=== PATIENT | female | born 1940 | race Caucasian/White ===

== ENCOUNTER 2017-08-24 16:30 | Emergency (ER) | payer MEDICARE, SELFPAY ==
[2017-08-24 16:30] VITALS: BP 102/46; PULSE 96; RESP 26; TEMP 36.9; O2SAT 99; BMI 34.9
--- NOTE | 2017-08-24 17:08 | RAD_ITS ---
XR Chest 2 Views INDICATION: pt stated short of breath cough and fever COMPARISON: None TECHNIQUE: 2 views of the chest FINDINGS: The heart size is mildly enlarged. Pulmonary vascularity is within normal limits. Lungs are clear without evidence of airspace consolidation or pleural effusion. Osseous structures are grossly unremarkable. RAD/Chest PA and Lateral IMPRESSION: Cardiomegaly. Lungs appear clear. at 1849 Reported and signed by: Stacy Tapia MD Electronically Signed: Stacy Tapia MD at 17:47 EST Tel , Service support ,
--- NOTE | 2017-08-24 17:08 | EKG12_ITS ---
Test Reason : SOB Blood Pressure : / mmHG Vent. Rate : 093 BPM Atrial Rate : 093 BPM P-R Int : 178 ms QRS Dur : 084 ms QT Int : 374 ms P-R-T Axes : 020 -21 047 degrees QTc Int : 465 ms Normal sinus rhythm Normal ECG Confirmed by SOLEDAD STREETER, RENY ([id number]), video tape editor ADALID CARTER ([id number]) on 08/27/2017 10:37:34 AM Referred By: EITAN Confirmed By:RENY ROWE MD
--- NOTE | 2017-08-24 17:11 | ED.DCSUM_ITS ---
- ER Visit Summary Date of Service: 08/24/17 Chief Complaint: [] Runny nose harsh cough for almost 2 months History of Present Illness: The patient is a 77 F [] began early June she was thoroughly evaluated as an outpatient by her physicians she believes she was tested for the flu she has been on multiple antibiotics, she has persistence of a harsh dry cough, she was recently referred to Dr. Mullen of ENT who examined her told her she had upper respiratory infection, she is on antibiotic and a nasal spray, she also has a nebulizer machine she can use at home. She has no history of [place] PE or DVT she does have history of prior stroke and a heart murmur. She is able lie flat she is able to walk no orthopnea. She simply states she has a persistence of this harsh cough she feels that has triggered her anxiety, she is taking all of her anxiety medications Physical Examination: [] Vital signs are within normal range she speaking full sentences she is in no distress her pulse ox is 98% on room air she does have a harsh dry cough here her nose is congested the throat is clear the lungs are clear the heart tones really unremarkable the abdomen soft obese but nontender upper lower extreme is unremarkable sinus clubbing or edema neurologically she is awake alert moving all 4 clinically she looks well Test Results: [] Emergency Department Course and Treatment: [] Patient bluntly told me that she feels the symptoms related to her anxiety she wants her anxiety medications adjusted I explained her we will do a screening examination to look for medical condition causing the coughing any adjustments to her anxiety medications need to be obtained by her primary care doctors EKG labs chest x-ray are all unremarkable see those reports, the patient's resting comfortably in the department, she is in absolutely no distress smiling and talking normally I explained her she likely has a URI that is causing the persistent coughing she has been on antibiotics she is currently on antibiotics she is on a nasal inhaler she has a nebulizer machine at home with the meds I have asked her to use that she insists that there is an issue with her anxiety and that net meds need to be adjusted and have asked her to discuss that with her primary care doctors and return for change in symptoms Treatment Plan: [] Disposition: [] Stable Impression: [] URI with harsh cough, history of anxiety, patient concerned her anxiety regimen should be altered This note was generated with [employer] software. It may contain incorrect words, spelling, and punctuation that were not noted in review of the chart prior to signing ED Disposition - Plan for ED Patient: Chief Complaint: Shortness of Breath Referrals: Doris Navarro DO [Primary Care Provider] -
[2017-08-24 17:20] VITALS: PULSE 99; RESP 24
[2017-08-24] MEDS: Ipratropium/Albuterol Sulfate 3 ML AMPUL.NEB INHALATION (17:20)
[2017-08-24] MEDS: MethylPREDNISolone 125 MG/2 ML Vial IV (17:31)
[2017-08-24] MEDS: 0.9% Normal Saline 1,000 ML 150 ML IV (17:42)
[2017-08-24 17:53] LABS: Absolute Lymphocyte Count 1.65 X10^3/ul (0.83-4.51); Absolute Neutrophil Count 1.9 X10^3/uL (2.0-7.7); Basophil# 0.01 X10^3/uL; Basophil% 0.2 % (0-1); Eosinophil# 0.04 X10^3/uL; Hemoglobin 13.6 g/dl (12.0-15.0); Lymphocyte # 1.65 X10^3/ul (4.0); Lymphocyte % 40.1 % (19-41); Mean Corp Hgb Conc 32.4 g/gl (32-36); Mean Corpuscular Hgb 28.5 pg (27.0-32.0); Mean Corpuscular Volume 87.9 fL (81-99); Mean Platelet Vol. 9.9 fl (6.2-12.0); Monocyte# 0.47 X10^3/uL; Monocyte% 11.4 % (0-10); Neutrophil # 1.93 X10^3/uL (2.7-7.7); Neutrophil % 47.1 % (47-70); Platelet Count 215 K/mm3 (150-450); RBC Distribution Width SD 48.5 fl (35.1-43.9); Red Blood Count 4.78 M/mm3 (4.2-5.4); White Blood Count 4.1 K/mm3 (4.4-11.0)
[2017-08-24 17:56] LABS: POSITIVE COUNT NO; POSITIVE DIFFERENTIAL NO; POSITIVE MORPHOLOGY NO
[2017-08-24 18:11] LABS: Anion Gap 11 (5-15); BUN 30 mg/dL (7-18); Calcium,Total 9.3 mg/dL (8.5-10.1); Chloride 105 mmol/L (98-107); Creatinine, Serum 1.76 mg/dL (0.55-1.02); EST Glomerular Filtration Rate 30 mL/min (>60); Est Glom Filt Rate - Afr Amer 36 mL/min (>60); Estimated Creatinine Clearance 24.47 ml/min; Glucose 178 mg/dL (70-110); Potassium 3.5 mmol/L (3.5-5.1); Sodium Level 140 mmol/L (136-145)
[2017-08-24 18:17] VITALS: BP 175/98; PULSE 95; RESP 24; O2SAT 100
--- NOTE | 2017-08-24 18:20 | ED.DEP ---
ED Disposition - Plan for ED Patient: Chief Complaint: Shortness of Breath Instructions: ED Reactive Airway Disease, ED Bronchitis Asthmatic, ED Upper Resp Infec No Abx Tx Referrals: Doris Navarro DO [Primary Care Provider] -
[2017-08-24 18:51] LABS: BNP,B-Type NATRIURETIC PEPTIDE 13.3 pg/mL (0-100)
[2017-08-24 19:51] VITALS: BP 173/86; PULSE 91; RESP 26; O2SAT 99
== END 2017-08-24 19:52 | disposition home or self-care (01) ==
PROVIDERS: Emergency Provider Emergency Medicine; Family Provider Internal Medicine; PCP Internal Medicine
DX: J06.9 Acute upper respiratory infection, unspecified (principal); F41.9 Anxiety disorder, unspecified; R05 Cough; R06.02 Shortness of breath; R01.1 Cardiac murmur, unspecified; Z86.73 Personal history of transient ischemic attack (TIA), and cerebral infarction without residual deficits; Z79.899 Other long term (current) drug therapy
CPT/HCPCS: 71046; 80048; 83880; 84484; 85025; 93005; 94640; 96361; 96374; 99284; J7030; A4216

== ENCOUNTER → 2017-10-29 11:22 | Outpatient (CLI) | payer MEDICARE, SELFPAY ==
--- NOTE | 2017-10-29 11:23 | RAD_ITS ---
STUDY: X-RAY - PELVIS AND LEFT HIP REASON FOR EXAM: Female, 77 years old. Left hip pain for 2 weeks. No history of trauma. TECHNIQUE: Radiological exam, hip, unilateral, with pelvis when performed; 2 or 3 views. COMPARISON: None. FINDINGS: There is a non-specific bowel gas pattern. Normal visualized soft tissue structures. Normal bilateral iliac wings, sacroiliac joints and visualized sacrum. Normal bilateral superior and inferior pubic rami. Normal pubic symphysis. Normal bilateral ischial tuberosities. Right hip is grossly normal. Normal visualized left femoral head. Normal acetabulum. Normal hip joint. Disc space narrowing in the lower lumbar spine. Phleboliths left hemipelvis. RAD/Hip 2-3 Views with Pelvis IMPRESSION: Normal x-ray examination of the pelvis and hip. Degenerative changes of the lower lumbar spine. Electronically Signed: Benji Finch MD at 0:01 EDT , Service support ,
== END ==
PROVIDERS: Family Provider Internal Medicine; PCP Internal Medicine; Visit Provider Nurse Practitioner Gerontology
DX: M25.551 Pain in right hip (principal); M51.36 Other intervertebral disc degeneration, lumbar region
CPT/HCPCS: 73502

== ENCOUNTER 2017-11-12 10:30 | Outpatient (RCR) | payer MEDICARE, SELFPAY ==
--- NOTE | 2018-05-08 08:52 | HP.PT.NRP ---
HP - Discharge Summary (1) - Patient Information NITZA CRUZ was seen in my office for initial evaluation on 11/05/17. The following Plan of Care was established for this patient: Initial Frequency: 2x /Week Initial Duration: 4 Weeks - Anticipated Interventions Patient/Client Instruction: Educate patient on: Condition, Plan of Care, Risk Factors, Benefits of Fitness Program For the Purpose of:: To improve health and function, To foster healthy habits, To improve decision making, To facilitate caregiver knowledge, To improve self management, To prevent re-injury, To improve ability to perform tasks related to life management, To improve tolerance to ADL's Therapeutic Exercise to Include: Strength training, Power training, Endurance training, Postural training, Flexibilty training, Gait and locomotor training, Passive ROM, Active ROM, Dynamic Lumbar Stabilization For the Purpose of:: To decrease pain, To increase ROM, To improve nutrient delivery to tissue, To increase oxygenation perfusion, To improve muscle performance and motor function, To improve ability to perform ADL's, To improve health of tissue, To decrease soft tissue restriction, To increase flexibility/ROM Manual Therapy Techniques to Include: Mobilization, Passive ROM, Functional dry needling For the Purpose of:: To decrease pain, To increase ROM, To improve nutrient delivery to tissue, To increase oxygenation perfusion, To improve muscle performance and motor function IF ES: Yes Cryotherapy (ice pack, ice massage): Yes Thermo therapy (hot pack): Yes Ultrasound (thermal/non thermal): Yes For the Purpose of:: To decrease pain, To increase ROM This patient was last seen in our office 11/05/17. Pertinent comments regarding their Physical therapy will appear below: Pt. was seen for her L hip pain. At our last visit, pt. reports no longer having pain. She was to complete exercises on her own and follow up with PT if needed. Pt. has not sid seen in several months and will be DC from PT at this point in time. At this point I will be discontinuing this patient from physical therapy. I would be happy to see this patient again in the future if found appropriate by the physician. Thank you! Eugenio Correa
== END 2017-11-12 19:00 | disposition home or self-care (01) ==
LOC: PT 10:30
PROVIDERS: Family Provider Internal Medicine; PCP Internal Medicine; Visit Provider Internal Medicine
DX: M25.552 Pain in left hip (principal)
CPT/HCPCS: 97110; 97162

== ENCOUNTER → 2017-11-25 10:33 | Outpatient (CLI) | payer MEDICARE, SELFPAY ==
--- NOTE | 2017-11-25 10:35 | US_ITS ---
STUDY: ABDOMINAL ULTRASOUND - RIGHT UPPER QUADRANT REASON FOR VISIT: Female, 77 years old. Elevated LFTs TECHNIQUE: Ultrasound evaluation of the right upper quadrant was performed with real-time and static anderson-scale imaging. TECHNICAL QUALITY: Adequate. COMPARISON: Previous CTs FINDINGS: Liver: The liver measures 18.1 cm. There is increased echogenicity consistent with fatty infiltration. The bile ducts are within normal limits. There is hepatic color flow. The direction of portal flow is hepatopetal. There is no demonstrated mass lesion. Gallbladder: The patient is status post cholecystectomy. Common Bile Duct (C.B.D.): The common bile duct measures 6 mm. Pancreas: Normal size of the head, body and tail of the pancreas. There is increased echogenicity of the pancreas. There is no demonstrated pancreatic mass or cyst. Right Kidney: Normal size of the right kidney. The right kidney measures 10.3 x 6.1 x 5.7 cm. Normal renal cortex. The right cortex measures 0.9 cm. There are multiple simple renal cysts measuring between 1.3 and 4.0 cm There is no right hydronephrosis. US/Liver IMPRESSION: Fatty infiltration of liver, no discrete lesion Previous cholecystectomy Nonspecific echogenic pancreas Simple right renal cysts Electronically Signed: Leopoldo Hand MD at 12:34 EDT , Service support ,
== END ==
PROVIDERS: Family Provider Internal Medicine; PCP Internal Medicine; Visit Provider Internal Medicine
DX: K76.0 Fatty (change of) liver, not elsewhere classified (principal); Z90.49 Acquired absence of other specified parts of digestive tract; N28.1 Cyst of kidney, acquired; R74.8 Abnormal levels of other serum enzymes
CPT/HCPCS: 76705

== ENCOUNTER 2018-02-06 17:28 | Observation (INO) | payer MEDICARE, SELFPAY ==
[2018-02-06] VITALS (10 sets, daily range): BP systolic 139–163; BP diastolic 59–113; PULSE 57–71; RESP 15–21; TEMP 36.4–36.9; O2SAT 95–98; BMI 36.5
--- NOTE | 2018-02-06 17:55 | EKG12_ITS ---
Test Reason : HEADACHE Blood Pressure : / mmHG Vent. Rate : 064 BPM Atrial Rate : 064 BPM P-R Int : 204 ms QRS Dur : 088 ms QT Int : 410 ms P-R-T Axes : 040 -23 071 degrees QTc Int : 422 ms Normal sinus rhythm Normal ECG Confirmed by KYRA STREETER, FERN ([id number]), medical transcription editor ADALID CARTER ([id number]) on 02/11/2018 2:12:44 PM Referred By: RON Confirmed By:FERN RAE MD
--- NOTE | 2018-02-06 17:55 | CT_ITS ---
STUDY: CT BRAIN WITHOUT CONTRAST REASON FOR EXAM: Female, 77 years old. Blurred vision and headache. Prior history of stroke. RADIATION DOSAGE (If Supplied By Facility): CTDIvol = ( 44.99 ) mGy, DLP = ( 779.24 ) mGycm TECHNIQUE: Transaxial CT imaging of the brain was performed without administration of intravenous contrast material. Individualized dose optimization techniques were used for this CT. COMPARISON: Prior CT exam of March 03, 2017 FINDINGS: Normal soft tissue structures. Normal calvarium. There is mild cerebral atrophy with widening of the extra-axial spaces and ventricular dilatation. There are areas of decreased attenuation within the white matter tracts of the supratentorial brain, consistent with microvascular disease changes. More advanced focal ischemic changes in the deep white matter of the left hemisphere, periventricular which may be the sequelae of an old infarct. The finding is stable from the prior examination. Old lacunar infarct of the mid karlene. There is mild cerebellar atrophy. There is no intracranial hemorrhage. There are no findings of an acute ischemic infarction. Mild mucosal thickening and a small retention cyst at the base of the left maxillary sinus. CT/Brain/Head without Contrast IMPRESSION: No acute intracranial findings or changes. Negative for hemorrhage, hematoma or mass density. Negative for definitive demarcation of the new nonhemorrhagic infarct zone. Stable involutional changes. Asymmetric small vessel ischemic changes versus old white matter infarct left hemisphere. Old lacunar infarct of the mid karlene. Incidental sinus findings as above. Electronically Signed: Renata Lee MD at 19:29 EDT , Service support ,
[2018-02-06 18:21] LABS: Bedside Glucose 152 mg/dL (70-110)
[2018-02-06 18:22] LABS: Absolute Lymphocyte Count 1.73 X10^3/ul (0.83-4.51); Absolute Neutrophil Count 6.7 X10^3/uL (2.0-7.7); Basophil# 0.04 X10^3/uL; Basophil% 0.4 % (0-1); Eosinophil# 0.38 X10^3/uL; Hematocrit 38.9 % (37-47); Hemoglobin 12.7 g/dl (12.0-15.0); Lymphocyte # 1.73 X10^3/ul (4.0); Lymphocyte % 18.3 % (19-41); Mean Corp Hgb Conc 32.6 g/gl (32-36); Mean Corpuscular Hgb 29.1 pg (27.0-32.0); Mean Corpuscular Volume 89.2 fL (81-99); Mean Platelet Vol. 10.5 fl (6.2-12.0); Monocyte# 0.59 X10^3/uL; Monocyte% 6.2 % (0-10); Neutrophil % 70.8 % (47-70); Platelet Count 248 K/mm3 (150-450); RBC Distribution Width CV 14.1 % (11.6-14.6); Red Blood Count 4.36 M/mm3 (4.2-5.4); White Blood Count 9.5 K/mm3 (4.4-11.0)
[2018-02-06 18:33] LABS: Anion Gap 8 (5-15); BUN 24 mg/dL (7-18); BUN/Creat Ratio 16.9 RATIO (10-20); Calcium,Total 9.5 mg/dL (8.5-10.1); Chloride 103 mmol/L (98-107); Creatinine, Serum 1.42 mg/dL (0.55-1.02); EST Glomerular Filtration Rate 38 mL/min (>60); Est Glom Filt Rate - Afr Amer 46 mL/min (>60); Estimated Creatinine Clearance 44.65 ml/min; Glucose 160 mg/dL (74-106); Potassium 4.2 mmol/L (3.5-5.1); Sodium Level 139 mmol/L (136-145)
--- NOTE | 2018-02-06 18:35 | RAD_ITS ---
STUDY: X-RAY CHEST REASON FOR EXAM: Female, 77 years old. Headache and blurred vision. TECHNIQUE: 1 view COMPARISON: Prior chest radiograph of August 24, 2017 FINDINGS: Lung medeiros remain expanded without new consolidation or focal atelectasis. Mild chronic change at the right lung base above an elevated diaphragm. Normal size heart. Fatty mediastinum. Normal visualized pulmonary arteries. There is atherosclerotic calcification of the aortic arch with tortuosity. Mild scoliosis. Multiple prior healed right rib fractures. There is no demonstrated abnormality of the visualized soft tissue structures of the upper abdomen. RAD/Chest 1 View IMPRESSION: No acute cardiopulmonary findings or changes. Negative for new consolidation, focal atelectasis or a substantial pleural effusion. Mild chronic changes in the right lung base above a mildly elevated diaphragm. Multiple prior healed right rib fractures. Electronically Signed: Renata Lee MD at 18:58 EDT , Service support ,
[2018-02-06 18:38] LABS: International Normalized Ratio 0.9; Prothrombin Time (Protime)PT. 12.5 SECONDS (11.7-14.9)
[2018-02-06 19:01] LABS: POSITIVE COUNT NO; POSITIVE DIFFERENTIAL NO; POSITIVE MORPHOLOGY NO
[2018-02-06] MEDS: Ondansetron 4 MG/2 ML Vial IV (19:30)
--- NOTE | 2018-02-06 20:24 | ED.DCSUM_ITS ---
- ER Visit Summary Date of Service: 02/06/18 Chief Complaint: Double vision History of Present Illness: The patient is a 77 F presenting for evaluation secondary to diplopia. Patient states that yesterday she started to notice that she was having some double vision. She reports that this came and went. Patient reports that today she was noticing that she was having some blurry vision, and then when she was in the car she had a sudden onset of worsening double vision. She reports that things that are far away especially appear to be side by side. This is improved by closing one eye. Patient denies that she has any sort of numbness weakness or speech difficulty associated with this. Patient had a history of a stroke in the distant past. She denies any head injuries. She does endorse mild headache associated with it. No infectious signs or symptoms. Review of systems otherwise negative. Physical Examination: Vital signs are within normal limits, patient is afebrile. General: Patient is well-nourished well-developed and in no acute distress. Head: Normocephalic, atraumatic Eyes: Pupils equal round and reactive bilaterally, extra occular motion intact bialterally, no evidence of disconjugate gaze or nystagmus ENT: Moist mucous membranes Neck: Supple, no lymphadenopathy, no JVD, no meningismus CVS: Heart regular rate and rhythm, no murmurs, rubs or gallops, radial pulses 2 + bilaterally Resp: Respirations nondistressed, lung sounds clear bilaterally Abdomen: Soft, nontender, nondistended, no palpable masses, normal bowel sounds Back: Nontender Extremities: Nontender, atraumatic, active full range of motion, no peripheral edema Skin: warm, no rashes, no petechia Neuro: Alert and oriented x 4, CN 2-12 intact, no lateralizing neurological defecits, NIH stroke scale is 0, normal cerebellar testing Psyc: Normal affect Test Results: CT brain shows chronic changes. EKG demonstrates sinus rate [address] segments normal T waves no changes from prior. CBC chemistry and troponin are unremarkable. Emergency Department Course and Treatment: Patient presents for evaluation secondary to diplopia. A stroke workup was obtained and was found to be unremarkable. Patient's last stroke workup was 6 years ago. I believe she requires admission. I discussed this with the hospitalist. Disposition: Admission Impression: 1. Diplopia This note was generated with [employer] dictation software. It may contain incorrect words, spelling, and punctuation that were not noted in review of the chart prior to signing ED Disposition - Plan for ED Patient: Chief Complaint: Headache Referrals: Doris Navarro DO [Primary Care Provider] -
--- NOTE | 2018-02-06 20:51 | PCM.HP.STD ---
Problem List (1) CKD (chronic kidney disease) stage 3, GFR 30-59 ml/min Status: Chronic (2) Esophageal reflux Status: Chronic (3) Type 2 diabetes mellitus Status: Chronic (4) Obesity Status: Chronic (5) Hypothyroidism Status: Chronic (6) CVA (cerebral vascular accident) Status: Chronic (7) Hypertension Status: Chronic History of Present Illness Date of Admission: 02/06/18 Chief Complaint: Diplopia, blurry vision. The patient is a 77 year old F with past medical history as mentioned above presented to the emergency room because of diplopia and blurry vision. Her symptoms started yesterday evening with seeing things double, intermittent, comes and goes, associated with blurry vision, improved by closing one eye and it happens on both eyes and taking care of glasses off does not make any difference. Her mentioned that she complained of headache 2 days ago and usually never complains of headache. She denied slurred speech, facial numbness and tingling. She denied numbness or tingling of both upper or lower extremities. She had history of stroke with very minimal weakness on the right side of her body. She denied head injury or mechanical fall. She denied ear symptoms or pain. She denies fever or chills. She denied chest pain or shortness of breath. In the emergency department, her vital signs were stable. Her routine blood work was remarkable for creatinine 1.42, otherwise normal. EKG revealed normal sinus rhythm without evidence of cardiac arrhythmias or acute ischemic changes. Troponin is negative. CT scan brain showed no acute infarction or hemorrhage. Chest x-ray showed no acute findings. She is being admitted for diplopia/blurred vision, possible TIA for evaluation. Past Medical History Past Medical History (Chronic Problems): Chronic Problems CKD (chronic kidney disease) stage 3, GFR 30-59 ml/min (Chronic) Esophageal reflux (Chronic) History of pancreatitis (Chronic) History of abdominal pain (Chronic) Type 2 diabetes mellitus (Chronic) Obesity (Chronic) Hypothyroidism (Chronic) CVA (cerebral vascular accident) (Chronic) Hypertension (Chronic) Allergies naproxen [From Naprosyn] Allergy (Verified 02/06/18 17:38) Hives Penicillins [PCN] Allergy (Verified 02/06/18 17:38) Hives guaifenesin [From Mucinex] Adverse Reaction (Verified 02/06/18 17:38) Unknown ketoprofen Adverse Reaction (Verified 02/06/18 17:38) Unknown loracarbef [From Lorabid] Adverse Reaction (Verified 02/06/18 17:38) Unknown bee sting Adverse Reaction (Uncoded 02/06/18 17:38) Unknown Home Medications: Ambulatory Orders Medication Instructions Recorded Alprazolam 0.05 mg PO BID PRN 08/09/13 Amlodipine Besylate 5 mg PO DAILY 08/09/13 Celecoxib [Celebrex] 100 mg PO DAILY 08/09/13 Citalopram Hydrobromide 40 mg PO DAILY 08/09/13 [Citalopram HBr] Clopidogrel Bisulfate [Clopidogrel] 75 mg PO DAILY 08/09/13 Hydrochlorothiazide 25 mg PO DAILY 08/09/13 Metformin HCl [Metformin HCl ER] 500 mg PO BREAKFAST 08/09/13 Metoprolol Tartrate [Lopressor 100 mg PO DAILY 08/09/13 (beta mert)] Omeprazole 20 mg PO DAILY 08/09/13 Rosuvastatin Calcium [Crestor] 5 mg PO DAILY 09/19/15 Losartan Potassium [Cozaar] 50 mg PO BID 10/22/16 Levothyroxine [Synthroid] 200 mcg PO DAILY 02/06/18 Surgical History: appendectomy, cholecystectomy Psychiatric History: No pertinent psych hx [employer] History: No pertinent [employer]ER history Lives: Spouse/ Significant Other Smoking Status: Never smoker Alcohol: None Drugs: None - *Family History Maternal History Items: No pertinent history Paternal History Items: No pertinent history Review of Systems Constitutional: Denies: Anorexia, Chills, Fever, Weakness Eyes: Reports: Blurred vision, Double vision. Denies: Drainage, Redness, Vision Change HEENT: Denies: Difficulty Hearing, Ear Pain, Eye Pain, Nasal Congestion, Sore Throat Cardiovascular: Denies: Chest Pain, Chest Pressure, Chest Tightness, Heaviness, Light Headedness, Palpitations, Syncope Respiratory: Denies: Cough, Pleuritic Pain, Shortness of Breath, Sputum production, Wheezing Gastrointestinal: Denies: Abdominal Pain, Constipation, Diarrhea, Nausea, Vomiting Genitourinary: Denies: Dysuria, Frequency, Hematuria Musculoskeletal: Denies: Arm Pain, Back Pain, Foot Pain Skin: Denies: Dryness, Rash Neurological: Reports: Blurred vision, Double vision, Headaches. Denies: Balance problems, Change in Speech, Slurred speech, Confusion, Focal weakness, Numbness, Tingling Psychiatric: Denies: Anxiety, Depression Endocrine: Denies: Change in Body Habitus, Polydipsia VTE Information - Inpt Only VTE Present on Admission: No VTE Mechan Device Prophylaxis: None VTE Pharm Prophylaxis ordered?: Yes - Physical Exam General: Alert, Oriented x3, Cooperative, No apparent distress HEENT: Atraumatic, PERRLA, EOMI Oral: Moist Mucosa, No Gingival or Mucosal Lesions/ Ulcerations Neck: Supple, No JVD, Negative Carotid Bruits, Trachea Midline, Thyroid Normal Size and Texture Lungs: Clear to auscultation, No rhonchi, No wheeze, No rales, Diminished Cardiovascular: Regular rate, Regular Rhythm, Normal S1, Normal S2, PMI Normal Abdomen: Bowel Sounds Present, Soft, Non Tender, Non-Distended, No Hepato-splenomegaly, Obese Extremities: No clubbing, No cyanosis, No edema Skin: No rashes, No breakdown Musculoskeletal: No Tenderness to Palpation of Joints or Extremities Lymphatic: No Cervical, Supraclavicular, or Inguinal Adenopathy Neurological: Cranial nerves II-XII grossly intact, Motor Exam 5/5 strength throughout Psych/Mental Status: Normal Affect, Appropriate, Alert and oriented to time, place, person, mood and affect Vital Signs Temp Pulse Resp BP Pulse Ox 97.6 F L 63 17 150/68 H 98 02/06/18 17:29 02/06/18 20:19 02/06/18 20:19 02/06/18 20:19 02/06/18 20:19 Oxygen Delivery Method Room Air Weight: 185 lb Body Mass Index (BMI) 0.2 Finger Stick Blood Glucose 152 Laboratory Tests Past 24 Hrs 02/06/18 02/06/18 02/06/18 17:45 17:45 17:45 WBC 9.5 RBC 4.36 Hgb 12.7 Hct 38.9 MCV 89.2 MCH 29.1 MCHC 32.6 RDW 14.1 RDW Differential 45.0 H Plt Count 248 MPV 10.5 Immature Gran % (Auto) 0.300 Neut % (Auto) 70.8 H Lymph % (Auto) 18.3 L [place] % (Auto) 6.2 Eos % (Auto) 4.0 Baso % (Auto) 0.4 Absolute Neuts (auto) 6.7 Absolute Lymphs (auto) 1.73 Total Counted Not Reportable PT 12.5 INR 0.9 APTT 33.0 Sodium 139 Potassium 4.2 Chloride 103 Carbon Dioxide 28.0 Anion Gap 8 BUN 24 H Creatinine 1.42 H Estim Creat Clear Calc 44.65 Est GFR (MDRD) Af Amer 46 L Est GFR (MDRD) Non-Af 38 L BUN/Creatinine Ratio 16.9 Glucose 160 H Calcium 9.5 Troponin I < 0.015 POC Glucose 02/06/18 18:16 POC Glucose 152 H Clinical Impression(s) from Imaging Studies Brain CT 02/06/18 17:55 IMPRESSION: No acute intracranial findings or changes. Negative for hemorrhage, hematoma or mass density. Negative for definitive demarcation of the new nonhemorrhagic infarct zone. Stable involutional changes. Asymmetric small vessel ischemic changes versus old white matter infarct left hemisphere. Old lacunar infarct of the mid karlene. Incidental sinus findings as above. Electronically Signed: Renata Lee MD at 19:29 EDT , Service support , Chest X-Ray 02/06/18 18:35 IMPRESSION: No acute cardiopulmonary findings or changes. Negative for new consolidation, focal atelectasis or a substantial pleural effusion. Mild chronic changes in the right lung base above a mildly elevated diaphragm. Multiple prior healed right rib fractures. Electronically Signed: Renata Lee MD at 18:58 EDT , Service support , Assessment/Plan This is a 77 years old female patient presented to the emergency room because of blurred vision/diplopia and she is being admitted for evaluation for probable TIA. #1 diplopia/blurred vision/questionable TIA versus acute stroke: Initial CT scan brain without acute findings. No focal deficit on physical exam. Vital signs are stable. EKG revealed normal sinus rhythm, no acute ischemic changes. Routine blood work reviewed. She did have history of stroke around 8 years ago with minimal residual right-sided body weakness. Plan: Admit to PCU, cardiac monitoring, NIH stroke scale, MRI brain, 2D echocardiogram, bilateral carotid Doppler, neurology consult, continue Plavix and Crestor, PT OT evaluation and treatment. #2 hypertension: Blood pressure stable, continue Norvasc, HCTZ and losartan as well as metoprolol. #3 type 2 diabetes mellitus: ADA diet, Accu-Cheks, insulin sliding scale, hold metformin. #4 hypothyroidism: Continue levothyroxine. #5 history of stroke: With no obvious significant residual deficit of the patient complained of right-sided weakness but her power is 5.5 on all limbs. Plan as above, continue Plavix and statins. #6 hyperlipidemia: Continue statins. #7 stage III chronic kidney disease: Baseline creatinine is around 1.3-1.7 mg/dL. Admission creatinine is 1.42, stable. #8 DVT prophylaxis: Subcu heparin. This note was generated with [employer] dictation software. It may contain incorrect words, spelling, and punctuation that were not noted in checking the note before signing. Code Visit OBSV E&M: 52540 Initial observation care L3
--- NOTE | 2018-02-06 21:01 | HP.PCM_ITS ---
Problem List (1) CKD (chronic kidney disease) stage 3, GFR 30-59 ml/min Status: Chronic (2) Esophageal reflux Status: Chronic (3) Type 2 diabetes mellitus Status: Chronic (4) Obesity Status: Chronic (5) Hypothyroidism Status: Chronic (6) CVA (cerebral vascular accident) Status: Chronic (7) Hypertension Status: Chronic History of Present Illness Date of Admission: 02/06/18 Chief Complaint: Diplopia, blurry vision. The patient is a 77 year old F with past medical history as mentioned above presented to the emergency room because of diplopia and blurry vision. Her symptoms started yesterday evening with seeing things double, intermittent, comes and goes, associated with blurry vision, improved by closing one eye and it happens on both eyes and taking care of glasses off does not make any difference. Her mentioned that she complained of headache 2 days ago and usually never complains of headache. She denied slurred speech, facial numbness and tingling. She denied numbness or tingling of both upper or lower extremities. She had history of stroke with very minimal weakness on the right side of her body. She denied head injury or mechanical fall. She denied ear symptoms or pain. She denies fever or chills. She denied chest pain or shortness of breath. In the emergency department, her vital signs were stable. Her routine blood work was remarkable for creatinine 1.42, otherwise normal. EKG revealed normal sinus rhythm without evidence of cardiac arrhythmias or acute ischemic changes. Troponin is negative. CT scan brain showed no acute infarction or hemorrhage. Chest x-ray showed no acute findings. She is being admitted for diplopia/blurred vision, possible TIA for evaluation. Past Medical History Past Medical History (Chronic Problems): Chronic Problems CKD (chronic kidney disease) stage 3, GFR 30-59 ml/min (Chronic) Esophageal reflux (Chronic) History of pancreatitis (Chronic) History of abdominal pain (Chronic) Type 2 diabetes mellitus (Chronic) Obesity (Chronic) Hypothyroidism (Chronic) CVA (cerebral vascular accident) (Chronic) Hypertension (Chronic) Allergies naproxen [From Naprosyn] Allergy (Verified 02/06/18 17:38) Hives Penicillins [PCN] Allergy (Verified 02/06/18 17:38) Hives guaifenesin [From Mucinex] Adverse Reaction (Verified 02/06/18 17:38) Unknown ketoprofen Adverse Reaction (Verified 02/06/18 17:38) Unknown loracarbef [From Lorabid] Adverse Reaction (Verified 02/06/18 17:38) Unknown bee sting Adverse Reaction (Uncoded 02/06/18 17:38) Unknown Home Medications: Ambulatory Orders Medication Instructions Recorded Alprazolam 0.05 mg PO BID PRN 08/09/13 Amlodipine Besylate 5 mg PO DAILY 08/09/13 Celecoxib [Celebrex] 100 mg PO DAILY 08/09/13 Citalopram Hydrobromide 40 mg PO DAILY 08/09/13 [Citalopram HBr] Clopidogrel Bisulfate [Clopidogrel] 75 mg PO DAILY 08/09/13 Hydrochlorothiazide 25 mg PO DAILY 08/09/13 Metformin HCl [Metformin HCl ER] 500 mg PO BREAKFAST 08/09/13 Metoprolol Tartrate [Lopressor 100 mg PO DAILY 08/09/13 (beta mert)] Omeprazole 20 mg PO DAILY 08/09/13 Rosuvastatin Calcium [Crestor] 5 mg PO DAILY 09/19/15 Losartan Potassium [Cozaar] 50 mg PO BID 10/22/16 Levothyroxine [Synthroid] 200 mcg PO DAILY 02/06/18 Surgical History: appendectomy, cholecystectomy Psychiatric History: No pertinent psych hx 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 Denies: Drainage, Redness, Vision Change HEENT: Denies: Difficulty Hearing, Ear Pain, Eye Pain, Nasal Congestion, Sore Throat Cardiovascular: Denies: Chest Pain, Chest Pressure, Chest Tightness, Heaviness, Light Headedness, Palpitations, Syncope Respiratory: Denies: Cough, Pleuritic Pain, Shortness of Breath, Sputum production, Wheezing Gastrointestinal: Denies: Abdominal Pain, Constipation, Diarrhea, Nausea, Vomiting Genitourinary: Denies: Dysuria, Frequency, Hematuria Musculoskeletal: Denies: Arm Pain, Back Pain, Foot Pain Skin: Denies: Dryness, Rash Neurological: Reports: Blurred vision, Double vision, Headaches. Denies: Balance problems, Change in Speech, Slurred speech, Confusion, Focal weakness, Numbness, Tingling Psychiatric: Denies: Anxiety, Depression Endocrine: Denies: Change in Body Habitus, Polydipsia VTE Information - Inpt Only VTE Present on Admission: No VTE Mechan Device Prophylaxis: None VTE Pharm Prophylaxis ordered?: Yes - Physical Exam General: Alert, Oriented x3, Cooperative, No apparent distress HEENT: Atraumatic, PERRLA, EOMI Oral: Moist Mucosa, No Gingival or Mucosal Lesions/ Ulcerations Neck: Supple, No JVD, Negative Carotid Bruits, Trachea Midline, Thyroid Normal Size and Texture Lungs: Clear to auscultation, No rhonchi, No wheeze, No rales, Diminished Cardiovascular: Regular rate, Regular Rhythm, Normal S1, Normal S2, PMI Normal Abdomen: Bowel Sounds Present, Soft, Non Tender, Non-Distended, No Hepato- splenomegaly, Obese Extremities: No clubbing, No cyanosis, No edema Skin: No rashes, No breakdown Musculoskeletal: No Tenderness to Palpation of Joints or Extremities Lymphatic: No Cervical, Supraclavicular, or Inguinal Adenopathy Neurological: Cranial nerves II-XII grossly intact, Motor Exam 5/5 strength throughout Psych/Mental Status: Normal Affect, Appropriate, Alert and oriented to time, place, person, mood and affect Vital Signs Temp Pulse Resp BP Pulse Ox 97.6 F L 63 17 150/68 H 98 02/06/18 17:29 02/06/18 20:19 02/06/18 20:19 02/06/18 20:19 02/06/18 20:19 Oxygen Delivery Method Room Air Weight: 185 lb Body Mass Index (BMI) 0.2 Finger Stick Blood Glucose 152 Laboratory Tests Past 24 Hrs 02/06/18 02/06/18 02/06/18 17:45 17:45 17:45 WBC 9.5 RBC 4.36 Hgb 12.7 Hct 38.9 MCV 89.2 MCH 29.1 MCHC 32.6 RDW 14.1 RDW Differential 45.0 H Plt Count 248 MPV 10.5 Immature Gran % (Auto) 0.300 Neut % (Auto) 70.8 H Lymph % (Auto) 18.3 L [place] % (Auto) 6.2 Eos % (Auto) 4.0 Baso % (Auto) 0.4 Absolute Neuts (auto) 6.7 Absolute Lymphs (auto) 1.73 Total Counted Not Reportable PT 12.5 INR 0.9 APTT 33.0 Sodium 139 Potassium 4.2 Chloride 103 Carbon Dioxide 28.0 Anion Gap 8 BUN 24 H Creatinine 1.42 H Estim Creat Clear Calc 44.65 Est GFR (MDRD) Af Amer 46 L Est GFR (MDRD) Non-Af 38 L BUN/Creatinine Ratio 16.9 Glucose 160 H Calcium 9.5 Troponin I < 0.015 POC Glucose 02/06/18 18:16 POC Glucose 152 H Clinical Impression(s) from Imaging Studies Brain CT 02/06/18 17:55 IMPRESSION: No acute intracranial findings or changes. Negative for hemorrhage, hematoma or mass density. Negative for definitive demarcation of the new nonhemorrhagic infarct zone. Stable involutional changes. Asymmetric small vessel ischemic changes versus old white matter infarct left hemisphere. Old lacunar infarct of the mid karlene. Incidental sinus findings as above. Electronically Signed: Renata Lee MD at 19:29 EDT , Service support , Chest X-Ray 02/06/18 18:35 IMPRESSION: No acute cardiopulmonary findings or changes. Negative for new consolidation, focal atelectasis or a substantial pleural effusion. Mild chronic changes in the right lung base above a mildly elevated diaphragm. Multiple prior healed right rib fractures. Electronically Signed: Renata Lee MD at 18:58 EDT , Service support , Assessment/Plan This is a 77 years old female patient presented to the emergency room because of blurred vision/diplopia and she is being admitted for evaluation for probable TIA. #1 diplopia/blurred vision/questionable TIA versus acute stroke: Initial CT scan brain without acute findings. No focal deficit on physical exam. Vital signs are stable. EKG revealed normal sinus rhythm, no acute ischemic changes. Routine blood work reviewed. She did have history of stroke around 8 years ago with minimal residual right-sided body weakness. Plan: Admit to PCU, cardiac monitoring, NIH stroke scale, MRI brain, 2D echocardiogram, bilateral carotid Doppler, neurology consult, continue Plavix and Crestor, PT OT evaluation and treatment. #2 hypertension: Blood pressure stable, continue Norvasc, HCTZ and losartan as well as metoprolol. #3 type 2 diabetes mellitus: ADA diet, Accu-Cheks, insulin sliding scale, hold metformin. #4 hypothyroidism: Continue levothyroxine. #5 history of stroke: With no obvious significant residual deficit of the patient complained of right-sided weakness but her power is 5.5 on all limbs. Plan as above, continue Plavix and statins. #6 hyperlipidemia: Continue statins. #7 stage III chronic kidney disease: Baseline creatinine is around 1.3-1.7 mg/ dL. Admission creatinine is 1.42, stable. #8 DVT prophylaxis: Subcu heparin. This note was generated with [employer] dictation software. It may contain incorrect words, spelling, and punctuation that were not noted in checking the note before signing. Code Visit OBSV E&M: 30845 Initial observation care L3
--- NOTE | 2018-02-06 21:53 | CDU_ITS ---
Reason For Study: TIA Rt. Velocities/BP Lt. Velocities/BP Prox CCA 89.1/16.4 cm/sec. Prox CCA 95.0/16.4 cm/sec. Mid CCA 78.0/16.4 cm/sec. Mid CCA 86.2/17.6 cm/sec. Dist CCA 75.0/16.4 cm/sec. Dist CCA 66.3/15.2 cm/sec. Prox ICA 46.9/8.3 cm/sec. Prox ICA 66.8/18.2 cm/sec. Mid ICA 80.1/21.6 cm/sec. Mid ICA 95.4/24.1 cm/sec. Dist ICA 69.3/12.5 cm/sec. Dist ICA 99.6/24.4 cm/sec. Rt. ICA/CCA = 1.0. Lt. ICA/CCA = 1.2. Prox ECA 76.2/9.4 cm/sec. Prox ECA 87.9/7.0 cm/sec. Rt. Vert. 52.8/11.7 cm/sec. Lt. Vert. 65.2/11.8 cm/sec. Right Extracranial There is intimal thickening but no significant atherosclerotic plaque noted in the right common carotid artery. There is heterogeneous, irregular atherosclerotic plaque noted in the right internal carotid artery. The right internal carotid artery is very tortuous. There is intimal thickening but no significant atherosclerotic plaque noted in the right external carotid artery. Antegrade flow is noted in the right vertebral artery. Left Extracranial There is intimal thickening but no significant atherosclerotic plaque noted in the left common carotid artery. There is no significant atherosclerotic plaque noted in the left internal carotid artery. The left internal carotid artery is very tortuous. There is intimal thickening but no significant atherosclerotic plaque noted in the left external carotid artery. Antegrade flow is noted in the left vertebral artery. Procedure Carotid Duplex 54114. Exam performed portable in patient room. Interpretation Summary Mild (<50%) stenosis right extracranial internal carotid. No significant atherosclerotic plaque or stenosis noted in the left internal carotid artery. Flow within the vertebral arteries is antegrade bilaterally. Ordering Physician: María Barnes Referring Physician: Doris Navarro M.D. Performed By: Nancy Stevens RVT
--- NOTE | 2018-02-06 21:53 | ECHOD_ITS ---
Reason For Study: TIA/CVA Procedure This was a 2D Doppler, Color Flow transthoracic echocardiogram. The study was technically difficult. PT had difficulty lying still for exam. Exam performed portable in patient room. Left Ventricle Normal LV size. Left ventricular systolic function is normal. The estimated ejection fraction is 55 %. Transmitral diastolic flow velocities suggest mild (stage 1) diastolic dysfunction (reversed pattern). No regional wall motion abnormalities noted. Right Ventricle Normal RV size. Normal systolic function. Atria Normal left atrium. Normal right atrium. Mitral Valve Mitral valve not well visualized. Tricuspid Valve The tricuspid valve is not well visualized. Aortic Valve The aortic valve is not well visualized. Great Vessels Normal aortic root. The pulmonary artery is normal size. Normal inferior vena cava. Pericardium/Pleural No pericardial effusion. Medication Performed a rapid injection of agitated mix of 9 cc saline and 1cc air to assess for atrial septal defect x 2. MMode/2D Measurements & Calculations LVIDd: 4.9 cm IVSd: 1.1 cm LVOT diam: 2.0 cm LVIDs: 3.5 cm LVPWd: 1.3 cm LVOT area: 3.1 cm2 FS: 27.6 % Ao root diam: 3.4 cm LAV(MOD-bp): 44.7 ml LA A4 area: 17.2 cm2 LA dimension: 4.2 cm LAV(MOD-bp) Indexed: 23.4 ml/m2 LAV(MOD-sp2): 44.5 ml LAV(MOD-sp4): 40.3 ml RA A4 area: 14.0 cm2 Doppler Measurements & Calculations MV E max vamsi: 67.8 cm/sec Lat Peak E' Vamsi: 6.3 cm/sec Med Peak E' Vamsi: 5.6 cm/sec MV A max vamsi: 106.9 cm/sec E/E' lat: 10.7 E/E' med: 12.1 MV E/A: 0.63 Ao V2 max: 235.3 cm/sec LV V1 max: 124.6 cm/sec SV(LVOT): 79.3 ml Ao max P.2 mmHg LV V1 max P.2 mmHg Ao V2 mean: 148.4 cm/sec LV V1 mean P.0 mmHg Ao mean P.2 mmHg LV V1 mean: 81.0 cm/sec Ao V2 VTI: 43.7 cm LV V1 VTI: 25.3 cm OCTAVIO(I,D): 1.8 cm2 OCTAVIO(V,D): 1.7 cm2 PA V2 max: 109.6 cm/sec TR max vamsi: 229.8 cm/sec TR max P.2 mmHg Interpretation Summary Normal LV size. Left ventricular systolic function is normal. The estimated ejection fraction is 55 %. Transmitral diastolic flow velocities suggest mild (stage 1) diastolic dysfunction (reversed pattern). The study was technically difficult. Limited views were obtained. Ordering Physician: María Barnes Referring Physician: Doris Navarro Performed By: Sierra Martinez RDCS, RVT
[2018-02-06] MEDS: 0.9% NaCl Peripheral Flush Adult/Peds IV (23:14)
[2018-02-06] MEDS: 0.9% Normal Saline 1,000 ML 75 ML IV (23:14)
[2018-02-06] MEDS: Heparin Injection (Vial) 5,000 UNIT/ML VIAL 5000 UNIT SC (23:14)
[2018-02-06] MEDS: Losartan Potassium 50 MG Tablet PO (23:14)
[2018-02-06 23:20] LABS: Bedside Glucose 145 mg/dL (70-110)
[2018-02-07] VITALS (10 sets, daily range): BP systolic 129–155; BP diastolic 54–72; PULSE 60–75; RESP 12–18; TEMP 36.7–37.2; O2SAT 95–97
[2018-02-07] MEDS: ALPRAZolam 0.5 MG Tablet PO ×2 (01:26→08:23)
[2018-02-07] MEDS: Levothyroxine 100 MCG Tablet 200 MCG PO (05:23)
[2018-02-07] MEDS: Heparin Injection (Vial) 5,000 UNIT/ML VIAL 5000 UNIT SC (05:24)
[2018-02-07 06:17] LABS: Cholesterol 152 mg/dL (200); High Density Lipoprotein 44 mg/dL; Triglycerides 233 mg/dL; Very Low Density Lipoprotein 47 mg/dL (5-40)
[2018-02-07 06:51] LABS: Bedside Glucose 161 mg/dL (70-110)
[2018-02-07] MEDS: Insulin Lispro 100 UNIT/ML INSULN.PEN SC ×2 (08:23→11:46)
[2018-02-07] MEDS: amLODIPine 5 MG Tablet PO (08:23)
[2018-02-07] MEDS: Losartan Potassium 50 MG Tablet PO (08:23)
[2018-02-07] MEDS: Clopidogrel Bisulfate 75 MG Tablet PO (08:23)
[2018-02-07] MEDS: hydroCHLOROthiazide 25 MG Tablet PO (08:23)
[2018-02-07] MEDS: Citalopram 40 MG TABLET PO (08:23)
[2018-02-07] MEDS: Metoprolol(XL)Succ 100 MG Tablet PO (08:24)
[2018-02-07] MEDS: Pantoprazole Sodium 20 MG Tablet PO (08:24)
--- NOTE | 2018-02-07 10:45 | CASEMGMT ---
Per Speech therapy, pt should be scheduled for outpt barium swallow d/t hx old CVA. Order faxed to [facility] at this time and original to pt at this time with instruction, voices understanding. Pt states 'I don't know if I will do it but at least I have it if I want to. Advised pt that [facility] will call her, voices understanding. Mike ALBARRAN CM
[2018-02-07 13:51] LABS: Bedside Glucose 224 mg/dL (70-110)
[2018-02-07 16:17] LABS: Bedside Glucose 165 mg/dL (70-110)
--- NOTE | 2018-02-07 16:42 | DCINST_ITS ---
You will use the following diet at home:: No restrictions Your food should be the consistency of: Regular Your liquids should be the consistency of: Regular/Thin Discharge Activity: Return to Normal Activity Weight Bearing Status: Full weight bearing Allergies/Adverse Reactions: Allergies naproxen [From Naprosyn] Allergy (Verified 02/06/18 17:38) Hives Penicillins [PCN] Allergy (Verified 02/06/18 17:38) Hives guaifenesin [From Mucinex] Adverse Reaction (Verified 02/06/18 17:38) Unknown ketoprofen Adverse Reaction (Verified 02/06/18 17:38) Unknown loracarbef [From Lorabid] Adverse Reaction (Verified 02/06/18 17:38) Unknown bee sting Adverse Reaction (Uncoded 02/06/18 17:38) Unknown Medications to take at Discharge Alprazolam 0.05 mg PO BID PRN 08/09/13 Amlodipine Besylate 5 mg PO DAILY 08/09/13 Celecoxib [Celebrex] 100 mg PO DAILY 08/09/13 Citalopram Hydrobromide [Citalopram HBr] 40 mg PO DAILY 08/09/13 Clopidogrel Bisulfate [Clopidogrel] 75 mg PO DAILY 08/09/13 Hydrochlorothiazide 25 mg PO DAILY 08/09/13 Metformin HCl [Metformin HCl ER] 500 mg PO BREAKFAST 08/09/13 Metoprolol Tartrate [Lopressor (beta mert)] 100 mg PO DAILY 08/09/13 Omeprazole 20 mg PO DAILY 08/09/13 Rosuvastatin Calcium [Crestor] 5 mg PO DAILY 09/19/15 Losartan Potassium [Cozaar] 50 mg PO BID 10/22/16 Levothyroxine [Synthroid] 200 mcg PO DAILY 02/06/18 Primary Care Physician: Doris Navarro DO [Primary Care Provider] - Please follow up with your Primary Care Physician in: in 1-2 weeks Test Results: Test results from this visit will be discussed in further detail at your follow- up appointment, if applicable. Please Follow Up With: Rod Melendrez MD When: in 2-3 weeks [phone]
--- NOTE | 2018-02-07 17:10 | PCM.DC.SUM ---
Discharge Date and Diagnosis Date of Admission: 02/06/18 Date of Discharge: 02/07/18 - Primary Discharge Diagnosis #1 double vision-etiology unknown #2 cerebrovascular disease #3 hyperlipidemia #4 chronic kidney disease stage III secondary to type 2 diabetes #5 type 2 diabetes #6 hypertension - Secondary Discharge Diagnosis Chronic Problems CKD (chronic kidney disease) stage 3, GFR 30-59 ml/min (Chronic) Esophageal reflux (Chronic) History of pancreatitis (Chronic) History of abdominal pain (Chronic) Type 2 diabetes mellitus (Chronic) Obesity (Chronic) Hypothyroidism (Chronic) CVA (cerebral vascular accident) (Chronic) Hypertension (Chronic) Hospital Course and Treatment Imaging Results: 02/07/18 21:53 Brain without Contrast [MRI] Urgent Operations: None Procedures: 2-D Echocardiogram Summary of Care Provided: The patient is a 77 year old F who was seen in the emergency room at [facility] with chief complaint of double vision. She stated that the symptoms were intermittent. Patient has a past history of stroke. Workup in the emergency room included a CT of the brain which showed chronic changes, CBC chemistry and troponin are unremarkable. Patient was placed in observation status on PCU, echocardiogram was obtained which was unremarkable, MRI of the brain was obtained which showed no acute process only an old pontine stroke and a small old lacunar infarction. Patient was seen by neurology who ordered additional lab tests to rule out myasthenia gravis. On 02/07/18, patient was seen and examined felt to be in stable condition for discharge home. Patient's carotid duplex scan was pending at the time of this dictation Discharge Activity: Return to Normal Activity Weight Bearing Status: Full weight bearing Home Medications: Medications to take at Discharge Alprazolam 0.05 mg PO BID PRN 08/09/13 Amlodipine Besylate 5 mg PO DAILY 08/09/13 Celecoxib [Celebrex] 100 mg PO DAILY 08/09/13 Citalopram Hydrobromide [Citalopram HBr] 40 mg PO DAILY 08/09/13 Clopidogrel Bisulfate [Clopidogrel] 75 mg PO DAILY 08/09/13 Hydrochlorothiazide 25 mg PO DAILY 08/09/13 Metformin HCl [Metformin HCl ER] 500 mg PO BREAKFAST 08/09/13 Metoprolol Tartrate [Lopressor (beta mert)] 100 mg PO DAILY 08/09/13 Omeprazole 20 mg PO DAILY 01/12/14 Rosuvastatin Calcium [Crestor] 5 mg PO DAILY 09/19/15 Losartan Potassium [Cozaar] 50 mg PO BID 10/22/16 Levothyroxine [Synthroid] 200 mcg PO DAILY 02/06/18 Primary Care Physician: Doris Navarro DO [Primary Care Provider] - Please follow up with your Primary Care Physician in: in 1-2 weeks Please Follow Up With: Rod Melendrez MD When: in 2-3 weeks [phone] Disposition: Home Minutes spent on discharge:: 25 Patient Condition:: Stable Medical Necessity - Tobacco Use Smoking Status: Never smoker Meaningful Use Info Meaningful Use Diagnoses (Choose all that apply): None applicable Code Visit OBSV E&M: 09562 Observation care discharge
--- NOTE | 2018-02-07 17:15 | DS.PCM_ITS ---
Discharge Date and Diagnosis Date of Admission: 02/06/18 Date of Discharge: 02/07/18 - Primary Discharge Diagnosis #1 double vision-etiology unknown #2 cerebrovascular disease #3 hyperlipidemia #4 chronic kidney disease stage III secondary to type 2 diabetes #5 type 2 diabetes #6 hypertension - Secondary Discharge Diagnosis Chronic Problems CKD (chronic kidney disease) stage 3, GFR 30-59 ml/min (Chronic) Esophageal reflux (Chronic) History of pancreatitis (Chronic) History of abdominal pain (Chronic) Type 2 diabetes mellitus (Chronic) Obesity (Chronic) Hypothyroidism (Chronic) CVA (cerebral vascular accident) (Chronic) Hypertension (Chronic) Hospital Course and Treatment Imaging Results: 02/07/18 21:53 Brain without Contrast [MRI] Urgent Operations: None Procedures: 2-D Echocardiogram Summary of Care Provided: The patient is a 77 year old F who was seen in the emergency room at [facility] with chief complaint of double vision. She stated that the symptoms were intermittent. Patient has a past history of stroke. Workup in the emergency room included a CT of the brain which showed chronic changes, CBC chemistry and troponin are unremarkable. Patient was placed in observation status on PCU, echocardiogram was obtained which was unremarkable, MRI of the brain was obtained which showed no acute process only an old pontine stroke and a small old lacunar infarction. Patient was seen by neurology who ordered additional lab tests to rule out myasthenia gravis. On 02/07/18, patient was seen and examined felt to be in stable condition for discharge home. Patient's carotid duplex scan was pending at the time of this dictation Discharge Activity: Return to Normal Activity Weight Bearing Status: Full weight bearing Home Medications: Medications to take at Discharge Alprazolam 0.05 mg PO BID PRN 08/09/13 Amlodipine Besylate 5 mg PO DAILY 08/09/13 Celecoxib [Celebrex] 100 mg PO DAILY 08/09/13 Citalopram Hydrobromide [Citalopram HBr] 40 mg PO DAILY 08/09/13 Clopidogrel Bisulfate [Clopidogrel] 75 mg PO DAILY 08/09/13 Hydrochlorothiazide 25 mg PO DAILY 08/09/13 Metformin HCl [Metformin HCl ER] 500 mg PO BREAKFAST 08/09/13 Metoprolol Tartrate [Lopressor (beta mert)] 100 mg PO DAILY 08/09/13 Omeprazole 20 mg PO DAILY 01/12/14 Rosuvastatin Calcium [Crestor] 5 mg PO DAILY 09/19/15 Losartan Potassium [Cozaar] 50 mg PO BID 10/22/16 Levothyroxine [Synthroid] 200 mcg PO DAILY 02/06/18 Primary Care Physician: Doris Navarro DO [Primary Care Provider] - Please follow up with your Primary Care Physician in: in 1-2 weeks Please Follow Up With: Rod Melendrez MD When: in 2-3 weeks [phone] Disposition: Home Minutes spent on discharge:: 25 Patient Condition:: Stable Medical Necessity - Tobacco Use Smoking Status: Never smoker Meaningful Use Info Meaningful Use Diagnoses (Choose all that apply): None applicable Code Visit OBSV E&M: 75204 Observation care discharge
--- NOTE | 2018-02-07 21:53 | MRI_ITS ---
STUDY: MRI BRAIN WITHOUT CONTRAST REASON FOR EXAM: Female, 77 years old. CVA, blurry vision, DIPLOPIA. TECHNIQUE: Standardized multiplanar fat and water weighted pulse sequences were obtained. COMPARISON: May 22, 2012 FINDINGS: There is mild cerebral atrophy with widening of the extra-axial spaces and ventricular dilatation. There are multiple white matter hyperintensities, distributed throughout the deep white matter tracts of the cerebral hemispheres, consistent with moderate chronic white matter ischemic changes. Chronic left freed radiata lacunar infarct is noted. Normal bilateral basal ganglia. Normal thalami. There is no extra-axial fluid accumulation. Normal flow voids within the major intracranial circulation suggesting patency by spin echo criteria. Normal sella turcica, pituitary gland, infundibular stalk, optic chiasm and hypothalamus. Normal tectal plate and pineal gland. Chronic right pontine infarct is noted. Normal cerebellum. Normal basal cisterns. Normal bilateral temporal bones. Normal bilateral internal auditory canals. MRI/Brain without Contrast IMPRESSION: No acute intracranial abnormality. Chronic lacunar infarcts. Moderate chronic microvascular ischemic changes. Electronically Signed: Darby Franco MD at 10:40 EDT Tel , Service support ,
[2018-02-18 15:55] LABS: ACHR AB Modulating <12 % (0-20); ACHR Recep AB, Blocking 11 % (0-25)
== END 2018-02-07 16:41 | disposition home or self-care (01) ==
LOC: ED 18:43 → PCU 21:22
PROVIDERS: Psychiatry & Neurology Neurology; Admitting Provider Hospitalist; Emergency Provider Emergency Medicine; Family Provider Internal Medicine; PCP Internal Medicine; Visit Provider Internal Medicine
DX: H53.2 Diplopia (principal); E11.22 Type 2 diabetes mellitus with diabetic chronic kidney disease; I12.9 Hypertensive chronic kidney disease with stage 1 through stage 4 chronic kidney disease, or unspecified chronic kidney disease; N18.3 Chronic kidney disease, stage 3 (moderate); E78.5 Hyperlipidemia, unspecified; E66.9 Obesity, unspecified; Z68.36 Body mass index [BMI] 36.0-36.9, adult; Z71.3 Dietary counseling and surveillance; E03.9 Hypothyroidism, unspecified; Z79.899 Other long term (current) drug therapy; Z79.84 Long term (current) use of oral hypoglycemic drugs; Z79.02 Long term (current) use of antithrombotics/antiplatelets; K21.9 Gastro-esophageal reflux disease without esophagitis; H53.8 Other visual disturbances
CPT/HCPCS: 36415; 70450; 70551; 71045; 80048; 80061; 82962; 83519; 84484; 85025; 85610; 85730; 93005; 93306; 93880; 96361; 96372; 96374; 97802; 99218; 99283; J7030; A4216; G0378; J2405

== ENCOUNTER → 2018-02-10 08:34 | Outpatient (CLI) | payer MEDICARE, SELFPAY ==
[2018-02-10 10:12] LABS: AST(SGOT) 43 U/L (15-37); Alanine Aminotransfer ALT/SGPT 48 U/L (13-56); Albumin, Serum 3.7 g/dL (3.2-5.0); Alkaline Phosphatase 93 U/L (45-117); Bilirubin, Direct 0.17 mg/dL (0.00-0.30); Ferritin 236 ng/mL (8-252); Free T3 1.6 pg/mL (2.18-3.98); GGTP 64 U/L (5-55); Globulin 3.5 g/dL (2.2-4.2); Protein, Total 7.2 g/dL (6.4-8.2); T4 Free Direct 1.06 ng/dL (0.76-1.46)
[2018-02-11 22:08] LABS: HEPATITIS B SURFACE AG Negative (Negative); Hepatitis A IgM Antibody Negative (Negative); Hepatitis B Core AB IgM Negative (Negative)
[2018-02-12 11:13] LABS: ANTINUCLEAR ANTIBODIES DIRECT Negative (Negative); Anti-Mitochondrial AB <20.0 Units (0.0-20.0); Anti-Smooth Muscle ABS 2 Units (0-19); CMV Acute Antibody IgM < 30.0 AU/mL (0.0-29.9); Hep C Antibodies <0.1 s/co ratio (0.0-0.9); Transferrin 250 mg/dL (200-370)
== END ==
PROVIDERS: Family Provider Internal Medicine; PCP Internal Medicine; Visit Provider Internal Medicine
DX: R74.8 Abnormal levels of other serum enzymes (principal); R94.6 Abnormal results of thyroid function studies; R53.83 Other fatigue
CPT/HCPCS: 36415; 80074; 80076; 82390; 82728; 82977; 83516; 84439; 84443; 84466; 84481; 86038; 86645

== ENCOUNTER 2018-05-14 08:42 | Emergency (ER) | payer MEDICARE, SELFPAY ==
[2018-05-14 08:42] VITALS: BP 177/79; PULSE 74; RESP 16; TEMP 36.9; O2SAT 96; BMI 35.4
--- NOTE | 2018-05-14 08:57 | RAD_ITS ---
STUDY: X-RAY - LEFT SHOULDER REASON FOR EXAM: Female, 78 years old. Pain following a fall. TECHNIQUE: 5 view(s) of the shoulder. COMPARISON: None. FINDINGS: There is mild degenerative arthrosis of the glenohumeral articulation. There is degenerative arthrosis of the acromioclavicular joint without inferior osseous spur formation. Normal acromion. Normal humeral head and visualized proximal humerus. The soft tissue structures are unremarkable. Nondisplaced left rib fracture along the anterolateral aspect. RAD/Shoulder min 2 Views IMPRESSION: Degenerative changes. Nondisplaced fracture of the left fifth rib anterolaterally. Electronically Signed: Teo Garrido MD at 11:02 EDT Tel [phone], Service support ,
--- NOTE | 2018-05-14 08:57 | RAD_ITS ---
STUDY: X-RAY - LEFT ELBOW REASON FOR EXAM: Female, 78 years old. Pain following a fall. TECHNIQUE: 3 view(s) of the elbow. COMPARISON: None. FINDINGS: Normal visualized humerus, radius and ulna. Normal radiocapitellar and ulnotrochlear articulations. The soft tissue structures are unremarkable. RAD/Elbow min 3 Views IMPRESSION: Normal x-ray examination of the elbow. Electronically Signed: Teo Garrido MD at 10:12 EDT Tel [phone], Service support ,
--- NOTE | 2018-05-14 09:09 | ED.DCSUM_ITS ---
- ER Visit Summary Date of Service: 05/14/18 Chief Complaint: [] Tripped at home fell left shoulder left upper chest pain History of Present Illness: The patient is a 78 F [] history of hypertension diabetes stable she ended up tripping 3 AM on an object she injured her left shoulder and left upper chest she had no headache or head trauma no neck pain no other chest pain no paresthesias she came in because of persistent pain she has no other complaints and her general health condition has been very stable Physical Examination: [] She indicates her chief complaint is left shoulder pain she is holding the shoulder close to her body her vital signs are within normal range she is in no distress HEENT exam is unremarkable the neck is nontender the lungs are clear the heart tones are normal abdomen soft nontender upper lower extremities unremarkable except the left shoulder. She has a pain to the left shoulder that cause her decreased range of motion is noticeably deformity her arm elbow wrist hand unremarkable left hand function normal the C-spine T- spine lumbar spine are not tender she has a vague pain to the region of her left breast the breast itself is not tender seems to be bony pain around the left breast area but there is no crepitance or subcu air neurologically she is awake alert moving all 4 no cranial nerve motor or sensory abnormalities her NIH is 0 she assures me she just fell on her left shoulder Test Results: [] Emergency Department Course and Treatment: [] X-ray morphine for pain, chest x- ray left shoulder left elbow x-rays are obtained, these x-rays 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, no fractures in the extremities, there is notation on chest x-ray of nothing acute, however a left shoulder x-ray there is a mention of a nondisplaced left anterior lateral rib fracture, she also had healed fracture rib fracture on the right, discussed all this about to the patient discussed the concept of the occult injury rotator cuff except for the rib fracture, she is comfortable discharge home on a sling, she will follow with her family doctors she is referred to [facility] for the shoulder injury and she will return for change in symptoms and she is comfortable with this plan Treatment Plan: [] Disposition: [] Stable home Impression: [] Fall left rib fracture, left shoulder injury This note was generated with [employer] software. It may contain incorrect words, spelling, and punctuation that were not noted in review of the chart prior to signing ED Disposition - Plan for ED Patient: Chief Complaint: Fall Referrals: Doris Navarro DO [Primary Care Provider] -
[2018-05-14] MEDS: morphine 10 MG/ML Syringe 4 MG SC (09:12)
[2018-05-14] MEDS: Ondansetron 8 MG Tablet PO (09:12)
--- NOTE | 2018-05-14 09:40 | RAD_ITS ---
STUDY: X-RAY CHEST REASON FOR EXAM: Female, 78 years old. Left-sided rib pain following a fall. TECHNIQUE: PA and lateral views of the chest. COMPARISON: Comparison is made with prior study dated February 06, 2018. FINDINGS: Stable elevation of the right hemidiaphragm. The lungs are clear and expanded. There is no demonstrated pleural abnormality. There is mild cardiac enlargement. Normal mediastinum and pete. Normal visualized pulmonary arteries. There is atherosclerotic calcification of the aortic arch with tortuosity. There is demineralization of the osseous structures. Levoscoliosis. Healed right rib fractures. There is no demonstrated abnormality of the visualized soft tissue structures of the upper abdomen. RAD/Chest PA and Lateral IMPRESSION: Healed right rib fractures. No acute abnormality is seen. Electronically Signed: Teo Garrido MD at 10:11 EDT Tel [phone], Service support ,
--- NOTE | 2018-05-14 11:33 | ED.DEP ---
ED Disposition - Plan for ED Patient: Chief Complaint: Fall Instructions: ED Mechanical Fall, ED Fx Rib, ED Sprain Shoulder, ED Sling Prescriptions: Hydrocodone Bitart/Apap 5-325 [[place] 5MG-325MG] 1 tab PO Q6H PRN PRN 3 Days #10 tab PRN Reason: Pain Referrals: Doris Navarro DO [Primary Care Provider] -
[2018-05-14 12:08] VITALS: BP 149/70; PULSE 84; RESP 18; O2SAT 99
== END 2018-05-14 12:11 | disposition home or self-care (01) ==
LOC: ED 09:34
PROVIDERS: Emergency Provider Emergency Medicine; Family Provider Internal Medicine; PCP Internal Medicine
DX: S22.32XA Fracture of one rib, left side, initial encounter for closed fracture (principal); S49.92XA Unspecified injury of left shoulder and upper arm, initial encounter; W18.09XA Striking against other object with subsequent fall, initial encounter; Y93.9 Activity, unspecified; Y92.009 Unspecified place in unspecified non-institutional (private) residence as the place of occurrence of the external cause; I10 Essential (primary) hypertension; E11.9 Type 2 diabetes mellitus without complications; Z79.84 Long term (current) use of oral hypoglycemic drugs; Z79.899 Other long term (current) drug therapy
CPT/HCPCS: 71046; 73030; 73080; 96372; 99283

== ENCOUNTER → 2018-06-24 14:06 | Outpatient (CLI) | payer MEDICARE, SELFPAY ==
--- NOTE | 2018-06-24 14:13 | RAD_ITS ---
STUDY: X-RAY - LUMBAR SPINE REASON FOR EXAM: Female, 78 years old. Back pain. TECHNIQUE: 5 view(s) of the lumbar spine were obtained. COMPARISON: 5 views of the lumbar spine February 08, 2015. FINDINGS: Normal lumbar lordosis. There is a 10 degree dextroscoliosis of the lumbar spine centered at L3-4. There is a normal alignment of the vertebrae. There is stable mild multilevel endplate spondylosis of the lumbar vertebrae. Stable moderately severe intervertebral disc height narrowing at L4-5. Mild to moderate narrowing at L3-4 and slight narrowing at L2-3 are mildly worsened from prior study. There is no demonstrated fracture. There is stable degenerative arthropathies of the lower lumbar facet joints. The soft tissue structures are unremarkable. RAD/L/S Spine Min 4 Views IMPRESSION: Degenerative changes of the spine, as detailed above, with slight increased disc height narrowing at L2-3 and L3-4 as well as mild increased dextroscoliosis since 2014. Electronically Signed: Leopoldo Soni MD at 14:13 EST , Service support ,
--- OUTSIDE RECORDS SUMMARY | 2018-08-20 03:56 | XMS RPT_ITS | Continuity of Care Document ---
:1940 Author Organization [facility] Address [address] [place] [address] Phone Care Team Providers Name Role Phone Doris Navarro DO Unavailable Camacho Serrano Unavailable Flakito Morales Unavailable [facility], [facility] Unavailable Marcello Stein Unavailable Sal Urrutia Unavailable Maggie Tracey DO Unavailable Liza Duron Unavailable CARYN Khan Unavailable Unavailable Thelma Sofia Unavailable Unavailable Long Patsy RUBIN Unavailable Unavailable Marcia Britton Unavailable Unavailable GAURAV Hinojosa Unavailable Unavailable Unavailable Unavailable Problems Name Dates Details Abnormal lung sounds (R09.89, 786.7) Status: Active Abnormal lung sounds (R09.89, 786.7) Comments: improved compared to yesterday Status: Active Abnormal TSH (R79.89, 790.6) Status: Active Acquired hypothyroidism (E03.9, 244.9) Status: Active Actinic keratosis (Renamed from Actinic keratoses) (L57.0, 702.0) Status: Active Anemia due to vitamin B12 deficiency, unspecified B12 deficiency type (D51.9, 281.1) Status: Active Anemia, unspecified (D64.9, 285.9) Status: Active Annual Medicare Phyiscal WITHOUT abnormal findings (Renamed from Encounter for general adult medical examination without abnormal findings) (Z00.00, V70.9) Status: Active Aortic stenosis, mild (I35.0, 424.1) Comments: last echo 12/2015 Status: Active Arthritis (M19.90, 716.90) Status: Active Arthritis (M19.90, 716.90) Status: Active Benign essential hypertension (Renamed from Benign essential HTN) (I10, 401.1) Status: Active Bilateral carotid artery stenosis (I65.23, 433.10) Comments: goes to the medical center yearly to follow Status: Active BMI 34.0-34.9,adult (Z68.34, V85.34) Status: Active BMI 36.0-36.9,adult (Z68.36, V85.36) Status: Active BMI 36.0-36.9,adult (Z68.36, V85.36) Status: Active Body mass index 36.0-36.9, adult (Z68.36, V85.36) Status: Active Bronchitis (J40, 490) Status: Active Bronchitis (J40, 490) Status: Active Bronchitis (J40, 490) Status: Active Carpal tunnel syndrome, unspecified laterality (G56.00, 354.0) Comments: watch salt cock up splint Status: Active Cerebral infarction, unspecified (I63.9, 434.91) Status: Active Chronic cough (R05, 786.2) -Mar-2010 Comments: believe she gets this every time go off prednisone- has tried inhalers in past and she unable to use properly- do think she has component of asthma/copd Status: Active Chronic fatigue (R53.82, 780.79) Comments: multifactorial -- uncontrolled sugars, low sugar spells from not eating ands fatigue is at same time qd with fasting- pain-, also pending dx with marlyn cárdenas in urine found in rev of chart--- pt not depressed Status: Active Chronic fatigue (R53.82, 780.79) Status: Active Condition of brain (G93.9, 348.9) Status: Active Conjunctivitis, left eye (H10.9, 372.30) Status: Active Cough (R05, 786.2) Status: Active Deliveries (Parity) Comments: 2 Status: Active Dementia (F03.90, 294.20) Status: Active Depressed mood (F32.9, 311) Comments: pt declined referral to counselor Status: Active Depression, unspecified depression type (F32.9, 311) Comments: pt refused psych consult for oopinion on medication bc alread y on max dose celexa and buspar -- she want to do dietay chg and exercise first to see if helps Status: Active Diabetes mellitus type 2, controlled (E11.9, 250.00) Status: Active Double vision (H53.2, 368.2) Status: Active Edema (Renamed from Accumulation of fluid in tissues) (R60.9, 782.3) Comments: wear support stockings , drink more water, wt lossall over and having cold symtoms and sob and concerned with lungs and heart and has h/o cva and chronic cough Status: Active Elevated liver enzymes (R74.8, 790.5) Comments: prob related to fatty liver -- did nutrition mortgage loan counselor and wt loss / metformin and eliminate sugar Status: Active Encounter for annual general medical examination with abnormal findings in adult (Z00.01, V70.0) Status: Active Encounter for screening for malignant neoplasm of colon (Renamed from Special screening for malignant neoplasms, colon) (Z12.11, V76.51) Comments: she did cologard 2016-negartive Status: Active Encounter for screening mammogram for breast cancer (Renamed from Encounter for screening mammogram for malignant neoplasm of breast) (Z12.31, V76.12) Status: Active Encounter for screening mammogram for breast cancer (Renamed from Encounter for screening mammogram for malignant neoplasm of breast) (Z12.31, V76.12) Comments: pt refuses to do Status: Active Exhaustion (R53.83, 780.79) Comments: lab orders are in chart-- eleanor? pt states doesnt snore-- depression ? anx and sstress? ekg in jul in ER ok no cp /for other w/u in cv [facility], meds rev and on toprol but has been on it forever so i dont think its the primary culprit Status: Active Fatty liver (K76.0, 571.8) Status: Active Gastric reflux (K21.9, 530.81) Comments: chronic stable-continue present regimen Status: Active GENERAL SYMPTOMS; UNSPECIFIED SLEEP DISTURBANCE (780.50) Status: Active HEART DISEASE, NOS (429.9) Status: Active Heart murmur (Renamed from Cardiac murmur) (R01.1, 785.2) Status: Active History of poliomyelitis (Renamed from H/O acute poliomyelitis) (Z86.12, V12.02) Comments: ? 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, is lipitor contributory as recently increased so will cut in half and monitor Status: Active Hyperglycemia (R73.9, 790.29) Status: Active HYPERTENSION, NOS (401.9) Status: Active Impaired gait and mobility (R26.89, 781.2) Comments: Painful gait-left leg Status: Active Impingement syndrome of shoulder region, unspecified laterality (M75.40, 726.2) Status: Active Insomnia, controlled (G47.00, 780.52) Comments: wean off benzo 1/2 tab qhs for one week then 1/4 tab qhs for 2wwrk Status: Active Iron (Fe) deficiency anemia (D50.9, 280.9) Status: Active Low back pain potentially associated with radiculopathy (M54.5, 724.2) Status: Active Medication side effect (T88.7XXA, 995.20) Status: Active 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, 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) Status: Active Mixed hyperlipidemia (E78.2, 272.2) Status: Active Nausea (R11.0, 787.02) Status: Active Need for prophylactic vaccination and inoculation against influenza (Z23, V04.81) Status: Active Neoplasm of uncertain behavior of skin (D48.5, 238.2) Status: Active Nonsmoker (Z78.9, V49.89) Status: Active Nutritional counseling (Z71.3, V65.3) Status: Active Nutritional counseling (Z71.3, V65.3) Status: Active Osteoarthritis (M19.90, 715.90) Status: Active Osteopenia (M85.80, 733.90) Status: Active Other and unspecified hyperlipidemia (E78.5, 272.4) Status: Active Other anxiety states (F41.1, 300.09) Status: Active 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 has multiple complaints similar to Post polio syndrome neuromuscular complaints, fatigue pain Status: Active Pregnancies () Comments: 2 Status: Active Screening for malignant neoplasm of cervix (Z12.4, V76.2) Status: Active Sinusitis, bacterial (J32.9, 473.9) Status: Active Sore throat (J02.9, 462) Status: Active Stress incontinence, female (N39.3, 625.6) Status: Active Therapeutic drug monitoring (Z51.81, V58.83) Status: Active Thyromegaly (E04.9, 240.9) Status: Active Trauma of soft tissue of neck, initial encounter (S19.80XA, 874.8) Status: Active Uncontrolled type II diabetes mellitus (E11.65, 250.02) Status: Active Urinary frequency (R35.0, 788.41) Status: Active UTI (urinary tract infection) (N39.0, 599.0) Status: Active Vitamin B 12 deficiency (E53.8, 266.2) Status: Active Vitamin D deficiency, unspecified (E55.9, 268.9) Status: Active Medications Name Dates Details AmLODIPine Besylate 5 MG Oral Tablet 1 (one) Tablet daily for 30 days Quantity: 30 {Tablet} Refills: 3 Ordered:12-May-2018 Arnold Navarro DO, DO, KathleenFearon DO, Kathleen Start : 12-May-2018 Active BusPIRone HCl 10 MG Oral Tablet 1 (one) Tablet bid for 30 days Quantity: 60 {Tablet} Refills: 3 Ordered:13-May-2018 Arnold Navarro DO, DO, KathleenFearon DO, Kathleen Start : 13-May-2018 Active Comments:myalgia Citalopram Hydrobromide 40 MG Oral Tablet 1 Tablet qd for 30 days Quantity: 30 {Tablet} Refills: 3 Ordered:12-May-2018 Arnold Navarro DO, DO, KathleenFearon DO, Kathleen Start : 12-May-2018 Active Crestor 5 MG Oral Tablet 1 (one) Tablet qd for 0 days Quantity: 30 {Tablet} Refills: 3 Ordered:29-May-2018 Arnold Navarro DO, DO, KathleenFearon DO, Kathleen Start : 29-May-2018 Active Cytomel 5 MCG Oral Tablet 1/2 Tablet daily for 30 days Quantity: 15 {Tablet} Refills: 3 Ordered:07-Apr-2018 Patsy Leslie LPN Start : 07-Apr-2018 Active Doxycycline Hyclate 100 MG Oral Capsule 1 (one) Capsule bid for 0 days Quantity: 20 {Capsule} Refills: 0 Ordered:14-Apr-2018 Thelma Sofia Start : 14-Apr-2018 Active HydroCHLOROthiazide 25 MG Oral Tablet 1 (one) Tablet qd for 0 days Quantity: 30 {Tablet} Refills: 3 Ordered:12-May-2018 Arnold Navarro DO, DO, Doris Barrett DO Start : 12-May-2018 Active Losartan Potassium 50 MG Oral Tablet 2 (two) Tablet qd for 0 days Quantity: 60 {Tablet} Refills: 3 Ordered:14-Apr-2018 Arnold Navarro DO, DO, KathleenFearon DO, Kathleen Start : 14-Apr-2018 Active MetFORMIN HCl ER 500 MG Oral Tablet Extended Release 24 Hour 2 (two) Tablet ER 24HR bid for 30 days Quantity: 120 {Tablet} Refills: 3 Ordered:12-Dec-2017 Arnold Navarro DO, DO, KathleenFearon DO, Kathleen Start : 12-Dec-2017 Active Omeprazole 20 MG Oral Capsule Delayed Release 1 (one) Capsule DR daily for 30 days Quantity: 30 {Capsule} Refills: 3 Ordered:12-May-2018 Arnold Navarro DO, DO, KathleenFearon DO, Kathleen Start : 12-May-2018 Active Plavix 75 MG Oral Tablet 1 (one) Tablet daily for 0 days Quantity: 30 {Tablet} Refills: 3 Ordered:24-Jun-2018 Arnold Navarro DO, DO, KathleenFearon DO, Kathleen Start : 24-Jun-2018 Active PredniSONE 10 MG Oral Tablet 1 Tablet TAD for 0 days Quantity: 18 {Tablet} Refills: 0 Ordered:14-Apr-2018 BismarkThelma Start : 14-Apr-2018 Active Comments:3 pills for 3 days 2 pills for 3 days 1 pill for 3 days Take with food in AM ProAir HFA 108 (90 Base) MCG/ACT Inhalation Aerosol Solution 2 (two) Puff Puff tid for 0 days Quantity: 1 {Inhaler} Refills: 0 Ordered:20-Jul-2016 Arnold Navarro DO, DO, KathleenFearon DO, Kathleen Start : 20-Jul-2016 Active Synthroid 200 MCG Oral Tablet 1 (one) Tablet daily 6 days a week for 30 days Quantity: 30 {Tablet} Refills: 3 Ordered:07-Apr-2018 Patsy Leslie LPN Start : 07-Apr-2018 Active Comments:MAY [employer] GENERIC-- Toprol XL 100 MG Oral Tablet Extended Release 24 Hour 1 Tablet ER 24HR QD for 0 days Quantity: 30 {Tablet} Refills: 3 Ordered:16-Apr-2018 Arnold Navarro DO, DO, KathleenFearon DO, Kathleen Start : 16-Apr-2018 Active TraZODone HCl 100 MG Oral Tablet 1-1/2 Tablet qhs for 0 days Quantity: 80 {Tablet} Refills: 3 Ordered:12-Dec-2017 Arnold Navarro DO, DO, KathleenFearon DO, Kathleen Start : 12-Dec-2017 Active Albuterol Sulfate (2.5 MG/3ML) 0.083% Inhalation Nebulization Solution 1 (one) Nebulized Soln Nebulized Soln q 6hrs, prn for 30 days Quantity: 120 {Nebule} Refills: 3 Ordered:08-Aug-2017 GAURAV Hinojosa Start : 20-Jul-2016 End : 08-Aug-2017 Inactive ALPRAZolam 0.5 MG Oral Tablet 1/2 to 1 Tablet qd, prn for 60 days Quantity: 30 {Tablet} Refills: 0 Ordered:17-Feb-2018 Arnold Navarro DO, DO, KathleenFearon DO, Kathleen Start : 17-Feb-2018 End : 18-Apr-2018 Inactive Comments:oarrs revieweddx ASMANEX 120 METERED DOSES, 220MCG/INH (Inhalation Aerosol Powder Breath Activated) 2 (two) Aero Pow Br Act qd for 0 days Refills: 0 Ordered:09-Sep-2009 Raiza Ortiz Start : 27-Dec-2008 Inactive Comments:rinse mouth after use ASPIRIN CHILDRENS, 81MG (Oral Tablet Chewable) 1 (one) Tablet Chewable qd for 0 days Refills: 0 Ordered:22-Aug-2012 Lashonda Lee LPN Start : 14-Jun-2009 End : 22-Aug-2012 Inactive Bactrim DS 800-160 MG Oral Tablet 1 (one) Tablet Tablet bid for 0 days Quantity: 20 {Tablet} Refills: 0 Ordered:09-Apr-2016 Arnold Navarro DO, DO, KathleenFearon DO, Kathleen Start : 09-Mar-2016 End : 09-Apr-2016 Inactive BENICAR, 40MG (Oral Tablet) 1 (one) Tablet qd for 0 days Quantity: 30 {Tablet} Refills: 3 Ordered:19-Apr-2010 Raiza Ortiz Start : 12-Apr-2010 Inactive Biaxin 500 MG Oral Tablet 1 Tablet Twice daily for 0 days Quantity: 20 {Tablet} Refills: 0 Ordered:20-Sep-2016 Thelma Khan LPN Start : 16-Aug-2016 End : 20-Sep-2016 Inactive BIAXIN XL PAC, 500MG (Oral Tablet Extended Release 24 Hour) 2 (two) Tablet ER 24HR daily for 10 days Quantity: 20 {Tablet_ER_24HR} Refills: 0 Ordered:08-Nov-2009 Evert LOVE Briana Start : 19-Oct-2009 End : 29-Oct-2009 Inactive Budesonide 0.25 MG/2ML Inhalation Suspension 1 (one) Suspension Suspension bid for 0 days Quantity: 60 {Vial} Refills: 3 Ordered:01-Aug-2017 Thelma Khan LPN Start : 09-Sep-2015 End : 01-Aug-2017 Inactive BUPROPION HCL ER (XL), 150MG (Oral Tablet Extended Release 24 Hour) 1 Tablet ER 24HR q am for 0 days Quantity: 30 {Tablet_ER_24HR} Refills: 4 Ordered:22-Aug-2012 Lashonda Lee LPN Start : 30-Jul-2012 End : 22-Aug-2012 Inactive CELEBREX, 100MG (Oral Capsule) 1 cap Capsule qd for 0 days Quantity: 30 {Capsule} Refills: 3 Ordered:22-Aug-2012 Lashonda Lee LPN Start : 25-Mar-2012 End : 22-Aug-2012 Inactive Comments:with food CELEBREX, 200MG (Oral Capsule) 1 Capsule bid for 0 days Refills: 0 Ordered:19-Apr-2008 Thelma Khan LPN Start : 09-Dec-2007 End : 19-Apr-2008 Inactive Ciprofloxacin HCl 0.3 % Ophthalmic Solution 2 (two) drops drops uad for 0 days Quantity: 1 {Bottle} Refills: 0 Ordered:28-Oct-2017 Thelma Sofia Start : 02-Aug-2017 End : 28-Oct-2017 Inactive Comments:2 drops left eye q 1 while awake x 24 hrs then 2 drops q2hrs x 24 hrs2 drops q 4hrs x 3 days CLARINEX, 5MG (Oral Tablet) 1 (one) Tablet Daily for 5 days Refills: 0 Ordered:12-Apr-2010 Maggie Tracey DO Start : 12-Apr-2010 End : 17-Apr-2010 Inactive DETROL LA, 2MG (Oral Capsule Extended Release 24 Hour) 1 (one) Capsule ER 24HR Daily for 0 days Refills: 0 Ordered:17-Mar-2008 Thelma Khan LPN Start : 17-Mar-2008 End : 20-Oct-2008 Inactive Diprolene AF 0.05 % External Cream apply to affected area Cream bid - use sparingly for 0 days Quantity: 15 {Gram} Refills: 0 Ordered:09-Apr-2016 Arnold Navarro DO, DO, KathleenFearon DO, Kathleen Start : 22-Mar-2016 End : 09-Apr-2016 Inactive Etodolac ER 400 MG Oral Tablet Extended Release 24 Hour 2 (two) Tablet ER 24HR qd for 0 days Quantity: 60 {Tablet} Refills: 0 Ordered:26-Sep-2016 Thelma Khan LPN Start : 24-Sep-2016 End : 26-Sep-2016 Inactive FISH OIL CONCENTRATE, 1000MG (Oral Capsule) 1 caps qd (1000 MG) Inactive HYCODAN, 5-1.5MG/5ML (Oral Syrup) 1-2 Syrup QHS / HS for 0 days Quantity: 60 {Syrup} Refills: 0 Ordered:02-Sep-2008 Thelma Khan LPN Start : 02-Sep-2008 End : 20-Oct-2008 Inactive LEVAQUIN, 500MG (Oral Tablet) 1 Tablet qd for 0 days Quantity: 10 {Tablet} Refills: 0 Ordered:10-Mar-2009 GAURAV Hinojosa Start : 10-Mar-2009 End : 28-Jun-2009 Inactive LEXAPRO, 10MG (Oral Tablet) 1 QD for 0 days Refills: 0 Ordered:30-Jul-2007 Thelma Khan LPN End : 30-Jul-2007 Inactive LIPITOR, 10MG (Oral Tablet) 1 (one) Tablet Daily for 0 days Quantity: 90 {Tablet} Refills: 3 Ordered:16-Dec-2007 Thelma Khan LPN Start : 16-Dec-2007 End : 20-Oct-2008 Inactive Lisinopril 5 MG Oral Tablet 1 (one) Tablet daily for 30 days Quantity: 30 {Tablet} Refills: 3 Ordered:28-Mar-2016 Lydia Pascual Start : 23-Feb-2016 End : 28-Mar-2016 Inactive L-Methylfolate 15 MG Oral Tablet 1 (one) Tablet daily for 30 days Quantity: 30 {Tablet} Refills: 3 Ordered:01-Aug-2017 Thelma Khan LPN Start : 10-Aug-2014 End : 01-Aug-2017 Inactive LORATADINE, 10MG (Oral Tablet) 1 (one) Tablet Daily for 0 days Refills: 0 Ordered:20-Nov-2007 Thelma Khan LPN Start : 20-Nov-2007 End : 20-Oct-2008 Inactive LOVAZA, 1GM (Oral Capsule) 4 Capsule Daily for 0 days Quantity: 360 {Capsule} Refills: 3 Ordered:17-Mar-2008 Thelma Khan LPN Start : 08-Sep-2007 End : 17-Mar-2008 Inactive Macrobid 100 MG Oral Capsule 1 (one) Capsule bid for 3 days Quantity: 6 {Capsule} Refills: 0 Ordered:21-Oct-2017 Kimberley Loyd CNP Start : 21-Oct-2017 End : 24-Oct-2017 Inactive Naproxen 500 MG Oral Tablet 1 (one) Tablet Tablet bid for 0 days Quantity: 60 {Tablet} Refills: 1 Ordered:12-Dec-2017 GAURAV Hinojosa Start : 26-Sep-2016 End : 12-Dec-2017 Inactive [place] 5-325 MG Oral Tablet 1 q 4hrs prn (5-325 MG) Inactive OMNARIS, 50MCG/ACT (Nasal Suspension) 1-2 Suspension Daily for 0 days Quantity: 1 {Suspension} Refills: 0 Ordered:20-Oct-2008 Raiza Ortiz Start : 20-Oct-2008 End : 08-Nov-2008 Inactive PredniSONE 20 MG Oral Tablet 1 (one) Tablet Tablet bid for 2days then qd for 4days for 0 days Quantity: 8 {Tablet} Refills: 0 Ordered:20-Sep-2016 Thelma Khan LPN Start : 20-Jul-2016 End : 20-Sep-2016 Inactive PREVACID, 30MG (Oral Capsule Delayed Release) 1 (one) Capsule DR Daily for 0 days Refills: 0 Ordered:17-Mar-2008 Raiza Ortiz Start : 17-Mar-2008 End : 08-Nov-2008 Inactive PRILOSEC OTC, 20MG (Oral Tablet Delayed Release) [address] QD for 0 days Quantity: 30 {Tablet_DR} Refills: 3 Ordered:09-Dec-2007 Thelma Khan LPN Start : 09-Dec-2007 End : 17-Mar-2008 Inactive PROMETHAZINE HCL, 25MG (Oral Tablet) 1 (one) Tablet q4-6 hrs prn nausea for 0 days Quantity: 30 {Tablet} Refills: 0 Ordered:12-Apr-2010 Apoorva Calle Start : 18-Jan-2010 Inactive PROVENTIL HFA, 108 (90 Base)MCG/ACT (Inhalation Aerosol Solution) 2 (two) Aerosol Soln TID for 0 days Quantity: 1 {Aerosol_Soln} Refills: 0 Ordered:02-Sep-2008 Thelma Khan LPN Start : 02-Sep-2008 End : 20-Oct-2008 Inactive RANITIDINE HCL, 150MG (Oral Tablet) 1 tab Tablet bid for 0 days Refills: 0 Ordered:09-Sep-2009 Mellissa Ortizctive SIMVASTATIN, 10MG (Oral Tablet) one qd for 0 days Refills: 0 Ordered:08-Nov-2008 Raiza Ortiz End : 08-Nov-2008 Inactive SKELAXIN, 800MG (Oral Tablet) 1 (one) Tablet TID for 0 days Refills: 0 Ordered:11-Mar-2007 Thelma Khan LPN Start : 11-Mar-2007 End : 30-Jul-2007 Inactive TESSALON, 200MG (Oral Capsule) 1 (one) Capsule TID for 0 days Quantity: 30 {Capsule} Refills: 0 Ordered:02-Sep-2008 Thelma Khan LPN Start : 02-Sep-2008 End : 20-Oct-2008 Inactive TOPICORT, 0.25% (External Cream) 1 Cream bid for 0 days Quantity: 1 {Cream} Refills: 0 Ordered:23-Jun-2007 Thelma Khan LPN Start : 23-Jun-2007 End : 30-Jul-2007 Inactive ULTRAVATE, 0.05% (External Ointment) 1 (one) Ointment q am for 0 days Quantity: 30 {Ointment} Refills: 0 Ordered:09-Sep-2009 Raiza Ortiz Start : 29-Mar-2009 Inactive Comments:sparingly VITAMIN D3, 5000UNIT (Oral Capsule) 1 cap daily (5000 UNIT) Inactive Wellbutrin XL 300 MG Oral Tablet Extended Release 24 Hour 1 (one) Tablet qd for 0 days Quantity: 30 {Tablet} Refills: 4 Ordered:21-Nov-2017 Arnold Navarro DO, DO, KathleenFearon DO, Kathleen Start : 21-Nov-2017 End : 21-Nov-2017 Inactive Zithromax Z-Jeff 250 MG Oral Tablet 2 (two) Tablet day 1 then 2 qd for 4 days for 0 days Quantity: 1 {Pouch} Refills: 0 Ordered:07-Aug-2017 Thelma Khan LPN Start : 02-Aug-2017 End : 07-Aug-2017 Inactive Zofran 4 MG Oral Tablet 1 (one) Tablet q 8hrs prn for 0 days Quantity: 20 {Tablet} Refills: 0 Ordered:20-Sep-2016 Thelma Khan LPN Start : 24-Aug-2016 End : 20-Sep-2016 Inactive Albuterol Sulfate (2.5 MG/3ML) 0.083% Inhalation Nebulization Solution 1 (one) Milliliter Milliliter x1 for 0 days Quantity: 1 {Nebule} Refills: 0 Ordered:12-Dec-2017 Marcia Britton Start : 01-Aug-2017 End : 12-Dec-2017 Discontinued Comments:in office ATIVAN, 0.5MG (Oral Tablet) 1 (one) Tablet qd for 0 days Quantity: 20 {Tablet} Refills: 0 Ordered:19-Aug-2015 Raiza Ortiz Start : 03-Sep-2012 End : 19-Aug-2015 Discontinued Comments:TWENTY JOYCE, 5-40MG (Oral Tablet) 1 Tablet qd for 0 days Quantity: 120 {Tablet} Refills: 0 Ordered:11-Sep-2012 Fast Maggie Armstrong Start : 11-Sep-2012 End : 11-Sep-2012 Discontinued Benzonatate 200 MG Oral Capsule 1 (one) Capsule Capsule tid prn cough for 0 days Quantity: 30 {Capsule} Refills: 0 Ordered:28-Oct-2017 Marcia Britton Start : 07-Aug-2017 End : 28-Oct-2017 Discontinued CeleBREX 100 MG Oral Capsule 1 (one) Capsule qd for 30 days Quantity: 30 {Capsule} Refills: 4 Ordered:13-Feb-2018 Arnold Navarro DO, DO, Doris Barrett DO Start : 13-Feb-2018 End : 13-Feb-2018 Discontinued Comments:no c hronic nsaid use and now on plavix for cva prevention too CRESTOR, 20MG (Oral Tablet) 1/2 Tablet daily for 30 days Quantity: 30 {Tablet} Refills: 3 Ordered:19-May-2015 Lashonda Lee LPN Start : 10-Aug-2014 End : 19-May-2015 Discontinued CYANOCOBALAMIN, 1000MCG/ML (Injection Solution) 1 (one) Solution Solution monthly for 0 days Quantity: 1 {Each} Refills: 0 Ordered:19-Aug-2015 Raiza Ortiz Start : 20-May-2015 End : 19-Aug-2015 Discontinued Comments:in office injections DELSYM, 30MG/5ML (Oral Liquid Extended Release) 1 Liquid ER bid for 0 days Quantity: 6 {Liquid_ER} Refills: 0 Ordered:13-Sep-2014 Raiza Ortiz Start : 07-Sep-2014 End : 13-Sep-2014 Discontinued ERGOCALCIFEROL, 94402SYWH (Oral Capsule) 1 (one) Capsule q week for 0 days Quantity: 12 {Capsule} Refills: 3 Ordered:19-Aug-2015 Alexy KEBEDECameliaa A Start : 19-Aug-2015 End : 19-Aug-2015 Discontinued FLONASE, 50MCG/ACT (Nasal Suspension) 2 (two) Suspension qd, prn for 0 days Quantity: 1 {Suspension} Refills: 2 Ordered:15-Feb-2015 Raiza Ortiz Start : 02-Nov-2014 End : 19-Aug-2015 Discontinued Comments:This order discontinued per [facility]. FREESTYLE LANCETS (Miscellaneous) 1 Misc bid for 0 days Quantity: 100 {Misc} Refills: 3 Ordered:19-Aug-2015 Raiza Ortiz Start : 13-Jul-2013 End : 19-Aug-2015 Discontinued FREESTYLE LITE (Device) 1 Device uad for 0 days Quantity: 1 {Device} Refills: 0 Ordered:19-Aug-2015 Raiza Ortiz Start : 13-Jul-2013 End : 19-Aug-2015 Discontinued FREESTYLE LITE TEST (In Vitro Strip) 1 Strip bid for 0 days Quantity: 100 {Strip} Refills: 3 Ordered:19-Aug-2015 Raiza Ortiz Start : 13-Jul-2013 End : 19-Aug-2015 Discontinued GLUCOPHAGE, 500MG (Oral Tablet) 2 (two) Tablet bid for 0 days Quantity: 120 {Tablet} Refills: 3 Ordered:05-Mar-2011 Alexy KEBEDEMaggie A Start : 05-Mar-2011 End : 05-Mar-2011 Discontinued LASIX, 20MG (Oral Tablet) 1 Tablet qd for 0 days Quantity: 3 {Tablet} Refills: 0 Ordered:19-Aug-2015 Raiza Ortiz Start : 23-Jun-2012 End : 19-Aug-2015 Discontinued Levaquin 500 MG Oral Tablet 1 (one) Tablet qd for 0 days Quantity: 7 {Tablet} Refills: 0 Ordered:28-Oct-2017 Marcia Britton Start : 07-Aug-2017 End : 28-Oct-2017 Discontinued LEVAQUIN, 500MG (Oral Tablet) 1 Tablet daily for 0 days Quantity: 10 {Tablet} Refills: 0 Ordered:05-Jan-2013 Alexy KEBEDEMaggie A Start : 05-Jan-2013 End : 05-Jan-2013 Discontinued LIPITOR, 40MG (Oral Tablet) 1 (one) Tablet q 3 days q hs for 90 days Quantity: 90 {Tablet} Refills: 3 Ordered:29-Sep-2012 Maggie Tracey DO Start : 29-Sep-2012 End : 29-Sep-2012 Discontinued LIPITOR, 40MG (Oral Tablet) 1 Tablet QD for 0 days Refills: 0 Ordered:10-Jul-2007 Mai Montero Start : 10-Jul-2007 End : 10-Jul-2007 Discontinued L-METHYLFOLATE CALCIUM, 15MG (Oral Tablet) 1 (one) Tablet qd for 30 days Quantity: 30 {Tablet} Refills: 3 Ordered:19-Aug-2015 Raiza Ortiz Start : 06-Jan-2014 End : 19-Aug-2015 Discontinued MELOXICAM, 7.5MG (Oral Tablet) 1 (one) Tablet daily for 30 days Quantity: 30 {Tablet} Refills: 3 Ordered:09-Sep-2009 Maggie Tracey DO Start : 09-Sep-2009 End : 09-Sep-2009 Discontinued NASONEX, 50MCG/ACT (Nasal Suspension) 2 (two) Suspension Daily for 0 days Refills: 0 Ordered:19-Aug-2015 Raiza Ortiz Start : 02-Nov-2014 End : 19-Aug-2015 Discontinued PHENERGAN, 25MG (Oral Tablet) 1 (one) Tablet Q 8 HR PRN for 0 days Quantity: 10 {Tablet} Refills: 0 Ordered:18-Oct-2006 Lashonda Lee LPN Start : 18-Oct-2006 End : 11-Mar-2007 Discontinued PRAVASTATIN SODIUM, 20MG (Oral Tablet) 1 (one) Tablet qd for 0 days Quantity: 30 {Tablet} Refills: 3 Ordered:19-Aug-2015 Maggie Tracey DO Start : 19-Aug-2015 End : 19-Aug-2015 Discontinued PREDNISONE, 10MG (Oral Tablet) 1 Tablet 3 pills for 3 days 2 pills for 3 days 1 pill for 3 days with food for 0 days Quantity: 18 {Tablet} Refills: 0 Ordered:19-Aug-2015 Raiza Ortiz Start : 13-Sep-2014 End : 19-Aug-2015 Discontinued Comments:take with food in am PREDNISONE, 20MG (Oral Tablet) 1 (one) Tablet Tablet daily for 7 days for 0 days Quantity: 7 {Tablet} Refills: 0 Ordered:19-Aug-2015 Raiza Ortiz Start : 02-Nov-2014 End : 19-Aug-2015 Discontinued PULMICORT, 0.5MG/2ML (Inhalation Suspension) 1 (one) Suspension Suspension once daily for 30 days Quantity: 30 {Nebule} Refills: 3 Ordered:19-Aug-2015 Raiza Ortiz Start : 14-Sep-2014 End : 19-Aug-2015 Discontinued QNASL, 80MCG/ACT (Nasal Aerosol Solution) 2 (two) Aerosol Soln puffs q am for 0 days Quantity: 1 {Aerosol_Soln} Refills: 0 Ordered:19-Aug-2015 Raiza Ortiz Start : 24-Nov-2012 End : 19-Aug-2015 Discontinued SIMVASTATIN, 20MG (Oral Tablet) 1 (one) Tablet daily for 0 days Quantity: 30 {Tablet} Refills: 0 Ordered:23-Jun-2012 Maggie Tracey DO Start : 23-Jun-2012 End : 23-Jun-2012 Discontinued VITAMIN D (ERGOCALCIFEROL), 69242SDCT (Oral Capsule) 1 Capsule q week for 0 days Quantity: 12 {Capsule} Refills: 2 Ordered:19-Aug-2015 Raiza Ortiz Start : 07-Apr-2013 End : 19-Aug-2015 Discontinued VITAMIN D, 12595PLSX (Oral Capsule) 1 (one) Capsule q week for 0 days Quantity: 12 {Capsule} Refills: 0 Ordered:03-Jan-2010 Apoorva Calle Start : 03-Jan-2010 End : 12-Apr-2010 Discontinued Comments:This order discontinued per [facility]. VITAMIN D3, 2000UNIT (Oral Capsule) 1 cap Capsule bid for 0 days Quantity: 60 {Capsule} Refills: 0 Ordered:03-Oct-2011 Raiza Ortiz Start : 03-Oct-2011 End : 03-Oct-2011 Discontinued ZYRTEC ALLERGY, 10MG (Oral Tablet) 1 Tablet qhs for 0 days Quantity: 30 {Tablet} Refills: 0 Ordered:19-Aug-2015 Raiza Ortiz Start : 06-Jun-2015 End : 19-Aug-2015 Discontinued Allergies and Adverse Reactions Name Dates Details bee stings (Allergy) Status: Active LORABID, 100MG/5ML (Oral Suspension Reconstituted) Status: Active (Allergy) MUCINEX, 600MG (PO Tab CR) (Allergy) Status: Active Naproxen *ANALGESICS - ANTI-INFLAMMATORY* (Allergy) Status: Active Comments: cause hives Oruval (Allergy) Status: Active Penicillins (Allergy) Status: Active Past Medical History Name Dates Details Abdominal pain, acute, right upper quadrant (R10.11, 789.01) Status: Resolved as of 11-Mar-2007 Abnormal blood chemistry (R79.9, 790.6) Status: Resolved as of 12-Dec-2017 Abnormal EKG (R94.31, 794.31) Status: Inactive as of 07-Aug-2017 Abnormal glucose tolerance test (R73.02, 790.22) Status: Inactive as of 05-Mar-2011 Abnormal lung sounds (R09.89, 786.7) Status: Resolved as of 24-Aug-2016 Abnormal mammogram (Renamed from Abnormal finding on mammography) (R92.8, 793.80) Status: Inactive as of 07-Aug-2017 Abnormal TSH (R79.89, 790.6) Status: Inactive as of 06-Jun-2009 Abnormal TSH (R79.89, 790.6) Status: Resolved as of 12-Dec-2017 Abnormal urine (R82.90, 791.9) Status: Resolved as of 05-Jan-2013 Acute bronchitis (J20.9, 466.0) Status: Resolved as of 05-Dec-2015 Acute sinusitis, unspecified (J01.90, 461.9) 08-Aug-2011 Status: Resolved as of 05-Dec-2015 Allergic reaction to chemical substance (T65.91XA, 989.9) Status: Inactive as of 07-Aug-2017 Allergic rhinitis (J30.9, 477.9) Status: Inactive as of 07-Aug-2017 Allergic urticaria (L50.0, 708.0) Comments: reveiwed with patient hospital reports pt will use prednisone. told not to take any nsaids now except tylenol. if returns consider changing ACEI. also sending to Dr. turner. Status: Inactive as of 07-Aug-2017 Altered mental status (Renamed from Abnormal mental state) (R41.82, 780.97) Status: Inactive as of 07-Aug-2017 BMI 35.0-35.9,adult (Z68.35, V85.35) Status: Inactive as of 07-Aug-2017 BMI 36.0-36.9,adult (Z68.36, V85.36) Status: Inactive as of 07-Aug-2017 BMI 37.0-37.9, adult (Z68.37, V85.37) Status: Inactive as of 07-Aug-2017 Body mass index 38.0-38.9, adult (Z68.38, V85.38) Status: Resolved as of 12-Dec-2017 Bronchitis (J40, 490) Status: Inactive as of 07-Aug-2017 Bronchitis (J40, 490) Status: Inactive as of 20-Sep-2016 cardiomegaly Comments: get sleep study Status: Inactive as of 28-Jun-2009 CERTAIN ADVERSE EFFECTS NOT ELSEWHERE CLASSIFIED; ALLERGY, UNSPECIFIED (995.3) Status: Resolved as of 12-Dec-2017 Chest discomfort (R07.89, 786.59) Comments: symptoms better she feels anxiety related - but get echo - stress test cxr ok Status: Inactive as of 08-May-2016 Closed fracture of distal end of left ulna with routine healing, unspecified fracture morphology, subsequent encounter (S52.602D, V54.12) Status: Inactive as of 07-Aug-2017 Closed fracture of multiple ribs with routine healing, unspecified laterality, subsequent encounter (S22.49XD, V54.19) Status: Inactive as of 07-Aug-2017 Cough (R05, 786.2) Status: Resolved as of 24-Aug-2016 Cough (R05, 786.2) Status: Inactive as of 07-Aug-2017 Cough (R05, 786.2) Status: Resolved as of 09-Nov-2014 dcreening Status: Inactive as of 05-Dec-2015 Dehydration (E86.0, 276.51) 10-Jan-2010 Status: Resolved as of 17-Feb-2010 Dehydration (E86.0, 276.51) Comments: positive orthostatics Status: Inactive as of 07-Aug-2017 Dermatitis (L30.9, 692.9) Status: Inactive as of 28-Jun-2009 Diarrhea (Renamed from D (diarrhea)) (R19.7, 787.91) Status: Resolved as of 05-Apr-2010 Eczema herpeticum (B00.0, 054.0) Status: Resolved as of 05-Apr-2010 Encounter for Medicare annual wellness exam (Z00.00, V70.0) Status: Inactive as of 05-Dec-2015 Encounter for Medicare annual wellness exam (Z00.00, V70.0) Status: Inactive as of 05-Dec-2015 Epigastric pain (Renamed from Abdominal pain, epigastric) (R10.13, 789.06) Status: Resolved as of 05-Apr-2010 Fall down steps, initial encounter (W10.8XXA, E880.9) Status: Inactive as of 25-Apr-2017 Finger (883.0) Comments: finger tip eczema improving Needs ongoing lubrication with vaseline and gloves, avoid irritation of wet to dry and avoid rubbing it discussed with pt. Status: Inactive as of 28-Jun-2009 Flu-like symptoms (R68.89, 780.99) Status: Resolved as of 20-Aug-2016 Gastroenteritis (K52.9, 558.9) Comments: resolved Status: Resolved as of 11-Mar-2007 GERD (gastroesophageal reflux disease) (K21.9, 530.81) Comments: chronic stable- continue present regimen Status: Inactive as of 08-Feb-2012 Glucose intolerance (no malabsorption) (E74.39, 271.3) Status: Inactive as of 03-Jan-2010 Hypertensive urgency (I16.0, 401.9) Status: Inactive as of 25-Apr-2017 Infection of skin of finger (L08.9, 686.9) Status: Resolved as of 22-Mar-2016 Inflamed skin tag (L91.8, 701.9) Status: Inactive as of 08-Feb-2012 Influenza vaccination declined (Renamed from Refused influenza vaccine) (Z28.21, V64.06) Status: Inactive as of 07-Aug-2017 Knee pain (Renamed from Arthralgia of knee) (M25.569, 719.46) Status: Inactive as of 07-Aug-2017 Limb pain (M79.609, 729.5) 24-Jan-2011 Status: Inactive as of 07-Aug-2017 Medication side effect (T50.905A, 995.20) Status: Inactive as of 07-Aug-2017 Multiple Sites (879.8) Status: Resolved as of 27-Dec-2008 Muscle stiffness (M62.89, 728.9) Comments: fibro?--- ended up being from buspar Status: Resolved as of 21-Nov-2017 Nausea and vomiting (Renamed from N&V (nausea and vomiting)) (R11.2, 787.01) 17-Feb-2010 Status: Resolved as of 05-Apr-2010 Need for prophylactic vaccination and inoculation against influenza (Z23, V04.81) Status: Inactive as of 05-Dec-2015 Need for prophylactic vaccination and inoculation against influenza (Renamed from Need for immunization against influenza) (Z23, V04.81) Status: Inactive as of 05-Dec-2015 Need for vaccination against Streptococcus pneumoniae (Z23, V03.82) Status: Inactive as of 05-Dec-2015 Other chest pain (R07.89, 786.59) Comments: stress test normal Status: Inactive as of 28-Jun-2009 Other malaise and fatigue (R53.81, 780.79) Comments: B12 deficiency - B12 shots havent helped- i think and she admits to more depression cause of no motivation no zip to do anything - sleeps alotrefuses to do sleep study Status: Inactive as of 07-Aug-2017 Other vitamin B12 deficiency anemia (D51.8, 281.1) Status: Resolved as of 03-Aug-2016 Pain in unspecified hip (M25.559, 719.45) Status: Inactive as of 07-Aug-2017 Pain in unspecified joint (M25.50, 719.40) Status: Inactive as of 07-Aug-2017 Pain of hand, unspecified laterality (M79.643, 729.5) Status: Resolved as of 06-Jun-2009 Pancreatitis, acute (K85.9, 577.0) Comments: recent hospitalziation- sx resolved no obvious cause Status: Inactive as of 08-Feb-2012 PARONYCHIA (681.9) Status: Resolved as of 06-Jun-2009 Right hip pain (M25.551, 719.45) Status: Resolved as of 14-Nov-2017 Sciatica (Renamed from Neuralgia neuritis, sciatic nerve) (M54.30, 724.3) Status: Inactive as of 07-Aug-2017 screening Status: Inactive as of 05-Dec-2015 screening Status: Inactive as of 24-Oct-2010 screening Status: Inactive as of 28-Jun-2009 screening Status: Inactive as of 05-Dec-2015 Shortness of breath at rest (R06.02, 786.05) Status: Resolved as of 24-Aug-2016 Sinus congestion (R09.81, 478.19) Status: Inactive as of 27-Dec-2008 Skin lesion (L98.9, 709.9) Status: Inactive as of 07-Aug-2017 Skin lesion (L98.9, 709.9) Status: Resolved as of 05-Apr-2010 SOB (shortness of breath) on exertion (R06.02, 786.05) Status: Resolved as of 09-Nov-2014 Sore throat (J02.9, 462) Status: Resolved as of 05-Dec-2015 Stress reaction (F43.0, 308.9) Status: Resolved as of 05-Jan-2013 Tachycardia (R00.0, 785.0) Status: Inactive as of 20-Sep-2016 Trigger index finger of right hand (M65.321, 727.03) Status: Inactive as of 07-Aug-2017 Unspecified Diagnosis Status: Inactive as of 05-Dec-2015 Unspecified Diagnosis Status: Inactive as of 05-Dec-2015 Upper Respiratory Infection (J06.9, 465.9) Status: Resolved as of 05-Dec-2015 Upper respiratory infection (Renamed from Infection of the upper respiratory tract) (J06.9, 465.9) Comments: improving Status: Resolved as of 05-Dec-2015 Viral infection (B34.9, 079.99) Comments: with swolen sinus then will give prednisone. steriod nasal spray Status: Resolved as of 05-Dec-2015 Wheezing (Renamed from Asthmatic breathing) (R06.2, 786.07) Status: Resolved as of 09-Nov-2014 Procedures Procedure Dates Details Cataract, Removal, Insert Lens Prosthetic Completed Comments: both eyes 2009 Cholecystectomy (Gall Bladder Removal) Completed Comments: 2009 Date Value Details 14-May-2018 Emergency Department Summary Result: Comments: See Note; NOTES: [facility] Medical Records Department [address] [place] [address] Emergency Department Summary 05/14/18 0908 MR#: [id number] Acct: [id number] Name: MARICRUZ GRIGSBY Rep #: [id number] : 1940 78 From: Zee Denise MD PCP: Doris Navarro DO Status: DEP ER - ER Visit Summary Date of Service: 05/14/18 Chief Complaint: [] Trippe d at home fell left shoulder left upper chest pain History of Present Illness: The patient is a 78 F [] history of hypertension diabetes stable she ended up tripping 3 AM on an object she injured her l eft shoulder and left upper chest she had no headache or head trauma no neck pain no other chest pain no paresthesias she came in because of persistent pain she has no other complaints and her general h ealth condition has been very stable Physical Examination: [] She indicates her chief complaint is left shoulder pain she is holding the shoulder close to her body her vital signs are within normal ran ge she is in no distress HEENT exam is unremarkable the neck is nontender the lungs are clear the heart tones are normal abdomen soft nontender upper lower extremities unremarkable except the left shoul meggan. She has a pain to the left shoulder that cause her decreased range of motion is noticeably deformity her arm elbow wrist hand unremarkable left hand function normal the C-spine T-spine lumbar spine are not tender she has a vague pain to the region of her left breast the breast itself is not tender seems to be bony pain around the left breast area but there is no crepitance or subcu air neurologic ally she is awake alert moving all 4 no cranial nerve motor or sensory abnormalities her NIH is 0 she assures me she just fell on her left shoulder Test Results: [] Emergency Department Course and Otto atment: [] X-ray morphine for pain, chest x-ray left shoulder left elbow x-rays are obtained, these x-rays 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, no fractures in the extremities, there is notation on chest x-ray of nothing acute, however a left shoulder x-ray there is a mention of a nondisplaced left anterior lateral rib fracture, she also had healed fracture rib fracture on the right, discussed all this about to the patient discussed the concept of the occult injury rotator cuff except for the rib fracture, she is comfortable discharge home on a sling, she will follow with her family doctors she is re ferred to [facility] for the shoulder injury and she will return for change in symptoms and she is comfortable with this plan Treatment Plan: [] Disposition: [] Stable home Impression: [] Fall left rib fracture, left shoulder injury This note was generated with [employer] software. It may contain incorrect words, spelling, and punctuation that were not noted in review of the shelby rt prior to signing ED Disposition - Plan for ED Patient: Chief Complaint: Fall Referrals: Doris Navarro DO [Primary Care Provider] - What to do if you have Problems For any increased pain, sh ortness of breath, bleeding, nausea or vomiting, chest pain, or any unexpected problems, contact your Primary Care Provider. Call [facility] ([phone]) or report to the closest Emergency Room. Call 911 if necessary. 05/14/18 1530 <Electronically signed by Zee Denise MD> Date Zee Denise MD Cosigner Signatur e (If Indicated): Date CC: Dorsi Navarro DO 14-May-2018 Discharge Instruction Result: Comments: See Note; NOTES: [facility] Medical Records Department [address] [place] [id number] Discharge Instruction 05/14/18 1133 MR#: [id number] Acct: [id number] Name: CLIFFORD HOBBSMARICRUZ THORNE Rep #: [id number] : 1940 78 From: Zee Denise MD PCP: Doris Navarro DO Status: REG ER ED Disposition - Plan for ED Patient: Chief Complaint: Fall Instructions: ED M echanical Fall, ED Fx Rib, ED Sprain Shoulder, ED Sling Prescriptions: Hydrocodone Bitart/Apap 5-325 [[place] 5MG-325MG] 1 tab PO Q6H PRN PRN 3 Days #10 tab PRN Reason: Pain Referrals: Doris Navarro DO [Primary Care Provider] - What to do if you have Problems For any increased pain, shortness of breath, bleeding, nausea or vomiting, chest pain, or any unexpected problems, contact your Primary Car e Provider. Call [facility] ([phone]) or report to the closest Emergency Room. Call 911 if necessary. 05/14/18 1134 <Electronically signed by Zee Denise MD> Date ___ Zee Denise MD Cosigner Signature (If Indicated): Date CC: Doris Navarro DO 14-May-2018 Chest PA and Lateral Result: Comments: See Note; NOTES: [facility] Imaging Services [address] [place] [id number] Chest PA and Lateral MR#: [id number] Acct: [id number] Name: MARICRUZ GRIGSBY Rep #: [id number] : 1940 F 78 From: Teo Wayne MD PCP: Doris Navarro DO Status: REG ER Study: Chest PA and Lateral Date of Exam: 05/14/18 Exam# [id number] Ordering Dr: Zee Denise MD STUDY: X-RAY CHEST REASON FOR EXAM: Female, 78 years old. Left-sided rib pain following a fall. TECHNIQUE: PA and lateral views of the chest. COMPARISON: Comparison is made with prior study dated J 2017. FINDINGS: Stable elevation of the right hemidiaphragm. The lungs are clear and expanded. There is no demonstrated pleural abnormality. There is mild cardiac enlargement. Normal mediastinum and pete. Normal visualized pulmonary arteries. There is atherosclerotic calcification of the aortic arch with tortuosity. There is demineralization of the osseo us structures. Levoscoliosis. Healed right rib fractures. There is no demonstrated abnormality of the visualized soft tissue structures of the upper abdomen. RAD/Chest PA and Lateral IMPRESSION: Healed right rib fractures. No acute abnormality is seen. 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 Study: Elbow min 3 Views Date of Exam: 05/14/18 Exam# [id number] Ordering Dr: Zee Denise MD STUD Y: X-RAY - LEFT ELBOW REASON FOR EXAM: Female, 78 years old. Pain following a fall. TECHNIQUE: 3 view(s) of the elbow. COMPARISON: None. FINDINGS: Normal visualiz ed humerus, radius and ulna. Normal radiocapitellar and ulnotrochlear articulations. The soft tissue structures are unremarkable. RAD/Elbow min 3 Views IMPRESSION: Normal x-ray examination of the elbow. Electronically Signed: Teo Wayne MD at 10:12 EDT Tel [phone], Service support , CC: MD Sonam Denise; Doris Navarro DO Fourth Grade Teacher: Signed 14-May-2018 Shoulder min 2 Views Result: Comments: See Note; NOTES: [facility] Imaging Services [address] [place] [address] Shoulder min 2 Views MR#: [id number] Acct: [id number] Name: MARICRUZ GRIGSBY Rep #: [id number] : 1940 F 78 From: Teo Wayne MD PCP: Doris Navarro DO Status: REG ER Study: Shoulder min 2 Views Date of Exam: 05/14/18 Exam# [id number] Ordering Dr: Zee Denise MD STUDY: X-RAY - LEFT SHOULDER REASON FOR EXAM: Female, 78 years old. Pain following a fall. TECHNIQUE: 5 view(s) of the shoulder. COMPARISON: None. FINDINGS: The re is mild degenerative arthrosis of the glenohumeral articulation. There is degenerative arthrosis of the acromioclavicular joint without inferior osseous spur formation. Normal acromion. Normal humer al head and visualized proximal humerus. The soft tissue structures are unremarkable. Nondisplaced left rib fracture along the anterolateral aspect. -0025 RAD/Shoulder min 2 Views IMPRESSION: Degenerative changes. Nondisplaced fracture of the left fifth rib anterolaterally. Electronically Signed: Teo Wayne MD at 11:02 EDT Tel [phone], Service support , CC: MD Sonam Denise; Doris Navarro DO Fourth Grade Teacher: Signed 06-Feb-2018 History and Physical Exam Result: Comments: See Note; NOTES: [facility] Medical Records Department [address] [place] [address] History and Physical 02/06/182050 MR#: [id number] Acct: [id number] Name: MARICRUZ GRIGSBY Rep #: [id number] : 1940 77 From: María Barnes MD PCP: Doris Navarro DO Status: REG ER Y Location: ED Problem List (1) CKD (chronic kidney disease) stage 3, GFR 30-59 m l/min Status: Chronic (2) Esophageal reflux Status: Chronic (3) Type 2 diabetes mellitus Status: Chronic (4) Obesity Status: Chronic (5) Hypothyroidism Status: Chronic (6) CVA (cerebral vascular ac cident) Status: Chronic (7) Hypertension Status: Chronic History of Present Illness Date of Admission: 02/06/18 Chief Complaint: Diplopia, blurry vision. The patient is a 77 year old F with past medi priscilla history as mentioned above presented to the emergency room because of diplopia and blurry vision. Her symptoms started yesterday evening with seeing things double, intermittent, comes and goes, asso ciated with blurry vision, improved by closing one eye and it happens on both eyes and taking care of glasses off does not make any difference. Her mentioned that she complained of headache 2 da ys ago and usually never complains of headache. She denied slurred speech, facial numbness and tingling. She denied numbness or tingling of both upper or lower extremities. She had history of stroke wit h very minimal weakness on the right side of her body. She denied head injury or mechanical fall. She denied ear symptoms or pain. She denies fever or chills. She denied chest pain or shortness of breat h. In the emergency department, her vital signs were stable. Her routine blood work was remarkable for creatinine 1.42, otherwise normal. EKG revealed normal sinus rhythm without evidence of cardiac arr hythmias or acute ischemic changes. Troponin is negative. CT scan brain showed no acute infarction or hemorrhage. Chest x-ray showed no acute findings. She is being admitted for diplopia/blurred vision, possible TIA for evaluation. Past Medical History Past Medical History (Chronic Problems): Chronic Problems CKD (chronic kidney disease) stage 3, GFR 30-59 ml/min (Chronic) Esophageal reflux (Chroni c) History of pancreatitis (Chronic) History of abdominal pain (Chronic) Type 2 diabetes mellitus (Chronic) Obesity (Chronic) Hypothyroidism (Chronic) CVA (cerebral vascular accident) (Chronic) Hyperten blas (Chronic) Allergies naproxen [From Naprosyn] Allergy (Verified 02/06/18 17:38) Hives Penicillins [PCN] Allergy (Verified 02/06/18 17:38) Hives guaifenesin [From Mucinex] Adverse Reaction (Verifi ed 02/06/18 17:38) Unknown ketoprofen Adverse Reaction (Verified 02/06/18 17:38) Unknown loracarbef [From Lorabid] Adverse Reaction (Verified 02/06/18 17:38) Unknown bee sting Adverse Reaction (Uncoded 02/06/18 17:38) Unknown Home Medications: Ambulatory Orders Medication Instructions Recorded Alprazolam 0.05 mg PO BID PRN 08/09/13 Amlodipine Besylate 5 mg PO DAILY 08/09/13 Surgical History: appe ndectomy, cholecystectomy Psychiatric History: No pertinent psych hx 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 Denies: Drainage, Redness, Vision Change HEENT: Denies: Difficulty Hearing, Ear Pain, Eye Pain, Nasal Congestion, Sore Throat Cardiovascular: Denies: Chest Pain, Chest Pres sure, Chest Tightness, Heaviness, Light Headedness, Palpitations, Syncope Respiratory: Denies: Cough, Pleuritic Pain, Shortness of Breath, Sputum production, Wheezing Gastrointestinal: Denies: Abdominal Pain, Constipation, Diarrhea, Nausea, Vomiting Genitourinary: Denies: Dysuria, Frequency, Hematuria Musculoskeletal: Denies: Arm Pain, Back Pain, Foot Pain Skin: Denies: Dryness, Rash Neurological: Rep orts: Blurred vision, Double vision, Headaches. Denies: Balance problems, Change in Speech, Slurred speech, Confusion, Focal weakness, Numbness, Tingling Psychiatric: Denies: Anxiety, Depression Endocri ne: Denies: Change in Body Habitus, Polydipsia VTE Information - Inpt Only VTE Present on Admission: No VTE Mechan Device Prophylaxis: None VTE Pharm Prophylaxis ordered?: Yes - Physical Exam General: Alert, Oriented x3, Cooperative, No apparent distress HEENT: Atraumatic, PERRLA, EOMI Oral: Moist Mucosa, No Gingival or Mucosal Lesions/ Ulcerations Neck: Supple, No JVD, Negative Carotid Bruits, Trac hea Midline, Thyroid Normal Size and Texture Lungs: Clear to auscultation, No rhonchi, No wheeze, No rales, Diminished Cardiovascular: Regular rate, Regular Rhythm, Normal S1, Normal S2, PMI Normal Abdo men: Bowel Sounds Present, Soft, Non Tender, Non-Distended, No Hepato-splenomegaly, Obese Extremities: No clubbing, No cyanosis, No edema Skin: No rashes, No breakdown Musculoskeletal: No Tenderness to Palpation of Joints or Extremities Lymphatic: No Cervical, Supraclavicular, or Inguinal Adenopathy Neurological: Cranial nerves II-XII grossly intact, Motor Exam 5/5 strength throughout Psych/Mental Sta tus: Normal Affect, Appropriate, Alert and oriented to time, place, person, mood and affect Vital Signs Temp Pulse Resp BP Pulse Ox 97.6 F L 63 17 150/68 H 98 02/06/18 17:29 02/06/18 20:19 02/06/18 20: 19 02/06/18 20:19 02/06/18 20:19 Oxygen Delivery Method Room Air Weight: 185 lb Body Mass Index (BMI) 0.2 Finger Stick Blood Glucose 152 Laboratory Tests Past 24 Hrs POC Glucose POC Glucose 152 H Clinical Impression(s) from Imaging Studies Brain CT 02/06/18 17:55 IMPRESSION: No acute intracranial findings or changes. Negative for hemorrhage, hematoma or mass density. Negative for definitive d emarcation of the new nonhemorrhagic infarct zone. Stable involutional changes. Asymmetric small vessel ischemic changes versus old white matter infarct left hemisphere. Old lacunar infarct of the mid karlene. Incidental sinus findings as above. Electronically Signed: Renata Lee MD at 19:29 EDT , Service support , Chest X-Ray 8 18:35 IMPRESSION: No acute cardiopulmonary findings or changes. Negative for new consolidation, focal atelectasis or a substantial pleural effusion. Mild chronic changes in the right lung base above a mildly elevated diaphragm. Multiple prior healed right rib fractures. Electronically Signed: Renata Lee MD at 18:58 EDT , Service support , Fax Assessment/Plan This is a 77 years old female patient presented to the emergency room because of blurred vision/diplopia and she is being admitted for evaluation for probable TIA. #1 diplo brit/blurred vision/questionable TIA versus acute stroke: Initial CT scan brain without acute findings. No focal deficit on physical exam. Vital signs are stable. EKG revealed normal sinus rhythm, no acu te ischemic changes. Routine blood work reviewed. She did have history of stroke around 8 years ago with minimal residual right-sided body weakness. Plan: Admit to PCU, cardiac monitoring, NIH stroke sc santos, MRI brain, 2D echocardiogram, bilateral carotid Doppler, neurology consult, continue Plavix and Crestor, PT OT evaluation and treatment. #2 hypertension: Blood pressure stable, continue Norvasc, H CTZ and losartan as well as metoprolol. #3 type 2 diabetes mellitus: ADA diet, Accu-Cheks, insulin sliding scale, hold metformin. #4 hypothyroidism: Continue levothyroxine. #5 history of stroke: With no obvious significant residual deficit of the patient complained of right-sided weakness but her power is 5.5 on all limbs. Plan as above, continue Plavix and statins. #6 hyperlipidemia: Continue sta tins. #7 stage III chronic kidney disease: Baseline creatinine is around 1.3- 1.7 mg/dL. Admission creatinine is 1.42, stable. #8 DVT prophylaxis: Subcu heparin. This note was generated with [employer] software. It may contain incorrect words, spelling, and punctuation that were not noted in checking the note before signing. Code Visit OBSV E AND M: 95089 Initial observation care L3 07/12/08 05 2108 <Electronically signed by María Barnes MD> Date María Barnes MD Cosigner Signature: Date (if applicable) CC: María Barnes; Doris Navarro DO Signed 06-Feb-2018 Brain/Head without Contrast Result: Comments: See Note; NOTES: [facility] Imaging Services [address] [place] [address] Brain/Head without Contrast MR#: [id number] Acct: [id number] Name: MARICRUZ GRIGSBY Rep #: [id number] : 1940 F 77 From: Renata Lee MD PCP: Doris Navarro DO Status: REG Study: Brain/Head without Contrast Date of Exam: 02/06/18 Exam# [id number] Ordering Dr: Cameron Marte MD STUDY: CT BRAIN WITHOUT CONTRAST REASON FOR EXAM: Female, 77 years old. Blurred vision and headache. Prior history of stroke. RADIATION DOSAGE (If Supplied By Facility): CTDIvol = ( 44.99 ) m Gy, DLP = ( 779.24 ) mGycm TECHNIQUE: Transaxial CT imaging of the brain was performed without administration of intravenous contrast material. Individualized dose optimization techniques were used fo r this CT. COMPARISON: Prior CT exam of March 03, 2017 FINDINGS: Normal soft tissue structures. Normal calvarium. There is mild cerebral atrophy with widening of t he extra-axial spaces and ventricular dilatation. There are areas of decreased attenuation within the white matter tracts of the supratentorial brain, consistent with microvascular disease changes. More advanced focal ischemic changes in the deep white matter of the left hemisphere, periventricular which may be the sequelae of an old infarct. The finding is stable from the prior examination. Old lacun ar infarct of the mid karlene. There is mild cerebellar atrophy. There is no intracranial hemorrhage. There are no findings of an acute ischemic infarction. Mild mucosal thickening and a small retention cyst at the base of the left maxillary sinus. CT/Brain/Head without Contrast IMPRESSION: No acute intracranial findings or changes. Negative for hemorrhage, hematoma or mass density. Negative for definitive demarcation of the new nonhemorrhagic infarct zone. Stable involutional changes. Asymmetric small vessel ischemic changes versus old white matter infarct left hemisphere. Old lacunar infarct of the mid karlene. Incidental sinus findings as above. Electronically Signed: Renata Lee MD at 19:29 EDT , Service support , CC: Doris Navarro DO; Jered Marte Fourth Grade Teacher: Signed 06-Feb-2018 Chest 1 View Result: Comments: See Note; NOTES: [facility] Imaging Services [address] [place] [address] Chest 1 View MR#: [id number] Acct: [id number] Name: MARICRUZ GRIGSBY Rep #: [id number] : 1940 F 77 From: Renata Lee MD PCP: Doris Navarro DO Status: [facility] ER Study: Chest 1 View Date of Exam: 02/06/18 Exam# [id number] Ordering Dr: Jered Marte MD STUDY: X-RAY CHEST R JAMAAL FOR EXAM: Female, 77 years old. Headache and blurred vision. TECHNIQUE: 1 view COMPARISON: Prior chest radiograph of August 24, 2017 FINDINGS: Lung medeiros remain expanded without new consolidation or focal atelectasis. Mild chronic change at the right lung base above an elevated diaphragm. Normal size heart. Fatty mediastinum. Normal visualized pulmonary arteries. There is atherosclerotic calcification of the aortic arch with tortuosity. Mild scoliosis. Multiple prior healed right rib fractures. There is no demonstrated abnormality of the visualized soft tissue structures of the upper abdomen. RAD/Chest 1 View IMPRESSION: No acute cardiopulmonary findings or changes. Negative for new consolid ation, focal atelectasis or a substantial pleural effusion. Mild chronic changes in the right lung base above a mildly elevated diaphragm. Multiple prior healed right rib fractures. Electronically Sig radha: Renata Lee MD at 18:58 EDT , Service support , CC: Doris Navarro DO; Jered Marte Fourth Grade Teacher: Signed 25-Nov-2017 Liver Result: Comments: See Note; NOTES: [facility] Imaging Services [address] [place] [address] Liver MR#: [id number] Acct: [id number] Name: MARICRUZ GRIGSBY Stuart Rep #: [id number] : 1940 F 77 From: Mack Hand MD PCP: Doris Navarro DO Status: REG CLI Study: Liver Date of Exam: 11/25/17 Exam# [id number] Ordering Dr: Doris Naavrro DO STUDY: ABDOMINAL ULTRASOUND - RIGHT UPPER QUADRANT REASON FOR VISIT: Female, 77 years old. Elevated LFTs TECHNIQUE: Ultrasound evaluation of the right upper quadrant was performed with real-time and static anderson-scale imaging. TECHNICAL QUALITY: Adequate. COMPARISON: Previous CTs FINDINGS: Liver: The liver measures 18.1 cm. There is increased echogenicity consistent with fatty infiltration. The b ile ducts are within normal limits. There is hepatic color flow. The direction of portal flow is hepatopetal. There is no demonstrated mass lesion. Gallbladder: The patient is status post cholecystecto my. Common Bile Duct (C.B.D.): The common bile duct measures 6 mm. Pancreas: Normal size of the head, body and tail of the pancreas. There is increased echogenicity of the pancreas. There is no demons trated pancreatic mass or cyst. Right Kidney: Normal size of the right kidney. The right kidney measures 10.3 x 6.1 x 5.7 cm. Normal renal cortex. The right cortex measures 0.9 cm. There are multiple s imple renal cysts measuring between 1.3 and 4.0 cm There is no right hydronephrosis. US/Liver IMPRESSION: Fatty infiltration of liver, no discret e lesion Previous cholecystectomy Nonspecific echogenic pancreas Simple right renal cysts Electronically Signed: Leopoldo Hand MD at 12:34 EDT , Service support [phone], CC: Doris Navarro DO Fourth Grade Teacher: Signed 29-Oct-2017 Hip 2-3 Views with Pelvis Result: Comments: See Note; NOTES: [facility] Imaging Services [address] [place] [address] Hip 2-3 Views with Pelvis MR#: [id number] Acct: [id number] Name: MARICRUZ GRIGSBY #: [id number] : 1940 F 77 From: Benji Finch PCP: Doris Navarro DO Status: REG CLI Study: Hip 2-3 Views with Pelvis Date of Exam: 10/29/17 Exam# [id number] Ordering Dr: Thelma Sofia CUT OFF MACHINE OPERATOR- C STUDY: X-RAY - PELVIS AND LEFT HIP REASON FOR EXAM: Female, 77 years old. Left hip pain for 2 weeks. No history of trauma. TECHNIQUE: Radiological exam, hip, unilateral, with pelvis when performed ; 2 or 3 views. COMPARISON: None. FINDINGS: There is a non-specific bowel gas pattern. Normal visualized soft tissue structures. Normal bilateral iliac wings, sacr oiliac joints and visualized sacrum. Normal bilateral superior and inferior pubic rami. Normal pubic symphysis. Normal bilateral ischial tuberosities. Right hip is grossly normal. Normal visualized le ft femoral head. Normal acetabulum. Normal hip joint. Disc space narrowing in the lower lumbar spine. Phleboliths left hemipelvis. RAD/Hip 2-3 V iews with Pelvis IMPRESSION: Normal x-ray examination of the pelvis and hip. Degenerative changes of the lower lumbar spine. Electronically Signed: Benji Finch MD at 0:01 EDT Tel , Service support , CC: QUINN Sofia; Doris Navarro DO Fourth Grade Teacher: Signed 27-Aug-2017 12 Lead Electrocardiogram Result: Comments: See Note; NOTES: [facility] Cardiovascular Services [address] [place] [address] 12 Lead EKG 08/24/17 1719 MR#: [id number] Acct: [id number] Name: PORTIA GRIGSBY Rep #: [id number] : 1940 77 From: Maurilio Meraz MD Attending Dr: Status: DEP ER Ordering Dr: Zee Denise MD Date: 08/24/17 Location: ED Sex: F C Admitted: Test Reason : SOB Bloo d Pressure : / mmHG Vent. Rate : 093 BPM Atrial Rate : 093 BPM P-R Int : 178 ms QRS Dur : 084 ms QT Int : 374 ms P-R-T Axes : 020 -21 047 degrees QTc Int : 465 ms Normal sinus rhythm Normal ECG C onfirmed by SOLEDAD STREETER, MAURILIO ([id number]), restaurant expeditor STACY CARTER ([id number]) on 08/27/2017 10:37:34 AM Referred By: EITAN Confirmed By:MAURILIO MERAZ MD 08/27/17 1037 Date Maurilio Meraz MD CC: Doris Melanie KEBEDE Signed 25-Aug-2017 Emergency Department Summary Result: Comments: See Note; NOTES: [facility] Medical Records Department [address] [place] [address] Emergency Department Summary 08/24/17 1709 MR#: [id number] Acct: [id number] Name: MARICRUZ GRIGSBY Rep #: [id number] : 1940 77 From: Zee Denise MD PCP: Doris Navarro DO Status: DEP ER - ER Visit Summary Date of Service: 08/24/17 Chief Complaint: [] Runny nose harsh cough for almost 2 months History of Present Illness: The patient is a 77 F [] began early June she was thoroughly evaluated as an outpatient by her physicians she believes she was teste d for the flu she has been on multiple antibiotics, she has persistence of a harsh dry cough, she was recently referred to Dr. Mullen of ENT who examined her told her she had upper respiratory infection , she is on antibiotic and a nasal spray, she also has a nebulizer machine she can use at home. She has no history of [place] PE or DVT she does have history of prior stroke and a heart murmur. She is able l ie flat she is able to walk no orthopnea. She simply states she has a persistence of this harsh cough she feels that has triggered her anxiety, she is taking all of her anxiety medications Physical Exa mination: [] Vital signs are within normal range she speaking full sentences she is in no distress her pulse ox is 98% on room air she does have a harsh dry cough here her nose is congested the throat i s clear the lungs are clear the heart tones really unremarkable the abdomen soft obese but nontender upper lower extreme is unremarkable sinus clubbing or edema neurologically she is awake alert moving all 4 clinically she looks well Test Results: [] Emergency Department Course and Treatment: [] Patient bluntly told me that she feels the symptoms related to her anxiety she wants her anxiety medicati ons adjusted I explained her we will do a screening examination to look for medical condition causing the coughing any adjustments to her anxiety medications need to be obtained by her primary care doct ors EKG labs chest x-ray are all unremarkable see those reports, the patient's resting comfortably in the department, she is in absolutely no distress smiling and talking normally I explained her she likely has a URI that is causing the persistent coughing she has been on antibiotics she is currently on antibiotics she is on a nasal inhaler she has a nebulizer machine at home with the meds I have as ked her to use that she insists that there is an issue with her anxiety and that net meds need to be adjusted and have asked her to discuss that with her primary care doctors and return for change in sy mptoms Treatment Plan: [] Disposition: [] Stable Impression: [] URI with harsh cough, history of anxiety, patient concerned her anxiety regimen should be altered This note was generated with [employer] dictation software. It may contain incorrect words, spelling, and punctuation that were not noted in review of the chart prior to signing ED Disposition - Plan for ED Patient: Chief Complaint: Shor tness of Breath Referrals: Doris Navarro, [Primary Care Provider] - What to do if you have Problems For any increased pain, shortness of breath, bleeding, nausea or vomiting, chest pain, or any unexpected problems, contact your Primary Care Provider. Call [facility] ([phone]) or report to the closest Emergency Room. Call 911 if necessary. 08/25/17 0001 <Electronically sig radha by Zee Denise MD> Date Zee Denise MD Cosigner Signature (If Indicated): Date CC: Doris Navarro DO 24-Aug-2017 Discharge Instruction Result: Comments: See Note; NOTES: [facility] Medical Records Department [address] [place] [address] Discharge Instruction 08/24/17 1820 MR#: [id number] Acct: [id number] Name: MARICRUZ GRIGSBY Rep #: [id number] : 1940 77 From: Zee Denise MD PCP: Doris Navarro DO Status: REG ER ED Disposition - Plan for ED Patient: Chief Complaint: Shortness of Breath Ins tructions: ED Reactive Airway Disease, ED Bronchitis Asthmatic, ED Upper Resp Infec No Abx Tx Referrals: Doris Navarro DO [Primary Care Provider] - What to do if you have Problems For any increas ed pain, shortness of breath, bleeding, nausea or vomiting, chest pain, or any unexpected problems, contact your Primary Care Provider. Call [facility] ([phone]) or report to the closest [facility] Room. Call 911 if necessary. 08/24/17 1821 <Electronically signed by Zee Denise MD> Date Zee Denise MD Cosign er Signature (If Indicated): Date CC: Doris Navarro DO 24-Aug-2017 Chest PA and Lateral Result: Comments: See Note; NOTES: [facility] Imaging Services [address] [place] [address] Chest PA and Lateral MR#: [id number] Acct: [id number] Name: MARICRUZ GRIGSBY Stuart Rep #: [id number] : 1940 F 77 From: Stacy Tapia MD PCP: Doris Navarro DO Status: REG ER Study: Chest PA and Lateral Date of Exam: 08/24/17 Exam# [id number] Ordering Dr: Zee Denise MD XR Chest 2 Views INDICATION: pt stated short of breath cough and fever COMPARISON: None TECHNIQUE: 2 views of the chest FINDINGS: The heart size is mildly enlarged. Pulmonary vascularity is wi thin normal limits. Lungs are clear without evidence of airspace consolidation or pleural effusion. Osseous structures are grossly unremarkable. RAD/Chest PA and Lateral IMPRESSION: Cardiomegaly. Lungs appear clear. at 1849 Reported and signed by: Stacy Zamorano MD Electronically Signed: Stacy Tapia MD at 17:47 EST Tel , Service support , CC: MD Sonam Denise; Doris Navarro DO Fourth Grade Teacher: Signed 07-Aug-2017 Chest PA and Lateral Result: Comments: See Note; NOTES: [facility] Imaging Services [address] [place] [address] Chest PA and Lateral MR#: [id number] Acct: [id number] Name: CLIFFORD MARICRUZ CRUZ Rep #: [id number] : 1940 F 77 From: Teo Wayne MD PCP: Doris Navarro DO Status: REG CLI Study: Chest PA and Lateral Date of Exam: 08/07/17 Exam# [id number] Ordering Dr: Doris Navarro DO STUDY: X-RAY CHEST REASON FOR EXAM: Female, 77 years old. Abnormal lung sounds. TECHNIQUE: PA and lateral views of the chest. COMPARISON: Comparison is made with prior study dated July 20, 2016. FINDINGS: Stable elevation of the right hemidiaphragm. Scattered bilateral calcified granulomas. No acute infiltration is seen. There is no demonstrated pleural ab normality. There is mild cardiac enlargement. Normal mediastinum and pete. Normal visualized pulmonary arteries. There is atherosclerotic calcification of the aortic arch with tortuosity. There are di ffuse degenerative changes of the visualized thoracic spine. Mild levoscoliosis. Multiple healed right rib fractures. There is no demonstrated abnormality of the visualized soft tissue structures of th e upper abdomen. RAD/Chest PA and Lateral IMPRESSION: No acute abnormality is seen. Stable examination. Electronically Signed: Teo Logan i, MD at 13:49 EST Tel [phone], Service support , CC: Doris Navarro DO Fourth Grade Teacher: Signed 20-Nov-2016 Operative Report Result: Comments: See Note; NOTES: [facility] Medical Records Department [address] [place] [address] Operative Report 11/14/16 0736 MR#: [id number] Acct: [id number] Name: MARICRUZ BREAUX Rep #: [id number] : 1940 76 From: Liza Duron DO PCP: Doris Navarro DO Status: [facility] Location: [facility] Report of Operation Date of Procedure: 11/14/16 Pre-Operative Diagnosi s: Right third and fourth trigger fingers Post-Operative Diagnosis: Name Surgery/Procedure Performed:: Right hand third and fourth A1 shannan release Type of Anesthesia:: Block,Guerrero Anesthesiologist: Fox Michaels Estimated Blood Loss (mL): none Fluids Replaced: 500cc lR Description of Procedure: preOperative note Patient is a 76-year-old female well-known to me in clinic. Patient is triggering of her third and fourth fingers of the worsening patient failed conservative treatment. Patient elected to proceed with right third and fourth trigger A1 shannan release. Wrist benefits alternatives surgery discussed with patient. Risks including but not limited to blood loss, blood clot, infection, neurovascular injury, failure procedure, loss of life and loss of limb. Patient is aware would like proceed with right third and fourth trigger finger A1 shannan release. operative note Patient seen and examined preoperative holding area. History and physical and consent reviewed. Right hand was marked. Pat ient is brought to the operating room placed supine on the operating table. Sign, anesthesia, antibiotics were administered. The right arm was prepped and draped after Guerrero block was initiated. We marke d out her incisions for our third and fourth A1 shannan releases. We palpated the A1 shannan. We performed a timeout. We then used about a centimeter half incision over the A1 shannan over the fourth finge r we dissected down with tenotomies to the level of the A1 shannan which was released. We then pulled the tendons out of the incision and were able to flex and extend the fourth shannan without any catchi ng or locking. We then irrigated the fourth finger with copious amounts of sterile saline. We then did our third finger trigger release. We marked out our incision the use a 15 blade cut through skin en zymes dissected down to level A1 shannan. We then used tenotomies to cut the A1 shannan. We then pulled the tendons out of the incision and flexed and extended the finger and had no triggering or locking. We then irrigated both incisions with copious amounts of sterile saline the incisions were closed with interrupted 4-0 nylon stitches. Sterile dressings were applied the tourniquet was deflated for tot al working time of 10 minutes. Patient tolerated procedure well there were no complications. Postoperative note Maintain dressing Prescriptions at Hospital pharmacy next Call with increased pain, nu mbness, tingling further issues arise Follow-up in 2 weeks in office Dragon disclaimer Dragon disclaimer This note was generated with [employer] dictation software. It may contain incorrect words, spellin g, and punctuation that were not noted in checking the note before signing. 11/20/16 1231 <Electronically signed by Liza Duron DO> Date Liza Duron DO CC: Liza Duron DO; Doris Navarro DO Signed 16-Nov-2016 Oncology Progress Note Result: Comments: See Note; NOTES: [facility] Medical Records Department [address] [facility] [place] [address] Oncology Progress Note MR#: [id number] Acct: [id number] Name: PORTIA GRIGSBY Rep #: [id number] : 1940 76 From: Sal Urrutia MD PCP: Doris Navarro DO Status: REG RCR DATE OF SERVICE: 11/07/2016 PROBLEM: Anemia. CHIEF COMPLAINT: Follow up for anemia workup. 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 She was seen in the clinic on October 10, 2016. SPEP still showed M-spike of 0.3, kappa lambda ratio was 0.98. Ferritin was 45. Iron level was 49. IgG was 783 in November 2015. She had guaiac positive stools, so the patient was referred for GI evaluation. She had colonoscopy, which reportedly showed polyps and she is in the clinic today for follow up. REVIEW OF SYSTEMS: She feels well. No weight loss, fever, night sweats. All other systems are reviewed and negative. OBJECTIVE: VITAL SIGNS: Blood pressure 180/83, pulse is 69 per minute, temperature 97.9, respirations 16 per minute. GENERAL: Elderly woman in no acute distress. ASSESSMENT: Anemia secondary to chronic gastrointestinal bleed with iron deficiency, MGUS. The patient is clinically stable. She had polyps. PLAN: Is to continue iron pills, return to the clinic in 6 months with CBC, CMP, iron pr ofile, vitamin B12, folate, SPEP and IgG level. Sal Urrutia MD T: NTS JOB: [id number] 11/16/16 0850 <Electronically signed by Sal Urrutia MD> Date Sal Urrutia MD Cosigner Signature (If Indicated): Date CC: Date Dictated: 11/08/16 1305 Date Transcribed: 11/08/16 1305 Fourth Grade Teacher: Signed 14-Nov-2016 Discharge Instruction Result: Comments: See Note; NOTES: [facility] Medical Records Department [address] [place] [address] Instructions for Home/Discharge Instructions 11/14/16 0735 MR#: [id number] Acct: [id number] Name: MARICRUZ GRIGSBY Rep #: [id number] : 1940 76 From: Liza Duron DO PCP: Doris Navarro DO Status: REG SDC Discharge Diet: No Restrictions - keep dressing clean and d ry, follow up in 2 weeks Discharge Activity: May Not Drive May shower in (days): 1 Ice area for (Minutes): 20 - Every hour while awake. Weight Bearing Status: Weight bearing as nayeli Keep extremity elevat ed above heart level: Operative Extremity Call your doctor if your incision/area has: Continuous Slow Oozing, Sudden Increased Bleeding, Increased Pain/ Swelling, Increased Redness, Foul Smelling Discha rge Call your doctor if you observe: Fever of 101 or Higher, Coldness, Increased Pain, Numbness or Tingling, Change in Color, Calf discomfort Allergies/Adverse Reactions: Allergies naproxen [From Napro syn] Allergy (Verified 11/13/16 11:38) Hives Penicillins [PCN] Allergy (Verified 11/09/16 08:57) Hives guaifenesin [From Mucinex] Adverse Reaction (Verified 11/09/16 08:57) Unknown ketoprofen Adverse Re action (Verified 11/09/16 08:57) Unknown loracarbef [From Lorabid] Adverse Reaction (Verified 11/09/16 08:57) Unknown bee sting Adverse Reaction (Uncoded 11/09/16 08:57) Unknown Medications to take at Discharge Alprazolam 0.05 mg PO BID PRN 08/09/13 Amlodipine Besylate 5 mg PO DAILY 08/09/13 Celecoxib [Celebrex] 100 mg PO DAILY 08/09/13 Citalopram Hydrobromide [Citalopram HBr] 40 mg PO DAILY Clopidogrel Bisulfate [Clopidogrel] 75 mg PO DAILY 08/09/13 Hydrochlorothiazide 25 mg PO DAILY 08/09/13 Lisinopril 5 mg PO DAILY 08/09/13 Metformin HCl [Metformin HCl ER] 1,000 mg PO BREAKFAST Metoprolol Tartrate [Lopressor (beta mert)] 100 mg PO DAILY 08/09/13 Omeprazole 20 mg PO DAILY 08/09/13 Trazodone HCl [Desyrel] 1 - 2 tab PO QHS 08/09/13 Levomefolate Calcium [l-Methylfolate] 15 m g PO DAILY 09/19/15 Rosuvastatin Calcium [Crestor] 5 mg PO DAILY 09/19/15 Cholecalciferol (Vitamin D3) [Vitamin D3] 5,000 unit PO DAILY 12/06/15 Levothyroxine [Synthroid] 175 mcg PO DAILY #30 tablet 05/13 Atorvastatin Calcium [Lipitor] 40 mg PO QHS 10/22/16 Buspirone HCl 10 mg PO DAILY 10/22/16 Lorazepam [Ativan] 0.5 mg PO DAILY 10/22/16 Losartan Potassium [Cozaar] 100 mg PO BID 10/22/16 Ferrous Yee lfate [Iron] 65 mg PO DAILY 11/09/16 Hydrocodone Bitart/Apap 5-325 [[place] 5MG- 325MG] 1 - 2 tablet PO Q6H PRN PRN #20 tablet 11/14/16 The following prescriptions were given: Hydrocodone Bitart/Apap 5- 325 [[place] 5MG-325MG] 1 - 2 tablet PO Q6H PRN PRN #20 tablet PRN Reason: Pain Primary Care Physician: Doris Navarro DO [Primary Care Provider] - Please Follow Up With: Liza Duron [phone] 11/14/16 0736 <Electronically signed by Liza Duron DO> Date Liza Duron DO CC: Doris Navarro DO 20-Jul-2016 Chest PA and Lateral Result: Comments: See Note; NOTES: [facility] Imaging Services [address] [place] [address] Verdana 4d Chest PA and Lateral MR#: [id number] Acct: [id number] Name: JAQUAN GRIGSBY Rep #: [id number] : 1940 F 76 From: Mack Hand MD PCP: Doris Navarro DO Status: REG CLI Study: Chest PA and Lateral Date of Exam: 07/20/16 Exam# [id number] Ordering Dr: Doris Navarro DO STUDY: X-RAY CHEST REASON FOR EXAM: Female, 76 years old. Shortness of breath at rest TECHNIQUE: PA and lateral views of the chest. COMPARISON: 12/05/2015 FIND INGS: There are interstitial fibrotic changes of the lungs. There is no demonstrated pleural abnormality. Stable cardiomegaly. Normal mediastinum and pete. Normal visualized pulmonary arteries. Normal visualized aortic arch and descending thoracic aorta. There are diffuse degenerative changes of the visualized thoracic spine. Old healed right rib fractures There is no demonstrated abnormality of t he visualized soft tissue structures of the upper abdomen. RAD/Chest PA and Lateral IMPRESSION: Chronic interstitial changes, no superimposed acu te pulmonary process. 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 Exam performed in department. Left Ventricle Normal size and thickness. The e stimated ejection fraction is 65 %. Stage 1 diastolic dysfunction. No regional wall motion abnormalities noted. Right Ventricle Normal size and thickness. Normal systolic function. Atria Normal left atrium. Normal right atrium. Normal atrial septum. Mitral Valve The mitral valve is structurally normal. No prolapse or stenosis seen. Tricuspid Valve Normal tricuspid valve. Unable to estima te RV systolic pressure. Aortic Valve Trisinus/trileaflet aortic valve. Mild diffuse aortic valve thickening. Mild aortic stenosis. Peak aortic valve gradient 16 mmHg. Mean aortic valve gradient 8 mmHg. Trivial aortic valve insufficiency. Pulmonic Valve Normal pulmonic valve. Great Vessels Normal aortic root. Normal arch. Normal inferior vena cava. Inferior vena cava collapse with sniff. Pericardium/Pleural No pericardial effusion. MMode/2D Measurements AND Calculations LVIDd: 4.3 cm IVSd: 1.2 cm LVOT diam: 2.0 cm LVIDs: 2.6 cm LVPWd: 1.0 cm LVOT area: 3.2 cm2 RVDd: 2.8 cm FS: 38 .3 % Ao root diam: 2.8 cm LAV(MOD-bp): 40.0 ml RA A4 area: 8.3 cm2 LA dimension: 4.0 cm LAV(MOD-bp) Indexed: 19.8 ml /m2 LAV(MOD-sp2): 37.6 ml LAV(MOD-sp4): 39.5 ml Doppler Measurements AND Calculations MV E max karina: 68.0 cm/sec Lat Peak E' Karina: 5.6 cm/sec Med Peak E' Karina: 4.2 cm/sec MV A max karina: 107.7 cm/sec E/E' lat: 12.1 E/E' med: 16.1 MV E/A: 0.63 Ao V2 max: 197.0 cm/sec LV V1 max: 120.8 cm/sec SV(LVOT): 71.7 ml Ao ma x P.5 mmHg LV V1 max P.8 mmHg Ao V2 mean: 136.0 cm/sec LV V1 mean P.8 mmHg Ao mean P.2 mmHg LV V1 mean: 78.2 cm/sec Ao V2 VTI: 36.2 cm LV V1 VTI: 22.6 cm OCTAVIO(I,D): 2.0 cm2 OCTAVIO(V,D) : 1.9 cm2 PA V2 max: 124.1 cm/sec Interpretation Summary The estimated ejection fraction is 65 %. Stage 1 diastol ic dysfunction. Unable to estimate RV systolic pressure. Mild aortic stenosis. There is no comparison study available. Ordering Physician: Maggie Tracey Performed By: Sharyn Bear [facility] 01/26/161611 Date ___ Mack Dickerson MD CC: Maggie Tracey DO Date Dictated: 01/26/16 1008 Date Transcribed: 01/26/161611 Fourth Grade Teacher: Signed 05-Dec-2015 Chest 1 View (Portable) Result: Comments: See Note; NOTES: [facility] Imaging Services [address] [place] [address] Verdana 4d Chest 1 View (Portable) MR#: [id number] Acct: [id number] Name: MARICRUZ PEÑALOZA Rep #: [id number] : 1940 F 75 From: Yari Garcia MD PCP: Maggie Tracey DO Status: PRE ER Study: Chest 1 View (Portable) Date of Exam: 12/05/15 Exam# [id number] Ordering Dr: Johnnie Baez MD STUDY: X-RAY CHEST REASON FOR EXAM: Female, 75 years old. Chest pain tightness TECHNIQUE: Single AP portable view of the chest. COMPARISON: September 07, 2015 chest x-ray __ FINDINGS: The lungs are underexpanded. The lung markings appear relatively stable. There is no demonstrated pleural abnormality. There is mild cardiac enlargemen t. Normal mediastinum and pete. Normal visualized pulmonary arteries. Normal visualized aortic arch and descending thoracic aorta. Normal visualized thoracic spine. Normal visualized ribs, clavicles , and shoulders. There is no demonstrated abnormality of the visualized soft tissue structures of the upper abdomen. IMPRESSION: Underexpansion of the lungs. Mild to moderate cardiomegaly. Electronically Signed: Yari Garcia MD at 16:44 EDT Tel , Service support [phone], RAD/Chest 1 V iew (Portable) IMPRESSION: Underexpansion of the lungs. Mild to moderate cardiomegaly. Electronically Signed: Yari Garcia MD at 16:44 EDT Tel , Service support , CC: Maggie Tracey DO; Johnnie Baez MD Fourth Grade Teacher: Signed 05-Dec-2015 Spirometry (92205) Comments: good effort and curvenormal Result: 05-Dec-2015 EKG (05808) Comments: ekg showed normal sinus rhythym, normal axis, no acute st/t wave changes Result: [MEASUREMENTS ANALYSIS] Date of Test: 12/05/2015 14:27:41; Heart Rate: 93; TX Interval: 202; QRS: 96; QT Interval: 352; Corrected QT Interval (QTc): 409; P Wave [place]: 48; QRS Wave [place]: -26; T Wave [place] : 55; Blood Pressure: 134/64 [ECG DIAGNOSTIC STATEMENTS] Date of Test: 12/05/2015 14:27:41; Summary: Sinus Rhythm WITHIN NORMAL LIMITS 21-Sep-2015 12 Lead Electrocardiogram Result: Comments: See Note; NOTES: [facility] Cardiovascular Services [address] [place] [address] 12 Lead EKG 09/19/15 0908 MR#: [id number] Acct: [id number] Name: MARICRUZ VIGIL Rep #: [id number] : 1940 75 From: Maurilio Meraz MD Attending Dr: Status: DEP ER Ordering Dr: Johnnie Baez MD Date: 09/19/15 Location: ED Sex: F C Admitted: Test Reason : Blood Pressure : / mmHG Vent. Rate : 112 BPM Atrial Rate : 112 BPM P-R Int : 190 ms QRS Dur : 086 ms QT Int : 324 ms P-R-T Axes : 052 -27 052 degrees QTc Int : 442 ms Sinus tac hycardia Leftward axis Poor R wave progression Confirmed by SOLEDAD STREETER, MAURILIO ([id number]), restaurant expeditor STACY CARTER ([id number]) on 09/21/2015 11:27:40 AM Referred By: JE Confirmed By:MAURILIO MERAZ MD 1127 Date Maurilio Meraz MD CC: Maggie Tracey DO Date Dictated: 09/19/15907 Date Transcribed: 09/19/15907 Fourth Grade Teacher: Signed 19-Sep-2015 Discharge Instruction Result: Comments: See Note; NOTES: [facility] Medical Records Department [address] [place] [address] Discharge Instruction 09/19/15 1020 MR#: [id number] Acct: [id number] Name: MARICRUZ GRIGSBY Rep #: [id number] : 1940 75 From: Johnnie Baez MD PCP: Maggie Tracey DO Status: DEP ER ED Disposition - Plan for ED Patient: Disposition: Home or Assiste d Living Chief Complaint: Nausea/Vomiting/Diarrhea Instructions: ED VIRAL GASTROENT (6 yr - Adult) Prescriptions: Ondansetron [Zofran Odt] 4 mg PO Q8H PRN PRN #7 tablet PRN Reason: Nausea Referral s: Maggie Tracey DO [Primary Care Provider] - 1-2 Days if not improving Additional Instructions: PLENTY OF FLUIDS AND REST FOLLOW UP WITH YOUR DR IF NOT GETTING BETTER BLAND DIET AND INCREASE TO LERATED ZOFRAN NEEDED FOR NAUSEA What to do if you have Problems For any increased pain, shortness of breath, bleeding, nausea or vomiting, chest pain, or any unexpected problems, contact [facility] doctor. Call [facility] ([phone]) or report to the closest Emergency Room. Call 911 if necessary. 09/19/15 1755 <Electronically signed by Johnnie Baez MD> Date __ Johnnie Baez MD Cosigner Signature (If Indicated): Date CC: Maggie Tracey DO 19-Sep-2015 Emergency Department Summary Result: Comments: See Note; NOTES: [facility] Medical Records Department [address] [facility] [place] [address] Emergency Department Summary MR#: [id number] Acct: [id number] Name: MARICRUZ GRIGSBY Rep #: [id number] : 1940 75 From: Johnnie Baez MD PCP: Maggie Tracey DO Status: DEP ER DATE OF SERVICE: 09/19/2015 CHIEF COMPLAINT: Nausea, vomiting, diarrhea. HISTORY OF PRESENT ILLNESS: A 75-year-old female, 1-day history of nausea, vomiting, diarrhea that started yesterday. No fever. She says she feels dry. She denies any melena. Of note, she is diabetic . PHYSICAL EXAMINATION: GENERAL: A 75-year-old female. VITAL SIGNS: Stable, afebrile. She is tachycardic at 125. HEENT: Unremarkable other than dry mucous membranes. NECK: Nontender. LUNGS: Clear . HEART: Regular rhythm. Rate about 110-115. No murmur. Chest wall nontender. ABDOMEN: Soft. Normal bowel sounds. Nondistended. No peritoneal signs. Nontender. Both the right upper and right lower qu adrants are unremarkable. EXTREMITIES: Moves all 4. Calves nontender. No edema. No cords. NEUROLOGICAL: She is awake, alert. She is answering questions. She is actively vomiting into an emesis bag. EMERGENCY DEPARTMENT COURSE: Elderly female, suspect viral gastroenteritis, probably dehydrated. TEST RESULTS: EKG is sinus tachycardia at 112. No acute signs of KS or ischemia. White count 11.4, H and H of 12 and 40, no bands. Electrolytes unremarkable. BUN of 22, creatinine 1.18. Normal gap, glucose of 225. She is diabetic. Repeat exam, the patient is doing much better. She has received a li ter of normal saline, Zofran. She has been able to hold down water and she will be reassessed. Currently, she is doing well at 10:16. She wants to try eat some applesauce. If she is able to hold down water comfortable with her being discharged to home. IMPRESSION: 1. Nausea, vomiting, diarrhea secondary to viral gastroenteritis. 2. Dehydration. PLAN: Discharge to home. Follow up with Dr. Rose hinojosa. The patient will be discharged with prescription for Zofran. MD Marcelle Cardona C: Maggie Tracey DO T: CHERI JOB: [id number] 09/19/15 4967 <Electronically signed by Johnnie Baez MD& amp;#62; Date Johnnie Baez MD Cosigner Signature (If Indicated): Date CC: Maggie Tracey DO Date Dictated: 09/19/15 1019 Date Transcribed: 09/19/151018 Fourth Grade Teacher: Signed 07-Sep-2015 Chest PA and Lateral Result: Comments: See Note; NOTES: [facility] Imaging Services [address] [place] [address] Verdana 4d Chest PA and Lateral MR#: [id number] Acct: [id number] Name: MARICRUZ HADLEY Rep #: [id number] : 1940 F 75 From: Kali Raymundo MD PCP: Maggie Tracey DO Status: REG CLI Study: Chest PA and Lateral Date of Exam: 09/07/15 Exam# [id number] Ordering Dr: Maggie Irwin DO STUDY: X-RAY CHEST REASON FOR EXAM: Female, 75 years old. Wheezing. History of asthma TECHNIQUE: PA and lateral views of the chest. COMPARISON: Prior chest x-rays from 09-13-14. FINDINGS: There are interstitial changes in both lungs, prominent on the right There is no demonstrated pleural abnormality. There is moderate cardiac enlargem ent. Normal mediastinum and pete. Normal visualized pulmonary arteries. Normal visualized aortic arch and descending thoracic aorta. There is thoracic levoscoliosis. There are old right rib fracture s. There is no demonstrated abnormality of the visualized soft tissue structures of the upper abdomen. IMPRESSION: No significant changes. Stable moderate card iomegaly. Bilateral interstitial changes more prominent on the right. Electronically Signed: Kali Raymundo MD, FACR at 11:41 EST , Service support [phone], RAD/Chest PA and Lateral IMPRESSION: No significant changes. Stable moderate cardiomegaly. Bilateral interstitial changes more prominent on the right. Wanda velazquez Signed: Kali Raymundo MD, FACR at 11:41 EST , Service support [phone], CC: Maggie Tracey DO Fourth Grade Teacher: Signed 07-Sep-2015 Spirometry (87198) Comments: good effort and curve normal Result: 24-Mar-2015 PT Discharge Summary Result: Comments: See Note; NOTES: [facility] Physical Therapy [facility] [address] [place] [address] Fax REHABILITATION SERVICES DISCHARGE SUMMARY MR#: [id number] Acct: [id number] Name: MARICRUZ GRIGSBY Rep #: [id number] : 1940 75 From: Yuni Clark Referring Dr.: Maggie Tracey DO Status: DIS RCR Eval Date: Discharge Date: 03/18/15 DATE OF SERVICE: This patient was referred to physical therapy by Dr. Tracey with a diagnosis of low back pain with radiculopathy. She has been seen in our clinic times a total of 10 visits. Her physical therapy has mainly consisted of ultrasound, manual therapy, moist heat and very gentle exercise. She refused most exercise due to fear of increasing the pain. Upon p resentation to physical therapy today, she reports 99% improvement. She states her legs do get tired, but she does not have pain. She denies back and leg pain. Upon assessment, she ambulates independe ntly into physical therapy at a brisk pace with good balance and mobility. She is able to demonstrate good posture control without complaint of pain. Lumbar movement loss is as follows: Flexion -- min imal, extension -- moderate, bilateral side gliding minimal to moderate. She denies pain with lumbar range of motion testing in all planes. Bilateral lower extremity strength is 5/5 with manual muscle testing. She is no longer tender with palpation in the lumbar or sacral regions. Oswestry equals 0%, G8979 CJ, G8980 CH. I am discharging her at this time and she is agreeable to discharge. Yuni Clark, PT T: NTS JOB: [id number] <Electronically signed by Yuni Clark > 03/24/15 1227 CC: Maggie Tracey DO Signed 17-Feb-2015 Inital Evaluation - PT Result: Comments: See Note; NOTES: [facility] Physical [facility] [address] [place] [address] Fax REHABILITATION SERVICES INITIAL EVALUATION MR#: [id number] Acct: [id number] Name: MARICRUZ GRIGSBY Rep #: [id number] : 1940 75 From: Yuni Clark Referring Dr.: Maggie Tracey DO Status: REG RCR Insurance : MEDICARE PART A B Eval Date: [facility] DATE OF SERVICE: 02/16/2015 SUBJECTIVE: This patient was referred to physical therapy by Dr. Maggie Tracey with chief complaint of back and bilatera l lower extremity symptoms severely limiting her standing and walking function. She reports that it hurts in the back of her legs to walk. She reports that it is better, but not gone since stopping Cr estor. She reports that she has to bend over to walk and she does not want to do that. She reports that Dr. Tracey had her do x-rays of her back and they revealed a lot of arthritis. She has increased p ain with standing and walking and decreased pain in sitting. The pain goes away in sitting, but gets up to a 9/10 at its worst. PAST MEDICAL HISTORY: Significant for CVA 4 years ago, polio as a chi ld, depression, GERD, arthritis, type 2 diabetes, hypothyroidism, hyperlipidemia, vitamin B12 and D deficiencies and low back pain with radiculopathy. OBJECTIVE: This patient ambulates independentl y into physical therapy with a slow antalgic gait pattern and increased trunk flexion. Her pain alleviates almost immediately upon sitting. Bilateral lower extremity light touch sensation appears to be intact and symmetrical. Bilateral lower extremity reflexes are 2/2. Bilateral lower extremity strength is 5/5 with manual muscle testing. She has bilateral foot edema, which she reports she gets of f and on and it is a new. Her sitting posture is poor. Active correction of her sitting posture increases her pain. She has poor core strength. She has increased muscle tone with palpation of bilater al lumbar paraspinals and mild tenderness. She is only able to single leg stance times approximately 3 seconds on each leg and she states it hurts. She has tight bilateral hamstring and gastroc soleus complexes. Lumbar movement loss: Flexion -- moderate, extension -- major, bilateral side gliding -- moderate. She has poor standing tolerance. I did reinforce to her the benefits of sitting with lumbar support and she reports that she does try to do this. ASSESSMENT: This patient is a 75-year-old female with complaint of intermittent low back and bilateral lower extremity christy n limiting her standing and walking function. GOALS: 1. Decrease complaint of low back pain. 2. Decrease complaint of bilateral lower extremity pain. 3. Improve standing and walking function. 4. I nstruct in prophylaxis. PLAN: We plan to see this patient 3 times a week x10 visits for lumbar modalities as needed starting with soft tissue mobilization and ultrasound as indicated, lumbar and neeta ateral lower extremity range of motion, stretching and strengthening with dynamic lumbar stabilization exercise instruction as tolerated to help meet the above goals. She was agreeable with this plan of care. Yuni Clark, PT T: NTS JOB: [id number] <Electronically signed by Yuni Clark > 02/17/15 1011 CC: Signed For Medicare only, by seng yao this I certify the plan of care. Physicians Signature Date 08-Feb-2015 L/S Spine Min 4 Views Result: Comments: See Note; NOTES: [facility] Imaging Services [address] [place] [address] Radiology Report MR#: [id number] Acct: [id number] Name: CLIFFORD HOBBSMARICRUZ THORNE Rep #: [id number] : 1940 F 74 From: Teo Wayne MD PCP: Maggie Tracey DO Status: REG CLI Study: L/S Spine Min 4 Views Date of Exam: 02/08/15 Exam# [id number] Ordering Dr: Maggie Tracey DO STUDY: X-RAY - LUMBAR SPINE REASON FOR EXAM: Female, 74 years old. Bilateral leg pain. TECHNIQUE: 5 view(s) of the lumbar spine were obtained including oblique views. COMPARISON: None FINDINGS: Normal lumbar lordosis. There is no substantial scoliosis. There is a normal alignment of the vertebrae. Mild degree of anterior spondylosis. Marked degree of disc space narrowing at the L4-L5 level. Mild degree of disc space narrowing at the L2-L3 and L5-S1 levels. Facet joint osteoarthritis. There is atherosclerotic calcification of the abdominal aorta without a demonstrated aneurysm. IMPRESSION: Degenerative changes of the spine, as detailed above. Electronically Signed: Teo Wayne MD a t 12:30 EDT Tel [phone], Service support [phone], RAD/L/S Spine Min 4 Views IMPRESSION: Degenerative changes of the spine, as detailed above. Electro nically Signed: Teo Wayne MD at 12:30 EDT Tel [phone], Service support [phone], CC: Maggie Tracey DO Fourth Grade Teacher: Signed 15-Nov-2014 Thyroid Result: Comments: See Note; NOTES: [facility] Imaging Services [address] [place] [address] Ultrasound Report MR#: [id number] Acct: [id number] Name: MARICRUZ GRIGSBY Rep #: [id number] : 1940 F 74 From: Julián Trivedi DO PCP: Maggie Tracey DO Status: REG CLI Study: Thyroid Date of Exam: 11/15/14 Exam# [id number] Ordering Dr: Maggie Tracey DO STUDY: THYROID ULTRA SOUND REASON FOR EXAM: Female, 74 years old. Thyromegaly. TECHNIQUE: Ultrasound evaluation of the thyroid was performed with real-time and static anderson-scale imaging. COMPARISON: None. FINDINGS: RIGHT LOBE: The right lobe of the thyroid gland measures 2.4 x 0.9 x 0.8 cm. There is a heterogeneous echotexture. There are no demonstrated solid, cystic or co mplex lesions. There is normal vascularity on color Doppler imaging. LEFT LOBE: The left lobe of the thyroid gland measures 2.4 x 0.9 x 0.6 cm. There is a heterogeneous echotexture. There are no dem onstrated solid, cystic or complex lesions. There is normal vascularity on color Doppler imaging. ISTHMUS: The isthmus measures 0.2 cm. The regional lymph nodes are normal. IMPRESSION: Small thyroid without evidence of nodules. Electronically Signed: Julián Trivedi DO at 16:51 EDT Tel [phone], Service support [phone], Fax CC: Maggie Tracey DO Fourth Grade Teacher: Signed 13-Sep-2014 Chest PA and Lateral Result: Comments: See Note; NOTES: [facility] Imaging Services [address] [place] [address] Radiology Report MR#: [id number] Acct: [id number] Name: MARICRUZ GRIGSBY Rep #: [id number] : 1940 F 74 From: Donato Abdi MD PCP: Maggie Tracey DO Status: REG CLI Study: Chest PA and Lateral Date of Exam: 09/13/14 Exam# [id number] Ordering Dr: Maggie Tracey DO STUDY: X -RAY CHEST REASON FOR EXAM: Female, 74 years old. Cough TECHNIQUE: Frontal and lateral views of the chest. COMPARISON: July 15, 2014 FINDINGS: The lung s are clear and expanded. There is no demonstrated pleural abnormality. Normal size heart. Normal mediastinum and pete. Normal visualized pulmonary arteries. Normal visualized aortic arch and descen ding thoracic aorta. There is a levoscoliosis of the thoracic spine. Healed fractures are noted in the right sixth and seventh ribs. There is no demonstrated abnormality of the visualized soft tis reggie structures of the upper abdomen. IMPRESSION: There is no evidence of acute chest disease. Electronically Signed: Thierry Abdi MD at 12:01 EST Tel , Service support [phone], CC: Maggie Tracey DO Fourth Grade Teacher: Signed 15-Jul-2014 Chest PA and Lateral Result: Comments: See Note; NOTES: [facility] Imaging Services [address] [place] [address] Radiology Report MR#: [id number] Acct: [id number] Name: CLIFFORD CRUZJAQUANMARICRUZ Rep #: [id number] : 1940 F 74 From: Teo Wayne MD PCP: Maggie Tracey DO Status: REG CLI Study: Chest PA and Lateral Date of Exam: 07/15/14 Exam# [id number] Ordering Dr: Maggie Tracey DO SANDI DY: X-RAY CHEST REASON FOR EXAM: Female, 74 years old. Wheezing. TECHNIQUE: PA and lateral views of the chest. COMPARISON: Comparison is made with prior study dated December 01, 2012. FINDINGS: There is elevation of the right hemidiaphragm. There is evidence of increased interstitial markings in the perihilar regions bilaterally suggestive of bronchitis. No f ocal consolidation is seen. There is no demonstrated pleural abnormality. Normal size heart. Normal mediastinum and pete. Normal visualized pulmonary arteries. There is atherosclerotic tortuosity of the aortic arch and descending thoracic aorta. There are diffuse degenerative changes of the visualized thoracic spine. Levoscoliosis. There is healed right rib fractures. There is no demonstrate d abnormality of the visualized soft tissue structures of the upper abdomen. IMPRESSION: Elevation of the right hemidiaphragm. Findings in keeping with the para hilar bronchitis. Electronically Signed: Teo Wayne MD at 9:42 EST Tel [phone], Service support [phone], CC: Maggie Tracey DO Fourth Grade Teacher: Signed 10-May-2014 Bilat Scrn Digital & CAD Result: Comments: See Note; NOTES: [facility] Imaging Services [address] [place] [address] Breast Imaging Report MR#: [id number] Acct: [id number] Name: JOSE AMARICRUZ GIANG ep #: [id number] : 1940 F 74 From: Gene Phillips PCP: Maggie Tracey DO Status: REG CLI Exam# [id number] Ordering Dr: Maggie Tracey DO MAMMOGRAPHY - BILATERAL SCREENING REASON FOR EXAM: Female , 74 years old. Routine annual screening examination. PERTINENT HISTORY: Non- contributory. TECHNIQUE: Digital examination. Mediolateral oblique (MLO) and craniocaudad (CC) views of both breasts we re obtained. CAD: CAD was performed on this study. COMPARISON: 11/18/2012 FINDINGS: Breast Composition: There are scattered areas of fibroglandular density. B ilaterally benign calcifications and multiple stable axillary/axillary tail lymph nodes are seen. There is stable glandular asymmetry of the breast. There are no dominant masses or suspicious calcif ications. No other significant abnormalities are identified. There has been no significant change since the prior study. IMPRESSION: Stable bilateral screening mammogram. Yearly follow-up recommended. (A) ASSESSMENT CATEGORY: BIRADS Category 2: Benign finding(s). A letter regarding these results will be sent to the [facility] ient by the facility within 30 days. Approximately 10% of breast cancers are not detected by mammography. A normal mammogram should not delay biopsy of a clinically suspicious abnormality. 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 Osteopenia. TECHNIQUE: Bone Mineral Density (BMD) measurements of lumbar spine and bilateral hips were o btained. COMPARISON: Comparison is made with prior study dated September 18, 2011. FINDINGS: Lumbar Spine (L1-L4): g/cm2 (1.119) / T-score (-0.4) / Z-score (1.3 ) Findings are suggestive of normal bone density with a low fracture risk. Left Femur Total: g/cm2 (1.108) / T-score (0.8) / Z-score (2.4) Left Femoral Neck: g/cm2 (0.949) / T-score (-0.6) / Z-score (1.2) Right Femur Total: g/cm2 (0.970) / T-score (-0.3) / Z-score (1.3) Right Femoral Neck: g/cm2 (0.821) / T-score (-1.6) / Z-score (0.2) The T-Scores on the most recent prior examination were: Lumbar Spine (L1-L4): There has been improvement of bone density since the previous examination. Left Femur Total: which represents an improvement of 1.2%. Right Femur Total: which represents an imp rovement of 0.9%. IMPRESSION: The patient is considered osteopenic at the level of the right proximal femur as outlined below according to World [employer] on (WHO) criteria with a low fracture risk. There has been improvement of bone density since the previous examination. Reference Information: The T-score is th e number of standard deviations above or below the standard which is normal for young adults at their peak bone mineral density. The World Health Organization (WHO) interprets the T-scores as follows : Above -1 Normal bone density Between -1 and -2.5 Osteopenia Equal to / or below -2.5 Osteoporosis As a practical clinical guideline, osteopenia may be graded as follows: Mild -1 through -1.5 M oderate -1.6 through -2.0 Severe -2.1 through -2.4 The Z-score is the number of standard deviations above or below age-matched controls. A Z-score of less than -1.5 would be considered abnormal. R eferences: 1. NIH Osteoporosis and Related Bone Diseases http://www.osteo.org 2. International Society for Clinical Densitometry http://www.iscd.org 3. National Osteoporosis Foundation http://www.nof .org Electronically Signed: Teo Wayne M.D. at 11:04 EST , Service support [phone], CC: Maggie Tracey DO Fourth Grade Teacher: Signed Immunization Name Dates Details Influenza (3 years and up) on: 04-Jun-2007 Comments: Lot #: [id number] date: 01/03Amount given: 0.5 MLRoute: IMSite given: Left deltoidGiven by: Nathaniel Beal LPN Influenza (3 years and up) on: 12-May-2009 Comments: Lot #[id number] deltoidgiven by:CDH Family History Unknown Family Member Name Dates Details Cancer Status: Active Diabetes Mellitus Status: Active Father Comments: [place], hypercholesterolemia Status: Active First Degree Relatives Comments: Aunt - cancer Status: Active Heart Disease Status: Active Hypercholesterolemia Status: Active Hypertension Status: Active Mother Comments: HTN, DM, CAD Status: Active Sister 1 Comments: DM Status: Active Social History Name Dates Details Current Work/Study Status Comments: Retired Status: Active Living Situation Comments: Status: Active No Drug Use Status: Active Non Drinker/No Alcohol Use Status: Active Non Smoker/No Tobacco Use Status: Active Tobacco use: Never smoker. Status: Active Tobacco use: Never smoker. Status: Active Smoking Status Name Dates Details Never smoker Vital Signs Date Test Result Details :46 Temperature 97.8 f Comments: Method: Temporal Pulse 72 /min Comments: Pattern: Regular Respiration Rate 16 /min Comments: Pattern: Unlabored O2 SAT 97 % Comments: Room air BP Systolic 120 mm[Hg] Comments: Patient Position: Sitting; Cuff Location: Left Arm; Cuff Size: Standard BP Diastolic 66 mm[Hg] Comments: Patient Position: Sitting; Cuff Location: Left Arm; Cuff Size: Standard Weight 207 lb Height 65 in Body Mass Index Calculated 34.45 kg/m2 Body Surface Area Calculated 2.01 m2 :03 Temperature 98.5 f Comments: Method: Temporal Pulse 84 /min Comments: Pattern: Regular Respiration Rate 16 /min Comments: Pattern: Unlabored O2 SAT 98 % Comments: Room air BP Systolic 134 mm[Hg] Comments: Patient Position: Sitting; Cuff Location: Left Arm; Cuff Size: Standard BP Diastolic 80 mm[Hg] Comments: Patient Position: Sitting; Cuff Location: Left Arm; Cuff Size: Standard Weight 207 lb Height 65 in Body Mass Index Calculated 34.45 kg/m2 Body Surface Area Calculated 2.01 m2 :05 Pulse 74 /min Comments: Pattern: Regular Respiration Rate 18 /min Comments: Pattern: Unlabored O2 SAT 97 % Comments: Room air BP Systolic 120 mm[Hg] Comments: Patient Position: Sitting; Cuff Location: Left Arm; Cuff Size: Large BP Diastolic 62 mm[Hg] Comments: Patient Position: Sitting; Cuff Location: Left Arm; Cuff Size: Large Weight 207 lb Height 65 in Body Mass Index Calculated 34.45 kg/m2 Body Surface Area Calculated 2.01 m2 :19 Temperature 97.3 f Comments: Method: Temporal Pulse 78 /min Comments: Pattern: Regular Respiration Rate 20 /min Comments: Pattern: Unlabored O2 SAT 95 % Comments: Room air BP Systolic 124 mm[Hg] Comments: Patient Position: Sitting; Cuff Location: Left Arm; Cuff Size: Large BP Diastolic 80 mm[Hg] Comments: Patient Position: Sitting; Cuff Location: Left Arm; Cuff Size: Large Weight 220 lb Height 65 in Body Mass Index Calculated 36.61 kg/m2 Body Surface Area Calculated 2.06 m2 :57 Pulse 78 /min Comments: Pattern: Regular Respiration Rate 18 /min Comments: Pattern: Unlabored O2 SAT 98 % Comments: Room air BP Systolic 136 mm[Hg] Comments: Patient Position: Sitting; Cuff Location: Left Arm; Cuff Size: Large BP Diastolic 70 mm[Hg] Comments: Patient Position: Sitting; Cuff Location: Left Arm; Cuff Size: Large Weight 220 lb Height 65 in Body Mass Index Calculated 36.61 kg/m2 Body Surface Area Calculated 2.06 m2 :39 Pulse 80 /min Comments: Pattern: Regular Respiration Rate 18 /min Comments: Pattern: Unlabored O2 SAT 97 % Comments: Room air BP Systolic 134 mm[Hg] Comments: Patient Position: Sitting; Cuff Location: Left Arm; Cuff Size: Large BP Diastolic 66 mm[Hg] Comments: Patient Position: Sitting; Cuff Location: Left Arm; Cuff Size: Large Weight 220 lb Height 65 in Body Mass Index Calculated 36.61 kg/m2 Body Surface Area Calculated 2.06 m2 :12 Temperature 97.5 f Pulse 70 /min Comments: Pattern: Regular Respiration Rate 17 /min Comments: Pattern: Unlabored O2 SAT 97 % Comments: Room air BP Systolic 138 mm[Hg] Comments: Patient Position: Sitting; Cuff Location: Left Arm; Cuff Size: Standard BP Diastolic 68 mm[Hg] Comments: Patient Position: Sitting; Cuff Location: Left Arm; Cuff Size: Standard Weight 220 lb Height 65 in Body Mass Index Calculated 36.61 kg/m2 Body Surface Area Calculated 2.06 m2 [id number] Pulse 81 /min Comments: Pattern: Regular Respiration Rate 18 /min Comments: Pattern: Unlabored O2 SAT 97 % Comments: Room air BP Systolic 142 mm[Hg] Comments: Patient Position: Sitting; Cuff Location: Left Arm; Cuff Size: Large BP Diastolic 68 mm[Hg] Comments: Patient Position: Sitting; Cuff Location: Left Arm; Cuff Size: Large Weight 220 lb Height 65 in Body Mass Index Calculated 36.61 kg/m2 Body Surface Area Calculated 2.06 m2 [id number] Temperature 97.6 f Comments: Method: Temporal Pulse 94 /min Comments: Pattern: Regular Respiration Rate 20 /min Comments: Pattern: Unlabored O2 SAT 97 % Comments: Room air BP Systolic 124 mm[Hg] Comments: Patient Position: Sitting; Cuff Location: Left Arm; Cuff Size: Large BP Diastolic 78 mm[Hg] Comments: Patient Position: Sitting; Cuff Location: Left Arm; Cuff Size: Large Weight 220 lb Height 65 in Body Mass Index Calculated 36.61 kg/m2 Body Surface Area Calculated 2.06 m2 :13 Temperature 98.2 f Comments: Method: Temporal Pulse 72 /min Comments: Pattern: Regular Respiration Rate 18 /min Comments: Pattern: Unlabored O2 SAT 96 % Comments: Room air BP Systolic 138 mm[Hg] Comments: Patient Position: Sitting; Cuff Location: Left Arm; Cuff Size: Large BP Diastolic 80 mm[Hg] Comments: Patient Position: Sitting; Cuff Location: Left Arm; Cuff Size: Large Weight 220 lb Height 65 in Body Mass Index Calculated 36.61 kg/m2 Body Surface Area Calculated 2.06 m2 :54 Pulse 76 /min Comments: Pattern: Regular Respiration Rate 18 /min Comments: Pattern: Unlabored O2 SAT 95 % Comments: Room air BP Systolic 148 mm[Hg] Comments: Patient Position: Sitting; Cuff Location: Left Arm; Cuff Size: Large BP Diastolic 80 mm[Hg] Comments: Patient Position: Sitting; Cuff Location: Left Arm; Cuff Size: Large Weight 220 lb Height 65 in Body Mass Index Calculated 36.61 kg/m2 Body Surface Area Calculated 2.06 m2 [id number] Comments: orthostatic bp assessment: 12:10pmlying- 170/90 76hrsitting- 143/79 80hrstanding- 145/85 82hr Temperature 98.9 f Comments: Method: Temporal Pulse 78 /min Comments: Pattern: Regular Respiration Rate 18 /min Comments: Pattern: Unlabored O2 SAT 94 % Comments: Room air BP Systolic 148 mm[Hg] Comments: Patient Position: Sitting; Cuff Location: Left Arm; Cuff Size: Large BP Diastolic 82 mm[Hg] Comments: Patient Position: Sitting; Cuff Location: Left Arm; Cuff Size: Large Weight 220 lb Height 65 in Body Mass Index Calculated 36.61 kg/m2 Body Surface Area Calculated 2.06 m2 :29 Comments: Dr. Reyes and had a glauocma test donehearing wnl Pulse 68 /min Comments: Pattern: Regular Respiration Rate 18 /min Comments: Pattern: Unlabored O2 SAT 95 % Comments: Room air BP Systolic 130 mm[Hg] Comments: Patient Position: Sitting; Cuff Location: Left Arm; Cuff Size: Large BP Diastolic 62 mm[Hg] Comments: Patient Position: Sitting; Cuff Location: Left Arm; Cuff Size: Large Weight 217 lb Height 65 in Body Mass Index Calculated 36.11 kg/m2 Body Surface Area Calculated 2.05 m2 :37 Pulse 74 /min Comments: Pattern: Regular Respiration Rate 18 /min Comments: Pattern: Unlabored O2 SAT 98 % Comments: Room air BP Systolic 128 mm[Hg] Comments: Patient Position: Sitting; Cuff Location: Left Arm; Cuff Size: Large BP Diastolic 78 mm[Hg] Comments: Patient Position: Sitting; Cuff Location: Left Arm; Cuff Size: Large Weight 213 lb Height 65 in Body Mass Index Calculated 35.44 kg/m2 Body Surface Area Calculated 2.03 m2 :12 Weight 213 lb Height 65 in Body Mass Index Calculated 35.44 kg/m2 Body Surface Area Calculated 2.03 m2 :51 Comments: re check 142/80 Pulse 71 /min Comments: Pattern: Regular Respiration Rate 18 /min Comments: Pattern: Unlabored O2 SAT 96 % Comments: Room air BP Systolic 148 mm[Hg] Comments: Patient Position: Sitting; Cuff Location: Left Arm; Cuff Size: Standard BP Diastolic 70 mm[Hg] Comments: Patient Position: Sitting; Cuff Location: Left Arm; Cuff Size: Standard Weight 213 lb Height 65 in Body Mass Index Calculated 35.44 kg/m2 Body Surface Area Calculated 2.03 m2 :32 Pulse 79 /min Comments: Pattern: Regular O2 SAT 94 % Comments: Room air BP Systolic 162 mm[Hg] Comments: Patient Position: Sitting; Cuff Location: Left Arm; Cuff Size: Large BP Diastolic 82 mm[Hg] Comments: Patient Position: Sitting; Cuff Location: Left Arm; Cuff Size: Large Weight 213 lb Height 65 in Body Mass Index Calculated 35.44 kg/m2 Body Surface Area Calculated 2.03 m2 :01 Pulse 81 /min Comments: Pattern: Regular Respiration Rate 18 /min Comments: Pattern: Unlabored O2 SAT 96 % Comments: Room air BP Systolic 142 mm[Hg] Comments: Patient Position: Sitting; Cuff Location: Left Arm BP Diastolic 70 mm[Hg] Comments: Patient Position: Sitting; Cuff Location: Left Arm Weight 208.0625 lb Height 65 in Body Mass Index Calculated 34.62 kg/m2 Body Surface Area Calculated 2.01 m2 :36 Pulse 80 /min Comments: Pattern: Regular Respiration Rate 18 /min Comments: Pattern: Unlabored O2 SAT 97 % Comments: Room air BP Systolic 138 mm[Hg] Comments: Patient Position: Sitting; Cuff Location: Left Arm; Cuff Size: Large BP Diastolic 64 mm[Hg] Comments: Patient Position: Sitting; Cuff Location: Left Arm; Cuff Size: Large Weight 208.0625 lb Height 65 in Body Mass Index Calculated 34.62 kg/m2 Body Surface Area Calculated 2.01 m2 :47 Pulse 79 /min Comments: Pattern: Regular Respiration Rate 18 /min Comments: Pattern: Unlabored O2 SAT 95 % Comments: Room air BP Systolic 124 mm[Hg] Comments: Patient Position: Sitting; Cuff Location: Left Arm; Cuff Size: Large BP Diastolic 82 mm[Hg] Comments: Patient Position: Sitting; Cuff Location: Left Arm; Cuff Size: Large Weight 208.0625 lb Height 65 in Body Mass Index Calculated 34.62 kg/m2 Body Surface Area Calculated 2.01 m2 :19 Pulse 78 /min Comments: Pattern: Regular Respiration Rate 18 /min Comments: Pattern: Unlabored O2 SAT 97 % Comments: Room air BP Systolic 132 mm[Hg] Comments: Patient Position: Sitting; Cuff Location: Left Arm; Cuff Size: Large BP Diastolic 62 mm[Hg] Comments: Patient Position: Sitting; Cuff Location: Left Arm; Cuff Size: Large Weight 208.0625 lb Height 65 in Body Mass Index Calculated 34.62 kg/m2 Body Surface Area Calculated 2.01 m2 :06 Temperature 97.2 f Comments: Method: Temporal Pulse 74 /min Comments: Pattern: Regular Respiration Rate 16 /min Comments: Pattern: Unlabored O2 SAT 98 % Comments: Room air BP Systolic 138 mm[Hg] Comments: Patient Position: Sitting; Cuff Location: Left Arm; Cuff Size: Standard BP Diastolic 78 mm[Hg] Comments: Patient Position: Sitting; Cuff Location: Left Arm; Cuff Size: Standard Weight 215 lb Height 65 in Body Mass Index Calculated 35.78 kg/m2 Body Surface Area Calculated 2.04 m2 :27 Pulse 83 /min Comments: Pattern: Regular Respiration Rate 18 /min O2 SAT 94 % Comments: Room air BP Systolic 128 mm[Hg] Comments: Patient Position: Sitting; Cuff Location: Left Arm; Cuff Size: Standard BP Diastolic 80 mm[Hg] Comments: Patient Position: Sitting; Cuff Location: Left Arm; Cuff Size: Standard Weight 215 lb Height 65 in Body Mass Index Calculated 35.78 kg/m2 Body Surface Area Calculated 2.04 m2 :04 Pulse 68 /min Comments: Pattern: Regular Respiration Rate 18 /min Comments: Pattern: Unlabored O2 SAT 98 % Comments: Room air BP Systolic 128 mm[Hg] Comments: Patient Position: Sitting; Cuff Location: Left Arm; Cuff Size: Standard BP Diastolic 82 mm[Hg] Comments: Patient Position: Sitting; Cuff Location: Left Arm; Cuff Size: Standard Weight 217 lb Height 65 in Body Mass Index Calculated 36.11 kg/m2 Body Surface Area Calculated 2.05 m2 :53 Weight 218 lb :27 Pulse 70 /min Comments: Pattern: Regular Respiration Rate 18 /min Comments: Pattern: Unlabored O2 SAT 95 % Comments: Room air BP Systolic 122 mm[Hg] Comments: Patient Position: Sitting; Cuff Location: Left Arm; Cuff Size: Large BP Diastolic 62 mm[Hg] Comments: Patient Position: Sitting; Cuff Location: Left Arm; Cuff Size: Large Weight 226.25 lb Height 64 in Body Mass Index Calculated 38.84 kg/m2 Body Surface Area Calculated 2.06 m2 :38 Comments: hearing wnlDr. Amy and herrera da glaucoma test done Pulse 75 /min Comments: Pattern: Regular Respiration Rate 18 /min Comments: Pattern: Unlabored O2 SAT 95 % Comments: Room air BP Systolic 120 mm[Hg] Comments: Patient Position: Sitting; Cuff Location: Left Arm; Cuff Size: Large BP Diastolic 62 mm[Hg] Comments: Patient Position: Sitting; Cuff Location: Left Arm; Cuff Size: Large Weight 226.25 lb Height 64 in Body Mass Index Calculated 38.84 kg/m2 Body Surface Area Calculated 2.06 m2 :40 Pulse 72 /min Comments: Pattern: Regular Respiration Rate 18 /min Comments: Pattern: Unlabored O2 SAT 96 % Comments: Room air BP Systolic 122 mm[Hg] Comments: Patient Position: Sitting; Cuff Location: Left Arm; Cuff Size: Large BP Diastolic 78 mm[Hg] Comments: Patient Position: Sitting; Cuff Location: Left Arm; Cuff Size: Large Weight 223.375 lb Height 64 in Body Mass Index Calculated 38.34 kg/m2 Body Surface Area Calculated 2.05 m2 :11 Pulse 70 /min Comments: Pattern: Regular Respiration Rate 18 /min Comments: Pattern: Unlabored O2 SAT 97 % Comments: Room air BP Systolic 116 mm[Hg] Comments: Patient Position: Sitting; Cuff Location: Left Arm; Cuff Size: Large BP Diastolic 62 mm[Hg] Comments: Patient Position: Sitting; Cuff Location: Left Arm; Cuff Size: Large Weight 223.375 lb Height 64 in Body Mass Index Calculated 38.34 kg/m2 Body Surface Area Calculated 2.05 m2 :02 Pulse 83 /min Comments: Pattern: Regular Respiration Rate 18 /min Comments: Pattern: Unlabored O2 SAT 98 % Comments: Room air BP Systolic 122 mm[Hg] Comments: Patient Position: Sitting; Cuff Location: Left Arm; Cuff Size: Large BP Diastolic 78 mm[Hg] Comments: Patient Position: Sitting; Cuff Location: Left Arm; Cuff Size: Large Weight 223.375 lb Height 64 in Body Mass Index Calculated 38.34 kg/m2 Body Surface Area Calculated 2.05 m2 :04 Temperature 97.6 f Comments: Method: Temporal Pulse 78 /min Comments: Pattern: Regular Respiration Rate 16 /min Comments: Pattern: Unlabored O2 SAT 98 % Comments: Room air BP Systolic 122 mm[Hg] Comments: Patient Position: Sitting; Cuff Location: Left Arm; Cuff Size: Large BP Diastolic 70 mm[Hg] Comments: Patient Position: Sitting; Cuff Location: Left Arm; Cuff Size: Large Height 64 in :56 Comments: bp recheck- administered 81mg asa orally at this time also-[facility] BP Systolic 156 mm[Hg] Comments: Patient Position: Sitting; Cuff Location: Left Arm; Cuff Size: Large BP Diastolic 74 mm[Hg] Comments: Patient Position: Sitting; Cuff Location: Left Arm; Cuff Size: Large :51 Temperature 99.2 f Comments: Method: Temporal Pulse 96 /min Comments: Pattern: Regular Respiration Rate 17 /min Comments: Pattern: Unlabored O2 SAT 97 % Comments: Room air BP Systolic 134 mm[Hg] Comments: Patient Position: Sitting; Cuff Location: Left Arm; Cuff Size: Standard BP Diastolic 64 mm[Hg] Comments: Patient Position: Sitting; Cuff Location: Left Arm; Cuff Size: Standard Weight 202 lb Height 64 in Body Mass Index Calculated 34.67 kg/m2 Body Surface Area Calculated 1.96 m2 :59 Temperature 97.8 f Comments: Method: Temporal Pulse 78 /min Comments: Pattern: Regular Respiration Rate 18 /min Comments: Pattern: Unlabored O2 SAT 97 % Comments: Room air BP Systolic 138 mm[Hg] Comments: Patient Position: Sitting; Cuff Location: Left Arm; Cuff Size: Large BP Diastolic 78 mm[Hg] Comments: Patient Position: Sitting; Cuff Location: Left Arm; Cuff Size: Large Weight 215 lb Height 64 in Body Mass Index Calculated 36.9 kg/m2 Body Surface Area Calculated 2.02 m2 :08 Temperature 98.5 f Comments: Method: Temporal Pulse 76 /min Comments: Pattern: Regular Respiration Rate 16 /min Comments: Pattern: Unlabored O2 SAT 96 % Comments: Room air BP Systolic 120 mm[Hg] Comments: Patient Position: Sitting; Cuff Location: Left Arm; Cuff Size: Large BP Diastolic 70 mm[Hg] Comments: Patient Position: Sitting; Cuff Location: Left Arm; Cuff Size: Large Weight 215 lb Height 64 in Body Mass Index Calculated 36.9 kg/m2 Body Surface Area Calculated 2.02 m2 :21 Temperature 96.9 f Comments: Method: Tympanic Pulse 70 /min Comments: Pattern: Regular Respiration Rate 18 /min Comments: Pattern: Unlabored O2 SAT 98 % Comments: Room air BP Systolic 122 mm[Hg] Comments: Patient Position: Sitting; Cuff Location: Left Arm; Cuff Size: Standard BP Diastolic 78 mm[Hg] Comments: Patient Position: Sitting; Cuff Location: Left Arm; Cuff Size: Standard Weight 205 lb Height 64 in Body Mass Index Calculated 35.19 kg/m2 Body Surface Area Calculated 1.98 m2 :02 Temperature 97.9 f Comments: Method: Temporal Pulse 72 /min Comments: Pattern: Regular Respiration Rate 18 /min Comments: Pattern: Unlabored BP Systolic 120 mm[Hg] Comments: Patient Position: Sitting; Cuff Location: Left Arm; Cuff Size: Large BP Diastolic 62 mm[Hg] Comments: Patient Position: Sitting; Cuff Location: Left Arm; Cuff Size: Large Weight 199 lb Height 64 in Body Mass Index Calculated 34.16 kg/m2 Body Surface Area Calculated 1.95 m2 :39 Temperature 98.8 f Comments: Method: Tympanic Pulse 87 /min Comments: Pattern: Regular Respiration Rate 18 /min Comments: Pattern: Unlabored O2 SAT 98 % Comments: Room air BP Systolic 116 mm[Hg] Comments: Patient Position: Sitting; Cuff Location: Left Arm; Cuff Size: Standard BP Diastolic 64 mm[Hg] Comments: Patient Position: Sitting; Cuff Location: Left Arm; Cuff Size: Standard Weight 199 lb Height 64 in Body Mass Index Calculated 34.16 kg/m2 Body Surface Area Calculated 1.95 m2 :56 Temperature 98.5 f Comments: Method: Temporal Pulse 70 /min Comments: Pattern: Regular Respiration Rate 16 /min Comments: Pattern: Unlabored O2 SAT 95 % Comments: Room air BP Systolic 120 mm[Hg] Comments: Patient Position: Sitting; Cuff Location: Left Arm; Cuff Size: Large BP Diastolic 76 mm[Hg] Comments: Patient Position: Sitting; Cuff Location: Left Arm; Cuff Size: Large Weight 199 lb Height 64 in Body Mass Index Calculated 34.16 kg/m2 Body Surface Area Calculated 1.95 m2 :55 Temperature 97.8 f Comments: Method: Temporal Pulse 70 /min Comments: Pattern: Regular Respiration Rate 16 /min Comments: Pattern: Unlabored BP Systolic 140 mm[Hg] Comments: Patient Position: Sitting; Cuff Location: Left Arm; Cuff Size: Large BP Diastolic 74 mm[Hg] Comments: Patient Position: Sitting; Cuff Location: Left Arm; Cuff Size: Large Weight 197 lb Height 64 in Body Mass Index Calculated 33.81 kg/m2 Body Surface Area Calculated 1.94 m2 :17 Temperature 97.5 f Comments: Method: Oral Pulse 64 /min Comments: Pattern: Regular Respiration Rate 17 /min Comments: Pattern: Unlabored BP Systolic 128 mm[Hg] Comments: Patient Position: Sitting; Cuff Location: Left Arm; Cuff Size: Large BP Diastolic 66 mm[Hg] Comments: Patient Position: Sitting; Cuff Location: Left Arm; Cuff Size: Large Weight 197 lb Height 64 in Body Mass Index Calculated 33.81 kg/m2 Body Surface Area Calculated 1.94 m2 :43 Temperature 98.2 f Pulse 76 /min Comments: Pattern: Regular Respiration Rate 18 /min Comments: Pattern: Unlabored BP Systolic 138 mm[Hg] Comments: Patient Position: Sitting; Cuff Location: Left Arm; Cuff Size: Standard BP Diastolic 76 mm[Hg] Comments: Patient Position: Sitting; Cuff Location: Left Arm; Cuff Size: Standard Weight 197 lb Height 64 in Body Mass Index Calculated 33.81 kg/m2 Body Surface Area Calculated 1.94 m2 :57 Temperature 98.2 f Comments: Method: Temporal Pulse 74 /min Comments: Pattern: Regular Respiration Rate 16 /min Comments: Pattern: Unlabored O2 SAT 98 % Comments: Room air BP Systolic 124 mm[Hg] Comments: Patient Position: Sitting; Cuff Location: Left Arm; Cuff Size: Standard BP Diastolic 74 mm[Hg] Comments: Patient Position: Sitting; Cuff Location: Left Arm; Cuff Size: Standard Weight 198 lb Height 64 in Body Mass Index Calculated 33.99 kg/m2 Body Surface Area Calculated 1.95 m2 :52 Temperature 98.9 f Pulse 70 /min Comments: Pattern: Regular Respiration Rate 18 /min Comments: Pattern: Unlabored O2 SAT 97 % Comments: Room air BP Systolic 122 mm[Hg] Comments: Patient Position: Sitting; Cuff Location: Left Arm; Cuff Size: Large BP Diastolic 80 mm[Hg] Comments: Patient Position: Sitting; Cuff Location: Left Arm; Cuff Size: Large :26 Temperature 98.4 f Comments: Method: Oral Pulse 74 /min Comments: Pattern: Regular Respiration Rate 18 /min O2 SAT 98 % Comments: Room air BP Systolic 118 mm[Hg] Comments: Patient Position: Sitting; Cuff Location: Left Arm; Cuff Size: Standard BP Diastolic 70 mm[Hg] Comments: Patient Position: Sitting; Cuff Location: Left Arm; Cuff Size: Standard Weight 195 lb Height 64 in Body Mass Index Calculated 33.47 kg/m2 Body Surface Area Calculated 1.94 m2 :13 Temperature 97.7 f Pulse 62 /min Comments: Pattern: Regular Respiration Rate 18 /min Comments: Pattern: Unlabored O2 SAT 95 % Comments: Room air BP Systolic 104 mm[Hg] Comments: Patient Position: Sitting; Cuff Location: Left Arm; Cuff Size: Large BP Diastolic 68 mm[Hg] Comments: Patient Position: Sitting; Cuff Location: Left Arm; Cuff Size: Large Weight 195 lb Height 64 in Body Mass Index Calculated 33.47 kg/m2 Body Surface Area Calculated 1.94 m2 :32 Temperature 97.8 f Pulse 76 /min Comments: Pattern: Regular Respiration Rate 16 /min Comments: Pattern: Unlabored BP Systolic 142 mm[Hg] Comments: Patient Position: Sitting; Cuff Location: Left Arm; Cuff Size: Standard BP Diastolic 68 mm[Hg] Comments: Patient Position: Sitting; Cuff Location: Left Arm; Cuff Size: Standard Weight 192 lb Height 64 in Body Mass Index Calculated 32.96 kg/m2 Body Surface Area Calculated 1.92 m2 :56 Comments: 191 at home Temperature 98.3 f Comments: Method: Temporal Pulse 62 /min Comments: Pattern: Regular Respiration Rate 16 /min Comments: Pattern: Unlabored O2 SAT 97 % Comments: Room air BP Systolic 130 mm[Hg] Comments: Patient Position: Sitting; Cuff Location: Left Arm; Cuff Size: Standard BP Diastolic 70 mm[Hg] Comments: Patient Position: Sitting; Cuff Location: Left Arm; Cuff Size: Standard Weight 193 lb Height 64 in Body Mass Index Calculated 33.13 kg/m2 Body Surface Area Calculated 1.93 m2 :10 Temperature 97.1 f Pulse 64 /min Comments: Pattern: Regular Respiration Rate 16 /min Comments: Pattern: Unlabored BP Systolic 102 mm[Hg] Comments: Patient Position: Sitting; Cuff Location: Left Arm; Cuff Size: Large BP Diastolic 64 mm[Hg] Comments: Patient Position: Sitting; Cuff Location: Left Arm; Cuff Size: Large Weight 189 lb Height 64 in Body Mass Index Calculated 32.44 kg/m2 Body Surface Area Calculated 1.91 m2 :44 Temperature 96.9 f Comments: Method: Oral Pulse 58 /min Comments: Pattern: Regular Respiration Rate 18 /min Comments: Pattern: Unlabored O2 SAT 96 % Comments: Room air BP Systolic 124 mm[Hg] Comments: Patient Position: Sitting; Cuff Location: Left Arm; Cuff Size: Standard BP Diastolic 62 mm[Hg] Comments: Patient Position: Sitting; Cuff Location: Left Arm; Cuff Size: Standard Weight 187 lb Height 64 in Body Mass Index Calculated 32.1 kg/m2 Body Surface Area Calculated 1.9 m2 :05 Temperature 98.2 f Pulse 66 /min Comments: Pattern: Regular Respiration Rate 18 /min Comments: Pattern: Unlabored BP Systolic 122 mm[Hg] Comments: Patient Position: Sitting; Cuff Location: Left Arm; Cuff Size: Large BP Diastolic 68 mm[Hg] Comments: Patient Position: Sitting; Cuff Location: Left Arm; Cuff Size: Large Weight 190 lb Height 64 in Body Mass Index Calculated 32.61 kg/m2 Body Surface Area Calculated 1.91 m2 :57 Weight 200.125 lb Height 64 in Body Mass Index Calculated 34.35 kg/m2 Body Surface Area Calculated 1.96 m2 :50 Comments: per phone conversation Weight 208 lb Height 64 in Body Mass Index Calculated 35.7 kg/m2 Body Surface Area Calculated 1.99 m2 :46 Temperature 98.6 f Comments: Method: Oral Pulse 81 /min Comments: Pattern: Regular Respiration Rate 16 /min Comments: Pattern: Unlabored O2 SAT 98 % Comments: Room air BP Systolic 126 mm[Hg] Comments: Patient Position: Sitting; Cuff Location: Left Arm; Cuff Size: Standard BP Diastolic 78 mm[Hg] Comments: Patient Position: Sitting; Cuff Location: Left Arm; Cuff Size: Standard Weight 222 lb Height 64 in Body Mass Index Calculated 38.11 kg/m2 Body Surface Area Calculated 2.04 m2 :37 Temperature 96.5 f Pulse 68 /min Comments: Pattern: Regular Respiration Rate 18 /min Comments: Pattern: Unlabored BP Systolic 148 mm[Hg] Comments: Patient Position: Sitting; Cuff Location: Left Arm; Cuff Size: Large BP Diastolic 76 mm[Hg] Comments: Patient Position: Sitting; Cuff Location: Left Arm; Cuff Size: Large Weight 223 lb Height 64 in Body Mass Index Calculated 38.28 kg/m2 Body Surface Area Calculated 2.05 m2 :33 Temperature 99.1 f Pulse 78 /min Comments: Pattern: Regular Respiration Rate 18 /min Comments: Pattern: Unlabored BP Systolic 110 mm[Hg] Comments: Patient Position: Sitting; Cuff Location: Left Arm; Cuff Size: Large BP Diastolic 70 mm[Hg] Comments: Patient Position: Sitting; Cuff Location: Left Arm; Cuff Size: Large Weight 216 lb Height 64 in Body Mass Index Calculated 37.08 kg/m2 Body Surface Area Calculated 2.02 m2 :32 Temperature 98.1 f Pulse 76 /min Comments: Pattern: Regular Respiration Rate 18 /min Comments: Pattern: Unlabored BP Systolic 130 mm[Hg] Comments: Patient Position: Sitting; Cuff Location: Left Arm; Cuff Size: Large BP Diastolic 74 mm[Hg] Comments: Patient Position: Sitting; Cuff Location: Left Arm; Cuff Size: Large Weight 219 lb Height 64 in Body Mass Index Calculated 37.59 kg/m2 Body Surface Area Calculated 2.03 m2 :26 Temperature 97.6 f Pulse 88 /min Comments: Pattern: Regular Respiration Rate 20 /min Comments: Pattern: Unlabored O2 SAT 98 % Comments: Room air BP Systolic 136 mm[Hg] Comments: Patient Position: Sitting; Cuff Location: Left Arm; Cuff Size: Large BP Diastolic 70 mm[Hg] Comments: Patient Position: Sitting; Cuff Location: Left Arm; Cuff Size: Large Weight 212 lb Height 64 in Body Mass Index Calculated 36.39 kg/m2 Body Surface Area Calculated 2.01 m2 :01 Temperature 99.1 f Comments: Method: Oral Pulse 88 /min Comments: Pattern: Regular Respiration Rate 20 /min Comments: Pattern: Unlabored BP Systolic 128 mm[Hg] Comments: Patient Position: Sitting; Cuff Location: Left Arm; Cuff Size: Large BP Diastolic 82 mm[Hg] Comments: Patient Position: Sitting; Cuff Location: Left Arm; Cuff Size: Large Weight 212 lb Height 64 in Body Mass Index Calculated 36.39 kg/m2 Body Surface Area Calculated 2.01 m2 :07 Temperature 99.1 f Pulse 92 /min Comments: Pattern: Regular Respiration Rate 18 /min Comments: Pattern: Unlabored BP Systolic 132 mm[Hg] Comments: Patient Position: Sitting; Cuff Location: Left Arm; Cuff Size: Large BP Diastolic 70 mm[Hg] Comments: Patient Position: Sitting; Cuff Location: Left Arm; Cuff Size: Large Weight 217 lb Height 64 in Body Mass Index Calculated 37.25 kg/m2 Body Surface Area Calculated 2.03 m2 :38 Temperature 99.2 f Pulse 80 /min Comments: Pattern: Regular Respiration Rate 18 /min Comments: Pattern: Unlabored BP Systolic 142 mm[Hg] Comments: Patient Position: Sitting; Cuff Location: Left Arm; Cuff Size: Standard BP Diastolic 76 mm[Hg] Comments: Patient Position: Sitting; Cuff Location: Left Arm; Cuff Size: Standard Weight 210 lb Height 64 in Body Mass Index Calculated 36.05 kg/m2 Body Surface Area Calculated 2 m2 :13 Temperature 97.7 f Pulse 72 /min Comments: Pattern: Regular Respiration Rate 18 /min Comments: Pattern: Unlabored BP Systolic 148 mm[Hg] Comments: Patient Position: Sitting; Cuff Location: Left Arm; Cuff Size: Large BP Diastolic 72 mm[Hg] Comments: Patient Position: Sitting; Cuff Location: Left Arm; Cuff Size: Large Weight 205 lb Height 64 in Body Mass Index Calculated 35.19 kg/m2 Body Surface Area Calculated 1.98 m2 :14 Temperature 96.9 f Pulse 70 /min Comments: Pattern: Regular Respiration Rate 18 /min Comments: Pattern: Unlabored BP Systolic 166 mm[Hg] Comments: Patient Position: Sitting; Cuff Location: Left Arm; Cuff Size: Large BP Diastolic 84 mm[Hg] Comments: Patient Position: Sitting; Cuff Location: Left Arm; Cuff Size: Large Height 64 in :23 Temperature 98.6 f Comments: Method: Oral Pulse 68 /min Comments: Pattern: Regular Respiration Rate 17 /min O2 SAT 98 % Comments: Room air BP Systolic 126 mm[Hg] Comments: Patient Position: Sitting; Cuff Location: Left Arm; Cuff Size: Standard BP Diastolic 78 mm[Hg] Comments: Patient Position: Sitting; Cuff Location: Left Arm; Cuff Size: Standard Weight 196.3125 lb Height 64 in Body Mass Index Calculated 33.7 kg/m2 Body Surface Area Calculated 1.94 m2 :55 Temperature 98.4 f Comments: Method: Oral Pulse 76 /min Comments: Pattern: Regular Respiration Rate 18 /min BP Systolic 140 mm[Hg] Comments: Patient Position: Sitting; Cuff Location: Left Arm; Cuff Size: Standard BP Diastolic 78 mm[Hg] Comments: Patient Position: Sitting; Cuff Location: Left Arm; Cuff Size: Standard Weight 196.3125 lb Height 64 in Body Mass Index Calculated 33.7 kg/m2 Body Surface Area Calculated 1.94 m2 :19 Temperature 97.1 f Comments: Method: Oral Pulse 71 /min Comments: Pattern: Regular Respiration Rate 16 /min Comments: Pattern: Unlabored O2 SAT 99 % Comments: Room air BP Systolic 126 mm[Hg] Comments: Patient Position: Sitting; Cuff Location: Left Arm; Cuff Size: Standard BP Diastolic 68 mm[Hg] Comments: Patient Position: Sitting; Cuff Location: Left Arm; Cuff Size: Standard Weight 201 lb Height 64 in Body Mass Index Calculated 34.5 kg/m2 Body Surface Area Calculated 1.96 m2 :26 Weight 201 lb Height 64 in Body Mass Index Calculated 34.5 kg/m2 Body Surface Area Calculated 1.96 m2 :28 Temperature 97.6 f Pulse 72 /min Comments: Pattern: Regular Respiration Rate 18 /min Comments: Pattern: Unlabored BP Systolic 124 mm[Hg] Comments: Patient Position: Sitting; Cuff Location: Left Arm; Cuff Size: Large BP Diastolic 68 mm[Hg] Comments: Patient Position: Sitting; Cuff Location: Left Arm; Cuff Size: Large Weight 201 lb Height 64 in Body Mass Index Calculated 34.5 kg/m2 Body Surface Area Calculated 1.96 m2 :13 Temperature 98.4 f Comments: Method: Oral Pulse 64 /min Comments: Pattern: Regular Respiration Rate 20 /min Comments: Pattern: Unlabored BP Systolic 124 mm[Hg] Comments: Patient Position: Sitting; Cuff Location: Left Arm; Cuff Size: Large BP Diastolic 62 mm[Hg] Comments: Patient Position: Sitting; Cuff Location: Left Arm; Cuff Size: Large Weight 191.375 lb Height 64 in Body Mass Index Calculated 32.85 kg/m2 Body Surface Area Calculated 1.92 m2 :42 Temperature 97.2 f Comments: Method: Oral Pulse 76 /min Comments: Pattern: Regular Respiration Rate 16 /min Comments: Pattern: Unlabored BP Systolic 124 mm[Hg] Comments: Patient Position: Sitting; Cuff Location: Left Arm; Cuff Size: Standard BP Diastolic 76 mm[Hg] Comments: Patient Position: Sitting; Cuff Location: Left Arm; Cuff Size: Standard Weight 204 lb Height 64 in Body Mass Index Calculated 35.02 kg/m2 Body Surface Area Calculated 1.97 m2 :59 Temperature 98.1 f Pulse 84 /min Comments: Pattern: Regular Respiration Rate 18 /min Comments: Pattern: Unlabored BP Systolic 138 mm[Hg] Comments: Patient Position: Sitting; Cuff Location: Left Arm; Cuff Size: Large BP Diastolic 60 mm[Hg] Comments: Patient Position: Sitting; Cuff Location: Left Arm; Cuff Size: Large Weight 204 lb Height 64 in Body Mass Index Calculated 35.02 kg/m2 Body Surface Area Calculated 1.97 m2 :22 Temperature 97.9 f Pulse 96 /min Comments: Pattern: Regular Respiration Rate 16 /min Comments: Pattern: Unlabored BP Systolic 120 mm[Hg] Comments: Patient Position: Sitting; Cuff Location: Left Arm; Cuff Size: Standard BP Diastolic 68 mm[Hg] Comments: Patient Position: Sitting; Cuff Location: Left Arm; Cuff Size: Standard Weight 204 lb Height 64 in Body Mass Index Calculated 35.02 kg/m2 Body Surface Area Calculated 1.97 m2 :03 Temperature 97.3 f Comments: Method: Oral Pulse 74 /min Comments: Pattern: Regular Respiration Rate 19 /min Comments: Pattern: Unlabored BP Systolic 140 mm[Hg] Comments: Patient Position: Sitting; Cuff Location: Left Arm; Cuff Size: Standard BP Diastolic 76 mm[Hg] Comments: Patient Position: Sitting; Cuff Location: Left Arm; Cuff Size: Standard Weight 219.5 lb Height 64 in Body Mass Index Calculated 37.68 kg/m2 Body Surface Area Calculated 2.04 m2 :02 Temperature 98 f Comments: Method: Oral Pulse 80 /min Comments: Pattern: Regular Respiration Rate 20 /min Comments: Pattern: Unlabored BP Systolic 126 mm[Hg] Comments: Patient Position: Sitting; Cuff Location: Left Arm; Cuff Size: Standard BP Diastolic 74 mm[Hg] Comments: Patient Position: Sitting; Cuff Location: Left Arm; Cuff Size: Standard Weight 205 lb Height 64 in Body Mass Index Calculated 35.19 kg/m2 Body Surface Area Calculated 1.98 m2 :12 Temperature 97.4 f Comments: Method: Oral Pulse 72 /min Comments: Pattern: Regular Respiration Rate 16 /min Comments: Pattern: Unlabored BP Systolic 136 mm[Hg] Comments: Patient Position: Sitting; Cuff Location: Left Arm; Cuff Size: Standard BP Diastolic 72 mm[Hg] Comments: Patient Position: Sitting; Cuff Location: Left Arm; Cuff Size: Standard Weight 205.3 lb Height 64 in Body Mass Index Calculated 35.24 kg/m2 Body Surface Area Calculated 1.98 m2 :25 Temperature 98.6 f Pulse 72 /min Comments: Pattern: Regular Respiration Rate 18 /min Comments: Pattern: Unlabored BP Systolic 104 mm[Hg] Comments: Patient Position: Sitting; Cuff Location: Left Arm; Cuff Size: Large BP Diastolic 70 mm[Hg] Comments: Patient Position: Sitting; Cuff Location: Left Arm; Cuff Size: Large Weight 190 lb Height 64 in Body Mass Index Calculated 32.61 kg/m2 Body Surface Area Calculated 1.91 m2 :45 Temperature 97.7 f Comments: Method: Oral Pulse 64 /min Comments: Pattern: Regular Respiration Rate 18 /min Comments: Pattern: Unlabored BP Systolic 142 mm[Hg] Comments: Patient Position: Sitting; Cuff Location: Left Arm; Cuff Size: Large BP Diastolic 68 mm[Hg] Comments: Patient Position: Sitting; Cuff Location: Left Arm; Cuff Size: Large Weight 190 lb Height 64 in Body Mass Index Calculated 32.61 kg/m2 Body Surface Area Calculated 1.91 m2 :22 Temperature 99.7 f Pulse 68 /min Comments: Pattern: Regular Respiration Rate 18 /min Comments: Pattern: Unlabored BP Systolic 118 mm[Hg] Comments: Patient Position: Sitting; Cuff Location: Left Arm; Cuff Size: Large BP Diastolic 70 mm[Hg] Comments: Patient Position: Sitting; Cuff Location: Left Arm; Cuff Size: Large Weight 190 lb Height 64 in Body Mass Index Calculated 32.61 kg/m2 Body Surface Area Calculated 1.91 m2 :06 Temperature 97 f Comments: Method: Oral Pulse 60 /min Comments: Pattern: Regular Respiration Rate 18 /min O2 SAT 99 % Comments: Room air BP Systolic 124 mm[Hg] Comments: Patient Position: Sitting; Cuff Location: Left Arm; Cuff Size: Standard BP Diastolic 78 mm[Hg] Comments: Patient Position: Sitting; Cuff Location: Left Arm; Cuff Size: Standard Weight 190 lb Height 64 in Body Mass Index Calculated 32.61 kg/m2 Body Surface Area Calculated 1.91 m2 :38 Temperature 96 f Pulse 56 /min Comments: Pattern: Regular Respiration Rate 18 /min Comments: Pattern: Unlabored BP Systolic 128 mm[Hg] Comments: Patient Position: Sitting; Cuff Location: Left Arm; Cuff Size: Large BP Diastolic 70 mm[Hg] Comments: Patient Position: Sitting; Cuff Location: Left Arm; Cuff Size: Large Weight 190 lb Height 64 in Body Mass Index Calculated 32.61 kg/m2 Body Surface Area Calculated 1.91 m2 :00 Pulse 68 /min Comments: Pattern: Regular Respiration Rate 16 /min Comments: Pattern: Unlabored BP Systolic 120 mm[Hg] Comments: Patient Position: Sitting; Cuff Location: Left Arm; Cuff Size: Standard BP Diastolic 70 mm[Hg] Comments: Patient Position: Sitting; Cuff Location: Left Arm; Cuff Size: Standard Weight 195.375 lb Height 64 in Body Mass Index Calculated 33.54 kg/m2 Body Surface Area Calculated 1.94 m2 :05 Temperature 97.8 f Pulse 76 /min Comments: Pattern: Regular Respiration Rate 18 /min Comments: Pattern: Unlabored BP Systolic 138 mm[Hg] Comments: Patient Position: Sitting; Cuff Location: Left Arm; Cuff Size: Large BP Diastolic 78 mm[Hg] Comments: Patient Position: Sitting; Cuff Location: Left Arm; Cuff Size: Large Weight 218 lb Height 64 in Body Mass Index Calculated 37.42 kg/m2 Body Surface Area Calculated 2.03 m2 :58 Temperature 97.9 f Pulse 84 /min Comments: Pattern: Regular Respiration Rate 16 /min Comments: Pattern: Unlabored BP Systolic 144 mm[Hg] Comments: Patient Position: Sitting; Cuff Location: Left Arm; Cuff Size: Large BP Diastolic 70 mm[Hg] Comments: Patient Position: Sitting; Cuff Location: Left Arm; Cuff Size: Large :52 Temperature 97.3 f Pulse 60 /min Comments: Pattern: Regular Respiration Rate 16 /min Comments: Pattern: Unlabored BP Systolic 152 mm[Hg] Comments: Patient Position: Sitting; Cuff Location: Left Arm; Cuff Size: Standard BP Diastolic 80 mm[Hg] Comments: Patient Position: Sitting; Cuff Location: Left Arm; Cuff Size: Standard Weight 213 lb Height 64 in Body Mass Index Calculated 36.56 kg/m2 Body Surface Area Calculated 2.01 m2 :57 Temperature 96.8 f Pulse 76 /min Comments: Pattern: Regular Respiration Rate 18 /min Comments: Pattern: Unlabored BP Systolic 138 mm[Hg] Comments: Patient Position: Sitting; Cuff Location: Left Arm; Cuff Size: Large BP Diastolic 72 mm[Hg] Comments: Patient Position: Sitting; Cuff Location: Left Arm; Cuff Size: Large Weight 231 lb :32 Temperature 98.4 f Pulse 72 /min Comments: Pattern: Regular Respiration Rate 18 /min Comments: Pattern: Unlabored BP Systolic 130 mm[Hg] Comments: Patient Position: Sitting; Cuff Location: Left Arm; Cuff Size: Large BP Diastolic 70 mm[Hg] Comments: Patient Position: Sitting; Cuff Location: Left Arm; Cuff Size: Large Weight 210 lb :58 Temperature 96.8 f Pulse 68 /min Comments: Pattern: Regular Respiration Rate 18 /min Comments: Pattern: Unlabored BP Systolic 148 mm[Hg] Comments: Patient Position: Sitting; Cuff Location: Left Arm; Cuff Size: Large BP Diastolic 70 mm[Hg] Comments: Patient Position: Sitting; Cuff Location: Left Arm; Cuff Size: Large Weight 212 lb :07 BP Systolic 162 mm[Hg] Comments: Patient Position: Sitting; Cuff Location: Left Arm; Cuff Size: Standard BP Diastolic 88 mm[Hg] Comments: Patient Position: Sitting; Cuff Location: Left Arm; Cuff Size: Standard :21 Temperature 96.5 f Comments: Method: Oral Pulse 68 /min Comments: Pattern: Regular Respiration Rate 20 /min Comments: Pattern: Unlabored O2 SAT 98 % Comments: Room air BP Systolic 142 mm[Hg] Comments: Patient Position: Sitting; Cuff Location: Left Arm; Cuff Size: Standard BP Diastolic 68 mm[Hg] Comments: Patient Position: Sitting; Cuff Location: Left Arm; Cuff Size: Standard Weight 209 lb :40 Temperature 97.6 f Comments: Method: Oral Pulse 64 /min Comments: Pattern: Regular Respiration Rate 18 /min Comments: Pattern: Unlabored BP Systolic 112 mm[Hg] Comments: Patient Position: Sitting; Cuff Location: Left Arm; Cuff Size: Standard BP Diastolic 62 mm[Hg] Comments: Patient Position: Sitting; Cuff Location: Left Arm; Cuff Size: Standard Weight 204 lb :21 Temperature 98.2 f Pulse 68 /min Comments: Pattern: Regular Respiration Rate 18 /min Comments: Pattern: Unlabored BP Systolic 124 mm[Hg] Comments: Patient Position: Sitting; Cuff Location: Left Arm; Cuff Size: Standard BP Diastolic 52 mm[Hg] Comments: Patient Position: Sitting; Cuff Location: Left Arm; Cuff Size: Standard Weight 205 lb :25 Temperature 98.5 f Pulse 68 /min Comments: Pattern: Regular Respiration Rate 18 /min Comments: Pattern: Unlabored BP Systolic 138 mm[Hg] Comments: Patient Position: Sitting; Cuff Location: Left Arm; Cuff Size: Standard BP Diastolic 68 mm[Hg] Comments: Patient Position: Sitting; Cuff Location: Left Arm; Cuff Size: Standard :31 BP Systolic 90 mm[Hg] Comments: Patient Position: Standing; Cuff Location: Right Arm; Cuff Size: Standard BP Diastolic 60 mm[Hg] Comments: Patient Position: Standing; Cuff Location: Right Arm; Cuff Size: Standard :58 Temperature 98.3 f Comments: Method: Oral Pulse 74 /min Comments: Pattern: Regular Respiration Rate 19 /min Comments: Pattern: Unlabored BP Systolic 138 mm[Hg] Comments: Patient Position: Sitting; Cuff Location: Left Arm; Cuff Size: Standard BP Diastolic 76 mm[Hg] Comments: Patient Position: Sitting; Cuff Location: Left Arm; Cuff Size: Standard Weight 204.375 lb :02 Temperature 97.7 f Pulse 68 /min Comments: Pattern: Regular Respiration Rate 18 /min Comments: Pattern: Unlabored BP Systolic 140 mm[Hg] Comments: Patient Position: Sitting; Cuff Location: Left Arm; Cuff Size: Standard BP Diastolic 70 mm[Hg] Comments: Patient Position: Sitting; Cuff Location: Left Arm; Cuff Size: Standard Weight 207 lb :20 Temperature 97.7 f Pulse 68 /min Comments: Pattern: Regular Respiration Rate 18 /min Comments: Pattern: Unlabored BP Systolic 120 mm[Hg] Comments: Patient Position: Sitting; Cuff Location: Left Arm; Cuff Size: Standard BP Diastolic 74 mm[Hg] Comments: Patient Position: Sitting; Cuff Location: Left Arm; Cuff Size: Standard :16 Temperature 98.1 f Comments: Method: Oral Pulse 72 /min Comments: Pattern: Regular Respiration Rate 18 /min Comments: Pattern: Unlabored BP Systolic 124 mm[Hg] Comments: Patient Position: Sitting; Cuff Location: Left Arm; Cuff Size: Standard BP Diastolic 70 mm[Hg] Comments: Patient Position: Sitting; Cuff Location: Left Arm; Cuff Size: Standard Weight 206 lb :08 Temperature 98.5 f Pulse 68 /min Comments: Pattern: Regular Respiration Rate 18 /min Comments: Pattern: Unlabored BP Systolic 114 mm[Hg] Comments: Patient Position: Sitting; Cuff Location: Left Arm; Cuff Size: Large BP Diastolic 64 mm[Hg] Comments: Patient Position: Sitting; Cuff Location: Left Arm; Cuff Size: Large Weight 206 lb :14 BP Systolic 178 mm[Hg] Comments: Patient Position: Sitting BP Diastolic 98 mm[Hg] Comments: Patient Position: Sitting :01 Temperature 98.2 f Pulse 70 /min Comments: Pattern: Regular Respiration Rate 18 /min Comments: Pattern: Unlabored BP Systolic 190 mm[Hg] Comments: Patient Position: Sitting; Cuff Location: Left Arm; Cuff Size: Large BP Diastolic 84 mm[Hg] Comments: Patient Position: Sitting; Cuff Location: Left Arm; Cuff Size: Large Weight 215 lb :33 Temperature 98.6 f Comments: Method: Undefined Pulse 72 /min Comments: Pattern: Regular Respiration Rate 18 /min Comments: Pattern: Undefined BP Systolic 140 mm[Hg] Comments: Patient Position: Sitting; Cuff Location: Right Arm; Cuff Size: Standard BP Diastolic 80 mm[Hg] Comments: Patient Position: Sitting; Cuff Location: Right Arm; Cuff Size: Standard Weight 0 lb Height 0 in Head Circumference 0.00 cm :00 Pulse 78 /min Comments: Pattern: Regular Respiration Rate 18 /min Comments: Pattern: Unlabored BP Systolic 132 mm[Hg] Comments: Patient Position: Sitting; Cuff Location: Left Arm; Cuff Size: Large BP Diastolic 88 mm[Hg] Comments: Patient Position: Sitting; Cuff Location: Left Arm; Cuff Size: Large Weight 0 lb Height 0 in Head Circumference 0.00 cm :06 Temperature 98.4 f Comments: Method: Undefined Pulse 76 /min Comments: Pattern: Regular Respiration Rate 18 /min Comments: Pattern: Undefined BP Systolic 158 mm[Hg] Comments: Patient Position: Sitting; Cuff Location: Left Arm; Cuff Size: Large BP Diastolic 66 mm[Hg] Comments: Patient Position: Sitting; Cuff Location: Left Arm; Cuff Size: Large Weight 0 lb Height 0 in Head Circumference 0.00 cm :28 Temperature 98.2 f Comments: Method: Undefined Pulse 80 /min Comments: Pattern: Regular Respiration Rate 18 /min Comments: Pattern: Undefined BP Systolic 136 mm[Hg] Comments: Patient Position: Sitting; Cuff Location: Left Arm; Cuff Size: Standard BP Diastolic 84 mm[Hg] Comments: Patient Position: Sitting; Cuff Location: Left Arm; Cuff Size: Standard Weight 219 lb Height 0 in Head Circumference 0.00 cm :42 Temperature 98.8 f Comments: Method: Undefined Pulse 64 /min Comments: Pattern: Regular Respiration Rate 18 /min Comments: Pattern: Undefined BP Systolic 150 mm[Hg] Comments: Patient Position: Sitting; Cuff Location: Left Arm; Cuff Size: Standard BP Diastolic 74 mm[Hg] Comments: Patient Position: Sitting; Cuff Location: Left Arm; Cuff Size: Standard Weight 0 lb Height 0 in Head Circumference 0.00 cm :01 Pulse 80 /min Comments: Pattern: Regular Respiration Rate 20 /min Comments: Pattern: Unlabored BP Systolic 148 mm[Hg] Comments: Patient Position: Standing; Cuff Location: Left Arm; Cuff Size: Large BP Diastolic 78 mm[Hg] Comments: Patient Position: Standing; Cuff Location: Left Arm; Cuff Size: Large Weight 215 lb Height 65 in Body Mass Index Calculated 35.78 kg/m2 Body Surface Area Calculated 2.04 m2 Head Circumference 0.00 cm :46 Temperature 97.3 f Comments: Method: Oral Pulse 76 /min Comments: Pattern: Regular Respiration Rate 18 /min Comments: Pattern: Unlabored BP Systolic 134 mm[Hg] Comments: Patient Position: Sitting; Cuff Location: Left Arm; Cuff Size: Standard BP Diastolic 72 mm[Hg] Comments: Patient Position: Sitting; Cuff Location: Left Arm; Cuff Size: Standard Weight 215 lb Height 0 in Head Circumference 0.00 cm :09 Temperature 98.9 f Comments: Method: Undefined Pulse 72 /min Comments: Pattern: Regular Respiration Rate 18 /min Comments: Pattern: Undefined BP Systolic 164 mm[Hg] Comments: Patient Position: Sitting; Cuff Location: Left Arm; Cuff Size: Large BP Diastolic 82 mm[Hg] Comments: Patient Position: Sitting; Cuff Location: Left Arm; Cuff Size: Large Weight 0 lb Height 0 in Head Circumference 0.00 cm :02 Comments: refused weight Pulse 66 /min Comments: Pattern: Regular Respiration Rate 16 /min Comments: Pattern: Unlabored BP Systolic 138 mm[Hg] Comments: Patient Position: Supine; Cuff Location: Left Arm; Cuff Size: Standard BP Diastolic 78 mm[Hg] Comments: Patient Position: Supine; Cuff Location: Left Arm; Cuff Size: Standard Weight 0 lb Height 65 in Head Circumference 0.00 cm :09 Temperature 98.8 f Comments: Method: Undefined Pulse 70 /min Comments: Pattern: Regular Respiration Rate 18 /min Comments: Pattern: Undefined BP Systolic 118 mm[Hg] Comments: Patient Position: Sitting; Cuff Location: Left Arm; Cuff Size: Large BP Diastolic 74 mm[Hg] Comments: Patient Position: Sitting; Cuff Location: Left Arm; Cuff Size: Large Weight 215 lb Height 0 in Head Circumference 0.00 cm :13 Temperature 98.3 f Comments: Method: Oral Pulse 80 /min Comments: Pattern: Regular Respiration Rate 20 /min Comments: Pattern: Unlabored BP Systolic 142 mm[Hg] Comments: Patient Position: Sitting; Cuff Location: Left Arm; Cuff Size: Large BP Diastolic 80 mm[Hg] Comments: Patient Position: Sitting; Cuff Location: Left Arm; Cuff Size: Large Weight 207.0625 lb Height 65 in Body Mass Index Calculated 34.46 kg/m2 Body Surface Area Calculated 2.01 m2 Head Circumference 0.00 cm : Temperature 97.8 f Comments: Method: Oral Pulse 80 /min Comments: Pattern: Regular Respiration Rate 20 /min Comments: Pattern: Unlabored BP Systolic 142 mm[Hg] Comments: Patient Position: Sitting; Cuff Location: Left Arm; Cuff Size: Large BP Diastolic 82 mm[Hg] Comments: Patient Position: Sitting; Cuff Location: Left Arm; Cuff Size: Large Weight 207.0625 lb Height 65 in Body Mass Index Calculated 34.46 kg/m2 Body Surface Area Calculated 2.01 m2 Head Circumference 0.00 cm :39 Temperature 96.9 f Comments: Method: Oral Pulse 60 /min Comments: Pattern: Regular Respiration Rate 20 /min Comments: Pattern: Unlabored BP Systolic 128 mm[Hg] Comments: Patient Position: Sitting; Cuff Location: Left Arm; Cuff Size: Large BP Diastolic 70 mm[Hg] Comments: Patient Position: Sitting; Cuff Location: Left Arm; Cuff Size: Large Weight 207.0625 lb Height 65 in Body Mass Index Calculated 34.46 kg/m2 Body Surface Area Calculated 2.01 m2 Head Circumference 0.00 cm :28 Pulse 62 /min Comments: Pattern: Regular Respiration Rate 18 /min Comments: Pattern: Unlabored BP Systolic 122 mm[Hg] Comments: Patient Position: Sitting; Cuff Location: Left Arm; Cuff Size: Large BP Diastolic 72 mm[Hg] Comments: Patient Position: Sitting; Cuff Location: Left Arm; Cuff Size: Large Weight 207.0625 lb Height 0 in Head Circumference 0.00 cm :19 Temperature 97.4 f Comments: Method: Oral Pulse 76 /min Comments: Pattern: Regular Respiration Rate 18 /min Comments: Pattern: Unlabored BP Systolic 120 mm[Hg] Comments: Patient Position: Sitting; Cuff Location: Left Arm; Cuff Size: Standard BP Diastolic 80 mm[Hg] Comments: Patient Position: Sitting; Cuff Location: Left Arm; Cuff Size: Standard Weight 206.1875 lb Height 0 in Head Circumference 0.00 cm :47 Pulse 80 /min Comments: Pattern: Regular Respiration Rate 20 /min Comments: Pattern: Unlabored BP Systolic 138 mm[Hg] Comments: Patient Position: Sitting; Cuff Location: Left Arm; Cuff Size: Large BP Diastolic 82 mm[Hg] Comments: Patient Position: Sitting; Cuff Location: Left Arm; Cuff Size: Large Weight 206.1875 lb Height 65 in Body Mass Index Calculated 34.31 kg/m2 Body Surface Area Calculated 2 m2 Head Circumference 0.00 cm :20 Pulse 68 /min Comments: Pattern: Regular Respiration Rate 20 /min Comments: Pattern: Unlabored BP Systolic 136 mm[Hg] Comments: Patient Position: Sitting; Cuff Location: Right Arm; Cuff Size: Large BP Diastolic 82 mm[Hg] Comments: Patient Position: Sitting; Cuff Location: Right Arm; Cuff Size: Large Weight 214.5 lb Height 0 in Head Circumference 0.00 cm :01 Pulse 78 /min Comments: Pattern: Regular Respiration Rate 18 /min Comments: Pattern: Unlabored BP Systolic 168 mm[Hg] Comments: Patient Position: Sitting; Cuff Location: Right Arm; Cuff Size: Standard BP Diastolic 74 mm[Hg] Comments: Patient Position: Sitting; Cuff Location: Right Arm; Cuff Size: Standard Weight 215.375 lb Height 0 in Head Circumference 0.00 cm :21 Pulse 62 /min Comments: Pattern: Regular Respiration Rate 16 /min Comments: Pattern: Unlabored BP Systolic 136 mm[Hg] Comments: Patient Position: Sitting; Cuff Location: Left Arm; Cuff Size: Large BP Diastolic 82 mm[Hg] Comments: Patient Position: Sitting; Cuff Location: Left Arm; Cuff Size: Large Weight 215.375 lb Height 0 in Head Circumference 0.00 cm :58 Pulse 64 /min Comments: Pattern: Regular Respiration Rate 20 /min Comments: Pattern: Unlabored BP Systolic 124 mm[Hg] Comments: Patient Position: Sitting; Cuff Location: Left Arm; Cuff Size: Large BP Diastolic 70 mm[Hg] Comments: Patient Position: Sitting; Cuff Location: Left Arm; Cuff Size: Large Weight 215.0625 lb Height 65 in Body Mass Index Calculated 35.79 kg/m2 Body Surface Area Calculated 2.04 m2 Head Circumference 0.00 cm :07 Pulse 64 /min Comments: Pattern: Regular Respiration Rate 20 /min Comments: Pattern: Unlabored BP Systolic 128 mm[Hg] Comments: Patient Position: Sitting; Cuff Location: Left Arm; Cuff Size: Large BP Diastolic 70 mm[Hg] Comments: Patient Position: Sitting; Cuff Location: Left Arm; Cuff Size: Large Weight 215.0625 lb Height 65 in Body Mass Index Calculated 35.79 kg/m2 Body Surface Area Calculated 2.04 m2 Head Circumference 0.00 cm :14 Pulse 80 /min Comments: Pattern: Regular Respiration Rate 20 /min Comments: Pattern: Unlabored BP Systolic 138 mm[Hg] Comments: Patient Position: Sitting; Cuff Location: Left Arm; Cuff Size: Large BP Diastolic 78 mm[Hg] Comments: Patient Position: Sitting; Cuff Location: Left Arm; Cuff Size: Large Weight 211.25 lb Height 65 in Body Mass Index Calculated 35.15 kg/m2 Body Surface Area Calculated 2.02 m2 Head Circumference 0.00 cm :14 Temperature 98.1 f Comments: Method: Oral Pulse 74 /min Comments: Pattern: Regular Respiration Rate 17 /min Comments: Pattern: Unlabored BP Systolic 128 mm[Hg] Comments: Patient Position: Sitting; Cuff Location: Left Arm; Cuff Size: Standard BP Diastolic 74 mm[Hg] Comments: Patient Position: Sitting; Cuff Location: Left Arm; Cuff Size: Standard Weight 199.0625 lb Height 65 in Body Mass Index Calculated 33.13 kg/m2 Body Surface Area Calculated 1.97 m2 Head Circumference 0.00 cm :48 Temperature 98.2 f Comments: Method: Oral Pulse 72 /min Comments: Pattern: Regular Respiration Rate 17 /min Comments: Pattern: Unlabored BP Systolic 122 mm[Hg] Comments: Patient Position: Sitting; Cuff Location: Left Arm; Cuff Size: Standard BP Diastolic 76 mm[Hg] Comments: Patient Position: Sitting; Cuff Location: Left Arm; Cuff Size: Standard Weight 199.0625 lb Height 65 in Body Mass Index Calculated 33.13 kg/m2 Body Surface Area Calculated 1.97 m2 Head Circumference 0.00 cm :43 Temperature 98.4 f Comments: Method: Oral Pulse 68 /min Comments: Pattern: Regular Respiration Rate 17 /min Comments: Pattern: Unlabored BP Systolic 120 mm[Hg] Comments: Patient Position: Sitting; Cuff Location: Left Arm; Cuff Size: Standard BP Diastolic 74 mm[Hg] Comments: Patient Position: Sitting; Cuff Location: Left Arm; Cuff Size: Standard Weight 199.0625 lb Height 65 in Body Mass Index Calculated 33.13 kg/m2 Body Surface Area Calculated 1.97 m2 Head Circumference 0.00 cm :39 Temperature 97.4 f Comments: Method: Oral Pulse 64 /min Comments: Pattern: Regular Respiration Rate 16 /min Comments: Pattern: Unlabored Weight 0 lb Height 0 in Head Circumference 0.00 cm :37 Temperature 97.4 f Comments: Method: Oral Pulse 72 /min Comments: Pattern: Regular Respiration Rate 18 /min Comments: Pattern: Unlabored BP Systolic 126 mm[Hg] Comments: Patient Position: Sitting; Cuff Location: Left Arm; Cuff Size: Standard BP Diastolic 72 mm[Hg] Comments: Patient Position: Sitting; Cuff Location: Left Arm; Cuff Size: Standard Weight 0 lb Height 0 in Head Circumference 0.00 cm :13 Temperature 97.7 f Comments: Method: Oral Pulse 68 /min Comments: Pattern: Regular Respiration Rate 18 /min Comments: Pattern: Unlabored BP Systolic 138 mm[Hg] Comments: Patient Position: Sitting; Cuff Location: Left Arm; Cuff Size: Standard BP Diastolic 70 mm[Hg] Comments: Patient Position: Sitting; Cuff Location: Left Arm; Cuff Size: Standard Weight 0 lb Height 65 in Head Circumference 0.00 cm :34 Temperature 98 f Comments: Method: Oral Pulse 60 /min Comments: Pattern: Regular Respiration Rate 20 /min Comments: Pattern: Unlabored BP Systolic 124 mm[Hg] Comments: Patient Position: Sitting; Cuff Location: Left Arm; Cuff Size: Large BP Diastolic 72 mm[Hg] Comments: Patient Position: Sitting; Cuff Location: Left Arm; Cuff Size: Large Weight 0 lb Height 65 in Head Circumference 0.00 cm :21 Temperature 97.9 f Comments: Method: Oral Pulse 60 /min Comments: Pattern: Regular Respiration Rate 16 /min Comments: Pattern: Unlabored BP Systolic 118 mm[Hg] Comments: Patient Position: Sitting; Cuff Location: Left Arm; Cuff Size: Standard BP Diastolic 72 mm[Hg] Comments: Patient Position: Sitting; Cuff Location: Left Arm; Cuff Size: Standard Weight 204 lb Height 0 in Head Circumference 0.00 cm :55 Temperature 98.3 f Comments: Method: Oral Pulse 64 /min Comments: Pattern: Regular Respiration Rate 20 /min Comments: Pattern: Unlabored BP Systolic 144 mm[Hg] Comments: Patient Position: Sitting; Cuff Location: Left Arm; Cuff Size: Standard BP Diastolic 80 mm[Hg] Comments: Patient Position: Sitting; Cuff Location: Left Arm; Cuff Size: Standard Weight 204 lb Height 65 in Body Mass Index Calculated 33.95 kg/m2 Body Surface Area Calculated 1.99 m2 Head Circumference 0.00 cm :14 Temperature 98.6 f Comments: Method: Undefined Pulse 88 /min Comments: Pattern: Regular Respiration Rate 16 /min Comments: Pattern: Unlabored BP Systolic 122 mm[Hg] Comments: Patient Position: Sitting; Cuff Location: Left Arm; Cuff Size: Standard BP Diastolic 72 mm[Hg] Comments: Patient Position: Sitting; Cuff Location: Left Arm; Cuff Size: Standard Weight 0 lb Height 0 in Head Circumference 0.00 cm :08 Pulse 70 /min Comments: Pattern: Regular Respiration Rate 16 /min Comments: Pattern: Unlabored BP Systolic 120 mm[Hg] Comments: Patient Position: Sitting; Cuff Location: Left Arm; Cuff Size: Standard BP Diastolic 72 mm[Hg] Comments: Patient Position: Sitting; Cuff Location: Left Arm; Cuff Size: Standard Weight 201 lb Height 0 in Head Circumference 0.00 cm :35 Pulse 72 /min Comments: Pattern: Regular Respiration Rate 16 /min Comments: Pattern: Unlabored BP Systolic 118 mm[Hg] Comments: Patient Position: Sitting; Cuff Location: Left Arm; Cuff Size: Standard BP Diastolic 70 mm[Hg] Comments: Patient Position: Sitting; Cuff Location: Left Arm; Cuff Size: Standard Weight 201 lb Height 0 in Head Circumference 0.00 cm :54 Temperature 97.5 f Comments: Method: Oral Pulse 60 /min Comments: Pattern: Regular Respiration Rate 16 /min Comments: Pattern: Unlabored BP Systolic 120 mm[Hg] Comments: Patient Position: Sitting; Cuff Location: Left Arm; Cuff Size: Standard BP Diastolic 68 mm[Hg] Comments: Patient Position: Sitting; Cuff Location: Left Arm; Cuff Size: Standard Weight 201 lb Height 0 in Head Circumference 0.00 cm :15 Temperature 97.8 f Comments: Method: Oral Pulse 76 /min Comments: Pattern: Regular Respiration Rate 16 /min Comments: Pattern: Unlabored BP Systolic 120 mm[Hg] Comments: Patient Position: Sitting; Cuff Location: Left Arm; Cuff Size: Standard BP Diastolic 72 mm[Hg] Comments: Patient Position: Sitting; Cuff Location: Left Arm; Cuff Size: Standard Weight 0 lb Height 0 in Head Circumference 0.00 cm :02 Temperature 98.6 f Comments: Method: Undefined Pulse 76 /min Comments: Pattern: Regular Respiration Rate 16 /min Comments: Pattern: Undefined BP Systolic 142 mm[Hg] Comments: Patient Position: Undefined; Cuff Location: Undefined; Cuff Size: Undefined BP Diastolic 70 mm[Hg] Comments: Patient Position: Undefined; Cuff Location: Undefined; Cuff Size: Undefined Weight 0 lb Height 0 in Head Circumference 0.00 cm :35 Temperature 99.1 f Comments: Method: Undefined Pulse 78 /min Comments: Pattern: Regular Respiration Rate 16 /min Comments: Pattern: Undefined BP Systolic 152 mm[Hg] Comments: Patient Position: Undefined; Cuff Location: Undefined; Cuff Size: Undefined BP Diastolic 80 mm[Hg] Comments: Patient Position: Undefined; Cuff Location: Undefined; Cuff Size: Undefined Weight 214 lb Height 65 in Body Mass Index Calculated 35.61 kg/m2 Body Surface Area Calculated 2.04 m2 Head Circumference 0.00 cm Results Date Description Value Details :50 Rapid Strep Test, Office (55187) Rapid Strep Test, Office Negative (Normal) :58 TSH (21172) Comments: PATIENT NOT FASTINGPERFORMED BY: [facility] [id number] TSH 5.590 {uIU/mL} (Abnormal) Range: 0.450-4.500 :58 T4, FREE (THYROXINE) (86443) Comments: PATIENT NOT FASTINGPERFORMED BY: [facility] CountyChbtca[facility] [id number] T4,Free(Direct) 1.81 ng/dL (Abnormal) Range: 0.82-1.77 :58 T3, FREE (TRIDOTHYRONINE) (96728) Comments: PATIENT NOT FASTINGPERFORMED BY: [facility] [facility] [id number] Triiodothyronine (T3), Free 2.1 pg/mL (Normal) Range: 2.0-4.4 :44 Anti-Mitochondrial AB Comments: [facility] (refer to report for specific site)refer to report for address and phone number MITOCHN AB <20.0 {Units} (Normal) Range: 0.0-20.0 Comments: Negative 0.0 - 20.0 Equivocal 20.1 - 24.9 Positive >24.9Mitochondrial (M2) Antibodies are found in 90-96% ofpatients with primary biliary cirrhosis. :44 Anti-Smooth Muscle ABS Comments: Comments: ANTI-LIVER/KIDNEY MICRO AB [id number] [facility] (refer to report for specific site)refer to report for address and phone number ANTISMOOTH 6643 2 {Units} (Normal) Range: 0-19 Comments: Negative 0 - 19 Weak positive 20 - 30 Moderate to strong positive >30 Actin Antibodies are found in 52-85% of patients with autoi mmune hepatitis or chronic active hepatitis and in 22% of patients with primary biliary cirrhosis. :44 ANTINUCLEAR ANTIBODIES DIRECT Comments: [facility] (refer to report for specific site)refer to report for address and phone number MELI-DIRECT Negative (Normal) Comments: Performed at: - [facility] [id number] Director: Constantine Christianson PhD, Phone: [phone] :[phone] Ceruloplasmin Comments: Comments: ANTI-LIVER/KIDNEY MICRO AB [id number] [facility] (refer to report for specific site)refer to report for address and phone number CERULOPLAS 1560 22.0 mg/dL (Normal) Range: 19.0-39.0 :44 CMV Acute Antibody IgM Comments: Comments: ANTI-LIVER/KIDNEY MICRO AB [id number] [facility] (refer to report for specific site)refer to report for address and phone number CMVIgM AB < 30.0 AU/mL (Normal) Range: 0.0-29.9 Comments: Negative <30.0 Equivocal 30.0 - 34.9 Positive >34.9A positive result is generally indicative of acuteinfection, reactivation or persistent IgM production. :44 Ferritin Comments: Comments: ANTI-LIVER/KIDNEY MICRO AB [id number] [facility] [address] [place], [address] FERRITIN 236 ng/mL (Normal) Range: 8-252 :44 Free T3 Comments: Comments: ANTI-LIVER/KIDNEY MICRO AB [id number] [facility] [address] [place], [address] FREE T3 1.6 pg/mL (Abnormal) Range: 2.18-3.98 :44 GGTP 64 U/L (Abnormal) Comments: Comments: ANTI-LIVER/KIDNEY MICRO AB [id number] [facility] [id number] [place], [address] Range: 5-55 :44 Hepatitis Panel Acute Comments: Comments: ANTI-LIVER/KIDNEY MICRO AB [id number] [facility] (refer to report for specific site)refer to report for address and phone number HEP C AB <0.1 {s/co_ratio} (Normal) Range: 0.0-0.9 Comments: Negative: < 0.8 Indeterminate: 0.8 - 0.9 Positive: > 0.9 The CDC recommends that a positive HCV antibody result be followed up with a HCV Nucleic Acid Amplification test (549712). HB CORE [id number] Negative (Normal) HB SURF AG Negative (Normal) HEP A IgM 6734 Negative (Normal) :44 Liver Profile Comments: Comments: ANTI-LIVER/KIDNEY MICRO AB [id number] [facility] [id number] [place], [address] D BILI 0.17 mg/dL (Normal) Range: 0.00-0.30 T BILI 0.60 mg/dL (Normal) Range: 0.20-1.00 ALT 48 U/L (Normal) Range: 13-56 ALK P 93 U/L (Normal) Range: 45-117 AST 43 U/L (Abnormal) Range: 15-37 GLOB 3.5 g/dL (Normal) Range: 2.2-4.2 ALB 3.7 g/dL (Normal) Range: 3.2-5.0 T PROT 7.2 g/dL (Normal) Range: 6.4-8.2 :44 Miscellaneous Lab Procedure Comments: Comments: ANTI-LIVER/KIDNEY MICRO AB [id number] SER/RFTest(s) Ordered: ANTI-LIVER/KIDNEY MICROS AB [id number] [facility] [id number] [place], [address] MISC Comments: TEST RESULT UNITS REF INTERVALLiver- Kidney Microsomal Ab <1.0 Units 0.0 - 20.0 Negative 0.0 - 20.0 LAB (Normal) Equivocal 20.1 - 24.9 Positive >24.9LKM type 1 antibodies are detected in patients withautoimmune hepatitis type 2 and in up to 8% ofpatients wi TEST th chronic HCV infection. [facility] ORIGINAL REPORT ON FILE IN LAB CONTAINS ADDITIONAL TEST SITE INFORMATION. :44 T4 Free Direct Comments: Comments: ANTI-LIVER/KIDNEY MICRO AB [id number] [facility] [address] [place] [address], [id number] T4 FREE DIRECT 1.06 ng/dL (Normal) Range: 0.76-1.46 :44 Thyroid Stim Hormone (TSH) Comments: Comments: ANTI-LIVER/KIDNEY MICRO AB [id number] [facility] [address] [facility] [place], [address] TSH 16.40 {uIU/mL} (Abnormal) Range: 0.358-3.74 :44 Transferrin Comments: Comments: ANTI-LIVER/KIDNEY MICRO AB [id number] [facility] (refer to report for specific site)refer to report for address and phone number TRANSFERRN 9147 250 mg/dL (Normal) Range: 200-370 Comments: Performed at: [address] [id number] Director: Constantine Christianson PhD, Phone: [phone] [phone] Bedside Glucose Comments: [facility] [address] [address] BEDSIDE GLU 152 mg/dL (Abnormal) Range: 70-110 Comments: MANAGEMENT OF PATIENT CARE PER NURSING PROTOCOL 28-Xml-121349:45 Basic Metabolic Profile (BMP) Comments: [facility] [address] [place], [place], [id number] GAP 8 (Normal) Range: 5-15 CO2 28.0 mmol/L (Normal) Range: 21.0-32.0 CL 103 mmol/L (Normal) Range: 98-107 K 4.2 mmol/L (Normal) Range: 3.5-5.1 NA 139 mmol/L (Normal) Range: 136-145 CA 9.5 mg/dL (Normal) Range: 8.5-10.1 BUN/CRE 16.9 {RATIO} (Normal) Range: 10-20 Estimated CRCL 44.65 ml/min (Normal) EST GFR - AA 46 mL/min (Abnormal) Comments: GFR Calc EST GFR 38 mL/min (Abnormal) Comments: Non- GFR Calc CREAT,SERUM 1.42 mg/dL (Abnormal) Range: 0.55-1.02 Comments: The validity of the calculated GFR AND GFRAA in patients over70 years has not been determined. Clinical correlation isessential. BUN 24 mg/dL (Abnormal) Range: 7-18 GLU 160 mg/dL (Abnormal) Range: 74-106 Comments: Fasting Glucose result greater than or equal to 126 mg/dLsuggests DIABETES MELLITUS per A.D.A. criteria.Please note revised GLUCOSE reference range dokgfbabw44/02/2018. [id number]-Vyl-[id number]:45 CBC W/Diff, Automated Comments: [facility] [address] [place], [place], [id number] Absolute Lymph 1.73 {X10_3/ul} (Normal) Range: 0.83-4.51 Absolute Neut 6.7 {X10_3/uL} (Normal) Range: 2.0-7.7 IM GRAN % 0.300 % (Normal) Range: 0.0-0.9 Comments: IG% - Immature Granulocytes (promyelocytes, myelocytes andmetamyelocytes) > 1% indicates that a LEFT SHIFT is Present. BASO% 0.4 % (Normal) Range: 0-1 EO% 4.0 % (Normal) Range: 0-5 MONO% 6.2 % (Normal) Range: 0-10 LY% 18.3 % (Abnormal) Range: 19-41 NEUT% 70.8 % (Abnormal) Range: 47-70 MPV 10.5 fL (Normal) Range: 6.2-12.0 PLT 248 K/mm3 (Normal) Range: 150-450 RDW SD 45.0 fL (Abnormal) Range: 35.1-43.9 RDW CV 14.1 % (Normal) Range: 11.6-14.6 MCHC 32.6 {g/gl} (Normal) Range: 32-36 MCH 29.1 pg (Normal) Range: 27.0-32.0 MCV 89.2 fL (Normal) Range: 81-99 HCT 38.9 % (Normal) Range: 37-47 HGB 12.7 g/dL (Normal) Range: 12.0-15.0 RBC 4.36 {M/mm3} (Normal) Range: 4.2-5.4 WBC 9.5 K/mm3 (Normal) Range: 4.4-11.0 [id number]-Ltd-[id number]:45 Partial Thromboplast Time Comments: [facility] [address] [facility] [place], [address] PTT 33.0 s (Normal) Range: 24.1-36.2 [id number]-Qxm-[id number]:45 Prothrombin Time w/INR Comments: [facility] [address] [facility], [address] INR 0.9 (Normal) PROTIME 12.5 s (Normal) Range: 11.7-14.9 29-Dxz-[id number]:45 Troponin-I Comments: [facility] [address] [place], [address] TROPONIN-I < 0.015 ng/mL Comments: TROPONIN-I EXPECTED VALUES <0.045 Negative 0.045 - 0.590 Consistent with Cardiac Damage > OR = 0.600 Critical Value Not every elevated troponin is indicative of KS. T (Normal) hesevalues should be used with clinical judgement in examiningthe patient's clinical picture for diagnosis. To establisha diagnosis of KS versus myocardial injury, there must be ademonstrated rise and/ or fall in the troponin values, inaddition to ischemic symptoms, EKG changes, new regionalwall motion abnormality, and/or angiographical evidence. PLEASE NOTE: REFERENCE RANGES EDITED 17 Liver-Kidney <1.0 {Units} Comments: PATIENT NOT FASTINGPERFORMED BY: Alexandre de [place] Pidjgi6649 [facility] [id number] 2:14 Microsomal Ab (Normal) Range: 0.0-20.0 Comments: Negative 0.0 - 20.0 Equivocal 20.1 - 24.9 Positive >24.9 . LKM type 1 antibodies are detected in patients with autoimmune hepatitis type 2 and in up to 8% of patients with chronic HCV infection. [id number]:14 HEPATIC FUNCTION PANEL Comments: PATIENT NOT FASTINGPERFORMED BY: [employer] [facility] [id number] ([id number]) ALT (SGPT) 49 [iU]/L (Abnormal) Range: 0-32 AST (SGOT) 57 [iU]/L (Abnormal) Range: 0-40 Alkaline Phosphatase 100 [iU]/L (Normal) Range: 39-117 Bilirubin, Direct 0.14 mg/dL (Normal) Range: 0.00-0.40 Bilirubin, Total 0.4 mg/dL (Normal) Range: 0.0-1.2 Albumin 4.1 g/dL (Normal) Range: 3.5-4.8 Protein, Total 6.8 g/dL (Normal) Range: 6.0-8.5 41-Urn-[id number]:14 HEPATITIS PANEL (43397) Comments: PATIENT NOT FASTINGPERFORMED BY: [facility] Qrkcxy6045 [facility] [id number] Hep C Virus Ab <0.1 {s/co_ratio} (Normal) Range: 0.0-0.9 Comments: Negative: < 0.8 Indeterminate: 0.8 - 0.9 Positive: > 0.9 . The CDC recommends that a positive HCV antibody result be followed up with a HCV Nucleic Acid Amplification test (696796). Hep B Core Ab, IgM Negative (Normal) HBsAg Screen Negative (Normal) Hep A Ab, IgM Negative (Normal) 41-Eoz-982441:14 ANTIMITOCHONDRIAL ANTIBODY Comments: PATIENT NOT FASTINGPERFORMED BY: Cinemad.tvMad[facility] Center Nshuar7014 [facility] [id number] (47271) Mitochondrial (M2) Antibody <20.0 {Units} (Normal) Range: 0.0-20.0 Comments: Negative 0.0 - 20.0 Equivocal 20.1 - 24.9 Positive >24.9 . Mitochondrial (M2) Antibodies are found in 90-96% of patients with primary biliary cirrhosis. 52-Dwl-686615:14 TRANSFERRIN (64144) Comments: PATIENT NOT FASTINGPERFORMED BY: [facility]6370 [facility] [id number] Transferrin 226 mg/dL (Normal) Range: 200-370 90-Ntn-917528:14 GGT (GAMMA GLUTAMYLTRANSFERASE) Comments: PATIENT NOT FASTINGPERFORMED BY: [facility]6370 [facility] [id number] (37663) GGT 59 [iU]/L (Normal) Range: 0-60 23-Vfi-987483:14 FERRITIN (76128) Comments: PATIENT NOT FASTINGPERFORMED BY: [facility] Jcudjw6750 [facility] [id number] Ferritin, Serum 545 ng/mL (Abnormal) Range: 15-150 08-Flp-980284:14 CMV IGM ANTBDY (78827) Comments: PATIENT NOT FASTINGPERFORMED BY: [facility] Uicopx2031 [facility] [id number] Cytomegalovirus (CMV) Ab, IgM <30.0 AU/mL (Normal) Range: 0.0-29.9 Comments: Negative <30.0 Equivocal 30.0 - 34.9 Positive >34.9 A positive result is generally indicative of acute infection, reactivation or persistent IgM production. 37-Yol-607319:14 CERULOPLASMIN (12969) Comments: PATIENT NOT FASTINGPERFORMED BY: [facility] Gxvmqs9744 [facility] [id number] Ceruloplasmin 26.3 mg/dL (Normal) Range: 19.0-39.0 04-Ntq-192965:14 ASM (ANTI SMOOTH MUSCLE Comments: PATIENT NOT FASTINGPERFORMED BY: CORTEZ Griffin Zvfeyn9299 [address] [facility] [place] [id number] ANTIBODY) (43399) Actin (Smooth Muscle) Antibody 5 {Units} (Normal) Range: 0-19 Comments: Negative 0 - 19 Weak positive 20 - 30 Moderate to strong positive >30 . Actin Antibodies are found in 52-85% of patients with autoimmune hepatitis or chronic active hepatitis and in 22% of patients with primary biliary cirrhosis. 56-Qsd-628009:14 MELI (ANTINUCLEAR ANTIBODY) Comments: PATIENT NOT FASTINGPERFORMED BY: CORTEZ Cinemad.tvMad[facility] Center Wetdav4882 [address] [facility] [id number] (95745) MELI Direct Negative (Normal) 27-Lkw-865887:33 HgA1C , Office (58578) HgA1C , Office 7.2 % (Abnormal) Range: 4.6 - 7.1 24-Qlk-349192:38 MELI (ANTINUCLEAR ANTIBODY) Comments: PATIENT NOT FASTINGPERFORMED BY: LabMad[facility] Hfsrqx1948 [address] [facility] [id number] (91172) MELI Direct Negative (Normal) 33-Xbr-365590:38 VITAMIN B-12 (CYANOCOBALAMIN) Comments: PATIENT NOT FASTINGPERFORMED BY: [facility].tv[facility] Izohex6088 [facility] [id number] (54553) Vitamin B12 463 pg/mL (Normal) Range: 232-1245 07-Bsv-032347:38 TSH (32252) Comments: PATIENT NOT FASTINGPERFORMED BY: LabMad[facility] Pctzey7576 [address] [facility] [id number] TSH 0.062 {uIU/mL} (Abnormal) Range: 0.450-4.500 14-Sam-303007:38 SED RATE ERYTHROCYTE (20142) Comments: PATIENT NOT FASTINGPERFORMED BY: CORTEZ [facility] Pzhgzk0718 [address] [facility] [id number] Sedimentation Rate-Westergren 7 mm/h (Normal) Range: 0-40 13-Apo-863991:38 METABOLIC PANEL, COMPREHENSIVE Comments: PATIENT NOT FASTINGPERFORMED BY: [facility] Ngbynp8843 [facility] [id number] (52397) ALT (SGPT) 52 [iU]/L (Abnormal) Range: 0-32 AST (SGOT) 52 [iU]/L (Abnormal) Range: 0-40 Alkaline Phosphatase 97 [iU]/L (Normal) Range: 39-117 Bilirubin, Total 0.3 mg/dL (Normal) Range: 0.0-1.2 A/G Ratio 1.4 (Normal) Range: 1.2-2.2 Globulin, Total 2.8 g/dL (Normal) Range: 1.5-4.5 Albumin 4.0 g/dL (Normal) Range: 3.5-4.8 Protein, Total 6.8 g/dL (Normal) Range: 6.0-8.5 Calcium 9.7 mg/dL (Normal) Range: 8.7-10.3 Carbon Dioxide, Total 24 mmol/L (Normal) Range: 18-29 Chloride 100 mmol/L (Normal) Range: 96-106 Potassium 5.0 mmol/L (Normal) Range: 3.5-5.2 Sodium 142 mmol/L (Normal) Range: 134-144 BUN/Creatinine Ratio 18 (Normal) Range: 12-28 eGFR If Africn Am 57 mL/min/1.73 (Abnormal) eGFR If NonAfricn Am 49 mL/min/1.73 (Abnormal) Creatinine 1.09 mg/dL (Abnormal) Range: 0.57-1.00 BUN 20 mg/dL (Normal) Range: 8-27 Glucose 134 mg/dL (Abnormal) Range: 65-99 02-Udl-464431:38 C-REACTIVE PROTEIN (47533) Comments: PATIENT NOT FASTINGPERFORMED BY: LabCoLourdes Medical Center of Burlington CountyUgqnfv8988 [facility] [id number] C-Reactive Protein, Quant 4.8 mg/L (Normal) Range: 0.0-4.9 07-Ncf-516973:38 CBC (AUTO) (23282) Comments: PATIENT NOT FASTINGPERFORMED BY: LabCoLourdes Medical Center of Burlington CountyAenegn0265 [facility] [id number] Platelets 248 {x10E3/uL} Range: 150-379 (Normal) RDW 13.9 % (Normal) Range: 12.3-15.4 MCHC 33.1 g/dL (Normal) Range: 31.5-35.7 MCH 29.4 pg (Normal) Range: 26.6-33.0 MCV 89 fL (Normal) Range: 79-97 Hematocrit 36.3 % (Normal) Range: 34.0-46.6 Hemoglobin 12.0 g/dL (Normal) Range: 11.1-15.9 RBC 4.08 {x10E6/uL} Range: 3.77-5.28 (Normal) WBC 7.0 {x10E3/uL} Range: 3.4-10.8 (Normal) Beta-2 Microglobulin, 2.6 mg/L (Abnormal) Comments: PATIENT NOT FASTINGPERFORMED BY: [employer] [facility] [id number] BY: [address] [id number] 2:25 Serum Range: 0.6-2.4 Comments: Siemens Mysafeplaceulite 2000 Immunochemiluminometric assay (ICMA) 8-Afh-663571:25 Immunoglobulins Comments: PATIENT NOT FASTINGPERFORMED BY: Intrexon Corporationlin6370 [facility] [id number] BY: Shake[address] [id number] Iga/Ige/Igg/Igm (GAME) (72793) Immunoglobulin E, Total 259 {IU/mL} (Abnormal) Range: 0-100 Immunoglobulin M, Qn, Serum 113 mg/dL (Normal) Range: 26-217 Immunoglobulin A, Qn, Serum 130 mg/dL (Normal) Range: 64-422 Immunoglobulin G, Qn, Serum 837 mg/dL (Normal) Range: 700-1600 3-Byb-920644:25 LDH (LD) (LACTATE Comments: PATIENT NOT FASTINGPERFORMED BY: Alexandre de Paris[address] [id number] BY: [address] [id number] DEHYDROGENASE) (55081) LDH 195 [iU]/L (Normal) Range: 119-226 3-Ytg-864982:25 METABOLIC PANEL, Comments: PATIENT NOT FASTINGPERFORMED BY: ShakeTimothy Ville 0074670 [facility] [id number] BY: Cinemad.tv[address] [id number] COMPREHENSIVE (23889) ALT (SGPT) 47 [iU]/L (Abnormal) Range: 0-32 AST (SGOT) 58 [iU]/L (Abnormal) Range: 0-40 Alkaline Phosphatase 96 [iU]/L (Normal) Range: 39-117 Bilirubin, Total 0.5 mg/dL (Normal) Range: 0.0-1.2 A/G Ratio 1.8 (Normal) Range: 1.2-2.2 Globulin, Total 2.4 g/dL (Normal) Range: 1.5-4.5 Albumin 4.4 g/dL (Normal) Range: 3.5-4.8 Protein, Total 6.8 g/dL (Normal) Range: 6.0-8.5 Calcium 9.8 mg/dL (Normal) Range: 8.7-10.3 Carbon Dioxide, Total 25 mmol/L (Normal) Range: 18-29 Chloride 100 mmol/L (Normal) Range: 96-106 Potassium 4.9 mmol/L (Normal) Range: 3.5-5.2 Sodium 141 mmol/L (Normal) Range: 134-144 BUN/Creatinine Ratio 19 (Normal) Range: 12-28 eGFR If Africn Am 45 mL/min/1.73 (Abnormal) eGFR If NonAfricn Am 39 mL/min/1.73 (Abnormal) Creatinine 1.33 mg/dL (Abnormal) Range: 0.57-1.00 BUN 25 mg/dL (Normal) Range: 8-27 Glucose 139 mg/dL (Abnormal) Range: 65-99 5-Ige-516069:25 CBC, PLATELETS & AUT DIFF Comments: PATIENT NOT FASTINGPERFORMED BY: [place]akeTim[place] 0074670 [facility] [id number] BY: Cinemad.tv[address] [id number] (98427) Immature Grans (Abs) 0.0 {x10E3/uL} (Normal) Range: 0.0-0.1 Immature Granulocytes 0 % (Normal) Baso (Absolute) 0.0 {x10E3/uL} (Normal) Range: 0.0-0.2 Eos (Absolute) 0.3 {x10E3/uL} (Normal) Range: 0.0-0.4 Monocytes(Absolute) 0.5 {x10E3/uL} (Normal) Range: 0.1-0.9 Lymphs (Absolute) 1.4 {x10E3/uL} (Normal) Range: 0.7-3.1 Neutrophils (Absolute) 5.0 {x10E3/uL} (Normal) Range: 1.4-7.0 Basos 1 % (Normal) Eos 4 % (Normal) Monocytes 7 % (Normal) Lymphs 19 % (Normal) Neutrophils 69 % (Normal) Platelets 283 {x10E3/uL} (Normal) Range: 150-379 RDW 14.6 % (Normal) Range: 12.3-15.4 MCHC 33.1 g/dL (Normal) Range: 31.5-35.7 MCH 29.2 pg (Normal) Range: 26.6-33.0 MCV 88 fL (Normal) Range: 79-97 Hematocrit 37.2 % (Normal) Range: 34.0-46.6 Hemoglobin 12.3 g/dL (Normal) Range: 11.1-15.9 RBC 4.21 {x10E6/uL} (Normal) Range: 3.77-5.28 WBC 7.2 {x10E3/uL} (Normal) Range: 3.4-10.8 21-Svq-691071:28 Microscopic Examination Comments: PATIENT NOT FASTINGPERFORMED BY: LISNRSelect Specialty Hospital [facility] [id number] Bacteria None seen (Normal) Mucus Threads Present (Normal) Cast Type Hyaline casts (Normal) Casts Present {/lpf} (Abnormal) Epithelial Cells (non renal) 0-10 {/hpf} (Normal) Range: 0 - 10 RBC 0-2 {/hpf} (Normal) Range: 0 - 2 WBC >30 {/hpf} (Abnormal) Range: 0 - 5 54-Ddt-758738:24 URINE RANI CULTURE-RADHA COL Comments: PATIENT NOT FASTINGPERFORMED BY: Alexandre de [place] LimitedSelect Specialty Hospital [facility] [id number] Information: SRC:UC COUNT (34830) Antimicrobial MIHEAD (Normal) Comments: S = Susceptible; I = Intermediate; R = Resistant P = Positive; N = Negative MICS are expressed in micrograms per mL Antibiotic RSLT#1 RSLT#2 RS Susceptibility LT#3 RSLT#4Amoxicillin/Clavulanic Acid SAmpicillin RCefepime SCeftriaxone SCefuroxime SCephalothin SCiprofloxacin SGentamicin SImipenem SNitrofurantoin SPiperacillin RTetracycline STobram ycin STrimethoprim/Sulfa S Result 1 Raoultella Comments: 5,000 Colonies/mL planticola (Abnormal) Urine Final report Culture,Comprehensive (Abnormal) 58-Zvb-571609:28 MICROALBUMIN: CREATININE RATIO Comments: PATIENT NOT FASTINGPERFORMED BY: ShakeLourdes Medical Center of Burlington CountyPbvglf7097 [facility] [id number] (66741) AND (79615) Alb/Creat Ratio 215.8 {mg/g_creat} (Abnormal) Range: 0.0-30.0 Albumin, Urine 245.4 ug/mL (Normal) Creatinine, Urine 113.7 mg/dL (Normal) 45-Fhb-420684:28 URINALYSIS, W/ MICRO (26046) Comments: PATIENT NOT FASTINGPERFORMED BY: Cinemad.tvWalter P. Reuther Psychiatric Hospital6370 [facility] [id number] Microscopic Examination See below: (Normal) Comments: Microscopic was indicated and was performed. Nitrite, Urine Negative (Normal) Urobilinogen,Semi-Qn 0.2 mg/dL (Normal) Range: 0.2-1.0 Bilirubin Negative (Normal) Occult Blood Negative (Normal) Ketones Negative (Normal) Glucose Trace (Abnormal) Protein 1+ (Abnormal) WBC Esterase 1+ (Abnormal) Appearance Clear (Normal) Urine-Color Yellow (Normal) pH 5.5 (Normal) Range: 5.0-7.5 Specific [place] 1.025 (Normal) Range: 1.005-1.030 97-Dwx-153202:28 METABOLIC PANEL, COMPREHENSIVE Comments: PATIENT NOT FASTINGPERFORMED BY: [place] 1480670 [facility] [id number] (69701) ALT (SGPT) 37 [iU]/L (Abnormal) Range: 0-32 AST (SGOT) 44 [iU]/L (Abnormal) Range: 0-40 Alkaline Phosphatase, S 96 [iU]/L (Normal) Range: 39-117 Bilirubin, Total 0.5 mg/dL (Normal) Range: 0.0-1.2 A/G Ratio 1.6 (Normal) Range: 1.2-2.2 Globulin, Total 2.7 g/dL (Normal) Range: 1.5-4.5 Albumin, Serum 4.2 g/dL (Normal) Range: 3.5-4.8 Protein, Total, Serum 6.9 g/dL (Normal) Range: 6.0-8.5 Calcium, Serum 9.9 mg/dL (Normal) Range: 8.7-10.3 Carbon Dioxide, Total 23 mmol/L (Normal) Range: 18-29 Chloride, Serum 97 mmol/L (Normal) Range: 96-106 Potassium, Serum 4.5 mmol/L (Normal) Range: 3.5-5.2 Sodium, Serum 140 mmol/L (Normal) Range: 134-144 BUN/Creatinine Ratio 20 (Normal) Range: 12-28 eGFR If Africn Am 58 mL/min/1.73 (Abnormal) eGFR If NonAfricn Am 50 mL/min/1.73 (Abnormal) Creatinine, Serum 1.08 mg/dL (Abnormal) Range: 0.57-1.00 BUN 22 mg/dL (Normal) Range: 8-27 Glucose, Serum 179 mg/dL (Abnormal) Range: 65-99 97-Zbc-443613:28 CBC, PLATELETS & AUT DIFF Comments: PATIENT NOT FASTINGPERFORMED BY: [facility] Nfprcv9797 [facility] [id number] (20668) Immature Grans (Abs) 0.0 {x10E3/uL} (Normal) Range: 0.0-0.1 Immature Granulocytes 0 % (Normal) Baso (Absolute) 0.1 {x10E3/uL} (Normal) Range: 0.0-0.2 Eos (Absolute) 0.5 {x10E3/uL} (Abnormal) Range: 0.0-0.4 Monocytes(Absolute) 0.6 {x10E3/uL} (Normal) Range: 0.1-0.9 Lymphs (Absolute) 1.9 {x10E3/uL} (Normal) Range: 0.7-3.1 Neutrophils (Absolute) 6.3 {x10E3/uL} (Normal) Range: 1.4-7.0 Basos 1 % (Normal) Eos 6 % (Normal) Monocytes 6 % (Normal) Lymphs 20 % (Normal) Neutrophils 67 % (Normal) Platelets 258 {x10E3/uL} (Normal) Range: 150-379 RDW 14.8 % (Normal) Range: 12.3-15.4 MCHC 32.4 g/dL (Normal) Range: 31.5-35.7 MCH 28.8 pg (Normal) Range: 26.6-33.0 MCV 89 fL (Normal) Range: 79-97 Hematocrit 37.6 % (Normal) Range: 34.0-46.6 Hemoglobin 12.2 g/dL (Normal) Range: 11.1-15.9 RBC 4.24 {x10E6/uL} (Normal) Range: 3.77-5.28 WBC 9.3 {x10E3/uL} (Normal) Range: 3.4-10.8 81-Gcg-634151:28 TSH (THYROID STIMULATING Comments: PATIENT NOT FASTINGPERFORMED BY: ShakeLourdes Medical Center of Burlington CountyRzfmez9569 [facility] [id number] HORMONE) (80558) TSH 23.220 {uIU/mL} (Abnormal) Range: 0.450-4.500 68-Yzm-737430:28 LIPID PANEL (81313) Comments: PATIENT NOT FASTINGPERFORMED BY: ShakeLourdes Medical Center of Burlington CountyDkuhsq7607 [facility] [id number] LDL/HDL Ratio 1.7 {ratio_units} (Normal) Range: 0.0-3.2 Comments: LDL/HDL Ratio Men Women 1/2 Avg.Risk 1.0 1.5 Av g.Risk 3.6 3.2 2X Avg.Risk 6.2 5.0 3X Avg.Risk 8.0 6.1 LDL Cholesterol Calc 83 mg/dL (Normal) Range: 0-99 VLDL Cholesterol Priscilla 42 mg/dL (Abnormal) Range: 5-40 HDL Cholesterol 48 mg/dL (Normal) Triglycerides 208 mg/dL (Abnormal) Range: 0-149 Cholesterol, Total 173 mg/dL (Normal) Range: 100-199 80-Oho-164430:28 CALCIFEDIOL (91504) Comments: PATIENT NOT FASTINGPERFORMED BY: [facility] Oowmuz0383 [address] [place] [id number] Vitamin D, 25-Hydroxy 25.4 ng/mL (Abnormal) Range: 30.0-100.0 Comments: Vitamin D deficiency has been defined by the [place] ofMedicine and an Endocrine Society practice guideline as alevel of serum 25-OH vitamin D less than 20 ng/mL (1,2).The Endocrine Society went on to further define vitamin Dinsufficiency as a level between 21 and 29 ng/mL (2).1. IOM ([place] of Medicine). 2010. Dietary reference intakes for calcium and D. [place]: The National Academies Press.2. Rachel MF, Yael MARLEY, Dunia HERRERA, et al. Evaluation, treatment, and prevention of vitamin D deficiency: an Endocrine Society clinical practice guideline. JCEM. 2010; 96(7):1911-30. 41-Itv-143133:40 Basic Metabolic Profile (BMP) Comments: 'TROP' Serial specimen #1, #2, #3, or #4: [address] [place] [address] [id number] [place], [address] GAP 11 (Normal) Range: 5-15 CO2 24.0 mmol/L (Normal) Range: 21.0-32.0 CL 105 mmol/L (Normal) Range: 98-107 K 3.5 mmol/L (Normal) Range: 3.5-5.1 NA 140 mmol/L (Normal) Range: 136-145 CA 9.3 mg/dL (Normal) Range: 8.5-10.1 BUN/CRE 17.0 {RATIO} (Normal) Range: 10-20 Estimated CRCL 24.47 ml/min (Normal) EST GFR - AA 36 mL/min (Abnormal) Comments: GFR Calc EST GFR 30 mL/min (Abnormal) Comments: Non- GFR Calc CREAT,SERUM 1.76 mg/dL (Abnormal) Range: 0.55-1.02 Comments: The validity of the calculated GFR AND GFRAA in patients over70 years has not been determined. Clinical correlation isessential. BUN 30 mg/dL (Abnormal) Range: 7-18 GLU 178 mg/dL (Abnormal) Range: 70-110 Comments: Fasting Glucose result greater than or equal to 126 mg/dLsuggests DIABETES MELLITUS per A.D.A. criteria. 92-Uig-011149:40 BNP,B-Type NATRIURETIC PEPTIDE Comments: [facility] Uewsgzjjqm12[address] [place], [place], [address] B-TYPE SANJU PEP 13.3 pg/mL (Normal) Range: 0-100 58-Jba-078938:40 CBC W/Diff, Automated Comments: [facility] Dxvowosucv3546 [address] [place], [place], [id number] Absolute Lymph 1.65 {X10_3/ul} (Normal) Range: 0.83-4.51 Absolute Neut 1.9 {X10_3/uL} (Abnormal) Range: 2.0-7.7 IM GRAN % 0.200 % (Normal) Range: 0.0-0.9 Comments: IG% - Immature Granulocytes (promyelocytes, myelocytes andmetamyelocytes) > 1% indicates that a LEFT SHIFT is Present. BASO% 0.2 % (Normal) Range: 0-1 EO% 1.0 % (Normal) Range: 0-5 MONO% 11.4 % (Abnormal) Range: 0-10 LY% 40.1 % (Normal) Range: 19-41 NEUT% 47.1 % (Normal) Range: 47-70 MPV 9.9 fL (Normal) Range: 6.2-12.0 PLT 215 K/mm3 (Normal) Range: 150-450 RDW SD 48.5 fL (Abnormal) Range: 35.1-43.9 RDW CV 15.0 % (Abnormal) Range: 11.6-14.6 MCHC 32.4 {g/gl} (Normal) Range: 32-36 MCH 28.5 pg (Normal) Range: 27.0-32.0 MCV 87.9 fL (Normal) Range: 81-99 HCT 42.0 % (Normal) Range: 37-47 HGB 13.6 g/dL (Normal) Range: 12.0-15.0 RBC 4.78 {M/mm3} (Normal) Range: 4.2-5.4 WBC 4.1 K/mm3 (Abnormal) Range: 4.4-11.0 05-Mlj-496211:40 Troponin-I Comments: 'TROP' Serial specimen #1, #2, #3, or #4: [address] [place] [address] [id number] [place], [address] TROPONIN-I < 0.02 ng/mL (Normal) Comments: TROPONIN-I EXPECTED VALUES <0.05 NEGATIVE 0.06 - 0.59 AT RISK OF [place] > OR = 0.60 SUGGEST [place] 83-Ggo-843755:08 Microscopic Examination Comments: PATIENT WAS FASTINGPERFORMED BY: [employer]6370 [facility] [id number] Bacteria Few (Normal) Mucus Threads Present (Normal) Cast Type Hyaline casts (Normal) Casts Present {/lpf} (Abnormal) Epithelial Cells (non renal) 0-10 {/hpf} (Normal) Range: 0 - 10 RBC 0-2 {/hpf} (Normal) Range: 0 - 2 WBC 11-30 {/hpf} (Abnormal) Range: 0 - 5 46-Stn-293990:08 CALCIFIDIOL (61955) VIT D 25 Comments: PATIENT WAS FASTINGPERFORMED BY: LabIrvine Sensors Corporationrp Qehlny7156 [facility] [id number] Vitamin D, 25-Hydroxy 33.5 ng/mL (Normal) Range: 30.0-100.0 Comments: Vitamin D deficiency has been defined by the [place] of[place]icine and an Endocrine Society practice guideline as alevel of serum 25-OH vitamin D less than 20 ng/mL (1,2).The Endocrine Society went on to further define vitamin Dinsufficiency as a level between 21 and 29 ng/mL (2).1. IOM ([place] of Medicine). 2010. Dietary reference intakes for calcium and D. [place]: The National Academies Press.2. Rachel MF, Yael MARLEY, Dunia HERRERA, et al. Evaluation, treatment, and prevention of vitamin D deficiency: an Endocrine Society clinical practice guideline. JCEM. 2010; 96(7):1911-30. 17-Bhk-091356:08 TSH (06941) Comments: PATIENT WAS FASTINGPERFORMED BY: [facility]6370 [facility] [id number] TSH 3.700 {uIU/mL} (Normal) Range: 0.450-4.500 45-Nir-704071:08 LIPID PANEL (82038) Comments: PATIENT WAS FASTINGPERFORMED BY: [facility]6370 [facility] [id number] LDL/HDL Ratio 1.8 {ratio_units} (Normal) Range: 0.0-3.2 Comments: LDL/HDL Ratio Men Women 1/2 Avg.Risk 1.0 1.5 Av g.Risk 3.6 3.2 2X Avg.Risk 6.2 5.0 3X Avg.Risk 8.0 6.1 LDL Cholesterol Calc 84 mg/dL (Normal) Range: 0-99 VLDL Cholesterol Priscilla 49 mg/dL (Abnormal) Range: 5-40 HDL Cholesterol 46 mg/dL (Normal) Triglycerides 243 mg/dL (Abnormal) Range: 0-149 Cholesterol, Total 179 mg/dL (Normal) Range: 100-199 44-Who-457805:08 URINALYSIS, W/ MICRO (54715) Comments: PATIENT WAS FASTINGPERFORMED BY: [facility]6370 [facility] [id number] Microscopic Examination See below: (Normal) Comments: Microscopic was indicated and was performed. Nitrite, Urine Negative (Normal) Urobilinogen,Semi-Qn 0.2 mg/dL (Normal) Range: 0.2-1.0 Bilirubin Negative (Normal) Occult Blood Negative (Normal) Ketones Negative (Normal) Glucose Negative (Normal) Protein 2+ (Abnormal) WBC Esterase 1+ (Abnormal) Appearance Clear (Normal) Urine-Color Yellow (Normal) pH 5.5 (Normal) Range: 5.0-7.5 Specific [place] >=1.030 (Abnormal) Range: 1.005-1.030 84-Fej-273150:08 MICROALBUMIN: CREATININE RATIO Comments: PATIENT WAS FASTINGPERFORMED BY: [facility]6370 [facility] [id number] (96960) AND (48224) Microalb/Creat Ratio 246.3 {mg/g_creat} (Abnormal) Range: 0.0-30.0 Microalbumin, Urine 433.7 ug/mL (Normal) Comments: Results confirmed ondilution. Creatinine, Urine 176.1 mg/dL (Normal) 00-Tyl-676733:08 METABOLIC PANEL, COMPREHENSIVE Comments: PATIENT WAS FASTINGPERFORMED BY: [employer]70 Beyond VerbalSelect [facility]ty Hospital [facility] [id number] (70230) ALT (SGPT) 26 [iU]/L (Normal) Range: 0-32 AST (SGOT) 21 [iU]/L (Normal) Range: 0-40 Alkaline Phosphatase, S 96 [iU]/L (Normal) Range: 39-117 Bilirubin, Total 0.4 mg/dL (Normal) Range: 0.0-1.2 A/G Ratio 1.9 (Normal) Range: 1.2-2.2 Globulin, Total 2.2 g/dL (Normal) Range: 1.5-4.5 Albumin, Serum 4.2 g/dL (Normal) Range: 3.5-4.8 Protein, Total, Serum 6.4 g/dL (Normal) Range: 6.0-8.5 Calcium, Serum 9.5 mg/dL (Normal) Range: 8.7-10.3 Carbon Dioxide, Total 25 mmol/L (Normal) Range: 18-29 Chloride, Serum 98 mmol/L (Normal) Range: 96-106 Potassium, Serum 4.4 mmol/L (Normal) Range: 3.5-5.2 Sodium, Serum 143 mmol/L (Normal) Range: 134-144 BUN/Creatinine Ratio 17 (Normal) Range: 12-28 eGFR If Africn Am 60 mL/min/1.73 (Normal) eGFR If NonAfricn Am 52 mL/min/1.73 (Abnormal) Creatinine, Serum 1.05 mg/dL (Abnormal) Range: 0.57-1.00 BUN 18 mg/dL (Normal) Range: 8-27 Glucose, Serum 158 mg/dL (Abnormal) Range: 65-99 38-Uva-159284:08 CBC W/AUTO DIFF WBC (77275) Comments: PATIENT WAS FASTINGPERFORMED BY: [employer] LabQuant[employer]ical70 Beyond VerbalSelect Specialty Hospital [facility] [id number] Immature Grans (Abs) 0.0 {x10E3/uL} (Normal) Range: 0.0-0.1 Immature Granulocytes 0 % (Normal) Baso (Absolute) 0.0 {x10E3/uL} (Normal) Range: 0.0-0.2 Eos (Absolute) 0.2 {x10E3/uL} (Normal) Range: 0.0-0.4 Monocytes(Absolute) 0.4 {x10E3/uL} (Normal) Range: 0.1-0.9 Lymphs (Absolute) 1.3 {x10E3/uL} (Normal) Range: 0.7-3.1 Neutrophils (Absolute) 5.2 {x10E3/uL} (Normal) Range: 1.4-7.0 Basos 0 % (Normal) Eos 3 % (Normal) Monocytes 6 % (Normal) Lymphs 18 % (Normal) Neutrophils 73 % (Normal) Platelets 231 {x10E3/uL} (Normal) Range: 150-379 RDW 14.6 % (Normal) Range: 12.3-15.4 MCHC 31.7 g/dL (Normal) Range: 31.5-35.7 MCH 27.7 pg (Normal) Range: 26.6-33.0 MCV 87 fL (Normal) Range: 79-97 Hematocrit 37.5 % (Normal) Range: 34.0-46.6 Hemoglobin 11.9 g/dL (Normal) Range: 11.1-15.9 RBC 4.29 {x10E6/uL} (Normal) Range: 3.77-5.28 WBC 7.2 {x10E3/uL} (Normal) Range: 3.4-10.8 :31 HgA1C , Office (92730) HgA1C , Office 6.6 % (Normal) Range: 4.6 - 7.1 :31 Blood Glucose , Office (10710) Blood Glucose , Office 143 (Normal) :45 CBC W/Diff, Automated Comments: [facility] [id number] [place], [place], [id number] Absolute Lymph 1.46 {X10_3/ul} (Normal) Range: 0.83-4.51 Absolute Neut 10.4 {X10_3/uL} (Abnormal) Range: 2.0-7.7 IM GRAN % 0.300 % (Normal) Range: 0.0-0.9 Comments: IG% - Immature Granulocytes (promyelocytes, myelocytes andmetamyelocytes) > 1% indicates that a LEFT SHIFT is Present. BASO% 0.3 % (Normal) Range: 0-1 EO% 1.9 % (Normal) Range: 0-5 MONO% 6.0 % (Normal) Range: 0-10 LY% 11.3 % (Abnormal) Range: 19-41 NEUT% 80.2 % (Abnormal) Range: 47-70 MPV 9.7 fL (Normal) Range: 6.2-12.0 PLT 219 K/mm3 (Normal) Range: 150-450 RDW SD 45.9 fL (Abnormal) Range: 35.1-43.9 RDW CV 14.3 % (Normal) Range: 11.6-14.6 MCHC 32.1 {g/gl} (Normal) Range: 32-36 MCH 28.1 pg (Normal) Range: 27.0-32.0 MCV 87.7 fL (Normal) Range: 81-99 HCT 36.5 % (Abnormal) Range: 37-47 HGB 11.7 g/dL (Abnormal) Range: 12.0-15.0 RBC 4.16 {M/mm3} (Abnormal) Range: 4.2-5.4 WBC 12.9 K/mm3 (Abnormal) Range: 4.4-11.0 [id number] Comprehensive Metabolic Profil Comments: [facility] [id number] [place], [place], [id number] GAP 8 (Normal) Range: 5-15 CO2 27.0 mmol/L (Normal) Range: 21.0-32.0 CL 104 mmol/L (Normal) Range: 98-107 K 4.0 mmol/L (Normal) Range: 3.5-5.1 NA 139 mmol/L (Normal) Range: 136-145 T BILI 0.50 mg/dL (Normal) Range: 0.20-1.00 ALT 38 U/L (Normal) Range: 12-78 ALK P 95 U/L (Normal) Range: 45-117 AST 35 U/L (Normal) Range: 15-37 CA 9.0 mg/dL (Normal) Range: 8.5-10.1 A/G 1.1 {RATIO} (Normal) Range: 0.9-2.4 GLOB 3.4 g/dL (Normal) Range: 2.3-3.5 ALB 3.6 g/dL (Normal) Range: 3.4-5.0 T PROT 7.0 g/dL (Normal) Range: 6.4-8.2 BUN/CRE 16.7 {RATIO} (Normal) Range: 10-20 Estimated CRCL 34.18 ml/min (Normal) EST GFR - AA 53 mL/min (Abnormal) Comments: GFR Calc EST GFR 44 mL/min (Abnormal) Comments: Non- GFR Calc CREAT,SERUM 1.26 mg/dL (Abnormal) Range: 0.55-1.02 Comments: The validity of the calculated GFR AND GFRAA in patients over70 years has not been determined. Clinical correlation isessential. BUN 21 mg/dL (Abnormal) Range: 7-18 GLU 165 mg/dL (Abnormal) Range: 70-110 Comments: Fasting Glucose result greater than or equal to 126 mg/dLsuggests DIABETES MELLITUS per A.D.A. criteria. 1-Skg-338146:45 Prothrombin Time w/INR Comments: [facility] [address] [place], [place], [id number] INR 0.9 (Normal) PROTIME 11.6 s (Abnormal) Range: 11.7-14.9 1-Opq-803779:12 HgA1C , Office (29339) HgA1C , Office 6.5 % (Normal) Range: 4.6 - 7.1 9-Dlv-946365:12 Blood Glucose , Office (08739) Blood Glucose , Office 122 (Normal) 78-Mgh-66288:39 Lipid Profile Comments: [facility] [address] [place], [place], [id number] VLDL 39 mg/dL (Normal) Range: 5-40 LDL 83 mg/dL (Normal) Range: 0-130 HDL 49 mg/dL (Normal) Comments: The drugs N-Acetylcysteine and Metamizole may falsely deressthis assay. Reference Range HDL <40 mg/dL Low HDL Cholesterol HDL >or= 60 mg/dL High HDL Cholesterol TRIG 193 mg/dL (Normal) Comments: The drugs N-Acetylcysteine and Metamizole may falsely deressthis assay.Serum Triglycerides Reference Interval Normal <150 mg/dL Borderline high 150 - 199 mg/dL High 200 - 499 mg/dL Very High > or = 500 mg/dL CHOL 171 mg/dL (Normal) Comments: <200 mg/dL Desirable 200-240 mg/dL Borderline >240 mg/dL High Risk :39 Methylmalonic Acid Bld Comments: [facility] (refer to report for specific site)refer to report for address and phone number METHYLM [phone] nmol/L (Normal) Range: 0-378 Comments: Performed at: [address] [id number] Director: Frantz Josue MD, Phone: [phone] :[phone] Vitamin B12 531 pg/mL (Normal) Comments: [facility] [address], [address] Range: 211-911 :39 Vitamin D,25 Hydroxy Comments: [facility] [address] [place], [address] Vitamin D 25-OH 44.7 ng/mL (Normal) Comments: Vitamin D 25(OH) Status Range Deficiency <20 ng/mL (50nmol/L) Insuffciency 20 - 30 ng/mL (50 - 75 nmol/L) Sufficiency 30 - 100 ng/mL (75 - 250 nmol/L) Toxicity >100 ng/mL (>250 nmol/L) :29 Bedside Glucose Comments: [facility] LaboratoryPoint of [address] [place] [address] BEDSIDE GLU 139 mg/dL (Abnormal) Range: 70-110 Comments: No Action RequiredMANAGEMENT OF PATIENT CARE PER NURSING PROTOCOL COLON BIOPSY (CHOOSE See Note (Normal) Comments: [facility] [address], [address] :54 SITE) Comments: Patient: MARICRUZ GRIGSBY : 1940 (76/F) Acct Num: [id number] Phys: Constantine Saunders Unit Num: [id number] Loc: LABSPEC Specimen: [id number] Received: 11/05/16 - 163 Spe c Type: COLON BX TISSUES TISSUES: GROSS DESCRIPTION A - Received is one container labeled with the patient's name and designated transverse colon polyp. The specimen consists of th ree irregular fragments oflight bowman soft tissue that in aggregate measure 0.5 x 0.3 x 0.3 cm. The specimenis totally submitted in one cassette. B - Received is one container labeled with the patient's name and designated right colon polyp. The specimen consists of multiple irregular fragments of light bowman soft tissue that in aggregate measure 1.5 x 0.5 x 0.2 cm. The specimen is totally submitted in one cassette. / RY:edita 11/06/16 TC:1 CPT: 70506 x2 HEADER OPERATION: Colonoscopy with polypectomy PRE-OP DIAGNOSIS: Heme-positive stool / anemia TISSUE SUBMITTED: A - Transverse col on polyp, rule out adenoma, B - Right colon polyp biopsies, rule out adenoma MICROSCOPIC DESCRIPTION Slides are reviewed. MICROSCOPIC DIAGNOSIS A. Transverse colon polyp, polypectomy: Fragments of hyperplastic polyp. B. Right colon polyp, polypectomy: Fragments of tubular adenoma. SJ:edita 11/07/16 Signed Zane Elliott 11/07/16 <signature on file> 70-Tbf-886585:47 CBC W/Diff, Automated Comments: [facility] [address] [place], [place], [address] Absolute Lymph 1.88 {X10_3/ul} (Normal) Range: 0.83-4.51 Absolute Neut 5.8 {X10_3/uL} (Normal) Range: 2.0-7.7 IM GRAN % 0.100 % (Normal) Range: 0.0-0.9 Comments: IG% - Immature Granulocytes (promyelocytes, myelocytes andmetamyelocytes) > 1% indicates that a LEFT SHIFT is Present. BASO% 0.5 % (Normal) Range: 0-1 EO% 6.6 % (Abnormal) Range: 0-5 MONO% 6.1 % (Normal) Range: 0-10 LY% 21.3 % (Normal) Range: 19-41 NEUT% 65.4 % (Normal) Range: 47-70 MPV 9.8 fL (Normal) Range: 6.2-12.0 PLT 240 K/mm3 (Normal) Range: 150-450 RDW SD 45.3 fL (Abnormal) Range: 35.1-43.9 RDW CV 14.4 % (Normal) Range: 11.6-14.6 MCHC 31.3 {g/gl} (Abnormal) Range: 32-36 MCH 27.1 pg (Normal) Range: 27.0-32.0 MCV 86.6 fL (Normal) Range: 81-99 HCT 36.7 % (Abnormal) Range: 37-47 HGB 11.5 g/dL (Abnormal) Range: 12.0-15.0 RBC 4.24 {M/mm3} (Normal) Range: 4.2-5.4 WBC 8.8 K/mm3 (Normal) Range: 4.4-11.0 78-Zhf-857260:42 Comprehensive Metabolic Profil Comments: Order Date: 10/10/16Order Info: [id number] - *CMP Complete Metabolic PanelOrder Info: [id number] - *IBC Iron \E AND E\ Total Iron Binding CapacityOrder Info: [id number] - *FerritinComments: Reason:Order Date: 10/10/16Order Info: [id number] - *[place]DA - [place] Lamda Light ChainsComments: Reason:[facility] [address] [facility] [place], [place], [address] GAP 9 (Normal) Range: 5-15 CO2 28.0 mmol/L (Normal) Range: 21.0-32.0 CL 102 mmol/L (Normal) Range: 98-107 K 4.1 mmol/L (Normal) Range: 3.5-5.1 NA 139 mmol/L (Normal) Range: 136-145 T BILI 0.30 mg/dL (Normal) Range: 0.20-1.00 ALT 20 U/L (Normal) Range: 12-78 ALK P 96 U/L (Normal) Range: 45-117 AST 11 U/L (Abnormal) Range: 15-37 CA 8.7 mg/dL (Normal) Range: 8.5-10.1 A/G 1.1 {RATIO} (Normal) Range: 0.9-2.4 GLOB 3.4 g/dL (Normal) Range: 2.3-3.5 ALB 3.6 g/dL (Normal) Range: 3.4-5.0 T PROT 7.0 g/dL (Normal) Range: 6.4-8.2 BUN/CRE 17.6 {RATIO} (Normal) Range: 10-20 EST GFR - AA 68 mL/min (Normal) Comments: GFR Calc EST GFR 56 mL/min (Abnormal) Comments: Non- GFR Calc CREAT,SERUM 1.02 mg/dL (Normal) Range: 0.55-1.02 Comments: The validity of the calculated GFR AND GFRAA in patients over70 years has not been determined. Clinical correlation isessential. BUN 18 mg/dL (Normal) Range: 7-18 GLU 123 mg/dL (Abnormal) Range: 70-110 Comments: Fasting Glucose result from 110 to <126 mg/dLsuggests IMPAIRED HOMEOSTASIS per A.D.A. criteria. 62-Jvq-489941:42 Ferritin Comments: Order Date: 10/10/16Order Info: [id number] - *CMP Complete Metabolic PanelOrder Info: [id number] - *IBC Iron \E AND E\ Total Iron Binding CapacityOrder Info: [id number] - *FerritinComments: Reason:Order Date: 10/10/16Order Info: [id number] - *[place]DA - [place] Lamda Light ChainsComments: Reason:[facility] [address] [place], [place], [id number] FERRITIN 45 ng/mL (Normal) Range: 8-252 14-Xcz-989475:42 DEEPALI + Protein Elect, Serum Comments: Order Date: 10/10/16Order Info: [id number] - *IMEL DEEPALI + Prot Elec, Serum 1495Order Info: [id number] - *[place] - [place] Lamda Light ChainsOrder Date: 10/10/16Order Info: [id number] - *IMEL DEEPALI + Prot Elec, Serum 1495Order Info: [id number] - *[place] - [place] Lamda Light ChainsOrder Date: 10/10/16Order Info: [id number] - *[place] - [place] Lamda Light ChainsIs Patient Fasting? NComments: Reason:[facility] (refer to report for specific site)refer to report for address and phone number NOTE: Comment (Normal) Comments: Protein electrophoresis scan will follow via computer,mail, or data programmer delivery. DEEPALI RESULT,S Comment (Normal) Comments: Immunofixation shows IgG monoclonal protein with lambdalight chain specificity. A/G RATIO 1.4 (Normal) Range: 0.7-1.7 GLOBULIN, TOTAL 2.8 g/dL (Normal) Range: 2.2-3.9 M-SPIKE 0.3 g/dL (Abnormal) GAMMA GLOBULIN 0.8 g/dL (Normal) Range: 0.4-1.8 BETA GLOBULIN 0.9 g/dL (Normal) Range: 0.7-1.3 NMGKV-3-MWJI 0.9 g/dL (Normal) Range: 0.4-1.0 MGNID-4-PGOU 0.2 g/dL (Normal) Range: 0.0-0.4 ALBUMIN 3.7 g/dL (Normal) Range: 2.9-4.4 IMMUNOGL M 100 mg/dL (Normal) Range: 26-217 IMMUNO A 106 mg/dL (Normal) Range: 64-422 IMMUNO G 693 mg/dL (Abnormal) Range: 700-1600 PROTEIN,TOTAL 6.5 g/dL (Normal) Range: 6.0-8.5 30-Bhr-530263:42 Iron+Iron Binding Capacity Comments: Order Date: 10/10/16Order Info: [id number] - *CMP Complete Metabolic PanelOrder Info: [id number] - *IBC Iron \E AND E\ Total Iron Binding CapacityOrder Info: [id number] - *FerritinComments: Reason:Order Date: 10/10/16Order Info: [id number] - *[place] - [place] Lamda Light ChainsComments: Reason:[facility] [address] [place], [place], [address] IRON SATURATION 15.9 % (Normal) Range: 15.0-55.0 IRON 49 ug/dL (Abnormal) Range: 50-170 TIBC 309 ug/dL (Normal) Range: 250-450 88-Llf-892775:42 [place] Lambda Light Chains Comments: Order Date: 10/10/16Order Info: [id number] - *IMEL DEEPALI + Prot Elec, Serum 1495Order Info: [id number] - *[place] - [place] Lamda Light ChainsOrder Date: 10/10/16Order Info: [id number] - *IMEL DEEPALI + Prot Elec, Serum 1495Order Info: [id number] - *[place] - [place] Lamda Light ChainsOrder Date: 10/10/16Order Info: [id number] - *[place] - [place] Lamda Light ChainsIs Patient Fasting? NComments: Reason:[facility] (refer to report for specific site)refer to report for address and phone number KAPPA/LAMBDA % 0.98 (Normal) Range: 0.26-1.65 Comments: Performed at: - [facility] [address] [id number] Director: Constantine Christianson PhD, Phone: [phone] FR LAMBDA LT CH 19.06 mg/L (Normal) Range: 5.71-26.30 FR KAPPA LT CHN 18.62 mg/L (Normal) Range: 3.30-19.40 62-Elb-274657:06 VITAMIN B-12 (CYANOCOBALAMIN) Comments: PATIENT NOT FASTINGPERFORMED BY: [facility] [address] [facility] [id number] ([id number]) Vitamin B12 709 pg/mL (Normal) Range: 211-946 69-Lcl-491912:45 Blood Glucose , Office (53187) Blood Glucose , Office 104 (Normal) 11-Iyh-334885:45 HgA1C , Office (98103) HgA1C , Office 6.7 % (Normal) Range: 4.6 - 7.1 :54 CBC W/Diff, Automated Comments: [facility] [address] [place], [place], [id number] Absolute Lymph 1.51 {X10_3/ul} (Normal) Range: 0.83-4.51 Absolute Neut 4.6 {X10_3/uL} (Normal) Range: 2.0-7.7 IM GRAN % 0.300 % (Normal) Range: 0.0-0.9 Comments: IG% - Immature Granulocytes (promyelocytes, myelocytes andmetamyelocytes) > 1% indicates that a LEFT SHIFT is Present. BASO% 0.4 % (Normal) Range: 0-1 EO% 6.2 % (Abnormal) Range: 0-5 MONO% 5.5 % (Normal) Range: 0-10 LY% 21.7 % (Normal) Range: 19-41 NEUT% 65.9 % (Normal) Range: 47-70 MPV 9.8 fL (Normal) Range: 6.2-12.0 PLT 251 K/mm3 (Normal) Range: 150-450 RDW SD 44.9 fL (Abnormal) Range: 35.1-43.9 RDW CV 14.3 % (Normal) Range: 11.6-14.6 MCHC 30.9 {g/gl} (Abnormal) Range: 32-36 MCH 26.9 pg (Abnormal) Range: 27.0-32.0 MCV 86.9 fL (Normal) Range: 81-99 HCT 37.2 % (Normal) Range: 37-47 HGB 11.5 g/dL (Abnormal) Range: 12.0-15.0 RBC 4.28 {M/mm3} (Normal) Range: 4.2-5.4 WBC 7.0 K/mm3 (Normal) Range: 4.4-11.0 09-Eoz-07051:54 Comprehensive Metabolic Profil Comments: [facility] [address] [place], [place], [address] GAP 8 (Normal) Range: 5-15 CO2 28.0 mmol/L (Normal) Range: 21.0-32.0 CL 105 mmol/L (Normal) Range: 98-107 K 4.0 mmol/L (Normal) Range: 3.5-5.1 NA 141 mmol/L (Normal) Range: 136-145 T BILI 0.30 mg/dL (Normal) Range: 0.20-1.00 ALT 21 U/L (Normal) Range: 12-78 ALK P 93 U/L (Normal) Range: 45-117 AST 10 U/L (Abnormal) Range: 15-37 CA 8.8 mg/dL (Normal) Range: 8.5-10.1 A/G 1.1 {RATIO} (Normal) Range: 0.9-2.4 GLOB 3.3 g/dL (Normal) Range: 2.3-3.5 ALB 3.5 g/dL (Normal) Range: 3.4-5.0 T PROT 6.8 g/dL (Normal) Range: 6.4-8.2 BUN/CRE 15.4 {RATIO} (Normal) Range: 10-20 EST GFR - AA 72 mL/min (Normal) Comments: GFR Calc EST GFR 59 mL/min (Abnormal) Comments: Non- GFR Calc CREAT,SERUM 0.97 mg/dL (Normal) Range: 0.55-1.02 Comments: The validity of the calculated GFR AND GFRAA in patients over70 years has not been determined. Clinical correlation isessential. BUN 15 mg/dL (Normal) Range: 7-18 GLU 141 mg/dL (Abnormal) Range: 70-110 Comments: Fasting Glucose result greater than or equal to 126 mg/dLsuggests DIABETES MELLITUS per A.D.A. criteria. :54 Lipid Profile Comments: [facility] [address] [place], [address] VLDL 38 mg/dL (Normal) Range: 5-40 LDL 86 mg/dL (Normal) Range: 0-130 HDL 52 mg/dL (Normal) Comments: The drugs N-Acetylcysteine and Metamizole may falsely deressthis assay. Reference Range HDL <40 mg/dL Low HDL Cholesterol HDL >or= 60 mg/dL High HDL Cholesterol TRIG 192 mg/dL (Normal) Comments: The drugs N-Acetylcysteine and Metamizole may falsely deressthis assay.Serum Triglycerides Reference Interval Normal <150 mg/dL Borderline high 150 - 199 mg/dL High 200 - 499 mg/dL Very High > or = 500 mg/dL CHOL 176 mg/dL (Normal) Comments: <200 mg/dL Desirable 200-240 mg/dL Borderline >240 mg/dL High Risk :54 Microalb:Creat Ratio,Random UR Comments: [facility] [address] [place], [address] MALB:CREAT 223.2 {mg/g_CRE} (Abnormal) MICROALBUMIN,UR 250.0 mg/L (Normal) UR CREAT 112.00 mg/dL (Normal) :54 Thyroid Stim Hormone (TSH) Comments: [facility] [address] [place], [address] TSH 1.13 {uIU/mL} (Normal) Range: 0.358-3.74 :54 Urinalysis, Complete Comments: How was Urine Obtained? CLEAN [facility] [address] [place], [address] MUCUS, URINE 0 SEEN {/hpf} (Normal) BACTERIA RARE {/hpf} (Normal) SQUAM EPI 0-5 SEEN {/hpf} (Normal) Range: 5-10 RBC-UA 0 SEEN {/hpf} (Normal) Range: 0-5 WBC 10-25 SEEN {/hpf} (Normal) Range: 0-5 LEUK ESTERASE 500 /ul (Abnormal) OCCULT BLOOD-UR Negative /ul (Normal) NITRITE UR Negative (Normal) UROBILI Normal mg/dL (Normal) PROT DIPSTX 30 mg/dL (Abnormal) pH UR 5.0 (Normal) Range: 5.0 - 8.0 SP.GR. DIPSTX 1.020 (Normal) Range: 1.002-1.030 KETONE UR Negative mg/dL (Normal) BILIRUBIN URINE Negative mg/dL (Normal) GLUCOSE, UR Normal mg/dL (Normal) CLARITY Clear (Normal) COLOR Yellow (Normal) :54 Vitamin D,25 Hydroxy Comments: [facility] [address] [place], [address] Vitamin D 25-OH 31.6 ng/mL (Normal) Comments: Vitamin D 25(OH) Status Range Deficiency <20 ng/mL (50nmol/L) Insuffciency 20 - 30 ng/mL (50 - 75 nmol/L) Sufficiency 30 - 100 ng/mL (75 - 250 nmol/L) Toxicity >100 ng/mL (>250 nmol/L) 33-Kjr-204901:07 VITAMIN B-12 (CYANOCOBALAMIN) Comments: PATIENT NOT FASTINGPERFORMED BY: [facility] [facility] [id number] ([id number]) Vitamin B12 1119 pg/mL (Abnormal) Range: 211-946 80-Zqd-181679:23 Microscopic Examination Comments: PATIENT WAS FASTINGPERFORMED BY: [place] [address]70 [facility] [id number] Bacteria Few (Normal) Mucus Threads Present (Normal) Epithelial Cells (non renal) 0-10 {/hpf} (Normal) Range: 0 - 10 RBC 0-2 {/hpf} (Normal) Range: 0 - 2 WBC >30 {/hpf} (Abnormal) Range: 0 - 5 82-Ghy-592033:23 VITAMIN B-12 (CYANOCOBALAMIN) Comments: PATIENT WAS FASTINGPERFORMED BY: [facility]6[address] [facility] [id number] (97996) Vitamin B12 >2000 pg/mL (Abnormal) Range: 211-946 07-Ogb-631974:23 TSH (53029) Comments: PATIENT WAS FASTINGPERFORMED BY: [facility]6[address] [facility] [id number] TSH 5.380 {uIU/mL} (Abnormal) Range: 0.450-4.500 62-Nmi-388060:23 URINALYSIS, W/ MICRO (17949) Comments: PATIENT WAS FASTINGPERFORMED BY: [facility] [id number] Microscopic Examination See below: (Normal) Comments: Microscopic was indicated and was performed. Nitrite, Urine Negative (Normal) Urobilinogen,Semi-Qn 0.2 mg/dL (Normal) Range: 0.2-1.0 Bilirubin Negative (Normal) Occult Blood Negative (Normal) Ketones Negative (Normal) Glucose Negative (Normal) Protein Trace (Normal) WBC Esterase 2+ (Abnormal) Appearance Clear (Normal) Urine-Color Yellow (Normal) pH 6.0 (Normal) Range: 5.0-7.5 Specific [place] 1.022 (Normal) Range: 1.005-1.030 25-Qpv-609201:23 MICROALBUMIN: CREATININE RATIO Comments: PATIENT WAS FASTINGPERFORMED BY: [facility] [id number] ([id number]) AND (94353) Microalb/Creat Ratio 24.2 {mg/g_creat} (Normal) Range: 0.0-30.0 Microalbumin, Urine 35.4 ug/mL (Normal) Creatinine, Urine 146.0 mg/dL (Normal) 53-Zmh-993183:23 METABOLIC PANEL, COMPREHENSIVE Comments: PATIENT WAS FASTINGPERFORMED BY: [facility] CountyUdcnyl8474 [facility] [id number] ([id number]) ALT (SGPT) 25 [iU]/L (Normal) Range: 0-32 AST (SGOT) 24 [iU]/L (Normal) Range: 0-40 Alkaline Phosphatase, S 90 [iU]/L (Normal) Range: 39-117 Bilirubin, Total 0.4 mg/dL (Normal) Range: 0.0-1.2 A/G Ratio 1.8 (Normal) Range: 1.1-2.5 Globulin, Total 2.4 g/dL (Normal) Range: 1.5-4.5 Albumin, Serum 4.3 g/dL (Normal) Range: 3.5-4.8 Protein, Total, Serum 6.7 g/dL (Normal) Range: 6.0-8.5 Calcium, Serum 9.4 mg/dL (Normal) Range: 8.7-10.3 Carbon Dioxide, Total 24 mmol/L (Normal) Range: 18-29 Chloride, Serum 104 mmol/L (Normal) Range: 97-108 Comments: Effective May 14, 2016 the reference interval for Chloride, Serum will be changing to: 97 - 106 Potassium, Serum 4.6 mmol/L (Normal) Range: 3.5-5.2 Comments: Effective May 14, 2016 the reference interval for Potassium, Serum will be changing to: 0 - 7 days 3.7 - 5.2 8 - 30 days 3.7 - 6.4 1 - 6 months 3.8 - 6.0 7 months - 1 year 3.8 - 5.3 >1 year 3.5 - 5.2 Sodium, Serum 136 mmol/L (Normal) Range: 134-144 Comments: Effective May 14, 2016 the reference interval for Sodium, Serum will be changing to: 136 - 144 BUN/Creatinine Ratio 18 (Normal) Range: 11-26 eGFR If Africn Am 59 mL/min/1.73 (Abnormal) eGFR If NonAfricn Am 51 mL/min/1.73 (Abnormal) Creatinine, Serum 1.07 mg/dL (Abnormal) Range: 0.57-1.00 BUN 19 mg/dL (Normal) Range: 8-27 Glucose, Serum 143 mg/dL (Abnormal) Range: 65-99 56-Wnx-830374:23 CBC W/AUTO DIFF WBC (13076) Comments: PATIENT WAS FASTINGPERFORMED BY: [facility]CoL[facility] CountyJkhomq1724 [facility] [id number] Immature Grans (Abs) 0.0 {x10E3/uL} (Normal) Range: 0.0-0.1 Immature Granulocytes 0 % (Normal) Baso (Absolute) 0.0 {x10E3/uL} (Normal) Range: 0.0-0.2 Eos (Absolute) 0.4 {x10E3/uL} (Normal) Range: 0.0-0.4 Monocytes(Absolute) 0.5 {x10E3/uL} (Normal) Range: 0.1-0.9 Lymphs (Absolute) 1.4 {x10E3/uL} (Normal) Range: 0.7-3.1 Neutrophils (Absolute) 5.1 {x10E3/uL} (Normal) Range: 1.4-7.0 Basos 0 % (Normal) Eos 5 % (Normal) Monocytes 7 % (Normal) Lymphs 18 % (Normal) Neutrophils 70 % (Normal) Platelets 231 {x10E3/uL} (Normal) Range: 150-379 RDW 15.2 % (Normal) Range: 12.3-15.4 MCHC 31.3 g/dL (Abnormal) Range: 31.5-35.7 MCH 27.8 pg (Normal) Range: 26.6-33.0 MCV 89 fL (Normal) Range: 79-97 Hematocrit 35.5 % (Normal) Range: 34.0-46.6 Hemoglobin 11.1 g/dL (Normal) Range: 11.1-15.9 RBC 3.99 {x10E6/uL} (Normal) Range: 3.77-5.28 WBC 7.4 {x10E3/uL} (Normal) Range: 3.4-10.8 23-Anj-058129:23 CALCIFIDIOL (60647) VIT D 25 Comments: PATIENT WAS FASTINGPERFORMED BY: [facility]CoL[facility] Bur[facility] CountyMmtjmk8091 [facility] [id number] Vitamin D, 25-Hydroxy 28.9 ng/mL (Abnormal) Range: 30.0-100.0 Comments: Vitamin D deficiency has been defined by the [place] of[facility] Hospitalcine and an Endocrine Society practice guideline as alevel of serum 25-OH vitamin D less than 20 ng/mL (1,2).The Endocrine Society went on to further define vitamin Dinsufficiency as a level between 21 and 29 ng/mL (2).1. IOM ([place] of Medicine). 2010. Dietary reference intakes for calcium and D. [place]: The National Academies Press.2. Rachel MF, Yael NC, Dunia HERRERA, et al. Evaluation, treatment, and prevention of vitamin D deficiency: an Endocrine Society clinical practice guideline. JCEM. 2010; 96(7):1911-30. :22 HgA1C , Office (91576) HgA1C , Office 7.1 % (Normal) Range: 4.6 - 7.1 :22 Blood Glucose , Office (47621) Blood Glucose , Office 171 (Normal) 5-Ktr-654862:10 Basic Metabolic Profile (BMP) Comments: Serial Specimen #1, #2 or #3? 1'TROP' Serial specimen #1, #2, #3, or #4: 1[facility] [address] [place], [address] GAP 8 (Normal) Range: 5-15 CO2 28.0 mmol/L (Normal) Range: 21.0-32.0 CL 106 mmol/L (Normal) Range: 98-107 K 3.5 mmol/L (Normal) Range: 3.5-5.1 NA 142 mmol/L (Normal) Range: 136-145 CA 9.4 mg/dL (Normal) Range: 8.5-10.1 BUN/CRE 17.6 {RATIO} (Normal) Range: 10-20 Estimated CRCL 35.53 ml/min (Normal) EST GFR - AA 54 mL/min (Abnormal) Comments: GFR Calc EST GFR 44 mL/min (Abnormal) Comments: Non- GFR Calc CREAT,SERUM 1.25 mg/dL (Abnormal) Range: 0.55-1.20 Comments: The validity of the calculated GFR AND GFRAA in patients over70 years has not been determined. Clinical correlation isessential. BUN 22 mg/dL (Abnormal) Range: 7-18 GLU 138 mg/dL (Abnormal) Range: 70-110 Comments: Fasting Glucose result greater than or equal to 126 mg/dLsuggests DIABETES MELLITUS per A.D.A. criteria. 7-Svk-793103:10 CBC W/Diff, Automated Comments: [facility] [address] [place], [place], [address] Absolute Lymph 1.32 {X10_3/ul} (Normal) Range: 0.83-4.51 Absolute Neut 6.2 {X10_3/uL} (Normal) Range: 2.0-7.7 IM GRAN % 0.200 % (Normal) Range: 0.0-0.9 Comments: IG% - Immature Granulocytes (promyelocytes, myelocytes andmetamyelocytes) > 1% indicates that a LEFT SHIFT is Present. BASO% 0.2 % (Normal) Range: 0-1 EO% 5.0 % (Normal) Range: 0-5 MONO% 5.9 % (Normal) Range: 0-10 LY% 15.6 % (Abnormal) Range: 19-41 NEUT% 73.1 % (Abnormal) Range: 47-70 MPV 9.8 fL (Normal) Range: 6.2-12.0 PLT 249 K/mm3 (Normal) Range: 150-450 RDW SD 45.8 fL (Abnormal) Range: 35.1-43.9 RDW CV 14.6 % (Normal) Range: 11.6-14.6 MCHC 32.1 {g/gl} (Normal) Range: 32-36 MCH 27.9 pg (Normal) Range: 27.0-32.0 MCV 87.1 fL (Normal) Range: 81-99 HCT 37.1 % (Normal) Range: 37-47 HGB 11.9 g/dL (Abnormal) Range: 12.0-15.0 RBC 4.26 {M/mm3} (Normal) Range: 4.2-5.4 WBC 8.5 K/mm3 (Normal) Range: 4.4-11.0 :10 CK-MB Quantitative and Index Comments: Serial Specimen #1, #2 or #3? 1'TROP' Serial specimen #1, #2, #3, or #4: [address] [place] [address] [address] [place], [address] CKRI 1.3 % (Normal) Range: 0.0-1.4 Comments: RELATIVE INDEX >1.5% IS PRESUMPTIVELY POSITIVE CPKMB 4.3 ng/mL (Normal) Range: 0.0-5.0 Comments: CK-MB and RI Interpretation MB Relative Index Non-AMI <or= 5 NA Indeterminate > 5 <or= 4 AMI > 5 > 4 CPK TOTAL 333 U/L (Abnormal) Range: 26-192 :10 Troponin-I Comments: Serial Specimen #1, #2 or #3? 1'TROP' Serial specimen #1, #2, #3, or #4: [address] [place] [address] [id number] [place], [address] TROPONIN-I < 0.02 ng/mL (Normal) Comments: TROPONIN-I EXPECTED VALUES <0.05 NEGATIVE 0.06 - 0.59 AT RISK OF KS > OR = 0.60 SUGGEST KS :55 Blood Glucose , Office (71253) Blood Glucose , Office 117 (Normal) :36 HgA1C , Office (42094) HgA1C , Office 7.1 % (Normal) Range: 4.6 - 7.1 :52 CBC W/Diff, Automated Comments: [facility] [id number] [place], [address] Absolute Lymph 1.67 {X10_3/ul} (Normal) Range: 0.83-4.51 Absolute Neut 5.1 {X10_3/uL} (Normal) Range: 2.0-7.7 IM GRAN % 0.100 % (Normal) Range: 0.0-0.9 Comments: IG% - Immature Granulocytes (promyelocytes, myelocytes andmetamyelocytes) > 1% indicates that a LEFT SHIFT is Present. BASO% 0.4 % (Normal) Range: 0-1 EO% 6.1 % (Abnormal) Range: 0-5 MONO% 6.3 % (Normal) Range: 0-10 LY% 21.6 % (Normal) Range: 19-41 NEUT% 65.5 % (Normal) Range: 47-70 MPV 9.7 fL (Normal) Range: 6.2-12.0 PLT 227 K/mm3 (Normal) Range: 150-450 RDW SD 46.7 fL (Abnormal) Range: 35.1-43.9 RDW CV 14.5 % (Normal) Range: 11.6-14.6 MCHC 31.7 {g/gl} (Abnormal) Range: 32-36 MCH 27.8 pg (Normal) Range: 27.0-32.0 MCV 87.7 fL (Normal) Range: 81-99 HCT 35.0 % (Abnormal) Range: 37-47 HGB 11.1 g/dL (Abnormal) Range: 12.0-15.0 RBC 3.99 {M/mm3} (Abnormal) Range: 4.2-5.4 WBC 7.7 K/mm3 (Normal) Range: 4.4-11.0 30-Nov-20156:52 Comprehensive Metabolic Profil Comments: [facility] [id number] [place], [place], [id number] GAP 10 (Normal) Range: 5-15 CO2 26.0 mmol/L (Normal) Range: 21.0-32.0 CL 106 mmol/L (Normal) Range: 98-107 K 4.0 mmol/L (Normal) Range: 3.5-5.1 NA 142 mmol/L (Normal) Range: 136-145 T BILI 0.30 mg/dL (Normal) Range: 0.20-1.00 ALT 30 U/L (Normal) Range: 12-78 ALK P 96 U/L (Normal) Range: 50-136 AST 17 U/L (Normal) Range: 15-37 CA 8.8 mg/dL (Normal) Range: 8.5-10.1 A/G 1.1 {RATIO} (Normal) Range: 0.9-2.4 GLOB 3.4 g/dL (Normal) Range: 2.3-3.5 ALB 3.6 g/dL (Normal) Range: 3.4-5.0 T PROT 7.0 g/dL (Normal) Range: 6.4-8.2 BUN/CRE 16.2 {RATIO} (Normal) Range: 10-20 EST GFR - AA 58 mL/min (Abnormal) Comments: GFR Calc EST GFR 48 mL/min (Abnormal) Comments: Non- GFR Calc CREAT,SERUM 1.17 mg/dL (Normal) Range: 0.55-1.20 Comments: The validity of the calculated GFR AND GFRAA in patients over70 years has not been determined. Clinical correlation isessential. BUN 19 mg/dL (Abnormal) Range: 7-18 GLU 151 mg/dL (Abnormal) Range: 70-110 Comments: Fasting Glucose result greater than or equal to 126 mg/dLsuggests DIABETES MELLITUS per A.D.A. criteria. :52 Immunofixation Urine [facility]er [facility] for specific [facility])refer to report for address and phone number DEEPALI Urine Comment (Normal) Comments: Immunofixation shows IgG monoclonal protein with lambdalight chain specificity.Bence Jorge Protein positive; lambda type.Performed at: [place] [address] Dire ctor: Constantine Christianson PhD, Phone: [phone] :[phone] Immunofixation, Serum Comments: [facility] (refer to report for specific site)refer to report for address and phone number DEEPALI RESULT,S Comment (Normal) Comments: Immunofixation shows IgG monoclonal protein with lambdalight chain specificity. IMMUNOGL M 112 mg/dL (Normal) Range: 26-217 IMMUNO A 110 mg/dL (Normal) Range: 64-422 IMMUNO G 783 mg/dL (Normal) Range: 700-1600 :52 [place] Lambda Light Chains Comments: [facility] (refer to report for specific site)refer to report for address and phone number KAPPA/LAMBDA % 1.03 (Normal) Range: 0.26-1.65 FR LAMBDA LT CH 21.11 mg/L (Normal) Range: 5.71-26.30 FR KAPPA LT CHN 21.66 mg/L (Abnormal) Range: 3.30-19.40 :52 Lipid Profile Comments: [facility] [address] [place], [id number] ; review OV 12/02/15 VLDL 35 mg/dL (Normal) Range: 5-40 LDL 85 mg/dL (Normal) Range: 0-130 HDL 46 mg/dL (Normal) Comments: Reference Range HDL <40 mg/dL Low HDL Cholesterol HDL >or= 60 mg/dL High HDL Cholesterol TRIG 177 mg/dL (Normal) Comments: Serum Triglycerides Reference Interval Normal <150 mg/dL Borderline high 150 - 199 mg/dL High 200 - 499 mg/dL Very High > or = 500 mg/dL CHOL 166 mg/dL (Normal) Comments: <200 mg/dL Desirable 200-240 mg/dL Borderline >240 mg/dL High Risk :52 Microalb:Creat Ratio,Random UR Comments: [facility] [address] [place], [address] MALB:CREAT 44.5 {mg/g_CRE} (Abnormal) MICROALBUMIN,UR 68.1 mg/L (Normal) UR CREAT 153.00 mg/dL (Normal) :52 Vitamin B12 268 pg/mL (Normal) Comments: [facility] [address] [place], [address] Range: 211-911 Comments: ADDENDA: normal and has f/u this saturday:52 Vitamin D,25 Hydroxy Comments: [facility] [address] [place], [address] Vitamin D 25-OH 48.8 ng/mL (Normal) Comments: Vitamin D 25(OH) Status Range Deficiency <20 ng/mL (50nmol/L) Insuffciency 20 - 30 ng/mL (50 - 75 nmol/L) Sufficiency 30 - 100 ng/mL (75 - 250 nmol/L) Toxicity >100 ng/mL (>250 nmol/L) :15 Basic Metabolic Profile (BMP) Comments: [facility] [address] [place], [address] GAP 10 (Normal) Range: 5-15 CO2 25.0 mmol/L (Normal) Range: 21.0-32.0 CL 106 mmol/L (Normal) Range: 98-107 K 4.1 mmol/L (Normal) Range: 3.5-5.1 NA 141 mmol/L (Normal) Range: 136-145 CA 8.4 mg/dL (Abnormal) Range: 8.5-10.1 BUN/CRE 18.6 {RATIO} (Normal) Range: 10-20 Estimated CRCL 37.64 ml/min (Normal) EST GFR - AA 58 mL/min (Abnormal) Comments: GFR Calc EST GFR 48 mL/min (Abnormal) Comments: Non- GFR Calc CREAT,SERUM 1.18 mg/dL (Normal) Range: 0.55-1.20 Comments: The validity of the calculated GFR AND GFRAA in patients over70 years has not been determined. Clinical correlation isessential. BUN 22 mg/dL (Abnormal) Range: 7-18 GLU 225 mg/dL (Abnormal) Range: 70-110 Comments: Glucose result greater than or equal to 200 mg/dLsuggests DIABETES MELLITUS per A.D.A. criteria. :15 CBC W/Diff, Automated Comments: [facility] [address] [place], [address] RED CELL MORPH NORM C+C {NORMAL} (Normal) PLT EST ADEQUATE (Normal) SMEAR COMMENT SCANNED (Normal) Comments: LYMPHOPENIA NOTED Absolute Lymph 0.27 {X10_3/ul} (Abnormal) Range: 0.83-4.51 Absolute Neut 10.6 {X10_3/uL} (Abnormal) Range: 2.0-7.7 IM GRAN % 0.300 % (Normal) Range: 0.0-0.9 Comments: IG% - Immature Granulocytes (promyelocytes, myelocytes andmetamyelocytes) > 1% indicates that a LEFT SHIFT is Present. BASO% 0.1 % (Normal) Range: 0-1 EO% 1.4 % (Normal) Range: 0-5 MONO% 3.2 % (Normal) Range: 0-10 LY% 2.4 % (Abnormal) Range: 19-41 NEUT% 92.6 % (Abnormal) Range: 47-70 MPV 9.9 fL (Normal) Range: 6.2-12.0 PLT 204 K/mm3 (Normal) Range: 150-450 RDW SD 46.5 fL (Abnormal) Range: 35.1-43.9 RDW CV 14.4 % (Normal) Range: 11.6-14.6 MCHC 31.6 {g/gl} (Abnormal) Range: 32-36 MCH 28.0 pg (Normal) Range: 27.0-32.0 MCV 88.5 fL (Normal) Range: 81-99 HCT 40.2 % (Normal) Range: 37-47 HGB 12.7 g/dL (Normal) Range: 12.0-15.0 RBC 4.54 {M/mm3} (Normal) Range: 4.2-5.4 WBC 11.4 K/mm3 (Abnormal) Range: 4.4-11.0 66-Psr-465127:08 HgA1C , Office (62620) HgA1C , Office 6.8 % (Normal) Range: 4.6 - 7.1 9-Vea-535096:30 FERRITIN (29408) Comments: PATIENT WAS FASTINGPERFORMED BY: [employer]red70 [facility] [id number] Ferritin, Serum 121 ng/mL (Normal) Range: 15-150 4-Uog-776444:30 IRON (69663) Comments: PATIENT WAS FASTINGPERFORMED BY: [employer]70 [facility] [id number] Iron, Serum 56 ug/dL (Normal) Range: 35-155 Comments: Effective August 15, 2015 the reference interval for Iron, Serum will be changing to: Male 0 - 30 days 35 - 160 1 month - 1 year 18 - 126 2 - 12 years 28 - 147 13 - 17 yea rs 26 - 169 >17 years 38 - 169 Female 0 - 30 days 27 - 133 1 month - 1 year 18 - 126 2 - 12 years 28 - 147 13 - 17 years 26 - 169 18 - 60 years 27 - 159 >60 years 27 - 139 5-Lfo-962495:30 TSH (63653) Comments: PATIENT WAS FASTINGPERFORMED BY: [facility] CountyHqskap5418 [facility] [id number] TSH 1.660 {uIU/mL} (Normal) Range: 0.450-4.500 6-Qpu-178576:30 LIPID PANEL (61081) Comments: PATIENT WAS FASTINGPERFORMED BY: [facility] CountyJpwjno2756 [facility] [id number] LDL/HDL Ratio 2.1 {ratio_units} (Normal) Range: 0.0-3.2 Comments: LDL/HDL Ratio Men Women 1/2 Avg.Risk 1.0 1.5 Av g.Risk 3.6 3.2 2X Avg.Risk 6.2 5.0 3X Avg.Risk 8.0 6.1 LDL Cholesterol Calc 99 mg/dL (Normal) Range: 0-99 VLDL Cholesterol Priscilla 43 mg/dL (Abnormal) Range: 5-40 HDL Cholesterol 48 mg/dL (Normal) Comments: According to ATP-III Guidelines, HDL-C >59 mg/dL is considered anegative risk factor for CHD. Triglycerides 217 mg/dL (Abnormal) Range: 0-149 Cholesterol, Total 190 mg/dL (Normal) Range: 100-199 2-Nui-695918:30 METABOLIC PANEL, COMPREHENSIVE Comments: PATIENT WAS FASTINGPERFORMED BY: [facility]Co Zaeznu2949 [facility] [id number] ([id number]) ALT (SGPT) 24 [iU]/L (Normal) Range: 0-32 AST (SGOT) 20 [iU]/L (Normal) Range: 0-40 Alkaline Phosphatase, S 86 [iU]/L (Normal) Range: 39-117 Bilirubin, Total 0.4 mg/dL (Normal) Range: 0.0-1.2 A/G Ratio 2.0 (Normal) Range: 1.1-2.5 Globulin, Total 2.2 g/dL (Normal) Range: 1.5-4.5 Albumin, Serum 4.5 g/dL (Normal) Range: 3.5-4.8 Protein, Total, Serum 6.7 g/dL (Normal) Range: 6.0-8.5 Calcium, Serum 9.6 mg/dL (Normal) Range: 8.7-10.3 Carbon Dioxide, Total 26 mmol/L (Normal) Range: 18-29 Chloride, Serum 101 mmol/L (Normal) Range: 97-108 Potassium, Serum 4.7 mmol/L (Normal) Range: 3.5-5.2 Sodium, Serum 142 mmol/L (Normal) Range: 134-144 BUN/Creatinine Ratio 18 (Normal) Range: 11-26 eGFR If Africn Am 57 mL/min/1.73 (Abnormal) eGFR If NonAfricn Am 50 mL/min/1.73 (Abnormal) Creatinine, Serum 1.10 mg/dL (Abnormal) Range: 0.57-1.00 BUN 20 mg/dL (Normal) Range: 8-27 Glucose, Serum 122 mg/dL (Abnormal) Range: 65-99 4-Jiq-310911:30 Vitamin D Hydroxy (31205) Comments: PATIENT WAS FASTINGPERFORMED BY: [employer] [place] [id number] Vitamin D, 25-Hydroxy 25.3 ng/mL (Abnormal) Range: 30.0-100.0 Comments: Vitamin D deficiency has been defined by the [place] of[employer]icine and an Endocrine Society practice guideline as alevel of serum 25-OH vitamin D less than 20 ng/mL (1,2).The Endocrine Society went on to further define vitamin Dinsufficiency as a level between 21 and 29 ng/mL (2).1. IOM ([place] of [employer]). 2010. Dietary reference intakes for calcium and D. [place]: The National Academies Press.2. Rachel MF, Yael NC, Dunia HERRERA, et al. Evaluation, treatment, and prevention of vitamin D deficiency: an Endocrine Society clinical practice guideline. JCEM. 2010; 96(7):1911-30. 7-Ryk-597465:30 CBC W/AUTO DIFF WBC Comments: PATIENT WAS FASTINGPERFORMED BY: [facility] [id number] Information: [id number] (96200) Immature Grans (Abs) 0.0 {x10E3/uL} (Normal) Range: 0.0-0.1 Immature Granulocytes 0 % (Normal) Baso (Absolute) 0.1 {x10E3/uL} (Normal) Range: 0.0-0.2 Eos (Absolute) 0.6 {x10E3/uL} (Abnormal) Range: 0.0-0.4 Monocytes(Absolute) 0.5 {x10E3/uL} (Normal) Range: 0.1-0.9 Lymphs (Absolute) 1.7 {x10E3/uL} (Normal) Range: 0.7-3.1 Neutrophils (Absolute) 5.4 {x10E3/uL} (Normal) Range: 1.4-7.0 Basos 1 % (Normal) Eos 7 % (Normal) Monocytes 6 % (Normal) Lymphs 21 % (Normal) Neutrophils 65 % (Normal) Platelets 255 {x10E3/uL} (Normal) Range: 150-379 RDW 14.6 % (Normal) Range: 12.3-15.4 MCHC 33.3 g/dL (Normal) Range: 31.5-35.7 MCH 28.9 pg (Normal) Range: 26.6-33.0 MCV 87 fL (Normal) Range: 79-97 Hematocrit 35.7 % (Normal) Range: 34.0-46.6 Hemoglobin 11.9 g/dL (Normal) Range: 11.1-15.9 RBC 4.12 {x10E6/uL} (Normal) Range: 3.77-5.28 WBC 8.2 {x10E3/uL} (Normal) Range: 3.4-10.8 4-Xzt-863862:30 serum free light chains Comments: PATIENT WAS FASTINGPERFORMED BY: [facility]Co[facility] CountyDjsswc9599 [facility] [id number] (16828) [place]/Lambda Ratio,S 0.81 (Normal) Range: 0.26-1.65 Free Lambda Lt Chains,S 17.93 mg/L (Normal) Range: 5.71-26.30 Free [place] Lt Chains,S 14.55 mg/L (Normal) Range: 3.30-19.40 7-Jbi-554325:08 urine immunofixation (70407) Comments: PATIENT NOT FASTINGPERFORMED BY: [facility]Co[facility] CountyMpubcw8565 [facility] [id number] Information: SRC:UR [id number] DEEPALI Interpretation:U IFEGL (Normal) Comments: 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 5-Eju-160093:30 serum immunofixation (16358) Comments: PATIENT WAS FASTINGPERFORMED BY: [facility]Co[facility] CountyChonix2714 [facility] [id number] Immunoglobulin M, Qn, Serum 99 mg/dL (Normal) Range: 40-230 Immunoglobulin A, Qn, Serum 107 mg/dL (Normal) Range: 91-414 Immunoglobulin G, Qn, Serum 814 mg/dL (Normal) Range: 700-1600 Immunofixation Result, Serum IFEGL (Normal) Comments: Immunofixation shows IgG monoclonal protein with lambda light chainspecificity. :49 CBC W/Diff, Automated Comments: [facility] [address] [place], [place], [id number] Absolute Lymph 0.99 {X10_3/ul} (Normal) Range: 0.83-4.51 Absolute Neut 5.2 {X10_3/uL} (Normal) Range: 2.0-7.7 IM GRAN % 0.300 % (Normal) Range: 0.0-0.9 Comments: IG% - Immature Granulocytes (promyelocytes, myelocytes andmetamyelocytes) > 1% indicates that a LEFT SHIFT is Present. BASO% 0.5 % (Normal) Range: 0-1 EO% 8.0 % (Abnormal) Range: 0-5 MONO% 6.9 % (Normal) Range: 0-10 LY% 13.4 % (Abnormal) Range: 19-41 NEUT% 70.9 % (Abnormal) Range: 47-70 MPV 9.9 fL (Normal) Range: 6.2-12.0 PLT 221 K/mm3 (Normal) Range: 150-450 RDW SD 50.0 fL (Abnormal) Range: 35.1-43.9 RDW CV 14.8 % (Abnormal) Range: 11.6-14.6 MCHC 30.9 {g/gl} (Abnormal) Range: 32-36 MCH 28.6 pg (Normal) Range: 27.0-32.0 MCV 92.7 fL (Normal) Range: 81-99 HCT 35.6 % (Abnormal) Range: 37-47 HGB 11.0 g/dL (Abnormal) Range: 12.0-15.0 RBC 3.84 {M/mm3} (Abnormal) Range: 4.2-5.4 WBC 7.4 K/mm3 (Normal) Range: 4.4-11.0 :49 Ferritin Comments: [facility] [address] [place], [address] FERRITIN 80 ng/mL (Normal) Range: 8-252 :49 Hemoglobin A1c Comments: [facility] [address] [place], [address] HGB A1C 6.4 % (Abnormal) Range: 4.2-6.3 :49 Iron Comments: [facility] [address] [place], [address] IRON 43 ug/dL (Abnormal) Range: 50-170 :49 Iron Binding Capacity,Total Comments: [facility] [address] [place], [address] TIBC 336 ug/dL (Normal) Range: 250-450 :49 Protein Electro.Ur-Random Comments: [facility] (refer to report for specific site)refer to report for address and phone number M-SPIKE,U Test not performed (Normal) GAMMA GLOB,U Test not performed (Normal) Comments: Test not performed BETA GLOB,U Test not performed (Normal) Comments: Test not performed VBIHU-1-CSCB,U Test not performed (Normal) Comments: Test not performed XHQPN-3-WBOS,U Test not performed (Normal) Comments: Test not performed ALBUMIN,UR Test not performed (Normal) Comments: Test not performed PROTEIN,UR Test not performed mg/dL (Normal) Comments: Quantity was not sufficient for analysis.CONTACTED [facility] AT YOUR FACILITY 06-07-15:49 Protein Electroph, S Comments: [facility] (refer to report for specific site)refer to report for address and phone number NOTE Comment (Normal) Comments: Protein electrophoresis scan will follow via computer,mail, or data programmer delivery. NOTE: Comment (Normal) Comments: The SPE pattern demonstrates a single peak (M-spike) in thegamma region which may represent monoclonal protein. Thispeak may also be caused by circulating immune complexes,cryoglobulins, C-reactive prot ein, fibrinogen or hemolysis. If clinically indicated, the presence of a monoclonalgammopathy may be confirmed by immuno-fixation, as well asan evaluation of the urine for the presence of Bence-Jonesprotein. INTERPRETATION Comment (Normal) Comments: Protein electrophoresis scan will follow via computer,mail, or data programmer delivery. A/G RATIO 1.5 (Normal) Range: 0.7-2.0 GLOBULIN, TOTAL 2.8 g/dL (Normal) Range: 2.0-4.5 M-SPIKE 0.2 g/dL (Abnormal) GAMMA GLOBULIN 0.9 g/dL (Normal) Range: 0.5-1.6 BETA GLOBULIN 1.0 g/dL (Normal) Range: 0.6-1.3 ALPHA-2 GLOBUL 0.8 g/dL (Normal) Range: 0.4-1.2 ALPHA-1 GLOBUL 0.2 g/dL (Normal) Range: 0.1-0.4 ALBUMIN 4.1 g/dL (Normal) Range: 3.2-5.6 PROTEIN,TOTAL 6.9 g/dL (Normal) Range: 6.0-8.5 :49 Thyroid Stim Hormone (TSH) Comments: [facility] [address] [place], [place], [id number] TSH 4.43 {uIU/mL} (Abnormal) Range: 0.358-3.74 :49 Vitamin B12 431 pg/mL (Normal) Comments: [facility] [address] [place], [place], [id number] Range: 211-911 Comments: ADDENDA: has apt today :58 AFP, Tumor Marker Comments: Is [facility] ? [facility]er to [facility] for specific site)refer to report for address and phone number AFP TUMOR 2253 4.9 ng/mL (Normal) Range: 0.0-8.3 Comments: Patricia ECLIA methodologyPerformed at: - [facility] [address] [id number] Director: Constantine Christianson PhD, Phone: [phone] :[phone] CBC W/Diff, Automated Comments: [facility] [address] [place], [place], [id number] Absolute Lymph 1.46 {X10_3/ul} (Normal) Range: 0.83-4.51 Absolute Neut 4.9 {X10_3/uL} (Normal) Range: 2.0-7.7 IM GRAN % 0.400 % (Normal) Range: 0.0-0.9 Comments: IG% - Immature Granulocytes (promyelocytes, myelocytes andmetamyelocytes) > 1% indicates that a LEFT SHIFT is Present. BASO% 0.4 % (Normal) Range: 0-1 EO% 4.7 % (Normal) Range: 0-5 MONO% 6.6 % (Normal) Range: 0-10 LY% 20.1 % (Normal) Range: 19-41 NEUT% 67.8 % (Normal) Range: 47-70 MPV 9.9 fL (Normal) Range: 6.2-12.0 PLT 238 K/mm3 (Normal) Range: 150-450 RDW SD 48.2 fL (Abnormal) Range: 35.1-43.9 RDW CV 14.8 % (Abnormal) Range: 11.6-14.6 MCHC 31.4 {g/gl} (Abnormal) Range: 32-36 MCH 29.0 pg (Normal) Range: 27.0-32.0 MCV 92.5 fL (Normal) Range: 81-99 HCT 34.4 % (Abnormal) Range: 37-47 HGB 10.8 g/dL (Abnormal) Range: 12.0-15.0 RBC 3.72 {M/mm3} (Abnormal) Range: 4.2-5.4 WBC 7.3 K/mm3 (Normal) Range: 4.4-11.0 39-Ysc-92157:58 Comprehensive Metabolic Profil Comments: [facility] [address] [place], [address] GAP 7 (Normal) Range: 5-15 CO2 28.0 mmol/L (Normal) Range: 21.0-32.0 CL 106 mmol/L (Normal) Range: 98-107 K 4.6 mmol/L (Normal) Range: 3.5-5.1 NA 141 mmol/L (Normal) Range: 136-145 T BILI 0.30 mg/dL (Normal) Range: 0.20-1.00 ALT 35 U/L (Normal) Range: 12-78 ALK P 89 U/L (Normal) Range: 50-136 AST 25 U/L (Normal) Range: 15-37 CA 8.9 mg/dL (Normal) Range: 8.5-10.1 A/G 1.1 {RATIO} (Normal) Range: 0.9-2.4 GLOB 3.3 g/dL (Normal) Range: 2.3-3.5 ALB 3.7 g/dL (Normal) Range: 3.4-5.0 T PROT 7.0 g/dL (Normal) Range: 6.4-8.2 BUN/CRE 20.2 {RATIO} (Abnormal) Range: 10-20 EST GFR - AA 57 mL/min (Abnormal) EST GFR 47 mL/min (Abnormal) CREAT,SERUM 1.19 mg/dL (Normal) Range: 0.55-1.20 Comments: The validity of the calculated GFR AND GFRAA in patients over70 years has not been determined. Clinical correlation isessential. BUN 24 mg/dL (Abnormal) Range: 7-18 GLU 130 mg/dL (Abnormal) Range: 70-110 Comments: Fasting Glucose result greater than or equal to 126 mg/dLsuggests DIABETES MELLITUS per A.D.A. criteria. :58 Lipid Profile Comments: [facility] [address] [place], [place], [id number] ; non-emergent and has apth this week VLDL 59 mg/dL (Abnormal) Range: 5-40 LDL 141 mg/dL (Abnormal) Range: 0-130 HDL 46 mg/dL (Normal) Comments: Reference Range HDL <40 mg/dL Low HDL Cholesterol HDL >or= 60 mg/dL High HDL Cholesterol TRIG 297 mg/dL (Abnormal) Comments: Serum Triglycerides Reference Interval Normal <150 mg/dL Borderline high 150 - 199 mg/dL High 200 - 499 mg/dL Very High > or = 500 mg/dL CHOL 246 mg/dL (Abnormal) Comments: <200 mg/dL Desirable 200-240 mg/dL Borderline >240 mg/dL High Risk :58 Vitamin B12 278 pg/mL (Normal) Comments: [facility] [address] [facility] [place], [address] Range: 211-911 :58 Vitamin D,25 Hydroxy Comments: [facility] [address] [place], [address] Vitamin D 25-OH 38.4 ng/mL (Normal) Comments: Vitamin D 25(OH) Status Range Deficiency <20 ng/mL (50nmol/L) Insuffciency 20 - 30 ng/mL (50 - 75 nmol/L) Sufficiency 30 - 100 ng/mL (75 - 250 nmol/L) Toxicity >100 ng/mL (>250 nmol/L) 58-Sbf-843025:07 HgA1C , Office (32480) HgA1C , Office 6.5 % (Normal) Range: 4.6 - 7.1 :43 AFP, Tumor Marker Comments: Is Patient ? NTest performed at:[facility] [address] [facility] [place] [address] AFP TUMOR 2253 4.8 ng/mL (Normal) Range: 0.0-8.3 Comments: [employer]og[employer] ECLIA methodologyPerformed at: [facility] - [facility] [address] [id number] Director: Arnold Jefferson PhD, Phone: [phone] :[phone] CBC W/Diff, Automated Comments: Test performed at:[facility] [address] [facility] [place] [address] Absolute Lymph 1.16 {X10_3/ul} (Normal) Range: 0.83-4.51 Absolute Neut 3.7 {X10_3/uL} (Normal) Range: 2.0-7.7 IM GRAN % 0.200 % (Normal) Range: 0.0-0.9 Comments: IG% - Immature Granulocytes (promyelocytes, myelocytes andmetamyelocytes) > 1% indicates that a LEFT SHIFT is Present. BASO% 0.7 % (Normal) Range: 0-1 EO% 6.3 % (Abnormal) Range: 0-5 MONO% 6.6 % (Normal) Range: 0-10 LY% 20.8 % (Normal) Range: 19-41 NEUT% 65.4 % (Normal) Range: 47-70 MPV 10.0 fL (Normal) Range: 6.2-12.0 PLT 249 K/mm3 (Normal) Range: 150-450 RDW SD 46.0 fL (Abnormal) Range: 35.1-43.9 RDW CV 14.3 % (Normal) Range: 11.6-14.6 MCHC 32.0 {g/gl} (Normal) Range: 32-36 MCH 29.0 pg (Normal) Range: 27.0-32.0 MCV 90.7 fL (Normal) Range: 81-99 HCT 33.1 % (Abnormal) Range: 37-47 HGB 10.6 g/dL (Abnormal) Range: 12.0-15.0 RBC 3.65 {M/mm3} (Abnormal) Range: 4.2-5.4 WBC 5.6 K/mm3 (Normal) Range: 4.4-11.0 70-Wga-56169:43 Comprehensive Metabolic Profil Comments: Test performed at:[facility] [address] [place] [address] GAP 11 (Normal) Range: 5-15 CO2 24.0 mmol/L (Normal) Range: 21.0-32.0 CL 103 mmol/L (Normal) Range: 98-107 K 4.4 mmol/L (Normal) Range: 3.5-5.1 NA 138 mmol/L (Normal) Range: 136-145 T BILI 0.30 mg/dL (Normal) Range: 0.20-1.00 ALT 27 U/L (Normal) Range: 12-78 ALK P 84 U/L (Normal) Range: 50-136 AST 18 U/L (Normal) Range: 15-37 CA 9.0 mg/dL (Normal) Range: 8.5-10.1 A/G 1.2 {RATIO} (Normal) Range: 0.9-2.4 GLOB 3.3 g/dL (Normal) Range: 2.7-4.2 ALB 3.8 g/dL (Normal) Range: 3.4-5.0 T PROT 7.1 g/dL (Normal) Range: 6.4-8.2 BUN/CRE 17.7 {RATIO} (Normal) Range: 10-20 CREAT,SERUM 1.3 mg/dL (Abnormal) Range: 0.6-1.0 BUN 23 mg/dL (Abnormal) Range: 7-18 GLU 140 mg/dL (Abnormal) Range: 70-110 Comments: Fasting Glucose result greater than or equal to 126 mg/dLsuggests DIABETES MELLITUS per A.D.A. criteria. :43 Lipid Profile Comments: Test performed at:[facility] [address] [place] [address] VLDL 61 mg/dL (Abnormal) Range: 5-40 LDL 143 mg/dL (Abnormal) Range: 0-130 HDL 38 mg/dL (Abnormal) Comments: Reference Range HDL <40 mg/dL Low HDL Cholesterol HDL >or= 60 mg/dL High HDL Cholesterol TRIG 306 mg/dL (Abnormal) Range: 0-199 Comments: Serum Triglycerides Reference Interval Normal <150 mg/dL Borderline high 150 - 199 mg/dL High 200 - 499 mg/dL Very High > or = 500 mg/dL CHOL 242 mg/dL (Abnormal) Comments: <200 mg/dL Desirable 200-240 mg/dL Borderline >240 mg/dL High Risk :43 Microalb:Creat Ratio,Random UR Comments: Test performed at:[facility] [address] [place] [address] MALB:CREAT 15.9 {mg/g_CRE} (Normal) MICROALBUMIN,UR 19.2 mg/L (Normal) UR CREAT 120.3 mg/dL (Normal) :43 Thyroid Stim Hormone (TSH) Comments: Test performed at:[facility] [address] [place] [address] TSH 2.19 {uIU/mL} (Normal) Range: 0.358-3.74 :43 Vitamin B12 261 pg/mL (Normal) Comments: Test performed at:[facility] [address] [place] [address] Range: 211-911 Comments: ADDENDA: nl and pt has apt tomorrow :43 Vitamin D,25 Hydroxy Comments: Test performed at:[facility] [address] [place] [address] Vitamin D 25-OH 30.9 ng/mL (Normal) Comments: Vitamin D 25(OH) Status Range Deficiency <20 ng/mL (50nmol/L) Insuffciency 20 - 30 ng/mL (50 - 75 nmol/L) Sufficiency 30 - 100 ng/mL (75 - 250 nmol/L) Toxicity >100 ng/mL (>250 nmol/L) :38 HgA1C , Office (02204) HgA1C , Office 6.7 % (Normal) Range: 4.6 - 7.1 :56 AFP, Tumor Marker Comments: Is Patient ? NTest performed at:[facility] [address] [place] [address] ; appt 02/15 AFP TUMOR 2253 4.8 ng/mL (Normal) Range: 0.0-8.3 Comments: [employer] ECLIA methodologyPerformed at: [facility] - [facility] [address] [id number] Director: Arnold Jefferson PhD, Phone: [phone] CBC W/Diff, Automated Comments: Test performed at:[facility] [address] [place] [address] Absolute Lymph 2.37 {X10_3/ul} (Normal) Range: 0.83-4.51 Absolute Neut 4.7 {X10_3/uL} (Normal) Range: 2.0-7.7 IM GRAN % 0.500 % (Normal) Range: 0.0-0.9 Comments: IG% - Immature Granulocytes (promyelocytes, myelocytes andmetamyelocytes) > 1% indicates that a LEFT SHIFT is Present. BASO% 0.5 % (Normal) Range: 0-1 EO% 2.2 % (Normal) Range: 0-5 MONO% 9.3 % (Normal) Range: 0-10 LY% 29.4 % (Normal) Range: 19-41 NEUT% 58.1 % (Normal) Range: 47-70 MPV 9.9 fL (Normal) Range: 6.2-12.0 PLT 225 K/mm3 (Normal) Range: 150-450 RDW SD 46.8 fL (Abnormal) Range: 35.1-43.9 RDW CV 14.6 % (Normal) Range: 11.6-14.6 MCHC 31.5 {g/gl} (Abnormal) Range: 32-36 MCH 28.6 pg (Normal) Range: 27.0-32.0 MCV 90.8 fL (Normal) Range: 81-99 HCT 34.6 % (Abnormal) Range: 37-47 HGB 10.9 g/dL (Abnormal) Range: 12.0-15.0 RBC 3.81 {M/mm3} (Abnormal) Range: 4.2-5.4 WBC 8.1 K/mm3 (Normal) Range: 4.4-11.0 :56 Lipid Profile Comments: Test performed at:[facility] [address] [place], [place] [id number] VLDL 26 mg/dL (Normal) Range: 5-40 LDL 74 mg/dL (Normal) Range: 0-130 HDL 62 mg/dL (Normal) Comments: Reference Range HDL <40 mg/dL Low HDL Cholesterol HDL >or= 60 mg/dL High HDL Cholesterol TRIG 128 mg/dL (Normal) Range: 0-199 Comments: Serum Triglycerides Reference Interval Normal <150 mg/dL Borderline high 150 - 199 mg/dL High 200 - 499 mg/dL Very High > or = 500 mg/dL CHOL 162 mg/dL (Normal) Comments: <200 mg/dL Desirable 200-240 mg/dL Borderline >240 mg/dL High Risk :56 Partial Thromboplast Time Comments: Test performed at:[facility] [address] [place] [address] PTT 30.1 s (Normal) Range: 24.1-36.2 :56 Prothrombin Time w/INR Comments: Test performed at:[facility] [address] [place] [address] INR 1.0 (Normal) PROTIME 12.8 s (Normal) Range: 11.7-14.9 :56 Thyroid Stim Hormone (TSH) Comments: Test performed at:[facility] [address] [place] [address] TSH 5.17 {uIU/mL} (Abnormal) Range: 0.358-3.74 :56 Vitamin B12 293 pg/mL (Normal) Comments: Test performed at:[facility] [address] [place] [address] Range: 211-911 :56 Vitamin D,25 Hydroxy Comments: Test performed at:[facility] [address] [place] [address] Vitamin D 25-OH 32.0 ng/mL (Normal) Comments: Vitamin D 25(OH) Status Range Deficiency <20 ng/mL (50nmol/L) Insuffciency 20 - 30 ng/mL (50 - 75 nmol/L) Sufficiency 30 - 100 ng/mL (75 - 250 nmol/L) Toxicity >100 ng/mL (>250 nmol/L) :07 HgA1C , Office (90331) HgA1C , Office 6.3 % (Normal) Range: 4.6 - 7.1 :33 CBC W/Diff, Automated Comments: Test performed at:[facility] [address] [place] [address] ; non- emergent till apt Absolute Lymph 1.51 {X10_3/ul} (Normal) Range: 0.83-4.51 Absolute Neut 4.7 {X10_3/uL} (Normal) Range: 2.0-7.7 IM GRAN % 0.100 % (Normal) Range: 0.0-0.9 Comments: IG% - Immature Granulocytes (promyelocytes, myelocytes andmetamyelocytes) > 1% indicates that a LEFT SHIFT is Present. BASO% 0.7 % (Normal) Range: 0-1 EO% 6.5 % (Abnormal) Range: 0-5 MONO% 6.9 % (Normal) Range: 0-10 LY% 20.8 % (Normal) Range: 19-41 NEUT% 65.0 % (Normal) Range: 47-70 MPV 9.9 fL (Normal) Range: 6.2-12.0 PLT 215 K/mm3 (Normal) Range: 150-450 RDW SD 43.1 fL (Normal) Range: 35.1-43.9 RDW CV 13.7 % (Normal) Range: 11.6-14.6 MCHC 32.3 {g/gl} (Normal) Range: 32-36 MCH 28.6 pg (Normal) Range: 27.0-32.0 MCV 88.6 fL (Normal) Range: 81-99 HCT 34.1 % (Abnormal) Range: 37-47 HGB 11.0 g/dL (Abnormal) Range: 12.0-15.0 RBC 3.85 {M/mm3} (Abnormal) Range: 4.2-5.4 WBC 7.3 K/mm3 (Normal) Range: 4.4-11.0 84-Dbx-71263:33 Comprehensive Metabolic Profil Comments: Test performed at:[facility] [address] [place], [place] [id number] GAP 4 (Abnormal) Range: 5-15 CO2 28.0 mmol/L (Normal) Range: 21.0-32.0 CL 107 mmol/L (Normal) Range: 98-107 K 4.0 mmol/L (Normal) Range: 3.5-5.1 NA 139 mmol/L (Normal) Range: 136-145 T BILI 0.30 mg/dL (Normal) Range: 0.00-4.00 ALT 22 U/L (Normal) Range: 12-78 ALK P 94 U/L (Normal) Range: 50-136 AST 12 U/L (Abnormal) Range: 15-37 CA 9.4 mg/dL (Normal) Range: 8.5-10.1 A/G 1.1 {RATIO} (Normal) Range: 0.9-2.4 GLOB 3.5 g/dL (Normal) Range: 2.7-4.2 ALB 3.8 g/dL (Normal) Range: 3.4-5.0 T PROT 7.3 g/dL (Normal) Range: 6.4-8.2 BUN/CRE 19.2 {RATIO} (Normal) Range: 10-20 CREAT,SERUM 1.2 mg/dL (Abnormal) Range: 0.6-1.0 BUN 23 mg/dL (Abnormal) Range: 7-18 GLU 124 mg/dL (Abnormal) Range: 70-110 Comments: Fasting Glucose result from 110 to <126 mg/dLsuggests IMPAIRED HOMEOSTASIS per A.D.A. criteria. :33 Lipid Profile Comments: Test performed at:[facility] [address] [place] [address] VLDL 29 mg/dL (Normal) Range: 5-40 LDL 97 mg/dL (Normal) Range: 0-130 HDL 53 mg/dL (Normal) Comments: Reference Range HDL <40 mg/dL Low HDL Cholesterol HDL >or= 60 mg/dL High HDL Cholesterol TRIG 144 mg/dL (Normal) Range: 0-199 Comments: Serum Triglycerides Reference Interval Normal <150 mg/dL Borderline high 150 - 199 mg/dL High 200 - 499 mg/dL Very High > or = 500 mg/dL CHOL 179 mg/dL (Normal) Comments: <200 mg/dL Desirable 200-240 mg/dL Borderline >240 mg/dL High Risk :33 Vitamin B12 394 pg/mL (Normal) Comments: Test performed at:[facility] [address] [facility] [place] [address] Range: 211-911 :33 Vitamin D,25 Hydroxy Comments: Test performed at:[facility] [address] [facility]. [place], [place] [id number] Vitamin D 25-OH 39.6 ng/mL (Normal) Comments: Vitamin D 25(OH) Status Range Deficiency <20 ng/mL (50nmol/L) Insuffciency 20 - 30 ng/mL (50 - 75 nmol/L) Sufficiency 30 - 100 ng/mL (75 - 250 nmol/L) Toxicity >100 ng/mL (>250 nmol/L) :10 HgA1C , Office (77735) HgA1C , Office 6.4 % (Normal) Range: 4.6 - 7.1 :42 B12 328 pg/mL (Normal) Range: 211-911 :42 CBCD Comments: Non-emergent till apt wed. ALC 1.38 {X10_3/ul} (Normal) Range: 0.83-4.51 ANC 3.8 {X10_3/uL} (Normal) Range: 2.0-7.7 IG% 0.200 % (Normal) Range: 0.0-0.9 Comments: IG% - Immature Granulocytes (promyelocytes, myelocytes andmetamyelocytes) > 1% indicates that a LEFT SHIFT is Present. B% 0.5 % (Normal) Range: 0-1 E% 5.6 % (Abnormal) Range: 0-5 M% 7.8 % (Normal) Range: 0-10 L% 22.9 % (Normal) Range: 19-41 N% 63.0 % (Normal) Range: 47-70 MPV 10.1 fL (Normal) Range: 6.2-12.0 PLT 191 K/mm3 (Normal) Range: 150-450 RDWSD 45.3 fL (Abnormal) Range: 35.1-43.9 RDWCV 13.9 % (Normal) Range: 11.6-14.6 MCHC 31.6 {g/gl} (Abnormal) Range: 32-36 MCH 28.1 pg (Normal) Range: 27.0-32.0 MCV 88.8 fL (Normal) Range: 81-99 HCT 34.2 % (Abnormal) Range: 37-47 HGB 10.8 g/dL (Abnormal) Range: 12.0-15.0 RBC 3.85 {M/mm3} (Abnormal) Range: 4.2-5.4 WBC 6.0 K/mm3 (Normal) Range: 4.4-11.0 39-Zvk-52947:42 CMP GAP 5 (Normal) Range: 5-15 CO2 28.0 mmol/L (Normal) Range: 21.0-32.0 CL 107 mmol/L (Normal) Range: 98-107 K 4.2 mmol/L (Normal) Range: 3.5-5.1 NA 140 mmol/L (Normal) Range: 136-145 BIT 0.50 mg/dL (Normal) Range: 0.00-1.00 ALT 21 U/L (Normal) Range: 12-78 ALK 83 U/L (Normal) Range: 45-117 AST 10 U/L (Abnormal) Range: 15-37 CA 9.0 mg/dL (Normal) Range: 8.5-10.1 AG 1.2 {RATIO} (Normal) Range: 0.9-2.4 GLOB 3.1 g/dL (Normal) Range: 2.7-4.2 ALB 3.8 g/dL (Normal) Range: 3.4-5.0 TPROT 6.9 g/dL (Normal) Range: 6.4-8.2 BC 24.2 {RATIO} (Abnormal) Range: 10-20 ECRCL 36.06 ml/min (Normal) CREAT 1.2 mg/dL (Abnormal) Range: 0.6-1.0 BUN 29 mg/dL (Abnormal) Range: 7-18 GLU 139 mg/dL (Abnormal) Range: 70-110 Comments: Fasting Glucose result greater than or equal to 126 mg/dLsuggests DIABETES MELLITUS per A.D.A. criteria. :42 FE 60 ug/dL (Normal) Range: 50-170 :42 CRISTOBAL 95 ng/mL (Normal) Range: 8-252 :42 LIPID LDL 85 mg/dL (Normal) Range: 0-130 VLDL 40 mg/dL (Normal) Range: 5-40 HDL 42 mg/dL (Normal) Comments: Reference RangeHDL <40 mg/dL Low HDL CholesterolHDL >or= 60 mg/dL High HDL Cholesterol CHOL 167 mg/dL (Normal) Comments: <200 mg/dL Sdetrdmga655-161 mg/dL Borderline>240 mg/dL High Risk TRIG 200 mg/dL (Abnormal) Range: 0-199 Comments: Serum Triglycerides Reference IntervalNormal <150 mg/dLBorderline high 150 - 199 mg/dLHigh 200 - 499 mg/ dLVery High > or = 500 mg/dL :42 TIBC 275 ug/dL (Normal) Range: 250-450 :42 TSH 2.12 {uIU/mL} (Normal) Range: 0.358-3.74 26-Cix-280135:10 FERRITIN (99327) Comments: PATIENT NOT FASTINGPERFORMED BY: [facility] Sjjszq0101 [facility] [id number] Ferritin, Serum 133 ng/mL (Normal) Range: 15-150 75-Uwf-824824:10 IRON BINDING CAPACITY Comments: PATIENT NOT FASTINGPERFORMED BY: [facility] Kqagmw8294 [facility] [id number] Information: [id number] (TIBC) (40287) Iron Saturation 20 % (Normal) Range: 15-55 Iron, Serum 62 ug/dL (Normal) Range: 35-155 UIBC 241 ug/dL (Normal) Range: 150-375 Iron Bind.Cap.(TIBC) 303 ug/dL (Normal) Range: 250-450 32-Vsp-877197:10 VITAMIN B-12 (CYANOCOBALAMIN) Comments: PATIENT NOT FASTINGPERFORMED BY: [facility] CountyTdjhhx0108 [facility] [id number] (05277) Vitamin B12 421 pg/mL (Normal) Range: 211-946 :10 TSH (12566) Comments: PATIENT NOT FASTINGPERFORMED BY: [facility] Kgqutg6228 [facility] [id number] TSH 1.150 {uIU/mL} (Normal) Range: 0.450-4.500 31-Ndj-962636:37 HgA1C , Office (54167) HgA1C , Office 6.1 % (Normal) Range: 4.6 - 7.1 7-Ejy-543514:10 CBC with manual diff Comments: PATIENT WAS FASTINGPERFORMED BY: [facility] Vndxxs6851 [facility] [id number] Information: [id number] (52143) Immature Grans (Abs) 0.0 {x10E3/uL} (Normal) Range: 0.0-0.1 Immature Granulocytes 0 % (Normal) Range: 0-2 Baso (Absolute) 0.0 {x10E3/uL} (Normal) Range: 0.0-0.2 Eos (Absolute) 0.3 {x10E3/uL} (Normal) Range: 0.0-0.4 Monocytes(Absolute) 0.4 {x10E3/uL} (Normal) Range: 0.1-0.9 Lymphs (Absolute) 1.6 {x10E3/uL} (Normal) Range: 0.7-3.1 Neutrophils (Absolute) 5.8 {x10E3/uL} (Normal) Range: 1.4-7.0 Basos 1 % (Normal) Range: 0-3 Eos 3 % (Normal) Range: 0-5 Monocytes 5 % (Normal) Range: 4-12 Lymphs 20 % (Normal) Range: 14-46 Neutrophils 71 % (Normal) Range: 40-74 Platelets 223 {x10E3/uL} (Normal) Range: 155-379 Comments: Effective January 11, 2014, the reference interval for Platelets will be changing for 13 years and older to: 150 - 379 RDW 14.3 % (Normal) Range: 12.3-15.4 MCHC 31.9 g/dL (Normal) Range: 31.5-35.7 MCH 27.9 pg (Normal) Range: 26.6-33.0 MCV 88 fL (Normal) Range: 79-97 Hematocrit 34.2 % (Normal) Range: 34.0-46.6 Hemoglobin 10.9 g/dL (Abnormal) Range: 11.1-15.9 RBC 3.90 {x10E6/uL} (Normal) Range: 3.77-5.28 WBC 8.2 {x10E3/uL} (Normal) Range: 3.4-10.8 8-Mrs-746425:10 Metabolic Panel, Comprehensive Comments: PATIENT WAS FASTINGPERFORMED BY: [facility] CountyDdwlnc1795 [facility] [id number] ([id number]) ALT (SGPT) 11 [iU]/L (Normal) Range: 0-32 AST (SGOT) 11 [iU]/L (Normal) Range: 0-40 Alkaline Phosphatase, S 92 [iU]/L (Normal) Range: 39-117 Bilirubin, Total 0.3 mg/dL (Normal) Range: 0.0-1.2 A/G Ratio 2.1 (Normal) Range: 1.1-2.5 Globulin, Total 2.0 g/dL (Normal) Range: 1.5-4.5 Albumin, Serum 4.2 g/dL (Normal) Range: 3.5-4.8 Protein, Total, Serum 6.2 g/dL (Normal) Range: 6.0-8.5 Calcium, Serum 9.4 mg/dL (Normal) Range: 8.6-10.2 Carbon Dioxide, Total 24 mmol/L (Normal) Range: 19-28 Comments: Effective January 11, 2014, the reference interval for Carbon Dioxide, Total will be changing to: 0 - 30 days 15 - 27 31 d - 5 months 15 - 26 6 m - 11 months 15 - 25 1 - 12 years 17 - 27 > 12 years 18 - 29 Chloride, Serum 102 mmol/L (Normal) Range: 97-108 Potassium, Serum 4.3 mmol/L (Normal) Range: 3.5-5.2 Sodium, Serum 141 mmol/L (Normal) Range: 134-144 BUN/Creatinine Ratio 23 (Normal) Range: 11-26 eGFR If Africn Am 53 mL/min/1.73 (Abnormal) eGFR If NonAfricn Am 46 mL/min/1.73 (Abnormal) Creatinine, Serum 1.18 mg/dL (Abnormal) Range: 0.57-1.00 BUN 27 mg/dL (Normal) Range: 8-27 Glucose, Serum 129 mg/dL (Abnormal) Range: 65-99 4-Sup-177245:10 Lipid Panel (10694) Comments: PATIENT WAS FASTINGPERFORMED BY: [facility]Co[facility] CountyCudrqf1291 [facility] [id number] LDL/HDL Ratio 1.4 {ratio_units} (Normal) Range: 0.0-3.2 LDL Cholesterol Calc 71 mg/dL (Normal) Range: 0-99 VLDL Cholesterol Priscilla 30 mg/dL (Normal) Range: 5-40 HDL Cholesterol 50 mg/dL (Normal) Comments: According to ATP-III Guidelines, HDL-C >59 mg/dL is considered anegative risk factor for CHD. Triglycerides 150 mg/dL (Abnormal) Range: 0-149 Cholesterol, Total 151 mg/dL (Normal) Range: 100-199 :14 METABOLIC PANEL, Comments: PATIENT NOT FASTINGPERFORMED BY: [facility] Fkueai9326 [facility] [id number] Information: [id number] COMPREHENSIVE (55353) ALT (SGPT) 15 [iU]/L (Normal) Range: 0-32 Alkaline Phosphatase, S 83 [iU]/L (Normal) Range: 39-117 AST (SGOT) 13 [iU]/L (Normal) Range: 0-40 Bilirubin, Total 0.4 mg/dL (Normal) Range: 0.0-1.2 A/G Ratio 2.0 (Normal) Range: 1.1-2.5 Globulin, Total 2.2 g/dL (Normal) Range: 1.5-4.5 Albumin, Serum 4.4 g/dL (Normal) Range: 3.5-4.8 Protein, Total, Serum 6.6 g/dL (Normal) Range: 6.0-8.5 Calcium, Serum 9.9 mg/dL (Normal) Range: 8.6-10.2 Carbon Dioxide, Total 22 mmol/L (Normal) Range: 19-28 Chloride, Serum 103 mmol/L (Normal) Range: 97-108 Potassium, Serum 3.7 mmol/L (Normal) Range: 3.5-5.2 Sodium, Serum 141 mmol/L (Normal) Range: 134-144 BUN/Creatinine Ratio 18 (Normal) Range: 11-26 eGFR If Africn Am 52 mL/min/1.73 (Abnormal) eGFR If NonAfricn Am 45 mL/min/1.73 (Abnormal) Creatinine, Serum 1.20 mg/dL (Abnormal) Range: 0.57-1.00 BUN 22 mg/dL (Normal) Range: 8-27 Glucose, Serum 133 mg/dL (Abnormal) Range: 65-99 :14 TSH (55416) Comments: PATIENT NOT FASTINGPERFORMED BY: [facility]Co[facility] CountyMwzgvm7478 [facility] [id number] TSH 0.182 {uIU/mL} (Abnormal) Range: 0.450-4.500 :40 B12 606 pg/mL (Normal) Range: 211-911 :40 CBCD ANC 2.9 {X10_3/uL} (Normal) Range: 2.0-7.7 IG% 0.200 % (Normal) Range: 0.0-0.9 Comments: IG% - Immature Granulocytes (promyelocytes, myelocytes andmetamyelocytes) > 1% indicates that a LEFT SHIFT is Present. B% 0.6 % (Normal) Range: 0-1 E% 16.1 % (Abnormal) Range: 0-5 M% 7.6 % (Normal) Range: 0-10 L% 22.4 % (Normal) Range: 19-41 N% 53.1 % (Normal) Range: 47-70 MPV 10.6 fL (Normal) Range: 6.2-12.0 PLT 201 K/mm3 (Normal) Range: 150-450 RDWSD 43.8 fL (Normal) Range: 35.1-43.9 RDWCV 14.3 % (Normal) Range: 11.6-14.6 MCHC 31.9 {g/gl} (Abnormal) Range: 32-36 MCH 27.4 pg (Normal) Range: 27.0-32.0 MCV 85.9 fL (Normal) Range: 81-99 HCT 33.5 % (Abnormal) Range: 37-47 HGB 10.7 g/dL (Abnormal) Range: 12.0-15.0 RBC 3.90 {M/mm3} (Abnormal) Range: 4.2-5.4 WBC 5.4 K/mm3 (Normal) Range: 4.4-11.0 :40 CMP GAP 10 (Normal) Range: 5-15 CO2 26.0 mmol/L (Normal) Range: 21.0-32.0 CL 102 mmol/L (Normal) Range: 98-107 K 4.1 mmol/L (Normal) Range: 3.5-5.1 NA 138 mmol/L (Normal) Range: 136-145 BIT 0.60 mg/dL (Normal) Range: 0.00-1.00 ALT 30 U/L (Normal) Range: 12-78 ALK 89 U/L (Normal) Range: 50-136 AST 20 U/L (Normal) Range: 15-37 CA 9.6 mg/dL (Normal) Range: 8.5-10.1 AG 1.2 {RATIO} (Normal) Range: 0.9-2.4 GLOB 3.2 g/dL (Normal) Range: 2.7-4.2 ALB 3.8 g/dL (Normal) Range: 3.4-5.0 BC 18.5 {RATIO} (Normal) Range: 10-20 TPROT 7.0 g/dL (Normal) Range: 6.4-8.2 CREAT 1.3 mg/dL (Abnormal) Range: 0.6-1.0 BUN 24 mg/dL (Abnormal) Range: 7-18 GLU 114 mg/dL (Abnormal) Range: 70-110 Comments: Fasting Glucose result from 110 to <126 mg/dLsuggests IMPAIRED HOMEOSTASIS per A.D.A. criteria. :40 LIPID VLDL 21 mg/dL (Normal) Range: 5-40 HDL 39 mg/dL (Abnormal) Comments: Reference RangeHDL <40 mg/dL Low HDL CholesterolHDL >or= 60 mg/dL High HDL Cholesterol LDL 39 mg/dL (Normal) Range: 0-130 TRIG 107 mg/dL (Normal) Range: 0-199 Comments: Serum Triglycerides Reference IntervalNormal <150 mg/dLBorderline high 150 - 199 mg/dLHigh 200 - 499 mg/ dLVery High > or = 500 mg/dL CHOL 99 mg/dL (Normal) Comments: <200 mg/dL Lrjdlrrrw676-025 mg/dL Borderline>240 mg/dL High Risk :40 MIACRE tMICROCREAT 9.1 {mg/g_CRE} (Normal) MIALB 13.6 mg/L (Normal) CREU 148.3 mg/dL (Normal) :36 B12 385 pg/mL (Normal) Range: 211-911 :36 CBCD ANC 5.8 {X10_3/uL} (Normal) Range: 2.0-7.7 B% 0.3 % (Normal) Range: 0-1 IG% 0.300 % (Normal) Range: 0.0-0.9 Comments: IG% - Immature Granulocytes (promyelocytes, myelocytes andmetamyelocytes) > 1% indicates that a LEFT SHIFT is Present. E% 2.4 % (Normal) Range: 0-5 M% 5.1 % (Normal) Range: 0-10 L% 18.4 % (Abnormal) Range: 19-41 MPV 9.7 fL (Normal) Range: 6.2-12.0 N% 73.5 % (Abnormal) Range: 47-70 PLT 232 K/mm3 (Normal) Range: 150-450 RDWSD 46.9 fL (Abnormal) Range: 35.1-43.9 RDWCV 14.3 % (Normal) Range: 11.6-14.6 MCHC 32.1 {g/gl} (Normal) Range: 32-36 MCH 28.5 pg (Normal) Range: 27.0-32.0 MCV 88.8 fL (Normal) Range: 81-99 HCT 34.9 % (Abnormal) Range: 37-47 HGB 11.2 g/dL (Abnormal) Range: 12.0-15.0 RBC 3.93 {M/mm3} (Abnormal) Range: 4.2-5.4 WBC 7.8 K/mm3 (Normal) Range: 4.4-11.0 :36 CMP GAP 9 (Normal) Range: 5-15 CO2 29.0 mmol/L (Normal) Range: 21.0-32.0 CL 104 mmol/L (Normal) Range: 98-107 K 4.0 mmol/L (Normal) Range: 3.5-5.1 NA 142 mmol/L (Normal) Range: 136-145 BIT 0.30 mg/dL (Normal) Range: 0.00-1.00 ALT 29 U/L (Normal) Range: 12-78 ALK 103 U/L (Normal) Range: 50-136 AST 24 U/L (Normal) Range: 15-37 CA 8.6 mg/dL (Normal) Range: 8.5-10.1 AG 1.1 {RATIO} (Normal) Range: 0.9-2.4 GLOB 3.3 g/dL (Normal) Range: 2.7-4.2 ALB 3.7 g/dL (Normal) Range: 3.4-5.0 TPROT 7.0 g/dL (Normal) Range: 6.4-8.2 BC 20.0 {RATIO} (Normal) Range: 10-20 CREAT 0.9 mg/dL (Normal) Range: 0.6-1.0 BUN 18 mg/dL (Normal) Range: 7-18 GLU 168 mg/dL (Abnormal) Range: 70-110 Comments: Fasting Glucose result greater than or equal to 126 mg/dLsuggests DIABETES MELLITUS per A.D.A. criteria. :36 LIPID LDL 61 mg/dL (Normal) Range: 0-130 VLDL 41 mg/dL (Abnormal) Range: 5-40 CHOL 148 mg/dL (Normal) Comments: <200 mg/dL Jvvhnxmiy444-779 mg/dL Borderline>240 mg/dL High Risk HDL 46 mg/dL (Normal) Comments: Reference RangeHDL <40 mg/dL Low HDL CholesterolHDL >or= 60 mg/dL High HDL Cholesterol TRIG 206 mg/dL (Abnormal) Range: 0-199 Comments: Serum Triglycerides Reference IntervalNormal <150 mg/dLBorderline high 150 - 199 mg/dLHigh 200 - 499 mg/ dLVery High > or = 500 mg/dL :36 MIACRE tMICROCREAT 51.8 {mg/g_CRE} (Abnormal) MIALB 125.0 mg/L (Normal) CREU 241.1 mg/dL (Normal) :36 VITD 46.9 mg/mL (Normal) Comments: Vitamin D 25(OH) Status RangeDeficiency <20 ng/mL (50nmol/L)Insuffciency 20 - 30 ng/mL (50 - 75 nmol/L)Sufficiency 30 - 100 ng/mL (75 - 250 nmol/L)Toxicity >100 ng/mL (>250 nmol/L) 40-Eol-295295:27 HgA1C , Office (34654) HgA1C , Office 6.7 % (Normal) Range: 4.6 - 7.1 :17 METABOLIC PANEL, COMPREHENSIVE Comments: PATIENT WAS FASTINGPERFORMED BY: [facility] [id number] [facility] [id number] ([id number]) ALT (SGPT) 16 [iU]/L (Normal) Range: 0-32 AST (SGOT) 13 [iU]/L (Normal) Range: 0-40 Alkaline Phosphatase, S 86 [iU]/L (Normal) Range: 45-108 Bilirubin, Total 0.4 mg/dL (Normal) Range: 0.0-1.2 A/G Ratio 2.0 (Normal) Range: 1.1-2.5 Globulin, Total 2.3 g/dL (Normal) Range: 1.5-4.5 Albumin, Serum 4.5 g/dL (Normal) Range: 3.5-4.8 Protein, Total, Serum 6.8 g/dL (Normal) Range: 6.0-8.5 Calcium, Serum 9.6 mg/dL (Normal) Range: 8.6-10.2 Carbon Dioxide, Total 24 mmol/L (Normal) Range: 19-28 Chloride, Serum 101 mmol/L (Normal) Range: 97-108 Potassium, Serum 4.0 mmol/L (Normal) Range: 3.5-5.2 Sodium, Serum 141 mmol/L (Normal) Range: 134-144 BUN/Creatinine Ratio 23 (Normal) Range: 11-26 eGFR If Africn Am 70 mL/min/1.73 (Normal) eGFR If NonAfricn Am 61 mL/min/1.73 (Normal) Creatinine, Serum 0.94 mg/dL (Normal) Range: 0.57-1.00 BUN 22 mg/dL (Normal) Range: 8-27 Glucose, Serum 150 mg/dL (Abnormal) Range: 65-99 :17 LIPID PANEL (50788) Comments: PATIENT WAS FASTINGPERFORMED BY: [facility] Lojiug4557 [facility] [id number] LDL/HDL Ratio 2.0 {ratio_units} (Normal) Range: 0.0-3.2 LDL Cholesterol Calc 103 mg/dL (Abnormal) Range: 0-99 HDL Cholesterol 52 mg/dL (Normal) Comments: According to ATP-III Guidelines, HDL-C >59 mg/dL is considered anegative risk factor for CHD. VLDL Cholesterol Priscilla 56 mg/dL (Abnormal) Range: 5-40 Triglycerides 278 mg/dL (Abnormal) Range: 0-149 Cholesterol, Total 211 mg/dL (Abnormal) Range: 100-199 :17 CBC WITH MANUAL DIFF Comments: PATIENT WAS FASTINGPERFORMED BY: [facility]6370 [facility] [id number] Information: [id number] (80068) Immature Grans (Abs) 0.0 {x10E3/uL} (Normal) Range: 0.0-0.1 Immature Granulocytes 0 % (Normal) Range: 0-2 Baso (Absolute) 0.0 {x10E3/uL} (Normal) Range: 0.0-0.2 Eos (Absolute) 0.2 {x10E3/uL} (Normal) Range: 0.0-0.4 Monocytes(Absolute) 0.5 {x10E3/uL} (Normal) Range: 0.1-1.0 Lymphs (Absolute) 1.4 {x10E3/uL} (Normal) Range: 0.7-4.5 Neutrophils (Absolute) 5.1 {x10E3/uL} (Normal) Range: 1.8-7.8 Basos 0 % (Normal) Range: 0-3 Eos 3 % (Normal) Range: 0-7 Monocytes 7 % (Normal) Range: 4-13 Lymphs 19 % (Normal) Range: 14-46 Neutrophils 71 % (Normal) Range: 40-74 Platelets 242 {x10E3/uL} (Normal) Range: 140-415 Comments: Effective April 06, 2013, the reference intervals for CBC:WBC, Differential Parameters (Neutrophil %, Neutrophil Absolute, Lymphocyte %, Lymphocyte Absolute, Monocyte %, Monocyte Absolute, Eos inophil %, Eosinophil Absolute), and Platelet Counts will be adjusted to maintain consistency with the distribution of these values in the reference population. RDW 15.0 % (Normal) Range: 12.3-15.4 MCHC 33.0 g/dL (Normal) Range: 31.5-35.7 MCH 29.1 pg (Normal) Range: 26.6-33.0 MCV 88 fL (Normal) Range: 79-97 Hematocrit 34.5 % (Normal) Range: 34.0-46.6 Hemoglobin 11.4 g/dL (Normal) Range: 11.1-15.9 RBC 3.92 {x10E6/uL} (Normal) Range: 3.77-5.28 WBC 7.3 {x10E3/uL} (Normal) Range: 4.0-10.5 Comments: Effective April 06, 2013, the reference intervals for CBC:WBC, Differential Parameters (Neutrophil %, Neutrophil Absolute, Lymphocyte %, Lymphocyte Absolute, Monocyte %, Monocyte Absolute, Eos inophil %, Eosinophil Absolute), and Platelet Counts will be adjusted to maintain consistency with the distribution of these values in the reference population. :17 VITAMIN B-12 (CYANOCOBALAMIN) Comments: PATIENT WAS FASTINGPERFORMED BY: [facility] [id number] [facility] [place] [id number] ([id number]) Vitamin B12 696 pg/mL (Normal) Range: 211-946 :17 Vitamin D Hydroxy (28397) Comments: PATIENT WAS FASTINGPERFORMED BY: [facility] [id number] [address] RoadDublin [place] [id number] Vitamin D, 25-Hydroxy 29.3 ng/mL (Abnormal) Range: 30.0-100.0 Comments: Vitamin D deficiency has been defined by the [place] [facility] and an Endocrine Society practice guideline as alevel of serum 25-OH vitamin D less than 20 ng/mL (1,2).The Endocrine Society went on to further define vitamin Dinsufficiency as a level between 21 and 29 ng/mL (2).1. IOM ([place] of [employer]). 2010. Dietary reference intakes for calcium and D. [place]: The National Academies Press.2. Rachel MF, Yael NC, Dunia HERRERA, et al. Evaluation, treatment, and prevention of vitamin D deficiency: an Endocrine Society clinical practice guideline. JCEM. 2010; 96(7):1911-30. :29 HgA1C , Office (57501) HgA1C , Office 7.0 % (Normal) Range: 4.6 - 7.1 :14 B12 794 pg/mL (Normal) Range: 211-911 Comments: Effective 2012:14 VITD 37.5 ng/mL (Normal) Comments: Vitamin D 25(OH) Status RangeDeficiency <20 ng/mL (50nmol/L)Insufficiency 20 - 30 ng/mL (50 - 75 nmol/L)Sufficiency 30 - 100 ng/mL (75 - 250 nm ol/L)Toxicity >100 ng/mL (250 nmol/L)Effective 201201-Dec-20129-Odr-539081:13 CHEST PA AND LATERAL Radiology Report See Note (Normal) Comments: PROCEDURE: X-RAY CHEST REASON FOR EXAM: Female, 72 years old. Persistent cough. TECHNIQUE: PA and lateral views of the chest. COMPARISON: May 22, 2012 FINDINGS: The lungs are hyper expanded , with flattening of the hemidiaphragms.Thereis no demonstrated parenchymal abnormality. Opacity in the left lungbaseis most consistent with rim calcification. There is mild cardiac enlargement. Normal mediastinum and pete. Normal visualized pulmonary arteries.Normalvisualized aortic arch and descending thoracic aorta. There is a levoscoliosis of the lower thoracic spine. Healed ribfractureson the right are demonstrated. There is no demonstrated abnormality of the visualized soft tissuestructures of the upper abdomen. IMPRESSION:No acute airspace opacities are demonstrated. Mild cardiomegaly. Sco liosis. Signed:Eulalio Tate D.O.December 01, 2012 at 12:40:54 PM [id number] Signed DS/DS If you are the referring physician and would like to consult with theradiologist who provided this i nterpretation, please contact Eulalio Tate D.O. at [phone]. If this radiologist is unavailable, you will bedirected to another radiologist to assist. If you are a patient with a question regarding t his report, pleasecontactyour referring physician directly. Professional Interpretation Provided By: [employer], Phone , These documents contain legally protected and conf idential healthinformation intended only for the use of the individual or entity namedabove. If you are not the intended recipient, you are hereby notifiedthatany disclosure, copying, distribution, or o ther use of these documents isstrictly prohibited. If you have received this information in error,pleasenotify the sender immediately and arrange for the return or destructionofthese documents. Dicta gómez on 12/01/12 1040 by Carlos Alberto Peterson DOribed on 12/01/12 1243 by ITS IMPORTSign by Mack Peterson DO on 12/01/12 1244 Sign by: Mack Peterson DO 95-Nox-872740:20 Upper Respiratory Culture Comments: PATIENT NOT FASTINGPERFORMED BY: [facility] CountyZskewj7008 [place] [id number] Information: SRC: THROAT Result 1 RRF (Normal) Comments: Routine respiratory alton Upper Respiratory Culture Final report (Normal) 09-Wys-387111:06 Rapid Strep Test, Office (74845) Rapid Strep Test, Office Negative (Normal) 73-Dtu-382494:32 BILAT SCRN DIGITAL & CAD Radiology Report See Note (Normal) Comments: MAMMOGRAPHY - BILATERAL SCREENING REASON FOR EXAM: Female, 72 years old. Routine annual screeningexamination. PERTINENT HISTORY: Non-contributory. TECHNIQUE: Digital examination. Med iolateral ob lique (MLO) andcraniocaudad (CC) views of both breasts were obtained. CAD: CAD wasperformed on this study. COMPARISON: Comparison is made with prior study dated September 18nd February 22, 2011. FIND INGS:The breast composition is heterogeneously dense. There are no dominant masses or suspicious calcifications. No other significant abnormalities are identified. There has been nosignificant change s jeaneth the prior study. IMPRESSION:Stable bilateral screening mammogram. Yearly follow-up recommended. (A) ASSESSMENT CATEGORY:BIRADS Category 2: Benign finding(s). A letter regarding these resultswi ll be sent to the patient by the facility within 30 days. Approximately 10% of breast cancers are not detected by mammography. Anormal mammogram should not delay biopsy of a clinically suspiciousabnorm ality. Signed:Teo Wayne M.D.November 18, 2012 at 12:51:57 PM [id number] Signed GP/GP If you are the referring physician and would like to consult with theradiologist who provid ed this interpretation, please contact Lee Claudio at [phone]. If this radiologist is unavailable, youwill be directed to another radiologist to assist. If you are a patient with a ques tion regarding this report, pleasecontactyour referring physician directly. Professional Interpretation Provided By: [employer], Phone , These documents contain legally pr otected and confidential healthinformation intended only for the use of the individual or entity namedabove. If you are not the intended recipient, you are hereby notifiedthatany disclosure, copying, di stribution, or other use of these documents isstrictly prohibited. If you have received this information in error,pleasenotify the sender immediately and arrange for the return or destructionofthese doc uments. Dictated on 11/18/12 [address],Davidranscribed on 11/18/12 1253 by ITS IMPORTSign by Hema STREETER,Teo on 11/18/12 1254 Sign by: Teo Wayne MD 6-Tak-077347:24 URINE RANI CULTURE-IDENTIFICATN Comments: PATIENT NOT FASTINGPERFORMED BY: Alexandre de ParisClovis Baptist HospitalEsegpl3776 [facility] [id number] Information: [id number] (34303) Result 1 MUG (Normal) Comments: Mixed urogenital flora10,000-25,000 colony forming units per mL Urine Final report (Normal) Culture,Comprehensive 10-Guv-772052:50 METABOLIC PANEL, Comments: PATIENT NOT FASTINGPERFORMED BY: Shake Swyqev8764 [facility] [id number] Information: ADD [id number] AND DRAW FEE 99 [id number] COMPREHENSIVE (86984) ALT (SGPT) 14 [iU]/L (Normal) Range: 0-32 AST (SGOT) 14 [iU]/L (Normal) Range: 0-40 Alkaline Phosphatase, S 90 [iU]/L (Normal) Range: 25-165 Bilirubin, Total 0.3 mg/dL (Normal) Range: 0.0-1.2 A/G Ratio 2.0 (Normal) Range: 1.1-2.5 Globulin, Total 2.2 g/dL (Normal) Range: 1.5-4.5 Albumin, Serum 4.5 g/dL (Normal) Range: 3.5-4.8 Protein, Total, Serum 6.7 g/dL (Normal) Range: 6.0-8.5 Calcium, Serum 9.2 mg/dL (Normal) Range: 8.6-10.2 Carbon Dioxide, Total 25 mmol/L (Normal) Range: 20-32 Chloride, Serum 102 mmol/L (Normal) Range: 97-108 Potassium, Serum 4.0 mmol/L (Normal) Range: 3.5-5.2 Sodium, Serum 143 mmol/L (Normal) Range: 134-144 BUN/Creatinine Ratio 24 (Normal) Range: 11-26 eGFR If Africn Am 99 mL/min/1.73 (Normal) eGFR If NonAfricn Am 86 mL/min/1.73 (Normal) Creatinine, Serum 0.71 mg/dL (Normal) Range: 0.57-1.00 BUN 17 mg/dL (Normal) Range: 8-27 Glucose, Serum 109 mg/dL (Abnormal) Range: 65-99 7-Dvv-774709:42 HgA1C , Office (25065) HgA1C , Office 6.3 % (Normal) Range: 4.6 - 7.1 :04 Microscopic Examination Comments: PATIENT NOT FASTINGPERFORMED BY: Fluid Stone [place] [id number] Bacteria Few (Normal) Mucus Threads Present (Normal) Cast Type Hyaline casts (Normal) Casts Present {/lpf} (Abnormal) Epithelial Cells (non renal) 0-10 {/hpf} (Normal) Range: 0 - 10 RBC 0-3 {/hpf} (Normal) Range: 0 - 3 WBC 6-10 {/hpf} (Abnormal) Range: 0 - 5 :04 VITAMIN B-12 (CYANOCOBALAMIN) Comments: PATIENT NOT FASTINGPERFORMED BY: [employer]70 [employer] [place] [id number] (51483) Vitamin B12 1228 pg/mL (Abnormal) Range: 211-946 :04 Vitamin D Hydroxy (00081) Comments: PATIENT NOT FASTINGPERFORMED BY: Fl[place] [id number] Vitamin D, 25-Hydroxy 21.9 ng/mL (Abnormal) Range: 30.0-100.0 Comments: Vitamin D deficiency has been defined by the [place] ofMedicine and an Endocrine Society practice guideline as alevel of serum 25-OH vitamin D less than 20 ng/mL (1,2).The Endocrine Society went on to further define vitamin Dinsufficiency as a level between 21 and 29 ng/mL (2).1. IOM ([place] of Medicine). 2010. Dietary reference intakes for calcium and D. [place]: The National Academies Press.2. Rachel MF, Yael MARLEY, Dunia HERRERA, et al. Evaluation, treatment, and prevention of vitamin D deficiency: an Endocrine Society clinical practice guideline. JCEM. 2010; 96(7):1911-30. :04 URINALYSIS, W/ MICRO (16754) Comments: PATIENT NOT FASTINGPERFORMED BY: [employer]70 [facility] [id number] Microscopic Examination See below: (Normal) Nitrite, Urine Negative (Normal) Bilirubin Negative (Normal) Urobilinogen,Semi-Qn 0.2 mg/dL (Normal) Range: 0.0-1.9 Occult Blood Negative (Normal) Ketones Negative (Normal) Glucose Negative (Normal) Protein Negative (Normal) WBC Esterase 1+ (Abnormal) Appearance Clear (Normal) Urine-Color Yellow (Normal) pH 5.5 (Normal) Range: 5.0-7.5 Specific [place] 1.024 (Normal) Range: 1.005-1.030 :04 CBC WITH MANUAL DIFF Comments: PATIENT NOT FASTINGPERFORMED BY: [employer] [facility] [employer] Tqthhr6916 [facility] [id number] Information: [id number] (27187) Immature Grans (Abs) 0.0 {x10E3/uL} (Normal) Range: 0.0-0.1 Immature Granulocytes 0 % (Normal) Range: 0-2 Baso (Absolute) 0.0 {x10E3/uL} (Normal) Range: 0.0-0.2 Eos (Absolute) 0.2 {x10E3/uL} (Normal) Range: 0.0-0.4 Monocytes(Absolute) 0.5 {x10E3/uL} (Normal) Range: 0.1-1.0 Lymphs (Absolute) 1.4 {x10E3/uL} (Normal) Range: 0.7-4.5 Neutrophils (Absolute) 5.1 {x10E3/uL} (Normal) Range: 1.8-7.8 Basos 0 % (Normal) Range: 0-3 Eos 3 % (Normal) Range: 0-7 Monocytes 7 % (Normal) Range: 4-13 Lymphs 19 % (Normal) Range: 14-46 Neutrophils 71 % (Normal) Range: 40-74 Platelets 222 {x10E3/uL} (Normal) Range: 140-415 RDW 15.7 % (Abnormal) Range: 12.3-15.4 MCHC 32.2 g/dL (Normal) Range: 31.5-35.7 MCH 27.2 pg (Normal) Range: 26.6-33.0 MCV 84 fL (Normal) Range: 79-97 Hematocrit 36.3 % (Normal) Range: 34.0-46.6 Hemoglobin 11.7 g/dL (Normal) Range: 11.1-15.9 RBC 4.30 {x10E6/uL} (Normal) Range: 3.77-5.28 WBC 7.2 {x10E3/uL} (Normal) Range: 4.0-10.5 28-Rks-66591:04 METABOLIC PANEL, COMPREHENSIVE Comments: PATIENT NOT FASTINGPERFORMED BY: LabCoL[facility] of Burlington CountySkdwgq6280 [facility] [id number] (91935) ALT (SGPT) 13 [iU]/L (Normal) Range: 0-32 AST (SGOT) 10 [iU]/L (Normal) Range: 0-40 Alkaline Phosphatase, S 93 [iU]/L (Normal) Range: 25-165 Bilirubin, Total 0.3 mg/dL (Normal) Range: 0.0-1.2 A/G Ratio 1.8 (Normal) Range: 1.1-2.5 Globulin, Total 2.4 g/dL (Normal) Range: 1.5-4.5 Albumin, Serum 4.4 g/dL (Normal) Range: 3.5-4.8 Protein, Total, Serum 6.8 g/dL (Normal) Range: 6.0-8.5 Calcium, Serum 9.4 mg/dL (Normal) Range: 8.6-10.2 Carbon Dioxide, Total 22 mmol/L (Normal) Range: 20-32 Chloride, Serum 101 mmol/L (Normal) Range: 97-108 Potassium, Serum 4.0 mmol/L (Normal) Range: 3.5-5.2 Sodium, Serum 141 mmol/L (Normal) Range: 134-144 BUN/Creatinine Ratio 23 (Normal) Range: 11-26 eGFR If Africn Am 93 mL/min/1.73 (Normal) eGFR If NonAfricn Am 80 mL/min/1.73 (Normal) Creatinine, Serum 0.75 mg/dL (Normal) Range: 0.57-1.00 BUN 17 mg/dL (Normal) Range: 8-27 Glucose, Serum 125 mg/dL (Abnormal) Range: 65-99 :04 LIPID PANEL (28716) Comments: PATIENT NOT FASTINGPERFORMED BY: [employer] [address] [id number] LDL Cholesterol Calc 103 mg/dL (Abnormal) Range: 0-99 LDL/HDL Ratio 2.0 {ratio_units} Range: 0.0-3.2 (Normal) VLDL Cholesterol Priscilla 55 mg/dL (Abnormal) Range: 5-40 HDL Cholesterol 51 mg/dL (Normal) Comments: According to ATP-III Guidelines, HDL-C >59 mg/dL is considered anegative risk factor for CHD. Triglycerides 275 mg/dL (Abnormal) Range: 0-149 Cholesterol, Total 209 mg/dL (Abnormal) Range: 100-199 :35 B12 334 pg/mL (Normal) Range: 211-946 Comments: Performed at: [employer] [facility] [employer] [facility] [address] [id number] Director: Arnold Jefferson PhD, Phone: [phone] :[phone] CMP GAP 9 (Normal) Range: 5-15 CO2 28.0 mmol/L (Normal) Range: 21.0-32.0 CL 105 mmol/L (Normal) Range: 98-107 K 4.1 mmol/L (Normal) Range: 3.5-5.1 NA 142 mmol/L (Normal) Range: 136-145 BIT 0.30 mg/dL (Normal) Range: 0.00-1.00 ALT 21 U/L (Normal) Range: 12-78 ALK 90 U/L (Normal) Range: 50-136 AST 10 U/L (Abnormal) Range: 15-37 CA 9.1 mg/dL (Normal) Range: 8.5-10.1 AG 1.1 {RATIO} (Normal) Range: 0.9-2.4 GLOB 3.4 g/dL (Normal) Range: 2.7-4.2 ALB 3.8 g/dL (Normal) Range: 3.4-5.0 TPROT 7.2 g/dL (Normal) Range: 6.4-8.2 BC 22.2 {RATIO} (Abnormal) Range: 10-20 CREAT 0.9 mg/dL (Normal) Range: 0.6-1.0 BUN 20 mg/dL (Abnormal) Range: 7-18 GLU 126 mg/dL (Abnormal) Range: 70-110 Comments: Fasting Glucose result greater than or equal to 126 mg/dL suggests DIABETES MELLITUS per A.D.A. criteria. :35 LIPID VLDL 44 mg/dL (Abnormal) Range: 5-40 LDL 96 mg/dL (Normal) Range: 0-130 HDL 55 mg/dL (Normal) Comments: Reference Range HDL <40 mg/dL Low HDL Cholesterol HDL >or= 60 mg/dL High HDL Cholesterol TRIG 220 mg/dL (Abnormal) Comments: Serum Triglycerides Reference Interval Normal <150 mg/dL Borderline high 150 - 199 mg/dL High 200 - 499 mg/dL Very High > or = 500 mg/dL CHOL 195 mg/dL (Normal) Comments: <200 mg/dL Desirable 200-240 mg/dL Borderline >240 mg/dL High Risk :35 TSH 3.38 {uIU/mL} (Normal) Range: 0.358-3.74 :35 VITD 29.4 ng/mL (Normal) Comments: Vitamin D 25(OH) Status Range Deficiency <20 ng/mL (50nmol/L) Insufficiency 20 - 30 ng/mL (50 - 75 nmol/L) Sufficiency 30 - 100 ng/mL (7 5 - 250 nmol/L) Toxicity >100 ng/mL (250 nmol/L)Effective 201215-Aug-201235-Zrh-343792:20 Metabolic Panel, Basic Comments: PATIENT NOT FASTINGPERFORMED BY: [facility].tvWalter P. [facility] Hospital6370 [facility] [id number] Information: [id number] ([id number]) Calcium, Serum 10.2 mg/dL (Normal) Range: 8.6-10.2 Carbon Dioxide, Total 24 mmol/L (Normal) Range: 20-32 Chloride, Serum 101 mmol/L (Normal) Range: 97-108 Potassium, Serum 4.9 mmol/L (Normal) Range: 3.5-5.2 Sodium, Serum 140 mmol/L (Normal) Range: 134-144 BUN/Creatinine Ratio 24 (Normal) Range: 11-26 eGFR If Africn Am 73 mL/min/1.73 (Normal) eGFR If NonAfricn Am 64 mL/min/1.73 (Normal) Creatinine, Serum 0.91 mg/dL (Normal) Range: 0.57-1.00 BUN 22 mg/dL (Normal) Range: 8-27 Glucose, Serum 99 mg/dL (Normal) Range: 65-99 0-Ljw-188033:24 Microscopic Examination Comments: PATIENT NOT FASTINGPERFORMED BY: [facility].tvWalter P. [facility] Hospital6370 [facility] [id number] Bacteria Few (Normal) Mucus Threads Present (Normal) Epithelial Cells (non renal) 0-10 {/hpf} (Normal) Range: 0 - 10 RBC 0-3 {/hpf} (Normal) Range: 0 - 3 WBC 6-10 {/hpf} (Abnormal) Range: 0 - 5 5-Alz-497205:24 Vitamin D Hydroxy (37326) Comments: PATIENT NOT FASTINGPERFORMED BY: [facility]ad.tvWalter P. [facility]uther [facility] Hospital6370 [facility] [id number] Vitamin D, 25-Hydroxy 21.7 ng/mL (Abnormal) Range: 30.0-100.0 Comments: Vitamin D deficiency has been defined by the [place] of[place]icine and an Endocrine Society practice guideline as alevel of serum 25-OH vitamin D less than 20 ng/mL (1,2).The Endocrine Society went on to further define vitamin Dinsufficiency as a level between 21 and 29 ng/mL (2).1. IOM ([place] of Medicine). 2010. Dietary reference intakes for calcium and D. [place]: The National Academies Press.2. Rachel MF, Yael MARLEY, Dunia HERRERA, et al. Evaluation, treatment, and prevention of vitamin D deficiency: an Endocrine Society clinical practice guideline. JCEM. 2010; 96(7):1911-30. 4-Hmy-029031:24 VITAMIN B-12 (CYANOCOBALAMIN) Comments: PATIENT NOT FASTINGPERFORMED BY: [employer]70 [facility] [id number] (07305) Vitamin B12 431 pg/mL (Normal) Range: 211-946 :24 URINALYSIS, W/ MICRO (92879) Comments: PATIENT NOT FASTINGPERFORMED BY: Data[employer]70 [facility] [id number] Microscopic Examination See below: (Normal) Microscopic Examination MICRON (Normal) Comments: Microscopic follows if indicated. Nitrite, Urine Negative (Normal) Urobilinogen,Semi-Qn 0.2 mg/dL (Normal) Range: 0.0-1.9 Bilirubin Negative (Normal) Ketones Negative (Normal) Occult Blood Negative (Normal) Glucose Negative (Normal) Protein Negative (Normal) WBC Esterase Negative (Normal) Appearance Clear (Normal) pH 6.5 (Normal) Range: 5.0-7.5 Urine-Color Yellow (Normal) Specific [place] 1.022 (Normal) Range: 1.005-1.030 :24 CBC WITH MANUAL DIFF Comments: PATIENT NOT FASTINGPERFORMED BY: [employer]6370 [facility]Select [facility] [id number] Information: [id number] (67341) Immature Grans (Abs) 0.0 {x10E3/uL} (Normal) Range: 0.0-0.1 Immature Granulocytes 0 % (Normal) Range: 0-2 Baso (Absolute) 0.1 {x10E3/uL} (Normal) Range: 0.0-0.2 Eos (Absolute) 0.4 {x10E3/uL} (Normal) Range: 0.0-0.4 Monocytes(Absolute) 0.5 {x10E3/uL} (Normal) Range: 0.1-1.0 Lymphs (Absolute) 1.6 {x10E3/uL} (Normal) Range: 0.7-4.5 Neutrophils (Absolute) 5.3 {x10E3/uL} (Normal) Range: 1.8-7.8 Basos 1 % (Normal) Range: 0-3 Eos 5 % (Normal) Range: 0-7 Monocytes 6 % (Normal) Range: 4-13 Lymphs 21 % (Normal) Range: 14-46 Neutrophils 67 % (Normal) Range: 40-74 Platelets 249 {x10E3/uL} (Normal) Range: 140-415 RDW 14.8 % (Normal) Range: 12.3-15.4 MCHC 32.5 g/dL (Normal) Range: 31.5-35.7 MCH 27.4 pg (Normal) Range: 26.6-33.0 MCV 84 fL (Normal) Range: 79-97 Hematocrit 35.7 % (Normal) Range: 34.0-46.6 Hemoglobin 11.6 g/dL (Normal) Range: 11.1-15.9 RBC 4.24 {x10E6/uL} (Normal) Range: 3.77-5.28 WBC 7.9 {x10E3/uL} (Normal) Range: 4.0-10.5 0-Ote-951920:24 METABOLIC PANEL, COMPREHENSIVE Comments: PATIENT NOT FASTINGPERFORMED BY: LabCoLour[facility] of Burlington CountyFwizso0332 [facility] [id number] (14329) ALT (SGPT) 16 [iU]/L (Normal) Range: 0-32 AST (SGOT) 14 [iU]/L (Normal) Range: 0-40 Alkaline Phosphatase, S 97 [iU]/L (Normal) Range: 25-165 Bilirubin, Total 0.4 mg/dL (Normal) Range: 0.0-1.2 A/G Ratio 1.9 (Normal) Range: 1.1-2.5 Globulin, Total 2.3 g/dL (Normal) Range: 1.5-4.5 Albumin, Serum 4.4 g/dL (Normal) Range: 3.5-4.8 Protein, Total, Serum 6.7 g/dL (Normal) Range: 6.0-8.5 Calcium, Serum 9.5 mg/dL (Normal) Range: 8.6-10.2 Carbon Dioxide, Total 23 mmol/L (Normal) Range: 20-32 Chloride, Serum 103 mmol/L (Normal) Range: 97-108 Potassium, Serum 4.6 mmol/L (Normal) Range: 3.5-5.2 Sodium, Serum 140 mmol/L (Normal) Range: 134-144 BUN/Creatinine Ratio 21 (Normal) Range: 11-26 eGFR If Africn Am 88 mL/min/1.73 (Normal) eGFR If NonAfricn Am 77 mL/min/1.73 (Normal) Creatinine, Serum 0.78 mg/dL (Normal) Range: 0.57-1.00 BUN 16 mg/dL (Normal) Range: 8-27 Glucose, Serum 107 mg/dL (Abnormal) Range: 65-99 1-Oer-616723:24 TSH (95496) Comments: PATIENT NOT FASTINGPERFORMED BY: Alexandre de ParisClovis Baptist HospitalBcarnf6210 [facility] [id number] TSH 2.000 {uIU/mL} Range: 0.450-4.500 (Normal) CCP Antibodies IgG/IgA 1 {units} (Normal) Comments: PATIENT NOT FASTINGPERFORMED BY: Alexandre de ParisTimothy [place] 0074670 [facility] [id number] BY: Shake[address] [id number] :39 Range: 0-19 Comments: Negative <20 Weak positive 20 - 39 Moderate positive 40 - 59 Strong positive >59 6-Xdc-930894:39 Systemic Lupus Profile Comments: PATIENT NOT FASTINGPERFORMED BY: Alexandre de ParisTim[place] 0074670 [facility] [id number] BY: Shake[address] [id number] Information: [id number] (97819) Anti-DNA (DS) Ab Qn <1 {IU/mL} (Normal) Range: 0-9 Comments: Negative <5 Equivocal 5 - 9 Positive >9 Sjogren's Anti-SS-B 0.5 {AI} (Normal) Range: 0.0-0.9 Sjogren's Anti-SS-A 0.3 {AI} (Normal) Range: 0.0-0.9 Antichromatin Antibodies <0.2 {AI} (Normal) Range: 0.0-0.9 RA Latex Turbid. 8.5 {IU/mL} (Normal) Range: 0.0-13.9 [place] Antibodies <0.2 {AI} (Normal) Range: 0.0-0.9 HULLER OPERATOR Antibodies <0.2 {AI} (Normal) Range: 0.0-0.9 :27 HgA1C , Office (17834) HgA1C , Office 6.2 % (Normal) Range: 4.6 - 7.1 :27 Blood Glucose , Office (06919) Blood Glucose , Office 108 (Normal) :45 CMP GAP 11 (Normal) Range: 5-15 CO2 26.0 mmol/L (Normal) Range: 21.0-32.0 CL 103 mmol/L (Normal) Range: 98-107 K 4.1 mmol/L (Normal) Range: 3.5-5.1 NA 140 mmol/L (Normal) Range: 136-145 BIT 0.40 mg/dL (Normal) Range: 0.00-1.00 ALT 22 U/L (Normal) Range: 12-78 ALK 96 U/L (Normal) Range: 50-136 AST 9 U/L (Abnormal) Range: 15-37 CA 8.9 mg/dL (Normal) Range: 8.5-10.1 AG 1.0 {RATIO} (Normal) Range: 0.9-2.4 GLOB 3.5 g/dL (Normal) Range: 2.7-4.2 ALB 3.5 g/dL (Normal) Range: 3.4-5.0 TPROT 7.0 g/dL (Normal) Range: 6.4-8.2 BC 22.2 {RATIO} (Abnormal) Range: 10-20 CREAT 0.9 mg/dL (Normal) Range: 0.6-1.0 BUN 20 mg/dL (Abnormal) Range: 7-18 GLU 131 mg/dL (Abnormal) Range: 70-110 Comments: Fasting Glucose result greater than or equal to 126 mg/dL suggests DIABETES MELLITUS per A.D.A. criteria. :45 LIPID VLDL 35 mg/dL (Normal) Range: 5-40 LDL 90 mg/dL (Normal) Range: 0-130 HDL 47 mg/dL (Normal) Comments: Reference Range HDL <40 mg/dL Low HDL Cholesterol HDL >or= 60 mg/dL High HDL Cholesterol TRIG 174 mg/dL (Normal) Comments: Serum Triglycerides Reference Interval Normal <150 mg/dL Borderline high 150 - 199 mg/dL High 200 - 499 mg/dL Very High > or = 500 mg/dL CHOL 172 mg/dL (Normal) Comments: <200 mg/dL Desirable 200-240 mg/dL Borderline >240 mg/dL High Risk :45 MIACRE tMICROCREAT 20.6 {mg/g_CRE} (Normal) MIALB 36.9 mg/L (Normal) CREU 178.4 mg/dL (Normal) :45 TSH 1.99 {uIU/mL} (Normal) Range: 0.358-3.74 :45 VITD 29.4 ng/mL (Abnormal) Range: 30.0-100.0 Comments: Vitamin D deficiency has been defined by the [place] of[place]icine and an Endocrine Society practice guideline as alevel of serum 25-OH vitamin D less than 20 ng/mL (1,2).The Endocrine Society went on to further define vitamin Dinsufficiency as a level between 21 and 29 ng/mL (2).1. IOM ([place] of Medicine). 2010. Dietary reference intakes for calcium and D. [place]: The National Academies Press.2. Rachel MF, Yael NC, Dunia HERRERA, et al. Evaluation, treatment, and prevention of vitamin D deficiency: an Endocrine Society clinical practice guideline. JCEM. 2010; 96(7): 1911-30.Performed at: [address] [id number] Director: Arnold Jefferson PhD, Phone: [phone] 80-Htv-776157:59 Blood Glucose , Office (04286) Blood Glucose , Office 131 (Normal) :58 HgA1C , Office (94672) HgA1C , Office 6.8 % (Normal) Range: 4.6 - 7.1 :12 CBCMD RBCM NORM C+C {NORMAL} (Normal) PE ADEQUATE (Normal) EOS 3 % (Normal) Range: 0-5 MON 2 % (Normal) Range: 0-10 LYMPH 20 % (Normal) Range: 19-41 BAND 2 % (Normal) Range: 0-5 PMN 73 % (Abnormal) Range: 47-70 ANTONIO 100 (Normal) ANC 4.6 3/uL (Normal) Range: 2.0-7.7 PLT 224 K/mm3 (Normal) Range: 150-450 RDW 15.8 % (Abnormal) Range: 11.6-14.6 MCHC 33.2 g/dL (Normal) Range: 32-36 MCH 28.8 pg (Normal) Range: 27.0-32.0 MCV 86.7 fL (Normal) Range: 81-99 HCT 34.4 % (Abnormal) Range: 37-47 HGB 11.4 g.dL (Abnormal) Range: 12.0-15.0 Comments: Please note: Revised HEMOGLOBIN REFERENCE RANGES Reference Range effective 12. RBC 3.97 {M/mm3} (Abnormal) Range: 4.2-5.4 WBC 7.0 K/mm3 (Normal) Range: 4.4-11.0 :12 CMP GAP 10 (Normal) Range: 5-15 CO2 27.0 mmol/L (Normal) Range: 21.0-32.0 CL 102 mmol/L (Normal) Range: 98-107 K 4.4 mmol/L (Normal) Range: 3.5-5.1 NA 139 mmol/L (Normal) Range: 136-145 BIT 0.40 mg/dL (Normal) Range: 0.00-1.00 ALT 28 U/L (Normal) Range: 12-78 ALK 92 U/L (Normal) Range: 50-136 AST 13 U/L (Abnormal) Range: 15-37 CA 9.2 mg/dL (Normal) Range: 8.5-10.1 AG 1.1 {RATIO} (Normal) Range: 0.9-2.4 GLOB 3.3 g/dL (Normal) Range: 2.7-4.2 ALB 3.7 g/dL (Normal) Range: 3.4-5.0 TPROT 7.0 g/dL (Normal) Range: 6.4-8.2 BC 15.0 {RATIO} (Normal) Range: 10-20 CREAT 1.0 mg/dL (Normal) Range: 0.6-1.0 BUN 15 mg/dL (Normal) Range: 7-18 GLU 141 mg/dL (Abnormal) Range: 70-110 Comments: Fasting Glucose result greater than or equal to 126 mg/dL suggests DIABETES MELLITUS per A.D.A. criteria. 35-Yfg-007326:12 LIPID LDL 104 mg/dL (Normal) Range: 0-130 VLDL 43 mg/dL (Abnormal) Range: 5-40 HDL 51 mg/dL (Normal) Comments: Reference Range HDL <40 mg/dL Low HDL Cholesterol HDL >or= 60 mg/dL High HDL Cholesterol TRIG 214 mg/dL (Abnormal) Comments: Serum Triglycerides Reference Interval Normal <150 mg/dL Borderline high 150 - 199 mg/dL High 200 - 499 mg/dL Very High > or = 500 mg/dL CHOL 198 mg/dL (Normal) Comments: <200 mg/dL Desirable 200-240 mg/dL Borderline >240 mg/dL High Risk :12 TSH 2.08 {uIU/mL} (Normal) Range: 0.358-3.74 :12 VITD 34.7 ng/mL (Normal) Range: 30.0-100.0 Comments: Vitamin D deficiency has been defined by the [place] of[place]icine and an Endocrine Society practice guideline as alevel of serum 25-OH vitamin D less than 20 ng/mL (1,2).The Endocrine Society went on to further define vitamin Dinsufficiency as a level between 21 and 29 ng/mL (2).1. IOM ([place] of [employer]). 2010. Dietary reference intakes for calcium and D. [place]: The National Academies Press.2. Rachel MF, Yael MARLEY, Dunia HERRERA, et al. Evaluation, treatment, and prevention of vitamin D deficiency: an Endocrine Society clinical practice guideline. JCEM. 2010; 96(7): 1911-30.Performed at: [address] [id number] Director: Tona Emmanuel MD, Phone: [phone] 62-Htw-797216:15 HgA1C , Office (94746) HgA1C , Office 5.8 % (Normal) Range: 4.6 - 7.1 [id number] Blood Glucose , Office (88602) Blood Glucose , Office 113 (Normal) :30 B12 640 pg/mL (Normal) Range: 254-1320 Comments: There is a low frequency possibility that high titers ofintrinsic blocking antibodies may not be completely inactivated during the reaction pretreatment stepof this testing method. If test results are i n conflictwith the clinical diagnosis, patient should be testedfor the presence of intrinsic factor blocking antibodies. :30 CBCMD HYPO 1+ (Normal) RBCM N CYTIC {NORMAL} (Normal) PE ADEQUATE (Normal) EOS 4 % (Normal) Range: 0-5 MON 8 % (Normal) Range: 0-10 LYMPH 27 % (Normal) Range: 19-41 PMN 61 % (Normal) Range: 47-70 ANTONIO 100 (Normal) ANC 4.8 3/uL (Normal) Range: 2.0-7.7 PLT 209 K/mm3 (Normal) Range: 150-450 RDW 15.0 % (Abnormal) Range: 11.6-14.6 MCHC 34.0 g/dL (Normal) Range: 32-36 MCH 29.6 pg (Normal) Range: 27.0-32.0 MCV 87.2 fL (Normal) Range: 81-99 HCT 33.8 % (Abnormal) Range: 37-47 HGB 11.5 g/dL (Abnormal) Range: 12.0-16.0 RBC 3.87 {M/mm3} (Abnormal) Range: 4.2-5.4 WBC 7.1 K/mm3 (Normal) Range: 4.4-11.0 :30 CMP GAP 10 (Normal) Range: 5-15 CO2 28.0 mmol/L (Normal) Range: 21.0-32.0 CL 106 mmol/L (Normal) Range: 98-107 K 4.3 mmol/L (Normal) Range: 3.5-5.1 NA 144 mmol/L (Normal) Range: 136-145 BIT 0.50 mg/dL (Normal) Range: 0.00-1.00 ALT 24 U/L (Normal) Range: 12-78 ALK 94 U/L (Normal) Range: 50-136 AST 12 U/L (Abnormal) Range: 15-37 CA 8.7 mg/dL (Normal) Range: 8.5-10.1 AG 1.1 {RATIO} (Normal) Range: 0.9-2.4 GLOB 3.4 g/dL (Normal) Range: 2.7-4.2 ALB 3.6 g/dL (Normal) Range: 3.4-5.0 TPROT 7.0 g/dL (Normal) Range: 6.4-8.2 BC 15.0 {RATIO} (Normal) Range: 10-20 GFRAA 91 mL/min (Normal) GFR 75 mL/min (Normal) CREAT 0.8 mg/dL (Normal) Range: 0.6-1.0 BUN 12 mg/dL (Normal) Range: 7-18 GLU 138 mg/dL (Abnormal) Range: 70-110 Comments: Fasting Glucose result greater than or equal to 126 mg/dL suggests DIABETES MELLITUS per A.D.A. criteria. :30 LIPID VLDL 24 mg/dL (Normal) Range: 5-40 LDL 96 mg/dL (Normal) Range: 0-130 HDL 56 mg/dL (Normal) Comments: Reference Range HDL <40 mg/dL Low HDL Cholesterol HDL >or= 60 mg/dL High HDL Cholesterol CHOL 176 mg/dL (Normal) Comments: <200 mg/dL Desirable 200-240 mg/dL Borderline >240 mg/dL High Risk TRIG 120 mg/dL (Normal) Comments: Serum Triglycerides Reference Interval Normal <150 mg/dL Borderline high 150 - 199 mg/dL High 200 - 499 mg/dL Very High > or = 500 mg/dL :30 MIACRE Comments: appt 12/07/11 tMICROCREAT 39.1 {mg/g_CRE} (Abnormal) MIALB 70.7 mg/L (Normal) CREU 180.8 mg/dL (Normal) :30 TSH 1.08 {uIU/mL} (Normal) Range: 0.358-3.74 :30 VITD 35.3 ng/mL (Normal) Range: 30.0-100.0 Comments: Vitamin D deficiency has been defined by the [place] of[place] and an Endocrine Society practice guideline as alevel of serum 25-OH vitamin D less than 20 ng/mL (1,2).The Endocrine Society went on to further define vitamin Dinsufficiency as a level between 21 and 29 ng/mL (2).1. IOM ([place] of [employer]). 2010. Dietary reference intakes for calcium and D. [place]: The National Academies Press.2. Rachel MF, Yael NC, Dunia HERRERA, et al. Evaluation, treatment, and prevention of vitamin D deficiency: an Endocrine Society clinical practice guideline. JCEM. 2010; 96(7): 1911-30.Performed at: [address] [id number] Director: Tona Emmanuel MD, Phone: [phone] [id number] CTA NECK W/WO CONTRAST Radiology Report See Note (Normal) Comments: PROCEDURES: CTA NECK WITH CONTRAST REASON FOR EXAM: Female, 71 years old. Carotid stenosis seen onDopplerexamination. TECHNIQUE: CT angiography with multi-detector data acquisition wasperformed f rom the aortic arch to the skull base following intravenousadministration of 100 ml of Isovue 370 contrast. MIP images werereconstructed from the axial data set. Post-processing of theangiographicimag es was performed, with multiplanar reformation and 3D reconstruction. COMPARISON: None. FINDINGS: AORTIC ARCH:There is atherosclerotic calcific plaque formation of the aortic arch andgreat vessels elias sing from the aortic arch, without a hemodynamicallysignificant stenosis. There is a normal origin of the brachiocephalic,leftcommon carotid, and left subclavian arteries. Normal brachiocephalicartery. Normal origin of the right common carotid artery. Normal leftsubclavian artery, without a hemodynamically significant stenosis. RIGHT CAROTID ARTERIES:Normal right common carotid artery (CCA). Rafaela l right common carotidbulb. Normal origin of the right internal carotid (ICA) artery without ahemodynamically significant stenosis. Normal visualized cervical portionof the right internal carotid arter y. Normal origin of the right external carotid artery (ECA). LEFT CAROTID ARTERIES:Normal left common carotid artery (CCA). Normal left common carotidbulb. Normal origin of the left internal carotid (I CA) artery without ahemodynamically significant stenosis. Normal visualized cervical portionof the left internal carotid artery. Normal origin of the left external carotid artery (ECA). VERTEBRAL ARTER IES:Normal antegrade flow within the bilateral vertebral artery without ahemodynamically significant stenosis. IMPRESSION:Normal bilateral cervical carotid and vertebral arteries. To consult with a radi ologist regarding this report, please call our [id number] line @ Dictated on 10/08/11 [address]ER,Loraribed on 10/09/11 0856 by ITS IMPORTSign by Juana Wayne MD on 10/09/11 0857 Sign by: Teo Wayne MD [id number]:00 BILAT SCRN DIGITAL & CAD Radiology Report See Note (Normal) Comments: MAMMOGRAPHY - BILATERAL SCREENING REASON FOR EXAM: Female, 71 years old. Routine annual screeningexamination. PERTINENT HISTORY: Non-contributory. TECHNIQUE: Digital examination. Med iolateral ob lique (MLO) andcraniocaudad (CC) views of both breasts were obtained. CAD: CAD wasperformed on this study. COMPARISON: Comparison is made with prior study dated August 17, 2010. FINDINGS:The breast c omposition is heterogeneously dense. There are no dominant masses or suspicious calcifications. No other significant abnormalities are identified. There has been nosignificant change since the prior . IMPRESSION:Stable bilateral screening mammogram. Yearly follow-up recommended. (A) ASSESSMENT CATEGORY: Approximately 10% of breast cancers are not detected by mammography. Anormal mammogram sh ould not delay biopsy of a clinically suspiciousabnormality. To consult with a radiologist regarding this report, please call our [id number] line @ Dictated on 09/18/11 1040 by Ori clifton MD,Deweybed on 09/20/11 0901 by ITS IMPORTSign by Teo Wayne MD on 09/20/11 0902 Sign by: Hema STREETER,Teo [id number] DEXA BONE DENSITY STUDY (HP) Radiology Report See Note (Normal) Comments: PROCEDURE: DUAL ENERGY X-RAY ABSORPTIOMETRY / DEXA. REASON FOR EXAM: Female, 71 years old. Osteopenia. TECHNIQUE: Bone Mineral Density (BMD) measurements of lumbar spine andbilateral hips were obt ained. COMPARISON: Comparison is made with prior study dated May. FINDINGS: Lumbar Spine (L1-L4): g/cm2 (1.080) / T-score (-0.7) / Z-score (0.9)Left Femur Total: g/cm2 (0.924) / T -score (-0.8) / Z-score (0.9)Right Femur Total: g/cm2 (0.814) / T-score (-1.6) / Z-score (0.1) Since prior study, there has been a bone loss of 5.2% in the right femur. IMPRESSION:The patient is considered osteopenic, as outlined above, according toWorldHealth Organization (WHO) criteria. Fracture risk is moderate. Reference Information:The T-score is the number of standard deviations above or below thestandard which is normal for young adults at their peak bone mineraldensity. The World Health Organization (WHO) interprets the T-scores asfollows: Above - 1 Normal bone densityBetwee n -1 and -2.5 OsteopeniaEqual to / or below -2.5 Osteoporosis As a practical clinical guideline, osteopenia may be graded as follows:Mild -1 through - 1.5Moderate -1.6 through -2.0Severe -2.1 thro ugh -2.4 The Z-score is the number of standard deviations above or below age- matchedcontrols. A Z-score of less than -1.5 would be considered abnormal. References:1. NIH Osteoporosis and Related Bone D iseases http://www.osteo.org2. International Society for Clinical Densitometry http://www.iscd.org3. National Osteoporosis Foundation http://www.nof.org To consult with a radiologist regarding this re port, please call our [id number] line @ Dictated on 09/18/11 [address]ER,Davidranscribed on 09/19/11 1416 by ITS IMPORTSign by Teo Wayne MD on 09/19/11 141 Sign by: Teo Wayne MD [id number] HgA1C , Office (09646) HgA1C , Office 5.9 % (Normal) Range: 4.6 - 7.1 [id number]:17 Blood Glucose , Office (54474) Blood Glucose , Office 77 (Normal) :44 CBCD,SMEAR DIFF RED CELL MORPH SeeNote {NORMAL} (Normal) Comments: Result: NORM C+C PLT EST SeeNote (Normal) Comments: Result: ADEQUATE BASOPHIL 2 % (Abnormal) Range: 0-1 MONOCYTE 1 % (Normal) Range: 0-10 LYMPH 21 % (Normal) Range: 19-41 BAND 3 % (Normal) Range: 0-5 SEGS 73 % (Abnormal) Range: 47-70 CELLS COUNTED 100 (Normal) ABSOLUTE NEUT 5.6 3/uL (Normal) Range: 2.0-7.7 PLT 230 K/mm3 (Normal) Range: 150-450 RDW 15.7 % (Abnormal) Range: 11.6-14.6 MCHC 34.1 g/dL (Normal) Range: 32-36 MCH 29.6 pg (Normal) Range: 27.0-32.0 MCV 86.8 fL (Normal) Range: 81-99 HCT 34.4 % (Abnormal) Range: 37-47 HGB 11.7 g/dL (Abnormal) Range: 12.0-16.0 RBC 3.97 {M/mm3} (Abnormal) Range: 4.2-5.4 WBC 7.7 K/mm3 (Normal) Range: 4.4-11.0 :44 COMP METABOLIC GAP 7 (Normal) Range: 5-15 CO2 29.0 mmol/L (Normal) Range: 21.0-32.0 CL 106 mmol/L (Normal) Range: 98-107 K 4.2 mmol/L (Normal) Range: 3.5-5.1 NA 142 mmol/L (Normal) Range: 136-145 T BILI 0.50 mg/dL (Normal) Range: 0.00-1.00 ALT 39 U/L (Normal) Range: 12-78 ALK P 86 U/L (Normal) Range: 50-136 AST 17 U/L (Normal) Range: 15-37 CA 8.7 mg/dL (Normal) Range: 8.5-10.1 A/G 1.1 {RATIO} (Normal) Range: 0.9-2.4 GLOB 3.4 g/dL (Normal) Range: 2.7-4.2 ALB 3.6 g/dL (Normal) Range: 3.4-5.0 T PROT 7.0 g/dL (Normal) Range: 6.4-8.2 BUN/CRE 21.3 {RATIO} (Abnormal) Range: 10-20 EST GFR - AA 91 mL/min (Normal) EST GFR 75 mL/min (Normal) CREAT,SERUM 0.8 mg/dL (Normal) Range: 0.6-1.0 BUN 17 mg/dL (Normal) Range: 7-18 GLU 112 mg/dL (Abnormal) Range: 70-110 Comments: Fasting Glucose result from 110 to <126 mg/dL suggests IMPAIRED HOMEOSTASIS per A.D.A. criteria. :44 LIPID VLDL 16 mg/dL (Normal) Range: 5-40 LDL 96 mg/dL (Normal) Range: 0-130 HDL 73 mg/dL (Normal) Comments: Reference Range HDL <40 mg/dL Low HDL Cholesterol HDL >or= 60 mg/dL High HDL Cholesterol TRIG 82 mg/dL (Normal) Comments: Serum Triglycerides Reference Interval Normal <150 mg/dL Borderline high 150 - 199 mg/dL High 200 - 499 mg/dL Very High > or = 500 mg/dL CHOL 185 mg/dL (Normal) Comments: <200 mg/dL Desirable 200-240 mg/dL Borderline >240 mg/dL High Risk :44 VIT D,25 58743 22.3 ng/mL (Abnormal) Range: 30.0-100.0 Comments: Vitamin D deficiency has been defined by the [place] [employer] and an Endocrine Society practice guideline as alevel of serum 25-OH vitamin D less than 20 ng/mL (1,2).The Endocrine Society went on to further define vitamin Dinsufficiency as a level between 21 and 29 ng/mL (2).1. IOM ([place]). 2011. Dietary reference intakes for calcium and D. [place]: The National Academies Press.2. Rachel MF, Yael MARLEY, Dunia HERRERA, et al. Evaluation, treatment, and prevention of vitamin D deficiency: an Endocrine Society clinical practice guideline. JCEM. 2010; 96(7): 1911-30.Performed at: - [facility] [address] [id number] Director: Tona Emmanuel MD, Phone: [phone] HgA1C , Office (21991) HgA1C , Office 6.6 % (Normal) Range: 4.6 - 7.1 :34 Blood Glucose , Office (74243) Blood Glucose , Office 116 (Normal) :50 CBCD,SMEAR DIFF RED CELL MORPH SeeNote {NORMAL} (Normal) Comments: Result: NORM C+C PLT EST SeeNote (Normal) Comments: Result: ADEQUATE EOS 1 % (Normal) Range: 0-5 MONOCYTE 8 % (Normal) Range: 0-10 LYMPH 14 % (Abnormal) Range: 19-41 BAND 3 % (Normal) Range: 0-5 SEGS 74 % (Abnormal) Range: 47-70 CELLS COUNTED 100 (Normal) ABSOLUTE NEUT 6.9 3/uL (Normal) Range: 2.0-7.7 PLT 293 K/mm3 (Normal) Range: 150-450 RDW 14.6 % (Normal) Range: 11.6-14.6 MCHC 33.8 g/dL (Normal) Range: 32-36 MCH 28.7 pg (Normal) Range: 27.0-32.0 MCV 85.1 fL (Normal) Range: 81-99 HCT 37.4 % (Normal) Range: 37-47 HGB 12.6 g/dL (Normal) Range: 12.0-16.0 RBC 4.39 {M/mm3} (Normal) Range: 4.2-5.4 WBC 9.3 K/mm3 (Normal) Range: 4.4-11.0 :50 COMP METABOLIC Comments: appt [id number] GAP 10 (Normal) Range: 5-15 CO2 26.0 mmol/L (Normal) Range: 21.0-32.0 CL 103 mmol/L (Normal) Range: 98-107 K 4.8 mmol/L (Normal) Range: 3.5-5.1 NA 139 mmol/L (Normal) Range: 136-145 T BILI 0.40 mg/dL (Normal) Range: 0.00-1.00 ALT 34 U/L (Normal) Range: 12-78 ALK P 102 U/L (Normal) Range: 50-136 AST 15 U/L (Normal) Range: 15-37 CA 9.7 mg/dL (Normal) Range: 8.5-10.1 A/G 1.0 {RATIO} (Normal) Range: 0.9-2.4 GLOB 4.1 g/dL (Normal) Range: 2.7-4.2 ALB 3.9 g/dL (Normal) Range: 3.4-5.0 T PROT 8.0 g/dL (Normal) Range: 6.4-8.2 BUN/CRE 28.0 {RATIO} (Abnormal) Range: 10-20 EST GFR - AA 70 mL/min (Normal) EST GFR 58 mL/min (Abnormal) CREAT,SERUM 1.0 mg/dL (Normal) Range: 0.6-1.0 BUN 28 mg/dL (Abnormal) Range: 7-18 GLU 131 mg/dL (Abnormal) Range: 70-110 Comments: Fasting Glucose result greater than or equal to 126 mg/dL suggests DIABETES MELLITUS per A.D.A. criteria. :50 LIPID VLDL 31 mg/dL (Normal) Range: 5-40 LDL 160 mg/dL (Abnormal) Range: 0-130 HDL 43 mg/dL (Normal) Comments: Reference Range HDL <40 mg/dL Low HDL Cholesterol HDL >or= 60 mg/dL High HDL Cholesterol TRIG 156 mg/dL (Normal) Comments: Serum Triglycerides Reference Interval Normal <150 mg/dL Borderline high 150 - 199 mg/dL High 200 - 499 mg/dL Very High > or = 500 mg/dL CHOL 234 mg/dL (Abnormal) Comments: <200 mg/dL Desirable 200-240 mg/dL Borderline >240 mg/dL High Risk :50 TSH 1.56 {uIU/mL} (Normal) Range: 0.358-3.74 :50 VIT D,25 45907 41.3 ng/mL (Normal) Range: 32.0-100.0 Comments: Effective June 18, 2011 Vitamin D, 25-Hydroxy reference intervals will be changing to 30-100. .Recent studies consider the lower li lalo of 32.0 ng/mL to be athreshold for optimal health.Pepito ANNE. J Nutr. 2004;135(2):317-22.Performed at: [facility] [address] [id number] Director: Tona Emmanuel MD, Phone: [phone] VITAMIN B12 806 pg/mL (Normal) Range: 254-1320 Comments: There is a low frequency possibility that high titers ofintrinsic blocking antibodies may not be completely inactivated during the reaction pretreatment stepof this testing method. If test results are i n conflictwith the clinical diagnosis, patient should be testedfor the presence of intrinsic factor blocking antibodies. [id number] Comp. Metabolic Panel (14) Comments: PATIENT WAS FASTINGPERFORMED BY: [email or web address] [id number] ALT (SGPT) 40 [iU]/L (Normal) Range: 0-40 AST (SGOT) 31 [iU]/L (Normal) Range: 0-40 Alkaline Phosphatase, S 104 [iU]/L (Normal) Range: 25-165 Bilirubin, Total 0.4 mg/dL (Normal) Range: 0.0-1.2 A/G Ratio 1.8 (Normal) Range: 1.1-2.5 Globulin, Total 2.4 g/dL (Normal) Range: 1.5-4.5 Albumin, Serum 4.2 g/dL (Normal) Range: 3.5-4.8 Protein, Total, Serum 6.6 g/dL (Normal) Range: 6.0-8.5 Calcium, Serum 9.0 mg/dL (Normal) Range: 8.6-10.2 Carbon Dioxide, Total 24 mmol/L (Normal) Range: 20-32 Chloride, Serum 104 mmol/L (Normal) Range: 97-108 Potassium, Serum 4.3 mmol/L (Normal) Range: 3.5-5.2 Sodium, Serum 141 mmol/L (Normal) Range: 135-145 BUN/Creatinine Ratio 15 (Normal) Range: 11-26 eGFR If Africn Am 96 mL/min/1.73 (Normal) Comments: Note: A persistent eGFR <60 mL/min/1.73 m2 (3 months or more) mayindicate chronic kidney disease. An eGFR >59 mL/min/1.73 m2 with anelevated urine protein also may indicate chronic kidney disease.Calculated using CKD-EPI formula. eGFR If NonAfricn Am 84 mL/min/1.73 (Normal) Creatinine, Serum 0.73 mg/dL (Normal) Range: 0.57-1.00 BUN 11 mg/dL (Normal) Range: 8-27 Glucose, Serum 136 mg/dL (Abnormal) Range: 65-99 :09 Lipid Panel With LDL/HDL Comments: PATIENT WAS FASTINGPERFORMED BY: [facility] [id number] Ratio LDL Cholesterol Calc 74 mg/dL (Normal) Range: 0-99 LDL/HDL Ratio 1.5 {ratio_units} Range: 0.0-3.2 (Normal) VLDL Cholesterol Priscilla 25 mg/dL (Normal) Range: 5-40 HDL Cholesterol 49 mg/dL (Normal) Comments: According to ATP-III Guidelines, HDL-C >59 mg/dL is considered anegative risk factor for CHD. Triglycerides 125 mg/dL (Normal) Range: 0-149 Cholesterol, Total 148 mg/dL (Normal) Range: 100-199 : TSH 0.192 {uIU/mL} Comments: PATIENT WAS FASTINGPERFORMED BY: [facility] [id number] 09 (Abnormal) Range: 0.450-4.500 : Vitamin B12 417 pg/mL (Normal) Comments: PATIENT WAS FASTINGPERFORMED BY: [facility] [id number] 09 Range: 211-946 [id number] UNILAT LT DIAG DIGITAL & CAD Radiology Report See Note (Normal) Comments: MAMMOGRAPHY - UNILATERAL DIAGNOSTIC: LEFT BREAST REASON FOR EXAM: Female, 71 years old. This is a 6 month follow-upexamination. PERTINENT HISTORY: Non-contributory. TECHNIQUE: Digita l examinatio n. Mediolateral oblique (MLO) andcraniocaudad (CC) views of the breast were obtained. CAD: CAD wasperformedon this study. COMPARISON: Comparison is made with prior examination dated July. FINDINGS:The breast composition is heterogeneously dense. There are no masses or suspicious microcalcifications. No other significant abnormalities are identified. There has been nosignificant change s jeaneth the prior study. IMPRESSION:Normal unilateral diagnostic mammogram. One year follow-up recommended.(A) ASSESSMENT CATEGORY:BIRADS Category 2: Benign finding(s). A letter regarding these resultsw ill be sent to the patient by the facility within 30 days. Approximately 10% of breast cancers are not detected by mammography. Anormal mammogram should not delay biopsy of a clinically suspiciousabnor mality. Dictated on 02/22/11 0945 by David Wayne MDranscribed on 02/23/11 1510 by ITS IMPORTSign by Teo Wayne MD on 02/23/11 151 Sign by: Teo Wayne MD [id number] CBCD,SMEAR DIFF Comments: appt 10/24/10 RED CELL MORPH SeeNote {NORMAL} (Normal) Comments: Result: NORM C+C PLT EST SeeNote (Normal) Comments: Result: ADEQUATE EOS 2 % (Normal) Range: 0-5 LYMPH 40 % (Normal) Range: 19-41 CELLS COUNTED 100 (Normal) SEGS 58 % (Normal) Range: 47-70 ABSOLUTE NEUT 4.5 3/uL (Normal) Range: 2.0-7.7 PLT 246 K/mm3 (Normal) Range: 150-450 MCHC 34.4 g/dL (Normal) Range: 32-36 RDW 15.3 % (Abnormal) Range: 11.6-14.6 MCH 29.4 pg (Normal) Range: 27.0-32.0 MCV 85.4 fL (Normal) Range: 81-99 HCT 36.3 % (Abnormal) Range: 37-47 HGB 12.5 g/dL (Normal) Range: 12.0-16.0 RBC 4.26 {M/mm3} (Normal) Range: 4.2-5.4 WBC 7.2 K/mm3 (Normal) Range: 4.4-11.0 :58 COMP METABOLIC Comments: appt 10/24/10 GAP 12 (Normal) Range: 5-15 CL 104 mmol/L (Normal) Range: 98-107 CO2 25.0 mmol/L (Normal) Range: 21.0-32.0 K 4.4 mmol/L (Normal) Range: 3.5-5.1 NA 141 mmol/L (Normal) Range: 136-145 ALT 85 U/L (Abnormal) Range: 12-78 T BILI 0.50 mg/dL (Normal) Range: 0.00-1.00 ALK P 101 U/L (Normal) Range: 50-136 AST 17 U/L (Normal) Range: 15-37 CA 9.2 mg/dL (Normal) Range: 8.5-10.1 A/G 1.1 {RATIO} (Normal) Range: 0.9-2.4 GLOB 3.3 g/dL (Normal) Range: 2.7-4.2 ALB 3.7 g/dL (Normal) Range: 3.4-5.0 BUN/CRE 18.8 {RATIO} (Normal) Range: 10-20 T PROT 7.0 g/dL (Normal) Range: 6.4-8.2 BUN 15 mg/dL (Normal) Range: 7-18 CREAT,SERUM 0.8 mg/dL (Normal) Range: 0.6-1.0 EST GFR 76 mL/min (Normal) EST GFR - AA 92 mL/min (Normal) GLU 132 mg/dL (Abnormal) Range: 70-110 Comments: Fasting Glucose result greater than or equal to 126 mg/dL suggests DIABETES MELLITUS per A.D.A. criteria. :58 LIPID HDL 61 mg/dL (Normal) Comments: Reference Range HDL <40 mg/dL Low HDL Cholesterol HDL >or= 60 mg/dL High HDL Cholesterol LDL 99 mg/dL (Normal) Range: 0-130 VLDL 31 mg/dL (Normal) Range: 5-40 CHOL 191 mg/dL (Normal) Comments: <200 mg/dL Desirable 200-240 mg/dL Borderline >240 mg/dL High Risk TRIG 156 mg/dL (Normal) Comments: Serum Triglycerides Reference Interval Normal <150 mg/dL Borderline high 150 - 199 mg/dL High 200 - 499 mg/dL Very High > or = 500 mg/dL :58 TSH 4.83 {uIU/mL} (Abnormal) Range: 0.358-3.74 :58 VIT D,25 97846 22.0 ng/mL (Abnormal) Comments: appt 10/24/10 Range: 32.0-100.0 Comments: Recent studies consider the lower limit of 32.0 ng/mL to tammy threshold for optimal health.Pepito ANNE. J Nutr. 2004;135(2):317-22.Performed at: [facility] [place] [id number] Director: Tona Emmanuel MD, Phone: [phone] VITAMIN B12 285 pg/mL (Normal) Range: 254-1320 Comments: There is a low frequency possibility that high titers ofintrinsic blocking antibodies may not be completely inactivated during the reaction pretreatment stepof this testing method. If test results are i n conflictwith the clinical diagnosis, patient should be testedfor the presence of intrinsic factor blocking antibodies. :42 Thin prep Pap Comments: Source.............Cervical;EndocervicalNo. of containers..01 CYTYC Thin Prep VialPATIENT NOT FASTINGPERFORMED BY: [facility] [address] [id number] Information: [id number] ([id number]) Note: PAPSMR (Normal) Comments: The Pap smear is a screening test designed to aid in the detection ofpremalignant and malignant conditions of the uterine cervix. It is not adiagnostic procedure and should not be used as the sole mean s of detectingcervical cancer. Both false-positive and false-negative reports do occur. .The HPV DNA reflex criteria were not met with this specimen resulttherefore, no HPV testing was performed. . See Note . (Normal) DIAGNOSIS: SPRCS (Normal) Comments: NEGATIVE FOR INTRAEPITHELIAL LESION AND MALIGNANCY.CELLULAR CHANGES ASSOCIATED WITH ATROPHY ARE PRESENT.Satisfactory for evaluation. Endocervical component may not bedistinguished in cases of atrophy.V 76.2 ; Screening for malignant neoplasm of the cervixConner Montes, Hospital Administrator (ASCP) [id number]:26 BREAST UNILATERAL Radiology Report See Note (Normal) Comments: CLINICAL:Female, 70 years old. Densities on mammogram EXAMINATION:Targeted left breast ultrasound TECHNIQUE:High-resolution linear images of the upper two thirds of the left breastwere obtained. COMPARI SON:None. FINDINGS:No solid or cystic mass is identified. IMPRESSION:No ultrasound abnormalities identified. Dictated on 08/24/10 1125 by ANTHONY PALOMARESTranscribed on 08/28/10 1452 by ITS IMPORTSign by ANTHONY PALOMARES on 08/28/10 1453 Sign by: ANTHONY PALOMARES [id number]:58 UNILAT LT DIAG DIGITAL & CAD Radiology Report See Note (Normal) Comments: MAMMOGRAPHY - UNILATERAL DIAGNOSTIC: LEFT BREAST INDICATION:Female, 70 years old. Abnormal screening study. PERTINENT HISTORY:Non-contributory TECHNIQUE:Digital examination.True lateral and mediola teral oblique spot views ofthe breast were obtained. CAD was performed on this study. COMPARISON:June 18, 2009, June 28, 2009, August 17, 2010. FINDINGS:The breast composition is heterogeneousl y dense.There are scattered asymmetric densities throughout the breast. Therearetwo apparent focal densities in the upper half of the left breast. Thechange in appearance on the additional views. The y are questionably seenon the spot films of June 28, 2009. There is no ultrasoundabnormalityidentified in the upper two thirds of the breast. These densitiestherefore most likely represent superimp osition of normal parenchyma.There are no suspicious microcalcifications.No other significant abnormalities are identified. IMPRESSION: There are two densities noted in the upper half of the leftbreast. These densities most likely represent superimposition of normalparenchymal structures. If there is no suspicious palpable abnormality,follow-up left mammogram in 6 months is recommended. ASSESSMENT C ATEGORY:BIRADS Category 3: Probably Benign Finding - Initial Qrsyf-[id number]-mm Suggested. A letter regarding these results will be sent tothepatient by the facility within 30 days. Approximately 10% of breast cancers are not detected by mammography. Anormal mammogram should not delay biopsy of a clinically suspiciousabnormality. Dictated on 08/24/10 1206 by ANTHONY PALOMARESTranscribed on 08/24/10 135 by ITS IMPORTSign by ANTHONY PALOMARES on 08/24/10 135 Sign by: ANTHONY PALOMARES [id number]:43 BILAT SCRN DIGITAL & CAD Radiology Report See Note (Normal) Comments: MAMMOGRAPHY - BILATERAL SCREENING INDICATION:Female, 70 years old. Routine annual screening examination. PERTINENT HISTORY:Non-contributory. TECHNIQUE:Digital examination. Mediolateral oblique (MLO) a nd craniocaudad (CC)views of both breasts were obtained. CAD was performed on this study. COMPARISON:March 12 2006, June 21 2009, June 28, 2009. FINDINGS:The breast composition is heterogeneous ly dense.There is an asymmetric density in the upper left breast not seen onprevious examinations. For further evaluation, left true lateral andleftmediolateral oblique spot compression views are recom mended. No othernewdensities are seen.There are no suspicious microcalcifications.No other significant abnormalities are identified. IMPRESSION:Apparent new density upper left. Additional views are re commended. ASSESSMENT CATEGORY:BI-RADS Category 0: Need Additional Imaging Evaluation. A letterregarding these results will be sent to the patient by the facility. Approximately 10% of breast cancers are not detected by mammography. Anormal mammogram should not delay biopsy of a clinically suspiciousabnormality. Dictated on 08/17/10 0950 by ANTHONY PALOMARES MDTranscribed on 08/18/10 145 by [facility] IM PORTSign by ANTHONY PALOMARES MD on 08/18/101451 Sign by: ANTHONY PALOMARES MD 2-Jlt-176625:14 HgA1C , Office (69718) HgA1C , Office 6.5 % (Normal) Range: 4.6 - 7.1 2-Djj-812350:14 Blood Glucose , Office (69708) Blood Glucose , Office 176 (Normal) :30 CBCD,SMEAR DIFF PLT EST SeeNote (Normal) Comments: Result: ADEQUATE RED CELL MORPH SeeNote {NORMAL} (Normal) Comments: Result: NORM C+C EOS 3 % (Normal) Range: 0-5 MONOCYTE 6 % (Normal) Range: 0-10 LYMPH 25 % (Normal) Range: 19-41 BAND 1 % (Normal) Range: 0-5 CELLS COUNTED 100 (Normal) SEGS 65 % (Normal) Range: 47-70 ABSOLUTE NEUT 5.8 3/uL (Normal) Range: 2.0-7.7 PLT 248 K/mm3 (Normal) Range: 150-450 RDW 15.0 % (Abnormal) Range: 11.6-14.6 MCH 29.4 pg (Normal) Range: 27.0-32.0 MCHC 34.3 g/dL (Normal) Range: 32-36 MCV 85.9 fL (Normal) Range: 81-99 HCT 34.7 % (Abnormal) Range: 37-47 HGB 11.9 g/dL (Abnormal) Range: 12.0-16.0 RBC 4.03 {M/mm3} (Abnormal) Range: 4.2-5.4 WBC 9.1 K/mm3 (Normal) Range: 4.4-11.0 :30 COMP METABOLIC GAP 12 (Normal) Range: 5-15 CL 105 mmol/L (Normal) Range: 98-107 CO2 26.0 mmol/L (Normal) Range: 21.0-32.0 K 4.3 mmol/L (Normal) Range: 3.5-5.1 NA 143 mmol/L (Normal) Range: 136-145 T BILI 0.30 mg/dL (Normal) Range: 0.00-1.00 ALT 34 U/L (Normal) Range: 12-78 ALK P 89 U/L (Normal) Range: 50-136 AST 11 U/L (Abnormal) Range: 15-37 CA 9.0 mg/dL (Normal) Range: 8.5-10.1 A/G 1.1 {RATIO} (Normal) Range: 0.9-2.4 GLOB 3.1 g/dL (Normal) Range: 2.7-4.2 ALB 3.5 g/dL (Normal) Range: 3.4-5.0 BUN/CRE 24.3 {RATIO} (Abnormal) Range: 10-20 T PROT 6.6 g/dL (Normal) Range: 6.4-8.2 CREAT,SERUM 0.7 mg/dL (Normal) Range: 0.6-1.0 EST GFR 88 mL/min (Normal) EST GFR - AA 107 mL/min (Normal) BUN 17 mg/dL (Normal) Range: 7-18 GLU 127 mg/dL (Abnormal) Range: 70-110 Comments: Fasting Glucose result greater than or equal to 126 mg/dL suggests DIABETES MELLITUS per A.D.A. criteria. :30 LIPID HDL 48 mg/dL (Normal) Comments: Reference Range HDL <40 mg/dL Low HDL Cholesterol HDL >or= 60 mg/dL High HDL Cholesterol LDL 70 mg/dL (Normal) Range: 0-130 TRIG 214 mg/dL (Abnormal) Comments: Serum Triglycerides Reference Interval Normal <150 mg/dL Borderline high 150 - 199 mg/dL High 200 - 499 mg/dL Very High > or = 500 mg/dL VLDL 43 mg/dL (Abnormal) Range: 5-40 CHOL 161 mg/dL (Normal) Comments: <200 mg/dL Desirable 200-240 mg/dL Borderline >240 mg/dL High Risk :30 MICROALB:CRE UR MALB:CREAT 39.0 {mg/g_CRE} (Abnormal) MICROALBUMIN,UR 63.0 mg/L (Normal) UR CREAT 161.2 mg/dL (Normal) : VIT D,25 84840 27.7 ng/mL Range: 32.0-100.0 30 (Abnormal) Comments: Recent studies consider the lower limit of 32.0 ng/mL to tammy threshold for optimal health.Pepito ANNE. J Nutr. 2004;135(2):317- 22.Performed at: - [facility] [address]Lab Director: Tona Emmanuel MD, Phone: [phone] : VITAMIN B12 449 pg/mL (Normal) Range: 254-1320 30 Comments: There is a low frequency possibility that high titers ofintrinsic blocking antibodies may not be completely inactivated during the reaction pretreatment stepof this testing method. If test results are i n conflictwith the clinical diagnosis, patient should be testedfor the presence of intrinsic factor blocking antibodies. CCP Antibodies IgG/IgA 1 {units} (Normal) Comments: PATIENT NOT FASTINGPERFORMED BY: [facility] [id number] BY: [address] [id number] 0:44 Range: 0-19 Comments: Negative <20 Weak positive 20 - 39 Moderate positive 40 - 59 Strong positive >59 Comment: SPRCS (Normal) Comments: PATIENT NOT FASTINGPERFORMED BY: [facility] [id number] BY: [address] [id number] 0:44 Comments: Effective April 25, 2009 order code 401370 CCP IgGAntibodies has been replaced due to an updated reagentversion 3.1. For this reason [facility] has provided youwith a new order code [id number] CCP Antibodies IgG/IgA. 74-Jqc-272548:44 Vitamin D Hydroxy Comments: PATIENT NOT FASTINGPERFORMED BY: [facility] Yobajh1467 [facility] [id number] BY: [address] [id number] ([id number]) Vitamin D, 25-Hydroxy 30.9 ng/mL (Abnormal) Range: 32.0-100.0 Comments: Recent studies consider the lower limit of 32.0 ng/mL to be athreshold for optimal health.Pepito ANNE. J Nutr. 2004;135(2):317-22. 18-Pii-811496:44 SED RATE ERYTHROCYTE Comments: PATIENT NOT FASTINGPERFORMED BY: [facility]tv[place] [id number] [facility] [id number] BY: [address] [id number] (12579) Sedimentation Rate-Westergren 4 mm/h (Normal) Range: 0-30 61-Ksg-041939:44 C-REACTIVE PROTEIN Comments: PATIENT NOT FASTINGPERFORMED BY: [place] [id number] [facility] [id number] BY: [address] [id number] (50042) C-Reactive Protein, Quant 2.5 mg/L (Normal) Range: 0.0-4.9 19-Svj-124191:44 TSH (41188) Comments: PATIENT NOT FASTINGPERFORMED BY: [address] [id number] BY: [address] [id number] TSH 2.050 {uIU/mL} (Normal) Range: 0.450-4.500 41-Vlf-900850:44 RHEUMATOID FACTOR-QUANT Comments: PATIENT NOT FASTINGPERFORMED BY: [place] 1480670 [facility] [id number] BY: [address] [id number] (81622) RA Latex Turbid. 8.4 {IU/mL} (Normal) Range: 0.0-13.9 09-Cgs-082213:44 MELI (ANTINUCLEAR ANTIBODY) Comments: PATIENT NOT FASTINGPERFORMED BY: [facility]6370 [facility] [id number] BY: [address] [id number] ([id number]) MELI Direct Negative (Normal) 96-Quk-608895:44 CBC WITH MANUAL DIFF Comments: PATIENT NOT FASTINGPERFORMED BY: [place] [id number] [facility] [id number] BY: [address] [id number] Inf ormation: ADD [id number] AND DRAW FEE 99 1538 (76667) Immature Grans (Abs) 0.0 {x10E3/uL} (Normal) Range: 0.0-0.1 Baso (Absolute) 0.0 {x10E3/uL} (Normal) Range: 0.0-0.2 Eos (Absolute) 0.4 {x10E3/uL} (Normal) Range: 0.0-0.4 Immature Granulocytes 0 % (Normal) Range: 0-1 Lymphs (Absolute) 1.7 {x10E3/uL} (Normal) Range: 0.7-4.5 Monocytes(Absolute) 0.5 {x10E3/uL} (Normal) Range: 0.1-1.0 Neutrophils (Absolute) 4.1 {x10E3/uL} (Normal) Range: 1.8-7.8 Basos 1 % (Normal) Range: 0-3 Eos 6 % (Normal) Range: 0-7 Lymphs 26 % (Normal) Range: 14-46 Monocytes 7 % (Normal) Range: 4-13 Neutrophils 60 % (Normal) Range: 40-74 MCHC 32.3 g/dL (Normal) Range: 32.0-36.0 Platelets 234 {x10E3/uL} (Normal) Range: 140-415 RDW 14.9 % (Normal) Range: 11.7-15.0 MCH 27.6 pg (Normal) Range: 27.0-34.0 Hematocrit 35.3 % (Normal) Range: 34.0-44.0 Hemoglobin 11.4 g/dL (Abnormal) Range: 11.5-15.0 MCV 86 fL (Normal) Range: 80-98 RBC 4.13 {x10E6/uL} (Normal) Range: 3.80-5.10 WBC 6.8 {x10E3/uL} (Normal) Range: 4.0-10.5 89-Zcz-719539:44 METABOLIC PANEL, Comments: PATIENT NOT FASTINGPERFORMED BY: CB [facility] Zcxoqa7464 [facility] [id number] BY: BN [facility] [address] [id number] [facility] (15315) ALT (SGPT) 21 [iU]/L (Normal) Range: 0-40 A/G Ratio 1.8 (Normal) Range: 1.1-2.5 Alkaline Phosphatase, S 100 [iU]/L (Normal) Range: 25-165 AST (SGOT) 15 [iU]/L (Normal) Range: 0-40 Bilirubin, Total 0.5 mg/dL (Normal) Range: 0.0-1.2 Globulin, Total 2.4 g/dL (Normal) Range: 1.5-4.5 Albumin, Serum 4.3 g/dL (Normal) Range: 3.6-4.8 Protein, Total, Serum 6.7 g/dL (Normal) Range: 6.0-8.5 Calcium, Serum 9.3 mg/dL (Normal) Range: 8.6-10.2 Carbon Dioxide, Total 24 mmol/L (Normal) Range: 20-32 Chloride, Serum 104 mmol/L (Normal) Range: 97-108 Potassium, Serum 4.5 mmol/L (Normal) Range: 3.5-5.2 BUN/Creatinine Ratio 20 (Normal) Range: 8-27 eGFR AfricanAmerican >59 mL/min/1.73 Comments: Note: Persistent reduction for 3 months or more in an eGFR<60 mL/min/1.73 m2 defines CKD. Patients with eGFR values>/=60 mL/min/1.73 m2 may also have CKD if evidence of persistentproteinuria is (Normal) present. Additional information may be found [email or web address]. Sodium, Serum 140 mmol/L (Normal) Range: 135-145 BUN 17 mg/dL (Normal) Range: 5-26 Creatinine, Serum 0.85 mg/dL (Normal) Range: 0.57-1.00 eGFR >59 mL/min/1.73 (Normal) Glucose, Serum 105 mg/dL (Abnormal) Range: 65-99 :33 HgA1C , Office (63868) HgA1C , Office 6.8 % (Normal) Range: 4.6 - 7.1 :33 Blood Glucose , Office (23483) Blood Glucose , Office 135 (Normal) :22 LIPID HDL 48 mg/dL (Normal) Comments: Reference RangeHDL <40 mg/dL Low HDL CholesterolHDL >or= 60 mg/dL High HDL Cholesterol LDL 80 mg/dL (Normal) Range: 0-130 TRIG 143 mg/dL (Normal) Comments: Serum Triglycerides Reference IntervalNormal <150 mg/dLBorderline high 150 - 199 mg/dLHigh 200 - 499 mg/ dLVery High > or = 500 mg/dL VLDL 29 mg/dL (Normal) Range: 5-40 CHOL 157 mg/dL (Normal) Comments: <200 mg/dL Xqczvavoe947-925 mg/dL Borderline>240 mg/dL High Risk :22 LIVER ALB 3.5 g/dL (Normal) Range: 3.4-5.0 ALK P 97 U/L (Normal) Range: 50-136 ALT 21 U/L (Normal) Range: 12-78 AST 16 U/L (Normal) Range: 15-37 D BILI 0.12 mg/dL (Normal) Range: 0.00-0.30 T BILI 0.40 mg/dL (Normal) Range: 0.00-1.00 T PROT 6.5 g/dL (Normal) Range: 6.4-8.2 :22 TSH 1.54 {uIU/mL} Range: 0.358-3.74 (Normal) :22 VIT D,25 83240 36.8 ng/mL (Normal) Range: 32.0-100.0 Comments: Recent studies consider the lower limit of 32.0 ng/mL to tammy threshold for optimal health.Pepito ANNE. J Nutr. 2004;135(2):317-22.Performed at: [facility] 9[address] 296Lab Director: Tona Emmanuel MD, Phone: [phone] :22 VITAMIN B12 264 pg/mL (Normal) Range: 254-1320 Comments: There is a low frequency possibility that high titers ofintrinsic blocking antibodies may not be completelyinactivated during the reaction pretreatment stepof this testing method. If test results are in conflictwith the clinical diagnosis, patient should be testedfor the presence of intrinsic factor blocking antibodies. : Amylase, Serum 92 U/L (Normal) Comments: PERFORMED BY: [facility] [id number] Range: 31-124 32-Eqq-296994:34 CBC With Differential/Platelet Comments: PERFORMED BY: [facility] CountyAmyukz6354 [facility] [id number] Baso (Absolute) 0.0 {x10E3/uL} (Normal) Range: 0.0-0.2 Immature Grans (Abs) 0.0 {x10E3/uL} (Normal) Range: 0.0-0.1 Immature Granulocytes 0 % (Normal) Range: 0-1 Eos (Absolute) 0.5 {x10E3/uL} (Abnormal) Range: 0.0-0.4 Lymphs (Absolute) 1.9 {x10E3/uL} (Normal) Range: 0.7-4.5 Monocytes(Absolute) 0.5 {x10E3/uL} (Normal) Range: 0.1-1.0 Neutrophils (Absolute) 4.6 {x10E3/uL} (Normal) Range: 1.8-7.8 Basos 1 % (Normal) Range: 0-3 Eos 6 % (Normal) Range: 0-7 Lymphs 25 % (Normal) Range: 14-46 Monocytes 7 % (Normal) Range: 4-13 Neutrophils 61 % (Normal) Range: 40-74 MCHC 33.2 g/dL (Normal) Range: 32.0-36.0 Platelets 272 {x10E3/uL} (Normal) Range: 140-415 RDW 14.0 % (Normal) Range: 11.7-15.0 Hematocrit 34.3 % (Normal) Range: 34.0-44.0 MCH 27.3 pg (Normal) Range: 27.0-34.0 MCV 82 fL (Normal) Range: 80-98 Hemoglobin 11.4 g/dL (Abnormal) Range: 11.5-15.0 RBC 4.18 {x10E6/uL} (Normal) Range: 3.80-5.10 WBC 7.5 {x10E3/uL} (Normal) Range: 4.0-10.5 52-Scq-365851:34 Comp. Metabolic Panel (14) Comments: PERFORMED BY: [facility] CountyPakwhs7328 [facility] [id number] ALT (SGPT) 18 [iU]/L (Normal) Range: 0-40 Alkaline Phosphatase, S 95 [iU]/L (Normal) Range: 25-165 AST (SGOT) 14 [iU]/L (Normal) Range: 0-40 A/G Ratio 1.9 (Normal) Range: 1.1-2.5 Bilirubin, Total 0.6 mg/dL (Normal) Range: 0.0-1.2 Albumin, Serum 4.1 g/dL (Normal) Range: 3.6-4.8 Calcium, Serum 8.8 mg/dL (Normal) Range: 8.6-10.2 Globulin, Total 2.2 g/dL (Normal) Range: 1.5-4.5 Protein, Total, Serum 6.3 g/dL (Normal) Range: 6.0-8.5 Carbon Dioxide, Total 25 mmol/L (Normal) Range: 20-32 Chloride, Serum 106 mmol/L Range: 97-108 (Normal) Potassium, Serum 4.0 mmol/L Range: 3.5-5.2 (Normal) BUN/Creatinine Ratio 13 (Normal) Range: 8-27 eGFR AfricanAmerican >59 mL/min/1.73 Comments: Note: Persistent reduction for 3 months or more in an eGFR<60 mL/min/1.73 m2 defines CKD. Patients with eGFR values>/=60 mL/min/1.73 m2 may also have CKD if evidence of persistentproteinuria is (Normal) present. Additional information may be found [email or web address]. Sodium, Serum 142 mmol/L Range: 135-145 (Normal) eGFR >59 mL/min/1.73 (Normal) BUN 10 mg/dL (Normal) Range: 5-26 Creatinine, Serum 0.77 mg/dL Range: 0.57-1.00 (Normal) Glucose, Serum 125 mg/dL Range: 65-99 (Abnormal) 14-Feb-2010 Lipase, Serum 57 U/L (Normal) Comments: PERFORMED BY: [facility] Uudnyz7118 [facility] [id number] 13:34 Range: 0-59 03-Feb-20109:00 GALLBL[employer]DER Radiology Report See Note (Normal) Comments: Exam Number: [id number] CLINICAL:Epigastric pain and bloating. ABDOMINAL ULTRASOUND TECHNIQUE:Transabdominal COMPARISON:10/18/06 FINDINGS:Borderline hepatomegaly with fatty metamorphosis. There is no dila tation of the intrahepatic or extrahepatic bileducts. The common bile duct measures 3.3 mm. Normal gallbladder. Normal visualized head, body and tail of the pancreas. The spleen was not imaged. Rafaela l right kidney. The right kidney measures 11.4 x 7.5 x 5.7there are two cysts in the right kidney measuring 4.0 x 3.3 x 3.9and 2.9 x 1.9 x 2.9 cm. Mild hydronephrosis, etiology uncertain. The left kid angeliac was not imaged. Normal visualized abdominal aorta. Normal visualized inferior venacava. There is no ascites. IMPRESSION:Borderline hepatomegaly with fatty metamorphosis.Renal cysts as described abo ve along with mild hydronephrosis,etiology indeterminate. Reported By: KATHRYN MUNOZ M.D. 6-Bog-427577:19 CBC WITH MANUAL DIFF Comments: PATIENT NOT FASTINGPERFORMED BY: CORTEZ [facility] Igbeph4191 [facility] [id number] Information: [id number] (97124) Baso (Absolute) 0.1 {x10E3/uL} (Normal) Range: 0.0-0.2 Eos (Absolute) 1.6 {x10E3/uL} (Abnormal) Range: 0.0-0.4 Immature Grans (Abs) 0.0 {x10E3/uL} (Normal) Range: 0.0-0.1 Immature Granulocytes 0 % (Normal) Range: 0-1 Lymphs (Absolute) 2.5 {x10E3/uL} (Normal) Range: 0.7-4.5 Monocytes(Absolute) 0.6 {x10E3/uL} (Normal) Range: 0.1-1.0 Neutrophils (Absolute) 5.2 {x10E3/uL} (Normal) Range: 1.8-7.8 Basos 1 % (Normal) Range: 0-3 Eos 16 % (Abnormal) Range: 0-7 Lymphs 25 % (Normal) Range: 14-46 Monocytes 6 % (Normal) Range: 4-13 Neutrophils 52 % (Normal) Range: 40-74 Platelets 282 {x10E3/uL} (Normal) Range: 140-415 MCH 28.1 pg (Normal) Range: 27.0-34.0 MCHC 34.2 g/dL (Normal) Range: 32.0-36.0 RDW 14.1 % (Normal) Range: 11.7-15.0 Hematocrit 34.5 % (Normal) Range: 34.0-44.0 MCV 82 fL (Normal) Range: 80-98 Hemoglobin 11.8 g/dL (Normal) Range: 11.5-15.0 RBC 4.20 {x10E6/uL} (Normal) Range: 3.80-5.10 WBC 9.9 {x10E3/uL} (Normal) Range: 4.0-10.5 8-Rhm-437560:19 METABOLIC PANEL, COMPREHENSIVE Comments: PATIENT NOT FASTINGPERFORMED BY: [facility] CountyJbyhdv0124 [facility] [id number] ([id number]) ALT (SGPT) 19 [iU]/L (Normal) Range: 0-40 A/G Ratio 1.8 (Normal) Range: 1.1-2.5 Alkaline Phosphatase, S 95 [iU]/L (Normal) Range: 25-165 AST (SGOT) 19 [iU]/L (Normal) Range: 0-40 Bilirubin, Total 0.5 mg/dL (Normal) Range: 0.0-1.2 Albumin, Serum 4.3 g/dL (Normal) Range: 3.6-4.8 Globulin, Total 2.4 g/dL (Normal) Range: 1.5-4.5 Protein, Total, Serum 6.7 g/dL (Normal) Range: 6.0-8.5 Calcium, Serum 9.8 mg/dL (Normal) Range: 8.6-10.2 Carbon Dioxide, Total 23 mmol/L (Normal) Range: 20-32 Chloride, Serum 105 mmol/L (Normal) Range: 97-108 BUN/Creatinine Ratio 18 (Normal) Range: 8-27 eGFR AfricanAmerican >59 mL/min/1.73 Comments: Note: Persistent reduction for 3 months or more in an eGFR<60 mL/min/1.73 m2 defines CKD. Patients with eGFR values>/=60 mL/min/1.73 m2 may also have CKD if evidence of persistentproteinuria is (Normal) present. Additional information may be found [email or web address]. Potassium, Serum 4.4 mmol/L (Normal) Range: 3.5-5.2 Sodium, Serum 142 mmol/L (Normal) Range: 135-145 Creatinine, Serum 0.77 mg/dL (Normal) Range: 0.57-1.00 eGFR >59 mL/min/1.73 (Normal) BUN 14 mg/dL (Normal) Range: 5-26 Glucose, Serum 83 mg/dL (Normal) Range: 65-99 :20 KNEE,4 OR MORE VIEWS (MT) Radiology Report See Note (Normal) Comments: Exam Number: [id number] CLINICAL:This is a 69-year-old female patient with medial knee pain. X-RAY EXAMINATION RIGHT KNEE TECHNIQUE:Four views of the knee. The AP and lateral views were obta inedweight b earing. COMPARISON:None. FINDINGS:Normal visualized distal femur. Normal visualized proximal tibia. Normal visualized proximal fibula. There is mild degenerative arthrosis of the medial femorotibialcomp artment. Normal lateral femorotibial compartment. Normal patellofemoral articulation. There is no demonstrated soft tissue swelling. IMPRESSION:Chronic degenerative changes, as discussed above. Reported By: TEO WAYNE 2-Bob-379736:12 HgA1C , Office (25008) HgA1C , Office 7.1 % (Normal) Range: 4.6 - 7.1 1-Yzw-558172:12 Blood Glucose , Office (53963) Blood Glucose , Office 129 (Normal) 29-Dec-20099:45 COMP METABOLIC A/G 1.2 {RATIO} (Normal) Range: 0.9-2.4 ALB 3.8 g/dL (Normal) Range: 3.4-5.0 ALK P 98 U/L (Normal) Range: 50-136 ALT 22 U/L (Normal) Range: 12-78 AST 9 U/L (Abnormal) Range: 15-37 CA 8.8 mg/dL (Normal) Range: 8.5-10.1 CL 103 mmol/L (Normal) Range: 98-107 CO2 27.0 mmol/L (Normal) Range: 21.0-32.0 GAP 8 (Normal) Range: 5-15 GLOB 3.2 g/dL (Normal) Range: 2.7-4.2 K 4.4 mmol/L (Normal) Range: 3.5-5.1 NA 138 mmol/L (Normal) Range: 136-145 T BILI 0.70 mg/dL (Normal) Range: 0.00-1.00 BUN 19 mg/dL (Abnormal) Range: 7-18 BUN/CRE 31.7 {RATIO} (Abnormal) Range: 10-20 CREAT,SERUM 0.6 mg/dL (Normal) Range: 0.6-1.0 EST GFR 106 mL/min (Normal) EST GFR - AA 128 mL/min (Normal) GLU 124 mg/dL (Abnormal) Range: 70-110 Comments: Fasting Glucose result from 110 to <126 mg/dLsuggests IMPAIRED HOMEOSTASIS per A.D.A. criteria. T PROT 7.0 g/dL (Normal) Range: 6.4-8.2 :45 LIPID LDL 86 mg/dL (Normal) Range: 0-130 VLDL 28 mg/dL (Normal) Range: 5-40 HDL 41 mg/dL (Normal) Comments: Reference RangeHDL <40 mg/dL Low HDL CholesterolHDL >or= 60 mg/dL High HDL Cholesterol TRIG 140 mg/dL (Normal) Comments: Serum Triglycerides Reference IntervalNormal <150 mg/dLBorderline high 150 - 199 mg/dLHigh 200 - 499 mg/ dLVery High > or = 500 mg/dL CHOL 155 mg/dL (Normal) Comments: <200 mg/dL Sopubitup866-613 mg/dL Borderline>240 mg/dL High Risk :45 VIT D,25 33573 42.5 ng/mL (Normal) Range: 32.0-100.0 Comments: Recent studies consider the lower limit of 32.0 ng/mL to tammy threshold for optimal health.Pepito ANNE. J Nutr. 2004;135(2):317-22.Performed at: - [facility] [id number] Director: Tona Emmanuel MD :53 LIPID HDL 34 mg/dL (Abnormal) Comments: Reference RangeHDL <40 mg/dL Low HDL CholesterolHDL >or= 60 mg/dL High HDL Cholesterol LDL 65 mg/dL (Normal) Range: 0-130 TRIG 143 mg/dL (Normal) Comments: Serum Triglycerides Reference IntervalNormal <150 mg/dLBorderline high 150 - 199 mg/dLHigh 200 - 499 mg/ dLVery High > or = 500 mg/dL VLDL 29 mg/dL (Normal) Range: 5-40 CHOL 128 mg/dL (Normal) Comments: <200 mg/dL Sotaxrisc160-717 mg/dL Borderline>240 mg/dL High Risk :53 MICROALB:CRE UR MALB:CREAT 19.1 {mg/g_CRE} (Normal) MICROALBUMIN,UR 29.1 mg/L (Normal) UR CREAT 152.0 mg/dL (Normal) :53 TSH 0.93 {uIU/mL} (Normal) Range: 0.358-3.74 :53 VIT D,25 98165 22.7 ng/mL (Abnormal) Range: 32.0-100.0 Comments: Recent studies consider the lower limit of 32.0 ng/mL to tammy threshold for optimal health.Pepito ANNE. J Nutr. 2004;135(2):317-22.Performed At: [facility] [place], [place] [id number] :53 VITAMIN B12 337 pg/mL (Normal) Range: 254-1320 :09 HgA1C , Office (72164) HgA1C , Office 7.1 % (Normal) Range: 4.6 - 7.1 :09 Blood Glucose , Office (84240) Blood Glucose , Office 108 (Normal) 0-Hrd-021189:33 KNEE,4 OR MORE VIEWS (MT) Radiology Report See Note (Normal) Comments: Exam Number: [id number] CLINICAL:Pain X-RAY EXAMINATION RIGHT KNEE TECHNIQUE:Three view(s) of the knee were obtained. COMPARISON:None. FINDINGS:Normal visualized distal femur, proximal tibia and proximal fibula without a demonstrated fracture or osseous abnormality. Normal medial and lateral femorotibial compartments of the knee without articular joint space narrowing or osseous abnormality. Normal pro ximal tibiofibular articulation. Normal patellofemoral articulation. There are no plain film findings to suggest a joint effusion of the knee. There are no definitive plain film findings of demineraliza tion of the knee. IMPRESSION:Normal x-ray examination of the knee. Reported By: RAYMOND ARRIAGA M.D. :33 TIBIA AND FIBULA,2 VIEWS (MT) Radiology Report See Note (Normal) Comments: Exam Number: [id number] CLINICAL:Pain X-RAY EXAMINATION: RIGHT TIBIA AND FIBULA TECHNIQUE:Two views of the tibia and fibula were obtained. COMPARISON:None. FINDINGS:Normal visualized tibia and fibula,. There is no demonstrated fracture or osseous abnormality. There is no demonstrated articular abnormality. There are no definitive plain film findings of demineralization. Normal visualized soft tissue s tructures. IMPRESSION:Normal plain film x-ray examination of the tibia and fibula. Reported By: RAYMOND ARRIAGA M.D. :31 FEMUR,2 VIEWS (MT) Radiology See Note Comments: Exam Number: [id number] CLINICAL:Pain X-RAY EXAMINATION: RIGHT FEMUR TECHNIQUE:Two views of the lower extremity were obtained. COMPARISON:None. FINDINGS:Normal visualized femur, which includes the There Report (Normal) is no demonstrated fracture or osseous abnormality. There is no demonstrated articular abnormality. There are no definitive plain film findings of demineralization. Normal visualized soft tissue structu res. IMPRESSION:No significant bony abnormality. ADDENDUM Findings should read: Normal Visualized femur. Reported By: RAYMOND ARRIAGA M.D. 4-Mfb-808942:43 UNILAT LT DIAG DIGITAL & CAD Radiology Report See Note (Normal) Comments: Exam Number: [id number] MAMMOGRAM, UNILATERAL LEFT DIAGNOSTIC DIGITAL AND CAD HISTORYAbnormal mammogram, left breast. TECHNIQUEFull field digital images were obtained in left true lateral, rolledcranio caudal, and spot mediolateral oblique and craniocaudalprojections. CAD images were reviewed. The current study is compared to the examinations of March 12, 2006,and June 21, 2009. FINDINGSThere is a jbismahg-ip-wukgew extent of fibroglandular parenchymapresent. There is no skin thickening or retraction, architecturaldistortion, or cluster of suspicious microcalcifications. Theapparent focal density seen in the upper outer left breast on theexamination of June 21, 2009, is not identified. This musthave represented superimposition of normal parenchymal structures. Ifthere is no suspici ous palpable abnormality, followup mammogram in 1year is recommended. IMPRESSIONThere is no radiographic evidence of malignancy identified. FINAL ASSESSMENTBenign findings. BIRADS Category 2. A l yoli regarding these results has been sent to the patient. This interpretation was rendered by a radiologist certified under theMammography Quality Standards Act of 1992 (MQSA). The mammograms wereal so examined with computer-aided detection software ([employer], [employer] Reported By: ANTHONY PALOMARES M.D. [id number] BILAT SCRN DIGITAL & CAD Radiology Report See Note (Normal) Comments: Exam Number: [id number] MAMMOGRAM, BILATERAL SCREENING DIGITAL AND CAD HISTORYRoutine screening. Full field digital images were obtained in mediolateral oblique andcraniocaudal projections. CAD images w ere reviewed. The current study is compared to the examination of March 13, 2006. There is a moderate to severe extent of fibroglandular parenchymapresent. The breast parenchyma is diffusely heteroge neous. There isno skin thickening or retraction, architectural distortion, or clusterof suspicious microcalcifications. There are scattered calcificationspresent. There are multiple small metal marker s placed on moles onboth sides. On the right, there is an area of asymmetric parenchymaldensity in the upper outer quadrant of the left breast. This was notseen previously. For further evaluation, r oll craniocaudal and spotmediolateral oblique, and craniocaudal views are recommended. IMPRESSIONPossible new density on the left. Additional views are recommended. FINAL ASSESSMENTBIRADS Category 0 - I ncomplete; need additional imaging evaluation. A letter regarding these results has been sent to the patient. This interpretation was rendered by a radiologist certified under theMammography Quality St andards Act of 1991 (MQSA). The mammograms werealso examined with computer- aided detection software ([facility] Reported By: ANTHONY PALOMARES M.D. 73-Dnr-181511:03 DEXA BONE DENSITY STUDY () Radiology Report See Note (Normal) Comments: Exam Number: [id number] BONE DENSITOMETRY HISTORYOsteopenia. TECHNIQUE Bone densitometry of the lumbar spine and both hips is now beingperformed. The best criteria for evaluation of osteoporosis is theT-value, which represents the comparison of the patient's bone mass flako expected peak bone mass. For most patients, the mean T-value of S2eoyshlz L4 is used to evaluate the lumbar spine. To evalua te the hip,the lower T-value of the femoral neck or total hip is used. FINDINGSIn this patient, the mean T-value of L1 through L4 is 0.3 which isnormal. Bone mineral density is measured at 18.3% greate r than [id number].Digital lateral view for evaluation of vertebral deformity only demonstrates no obvious compression fracture.The T-value of the left femoral neck is -0.7 which is normal. The T-value of th e total left hip is 0.2 which is normal. Bonemineral density is measured at 6.5% greater than in 2007.The T-value of the right femoral neck is -0.5 which is normal.The T-value of the total right hip is 0 which is normal. IMPRESSIONBone densitometry of the lumbar spine and both hips is within normallimits. Reported By: ANTHONY PALOMARES M.D. 62-Pap-[id number]:09 BRAIN/HEAD W/WO CONTRAST Radiology Report See Note (Normal) Comments: Exam Number: [id number] CLINICAL:69 year old female with altered mental status and forgetfulness. CT BRAIN WITH AND WITHOUT CONTRAST COMPARISON:None. TECHNIQUE:Transaxial imaging was performed pre-and po st contrast administration. The examination was performed with intravenous administration of 100 ml of Isovue-300 contrast material. FINDINGS:Volume loss is present, with mild widening of the cortical s ulci and fissures. The ventricles also show mild widening. There is no definite acute infarction. Patchy hypodensities are present in the bilateral periventricular white matter, greater on the left, sug gesting moderate chronic small vessel ischemic disease. 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 There is no intra-axial or extra-axial hemorrhage or demonstrated mass lesion. No abno rmal enhancement is seen. No acute process in the posterior fossa. Cerebellar atrophic changes are noted. Atherosclerotic calcifications are present and the internal carotid and vertebral arteries. Norm al osseous calvarium, visualized facial bones, central skull base, and temporal bones without a demonstrated fracture or destructive process. Normal soft tissue structures of the calvarium. Normal visua lized paranasal sinuses without mucosal thickening or air-fluid levels. IMPRESSION:No acute or evolving intracranial process. Moderate chronic small vessel ischemic disease and volume loss are present. Reported By: ANTHONY GRIER M.D. :02 CBCD,SMEAR DIFF CELLS COUNTED 100 (Normal) LYMPH 20 % (Normal) Range: 19-41 MCH 28.7 pg (Normal) Range: 27.0-32.0 MCHC 34.1 g/dL (Normal) Range: 32-36 MCV 84.1 fL (Normal) Range: 81-99 MONOCYTE 4 % (Normal) Range: 0-10 PLT 239 K/mm3 (Normal) Range: 150-450 PLT EST SeeNote (Normal) Comments: Result: ADEQUATE RDW 14.6 % (Normal) Range: 11.6-14.6 RED CELL MORPH SeeNote {NORMAL} (Normal) Comments: Result: NORM C+C SEGS 76 % (Abnormal) Range: 47-70 HCT 33.3 % (Abnormal) Range: 37-47 HGB 11.4 g/dL (Abnormal) Range: 12.0-16.0 RBC 3.96 {M/mm3} (Abnormal) Range: 4.2-5.4 WBC 6.7 K/mm3 (Normal) Range: 4.4-11.0 :02 COMP METABOLIC A/G 1.1 {RATIO} (Normal) Range: 0.9-2.4 ALB 3.5 g/dL (Normal) Range: 3.4-5.0 ALK P 79 U/L (Normal) Range: 50-136 ALT 30 U/L (Normal) Range: 30-65 AST 15 U/L (Normal) Range: 15-37 BUN 13 mg/dL (Normal) Range: 7-18 BUN/CRE 14.4 {RATIO} (Normal) Range: 10-20 CA 8.7 mg/dL (Normal) Range: 8.5-10.1 CL 107 mmol/L (Normal) Range: 98-107 CO2 27.0 mmol/L (Normal) Range: 21.0-32.0 CREAT,SERUM 0.9 mg/dL (Normal) Range: 0.6-1.0 EST GFR 66 mL/min (Normal) EST GFR - AA 80 mL/min (Normal) GAP 8 (Normal) Range: 5-15 GLOB 3.1 g/dL (Normal) Range: 2.7-4.2 GLU 136 mg/dL (Abnormal) Range: 70-110 Comments: Fasting Glucose result greater than or equal to 126 mg/dL suggests DIABETES MELLITUS per A.D.A. criteria. K 3.8 mmol/L (Normal) Range: 3.5-5.1 NA 142 mmol/L (Normal) Range: 136-145 T BILI 0.50 mg/dL (Normal) Range: 0.00-1.00 T PROT 6.6 g/dL (Normal) Range: 6.4-8.2 :02 IRON 59 ug/dL (Normal) Range: 50-170 :02 LIPID CHOL 170 mg/dL (Normal) Comments: <200 mg/dL Desirable 200-240 mg/dL Borderline >240 mg/dL High Risk HDL 39 mg/dL (Normal) Comments: Reference Range HDL <40 mg/dL Low HDL Cholesterol HDL >or= 60 mg/dL High HDL Cholesterol LDL 99 mg/dL (Normal) Range: 0-130 TRIG 161 mg/dL (Normal) Comments: Serum Triglycerides Reference Interval Normal <150 mg/dL Borderline high 150 - 199 mg/dL High 200 - 499 mg/dL Very High > or = 500 mg/dL VLDL 32 mg/dL (Normal) Range: 5-40 :02 MICROALB:CRE UR MALB:CREAT 38.4 {mg/g_CRE} (Abnormal) MICROALBUMIN,UR 47.5 mg/L (Normal) UR CREAT 123.4 mg/dL (Normal) 07-Jun-2009 VIT D,25 81184 19.7 ng/mL Range: 32.0-100.0 9:02 (Abnormal) Comments: Recent studies consider the lower limit of 32.0 ng/mL to tammy threshold for optimal health.Pepito ANNE. J Nutr. 2004;135(2):317- 22.Performed At: [facility] [place], [place] [id number] 07-Jun-2009 VITAMIN B12 328 pg/mL (Normal) Range: 254-1320 9:02 11-Feb-2009 Homocyst(e)ine, Plasma 9.8 umol/L (Normal) Comments: PERFORMED BY: [employer] [id number] 14:28 Range: 0.0-15.0 11-Feb-2009 Methylmalonic Acid, 336 nmol/L (Normal) Comments: PERFORMED BY: [employer] [id number] 14:28 Serum Range: 73-376 Comments: The reference range for methylmalonic acid has been set at +3sd abovethe mean for healthy blood bank donors. In the clinical assessment ofpatients with megaloblastic anemias a cutoff of +3sd provides gr eaterspecificity in the diagnosis of the vitamin deficiency states,despite the sacrifice of some sensitivity. 11-Feb-2009 TSH 2.700 {uIU/mL} Comments: PERFORMED BY: [employer] [facility] [address] [id number] 14:28 (Normal) Range: 0.450-4.500 11-Feb-2009 Vitamin B12 231 pg/mL (Normal) Comments: PERFORMED BY: [employer] [address] [id number] 14:28 Range: 211-911 1-Tio-921747:09 HAND,MIN 3 VIEWS (MT) Radiology Report See Note (Normal) Comments: Exam Number: [id number] RIGHT WRIST CLINICAL DATAFell and injured the right hand and wrist. Pain in the second throughfifth metacarpal area with swelling. 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 There is some soft tissue prominence over the dorsal aspect of the carpal bones. IMPRESSIONNo evidence of fracture or dislocation of the right wrist. RIGHT HAND Three views of the right hand show obvious fracture or dislocation.There is a mild t o moderate degenerative osteoarthritis of the firstmetacarpal/carpal joint. There is mild to moderate degenerativeosteoarthritis of multiple distal interphalangeal joints. There is degenerative osteo arthritis at the 4th and the 5th proximalinterphalangeal joints. There is some diffuse soft tissue prominenceof the dorsal aspect of the metacarpals and carpal bones. IMPRESSIONNo evidence of fract ure or dislocation of the right hand. Mild tomoderate degenerative osteoarthritis right hand. Reported By: FERNANDO TUCKER 2-Hun-356953:09 WRIST,MIN 3 VIEWS (MT) Radiology Report See Note (Normal) Comments: Exam Number: [id number] RIGHT WRIST CLINICAL DATAFell and injured the right hand and wrist. Pain in the second throughfifth metacarpal area with swelling. 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 There is some soft tissue prominence over the dorsal aspect of the carpal bones. IMPRESSIONNo evidence of fracture or dislocation of the right wrist. RIGHT HAND Three views of the right hand show obvious fracture or dislocation.There is a mild t o moderate degenerative osteoarthritis of the firstmetacarpal/carpal joint. There is mild to moderate degenerativeosteoarthritis of multiple distal interphalangeal joints. There is degenerative osteo arthritis at the 4th and the 5th proximalinterphalangeal joints. There is some diffuse soft tissue prominenceof the dorsal aspect of the metacarpals and carpal bones. IMPRESSIONNo evidence of fract ure or dislocation of the right hand. Mild tomoderate degenerative osteoarthritis right hand. Reported By: FERNANDO TUCKER 03-Feb-20098:42 METABOLIC PANEL, COMPREHENSIVE Comments: PATIENT WAS FASTINGPERFORMED BY: [facility] CountyHfclji2742 [facility] [id number] [id number]) A/G Ratio 1.9 (Normal) Range: 1.1-2.5 Albumin, Serum 4.4 g/dL (Normal) Range: 3.6-4.8 Alkaline Phosphatase, S 92 [iU]/L (Normal) Range: 25-165 ALT (SGPT) 26 [iU]/L (Normal) Range: 0-40 AST (SGOT) 24 [iU]/L (Normal) Range: 0-40 Bilirubin, Total 0.4 mg/dL (Normal) Range: 0.1-1.2 BUN 13 mg/dL (Normal) Range: 5-26 BUN/Creatinine Ratio 16 (Normal) Range: 8-27 Calcium, Serum 9.3 mg/dL (Normal) Range: 8.5-10.6 Carbon Dioxide, Total 26 mmol/L (Normal) Range: 20-32 Chloride, Serum 102 mmol/L (Normal) Range: 97-108 Creatinine, Serum 0.82 mg/dL (Normal) Range: 0.57-1.00 eGFR >59 mL/min/1.73 (Normal) eGFR AfricanAmerican >59 mL/min/1.73 Comments: Note: Persistent reduction for 3 months or more in an eGFR<60 mL/min/1.73 m2 defines CKD. Patients with eGFR values>/=60 mL/min/1.73 m2 may also have CKD if evidence of persistentproteinuria is (Normal) present. Additional information may be found [email or web address]. Globulin, Total 2.3 g/dL (Normal) Range: 1.5-4.5 Glucose, Serum 149 mg/dL (Abnormal) Range: 65-99 Potassium, Serum 4.5 mmol/L (Normal) Range: 3.5-5.2 Protein, Total, Serum 6.7 g/dL (Normal) Range: 6.0-8.5 Sodium, Serum 141 mmol/L (Normal) Range: 135-145 :42 TSH ([id number]) Comments: PATIENT WAS FASTINGPERFORMED BY: [facility] Didany4639 [facility] [id number] TSH 4.980 {uIU/mL} (Abnormal) Range: 0.450-4.500 :42 MICROALBUMIN: CREATININE RATIO Comments: PATIENT WAS FASTINGPERFORMED BY: Alexandre de ParisLourdes [facility] Center of Burlington CountyLgonsn1697 [facility] [id number] ([id number]) AND (11256) Creatinine, Urine 130.9 mg/dL (Normal) Range: 15.0-278.0 Microalb/Creat Ratio 66.4 {ug/mg_creat} (Abnormal) Range: 0.0-30.0 Microalbumin, Urine 86.9 ug/mL (Abnormal) Range: 0.0-17.0 :42 LIPID PANEL ([id number]) Comments: PATIENT WAS FASTINGPERFORMED BY: [employer] Hjclcx3575 [facility] [id number] Cholesterol, Total 148 mg/dL (Normal) Range: 100-199 HDL Cholesterol 42 mg/dL (Normal) Comments: According to ATP-III Guidelines, HDL-C >59 mg/dL is considered anegative risk factor for CHD. LDL Cholesterol Calc 78 mg/dL (Normal) Range: 0-99 LDL/HDL Ratio 1.9 {ratio_units} (Normal) Range: 0.0-3.2 Triglycerides 141 mg/dL (Normal) Range: 0-149 VLDL Cholesterol Priscilla 28 mg/dL (Normal) Range: 5-40 :42 CBC WITH MANUAL DIFF ([id number]) Comments: PATIENT WAS FASTINGClinical Information: ADD DRAW FEE [id number] ADD J [id number] PERFORMED BY: [facility] Onvudh1115 [facility] [id number] Baso (Absolute) 0.1 {x10E3/uL} (Normal) Range: 0.0-0.2 Basos 1 % (Normal) Range: 0-3 Eos 3 % (Normal) Range: 0-7 Eos (Absolute) 0.2 {x10E3/uL} (Normal) Range: 0.0-0.4 Hematocrit 36.4 % (Normal) Range: 34.0-44.0 Hemoglobin 12.5 g/dL (Normal) Range: 11.5-15.0 Lymphs 25 % (Normal) Range: 14-46 Lymphs (Absolute) 2.0 {x10E3/uL} (Normal) Range: 0.7-4.5 MCH 29.9 pg (Normal) Range: 27.0-34.0 MCHC 34.3 g/dL (Normal) Range: 32.0-36.0 MCV 87 fL (Normal) Range: 80-98 Monocytes 5 % (Normal) Range: 4-13 Monocytes(Absolute) 0.4 {x10E3/uL} (Normal) Range: 0.1-1.0 Neutrophils 66 % (Normal) Range: 40-74 Neutrophils (Absolute) 5.1 {x10E3/uL} (Normal) Range: 1.8-7.8 Platelets 263 {x10E3/uL} (Normal) Range: 140-415 Comments: Please note reference interval change RBC 4.18 {x10E6/uL} (Normal) Range: 3.80-5.10 RDW 15.2 % (Abnormal) Range: 11.7-15.0 WBC 7.8 {x10E3/uL} (Normal) Range: 4.0-10.5 :42 VITAMIN B-12 (CYANOCOBALAMIN) Comments: PATIENT WAS FASTINGPERFORMED BY: [facility]CoL[facility] CountyXecmye9043 [facility] [id number] ([id number]) Vitamin B12 232 pg/mL (Normal) Range: 211-911 2-Lcg-929913:06 Blood Glucose , Office (10454) Blood Glucose , Office 155 (Normal) :27 CBCD,SMEAR DIFF BAND 1 % (Normal) Range: 0-5 CELLS COUNTED 100 (Normal) EOS 1 % (Normal) Range: 0-5 HCT 36.5 % (Abnormal) Range: 37-47 HGB 12.5 g/dL (Normal) Range: 12.0-16.0 LYMPH 14 % (Abnormal) Range: 19-41 MCH 28.8 pg (Normal) Range: 27.0-32.0 MCHC 34.2 g/dL (Normal) Range: 32-36 MCV 84.1 fL (Normal) Range: 81-99 MONOCYTE 4 % (Normal) Range: 0-10 PLT 269 K/mm3 (Normal) Range: 150-450 PLT EST SeeNote (Normal) Comments: Result: ADEQUATE PLT MORPH GIANT (Normal) RBC 4.33 {M/mm3} (Normal) Range: 4.2-5.4 RDW 14.4 % (Normal) Range: 11.6-14.6 RED CELL MORPH SeeNote {NORMAL} (Normal) Comments: Result: NORM C+C SEGS 80 % (Abnormal) Range: 47-70 WBC 8.7 K/mm3 (Normal) Range: 4.4-11.0 :27 COMP METABOLIC A/G 1.1 {RATIO} (Normal) Range: 0.9-2.4 ALB 3.9 g/dL (Normal) Range: 3.4-5.0 ALK P 103 U/L (Normal) Range: 50-136 ALT 38 U/L (Normal) Range: 30-65 AST 16 U/L (Normal) Range: 15-37 BUN 14 mg/dL (Normal) Range: 7-18 BUN/CRE 15.6 {RATIO} (Normal) Range: 10-20 CA 9.5 mg/dL (Normal) Range: 8.5-10.1 CL 102 mmol/L (Normal) Range: 98-107 CO2 30.8 mmol/L (Normal) Range: 21.0-32.0 CREAT,SERUM 0.9 mg/dL (Normal) Range: 0.6-1.0 EST GFR 66 mL/min (Normal) EST GFR - AA 80 mL/min (Normal) GAP 6 (Normal) Range: 5-15 GLOB 3.5 g/dL (Normal) Range: 2.7-4.2 GLU 136 mg/dL (Abnormal) Range: 70-110 Comments: Fasting Glucose result greater than or equal to 126 mg/dL suggests DIABETES MELLITUS per A.D.A. criteria. K 4.1 mmol/L (Normal) Range: 3.5-5.1 NA 139 mmol/L (Normal) Range: 136-145 T BILI 0.55 mg/dL (Normal) Range: 0.00-1.00 T PROT 7.4 g/dL (Normal) Range: 6.4-8.2 :27 LIPID LDL 104 mg/dL (Normal) Range: 0-130 VLDL 34 mg/dL (Normal) Range: 5-40 CHOL 186 mg/dL (Normal) Comments: <200 mg/dL Desirable 200-240 mg/dL Borderline >240 mg/dL High Risk HDL 48 mg/dL (Normal) Comments: Reference Range HDL <40 mg/dL Low HDL Cholesterol HDL >or= 60 mg/dL High HDL Cholesterol TRIG 168 mg/dL (Normal) Comments: Serum Triglycerides Reference Interval Normal <150 mg/dL Borderline high 150 - 199 mg/dL High 200 - 499 mg/dL Very High > or = 500 mg/dL :27 TSH 5.10 {uIU/mL} (Abnormal) Range: 0.34-4.82 :06 TSH 2.34 {uIU/mL} (Normal) Range: 0.34-4.82 :27 HgA1C , Office (75712) Comments: done>Wf. HgA1C , Office 6.2 % (Normal) Range: 4.6 - 7.1 :27 Blood Glucose , Office (20487) Comments: done>Wf. Blood Glucose , Office 152 (Normal) :55 CBCD BASO% 0.9 % (Normal) Range: 0-1 EO% 4.9 % (Normal) Range: 0-5 LY% 25.2 % (Normal) Range: 19-41 MONO% 5.0 % (Normal) Range: 0-10 HCT 39.2 % (Normal) Range: 37-47 HGB 13.3 g/dL (Normal) Range: 12.0-16.0 MCH 28.1 pg (Normal) Range: 27.0-32.0 MCHC 34.0 g/dL (Normal) Range: 32-36 MCV 82.9 fL (Normal) Range: 81-99 MPV 8.3 fL (Normal) Range: 6.5-12.0 NEUT% 64.0 % (Normal) Range: 47-70 PLT 334 K/mm3 (Normal) Range: 150-450 RBC 4.74 {M/mm3} (Normal) Range: 4.2-5.4 RDW 14.2 % (Normal) Range: 11.6-14.6 WBC 7.5 K/mm3 (Normal) Range: 4.4-11.0 :55 COMP METABOLIC A/G 1.2 {RATIO} (Normal) Range: 0.9-2.4 ALB 4.0 g/dL (Normal) Range: 3.4-5.0 ALK P 87 U/L (Normal) Range: 50-136 ALT 41 U/L (Normal) Range: 30-65 AST 21 U/L (Normal) Range: 15-37 BUN 17 mg/dL (Normal) Range: 7-18 BUN/CRE 17.0 {RATIO} (Normal) Range: 10-20 CA 9.6 mg/dL (Normal) Range: 8.5-10.1 CL 103 mmol/L (Normal) Range: 98-107 CO2 29.4 mmol/L (Normal) Range: 21.0-32.0 CREAT,SERUM 1.0 mg/dL (Normal) Range: 0.6-1.0 EST GFR 59 mL/min (Abnormal) EST GFR - AA 72 mL/min (Normal) Comments: ESTIMATED GLOMERULAR FILTRATION RAGE The National Kidney Foundation (NKF) guidelines forChronic kidney disease (CKD) recommends all laboratoriesestimate the level of glomerular filtration rate (GFR)in p atients from age 18 - 70 years of age.The eGFR for patient's is the eGFRmultiplied by 1.212. [facility] Laboratory uses the abbreviated Modification of Diet inRenal Disease (MDRD) study equati on to calculate the eGFR.The Estimated GFR equation is not applicable for patients<18 years of age or patients >70 years of age.The following conditions may alter the eGFR calculationresult: extre mes in body size, severe malnutrition orobesity, skeletal muscle disease, paraplegia or quadripleia,vegetarian diet, , certain drug therapy and rapidlychanging kidney function. Association of GFR and Staging of Kidney Disease*GFR (mL/min) With Kidney Disease W/O Kidney Disease>/= 90 Stage One Hkieyw71 - 89 Stage Two Suspect Decrease d GFR30 - 59 Stage Three Stage Three15 - 29 Stage Four Stage Four< 15 or Dialysis Stage Five Stage Five *Each stage assumes the assoc iated GFR level has been ieffect for at least three months.Additional studies & clinical assessments are indicated toconclude diagnosis of Chronic Kidney Disease (CKD). GAP 7 (Normal) Range: 5-15 GLOB 3.3 g/dL (Normal) Range: 2.7-4.2 GLU 112 mg/dL (Abnormal) Range: 70-110 Comments: Fasting Glucose result from 110 to <126 mg/dL suggests IMPAIRED HOMEOSTASIS per A.D.A. criteria. K 4.4 mmol/L (Normal) Range: 3.5-5.1 NA 139 mmol/L (Normal) Range: 136-145 T BILI 0.47 mg/dL (Normal) Range: 0.00-1.00 T PROT 7.3 g/dL (Normal) Range: 6.4-8.2 5-Epr-633055:55 LIPID CHOL 287 mg/dL (Abnormal) Comments: <200 mg/dL Desirable 200-240 mg/dL Borderline >240 mg/dL High Risk HDL 43 mg/dL (Normal) Comments: Reference Range HDL <40 mg/dL Low HDL Cholesterol HDL >or= 60 mg/dL High HDL Cholesterol LDL 194 mg/dL (Abnormal) Range: 0-130 TRIG 252 mg/dL (Abnormal) Comments: Serum Triglycerides Reference Interval Normal <150 mg/dL Borderline high 150 - 199 mg/dL High 200 - 499 mg/dL Very High > or = 500 mg/dL VLDL 50 mg/dL (Abnormal) Range: 40 [id number]-Zgr-[id number]:55 MICROALB:CRE UR MALB:CREAT 28.3 {mg/g_CRE} (Normal) MICROALBUMIN,UR 41.7 mg/L (Normal) UR CREAT 147.6 mg/dL (Normal) :55 TSH 5.53 {uIU/mL} (Abnormal) Range: 0.34-4.82 :25 TSH 0.16 {uIU/mL} (Abnormal) Range: 0.34-4.82 :31 HgA1C , Office (79132) Comments: done HgA1C , Office 6.5 % (Normal) Range: 4.6 - 7.1 :31 Blood Glucose , Office (01413) Comments: done Blood Glucose , Office 128 (Normal) :01 TSH 5.15 {uIU/mL} (Abnormal) Range: 0.34-4.82 :12 HgA1C , Office (28236) Comments: done HgA1C , Office 6.2 % (Normal) Range: 4.6 - 7.1 :12 Blood Glucose , Office (43007) Comments: done Blood Glucose , Office 187 (Normal) :20 FERRITIN 151 ng/mL (Normal) Range: 8-252 :20 IRON, SERUM 73 ug/dL (Normal) Range: 35-150 :20 LIPID CHOL 156 mg/dL (Normal) Comments: <200 mg/dL Desirable 200-240 mg/dL Borderline >240 mg/dL High Risk HDL 38 mg/dL (Normal) Comments: Reference Range HDL <40 mg/dL Low HDL Cholesterol HDL >or= 60 mg/dL High HDL Cholesterol LDL 90 mg/dL (Normal) Range: 0-130 TRIG 139 mg/dL (Normal) Comments: Serum Triglycerides Reference Interval Normal <150 mg/dL Borderline high 150 - 199 mg/dL High 200 - 499 mg/dL Very High > or = 500 mg/dL VLDL 28 mg/dL (Normal) Range: 5-40 :20 LIVER ALB 3.6 g/dL (Normal) Range: 3.4-5.0 ALK P 101 U/L (Normal) Range: 50-136 ALT 60 [iU]/L (Normal) Range: 30-65 AST 26 U/L (Normal) Range: 15-37 D BILI 0.12 mg/dL (Normal) Range: 0.00-0.30 T BILI 0.83 mg/dL (Normal) Range: 0.00-1.00 T PROT 6.4 g/dL (Normal) Range: 6.4-8.2 :20 TIBC 304 ug/dL (Normal) Range: 250-450 :33 Ferritin, Serum 117 ng/mL (Normal) Comments: [facility]FORMED BY: [facility] [id number] Range: 10-291 :33 Iron and TIBC Comments: PERFORMED BY: [facility] [id number] Iron Bind.Cap.(TIBC) 304 ug/dL (Normal) Range: 250-450 Iron Saturation 26 % (Normal) Range: 15-55 Iron, Serum 78 ug/dL (Normal) Range: 35-155 UIBC 226 ug/dL (Normal) Range: 150-375 : Vitamin B12 412 pg/mL (Normal) Comments: PERFORMED BY: [facility] [id number] Range: 211-911 :56 LIPID CHOL 222 mg/dL (Abnormal) Comments: <200 mg/dL Desirable 200-240 mg/dL Borderline >240 mg/dL High Risk HDL 44 mg/dL (Normal) Comments: Reference Range HDL <40 mg/dL Low HDL Cholesterol HDL >or= 60 mg/dL High HDL Cholesterol LDL 144 mg/dL (Abnormal) Range: 0-130 TRIG 170 mg/dL (Normal) Comments: Serum Triglycerides Reference Interval Normal <150 mg/dL Borderline high 150 - 199 mg/dL High 200 - 499 mg/dL Very High > or = 500 mg/dL VLDL 34 mg/dL (Normal) Range: 5-40 :56 LIVER ALB 3.8 g/dL (Normal) Range: 3.4-5.0 ALK P 87 U/L (Normal) Range: 50-136 ALT 40 [iU]/L (Normal) Range: 30-65 AST 16 U/L (Normal) Range: 15-37 D BILI 0.05 mg/dL (Normal) Range: 0.00-0.30 T BILI 0.39 mg/dL (Normal) Range: 0.00-1.00 T PROT 6.9 g/dL (Normal) Range: 6.4-8.2 :07 HgA1C , Office (55346) Comments: done HgA1C , Office 5.9 % (Normal) Range: 4.6 - 7.1 :07 Blood Glucose , Office (81896) Comments: done Blood Glucose , Office 132 (Normal) :08 B12/FOLATES FOLATES,SERUM > 24.00 ng/mL (Normal) VITAMIN B12 479 pg/mL (Normal) Range: 211-911 :08 CBCD BASO% 0.5 % (Normal) Range: 0-1 EO% 3.9 % (Normal) Range: 0-5 HCT 33.7 % (Abnormal) Range: 37-47 HGB 11.9 g/dL (Abnormal) Range: 12.0-16.0 LY% 24.7 % (Normal) Range: 19-41 MCH 29.5 pg (Normal) Range: 27.0-32.0 MCHC 35.3 g/dL (Normal) Range: 32-36 MCV 83.5 fL (Normal) Range: 81-99 MONO% 5.0 % (Normal) Range: 0-10 MPV 8.4 fL (Normal) Range: 6.5-12.0 NEUT% 65.9 % (Normal) Range: 47-70 PLT 270 K/mm3 (Normal) Range: 150-450 RBC 4.04 {M/mm3} (Abnormal) Range: 4.2-5.4 RDW 15.0 % (Abnormal) Range: 11.6-14.6 WBC 6.9 K/mm3 (Normal) Range: 4.4-11.0 :08 FERRITIN 71 ng/mL (Normal) Range: 3-244 :08 HAPTOGLOB 1628 217 mg/dL (Abnormal) Range: 34-200 Comments: Performed At: [address] [id number] :[id number] IRON+TIBC IRON SATURATION 17.9 % (Normal) Range: 15.0-55.0 IRON, SERUM 52 ug/dL (Normal) Range: 35-150 TIBC 290 ug/dL (Normal) Range: 250-450 :08 LDH 151 U/L (Normal) Range: 100-190 :08 RETIC 1.77 % (Abnormal) Range: 0.5-1.5 :08 TSH 0.87 {uIU/mL} (Normal) Range: 0.34-4.82 :33 VITAMIN B12 422 pg/mL (Normal) Range: 211-911 :56 B12/FOLATES 810 FOLATES,S 2013 21.2 ng/mL (Normal) Comments: Indeterminate: 3.4 - 5.4 Deficient: <3.4 VIT B12 1503 216 pg/mL (Normal) Range: 211-911 :56 CBCD BASO% 0.4 % (Normal) Range: 0-1 EO% 3.4 % (Normal) Range: 0-5 HCT 35.8 % (Abnormal) Range: 37-47 HGB 12.2 g/dL (Normal) Range: 12.0-16.0 LY% 21.3 % (Normal) Range: 19-41 MCH 28.1 pg (Normal) Range: 27.0-32.0 MCHC 33.9 g/dL (Normal) Range: 32-36 MCV 82.8 fL (Normal) Range: 81-99 MONO% 5.7 % (Normal) Range: 0-10 MPV 8.2 fL (Normal) Range: 6.5-12.0 NEUT% 69.2 % (Normal) Range: 47-70 PLT 263 K/mm3 (Normal) Range: 150-450 RBC 4.33 {M/mm3} (Normal) Range: 4.2-5.4 RDW 14.7 % (Abnormal) Range: 11.6-14.6 WBC 6.6 K/mm3 (Normal) Range: 4.4-11.0 :56 FERRITIN 75 ng/mL (Normal) Range: 3-244 :56 HAPTOGLOB 1628 200 mg/dL (Normal) Range: 34-200 Comments: Performed At: [address] [id number] IRON+TIBC IRON SATURATION 17.1 % (Normal) Range: 15.0-55.0 IRON, SERUM 51 ug/dL (Normal) Range: 35-150 TIBC 299 ug/dL (Normal) Range: 250-450 :56 LDH 155 U/L (Normal) Range: 100-190 :56 RETIC 1.56 % (Abnormal) Range: 0.5-1.5 :56 TSH 1.25 {uIU/mL} (Normal) Range: 0.34-4.82 :26 CBCD,SMEAR DIFF BASOPHIL 2 % (Abnormal) Range: 0-1 CELLS COUNTED 100 (Normal) HCT 33.8 % (Abnormal) Range: 37-47 HGB 11.4 g/dL (Abnormal) Range: 12.0-16.0 LYMPH 30 % (Normal) Range: 19-41 MCH 27.9 pg (Normal) Range: 27.0-32.0 MCHC 33.9 g/dL (Normal) Range: 32-36 MCV 82.4 fL (Normal) Range: 81-99 MONOCYTE 1 % (Normal) Range: 0-10 PLT 233 K/mm3 (Normal) Range: 150-450 PLT EST SeeNote (Normal) Comments: Result: ADEQUATE RBC 4.09 {M/mm3} (Abnormal) Range: 4.2-5.4 RDW 14.7 % (Abnormal) Range: 11.6-14.6 RED CELL MORPH SeeNote {NORMAL} (Normal) Comments: Result: NORM C&C SEGS 67 % (Normal) Range: 47-70 WBC 6.4 K/mm3 (Normal) Range: 4.4-11.0 :26 COMP METABOLIC A/G 1.3 {RATIO} (Normal) Range: 0.9-2.4 ALB 3.6 g/dL (Normal) Range: 3.4-5.0 ALK P 90 U/L (Normal) Range: 50-136 ALT 34 [iU]/L (Normal) Range: 30-65 AST 14 U/L (Abnormal) Range: 15-37 BUN 13 mg/dL (Normal) Range: 7-18 BUN/CRE 16.3 {RATIO} (Normal) Range: 10-20 CA 8.6 mg/dL (Normal) Range: 8.5-10.1 CL 106 mmol/L (Normal) Range: 98-107 CO2 27.9 mmol/L (Normal) Range: 22.0-29.0 CREAT,SERUM 0.8 mg/dL (Normal) Range: 0.6-1.0 GAP 6 (Normal) Range: 5-15 GLOB 2.8 g/dL (Normal) Range: 2.3-3.5 GLU 117 mg/dL (Abnormal) Range: 70-110 Comments: Fasting Glucose result from 110 to <126 mg/dL suggests IMPAIRED HOMEOSTASIS per A.D.A. criteria. K 3.9 mmol/L (Normal) Range: 3.5-5.1 NA 140 mmol/L (Normal) Range: 136-145 T BILI 0.49 mg/dL (Normal) Range: 0.00-1.00 T PROT 6.4 g/dL (Normal) Range: 6.4-8.2 :26 LIPID CHOL 144 mg/dL (Normal) Comments: <200 mg/dL Desirable 200-240 mg/dL Borderline >240 mg/dL High Risk HDL 37 mg/dL (Normal) Comments: Reference Range HDL <40 mg/dL Low HDL Cholesterol HDL >or= 60 mg/dL High HDL Cholesterol LDL 76 mg/dL (Normal) Range: 0-130 TRIG 155 mg/dL (Normal) Comments: Serum Triglycerides Reference Interval Normal <150 mg/dL Borderline high 150 - 199 mg/dL High 200 - 499 mg/dL Very High > or = 500 mg/dL VLDL 31 mg/dL (Normal) Range: 5-40 :26 ROUTINE UA BILIRUBIN URINE SeeNote (Normal) Comments: Result: NEGATIVE CLARITY CLEAR (Normal) COLOR YELLOW (Normal) GLUCOSE, UR SeeNote (Normal) Comments: Result: NEGATIVE KETONE UR SeeNote mg/dL (Normal) Comments: Result: NEGATIVE LEUK ESTERASE 2+ (Abnormal) NITRITE UR SeeNote (Normal) Comments: Result: NEGATIVE OCCULT BLOOD-UR SeeNote (Normal) Comments: Result: NEGATIVE pH UR 6.0 (Normal) Range: 5.0-8.0 PROT DIPSTX SeeNote (Normal) Comments: Result: NEGATIVE SP.GR. DIPSTX 1.025 (Normal) Range: 1.002-1.030 UROBILI 0.2 EU/dl (Normal) Range: 0.2 - 1.0 :05 BMP Comments: Precautions*: NOT APPLICABLE BUN 9 mg/dL (Normal) Range: 7-18 BUN/CRE 11.3 {RATIO} (Normal) Range: 10-20 CA 8.1 mg/dL (Abnormal) Range: 8.5-10.1 CL 110 mmol/L (Abnormal) Range: 98-107 CO2 25.3 mmol/L (Normal) Range: 22.0-29.0 CREAT,SERUM 0.8 mg/dL (Normal) Range: 0.6-1.0 GAP 9 (Normal) Range: 5-15 GLU 83 mg/dL (Normal) Range: 70-110 K 3.5 mmol/L (Normal) Range: 3.5-5.1 NA 144 mmol/L (Normal) Range: 136-145 :05 CBC Comments: Precautions*: NOT APPLICABLE HCT 31.1 % (Abnormal) Range: 37-47 HGB 10.5 g/dL (Abnormal) Range: 12.0-16.0 MCH 28.3 pg (Normal) Range: 27.0-32.0 MCHC 33.8 g/dL (Normal) Range: 32-36 MCV 83.8 fL (Normal) Range: 81-99 PLT 262 K/mm3 (Normal) Range: 150-450 RBC 3.71 {M/mm3} (Abnormal) Range: 4.2-5.4 RDW 15.4 % (Abnormal) Range: 11.6-14.6 WBC 7.2 K/mm3 (Normal) Range: 4.4-11.0 : MG 1.8 mg/dL (Normal) Comments: Precautions*: NOT APPLICABLE Range: 1.5-2.2 : PHOS 3.0 mg/dL (Normal) Comments: Precautions*: NOT APPLICABLE Range: 2.5-4.9 :05 PRO TIME Comments: Precautions*: NOT APPLICABLE INR 1.0 (Normal) PROTIME 13.0 s (Normal) Range: 11.7-13.3 : PTT 34.2 s (Normal) Comments: Precautions*: NOT APPLICABLE Range: 24.6-36.6 :15 CPK TOTAL 71 U/L (Normal) Comments: Precautions*: NOT APPLICABLEINDICATE CK '1', '2', '3', OR 'R' FOR RANDOM: 3 Range: 21-:15 CPKMB 0.5 ng/mL (Normal) Comments: Precautions*: NOT APPLICABLEINDICATE CK '1', '2', '3', OR 'R' FOR RANDOM: 3 Range: 0.0-5.0 Comments: CK-MB and RI Interpretation MB Relative Index Non-AMI <or= 5 NA Indeterminate > 5 <or= 4 AMI > 5 > 4 :15 TROPONIN-I < 0.04 ng/mL (Normal) Comments: Precautions*: NOT APPLICABLEINDICATE CK '1', '2', '3', OR 'R' FOR RANDOM: 3 Comments: TROPONIN-I EXPECTED VALUES < 0.50 NEGATIVE 0.50 - 1.49 INDETERMINANT > OR = 1.50 SUGGEST [place] :05 CPK TOTAL 149 U/L (Normal) Comments: Precautions*: NOT APPLICABLEINDICATE CK '1', '2', '3', OR 'R' FOR RANDOM: 2 Range: 215 :05 CPKMB 1.1 ng/mL (Normal) Comments: Precautions*: NOT APPLICABLEINDICATE CK '1', '2', '3', OR 'R' FOR RANDOM: 2 Range: 0.0-5.0 Comments: CK-MB and RI Interpretation MB Relative Index Non-AMI <or= 5 NA Indeterminate > 5 <or= 4 AMI > 5 > 4 [id number] TROPONIN-I < 0.04 ng/mL (Normal) Comments: Precautions*: NOT APPLICABLEINDICATE CK '1', '2', '3', OR 'R' FOR RANDOM: 2 Comments: TROPONIN-I EXPECTED VALUES < 0.50 NEGATIVE 0.50 - 1.49 INDETERMINANT > OR = 1.50 SUGGEST [place] :15 PRO TIME Comments: Precautions*: NOT APPLICABLE INR 1.0 (Normal) PROTIME 12.6 s (Normal) Range: 11.7-13.3 :15 TROPONIN-I < 0.04 ng/mL (Normal) Comments: Precautions*: NOT APPLICABLE Comments: TROPONIN-I EXPECTED VALUES < 0.50 NEGATIVE 0.50 - 1.49 INDETERMINANT > OR = 1.50 SUGGEST [place] :00 BMP Comments: COMMENTS: FEARONPrecautions*: NOT APPLICABLEINDICATE CK '1', '2', '3', OR 'R' FOR RANDOM: 1 CL 106 mmol/L (Normal) Range: 98-107 CO2 21.4 mmol/L (Abnormal) Range: 22.0-29.0 GAP 12 (Normal) Range: 5-15 K 3.9 mmol/L (Normal) Range: 3.5-5.1 BUN 12 mg/dL (Normal) Range: 7-18 BUN/CRE 15.0 {RATIO} (Normal) Range: 10-20 CA 8.8 mg/dL (Normal) Range: 8.5-10.1 CREAT,SERUM 0.8 mg/dL (Normal) Range: 0.6-1.0 GLU 117 mg/dL (Abnormal) Range: 70-110 Comments: Fasting Glucose result from 110 to <126 mg/dL suggests IMPAIRED HOMEOSTASIS per A.D.A. criteria. NA 139 mmol/L (Normal) Range: 136-145 :00 CBCD Comments: COMMENTS: FEARONPrecautions*: NOT APPLICABLE BASO% 0.5 % (Normal) Range: 0-1 EO% 3.7 % (Normal) Range: 0-5 HCT 35.0 % (Abnormal) Range: 37-47 HGB 11.9 g/dL (Abnormal) Range: 12.0-16.0 LY% 15.6 % (Abnormal) Range: 19-41 MCH 28.5 pg (Normal) Range: 27.0-32.0 MCHC 34.0 g/dL (Normal) Range: 32-36 MCV 83.7 fL (Normal) Range: 81-99 MONO% 6.2 % (Normal) Range: 0-10 MPV 8.2 fL (Normal) Range: 6.5-12.0 NEUT% 74.0 % (Abnormal) Range: 47-70 PLT 290 K/mm3 (Normal) Range: 150-450 RBC 4.18 {M/mm3} (Abnormal) Range: 4.2-5.4 RDW 15.2 % (Abnormal) Range: 11.6-14.6 WBC 8.1 K/mm3 (Normal) Range: 4.4-11.0 :00 CPK TOTAL 88 U/L (Normal) Comments: COMMENTS: FEARONPrecautions*: NOT APPLICABLEINDICATE CK '1', '2', '3', OR 'R' FOR RANDOM: 1 Range: 21-215 :00 CPKMB 1.0 ng/mL (Normal) Comments: COMMENTS: FEARONPrecautions*: NOT APPLICABLEINDICATE CK '1', '2', '3', OR 'R' FOR RANDOM: 1 Range: 0.0-5.0 Comments: CK-MB and RI Interpretation MB Relative Index Non-AMI <or= 5 NA Indeterminate > 5 <or= 4 AMI > 5 > 4 :00 PTT 31.2 s (Normal) Comments: COMMENTS: FEARONPrecautions*: NOT APPLICABLE Range: 24.6-36.6 :00 TROPONIN-I < 0.04 ng/mL (Normal) Comments: COMMENTS: FEARONPrecautions*: NOT APPLICABLEINDICATE CK '1', '2', '3', OR 'R' FOR RANDOM: 1 Comments: TROPONIN-I EXPECTED VALUES < 0.50 NEGATIVE 0.50 - 1.49 INDETERMINANT > OR = 1.50 SUGGEST [place] :48 HgA1C , Office ([id number]) HgA1C , Office 6.4 % (Normal) Range: 4.6 - 7.1 :48 Blood Glucose , Office ([id number]) Blood Glucose , Office 113 (Normal) Plan of Care Name Dates Details Instructions Bronchitis : Acute Bronchitis: Brief Version *: bronchitis Indication: Bronchitis Cough : Follow up if no improvement or if symptoms worsen Indication: Cough BMI 36.0-36.9,adult : Eprescribed prescriptions (G8553) Indication: BMI 36.0-36.9,adult Nonsmoker : Follow up in 1-2 week Indication: Nonsmoker Fatty liver : Continue Current Prescription(s) Indication: Fatty liver Fatty liver : Diet, Exercise, and Wt loss Indication: Fatty liver Elevated liver enzymes : Reviewed Lab Indication: Elevated liver enzymes Nonsmoker : Eprescribed prescriptions (G8553) Indication: Nonsmoker Elevated liver enzymes : Reviewed Lab Indication: Elevated liver enzymes Double vision : Reviewed Lab Indication: Double vision Double vision : Reviewed Diagnostic Tests Indication: Double vision Double vision : Reviewed Veneer [employer] Operator Letter Indication: Double vision Fatty liver : Diet, Exercise, and Wt loss Indication: Fatty liver Elevated liver enzymes : Reviewed Diagnostic Tests Indication: Elevated liver enzymes Elevated liver enzymes : Reviewed Lab Indication: Elevated liver enzymes BMI 36.0-36.9,adult : Follow up in 3 week- to rev liver us and lab Indication: BMI 36.0-36.9,adult BMI 36.0-36.9,adult : Eprescribed prescriptions (G8553) Indication: BMI 36.0-36.9,adult Right hip pain : Reviewed V[employer] Operator Letter Indication: Right hip pain Right hip pain : Follow up if no improvement or if symptoms worsen Indication: Right hip pain BMI 36.0-36.9,adult : Eprescribed prescriptions (G8553) Indication: BMI 36.0-36.9,adult Exhaustion : Follow up in 2-3 weeks Indication: Exhaustion Depressed mood : Continue Current Prescription(s) Indication: Depressed mood Abnormal lung sounds : Continue Current Prescription(s) Indication: Abnormal lung sounds Abnormal lung sounds : Reviewed Diagnostic Tests Indication: Abnormal lung sounds Bronchitis : Continue Current Prescription(s) Indication: Bronchitis Depressed mood : Continue Current Prescription(s) Indication: Depressed mood Cough : Continue Current Prescription(s) Indication: Cough Uncontrolled type II diabetes mellitus : Follow up in 3 months Indication: Uncontrolled type II diabetes mellitus Encounter for annual general medical examination with abnormal findings in adult : fall reduction handout Indication: Encounter for annual general medical examination with abnormal findings in adult Encounter for annual general medical examination with abnormal findings in adult : elderly packet given Indication: Encounter for annual general medical examination with abnormal findings in adult Encounter for annual general medical examination with abnormal findings in adult : advance planning information Indication: Encounter for annual general medical examination with abnormal findings in adult Encounter for annual general medical examination with abnormal findings in adult : *Weight Loss Discussion Indication: Encounter for annual general medical examination with abnormal findings in adult Encounter for screening for malignant neoplasm of colon (Renamed from Special screening for malignant neoplasms, colon) : *Colon Cancer Screening Indication: Encounter for screening for malignant neoplasm of colon (Renamed from Special screening for malignant neoplasms, colon) MGUS (monoclonal gammopathy of unknown significance) : Reviewed V[employer] Operator Letter- stable and discharged from onc Indication: MGUS (monoclonal gammopathy of unknown significance) Acquired hypothyroidism : Continue Current Prescription(s) Indication: Acquired hypothyroidism Benign essential hypertension (Renamed from Benign essential HTN) : HTN/CAD Red Flags Indication: Benign essential hypertension (Renamed from Benign essential HTN) Mixed hyperlipidemia : Cholesterol mgmt Indication: Mixed hyperlipidemia Hypertensive urgency : Continue Current Prescription(s) Indication: Hypertensive urgency Fall down steps, initial encounter : Reviewed V[employer] Operator Letter Indication: Fall down steps, initial encounter Fall down steps, initial encounter : Reviewed Diagnostic Tests Indication: Fall down steps, initial encounter Benign essential hypertension (Renamed from Benign essential HTN) : Continue Current Prescription(s) Indication: Benign essential hypertension (Renamed from Benign essential HTN) Other and unspecified hyperlipidemia : Cholesterol mgmt Indication: Other and unspecified hyperlipidemia Acquired hypothyroidism : Continue Current Prescription(s) Indication: Acquired hypothyroidism Benign essential hypertension (Renamed from Benign essential HTN) : Diet, Exercise, and Wt loss Indication: Benign essential hypertension (Renamed from Benign essential HTN) Benign essential hypertension (Renamed from Benign essential HTN) : HTN/CAD Red Flags Indication: Benign essential hypertension (Renamed from Benign essential HTN) Diabetes mellitus type 2, controlled : Follow up in 3 months Indication: Diabetes mellitus type 2, controlled Diabetes mellitus type 2, controlled : *Diabetes Education Indication: Diabetes mellitus type 2, controlled Vitamin B 12 deficiency : Eprescribed prescriptions (G8553) Indication: Vitamin B 12 deficiency Benign essential hypertension (Renamed from Benign essential HTN) : Continue Current Prescription(s) Indication: Benign essential hypertension (Renamed from Benign essential HTN) Benign essential hypertension (Renamed from Benign essential HTN) : Follow up in 2 weeks Indication: Benign essential hypertension (Renamed from Benign essential HTN) Benign essential hypertension (Renamed from Benign essential HTN) : BP MONITORING - SELF Indication: Benign essential hypertension (Renamed from Benign essential HTN) Aortic stenosis, mild : Reviewed Diagnostic Tests Indication: Aortic stenosis, mild Uncontrolled type II diabetes mellitus : Follow up in 3 months Indication: Uncontrolled type II diabetes mellitus Benign essential hypertension (Renamed from Benign essential HTN) : Diet, Exercise, and Wt loss Indication: Benign essential hypertension (Renamed from Benign essential HTN) Benign essential hypertension (Renamed from Benign essential HTN) : HTN/CAD Red Flags Indication: Benign essential hypertension (Renamed from Benign essential HTN) Acquired hypothyroidism : Continue Current Prescription(s) Indication: Acquired hypothyroidism Acquired hypothyroidism : Reviewed Lab Indication: Acquired hypothyroidism Fatty liver : Diet, Exercise, and Wt loss Indication: Fatty liver Other and unspecified hyperlipidemia : Cholesterol mgmt Indication: Other and unspecified hyperlipidemia Uncontrolled type II diabetes mellitus : *Diabetes Education Indication: Uncontrolled type II diabetes mellitus Nonsmoker : Eprescribed prescriptions (G8553) Indication: Nonsmoker Bronchitis : Continue Current Prescription(s) Indication: Bronchitis Abnormal lung sounds : *Antibiotic Usage Education - Female Indication: Abnormal lung sounds Abnormal lung sounds : Solu Medrol Injection/ Education Indication: Abnormal lung sounds Cough : Follow up in 2 days Indication: Cough Abnormal lung sounds : *Antibiotic Usage Education - Female Indication: Abnormal lung sounds Abnormal lung sounds : Solu Medrol Injection/ Education Indication: Abnormal lung sounds Nonsmoker : Eprescribed prescriptions (G8553) Indication: Nonsmoker Uncontrolled type II diabetes mellitus : Follow up in 6 weeks Indication: Uncontrolled type II diabetes mellitus Abnormal lung sounds : Eprescribed prescriptions (G8553) Indication: Abnormal lung sounds Abnormal lung sounds : Solu Medrol Injection/ Education Indication: Abnormal lung sounds Skin lesion : Skin Infection - Signs and Symptoms Indication: Skin lesion Skin lesion : Shave Biopsy without Epi Indication: Skin lesion Benign essential hypertension (Renamed from Benign essential HTN) : Continue Current Prescription(s) Indication: Benign essential hypertension (Renamed from Benign essential HTN) Uncontrolled type II diabetes mellitus : Continue Current Prescription(s) Indication: Uncontrolled type II diabetes mellitus Uncontrolled type II diabetes mellitus : Follow up in 2 weeks- ck on wt loss plan and lifestyle chg and mood and lab result Indication: Uncontrolled type II diabetes mellitus Depression, unspecified depression type : Continue Current Prescription(s) Indication: Depression, unspecified depression type Aortic stenosis, mild : Reviewed Diagnostic Tests Indication: Aortic stenosis, mild Uncontrolled type II diabetes mellitus : Follow up in 3 months Indication: Uncontrolled type II diabetes mellitus Benign essential hypertension (Renamed from Benign essential HTN) : Diet, Exercise, and Wt loss Indication: Benign essential hypertension (Renamed from Benign essential HTN) Benign essential hypertension (Renamed from Benign essential HTN) : HTN/CAD Red Flags Indication: Benign essential hypertension (Renamed from Benign essential HTN) Other malaise and fatigue : Reviewed Lab Indication: Other malaise and fatigue Uncontrolled type II diabetes mellitus : Eprescribed prescriptions (G8553) Indication: Uncontrolled type II diabetes mellitus Uncontrolled type II diabetes mellitus : Diabetes and Exercise: Preventing Low Blood Sugar: blood sugar Indication: Uncontrolled type II diabetes mellitus Annual Medicare Phyiscal WITHOUT abnormal findings (Renamed from Encounter for general adult medical examination without abnormal findings) : fall reduction handout Indication: Annual Medicare Phyiscal WITHOUT abnormal findings (Renamed from Encounter for general adult medical examination without abnormal findings) Annual Medicare Phyiscal WITHOUT abnormal findings (Renamed from Encounter for general adult medical examination without abnormal findings) : elderly packet given Indication: Annual Medicare Phyiscal WITHOUT abnormal findings (Renamed from Encounter for general adult medical examination without abnormal findings) Annual Medicare Phyiscal WITHOUT abnormal findings (Renamed from Encounter for general adult medical examination without abnormal findings) : advance planning information Indication: Annual Medicare Phyiscal WITHOUT abnormal findings (Renamed from Encounter for general adult medical examination without abnormal findings) Annual Medicare Phyiscal WITHOUT abnormal findings (Renamed from Encounter for general adult medical examination without abnormal findings) : Self breast exam Indication: Annual Medicare Phyiscal WITHOUT abnormal findings (Renamed from Encounter for general adult medical examination without abnormal findings) Encounter for screening for malignant neoplasm of colon (Renamed from Special screening for malignant neoplasms, colon) : *Colon Cancer Screening Indication: Encounter for screening for malignant neoplasm of colon (Renamed from Special screening for malignant neoplasms, colon) Other anxiety states : Follow up in 1 month Indication: Other anxiety states Other anxiety states : Follow up in 1 month Indication: Other anxiety states Other anxiety states : Continue Current Prescription(s) Indication: Other anxiety states Chronic fatigue : Reviewed Lab Indication: Chronic fatigue Other anxiety states : Eprescribed prescriptions (G8553) Indication: Other anxiety states Uncontrolled type II diabetes mellitus : Diet, Exercise, and Wt loss Indication: Uncontrolled type II diabetes mellitus Uncontrolled type II diabetes mellitus : Eprescribed prescriptions (G8553) Indication: Uncontrolled type II diabetes mellitus Chronic cough : Eprescribed prescriptions (G8553) Indication: Chronic cough Diabetes mellitus type 2, controlled : Eprescribed prescriptions (G8553) Indication: Diabetes mellitus type 2, controlled Upper Respiratory Infection : Eprescribed prescriptions (G8553) Indication: Upper Respiratory Infection Bronchitis : Eprescribed prescriptions (G8553) Indication: Bronchitis Bronchitis : *URI Treatment Indication: Bronchitis Bronchitis : *Antibiotic Usage Education - Female Indication: Bronchitis Bronchitis : Acute Bronchitis: Brief Version *: acute bronchitis Indication: Bronchitis Acute bronchitis : Eprescribed prescriptions (G8553) Indication: Acute bronchitis Mixed hyperlipidemia : Eprescribed prescriptions (G8553) Indication: Mixed hyperlipidemia Other and unspecified hyperlipidemia : *Cholesterol - Medication Side Effects Indication: Other and unspecified hyperlipidemia Diabetes mellitus type 2, controlled : Eprescribed prescriptions (G8553) Indication: Diabetes mellitus type 2, controlled Diabetes mellitus type 2, controlled : Diet, Exercise, and Wt loss Indication: Diabetes mellitus type 2, controlled Diabetes mellitus type 2, controlled : Eprescribed prescriptions (G8553) Indication: Diabetes mellitus type 2, controlled Viral infection : *URI Treatment Indication: Viral infection Viral infection : *URI Symptoms Indication: Viral infection Viral infection : Eprescribed prescriptions (G8553) Indication: Viral infection Wheezing (Renamed from Asthmatic breathing) : Eprescribed prescriptions (G8553) Indication: Wheezing (Renamed from Asthmatic breathing) Chronic cough : Follow up if no improvement or if symptoms worsen Indication: Chronic cough Mixed hyperlipidemia : Diet, Exercise, and Wt loss Indication: Mixed hyperlipidemia Encounter for Medicare annual wellness exam : Eprescribed prescriptions (G8553) Indication: Encounter for Medicare annual wellness exam Neoplasm of uncertain behavior of skin : Shave Biopsy with Epi Indication: Neoplasm of uncertain behavior of skin Neoplasm of uncertain behavior of skin : Eprescribed prescriptions (G8553) Indication: Neoplasm of uncertain behavior of skin Diabetes mellitus type 2, controlled : Diabetes and Exercise: Preventing Low Blood Sugar: blood sugar Indication: Diabetes mellitus type 2, controlled Diabetes mellitus type 2, controlled : Eprescribed prescriptions (G8553) Indication: Diabetes mellitus type 2, controlled Encounter for Medicare annual wellness exam : fall reduction handout Indication: Encounter for Medicare annual wellness exam Encounter for Medicare annual wellness exam : elderly packet given Indication: Encounter for Medicare annual wellness exam Encounter for Medicare annual wellness exam : Diabetes and Exercise: Preventing Low Blood Sugar: blood sugar Indication: Encounter for Medicare annual wellness exam Diabetes mellitus type 2, controlled : Diet, Exercise, and Wt loss Indication: Diabetes mellitus type 2, controlled HYPERTENSION, NOS : Diet, Exercise, and Wt loss Indication: HYPERTENSION, NOS Need for prophylactic vaccination and inoculation against influenza : Flu (Influenza) *: flu Indication: Need for prophylactic vaccination and inoculation against influenza Need for prophylactic vaccination and inoculation against influenza : Flu (Influenza) *: flu shot Indication: Need for prophylactic vaccination and inoculation against influenza Diabetes mellitus type 2, controlled : Diet, Exercise, and Wt loss Indication: Diabetes mellitus type 2, controlled Diabetes mellitus type 2, controlled : Diet, Exercise, and Wt loss Indication: Diabetes mellitus type 2, controlled Bronchitis : *Antibiotic Usage Education - Female Indication: Bronchitis Bronchitis : *URI Symptoms Indication: Bronchitis Sore throat : Sore Throat *: acute pharyngitis Indication: Sore throat Benign essential hypertension (Renamed from Benign essential HTN) : High Blood Pressure (Essential Hypertension) *: blood pressure problems Indication: Benign essential hypertension (Renamed from Benign essential HTN) Other malaise and fatigue : Fatigue: fatigue Indication: Other malaise and fatigue Limb pain : Reviewed Lab Indication: Limb pain Limb pain : Follow up in 1 week Indication: Limb pain Limb pain : Reviewed Lab Indication: Limb pain History of poliomyelitis (Renamed from H/O acute poliomyelitis) : Reviewed Lab Indication: History of poliomyelitis (Renamed from H/O acute poliomyelitis) Benign essential hypertension (Renamed from Benign essential HTN) : Continue Current Prescription(s) Indication: Benign essential hypertension (Renamed from Benign essential HTN) Diabetes mellitus type 2, controlled : Diabetes and Illness: diabetes and illness Indication: Diabetes mellitus type 2, controlled Acquired hypothyroidism : Continue Current Prescription(s) Indication: Acquired hypothyroidism Diabetes mellitus type 2, controlled : Continue Current Prescription(s) Indication: Diabetes mellitus type 2, controlled Benign essential hypertension (Renamed from Benign essential HTN) : Continue Current Prescription(s) Indication: Benign essential hypertension (Renamed from Benign essential HTN) Cerebral infarction, unspecified : Continue Current Prescription(s) Indication: Cerebral infarction, unspecified Cerebral infarction, unspecified : Reviewed V[employer] Operator Letter Indication: Cerebral infarction, unspecified Upper respiratory infection (Renamed from Infection of the upper respiratory tract) : *Antibiotic Usage Education - Female Indication: Upper respiratory infection (Renamed from Infection of the upper respiratory tract) Upper respiratory infection (Renamed from Infection of the upper respiratory tract) : Cough: cold Indication: Upper respiratory infection (Renamed from Infection of the upper respiratory tract) Uncontrolled type II diabetes mellitus : Follow up in 3 months Indication: Uncontrolled type II diabetes mellitus Uncontrolled type II diabetes mellitus : Blood Glucose Test: diabetes Indication: Uncontrolled type II diabetes mellitus Need for prophylactic vaccination and inoculation against influenza : Flu (Influenza) *: flu shot Indication: Need for prophylactic vaccination and inoculation against influenza Diabetes mellitus type 2, controlled : Diabetes and Illness: blood sugar Indication: Diabetes mellitus type 2, controlled Inflamed skin tag : Skin Infection - Signs and Symptoms Indication: Inflamed skin tag Inflamed skin tag : Skin Tags Indication: Inflamed skin tag Uncontrolled type II diabetes mellitus : Diet, Exercise, and Wt loss Indication: Uncontrolled type II diabetes mellitus Other and unspecified hyperlipidemia : Diet, Exercise, and Wt loss Indication: Other and unspecified hyperlipidemia Screening for malignant neoplasm of cervix : SELF BREAST EXAM Indication: Screening for malignant neoplasm of cervix Screening for malignant neoplasm of cervix : *Well Female Maintenance (KF) Indication: Screening for malignant neoplasm of cervix Diarrhea (Renamed from D (diarrhea)) : *Abd Pain Red Flags Indication: Diarrhea (Renamed from D (diarrhea)) Diarrhea (Renamed from D (diarrhea)) : Diarrhea Education Indication: Diarrhea (Renamed from D (diarrhea)) Other and unspecified hyperlipidemia : Diet, Exercise, and Wt loss Indication: Other and unspecified hyperlipidemia Other and unspecified hyperlipidemia : Diet and Exercise Indication: Other and unspecified hyperlipidemia PARONYCHIA : Antibiotic Usage Education - Female Indication: PARONYCHIA Benign essential hypertension (Renamed from Benign essential HTN) : HTN and Decongestants Indication: Benign essential hypertension (Renamed from Benign essential HTN) Acute sinusitis, unspecified : *URI Treatment Indication: Acute sinusitis, unspecified Acute sinusitis, unspecified : URI Symptoms Indication: Acute sinusitis, unspecified Acute sinusitis, unspecified : Antibiotic Usage Education - Female Indication: Acute sinusitis, unspecified Abnormal lung sounds : MDI Education Indication: Abnormal lung sounds Bronchitis : *URI Treatment Indication: Bronchitis Bronchitis : Antibiotic Usage Education - Female Indication: Bronchitis Bronchitis : URI Symptoms Indication: Bronchitis GERD (gastroesophageal reflux disease) : GERD Education Indication: GERD (gastroesophageal reflux disease) Mixed hyperlipidemia : CHOLESTEROL MGMT. Indication: Mixed hyperlipidemia Mixed hyperlipidemia : Cholesterol - Nonprescription Treatment Indication: Mixed hyperlipidemia Mixed hyperlipidemia : Cholesterol - Medication Side Effects Indication: Mixed hyperlipidemia HYPERTENSION, NOS : Diet, Exercise, and Wt loss Indication: HYPERTENSION, NOS HYPERTENSION, NOS : HTN/CAD Red Flags Indication: HYPERTENSION, NOS Abnormal glucose tolerance test : Diet, Exercise, and Wt loss Indication: Abnormal glucose tolerance test Abnormal glucose tolerance test : *Diabetes Education Indication: Abnormal glucose tolerance test Benign essential hypertension (Renamed from Benign essential HTN) : FOLLOW UP IN 4 MONTHS Indication: Benign essential hypertension (Renamed from Benign essential HTN) Benign essential hypertension (Renamed from Benign essential HTN) : Diet, Exercise, and Wt loss Indication: Benign essential hypertension (Renamed from Benign essential HTN) Benign essential hypertension (Renamed from Benign essential HTN) : HTN/CAD Red Flags Indication: Benign essential hypertension (Renamed from Benign essential HTN) Benign essential hypertension (Renamed from Benign essential HTN) : FOLLOW UP IN 1 MONTH AND CHECK WT Indication: Benign essential hypertension (Renamed from Benign essential HTN) Benign essential hypertension (Renamed from Benign essential HTN) : Diet, Exercise, and Wt loss Indication: Benign essential hypertension (Renamed from Benign essential HTN) Depressed mood : Continue Current Prescription(s) Indication: Depressed mood Abnormal glucose tolerance test : *Diabetes Education Indication: Abnormal glucose tolerance test Benign essential hypertension (Renamed from Benign essential HTN) : HTN/CAD Red Flags Indication: Benign essential hypertension (Renamed from Benign essential HTN) Mixed hyperlipidemia : CHOLESTEROL MGMT. Indication: Mixed hyperlipidemia Mixed hyperlipidemia : Cholesterol - Medication Side Effects Indication: Mixed hyperlipidemia Mixed hyperlipidemia : Cholesterol - Nonprescription Treatment Indication: Mixed hyperlipidemia Actinic keratosis (Renamed from Actinic keratoses) : Skin Biopsy Home Instructions Indication: Actinic keratosis (Renamed from Actinic keratoses) Actinic keratosis (Renamed from Actinic keratoses) : Skin Infection - Signs and Symptoms Indication: Actinic keratosis (Renamed from Actinic keratoses) Actinic keratosis (Renamed from Actinic keratoses) : Shave Biopsy with Epi-- tolerated well -- 4mm in size Indication: Actinic keratosis (Renamed from Actinic keratoses) Actinic keratosis (Renamed from Actinic keratoses) : Cryotherapy Indication: Actinic keratosis (Renamed from Actinic keratoses) Benign essential hypertension (Renamed from Benign essential HTN) : Diet, Exercise, and Wt loss Indication: Benign essential hypertension (Renamed from Benign essential HTN) Benign essential hypertension (Renamed from Benign essential HTN) : HTN/CAD Red Flags Indication: Benign essential hypertension (Renamed from Benign essential HTN) Other malaise and fatigue : Reviewed Lab Indication: Other malaise and fatigue Acquired hypothyroidism : Continue Current Prescription(s) Indication: Acquired hypothyroidism GERD (gastroesophageal reflux disease) : GERD Education Indication: GERD (gastroesophageal reflux disease) Abnormal glucose tolerance test : Diet, Exercise, and Wt loss Indication: Abnormal glucose tolerance test Abnormal glucose tolerance test : *Diabetes Education Indication: Abnormal glucose tolerance test Mixed hyperlipidemia : Cholesterol - Nonprescription Treatment Indication: Mixed hyperlipidemia Mixed hyperlipidemia : CHOLESTEROL MGMT. Indication: Mixed hyperlipidemia Mixed hyperlipidemia : Cholesterol - Medication Side Effects Indication: Mixed hyperlipidemia Other vitamin B12 deficiency anemia : Reviewed Lab Indication: Other vitamin B12 deficiency anemia Acute sinusitis, unspecified : *URI Treatment Indication: Acute sinusitis, unspecified Acute sinusitis, unspecified : URI Symptoms Indication: Acute sinusitis, unspecified Acute sinusitis, unspecified : Antibiotic Usage Education - Female Indication: Acute sinusitis, unspecified Mixed hyperlipidemia : CHOLESTEROL MGMT. Indication: Mixed hyperlipidemia Mixed hyperlipidemia : Cholesterol - Medication Side Effects Indication: Mixed hyperlipidemia Mixed hyperlipidemia : Cholesterol - Nonprescription Treatment Indication: Mixed hyperlipidemia HYPERTENSION, NOS : Diet, Exercise, and Wt loss Indication: HYPERTENSION, NOS HYPERTENSION, NOS : HTN/CAD Red Flags Indication: HYPERTENSION, NOS Mixed hyperlipidemia : Cholesterol - Nonprescription Treatment Indication: Mixed hyperlipidemia Mixed hyperlipidemia : CHOLESTEROL MGMT. Indication: Mixed hyperlipidemia Mixed hyperlipidemia : Cholesterol - Medication Side Effects Indication: Mixed hyperlipidemia HYPERTENSION, NOS : Reviewed Lab Indication: HYPERTENSION, NOS Other vitamin B12 deficiency anemia : Reviewed Lab Indication: Other vitamin B12 deficiency anemia Gastric reflux : GERD Education Indication: Gastric reflux Acquired hypothyroidism : Continue Current Prescription(s) Indication: Acquired hypothyroidism Finger : FOLLOW UP NEEDED Indication: Finger Skin lesion : FOLLOW UP NEEDED Indication: Skin lesion Skin lesion : SILVER NITRATE Indication: Skin lesion Multiple Sites : FOLLOW UP NEEDED Indication: Multiple Sites Other vitamin B12 deficiency anemia : Reviewed Lab Indication: Other vitamin B12 deficiency anemia HYPERTENSION, NOS : HTN/CAD Red Flags Indication: HYPERTENSION, NOS Planned Observations CBC, PLATELETS & AUT DIFF ([id number])Indication: Other vitamin B12 deficiency anemia On: :17 Request TSH ([id number])Indication: Abnormal TSH On: :38 Request T4, FREE (THYROXINE) ([id number])Indication: Abnormal TSH On: :38 Request T3, FREE (TRIDOTHYRONINE) ([id number])Indication: Abnormal TSH On: :38 Request ANTI-LIVER/KIDNEY MICROSOMAL ANTIBODY ([id number])Indication: Elevated liver enzymes On: 12-Gzg-622931:34 Request TSH ([id number])Indication: Abnormal TSH On: :31 Request T4, FREE (THYROXINE) ([id number])Indication: Abnormal TSH On: :31 Request T3, FREE (TRIDOTHYRONINE) ([id number])Indication: Abnormal TSH On: 59-Rst-040256:31 Request BETA-2 MICROGLOBULIN ([id number])Indication: Abnormal blood chemistry On: 49-Eas-577191:08 Request Urinalysis, Office ([id number])Indication: Urinary frequency On: 76-Zxn-474229:38 Request CBC WITH MANUAL DIFF ([id number])Indication: Therapeutic drug monitoring On: :57 Request Metabolic Panel, Basic (32534)Indication: Therapeutic drug monitoring On: :57 Request Methymalonic Acid, Serum (02504)Indication: Vitamin B 12 deficiency On: 24-Avl-205692:51 Request CALCIFIDIOL (16478) VIT D 25Indication: Vitamin D deficiency, unspecified On: 41-Kfq-651014:45 Request LIPID PANEL (22198)Indication: Other and unspecified hyperlipidemia On: 55-Rfu-222719:45 Request CALCIFIDIOL (12148) VIT D 25Indication: Uncontrolled type II diabetes mellitus On: :46 Request TSH ([id number])Indication: Uncontrolled type II diabetes mellitus On: :46 Request URINALYSIS, W/ MICRO ([id number])Indication: Uncontrolled type II diabetes mellitus On: :46 Request MICROALBUMIN: CREATININE RATIO ([id number]) AND (16752)Indication: Uncontrolled type II diabetes mellitus On: :46 Request METABOLIC PANEL, COMPREHENSIVE (82649)Indication: Uncontrolled type II diabetes mellitus On: :46 Request LIPID PANEL (06699)Indication: Uncontrolled type II diabetes mellitus On: :45 Request CBC W/AUTO DIFF WBC ([id number])Indication: Uncontrolled type II diabetes mellitus On: :45 Request Rapid Flu (53848 x 2)Indication: Flu-like symptoms On: 86-Mbm-208944:12 Request VITAMIN B-12 (CYANOCOBALAMIN) (85049)Indication: Vitamin B 12 deficiency On: 56-Jjx-460295:45 Request FECAL OCCULT- Tubes sent home ([id number])Indication: Encounter for screening for malignant neoplasm of colon (Renamed from Special screening for malignant neoplasms, colon) On: 73-Wdw-384354:35 Request THYROXINE FREE ([id number])Indication: Tachycardia On: 7-Kyx-467572:04 Request FREE TRIDOTHYRONINE (T3) ([id number])Indication: Tachycardia On: 3-Qou-123295:04 Request TSH (THYROID STIMULATING HORMONE) ([id number])Indication: Tachycardia On: 1-Zpv-476950:04 Request serum immunofixation (57271)Indication: MGUS (monoclonal gammopathy of unknown significance) On: 40-Pto-449612:14 Request urine immunofixation ([id number])Indication: MGUS (monoclonal gammopathy of unknown significance) On: 61-Oxf-979147:14 Request serum free light chains (34739)Indication: MGUS (monoclonal gammopathy of unknown significance) On: 16-Rzf-411608:14 Request CBC W/AUTO DIFF WBC ([id number])Indication: Diabetes mellitus type 2, controlled On: 32-Xyb-831870:13 Request MICROALBUMIN: CREATININE RATIO (94430) AND ([id number])Indication: Diabetes mellitus type 2, controlled On: 05-Vln-515340:13 Request METABOLIC PANEL, COMPREHENSIVE ([id number])Indication: Diabetes mellitus type 2, controlled On: 89-Ozn-103236:13 Request LIPID PANEL (28088)Indication: Mixed hyperlipidemia On: 07-Ecf-864448:13 Request VITAMIN B-12 (CYANOCOBALAMIN) ([id number])Indication: Other vitamin B12 deficiency anemia On: :12 Request CBC (AUTO) (40562)Indication: Other vitamin B12 deficiency anemia On: 13-Tuq-381376:12 Request Vitamin D Hydroxy ([id number])Indication: Vitamin D deficiency, unspecified On: 85-Uru-640744:12 Request LIPID PANEL (06692)Indication: Mixed hyperlipidemia On: 5-Ojt-512468:42 Request METABOLIC PANEL, COMPREHENSIVE ([id number])Indication: Benign essential hypertension (Renamed from Benign essential HTN) On: 2-Gya-002592:41 Request MICROALBUMIN: CREATININE RATIO ([id number]) AND (32143)Indication: Benign essential hypertension (Renamed from Benign essential HTN) On: :41 Request SPEP ([id number])Indication: Anemia, unspecified On: 30-Coz-608089:17 Request UPEP ([id number])Indication: Anemia, unspecified On: 03-Fnn-615841:17 Request CBC W/AUTO DIFF WBC ([id number])Indication: Iron (Fe) deficiency anemia On: 3-Wov-638291:38 Request TSH ([id number])Indication: Acquired hypothyroidism On: 0-Pgw-077828:38 Request TSH ([id number])Indication: Acquired hypothyroidism On: 43-Jzs-054876:34 Request SPEP ([id number])Indication: Iron (Fe) deficiency anemia On: 23-Pgh-878620:34 Request UPEP ([id number])Indication: Iron (Fe) deficiency anemia On: 29-Amq-378970:34 Request IRON BINDING CAPACITY (TIBC) ([id number])Indication: Iron (Fe) deficiency anemia On: 06-Zwl-911581:34 Request FERRITIN ([id number])Indication: Iron (Fe) deficiency anemia On: 33-Ukx-912454:34 Request IRON ([id number])Indication: Iron (Fe) deficiency anemia On: 78-Zau-116477:34 Request CBC, PLATELETS & AUT DIFF ([id number])Indication: Other vitamin B12 deficiency anemia On: :34 Request VITAMIN B-12 (CYANOCOBALAMIN) ([id number])Indication: Other vitamin B12 deficiency anemia On: 65-Zve-886915:33 Request Hemoglobin Glyclated (HGB A1C) (89940)Indication: Diabetes mellitus type 2, controlled On: 37-Myd-932505:33 Request CBC, PLATELETS & AUT DIFF ([id number])Indication: Other vitamin B12 deficiency anemia On: :31 Request VITAMIN B-12 (CYANOCOBALAMIN) (65947)Indication: Other vitamin B12 deficiency anemia On: :30 Request METABOLIC PANEL, COMPREHENSIVE (72796)Indication: Benign essential hypertension (Renamed from Benign essential HTN) On: :30 Request LIPID PANEL ([id number])Indication: Other and unspecified hyperlipidemia On: :30 Request Vitamin D Hydroxy ([id number])Indication: Vitamin D deficiency, unspecified On: : Request MRKQD-CNRTSHRQMUO-VKYJY ([id number])Indication: Fatty liver On: : Request ZMTIJ-ULXOUOPXXDE-WKRTH ([id number])Indication: Fatty liver On: 73-Uns-366054:24 Request LIPID PANEL (07535)Indication: Mixed hyperlipidemia On: :23 Request TSH ([id number])Indication: Acquired hypothyroidism On: 44-Kje-822217:23 Request MICROALBUMIN: CREATININE RATIO ([id number]) AND ([id number])Indication: Diabetes mellitus type 2, controlled On: 41-Vzn-670413:23 Request METABOLIC PANEL, COMPREHENSIVE (72927)Indication: Diabetes mellitus type 2, controlled On: 13-Kfp-420116:23 Request Vitamin D Hydroxy (50482)Indication: Vitamin D deficiency, unspecified On: 42-Con-907792:23 Request CBC, PLATELETS & AUT DIFF ([id number])Indication: Other vitamin B12 deficiency anemia On: 29-Dms-686358:20 Request VITAMIN B-12 (CYANOCOBALAMIN) ([id number])Indication: Other vitamin B12 deficiency anemia On: 85-Pzd-596077:20 Request Vitamin D Hydroxy (37666)Indication: Vitamin D deficiency, unspecified On: 19-Pds-220025:38 Request VITAMIN B-12 (CYANOCOBALAMIN) ([id number])Indication: Other vitamin B12 deficiency anemia On: :38 Request CBC W/AUTO DIFF WBC ([id number])Indication: Other vitamin B12 deficiency anemia On: 12-Jhp-357469:37 Request TSH (40386)Indication: Acquired hypothyroidism On: 30-Lyf-387616:37 Request LIPID PANEL ([id number])Indication: Mixed hyperlipidemia On: :37 Request YTPLD-EXTVPPOLUCI-GKZNB ([id number])Indication: Fatty liver On: :08 Request PTT (Activated Partial Thromboplastin Time) (50397)Indication: Fatty liver On: : Request PT (Prothrobim Time) ([id number])Indication: Fatty liver On: :08 Request Vitamin D Hydroxy (90597)Indication: Vitamin D deficiency, unspecified On: 08-Yqq-409932: Request VITAMIN B-12 (CYANOCOBALAMIN) (06731)Indication: Other vitamin B12 deficiency anemia On: : Request CBC W/AUTO DIFF WBC (22209)Indication: Diabetes mellitus type 2, controlled On: : Request METABOLIC PANEL, COMPREHENSIVE (74009)Indication: Diabetes mellitus type 2, controlled On: 92-Agp-951361: Request LIPID PANEL (88796)Indication: Mixed hyperlipidemia On: : Request LIPID PANEL (75804)Indication: HYPERTENSION, NOS On: 8-Sfs-265143:40 Request CBC WITH MANUAL DIFF ([id number])Indication: HYPERTENSION, NOS On: 4-Lsh-836338:40 Request METABOLIC PANEL, COMPREHENSIVE ([id number])Indication: HYPERTENSION, NOS On: :40 Request FECAL OCCULT- Tubes sent home (50455)Indication: Anemia, unspecified On: 71-Dkt-133557:38 Request IRON ([id number])Indication: Anemia, unspecified On: :38 Request CBC WITH MANUAL DIFF ([id number])Indication: HYPERTENSION, NOS On: 8-Yqu-304166:29 Request METABOLIC PANEL, COMPREHENSIVE (07762)Indication: Uncontrolled type II diabetes mellitus On: 5-Kiy-127977:28 Request TSH (THYROID STIMULATING HORMONE) ([id number])Indication: Acquired hypothyroidism On: 99-Unm-363698:08 Request HgA1C , Office (42213)Indication: Diabetes mellitus type 2, controlled On: 55-Hfe-448544:55 Request VITAMIN B-12 (CYANOCOBALAMIN) (04253)Indication: Other vitamin B12 deficiency anemia On: 0-Gij-851486:17 Request LIPID PANEL (90377)Indication: Other and unspecified hyperlipidemia On: :17 Request MICROALBUMIN: CREATININE RATIO (76383) AND (07394)Indication: Uncontrolled type II diabetes mellitus On: : Request METABOLIC PANEL, COMPREHENSIVE (45905)Indication: Uncontrolled type II diabetes mellitus On: : Request HgA1C , Office (73659)Indication: Diabetes mellitus type 2, controlled On: :25 Request LIPID PANEL ([id number])Indication: Other and unspecified hyperlipidemia On: : Request METABOLIC PANEL, COMPREHENSIVE (40671)Indication: Diabetes mellitus type 2, controlled On: : Request MICROALBUMIN: CREATININE RATIO ([id number]) AND ([id number])Indication: Diabetes mellitus type 2, controlled On: : Request VITAMIN B-12 (CYANOCOBALAMIN) (34202)Indication: Other vitamin B12 deficiency anemia On: : Request CBC, PLATELETS & AUT DIFF ([id number])Indication: Other vitamin B12 deficiency anemia On: :11 Request Vitamin D Hydroxy (28059)Indication: Vitamin D deficiency, unspecified On: 57-Awj-253596:10 Request Blood Glucose , Office (83272)Indication: Diabetes mellitus type 2, controlled On: :29 Request LIPID PANEL (26788)Indication: Other and unspecified hyperlipidemia On: :26 Request Vitamin D Hydroxy (97982)Indication: Vitamin D deficiency, unspecified On: : Request VITAMIN B-12 (CYANOCOBALAMIN) (09483)Indication: Other vitamin B12 deficiency anemia On: : Request METABOLIC PANEL, COMPREHENSIVE (97341)Indication: Benign essential hypertension (Renamed from Benign essential HTN) On: : Request MICROALBUMIN: CREATININE RATIO ([id number]) AND ([id number])Indication: Uncontrolled type II diabetes mellitus On: : Request Sputum Culture (70365)Indication: Chronic cough On: 7-Vvu-025763:58 Request RANI CULTURE-OTHER (75207)Indication: Sore throat On: 51-Tys-979015:06 Request Urinalysis, Office (92782)Indication: Abnormal urine On: :14 Request RANI CULTURE-OTHER ([id number])Indication: Abnormal urine On: :14 Request CCP ANTIBODY ([id number])Indication: History of poliomyelitis (Renamed from H/O acute poliomyelitis) On: : Request ANTI-Sm (ANTI [place] ANTIBODY) (37210) test code [id number]: History of poliomyelitis (Renamed from H/O acute poliomyelitis) On: : Request RHEUMATOID FACTOR-QUANT ([id number]) test code [id number]: History of poliomyelitis (Renamed from H/O acute poliomyelitis) On: : Request Vitamin D Hydroxy (68841)Indication: Vitamin D deficiency, unspecified On: 27-Vqk-467425:15 Request LIPID PANEL (61916)Indication: Other and unspecified hyperlipidemia On: :15 Request TSH ([id number])Indication: Acquired hypothyroidism On: 29-Jfd-792020:15 Request METABOLIC PANEL, COMPREHENSIVE (25926)Indication: Diabetes mellitus type 2, controlled On: 07-Udd-551587:14 Request VITAMIN B-12 (CYANOCOBALAMIN) (00984)Indication: Other vitamin B12 deficiency anemia On: 62-Oxm-754323:08 Request MICROALBUMIN: CREATININE RATIO (26850) AND (29398)Indication: Uncontrolled type II diabetes mellitus On: 41-Gbn-450667:30 Request METABOLIC PANEL, COMPREHENSIVE (56127)Indication: Uncontrolled type II diabetes mellitus On: 02-Rqb-764240:30 Request TSH ([id number])Indication: Acquired hypothyroidism On: 49-Jnp-437417:30 Request Vitamin D Hydroxy (08792)Indication: Vitamin D deficiency, unspecified On: 76-Hhf-451504:30 Request LIPID PANEL (36209)Indication: Other and unspecified hyperlipidemia On: 83-Zhp-100250:29 Request LIPID PANEL (55266)Indication: Other and unspecified hyperlipidemia On: 86-Xbm-000657:51 Request TSH ([id number])Indication: Acquired hypothyroidism On: 72-Tex-809679:50 Request Vitamin D Hydroxy (58356)Indication: Vitamin D deficiency, unspecified On: 75-Mxu-674182:50 Request CBC WITH MANUAL DIFF ([id number])Indication: Diabetes mellitus type 2, controlled On: 26-Mjy-306337:50 Request METABOLIC PANEL, COMPREHENSIVE ([id number])Indication: Diabetes mellitus type 2, controlled On: 99-Usa-628573:50 Request Vitamin D Hydroxy (11644)Indication: Vitamin D deficiency, unspecified On: :44 Request VITAMIN B-12 (CYANOCOBALAMIN) (58606)Indication: Other vitamin B12 deficiency anemia On: :44 Request CBC WITH MANUAL DIFF ([id number])Indication: Anemia, unspecified On: :43 Request METABOLIC PANEL, COMPREHENSIVE (42985)Indication: Diabetes mellitus type 2, controlled On: :43 Request MICROALBUMIN: CREATININE RATIO (42157) AND (26632)Indication: Diabetes mellitus type 2, controlled On: :43 Request LIPID PANEL (14053)Indication: Other and unspecified hyperlipidemia On: :43 Request TSH (09392)Indication: Acquired hypothyroidism On: :43 Request Vitamin D Hydroxy (82370)Indication: Vitamin D deficiency, unspecified On: :03 Request LIPID PANEL (37613)Indication: Other and unspecified hyperlipidemia On: :03 Request CBC WITH MANUAL DIFF ([id number])Indication: Diabetes mellitus type 2, controlled On: :02 Request METABOLIC PANEL, COMPREHENSIVE (01536)Indication: Diabetes mellitus type 2, controlled On: 4-Ope-126089:02 Request VITAMIN B-12 (CYANOCOBALAMIN) ([id number])Indication: Other vitamin B12 deficiency anemia On: 1-Pjo-665960:36 Request Comments: Lot #[id number]-left deltoidDose-1 mlgiven by: Dani Rivera LPN LIPID PANEL (06556)Indication: Other and unspecified hyperlipidemia On: :28 Request METABOLIC PANEL, COMPREHENSIVE (76681)Indication: Uncontrolled type II diabetes mellitus On: :28 Request TSH ([id number])Indication: Acquired hypothyroidism On: :28 Request Vitamin D Hydroxy (94020)Indication: Vitamin D deficiency, unspecified On: :22 Request CBC WITH MANUAL DIFF ([id number])Indication: Anemia, unspecified On: :22 Request CBC WITH MANUAL DIFF ([id number])Indication: Other vitamin B12 deficiency anemia On: 1-Wfg-100661:20 Request Blood Glucose , Office (63350)Indication: Uncontrolled type II diabetes mellitus On: :15 Request Comments: 149 HgA1C , Office ([id number])Indication: Uncontrolled type II diabetes mellitus On: :15 Request METABOLIC PANEL, COMPREHENSIVE ([id number])Indication: Other and unspecified hyperlipidemia On: :22 Request LIPID PANEL (87498)Indication: Other and unspecified hyperlipidemia On: :22 Request TSH ([id number])Indication: Acquired hypothyroidism On: :22 Request HEMOGLOBIN GLYCLATED (HGB A1C) (06333)Indication: Abnormal glucose tolerance test On: 99-Dmq-038729:20 Request VITAMIN B-12 (CYANOCOBALAMIN) (99322)Indication: Other vitamin B12 deficiency anemia On: 05-Lzw-318965:17 Request Vitamin D Hydroxy ([id number])Indication: Vitamin D deficiency, unspecified On: :21 Request VITAMIN B-12 (CYANOCOBALAMIN) (38722)Indication: Other vitamin B12 deficiency anemia On: 2-Juk-323007:20 Request LIPID PANEL ([id number])Indication: Abnormal glucose tolerance test On: :20 Request CBC WITH MANUAL DIFF ([id number])Indication: Abnormal glucose tolerance test On: 1-Ozz-907460:20 Request METABOLIC PANEL, COMPREHENSIVE (67726)Indication: Abnormal glucose tolerance test On: :20 Request METABOLIC PANEL, COMPREHENSIVE (55660)Indication: Abnormal glucose tolerance test On: :59 Request CBC WITH MANUAL DIFF (34790)Indication: Abnormal glucose tolerance test On: 5-Unc-393705:59 Request Vitamin D Hydroxy (10639)Indication: Vitamin D deficiency, unspecified On: 8-Hmn-673177:59 Request VITAMIN B-12 (CYANOCOBALAMIN) (78063)Indication: Other vitamin B12 deficiency anemia On: 1-Nru-431598:59 Request TSH ([id number])Indication: Acquired hypothyroidism On: 3-Lvl-692849:58 Request LIPID PANEL (00175)Indication: Other and unspecified hyperlipidemia On: 8-Sar-200096:58 Request CCP ANTIBODY ([id number])Indication: Pain in unspecified joint On: 91-Hwj-003198:22 Request VITAMIN B-12 (CYANOCOBALAMIN) (46330)Indication: Other vitamin B12 deficiency anemia On: 1-Qlb-094306:10 Request Vitamin D Hydroxy (83159)Indication: Vitamin D deficiency, unspecified On: 9-Fca-548606:10 Request MICROALBUMIN: CREATININE RATIO (02771) AND (16493)Indication: Uncontrolled type II diabetes mellitus On: :10 Request CBC WITH MANUAL DIFF (22645)Indication: Uncontrolled type II diabetes mellitus On: 3-Vub-686563:10 Request METABOLIC PANEL, COMPREHENSIVE (64816)Indication: Benign essential hypertension (Renamed from Benign essential HTN) On: 6-Alr-927525:09 Request LIPID PANEL (67324)Indication: Other and unspecified hyperlipidemia On: 4-Rdd-190473:09 Request TSH (38847)Indication: Acquired hypothyroidism On: 4-Bmq-537976:39 Request VITAMIN B-12 (CYANOCOBALAMIN) (36034)Indication: Other vitamin B12 deficiency anemia On: 9-Okh-399222:37 Request HEPATIC FUNCTION PANEL (62164)Indication: Other and unspecified hyperlipidemia On: 3-Hyl-226700:36 Request LIPID PANEL (70642)Indication: Other and unspecified hyperlipidemia On: 4-Sgp-140662:36 Request Vitamin D Hydroxy (23083)Indication: Vitamin D deficiency, unspecified On: 0-Vlr-106091:36 Request METABOLIC PANEL, COMPREHENSIVE (12039)Indication: Benign essential hypertension (Renamed from Benign essential HTN) On: 3-Ymr-564623:35 Request LIPID PANEL (60386)Indication: Other and unspecified hyperlipidemia On: 1-Kto-760139:35 Request Vitamin D Hydroxy (86493)Indication: Vitamin D deficiency, unspecified On: 1-Bqv-296557:30 Request Vitamin D Hydroxy (69623)Indication: Vitamin D deficiency, unspecified On: 17-Ekd-363085:10 Request MICROALBUMIN: CREATININE RATIO (96400) AND (08360)Indication: Uncontrolled type II diabetes mellitus On: 14-Pdy-386925:07 Request LIPID PANEL (40523)Indication: Other and unspecified hyperlipidemia On: :07 Request TSH (98041)Indication: Acquired hypothyroidism On: :07 Request VITAMIN B-12 (CYANOCOBALAMIN) (38931)Indication: Other vitamin B12 deficiency anemia On: 53-Opt-787522:42 Request Vitamin D Hydroxy (60932)Indication: Vitamin D deficiency, unspecified On: :50 Request IRON BINDING CAPACITY (TIBC) (07436)Indication: Iron (Fe) deficiency anemia On: :50 Request LDH (LD) (LACTATE DEHYDROGENASE) (26222)Indication: Iron (Fe) deficiency anemia On: :50 Request FERRITIN (22969)Indication: Iron (Fe) deficiency anemia On: :50 Request IRON ([id number])Indication: Iron (Fe) deficiency anemia On: :50 Request CBC WITH MANUAL DIFF (34935)Indication: Iron (Fe) deficiency anemia On: :50 Request HEPATIC FUNCTION PANEL (78390)Indication: Other and unspecified hyperlipidemia On: :44 Request LIPID PANEL (18301)Indication: Other and unspecified hyperlipidemia On: :44 Request CBC WITH MANUAL DIFF (12981)Indication: Other vitamin B12 deficiency anemia On: 1-Bjr-738703:54 Request MICROALBUMIN: CREATININE RATIO (00840) AND (45293)Indication: Glucose intolerance (no malabsorption) On: 1-Vhe-024737:54 Request METABOLIC PANEL, COMPREHENSIVE (75160)Indication: HYPERTENSION, NOS On: :54 Request LIPID PANEL (75358)Indication: Other and unspecified hyperlipidemia On: :53 Request VITAMIN B-12 (CYANOCOBALAMIN) (80178)Indication: Other vitamin B12 deficiency anemia On: :53 Request IRON ([id number])Indication: Iron (Fe) deficiency anemia On: :53 Request Vitamin D Hydroxy (25962)Indication: Osteopenia On: 1-Qsr-514395:49 Request Methylmalonic acid, serum 57792Tupdlzpvcz: Other vitamin B12 deficiency anemia On: :03 Request VITAMIN B-12 (CYANOCOBALAMIN) (94431)Indication: Other vitamin B12 deficiency anemia On: 22-Vim-084211:03 Request TSH (31672)Indication: Acquired hypothyroidism On: :03 Request HgA1C , Office (74009)Indication: Abnormal glucose tolerance test On: 1-Gmb-391538:06 Request TSH (52074)Indication: Acquired hypothyroidism On: :35 Request LIPID PANEL (35397)Indication: Other and unspecified hyperlipidemia On: :35 Request METABOLIC PANEL, COMPREHENSIVE (33375)Indication: SOB (shortness of breath) on exertion On: :34 Request CBC WITH MANUAL DIFF ([id number])Indication: SOB (shortness of breath) on exertion On: :34 Request TSH ([id number])Indication: Acquired hypothyroidism On: 9-Gbl-494949:46 Request Comments: do in 6 weeks TSH (36441)Indication: Acquired hypothyroidism On: 71-Qzu-898955:15 Request Comments: DO IN 6 WEEKS WITH MEDICATION CHANGE TSH (56381)Indication: Other malaise and fatigue On: 20-Mqz-53552:49 Request Iron Binding Capacity (TIBC) (46878)Indication: Iron (Fe) deficiency anemia On: 77-Ncd-695315:43 Request Ferritin (21924)Indication: Iron (Fe) deficiency anemia On: 55-Amm-087527:43 Request Iron (28014)Indication: Iron (Fe) deficiency anemia On: 01-Hez-469049:43 Request HEPATIC FUNCTION PANEL (68158)Indication: Mixed hyperlipidemia On: 68-Hyr-352486:42 Request LIPID PANEL (04668)Indication: Mixed hyperlipidemia On: 40-Ryr-840651:42 Request Comments: do in 3 months HEPATIC FUNCTION PANEL (76804)Indication: Mixed hyperlipidemia On: 7-Jil-909032:11 Request LIPID PANEL (81982)Indication: Mixed hyperlipidemia On: 3-Zdg-657745:11 Request Comments: do in 3 mo TSH (64191)Indication: Acquired hypothyroidism On: Request VITAMIN B-12 (CYANOCOBALAMIN) (97297)Indication: Anemia, unspecified On: Request LDH (LD) (LACTATE DEHYDROGENASE) (79667)Indication: Anemia, unspecified On: Request RETICULOCYTE COUNT MANUL (69463)Indication: Anemia, unspecified On: Request IRON BINDING CAPACITY (TIBC) (27479)Indication: Anemia, unspecified On: Request IRON ([id number])Indication: Anemia, unspecified On: Request FOLIC ACID SERUM (63044)Indication: Anemia, unspecified On: Request HAPTOGLOBIN (79539)Indication: Anemia, unspecified On: Request FERRITIN (39658)Indication: Anemia, unspecified On: Request CBC, PLATELETS & AUT DIFF (59923)Indication: Anemia, unspecified On: Request HgA1C , Office (68949)Indication: Abnormal glucose tolerance test On: : Request CBC with manual diff ([id number])Indication: Anemia, unspecified On: :49 Request HgA1C , Office (77524)Indication: Abnormal glucose tolerance test On: 52-Pcm-373865:30 Request Comments: controlled URINALYSIS W/O MICRO (94621)Indication: HYPERTENSION, NOS On: :03 Request TSH ([id number])Indication: Acquired hypothyroidism On: :03 Request MICROALBUMIN URINE QUANT ([id number])Indication: HYPERTENSION, NOS On: 96-Rdr-487111:03 Request METABOLIC PANEL, COMPREHENSIVE (12193)Indication: HYPERTENSION, NOS On: :03 Request LIPID PANEL (04562)Indication: HYPERTENSION, NOS On: 49-Lty-175011:03 Request CBC WITH MANUAL DIFF ([id number])Indication: HYPERTENSION, NOS On: 39-Cff-636552:03 Request Planned Encounters Medical; Other symptoms - anxiety On: 24-Jun-2018 13:00 [facility] Melanie DO, Doris Melanie DO, Doris Melanie DO, Doris Planned Procedures Aerosol Treatment (41252)By: On: 14-Apr-2018 Intent Thelma Sofia Comments: Lungs clear after albuterol aerosol treatment Ultrasound - LiverBy: Melanie KEBEDE, On: 21-Nov-2017 Intent Doris Melanie DO, Doris Melanie DO, Doris B 12 Injection, 1000 mcg (J3420)By: On: 21-Nov-2017 Intent Melanie DO, Doris Melanie DO, Comments: Vitamin b12 1000mcg injection lot:[id number]:04/2019L DELT IMpt tolerated well CARYN DUMONT Doris Melanie DO, Drois PHYSICAL THERAPY (75746)By: [place] On: 28-Oct-2017 Intent Thelma Radiology - Hip - LeftBy: [place], On: 28-Oct-2017 Intent Thelma Aerosol Treatment (71649)By: Melanie On: 07-Aug-2017 Intent DO, Doris Melanie DO, Doris Comments: more a/e less nois e Melanie DO, Doris Spirometry (55714)By: Melanie KEBEDE, On: 07-Aug-2017 Intent Doris Melanie DO, Doris Melanie Comments: really poor techniq DO, Doris Radiology - Chest- PA and LatBy: On: 07-Aug-2017 Intent Melanie DO, Doris Melanie DO, Doris Melanie DO, Doris IV Needle placement (08897)By: On: 02-Aug-2017 Intent Melanie DO, Doris Melanie DO, Doris Melanie DO, Doris INFUSION, NORMAL SALINE SOLUTION , On: 02-Aug-2017 Intent 1000 CC (Special Coverage Comments: lot:[id number]:02-26-2019rte:right anticubdose:1000ml given by:david Snow LPN Instructions Apply. See MCM: 2049) (J7030)By: Melanie , Doris Melanie DO, Doris Melanie DO, Doris INFUSION, NORMAL SALINE SOLUTION , On: 01-Aug-2017 Intent 1000 CC (Special Coverage Comments: lot:[id number]:02-26-2019rte:IV left anticubdose:1000ml NS given by:david Snow LPN Instructions Apply. See MCM: 204) (J7030)By: Marcia Britton Aerosol Treatment (05747)By: Melanie On: 01-Aug-2017 Intent Jd KEBEDEeen Melanie DOTaliDoris Comments: more a/e less junky sounding Melanie DO, Doris PNEUM VAC ADLT/IMUMNOSPR, SBC/INTRM On: 25-Apr-2017 Intent ([id number])By: Doris Navarro DO Comments: 0.5cc given sq [place] arm lot [id number] exp 09/05/18 Melanie DO, Doris Melanie DOTaliDoris INTENSIVE BEHAVIORAL THERAPY TO On: 25-Apr-2017 Intent REDUCE CARDIOVASCULAR DISEASE RISK, INDIVIDUAL, [id number]-LE-KKFO, ANNUAL, 15 MINUTES (G0446)By: Doris Navarro DO Melanie DO, Doris Melanie DO, Doris [id number] BEHAVIORAL COUNSELING On: 25-Apr-2017 Intent FOR OBESITY, 15 MINUTES (G0447)By: Doris Navarro DO Melanie DO, Doris Melanie DO, Doris B 12 Injection, 1000 mcg (J3420)By: On: 25-Apr-2017 Intent Melanie DOTaliDoris Melanie DO, Comments: 1 ml given lt arm lot [id number] exp 03/15 Doris Jay DO ELECTROCARDIOGRAM, COMPLETE (ECG) On: 25-Apr-2017 Intent ([id number])By: Doris Navarro DO Comments: nsr no acute chg Melanie DO, Doris Melanie DO, Doris B 12 Injection, 1000 mcg (J3420)By: On: 14-Mar-2017 Intent Melanie DO, Doris Melanie DO, Comments: lot [id number] 09/16left [id number] mcgas, EQUAL OPPORTUNITY REPRESENTATIVE Doris Melanie DO, Doris B 12 Injection, 1000 mcg (J3420)By: On: 31-Dec-2016 Intent Melanie DO, Doris Melanie DO, Comments: [id number], EQUAL OPPORTUNITY REPRESENTATIVE Doris Melanie DO, Doris B 12 Injection, 1000 mcg (J3420)By: On: 20-Sep-2016 Intent Melanie DO, Doris Melanie DO, Comments: lot:[id number]: 11/13Dose: 1,000 mcgSite: R dltdLocation; IMby:, EQUAL OPPORTUNITY REPRESENTATIVE Doris Melanie DO, Doris Solu- Medrol Injection, 125mg On: 20-Aug-2016 Intent (J2930)By: Melanie DO Doris Comments: lot: [id number]: 01/14site/route: LGM/IMamt:2mLVIS signed when applicableChelsea, BAG FILLER Melanie DO, Doris Melanie DO, Doris Aerosol Treatment (07329)By: Melanie On: 20-Aug-2016 Intent DO, Doris Melanie DO, Doris Comments: albulterol 0.83%relistedned nad more a/e less noise Melanie DO, Doris B 12 Injection, 1000 mcg (J3420)By: On: 20-Aug-2016 Intent Melanie DO, Doris Melanie DO, Comments: lot: [id number]: ite/route: L del/IMamt: 1mLVIS signed when applicableChelsea, BAG FILLER Doris Melanie DO, Doris Spirometry (63791)By: Melanie DO, On: 16-Aug-2016 Intent Doris Melanie DO, Doris Melanie Comments: ok stable - DO, Doris Aerosol Treatment (70095)By: Melanie On: 16-Aug-2016 Intent DO, Doris Melanie DO, Doris Comments: albulterol 0.83%more a.e stil some niose in RUL -- junky and easy to cough Melanie DO, Doris Solu- Medrol Injection, 125mg On: 16-Aug-2016 Intent (J2930)By: Melanie DO Doris Comments: lot [id number] mgright gm, IMas EQUAL OPPORTUNITY REPRESENTATIVE Melanie DO, Doris Melanie DO, Doris B 12 Injection, 1000 mcg (J3420)By: On: 20-Jul-2016 Intent Melanie DO, Doris Melanie DO, Comments: B12lot:6202exp:ite:rt deltroute:IMdose:1mlD.HAY Valentin Melanie DO, Doris Solu- Medrol Injection, 125mg On: 20-Jul-2016 Intent (J2930)By: Doris Navarro DO Comments: lot: [id number]: 01/14site/route: RGM/IMamt: 2mLVIS signed when applicableChelsea, BAG FILLER Melanie DO, Doris Melanie DO, Dorsi Aerosol Treatment (30143)By: Melanie On: 20-Jul-2016 Intent DO, Doris Melanie DO, Doris Comments: less wheeze good a/e- less irritability with breathing Doris Navarro DO Radiology - Chest- PA and LatBy: On: 20-Jul-2016 Intent Melanie DO, Doris Melanie DO, Doris Melanie DO, Doris Spirometry (52528)By: Melanie KEBEDE, On: 20-Jul-2016 Intent Doris Melanie Doris KEBEDE Comments: mild restriction =- poor curve and technique DO, Doris ELECTROCARDIOGRAM, COMPLETE (ECG) On: 20-Jul-2016 Intent ([id number])By: Doris Navarro DO Comments: sinus braden no acute chg Melanie DO, Doris Melanie DO, Doris B 12 Injection, 1000 mcg (J3420)By: On: 29-May-2016 Intent Melanie DO, Doris Melanie DO, Comments: Lot:[id number]:11/13Dose:1mlRoute:IMSite:r armGiven By:SAADIA signed Doris Melanie DOJdDoris Flu Vaccine (Quadrivalent) 10399Wc: On: 29-May-2016 Intent Melanie DO, Doris Melanie DO, Comments: Lot:[id number]:01/25/17Dose:0.5mLRoute:IMSite:L DltdGiven By:SAADIA signed Doris Melanie DO, Doris B 12 Injection, 1000 mcg (J3420)By: On: 21-May-2016 Intent Melanie DO, Doris Melanie DO, Doris Melanie DO, Doris B 12 Injection, 1000 mcg (J3420)By: On: 18-May-2016 Intent Melanie DO, Doris Melanie DO, Comments: B12lot:6185exp:ite:rt deltroute:IMdose:1mlD.HAY Valentin Doris Melanie DO, Doris B 12 Injection, 1000 mcg (J3420)By: On: 11-May-2016 Intent Melanie DO, Doris Melanie DO, Comments: lot [id number] [facility] dltdas, EQUAL OPPORTUNITY REPRESENTATIVE Doris Melanie DO, Doris B 12 Injection, 1000 mcg (J3420)By: On: 08-May-2016 Intent Melanie DO, Doris Melanie DO, Comments: B12lot:6185exp:ite:rt deltroute:IMdose:1mlD.HAY Valentin Doris Melanie DO, Doris B 12 Injection, 1000 mcg (J3420)By: On: 04-May-2016 Intent Visit, Nurse Comments: given - see flowsheet B 12 Injection, 1000 mcg (J3420)By: On: 27-Apr-2016 Intent Melanie DO, Doris Melanie DO, Comments: Lot:[id number]:11/13Dose:1mlRoute:IMSite:l Anupven By:SAADIA signed Doris Melanie DO, Doris B 12 Injection, 1000 mcg (J3420)By: On: 20-Apr-2016 Intent Melanie DO, Doris Melanie DO, Comments: lot: [id number]: ite/route: R del/IMamt: 1mLVIS signed when applicableSIMI Salas Doris Melanie DO, Doris B 12 Injection, 1000 mcg (J3420)By: On: 13-Apr-2016 Intent Mckinley Valentin Comments: B12lot:6185exp:ite:lt deltroute:IMdose:1mlDHAY Garcia INTENSIVE BEHAVIORAL THERAPY TO On: 09-Apr-2016 Intent REDUCE CARDIOVASCULAR DISEASE RISK, INDIVIDUAL, [id number], ANNUAL, 15 MINUTES (G0446)By: Melanie DO, Doris Melanie DO, Doris Melanie DO, Doris [id number] BEHAVIORAL COUNSELING On: 09-Apr-2016 Intent FOR OBESITY, 15 MINUTES (G0447)By: Melanie DO, Doris Melanie DO, Doris Melanie DO, Doris MAMMOGRAM, SCREENING, BOTH BREAST On: 09-Apr-2016 Intent (40780)By: Melanie DO, Doris Melanie DO, Doris Melanie DO, Doris DEXA SCAN AXIAL SKELETON (52823)By: On: 09-Apr-2016 Intent Melanie DO, Doris Melanie DO, Doris Melanie DO, Doris B 12 Injection, 1000 mcg (J3420)By: On: 06-Apr-2016 Intent Melanie DO, Doris Melanie DO, Comments: Lot:[id number]:11/13Dose:1mlRoute:IMSite:l armGiven By:SAADIA signed Doris Melanie DO, Doris B 12 Injection, 1000 mcg (J3420)By: On: 30-Mar-2016 Intent Melanie DO, Doris Melanie DO, Comments: Lot:[id number]:11/13Dose:1mlRoute:IMSite:l armGiven By:SAADIA signed Doris Melanie DO, Doris B 12 Injection, 1000 mcg (J3420)By: On: 22-Mar-2016 Intent Melanie DO, Doris Melanie DO, Comments: 1 ml rt arm lot [id number] exp 11/13 Doris Melanie DO, Doris B 12 Injection, 1000 mcg (J3420)By: On: 16-Mar-2016 Intent Melanie DO, Doris Melanie DO, Comments: Lot:[id number]:11/13Dose:1mlRoute:IMSite:l arm Given By:SAADIA signed Doris Melanie DO, Doris B 12 Injection, 1000 mcg (J3420)By: On: 09-Mar-2016 Intent Melanie DO, Doris Melanie DO, Comments: 0.5 cc given im lt arm lot [id number] exp 11/13 Doris Melanie DO, Doris B 12 Injection, 1000 mcg (J3420)By: On: 24-Feb-2016 Intent Melanie DO, Doris Melanie DO, Comments: Lot:[id number]:12/13Dose:1mlRoute:IMSite:l armGiven By:SAADIA signed Doris Melanie DO, Doris B 12 Injection, 1000 mcg (J3420)By: On: 17-Feb-2016 Intent Melanie DO, Doris Melanie DO, Comments: Lot:[id number]:12/13Dose:1mlRoute:IMSite:r armGiven By:SAADIA signed Doris Melanie DO, Doris B 12 Injection, 1000 mcg (J3420)By: On: 07-Feb-2016 Intent Melanie DO, Doris Melanie DO, Comments: Lot:[id number]:10/2017Dose:1mlRoute:IMSite:l armGiven By:SAADIA signed Doris Melanie DO, Doris B 12 Injection, 1000 mcg (J3420)By: On: 26-Jan-2016 Intent Melanie DO, Doris Melanie DO, Comments: B12lot:5200exp:05/14site:lt deltroute:IMdose:1mlD.HAY Valentin Doris Melanie DO, Doris Echo CompleteBy: Fast DO, Maggie A On: 28-Dec-2015 Intent B 12 Injection, 1000 mcg (J3420)By: On: 05-Dec-2015 Intent Fast DO, Maggie A Comments: Lot:[id number]:12/13Dose:1mlRoute:IMSite:r arm Given By:SAADIA signed Echo CompleteBy: Fast DO, Maggie A On: 05-Dec-2015 Intent Radiology - Chest- PA and LatBy: On: 07-Sep-2015 Intent Fast DO, Maggie A B 12 Injection, 1000 mcg (J3420)By: On: 19-Aug-2015 Intent Fast DO, Maggie A Comments: Lot:[id number]:04/14Dose:1mlRoute:IMSite:l armGiven By:SAADIA signed Aerosol Treatment (99956)By: Fast On: 03-Aug-2015 Intent DO, Maggie A B 12 Injection, 1000 mcg (J3420)By: On: 17-May-2015 Intent Fast DO, Maggie A Comments: Lot:[id number]:11/12Dose:1mlRoute:IMSite:l armGiven By:JKMVIS signed Flu Vaccine (Quadrivalent) [id number]: On: 17-May-2015 Intent Maggie Tracey DO Comments: lot [id number]: 01/26/2016site/route L sol, IMamt 0.5mlVIS and ABN signed when applicableChelsea, CMAFM4 ADMINISTRATION OF INFLUENZA VIRUS On: 17-May-2015 Intent VACCINE (G0008)By: Maggie Tracey DO B 12 Injection, 1000 mcg (J3420)By: On: 15-Feb-2015 Intent Kanika Georges Comments: Lot:[id number]:11.16Route:IMSite:R deltoidDose: 1 mLgiven by: Kanika Georges CMA DANIEL (Ankle Brachial Index) On: 08-Feb-2015 Intent (35801)By: Maggie Tracey DO Radiology - Lumbar SpineBy: Alexy KEBEDE, On: 08-Feb-2015 Intent Maggie Armstrong Ultrasound - ThyroidBy: Alexy KEBEDE, On: 09-Nov-2014 Intent Maggie Armstrong B 12 Injection, 1000 mcg (J3420)By: On: 09-Nov-2014 Intent Maggie Tracey DO Comments: lot [id number] mcgleft dltdIMas, EQUAL OPPORTUNITY REPRESENTATIVE Radiology - Chest- PA and LatBy: On: 13-Sep-2014 Intent Maggie Tracey DO Comments: call stat Pulse Oximetry (05192)By: Alexy KEBEDE, On: 13-Sep-2014 Intent Maggie Armstrong Comments: 97% Inhaler Demonstration (25446)By: On: 07-Sep-2014 Intent Kimberley Loyd CNP Radiology - Chest- PA and LatBy: On: 14-Jul-2014 Intent Maggie Tracey DO Comments: call rsults Spirometry (53489)By: Alexy KEBEDE, On: 14-Jul-2014 Intent Maggie Armstrong Comments: good effort and curve mild rest /obst Prevnar 13 (18135)By: Alexy KEEBDE, On: 30-Jun-2014 Intent Maggie Armstrong Comments: lot [id number] 09/2015location L armroute imgiven by - msmithVIS and/or ABN signed MAMMOGRAM, SCREENING, BOTH BREAST On: 14-Apr-2014 Intent (15199)By: Fast DO, Maggie A B 12 Injection, 1000 mcg (J3420)By: On: 14-Apr-2014 Intent Fast DO Maggie A Comments: Lot #:[id number] date:mount given:1mlRoute: IMSite given: left deltoidGiven by: HAY Zavala Cartoid DopplerBy: Alexy DO Maggie A On: 14-Apr-2014 Intent Eprescribed prescriptions (G8553)By: On: 07-Oct-2013 Intent Alexy DO Maggie A DXA, BONE DENSITY, AXIAL SKELETON On: 20-Jul-2013 Intent (82329)By: Alexy DO Maggie A Comments: aug Pelvic and Breast, Medicare On: 20-Jul-2013 Intent (G0101)By: Alexy DOCameliaa A Cartoid DopplerBy: Fast DO, Maggie A On: 07-Jul-2013 Intent Eprescribed prescriptions (G8553)By: On: 07-Jul-2013 Intent Raiza Ortiz FLU VAC, SPLIT, >3 YEARS, INTRAMUSC On: 04-May-2013 Intent (63643)By: Mraitza Cantor Comments: lot [id number] 2014site/route L sol, IMamt 0.5mlVIS and ABN signed when applicableChelsea, [facility] INFLUENZA VIR[facility] On: 04-May-2013 Intent VACCINE (G0008)By: Maritza Cantor Radiology - Hip - LeftBy: Alexy KEBEDE, On: 07-Apr-2013 Intent Maggie A Eprescribed prescriptions (G8553)By: On: 07-Apr-2013 Intent Raiza Ortiz Eprescribed prescriptions (G8553)By: On: 05-Jan-2013 Intent Raiza rOtiz Spirometry (58755)By: Alexy KEBEDE, On: 01-Dec-2012 Intent Maggie A Comments: good effort and curve normal Radiology - Chest- PA and LatBy: On: 01-Dec-2012 Intent Alexy KEBEDE Maggie A Comments: stat call wet read Eprescribed prescriptions (G8553)By: On: 01-Dec-2012 Intent Raiza Ortiz Pulse Oximetry (70622)By: Angel, On: 01-Dec-2012 Intent Raiza Comments: 98% Eprescribed prescriptions (G8553)By: On: 27-Nov-2012 Intent Melanie DO, Doris Melanie DO, Doris Melanie DO, Doris MAMMOGRAM, SCREENING, BOTH BREASTS On: 29-Sep-2012 Intent (92652)By: Alexy KEBEDE Maggie A EKG (97356)By: Raiza Ortiz On: 29-Sep-2012 Intent Comments: ekg- 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 axis and no acute st t wave changes Eprescribed prescriptions (G8553)By: On: 29-Sep-2012 Intent Raiza Ortiz Eprescribed prescriptions (G8553)By: On: 03-Sep-2012 Intent Raiza Ortiz Eprescribed prescriptions (G8553)By: On: 30-Jul-2012 Intent Raiza Ortiz B 12 Injection, 1000 mcg (J3420)By: On: 23-Jun-2012 Intent Maggie Tracey DO A Comments: Lot:[id number]:Dose:1mlRoute:IMSite:L armGiven By:SAADIA signed Eprescribed prescriptions (G8553)By: On: 23-Jun-2012 Intent Raiza Ortiz B 12 Injection, 1000 mcg (J3420)By: On: 25-Mar-2012 Intent Maricruz Rivera LPN Comments: Lot #[id number]-06/10Site-right deltoidDose-1 mlgiven by: Dani Rivera LPN Eprescribed prescriptions (G8553)By: On: 25-Mar-2012 Intent Maggie Tracey DO A FLU VAC, SPLIT, >3 YEARS, INTRAMUSC On: 25-Mar-2012 Intent (59226)By: Patsy Leslie LPN Comments: Lot/Exp: [id number], 12/2011Given in L Dltd, IMPrefilled SyringeBy CARYN Garner ADMINISTRATION OF INFLUENZA VIRUS On: 25-Mar-2012 Intent VACCINE (G0008)By: Patsy Leslie LPN Echo CompleteBy: Alexy KEBEDE Maggie A On: 07-Dec-2011 Intent B 12 Injection, 1000 mcg (J3420)By: On: 07-Dec-2011 Intent [address]atsy [address] LPN CT - OtherBy: Maggie Tracey DO On: 03-Oct-2011 Intent Comments: get cta of carotid arteries TDAP VACCINE >7 IM (59476)By: On: 03-Oct-2011 Intent Raiza Ortiz B 12 Injection, 1000 mcg (J3420)By: On: 07-Sep-2011 Intent Raiza Ortiz Comments: Lot #[id number]-12/12Site-left deltoidDose-1 mlgiven by: Dani Rivera LPN Cartoid DopplerBy: Maggie Tracey DO On: 07-Sep-2011 Intent Comments: in september DXA, BONE DENSITY, AXIAL SKELETON On: 07-Sep-2011 Intent ([id number])By: Maggie Tracey DO MAMMOGRAM, SCREENING, BOTH BREASTS On: 07-Sep-2011 Intent (62005)By: Maggie Tracey DO Aerosol Treatment (14930)By: Ciesa On: 08-Aug-2011 Intent CASINO GAMING INSPECTOR, Briana EKG (23571)By: Raiza Ortiz On: 06-Jun-2011 Intent Comments: ekg showed normal sinus rhythym, left axis, no acute st/t wave changes DXA, BONE DENSITY, AXIAL SKELETON On: 06-Jun-2011 Intent (61147)By: Maggie Tracey DO FLU VAC, SPLIT, >3 YEARS, INTRAMUSC On: 11-May-2011 Intent (56037)By: Maricruz Rivera LPN Comments: Lot #[id number]-62/20/Site-left deltoidgiven by: Dani Rivera LPN B 12 Injection, 1000 mcg (J3420)By: On: 11-May-2011 Intent Maricruz Rivera LPN Comments: Lot #[id number]-3/13Site-right deltoidDose-1 mlgiven by: Dani Rivera LPN ADMINISTRATION OF INFLUENZA VIRUS On: 11-May-2011 Intent VACCINE (G0008)By: Maricruz Rivera LPN B 12 Injection, 1000 mcg (J3420)By: On: 05-Mar-2011 Intent Maggie Tracey DO Comments: Lot #1234Exp-3/13Site-left deltoidDose-1 mlgiven by: Dani Rivera LPN Eprescribed prescriptions (G8553)By: On: 05-Mar-2011 Intent Maggie Tracey DO B 12 Injection, 1000 mcg (J3420)By: On: 07-Feb-2011 Intent Thelma Khan LPN Comments: 1ml given im lt dltd lot [id number] exp 10-08 Doppler Ultrasound OtherBy: Alexy KEBEDE, On: 24-Jan-2011 Intent Maggie A Comments: stat right leg- call wet read B 12 Injection, 1000 mcg (J3420)By: On: 24-Oct-2010 Intent Maggie Tracey DO Comments: Lot #:[id number] date:mount given:1mlRoute: IMSite given:left deltoidGiven by: HAY Zavala Cartoid DopplerBy: Maggie Tracey DO On: 24-Oct-2010 Intent Pap Smear, Medicare ([id number])By: On: 05-Sep-2010 Intent Raiza Ortiz Pelvic and Breast, Medicare On: 05-Sep-2010 Intent ([id number])By: Raiza Ortiz PNEUM VAC ADLT/IMUMNOSPR, SBC/INTRM On: 03-Jul-2010 Intent ([id number])By: Maggie Tracey DO Comments: Lot #[id number]/3/12Site-left deltoidDose- 0.5mlgiven by:[facility]MINISTRATION OF PNEUMOCOCCAL On: 03-Jul-2010 Intent VACCINE ([id number])By: Maggie Tracey DO MAMMOGRAM, SCREENING, BOTH BREASTS On: 03-Jul-2010 Intent ([id number])By: Maggie Tracey DO B 12 Injection, 1000 mcg ([id number])By: On: 20-Jun-2010 Intent Maggie Tracey DO Comments: Lot #[id number]-left deltoidDose-1 mlgiven by:[facility] [facility] B 12 Injection, 1000 mcg (J3420)By: On: 10-May-2010 Intent Apoorva Calle Comments: Lot:[id number]:12Dose:1000mcg/1mlRoute:IMSite:right deltoid Given by: HAY Birch FLU VAC, SPLIT, >3 YEARS, INTRAMUSC On: 10-May-2010 Intent ([id number])By: Apoorva Calle Comments: Lot:[id number] 4PExp:10/2010Dose:0.5mlRoute:IMSite:Left Deltoid Given by: HAY Birch ADMINISTRATION OF INFLUENZA VIRUS On: 10-May-2010 Intent VACCINE ([id number])By: Apoorva Calle Doppler Ultrasound OtherBy: Alexy KEBEDE, On: 12-Apr-2010 Intent Maggie A Comments: both legs stat- left leg swelling- call wet read Spirometry ([id number])By: Alexy KEBEDE, On: 12-Apr-2010 Intent Maggie A Comments: good effort and curve normal B 12 Injection, 1000 mcg ([id number])By: On: 05-Apr-2010 Intent Maggie Tracey DO Ultrasound - GallbladderBy: Alexy KEBEDE, On: 01-Feb-2010 Intent Maggie A IV Needle placement ([id number])By: On: 10-Jan-2010 Intent Ana Guzman Comments: IV 22 gauge inserted in right antecubital on first attempt and 0.9 NSS running without difficulty-AW INFUSION, NORMAL SALINE SOLUTION , On: 10-Jan-2010 Intent 1000 CC (Special Coverage Instructions Apply. See MCM: 2049) ([id number])By: Kimberley Loyd CNP THER/PROPH/DIAG INJ, SC/IM On: 10-Jan-2010 Intent ([id number])By: Kimberley Loyd CNP Radiology - Knee - Right - Weight On: 03-Jan-2010 Intent BearingBy: Maggie Tracey DO EKG ([id number])By: Raiza Ortiz On: 03-Jan-2010 Intent Comments: ekg showed normal sinus rhythym, left axis, no acute st/t wave changes Aerosol Treatment ([id number])By: Evert On: 19-Oct-2009 Intent Kimberley LOVE Cartoid DopplerBy: Maggie Tracey DO On: 14-Jun-[address] - Brain/HeadBy: Maggie Tracey DO On: 06-Jun-2009 Intent MAMMOGRAM, SCREENING, BOTH BREASTS On: 06-Jun-2009 Intent ([id number])By: Maggie Tracey DO DXA, BONE DENSITY, AXIAL SKELETON On: 06-Jun-2009 Intent ([id number])By: Fast DO, Maggie A FLU VAC, SPLIT, >3 YEARS, INTRAMUSC On: 12-May-2009 Intent ([id number])By: Maricruz Rivera LPN Comments: Lot #[id number]-[id number] deltoidgiven by:[facility] ADMINISTRATION OF INFLUENZA VIRUS On: 12-May-2009 Intent VACCINE ([id number])By: Maricruz Rivera LPN Radiology - Hand - RightBy: Alexy DO, On: 26-Jan-2009 Intent Maggie A Radiology - Wrist - RightBy: Fast On: 26-Jan-2009 Intent DO, Maggie A Comments: call wet read Pulse Oximetry ([id number])By: Alexy DO, On: 27-Dec-2008 Intent Maggie A Comments: 98 Inhaler Demo ([id number])By: Alexy KEBEDE, On: 27-Dec-2008 Intent Maggie A Spirometry ([id number])By: Alexy KEBEDE, On: 27-Dec-2008 Intent Maggie A Comments: good effort and curve has small airways diminished Radiology - Chest- PA and LatBy: On: 27-Dec-2008 Intent Fast DO, Maggie A Echo CompleteBy: Fast DO, Maggie A On: 08-Nov-2008 Intent Comments: elevated bp - increase patricia EKG ([id number])By: Fast DO Mgagie A On: 08-Nov-2008 Intent Comments: ekg showed normal sinus rhythym, leftl axis, no acute st/t wave changes rsr unchanged Bio Z ([id number])By: Fast DO Maggie A On: 08-Nov-2008 Intent Inhaler Demo ([id number])By: Melanie KEBEDE, On: 02-Sep-2008 Intent Doris Jay DO, DO, Kathleen Aerosol Treatment ([id number])By: Melanie On: 02-Sep-2008 Intent Doris KEBEDE DO, Kathleen Comments: less echoey -- better less cough Doris Navarro DO EKG ([id number])By: Doris Navarro DO On: 16-Dec-2007 Intent Doris Navarro DO, DO, Comments: NSR NO ACUTE CHANGES Doris Son 12 Injection, 1000 mcg ([id number])By: On: 13-Nov-2007 Intent Thelma Khan LPN Comments: 1000mcg/ml 1 ml given im lt dltd lot [id number] exp 07-06. Pt tolerated well. B 12 Injection, 1000 mcg (J3420)By: On: 30-Jul-2007 Intent Melanie DO, Doris Melanie DO, Doris Melanie DO, Doris EXCISION BGN LSN TRNK/ARM/LEG On: 09-Jul-2007 Intent 0.6-1.0 CM ([id number])By: Kimberley Loyd CNP BIOPSY OF SKIN LESION, SINGLE On: 09-Jul-2007 Intent ([id number])By: Kimberley Loyd CNP SHAVE SKIN LESION, TRUNK/ARM/LEG On: 02-Jul-2007 Intent ([id number])By: Kimberley Loyd CNP BIOPSY OF SKIN LESION, SINGLE On: 02-Jul-2007 Intent ([id number])By: Kimberley Loyd CNP B 12 Injection, 1000 mcg (J3420)By: On: 02-Jul-2007 Intent Lashonda Lee LPN FLU VAC, SPLIT, >3 YEARS, INTRAMUSC On: 04-Jun-2007 Intent ([id number])By: Jing Cabello RN Comments: Lot #: [id number] date: 01/03Amount given: 0.5 MLRoute: IMSite given: Left deltoidGiven by: Nathaniel Beal LPN IMMUNIZ ADMNIN, 1 VAC, SNGL/COMBO On: 04-Jun-2007 Intent ([id number])By: Jing Cabello RN B 12 Injection, 1000 mcg (J3420)By: On: 04-Jun-2007 Intent Jing Cabello RN B 12 Injection, 1000 mcg (J3420)By: On: 01-May-2007 Intent Shara Castro Comments: given in ldt, 1cc, lot# [id number], exp.12.04 B 12 Injection, 1000 mcg (J3420)By: On: 11-Apr-2007 Intent Ana Guzman Comments: B12 injection given 1cc im in left deltoid lot # [id number]. B 12 Injection, 1000 mcg (J3420)By: On: 17-Mar-2007 Intent Ana Guzman Comments: given in left deltoid 1cc lot#[id number] exp. B 12 Injection, 1000 mcg (J3420)By: On: 11-Mar-2007 Intent Melanie DO, Doris Melanie DO, Comments: CHANGE TO MONTHLY NOWOUT OF B12 PT COMING IN TOMORROW Doris Jay DO B 12 Injection, 1000 mcg (J3420)By: On: 25-Feb-2007 Intent Thelma Khan Comments: doneinj 1000mcg/ml 1 ml given im lt deltoid lot [id number] exp 10-04. B 12 Injection, 1000 mcg (J3420)By: On: 11-Feb-2007 Intent Raiza Ortiz Comments: Lot #:[id number] date:11/04Amount given:1mlRoute: IMSite given:leftGiven by: HAY Zavala B 12 Injection, 1000 mcg (J3420)By: On: 04-Feb-2007 Intent Lashonda Lee LPN B 12 Injection, 1000 mcg (J3420)By: On: 28-Jan-2007 Intent Melanie DO, Doris Melanie DO, Doris Melanie DO, Doris Ultrasound - GallbladderBy: Melanie On: 18-Oct-2006 Intent DO, Doris Melanie DO, Doris Melanie DO, Doris INFUSION, NORMAL SALINE SOLUTION , On: 18-Oct-2006 Intent 250 CC (Special Coverage Comments: GAVE 1 LITER Instructions Apply. See MCM: 2049) ([id number])By: Melanie DO, Doris Melanie DO, Doris Melanie DO, Doris IV Infusion ([id number])By: Melanie DO, On: 18-Oct-2006 Intent Doris Melanie DO, Doris Melanie DO, Doris EKG ([id number])By: Tali Navarro DOhleen On: 10-Oct-2006 Intent Melanie DO, Doris Melanie DO, Comments: NSR T WAVE INVERSIONS V1-V3 Doris Planned Medications INFUSION, NORMAL SALINE SOLUTION , 1000 CC Ordered: 02-Aug-2017 Pending Melanie DO, Doris Melanie DO, Doris Melanie DO, Doris INFUSION, NORMAL SALINE SOLUTION , 1000 CC Ordered: 01-Aug-2017 Pending Marcia Britton INJECTION, METHYLPREDNISOLONE SODIUM SUCCINATE, UP TO 125 MG Ordered: 20-Aug-2016 Pending Melanie DO, Doris Melanie DO, Doris Melanie DO, Doris INJECTION, METHYLPREDNISOLONE SODIUM SUCCINATE, UP TO 125 MG Ordered: 16-Aug-2016 Pending Melanie DO, Doris Melanie DO, Doris Melanie DO, Doris INJECTION, METHYLPREDNISOLONE SODIUM SUCCINATE, UP TO 125 MG Ordered: 20-Jul-2016 Pending Melanie DO, Doris Melanie DO, Doris Melanie DO, Doris Vitamin B-12 1000 MCG/ML Injection Solution Ordered: 06-Apr-2016 Pending Melanie DO, Doris Melanie DO, Doris Melanie DO, Doris Vitamin B-12 1000 MCG/ML Injection Solution Ordered: 13-Apr-2016 Pending Homero Mckinley Vitamin B-12 1000 MCG/ML Injection Solution Ordered: 20-Apr-2016 Pending Melanie DO, Doris Melanie DO, Doris Melanie DO, Doris Vitamin B-12 1000 MCG/ML Injection Solution Ordered: 27-Apr-2016 Pending Melanie DO, Doris Melanie DO, Doris Melanie DO, Doris Vitamin B-12 1000 MCG/ML Injection Solution Ordered: 04-May-2016 Pending Visit, Nurse Vitamin B-12 1000 MCG/ML Injection Solution Ordered: 08-May-2016 Pending Melanie DO, Doris Melanie DO, Doris Melanie DO, Doris Vitamin B-12 1000 MCG/ML Injection Solution Ordered: 11-May-2016 Pending Melanie DO, Doris Melanie DO, Doris Melanie DO, Doris Vitamin B-12 1000 MCG/ML Injection Solution Ordered: 18-May-2016 Pending Melanie DO, Doris Melanie DO, Doris Melanie DO, Doris Vitamin B-12 1000 MCG/ML Injection Solution Ordered: 29-May-2016 Pending Melanie DO, Doris Melanie DO, Doris Melanie DO, Doris Vitamin B-12 1000 MCG/ML Injection Solution Ordered: 30-Mar-2016 Pending Melanie DO, Doris Melanie DO, Doris Melanie DO, Doris Vitamin B-12 1000 MCG/ML Injection Solution Ordered: 20-Jul-2016 Pending Melanie DO, Doris Melanie DO, Doris Melanie DO, Doris Vitamin B-12 1000 MCG/ML Injection Solution Ordered: 20-Aug-2016 Pending Melanie DO, Doris Melanie DO, Doris Melanie DO, Doris Vitamin B-12 1000 MCG/ML Injection Solution Ordered: 20-Sep-2016 Pending Melanie DO, Doris Melanie DO, Doris Melanie DO, Doris Vitamin B-12 1000 MCG/ML Injection Solution Ordered: 31-Dec-2016 Pending Melanie DO, Doris Melanie DO, Doris Melanie DO, Doris Vitamin B-12 1000 MCG/ML Injection Solution Ordered: 14-Mar-2017 Pending Melanie DO, Doris Melanie DO, Doris Melanie DO, Doris Vitamin B-12 1000 MCG/ML Injection Solution Ordered: 25-Apr-2017 Pending Melanie DO, Doris Melanie DO, Doris Melanie DO, Doris Vitamin B-12 1000 MCG/ML Injection Solution Ordered: 21-May-2016 Pending Melanie DO, Doris Melanie DO, Doris Melanie DO, Doris Vitamin B-12 1000 MCG/ML Injection Solution Ordered: 10-May-2010 Pending Apoorva Calle Vitamin B-12 1000 MCG/ML Injection Solution Ordered: 22-Mar-2016 Pending Melanie DO, Doris Melanie DO, Doris Melanie DO, Doris Vitamin B-12 1000 MCG/ML Injection Solution Ordered: 09-Mar-2016 Pending Melanie DO, Doris Melanie DO, Doris Melanie DO, Doris Vitamin B-12 1000 MCG/ML Injection Solution Ordered: 20-Jun-2010 Pending Fast DO, Maggie A Vitamin B-12 1000 MCG/ML Injection Solution Ordered: 24-Oct-2010 Pending Fast DO, Maggie A Vitamin B-12 1000 MCG/ML Injection Solution Ordered: 07-Feb-2011 Pending Thelma Khan LPN Vitamin B-12 1000 MCG/ML Injection Solution Ordered: 05-Mar-2011 Pending Fast DO, Maggie A Vitamin B-12 1000 MCG/ML Injection Solution Ordered: 11-May-2011 Pending Maricruz Rivera LPN Vitamin B-12 1000 MCG/ML Injection Solution Ordered: 07-Sep-2011 Pending Raiza Ortiz Vitamin B-12 1000 MCG/ML Injection Solution Ordered: 07-Dec-2011 Pending Anuj EQUAL OPPORTUNITY REPRESENTATIVEPatsy Vitamin B-12 1000 MCG/ML Injection Solution Ordered: 25-Mar-2012 Pending Miguel EQUAL OPPORTUNITY REPRESENTATIVEMaricruz Vitamin B-12 1000 MCG/ML Injection Solution Ordered: 23-Jun-2012 Pending Fast DO, Maggie A Vitamin B-12 1000 MCG/ML Injection Solution Ordered: 14-Apr-2014 Pending Fast DO, Maggie A Vitamin B-12 1000 MCG/ML Injection Solution Ordered: 09-Nov-2014 Pending Fast DO, Maggie A Vitamin B-12 1000 MCG/ML Injection Solution Ordered: 15-Feb-2015 Pending Destini Kanika Vitamin B-12 1000 MCG/ML Injection Solution Ordered: 17-May-2015 Pending Fast DO, Maggie A Vitamin B-12 1000 MCG/ML Injection Solution Ordered: 19-Aug-2015 Pending Fast DO, Maggie A Vitamin B-12 1000 MCG/ML Injection Solution Ordered: 05-Dec-2015 Pending Fast DO, Maggie A Vitamin B-12 1000 MCG/ML Injection Solution Ordered: 26-Jan-2016 Pending Melanie DO, Doris Melanie DO, Doris Melanie DO, Doris Vitamin B-12 1000 MCG/ML Injection Solution Ordered: 07-Feb-2016 Pending Melanie DO, Doris Melanie DO, Doris Melanie DO, Doris Vitamin B-12 1000 MCG/ML Injection Solution Ordered: 17-Feb-2016 Pending Melanie DO, Doris Melanie DO, Doris Melanie DO, Doris Vitamin B-12 1000 MCG/ML Injection Solution Ordered: 24-Feb-2016 Pending Melanie DO, Doris Melanie DO, Doris Melanie DO, Doris Vitamin B-12 1000 MCG/ML Injection Solution Ordered: 16-Mar-2016 Pending Melanie DO, Doris Melanie DO, Doris Melanie DO, Doris Vitamin B-12 1000 MCG/ML Injection Solution Ordered: 21-Nov-2017 Pending Melanei DO, Doris Melanie DO, Doris Melanie DO, Doris Instructions Name Dates Details BMI 36.0-36.9,adult : How to access health information online Indication: BMI 36.0-36.9,adult BMI 36.0-36.9,adult : How to access health information online - Detail Indication: BMI 36.0-36.9,adult Sore throat : Patient Instructions Indication: Sore throat Nonsmoker : How to access health information online Indication: Nonsmoker Nonsmoker : How to access health information online - Detail Indication: Nonsmoker Nonsmoker : Patient Instructions Indication: Nonsmoker BMI 34.0-34.9,adult : How to access health information online Indication: BMI 34.0-34.9,adult BMI 34.0-34.9,adult : How to access health information online - Detail Indication: BMI 34.0-34.9,adult BMI 34.0-34.9,adult : Patient Instructions Indication: BMI 34.0-34.9,adult Fatty liver : How to access health information online Indication: Fatty liver Fatty liver : How to access health information online - Detail Indication: Fatty liver Fatty liver : Patient Instructions Indication: Fatty liver BMI 36.0-36.9,adult : How to access health information online Indication: BMI 36.0-36.9,adult BMI 36.0-36.9,adult : How to access health information online - Detail Indication: BMI 36.0-36.9,adult BMI 36.0-36.9,adult : Patient Instructions Indication: BMI 36.0-36.9,adult Nonsmoker : How to access health information online Indication: Nonsmoker Nonsmoker : How to access health information online - Detail Indication: Nonsmoker Nonsmoker : Patient Instructions Indication: Nonsmoker BMI 36.0-36.9,adult : How to access health information online - Detail Indication: BMI 36.0-36.9,adult BMI 36.0-36.9,adult : How to access health information online Indication: BMI 36.0-36.9,adult Right hip pain : Patient Instructions Indication: Right hip pain Nonsmoker : How to access health information online Indication: Nonsmoker Nonsmoker : How to access health information online - Detail Indication: Nonsmoker Nonsmoker : Patient Instructions Indication: Nonsmoker Body mass index 36.0-36.9, adult : How to access health information online Indication: Body mass index 36.0-36.9, adult Body mass index 36.0-36.9, adult : How to access health information online - Detail Indication: Body mass index 36.0-36.9, adult Body mass index 36.0-36.9, adult : Patient Instructions Indication: Body mass index 36.0-36.9, adult Nonsmoker : How to access health information online Indication: Nonsmoker Nonsmoker : How to access health information online - Detail Indication: Nonsmoker Nonsmoker : Patient Instructions Indication: Nonsmoker Nonsmoker : How to access health information online Indication: Nonsmoker Nonsmoker : How to access health information online - Detail Indication: Nonsmoker Nonsmoker : Patient Instructions Indication: Nonsmoker Nonsmoker : How to access health information online Indication: Nonsmoker Nonsmoker : How to access health information online - Detail Indication: Nonsmoker Nonsmoker : Patient Instructions Indication: Nonsmoker HEART DISEASE, NOS : cardiovascular counseling Indication: HEART DISEASE, NOS Uncontrolled type II diabetes mellitus : obesity counseling Indication: Uncontrolled type II diabetes mellitus Uncontrolled type II diabetes mellitus : How to access health information online Indication: Uncontrolled type II diabetes mellitus Uncontrolled type II diabetes mellitus : How to access health information online - Detail Indication: Uncontrolled type II diabetes mellitus Uncontrolled type II diabetes mellitus : Patient Instructions Indication: Uncontrolled type II diabetes mellitus Nonsmoker : How to access health information online Indication: Nonsmoker Nonsmoker : How to access health information online - Detail Indication: Nonsmoker Nonsmoker : Patient Instructions Indication: Nonsmoker Vitamin B 12 deficiency : How to access health information online Indication: Vitamin B 12 deficiency Vitamin B 12 deficiency : How to access health information online - Detail Indication: Vitamin B 12 deficiency Vitamin B 12 deficiency : Patient Instructions Indication: Vitamin B 12 deficiency Nonsmoker : How to access health information online Indication: Nonsmoker Nonsmoker : How to access health information online - Detail Indication: Nonsmoker Nonsmoker : Patient Instructions Indication: Nonsmoker Nonsmoker : How to access health information online Indication: Nonsmoker Nonsmoker : How to access health information online - Detail Indication: Nonsmoker Nonsmoker : Patient Instructions Indication: Nonsmoker Nonsmoker : How to access health information online Indication: Nonsmoker Nonsmoker : How to access health information online - Detail Indication: Nonsmoker Nonsmoker : Patient Instructions Indication: Nonsmoker Nonsmoker : How to access health information online Indication: Nonsmoker Nonsmoker : How to access health information online - Detail Indication: Nonsmoker Nonsmoker : Patient Instructions Indication: Nonsmoker Nonsmoker : How to access health information online Indication: Nonsmoker Nonsmoker : How to access health information online - Detail Indication: Nonsmoker Nonsmoker : Patient Instructions Indication: Nonsmoker BMI 34.0-34.9,adult : How to access health information online Indication: BMI 34.0-34.9,adult BMI 34.0-34.9,adult : How to access health information online - Detail Indication: BMI 34.0-34.9,adult BMI 34.0-34.9,adult : Patient Instructions Indication: BMI 34.0-34.9,adult Abnormal lung sounds : How to access health information online - Detail Indication: Abnormal lung sounds Abnormal lung sounds : How to access health information online Indication: Abnormal lung sounds Abnormal lung sounds : Patient Instructions Indication: Abnormal lung sounds Benign essential hypertension (Renamed from Benign essential HTN) : How to access health information online Indication: Benign essential hypertension (Renamed from Benign essential HTN) Benign essential hypertension (Renamed from Benign essential HTN) : How to access health information online - Detail Indication: Benign essential hypertension (Renamed from Benign essential HTN) Benign essential hypertension (Renamed from Benign essential HTN) : Patient Instructions Indication: Benign essential hypertension (Renamed from Benign essential HTN) Uncontrolled type II diabetes mellitus : How to access health information online Indication: Uncontrolled type II diabetes mellitus Uncontrolled type II diabetes mellitus : How to access health information online - Detail Indication: Uncontrolled type II diabetes mellitus Uncontrolled type II diabetes mellitus : Patient Instructions Indication: Uncontrolled type II diabetes mellitus Benign essential hypertension (Renamed from Benign essential HTN) : cardiovascular counseling Indication: Benign essential hypertension (Renamed from Benign essential HTN) Uncontrolled type II diabetes mellitus : obesity counseling Indication: Uncontrolled type II diabetes mellitus Other anxiety states : Patient Instructions Indication: Other anxiety states Chronic fatigue : Patient Instructions Indication: Chronic fatigue Other anxiety states : How to access health information online Indication: Other anxiety states Other anxiety states : How to access health information online - Detail Indication: Other anxiety states Other anxiety states : Patient Instructions Indication: Other anxiety states Uncontrolled type II diabetes mellitus : How to access health information online Indication: Uncontrolled type II diabetes mellitus Uncontrolled type II diabetes mellitus : How to access health information online - Detail Indication: Uncontrolled type II diabetes mellitus Uncontrolled type II diabetes mellitus : Patient Instructions Indication: Uncontrolled type II diabetes mellitus Chronic cough : How to access health information online Indication: Chronic cough Chronic cough : How to access health information online - Detail Indication: Chronic cough Chronic cough : Patient Instructions Indication: Chronic cough Diabetes mellitus type 2, controlled : How to access health information online Indication: Diabetes mellitus type 2, controlled Diabetes mellitus type 2, controlled : How to access health information online - Detail Indication: Diabetes mellitus type 2, controlled Diabetes mellitus type 2, controlled : Patient Instructions Indication: Diabetes mellitus type 2, controlled Upper Respiratory Infection : How to access health information online Indication: Upper Respiratory Infection Upper Respiratory Infection : How to access health information online - Detail Indication: Upper Respiratory Infection Upper Respiratory Infection : Patient Instructions Indication: Upper Respiratory Infection Bronchitis : How to access health information online Indication: Bronchitis Bronchitis : How to access health information online - Detail Indication: Bronchitis Bronchitis : Patient Instructions Indication: Bronchitis Acute bronchitis : Patient Instructions Indication: Acute bronchitis Mixed hyperlipidemia : Patient Instructions Indication: Mixed hyperlipidemia Diabetes mellitus type 2, controlled : Patient Instructions Indication: Diabetes mellitus type 2, controlled Limb pain : Patient Instructions Indication: Limb pain Diabetes mellitus type 2, controlled : Patient Instructions Indication: Diabetes mellitus type 2, controlled Viral infection : How to access health information online Indication: Viral infection Viral infection : How to access health information online - Detail Indication: Viral infection Viral infection : Patient Instructions Indication: Viral infection Wheezing (Renamed from Asthmatic breathing) : Patient Instructions Indication: Wheezing (Renamed from Asthmatic breathing) Chronic cough : Patient Instructions Indication: Chronic cough Encounter for Medicare annual wellness exam : Patient Instructions Indication: Encounter for Medicare annual wellness exam Neoplasm of uncertain behavior of skin : How to access health information online Indication: Neoplasm of uncertain behavior of skin Neoplasm of uncertain behavior of skin : How to access health information online - Detail Indication: Neoplasm of uncertain behavior of skin Neoplasm of uncertain behavior of skin : Patient Instructions Indication: Neoplasm of uncertain behavior of skin Mixed hyperlipidemia : How to access health information online Indication: Mixed hyperlipidemia Mixed hyperlipidemia : How to access health information online - Detail Indication: Mixed hyperlipidemia Diabetes mellitus type 2, controlled : Patient Instructions Indication: Diabetes mellitus type 2, controlled Diabetes mellitus type 2, controlled : Patient Instructions Indication: Diabetes mellitus type 2, controlled Diabetes mellitus type 2, controlled : Patient Instructions Indication: Diabetes mellitus type 2, controlled Encounter for Medicare annual wellness exam : Patient Instructions Indication: Encounter for Medicare annual wellness exam Diabetes mellitus type 2, controlled : Patient Instructions Indication: Diabetes mellitus type 2, controlled Diabetes mellitus type 2, controlled : Patient Instructions Indication: Diabetes mellitus type 2, controlled BMI 37.0-37.9, adult : obesity counseling Indication: BMI 37.0-37.9, adult Diabetes mellitus type 2, controlled : Patient Instructions Indication: Diabetes mellitus type 2, controlled SOB (shortness of breath) on exertion : Patient Instructions Indication: SOB (shortness of breath) on exertion Bronchitis : Patient Instructions Indication: Bronchitis Allergic rhinitis : Patient Instructions Indication: Allergic rhinitis BMI 36.0-36.9,adult : obesity counseling Indication: BMI 36.0-36.9,adult Diabetes mellitus type 2, controlled : Patient Instructions Indication: Diabetes mellitus type 2, controlled Other malaise and fatigue : Patient Instructions Indication: Other malaise and fatigue Other malaise and fatigue : Patient Instructions Indication: Other malaise and fatigue Limb pain : Patient Instructions Indication: Limb pain Edema (Renamed from Accumulation of fluid in tissues) : Patient Instructions Indication: Edema (Renamed from Accumulation of fluid in tissues) Diabetes mellitus type 2, controlled : Patient Instructions Indication: Diabetes mellitus type 2, controlled Cerebral infarction, unspecified : Patient Instructions Indication: Cerebral infarction, unspecified Cerebral infarction, unspecified : Patient Instructions Indication: Cerebral infarction, unspecified Upper respiratory infection (Renamed from Infection of the upper respiratory tract) : Patient Instructions Indication: Upper respiratory infection (Renamed from Infection of the upper respiratory tract) Uncontrolled type II diabetes mellitus : Patient Instructions Indication: Uncontrolled type II diabetes mellitus Encounters Office Visit On: 14-Apr-2018 14:46 Encounter Reason: Cough - Cough onset was 4 day(s) ago. Note for Cough: Symptoms started 5 days ago with cough-green, stuffy nose, sore throat. ??No fever or chills, headache, ear pain or pressure, ??SOB, wheezing, CP. End: 14-Apr-2018 15:26 Tried Mucinex and that didn't help. History of asthmaEncounter Diagnosis: Nonsmoker, BMI 36.0-36.9,adult, Sore throat, Abnormal lung sounds, Cough, Bronchitis [facility] Phone Encounter On: 10-Apr-2018 9:37 Encounter Diagnosis: Arthritis End: 10-Apr-2018 9:45 [facility] Phone Encounter On: 07-Apr-2018 17:33 Encounter Diagnosis: Abnormal TSH End: 07-Apr-2018 17:41 [facility] Office Visit On: 20-Feb-2018 12:57 Encounter Reason: Follow up tests - Date: (02.10.18).Encounter Diagnosis: Nonsmoker, Nutritional counseling, Elevated liver enzymes, Abnormal TSH, Fatty liver, Insomnia, controlled End: 20-Feb-2018 13:37 [facility] Visit On: 13-Feb-2018 11:00 Encounter Reason: Follow up tests - Date: (02/10/18 labs)., [ADDITIONAL REASON] Follow up hospital - Reason for ER visit: note: (went in last for double vi End: 13-Feb-2018 11:46 blas). The patient feels well with minor complaints and has decreased energy level. Patient has been compliant with instructions. Current medication use: no side effects and compliant with dosing regimen. Nutrition: balanced diet. Encounter Diagnosis: BMI 34.0-34.9,adult, Nonsmoker, Cerebral infarction, unspecified, Double vision, Uncontrolled type II diabetes mellitus, Abnormal TSH, Elevated liver enzymes, Nutritional counseling [facility] Visit On: 12-Dec-2017 12:18 Encounter Reason: Follow up, Diagnostic Procedure Results - Diagnostic tests include ultrasound (11-25-17) and other (lab 11-21-17). Date: (as written).Encounter Diagnosis: BMI 36.0-36.9,adult, Elevated liver enzymes, Fatty liver, Nonsmoker, End: 12-Dec-2017 12:51 Nutritional counseling [facility] Office Visit On: 21-Nov-2017 10:56 Encounter Reason: Follow up tests - Date: (11/14/17 labs).Encounter Diagnosis: Nonsmoker, BMI 36.0-36.9,adult, Muscle stiffness, Medication side effect, Abnormal TSH, Hyperglycemia, Vitamin B 12 deficiency, Elevated liver enzymes End: 21-Nov-2017 12:05 [facility] Visit On: 14-Nov-2017 10:30 Encounter Reason: Joint PainEncounter Diagnosis: BMI 36.0-36.9,adult, Nonsmoker, Right hip pain, Depressed mood, Muscle stiffness End: 14-Nov-2017 11:08 [facility] Visit On: 28-Oct-2017 11:07 Encounter Reason: Hip Problem - This condition occurred without any known injury. Symptoms include hip problem. The symptoms are located in the right anterior hip. The patient describes the hip problem as hip pain, hip s End: 28-Oct-2017 14:46 tiffness, decreased range of motion, difficulty bearing weight and difficulty ambulating. Onset was sudden 1 week(s) ago. Symptoms are relieved by rest (not painful while sitting). Associated symptoms i nclude numbness in the leg (sometimes, after standing or walking for long periods of time.). Note for Hip problem: Symptoms started over a week ago with left hip pain when walking. Pain is described a s sharp and achy. No pain with sitting, or going from sitting to standing position. Some numbness in left thigh but does not stay very long. Pain is only when applying pressure to leg. Takes celebrex on a daily basis, arthritis OTC, tylenol medications-no relief. No ice or heat therapy. No injury, no bruising, swelling, reddness or warmth. States she was moving furniture last week-pushing it with her leg.Encounter Diagnosis: BMI 36.0-36.9,adult, Right hip pain, Nonsmoker, Impaired gait and mobility [facility] Annotation/Addendum On: 24-Oct-2017 15:02 Encounter Diagnosis: Benign essential hypertension (Renamed from Benign essential HTN), Abnormal blood chemistry End: 24-Oct-2017 15:13 [facility] Annotation/Addendum On: 21-Oct-2017 8:30 Encounter Diagnosis: UTI (urinary tract infection) End: 21-Oct-2017 10:48 [facility] Office Visit On: 15-Oct-2017 12:11 Encounter Reason: Fatigue - No changes in management were made at the last visit. Symptoms include fatigue and depressed mood. Onset was sudden., [ADDITIONAL REASON] Depression - Onset was gradual. There is no known event that preceded symptom on End: 15-Oct-2017 14:41 set. The patient is not currently being treated for this problem. Encounter Diagnosis: Body mass index 36.0-36.9, adult, Nonsmoker, Exhaustion, Depressed mood, Insomnia, controlled, Urinary frequency [facility] Annotation/Addendum On: 07-Oct-2017 13:00 Encounter Diagnosis: Vitamin D deficiency, unspecified, Other and unspecified hyperlipidemia, Other anxiety states, Benign essential hypertension (Renamed from Benign essential HTN) End: 07-Oct-2017 13:10 [facility] Visit On: 08-Aug-2017 14:32 Encounter Reason: Follow up acute care visit - The patient feeling better since last seen and improving. Patient has been compliant with instructions. Current medication use: compliant with dosing regimen. Patient sleeps End: 08-Aug-2017 15:19 7 hours per night. Impact of disease: emotional impact-moderate. Nutrition: balanced diet and supplemental vitamins. The medical issues the patient is following up for include URI.Encounter Diagnosis: Bronchitis, Body mass index 36.0-36.9, adult, Abnormal lung sounds, Sinusitis, bacterial [facility] Office Visit On: 07-Aug-2017 11:05 Encounter Reason: Follow up acute care visit - The patient does not feel well. Patient has been compliant with instructions. Current medication use: no side effects and compliant with dosing regimen.Encounter Diagnosis: End: 07-Aug-2017 17:10 Body mass index 36.0-36.9, adult, Nonsmoker, Cough, Sinusitis, bacterial, Abnormal lung sounds, Bronchitis [facility] Visit On: 02-Aug-2017 8:49 Encounter Reason: Follow up acute care visit - The patient does not feel well and feels the same. Patient has been compliant with instructions. Current medication use: no side effects and compliant with dosing regimen.Encounter Diagnosis: End: 02-Aug-2017 12:52 BMI 36.0-36.9,adult, Nonsmoker, Dehydration, Conjunctivitis, left eye, Bronchitis [facility] Office Visit On: 01-Aug-2017 11:19 Encounter Reason: Upper Respiratory Infection (URI) - No changes in management were made at the last visit. Symptoms include nasal congestion, runny nose, scratchy throat and dry cough. Onset was sudden 1 week(s) ago.Encounter Diagnosis: End: 01-Aug-2017 15:05 BMI 36.0-36.9,adult, Nonsmoker, Cough, Bronchitis, Depressed mood, Dehydration [facility] Office Visit On: 25-Apr-2017 11:29 Encounter Reason: Annual Medicare Exam - The patient had reviewed and updated the family history, medication/s, past medical history and social history. Yes the patient did have a mini mental status exam done today. The End: 25-Apr-2017 15:11 activities of daily living the patient needs help with are none. The patient has driven in past 6 months, fallen in the past 6 months and put area rugs through house, but the patient has not had fecal i ncontinence, had urinary incontinence, missed or ran out of medications to soon, gotten lost, has a medalert necklace or bracelet or put handrails in bathroom. The patient has completed the following pr eventative measures: PAP smear, mammography and colonoscopy. 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 Other providers contributing to the patient's care are other:., [ADDITIONAL REASON] Follow up for chronic medical issues - The patient feels well with minor complaints, has decreased energy level and is sleeping well. Current medication use: no side effects. Chemo hinojosa sleeps 7 hours per night. Nutrition: balanced diet and supplemental vitamins. The medical issues the patient is following up for include All identified problems below, blood sugar issues, depression, high blood pressure, high cholesterol and other. Encounter Diagnosis: Uncontrolled type II diabetes mellitus, Mixed hyperlipidemia, Vitamin B 12 deficiency, Aortic stenosis, mild, Benign essential hypertension (Renamed from Benign essential HTN), Acquired hypothyroidism, Vitamin D deficiency, unspecified, MGUS (monoclonal gammopathy of unknown significance), Bilateral carotid artery stenosis, HEART DISEASE, NOS (429.9), Encounter for annual general medical examination with abnormal findings in adult, Encounter for screening mammogram for breast cancer (Renamed from Encounter for screening mammogram for malignant neoplasm of breast), Encounter for screening for malignant neoplasm of colon (Renamed from Special screening for malignant neoplasms, colon), Postmenopausal (Renamed from Postmenopausal status), Influenza vaccination declined (Renamed from Refused influenza vaccine) [facility] Office Visit On: 14-Mar-2017 11:34 Encounter Reason: Transition into care - The patient is transitioning into care from a hospital (A week ago sun I fell down 13 steps at home. I was at [facility] for 3 days in ICU I broke 2 ribs and fx small bone in lt wris End: 14-Mar-2017 13:49 t and smoe chips in the lt wrist) and a summary of care was reviewed.Encounter Diagnosis: BMI 35.0-35.9,adult, Nonsmoker, Fall down steps, initial encounter, Hypertensive urgency, Closed fracture of multiple ribs with routine healing, unspecified laterality, subsequent encounter, Closed fracture of distal end of left ulna with routine healing, unspecified fracture morphology, subsequent encounter, Trauma of soft tissue of neck, initial encounter, Vitamin B 12 deficiency [facility] Phone Encounter On: 11-Feb-2017 9:56 Encounter Diagnosis: Therapeutic drug monitoring End: 11-Feb-2017 10:23 [facility] Office Visit On: 31-Dec-2016 10:08 Encounter Reason: Follow up tests - Date: (12/18/16)., [ADDITIONAL REASON] Follow up for chronic medical issues - The patient does not feel well, has decre End: 31-Dec-2016 11:03 ased energy level and is sleeping well. Patient has been compliant with instructions. Current medication use: no side effects and compliant with dosing regimen. Patient sleeps 9 hours per night. Nutriti on: balanced diet and supplemental vitamins. The medical issues the patient is following up for include All identified problems below, high blood pressure and high cholesterol. Encounter Diagnosis: BMI 35.0-35.9,adult, Nonsmoker, Vitamin B 12 deficiency, Diabetes mellitus type 2, controlled, Insomnia, controlled, Benign essential hypertension (Renamed from Benign essential HTN), Acquired hypothyroidism, Aortic stenosis, mild, Vitamin D deficiency, unspecified, Other and unspecified hyperlipidemia, Other anxiety states [facility] Office Visit On: 04-Oct-2016 10:50 Encounter Reason: Follow up HypertensionEncounter Diagnosis: BMI 35.0-35.9,adult, Nonsmoker, Benign essential hypertension (Renamed from Benign essential HTN), Insomnia, controlled End: 04-Oct-2016 14:50 [facility] Phone Encounter On: 26-Sep-2016 12:43 Encounter Diagnosis: Arthritis End: 26-Sep-2016 12:45 [facility] Phone Encounter On: 24-Sep-2016 16:32 Encounter Diagnosis: Benign essential hypertension (Renamed from Benign essential HTN) End: 24-Sep-2016 16:40 [facility] Office Visit On: 20-Sep-2016 11:27 Encounter Reason: Follow up tests - Date: (09/17/16 labs)., [ADDITIONAL REASON] Follow up for chronic medical issues - The patient does not feel well, has decre End: 20-Sep-2016 14:53 ased energy level and is sleeping well. Patient has been compliant with instructions. Current medication use: no side effects and compliant with dosing regimen. Patient sleeps 9 hours per night. Nutriti on: balanced diet and supplemental vitamins. The medical issues the patient is following up for include All identified problems below, high blood pressure and high cholesterol. Encounter Diagnosis: BMI 35.0-35.9,adult, Nonsmoker, Other and unspecified hyperlipidemia, Uncontrolled type II diabetes mellitus, Anemia due to vitamin B12 deficiency, unspecified B12 deficiency type, Nutritional counseling, Vitamin B 12 deficiency, Vitamin D deficiency, unspecified, Aortic stenosis, mild, Fatty liver, Acquired hypothyroidism, Benign essential hypertension (Renamed from Benign essential HTN), Chronic fatigue, MGUS (monoclonal gammopathy of unknown significance) [facility] Visit On: 24-Aug-2016 10:00 Encounter Reason: Follow up acute care visit - The patient feeling better since last seen. Patient has been compliant with instructions. Current medication use: no side effects and compliant with dosing regimen.Encounter Diagnosis: End: 24-Aug-2016 12:21 BMI 34.0-34.9,adult, Nonsmoker, Nausea, Bronchitis, Abnormal lung sounds, Cough, Shortness of breath at rest, Medication side effect [facility] Visit On: 20-Aug-2016 10:34 Encounter Reason: Follow up acute care visit - The patient feeling better since last seen. Patient has been compliant with instructions. Current medication use: no side effects and compliant with dosing regimen. Nutrition: balanced diet. End: 20-Aug-2016 11:24 Encounter Diagnosis: BMI 34.0-34.9,adult, Nonsmoker, Abnormal lung sounds, Bronchitis, Flu-like symptoms, Anemia due to vitamin B12 deficiency, unspecified B12 deficiency type [facility] Visit On: 16-Aug-2016 9:34 Encounter Reason: Cough - No changes in management were made at the last visit. Symptoms include cough and runny nose. The cough is described as hacking. Cough onset was sudden. There is no known event that preceded symp End: 16-Aug-2016 12:00 marleny onset. The cough occurs constantly. Symptoms are described as moderate in severity and worsening. The patient is not currently being treated for this problem.Encounter Diagnosis: BMI 34.0-34.9,adult, Nonsmoker, Cough, Abnormal lung sounds, Bronchitis, Shortness of breath at rest [facility] Visit On: 03-Aug-2016 9:12 Encounter Diagnosis: Nonsmoker, BMI 34.0-34.9,adult, Bronchitis, Other vitamin B12 deficiency anemia, Cough, Shortness of breath at rest, Uncontrolled type II diabetes mellitus End: 03-Aug-2016 9:48 [facility] Visit On: 20-Jul-2016 10:06 Encounter Reason: Edema, [ADDITIONAL REASON] Cold Symptoms - Onset was 4 day(s) ago. Encounter Diagnosis: BMI 35.0-35.9,adult, Nonsmoker, Flu-like symptoms, Shortness of breath at rest, Edema (Renamed from Accumulation of fluid in tissues), Cough, End: 20-Jul-2016 12:49 Abnormal lung sounds, Bronchitis, Other vitamin B12 deficiency anemia [facility] Visit On: 29-May-2016 10:26 Encounter Reason: Skin Lesions - Onset was sudden.Encounter Diagnosis: Arthritis, Need for prophylactic vaccination and inoculation against influenza, Other vitamin B12 deficiency anemia, Skin lesion End: 30-May-2016 14:37 [facility] Visit On: 21-May-2016 12:04 Encounter Reason: Skin Lesions - Onset was sudden.Encounter Diagnosis: Uncontrolled type II diabetes mellitus, Nonsmoker, Benign essential hypertension (Renamed from Benign essential HTN), Nutritional counseling, Body mass index 36.0-36.9, adult, End: 21-May-2016 13:00 Insomnia, controlled, Vitamin B 12 deficiency [facility] Visit On: 18-May-2016 11:52 Encounter Reason: Nurse procedure visit - The symptoms have been associated with other (B12).Encounter Diagnosis: Vitamin B 12 deficiency End: 21-May-2016 9:35 [facility] Visit On: 11-May-2016 10:22 Encounter Reason: Injections - The medication the patient is here to receive is vitamin B12 IM.Encounter Diagnosis: Vitamin B 12 deficiency End: 11-May-2016 11:00 [facility] Visit On: 08-May-2016 9:16 Encounter Reason: Follow up for chronic medical issues - The patient feels well with minor complaints, has good energy level and is sleeping well. Patient has been compliant with instructions. Current medication use: no End: 08-May-2016 13:51 side effects and compliant with dosing regimen. Patient sleeps 7 hours per night. Nutrition: balanced diet and no supplemental vitamins & iron. The medical issues the patient is following up for inc lude All identified problems below, blood sugar issues, high blood pressure and high cholesterol.Encounter Diagnosis: Vitamin B 12 deficiency, Benign essential hypertension (Renamed from Benign essential HTN), Nonsmoker, Uncontrolled type II diabetes mellitus, Vitamin D deficiency, unspecified, Other malaise and fatigue, Skin lesion, Aortic stenosis, mild, Depression, unspecified depression type [facility] Visit On: 04-May-2016 13:17 Encounter Reason: Injections - The medication the patient is here to receive is vitamin B12 IM.Encounter Diagnosis: Vitamin B 12 deficiency End: 04-May-2016 16:35 [facility] Visit On: 27-Apr-2016 13:14 Encounter Reason: Injections - The medication the patient is here to receive is vitamin B12 IM.Encounter Diagnosis: Vitamin B 12 deficiency End: 27-Apr-2016 14:26 [facility] Visit On: 20-Apr-2016 11:01 Encounter Reason: Injections - The medication the patient is here to receive is vitamin B12 IM.Encounter Diagnosis: Vitamin B 12 deficiency End: 20-Apr-2016 14:48 [facility] Visit On: 13-Apr-2016 13:59 Encounter Reason: Nurse procedure visit - The symptoms have been associated with other (B12).Encounter Diagnosis: Vitamin B 12 deficiency End: 13-Apr-2016 14:52 [facility] Visit On: 09-Apr-2016 11:32 Encounter Reason: Annual Medicare Exam - The patient had reviewed and updated the family history, medication/s, past medical history and social history. Yes the patient did have a mini mental status exam done today. The End: 09-Apr-2016 12:41 activities of daily living the patient needs help with are none. The patient has driven in past 6 months, but the patient has not had fecal incontinence, had urinary incontinence, missed or ran out of m edications to soon, fallen in the past 6 months, gotten lost, has a medalert necklace or bracelet, put area rugs through house or put handrails in bathroom. The patient has completed the following preve ntative measures: PAP smear (?), mammography (not anymore) and colonoscopy (no). 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 The patient has noticed nothing from the geriatic depres blas scale. Other providers contributing to the patient's care are other:.Encounter Diagnosis: Annual Medicare Phyiscal WITHOUT abnormal findings (Renamed from Encounter for general adult medical examination without abnormal findings), Postmenopausal (Renamed from Postmenopausal status), Encounter for screening mammogram for breast cancer (Renamed from Encounter for screening mammogram for malignant neoplasm of breast), Encounter for screening for malignant neoplasm of colon (Renamed from Special screening for malignant neoplasms, colon), Uncontrolled type II diabetes mellitus, Benign essential hypertension (Renamed from Benign essential HTN), Body mass index 38.0-38.9, adult, Nonsmoker [facility] Visit On: 06-Apr-2016 10:56 Encounter Reason: Injections - The medication the patient is here to receive is vitamin B12 IM.Encounter Diagnosis: Vitamin B 12 deficiency End: 06-Apr-2016 12:40 [facility] Visit On: 30-Mar-2016 11:38 Encounter Reason: Injections - The medication the patient is here to receive is vitamin B12 IM.Encounter Diagnosis: Vitamin B 12 deficiency End: 30-Mar-2016 16:50 [facility] Visit On: 22-Mar-2016 12:15 Encounter Reason: Skin Lesions - Onset was sudden.Encounter Diagnosis: Vitamin B 12 deficiency, Allergic reaction to chemical substance, Infection of skin of finger End: 22-Mar-2016 13:14 [facility] Visit On: 16-Mar-2016 10:07 Encounter Reason: Injections - The medication the patient is here to receive is vitamin B12 IM.Encounter Diagnosis: Vitamin B 12 deficiency End: 18-Mar-2016 12:34 [facility] Visit On: 09-Mar-2016 10:58 Encounter Reason: Anxiety, [ADDITIONAL REASON] Skin Lesions - Onset was sudden. Encounter Diagnosis: Anemia due to vitamin B12 deficiency, unspecified B12 deficiency type, Other anxiety states, Infection of skin of finger, End: 09-Mar-2016 11:29 Allergic reaction to chemical substance [facility] Visit On: 24-Feb-2016 11:51 Encounter Reason: Injections - The medication the patient is here to receive is vitamin B12 IM.Encounter Diagnosis: Other vitamin B12 deficiency anemia End: 26-Feb-2016 20:43 [facility] Visit On: 17-Feb-2016 9:50 Encounter Reason: Injections - The medication the patient is here to receive is vitamin B12 IM.Encounter Diagnosis: Other vitamin B12 deficiency anemia End: 17-Feb-2016 10:36 [facility] Visit On: 07-Feb-2016 10:16 Encounter Reason: Injections - The medication the patient is here to receive is vitamin B12 IM.Encounter Diagnosis: Other vitamin B12 deficiency anemia End: 08-Feb-2016 9:06 [facility] Visit On: 26-Jan-2016 11:57 Encounter Reason: AnxietyEncounter Diagnosis: Other anxiety states, Vitamin D deficiency, unspecified, Anemia due to vitamin B12 deficiency, unspecified B12 deficiency type, Chronic fatigue End: 26-Jan-2016 13:35 [facility] Visit On: 28-Dec-2015 10:00 Encounter Reason: Follow up hospital - Reason for ER visit: note: (chest pain and extreme fatigue). The patient feels well with minor complaints (pt feels better, some fatigue yet. Feels anxious.), has decreased energy l End: 28-Dec-2015 10:34 evel and is sleeping well. Patient has been compliant with instructions. Current medication use: no side effects and compliant with dosing regimen. Patient sleeps 7 hours per night. Note for Follow up hospital: bp is good and not having any more chest tightness she feels alot of anxiety they are doing a lot of work at homeEncounter Diagnosis: Other anxiety states, Chest discomfort, Benign essential hypertension (Renamed from Benign essential HTN) , Aortic stenosis, mild [facility] Visit On: 05-Dec-2015 13:34 Encounter Reason: Follow up for chronic medical issues - The patient does not feel well (feels alot of fatigue no enrgy has to sit down frequenlty and having chest tightness- hard to breath), has decreased energy level a End: 05-Dec-2015 22:16 nd is sleeping well. Patient has been compliant with instructions. Current medication use: no side effects, compliant with dosing regimen and considered effective by patient. Patient sleeps 12 hours per night. Nutrition: inappropriate diet and no supplemental vitamins & iron. The medical issues the patient is following up for include All identified problems below, blood sugar issues, cardiac issue s, depression, gastric reflux, high blood pressure and high cholesterol. Note for Follow up for chronic medical issues: feels poorly= no energy - when exerts get sob and this has gotten worse - has no ticed over last few months- and getting chest heavy- she saw vacular in jun and had artery check sugar up a bit and not getting her b12 done- no gerd, [ADDITIONAL REASON] Follow up, Laboratory Test Results - Date: (11/30/15). Encounter Diagnosis: Tachycardia, Other vitamin B12 deficiency anemia, Benign essential hypertension (Renamed from Benign essential HTN), Vitamin D deficiency, unspecified, Mixed hyperlipidemia, Gastric reflux, Fatty liver, Acquired hypothyroidism, Bilateral carotid artery stenosis, Polyclonal gammopathy, Chest discomfort, Uncontrolled type II diabetes mellitus [facility] Office Visit On: 07-Sep-2015 11:55 Encounter Reason: Cold Symptoms - Symptoms include hoarseness and dry cough, while symptoms do not include nasal congestion, runny nose, sore throat, productive cough, facial pressure, facial pain or headache. Onset was End: 08-Sep-2015 13:29 gradual 3 week(s) ago. The symptoms occur constantly. The patient describes this as unchanged. Associated symptoms include wheezing, shortness of breath and fatigue, while associated symptoms do not inc lude ear pain, nausea, vomiting, diarrhea or fever. The patient is not currently being treated for this problem. Note for Cold symptoms: she doesnt feels sick just when gets off prednsione she starts dry coughing and wheezing- has trouble with the inhalrs but has aersol machine at home that she feels is effective for herEncounter Diagnosis: Chronic cough [facility] Office Visit On: 19-Aug-2015 11:58 Encounter Reason: Follow up for chronic medical issues - The patient feels well with no complaints, has good energy level and is sleeping well. Patient has been compliant with instructions. Current medication use: no tim End: 21-Aug-2015 19:58 e effects, compliant with dosing regimen and considered effective by patient. Patient sleeps 8 (with benedryl and trazadone) hours per night. Nutrition: balanced diet (eating high protein diet) and no s upplemental vitamins & iron. The medical issues the patient is following up for include All identified problems below, blood sugar issues, cardiac issues, depression, gastric reflux, high blood pres sure and high cholesterol. Note for Follow up for chronic medical issues: she not watching diet and she off pravastatin and went to [place] and now on 5 mg of crestor- and tolerated she got leg pain and weakness on pravachol- - she got good [facility] [place]- --bp is good and cough gone and no gerd , [ADDITIONAL REASON] Follow up, Laboratory Test Results - Date: (08/03/15). Encounter Diagnosis: Diabetes mellitus type 2, controlled, Mixed hyperlipidemia, Other vitamin B12 deficiency anemia, Vitamin D deficiency, unspecified, Acquired hypothyroidism, Fatty liver, Gastric reflux, Carotid stenosis, MGUS (monoclonal gammopathy of unknown significance) [facility] Office Visit On: 03-Aug-2015 10:09 Encounter Reason: Cold Symptoms - Symptoms include nasal congestion, scratchy throat and facial pressure. Onset was 2 week(s) ago. Note for Cold symptoms: got better from last now getting again- alot of cough wheeze no fever- Encounter Diagnosis: End: 04-Aug-2015 22:00 Anemia, unspecified, Vitamin D deficiency, unspecified, Benign essential hypertension (Renamed from Benign essential HTN), Acquired hypothyroidism, Mixed hyperlipidemia, Diabetes mellitus type 2, controlled, Upper Respiratory Infection [facility] Phone Encounter On: 10-Jun-2015 16:12 Encounter Diagnosis: Anemia(285.9) End: 10-Jun-2015 16:17 [facility] Office Visit On: 08-Jun-2015 11:02 Encounter Reason: Follow up acute care visit - The patient worsening. Patient has been compliant with instructions. Current medication use: no side effects and compliant with dosing regimen.Encounter Diagnosis: Bronchitis End: 08-Jun-2015 17:14 [facility] Office Visit On: 06-Jun-2015 15:36 Encounter Reason: Cough - Symptoms include cough, chills, fever, runny nose, stuffy nose and sore throat. The cough is described as barky, brassy and non- productive. Cough onset was gradual. Symptoms are relieved by coug End: 06-Jun-2015 22:22 h medicine. Note for Cough: itchy watery eyes and not taking otc , [ADDITIONAL REASON] Follow up tests - Date: (just got in today). Encounter Diagnosis: Acute bronchitis, Allergic rhinitis, Other vitamin B12 deficiency anemia, Iron (Fe) deficiency anemia, Anxiety state, unspecified (300.00), Hypothyroidism [facility] Phone Encounter On: 20-May-2015 8:37 Encounter Diagnosis: Other vitamin B12 deficiency anemia End: 20-May-2015 8:44 [facility] Office Visit On: 17-May-2015 11:54 Encounter Reason: Follow up for chronic medical issues - The patient feels well with minor complaints (legs continue to ache- celebrex doesnt help anymore), has good energy level and is sleeping well. Patient has been co End: 17-May-2015 22:36 mpliant with instructions. Current medication use: no side effects, compliant with dosing regimen and considered effective by patient. Patient sleeps 8 (with benedryl and trazadone) hours per night. Nut rition: balanced diet (eating high protein diet) and no supplemental vitamins & iron. The medical issues the patient is following up for include All identified problems below, blood sugar issues, ca rdiac issues, depression, gastric reflux, high blood pressure and high cholesterol. Note for Follow up for chronic medical issues: says feels like cant get legs to relax- wonder if pravastatin- and ac hey at night and in day- and bp good and she need to watch chol way better as bad control no stroke sx no gerd and mood is good, [ADDITIONAL REASON] Follow up, Laboratory Test Results - Date: (04/2015). Encounter Diagnosis: Hyperlipidemia, Need for prophylactic vaccination and inoculation against influenza (Renamed from Need for immunization against influenza), Benign essential hypertension (Renamed from Benign essential HTN), Depressed mood, Gastric reflux, Diabetes mellitus type 2, controlled, Carotid stenosis, Vitamin B12 deficiency anemia (281.1), Hypothyroidism, Iron (Fe) deficiency anemia, CVA (434.91) [facility] Office Visit On: 15-Feb-2015 14:41 Encounter Reason: Follow up for chronic medical issues - The patient feels well with minor complaints (legs continue to bother her but has improved since off the crestor but cant afford the leg test that was ordered.), h End: 15-Feb-2015 22:11 as good energy level and is sleeping well. Patient has been compliant with instructions. Current medication use: no side effects, compliant with dosing regimen and considered effective by patient. Alexx dunn sleeps 8 (with benedryl and trazadone) hours per night. Nutrition: balanced diet (eating high protein diet) and no supplemental vitamins & iron. The medical issues the patient is following up for include All identified problems below, blood sugar issues, cardiac issues, depression, gastric reflux, high blood pressure and high cholesterol. Note for Follow up for chronic medical issues: she has improved leg pain but not gone has arhtritis didnt get daniel they wouldnt pay so not doing since better- she feels going off crestor helped, [ADDITIONAL REASON] Follow up, Laboratory Test Results - Date: (02/14/15). Encounter Diagnosis: DEPRESSIVE DISORDER, NOT ELSEWHERE CLASSIFIED (311.), Gerd (530.81), Benign essential hypertension (Renamed from Benign essential HTN), arthritis,unspecified (716.90), Diabetes type II,controlled no comp (250.00), Hypothyroidism (244.9), Other and unspecified hyperlipidemia, Vitamin B12 deficiency anemia (281.1), Fatty Liver (571.8), VITAMIN D DEFICIENCY, NOS (268.9), LOW BACK PAIN WITH RADICULOPATHY (724.4) [facility] Office Visit On: 08-Feb-2015 10:13 Encounter Reason: Leg pain - The leg pain began gradually over time and has been occurring for 4 weeks. The symptoms have been occurring in an increasing pattern. The symptoms are described as a dull ache and sharp, stab End: 08-Feb-2015 21:11 kunal pain and are mild to moderate in severity. The symptoms occur during the day. There is involvement of the lower extremities (both). There has been no associated chest pain, dyspnea or numbness and tingling in toes. Note for Leg pain: Pt is wondering if its not from the crestor?-- - not back pain but hurts to walk not to sit - left leg will occasionally go numb short time not weak no change in bowel or bladder celebrex some help Encounter Diagnosis: Limb pain (729.5) [facility] Office Visit On: 09-Nov-2014 9:36 Encounter Reason: Follow up for chronic medical issues - The patient feels well with no complaints, has good energy level and is sleeping well. Patient has been compliant with instructions. Current medication use: no tim End: 09-Nov-2014 13:25 e effects, compliant with dosing regimen and considered effective by patient. Patient sleeps 8 (with benedryl and trazadone) hours per night. Nutrition: balanced diet (eating high protein diet) and no s upplemental vitamins & iron. The medical issues the patient is following up for include All identified problems below, blood sugar issues, cardiac issues, depression, gastric reflux, high blood pres sure and high cholesterol. Note for Follow up for chronic medical issues: she started plexus a week ago and helping her energy already=- bpis good- not skipping thyroid but not taking 2 on saturday and not taking b12 and her mood is good an dno gerd and discussed diet and ex- no stroke sx, [ADDITIONAL REASON] Follow up, Laboratory Test Results - Date: (11/08/14). Encounter Diagnosis: Diabetes type II,controlled no comp (250.00), VITAMIN D DEFICIENCY, NOS (268.9), Vitamin B12 deficiency anemia (281.1), SOB (786.05), Wheezing (Renamed from Asthmatic breathing), Cough, Hypothyroidism (244.9), Hyperlipidemia (272.4), Gerd (530.81), Fatty Liver (571.8), DEPRESSIVE DISORDER, NOT ELSEWHERE CLASSIFIED (311.), THYROMEGALY (240.9) [facility] Office Visit On: 02-Nov-2014 11:53 Encounter Reason: Cold Symptoms - Onset was 1 week(s) ago.Encounter Diagnosis: Viral infection End: 02-Nov-2014 12:37 [facility] Phone Encounter On: 14-Sep-2014 15:16 Encounter Diagnosis: SOB (786.05) End: 14-Sep-2014 15:21 [facility] Office Visit On: 13-Sep-2014 9:48 Encounter Reason: Cough - Symptoms include cough, wheezing and runny nose, while symptoms do not include dyspnea, chills, fever, stuffy nose, sore throat or chest pain. The cough is described as wheezy and dry. Cough ons End: 13-Sep-2014 20:02 et was sudden 3 week(s) ago. The cough occurs constantly. Symptoms are described as moderate in severity. Note for Cough: has pneumonia- no fever no productive ??cough- just alot of draiange- says cant use proair due to drainage has nebulizer- - she doesnt think infection- Encounter Diagnosis: Wheezing (Renamed from Asthmatic breathing), Cough [facility] Office Visit On: 07-Sep-2014 10:18 Encounter Reason: Cough - The onset of the cough has been sudden. The cough is characterized as dry. The cough occurs all the time. The symptoms have been associated with runny nose, while the symptoms have not been ass End: 07-Sep-2014 11:19 ociated with fever, headache or wheezing.Encounter Diagnosis: Chronic cough, Post- nasal drainage [facility] Office Visit On: 14-Jul-2014 16:06 Encounter Reason: Follow up for chronic medical issues - The patient feels well with minor complaints (cough continues), has good energy level and is sleeping well. Patient has been compliant with instructions. Current m End: 15-Jul-2014 23:54 edication use: no side effects, compliant with dosing regimen and considered effective by patient. Patient sleeps 8 (with benedryl and trazadone) hours per night. Nutrition: balanced diet (eating high p rotein diet) and no supplemental vitamins & iron. The medical issues the patient is following up for include All identified problems below, blood sugar issues, cardiac issues, depression, gastric re flux, high blood pressure and high cholesterol. Note for Follow up for chronic medical issues: coughing no fever but little sob- no gerd weight up little so is sugar discussed this no gerd-mood good bp good , [ADDITIONAL REASON] Annual Medicare Exam - The patient had reviewed and updated the family history, medication/s, past medical history and social history. Yes the patient did have ( Alert) a mini mental status exam done today. The activities of daily living the patient needs help with are none. The patient has driven in past 6 months and put area rugs through house, but the patient has not had f ecal incontinence, had urinary incontinence, missed or ran out of medications to soon, fallen in the past 6 months, gotten lost, has a medalert necklace or bracelet or put handrails in bathroom. The pat levi has completed the following preventative measures: PAP smear (2011), mammography (2013) and colonoscopy (unsure of timing). 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 The damián ent has noticed nothing from the geriatic depression scale. Other providers contributing to the patient's care are other: (Opthmologist yearly). , [ADDITIONAL REASON] Follow up, Laboratory Test Results - Date: (07/13/14). , [ADDITIONAL REASON] Cough - The onset of the cough has been 3 weeks ago. The cough is characterized as dry. The amount of sputum produced is scanty. The cough occurs all the time. The symptoms are agg ravated by supine posture. The symptoms have been associated with headache, hoarseness and runny nose (yellow), while the symptoms have not been associated with fever, sore throat or wheezing. Encounter Diagnosis: Annual Medicare Physical (V70.0), Vitamin B12 deficiency anemia (281.1), DEPRESSIVE DISORDER, NOT ELSEWHERE CLASSIFIED (311.), Hypothyroidism (244.9), Diabetes type II,controlled no comp (250.00), Gerd (530.81), VITAMIN D DEFICIENCY, NOS (268.9), Hyperlipidemia (272.4), Fatty Liver (571.8), Wheezing (Renamed from Asthmatic breathing) [facility] Office Visit On: 30-Jun-2014 12:24 Encounter Reason: Follow up ER - Patient has been compliant with instructions. Current medication use: no side effects and compliant with dosing regimen. The patient feels well with minor complaints (pt is feeling better End: 01-Jul-2014 12:43 since going to the urgent care [facility]- on atb yet but will finish it tomorrow), has decreased energy level and is sleeping well. Patient sleeps 6 hours per night. Note for Follow up ER: feeling alot better has 2 days of antiobitics had uri and on zzpack- she also needs some med refills and to see whether alternative to celebrex for herEncounter Diagnosis: Osteoarthritis (715.96), HYPERTENSION, NOS (401.9), CVA (434.91), Upper respiratory infection (Renamed from Infection of the upper respiratory tract), Need for vaccination against Streptococcus pneumoniae [facility] Office Visit On: 07-May-2014 8:53 Encounter Reason: Skin LesionsEncounter Diagnosis: Lesion-Unknown behavior (238.2) End: 07-May-2014 13:15 [facility] Office Visit On: 14-Apr-2014 10:02 Encounter Reason: Follow up for chronic medical issues - The patient feels well with no complaints, has good energy level and is sleeping well. Patient has been compliant with instructions. Current medication use: no tim End: 19-Apr-2014 14:42 e effects, compliant with dosing regimen and considered effective by patient. Patient sleeps 8 (with benedryl and trazadone) hours per night. Nutrition: balanced diet (eating high protein diet) and no s upplemental vitamins & iron. The medical issues the patient is following up for include All identified problems below, blood sugar issues, cardiac issues, depression, gastric reflux, high blood pres sure and high cholesterol. Note for Follow up for chronic medical issues: keeping weight down pretty good and still feels good- bp is great- went to [facility] for vascular check and said ok- no progr ession of basilar artery stenosis and back one year - mood good and no gerd- had eye exam this year and good, [ADDITIONAL REASON] Follow up, Laboratory Test Results - Date: (04/05/14). Encounter Diagnosis: Diabetes type II,controlled no comp (250.00) , DEPRESSIVE DISORDER, NOT ELSEWHERE CLASSIFIED (311.), Hyperlipidemia (272.4), Gerd (530.81), Vitamin B12 deficiency anemia (281.1), Hypothyroidism (244.9), Carotid stenosis (433.10), VITAMIN D DEFICIENCY, NOS (268.9), screening [facility] Office Visit On: 06-Jan-2014 10:35 Encounter Reason: Follow up for chronic medical issues - The patient feels well with no complaints, has good energy level and is sleeping well. Patient has been compliant with instructions. Current medication use: no tim End: 06-Jan-2014 22:42 e effects, compliant with dosing regimen and considered effective by patient. Patient sleeps 8 (with benedryl and trazadone) hours per night. Nutrition: balanced diet (eating high protein diet) and no s upplemental vitamins & iron. The medical issues the patient is following up for include All identified problems below, blood sugar issues, cardiac issues, depression, gastric reflux, high blood pres sure and high cholesterol. Note for Follow up for chronic medical issues: she is losing weight still really eating well- bp is good she feels well- no stroke sx mood controlled has followup in [facility] issues soon- no chest pain and no gerd - no blood in stool or dark tarry stool, [ADDITIONAL REASON] Follow up tests - Date: (01/04/14 blood work). Encounter Diagnosis: HYPERTENSION, NOS (401.9), Hypothyroidism (244.9), Diabetes type II,controlled no comp (250.00), Vitamin B12 deficiency anemia (281.1), Gerd (530.81), Anemia(285.9), Hyperlipidemia (272.4), DEPRESSIVE DISORDER, NOT ELSEWHERE CLASSIFIED (311.), arthritis,unspecified (716.90), CVA (434.91) [facility] Phone Encounter On: 01-Jan-2014 13:14 Encounter Diagnosis: Other and unspecified hyperlipidemia, HYPERTENSION, NOS (401.9) End: 01-Jan-2014 14:05 [facility] Phone Encounter On: 19-Oct-2013 18:08 Encounter Diagnosis: Hypothyroidism (244.9) End: 19-Oct-2013 18:10 [facility] Office Visit On: 07-Oct-2013 10:54 Encounter Reason: Follow up for chronic medical issues - The patient feels well with no complaints, has good energy level and is sleeping well. Patient has been compliant with instructions. Current medication use: no tim End: 08-Oct-2013 22:19 e effects, compliant with dosing regimen and considered effective by patient. Patient sleeps 8 (with benedryl and trazadone) hours per night. Nutrition: balanced diet (eating high protein diet) and no s upplemental vitamins & iron. The medical issues the patient is following up for include All identified problems below, blood sugar issues, cardiac issues, depression, gastric reflux, high blood pres sure and high cholesterol. Note for Follow up for chronic medical issues: she is doing new program for weight loss- she lost 30pounds in 3months- and bp isgreat and she feels great and sugar better- really avoiding starch- and nothing hurts, [ADDITIONAL REASON] Follow up, Laboratory Test Results - Date: (10/01/13). Encounter Diagnosis: Diabetes type II,controlled no comp (250.00), HYPERTENSION, NOS (401.9), Other and unspecified hyperlipidemia, DEPRESSIVE DISORDER, NOT ELSEWHERE CLASSIFIED (311.), arthritis,unspecified (716.90), CVA (434.91), Hypothyroidism (244.9), VITAMIN D DEFICIENCY, NOS (268.9), Vitamin B12 deficiency anemia (281.1) [facility] Office Visit On: 18-Sep-2013 10:54 Encounter Reason: Nurse procedure visit - Reason for visit: other (weight check).[facility] End: 18-Sep-2013 11:13 Phone Encounter On: 04-Sep-2013 7:49 [facility] End: 04-Sep-2013 7:52 Office Visit On: 20-Jul-2013 8:37 Encounter Reason: Annual Medicare Exam - The patient had reviewed and updated the family history, medication/s, past medical history and social history. Yes the patient did have ( Alert) a mini mental status exam do End: 20-Jul-2013 22:23 ne today. The patient has not has a medalert necklace or bracelet. The patient has completed the following preventative measures: PAP smear (2011), mammography (2011) and colonoscopy (unsure of timing). 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 The patient has noticed lack of energy. Note for Annual Medicare Exam: colonsocopy 2006- no polyps- and doesnt want shingles vaccineEncounter Diagnosis: Annual Medicare Physical (V70.0), Well Woman Exam , Medicare (V76.2), Osteopenia [facility] Phone Encounter On: 13-Jul-2013 13:41 Encounter Diagnosis: Diabetes type II,controlled no comp (250.00) End: 13-Jul-2013 17:58 [facility] Office Visit On: 07-Jul-2013 11:21 Encounter Reason: Follow up for chronic medical issues - The patient feels well with minor complaints (feels draggy but thats from stroke and gaining weight), has decreased energy level and is sleeping well. Patient herrera End: 07-Jul-2013 12:20 s been compliant with instructions. Current medication use: no side effects, compliant with dosing regimen and considered effective by patient. Patient sleeps 8 (with benedryl and trazadone) hours per n ight. Nutrition: balanced diet (eating high protein diet) and no supplemental vitamins & iron. The medical issues the patient is following up for include All identified problems below, blood sugar i ssues, cardiac issues, depression, gastric reflux, high blood pressure and high cholesterol. Note for Follow up for chronic medical issues: weight up 7 pounds - eating bread and then going to bed-not taking bp at home-she isfeeling well - -the mood ok - she sometimes gets nervous and lonely when hubby travels but otherwsie ok- no stroke sx- no gerd , [ADDITIONAL REASON] Follow up, Laboratory Test Results - Date: (07/02/13). Encounter Diagnosis: Diabetes type II,controlled no comp (250.00), HYPERTENSION, NOS (401.9), Other and unspecified hyperlipidemia (272.4), Carotid stenosis (433.10), Vitamin B12 deficiency anemia (281.1), VITAMIN D DEFICIENCY, NOS (268.9) [facility] Phone Encounter On: 05-Jun-2013 15:03 Encounter Diagnosis: Unspecified Diagnosis End: 05-Jun-2013 15:04 [facility] Office Visit On: 04-May-2013 13:16 Encounter Reason: Injections - The medication the patient is here to receive is other (flu vaccine).Encounter Diagnosis: NEED FOR PROPHYLACTIC VACCINATION AND INOCULATION AGAINST INFLUENZA (V04.81) End: 04-May-2013 15:56 [facility] Office Visit On: 07-Apr-2013 11:17 Encounter Reason: Follow up for chronic medical issues - The patient feels well with minor complaints, has decreased energy level and is sleeping well. Patient has been compliant with instructions. Current medication use End: 07-Apr-2013 21:27 : no side effects, compliant with dosing regimen and considered effective by patient. Patient sleeps 8 (with benedryl and trazadone) hours per night. Nutrition: balanced diet (eating high protein diet) and no supplemental vitamins & iron. The medical issues the patient is following up for include All identified problems below, blood sugar issues, cardiac issues, depression, gastric reflux, high bl ood pressure and high cholesterol. Note for Follow up for chronic medical issues: weight down 3 pounds and bp is good and sugar is good- mood good and sleeping goood- little anxiety in afternoon if he r not home- no gerd - went to [place] for artery checks and doing ok there- ran out of vit d - hasnt been exercising becuase left hip hurts- hurts to walk, [ADDITIONAL REASON] Follow up, Laboratory Test Results - Date: (04/03/13). Encounter Diagnosis: Diabetes type II,controlled no comp (250.00), Pelvis/Thigh/Hip Pain (719.45), Carotid stenosis (433.10), VITAMIN D DEFICIENCY, NOS (268.9), Vitamin B12 deficiency anemia (281.1), Other and unspecified hyperlipidemia (272.4) [facility] Office Visit On: 05-Jan-2013 11:27 Encounter Reason: Follow up for chronic medical issues - The patient feels well with minor complaints ( OA flare in finger joints ??of both hands), has decreased energy level and is sleeping well. Patient has been compli End: 05-Jan-2013 12:12 ant with instructions. Current medication use: no side effects, compliant with dosing regimen and considered effective by patient. Patient sleeps 8 (with benedryl and trazadone) hours per night. Nutriti on: balanced diet (eating high protein diet) and no supplemental vitamins & iron. The medical issues the patient is following up for include All identified problems below, blood sugar issues, cardia c issues, depression, gastric reflux, high blood pressure and high cholesterol. Note for Follow up for chronic medical issues: she admits to not eating right and eating too much ice crreme and cookies her bp is good- she is doing sugary [employer] every moring and we discussed how that starts off her sugar cycle every day - is riding bike once in awhile- doesnt want to change mood meds- and b12 and v it d ok - dicussed sugar and chol - her right 2nd finger hard to bendEncounter Diagnosis: Diabetes type II,controlled no comp (250.00), DEPRESSIVE DISORDER, NOT ELSEWHERE CLASSIFIED (311.), ARTHRALGIAS 719.40, HYPERTENSION, NOS (401.9), Other and unspecified hyperlipidemia (272.4), Vitamin B12 deficiency anemia (281.1), Carotid stenosis (433.10), VITAMIN D DEFICIENCY, NOS (268.9), BMI 37.0-37.9, ADULT (V85.37), BRONCHITIS, NOT SPECIFIED ACUTE OR CHRONIC (490.), Urine, Abnormal (791.9), Anemia(285.9), Stress Reaction (308.4), Trigger index finger of right hand (727.03) [facility] Office Visit On: 01-Dec-2012 10:21 Encounter Reason: Follow up acute care visit - The patient does not feel well, has decreased energy level and worsening. Patient has been compliant with instructions. Current medication use: no side effects and compliant End: 01-Dec-2012 23:05 with dosing regimen. Patient sleeps 3 hours per night. The medical issues the patient is following up for include All identified problems below and URI. Note for Follow up acute care visit: Pt is cur rently on the [facility] from seeing Dr. Navarro last .-she is still coughing up green and sob and wheeze-not getting better- she isnt still taking zyrtec so needs to- but using nasal spray-not sure she has temp-Encounter Diagnosis: SOB (786.05), Chronic cough (786.2) [facility] Office Visit On: 27-Nov-2012 9:54 Encounter Reason: Sore Throat - Symptoms include sore throat, nasal congestion and swollen glands, while symptoms do not include postnasal drainage, fever or chills. The symptoms are symmetrical. There is no radiation. T End: 27-Nov-2012 10:27 he patient describes the pain as burning. Onset was sudden 1 day(s) ago. The symptoms occur constantly. The patient describes this as worsening. Associated symptoms include cough, while associated sympt oms do not include headache, ear pain, facial pain, nausea, vomiting or rash. The patient is not currently being treated for this problem. Note for Sore throat: no fever clear drainage sore throat is really feels like hard to swallow and quit allergy shots a year ago because they hurt her armEncounter Diagnosis: BRONCHITIS, NOT SPECIFIED ACUTE OR CHRONIC (490.) [facility] Office Visit On: 24-Nov-2012 10:02 Encounter Reason: Sore Throat - Symptoms include sore throat, nasal congestion and swollen glands, while symptoms do not include postnasal drainage, fever or chills. The symptoms are symmetrical. There is no radiation. T End: 24-Nov-2012 10:37 he patient describes the pain as burning. Onset was sudden 1 day(s) ago. The symptoms occur constantly. The patient describes this as worsening. Associated symptoms include cough, while associated sympt oms do not include headache, ear pain, facial pain, nausea, vomiting or rash. The patient is not currently being treated for this problem. Note for Sore throat: no fever clear drainage sore throat is really feels like hard to swallow and quit allergy shots a year ago because they hurt her armEncounter Diagnosis: DEPRESSIVE DISORDER, NOT ELSEWHERE CLASSIFIED (311.), Sore throat (462), Allergic rhinitis (477.9) [facility] Phone Encounter On: 01-Oct-2012 15:26 Encounter Diagnosis: Urine, Abnormal (791.9) End: 01-Oct-2012 15:27 [facility] Office Visit On: 29-Sep-2012 10:28 Encounter Reason: Follow up for chronic medical issues - The patient feels well with minor complaints (still lack of energy from cva but has greatly improved since april), has decreased energy level (but is improving) End: 29-Sep-2012 22:55 and is sleeping well. Patient has been compliant with instructions. Current medication use: no side effects, compliant with dosing regimen and considered effective by patient. Patient sleeps 8 (with sid edryl and trazadone) hours per night. Nutrition: balanced diet (eating high protein diet) and no supplemental vitamins & iron. The medical issues the patient is following up for include All identifi ed problems below, blood sugar issues, cardiac issues, depression, gastric reflux, high blood pressure and high cholesterol. Note for Follow up for chronic medical issues: Pt didnt bring her meds nor a list to go over them--bps at home running 140/70-80- she is feeling better in general- little fatigue at night- no swelling if takes lipitor q 3 days, [ADDITIONAL REASON] Follow up, Laboratory Test Results - Date: (09/22/12). Encounter Diagnosis: Benign essential hypertension (401.1), Vitamin B12 deficiency anemia (281.1), VITAMIN D DEFICIENCY, NOS (268.9), DEPRESSIVE DISORDER, NOT ELSEWHERE CLASSIFIED (311.), Carotid stenosis (433.10), Other and unspecified hyperlipidemia (272.4), Diabetes type II,controlled no comp (250.00), Urine, Abnormal (791.9), screening, BMI 36.0-36.9, ADULT (V85.36) [facility] Phone Encounter On: 11-Sep-2012 12:38 Encounter Diagnosis: Benign essential hypertension (401.1) End: 11-Sep-2012 12:41 [facility] Office Visit On: 03-Sep-2012 9:59 Encounter Reason: Follow up, Laboratory Test Results - Date: (08/30/12). Current symptoms/reason for visit include/s Symptoms include other (feeling good but has had some elevated bp's lately. [facility] increased her losartan End: 04-Sep-2012 23:07 to 100mg qd. Pt states anxiety seems to be better with adding wellbutrin.). Note for Follow up to discuss laboratory test results: she went back to [facility] Saw Dr Shruthi Quinones- ??head of stroke- diviison- had ct of arteries - having more energy and mood better but stillissues with bp cant get systolic under 130- 3 weeks ago increased losarten to 100Encounter Diagnosis: GENERAL SYMPTOMS; OTHER MALAISE AND FATIGUE (780.79), DEPRESSIVE DISORDER, NOT ELSEWHERE CLASSIFIED (311.), Benign essential hypertension (401.1), Chronic cough (786.2), VITAMIN D DEFICIENCY, NOS (268.9), Vitamin B12 deficiency anemia (281.1), Other and unspecified hyperlipidemia (272.4) [facility] Phone Encounter On: 01-Aug-2012 15:47 Encounter Diagnosis: Benign essential hypertension (401.1) End: 01-Aug-2012 15:53 [facility] Office Visit On: 30-Jul-2012 10:05 Encounter Reason: Fatigue - The onset of the fatigue has been sudden and has been occurring in a persistent pattern for 3 weeks. The course has been constant. The fatigue occurs all the time. The symptoms have been assoc End: 30-Jul-2012 10:34 iated with depression, while the symptoms have not been associated with chest pain, chills, insomnia or sleep disturbance. Note for Fatigue: she is tired all the time- is sleeping 8 hours- but wakes u p tired and worse thru day- not taking alprazalam in am- she thinks could be mood- she had to get rid of her two dogs couldnt take care of them- she is taking all her meds - swelling in arms and legs be tter- and she has been eating out alot think that is why bp up Encounter Diagnosis: GENERAL SYMPTOMS; OTHER MALAISE AND FATIGUE (780.79), Benign essential hypertension (401.1), Vitamin B12 deficiency anemia (281.1), Hypothyroidism (244.9), DEPRESSIVE DISORDER, NOT ELSEWHERE CLASSIFIED (311.) [facility] Office Visit On: 11-Jul-2012 12:10 Encounter Reason: Follow up tests - Diagnostic tests include other (labs). Date: (07/04/12). Follow up visit with no current symptoms. There is no family history of breast cancer, cardiovascular disease, cystic fibrosis, End: 11-Jul-2012 13:53 Down's syndrome, mental retardation or myocardial infarction before age 55. 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 The course has been constant. There has been no associated chest pain, dyspnea, fatigue, fever End: 04-Jul-2012 11:34 , hypertension or itching. Note for Edema: bilatteral hands and wrists, [ADDITIONAL REASON] Arthralgias - The last clinic visit was week(s) ago (several weeks of pain in toy ints, hip back shoulders wrists bilateraly Wake up every am with pain , push out of bed is painful). Note for Arthralgias: On celebrex but is not helpful Encounter Diagnosis: Limb pain (729.5), History of poliomyelitis (V12.02) [facility] Office Visit On: 02-Jul-2012 14:15 Encounter Reason: EdemaEncounter Diagnosis: Benign essential hypertension (401.1), CVA (434.91), Edema (782.3) End: 02-Jul-2012 15:14 [facility] Office Visit On: 30-Jun-2012 11:17 Encounter Reason: review medications - [facility] End: 30-Jun-2012 11:30 Office Visit On: 23-Jun-2012 11:21 Encounter Reason: Follow up for chronic medical issues - The patient feels well with minor complaints (- tingling in her left hand- since swelling this am and woke her up), has decreased energy level (but is improving) a End: 23-Jun-2012 22:46 nd is sleeping well. Patient has been compliant with instructions. Current medication use: no side effects, compliant with dosing regimen and considered effective by patient. Patient sleeps 8 (with bene dryl and trazadone) hours per night. Nutrition: balanced diet (eating high protein diet) and no supplemental vitamins & iron. The medical issues the patient is following up for include All identifie d problems below, blood sugar issues, cardiac issues, depression, gastric reflux, high blood pressure and high cholesterol. Note for Follow up for chronic medical issues: she thinks itching is nerves but doing better mood harper but still worrying- sleeping ok- and taking half a lipitor- and bp is good- stroke good done with therapy- ankles and hands swollen- ate corned beef on sat- avoid with salt- l ittle carpal tunnel hx and her hand hurt and was tingling and changes when changes position -not weak, [ADDITIONAL REASON] Follow up, Laboratory Test Results - Date: (06/09). Encounter Diagnosis: Diabetes type II,controlled no comp (250.00), Carotid stenosis (433.10), Hypothyroidism (244.9), Vitamin B12 deficiency anemia (281.1), Other and unspecified hyperlipidemia (272.4), VITAMIN D DEFICIENCY, NOS (268.9), Edema (782.3), Carpal Tunnel Syndrome(354.0) [facility] Office Visit On: 29-May-2012 12:12 Encounter Reason: Follow up hospital - Reason for ER visit: note: (stroke she was at [facility] x 5days released on saturday05/22/12 to 05/27/12). The patient feels well with minor complaints, has decreased energy End: 29-May-2012 14:12 level and is sleeping well. Patient has been compliant with instructions. Current medication use: compliant with dosing regimen. Patient sleeps 7 hours per night. Nutrition: balanced diet and supplement al vitamins. Note for Follow up hospital: [facility] Diagnosis: CVA (434.91), Benign essential hypertension (401.1), Diabetes type II,controlled no comp (250.00), Hypothyroidism (244.9), Carotid stenosis (433.10) [facility] Office Visit On: 22-May-2012 10:33 Encounter Reason: Follow up hospital - Reason for ER visit: note: (TIA. ??Patient was seen by [facility] ER x 3 times last week and then sent to [facility] for psych eval.). The patient does not feel well.Encounter Diagnosis: CVA (434.91) End: 26-May-2012 9:17 [facility] Office Visit On: 20-May-2012 8:52 Encounter Reason: Follow up ER - Reason for hospitalization note: (lightheadedness and weakness on left side). Patient has been compliant with instructions. Current medication use: no side effects and compliant with dosi End: 27-May-2012 22:24 ng regimen. The patient does not feel well, has decreased energy level and is sleeping well (after relaxes). 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 Onset was sudden 1 day End: 16-Apr-2012 10:44 (s) ago. Associated symptoms include wheezing, while associated symptoms do not include ear pain, shortness of breath, nausea, vomiting, diarrhea or fever. The patient is not currently being treated for this problem.Encounter Diagnosis: Upper respiratory infection (465.9), Allergic rhinitis (477.9) [facility] Office Visit On: 25-Mar-2012 10:48 Encounter Reason: Follow up tests - Date: (February 2012)., [ADDITIONAL REASON] Follow up for chronic medical issues - The patient feels well with minor complai End: 25-Mar-2012 22:00 nts, has decreased energy level (Just real sluggish) and is sleeping well. Patient has been compliant with instructions. Current medication use: no side effects, compliant with dosing regimen and consid ered effective by patient. Patient sleeps 8 (with benedryl and trazadone) hours per night. Nutrition: balanced diet (eating high protein diet) and no supplemental vitamins & iron. The medical issues the patient is following up for include All identified problems below, blood sugar issues, cardiac issues, depression, gastric reflux, high blood pressure and high cholesterol. Note for Follow up for chronic medical issues: gone off protein and up 30 pounds and doesnt feel well- getting more pain in knees and leg swelling with weight and bp and sugar are up and lacking energy becuase is eating out alot and alot of junk food- her mood would be better if she felt better Encounter Diagnosis: Type II Diabetes,uncontrolled (250.02), Need for prophylactic vaccination and inoculation against influenza (V04.81), VITAMIN D DEFICIENCY, NOS (268.9), Hypothyroidism (244.9), Benign essential hypertension (401.1), Limb pain (729.5), Other and unspecified hyperlipidemia (272.4), GENERAL SYMPTOMS; OTHER MALAISE AND FATIGUE (780.79), DEPRESSIVE DISORDER, NOT ELSEWHERE CLASSIFIED (311.), Fatty Liver (571.8), Vitamin B12 deficiency anemia (281.1) [facility] Office Visit On: 08-Feb-2012 10:01 Encounter Reason: Follow up ER - Reason for hospitalization note: (depression, anxiety ). Patient has been compliant with instructions. Current medication use: no side effects and compliant with dosing regimen. The patie End: 08-Feb-2012 10:41 nt does not feel well and has decreased energy level. Patient sleeps 8 hours per night. Impact of disease: emotional impact-moderate. Nutrition: balanced diet and supplemental vitamins.Encounter Diagnosis: Urticaria, allergic (708.0), Anxiety state, unspecified (300.00) [facility] Office Visit On: 07-Dec-2011 10:12 Encounter Reason: Follow up tests - Date: (November 2011)., [ADDITIONAL REASON] Follow up for chronic medical issues - The patient feels well with no complaints End: 07-Dec-2011 10:53 , has decreased energy level (I get tired after a day's work) and is sleeping well (with my medicines). Patient has been compliant with instructions. Current medication use: no side effects, compliant w ith dosing regimen and considered effective by patient. Patient sleeps 8 (with benedryl and trazadone) hours per night. Nutrition: balanced diet (eating high protein diet) and no supplemental vitamins & amp; iron. The medical issues the patient is following up for include All identified problems below, blood sugar issues, cardiac issues, depression, gastric reflux, high blood pressure and high choleste rol. Note for Follow up for chronic medical issues: went off the protein diet and gained 15 pounds back and feels depressed because she gained weight back but cant afford the diet so we talked about o ther options- she doesnt want more meds for mood- its more situational becuase she misses her - her ldl still too high she will work on cutting back ice cream and cookies- as needs ldl lower -not having the pancreatitis sx Encounter Diagnosis: Diabetes type II,controlled no comp (250.00), Vitamin B12 deficiency anemia (281.1), Heart murmur (785.2), VITAMIN D DEFICIENCY, NOS (268.9), Anxiety state, unspecified (300.00), Hypothyroidism (244.9), GERD (530.81), Other and unspecified hyperlipidemia (272.4), Benign essential hypertension (401.1) [facility] Office Visit On: 03-Oct-2011 12:52 Encounter Reason: Follow up tests - Diagnostic tests include other (carotid doppler- in scanned documents). Date: (10/01/11). Follow up visit with no current symptoms. Note for Follow up tests: sheisnt taking calcium and End: 03-Oct-2011 13:59 is not compliant with her vit d so encourage cmpliance as bones thinning and encoruage compliance with walking- she was admitteed to hospital 2 weeks ago with mild pancreasitis vs gastroenteritis - she has no sx now- has no etoh and no gb and trigs ok an no susupicious meds- also reviewed bone density and mammoEncounter Diagnosis: Carotid stenosis (433.10), Osteopenia (733.90), Pancreatitis, acute (577.0) [facility] Office Visit On: 18-Sep-2011 11:45 Encounter Reason: Skin Lesions - The last clinic visit was month(s) ago. No changes in management were made at the last visit. Symptoms include multiple skin lesions. The patient describes the lesion(s) as painless (unle End: 18-Sep-2011 12:15 ss get irritated bc get caught on necklace).Encounter Diagnosis: Skin Tag, Irritated (701.9) [facility] Office Visit On: 07-Sep-2011 11:13 Encounter Reason: Follow up for chronic medical issues - The patient feels well with no complaints, has good energy level and is sleeping well (takes her a while to fall asleep). Patient has been compliant with instructi End: 09-Sep-2011 9:10 ons. Current medication use: no side effects, compliant with dosing regimen and considered effective by patient. Patient sleeps 8 (with benedryl and trazadone) hours per night. Nutrition: balanced diet (eating high protein diet) and no supplemental vitamins & iron. The medical issues the patient is following up for include All identified problems below, blood sugar issues, cardiac issues, depressi on, gastric reflux, high blood pressure and high cholesterol. Note for Follow up for chronic medical issues: overall feeling good still working on diet and weight loss- shoulder better with an injecti on and sleeping ok but hard to fall asleep sometime so told to try trazadone earlier in the night - no gerd- mood ok , [ADDITIONAL REASON] Follow up, Laboratory Test Results - Date: (09/04/11). 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 The cough is characterized as dry. The cough occurs all the time. The symptoms are aggravated by supine posture. The symptoms have been associated with h End: 08-Aug-2011 10:20 eadache, hoarseness and runny nose (yellow), while the symptoms have not been associated with fever, sore throat or wheezing.Encounter Diagnosis: Acute sinusitis, unspecified (461.9), Chronic cough (786.2) [facility] Office Visit On: 06-Jun-2011 10:25 Encounter Reason: Follow up for chronic medical issues - The patient feels well with no complaints, has good energy level and is sleeping well (takes her a while to fall asleep). Patient has been compliant with instructi End: 06-Jun-2011 11:23 ons. Current medication use: no side effects, compliant with dosing regimen and considered effective by patient. Patient sleeps 8 (with benedryl and trazadone) hours per night. Nutrition: balanced diet (eating high protein diet) and no supplemental vitamins & iron. The medical issues the patient is following up for include All identified problems below, blood sugar issues, cardiac issues, depressi on, gastric reflux, high blood pressure and high cholesterol. Note for Follow up for chronic medical issues: she is down 41 pounds on higher protein diet andf she feels alot better- and bp is good and sugar is better- except her arthritis in knees hurts- celebrex helps- she went off lipitor and wanted to see how fish oil works and it didnt, [ADDITIONAL REASON] Follow up, Laboratory Test Results - Date: (05/29/11). Encounter Diagnosis: HYPERTENSION, NOS (401.9), Hypothyroidism (244.9), GERD (530.81), Anxiety state, unspecified (300.00), Vitamin B12 deficiency anemia (281.1), Other and unspecified hyperlipidemia (272.4), VITAMIN D DEFICIENCY, NOS (268.9), Diabetes type II,controlled no comp (250.00), Osteopenia (733.90) [facility] Office Visit On: 11-May-2011 9:59 Encounter Reason: Injections - The medication the patient is here to receive is vitamin B12 IM and other (Flu).Encounter Diagnosis: Need for prophylactic vaccination and inoculation against influenza (V04.81), Vitamin B12 deficiency anemia (281.1) End: 11-May-2011 10:07 [facility] Office Visit On: 05-Mar-2011 10:47 Encounter Reason: Follow up for chronic medical issues - The patient feels well with minor complaints (ongoing fatigue), has decreased energy level and is sleeping well (takes her a while to fall asleep). Patient has bee End: 05-Mar-2011 11:46 n compliant with instructions. Current medication use: no side effects, compliant with dosing regimen and considered effective by patient. Patient sleeps 8 (with benedryl and trazadone) hours per night. Nutrition: inappropriate diet and no supplemental vitamins & iron. The medical issues the patient is following up for include All identified problems below, blood sugar issues, cardiac issues, depr ession, gastric reflux, high blood pressure and high cholesterol. Note for Follow up for chronic medical issues: she is feeling well but admits to not watching her her diet and carbs- bp is better- fe eling well other than arthritis- -doest want more blood sugar meds- she will try harder= not really doing routine exrcise- she has membership to [employer]- ecnourage- no gerd- mood pretty good, [ADDITIONAL REASON] Follow up, Laboratory Test Results - Date: (02/27/11). Encounter Diagnosis: Other and unspecified hyperlipidemia (272.4), Vitamin B12 deficiency anemia (281.1), Abnormal Glucose Tolerance Test (790.22), VITAMIN D DEFICIENCY, NOS (268.9), Anemia(285.9), GERD (530.81), HYPERTENSION, NOS (401.9), Type II Diabetes,uncontrolled (250.02), Abnormal mammogram (793.80), Hypothyroidism (244.9) [facility] Office Visit On: 07-Feb-2011 9:46 Encounter Reason: Injections - The medication the patient is here to receive is vitamin B12 IM.Encounter Diagnosis: Anemia(285.9) End: 07-Feb-2011 10:09 [facility] Office Visit On: 24-Jan-2011 13:51 Encounter Reason: Leg pain - The leg pain began suddenly and has been occurring for 5 days. The symptoms have been occurring in a persistent pattern. The symptoms are described as a tightness (and sore to touch) and are End: 24-Jan-2011 14:22 moderate in severity. There is involvement of the right calf (and below it). There are no precipitating factors. Aggravating factors include exertion. There are no relieving factors. There has been no associated chest pain, dizziness, dyspnea, numbness and tingling in toes or calf swelling. Note for Leg pain: also wants to increase trazadone not getting to sleep easy- was walking into a stadium and all of a sudden she couldnt walk-because tight and painful- has gotten better- but not gone- no trauma- little swellingEncounter Diagnosis: GENERAL SYMPTOMS; UNSPECIFIED SLEEP DISTURBANCE (780.50), Limb pain (729.5) [facility] Historical Summary On: 29-Dec-2010 9:44 Encounter Diagnosis: Unspecified Diagnosis End: 29-Dec-2010 9:47 [facility] Office Visit On: 24-Oct-2010 10:44 Encounter Reason: Follow up for chronic medical issues - The patient feels well with minor complaints (fatigue worsening, no ambition or energy- Depression worsening???), has decreased energy level and is sleeping well ( End: 24-Oct-2010 12:28 takes her a while to fall asleep). Patient has been compliant with instructions. Current medication use: no side effects, compliant with dosing regimen and considered effective by patient. Patient sleep s 8 hours per night. Nutrition: inappropriate diet and no supplemental vitamins & iron. The medical issues the patient is following up for include All identified problems below, blood sugar issues, cardiac issues, depression, gastric reflux, high blood pressure and high cholesterol. Note for Follow up for chronic medical issues: weight down but cutting back - didnt take bp pills yet today- but s till down despite the weather- forgot to keep getting b12 - is taking two tabs sythroid on sun- only taking vit d once a day- increase to bid, [ADDITIONAL REASON] Follow up, Laboratory Test Results - Date: (10/18/10). Encounter Diagnosis: Anxiety state, unspecified (300.00), DEPRESSIVE DISORDER, NOT ELSEWHERE CLASSIFIED (311.), Abnormal Glucose Tolerance Test (790.22), Vitamin B12 deficiency anemia (281.1), HYPERTENSION, NOS (401.9), Hypothyroidism (244.9), Other and unspecified hyperlipidemia (272.4), GERD (530.81), Carotid stenosis (433.10) [facility] Office Visit On: 05-Sep-2010 11:49 Encounter Reason: Well Women Exam - The patient feels well with no complaints, has good energy level and is sleeping well. Pap smear: date of last pap: (years ago). Contraceptive history: The patient is not using any met End: 05-Sep-2010 12:29 hod of contraception at this time. Patient does not exercise. The patient's libido is absent. The patient reports that she performs monthly self breast exam. The patient denies the use of oral contracep tives or hormone replacement therapy. Menstruation: Last menstrual period date: (post-menopausal)., [ADDITIONAL REASON] Follow up, Diagnostic Procedure Results - Diagnostic tests include ultrasound (breast). Date: (08/24/10). Encounter Diagnosis: Well Woman Exam , Medicare (V76.2), Abnormal mammogram (793.80), VITAMIN D DEFICIENCY, NOS (268.9), Vitamin B12 deficiency anemia (281.1), Abnormal Glucose Tolerance Test (790.22) [facility] Office Visit On: 03-Jul-2010 10:06 Encounter Reason: Follow up for chronic medical issues - The patient feels well with minor complaints (ongoing knee pain- currently in therapy and seeing tejas), has good energy level and is sleeping well. Patient has End: 03-Jul-2010 11:22 been compliant with instructions. Current medication use: no side effects, compliant with dosing regimen and considered effective by patient. Patient sleeps 8 hours per night. Nutrition: inappropriate d iet and no supplemental vitamins & iron. The medical issues the patient is following up for include All identified problems below, blood sugar issues, cardiac issues, depression, gastric reflux, hig h blood pressure and high cholesterol. Note for Follow up for chronic medical issues: the knees are feeling better just stiff- just taking one celebrex a day- the patinet went to er because of the christy n and matthew ended up seeing her and draining off fluid- and now doing therapy- weight down 2 pounds - no gi upset or swelling and bp is fine- she just started bid on vit d - needs to do routinely as no t up yet- mood is good and sleeping good actually feeling good, [ADDITIONAL REASON] Follow up, Laboratory Test Results - Date: (06/30/10). Encounter Diagnosis: Abnormal Glucose Tolerance Test (790.22), Vitamin B12 deficiency anemia (281.1), Anxiety state, unspecified (300.00), VITAMIN D DEFICIENCY, NOS (268.9), GERD (530.81), Hypothyroidism (244.9), Other and unspecified hyperlipidemia (272.4), HYPERTENSION, NOS (401.9), screening [facility] Office Visit On: 20-Jun-2010 9:51 Encounter Reason: Joint pain - The onset of the pain has been gradual and has been occurring in a persistent pattern for 2 months. The course has been increasing. The pain is described as severe. Note for Joint pain: h End: 20-Jun-2010 10:51 x of arthritis- affecting her hips, knees and legs. Also in hands but not as severe. Affecting her range of motion, walking especially. Pt wants to be on celebrex.- has been on before and made her feel so much better but discussed side effects of stomach issue- high bp kidney issue and swelling- she tolerated before- she is stiff ankur mbut doesnt take long to get goingEncounter Diagnosis: Anxiety state, unspecified (300.00), ARTHRALGIAS 719.40, VITAMIN D DEFICIENCY, NOS (268.9), Vitamin B12 deficiency anemia (281.1) [facility] Office Visit On: 10-May-2010 14:02 Encounter Reason: Injections - The medication the patient is here to receive is vitamin B12 IM and other (influezna ).Encounter Diagnosis: Need for prophylactic vaccination and inoculation against influenza (V04.81), End: 10-May-2010 14:15 Vitamin B12 deficiency anemia (281.1) [facility] Historical Summary On: 19-Apr-2010 8:40 [facility] End: 19-Apr-2010 8:41 Office Visit On: 18-Apr-2010 12:05 [facility] End: 18-Apr-2010 21:50 Office Visit On: 12-Apr-2010 11:15 Encounter Reason: Edema - The onset of the edema has been acute and has been occurring in a persistent pattern for 1 days. The course has been constant. The edema is described as being located in the left lower extremity End: 12-Apr-2010 12:34 . Note for Edema: just noticed last night while at [employer]- no trauma or pain - no chest pain or sob, [ADDITIONAL REASON] Cough - The last clinic visit was 2 week(s) ago. Symptoms include cough. The cou gh is described as dry. Cough onset was gradual 1 week(s) ago. There is no known event that preceded symptom onset. Symptoms are described as moderate in severity. Note for Cough: no fever or sob - so me wheeze- doesnt feel sick just cough wonders if from medicine- no gerd or draiange- Encounter Diagnosis: Chronic cough (786.2), Edema (782.3) [facility] Office Visit On: 05-Apr-2010 11:26 Encounter Diagnosis: Vitamin B12 deficiency anemia (281.1) End: 05-Apr-2010 11:39 [facility] Office Visit On: 05-Apr-2010 10:32 Encounter Reason: Follow up for chronic medical issues - The patient feels well with no complaints ,has good energy level and is sleeping well. Patient has been compliant with instructions. Current medication use: no tim End: 05-Apr-2010 11:22 e effects ,compliant with dosing regimen and considered effective by patient. Patient sleeps 8 hours per night. Impact of disease: emotional impact-moderate. Nutrition: inappropriate diet and no supplem ental vitamins & iron. The medical issues the patient is following up for include All identified problems below ,blood sugar issues ,cardiac issues ,depression ,gastric reflux ,high blood pressure a nd high cholesterol. Note for Follow up for chronic medical issues: she s feeling better- nausea vomiting and abd pain- gone-she got gallbladder out- got cataract out in right eye and is going to do left tueEncounter Diagnosis: Type II Diabetes,uncontrolled (250.02), Hypothyroidism (244.9), DEPRESSIVE DISORDER, NOT ELSEWHERE CLASSIFIED (311.), Other and unspecified hyperlipidemia (272.4), Benign essential hypertension (401.1), GERD (530.81), Knee pain (719.46), VITAMIN D DEFICIENCY, NOS (268.9), Vitamin B12 deficiency anemia (281.1), Epigastric pain (Renamed from Abdominal pain, epigastric), SYMPTOM, NAUSEA ALONE (787.02), Diarrhea (Renamed from D (diarrhea)), Osteopenia (733.90), Nausea and vomiting (Renamed from N&V (nausea and vomiting)), Eczema herpeticum, Skin lesion [facility] Office Visit On: 17-Feb-2010 11:16 Encounter Reason: Follow up hospital - Reason for ER visit: abdominal pain (vomiting). The patient feels well with minor complaints (still nausea, pain is gone. No vomiting.) ,has decreased energy level and is sleeping w End: 20-Feb-2010 8:54 ell. Patient has been compliant with instructions. Current medication use: no side effects and compliant with dosing regimen. Patient sleeps 7 hours per night. Hospital procedures performed were other (us, ct, labs). Encounter Diagnosis: Nausea and vomiting (787.01), Fatty Liver (571.8), Type II Diabetes,uncontrolled (250.02) [facility] Office Visit On: 01-Feb-2010 12:25 Encounter Reason: Nausea - The onset of the nausea has been sudden and has been occurring in an intermittent pattern for 3 weeks. The course has been recurrent. The nausea occurs approximately 2-4 hours after meals (and End: 02-Feb-2010 23:04 sometimes has no relationships to meals- Sometimes wakes up with it.). The symptoms are aggravated by eating. The symptoms have no relieving factors. The symptoms have been associated with abdominal dis tention ,abdominal pain and use of medications, while the symptoms have not been associated with chest pain ,dysphagia ,fever ,upper respiratory infection symptoms or vomiting. Note for Nausea: no ashley rrhea- but has epigastric pain and bloating- bowels normal no blood- alot of nausea- appetetie not great- thouht maybe was bioslim- but quit and still persistedEncounter Diagnosis: Epigastric pain (789.06) [facility] Annotation/Addendum On: 18-Jan-2010 11:15 Encounter Diagnosis: SYMPTOM, NAUSEA ALONE (787.02) End: 18-Jan-2010 11:18 [facility] Office Visit On: 10-Jan-2010 11:52 Encounter Reason: Nausea - The onset of the nausea has been sudden and has been occurring in a persistent pattern for hours. The course has been increasing. The nausea has no relationship to meals. The symptoms have no a End: 10-Jan-2010 13:42 ggravating factors. The symptoms have no relieving factors. The symptoms have been associated with diarrhea (yesterday), while the symptoms have not been associated with abdominal distention ,abdominal pain ,chest pain ,dark urine ,fever ,headache ,myalgia ,neck stiffness ,tinnitus ,vertigo or vomiting. Encounter Diagnosis: Dehydration(276.51), Diarrhea (787.91), SYMPTOM, NAUSEA ALONE (787.02) [facility] Annotation/Addendum On: 03-Jan-2010 13:22 [facility] End: 03-Jan-2010 13:35 Office Visit On: 03-Jan-2010 10:58 Encounter Reason: Follow up for chronic medical issues - The patient feels well with minor complaints (some depression and anxiety- increasing and cant remember if she's taking the celexa or not, but takes ativan prn Als End: 03-Jan-2010 12:02 o having some joint/arthritis pain lately, has hx of arthritis and would like a referral to ortho-) ,has good energy level and is sleeping well. Patient has been compliant with instructions. Current med ication use: no side effects and compliant with dosing regimen. Patient sleeps 8 hours per night. Nutrition: inadequate caloric intake ,no supplemental vitamins & iron and low salt diet. The medical issues the patient is following up for include All identified problems below ,blood sugar issues ,cardiac issues ,depression ,gastric reflux ,high blood pressure and high cholesterol. 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 Note for Follow up, Laboratory Test Results: she went to er yesterday- with vomit and diarrhea- they told her virus and gave h er fluids- and she has had no mor vomit or diarrhea- no fever - she feels better- she started at [facility] and weight down 9 pounds alreadyand bp alot better Encounter Diagnosis: HYPERTENSION, NOS (401.9), Type II Diabetes,uncontrolled (250.02), DEPRESSIVE DISORDER, NOT ELSEWHERE CLASSIFIED (311.), Other and unspecified hyperlipidemia (272.4), Vitamin B12 deficiency anemia (281.1), VITAMIN D DEFICIENCY, NOS (268.9), Hypothyroidism (244.9), Wheezing (Renamed from Asthmatic breathing), Chronic cough (786.2), Knee pain (719.46) [facility] Office Visit On: 08-Nov-2009 10:20 Encounter Reason: Cold Symptoms - Symptoms include sneezing ,nasal congestion ,runny nose ,dry cough ,facial pressure and facial pain, while symptoms do not include scratchy throat ,sore throat ,hoarseness ,productive co End: 08-Nov-2009 10:52 ugh or headache. Onset was gradual 2 month(s) ago. There is no known event that preceded symptom onset. The symptoms occur constantly. The patient describes this as moderate in severity and worsening. S ymptoms are not relieved by non-prescription cold medications (generic otc- cant remember name- didnt help). Associated symptoms include fatigue and weakness, while associated symptoms do not include pl ugged ear(s) ,ear pain ,swollen lymph nodes ,wheezing ,shortness of breath ,nausea ,vomiting ,diarrhea ,fever or chills. The patient is not currently being treated for this problem. Note for Cold Sympt oms: - no colored draiange just plugged solid- getting allergy shots- no fever- just alot of pressure- not wheezing now-mowed yesterday made worseEncounter Diagnosis: Allergic rhinitis (477.9) [facility] Office Visit On: 19-Oct-2009 15:10 Encounter Reason: Sinusitis/ - The duration of the symptoms are 2 weeks The course has been worsening. The sinusitis/ has no relieving factors. Associated features include The symptoms have been associated with cough (pr End: 19-Oct-2009 15:30 oductive) ,nasal discharge/stuffy nose (clear) and sinus pain, while the symptoms have not been associated with ear pain ,purulent discharge from ear ,purulent nasal discharge ,red eyes ,sore throat ,sw ollen lymph glands or teeth pain. No previous evaluations were reported. diabetes. Encounter Diagnosis: Acute sinusitis, unspecified (461.9), Chronic cough (786.2), Wheezing (786.07) [facility] Office Visit On: 27-Sep-2009 12:08 Encounter Reason: Follow up, Laboratory Test Results - Date: (09/22/09). Note for Follow up, Laboratory Test Results: she went to er yesterday- with vomit and diarrhea- they told her virus and gave her fluids- and she h End: 27-Sep-2009 22:32 as had no mor vomit or diarrhea- no fever - she feels better- she started at [employer] and weight down 9 pounds alreadyand bp alot betterEncounter Diagnosis: VITAMIN D DEFICIENCY, NOS (268.9), Hypothyroidism (244.9), Other and unspecified hyperlipidemia (272.4), Benign essential hypertension (401.1), Vitamin B12 deficiency anemia (281.1), DEMENTIA, NOS (294.8) [facility] Office Visit On: 09-Sep-2009 12:01 Encounter Reason: Follow up for chronic medical issues - The patient feels well with no complaints ,has good energy level and is sleeping well. Patient has been compliant with instructions. Current medication use: experi End: 12-Sep-2009 7:20 encing side effects (quit LIpitor). Patient sleeps 8 hours per night. Impact of disease: emotional impact-mild. Nutrition: inadequate caloric intake ,no supplemental vitamins & iron and low salt t. The medical issues the patient is following up for include All identified problems below ,blood sugar issues ,cardiac issues ,depression ,gastric reflux ,high blood pressure and high cholesterol. 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 The course has been increasing. The pain is described as severe. The pain is described a End: 05-Jul-2009 17:42 s being located in the left shoulder. The pain is aggravated by reaching (backwards) and lifting. The pain is relieved by rest (modification of activity). 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 Note for Follow up, Laboratory Test Results: patient experiencing issues significant with memory loss -not taking an aspirin a day- no chest pain End: 16-Jun-2009 7:22 sob- herrera -edema dizziness- discussed use of caffeine and avoiding decongestants with her bp- she is als overweight and not exercising so discussed need to work on these things with her dm chol -- htn, [ADDITIONAL REASON] Follow up, Diagnostic Procedure Results - Diagnostic tests include CT scan (brain). Date: (06/07/09). Encounter Diagnosis: Carotid stenosis (433.10), CHRONIC SMALL ARTERY ISCHEMIA OF BRAIN (348.9), CVA (434.91), DEMENTIA, NOS (294.8), HYPERTENSION, NOS (401.9), VITAMIN D DEFICIENCY, NOS (268.9), Vitamin B12 deficiency anemia (281.1), Iron Deficiency Anemia,Unspecified (280.9), Hypothyroidism (244.9), Other and unspecified hyperlipidemia (272.4), DEPRESSIVE DISORDER, NOT ELSEWHERE CLASSIFIED (311.) [facility] Office Visit On: 06-Jun-2009 11:27 Encounter Reason: Follow up, Laboratory Test Results - Date: (02/11/09). Note for Follow up, Laboratory Test Results: This is also a 6 week f/u on Parenchyma of her finger tips. Pt hasn't been using the bagbalm with leydi End: 06-Jun-2009 22:39 an wrap lately, but in the beginning she was and her fingers are healed up now. - hands are finally healed and noinfection or crackingEncounter Diagnosis: Osteopenia (733.90), Altered mental status (780.97), Anxiety state, unspecified (300.00), HYPERTENSION, NOS (401.9), Other and unspecified hyperlipidemia (272.4), Glucose Intolerant (271.3), Vitamin B12 deficiency anemia (281.1), screening, Iron Deficiency Anemia,Unspecified (280.9), Abnormal TSH (794.5), PARONYCHIA (681.9), Hand Pain (719.44) [facility] Office Visit On: 12-May-2009 12:04 Encounter Diagnosis: Need for prophylactic vaccination and inoculation against influenza (V04.81) End: 12-May-2009 17:52 [facility] Office Visit On: 29-Mar-2009 14:42 Encounter Reason: Skin problems - The onset of the skin problem has been gradual and has been occurring in a persistent pattern for 3 months. The course has been recurrent. The skin problem is described as moderate. Note End: 29-Mar-2009 23:15 for Skin problems: finger tips of both hands recurrently split open and then bleed. Pt puts bag balm on them at hs and is helping but not gone and she is frustated-- using neosporin on fingers-- saw jacqui- 6 mos ago= Skin is very dry looking-- no drainage or feverEncounter Diagnosis: Dermatitis (692.9) [facility] Office Visit On: 10-Mar-2009 11:01 Encounter Reason: Finger problems - The onset of the finger problems has been sudden and they have been occurring in an intermittent pattern for 1 months. The course has been constant. The finger problems are described a End: 10-Mar-2009 11:29 s severe. Note for Finger problems: still having issues with right pointer finger-- she saw Jacqui- has had all kinds of cremes last cloderm- - just keeps cracking now swollen and sore- now has a paronychiaEncounter Diagnosis: PARONYCHIA (681.9), Anxiety state, unspecified (300.00), Stress Reaction (308.4) [facility] Office Visit On: 11-Feb-2009 13:45 Encounter Reason: Follow up Hypertension - The patient has experienced follow up hypertension for 3 years. The symptoms have been associated with family history of hypertension. Encounter Diagnosis: PARONYCHIA (681.9), End: 14-Feb-2009 9:06 Benign essential hypertension (401.1), Hand Pain (719.44), Hypothyroidism (244.9), Vitamin B12 deficiency anemia (281.1) [facility] Office Visit On: 26-Jan-2009 11:09 Encounter Reason: Wrist Pain - The onset of the wrist pain has been sudden following an incident not at work (fell yesterday over lawnmower) and has been occurring in a persistent pattern for 1 days. The course has been End: 30-Jan-2009 22:06 without change. The wrist pain is mild. The wrist pain is characterized as a dull aching. The wrist pain is described as being located in the entire wrist. There are no aggravating factors. Relieving fa ctors include ice. Associated features include: muscle swelling ,joint swelling ,painful ROM ,decreased ROM ,difficulty opening doors ,difficulty turning keys in the ignition and difficulty with shaking hands, but not warmth ,burning sensation ,fever ,chills or difficulty with fine motor skills. Note for Wrist Pain: mechanical-- no pain just swelling right wrist- no elbow pain- no oohter pain- Encounter Diagnosis: PARONYCHIA (681.9), HYPERTENSION, NOS (401.9), Hand Pain (719.44) [facility] Office Visit On: 27-Dec-2008 9:55 Encounter Reason: Follow up, Diagnostic Procedure Results - Diagnostic tests include ECHO (11/04). Date: (11/04). Follow up visit with no current symptoms. Note for Follow up, Diagnostic Procedure Results: Pt was to have End: 27-Dec-2008 10:58 a sleep study done, but knew that she couldnt handle the machine on her face. Pt also had lab work done. Lipid, TSH, CMP, CBC. , [ADDITIONAL REASON] Follow up for chronic medical issues - The patient feels well with no complaints ,has good energy level and is sleeping well. Patient has been compliant with instructions. Current medication use: experiencing side effects (quit LIpitor). Patient sleeps 8 hours per night. Impact of disease: emotional impact-mild. Nutrition: inadequate caloric intake. The medical issues the patient is following up for include All identified problems below ,blood sugar issues ,cardiac issues ,depres blas ,gastric reflux ,high blood pressure and high cholesterol. 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- ie heart failure- her breathing is better - she isnt having gerd with the meds Encounter Diagnosis: HYPERTENSION, NOS (401.9), DEPRESSIVE DISORDER, NOT ELSEWHERE CLASSIFIED (311.), Hypothyroidism (244.9), Osteopenia (733.90), GERD (530.81), Abnormal Glucose Tolerance Test (790.22), Vitamin B12 deficiency anemia (281.1), Other and unspecified hyperlipidemia (272.4), Chronic cough (786.2), Acute sinusitis, unspecified (461.9), BRONCHITIS, NOT SPECIFIED ACUTE OR CHRONIC (490.), Sinus congestion (478.19), Multiple Sites (879.8) [facility] Office Visit On: 08-Nov-2008 8:52 Encounter Diagnosis: cardiomegaly, SOB (786.05), Hypothyroidism (244.9), GERD (530.81), Other and unspecified hyperlipidemia (272.4) End: 08-Nov-2008 10:00 [facility] Historical Summary On: 25-Oct-2008 17:50 [facility] End: 25-Oct-2008 17:51 Office Visit On: 20-Oct-2008 14:11 Encounter Reason: Nasal congestion - The onset of the nasal congestion has been sudden and has been occurring in a persistent pattern for 2 weeks. The nasal congestion is described as moderate. Encounter Diagnosis: Sinus congestion (478.19) End: 20-Oct-2008 14:27 [facility] Office Visit On: 13-Sep-2008 11:03 Encounter Reason: Sinusitis/ - The duration of the symptoms are 3 days The course has been worsening. The sinusitis/ has no relieving factors. Associated features include The symptoms have been associated with nasal disc End: 13-Sep-2008 11:20 harge/stuffy nose ,sinus pain and teeth pain, while the symptoms have not been associated with cough or ear pain. No previous evaluations were reported. Encounter Diagnosis: Acute sinusitis, unspecified (461.9), Benign essential hypertension (401.1) [facility] Office Visit On: 02-Sep-2008 15:37 Encounter Reason: Cough - The onset of the cough has been sudden and 3 days ago. The cough is characterized as dry. The amount of sputum produced is scanty. The cough occurs all the time. The symptoms are aggravated by s End: 02-Sep-2008 16:06 upine posture and particular position, but not by meals. The symptoms have been associated with hoarseness and wheezing, while the symptoms have not been associated with fever. Encounter Diagnosis: BRONCHITIS, NOT SPECIFIED ACUTE OR CHRONIC (490.) , Abnormal Lung Sounds/Rales (786.7) [facility] Office Visit On: 06-Aug-2008 11:22 Encounter Reason: Follow up, Laboratory Test Results - Date: (bloodwork 08.02.08 on face sheet.). , [ADDITIONAL REASON] Follow up for chronic medical issues - The patient feels well with no complaints End: 06-Aug-2008 11:51 ,has decreased energy level and is sleeping poorly. Patient has been compliant with instructions. Current medication use: no side effects. Patient sleeps 7 hours per night. Nutrition: inappropriate diet. Encounter Diagnosis: Abnormal Glucose Tolerance Test (790.22), HYPERTENSION, NOS (401.9), Hyperlipidemia (272.4), Hypothyroidism (244.9), Abnormal TSH (794.5), GERD (530.81), DEPRESSIVE DISORDER, NOT ELSEWHERE CLASSIFIED (311.) [facility] Office Visit On: 31-May-2008 10:15 Encounter Reason: Follow up Hypertension - There has been no associated anxiety ,excessive caffeine intake ,family history of hypertension ,kidney disease ,obesity ,sleep apnea symptoms ,use of nasal decongestants ,use o End: 31-May-2008 10:41 f oral contraceptives or use of steroids. Encounter Diagnosis: Benign essential hypertension (401.1) [facility] Office Visit On: 19-Apr-2008 9:47 Encounter Diagnosis: Benign essential hypertension (401.1) End: 19-Apr-2008 10:15 [facility] Office Visit On: 17-Mar-2008 10:31 Encounter Reason: Follow up for chronic medical issues - The patient feels well with minor complaints ,has decreased energy level (after 3) and is sleeping well. Patient has been compliant with instructions. Current [facility] End: 17-Mar-2008 17:32 cation use: no side effects and compliant with dosing regimen. Patient sleeps 7 hours per night. Nutrition: inappropriate diet and no supplemental vitamins & iron. The medical issues the patient is following up for include All identified problems below ,blood sugar issues ,gastric reflux ,high blood pressure and high cholesterol. Encounter Diagnosis: Abnormal Glucose Tolerance Test (790.22), Benign essential hypertension (401.1), Hypothyroidism (244.9), Hyperlipidemia (272.4), Osteoarthritis (715.96), DEPRESSIVE DISORDER, NOT ELSEWHERE CLASSIFIED (311.), Chronic cough (786.2), Stress incontinence, female (625.6), Vitamin B12 deficiency anemia (281.1) [facility] Office Visit On: 23-Dec-2007 11:01 Encounter Reason: Skin lesion - The skin lesion appeared gradually and has been occurring for years. It has been unchanging in size. The skin lesion is characterized as brown and raised above the skin. The skin lesion is End: 23-Dec-2007 11:21 located on the abdomen (under breast) and the face. There has been no associated itching. Encounter Diagnosis: Actinic keratosis (702.0) [facility] Office Visit On: 16-Dec-2007 9:11 Encounter Reason: Follow up for chronic medical issues - The patient feels well with minor complaints (a little tired.) ,has decreased energy level and is sleeping poorly. Patient has been compliant with instructions. Cu End: 16-Dec-2007 10:34 rrent medication use: no side effects. Patient sleeps 6 hours per night. Nutrition: balanced diet and no supplemental vitamins & iron. , [ADDITIONAL REASON] Follow up, Laboratory Test Results - Date: (12.09.07 on face sheet. ). Encounter Diagnosis: Abnormal Glucose Tolerance Test (790.22), Benign essential hypertension (401.1), Hyperlipidemia (272.4), Vitamin B12 deficiency anemia (281.1), Iron Deficiency Anemia,Unspecified (280.9), Hypothyroidism (244.9), GERD (530.81), GENERAL SYMPTOMS; UNSPECIFIED SLEEP DISTURBANCE (780.50), GENERAL SYMPTOMS; OTHER MALAISE AND FATIGUE (780.79), Osteoarthritis (715.96) [facility] Office Visit On: 20-Nov-2007 13:57 Encounter Reason: Sinusitis/ - The duration of the symptoms are 1 week The course has been worsening. The sinusitis/ has no relieving factors. Associated features include The symptoms have been associated with cough ,angelica End: 20-Nov-2007 14:39 al discharge/stuffy nose and sinus pain, while the symptoms have not been associated with sore throat. No previous evaluations were reported. allergies. Encounter Diagnosis: Acute sinusitis, unspecified (461.9), Allergic rhinitis (477.9), Vitamin B12 deficiency anemia (281.1) [facility] Nurse Visit On: 13-Nov-2007 9:20 Encounter Diagnosis: Iron Deficiency Anemia,Unspecified (280.9) End: 13-Nov-2007 9:38 [facility] Office Visit On: 08-Sep-2007 13:06 Encounter Reason: Fatigue - The onset of the fatigue has been sudden and has been occurring in a persistent pattern for 2 months. The course has been constant. The fatigue occurs all the time. There has been no associated sleep disturbance. , End: 08-Sep-2007 13:50 [ADDITIONAL REASON] Follow up, Laboratory Test Results - Date: (09-02-07 on face sheet). Encounter Diagnosis: Hyperlipidemia (272.4), Iron Deficiency Anemia,Unspecified (280.9) [facility] Historical Summary On: 04-Sep-2007 9:28 [facility] End: 04-Sep-2007 9:37 Office Visit On: 30-Jul-2007 14:00 Encounter Reason: Follow up for chronic medical issues - The patient feels well with minor complaints ,has decreased energy level and is sleeping poorly. Patient has been compliant with instructions. Current medication u End: 30-Jul-2007 17:32 se: no side effects and compliant with dosing regimen. Patient sleeps 6 hours per night. Nutrition: balanced diet and no supplemental vitamins & iron. The medical issues the patient is following up for include All identified problems below ,blood sugar issues ,depression ,gastric reflux ,high blood pressure and high cholesterol. , [ADDITIONAL REASON] Follow up, Laboratory Test Results - Date: (07-09-07). Encounter Diagnosis: Abnormal Glucose Tolerance Test (790.22), HYPERTENSION, NOS (401.9), Hypothyroidism (244.9), Vitamin B12 deficiency anemia (281.1), Gerd (530.81), Osteoarthritis (715.96), Hyperlipidemia (272.4) [facility] Historical Summary On: 10-Jul-2007 13:06 [facility] End: 10-Jul-2007 13:09 Office Visit On: 09-Jul-2007 10:03 Encounter Reason: Skin lesion - The skin lesion appeared rapidly and has been occurring for 3 days. It has been unchanging in size. The skin lesion is characterized as red ,pustular and raised above the skin. The skin le End: 09-Jul-2007 11:07 blas is located on the trunk. There has been associated itching and pain, while there has been no alopecia ,anorexia ,chills ,fatigue ,fever ,kidney disease ,liver disease ,loss of sensation ,lymphadeno alexandre ,malaise ,mucous membrane lesions ,nail changes or weight loss. Encounter Diagnosis: Skin lesion (709.9), Finger (883.0) [facility] Office Visit On: 02-Jul-2007 9:42 Encounter Diagnosis: Eczema herpeticum (054.0), Skin lesion (709.9), Vitamin B12 deficiency anemia (281.1) End: 02-Jul-2007 10:30 [facility] Office Visit On: 23-Jun-2007 11:36 Encounter Reason: Skin changes - The onset of the skin changes has been sudden and they have been occurring in a persistent pattern for 1 weeks. The course has been constant. The skin changes are described as moderate. N End: 23-Jun-2007 12:26 ote for Skin changes: patient was working with bleach in the water and now has cracks around pointer phlange of R hand, and L hand has 3rd digit and was bleeding. Pt used creams without reliefEncounter Diagnosis: Multiple Sites (879.8), Finger (883.0) [facility] Office Visit On: 04-Jun-2007 11:39 Encounter Diagnosis: Vitamin B12 deficiency anemia (281.1), Need for prophylactic vaccination and inoculation against influenza (V04.81) End: 04-Jun-2007 11:55 [facility] Office Visit On: 01-May-2007 10:32 Encounter Diagnosis: Vitamin B12 deficiency anemia (281.1) End: 01-May-2007 11:12 [facility] Nurse Visit On: 11-Apr-2007 9:11 Encounter Diagnosis: Vitamin B12 deficiency anemia (281.1) End: 11-Apr-2007 9:54 [facility] Nurse Visit On: 17-Mar-2007 12:31 Encounter Diagnosis: Vitamin B12 deficiency anemia (281.1) End: 17-Mar-2007 22:18 [facility] Office Visit On: 11-Mar-2007 10:21 Encounter Reason: Follow up, Laboratory Test Results - Lab results: other (review all results). Date: (01/20/07). Current symptoms/reason for visit include/s Symptoms include other (sciatic pain). , End: 11-Mar-2007 11:34 [ADDITIONAL REASON] sciatica - The leg pain began suddenly and has been occurring for 1 years (OFF AND ON -- REFLARED 1 WEEK AGO). The symptoms have been occurring in a recurrent pattern. The symptoms are described as a dull ache and shooting pain (DOWN LEG) and are mild to moderate in severity. The symptoms occur during the day. There is involvement of the right lower extremity ,buttocks and right thigh. Relief is provided by rest and Motrin. Encounter Diagnosis: Vitamin B12 deficiency anemia (281.1), Sciatica (724.3) [facility] Nurse Visit On: 25-Feb-2007 10:39 Encounter Diagnosis: Vitamin B12 deficiency anemia (281.1) End: 25-Feb-2007 13:20 [facility] Office Visit On: 11-Feb-2007 12:07 Encounter Diagnosis: Vitamin B12 deficiency anemia (281.1) End: 11-Feb-2007 12:45 [facility] Nurse Visit On: 04-Feb-2007 11:07 Encounter Reason: Injections - The medication the patient is here to receive is vitamin B12 IM. history: Patient is not currently . Encounter Diagnosis: Vitamin B12 deficiency anemia (281.1) End: 04-Feb-2007 11:19 [facility] Office Visit On: 28-Jan-2007 10:17 Encounter Reason: Follow up, Laboratory Test Results - Date: (01-20-07). Current symptoms/reason for visit include/s Follow up visit with no current symptoms. There is no family history of breast cancer ,cardiovascular di End: 28-Jan-2007 12:07 sease ,cystic fibrosis ,Down's syndrome ,mental retardation or myocardial infarction before age 55. Past medical history includes anemia ,hypothyroidism and other (arthritis, Abn GTT). Encounter Diagnosis: Vitamin B12 deficiency anemia (281.1) [facility] Office Visit On: 16-Jan-2007 10:54 Encounter Reason: Follow up for chronic medical issues - The patient feels well with no complaints. Patient has been compliant with instructions. Current medication use: no side effects. Patient sleeps 9 hours per night. End: 16-Jan-2007 11:30 Nutrition: balanced diet. The medical issues the patient is following up for include All identified problems below ,blood sugar issues ,high blood pressure and hypothyroid. Encounter Diagnosis: Abnormal Glucose Tolerance Test (790.22), HYPERTENSION, NOS (401.9), Hypothyroidism (244.9), Anemia(285.9) [facility] Office Visit On: 14-Nov-2006 11:15 Encounter Reason: Follow up hospital - Reason for ER visit: note: (influenza). The patient feels well with no complaints ,has decreased energy level and is sleeping well. Patient has been compliant with instructions. Cur End: 14-Nov-2006 11:51 rent medication use: no side effects ,compliant with dosing regimen and considered effective by patient. Patient sleeps 8 hours per night. Impact of disease: no overall impact. Nutrition: balanced diet. The hospital results of the stress test (11-11-06) were Encounter Diagnosis: Chest pain (786.59), Anemia(285.9), Nausea and vomiting (787.01), Gastroenteritis (009.0), Dehydration(276.51) [facility] Office Visit On: 18-Oct-2006 8:58 Encounter Reason: Nausea - The onset of the nausea has been acute (started nausea and vomiting on saturday diarrhea still continues the only thing she can keep down is sprite and she has very black diarrhea right after dr End: 18-Oct-2006 14:24 inking that has not taken meds because she cannot keep them down either). Encounter Diagnosis: Nausea and vomiting (787.01), Abdominal Pain,RUQ(789.01), Dehydration(276.51), Gastroenteritis (009.0) [facility] Office Visit On: 14-Oct-2006 15:29 Encounter Diagnosis: Abnormal Glucose Tolerance Test (790.22) End: 14-Oct-2006 18:08 [facility] Office Visit On: 10-Oct-2006 15:29 Encounter Reason: new patient female physical - Last seen less than 1 month ago. General health: feels well with no complaints and has decreased energy level (building a home and going through a lot of stressors). The pa End: 10-Oct-2006 17:02 tient's appetite is normal. Nutrition: normal/adequate. Normal bowel and bladder habits. Current emotional problems include depression. Encounter Diagnosis: Abnormal Glucose Tolerance Test (790.22), Hypothyroidism (244.9), HYPERTENSION, NOS (401.9) , Heart murmur (785.2), Abnormal EKG(794.31) [facility] Payers MedicareConnie Laidley-Curren; a guarantor
--- OUTSIDE RECORDS SUMMARY | 2018-08-20 04:01 | XMS RPT_ITS | Continuity of Care Document ---
:1940 Author Organization [facility] Address [address] [place] [address] Phone Care Team Providers Name Role Phone Doris Navarro DO Unavailable Camacho Serrano Unavailable Flakito Morales Unavailable [facility], [facility] Unavailable Marcello Stein Unavailable Sal Urrutia Unavailable [...] artery stenosis (I65.23, 433.10) Comments: goes to [facility] yearly to follow Status: Active BMI 34.0-34.9,adult [...] related to fatty liver -- did nutrition membership counselor and wt loss / metformin and [...] 0 days Quantity: 30 {Tablet} Refills: 3 Ordered:13-Feb-2018 Arnold Navarro DO, DO, KathleenFearon DO, Kathleen Start : 13-Feb-2018 Active PredniSONE 10 MG Oral Tablet 1 [...] Start : 26-Sep-2016 End : 12-Dec-2017 Inactive Royal 5-325 MG Oral Tablet 1 q 4hrs [...] : 07-Sep-2014 End : 13-Sep-2014 Discontinued ERGOCALCIFEROL, 23366ZCWR (Oral Capsule) 1 (one) Capsule q week [...] End : 23-Jun-2012 Discontinued VITAMIN D (ERGOCALCIFEROL), 12946DOOL (Oral Capsule) 1 Capsule q week for 0 days Quantity: 12 {Capsule} Refills: 2 Ordered:19-Aug-2015 Raiza Ortiz Start : 07-Apr-2013 End : 19-Aug-2015 Discontinued VITAMIN D, 83692UMPK (Oral Capsule) 1 (one) Capsule q week [...] Department Summary Result: Comments: See Note; NOTES: [facility] Medical Records Department [address] [place] [address] Emergency Department Summary 05/14/18 0908 MR#: [id number] Acct: [id number] Name: MARICRUZ GRIGSBY Rep #: [id number] : 1940 78 From: Zee Denise MD [...] family doctors she is re ferred to [facility] for the shoulder injury and she will return for change in symptoms and she is comfortable with this plan Treatment Plan: [] Disposition: [] Stable home Impression: [] Fall left rib fracture, left shoulder injury This note was generated with Everfiation software. It may contain incorrect words, spelling, [...] your Primary Care Provider. Call [facility] ([phone]) or report to the closest Emergency Room. Call 911 if necessary. 05/14/18 1530 <Electronically signed by Zee Denise MD> Date Zee Denise MD Cosigner Signatur e (If Indicated): Date CC: Doris Navarro DO 14-May-2018 Discharge Instruction Result: Comments: See Note; NOTES: [facility] Medical Records Department [address] [place] [address] Discharge Instruction 05/14/18 1133 MR#: [id number] Acct: [id number] Name: CLIFFORD HOBBSMARICRUZ THORNE Rep #: [id number] : 1940 78 From: Zee Denise MD PCP: Doris Navarro DO Status: REG ER ED Disposition - Plan for ED Patient: Chief Complaint: Fall Instructions: ED M echanical Fall, ED Fx Rib, ED Sprain Shoulder, ED Sling Prescriptions: Hydrocodone Bitart/Apap 5-325 [Royal 5MG-325MG] 1 tab PO Q6H PRN PRN 3 Days #10 tab PRN Reason: Pain Referrals: Doris Navarro DO [Primary Care Provider] - What to do if you have Problems For any increased pain, shortness of breath, bleeding, nausea or vomiting, chest pain, or any unexpected problems, contact your Primary Car e Provider. Call [facility] ([phone]) or report to the closest Emergency Room. Call 911 if necessary. 05/14/18 1134 <Electronically signed by Zee Denise MD> Date ___ Zee Denise MD Cosigner Signature (If Indicated): Date CC: Doris Navarro DO 14-May-2018 Chest PA and Lateral Result: Comments: See Note; NOTES: [facility] Imaging Services [address] [place] [address] Chest PA and Lateral MR#: [id number] Acct: [id number] Name: MARICRUZ GRIGSBY Rep #: [id number] : 1940 F 78 From: Teo Wayne MD PCP: Doris Navarro DO Status: REG ER Study: Chest PA and Lateral Date of Exam: 05/14/18 Exam# [id number] Ordering Dr: Zee Denise MD STUDY: X-RAY [...] Teo Wayne MD at 10:11 EDT Tel [phone], [employer] support , CC: MD Sonam Denise; Doris Navarro DO Rehabilitation Inspector: Signed 14-May-2018 Elbow min 3 Views Result: Comments: See Note; NOTES: [facility] Imaging Services [address] [place] [address] Elbow min 3 Views MR#: [id number] Acct: [id number] Name: MARICRUZ GRIGSBY Rep #: [id number] : 1940 F 78 From: Teo Wayne MD PCP: Doris Navarro DO Status: [facility] Study: Elbow min 3 Views Date of Exam: 05/14/18 Exam# [id number] Ordering Dr: Zee eDnise MD STUD Y: X-RAY - LEFT ELBOW [...] Teo Wayne MD at 10:12 EDT Tel [phone], Service support , CC: MD Sonam Denise; Doris Navarro DO Rehabilitation Inspector: Signed 14-May-2018 Shoulder min 2 Views Result: Comments: See Note; NOTES: [facility] Imaging Services [address] [place] [address] Shoulder min 2 Views MR#: [id number] Acct: [id number] Name: MARICRUZ GRIGSBY Rep #: [id number] : 1940 F 78 From: Teo Wayne MD PCP: Doris Navarro DO Status: REG ER Study: Shoulder min 2 Views Date of Exam: 05/14/18 Exam# [id number] Ordering Dr: Zee Denise MD STUDY: X-RAY [...] Wayne MD at 11:02 EDT Tel [phone], Service support , CC: MD Sonam Denise; Doris Navarro DO Rehabilitation Inspector: Signed 06-Feb-2018 History and Physical Exam Result: Comments: See Note; NOTES: [facility] Medical Records Department [address] [place] [address] History and Physical 02/06/182050 MR#: [id number] Acct: [id number] Name: MARICRUZ GRIGSBY Rep #: [id number] : 1940 77 From: María Barnes MD [...] cholecystectomy Psychiatric History: No pertinent psych hx 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 This note was generated with CombiMatrix software. It may contain incorrect words, spelling, and punctuation that were not noted in checking the note before signing. Code Visit OBSV E AND M: 81765 Initial observation care L3 07/12/08 05 2108 <Electronically signed by María Barnes MD> Date María Barnes MD Cosigner Signature: Date (if applicable) CC: María Barnes; Doris Navarro DO Signed 06-Feb-2018 Brain/Head without Contrast Result: Comments: See Note; NOTES: [facility] Imaging Services [address] [facility] [place] [address] Brain/Head without Contrast MR#: [id number] Acct: [id number] Name: MARICRUZ GRIGSBY Rep #: [id number] : 1940 F 77 From: Renata Lee MD PCP: Doris Navarro DO Status: REG Study: Brain/Head without Contrast Date of Exam: 02/06/18 Exam# [id number] Ordering Dr: Cameron Marte MD STUDY: CT [...] , CC: Doris Navarro DO; Jered Marte Rehabilitation Inspector: Signed 06-Feb-2018 Chest 1 View Result: Comments: See Note; NOTES: [facility] Imaging Services [address] [place] [address] Chest 1 View MR#: [id number] Acct: [id number] Name: MARICRUZ GRIGSBY Rep #: [id number] : 1940 F 77 From: Renata Lee MD PCP: Doris Navarro DO Status: [facility] ER Study: Chest 1 View Date of Exam: 02/06/18 Exam# [id number] Ordering Dr: Jered Marte MD STUDY: X-RAY [...] , CC: Doris Navarro DO; Jered Marte Rehabilitation Inspector: Signed 25-Nov-2017 Liver Result: Comments: See Note; NOTES: [facility] Imaging Services [address] [place] [address] Liver MR#: [id number] Acct: [id number] Name: MARICRUZ GRIGSBY Stuart Rep #: [id number] : 1940 F 77 From: Mack Hand MD PCP: Doris Navarro DO Status: REG CLI Study: Liver Date of Exam: 11/25/17 Exam# [id number] Ordering Dr: Doris Navarro DO STUDY: ABDOMINAL ULTRASOUND - RIGHT UPPER [...] MD at 12:34 EDT , Service support [phone], CC: Doris Navarro DO Rehabilitation Inspector: Signed 29-Oct-2017 Hip 2-3 Views with Pelvis Result: Comments: See Note; NOTES: [facility] Imaging Services [address] [place] [address] Hip 2-3 Views with Pelvis MR#: [id number] Acct: [id number] Name: MARICRUZ GRIGSBY #: [id number] : 1940 F 77 From: Benji Finch PCP: Doris Navarro DO Status: REG CLI Study: Hip 2-3 Views with Pelvis Date of Exam: 10/29/17 Exam# [id number] Ordering Dr: Thelma Sofia MANAGER OUTPATIENT- C STUDY: X-RAY - PELVIS AND LEFT [...] , CC: QUINN Sofia; Doris Navarro DO Rehabilitation Inspector: Signed 27-Aug-2017 12 Lead Electrocardiogram Result: Comments: See Note; NOTES: [facility] Cardiovascular Services [address] [place] [address] 12 Lead EKG 08/24/17 1719 MR#: [id number] Acct: [id number] Name: PORTIA GRIGSBY Rep #: [id number] : 1940 77 From: Maurilio Meraz MD [...] C onfirmed by SOLEDAD STREETER, MAURILIO ([id number]), international editorial producer STACY CARTER ([id number]) on 08/27/2017 10:37:34 AM Referred By: EITAN Confirmed By:MAURILIO MERAZ MD 08/27/17 1037 Date Maurilio Meraz MD CC: Doris Melanie KBEEDE Signed 25-Aug-2017 Emergency Department Summary Result: Comments: See Note; NOTES: [facility] Medical Records Department [address] [place] [address] Emergency Department Summary 08/24/17 1709 MR#: [id number] Acct: [id number] Name: MARICRUZ GRIGSBY Rep #: [id number] : 1940 77 From: Zee Denise MD [...] at home. She has no history of CO PE or DVT she does have history [...] be altered This note was generated with [employer] dictation software. It may contain incorrect words, [...] your Primary Care Provider. Call [facility] ([phone]) or report to the closest Emergency Room. Call 911 if necessary. 08/25/17 0001 <Electronically sig radha by Zee Denise MD> Date Zee Denise MD Cosigner Signature (If Indicated): Date CC: Doris Navarro DO 24-Aug-2017 Discharge Instruction Result: Comments: See Note; NOTES: [facility] Medical Records Department [address] [place] [address] Discharge Instruction 08/24/17 1820 MR#: [id number] Acct: [id number] Name: MARICRUZ GRIGSBY Rep #: [id number] : 1940 77 From: Zee Denise MD [...] problems, contact your Primary Care Provider. Call [facility] ([phone]) or report to the closest [facility] Room. Call 911 if necessary. 08/24/17 1821 <Electronically signed by Zee Denise MD> Date Zee Denise MD Cosign er Signature (If Indicated): Date CC: Doris Navarro DO 24-Aug-2017 Chest PA and Lateral Result: Comments: See Note; NOTES: [facility] Imaging Services [address] [place] [address] Chest PA and Lateral MR#: [id number] Acct: [id number] Name: MARICRUZ GRIGSBY Stuart Rep #: [id number] : 1940 F 77 From: Stacy Tapia MD PCP: Doris Navarro DO Status: REG ER Study: Chest PA and Lateral Date of Exam: 08/24/17 Exam# [id number] Ordering Dr: Zee Denise MD XR Chest [...] support , CC: MD Sonam Denise; Doris Navaror DO Rehabilitation Inspector: Signed 07-Aug-2017 Chest PA and Lateral Result: Comments: See Note; NOTES: [facility] Imaging Services [address] [place] [address] Chest PA and Lateral MR#: [id number] Acct: [id number] Name: CLIFFORD MARICRUZ CURZ Rep #: [id number] : 1940 F 77 From: Teo Wayne MD PCP: Doris Navarro DO Status: REG CLI Study: Chest PA and Lateral Date of Exam: 08/07/17 Exam# [id number] Ordering Dr: Doris Navarro DO STUDY: X-RAY [...] Logan i, MD at 13:49 EST Tel [phone], Service support , CC: Doris Navarro DO Rehabilitation Inspector: Signed 20-Nov-2016 Operative Report Result: Comments: See Note; NOTES: [facility] Medical Records Department [address] [place] [address] Operative Report 11/14/16 0736 MR#: [id number] Acct: [id number] Name: MARICRUZ BREAUX Rep #: [id number] : 1940 76 From: Liza Duron DO PCP: Doris Navarro DO Status: [facility] Y Location: [facility] Report of Operation Date of Procedure: 11/14/16 Pre-Operative Diagnosi s: Right third and fourth trigger fingers Post-Operative Diagnosis: Name Surgery/Procedure Performed:: Right hand third and fourth A1 shannan release Type of Anesthesia:: Block,Sawgrass Anesthesiologist: Fox Michaels Estimated Blood Loss (mL): [...] Dragon disclaimer This note was generated with Quand[employer] dictation software. It may contain incorrect words, spellin g, and punctuation that were not noted in checking the note before signing. 11/20/16 1231 <Electronically signed by Liza Duron DO> Date Liza Duron DO CC: Liza Duron DO; Doris Navarro DO Signed 16-Nov-2016 Oncology Progress Note Result: Comments: See Note; NOTES: [facility] Medical Records Department [address] [facility] [place] [address] Oncology Progress Note MR#: [id number] Acct: [id number] Name: PORTIA GRIGSBY Rep #: [id number] : 1940 76 From: Sal Urrutia MD [...] level. Sal Urrutia MD T: NTS JOB: [id number] 11/16/16 0850 <Electronically signed by Sal Urrutia MD> Date Sal Urrutia MD Cosigner Signature (If Indicated): Date CC: Date Dictated: 11/08/16 1305 Date Transcribed: 11/08/16 1305 Rehabilitation Inspector: Signed 14-Nov-2016 Discharge Instruction Result: Comments: See Note; NOTES: [facility] Medical Records Department [address] [place] [address] Instructions for Home/Discharge Instructions 11/14/16 0735 MR#: [id number] Acct: [id number] Name: MARICRUZ GRIGSBY Rep #: [id number] : 1940 76 From: Liza Duron DO [...] mg PO DAILY 11/09/16 Hydrocodone Bitart/Apap 5-325 [Royal 5MG- 325MG] 1 - 2 tablet PO Q6H PRN PRN #20 tablet 11/14/16 The following prescriptions were given: Hydrocodone Bitart/Apap 5- 325 [Royal 5MG-325MG] 1 - 2 tablet PO Q6H PRN PRN #20 tablet PRN Reason: Pain Primary Care Physician: Doris Navarro DO [Primary Care Provider] - Please Follow Up With: Liza Duron [phone] 11/14/16 0736 <Electronically signed by Liza Duron DO> Date Liza Duron DO CC: Doris Navarro DO 20-Jul-2016 Chest PA and Lateral Result: Comments: See Note; NOTES: [facility] Imaging Services [address] [place] [address] Verdana 4d Chest PA and Lateral MR#: [id number] Acct: [id number] Name: JAQUAN GRIGSBY Rep #: [id number] : 1940 F 76 From: Mack Hand MD PCP: Doris Navarro DO Status: REG CLI Study: Chest PA and Lateral Date of Exam: 07/20/16 Exam# [id number] Ordering Dr: Doris Navarro DO STUDY: X-RAY [...] at 12:24 EST Tel , Service support [phone], CC: Doris Navarro DO Rehabilitation Inspector: Signed 26-Jan-2016 Echocardiogram Complete Result: Comments: See Note; NOTES: [facility] Cardiovascular Services [address] [place] [address] Echo Complete 01/26/16 1008 MR#: [id number] Acct: [id number] Name: MARICRUZ PARMAR Rep #: [id number] : 1940 75 From: Mack Dickerson MD Attending Dr: Maggie Tracey DO Status: REG CLI Ordering Dr: Maggie Tracey DO Date: 01/26/16 Location: [facility] Sex: F C Admitt ed: Reason For [...] Physician: Maggie Tracey Performed By: Sharyn Bear [facility] 01/26/161611 Date ___ Mack Dickerson MD CC: Maggie Tracey DO Date Dictated: 01/26/16 1008 Date Transcribed: 01/26/161611 Rehabilitation Inspector: Signed 05-Dec-2015 Chest 1 View (Portable) Result: Comments: See Note; NOTES: [facility] Imaging Services [address] [place] [address] Verdana 4d Chest 1 View (Portable) MR#: [id number] Acct: [id number] Name: MARICRUZ PEÑALOZA Rep #: [id number] : 1940 F 75 From: Yari Garcia MD PCP: Maggie Tracey DO Status: PRE ER Study: Chest 1 View (Portable) Date of Exam: 12/05/15 Exam# [id number] Ordering Dr: Johnnie Baez MD STUDY: X-RAY [...] at 16:44 EDT Tel , Service support [phone], RAD/Chest 1 V iew (Portable) IMPRESSION: Underexpansion of the lungs. Mild to moderate cardiomegaly. Electronically Signed: Yari Garcia MD at 16:44 EDT Tel , Service support [phone], CC: Maggie Tracey DO; Johnnie Baez MD Rehabilitation Inspector: Signed 05-Dec-2015 Spirometry (63349) Comments: good effort and curvenormal Result: 05-Dec-2015 EKG (35347) Comments: ekg showed normal sinus rhythym, normal axis, no acute st/t wave changes Result: [MEASUREMENTS ANALYSIS] Date of Test: 12/05/2015 14:27:41; Heart Rate: 93; FL Interval: 202; QRS: 96; QT Interval: 352; Corrected QT Interval (QTc): 409; P Wave Blackburn: 48; QRS Wave Blackburn: -26; T Wave Blackburn : 55; Blood Pressure: 134/64 [ECG DIAGNOSTIC STATEMENTS] Date of Test: 12/05/2015 14:27:41; Summary: Sinus Rhythm WITHIN NORMAL LIMITS 21-Sep-2015 12 Lead Electrocardiogram Result: Comments: See Note; NOTES: [facility] Cardiovascular Services [address] [place] [address] 12 Lead EKG 09/19/15 0908 MR#: [id number] Acct: [id number] Name: MARICRUZ VIGIL Rep #: [id number] : 1940 75 From: Maurilio Meraz MD [...] wave progression Confirmed by SOLEDAD STREETER, MAURILIO ([id number]), international editorial producer STACY CARTER ([id number]) on 09/21/2015 11:27:40 AM Referred By: JE Confirmed By:MAURILIO MERAZ MD 1127 Date Maurilio Meraz MD CC: Maggie Tracey DO Date Dictated: 09/19/15907 Date Transcribed: 09/19/15907 Rehabilitation Inspector: Signed 19-Sep-2015 Discharge Instruction Result: Comments: See Note; NOTES: [facility] Medical Records Department [address] [place] [address] Discharge Instruction 09/19/15 1020 MR#: [id number] Acct: [id number] Name: MARICRUZ GRIGSBY Rep #: [id number] : 1940 75 From: Johnnie Baez MD [...] chest pain, or any unexpected problems, contact [facility] doctor. Call [facility] ([phone]) or report to the closest Emergency Room. Call 911 if necessary. 09/19/15 1755 <Electronically signed by Johnnie Baez MD> Date __ Johnnie Baez MD Cosigner Signature (If Indicated): Date CC: Maggie Tracey DO 19-Sep-2015 Emergency Department Summary Result: Comments: See Note; NOTES: [facility] Medical Records Department [address] [facility] [place] [address] Emergency Department Summary MR#: [id number] Acct: [id number] Name: MARICRUZ GRIGSBY Rep #: [id number] : 1940 75 From: Johnnie Baez MD [...] tachycardia at 112. No acute signs of CO or ischemia. White count 11.4, H and [...] C: Maggie Tracey DO T: CHERI JOB: [id number] 09/19/15 0743 <Electronically signed by Johnnie Baez MD& amp;#62; Date Johnnie Baez MD Cosigner Signature (If Indicated): Date CC: Maggie Tracey DO Date Dictated: 09/19/15 1019 Date Transcribed: 09/19/151018 Rehabilitation Inspector: Signed 07-Sep-2015 Chest PA and Lateral Result: Comments: See Note; NOTES: [facility] Imaging Services [address] [place] [address] Verdana 4d Chest PA and Lateral MR#: [id number] Acct: [id number] Name: MARICRUZ HADLEY Rep #: [id number] : 1940 F 75 From: Kali Raymundo MD PCP: Maggie Tracey DO Status: REG CLI Study: Chest PA and Lateral Date of Exam: 09/07/15 Exam# [id number] Ordering Dr: Maggie Irwin DO STUDY: X-RAY [...] FACR at 11:41 EST , Service support [phone], RAD/Chest PA and Lateral IMPRESSION: No significant changes. Stable moderate cardiomegaly. Bilateral interstitial changes more prominent on the right. Wanda velazquez Signed: Kali Raymundo MD, FACR at 11:41 EST , Service support [phone], CC: Maggie Tracey DO Rehabilitation Inspector: Signed 07-Sep-2015 Spirometry (79457) Comments: good effort and curve normal Result: 24-Mar-2015 PT Discharge Summary Result: Comments: See Note; NOTES: [facility] [address] [place] [address] Fax REHABILITATION SERVICES DISCHARGE SUMMARY MR#: [id number] Acct: [id number] Name: MARICRUZ GRIGSBY Rep #: [id number] : 1940 75 From: Yuni Clark Referring [...] discharge. Yuni Clark, PT T: NTS JOB: [id number] <Electronically signed by Yuni Clark > 03/24/15 1227 CC: Maggie Tracey DO Signed 17-Feb-2015 Inital Evaluation - PT Result: Comments: See Note; NOTES: [facility] [address] [place] [address] Fax REHABILITATION SERVICES INITIAL EVALUATION MR#: [id number] Acct: [id number] Name: MARICRUZ GRIGSBY Rep #: [id number] : 1940 75 From: Yuni Clark Referring Dr.: Maggie Tracey DO Status: REG RCR Insurance : MEDICARE PART A B Eval Date: [facility] DATE OF SERVICE: 02/16/2015 SUBJECTIVE: This patient [...] care. Yuni Clark, PT T: NTS JOB: [id number] <Electronically signed by Yuni Clark > 02/17/15 1011 CC: Signed For Medicare only, by seng yao this I certify the plan of care. Physicians Signature Date 08-Feb-2015 L/S Spine Min 4 Views Result: Comments: See Note; NOTES: [facility] Imaging Services [address] [place] [address] Radiology Report MR#: [id number] Acct: [id number] Name: CLIFFORD HOBBSMARICRUZ THORNE Rep #: [id number] : 1940 F 74 From: Teo Wayne MD PCP: Maggie Tracey DO Status: REG CLI Study: L/S Spine Min 4 Views Date of Exam: 02/08/15 Exam# [id number] Ordering Dr: Maggie Tracey DO STUDY: X-RAY [...] Wayne MD a t 12:30 EDT Tel [phone], Service support [phone], RAD/L/S Spine Min 4 Views IMPRESSION: Degenerative changes of the spine, as detailed above. Electro nically Signed: Teo Wayne MD at 12:30 EDT Tel [phone], Service support [phone], CC: Maggie Tracey DO Rehabilitation Inspector: Signed 15-Nov-2014 Thyroid Result: Comments: See Note; NOTES: [facility] Imaging Services [address] [place] [address] Ultrasound Report MR#: [id number] Acct: [id number] Name: MARICRUZ GRIGSBY Rep #: [id number] : 1940 F 74 From: Julián Trivedi DO PCP: Maggie Tracey DO Status: REG CLI Study: Thyroid Date of Exam: 11/15/14 Exam# [id number] Ordering Dr: Maggie Tracey DO STUDY: THYROID [...] Julián Trivedi DO at 16:51 EDT Tel [phone], Service support [phone], Fax CC: Maggie Tracey DO Rehabilitation Inspector: Signed 13-Sep-2014 Chest PA and Lateral Result: Comments: See Note; NOTES: [facility] Imaging Services [address] [place] [address] Radiology Report MR#: [id number] Acct: [id number] Name: MARICRUZ GRIGSBY Rep #: [id number] : 1940 F 74 From: Donato Abdi MD PCP: Maggie Traecy DO Status: REG CLI Study: Chest PA and Lateral Date of Exam: 09/13/14 Exam# [id number] Ordering Dr: Maggie Tracey DO STUDY: X [...] at 12:01 EST Tel , Service support [phone], CC: Maggie Tracey DO Rehabilitation Inspector: Signed 15-Jul-2014 Chest PA and Lateral Result: Comments: See Note; NOTES: [facility] Imaging Services [address] [place] [address] Radiology Report MR#: [id number] Acct: [id number] Name: CLIFFORD CRUZJAQUANMARICRUZ Rep #: [id number] : 1940 F 74 From: Teo Wayne MD PCP: Maggie Tracey DO Status: REG CLI Study: Chest PA and Lateral Date of Exam: 07/15/14 Exam# [id number] Ordering Dr: Maggie Tracey DO SANDI DY: [...] Teo Wayne MD at 9:42 EST Tel [phone], Service support [phone], CC: Maggie Tracey DO Rehabilitation Inspector: Signed 10-May-2014 Bilat Scrn Digital & CAD Result: Comments: See Note; NOTES: [facility] Imaging Services [address] [place] [address] Breast Imaging Report MR#: [id number] Acct: [id number] Name: JOSE AMARICRUZ GIANG ep #: [id number] : 1940 F 74 From: Gene Phillips PCP: Maggie Tracey DO Status: REG CLI Exam# [id number] Ordering Dr: Maggie Tracey DO MAMMOGRAPHY - [...] these results will be sent to the [facility] ient by the facility within 30 days. Approximately 10% of breast cancers are not detected by mammography. A normal mammogram should not delay biopsy of a clinically suspicious abnormality. Electro nically Signed: Jessenia Phillips MD at 19:48 EDT Tel , Service support [phone], CC: Maggie Tracey DO Rehabilitation Inspector: Signed 10-Sep-2013 Dexa Bone Density Study (HP) Result: Comments: See Note; NOTES: [facility] Imaging Services [address] [place] [address] Bone Density Report MR#: [id number] Acct: [id number] Name: MARICRUZ GRIGSBY Rep #: [id number] : 1940 F 73 From: Teo Wayne MD PCP: Maggie Tracey DO Status: REG CLI Study: Dexa Bone Density Study (HP) Date of Exam: 09/10/13 Exam# [id number] Ordering Dr: Maggie Tracey DO STUDY: DUAL [...] M.D. at 11:04 EST , Service support [phone], CC: Maggie Tracey DO Rehabilitation Inspector: Signed Immunization Name Dates Details Influenza (3 years and up) on: 04-Jun-2007 Comments: Lot #: [id number] date: 01/03Amount given: 0.5 MLRoute: IMSite given: Left deltoidGiven by: Nathaniel Beal LPN Influenza (3 years and up) on: 12-May-2009 Comments: Lot #[id number]-left deltoidgiven by:CDH Family History Unknown Family Member Name Dates Details Cancer Status: Active Diabetes Mellitus Status: Active Father Comments: CO, hypercholesterolemia Status: Active First Degree Relatives Comments: [...] kg/m2 Body Surface Area Calculated 2.06 m2 72-Eny-028304:15 Pulse 81 /min Comments: Pattern: Regular Respiration [...] kg/m2 Body Surface Area Calculated 2.06 m2 32-Vrr-090717:32 Temperature 97.6 f Comments: Method: Temporal Pulse [...] kg/m2 Body Surface Area Calculated 2.06 m2 6-Uya-959415:26 Comments: orthostatic bp assessment: 12:10pmlying- 170/90 76hrsitting- [...] administered 81mg asa orally at this time also-[facility] BP Systolic 156 mm[Hg] Comments: Patient Position: [...] Value Details :50 Rapid Strep Test, Office (22548) Rapid Strep Test, Office Negative (Normal) :58 TSH (80516) Comments: PATIENT NOT FASTINGPERFORMED BY: [facility]Tr[facility]6370 [facility] [id number] TSH 5.590 {uIU/mL} (Abnormal) Range: 0.450-4.500 :58 T4, FREE (THYROXINE) (38313) Comments: PATIENT NOT FASTINGPERFORMED BY: IoT TechnologiesMeadowlands Hospital Medical CenterPqisyt1153 [facility] [id number] T4,Free(Direct) 1.81 ng/dL (Abnormal) Range: 0.82-1.77 :58 T3, FREE (TRIDOTHYRONINE) (77989) Comments: PATIENT NOT FASTINGPERFORMED BY: [facility]Tr[facility]6370 [facility] [id number] Triiodothyronine (T3), Free 2.1 pg/mL (Normal) Range: [...] Muscle ABS Comments: Comments: ANTI-LIVER/KIDNEY MICRO AB [id number] [facility] (refer to report for specific site)refer [...] MELI-DIRECT Negative (Normal) Comments: Performed at: - [facility] [id number] Director: Constantine Christianson PhD, Phone: [phone] :[phone] Ceruloplasmin Comments: Comments: ANTI-LIVER/KIDNEY MICRO AB [id number] [facility] (refer to report for specific site)refer to report for address and phone number CERULOPLAS 1560 22.0 mg/dL (Normal) Range: 19.0-39.0 :44 CMV Acute Antibody IgM Comments: Comments: ANTI-LIVER/KIDNEY MICRO AB [id number] [facility] (refer to report for specific site)refer to report for address and phone number CMVIgM AB < 30.0 AU/mL (Normal) Range: 0.0-29.9 Comments: Negative <30.0 Equivocal 30.0 - 34.9 Positive >34.9A positive result is generally indicative of acuteinfection, reactivation or persistent IgM production. :44 Ferritin Comments: Comments: ANTI-LIVER/KIDNEY MICRO AB [id number] SER/[facility] [address]ub40[address] [place], [address] FERRITIN 236 ng/mL (Normal) Range: 8-252 :44 Free T3 Comments: Comments: ANTI-LIVER/KIDNEY MICRO AB [id number] SER/[facility] Jcpigbmuxe7527 [place], [address] FREE T3 1.6 pg/mL (Abnormal) Range: 2.18-3.98 :44 GGTP 64 U/L (Abnormal) Comments: Comments: ANTI-LIVER/KIDNEY MICRO AB [id number] SER/[facility] [address] [place], [address] Range: 5-55 :44 Hepatitis Panel Acute Comments: Comments: ANTI-LIVER/KIDNEY MICRO AB [id number] [facility] (refer to report for specific site)refer to report for address and phone number HEP C AB <0.1 {s/co_ratio} (Normal) Range: 0.0-0.9 Comments: Negative: < 0.8 Indeterminate: 0.8 - 0.9 Positive: > 0.9 The CDC recommends that a positive HCV antibody result be followed up with a HCV Nucleic Acid Amplification test (963340). HB CORE [id number] Negative (Normal) HB SURF AG Negative (Normal) HEP A IgM 6734 Negative (Normal) :44 Liver Profile Comments: Comments: ANTI-LIVER/KIDNEY MICRO AB [id number] SER/[facility] [address] [place], [address] D BILI 0.17 mg/dL (Normal) Range: 0.00-0.30 T BILI 0.60 mg/dL (Normal) Range: 0.20-1.00 ALT 48 U/L (Normal) Range: 13-56 ALK P 93 U/L (Normal) Range: 45-117 AST 43 U/L (Abnormal) Range: 15-37 GLOB 3.5 g/dL (Normal) Range: 2.2-4.2 ALB 3.7 g/dL (Normal) Range: 3.2-5.0 T PROT 7.2 g/dL (Normal) Range: 6.4-8.2 :44 Miscellaneous Lab Procedure Comments: Comments: ANTI-LIVER/KIDNEY MICRO AB [id number] SER/RFTest(s) Ordered: ANTI-LIVER/KIDNEY MICROS AB [id number] SER/[facility] [address]qzargpbz87[address] [place], [address] MISC Comments: TEST RESULT UNITS REF INTERVALLiver- Kidney Microsomal Ab <1.0 Units 0.0 - 20.0 Negative 0.0 - 20.0 LAB (Normal) Equivocal 20.1 - 24.9 Positive >24.9LKM type 1 antibodies are detected in patients withautoimmune hepatitis type 2 and in up to 8% ofpatients wi TEST th chronic HCV infection. [facility]. ORIGINAL REPORT ON FILE IN LAB CONTAINS ADDITIONAL TEST SITE INFORMATION. :44 T4 Free Direct Comments: Comments: ANTI-LIVER/KIDNEY MICRO AB [id number] SER/[facility] Ypt[address] [place] [address], [id number] T4 FREE DIRECT 1.06 ng/dL (Normal) Range: 0.76-1.46 :44 Thyroid Stim Hormone (TSH) Comments: Comments: ANTI-LIVER/KIDNEY MICRO AB [id number] [facility] Fgznhrjusu3758 [facility] [place], [address] TSH 16.40 {uIU/mL} (Abnormal) Range: 0.358-3.74 :44 Transferrin Comments: Comments: ANTI-LIVER/KIDNEY MICRO AB [id number] [facility] (refer to report for specific site)refer to report for address and phone number TRANSFERRN 5228 250 mg/dL (Normal) Range: 200-370 Comments: Performed at: [address] [id number] Director: Constantine Christianson PhD, Phone: [phone] 20-Igv-726897:16 Bedside Glucose Comments: [facility] [address] [address] BEDSIDE GLU 152 mg/dL (Abnormal) Range: 70-110 Comments: MANAGEMENT OF PATIENT CARE PER NURSING PROTOCOL 02-Ewe-554121:45 Basic Metabolic Profile (BMP) Comments: [facility] [address]rtf[address] [place], [place], [id number] GAP 8 (Normal) Range: 5-15 CO2 28.0 [...] A.D.A. criteria.Please note revised GLUCOSE reference range cbyvhmymt36/02/2018. 96-Rld-349285:45 CBC W/Diff, Automated Comments: [facility] [address]yosl[address] [place], [place], [address] Absolute Lymph 1.73 {X10_3/ul} (Normal) Range: 0.83-4.51 [...] 4.2-5.4 WBC 9.5 K/mm3 (Normal) Range: 4.4-11.0 16-Dmt-905364:45 Partial Thromboplast Time Comments: [facility] Zdoxwbjtvl3987 [facility] [place], [address] PTT 33.0 s (Normal) Range: 24.1-36.2 02-Rjr-986292:45 Prothrombin Time w/INR Comments: [facility] Shoszdmpue9288 [facility] [place], [address] INR 0.9 (Normal) PROTIME 12.5 s (Normal) Range: 11.7-14.9 09-Rtz-014267:45 Troponin-I Comments: [facility] Dxordizqhj0257 [facility] [place], [address] TROPONIN-I < 0.015 ng/mL Comments: TROPONIN-I EXPECTED VALUES <0.045 Negative 0.045 - 0.590 Consistent with Cardiac Damage > OR = 0.600 Critical Value Not every elevated troponin is indicative of CO. T (Normal) hesevalues should be used with clinical judgement in examiningthe patient's clinical picture for diagnosis. To establisha diagnosis of CO versus myocardial injury, there must be ademonstrated rise and/ or fall in the troponin values, inaddition to ischemic symptoms, EKG changes, new regionalwall motion abnormality, and/or angiographical evidence. PLEASE NOTE: REFERENCE RANGES EDITED 17 Liver-Kidney <1.0 {Units} Comments: PATIENT NOT FASTINGPERFORMED BY: [facility] Mpjjuj9687 [facility] [id number] 2:14 Microsomal Ab (Normal) Range: 0.0-20.0 Comments: Negative 0.0 - 20.0 Equivocal 20.1 - 24.9 Positive >24.9 . LKM type 1 antibodies are detected in patients with autoimmune hepatitis type 2 and in up to 8% of patients with chronic HCV infection. 09-Xxq-495016:14 HEPATIC FUNCTION PANEL Comments: PATIENT NOT FASTINGPERFORMED BY: [employer]6370 [facility] [id number] (31828) ALT (SGPT) 49 [iU]/L (Abnormal) Range: 0-32 AST (SGOT) 57 [iU]/L (Abnormal) Range: 0-40 Alkaline Phosphatase 100 [iU]/L (Normal) Range: 39-117 Bilirubin, Direct 0.14 mg/dL (Normal) Range: 0.00-0.40 Bilirubin, Total 0.4 mg/dL (Normal) Range: 0.0-1.2 Albumin 4.1 g/dL (Normal) Range: 3.5-4.8 Protein, Total 6.8 g/dL (Normal) Range: 6.0-8.5 89-Jjm-153823:14 HEPATITIS PANEL (37745) Comments: PATIENT NOT FASTINGPERFORMED BY: [employer] Mlzjfj8519 [facility] [id number] Hep C Virus Ab <0.1 {s/co_ratio} (Normal) Range: 0.0-0.9 Comments: Negative: < 0.8 Indeterminate: 0.8 - 0.9 Positive: > 0.9 . The CDC recommends that a positive HCV antibody result be followed up with a HCV Nucleic Acid Amplification test (396039). Hep B Core Ab, IgM Negative (Normal) HBsAg Screen Negative (Normal) Hep A Ab, IgM Negative (Normal) 72-Qxx-391353:14 ANTIMITOCHONDRIAL ANTIBODY Comments: PATIENT NOT FASTINGPERFORMED BY: [facility] EnterprisesS[facility] Cxrmig5263 [facility] [id number] (86336) Mitochondrial (M2) Antibody <20.0 {Units} (Normal) Range: 0.0-20.0 Comments: Negative 0.0 - 20.0 Equivocal 20.1 - 24.9 Positive >24.9 . Mitochondrial (M2) Antibodies are found in 90-96% of patients with primary biliary cirrhosis. 36-Niv-445049:14 TRANSFERRIN (69194) Comments: PATIENT NOT FASTINGPERFORMED BY: [facility]6370 [facility] [id number] Transferrin 226 mg/dL (Normal) Range: 200-370 03-Cjf-230109:14 GGT (GAMMA GLUTAMYLTRANSFERASE) Comments: PATIENT NOT FASTINGPERFORMED BY: [facility]6370 [facility] [id number] (39810) GGT 59 [iU]/L (Normal) Range: 0-60 37-Sfw-819779:14 FERRITIN (16533) Comments: PATIENT NOT FASTINGPERFORMED BY: [facility] Rpwkff7511 [facility] [id number] Ferritin, Serum 545 ng/mL (Abnormal) Range: 15-150 78-Quu-786085:14 CMV IGM ANTBDY (27841) Comments: PATIENT NOT FASTINGPERFORMED BY: [facility] Kephyw5322 [facility] [id number] Cytomegalovirus (CMV) Ab, IgM <30.0 AU/mL (Normal) Range: 0.0-29.9 Comments: Negative <30.0 Equivocal 30.0 - 34.9 Positive >34.9 A positive result is generally indicative of acute infection, reactivation or persistent IgM production. 73-Ipy-671208:14 CERULOPLASMIN (68265) Comments: PATIENT NOT FASTINGPERFORMED BY: [facility] Qyfycb6636 [facility] [id number] Ceruloplasmin 26.3 mg/dL (Normal) Range: 19.0-39.0 44-Tye-969456:14 ASM (ANTI SMOOTH MUSCLE Comments: PATIENT NOT FASTINGPERFORMED BY: CORTEZ Griffin Ekvwqz2594 [facility] [place] [id number] ANTIBODY) (46677) Actin (Smooth Muscle) Antibody 5 {Units} (Normal) Range: 0-19 Comments: Negative 0 - 19 Weak positive 20 - 30 Moderate to strong positive >30 . Actin Antibodies are found in 52-85% of patients with autoimmune hepatitis or chronic active hepatitis and in 22% of patients with primary biliary cirrhosis. 04-Bbw-407800:14 MELI (ANTINUCLEAR ANTIBODY) Comments: PATIENT NOT FASTINGPERFORMED BY: CORTEZ [facility] EnterprisesS[facility] Idlkhh8177 [facility] [id number] (11580) MELI Direct Negative (Normal) 97-Jpi-964637:33 HgA1C , Office (45398) HgA1C , Office 7.2 % (Abnormal) Range: 4.6 - 7.1 50-Kzg-296543:38 MELI (ANTINUCLEAR ANTIBODY) Comments: PATIENT NOT FASTINGPERFORMED BY: [facility] Fxhbcy3806 [facility] [id number] (40354) MELI Direct Negative (Normal) 08-Vgl-012876:38 VITAMIN B-12 (CYANOCOBALAMIN) Comments: PATIENT NOT FASTINGPERFORMED BY: [facility] EnterprisesS[facility] Erhjes9002 [facility] [id number] (13378) Vitamin B12 463 pg/mL (Normal) Range: 232-1245 11-Hep-654155:38 TSH (13428) Comments: PATIENT NOT FASTINGPERFORMED BY: [facility] Ctsquk1629 [facility] [id number] TSH 0.062 {uIU/mL} (Abnormal) Range: 0.450-4.500 57-Wrj-554436:38 SED RATE ERYTHROCYTE (22767) Comments: PATIENT NOT FASTINGPERFORMED BY: CORTEZ [facility] Uttvhd9272 [facility] [id number] Sedimentation Rate-Westergren 7 mm/h (Normal) Range: 0-40 92-Dxp-787757:38 METABOLIC PANEL, COMPREHENSIVE Comments: PATIENT NOT FASTINGPERFORMED BY: [facility] Osmlec3171 [facility] [id number] (42866) ALT (SGPT) 52 [iU]/L (Abnormal) Range: 0-32 [...] 8-27 Glucose 134 mg/dL (Abnormal) Range: 65-99 10-Fgg-089034:38 C-REACTIVE PROTEIN (75012) Comments: PATIENT NOT FASTINGPERFORMED BY: [facility]CoMeadowlands Hospital Medical CenterVlsycu2840 [facility] [id number] C-Reactive Protein, Quant 4.8 mg/L (Normal) Range: 0.0-4.9 45-Llr-712702:38 CBC (AUTO) (19859) Comments: PATIENT NOT FASTINGPERFORMED BY: [facility]CoMeadowlands Hospital Medical CenterEcwwww0402 [facility] [id number] Platelets 248 {x10E3/uL} Range: 150-379 (Normal) RDW [...] mg/L (Abnormal) Comments: PATIENT NOT FASTINGPERFORMED BY: [employer] [facility] [id number] BY: [address] [id number] 2:25 Serum Range: 0.6-2.4 Comments: Siemens StudyTubeulite 2000 Immunochemiluminometric assay (ICMA) 1-Pep-655168:25 Immunoglobulins Comments: PATIENT NOT FASTINGPERFORMED BY: [employer]6370 [facility] [id number] BY: [employer] [id number] Iga/Ige/Igg/Igm (GAME) (65041) Immunoglobulin E, Total 259 {IU/mL} (Abnormal) Range: 0-100 Immunoglobulin M, Qn, Serum 113 mg/dL (Normal) Range: 26-217 Immunoglobulin A, Qn, Serum 130 mg/dL (Normal) Range: 64-422 Immunoglobulin G, Qn, Serum 837 mg/dL (Normal) Range: 700-1600 1-Kbl-388410:25 LDH (LD) (LACTATE Comments: PATIENT NOT FASTINGPERFORMED BY: [employer] [id number] BY: [address] [id number] DEHYDROGENASE) (20880) LDH 195 [iU]/L (Normal) Range: 119-226 5-Oji-425699:25 METABOLIC PANEL, Comments: PATIENT NOT FASTINGPERFORMED BY: IoT TechnologiesJacqueline [place] 4591170 [facility] [id number] BY: [employer] [id number] COMPREHENSIVE (97422) ALT (SGPT) 47 [iU]/L (Abnormal) Range: 0-32 [...] 8-27 Glucose 139 mg/dL (Abnormal) Range: 65-99 3-Lfi-410864:25 CBC, PLATELETS & AUT DIFF Comments: PATIENT NOT FASTINGPERFORMED BY: IoT TechnologiesJacqueline [place] 4591170 [facility] [id number] BY: [employer] [id number] (70706) Immature Grans (Abs) 0.0 {x10E3/uL} (Normal) Range: [...] 3.77-5.28 WBC 7.2 {x10E3/uL} (Normal) Range: 3.4-10.8 45-Abj-785857:28 Microscopic Examination Comments: PATIENT NOT FASTINGPERFORMED BY: [facility] [id number] Bacteria None seen (Normal) Mucus Threads Present (Normal) Cast Type Hyaline casts (Normal) Casts Present {/lpf} (Abnormal) Epithelial Cells (non renal) 0-10 {/hpf} (Normal) Range: 0 - 10 RBC 0-2 {/hpf} (Normal) Range: 0 - 2 WBC >30 {/hpf} (Abnormal) Range: 0 - 5 87-Cwu-343514:24 URINE RANI CULTURE-RADHA COL Comments: PATIENT NOT FASTINGPERFORMED BY: [facility] BankofpokerFrye [facility] [id number] Information: SRC:UC COUNT (89848) Antimicrobial MIHEAD (Normal) Comments: S = Susceptible; I = Intermediate; R = Resistant P = Positive; N = Negative MICS are expressed in micrograms per mL Antibiotic RSLT#1 RSLT#2 RS Susceptibility LT#3 RSLT#4Amoxicillin/Clavulanic Acid SAmpicillin RCefepime SCeftriaxone SCefuroxime SCephalothin SCiprofloxacin SGentamicin SImipenem SNitrofurantoin SPiperacillin RTetracycline STobram ycin STrimethoprim/Sulfa S Result 1 Raoultella Comments: 5,000 Colonies/mL planticola (Abnormal) Urine Final report Culture,Comprehensive (Abnormal) 01-Tvp-924578:28 MICROALBUMIN: CREATININE RATIO Comments: PATIENT NOT FASTINGPERFORMED BY: IoT TechnologiesMeadowlands Hospital Medical CenterMzdpab1011 [facility] [id number] (66581) AND (84951) Alb/Creat Ratio 215.8 {mg/g_creat} (Abnormal) Range: 0.0-30.0 Albumin, Urine 245.4 ug/mL (Normal) Creatinine, Urine 113.7 mg/dL (Normal) 41-Bes-345916:28 URINALYSIS, W/ MICRO (27067) Comments: PATIENT NOT FASTINGPERFORMED BY: [facility] EnterprisesTr[facility]6370 [facility] [id number] Microscopic Examination See below: (Normal) Comments: Microscopic was indicated and was performed. Nitrite, Urine Negative (Normal) Urobilinogen,Semi-Qn 0.2 mg/dL (Normal) Range: 0.2-1.0 Bilirubin Negative (Normal) Occult Blood Negative (Normal) Ketones Negative (Normal) Glucose Trace (Abnormal) Protein 1+ (Abnormal) WBC Esterase 1+ (Abnormal) Appearance Clear (Normal) Urine-Color Yellow (Normal) pH 5.5 (Normal) Range: 5.0-7.5 Specific [place] 1.025 (Normal) Range: 1.005-1.030 88-Pqx-575944:28 METABOLIC PANEL, COMPREHENSIVE Comments: PATIENT NOT FASTINGPERFORMED BY: [place] 2612670 [facility] [id number] (93553) ALT (SGPT) 37 [iU]/L (Abnormal) Range: 0-32 [...] Glucose, Serum 179 mg/dL (Abnormal) Range: 65-99 27-Zvg-703996:28 CBC, PLATELETS & AUT DIFF Comments: PATIENT NOT FASTINGPERFORMED BY: [facility] Bxkied4581 [facility] [id number] (62949) Immature Grans (Abs) 0.0 {x10E3/uL} (Normal) Range: [...] 3.77-5.28 WBC 9.3 {x10E3/uL} (Normal) Range: 3.4-10.8 18-Ffs-441133:28 TSH (THYROID STIMULATING Comments: PATIENT NOT FASTINGPERFORMED BY: IoT TechnologiesMeadowlands Hospital Medical CenterVofnox4216 [facility] [id number] HORMONE) (28401) TSH 23.220 {uIU/mL} (Abnormal) Range: 0.450-4.500 05-Ixi-297198:28 LIPID PANEL (54884) Comments: PATIENT NOT FASTINGPERFORMED BY: IoT TechnologiesMeadowlands Hospital Medical CenterDwhmkz0746 [facility] [id number] LDL/HDL Ratio 1.7 {ratio_units} (Normal) Range: 0.0-3.2 Comments: LDL/HDL Ratio Men Women 1/2 Avg.Risk 1.0 1.5 Av g.Risk 3.6 3.2 2X Avg.Risk 6.2 5.0 3X Avg.Risk 8.0 6.1 LDL Cholesterol Calc 83 mg/dL (Normal) Range: 0-99 VLDL Cholesterol Priscilla 42 mg/dL (Abnormal) Range: 5-40 HDL Cholesterol 48 mg/dL (Normal) Triglycerides 208 mg/dL (Abnormal) Range: 0-149 Cholesterol, Total 173 mg/dL (Normal) Range: 100-199 45-Xwc-115044:28 CALCIFEDIOL (00242) Comments: PATIENT NOT FASTINGPERFORMED BY: [facility] Jarddh2875 [address] [place] [id number] Vitamin D, 25-Hydroxy 25.4 ng/mL (Abnormal) Range: 30.0-100.0 Comments: Vitamin D deficiency has been defined by the [place]ermit ofMedicine and an Endocrine Society practice guideline as alevel of serum 25-OH vitamin D less than 20 ng/mL (1,2).The Endocrine Society went on to further define vitamin Dinsufficiency as a level between 21 and 29 ng/mL (2).1. IOM ([place]ermit of Medicine). 2010. Dietary reference intakes for calcium and D. [place]: The National Academies Press.2. Rachel MF, Yael MARLEY, Dunia HERRERA, et al. Evaluation, treatment, and prevention of vitamin D deficiency: an Endocrine Society clinical practice guideline. JCEM. 2010; 96(7):1911-30. 43-Fyj-102739:40 Basic Metabolic Profile (BMP) Comments: 'TROP' Serial specimen #1, #2, #3, or #4: [address] [place] [address] [address]if[address] [place], [address] GAP 11 (Normal) Range: 5-15 CO2 24.0 [...] 126 mg/dLsuggests DIABETES MELLITUS per A.D.A. criteria. 37-Aum-339862:40 BNP,B-Type NATRIURETIC PEPTIDE Comments: [facility] Ntcpiqztaj4[address] [place], [place], [address] B-TYPE SANJU PEP 13.3 pg/mL (Normal) Range: 0-100 14-Jjc-451243:40 CBC W/Diff, Automated Comments: [facility] Cwjvnsvlew27[address] [place], [place], [address] Absolute Lymph 1.65 {X10_3/ul} (Normal) Range: 0.83-4.51 [...] 4.2-5.4 WBC 4.1 K/mm3 (Abnormal) Range: 4.4-11.0 02-Fxc-973311:40 Troponin-I Comments: 'TROP' Serial specimen #1, #2, #3, or #4: [address] [place] [address] [address]zr[address] [place], [address] TROPONIN-I < 0.02 ng/mL (Normal) Comments: TROPONIN-I EXPECTED VALUES <0.05 NEGATIVE 0.06 - 0.59 AT RISK OF CO > OR = 0.60 SUGGEST CO 65-Pwd-240722:08 Microscopic Examination Comments: PATIENT WAS FASTINGPERFORMED BY: [employer]6370 [facility] [id number] Bacteria Few (Normal) Mucus Threads Present (Normal) Cast Type Hyaline casts (Normal) Casts Present {/lpf} (Abnormal) Epithelial Cells (non renal) 0-10 {/hpf} (Normal) Range: 0 - 10 RBC 0-2 {/hpf} (Normal) Range: 0 - 2 WBC 11-30 {/hpf} (Abnormal) Range: 0 - 5 02-Pcj-274613:08 CALCIFIDIOL (24373) VIT D 25 Comments: PATIENT WAS FASTINGPERFORMED BY: LabPostmasterrp Iemynt8271 [facility] [id number] Vitamin D, 25-Hydroxy 33.5 ng/mL (Normal) Range: 30.0-100.0 Comments: Vitamin D deficiency has been defined by the Kermit ofMedicine and an Endocrine Society practice guideline as alevel of serum 25-OH vitamin D less than 20 ng/mL (1,2).The Endocrine Society went on to further define vitamin Dinsufficiency as a level between 21 and 29 ng/mL (2).1. IOM (Kermit of Medicine). 2010. Dietary reference intakes for calcium and D. [place]: The National Academies Press.2. Rachel MF, Yael MARLEY, Dunia HERRERA, et al. Evaluation, treatment, and prevention of vitamin D deficiency: an Endocrine Society clinical practice guideline. JCEM. 2010; 96(7):1911-30. 84-Irp-389218:08 TSH (61208) Comments: PATIENT WAS FASTINGPERFORMED BY: [facility]6370 [facility] [id number] TSH 3.700 {uIU/mL} (Normal) Range: 0.450-4.500 77-Sat-514824:08 LIPID PANEL (26106) Comments: PATIENT WAS FASTINGPERFORMED BY: [facility]6370 [facility] [id number] LDL/HDL Ratio 1.8 {ratio_units} (Normal) Range: 0.0-3.2 Comments: LDL/HDL Ratio Men Women 1/2 Avg.Risk 1.0 1.5 Av g.Risk 3.6 3.2 2X Avg.Risk 6.2 5.0 3X Avg.Risk 8.0 6.1 LDL Cholesterol Calc 84 mg/dL (Normal) Range: 0-99 VLDL Cholesterol Priscilla 49 mg/dL (Abnormal) Range: 5-40 HDL Cholesterol 46 mg/dL (Normal) Triglycerides 243 mg/dL (Abnormal) Range: 0-149 Cholesterol, Total 179 mg/dL (Normal) Range: 100-199 44-Cdp-523651:08 URINALYSIS, W/ MICRO (21076) Comments: PATIENT WAS FASTINGPERFORMED BY: [facility]6370 [facility] [id number] Microscopic Examination See below: (Normal) Comments: Microscopic was indicated and was performed. Nitrite, Urine Negative (Normal) Urobilinogen,Semi-Qn 0.2 mg/dL (Normal) Range: 0.2-1.0 Bilirubin Negative (Normal) Occult Blood Negative (Normal) Ketones Negative (Normal) Glucose Negative (Normal) Protein 2+ (Abnormal) WBC Esterase 1+ (Abnormal) Appearance Clear (Normal) Urine-Color Yellow (Normal) pH 5.5 (Normal) Range: 5.0-7.5 Specific [place] >=1.030 (Abnormal) Range: 1.005-1.030 79-Nyi-399668:08 MICROALBUMIN: CREATININE RATIO Comments: PATIENT WAS FASTINGPERFORMED BY: [facility]6370 [facility] [id number] (35066) AND (69785) Microalb/Creat Ratio 246.3 {mg/g_creat} (Abnormal) Range: 0.0-30.0 Microalbumin, Urine 433.7 ug/mL (Normal) Comments: Results confirmed ondilution. Creatinine, Urine 176.1 mg/dL (Normal) 72-Mje-319056:08 METABOLIC PANEL, COMPREHENSIVE Comments: PATIENT WAS FASTINGPERFORMED BY: [employer]70 [facility] [id number] (02953) ALT (SGPT) 26 [iU]/L (Normal) Range: 0-32 [...] Glucose, Serum 158 mg/dL (Abnormal) Range: 65-99 07-Krh-049465:08 CBC W/AUTO DIFF WBC (22291) Comments: PATIENT WAS FASTINGPERFORMED BY: [employer] Lab[employer]70 [facility] [id number] Immature Grans (Abs) 0.0 {x10E3/uL} (Normal) Range: [...] (Normal) Range: 3.4-10.8 :31 HgA1C , Office (07144) HgA1C , Office 6.6 % (Normal) Range: 4.6 - 7.1 :31 Blood Glucose , Office (93880) Blood Glucose , Office 143 (Normal) :45 CBC W/Diff, Automated Comments: [facility] [address]epxkltvh[address] [place], [place], [address] Absolute Lymph 1.46 {X10_3/ul} (Normal) Range: 0.83-4.51 [...] 4.2-5.4 WBC 12.9 K/mm3 (Abnormal) Range: 4.4-11.0 4-Pfr-618783:45 Comprehensive Metabolic Profil Comments: [facility] [address] [place], [place], [address] GAP 8 (Normal) Range: 5-15 CO2 27.0 [...] 126 mg/dLsuggests DIABETES MELLITUS per A.D.A. criteria. 7-Xqt-067623:45 Prothrombin Time w/INR Comments: [facility] [address] [place], [place], [address] INR 0.9 (Normal) PROTIME 11.6 s (Abnormal) Range: 11.7-14.9 2-Vxe-463509:12 HgA1C , Office (86631) HgA1C , Office 6.5 % (Normal) Range: 4.6 - 7.1 3-Eia-059182:12 Blood Glucose , Office (25146) Blood Glucose , Office 122 (Normal) 53-Koj-90918:39 Lipid Profile Comments: [facility] [address] [place], [place], [address] VLDL 39 mg/dL (Normal) Range: 5-40 LDL [...] report for address and phone number METHYLM [id number] 215 nmol/L (Normal) Range: 0-378 Comments: Performed at: [address] [id number] Director: Frantz Josue MD, Phone: [phone] :[phone] Vitamin B12 531 pg/mL (Normal) Comments: [facility] [address], [address] Range: 211-911 :39 Vitamin D,25 Hydroxy Comments: [facility] [address] [place], [address] Vitamin D 25-OH 44.7 ng/mL (Normal) Comments: Vitamin D 25(OH) Status Range Deficiency <20 ng/mL (50nmol/L) Insuffciency 20 - 30 ng/mL (50 - 75 nmol/L) Sufficiency 30 - 100 ng/mL (75 - 250 nmol/L) Toxicity >100 ng/mL (>250 nmol/L) :29 Bedside Glucose Comments: [facility] LaboratoryPoint of [address] [place] [address] BEDSIDE GLU 139 mg/dL (Abnormal) Range: 70-110 Comments: No Action RequiredMANAGEMENT OF PATIENT CARE PER NURSING PROTOCOL COLON BIOPSY (CHOOSE See Note (Normal) Comments: [facility] [address], [address] :54 SITE) Comments: Patient: MARICRUZ GRIGSBY : 1940 (76/F) Acct Num: [id number] Phys: Constantine Saunders Unit Num: [id number] Loc: LABSPEC Specimen: [id number] Received: 11/05/16 - 163 Spe c Type: [...] one cassette. / RY:edita 11/06/16 TC:1 CPT: 73710 x2 HEADER OPERATION: Colonoscopy with polypectomy PRE-OP [...] Signed Zane Elliott 11/07/16 <signature on file> 90-Bxt-522536:47 CBC W/Diff, Automated Comments: [facility] [address] [place], [place], [address] Absolute Lymph 1.88 {X10_3/ul} (Normal) Range: 0.83-4.51 [...] 4.2-5.4 WBC 8.8 K/mm3 (Normal) Range: 4.4-11.0 82-Xlp-709108:42 Comprehensive Metabolic Profil Comments: Order Date: 10/10/16Order Info: 0786-1 - *CMP Complete Metabolic PanelOrder Info: [id number] - *IBC Iron \E AND E\ Total Iron Binding CapacityOrder Info: 2276-4 - *FerritinComments: Reason:Order Date: 10/10/16Order Info: 88143-2 - *KAPLAMBDA - [place] Lamda Light ChainsComments: Reason:[facility] Kjpraxnxxn4448 [facility]. [place], [place], [address] GAP 9 (Normal) Range: 5-15 CO2 28.0 [...] <126 mg/dLsuggests IMPAIRED HOMEOSTASIS per A.D.A. criteria. 08-Jld-056428:42 Ferritin Comments: Order Date: 10/10/16Order Info: 0786-1 - *CMP Complete Metabolic PanelOrder Info: [id number] - *IBC Iron \E AND E\ Total Iron Binding CapacityOrder Info: 2276-4 - *FerritinComments: Reason:Order Date: 10/10/16Order Info: 60833-1 - *KAPLAMBDA - [place] Lamda Light ChainsComments: Reason:[facility] [address] [place], [place], [address] FERRITIN 45 ng/mL (Normal) Range: 8-252 07-Msn-479503:42 DEEPALI + Protein Elect, Serum Comments: Order Date: 10/10/16Order Info: [id number] - *IMEL DEEPALI + Prot Elec, Serum 1495Order Info: [id number] - *[place]DA - [place] Lamda Light ChainsOrder Date: 10/10/16Order Info: 0282-1 - *IMEL DEEPALI + Prot Elec, Serum 1495Order Info: [id number] - *[place]DA - [place] Lamda Light ChainsOrder Date: 10/10/16Order Info: [id number] - *[place] - [place] Lamda Light ChainsIs Patient Fasting? NComments: Reason:[facility] (refer to report for specific site)refer to report for address and phone number NOTE: Comment (Normal) Comments: Protein electrophoresis scan will follow via computer,mail, or produce inspector delivery. DEEPALI RESULT,S Comment (Normal) Comments: Immunofixation shows IgG monoclonal protein with lambdalight chain specificity. A/G RATIO 1.4 (Normal) Range: 0.7-1.7 GLOBULIN, TOTAL 2.8 g/dL (Normal) Range: 2.2-3.9 M-SPIKE 0.3 g/dL (Abnormal) GAMMA GLOBULIN 0.8 g/dL (Normal) Range: 0.4-1.8 BETA GLOBULIN 0.9 g/dL (Normal) Range: 0.7-1.3 FGTMB-0-AUCB 0.9 g/dL (Normal) Range: 0.4-1.0 HPBBP-4-DRIU 0.2 g/dL (Normal) Range: 0.0-0.4 ALBUMIN 3.7 g/dL (Normal) Range: 2.9-4.4 IMMUNOGL M 100 mg/dL (Normal) Range: 26-217 IMMUNO A 106 mg/dL (Normal) Range: 64-422 IMMUNO G 693 mg/dL (Abnormal) Range: 700-1600 PROTEIN,TOTAL 6.5 g/dL (Normal) Range: 6.0-8.5 58-Oht-904830:42 Iron+Iron Binding Capacity Comments: Order Date: 10/10/16Order Info: 0786-1 - *CMP Complete Metabolic PanelOrder Info: [id number] - *IBC Iron \E AND E\ Total Iron Binding CapacityOrder Info: 2276-4 - *FerritinComments: Reason:Order Date: 10/10/16Order Info: 21601-6 - *[place]DA - [place] Lamda Light ChainsComments: Reason:[facility] [address] [place], [place], [address] IRON SATURATION 15.9 % (Normal) Range: 15.0-55.0 IRON 49 ug/dL (Abnormal) Range: 50-170 TIBC 309 ug/dL (Normal) Range: 250-450 13-Oqq-656127:42 [place] Lambda Light Chains Comments: Order Date: 10/10/16Order Info: 0282-1 - *IMEL DEEPALI + Prot Elec, Serum 1495Order Info: 90703-7 - *[place] - [place] Lamda Light ChainsOrder Date: 10/10/16Order Info: 0282-1 - *IMEL DEEPALI + Prot Elec, Serum 1495Order Info: 50591-1 - *[place] - [place] Lamda Light ChainsOrder Date: 10/10/16Order Info: [id number] - *[place] - [place] Lamda Light ChainsIs Patient Fasting? NComments: Reason:[facility] (refer to report for specific site)refer to report for address and phone number KAPPA/LAMBDA % 0.98 (Normal) Range: 0.26-1.65 Comments: Performed at: - [facility] [address] [id number] Director: Constantine Christianson PhD, Phone: [phone] FR LAMBDA LT CH 19.06 mg/L (Normal) Range: 5.71-26.30 FR KAPPA LT CHN 18.62 mg/L (Normal) Range: 3.30-19.40 90-Euy-668528:06 VITAMIN B-12 (CYANOCOBALAMIN) Comments: PATIENT NOT FASTINGPERFORMED BY: [facility] Klzjst7350 [facility] [id number] ([id number]) Vitamin B12 709 pg/mL (Normal) Range: 211-946 63-Txl-690639:45 Blood Glucose , Office (60329) Blood Glucose , Office 104 (Normal) 18-Lgf-898578:45 HgA1C , Office (44887) HgA1C , Office 6.7 % (Normal) Range: 4.6 - 7.1 :54 CBC W/Diff, Automated Comments: [facility] [address] [place], [place], [address] Absolute Lymph 1.51 {X10_3/ul} (Normal) Range: 0.83-4.51 [...] 4.2-5.4 WBC 7.0 K/mm3 (Normal) Range: 4.4-11.0 51-Lnr-98199:54 Comprehensive Metabolic Profil Comments: [facility] [address] [place], [place], [address] GAP 8 (Normal) Range: 5-15 CO2 28.0 [...] per A.D.A. criteria. :54 Lipid Profile Comments: [facility] [address] [place], [address] VLDL 38 mg/dL (Normal) Range: 5-40 LDL [...] High Risk :54 Microalb:Creat Ratio,Random UR Comments: [facility] [address] [place], [address] MALB:CREAT 223.2 {mg/g_CRE} (Abnormal) MICROALBUMIN,UR 250.0 mg/L (Normal) UR CREAT 112.00 mg/dL (Normal) :54 Thyroid Stim Hormone (TSH) Comments: [facility] [address] [place], [address] TSH 1.13 {uIU/mL} (Normal) Range: 0.358-3.74 :54 Urinalysis, Complete Comments: How was Urine Obtained? CLEAN [facility] [address] [place], [address] MUCUS, URINE 0 SEEN {/hpf} (Normal) [...] Yellow (Normal) :54 Vitamin D,25 Hydroxy Comments: [facility] [address] [place], [address] Vitamin D 25-OH 31.6 ng/mL (Normal) Comments: Vitamin D 25(OH) Status Range Deficiency <20 ng/mL (50nmol/L) Insuffciency 20 - 30 ng/mL (50 - 75 nmol/L) Sufficiency 30 - 100 ng/mL (75 - 250 nmol/L) Toxicity >100 ng/mL (>250 nmol/L) 89-Ato-084893:07 VITAMIN B-12 (CYANOCOBALAMIN) Comments: PATIENT NOT FASTINGPERFORMED BY: [facility]6370 [facility] [id number] ([id number]) Vitamin B12 1119 pg/mL (Abnormal) Range: 211-946 76-Xoh-944472:23 Microscopic Examination Comments: PATIENT WAS FASTINGPERFORMED BY: [place] [address] [facility] [id number] Bacteria Few (Normal) Mucus Threads Present (Normal) Epithelial Cells (non renal) 0-10 {/hpf} (Normal) Range: 0 - 10 RBC 0-2 {/hpf} (Normal) Range: 0 - 2 WBC >30 {/hpf} (Abnormal) Range: 0 - 5 95-Czv-770713:23 VITAMIN B-12 (CYANOCOBALAMIN) Comments: PATIENT WAS FASTINGPERFORMED BY: [facility]6370 [facility] [id number] (62318) Vitamin B12 >2000 pg/mL (Abnormal) Range: 211-946 92-Llp-562107:23 TSH (39259) Comments: PATIENT WAS FASTINGPERFORMED BY: [facility]6370 [facility] [id number] TSH 5.380 {uIU/mL} (Abnormal) Range: 0.450-4.500 77-Isq-652205:23 URINALYSIS, W/ MICRO (58829) Comments: PATIENT WAS FASTINGPERFORMED BY: [facility]6370 [facility] [id number] Microscopic Examination See below: (Normal) Comments: Microscopic was indicated and was performed. Nitrite, Urine Negative (Normal) Urobilinogen,Semi-Qn 0.2 mg/dL (Normal) Range: 0.2-1.0 Bilirubin Negative (Normal) Occult Blood Negative (Normal) Ketones Negative (Normal) Glucose Negative (Normal) Protein Trace (Normal) WBC Esterase 2+ (Abnormal) Appearance Clear (Normal) Urine-Color Yellow (Normal) pH 6.0 (Normal) Range: 5.0-7.5 Specific [place] 1.022 (Normal) Range: 1.005-1.030 60-Lhc-560829:23 MICROALBUMIN: CREATININE RATIO Comments: PATIENT WAS FASTINGPERFORMED BY: [facility]6370 [facility] [id number] (40403) AND (32460) Microalb/Creat Ratio 24.2 {mg/g_creat} (Normal) Range: 0.0-30.0 Microalbumin, Urine 35.4 ug/mL (Normal) Creatinine, Urine 146.0 mg/dL (Normal) 16-Gde-251617:23 METABOLIC PANEL, COMPREHENSIVE Comments: PATIENT WAS FASTINGPERFORMED BY: IoT TechnologiesMeadowlands Hospital Medical CenterSyzqqm3738 [facility] [id number] (03994) ALT (SGPT) 25 [iU]/L (Normal) Range: 0-32 [...] Glucose, Serum 143 mg/dL (Abnormal) Range: 65-99 12-Xds-998651:23 CBC W/AUTO DIFF WBC (55037) Comments: PATIENT WAS FASTINGPERFORMED BY: LabCoMeadowlands Hospital Medical CenterPqaxxx4548 [facility] [id number] Immature Grans (Abs) 0.0 {x10E3/uL} (Normal) Range: [...] 3.77-5.28 WBC 7.4 {x10E3/uL} (Normal) Range: 3.4-10.8 20-Dak-612696:23 CALCIFIDIOL (77376) VIT D 25 Comments: PATIENT WAS FASTINGPERFORMED BY: LabCoMeadowlands Hospital Medical CenterBzahkx6112 [facility] [id number] Vitamin D, 25-Hydroxy 28.9 ng/mL (Abnormal) Range: 30.0-100.0 Comments: Vitamin D deficiency has been defined by the Kermit ofMer[facility] Hospitalcine and an Endocrine Society practice guideline as alevel of serum 25-OH vitamin D less than 20 ng/mL (1,2).The Endocrine Society went on to further define vitamin Dinsufficiency as a level between 21 and 29 ng/mL (2).1. IOM (Kermit of Medicine). 2010. Dietary reference intakes for calcium and D. [place]: The National Academies Press.2. Rachel MF, Yael NC, Dunia HERRERA, et al. Evaluation, treatment, and prevention of vitamin D deficiency: an Endocrine Society clinical practice guideline. JCEM. 2010; 96(7):1911-30. :22 HgA1C , Office (66474) HgA1C , Office 7.1 % (Normal) Range: 4.6 - 7.1 :22 Blood Glucose , Office (44961) Blood Glucose , Office 171 (Normal) 3-Aon-631925:10 Basic Metabolic Profile (BMP) Comments: Serial Specimen #1, #2 or #3? 1'TROP' Serial specimen #1, #2, #3, or #4: 1[facility] [address] [place], [address] GAP 8 (Normal) Range: 5-15 CO2 28.0 [...] 126 mg/dLsuggests DIABETES MELLITUS per A.D.A. criteria. 8-Saf-307225:10 CBC W/Diff, Automated Comments: [facility] [address] [place], [place], [address] Absolute Lymph 1.32 {X10_3/ul} (Normal) Range: 0.83-4.51 [...] Serial specimen #1, #2, #3, or #4: [address] [place] [address] [address] [place], [address] CKRI 1.3 % (Normal) Range: [...] Serial specimen #1, #2, #3, or #4: [address] [place] [address] [address] [place], [address] TROPONIN-I < 0.02 ng/mL (Normal) Comments: TROPONIN-I EXPECTED VALUES <0.05 NEGATIVE 0.06 - 0.59 AT RISK OF CO > OR = 0.60 SUGGEST CO :55 Blood Glucose , Office (02829) Blood Glucose , Office 117 (Normal) :36 HgA1C , Office (35361) HgA1C , Office 7.1 % (Normal) Range: 4.6 - 7.1 :52 CBC W/Diff, Automated Comments: CBCD WITH WBC PER ORDERPark[facility] Health [address]wdlagcxq[address] [place], [address] Absolute Lymph 1.67 {X10_3/ul} (Normal) [...] Range: 4.4-11.0 30-Nov-20156:52 Comprehensive Metabolic Profil Comments: [facility] [address] [place], [place], [address] GAP 10 (Normal) Range: 5-15 CO2 26.0 [...] per A.D.A. criteria. :52 Immunofixation Urine Comments: [facility] (refer to report for specific site)refer to report for address and phone number DEEPALI Urine Comment (Normal) Comments: Immunofixation shows IgG monoclonal protein with lambdalight chain specificity.Bence Jorge Protein positive; lambda type.Performed at: [place] [address] Dire ctor: Constantine Christianson PhD, Phone: [phone] :52 Immunofixation, Serum Comments: [facility] (refer to report for specific site)refer to report for address and phone number DEEPALI RESULT,S Comment (Normal) Comments: Immunofixation shows IgG monoclonal protein with lambdalight chain specificity. IMMUNOGL M 112 mg/dL (Normal) Range: 26-217 IMMUNO A 110 mg/dL (Normal) Range: 64-422 IMMUNO G 783 mg/dL (Normal) Range: 700-1600 :52 [place] Lambda Light Chains Comments: [facility] (refer to report for specific site)refer to report for address and phone number KAPPA/LAMBDA % 1.03 (Normal) Range: 0.26-1.65 FR LAMBDA LT CH 21.11 mg/L (Normal) Range: 5.71-26.30 FR KAPPA LT CHN 21.66 mg/L (Abnormal) Range: 3.30-19.40 :52 Lipid Profile Comments: [facility] [address] [place], [address] ; review OV 12/02/15 VLDL 35 mg/dL [...] High Risk :52 Microalb:Creat Ratio,Random UR Comments: [facility] [address] [place], [address] MALB:CREAT 44.5 {mg/g_CRE} (Abnormal) MICROALBUMIN,UR 68.1 mg/L (Normal) UR CREAT 153.00 mg/dL (Normal) :52 Vitamin B12 268 pg/mL (Normal) Comments: [facility] [address] [place], [address] Range: 211-911 Comments: ADDENDA: normal and has f/u this saturday:52 Vitamin D,25 Hydroxy Comments: [facility] [address] [place], [address] Vitamin D 25-OH 48.8 ng/mL (Normal) Comments: Vitamin D 25(OH) Status Range Deficiency <20 ng/mL (50nmol/L) Insuffciency 20 - 30 ng/mL (50 - 75 nmol/L) Sufficiency 30 - 100 ng/mL (75 - 250 nmol/L) Toxicity >100 ng/mL (>250 nmol/L) :15 Basic Metabolic Profile (BMP) Comments: [facility] [address] [place], [address] GAP 10 (Normal) Range: 5-15 [...] A.D.A. criteria. :15 CBC W/Diff, Automated Comments: [facility] [address] [place], [address] RED CELL MORPH NORM C+C [...] 4.2-5.4 WBC 11.4 K/mm3 (Abnormal) Range: 4.4-11.0 01-Bjf-698548:08 HgA1C , Office (32064) HgA1C , Office 6.8 % (Normal) Range: 4.6 - 7.1 6-Ess-043307:30 FERRITIN (71927) Comments: PATIENT WAS FASTINGPERFORMED BY: [employer]70 [facility] [id number] Ferritin, Serum 121 ng/mL (Normal) Range: 15-150 2-Rag-827448:30 IRON (50968) Comments: PATIENT WAS FASTINGPERFORMED BY: [employer] [id number] Iron, Serum 56 ug/dL (Normal) Range: 35-155 [...] - 159 >60 years 27 - 139 0-Trt-853411:30 TSH (47897) Comments: PATIENT WAS FASTINGPERFORMED BY: LabCoMeadowlands Hospital Medical CenterKztpgu0851 [facility] [id number] TSH 1.660 {uIU/mL} (Normal) Range: 0.450-4.500 0-Szh-843257:30 LIPID PANEL (42188) Comments: PATIENT WAS FASTINGPERFORMED BY: [facility]CoMeadowlands Hospital Medical CenterKdjjgq8616 [facility] [id number] LDL/HDL Ratio 2.1 {ratio_units} (Normal) Range: 0.0-3.2 [...] Cholesterol, Total 190 mg/dL (Normal) Range: 100-199 3-Fwv-906669:30 METABOLIC PANEL, COMPREHENSIVE Comments: PATIENT WAS FASTINGPERFORMED BY: [facility] Kgiwoy9678 [facility] [id number] (86701) ALT (SGPT) 24 [iU]/L (Normal) Range: 0-32 [...] Glucose, Serum 122 mg/dL (Abnormal) Range: 65-99 9-Xjp-101762:30 Vitamin D Hydroxy (82509) Comments: PATIENT WAS FASTINGPERFORMED BY: [place] [id number] Vitamin D, 25-Hydroxy 25.3 ng/mL (Abnormal) Range: 30.0-100.0 Comments: Vitamin D deficiency has been defined by the Kermit ofMedicine and an Endocrine Society practice guideline as alevel of serum 25-OH vitamin D less than 20 ng/mL (1,2).The Endocrine Society went on to further define vitamin Dinsufficiency as a level between 21 and 29 ng/mL (2).1. IOM (Kermit of Medicine). 2010. Dietary reference intakes for calcium and D. [place]: The National Academies Press.2. Rachel MF, Yael NC, Dunia HERRERA, et al. Evaluation, treatment, and prevention of vitamin D deficiency: an Endocrine Society clinical practice guideline. JCEM. 2010; 96(7):1911-30. 8-Cqi-847221:30 CBC W/AUTO DIFF WBC Comments: PATIENT WAS FASTINGPERFORMED BY: [facility] [id number] Information: [id number] (79223) Immature Grans (Abs) 0.0 {x10E3/uL} (Normal) Range: [...] 3.77-5.28 WBC 8.2 {x10E3/uL} (Normal) Range: 3.4-10.8 1-Xnk-155568:30 serum free light chains Comments: PATIENT WAS FASTINGPERFORMED BY: [facility]CoMeadowlands Hospital Medical CenterQfpmtr1305 [facility] [id number] (20620) [place]/Lambda Ratio,S 0.81 (Normal) Range: 0.26-1.65 Free Lambda Lt Chains,S 17.93 mg/L (Normal) Range: 5.71-26.30 Free [place] Lt Chains,S 14.55 mg/L (Normal) Range: 3.30-19.40 6-Quq-737932:08 urine immunofixation (84666) Comments: PATIENT NOT FASTINGPERFORMED BY: LabCoMeadowlands Hospital Medical CenterQmunhr8451 [facility] [id number] Information: SRC:UR [id number] DEEPALI Interpretation:U IFEGL (Normal) Comments: 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 7-Zsl-567258:30 serum immunofixation (79582) Comments: PATIENT WAS FASTINGPERFORMED BY: [facility]CoM[facility] Hospital Medical CenterCnbaga2660 [facility] [id number] Immunoglobulin M, Qn, Serum 99 mg/dL (Normal) Range: 40-230 Immunoglobulin A, Qn, Serum 107 mg/dL (Normal) Range: 91-414 Immunoglobulin G, Qn, Serum 814 mg/dL (Normal) Range: 700-1600 Immunofixation Result, Serum IFEGL (Normal) Comments: Immunofixation shows IgG monoclonal protein with lambda light chainspecificity. :49 CBC W/Diff, Automated Comments: [facility] [address] [place], [place], [address] Absolute Lymph 0.99 {X10_3/ul} (Normal) Range: 0.83-4.51 [...] K/mm3 (Normal) Range: 4.4-11.0 :49 Ferritin Comments: [facility] [address] [place], [address] FERRITIN 80 ng/mL (Normal) Range: 8-252 :49 Hemoglobin A1c Comments: [facility] [address] [place], [address] HGB A1C 6.4 % (Abnormal) Range: 4.2-6.3 :49 Iron Comments: [facility] [address] [place], [address] IRON 43 ug/dL (Abnormal) Range: 50-170 :49 Iron Binding Capacity,Total Comments: [facility] [address] [place], [address] TIBC 336 ug/dL (Normal) Range: 250-450 :49 Protein Electro.Ur-Random Comments: [facility] (refer to report for specific site)refer to report for address and phone number M-SPIKE,U Test not performed (Normal) GAMMA GLOB,U Test not performed (Normal) Comments: Test not performed BETA GLOB,U Test not performed (Normal) Comments: Test not performed BZUZI-3-BAXX,U Test not performed (Normal) Comments: Test not performed FIPYH-1-RHPS,U Test not performed (Normal) Comments: Test not [...] electrophoresis scan will follow via computer,mail, or produce inspector delivery. NOTE: Comment (Normal) Comments: The SPE [...] electrophoresis scan will follow via computer,mail, or produce inspector delivery. A/G RATIO 1.5 (Normal) Range: 0.7-2.0 [...] 6.0-8.5 :49 Thyroid Stim Hormone (TSH) Comments: [facility] [address] [place], [place], [address] TSH 4.43 {uIU/mL} (Abnormal) Range: 0.358-3.74 :49 Vitamin B12 431 pg/mL (Normal) Comments: [facility] [address] [place], [place], [address] Range: 211-911 Comments: ADDENDA: has apt today :58 AFP, Tumor Marker Comments: Is [facility] ? [facility] (refer to report for specific site)refer to report for address and phone number AFP TUMOR 2253 4.9 ng/mL (Normal) Range: 0.0-8.3 Comments: Patricia ECLIA methodologyPerformed at: - [facility] [address] [id number] Director: Constantine Christianson PhD, Phone: [phone] :[phone] CBC W/Diff, Automated Comments: [facility] [address] [place], [place], [address] Absolute Lymph 1.46 {X10_3/ul} (Normal) Range: 0.83-4.51 [...] 4.2-5.4 WBC 7.3 K/mm3 (Normal) Range: 4.4-11.0 26-Aqu-23825:58 Comprehensive Metabolic Profil Comments: [facility] [address] [place], [address] GAP 7 (Normal) Range: 5-15 [...] per A.D.A. criteria. :58 Lipid Profile Comments: [facility] [address] [place], [place], [address] ; non-emergent and has apth this week [...] :58 Vitamin B12 278 pg/mL (Normal) Comments: [facility] Qfdfjjijyi4681 [facility] [place], [address] Range: 211-911 :58 Vitamin D,25 Hydroxy Comments: [facility] [address] [place], [address] Vitamin D 25-OH 38.4 ng/mL (Normal) Comments: Vitamin D 25(OH) Status Range Deficiency <20 ng/mL (50nmol/L) Insuffciency 20 - 30 ng/mL (50 - 75 nmol/L) Sufficiency 30 - 100 ng/mL (75 - 250 nmol/L) Toxicity >100 ng/mL (>250 nmol/L) 77-Trm-386448:07 HgA1C , Office (45747) HgA1C , Office 6.5 % (Normal) Range: 4.6 - 7.1 :43 AFP, Tumor Marker Comments: Is Patient ? NTest performed at:[facility] Qoeuvskeyl1176 [facility] [place] [address] AFP TUMOR 2253 4.8 ng/mL (Normal) Range: 0.0-8.3 Comments: [employer] ECLIA methodologyPerformed at: [employer] - [facility] [address] [id number] Director: Arnold Jefferson PhD, Phone: [phone] :43 CBC W/Diff, Automated Comments: Test performed at:[facility] Scxzmmetzw1200 [facility] [place] [address] Absolute Lymph 1.16 {X10_3/ul} (Normal) [...] 4.2-5.4 WBC 5.6 K/mm3 (Normal) Range: 4.4-11.0 32-Yrd-20858:43 Comprehensive Metabolic Profil Comments: Test performed at:[facility] [address] [place] [address] GAP 11 (Normal) Range: 5-15 CO2 24.0 [...] criteria. :43 Lipid Profile Comments: Test performed at:[facility] [address] [place] [address] VLDL 61 mg/dL (Abnormal) Range: 5-40 [...] :43 Microalb:Creat Ratio,Random UR Comments: Test performed at:[facility] [address] [place] [address] MALB:CREAT 15.9 {mg/g_CRE} (Normal) MICROALBUMIN,UR 19.2 mg/L (Normal) UR CREAT 120.3 mg/dL (Normal) :43 Thyroid Stim Hormone (TSH) Comments: Test performed at:[facility] [address] [place] [address] TSH 2.19 {uIU/mL} (Normal) Range: 0.358-3.74 :43 Vitamin B12 261 pg/mL (Normal) Comments: Test performed at:[facility] [address] [place] [address] Range: 211-911 Comments: ADDENDA: nl and pt has apt tomorrow :43 Vitamin D,25 Hydroxy Comments: Test performed at:[facility] [address] [place] [address] Vitamin D 25-OH 30.9 ng/mL (Normal) Comments: Vitamin D 25(OH) Status Range Deficiency <20 ng/mL (50nmol/L) Insuffciency 20 - 30 ng/mL (50 - 75 nmol/L) Sufficiency 30 - 100 ng/mL (75 - 250 nmol/L) Toxicity >100 ng/mL (>250 nmol/L) :38 HgA1C , Office (34802) HgA1C , Office 6.7 % (Normal) Range: 4.6 - 7.1 :56 AFP, Tumor Marker Comments: Is Patient ? NTest performed at:[facility] [address] [place] [address] ; appt 02/15 AFP TUMOR 2253 4.8 ng/mL (Normal) Range: 0.0-8.3 Comments: [employer] ECLIA methodologyPerformed at: [facility] [address] [id number] Director: Arnold Jefferson PhD, Phone: [phone] CBC W/Diff, Automated Comments: Test performed at:[facility] [address] [place] [address] Absolute Lymph 2.37 {X10_3/ul} (Normal) Range: [...] 4.4-11.0 :56 Lipid Profile Comments: Test performed at:[facility] [address] [place], [place] [id number] VLDL 26 mg/dL (Normal) Range: 5-40 LDL [...] :56 Partial Thromboplast Time Comments: Test performed at:[facility] [address] [place] [address] PTT 30.1 s (Normal) Range: 24.1-36.2 :56 Prothrombin Time w/INR Comments: Test performed at:[facility] [address] [place] [address] INR 1.0 (Normal) PROTIME 12.8 s (Normal) Range: 11.7-14.9 :56 Thyroid Stim Hormone (TSH) Comments: Test performed at:[facility] [address] [place] [address] TSH 5.17 {uIU/mL} (Abnormal) Range: 0.358-3.74 :56 Vitamin B12 293 pg/mL (Normal) Comments: Test performed at:[facility] [address] [place] [address] Range: 211-911 :56 Vitamin D,25 Hydroxy Comments: Test performed at:[facility] [address] [place] [address] Vitamin D 25-OH 32.0 ng/mL (Normal) Comments: Vitamin D 25(OH) Status Range Deficiency <20 ng/mL (50nmol/L) Insuffciency 20 - 30 ng/mL (50 - 75 nmol/L) Sufficiency 30 - 100 ng/mL (75 - 250 nmol/L) Toxicity >100 ng/mL (>250 nmol/L) :07 HgA1C , Office (44306) HgA1C , Office 6.3 % (Normal) Range: 4.6 - 7.1 :33 CBC W/Diff, Automated Comments: Test performed at:[facility] [address] [place] [address] ; non- emergent till apt Absolute [...] 4.2-5.4 WBC 7.3 K/mm3 (Normal) Range: 4.4-11.0 22-Kjg-34142:33 Comprehensive Metabolic Profil Comments: Test performed at:[facility] [address] [place], [place] [id number] GAP 4 (Abnormal) Range: 5-15 CO2 28.0 [...] criteria. :33 Lipid Profile Comments: Test performed at:[facility] [address] [place] [address] VLDL 29 mg/dL (Normal) Range: [...] B12 394 pg/mL (Normal) Comments: Test performed at:[facility] Xvzcwhgoia5054 [facility] [place] [address] Range: 211-911 :33 Vitamin D,25 Hydroxy Comments: Test performed at:[facility] Sxoknfsbpk2708 [facility]. [place], [place] [address] Vitamin D 25-OH 39.6 ng/mL (Normal) Comments: Vitamin D 25(OH) Status Range Deficiency <20 ng/mL (50nmol/L) Insuffciency 20 - 30 ng/mL (50 - 75 nmol/L) Sufficiency 30 - 100 ng/mL (75 - 250 nmol/L) Toxicity >100 ng/mL (>250 nmol/L) :10 HgA1C , Office (01068) HgA1C , Office 6.4 % (Normal) Range: [...] 4.2-5.4 WBC 6.0 K/mm3 (Normal) Range: 4.4-11.0 18-Dkp-56295:42 CMP GAP 5 (Normal) Range: 5-15 CO2 [...] CHOL 167 mg/dL (Normal) Comments: <200 mg/dL Cxiplmxtx766-021 mg/dL Borderline>240 mg/dL High Risk TRIG 200 mg/dL (Abnormal) Range: 0-199 Comments: Serum Triglycerides Reference IntervalNormal <150 mg/dLBorderline high 150 - 199 mg/dLHigh 200 - 499 mg/ dLVery High > or = 500 mg/dL :42 TIBC 275 ug/dL (Normal) Range: 250-450 :42 TSH 2.12 {uIU/mL} (Normal) Range: 0.358-3.74 90-Ewq-739080:10 FERRITIN (61466) Comments: PATIENT NOT FASTINGPERFORMED BY: [facility] Rbwrbs7459 [facility] [id number] Ferritin, Serum 133 ng/mL (Normal) Range: 15-150 02-Jgv-467096:10 IRON BINDING CAPACITY Comments: PATIENT NOT FASTINGPERFORMED BY: [facility] Ixcbdn7803 [facility] [id number] Information: [id number] (TIBC) (49612) Iron Saturation 20 % (Normal) Range: 15-55 Iron, Serum 62 ug/dL (Normal) Range: 35-155 UIBC 241 ug/dL (Normal) Range: 150-375 Iron Bind.Cap.(TIBC) 303 ug/dL (Normal) Range: 250-450 18-Jrp-044076:10 VITAMIN B-12 (CYANOCOBALAMIN) Comments: PATIENT NOT FASTINGPERFORMED BY: [facility]Co[facility] Medical CenterEitigv8558 [facility] [id number] (06070) Vitamin B12 421 pg/mL (Normal) Range: 211-946 :10 TSH (34657) Comments: PATIENT NOT FASTINGPERFORMED BY: [facility] Nxgiwh4200 [facility] [id number] TSH 1.150 {uIU/mL} (Normal) Range: 0.450-4.500 23-Svg-824290:37 HgA1C , Office (78712) HgA1C , Office 6.1 % (Normal) Range: 4.6 - 7.1 3-Xwb-498771:10 CBC with manual diff Comments: PATIENT WAS FASTINGPERFORMED BY: [facility] Crhinc7008 [facility] [id number] Information: [id number] (89794) Immature Grans (Abs) 0.0 {x10E3/uL} (Normal) Range: [...] 3.77-5.28 WBC 8.2 {x10E3/uL} (Normal) Range: 3.4-10.8 9-Goy-016602:10 Metabolic Panel, Comprehensive Comments: PATIENT WAS FASTINGPERFORMED BY: [facility]Co[facility] Medical CenterSxlomk1598 [facility] [id number] (52554) ALT (SGPT) 11 [iU]/L (Normal) Range: 0-32 [...] Glucose, Serum 129 mg/dL (Abnormal) Range: 65-99 0-Sfr-652700:10 Lipid Panel (73349) Comments: PATIENT WAS FASTINGPERFORMED BY: [facility]CoM[facility] Medical CenterNkksne7616 [facility] [id number] LDL/HDL Ratio 1.4 {ratio_units} (Normal) Range: 0.0-3.2 [...] METABOLIC PANEL, Comments: PATIENT NOT FASTINGPERFORMED BY: [employer] Agcyfl6287 [facility] [id number] Information: [id number] COMPREHENSIVE (66387) ALT (SGPT) 15 [iU]/L (Normal) Range: 0-32 [...] 133 mg/dL (Abnormal) Range: 65-99 :14 TSH (71152) Comments: PATIENT NOT FASTINGPERFORMED BY: [facility]CoM[facility] Medical CenterAcpxzu3115 [facility] [id number] TSH 0.182 {uIU/mL} (Abnormal) Range: 0.450-4.500 :40 [...] CHOL 99 mg/dL (Normal) Comments: <200 mg/dL Ksyjfugqs800-675 mg/dL Borderline>240 mg/dL High Risk :40 MIACRE [...] CHOL 148 mg/dL (Normal) Comments: <200 mg/dL Cnsfggmnj568-378 mg/dL Borderline>240 mg/dL High Risk HDL 46 [...] - 250 nmol/L)Toxicity >100 ng/mL (>250 nmol/L) 14-Awv-281983:27 HgA1C , Office (81646) HgA1C , Office 6.7 % (Normal) Range: 4.6 - 7.1 :17 METABOLIC PANEL, COMPREHENSIVE Comments: PATIENT WAS FASTINGPERFORMED BY: [facility] Pumrpt4839 [facility] [id number] (67380) ALT (SGPT) 16 [iU]/L (Normal) Range: 0-32 [...] mg/dL (Abnormal) Range: 65-99 :17 LIPID PANEL (05347) Comments: PATIENT WAS FASTINGPERFORMED BY: [employer] Cadhiu1802 [facility] [id number] LDL/HDL Ratio 2.0 {ratio_units} (Normal) Range: 0.0-3.2 [...] MANUAL DIFF Comments: PATIENT WAS FASTINGPERFORMED BY: [facility]6370 [facility] [id number] Information: [id number] (91758) Immature Grans (Abs) 0.0 {x10E3/uL} (Normal) Range: [...] B-12 (CYANOCOBALAMIN) Comments: PATIENT WAS FASTINGPERFORMED BY: [employer] Phygmx0223 [facility] [place] [id number] (65807) Vitamin B12 696 pg/mL (Normal) Range: 211-946 :17 Vitamin D Hydroxy (06856) Comments: PATIENT WAS FASTINGPERFORMED BY: [facility] Sxmieg2718 [address] RoadDublin [place] [id number] Vitamin D, 25-Hydroxy 29.3 ng/mL (Abnormal) Range: 30.0-100.0 Comments: Vitamin D deficiency has been defined by the Kermit ofMer[facility] Hospitalcine and an Endocrine Society practice guideline as alevel of serum 25-OH vitamin D less than 20 ng/mL (1,2).The Endocrine Society went on to further define vitamin Dinsufficiency as a level between 21 and 29 ng/mL (2).1. IOM (Kermit of Medicine). 2010. Dietary reference intakes for calcium and D. [place]: The National Academies Press.2. Rachel MF, Yael NC, Dunia HERRERA, et al. Evaluation, treatment, and prevention of vitamin D deficiency: an Endocrine Society clinical practice guideline. JCEM. 2010; 96(7):1911-30. :29 HgA1C , Office (27228) HgA1C , Office 7.0 % (Normal) Range: 4.6 - 7.1 :14 B12 794 pg/mL (Normal) Range: 211-911 Comments: Effective 2012:14 VITD 37.5 ng/mL (Normal) Comments: Vitamin D 25(OH) Status RangeDeficiency <20 ng/mL (50nmol/L)Insufficiency 20 - 30 ng/mL (50 - 75 nmol/L)Sufficiency 30 - 100 ng/mL (75 - 250 nm ol/L)Toxicity >100 ng/mL (250 nmol/L)Effective 201201-Dec-20125-Yhj-813979:13 CHEST PA AND LATERAL Radiology Report See [...] Tate D.O.December 01, 2012 at 12:40:54 PM [id number] Signed DS/DS If you are the referring physician and would like to consult with theradiologist who provided this i nterpretation, please contact Eulalio Tate D.O. at [phone]. If this radiologist is unavailable, you will bedirected to another radiologist to assist. If you are a patient with a question regarding t his report, pleasecontactyour referring physician directly. Professional Interpretation Provided By: [employer], Phone , These documents contain legally protected [...] for the return or destructionofthese documents. Dicta góemz on 12/01/12 1040 by Carlos Alberto Peterson DOribed on 12/01/12 1243 by ITS IMPORTSign by Mack Peterson DO on 12/01/12 1244 Sign by: Mack Peterson DO 24-Eya-082262:20 Upper Respiratory Culture Comments: PATIENT NOT FASTINGPERFORMED BY: LabCoMeadowlands Hospital Medical CenterVuznfq1064 [place] [id number] Information: SRC: THROAT Result 1 RRF (Normal) Comments: Routine respiratory alton Upper Respiratory Culture Final report (Normal) 16-Esn-173950:06 Rapid Strep Test, Office (50979) Rapid Strep Test, Office Negative (Normal) 51-Eqf-796953:32 BILAT SCRN DIGITAL & CAD Radiology Report [...] Wayne M.D.November 18, 2012 at 12:51:57 PM [id number] Signed GP/GP If you are the referring physician and would like to consult with theradiologist who provid ed this interpretation, please contact Lee Cluadio at [phone]. If this radiologist is unavailable, youwill be directed to another radiologist to assist. If you are a patient with a ques tion regarding this report, pleasecontactyour referring physician directly. Professional Interpretation Provided By: [employer], Phone , These documents contain legally pr [...] 11/18/12 1254 Sign by: Teo Wayne MD 0-Vkz-591868:24 URINE RANI CULTURE-IDENTIFICATN Comments: PATIENT NOT FASTINGPERFORMED BY: OcapiUNM Children's Psychiatric CenterRjxsmm9088 [facility] [id number] Information: [id number] (69143) Result 1 MUG (Normal) Comments: Mixed urogenital flora10,000-25,000 colony forming units per mL Urine Final report (Normal) Culture,Comprehensive 92-Trj-967000:50 METABOLIC PANEL, Comments: PATIENT NOT FASTINGPERFORMED BY: [employer] Vwcukc7846 [facility] [id number] Information: ADD [id number] AND DRAW FEE 99 6219 COMPREHENSIVE (48995) ALT (SGPT) 14 [iU]/L (Normal) Range: 0-32 [...] Glucose, Serum 109 mg/dL (Abnormal) Range: 65-99 6-Fsa-087295:42 HgA1C , Office (77310) HgA1C , Office 6.3 % (Normal) Range: 4.6 - 7.1 :04 Microscopic Examination Comments: PATIENT NOT FASTINGPERFORMED BY: [employer] [id number] Bacteria Few (Normal) Mucus Threads Present (Normal) Cast Type Hyaline casts (Normal) Casts Present {/lpf} (Abnormal) Epithelial Cells (non renal) 0-10 {/hpf} (Normal) Range: 0 - 10 RBC 0-3 {/hpf} (Normal) Range: 0 - 3 WBC 6-10 {/hpf} (Abnormal) Range: 0 - 5 :04 VITAMIN B-12 (CYANOCOBALAMIN) Comments: PATIENT NOT FASTINGPERFORMED BY: [employer] [place] [id number] (36109) Vitamin B12 1228 pg/mL (Abnormal) Range: 211-946 :04 Vitamin D Hydroxy (55405) Comments: PATIENT NOT FASTINGPERFORMED BY: [place] [id number] Vitamin D, 25-Hydroxy 21.9 ng/mL (Abnormal) Range: 30.0-100.0 Comments: Vitamin D deficiency has been defined by the Kermit ofMedicine and an Endocrine Society practice guideline as alevel of serum 25-OH vitamin D less than 20 ng/mL (1,2).The Endocrine Society went on to further define vitamin Dinsufficiency as a level between 21 and 29 ng/mL (2).1. IOM (Kermit of Medicine). 2010. Dietary reference intakes for calcium and D. [place]: The National Academies Press.2. Rachel MF, Yael MARLEY, Dunia HERRERA, et al. Evaluation, treatment, and prevention of vitamin D deficiency: an Endocrine Society clinical practice guideline. JCEM. 2010; 96(7):1911-30. :04 URINALYSIS, W/ MICRO (39639) Comments: PATIENT NOT FASTINGPERFORMED BY: [employer]70 [facility] [id number] Microscopic Examination See below: (Normal) Nitrite, Urine Negative (Normal) Bilirubin Negative (Normal) Urobilinogen,Semi-Qn 0.2 mg/dL (Normal) Range: 0.0-1.9 Occult Blood Negative (Normal) Ketones Negative (Normal) Glucose Negative (Normal) Protein Negative (Normal) WBC Esterase 1+ (Abnormal) Appearance Clear (Normal) Urine-Color Yellow (Normal) pH 5.5 (Normal) Range: 5.0-7.5 Specific [place] 1.024 (Normal) Range: 1.005-1.030 :04 CBC WITH MANUAL DIFF Comments: PATIENT NOT FASTINGPERFORMED BY: [employer] Kpfpyp4266 [facility] [id number] Information: [id number] (11597) Immature Grans (Abs) 0.0 {x10E3/uL} (Normal) Range: [...] 3.77-5.28 WBC 7.2 {x10E3/uL} (Normal) Range: 4.0-10.5 90-Gsu-85303:04 METABOLIC PANEL, COMPREHENSIVE Comments: PATIENT NOT FASTINGPERFORMED BY: LabCoMeadowlands Hospital Medical CenterSdwfwh6886 [facility] [id number] (07572) ALT (SGPT) 13 [iU]/L (Normal) Range: 0-32 [...] mg/dL (Abnormal) Range: 65-99 :04 LIPID PANEL (54381) Comments: PATIENT NOT FASTINGPERFORMED BY: [employer] [address] [id number] LDL Cholesterol Calc 103 mg/dL (Abnormal) Range: [...] pg/mL (Normal) Range: 211-946 Comments: Performed at: [employer] [facility] [employer] [address] [id number] Director: Arnold Jefferson PhD, Phone: [phone] :[phone] CMP GAP 9 (Normal) Range: 5-15 [...] 250 nmol/L) Toxicity >100 ng/mL (250 nmol/L)Effective 201215-Aug-201279-Otw-549905:20 Metabolic Panel, Basic Comments: PATIENT NOT FASTINGPERFORMED BY: In[facility] EnterprisesTr[facility] Health [facility] Hospital6370 [facility] [id number] Information: [id number] (17301) Calcium, Serum 10.2 mg/dL (Normal) Range: 8.6-10.2 [...] Glucose, Serum 99 mg/dL (Normal) Range: 65-99 3-Foq-874499:24 Microscopic Examination Comments: PATIENT NOT FASTINGPERFORMED BY: [facility] EnterprisesTr[facility]6370 [facility] [id number] Bacteria Few (Normal) Mucus Threads Present (Normal) Epithelial Cells (non renal) 0-10 {/hpf} (Normal) Range: 0 - 10 RBC 0-3 {/hpf} (Normal) Range: 0 - 3 WBC 6-10 {/hpf} (Abnormal) Range: 0 - 5 1-Vfu-983992:24 Vitamin D Hydroxy (15212) Comments: PATIENT NOT FASTINGPERFORMED BY: [facility] EnterprisesTr[facility]6370 [facility] [id number] Vitamin D, 25-Hydroxy 21.7 ng/mL (Abnormal) Range: 30.0-100.0 Comments: Vitamin D deficiency has been defined by the Kermit ofMedicine and an Endocrine Society practice guideline as alevel of serum 25-OH vitamin D less than 20 ng/mL (1,2).The Endocrine Society went on to further define vitamin Dinsufficiency as a level between 21 and 29 ng/mL (2).1. IOM (Kermit of Medicine). 2010. Dietary reference intakes for calcium and D. [place]: The National Academies Press.2. Rachel MF, Yael MARLEY, Dunia HERRERA, et al. Evaluation, treatment, and prevention of vitamin D deficiency: an Endocrine Society clinical practice guideline. JCEM. 2010; 96(7):1911-30. 5-Axa-575979:24 VITAMIN B-12 (CYANOCOBALAMIN) Comments: PATIENT NOT FASTINGPERFORMED BY: [employer]70 [facility] [id number] (30933) Vitamin B12 431 pg/mL (Normal) Range: 211-946 :24 URINALYSIS, W/ MICRO (59260) Comments: PATIENT NOT FASTINGPERFORMED BY: [employer]70 [facility] [id number] Microscopic Examination MICRON (Normal) Comments: Microscopic follows if indicated. Microscopic Examination See below: (Normal) Nitrite, Urine Negative (Normal) Urobilinogen,Semi-Qn 0.2 mg/dL (Normal) Range: 0.0-1.9 Bilirubin Negative (Normal) Ketones Negative (Normal) Occult Blood Negative (Normal) Glucose Negative (Normal) Protein Negative (Normal) WBC Esterase Negative (Normal) Appearance Clear (Normal) pH 6.5 (Normal) Range: 5.0-7.5 Urine-Color Yellow (Normal) Specific [place] 1.022 (Normal) Range: 1.005-1.030 :24 CBC WITH MANUAL DIFF Comments: PATIENT NOT FASTINGPERFORMED BY: [employer]6370 [facility] [id number] Information: [id number] (16564) Immature Grans (Abs) 0.0 {x10E3/uL} (Normal) Range: [...] 3.77-5.28 WBC 7.9 {x10E3/uL} (Normal) Range: 4.0-10.5 8-Cfo-048800:24 METABOLIC PANEL, COMPREHENSIVE Comments: PATIENT NOT FASTINGPERFORMED BY: LabCoMeadowlands Hospital Medical CenterUrxzda3478 [facility] [id number] (59216) ALT (SGPT) 16 [iU]/L (Normal) Range: 0-32 [...] Glucose, Serum 107 mg/dL (Abnormal) Range: 65-99 3-Gvh-753476:24 TSH (76028) Comments: PATIENT NOT FASTINGPERFORMED BY: OcapiUNM Children's Psychiatric CenterSsbzgw8576 [facility] [id number] TSH 2.000 {uIU/mL} Range: 0.450-4.500 (Normal) CCP Antibodies IgG/IgA 1 {units} (Normal) Comments: PATIENT NOT FASTINGPERFORMED BY: [place] 4591170 [facility] [id number] BY: [employer] [id number] :39 Range: 0-19 Comments: Negative <20 Weak positive 20 - 39 Moderate positive 40 - 59 Strong positive >59 8-Mnd-400908:39 Systemic Lupus Profile Comments: PATIENT NOT FASTINGPERFORMED BY: [place] 4591170 [facility] [id number] BY: [employer] [id number] Information: [id number] (86679) Anti-DNA (DS) Ab Qn <1 {IU/mL} (Normal) Range: 0-9 Comments: Negative <5 Equivocal 5 - 9 Positive >9 Sjogren's Anti-SS-B 0.5 {AI} (Normal) Range: 0.0-0.9 Sjogren's Anti-SS-A 0.3 {AI} (Normal) Range: 0.0-0.9 Antichromatin Antibodies <0.2 {AI} (Normal) Range: 0.0-0.9 RA Latex Turbid. 8.5 {IU/mL} (Normal) Range: 0.0-13.9 [place] Antibodies <0.2 {AI} (Normal) Range: 0.0-0.9 MATERIALS SPECIALIST Antibodies <0.2 {AI} (Normal) Range: 0.0-0.9 :27 HgA1C , Office (94569) HgA1C , Office 6.2 % (Normal) Range: 4.6 - 7.1 :27 Blood Glucose , Office (33943) Blood Glucose , Office 108 (Normal) :45 [...] D deficiency has been defined by the Kermit ofMedicine and an Endocrine Society practice guideline as alevel of serum 25-OH vitamin D less than 20 ng/mL (1,2).The Endocrine Society went on to further define vitamin Dinsufficiency as a level between 21 and 29 ng/mL (2).1. IOM (Kermit of Medicine). 2010. Dietary reference intakes for calcium and D. [place]: The National Academies Press.2. Rachel MF, Yael NC, Dunia HERRERA, et al. Evaluation, treatment, and prevention of vitamin D deficiency: an Endocrine Society clinical practice guideline. JCEM. 2010; 96(7): 1911-30.Performed at: [address] [id number] Director: Arnold Jefferson PhD, Phone: [phone] 64-Kqr-407737:59 Blood Glucose , Office (17963) Blood Glucose , Office 131 (Normal) :58 HgA1C , Office (47566) HgA1C , Office 6.8 % (Normal) Range: [...] mg/dL suggests DIABETES MELLITUS per A.D.A. criteria. 21-Sza-625098:12 LIPID LDL 104 mg/dL (Normal) Range: 0-130 [...] D deficiency has been defined by the Kermit ofMedicine and an Endocrine Society practice guideline as alevel of serum 25-OH vitamin D less than 20 ng/mL (1,2).The Endocrine Society went on to further define vitamin Dinsufficiency as a level between 21 and 29 ng/mL (2).1. IOM (Kermit of Medicine). 2010. Dietary reference intakes for calcium and D. [place]: The National Academies Press.2. Rachel MF, Yael MARLEY, Dunia HERRERA, et al. Evaluation, treatment, and prevention of vitamin D deficiency: an Endocrine Society clinical practice guideline. JCEM. 2010; 96(7): 1911-30.Performed at: [address] [id number] Director: Tona Emmanuel MD, Phone: [phone] 76-Emb-325126:15 HgA1C , Office (81381) HgA1C , Office 5.8 % (Normal) Range: 4.6 - 7.1 55-Kpe-978871:15 Blood Glucose , Office (98479) Blood Glucose , Office 113 (Normal) :30 [...] D deficiency has been defined by the Kermit ofMedicine and an Endocrine Society practice guideline as alevel of serum 25-OH vitamin D less than 20 ng/mL (1,2).The Endocrine Society went on to further define vitamin Dinsufficiency as a level between 21 and 29 ng/mL (2).1. IOM (Kermit of Medicine). 2010. Dietary reference intakes for calcium and D. [place]: The National Academies Press.2. Rachel MF, Yael NC, Dunia HERRERA, et al. Evaluation, treatment, and prevention of vitamin D deficiency: an Endocrine Society clinical practice guideline. JCEM. 2010; 96(7): 1911-30.Performed at: [address] [id number] Director: Tona Emmanuel MD, Phone: [phone] 41-Bzs-758021:02 CTA NECK W/WO CONTRAST Radiology Report See [...] ologist regarding this report, please call our 88H0avvtugy line @ Dictated on 10/08/11 1409 by Hema STREEETR,Loraribed on 10/09/11 0856 by ITS IMPORTSign by Juana Wayne MD on 10/09/11 0857 Sign by: Teo Wayne MD 36-Zdc-153629:00 BILAT SCRN DIGITAL & CAD Radiology Report [...] radiologist regarding this report, please call our 35L5pbygaqf line @ Dictated on 09/18/11 1040 by Ori clifton MD,Deweybed on 09/20/11 0901 by ITS IMPORTSign by Teo Wayne MD on 09/20/11 0902 Sign by: Hema STREETER,Teo 48-Ava-61879:59 DEXA BONE DENSITY STUDY (HP) Radiology Report [...] regarding this re port, please call our 65H9jlabywc line @ Dictated on 09/18/11 [address]ER,Davidranscribed on 09/19/11 1416 by ITS IMPORTSign by Teo Wayne MD on 09/19/11 141 Sign by: Teo Wayne MD 13-Jgp-433304:17 HgA1C , Office (99051) HgA1C , Office 5.9 % (Normal) Range: 4.6 - 7.1 58-Ptw-903019:17 Blood Glucose , Office (40929) Blood Glucose , Office 77 (Normal) :44 [...] >240 mg/dL High Risk :44 VIT D,25 72044 22.3 ng/mL (Abnormal) Range: 30.0-100.0 Comments: Vitamin D deficiency has been defined by the Kermit ofMedicine and an Endocrine Society practice guideline as alevel of serum 25-OH vitamin D less than 20 ng/mL (1,2).The Endocrine Society went on to further define vitamin Dinsufficiency as a level between 21 and 29 ng/mL (2).1. IOM (Kermit of Medicine). 2011. Dietary reference intakes for calcium and D. [place]: The National Academies Press.2. Rachel MF, Yael MARLEY, Dunia HERRERA, et al. Evaluation, treatment, and prevention of vitamin D deficiency: an Endocrine Society clinical practice guideline. JCEM. 2010; 96(7): 1911-30.Performed at: - [facility] [address] [id number] Director: Tona Emmanuel MD, Phone: [phone] :[phone] HgA1C , Office (19789) HgA1C , Office 6.6 % (Normal) Range: 4.6 - 7.1 :34 Blood Glucose , Office (37475) Blood Glucose , Office 116 (Normal) :50 [...] Range: 4.4-11.0 :50 COMP METABOLIC Comments: appt 60706 GAP 10 (Normal) Range: 5-15 CO2 26.0 [...] {uIU/mL} (Normal) Range: 0.358-3.74 :50 VIT D,25 16140 41.3 ng/mL (Normal) Range: 32.0-100.0 Comments: Effective June 18, 2011 Vitamin D, 25-Hydroxy reference intervals will be changing to 30-100. .Recent studies consider the lower li lalo of 32.0 ng/mL to be athreshold for optimal health.Pepito ANNE. J Nutr. 2004;135(2):317-22.Performed at: [facility] [employer] [id number] Director: Tona Emmanuel MD, Phone: [phone] :[phone] VITAMIN B12 806 pg/mL (Normal) Range: 254-1320 Comments: There is a low frequency possibility that high titers ofintrinsic blocking antibodies may not be completely inactivated during the reaction pretreatment stepof this testing method. If test results are i n conflictwith the clinical diagnosis, patient should be testedfor the presence of intrinsic factor blocking antibodies. 6-Tng-225904:09 Comp. Metabolic Panel (14) Comments: PATIENT WAS FASTINGPERFORMED BY: Inventure EnterprisesCo[address] [id number] ALT (SGPT) 40 [iU]/L (Normal) Range: 0-40 [...] With LDL/HDL Comments: PATIENT WAS FASTINGPERFORMED BY: [facility] [id number] Ratio LDL Cholesterol Calc 74 mg/dL (Normal) [...] 0.192 {uIU/mL} Comments: PATIENT WAS FASTINGPERFORMED BY: [facility] [id number] (Abnormal) Range: 0.450-4.500 : Vitamin B12 417 pg/mL (Normal) Comments: PATIENT WAS FASTINGPERFORMED BY: [facility] [id number] Range: 211-946 58-Hcs-746920:22 UNILAT LT DIAG DIGITAL & CAD Radiology [...] 02/23/11 151 Sign by: Teo Wayne MD 35-Wlg-10614:58 CBCD,SMEAR DIFF Comments: appt 10/24/10 RED CELL [...] {uIU/mL} (Abnormal) Range: 0.358-3.74 :58 VIT D,25 94415 22.0 ng/mL (Abnormal) Comments: appt 10/24/10 Range: 32.0-100.0 Comments: Recent studies consider the lower limit of 32.0 ng/mL to tammy threshold for optimal health.Pepito ANNE. J Nutr. 2004;135(2):317-22.Performed at: [facility] [place] [address]Lab Director: Tona Emmanuel MD, Phone: [phone] :[phone] VITAMIN B12 285 pg/mL (Normal) Range: [...] Thin Prep VialPATIENT NOT FASTINGPERFORMED BY: [facility] [address] [id number] Information: [id number] ([id number]) Note: PAPSMR (Normal) Comments: The Pap smear [...] for malignant neoplasm of the cervixConner Montes, Medical Record Assistant (ASCP) 59-Gdg-465199:26 BREAST UNILATERAL Radiology Report See Note (Normal) [...] on 08/28/10 1453 Sign by: ANTHONY PALOMARES 90-Buc-936777:58 UNILAT LT DIAG DIGITAL & CAD Radiology [...] Category 3: Probably Benign Finding - Initial Mvmvs-ZxeaopxiPkojes-tz Suggested. A letter regarding these results will be sent tothepatient by the facility within 30 days. Approximately 10% of breast cancers are not detected by mammography. Anormal mammogram should not delay biopsy of a clinically suspiciousabnormality. Dictated on 08/24/10 1206 by ANTHONY PALOMARESTranscribed on 08/24/10 135 by ITS IMPORTSign by ANTHONY PALOMARES on 08/24/10 135 Sign by: ANTHONY PALOMARES 54-Ffo-21067:43 BILAT SCRN DIGITAL & CAD Radiology Report [...] on 08/18/101451 Sign by: ANTHONY PALOMARES MD 1-Usy-478012:14 HgA1C , Office (04249) HgA1C , Office 6.5 % (Normal) Range: 4.6 - 7.1 2-Yss-764174:14 Blood Glucose , Office (96455) Blood Glucose , Office 176 (Normal) :30 [...] CREAT 161.2 mg/dL (Normal) : VIT D,25 85647 27.7 ng/mL Range: 32.0-100.0 30 (Abnormal) Comments: Recent studies consider the lower limit of 32.0 ng/mL to tammy threshold for optimal health.Pepito ANNE. J Nutr. 2004;135(2):317- 22.Performed at: - [facility] 8[address]Lab Director: Tona Emmanuel MD, Phone: [phone] : VITAMIN B12 449 pg/mL (Normal) Range: [...] {units} (Normal) Comments: PATIENT NOT FASTINGPERFORMED BY: [employer] Wvtwkr4787 [facility] [id number] BY: [address] [id number] 0:44 Range: 0-19 Comments: Negative <20 Weak positive 20 - 39 Moderate positive 40 - 59 Strong positive >59 Comment: SPRCS (Normal) Comments: PATIENT NOT FASTINGPERFORMED BY: [employer] [facility] [id number] BY: [address] [id number] 0:44 Comments: Effective April 25, 2009 order code 480536 CCP IgGAntibodies has been replaced due to an updated reagentversion 3.1. For this reason [facility] has provided youwith a new order code 181347 CCP Antibodies IgG/IgA. 19-Mny-981997:44 Vitamin D Hydroxy Comments: PATIENT NOT FASTINGPERFORMED BY: [employer] Eyihcr1080 [facility] [id number] BY: [address] [id number] (22733) Vitamin D, 25-Hydroxy 30.9 ng/mL (Abnormal) Range: 32.0-100.0 Comments: Recent studies consider the lower limit of 32.0 ng/mL to be athreshold for optimal health.Pepito ANNE. J Nutr. 2004;135(2):317-22. 07-Mqm-046141:44 SED RATE ERYTHROCYTE Comments: PATIENT NOT FASTINGPERFORMED BY: [facility] EnterprisesCheryl [place] 5493370 [facility] [id number] BY: [address] [id number] ([id number]) Sedimentation Rate-Westergren 4 mm/h (Normal) Range: 0-30 81-Wlg-210387:44 C-REACTIVE PROTEIN Comments: PATIENT NOT FASTINGPERFORMED BY: [place] 2612670 [facility] [id number] BY: [address] [id number] (09077) C-Reactive Protein, Quant 2.5 mg/L (Normal) Range: 0.0-4.9 54-Wlc-590874:44 TSH (75485) Comments: PATIENT NOT FASTINGPERFORMED BY: [address] [id number] BY: [address] [id number] TSH 2.050 {uIU/mL} (Normal) Range: 0.450-4.500 34-Ntq-223133:44 RHEUMATOID FACTOR-QUANT Comments: PATIENT NOT FASTINGPERFORMED BY: [place] 2612670 [facility] [id number] BY: [address] [id number] (74002) RA Latex Turbid. 8.4 {IU/mL} (Normal) Range: 0.0-13.9 13-Jwk-075880:44 MELI (ANTINUCLEAR ANTIBODY) Comments: PATIENT NOT FASTINGPERFORMED BY: [facility]6370 [facility] [id number] BY: [address] [id number] (69091) MELI Direct Negative (Normal) 00-Rux-106808:44 CBC WITH MANUAL DIFF Comments: PATIENT NOT FASTINGPERFORMED BY: [place] [id number] [facility] [id number] BY: [address] [id number] Inf ormation: ADD [id number] AND DRAW FEE [id number] 1656 (79157) Immature Grans (Abs) 0.0 {x10E3/uL} (Normal) Range: [...] 3.80-5.10 WBC 6.8 {x10E3/uL} (Normal) Range: 4.0-10.5 38-Jah-376182:44 METABOLIC PANEL, Comments: PATIENT NOT FASTINGPERFORMED BY: CB [facility] Okrazt7107 [facility] [id number] BY: BN [facility] [address] [id number] [facility] (72439) ALT (SGPT) 21 [iU]/L (Normal) Range: 0-40 [...] (Abnormal) Range: 65-99 :33 HgA1C , Office (79085) HgA1C , Office 6.8 % (Normal) Range: 4.6 - 7.1 :33 Blood Glucose , Office (85880) Blood Glucose , Office 135 (Normal) :22 [...] CHOL 157 mg/dL (Normal) Comments: <200 mg/dL Cihqbxszh502-513 mg/dL Borderline>240 mg/dL High Risk :22 LIVER ALB 3.5 g/dL (Normal) Range: 3.4-5.0 ALK P 97 U/L (Normal) Range: 50-136 ALT 21 U/L (Normal) Range: 12-78 AST 16 U/L (Normal) Range: 15-37 D BILI 0.12 mg/dL (Normal) Range: 0.00-0.30 T BILI 0.40 mg/dL (Normal) Range: 0.00-1.00 T PROT 6.5 g/dL (Normal) Range: 6.4-8.2 :22 TSH 1.54 {uIU/mL} Range: 0.358-3.74 (Normal) :22 VIT D,25 28809 36.8 ng/mL (Normal) Range: 32.0-100.0 Comments: Recent studies consider the lower limit of 32.0 ng/mL to tammy threshold for optimal health.Pepito ANNE. J Nutr. 2004;135(2):317-22.Performed at: [facility] [employer] 9[address] 296Lab Director: Tona Emmanuel MD, Phone: [phone] :[phone] VITAMIN B12 264 pg/mL (Normal) Range: 254-1320 Comments: There is a low frequency possibility that high titers ofintrinsic blocking antibodies may not be completelyinactivated during the reaction pretreatment stepof this testing method. If test results are in conflictwith the clinical diagnosis, patient should be testedfor the presence of intrinsic factor blocking antibodies. : Amylase, Serum 92 U/L (Normal) Comments: PERFORMED BY: [employer] [id number] Range: 31-124 47-Hmg-205327:34 CBC With Differential/Platelet Comments: PERFORMED BY: [facility] CenterWvvcab9432 [facility] [id number] Baso (Absolute) 0.0 {x10E3/uL} (Normal) Range: 0.0-0.2 [...] 3.80-5.10 WBC 7.5 {x10E3/uL} (Normal) Range: 4.0-10.5 31-Svi-079483:34 Comp. Metabolic Panel (14) Comments: PERFORMED BY: [facility] CenterBmgvln9411 [facility] [id number] ALT (SGPT) 18 [iU]/L (Normal) Range: 0-40 [...] Serum 57 U/L (Normal) Comments: PERFORMED BY: [facility] Nhoikm2942 [facility] [id number] 13:34 Range: 0-59 03-Feb-20109:00 GALLBLADDER Radiology Report See Note (Normal) Comments: Exam Number: [id number] CLINICAL:Epigastric pain and bloating. ABDOMINAL ULTRASOUND TECHNIQUE:Transabdominal [...] Mild hydronephrosis, etiology uncertain. The left kid angelica was not imaged. Normal visualized abdominal aorta. Normal visualized inferior venacava. There is no ascites. IMPRESSION:Borderline hepatomegaly with fatty metamorphosis.Renal cysts as described abo ve along with mild hydronephrosis,etiology indeterminate. Reported By: KATHRYN MUNOZ M.D. 1-Rfv-582795:19 CBC WITH MANUAL DIFF Comments: PATIENT NOT FASTINGPERFORMED BY: COR[facility] Veaoxr3081 [facility] [id number] Information: [id number] (14123) Baso (Absolute) 0.1 {x10E3/uL} (Normal) Range: 0.0-0.2 [...] 3.80-5.10 WBC 9.9 {x10E3/uL} (Normal) Range: 4.0-10.5 7-Iuu-491413:19 METABOLIC PANEL, COMPREHENSIVE Comments: PATIENT NOT FASTINGPERFORMED BY: [facility] CenterCxredy4817 [facility] [id number] (22050) ALT (SGPT) 19 [iU]/L (Normal) Range: 0-40 [...] Report See Note (Normal) Comments: Exam Number: [id number] CLINICAL:This is a 69-year-old female patient with [...] as discussed above. Reported By: TEO WAYNE 7-Hoe-203609:12 HgA1C , Office (55799) HgA1C , Office 7.1 % (Normal) Range: 4.6 - 7.1 6-Tlt-914594:12 Blood Glucose , Office (30351) Blood Glucose , Office 129 (Normal) 29-Dec-20099:45 [...] CHOL 155 mg/dL (Normal) Comments: <200 mg/dL Cegqtqqxy567-031 mg/dL Borderline>240 mg/dL High Risk :45 VIT D,25 11979 42.5 ng/mL (Normal) Range: 32.0-100.0 Comments: Recent studies consider the lower limit of 32.0 ng/mL to tammy threshold for optimal health.Pepito ANNE. J Nutr. 2004;135(2):317-22.Performed at: - [facility] [id number] Director: Tona Emmanuel MD :53 LIPID HDL [...] CHOL 128 mg/dL (Normal) Comments: <200 mg/dL Bxarxeghw016-893 mg/dL Borderline>240 mg/dL High Risk :53 MICROALB:CRE UR MALB:CREAT 19.1 {mg/g_CRE} (Normal) MICROALBUMIN,UR 29.1 mg/L (Normal) UR CREAT 152.0 mg/dL (Normal) :53 TSH 0.93 {uIU/mL} (Normal) Range: 0.358-3.74 :53 VIT D,25 72607 22.7 ng/mL (Abnormal) Range: 32.0-100.0 Comments: Recent studies consider the lower limit of 32.0 ng/mL to tammy threshold for optimal health.Pepito ANNE. J Nutr. 2004;135(2):317-22.Performed At: [facility] [place], [place] [id number] :53 VITAMIN B12 337 pg/mL (Normal) Range: 254-1320 :09 HgA1C , Office (13957) HgA1C , Office 7.1 % (Normal) Range: 4.6 - 7.1 :09 Blood Glucose , Office (92241) Blood Glucose , Office 108 (Normal) 7-Ttj-578391:33 KNEE,4 OR MORE VIEWS (MT) Radiology Report See Note (Normal) Comments: Exam Number: [id number] CLINICAL:Pain X-RAY EXAMINATION RIGHT KNEE TECHNIQUE:Three view(s) [...] Report See Note (Normal) Comments: Exam Number: [id number] CLINICAL:Pain X-RAY EXAMINATION: RIGHT TIBIA AND FIBULA [...] (MT) Radiology See Note Comments: Exam Number: [id number] CLINICAL:Pain X-RAY EXAMINATION: RIGHT FEMUR TECHNIQUE:Two views [...] Visualized femur. Reported By: RAYMOND ARRIAGA M.D. 8-Tvv-589971:43 UNILAT LT DIAG DIGITAL & CAD Radiology Report See Note (Normal) Comments: Exam Number: [id number] MAMMOGRAM, UNILATERAL LEFT DIAGNOSTIC DIGITAL AND CAD HISTORYAbnormal mammogram, left breast. TECHNIQUEFull field digital images were obtained in left true lateral, rolledcranio caudal, and spot mediolateral oblique and craniocaudalprojections. CAD images were reviewed. The current study is compared to the examinations of March 12, 2006,and June 21, 2009. FINDINGSThere is a xggedtik-qa-zmpclq extent of fibroglandular parenchymapresent. There is no [...] wereal so examined with computer-aided detection software (Sevenpop, VisualShare.). Reported By: ANTHONY PALOMARES M.D. 20-Rgn-141961:04 BILAT SCRN DIGITAL & CAD Radiology Report See Note (Normal) Comments: Exam Number: [id number] MAMMOGRAM, BILATERAL SCREENING DIGITAL AND CAD HISTORYRoutine [...] werealso examined with computer- aided detection software (miradio.fm [facility].). Reported By: ANTHONY PALOMARES M.D. 81-Ttc-403471:03 DEXA BONE DENSITY STUDY () Radiology Report See Note (Normal) Comments: Exam Number: [id number] BONE DENSITOMETRY HISTORYOsteopenia. TECHNIQUE Bone densitometry of the lumbar spine and both hips is now beingperformed. The best criteria for evaluation of osteoporosis is theT-value, which represents the comparison of the patient's bone mass flako expected peak bone mass. For most patients, the mean T-value of U4ijgznbm L4 is used to evaluate the lumbar spine. To evalua te the hip,the lower T-value of the femoral neck or total hip is used. FINDINGSIn this patient, the mean T-value of L1 through L4 is 0.3 which isnormal. Bone mineral density is measured at 18.3% greate r than ja1344.Digital lateral view for evaluation of vertebral deformity [...] within normallimits. Reported By: ANTHONY PALOMARES M.D. 21-Qim-805518:09 BRAIN/HEAD W/WO CONTRAST Radiology Report See Note (Normal) Comments: Exam Number: [id number] CLINICAL:69 year old female with altered mental [...] CREAT 123.4 mg/dL (Normal) 07-Jun-2009 VIT D,25 73445 19.7 ng/mL Range: 32.0-100.0 9:02 (Abnormal) Comments: Recent studies consider the lower limit of 32.0 ng/mL to tammy threshold for optimal health.Pepito ANNE. J Nutr. 2004;135(2):317- 22.Performed At: [facility] [place], [place] [id number] 07-Jun-2009 VITAMIN B12 328 pg/mL (Normal) Range: 254-1320 9:02 11-Feb-2009 Homocyst(e)ine, Plasma 9.8 umol/L (Normal) Comments: PERFORMED BY: [employer] [id number] 14:28 Range: 0.0-15.0 11-Feb-2009 Methylmalonic Acid, 336 nmol/L (Normal) Comments: PERFORMED BY: [employer] [id number] 14:28 Serum Range: 73-376 Comments: The reference range for methylmalonic acid has been set at +3sd abovethe mean for healthy blood bank donors. In the clinical assessment ofpatients with megaloblastic anemias a cutoff of +3sd provides gr eaterspecificity in the diagnosis of the vitamin deficiency states,despite the sacrifice of some sensitivity. 11-Feb-2009 TSH 2.700 {uIU/mL} Comments: PERFORMED BY: [employer] [address] [id number] 14:28 (Normal) Range: 0.450-4.500 11-Feb-2009 Vitamin B12 231 pg/mL (Normal) Comments: PERFORMED BY: [facility] [address] [id number] 14:28 Range: 211-911 5-Xbt-518855:09 HAND,MIN 3 VIEWS (MT) Radiology Report See Note (Normal) Comments: Exam Number: [id number] RIGHT WRIST CLINICAL DATAFell and injured the [...] osteoarthritis right hand. Reported By: FERNANDO TUCKER 0-Iqk-233888:09 WRIST,MIN 3 VIEWS (MT) Radiology Report See Note (Normal) Comments: Exam Number: [id number] RIGHT WRIST CLINICAL DATAFell and injured the [...] PANEL, COMPREHENSIVE Comments: PATIENT WAS FASTINGPERFORMED BY: [facility] CenterSffbtc6627 [facility] [id number] 76414) A/G Ratio 1.9 (Normal) Range: 1.1-2.5 Albumin, [...] 141 mmol/L (Normal) Range: 135-145 :42 TSH (67615) Comments: PATIENT WAS FASTINGPERFORMED BY: [employer] Ldsfed6222 [facility] [id number] TSH 4.980 {uIU/mL} (Abnormal) Range: 0.450-4.500 :42 MICROALBUMIN: CREATININE RATIO Comments: PATIENT WAS FASTINGPERFORMED BY: [facility]iM[facility] Medical CenterTmrajm4334 [facility] [id number] (78116) AND (88668) Creatinine, Urine 130.9 mg/dL (Normal) Range: 15.0-278.0 Microalb/Creat Ratio 66.4 {ug/mg_creat} (Abnormal) Range: 0.0-30.0 Microalbumin, Urine 86.9 ug/mL (Abnormal) Range: 0.0-17.0 :42 LIPID PANEL (63748) Comments: PATIENT WAS FASTINGPERFORMED BY: [employer] Ocuhvt9390 [facility] [id number] Cholesterol, Total 148 mg/dL (Normal) Range: 100-199 HDL Cholesterol 42 mg/dL (Normal) Comments: According to ATP-III Guidelines, HDL-C >59 mg/dL is considered anegative risk factor for CHD. LDL Cholesterol Calc 78 mg/dL (Normal) Range: 0-99 LDL/HDL Ratio 1.9 {ratio_units} (Normal) Range: 0.0-3.2 Triglycerides 141 mg/dL (Normal) Range: 0-149 VLDL Cholesterol Priscilla 28 mg/dL (Normal) Range: 5-40 :42 CBC WITH MANUAL DIFF (66270) Comments: PATIENT WAS FASTINGClinical Information: ADD DRAW FEE [id number] ADD J 19702 PERFORMED BY: [employer] Hahmnh9478 [facility] [id number] Baso (Absolute) 0.1 {x10E3/uL} (Normal) Range: 0.0-0.2 [...] B-12 (CYANOCOBALAMIN) Comments: PATIENT WAS FASTINGPERFORMED BY: [facility]Co[facility] CenterSbvvru9663 [facility] [id number] (79168) Vitamin B12 232 pg/mL (Normal) Range: 211-911 8-Wix-714819:06 Blood Glucose , Office (37258) Blood Glucose , Office 155 (Normal) :27 [...] (Normal) Range: 0.34-4.82 :27 HgA1C , Office (22636) Comments: done>Wf. HgA1C , Office 6.2 % (Normal) Range: 4.6 - 7.1 :27 Blood Glucose , Office (72907) Comments: done>Wf. Blood Glucose , Office 152 [...] for patient's is the eGFRmultiplied by 1.212. [facility] Laboratory uses the abbreviated Modification of Diet [...] Disease W/O Kidney Disease>/= 90 Stage One Ywdoox90 - 89 Stage Two Suspect Decrease d [...] T PROT 7.3 g/dL (Normal) Range: 6.4-8.2 0-Nut-475295:55 LIPID CHOL 287 mg/dL (Abnormal) Comments: <200 [...] mg/dL VLDL 50 mg/dL (Abnormal) Range: 40 7-Awf-362206:55 MICROALB:CRE UR MALB:CREAT 28.3 {mg/g_CRE} (Normal) MICROALBUMIN,UR 41.7 mg/L (Normal) UR CREAT 147.6 mg/dL (Normal) :55 TSH 5.53 {uIU/mL} (Abnormal) Range: 0.34-4.82 :25 TSH 0.16 {uIU/mL} (Abnormal) Range: 0.34-4.82 :31 HgA1C , Office (40943) Comments: done HgA1C , Office 6.5 % (Normal) Range: 4.6 - 7.1 :31 Blood Glucose , Office (00082) Comments: done Blood Glucose , Office 128 (Normal) :01 TSH 5.15 {uIU/mL} (Abnormal) Range: 0.34-4.82 :12 HgA1C , Office (76124) Comments: done HgA1C , Office 6.2 % (Normal) Range: 4.6 - 7.1 :12 Blood Glucose , Office (41681) Comments: done Blood Glucose , Office 187 [...] Serum 117 ng/mL (Normal) Comments: PERFORMED BY: [facility] [id number] Range: 10-291 :33 Iron and TIBC Comments: PERFORMED BY: [facility] [id number] Iron Bind.Cap.(TIBC) 304 ug/dL (Normal) Range: 250-450 Iron Saturation 26 % (Normal) Range: 15-55 Iron, Serum 78 ug/dL (Normal) Range: 35-155 UIBC 226 ug/dL (Normal) Range: 150-375 : Vitamin B12 412 pg/mL (Normal) Comments: PERFORMED BY: [facility] [id number] 33 Range: 211-911 :56 LIPID CHOL 222 [...] (Normal) Range: 6.4-8.2 :07 HgA1C , Office (85900) Comments: done HgA1C , Office 5.9 % (Normal) Range: 4.6 - 7.1 :07 Blood Glucose , Office (89716) Comments: done Blood Glucose , Office 132 [...] mg/dL (Abnormal) Range: 34-200 Comments: Performed At: [address] [id number] :08 IRON+TIBC IRON SATURATION 17.9 % (Normal) [...] mg/dL (Normal) Range: 34-200 Comments: Performed At: [address] [id number] :56 IRON+TIBC IRON SATURATION 17.1 % (Normal) [...] 1.49 INDETERMINANT > OR = 1.50 SUGGEST CO :05 CPK TOTAL 149 U/L (Normal) Comments: Precautions*: NOT APPLICABLEINDICATE CK '1', '2', '3', OR 'R' FOR RANDOM: 2 Range: 215 :05 CPKMB 1.1 ng/mL (Normal) Comments: Precautions*: NOT APPLICABLEINDICATE CK '1', '2', '3', OR 'R' FOR RANDOM: 2 Range: 0.0-5.0 Comments: CK-MB and RI Interpretation MB Relative Index Non-AMI <or= 5 NA Indeterminate > 5 <or= 4 AMI > 5 > 4 1-Hid-914432:05 TROPONIN-I < 0.04 ng/mL (Normal) Comments: Precautions*: NOT APPLICABLEINDICATE CK '1', '2', '3', OR 'R' FOR RANDOM: 2 Comments: TROPONIN-I EXPECTED VALUES < 0.50 NEGATIVE 0.50 - 1.49 INDETERMINANT > OR = 1.50 SUGGEST CO :15 PRO TIME Comments: Precautions*: NOT APPLICABLE INR 1.0 (Normal) PROTIME 12.6 s (Normal) Range: 11.7-13.3 :15 TROPONIN-I < 0.04 ng/mL (Normal) Comments: Precautions*: NOT APPLICABLE Comments: TROPONIN-I EXPECTED VALUES < 0.50 NEGATIVE 0.50 - 1.49 INDETERMINANT > OR = 1.50 SUGGEST CO :00 BMP Comments: COMMENTS: FEARONPrecautions*: NOT APPLICABLEINDICATE [...] 1.49 INDETERMINANT > OR = 1.50 SUGGEST CO :48 HgA1C , Office (47464) HgA1C , Office 6.4 % (Normal) Range: 4.6 - 7.1 :48 Blood Glucose , Office (68348) Blood Glucose , Office 113 (Normal) Plan [...] Indication: Double vision Double vision : Reviewed [employer] Letter Indication: Double vision Fatty liver : [...] BMI 36.0-36.9,adult Right hip pain : Reviewed [employer] Letter Indication: Right hip pain Right hip [...] (monoclonal gammopathy of unknown significance) : Reviewed [employer] Letter- stable and discharged from onc Indication: [...] Fall down steps, initial encounter : Reviewed [employer] Letter Indication: Fall down steps, initial encounter [...] infarction, unspecified Cerebral infarction, unspecified : Reviewed [employer] Letter Indication: Cerebral infarction, unspecified Upper respiratory [...] Planned Observations CBC, PLATELETS & AUT DIFF (50932)Indication: Other vitamin B12 deficiency anemia On: :17 Request TSH (29862)Indication: Abnormal TSH On: :38 Request T4, FREE (THYROXINE) (98965)Indication: Abnormal TSH On: :38 Request T3, FREE (TRIDOTHYRONINE) (15015)Indication: Abnormal TSH On: :38 Request ANTI-LIVER/KIDNEY MICROSOMAL ANTIBODY (52841)Indication: Elevated liver enzymes On: 42-Qiq-692301:34 Request TSH (11735)Indication: Abnormal TSH On: :31 Request T4, FREE (THYROXINE) (14780)Indication: Abnormal TSH On: :31 Request T3, FREE (TRIDOTHYRONINE) (76526)Indication: Abnormal TSH On: 17-Gwm-812169:31 Request BETA-2 MICROGLOBULIN (72319)Indication: Abnormal blood chemistry On: 99-Wyn-911467:08 Request Urinalysis, Office (54358)Indication: Urinary frequency On: 21-Yqx-972451:38 Request CBC WITH MANUAL DIFF (42057)Indication: Therapeutic drug monitoring On: :57 Request Metabolic Panel, Basic (72812)Indication: Therapeutic drug monitoring On: :57 Request Methymalonic Acid, Serum (23390)Indication: Vitamin B 12 deficiency On: 59-Nia-302925:51 Request CALCIFIDIOL (49428) VIT D 25Indication: Vitamin D deficiency, unspecified On: 98-Shy-138232:45 Request LIPID PANEL (53435)Indication: Other and unspecified hyperlipidemia On: 36-Wlx-668827:45 Request CALCIFIDIOL (09210) VIT D 25Indication: Uncontrolled type II diabetes mellitus On: :46 Request TSH (73167)Indication: Uncontrolled type II diabetes mellitus On: :46 Request URINALYSIS, W/ MICRO (89492)Indication: Uncontrolled type II diabetes mellitus On: :46 Request MICROALBUMIN: CREATININE RATIO (33693) AND (24680)Indication: Uncontrolled type II diabetes mellitus On: :46 Request METABOLIC PANEL, COMPREHENSIVE (81225)Indication: Uncontrolled type II diabetes mellitus On: :46 Request LIPID PANEL (49326)Indication: Uncontrolled type II diabetes mellitus On: :45 Request CBC W/AUTO DIFF WBC (41859)Indication: Uncontrolled type II diabetes mellitus On: :45 Request Rapid Flu (52226 x 2)Indication: Flu-like symptoms On: 72-Gud-203522:12 Request VITAMIN B-12 (CYANOCOBALAMIN) (00284)Indication: Vitamin B 12 deficiency On: 82-Hpo-191817:45 Request FECAL OCCULT- Tubes sent home (08889)Indication: Encounter for screening for malignant neoplasm of colon (Renamed from Special screening for malignant neoplasms, colon) On: 71-Dxy-184975:35 Request THYROXINE FREE (76059)Indication: Tachycardia On: 3-Dyc-857065:04 Request FREE TRIDOTHYRONINE (T3) (28752)Indication: Tachycardia On: 1-Mny-229659:04 Request TSH (THYROID STIMULATING HORMONE) (56525)Indication: Tachycardia On: 2-Txd-178057:04 Request serum immunofixation (46694)Indication: MGUS (monoclonal gammopathy of unknown significance) On: 67-Ofy-366793:14 Request urine immunofixation (27149)Indication: MGUS (monoclonal gammopathy of unknown significance) On: 12-Cdx-096704:14 Request serum free light chains (70960)Indication: MGUS (monoclonal gammopathy of unknown significance) On: 61-Xuu-903815:14 Request CBC W/AUTO DIFF WBC (81179)Indication: Diabetes mellitus type 2, controlled On: 79-Lsq-047086:13 Request MICROALBUMIN: CREATININE RATIO (29142) AND (02711)Indication: Diabetes mellitus type 2, controlled On: 20-Fkn-602224:13 Request METABOLIC PANEL, COMPREHENSIVE (99158)Indication: Diabetes mellitus type 2, controlled On: 99-Uaz-036649:13 Request LIPID PANEL (03695)Indication: Mixed hyperlipidemia On: 12-Hrq-899189:13 Request VITAMIN B-12 (CYANOCOBALAMIN) (56587)Indication: Other vitamin B12 deficiency anemia On: :12 Request CBC (AUTO) (07395)Indication: Other vitamin B12 deficiency anemia On: 05-Hfd-579381:12 Request Vitamin D Hydroxy (54076)Indication: Vitamin D deficiency, unspecified On: 27-Ebm-922967:12 Request LIPID PANEL (78722)Indication: Mixed hyperlipidemia On: 9-Czv-881814:42 Request METABOLIC PANEL, COMPREHENSIVE (67991)Indication: Benign essential hypertension (Renamed from Benign essential HTN) On: 9-Qwz-580221:41 Request MICROALBUMIN: CREATININE RATIO (45737) AND (52466)Indication: Benign essential hypertension (Renamed from Benign essential HTN) On: :41 Request SPEP (10497)Indication: Anemia, unspecified On: 94-Ycq-928871:17 Request UPEP ([id number])Indication: Anemia, unspecified On: 24-Mqo-225806:17 Request CBC W/AUTO DIFF WBC (75892)Indication: Iron (Fe) deficiency anemia On: 8-Nyj-131519:38 Request TSH (12301)Indication: Acquired hypothyroidism On: 3-Xwm-980794:38 Request TSH ([id number])Indication: Acquired hypothyroidism On: 20-Pfl-937211:34 Request SPEP ([id number])Indication: Iron (Fe) deficiency anemia On: 88-Zif-424234:34 Request UPEP (70205)Indication: Iron (Fe) deficiency anemia On: 74-Pwz-678210:34 Request IRON BINDING CAPACITY (TIBC) (13507)Indication: Iron (Fe) deficiency anemia On: 08-Pnh-893628:34 Request FERRITIN ([id number])Indication: Iron (Fe) deficiency anemia On: 46-Pqn-195426:34 Request IRON ([id number])Indication: Iron (Fe) deficiency anemia On: 33-Whn-020750:34 Request CBC, PLATELETS & AUT DIFF (71208)Indication: Other vitamin B12 deficiency anemia On: :34 Request VITAMIN B-12 (CYANOCOBALAMIN) (75219)Indication: Other vitamin B12 deficiency anemia On: 65-Xjj-248299:33 Request Hemoglobin Glyclated (HGB A1C) (93814)Indication: Diabetes mellitus type 2, controlled On: 03-Zmb-547888:33 Request CBC, PLATELETS & AUT DIFF ([id number])Indication: Other vitamin B12 deficiency anemia On: :31 Request VITAMIN B-12 (CYANOCOBALAMIN) (01327)Indication: Other vitamin B12 deficiency anemia On: :30 Request METABOLIC PANEL, COMPREHENSIVE (11309)Indication: Benign essential hypertension (Renamed from Benign essential HTN) On: :30 Request LIPID PANEL (79606)Indication: Other and unspecified hyperlipidemia On: :30 Request Vitamin D Hydroxy (83566)Indication: Vitamin D deficiency, unspecified On: : Request NQMDT-OWMRRMJNMQL-QZZQG ([id number])Indication: Fatty liver On: : Request KSTEX-CTTTJRXPPCL-DYUVG ([id number])Indication: Fatty liver On: 76-Hxp-884238:24 Request LIPID PANEL (45209)Indication: Mixed hyperlipidemia On: :23 Request TSH (70783)Indication: Acquired hypothyroidism On: 82-Ego-390399:23 Request MICROALBUMIN: CREATININE RATIO (32233) AND (32414)Indication: Diabetes mellitus type 2, controlled On: 76-Fat-183933:23 Request METABOLIC PANEL, COMPREHENSIVE (24305)Indication: Diabetes mellitus type 2, controlled On: 71-Mkt-102695:23 Request Vitamin D Hydroxy (46307)Indication: Vitamin D deficiency, unspecified On: 49-Zlb-484498:23 Request CBC, PLATELETS & AUT DIFF (47986)Indication: Other vitamin B12 deficiency anemia On: 80-Tjs-497749:20 Request VITAMIN B-12 (CYANOCOBALAMIN) (11722)Indication: Other vitamin B12 deficiency anemia On: 66-Ygj-956753:20 Request Vitamin D Hydroxy (21741)Indication: Vitamin D deficiency, unspecified On: 28-Zvj-586302:38 Request VITAMIN B-12 (CYANOCOBALAMIN) (51933)Indication: Other vitamin B12 deficiency anemia On: :38 Request CBC W/AUTO DIFF WBC (28109)Indication: Other vitamin B12 deficiency anemia On: 54-Khl-351943:37 Request TSH (77145)Indication: Acquired hypothyroidism On: 05-Zoq-866082:37 Request LIPID PANEL (65984)Indication: Mixed hyperlipidemia On: :37 Request NHEND-KGQKXUQOZXS-YPMWV (79762)Indication: Fatty liver On: :08 Request PTT (Activated Partial Thromboplastin Time) (07743)Indication: Fatty liver On: : Request PT (Prothrobim Time) (79803)Indication: Fatty liver On: :08 Request Vitamin D Hydroxy (27071)Indication: Vitamin D deficiency, unspecified On: 58-Aow-443108: Request VITAMIN B-12 (CYANOCOBALAMIN) (12212)Indication: Other vitamin B12 deficiency anemia On: : Request CBC W/AUTO DIFF WBC (34978)Indication: Diabetes mellitus type 2, controlled On: : Request METABOLIC PANEL, COMPREHENSIVE (60284)Indication: Diabetes mellitus type 2, controlled On: 39-Zwe-749868: Request LIPID PANEL (85132)Indication: Mixed hyperlipidemia On: : Request LIPID PANEL (88546)Indication: HYPERTENSION, NOS On: 5-Vhl-162051:40 Request CBC WITH MANUAL DIFF ([id number])Indication: HYPERTENSION, NOS On: 1-Wot-785761:40 Request METABOLIC PANEL, COMPREHENSIVE (16434)Indication: HYPERTENSION, NOS On: :40 Request FECAL OCCULT- Tubes sent home (73465)Indication: Anemia, unspecified On: 26-Hxa-731130:38 Request IRON (84362)Indication: Anemia, unspecified On: :38 Request CBC WITH MANUAL DIFF ([id number])Indication: HYPERTENSION, NOS On: 3-Sme-794113:29 Request METABOLIC PANEL, COMPREHENSIVE (12303)Indication: Uncontrolled type II diabetes mellitus On: 0-Vxi-822511:28 Request TSH (THYROID STIMULATING HORMONE) (75899)Indication: Acquired hypothyroidism On: 87-Wyd-972770:08 Request HgA1C , Office (77958)Indication: Diabetes mellitus type 2, controlled On: 60-Feh-449891:55 Request VITAMIN B-12 (CYANOCOBALAMIN) (03142)Indication: Other vitamin B12 deficiency anemia On: 3-Wpn-080447:17 Request LIPID PANEL (42059)Indication: Other and unspecified hyperlipidemia On: :17 Request MICROALBUMIN: CREATININE RATIO (58704) AND ([id number])Indication: Uncontrolled type II diabetes mellitus On: : Request METABOLIC PANEL, COMPREHENSIVE (38474)Indication: Uncontrolled type II diabetes mellitus On: : Request HgA1C , Office (94434)Indication: Diabetes mellitus type 2, controlled On: :25 Request LIPID PANEL (75371)Indication: Other and unspecified hyperlipidemia On: : Request METABOLIC PANEL, COMPREHENSIVE (71790)Indication: Diabetes mellitus type 2, controlled On: : Request MICROALBUMIN: CREATININE RATIO (80934) AND (61533)Indication: Diabetes mellitus type 2, controlled On: : Request VITAMIN B-12 (CYANOCOBALAMIN) (56058)Indication: Other vitamin B12 deficiency anemia On: : Request CBC, PLATELETS & AUT DIFF (54558)Indication: Other vitamin B12 deficiency anemia On: :11 Request Vitamin D Hydroxy (14535)Indication: Vitamin D deficiency, unspecified On: 26-Fms-884121:10 Request Blood Glucose , Office (09181)Indication: Diabetes mellitus type 2, controlled On: :29 Request LIPID PANEL (27095)Indication: Other and unspecified hyperlipidemia On: :26 Request Vitamin D Hydroxy (82994)Indication: Vitamin D deficiency, unspecified On: : Request VITAMIN B-12 (CYANOCOBALAMIN) (25820)Indication: Other vitamin B12 deficiency anemia On: : Request METABOLIC PANEL, COMPREHENSIVE (87032)Indication: Benign essential hypertension (Renamed from Benign essential HTN) On: : Request MICROALBUMIN: CREATININE RATIO (29990) AND (72408)Indication: Uncontrolled type II diabetes mellitus On: : Request Sputum Culture (57360)Indication: Chronic cough On: 5-Jww-229857:58 Request RANI CULTURE-OTHER (82658)Indication: Sore throat On: 09-Yab-030705:06 Request Urinalysis, Office (00707)Indication: Abnormal urine On: :14 Request RANI CULTURE-OTHER (68721)Indication: Abnormal urine On: :14 Request CCP ANTIBODY (49288)Indication: History of poliomyelitis (Renamed from H/O acute poliomyelitis) On: : Request ANTI-Sm (ANTI [place] ANTIBODY) (56458) test code 710695Yjoeggidda: History of poliomyelitis (Renamed from H/O acute poliomyelitis) On: : Request RHEUMATOID FACTOR-QUANT (66766) test code 339208Syedniogfq: History of poliomyelitis (Renamed from H/O acute poliomyelitis) On: : Request Vitamin D Hydroxy (03101)Indication: Vitamin D deficiency, unspecified On: 99-Pks-965271:15 Request LIPID PANEL (18773)Indication: Other and unspecified hyperlipidemia On: :15 Request TSH (32807)Indication: Acquired hypothyroidism On: 11-Itd-181220:15 Request METABOLIC PANEL, COMPREHENSIVE (30968)Indication: Diabetes mellitus type 2, controlled On: 73-Apk-945200:14 Request VITAMIN B-12 (CYANOCOBALAMIN) (84411)Indication: Other vitamin B12 deficiency anemia On: 98-Bkt-977523:08 Request MICROALBUMIN: CREATININE RATIO (31948) AND (10644)Indication: Uncontrolled type II diabetes mellitus On: 68-Def-273450:30 Request METABOLIC PANEL, COMPREHENSIVE (55459)Indication: Uncontrolled type II diabetes mellitus On: 56-Qaw-070211:30 Request TSH (34202)Indication: Acquired hypothyroidism On: 62-Bfn-832187:30 Request Vitamin D Hydroxy (04018)Indication: Vitamin D deficiency, unspecified On: 94-Rnw-430074:30 Request LIPID PANEL (46983)Indication: Other and unspecified hyperlipidemia On: 93-Lkh-729566:29 Request LIPID PANEL (66165)Indication: Other and unspecified hyperlipidemia On: 30-Dwf-686237:51 Request TSH ([id number])Indication: Acquired hypothyroidism On: 24-Zhr-876567:50 Request Vitamin D Hydroxy (46094)Indication: Vitamin D deficiency, unspecified On: 15-Edk-517477:50 Request CBC WITH MANUAL DIFF (03613)Indication: Diabetes mellitus type 2, controlled On: 43-Lcg-907347:50 Request METABOLIC PANEL, COMPREHENSIVE (43016)Indication: Diabetes mellitus type 2, controlled On: 06-Jde-072359:50 Request Vitamin D Hydroxy (52301)Indication: Vitamin D deficiency, unspecified On: :44 Request VITAMIN B-12 (CYANOCOBALAMIN) (85176)Indication: Other vitamin B12 deficiency anemia On: :44 Request CBC WITH MANUAL DIFF ([id number])Indication: Anemia, unspecified On: :43 Request METABOLIC PANEL, COMPREHENSIVE (19250)Indication: Diabetes mellitus type 2, controlled On: :43 Request MICROALBUMIN: CREATININE RATIO (93987) AND (84469)Indication: Diabetes mellitus type 2, controlled On: :43 Request LIPID PANEL (58027)Indication: Other and unspecified hyperlipidemia On: :43 Request TSH (92900)Indication: Acquired hypothyroidism On: :43 Request Vitamin D Hydroxy (45385)Indication: Vitamin D deficiency, unspecified On: :03 Request LIPID PANEL (82765)Indication: Other and unspecified hyperlipidemia On: :03 Request CBC WITH MANUAL DIFF (01090)Indication: Diabetes mellitus type 2, controlled On: :02 Request METABOLIC PANEL, COMPREHENSIVE (73560)Indication: Diabetes mellitus type 2, controlled On: 5-Hzx-163939:02 Request VITAMIN B-12 (CYANOCOBALAMIN) (06389)Indication: Other vitamin B12 deficiency anemia On: 3-Wfy-565779:36 Request Comments: Lot #[id number]-left deltoidDose-1 mlgiven by: Dani Rivera LPN LIPID PANEL (55561)Indication: Other and unspecified hyperlipidemia On: :28 Request METABOLIC PANEL, COMPREHENSIVE (81831)Indication: Uncontrolled type II diabetes mellitus On: :28 Request TSH ([id number])Indication: Acquired hypothyroidism On: :28 Request Vitamin D Hydroxy (64710)Indication: Vitamin D deficiency, unspecified On: :22 Request CBC WITH MANUAL DIFF (47610)Indication: Anemia, unspecified On: :22 Request CBC WITH MANUAL DIFF (78804)Indication: Other vitamin B12 deficiency anemia On: 0-Ttu-022448:20 Request Blood Glucose , Office (89306)Indication: Uncontrolled type II diabetes mellitus On: :15 Request Comments: 149 HgA1C , Office (44111)Indication: Uncontrolled type II diabetes mellitus On: :15 Request METABOLIC PANEL, COMPREHENSIVE (32936)Indication: Other and unspecified hyperlipidemia On: :22 Request LIPID PANEL (36911)Indication: Other and unspecified hyperlipidemia On: :22 Request TSH ([id number])Indication: Acquired hypothyroidism On: :22 Request HEMOGLOBIN GLYCLATED (HGB A1C) (41678)Indication: Abnormal glucose tolerance test On: 42-Oxa-459272:20 Request VITAMIN B-12 (CYANOCOBALAMIN) (65420)Indication: Other vitamin B12 deficiency anemia On: 35-Jlq-447897:17 Request Vitamin D Hydroxy (94564)Indication: Vitamin D deficiency, unspecified On: :21 Request VITAMIN B-12 (CYANOCOBALAMIN) (98220)Indication: Other vitamin B12 deficiency anemia On: 8-Jrh-645196:20 Request LIPID PANEL (12453)Indication: Abnormal glucose tolerance test On: :20 Request CBC WITH MANUAL DIFF (91553)Indication: Abnormal glucose tolerance test On: 4-Fty-096425:20 Request METABOLIC PANEL, COMPREHENSIVE (85402)Indication: Abnormal glucose tolerance test On: :20 Request METABOLIC PANEL, COMPREHENSIVE (71062)Indication: Abnormal glucose tolerance test On: :59 Request CBC WITH MANUAL DIFF (69493)Indication: Abnormal glucose tolerance test On: 2-Civ-953692:59 Request Vitamin D Hydroxy (31428)Indication: Vitamin D deficiency, unspecified On: 6-Dpg-053624:59 Request VITAMIN B-12 (CYANOCOBALAMIN) (70468)Indication: Other vitamin B12 deficiency anemia On: 7-Tun-186469:59 Request TSH ([id number])Indication: Acquired hypothyroidism On: 0-Qar-702961:58 Request LIPID PANEL (32482)Indication: Other and unspecified hyperlipidemia On: 1-Zos-604396:58 Request CCP ANTIBODY ([id number])Indication: Pain in unspecified joint On: 01-Ptp-357709:22 Request VITAMIN B-12 (CYANOCOBALAMIN) (36582)Indication: Other vitamin B12 deficiency anemia On: 1-Kmq-437382:10 Request Vitamin D Hydroxy (49729)Indication: Vitamin D deficiency, unspecified On: 2-Hiv-489895:10 Request MICROALBUMIN: CREATININE RATIO (55026) AND (51064)Indication: Uncontrolled type II diabetes mellitus On: :10 Request CBC WITH MANUAL DIFF (08464)Indication: Uncontrolled type II diabetes mellitus On: 1-Cla-764235:10 Request METABOLIC PANEL, COMPREHENSIVE (88091)Indication: Benign essential hypertension (Renamed from Benign essential HTN) On: 8-Lmd-715219:09 Request LIPID PANEL (26302)Indication: Other and unspecified hyperlipidemia On: 4-Ewk-175368:09 Request TSH (10721)Indication: Acquired hypothyroidism On: 8-Mhu-360755:39 Request VITAMIN B-12 (CYANOCOBALAMIN) (15625)Indication: Other vitamin B12 deficiency anemia On: 5-Eae-831103:37 Request HEPATIC FUNCTION PANEL (05246)Indication: Other and unspecified hyperlipidemia On: 4-Lsn-529278:36 Request LIPID PANEL (30912)Indication: Other and unspecified hyperlipidemia On: 2-Bqd-027579:36 Request Vitamin D Hydroxy (23375)Indication: Vitamin D deficiency, unspecified On: 6-Bij-118773:36 Request METABOLIC PANEL, COMPREHENSIVE (21519)Indication: Benign essential hypertension (Renamed from Benign essential HTN) On: 6-Wcu-694199:35 Request LIPID PANEL (86270)Indication: Other and unspecified hyperlipidemia On: 6-Xta-478871:35 Request Vitamin D Hydroxy (65889)Indication: Vitamin D deficiency, unspecified On: 8-Uhl-976837:30 Request Vitamin D Hydroxy (84128)Indication: Vitamin D deficiency, unspecified On: 99-Lrj-479481:10 Request MICROALBUMIN: CREATININE RATIO (38141) AND (53806)Indication: Uncontrolled type II diabetes mellitus On: 15-Lbz-440732:07 Request LIPID PANEL (92342)Indication: Other and unspecified hyperlipidemia On: :07 Request TSH (58726)Indication: Acquired hypothyroidism On: :07 Request VITAMIN B-12 (CYANOCOBALAMIN) (43183)Indication: Other vitamin B12 deficiency anemia On: 05-Qob-438070:42 Request Vitamin D Hydroxy (32319)Indication: Vitamin D deficiency, unspecified On: :50 Request IRON BINDING CAPACITY (TIBC) (43010)Indication: Iron (Fe) deficiency anemia On: :50 Request LDH (LD) (LACTATE DEHYDROGENASE) (42086)Indication: Iron (Fe) deficiency anemia On: :50 Request FERRITIN (82225)Indication: Iron (Fe) deficiency anemia On: :50 Request IRON (09808)Indication: Iron (Fe) deficiency anemia On: :50 Request CBC WITH MANUAL DIFF ([id number])Indication: Iron (Fe) deficiency anemia On: :50 Request HEPATIC FUNCTION PANEL (70235)Indication: Other and unspecified hyperlipidemia On: :44 Request LIPID PANEL (89892)Indication: Other and unspecified hyperlipidemia On: :44 Request CBC WITH MANUAL DIFF ([id number])Indication: Other vitamin B12 deficiency anemia On: 9-Iui-042500:54 Request MICROALBUMIN: CREATININE RATIO (22453) AND (64985)Indication: Glucose intolerance (no malabsorption) On: 9-Jke-531199:54 Request METABOLIC PANEL, COMPREHENSIVE (42005)Indication: HYPERTENSION, NOS On: :54 Request LIPID PANEL (43921)Indication: Other and unspecified hyperlipidemia On: :53 Request VITAMIN B-12 (CYANOCOBALAMIN) (19954)Indication: Other vitamin B12 deficiency anemia On: :53 Request IRON ([id number])Indication: Iron (Fe) deficiency anemia On: :53 Request Vitamin D Hydroxy (15992)Indication: Osteopenia On: 0-Vhn-772928:49 Request Methylmalonic acid, serum 16908Burvprofgy: Other vitamin B12 deficiency anemia On: :03 Request VITAMIN B-12 (CYANOCOBALAMIN) (49015)Indication: Other vitamin B12 deficiency anemia On: 88-Zzb-309176:03 Request TSH (05328)Indication: Acquired hypothyroidism On: :03 Request HgA1C , Office (37278)Indication: Abnormal glucose tolerance test On: 3-Jds-592397:06 Request TSH (71694)Indication: Acquired hypothyroidism On: :35 Request LIPID PANEL (18540)Indication: Other and unspecified hyperlipidemia On: :35 Request METABOLIC PANEL, COMPREHENSIVE (35502)Indication: SOB (shortness of breath) on exertion On: :34 Request CBC WITH MANUAL DIFF ([id number])Indication: SOB (shortness of breath) on exertion On: :34 Request TSH (98869)Indication: Acquired hypothyroidism On: 8-Ubu-299338:46 Request Comments: do in 6 weeks TSH (11857)Indication: Acquired hypothyroidism On: 39-Qwl-164401:15 Request Comments: DO IN 6 WEEKS WITH MEDICATION CHANGE TSH (54943)Indication: Other malaise and fatigue On: 92-Gkd-72650:49 Request Iron Binding Capacity (TIBC) (00135)Indication: Iron (Fe) deficiency anemia On: 65-Iop-559062:43 Request Ferritin (03284)Indication: Iron (Fe) deficiency anemia On: 55-Bwa-994881:43 Request Iron (47384)Indication: Iron (Fe) deficiency anemia On: 39-Hkv-015172:43 Request HEPATIC FUNCTION PANEL (08210)Indication: Mixed hyperlipidemia On: 00-Evf-120071:42 Request LIPID PANEL (86414)Indication: Mixed hyperlipidemia On: 93-Lta-016061:42 Request Comments: do in 3 months HEPATIC FUNCTION PANEL (07483)Indication: Mixed hyperlipidemia On: 1-Hxx-161627:11 Request LIPID PANEL (01461)Indication: Mixed hyperlipidemia On: 3-Mhp-966109:11 Request Comments: do in 3 mo TSH (76589)Indication: Acquired hypothyroidism On: Request VITAMIN B-12 (CYANOCOBALAMIN) (83646)Indication: Anemia, unspecified On: Request LDH (LD) (LACTATE DEHYDROGENASE) (03886)Indication: Anemia, unspecified On: Request RETICULOCYTE COUNT MANUL (29690)Indication: Anemia, unspecified On: Request IRON BINDING CAPACITY (TIBC) (82277)Indication: Anemia, unspecified On: Request IRON (43995)Indication: Anemia, unspecified On: Request FOLIC ACID SERUM (50968)Indication: Anemia, unspecified On: Request HAPTOGLOBIN (40256)Indication: Anemia, unspecified On: Request FERRITIN (79593)Indication: Anemia, unspecified On: Request CBC, PLATELETS & AUT DIFF (21940)Indication: Anemia, unspecified On: Request HgA1C , Office (49816)Indication: Abnormal glucose tolerance test On: : Request CBC with manual diff (20590)Indication: Anemia, unspecified On: :49 Request HgA1C , Office (69654)Indication: Abnormal glucose tolerance test On: 89-Gkx-352413:30 Request Comments: controlled URINALYSIS W/O MICRO (08546)Indication: HYPERTENSION, NOS On: :03 Request TSH ([id number])Indication: Acquired hypothyroidism On: :03 Request MICROALBUMIN URINE QUANT (53092)Indication: HYPERTENSION, NOS On: 47-Dpy-175119:03 Request METABOLIC PANEL, COMPREHENSIVE (15964)Indication: HYPERTENSION, NOS On: :03 Request LIPID PANEL (79995)Indication: HYPERTENSION, NOS On: 11-Zoa-230921:03 Request CBC WITH MANUAL DIFF ([id number])Indication: HYPERTENSION, NOS On: 19-Ivn-244179:03 Request Planned Procedures Aerosol Treatment (77779)By: On: 14-Apr-2018 Intent Thelma Sofia Comments: Lungs clear after albuterol aerosol treatment Ultrasound - LiverBy: Melanie DO, On: 21-Nov-2017 Intent Doris Melanie DO, Doris Melanie DO, Doris B 12 Injection, 1000 mcg ([id number])By: On: 21-Nov-2017 Intent Melanie DO, Doris Melanie DO, Comments: Vitamin b12 1000mcg injection lot:[id number]:04/2019L DELT IMpt tolerated well CARYN DUMONT Doris Melanie DO, Doris PHYSICAL THERAPY (18553)By: [place], On: 28-Oct-2017 Intent Thelma Radiology - Hip - LeftBy: [place], On: 28-Oct-2017 Intent Thelma Aerosol Treatment (85054)By: Melanie On: 07-Aug-2017 Intent DO, Doris Melanie DO, Doris Comments: more a/e less nois e Melanie DO, Doris Spirometry (59809)By: Melanie KEBEDE, On: 07-Aug-2017 Intent Doris Melanie DO, Doris Melanie Comments: really poor techniq DO, Doris Radiology - Chest- PA and LatBy: On: 07-Aug-2017 Intent Melanie DO, Doris Melanie DO, Doris Melanie DO, Doris IV Needle placement (64308)By: On: 02-Aug-2017 Intent Melanie DO, Doris Melanie DO, Doris Melanie DO, Doris INFUSION, NORMAL SALINE SOLUTION , On: 02-Aug-2017 Intent 1000 CC (Special Coverage Comments: lot:[id number]:02-26-2019rte:right anticubdose:1000ml given by:david Snow LPN Instructions Apply. See MCM: 2048) ([id number])By: Melanie DO, Dorsi Melanie DO, Doris Melanie DO, Doris INFUSION, NORMAL SALINE SOLUTION , On: 01-Aug-2017 Intent 1000 CC (Special Coverage Comments: lot:[id number]:02-26-2019rte:IV left anticubdose:1000ml NS given by:david Snow LPN Instructions Apply. See MCM: 2048) (J7030)By: Tobi, Marcia Aerosol Treatment (86032)By: Melanie On: 01-Aug-2017 Intent Doris KEBEDE MelanieDoris driscoll DO Comments: more a/e less junky sounding Melanie DODoris PNEUM VAC ADLT/IMUMNOSPR, SBC/INTRM On: 25-Apr-2017 Intent (91487)By: Doris Navarro DO Comments: 0.5cc given sq lt arm lot [id number] exp 09/05/18 Melanie DO, Doris Melanie DODoris INTENSIVE BEHAVIORAL THERAPY TO On: 25-Apr-2017 Intent REDUCE CARDIOVASCULAR DISEASE RISK, INDIVIDUAL, BUIP-OD-HFYN, ANNUAL, 15 MINUTES (G0446)By: Doris Navarro DO Melanie DO, Doris Melanie DODoris BOTF-MY-EWOA BEHAVIORAL COUNSELING On: 25-Apr-2017 Intent FOR OBESITY, 15 MINUTES (G0447)By: Doris Navarro DO Melanie DO, Doris Melanie DO, Doris B 12 Injection, 1000 mcg (J3420)By: On: 25-Apr-2017 Intent Melanie DO, Doris Melanie DO, Comments: 1 ml given lt arm lot [id number] exp 03/15 Doris Jay DO ELECTROCARDIOGRAM, COMPLETE (ECG) On: 25-Apr-2017 Intent (41982)By: Doris Navarro DO Comments: nsr no acute chg Melanie DO, Doris Melanie DO, Doris B 12 Injection, 1000 mcg (J3420)By: On: 14-Mar-2017 Intent Melanie DO, Doris Melanie DO, Comments: lot [id number] 09/16left [id number] mcgas, ELECTRO MECHANICAL TECHNOLOGIST Doris Melanie DO, Doris B 12 Injection, 1000 mcg (J3420)By: On: 31-Dec-2016 Intent Melanie DO Doris Melanie DO, Comments: [id number], ELECTRO MECHANICAL TECHNOLOGIST Doris Melanie DO, Doris B 12 Injection, 1000 mcg (J3420)By: On: 20-Sep-2016 Intent Melanie DO, Doris Melanie DO, Comments: lot:[id number]: 4/18Dose: 1,000 mcgSite: R dltdLocation; IMby:, ELECTRO MECHANICAL TECHNOLOGIST Doris Melanie DO, Doris Solu- Medrol Injection, 125mg On: 20-Aug-2016 Intent (J2930)By: MelanieJd driscoll DOeen Comments: lot: [id number]: 01/14site/route: LGM/IMamt:2mLVIS signed when applicableChelsea, FRAME TRIMMER Melanie DO, Doris Melanie DO, Doris Aerosol Treatment (04447)By: Melanie On: 20-Aug-2016 Intent DO, Doris Melanie DO, Doris Comments: albulterol 0.83%relistedned nad more a/e less noise Melanie DO, Doris B 12 Injection, 1000 mcg ([id number])By: On: 20-Aug-2016 Intent Melanie DO, Doris Melanie DO, Comments: lot: [id number]: ite/route: L del/IMamt: 1mLVIS signed when applicableChelsea, FRAME TRIMMER Doris Melanie DO, Doris Spirometry (45307)By: Melanie DO, On: 16-Aug-2016 Intent Doris Melanie DO, Doris Melanie Comments: ok stable - DO, Doris Aerosol Treatment (71734)By: Melanie On: 16-Aug-2016 Intent DO, Doris Melanie DO, Doris Comments: albulterol 0.83%more a.e stil some niose in RUL -- junky and easy to cough Melanie DO, Doris Solu- Medrol Injection, 125mg On: 16-Aug-2016 Intent ([id number])By: MelanieJd driscoll DOeen Comments: lot [id number] mgright gm, IMas ELECTRO MECHANICAL TECHNOLOGIST Melanie DO, Doris Melanie DO, Doris B 12 Injection, 1000 mcg (J3420)By: On: 20-Jul-2016 Intent Melanie DO, Doris Melanie DO, Comments: B12lot:[id number]:ite:rt deltroute:IMdose:1mlD.HAY Valentin Doris Melanie DO, Doris Solu- Medrol Injection, 125mg On: 20-Jul-2016 Intent (J2930)By: Doris Navarro DO Comments: lot: [id number]: 01/14site/route: RGM/IMamt: 2mLVIS signed when applicableChelsea, FRAME TRIMMER Melanie DO, Doris Melanie DO, Doris Aerosol Treatment (73695)By: Melanie On: 20-Jul-2016 Intent DO, Doris Melanie DO, Doris Comments: less wheeze good a/e- less irritability with breathing Doris Navarro DO Radiology - Chest- PA and LatBy: On: 20-Jul-2016 Intent Melanie DO, Doris Melanie DO, Doris Melanie DO, Doris Spirometry ([id number])By: Melanie KEBEDE, On: 20-Jul-2016 Intent Doris Melanie DO, Doris Melanie Comments: mild restriction =- poor curve and technique DO, Doris ELECTROCARDIOGRAM, COMPLETE (ECG) On: 20-Jul-2016 Intent ([id number])By: Doris Navarro DO Comments: sinus braden no acute chg Melanie DO, Doirs Melanie DO, Doris B 12 Injection, 1000 mcg (J3420)By: On: 29-May-2016 Intent Melanie DO, Doris Melanie DO, Comments: Lot:[id number]:11/13Dose:1mlRoute:IMSite:r armGiven By:SAADIA signed Doris Melanie DO, Doris Flu Vaccine (Quadrivalent) [id number]: On: 29-May-2016 Intent Melanie DO, Doris Melanie DO, Comments: Lot:[id number]:01/25/17Dose:0.5mLRoute:IMSite:L DltdGiven By:SAADIA signed Doris Melanie DO, Doris B 12 Injection, 1000 mcg (J3420)By: On: 21-May-2016 Intent Melanie DO, Doris Melanie DO, Doris Melanie DO, Doris B 12 Injection, 1000 mcg (J3420)By: On: 18-May-2016 Intent Melanie DO, Doris Melanie DO, Comments: B12lot:[id number]:ite:rt deltroute:IMdose:1mlD.HAY Valentin Doris Melanie DO, Doris B 12 Injection, 1000 mcg (J3420)By: On: 11-May-2016 Intent Melanie DO, Doris Melanie DO, Comments: lot [id number] [facility] [place] dltdas, ELECTRO MECHANICAL TECHNOLOGIST Doris Melanie DO, Doris B 12 Injection, 1000 mcg (J3420)By: On: 08-May-2016 Intent Melanie DO, Doris Melanie DO, Comments: B12lot:[id number]:ite:rt deltroute:IMdose:1mlD.Homero HAY Doris Melanie DO, Doris B 12 Injection, 1000 mcg (J3420)By: On: 04-May-2016 Intent Visit, Nurse Comments: given - see flowsheet B 12 Injection, 1000 mcg (J3420)By: On: 27-Apr-2016 Intent Melanie DO, Doris Melanie DO, Comments: Lot:[id number]:11/13Dose:1mlRoute:IMSite:l armGiven By:JHOSSEIN signed Doris Melanie DO, Doris B 12 Injection, 1000 mcg (J3420)By: On: 20-Apr-2016 Intent Melanie DO, Doris Melanie DO, Comments: lot: [id number]: ite/route: R del/IMamt: 1mLVIS signed when applicableChelsea, FRAME TRIMMER Doris Melanie DO, Doris B 12 Injection, 1000 mcg (J3420)By: On: 13-Apr-2016 Intent Mckinley Valentin Comments: B12lot:[id number]:ite:lt deltroute:IMdose:1mlD.HAY Valentin INTENSIVE BEHAVIORAL THERAPY TO On: 09-Apr-2016 Intent REDUCE CARDIOVASCULAR DISEASE RISK, INDIVIDUAL, ZGZX-IS-GVOY, ANNUAL, 15 MINUTES (G0446)By: Melanie DO, Doris Melanie DO, Doris Melanie DO, Doris RIMA-GU-RURT BEHAVIORAL COUNSELING On: 09-Apr-2016 Intent FOR OBESITY, 15 MINUTES (G0447)By: Melanie DO, Doris Melanie DO, Doris Melanie DO, Doris MAMMOGRAM, SCREENING, BOTH BREAST On: 09-Apr-2016 Intent ([id number])By: Melanie DO, Doris Melanie DO, Doris Melanie DO, Doris DEXA SCAN AXIAL SKELETON ([id number])By: On: 09-Apr-2016 Intent Melanie DO, Doris Melanie DO, Doris Melanie DO, Doris B 12 Injection, 1000 mcg (J3420)By: On: 06-Apr-2016 Intent Melanie DO, Doris Melanie DO, Comments: Lot:[id number]:11/13Dose:1mlRoute:IMSite:l armGiven By:ELENAVIS signed Doris Melanie DO, Doris B 12 [...] 1000 mcg (J3420)By: On: 05-Dec-2015 Intent Fast DO Maggie A Comments: Lot:[id number]:12/13Dose:1mlRoute:IMSite:r arm Given By:SAADIA signed Echo CompleteBy: Fast DO, Maggie A On: 05-Dec-2015 Intent Radiology - Chest- PA and LatBy: On: 07-Sep-2015 Intent Fast DO, Maggie A B 12 Injection, 1000 mcg (J3420)By: On: 19-Aug-2015 Intent Fast DO Maggie A Comments: Lot:[id number]:04/14Dose:1mlRoute:IMSite:l armGiven By:SAADIA signed Aerosol Treatment ([id number])By: Fast On: 03-Aug-2015 Intent DO, Maggie A B 12 Injection, 1000 mcg (J3420)By: On: 17-May-2015 Intent Fast DO Maggie A Comments: Lot:[id number]:11/12Dose:1mlRoute:IMSite:l armGiven By:SAADIA signed Flu Vaccine (Quadrivalent) [id number]: On: 17-May-2015 Intent Fast DO Maggie A Comments: lot [id number]: 01/26/2016site/route L sol, IMamt 0.5mlVIS and ABN signed when applicableChelsea, CMAFM4 ADMINISTRATION OF INFLUENZA VIRUS On: 17-May-2015 Intent VACCINE (G0008)By: Maggie Tracey DO A B 12 Injection, 1000 mcg (J3420)By: On: 15-Feb-2015 Intent Kanika Georges Comments: Lot:[id number]:11.16Route:IMSite:R deltoidDose: 1 mLgiven by: Kanika Georges CMA DANIEL (Ankle Brachial Index) On: 08-Feb-2015 Intent ([id number])By: Maggie Tracey DO Radiology - Lumbar SpineBy: Alexy KEBEDE, On: 08-Feb-2015 Intent Maggie Armstrong Ultrasound - ThyroidBy: Alexy KEBEDE, On: 09-Nov-2014 Intent Maggie A B 12 Injection, 1000 mcg (J3420)By: On: 09-Nov-2014 Intent Camelia Tracey DOa A Comments: lot [id number] mcgleft dltdIMas, ELECTRO MECHANICAL TECHNOLOGIST Radiology - Chest- PA and LatBy: On: 13-Sep-2014 Intent Alexy KEBEDE Maggie A Comments: call stat Pulse Oximetry ([id number])By: Alexy KEBEDE, On: 13-Sep-2014 Intent Maggie A Comments: 97% Inhaler Demonstration ([id number])By: On: 07-Sep-2014 Intent Kimberley Loyd CNP Radiology - Chest- PA and LatBy: On: 14-Jul-2014 Intent Alexy KEBEDE Maggie A Comments: call rsults Spirometry ([id number])By: Alexy KEBEDE, On: 14-Jul-2014 Intent Maggie A Comments: good effort and curve mild rest /obst Prevnar 13 ([id number])By: Alexy KEBEDE, On: 30-Jun-2014 Intent Maggie A Comments: lot [id number] 09/2015location L armroute imgiven by - msmithVIS and/or ABN signed MAMMOGRAM, SCREENING, BOTH BREAST On: 14-Apr-2014 Intent ([id number])By: Maggie Tracey DO A B 12 Injection, 1000 mcg (J3420)By: On: 14-Apr-2014 Intent Camelia Tracey DOa A Comments: Lot #:[id number] date:mount given:1mlRoute: IMSite given: left deltoidGiven by: HAY Zavala Cartoid DopplerBy: Alexy DO Maggie A On: 14-Apr-2014 Intent Eprescribed prescriptions (G8553)By: On: 07-Oct-2013 Intent Fast DO, Maggie A DXA, BONE DENSITY, AXIAL SKELETON On: 20-Jul-2013 Intent ([id number])By: Alexy KEBEDE Maggie A Comments: aug Pelvic and Breast, Medicare On: 20-Jul-2013 Intent (G0101)By: Alexy DOCameliaa A Cartoid DopplerBy: Fast DO, Maggie A On: 07-Jul-2013 Intent Eprescribed prescriptions (G8553)By: On: 07-Jul-2013 Intent Raiza Ortiz FLU VAC, SPLIT, >3 YEARS, INTRAMUSC On: 04-May-2013 Intent ([id number])By: Maritza Cantor Comments: lot [id number] 2014site/route L sol, IMamt 0.5mlVIS and ABN signed when applicableChelsea, [facility] ADMINISTRATION OF INFLUENZA VIRUS On: 04-May-2013 Intent VACCINE (G0008)By: Maritza Cantor Radiology - Hip - LeftBy: Alexy KEBEDE, On: 07-Apr-2013 Intent Maggie Armstrong Eprescribed prescriptions (G8553)By: On: 07-Apr-2013 Intent Raiza Ortiz Eprescribed prescriptions (G8553)By: On: 05-Jan-2013 Intent Raiza Ortiz Spirometry ([id number])By: Alexy KEBEDE, On: 01-Dec-2012 Intent Maggie A Comments: good effort and curve normal Radiology - Chest- PA and LatBy: On: 01-Dec-2012 Intent Alexy KEBEDE Maggie A Comments: stat call wet read Eprescribed prescriptions (G8553)By: On: 01-Dec-2012 Intent Raiza Ortiz Pulse Oximetry ([id number])By: Angel, On: 01-Dec-2012 Intent Raiza Comments: 98% Eprescribed prescriptions (G8553)By: On: 27-Nov-2012 Intent Melanie DO, Doris Melanie DO, Doris Melanie DO, Doris MAMMOGRAM, SCREENING, BOTH BREASTS On: 29-Sep-2012 Intent ([id number])By: Camelia Tracey DOa A EKG (29906)By: Raiza Ortiz On: 29-Sep-2012 Intent Comments: ekg- 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 axis and no acute st t wave changes Eprescribed prescriptions (G8553)By: On: 29-Sep-2012 Intent Raiza Ortiz Eprescribed prescriptions (G8553)By: On: 03-Sep-2012 Intent Raiza Ortiz Eprescribed prescriptions (G8553)By: On: 30-Jul-2012 Intent Raiza Ortiz B 12 Injection, 1000 mcg (J3420)By: On: 23-Jun-2012 Intent Maggie Tracey DO A Comments: Lot:[id number]:Dose:1mlRoute:IMSite:L armGiven By:SAADIA signed Eprescribed prescriptions (G8553)By: On: 23-Jun-2012 Intent Raiza Ortiz B 12 Injection, 1000 mcg (J3420)By: On: 25-Mar-2012 Intent Maricruz Rivera LPN Comments: Lot #[id number]-06/10Site-right deltoidDose-1 mlgiven by: Dani Rivera LPN Eprescribed prescriptions (G8553)By: On: 25-Mar-2012 Intent Maggie Tracey DO FLU VAC, SPLIT, >3 YEARS, INTRAMUSC On: 25-Mar-2012 Intent (53269)By: Patsy Leslie LPN Comments: Lot/Exp: [id number], 12/2011Given in L Dltd, IMPrefilled SyringeBy CARYN Garner ADMINISTRATION OF INFLUENZA VIRUS On: 25-Mar-2012 Intent VACCINE (G0008)By: Patsy Leslie LPN Echo CompleteBy: Alexy KEBEDE Maggie A On: 07-Dec-2011 Intent B 12 Injection, 1000 mcg (J3420)By: On: 07-Dec-2011 [address] - OtherBy: Alexy DO Maggie A On: 03-Oct-2011 Intent Comments: get cta of carotid arteries TDAP VACCINE >7 IM ([id number])By: On: 03-Oct-2011 Intent Raiza Ortiz B 12 Injection, 1000 mcg (J3420)By: On: 07-Sep-2011 Intent Raiza Ortiz Comments: Lot #[id number]-/Site-left deltoidDose-1 mlgiven by: Dani Rivera LPN Cartoid DopplerBy: Maggie Tracey DO On: 07-Sep-2011 Intent Comments: in september DXA, BONE DENSITY, AXIAL SKELETON On: 07-Sep-2011 Intent ([id number])By: Maggie Tracey DO MAMMOGRAM, SCREENING, BOTH BREASTS On: 07-Sep-2011 Intent ([id number])By: Maggie Tracey DO Aerosol Treatment (57203)By: Ciesa On: 08-Aug-2011 Intent COMMERCIAL SINGER, Kimberley Poe EKG (97236)By: Raiza Ortiz On: 06-Jun-2011 Intent Comments: ekg showed normal sinus rhythym, left axis, no acute st/t wave changes DXA, BONE DENSITY, AXIAL SKELETON On: 06-Jun-2011 Intent ([id number])By: Maggie Tracey DO FLU VAC, SPLIT, >3 YEARS, INTRAMUSC On: 11-May-2011 Intent ([id number])By: Maricruz Rivera LPN Comments: Lot #[id number]-02/20/Site-left deltoidgiven by: Dani Rivera LPN B 12 [...] OtherBy: Alexy KEBEDE, On: 24-Jan-2011 Intent Maggie Armsrtong Comments: stat right leg- call wet read [...] PNEUM VAC ADLT/IMUMNOSPR, SBC/INTRM On: 03-Jul-2010 Intent (38734)By: Maggie Tracey DO Comments: Lot #[id number]-/10/07Site-left deltoidDose- 0.5mlgiven by:[facility] ADMINISTRATION OF PNEUMOCOCCAL On: 03-Jul-2010 Intent VACCINE (G0009)By: Maggie Tracey DO MAMMOGRAM, SCREENING, BOTH BREASTS On: 03-Jul-2010 Intent ([id number])By: Maggie Tracey DO B 12 Injection, 1000 mcg (J3420)By: On: 20-Jun-2010 Intent Maggie Tracey DO Comments: Lot #[id number]-12/07Site-left deltoidDose-1 mlgiven by:[facility] B 12 Injection, 1000 mcg (J3420)By: On: 10-May-2010 Intent Apoorva Calle Comments: Lot:[id number]:12/07Dose:1000mcg/1mlRoute:IMSite:right deltoid Given by: HAY Birch FLU VAC, SPLIT, >3 YEARS, INTRAMUSC On: 10-May-2010 Intent (58049)By: Apoorva Calle Comments: Lot:[id number] 4PExp:4/2011Dose:0.5mlRoute:IMSite:Left Deltoid Given by: HAY Birch ADMINISTRATION OF INFLUENZA VIRUS On: 10-May-2010 Intent VACCINE (G0008)By: Apoorva Calle Doppler Ultrasound OtherBy: Alexy KEBEDE, On: 12-Apr-2010 Intent Maggie Armstrong Comments: both legs stat- left leg swelling- call wet read Spirometry ([id number])By: Alexy KEBEDE, On: 12-Apr-2010 Intent Maggie A Comments: good effort and curve normal B 12 Injection, 1000 mcg (J3420)By: On: 05-Apr-2010 Intent Maggie Tracey DO Ultrasound - GallbladderBy: Alexy KEBEDE, On: 01-Feb-2010 Intent Maggie A IV Needle placement (46821)By: On: 10-Jan-2010 Intent Ana Guzman Comments: IV 22 gauge inserted in right antecubital on first attempt and 0.9 NSS running without difficulty-AW INFUSION, NORMAL SALINE SOLUTION , On: 10-Jan-2010 Intent 1000 CC (Special Coverage Instructions Apply. See MCM: 2049) (J7030)By: Kimberley Loyd CNP THER/PROPH/DIAG INJ, SC/IM On: 10-Jan-2010 Intent ([id number])By: Kimberley Loyd CNP Radiology - Knee - Right - Weight On: 03-Jan-2010 Intent BearingBy: Maggie Tracey DO EKG (31143)By: Raiza Ortiz On: 03-Jan-2010 Intent Comments: ekg showed normal sinus rhythym, left axis, no acute st/t wave changes Aerosol Treatment ([id number])By: Evert On: 19-Oct-2009 Intent Kimberley LOVE Cartoid DopplerBy: Maggie Tracey DO On: 14-Jun-[address] - Brain/HeadBy: Maggie Tracey DO On: 06-Jun-2009 Intent MAMMOGRAM, SCREENING, BOTH BREASTS On: 06-Jun-2009 Intent ([id number])By: Maggie Tracey DO DXA, BONE DENSITY, AXIAL SKELETON On: 06-Jun-2009 Intent ([id number])By: Maggie Tracey DO FLU VAC, SPLIT, >3 YEARS, INTRAMUSC On: 12-May-2009 Intent ([id number])By: Maricruz Rivera LPN Comments: Lot #[id number]-left deltoidgiven by:[facility] ADMINISTRATION OF INFLUENZA VIRUS On: 12-May-2009 Intent VACCINE (G0008)By: Maricruz Rivera LPN Radiology - Hand - RightBy: Alexy KEBEDE, On: 26-Jan-2009 Intent Maggie Armstrong Radiology - Wrist - RightBy: Fast On: 26-Jan-2009 Intent DO Maggie A Comments: call wet read Pulse Oximetry (12995)By: Alexy KEBEDE, On: 27-Dec-2008 Intent Maggie A Comments: 98 Inhaler Demo (10302)By: Alexy KEBEDE, On: 27-Dec-2008 Intent Maggie A Spirometry ([id number])By: Alexy KEBEDE, On: 27-Dec-2008 Intent Maggie A Comments: good effort and curve has small airways diminished Radiology - Chest- PA and LatBy: On: 27-Dec-2008 Intent Alexy KEBEDE Maggie A Echo CompleteBy: Alexy KEBEDE Maggie A On: 08-Nov-2008 Intent Comments: elevated bp - increase patricia EKG (53125)By: Camelia Tracey DOa A On: 08-Nov-2008 Intent Comments: ekg showed normal sinus rhythym, leftl axis, no acute st/t wave changes rsr unchanged Bio Z ([id number])By: Maggie Tracey DO A On: 08-Nov-2008 Intent Inhaler Demo (16486)By: Melanie KEBEDE, On: 02-Sep-2008 Intent Doris Jay DO, DO, Kathleen Aerosol Treatment (44076)By: Melanie On: 02-Sep-2008 Intent Doris KEBEDE DO, Kathleen Comments: less echoey -- better less cough Doris Navarro DO EKG ([id number])By: Doris Navarro DO On: 16-Dec-2007 Intent Doris Navarro DO, DO, Comments: NSR NO ACUTE CHANGES Doris B 12 Injection, 1000 mcg (J3420)By: On: 13-Nov-2007 Intent Thelma Khan LPN Comments: 1000mcg/ml 1 ml given im lt dltd lot [id number] exp 07-06. Pt tolerated well. B 12 Injection, 1000 mcg (J3420)By: On: 30-Jul-2007 Intent Melanie DO, Doris Melanie DO, Doris Melanie DO, Doris EXCISION BGN LSN TRNK/ARM/LEG On: 09-Jul-2007 Intent 0.6-1.0 CM (70294)By: Kimberley Loyd CNP BIOPSY OF SKIN LESION, SINGLE On: 09-Jul-2007 Intent (73028)By: Kimberley Loyd CNP SHAVE SKIN LESION, TRUNK/ARM/LEG On: 02-Jul-2007 Intent (41340)By: Kimberley Loyd CNP BIOPSY OF SKIN LESION, SINGLE On: 02-Jul-2007 Intent ([id number])By: Kimberley Loyd CNP B 12 Injection, 1000 mcg (J3420)By: On: 02-Jul-2007 Intent Jesus RUBIN, Lashonda FLU VAC, SPLIT, >3 YEARS, INTRAMUSC On: 04-Jun-2007 Intent (44023)By: Jing Cabello RN Comments: Lot #: [id number] date: 01/03Amount given: 0.5 MLRoute: IMSite given: Left deltoidGiven by: Nathaniel Beal LPN IMMUNIZ ADMNIN, 1 VAC, SNGL/COMBO On: 04-Jun-2007 Intent ([id number])By: Jing Cabello RN B 12 Injection, 1000 mcg (J3420)By: On: 04-Jun-2007 Intent Jing Cabello RN 12 Injection, 1000 mcg (J3420)By: On: 01-May-2007 [...] OF B12 PT COMING IN TOMORROW Doris Navarro DO, Doris B 12 Injection, 1000 mcg [...] DO, Doris Melanie DO, Doris IV Infusion ([id number])By: Melanie KEBEDE, On: 18-Oct-2006 Intent Doris Melanie DO, Doris Melanie DO, Doris EKG (08749)By: Doris Navarro DO On: 10-Oct-2006 Intent Melanie DO, Doris Melanie [...] 1000 MCG/ML Injection Solution Ordered: 13-Apr-2016 Pending HomeroTalatha Vitamin B-12 1000 MCG/ML Injection Solution Ordered: [...] 1000 MCG/ML Injection Solution Ordered: 07-Dec-2011 Pending Patsy Leslie LPN Vitamin B-12 1000 MCG/ML Injection Solution Ordered: 25-Mar-2012 Pending Blanquitachan ELECTRO MECHANICAL TECHNOLOGISTMaricruz Armijo Vitamin B-12 1000 MCG/ML Injection Solution Ordered: 23-Jun-2012 Pending Fast DO, Maggie A Vitamin B-12 1000 MCG/ML Injection Solution Ordered: 14-Apr-2014 Pending Fast DO, Maggie A Vitamin B-12 1000 MCG/ML Injection Solution Ordered: 09-Nov-2014 Pending Fast DO, Maggie A Vitamin B-12 1000 MCG/ML Injection Solution Ordered: 15-Feb-2015 Pending Destini, Kanika Vitamin B-12 1000 MCG/ML Injection Solution [...] 1000 MCG/ML Injection Solution Ordered: 21-Nov-2017 Pending Melanie DO, Doris Melanie DO, Doris [...] The patient does have durable power of family law attorney and living will. Other providers contributing to the patient's care are other:., [ADDITIONAL REASON] Follow up for chronic medical issues - The patient feels well with minor complaints, has decreased energy level and is sleeping well. Current medication use: no side effects. Patien t sleeps 7 hours per night. Nutrition: balanced [...] 13 steps at home. I was at [facility] for 3 days in ICU I broke [...] the patient is following up for inc jamilahe All identified problems below, blood sugar issues, [...] The patient does have durable power of family law attorney and living will. The patient has noticed [...] and she off pravastatin and went to [place] and now on 5 mg of crestor- and tolerated she got leg pain and weakness on pravachol- - she got good [facility] on stroke and vascular in [place]- --bp is good and cough gone and [...] ache and sharp, stab End: 08-Feb-2015 21:11 kuanl pain and are mild to moderate in [...] fever no productive ??cough- just alot of mireya- says cant use proair due to drainage [...] bracelet or put handrails in bathroom. The susan sims has completed the following preventative measures: PAP smear (2011), mammography (2013) and colonoscopy (unsure of timing). The patient does have durable power of family law attorney and living will. The damián ent has [...] since going to the urgent care at [facility]- on atb yet but will finish it [...] feels good- bp is great- went to [facility] for vascular check and said ok- no [...] stroke sx mood controlled has followup in [facility] for vascular issues soon- no chest [...] The patient does have durable power of family law attorney and living will. The patient has noticed [...] not home- no gerd - went to [place] for artery checks and doing ok there- [...] care visit: [facility] .-she is [...] laboratory test results: she went back to [facility] Saw Dr Shruthi Quinones- ??head of stroke- [...] ER visit: note: (stroke she was at [facility] x 5days released on saturday05/22/12 to 05/27/12). The patient feels well with minor complaints, has decreased energy End: 29-May-2012 14:12 level and is sleeping well. Patient has been compliant with instructions. Current medication use: compliant with dosing regimen. Patient sleeps 7 hours per night. Nutrition: balanced diet and supplement al vitamins. Note for Follow up hospital: [facility] Diagnosis: CVA (434.91), Benign essential hypertension (401.1), Diabetes type II,controlled no comp (250.00), Hypothyroidism (244.9), Carotid stenosis (433.10) [facility] Office Visit On: 22-May-2012 10:33 Encounter Reason: Follow up hospital - Reason for ER visit: note: (TIA. ??Patient was seen by [facility] ER x 3 times last week and then sent to [facility] for psych eval.). 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 Current medi End: 17-Mar-2008 17:32 cation use: no side [...]
--- OUTSIDE RECORDS SUMMARY | 2018-08-20 04:06 | XMS RPT_ITS | Continuity of Care Document ---
:1940 Author Organization [facility] Address [address] [place] [address] Phone Care Team Providers Name Role Phone Doris Navarro DO Unavailable Camacho Serrano Unavailable Flakito Morales Unavailable [facility], [facility] Unavailable Marcello Stein Unavailable Sal [...] artery stenosis (I65.23, 433.10) Comments: goes to [facility] yearly to follow Status: Active BMI [...] related to fatty liver -- did nutrition personnel counselor and wt loss / metformin and [...] Start : 26-Sep-2016 End : 12-Dec-2017 Inactive [place] 5-325 MG Oral Tablet 1 q 4hrs [...] Refills: 4 Ordered:13-Feb-2018 Arnold Navarro DO, DO, oDris Barrett DO Start : 13-Feb-2018 End : [...] : 07-Sep-2014 End : 13-Sep-2014 Discontinued ERGOCALCIFEROL, 25567TXXG (Oral Capsule) 1 (one) Capsule q week [...] End : 23-Jun-2012 Discontinued VITAMIN D (ERGOCALCIFEROL), 62641LYZG (Oral Capsule) 1 Capsule q week for 0 days Quantity: 12 {Capsule} Refills: 2 Ordered:19-Aug-2015 Raiza Ortiz Start : 07-Apr-2013 End : 19-Aug-2015 Discontinued VITAMIN D, 45832XBIC (Oral Capsule) 1 (one) Capsule q week [...] Department Summary Result: Comments: See Note; NOTES: [facility] Medical Records Department [address] [place] [address] Emergency Department Summary 05/14/18 0908 MR#: [id number] Acct: [id number] Name: MARICRUZ GRIGSBY Rep #: [id number] : 1940 78 From: Zee Denise MD [...] family doctors she is re ferred to [facility] for the shoulder injury and she will return for change in symptoms and she is comfortable with this plan Treatment Plan: [] Disposition: [] Stable home Impression: [] Fall left rib fracture, left shoulder injury This note was generated with Quixhopation software. It may contain incorrect words, spelling, [...] your Primary Care Provider. Call [facility] ([phone]) or report to the closest Emergency Room. Call 911 if necessary. 05/14/18 1530 <Electronically signed by Zee Denise MD> Date Zee Denise MD Cosigner Signatur e (If Indicated): Date CC: Doris Navarro DO 14-May-2018 Discharge Instruction Result: Comments: See Note; NOTES: [facility] Medical Records Department [address] [place] [address] Discharge Instruction 05/14/18 1133 MR#: [id number] Acct: [id number] Name: CLIFFORD HOBBSMARICRUZ THORNE Rep #: [id number] : 1940 78 From: Zee Denise MD PCP: Doris Navarro DO Status: REG ER ED Disposition - Plan for ED Patient: Chief Complaint: Fall Instructions: ED M echanical Fall, ED Fx Rib, ED Sprain Shoulder, ED Sling Prescriptions: Hydrocodone Bitart/Apap 5-325 [[place] 5MG-325MG] 1 tab PO Q6H PRN PRN 3 Days #10 tab PRN Reason: Pain Referrals: Doris Navarro DO [Primary Care Provider] - What to do if you have Problems For any increased pain, shortness of breath, bleeding, nausea or vomiting, chest pain, or any unexpected problems, contact your Primary Car e Provider. Call [facility] ([phone]) or report to the closest Emergency Room. Call 911 if necessary. 05/14/18 1134 <Electronically signed by Zee Denise MD> Date ___ Zee Denise MD Cosigner Signature (If Indicated): Date CC: Doris Navarro DO 14-May-2018 Chest PA and Lateral Result: Comments: See Note; NOTES: [facility] Imaging Services [address] [place] [address] Chest PA and Lateral MR#: [id number] Acct: [id number] Name: MARICRUZ GRIGSBY Rep #: [id number] : 1940 F 78 From: Teo Wayne MD PCP: Doris Navarro DO Status: REG ER Study: Chest PA and Lateral Date of Exam: 05/14/18 Exam# [id number] Ordering Dr: Zee Denise MD STUDY: X-RAY [...] Teo Wayne MD at 10:11 EDT Tel [phone], 1Ring support , CC: MD Sonam Denise; Doris Navarro DO Used Car Sales Manager: Signed 14-May-2018 Elbow min 3 Views Result: Comments: See Note; NOTES: [facility] Imaging Services [address] [place] [address] Elbow min 3 Views MR#: [id number] Acct: [id number] Name: MARICRUZ GRIGSBY Rep #: [id number] : 1940 F 78 From: Teo Wayne MD PCP: Doris Navarro DO Status: [facility] Study: Elbow min 3 Views Date of Exam: 05/14/18 Exam# [id number] Ordering Dr: Zee Denise MD STUD Y: [...] Teo Wayne MD at 10:12 EDT Tel [phone], Service support , CC: MD Sonam Denise; Doris Navarro DO Used Car Sales Manager: Signed 14-May-2018 Shoulder min 2 Views Result: Comments: See Note; NOTES: [facility] Imaging Services [address] [place] [address] Shoulder min 2 Views MR#: [id number] Acct: [id number] Name: MARICRUZ GRIGSBY Rep #: [id number] : 1940 F 78 From: Teo Wayne MD PCP: Doris Navarro DO Status: REG ER Study: Shoulder min 2 Views Date of Exam: 05/14/18 Exam# [id number] Ordering Dr: Zee Denise MD STUDY: X-RAY [...] Wayne MD at 11:02 EDT Tel [phone], Service support , CC: MD Sonam Denise; Doris Navarro DO Used Car Sales Manager: Signed 06-Feb-2018 History and Physical Exam Result: Comments: See Note; NOTES: [facility] Medical Records Department [address] [place] [address] History and Physical 02/06/182050 MR#: [id number] Acct: [id number] Name: MARICRUZ GRIGSBY Rep #: [id number] : 1940 77 From: María Barnes MD [...] cholecystectomy Psychiatric History: No pertinent psych hx PATTERN RULER History: No pertinent PATTERN RULER history Lives: Spouse/ Significant Other Smoking Status: [...] sinus findings as above. Electronically Signed: Renata eLe MD at 19:29 EDT , Service support [...] Subcu heparin. This note was generated with Renovar software. It may contain incorrect words, spelling, and punctuation that were not noted in checking the note before signing. Code Visit OBSV E AND M: 16157 Initial observation care L3 07/12/08 05 2108 <Electronically signed by María Barnes MD> Date María Barnes MD Cosigner Signature: Date (if applicable) CC: María Barnes; Doris Navarro DO Signed 06-Feb-2018 Brain/Head without Contrast Result: Comments: See Note; NOTES: [facility] Imaging Services [address] [place] [address] Brain/Head without Contrast MR#: [id number] Acct: [id number] Name: MARICRUZ GRIGSBY Rep #: [id number] : 1940 F 77 From: Renata Lee MD PCP: Doris Navarro DO Status: REG Study: Brain/Head without Contrast Date of Exam: 02/06/18 Exam# [id number] Ordering Dr: Cameron Marte MD STUDY: CT [...] , CC: Doris Navarro DO; Jered Marte Used Car Sales Manager: Signed 06-Feb-2018 Chest 1 View Result: Comments: See Note; NOTES: [facility] Imaging Services [address] [place] [address] Chest 1 View MR#: [id number] Acct: [id number] Name: MARICRUZ GRIGSBY Rep #: [id number] : 1940 F 77 From: Renata Lee MD PCP: Doris Navarro DO Status: [facility] ER Study: Chest 1 View Date of Exam: 02/06/18 Exam# [id number] Ordering Dr: Jered Marte MD STUDY: X-RAY [...] , CC: Doris Navarro DO; Jered Marte Used Car Sales Manager: Signed 25-Nov-2017 Liver Result: Comments: See Note; NOTES: [facility] Imaging Services [address] [place] [address] Liver MR#: [id number] Acct: [id number] Name: MARICRUZ GRIGSBY Stuart Rep #: [id number] : 1940 F 77 From: Mack Hand MD PCP: Doris Navarro DO Status: REG CLI Study: Liver Date of Exam: 11/25/17 Exam# [id number] Ordering Dr: Doris Navarro DO STUDY: ABDOMINAL [...] MD at 12:34 EDT , Service support [phone], CC: Doris Navarro DO Used Car Sales Manager: Signed 29-Oct-2017 Hip 2-3 Views with Pelvis Result: Comments: See Note; NOTES: [facility] Imaging Services [address] [place] [address] Hip 2-3 Views with Pelvis MR#: [id number] Acct: [id number] Name: MARICRUZ GRIGSBY #: [id number] : 1940 F 77 From: Benji Finch PCP: Doris Navarro DO Status: REG CLI Study: Hip 2-3 Views with Pelvis Date of Exam: 10/29/17 Exam# [id number] Ordering Dr: Thelma Sofia [employer]- C STUDY: X-RAY - PELVIS AND LEFT [...] , CC: QUINN Sofia; Doris Navarro DO Used Car Sales Manager: Signed 27-Aug-2017 12 Lead Electrocardiogram Result: Comments: See Note; NOTES: [facility] Cardiovascular Services [address] [place] [address] 12 Lead EKG 08/24/17 1719 MR#: [id number] Acct: [id number] Name: PORTIA GRIGSBY Rep #: [id number] : 1940 77 From: Maurilio Meraz MD [...] C onfirmed by SOLEDAD STREETER, MAURILIO ([id number]), content editor STACY CARTER ([id number]) on 08/27/2017 10:37:34 AM Referred By: EITAN Confirmed By:MAURILIO MERAZ MD 08/27/17 1037 Date Maurilio Meraz MD CC: Doris Melanie KEBEDE Signed 25-Aug-2017 Emergency Department Summary Result: Comments: See Note; NOTES: [facility] Medical Records Department [address] [place] [address] Emergency Department Summary 08/24/17 1709 MR#: [id number] Acct: [id number] Name: MARICRUZ GRIGSBY Rep #: [id number] : 1940 77 From: Zee Denise MD [...] at home. She has no history of MA PE or DVT she does have history [...] be altered This note was generated with WorldRemit dictation software. It may contain incorrect words, [...] your Primary Care Provider. Call [facility] ([phone]) or report to the closest Emergency Room. Call 911 if necessary. 08/25/17 0001 <Electronically sig radha by Zee Denise MD> Date Zee Denise MD Cosigner Signature (If Indicated): Date CC: Doris Navarro DO 24-Aug-2017 Discharge Instruction Result: Comments: See Note; NOTES: [facility] Medical Records Department [address] [place] [address] Discharge Instruction 08/24/17 1820 MR#: [id number] Acct: [id number] Name: MARICRUZ GRIGSBY Rep #: [id number] : 1940 77 From: Zee Denise MD [...] problems, contact your Primary Care Provider. Call [facility] ([phone]) or report to the closest [facility] Room. Call 911 if necessary. 08/24/17 1821 <Electronically signed by Zee Denise MD> Date Zee Denise MD Cosign er Signature (If Indicated): Date CC: Doris Navarro DO 24-Aug-2017 Chest PA and Lateral Result: Comments: See Note; NOTES: [facility] Imaging Services [address] [place] [address] Chest PA and Lateral MR#: [id number] Acct: [id number] Name: MARICRUZ GRIGSBY Staurt Rep #: [id number] : 1940 F 77 From: Stacy Tapia MD PCP: Doris Navarro DO Status: REG ER Study: Chest PA and Lateral Date of Exam: 08/24/17 Exam# [id number] Ordering Dr: Zee Denise MD XR Chest [...] CC: MD Sonam Denise; Doris Navarro DO Used Car Sales Manager: Signed 07-Aug-2017 Chest PA and Lateral Result: Comments: See Note; NOTES: [facility] Imaging Services [address] [place] [address] Chest PA and Lateral MR#: [id number] Acct: [id number] Name: CLIFFORD MARICRUZ CRUZ Rep #: [id number] : 1940 F 77 From: Teo Wayne MD PCP: Doris Navarro DO Status: REG CLI Study: Chest PA and Lateral Date of Exam: 08/07/17 Exam# [id number] Ordering Dr: Doris Navarro DO STUDY: X-RAY [...] Logan i, MD at 13:49 EST Tel [phone], Service support , CC: Doris Navarro DO Used Car Sales Manager: Signed 20-Nov-2016 Operative Report Result: Comments: See Note; NOTES: [facility] Medical Records Department [address] [place] [address] Operative Report 11/14/16 0736 MR#: [id number] Acct: [id number] Name: MARICRUZ BREAUX Rep #: [id number] : 1940 76 From: Liza Duron DO PCP: Doris Navarro DO Status: [facility] Y [place] [facility] [place] Report of Operation Date of Procedure: 11/14/16 Pre-Operative Diagnosi s: Right third and fourth trigger fingers Post-Operative Diagnosis: Name Surgery/Procedure Performed:: Right hand third and fourth A1 shannan release Type of Anesthesia:: Block,[place] Anesthesiologist: Fox Michaels Estimated Blood Loss (mL): [...] Dragon disclaimer This note was generated with [employer] dictation software. It may contain incorrect words, spellin g, and punctuation that were not noted in checking the note before signing. 11/20/16 1231 <Electronically signed by Liza Duron DO> Date Liza Duron DO CC: Liza Duron DO; Doris Navarro DO Signed 16-Nov-2016 Oncology Progress Note Result: Comments: See Note; NOTES: [facility] Medical Records Department [address] [address] Oncology Progress Note MR#: [id number] Acct: [id number] Name: PORTIA GRIGSBY Rep #: [id number] : 1940 76 From: Sal Urrutia MD [...] level. Sal Urrutia MD T: NTS JOB: [id number] 11/16/16 0850 <Electronically signed by Sal Urrutia MD> Date Sal Urrutia MD Cosigner Signature (If Indicated): Date CC: Date Dictated: 11/08/16 1305 Date Transcribed: 11/08/16 1305 Used Car Sales Manager: Signed 14-Nov-2016 Discharge Instruction Result: Comments: See Note; NOTES: [facility] Medical Records Department [address] [place] [address] Instructions for Home/Discharge Instructions 11/14/16 0735 MR#: [id number] Acct: [id number] Name: MARICRUZ GRIGSBY Rep #: [id number] : 1940 76 From: Liza Duron DO [...] mg PO DAILY 11/09/16 Hydrocodone Bitart/Apap 5-325 [[place] 5MG- 325MG] 1 - 2 tablet PO Q6H PRN PRN #20 tablet 11/14/16 The following prescriptions were given: Hydrocodone Bitart/Apap 5- 325 [[place] 5MG-325MG] 1 - 2 tablet PO Q6H PRN PRN #20 tablet PRN Reason: Pain Primary Care Physician: Doris Navarro DO [Primary Care Provider] - Please Follow Up With: Liza Duron [phone] 11/14/16 0736 <Electronically signed by Liza Duron DO> Date Liza Duron DO CC: Doris Navarro DO 20-Jul-2016 Chest PA and Lateral Result: Comments: See Note; NOTES: [facility] Imaging Services [address] [place] [address] Verdana 4d Chest PA and Lateral MR#: [id number] Acct: [id number] Name: JAQUAN GRIGSBY Rep #: [id number] : 1940 F 76 From: Mack Hand MD PCP: Doris Navarro DO Status: REG CLI Study: Chest PA and Lateral Date of Exam: 07/20/16 Exam# [id number] Ordering Dr: Doris Navarro DO STUDY: X-RAY [...] at 12:24 EST Tel , Service support [phone], CC: Doris Navarro DO Used Car Sales Manager: Signed 26-Jan-2016 Echocardiogram Complete Result: Comments: See Note; NOTES: [facility] Cardiovascular Services [address] [place] [address] Echo Complete 01/26/16 1008 MR#: [id number] Acct: [id number] Name: MARICRUZ PARMAR Rep #: [id number] : 1940 75 From: Mack Dickerson MD Attending Dr: Maggie Tracey DO Status: REG CLI Ordering Dr: Maggie Tracey DO Date: 01/26/16 Location: [facility] Sex: F C Admitt ed: Reason [...] Physician: Maggie Tracey Performed By: Sharyn Bear [facility] 01/26/161611 Date ___ Mack Dickerson MD CC: Maggie Tracey DO Date Dictated: 01/26/16 1008 Date Transcribed: 01/26/161611 Used Car Sales Manager: Signed 05-Dec-2015 Chest 1 View (Portable) Result: Comments: See Note; NOTES: [facility] Imaging Services [address] [place] [address] Verdana 4d Chest 1 View (Portable) MR#: [id number] Acct: [id number] Name: MARICRUZ PEÑALOZA Rep #: [id number] : 1940 F 75 From: Yari Garcia MD PCP: Maggie Tracey DO Status: PRE ER Study: Chest 1 View (Portable) Date of Exam: 12/05/15 Exam# [id number] Ordering Dr: Johnnie Baez MD STUDY: X-RAY [...] lungs. Mild to moderate cardiomegaly. Electronically Signed: Yrai Garcia MD at 16:44 EDT Tel , Service support [phone], RAD/Chest 1 V iew (Portable) IMPRESSION: Underexpansion of the lungs. Mild to moderate cardiomegaly. Electronically Signed: Yari Garcia MD at 16:44 EDT Tel , Service support , CC: Maggie Tracey DO; Johnnie Baez MD Used Car Sales Manager: Signed 05-Dec-2015 Spirometry (93439) Comments: good effort and curvenormal Result: 05-Dec-2015 EKG (14526) Comments: ekg showed normal sinus rhythym, normal axis, no acute st/t wave changes Result: [MEASUREMENTS ANALYSIS] Date of Test: 12/05/2015 14:27:41; Heart Rate: 93; IL Interval: 202; QRS: 96; QT Interval: 352; Corrected QT Interval (QTc): 409; P Wave [place]: 48; QRS Wave [place]: -26; T Wave [place] : 55; Blood Pressure: 134/64 [ECG DIAGNOSTIC STATEMENTS] Date of Test: 12/05/2015 14:27:41; Summary: Sinus Rhythm WITHIN NORMAL LIMITS 21-Sep-2015 12 Lead Electrocardiogram Result: Comments: See Note; NOTES: [facility] Cardiovascular Services [address] [place] [address] 12 Lead EKG 09/19/15 0908 MR#: [id number] Acct: [id number] Name: MARICRUZ VIGIL Rep #: [id number] : 1940 75 From: Maurilio Meraz MD [...] wave progression Confirmed by SOLEDAD STREETER, MAURILIO ([id number]), content editor STACY CARTER (56) on 09/21/2015 11:27:40 AM Referred By: JE Confirmed By:MAURILIO MERAZ MD [id number] Date Maurilio Meraz MD CC: Maggie Tracey DO Date Dictated: 09/19/15907 Date Transcribed: 09/19/15907 Used Car Sales Manager: Signed 19-Sep-2015 Discharge Instruction Result: Comments: See Note; NOTES: [facility] Medical Records Department [address] [place] [address] Discharge Instruction 09/19/15 1020 MR#: [id number] Acct: [id number] Name: MARICRUZ GRIGSBY Rep #: [id number] : 1940 75 From: Johnnie Baez MD [...] chest pain, or any unexpected problems, contact [facility] doctor. Call [facility] ([phone]) or report to the closest Emergency Room. Call 911 if necessary. 09/19/15 1755 <Electronically signed by Johnnie Baez MD> Date __ Johnnie Baez MD Cosigner Signature (If Indicated): Date CC: Maggie Tracey DO 19-Sep-2015 Emergency Department Summary Result: Comments: See Note; NOTES: [facility] Medical Records Department [address] [place] [address] Emergency Department Summary MR#: [id number] Acct: [id number] Name: MARICRUZ GRIGSBY Rep #: [id number] : 1940 75 From: Johnnie Baez MD [...] tachycardia at 112. No acute signs of MA or ischemia. White count 11.4, H and [...] C: Maggie Tracey DO T: CHERI JOB: [id number] 09/19/15 9293 <Electronically signed by Johnnie Baez MD& amp;#62; Date Johnnie Baez MD Cosigner Signature (If Indicated): Date CC: Maggie Tracey DO Date Dictated: 09/19/15 1019 Date Transcribed: 09/19/151018 Used Car Sales Manager: Signed 07-Sep-2015 Chest PA and Lateral Result: Comments: See Note; NOTES: [facility] Imaging Services [address] [place] [address] Verdana 4d Chest PA and Lateral MR#: [id number] Acct: [id number] Name: MARICRUZ HADLEY Rep #: [id number] : 1940 F 75 From: Kali Raymundo MD PCP: Maggie Tracey DO Status: REG CLI Study: Chest PA and Lateral Date of Exam: 09/07/15 Exam# [id number] Ordering Dr: Maggie Irwin DO STUDY: X-RAY [...] FACR at 11:41 EST , Service support [phone], RAD/Chest PA and Lateral IMPRESSION: No significant changes. Stable moderate cardiomegaly. Bilateral interstitial changes more prominent on the right. Wanda velazquez Signed: Kali Raymundo MD, FACR at 11:41 EST , Service support [phone], CC: Maggie Tracey DO Used Car Sales Manager: Signed 07-Sep-2015 Spirometry (22340) Comments: good effort and curve normal Result: 24-Mar-2015 PT Discharge Summary Result: Comments: See Note; NOTES: [facility] [address] [place] [address] Fax REHABILITATION SERVICES DISCHARGE SUMMARY MR#: [id number] Acct: [id number] Name: MARICRUZ GRIGSBY Rep #: [id number] : 1940 75 From: Yuni Clark Referring [...] discharge. Yuni Clark, PT T: NTS JOB: [id number] <Electronically signed by Yuni Clark > 03/24/15 1227 CC: Maggie Tracey DO Signed 17-Feb-2015 Inital Evaluation - PT Result: Comments: See Note; NOTES: [facility] [address] [place] [address] Fax REHABILITATION SERVICES INITIAL EVALUATION MR#: [id number] Acct: [id number] Name: MARICRUZ GRIGSBY Rep #: [id number] : 1940 75 From: Yuni Clark Referring Dr.: Maggie Tracey DO Status: REG RCR Insurance : MEDICARE PART A B Eval Date: [facility] DATE OF SERVICE: 02/16/2015 SUBJECTIVE: This patient [...] care. Yuni Clark, PT T: NTS JOB: [id number] <Electronically signed by Yuni Clark > 02/17/15 1011 CC: Signed For Medicare only, by seng yao this I certify the plan of care. Physicians Signature Date 08-Feb-2015 L/S Spine Min 4 Views Result: Comments: See Note; NOTES: [facility] Imaging Services [address] [place] [address] Radiology Report MR#: [id number] Acct: [id number] Name: CLIFFORD HOBBSMARICRUZ THORNE Rep #: [id number] : 1940 F 74 From: Teo Wayne MD PCP: Maggie Tracey DO Status: REG CLI Study: L/S Spine Min 4 Views Date of Exam: 02/08/15 Exam# [id number] Ordering Dr: Maggie Tracey DO STUDY: X-RAY [...] Wayne MD a t 12:30 EDT Tel [phone], Service support [phone], RAD/L/S Spine Min 4 Views IMPRESSION: Degenerative changes of the spine, as detailed above. Electro nically Signed: Teo Wayne MD at 12:30 EDT Tel [phone], Service support [phone], CC: Maggie Tracey DO Used Car Sales Manager: Signed 15-Nov-2014 Thyroid Result: Comments: See Note; NOTES: [facility] Imaging Services [address] [place] [address] Ultrasound Report MR#: [id number] Acct: [id number] Name: MARICRUZ GRIGSBY Rep #: [id number] : 1940 F 74 From: Julián Trivedi DO PCP: Maggie Tracey DO Status: REG CLI Study: Thyroid Date of Exam: 11/15/14 Exam# [id number] Ordering Dr: Maggie Tracey DO STUDY: THYROID [...] Julián Trivedi DO at 16:51 EDT Tel [phone], Service support [phone], Fax CC: Maggie Tracey DO Used Car Sales Manager: Signed 13-Sep-2014 Chest PA and Lateral Result: Comments: See Note; NOTES: [facility] Imaging Services [address] [place] [address] Radiology Report MR#: [id number] Acct: [id number] Name: MARICRUZ GRIGSBY Rep #: [id number] : 1940 F 74 From: Donato Abdi MD PCP: Maggie Tracey DO Status: REG CLI Study: Chest PA and Lateral Date of Exam: 09/13/14 Exam# [id number] Ordering Dr: Maggie Tracey DO STUDY: X [...] at 12:01 EST Tel , Service support [phone], CC: Maggie Tracey DO Used Car Sales Manager: Signed 15-Jul-2014 Chest PA and Lateral Result: Comments: See Note; NOTES: [facility] Imaging Services [address] [place] [address] Radiology Report MR#: [id number] Acct: [id number] Name: CLIFFORD CRUZJAQUANMARICRUZ Rep #: [id number] : 1940 F 74 From: Teo Wayne MD PCP: Maggie Tracey DO Status: REG CLI Study: Chest PA and Lateral Date of Exam: 07/15/14 Exam# [id number] Ordering Dr: Maggie Tracey DO SANDI DY: [...] Teo Wayne MD at 9:42 EST Tel [phone], Service support [phone], CC: Maggie Tracey DO Used Car Sales Manager: Signed 10-May-2014 Bilat Scrn Digital & CAD Result: Comments: See Note; NOTES: [facility] Imaging Services [address] [place] [address] Breast Imaging Report MR#: [id number] Acct: [id number] Name: JOSE AMARICRUZ GIANG ep #: [id number] : 1940 F 74 From: Gene Phillips PCP: Maggie Tracey DO Status: REG CLI Exam# [id number] Ordering Dr: Maggie Tracey DO MAMMOGRAPHY - [...] these results will be sent to [facility] ient by the facility within 30 days. Approximately 10% of breast cancers are not detected by mammography. A normal mammogram should not delay biopsy of a clinically suspicious abnormality. Electro nically Signed: Jsesenia Phillips MD at 19:48 EDT Tel , Service support [phone], CC: Maggie Tracey DO Used Car Sales Manager: Signed 10-Sep-2013 Dexa Bone Density Study (HP) Result: Comments: See Note; NOTES: [facility] Imaging Services [address] [place] [address] Bone Density Report MR#: [id number] Acct: [id number] Name: MARICRUZ GRIGSBY Rep #: [id number] : 1940 F 73 From: Teo Wayne MD PCP: Maggie Tracey DO Status: REG CLI Study: Dexa Bone Density Study (HP) Date of Exam: 09/10/13 Exam# [id number] Ordering Dr: Maggie Tracey DO STUDY: DUAL [...] M.D. at 11:04 EST , Service support [phone], CC: Maggie Tracey DO Used Car Sales Manager: Signed Immunization Name Dates Details Influenza (3 years and up) on: 04-Jun-2007 Comments: Lot #: [id number] date: 01/03Amount given: 0.5 MLRoute: IMSite given: Left deltoidGiven by: Nathaniel Beal LPN Influenza (3 years and up) on: 12-May-2009 Comments: Lot #[id number]-left deltoidgiven by:CDH Family History Unknown Family Member Name Dates Details Cancer Status: Active Diabetes Mellitus Status: Active Father Comments: MA, hypercholesterolemia Status: Active First Degree Relatives Comments: [...] kg/m2 Body Surface Area Calculated 2.06 m2 34-Ldu-287948:15 Pulse 81 /min Comments: Pattern: Regular Respiration [...] kg/m2 Body Surface Area Calculated 2.06 m2 20-Hzf-237087:32 Temperature 97.6 f Comments: Method: Temporal Pulse [...] kg/m2 Body Surface Area Calculated 2.06 m2 3-Otx-361671:26 Comments: orthostatic bp assessment: 12:10pmlying- 170/90 76hrsitting- [...] administered 81mg asa orally at this time also-[facility] BP Systolic 156 mm[Hg] Comments: Patient [...] Value Details :50 Rapid Strep Test, Office (08160) Rapid Strep Test, Office Negative (Normal) :58 TSH (89490) Comments: PATIENT NOT FASTINGPERFORMED BY: BVfon TelecommunicationHelen [facility]berry [facility] Hospital6370 [facility] [id number] TSH 5.590 {uIU/mL} (Abnormal) Range: 0.450-4.500 :58 T4, FREE (THYROXINE) (95901) Comments: PATIENT NOT FASTINGPERFORMED BY: Stealth TherapeuticsEast Orange VA Medical CenterWbwcjg3803 [facility] [id number] T4,Free(Direct) 1.81 ng/dL (Abnormal) Range: 0.82-1.77 :58 T3, FREE (TRIDOTHYRONINE) (15439) Comments: PATIENT NOT FASTINGPERFORMED BY: BVfon TelecommunicationHelen [facility]berry [facility] Hospital6370 [facility] [id number] Triiodothyronine (T3), Free 2.1 pg/mL (Normal) Range: [...] Muscle ABS Comments: Comments: ANTI-LIVER/KIDNEY MICRO AB [id number] SER/[facility] (refer to report for specific site)refer [...] MELI-DIRECT Negative (Normal) Comments: Performed at: - [facility] [id number] Director: Constantine Christianson PhD, Phone: [phone] Ceruloplasmin Comments: Comments: ANTI-LIVER/KIDNEY MICRO AB [id number] [facility] (refer to report for specific site)refer to report for address and phone number CERULOPLAS 1560 22.0 mg/dL (Normal) Range: 19.0-39.0 :44 CMV Acute Antibody IgM Comments: Comments: ANTI-LIVER/KIDNEY MICRO AB [id number] [facility] (refer to report for specific site)refer to report for address and phone number CMVIgM AB < 30.0 AU/mL (Normal) Range: 0.0-29.9 Comments: Negative <30.0 Equivocal 30.0 - 34.9 Positive >34.9A positive result is generally indicative of acuteinfection, reactivation or persistent IgM production. :44 Ferritin Comments: Comments: ANTI-LIVER/KIDNEY MICRO AB [id number] SER/[facility] [address]xvv7055 [place], [address] FERRITIN 236 ng/mL (Normal) Range: 8-252 :44 Free T3 Comments: Comments: ANTI-LIVER/KIDNEY MICRO AB [id number] SER/[facility] Kdfvnggfcz0588 [place], [address] FREE T3 1.6 pg/mL (Abnormal) Range: 2.18-3.98 :44 GGTP 64 U/L (Abnormal) Comments: Comments: ANTI-LIVER/KIDNEY MICRO AB [id number] SER/[facility] [address]fpgmjdj[address] [place], [address] Range: 5-55 :44 Hepatitis Panel Acute Comments: Comments: ANTI-LIVER/KIDNEY MICRO AB [id number] [facility] (refer to report for specific site)refer to report for address and phone number HEP C AB <0.1 {s/co_ratio} (Normal) Range: 0.0-0.9 Comments: Negative: < 0.8 Indeterminate: 0.8 - 0.9 Positive: > 0.9 The CDC recommends that a positive HCV antibody result be followed up with a HCV Nucleic Acid Amplification test (590757). HB CORE [id number] Negative (Normal) HB SURF AG Negative (Normal) HEP A IgM 6734 Negative (Normal) :44 Liver Profile Comments: Comments: ANTI-LIVER/KIDNEY MICRO AB [id number] SER/[facility] Azrrpqeuac[address] [place], [address] D BILI 0.17 mg/dL (Normal) Range: 0.00-0.30 T BILI 0.60 mg/dL (Normal) Range: 0.20-1.00 ALT 48 U/L (Normal) Range: 13-56 ALK P 93 U/L (Normal) Range: 45-117 AST 43 U/L (Abnormal) Range: 15-37 GLOB 3.5 g/dL (Normal) Range: 2.2-4.2 ALB 3.7 g/dL (Normal) Range: 3.2-5.0 T PROT 7.2 g/dL (Normal) Range: 6.4-8.2 :44 Miscellaneous Lab Procedure Comments: Comments: ANTI-LIVER/KIDNEY MICRO AB [id number] SER/RFTest(s) Ordered: ANTI-LIVER/KIDNEY MICROS AB [id number] SER/[facility] [address]vhjippptw80[address] [place], [address] MISC Comments: TEST RESULT UNITS REF INTERVALLiver- Kidney Microsomal Ab <1.0 Units 0.0 - 20.0 Negative 0.0 - 20.0 LAB (Normal) Equivocal 20.1 - 24.9 Positive >24.9LKM type 1 antibodies are detected in patients withautoimmune hepatitis type 2 and in up to 8% ofpatients wi TEST th chronic HCV infection. TEST[facility]FOR[facility] AT [facility]. ORIGINAL REPORT ON FILE IN LAB CONTAINS ADDITIONAL TEST SITE INFORMATION. :44 T4 Free Direct Comments: Comments: ANTI-LIVER/KIDNEY MICRO AB [id number] SER/[facility] C[address] [place] [address], [id number] T4 FREE DIRECT 1.06 ng/dL (Normal) Range: 0.76-1.46 :44 Thyroid Stim Hormone (TSH) Comments: Comments: ANTI-LIVER/KIDNEY MICRO AB [id number] [facility] Luluqbyksl8043 [facility] [place], [address] TSH 16.40 {uIU/mL} (Abnormal) Range: 0.358-3.74 :44 Transferrin Comments: Comments: ANTI-LIVER/KIDNEY MICRO AB [id number] [facility] (refer to report for specific site)refer to report for address and phone number TRANSFERRN 4558 250 mg/dL (Normal) Range: 200-370 Comments: Performed at: [address] [id number] Director: Constantine Christianson PhD, Phone: [phone] 06-Ynd-490921:16 Bedside Glucose Comments: [facility] LaboratoryPoint of [address] 6[address] BEDSIDE GLU 152 mg/dL (Abnormal) Range: 70-110 Comments: MANAGEMENT OF PATIENT CARE PER NURSING PROTOCOL 56-Bzk-100927:45 Basic Metabolic Profile (BMP) Comments: [facility] [address] [place], [place], [id number] GAP 8 (Normal) Range: 5-15 CO2 28.0 [...] A.D.A. criteria.Please note revised GLUCOSE reference range fwvtegbex26/02/2018. 31-Url-231351:45 CBC W/Diff, Automated Comments: [facility] Lntahoeopq[address] [place], [place], [address] Absolute Lymph 1.73 {X10_3/ul} (Normal) Range: 0.83-4.51 [...] 4.2-5.4 WBC 9.5 K/mm3 (Normal) Range: 4.4-11.0 31-Cgb-851261:45 Partial Thromboplast Time Comments: [facility] Yibdfsvhku5446 [facility] [place], [address] PTT 33.0 s (Normal) Range: 24.1-36.2 67-Wuy-326708:45 Prothrombin Time w/INR Comments: [facility] Dwodqqtpny[address] [facility] [place], [address] INR 0.9 (Normal) PROTIME 12.5 s (Normal) Range: 11.7-14.9 74-Hzx-439366:45 Troponin-I Comments: [facility] Z[address]ckrpyv[address] [facility] [place], [address] TROPONIN-I < 0.015 ng/mL Comments: TROPONIN-I EXPECTED VALUES <0.045 Negative 0.045 - 0.590 Consistent with Cardiac Damage > OR = 0.600 Critical Value Not every elevated troponin is indicative of MA. T (Normal) hesevalues should be used with clinical judgement in examiningthe patient's clinical picture for diagnosis. To establisha diagnosis of MA versus myocardial injury, there must be ademonstrated rise and/ or fall in the troponin values, inaddition to ischemic symptoms, EKG changes, new regionalwall motion abnormality, and/or angiographical evidence. PLEASE NOTE: REFERENCE RANGES EDITED 17 Liver-Kidney <1.0 {Units} Comments: PATIENT NOT FASTINGPERFORMED BY: [employer] Gmdray6022 [facility] [id number] 2:14 Microsomal Ab (Normal) Range: 0.0-20.0 Comments: Negative 0.0 - 20.0 Equivocal 20.1 - 24.9 Positive >24.9 . LKM type 1 antibodies are detected in patients with autoimmune hepatitis type 2 and in up to 8% of patients with chronic HCV infection. 86-Aki-157305:14 HEPATIC FUNCTION PANEL Comments: PATIENT NOT FASTINGPERFORMED BY: [employer]6370 [facility] [id number] (27260) ALT (SGPT) 49 [iU]/L (Abnormal) Range: 0-32 AST (SGOT) 57 [iU]/L (Abnormal) Range: 0-40 Alkaline Phosphatase 100 [iU]/L (Normal) Range: 39-117 Bilirubin, Direct 0.14 mg/dL (Normal) Range: 0.00-0.40 Bilirubin, Total 0.4 mg/dL (Normal) Range: 0.0-1.2 Albumin 4.1 g/dL (Normal) Range: 3.5-4.8 Protein, Total 6.8 g/dL (Normal) Range: 6.0-8.5 41-Vkn-071400:14 HEPATITIS PANEL (01508) Comments: PATIENT NOT FASTINGPERFORMED BY: [employer] Pwcagw9474 [facility] [id number] Hep C Virus Ab <0.1 {s/co_ratio} (Normal) Range: 0.0-0.9 Comments: Negative: < 0.8 Indeterminate: 0.8 - 0.9 Positive: > 0.9 . The CDC recommends that a positive HCV antibody result be followed up with a HCV Nucleic Acid Amplification test (796781). Hep B Core Ab, IgM Negative (Normal) HBsAg Screen Negative (Normal) Hep A Ab, IgM Negative (Normal) 70-Ekm-481422:14 ANTIMITOCHONDRIAL ANTIBODY Comments: PATIENT NOT FASTINGPERFORMED BY: BVfon TelecommunicationNortheast Regional Medical Center Pxjzrq6288 [facility] [id number] (10128) Mitochondrial (M2) Antibody <20.0 {Units} (Normal) Range: 0.0-20.0 Comments: Negative 0.0 - 20.0 Equivocal 20.1 - 24.9 Positive >24.9 . Mitochondrial (M2) Antibodies are found in 90-96% of patients with primary biliary cirrhosis. 44-Jzr-573227:14 TRANSFERRIN (95331) Comments: PATIENT NOT FASTINGPERFORMED BY: [facility]6370 [facility] [id number] Transferrin 226 mg/dL (Normal) Range: 200-370 14-Ahg-578937:14 GGT (GAMMA GLUTAMYLTRANSFERASE) Comments: PATIENT NOT FASTINGPERFORMED BY: [facility]6370 [facility] [id number] (65775) GGT 59 [iU]/L (Normal) Range: 0-60 31-Qet-661691:14 FERRITIN (92402) Comments: PATIENT NOT FASTINGPERFORMED BY: [facility] Crkajg0956 [facility] [id number] Ferritin, Serum 545 ng/mL (Abnormal) Range: 15-150 32-Eck-990939:14 CMV IGM ANTBDY (24328) Comments: PATIENT NOT FASTINGPERFORMED BY: [facility] Wipnqf1772 [facility] [id number] Cytomegalovirus (CMV) Ab, IgM <30.0 AU/mL (Normal) Range: 0.0-29.9 Comments: Negative <30.0 Equivocal 30.0 - 34.9 Positive >34.9 A positive result is generally indicative of acute infection, reactivation or persistent IgM production. 61-Tjs-325463:14 CERULOPLASMIN (66860) Comments: PATIENT NOT FASTINGPERFORMED BY: [facility] Joqnyz6556 [facility] [id number] Ceruloplasmin 26.3 mg/dL (Normal) Range: 19.0-39.0 24-Cnj-396709:14 ASM (ANTI SMOOTH MUSCLE Comments: PATIENT NOT FASTINGPERFORMED BY: CORTEZ Griffin Fyttjl7029 [facility] [facility] [id number] ANTIBODY) (16776) Actin (Smooth Muscle) Antibody 5 {Units} (Normal) Range: 0-19 Comments: Negative 0 - 19 Weak positive 20 - 30 Moderate to strong positive >30 . Actin Antibodies are found in 52-85% of patients with autoimmune hepatitis or chronic active hepatitis and in 22% of patients with primary biliary cirrhosis. 84-Wtv-805751:14 MELI (ANTINUCLEAR ANTIBODY) Comments: PATIENT NOT FASTINGPERFORMED BY: CORTEZ BVfon TelecommunicationNortheast Regional Medical Center Rjuige8948 [facility] [facility] [id number] (53960) EMLI Direct Negative (Normal) 31-Fmr-707788:33 HgA1C , Office (19902) HgA1C , Office 7.2 % (Abnormal) Range: 4.6 - 7.1 09-Ggg-505683:38 MELI (ANTINUCLEAR ANTIBODY) Comments: PATIENT NOT FASTINGPERFORMED BY: [facility] Pmsyqg0839 [facility] [id number] (76529) MELI Direct Negative (Normal) 10-Adb-430146:38 VITAMIN B-12 (CYANOCOBALAMIN) Comments: PATIENT NOT FASTINGPERFORMED BY: BVfon TelecommunicationNortheast Regional Medical Center Cuobyu2316 [facility] [id number] (23466) Vitamin B12 463 pg/mL (Normal) Range: 232-1245 20-Mdi-014783:38 TSH (29238) Comments: PATIENT NOT FASTINGPERFORMED BY: [facility] Tximyf3777 [facility] [id number] TSH 0.062 {uIU/mL} (Abnormal) Range: 0.450-4.500 17-Zdv-897240:38 SED RATE ERYTHROCYTE (40721) Comments: PATIENT NOT FASTINGPERFORMED BY: CORTEZ [facility] Kkzcdb4502 [facility] [facility] [id number] Sedimentation Rate-Westergren 7 mm/h (Normal) Range: 0-40 61-Ajs-163323:38 METABOLIC PANEL, COMPREHENSIVE Comments: PATIENT NOT FASTINGPERFORMED BY: [facility] Vyrlzx9777 [facility] [id number] (57759) ALT (SGPT) 52 [iU]/L (Abnormal) Range: 0-32 [...] 8-27 Glucose 134 mg/dL (Abnormal) Range: 65-99 16-Qui-674068:38 C-REACTIVE PROTEIN (05927) Comments: PATIENT NOT FASTINGPERFORMED BY: LabCoEast Orange VA Medical CenterUmgkjs4263 [facility] [id number] C-Reactive Protein, Quant 4.8 mg/L (Normal) Range: 0.0-4.9 91-Lly-006907:38 CBC (AUTO) (72685) Comments: PATIENT NOT FASTINGPERFORMED BY: LabCoEast Orange VA Medical CenterRmgazm1626 [facility] [id number] Platelets 248 {x10E3/uL} Range: 150-379 (Normal) RDW [...] mg/L (Abnormal) Comments: PATIENT NOT FASTINGPERFORMED BY: [employer] [facility] [id number] BY: [address] [id number] 2:25 Serum Range: 0.6-2.4 Comments: Siemens Stealth Therapeuticsulite 2000 Immunochemiluminometric assay (ICMA) 2-Joy-966859:25 Immunoglobulins Comments: PATIENT NOT FASTINGPERFORMED BY: [employer]6370 [facility] [id number] BY: [employer] [id number] Iga/Ige/Igg/Igm (GAME) (94322) Immunoglobulin E, Total 259 {IU/mL} (Abnormal) Range: 0-100 Immunoglobulin M, Qn, Serum 113 mg/dL (Normal) Range: 26-217 Immunoglobulin A, Qn, Serum 130 mg/dL (Normal) Range: 64-422 Immunoglobulin G, Qn, Serum 837 mg/dL (Normal) Range: 700-1600 8-Sdt-113243:25 LDH (LD) (LACTATE Comments: PATIENT NOT FASTINGPERFORMED BY: [employer] [id number] BY: [address] [id number] DEHYDROGENASE) (31020) LDH 195 [iU]/L (Normal) Range: 119-226 8-Jvb-725085:25 METABOLIC PANEL, Comments: PATIENT NOT FASTINGPERFORMED BY: Stealth TherapeuticsCorey [place] 0068570 [facility] [id number] BY: BVfon Telecommunication[address] [id number] COMPREHENSIVE (57622) ALT (SGPT) 47 [iU]/L (Abnormal) Range: 0-32 [...] 8-27 Glucose 139 mg/dL (Abnormal) Range: 65-99 8-Ygg-880256:25 CBC, PLATELETS & AUT DIFF Comments: PATIENT NOT FASTINGPERFORMED BY: Stealth TherapeuticsCorey [place] 0068570 [facility] [id number] BY: BV[employer] Telecommunication[address] [id number] (67576) Immature Grans (Abs) 0.0 {x10E3/uL} (Normal) Range: [...] 3.77-5.28 WBC 7.2 {x10E3/uL} (Normal) Range: 3.4-10.8 41-Gqq-763497:28 Microscopic Examination Comments: PATIENT NOT FASTINGPERFORMED BY: Covalys BiosciencesFormerly [facility] [id number] Bacteria None seen (Normal) Mucus Threads Present (Normal) Cast Type Hyaline casts (Normal) Casts Present {/lpf} (Abnormal) Epithelial Cells (non renal) 0-10 {/hpf} (Normal) Range: 0 - 10 RBC 0-2 {/hpf} (Normal) Range: 0 - 2 WBC >30 {/hpf} (Abnormal) Range: 0 - 5 79-Bpu-564886:24 URINE RANI CULTURE-RADHA COL Comments: PATIENT NOT FASTINGPERFORMED BY: [employer] Games & EntertainmentFormerly [facility], [facility] [id number] Information: SRC:UC COUNT (46101) Antimicrobial MIHEAD (Normal) Comments: S = Susceptible; I = Intermediate; R = Resistant P = Positive; N = Negative MICS are expressed in micrograms per mL Antibiotic RSLT#1 RSLT#2 RS Susceptibility LT#3 RSLT#4Amoxicillin/Clavulanic Acid SAmpicillin RCefepime SCeftriaxone SCefuroxime SCephalothin SCiprofloxacin SGentamicin SImipenem SNitrofurantoin SPiperacillin RTetracycline STobram ycin STrimethoprim/Sulfa S Result 1 Raoultella Comments: 5,000 Colonies/mL planticola (Abnormal) Urine Final report Culture,Comprehensive (Abnormal) 11-Brq-480301:28 MICROALBUMIN: CREATININE RATIO Comments: PATIENT NOT FASTINGPERFORMED BY: Stealth TherapeuticsEast Orange VA Medical CenterYucmcg2284 [facility] [id number] (19862) AND (40239) Alb/Creat Ratio 215.8 {mg/g_creat} (Abnormal) Range: 0.0-30.0 Albumin, Urine 245.4 ug/mL (Normal) Creatinine, Urine 113.7 mg/dL (Normal) 66-Pbo-864408:28 URINALYSIS, W/ MICRO (23535) Comments: PATIENT NOT FASTINGPERFORMED BY: BVfon TelecommunicationHelen [facility]6370 [facility] [id number] Microscopic Examination See below: (Normal) Comments: Microscopic was indicated and was performed. Nitrite, Urine Negative (Normal) Urobilinogen,Semi-Qn 0.2 mg/dL (Normal) Range: 0.2-1.0 Bilirubin Negative (Normal) Occult Blood Negative (Normal) Ketones Negative (Normal) Glucose Trace (Abnormal) Protein 1+ (Abnormal) WBC Esterase 1+ (Abnormal) Appearance Clear (Normal) Urine-Color Yellow (Normal) pH 5.5 (Normal) Range: 5.0-7.5 Specific Sherwood 1.025 (Normal) Range: 1.005-1.030 09-Oax-607453:28 METABOLIC PANEL, COMPREHENSIVE Comments: PATIENT NOT FASTINGPERFORMED BY: [place] 8738870 [facility] [id number] (85790) ALT (SGPT) 37 [iU]/L (Abnormal) Range: 0-32 [...] Glucose, Serum 179 mg/dL (Abnormal) Range: 65-99 15-Wug-795429:28 CBC, PLATELETS & AUT DIFF Comments: PATIENT NOT FASTINGPERFORMED BY: [facility] Luzfyn9517 [facility] [id number] (35700) Immature Grans (Abs) 0.0 {x10E3/uL} (Normal) Range: [...] 3.77-5.28 WBC 9.3 {x10E3/uL} (Normal) Range: 3.4-10.8 54-Qii-781367:28 TSH (THYROID STIMULATING Comments: PATIENT NOT FASTINGPERFORMED BY: Stealth TherapeuticsEast Orange VA Medical CenterPylmse4237 [facility] [id number] HORMONE) (68336) TSH 23.220 {uIU/mL} (Abnormal) Range: 0.450-4.500 16-Fms-067291:28 LIPID PANEL (22112) Comments: PATIENT NOT FASTINGPERFORMED BY: Stealth TherapeuticsEast Orange VA Medical CenterBsyhsc7721 [facility] [id number] LDL/HDL Ratio 1.7 {ratio_units} (Normal) Range: 0.0-3.2 Comments: LDL/HDL Ratio Men Women 1/2 Avg.Risk 1.0 1.5 Av g.Risk 3.6 3.2 2X Avg.Risk 6.2 5.0 3X Avg.Risk 8.0 6.1 LDL Cholesterol Calc 83 mg/dL (Normal) Range: 0-99 VLDL Cholesterol Priscilla 42 mg/dL (Abnormal) Range: 5-40 HDL Cholesterol 48 mg/dL (Normal) Triglycerides 208 mg/dL (Abnormal) Range: 0-149 Cholesterol, Total 173 mg/dL (Normal) Range: 100-199 25-Nne-588393:28 CALCIFEDIOL (08408) Comments: PATIENT NOT FASTINGPERFORMED BY: [facility] Cocjdo9905 [place] [id number] Vitamin D, 25-Hydroxy 25.4 ng/mL (Abnormal) Range: 30.0-100.0 Comments: Vitamin D deficiency has been defined by the Kiester ofMedicine and an Endocrine Society practice guideline as alevel of serum 25-OH vitamin D less than 20 ng/mL (1,2).The Endocrine Society went on to further define vitamin Dinsufficiency as a level between 21 and 29 ng/mL (2).1. IOM (Kiester of Medicine). 2010. Dietary reference intakes for calcium and D. [place]: The National Academies Press.2. Rachel MF, Yael MARLEY, Dunia HERRERA, et al. Evaluation, treatment, and prevention of vitamin D deficiency: an Endocrine Society clinical practice guideline. JCEM. 2010; 96(7):1911-30. 03-Ddj-489387:40 Basic Metabolic Profile (BMP) Comments: 'TROP' Serial specimen #1, #2, #3, or #4: [address] [place] [address] In[address]ubc[address] [place], [address] GAP 11 (Normal) Range: 5-15 CO2 24.0 [...] 126 mg/dLsuggests DIABETES MELLITUS per A.D.A. criteria. 93-Vip-659465:40 BNP,B-Type NATRIURETIC PEPTIDE Comments: [facility] Kbaizhubqv[address] [place], [place], [address] B-TYPE SANJU PEP 13.3 pg/mL (Normal) Range: 0-100 37-Gxn-119431:40 CBC W/Diff, Automated Comments: [facility] Gvxxwoxgqr4875 [address] [place], [place], [address] Absolute Lymph 1.65 {X10_3/ul} (Normal) Range: 0.83-4.51 [...] 4.2-5.4 WBC 4.1 K/mm3 (Abnormal) Range: 4.4-11.0 43-Xyc-394324:40 Troponin-I Comments: 'TROP' Serial specimen #1, #2, #3, or #4: [address] [place] [address] Ziwp[address] [place], [address] TROPONIN-I < 0.02 ng/mL (Normal) Comments: TROPONIN-I EXPECTED VALUES <0.05 NEGATIVE 0.06 - 0.59 AT RISK OF MA > OR = 0.60 SUGGEST MA 56-Pmd-965255:08 Microscopic Examination Comments: PATIENT WAS FASTINGPERFORMED BY: [employer]6370 [facility] [id number] Bacteria Few (Normal) Mucus Threads Present (Normal) Cast Type Hyaline casts (Normal) Casts Present {/lpf} (Abnormal) Epithelial Cells (non renal) 0-10 {/hpf} (Normal) Range: 0 - 10 RBC 0-2 {/hpf} (Normal) Range: 0 - 2 WBC 11-30 {/hpf} (Abnormal) Range: 0 - 5 39-Qem-095850:08 CALCIFIDIOL (84008) VIT D 25 Comments: PATIENT WAS FASTINGPERFORMED BY: LabKnewbi.comrp Zduogm0923 [facility] [id number] Vitamin D, 25-Hydroxy 33.5 ng/mL (Normal) Range: 30.0-100.0 Comments: Vitamin D deficiency has been defined by the Kiester ofMedicine and an Endocrine Society practice guideline as alevel of serum 25-OH vitamin D less than 20 ng/mL (1,2).The Endocrine Society went on to further define vitamin Dinsufficiency as a level between 21 and 29 ng/mL (2).1. IOM (Kiester of Medicine). 2010. Dietary reference intakes for calcium and D. [place]: The National Academies Press.2. Rachel MF, Yael MARLEY, Dunia HERRERA, et al. Evaluation, treatment, and prevention of vitamin D deficiency: an Endocrine Society clinical practice guideline. JCEM. 2010; 96(7):1911-30. 52-Fmb-449990:08 TSH (99455) Comments: PATIENT WAS FASTINGPERFORMED BY: [facility]6370 [facility] [id number] TSH 3.700 {uIU/mL} (Normal) Range: 0.450-4.500 27-Llx-266888:08 LIPID PANEL (26629) Comments: PATIENT WAS FASTINGPERFORMED BY: [facility]6370 [facility] [id number] LDL/HDL Ratio 1.8 {ratio_units} (Normal) Range: 0.0-3.2 Comments: LDL/HDL Ratio Men Women 1/2 Avg.Risk 1.0 1.5 Av g.Risk 3.6 3.2 2X Avg.Risk 6.2 5.0 3X Avg.Risk 8.0 6.1 LDL Cholesterol Calc 84 mg/dL (Normal) Range: 0-99 VLDL Cholesterol Priscilla 49 mg/dL (Abnormal) Range: 5-40 HDL Cholesterol 46 mg/dL (Normal) Triglycerides 243 mg/dL (Abnormal) Range: 0-149 Cholesterol, Total 179 mg/dL (Normal) Range: 100-199 63-Zgk-474241:08 URINALYSIS, W/ MICRO (25081) Comments: PATIENT WAS FASTINGPERFORMED BY: [facility]6370 [facility] [id number] Microscopic Examination See below: (Normal) Comments: Microscopic was indicated and was performed. Nitrite, Urine Negative (Normal) Urobilinogen,Semi-Qn 0.2 mg/dL (Normal) Range: 0.2-1.0 Bilirubin Negative (Normal) Occult Blood Negative (Normal) Ketones Negative (Normal) Glucose Negative (Normal) Protein 2+ (Abnormal) WBC Esterase 1+ (Abnormal) Appearance Clear (Normal) Urine-Color Yellow (Normal) pH 5.5 (Normal) Range: 5.0-7.5 Specific Sherwood >=1.030 (Abnormal) Range: 1.005-1.030 30-Irg-737442:08 MICROALBUMIN: CREATININE RATIO Comments: PATIENT WAS FASTINGPERFORMED BY: [facility]6370 [facility] [id number] (82976) AND (78691) Microalb/Creat Ratio 246.3 {mg/g_creat} (Abnormal) Range: 0.0-30.0 Microalbumin, Urine 433.7 ug/mL (Normal) Comments: Results confirmed ondilution. Creatinine, Urine 176.1 mg/dL (Normal) 47-Sxq-870868:08 METABOLIC PANEL, COMPREHENSIVE Comments: PATIENT WAS FASTINGPERFORMED BY: [employer]70 iZettleFormerly [facility] [id number] (19880) ALT (SGPT) 26 [iU]/L (Normal) Range: 0-32 [...] Glucose, Serum 158 mg/dL (Abnormal) Range: 65-99 03-Cwy-205296:08 CBC W/AUTO DIFF WBC (68085) Comments: PATIENT WAS FASTINGPERFORMED BY: [employer] LabPoderopedia70 iZettleFormerly [facility] [id number] Immature Grans (Abs) 0.0 {x10E3/uL} (Normal) Range: [...] (Normal) Range: 3.4-10.8 :31 HgA1C , Office (12518) HgA1C , Office 6.6 % (Normal) Range: 4.6 - 7.1 :31 Blood Glucose , Office (18228) Blood Glucose , Office 143 (Normal) :45 CBC W/Diff, Automated Comments: [facility] [address] [place], [place], [address] Absolute Lymph 1.46 {X10_3/ul} (Normal) Range: 0.83-4.51 [...] 4.2-5.4 WBC 12.9 K/mm3 (Abnormal) Range: 4.4-11.0 7-Iia-858991:45 Comprehensive Metabolic Profil Comments: [facility] [address] [place], [place], [address] GAP 8 (Normal) Range: 5-15 CO2 27.0 [...] 126 mg/dLsuggests DIABETES MELLITUS per A.D.A. criteria. 7-Sjk-056728:45 Prothrombin Time w/INR Comments: [facility] [address] [place], [place], [address] INR 0.9 (Normal) PROTIME 11.6 s (Abnormal) Range: 11.7-14.9 3-Nex-349105:12 HgA1C , Office (02337) HgA1C , Office 6.5 % (Normal) Range: 4.6 - 7.1 3-Myw-573084:12 Blood Glucose , Office (35112) Blood Glucose , Office 122 (Normal) 41-Skh-76339:39 Lipid Profile Comments: [facility] [address] [place], [place], [address] VLDL 39 mg/dL (Normal) Range: 5-40 LDL [...] report for address and phone number METHYLM [id number] 215 nmol/L (Normal) Range: 0-378 Comments: Performed at: [address] [id number] Director: Frantz Josue MD, Phone: [phone] :39 Vitamin B12 531 pg/mL (Normal) Comments: [facility] [address]iq[address] [place], [address] Range: 211-911 :39 Vitamin D,25 Hydroxy Comments: [facility] [address] [place], [address] Vitamin D 25-OH 44.7 ng/mL (Normal) Comments: Vitamin D 25(OH) Status Range Deficiency <20 ng/mL (50nmol/L) Insuffciency 20 - 30 ng/mL (50 - 75 nmol/L) Sufficiency 30 - 100 ng/mL (75 - 250 nmol/L) Toxicity >100 ng/mL (>250 nmol/L) :29 Bedside Glucose Comments: [facility] LaboratoryPoint of [address] [place] [address] BEDSIDE GLU 139 mg/dL (Abnormal) Range: 70-110 Comments: No Action RequiredMANAGEMENT OF PATIENT CARE PER NURSING PROTOCOL COLON BIOPSY (CHOOSE See Note (Normal) Comments: [facility] [address]krenpb[address] [place], [address] :54 SITE) Comments: Patient: MARICRUZ GRIGSBY : 1940 (76/F) Acct Num: [id number] Phys: Constantine Saunders Unit Num: [id number] Loc: LABSPEC Specimen: [id number] Received: 11/05/16 - 163 Spe c Type: [...] one cassette. / RY:edita 11/06/16 TC:1 CPT: 73115 x2 HEADER OPERATION: Colonoscopy with polypectomy PRE-OP [...] Signed Zane Elliott 11/07/16 <signature on file> 64-Xaa-390480:47 CBC W/Diff, Automated Comments: [facility] [address] [place], [place], [address] Absolute Lymph 1.88 {X10_3/ul} (Normal) Range: 0.83-4.51 [...] 4.2-5.4 WBC 8.8 K/mm3 (Normal) Range: 4.4-11.0 02-Uoj-756831:42 Comprehensive Metabolic Profil Comments: Order Date: 10/10/16Order Info: 0786-1 - *CMP Complete Metabolic PanelOrder Info: 57014-0 - *IBC Iron \E AND E\ Total Iron Binding CapacityOrder Info: 2276-4 - *FerritinComments: Reason:Order Date: 10/10/16Order Info: 06012-2 - *KAPLAMBDA - [place] Lamda Light ChainsComments: Reason:[facility] Mydntlhumn7524 [facility]. [place], [place], [address] GAP 9 (Normal) Range: 5-15 CO2 28.0 [...] <126 mg/dLsuggests IMPAIRED HOMEOSTASIS per A.D.A. criteria. 21-Xis-877845:42 Ferritin Comments: Order Date: 10/10/16Order Info: 0786-1 - *CMP Complete Metabolic PanelOrder Info: 27271-7 - *IBC Iron \E AND E\ Total Iron Binding CapacityOrder Info: 2276-4 - *FerritinComments: Reason:Order Date: 10/10/16Order Info: 62876-3 - *KAPLAMBDA - [place] Lamda Light ChainsComments: Reason:[facility] [address] [place], [place], [address] FERRITIN 45 ng/mL (Normal) Range: 8-252 50-Xrb-384540:42 DEEPALI + Protein Elect, Serum Comments: Order Date: 10/10/16Order Info: 0282-1 - *IMEL DEEPALI + Prot Elec, Serum 1495Order Info: 53220-8 - *[place]BDA - [place] Lamda Light ChainsOrder Date: 10/10/16Order Info: 0282-1 - *IMEL DEEPALI + Prot Elec, Serum 1495Order Info: 45813-9 - *[place]DA - [place] Lamda Light ChainsOrder Date: 10/10/16Order Info: 11259-7 - *[place]DA - [place] Lamda Light ChainsIs Patient Fasting? NComments: Reason:[facility] (refer to report for specific site)refer to report for address and phone number NOTE: Comment (Normal) Comments: Protein electrophoresis scan will follow via computer,mail, or rn discharge delivery. DEEPALI RESULT,S Comment (Normal) Comments: Immunofixation shows IgG monoclonal protein with lambdalight chain specificity. A/G RATIO 1.4 (Normal) Range: 0.7-1.7 GLOBULIN, TOTAL 2.8 g/dL (Normal) Range: 2.2-3.9 M-SPIKE 0.3 g/dL (Abnormal) GAMMA GLOBULIN 0.8 g/dL (Normal) Range: 0.4-1.8 BETA GLOBULIN 0.9 g/dL (Normal) Range: 0.7-1.3 KMUZO-3-MMCE 0.9 g/dL (Normal) Range: 0.4-1.0 HOMPT-5-UCEE 0.2 g/dL (Normal) Range: 0.0-0.4 ALBUMIN 3.7 g/dL (Normal) Range: 2.9-4.4 IMMUNOGL M 100 mg/dL (Normal) Range: 26-217 IMMUNO A 106 mg/dL (Normal) Range: 64-422 IMMUNO G 693 mg/dL (Abnormal) Range: 700-1600 PROTEIN,TOTAL 6.5 g/dL (Normal) Range: 6.0-8.5 11-Hdr-628891:42 Iron+Iron Binding Capacity Comments: Order Date: 10/10/16Order Info: 0786-1 - *CMP Complete Metabolic PanelOrder Info: 60053-0 - *IBC Iron \E AND E\ Total Iron Binding CapacityOrder Info: 2276-4 - *FerritinComments: Reason:Order Date: 10/10/16Order Info: 58101-6 - *K[place]AMBDA - [place] Lamda Light ChainsComments: Reason:[facility] [address] [place], [place], [address] IRON SATURATION 15.9 % (Normal) Range: 15.0-55.0 IRON 49 ug/dL (Abnormal) Range: 50-170 TIBC 309 ug/dL (Normal) Range: 250-450 75-Hid-105846:42 [place] Lambda Light Chains Comments: Order Date: 10/10/16Order Info: 0282-1 - *IMEL DEEPALI + Prot Elec, Serum 1495Order Info: 29681-3 - *[place]DA - [place] Lamda Light ChainsOrder Date: 10/10/16Order Info: 0282-1 - *IMEL DEEPALI + Prot Elec, Serum 1495Order Info: 91200-9 - *[place]DA - [place] Lamda Light ChainsOrder Date: 10/10/16Order Info: [id number] - *[place]DA - [place] Lamda Light ChainsIs Patient Fasting? NComments: Reason:[facility] (refer to report for specific site)refer to report for address and phone number KAPPA/LAMBDA % 0.98 (Normal) Range: 0.26-1.65 Comments: Performed at: - [facility] [address] [id number] Director: Constantine Christianson PhD, Phone: [phone] FR LAMBDA LT CH 19.06 mg/L (Normal) Range: 5.71-26.30 FR KAPPA LT CHN 18.62 mg/L (Normal) Range: 3.30-19.40 04-Fjj-022412:06 VITAMIN B-12 (CYANOCOBALAMIN) Comments: PATIENT NOT FASTINGPERFORMED BY: [facility] Qlfofi1381 [facility] [id number] (14000) Vitamin B12 709 pg/mL (Normal) Range: 211-946 32-Rcv-331473:45 Blood Glucose , Office (45234) Blood Glucose , Office 104 (Normal) 01-Coh-373866:45 HgA1C , Office (95690) HgA1C , Office 6.7 % (Normal) Range: 4.6 - 7.1 :54 CBC W/Diff, Automated Comments: [facility] [address] [place], [place], [address] Absolute Lymph 1.51 {X10_3/ul} (Normal) Range: 0.83-4.51 [...] 4.2-5.4 WBC 7.0 K/mm3 (Normal) Range: 4.4-11.0 27-Gxu-88854:54 Comprehensive Metabolic Profil Comments: [facility] [address] [place], [place], [address] GAP 8 (Normal) Range: 5-15 CO2 28.0 [...] per A.D.A. criteria. :54 Lipid Profile Comments: [facility] [address] [place], [address] VLDL 38 mg/dL (Normal) Range: 5-40 LDL [...] High Risk :54 Microalb:Creat Ratio,Random UR Comments: [facility] [address]vlgc[address] [place], [address] MALB:CREAT 223.2 {mg/g_CRE} (Abnormal) MICROALBUMIN,UR 250.0 mg/L (Normal) UR CREAT 112.00 mg/dL (Normal) :54 Thyroid Stim Hormone (TSH) Comments: [facility] [address]odw[address] [place], [address] TSH 1.13 {uIU/mL} (Normal) Range: 0.358-3.74 :54 Urinalysis, Complete Comments: How was Urine Obtained? CLEAN [facility] [address] [place], [address] MUCUS, URINE 0 SEEN {/hpf} (Normal) [...] Yellow (Normal) :54 Vitamin D,25 Hydroxy Comments: [facility] [address] [place], [address] Vitamin D 25-OH 31.6 ng/mL (Normal) Comments: Vitamin D 25(OH) Status Range Deficiency <20 ng/mL (50nmol/L) Insuffciency 20 - 30 ng/mL (50 - 75 nmol/L) Sufficiency 30 - 100 ng/mL (75 - 250 nmol/L) Toxicity >100 ng/mL (>250 nmol/L) 55-Fcz-140083:07 VITAMIN B-12 (CYANOCOBALAMIN) Comments: PATIENT NOT FASTINGPERFORMED BY: [facility]6370 [facility] [id number] (57243) Vitamin B12 1119 pg/mL (Abnormal) Range: 211-946 28-Zxc-396756:23 Microscopic Examination Comments: PATIENT WAS FASTINGPERFORMED BY: [place] 8738870 [facility] [id number] Bacteria Few (Normal) Mucus Threads Present (Normal) Epithelial Cells (non renal) 0-10 {/hpf} (Normal) Range: 0 - 10 RBC 0-2 {/hpf} (Normal) Range: 0 - 2 WBC >30 {/hpf} (Abnormal) Range: 0 - 5 89-Ana-485277:23 VITAMIN B-12 (CYANOCOBALAMIN) Comments: PATIENT WAS FASTINGPERFORMED BY: [facility]6370 [facility] [id number] (41721) Vitamin B12 >2000 pg/mL (Abnormal) Range: 211-946 23-Fpf-098187:23 TSH (90228) Comments: PATIENT WAS FASTINGPERFORMED BY: [facility]6370 [facility] [id number] TSH 5.380 {uIU/mL} (Abnormal) Range: 0.450-4.500 72-Dsp-829783:23 URINALYSIS, W/ MICRO (76913) Comments: PATIENT WAS FASTINGPERFORMED BY: [facility]6370 [facility] [id number] Microscopic Examination See below: (Normal) Comments: Microscopic was indicated and was performed. Nitrite, Urine Negative (Normal) Urobilinogen,Semi-Qn 0.2 mg/dL (Normal) Range: 0.2-1.0 Bilirubin Negative (Normal) Occult Blood Negative (Normal) Ketones Negative (Normal) Glucose Negative (Normal) Protein Trace (Normal) WBC Esterase 2+ (Abnormal) Appearance Clear (Normal) Urine-Color Yellow (Normal) pH 6.0 (Normal) Range: 5.0-7.5 Specific Sherwood 1.022 (Normal) Range: 1.005-1.030 35-Ohf-012792:23 MICROALBUMIN: CREATININE RATIO Comments: PATIENT WAS FASTINGPERFORMED BY: BV[facility] TelecommunicationHelen [facility]6370 [facility] [id number] (59171) AND (69104) Microalb/Creat Ratio 24.2 {mg/g_creat} (Normal) Range: 0.0-30.0 Microalbumin, Urine 35.4 ug/mL (Normal) Creatinine, Urine 146.0 mg/dL (Normal) 09-Wjt-297256:23 METABOLIC PANEL, COMPREHENSIVE Comments: PATIENT WAS FASTINGPERFORMED BY: Stealth TherapeuticsEast Orange VA Medical CenterSxwyki4710 [facility] [id number] (67394) ALT (SGPT) 25 [iU]/L (Normal) Range: 0-32 [...] Glucose, Serum 143 mg/dL (Abnormal) Range: 65-99 57-Qzw-963308:23 CBC W/AUTO DIFF WBC (55432) Comments: PATIENT WAS FASTINGPERFORMED BY: LabCoEast Orange [facility] Medical CenterGbhern8376 [facility] [id number] Immature Grans (Abs) 0.0 {x10E3/uL} (Normal) Range: [...] 3.77-5.28 WBC 7.4 {x10E3/uL} (Normal) Range: 3.4-10.8 47-Nph-540211:23 CALCIFIDIOL (01174) VIT D 25 Comments: PATIENT WAS FASTINGPERFORMED BY: LabCoEast Orange [facility] Medical CenterWgnwcd5574 [facility] [id number] Vitamin D, 25-Hydroxy 28.9 ng/mL (Abnormal) Range: 30.0-100.0 Comments: Vitamin D deficiency has been defined by the Kiester ofLancaster Municipal Hospitalcine and an Endocrine Society practice guideline as alevel of serum 25-OH vitamin D less than 20 ng/mL (1,2).The Endocrine Society went on to further define vitamin Dinsufficiency as a level between 21 and 29 ng/mL (2).1. IOM (Kiester of Medicine). 2010. Dietary reference intakes for calcium and D. [place]: The National Academies Press.2. Rachel MF, Yael NC, Dunia HERRERA, et al. Evaluation, treatment, and prevention of vitamin D deficiency: an Endocrine Society clinical practice guideline. JCEM. 2010; 96(7):1911-30. :22 HgA1C , Office (70707) HgA1C , Office 7.1 % (Normal) Range: 4.6 - 7.1 :22 Blood Glucose , Office (65970) Blood Glucose , Office 171 (Normal) 8-Jqc-710382:10 Basic Metabolic Profile (BMP) Comments: Serial Specimen #1, #2 or #3? 1'TROP' Serial specimen #1, #2, #3, or #4: 1[facility] [address] [place], [address] GAP 8 (Normal) Range: 5-15 CO2 28.0 [...] 126 mg/dLsuggests DIABETES MELLITUS per A.D.A. criteria. 0-Fid-895351:10 CBC W/Diff, Automated Comments: [facility] [address] [place], [place], [address] Absolute Lymph 1.32 {X10_3/ul} (Normal) Range: 0.83-4.51 [...] Serial specimen #1, #2, #3, or #4: [address] [place] [address] [address] [place], [address] CKRI 1.3 % (Normal) Range: [...] Serial specimen #1, #2, #3, or #4: [address] [place] [address] Dsehcfkndu[address]01 [place], [address] TROPONIN-I < 0.02 ng/mL (Normal) Comments: TROPONIN-I EXPECTED VALUES <0.05 NEGATIVE 0.06 - 0.59 AT RISK OF MA > OR = 0.60 SUGGEST MA :55 Blood Glucose , Office (34067) Blood Glucose , Office 117 (Normal) :36 HgA1C , Office (44468) HgA1C , Office 7.1 % (Normal) Range: 4.6 - 7.1 :52 CBC W/Diff, Automated Comments: CBCD WITH WBC PER [facility] [address]kghafxt[address] [place], [address] Absolute Lymph 1.67 {X10_3/ul} (Normal) [...] Range: 4.4-11.0 30-Nov-20156:52 Comprehensive Metabolic Profil Comments: [facility] [address] [place], [place], [address] GAP 10 (Normal) Range: 5-15 CO2 26.0 [...] per A.D.A. criteria. :52 Immunofixation Urine Comments: [facility] (refer to report for specific site)refer to report for address and phone number DEEPALI Urine Comment (Normal) Comments: Immunofixation shows IgG monoclonal protein with lambdalight chain specificity.Bence Jorge Protein positive; lambda type.Performed at: [place] [address] 1269[facility] Dire ctor: Constantine Christianson PhD, Phone: [phone] :52 Immunofixation, Serum Comments: [facility] (refer to report for specific site)refer to report for address and phone number DEEPALI RESULT,S Comment (Normal) Comments: Immunofixation shows IgG monoclonal protein with lambdalight chain specificity. IMMUNOGL M 112 mg/dL (Normal) Range: 26-217 IMMUNO A 110 mg/dL (Normal) Range: 64-422 IMMUNO G 783 mg/dL (Normal) Range: 700-1600 :52 [place] Lambda Light Chains Comments: [facility] (refer to report for specific site)refer to report for address and phone number KAPPA/LAMBDA % 1.03 (Normal) Range: 0.26-1.65 FR LAMBDA LT CH 21.11 mg/L (Normal) Range: 5.71-26.30 FR KAPPA LT CHN 21.66 mg/L (Abnormal) Range: 3.30-19.40 :52 Lipid Profile Comments: [facility] [address]qs[address] [place], [address] ; review OV 12/02/15 VLDL 35 mg/dL [...] High Risk :52 Microalb:Creat Ratio,Random UR Comments: [facility] [address] [place], [address] MALB:CREAT 44.5 {mg/g_CRE} (Abnormal) MICROALBUMIN,UR 68.1 mg/L (Normal) UR CREAT 153.00 mg/dL (Normal) :52 Vitamin B12 268 pg/mL (Normal) Comments: [facility] [address] [place], [address] Range: 211-911 Comments: ADDENDA: normal and has f/u this saturday:52 Vitamin D,25 Hydroxy Comments: [facility] [address] [place], [address] Vitamin D 25-OH 48.8 ng/mL (Normal) Comments: Vitamin D 25(OH) Status Range Deficiency <20 ng/mL (50nmol/L) Insuffciency 20 - 30 ng/mL (50 - 75 nmol/L) Sufficiency 30 - 100 ng/mL (75 - 250 nmol/L) Toxicity >100 ng/mL (>250 nmol/L) :15 Basic Metabolic Profile (BMP) Comments: [facility] [address] [place], [address] GAP 10 (Normal) Range: 5-15 [...] A.D.A. criteria. :15 CBC W/Diff, Automated Comments: [facility] [address] [place], [address] RED CELL MORPH NORM C+C [...] 4.2-5.4 WBC 11.4 K/mm3 (Abnormal) Range: 4.4-11.0 84-Sbf-364109:08 HgA1C , Office (44556) HgA1C , Office 6.8 % (Normal) Range: 4.6 - 7.1 9-Vnb-866188:30 FERRITIN (76903) Comments: PATIENT WAS FASTINGPERFORMED BY: [employer]70 [facility] [id number] Ferritin, Serum 121 ng/mL (Normal) Range: 15-150 4-Xuz-468874:30 IRON (59383) Comments: PATIENT WAS FASTINGPERFORMED BY: Deep [employer]70 [employer] [facility] [id number] Iron, Serum 56 ug/dL (Normal) Range: 35-155 [...] - 159 >60 years 27 - 139 7-Ibp-906782:30 TSH (89055) Comments: PATIENT WAS FASTINGPERFORMED BY: [facility]CoEast [facility] Medical CenterUljomp4393 [facility] [id number] TSH 1.660 {uIU/mL} (Normal) Range: 0.450-4.500 0-Dtp-888891:30 LIPID PANEL (28335) Comments: PATIENT WAS FASTINGPERFORMED BY: [facility]CoEast [facility] Medical CenterLuxwlw3305 [facility] [id number] LDL/HDL Ratio 2.1 {ratio_units} (Normal) Range: 0.0-3.2 [...] Cholesterol, Total 190 mg/dL (Normal) Range: 100-199 6-Jpj-911400:30 METABOLIC PANEL, COMPREHENSIVE Comments: PATIENT WAS FASTINGPERFORMED BY: [facility] Ojhdsr9868 [facility] [id number] (38774) ALT (SGPT) 24 [iU]/L (Normal) Range: 0-32 [...] Glucose, Serum 122 mg/dL (Abnormal) Range: 65-99 0-Lbk-204802:30 Vitamin D Hydroxy (32826) Comments: PATIENT WAS FASTINGPERFORMED BY: [employer] [place] [id number] Vitamin D, 25-Hydroxy 25.3 ng/mL (Abnormal) Range: 30.0-100.0 Comments: Vitamin D deficiency has been defined by the Kiester ofMedicine and an Endocrine Society practice guideline as alevel of serum 25-OH vitamin D less than 20 ng/mL (1,2).The Endocrine Society went on to further define vitamin Dinsufficiency as a level between 21 and 29 ng/mL (2).1. IOM (Kiester of Medicine). 2010. Dietary reference intakes for calcium and D. [place]: The National Academies Press.2. Rachel MF, Yael NC, Dunia HERRERA, et al. Evaluation, treatment, and prevention of vitamin D deficiency: an Endocrine Society clinical practice guideline. JCEM. 2010; 96(7):1911-30. 7-Qgk-463368:30 CBC W/AUTO DIFF WBC Comments: PATIENT WAS FASTINGPERFORMED BY: [facility] BiosciencesThe Medical Center [id number] Information: [id number] (31060) Immature Grans (Abs) 0.0 {x10E3/uL} (Normal) Range: [...] 3.77-5.28 WBC 8.2 {x10E3/uL} (Normal) Range: 3.4-10.8 5-Tmh-251524:30 serum free light chains Comments: PATIENT WAS FASTINGPERFORMED BY: LabCoEast [facility] Medical CenterVsynck5861 [facility] [id number] (51479) [place]/Lambda Ratio,S 0.81 (Normal) Range: 0.26-1.65 Free Lambda Lt Chains,S 17.93 mg/L (Normal) Range: 5.71-26.30 Free [place] Lt Chains,S 14.55 mg/L (Normal) Range: 3.30-19.40 9-Api-440757:08 urine immunofixation (90211) Comments: PATIENT NOT FASTINGPERFORMED BY: [facility]CoEast [facility] Medical CenterKipgjt6752 [facility] [id number] Information: SRC:UR [id number] DEEPALI Interpretation:U IFEGL (Normal) Comments: 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 5-Sdl-740924:30 serum immunofixation (87241) Comments: PATIENT WAS FASTINGPERFORMED BY: [facility]Co[facility] CenterXmfcef3769 [facility] [id number] Immunoglobulin M, Qn, Serum 99 mg/dL (Normal) Range: 40-230 Immunoglobulin A, Qn, Serum 107 mg/dL (Normal) Range: 91-414 Immunoglobulin G, Qn, Serum 814 mg/dL (Normal) Range: 700-1600 Immunofixation Result, Serum IFEGL (Normal) Comments: Immunofixation shows IgG monoclonal protein with lambda light chainspecificity. :49 CBC W/Diff, Automated Comments: [facility] [address] [place], [place], [address] Absolute Lymph 0.99 {X10_3/ul} (Normal) Range: 0.83-4.51 [...] K/mm3 (Normal) Range: 4.4-11.0 :49 Ferritin Comments: [facility] [address] [place], [address] FERRITIN 80 ng/mL (Normal) Range: 8-252 :49 Hemoglobin A1c Comments: [facility] [address] [place], [address] HGB A1C 6.4 % (Abnormal) Range: 4.2-6.3 :49 Iron Comments: [facility] [address] [place], [address] IRON 43 ug/dL (Abnormal) Range: 50-170 :49 Iron Binding Capacity,Total Comments: [facility] [address] [place], [address] TIBC 336 ug/dL (Normal) Range: 250-450 :49 Protein Electro.Ur-Random Comments: [facility] (refer to report for specific site)refer to report for address and phone number M-SPIKE,U Test not performed (Normal) GAMMA GLOB,U Test not performed (Normal) Comments: Test not performed BETA GLOB,U Test not performed (Normal) Comments: Test not performed PYJUB-1-PTHM,U Test not performed (Normal) Comments: Test not performed HFCOL-7-APUB,U Test not performed (Normal) Comments: Test not [...] electrophoresis scan will follow via computer,mail, or rn discharge delivery. NOTE: Comment (Normal) Comments: The SPE [...] electrophoresis scan will follow via computer,mail, or rn discharge delivery. A/G RATIO 1.5 (Normal) Range: 0.7-2.0 [...] 6.0-8.5 :49 Thyroid Stim Hormone (TSH) Comments: [facility] [address] [place], [place], [address] TSH 4.43 {uIU/mL} (Abnormal) Range: 0.358-3.74 :49 Vitamin B12 431 pg/mL (Normal) Comments: [facility] [address] [place], [place], [address] Range: 211-911 Comments: ADDENDA: has apt today :58 AFP, Tumor Marker Comments: Is [facility] ? [facility] (refer to report for specific site)refer to report for address and phone number AFP TUMOR 2253 4.9 ng/mL (Normal) Range: 0.0-8.3 Comments: Patricia ECLIA methodologyPerformed at: - [facility] [address] [id number] Director: Constantine Christianson PhD, Phone: [phone] :[phone] CBC W/Diff, Automated Comments: [facility] [address]xf[address]bp[address] [place], [place], [address] Absolute Lymph 1.46 {X10_3/ul} (Normal) Range: 0.83-4.51 [...] 4.2-5.4 WBC 7.3 K/mm3 (Normal) Range: 4.4-11.0 59-Lhq-90481:58 Comprehensive Metabolic Profil Comments: [facility] [address] [place], [address] GAP 7 (Normal) Range: 5-15 [...] per A.D.A. criteria. :58 Lipid Profile Comments: [facility] [address]fehai[address] [place], [place], [address] ; non-emergent and has apth this week [...] :58 Vitamin B12 278 pg/mL (Normal) Comments: [facility] Zbefimfjek0732 [facility] [place], [address] Range: 211-911 :58 Vitamin D,25 Hydroxy Comments: [facility] [address] [place], [address] Vitamin D 25-OH 38.4 ng/mL (Normal) Comments: Vitamin D 25(OH) Status Range Deficiency <20 ng/mL (50nmol/L) Insuffciency 20 - 30 ng/mL (50 - 75 nmol/L) Sufficiency 30 - 100 ng/mL (75 - 250 nmol/L) Toxicity >100 ng/mL (>250 nmol/L) 05-Yiu-489878:07 HgA1C , Office (54343) HgA1C , Office 6.5 % (Normal) Range: 4.6 - 7.1 :43 AFP, Tumor Marker Comments: Is Patient ? NTest performed at:[facility] Ubsqhbafud8948 [facility] [place] [address] AFP TUMOR 2253 4.8 ng/mL (Normal) Range: 0.0-8.3 Comments: [employer] ECLIA methodologyPerformed at: [facility] [employer] [address] [id number] Director: Arnold Jefferson PhD, Phone: [phone] :[phone] CBC W/Diff, Automated Comments: Test performed at:[facility] Mruefscvwf6765 [facility] [place] [address] Absolute Lymph 1.16 {X10_3/ul} (Normal) [...] 4.2-5.4 WBC 5.6 K/mm3 (Normal) Range: 4.4-11.0 95-Ldh-67785:43 Comprehensive Metabolic Profil Comments: Test performed at:[facility] [address] [place] [address] GAP 11 (Normal) Range: 5-15 CO2 24.0 [...] criteria. :43 Lipid Profile Comments: Test performed at:[facility] [address] [place] [address] VLDL 61 mg/dL (Abnormal) Range: 5-40 [...] :43 Microalb:Creat Ratio,Random UR Comments: Test performed at:[facility] [address] [place] [address] MALB:CREAT 15.9 {mg/g_CRE} (Normal) MICROALBUMIN,UR 19.2 mg/L (Normal) UR CREAT 120.3 mg/dL (Normal) :43 Thyroid Stim Hormone (TSH) Comments: Test performed at:[facility] [address] [place] [address] TSH 2.19 {uIU/mL} (Normal) Range: 0.358-3.74 :43 Vitamin B12 261 pg/mL (Normal) Comments: Test performed at:[facility] [address] [place] [address] Range: 211-911 Comments: ADDENDA: nl and pt has apt tomorrow :43 Vitamin D,25 Hydroxy Comments: Test performed at:[facility] [address] [place] [address] Vitamin D 25-OH 30.9 ng/mL (Normal) Comments: Vitamin D 25(OH) Status Range Deficiency <20 ng/mL (50nmol/L) Insuffciency 20 - 30 ng/mL (50 - 75 nmol/L) Sufficiency 30 - 100 ng/mL (75 - 250 nmol/L) Toxicity >100 ng/mL (>250 nmol/L) :38 HgA1C , Office (00597) HgA1C , Office 6.7 % (Normal) Range: 4.6 - 7.1 :56 AFP, Tumor Marker Comments: Is Patient ? NTest performed at:[facility] [address] [place] [address] ; appt 02/15 AFP TUMOR 2253 4.8 ng/mL (Normal) Range: 0.0-8.3 Comments: [employer] ECLIA methodologyPerformed at: [facility] [address] [id number] Director: Arnold Jefferson PhD, Phone: [phone] :[phone] CBC W/Diff, Automated Comments: Test performed at:[facility] [address] [place] [address] Absolute Lymph 2.37 {X10_3/ul} (Normal) Range: [...] 4.4-11.0 :56 Lipid Profile Comments: Test performed at:[facility] [address] [place], [place] [id number] VLDL 26 mg/dL (Normal) Range: 5-40 LDL [...] :56 Partial Thromboplast Time Comments: Test performed at:[facility] [address] [place] [address] PTT 30.1 s (Normal) Range: 24.1-36.2 :56 Prothrombin Time w/INR Comments: Test performed at:[facility] [address] [place] [address] INR 1.0 (Normal) PROTIME 12.8 s (Normal) Range: 11.7-14.9 :56 Thyroid Stim Hormone (TSH) Comments: Test performed at:[facility] [address] [place] [address] TSH 5.17 {uIU/mL} (Abnormal) Range: 0.358-3.74 :56 Vitamin B12 293 pg/mL (Normal) Comments: Test performed at:[facility] [address] [place] [address] Range: 211-911 :56 Vitamin D,25 Hydroxy Comments: Test performed at:[facility] [address] [place] [address] Vitamin D 25-OH 32.0 ng/mL (Normal) Comments: Vitamin D 25(OH) Status Range Deficiency <20 ng/mL (50nmol/L) Insuffciency 20 - 30 ng/mL (50 - 75 nmol/L) Sufficiency 30 - 100 ng/mL (75 - 250 nmol/L) Toxicity >100 ng/mL (>250 nmol/L) :07 HgA1C , Office (79796) HgA1C , Office 6.3 % (Normal) Range: 4.6 - 7.1 :33 CBC W/Diff, Automated Comments: Test performed at:[facility] [address] [place] [address] ; non- emergent till apt Absolute [...] 4.2-5.4 WBC 7.3 K/mm3 (Normal) Range: 4.4-11.0 81-Pvq-72799:33 Comprehensive Metabolic Profil Comments: Test performed at:[facility] [address] [place], [place] [id number] GAP 4 (Abnormal) Range: 5-15 CO2 28.0 [...] criteria. :33 Lipid Profile Comments: Test performed at:[facility] [address] [place] [address] VLDL 29 mg/dL (Normal) Range: [...] B12 394 pg/mL (Normal) Comments: Test performed at:[facility] [address] [facility] [place] [address] Range: 211-911 :33 Vitamin D,25 Hydroxy Comments: Test performed at:[facility] [address] [facility]. [place], [place] [id number] Vitamin D 25-OH 39.6 ng/mL (Normal) Comments: Vitamin D 25(OH) Status Range Deficiency <20 ng/mL (50nmol/L) Insuffciency 20 - 30 ng/mL (50 - 75 nmol/L) Sufficiency 30 - 100 ng/mL (75 - 250 nmol/L) Toxicity >100 ng/mL (>250 nmol/L) :10 HgA1C , Office (72830) HgA1C , Office 6.4 % (Normal) Range: [...] 4.2-5.4 WBC 6.0 K/mm3 (Normal) Range: 4.4-11.0 81-Zzz-19812:42 CMP GAP 5 (Normal) Range: 5-15 CO2 [...] CHOL 167 mg/dL (Normal) Comments: <200 mg/dL Wwhgurssp880-759 mg/dL Borderline>240 mg/dL High Risk TRIG 200 mg/dL (Abnormal) Range: 0-199 Comments: Serum Triglycerides Reference IntervalNormal <150 mg/dLBorderline high 150 - 199 mg/dLHigh 200 - 499 mg/ dLVery High > or = 500 mg/dL :42 TIBC 275 ug/dL (Normal) Range: 250-450 :42 TSH 2.12 {uIU/mL} (Normal) Range: 0.358-3.74 14-Uku-526183:10 FERRITIN (85654) Comments: PATIENT NOT FASTINGPERFORMED BY: [facility] Pbtwwu1508 [address] [facility] [id number] Ferritin, Serum 133 ng/mL (Normal) Range: 15-150 07-Lgn-020985:10 IRON BINDING CAPACITY Comments: PATIENT NOT FASTINGPERFORMED BY: [facility] Nkqnjn1193 [facility] [id number] Information: [id number] (TIBC) (66249) Iron Saturation 20 % (Normal) Range: 15-55 Iron, Serum 62 ug/dL (Normal) Range: 35-155 UIBC 241 ug/dL (Normal) Range: 150-375 Iron Bind.Cap.(TIBC) 303 ug/dL (Normal) Range: 250-450 53-Waf-473212:10 VITAMIN B-12 (CYANOCOBALAMIN) Comments: PATIENT NOT FASTINGPERFORMED BY: [facility]Co[facility] CenterApmkim3090 [facility] [id number] (34402) Vitamin B12 421 pg/mL (Normal) Range: 211-946 :10 TSH (91415) Comments: PATIENT NOT FASTINGPERFORMED BY: [facility] Icaulq9972 [facility] [id number] TSH 1.150 {uIU/mL} (Normal) Range: 0.450-4.500 96-Bol-079143:37 HgA1C , Office (63111) HgA1C , Office 6.1 % (Normal) Range: 4.6 - 7.1 7-Psw-115681:10 CBC with manual diff Comments: PATIENT WAS FASTINGPERFORMED BY: [facility] Xsotrb7563 [facility] [id number] Information: [id number] (15505) Immature Grans (Abs) 0.0 {x10E3/uL} (Normal) Range: [...] 3.77-5.28 WBC 8.2 {x10E3/uL} (Normal) Range: 3.4-10.8 3-Qez-421202:10 Metabolic Panel, Comprehensive Comments: PATIENT WAS FASTINGPERFORMED BY: [facility]Co[facility] CenterBctbph6703 [facility] [id number] (88250) ALT (SGPT) 11 [iU]/L (Normal) Range: 0-32 [...] Glucose, Serum 129 mg/dL (Abnormal) Range: 65-99 9-Qib-949636:10 Lipid Panel (72695) Comments: PATIENT WAS FASTINGPERFORMED BY: [facility]Co[facility] CenterLawoae5932 [facility] [id number] LDL/HDL Ratio 1.4 {ratio_units} (Normal) Range: 0.0-3.2 [...] METABOLIC PANEL, Comments: PATIENT NOT FASTINGPERFORMED BY: [employer] Vegqyu8461 [facility] [id number] Information: [id number] COMPREHENSIVE (58319) ALT (SGPT) 15 [iU]/L (Normal) Range: 0-32 [...] 133 mg/dL (Abnormal) Range: 65-99 :14 TSH (92356) Comments: PATIENT NOT FASTINGPERFORMED BY: [facility]Co[facility] CenterUpuooy1278 [facility] [id number] TSH 0.182 {uIU/mL} (Abnormal) Range: 0.450-4.500 :40 [...] CHOL 99 mg/dL (Normal) Comments: <200 mg/dL Hzhayoxlc187-538 mg/dL Borderline>240 mg/dL High Risk :40 MIACRE [...] CHOL 148 mg/dL (Normal) Comments: <200 mg/dL Bulvqxifk044-740 mg/dL Borderline>240 mg/dL High Risk HDL 46 [...] - 250 nmol/L)Toxicity >100 ng/mL (>250 nmol/L) 92-Dem-209304:27 HgA1C , Office (90499) HgA1C , Office 6.7 % (Normal) Range: 4.6 - 7.1 :17 METABOLIC PANEL, COMPREHENSIVE Comments: PATIENT WAS FASTINGPERFORMED BY: [facility] Vyylzg3003 [facility] [id number] (89866) ALT (SGPT) 16 [iU]/L (Normal) Range: 0-32 [...] mg/dL (Abnormal) Range: 65-99 :17 LIPID PANEL (56974) Comments: PATIENT WAS FASTINGPERFORMED BY: [employer] Tptqcb5138 [facility] [id number] LDL/HDL Ratio 2.0 {ratio_units} (Normal) Range: 0.0-3.2 [...] Comments: PATIENT WAS FASTINGPERFORMED BY: [facility]6370 [facility] [id number] Information: [id number] (27549) Immature Grans (Abs) 0.0 {x10E3/uL} (Normal) Range: [...] B-12 (CYANOCOBALAMIN) Comments: PATIENT WAS FASTINGPERFORMED BY: [employer] Shuprg3118 [address] [facility] [place] [id number] (32262) Vitamin B12 696 pg/mL (Normal) Range: 211-946 :17 Vitamin D Hydroxy (40194) Comments: PATIENT WAS FASTINGPERFORMED BY: [facility] Aqfhve1839 [address] RoadDublin [place] [id number] Vitamin D, 25-Hydroxy 29.3 ng/mL (Abnormal) Range: 30.0-100.0 Comments: Vitamin D deficiency has been defined by the Kiester ofLancaster Municipal Hospitalcine and an Endocrine Society practice guideline as alevel of serum 25-OH vitamin D less than 20 ng/mL (1,2).The Endocrine Society went on to further define vitamin Dinsufficiency as a level between 21 and 29 ng/mL (2).1. IOM (Kiester of Medicine). 2010. Dietary reference intakes for calcium and D. [place]: The National Academies Press.2. Rachel MF, Yael NC, Dunia HERRERA, et al. Evaluation, treatment, and prevention of vitamin D deficiency: an Endocrine Society clinical practice guideline. JCEM. 2010; 96(7):1911-30. :29 HgA1C , Office (47142) HgA1C , Office 7.0 % (Normal) Range: 4.6 - 7.1 :14 B12 794 pg/mL (Normal) Range: 211-911 Comments: Effective 2012:14 VITD 37.5 ng/mL (Normal) Comments: Vitamin D 25(OH) Status RangeDeficiency <20 ng/mL (50nmol/L)Insufficiency 20 - 30 ng/mL (50 - 75 nmol/L)Sufficiency 30 - 100 ng/mL (75 - 250 nm ol/L)Toxicity >100 ng/mL (250 nmol/L)Effective 201201-Dec-20128-Mgj-007721:13 CHEST PA AND LATERAL Radiology Report See [...] Tate D.O.December 01, 2012 at 12:40:54 PM [id number] Signed DS/DS If you are the referring physician and would like to consult with theradiologist who provided this i nterpretation, please contact Eulalio Tate D.O. at [phone]. If this radiologist is unavailable, you will bedirected to another radiologist to assist. If you are a patient with a question regarding t his report, pleasecontactyour referring physician directly. Professional Interpretation Provided By: [employer], Phone , These documents contain legally protected [...] 12/01/12 1244 Sign by: Mack Peterson DO 81-Fdd-380256:20 Upper Respiratory Culture Comments: PATIENT NOT FASTINGPERFORMED BY: [facility]CoEast [facility] CenterGfzvcw1548 [address] [place] [id number] Information: SRC: THROAT Result 1 RRF (Normal) Comments: Routine respiratory alton Upper Respiratory Culture Final report (Normal) 74-Onx-319676:06 Rapid Strep Test, Office (25052) Rapid Strep Test, Office Negative (Normal) 81-Ljn-822049:32 BILAT SCRN DIGITAL & CAD Radiology Report [...] Wayne M.D.November 18, 2012 at 12:51:57 PM [id number] Signed GP/GP If you are the referring physician and would like to consult with theradiologist who provid ed this interpretation, please contact Lee Claudio at [phone]. If this radiologist is unavailable, youwill be directed to another radiologist to assist. If you are a patient with a ques tion regarding this report, pleasecontactyour referring physician directly. Professional Interpretation Provided By: [employer], Phone , These documents contain legally pr [...] 11/18/12 1254 Sign by: Teo Wayne MD 6-Oqb-534289:24 URINE RANI CULTURE-IDENTIFICATN Comments: PATIENT NOT FASTINGPERFORMED BY: [facility] MinderPlains Regional Medical CenterTycxta6441 [facility] [id number] Information: [id number] (83920) Result 1 MUG (Normal) Comments: Mixed urogenital flora10,000-25,000 colony forming units per mL Urine Final report (Normal) Culture,Comprehensive 64-Vti-676136:50 METABOLIC PANEL, Comments: PATIENT NOT FASTINGPERFORMED BY: [employer] Cjvqok0746 [facility] [id number] Information: ADD [id number] AND DRAW FEE 99 1984 COMPREHENSIVE (90614) ALT (SGPT) 14 [iU]/L (Normal) Range: 0-32 [...] Glucose, Serum 109 mg/dL (Abnormal) Range: 65-99 0-Psf-393922:42 HgA1C , Office (53548) HgA1C , Office 6.3 % (Normal) Range: 4.6 - 7.1 :04 Microscopic Examination Comments: PATIENT NOT FASTINGPERFORMED BY: [employer] [place] [id number] Bacteria Few (Normal) Mucus Threads Present (Normal) Cast Type Hyaline casts (Normal) Casts Present {/lpf} (Abnormal) Epithelial Cells (non renal) 0-10 {/hpf} (Normal) Range: 0 - 10 RBC 0-3 {/hpf} (Normal) Range: 0 - 3 WBC 6-10 {/hpf} (Abnormal) Range: 0 - 5 :04 VITAMIN B-12 (CYANOCOBALAMIN) Comments: PATIENT NOT FASTINGPERFORMED BY: [employer] [place] [id number] (78798) Vitamin B12 1228 pg/mL (Abnormal) Range: 211-946 :04 Vitamin D Hydroxy (54066) Comments: PATIENT NOT FASTINGPERFORMED BY: [employer] [place] [id number] Vitamin D, 25-Hydroxy 21.9 ng/mL (Abnormal) Range: 30.0-100.0 Comments: Vitamin D deficiency has been defined by the Kiester ofMedicine and an Endocrine Society practice guideline as alevel of serum 25-OH vitamin D less than 20 ng/mL (1,2).The Endocrine Society went on to further define vitamin Dinsufficiency as a level between 21 and 29 ng/mL (2).1. IOM (Kiester of Medicine). 2010. Dietary reference intakes for calcium and D. [place]: The National Academies Press.2. Rachel MF, Yael MARLEY, Dunia HERRERA, et al. Evaluation, treatment, and prevention of vitamin D deficiency: an Endocrine Society clinical practice guideline. JCEM. 2010; 96(7):1911-30. :04 URINALYSIS, W/ MICRO (57947) Comments: PATIENT NOT FASTINGPERFORMED BY: [employer]70 [facility] [id number] Microscopic Examination See below: (Normal) Nitrite, Urine Negative (Normal) Bilirubin Negative (Normal) Urobilinogen,Semi-Qn 0.2 mg/dL (Normal) Range: 0.0-1.9 Occult Blood Negative (Normal) Ketones Negative (Normal) Glucose Negative (Normal) Protein Negative (Normal) WBC Esterase 1+ (Abnormal) Appearance Clear (Normal) Urine-Color Yellow (Normal) pH 5.5 (Normal) Range: 5.0-7.5 Specific Sherwood 1.024 (Normal) Range: 1.005-1.030 :04 CBC WITH MANUAL DIFF Comments: PATIENT NOT FASTINGPERFORMED BY: [facility] LabKnewbi[facility] Mwmqcv7210 [facility] [id number] Information: [id number] (96808) Immature Grans (Abs) 0.0 {x10E3/uL} (Normal) Range: [...] 3.77-5.28 WBC 7.2 {x10E3/uL} (Normal) Range: 4.0-10.5 59-Njj-03731:04 METABOLIC PANEL, COMPREHENSIVE Comments: PATIENT NOT FASTINGPERFORMED BY: [facility]CoEast [facility] CenterVkzzuh5458 [facility] [id number] (36388) ALT (SGPT) 13 [iU]/L (Normal) Range: 0-32 [...] mg/dL (Abnormal) Range: 65-99 :04 LIPID PANEL (68341) Comments: PATIENT NOT FASTINGPERFORMED BY: [employer] [address] [id number] LDL Cholesterol Calc 103 mg/dL (Abnormal) Range: [...] pg/mL (Normal) Range: 211-946 Comments: Performed at: [facility] [address] [id number] Director: Arnold Jefferson PhD, Phone: [phone] :[phone] CMP GAP 9 (Normal) Range: 5-15 [...] 250 nmol/L) Toxicity >100 ng/mL (250 nmol/L)Effective 201215-Aug-201201-Qig-985628:20 Metabolic Panel, Basic Comments: PATIENT NOT FASTINGPERFORMED BY: BV[facility] TelecommunicationHelen [facility]berry [facility]6370 [facility] [id number] Information: [id number] (57323) Calcium, Serum 10.2 mg/dL (Normal) Range: 8.6-10.2 [...] Glucose, Serum 99 mg/dL (Normal) Range: 65-99 8-Giz-805902:24 Microscopic Examination Comments: PATIENT NOT FASTINGPERFORMED BY: BV[facility] TelecommunicationHelen [facility]berry [facility]6370 [facility] [id number] Bacteria Few (Normal) Mucus Threads Present (Normal) Epithelial Cells (non renal) 0-10 {/hpf} (Normal) Range: 0 - 10 RBC 0-3 {/hpf} (Normal) Range: 0 - 3 WBC 6-10 {/hpf} (Abnormal) Range: 0 - 5 0-Fal-033193:24 Vitamin D Hydroxy (38801) Comments: PATIENT NOT FASTINGPERFORMED BY: BV[facility] TelecommunicationHelen [facility]6370 [facility] [id number] Vitamin D, 25-Hydroxy 21.7 ng/mL (Abnormal) Range: 30.0-100.0 Comments: Vitamin D deficiency has been defined by the Kiester ofMedicine and an Endocrine Society practice guideline as alevel of serum 25-OH vitamin D less than 20 ng/mL (1,2).The Endocrine Society went on to further define vitamin Dinsufficiency as a level between 21 and 29 ng/mL (2).1. IOM (Kiester of Medicine). 2010. Dietary reference intakes for calcium and D. [place]: The National Academies Press.2. Rachel MF, Yael MARLEY, Dunia HERRERA, et al. Evaluation, treatment, and prevention of vitamin D deficiency: an Endocrine Society clinical practice guideline. JCEM. 2010; 96(7):1911-30. 0-Efi-115888:24 VITAMIN B-12 (CYANOCOBALAMIN) Comments: PATIENT NOT FASTINGPERFORMED BY: [employer]70 iZettleFormerly [facility] [id number] (31263) Vitamin B12 431 pg/mL (Normal) Range: 211-946 :24 URINALYSIS, W/ MICRO (70910) Comments: PATIENT NOT FASTINGPERFORMED BY: [employer]70 iZettleFormerly [facility] [id number] Microscopic Examination MICRON (Normal) Comments: Microscopic follows if indicated. Microscopic Examination See below: (Normal) Nitrite, Urine Negative (Normal) Urobilinogen,Semi-Qn 0.2 mg/dL (Normal) Range: 0.0-1.9 Bilirubin Negative (Normal) Ketones Negative (Normal) Occult Blood Negative (Normal) Glucose Negative (Normal) Protein Negative (Normal) WBC Esterase Negative (Normal) Appearance Clear (Normal) pH 6.5 (Normal) Range: 5.0-7.5 Urine-Color Yellow (Normal) Specific Sherwood 1.022 (Normal) Range: 1.005-1.030 :24 CBC WITH MANUAL DIFF Comments: PATIENT NOT FASTINGPERFORMED BY: [employer]6370 iZettleFormerly [facility] [id number] Information: [id number] (43759) Immature Grans (Abs) 0.0 {x10E3/uL} (Normal) Range: [...] 3.77-5.28 WBC 7.9 {x10E3/uL} (Normal) Range: 4.0-10.5 3-Akw-317031:24 METABOLIC PANEL, COMPREHENSIVE Comments: PATIENT NOT FASTINGPERFORMED BY: [facility]CoEast [facility] CenterRnrbje4068 [facility] [id number] (96221) ALT (SGPT) 16 [iU]/L (Normal) Range: 0-32 [...] Glucose, Serum 107 mg/dL (Abnormal) Range: 65-99 7-Tzu-420394:24 TSH (75440) Comments: PATIENT NOT FASTINGPERFORMED BY: [facility] Data MinderPlains Regional Medical CenterDncxai6837 [facility] [id number] TSH 2.000 {uIU/mL} Range: 0.450-4.500 (Normal) CCP Antibodies IgG/IgA 1 {units} (Normal) Comments: PATIENT NOT FASTINGPERFORMED BY: [employer] MinderCorey Ville 0068570 [facility] [id number] BY: [employer] [id number] :39 Range: 0-19 Comments: Negative <20 Weak positive 20 - 39 Moderate positive 40 - 59 Strong positive >59 5-Ohq-425108:39 Systemic Lupus Profile Comments: PATIENT NOT FASTINGPERFORMED BY: [employer] MinderCorey [place] 0068570 [facility] [id number] BY: [employer] [id number] Information: [id number] (18928) Anti-DNA (DS) Ab Qn <1 {IU/mL} (Normal) Range: 0-9 Comments: Negative <5 Equivocal 5 - 9 Positive >9 Sjogren's Anti-SS-B 0.5 {AI} (Normal) Range: 0.0-0.9 Sjogren's Anti-SS-A 0.3 {AI} (Normal) Range: 0.0-0.9 Antichromatin Antibodies <0.2 {AI} (Normal) Range: 0.0-0.9 RA Latex Turbid. 8.5 {IU/mL} (Normal) Range: 0.0-13.9 [place] Antibodies <0.2 {AI} (Normal) Range: 0.0-0.9 SHIFT COORDINATOR Antibodies <0.2 {AI} (Normal) Range: 0.0-0.9 :27 HgA1C , Office (56524) HgA1C , Office 6.2 % (Normal) Range: 4.6 - 7.1 :27 Blood Glucose , Office (52432) Blood Glucose , Office 108 (Normal) :45 [...] D deficiency has been defined by the Kiester ofMedicine and an Endocrine Society practice guideline as alevel of serum 25-OH vitamin D less than 20 ng/mL (1,2).The Endocrine Society went on to further define vitamin Dinsufficiency as a level between 21 and 29 ng/mL (2).1. IOM (Kiester of Medicine). 2010. Dietary reference intakes for calcium and D. [place]: The National Academies Press.2. Rachel MF, Yael NC, Dunia HERRERA, et al. Evaluation, treatment, and prevention of vitamin D deficiency: an Endocrine Society clinical practice guideline. JCEM. 2010; 96(7): 1911-30.Performed at: [address] [id number] Director: Arnold Jefferson PhD, Phone: [phone] 45-Aud-741466:59 Blood Glucose , Office (16149) Blood Glucose , Office 131 (Normal) :58 HgA1C , Office (35627) HgA1C , Office 6.8 % (Normal) Range: [...] mg/dL suggests DIABETES MELLITUS per A.D.A. criteria. 80-Gct-417934:12 LIPID LDL 104 mg/dL (Normal) Range: 0-130 [...] D deficiency has been defined by the Kiester ofMedicine and an Endocrine Society practice guideline as alevel of serum 25-OH vitamin D less than 20 ng/mL (1,2).The Endocrine Society went on to further define vitamin Dinsufficiency as a level between 21 and 29 ng/mL (2).1. IOM (Kiester of Medicine). 2010. Dietary reference intakes for calcium and D. [place]: The National Academies Press.2. Rachel MF, Yael MARLEY, Dunia HERRERA, et al. Evaluation, treatment, and prevention of vitamin D deficiency: an Endocrine Society clinical practice guideline. JCEM. 2010; 96(7): 1911-30.Performed at: [address] [id number] Director: Tona Emmanuel MD, Phone: [phone] 11-Gei-160901:15 HgA1C , Office (07044) HgA1C , Office 5.8 % (Normal) Range: 4.6 - 7.1 91-Xuu-631588:15 Blood Glucose , Office (67683) Blood Glucose , Office 113 (Normal) :30 [...] D deficiency has been defined by the Kiester ofMedicine and an Endocrine Society practice guideline as alevel of serum 25-OH vitamin D less than 20 ng/mL (1,2).The Endocrine Society went on to further define vitamin Dinsufficiency as a level between 21 and 29 ng/mL (2).1. IOM (Kiester of Medicine). 2010. Dietary reference intakes for calcium and D. [place]: The National Academies Press.2. Rachel MF, Yael NC, Dunia HERRERA, et al. Evaluation, treatment, and prevention of vitamin D deficiency: an Endocrine Society clinical practice guideline. JCEM. 2010; 96(7): 1911-30.Performed at: [address] [id number] Director: Tona Emmanuel MD, Phone: [phone] 75-Lsi-812998:02 CTA NECK W/WO CONTRAST Radiology Report See [...] ologist regarding this report, please call our 67B3ohisihx line @ Dictated on 10/08/11 [address]ER,Loraribed on 10/09/11 0856 by ITS IMPORTSign by Juana Wayne MD on 10/09/11 0857 Sign by: Teo Wayne MD 51-Mks-231222:00 BILAT SCRN DIGITAL & CAD Radiology Report [...] radiologist regarding this report, please call our 73X5orhmnkt line @ Dictated on 09/18/11 1040 by Ori clifton MD,Deweybed on 09/20/11 0901 by ITS IMPORTSign by Toe Wayne MD on 09/20/11 0902 Sign by: Hema STREETER,Teo 19-Sau-68818:59 DEXA BONE DENSITY STUDY (HP) Radiology Report [...] regarding this re port, please call our 30R1pjxwqjo line @ Dictated on 09/18/11 [address]ER,Davidranscribed on 09/19/11 1416 by ITS IMPORTSign by Teo Wayne MD on 09/19/11 141 Sign by: Teo Wayne MD 03-Nqf-063799:17 HgA1C , Office (40306) HgA1C , Office 5.9 % (Normal) Range: 4.6 - 7.1 53-Twq-645823:17 Blood Glucose , Office (44554) Blood Glucose , Office 77 (Normal) :44 [...] >240 mg/dL High Risk :44 VIT D,25 48951 22.3 ng/mL (Abnormal) Range: 30.0-100.0 Comments: Vitamin D deficiency has been defined by the Kiester ofMedicine and an Endocrine Society practice guideline as alevel of serum 25-OH vitamin D less than 20 ng/mL (1,2).The Endocrine Society went on to further define vitamin Dinsufficiency as a level between 21 and 29 ng/mL (2).1. IOM (Kiester of Medicine). 2011. Dietary reference intakes for calcium and D. [place]: The National Academies Press.2. Rachel MF, Yael MARLEY, Dunia HERRERA, et al. Evaluation, treatment, and prevention of vitamin D deficiency: an Endocrine Society clinical practice guideline. JCEM. 2010; 96(7): 1911-30.Performed at: - [facility] [address] [id number] Director: Tona Emmanuel MD, Phone: [phone] :[phone] HgA1C , Office (12081) HgA1C , Office 6.6 % (Normal) Range: 4.6 - 7.1 :34 Blood Glucose , Office (10798) Blood Glucose , Office 116 (Normal) :50 [...] Range: 4.4-11.0 :50 COMP METABOLIC Comments: appt 21251 GAP 10 (Normal) Range: 5-15 CO2 26.0 [...] {uIU/mL} (Normal) Range: 0.358-3.74 :50 VIT D,25 38931 41.3 ng/mL (Normal) Range: 32.0-100.0 Comments: Effective June 18, 2011 Vitamin D, 25-Hydroxy reference intervals will be changing to 30-100. .Recent studies consider the lower li lalo of 32.0 ng/mL to be athreshold for optimal health.Pepito ANNE. J Nutr. 2004;135(2):317-22.Performed at: [facility] [employer] [id number] Director: Tona Emmanuel MD, Phone: [phone] :[phone] VITAMIN B12 806 pg/mL (Normal) Range: 254-1320 Comments: There is a low frequency possibility that high titers ofintrinsic blocking antibodies may not be completely inactivated during the reaction pretreatment stepof this testing method. If test results are i n conflictwith the clinical diagnosis, patient should be testedfor the presence of intrinsic factor blocking antibodies. 3-Iwt-636836:09 Comp. Metabolic Panel (14) Comments: PATIENT WAS FASTINGPERFORMED BY: BVfon [address] [id number] ALT (SGPT) 40 [iU]/L (Normal) Range: 0-40 [...] With LDL/HDL Comments: PATIENT WAS FASTINGPERFORMED BY: [facility] BiosciencesFormerly [facility] [id number] Ratio LDL Cholesterol Calc 74 mg/dL (Normal) [...] 0.192 {uIU/mL} Comments: PATIENT WAS FASTINGPERFORMED BY: [facility] BiosciencesFormer[facility] [id number] 09 (Abnormal) Range: 0.450-4.500 : Vitamin B12 417 pg/mL (Normal) Comments: PATIENT WAS FASTINGPERFORMED BY: [facility] BiosciencesFormer[facility] [id number] Range: 211-946 72-Ayv-434036:22 UNILAT LT DIAG DIGITAL & CAD Radiology [...] 02/23/11 151 Sign by: Teo Wayne MD 91-Owo-12523:58 CBCD,SMEAR DIFF Comments: appt 10/24/10 RED CELL [...] {uIU/mL} (Abnormal) Range: 0.358-3.74 :58 VIT D,25 11354 22.0 ng/mL (Abnormal) Comments: appt 10/24/10 Range: 32.0-100.0 Comments: Recent studies consider the lower limit of 32.0 ng/mL to tammy threshold for optimal health.Pepito ANNE. J Nutr. 2004;135(2):317-22.Performed at: [facility] [place] [address]Lab Director: Tona Emmanuel MD, Phone: [phone] :58 VITAMIN B12 285 pg/mL (Normal) Range: [...] Thin Prep VialPATIENT NOT FASTINGPERFORMED BY: [facility] [address] [id number] Information: [id number] ([id number]) Note: PAPSMR (Normal) Comments: The Pap smear [...] for malignant neoplasm of the cervixConner Montes, Boning Room Worker (ASCP) 65-Hnx-833310:26 BREAST UNILATERAL Radiology Report See Note (Normal) [...] on 08/28/10 1453 Sign by: ANTHONY PALOMARES 56-Ird-139096:58 UNILAT LT DIAG DIGITAL & CAD Radiology [...] Category 3: Probably Benign Finding - Initial Glpui-VeimbchkLwblkk-kn Suggested. A letter regarding these results will be sent tothepatient by the facility within 30 days. Approximately 10% of breast cancers are not detected by mammography. Anormal mammogram should not delay biopsy of a clinically suspiciousabnormality. Dictated on 08/24/10 1206 by ANTHONY PALOMARESTranscribed on 08/24/10 135 by ITS IMPORTSign by ANTHONY PALOMARES on 08/24/10 135 Sign by: ANTHONY PALOMARES 23-Qjj-32299:43 BILAT SCRN DIGITAL & CAD Radiology Report [...] on 08/18/101451 Sign by: ANTHONY PALOMARES MD 4-Kgk-606157:14 HgA1C , Office (26955) HgA1C , Office 6.5 % (Normal) Range: 4.6 - 7.1 0-Ner-771324:14 Blood Glucose , Office (99132) Blood Glucose , Office 176 (Normal) :30 [...] CREAT 161.2 mg/dL (Normal) : VIT D,25 02869 27.7 ng/mL Range: 32.0-100.0 30 (Abnormal) Comments: Recent studies consider the lower limit of 32.0 ng/mL to tammy threshold for optimal health.Pepito ANNE. J Nutr. 2004;135(2):317- 22.Performed at: - [facility] [address]Lab Director: Tona Emmanuel MD, Phone: [phone] : VITAMIN B12 449 pg/mL (Normal) Range: [...] {units} (Normal) Comments: PATIENT NOT FASTINGPERFORMED BY: [employer] Ohpwzi9670 [facility] [id number] BY: [address] [id number] 0:44 Range: 0-19 Comments: Negative <20 Weak positive 20 - 39 Moderate positive 40 - 59 Strong positive >59 Comment: SPRCS (Normal) Comments: PATIENT NOT FASTINGPERFORMED BY: [employer] GoVoluntr [facility] [id number] BY: [address] [id number] 0:44 Comments: Effective April 25, 2009 order code 382843 CCP IgGAntibodies has been replaced due to an updated reagentversion 3.1. For this reason [facility] has provided youwith a new order code 790827 CCP Antibodies IgG/IgA. 32-Wha-748666:44 Vitamin D Hydroxy Comments: PATIENT NOT FASTINGPERFORMED BY: [employer] Yqkkdf8438 [facility] [id number] BY: [address] [id number] ([id number]) Vitamin D, 25-Hydroxy 30.9 ng/mL (Abnormal) Range: 32.0-100.0 Comments: Recent studies consider the lower limit of 32.0 ng/mL to be athreshold for optimal health.Pepito ANNE. J Nutr. 2004;135(2):317-22. 04-Uia-908510:44 SED RATE ERYTHROCYTE Comments: PATIENT NOT FASTINGPERFORMED BY: BVfon TelecommunicationGeorge Ville 7578970 [facility] [id number] BY: [address] [id number] ([id number]) Sedimentation Rate-Westergren 4 mm/h (Normal) Range: 0-30 73-Wkt-041474:44 C-REACTIVE PROTEIN Comments: PATIENT NOT FASTINGPERFORMED BY: [place] [id number] [facility] [id number] BY: [address] [id number] (38348) C-Reactive Protein, Quant 2.5 mg/L (Normal) Range: 0.0-4.9 96-Lnj-117627:44 TSH (32860) Comments: PATIENT NOT FASTINGPERFORMED BY: [address] [id number] BY: [address] [id number] TSH 2.050 {uIU/mL} (Normal) Range: 0.450-4.500 86-Pmz-041969:44 RHEUMATOID FACTOR-QUANT Comments: PATIENT NOT FASTINGPERFORMED BY: [place] [id number] [facility] [id number] BY: [address] [id number] (49711) RA Latex Turbid. 8.4 {IU/mL} (Normal) Range: 0.0-13.9 93-Buv-830564:44 MELI (ANTINUCLEAR ANTIBODY) Comments: PATIENT NOT FASTINGPERFORMED BY: [facility]6370 [facility] [id number] BY: [address] [id number] (06684) MELI Direct Negative (Normal) 36-Smp-345539:44 CBC WITH MANUAL DIFF Comments: PATIENT NOT FASTINGPERFORMED BY: [place] [address]38870 [facility] [id number] BY: [address] [id number] Inf ormation: ADD [id number] AND DRAW FEE 99 2675 (24688) Immature Grans (Abs) 0.0 {x10E3/uL} (Normal) Range: [...] 3.80-5.10 WBC 6.8 {x10E3/uL} (Normal) Range: 4.0-10.5 70-Nyd-972580:44 METABOLIC PANEL, Comments: PATIENT NOT FASTINGPERFORMED BY: CB [facility] Ezrgla9250 [facility] [id number] BY: BN [facility] [address] [id number] [facility] (46264) ALT (SGPT) 21 [iU]/L (Normal) Range: 0-40 [...] (Abnormal) Range: 65-99 :33 HgA1C , Office (05497) HgA1C , Office 6.8 % (Normal) Range: 4.6 - 7.1 :33 Blood Glucose , Office (82725) Blood Glucose , Office 135 (Normal) :22 [...] CHOL 157 mg/dL (Normal) Comments: <200 mg/dL Koqbzpyqo306-861 mg/dL Borderline>240 mg/dL High Risk :22 LIVER ALB 3.5 g/dL (Normal) Range: 3.4-5.0 ALK P 97 U/L (Normal) Range: 50-136 ALT 21 U/L (Normal) Range: 12-78 AST 16 U/L (Normal) Range: 15-37 D BILI 0.12 mg/dL (Normal) Range: 0.00-0.30 T BILI 0.40 mg/dL (Normal) Range: 0.00-1.00 T PROT 6.5 g/dL (Normal) Range: 6.4-8.2 :22 TSH 1.54 {uIU/mL} Range: 0.358-3.74 (Normal) :22 VIT D,25 63444 36.8 ng/mL (Normal) Range: 32.0-100.0 Comments: Recent studies consider the lower limit of 32.0 ng/mL to tammy threshold for optimal health.Pepito ANNE. J Nutr. 2004;135(2):317-22.Performed at: [facility] [employer] [id number] 296Lab Director: Tona Emmanuel MD, Phone: [phone] :[phone] VITAMIN B12 264 pg/mL (Normal) Range: 254-1320 Comments: There is a low frequency possibility that high titers ofintrinsic blocking antibodies may not be completelyinactivated during the reaction pretreatment stepof this testing method. If test results are in conflictwith the clinical diagnosis, patient should be testedfor the presence of intrinsic factor blocking antibodies. : Amylase, Serum 92 U/L (Normal) Comments: PERFORMED BY: [employer] [id number] Range: 31-124 58-Xyz-734031:34 CBC With Differential/Platelet Comments: PERFORMED BY: [facility]CoEast [facility] CenterYdhneu1734 [facility] [id number] Baso (Absolute) 0.0 {x10E3/uL} (Normal) Range: 0.0-0.2 [...] 3.80-5.10 WBC 7.5 {x10E3/uL} (Normal) Range: 4.0-10.5 44-Blp-692757:34 Comp. Metabolic Panel (14) Comments: PERFORMED BY: [facility]CoEast [facility] CenterPpsuab8759 [facility] [id number] ALT (SGPT) 18 [iU]/L (Normal) Range: 0-40 [...] Serum 57 U/L (Normal) Comments: PERFORMED BY: [facility] Irscyv3571 [facility] [id number] 13:34 Range: 0-59 03-Feb-20109:00 GALLBLADDER Radiology Report See Note (Normal) Comments: Exam Number: [id number] CLINICAL:Epigastric pain and bloating. ABDOMINAL ULTRASOUND TECHNIQUE:Transabdominal [...] hydronephrosis,etiology indeterminate. Reported By: KATHRYN MUNOZ M.D. 9-Cws-101888:19 CBC WITH MANUAL DIFF Comments: PATIENT NOT FASTINGPERFORMED BY: COR[facility] Umuird8205 [facility] [id number] Information: [id number] (32963) Baso (Absolute) 0.1 {x10E3/uL} (Normal) Range: 0.0-0.2 [...] 3.80-5.10 WBC 9.9 {x10E3/uL} (Normal) Range: 4.0-10.5 3-Twm-842565:19 METABOLIC PANEL, COMPREHENSIVE Comments: PATIENT NOT FASTINGPERFORMED BY: [facility]CoEast [facility] CenterDetyui7159 [facility] [id number] (34411) ALT (SGPT) 19 [iU]/L (Normal) Range: 0-40 [...] Report See Note (Normal) Comments: Exam Number: [id number] CLINICAL:This is a 69-year-old female patient with [...] as discussed above. Reported By: TEO WAYNE 0-Zna-793470:12 HgA1C , Office (77929) HgA1C , Office 7.1 % (Normal) Range: 4.6 - 7.1 7-Zid-597864:12 Blood Glucose , Office (35827) Blood Glucose , Office 129 (Normal) 29-Dec-20099:45 [...] CHOL 155 mg/dL (Normal) Comments: <200 mg/dL Byjwjmxjz111-637 mg/dL Borderline>240 mg/dL High Risk :45 VIT D,25 32752 42.5 ng/mL (Normal) Range: 32.0-100.0 Comments: Recent studies consider the lower limit of 32.0 ng/mL to tammy threshold for optimal health.Pepito ANNE. J Nutr. 2004;135(2):317-22.Performed at: - [facility] [id number] Director: Tona Emmanuel MD :53 LIPID HDL [...] CHOL 128 mg/dL (Normal) Comments: <200 mg/dL Jrkgapuiw489-879 mg/dL Borderline>240 mg/dL High Risk :53 MICROALB:CRE UR MALB:CREAT 19.1 {mg/g_CRE} (Normal) MICROALBUMIN,UR 29.1 mg/L (Normal) UR CREAT 152.0 mg/dL (Normal) :53 TSH 0.93 {uIU/mL} (Normal) Range: 0.358-3.74 :53 VIT D,25 05715 22.7 ng/mL (Abnormal) Range: 32.0-100.0 Comments: Recent studies consider the lower limit of 32.0 ng/mL to tammy threshold for optimal health.Pepito ANNE. J Nutr. 2004;135(2):317-22.Performed At: [facility] [place], [place] [id number] :53 VITAMIN B12 337 pg/mL (Normal) Range: 254-1320 :09 HgA1C , Office (07349) HgA1C , Office 7.1 % (Normal) Range: 4.6 - 7.1 :09 Blood Glucose , Office (41194) Blood Glucose , Office 108 (Normal) 5-Xii-053190:33 KNEE,4 OR MORE VIEWS (MT) Radiology Report See Note (Normal) Comments: Exam Number: [id number] CLINICAL:Pain X-RAY EXAMINATION RIGHT KNEE TECHNIQUE:Three view(s) [...] Report See Note (Normal) Comments: Exam Number: [id number] CLINICAL:Pain X-RAY EXAMINATION: RIGHT TIBIA AND FIBULA [...] (MT) Radiology See Note Comments: Exam Number: [id number] CLINICAL:Pain X-RAY EXAMINATION: RIGHT FEMUR TECHNIQUE:Two views [...] Visualized femur. Reported By: RAYMOND ARRIAGA M.D. 1-Slb-404256:43 UNILAT LT DIAG DIGITAL & CAD Radiology Report See Note (Normal) Comments: Exam Number: [id number] MAMMOGRAM, UNILATERAL LEFT DIAGNOSTIC DIGITAL AND CAD HISTORYAbnormal mammogram, left breast. TECHNIQUEFull field digital images were obtained in left true lateral, rolledcranio caudal, and spot mediolateral oblique and craniocaudalprojections. CAD images were reviewed. The current study is compared to the examinations of March 12, 2006,and June 21, 2009. FINDINGSThere is a mtjugste-wl-mnqkvi extent of fibroglandular parenchymapresent. There is no [...] wereal so examined with computer-aided detection software ([employer]aro, [employer].). Reported By: ANTHONY PALOMARES M.D. 72-Ury-827564:04 BILAT SCRN DIGITAL & CAD Radiology Report See Note (Normal) Comments: Exam Number: [id number] MAMMOGRAM, BILATERAL SCREENING DIGITAL AND CAD HISTORYRoutine [...] werealso examined with computer- aided detection software ([facility] Reported By: ANTHONY PALOMARES M.D. 03-Rqn-283839:03 DEXA BONE DENSITY STUDY () Radiology Report See Note (Normal) Comments: Exam Number: [id number] BONE DENSITOMETRY HISTORYOsteopenia. TECHNIQUE Bone densitometry of the lumbar spine and both hips is now beingperformed. The best criteria for evaluation of osteoporosis is theT-value, which represents the comparison of the patient's bone mass flako expected peak bone mass. For most patients, the mean T-value of G4ykxbeyu L4 is used to evaluate the lumbar spine. To evalua te the hip,the lower T-value of the femoral neck or total hip is used. FINDINGSIn this patient, the mean T-value of L1 through L4 is 0.3 which isnormal. Bone mineral density is measured at 18.3% greate r than cv1044.Digital lateral view for evaluation of vertebral deformity [...] within normallimits. Reported By: ANTHONY PALOMARES M.D. 42-Bov-025070:09 BRAIN/HEAD W/WO CONTRAST Radiology Report See Note (Normal) Comments: Exam Number: [id number] CLINICAL:69 year old female with altered mental [...] CREAT 123.4 mg/dL (Normal) 07-Jun-2009 VIT D,25 37152 19.7 ng/mL Range: 32.0-100.0 9:02 (Abnormal) Comments: Recent studies consider the lower limit of 32.0 ng/mL to tammy threshold for optimal health.Pepito ANNE. J Nutr. 2004;135(2):317- 22.Performed At: [facility] [place], [place] [id number] 07-Jun-2009 VITAMIN B12 328 pg/mL (Normal) Range: 254-1320 9:02 11-Feb-2009 Homocyst(e)ine, Plasma 9.8 umol/L (Normal) Comments: PERFORMED BY: [employer] [id number] 14:28 Range: 0.0-15.0 11-Feb-2009 Methylmalonic Acid, 336 nmol/L (Normal) Comments: PERFORMED BY: [employer] [id number] 14:28 Serum Range: 73-376 Comments: The reference range for methylmalonic acid has been set at +3sd abovethe mean for healthy blood bank donors. In the clinical assessment ofpatients with megaloblastic anemias a cutoff of +3sd provides gr eaterspecificity in the diagnosis of the vitamin deficiency states,despite the sacrifice of some sensitivity. 11-Feb-2009 TSH 2.700 {uIU/mL} Comments: PERFORMED BY: [facility] [address] [id number] 14:28 (Normal) Range: 0.450-4.500 11-Feb-2009 Vitamin B12 231 pg/mL (Normal) Comments: PERFORMED BY: [employer] [address] [id number] 14:28 Range: 211-911 3-Ooi-718601:09 HAND,MIN 3 VIEWS (MT) Radiology Report See Note (Normal) Comments: Exam Number: [id number] RIGHT WRIST CLINICAL DATAFell and injured the [...] osteoarthritis right hand. Reported By: FERNANDO TUCKER 8-Blf-378044:09 WRIST,MIN 3 VIEWS (MT) Radiology Report See Note (Normal) Comments: Exam Number: [id number] RIGHT WRIST CLINICAL DATAFell and injured the [...] degenerative osteoarthritis right hand. Reported By: FERNANDO TUCKRE 03-Feb-20098:42 METABOLIC PANEL, COMPREHENSIVE Comments: PATIENT WAS FASTINGPERFORMED BY: [facility]CoEast [facility] CenterZegksd7611 [facility] [id number] 96301) A/G Ratio 1.9 (Normal) Range: 1.1-2.5 Albumin, [...] 141 mmol/L (Normal) Range: 135-145 :42 TSH (17538) Comments: PATIENT WAS FASTINGPERFORMED BY: [employer] Fwqain1967 [facility] [id number] TSH 4.980 {uIU/mL} (Abnormal) Range: 0.450-4.500 :42 MICROALBUMIN: CREATININE RATIO Comments: PATIENT WAS FASTINGPERFORMED BY: [employer] [facility] MinderEast Orange VA Medical CenterRtehsv0620 [facility] [id number] (01322) AND (98664) Creatinine, Urine 130.9 mg/dL (Normal) Range: 15.0-278.0 Microalb/Creat Ratio 66.4 {ug/mg_creat} (Abnormal) Range: 0.0-30.0 Microalbumin, Urine 86.9 ug/mL (Abnormal) Range: 0.0-17.0 :42 LIPID PANEL (63126) Comments: PATIENT WAS FASTINGPERFORMED BY: [employer] Pmqirw7621 [facility] [id number] Cholesterol, Total 148 mg/dL (Normal) Range: 100-199 HDL Cholesterol 42 mg/dL (Normal) Comments: According to ATP-III Guidelines, HDL-C >59 mg/dL is considered anegative risk factor for CHD. LDL Cholesterol Calc 78 mg/dL (Normal) Range: 0-99 LDL/HDL Ratio 1.9 {ratio_units} (Normal) Range: 0.0-3.2 Triglycerides 141 mg/dL (Normal) Range: 0-149 VLDL Cholesterol Priscilla 28 mg/dL (Normal) Range: 5-40 :42 CBC WITH MANUAL DIFF (42286) Comments: PATIENT WAS FASTINGClinical Information: ADD DRAW FEE 757670 ADD J 21566 PERFORMED BY: [facility]CoBi[facility] Inptsp5120 [facility] [id number] Baso (Absolute) 0.1 {x10E3/uL} (Normal) Range: 0.0-0.2 [...] B-12 (CYANOCOBALAMIN) Comments: PATIENT WAS FASTINGPERFORMED BY: [facility]CoEast Orange [facility] Medical CenterOkimyl9112 [facility] [id number] (16732) Vitamin B12 232 pg/mL (Normal) Range: 211-911 3-Qee-005324:06 Blood Glucose , Office (83934) Blood Glucose , Office 155 (Normal) :27 [...] (Normal) Range: 0.34-4.82 :27 HgA1C , Office (12810) Comments: done>Wf. HgA1C , Office 6.2 % (Normal) Range: 4.6 - 7.1 :27 Blood Glucose , Office (68645) Comments: done>Wf. Blood Glucose , Office 152 [...] for patient's is the eGFRmultiplied by 1.212. [facility] Laboratory uses the abbreviated Modification of Diet [...] Disease W/O Kidney Disease>/= 90 Stage One Jnuxoz27 - 89 Stage Two Suspect Decrease d [...] T PROT 7.3 g/dL (Normal) Range: 6.4-8.2 1-Hls-316514:55 LIPID CHOL 287 mg/dL (Abnormal) Comments: <200 [...] mg/dL VLDL 50 mg/dL (Abnormal) Range: 40 9-Kap-365614:55 MICROALB:CRE UR MALB:CREAT 28.3 {mg/g_CRE} (Normal) MICROALBUMIN,UR 41.7 mg/L (Normal) UR CREAT 147.6 mg/dL (Normal) :55 TSH 5.53 {uIU/mL} (Abnormal) Range: 0.34-4.82 :25 TSH 0.16 {uIU/mL} (Abnormal) Range: 0.34-4.82 :31 HgA1C , Office (50727) Comments: done HgA1C , Office 6.5 % (Normal) Range: 4.6 - 7.1 :31 Blood Glucose , Office (79811) Comments: done Blood Glucose , Office 128 (Normal) :01 TSH 5.15 {uIU/mL} (Abnormal) Range: 0.34-4.82 :12 HgA1C , Office (97127) Comments: done HgA1C , Office 6.2 % (Normal) Range: 4.6 - 7.1 :12 Blood Glucose , Office (03610) Comments: done Blood Glucose , Office 187 [...] Serum 117 ng/mL (Normal) Comments: PERFORMED BY: [employer] BiosciencesFormer[facility] [id number] Range: 10-291 :33 Iron and TIBC Comments: PERFORMED BY: [employer] BiosciencesFormer[facility] [id number] Iron Bind.Cap.(TIBC) 304 ug/dL (Normal) Range: 250-450 Iron Saturation 26 % (Normal) Range: 15-55 Iron, Serum 78 ug/dL (Normal) Range: 35-155 UIBC 226 ug/dL (Normal) Range: 150-375 : Vitamin B12 412 pg/mL (Normal) Comments: PERFORMED BY: [employer] BiosciencesFormer[facility] [id number] 33 Range: 211-911 :56 LIPID CHOL 222 [...] (Normal) Range: 6.4-8.2 :07 HgA1C , Office (89827) Comments: done HgA1C , Office 5.9 % (Normal) Range: 4.6 - 7.1 :07 Blood Glucose , Office (39433) Comments: done Blood Glucose , Office 132 [...] mg/dL (Abnormal) Range: 34-200 Comments: Performed At: [address] [id number] :08 IRON+TIBC IRON SATURATION 17.9 % (Normal) [...] mg/dL (Normal) Range: 34-200 Comments: Performed At: [address] [id number] :56 IRON+TIBC IRON SATURATION 17.1 % (Normal) [...] 1.49 INDETERMINANT > OR = 1.50 SUGGEST MA :05 CPK TOTAL 149 U/L (Normal) Comments: Precautions*: NOT APPLICABLEINDICATE CK '1', '2', '3', OR 'R' FOR RANDOM: 2 Range: 215 :05 CPKMB 1.1 ng/mL (Normal) Comments: Precautions*: NOT APPLICABLEINDICATE CK '1', '2', '3', OR 'R' FOR RANDOM: 2 Range: 0.0-5.0 Comments: CK-MB and RI Interpretation MB Relative Index Non-AMI <or= 5 NA Indeterminate > 5 <or= 4 AMI > 5 > 4 5-Wpo-543391:05 TROPONIN-I < 0.04 ng/mL (Normal) Comments: Precautions*: NOT APPLICABLEINDICATE CK '1', '2', '3', OR 'R' FOR RANDOM: 2 Comments: TROPONIN-I EXPECTED VALUES < 0.50 NEGATIVE 0.50 - 1.49 INDETERMINANT > OR = 1.50 SUGGEST MA :15 PRO TIME Comments: Precautions*: NOT APPLICABLE INR 1.0 (Normal) PROTIME 12.6 s (Normal) Range: 11.7-13.3 :15 TROPONIN-I < 0.04 ng/mL (Normal) Comments: Precautions*: NOT APPLICABLE Comments: TROPONIN-I EXPECTED VALUES < 0.50 NEGATIVE 0.50 - 1.49 INDETERMINANT > OR = 1.50 SUGGEST MA :00 BMP Comments: COMMENTS: FEARONPrecautions*: NOT APPLICABLEINDICATE [...] 1.49 INDETERMINANT > OR = 1.50 SUGGEST MA :48 HgA1C , Office (51510) HgA1C , Office 6.4 % (Normal) Range: 4.6 - 7.1 :48 Blood Glucose , Office (63008) Blood Glucose , Office 113 (Normal) Plan [...] Indication: Double vision Double vision : Reviewed Flow Coordinator Letter Indication: Double vision Fatty liver : [...] BMI 36.0-36.9,adult Right hip pain : Reviewed Flow Coordinator Letter Indication: Right hip pain Right hip [...] (monoclonal gammopathy of unknown significance) : Reviewed Flow Coordinator Letter- stable and discharged from onc Indication: [...] Fall down steps, initial encounter : Reviewed Flow Coordinator Letter Indication: Fall down steps, initial encounter [...] infarction, unspecified Cerebral infarction, unspecified : Reviewed Flow Coordinator Letter Indication: Cerebral infarction, unspecified Upper respiratory [...] Planned Observations CBC, PLATELETS & AUT DIFF (96784)Indication: Other vitamin B12 deficiency anemia On: :17 Request TSH (93614)Indication: Abnormal TSH On: :38 Request T4, FREE (THYROXINE) (70405)Indication: Abnormal TSH On: :38 Request T3, FREE (TRIDOTHYRONINE) (97683)Indication: Abnormal TSH On: :38 Request ANTI-LIVER/KIDNEY MICROSOMAL ANTIBODY (36514)Indication: Elevated liver enzymes On: 56-Cby-234645:34 Request TSH (72654)Indication: Abnormal TSH On: :31 Request T4, FREE (THYROXINE) (64973)Indication: Abnormal TSH On: :31 Request T3, FREE (TRIDOTHYRONINE) (15635)Indication: Abnormal TSH On: 67-Ixi-370109:31 Request BETA-2 MICROGLOBULIN (80190)Indication: Abnormal blood chemistry On: 69-Wuj-510810:08 Request Urinalysis, Office (56706)Indication: Urinary frequency On: 24-Gny-843577:38 Request CBC WITH MANUAL DIFF (05185)Indication: Therapeutic drug monitoring On: :57 Request Metabolic Panel, Basic (05035)Indication: Therapeutic drug monitoring On: :57 Request Methymalonic Acid, Serum (04760)Indication: Vitamin B 12 deficiency On: 48-Hel-830281:51 Request CALCIFIDIOL (99347) VIT D 25Indication: Vitamin D deficiency, unspecified On: 49-Shv-914461:45 Request LIPID PANEL (45780)Indication: Other and unspecified hyperlipidemia On: 39-Zhq-327499:45 Request CALCIFIDIOL (65090) VIT D 25Indication: Uncontrolled type II diabetes mellitus On: :46 Request TSH (49815)Indication: Uncontrolled type II diabetes mellitus On: :46 Request URINALYSIS, W/ MICRO (19704)Indication: Uncontrolled type II diabetes mellitus On: :46 Request MICROALBUMIN: CREATININE RATIO (09798) AND (90002)Indication: Uncontrolled type II diabetes mellitus On: :46 Request METABOLIC PANEL, COMPREHENSIVE (39499)Indication: Uncontrolled type II diabetes mellitus On: :46 Request LIPID PANEL (81713)Indication: Uncontrolled type II diabetes mellitus On: :45 Request CBC W/AUTO DIFF WBC (29388)Indication: Uncontrolled type II diabetes mellitus On: :45 Request Rapid Flu (06585 x 2)Indication: Flu-like symptoms On: 68-Amg-538043:12 Request VITAMIN B-12 (CYANOCOBALAMIN) (60383)Indication: Vitamin B 12 deficiency On: 72-Vfm-804397:45 Request FECAL OCCULT- Tubes sent home (85796)Indication: Encounter for screening for malignant neoplasm of colon (Renamed from Special screening for malignant neoplasms, colon) On: 38-Cse-840368:35 Request THYROXINE FREE (76376)Indication: Tachycardia On: 2-Qos-618502:04 Request FREE TRIDOTHYRONINE (T3) (40303)Indication: Tachycardia On: 5-Cpa-486149:04 Request TSH (THYROID STIMULATING HORMONE) (99773)Indication: Tachycardia On: 9-Zup-310434:04 Request serum immunofixation (21044)Indication: MGUS (monoclonal gammopathy of unknown significance) On: 53-Zav-940835:14 Request urine immunofixation (76116)Indication: MGUS (monoclonal gammopathy of unknown significance) On: 47-Nwq-959768:14 Request serum free light chains (48584)Indication: MGUS (monoclonal gammopathy of unknown significance) On: 41-Gcb-432035:14 Request CBC W/AUTO DIFF WBC (03371)Indication: Diabetes mellitus type 2, controlled On: 57-Hgc-637075:13 Request MICROALBUMIN: CREATININE RATIO (98469) AND ([id number])Indication: Diabetes mellitus type 2, controlled On: 45-Hom-639080:13 Request METABOLIC PANEL, COMPREHENSIVE (62230)Indication: Diabetes mellitus type 2, controlled On: 70-Roi-447574:13 Request LIPID PANEL (08362)Indication: Mixed hyperlipidemia On: 35-Lau-722619:13 Request VITAMIN B-12 (CYANOCOBALAMIN) (60276)Indication: Other vitamin B12 deficiency anemia On: :12 Request CBC (AUTO) ([id number])Indication: Other vitamin B12 deficiency anemia On: 84-Dsz-057997:12 Request Vitamin D Hydroxy (27982)Indication: Vitamin D deficiency, unspecified On: 75-Wvh-351292:12 Request LIPID PANEL (44198)Indication: Mixed hyperlipidemia On: 9-Mhd-184781:42 Request METABOLIC PANEL, COMPREHENSIVE (82262)Indication: Benign essential hypertension (Renamed from Benign essential HTN) On: 8-Xwk-618797:41 Request MICROALBUMIN: CREATININE RATIO ([id number]) AND (07462)Indication: Benign essential hypertension (Renamed from Benign essential HTN) On: :41 Request SPEP (52811)Indication: Anemia, unspecified On: 96-Sfd-591293:17 Request UPEP (77963)Indication: Anemia, unspecified On: 47-Epk-451005:17 Request CBC W/AUTO DIFF WBC ([id number])Indication: Iron (Fe) deficiency anemia On: 7-Hhh-253346:38 Request TSH ([id number])Indication: Acquired hypothyroidism On: 7-Cpa-164154:38 Request TSH ([id number])Indication: Acquired hypothyroidism On: 58-Ruq-973399:34 Request SPEP (46025)Indication: Iron (Fe) deficiency anemia On: 49-Zcu-821423:34 Request UPEP (98659)Indication: Iron (Fe) deficiency anemia On: 60-Lft-621938:34 Request IRON BINDING CAPACITY (TIBC) ([id number])Indication: Iron (Fe) deficiency anemia On: 35-Kom-508318:34 Request FERRITIN (04377)Indication: Iron (Fe) deficiency anemia On: 67-Ljo-616982:34 Request IRON ([id number])Indication: Iron (Fe) deficiency anemia On: 69-Bqx-326637:34 Request CBC, PLATELETS & AUT DIFF ([id number])Indication: Other vitamin B12 deficiency anemia On: :34 Request VITAMIN B-12 (CYANOCOBALAMIN) (94058)Indication: Other vitamin B12 deficiency anemia On: 26-Ukg-578388:33 Request Hemoglobin Glyclated (HGB A1C) (29202)Indication: Diabetes mellitus type 2, controlled On: 36-Hwg-028014:33 Request CBC, PLATELETS & AUT DIFF (07152)Indication: Other vitamin B12 deficiency anemia On: :31 Request VITAMIN B-12 (CYANOCOBALAMIN) ([id number])Indication: Other vitamin B12 deficiency anemia On: :30 Request METABOLIC PANEL, COMPREHENSIVE (21178)Indication: Benign essential hypertension (Renamed from Benign essential HTN) On: :30 Request LIPID PANEL (22803)Indication: Other and unspecified hyperlipidemia On: :30 Request Vitamin D Hydroxy (59591)Indication: Vitamin D deficiency, unspecified On: : Request EZMTV-IYHJXQZDQNN-AYSLX ([id number])Indication: Fatty liver On: : Request EHTWL-XEVOYMJAXUM-ZKLPW ([id number])Indication: Fatty liver On: 56-Koo-827809:24 Request LIPID PANEL (25820)Indication: Mixed hyperlipidemia On: :23 Request TSH ([id number])Indication: Acquired hypothyroidism On: 82-Yfg-108439:23 Request MICROALBUMIN: CREATININE RATIO (78255) AND (44776)Indication: Diabetes mellitus type 2, controlled On: 41-Pqq-603730:23 Request METABOLIC PANEL, COMPREHENSIVE (42472)Indication: Diabetes mellitus type 2, controlled On: 28-Hex-597369:23 Request Vitamin D Hydroxy (09747)Indication: Vitamin D deficiency, unspecified On: 76-Vun-391744:23 Request CBC, PLATELETS & AUT DIFF ([id number])Indication: Other vitamin B12 deficiency anemia On: 66-Epq-965465:20 Request VITAMIN B-12 (CYANOCOBALAMIN) (68956)Indication: Other vitamin B12 deficiency anemia On: 26-Oum-192244:20 Request Vitamin D Hydroxy (57881)Indication: Vitamin D deficiency, unspecified On: 46-Uvq-059645:38 Request VITAMIN B-12 (CYANOCOBALAMIN) (02470)Indication: Other vitamin B12 deficiency anemia On: :38 Request CBC W/AUTO DIFF WBC (38313)Indication: Other vitamin B12 deficiency anemia On: 44-Yrj-060973:37 Request TSH (59673)Indication: Acquired hypothyroidism On: 21-Yau-208272:37 Request LIPID PANEL (11097)Indication: Mixed hyperlipidemia On: :37 Request ZZJVB-YDDQDWNHKHE-EXRLI ([id number])Indication: Fatty liver On: :08 Request PTT (Activated Partial Thromboplastin Time) (37198)Indication: Fatty liver On: : Request PT (Prothrobim Time) (50022)Indication: Fatty liver On: :08 Request Vitamin D Hydroxy (67035)Indication: Vitamin D deficiency, unspecified On: 52-Jkl-641871: Request VITAMIN B-12 (CYANOCOBALAMIN) (80026)Indication: Other vitamin B12 deficiency anemia On: : Request CBC W/AUTO DIFF WBC (57120)Indication: Diabetes mellitus type 2, controlled On: : Request METABOLIC PANEL, COMPREHENSIVE (51649)Indication: Diabetes mellitus type 2, controlled On: 70-Ixa-463187: Request LIPID PANEL (22093)Indication: Mixed hyperlipidemia On: : Request LIPID PANEL (24520)Indication: HYPERTENSION, NOS On: 0-Djn-647427:40 Request CBC WITH MANUAL DIFF ([id number])Indication: HYPERTENSION, NOS On: 0-Xkp-437483:40 Request METABOLIC PANEL, COMPREHENSIVE (38529)Indication: HYPERTENSION, NOS On: :40 Request FECAL OCCULT- Tubes sent home (04543)Indication: Anemia, unspecified On: 79-Wup-223800:38 Request IRON ([id number])Indication: Anemia, unspecified On: :38 Request CBC WITH MANUAL DIFF ([id number])Indication: HYPERTENSION, NOS On: 7-Haa-528997:29 Request METABOLIC PANEL, COMPREHENSIVE (07752)Indication: Uncontrolled type II diabetes mellitus On: 5-Ozf-389531:28 Request TSH (THYROID STIMULATING HORMONE) (93634)Indication: Acquired hypothyroidism On: 33-Orl-779395:08 Request HgA1C , Office (83398)Indication: Diabetes mellitus type 2, controlled On: 68-Qnc-685586:55 Request VITAMIN B-12 (CYANOCOBALAMIN) (43726)Indication: Other vitamin B12 deficiency anemia On: 3-Wah-213422:17 Request LIPID PANEL (75701)Indication: Other and unspecified hyperlipidemia On: :17 Request MICROALBUMIN: CREATININE RATIO (09784) AND (04538)Indication: Uncontrolled type II diabetes mellitus On: : Request METABOLIC PANEL, COMPREHENSIVE (97487)Indication: Uncontrolled type II diabetes mellitus On: : Request HgA1C , Office (92184)Indication: Diabetes mellitus type 2, controlled On: :25 Request LIPID PANEL (62380)Indication: Other and unspecified hyperlipidemia On: : Request METABOLIC PANEL, COMPREHENSIVE (76512)Indication: Diabetes mellitus type 2, controlled On: : Request MICROALBUMIN: CREATININE RATIO (60112) AND (39794)Indication: Diabetes mellitus type 2, controlled On: : Request VITAMIN B-12 (CYANOCOBALAMIN) (03026)Indication: Other vitamin B12 deficiency anemia On: : Request CBC, PLATELETS & AUT DIFF (70311)Indication: Other vitamin B12 deficiency anemia On: :11 Request Vitamin D Hydroxy (71701)Indication: Vitamin D deficiency, unspecified On: 91-Aob-945823:10 Request Blood Glucose , Office (72780)Indication: Diabetes mellitus type 2, controlled On: :29 Request LIPID PANEL (57208)Indication: Other and unspecified hyperlipidemia On: :26 Request Vitamin D Hydroxy (81467)Indication: Vitamin D deficiency, unspecified On: : Request VITAMIN B-12 (CYANOCOBALAMIN) (69785)Indication: Other vitamin B12 deficiency anemia On: : Request METABOLIC PANEL, COMPREHENSIVE (01432)Indication: Benign essential hypertension (Renamed from Benign essential HTN) On: : Request MICROALBUMIN: CREATININE RATIO (83858) AND (76869)Indication: Uncontrolled type II diabetes mellitus On: : Request Sputum Culture (40740)Indication: Chronic cough On: 4-Bhv-956465:58 Request RANI CULTURE-OTHER (63058)Indication: Sore throat On: 57-Ckv-928882:06 Request Urinalysis, Office (65626)Indication: Abnormal urine On: :14 Request RANI CULTURE-OTHER (46568)Indication: Abnormal urine On: :14 Request CCP ANTIBODY (50080)Indication: History of poliomyelitis (Renamed from H/O acute poliomyelitis) On: : Request ANTI-Sm (ANTI [place] ANTIBODY) (62736) test code [id number]: History of poliomyelitis (Renamed from H/O acute poliomyelitis) On: : Request RHEUMATOID FACTOR-QUANT (96721) test code [id number]: History of poliomyelitis (Renamed from H/O acute poliomyelitis) On: : Request Vitamin D Hydroxy (82601)Indication: Vitamin D deficiency, unspecified On: 53-Qwt-210285:15 Request LIPID PANEL (82286)Indication: Other and unspecified hyperlipidemia On: :15 Request TSH (69371)Indication: Acquired hypothyroidism On: 31-Hbt-044211:15 Request METABOLIC PANEL, COMPREHENSIVE (80039)Indication: Diabetes mellitus type 2, controlled On: 69-Svx-306669:14 Request VITAMIN B-12 (CYANOCOBALAMIN) (57691)Indication: Other vitamin B12 deficiency anemia On: 69-Mbp-311529:08 Request MICROALBUMIN: CREATININE RATIO (84368) AND (70641)Indication: Uncontrolled type II diabetes mellitus On: 79-Vwa-038755:30 Request METABOLIC PANEL, COMPREHENSIVE (00847)Indication: Uncontrolled type II diabetes mellitus On: 08-Tym-811170:30 Request TSH (55021)Indication: Acquired hypothyroidism On: 13-Zgx-482797:30 Request Vitamin D Hydroxy (45175)Indication: Vitamin D deficiency, unspecified On: 12-Ynp-911384:30 Request LIPID PANEL (71638)Indication: Other and unspecified hyperlipidemia On: 50-Ihq-520335:29 Request LIPID PANEL (35734)Indication: Other and unspecified hyperlipidemia On: 51-Eev-153224:51 Request TSH (52274)Indication: Acquired hypothyroidism On: 62-Whg-723892:50 Request Vitamin D Hydroxy (01749)Indication: Vitamin D deficiency, unspecified On: 02-Kkt-024736:50 Request CBC WITH MANUAL DIFF ([id number])Indication: Diabetes mellitus type 2, controlled On: 62-Uah-749042:50 Request METABOLIC PANEL, COMPREHENSIVE (83845)Indication: Diabetes mellitus type 2, controlled On: 97-Dki-214600:50 Request Vitamin D Hydroxy (03430)Indication: Vitamin D deficiency, unspecified On: :44 Request VITAMIN B-12 (CYANOCOBALAMIN) (04340)Indication: Other vitamin B12 deficiency anemia On: :44 Request CBC WITH MANUAL DIFF ([id number])Indication: Anemia, unspecified On: :43 Request METABOLIC PANEL, COMPREHENSIVE (40236)Indication: Diabetes mellitus type 2, controlled On: :43 Request MICROALBUMIN: CREATININE RATIO (23519) AND (69375)Indication: Diabetes mellitus type 2, controlled On: :43 Request LIPID PANEL (16075)Indication: Other and unspecified hyperlipidemia On: :43 Request TSH (12635)Indication: Acquired hypothyroidism On: :43 Request Vitamin D Hydroxy (24875)Indication: Vitamin D deficiency, unspecified On: :03 Request LIPID PANEL (80837)Indication: Other and unspecified hyperlipidemia On: :03 Request CBC WITH MANUAL DIFF (17421)Indication: Diabetes mellitus type 2, controlled On: :02 Request METABOLIC PANEL, COMPREHENSIVE (84577)Indication: Diabetes mellitus type 2, controlled On: 9-Rgh-089343:02 Request VITAMIN B-12 (CYANOCOBALAMIN) (79752)Indication: Other vitamin B12 deficiency anemia On: 5-Prz-811651:36 Request Comments: Lot #[id number]-left deltoidDose-1 mlgiven by: Dani Rivera LPN LIPID PANEL (96963)Indication: Other and unspecified hyperlipidemia On: :28 Request METABOLIC PANEL, COMPREHENSIVE (38311)Indication: Uncontrolled type II diabetes mellitus On: :28 Request TSH (07674)Indication: Acquired hypothyroidism On: :28 Request Vitamin D Hydroxy (67603)Indication: Vitamin D deficiency, unspecified On: :22 Request CBC WITH MANUAL DIFF (59052)Indication: Anemia, unspecified On: :22 Request CBC WITH MANUAL DIFF (37885)Indication: Other vitamin B12 deficiency anemia On: 5-Azv-003460:20 Request Blood Glucose , Office (25410)Indication: Uncontrolled type II diabetes mellitus On: :15 Request Comments: 149 HgA1C , Office (43209)Indication: Uncontrolled type II diabetes mellitus On: :15 Request METABOLIC PANEL, COMPREHENSIVE (86752)Indication: Other and unspecified hyperlipidemia On: :22 Request LIPID PANEL (59902)Indication: Other and unspecified hyperlipidemia On: :22 Request TSH ([id number])Indication: Acquired hypothyroidism On: :22 Request HEMOGLOBIN GLYCLATED (HGB A1C) (24049)Indication: Abnormal glucose tolerance test On: 96-Mao-914670:20 Request VITAMIN B-12 (CYANOCOBALAMIN) (26728)Indication: Other vitamin B12 deficiency anemia On: 57-Onf-342343:17 Request Vitamin D Hydroxy (83379)Indication: Vitamin D deficiency, unspecified On: :21 Request VITAMIN B-12 (CYANOCOBALAMIN) (27400)Indication: Other vitamin B12 deficiency anemia On: 6-Xxe-995625:20 Request LIPID PANEL (24509)Indication: Abnormal glucose tolerance test On: :20 Request CBC WITH MANUAL DIFF ([id number])Indication: Abnormal glucose tolerance test On: 3-Xke-056705:20 Request METABOLIC PANEL, COMPREHENSIVE (77206)Indication: Abnormal glucose tolerance test On: :20 Request METABOLIC PANEL, COMPREHENSIVE (29347)Indication: Abnormal glucose tolerance test On: :59 Request CBC WITH MANUAL DIFF ([id number])Indication: Abnormal glucose tolerance test On: 5-Lxx-378593:59 Request Vitamin D Hydroxy (37085)Indication: Vitamin D deficiency, unspecified On: 8-Nhu-065948:59 Request VITAMIN B-12 (CYANOCOBALAMIN) (17685)Indication: Other vitamin B12 deficiency anemia On: 0-Tpa-265674:59 Request TSH ([id number])Indication: Acquired hypothyroidism On: 1-Aqg-175370:58 Request LIPID PANEL (19728)Indication: Other and unspecified hyperlipidemia On: 8-Are-765105:58 Request CCP ANTIBODY (59089)Indication: Pain in unspecified joint On: 05-Uxp-832793:22 Request VITAMIN B-12 (CYANOCOBALAMIN) (10522)Indication: Other vitamin B12 deficiency anemia On: 6-Ksg-174074:10 Request Vitamin D Hydroxy (94374)Indication: Vitamin D deficiency, unspecified On: 8-Nki-260634:10 Request MICROALBUMIN: CREATININE RATIO (06681) AND (82832)Indication: Uncontrolled type II diabetes mellitus On: :10 Request CBC WITH MANUAL DIFF (92645)Indication: Uncontrolled type II diabetes mellitus On: 5-Xoh-399833:10 Request METABOLIC PANEL, COMPREHENSIVE (78180)Indication: Benign essential hypertension (Renamed from Benign essential HTN) On: 3-Rzd-592402:09 Request LIPID PANEL (99165)Indication: Other and unspecified hyperlipidemia On: 0-Twp-586421:09 Request TSH (74088)Indication: Acquired hypothyroidism On: 9-Ymo-288296:39 Request VITAMIN B-12 (CYANOCOBALAMIN) (68865)Indication: Other vitamin B12 deficiency anemia On: 7-Knw-760366:37 Request HEPATIC FUNCTION PANEL (82408)Indication: Other and unspecified hyperlipidemia On: 8-Jtb-630514:36 Request LIPID PANEL (86445)Indication: Other and unspecified hyperlipidemia On: 9-Cbz-232650:36 Request Vitamin D Hydroxy (26286)Indication: Vitamin D deficiency, unspecified On: 0-Ygk-791083:36 Request METABOLIC PANEL, COMPREHENSIVE (87522)Indication: Benign essential hypertension (Renamed from Benign essential HTN) On: 5-Jcm-988643:35 Request LIPID PANEL (30554)Indication: Other and unspecified hyperlipidemia On: 7-Cjb-527857:35 Request Vitamin D Hydroxy (21337)Indication: Vitamin D deficiency, unspecified On: 2-Cwt-921239:30 Request Vitamin D Hydroxy (05325)Indication: Vitamin D deficiency, unspecified On: 38-Svb-239872:10 Request MICROALBUMIN: CREATININE RATIO (96698) AND (79860)Indication: Uncontrolled type II diabetes mellitus On: 52-Nzg-674318:07 Request LIPID PANEL (91328)Indication: Other and unspecified hyperlipidemia On: :07 Request TSH (24813)Indication: Acquired hypothyroidism On: :07 Request VITAMIN B-12 (CYANOCOBALAMIN) (56659)Indication: Other vitamin B12 deficiency anemia On: 20-Kjw-154847:42 Request Vitamin D Hydroxy (74682)Indication: Vitamin D deficiency, unspecified On: :50 Request IRON BINDING CAPACITY (TIBC) (48533)Indication: Iron (Fe) deficiency anemia On: :50 Request LDH (LD) (LACTATE DEHYDROGENASE) (25065)Indication: Iron (Fe) deficiency anemia On: :50 Request FERRITIN (98117)Indication: Iron (Fe) deficiency anemia On: :50 Request IRON (43649)Indication: Iron (Fe) deficiency anemia On: :50 Request CBC WITH MANUAL DIFF (65028)Indication: Iron (Fe) deficiency anemia On: :50 Request HEPATIC FUNCTION PANEL (11893)Indication: Other and unspecified hyperlipidemia On: :44 Request LIPID PANEL (65209)Indication: Other and unspecified hyperlipidemia On: :44 Request CBC WITH MANUAL DIFF (60866)Indication: Other vitamin B12 deficiency anemia On: 3-Moy-531539:54 Request MICROALBUMIN: CREATININE RATIO (19196) AND (50952)Indication: Glucose intolerance (no malabsorption) On: 7-Nhj-396476:54 Request METABOLIC PANEL, COMPREHENSIVE (25950)Indication: HYPERTENSION, NOS On: :54 Request LIPID PANEL (40809)Indication: Other and unspecified hyperlipidemia On: :53 Request VITAMIN B-12 (CYANOCOBALAMIN) (42122)Indication: Other vitamin B12 deficiency anemia On: :53 Request IRON (81417)Indication: Iron (Fe) deficiency anemia On: :53 Request Vitamin D Hydroxy (17509)Indication: Osteopenia On: 6-Oqr-361310:49 Request Methylmalonic acid, serum 52860Kusbmboato: Other vitamin B12 deficiency anemia On: :03 Request VITAMIN B-12 (CYANOCOBALAMIN) (43335)Indication: Other vitamin B12 deficiency anemia On: 39-Icv-803172:03 Request TSH (59257)Indication: Acquired hypothyroidism On: :03 Request HgA1C , Office (22515)Indication: Abnormal glucose tolerance test On: 6-Ehl-673447:06 Request TSH (73269)Indication: Acquired hypothyroidism On: :35 Request LIPID PANEL (41684)Indication: Other and unspecified hyperlipidemia On: :35 Request METABOLIC PANEL, COMPREHENSIVE (54421)Indication: SOB (shortness of breath) on exertion On: :34 Request CBC WITH MANUAL DIFF (55149)Indication: SOB (shortness of breath) on exertion On: :34 Request TSH ([id number])Indication: Acquired hypothyroidism On: 8-Bfb-150024:46 Request Comments: do in 6 weeks TSH (48492)Indication: Acquired hypothyroidism On: 67-Hur-154861:15 Request Comments: DO IN 6 WEEKS WITH MEDICATION CHANGE TSH (09169)Indication: Other malaise and fatigue On: 47-Bzu-35954:49 Request Iron Binding Capacity (TIBC) (41642)Indication: Iron (Fe) deficiency anemia On: 07-Gco-293268:43 Request Ferritin (42010)Indication: Iron (Fe) deficiency anemia On: 80-Taj-581587:43 Request Iron (72101)Indication: Iron (Fe) deficiency anemia On: 23-Tdy-664085:43 Request HEPATIC FUNCTION PANEL (71365)Indication: Mixed hyperlipidemia On: 79-Nuh-125226:42 Request LIPID PANEL (01839)Indication: Mixed hyperlipidemia On: 05-Vko-221287:42 Request Comments: do in 3 months HEPATIC FUNCTION PANEL (55277)Indication: Mixed hyperlipidemia On: 1-Nnf-853720:11 Request LIPID PANEL (71353)Indication: Mixed hyperlipidemia On: 9-Pjj-180995:11 Request Comments: do in 3 mo TSH (04686)Indication: Acquired hypothyroidism On: Request VITAMIN B-12 (CYANOCOBALAMIN) (87398)Indication: Anemia, unspecified On: Request LDH (LD) (LACTATE DEHYDROGENASE) (04699)Indication: Anemia, unspecified On: Request RETICULOCYTE COUNT MANUL (75111)Indication: Anemia, unspecified On: Request IRON BINDING CAPACITY (TIBC) (42466)Indication: Anemia, unspecified On: Request IRON (61947)Indication: Anemia, unspecified On: Request FOLIC ACID SERUM (71254)Indication: Anemia, unspecified On: Request HAPTOGLOBIN (05819)Indication: Anemia, unspecified On: Request FERRITIN (98533)Indication: Anemia, unspecified On: Request CBC, PLATELETS & AUT DIFF (56198)Indication: Anemia, unspecified On: Request HgA1C , Office (36692)Indication: Abnormal glucose tolerance test On: : Request CBC with manual diff (42872)Indication: Anemia, unspecified On: :49 Request HgA1C , Office (98233)Indication: Abnormal glucose tolerance test On: 51-Act-708872:30 Request Comments: controlled URINALYSIS W/O MICRO ([id number])Indication: HYPERTENSION, NOS On: :03 Request TSH (73063)Indication: Acquired hypothyroidism On: :03 Request MICROALBUMIN URINE QUANT (77115)Indication: HYPERTENSION, NOS On: 15-Vod-547897:03 Request METABOLIC PANEL, COMPREHENSIVE (81089)Indication: HYPERTENSION, NOS On: :03 Request LIPID PANEL (37118)Indication: HYPERTENSION, NOS On: 69-Onf-384673:03 Request CBC WITH MANUAL DIFF ([id number])Indication: HYPERTENSION, NOS On: 57-Jhy-408223:03 Request Planned Procedures Aerosol Treatment ([id number])By: On: 14-Apr-2018 Intent Thelma Sofia Comments: Lungs clear after albuterol aerosol treatment Ultrasound - LiverBy: Melanie DO, On: 21-Nov-2017 Intent Doris Melanie DO, Doris Melanie DO, Doris B 12 Injection, 1000 mcg ([id number])By: On: 21-Nov-2017 Intent Melanie DO, Doris Melanie DO, Comments: Vitamin b12 1000mcg injection lot:[id number]:04/2019L DELT IMpt tolerated well CARYN DUMONT Doris Melanie DO, Doris PHYSICAL THERAPY (15730)By: [place], On: 28-Oct-2017 Intent Thelma Radiology - Hip - LeftBy: [place], On: 28-Oct-2017 Intent Thelma Aerosol Treatment (26960)By: Melanie On: 07-Aug-2017 Intent DO, Doris Melanie DO, Doris Comments: more a/e less nois e Melanie DO, Doris Spirometry (08091)By: Melanie KEBEDE, On: 07-Aug-2017 Intent Doris Melanie DO, Doris Melanie Comments: really poor techniq DO, Doris Radiology - Chest- PA and LatBy: On: 07-Aug-2017 Intent Melanie DO, Doris Melanie DO, Doris Melanie DO, Doris IV Needle placement (76196)By: On: 02-Aug-2017 Intent Melanie DO, Doris Melanie DO, Doris Melanie DO, Doris INFUSION, NORMAL SALINE SOLUTION , On: 02-Aug-2017 Intent 1000 CC (Special Coverage Comments: lot:[id number]:02-26-2019rte:right anticubdose:1000ml given by:david Snow LPN Instructions Apply. See MCM: 2048) ([id number])By: Melanie DO, Doris Melanie DO, Doris Melanie DO, Doris INFUSION, NORMAL SALINE SOLUTION , On: 01-Aug-2017 Intent 1000 CC (Special Coverage Comments: lot:[id number]:02-26-2019rte:IV left anticubdose:1000ml NS given by:david Snow LPN Instructions Apply. See MCM: 2048) (J7030)By: Tobi, Marcia Aerosol Treatment (88357)By: Melanie On: 01-Aug-2017 Intent Doris KEBEDE MelanieDoris driscoll DO Comments: more a/e less junky sounding Melanie DODoris PNEUM VAC ADLT/IMUMNOSPR, SBC/INTRM On: 25-Apr-2017 Intent (10829)By: Doris Navarro DO Comments: 0.5cc given sq lt arm lot [id number] exp 09/05/18 Melanie DO, Doris Melanie DODoris INTENSIVE BEHAVIORAL THERAPY TO On: 25-Apr-2017 Intent REDUCE CARDIOVASCULAR DISEASE RISK, INDIVIDUAL, [id number], ANNUAL, 15 MINUTES (G0446)By: Doris Navarro DO Melanie DO, Doris Melanie DODoris [id number]-[id number] BEHAVIORAL COUNSELING On: 25-Apr-2017 Intent FOR OBESITY, 15 MINUTES (G0447)By: Doris Navarro DO Melanie DO, Doris Melanie DO, Doris B 12 Injection, 1000 mcg ([id number])By: On: 25-Apr-2017 Intent Melanie DO, Doris Melanie DO, Comments: 1 ml given lt arm lot [id number] exp 03/15 Dorsi Jay DO ELECTROCARDIOGRAM, COMPLETE (ECG) On: 25-Apr-2017 Intent (04381)By: Doris Navarro DO Comments: nsr no acute chg Melanie DO, Doris Melanie DO, Doris B 12 Injection, 1000 mcg (J3420)By: On: 14-Mar-2017 Intent Melanie DO, Doris Melanie DO, Comments: lot [id number] 09/16left [id number] mcgas, PATROL MOTHER Doris Melanie DO, Doris B 12 Injection, 1000 mcg ([id number])By: On: 31-Dec-2016 Intent Melanie DO Doris Melanie DO, Comments: [id number], PATROL MOTHER Doris Melanie DO, Doris B 12 Injection, 1000 mcg (J3420)By: On: 20-Sep-2016 Intent Melanie DO, Doris Melanie DO, Comments: lot:[id number]: 4/18Dose: 1,000 mcgSite: R dltdLocation; IMby:, PATROL MOTHER Doris Melanie DO, Doris Solu- Medrol Injection, 125mg On: 20-Aug-2016 Intent ([id number])By: MelanieJd driscoll DOeen Comments: lot: [id number]: 01/14site/route: LGM/IMamt:2mLVIS signed when applicableChelsea, FARM OPERATIONS TECHNICAL DIRECTOR Melanie DO, Doris Melanie DO, Doris Aerosol Treatment (04759)By: Melanie On: 20-Aug-2016 Intent DO, Doris Melanie DO, Doris Comments: albulterol 0.83%relistedned nad more a/e less noise Melanie DO, Doris B 12 Injection, 1000 mcg (J3420)By: On: 20-Aug-2016 Intent Melanie DO, Doris Melanie DO, Comments: lot: [id number]: ite/route: L del/IMamt: 1mLVIS signed when applicableChelsea, FARM OPERATIONS TECHNICAL DIRECTOR Doris Melanie DO, Doris Spirometry (32004)By: Melanie DO, On: 16-Aug-2016 Intent Doris Melanie DO, Doris Melanie Comments: ok stable - DO, Doris Aerosol Treatment (66272)By: Melanie On: 16-Aug-2016 Intent DO, Doris Melanie DO, Doris Comments: albulterol 0.83%more a.e stil some niose in RUL -- junky and easy to cough Melanie DO, Doris Solu- Medrol Injection, 125mg On: 16-Aug-2016 Intent (J2930)By: MelanieJd driscoll DOeen Comments: lot [id number] mgright gm, IMas PATROL MOTHER Melanie DO, Doris Melanie DO, Doris B 12 Injection, 1000 mcg (J3420)By: On: 20-Jul-2016 Intent Melanie DO, Doris Melanie DO, Comments: B12lot:6202exp:ite:rt deltroute:IMdose:1mlD.HAY Valentin Doris Melanie DO, Doris Solu- Medrol Injection, 125mg On: 20-Jul-2016 Intent (J2930)By: Doris Navarro DO Comments: lot: [id number]: 01/14site/route: RGM/IMamt: 2mLVIS signed when applicableChelsea, FARM OPERATIONS TECHNICAL DIRECTOR Melanie DO, Odris Melanie DO, Doris Aerosol Treatment (63199)By: Melanie On: 20-Jul-2016 Intent DO, Doris Melanie DO, Doris Comments: less wheeze good a/e- less irritability with breathing Doris Navarro DO Radiology - Chest- PA and LatBy: On: 20-Jul-2016 Intent Melanie DO, Doris Melanie DO, Doris Melanie DO, Doris Spirometry ([id number])By: Melanie KEBEDE, On: 20-Jul-2016 Intent Doris Melanie DO, Doris Melanie Comments: mild restriction =- poor curve and technique DO, Doris ELECTROCARDIOGRAM, COMPLETE (ECG) On: 20-Jul-2016 Intent ([id number])By: Doris Navarro DO Comments: sinus braden no acute chg Melanie DO, Doris Melanie DO, Doris B 12 Injection, 1000 mcg ([id number])By: On: 29-May-2016 Intent Melanie DO, Doris Melanie DO, Comments: Lot:[id number]:11/13Dose:1mlRoute:IMSite:r armGiven By:SAADIA signed Doris Melanie DO, Doris Flu Vaccine (Quadrivalent) [id number]: On: 29-May-2016 Intent Melanie DO, Doris Melanie DO, Comments: Lot:[id number]:01/25/17Dose:0.5mLRoute:IMSite:L DltdGiven By:SAADIA signed Doris Melanie DO, Doris B 12 Injection, 1000 mcg (J3420)By: On: 21-May-2016 Intent Melanie DO, Doris Melanie DO, Doris Melanie DO, Doris B 12 Injection, 1000 mcg ([id number])By: On: 18-May-2016 Intent Melanie DO, Doris Melanie DO, Comments: B12lot:[id number]:ite:rt deltroute:IMdose:1mlD.HAY Valentin Doris Melanie DO, Doris B 12 Injection, 1000 mcg (J3420)By: On: 11-May-2016 Intent Melanie DO, Doris Melanie DO, Comments: lot [id number] [facility] dltdas, PATROL MOTHER Doris Melanie DO, Doris B 12 Injection, [...] ite/route: R del/IMamt: 1mLVIS signed when applicableChelsea, FARM OPERATIONS TECHNICAL DIRECTOR Doris Melanie DO, Doris B 12 Injection, 1000 mcg (J3420)By: On: 13-Apr-2016 Intent Mckinley Valentin Comments: B12lot:[id number]:ite:lt deltroute:IMdose:1mlD.HAY Valentin INTENSIVE BEHAVIORAL THERAPY TO On: 09-Apr-2016 Intent REDUCE CARDIOVASCULAR DISEASE RISK, INDIVIDUAL, SRDB-FB-XBRS, ANNUAL, 15 MINUTES ([id number])By: Melanie DO, Doris Melanie DO, Doris Melanie DO, Doris MUTM-GA-UDQW BEHAVIORAL COUNSELING On: 09-Apr-2016 Intent FOR OBESITY, 15 MINUTES (G0447)By: Melanie DO, Doris Melanie DO, Doris Melanie DO, Doris MAMMOGRAM, SCREENING, BOTH BREAST On: 09-Apr-2016 Intent ([id number])By: Melanie DO, Doris Melanie DO, Doris Melanie DO, Doris DEXA SCAN AXIAL SKELETON ([id number])By: On: 09-Apr-2016 Intent Melanie DO, Doris Melanie [...] Comments: Lot:[id number]:04/14Dose:1mlRoute:IMSite:l armGiven By:SAADIA signed Aerosol Treatment ([id number])By: Fast On: 03-Aug-2015 Intent DO, Maggie A B 12 Injection, 1000 mcg (J3420)By: On: 17-May-2015 Intent Fast DO Maggie A Comments: Lot:[id number]:11/12Dose:1mlRoute:IMSite:l armGiven By:SAADIA signed Flu Vaccine (Quadrivalent) [id number]: On: 17-May-2015 Intent Fast DO Maggie A Comments: lot [id number]: 01/26/2016site/route L sol, IMamt 0.5mlVIS and ABN signed when applicableChelsea, CMAFM4 ADMINISTRATION OF INFLUENZA VIRUS On: 17-May-2015 Intent VACCINE (G0008)By: Maggie Tracey DO A B 12 Injection, 1000 mcg (J3420)By: On: 15-Feb-2015 Intent Kanika Georges Comments: Lot:[id number]:11.16Route:IMSite:R deltoidDose: 1 mLgiven by: Kanika Georges CMA DANIEL (Ankle Brachial Index) On: 08-Feb-2015 Intent ([id number])By: Maggie Tracey DO Radiology - Lumbar SpineBy: Alexy KEBEDE, On: 08-Feb-2015 Intent Maggie Armstrong Ultrasound - ThyroidBy: Alexy KEBEDE, On: 09-Nov-2014 Intent Maggie A B 12 Injection, 1000 mcg (J3420)By: On: 09-Nov-2014 Intent Camelia Tracey DOa A Comments: lot [id number] mcgleft dltdIMas, PATROL MOTHER Radiology - Chest- PA and LatBy: On: 13-Sep-2014 Intent Alexy KEBEDE Maggie A Comments: call stat Pulse Oximetry ([id number])By: Alexy KEBEDE, On: 13-Sep-2014 Intent Maggie A Comments: 97% Inhaler Demonstration ([id number])By: On: 07-Sep-2014 Intent Kimberley Loyd CNP Radiology - Chest- PA and LatBy: On: 14-Jul-2014 Intent Alexy KEBEDE Maggie A Comments: call rsults Spirometry ([id number])By: Alexy KEBEDE, On: 14-Jul-2014 Intent Maggie A Comments: good effort and curve mild rest /obst Prevnar 13 ([id number])By: Alexy KEBEDE, On: 30-Jun-2014 Intent Maggie A Comments: lot [id number] 09/2015location L armroute imgiven by - msmithVIS and/or ABN signed MAMMOGRAM, SCREENING, BOTH BREAST On: 14-Apr-2014 Intent ([id number])By: Maggie Tracey DO A B 12 Injection, 1000 mcg (J3420)By: On: 14-Apr-2014 Intent Camelia Tracey DOa A Comments: Lot #[id number] date:mount given:1mlRoute: IMSite given: left deltoidGiven by: HAY Zavala Cartoid DopplerBy: Alexy DO Maggie A On: 14-Apr-2014 Intent Eprescribed prescriptions (G8553)By: On: 07-Oct-2013 Intent Fast DO, Maggie A DXA, BONE DENSITY, AXIAL SKELETON On: 20-Jul-2013 Intent ([id number])By: Alexy KEBEDE Maggie A Comments: aug Pelvic and Breast, Medicare On: 20-Jul-2013 Intent (G0101)By: Alexy DOCameliaa A Cartoid DopplerBy: Fast DO, Maggie A On: 07-Jul-2013 Intent Eprescribed prescriptions (G8553)By: On: 07-Jul-2013 Intent Raiza Ortiz FLU VAC, SPLIT, >3 YEARS, INTRAMUSC On: 04-May-2013 Intent ([id number])By: Maritza Cantor Comments: lot [id number] 2014site/route L sol, IMamt 0.5mlVIS and ABN signed when applicableChelsea, [facility] ADMINISTRATION OF INFLUENZA VIRUS On: 04-May-2013 Intent VACCINE (G0008)By: Maritza Cantor Radiology - Hip - LeftBy: Alexy KEBEDE, On: 07-Apr-2013 Intent Maggie Armstrong Eprescribed prescriptions (G8553)By: On: 07-Apr-2013 Intent Raiza Ortiz Eprescribed prescriptions (G8553)By: On: 05-Jan-2013 Intent Raiza Ortiz Spirometry ([id number])By: Alexy KEBEDE, On: 01-Dec-2012 Intent Maggie A Comments: good effort and curve normal Radiology - Chest- PA and LatBy: On: 01-Dec-2012 Intent Alexy KEBEDE Maggie A Comments: stat call wet read Eprescribed prescriptions (G8553)By: On: 01-Dec-2012 Intent Raiza Ortiz Pulse Oximetry ([id number])By: Angel, On: 01-Dec-2012 Intent Raiza Comments: 98% Eprescribed prescriptions (G8553)By: On: 27-Nov-2012 Intent Melanie DO, Doris Melanie DO, Doris Melanie DO, Doris MAMMOGRAM, SCREENING, BOTH BREASTS On: 29-Sep-2012 Intent ([id number])By: Camelia Tracey DOa A EKG ([id number])By: Raiza Ortiz On: 29-Sep-2012 Intent Comments: ekg- 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 axis and no acute st t wave changes Eprescribed prescriptions (G8553)By: On: 29-Sep-2012 Intent Raiza Ortiz Eprescribed prescriptions (G8553)By: On: 03-Sep-2012 Intent Raiza Ortiz Eprescribed prescriptions (G8553)By: On: 30-Jul-2012 Intent Raiza Ortiz B 12 Injection, 1000 mcg (J3420)By: On: 23-Jun-2012 Intent Maggie Tracey DO A Comments: Lot:[id number]:Dose:1mlRoute:IMSite:L armGiven By:SAADIA signed Eprescribed prescriptions (G8553)By: On: 23-Jun-2012 Intent Raiza Ortiz B 12 Injection, 1000 mcg (J3420)By: On: 25-Mar-2012 Intent Maricruz Rivera LPN Comments: Lot #[id number]-06/10Site-right deltoidDose-1 mlgiven by: Dani Rivera LPN Eprescribed prescriptions (G8553)By: On: 25-Mar-2012 Intent Maggie Tracey DO FLU VAC, SPLIT, >3 YEARS, INTRAMUSC On: 25-Mar-2012 Intent ([id number])By: Patsy Leslie LPN Comments: Lot/Exp: [id number], 12/2011Given in L Dltd, IMPrefilled SyringeBy CARYN Garner ADMINISTRATION OF INFLUENZA VIRUS On: 25-Mar-2012 Intent VACCINE (G0008)By: Patsy Leslie LPN Echo CompleteBy: Alexy KEBEDE Maggie A On: 07-Dec-2011 Intent B 12 Injection, 1000 mcg (J3420)By: On: 07-Dec-2011 Intent [address] LPN CT - OtherBy: Alexy DO Maggie A On: 03-Oct-2011 Intent Comments: get cta of carotid arteries TDAP VACCINE >7 IM ([id number])By: On: 03-Oct-2011 Intent Raiza Ortiz B 12 Injection, 1000 mcg (J3420)By: On: 07-Sep-2011 Intent Raiza Ortiz Comments: Lot #[id number]-/Site-left deltoidDose-1 mlgiven by: Dani Rivera LPN Cartoid DopplerBy: Maggie Tracey DO On: 07-Sep-2011 Intent Comments: in september DXA, BONE DENSITY, AXIAL SKELETON On: 07-Sep-2011 Intent ([id number])By: Maggie Tracey DO MAMMOGRAM, SCREENING, BOTH BREASTS On: 07-Sep-2011 Intent ([id number])By: Maggie Tracey DO Aerosol Treatment ([id number])By: Ciesa On: 08-Aug-2011 Intent 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, Kimberley Poe EKG ([id number])By: Raiza Ortiz On: 06-Jun-2011 Intent Comments: ekg showed normal sinus rhythym, left axis, no acute st/t wave changes DXA, BONE DENSITY, AXIAL SKELETON On: 06-Jun-2011 Intent ([id number])By: Maggie Tracey DO FLU VAC, SPLIT, >3 YEARS, INTRAMUSC On: 11-May-2011 Intent ([id number])By: Maricruz Rivera LPN Comments: Lot #[id number]-68/20/Site-left deltoidgiven by: Dani Rivera LPN B 12 [...] OtherBy: Alexy KEBEDE, On: 24-Jan-2011 Intent Maggie Armstrong Comments: stat right leg- call wet read [...] PNEUM VAC ADLT/IMUMNOSPR, SBC/INTRM On: 03-Jul-2010 Intent ([id number])By: Magige Tracey DO Comments: Lot #[id number]-/10/07Site-left deltoidDose- 0.5mlgiven by:[facility] ADMINISTRATION OF PNEUMOCOCCAL On: 03-Jul-2010 Intent VACCINE (G0009)By: Maggie Tracey DO MAMMOGRAM, SCREENING, BOTH BREASTS On: 03-Jul-2010 Intent ([id number])By: Maggie Tracey DO B 12 Injection, 1000 mcg (J3420)By: On: 20-Jun-2010 Intent Maggie Tracey DO Comments: Lot #[id number]-12/07Site-left deltoidDose-1 mlgiven by:[facility] B 12 Injection, 1000 mcg (J3420)By: On: 10-May-2010 Intent Apoorva Calle Comments: Lot:[id number]:12/07Dose:1000mcg/1mlRoute:IMSite:right deltoid Given by: HAY Birch FLU VAC, SPLIT, >3 YEARS, INTRAMUSC On: 10-May-2010 Intent ([id number])By: Apoorva Calle Comments: Lot:[id number] 4PExp:4/2011Dose:0.5mlRoute:IMSite:Left Deltoid Given by: HAY Birch ADMINISTRATION OF INFLUENZA VIRUS On: 10-May-2010 Intent VACCINE (G0008)By: Apoorva Calle Doppler Ultrasound OtherBy: Alexy KEBEDE, On: 12-Apr-2010 Intent Maggie Armstrong Comments: both legs stat- left leg swelling- call wet read Spirometry ([id number])By: Alexy KEBEDE, On: 12-Apr-2010 Intent Maggie A Comments: good effort and curve normal B 12 Injection, 1000 mcg (J3420)By: On: 05-Apr-2010 Intent Maggie Tracey DO Ultrasound - GallbladderBy: Alexy KEBEDE, On: 01-Feb-2010 Intent Maggie A IV Needle placement (90806)By: On: 10-Jan-2010 Intent Ana Guzman Comments: IV 22 gauge inserted in right antecubital on first attempt and 0.9 NSS running without difficulty-AW INFUSION, NORMAL SALINE SOLUTION , On: 10-Jan-2010 Intent 1000 CC (Special Coverage Instructions Apply. See MCM: 2049) ([id number])By: Kimberley Loyd CNP THER/PROPH/DIAG INJ, SC/IM On: 10-Jan-2010 Intent ([id number])By: Kimberley Loyd CNP Radiology - Knee - Right - Weight On: 03-Jan-2010 Intent BearingBy: Maggie Tracey DO EKG ([id number])By: Raiza Ortiz On: 03-Jan-2010 Intent Comments: ekg showed normal sinus rhythym, left axis, no acute st/t wave changes Aerosol Treatment ([id number])By: Evert On: 19-Oct-2009 Intent Kimberley LOVE Cartoid DopplerBy: Maggie Tracey DO On: 14-Jun-[address] - Brain/HeadBy: Maggie Tracey DO On: 06-Jun-2009 Intent MAMMOGRAM, SCREENING, BOTH BREASTS On: 06-Jun-2009 Intent ([id number])By: Maggie Tracey DO DXA, BONE DENSITY, AXIAL SKELETON On: 06-Jun-2009 Intent ([id number])By: Maggie Tracey DO FLU VAC, SPLIT, >3 YEARS, INTRAMUSC On: 12-May-2009 Intent ([id number])By: Maricruz Rivera LPN Comments: Lot #[id number]-left deltoidgiven by:[facility] ADMINISTRATION OF INFLUENZA VIRUS On: 12-May-2009 Intent VACCINE (G0008)By: Maricruz Rivera LPN Radiology - Hand - RightBy: Alexy KEBEDE, On: 26-Jan-2009 Intent Maggie Armstrong Radiology - Wrist - RightBy: Fast On: 26-Jan-2009 Intent DO Maggie A Comments: call wet read Pulse Oximetry (75283)By: Alexy KEBEDE, On: 27-Dec-2008 Intent Maggie A Comments: 98 Inhaler Demo ([id number])By: Alexy KEBEDE, On: 27-Dec-2008 Intent Maggie A Spirometry (90250)By: Alexy KEBEDE, On: 27-Dec-2008 Intent Maggie A Comments: good effort and curve has small airways diminished Radiology - Chest- PA and LatBy: On: 27-Dec-2008 Intent Alexy KEBEDE Maggie A Echo CompleteBy: Alexy KEBEDE Maggie A On: 08-Nov-2008 Intent Comments: elevated bp - increase patricia EKG (86107)By: Camelia Tracey DOa A On: 08-Nov-2008 Intent Comments: ekg showed normal sinus rhythym, leftl axis, no acute st/t wave changes rsr unchanged Bio Z ([id number])By: Maggie Tracey DO A On: 08-Nov-2008 Intent Inhaler Demo (89160)By: Melanie KEBEDE, On: 02-Sep-2008 Intent Doris Jay DO, DO, Kathleen Aerosol Treatment ([id number])By: Melanie On: 02-Sep-2008 Intent Doris KEBEDE DO, Kathleen Comments: less echoey -- better less cough Doris Navarro DO EKG (04598)By: Doris Navarro DO On: 16-Dec-2007 Intent Doris [...] LSN TRNK/ARM/LEG On: 09-Jul-2007 Intent 0.6-1.0 CM (88834)By: Kimberley Loyd CNP BIOPSY OF SKIN LESION, SINGLE On: 09-Jul-2007 Intent ([id number])By: Kimberley Loyd CNP SHAVE SKIN LESION, TRUNK/ARM/LEG On: 02-Jul-2007 Intent ([id number])By: Kimberley Loyd CNP BIOPSY OF SKIN LESION, SINGLE On: 02-Jul-2007 Intent ([id number])By: Kimberley Loyd CNP B 12 Injection, 1000 mcg (J3420)By: On: 02-Jul-2007 Intent Jesus RUBIN, Lashonda FLU VAC, SPLIT, >3 YEARS, INTRAMUSC On: 04-Jun-2007 Intent (57315)By: Jing Cabello RN Comments: Lot #: [id number] date: 01/03Amount given: 0.5 MLRoute: IMSite given: Left deltoidGiven by: Nathaniel Beal LPN IMMUNIZ ADMNIN, 1 VAC, SNGL/COMBO On: 04-Jun-2007 Intent (72909)By: Jing Cabello RN B 12 Injection, 1000 [...] DO, Doris Melanie DO, Doris IV Infusion (95578)By: Melanie KEBEDE, On: 18-Oct-2006 Intent Doris Melanie DO, Doris Melanie DO, Doris EKG (34578)By: Doris Navarro DO On: 10-Oct-2006 Intent Melanie [...] MCG/ML Injection Solution Ordered: 25-Mar-2012 Pending [place] PATROL MOTHERMaricruz Armijo Vitamin B-12 1000 MCG/ML Injection Solution [...] The patient does have durable power of deputy attorney general and living will. Other providers contributing to [...] 13 steps at home. I was at [place] for 3 days in ICU I broke [...] The patient does have durable power of deputy attorney general and living will. The patient has noticed [...] and she off pravastatin and went to [place] and now on 5 mg of crestor- and tolerated she got leg pain and weakness on pravachol- - she got good [facility] on stroke and vascular in [place]- --bp is good and cough gone and [...] The patient does have durable power of deputy attorney general and living will. The damián ent has [...] since going to the urgent care at [facility]- on atb yet but will finish [...] feels good- bp is great- went to [facility] for vascular check and said ok- no [...] stroke sx mood controlled has followup in [facility] for vascular issues soon- no chest pain [...] The patient does have durable power of deputy attorney general and living will. The patient has noticed [...] not home- no gerd - went to [place] for artery checks and doing ok there- [...] care visit: Pt is cur rently on [facility] [place] from seeing Dr. Navarro last .-she is [...] laboratory test results: she went back to [place] Saw Dr Shruthi Quinones- ??head of stroke- [...] ER visit: note: (stroke she was at [facility] x 5days released on saturday05/22/12 to 05/27/12). The patient feels well with minor complaints, has decreased energy End: 29-May-2012 14:12 level and is sleeping well. Patient has been compliant with instructions. Current medication use: compliant with dosing regimen. Patient sleeps 7 hours per night. Nutrition: balanced diet and supplement al vitamins. Note for Follow up hospital: [facility] Diagnosis: CVA (434.91), Benign essential hypertension (401.1), Diabetes type II,controlled no comp (250.00), Hypothyroidism (244.9), Carotid stenosis (433.10) [facility] Office Visit On: 22-May-2012 10:33 Encounter Reason: Follow up hospital - Reason for ER visit: note: (TIA. ??Patient was seen by [facility] ER x 3 times last week and then sent to [facility] for psych eval.). 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
--- OUTSIDE RECORDS SUMMARY | 2018-08-20 04:12 | XMS RPT_ITS | Continuity of Care Document ---
:1940 Author Organization [facility] Address [address] [facility] [address] [place] [address] Phone Care Team Providers Name Role Phone Doris Navarro DO Unavailable Camacho Serrano Unavailable Flakito Morales Unavailable [facility], [facility] Unavailable Marcello Stein Unavailable Sal Urrutia Unavailable Maggie Tracey DO Unavailable Liza Durno Unavailable CARYN Khan Unavailable Unavailable Thelma Sofia [...] artery stenosis (I65.23, 433.10) Comments: goes to [facility] yearly to follow Status: Active BMI [...] related to fatty liver -- did nutrition teacher counselor and wt loss / metformin and [...] Start : 26-Sep-2016 End : 12-Dec-2017 Inactive Florence 5-325 MG Oral Tablet 1 q 4hrs [...] : 07-Sep-2014 End : 13-Sep-2014 Discontinued ERGOCALCIFEROL, 28997KWMR (Oral Capsule) 1 (one) Capsule q week [...] End : 23-Jun-2012 Discontinued VITAMIN D (ERGOCALCIFEROL), 28783ICZT (Oral Capsule) 1 Capsule q week for 0 days Quantity: 12 {Capsule} Refills: 2 Ordered:19-Aug-2015 Raiza Ortiz Start : 07-Apr-2013 End : 19-Aug-2015 Discontinued VITAMIN D, 31040VVNP (Oral Capsule) 1 (one) Capsule q week [...] Department Summary Result: Comments: See Note; NOTES: [facility] Medical Records Department [address] [place] [address] Emergency Department Summary 05/14/18 0908 MR#: [id number] Acct: [id number] Name: MARICRUZ GRIGSBY Rep #: [id number] : 1940 78 From: Zee Denise MD [...] family doctors she is re ferred to [place] [facility] for the shoulder injury and she will return for change in symptoms and she is comfortable with this plan Treatment Plan: [] Disposition: [] Stable home Impression: [] Fall left rib fracture, left shoulder injury This note was generated with Iora Healthation software. It may contain incorrect words, spelling, [...] your Primary Care Provider. Call [facility] Registry ([phone]) or report to the closest Emergency Room. Call 911 if necessary. 05/14/18 1530 <Electronically signed by Zee Denise MD> Date Zee Denise MD Cosigner Signatur e (If Indicated): Date CC: Doris Navarro DO 14-May-2018 Discharge Instruction Result: Comments: See Note; NOTES: [facility] Medical Records Department [address] [place] [address] Discharge Instruction 05/14/18 1133 MR#: [id number] Acct: [id number] Name: CLIFFORD HOBBSMARICRUZ THORNE Rep #: [id number] : 1940 78 From: Zee Denise MD PCP: Doris Navarro DO Status: REG ER ED Disposition - Plan for ED Patient: Chief Complaint: Fall Instructions: ED M echanical Fall, ED Fx Rib, ED Sprain Shoulder, ED Sling Prescriptions: Hydrocodone Bitart/Apap 5-325 [[place]orence 5MG-325MG] 1 tab PO Q6H PRN PRN 3 Days #10 tab PRN Reason: Pain Referrals: Doris Navarro DO [Primary Care Provider] - What to do if you have Problems For any increased pain, shortness of breath, bleeding, nausea or vomiting, chest pain, or any unexpected problems, contact your Primary Car e Provider. Call Doctors Registry ([phone]) or report to the closest Emergency Room. Call 911 if necessary. 05/14/18 1134 <Electronically signed by Zee Denise MD> Date ___ Zee Denise MD Cosigner Signature (If Indicated): Date CC: Doris Navarro DO 14-May-2018 Chest PA and Lateral Result: Comments: See Note; NOTES: [facility] Imaging Services [address] [place] [address] Chest PA and Lateral MR#: [id number] Acct: [id number] Name: MARICRUZ GRIGSBY Rep #: [id number] : 1940 F 78 From: Teo Wayne MD PCP: Doris Navarro DO Status: REG ER Study: Chest PA and Lateral Date of Exam: 05/14/18 Exam# [id number] Ordering Dr: Zee Denise MD STUDY: X-RAY [...] Teo Wayne MD at 10:11 EDT Tel [phone], Webcrunch support , CC: MD Sonam Denise; Doris Navarro DO Silviculture Teacher: Signed 14-May-2018 Elbow min 3 Views Result: Comments: See Note; NOTES: [facility] Imaging Services [address] [place] [address] Elbow min 3 Views MR#: [id number] Acct: [id number] Name: MARICRUZ GRIGSBY Rep #: [id number] : 1940 F 78 From: Teo Wayne MD PCP: Doris Navarro DO Status: [facility] Study: Elbow min 3 Views Date of Exam: 05/14/18 Exam# [id number] Ordering Dr: Zee Denise MD STUD Y: [...] Teo Wayne MD at 10:12 EDT Tel [phone], Service support , CC: MD Sonam Denise; Doris Navarro DO Silviculture Teacher: Signed 14-May-2018 Shoulder min 2 Views Result: Comments: See Note; NOTES: [facility] Imaging Services [address] [place] [address] Shoulder min 2 Views MR#: [id number] Acct: [id number] Name: MARICRUZ GRIGSBY Rep #: [id number] : 1940 F 78 From: Teo Wayne MD PCP: Doris Navarro DO Status: REG ER Study: Shoulder min 2 Views Date of Exam: 05/14/18 Exam# [id number] Ordering Dr: Zee Denise MD STUDY: X-RAY [...] Wayne MD at 11:02 EDT Tel [phone], Service support , CC: MD Sonam Denise; Doris Navarro DO Silviculture Teacher: Signed 06-Feb-2018 History and Physical Exam Result: Comments: See Note; NOTES: [facility] Medical Records Department [address] [place] [address] History and Physical 02/06/182050 MR#: [id number] Acct: [id number] Name: MARICRUZ GRIGSBY Rep #: [id number] : 1940 77 From: María Barnes MD [...] cholecystectomy Psychiatric History: No pertinent psych hx DIRECTOR VISUAL History: No pertinent DIRECTOR VISUAL history Lives: Spouse/ Significant Other Smoking Status: [...] Subcu heparin. This note was generated with Unpakt software. It may contain incorrect words, spelling, and punctuation that were not noted in checking the note before signing. Code Visit OBSV E AND M: 03079 Initial observation care L3 07/12/08 05 2108 <Electronically signed by María Barnes MD> Date María Barnes MD Cosigner Signature: Date (if applicable) CC: María Barnes; Doris Navarro DO Signed 06-Feb-2018 Brain/Head without Contrast Result: Comments: See Note; NOTES: [facility] Imaging Services [address] [facility] [place] [address] Brain/Head without Contrast MR#: [id number] Acct: [id number] Name: MARICRUZ GRIGSBY Rep #: [id number] : 1940 F 77 From: Renata Lee MD PCP: Doris Navarro DO Status: REG Study: Brain/Head without Contrast Date of Exam: 02/06/18 Exam# [id number] Ordering Dr: Cameron Marte MD STUDY: CT [...] , CC: Doris Navarro DO; Jered Marte Silviculture Teacher: Signed 06-Feb-2018 Chest 1 View Result: Comments: See Note; NOTES: [facility] Imaging Services [address] [place] [address] Chest 1 View MR#: [id number] Acct: [id number] Name: MARICRUZ GRIGSBY Rep #: [id number] : 1940 F 77 From: Renata Lee MD PCP: Doris Navarro DO Status: [facility] ER Study: Chest 1 View Date of Exam: 02/06/18 Exam# [id number] Ordering Dr: Jered Marte MD STUDY: X-RAY [...] , CC: Doris Navarro DO; Jered Marte Silviculture Teacher: Signed 25-Nov-2017 Liver Result: Comments: See Note; NOTES: [facility] Imaging Services [address] [place] [address] Liver MR#: [id number] Acct: [id number] Name: MARICRUZ GRIGSBY Stuart Rep #: [id number] : 1940 F 77 From: Mack Hand MD PCP: Doris Navarro DO Status: REG CLI Study: Liver Date of Exam: 11/25/17 Exam# [id number] Ordering Dr: Doris Navarro DO STUDY: ABDOMINAL [...] MD at 12:34 EDT , Service support [phone], CC: Doris Navarro DO Silviculture Teacher: Signed 29-Oct-2017 Hip 2-3 Views with Pelvis Result: Comments: See Note; NOTES: [facility] Imaging Services [address] [place] [address] Hip 2-3 Views with Pelvis MR#: [id number] Acct: [id number] Name: MARICRUZ GRIGSBY #: [id number] : 1940 F 77 From: Benji Finch PCP: Doris Navarro DO Status: REG CLI Study: Hip 2-3 Views with Pelvis Date of Exam: 10/29/17 Exam# [id number] Ordering Dr: Thelma Sofia ELECTORATE OFFICER- C STUDY: X-RAY - PELVIS AND LEFT [...] , CC: QUINN Sofia; Doris Navarro DO Silviculture Teacher: Signed 27-Aug-2017 12 Lead Electrocardiogram Result: Comments: See Note; NOTES: [facility] Cardiovascular Services [address] [place] [address] 12 Lead EKG 08/24/17 1719 MR#: [id number] Acct: [id number] Name: PORTIA GRIGSBY Rep #: [id number] : 1940 77 From: Maurilio Meraz MD [...] C onfirmed by SOLEDAD STREETER, MAURILIO ([id number]), editorial manager STACY CARTER (56) on 08/27/2017 10:37:34 AM Referred By: EITAN Confirmed By:MAURILIO MERAZ MD 08/27/17 1037 Date Maurilio Meraz MD CC: Doris Melanie KEBEDE Signed 25-Aug-2017 Emergency Department Summary Result: Comments: See Note; NOTES: [facility] Medical Records Department [address] [place] [address] Emergency Department Summary 08/24/17 1709 MR#: [id number] Acct: [id number] Name: MARICRUZ GRIGSBY Rep #: [id number] : 1940 77 From: Zee Denise MD [...] at home. She has no history of [place] PE or DVT she does have history [...] be altered This note was generated with Leversense dictation software. It may contain incorrect words, [...] your Primary Care Provider. Call [facility] ([phone]) or report to the closest Emergency Room. Call 911 if necessary. 08/25/17 0001 <Electronically sig radha by Zee Denise MD> Date Zee Denise MD Cosigner Signature (If Indicated): Date CC: Doris Navarro DO 24-Aug-2017 Discharge Instruction Result: Comments: See Note; NOTES: [facility] Medical Records Department [address] [place] [address] Discharge Instruction 08/24/17 1820 MR#: [id number] Acct: [id number] Name: MARICRUZ GRIGSBY Rep #: [id number] : 1940 77 From: Zee Denise MD [...] problems, contact your Primary Care Provider. Call [facility] ([phone]) or report to the closest [facility] Room. Call 911 if necessary. 08/24/17 1821 <Electronically signed by Zee Denise MD> Date Zee Denise MD Cosign er Signature (If Indicated): Date CC: Doris Navarro DO 24-Aug-2017 Chest PA and Lateral Result: Comments: See Note; NOTES: [facility] Imaging Services [address] [place] [address] Chest PA and Lateral MR#: [id number] Acct: [id number] Name: MARICRUZ GRIGSBY Stuart Rep #: [id number] : 1940 F 77 From: Stacy Tapia MD PCP: Doris Navarro DO Status: REG ER Study: Chest PA and Lateral Date of Exam: 08/24/17 Exam# [id number] Ordering Dr: Zee Denise MD XR Chest [...] CC: MD Sonam Denise; Doris Navarro DO Silviculture Teacher: Signed 07-Aug-2017 Chest PA and Lateral Result: Comments: See Note; NOTES: [facility] Imaging Services [address] [place] [address] Chest PA and Lateral MR#: [id number] Acct: [id number] Name: CLIFFORD MARICRUZ CRUZ Rep #: [id number] : 1940 F 77 From: Teo Wayne MD PCP: Doris Navarro DO Status: REG CLI Study: Chest PA and Lateral Date of Exam: 08/07/17 Exam# [id number] Ordering Dr: Doris Navarro DO STUDY: X-RAY [...] Logan i, MD at 13:49 EST Tel [phone], Service support , CC: Doris Navarro DO Silviculture Teacher: Signed 20-Nov-2016 Operative Report Result: Comments: See Note; NOTES: [facility] Medical Records Department [address] [place] [address] Operative Report 11/14/16 0736 MR#: [id number] Acct: [id number] Name: MARICRUZ BREAUX Rep #: [id number] : 1940 76 From: Liza Duron DO PCP: Doris Navarro DO Status: [facility] Location: [facility] Report of Operation Date of Procedure: 11/14/16 Pre-Operative Diagnosi s: Right third and fourth trigger fingers Post-Operative Diagnosis: Name Surgery/Procedure Performed:: Right hand third and fourth A1 shannan release Type of Anesthesia:: Block,[place] Anesthesiologist: Fox Michaels Estimated Blood Loss (mL): none Fluids Replaced: 500cc lR Description of Procedure: preOperative note Patient is a 76-year-old female well-known to me in clinic. Patient is triggering of her third and fourth fingers of the worsening patient failed conservative treatment. Patient elected to proceed with right third and fourth trigger A1 shannna release. Wrist benefits alternatives surgery discussed with [...] Dragon disclaimer This note was generated with Ovo Cosmico dictation software. It may contain incorrect words, spellin g, and punctuation that were not noted in checking the note before signing. 11/20/16 1231 <Electronically signed by Liza Duron DO> Date Liza Duron DO CC: Liza Duron DO; Doris Navarro DO Signed 16-Nov-2016 Oncology Progress Note Result: Comments: See Note; NOTES: [facility] Medical Records Department [address] [facility] [place] [address] Oncology Progress Note MR#: [id number] Acct: [id number] Name: PORTIA GRIGSBY Rep #: [id number] : 1940 76 From: Sal Urrutia MD [...] level. Sal Urrutia MD T: NTS JOB: [id number] 11/16/16 0850 <Electronically signed by Sal Urrutia MD> Date Sal Urrutia MD Cosigner Signature (If Indicated): Date CC: Date Dictated: 11/08/16 1305 Date Transcribed: 11/08/16 1305 Silviculture Teacher: Signed 14-Nov-2016 Discharge Instruction Result: Comments: See Note; NOTES: [facility] Medical Records Department [address] [place] [address] Instructions for Home/Discharge Instructions 11/14/16 0735 MR#: [id number] Acct: [id number] Name: MARICRUZ GRIGSBY Rep #: [id number] : 1940 76 From: Liza Duron DO [...] mg PO DAILY 11/09/16 Hydrocodone Bitart/Apap 5-325 [Florence 5MG- 325MG] 1 - 2 tablet PO Q6H PRN PRN #20 tablet 11/14/16 The following prescriptions were given: Hydrocodone Bitart/Apap 5- 325 [[place]orence 5MG-325MG] 1 - 2 tablet PO Q6H PRN PRN #20 tablet PRN Reason: Pain Primary Care Physician: Doris Navarro DO [Primary Care Provider] - Please Follow Up With: Liza Duron [phone] 11/14/16 0736 <Electronically signed by Liza Duron DO> Date Liza Duron DO CC: Doris Navarro DO 20-Jul-2016 Chest PA and Lateral Result: Comments: See Note; NOTES: [facility] Imaging Services [address] [place] [address] Verdana 4d Chest PA and Lateral MR#: [id number] Acct: [id number] Name: JAQUAN GRIGSBY Rep #: [id number] : 1940 F 76 From: Mack Hand MD PCP: Doris Navarro DO Status: REG CLI Study: Chest PA and Lateral Date of Exam: 07/20/16 Exam# [id number] Ordering Dr: Doris Navarro DO STUDY: X-RAY [...] at 12:24 EST Tel , Service support [phone], CC: Doris Navarro DO Silviculture Teacher: Signed 26-Jan-2016 Echocardiogram Complete Result: Comments: See Note; NOTES: [facility] Cardiovascular Services [address] [place] [address] Echo Complete 01/26/16 1008 MR#: [id number] Acct: [id number] Name: MARICRUZ PARMAR Rep #: [id number] : 1940 75 From: Mack Dickerson MD Attending Dr: Maggie Tracey DO Status: REG CLI Ordering Dr: Maggie Tracey DO Date: 01/26/16 Location: [facility] Sex: F C Admitt ed: Reason [...] Physician: Maggie Tracey Performed By: Sharyn Bear [facility] 01/26/161611 Date ___ Mack Dickerson MD CC: Maggie Tracey DO Date Dictated: 01/26/16 1008 Date Transcribed: 01/26/161611 Silviculture Teacher: Signed 05-Dec-2015 Chest 1 View (Portable) Result: Comments: See Note; NOTES: [facility] Imaging Services [address] [place] [address] Verdana 4d Chest 1 View (Portable) MR#: [id number] Acct: [id number] Name: MARICRUZ PEÑALOZA Rep #: [id number] : 1940 F 75 From: Yari Garcia MD PCP: Maggie Tracey DO Status: PRE ER Study: Chest 1 View (Portable) Date of Exam: 12/05/15 Exam# [id number] Ordering Dr: Johnnie Baez MD STUDY: X-RAY [...] at 16:44 EDT Tel , Service support [phone], RAD/Chest 1 V iew (Portable) IMPRESSION: Underexpansion of the lungs. Mild to moderate cardiomegaly. Electronically Signed: Yari Garcia MD at 16:44 EDT Tel , Service support , CC: Maggie Tracey DO; Johnnie Baez MD Silviculture Teacher: Signed 05-Dec-2015 Spirometry (46883) Comments: good effort and curvenormal Result: 05-Dec-2015 EKG (14398) Comments: ekg showed normal sinus rhythym, normal axis, no acute st/t wave changes Result: [MEASUREMENTS ANALYSIS] Date of Test: 12/05/2015 14:27:41; Heart Rate: 93; CA Interval: 202; QRS: 96; QT Interval: 352; Corrected QT Interval (QTc): 409; P Wave [place]: 48; QRS Wave [place]: -26; T Wave [place] : 55; Blood Pressure: 134/64 [ECG DIAGNOSTIC STATEMENTS] Date of Test: 12/05/2015 14:27:41; Summary: Sinus Rhythm WITHIN NORMAL LIMITS 21-Sep-2015 12 Lead Electrocardiogram Result: Comments: See Note; NOTES: [facility] Cardiovascular Services [address] [place] [address] 12 Lead EKG 09/19/15 0908 MR#: [id number] Acct: [id number] Name: MARICRUZ VIGIL Rep #: [id number] : 1940 75 From: Maurilio Meraz MD [...] wave progression Confirmed by SOLEDAD STREETER, MAURILIO ([id number]), editorial manager STACY CARTER (56) on 09/21/2015 11:27:40 AM Referred By: JE Confirmed By:MAURILIO MERAZ MD 1127 Date Maurilio Meraz MD CC: Maggie Tracey DO Date Dictated: 09/19/15907 Date Transcribed: 09/19/15907 Silviculture Teacher: Signed 19-Sep-2015 Discharge Instruction Result: Comments: See Note; NOTES: [facility] Medical Records Department [address] [place] [address] Discharge Instruction 09/19/15 1020 MR#: [id number] Acct: [id number] Name: MARICRUZ GRIGSBY Rep #: [id number] : 1940 75 From: Johnnie Baez MD [...] mental health center doctor. Call Doctors [facility] ([phone]) or report to the closest Emergency Room. Call 911 if necessary. 09/19/15 1755 <Electronically signed by Johnnie Baez MD> Date __ Johnnie Baez MD Cosigner Signature (If Indicated): Date CC: Maggie Tracey DO 19-Sep-2015 Emergency Department Summary Result: Comments: See Note; NOTES: [facility] Medical Records Department [address] [facility] [place] [address] Emergency Department Summary MR#: [id number] Acct: [id number] Name: MARICRUZ GRIGSBY Rep #: [id number] : 1940 75 From: Johnnie Baze MD PCP: Maggie Tracey DO Status: DEP [...] tachycardia at 112. No acute signs of [place] or ischemia. White count 11.4, H and [...] C: Maggie Tracey DO T: CHERI JOB: [id number] 09/19/15 1398 <Electronically signed by Johnnie Baez MD& amp;#62; Date Johnnie Baez MD Cosigner Signature (If Indicated): Date CC: Maggie Tracey DO Date Dictated: 09/19/15 1019 Date Transcribed: 09/19/151018 Silviculture Teacher: Signed 07-Sep-2015 Chest PA and Lateral Result: Comments: See Note; NOTES: [facility] Imaging Services [address] [place] [address] Verdana 4d Chest PA and Lateral MR#: [id number] Acct: [id number] Name: MARICRUZ HADLEY Rep #: [id number] : 1940 F 75 From: Kali Raymundo MD PCP: Maggie Tracey DO Status: REG CLI Study: Chest PA and Lateral Date of Exam: 09/07/15 Exam# [id number] Ordering Dr: Maggie Irwin DO STUDY: X-RAY [...] FACR at 11:41 EST , Service support [phone], RAD/Chest PA and Lateral IMPRESSION: No significant changes. Stable moderate cardiomegaly. Bilateral interstitial changes more prominent on the right. Wanda velazquez Signed: Kali Raymundo MD, FACR at 11:41 EST , Service support [phone], CC: Maggie Tracey DO Silviculture Teacher: Signed 07-Sep-2015 Spirometry (31465) Comments: good effort and curve normal Result: 24-Mar-2015 PT Discharge Summary Result: Comments: See Note; NOTES: [facility] Physical [facility] [address] [place] [address] Fax REHABILITATION SERVICES DISCHARGE SUMMARY MR#: [id number] Acct: [id number] Name: MARICRUZ GRIGSBY Rep #: [id number] : 1940 75 From: Yuni Clark Referring [...] discharge. Yuni Clark, PT T: NTS JOB: [id number] <Electronically signed by Yuni Clark > 03/24/15 1227 CC: Maggie Tracey DO Signed 17-Feb-2015 Inital Evaluation - PT Result: Comments: See Note; NOTES: [facility] Physical [facility] [address] [place] [address] Fax REHABILITATION SERVICES INITIAL EVALUATION MR#: [id number] Acct: [id number] Name: MARICRUZ GRIGSBY Rep #: [id number] : 1940 75 From: Yuni Clark Referring Dr.: Maggie Tracey DO Status: REG RCR Insurance : MEDICARE PART A B Eval Date: [facility] DATE OF SERVICE: 02/16/2015 SUBJECTIVE: This patient [...] care. Yuni Clark, PT T: NTS JOB: [id number] <Electronically signed by Yuni Clark > 02/17/15 1011 CC: Signed For Medicare only, by seng yao this I certify the plan of care. Physicians Signature Date 08-Feb-2015 L/S Spine Min 4 Views Result: Comments: See Note; NOTES: [facility] Imaging Services [address] [place] [address] Radiology Report MR#: [id number] Acct: [id number] Name: CLIFFORD HOBBSMARICRUZ THORNE Rep #: [id number] : 1940 F 74 From: Teo Wayne MD PCP: Maggie Tracey DO Status: REG CLI Study: L/S Spine Min 4 Views Date of Exam: 02/08/15 Exam# [id number] Ordering Dr: Maggie Tracey DO STUDY: X-RAY [...] Wayne MD a t 12:30 EDT Tel [phone], Service support [phone], RAD/L/S Spine Min 4 Views IMPRESSION: Degenerative changes of the spine, as detailed above. Electro nically Signed: Teo Wayne MD at 12:30 EDT Tel [phone], Service support [phone], CC: Maggie Tracey DO Silviculture Teacher: Signed 15-Nov-2014 Thyroid Result: Comments: See Note; NOTES: [facility] Imaging Services [address] [place] [address] Ultrasound Report MR#: [id number] Acct: [id number] Name: MARICRUZ GRIGSBY Rep #: [id number] : 1940 F 74 From: Julián Trivedi DO PCP: Maggie Tracey DO Status: REG CLI Study: Thyroid Date of Exam: 11/15/14 Exam# [id number] Ordering Dr: Maggie Tracey DO STUDY: THYROID [...] Julián Trivedi DO at 16:51 EDT Tel [phone], Service support [phone], Fax CC: Maggie Tracey DO Silviculture Teacher: Signed 13-Sep-2014 Chest PA and Lateral Result: Comments: See Note; NOTES: [facility] Imaging Services [address] [place] [address] Radiology Report MR#: [id number] Acct: [id number] Name: MARICRUZ GRIGSBY Rep #: [id number] : 1940 F 74 From: Donato Abdi MD PCP: Maggie Tracey DO Status: REG CLI Study: Chest PA and Lateral Date of Exam: 09/13/14 Exam# [id number] Ordering Dr: Maggie Tracey DO STUDY: X [...] at 12:01 EST Tel , Service support [phone], CC: Maggie Tracey DO Silviculture Teacher: Signed 15-Jul-2014 Chest PA and Lateral Result: Comments: See Note; NOTES: [facility] Imaging Services [address] [place] [address] Radiology Report MR#: [id number] Acct: [id number] Name: CLIFFORD CRUZJAQUANMARICRUZ Rep #: [id number] : 1940 F 74 From: Teo Wayne MD PCP: Maggie Tracey DO Status: REG CLI Study: Chest PA and Lateral Date of Exam: 07/15/14 Exam# [id number] Ordering Dr: Maggie Tracey DO SANDI DY: [...] Teo Wayne MD at 9:42 EST Tel [phone], Service support [phone], CC: Maggie Tracey DO Silviculture Teacher: Signed 10-May-2014 Bilat Scrn Digital & CAD Result: Comments: See Note; NOTES: [facility] Imaging Services [address] [place] [address] Breast Imaging Report MR#: [id number] Acct: [id number] Name: JOSE AMARICRUZ GIANG ep #: [id number] : 1940 F 74 From: Gene Phillips PCP: Maggie Tracey DO Status: REG CLI Exam# [id number] Ordering Dr: Maggie Tracey DO MAMMOGRAPHY - [...] these results will be sent to the [facility] ient by the facility within 30 days. Approximately 10% of breast cancers are not detected by mammography. A normal mammogram should not delay biopsy of a clinically suspicious abnormality. Electro nically Signed: Jessenia Phillips MD at 19:48 EDT Tel , Service support [phone], CC: Maggie Tracey DO Silviculture Teacher: Signed 10-Sep-2013 Dexa Bone Density Study (HP) Result: Comments: See Note; NOTES: [facility] Imaging Services [address] [place] [address] Bone Density Report MR#: [id number] Acct: [id number] Name: MARICRUZ GRIGSBY Rep #: [id number] : 1940 F 73 From: Teo Wayne MD PCP: Maggie Tracey DO Status: REG CLI Study: Dexa Bone Density Study (HP) Date of Exam: 09/10/13 Exam# [id number] Ordering Dr: Maggie Tracey DO STUDY: DUAL [...] M.D. at 11:04 EST , Service support [phone], CC: Maggie Tracey DO Silviculture Teacher: Signed Immunization Name Dates Details Influenza (3 years and up) on: 04-Jun-2007 Comments: Lot #: [id number] date: 01/03Amount given: 0.5 MLRoute: IMSite given: Left deltoidGiven by: Nathaniel Beal LPN Influenza (3 years and up) on: 12-May-2009 Comments: Lot #[id number] deltoidgiven by:CDH Family History Unknown Family Member Name Dates Details Cancer Status: Active Diabetes Mellitus Status: Active Father Comments: [place], hypercholesterolemia Status: Active First Degree Relatives Comments: [...] kg/m2 Body Surface Area Calculated 2.06 m2 45-Uam-682003:15 Pulse 81 /min Comments: Pattern: Regular Respiration [...] kg/m2 Body Surface Area Calculated 2.06 m2 28-Mkp-725185:32 Temperature 97.6 f Comments: Method: Temporal Pulse [...] kg/m2 Body Surface Area Calculated 2.06 m2 0-Hqq-169051:26 Comments: orthostatic bp assessment: 12:10pmlying- 170/90 76hrsitting- [...] administered 81mg asa orally at this time also-[facility] BP Systolic 156 mm[Hg] Comments: Patient Position: [...] Value Details :50 Rapid Strep Test, Office (06120) Rapid Strep Test, Office Negative (Normal) :58 TSH (33946) Comments: PATIENT NOT FASTINGPERFORMED BY: [facility]6370 [facility] [id number] TSH 5.590 {uIU/mL} (Abnormal) Range: 0.450-4.500 :58 T4, FREE (THYROXINE) (23168) Comments: PATIENT NOT FASTINGPERFORMED BY: [facility] BiotransSaint Clare's Hospital at SussexVvlzyx2402 [facility] [id number] T4,Free(Direct) 1.81 ng/dL (Abnormal) Range: 0.82-1.77 :58 T3, FREE (TRIDOTHYRONINE) (34423) Comments: PATIENT NOT FASTINGPERFORMED BY: [facility]6370 [facility] [id number] Triiodothyronine (T3), Free 2.1 pg/mL (Normal) Range: [...] Muscle ABS Comments: Comments: ANTI-LIVER/KIDNEY MICRO AB [id number] SER/[facility] (refer to report for specific site)refer [...] MELI-DIRECT Negative (Normal) Comments: Performed at: - [facility] [id number] Director: Constantine Christianson PhD, Phone: [phone] :44 Ceruloplasmin Comments: Comments: ANTI-LIVER/KIDNEY MICRO AB [id number] [facility] (refer to report for specific site)refer to report for address and phone number CERULOPLAS 1560 22.0 mg/dL (Normal) Range: 19.0-39.0 :44 CMV Acute Antibody IgM Comments: Comments: ANTI-LIVER/KIDNEY MICRO AB [id number] [facility] (refer to report for specific site)refer to report for address and phone number CMVIgM AB < 30.0 AU/mL (Normal) Range: 0.0-29.9 Comments: Negative <30.0 Equivocal 30.0 - 34.9 Positive >34.9A positive result is generally indicative of acuteinfection, reactivation or persistent IgM production. :44 Ferritin Comments: Comments: ANTI-LIVER/KIDNEY MICRO AB [id number] SER/[facility] Betwntoxcf7504 [place], [address] FERRITIN 236 ng/mL (Normal) Range: 8-252 :44 Free T3 Comments: Comments: ANTI-LIVER/KIDNEY MICRO AB [id number] SER/[facility] Pwftfjmokt3868 [place], [address] FREE T3 1.6 pg/mL (Abnormal) Range: 2.18-3.98 :44 GGTP 64 U/L (Abnormal) Comments: Comments: ANTI-LIVER/KIDNEY MICRO AB [id number] SER/[facility] [address] [place], [address] Range: 5-55 :44 Hepatitis Panel Acute Comments: Comments: ANTI-LIVER/KIDNEY MICRO AB [id number] [facility] (refer to report for specific site)refer to report for address and phone number HEP C AB <0.1 {s/co_ratio} (Normal) Range: 0.0-0.9 Comments: Negative: < 0.8 Indeterminate: 0.8 - 0.9 Positive: > 0.9 The CDC recommends that a positive HCV antibody result be followed up with a HCV Nucleic Acid Amplification test (077806). HB CORE [id number] Negative (Normal) HB SURF AG Negative (Normal) HEP A IgM 6734 Negative (Normal) :44 Liver Profile Comments: Comments: ANTI-LIVER/KIDNEY MICRO AB [id number] SER/[facility] [address] [place], [address] D BILI 0.17 mg/dL (Normal) Range: 0.00-0.30 T BILI 0.60 mg/dL (Normal) Range: 0.20-1.00 ALT 48 U/L (Normal) Range: 13-56 ALK P 93 U/L (Normal) Range: 45-117 AST 43 U/L (Abnormal) Range: 15-37 GLOB 3.5 g/dL (Normal) Range: 2.2-4.2 ALB 3.7 g/dL (Normal) Range: 3.2-5.0 T PROT 7.2 g/dL (Normal) Range: 6.4-8.2 :44 Miscellaneous Lab Procedure Comments: Comments: ANTI-LIVER/KIDNEY MICRO AB [id number] SER/RFTest(s) Ordered: ANTI-LIVER/KIDNEY MICROS AB [id number] SER/[facility] [address] [place], [address] MISC Comments: TEST RESULT UNITS REF INTERVALLiver- Kidney Microsomal Ab <1.0 Units 0.0 - 20.0 Negative 0.0 - 20.0 LAB (Normal) Equivocal 20.1 - 24.9 Positive >24.9LKM type 1 antibodies are detected in patients withautoimmune hepatitis type 2 and in up to 8% ofpatients wi TEST th chronic HCV infection. [facility]. ORIGINAL REPORT ON FILE IN LAB CONTAINS ADDITIONAL TEST SITE INFORMATION. :44 T4 Free Direct Comments: Comments: ANTI-LIVER/KIDNEY MICRO AB [id number] SER/[facility] F[address]me[address] [place] [address], [id number] T4 FREE DIRECT 1.06 ng/dL (Normal) Range: 0.76-1.46 :44 Thyroid Stim Hormone (TSH) Comments: Comments: ANTI-LIVER/KIDNEY MICRO AB [id number] [facility] Xkqbdwdbif7403 [facility] [place], [address] TSH 16.40 {uIU/mL} (Abnormal) Range: 0.358-3.74 :44 Transferrin Comments: Comments: ANTI-LIVER/KIDNEY MICRO AB [id number] [facility] (refer to report for specific site)refer to report for address and phone number TRANSFERRN 2921 250 mg/dL (Normal) Range: 200-370 Comments: Performed at: [address] [id number] Director: Constantine Christianson PhD, Phone: [phone] 61-Nwp-000543:16 Bedside Glucose Comments: [facility] LaboratoryPoint of [address] [address] BEDSIDE GLU 152 mg/dL (Abnormal) Range: 70-110 Comments: MANAGEMENT OF PATIENT CARE PER NURSING PROTOCOL 99-Opb-068146:45 Basic Metabolic Profile (BMP) Comments: [facility] Ngk[address]ysq[address] [place], [place], [address] GAP 8 (Normal) Range: 5-15 CO2 28.0 [...] A.D.A. criteria.Please note revised GLUCOSE reference range blyvcrrmm52/02/2018. 18-Sbm-368138:45 CBC W/Diff, Automated Comments: [facility] Tutegxqcqz[address] [place], [place], [address] Absolute Lymph 1.73 {X10_3/ul} (Normal) Range: 0.83-4.51 [...] 4.2-5.4 WBC 9.5 K/mm3 (Normal) Range: 4.4-11.0 95-Ryi-080720:45 Partial Thromboplast Time Comments: [facility] Ziuhdounjl1629 [facility] [place], [address] PTT 33.0 s (Normal) Range: 24.1-36.2 66-Vui-445729:45 Prothrombin Time w/INR Comments: [facility] Gwazevmqfd0380 [facility] [place], [address] INR 0.9 (Normal) PROTIME 12.5 s (Normal) Range: 11.7-14.9 66-Tad-064942:45 Troponin-I Comments: [facility] Xmjvghvbih9227 [facility] [place], [address] TROPONIN-I < 0.015 ng/mL Comments: TROPONIN-I EXPECTED VALUES <0.045 Negative 0.045 - 0.590 Consistent with Cardiac Damage > OR = 0.600 Critical Value Not every elevated troponin is indicative of [place]. T (Normal) hesevalues should be used with clinical judgement in examiningthe patient's clinical picture for diagnosis. To establisha diagnosis of [place] versus myocardial injury, there must be ademonstrated rise and/ or fall in the troponin values, inaddition to ischemic symptoms, EKG changes, new regionalwall motion abnormality, and/or angiographical evidence. PLEASE NOTE: REFERENCE RANGES EDITED 17 Liver-Kidney <1.0 {Units} Comments: PATIENT NOT FASTINGPERFORMED BY: [employer] Lygbsz9223 [facility] [id number] 2:14 Microsomal Ab (Normal) Range: 0.0-20.0 Comments: Negative 0.0 - 20.0 Equivocal 20.1 - 24.9 Positive >24.9 . LKM type 1 antibodies are detected in patients with autoimmune hepatitis type 2 and in up to 8% of patients with chronic HCV infection. 45-Aqb-966347:14 HEPATIC FUNCTION PANEL Comments: PATIENT NOT FASTINGPERFORMED BY: [employer]6370 [facility] [id number] (07724) ALT (SGPT) 49 [iU]/L (Abnormal) Range: 0-32 AST (SGOT) 57 [iU]/L (Abnormal) Range: 0-40 Alkaline Phosphatase 100 [iU]/L (Normal) Range: 39-117 Bilirubin, Direct 0.14 mg/dL (Normal) Range: 0.00-0.40 Bilirubin, Total 0.4 mg/dL (Normal) Range: 0.0-1.2 Albumin 4.1 g/dL (Normal) Range: 3.5-4.8 Protein, Total 6.8 g/dL (Normal) Range: 6.0-8.5 64-Vbr-962180:14 HEPATITIS PANEL (77798) Comments: PATIENT NOT FASTINGPERFORMED BY: [employer] Sazsxb7399 [facility] [id number] Hep C Virus Ab <0.1 {s/co_ratio} (Normal) Range: 0.0-0.9 Comments: Negative: < 0.8 Indeterminate: 0.8 - 0.9 Positive: > 0.9 . The CDC recommends that a positive HCV antibody result be followed up with a HCV Nucleic Acid Amplification test (807626). Hep B Core Ab, IgM Negative (Normal) HBsAg Screen Negative (Normal) Hep A Ab, IgM Negative (Normal) 29-Iol-532142:14 ANTIMITOCHONDRIAL ANTIBODY Comments: PATIENT NOT FASTINGPERFORMED BY: [facility] Gibaod7027 [facility] [id number] (48857) Mitochondrial (M2) Antibody <20.0 {Units} (Normal) Range: 0.0-20.0 Comments: Negative 0.0 - 20.0 Equivocal 20.1 - 24.9 Positive >24.9 . Mitochondrial (M2) Antibodies are found in 90-96% of patients with primary biliary cirrhosis. 65-Izs-504761:14 TRANSFERRIN (14840) Comments: PATIENT NOT FASTINGPERFORMED BY: [facility]6370 [facility] [id number] Transferrin 226 mg/dL (Normal) Range: 200-370 63-Ses-514558:14 GGT (GAMMA GLUTAMYLTRANSFERASE) Comments: PATIENT NOT FASTINGPERFORMED BY: [facility]6370 [facility] [id number] (81046) GGT 59 [iU]/L (Normal) Range: 0-60 12-Ebf-890981:14 FERRITIN (92905) Comments: PATIENT NOT FASTINGPERFORMED BY: [facility] Losriz2341 [facility] [id number] Ferritin, Serum 545 ng/mL (Abnormal) Range: 15-150 57-Cuj-460297:14 CMV IGM ANTBDY (76352) Comments: PATIENT NOT FASTINGPERFORMED BY: [facility] Xawbev7336 [facility] [id number] Cytomegalovirus (CMV) Ab, IgM <30.0 AU/mL (Normal) Range: 0.0-29.9 Comments: Negative <30.0 Equivocal 30.0 - 34.9 Positive >34.9 A positive result is generally indicative of acute infection, reactivation or persistent IgM production. 71-Cgp-561055:14 CERULOPLASMIN (58114) Comments: PATIENT NOT FASTINGPERFORMED BY: [facility] Jmwcdp3247 [facility] [id number] Ceruloplasmin 26.3 mg/dL (Normal) Range: 19.0-39.0 43-Aer-215554:14 ASM (ANTI SMOOTH MUSCLE Comments: PATIENT NOT FASTINGPERFORMED BY: CORTEZ Griffin Xfphyk5367 [address] [facility]in [place] [id number] ANTIBODY) (32012) Actin (Smooth Muscle) Antibody 5 {Units} (Normal) Range: 0-19 Comments: Negative 0 - 19 Weak positive 20 - 30 Moderate to strong positive >30 . Actin Antibodies are found in 52-85% of patients with autoimmune hepatitis or chronic active hepatitis and in 22% of patients with primary biliary cirrhosis. 21-Hmi-953678:14 MELI (ANTINUCLEAR ANTIBODY) Comments: PATIENT NOT FASTINGPERFORMED BY: CORTEZ [facility] Ohlqxn1277 [address] [facility] [id number] (51352) MELI Direct Negative (Normal) 85-Pps-872460:33 HgA1C , Office (50000) HgA1C , Office 7.2 % (Abnormal) Range: 4.6 - 7.1 34-Gsf-024263:38 MELI (ANTINUCLEAR ANTIBODY) Comments: PATIENT NOT FASTINGPERFORMED BY: [facility] Adyfvo8825 [address] [facility] [id number] (75347) MELI Direct Negative (Normal) 81-Cok-081159:38 VITAMIN B-12 (CYANOCOBALAMIN) Comments: PATIENT NOT FASTINGPERFORMED BY: [facility] Rytijp7600 [facility] [id number] (36381) Vitamin B12 463 pg/mL (Normal) Range: 232-1245 83-Ixh-604074:38 TSH (32763) Comments: PATIENT NOT FASTINGPERFORMED BY: [facility] Bsieln3253 [address] [facility] [id number] TSH 0.062 {uIU/mL} (Abnormal) Range: 0.450-4.500 98-Szt-118477:38 SED RATE ERYTHROCYTE (01378) Comments: PATIENT NOT FASTINGPERFORMED BY: CORTEZ [facility] Twqakf3594 [address] [facility] [id number] Sedimentation Rate-Westergren 7 mm/h (Normal) Range: 0-40 32-Anb-021102:38 METABOLIC PANEL, COMPREHENSIVE Comments: PATIENT NOT FASTINGPERFORMED BY: [facility] Guredu8311 [facility] [id number] (58796) ALT (SGPT) 52 [iU]/L (Abnormal) Range: 0-32 [...] 8-27 Glucose 134 mg/dL (Abnormal) Range: 65-99 01-Ovb-714053:38 C-REACTIVE PROTEIN (97840) Comments: PATIENT NOT FASTINGPERFORMED BY: LabCoSaint Clare's Hospital at SussexTpogcl8935 [facility] [id number] C-Reactive Protein, Quant 4.8 mg/L (Normal) Range: 0.0-4.9 63-Xxc-185708:38 CBC (AUTO) (02169) Comments: PATIENT NOT FASTINGPERFORMED BY: LabCoSaint Clare's Hospital at SussexRxqagx2949 [facility] [id number] Platelets 248 {x10E3/uL} Range: 150-379 (Normal) RDW [...] mg/L (Abnormal) Comments: PATIENT NOT FASTINGPERFORMED BY: [employer] [facility] [id number] BY: [address] [id number] 2:25 Serum Range: 0.6-2.4 Comments: Siemens EUCODIS Bioscienceulite 2000 Immunochemiluminometric assay (ICMA) 3-Zpu-559297:25 Immunoglobulins Comments: PATIENT NOT FASTINGPERFORMED BY: [employer]6370 [facility] [id number] BY: [employer] [id number] Iga/Ige/Igg/Igm (GAME) (29051) Immunoglobulin E, Total 259 {IU/mL} (Abnormal) Range: 0-100 Immunoglobulin M, Qn, Serum 113 mg/dL (Normal) Range: 26-217 Immunoglobulin A, Qn, Serum 130 mg/dL (Normal) Range: 64-422 Immunoglobulin G, Qn, Serum 837 mg/dL (Normal) Range: 700-1600 8-Kfd-870202:25 LDH (LD) (LACTATE Comments: PATIENT NOT FASTINGPERFORMED BY: [employer] [id number] BY: [address] [id number] DEHYDROGENASE) (94391) LDH 195 [iU]/L (Normal) Range: 119-226 8-Juf-743798:25 METABOLIC PANEL, Comments: PATIENT NOT FASTINGPERFORMED BY: [facility] BiotransAngela [place] 1860170 [facility] [id number] BY: Relatient[address] [id number] COMPREHENSIVE (87000) ALT (SGPT) 47 [iU]/L (Abnormal) Range: 0-32 [...] 8-27 Glucose 139 mg/dL (Abnormal) Range: 65-99 1-Mtg-234219:25 CBC, PLATELETS & AUT DIFF Comments: PATIENT NOT FASTINGPERFORMED BY: [employer] BiotransAng[place] 1860170 [facility] [id number] BY: Rel[address]ient[address] [id number] (32826) Immature Grans (Abs) 0.0 {x10E3/uL} (Normal) Range: [...] 3.77-5.28 WBC 7.2 {x10E3/uL} (Normal) Range: 3.4-10.8 54-Zsw-335267:28 Microscopic Examination Comments: PATIENT NOT FASTINGPERFORMED BY: PROVECTUS PHARMACEUTICALSNov[facility] [id number] Bacteria None seen (Normal) Mucus Threads Present (Normal) Cast Type Hyaline casts (Normal) Casts Present {/lpf} (Abnormal) Epithelial Cells (non renal) 0-10 {/hpf} (Normal) Range: 0 - 10 RBC 0-2 {/hpf} (Normal) Range: 0 - 2 WBC >30 {/hpf} (Abnormal) Range: 0 - 5 26-Acz-356086:24 URINE RANI CULTURE-RADHA COL Comments: PATIENT NOT FASTINGPERFORMED BY: [employer] SoundFitNovant Health Thomas[facility] Center [id number] Information: SRC:UC COUNT (82004) Antimicrobial MIHEAD (Normal) Comments: S = Susceptible; I = Intermediate; R = Resistant P = Positive; N = Negative MICS are expressed in micrograms per mL Antibiotic RSLT#1 RSLT#2 RS Susceptibility LT#3 RSLT#4Amoxicillin/Clavulanic Acid SAmpicillin RCefepime SCeftriaxone SCefuroxime SCephalothin SCiprofloxacin SGentamicin SImipenem SNitrofurantoin SPiperacillin RTetracycline STobram ycin STrimethoprim/Sulfa S Result 1 Raoultella Comments: 5,000 Colonies/mL planticola (Abnormal) Urine Final report Culture,Comprehensive (Abnormal) 63-Bsu-198141:28 MICROALBUMIN: CREATININE RATIO Comments: PATIENT NOT FASTINGPERFORMED BY: [facility] BiotransSaint Clare's Hospital at SussexIzlmua8306 [facility] [id number] (00600) AND (00252) Alb/Creat Ratio 215.8 {mg/g_creat} (Abnormal) Range: 0.0-30.0 Albumin, Urine 245.4 ug/mL (Normal) Creatinine, Urine 113.7 mg/dL (Normal) 71-Uis-717813:28 URINALYSIS, W/ MICRO (96913) Comments: PATIENT NOT FASTINGPERFORMED BY: [facility] Center6370 [facility] [id number] Microscopic Examination See below: (Normal) Comments: Microscopic was indicated and was performed. Nitrite, Urine Negative (Normal) Urobilinogen,Semi-Qn 0.2 mg/dL (Normal) Range: 0.2-1.0 Bilirubin Negative (Normal) Occult Blood Negative (Normal) Ketones Negative (Normal) Glucose Trace (Abnormal) Protein 1+ (Abnormal) WBC Esterase 1+ (Abnormal) Appearance Clear (Normal) Urine-Color Yellow (Normal) pH 5.5 (Normal) Range: 5.0-7.5 Specific Jackson 1.025 (Normal) Range: 1.005-1.030 83-Wac-436789:28 METABOLIC PANEL, COMPREHENSIVE Comments: PATIENT NOT FASTINGPERFORMED BY: [place] 0521070 [facility] [id number] (63968) ALT (SGPT) 37 [iU]/L (Abnormal) Range: 0-32 [...] Glucose, Serum 179 mg/dL (Abnormal) Range: 65-99 23-Fjl-958553:28 CBC, PLATELETS & AUT DIFF Comments: PATIENT NOT FASTINGPERFORMED BY: [facility] Rwtoga7110 [facility] [id number] (02710) Immature Grans (Abs) 0.0 {x10E3/uL} (Normal) Range: [...] 3.77-5.28 WBC 9.3 {x10E3/uL} (Normal) Range: 3.4-10.8 88-Hgb-552668:28 TSH (THYROID STIMULATING Comments: PATIENT NOT FASTINGPERFORMED BY: [facility] BiotransSaint Clare's Hospital at SussexEvdfmr9352 [facility] [id number] HORMONE) (12212) TSH 23.220 {uIU/mL} (Abnormal) Range: 0.450-4.500 21-Cub-452020:28 LIPID PANEL (06034) Comments: PATIENT NOT FASTINGPERFORMED BY: [facility] BiotransSaint Clare's Hospital at SussexJwjbco5938 [facility] [id number] LDL/HDL Ratio 1.7 {ratio_units} (Normal) Range: 0.0-3.2 Comments: LDL/HDL Ratio Men Women 1/2 Avg.Risk 1.0 1.5 Av g.Risk 3.6 3.2 2X Avg.Risk 6.2 5.0 3X Avg.Risk 8.0 6.1 LDL Cholesterol Calc 83 mg/dL (Normal) Range: 0-99 VLDL Cholesterol Priscilla 42 mg/dL (Abnormal) Range: 5-40 HDL Cholesterol 48 mg/dL (Normal) Triglycerides 208 mg/dL (Abnormal) Range: 0-149 Cholesterol, Total 173 mg/dL (Normal) Range: 100-199 48-Dai-725386:28 CALCIFEDIOL (71331) Comments: PATIENT NOT FASTINGPERFORMED BY: [facility] Uoiaos[address] [place] [id number] Vitamin D, 25-Hydroxy 25.4 ng/mL (Abnormal) Range: 30.0-100.0 Comments: Vitamin D deficiency has been defined by the [place] ofMedicine and an Endocrine Society practice guideline as alevel of serum 25-OH vitamin D less than 20 ng/mL (1,2).The Endocrine Society went on to further define vitamin Dinsufficiency as a level between 21 and 29 ng/mL (2).1. IOM ([place] of Medicine). 2010. Dietary reference intakes for calcium and D. [place]: The National Academies Press.2. Rachel MF, Yael MARLEY, Dunia HERRERA, et al. Evaluation, treatment, and prevention of vitamin D deficiency: an Endocrine Society clinical practice guideline. JCEM. 2010; 96(7):1911-30. 95-Ylh-140528:40 Basic Metabolic Profile (BMP) Comments: 'TROP' Serial specimen #1, #2, #3, or #4: [address] [place] [address] [address] [place], [address] GAP 11 (Normal) Range: 5-15 CO2 24.0 [...] 126 mg/dLsuggests DIABETES MELLITUS per A.D.A. criteria. 60-Bze-181706:40 BNP,B-Type NATRIURETIC PEPTIDE Comments: [facility] Tbkeqyjtmb[address] [place], [place], [address] B-TYPE SANJU PEP 13.3 pg/mL (Normal) Range: 0-100 28-Eto-030851:40 CBC W/Diff, Automated Comments: [facility] Sxbvxzziel79[address] [place], [place], [address] Absolute Lymph 1.65 {X10_3/ul} (Normal) Range: 0.83-4.51 [...] 4.2-5.4 WBC 4.1 K/mm3 (Abnormal) Range: 4.4-11.0 31-Ipg-984809:40 Troponin-I Comments: 'TROP' Serial specimen #1, #2, #3, or #4: [address] [place] [address] [address] [place], [address] TROPONIN-I < 0.02 ng/mL (Normal) Comments: TROPONIN-I EXPECTED VALUES <0.05 NEGATIVE 0.06 - 0.59 AT RISK OF [place] > OR = 0.60 SUGGEST [place] 71-Htb-094335:08 Microscopic Examination Comments: PATIENT WAS FASTINGPERFORMED BY: [employer]6370 [facility] [id number] Bacteria Few (Normal) Mucus Threads Present (Normal) Cast Type Hyaline casts (Normal) Casts Present {/lpf} (Abnormal) Epithelial Cells (non renal) 0-10 {/hpf} (Normal) Range: 0 - 10 RBC 0-2 {/hpf} (Normal) Range: 0 - 2 WBC 11-30 {/hpf} (Abnormal) Range: 0 - 5 95-Qii-965097:08 CALCIFIDIOL (94670) VIT D 25 Comments: PATIENT WAS FASTINGPERFORMED BY: LabEmbrace Pet Insurancerp Snjgfj4187 [facility] [id number] Vitamin D, 25-Hydroxy 33.5 ng/mL (Normal) Range: 30.0-100.0 Comments: Vitamin D deficiency has been defined by the [place] ofMedicine and an Endocrine Society practice guideline as alevel of serum 25-OH vitamin D less than 20 ng/mL (1,2).The Endocrine Society went on to further define vitamin Dinsufficiency as a level between 21 and 29 ng/mL (2).1. IOM ([place] of Medicine). 2010. Dietary reference intakes for calcium and D. [place]: The National Academies Press.2. Rachel MF, Yael MARLEY, Dunia HERRERA, et al. Evaluation, treatment, and prevention of vitamin D deficiency: an Endocrine Society clinical practice guideline. JCEM. 2010; 96(7):1911-30. 23-Zmu-858499:08 TSH (27338) Comments: PATIENT WAS FASTINGPERFORMED BY: [facility]6370 [facility] [id number] TSH 3.700 {uIU/mL} (Normal) Range: 0.450-4.500 92-Fhi-660999:08 LIPID PANEL (15820) Comments: PATIENT WAS FASTINGPERFORMED BY: [facility]6370 [facility] [id number] LDL/HDL Ratio 1.8 {ratio_units} (Normal) Range: 0.0-3.2 Comments: LDL/HDL Ratio Men Women 1/2 Avg.Risk 1.0 1.5 Av g.Risk 3.6 3.2 2X Avg.Risk 6.2 5.0 3X Avg.Risk 8.0 6.1 LDL Cholesterol Calc 84 mg/dL (Normal) Range: 0-99 VLDL Cholesterol Priscilla 49 mg/dL (Abnormal) Range: 5-40 HDL Cholesterol 46 mg/dL (Normal) Triglycerides 243 mg/dL (Abnormal) Range: 0-149 Cholesterol, Total 179 mg/dL (Normal) Range: 100-199 14-Lwx-532822:08 URINALYSIS, W/ MICRO (61130) Comments: PATIENT WAS FASTINGPERFORMED BY: [facility]6370 [facility] [id number] Microscopic Examination See below: (Normal) Comments: Microscopic was indicated and was performed. Nitrite, Urine Negative (Normal) Urobilinogen,Semi-Qn 0.2 mg/dL (Normal) Range: 0.2-1.0 Bilirubin Negative (Normal) Occult Blood Negative (Normal) Ketones Negative (Normal) Glucose Negative (Normal) Protein 2+ (Abnormal) WBC Esterase 1+ (Abnormal) Appearance Clear (Normal) Urine-Color Yellow (Normal) pH 5.5 (Normal) Range: 5.0-7.5 Specific Jackson >=1.030 (Abnormal) Range: 1.005-1.030 68-Sgk-855418:08 MICROALBUMIN: CREATININE RATIO Comments: PATIENT WAS FASTINGPERFORMED BY: [facility]6370 [facility] [id number] (17666) AND (02952) Microalb/Creat Ratio 246.3 {mg/g_creat} (Abnormal) Range: 0.0-30.0 Microalbumin, Urine 433.7 ug/mL (Normal) Comments: Results confirmed ondilution. Creatinine, Urine 176.1 mg/dL (Normal) 59-Fwo-328011:08 METABOLIC PANEL, COMPREHENSIVE Comments: PATIENT WAS FASTINGPERFORMED BY: [employer]70 [facility] JockNov[facility] [id number] (29885) ALT (SGPT) 26 [iU]/L (Normal) Range: 0-32 [...] Glucose, Serum 158 mg/dL (Abnormal) Range: 65-99 08-Eme-571638:08 CBC W/AUTO DIFF WBC (94762) Comments: PATIENT WAS FASTINGPERFORMED BY: [employer] LabCleverbug70 Let's JockNovant Health [facility] [id number] Immature Grans (Abs) 0.0 {x10E3/uL} (Normal) Range: [...] (Normal) Range: 3.4-10.8 :31 HgA1C , Office (51245) HgA1C , Office 6.6 % (Normal) Range: 4.6 - 7.1 :31 Blood Glucose , Office (99470) Blood Glucose , Office 143 (Normal) :45 CBC W/Diff, Automated Comments: [facility] [address]xfw[address] [place], [place], [address] Absolute Lymph 1.46 {X10_3/ul} (Normal) Range: 0.83-4.51 [...] 4.2-5.4 WBC 12.9 K/mm3 (Abnormal) Range: 4.4-11.0 5-Ahw-127225:45 Comprehensive Metabolic Profil Comments: [facility] [address] [place], [place], [address] GAP 8 (Normal) Range: 5-15 CO2 27.0 [...] 126 mg/dLsuggests DIABETES MELLITUS per A.D.A. criteria. 9-Cje-635851:45 Prothrombin Time w/INR Comments: [facility] [address] [place], [place], [address] INR 0.9 (Normal) PROTIME 11.6 s (Abnormal) Range: 11.7-14.9 9-Hjc-728144:12 HgA1C , Office (93760) HgA1C , Office 6.5 % (Normal) Range: 4.6 - 7.1 2-Ebf-426303:12 Blood Glucose , Office (46925) Blood Glucose , Office 122 (Normal) 49-Ebj-97325:39 Lipid Profile Comments: [facility] [address] [place], [place], [address] VLDL 39 mg/dL (Normal) Range: 5-40 LDL [...] report for address and phone number METHYLM 087144 215 nmol/L (Normal) Range: 0-378 Comments: Performed at: [address] [id number] Director: Frantz Josue MD, Phone: [phone] :39 Vitamin B12 531 pg/mL (Normal) Comments: [facility] [address] [place], [address] Range: 211-911 :39 Vitamin D,25 Hydroxy Comments: [facility] [address] [place], [address] Vitamin D 25-OH 44.7 ng/mL (Normal) Comments: Vitamin D 25(OH) Status Range Deficiency <20 ng/mL (50nmol/L) Insuffciency 20 - 30 ng/mL (50 - 75 nmol/L) Sufficiency 30 - 100 ng/mL (75 - 250 nmol/L) Toxicity >100 ng/mL (>250 nmol/L) :29 Bedside Glucose Comments: [facility] LaboratoryPoint of [address]yl[address] [place] [address] BEDSIDE GLU 139 mg/dL (Abnormal) Range: 70-110 Comments: No Action RequiredMANAGEMENT OF PATIENT CARE PER NURSING PROTOCOL COLON BIOPSY (CHOOSE See Note (Normal) Comments: [facility] [address] [place], [address] :54 SITE) Comments: Patient: MARICRUZ GRIGSBY : 1940 (76/F) Acct Num: [id number] Phys: Constantine Saunders Unit Num: [id number] Loc: LABSPEC Specimen: [id number] Received: 11/05/16 - 163 Spe c Type: [...] one cassette. / RY:edita 11/06/16 TC:1 CPT: 42850 x2 HEADER OPERATION: Colonoscopy with polypectomy PRE-OP [...] Signed Zane Elliott 11/07/16 <signature on file> 44-Mlg-155671:47 CBC W/Diff, Automated Comments: [facility] [address] [place], [place], [address] Absolute Lymph 1.88 {X10_3/ul} (Normal) Range: 0.83-4.51 [...] 4.2-5.4 WBC 8.8 K/mm3 (Normal) Range: 4.4-11.0 89-Rjy-247496:42 Comprehensive Metabolic Profil Comments: Order Date: 10/10/16Order Info: 0786-1 - *CMP Complete Metabolic PanelOrder Info: [id number] - *IBC Iron \E AND E\ Total Iron Binding CapacityOrder Info: 2276-4 - *FerritinComments: Reason:Order Date: 10/10/16Order Info: 61438-6 - *KAPLAMBDA - [place] Lamda Light ChainsComments: Reason:[facility] [address] [facility] [place], [place], [address] GAP 9 (Normal) Range: 5-15 CO2 28.0 [...] <126 mg/dLsuggests IMPAIRED HOMEOSTASIS per A.D.A. criteria. 56-Zhp-843232:42 Ferritin Comments: Order Date: 10/10/16Order Info: 0786-1 - *CMP Complete Metabolic PanelOrder Info: 26158-0 - *IBC Iron \E AND E\ Total Iron Binding CapacityOrder Info: 2276-4 - *FerritinComments: Reason:Order Date: 10/10/16Order Info: 64146-9 - *KAPLAMBDA - [place] Lamda Light ChainsComments: Reason:[facility] [address] [place], [place], [address] FERRITIN 45 ng/mL (Normal) Range: 8-252 36-Jlf-860808:42 DEEPALI + Protein Elect, Serum Comments: Order Date: 10/10/16Order Info: [id number] - *IMEL DEEPALI + Prot Elec, Serum 1495Order Info: 00634-8 - *KAPLAMBDA - [place] Lamda Light ChainsOrder Date: 10/10/16Order Info: [id number] - *IMEL DEEPALI + Prot Elec, Serum 1495Order Info: [id number] - *KAPLAMBDA - [place] Lamda Light ChainsOrder Date: 10/10/16Order Info: [id number] - *KAPLAMBDA - [place] Lamda Light ChainsIs Patient Fasting? NComments: Reason:[facility] (refer to report for specific site)refer to report for address and phone number NOTE: Comment (Normal) Comments: Protein electrophoresis scan will follow via computer,mail, or hand twister delivery. DEEPALI RESULT,S Comment (Normal) Comments: Immunofixation shows IgG monoclonal protein with lambdalight chain specificity. A/G RATIO 1.4 (Normal) Range: 0.7-1.7 GLOBULIN, TOTAL 2.8 g/dL (Normal) Range: 2.2-3.9 M-SPIKE 0.3 g/dL (Abnormal) GAMMA GLOBULIN 0.8 g/dL (Normal) Range: 0.4-1.8 BETA GLOBULIN 0.9 g/dL (Normal) Range: 0.7-1.3 BYMCB-7-[facility] 0.9 g/dL (Normal) Range: 0.4-1.0 QFPVE-0-XDCO 0.2 g/dL (Normal) Range: 0.0-0.4 ALBUMIN 3.7 g/dL (Normal) Range: 2.9-4.4 IMMUNOGL M 100 mg/dL (Normal) Range: 26-217 IMMUNO A 106 mg/dL (Normal) Range: 64-422 IMMUNO G 693 mg/dL (Abnormal) Range: 700-1600 PROTEIN,TOTAL 6.5 g/dL (Normal) Range: 6.0-8.5 02-Xor-151883:42 Iron+Iron Binding Capacity Comments: Order Date: 10/10/16Order Info: 0786-1 - *CMP Complete Metabolic PanelOrder Info: 05188-2 - *IBC Iron \E AND E\ Total Iron Binding CapacityOrder Info: 2276-4 - *FerritinComments: Reason:Order Date: 10/10/16Order Info: 53081-3 - *KAPLAMBDA - [place] Lamda Light ChainsComments: Reason:[facility] [address] [place], [place], [address] IRON SATURATION 15.9 % (Normal) Range: 15.0-55.0 IRON 49 ug/dL (Abnormal) Range: 50-170 TIBC 309 ug/dL (Normal) Range: 250-450 01-Rzv-038148:42 [place] Lambda Light Chains Comments: Order Date: 10/10/16Order Info: 0282-1 - *IMEL DEEPALI + Prot Elec, Serum 1495Order Info: 28778-5 - *[place]DA - [place] Lamda Light ChainsOrder Date: 10/10/16Order Info: 0282-1 - *IMEL DEEPALI + Prot Elec, Serum 1495Order Info: [id number] - *[place]DA - [place] Lamda Light ChainsOrder Date: 10/10/16Order Info: 13488-0 - *[place]DA - [place] Lamda Light ChainsIs Patient Fasting? NComments: Reason:[facility] (refer to report for specific site)refer to report for address and phone number KAPPA/LAMBDA % 0.98 (Normal) Range: 0.26-1.65 Comments: Performed at: - [facility] [address] [id number] Director: Constantine Christianson PhD, Phone: [phone] FR LAMBDA LT CH 19.06 mg/L (Normal) Range: 5.71-26.30 FR KAPPA LT CHN 18.62 mg/L (Normal) Range: 3.30-19.40 16-Psd-284824:06 VITAMIN B-12 (CYANOCOBALAMIN) Comments: PATIENT NOT FASTINGPERFORMED BY: [facility] Hgfvoc2222 [facility] [id number] (21881) Vitamin B12 709 pg/mL (Normal) Range: 211-946 76-Wnf-030174:45 Blood Glucose , Office (22049) Blood Glucose , Office 104 (Normal) 62-Txy-800476:45 HgA1C , Office (22105) HgA1C , Office 6.7 % (Normal) Range: 4.6 - 7.1 :54 CBC W/Diff, Automated Comments: [facility] [address] [place], [place], [address] Absolute Lymph 1.51 {X10_3/ul} (Normal) Range: 0.83-4.51 [...] 4.2-5.4 WBC 7.0 K/mm3 (Normal) Range: 4.4-11.0 12-Eze-30608:54 Comprehensive Metabolic Profil Comments: [facility] [address] [place], [place], [address] GAP 8 (Normal) Range: 5-15 CO2 28.0 [...] per A.D.A. criteria. :54 Lipid Profile Comments: [facility] [address] [place], [address] VLDL 38 mg/dL (Normal) Range: 5-40 LDL [...] High Risk :54 Microalb:Creat Ratio,Random UR Comments: [facility] [address] [place], [address] MALB:CREAT 223.2 {mg/g_CRE} (Abnormal) MICROALBUMIN,UR 250.0 mg/L (Normal) UR CREAT 112.00 mg/dL (Normal) :54 Thyroid Stim Hormone (TSH) Comments: [facility] [address] [place], [address] TSH 1.13 {uIU/mL} (Normal) Range: 0.358-3.74 :54 Urinalysis, Complete Comments: How was Urine Obtained? CLEAN [facility] [address] [place], [address] MUCUS, URINE 0 SEEN {/hpf} (Normal) [...] Yellow (Normal) :54 Vitamin D,25 Hydroxy Comments: [facility] [address] [place], [address] Vitamin D 25-OH 31.6 ng/mL (Normal) Comments: Vitamin D 25(OH) Status Range Deficiency <20 ng/mL (50nmol/L) Insuffciency 20 - 30 ng/mL (50 - 75 nmol/L) Sufficiency 30 - 100 ng/mL (75 - 250 nmol/L) Toxicity >100 ng/mL (>250 nmol/L) 79-Xyl-903728:07 VITAMIN B-12 (CYANOCOBALAMIN) Comments: PATIENT NOT FASTINGPERFORMED BY: [facility]6370 [facility] [id number] (77044) Vitamin B12 1119 pg/mL (Abnormal) Range: 211-946 27-Gsw-584118:23 Microscopic Examination Comments: PATIENT WAS FASTINGPERFORMED BY: [place] 0[address]1070 [facility] [id number] Bacteria Few (Normal) Mucus Threads Present (Normal) Epithelial Cells (non renal) 0-10 {/hpf} (Normal) Range: 0 - 10 RBC 0-2 {/hpf} (Normal) Range: 0 - 2 WBC >30 {/hpf} (Abnormal) Range: 0 - 5 28-Xxs-002311:23 VITAMIN B-12 (CYANOCOBALAMIN) Comments: PATIENT WAS FASTINGPERFORMED BY: [facility]6370 [facility] [id number] (38187) Vitamin B12 >2000 pg/mL (Abnormal) Range: 211-946 50-Gja-196079:23 TSH (34605) Comments: PATIENT WAS FASTINGPERFORMED BY: [facility]6370 [facility] [id number] TSH 5.380 {uIU/mL} (Abnormal) Range: 0.450-4.500 83-Gbw-388220:23 URINALYSIS, W/ MICRO (00400) Comments: PATIENT WAS FASTINGPERFORMED BY: [facility]6370 [facility] [id number] Microscopic Examination See below: (Normal) Comments: Microscopic was indicated and was performed. Nitrite, Urine Negative (Normal) Urobilinogen,Semi-Qn 0.2 mg/dL (Normal) Range: 0.2-1.0 Bilirubin Negative (Normal) Occult Blood Negative (Normal) Ketones Negative (Normal) Glucose Negative (Normal) Protein Trace (Normal) WBC Esterase 2+ (Abnormal) Appearance Clear (Normal) Urine-Color Yellow (Normal) pH 6.0 (Normal) Range: 5.0-7.5 Specific Jackson 1.022 (Normal) Range: 1.005-1.030 15-Vvg-823745:23 MICROALBUMIN: CREATININE RATIO Comments: PATIENT WAS FASTINGPERFORMED BY: [facility]6370 [facility] [id number] (00465) AND (98806) Microalb/Creat Ratio 24.2 {mg/g_creat} (Normal) Range: 0.0-30.0 Microalbumin, Urine 35.4 ug/mL (Normal) Creatinine, Urine 146.0 mg/dL (Normal) 05-Ogj-364753:23 METABOLIC PANEL, COMPREHENSIVE Comments: PATIENT WAS FASTINGPERFORMED BY: [facility]otransSaint [facility] SussexNrcqcp0281 [facility] [id number] (44250) ALT (SGPT) 25 [iU]/L (Normal) Range: 0-32 [...] Glucose, Serum 143 mg/dL (Abnormal) Range: 65-99 68-Wki-725647:23 CBC W/AUTO DIFF WBC (42960) Comments: PATIENT WAS FASTINGPERFORMED BY: [facility]CoSaint [facility] at SussexXwbgbe4755 [facility] [id number] Immature Grans (Abs) 0.0 {x10E3/uL} (Normal) Range: [...] 3.77-5.28 WBC 7.4 {x10E3/uL} (Normal) Range: 3.4-10.8 76-Tgv-645004:23 CALCIFIDIOL (31931) VIT D 25 Comments: PATIENT WAS FASTINGPERFORMED BY: [facility]CoSaint [facility] Hospital at SussexIaoeuv2443 [facility] [id number] Vitamin D, 25-Hydroxy 28.9 ng/mL (Abnormal) Range: 30.0-100.0 Comments: Vitamin D deficiency has been defined by the [place] of[facility] and an Endocrine Society practice guideline as alevel of serum 25-OH vitamin D less than 20 ng/mL (1,2).The Endocrine Society went on to further define vitamin Dinsufficiency as a level between 21 and 29 ng/mL (2).1. IOM ([place] of Medicine). 2010. Dietary reference intakes for calcium and D. [place]: The National Academies Press.2. Rachel MF, Yael NC, Dunia HERRERA, et al. Evaluation, treatment, and prevention of vitamin D deficiency: an Endocrine Society clinical practice guideline. JCEM. 2010; 96(7):1911-30. :22 HgA1C , Office (93715) HgA1C , Office 7.1 % (Normal) Range: 4.6 - 7.1 :22 Blood Glucose , Office (67489) Blood Glucose , Office 171 (Normal) 1-Nyw-089289:10 Basic Metabolic Profile (BMP) Comments: Serial Specimen #1, #2 or #3? 1'TROP' Serial specimen #1, #2, #3, or #4: 1[facility] [address] [place], [address] GAP 8 (Normal) Range: 5-15 CO2 28.0 [...] 126 mg/dLsuggests DIABETES MELLITUS per A.D.A. criteria. 3-Zvz-218342:10 CBC W/Diff, Automated Comments: [facility] [address] [place], [place], [address] Absolute Lymph 1.32 {X10_3/ul} (Normal) Range: 0.83-4.51 [...] Serial specimen #1, #2, #3, or #4: [address] [place] [address] [address] [place], [address] CKRI 1.3 % (Normal) Range: [...] Serial specimen #1, #2, #3, or #4: [address] [place] [address] [address] [place], [address] TROPONIN-I < 0.02 ng/mL (Normal) Comments: TROPONIN-I EXPECTED VALUES <0.05 NEGATIVE 0.06 - 0.59 AT RISK OF [place] > OR = 0.60 SUGGEST [place] :55 Blood Glucose , Office (61469) Blood Glucose , Office 117 (Normal) :36 HgA1C , Office (95683) HgA1C , Office 7.1 % (Normal) Range: 4.6 - 7.1 :52 CBC W/Diff, Automated Comments: CBCD WITH WBC PER ORDERJ.W. [facility] Hospital [address] [place], [address] Absolute Lymph 1.67 {X10_3/ul} (Normal) [...] Range: 4.4-11.0 30-Nov-20156:52 Comprehensive Metabolic Profil Comments: [facility] [address] [place], [place], [address] GAP 10 (Normal) Range: 5-15 CO2 26.0 [...] per A.D.A. criteria. :52 Immunofixation Urine Comments: [facility] (refer to report for specific site)refer to report for address and phone number DEEPALI Urine Comment (Normal) Comments: Immunofixation shows IgG monoclonal protein with lambdalight chain specificity.Bence Jorge Protein positive; lambda type.Performed at: [place] [address] 1269[facility] Dire ctor: Constantine Christianson PhD, Phone: [phone] :[phone] Immunofixation, Serum Comments: [facility] (refer to report for specific site)refer to report for address and phone number DEEPALI RESULT,S Comment (Normal) Comments: Immunofixation shows IgG monoclonal protein with lambdalight chain specificity. IMMUNOGL M 112 mg/dL (Normal) Range: 26-217 IMMUNO A 110 mg/dL (Normal) Range: 64-422 IMMUNO G 783 mg/dL (Normal) Range: 700-1600 :52 [place] Lambda Light Chains Comments: [facility] (refer to report for specific site)refer to report for address and phone number KAPPA/LAMBDA % 1.03 (Normal) Range: 0.26-1.65 FR LAMBDA LT CH 21.11 mg/L (Normal) Range: 5.71-26.30 FR KAPPA LT CHN 21.66 mg/L (Abnormal) Range: 3.30-19.40 :52 Lipid Profile Comments: [facility] [address] [place], [address] ; review OV 12/02/15 VLDL 35 mg/dL [...] High Risk :52 Microalb:Creat Ratio,Random UR Comments: [facility] [address] [place], [address] MALB:CREAT 44.5 {mg/g_CRE} (Abnormal) MICROALBUMIN,UR 68.1 mg/L (Normal) UR CREAT 153.00 mg/dL (Normal) :52 Vitamin B12 268 pg/mL (Normal) Comments: [facility] [address] [place], [address] Range: 211-911 Comments: ADDENDA: normal and has f/u this saturday:52 Vitamin D,25 Hydroxy Comments: [facility] [address] [place], [address] Vitamin D 25-OH 48.8 ng/mL (Normal) Comments: Vitamin D 25(OH) Status Range Deficiency <20 ng/mL (50nmol/L) Insuffciency 20 - 30 ng/mL (50 - 75 nmol/L) Sufficiency 30 - 100 ng/mL (75 - 250 nmol/L) Toxicity >100 ng/mL (>250 nmol/L) :15 Basic Metabolic Profile (BMP) Comments: [facility] [address] [place], [address] GAP 10 (Normal) Range: 5-15 [...] A.D.A. criteria. :15 CBC W/Diff, Automated Comments: [facility] [address] [place], [address] RED CELL MORPH NORM C+C [...] 4.2-5.4 WBC 11.4 K/mm3 (Abnormal) Range: 4.4-11.0 17-Gme-872053:08 HgA1C , Office (55758) HgA1C , Office 6.8 % (Normal) Range: 4.6 - 7.1 5-Ops-741914:30 FERRITIN (49765) Comments: PATIENT WAS FASTINGPERFORMED BY: [employer]70 [facility] [id number] Ferritin, Serum 121 ng/mL (Normal) Range: 15-150 9-Ycm-068392:30 IRON (21039) Comments: PATIENT WAS FASTINGPERFORMED BY: [employer]70 [facility] [id number] Iron, Serum 56 ug/dL (Normal) Range: 35-155 [...] - 159 >60 years 27 - 139 1-Uxd-599203:30 TSH (65227) Comments: PATIENT WAS FASTINGPERFORMED BY: LabCoSaint [facility] Hospital at SussexKxupnw3145 [facility] [id number] TSH 1.660 {uIU/mL} (Normal) Range: 0.450-4.500 4-Svk-218189:30 LIPID PANEL (61194) Comments: PATIENT WAS FASTINGPERFORMED BY: LabCoSaint [facility] Hospital at SussexPlcdsu3752 [facility] [id number] LDL/HDL Ratio 2.1 {ratio_units} (Normal) Range: 0.0-3.2 [...] Cholesterol, Total 190 mg/dL (Normal) Range: 100-199 2-Djv-004164:30 METABOLIC PANEL, COMPREHENSIVE Comments: PATIENT WAS FASTINGPERFORMED BY: [facility] Hghurm2018 [facility] [id number] (04624) ALT (SGPT) 24 [iU]/L (Normal) Range: 0-32 [...] Glucose, Serum 122 mg/dL (Abnormal) Range: 65-99 5-Xis-126046:30 Vitamin D Hydroxy (57898) Comments: PATIENT WAS FASTINGPERFORMED BY: [address] [place] [id number] Vitamin D, 25-Hydroxy 25.3 ng/mL (Abnormal) Range: 30.0-100.0 Comments: Vitamin D deficiency has been defined by the [place] of[place]icine and an Endocrine Society practice guideline as alevel of serum 25-OH vitamin D less than 20 ng/mL (1,2).The Endocrine Society went on to further define vitamin Dinsufficiency as a level between 21 and 29 ng/mL (2).1. IOM ([place] of Medicine). 2010. Dietary reference intakes for calcium and D. [place]: The National Academies Press.2. Rachel MF, Yael NC, Dunia HERRERA, et al. Evaluation, treatment, and prevention of vitamin D deficiency: an Endocrine Society clinical practice guideline. JCEM. 2010; 96(7):1911-30. 3-Ore-500945:30 CBC W/AUTO DIFF WBC Comments: PATIENT WAS FASTINGPERFORMED BY: [facility]ACEUTICALSM[facility] [id number] Information: [id number] (85655) Immature Grans (Abs) 0.0 {x10E3/uL} (Normal) Range: [...] 3.77-5.28 WBC 8.2 {x10E3/uL} (Normal) Range: 3.4-10.8 9-Dty-823449:30 serum free light chains Comments: PATIENT WAS FASTINGPERFORMED BY: [facility]CoSaint [facility] at SussexPzlpkr1121 [facility] [id number] (02243) [place]/Lambda Ratio,S 0.81 (Normal) Range: 0.26-1.65 Free Lambda Lt Chains,S 17.93 mg/L (Normal) Range: 5.71-26.30 Free [place] Lt Chains,S 14.55 mg/L (Normal) Range: 3.30-19.40 5-Slw-831063:08 urine immunofixation (01833) Comments: PATIENT NOT FASTINGPERFORMED BY: LabCoSaint [facility] Hospital at SussexMwalyg5859 [facility] [id number] Information: SRC:UR [id number] DEEPALI Interpretation:U IFEGL (Normal) Comments: 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 4-Jrk-657051:30 serum immunofixation (46003) Comments: PATIENT WAS FASTINGPERFORMED BY: LabCoSaint [facility] Hospital at SussexEpaipj3930 [facility] [id number] Immunoglobulin M, Qn, Serum 99 mg/dL (Normal) Range: 40-230 Immunoglobulin A, Qn, Serum 107 mg/dL (Normal) Range: 91-414 Immunoglobulin G, Qn, Serum 814 mg/dL (Normal) Range: 700-1600 Immunofixation Result, Serum IFEGL (Normal) Comments: Immunofixation shows IgG monoclonal protein with lambda light chainspecificity. :49 CBC W/Diff, Automated Comments: [facility] [address] [place], [place], [address] Absolute Lymph 0.99 {X10_3/ul} (Normal) Range: 0.83-4.51 [...] K/mm3 (Normal) Range: 4.4-11.0 :49 Ferritin Comments: [facility] [address] [place], [address] FERRITIN 80 ng/mL (Normal) Range: 8-252 :49 Hemoglobin A1c Comments: [facility] [address] [place], [address] HGB A1C 6.4 % (Abnormal) Range: 4.2-6.3 :49 Iron Comments: [facility] [address] [place], [address] IRON 43 ug/dL (Abnormal) Range: 50-170 :49 Iron Binding Capacity,Total Comments: [facility] [address] [place], [address] TIBC 336 ug/dL (Normal) Range: 250-450 :49 Protein Electro.Ur-Random Comments: [facility] (refer to report for specific site)refer to report for address and phone number M-SPIKE,U Test not performed (Normal) GAMMA GLOB,U Test not performed (Normal) Comments: Test not performed BETA GLOB,U Test not performed (Normal) Comments: Test not performed SSIHU-3-XCCS,U Test not performed (Normal) Comments: Test not performed ESHBS-0-OGTJ,U Test not performed (Normal) Comments: Test not [...] electrophoresis scan will follow via computer,mail, or hand twister delivery. NOTE: Comment (Normal) Comments: The SPE [...] electrophoresis scan will follow via computer,mail, or hand twister delivery. A/G RATIO 1.5 (Normal) Range: 0.7-2.0 [...] 6.0-8.5 :49 Thyroid Stim Hormone (TSH) Comments: [facility] [address] [place], [place], [address] TSH 4.43 {uIU/mL} (Abnormal) Range: 0.358-3.74 :49 Vitamin B12 431 pg/mL (Normal) Comments: [facility] [address] [place], [place], [address] Range: 211-911 Comments: ADDENDA: has apt today :58 AFP, Tumor Marker Comments: Is [facility] ? [facility] (refer to report for specific site)refer to report for address and phone number AFP TUMOR 2253 4.9 ng/mL (Normal) Range: 0.0-8.3 Comments: Patricia ECLIA methodologyPerformed at: - [facility] [address] [id number] Director: Constantine Christianson PhD, Phone: [phone] :[phone] CBC W/Diff, Automated Comments: [facility] [address] [place], [place], [address] Absolute Lymph 1.46 {X10_3/ul} (Normal) Range: 0.83-4.51 [...] 4.2-5.4 WBC 7.3 K/mm3 (Normal) Range: 4.4-11.0 86-Lni-25420:58 Comprehensive Metabolic Profil Comments: [facility] [address] [place], [address] GAP 7 (Normal) Range: 5-15 [...] per A.D.A. criteria. :58 Lipid Profile Comments: [facility] [address] [place], [place], [address] ; non-emergent and has apth this week [...] :58 Vitamin B12 278 pg/mL (Normal) Comments: [facility] Wmnflikqfy1947 [facility] [place], [address] Range: 211-911 :58 Vitamin D,25 Hydroxy Comments: [facility] [address] [place], [address] Vitamin D 25-OH 38.4 ng/mL (Normal) Comments: Vitamin D 25(OH) Status Range Deficiency <20 ng/mL (50nmol/L) Insuffciency 20 - 30 ng/mL (50 - 75 nmol/L) Sufficiency 30 - 100 ng/mL (75 - 250 nmol/L) Toxicity >100 ng/mL (>250 nmol/L) 78-Bwl-250285:07 HgA1C , Office (50872) HgA1C , Office 6.5 % (Normal) Range: 4.6 - 7.1 :43 AFP, Tumor Marker Comments: Is Patient ? NTest performed at:[facility] Eejqtjiars8176 [facility] [place] [address] AFP TUMOR 2253 4.8 ng/mL (Normal) Range: 0.0-8.3 Comments: [employer] Remember ECLIA methodologyPerformed at: [employer] - [facility] [address] [id number] Director: Arnold Jefferson PhD, Phone: [phone] :43 CBC W/Diff, Automated Comments: Test performed at:[facility] O[address]zkgrbbdq4178 [facility] [place] [address] Absolute Lymph 1.16 {X10_3/ul} (Normal) [...] 4.2-5.4 WBC 5.6 K/mm3 (Normal) Range: 4.4-11.0 24-Tef-77118:43 Comprehensive Metabolic Profil Comments: Test performed at:[facility] [address] [place] [address] GAP 11 (Normal) Range: 5-15 CO2 24.0 [...] criteria. :43 Lipid Profile Comments: Test performed at:[facility] [address] [place] [address] VLDL 61 mg/dL (Abnormal) Range: 5-40 [...] :43 Microalb:Creat Ratio,Random UR Comments: Test performed at:[facility] [address] [place] [address] MALB:CREAT 15.9 {mg/g_CRE} (Normal) MICROALBUMIN,UR 19.2 mg/L (Normal) UR CREAT 120.3 mg/dL (Normal) :43 Thyroid Stim Hormone (TSH) Comments: Test performed at:[facility] [address] [place] [address] TSH 2.19 {uIU/mL} (Normal) Range: 0.358-3.74 :43 Vitamin B12 261 pg/mL (Normal) Comments: Test performed at:[facility] [address] [place] [address] Range: 211-911 Comments: ADDENDA: nl and pt has apt tomorrow :43 Vitamin D,25 Hydroxy Comments: Test performed at:[facility] [address] [place] [address] Vitamin D 25-OH 30.9 ng/mL (Normal) Comments: Vitamin D 25(OH) Status Range Deficiency <20 ng/mL (50nmol/L) Insuffciency 20 - 30 ng/mL (50 - 75 nmol/L) Sufficiency 30 - 100 ng/mL (75 - 250 nmol/L) Toxicity >100 ng/mL (>250 nmol/L) :38 HgA1C , Office (37473) HgA1C , Office 6.7 % (Normal) Range: 4.6 - 7.1 :56 AFP, Tumor Marker Comments: Is Patient ? NTest performed at:[facility] [address] [place] [address] ; appt 02/15 AFP TUMOR 2253 4.8 ng/mL (Normal) Range: 0.0-8.3 Comments: People to Remember ECLIA methodologyPerformed at: [facility] [address] [id number] Director: Arnold Jefferson PhD, Phone: [phone] :[phone] CBC W/Diff, Automated Comments: Test performed at:[facility] [address] [place] [address] Absolute Lymph 2.37 {X10_3/ul} (Normal) Range: [...] 4.4-11.0 :56 Lipid Profile Comments: Test performed at:[facility] [address] [place], [place] [id number] VLDL 26 mg/dL (Normal) Range: 5-40 LDL [...] :56 Partial Thromboplast Time Comments: Test performed at:[facility] [address] [place] [address] PTT 30.1 s (Normal) Range: 24.1-36.2 :56 Prothrombin Time w/INR Comments: Test performed at:[facility] [address] [place] [address] INR 1.0 (Normal) PROTIME 12.8 s (Normal) Range: 11.7-14.9 :56 Thyroid Stim Hormone (TSH) Comments: Test performed at:[facility] [address] [place] [address] TSH 5.17 {uIU/mL} (Abnormal) Range: 0.358-3.74 :56 Vitamin B12 293 pg/mL (Normal) Comments: Test performed at:[facility] [address] [place] [address] Range: 211-911 :56 Vitamin D,25 Hydroxy Comments: Test performed at:[facility] [address] [place] [address] Vitamin D 25-OH 32.0 ng/mL (Normal) Comments: Vitamin D 25(OH) Status Range Deficiency <20 ng/mL (50nmol/L) Insuffciency 20 - 30 ng/mL (50 - 75 nmol/L) Sufficiency 30 - 100 ng/mL (75 - 250 nmol/L) Toxicity >100 ng/mL (>250 nmol/L) :07 HgA1C , Office (47639) HgA1C , Office 6.3 % (Normal) Range: 4.6 - 7.1 :33 CBC W/Diff, Automated Comments: Test performed at:[facility] [address] [place] [address] ; non- emergent till apt Absolute [...] 4.2-5.4 WBC 7.3 K/mm3 (Normal) Range: 4.4-11.0 35-Phg-50044:33 Comprehensive Metabolic Profil Comments: Test performed at:[facility] [address] [place], [place] [id number] GAP 4 (Abnormal) Range: 5-15 CO2 28.0 [...] criteria. :33 Lipid Profile Comments: Test performed at:[facility] [address] [place] [address] VLDL 29 mg/dL (Normal) Range: [...] B12 394 pg/mL (Normal) Comments: Test performed at:[facility] [address] [facility] [place] [address] Range: 211-911 :33 Vitamin D,25 Hydroxy Comments: Test performed at:[facility] [address] [facility]. [place], [place] [id number] Vitamin D 25-OH 39.6 ng/mL (Normal) Comments: Vitamin D 25(OH) Status Range Deficiency <20 ng/mL (50nmol/L) Insuffciency 20 - 30 ng/mL (50 - 75 nmol/L) Sufficiency 30 - 100 ng/mL (75 - 250 nmol/L) Toxicity >100 ng/mL (>250 nmol/L) :10 HgA1C , Office (73389) HgA1C , Office 6.4 % (Normal) Range: [...] 4.2-5.4 WBC 6.0 K/mm3 (Normal) Range: 4.4-11.0 97-Zyl-33119:42 CMP GAP 5 (Normal) Range: 5-15 CO2 [...] CHOL 167 mg/dL (Normal) Comments: <200 mg/dL Hdfvycrka729-396 mg/dL Borderline>240 mg/dL High Risk TRIG 200 mg/dL (Abnormal) Range: 0-199 Comments: Serum Triglycerides Reference IntervalNormal <150 mg/dLBorderline high 150 - 199 mg/dLHigh 200 - 499 mg/ dLVery High > or = 500 mg/dL :42 TIBC 275 ug/dL (Normal) Range: 250-450 :42 TSH 2.12 {uIU/mL} (Normal) Range: 0.358-3.74 59-Iiq-144007:10 FERRITIN (17092) Comments: PATIENT NOT FASTINGPERFORMED BY: [facility] Rjdydr4513 [facility] [id number] Ferritin, Serum 133 ng/mL (Normal) Range: 15-150 71-Kfh-833378:10 IRON BINDING CAPACITY Comments: PATIENT NOT FASTINGPERFORMED BY: [facility] Xqxmhj1540 [facility] [id number] Information: [id number] (TIBC) (95180) Iron Saturation 20 % (Normal) Range: 15-55 Iron, Serum 62 ug/dL (Normal) Range: 35-155 UIBC 241 ug/dL (Normal) Range: 150-375 Iron Bind.Cap.(TIBC) 303 ug/dL (Normal) Range: 250-450 01-May-763034:10 VITAMIN B-12 (CYANOCOBALAMIN) Comments: PATIENT NOT FASTINGPERFORMED BY: [facility]CoSaint [facility] at SussexSohvby6632 [facility] [id number] (48550) Vitamin B12 421 pg/mL (Normal) Range: 211-946 :10 TSH (90594) Comments: PATIENT NOT FASTINGPERFORMED BY: [facility] Zgmbes8865 [facility] [id number] TSH 1.150 {uIU/mL} (Normal) Range: 0.450-4.500 97-Arn-361246:37 HgA1C , Office (97186) HgA1C , Office 6.1 % (Normal) Range: 4.6 - 7.1 7-Dwd-206828:10 CBC with manual diff Comments: PATIENT WAS FASTINGPERFORMED BY: [facility] Dosbxl6778 [facility] [id number] Information: [id number] ([address]) Immature Grans (Abs) 0.0 {x10E3/uL} (Normal) Range: [...] 3.77-5.28 WBC 8.2 {x10E3/uL} (Normal) Range: 3.4-10.8 3-Yic-783661:10 Metabolic Panel, Comprehensive Comments: PATIENT WAS FASTINGPERFORMED BY: [facility]CoSaint [facility] SussexBjadfs9580 [facility] [id number] (27606) ALT (SGPT) 11 [iU]/L (Normal) Range: 0-32 [...] Glucose, Serum 129 mg/dL (Abnormal) Range: 65-99 8-Jas-255689:10 Lipid Panel (57506) Comments: PATIENT WAS FASTINGPERFORMED BY: [facility]CoSaint [facility] at SussexDfozfh0584 [facility] [id number] LDL/HDL Ratio 1.4 {ratio_units} (Normal) Range: 0.0-3.2 [...] METABOLIC PANEL, Comments: PATIENT NOT FASTINGPERFORMED BY: [employer] Kpcjab9359 [facility] [id number] Information: [id number] COMPREHENSIVE (10814) ALT (SGPT) 15 [iU]/L (Normal) Range: 0-32 [...] 133 mg/dL (Abnormal) Range: 65-99 :14 TSH (78484) Comments: PATIENT NOT FASTINGPERFORMED BY: [facility]CoSaint [facility] SussexVddxyp8993 [facility] [id number] TSH 0.182 {uIU/mL} (Abnormal) Range: 0.450-4.500 :40 [...] CHOL 99 mg/dL (Normal) Comments: <200 mg/dL Afhqwujpu478-863 mg/dL Borderline>240 mg/dL High Risk :40 MIACRE [...] CHOL 148 mg/dL (Normal) Comments: <200 mg/dL Usmjdurxu421-990 mg/dL Borderline>240 mg/dL High Risk HDL 46 [...] - 250 nmol/L)Toxicity >100 ng/mL (>250 nmol/L) 11-Cxn-486835:27 HgA1C , Office (70233) HgA1C , Office 6.7 % (Normal) Range: 4.6 - 7.1 :17 METABOLIC PANEL, COMPREHENSIVE Comments: PATIENT WAS FASTINGPERFORMED BY: [facility] Hnhjeh8596 [facility] [id number] (35461) ALT (SGPT) 16 [iU]/L (Normal) Range: 0-32 [...] mg/dL (Abnormal) Range: 65-99 :17 LIPID PANEL (52263) Comments: PATIENT WAS FASTINGPERFORMED BY: [employer] Izwrof3948 [facility] [id number] LDL/HDL Ratio 2.0 {ratio_units} (Normal) Range: 0.0-3.2 [...] MANUAL DIFF Comments: PATIENT WAS FASTINGPERFORMED BY: [facility]6370 [facility] [id number] Information: [id number] (41342) Immature Grans (Abs) 0.0 {x10E3/uL} (Normal) Range: [...] B-12 (CYANOCOBALAMIN) Comments: PATIENT WAS FASTINGPERFORMED BY: [employer] Nmghtk0849 [address] [place] [place] [id number] ([address]) Vitamin B12 696 pg/mL (Normal) Range: 211-946 :17 Vitamin D Hydroxy (13164) Comments: PATIENT WAS FASTINGPERFORMED BY: [facility] Zhtphd3193 [address]er RoadDublin [place] [id number] Vitamin D, 25-Hydroxy 29.3 ng/mL (Abnormal) Range: 30.0-100.0 Comments: Vitamin D deficiency has been defined by the [place] [facility] and an Endocrine Society practice guideline as alevel of serum 25-OH vitamin D less than 20 ng/mL (1,2).The Endocrine Society went on to further define vitamin Dinsufficiency as a level between 21 and 29 ng/mL (2).1. IOM ([place] of Medicine). 2010. Dietary reference intakes for calcium and D. [place]: The National Academies Press.2. Rachel MF, Yael NC, Dunia HERRERA, et al. Evaluation, treatment, and prevention of vitamin D deficiency: an Endocrine Society clinical practice guideline. JCEM. 2010; 96(7):1911-30. :29 HgA1C , Office (98475) HgA1C , Office 7.0 % (Normal) Range: 4.6 - 7.1 :14 B12 794 pg/mL (Normal) Range: 211-911 Comments: Effective 2012:14 VITD 37.5 ng/mL (Normal) Comments: Vitamin D 25(OH) Status RangeDeficiency <20 ng/mL (50nmol/L)Insufficiency 20 - 30 ng/mL (50 - 75 nmol/L)Sufficiency 30 - 100 ng/mL (75 - 250 nm ol/L)Toxicity >100 ng/mL (250 nmol/L)Effective 201201-Dec-20121-Buf-285118:13 CHEST PA AND LATERAL Radiology Report See [...] Tate D.O.December 01, 2012 at 12:40:54 PM [phone] Signed DS/DS If you are the referring physician and would like to consult with theradiologist who provided this i nterpretation, please contact Eulalio Tate D.O. at [phone]. If this radiologist is unavailable, you will bedirected to another radiologist to assist. If you are a patient with a question regarding t his report, pleasecontactyour referring physician directly. Professional Interpretation Provided By: [employer], Phone , These documents contain legally protected [...] 12/01/12 1244 Sign by: Mack Peterson DO 04-Fdx-345339:20 Upper Respiratory Culture Comments: PATIENT NOT FASTINGPERFORMED BY: [facility]CoSaint [facility] at SussexLgfxcq1450 [address] [place] [id number] Information: SRC: THROAT Result 1 RRF (Normal) Comments: Routine respiratory alton Upper Respiratory Culture Final report (Normal) 29-Ycs-829429:06 Rapid Strep Test, Office (94993) Rapid Strep Test, Office Negative (Normal) 85-Lul-870004:32 BILAT SCRN DIGITAL & CAD Radiology Report [...] Wayne M.D.November 18, 2012 at 12:51:57 PM [phone] Signed GP/GP If you are the referring physician and would like to consult with theradiologist who provid ed this interpretation, please contact Lee Claudio at [phone]. If this radiologist is unavailable, youwill be directed to another radiologist to assist. If you are a patient with a ques tion regarding this report, pleasecontactyour referring physician directly. Professional Interpretation Provided By: [employer], Phone , These documents contain legally pr [...] 11/18/12 1254 Sign by: Teo Wayne MD 5-Bju-244205:24 URINE RANI CULTURE-IDENTIFICATN Comments: PATIENT NOT FASTINGPERFORMED BY: [facility] StoresCarlsbad Medical CenterFhnjgy6841 [facility] [id number] Information: [id number] (33258) Result 1 MUG (Normal) Comments: Mixed urogenital flora10,000-25,000 colony forming units per mL Urine Final report (Normal) Culture,Comprehensive 66-Wjn-194435:50 METABOLIC PANEL, Comments: PATIENT NOT FASTINGPERFORMED BY: [employer] Inmrci0833 [facility] [id number] Information: ADD [id number] AND DRAW FEE 99 9888 COMPREHENSIVE (00959) ALT (SGPT) 14 [iU]/L (Normal) Range: 0-32 [...] Glucose, Serum 109 mg/dL (Abnormal) Range: 65-99 0-Qlb-492666:42 HgA1C , Office (07779) HgA1C , Office 6.3 % (Normal) Range: 4.6 - 7.1 :04 Microscopic Examination Comments: PATIENT NOT FASTINGPERFORMED BY: [address] [place] [id number] Bacteria Few (Normal) Mucus Threads Present (Normal) Cast Type Hyaline casts (Normal) Casts Present {/lpf} (Abnormal) Epithelial Cells (non renal) 0-10 {/hpf} (Normal) Range: 0 - 10 RBC 0-3 {/hpf} (Normal) Range: 0 - 3 WBC 6-10 {/hpf} (Abnormal) Range: 0 - 5 :04 VITAMIN B-12 (CYANOCOBALAMIN) Comments: PATIENT NOT FASTINGPERFORMED BY: [employer] [employer] [place] [id number] (04802) Vitamin B12 1228 pg/mL (Abnormal) Range: 211-946 :04 Vitamin D Hydroxy (74427) Comments: PATIENT NOT FASTINGPERFORMED BY: [address] [place] [id number] Vitamin D, 25-Hydroxy 21.9 ng/mL (Abnormal) Range: 30.0-100.0 Comments: Vitamin D deficiency has been defined by the [place] of[place]icine and an Endocrine Society practice guideline as alevel of serum 25-OH vitamin D less than 20 ng/mL (1,2).The Endocrine Society went on to further define vitamin Dinsufficiency as a level between 21 and 29 ng/mL (2).1. IOM ([place] of Medicine). 2010. Dietary reference intakes for calcium and D. [place]: The National Academies Press.2. Rachel MF, Yael MARLEY, Dunia HERRERA, et al. Evaluation, treatment, and prevention of vitamin D deficiency: an Endocrine Society clinical practice guideline. JCEM. 2010; 96(7):1911-30. :04 URINALYSIS, W/ MICRO (56180) Comments: PATIENT NOT FASTINGPERFORMED BY: [employer]70 [facility] [id number] Microscopic Examination See below: (Normal) Nitrite, Urine Negative (Normal) Bilirubin Negative (Normal) Urobilinogen,Semi-Qn 0.2 mg/dL (Normal) Range: 0.0-1.9 Occult Blood Negative (Normal) Ketones Negative (Normal) Glucose Negative (Normal) Protein Negative (Normal) WBC Esterase 1+ (Abnormal) Appearance Clear (Normal) Urine-Color Yellow (Normal) pH 5.5 (Normal) Range: 5.0-7.5 Specific Jackson 1.024 (Normal) Range: 1.005-1.030 :04 CBC WITH MANUAL DIFF Comments: PATIENT NOT FASTINGPERFORMED BY: [employer] [facility] [employer] Ajguhr1226 [facility] [id number] Information: [id number] (45518) Immature Grans (Abs) 0.0 {x10E3/uL} (Normal) Range: [...] 3.77-5.28 WBC 7.2 {x10E3/uL} (Normal) Range: 4.0-10.5 58-Oif-23495:04 METABOLIC PANEL, COMPREHENSIVE Comments: PATIENT NOT FASTINGPERFORMED BY: [facility]CoSaint [facility] Hospital at SussexCofweb5605 [facility] [id number] (05314) ALT (SGPT) 13 [iU]/L (Normal) Range: 0-32 [...] mg/dL (Abnormal) Range: 65-99 :04 LIPID PANEL (58172) Comments: PATIENT NOT FASTINGPERFORMED BY: [employer] [address] [id number] LDL Cholesterol Calc 103 mg/dL (Abnormal) Range: [...] pg/mL (Normal) Range: 211-946 Comments: Performed at: [facility] [address] [id number] Director: Arnold Jefferson PhD, Phone: [phone] :[phone] CMP GAP 9 (Normal) Range: 5-15 [...] 250 nmol/L) Toxicity >100 ng/mL (250 nmol/L)Effective 201215-Aug-201208-Jrz-709493:20 Metabolic Panel, Basic Comments: PATIENT NOT FASTINGPERFORMED BY: [facility] Center6370 [facility] [id number] Information: [id number] (93664) Calcium, Serum 10.2 mg/dL (Normal) Range: 8.6-10.2 [...] Glucose, Serum 99 mg/dL (Normal) Range: 65-99 9-Nbs-420392:24 Microscopic Examination Comments: PATIENT NOT FASTINGPERFORMED BY: [facility] Center6370 [facility] [id number] Bacteria Few (Normal) Mucus Threads Present (Normal) Epithelial Cells (non renal) 0-10 {/hpf} (Normal) Range: 0 - 10 RBC 0-3 {/hpf} (Normal) Range: 0 - 3 WBC 6-10 {/hpf} (Abnormal) Range: 0 - 5 4-Pry-551826:24 Vitamin D Hydroxy (02416) Comments: PATIENT NOT FASTINGPERFORMED BY: [facility] Center6370 [facility] [id number] Vitamin D, 25-Hydroxy 21.7 ng/mL (Abnormal) Range: 30.0-100.0 Comments: Vitamin D deficiency has been defined by the [place] of[place]icine and an Endocrine Society practice guideline as alevel of serum 25-OH vitamin D less than 20 ng/mL (1,2).The Endocrine Society went on to further define vitamin Dinsufficiency as a level between 21 and 29 ng/mL (2).1. IOM ([place] of Medicine). 2010. Dietary reference intakes for calcium and D. [place]: The National Academies Press.2. Rachel MF, Yael MARLEY, Dunia HERRERA, et al. Evaluation, treatment, and prevention of vitamin D deficiency: an Endocrine Society clinical practice guideline. JCEM. 2010; 96(7):1911-30. 9-Zot-489147:24 VITAMIN B-12 (CYANOCOBALAMIN) Comments: PATIENT NOT FASTINGPERFORMED BY: [employer]70 [facility]Nov[facility] [id number] (64619) Vitamin B12 431 pg/mL (Normal) Range: 211-946 :24 URINALYSIS, W/ MICRO (49437) Comments: PATIENT NOT FASTINGPERFORMED BY: [employer]70 [facility]Nov[facility] [id number] Microscopic Examination MICRON (Normal) Comments: Microscopic follows if indicated. Microscopic Examination See below: (Normal) Nitrite, Urine Negative (Normal) Urobilinogen,Semi-Qn 0.2 mg/dL (Normal) Range: 0.0-1.9 Bilirubin Negative (Normal) Ketones Negative (Normal) Occult Blood Negative (Normal) Glucose Negative (Normal) Protein Negative (Normal) WBC Esterase Negative (Normal) Appearance Clear (Normal) pH 6.5 (Normal) Range: 5.0-7.5 Urine-Color Yellow (Normal) Specific Jackson 1.022 (Normal) Range: 1.005-1.030 :24 CBC WITH MANUAL DIFF Comments: PATIENT NOT FASTINGPERFORMED BY: [employer]6370 [facility] JockNov[facility] [id number] Information: [id number] (35302) Immature Grans (Abs) 0.0 {x10E3/uL} (Normal) Range: [...] 3.77-5.28 WBC 7.9 {x10E3/uL} (Normal) Range: 4.0-10.5 3-Hxh-790303:24 METABOLIC PANEL, COMPREHENSIVE Comments: PATIENT NOT FASTINGPERFORMED BY: LabCoSaint [facility] Hospital at SussexMejiqy2792 [facility] [id number] (49822) ALT (SGPT) 16 [iU]/L (Normal) Range: 0-32 [...] Glucose, Serum 107 mg/dL (Abnormal) Range: 65-99 5-Nlm-620732:24 TSH (81728) Comments: PATIENT NOT FASTINGPERFORMED BY: Micha[facility] StoresCarlsbad Medical CenterVxctcx0955 [facility] [id number] TSH 2.000 {uIU/mL} Range: 0.450-4.500 (Normal) CCP Antibodies IgG/IgA 1 {units} (Normal) Comments: PATIENT NOT FASTINGPERFORMED BY: Mich[facility] StoresAngela [place] 1860170 [facility] [id number] BY: [employer] [id number] :39 Range: 0-19 Comments: Negative <20 Weak positive 20 - 39 Moderate positive 40 - 59 Strong positive >59 1-Fwf-088069:39 Systemic Lupus Profile Comments: PATIENT NOT FASTINGPERFORMED BY: [facility] StoresAng[place] 1860170 [facility] [id number] BY: [employer] [id number] Information: [id number] (04975) Anti-DNA (DS) Ab Qn <1 {IU/mL} (Normal) Range: 0-9 Comments: Negative <5 Equivocal 5 - 9 Positive >9 Sjogren's Anti-SS-B 0.5 {AI} (Normal) Range: 0.0-0.9 Sjogren's Anti-SS-A 0.3 {AI} (Normal) Range: 0.0-0.9 Antichromatin Antibodies <0.2 {AI} (Normal) Range: 0.0-0.9 RA Latex Turbid. 8.5 {IU/mL} (Normal) Range: 0.0-13.9 [place] Antibodies <0.2 {AI} (Normal) Range: 0.0-0.9 NETWORK SECURITY ENGINEER Antibodies <0.2 {AI} (Normal) Range: 0.0-0.9 :27 HgA1C , Office (87406) HgA1C , Office 6.2 % (Normal) Range: 4.6 - 7.1 :27 Blood Glucose , Office (07808) Blood Glucose , Office 108 (Normal) :45 [...] D deficiency has been defined by the [place] ofMedicine and an Endocrine Society practice guideline as alevel of serum 25-OH vitamin D less than 20 ng/mL (1,2).The Endocrine Society went on to further define vitamin Dinsufficiency as a level between 21 and 29 ng/mL (2).1. IOM ([place] of Medicine). 2010. Dietary reference intakes for calcium and D. [place]: The National Academies Press.2. Rachel MF, Yael NC, Dunia HERRERA, et al. Evaluation, treatment, and prevention of vitamin D deficiency: an Endocrine Society clinical practice guideline. JCEM. 2010; 96(7): 1911-30.Performed at: [address] [id number] Director: Arnold Jefferson PhD, Phone: [phone] 59-Tmv-109413:59 Blood Glucose , Office (38419) Blood Glucose , Office 131 (Normal) :58 HgA1C , Office (69768) HgA1C , Office 6.8 % (Normal) Range: [...] mg/dL suggests DIABETES MELLITUS per A.D.A. criteria. 00-Bbk-786263:12 LIPID LDL 104 mg/dL (Normal) Range: 0-130 [...] D deficiency has been defined by the [place] ofMedicine and an Endocrine Society practice guideline as alevel of serum 25-OH vitamin D less than 20 ng/mL (1,2).The Endocrine Society went on to further define vitamin Dinsufficiency as a level between 21 and 29 ng/mL (2).1. IOM ([place] of Medicine). 2010. Dietary reference intakes for calcium and D. [place]: The National Academies Press.2. Rachel MF, Yael MARLEY, Dunia HERRERA, et al. Evaluation, treatment, and prevention of vitamin D deficiency: an Endocrine Society clinical practice guideline. JCEM. 2010; 96(7): 1911-30.Performed at: [address] [id number] Director: Tona Emmanuel MD, Phone: [phone] 85-Ejw-640978:15 HgA1C , Office (61112) HgA1C , Office 5.8 % (Normal) Range: 4.6 - 7.1 86-Hhv-806529:15 Blood Glucose , Office (83772) Blood Glucose , Office 113 (Normal) :30 [...] D deficiency has been defined by the [place] ofMedicine and an Endocrine Society practice guideline as alevel of serum 25-OH vitamin D less than 20 ng/mL (1,2).The Endocrine Society went on to further define vitamin Dinsufficiency as a level between 21 and 29 ng/mL (2).1. IOM ([place] of Medicine). 2010. Dietary reference intakes for calcium and D. [place]: The National Academies Press.2. Rachel MF, Yael NC, Dunia HERRERA, et al. Evaluation, treatment, and prevention of vitamin D deficiency: an Endocrine Society clinical practice guideline. JCEM. 2010; 96(7): 1911-30.Performed at: [address] [id number] Director: Tona Emmanuel MD, Phone: [phone] 04-Foy-432745:02 CTA NECK W/WO CONTRAST Radiology Report See [...] ologist regarding this report, please call our 50B6pslgmae line @ Dictated on 10/08/11 [address]ER,Loraribed on 10/09/11 0856 by ITS IMPORTSign by Juana Wayne MD on 10/09/11 0857 Sign by: Teo Wayne MD 40-Vpx-107919:00 BILAT SCRN DIGITAL & CAD Radiology Report [...] radiologist regarding this report, please call our 31K2hwzclcm line @ Dictated on 09/18/11 1040 by Ori clifton MD,Deweybed on 09/20/11 0901 by ITS IMPORTSign by Teo Wayne MD on 09/20/11 0902 Sign by: Hema STREETER,Teo 42-Dkw-74637:59 DEXA BONE DENSITY STUDY (HP) Radiology Report [...] regarding this re port, please call our 29M7kpfffjj line @ Dictated on 09/18/11 [address]ER,Davidranscribed on 09/19/11 1416 by ITS IMPORTSign by Teo Wayne MD on 09/19/11 141 Sign by: Teo Wayne MD 56-Dpx-147509:17 HgA1C , Office (23193) HgA1C , Office 5.9 % (Normal) Range: 4.6 - 7.1 83-Ref-290111:17 Blood Glucose , Office (68269) Blood Glucose , Office 77 (Normal) :44 [...] >240 mg/dL High Risk :44 VIT D,25 84893 22.3 ng/mL (Abnormal) Range: 30.0-100.0 Comments: Vitamin D deficiency has been defined by the [place] of[place]icine and an Endocrine Society practice guideline as alevel of serum 25-OH vitamin D less than 20 ng/mL (1,2).The Endocrine Society went on to further define vitamin Dinsufficiency as a level between 21 and 29 ng/mL (2).1. IOM ([place] of Medicine). 2011. Dietary reference intakes for calcium and D. [place]: The National Academies Press.2. Rachel MF, Yael MARLEY, Dunia HERRERA, et al. Evaluation, treatment, and prevention of vitamin D deficiency: an Endocrine Society clinical practice guideline. JCEM. 2010; 96(7): 1911-30.Performed at: - [facility] [address] [id number] Director: Tona Emmanuel MD, Phone: [phone] :[phone] HgA1C , Office (94065) HgA1C , Office 6.6 % (Normal) Range: 4.6 - 7.1 :34 Blood Glucose , Office (33420) Blood Glucose , Office 116 (Normal) :50 [...] Range: 4.4-11.0 :50 COMP METABOLIC Comments: appt 03404 GAP 10 (Normal) Range: 5-15 CO2 26.0 [...] {uIU/mL} (Normal) Range: 0.358-3.74 :50 VIT D,25 97779 41.3 ng/mL (Normal) Range: 32.0-100.0 Comments: Effective June 18, 2011 Vitamin D, 25-Hydroxy reference intervals will be changing to 30-100. .Recent studies consider the lower li lalo of 32.0 ng/mL to be athreshold for optimal health.Pepito ANNE. J Nutr. 2004;135(2):317-22.Performed at: [facility] [employer] [id number] Director: Tona Emmanuel MD, Phone: [phone] :[phone] VITAMIN B12 806 pg/mL (Normal) Range: 254-1320 Comments: There is a low frequency possibility that high titers ofintrinsic blocking antibodies may not be completely inactivated during the reaction pretreatment stepof this testing method. If test results are i n conflictwith the clinical diagnosis, patient should be testedfor the presence of intrinsic factor blocking antibodies. 2-Oqi-051649:09 Comp. Metabolic Panel (14) Comments: PATIENT WAS FASTINGPERFORMED BY: [facility] [id number] ALT (SGPT) 40 [iU]/L (Normal) Range: 0-40 [...] With LDL/HDL Comments: PATIENT WAS FASTINGPERFORMED BY: [facility] [id number] Ratio LDL Cholesterol Calc 74 mg/dL (Normal) [...] 0.192 {uIU/mL} Comments: PATIENT WAS FASTINGPERFORMED BY: [facility] [id number] 09 (Abnormal) Range: 0.450-4.500 : Vitamin B12 417 pg/mL (Normal) Comments: PATIENT WAS FASTINGPERFORMED BY: [facility] [id number] 09 Range: 211-946 70-Qey-963426:22 UNILAT LT DIAG DIGITAL & CAD Radiology [...] 02/23/11 151 Sign by: Teo Wayne MD 40-Vnc-16216:58 CBCD,SMEAR DIFF Comments: appt 10/24/10 RED CELL [...] {uIU/mL} (Abnormal) Range: 0.358-3.74 :58 VIT D,25 66469 22.0 ng/mL (Abnormal) Comments: appt 10/24/10 Range: 32.0-100.0 Comments: Recent studies consider the lower limit of 32.0 ng/mL to tammy threshold for optimal health.Pepito ANNE. J Nutr. 2004;135(2):317-22.Performed at: [facility] [place] [address]Lab Director: Tona Emmanuel MD, Phone: [phone] :58 VITAMIN B12 285 pg/mL (Normal) Range: [...] Thin Prep VialPATIENT NOT FASTINGPERFORMED BY: [facility] [address] [id number] Information: [id number] ([id number]) Note: PAPSMR (Normal) Comments: The Pap smear [...] for malignant neoplasm of the cervixConner Montes, Gem Setter (ASCP) 48-Bqt-052121:26 BREAST UNILATERAL Radiology Report See Note (Normal) [...] on 08/28/10 1453 Sign by: ANTHONY PALOMARES 57-Xrr-050509:58 UNILAT LT DIAG DIGITAL & CAD Radiology [...] Category 3: Probably Benign Finding - Initial Ddoyy-YusfximcRwazwk-ej Suggested. A letter regarding these results will be sent tothepatient by the facility within 30 days. Approximately 10% of breast cancers are not detected by mammography. Anormal mammogram should not delay biopsy of a clinically suspiciousabnormality. Dictated on 08/24/10 1206 by ANTHONY PALOMARESTranscribed on 08/24/10 135 by ITS IMPORTSign by ANTHONY PALOMARES on 08/24/10 135 Sign by: ANTHONY PALOMARES 14-Uhd-50079:43 BILAT SCRN DIGITAL & CAD Radiology Report [...] on 08/18/101451 Sign by: ANTHONY PALOMARES MD 5-Hug-916496:14 HgA1C , Office (41492) HgA1C , Office 6.5 % (Normal) Range: 4.6 - 7.1 2-Zye-404380:14 Blood Glucose , Office (59566) Blood Glucose , Office 176 (Normal) :30 [...] CREAT 161.2 mg/dL (Normal) : VIT D,25 69573 27.7 ng/mL Range: 32.0-100.0 30 (Abnormal) Comments: Recent studies consider the lower limit of 32.0 ng/mL to tammy threshold for optimal health.Pepito ANNE. J Nutr. 2004;135(2):317- 22.Performed at: - [facility] 2[address]Lab Director: Tona Emmanuel MD, Phone: [phone] : VITAMIN B12 449 pg/mL (Normal) Range: [...] {units} (Normal) Comments: PATIENT NOT FASTINGPERFORMED BY: [facility] Lgemmc5565 [facility] [id number] BY: [address] [id number] 0:44 Range: 0-19 Comments: Negative <20 Weak positive 20 - 39 Moderate positive 40 - 59 Strong positive >59 Comment: SPRCS (Normal) Comments: PATIENT NOT FASTINGPERFORMED BY: [facility] [employer] [facility] [id number] BY: [address] [id number] 0:44 Comments: Effective April 25, 2009 order code 450890 CCP IgGAntibodies has been replaced due to an updated reagentversion 3.1. For this reason [facility] has provided youwith a new order code 925583 CCP Antibodies IgG/IgA. 46-Bpb-724978:44 Vitamin D Hydroxy Comments: PATIENT NOT FASTINGPERFORMED BY: [facility] Mevgxz3326 [facility] [id number] BY: [address] [id number] (68314) Vitamin D, 25-Hydroxy 30.9 ng/mL (Abnormal) Range: 32.0-100.0 Comments: Recent studies consider the lower limit of 32.0 ng/mL to be athreshold for optimal health.Pepito ANNE. J Nutr. 2004;135(2):317-22. 83-Tov-333535:44 SED RATE ERYTHROCYTE Comments: PATIENT NOT FASTINGPERFORMED BY: RelatientRobert [place] 0768670 [facility] [id number] BY: [address] [id number] (02425) Sedimentation Rate-Westergren 4 mm/h (Normal) Range: 0-30 55-Yiv-718806:44 C-REACTIVE PROTEIN Comments: PATIENT NOT FASTINGPERFORMED BY: [place] [address]1070 [facility] [id number] BY: [address] [id number] (34306) C-Reactive Protein, Quant 2.5 mg/L (Normal) Range: 0.0-4.9 97-Onf-323454:44 TSH (66938) Comments: PATIENT NOT FASTINGPERFORMED BY: [address] [id number] BY: [address] [id number] TSH 2.050 {uIU/mL} (Normal) Range: 0.450-4.500 75-Zgy-431264:44 RHEUMATOID FACTOR-QUANT Comments: PATIENT NOT FASTINGPERFORMED BY: [place] [address]1070 [facility] [id number] BY: [address] [id number] (70589) RA Latex Turbid. 8.4 {IU/mL} (Normal) Range: 0.0-13.9 94-Tok-996170:44 MELI (ANTINUCLEAR ANTIBODY) Comments: PATIENT NOT FASTINGPERFORMED BY: [facility]6370 [facility] [id number] BY: [address] [id number] (51259) MELI Direct Negative (Normal) 88-Nlz-925044:44 CBC WITH MANUAL DIFF Comments: PATIENT NOT FASTINGPERFORMED BY: [place] [address]1070 [facility] [id number] BY: [address] [id number] Inf ormation: ADD [id number] AND DRAW FEE [id number] (45913) Immature Grans (Abs) 0.0 {x10E3/uL} (Normal) Range: [...] 3.80-5.10 WBC 6.8 {x10E3/uL} (Normal) Range: 4.0-10.5 49-Rbg-466144:44 METABOLIC PANEL, Comments: PATIENT NOT FASTINGPERFORMED BY: CB [facility] Aoeqgg8124 [facility] [id number] BY: BN [facility] [address] [id number] [facility] (49766) ALT (SGPT) 21 [iU]/L (Normal) Range: 0-40 [...] (Abnormal) Range: 65-99 :33 HgA1C , Office (48328) HgA1C , Office 6.8 % (Normal) Range: 4.6 - 7.1 :33 Blood Glucose , Office (59825) Blood Glucose , Office 135 (Normal) :22 [...] CHOL 157 mg/dL (Normal) Comments: <200 mg/dL Whzhzjiqt480-110 mg/dL Borderline>240 mg/dL High Risk :22 LIVER ALB 3.5 g/dL (Normal) Range: 3.4-5.0 ALK P 97 U/L (Normal) Range: 50-136 ALT 21 U/L (Normal) Range: 12-78 AST 16 U/L (Normal) Range: 15-37 D BILI 0.12 mg/dL (Normal) Range: 0.00-0.30 T BILI 0.40 mg/dL (Normal) Range: 0.00-1.00 T PROT 6.5 g/dL (Normal) Range: 6.4-8.2 :22 TSH 1.54 {uIU/mL} Range: 0.358-3.74 (Normal) :22 VIT D,25 49040 36.8 ng/mL (Normal) Range: 32.0-100.0 Comments: Recent studies consider the lower limit of 32.0 ng/mL to tammy threshold for optimal health.Pepito ANNE. J Nutr. 2004;135(2):317-22.Performed at: [facility] [address] 296Lab Director: Tona Emmanuel MD, Phone: [phone] :[phone] VITAMIN B12 264 pg/mL (Normal) Range: 254-1320 Comments: There is a low frequency possibility that high titers ofintrinsic blocking antibodies may not be completelyinactivated during the reaction pretreatment stepof this testing method. If test results are in conflictwith the clinical diagnosis, patient should be testedfor the presence of intrinsic factor blocking antibodies. : Amylase, Serum 92 U/L (Normal) Comments: PERFORMED BY: [facility] [id number] Range: 31-124 27-Dms-570837:34 CBC With Differential/Platelet Comments: PERFORMED BY: [facility]CoSaint [facility] SussexTkcrus8814 [facility] [id number] Baso (Absolute) 0.0 {x10E3/uL} (Normal) Range: 0.0-0.2 [...] 3.80-5.10 WBC 7.5 {x10E3/uL} (Normal) Range: 4.0-10.5 78-Nnl-335371:34 Comp. Metabolic Panel (14) Comments: PERFORMED BY: [facility]CoSaint [facility] SussexVmajdw6263 [facility] [id number] ALT (SGPT) 18 [iU]/L (Normal) Range: 0-40 [...] Serum 57 U/L (Normal) Comments: PERFORMED BY: [facility] Vddrys7540 [facility] [id number] 13:34 Range: 0-59 03-Feb-20109:00 GALLBLADDER Radiology Report See Note (Normal) Comments: Exam Number: [id number] CLINICAL:Epigastric pain and bloating. ABDOMINAL ULTRASOUND TECHNIQUE:Transabdominal [...] hydronephrosis,etiology indeterminate. Reported By: KATHRYN MUNOZ M.D. 4-Zhg-042266:19 CBC WITH MANUAL DIFF Comments: PATIENT NOT FASTINGPERFORMED BY: COR[facility] Sboqwe3232 [facility] [id number] Information: [id number] (40602) Baso (Absolute) 0.1 {x10E3/uL} (Normal) Range: 0.0-0.2 [...] 3.80-5.10 WBC 9.9 {x10E3/uL} (Normal) Range: 4.0-10.5 6-Nsm-164802:19 METABOLIC PANEL, COMPREHENSIVE Comments: PATIENT NOT FASTINGPERFORMED BY: [facility]CoSaint [facility] SussexGpziaf5204 [facility] [id number] (51675) ALT (SGPT) 19 [iU]/L (Normal) Range: 0-40 [...] Report See Note (Normal) Comments: Exam Number: [id number] CLINICAL:This is a 69-year-old female patient with [...] as discussed above. Reported By: TEO WAYNE 5-Ois-307900:12 HgA1C , Office (33485) HgA1C , Office 7.1 % (Normal) Range: 4.6 - 7.1 4-Dfw-500047:12 Blood Glucose , Office (96829) Blood Glucose , Office 129 (Normal) 29-Dec-20099:45 [...] CHOL 155 mg/dL (Normal) Comments: <200 mg/dL Jnqoomptk694-896 mg/dL Borderline>240 mg/dL High Risk :45 VIT D,25 48627 42.5 ng/mL (Normal) Range: 32.0-100.0 Comments: Recent studies consider the lower limit of 32.0 ng/mL to tammy threshold for optimal health.Pepito ANNE. J Nutr. 2004;135(2):317-22.Performed at: - [facility] [id number] Director: Tona Emmanuel MD :53 LIPID HDL [...] CHOL 128 mg/dL (Normal) Comments: <200 mg/dL Tbscdtncw844-387 mg/dL Borderline>240 mg/dL High Risk :53 MICROALB:CRE UR MALB:CREAT 19.1 {mg/g_CRE} (Normal) MICROALBUMIN,UR 29.1 mg/L (Normal) UR CREAT 152.0 mg/dL (Normal) :53 TSH 0.93 {uIU/mL} (Normal) Range: 0.358-3.74 :53 VIT D,25 72670 22.7 ng/mL (Abnormal) Range: 32.0-100.0 Comments: Recent studies consider the lower limit of 32.0 ng/mL to tammy threshold for optimal health.Pepito ANNE. J Nutr. 2004;135(2):317-22.Performed At: [facility] [place], [place] [id number] :53 VITAMIN B12 337 pg/mL (Normal) Range: 254-1320 :09 HgA1C , Office (05623) HgA1C , Office 7.1 % (Normal) Range: 4.6 - 7.1 :09 Blood Glucose , Office (31959) Blood Glucose , Office 108 (Normal) 7-Bka-182354:33 KNEE,4 OR MORE VIEWS (MT) Radiology Report See Note (Normal) Comments: Exam Number: [id number] CLINICAL:Pain X-RAY EXAMINATION RIGHT KNEE TECHNIQUE:Three view(s) [...] Report See Note (Normal) Comments: Exam Number: [id number] CLINICAL:Pain X-RAY EXAMINATION: RIGHT TIBIA AND FIBULA [...] (MT) Radiology See Note Comments: Exam Number: [id number] CLINICAL:Pain X-RAY EXAMINATION: RIGHT FEMUR TECHNIQUE:Two views [...] Visualized femur. Reported By: RAYMOND ARRIAGA M.D. 2-Lep-692054:43 UNILAT LT DIAG DIGITAL & CAD Radiology Report See Note (Normal) Comments: Exam Number: [id number] MAMMOGRAM, UNILATERAL LEFT DIAGNOSTIC DIGITAL AND CAD HISTORYAbnormal mammogram, left breast. TECHNIQUEFull field digital images were obtained in left true lateral, rolledcranio caudal, and spot mediolateral oblique and craniocaudalprojections. CAD images were reviewed. The current study is compared to the examinations of March 12, 2006,and June 21, 2009. FINDINGSThere is a kvbqlzrh-kk-gjmhme extent of fibroglandular parenchymapresent. There is no [...] wereal so examined with computer-aided detection software ([employer], [employer].). Reported By: ANTHONY PALOMARES M.D. 10-Lop-020370:04 BILAT SCRN DIGITAL & CAD Radiology Report See Note (Normal) Comments: Exam Number: [id number] MAMMOGRAM, BILATERAL SCREENING DIGITAL AND CAD HISTORYRoutine [...] werealso examined with computer- aided detection software ([employer] [facility].). Reported By: ANTHONY PALOMARES M.D. 02-Sds-240880:03 DEXA BONE DENSITY STUDY () Radiology Report See Note (Normal) Comments: Exam Number: [id number] BONE DENSITOMETRY HISTORYOsteopenia. TECHNIQUE Bone densitometry of the lumbar spine and both hips is now beingperformed. The best criteria for evaluation of osteoporosis is theT-value, which represents the comparison of the patient's bone mass flako expected peak bone mass. For most patients, the mean T-value of S8bmcoidf L4 is used to evaluate the lumbar spine. To evalua te the hip,the lower T-value of the femoral neck or total hip is used. FINDINGSIn this patient, the mean T-value of L1 through L4 is 0.3 which isnormal. Bone mineral density is measured at 18.3% greate r than df7535.Digital lateral view for evaluation of vertebral deformity [...] within normallimits. Reported By: ANTHONY PALOMARES M.D. 48-Pcy-554857:09 BRAIN/HEAD W/WO CONTRAST Radiology Report See Note (Normal) Comments: Exam Number: [id number] CLINICAL:69 year old female with altered mental [...] CREAT 123.4 mg/dL (Normal) 07-Jun-2009 VIT D,25 14214 19.7 ng/mL Range: 32.0-100.0 9:02 (Abnormal) Comments: Recent studies consider the lower limit of 32.0 ng/mL to tammy threshold for optimal health.Pepito ANNE. J Nutr. 2004;135(2):317- 22.Performed At: [facility] [place], [place] [id number] 07-Jun-2009 VITAMIN B12 328 pg/mL (Normal) Range: 254-1320 9:02 11-Feb-2009 Homocyst(e)ine, Plasma 9.8 umol/L (Normal) Comments: PERFORMED BY: [facility] [id number] 14:28 Range: 0.0-15.0 11-Feb-2009 Methylmalonic Acid, 336 nmol/L (Normal) Comments: PERFORMED BY: [facility] [id number] 14:28 Serum Range: 73-376 Comments: The reference range for methylmalonic acid has been set at +3sd abovethe mean for healthy blood bank donors. In the clinical assessment ofpatients with megaloblastic anemias a cutoff of +3sd provides gr eaterspecificity in the diagnosis of the vitamin deficiency states,despite the sacrifice of some sensitivity. 11-Feb-2009 TSH 2.700 {uIU/mL} Comments: PERFORMED BY: [facility] [address] [id number] 14:28 (Normal) Range: 0.450-4.500 11-Feb-2009 Vitamin B12 231 pg/mL (Normal) Comments: PERFORMED BY: [facility] [address] [id number] 14:28 Range: 211-911 7-Zni-508638:09 HAND,MIN 3 VIEWS (MT) Radiology Report See Note (Normal) Comments: Exam Number: [id number] RIGHT WRIST CLINICAL DATAFell and injured the [...] osteoarthritis right hand. Reported By: FERNANDO TUCKER 1-Fpx-431246:09 WRIST,MIN 3 VIEWS (MT) Radiology Report See Note (Normal) Comments: Exam Number: [id number] RIGHT WRIST CLINICAL DATAFell and injured the [...] PANEL, COMPREHENSIVE Comments: PATIENT WAS FASTINGPERFORMED BY: [facility]CoSaint [facility] at SussexLfuomw0437 [facility] [id number] 65079) A/G Ratio 1.9 (Normal) Range: 1.1-2.5 Albumin, [...] 141 mmol/L (Normal) Range: 135-145 :42 TSH (89617) Comments: PATIENT WAS FASTINGPERFORMED BY: [employer] Jilkxd2616 [facility] [id number] TSH 4.980 {uIU/mL} (Abnormal) Range: 0.450-4.500 :42 MICROALBUMIN: CREATININE RATIO Comments: PATIENT WAS FASTINGPERFORMED BY: [facility] StoresSaint [facility] Hospital at SussexInykja3136 [facility] [id number] (38917) AND (66938) Creatinine, Urine 130.9 mg/dL (Normal) Range: 15.0-278.0 Microalb/Creat Ratio 66.4 {ug/mg_creat} (Abnormal) Range: 0.0-30.0 Microalbumin, Urine 86.9 ug/mL (Abnormal) Range: 0.0-17.0 :42 LIPID PANEL (28335) Comments: PATIENT WAS FASTINGPERFORMED BY: [employer] Sjwhgt0086 [facility] [id number] Cholesterol, Total 148 mg/dL (Normal) Range: 100-199 HDL Cholesterol 42 mg/dL (Normal) Comments: According to ATP-III Guidelines, HDL-C >59 mg/dL is considered anegative risk factor for CHD. LDL Cholesterol Calc 78 mg/dL (Normal) Range: 0-99 LDL/HDL Ratio 1.9 {ratio_units} (Normal) Range: 0.0-3.2 Triglycerides 141 mg/dL (Normal) Range: 0-149 VLDL Cholesterol Priscilla 28 mg/dL (Normal) Range: 5-40 :42 CBC WITH MANUAL DIFF (82491) Comments: PATIENT WAS FASTINGClinical Information: ADD DRAW FEE [id number] ADD J 84545 PERFORMED BY: [facility] Rchukp2366 [facility] [id number] Baso (Absolute) 0.1 {x10E3/uL} (Normal) Range: 0.0-0.2 [...] B-12 (CYANOCOBALAMIN) Comments: PATIENT WAS FASTINGPERFORMED BY: [facility]CoSaint [facility] at SussexArgzub6734 [facility] [id number] (22277) Vitamin B12 232 pg/mL (Normal) Range: 211-911 3-Eyl-069409:06 Blood Glucose , Office (91449) Blood Glucose , Office 155 (Normal) :27 [...] (Normal) Range: 0.34-4.82 :27 HgA1C , Office (53878) Comments: done>Wf. HgA1C , Office 6.2 % (Normal) Range: 4.6 - 7.1 :27 Blood Glucose , Office (47004) Comments: done>Wf. Blood Glucose , Office 152 [...] for patient's is the eGFRmultiplied by 1.212. [facility] Laboratory uses the abbreviated Modification of [...] Disease W/O Kidney Disease>/= 90 Stage One Iiixkr51 - 89 Stage Two Suspect Decrease d [...] T PROT 7.3 g/dL (Normal) Range: 6.4-8.2 8-Utt-777690:55 LIPID CHOL 287 mg/dL (Abnormal) Comments: <200 [...] mg/dL VLDL 50 mg/dL (Abnormal) Range: 40 2-Cza-453352:55 MICROALB:CRE UR MALB:CREAT 28.3 {mg/g_CRE} (Normal) MICROALBUMIN,UR 41.7 mg/L (Normal) UR CREAT 147.6 mg/dL (Normal) :55 TSH 5.53 {uIU/mL} (Abnormal) Range: 0.34-4.82 :25 TSH 0.16 {uIU/mL} (Abnormal) Range: 0.34-4.82 :31 HgA1C , Office (54490) Comments: done HgA1C , Office 6.5 % (Normal) Range: 4.6 - 7.1 :31 Blood Glucose , Office (07994) Comments: done Blood Glucose , Office 128 (Normal) :01 TSH 5.15 {uIU/mL} (Abnormal) Range: 0.34-4.82 :12 HgA1C , Office (19357) Comments: done HgA1C , Office 6.2 % (Normal) Range: 4.6 - 7.1 :12 Blood Glucose , Office (78472) Comments: done Blood Glucose , Office 187 [...] Serum 117 ng/mL (Normal) Comments: PERFORMED BY: [facility]ALS[facility] [id number] Range: 10-291 :33 Iron and TIBC Comments: PERFORMED BY: [facility]ALSNov[facility] [id number] Iron Bind.Cap.(TIBC) 304 ug/dL (Normal) Range: 250-450 Iron Saturation 26 % (Normal) Range: 15-55 Iron, Serum 78 ug/dL (Normal) Range: 35-155 UIBC 226 ug/dL (Normal) Range: 150-375 : Vitamin B12 412 pg/mL (Normal) Comments: PERFORMED BY: [facility]ALSNov[facility] [id number] 33 Range: 211-911 :56 LIPID CHOL 222 [...] (Normal) Range: 6.4-8.2 :07 HgA1C , Office (60152) Comments: done HgA1C , Office 5.9 % (Normal) Range: 4.6 - 7.1 :07 Blood Glucose , Office (95104) Comments: done Blood Glucose , Office 132 [...] mg/dL (Abnormal) Range: 34-200 Comments: Performed At: [address] [id number] :08 IRON+TIBC IRON SATURATION 17.9 % (Normal) [...] mg/dL (Normal) Range: 34-200 Comments: Performed At: [address] [id number] :56 IRON+TIBC IRON SATURATION 17.1 % (Normal) [...] 1.49 INDETERMINANT > OR = 1.50 SUGGEST [place] :05 CPK TOTAL 149 U/L (Normal) Comments: Precautions*: NOT APPLICABLEINDICATE CK '1', '2', '3', OR 'R' FOR RANDOM: 2 Range: 215 :05 CPKMB 1.1 ng/mL (Normal) Comments: Precautions*: NOT APPLICABLEINDICATE CK '1', '2', '3', OR 'R' FOR RANDOM: 2 Range: 0.0-5.0 Comments: CK-MB and RI Interpretation MB Relative Index Non-AMI <or= 5 NA Indeterminate > 5 <or= 4 AMI > 5 > 4 7-Yxr-401863:05 TROPONIN-I < 0.04 ng/mL (Normal) Comments: Precautions*: NOT APPLICABLEINDICATE CK '1', '2', '3', OR 'R' FOR RANDOM: 2 Comments: TROPONIN-I EXPECTED VALUES < 0.50 NEGATIVE 0.50 - 1.49 INDETERMINANT > OR = 1.50 SUGGEST [place] :15 PRO TIME Comments: Precautions*: NOT APPLICABLE INR 1.0 (Normal) PROTIME 12.6 s (Normal) Range: 11.7-13.3 :15 TROPONIN-I < 0.04 ng/mL (Normal) Comments: Precautions*: NOT APPLICABLE Comments: TROPONIN-I EXPECTED VALUES < 0.50 NEGATIVE 0.50 - 1.49 INDETERMINANT > OR = 1.50 SUGGEST [place] :00 BMP Comments: COMMENTS: FEARONPrecautions*: NOT APPLICABLEINDICATE [...] 1.49 INDETERMINANT > OR = 1.50 SUGGEST [place] :48 HgA1C , Office (25605) HgA1C , Office 6.4 % (Normal) Range: 4.6 - 7.1 :48 Blood Glucose , Office (73164) Blood Glucose , Office 113 (Normal) Plan [...] Indication: Double vision Double vision : Reviewed Transactional Attorney Letter Indication: Double vision Fatty liver : [...] BMI 36.0-36.9,adult Right hip pain : Reviewed Transactional Attorney Letter Indication: Right hip pain Right hip [...] (monoclonal gammopathy of unknown significance) : Reviewed Transactional Attorney Letter- stable and discharged from onc Indication: [...] Fall down steps, initial encounter : Reviewed Transactional Attorney Letter Indication: Fall down steps, initial encounter [...] infarction, unspecified Cerebral infarction, unspecified : Reviewed Transactional Attorney Letter Indication: Cerebral infarction, unspecified Upper respiratory [...] Planned Observations CBC, PLATELETS & AUT DIFF (07054)Indication: Other vitamin B12 deficiency anemia On: :17 Request TSH (80725)Indication: Abnormal TSH On: :38 Request T4, FREE (THYROXINE) (40190)Indication: Abnormal TSH On: :38 Request T3, FREE (TRIDOTHYRONINE) (43786)Indication: Abnormal TSH On: :38 Request ANTI-LIVER/KIDNEY MICROSOMAL ANTIBODY (46009)Indication: Elevated liver enzymes On: 68-Ovv-467170:34 Request TSH (65837)Indication: Abnormal TSH On: :31 Request T4, FREE (THYROXINE) (73780)Indication: Abnormal TSH On: :31 Request T3, FREE (TRIDOTHYRONINE) (58880)Indication: Abnormal TSH On: 45-Inj-067979:31 Request BETA-2 MICROGLOBULIN (49781)Indication: Abnormal blood chemistry On: 54-Tuj-252163:08 Request Urinalysis, Office (35173)Indication: Urinary frequency On: 07-Icf-999727:38 Request CBC WITH MANUAL DIFF (99616)Indication: Therapeutic drug monitoring On: :57 Request Metabolic Panel, Basic (74408)Indication: Therapeutic drug monitoring On: :57 Request Methymalonic Acid, Serum (27468)Indication: Vitamin B 12 deficiency On: 21-Gwe-745348:51 Request CALCIFIDIOL (95863) VIT D 25Indication: Vitamin D deficiency, unspecified On: 31-Efg-792548:45 Request LIPID PANEL (40161)Indication: Other and unspecified hyperlipidemia On: 92-Vfa-053515:45 Request CALCIFIDIOL (34026) VIT D 25Indication: Uncontrolled type II diabetes mellitus On: :46 Request TSH (90426)Indication: Uncontrolled type II diabetes mellitus On: :46 Request URINALYSIS, W/ MICRO (23114)Indication: Uncontrolled type II diabetes mellitus On: :46 Request MICROALBUMIN: CREATININE RATIO (20802) AND (82751)Indication: Uncontrolled type II diabetes mellitus On: :46 Request METABOLIC PANEL, COMPREHENSIVE (38360)Indication: Uncontrolled type II diabetes mellitus On: :46 Request LIPID PANEL (94710)Indication: Uncontrolled type II diabetes mellitus On: :45 Request CBC W/AUTO DIFF WBC (72877)Indication: Uncontrolled type II diabetes mellitus On: :45 Request Rapid Flu (14517 x 2)Indication: Flu-like symptoms On: 84-Fqv-093691:12 Request VITAMIN B-12 (CYANOCOBALAMIN) (70764)Indication: Vitamin B 12 deficiency On: 18-Ryr-995749:45 Request FECAL OCCULT- Tubes sent home (86738)Indication: Encounter for screening for malignant neoplasm of colon (Renamed from Special screening for malignant neoplasms, colon) On: 28-Rlz-704742:35 Request THYROXINE FREE (36766)Indication: Tachycardia On: 2-Bdl-738046:04 Request FREE TRIDOTHYRONINE (T3) (23809)Indication: Tachycardia On: 1-Nim-198128:04 Request TSH (THYROID STIMULATING HORMONE) (15878)Indication: Tachycardia On: 9-Ngb-676130:04 Request serum immunofixation (72358)Indication: MGUS (monoclonal gammopathy of unknown significance) On: 20-Jfi-764136:14 Request urine immunofixation (91765)Indication: MGUS (monoclonal gammopathy of unknown significance) On: 98-Uaq-082412:14 Request serum free light chains (87466)Indication: MGUS (monoclonal gammopathy of unknown significance) On: 72-Iwr-063235:14 Request CBC W/AUTO DIFF WBC ([id number])Indication: Diabetes mellitus type 2, controlled On: 95-Sed-524521:13 Request MICROALBUMIN: CREATININE RATIO ([id number]) AND ([id number])Indication: Diabetes mellitus type 2, controlled On: 14-Rvz-175608:13 Request METABOLIC PANEL, COMPREHENSIVE (38207)Indication: Diabetes mellitus type 2, controlled On: 02-Let-557776:13 Request LIPID PANEL (09884)Indication: Mixed hyperlipidemia On: 90-Vre-730416:13 Request VITAMIN B-12 (CYANOCOBALAMIN) ([id number])Indication: Other vitamin B12 deficiency anemia On: :12 Request CBC (AUTO) ([id number])Indication: Other vitamin B12 deficiency anemia On: 74-Nhh-632733:12 Request Vitamin D Hydroxy (33885)Indication: Vitamin D deficiency, unspecified On: 26-Uzq-001256:12 Request LIPID PANEL (66611)Indication: Mixed hyperlipidemia On: 8-Lpy-483977:42 Request METABOLIC PANEL, COMPREHENSIVE (62475)Indication: Benign essential hypertension (Renamed from Benign essential HTN) On: 0-Hgv-117115:41 Request MICROALBUMIN: CREATININE RATIO ([id number]) AND ([id number])Indication: Benign essential hypertension (Renamed from Benign essential HTN) On: :41 Request SPEP ([id number])Indication: Anemia, unspecified On: 34-Vvo-762848:17 Request UPEP (48061)Indication: Anemia, unspecified On: 89-Jta-442637:17 Request CBC W/AUTO DIFF WBC ([id number])Indication: Iron (Fe) deficiency anemia On: 1-Uwk-941985:38 Request TSH (03132)Indication: Acquired hypothyroidism On: 7-Qne-629482:38 Request TSH ([id number])Indication: Acquired hypothyroidism On: 37-Lhc-519201:34 Request SPEP ([id number])Indication: Iron (Fe) deficiency anemia On: 45-Mke-209355:34 Request UPEP (72087)Indication: Iron (Fe) deficiency anemia On: 06-Pcb-198165:34 Request IRON BINDING CAPACITY (TIBC) ([id number])Indication: Iron (Fe) deficiency anemia On: 23-Vtp-891419:34 Request FERRITIN ([id number])Indication: Iron (Fe) deficiency anemia On: 41-Ylq-606761:34 Request IRON (00203)Indication: Iron (Fe) deficiency anemia On: 15-Cbl-347088:34 Request CBC, PLATELETS & AUT DIFF (33772)Indication: Other vitamin B12 deficiency anemia On: :34 Request VITAMIN B-12 (CYANOCOBALAMIN) (72987)Indication: Other vitamin B12 deficiency anemia On: 96-Qub-265301:33 Request Hemoglobin Glyclated (HGB A1C) (93914)Indication: Diabetes mellitus type 2, controlled On: 76-Jwp-027503:33 Request CBC, PLATELETS & AUT DIFF (10087)Indication: Other vitamin B12 deficiency anemia On: :31 Request VITAMIN B-12 (CYANOCOBALAMIN) (63987)Indication: Other vitamin B12 deficiency anemia On: :30 Request METABOLIC PANEL, COMPREHENSIVE (76651)Indication: Benign essential hypertension (Renamed from Benign essential HTN) On: :30 Request LIPID PANEL (30141)Indication: Other and unspecified hyperlipidemia On: :30 Request Vitamin D Hydroxy (85975)Indication: Vitamin D deficiency, unspecified On: : Request RPBBN-RYNFRWORBUB-SBNSH ([id number])Indication: Fatty liver On: : Request CWZQI-UOBNIGCKIAT-STQOT ([id number])Indication: Fatty liver On: 19-Vlo-573253:24 Request LIPID PANEL (98183)Indication: Mixed hyperlipidemia On: :23 Request TSH ([id number])Indication: Acquired hypothyroidism On: 40-Les-132148:23 Request MICROALBUMIN: CREATININE RATIO (43624) AND ([id number])Indication: Diabetes mellitus type 2, controlled On: 18-Exg-619664:23 Request METABOLIC PANEL, COMPREHENSIVE (21502)Indication: Diabetes mellitus type 2, controlled On: 10-Bba-038658:23 Request Vitamin D Hydroxy (95773)Indication: Vitamin D deficiency, unspecified On: 49-Nkp-163022:23 Request CBC, PLATELETS & AUT DIFF (61852)Indication: Other vitamin B12 deficiency anemia On: 91-Dfh-324214:20 Request VITAMIN B-12 (CYANOCOBALAMIN) (37365)Indication: Other vitamin B12 deficiency anemia On: 65-Mub-977590:20 Request Vitamin D Hydroxy (29007)Indication: Vitamin D deficiency, unspecified On: 68-Twn-743184:38 Request VITAMIN B-12 (CYANOCOBALAMIN) ([id number])Indication: Other vitamin B12 deficiency anemia On: :38 Request CBC W/AUTO DIFF WBC ([id number])Indication: Other vitamin B12 deficiency anemia On: 28-Gcd-991171:37 Request TSH (89342)Indication: Acquired hypothyroidism On: 79-Rpw-413166:37 Request LIPID PANEL (93365)Indication: Mixed hyperlipidemia On: :37 Request YQUVX-LTLOZKEGYGI-OUGDW (11074)Indication: Fatty liver On: :08 Request PTT (Activated Partial Thromboplastin Time) (41904)Indication: Fatty liver On: : Request PT (Prothrobim Time) (83092)Indication: Fatty liver On: :08 Request Vitamin D Hydroxy (42237)Indication: Vitamin D deficiency, unspecified On: 82-Hqu-075716: Request VITAMIN B-12 (CYANOCOBALAMIN) (50375)Indication: Other vitamin B12 deficiency anemia On: : Request CBC W/AUTO DIFF WBC ([id number])Indication: Diabetes mellitus type 2, controlled On: : Request METABOLIC PANEL, COMPREHENSIVE (04155)Indication: Diabetes mellitus type 2, controlled On: 79-Age-298246: Request LIPID PANEL (04716)Indication: Mixed hyperlipidemia On: : Request LIPID PANEL (93491)Indication: HYPERTENSION, NOS On: 0-Zca-149227:40 Request CBC WITH MANUAL DIFF ([id number])Indication: HYPERTENSION, NOS On: 3-Gpf-095946:40 Request METABOLIC PANEL, COMPREHENSIVE (31140)Indication: HYPERTENSION, NOS On: :40 Request FECAL OCCULT- Tubes sent home (63723)Indication: Anemia, unspecified On: 08-Uzj-306897:38 Request IRON (33629)Indication: Anemia, unspecified On: :38 Request CBC WITH MANUAL DIFF ([id number])Indication: HYPERTENSION, NOS On: 1-Bzk-234142:29 Request METABOLIC PANEL, COMPREHENSIVE (31991)Indication: Uncontrolled type II diabetes mellitus On: 4-Vyl-040379:28 Request TSH (THYROID STIMULATING HORMONE) (29180)Indication: Acquired hypothyroidism On: 38-Vqh-723185:08 Request HgA1C , Office (82234)Indication: Diabetes mellitus type 2, controlled On: 70-Zen-258090:55 Request VITAMIN B-12 (CYANOCOBALAMIN) (69631)Indication: Other vitamin B12 deficiency anemia On: 0-Sqx-861127:17 Request LIPID PANEL (34572)Indication: Other and unspecified hyperlipidemia On: :17 Request MICROALBUMIN: CREATININE RATIO (11082) AND (48321)Indication: Uncontrolled type II diabetes mellitus On: : Request METABOLIC PANEL, COMPREHENSIVE (64673)Indication: Uncontrolled type II diabetes mellitus On: : Request HgA1C , Office (78590)Indication: Diabetes mellitus type 2, controlled On: :25 Request LIPID PANEL (83848)Indication: Other and unspecified hyperlipidemia On: : Request METABOLIC PANEL, COMPREHENSIVE (29825)Indication: Diabetes mellitus type 2, controlled On: : Request MICROALBUMIN: CREATININE RATIO (88597) AND (58439)Indication: Diabetes mellitus type 2, controlled On: : Request VITAMIN B-12 (CYANOCOBALAMIN) (24460)Indication: Other vitamin B12 deficiency anemia On: : Request CBC, PLATELETS & AUT DIFF (64096)Indication: Other vitamin B12 deficiency anemia On: :11 Request Vitamin D Hydroxy (12541)Indication: Vitamin D deficiency, unspecified On: 97-Tms-655902:10 Request Blood Glucose , Office (70164)Indication: Diabetes mellitus type 2, controlled On: :29 Request LIPID PANEL (00066)Indication: Other and unspecified hyperlipidemia On: :26 Request Vitamin D Hydroxy (05053)Indication: Vitamin D deficiency, unspecified On: : Request VITAMIN B-12 (CYANOCOBALAMIN) (84378)Indication: Other vitamin B12 deficiency anemia On: : Request METABOLIC PANEL, COMPREHENSIVE (82255)Indication: Benign essential hypertension (Renamed from Benign essential HTN) On: : Request MICROALBUMIN: CREATININE RATIO (77696) AND (66014)Indication: Uncontrolled type II diabetes mellitus On: : Request Sputum Culture (19293)Indication: Chronic cough On: 2-Zqw-599046:58 Request RANI CULTURE-OTHER (05892)Indication: Sore throat On: 05-Fui-990497:06 Request Urinalysis, Office (76574)Indication: Abnormal urine On: :14 Request RANI CULTURE-OTHER (10144)Indication: Abnormal urine On: :14 Request CCP ANTIBODY (50490)Indication: History of poliomyelitis (Renamed from H/O acute poliomyelitis) On: : Request ANTI-Sm (ANTI [place] ANTIBODY) (73541) test code 952144Ingaffncjs: History of poliomyelitis (Renamed from H/O acute poliomyelitis) On: : Request RHEUMATOID FACTOR-QUANT (22302) test code 269750Izmewbtgcd: History of poliomyelitis (Renamed from H/O acute poliomyelitis) On: : Request Vitamin D Hydroxy (93866)Indication: Vitamin D deficiency, unspecified On: 61-Eom-874847:15 Request LIPID PANEL (52928)Indication: Other and unspecified hyperlipidemia On: :15 Request TSH (05512)Indication: Acquired hypothyroidism On: 18-Idi-841999:15 Request METABOLIC PANEL, COMPREHENSIVE (82319)Indication: Diabetes mellitus type 2, controlled On: 28-Isc-811538:14 Request VITAMIN B-12 (CYANOCOBALAMIN) (66492)Indication: Other vitamin B12 deficiency anemia On: 23-Ffn-521938:08 Request MICROALBUMIN: CREATININE RATIO (48827) AND (68490)Indication: Uncontrolled type II diabetes mellitus On: 96-Voi-101030:30 Request METABOLIC PANEL, COMPREHENSIVE (48035)Indication: Uncontrolled type II diabetes mellitus On: 67-Ytr-247344:30 Request TSH ([id number])Indication: Acquired hypothyroidism On: 62-Qpi-568991:30 Request Vitamin D Hydroxy (11775)Indication: Vitamin D deficiency, unspecified On: 61-Kuo-494464:30 Request LIPID PANEL (71818)Indication: Other and unspecified hyperlipidemia On: 50-Eog-069493:29 Request LIPID PANEL (81764)Indication: Other and unspecified hyperlipidemia On: 39-Txo-777997:51 Request TSH (68812)Indication: Acquired hypothyroidism On: 12-Pas-498226:50 Request Vitamin D Hydroxy (15699)Indication: Vitamin D deficiency, unspecified On: 34-Jal-102544:50 Request CBC WITH MANUAL DIFF (10974)Indication: Diabetes mellitus type 2, controlled On: 06-Xce-627204:50 Request METABOLIC PANEL, COMPREHENSIVE (15794)Indication: Diabetes mellitus type 2, controlled On: 65-Zls-324237:50 Request Vitamin D Hydroxy (17229)Indication: Vitamin D deficiency, unspecified On: :44 Request VITAMIN B-12 (CYANOCOBALAMIN) (93424)Indication: Other vitamin B12 deficiency anemia On: :44 Request CBC WITH MANUAL DIFF ([id number])Indication: Anemia, unspecified On: :43 Request METABOLIC PANEL, COMPREHENSIVE (56177)Indication: Diabetes mellitus type 2, controlled On: :43 Request MICROALBUMIN: CREATININE RATIO (88576) AND (70362)Indication: Diabetes mellitus type 2, controlled On: :43 Request LIPID PANEL (04885)Indication: Other and unspecified hyperlipidemia On: :43 Request TSH (92036)Indication: Acquired hypothyroidism On: :43 Request Vitamin D Hydroxy (52423)Indication: Vitamin D deficiency, unspecified On: :03 Request LIPID PANEL (46330)Indication: Other and unspecified hyperlipidemia On: :03 Request CBC WITH MANUAL DIFF (72877)Indication: Diabetes mellitus type 2, controlled On: :02 Request METABOLIC PANEL, COMPREHENSIVE (99152)Indication: Diabetes mellitus type 2, controlled On: 0-Mhi-792146:02 Request VITAMIN B-12 (CYANOCOBALAMIN) (02330)Indication: Other vitamin B12 deficiency anemia On: 4-Faa-976786:36 Request Comments: Lot #[id number]/13Site-left deltoidDose-1 mlgiven by: Dani Rivera LPN LIPID PANEL (56528)Indication: Other and unspecified hyperlipidemia On: :28 Request METABOLIC PANEL, COMPREHENSIVE (40378)Indication: Uncontrolled type II diabetes mellitus On: :28 Request TSH (41311)Indication: Acquired hypothyroidism On: :28 Request Vitamin D Hydroxy (62171)Indication: Vitamin D deficiency, unspecified On: :22 Request CBC WITH MANUAL DIFF (46597)Indication: Anemia, unspecified On: :22 Request CBC WITH MANUAL DIFF (48556)Indication: Other vitamin B12 deficiency anemia On: 1-Utt-308815:20 Request Blood Glucose , Office (37904)Indication: Uncontrolled type II diabetes mellitus On: :15 Request Comments: 149 HgA1C , Office (91761)Indication: Uncontrolled type II diabetes mellitus On: :15 Request METABOLIC PANEL, COMPREHENSIVE (58549)Indication: Other and unspecified hyperlipidemia On: :22 Request LIPID PANEL (26098)Indication: Other and unspecified hyperlipidemia On: :22 Request TSH (04283)Indication: Acquired hypothyroidism On: :22 Request HEMOGLOBIN GLYCLATED (HGB A1C) (85868)Indication: Abnormal glucose tolerance test On: 27-Vod-515765:20 Request VITAMIN B-12 (CYANOCOBALAMIN) (35901)Indication: Other vitamin B12 deficiency anemia On: 24-Cnv-535357:17 Request Vitamin D Hydroxy (24846)Indication: Vitamin D deficiency, unspecified On: :21 Request VITAMIN B-12 (CYANOCOBALAMIN) (38941)Indication: Other vitamin B12 deficiency anemia On: 1-Sgq-208268:20 Request LIPID PANEL (86959)Indication: Abnormal glucose tolerance test On: :20 Request CBC WITH MANUAL DIFF (45098)Indication: Abnormal glucose tolerance test On: 2-Roo-773530:20 Request METABOLIC PANEL, COMPREHENSIVE (14168)Indication: Abnormal glucose tolerance test On: :20 Request METABOLIC PANEL, COMPREHENSIVE (01887)Indication: Abnormal glucose tolerance test On: :59 Request CBC WITH MANUAL DIFF (99895)Indication: Abnormal glucose tolerance test On: 6-Vps-901013:59 Request Vitamin D Hydroxy (82822)Indication: Vitamin D deficiency, unspecified On: 1-Zas-359318:59 Request VITAMIN B-12 (CYANOCOBALAMIN) (53931)Indication: Other vitamin B12 deficiency anemia On: 6-Abg-199479:59 Request TSH (21646)Indication: Acquired hypothyroidism On: 9-Hep-069806:58 Request LIPID PANEL (21476)Indication: Other and unspecified hyperlipidemia On: 6-Ese-525407:58 Request CCP ANTIBODY (91385)Indication: Pain in unspecified joint On: 02-Sla-523956:22 Request VITAMIN B-12 (CYANOCOBALAMIN) (31138)Indication: Other vitamin B12 deficiency anemia On: 9-Iza-645288:10 Request Vitamin D Hydroxy (25887)Indication: Vitamin D deficiency, unspecified On: 1-Qkv-860632:10 Request MICROALBUMIN: CREATININE RATIO (09951) AND (15962)Indication: Uncontrolled type II diabetes mellitus On: :10 Request CBC WITH MANUAL DIFF (43735)Indication: Uncontrolled type II diabetes mellitus On: 4-Tid-290604:10 Request METABOLIC PANEL, COMPREHENSIVE (70835)Indication: Benign essential hypertension (Renamed from Benign essential HTN) On: 7-Wes-712140:09 Request LIPID PANEL (61263)Indication: Other and unspecified hyperlipidemia On: 4-Dfc-419269:09 Request TSH (07125)Indication: Acquired hypothyroidism On: 1-Sqe-251450:39 Request VITAMIN B-12 (CYANOCOBALAMIN) (09311)Indication: Other vitamin B12 deficiency anemia On: 3-Ptl-798121:37 Request HEPATIC FUNCTION PANEL (61007)Indication: Other and unspecified hyperlipidemia On: 5-Cbt-740900:36 Request LIPID PANEL (66500)Indication: Other and unspecified hyperlipidemia On: 8-Nge-722901:36 Request Vitamin D Hydroxy (10088)Indication: Vitamin D deficiency, unspecified On: 3-Izd-565173:36 Request METABOLIC PANEL, COMPREHENSIVE (71283)Indication: Benign essential hypertension (Renamed from Benign essential HTN) On: 7-Oxm-284708:35 Request LIPID PANEL (55482)Indication: Other and unspecified hyperlipidemia On: 8-Fmw-862739:35 Request Vitamin D Hydroxy (30340)Indication: Vitamin D deficiency, unspecified On: 2-Bah-256846:30 Request Vitamin D Hydroxy (77032)Indication: Vitamin D deficiency, unspecified On: 18-Mes-558787:10 Request MICROALBUMIN: CREATININE RATIO (09326) AND (32946)Indication: Uncontrolled type II diabetes mellitus On: 14-Vur-832347:07 Request LIPID PANEL (53762)Indication: Other and unspecified hyperlipidemia On: :07 Request TSH (06093)Indication: Acquired hypothyroidism On: :07 Request VITAMIN B-12 (CYANOCOBALAMIN) (24622)Indication: Other vitamin B12 deficiency anemia On: 46-Ycf-818066:42 Request Vitamin D Hydroxy (82216)Indication: Vitamin D deficiency, unspecified On: :50 Request IRON BINDING CAPACITY (TIBC) (52127)Indication: Iron (Fe) deficiency anemia On: :50 Request LDH (LD) (LACTATE DEHYDROGENASE) (10893)Indication: Iron (Fe) deficiency anemia On: :50 Request FERRITIN (52764)Indication: Iron (Fe) deficiency anemia On: :50 Request IRON (18813)Indication: Iron (Fe) deficiency anemia On: :50 Request CBC WITH MANUAL DIFF ([id number])Indication: Iron (Fe) deficiency anemia On: :50 Request HEPATIC FUNCTION PANEL (65767)Indication: Other and unspecified hyperlipidemia On: :44 Request LIPID PANEL (34577)Indication: Other and unspecified hyperlipidemia On: :44 Request CBC WITH MANUAL DIFF (40631)Indication: Other vitamin B12 deficiency anemia On: 1-Mad-185668:54 Request MICROALBUMIN: CREATININE RATIO (71840) AND (41949)Indication: Glucose intolerance (no malabsorption) On: 2-Rek-400148:54 Request METABOLIC PANEL, COMPREHENSIVE (60329)Indication: HYPERTENSION, NOS On: :54 Request LIPID PANEL (66187)Indication: Other and unspecified hyperlipidemia On: :53 Request VITAMIN B-12 (CYANOCOBALAMIN) (42822)Indication: Other vitamin B12 deficiency anemia On: :53 Request IRON (67118)Indication: Iron (Fe) deficiency anemia On: :53 Request Vitamin D Hydroxy (80663)Indication: Osteopenia On: 4-Qjk-531415:49 Request Methylmalonic acid, serum 12497Hbfxkwscqo: Other vitamin B12 deficiency anemia On: :03 Request VITAMIN B-12 (CYANOCOBALAMIN) (61806)Indication: Other vitamin B12 deficiency anemia On: 26-Bne-829245:03 Request TSH (49238)Indication: Acquired hypothyroidism On: :03 Request HgA1C , Office (09678)Indication: Abnormal glucose tolerance test On: 1-Vti-918891:06 Request TSH (16528)Indication: Acquired hypothyroidism On: :35 Request LIPID PANEL (63817)Indication: Other and unspecified hyperlipidemia On: :35 Request METABOLIC PANEL, COMPREHENSIVE (41158)Indication: SOB (shortness of breath) on exertion On: :34 Request CBC WITH MANUAL DIFF (20110)Indication: SOB (shortness of breath) on exertion On: :34 Request TSH (82975)Indication: Acquired hypothyroidism On: 6-Tii-639516:46 Request Comments: do in 6 weeks TSH (18907)Indication: Acquired hypothyroidism On: 83-Hyh-074869:15 Request Comments: DO IN 6 WEEKS WITH MEDICATION CHANGE TSH (97139)Indication: Other malaise and fatigue On: 20-Gtz-79213:49 Request Iron Binding Capacity (TIBC) (73680)Indication: Iron (Fe) deficiency anemia On: 26-Okv-619554:43 Request Ferritin (89383)Indication: Iron (Fe) deficiency anemia On: 01-Veb-337334:43 Request Iron (38559)Indication: Iron (Fe) deficiency anemia On: 40-Ghb-423410:43 Request HEPATIC FUNCTION PANEL (88189)Indication: Mixed hyperlipidemia On: 97-Pdc-574592:42 Request LIPID PANEL (18189)Indication: Mixed hyperlipidemia On: 60-Yfz-353009:42 Request Comments: do in 3 months HEPATIC FUNCTION PANEL (03747)Indication: Mixed hyperlipidemia On: 5-Luc-023855:11 Request LIPID PANEL (80778)Indication: Mixed hyperlipidemia On: 0-Xhu-930807:11 Request Comments: do in 3 mo TSH (29672)Indication: Acquired hypothyroidism On: Request VITAMIN B-12 (CYANOCOBALAMIN) (12079)Indication: Anemia, unspecified On: Request LDH (LD) (LACTATE DEHYDROGENASE) (85960)Indication: Anemia, unspecified On: Request RETICULOCYTE COUNT MANUL (63198)Indication: Anemia, unspecified On: Request IRON BINDING CAPACITY (TIBC) (80638)Indication: Anemia, unspecified On: Request IRON (78660)Indication: Anemia, unspecified On: Request FOLIC ACID SERUM (88507)Indication: Anemia, unspecified On: Request HAPTOGLOBIN (05457)Indication: Anemia, unspecified On: Request FERRITIN (14405)Indication: Anemia, unspecified On: Request CBC, PLATELETS & AUT DIFF (27593)Indication: Anemia, unspecified On: Request HgA1C , Office (33004)Indication: Abnormal glucose tolerance test On: : Request CBC with manual diff (40218)Indication: Anemia, unspecified On: :49 Request HgA1C , Office (41100)Indication: Abnormal glucose tolerance test On: 77-Ism-803834:30 Request Comments: controlled URINALYSIS W/O MICRO (93377)Indication: HYPERTENSION, NOS On: :03 Request TSH (11417)Indication: Acquired hypothyroidism On: :03 Request MICROALBUMIN URINE QUANT (64007)Indication: HYPERTENSION, NOS On: 53-Dnp-525820:03 Request METABOLIC PANEL, COMPREHENSIVE (56687)Indication: HYPERTENSION, NOS On: :03 Request LIPID PANEL (37044)Indication: HYPERTENSION, NOS On: 29-Rfx-204170:03 Request CBC WITH MANUAL DIFF (44012)Indication: HYPERTENSION, NOS On: 44-Zvn-095663:03 Request Planned Procedures Aerosol Treatment (07232)By: On: 14-Apr-2018 Intent Thelma Sofia Comments: Lungs clear after albuterol aerosol treatment Ultrasound - LiverBy: Melanie DO, On: 21-Nov-2017 Intent Doris Melanie DO, Doris Melanie DO, Doris B 12 Injection, 1000 mcg ([id number])By: On: 21-Nov-2017 Intent Melanie DO, Doris Melanie DO, Comments: Vitamin b12 1000mcg injection lot:[id number]:04/2019L DELT IMpt tolerated well CARYN DUMONT Doris Melanie DO, Doris PHYSICAL THERAPY (61250)By: [place], On: 28-Oct-2017 Intent Thelma Radiology - Hip - LeftBy: [place], On: 28-Oct-2017 Intent Thelma Aerosol Treatment (49412)By: Melanie On: 07-Aug-2017 Intent DO, Doris Melanie DO, Doris Comments: more a/e less nois e Melanie DO, Doris Spirometry (30374)By: Melanie KEBEDE, On: 07-Aug-2017 Intent Doris Melanie DO, Doris Melanie Comments: really poor techniq DO, Doris Radiology - Chest- PA and LatBy: On: 07-Aug-2017 Intent Melanie DO, Doris Melanie DO, Doris Melanie DO, Doris IV Needle placement (91324)By: On: 02-Aug-2017 Intent Melanie DO, Doris Melanie DO, Doris Melanie DO, Doris INFUSION, NORMAL SALINE SOLUTION , On: 02-Aug-2017 Intent 1000 CC (Special Coverage Comments: lot:[id number]:02-26-2019rte:right anticubdose:1000ml given by:david Snow LPN Instructions Apply. See MCM: 2048) ([id number])By: Melanie DO, Doris Melanie DO, Doris Melanie DO, Doris INFUSION, NORMAL SALINE SOLUTION , On: 01-Aug-2017 Intent 1000 CC (Special Coverage Comments: lot:[id number]:02-26-2019rte:IV left anticubdose:1000ml NS given by:david Snow LPN Instructions Apply. See MCM: 2048) ([id number])By: Tobi, Marcia Aerosol Treatment (87795)By: Melanie On: 01-Aug-2017 Intent Doris KEBEDE MelanieDoris driscoll DO Comments: more a/e less junky sounding Melanie DODoris PNEUM VAC ADLT/IMUMNOSPR, SBC/INTRM On: 25-Apr-2017 Intent (51204)By: Doris Navarro DO Comments: 0.5cc given sq lt arm lot [id number] exp 09/05/18 Melanie DO, Doris Melnaie DODoris INTENSIVE BEHAVIORAL THERAPY TO On: 25-Apr-2017 Intent REDUCE CARDIOVASCULAR DISEASE RISK, INDIVIDUAL, ETII-DI-HJST, ANNUAL, 15 MINUTES (G0446)By: Doris Navarro DO Melanie DO, Doris Melanie DODoris PMXS-KE-ZXMT BEHAVIORAL COUNSELING On: 25-Apr-2017 Intent FOR OBESITY, 15 MINUTES (G0447)By: Doris Navarro DO Melanie DO, Doris Melanie DO, Doris B 12 Injection, 1000 mcg ([id number])By: On: 25-Apr-2017 Intent Melanie DO, Doris Melanie DO, Comments: 1 ml given lt arm lot [id number] exp 03/15 Doris Jay DO ELECTROCARDIOGRAM, COMPLETE (ECG) On: 25-Apr-2017 Intent (12121)By: Doris Navarro DO Comments: nsr no acute chg Melanie DO, Doris Melanie DO, Doris B 12 Injection, 1000 mcg (J3420)By: On: 14-Mar-2017 Intent Melanie DO, Doris Melanie DO, Comments: lot [id number] 09/16left [id number] mcgas, SENIOR SAS PROGRAMMER Doris Melanie DO, Doris B 12 Injection, 1000 mcg ([id number])By: On: 31-Dec-2016 Intent Melanie DO Doris Melanie DO, Comments: [id number], SENIOR SAS PROGRAMMER Doris Melanie DO, Doris B 12 Injection, 1000 mcg ([id number])By: On: 20-Sep-2016 Intent Melanie DO, Doris Melanie DO, Comments: lot:[id number]: 4/18Dose: 1,000 mcgSite: R dltdLocation; IMby:, SENIOR SAS PROGRAMMER Doris Melanie DO, Doris Solu- Medrol Injection, 125mg On: 20-Aug-2016 Intent ([id number])By: MelanieJd driscoll DOeen Comments: lot: [id number]: 01/14site/route: LGM/IMamt:2mLVIS signed when applicableChelsea, CRITICAL CARE RN Melanie DO, Doris Melanie DO, Doris Aerosol Treatment (79386)By: Melanie On: 20-Aug-2016 Intent DO, Doris Melanie DO, Doris Comments: albulterol 0.83%relistedned nad more a/e less noise Melanie DO, Doris B 12 Injection, 1000 mcg (J3420)By: On: 20-Aug-2016 Intent Melanie DO, Doris Melanie DO, Comments: lot: [id number]: ite/route: L del/IMamt: 1mLVIS signed when applicableChelsea, CRITICAL CARE RN Doris Melanie DO, Doris Spirometry (03957)By: Melanie DO, On: 16-Aug-2016 Intent Doris Melanie DO, Doris Melanie Comments: ok stable - DO, Doris Aerosol Treatment (71005)By: Melanie On: 16-Aug-2016 Intent DO, Doris Melanie DO, Doris Comments: albulterol 0.83%more a.e stil some niose in RUL -- junky and easy to cough Melanie DO, Doris Solu- Medrol Injection, 125mg On: 16-Aug-2016 Intent ([id number])By: MelanieJd driscoll DOeen Comments: lot [id number] mgright gm, IMas SENIOR SAS PROGRAMMER Melanie DO, Doris Melanie DO, Doris B 12 Injection, 1000 mcg (J3420)By: On: 20-Jul-2016 Intent Melanie DO, Doris Melanie DO, Comments: B12lot:[id number]:ite:rt deltroute:IMdose:1mlD.HAY Valentin Doris Melanie DO, Doris Solu- Medrol Injection, 125mg On: 20-Jul-2016 Intent (J2930)By: Doris Navarro DO Comments: lot: [id number]: 01/14site/route: RGM/IMamt: 2mLVIS signed when applicableChelsea, CRITICAL CARE RN Melanie DO, Doris Melanie DO, Doris Aerosol Treatment ([id number])By: Melanie On: 20-Jul-2016 Intent DO, Doris Melanie DO, Doris Comments: less wheeze good a/e- less irritability with breathing Doris Navarro DO Radiology - Chest- PA and LatBy: On: 20-Jul-2016 Intent Melanie DO, Doris Melanie DO, Doris Melanie DO, Doris Spirometry ([id number])By: Melanie KEBEDE, On: 20-Jul-2016 Intent Doris Melanie DO, Doris Melanie Comments: mild restriction =- poor curve and technique DO, Doris ELECTROCARDIOGRAM, COMPLETE (ECG) On: 20-Jul-2016 Intent ([id number])By: Doris Navarro DO Comments: sinus braden no acute chg Melanie DO, Doris Melanie DO, Doris B 12 Injection, 1000 mcg (J3420)By: On: 29-May-2016 Intent Melanie DO, Doris Melanie DO, Comments: Lot:[id number]:11/13Dose:1mlRoute:IMSite:r armGiven By:SAADIA signed Doris Melanie DO, Doris Flu Vaccine (Quadrivalent) [id number]: On: 29-May-2016 Intent Melanie DO, Doris Melanie DO, Comments: Lot:[id number]:01/25/17Dose:0.5mLRoute:IMSite:L DltdGiven By:SAADIA signed Doris Melanie DO, Doris B 12 Injection, 1000 mcg (J3420)By: On: 21-May-2016 Intent Melanie DO, Doris Melanie DO, Doris Melanie DO, Doris B 12 Injection, 1000 mcg (J3420)By: On: 18-May-2016 Intent Melanie DO, Doris Melanie DO, Comments: B12lot:[id number]:ite:rt deltroute:IMdose:1mlD.HAY Valentin Doris Melanie DO, Doris B 12 Injection, 1000 mcg (J3420)By: On: 11-May-2016 Intent Melanie DO, Doris Melanie DO, Comments: lot [id number] [facility] [place] dl[place], SENIOR SAS PROGRAMMER Doris Melanie DO, Doris B 12 Injection, [...] ite/route: R del/IMamt: 1mLVIS signed when applicableChelsea, CRITICAL CARE RN Doris Melanie DO, Doris B 12 Injection, 1000 mcg (J3420)By: On: 13-Apr-2016 Intent Mckinley Valentin Comments: B12lot:[id number]:ite:lt deltroute:IMdose:1mlD.HAY Valentin INTENSIVE BEHAVIORAL THERAPY TO On: 09-Apr-2016 Intent REDUCE CARDIOVASCULAR DISEASE RISK, INDIVIDUAL, [id number], ANNUAL, 15 MINUTES (G0446)By: Melanie DO, Doris Melanie DO, Doris Melanie DO, Doris BMTU-VE-OKKL BEHAVIORAL COUNSELING On: 09-Apr-2016 Intent FOR OBESITY, 15 MINUTES (G0447)By: Melanie DO, Doris Melanie DO, Doris Melanie DO, Doris MAMMOGRAM, SCREENING, BOTH BREAST On: 09-Apr-2016 Intent ([id number])By: Melanie DO, Doris Melanie DO, Doris Melanie DO, Doris DEXA SCAN AXIAL SKELETON ([id number])By: On: 09-Apr-2016 Intent Melanie DO, Doris Melanie [...] Comments: Lot:[id number]:04/14Dose:1mlRoute:IMSite:l armGiven By:SAADIA signed Aerosol Treatment ([id number])By: Fast On: 03-Aug-2015 Intent DO, Maggie A B 12 Injection, 1000 mcg (J3420)By: On: 17-May-2015 Intent Fast DO Maggie A Comments: Lot:[id number]:11/12Dose:1mlRoute:IMSite:l armGiven By:SAADIA signed Flu Vaccine (Quadrivalent) 13754Xp: On: 17-May-2015 Intent Fast DO Maggie A Comments: lot [id number]: 01/26/2016site/route L sol, IMamt 0.5mlVIS and ABN signed when applicableChelsea, CMAFM4 ADMINISTRATION OF INFLUENZA VIRUS On: 17-May-2015 Intent VACCINE (G0008)By: Maggie Tracey DO A B 12 Injection, 1000 mcg (J3420)By: On: 15-Feb-2015 Intent Kanika Georges Comments: Lot:[id number]:11.16Route:IMSite:R deltoidDose: 1 mLgiven by: Kanika Georges CMA DANIEL (Ankle Brachial Index) On: 08-Feb-2015 Intent ([id number])By: Maggie Tracey DO Radiology - Lumbar SpineBy: Alexy KEBEDE, On: 08-Feb-2015 Intent Maggie Armstrong Ultrasound - ThyroidBy: Alexy KEBEDE, On: 09-Nov-2014 Intent Maggie A B 12 Injection, 1000 mcg (J3420)By: On: 09-Nov-2014 Intent Camelia Tracey DOa A Comments: lot [id number] mcgleft dltdIMas, SENIOR SAS PROGRAMMER Radiology - Chest- PA and LatBy: On: 13-Sep-2014 Intent Alexy KEBEDE Maggie A Comments: call stat Pulse Oximetry ([id number])By: Alexy KEBEDE, On: 13-Sep-2014 Intent Maggie A Comments: 97% Inhaler Demonstration ([id number])By: On: 07-Sep-2014 Intent Kimberley Loyd CNP Radiology - Chest- PA and LatBy: On: 14-Jul-2014 Intent Alexy KEBEDE Maggie A Comments: call rsults Spirometry ([id number])By: Alexy KEBEDE, On: 14-Jul-2014 Intent Maggie A Comments: good effort and curve mild rest /obst Prevnar 13 (36960)By: Alexy KEBEDE, On: 30-Jun-2014 Intent Maggie A Comments: lot [id number] 09/2015location L armroute imgiven by - msmithVIS and/or ABN signed MAMMOGRAM, SCREENING, BOTH BREAST On: 14-Apr-2014 Intent ([id number])By: Maggie Tracey DO A B 12 Injection, 1000 mcg (J3420)By: On: 14-Apr-2014 Intent Camelia Tracey DOa A Comments: Lot #:[id number] date:mount given:1mlRoute: IMSite given: left deltoidGiven by: HAY Zavala Cartoid DopplerBy: Alexy DO Maggie A On: 14-Apr-2014 Intent Eprescribed prescriptions (G8553)By: On: 07-Oct-2013 Intent Fast DO, Maggie A DXA, BONE DENSITY, AXIAL SKELETON On: 20-Jul-2013 Intent ([id number])By: Alexy KEBEDE Maggie A Comments: aug Pelvic and Breast, Medicare On: 20-Jul-2013 Intent (G0101)By: Alexy DOCameliaa A Cartoid DopplerBy: Fast DO, Maggie A On: 07-Jul-2013 Intent Eprescribed prescriptions (G8553)By: On: 07-Jul-2013 Intent Raiaz Ortiz FLU VAC, SPLIT, >3 YEARS, INTRAMUSC On: 04-May-2013 Intent ([id number])By: Maritza Cantor Comments: lot [id number] 2014site/route L sol, IMamt 0.5mlVIS and ABN signed when applicableChelsea, [facility] ADMINISTRATION OF INFLUENZA VIRUS On: 04-May-2013 Intent VACCINE (G0008)By: Maritza Cantor Radiology - Hip - LeftBy: Alexy KEBEDE, On: 07-Apr-2013 Intent Maggie Armstrong Eprescribed prescriptions (G8553)By: On: 07-Apr-2013 Intent Raiza Ortiz Eprescribed prescriptions (G8553)By: On: 05-Jan-2013 Intent Raiza Ortiz Spirometry ([id number])By: Alexy KEBEDE, On: 01-Dec-2012 Intent Maggie A Comments: good effort and curve normal Radiology - Chest- PA and LatBy: On: 01-Dec-2012 Intent Alexy KEBEDE Maggie A Comments: stat call wet read Eprescribed prescriptions (G8553)By: On: 01-Dec-2012 Intent Raiza Ortiz Pulse Oximetry ([id number])By: Angel, On: 01-Dec-2012 Intent Raiza Comments: 98% Eprescribed prescriptions (G8553)By: On: 27-Nov-2012 Intent Melanie DO, Doris Melanie DO, Doris Melanie DO, Doris MAMMOGRAM, SCREENING, BOTH BREASTS On: 29-Sep-2012 Intent ([id number])By: Camelia Tracey DOa A EKG (88864)By: Raiza Ortiz On: 29-Sep-2012 Intent Comments: ekg- 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 axis and no acute st t wave changes Eprescribed prescriptions (G8553)By: On: 29-Sep-2012 Intent Raiza Ortiz Eprescribed prescriptions (G8553)By: On: 03-Sep-2012 Intent Raiza Ortiz Eprescribed prescriptions (G8553)By: On: 30-Jul-2012 Intent Raiza Ortiz B 12 Injection, 1000 mcg (J3420)By: On: 23-Jun-2012 Intent Maggie Tracey DO A Comments: Lot:[id number]:Dose:1mlRoute:IMSite:L armGiven By:SAADIA signed Eprescribed prescriptions (G8553)By: On: 23-Jun-2012 Intent Raiza Ortiz B 12 Injection, 1000 mcg (J3420)By: On: 25-Mar-2012 Intent Maricruz Rivera LPN Comments: Lot #[id number]-06/10Site-right deltoidDose-1 mlgiven by: Dani Rivera LPN Eprescribed prescriptions (G8553)By: On: 25-Mar-2012 Intent Maggie Tracey DO FLU VAC, SPLIT, >3 YEARS, INTRAMUSC On: 25-Mar-2012 Intent (43405)By: Patsy Leslie LPN Comments: Lot/Exp: [id number], 12/2011Given in L Dltd, IMPrefilled SyringeBy CARYN Garner ADMINISTRATION OF INFLUENZA VIRUS On: 25-Mar-2012 Intent VACCINE (G0008)By: Patsy Leslie LPN Echo CompleteBy: Alexy KEBEDE Maggie A On: 07-Dec-2011 Intent B 12 Injection, 1000 mcg (J3420)By: On: 07-Dec-2011 [address] - OtherBy: Alexy DO Maggie A On: 03-Oct-2011 Intent Comments: get cta of carotid arteries TDAP VACCINE >7 IM ([id number])By: On: 03-Oct-2011 Intent Raiza Ortiz B 12 Injection, 1000 mcg (J3420)By: On: 07-Sep-2011 Intent Raiza Ortiz Comments: Lot #[id number]-/Site-left deltoidDose-1 mlgiven by: Dani Rivera LPN Cartoid DopplerBy: Maggie Tracey DO On: 07-Sep-2011 Intent Comments: in september DXA, BONE DENSITY, AXIAL SKELETON On: 07-Sep-2011 Intent ([id number])By: Maggie Tracey DO MAMMOGRAM, SCREENING, BOTH BREASTS On: 07-Sep-2011 Intent (22702)By: Maggie Tracey DO Aerosol Treatment ([id number])By: Ciesa On: 08-Aug-2011 Intent 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, Kimberley Poe EKG (44723)By: Raiza Ortiz On: 06-Jun-2011 Intent Comments: ekg showed normal sinus rhythym, left axis, no acute st/t wave changes DXA, BONE DENSITY, AXIAL SKELETON On: 06-Jun-2011 Intent ([id number])By: Maggie Tracey DO FLU VAC, SPLIT, >3 YEARS, INTRAMUSC On: 11-May-2011 Intent (39806)By: Maricruz Rivera LPN Comments: Lot #[id number]-24/20/Site-left deltoidgiven by: Dani Rivera LPN B 12 [...] PNEUM VAC ADLT/IMUMNOSPR, SBC/INTRM On: 03-Jul-2010 Intent ([id number])By: Maggie Tracey DO Comments: Lot #[id number]-/10/07Site-left deltoidDose- 0.5mlgiven by:[facility] ADMINISTRATION OF PNEUMOCOCCAL On: 03-Jul-2010 Intent VACCINE (G0009)By: Maggie Tracey DO MAMMOGRAM, SCREENING, BOTH BREASTS On: 03-Jul-2010 Intent ([id number])By: Maggie Tracey DO B 12 Injection, 1000 mcg (J3420)By: On: 20-Jun-2010 Intent Maggie Tracey DO Comments: Lot #[id number]-12/07Site-left deltoidDose-1 mlgiven by:[facility] B 12 Injection, 1000 mcg (J3420)By: On: 10-May-2010 Intent Apoorva Calle Comments: Lot:[id number]:12/07Dose:1000mcg/1mlRoute:IMSite:right deltoid Given by: HAY Birch FLU VAC, SPLIT, >3 YEARS, INTRAMUSC On: 10-May-2010 Intent ([id number])By: Apoorva Calle Comments: Lot:[id number] 4PExp:4/2011Dose:0.5mlRoute:IMSite:Left Deltoid Given by: HAY Birch ADMINISTRATION OF INFLUENZA VIRUS On: 10-May-2010 Intent VACCINE (G0008)By: Apoorva Calle Doppler Ultrasound OtherBy: Alexy KEBEDE, On: 12-Apr-2010 Intent Maggie Armstrong Comments: both legs stat- left leg swelling- call wet read Spirometry ([id number])By: Alexy KEBEDE, On: 12-Apr-2010 Intent Maggie A Comments: good effort and curve normal B 12 Injection, 1000 mcg (J3420)By: On: 05-Apr-2010 Intent Maggie Tracey DO Ultrasound - GallbladderBy: Alexy KEBEDE, On: 01-Feb-2010 Intent Maggie A IV Needle placement (16863)By: On: 10-Jan-2010 Intent Ana Guzman Comments: IV 22 gauge inserted in right antecubital on first attempt and 0.9 NSS running without difficulty-AW INFUSION, NORMAL SALINE SOLUTION , On: 10-Jan-2010 Intent 1000 CC (Special Coverage Instructions Apply. See MCM: 2049) (J7030)By: Kimberley Loyd CNP THER/PROPH/DIAG INJ, SC/IM On: 10-Jan-2010 Intent (35900)By: Kimberley Loyd CNP Radiology - Knee - Right - Weight On: 03-Jan-2010 Intent BearingBy: Maggie Tracey DO EKG (33621)By: Raiza Ortiz On: 03-Jan-2010 Intent Comments: ekg showed normal sinus rhythym, left axis, no acute st/t wave changes Aerosol Treatment (02079)By: Evert On: 19-Oct-2009 Intent Kimberley LOVE Cartoid DopplerBy: Maggie Tracey DO On: 14-Jun-[address] - Brain/HeadBy: Maggie Tracey DO On: 06-Jun-2009 Intent MAMMOGRAM, SCREENING, BOTH BREASTS On: 06-Jun-2009 Intent ([id number])By: Maggie Tracey DO DXA, BONE DENSITY, AXIAL SKELETON On: 06-Jun-2009 Intent ([id number])By: Maggie Tracey DO FLU VAC, SPLIT, >3 YEARS, INTRAMUSC On: 12-May-2009 Intent (40879)By: Maricruz Rivera LPN Comments: Lot #[id number]-left deltoidgiven by:[facility] ADMINISTRATION OF INFLUENZA VIRUS On: 12-May-2009 Intent VACCINE (G0008)By: Maricruz Rivera LPN Radiology - Hand - RightBy: Alexy KEBEDE, On: 26-Jan-2009 Intent Maggie Armstrong Radiology - Wrist - RightBy: Fast On: 26-Jan-2009 Intent DO Maggie A Comments: call wet read Pulse Oximetry (02176)By: Aelxy KEBEDE, On: 27-Dec-2008 Intent Maggie A Comments: 98 Inhaler Demo (36722)By: Alexy KEBEDE, On: 27-Dec-2008 Intent Maggie A Spirometry (94378)By: Alexy KEBEDE, On: 27-Dec-2008 Intent Maggie A Comments: good effort and curve has small airways diminished Radiology - Chest- PA and LatBy: On: 27-Dec-2008 Intent Alexy KEBEDE Maggie A Echo CompleteBy: Alexy KEBEDE Maggie A On: 08-Nov-2008 Intent Comments: elevated bp - increase patricia EKG (80200)By: Camelia Tracey DOa A On: 08-Nov-2008 Intent Comments: ekg showed normal sinus rhythym, leftl axis, no acute st/t wave changes rsr unchanged Bio Z (35318)By: Maggie Tracey DO A On: 08-Nov-2008 Intent Inhaler Demo (98355)By: Melanie KEBEDE, On: 02-Sep-2008 Intent Doris Jay DO, DO, Kathleen Aerosol Treatment (74172)By: Melanie On: 02-Sep-2008 Intent Doris KEBEDE DO, Kathleen Comments: less echoey -- better less cough Doris Navarro DO EKG (04998)By: Doris Navarro DO On: 16-Dec-2007 Intent Doris [...] LSN TRNK/ARM/LEG On: 09-Jul-2007 Intent 0.6-1.0 CM (05824)By: Kimberley Loyd CNP BIOPSY OF SKIN LESION, SINGLE On: 09-Jul-2007 Intent (00861)By: Kimberley Loyd CNP SHAVE SKIN LESION, TRUNK/ARM/LEG On: 02-Jul-2007 Intent (22176)By: Kimberley Loyd CNP BIOPSY OF SKIN LESION, SINGLE On: 02-Jul-2007 Intent (47718)By: Kimberley Loyd CNP B 12 Injection, 1000 mcg (J3420)By: On: 02-Jul-2007 Intent Jesus RUBIN, Lashonda FLU VAC, SPLIT, >3 YEARS, INTRAMUSC On: 04-Jun-2007 Intent (41420)By: Jing Cabello RN Comments: Lot #: [id number] date: 01/03Amount given: 0.5 MLRoute: IMSite given: Left deltoidGiven by: Nathaniel Beal LPN IMMUNIZ ADMNIN, 1 VAC, SNGL/COMBO On: 04-Jun-2007 Intent (17710)By: Jing Cabello RN B 12 Injection, 1000 [...] DO, Doris Melanie DO, Doris IV Infusion (80156)By: Melanie KEBEDE, On: 18-Oct-2006 Intent Doris Melanie DO, Doris Melanie DO, Doris EKG (21009)By: Doris Navarro DO On: 10-Oct-2006 Intent Melanie [...] MCG/ML Injection Solution Ordered: 25-Mar-2012 Pending [place] SENIOR SAS PROGRAMMERMaricruz Armijo Vitamin B-12 1000 MCG/ML Injection Solution [...] The patient does have durable power of transactional attorney and living will. Other providers contributing [...] 13 steps at home. I was at [facility] for 3 days in ICU I broke [...] The patient does have durable power of transactional attorney and living will. The patient has [...] and she off pravastatin and went to [place] and now on 5 mg of crestor- and tolerated she got leg pain and weakness on pravachol- - she got good [facility] [employer] on stroke and vascular in [place]- --bp is good and cough gone and [...] The patient does have durable power of transactional attorney and living will. The damián ent [...] since going to the urgent care at [facility]- on atb yet but will finish [...] feels good- bp is great- went to [facility] for vascular check and said ok- no [...] stroke sx mood controlled has followup in [facility] for vascular issues soon- no chest pain [...] The patient does have durable power of transactional attorney and living will. The patient has [...] not home- no gerd - went to [place] for artery checks and doing ok there- [...] care [facility]: [facility] .-she is [...] laboratory test results: she went back [facility] Saw Dr Shruthi Quinones- ??head of stroke- [...] ER visit: note: (stroke she was at [facility] x 5days released on saturday05/22/12 to 05/27/12). The patient feels well with minor complaints, has decreased energy End: 29-May-2012 14:12 level and is sleeping well. Patient has been compliant with instructions. Current medication use: compliant with dosing regimen. Patient sleeps 7 hours per night. Nutrition: balanced diet and supplement al vitamins. Note for Follow up hospital: [facility] Diagnosis: CVA (434.91), Benign essential hypertension (401.1), Diabetes type II,controlled no comp (250.00), Hypothyroidism (244.9), Carotid stenosis (433.10) [facility] Office Visit On: 22-May-2012 10:33 Encounter Reason: Follow up hospital - Reason for ER visit: note: (TIA. ??Patient was seen by [facility] ER x 3 times last week and then sent to [facility] for psych eval.). 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
--- OUTSIDE RECORDS SUMMARY | 2018-08-20 04:35 | XMS RPT_ITS | Continuity of Care Document ---
:1940 Author Organization [facility] Address [address] [facility] [address] [place] [address] Phone Care Team Providers Name Role Phone Doris Navarro DO Unavailable Camacho Serrano Unavailable Flakito Morales Unavailable [facility] Unavailable Marcello Stein Unavailable Sal Urrutia Unavailable Maggie Tracey DO Unavailable Liza Duron Unavailable CARYN Khan Unavailable Unavailable Patsy Leslie LPN Unavailable Unavailable Marcia Britton Unavailable Unavailable Thelma Sofia Unavailable Unavailable GAURAV Hinojosa Unavailable Unavailable Unavailable [...] artery stenosis (I65.23, 433.10) Comments: goes to [facility] yearly to follow Status: Active Bilateral sciatica (M54.31, 724.3) Status: Active BMI 34.0-34.9,adult (Z68.34, V85.34) Status: [...] related to fatty liver -- did nutrition children's counselor and wt loss / metformin and [...] Status: Active Other anxiety states (F41.1, 300.09) Comments: tryihng to deal with not using benzo -- got off of it fine so she thinks its the pain causing more anx and irritability now Status: Active 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, 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) Status: [...] Active BusPIRone HCl 10 MG Oral Tablet 2 (two) Tablet bid for 30 days Quantity: 60 {Tablet} Refills: 3 Ordered:24-Jun-2018 Arnold Navarro DO, DO, Doris Barrett DO Start : 24-Jun-2018 Active Citalopram Hydrobromide 40 MG Oral Tablet 1 Tablet qd for 30 days Quantity: 30 {Tablet} Refills: 3 Ordered:24-Jun-2018 Arnold Navarro DO, DO, Doris Barrett DO Start : 24-Jun-2018 Active Crestor 5 MG Oral Tablet 1 (one) Tablet qd for 0 days Quantity: 30 {Tablet} Refills: 3 Ordered:29-May-2018 Arnold Navarro DO, DO, Doris Barrett DO Start : 29-May-2018 Active Cytomel 5 MCG Oral Tablet 1/2 Tablet Tablet daily for 30 days Quantity: 15 {Tablet} Refills: 3 Ordered:07-Apr-2018 Thelma hKan LPN Start : 07-Apr-2018 Active HydroCHLOROthiazide 25 MG Oral Tablet 1 (one) Tablet qd for 0 days Quantity: 30 {Tablet} Refills: 3 Ordered:12-May-2018 Arnold Navarro DO, DO, Doris Barrett DO Start : 12-May-2018 Active Losartan Potassium 50 MG Oral Tablet 2 (two) Tablet qd for 0 days Quantity: 60 {Tablet} Refills: 3 Ordered:14-Apr-2018 Arnold Navarro DO, DO, Doris Barrett DO Start : 14-Apr-2018 Active MetFORMIN HCl ER [...] Doris Barrett DO Start : 12-May-2018 Active Plavix 75 MG Oral Tablet 1 (one) Tablet daily for 0 days Quantity: 30 {Tablet} Refills: 3 Ordered:24-Jun-2018 Arnold Navarro DO, DO, KathleenFearon DO, Kathleen Start : 24-Jun-2018 Active PredniSONE 20 MG Oral Tablet 1 (one) Tablet bid for 2days then qd for 4days for 0 days Quantity: 8 {Tablet} Refills: 0 Ordered:24-Jun-2018 Arnold Navarro DO, DO, KathleenFearon DO, Kathleen Start : 24-Jun-2018 Active ProAir HFA 108 (90 Base) MCG/ACT Inhalation [...] KathleenFearon DO, Kathleen Start : 16-Apr-2018 Active TraMADol HCl 50 MG Oral Tablet 1 (one) Tablet bid prn pain for 0 days Quantity: 60 {Tablet} Refills: 0 Ordered:24-Jun-2018 Arnold Navarro DO, DO, KathleenFearon DO, Kathleen Start : 24-Jun-2018 Active Comments:dqnukQ07.90 TraZODone HCl 100 MG Oral Tablet 1-1/2 Tablet qhs for 0 days Quantity: 80 {Tablet} Refills: 3 Ordered:12-Dec-2017 Arnold Navarro DO, DO, KathleenFearon DO, Kathleen Start : 12-Dec-2017 Active Albuterol Sulfate (2.5 MG/3ML) 0.083% Inhalation Nebulization Solution 1 (one) Nebulized Soln Nebulized Soln q 6hrs, prn for 30 days Quantity: 120 {Nebule} Refills: 3 Ordered:08-Aug-2017 ANJANA HinojosaAINE Start : 20-Jul-2016 End : 08-Aug-2017 Inactive [...] days Quantity: 20 {Tablet_ER_24HR} Refills: 0 Ordered:08-Nov-2009 Kimberley Loyd CNP Start : 19-Oct-2009 End : 29-Oct-2009 Inactive [...] Start : 22-Mar-2016 End : 09-Apr-2016 Inactive Doxycycline Hyclate 100 MG Oral Capsule 1 (one) Capsule bid for 0 days Quantity: 20 {Capsule} Refills: 0 Ordered:24-Jun-2018 Thelma Khan LPN Start : 14-Apr-2018 End : 24-Jun-2018 Inactive Etodolac ER 400 MG Oral Tablet [...] Start : 26-Sep-2016 End : 12-Dec-2017 Inactive Eufaula 5-325 MG Oral Tablet 1 q 4hrs prn (5-325 MG) Inactive OMNARIS, 50MCG/ACT (Nasal Suspension) 1-2 Suspension Daily for 0 days Quantity: 1 {Suspension} Refills: 0 Ordered:20-Oct-2008 Raiza Ortiz Start : 20-Oct-2008 End : 08-Nov-2008 Inactive PredniSONE 10 MG Oral Tablet 1 Tablet TAD for 0 days Quantity: 18 {Tablet} Refills: 0 Ordered:24-Jun-2018 Thelma Khan LPN Start : 14-Apr-2018 End : 24-Jun-2018 Inactive Comments:3 pills for 3 days 2 pills for 3 days 1 pill for 3 days Take with food in AM PREVACID, 30MG (Oral Capsule Delayed Release) 1 [...] days Quantity: 120 {Tablet} Refills: 0 Ordered:11-Sep-2012 Maggie Tracey DO Start : 11-Sep-2012 End : 11-Sep-2012 Discontinued Benzonatate 200 MG Oral Capsule 1 (one) Capsule Capsule tid prn cough for 0 days Quantity: 30 {Capsule} Refills: 0 Ordered:28-Oct-2017 Marcia Britton Start : 07-Aug-2017 End : 28-Oct-2017 Discontinued CeleBREX 100 MG Oral Capsule 1 (one) Capsule qd for 30 days Quantity: 30 {Capsule} Refills: 4 Ordered:24-Jun-2018 Arnold Navarro DO, DO, KathleenFearon DO, Kathleen Start : 24-Jun-2018 End : 24-Jun-2018 Discontinued Comments:no chronic nsaid use and now on plavix for [...] : 07-Sep-2014 End : 13-Sep-2014 Discontinued ERGOCALCIFEROL, 11448WSDR (Oral Capsule) 1 (one) Capsule q week for 0 days Quantity: 12 {Capsule} Refills: 3 Ordered:19-Aug-2015 Fast DO, Maggie A Start : 19-Aug-2015 End : 19-Aug-2015 [...] days Quantity: 120 {Tablet} Refills: 3 Ordered:05-Mar-2011 Fast DO, Maggie A Start : 05-Mar-2011 End : 05-Mar-2011 [...] 10 {Tablet} Refills: 0 Ordered:05-Jan-2013 Alexy KEBEDEMaggie Start : 05-Jan-2013 End : 05-Jan-2013 Discontinued LIPITOR, 40MG (Oral Tablet) 1 Tablet QD for 0 days Refills: 0 Ordered:10-Jul-2007 Mai Montero Start : 10-Jul-2007 End : 10-Jul-2007 Discontinued LIPITOR, 40MG (Oral Tablet) 1 (one) Tablet q 3 days q hs for 90 days Quantity: 90 {Tablet} Refills: 3 Ordered:29-Sep-2012 Alexy KEBEDEMaggie Start : 29-Sep-2012 End : 29-Sep-2012 Discontinued L-METHYLFOLATE CALCIUM, 15MG (Oral Tablet) 1 (one) Tablet qd for 30 days Quantity: 30 {Tablet} Refills: 3 Ordered:19-Aug-2015 Raiza Ortiz Start : 06-Jan-2014 End : 19-Aug-2015 Discontinued MELOXICAM, 7.5MG (Oral Tablet) 1 (one) Tablet daily for 30 days Quantity: 30 {Tablet} Refills: 3 Ordered:09-Sep-2009 Alexy Maggie Start : 09-Sep-2009 End : 09-Sep-2009 Discontinued [...] days Quantity: 30 {Tablet} Refills: 0 Ordered:23-Jun-2012 Alexy KEBEDE Maggie Armstrong Start : 23-Jun-2012 End : 23-Jun-2012 Discontinued VITAMIN D (ERGOCALCIFEROL), 20358JNJI (Oral Capsule) 1 Capsule q week for 0 days Quantity: 12 {Capsule} Refills: 2 Ordered:19-Aug-2015 Raiza Ortiz Start : 07-Apr-2013 End : 19-Aug-2015 Discontinued VITAMIN D, 18318YQZD (Oral Capsule) 1 (one) Capsule q week [...] Removal) Completed Comments: 2009 Date Value Details 24-Jun-2018 L/S Spine Min 4 Views Result: Comments: See Note; NOTES: [facility] Imaging Services [address] [place] [address] L/S Spine Min 4 Views MR#: [id number] Acct: [id number] Name: MARICRUZ GRIGSBY Stuart Rep # : [id number] : 1940 F 78 From: Mack Soni MD PCP: Doris Navarro DO Status: REG CLI Study: L/S Spine Min 4 Views Date of Exam: 06/24/18 Exam# [id number] Ordering Dr: Doris Navarro DO [facility] DY: X-RAY - LUMBAR SPINE REASON FOR EXAM: Female, 78 years old. Back pain. TECHNIQUE: 5 view(s) of the lumbar spine were obtained. COMPARISON: 5 views of the lumbar spine February 08, 2015. FINDINGS: Normal lumbar lordosis. There is a 10 degree dextroscoliosis of the lumbar spine centered at L3-4. There is a normal alignment of the vertebrae. There is stable mild m ultilevel endplate spondylosis of the lumbar vertebrae. Stable moderately severe intervertebral disc height narrowing at L4-5. Mild to moderate narrowing at L3- 4 and slight narrowing at L2-3 are mildly worsened from prior study. There is no demonstrated fracture. There is stable degenerative arthropathies of the lower lumbar facet joints. The soft tissue structures are unremarkable. RAD/L/S Spine Min 4 Views IMPRESSION: Degenerative changes of the spine, as detailed above, with slight increased disc height narrowing at L2-3 and L3-4 as well a s mild increased dextroscoliosis since 2014. Electronically Signed: Leopoldo Soni MD at 14:13 EST , Service support , CC: Doris Navarro DO [employer] Salesperson: Signed 14-May-2018 Emergency Department Summary Result: Comments: See Note; NOTES: [facility] Medical Records Department [address] [place] [address] Emergency Department Summary 05/14/18 0908 MR#: [id number] Acct: [id number] Name: MARICRUZ GRIGSBY Rep #: [id number] : 1940 78 From: Zee Denise MD [...] family doctors she is re ferred to [facility] for the shoulder injury and she will return for change in symptoms and she is comfortable with this plan Treatment Plan: [] Disposition: [] Stable home Impression: [] Fall left rib fracture, left shoulder injury This note was generated with Bridgation software. It may contain incorrect words, spelling, and punctuation that were not noted in review of the shelby rt prior to signing ED Disposition - Plan for ED Patient: Chief Complaint: Fall Referrals: Doris Navarro, DO [Primary Care Provider] - What to do if you have Problems For any increased pain, sh ortness of breath, bleeding, nausea or vomiting, chest pain, or any unexpected problems, contact your Primary Care Provider. Call Doctors Registry ([phone]) or report to the closest Emergency Room. Call 911 if necessary. 05/14/18 1530 <Electronically signed by Zee Denise MD> Date Zee Cagle (If Indicated): Date CC: Doris Navarro DO 14-May-2018 Discharge Instruction Result: Comments: See Note; NOTES: [facility] Medical Records Department [address] [place] [address] Discharge Instruction 05/14/18 1133 MR#: [id number] Acct: [id number] Name: MARICRUZ GRIGSBY Stuart Rep #: [id number] : 1940 78 From: Zee Denise MD PCP: Doris Navarro DO Status: REG ER ED Disposition - Plan for ED Patient: Chief Complaint: Fall Instructions: ED M echanical Fall, ED Fx Rib, ED Sprain Shoulder, ED Sling Prescriptions: Hydrocodone Bitart/Apap 5-325 [[place] 5MG-325MG] 1 tab PO Q6H PRN PRN 3 Days #10 tab PRN Reason: Pain Referrals: Doris Navarro DO [Primary Care Provider] - What to do if you have Problems For any increased pain, shortness of breath, bleeding, nausea or vomiting, chest pain, or any unexpected problems, contact your Primary Car e Provider. Call Doctors Registry ([phone]) or report to the closest Emergency Room. Call 911 if necessary. 05/14/18 1134 <Electronically signed by Zee Denise MD> Date ___ Zee Denise MD Cosigner Signature (If Indicated): Date CC: Doris Navarro DO 14-May-2018 Chest PA and Lateral Result: Comments: See Note; NOTES: [facility] Imaging Services [address] [place] [address] Chest PA and Lateral MR#: [id number] Acct: [id number] Name: CLIFFORD HOBBSMARICRUZ THORNE Rep #: [id number] : 1940 F 78 From: Teo Wayne MD PCP: Doris Navarro DO Status: REG ER Study: Chest PA and Lateral Date of Exam: 05/14/18 Exam# [id number] Ordering Dr: Zee Denise MD STUDY: X-RAY CHEST REASON FOR EXAM: Female, 78 years old. Left-sided rib pain following a fall. TECHNIQUE: PA and lateral views of the chest. COMPARISON: Comparison is made with prior study dated 2017. FINDINGS: Stable elevation of the right [...] Teo Wayne MD at 10:11 EDT Tel [phone], Swing by Swing support , CC: MD Sonam Denise; Doris Navarro DO [employer] Salesperson: Signed 14-May-2018 Elbow min 3 Views Result: Comments: See Note; NOTES: [facility] Imaging Services [address] [place] [address] Elbow min 3 Views MR#: [id number] Acct: [id number] Name: CLIFFORD CRUZMARICRUZ Stuart Rep #: : 1940 F 78 From: Teo Wayne MD PCP: Doris Navarro DO Status: [facility] ER Study: Elbow min 3 Views Date of Exam: 05/14/18 Exam# [id number] Ordering Dr: Zee Denise MD STUD Y: [...] Teo Wayne MD at 10:12 EDT Tel [phone], Service support , CC: MD Sonam Denise; Doris Navarro DO [employer] Salesperson: Signed 14-May-2018 Shoulder min 2 Views Result: Comments: See Note; NOTES: [facility] Imaging Services [address] [place] [address] Shoulder min 2 Views MR#: [id number] Acct: [id number] Name: MARICRUZ GRIGSBY Rep #: [id number] : 1940 F 78 From: Teo Wayne MD PCP: Doris Navarro DO Status: [facility] Study: Shoulder min 2 Views Date of Exam: 05/14/18 Exam# [id number] Ordering Dr: Zee Denise MD STUDY: X-RAY [...] Wayne MD at 11:02 EDT Tel [phone], Service support , CC: MD Sonam Denise; Doris Navarro DO [employer] Salesperson: Signed 06-Feb-2018 History and Physical Exam Result: Comments: See Note; NOTES: [facility] Medical Records Department [address] [place] [address] History and Physical 02/06/182050 MR#: [id number] Acct: [id number] Name: MARICRUZ GRIGSBY Stuart Rep #: [id number] : 1940 77 From: María Barnes MD [...] cholecystectomy Psychiatric History: No pertinent psych hx 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 This note was generated with Zyrra software. It may contain incorrect words, spelling, and punctuation that were not noted in checking the note before signing. Code Visit OBSV E AND M: 32167 Initial observation care L3 2108 <Electronically signed by María Barnes MD> Date María Barnes MD Cosigner Signature: Date (if applicable) CC: María Barnes; Doris Navarro DO Signed 06-Feb-2018 Brain/Head without Contrast Result: Comments: See Note; NOTES: [facility] Imaging Services [address] [place] [address] Brain/Head without Contrast MR#: [id number] Acct: [id number] Name: MARICRUZ GRIGSBY Rep #: [id number] : 1940 F 77 From: Renata Lee MD PCP: Doris Navarro DO Status: [facility] Study: Brain/Head without Contrast Date of Exam: 02/06/18 Exam# [id number] Ordering Dr: Cameron Marte MD STUDY: CT [...] , CC: Doris Navarro DO; Jered Marte [employer] Salesperson: Signed 06-Feb-2018 Chest 1 View Result: Comments: See Note; NOTES: [facility] Imaging Services [address] [place] [address] Chest 1 View MR#: [id number] Acct: [id number] Name: MARICRUZ GRIGSBY Rep #: [id number] : 1940 F 77 From: Renata Lee MD PCP: Doris Navarro DO Status: [facility] ER Study: Chest 1 View Date of Exam: 02/06/18 Exam# [id number] Ordering Dr: Jered Marte MD STUDY: X-RAY [...] , CC: Doris Navarro DO; Jered Marte [employer] Salesperson: Signed 25-Nov-2017 Liver Result: Comments: See Note; NOTES: [facility] Imaging Services [address] [place] [address] Liver MR#: [id number] Acct: [id number] Name: MARICRUZ GRIGSBY Rep #: [id number] : 1940 F 77 From: Mack Hand MD PCP: Doris Navarro DO Status: REG CLI Study: Liver Date of Exam: 11/25/17 Exam# [id number] Ordering Dr: Doris Navarro DO STUDY: ABDOMINAL [...] MD at 12:34 EDT , Service support [phone], CC: Doris Navarro DO [employer] Salesperson: Signed 29-Oct-2017 Hip 2-3 Views with Pelvis Result: Comments: See Note; NOTES: [facility] Imaging Services [address] [place] [address] Hip 2-3 Views with Pelvis MR#: [id number] Acct: [id number] Name: MARICRUZ GRIGSBY ep #: [id number] : 1940 F 77 From: Benji Finch PCP: Doris Navarro DO Status: REG CLI Study: Hip 2-3 Views with Pelvis Date of Exam: 10/29/17 Exam# [id number] Ordering Dr: Thelma Sofia STUDY: X-RAY - PELVIS AND LEFT HIP [...] , CC: QUINN Sofia; Doris Navarro DO [employer] Salesperson: Signed 27-Aug-2017 12 Lead Electrocardiogram Result: Comments: See Note; NOTES: [facility] Cardiovascular Services [address] [place] [address] 12 Lead EKG 08/24/17 1719 MR#: [id number] Acct: [id number] Name: JOSE AHOMERO FABYPORTIA THORNE MISHA Stuart Rep #: [id number] : 1940 77 From: Maurilio Meraz MD [...] C onfirmed by SOLEDAD STREETER, MAURILIO ([id number]), videotape editor STACY CARTER ([id number]) on 08/27/2017 10:37:34 AM Referred By: EITAN Confirmed By:MAURILIO MERAZ MD 08/27/17 1037 Date Maurilio Meraz MD CC: Doris Navarro DO Signed 25-Aug-2017 Emergency Department Summary Result: Comments: See Note; NOTES: [facility] Medical Records Department [address] [place] [address] Emergency Department Summary 08/24/17 1709 MR#: [id number] Acct: [id number] Name: CLIFFORD CRUZMARICRUZ L Rep #: [id number] : 1940 77 From: Zee Denise MD [...] at home. She has no history of NV PE or DVT she does have history [...] be altered This note was generated with W[employer] dictation software. It may contain incorrect words, spelling, and punctuation that were not noted in review of the chart prior to signing ED Disposition - Plan for ED Patient: Chief Complaint: Shor tness of Breath Referrals: Doris Navarro, DO [Primary Care Provider] - What to do if you have Problems For any increased pain, shortness of breath, bleeding, nausea or vomiting, chest pain, or any unexpected problems, contact your Primary Care Provider. Call Doctors Registry ([phone]) or report to the closest Emergency Room. Call 911 if necessary. 08/25/17 0001 <Electronically sig radha by Zee Denise MD> Date Zee Denise MD Cosigner Signature (If Indicated): Date CC: Doris Navarro DO 24-Aug-2017 Discharge Instruction Result: Comments: See Note; NOTES: [facility] Medical Records Department [address] [place] [address] Discharge Instruction 08/24/171819 MR#: [id number] Acct: [id number] Name: MARICRUZ GRIGSBY Rep #: [id number] : 1940 77 From: Zee Denise MD [...] your Primary Care Provider. Call Doctors Registry ([phone]) or report to the closest [facility] Room. Call 911 if necessary. 08/24/171820 <Electronically signed by Zee Denise MD> Date Zee Denise MD Cosign er Signature (If Indicated): Date CC: Doris Navarro DO 24-Aug-2017 Chest PA and Lateral Result: Comments: See Note; NOTES: [facility] Imaging Services [address] [place] [address] Chest PA and Lateral MR#: [id number] Acct: [id number] Name: MARICRUZ GRIGSBY Rep #: [id number] : 1940 F 77 From: Stacy Tapia MD PCP: Doris Navarro DO Status: REG ER Study: Chest PA and Lateral Date of Exam: 08/24/17 Exam# [id number] Ordering Dr: Zee Denise MD XR Chest [...] CC: MD Sonam Denise; Doris Navarro DO [employer] Salesperson: Signed 07-Aug-2017 Chest PA and Lateral Result: Comments: See Note; NOTES: [facility] Imaging Services [address] [place] [address] Chest PA and Lateral MR#: [id number] Acct: [id number] Name: MARICRUZ GRIGSBY Rep #: [id number] : 1940 F 77 From: Teo Wayne MD PCP: Doris Navarro DO Status: REG CLI Study: Chest PA and Lateral Date of Exam: 08/07/17 Exam# [id number] Ordering Dr: Doris Navarro DO STUDY: X-RAY [...] Logan i, MD at 13:49 EST Tel [phone], Service support , CC: Doris Navarro DO [employer] Salesperson: Signed 20-Nov-2016 Operative Report Result: Comments: See Note; NOTES: [facility] Medical Records Department [address] [place] [address] Operative Report 11/14/16 0736 MR#: [id number] Acct: [id number] Name: MARICRUZ BREAUX Rep #: [id number] : 1940 76 From: Liza Duron DO PCP: Doris Navarro DO Status: [facility] [place] [facility] [place] Operation Date of Procedure: 11/14/16 Pre-Operative Diagnosi s: Right third and fourth trigger fingers Post-Operative Diagnosis: Name Surgery/Procedure Performed:: Right hand third and fourth A1 shannan release Type of Anesthesia:: Trace,[place] Anesthesiologist: Fox Michaels Estimated Blood Loss (mL): [...] and consent reviewed. Right hand was marked. Radha sims is brought to the operating room placed supine on the operating table. Sign, anesthesia, antibiotics were administered. The right arm was prepped and draped after [place] block was initiated. We markdedra posey out her incisions for our third and [...] Dragon disclaimer This note was generated with [employer] dictation software. It may contain incorrect words, spellin g, and punctuation that were not noted in checking the note before signing. 11/20/16 1231 <Electronically signed by Liza Duron DO> Date Lizadedra Powersluis e KEBEDE CC: Liza Duron DO; Doris Navarro DO Signed 16-Nov-2016 Oncology Progress Note Result: Comments: See Note; NOTES: [facility] Medical Records Department [address] [place] [address] Oncology Progress Note MR#: [id number] Acct: [id number] Name: PORTIA GRIGSBY Rep #: [id number] : 1940 76 From: Sal Urrutia MD [...] level. Sal Urrutia MD T: NTS JOB: [id number] 11/16/16 0850 <Electronically signed by Sal Urrutia MD> Date Sal Urrutia MD Cosigner Signature (If Indicated): Date CC: Date Dictated: 11/08/161304 Date Transcribed: 11/08/161304 [employer] Salesperson: Signed 14-Nov-2016 Discharge Instruction Result: Comments: See Note; NOTES: [facility] Medical Records Department [address] [place] [address] Instructions for Home/Discharge Instructions 11/14/16 0735 MR#: [id number] Acct: [id number] Name: MARICRUZ GRIGSBY Rep #: [id number] : 1940 76 From: Liza Duron DO [...] mg PO DAILY 11/09/16 Hydrocodone Bitart/Apap 5-325 [[place] 5MG- 325MG] 1 - 2 tablet PO Q6H PRN PRN #20 tablet 11/14/16 The following prescriptions were given: Hydrocodone Bitart/Apap 5- 325 [[place] 5MG-325MG] 1 - 2 tablet PO Q6H PRN PRN #20 tablet PRN Reason: Pain Primary Care Physician: Doris Navarro DO [Primary Care Provider] - Please Follow Up With: Liza Duron - [phone] 11/14/16 5236 <Electronically signed by Liza Duron DO> Date Liza Duron DO CC: Doris Navarro DO 20-Jul-2016 Chest PA and Lateral Result: Comments: See Note; NOTES: [facility] Imaging Services [address] [place] [address] Verdana 4d Chest PA and Lateral MR#: [id number] Acct: [id number] Name: JOSE AHOMERO JAQUAN CRUZ Rep #: [id number] : 1940 F 76 From: Mack Hand MD PCP: Doris Navarro DO Status: REG CLI Study: Chest PA and Lateral Date of Exam: 07/20/16 Exam# [id number] Ordering Dr: Doris Navarro DO STUDY: X-RAY [...] at 12:24 EST Tel , Service support [phone], CC: Doris Navarro DO [employer] Salesperson: Signed 26-Jan-2016 Echocardiogram Complete Result: Comments: See Note; NOTES: [facility] Cardiovascular Services [address] [place] [address] Echo Complete 01/26/16 1008 MR#: [id number] Acct: [id number] Name: MARICRUZ PARMAR Rep #: [id number] : 1940 75 From: Mack Dickerson MD Attending Dr: Maggie Tracey DO Status: REG CLI Ordering Dr: Maggie Tracey DO Date: 01/26/16 Location: [facility] Sex: F C Admsouleymane ed: Reason For Study: Aortic stenosis Procedure [...] Physician: Maggie Tracey Performed By: Sharyn Bear RDCS 01/26/16 1612 Date ___ Mack Dickerson MD CC: Maggie Tracey DO Date Dictated: 01/26/16 1008 Date Transcribed: 01/26/161611 [employer] Salesperson: Signed 05-Dec-2015 Chest 1 View (Portable) Result: Comments: See Note; NOTES: [facility] Imaging Services [address] [place] [address] Verdana 4d Chest 1 View (Portable) MR#: [id number] Acct: [id number] Name: MARICRUZ PEÑALOZA Rep #: [id number] : 1940 F 75 From: Yari Garcia MD PCP: Maggie Tracey DO Status: PRE ER Study: Chest 1 View (Portable) Date of Exam: 12/05/15 Exam# [id number] Ordering Dr: Johnnie Baez MD STUDY: X-RAY [...] at 16:44 EDT Tel , Service support [phone], RAD/Chest 1 V iew (Portable) IMPRESSION: Underexpansion of the lungs. Mild to moderate cardiomegaly. Electronically Signed: Yari Garcia MD at 16:44 EDT Tel , Service support , CC: Maggie Tracey DO; Johnnie Baez MD [employer] Salesperson: Signed 05-Dec-2015 Spirometry (38302) Comments: good effort and curvenormal Result: 05-Dec-2015 EKG (42784) Comments: ekg showed normal sinus rhythym, normal axis, no acute st/t wave changes Result: [MEASUREMENTS ANALYSIS] Date of Test: 12/05/2015 14:27:41; Heart Rate: 93; AR Interval: 202; QRS: 96; QT Interval: 352; Corrected QT Interval (QTc): 409; P Wave [place]: 48; QRS Wave [place]: -26; T Wave [place] : 55; Blood Pressure: 134/64 [ECG DIAGNOSTIC STATEMENTS] Date of Test: 12/05/2015 14:27:41; Summary: Sinus Rhythm WITHIN NORMAL LIMITS 21-Sep-2015 12 Lead Electrocardiogram Result: Comments: See Note; NOTES: [facility] Cardiovascular Services [address] [place] [address] 12 Lead EKG 09/19/15 0908 MR#: [id number] Acct: [id number] Name: MARICRUZ VIGIL Rep #: [id number] : 1940 75 From: Maurilio Meraz MD [...] wave progression Confirmed by SOLEDAD STREETER, MAURILIO ([id number]), videotape editor STACY CARTER ([id number]) on 09/21/2015 11:27:40 AM Referred By: JE Confirmed By:MAURILIO MERAZ MD 1127 Date Maurilio Meraz MD CC: Maggie Tracey DO Date Dictated: 09/19/15907 Date Transcribed: 09/19/15907 [employer] Salesperson: Signed 19-Sep-2015 Discharge Instruction Result: Comments: See Note; NOTES: [facility] Medical Records Department [address] [place] [address] Discharge Instruction 09/19/15 1020 MR#: [id number] Acct: [id number] Name: CLIFFORD CRUZMARICRUZ Stuart Rep #: [id number] : 1940 75 From: Johnnie Beaz MD PCP: Maggie Tracey DO Status: DEP [...] chest pain, or any unexpected problems, contact [facility] doctor. Call [facility] ([phone]) or report to the closest Emergency Room. Call 911 if necessary. 09/19/15 1756 <Electronically signed by Johnnie Baez MD> Date __ Johnnie Baez MD Cosigner Signature (If Indicated): Date CC: Maggie Tracey 19-Sep-2015 Emergency Department Summary Result: Comments: See Note; NOTES: [facility] Medical Records Department [address] [place] [address] Emergency Department Summary MR#: [id number] Acct: [id number] Name: MARICRUZ GRIGSBY Rep #: [id number] : 1940 75 From: Johnnie Baez MD [...] tachycardia at 112. No acute signs of NV or ischemia. White count 11.4, H and [...] will be discharged with prescription for Zofran. Johnnie Baez MD C C: Maggie Tracey DO T: [facility] JOB: [id number] 09/19/15 1755 <Electronically signed by Johnnie Baez MD& amp;#62; Date Johnnie Baez MD Cosigner Signature (If Indicated): Date CC: Maggie Tracey DO Date Dictated: 09/19/15 1019 Date Transcribed: 09/19/15 1019 [employer] Salesperson: Signed 07-Sep-2015 Chest PA and Lateral Result: Comments: See Note; NOTES: [facility] Imaging Services [address] [place] [address] Verna 4d Chest PA and Lateral MR#: [id number] Acct: [id number] Name: EAN CRUZMARICRUZ Stuart Rep #: [id number] : 1940 F 75 From: Kali Raymundo MD PCP: Maggie Tracey DO Status: REG CLI Study: Chest PA and Lateral Date of Exam: 09/07/15 Exam# [id number] Ordering Dr: Maggie Irwin DO STUDY: X-RAY [...] FACR at 11:41 EST , Service support [phone], RAD/Chest PA and Lateral IMPRESSION: No significant changes. Stable moderate cardiomegaly. Bilateral interstitial changes more prominent on the right. Savannahi marcus Signed: Kali Raymundo MD, FACR at 11:41 EST , Service support [phone], CC: Maggie Tracey DO [employer] Salesperson: Signed 07-Sep-2015 Spirometry (08564) Comments: good effort and curve normal Result: 24-Mar-2015 PT Discharge Summary Result: Comments: See Note; NOTES: [facility] Physical Therapy [facility]. [address] [place] [address] Fax REHABILITATION SERVICES DISCHARGE SUMMARY MR#: [id number] Acct: [id number] Name: MARICRUZ GRIGSBY Rep #: [id number] : 1940 75 From: Yuni Clark Referring DrDonnie: Maggie Tracey DO Status: DIS RCR Eval [...] or sacral regions. Oswestry equals 0%, G8979 , G8980 . I am discharging her at this time and she is agreeable to discharge. Yuni Clark, PT T: NTS JOB: [id number] <Electronically signed by Yuni Clark > 03/24/15 1227 CC: Maggie Tracey DO Signed 17-Feb-2015 Inital Evaluation - PT Result: Comments: See Note; NOTES: [facility] Physical Therapy [facility] [address] [facility]. [address] [place] [address] Fax REHABILITATION SERVICES INITIAL EVALUATION MR#: [id number] Acct: [id number] Name: MARICRUZ GRIGSBY Rep #: [id number] : 1940 75 From: Yuni Clark Referring DrDonnie: Maggie Tracey DO Status: REG RCR Insurance : MEDICARE PART A B Eval Date: [facility] DATE OF SERVICE: 02/16/2015 SUBJECTIVE: This [...] care. Yuni Clark, PT T: NTS JOB: [id number] <Electronically signed by Yuni Clark > 02/17/15 1011 CC: Signed For Medicare only, by seng yao this I certify the plan of care. Physicians Signature Date 08-Feb-2015 L/S Spine Min 4 Views Result: Comments: See Note; NOTES: [facility] Imaging Services [address] [place] [address] Radiology Report MR#: [id number] Acct: [id number] Name: MARICRUZ GRIGSBY Rep #: [id number] : 1940 F 74 From: Teo Wayne MD PCP: Maggie Tracey DO Status: REG CLI Study: L/S Spine Min 4 Views Date of Exam: 02/08/15 Exam# [id number] Ordering Dr: Maggie Tracey DO STUDY: X-RAY [...] Wayne MD a t 12:30 EDT Tel [phone], Service support [phone], RAD/L/S Spine Min 4 Views IMPRESSION: Degenerative changes of the spine, as detailed above. Electro nically Signed: Teo Wayne MD at 12:30 EDT Tel [phone], Service support [phone], CC: Maggie Tracey DO [employer] Salesperson: Signed 15-Nov-2014 Thyroid Result: Comments: See Note; NOTES: [facility] Imaging Services [address] [place] [address] Ultrasound Report MR#: [id number] Acct: [id number] Name: MARICRUZ GRIGSBY Stuart Rep #: [id number] : 1940 F 74 From: Julián Trivedi DO PCP: Maggie Tracey DO Status: REG CLI Study: Thyroid Date of Exam: 11/15/14 Exam# [id number] Ordering Dr: Maggie Tracey DO STUDY: THYROID [...] Julián Trivedi DO at 16:51 EDT Tel [phone], Service support [phone], Fax CC: Maggie Tracey DO [employer] Salesperson: Signed 13-Sep-2014 Chest PA and Lateral Result: Comments: See Note; NOTES: [facility] Imaging Services [address] [place] [address] Radiology Report MR#: [id number] Acct: [id number] Name: MARICRUZ GRIGSBY Rep #: [id number] : 1940 F 74 From: Donato Abdi MD PCP: Maggie Tracey DO Status: REG CLI Study: Chest PA and Lateral Date of Exam: 09/13/14 Exam# [id number] Ordering Dr: Maggie Tracey DO STUDY: X [...] at 12:01 EST Tel , Service support [phone], CC: Maggie Tracey DO [employer] Salesperson: Signed 15-Jul-2014 Chest PA and Lateral Result: Comments: See Note; NOTES: [facility] Imaging Services [address] [place] [address] Radiology Report MR#: [id number] Acct: [id number] Name: MARICRUZ GRIGSBY Rep #: [id number] : 1940 F 74 From: Teo Wayne MD PCP: Maggie Tracey DO Status: REG CLI Study: Chest PA and Lateral Date of Exam: 07/15/14 Exam# [id number] Ordering Dr: Maggie Tracey DO SANDI DY: [...] Teo Wayne MD at 9:42 EST Tel [phone], Service support [phone], CC: Maggie Tracey DO [employer] Salesperson: Signed 10-May-2014 Bilat Scrn Digital & CAD Result: Comments: See Note; NOTES: [facility] Imaging Services [address] [place] [address] Breast Imaging Report MR#: [id number] Acct: [id number] Name: MARICRUZ GRIGSBY ep #: [id number] : 1940 F 74 From: Gene Phillips PCP: Maggie Tracey DO Status: REG CLI Exam# [id number] Ordering Dr: Maggie Tracey DO MAMMOGRAPHY - [...] these results will be sent to the city emergency hospital ient by the facility within 30 days. Approximately 10% of breast cancers are not detected by mammography. A normal mammogram should not delay biopsy of a clinically suspicious abnormality. Electro nically Signed: Jessenia Phillips MD at 19:48 EDT Tel , Service support [phone], CC: Maggie Tracey DO [employer] Salesperson: Signed 10-Sep-2013 Dexa Bone Density Study (HP) Result: Comments: See Note; NOTES: [facility] Imaging Services [address] [place] [address] Bone Density Report MR#: [id number] Acct: [id number] Name: MARICRUZ GRIGSBY Rep #: [id number] : 1940 F 73 From: Teo Wayne MD PCP: Maggie Tracey DO Status: REG CLI Study: Dexa Bone Density Study (HP) Date of Exam: 09/10/13 Exam# [id number] Ordering Dr: Maggie Tracey DO STUDY: DUAL [...] M.D. at 11:04 EST , Service support [phone], CC: Maggie Tracey DO [employer] Salesperson: Signed Immunization Name Dates Details Influenza (3 years and up) on: 04-Jun-2007 Comments: Lot #: [id number] date: 01/03Amount given: 0.5 MLRoute: IMSite given: Left deltoidGiven by: Nathaniel Beal LPN Influenza (3 years and up) on: 12-May-2009 Comments: Lot #[id number]-left deltoidgiven by:CDH Family History Unknown Family Member Name Dates Details Cancer Status: Active Diabetes Mellitus Status: Active Father Comments: NV, hypercholesterolemia Status: Active First Degree Relatives Comments: [...] smoker Vital Signs Date Test Result Details 03-Rxt-624235:08 Pulse 76 /min Comments: Pattern: Regular Respiration Rate 18 /min Comments: Pattern: Unlabored O2 SAT 97 % Comments: Room air BP Systolic 132 mm[Hg] Comments: Patient Position: Sitting; Cuff Location: Left Arm; Cuff Size: Large BP Diastolic 78 mm[Hg] Comments: Patient Position: Sitting; Cuff Location: Left Arm; Cuff Size: Large Weight 208.5 lb Height 65 in Body Mass Index Calculated 34.7 kg/m2 Body Surface Area Calculated 2.01 m2 32-Zad-139929:46 Temperature 97.8 f Comments: Method: Temporal Pulse [...] kg/m2 Body Surface Area Calculated 2.01 m2 54-Ftd-728342:03 Temperature 98.5 f Comments: Method: Temporal Pulse [...] kg/m2 Body Surface Area Calculated 2.01 m2 55-Puh-365440:05 Pulse 74 /min Comments: Pattern: Regular Respiration [...] kg/m2 Body Surface Area Calculated 2.01 m2 49-Nqx-892405:19 Temperature 97.3 f Comments: Method: Temporal Pulse [...] kg/m2 Body Surface Area Calculated 2.06 m2 :15 Pulse 81 /min Comments: Pattern: Regular Respiration [...] kg/m2 Body Surface Area Calculated 2.06 m2 :32 Temperature 97.6 f Comments: Method: Temporal Pulse [...] kg/m2 Body Surface Area Calculated 2.06 m2 02-Aug-20178:54 Pulse 76 /min Comments: Pattern: Regular Respiration [...] kg/m2 Body Surface Area Calculated 2.06 m2 6-Dds-578534:26 Comments: orthostatic bp assessment: 12:10pmlying- 170/90 76hrsitting- [...] kg/m2 Body Surface Area Calculated 2.06 m2 19-Ztx-645553:29 Comments: Dr. Reyes and had a glauocma [...] administered 81mg asa orally at this time also-[facility] BP Systolic 156 mm[Hg] Comments: Patient Position: [...] Calculated 2.01 m2 Head Circumference 0.00 cm :03 Temperature 97.8 f Comments: Method: Oral Pulse [...] Value Details :50 Rapid Strep Test, Office (61752) Rapid Strep Test, Office Negative (Normal) :58 TSH (10021) Comments: PATIENT NOT FASTINGPERFORMED BY: [facility] Sxoiuq0684 [facility] [id number] TSH 5.590 {uIU/mL} (Abnormal) Range: 0.450-4.500 :58 T4, FREE (THYROXINE) (52123) Comments: PATIENT NOT FASTINGPERFORMED BY: [facility] HealthCareTbvgxc5045 [facility] [id number] T4,Free(Direct) 1.81 ng/dL (Abnormal) Range: 0.82-1.77 3-Ngq-983918:58 T3, FREE (TRIDOTHYRONINE) (83072) Comments: PATIENT NOT FASTINGPERFORMED BY: [facility] HealthCareZtuskb[address] [place] [address] [id number] Triiodothyronine (T3), Free 2.1 pg/mL (Normal) Range: [...] Muscle ABS Comments: Comments: ANTI-LIVER/KIDNEY MICRO AB [id number] [facility] (refer to report for specific site)refer [...] number MELI-DIRECT Negative (Normal) Comments: Performed at: [facility] LabCo[address] [id number] Director: Constantine Christianson PhD, Phone: [phone] :44 Ceruloplasmin Comments: Comments: ANTI-LIVER/KIDNEY MICRO AB [id number] [facility] (refer to report for specific site)refer to report for address and phone number CERULOPLAS 1560 22.0 mg/dL (Normal) Range: 19.0-39.0 :44 CMV Acute Antibody IgM Comments: Comments: ANTI-LIVER/KIDNEY MICRO AB [id number] [facility] (refer to report for specific site)refer to report for address and phone number CMVIgM AB < 30.0 AU/mL (Normal) Range: 0.0-29.9 Comments: Negative <30.0 Equivocal 30.0 - 34.9 Positive >34.9A positive result is generally indicative of acuteinfection, reactivation or persistent IgM production. :44 Ferritin Comments: Comments: ANTI-LIVER/KIDNEY MICRO AB [id number] SER/[facility] [address] [place], [place], [id number] FERRITIN 236 ng/mL (Normal) Range: 8-252 :44 Free T3 Comments: Comments: ANTI-LIVER/KIDNEY MICRO AB [id number] [facility] [address] [place], [place], [address] FREE T3 1.6 pg/mL (Abnormal) Range: 2.18-3.98 :44 GGTP 64 U/L (Abnormal) Comments: Comments: ANTI-LIVER/KIDNEY MICRO AB [id number] [facility] [address] [place], [place], [address] Range: 5-55 :44 Hepatitis Panel Acute Comments: Comments: ANTI-LIVER/KIDNEY MICRO AB [id number] [facility] (refer to report for specific site)refer to report for address and phone number HEP C AB <0.1 {s/co_ratio} (Normal) Range: 0.0-0.9 Comments: Negative: < 0.8 Indeterminate: 0.8 - 0.9 Positive: > 0.9 The CDC recommends that a positive HCV antibody result be followed up with a HCV Nucleic Acid Amplification test (779274). HB CORE [id number] Negative (Normal) HB SURF AG Negative (Normal) HEP A IgM 6734 Negative (Normal) :44 Liver Profile Comments: Comments: ANTI-LIVER/KIDNEY MICRO AB [id number] SER/[facility] [address] [place], [place], [id number] D BILI 0.17 mg/dL (Normal) Range: 0.00-0.30 T BILI 0.60 mg/dL (Normal) Range: 0.20-1.00 ALT 48 U/L (Normal) Range: 13-56 ALK P 93 U/L (Normal) Range: 45-117 AST 43 U/L (Abnormal) Range: 15-37 GLOB 3.5 g/dL (Normal) Range: 2.2-4.2 ALB 3.7 g/dL (Normal) Range: 3.2-5.0 T PROT 7.2 g/dL (Normal) Range: 6.4-8.2 :44 Miscellaneous Lab Procedure Comments: Comments: ANTI-LIVER/KIDNEY MICRO AB [id number] SER/RFTest(s) Ordered: ANTI-LIVER/KIDNEY MICROS AB [id number] SER/[facility] [address] [place], [place], [id number] [facility] Comments: TEST RESULT UNITS REF INTERVALLiver- Kidney Microsomal Ab <1.0 Units 0.0 - 20.0 Negative 0.0 - 20.0 LAB (Normal) Equivocal 20.1 - 24.9 Positive >24.9LKM type 1 antibodies are detected in patients withautoimmune hepatitis type 2 and in up to 8% ofpatients wi TEST th chronic HCV infection. TESTING PERFORMED AT [facility]. ORIGINAL REPORT ON FILE IN LAB CONTAINS ADDITIONAL TEST SITE INFORMATION. :44 T4 Free Direct Comments: Comments: ANTI-LIVER/KIDNEY MICRO AB [id number] SER/[facility] [address], [place], [address] T4 FREE DIRECT 1.06 ng/dL (Normal) Range: 0.76-1.46 83-Ybk-30621:44 Thyroid Stim Hormone (TSH) Comments: Comments: ANTI-LIVER/KIDNEY MICRO AB [id number] [facility] [address] [place], [address] TSH 16.40 {uIU/mL} (Abnormal) Range: 0.358-3.74 43-Tns-45755:44 Transferrin Comments: Comments: ANTI-LIVER/KIDNEY MICRO AB [id number] [facility] (refer to report for specific site)refer to report for address and phone number TRANSFERRN 5344 250 mg/dL (Normal) Range: 200-370 Comments: Performed at: [facility] [address] [id number] Director: Constantine Christianson PhD, Phone: [phone] 00-Akq-033143:16 Bedside Glucose Comments: [facility] [address] [place] [address] BEDSIDE GLU 152 mg/dL (Abnormal) Range: 70-110 Comments: MANAGEMENT OF PATIENT CARE PER NURSING PROTOCOL 94-Rqu-794836:45 Basic Metabolic Profile (BMP) Comments: [facility] Wz[address]wwd0937 [facility] [place], [address] GAP 8 (Normal) Range: 5-15 CO2 28.0 [...] A.D.A. criteria.Please note revised GLUCOSE reference range uxuoqgnjh22/02/2018. 22-Xlt-834196:45 CBC W/Diff, Automated Comments: [facility] [address] [place], [address] Absolute Lymph 1.73 {X10_3/ul} (Normal) Range: 0.83-4.51 [...] 4.2-5.4 WBC 9.5 K/mm3 (Normal) Range: 4.4-11.0 :45 Partial Thromboplast Time Comments: [facility] [address] [place], [address] PTT 33.0 s (Normal) Range: 24.1-36.2 :45 Prothrombin Time w/INR Comments: [facility] [address] [place], [id number] INR 0.9 (Normal) PROTIME 12.5 s (Normal) Range: 11.7-14.9 :45 Troponin-I Comments: [facility] [address] [place], [address] TROPONIN-I < 0.015 ng/mL Comments: TROPONIN-I EXPECTED VALUES <0.045 Negative 0.045 - 0.590 Consistent with Cardiac Damage > OR = 0.600 Critical Value Not every elevated troponin is indicative of NV. T (Normal) hesevalues should be used with clinical judgement in examiningthe patient's clinical picture for diagnosis. To establisha diagnosis of NV versus myocardial injury, there must be ademonstrated rise and/ or fall in the troponin values, inaddition to ischemic symptoms, EKG changes, new regionalwall motion abnormality, and/or angiographical evidence. PLEASE NOTE: REFERENCE RANGES EDITED 17 Liver-Kidney <1.0 {Units} Comments: PATIENT NOT FASTINGPERFORMED BY: [employer]70 [facility] [id number] 2:14 Microsomal Ab (Normal) Range: 0.0-20.0 Comments: Negative 0.0 - 20.0 Equivocal 20.1 - 24.9 Positive >24.9 . LKM type 1 antibodies are detected in patients with autoimmune hepatitis type 2 and in up to 8% of patients with chronic HCV infection. 84-Vkg-653762:14 HEPATIC FUNCTION PANEL Comments: PATIENT NOT FASTINGPERFORMED BY: [facility] [id number] (95688) ALT (SGPT) 49 [iU]/L (Abnormal) Range: 0-32 AST (SGOT) 57 [iU]/L (Abnormal) Range: 0-40 Alkaline Phosphatase 100 [iU]/L (Normal) Range: 39-117 Bilirubin, Direct 0.14 mg/dL (Normal) Range: 0.00-0.40 Bilirubin, Total 0.4 mg/dL (Normal) Range: 0.0-1.2 Albumin 4.1 g/dL (Normal) Range: 3.5-4.8 Protein, Total 6.8 g/dL (Normal) Range: 6.0-8.5 38-Coz-041783:14 HEPATITIS PANEL (38184) Comments: PATIENT NOT FASTINGPERFORMED BY: [facility]CycleR[facility] Behavior[facility] HealthCareKjpapj4703 [facility] [id number] Hep C Virus Ab <0.1 {s/co_ratio} (Normal) Range: 0.0-0.9 Comments: Negative: < 0.8 Indeterminate: 0.8 - 0.9 Positive: > 0.9 . The CDC recommends that a positive HCV antibody result be followed up with a HCV Nucleic Acid Amplification test (614678). Hep B Core Ab, IgM Negative (Normal) HBsAg Screen Negative (Normal) Hep A Ab, IgM Negative (Normal) 25-Kcb-346771:14 ANTIMITOCHONDRIAL ANTIBODY Comments: PATIENT NOT FASTINGPERFORMED BY: [facility]CycleR[facility] Behavior[facility] HealthCareNqndwr6012 [facility] [id number] (54132) Mitochondrial (M2) Antibody <20.0 {Units} (Normal) Range: 0.0-20.0 Comments: Negative 0.0 - 20.0 Equivocal 20.1 - 24.9 Positive >24.9 . Mitochondrial (M2) Antibodies are found in 90-96% of patients with primary biliary cirrhosis. 05-Tes-092731:14 TRANSFERRIN (59150) Comments: PATIENT NOT FASTINGPERFORMED BY: [facility]6370 [facility] [id number] Transferrin 226 mg/dL (Normal) Range: 200-370 06-Lng-642138:14 GGT (GAMMA GLUTAMYLTRANSFERASE) Comments: PATIENT NOT FASTINGPERFORMED BY: [facility]6370 [facility] [id number] (01619) GGT 59 [iU]/L (Normal) Range: 0-60 60-Hpo-733770:14 FERRITIN (19424) Comments: PATIENT NOT FASTINGPERFORMED BY: [facility] CommunicationsMer[facility] St[facility] Ksyjah6819 [facility] [id number] Ferritin, Serum 545 ng/mL (Abnormal) Range: 15-150 47-Rnz-997295:14 CMV IGM ANTBDY (45114) Comments: PATIENT NOT FASTINGPERFORMED BY: [facility]6370 [facility] [id number] Cytomegalovirus (CMV) Ab, IgM <30.0 AU/mL (Normal) Range: 0.0-29.9 Comments: Negative <30.0 Equivocal 30.0 - 34.9 Positive >34.9 A positive result is generally indicative of acute infection, reactivation or persistent IgM production. 37-Ugu-658498:14 CERULOPLASMIN (80222) Comments: PATIENT NOT FASTINGPERFORMED BY: [facility]6370 [facility] [id number] Ceruloplasmin 26.3 mg/dL (Normal) Range: 19.0-39.0 54-Eay-723463:14 ASM (ANTI SMOOTH MUSCLE Comments: PATIENT NOT FASTINGPERFORMED BY: [facility]6370 [facility] [id number] ANTIBODY) (69616) Actin (Smooth Muscle) Antibody 5 {Units} (Normal) Range: 0-19 Comments: Negative 0 - 19 Weak positive 20 - 30 Moderate to strong positive >30 . Actin Antibodies are found in 52-85% of patients with autoimmune hepatitis or chronic active hepatitis and in 22% of patients with primary biliary cirrhosis. 16-Nlw-484422:14 MELI (ANTINUCLEAR ANTIBODY) Comments: PATIENT NOT FASTINGPERFORMED BY: [facility] Opawcv5376 [facility] [id number] (38993) MELI Direct Negative (Normal) 37-Bkt-954263:33 HgA1C , Office (78770) HgA1C , Office 7.2 % (Abnormal) Range: 4.6 - 7.1 38-Fvt-989938:38 MELI (ANTINUCLEAR ANTIBODY) Comments: PATIENT NOT FASTINGPERFORMED BY: [facility] Ygxnyp8073 [facility] [id number] (04325) MELI Direct Negative (Normal) 72-Gtj-953148:38 VITAMIN B-12 (CYANOCOBALAMIN) Comments: PATIENT NOT FASTINGPERFORMED BY: CORTEZ Griffin Tegkba0244 [facility] [id number] (65063) Vitamin B12 463 pg/mL (Normal) Range: 232-1245 26-Rio-403178:38 TSH (77584) Comments: PATIENT NOT FASTINGPERFORMED BY: [facility] Avxbxr7123 [facility] [id number] TSH 0.062 {uIU/mL} (Abnormal) Range: 0.450-4.500 10-Rth-234780:38 SED RATE ERYTHROCYTE (12666) Comments: PATIENT NOT FASTINGPERFORMED BY: CORTEZ GalindoMer[facility] Hospital St[facility] Lolibu0460 [facility] [id number] Sedimentation Rate-Westergren 7 mm/h (Normal) Range: 0-40 77-Fcj-613702:38 METABOLIC PANEL, COMPREHENSIVE Comments: PATIENT NOT FASTINGPERFORMED BY: CORTEZ [facility] CommunicationsMer[facility] St[facility] Jaesgc8304 [facility] [id number] (55748) ALT (SGPT) 52 [iU]/L (Abnormal) Range: 0-32 [...] 8-27 Glucose 134 mg/dL (Abnormal) Range: 65-99 38-Abx-592865:38 C-REACTIVE PROTEIN (34064) Comments: PATIENT NOT FASTINGPERFORMED BY: [facility] [id number] C-Reactive Protein, Quant 4.8 mg/L (Normal) Range: 0.0-4.9 55-Qih-141492:38 CBC (AUTO) (51461) Comments: PATIENT NOT FASTINGPERFORMED BY: [place]CycleKathryn [place] 7991270 [facility] [id number] Platelets 248 {x10E3/uL} Range: 150-379 (Normal) RDW [...] mg/L (Abnormal) Comments: PATIENT NOT FASTINGPERFORMED BY: Diamond CommunicationsJohn [place] 9785570 [facility] [id number] BY: [address] [id number] 2:25 Serum Range: 0.6-2.4 Comments: Siemens Immulite 2000 Immunochemiluminometric assay (ICMA) 8-Pmb-137001:25 Immunoglobulins Comments: PATIENT NOT FASTINGPERFORMED BY: [place]ycleK[place] 7991270 [facility] [id number] BY: [address] [id number] Iga/Ige/Igg/Igm (GAME) (36750) Immunoglobulin E, Total 259 {IU/mL} (Abnormal) Range: 0-100 Immunoglobulin M, Qn, Serum 113 mg/dL (Normal) Range: 26-217 Immunoglobulin A, Qn, Serum 130 mg/dL (Normal) Range: 64-422 Immunoglobulin G, Qn, Serum 837 mg/dL (Normal) Range: 700-1600 4-Rzq-239515:25 LDH (LD) (LACTATE Comments: PATIENT NOT FASTINGPERFORMED BY: [facility] HospitalVerivo Software[address] [id number] BY: [address] [id number] DEHYDROGENASE) (17121) LDH 195 [iU]/L (Normal) Range: 119-226 9-Cfk-765917:25 METABOLIC PANEL, Comments: PATIENT NOT FASTINGPERFORMED BY: [facility] [facility] HospitalVerivo Software[address] [id number] BY: [address] [id number] COMPREHENSIVE (13368) ALT (SGPT) 47 [iU]/L (Abnormal) Range: 0-32 [...] 8-27 Glucose 139 mg/dL (Abnormal) Range: 65-99 2-Xvd-811500:25 CBC, PLATELETS & AUT DIFF Comments: PATIENT NOT FASTINGPERFORMED BY: CB [facility] Trvjdm5498 [facility] [id number] BY: BN [facility] Attefyzunw8356 [facility] [id number] (81616) Immature Grans (Abs) 0.0 {x10E3/uL} (Normal) Range: [...] 3.77-5.28 WBC 7.2 {x10E3/uL} (Normal) Range: 3.4-10.8 69-Plp-737910:28 Microscopic Examination Comments: PATIENT NOT FASTINGPERFORMED BY: [employer] Numerous [facility] [id number] Bacteria None seen (Normal) Mucus Threads Present (Normal) Cast Type Hyaline casts (Normal) Casts Present {/lpf} (Abnormal) Epithelial Cells (non renal) 0-10 {/hpf} (Normal) Range: 0 - 10 RBC 0-2 {/hpf} (Normal) Range: 0 - 2 WBC >30 {/hpf} (Abnormal) Range: 0 - 5 57-Ugj-984504:24 URINE RANI CULTURE-RADHA COL Comments: PATIENT NOT FASTINGPERFORMED BY: [employer] Zfwhpt8709 [facility] [id number] Information: SRC:UC COUNT (52023) Antimicrobial MIHEAD (Normal) Comments: S = Susceptible; I = Intermediate; R = Resistant P = Positive; N = Negative MICS are expressed in micrograms per mL Antibiotic RSLT#1 RSLT#2 RS Susceptibility LT#3 RSLT#4Amoxicillin/Clavulanic Acid SAmpicillin RCefepime SCeftriaxone SCefuroxime SCephalothin SCiprofloxacin SGentamicin SImipenem SNitrofurantoin SPiperacillin RTetracycline STobram ycin STrimethoprim/Sulfa S Result 1 Raoultella Comments: 5,000 Colonies/mL planticola (Abnormal) Urine Final report Culture,Comprehensive (Abnormal) 17-Vjl-174307:28 MICROALBUMIN: CREATININE RATIO Comments: PATIENT NOT FASTINGPERFORMED BY: ClearCycleRutgers - University Behavioral HealthCareZrlija7902 [facility] [id number] (55129) AND (68323) Alb/Creat Ratio 215.8 {mg/g_creat} (Abnormal) Range: 0.0-30.0 Albumin, Urine 245.4 ug/mL (Normal) Creatinine, Urine 113.7 mg/dL (Normal) 04-Tid-021631:28 URINALYSIS, W/ MICRO (06999) Comments: PATIENT NOT FASTINGPERFORMED BY: Diamond CommunicationsPromedica [facility]6370 [facility] [id number] Microscopic Examination See below: (Normal) Comments: Microscopic was indicated and was performed. Nitrite, Urine Negative (Normal) Urobilinogen,Semi-Qn 0.2 mg/dL (Normal) Range: 0.2-1.0 Bilirubin Negative (Normal) Occult Blood Negative (Normal) Ketones Negative (Normal) Glucose Trace (Abnormal) Protein 1+ (Abnormal) WBC Esterase 1+ (Abnormal) Appearance Clear (Normal) Urine-Color Yellow (Normal) pH 5.5 (Normal) Range: 5.0-7.5 Specific [place] 1.025 (Normal) Range: 1.005-1.030 08-Usq-971137:28 METABOLIC PANEL, COMPREHENSIVE Comments: PATIENT NOT FASTINGPERFORMED BY: Diamond CommunicationsPromed[facility]6370 [facility] [id number] (34682) ALT (SGPT) 37 [iU]/L (Abnormal) Range: 0-32 [...] Glucose, Serum 179 mg/dL (Abnormal) Range: 65-99 18-Dox-194976:28 CBC, PLATELETS & AUT DIFF Comments: PATIENT NOT FASTINGPERFORMED BY: [facility] Hfuylv3422 [facility] [id number] (06914) Immature Grans (Abs) 0.0 {x10E3/uL} (Normal) Range: [...] 3.77-5.28 WBC 9.3 {x10E3/uL} (Normal) Range: 3.4-10.8 52-Qqf-618838:28 TSH (THYROID STIMULATING Comments: PATIENT NOT FASTINGPERFORMED BY: [facility]6370 [facility] [id number] HORMONE) (82293) TSH 23.220 {uIU/mL} (Abnormal) Range: 0.450-4.500 49-Pdj-543905:28 LIPID PANEL (37363) Comments: PATIENT NOT FASTINGPERFORMED BY: [facility]6370 [facility] [id number] LDL/HDL Ratio 1.7 {ratio_units} (Normal) Range: 0.0-3.2 Comments: LDL/HDL Ratio Men Women 1/2 Avg.Risk 1.0 1.5 Av g.Risk 3.6 3.2 2X Avg.Risk 6.2 5.0 3X Avg.Risk 8.0 6.1 LDL Cholesterol Calc 83 mg/dL (Normal) Range: 0-99 VLDL Cholesterol Priscilla 42 mg/dL (Abnormal) Range: 5-40 HDL Cholesterol 48 mg/dL (Normal) Triglycerides 208 mg/dL (Abnormal) Range: 0-149 Cholesterol, Total 173 mg/dL (Normal) Range: 100-199 22-Mnj-532770:28 CALCIFEDIOL (75169) Comments: PATIENT NOT FASTINGPERFORMED BY: [facility]6370 [facility] [id number] Vitamin D, 25-Hydroxy 25.4 ng/mL (Abnormal) Range: 30.0-100.0 Comments: Vitamin D deficiency has been defined by the [place] ofMedicine and an Endocrine Society practice guideline as alevel of serum 25-OH vitamin D less than 20 ng/mL (1,2).The Endocrine Society went on to further define vitamin Dinsufficiency as a level between 21 and 29 ng/mL (2).1. IOM ([place] of Medicine). 2010. Dietary reference intakes for calcium and D. [place]: The National Academies Press.2. Rachel CAMACHO, Yael MARLEY, Dunia HERRERA, et al. Evaluation, treatment, and prevention of vitamin D deficiency: an Endocrine Society clinical practice guideline. JCEM. 2010; 96(7):1911-30. 01-Xyb-623744:40 Basic Metabolic Profile (BMP) Comments: 'TROP' Serial specimen #1, #2, #3, or #4: [facility] Avbwazbrms[address] [place] [place], [address] GAP 11 (Normal) Range: 5-15 CO2 24.0 [...] 126 mg/dLsuggests DIABETES MELLITUS per A.D.A. criteria. 67-Qeu-909538:40 BNP,B-Type NATRIURETIC PEPTIDE Comments: [facility] [address] [place], [place], [address] B-TYPE SANJU PEP 13.3 pg/mL (Normal) Range: 0-100 30-Zzy-863310:40 CBC W/Diff, Automated Comments: [facility] [address]utdtg[address] [place], [address] Absolute Lymph 1.65 {X10_3/ul} (Normal) Range: 0.83-4.51 [...] 4.2-5.4 WBC 4.1 K/mm3 (Abnormal) Range: 4.4-11.0 70-Wut-356956:40 Troponin-I Comments: 'TROP' Serial specimen #1, #2, #3, or #4: [address] [place] [address] Qhdcdmidyb8406 [place], [address] TROPONIN-I < 0.02 ng/mL (Normal) Comments: TROPONIN-I EXPECTED VALUES <0.05 NEGATIVE 0.06 - 0.59 AT RISK OF NV > OR = 0.60 SUGGEST NV 30-Mbr-986961:08 Microscopic Examination Comments: PATIENT WAS FASTINGPERFORMED BY: [facility] Kzkrpt7278 [facility] [id number] Bacteria Few (Normal) Mucus Threads Present (Normal) Cast Type Hyaline casts (Normal) Casts Present {/lpf} (Abnormal) Epithelial Cells (non renal) 0-10 {/hpf} (Normal) Range: 0 - 10 RBC 0-2 {/hpf} (Normal) Range: 0 - 2 WBC 11-30 {/hpf} (Abnormal) Range: 0 - 5 29-Xnn-030205:08 CALCIFIDIOL (74463) VIT D 25 Comments: PATIENT WAS FASTINGPERFORMED BY: Diamond CommunicationsProm[facility]6370 [facility] [id number] Vitamin D, 25-Hydroxy 33.5 ng/mL (Normal) Range: 30.0-100.0 Comments: Vitamin D deficiency has been defined by the [place] ofPrem[facility]cine and an Endocrine Society practice guideline as alevel of serum 25-OH vitamin D less than 20 ng/mL (1,2).The Endocrine Society went on to further define vitamin Dinsufficiency as a level between 21 and 29 ng/mL (2).1. IOM ([place] of Medicine). 2010. Dietary reference intakes for calcium and D. [place]: The National AcademPro V[employer]V Press.2. Rachel MF, Yael MARLEY, Dunia HERRERA, et al. Evaluation, treatment, and prevention of vitamin D deficiency: an Endocrine Society clinical practice guideline. JCEM. 2010; 96(7):1911-30. 41-Shf-330599:08 TSH (22713) Comments: PATIENT WAS FASTINGPERFORMED BY: ClearCycleRutgers - University Behavioral HealthCareYtcrec4518 [facility] [id number] TSH 3.700 {uIU/mL} (Normal) Range: 0.450-4.500 84-Hgx-313690:08 LIPID PANEL (79358) Comments: PATIENT WAS FASTINGPERFORMED BY: LabPromedica [facility]6370 [facility] [id number] LDL/HDL Ratio 1.8 {ratio_units} (Normal) Range: 0.0-3.2 Comments: LDL/HDL Ratio Men Women 1/2 Avg.Risk 1.0 1.5 Av g.Risk 3.6 3.2 2X Avg.Risk 6.2 5.0 3X Avg.Risk 8.0 6.1 LDL Cholesterol Calc 84 mg/dL (Normal) Range: 0-99 VLDL Cholesterol Priscilla 49 mg/dL (Abnormal) Range: 5-40 HDL Cholesterol 46 mg/dL (Normal) Triglycerides 243 mg/dL (Abnormal) Range: 0-149 Cholesterol, Total 179 mg/dL (Normal) Range: 100-199 15-Rub-041279:08 URINALYSIS, W/ MICRO (23848) Comments: PATIENT WAS FASTINGPERFORMED BY: [employer] Numerous [facility] [id number] Microscopic Examination See below: (Normal) Comments: Microscopic was indicated and was performed. Nitrite, Urine Negative (Normal) Urobilinogen,Semi-Qn 0.2 mg/dL (Normal) Range: 0.2-1.0 Bilirubin Negative (Normal) Occult Blood Negative (Normal) Ketones Negative (Normal) Glucose Negative (Normal) Protein 2+ (Abnormal) WBC Esterase 1+ (Abnormal) Appearance Clear (Normal) Urine-Color Yellow (Normal) pH 5.5 (Normal) Range: 5.0-7.5 Specific [place] >=1.030 (Abnormal) Range: 1.005-1.030 35-Whf-150626:08 MICROALBUMIN: CREATININE RATIO Comments: PATIENT WAS FASTINGPERFORMED BY: [employer] Ccxnrh9103 [facility] [id number] (10441) AND (74726) Microalb/Creat Ratio 246.3 {mg/g_creat} (Abnormal) Range: 0.0-30.0 Microalbumin, Urine 433.7 ug/mL (Normal) Comments: Results confirmed ondilution. Creatinine, Urine 176.1 mg/dL (Normal) 66-Tbh-039547:08 METABOLIC PANEL, COMPREHENSIVE Comments: PATIENT WAS FASTINGPERFORMED BY: ClearCycleRutgers - University Behavioral HealthCareEcltvb1370 [facility] [id number] (11741) ALT (SGPT) 26 [iU]/L (Normal) Range: 0-32 [...] Glucose, Serum 158 mg/dL (Abnormal) Range: 65-99 13-Ptw-370492:08 CBC W/AUTO DIFF WBC (36703) Comments: PATIENT WAS FASTINGPERFORMED BY: LabCoRutgers - University Behavioral HealthCareDqucke4980 [facility] [id number] Immature Grans (Abs) 0.0 {x10E3/uL} (Normal) Range: [...] (Normal) Range: 3.4-10.8 :31 HgA1C , Office (40340) HgA1C , Office 6.6 % (Normal) Range: 4.6 - 7.1 :31 Blood Glucose , Office (09890) Blood Glucose , Office 143 (Normal) :45 CBC W/Diff, Automated Comments: [facility] [address] [place], [place], [address] Absolute Lymph 1.46 {X10_3/ul} (Normal) Range: 0.83-4.51 [...] 4.2-5.4 WBC 12.9 K/mm3 (Abnormal) Range: 4.4-11.0 0-Jju-167028:45 Comprehensive Metabolic Profil Comments: [facility] [address]irp[address] [place], [place], [address] GAP 8 (Normal) Range: 5-15 CO2 27.0 [...] 126 mg/dLsuggests DIABETES MELLITUS per A.D.A. criteria. 7-Dci-689774:45 Prothrombin Time w/INR Comments: [facility] [address]upa[address] [place], [place], [address] INR 0.9 (Normal) PROTIME 11.6 s (Abnormal) Range: 11.7-14.9 7-Azs-548164:12 HgA1C , Office (55840) HgA1C , Office 6.5 % (Normal) Range: 4.6 - 7.1 3-Zez-819408:12 Blood Glucose , Office (50589) Blood Glucose , Office 122 (Normal) :39 Lipid Profile Comments: [facility] [address]chr[address] [place], [place], [address] VLDL 39 mg/dL (Normal) Range: 5-40 LDL [...] report for address and phone number METHYLM [phone] nmol/L (Normal) Range: 0-378 Comments: Performed at: [address] [id number] Director: Frantz Josue MD, Phone: [phone] 27-Fnc-80630:39 Vitamin B12 531 pg/mL (Normal) Comments: [facility] [address] [place], [address] Range: 211-911 49-Nqg-29042:39 Vitamin D,25 Hydroxy Comments: [facility] Ownyncmibi9[address] [place], [address] Vitamin D 25-OH 44.7 ng/mL (Normal) Comments: Vitamin D 25(OH) Status Range Deficiency <20 ng/mL (50nmol/L) Insuffciency 20 - 30 ng/mL (50 - 75 nmol/L) Sufficiency 30 - 100 ng/mL (75 - 250 nmol/L) Toxicity >100 ng/mL (>250 nmol/L) 17-Hbd-42365:29 Bedside Glucose Comments: [facility] LaboratoryPoint of Uohc[address] [place] [address] BEDSIDE GLU 139 mg/dL (Abnormal) Range: 70-110 Comments: No Action RequiredMANAGEMENT OF PATIENT CARE PER NURSING PROTOCOL COLON BIOPSY (CHOOSE See Note (Normal) Comments: [facility] Hvbbopkxlc27[address] [place], [id number] :54 SITE) Comments: Patient: MARICRUZ GRIGSBY : 1940 (76/F) Acct Num: [id number] Phys: Constantine Saunders Unit Num: [id number] Loc: [facility] Specimen: [id number] Received: 11/05/16 - 1631 Spe c Type: COLON BX TISSUES TISSUES: [...] is totally submitted in one cassette. / RY:rg 11/06/16 TC:1 CPT: 88433 x2 HEADER OPERATION: Colonoscopy with polypectomy PRE-OP [...] Signed Zane Elliott 11/07/16 <signature on file> 43-Pba-622304:47 CBC W/Diff, Automated Comments: [facility] [address] [place], [address] Absolute Lymph 1.88 {X10_3/ul} (Normal) Range: 0.83-4.51 [...] 4.2-5.4 WBC 8.8 K/mm3 (Normal) Range: 4.4-11.0 63-Qaa-496875:42 Comprehensive Metabolic Profil Comments: Order Date: 10/10/16Order Info: 0786-1 - *CMP Complete Metabolic PanelOrder Info: 37033-6 - *IBC Iron \E AND E\ Total Iron Binding CapacityOrder Info: 2276-4 - *FerritinComments: Reason:Order Date: 10/10/16Order Info: 58640-3 - *KAPLAMBDA - [place] Lamda Light ChainsComments: Reason:[facility] [address] [place], [address] GAP 9 (Normal) Range: 5-15 CO2 28.0 [...] <126 mg/dLsuggests IMPAIRED HOMEOSTASIS per A.D.A. criteria. 32-Yte-706888:42 Ferritin Comments: Order Date: 10/10/16Order Info: 0786-1 - *CMP Complete Metabolic PanelOrder Info: 39500-0 - *IBC Iron \E AND E\ Total Iron Binding CapacityOrder Info: 2276-4 - *FerritinComments: Reason:Order Date: 10/10/16Order Info: 89194-3 - *K[place]AMBDA - [place] Lamda Light ChainsComments: Reason:[facility] [address] [place], [place], [address] FERRITIN 45 ng/mL (Normal) Range: 8-252 39-Lyg-300687:42 DEEPALI + Protein Elect, Serum Comments: Order Date: 10/10/16Order Info: 0282-1 - *IMEL DEEPALI + Prot Elec, Serum 1495Order Info: 25485-1 - *[place]DA - [place] Lamda Light ChainsOrder Date: 10/10/16Order Info: 0282-1 - *IMEL DEEPALI + Prot Elec, Serum 1495Order Info: 44965-7 - *[place]DA - [place] Lamda Light ChainsOrder Date: 10/10/16Order Info: 38898-3 - *[place]DA - [place] Lamda Light ChainsIs Patient Fasting? NComments: Reason:[facility] (refer to report for specific site)refer to report for address and phone number NOTE: Comment (Normal) Comments: Protein electrophoresis scan will follow via computer,mail, or vp research delivery. DEEPALI RESULT,S Comment (Normal) Comments: Immunofixation shows IgG monoclonal protein with lambdalight chain specificity. A/G RATIO 1.4 (Normal) Range: 0.7-1.7 GLOBULIN, TOTAL 2.8 g/dL (Normal) Range: 2.2-3.9 M-SPIKE 0.3 g/dL (Abnormal) GAMMA GLOBULIN 0.8 g/dL (Normal) Range: 0.4-1.8 BETA GLOBULIN 0.9 g/dL (Normal) Range: 0.7-1.3 RATGH-9-ZUQT 0.9 g/dL (Normal) Range: 0.4-1.0 IQMWD-5-ZGSR 0.2 g/dL (Normal) Range: 0.0-0.4 ALBUMIN 3.7 g/dL (Normal) Range: 2.9-4.4 IMMUNOGL M 100 mg/dL (Normal) Range: 26-217 IMMUNO A 106 mg/dL (Normal) Range: 64-422 IMMUNO G 693 mg/dL (Abnormal) Range: 700-1600 PROTEIN,TOTAL 6.5 g/dL (Normal) Range: 6.0-8.5 13-Bev-572222:42 Iron+Iron Binding Capacity Comments: Order Date: 10/10/16Order Info: 0786-1 - *CMP Complete Metabolic PanelOrder Info: 75764-0 - *IBC Iron \E AND E\ Total Iron Binding CapacityOrder Info: 2276-4 - *FerritinComments: Reason:Order Date: 10/10/16Order Info: 43175-0 - *K[place]LAMBDA - [place] Lamda Light ChainsComments: Reason:[facility] [address]sv[address] [place], [place], [address] IRON SATURATION 15.9 % (Normal) Range: 15.0-55.0 IRON 49 ug/dL (Abnormal) Range: 50-170 TIBC 309 ug/dL (Normal) Range: 250-450 59-Wkf-138471:42 [place] Lambda Light Chains Comments: Order Date: 10/10/16Order Info: 0282-1 - *IMEL DEEPALI + Prot Elec, Serum 1495Order Info: 35730-3 - *[place]DA - [place] Lamda Light ChainsOrder Date: 10/10/16Order Info: 0282-1 - *IMEL DEEPALI + Prot Elec, Serum 1495Order Info: 06632-0 - *[place]DA - [place] Lamda Light ChainsOrder Date: 10/10/16Order Info: 71003-7 - *[place] - [place] Lamda Light ChainsIs Patient Fasting? NComments: Reason:[facility] (refer to report for specific site)refer to report for address and phone number KAPPA/LAMBDA % 0.98 (Normal) Range: 0.26-1.65 Comments: Performed at: - [facility] [id number] Director: Constantine Christianson PhD, Phone: [phone] FR LAMBDA LT CH 19.06 mg/L (Normal) Range: 5.71-26.30 FR KAPPA LT CHN 18.62 mg/L (Normal) Range: 3.30-19.40 29-Xgj-268822:06 VITAMIN B-12 (CYANOCOBALAMIN) Comments: PATIENT NOT FASTINGPERFORMED BY: [facility] Pdkgvx5765 [facility] [id number] (88836) Vitamin B12 709 pg/mL (Normal) Range: 211-946 :45 Blood Glucose , Office (51701) Blood Glucose , Office 104 (Normal) :45 HgA1C , Office (86862) HgA1C , Office 6.7 % (Normal) Range: 4.6 - 7.1 :54 CBC W/Diff, Automated Comments: [facility] [address] [place], [place], [address] Absolute Lymph 1.51 {X10_3/ul} (Normal) Range: 0.83-4.51 [...] 4.2-5.4 WBC 7.0 K/mm3 (Normal) Range: 4.4-11.0 45-Red-25526:54 Comprehensive Metabolic Profil Comments: [facility] [address] [place], [address] GAP 8 (Normal) Range: 5-15 CO2 28.0 [...] per A.D.A. criteria. :54 Lipid Profile Comments: [facility] [address] [place], [address] VLDL 38 mg/dL (Normal) Range: 5-40 LDL [...] High Risk :54 Microalb:Creat Ratio,Random UR Comments: [facility] [address] [place], [address] MALB:CREAT 223.2 {mg/g_CRE} (Abnormal) MICROALBUMIN,UR 250.0 mg/L (Normal) UR CREAT 112.00 mg/dL (Normal) :54 Thyroid Stim Hormone (TSH) Comments: [facility] [address] [place], [address] TSH 1.13 {uIU/mL} (Normal) Range: 0.358-3.74 :54 Urinalysis, Complete Comments: How was Urine Obtained? CLEAN [facility] [address]taj[address] [place], [address] MUCUS, URINE 0 SEEN {/hpf} (Normal) [...] (Normal) CLARITY Clear (Normal) COLOR Yellow (Normal) 13-Wcc-93339:54 Vitamin D,25 Hydroxy Comments: [facility] [address]potonospp[address] [place], [place], [address] Vitamin D 25-OH 31.6 ng/mL (Normal) Comments: Vitamin D 25(OH) Status Range Deficiency <20 ng/mL (50nmol/L) Insuffciency 20 - 30 ng/mL (50 - 75 nmol/L) Sufficiency 30 - 100 ng/mL (75 - 250 nmol/L) Toxicity >100 ng/mL (>250 nmol/L) 03-Sui-372097:07 VITAMIN B-12 (CYANOCOBALAMIN) Comments: PATIENT NOT FASTINGPERFORMED BY: Servo SoftwareBreckinridge Memorial Hospital [id number] (82328) Vitamin B12 1119 pg/mL (Abnormal) Range: 211-946 50-Bqb-357492:23 Microscopic Examination Comments: PATIENT WAS FASTINGPERFORMED BY: [employer] WallerCivoAtrium Health Huntersville [id number] Bacteria Few (Normal) Mucus Threads Present (Normal) Epithelial Cells (non renal) 0-10 {/hpf} (Normal) Range: 0 - 10 RBC 0-2 {/hpf} (Normal) Range: 0 - 2 WBC >30 {/hpf} (Abnormal) Range: 0 - 5 96-Lhm-932695:23 VITAMIN B-12 (CYANOCOBALAMIN) Comments: PATIENT WAS FASTINGPERFORMED BY: EncrypTixAtrium Health Huntersville [id number] (73533) Vitamin B12 >2000 pg/mL (Abnormal) Range: 211-946 :23 TSH (12151) Comments: PATIENT WAS FASTINGPERFORMED BY: [facility]6370 [facility] [id number] TSH 5.380 {uIU/mL} (Abnormal) Range: 0.450-4.500 :23 URINALYSIS, W/ MICRO (92851) Comments: PATIENT WAS FASTINGPERFORMED BY: [facility]6370 [facility] [id number] Microscopic Examination See below: (Normal) Comments: Microscopic was indicated and was performed. Nitrite, Urine Negative (Normal) Urobilinogen,Semi-Qn 0.2 mg/dL (Normal) Range: 0.2-1.0 Bilirubin Negative (Normal) Occult Blood Negative (Normal) Ketones Negative (Normal) Glucose Negative (Normal) Protein Trace (Normal) WBC Esterase 2+ (Abnormal) Appearance Clear (Normal) Urine-Color Yellow (Normal) pH 6.0 (Normal) Range: 5.0-7.5 Specific [place] 1.022 (Normal) Range: 1.005-1.030 :23 MICROALBUMIN: CREATININE RATIO Comments: PATIENT WAS FASTINGPERFORMED BY: [facility]6370 [facility] [id number] (25482) AND (77901) Microalb/Creat Ratio 24.2 {mg/g_creat} (Normal) Range: 0.0-30.0 Microalbumin, Urine 35.4 ug/mL (Normal) Creatinine, Urine 146.0 mg/dL (Normal) :23 METABOLIC PANEL, COMPREHENSIVE Comments: PATIENT WAS FASTINGPERFORMED BY: [facility]6370 [facility] [id number] (94970) ALT (SGPT) 25 [iU]/L (Normal) Range: 0-32 [...] Glucose, Serum 143 mg/dL (Abnormal) Range: 65-99 78-Vwh-374858:23 CBC W/AUTO DIFF WBC (66531) Comments: PATIENT WAS FASTINGPERFORMED BY: LabCoRutgers - University Behavioral HealthCareKpqyqi4326 [facility] [id number] Immature Grans (Abs) 0.0 {x10E3/uL} (Normal) Range: [...] 3.77-5.28 WBC 7.4 {x10E3/uL} (Normal) Range: 3.4-10.8 92-Ycy-557976:23 CALCIFIDIOL (37279) VIT D 25 Comments: PATIENT WAS FASTINGPERFORMED BY: [facility]6370 [facility] [id number] Vitamin D, 25-Hydroxy 28.9 ng/mL (Abnormal) Range: 30.0-100.0 Comments: Vitamin D deficiency has been defined by the [place] of[place]icine and an Endocrine Society practice guideline as alevel of serum 25-OH vitamin D less than 20 ng/mL (1,2).The Endocrine Society went on to further define vitamin Dinsufficiency as a level between 21 and 29 ng/mL (2).1. IOM ([place] of Medicine). 2010. Dietary reference intakes for calcium and D. [place]: The National Academies Press.2. Rachel MF, Yael MARLEY, Dunia HERRERA, et al. Evaluation, treatment, and prevention of vitamin D deficiency: an Endocrine Society clinical practice guideline. JCEM. 2010; 96(1):1911-30. :22 HgA1C , Office (49305) HgA1C , Office 7.1 % (Normal) Range: 4.6 - 7.1 :22 Blood Glucose , Office (41373) Blood Glucose , Office 171 (Normal) :10 Basic Metabolic Profile (BMP) Comments: Serial Specimen #1, #2 or #3? 1'TROP' Serial specimen #1, #2, #3, or #4: [facility] [address] [place], [place], [address] GAP 8 (Normal) Range: 5-15 CO2 28.0 [...] 126 mg/dLsuggests DIABETES MELLITUS per A.D.A. criteria. :10 CBC W/Diff, Automated Comments: [facility] [address] [place], [address] Absolute Lymph 1.32 {X10_3/ul} (Normal) Range: 0.83-4.51 [...] 4.2-5.4 WBC 8.5 K/mm3 (Normal) Range: 4.4-11.0 4-Gjw-615458:10 CK-MB Quantitative and Index Comments: Serial Specimen #1, #2 or #3? 1'TROP' Serial specimen #1, #2, #3, or #4: 1[facility] [address] [place], [place], [id number] CKRI 1.3 % (Normal) Range: 0.0-1.4 Comments: RELATIVE INDEX >1.5% IS PRESUMPTIVELY POSITIVE CPKMB 4.3 ng/mL (Normal) Range: 0.0-5.0 Comments: CK-MB and RI Interpretation MB Relative Index Non-AMI <or= 5 NA Indeterminate > 5 <or= 4 AMI > 5 > 4 CPK TOTAL 333 U/L (Abnormal) Range: 26-192 6-Etc-985602:10 Troponin-I Comments: Serial Specimen #1, #2 or #3? 1'TROP' Serial specimen #1, #2, #3, or #4: 1[facility] [address] [place], [place], [address] TROPONIN-I < 0.02 ng/mL (Normal) Comments: TROPONIN-I EXPECTED VALUES <0.05 NEGATIVE 0.06 - 0.59 AT RISK OF NV > OR = 0.60 SUGGEST NV 7-Hny-649119:55 Blood Glucose , Office (08067) Blood Glucose , Office 117 (Normal) :36 HgA1C , Office (01518) HgA1C , Office 7.1 % (Normal) Range: 4.6 - 7.1 :52 CBC W/Diff, Automated Comments: CBCD WITH WBC PER [facility] [id number] [place], [place], [id number] Absolute Lymph 1.67 {X10_3/ul} (Normal) Range: 0.83-4.51 [...] Range: 4.4-11.0 30-Nov-20156:52 Comprehensive Metabolic Profil Comments: [facility] [id number] [place], [address] GAP 10 (Normal) Range: 5-15 CO2 26.0 [...] per A.D.A. criteria. :52 Immunofixation Urine Comments: [facility] (refer to report for specific site)refer to report for address and phone number DEEPALI Urine Comment (Normal) Comments: Immunofixation shows IgG monoclonal protein with lambdalight chain specificity.Bence Jorge Protein positive; lambda type.Performed at: [facility] [facility] [place] [address] 1269Lab Dire ctor: Constantine Christianson PhD, Phone: [phone] :[phone] Immunofixation, Serum Comments: [facility] (refer to report for specific site)refer to report for address and phone number DEEPALI RESULT,S Comment (Normal) Comments: Immunofixation shows IgG monoclonal protein with lambdalight chain specificity. IMMUNOGL M 112 mg/dL (Normal) Range: 26-217 IMMUNO A 110 mg/dL (Normal) Range: 64-422 IMMUNO G 783 mg/dL (Normal) Range: 700-1600 :52 [place] Lambda Light Chains Comments: [facility] (refer to report for specific site)refer to report for address and phone number KAPPA/LAMBDA % 1.03 (Normal) Range: 0.26-1.65 FR LAMBDA LT CH 21.11 mg/L (Normal) Range: 5.71-26.30 FR KAPPA LT CHN 21.66 mg/L (Abnormal) Range: 3.30-19.40 :52 Lipid Profile Comments: [facility] [address] [place], [address] ; review OV 12/02/15 VLDL 35 mg/dL [...] High Risk :52 Microalb:Creat Ratio,Random UR Comments: [facility] Bvjyftcrua6430 MICHELLE Hewitt, [id number] MALB:CREAT 44.5 {mg/g_CRE} (Abnormal) MICROALBUMIN,UR 68.1 mg/L (Normal) UR CREAT 153.00 mg/dL (Normal) :52 Vitamin B12 268 pg/mL (Normal) Comments: [facility] [address] [place], [address] Range: 211-911 Comments: ADDENDA: normal and has f/u this saturday:52 Vitamin D,25 Hydroxy Comments: [facility] [address] [place], [address] Vitamin D 25-OH 48.8 ng/mL (Normal) Comments: Vitamin D 25(OH) Status Range Deficiency <20 ng/mL (50nmol/L) Insuffciency 20 - 30 ng/mL (50 - 75 nmol/L) Sufficiency 30 - 100 ng/mL (75 - 250 nmol/L) Toxicity >100 ng/mL (>250 nmol/L) :15 Basic Metabolic Profile (BMP) Comments: [facility] [address]uv[address] [place], [address] GAP 10 (Normal) Range: 5-15 [...] 200 mg/dLsuggests DIABETES MELLITUS per A.D.A. criteria. 48-Tmg-39612:15 CBC W/Diff, Automated Comments: [facility] Ex[address] [place], [address] RED CELL MORPH NORM C+C {NORMAL} (Normal) [...] 4.2-5.4 WBC 11.4 K/mm3 (Abnormal) Range: 4.4-11.0 29-Wio-768061:08 HgA1C , Office (26590) HgA1C , Office 6.8 % (Normal) Range: 4.6 - 7.1 9-Osf-985423:30 FERRITIN (08138) Comments: PATIENT WAS FASTINGPERFORMED BY: [employer] Kvwglf8001 [facility] [id number] Ferritin, Serum 121 ng/mL (Normal) Range: 15-150 0-Jfu-064038:30 IRON (17561) Comments: PATIENT WAS FASTINGPERFORMED BY: [employer] Rjzfef6011 [facility] [id number] Iron, Serum 56 ug/dL (Normal) Range: 35-155 [...] - 159 >60 years 27 - 139 2-Wci-396502:30 TSH (15647) Comments: PATIENT WAS FASTINGPERFORMED BY: LabVerivo SoftwareRutgers - University Behavioral HealthCareIzlnup8511 [facility] [id number] TSH 1.660 {uIU/mL} (Normal) Range: 0.450-4.500 8-Mud-914506:30 LIPID PANEL (68285) Comments: PATIENT WAS FASTINGPERFORMED BY: [employer] Brjcwb5774 [facility] [id number] LDL/HDL Ratio 2.1 {ratio_units} (Normal) Range: 0.0-3.2 [...] Cholesterol, Total 190 mg/dL (Normal) Range: 100-199 0-Nxf-188246:30 METABOLIC PANEL, COMPREHENSIVE Comments: PATIENT WAS FASTINGPERFORMED BY: LabCoRutgers - University Behavioral HealthCareUhbzyk3720 [facility] [id number] (72742) ALT (SGPT) 24 [iU]/L (Normal) Range: 0-32 [...] Glucose, Serum 122 mg/dL (Abnormal) Range: 65-99 9-Ulz-398427:30 Vitamin D Hydroxy (44007) Comments: PATIENT WAS FASTINGPERFORMED BY: [facility] CommunicationsMer[facility] St[facility] Oibcib5634 [facility] [id number] Vitamin D, 25-Hydroxy 25.3 ng/mL (Abnormal) Range: 30.0-100.0 Comments: Vitamin D deficiency has been defined by the [place] ofMedicine and an Endocrine Society practice guideline as alevel of serum 25-OH vitamin D less than 20 ng/mL (1,2).The Endocrine Society went on to further define vitamin Dinsufficiency as a level between 21 and 29 ng/mL (2).1. IOM ([place] of Medicine). 2010. Dietary reference intakes for calcium and D. [place]: The National Academies Press.2. Rachel MF, Yael MARLEY, Dunia HERRERA, et al. Evaluation, treatment, and prevention of vitamin D deficiency: an Endocrine Society clinical practice guideline. JCEM. 2010; 96(7):1911-30. 2-Inu-691149:30 CBC W/AUTO DIFF WBC Comments: PATIENT WAS FASTINGPERFORMED BY: [employer] Xnuznk8599 [facility] [id number] Information: [id number] (54966) Immature Grans (Abs) 0.0 {x10E3/uL} (Normal) Range: [...] 3.77-5.28 WBC 8.2 {x10E3/uL} (Normal) Range: 3.4-10.8 8-Aju-291796:30 serum free light chains Comments: PATIENT WAS FASTINGPERFORMED BY: [employer] [facility] [id number] (86576) [place]/Lambda Ratio,S 0.81 (Normal) Range: 0.26-1.65 Free Lambda Lt Chains,S 17.93 mg/L (Normal) Range: 5.71-26.30 Free [place] Lt Chains,S 14.55 mg/L (Normal) Range: 3.30-19.40 3-Ics-305400:08 urine immunofixation (95088) Comments: PATIENT NOT FASTINGPERFORMED BY: [employer] [facility] [id number] Information: SRC:UR [id number] DEEPALI Interpretation:U IFEGL (Normal) Comments: 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 7-Pvy-355287:30 serum immunofixation (27417) Comments: PATIENT WAS FASTINGPERFORMED BY: CrowdPC70 [facility] [id number] Immunoglobulin M, Qn, Serum 99 mg/dL (Normal) Range: 40-230 Immunoglobulin A, Qn, Serum 107 mg/dL (Normal) Range: 91-414 Immunoglobulin G, Qn, Serum 814 mg/dL (Normal) Range: 700-1600 Immunofixation Result, Serum IFEGL (Normal) Comments: Immunofixation shows IgG monoclonal protein with lambda light chainspecificity. :49 CBC W/Diff, Automated Comments: [facility] [address] [place], [address] Absolute Lymph 0.99 {X10_3/ul} (Normal) Range: 0.83-4.51 [...] K/mm3 (Normal) Range: 4.4-11.0 :49 Ferritin Comments: [facility] [address] [place], [address] FERRITIN 80 ng/mL (Normal) Range: 8-252 :49 Hemoglobin A1c Comments: [facility] Gl[address]jwjegf4[address] [place], [address] HGB A1C 6.4 % (Abnormal) Range: 4.2-6.3 :49 Iron Comments: [facility] [address] [place], [address] IRON 43 ug/dL (Abnormal) Range: 50-170 :49 Iron Binding Capacity,Total Comments: [facility] [address] [place], [address] TIBC 336 ug/dL (Normal) Range: 250-450 :49 Protein Electro.Ur-Random Comments: [facility] (refer to report for specific site)refer to report for address and phone number M-SPIKE,U Test not performed (Normal) GAMMA GLOB,U Test not performed (Normal) Comments: Test not performed BETA GLOB,U Test not performed (Normal) Comments: Test not performed BHHJC-6-SMMS,U Test not performed (Normal) Comments: Test not performed KGURF-9-XITU,U Test not performed (Normal) Comments: Test not [...] electrophoresis scan will follow via computer,mail, or vp research delivery. NOTE: Comment (Normal) Comments: The SPE [...] electrophoresis scan will follow via computer,mail, or vp research delivery. A/G RATIO 1.5 (Normal) Range: 0.7-2.0 [...] 6.0-8.5 :49 Thyroid Stim Hormone (TSH) Comments: [facility] [address] [place], [address] TSH 4.43 {uIU/mL} (Abnormal) Range: 0.358-3.74 :49 Vitamin B12 431 pg/mL (Normal) Comments: [facility] [address] [place], [address] Range: 211-911 Comments: ADDENDA: has apt today :58 AFP, Tumor Marker Comments: Is [facility] ? [facility]refer to report for specific site)refer to report for address and phone number AFP TUMOR 2253 4.9 ng/mL (Normal) Range: 0.0-8.3 Comments: Patricia ECLIA methodologyPerformed at: [facility] [address] [id number] Director: Constantine Christianson PhD, Phone: [phone] :[phone] CBC W/Diff, Automated Comments: [facility] [address] [place], [address] Absolute Lymph 1.46 {X10_3/ul} (Normal) Range: 0.83-4.51 [...] 4.2-5.4 WBC 7.3 K/mm3 (Normal) Range: 4.4-11.0 31-Pkw-50263:58 Comprehensive Metabolic Profil Comments: [facility] [address] [place], [address] GAP 7 (Normal) Range: 5-15 CO2 28.0 [...] per A.D.A. criteria. :58 Lipid Profile Comments: [facility] [address] [place], [place], [id number] ; non-emergent and has apth this week [...] :58 Vitamin B12 278 pg/mL (Normal) Comments: [facility] [address]zptxtts[address] [place], [place], [address] Range: 211-911 :58 Vitamin D,25 Hydroxy Comments: [facility] Yckjwcadql[address] [place], [address] Vitamin D 25-OH 38.4 ng/mL (Normal) Comments: Vitamin D 25(OH) Status Range Deficiency <20 ng/mL (50nmol/L) Insuffciency 20 - 30 ng/mL (50 - 75 nmol/L) Sufficiency 30 - 100 ng/mL (75 - 250 nmol/L) Toxicity >100 ng/mL (>250 nmol/L) 05-Htf-098973:07 HgA1C , Office (44943) HgA1C , Office 6.5 % (Normal) Range: 4.6 - 7.1 :43 AFP, Tumor Marker Comments: Is Patient ? NTest performed at:[facility] Wkioxepfru2370 [place] [address] AFP TUMOR 2253 4.8 ng/mL (Normal) Range: 0.0-8.3 Comments: [employer] ECLIA methodologyPerformed at: [facility] [address] [id number] Director: Arnold Jefferson PhD, Phone: [phone] :[phone] CBC W/Diff, Automated Comments: Test performed at:[facility] Smxxrhooar8241 [place] [address] Absolute Lymph 1.16 {X10_3/ul} (Normal) [...] 4.2-5.4 WBC 5.6 K/mm3 (Normal) Range: 4.4-11.0 :43 Comprehensive Metabolic Profil Comments: Test performed at:[facility] Jlfpfmlwuj4037 [facility] [place] [address] GAP 11 (Normal) Range: 5-15 CO2 24.0 [...] criteria. :43 Lipid Profile Comments: Test performed at:[facility] Qdqtbvnyms6569 [facility] [address]. [place], [place] [address] VLDL 61 mg/dL (Abnormal) Range: 5-40 LDL [...] :43 Microalb:Creat Ratio,Random UR Comments: Test performed at:[facility] Fkb[address]qcjcqr[address] [place] [address] MALB:CREAT 15.9 {mg/g_CRE} (Normal) MICROALBUMIN,UR 19.2 mg/L (Normal) UR CREAT 120.3 mg/dL (Normal) :43 Thyroid Stim Hormone (TSH) Comments: Test performed at:[facility] R[address]rm[address]zngb80[address] [place] [address] TSH 2.19 {uIU/mL} (Normal) Range: 0.358-3.74 :43 Vitamin B12 261 pg/mL (Normal) Comments: Test performed at:[facility] [address]tyqck[address] [place] [address] Range: 211-911 Comments: ADDENDA: nl and pt has apt tomorrow :43 Vitamin D,25 Hydroxy Comments: Test performed at:[facility] Vzwseapwbm[address] [place] [address] Vitamin D 25-OH 30.9 ng/mL (Normal) Comments: Vitamin D 25(OH) Status Range Deficiency <20 ng/mL (50nmol/L) Insuffciency 20 - 30 ng/mL (50 - 75 nmol/L) Sufficiency 30 - 100 ng/mL (75 - 250 nmol/L) Toxicity >100 ng/mL (>250 nmol/L) :38 HgA1C , Office (56085) HgA1C , Office 6.7 % (Normal) Range: 4.6 - 7.1 :56 AFP, Tumor Marker Comments: Is Patient ? NTest performed at:[facility] Oeolwzbowb6889 [facility] [place], [place] [address] ; appt 02/15 AFP TUMOR 2253 4.8 ng/mL (Normal) Range: 0.0-8.3 Comments: [employer] ECLIA methodologyPerformed at: [facility] [address] [id number] Director: Arnold Jefferson PhD, Phone: [phone] :[phone] CBC W/Diff, Automated Comments: Test performed at:[facility] Xfozjgliri9817 [place] [address] Absolute Lymph 2.37 {X10_3/ul} (Normal) Range: [...] 4.4-11.0 :56 Lipid Profile Comments: Test performed at:[facility] [address] [place] [address] VLDL 26 mg/dL (Normal) Range: 5-40 LDL [...] :56 Partial Thromboplast Time Comments: Test performed at:[facility] [address] [place] [address] PTT 30.1 s (Normal) Range: 24.1-36.2 :56 Prothrombin Time w/INR Comments: Test performed at:[facility] [address] [place] [address] INR 1.0 (Normal) PROTIME 12.8 s (Normal) Range: 11.7-14.9 :56 Thyroid Stim Hormone (TSH) Comments: Test performed at:[facility] [address] [place] [address] TSH 5.17 {uIU/mL} (Abnormal) Range: 0.358-3.74 :56 Vitamin B12 293 pg/mL (Normal) Comments: Test performed at:[facility] [address] [place] [address] Range: 211-911 :56 Vitamin D,25 Hydroxy Comments: Test performed at:[facility] [address]qs[address] [place] [address] Vitamin D 25-OH 32.0 ng/mL (Normal) Comments: Vitamin D 25(OH) Status Range Deficiency <20 ng/mL (50nmol/L) Insuffciency 20 - 30 ng/mL (50 - 75 nmol/L) Sufficiency 30 - 100 ng/mL (75 - 250 nmol/L) Toxicity >100 ng/mL (>250 nmol/L) 75-Nak-016437:07 HgA1C , Office (12599) HgA1C , Office 6.3 % (Normal) Range: 4.6 - 7.1 :33 CBC W/Diff, Automated Comments: Test performed at:[facility] [address] [place] [id number] ; non- emergent till apt Absolute Lymph [...] 4.2-5.4 WBC 7.3 K/mm3 (Normal) Range: 4.4-11.0 :33 Comprehensive Metabolic Profil Comments: Test performed at:[facility] Rtmvhgodhk3090 [facility]. [place], [place] [address] GAP 4 (Abnormal) Range: 5-15 CO2 28.0 [...] criteria. :33 Lipid Profile Comments: Test performed at:[facility] Dxijuuulif7219 [facility]. [place], [place] [address] VLDL 29 mg/dL (Normal) Range: 5-40 LDL [...] B12 394 pg/mL (Normal) Comments: Test performed at:[facility] Mbznpwivdv1796 [place] [address] Range: 211-911 :33 Vitamin D,25 Hydroxy Comments: Test performed at:[facility] Fuwgvgevkz0920 [place] [address] Vitamin D 25-OH 39.6 ng/mL (Normal) Comments: Vitamin D 25(OH) Status Range Deficiency <20 ng/mL (50nmol/L) Insuffciency 20 - 30 ng/mL (50 - 75 nmol/L) Sufficiency 30 - 100 ng/mL (75 - 250 nmol/L) Toxicity >100 ng/mL (>250 nmol/L) 14-Uev-695020:10 HgA1C , Office (07960) HgA1C , Office 6.4 % (Normal) Range: [...] 4.2-5.4 WBC 6.0 K/mm3 (Normal) Range: 4.4-11.0 :42 CMP GAP 5 (Normal) Range: 5-15 CO2 [...] CHOL 167 mg/dL (Normal) Comments: <200 mg/dL Hzbrmgdxa514-582 mg/dL Borderline>240 mg/dL High Risk TRIG 200 mg/dL (Abnormal) Range: 0-199 Comments: Serum Triglycerides Reference IntervalNormal <150 mg/dLBorderline high 150 - 199 mg/dLHigh 200 - 499 mg/ dLVery High > or = 500 mg/dL :42 TIBC 275 ug/dL (Normal) Range: 250-450 :42 TSH 2.12 {uIU/mL} (Normal) Range: 0.358-3.74 58-Mtt-302669:10 FERRITIN (95775) Comments: PATIENT NOT FASTINGPERFORMED BY: InvenSense6370 [facility] [id number] Ferritin, Serum 133 ng/mL (Normal) Range: 15-150 :10 IRON BINDING CAPACITY Comments: PATIENT NOT FASTINGPERFORMED BY: [employer] Amekau8859 [facility] [id number] Information: [id number] (TIBC) (96904) Iron Saturation 20 % (Normal) Range: 15-55 Iron, Serum 62 ug/dL (Normal) Range: 35-155 UIBC 241 ug/dL (Normal) Range: 150-375 Iron Bind.Cap.(TIBC) 303 ug/dL (Normal) Range: 250-450 25-Rww-743085:10 VITAMIN B-12 (CYANOCOBALAMIN) Comments: PATIENT NOT FASTINGPERFORMED BY: [employer] Qryopl6867 [facility] [id number] (30865) Vitamin B12 421 pg/mL (Normal) Range: 211-946 10-Xnh-758966:10 TSH (90075) Comments: PATIENT NOT FASTINGPERFORMED BY: LabCoRutgers - University Behavioral HealthCareIugnub8839 [facility] [id number] TSH 1.150 {uIU/mL} (Normal) Range: 0.450-4.500 96-Rfa-046179:37 HgA1C , Office (89839) HgA1C , Office 6.1 % (Normal) Range: 4.6 - 7.1 2-Szd-944768:10 CBC with manual diff Comments: PATIENT WAS FASTINGPERFORMED BY: [employer] Xqkjso3884 [facility] [id number] Information: [id number] (19620) Immature Grans (Abs) 0.0 {x10E3/uL} (Normal) Range: [...] 3.77-5.28 WBC 8.2 {x10E3/uL} (Normal) Range: 3.4-10.8 3-Lfh-644363:10 Metabolic Panel, Comprehensive Comments: PATIENT WAS FASTINGPERFORMED BY: LabCoRut[facility] - University Behavioral HealthCareQmtizg9910 [facility] [id number] (06952) ALT (SGPT) 11 [iU]/L (Normal) Range: 0-32 [...] Glucose, Serum 129 mg/dL (Abnormal) Range: 65-99 7-Qho-039849:10 Lipid Panel (29757) Comments: PATIENT WAS FASTINGPERFORMED BY: CorporateWorldRutgers - University Behavioral HealthCareEbzlwy5051 [facility] [id number] LDL/HDL Ratio 1.4 {ratio_units} (Normal) Range: 0.0-3.2 [...] METABOLIC PANEL, Comments: PATIENT NOT FASTINGPERFORMED BY: CorporateWorldRutgers - University Behavioral HealthCareDuihmn0962 [facility] [id number] Information: [id number] COMPREHENSIVE (94171) ALT (SGPT) 15 [iU]/L (Normal) Range: 0-32 [...] 133 mg/dL (Abnormal) Range: 65-99 :14 TSH (01773) Comments: PATIENT NOT FASTINGPERFORMED BY: LabCoRutgers - University Behavioral HealthCareEfnebp1547 [facility] [id number] TSH 0.182 {uIU/mL} (Abnormal) Range: 0.450-4.500 :40 [...] CHOL 99 mg/dL (Normal) Comments: <200 mg/dL Abokuxaxd511-477 mg/dL Borderline>240 mg/dL High Risk :40 MIACRE [...] CHOL 148 mg/dL (Normal) Comments: <200 mg/dL Jtwsucrgz293-159 mg/dL Borderline>240 mg/dL High Risk HDL 46 [...] - 250 nmol/L)Toxicity >100 ng/mL (>250 nmol/L) 75-Dii-450525:27 HgA1C , Office (20677) HgA1C , Office 6.7 % (Normal) Range: 4.6 - 7.1 :17 METABOLIC PANEL, COMPREHENSIVE Comments: PATIENT WAS FASTINGPERFORMED BY: [facility] Zpuhka5287 [facility] [id number] (14790) ALT (SGPT) 16 [iU]/L (Normal) Range: 0-32 [...] mg/dL (Abnormal) Range: 65-99 :17 LIPID PANEL (83438) Comments: PATIENT WAS FASTINGPERFORMED BY: InvenSense6370 [facility] [id number] LDL/HDL Ratio 2.0 {ratio_units} (Normal) Range: 0.0-3.2 [...] MANUAL DIFF Comments: PATIENT WAS FASTINGPERFORMED BY: Searchmetrics6370 [facility] [id number] Information: [id number] (41052) Immature Grans (Abs) 0.0 {x10E3/uL} (Normal) Range: [...] B-12 (CYANOCOBALAMIN) Comments: PATIENT WAS FASTINGPERFORMED BY: [employer]70 [facility] [id number] (00022) Vitamin B12 696 pg/mL (Normal) Range: 211-946 :17 Vitamin D Hydroxy (02463) Comments: PATIENT WAS FASTINGPERFORMED BY: [employer]70 [facility] [id number] Vitamin D, 25-Hydroxy 29.3 ng/mL (Abnormal) Range: 30.0-100.0 Comments: Vitamin D deficiency has been defined by the [place] ofMedicine and an Endocrine Society practice guideline as alevel of serum 25-OH vitamin D less than 20 ng/mL (1,2).The Endocrine Society went on to further define vitamin Dinsufficiency as a level between 21 and 29 ng/mL (2).1. IOM ([place] of Medicine). 2010. Dietary reference intakes for calcium and D. [place]: The National Academies Press.2. Rachel MF, Yael MARLEY, Dunia HERRERA, et al. Evaluation, treatment, and prevention of vitamin D deficiency: an Endocrine Society clinical practice guideline. JCEM. 2010; 96(7):1911-30. 70-Mne-046432:29 HgA1C , Office (04859) HgA1C , Office 7.0 % (Normal) Range: 4.6 - 7.1 2-Phb-316888:14 B12 794 pg/mL (Normal) Range: 211-911 Comments: Effective 201227-Dec-20124-Rev-009624:14 VITD 37.5 ng/mL (Normal) Comments: Vitamin D 25(OH) Status RangeDeficiency <20 ng/mL (50nmol/L)Insufficiency 20 - 30 ng/mL (50 - 75 nmol/L)Sufficiency 30 - 100 ng/mL (75 - 250 nm ol/L)Toxicity >100 ng/mL (250 nmol/L)Effective 201201-Dec-20129-Auu-624224:13 CHEST PA AND LATERAL Radiology Report See [...] Tate D.O.December 01, 2012 at 12:40:54 PM [id number] Signed DS/DS If you are the referring physician and would like to consult with theradiologist who provided this i nterpretation, please contact Eulalio Tate D.O. at [phone]. If this radiologist is unavailable, you will bedirected to another radiologist to assist. If you are a patient with a question regarding t his report, pleasecontactyour referring physician directly. Professional Interpretation Provided By: [employer], Phone , These documents contain legally protected [...] documents. Dicta gómez on 12/01/12 1040 by Daryn Peterson DOscribed on 12/01/12 1243 by ITS IMPORTSign by Mack Peterson DO on 12/01/12 1244 Sign by: Mack Peterson DO 36-Rcr-709737:20 Upper Respiratory Culture Comments: PATIENT NOT FASTINGPERFORMED BY: [facility] Hwyetu5625 [facility] [id number] Information: SRC: THROAT Result 1 RRF (Normal) Comments: Routine respiratory alton Upper Respiratory Culture Final report (Normal) 41-Cld-681137:06 Rapid Strep Test, Office (51840) Rapid Strep Test, Office Negative (Normal) 66-Gke-442007:32 BILAT SCRN DIGITAL & CAD Radiology Report See Note (Normal) Comments: MAMMOGRAPHY - BILATERAL SCREENING REASON FOR EXAM: Female, 72 years old. Routine annual screeningexamination. PERTINENT HISTORY: Non-contributory. TECHNIQUE: Digital examination. Med iolateral ob lique (MLO) andcraniocaudad (CC) views of both breasts were obtained. CAD: CAD wasperformed on this study. COMPARISON: Comparison is made with prior study dated September 18February 22, 2011. FIND INGS:The breast composition is [...] Wayne M.D.November 18, 2012 at 12:51:57 PM [id number] Signed GP/GP If you are the referring physician and would like to consult with theradiologist who provid ed this interpretation, please contact Lee Claudio at [phone]. If this radiologist is unavailable, youwill be directed to another radiologist to assist. If you are a patient with a ques tion regarding this report, pleasecontactyour referring physician directly. Professional Interpretation Provided By: [employer], Phone , These documents contain legally pr [...] doc uments. Dictated on 11/18/12 1232 by David Wayne MDranscribed on 11/18/12 1253 by ITS IMPORTSign by Teo Wayne MD on 11/18/12 1254 Sign by: Teo Wayne MD 3-Xjp-578584:24 URINE RANI CULTURE-IDENTIFICATN Comments: PATIENT NOT FASTINGPERFORMED BY: LabCoRut[facility] - University Behavioral HealthCareVimqpr1693 [facility] [id number] Information: [id number] (94146) Result 1 MUG (Normal) Comments: Mixed urogenital flora10,000-25,000 colony forming units per mL Urine Final report (Normal) Culture,Comprehensive 01-Zsj-570230:50 METABOLIC PANEL, Comments: PATIENT NOT FASTINGPERFORMED BY: [facility] Ubpfjb1548 [facility] [id number] Information: ADD [id number] AND DRAW FEE 99 6660 COMPREHENSIVE (72398) ALT (SGPT) 14 [iU]/L (Normal) Range: 0-32 [...] Glucose, Serum 109 mg/dL (Abnormal) Range: 65-99 6-Dow-126442:42 HgA1C , Office (46024) HgA1C , Office 6.3 % (Normal) Range: 4.6 - 7.1 :04 Microscopic Examination Comments: PATIENT NOT FASTINGPERFORMED BY: [facility] Snmzws6344 [address] Road[place]ublin [place] [id number] Bacteria Few (Normal) Mucus Threads Present (Normal) Cast Type Hyaline casts (Normal) Casts Present {/lpf} (Abnormal) Epithelial Cells (non renal) 0-10 {/hpf} (Normal) Range: 0 - 10 RBC 0-3 {/hpf} (Normal) Range: 0 - 3 WBC 6-10 {/hpf} (Abnormal) Range: 0 - 5 :04 VITAMIN B-12 (CYANOCOBALAMIN) Comments: PATIENT NOT FASTINGPERFORMED BY: CB [facility] Bhmfvo7[address] [facility] [place] [id number] (20796) Vitamin B12 1228 pg/mL (Abnormal) Range: 211-946 :04 Vitamin D Hydroxy (05396) Comments: PATIENT NOT FASTINGPERFORMED BY: CB [facility] Bsjhcx9207 [address] Road[address]ublin [place] [id number] Vitamin D, 25-Hydroxy 21.9 ng/mL (Abnormal) Range: 30.0-100.0 Comments: Vitamin D deficiency has been defined by the [place] of[place]icine and an Endocrine Society practice guideline as alevel of serum 25-OH vitamin D less than 20 ng/mL (1,2).The Endocrine Society went on to further define vitamin Dinsufficiency as a level between 21 and 29 ng/mL (2).1. IOM ([place] of [place]). 2010. Dietary reference intakes for calcium and D. [place]: The National Academies Press.2. Rachel MF, Yael NC, Dunia HERRERA, et al. Evaluation, treatment, and prevention of vitamin D deficiency: an Endocrine Society clinical practice guideline. JCEM. 2010; 96(7):1911-30. :04 URINALYSIS, W/ MICRO (58028) Comments: PATIENT NOT FASTINGPERFORMED BY: CB [facility] Zltnyj5470 [address] [facility] HospitalDublin [place] [id number] Microscopic Examination See below: (Normal) Nitrite, Urine Negative (Normal) Bilirubin Negative (Normal) Urobilinogen,Semi-Qn 0.2 mg/dL (Normal) Range: 0.0-1.9 Occult Blood Negative (Normal) Ketones Negative (Normal) Glucose Negative (Normal) Protein Negative (Normal) WBC Esterase 1+ (Abnormal) Appearance Clear (Normal) Urine-Color Yellow (Normal) pH 5.5 (Normal) Range: 5.0-7.5 Specific [place] 1.024 (Normal) Range: 1.005-1.030 60-Kok-54537:04 CBC WITH MANUAL DIFF Comments: PATIENT NOT FASTINGPERFORMED BY: LabCoRutgers - [facility] Behavioral HealthCareTtqtxv0094 [facility] [id number] Information: [id number] ([id number]) Immature Grans (Abs) 0.0 {x10E3/uL} (Normal) Range: [...] 3.77-5.28 WBC 7.2 {x10E3/uL} (Normal) Range: 4.0-10.5 :04 METABOLIC PANEL, COMPREHENSIVE Comments: PATIENT NOT FASTINGPERFORMED BY: [facility] Wqyzwo7828 [address] [facility] HospitalMiTúAt[facility] Health [facility] [id number] (03691) ALT (SGPT) 13 [iU]/L (Normal) Range: 0-32 [...] mg/dL (Abnormal) Range: 65-99 :04 LIPID PANEL (43491) Comments: PATIENT NOT FASTINGPERFORMED BY: CrowdPC70 [address] [facility] [id number] LDL Cholesterol Calc 103 mg/dL (Abnormal) Range: [...] pg/mL (Normal) Range: 211-946 Comments: Performed at: [facility] Lab[address] [id number] Director: Arnold Jefferson PhD, Phone: [phone] :[phone] CMP GAP 9 (Normal) Range: 5-15 [...] 250 nmol/L) Toxicity >100 ng/mL (250 nmol/L)Effective 201215-Aug-201221-Blo-388529:20 Metabolic Panel, Basic Comments: PATIENT NOT FASTINGPERFORMED BY: [facility] Gdqpsl2294 [facility] [id number] Information: [id number] (43536) Calcium, Serum 10.2 mg/dL (Normal) Range: 8.6-10.2 [...] Glucose, Serum 99 mg/dL (Normal) Range: 65-99 5-Zzf-271973:24 Microscopic Examination Comments: PATIENT NOT FASTINGPERFORMED BY: [facility] Smnrjs3995 Waller RoadDublin [place] [id number] Bacteria Few (Normal) Mucus Threads Present (Normal) Epithelial Cells (non renal) 0-10 {/hpf} (Normal) Range: 0 - 10 RBC 0-3 {/hpf} (Normal) Range: 0 - 3 WBC 6-10 {/hpf} (Abnormal) Range: 0 - 5 :24 Vitamin D Hydroxy (46529) Comments: PATIENT NOT FASTINGPERFORMED BY: CB [facility] Dmayll6823 Waller RoadDublin [place] [id number] Vitamin D, 25-Hydroxy 21.7 ng/mL (Abnormal) Range: 30.0-100.0 Comments: Vitamin D deficiency has been defined by the [place] of[facility] and an Endocrine Society practice guideline as alevel of serum 25-OH vitamin D less than 20 ng/mL (1,2).The Endocrine Society went on to further define vitamin Dinsufficiency as a level between 21 and 29 ng/mL (2).1. IOM ([place] of [place]). 2010. Dietary reference intakes for calcium and D. [place]: The National Academies Press.2. Rachel MF, Yael NC, Dunia HERRERA, et al. Evaluation, treatment, and prevention of vitamin D deficiency: an Endocrine Society clinical practice guideline. JCEM. 2010; 96(7):1911-30. 4-Yoj-343596:24 VITAMIN B-12 (CYANOCOBALAMIN) Comments: PATIENT NOT FASTINGPERFORMED BY: CB [facility] Xnvzhv7465 Waller RoadDublin [place] [id number] (17783) Vitamin B12 431 pg/mL (Normal) Range: 211-946 9-Phj-920577:24 URINALYSIS, W/ MICRO (56588) Comments: PATIENT NOT FASTINGPERFORMED BY: CB [facility] Cfhuir7169 Waller RoadDublin [place] [id number] Microscopic Examination MICRON (Normal) Comments: Microscopic follows if indicated. Microscopic Examination See below: (Normal) Nitrite, Urine Negative (Normal) Urobilinogen,Semi-Qn 0.2 mg/dL (Normal) Range: 0.0-1.9 Bilirubin Negative (Normal) Ketones Negative (Normal) Occult Blood Negative (Normal) Glucose Negative (Normal) Protein Negative (Normal) WBC Esterase Negative (Normal) Appearance Clear (Normal) pH 6.5 (Normal) Range: 5.0-7.5 Urine-Color Yellow (Normal) Specific [place] 1.022 (Normal) Range: 1.005-1.030 9-Zgb-752565:24 CBC WITH MANUAL DIFF Comments: PATIENT NOT FASTINGPERFORMED BY: LabCoRutgers - [facility] Behavioral HealthCarePulddk8198 [facility] [id number] Information: [id number] (33250) Immature Grans (Abs) 0.0 {x10E3/uL} (Normal) Range: [...] 3.77-5.28 WBC 7.9 {x10E3/uL} (Normal) Range: 4.0-10.5 0-Swe-089360:24 METABOLIC PANEL, COMPREHENSIVE Comments: PATIENT NOT FASTINGPERFORMED BY: [employer] Qkvuha3775 [facility] [id number] (17471) ALT (SGPT) 16 [iU]/L (Normal) Range: 0-32 [...] Glucose, Serum 107 mg/dL (Abnormal) Range: 65-99 0-Wpu-989321:24 TSH (88878) Comments: PATIENT NOT FASTINGPERFORMED BY: [employer] Nduthc7715 [facility] [id number] TSH 2.000 {uIU/mL} Range: 0.450-4.500 (Normal) CCP Antibodies IgG/IgA 1 {units} (Normal) Comments: PATIENT NOT FASTINGPERFORMED BY: LabCoKathryn [place] 7991270 [facility] [id number] BY: Lab[address] [id number] :39 Range: 0-19 Comments: Negative <20 Weak positive 20 - 39 Moderate positive 40 - 59 Strong positive >59 :39 Systemic Lupus Profile Comments: PATIENT NOT FASTINGPERFORMED BY: LabCoKathryn [place] 7991270 [facility] [id number] BY: Lab[address] [id number] Information: [id number] (80506) Anti-DNA (DS) Ab Qn <1 {IU/mL} (Normal) Range: 0-9 Comments: Negative <5 Equivocal 5 - 9 Positive >9 Sjogren's Anti-SS-B 0.5 {AI} (Normal) Range: 0.0-0.9 Sjogren's Anti-SS-A 0.3 {AI} (Normal) Range: 0.0-0.9 Antichromatin Antibodies <0.2 {AI} (Normal) Range: 0.0-0.9 RA Latex Turbid. 8.5 {IU/mL} (Normal) Range: 0.0-13.9 [place] Antibodies <0.2 {AI} (Normal) Range: 0.0-0.9 CONDENSER TESTER Antibodies <0.2 {AI} (Normal) Range: 0.0-0.9 :27 HgA1C , Office (32835) HgA1C , Office 6.2 % (Normal) Range: 4.6 - 7.1 :27 Blood Glucose , Office (05801) Blood Glucose , Office 108 (Normal) :45 [...] D deficiency has been defined by the [place] of[place]icine and an Endocrine Society practice guideline as alevel of serum 25-OH vitamin D less than 20 ng/mL (1,2).The Endocrine Society went on to further define vitamin Dinsufficiency as a level between 21 and 29 ng/mL (2).1. IOM ([place] of [place]). 2010. Dietary reference intakes for calcium and D. [place]: The National Academies Press.2. Rachel MF, Yael MARLEY, Dunia HERRERA, et al. Evaluation, treatment, and prevention of vitamin D deficiency: an Endocrine Society clinical practice guideline. JCEM. 2010; 96(7): 1911-30.Performed at: [facility] [address] [id number] Director: Arnold Jefferson PhD, Phone: [phone] 90-Clr-748586:59 Blood Glucose , Office (04052) Blood Glucose , Office 131 (Normal) 63-Ccv-934377:58 HgA1C , Office (74394) HgA1C , Office 6.8 % (Normal) Range: 4.6 - 7.1 03-Zha-160685:12 CBCMD RBCM NORM C+C {NORMAL} (Normal) PE [...] 4.2-5.4 WBC 7.0 K/mm3 (Normal) Range: 4.4-11.0 27-Atq-695154:12 CMP GAP 10 (Normal) Range: 5-15 CO2 [...] mg/dL suggests DIABETES MELLITUS per A.D.A. criteria. 62-Tvu-097242:12 LIPID LDL 104 mg/dL (Normal) Range: 0-130 [...] 200-240 mg/dL Borderline >240 mg/dL High Risk 76-Wih-306063:12 TSH 2.08 {uIU/mL} (Normal) Range: 0.358-3.74 78-Tqh-749983:12 VITD 34.7 ng/mL (Normal) Range: 30.0-100.0 Comments: Vitamin D deficiency has been defined by the [place] of[facility] and an Endocrine Society practice guideline as alevel of serum 25-OH vitamin D less than 20 ng/mL (1,2).The Endocrine Society went on to further define vitamin Dinsufficiency as a level between 21 and 29 ng/mL (2).1. IOM ([place] of [place]). 2010. Dietary reference intakes for calcium and D. [place]: The National Academies Press.2. Rachel MF, Yael MARLEY, Dunia HERRERA, et al. Evaluation, treatment, and prevention of vitamin D deficiency: an Endocrine Society clinical practice guideline. JCEM. 2010; 96(7): 1911-30.Performed at: - Lab[address] [id number] Director: Tona Emmanuel MD, Phone: [phone] 06-Pem-776695:15 HgA1C , Office (38854) HgA1C , Office 5.8 % (Normal) Range: 4.6 - 7.1 19-Qaf-213182:15 Blood Glucose , Office (49763) Blood Glucose , Office 113 (Normal) :30 [...] D deficiency has been defined by the [place] of[place]icine and an Endocrine Society practice guideline as alevel of serum 25-OH vitamin D less than 20 ng/mL (1,2).The Endocrine Society went on to further define vitamin Dinsufficiency as a level between 21 and 29 ng/mL (2).1. IOM ([place] of [place]). 2010. Dietary reference intakes for calcium and D. [place]: The National Academies Press.2. Rachel MF, Yael NC, Dunia HERRERA, et al. Evaluation, treatment, and prevention of vitamin D deficiency: an Endocrine Society clinical practice guideline. JCEM. 2010; 96(7): 1911-30.Performed at: [address] [id number] Director: Tona Emmanuel MD, Phone: [phone] 38-Rog-921444:02 CTA NECK W/WO CONTRAST Radiology Report See [...] ologist regarding this report, please call our 93O6ywdtrir line @ Dictated on 10/08/11 [address],Davidranscribed on 10/09/11 0856 by ITS IMPORTSign by Hema STREETER,Juana hairston on 10/09/11 0857 Sign by: Teo Wayne MD 37-Fuu-889652:00 BILAT SCRN DIGITAL & CAD Radiology Report [...] has been nosignificant change since the prior st udy. IMPRESSION:Stable bilateral screening mammogram. Yearly follow-up recommended. (A) ASSESSMENT CATEGORY: Approximately 10% of breast cancers are not detected by mammography. Anormal mammogram sh ould not delay biopsy of a clinically suspiciousabnormality. To consult with a radiologist regarding this report, please call our 05C2fsjmftx line @ Dictated on 09/18/11 1040 by Ori clifton MD,Davidranscribed on 09/20/11 0901 by ITS IMPORTSign by Teo Wayne MD on 09/20/11 0902 Sign by: Teo Wayne MD 50-Grw-11194:59 DEXA BONE DENSITY STUDY (HP) Radiology Report [...] regarding this re port, please call our 45I1ixniyrt line @ Dictated on 09/18/11 1002 by David Wayne MDranscribed on 09/19/11 1416 by ITS IMPORTSign by Teo Wayne MD on 09/19/11 1417 Sign by: Teo Wayne MD 46-Dix-360621:17 HgA1C , Office (51340) HgA1C , Office 5.9 % (Normal) Range: 4.6 - 7.1 14-Qdq-216131:17 Blood Glucose , Office (35593) Blood Glucose , Office 77 (Normal) 04-Sep-20119:44 CBCD,SMEAR DIFF RED CELL MORPH SeeNote {NORMAL} [...] >240 mg/dL High Risk :44 VIT D,25 80863 22.3 ng/mL (Abnormal) Range: 30.0-100.0 Comments: Vitamin D deficiency has been defined by the [place] of[place]icine and an Endocrine Society practice guideline as alevel of serum 25-OH vitamin D less than 20 ng/mL (1,2).The Endocrine Society went on to further define vitamin Dinsufficiency as a level between 21 and 29 ng/mL (2).1. IOM ([place] of [place]). 2011. Dietary reference intakes for calcium and D. [place]: The National Academies Press.2. Rachel MF, Yael NC, Dunia HERRERA, et al. Evaluation, treatment, and prevention of vitamin D deficiency: an Endocrine Society clinical practice guideline. JCEM. 2010; 96(7): 1911-30.Performed at: - LabCo[address] [id number] Director: Tona Emmanuel MD, Phone: [phone] :34 HgA1C , Office (89992) HgA1C , Office 6.6 % (Normal) Range: 4.6 - 7.1 :34 Blood Glucose , Office (88338) Blood Glucose , Office 116 (Normal) :50 [...] Range: 4.4-11.0 :50 COMP METABOLIC Comments: appt 68522 GAP 10 (Normal) Range: 5-15 CO2 26.0 [...] {uIU/mL} (Normal) Range: 0.358-3.74 :50 VIT D,25 30310 41.3 ng/mL (Normal) Range: 32.0-100.0 Comments: Effective June 18, 2011 Vitamin D, 25-Hydroxy reference intervals will be changing to 30-100. .Recent studies consider the lower li lalo of 32.0 ng/mL to be athreshold for optimal health.Pepito ANNE. J Nutr. 2004;135(2):317-22.Performed at: - LabCo[address] [id number] Director: Tona Emmanuel MD, Phone: [phone] :50 VITAMIN B12 806 pg/mL (Normal) Range: 254-1320 Comments: There is a low frequency possibility that high titers ofintrinsic blocking antibodies may not be completely inactivated during the reaction pretreatment stepof this testing method. If test results are i n conflictwith the clinical diagnosis, patient should be testedfor the presence of intrinsic factor blocking antibodies. :09 Comp. Metabolic Panel (14) Comments: PATIENT WAS FASTINGPERFORMED BY: [employer]6370 [facility] [id number] ALT (SGPT) 40 [iU]/L (Normal) Range: 0-40 [...] With LDL/HDL Comments: PATIENT WAS FASTINGPERFORMED BY: [employer]6370 [facility] [id number] Ratio LDL Cholesterol Calc 74 mg/dL (Normal) [...] 0.192 {uIU/mL} Comments: PATIENT WAS FASTINGPERFORMED BY: [employer]6370 [facility] [id number] 09 (Abnormal) Range: 0.450-4.500 : Vitamin B12 417 pg/mL (Normal) Comments: PATIENT WAS FASTINGPERFORMED BY: [employer]6370 [facility] [id number] 09 Range: 211-946 62-Crz-899067:22 UNILAT LT DIAG DIGITAL & CAD Radiology [...] 02/22/11 0945 by David Wayne MDranscribed on 02/23/111509 by ITS IMPORTSign by Teo Wayne MD on 02/23/11 1511 Sign by: Teo Wayne MD :58 CBCD,SMEAR DIFF Comments: appt 10/24/10 RED CELL [...] {uIU/mL} (Abnormal) Range: 0.358-3.74 :58 VIT D,25 83454 22.0 ng/mL (Abnormal) Comments: appt 10/24/10 Range: 32.0-100.0 Comments: Recent studies consider the lower limit of 32.0 ng/mL to tammy threshold for optimal health.Pepito ANNE. J Nutr. 2004;135(2):317-22.Performed at: - LabCoDavid [place] [id number] Director: Tona Emmanuel MD, Phone: [phone] :58 VITAMIN B12 285 pg/mL (Normal) Range: 254-1320 Comments: There is a low frequency possibility that high titers ofintrinsic blocking antibodies may not be completely inactivated during the reaction pretreatment stepof this testing method. If test results are i n conflictwith the clinical diagnosis, patient should be testedfor the presence of intrinsic factor blocking antibodies. 7-Gup-992368:42 Thin prep Pap Comments: Source.............Cervical;EndocervicalNo. of containers..01 CYTYC Thin Prep VialPATIENT NOT FASTINGPERFORMED BY: [facility] [address] [id number] Information: [id number] (09309) Note: PAPSMR (Normal) Comments: The Pap smear [...] ; Screening for malignant neoplasm of the cervixMattsteve Montes Barkeeper (ASCP) 39-Cxw-792472:26 BREAST UNILATERAL Radiology Report See Note (Normal) [...] on 08/28/10 1453 Sign by: ANTHONY PALOMARES 87-Noj-640782:58 UNILAT LT DIAG DIGITAL & CAD Radiology [...] Category 3: Probably Benign Finding - Initial Tplws-HnsyvitsPpeqtk-wk Suggested. A letter regarding these results will be sent tothepatient by the facility within 30 days. Approximately 10% of breast cancers are not detected by mammography. Anormal mammogram should not delay biopsy of a clinically suspiciousabnormality. Dictated on 08/24/10 1206 by ATNHONY PALOMARESTranscribed on 0 08/24/10 1351 by ITS IMPORTSign by ANTHONY PALOMARES on 08/24/10 1352 Sign by: ANTHONY PALOMARES 65-Edw-74842:43 BILAT SCRN DIGITAL & CAD Radiology Report [...] 0950 by ANTHONY PALOMARES MDTranscribed on 08/18/10 1451 by ITS IM PORTSign by ANTHONY PALOMARES MD on 08/18/10 1452 Sign by: ANTHONY PALOMARES MD 9-Fms-462395:14 HgA1C , Office (54113) HgA1C , Office 6.5 % (Normal) Range: 4.6 - 7.1 7-Uvk-025837:14 Blood Glucose , Office (34287) Blood Glucose , Office 176 (Normal) 30-Jun-20107:30 CBCD,SMEAR DIFF PLT EST SeeNote (Normal) Comments: [...] CREAT 161.2 mg/dL (Normal) : VIT D,25 59493 27.7 ng/mL Range: 32.0-100.0 30 (Abnormal) Comments: Recent studies consider the lower limit of 32.0 ng/mL to tammy threshold for optimal health.Pepito ANNE. J Nutr. 2004;135(2):317- 22.Performed at: [address] [id number] Director: Tona Emmanuel MD, Phone: [phone] : VITAMIN B12 449 pg/mL (Normal) Range: [...] {units} (Normal) Comments: PATIENT NOT FASTINGPERFORMED BY: [address] [id number] BY: [address] [id number] 0:44 Range: 0-19 Comments: Negative <20 Weak positive 20 - 39 Moderate positive 40 - 59 Strong positive >59 Comment: SPRCS (Normal) Comments: PATIENT NOT FASTINGPERFORMED BY: [address] [id number] BY: [address] [id number] 0:44 Comments: Effective April 25, 2009 order code 438590 CCP IgGAntibodies has been replaced due to an updated reagentversion 3.1. For this reason [facility] has provided youwith a new order code 018052 CCP Antibodies IgG/IgA. 84-Fvb-262419:44 Vitamin D Hydroxy Comments: PATIENT NOT FASTINGPERFORMED BY: [address] [id number] BY: [address] [id number] (08384) Vitamin D, 25-Hydroxy 30.9 ng/mL (Abnormal) Range: 32.0-100.0 Comments: Recent studies consider the lower limit of 32.0 ng/mL to be athreshold for optimal health.Pepito ANNE. J Nutr. 2004;135(2):317-22. 94-Yqk-471998:44 SED RATE ERYTHROCYTE Comments: PATIENT NOT FASTINGPERFORMED BY: [address] [id number] BY: [address] [id number] (56735) Sedimentation Rate-Westergren 4 mm/h (Normal) Range: 0-30 48-Qob-422927:44 C-REACTIVE PROTEIN Comments: PATIENT NOT FASTINGPERFORMED BY: [place] 9866670 [facility] [id number] BY: [address] [id number] (59058) C-Reactive Protein, Quant 2.5 mg/L (Normal) Range: 0.0-4.9 77-Cwd-723001:44 TSH (54570) Comments: PATIENT NOT FASTINGPERFORMED BY: [address] [id number] BY: [address] [id number] TSH 2.050 {uIU/mL} (Normal) Range: 0.450-4.500 59-Mxs-124330:44 RHEUMATOID FACTOR-QUANT Comments: PATIENT NOT FASTINGPERFORMED BY: [address] RoadDublin [place] [id number] BY: [address] [id number] (77533) RA Latex Turbid. 8.4 {IU/mL} (Normal) Range: 0.0-13.9 22-Lqj-276697:44 MELI (ANTINUCLEAR ANTIBODY) Comments: PATIENT NOT FASTINGPERFORMED BY: LabJohn [place] 9785570 [facility] [id number] BY: [address] [id number] (77588) MELI Direct Negative (Normal) 53-Uch-603863:44 CBC WITH MANUAL DIFF Comments: PATIENT NOT FASTINGPERFORMED BY: LabJohn [place] 9785570 [facility] [id number] BY: [address] [id number] Inf ormation: ADD [id number] AND DRAW FEE 99 0823 (98148) Immature Grans (Abs) 0.0 {x10E3/uL} (Normal) Range: [...] 3.80-5.10 WBC 6.8 {x10E3/uL} (Normal) Range: 4.0-10.5 31-Hwt-837305:44 METABOLIC PANEL, Comments: PATIENT NOT FASTINGPERFORMED BY: CB [facility] Shkzsu6540 [facility] [id number] BY: BN [facility] Lzisxbkvtg7297 [facility] [id number] COMPREHENSIVE (97180) ALT (SGPT) 21 [iU]/L (Normal) Range: 0-40 [...] (Abnormal) Range: 65-99 :33 HgA1C , Office (02681) HgA1C , Office 6.8 % (Normal) Range: 4.6 - 7.1 :33 Blood Glucose , Office (32278) Blood Glucose , Office 135 (Normal) :22 [...] CHOL 157 mg/dL (Normal) Comments: <200 mg/dL Rpgiktqfd694-256 mg/dL Borderline>240 mg/dL High Risk :22 LIVER ALB 3.5 g/dL (Normal) Range: 3.4-5.0 ALK P 97 U/L (Normal) Range: 50-136 ALT 21 U/L (Normal) Range: 12-78 AST 16 U/L (Normal) Range: 15-37 D BILI 0.12 mg/dL (Normal) Range: 0.00-0.30 T BILI 0.40 mg/dL (Normal) Range: 0.00-1.00 T PROT 6.5 g/dL (Normal) Range: 6.4-8.2 :22 TSH 1.54 {uIU/mL} Range: 0.358-3.74 (Normal) :22 VIT D,25 03156 36.8 ng/mL (Normal) Range: 32.0-100.0 Comments: Recent studies consider the lower limit of 32.0 ng/mL to tammy threshold for optimal health.Pepito ANNE. J Nutr. 2004;135(2):317-22.Performed at: [address] [id number] Director: Tona Emmanuel MD, Phone: [phone] :[phone] VITAMIN B12 264 pg/mL (Normal) Range: 254-1320 Comments: There is a low frequency possibility that high titers ofintrinsic blocking antibodies may not be completelyinactivated during the reaction pretreatment stepof this testing method. If test results are in conflictwith the clinical diagnosis, patient should be testedfor the presence of intrinsic factor blocking antibodies. : Amylase, Serum 92 U/L (Normal) Comments: PERFORMED BY: [address] [id number] Range: 31-124 :34 CBC With Differential/Platelet Comments: PERFORMED BY: [address] [id number] Baso (Absolute) 0.0 {x10E3/uL} (Normal) Range: 0.0-0.2 [...] 3.80-5.10 WBC 7.5 {x10E3/uL} (Normal) Range: 4.0-10.5 06-Znh-224062:34 Comp. Metabolic Panel (14) Comments: PERFORMED BY: [facility]6370 [facility] [id number] ALT (SGPT) 18 [iU]/L (Normal) Range: 0-40 [...] Serum 57 U/L (Normal) Comments: PERFORMED BY: [facility] [id number] 13:34 Range: 0-59 03-Feb-20109:00 GALLBLADDER Radiology Report See Note (Normal) Comments: Exam Number: [id number] CLINICAL:Epigastric pain and bloating. ABDOMINAL ULTRASOUND TECHNIQUE:Transabdominal [...] hydronephrosis,etiology indeterminate. Reported By: KATHRYN MUNOZ M.D. 7-Mlp-092807:19 CBC WITH MANUAL DIFF Comments: PATIENT NOT FASTINGPERFORMED BY: In[facility]6[address] [facility] HospitalMiTúAt[facility] Health [facility] [id number] Information: [id number] (89389) Baso (Absolute) 0.1 {x10E3/uL} (Normal) Range: 0.0-0.2 [...] 3.80-5.10 WBC 9.9 {x10E3/uL} (Normal) Range: 4.0-10.5 1-Cas-180757:19 METABOLIC PANEL, COMPREHENSIVE Comments: PATIENT NOT FASTINGPERFORMED BY: LabCoRutgers - [facility] Behavioral HealthCarePblcvi8954 [facility] [id number] (00354) ALT (SGPT) 19 [iU]/L (Normal) Range: 0-40 [...] Glucose, Serum 83 mg/dL (Normal) Range: 65-99 7-Ssp-295004:20 KNEE,4 OR MORE VIEWS (MT) Radiology Report See Note (Normal) Comments: Exam Number: [id number] CLINICAL:This is a 69-year-old female patient with [...] as discussed above. Reported By: TEO WAYNE :12 HgA1C , Office (21087) HgA1C , Office 7.1 % (Normal) Range: 4.6 - 7.1 :12 Blood Glucose , Office (83252) Blood Glucose , Office 129 (Normal) :45 COMP METABOLIC A/G 1.2 {RATIO} (Normal) Range: [...] CHOL 155 mg/dL (Normal) Comments: <200 mg/dL Cmrooejrw295-205 mg/dL Borderline>240 mg/dL High Risk :45 VIT D, 64499 42.5 ng/mL (Normal) Range: 32.0-100.0 Comments: Recent studies consider the lower limit of 32.0 ng/mL to tammy threshold for optimal health.Beyer . J Nutr. 2004;135(2):317-22.Performed at: [facility] - LabCo[address] [id number] Director: Tona Emmanuel MD :53 LIPID HDL [...] CHOL 128 mg/dL (Normal) Comments: <200 mg/dL Qpaqiigwd434-852 mg/dL Borderline>240 mg/dL High Risk :53 MICROALB:CRE UR MALB:CREAT 19.1 {mg/g_CRE} (Normal) MICROALBUMIN,UR 29.1 mg/L (Normal) UR CREAT 152.0 mg/dL (Normal) :53 TSH 0.93 {uIU/mL} (Normal) Range: 0.358-3.74 :53 VIT D, 17637 22.7 ng/mL (Abnormal) Range: 32.0-100.0 Comments: Recent studies consider the lower limit of 32.0 ng/mL to tammy threshold for optimal health.Beyer . J Nutr. 2004;135(2):317-22.Performed At: [facility] [address], [place] [id number] :53 VITAMIN B12 337 pg/mL (Normal) Range: 254-1320 :09 HgA1C , Office (84510) HgA1C , Office 7.1 % (Normal) Range: 4.6 - 7.1 :09 Blood Glucose , Office (88646) Blood Glucose , Office 108 (Normal) :33 KNEE,4 OR MORE VIEWS (MT) Radiology Report See Note (Normal) Comments: Exam Number: [id number] CLINICAL:Pain X-RAY EXAMINATION RIGHT KNEE TECHNIQUE:Three view(s) [...] Report See Note (Normal) Comments: Exam Number: [id number] CLINICAL:Pain X-RAY EXAMINATION: RIGHT TIBIA AND FIBULA [...] (MT) Radiology See Note Comments: Exam Number: [id number] CLINICAL:Pain X-RAY EXAMINATION: RIGHT FEMUR TECHNIQUE:Two views [...] Visualized femur. Reported By: RAYMOND ARRIAGA M.D. 7-Afw-953568:43 UNILAT DIA DIGITAL & CAD Radiology Report See Note (Normal) Comments: Exam Number: [id number] MAMMOGRAM, UNILATERAL LEFT DIAGNOSTIC DIGITAL AND CAD HISTORYAbnormal mammogram, left breast. TECHNIQUEFull field digital images were obtained in left true lateral, rolledcranio caudal, and spot mediolateral oblique and craniocaudalprojections. CAD images were reviewed. The current study is compared to the examinations of March 12, 2006,and June 21, 2009. FINDINGSThere is a xfsqjvio-oz-wcrnzj extent of fibroglandular parenchymapresent. There is no [...] wereal so examined with computer-aided detection software ([employer], [employer] Reported By: ANTHONY PALOMARES M.D. 83-Khb-129053:04 [facility] DIGITAL & CAD Radiology Report See Note (Normal) Comments: Exam Number: [id number] MAMMOGRAM, BILATERAL SCREENING DIGITAL AND CAD HISTORYRoutine [...] under theMammography Quality St andards Act of 1992 (MQSA). The mammograms werealso examined with computer- aided detection software ([employer], [address] Reported By: ANTHONY PALOMARES M.D. 96-Zlr-865565:03 DEXA BONE DENSITY STUDY () Radiology Report See Note (Normal) Comments: Exam Number: [id number] BONE DENSITOMETRY HISTORYOsteopenia. TECHNIQUE Bone densitometry of the lumbar spine and both hips is now beingperformed. The best criteria for evaluation of osteoporosis is theT-value, which represents the comparison of the patient's bone mass flako expected peak bone mass. For most patients, the mean T-value of R2usvhiam L4 is used to evaluate the lumbar spine. To evalua te the hip,the lower T-value of the femoral neck or total hip is used. FINDINGSIn this patient, the mean T-value of L1 through L4 is 0.3 which isnormal. Bone mineral density is measured at 18.3% greate r than [id number].Digital lateral view for evaluation of vertebral deformity [...] within normallimits. Reported By: ANTHONY PALOMARES M.D. 15-Zvm-916494:09 BRAIN/HEAD W/WO CONTRAST Radiology Report See Note (Normal) Comments: Exam Number: [id number] CLINICAL:69 year old female with altered mental [...] are present. Reported By: ANTHONY GRIER M.D. 77-Kwd-97566:02 CBCD,SMEAR DIFF CELLS COUNTED 100 (Normal) LYMPH [...] T PROT 6.6 g/dL (Normal) Range: 6.4-8.2 : IRON 59 ug/dL (Normal) Range: 50-170 :02 [...] mg/dL VLDL 32 mg/dL (Normal) Range: 5-40 92-Vwl-50320:02 MICROALB:CRE UR MALB:CREAT 38.4 {mg/g_CRE} (Abnormal) MICROALBUMIN,UR 47.5 mg/L (Normal) UR CREAT 123.4 mg/dL (Normal) 07-Jun-2009 VIT D,25 61109 19.7 ng/mL Range: 32.0-100.0 9:02 (Abnormal) Comments: Recent studies consider the lower limit of 32.0 ng/mL to tammy threshold for optimal health.Pepito ANNE. J Nutr. 2004;135(2):317- 22.Performed At: [address] [id number] 07-Jun-2009 VITAMIN B12 328 pg/mL (Normal) Range: 254-1320 9:02 11-Feb-2009 Homocyst(e)ine, Plasma 9.8 umol/L (Normal) Comments: PERFORMED BY: [employer] [id number] 14:28 Range: 0.0-15.0 11-Feb-2009 Methylmalonic Acid, 336 nmol/L (Normal) Comments: PERFORMED BY: [facility] [place] [address] [id number] 14:28 Serum Range: 73-376 Comments: The reference range for methylmalonic acid has been set at +3sd abovethe mean for healthy blood bank donors. In the clinical assessment ofpatients with megaloblastic anemias a cutoff of +3sd provides gr eaterspecificity in the diagnosis of the vitamin deficiency states,despite the sacrifice of some sensitivity. 11-Feb-2009 TSH 2.700 {uIU/mL} Comments: PERFORMED BY: [facility]81 [facility] [id number] 14:28 (Normal) Range: 0.450-4.500 11-Feb-2009 Vitamin B12 231 pg/mL (Normal) Comments: PERFORMED BY: [facility] Wqoimcyuui4[address] [facility] [id number] 14:28 Range: 211-911 0-Aqd-779644:09 HAND,MIN 3 VIEWS (MT) Radiology Report See Note (Normal) Comments: Exam Number: [id number] RIGHT WRIST CLINICAL DATAFell and injured the [...] osteoarthritis right hand. Reported By: FERNANDO TUCKER 4-Ctm-288330:09 WRIST,MIN 3 VIEWS ([place]) Radiology Report See Note (Normal) Comments: Exam Number: [id number] RIGHT WRIST CLINICAL DATAFell and injured the [...] PANEL, COMPREHENSIVE Comments: PATIENT WAS FASTINGPERFORMED BY: [facility]6370 [facility] [id number] ([id number]) A/G Ratio 1.9 (Normal) Range: 1.1-2.5 Albumin, [...] 141 mmol/L (Normal) Range: 135-145 :42 TSH (80248) Comments: PATIENT WAS FASTINGPERFORMED BY: [employer] [facility] [id number] TSH 4.980 {uIU/mL} (Abnormal) Range: 0.450-4.500 :42 MICROALBUMIN: CREATININE RATIO Comments: PATIENT WAS FASTINGPERFORMED BY: [employer] [facility] [id number] ([id number]) AND ([id number]) Creatinine, Urine 130.9 mg/dL (Normal) Range: 15.0-278.0 Microalb/Creat Ratio 66.4 {ug/mg_creat} (Abnormal) Range: 0.0-30.0 Microalbumin, Urine 86.9 ug/mL (Abnormal) Range: 0.0-17.0 :42 LIPID PANEL (30469) Comments: PATIENT WAS FASTINGPERFORMED BY: [facility]CareRhaais0800 [facility] [id number] Cholesterol, Total 148 mg/dL (Normal) Range: 100-199 HDL Cholesterol 42 mg/dL (Normal) Comments: According to ATP-III Guidelines, HDL-C >59 mg/dL is considered anegative risk factor for CHD. LDL Cholesterol Calc 78 mg/dL (Normal) Range: 0-99 LDL/HDL Ratio 1.9 {ratio_units} (Normal) Range: 0.0-3.2 Triglycerides 141 mg/dL (Normal) Range: 0-149 VLDL Cholesterol Priscilla 28 mg/dL (Normal) Range: 5-40 :42 CBC WITH MANUAL DIFF (44314) Comments: PATIENT WAS FASTINGClinical Information: ADD DRAW FEE [id number] ADD J 47359 PERFORMED BY: [employer] [address] [place] [address] [id number] Baso (Absolute) 0.1 {x10E3/uL} (Normal) Range: 0.0-0.2 [...] B-12 (CYANOCOBALAMIN) Comments: PATIENT WAS FASTINGPERFORMED BY: [facility] 7991270 [facility] [id number] ([id number]) Vitamin B12 232 pg/mL (Normal) Range: 211-911 4-Rhq-316831:06 Blood Glucose , Office (07192) Blood Glucose , Office 155 (Normal) :27 [...] 47-70 WBC 8.7 K/mm3 (Normal) Range: 4.4-11.0 33-Kdc-84147:27 COMP METABOLIC A/G 1.1 {RATIO} (Normal) Range: [...] :27 TSH 5.10 {uIU/mL} (Abnormal) Range: 0.34-4.82 09-Fsf-226193:06 TSH 2.34 {uIU/mL} (Normal) Range: 0.34-4.82 9-Djl-549723:27 HgA1C , Office (21045) Comments: done>Wf. HgA1C , Office 6.2 % (Normal) Range: 4.6 - 7.1 :27 Blood Glucose , Office (67587) Comments: done>Wf. Blood Glucose , Office 152 (Normal) 0-Ota-726061:55 CBCD BASO% 0.9 % (Normal) Range: 0-1 [...] 11.6-14.6 WBC 7.5 K/mm3 (Normal) Range: 4.4-11.0 8-Bkk-269064:55 COMP METABOLIC A/G 1.2 {RATIO} (Normal) Range: [...] for patient's is the eGFRmultiplied by 1.212. [facility] Laboratory uses the abbreviated Modification of Diet [...] Disease W/O Kidney Disease>/= 90 Stage One Usjzxn88 - 89 Stage Two Suspect Decrease d [...] T PROT 7.3 g/dL (Normal) Range: 6.4-8.2 :55 LIPID CHOL 287 mg/dL (Abnormal) Comments: <200 [...] 500 mg/dL VLDL 50 mg/dL (Abnormal) Range: -40 6-Sma-027366:55 MICROALB:CRE UR MALB:CREAT 28.3 {mg/g_CRE} (Normal) MICROALBUMIN,UR 41.7 mg/L (Normal) UR CREAT 147.6 mg/dL (Normal) 8-Ivf-331309:55 TSH 5.53 {uIU/mL} (Abnormal) Range: 0.34-4.82 24-Gyt-978572:25 TSH 0.16 {uIU/mL} (Abnormal) Range: 0.34-4.82 16-Wqw-979056:31 HgA1C , Office (03782) Comments: done km HgA1C , Office 6.5 % (Normal) Range: 4.6 - 7.1 :31 Blood Glucose , Office (75238) Comments: done Blood Glucose , Office 128 (Normal) :01 TSH 5.15 {uIU/mL} (Abnormal) Range: 0.34-4.82 :12 HgA1C , Office (82787) Comments: done HgA1C , Office 6.2 % (Normal) Range: 4.6 - 7.1 :12 Blood Glucose , Office (88306) Comments: done Blood Glucose , Office 187 [...] Serum 117 ng/mL (Normal) Comments: PERFORMED BY: [facility]CareMaxvvz0358 [facility] [id number] Range: 10-291 :33 Iron and TIBC Comments: PERFORMED BY: [facility]6370 [facility] [id number] Iron Bind.Cap.(TIBC) 304 ug/dL (Normal) Range: 250-450 Iron Saturation 26 % (Normal) Range: 15-55 Iron, Serum 78 ug/dL (Normal) Range: 35-155 UIBC 226 ug/dL (Normal) Range: 150-375 : Vitamin B12 412 pg/mL (Normal) Comments: PERFORMED BY: [employer] Yzvskb5376 [facility] [id number] Range: 211-911 :56 LIPID CHOL 222 [...] (Normal) Range: 6.4-8.2 :07 HgA1C , Office (92076) Comments: done km HgA1C , Office 5.9 % (Normal) Range: 4.6 - 7.1 3-Kug-814085:07 Blood Glucose , Office (93433) Comments: done km Blood Glucose , Office 132 (Normal) :08 [...] mg/dL (Abnormal) Range: 34-200 Comments: Performed At: [address] [id number] 42-Qtd-645010:08 IRON+TIBC IRON SATURATION 17.9 % (Normal) Range: 15.0-55.0 IRON, SERUM 52 ug/dL (Normal) Range: 35-150 TIBC 290 ug/dL (Normal) Range: 250-450 96-Xkv-753240:08 LDH 151 U/L (Normal) Range: 100-190 28-Vwu-728223:08 RETIC 1.77 % (Abnormal) Range: 0.5-1.5 :08 [...] mg/dL (Normal) Range: 34-200 Comments: Performed At: [address] [id number] :56 IRON+TIBC IRON SATURATION 17.1 % (Normal) [...] (Normal) Comments: Precautions*: NOT APPLICABLE Range: 1.5-2.2 PHOS 3.0 mg/dL (Normal) Comments: Precautions*: NOT APPLICABLE Range: 2.5-4.9 :05 PRO TIME Comments: Precautions*: NOT APPLICABLE INR 1.0 (Normal) PROTIME 13.0 s (Normal) Range: 11.7-13.3 : PTT 34.2 s (Normal) Comments: Precautions*: NOT APPLICABLE Range: 24.6-36.6 :15 CPK TOTAL 71 U/L (Normal) Comments: Precautions*: NOT APPLICABLEINDICATE CK '1', '2', '3', OR 'R' FOR RANDOM: 3 Range: 21-215 9-Wiz-808776:15 CPKMB 0.5 ng/mL (Normal) Comments: Precautions*: NOT [...] 1.49 INDETERMINANT > OR = 1.50 SUGGEST NV :05 CPK TOTAL 149 U/L (Normal) Comments: Precautions*: NOT APPLICABLEINDICATE CK '1', '2', '3', OR 'R' FOR RANDOM: 2 Range: :05 CPKMB 1.1 ng/mL (Normal) Comments: Precautions*: NOT APPLICABLEINDICATE CK '1', '2', '3', OR 'R' FOR RANDOM: 2 Range: 0.0-5.0 Comments: CK-MB and RI Interpretation MB Relative Index Non-AMI <or= 5 NA Indeterminate > 5 <or= 4 AMI > 5 > 4 :05 TROPONIN-I < 0.04 ng/mL (Normal) Comments: Precautions*: NOT APPLICABLEINDICATE CK '1', '2', '3', OR 'R' FOR RANDOM: 2 Comments: TROPONIN-I EXPECTED VALUES < 0.50 NEGATIVE 0.50 - 1.49 INDETERMINANT > OR = 1.50 SUGGEST NV :15 PRO TIME Comments: Precautions*: NOT APPLICABLE INR 1.0 (Normal) PROTIME 12.6 s (Normal) Range: 11.7-13.3 :15 TROPONIN-I < 0.04 ng/mL (Normal) Comments: Precautions*: NOT APPLICABLE Comments: TROPONIN-I EXPECTED VALUES < 0.50 NEGATIVE 0.50 - 1.49 INDETERMINANT > OR = 1.50 SUGGEST NV :00 BMP Comments: COMMENTS: FEARONPrecautions*: NOT APPLICABLEINDICATE [...] 1.49 INDETERMINANT > OR = 1.50 SUGGEST NV :48 HgA1C , Office (08864) HgA1C , Office 6.4 % (Normal) Range: 4.6 - 7.1 :48 Blood Glucose , Office (44008) Blood Glucose , Office 113 (Normal) Plan of Care Name Dates Details Instructions Other anxiety states : Follow up in 2 weeks Indication: Other anxiety states Bronchitis : Acute Bronchitis: Brief Version *: [...] Indication: Double vision Double vision : Reviewed Underwear Welter Letter Indication: Double vision Fatty liver : [...] BMI 36.0-36.9,adult Right hip pain : Reviewed Underwear Welter Letter Indication: Right hip pain Right hip [...] (monoclonal gammopathy of unknown significance) : Reviewed Underwear Welter Letter- stable and discharged from onc Indication: [...] Fall down steps, initial encounter : Reviewed Underwear Welter Letter Indication: Fall down steps, initial encounter [...] infarction, unspecified Cerebral infarction, unspecified : Reviewed Underwear Welter Letter Indication: Cerebral infarction, unspecified Upper respiratory [...] Planned Observations CBC, PLATELETS & AUT DIFF (42270)Indication: Other vitamin B12 deficiency anemia On: :17 Request TSH (15685)Indication: Abnormal TSH On: :38 Request T4, FREE (THYROXINE) (82824)Indication: Abnormal TSH On: :38 Request T3, FREE (TRIDOTHYRONINE) (99977)Indication: Abnormal TSH On: :38 Request ANTI-LIVER/KIDNEY MICROSOMAL ANTIBODY (73706)Indication: Elevated liver enzymes On: 74-Ynp-188107:34 Request TSH (38496)Indication: Abnormal TSH On: 99-Gtv-977816:31 Request T4, FREE (THYROXINE) (52889)Indication: Abnormal TSH On: 85-Nfk-385555:31 Request T3, FREE (TRIDOTHYRONINE) (01871)Indication: Abnormal TSH On: 70-Tkl-568861:31 Request BETA-2 MICROGLOBULIN (40612)Indication: Abnormal blood chemistry On: 06-Vpe-196631:08 Request Urinalysis, Office (33557)Indication: Urinary frequency On: 74-Zfm-501780:38 Request CBC WITH MANUAL DIFF (43065)Indication: Therapeutic drug monitoring On: :57 Request Metabolic Panel, Basic (17162)Indication: Therapeutic drug monitoring On: :57 Request Methymalonic Acid, Serum (31997)Indication: Vitamin B 12 deficiency On: 62-Njt-840534:51 Request CALCIFIDIOL (53323) VIT D 25Indication: Vitamin D deficiency, unspecified On: 65-Evo-407262:45 Request LIPID PANEL (41141)Indication: Other and unspecified hyperlipidemia On: 18-Gds-671718:45 Request CALCIFIDIOL (32896) VIT D 25Indication: Uncontrolled type II diabetes mellitus On: :46 Request TSH (28768)Indication: Uncontrolled type II diabetes mellitus On: :46 Request URINALYSIS, W/ MICRO (00336)Indication: Uncontrolled type II diabetes mellitus On: :46 Request MICROALBUMIN: CREATININE RATIO (07258) AND (72871)Indication: Uncontrolled type II diabetes mellitus On: :46 Request METABOLIC PANEL, COMPREHENSIVE (81318)Indication: Uncontrolled type II diabetes mellitus On: :46 Request LIPID PANEL (98954)Indication: Uncontrolled type II diabetes mellitus On: :45 Request CBC W/AUTO DIFF WBC (50533)Indication: Uncontrolled type II diabetes mellitus On: :45 Request Rapid Flu (37902 x 2)Indication: Flu-like symptoms On: 89-Uia-194776:12 Request VITAMIN B-12 (CYANOCOBALAMIN) (61362)Indication: Vitamin B 12 deficiency On: 46-Oin-501527:45 Request FECAL OCCULT- Tubes sent home (99062)Indication: Encounter for screening for malignant neoplasm of colon (Renamed from Special screening for malignant neoplasms, colon) On: 32-Zcq-224821:35 Request THYROXINE FREE (71989)Indication: Tachycardia On: 8-Nip-012352:04 Request FREE TRIDOTHYRONINE (T3) (20755)Indication: Tachycardia On: 5-Ohs-689891:04 Request TSH (THYROID STIMULATING HORMONE) (19242)Indication: Tachycardia On: 6-Zhu-224264:04 Request serum immunofixation (10610)Indication: MGUS (monoclonal gammopathy of unknown significance) On: 96-Fns-971379:14 Request urine immunofixation (27492)Indication: MGUS (monoclonal gammopathy of unknown significance) On: 97-Zzr-296401:14 Request serum free light chains (18992)Indication: MGUS (monoclonal gammopathy of unknown significance) On: 56-Wkl-235351:14 Request CBC W/AUTO DIFF WBC (65552)Indication: Diabetes mellitus type 2, controlled On: :13 Request MICROALBUMIN: CREATININE RATIO (10659) AND (58949)Indication: Diabetes mellitus type 2, controlled On: 32-Dqu-009493:13 Request METABOLIC PANEL, COMPREHENSIVE (21882)Indication: Diabetes mellitus type 2, controlled On: :13 Request LIPID PANEL (08807)Indication: Mixed hyperlipidemia On: 29-Tjb-002162:13 Request VITAMIN B-12 (CYANOCOBALAMIN) (67130)Indication: Other vitamin B12 deficiency anemia On: 26-Zdm-121034:12 Request CBC (AUTO) (29914)Indication: Other vitamin B12 deficiency anemia On: 75-Tcm-377327:12 Request Vitamin D Hydroxy (07153)Indication: Vitamin D deficiency, unspecified On: 60-Nde-476485:12 Request LIPID PANEL (14800)Indication: Mixed hyperlipidemia On: :42 Request METABOLIC PANEL, COMPREHENSIVE (22722)Indication: Benign essential hypertension (Renamed from Benign essential HTN) On: 6-Uaa-265887:41 Request MICROALBUMIN: CREATININE RATIO (97722) AND (68479)Indication: Benign essential hypertension (Renamed from Benign essential HTN) On: :41 Request SPEP (40100)Indication: Anemia, unspecified On: 25-Aib-807897:17 Request UPEP (36664)Indication: Anemia, unspecified On: 68-Ksm-141088:17 Request CBC W/AUTO DIFF WBC (44913)Indication: Iron (Fe) deficiency anemia On: 0-Iiz-299377:38 Request TSH (71977)Indication: Acquired hypothyroidism On: 3-Zxj-406248:38 Request TSH (66584)Indication: Acquired hypothyroidism On: :34 Request SPEP (50103)Indication: Iron (Fe) deficiency anemia On: :34 Request UPEP (04219)Indication: Iron (Fe) deficiency anemia On: :34 Request IRON BINDING CAPACITY (TIBC) (83817)Indication: Iron (Fe) deficiency anemia On: :34 Request FERRITIN (69256)Indication: Iron (Fe) deficiency anemia On: :34 Request IRON (95468)Indication: Iron (Fe) deficiency anemia On: :34 Request CBC, PLATELETS & AUT DIFF (85726)Indication: Other vitamin B12 deficiency anemia On: :34 Request VITAMIN B-12 (CYANOCOBALAMIN) (54946)Indication: Other vitamin B12 deficiency anemia On: :33 Request Hemoglobin Glyclated (HGB A1C) (03155)Indication: Diabetes mellitus type 2, controlled On: :33 Request CBC, PLATELETS & AUT DIFF (17114)Indication: Other vitamin B12 deficiency anemia On: :31 Request VITAMIN B-12 (CYANOCOBALAMIN) (89002)Indication: Other vitamin B12 deficiency anemia On: :30 Request METABOLIC PANEL, COMPREHENSIVE (50424)Indication: Benign essential hypertension (Renamed from Benign essential HTN) On: : Request LIPID PANEL (75918)Indication: Other and unspecified hyperlipidemia On: :30 Request Vitamin D Hydroxy (81815)Indication: Vitamin D deficiency, unspecified On: :30 Request POIAW-XKFLTUKLZOW-FJNNO (10689)Indication: Fatty liver On: :30 Request BYLQQ-HJXRPMVQKIT-BIIVR (22875)Indication: Fatty liver On: :24 Request LIPID PANEL (34115)Indication: Mixed hyperlipidemia On: :23 Request TSH (40857)Indication: Acquired hypothyroidism On: :23 Request MICROALBUMIN: CREATININE RATIO (26171) AND (30171)Indication: Diabetes mellitus type 2, controlled On: : Request METABOLIC PANEL, COMPREHENSIVE (09538)Indication: Diabetes mellitus type 2, controlled On: : Request Vitamin D Hydroxy (07920)Indication: Vitamin D deficiency, unspecified On: : Request CBC, PLATELETS & AUT DIFF (64466)Indication: Other vitamin B12 deficiency anemia On: :20 Request VITAMIN B-12 (CYANOCOBALAMIN) (82536)Indication: Other vitamin B12 deficiency anemia On: : Request Vitamin D Hydroxy (85878)Indication: Vitamin D deficiency, unspecified On: Request VITAMIN B-12 (CYANOCOBALAMIN) (74000)Indication: Other vitamin B12 deficiency anemia On: Request CBC W/AUTO DIFF WBC (88882)Indication: Other vitamin B12 deficiency anemia On: 37 Request TSH (41521)Indication: Acquired hypothyroidism On: :37 Request LIPID PANEL (11112)Indication: Mixed hyperlipidemia On: :37 Request CXITB-SOFPFETBHVF-UGNHS (51543)Indication: Fatty liver On: :08 Request PTT (Activated Partial Thromboplastin Time) (02997)Indication: Fatty liver On: : Request PT (Prothrobim Time) (94476)Indication: Fatty liver On: : Request Vitamin D Hydroxy (56926)Indication: Vitamin D deficiency, unspecified On: : Request VITAMIN B-12 (CYANOCOBALAMIN) (33677)Indication: Other vitamin B12 deficiency anemia On: : Request CBC W/AUTO DIFF WBC (17071)Indication: Diabetes mellitus type 2, controlled On: : Request METABOLIC PANEL, COMPREHENSIVE (72049)Indication: Diabetes mellitus type 2, controlled On: : Request LIPID PANEL (60127)Indication: Mixed hyperlipidemia On: : Request LIPID PANEL (80667)Indication: HYPERTENSION, NOS On: 3-Kaz-438451:40 Request CBC WITH MANUAL DIFF (55656)Indication: HYPERTENSION, NOS On: 3-Cez-830331:40 Request METABOLIC PANEL, COMPREHENSIVE (12809)Indication: HYPERTENSION, NOS On: 6-Vcv-658671:40 Request FECAL OCCULT- Tubes sent home (07868)Indication: Anemia, unspecified On: 13-Psh-260335:38 Request IRON (37977)Indication: Anemia, unspecified On: 46-Doi-605990:38 Request CBC WITH MANUAL DIFF (88052)Indication: HYPERTENSION, NOS On: 4-Iqm-299593:29 Request METABOLIC PANEL, COMPREHENSIVE (50262)Indication: Uncontrolled type II diabetes mellitus On: 3-Cig-029368:28 Request TSH (THYROID STIMULATING HORMONE) (71618)Indication: Acquired hypothyroidism On: 76-Nkp-181942:08 Request HgA1C , Office (50365)Indication: Diabetes mellitus type 2, controlled On: 74-Pxc-780556:55 Request VITAMIN B-12 (CYANOCOBALAMIN) (84331)Indication: Other vitamin B12 deficiency anemia On: 8-Eym-846216:17 Request LIPID PANEL (41187)Indication: Other and unspecified hyperlipidemia On: 9-Hht-383615:17 Request MICROALBUMIN: CREATININE RATIO (05142) AND (62960)Indication: Uncontrolled type II diabetes mellitus On: 7-Zub-010147:17 Request METABOLIC PANEL, COMPREHENSIVE (08552)Indication: Uncontrolled type II diabetes mellitus On: 9-Bdk-169446:17 Request HgA1C , Office (65923)Indication: Diabetes mellitus type 2, controlled On: 52-Ryc-202663:25 Request LIPID PANEL (18945)Indication: Other and unspecified hyperlipidemia On: 12-Xlc-125271:11 Request METABOLIC PANEL, COMPREHENSIVE (59155)Indication: Diabetes mellitus type 2, controlled On: 27-Eys-305929:11 Request MICROALBUMIN: CREATININE RATIO (29569) AND (60896)Indication: Diabetes mellitus type 2, controlled On: 30-Gyo-212748:11 Request VITAMIN B-12 (CYANOCOBALAMIN) (04483)Indication: Other vitamin B12 deficiency anemia On: 31-Sng-655398:11 Request CBC, PLATELETS & AUT DIFF (11730)Indication: Other vitamin B12 deficiency anemia On: 82-Ies-548531:11 Request Vitamin D Hydroxy (10763)Indication: Vitamin D deficiency, unspecified On: 97-Iql-247798:10 Request Blood Glucose , Office (85582)Indication: Diabetes mellitus type 2, controlled On: :29 Request LIPID PANEL (80793)Indication: Other and unspecified hyperlipidemia On: : Request Vitamin D Hydroxy (84479)Indication: Vitamin D deficiency, unspecified On: : Request VITAMIN B-12 (CYANOCOBALAMIN) (46713)Indication: Other vitamin B12 deficiency anemia On: : Request METABOLIC PANEL, COMPREHENSIVE (34578)Indication: Benign essential hypertension (Renamed from Benign essential HTN) On: : Request MICROALBUMIN: CREATININE RATIO (03765) AND (63609)Indication: Uncontrolled type II diabetes mellitus On: : Request Sputum Culture (62004)Indication: Chronic cough On: 6-Fyb-747549:58 Request RANI CULTURE-OTHER (44442)Indication: Sore throat On: 32-Ufs-553948:06 Request Urinalysis, Office (68903)Indication: Abnormal urine On: 9-Hss-192444:14 Request RANI CULTURE-OTHER (14056)Indication: Abnormal urine On: 6-Paz-329069:14 Request CCP ANTIBODY (14065)Indication: History of poliomyelitis (Renamed from H/O acute poliomyelitis) On: 3-Abq-875564:22 Request ANTI-Sm (ANTI [place] ANTIBODY) (15125) test code [id number]: History of poliomyelitis (Renamed from H/O acute poliomyelitis) On: 5-Rac-980489:22 Request RHEUMATOID FACTOR-QUANT (19766) test code 030450Xslqectapo: History of poliomyelitis (Renamed from H/O acute poliomyelitis) On: 6-Cdf-250983:22 Request Vitamin D Hydroxy (14236)Indication: Vitamin D deficiency, unspecified On: 65-Acn-098150:15 Request LIPID PANEL (79863)Indication: Other and unspecified hyperlipidemia On: 61-Rqq-480492:15 Request TSH (50908)Indication: Acquired hypothyroidism On: 30-Vav-290312:15 Request METABOLIC PANEL, COMPREHENSIVE (68710)Indication: Diabetes mellitus type 2, controlled On: 93-Dxz-692214:14 Request VITAMIN B-12 (CYANOCOBALAMIN) (53264)Indication: Other vitamin B12 deficiency anemia On: 70-Pyw-820979:08 Request MICROALBUMIN: CREATININE RATIO (41769) AND (42242)Indication: Uncontrolled type II diabetes mellitus On: 42-Zit-338904:30 Request METABOLIC PANEL, COMPREHENSIVE (18637)Indication: Uncontrolled type II diabetes mellitus On: 12-Qrs-257826:30 Request TSH (47573)Indication: Acquired hypothyroidism On: 34-Jgc-889264:30 Request Vitamin D Hydroxy (65831)Indication: Vitamin D deficiency, unspecified On: :30 Request LIPID PANEL (64826)Indication: Other and unspecified hyperlipidemia On: 95-Iju-958239:29 Request LIPID PANEL (80884)Indication: Other and unspecified hyperlipidemia On: 04-Njc-443239:51 Request TSH (69034)Indication: Acquired hypothyroidism On: 49-Lao-769330:50 Request Vitamin D Hydroxy (11672)Indication: Vitamin D deficiency, unspecified On: 81-Szf-498253:50 Request CBC WITH MANUAL DIFF (96903)Indication: Diabetes mellitus type 2, controlled On: 94-Uup-206431:50 Request METABOLIC PANEL, COMPREHENSIVE (84720)Indication: Diabetes mellitus type 2, controlled On: 70-Vpv-579820:50 Request Vitamin D Hydroxy (26425)Indication: Vitamin D deficiency, unspecified On: 38-Vwv-722835:44 Request VITAMIN B-12 (CYANOCOBALAMIN) (41150)Indication: Other vitamin B12 deficiency anemia On: 57-Vxg-922672:44 Request CBC WITH MANUAL DIFF ([id number])Indication: Anemia, unspecified On: 08-Fse-726192:43 Request METABOLIC PANEL, COMPREHENSIVE (30602)Indication: Diabetes mellitus type 2, controlled On: 55-Iuz-342454:43 Request MICROALBUMIN: CREATININE RATIO (46758) AND (26452)Indication: Diabetes mellitus type 2, controlled On: 62-Bxh-744621:43 Request LIPID PANEL (21700)Indication: Other and unspecified hyperlipidemia On: 94-Lbt-452892:43 Request TSH (28017)Indication: Acquired hypothyroidism On: 34-Xqx-313159:43 Request Vitamin D Hydroxy (68096)Indication: Vitamin D deficiency, unspecified On: 5-Bzs-041054: Request LIPID PANEL (53131)Indication: Other and unspecified hyperlipidemia On: : Request CBC WITH MANUAL DIFF ([id number])Indication: Diabetes mellitus type 2, controlled On: : Request METABOLIC PANEL, COMPREHENSIVE (33697)Indication: Diabetes mellitus type 2, controlled On: 2-Bzp-463300: Request VITAMIN B-12 (CYANOCOBALAMIN) (95895)Indication: Other vitamin B12 deficiency anemia On: 5-Oov-733534:36 Request Comments: Lot #[id number]-left deltoidDose-1 mlgiven by: Dani Rivera LPN LIPID PANEL (01048)Indication: Other and unspecified hyperlipidemia On: :28 Request METABOLIC PANEL, COMPREHENSIVE (77764)Indication: Uncontrolled type II diabetes mellitus On: :28 Request TSH (53317)Indication: Acquired hypothyroidism On: :28 Request Vitamin D Hydroxy (04263)Indication: Vitamin D deficiency, unspecified On: : Request CBC WITH MANUAL DIFF (17986)Indication: Anemia, unspecified On: : Request CBC WITH MANUAL DIFF (90188)Indication: Other vitamin B12 deficiency anemia On: :20 Request Blood Glucose , Office (98551)Indication: Uncontrolled type II diabetes mellitus On: :15 Request Comments: 149 HgA1C , Office (94829)Indication: Uncontrolled type II diabetes mellitus On: :15 Request METABOLIC PANEL, COMPREHENSIVE (48023)Indication: Other and unspecified hyperlipidemia On: :22 Request LIPID PANEL (13050)Indication: Other and unspecified hyperlipidemia On: :22 Request TSH (46530)Indication: Acquired hypothyroidism On: :22 Request HEMOGLOBIN GLYCLATED (HGB A1C) (18639)Indication: Abnormal glucose tolerance test On: 05-Yqm-938391:20 Request VITAMIN B-12 (CYANOCOBALAMIN) (78715)Indication: Other vitamin B12 deficiency anemia On: 59-Soe-563980:17 Request Vitamin D Hydroxy (69126)Indication: Vitamin D deficiency, unspecified On: 2-Cpa-574326:21 Request VITAMIN B-12 (CYANOCOBALAMIN) (46889)Indication: Other vitamin B12 deficiency anemia On: :20 Request LIPID PANEL (19528)Indication: Abnormal glucose tolerance test On: :20 Request CBC WITH MANUAL DIFF (31578)Indication: Abnormal glucose tolerance test On: :20 Request METABOLIC PANEL, COMPREHENSIVE (80517)Indication: Abnormal glucose tolerance test On: :20 Request METABOLIC PANEL, COMPREHENSIVE (19465)Indication: Abnormal glucose tolerance test On: 0-Vae-944175:59 Request CBC WITH MANUAL DIFF (28816)Indication: Abnormal glucose tolerance test On: 7-Xaj-681738:59 Request Vitamin D Hydroxy (73749)Indication: Vitamin D deficiency, unspecified On: 5-Xwu-153315:59 Request VITAMIN B-12 (CYANOCOBALAMIN) (71853)Indication: Other vitamin B12 deficiency anemia On: 7-Lqx-744759:59 Request TSH (45914)Indication: Acquired hypothyroidism On: 9-Nsr-902341:58 Request LIPID PANEL (72725)Indication: Other and unspecified hyperlipidemia On: 3-Zkc-244744:58 Request CCP ANTIBODY (67255)Indication: Pain in unspecified joint On: 30-Iwu-769270:22 Request VITAMIN B-12 (CYANOCOBALAMIN) (26807)Indication: Other vitamin B12 deficiency anemia On: 1-Yiw-489941:10 Request Vitamin D Hydroxy (94196)Indication: Vitamin D deficiency, unspecified On: 5-Zgt-357501:10 Request MICROALBUMIN: CREATININE RATIO (77694) AND (75743)Indication: Uncontrolled type II diabetes mellitus On: 7-Nts-984067:10 Request CBC WITH MANUAL DIFF (98925)Indication: Uncontrolled type II diabetes mellitus On: 4-Och-982796:10 Request METABOLIC PANEL, COMPREHENSIVE (57402)Indication: Benign essential hypertension (Renamed from Benign essential HTN) On: 7-Iun-235679:09 Request LIPID PANEL (59538)Indication: Other and unspecified hyperlipidemia On: 8-Auj-939933:09 Request TSH ([id number])Indication: Acquired hypothyroidism On: 2-Vau-108162:39 Request VITAMIN B-12 (CYANOCOBALAMIN) (88256)Indication: Other vitamin B12 deficiency anemia On: 7-Lgm-606639:37 Request HEPATIC FUNCTION PANEL (44001)Indication: Other and unspecified hyperlipidemia On: :36 Request LIPID PANEL (88875)Indication: Other and unspecified hyperlipidemia On: :36 Request Vitamin D Hydroxy (83264)Indication: Vitamin D deficiency, unspecified On: :36 Request METABOLIC PANEL, COMPREHENSIVE (65741)Indication: Benign essential hypertension (Renamed from Benign essential HTN) On: 5-Lvk-547129:35 Request LIPID PANEL (20674)Indication: Other and unspecified hyperlipidemia On: 1-Ntz-885130:35 Request Vitamin D Hydroxy (61306)Indication: Vitamin D deficiency, unspecified On: 0-Wfr-150969:30 Request Vitamin D Hydroxy (04119)Indication: Vitamin D deficiency, unspecified On: 28-Bpl-174761:10 Request MICROALBUMIN: CREATININE RATIO (11575) AND (60517)Indication: Uncontrolled type II diabetes mellitus On: 72-Eoj-865427:07 Request LIPID PANEL (68563)Indication: Other and unspecified hyperlipidemia On: 06-Wuw-584260:07 Request TSH (69138)Indication: Acquired hypothyroidism On: 76-Msx-483186:07 Request VITAMIN B-12 (CYANOCOBALAMIN) (40451)Indication: Other vitamin B12 deficiency anemia On: 07-Pyj-722013:42 Request Vitamin D Hydroxy (85890)Indication: Vitamin D deficiency, unspecified On: 92-Ftq-540836:50 Request IRON BINDING CAPACITY (TIBC) (68394)Indication: Iron (Fe) deficiency anemia On: 95-Pem-889801:50 Request LDH (LD) (LACTATE DEHYDROGENASE) (06654)Indication: Iron (Fe) deficiency anemia On: 28-Kbn-185757:50 Request FERRITIN (82199)Indication: Iron (Fe) deficiency anemia On: 23-Ygt-596036:50 Request IRON ([id number])Indication: Iron (Fe) deficiency anemia On: :50 Request CBC WITH MANUAL DIFF (04292)Indication: Iron (Fe) deficiency anemia On: 79-Lif-828849:50 Request HEPATIC FUNCTION PANEL (04764)Indication: Other and unspecified hyperlipidemia On: :44 Request LIPID PANEL (37306)Indication: Other and unspecified hyperlipidemia On: :44 Request CBC WITH MANUAL DIFF (08248)Indication: Other vitamin B12 deficiency anemia On: :54 Request MICROALBUMIN: CREATININE RATIO (15571) AND (81853)Indication: Glucose intolerance (no malabsorption) On: :54 Request METABOLIC PANEL, COMPREHENSIVE (99118)Indication: HYPERTENSION, NOS On: :54 Request LIPID PANEL (79356)Indication: Other and unspecified hyperlipidemia On: :53 Request VITAMIN B-12 (CYANOCOBALAMIN) (04420)Indication: Other vitamin B12 deficiency anemia On: :53 Request IRON (59694)Indication: Iron (Fe) deficiency anemia On: :53 Request Vitamin D Hydroxy (12341)Indication: Osteopenia On: :49 Request Methylmalonic acid, serum 94619Jqrtdvtivu: Other vitamin B12 deficiency anemia On: :03 Request VITAMIN B-12 (CYANOCOBALAMIN) (59974)Indication: Other vitamin B12 deficiency anemia On: :03 Request TSH (28130)Indication: Acquired hypothyroidism On: :03 Request HgA1C , Office (25568)Indication: Abnormal glucose tolerance test On: 3-Faj-916067:06 Request TSH (90052)Indication: Acquired hypothyroidism On: :35 Request LIPID PANEL ([id number])Indication: Other and unspecified hyperlipidemia On: :35 Request METABOLIC PANEL, COMPREHENSIVE (06984)Indication: SOB (shortness of breath) on exertion On: :34 Request CBC WITH MANUAL DIFF ([id number])Indication: SOB (shortness of breath) on exertion On: :34 Request TSH (79306)Indication: Acquired hypothyroidism On: 4-Ztp-206446:46 Request Comments: do in 6 weeks TSH (83124)Indication: Acquired hypothyroidism On: 78-Eam-150299:15 Request Comments: DO IN 6 WEEKS WITH MEDICATION CHANGE TSH (22935)Indication: Other malaise and fatigue On: 38-Ahm-31875:49 Request Iron Binding Capacity (TIBC) (02619)Indication: Iron (Fe) deficiency anemia On: :43 Request Ferritin (25611)Indication: Iron (Fe) deficiency anemia On: :43 Request Iron (13928)Indication: Iron (Fe) deficiency anemia On: :43 Request HEPATIC FUNCTION PANEL (20212)Indication: Mixed hyperlipidemia On: :42 Request LIPID PANEL (07600)Indication: Mixed hyperlipidemia On: :42 Request Comments: do in 3 months HEPATIC FUNCTION PANEL (19839)Indication: Mixed hyperlipidemia On: 7-Jop-015193:11 Request LIPID PANEL (05258)Indication: Mixed hyperlipidemia On: 1-Hhg-834358:11 Request Comments: do in 3 mo TSH (97726)Indication: Acquired hypothyroidism On: :23 Request VITAMIN B-12 (CYANOCOBALAMIN) (94299)Indication: Anemia, unspecified On: :23 Request LDH (LD) (LACTATE DEHYDROGENASE) (88742)Indication: Anemia, unspecified On: :23 Request RETICULOCYTE COUNT MANUL ([id number])Indication: Anemia, unspecified On: :23 Request IRON BINDING CAPACITY (TIBC) (82509)Indication: Anemia, unspecified On: :23 Request IRON ([id number])Indication: Anemia, unspecified On: :23 Request FOLIC ACID SERUM (81343)Indication: Anemia, unspecified On: :23 Request HAPTOGLOBIN (27202)Indication: Anemia, unspecified On: :23 Request FERRITIN (50618)Indication: Anemia, unspecified On: :23 Request CBC, PLATELETS & AUT DIFF (25572)Indication: Anemia, unspecified On: 20-Owf-169871:23 Request HgA1C , Office (23197)Indication: Abnormal glucose tolerance test On: 56-Xqa-250422:03 Request CBC with manual diff ([id number])Indication: Anemia, unspecified On: 32-Jgg-771345:49 Request HgA1C , Office (25234)Indication: Abnormal glucose tolerance test On: 10-Ykl-353003:30 Request Comments: controlled URINALYSIS W/O MICRO (33840)Indication: HYPERTENSION, NOS On: 88-Vfz-826915:03 Request TSH (66801)Indication: Acquired hypothyroidism On: 94-Cec-659126:03 Request MICROALBUMIN URINE QUANT (63817)Indication: HYPERTENSION, NOS On: :03 Request METABOLIC PANEL, COMPREHENSIVE (09513)Indication: HYPERTENSION, NOS On: :03 Request LIPID PANEL (40344)Indication: HYPERTENSION, NOS On: :03 Request CBC WITH MANUAL DIFF ([id number])Indication: HYPERTENSION, NOS On: 96-Hli-505847:03 Request Planned Encounters Medical; 2 Week FU - On: 31-Jul-2018 12:00 [facility] Melanie KEBEDE, Doris Navarro DO, Doris Jay DO Planned Procedures Radiology - Lumbar SpineBy: Melanie On: 24-Jun-2018 Intent Doris KEBEDE DO, Doris Jay DO Aerosol Treatment ([id number])By: On: 14-Apr-2018 Intent Thelma Sofia Comments: Lungs clear after albuterol aerosol treatment Ultrasound - LiverBy: Melanie KEBEDE, On: 21-Nov-2017 Intent Doris Jay DO, DO, Kathleen B 12 Injection, 1000 mcg (J3420)By: On: 21-Nov-2017 Intent Doris Navarro DO, DO, Comments: Vitamin b12 1000mcg injection lot:[id number]:04/2019L DELT IMpt tolerated well CARYN DUMONT DO, Kathleen PHYSICAL THERAPY (72840)By: [place] On: 28-Oct-2017 Intent Thelma Radiology - Hip - LeftBy: [place], On: 28-Oct-2017 Intent Thelma Aerosol Treatment (06688)By: Melanie On: 07-Aug-2017 Intent DO, Doris Melanie DO, Doris Comments: more a/e less nois e Melanie DO Doris Spirometry (64185)By: Melanie KEBEDE, On: 07-Aug-2017 Intent Doris Melanie DO, Doris Melanie Comments: really poor techniq DO, Doris Radiology - Chest- PA and LatBy: On: 07-Aug-2017 Intent Melanie DO, Doris Melanie DO, Doris Melanie DO, Doris IV Needle placement (20623)By: On: 02-Aug-2017 Intent Melanie DO, Doris Melanie DO, Doris Melanie DO, Doris INFUSION, NORMAL SALINE SOLUTION , On: 02-Aug-2017 Intent 1000 CC (Special Coverage Comments: lot:[id number]:02-26-2019rte:right anticubdose:1000ml given by:david Snow, TRACTOR TRAILER DRIVER Instructions Apply. See MCM: 2048) (J7030)By: Melanie KEBEDE, Doris Melanie DO, Doris Melanie DO, Doris INFUSION, NORMAL SALINE SOLUTION , On: 01-Aug-2017 Intent 1000 CC (Special Coverage Comments: lot:[id number]:02-26-2019rte:IV left anticubdose:1000ml NS given by:david matthewsER, TRACTOR TRAILER DRIVER Instructions Apply. See MCM: 204) (J7030)By: Marcia Britton Aerosol Treatment (10865)By: Melanie On: 01-Aug-2017 Intent DO, Doris Melanie DO, Doris Comments: more a/e less junky sounding Melanie DO Doris PNEUM VAC ADLT/IMUMNOSPR, SBC/INTRM On: 25-Apr-2017 Intent (04606)By: Doris Navarro DO Comments: 0.5cc given sq lt arm lot [id number] exp 09/05/18 Melanie DO, Doris Melanie DO, Doris INTENSIVE BEHAVIORAL THERAPY TO On: 25-Apr-2017 Intent REDUCE CARDIOVASCULAR DISEASE RISK, INDIVIDUAL, QQMW-OC-AEEZ, ANNUAL, 15 MINUTES (G0446)By: Melanie DO, Doris Melanie DO, Doris Melanie DO, Doris NSLE-BO-NKJC BEHAVIORAL COUNSELING On: 25-Apr-2017 Intent FOR OBESITY, 15 MINUTES (G0447)By: Melanie , Doris Melanie DO, Doris Melanie DO, Doris B 12 Injection, 1000 mcg (J3420)By: On: 25-Apr-2017 Intent Melanie DO, Doris Melanie DO, Comments: 1 ml given lt arm lot [id number] exp 03/15 Doris Melanie DO, Doris ELECTROCARDIOGRAM, COMPLETE (ECG) On: 25-Apr-2017 Intent (63423)By: Doris Navarro DO Comments: nsr no acute chg Melanie DO, Doris Melanie DO, Doris B 12 Injection, 1000 mcg (J3420)By: On: 14-Mar-2017 Intent Melanie DO, Doris Melanie DO, Comments: lot [id number] 09/16left [id number] mcgas, TRACTOR TRAILER DRIVER Doris Melanie DO, Doris B 12 Injection, 1000 mcg (J3420)By: On: 31-Dec-2016 Intent Melanie DO, Doris Melanie DO, Comments: [id number], TRACTOR TRAILER DRIVER Doris Melanie DO, Doris B 12 Injection, 1000 mcg (J3420)By: On: 20-Sep-2016 Intent Melanie DO, Doris Melanie DO, Comments: lot:[id number]: 11/13Dose: 1,000 mcgSite: R dltdLocation; IMby:, TRACTOR TRAILER DRIVER Doris Melanie DO, Doris Solu- Medrol Injection, 125mg On: 20-Aug-2016 Intent (J2930)By: Doris Navarro DO Comments: lot: [id number]: 01/14site/route: LGM/IMamt:2mLVIS signed when applicableChelsea, OCCUPATIONAL PHYSICIAN Melanie DO, Doris Melanie DO, Doris Aerosol Treatment (77516)By: Melanie On: 20-Aug-2016 Intent DO, Doris Melanie DO, Doris Comments: albulterol 0.83%relistedned nad more a/e less noise Melanie DO, Doris B 12 Injection, 1000 mcg (J3420)By: On: 20-Aug-2016 Intent Melanie DO, Doris Melanie DO, Comments: lot: [id number]: ite/route: L del/IMamt: 1mLVIS signed when applicableChelsea, [facility] Doris Melanie DO, Doris Spirometry (28452)By: Melanie DO, On: 16-Aug-2016 Intent Doris Melanie DO, Doris Melanie Comments: ok stable - DO, Doris Aerosol Treatment (00482)By: Melanie On: 16-Aug-2016 Intent DO, Doris Melanie DO, Doris Comments: albulterol 0.83%more a.e stil some niose in RUL -- junky and easy to cough Melanie DO, Doris Solu- Medrol Injection, 125mg On: 16-Aug-2016 Intent (J2930)By: Melanie DO Doris Comments: lot [id number] mgright gm, IMas TRACTOR TRAILER DRIVER Melanie DO, Doris Melanie DO, Doris B 12 Injection, 1000 mcg (J3420)By: On: 20-Jul-2016 Intent Melanie DO, Doris Melanie DO, Comments: B12lot:6202exp:ite:rt deltroute:IMdose:1mlD.HAY Valentin Doris Melanie DO, Doris Solu- Medrol Injection, 125mg On: 20-Jul-2016 Intent (J2930)By: Melanie DOTaliDoris Comments: lot: [id number]: 01/14site/route: RGM/IMamt: 2mLVIS signed when applicableChels, [facility] Melanie DO, Doris Melanie DO, Doris Aerosol Treatment (73648)By: Melanie On: 20-Jul-2016 Intent DO, Doris Melanie DO, Doris Comments: less wheeze good a/e- less irritability with breathing Melanie DO Doris Radiology - Chest- PA and LatBy: On: 20-Jul-2016 Intent Melanie DO, Dorsi Melanie DO, Doris Melanie DO, Doris Spirometry (31383)By: Melanie KEBEDE, On: 20-Jul-2016 Intent Doris Melanie DO, Doris Melanie Comments: mild restriction =- poor curve and technique DO, Doris ELECTROCARDIOGRAM, COMPLETE (ECG) On: 20-Jul-2016 Intent (29579)By: Melanie DOJdDoris Comments: sinus braden no acute chg Melanie DO, Doris Melanie DO, Doris B 12 Injection, 1000 mcg (J3420)By: On: 29-May-2016 Intent Melanie DO, Doris Melanie DO, Comments: Lot:[id number]:11/13Dose:1mlRoute:IMSite:r armGiven By:SAADIA signed Doris Melanie DO, Doris Flu Vaccine (Quadrivalent) 29174Zp: On: 29-May-2016 Intent Melanie DO, Doris Melanie DO, Comments: Lot:[id number]:01/25/17Dose:0.5mLRoute:IMSite:L DltdGiven By:SAADIA signed Doris Melanie DO, Doris B 12 Injection, 1000 mcg (J3420)By: On: 21-May-2016 Intent Melanie DO, Doris Melanie DO, Doris Melanie DO, Doris B 12 Injection, 1000 mcg (J3420)By: On: 18-May-2016 Intent Melanie DO, Doris Melanie DO, Comments: B12lot:6185exp:ite:rt deltroute:IMdose:1mlD.HAY Valentin Doris Melanie DO, Doris B 12 Injection, 1000 mcg (J3420)By: On: 11-May-2016 Intent Melanie DO, Doris Melanie DO, Comments: lot [id number] mcgleft dltdaCARYN milligan Doris Melanie DO, Doris B 12 Injection, 1000 mcg (J3420)By: On: 08-May-2016 Intent Melanie DO, Doris Melanie DO, Comments: B12lot:6185exp:ite:rt deltroute:IMdose:1mlD.HAY Valentin Doris Melanie DO, Doris B 12 Injection, 1000 mcg (J3420)By: On: 04-May-2016 Intent Visit, Nurse Comments: given - see flowsheet B 12 Injection, 1000 mcg (J3420)By: On: 27-Apr-2016 Intent Melanie DO, Doris Melanie DO, Comments: Lot:[id number]:11/13Dose:1mlRoute:IMSite:l armGiven By:SAADIA signed Doris Melanie DO, Doris B 12 Injection, 1000 mcg (J3420)By: On: 20-Apr-2016 Intent Melanie DO, Doris Melanie DO, Comments: lot: [id number]: ite/route: R del/IMamt: 1mLVIS signed when applicableChelsyaquelin, OCCUPATIONAL PHYSICIAN Doris Melanie DO, Doris B 12 Injection, 1000 mcg (J3420)By: On: 13-Apr-2016 Intent Mckinley Valentin Comments: B12lot:6185exp:ite:lt deltroute:IMdose:1mlD.HAY Valentin INTENSIVE BEHAVIORAL THERAPY TO On: 09-Apr-2016 Intent REDUCE CARDIOVASCULAR DISEASE RISK, INDIVIDUAL, QOJQ-TW-GPZQ, ANNUAL, 15 MINUTES (G0446)By: Melanie DO, Doris Melanie DO, Doris Melanie DO, Doris JEQA-VB-XOOC BEHAVIORAL COUNSELING On: 09-Apr-2016 Intent FOR OBESITY, 15 MINUTES (G0447)By: Melanie DO, Doris Melanie DO, Doris Melanie DO, Doris MAMMOGRAM, SCREENING, BOTH BREAST On: 09-Apr-2016 Intent (15553)By: Melanie DO, Doris Melanie DO, Doris Melanie DO, Doris DEXA SCAN AXIAL SKELETON (01619)By: On: 09-Apr-2016 Intent Melanie DO, Doris Melanie [...] DO, Doris Melanie DO, Comments: Lot:[id number]:12/13Dose:1mlRoute:IMSite:r armGiven By:MarisolKMVIS signed Doris Melanie DO, Doris B 12 Injection, 1000 mcg (J3420)By: On: 07-Feb-2016 Intent Melanie DO, Doris Melanie DO, Comments: Lot:[id number]:10/2017Dose:1mlRoute:IMSite:l armGiven By:ELENAVIS signed Doris Melanie DO, Doris B 12 Injection, 1000 mcg (J3420)By: On: 26-Jan-2016 Intent Melanie DO, Doris Melanie DO, Comments: B12lot:5200exp:05/14site:lt deltroute:IMdose:1mlD.HAY Valentin Doris Navarro DO, Doris Echo CompleteBy: Fast DO, Maggie [...] Comments: Lot:[id number]:04/14Dose:1mlRoute:IMSite:l armGiven By:SAADIA signed Aerosol Treatment (33367)By: Alexy On: 03-Aug-2015 Intent DO, Maggie A B 12 Injection, 1000 mcg (J3420)By: On: 17-May-2015 Intent Fast DO Maggie A Comments: Lot:[id number]:11/12Dose:1mlRoute:IMSite:l armGiven By:SAADIA signed Flu Vaccine (Quadrivalent) 35861Bj: On: 17-May-2015 Intent Fast DO, Maggie A Comments: lot [id number]: 01/26/2016site/route L sol, IMamt 0.5mlVIS and ABN signed when applicableChelsea, CMAFM4 ADMINISTRATION OF INFLUENZA VIRUS On: 17-May-2015 Intent VACCINE (G0008)By: Alexy KEBEDE, Maggie A B 12 Injection, 1000 mcg (J3420)By: On: 15-Feb-2015 Intent Kanika Georges Comments: Lot:[id number]:11.16Route:IMSite:R deltoidDose: 1 mLgiven by: Kanika Georges CMA DANIEL (Ankle Brachial Index) On: 08-Feb-2015 Intent (53651)By: Alexy DO Maggie A Radiology - Lumbar SpineBy: Alexy KEBEDE, On: 08-Feb-2015 Intent Maggie A Ultrasound - ThyroidBy: Alexy KEBEDE, On: 09-Nov-2014 Intent Maggie A B 12 Injection, 1000 mcg (J3420)By: On: 09-Nov-2014 Intent Alexy DO Maggie A Comments: lot [id number] mcgleft dltdIMasrini, CARYN Radiology - Chest- PA and LatBy: On: 13-Sep-2014 Intent Alexy DOCameliaa A Comments: call stat Pulse Oximetry (31159)By: Alexy KEBEDE, On: 13-Sep-2014 Intent Maggie A Comments: 97% Inhaler Demonstration (12632)By: On: 07-Sep-2014 Intent Kimberley Loyd CNP Radiology - Chest- PA and LatBy: On: 14-Jul-2014 Intent Maggie Tracey DO A Comments: call rsults Spirometry (17098)By: Alexy KEBEDE, On: 14-Jul-2014 Intent Maggie A Comments: good effort and curve mild rest /obst Prevnar 13 (64818)By: Alexy KEBEDE, On: 30-Jun-2014 Intent Maggie A Comments: lot [id number] 09/2015location L armroute imgiven by - msmithVIS and/or ABN signed MAMMOGRAM, SCREENING, BOTH BREAST On: 14-Apr-2014 Intent (21398)By: Maggie Tracey DO B 12 Injection, 1000 mcg (J3420)By: On: 14-Apr-2014 Intent Alexy KEBEDE Maggie A Comments: Lot #:[id number] date:mount given:1mlRoute: IMSite given: left deltoidGiven by: HAY Zavala Cartoid DopplerBy: Alexy KEBEDE Maggie A On: 14-Apr-2014 Intent Eprescribed prescriptions (G8553)By: On: 07-Oct-2013 Intent Maggie Tracey DO A DXA, BONE DENSITY, AXIAL SKELETON On: 20-Jul-2013 Intent (22826)By: Maggie Tracey DO Comments: aug Pelvic and Breast, Medicare On: 20-Jul-2013 Intent (G0101)By: Maggie Tracye DO Cartoid DopplerBy: Maggie Tracey DO A On: 07-Jul-2013 Intent Eprescribed prescriptions (G8553)By: On: 07-Jul-2013 Intent Raiza Ortiz FLU VAC, SPLIT, >3 YEARS, INTRAMUSC On: 04-May-2013 Intent (75028)By: Maritza Cantor Comments: lot [id number] 2014site/route L sol, IMamt 0.5mlVIS and ABN signed when applicableChelsea, OCCUPATIONAL PHYSICIAN ADMINISTRATION OF INFLUENZA VIRUS On: 04-May-2013 Intent VACCINE (G0008)By: Maritza Cantor Radiology - Hip - LeftBy: Alexy KEBEDE, On: 07-Apr-2013 Intent Maggie A Eprescribed prescriptions (G8553)By: On: 07-Apr-2013 Intent Raiza Ortiz Eprescribed prescriptions (G8553)By: On: 05-Jan-2013 Intent Raiza Ortiz Spirometry (31663)By: Alexy KEBEDE, On: 01-Dec-2012 Intent Maggie A Comments: good effort and curve normal Radiology - Chest- PA and LatBy: On: 01-Dec-2012 Intent Maggie Tracey DO Comments: stat call wet read Eprescribed prescriptions (G8553)By: On: 01-Dec-2012 Intent Raiza Ortiz Pulse Oximetry (43849)By: Angel, On: 01-Dec-2012 Intent Raiza Comments: 98% Eprescribed prescriptions (G8553)By: On: 27-Nov-2012 Intent Melanie DO, Doris Melanie DO, Doris Melanie DO, Doris MAMMOGRAM, SCREENING, BOTH BREASTS On: 29-Sep-2012 Intent (90031)By: Maggie Tracey DO EKG (16991)By: Raiza Ortiz On: 29-Sep-2012 Intent Comments: ekg- 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 axis and no acute st t wave changes Eprescribed prescriptions (G8553)By: On: 29-Sep-2012 Intent Raiza Ortiz Eprescribed prescriptions (G8553)By: On: 03-Sep-2012 Intent Raiza Ortiz Eprescribed prescriptions (G8553)By: On: 30-Jul-2012 Intent Raiza Ortiz B 12 Injection, 1000 mcg (J3420)By: On: 23-Jun-2012 Intent Alexy KEBEDE Maggie A Comments: Lot:[id number]:Dose:1mlRoute:IMSite:L armGiven By:SAADIA signed Eprescribed prescriptions (G8553)By: On: 23-Jun-2012 Intent Raiza Ortiz 12 Injection, 1000 mcg (J3420)By: On: 25-Mar-2012 Intent Maricruz Rivera LPN Comments: Lot #[id number]-06/10Site-right deltoidDose-1 mlgiven by: Dani Rivera LPN Eprescribed prescriptions (G8553)By: On: 25-Mar-2012 Intent Maggie Tracey DO A FLU VAC, SPLIT, >3 YEARS, INTRAMUSC On: 25-Mar-2012 Intent (80058)By: Patsy Leslie LPN Comments: Lot/Exp: [id number], 12/2011Given in L Dltd, IMPrefilled SyringeBy CARYN Garner ADMINISTRATION OF INFLUENZA VIRUS On: 25-Mar-2012 Intent VACCINE (G0008)By: Patsy Leslie LPN Echo CompleteBy: Maggie Tracey DO A On: 07-Dec-2011 Intent B 12 Injection, 1000 mcg (J3420)By: On: 07-Dec-[address] - OtherBy: Camelia Tracey DOa A On: 03-Oct-2011 Intent Comments: get cta of carotid arteries TDAP VACCINE >7 IM ([id number])By: On: 03-Oct-2011 Intent Raiza Ortiz B 12 Injection, 1000 mcg (J3420)By: On: 07-Sep-2011 Intent Raiza Ortiz Comments: Lot #[id number]-07/09Site-left deltoidDose-1 mlgiven by: Dani Rivera LPN Cartoid DopplerBy: Camelia Tracey DOa A On: 07-Sep-2011 Intent Comments: in september DXA, BONE DENSITY, AXIAL SKELETON On: 07-Sep-2011 Intent (96762)By: Maggie Tracey DO MAMMOGRAM, SCREENING, BOTH BREASTS On: 07-Sep-2011 Intent (20129)By: Maggie Tracey DO A Aerosol Treatment (79111)By: Evert On: 08-Aug-2011 Intent Kimberley LOVE EKG (80627)By: Raiza Ortiz On: 06-Jun-2011 Intent Comments: ekg showed normal sinus rhythym, left axis, no acute st/t wave changes DXA, BONE DENSITY, AXIAL SKELETON On: 06-Jun-2011 Intent ([id number])By: Maggie Tracey DO FLU VAC, SPLIT, >3 YEARS, INTRAMUSC On: 11-May-2011 Intent ([id number])By: Maricruz Rivera LPN Comments: Lot #[id number]//Site-left deltoidgiven by: Dani Rivera LPN B 12 Injection, 1000 mcg (J3420)By: On: 11-May-2011 Intent Maricruz Rivera LPN Comments: Lot #[id number]-/Site-right deltoidDose-1 mlgiven by: Dani Rivera LPN ADMINISTRATION OF INFLUENZA VIRUS On: 11-May-2011 Intent VACCINE ([id number])By: Maricruz Rivera LPN B 12 Injection, 1000 mcg (J3420)By: On: 05-Mar-2011 Intent Maggie Tracey DO Comments: Lot #[id number]/08Site-left deltoidDose-1 mlgiven by: Dani Rivera LPN Eprescribed prescriptions ([id number])By: On: 05-Mar-2011 Intent Maggie Tracey DO B 12 Injection, 1000 mcg (J3420)By: On: 07-Feb-2011 Intent Thelma Khan LPN Comments: 1ml given im lt dltd lot [id number] exp 3-13 Doppler Ultrasound OtherBy: Alexy KEBEDE, On: 24-Jan-2011 Intent Maggie A Comments: stat right leg- call wet read B 12 Injection, 1000 mcg (J3420)By: On: 24-Oct-2010 Intent Maggie Tracey DO A Comments: Lot #[id number] date:mount given:1mlRoute: IMSite given:left deltoidGiven by: HAY Zavala Cartoid DopplerBy: Maggie Tracey DO On: 24-Oct-2010 Intent Pap Smear, Medicare ([id number])By: On: 05-Sep-2010 Intent Raiza Ortiz Pelvic and Breast, Medicare On: 05-Sep-2010 Intent (G0101)By: Raiza Ortiz PNEUM VAC ADLT/IMUMNOSPR, SBC/INTRM On: 03-Jul-2010 Intent ([id number])By: Maggie Tracey DO Comments: Lot #[id number]-3/10/07Site-left deltoidDose- 0.5mlgiven by:GAL ADMINISTRATION OF PNEUMOCOCCAL On: 03-Jul-2010 Intent VACCINE (G0009)By: Maggie Tracey DO MAMMOGRAM, SCREENING, BOTH BREASTS On: 03-Jul-2010 Intent ([id number])By: Maggie Tracey DO B 12 Injection, 1000 mcg (J3420)By: On: 20-Jun-2010 Intent Maggie Tracey DO Comments: Lot #[id number]-left deltoidDose-1 mlgiven by:[facility] B 12 Injection, 1000 mcg (J3420)By: On: 10-May-2010 Intent Apoorva Calle Comments: Lot:[id number]:12/07Dose:1000mcg/1mlRoute:IMSite:right deltoid Given by: HAY Birch FLU VAC, SPLIT, >3 YEARS, INTRAMUSC On: 10-May-2010 Intent ([id number])By: Apoorva Calle Comments: Lot:[id number]:10/2010Dose:0.5mlRoute:IMSite:Left Deltoid Given by: HAY Birch ADMINISTRATION OF INFLUENZA VIRUS On: 10-May-2010 Intent VACCINE (G0008)By: Apoorva Calle Doppler Ultrasound OtherBy: Alexy KEBEDE, On: 12-Apr-2010 Intent Maggie Nathaniel Comments: both legs stat- left leg swelling- call wet read Spirometry ([id number])By: Alexy KEBEDE, On: 12-Apr-2010 Intent Maggie A Comments: good effort and curve normal B 12 Injection, 1000 mcg (J3420)By: On: 05-Apr-2010 Intent Maggie Tracey DO Ultrasound - GallbladderBy: Alexy KEBEDE, On: 01-Feb-2010 Intent Maggie A IV Needle placement ([id number])By: On: 10-Jan-2010 Intent Ana Guzman Comments: IV 22 gauge inserted in right antecubital on first attempt and 0.9 NSS running without difficulty-AW INFUSION, NORMAL SALINE SOLUTION , On: 10-Jan-2010 Intent 1000 CC (Special Coverage Instructions Apply. See MCM: 2049) ([id number])By: Kimberley Loyd CNP THER/PROPH/DIAG INJ, SC/IM On: 10-Jan-2010 Intent ([id number])By: Kimberley Loyd CNP Radiology - Knee - Right - Weight On: 03-Jan-2010 Intent BearingBy: Maggie Tracey DO EKG ([id number])By: Raiza Ortiz On: 03-Jan-2010 Intent Comments: ekg showed normal sinus rhythym, left axis, no acute st/t wave changes Aerosol Treatment ([id number])By: Evert On: 19-Oct-2009 Intent Kimberley LOVE Cartoid DopplerBy: Maggie Tracey DO On: 14-Jun-[address] - Brain/HeadBy: Maggie Tracey DO On: 06-Jun-2009 Intent MAMMOGRAM, SCREENING, BOTH BREASTS On: 06-Jun-2009 Intent ([id number])By: Maggie Tracey DO DXA, BONE DENSITY, AXIAL SKELETON On: 06-Jun-2009 Intent ([id number])By: Maggie Tracey DO FLU VAC, SPLIT, >3 YEARS, INTRAMUSC On: 12-May-2009 Intent ([id number])By: Maricruz Rivera LPN Comments: Lot #[id number]-left deltoidgiven by:[facility] ADMINISTRATION OF INFLUENZA VIRUS On: 12-May-2009 Intent VACCINE (G0008)By: Maricruz Rivera LPN Radiology - Hand - RightBy: Alexy KEBEDE, On: 26-Jan-2009 Intent Maggie A Radiology - Wrist - RightBy: Alexy On: 26-Jan-2009 Intent Maggie KEBEDE Comments: call wet read Pulse Oximetry ([id number])By: Alexy KEBEDE, On: 27-Dec-2008 Intent Maggie A Comments: 98 Inhaler Demo ([id number])By: Alexy KEBEDE, On: 27-Dec-2008 Intent Maggie A Spirometry ([id number])By: Alexy KEBEDE, On: 27-Dec-2008 Intent Maggie Armstrong Comments: good effort and curve has small airways diminished Radiology - Chest- PA and LatBy: On: 27-Dec-2008 Intent Maggie Tracey DO Echo CompleteBy: Alexy Maggie KEBEDE A On: 08-Nov-2008 Intent Comments: elevated bp - increase patricia EKG ([id number])By: Maggie Tracey DO On: 08-Nov-2008 Intent Comments: ekg showed normal sinus rhythym, leftl axis, no acute st/t wave changes rsr unchanged Bio Z ([id number])By: Maggie Tracey DO On: 08-Nov-2008 Intent Inhaler Demo ([id number])By: Melanie KEBEDE, On: 02-Sep-2008 Intent Doris Jay DO, DO, Kathleen Aerosol Treatment ([id number])By: Melanie On: 02-Sep-2008 Intent Doris KEBEDE DO, Kathleen Comments: less echoey -- better less cough Doris Navarro DO EKG ([id number])By: Doris Navarro DO On: 16-Dec-2007 Intent Doris Navarro DO, DO, Comments: NSR NO ACUTE CHANGES Doris B 12 Injection, 1000 mcg (J3420)By: On: 13-Nov-2007 Intent Thelma Khan LPN Comments: 1000mcg/ml 1 ml given im lt dltd lot [id number] exp 07-06. Pt tolerated well. B 12 Injection, 1000 mcg (J3420)By: On: 30-Jul-2007 Intent Doris Navarro DO Melanie DODoris DO, Kathleen EXCISION BGN LSN TRNK/ARM/LEG On: 09-Jul-2007 Intent 0.6-1.0 CM ([id number])By: Kimberley Loyd CNP BIOPSY OF SKIN LESION, SINGLE On: 09-Jul-2007 Intent ([id number])By: Kimberley Loyd CNP SHAVE SKIN LESION, TRUNK/ARM/LEG On: 02-Jul-2007 Intent ([id number])By: Kimberley Loyd CNP BIOPSY OF SKIN LESION, SINGLE On: 02-Jul-2007 Intent ([id number])By: Kimberley Loyd CNP B 12 Injection, 1000 mcg (J3420)By: On: 02-Jul-2007 Intent Lashonda Lee LPN FLU VAC, SPLIT, >3 YEARS, INTRAMUSC On: 04-Jun-2007 Intent ([id number])By: Jing Cabello RN Comments: Lot #: [id number] date: 01/03Amount given: 0.5 MLRoute: IMSite given: Left deltoidGiven by: Nathaniel Beal LPN IMMUNIZ ADMNIN, 1 VAC, SNGL/COMBO On: 04-Jun-2007 Intent ([id number])By: Jing Cabello RN B 12 Injection, 1000 [...] Injection, 1000 mcg (J3420)By: On: 11-Mar-2007 Intent Doris Navarro DO, DO, Comments: CHANGE TO MONTHLY NOWOUT OF [...] DO, Doris Melanie DO, Doris IV Infusion ([id number])By: Melanie DO, On: 18-Oct-2006 Intent Doris Melanie DO, Doris Melanie DO, Doris EKG ([id number])By: Melanie DO, Doris On: 10-Oct-2006 Intent Melanie DO, Doris Melanie [...] 1000 MCG/ML Injection Solution Ordered: 13-Apr-2016 Pending Mckinley Valentin Vitamin B-12 1000 MCG/ML Injection Solution Ordered: [...] 25-Apr-2017 Pending Melanie DO, Doris Melanie DO, Drois Melanie DO, Doris Vitamin B-12 1000 MCG/ML [...] 1000 MCG/ML Injection Solution Ordered: 11-May-2011 Pending Miguel RUBIN, Maricruz Vitamin B-12 1000 MCG/ML Injection Solution Ordered: 07-Sep-2011 Pending Raiza Ortiz Vitamin B-12 1000 MCG/ML Injection Solution Ordered: 07-Dec-2011 Pending Patsy Leslie LPN Vitamin B-12 1000 MCG/ML Injection Solution Ordered: 25-Mar-2012 Pending Miguel GILBERTN, Maricruz Vitamin B-12 1000 MCG/ML Injection Solution Ordered: 23-Jun-2012 Pending Fast DO, Maggie A Vitamin B-12 1000 MCG/ML Injection Solution Ordered: 14-Apr-2014 Pending Fast DO, Maggie A Vitamin B-12 1000 MCG/ML Injection Solution Ordered: 09-Nov-2014 Pending Fast DO, Maggie A Vitamin B-12 1000 MCG/ML Injection Solution Ordered: 15-Feb-2015 Pending Kanika Georges Vitamin B-12 1000 MCG/ML Injection Solution Ordered: [...] Melanie DO, Doris Instructions Name Dates Details Nonsmoker : How to access health information online Indication: Nonsmoker Nonsmoker : Patient Instructions Indication: [...] II diabetes mellitus Encounters Office Visit On: 24-Jun-2018 13:04 Encounter Reason: Anxiety - No changes in management were made at the last visit. Symptoms include anxiety and nervousness. Onset was gradual 4 month(s) ago. There is no known event that preceded symptom onset. The patie End: 24-Jun-2018 20:12 nt describes this as moderate in severity., [ADDITIONAL REASON] Joint Pain - Symptoms include joint pain. There is no known event that preceded symptom onset. The symptoms occur constantly. The patient describes this as severe. Encounter Diagnosis: BMI 34.0-34.9,adult, Nonsmoker, Arthritis, Other anxiety states, Bilateral sciatica [facility] Office Visit On: 14-Apr-2018 14:46 Encounter Reason: [...] for ER visit: note: (went in last thur for double vi End: 13-Feb-2018 11:46 blas). [...] patient does have durable power of deputy county attorney and living will. Other providers contributing [...] 13 steps at home. I was at [facility] for 3 days in ICU I broke [...] patient does have durable power of deputy county attorney and living will. The patient has [...] and she off pravastatin and went to [facility] and now on 5 mg of crestor- and tolerated she got leg pain and weakness on pravachol- - she got good [facility] [place] on stroke and vascular in [place]- --bp is good and cough gone and [...] patient does have durable power of deputy county attorney and living will. The damián ent [...] since going to the urgent care at [facility]- on atb yet but will finish [...] feels good- bp is great- went to [facility] for vascular check and said ok- [...] mood controlled has followup in [facility] for vascular issues soon- no chest [...] patient does have durable power of deputy county attorney and living will. The patient has [...] not home- no gerd - went to [facility] for artery checks and doing ok there- [...] care visit: Pt is cur rently on levaquin from seeing Dr. Navarro last .-she is [...] laboratory test results: she went back to [facility] Saw Dr Shruthi Quinones- ??head of [...] ER visit: note: (stroke she was at [facility] x 5days released on saturday05/22/12 to 05/27/12). The patient feels well with minor complaints, has decreased energy End: 29-May-2012 14:12 level and is sleeping well. Patient has been compliant with instructions. Current medication use: compliant with dosing regimen. Patient sleeps 7 hours per night. Nutrition: balanced diet and supplement al vitamins. Note for Follow up hospital: [facility] (formerly [facility]) Diagnosis: CVA (434.91), Benign essential hypertension (401.1), Diabetes type II,controlled no comp (250.00), Hypothyroidism (244.9), Carotid stenosis (433.10) [facility] Office Visit On: 22-May-2012 10:33 Encounter Reason: Follow up hospital - Reason for ER visit: note: (TIA. ??Patient was seen by [facility] ER x 3 times last week and then sent to [facility] for psych eval.). 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
--- OUTSIDE RECORDS SUMMARY | 2018-08-20 04:40 | XMS RPT_ITS | Continuity of Care Document ---
:1940 Author Organization [facility] Address [address] [facility] [address] [place] [address] Phone Care Team Providers Name Role Phone Doris Navarro DO Unavailable Camacho Serrano Unavailable Flakito Morales Unavailable [facility], [facility] Unavailable Marcello Stein Unavailable Sal Urrutia [...] artery stenosis (I65.23, 433.10) Comments: goes to [facility] yearly to follow Status: Active Bilateral [...] related to fatty liver -- did nutrition psychosocial rehabilitation counselor and wt loss / metformin and [...] Quantity: 15 {Tablet} Refills: 3 Ordered:07-Apr-2018 Thelma Khan LPN Start : 07-Apr-2018 Active HydroCHLOROthiazide 25 [...] KathleenFearon DO, Kathleen Start : 24-Jun-2018 Active Comments:cebhrP37.90 TraZODone HCl 100 MG Oral Tablet 1-1/2 [...] Start : 26-Sep-2016 End : 12-Dec-2017 Inactive Rosedale 5-325 MG Oral Tablet 1 q 4hrs [...] : 07-Sep-2014 End : 13-Sep-2014 Discontinued ERGOCALCIFEROL, 88974NFSX (Oral Capsule) 1 (one) Capsule q week [...] End : 23-Jun-2012 Discontinued VITAMIN D (ERGOCALCIFEROL), 34579ZWMN (Oral Capsule) 1 Capsule q week for 0 days Quantity: 12 {Capsule} Refills: 2 Ordered:19-Aug-2015 Raiza Ortiz Start : 07-Apr-2013 End : 19-Aug-2015 Discontinued VITAMIN D, 77644CRNE (Oral Capsule) 1 (one) Capsule q week [...] Department Summary Result: Comments: See Note; NOTES: [facility] Medical Records Department [address] [place] [address] Emergency Department Summary 05/14/18 0908 MR#: [id number] Acct: [id number] Name: MARICRUZ GRIGSBY Rep #: [id number] : 1940 78 From: Zee Denise MD [...] family doctors she is re ferred to [facility] for the shoulder injury and she will return for change in symptoms and she is comfortable with this plan Treatment Plan: [] Disposition: [] Stable home Impression: [] Fall left rib fracture, left shoulder injury This note was generated with BriefMe dictation software. It may contain incorrect words, spelling, and punctuation that were not noted in review of the [facility] rt prior to signing ED Disposition - Plan for ED Patient: Chief Complaint: Fall Referrals: Doris Navarro, [Primary Care Provider] - What to do if you have Problems For any increased pain, sh ortness of breath, bleeding, nausea or vomiting, chest pain, or any unexpected problems, contact your Primary Care Provider. Call Doctors Registry ([phone]) or report to the closest Emergency Room. Call 911 if necessary. 05/14/18 1530 <Electronically signed by Zee Denise MD> Date Zee Cagle (If Indicated): Date CC: Doris Navarro DO 14-May-2018 Discharge Instruction Result: Comments: See Note; NOTES: [facility] Medical Records Department [address] [place] [address] Discharge Instruction 05/14/18 1133 MR#: [id number] Acct: [id number] Name: MARICRUZ GRIGSBY Stuart Rep #: [id number] : 1940 78 From: Zee Denise MD PCP: Doris Navarro DO Status: REG ER ED Disposition - Plan for ED Patient: Chief Complaint: Fall Instructions: ED M echanical Fall, ED Fx Rib, ED Sprain Shoulder, ED Sling Prescriptions: Hydrocodone Bitart/Apap 5-325 [[place] 5MG-325MG] 1 tab PO Q6H PRN PRN 3 Days #10 tab PRN Reason: Pain Referrals: Doris Navarro DO [Primary Care Provider] - What to do if you have Problems For any increased pain, shortness of breath, bleeding, nausea or vomiting, chest pain, or any unexpected problems, contact your Primary Car e Provider. Call Doctors Registry ([phone]) or report to the closest Emergency Room. Call 911 if necessary. 05/14/18 1134 <Electronically signed by Zee Denise MD> Date ___ Zee Denise MD Cosigner Signature (If Indicated): Date CC: Doris Navarro DO 14-May-2018 Chest PA and Lateral Result: Comments: See Note; NOTES: [facility] Imaging Services [address] [place] [address] Chest PA and Lateral MR#: [id number] Acct: [id number] Name: CLIFFORD FABYMARICRUZ THORNE Rep #: [id number] : 1940 F 78 From: Teo Wayne MD PCP: Doris Navarro DO Status: REG ER Study: Chest PA and Lateral Date of Exam: 05/14/18 Exam# [id number] Ordering Dr: Zee Denise MD STUDY: X-RAY [...] Teo Wayne MD at 10:11 EDT Tel [phone], Parkya support , CC: MD Sonam Denise; Doris Navarro DO Hiv/Aids Care Nurse: Signed 14-May-2018 Elbow min 3 Views Result: Comments: See Note; NOTES: [facility] Imaging Services [address] [place] [address] Elbow min 3 Views MR#: [id number] Acct: [id number] Name: CLIFFORD CRUZMARICRUZ Stuart Rep #: : 1940 F 78 From: Teo Wayne MD PCP: Doris Navarro DO Status: [facility] ER Study: Elbow min 3 Views Date of Exam: 05/14/18 Exam# [id number] Ordering Dr: Zee Denise MD STUD Y: [...] Teo Wayne MD at 10:12 EDT Tel [phone], Service support , CC: MD Sonam Denise; Doris Navarro DO Hiv/Aids Care Nurse: Signed 14-May-2018 Shoulder min 2 Views Result: Comments: See Note; NOTES: [facility] Imaging Services [address] [place] [address] Shoulder min 2 Views MR#: [id number] Acct: [id number] Name: MARICRUZ GRIGSBY Rep #: [id number] : 1940 F 78 From: Teo Wayne MD PCP: Doris Navarro DO Status: [facility] Study: Shoulder min 2 Views Date of Exam: 05/14/18 Exam# [id number] Ordering Dr: Zee Denise MD STUDY: X-RAY [...] Wayne MD at 11:02 EDT Tel [phone], Service support , CC: MD Sonam Denise; Doris Navarro DO Hiv/Aids Care Nurse: Signed 06-Feb-2018 History and Physical Exam Result: Comments: See Note; NOTES: [facility] Medical Records Department [address] [place] [address] History and Physical 02/06/182050 MR#: [id number] Acct: [id number] Name: MARICRUZ GRIGSBY Rep #: [id number] : 1940 77 From: María Barnes MD [...] cholecystectomy Psychiatric History: No pertinent psych hx 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 This note was generated with [employer] software. It may contain incorrect words, spelling, and punctuation that were not noted in checking the note before signing. Code Visit OBSV E AND M: 03630 Initial observation care L3 2108 <Electronically signed by María Barnes MD> Date María Barnes MD Cosigner Signature: Date (if applicable) CC: María Barnes; Doris Navarro DO Signed 06-Feb-2018 Brain/Head without Contrast Result: Comments: See Note; NOTES: [facility] Imaging Services [address] [place] [address] Brain/Head without Contrast MR#: [id number] Acct: [id number] Name: MARICRUZ GRIGSBY Rep #: [id number] : 1940 F 77 From: Renata Lee MD PCP: Doris Navarro DO Status: [facility] Study: Brain/Head without Contrast Date of Exam: 02/06/18 Exam# [id number] Ordering Dr: Cameron Marte MD STUDY: CT [...] , CC: Doris Navarro DO; Jered Marte Hiv/Aids Care Nurse: Signed 06-Feb-2018 Chest 1 View Result: Comments: See Note; NOTES: [facility] Imaging Services [address] [place] [address] Chest 1 View MR#: [id number] Acct: [id number] Name: MARICRUZ GRIGSBY Rep #: [id number] : 1940 F 77 From: Renata Lee MD PCP: Doris Navarro DO Status: [facility] ER Study: Chest 1 View Date of Exam: 02/06/18 Exam# [id number] Ordering Dr: Jered Marte MD STUDY: X-RAY [...] , CC: Doris Navarro DO; Jered Marte Hiv/Aids Care Nurse: Signed 25-Nov-2017 Liver Result: Comments: See Note; NOTES: [facility] Imaging Services [address] [place] [address] Liver MR#: [id number] Acct: [id number] Name: MARICRUZ GRIGSBY Rep #: [id number] : 1940 F 77 From: Mack Hand MD PCP: Doris Navarro DO Status: REG CLI Study: Liver Date of Exam: 11/25/17 Exam# [id number] Ordering Dr: Doris Navarro DO STUDY: ABDOMINAL [...] MD at 12:34 EDT , Service support [phone], CC: Doris Navarro DO Hiv/Aids Care Nurse: Signed 29-Oct-2017 Hip 2-3 Views with Pelvis Result: Comments: See Note; NOTES: [facility] Imaging Services [address] [place] [address] Hip 2-3 Views with Pelvis MR#: [id number] Acct: [id number] Name: MARICRUZ GRIGSBY ep #: [id number] : 1940 F 77 From: Benji Finch PCP: Doris Navarro DO Status: REG CLI Study: Hip 2-3 Views with Pelvis Date of Exam: 10/29/17 Exam# [id number] Ordering Dr: Thelma Sofia STUDY: X-RAY - [...] , CC: QUINN Sofia; Doris Navarro DO Hiv/Aids Care Nurse: Signed 27-Aug-2017 12 Lead Electrocardiogram Result: Comments: See Note; NOTES: [facility] Cardiovascular Services [address] [place] [address] 12 Lead EKG 08/24/17 1719 MR#: [id number] Acct: [id number] Name: CLIFFORD CRUZPORTIA CABRAL Stuart Rep #: [id number] : 1940 77 From: Maurilio Meraz MD [...] C onfirmed by SOLEDAD STREETER, MAURILIO ([id number]), supervising editor trailer STACY CARTER (56) on 08/27/2017 10:37:34 AM Referred By: EITAN Confirmed By:MAURILIO MERAZ MD 08/27/17 1037 Date Maurilio Meraz MD CC: Doris Navarro DO Signed 25-Aug-2017 Emergency Department Summary Result: Comments: See Note; NOTES: [facility] Medical Records Department [address] [place] [address] Emergency Department Summary 08/24/17 1709 MR#: [id number] Acct: [id number] Name: CLIFFORD CRUZMARICRUZ Stuart Rep #: [id number] : 1940 77 From: Zee Denise MD [...] at home. She has no history of [place] PE or DVT she does have history [...] be altered This note was generated with Advanced Liquid Logic dictation software. It may contain incorrect words, [...] your Primary Care Provider. Call Doctors Registry ([phone]) or report to the closest Emergency Room. Call 911 if necessary. 08/25/17 0001 <Electronically sig radha by Zee Denise MD> Date Zee Denise MD Cosigner Signature (If Indicated): Date CC: Doris Navarro DO 24-Aug-2017 Discharge Instruction Result: Comments: See Note; NOTES: [facility] Medical Records Department [address] [place] [address] Discharge Instruction 08/24/171819 MR#: [id number] Acct: [id number] Name: MARICRUZ GRIGSBY Rep #: [id number] : 1940 77 From: Zee Denise MD [...] your Primary Care Provider. Call Doctors [facility] ([phone]) or report to the closest [facility] Room. Call 911 if necessary. 08/24/171820 <Electronically signed by Zee Denise MD> Date Zee Denise MD Cosign er Signature (If Indicated): Date CC: Doris Navarro DO 24-Aug-2017 Chest PA and Lateral Result: Comments: See Note; NOTES: [facility] Imaging Services [address] [place] [address] Chest PA and Lateral MR#: [id number] Acct: [id number] Name: MARICRUZ GRIGSBY Rep #: [id number] : 1940 F 77 From: Stacy Tapia MD PCP: Doris Navarro DO Status: REG ER Study: Chest PA and Lateral Date of Exam: 08/24/17 Exam# [id number] Ordering Dr: Zee Denise MD XR Chest [...] CC: MD Sonam Denise; Doris Navarro DO Hiv/Aids Care Nurse: Signed 07-Aug-2017 Chest PA and Lateral Result: Comments: See Note; NOTES: [facility] Imaging Services [address] [place] [address] Chest PA and Lateral MR#: [id number] Acct: [id number] Name: MARICRUZ GRIGSBY Rep #: [id number] : 1940 F 77 From: Teo Wayne MD PCP: Doris Navarro DO Status: REG CLI Study: Chest PA and Lateral Date of Exam: 08/07/17 Exam# [id number] Ordering Dr: Doris Navarro DO STUDY: X-RAY [...] Logan i, MD at 13:49 EST Tel [phone], Service support , CC: Doris Navarro DO Hiv/Aids Care Nurse: Signed 20-Nov-2016 Operative Report Result: Comments: See Note; NOTES: [facility] Medical Records Department [address] [place] [address] Operative Report 11/14/16 0736 MR#: [id number] Acct: [id number] Name: MARICRUZ BREAUX Rep #: [id number] : 1940 76 From: Liza Duron DO PCP: Doris Navarro DO Status: [facility] Y Location: [facility] Report of Operation Date of Procedure: 11/14/16 Pre-Operative Diagnosi s: Right third and fourth trigger fingers Post-Operative Diagnosis: Name Surgery/Procedure Performed:: Right hand third and fourth A1 shannan release Type of Anesthesia:: Trace,Guerrero Anesthesiologist: Fox Michaels Estimated Blood Loss (mL): [...] draped after Guerrero block was initiated. We markdedra posey out [...] Dragon disclaimer This note was generated with BriefMe dictation software. It may contain incorrect words, spellin g, and punctuation that were not noted in checking the note before signing. 11/20/16 1231 <Electronically signed by Liza Duron DO> Date Liza Oliverio KEBEDE CC: Liza Duron DO; Doris Navarro Signed 16-Nov-2016 Oncology Progress Note Result: Comments: See Note; NOTES: [facility] Medical Records Department [address] [place] [address] Oncology Progress Note MR#: [id number] Acct: [id number] Name: PORTIA GRIGSBY Rep #: [id number] : 1940 76 From: Sal Urrutia MD [...] level. Sal Urrutia MD T: NTS JOB: [id number] 11/16/16 0850 <Electronically signed by Sal Urrutia MD> Date Sal Urrutia MD Cosigner Signature (If Indicated): Date CC: Date Dictated: 11/08/161304 Date Transcribed: 11/08/161304 Hiv/Aids Care Nurse: Signed 14-Nov-2016 Discharge Instruction Result: Comments: See Note; NOTES: [facility] Medical Records Department [address] [place] [address] Instructions for Home/Discharge Instructions 11/14/16 0735 MR#: [id number] Acct: [id number] Name: MARICRUZ GRIGSBY Rep #: [id number] : 1940 76 From: Liza Duron DO [...] mg PO DAILY 11/09/16 Hydrocodone Bitart/Apap 5-325 [Rosedale 5MG- 325MG] 1 - 2 tablet PO Q6H PRN PRN #20 tablet 11/14/16 The following prescriptions were given: Hydrocodone Bitart/Apap 5- 325 [Rosedale 5MG-325MG] 1 - 2 tablet PO Q6H PRN PRN #20 tablet PRN Reason: Pain Primary Care Physician: Doris Navarro DO [Primary Care Provider] - Please Follow Up With: Liza Duron - [phone] 11/14/16 0836 <Electronically signed by Liza Duron DO> Date Liza Duron DO CC: Doris Navarro DO 20-Jul-2016 Chest PA and Lateral Result: Comments: See Note; NOTES: [facility] Imaging Services [address] [place] [address] Verdana 4d Chest PA and Lateral MR#: [id number] Acct: [id number] Name: JOSE AHOMERO JAQUAN CRUZ Rep #: [id number] : 1940 F 76 From: Mack Hand MD PCP: Doris Navarro DO Status: REG CLI Study: Chest PA and Lateral Date of Exam: 07/20/16 Exam# [id number] Ordering Dr: Doris Navarro DO STUDY: X-RAY [...] at 12:24 EST Tel , Service support [phone], CC: Doris Navarro DO Hiv/Aids Care Nurse: Signed 26-Jan-2016 Echocardiogram Complete Result: Comments: See Note; NOTES: [facility] Cardiovascular Services [address] [place] [address] Echo Complete 01/26/16 1008 MR#: [id number] Acct: [id number] Name: MARICRUZ PARMAR Rep #: [id number] : 1940 75 From: Mack Dickerson MD Attending Dr: Maggie Tracey DO Status: REG CLI Ordering Dr: Maggie Tracey DO Date: 01/26/16 Location[facility] Sex: F C Admsouleymane ed: Reason [...] Tracey Performed By: Sharyn Bear RDCS 01/26/16 161 Date ___ Mack Dickerson MD CC: Maggie Tracey DO Date Dictated: 01/26/16 1008 Date Transcribed: 01/26/161611 Hiv/Aids Care Nurse: Signed 05-Dec-2015 Chest 1 View (Portable) Result: Comments: See Note; NOTES: [facility] Imaging Services [address] [place] [address] Verdana 4d Chest 1 View (Portable) MR#: [id number] Acct: [id number] Name: MARICRUZ PEÑALOZA Rep #: [id number] : 1940 F 75 From: Yari Garcia MD PCP: Maggie Tracey DO Status: PRE ER Study: Chest 1 View (Portable) Date of Exam: 12/05/15 Exam# [id number] Ordering Dr: Johnnie Baez MD STUDY: X-RAY [...] at 16:44 EDT Tel , Service support [phone], RAD/Chest 1 V iew (Portable) IMPRESSION: Underexpansion of the lungs. Mild to moderate cardiomegaly. Electronically Signed: Yari Garcia MD at 16:44 EDT Tel , Service support , CC: Maggie Tracey DO; Johnnie Baez MD Hiv/Aids Care Nurse: Signed 05-Dec-2015 Spirometry (34387) Comments: good effort and curvenormal Result: 05-Dec-2015 EKG (23029) Comments: ekg showed normal sinus rhythym, normal axis, no acute st/t wave changes Result: [MEASUREMENTS ANALYSIS] Date of Test: 12/05/2015 14:27:41; Heart Rate: 93; MA Interval: 202; QRS: 96; QT Interval: 352; Corrected QT Interval (QTc): 409; P Wave [place]: 48; QRS Wave [place]: -26; T Wave [place] : 55; Blood Pressure: 134/64 [ECG DIAGNOSTIC STATEMENTS] Date of Test: 12/05/2015 14:27:41; Summary: Sinus Rhythm WITHIN NORMAL LIMITS 21-Sep-2015 12 Lead Electrocardiogram Result: Comments: See Note; NOTES: [facility] Cardiovascular Services [address] [place] [address] 12 Lead EKG 09/19/15 0908 MR#: [id number] Acct: [id number] Name: MARICRUZ VIGIL Rep #: [id number] : 1940 75 From: Maurilio Meraz MD [...] wave progression Confirmed by SOLEDAD STREETER, MAURILIO ([id number]), supervising editor trailer STACY CARTER ([id number]) on 09/21/2015 11:27:40 AM Referred By: JE Confirmed By:MAURILIO MERAZ MD 1127 Date Maurilio Meraz MD CC: Maggie Tracey DO Date Dictated: 09/19/15907 Date Transcribed: 09/19/15907 Hiv/Aids Care Nurse: Signed 19-Sep-2015 Discharge Instruction Result: Comments: See Note; NOTES: [facility] Medical Records Department [address] [place] [address] Discharge Instruction 09/19/15 1020 MR#: [id number] Acct: [id number] Name: CLIFFORD CRUZMARICRUZ tSuart Rep #: [id number] : 1940 75 From: Johnnie Baez MD [...] chest pain, or any unexpected problems, contact [facility] doctor. Call Doctors Registry ([phone]) or report to the closest Emergency Room. Call 911 if necessary. 09/19/15 1759 <Electronically signed by Johnnie Baez MD> Date __ Johnnie Baez MD Cosigner Signature (If Indicated): Date CC: Maggie Tracey 19-Sep-2015 Emergency Department Summary Result: Comments: See Note; NOTES: [facility] Medical Records Department [address] [place] [address] Emergency Department Summary MR#: [id number] Acct: [id number] Name: MARICRUZ GRIGSBY Rep #: [id number] : 1940 75 From: Johnnie Baez MD [...] tachycardia at 112. No acute signs of [place] or ischemia. White count 11.4, H and [...] MD C C: Maggie Tracey DO T: [facility] JOB: [id number] 09/19/15 1755 <Electronically signed by Johnnie Baez MD& amp;#62; Date Johnnie Baez MD Cosigner Signature (If Indicated): Date CC: Maggie Tracey DO Date Dictated: 09/19/15 1019 Date Transcribed: 09/19/15 1019 Hiv/Aids Care Nurse: Signed 07-Sep-2015 Chest PA and Lateral Result: Comments: See Note; NOTES: [facility] Imaging Services [address] [place] [address] Verdana 4d Chest PA and Lateral MR#: [id number] Acct: [id number] Name: EAN CRUZMARICRUZ Stuart Rep #: [id number] : 1940 F 75 From: Kali Raymundo MD PCP: Maggie Tracey DO Status: REG CLI Study: Chest PA and Lateral Date of Exam: 09/07/15 Exam# [id number] Ordering Dr: Maggie Irwin DO STUDY: X-RAY [...] FACR at 11:41 EST , Service support [phone], RAD/Chest PA and Lateral IMPRESSION: No significant changes. Stable moderate cardiomegaly. Bilateral interstitial changes more prominent on the right. Savannahi marcus Signed: Kali Raymundo MD, FACR at 11:41 EST , Service support [phone], CC: Maggie Tracey DO Hiv/Aids Care Nurse: Signed 07-Sep-2015 Spirometry (82704) Comments: good effort and curve normal Result: 24-Mar-2015 PT Discharge Summary Result: Comments: See Note; NOTES: [facility] Physical Therapy [facility] [facility] [place] [address] Fax REHABILITATION SERVICES DISCHARGE SUMMARY MR#: [id number] Acct: [id number] Name: MARICRUZ GRIGSBY Rep #: [id number] : 1940 75 From: Yuni Clark Referring : Maggie Tracey DO Status: DIS RCR Eval [...] discharge. Yuni Clark, PT T: NTS JOB: [id number] <Electronically signed by Yuni Clark > 03/24/15 1227 CC: Maggie Tracey DO Signed 17-Feb-2015 Inital Evaluation - PT Result: Comments: See Note; NOTES: [facility] Physical Therapy [facility] [facility] [place] [address] Fax REHABILITATION SERVICES INITIAL EVALUATION MR#: [id number] Acct: [id number] Name: MARICRUZ GRIGSBY Rep #: [id number] : 1940 75 From: Yuni Clark Referring DrDonnie: Maggie Tracey DO Status: REG RCR Insurance : MEDICARE PART A B Eval Date: [facility] DATE OF SERVICE: 02/16/2015 SUBJECTIVE: [...] plan of care. Yuni Clark, PT T: CHERI JOB: [id number] <Electronically signed by Yuni Clark > 02/17/15 1011 CC: Signed For Medicare only, by seng yao this I certify the plan of care. Physicians Signature Date 08-Feb-2015 L/S Spine Min 4 Views Result: Comments: See Note; NOTES: [facility] Imaging Services [address] [place] [address] Radiology Report MR#: [id number] Acct: [id number] Name: MARICRUZ GRIGSBY Rep #: [id number] : 1940 F 74 From: Teo Wayne MD PCP: Maggie Tracey DO Status: REG CLI Study: L/S Spine Min 4 Views Date of Exam: 02/08/15 Exam# [id number] Ordering Dr: Maggie Tracey DO STUDY: X-RAY [...] Wayne MD a t 12:30 EDT Tel [phone], Service support [phone], RAD/L/S Spine Min 4 Views IMPRESSION: Degenerative changes of the spine, as detailed above. Electro nically Signed: Teo Wayne MD at 12:30 EDT Tel [phone], Service support [phone], CC: Maggie Tracey DO Hiv/Aids Care Nurse: Signed 15-Nov-2014 Thyroid Result: Comments: See Note; NOTES: [facility] Imaging Services [address] [place] [address] Ultrasound Report MR#: [id number] Acct: [id number] Name: MARICRUZ GRIGSBY Rep #: [id number] : 1940 F 74 From: Julián Trivedi DO PCP: Maggie Tracey DO Status: REG CLI Study: Thyroid Date of Exam: 11/15/14 Exam# [id number] Ordering Dr: Maggie Tracey DO STUDY: THYROID [...] Julián Trivedi DO at 16:51 EDT Tel [phone], Service support [phone], Fax CC: Maggie Tracey DO Hiv/Aids Care Nurse: Signed 13-Sep-2014 Chest PA and Lateral Result: Comments: See Note; NOTES: [facility] Imaging Services [address] [place] [address] Radiology Report MR#: [id number] Acct: [id number] Name: MARICRUZ GRIGSBY Rep #: [id number] : 1940 F 74 From: Donato Abdi MD PCP: Maggie Tracey DO Status: REG CLI Study: Chest PA and Lateral Date of Exam: 09/13/14 Exam# [id number] Ordering Dr: Maggie Tracey DO STUDY: X [...] at 12:01 EST Tel , Service support [phone], CC: Maggie Tracey DO Hiv/Aids Care Nurse: Signed 15-Jul-2014 Chest PA and Lateral Result: Comments: See Note; NOTES: [facility] Imaging Services [address] [place] [address] Radiology Report MR#: [id number] Acct: [id number] Name: MARICRUZ GRIGSBY Rep #: [id number] : 1940 F 74 From: Teo Wayne MD PCP: Maggie Tracey DO Status: REG CLI Study: Chest PA and Lateral Date of Exam: 07/15/14 Exam# [id number] Ordering Dr: Maggie Tracey DO SANDI DY: [...] Teo Wayne MD at 9:42 EST Tel [phone], Service support [phone], CC: Maggie Tracey DO Hiv/Aids Care Nurse: Signed 10-May-2014 Bilat Scrn Digital & CAD Result: Comments: See Note; NOTES: [facility] Imaging Services [address] [place] [address] Breast Imaging Report MR#: [id number] Acct: [id number] Name: MARICRUZ GRIGSBY ep #: [id number] : 1940 F 74 From: Gene Phillips PCP: Maggie Tracey DO Status: REG CLI Exam# [id number] Ordering Dr: Maggie Tracey DO MAMMOGRAPHY - [...] these results will be sent to the [facility] ient by the facility within 30 days. Approximately 10% of breast cancers are not detected by mammography. A normal mammogram should not delay biopsy of a clinically suspicious abnormality. Electro nically Signed: Jessenia Phillips MD at 19:48 EDT Tel , Service support [phone], CC: Maggie Tracey DO Hiv/Aids Care Nurse: Signed 10-Sep-2013 Dexa Bone Density Study (HP) Result: Comments: See Note; NOTES: [facility] Imaging Services [address] [place] [address] Bone Density Report MR#: [id number] Acct: [id number] Name: MARICRUZ GRIGSBY Rep #: [id number] : 1940 F 73 From: Teo Wayne MD PCP: Maggie Tracey DO Status: REG CLI Study: Dexa Bone Density Study (HP) Date of Exam: 09/10/13 Exam# [id number] Ordering Dr: Maggie Tracey DO STUDY: DUAL [...] M.D. at 11:04 EST , Service support [phone], CC: Maggie Tracey DO Hiv/Aids Care Nurse: Signed Immunization Name Dates Details Influenza (3 years and up) on: 04-Jun-2007 Comments: Lot #: [id number] date: 01/03Amount given: 0.5 MLRoute: IMSite given: Left deltoidGiven by: Nathaniel Beal LPN Influenza (3 years and up) on: 12-May-2009 Comments: Lot #[id number]-left deltoidgiven by:CDH Family History Unknown Family Member Name Dates Details Cancer Status: Active Diabetes Mellitus Status: Active Father Comments: [place], hypercholesterolemia Status: Active First Degree Relatives Comments: [...] smoker Vital Signs Date Test Result Details 89-Nyi-598438:08 Pulse 76 /min Comments: Pattern: Regular Respiration [...] kg/m2 Body Surface Area Calculated 2.01 m2 92-Tkg-481141:46 Temperature 97.8 f Comments: Method: Temporal Pulse [...] kg/m2 Body Surface Area Calculated 2.01 m2 04-Skw-030638:03 Temperature 98.5 f Comments: Method: Temporal Pulse [...] kg/m2 Body Surface Area Calculated 2.01 m2 73-Pue-138562:05 Pulse 74 /min Comments: Pattern: Regular Respiration [...] kg/m2 Body Surface Area Calculated 2.06 m2 79-Usa-538115:57 Pulse 78 /min Comments: Pattern: Regular Respiration [...] kg/m2 Body Surface Area Calculated 2.06 m2 2-Hfr-789369:26 Comments: orthostatic bp assessment: 12:10pmlying- 170/90 76hrsitting- [...] kg/m2 Body Surface Area Calculated 2.06 m2 29-Kzh-496072:29 Comments: Dr. Reyes and had a glauocma [...] administered 81mg asa orally at this time also-[facility] BP Systolic 156 mm[Hg] Comments: Patient [...] Height 65 in Head Circumference 0.00 cm 97-Wvi-511576:21 Temperature 97.9 f Comments: Method: Oral Pulse [...] Value Details :50 Rapid Strep Test, Office (57513) Rapid Strep Test, Office Negative (Normal) 0-Hjs-670952:58 TSH (84540) Comments: PATIENT NOT FASTINGPERFORMED BY: [facility] Yfovia4869 [facility] [id number] TSH 5.590 {uIU/mL} (Abnormal) Range: 0.450-4.500 3-Uri-385347:58 T4, FREE (THYROXINE) (20663) Comments: PATIENT NOT FASTINGPERFORMED BY: [facility]CoEast [facility] HospitalUmzcxk6301 [facility] [id number] T4,Free(Direct) 1.81 ng/dL (Abnormal) Range: 0.82-1.77 4-Pnk-135749:58 T3, FREE (TRIDOTHYRONINE) (10851) Comments: PATIENT NOT FASTINGPERFORMED BY: [facility] [id number] Triiodothyronine (T3), Free 2.1 pg/mL (Normal) Range: [...] Muscle ABS Comments: Comments: ANTI-LIVER/KIDNEY MICRO AB [id number] SER/[facility] (refer to report for specific site)refer [...] number MELI-DIRECT Negative (Normal) Comments: Performed at: [facility] [id number] Director: Constantine Christianson PhD, Phone: [phone] Ceruloplasmin Comments: Comments: ANTI-LIVER/KIDNEY MICRO AB [id number] [facility] (refer to report for specific site)refer to report for address and phone number CERULOPLAS 1560 22.0 mg/dL (Normal) Range: 19.0-39.0 :44 CMV Acute Antibody IgM Comments: Comments: ANTI-LIVER/KIDNEY MICRO AB [id number] SER/[facility] (refer to report for specific site)refer to report for address and phone number CMVIgM AB < 30.0 AU/mL (Normal) Range: 0.0-29.9 Comments: Negative <30.0 Equivocal 30.0 - 34.9 Positive >34.9A positive result is generally indicative of acuteinfection, reactivation or persistent IgM production. :44 Ferritin Comments: Comments: ANTI-LIVER/KIDNEY MICRO AB [id number] SER/[facility] [address] [place], [place], [id number] FERRITIN 236 ng/mL (Normal) Range: 8-252 :44 Free T3 Comments: Comments: ANTI-LIVER/KIDNEY MICRO AB [id number] [facility] Huiumlpoev[address] [place], [place], [address] FREE T3 1.6 pg/mL (Abnormal) Range: 2.18-3.98 :44 GGTP 64 U/L (Abnormal) Comments: Comments: ANTI-LIVER/KIDNEY MICRO AB [id number] [facility] Jrxhrrsonn[address] [place], [place], [address] Range: 5-55 :44 Hepatitis Panel Acute Comments: Comments: ANTI-LIVER/KIDNEY MICRO AB [id number] [facility] (refer to report for specific site)refer to report for address and phone number HEP C AB <0.1 {s/co_ratio} (Normal) Range: 0.0-0.9 Comments: Negative: < 0.8 Indeterminate: 0.8 - 0.9 Positive: > 0.9 The CDC recommends that a positive HCV antibody result be followed up with a HCV Nucleic Acid Amplification test (912604). HB CORE [id number] Negative (Normal) HB SURF AG Negative (Normal) HEP A IgM 6734 Negative (Normal) :44 Liver Profile Comments: Comments: ANTI-LIVER/KIDNEY MICRO AB [id number] SER/[facility] Bs[address]usesz[address] [place], [place], [address] D BILI 0.17 mg/dL (Normal) Range: 0.00-0.30 T BILI 0.60 mg/dL (Normal) Range: 0.20-1.00 ALT 48 U/L (Normal) Range: 13-56 ALK P 93 U/L (Normal) Range: 45-117 AST 43 U/L (Abnormal) Range: 15-37 GLOB 3.5 g/dL (Normal) Range: 2.2-4.2 ALB 3.7 g/dL (Normal) Range: 3.2-5.0 T PROT 7.2 g/dL (Normal) Range: 6.4-8.2 :44 Miscellaneous Lab Procedure Comments: Comments: ANTI-LIVER/KIDNEY MICRO AB [id number] SER/RFTest(s) Ordered: ANTI-LIVER/KIDNEY MICROS AB [id number] SER/[facility] Rrkjblcawq7324 [facility] CenterdedraMendocino, [place], [address] [facility] Comments: TEST RESULT UNITS REF INTERVALLiver- Kidney Microsomal Ab <1.0 Units 0.0 - 20.0 Negative 0.0 - 20.0 LAB (Normal) Equivocal 20.1 - 24.9 Positive >24.9LKM type 1 antibodies are detected in patients withautoimmune hepatitis type 2 and in up to 8% ofpatients wi TEST th chronic HCV infection. TESTING PERFORMED AT [facility]. ORIGINAL REPORT ON FILE IN LAB CONTAINS ADDITIONAL TEST SITE INFORMATION. :44 T4 Free Direct Comments: Comments: ANTI-LIVER/KIDNEY MICRO AB [id number] SER/[facility] [address]dexbw[address] [place], [place], [address] T4 FREE DIRECT 1.06 ng/dL (Normal) Range: 0.76-1.46 43-Ovh-24465:44 Thyroid Stim Hormone (TSH) Comments: Comments: ANTI-LIVER/KIDNEY MICRO AB [id number] [facility] Klfbjrdibg5[address] [place], [address] TSH 16.40 {uIU/mL} (Abnormal) Range: 0.358-3.74 61-Ggz-50325:44 Transferrin Comments: Comments: ANTI-LIVER/KIDNEY MICRO AB [id number] SER/[facility] (refer to report for specific site)refer to report for address and phone number TRANSFERRN 2084 250 mg/dL (Normal) Range: 200-370 Comments: Performed at: [address] [id number] Director: Constantine Christianson PhD, Phone: [phone] 94-Wsw-185636:16 Bedside Glucose Comments: [facility] LaboratoryPoint of Ntpi[address] [place] [address] BEDSIDE GLU 152 mg/dL (Abnormal) Range: 70-110 Comments: MANAGEMENT OF PATIENT CARE PER NURSING PROTOCOL 88-Fbp-122642:45 Basic Metabolic Profile (BMP) Comments: [facility] Dqhpgggifi6906 [facility] [place], [address] GAP 8 (Normal) Range: 5-15 [...] A.D.A. criteria.Please note revised GLUCOSE reference range dnxghbrbu15/02/2018. 34-Qwo-780354:45 CBC W/Diff, Automated Comments: [facility] [address] [place], [address] Absolute Lymph 1.73 {X10_3/ul} (Normal) Range: 0.83-4.51 [...] Range: 4.4-11.0 :45 Partial Thromboplast Time Comments: [facility] [address] [place], [address] PTT 33.0 s (Normal) Range: 24.1-36.2 88-Yos-368439:45 Prothrombin Time w/INR Comments: [facility] [address] [place], [address] INR 0.9 (Normal) PROTIME 12.5 s (Normal) Range: 11.7-14.9 :45 Troponin-I Comments: [facility] D[address] [place], [address] TROPONIN-I < 0.015 ng/mL Comments: TROPONIN-I EXPECTED VALUES <0.045 Negative 0.045 - 0.590 Consistent with Cardiac Damage > OR = 0.600 Critical Value Not every elevated troponin is indicative of [place]. T (Normal) hesevalues should be used with clinical judgement in examiningthe patient's clinical picture for diagnosis. To establisha diagnosis of [place] versus myocardial injury, there must be ademonstrated rise and/ or fall in the troponin values, inaddition to ischemic symptoms, EKG changes, new regionalwall motion abnormality, and/or angiographical evidence. PLEASE NOTE: REFERENCE RANGES EDITED 17 Liver-Kidney <1.0 {Units} Comments: PATIENT NOT FASTINGPERFORMED BY: [facility] [id number] 2:14 Microsomal Ab (Normal) Range: 0.0-20.0 Comments: Negative 0.0 - 20.0 Equivocal 20.1 - 24.9 Positive >24.9 . LKM type 1 antibodies are detected in patients with autoimmune hepatitis type 2 and in up to 8% of patients with chronic HCV infection. 19-Knt-638489:14 HEPATIC FUNCTION PANEL Comments: PATIENT NOT FASTINGPERFORMED BY: [facility] [id number] (21006) ALT (SGPT) 49 [iU]/L (Abnormal) Range: 0-32 AST (SGOT) 57 [iU]/L (Abnormal) Range: 0-40 Alkaline Phosphatase 100 [iU]/L (Normal) Range: 39-117 Bilirubin, Direct 0.14 mg/dL (Normal) Range: 0.00-0.40 Bilirubin, Total 0.4 mg/dL (Normal) Range: 0.0-1.2 Albumin 4.1 g/dL (Normal) Range: 3.5-4.8 Protein, Total 6.8 g/dL (Normal) Range: 6.0-8.5 15-Zis-015492:14 HEPATITIS PANEL (57517) Comments: PATIENT NOT FASTINGPERFORMED BY: [facility]omaticsEast Mountain HospitalWdkqzk1681 [facility] [id number] Hep C Virus Ab <0.1 {s/co_ratio} (Normal) Range: 0.0-0.9 Comments: Negative: < 0.8 Indeterminate: 0.8 - 0.9 Positive: > 0.9 . The CDC recommends that a positive HCV antibody result be followed up with a HCV Nucleic Acid Amplification test (837875). Hep B Core Ab, IgM Negative (Normal) HBsAg Screen Negative (Normal) Hep A Ab, IgM Negative (Normal) 45-Omx-336524:14 ANTIMITOCHONDRIAL ANTIBODY Comments: PATIENT NOT FASTINGPERFORMED BY: Austhink SoftwareMary [facility] Hospital6370 [facility] [id number] (17645) Mitochondrial (M2) Antibody <20.0 {Units} (Normal) Range: 0.0-20.0 Comments: Negative 0.0 - 20.0 Equivocal 20.1 - 24.9 Positive >24.9 . Mitochondrial (M2) Antibodies are found in 90-96% of patients with primary biliary cirrhosis. 61-Hqi-516115:14 TRANSFERRIN (29575) Comments: PATIENT NOT FASTINGPERFORMED BY: [facility] SoftwareMary [facility] Hospital6370 [facility] [id number] Transferrin 226 mg/dL (Normal) Range: 200-370 81-Msy-698909:14 GGT (GAMMA GLUTAMYLTRANSFERASE) Comments: PATIENT NOT FASTINGPERFORMED BY: [facility]xiomaticsEast Mountain HospitalXzdpca4844 [facility] [id number] (69449) GGT 59 [iU]/L (Normal) Range: 0-60 66-Hvs-813820:14 FERRITIN (61295) Comments: PATIENT NOT FASTINGPERFORMED BY: CORTEZ Austhink SoftwareCox Walnut Lawn Wckgjn9644 [facility] [id number] Ferritin, Serum 545 ng/mL (Abnormal) Range: 15-150 49-Qzq-325513:14 CMV IGM ANTBDY (93493) Comments: PATIENT NOT FASTINGPERFORMED BY: [facility]6370 [facility] [id number] Cytomegalovirus (CMV) Ab, IgM <30.0 AU/mL (Normal) Range: 0.0-29.9 Comments: Negative <30.0 Equivocal 30.0 - 34.9 Positive >34.9 A positive result is generally indicative of acute infection, reactivation or persistent IgM production. 70-Cwt-293626:14 CERULOPLASMIN (68465) Comments: PATIENT NOT FASTINGPERFORMED BY: [facility]6370 [facility] [id number] Ceruloplasmin 26.3 mg/dL (Normal) Range: 19.0-39.0 28-Uru-578231:14 ASM (ANTI SMOOTH MUSCLE Comments: PATIENT NOT FASTINGPERFORMED BY: [facility] SoftwareMary [facility]6370 [facility] [id number] ANTIBODY) (85044) Actin (Smooth Muscle) Antibody 5 {Units} (Normal) Range: 0-19 Comments: Negative 0 - 19 Weak positive 20 - 30 Moderate to strong positive >30 . Actin Antibodies are found in 52-85% of patients with autoimmune hepatitis or chronic active hepatitis and in 22% of patients with primary biliary cirrhosis. 68-Lbi-839702:14 MELI (ANTINUCLEAR ANTIBODY) Comments: PATIENT NOT FASTINGPERFORMED BY: [facility] SoftwareC[facility] Lawn Yrpttl3310 [facility] [id number] (04203) MELI Direct Negative (Normal) 10-Qjv-433335:33 HgA1C , Office (93348) HgA1C , Office 7.2 % (Abnormal) Range: 4.6 - 7.1 17-Rsu-864063:38 MELI (ANTINUCLEAR ANTIBODY) Comments: PATIENT NOT FASTINGPERFORMED BY: [facility] Igtjeo2432 [facility] [id number] (09978) MELI Direct Negative (Normal) 56-Qwp-623294:38 VITAMIN B-12 (CYANOCOBALAMIN) Comments: PATIENT NOT FASTINGPERFORMED BY: CORTEZ [employer]indo[employer] Juan MartinezGeneral [facility] [id number] (74932) Vitamin B12 463 pg/mL (Normal) Range: 232-1245 78-Qel-301672:38 TSH (31281) Comments: PATIENT NOT FASTINGPERFORMED BY: CORTEZ [facility] Irwcre6308 [facility] [id number] TSH 0.062 {uIU/mL} (Abnormal) Range: 0.450-4.500 60-Ynm-957415:38 SED RATE ERYTHROCYTE (56569) Comments: PATIENT NOT FASTINGPERFORMED BY: CORTEZ [employer] Rftwch6195 [facility] [id number] Sedimentation Rate-Westergren 7 mm/h (Normal) Range: 0-40 09-Mlj-506439:38 METABOLIC PANEL, COMPREHENSIVE Comments: PATIENT NOT FASTINGPERFORMED BY: CORTEZ [employer] Xhffkd4437 [facility] [id number] (12437) ALT (SGPT) 52 [iU]/L (Abnormal) Range: 0-32 [...] 8-27 Glucose 134 mg/dL (Abnormal) Range: 65-99 36-Joi-210038:38 C-REACTIVE PROTEIN (82967) Comments: PATIENT NOT FASTINGPERFORMED BY: AxiomaticsTraci [place] 4281570 [facility] [id number] C-Reactive Protein, Quant 4.8 mg/L (Normal) Range: 0.0-4.9 15-Zqy-398873:38 CBC (AUTO) (55215) Comments: PATIENT NOT FASTINGPERFORMED BY: AxiomaticsTraci [place] 4281570 [facility] [id number] Platelets 248 {x10E3/uL} Range: 150-379 (Normal) RDW [...] mg/L (Abnormal) Comments: PATIENT NOT FASTINGPERFORMED BY: [employer] SoftwareDonna V[place] 7027070 [facility] [id number] BY: [address] [id number] 2:25 Serum Range: 0.6-2.4 Comments: Siemens Immulite 2000 Immunochemiluminometric assay (ICMA) 5-Gip-568846:25 Immunoglobulins Comments: PATIENT NOT FASTINGPERFORMED BY: [place]omaticsTraci [place] 4281570 [facility] [id number] BY: [address] [id number] Iga/Ige/Igg/Igm (GAME) (08060) Immunoglobulin E, Total 259 {IU/mL} (Abnormal) Range: 0-100 Immunoglobulin M, Qn, Serum 113 mg/dL (Normal) Range: 26-217 Immunoglobulin A, Qn, Serum 130 mg/dL (Normal) Range: 64-422 Immunoglobulin G, Qn, Serum 837 mg/dL (Normal) Range: 700-1600 7-Pqj-674825:25 LDH (LD) (LACTATE Comments: PATIENT NOT FASTINGPERFORMED BY: [facility] [id number] BY: [address] [id number] DEHYDROGENASE) (16117) LDH 195 [iU]/L (Normal) Range: 119-226 4-Aab-640675:25 METABOLIC PANEL, Comments: PATIENT NOT FASTINGPERFORMED BY: [facility] [id number] BY: [address] [id number] COMPREHENSIVE (08190) ALT (SGPT) 47 [iU]/L (Abnormal) Range: 0-32 [...] 8-27 Glucose 139 mg/dL (Abnormal) Range: 65-99 5-Pyc-752773:25 CBC, PLATELETS & AUT DIFF Comments: PATIENT NOT FASTINGPERFORMED BY: CB [facility] Stxxcn0115 [facility] [id number] BY: BN [facility] Cahlgeulud7606 [facility] [id number] (76516) Immature Grans (Abs) 0.0 {x10E3/uL} (Normal) Range: [...] 3.77-5.28 WBC 7.2 {x10E3/uL} (Normal) Range: 3.4-10.8 80-Ulk-747102:28 Microscopic Examination Comments: PATIENT NOT FASTINGPERFORMED BY: [employer] ClickingHouse [facility] [id number] Bacteria None seen (Normal) Mucus Threads Present (Normal) Cast Type Hyaline casts (Normal) Casts Present {/lpf} (Abnormal) Epithelial Cells (non renal) 0-10 {/hpf} (Normal) Range: 0 - 10 RBC 0-2 {/hpf} (Normal) Range: 0 - 2 WBC >30 {/hpf} (Abnormal) Range: 0 - 5 34-Xym-638291:24 URINE RANI CULTURE-RADHA COL Comments: PATIENT NOT FASTINGPERFORMED BY: [employer] Tcphjr1006 [facility] [id number] Information: SRC:UC COUNT (11932) Antimicrobial MIHEAD (Normal) Comments: S = Susceptible; I = Intermediate; R = Resistant P = Positive; N = Negative MICS are expressed in micrograms per mL Antibiotic RSLT#1 RSLT#2 RS Susceptibility LT#3 RSLT#4Amoxicillin/Clavulanic Acid SAmpicillin RCefepime SCeftriaxone SCefuroxime SCephalothin SCiprofloxacin SGentamicin SImipenem SNitrofurantoin SPiperacillin RTetracycline STobram ycin STrimethoprim/Sulfa S Result 1 Raoultella Comments: 5,000 Colonies/mL planticola (Abnormal) Urine Final report Culture,Comprehensive (Abnormal) 75-Xfs-193899:28 MICROALBUMIN: CREATININE RATIO Comments: PATIENT NOT FASTINGPERFORMED BY: [employer] Fhuhjq7785 [facility] [id number] (40025) AND (67736) Alb/Creat Ratio 215.8 {mg/g_creat} (Abnormal) Range: 0.0-30.0 Albumin, Urine 245.4 ug/mL (Normal) Creatinine, Urine 113.7 mg/dL (Normal) 56-Fwd-453503:28 URINALYSIS, W/ MICRO (49498) Comments: PATIENT NOT FASTINGPERFORMED BY: [facility]hink SoftwareMary [facility] Hospital6370 [facility] [id number] Microscopic Examination See below: (Normal) Comments: Microscopic was indicated and was performed. Nitrite, Urine Negative (Normal) Urobilinogen,Semi-Qn 0.2 mg/dL (Normal) Range: 0.2-1.0 Bilirubin Negative (Normal) Occult Blood Negative (Normal) Ketones Negative (Normal) Glucose Trace (Abnormal) Protein 1+ (Abnormal) WBC Esterase 1+ (Abnormal) Appearance Clear (Normal) Urine-Color Yellow (Normal) pH 5.5 (Normal) Range: 5.0-7.5 Specific [place] 1.025 (Normal) Range: 1.005-1.030 44-Lmm-322278:28 METABOLIC PANEL, COMPREHENSIVE Comments: PATIENT NOT FASTINGPERFORMED BY: [facility] SoftwareMary [facility]6370 [facility] [id number] (32613) ALT (SGPT) 37 [iU]/L (Abnormal) Range: 0-32 [...] Glucose, Serum 179 mg/dL (Abnormal) Range: 65-99 33-Tsv-290608:28 CBC, PLATELETS & AUT DIFF Comments: PATIENT NOT FASTINGPERFORMED BY: [facility] Vzmbje6652 [facility] [id number] (55247) Immature Grans (Abs) 0.0 {x10E3/uL} (Normal) Range: [...] 3.77-5.28 WBC 9.3 {x10E3/uL} (Normal) Range: 3.4-10.8 20-Gqh-429767:28 TSH (THYROID STIMULATING Comments: PATIENT NOT FASTINGPERFORMED BY: [facility]6370 [facility] [id number] HORMONE) (76315) TSH 23.220 {uIU/mL} (Abnormal) Range: 0.450-4.500 44-Mhv-724755:28 LIPID PANEL (66286) Comments: PATIENT NOT FASTINGPERFORMED BY: [facility]6370 [facility] [id number] LDL/HDL Ratio 1.7 {ratio_units} (Normal) Range: 0.0-3.2 Comments: LDL/HDL Ratio Men Women 1/2 Avg.Risk 1.0 1.5 Av g.Risk 3.6 3.2 2X Avg.Risk 6.2 5.0 3X Avg.Risk 8.0 6.1 LDL Cholesterol Calc 83 mg/dL (Normal) Range: 0-99 VLDL Cholesterol Priscilla 42 mg/dL (Abnormal) Range: 5-40 HDL Cholesterol 48 mg/dL (Normal) Triglycerides 208 mg/dL (Abnormal) Range: 0-149 Cholesterol, Total 173 mg/dL (Normal) Range: 100-199 69-Lym-195209:28 CALCIFEDIOL (59277) Comments: PATIENT NOT FASTINGPERFORMED BY: [facility]6370 [facility] [id number] Vitamin D, 25-Hydroxy 25.4 ng/mL (Abnormal) Range: 30.0-100.0 Comments: Vitamin D deficiency has been defined by the [place] ofMedicine and an Endocrine Society practice guideline as alevel of serum 25-OH vitamin D less than 20 ng/mL (1,2).The Endocrine Society went on to further define vitamin Dinsufficiency as a level between 21 and 29 ng/mL (2).1. IOM ([place] of Medicine). 2010. Dietary reference intakes for calcium and D. [place]: The National Academies Press.2. Rachel CAMACHO, Yael MARLEY, Dunia HERRERA, et al. Evaluation, treatment, and prevention of vitamin D deficiency: an Endocrine Society clinical practice guideline. JCEM. 2010; 96(7):1911-30. 90-Ydg-846874:40 Basic Metabolic Profile (BMP) Comments: 'TROP' Serial specimen #1, #2, #3, or #4: 1WKettering Health Dayton Zmlyxpuitv[address] [place], [place], [address] GAP 11 (Normal) Range: 5-15 CO2 24.0 [...] 126 mg/dLsuggests DIABETES MELLITUS per A.D.A. criteria. 81-Qcz-660715:40 BNP,B-Type NATRIURETIC PEPTIDE Comments: [facility] Zibjgswnxp[address] [place], [place], [address] B-TYPE SANJU PEP 13.3 pg/mL (Normal) Range: 0-100 96-Mhg-429421:40 CBC W/Diff, Automated Comments: [facility] [address] [place], [address] Absolute Lymph 1.65 {X10_3/ul} (Normal) Range: [...] 4.2-5.4 WBC 4.1 K/mm3 (Abnormal) Range: 4.4-11.0 16-Kdy-620318:40 Troponin-I Comments: 'TROP' Serial specimen #1, #2, #3, or #4: [address] [place] [address] Ijovaqwocj2138 [place], [address] TROPONIN-I < 0.02 ng/mL (Normal) Comments: TROPONIN-I EXPECTED VALUES <0.05 NEGATIVE 0.06 - 0.59 AT RISK OF [place] > OR = 0.60 SUGGEST [place] 23-Ddk-848111:08 Microscopic Examination Comments: PATIENT WAS FASTINGPERFORMED BY: [facility] Qixpid7133 [facility] [id number] Bacteria Few (Normal) Mucus Threads Present (Normal) Cast Type Hyaline casts (Normal) Casts Present {/lpf} (Abnormal) Epithelial Cells (non renal) 0-10 {/hpf} (Normal) Range: 0 - 10 RBC 0-2 {/hpf} (Normal) Range: 0 - 2 WBC 11-30 {/hpf} (Abnormal) Range: 0 - 5 73-Dxg-818347:08 CALCIFIDIOL (76587) VIT D 25 Comments: PATIENT WAS FASTINGPERFORMED BY: Austhink SoftwareMary [facility] Hospital6370 [facility] [id number] Vitamin D, 25-Hydroxy 33.5 ng/mL (Normal) Range: 30.0-100.0 Comments: Vitamin D deficiency has been defined by the [place] of[facility] and an Endocrine Society practice guideline as alevel of serum 25-OH vitamin D less than 20 ng/mL (1,2).The Endocrine Society went on to further define vitamin Dinsufficiency as a level between 21 and 29 ng/mL (2).1. IOM ([place] of Medicine). 2010. Dietary reference intakes for calcium and D. [place]: The National AcademAl[employer] Press.2. Rachel MF, Yael MARLEY, Dunia HERRERA, et al. Evaluation, treatment, and prevention of vitamin D deficiency: an Endocrine Society clinical practice guideline. JCEM. 2010; 96(7):1911-30. 51-Gcq-269864:08 TSH (38661) Comments: PATIENT WAS FASTINGPERFORMED BY: [facility]CoEast Mountain HospitalKzoyvv0564 [facility] [id number] TSH 3.700 {uIU/mL} (Normal) Range: 0.450-4.500 38-Ptj-031712:08 LIPID PANEL (58747) Comments: PATIENT WAS FASTINGPERFORMED BY: LabCoEast Mountain HospitalDctjzk8558 [facility] [id number] LDL/HDL Ratio 1.8 {ratio_units} (Normal) Range: 0.0-3.2 Comments: LDL/HDL Ratio Men Women 1/2 Avg.Risk 1.0 1.5 Av g.Risk 3.6 3.2 2X Avg.Risk 6.2 5.0 3X Avg.Risk 8.0 6.1 LDL Cholesterol Calc 84 mg/dL (Normal) Range: 0-99 VLDL Cholesterol Priscilla 49 mg/dL (Abnormal) Range: 5-40 HDL Cholesterol 46 mg/dL (Normal) Triglycerides 243 mg/dL (Abnormal) Range: 0-149 Cholesterol, Total 179 mg/dL (Normal) Range: 100-199 88-Hmx-849616:08 URINALYSIS, W/ MICRO (06423) Comments: PATIENT WAS FASTINGPERFORMED BY: [employer] [facility]lic[facility]House [facility] [id number] Microscopic Examination See below: (Normal) Comments: Microscopic was indicated and was performed. Nitrite, Urine Negative (Normal) Urobilinogen,Semi-Qn 0.2 mg/dL (Normal) Range: 0.2-1.0 Bilirubin Negative (Normal) Occult Blood Negative (Normal) Ketones Negative (Normal) Glucose Negative (Normal) Protein 2+ (Abnormal) WBC Esterase 1+ (Abnormal) Appearance Clear (Normal) Urine-Color Yellow (Normal) pH 5.5 (Normal) Range: 5.0-7.5 Specific [place] >=1.030 (Abnormal) Range: 1.005-1.030 16-Rer-850605:08 MICROALBUMIN: CREATININE RATIO Comments: PATIENT WAS FASTINGPERFORMED BY: [id number] [id number] ([id number]) AND ([id number]) Microalb/Creat Ratio 246.3 {mg/g_creat} (Abnormal) Range: 0.0-30.0 Microalbumin, Urine 433.7 ug/mL (Normal) Comments: Results confirmed ondilution. Creatinine, Urine 176.1 mg/dL (Normal) [id number] METABOLIC PANEL, COMPREHENSIVE Comments: PATIENT WAS FASTINGPERFORMED BY: AxiomaticsGerald Champion Regional Medical CenterAzkvvf5723 [facility] [id number] (45123) ALT (SGPT) 26 [iU]/L (Normal) Range: 0-32 [...] Glucose, Serum 158 mg/dL (Abnormal) Range: 65-99 16-Ndh-989191:08 CBC W/AUTO DIFF WBC (92812) Comments: PATIENT WAS FASTINGPERFORMED BY: LabCoEast Mountain HospitalYdwbwf1430 [facility] [id number] Immature Grans (Abs) 0.0 {x10E3/uL} (Normal) Range: [...] (Normal) Range: 3.4-10.8 :31 HgA1C , Office (13007) HgA1C , Office 6.6 % (Normal) Range: 4.6 - 7.1 :31 Blood Glucose , Office (64504) Blood Glucose , Office 143 (Normal) :45 CBC W/Diff, Automated Comments: [facility] [address] [place], [place], [id number] Absolute Lymph 1.46 {X10_3/ul} (Normal) Range: 0.83-4.51 [...] 4.2-5.4 WBC 12.9 K/mm3 (Abnormal) Range: 4.4-11.0 7-Ccc-906792:45 Comprehensive Metabolic Profil Comments: [facility] [address] [place], [place], [address] GAP 8 (Normal) Range: 5-15 CO2 27.0 [...] 126 mg/dLsuggests DIABETES MELLITUS per A.D.A. criteria. 8-Lsj-971497:45 Prothrombin Time w/INR Comments: [facility] [address] [place], [place], [address] INR 0.9 (Normal) PROTIME 11.6 s (Abnormal) Range: 11.7-14.9 8-Hby-928022:12 HgA1C , Office (97013) HgA1C , Office 6.5 % (Normal) Range: 4.6 - 7.1 1-Hkn-798076:12 Blood Glucose , Office (81397) Blood Glucose , Office 122 (Normal) :39 Lipid Profile Comments: [facility] Ko[address]fu[address] [place], [place], [address] VLDL 39 mg/dL (Normal) Range: 5-40 LDL [...] report for address and phone number METHYLM 010116 215 nmol/L (Normal) Range: 0-378 Comments: Performed at: [address] [id number] Director: Frantz Josue MD, Phone: [phone] 84-Vmz-08559:39 Vitamin B12 531 pg/mL (Normal) Comments: [facility] [address] [place], [place], [address] Range: 211-911 06-Znd-76997:39 Vitamin D,25 Hydroxy Comments: [facility] [address]xunfsmqky[address] [place], [address] Vitamin D 25-OH 44.7 ng/mL (Normal) Comments: Vitamin D 25(OH) Status Range Deficiency <20 ng/mL (50nmol/L) Insuffciency 20 - 30 ng/mL (50 - 75 nmol/L) Sufficiency 30 - 100 ng/mL (75 - 250 nmol/L) Toxicity >100 ng/mL (>250 nmol/L) 51-Wsp-76366:29 Bedside Glucose Comments: [facility] LaboratoryPoint of Awtp[address] [place] [address] BEDSIDE GLU 139 mg/dL (Abnormal) Range: 70-110 Comments: No Action RequiredMANAGEMENT OF PATIENT CARE PER NURSING PROTOCOL COLON BIOPSY (CHOOSE See Note (Normal) Comments: [facility] Yrydt[address]phun[address] [place], [phone] :54 SITE) Comments: Patient: MARICRUZ GRIGSBY : 1940 (76/F) Acct Num: [id number] Phys: Constantine Saunders Unit Num: [id number] Loc: LABSPEC Specimen: [id number] Received: 11/05/16 - 1631 Spe c Type: [...] one cassette. / RY:rg 11/06/16 TC:1 CPT: 02603 x2 HEADER OPERATION: Colonoscopy with polypectomy PRE-OP DIAGNOSIS: Heme-positive stool / anemia TISSUE SUBMITTED: A - Transverse col on polyp, rule out adenoma, B - Right colon polyp biopsies, rule out adenoma MICROSCOPIC DESCRIPTION Slides are reviewed. MICROSCOPIC DIAGNOSIS A. Transverse colon polyp, polypectomy: Fragments of hyperplastic polyp. B. Right colon polyp, polypectomy: Fragments of tubular adenoma. SJ:edita 11/07/16 Signed Zane Newtonin 11/07/16 <signature on file> 84-Wsv-979309:47 CBC W/Diff, Automated Comments: [facility] [address] [place], [address] Absolute Lymph 1.88 {X10_3/ul} (Normal) Range: 0.83-4.51 [...] 4.2-5.4 WBC 8.8 K/mm3 (Normal) Range: 4.4-11.0 78-Xxi-253111:42 Comprehensive Metabolic Profil Comments: Order Date: 10/10/16Order Info: 0786-1 - *CMP Complete Metabolic PanelOrder Info: 86906-7 - *IBC Iron \E AND E\ Total Iron Binding CapacityOrder Info: 2276-4 - *FerritinComments: Reason:Order Date: 10/10/16Order Info: 90271-2 - *KAPLAMBDA - [place] Lamda Light ChainsComments: Reason:[facility] Ps[address]ikuagn[address] [place], [address] GAP 9 (Normal) Range: 5-15 CO2 28.0 [...] <126 mg/dLsuggests IMPAIRED HOMEOSTASIS per A.D.A. criteria. 22-Rjy-877010:42 Ferritin Comments: Order Date: 10/10/16Order Info: 0786-1 - *CMP Complete Metabolic PanelOrder Info: 44967-6 - *IBC Iron \E AND E\ Total Iron Binding CapacityOrder Info: 2276-4 - *FerritinComments: Reason:Order Date: 10/10/16Order Info: 62441-3 - *[place]DA - [place] Lamda Light ChainsComments: Reason:[facility] [address] [place], [place], [address] FERRITIN 45 ng/mL (Normal) Range: 8-252 24-Ftj-209475:42 DEEPALI + Protein Elect, Serum Comments: Order Date: 10/10/16Order Info: 0282-1 - *IMEL DEEPALI + Prot Elec, Serum 1495Order Info: 22643-4 - *[place] - [place] Lamda Light ChainsOrder Date: 10/10/16Order Info: 0282-1 - *IMEL DEEPALI + Prot Elec, Serum 1495Order Info: 57981-7 - *[place]DA - [place] Lamda Light ChainsOrder Date: 10/10/16Order Info: 80914-1 - *[place] - [place] Lamda Light ChainsIs Patient Fasting? NComments: Reason:[facility] (refer to report for specific site)refer to report for address and phone number NOTE: Comment (Normal) Comments: Protein electrophoresis scan will follow via computer,mail, or asset management lead delivery. DEEPALI RESULT,S Comment (Normal) Comments: Immunofixation shows IgG monoclonal protein with lambdalight chain specificity. A/G RATIO 1.4 (Normal) Range: 0.7-1.7 GLOBULIN, TOTAL 2.8 g/dL (Normal) Range: 2.2-3.9 M-SPIKE 0.3 g/dL (Abnormal) GAMMA GLOBULIN 0.8 g/dL (Normal) Range: 0.4-1.8 BETA GLOBULIN 0.9 g/dL (Normal) Range: 0.7-1.3 QJSMD-9-POWQ 0.9 g/dL (Normal) Range: 0.4-1.0 JVMJH-0-MLGY 0.2 g/dL (Normal) Range: 0.0-0.4 ALBUMIN 3.7 g/dL (Normal) Range: 2.9-4.4 IMMUNOGL M 100 mg/dL (Normal) Range: 26-217 IMMUNO A 106 mg/dL (Normal) Range: 64-422 IMMUNO G 693 mg/dL (Abnormal) Range: 700-1600 PROTEIN,TOTAL 6.5 g/dL (Normal) Range: 6.0-8.5 50-Moo-591470:42 Iron+Iron Binding Capacity Comments: Order Date: 10/10/16Order Info: 0786-1 - *CMP Complete Metabolic PanelOrder Info: 18717-1 - *IBC Iron \E AND E\ Total Iron Binding CapacityOrder Info: 2276-4 - *FerritinComments: Reason:Order Date: 10/10/16Order Info: 04001-8 - *[place]DA - [place] Lamda Light ChainsComments: Reason:[facility] Aj[address]siwh[address]8 [place], [place], [address] IRON SATURATION 15.9 % (Normal) Range: 15.0-55.0 IRON 49 ug/dL (Abnormal) Range: 50-170 TIBC 309 ug/dL (Normal) Range: 250-450 94-Xsw-387501:42 [place] Lambda Light Chains Comments: Order Date: 10/10/16Order Info: 0282-1 - *IMEL DEEPALI + Prot Elec, Serum 1495Order Info: 57262-8 - *[place] - [place] Lamda Light ChainsOrder Date: 10/10/16Order Info: 0282-1 - *IMEL DEEPALI + Prot Elec, Serum 1495Order Info: 17473-8 - *[place] - [place] Lamda Light ChainsOrder Date: 10/10/16Order Info: 16211-3 - *[place] - [place] Lamda Light ChainsIs Patient Fasting? NComments: Reason:[facility] (refer to report for specific site)refer to report for address and phone number KAPPA/LAMBDA % 0.98 (Normal) Range: 0.26-1.65 Comments: Performed at: - [facility]Co[address] [id number] Director: Constantine Christianson PhD, Phone: [phone] FR LAMBDA LT CH 19.06 mg/L (Normal) Range: 5.71-26.30 FR KAPPA LT CHN 18.62 mg/L (Normal) Range: 3.30-19.40 43-Kpp-549826:06 VITAMIN B-12 (CYANOCOBALAMIN) Comments: PATIENT NOT FASTINGPERFORMED BY: [facility] Enivhg2014 [facility] [id number] (32602) Vitamin B12 709 pg/mL (Normal) Range: 211-946 :45 Blood Glucose , Office (93133) Blood Glucose , Office 104 (Normal) :45 HgA1C , Office (05824) HgA1C , Office 6.7 % (Normal) Range: 4.6 - 7.1 :54 CBC W/Diff, Automated Comments: [facility] [address] [place], [place], [address] Absolute Lymph 1.51 {X10_3/ul} (Normal) Range: 0.83-4.51 [...] 4.2-5.4 WBC 7.0 K/mm3 (Normal) Range: 4.4-11.0 00-Zvb-03764:54 Comprehensive Metabolic Profil Comments: [facility] [address] [place], [place], [address] GAP 8 (Normal) Range: 5-15 CO2 28.0 [...] per A.D.A. criteria. :54 Lipid Profile Comments: [facility] Kw[address] [place], [address] VLDL 38 mg/dL (Normal) Range: [...] High Risk :54 Microalb:Creat Ratio,Random UR Comments: [facility] [address] [place], [address] MALB:CREAT 223.2 {mg/g_CRE} (Abnormal) MICROALBUMIN,UR 250.0 mg/L (Normal) UR CREAT 112.00 mg/dL (Normal) :54 Thyroid Stim Hormone (TSH) Comments: [facility] [address] [place], [address] TSH 1.13 {uIU/mL} (Normal) Range: 0.358-3.74 :54 Urinalysis, Complete Comments: How was Urine Obtained? CLEAN [facility] [address]ly[address] [place], [address] MUCUS, URINE 0 SEEN {/hpf} [...] (Normal) CLARITY Clear (Normal) COLOR Yellow (Normal) 57-Eao-59283:54 Vitamin D,25 Hydroxy Comments: [facility] [address]elf[address] [place], [place], [address] Vitamin D 25-OH 31.6 ng/mL (Normal) Comments: Vitamin D 25(OH) Status Range Deficiency <20 ng/mL (50nmol/L) Insuffciency 20 - 30 ng/mL (50 - 75 nmol/L) Sufficiency 30 - 100 ng/mL (75 - 250 nmol/L) Toxicity >100 ng/mL (>250 nmol/L) 66-Pdr-290818:07 VITAMIN B-12 (CYANOCOBALAMIN) Comments: PATIENT NOT FASTINGPERFORMED BY: [facility] [id number] (55445) Vitamin B12 1119 pg/mL (Abnormal) Range: 211-946 47-Rzz-898046:23 Microscopic Examination Comments: PATIENT WAS FASTINGPERFORMED BY: Clickatell Waller FFWDLifeCare [facility] [id number] Bacteria Few (Normal) Mucus Threads Present (Normal) Epithelial Cells (non renal) 0-10 {/hpf} (Normal) Range: 0 - 10 RBC 0-2 {/hpf} (Normal) Range: 0 - 2 WBC >30 {/hpf} (Abnormal) Range: 0 - 5 17-Sld-053528:23 VITAMIN B-12 (CYANOCOBALAMIN) Comments: PATIENT WAS FASTINGPERFORMED BY: [facility] [id number] (87415) Vitamin B12 >2000 pg/mL (Abnormal) Range: 211-946 25-Onl-563157:23 TSH (99320) Comments: PATIENT WAS FASTINGPERFORMED BY: [facility]6370 [facility] [id number] TSH 5.380 {uIU/mL} (Abnormal) Range: 0.450-4.500 90-Glk-810583:23 URINALYSIS, W/ MICRO (78422) Comments: PATIENT WAS FASTINGPERFORMED BY: [facility]6370 [facility] [id number] Microscopic Examination See below: (Normal) Comments: Microscopic was indicated and was performed. Nitrite, Urine Negative (Normal) Urobilinogen,Semi-Qn 0.2 mg/dL (Normal) Range: 0.2-1.0 Bilirubin Negative (Normal) Occult Blood Negative (Normal) Ketones Negative (Normal) Glucose Negative (Normal) Protein Trace (Normal) WBC Esterase 2+ (Abnormal) Appearance Clear (Normal) Urine-Color Yellow (Normal) pH 6.0 (Normal) Range: 5.0-7.5 Specific [place] 1.022 (Normal) Range: 1.005-1.030 :23 MICROALBUMIN: CREATININE RATIO Comments: PATIENT WAS FASTINGPERFORMED BY: [facility]6370 [facility] [id number] (90372) AND (72143) Microalb/Creat Ratio 24.2 {mg/g_creat} (Normal) Range: 0.0-30.0 Microalbumin, Urine 35.4 ug/mL (Normal) Creatinine, Urine 146.0 mg/dL (Normal) 98-Dgp-166586:23 METABOLIC PANEL, COMPREHENSIVE Comments: PATIENT WAS FASTINGPERFORMED BY: [facility]6370 [facility] [id number] (48835) ALT (SGPT) 25 [iU]/L (Normal) Range: 0-32 [...] Glucose, Serum 143 mg/dL (Abnormal) Range: 65-99 41-Cut-453125:23 CBC W/AUTO DIFF WBC (51618) Comments: PATIENT WAS FASTINGPERFORMED BY: LabCoEast Mountain HospitalWxqyuj1838 [facility] [id number] Immature Grans (Abs) 0.0 {x10E3/uL} (Normal) Range: [...] 3.77-5.28 WBC 7.4 {x10E3/uL} (Normal) Range: 3.4-10.8 92-Vku-082628:23 CALCIFIDIOL (24290) VIT D 25 Comments: PATIENT WAS FASTINGPERFORMED BY: [facility]6370 [facility] [id number] Vitamin D, 25-Hydroxy 28.9 ng/mL (Abnormal) Range: 30.0-100.0 Comments: Vitamin D deficiency has been defined by the [place] of[place]icine and an Endocrine Society practice guideline as alevel of serum 25-OH vitamin D less than 20 ng/mL (1,2).The Endocrine Society went on to further define vitamin Dinsufficiency as a level between 21 and 29 ng/mL (2).1. IOM ([place] of Medicine). 2010. Dietary reference intakes for calcium and D. [place]: The National Academies Press.2. Rachel CAMACHO, Yael MARLEY, Dunia HERRERA, et al. Evaluation, treatment, and prevention of vitamin D deficiency: an Endocrine Society clinical practice guideline. JCEM. 2010; 96(7):1911-30. :22 HgA1C , Office (19237) HgA1C , Office 7.1 % (Normal) Range: 4.6 - 7.1 :22 Blood Glucose , Office (57633) Blood Glucose , Office 171 (Normal) :10 Basic Metabolic Profile (BMP) Comments: Serial Specimen #1, #2 or #3? 1'TROP' Serial specimen #1, #2, #3, or #4: 1WK[facility] [address]wapmg[address] [place], [place], [address] GAP 8 (Normal) Range: 5-15 CO2 28.0 [...] A.D.A. criteria. :10 CBC W/Diff, Automated Comments: [facility] [address] [place], [address] Absolute Lymph 1.32 {X10_3/ul} (Normal) [...] 4.2-5.4 WBC 8.5 K/mm3 (Normal) Range: 4.4-11.0 5-Boq-908138:10 CK-MB Quantitative and Index Comments: Serial Specimen #1, #2 or #3? 1'TROP' Serial specimen #1, #2, #3, or #4: 1[facility] [address]sfhwu[address] [place], [address] CKRI 1.3 % (Normal) Range: 0.0-1.4 Comments: RELATIVE INDEX >1.5% IS PRESUMPTIVELY POSITIVE CPKMB 4.3 ng/mL (Normal) Range: 0.0-5.0 Comments: CK-MB and RI Interpretation MB Relative Index Non-AMI <or= 5 NA Indeterminate > 5 <or= 4 AMI > 5 > 4 CPK TOTAL 333 U/L (Abnormal) Range: 26-192 9-Hjh-733423:10 Troponin-I Comments: Serial Specimen #1, #2 or #3? 1'TROP' Serial specimen #1, #2, #3, or #4: 1[facility] [address] [place], [place], [address] TROPONIN-I < 0.02 ng/mL (Normal) Comments: TROPONIN-I EXPECTED VALUES <0.05 NEGATIVE 0.06 - 0.59 AT RISK OF [place] > OR = 0.60 SUGGEST [place] :55 Blood Glucose , Office (70424) Blood Glucose , Office 117 (Normal) :36 HgA1C , Office (79883) HgA1C , Office 7.1 % (Normal) Range: 4.6 - 7.1 :52 CBC W/Diff, Automated Comments: CBCD WITH WBC PER ORDERWKettering Health Dayton [address]rojixmhs[address] [place], [place], [address] Absolute Lymph 1.67 {X10_3/ul} (Normal) Range: 0.83-4.51 [...] Range: 4.4-11.0 30-Nov-20156:52 Comprehensive Metabolic Profil Comments: [facility] [address] [place], [address] GAP 10 (Normal) Range: 5-15 CO2 26.0 [...] specificity.Bence Jorge Protein positive; lambda type.Performed at: [facility] [place] [address] 1269Lab Dire ctor: Constantine Christianson PhD, Phone: [phone] :[phone] Immunofixation, Serum Comments: [facility] (refer to report for specific site)refer to report for address and phone number DEEPALI RESULT,S Comment (Normal) Comments: Immunofixation shows IgG monoclonal protein with lambdalight chain specificity. IMMUNOGL M 112 mg/dL (Normal) Range: 26-217 IMMUNO A 110 mg/dL (Normal) Range: 64-422 IMMUNO G 783 mg/dL (Normal) Range: 700-1600 :52 [place] Lambda Light Chains Comments: [facility] (refer to report for specific site)refer to report for address and phone number KAPPA/LAMBDA % 1.03 (Normal) Range: 0.26-1.65 FR LAMBDA LT CH 21.11 mg/L (Normal) Range: 5.71-26.30 FR KAPPA LT CHN 21.66 mg/L (Abnormal) Range: 3.30-19.40 :52 Lipid Profile Comments: [facility] [address] [place], [address] ; review OV 12/02/15 VLDL 35 mg/dL [...] High Risk :52 Microalb:Creat Ratio,Random UR Comments: [facility] [address] [place], [address] MALB:CREAT 44.5 {mg/g_CRE} (Abnormal) MICROALBUMIN,UR 68.1 mg/L (Normal) UR CREAT 153.00 mg/dL (Normal) :52 Vitamin B12 268 pg/mL (Normal) Comments: [facility] [address]jlvt[address] [place], [address] Range: 211-911 Comments: ADDENDA: normal and has f/u this saturday:52 Vitamin D,25 Hydroxy Comments: [facility] [address] [place], [address] Vitamin D 25-OH 48.8 ng/mL (Normal) Comments: Vitamin D 25(OH) Status Range Deficiency <20 ng/mL (50nmol/L) Insuffciency 20 - 30 ng/mL (50 - 75 nmol/L) Sufficiency 30 - 100 ng/mL (75 - 250 nmol/L) Toxicity >100 ng/mL (>250 nmol/L) :15 Basic Metabolic Profile (BMP) Comments: [facility] [address] [place], [address] GAP 10 [...] 200 mg/dLsuggests DIABETES MELLITUS per A.D.A. criteria. 83-Iir-07282:15 CBC W/Diff, Automated Comments: [facility] [address] [place], [address] RED CELL MORPH NORM C+C {NORMAL} (Normal) [...] 4.2-5.4 WBC 11.4 K/mm3 (Abnormal) Range: 4.4-11.0 27-Xgn-114803:08 HgA1C , Office (81136) HgA1C , Office 6.8 % (Normal) Range: 4.6 - 7.1 6-Hnl-293436:30 FERRITIN (79452) Comments: PATIENT WAS FASTINGPERFORMED BY: [employer] Pfmloo5737 [facility] [id number] Ferritin, Serum 121 ng/mL (Normal) Range: 15-150 5-Lco-354977:30 IRON (09592) Comments: PATIENT WAS FASTINGPERFORMED BY: [employer] Yhmojd4112 [facility] [id number] Iron, Serum 56 ug/dL (Normal) Range: 35-155 [...] - 159 >60 years 27 - 139 6-Kin-662930:30 TSH (51169) Comments: PATIENT WAS FASTINGPERFORMED BY: [employer] Ygxygo6778 [facility] [id number] TSH 1.660 {uIU/mL} (Normal) Range: 0.450-4.500 8-Szo-125482:30 LIPID PANEL (22221) Comments: PATIENT WAS FASTINGPERFORMED BY: [employer] Sfbtfi2691 [facility] [id number] LDL/HDL Ratio 2.1 {ratio_units} (Normal) Range: 0.0-3.2 [...] Cholesterol, Total 190 mg/dL (Normal) Range: 100-199 4-Jqn-274242:30 METABOLIC PANEL, COMPREHENSIVE Comments: PATIENT WAS FASTINGPERFORMED BY: [facility] Yhtftk1259 [facility] [id number] (61642) ALT (SGPT) 24 [iU]/L (Normal) Range: 0-32 [...] Glucose, Serum 122 mg/dL (Abnormal) Range: 65-99 7-Gqk-575218:30 Vitamin D Hydroxy (07828) Comments: PATIENT WAS FASTINGPERFORMED BY: Austh[employer] SoftwareHawthorn Children'S Psychiatric HospitalUovkmp4494 [facility] [id number] Vitamin D, 25-Hydroxy 25.3 ng/mL (Abnormal) Range: 30.0-100.0 Comments: Vitamin D deficiency has been defined by the [place] of[place]icine and an Endocrine Society practice guideline as alevel of serum 25-OH vitamin D less than 20 ng/mL (1,2).The Endocrine Society went on to further define vitamin Dinsufficiency as a level between 21 and 29 ng/mL (2).1. IOM ([place] of Medicine). 2010. Dietary reference intakes for calcium and D. [place]: The National Academies Press.2. Rachel MF, Yael NC, Dunia HERRERA, et al. Evaluation, treatment, and prevention of vitamin D deficiency: an Endocrine Society clinical practice guideline. JCEM. 2010; 96(7):1911-30. 5-Mmw-110811:30 CBC W/AUTO DIFF WBC Comments: PATIENT WAS FASTINGPERFORMED BY: AxiomaticsGerald Champion Regional Medical CenterIsrypk9440 [facility] [id number] Information: [id number] (07303) Immature Grans (Abs) 0.0 {x10E3/uL} (Normal) Range: [...] 3.77-5.28 WBC 8.2 {x10E3/uL} (Normal) Range: 3.4-10.8 9-Jva-693947:30 serum free light chains Comments: PATIENT WAS FASTINGPERFORMED BY: GreenCloudGeneral [facility] [id number] (86651) [place]/Lambda Ratio,S 0.81 (Normal) Range: 0.26-1.65 Free Lambda Lt Chains,S 17.93 mg/L (Normal) Range: 5.71-26.30 Free [place] Lt Chains,S 14.55 mg/L (Normal) Range: 3.30-19.40 2-Jlg-366239:08 urine immunofixation (53988) Comments: PATIENT NOT FASTINGPERFORMED BY: [employer] [facility] [id number] Information: SRC:UR [id number] DEEPALI Interpretation:U IFEGL (Normal) Comments: 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 4-Mpc-317425:30 serum immunofixation (67914) Comments: PATIENT WAS FASTINGPERFORMED BY: [employer]70 [facility] [id number] Immunoglobulin M, Qn, Serum 99 mg/dL (Normal) Range: 40-230 Immunoglobulin A, Qn, Serum 107 mg/dL (Normal) Range: 91-414 Immunoglobulin G, Qn, Serum 814 mg/dL (Normal) Range: 700-1600 Immunofixation Result, Serum IFEGL (Normal) Comments: Immunofixation shows IgG monoclonal protein with lambda light chainspecificity. 9-Nov-98535:49 CBC W/Diff, Automated Comments: [facility] [address] [place], [address] Absolute Lymph 0.99 {X10_3/ul} (Normal) [...] K/mm3 (Normal) Range: 4.4-11.0 :49 Ferritin Comments: [facility] [address] [place], [address] FERRITIN 80 ng/mL (Normal) Range: 8-252 :49 Hemoglobin A1c Comments: [facility] [address] [place], [address] HGB A1C 6.4 % (Abnormal) Range: 4.2-6.3 :49 Iron Comments: [facility] [address] [place], [address] IRON 43 ug/dL (Abnormal) Range: 50-170 :49 Iron Binding Capacity,Total Comments: [facility] [address] [place], [address] TIBC 336 ug/dL (Normal) Range: 250-450 :49 Protein Electro.Ur-Random Comments: [facility] (refer to report for specific site)refer to report for address and phone number M-SPIKE,U Test not performed (Normal) GAMMA GLOB,U Test not performed (Normal) Comments: Test not performed BETA GLOB,U Test not performed (Normal) Comments: Test not performed PBZME-4-XDHB,U Test not performed (Normal) Comments: Test not performed SQXEW-8-BZKJ,U Test not performed (Normal) Comments: Test not [...] electrophoresis scan will follow via computer,mail, or asset management lead delivery. NOTE: Comment (Normal) Comments: The SPE [...] electrophoresis scan will follow via computer,mail, or asset management lead delivery. A/G RATIO 1.5 (Normal) Range: 0.7-2.0 [...] 6.0-8.5 :49 Thyroid Stim Hormone (TSH) Comments: [facility] [address] [place], [address] TSH 4.43 {uIU/mL} (Abnormal) Range: 0.358-3.74 :49 Vitamin B12 431 pg/mL (Normal) Comments: [facility] [address] [place], [address] Range: 211-911 Comments: ADDENDA: has apt today :58 AFP, Tumor Marker Comments: Is Patient ? [facility] (refer to report for specific site)refer to report for address and phone number AFP TUMOR 2253 4.9 ng/mL (Normal) Range: 0.0-8.3 Comments: Patricia ECLIA methodologyPerformed at: - [facility] [id number] Director: Constantine Christianson PhD, Phone: [phone] :[phone] CBC W/Diff, Automated Comments: [facility] [address] [place], [address] Absolute Lymph 1.46 {X10_3/ul} (Normal) [...] 4.2-5.4 WBC 7.3 K/mm3 (Normal) Range: 4.4-11.0 13-Swa-33394:58 Comprehensive Metabolic Profil Comments: [facility] [address] [place], [place], [address] GAP 7 (Normal) Range: 5-15 CO2 28.0 [...] per A.D.A. criteria. :58 Lipid Profile Comments: [facility] [address] [place], [place], [address] ; non-emergent and has apth this week [...] :58 Vitamin B12 278 pg/mL (Normal) Comments: [facility] [address]tpaavqopq[address] [place], [place], [address] Range: 211-911 :58 Vitamin D,25 Hydroxy Comments: [facility] Hexynogtnj[address] [place], [place], [address] Vitamin D 25-OH 38.4 ng/mL (Normal) Comments: Vitamin D 25(OH) Status Range Deficiency <20 ng/mL (50nmol/L) Insuffciency 20 - 30 ng/mL (50 - 75 nmol/L) Sufficiency 30 - 100 ng/mL (75 - 250 nmol/L) Toxicity >100 ng/mL (>250 nmol/L) [id number] HgA1C , Office (35399) HgA1C , Office 6.5 % (Normal) Range: 4.6 - 7.1 :43 AFP, Tumor Marker Comments: Is Patient ? NTest performed at:[facility] [id number] [facility] [place] [address] AFP TUMOR 2253 4.8 ng/mL (Normal) Range: 0.0-8.3 Comments: [employer] ECLIA methodologyPerformed at: [employer] [facility] [address] [id number] Director: Arnold Jefferson PhD, Phone: [phone] :[phone] CBC W/Diff, Automated Comments: Test performed at:[facility] [id number] [place] [address] Absolute Lymph 1.16 {X10_3/ul} (Normal) [...] :43 Comprehensive Metabolic Profil Comments: Test performed at:[facility] Center Fcexriaung4130 [facility] [place] [address] GAP 11 (Normal) Range: 5-15 [...] criteria. :43 Lipid Profile Comments: Test performed at:[facility] Vfpipoewfc6914 [facility] HilaryDonnie [place], [place] [id number] VLDL 61 mg/dL (Abnormal) Range: 5-40 LDL [...] :43 Microalb:Creat Ratio,Random UR Comments: Test performed at:[facility] [address] [place] [address] MALB:CREAT 15.9 {mg/g_CRE} (Normal) MICROALBUMIN,UR 19.2 mg/L (Normal) UR CREAT 120.3 mg/dL (Normal) :43 Thyroid Stim Hormone (TSH) Comments: Test performed at:[facility] Kw[address] [place] [address] TSH 2.19 {uIU/mL} (Normal) Range: 0.358-3.74 :43 Vitamin B12 261 pg/mL (Normal) Comments: Test performed at:[facility] Ocxoxkzdms[address] [place] [address] Range: 211-911 Comments: ADDENDA: nl and pt has apt tomorrow :43 Vitamin D,25 Hydroxy Comments: Test performed at:[facility] Mq[address] [place] [address] Vitamin D 25-OH 30.9 ng/mL (Normal) Comments: Vitamin D 25(OH) Status Range Deficiency <20 ng/mL (50nmol/L) Insuffciency 20 - 30 ng/mL (50 - 75 nmol/L) Sufficiency 30 - 100 ng/mL (75 - 250 nmol/L) Toxicity >100 ng/mL (>250 nmol/L) :38 HgA1C , Office (92496) HgA1C , Office 6.7 % (Normal) Range: 4.6 - 7.1 :56 AFP, Tumor Marker Comments: Is Patient ? NTest performed at:[facility] Rpsxgbuhxf9330 [facility] [place], [place] [id number] ; appt 02/15 AFP TUMOR 2253 4.8 ng/mL (Normal) Range: 0.0-8.3 Comments: [employer] ECLIA methodologyPerformed at: [employer] [facility] [address] [id number] Director: Arnold Jefferson PhD, Phone: [phone] :[phone] CBC W/Diff, Automated Comments: Test performed at:[facility] Mytmkqarib3462 [facility] [place] [address] Absolute Lymph 2.37 {X10_3/ul} (Normal) [...] 4.4-11.0 :56 Lipid Profile Comments: Test performed at:[facility] [address] [place] [address] VLDL 26 mg/dL (Normal) Range: [...] :56 Partial Thromboplast Time Comments: Test performed at:[facility] Zhukqmerpr6800 [facility] [place] [address] PTT 30.1 s (Normal) Range: 24.1-36.2 :56 Prothrombin Time w/INR Comments: Test performed at:[facility] [address] [place] [address] INR 1.0 (Normal) PROTIME 12.8 s (Normal) Range: 11.7-14.9 :56 Thyroid Stim Hormone (TSH) Comments: Test performed at:[facility] [address] [place] [address] TSH 5.17 {uIU/mL} (Abnormal) Range: 0.358-3.74 :56 Vitamin B12 293 pg/mL (Normal) Comments: Test performed at:[facility] [address] [place] [address] Range: 211-911 :56 Vitamin D,25 Hydroxy Comments: Test performed at:[facility] Xwmnweswcy2493 [facility] [place]. [place] [address] Vitamin D 25-OH 32.0 ng/mL (Normal) Comments: Vitamin D 25(OH) Status Range Deficiency <20 ng/mL (50nmol/L) Insuffciency 20 - 30 ng/mL (50 - 75 nmol/L) Sufficiency 30 - 100 ng/mL (75 - 250 nmol/L) Toxicity >100 ng/mL (>250 nmol/L) :07 HgA1C , Office (38062) HgA1C , Office 6.3 % (Normal) Range: 4.6 - 7.1 :33 CBC W/Diff, Automated Comments: Test performed at:[facility] [address] [place] [id number] ; non- emergent till apt Absolute Lymph [...] :33 Comprehensive Metabolic Profil Comments: Test performed at:[facility] Vhpcnqzsxz5254 [facility]. [place], [place] [id number] GAP 4 (Abnormal) Range: 5-15 CO2 28.0 [...] criteria. :33 Lipid Profile Comments: Test performed at:[facility] Dkroxtiwgj0740 [facility] Nick. [place], [place] [id number] VLDL 29 mg/dL (Normal) Range: 5-40 LDL [...] B12 394 pg/mL (Normal) Comments: Test performed at:[facility] Ofxykgdsmx8082 [facility] [place] [address] Range: 211-911 :33 Vitamin D,25 Hydroxy Comments: Test performed at:[facility] Bwjxhyhoud5631 [facility] [place] [address] Vitamin D 25-OH 39.6 ng/mL (Normal) Comments: Vitamin D 25(OH) Status Range Deficiency <20 ng/mL (50nmol/L) Insuffciency 20 - 30 ng/mL (50 - 75 nmol/L) Sufficiency 30 - 100 ng/mL (75 - 250 nmol/L) Toxicity >100 ng/mL (>250 nmol/L) 16-Jha-134514:10 HgA1C , Office (92350) HgA1C , Office 6.4 % (Normal) Range: [...] CHOL 167 mg/dL (Normal) Comments: <200 mg/dL Hqnszknhb369-672 mg/dL Borderline>240 mg/dL High Risk TRIG 200 mg/dL (Abnormal) Range: 0-199 Comments: Serum Triglycerides Reference IntervalNormal <150 mg/dLBorderline high 150 - 199 mg/dLHigh 200 - 499 mg/ dLVery High > or = 500 mg/dL :42 TIBC 275 ug/dL (Normal) Range: 250-450 :42 TSH 2.12 {uIU/mL} (Normal) Range: 0.358-3.74 42-Szs-546938:10 FERRITIN (57681) Comments: PATIENT NOT FASTINGPERFORMED BY: [employer] [facility] [id number] Ferritin, Serum 133 ng/mL (Normal) Range: 15-150 66-Uto-114179:10 IRON BINDING CAPACITY Comments: PATIENT NOT FASTINGPERFORMED BY: [facility]ix[facility] HospitalWfnvzy1012 [facility] [id number] Information: [id number] (TIBC) (92792) Iron Saturation 20 % (Normal) Range: 15-55 Iron, Serum 62 ug/dL (Normal) Range: 35-155 UIBC 241 ug/dL (Normal) Range: 150-375 Iron Bind.Cap.(TIBC) 303 ug/dL (Normal) Range: 250-450 30-Aoo-615582:10 VITAMIN B-12 (CYANOCOBALAMIN) Comments: PATIENT NOT FASTINGPERFORMED BY: [employer] Zndrag6102 [facility] [id number] (30261) Vitamin B12 421 pg/mL (Normal) Range: 211-946 40-Tuj-479672:10 TSH (39465) Comments: PATIENT NOT FASTINGPERFORMED BY: [facility]Co[facility] Mountain HospitalDrlwnb9931 [facility] [id number] TSH 1.150 {uIU/mL} (Normal) Range: 0.450-4.500 91-Rbk-584244:37 HgA1C , Office (19737) HgA1C , Office 6.1 % (Normal) Range: 4.6 - 7.1 3-Yjc-769220:10 CBC with manual diff Comments: PATIENT WAS FASTINGPERFORMED BY: [employer] Qgogmu7057 [facility] [id number] Information: [id number] (80325) Immature Grans (Abs) 0.0 {x10E3/uL} (Normal) Range: [...] 3.77-5.28 WBC 8.2 {x10E3/uL} (Normal) Range: 3.4-10.8 6-Orw-689371:10 Metabolic Panel, Comprehensive Comments: PATIENT WAS FASTINGPERFORMED BY: [facility]Co[facility] HospitalXyltxf5349 [facility] [id number] (91979) ALT (SGPT) 11 [iU]/L (Normal) Range: 0-32 [...] Glucose, Serum 129 mg/dL (Abnormal) Range: 65-99 0-Nhc-962261:10 Lipid Panel (92568) Comments: PATIENT WAS FASTINGPERFORMED BY: [facility]etixEast [facility] HospitalAwephp1021 [facility] [id number] LDL/HDL Ratio 1.4 {ratio_units} (Normal) Range: 0.0-3.2 [...] METABOLIC PANEL, Comments: PATIENT NOT FASTINGPERFORMED BY: [facility]ix[facility] HospitalAynwrc0636 [facility] [id number] Information: [id number] COMPREHENSIVE (78469) ALT (SGPT) 15 [iU]/L (Normal) Range: 0-32 [...] 133 mg/dL (Abnormal) Range: 65-99 :14 TSH (48059) Comments: PATIENT NOT FASTINGPERFORMED BY: [facility]Co[facility] HospitalGfxzco5476 [facility] [id number] TSH 0.182 {uIU/mL} (Abnormal) Range: 0.450-4.500 :40 [...] CHOL 99 mg/dL (Normal) Comments: <200 mg/dL Kjruvdvlg028-552 mg/dL Borderline>240 mg/dL High Risk :40 MIACRE [...] CHOL 148 mg/dL (Normal) Comments: <200 mg/dL Ioaehzyxc331-106 mg/dL Borderline>240 mg/dL High Risk HDL 46 [...] - 250 nmol/L)Toxicity >100 ng/mL (>250 nmol/L) :27 HgA1C , Office (91430) HgA1C , Office 6.7 % (Normal) Range: 4.6 - 7.1 :17 METABOLIC PANEL, COMPREHENSIVE Comments: PATIENT WAS FASTINGPERFORMED BY: [facility] Obcvnz8697 [facility] [id number] (91081) ALT (SGPT) 16 [iU]/L (Normal) Range: 0-32 [...] mg/dL (Abnormal) Range: 65-99 :17 LIPID PANEL (92145) Comments: PATIENT WAS FASTINGPERFORMED BY: [employer]6370 [facility] [id number] LDL/HDL Ratio 2.0 {ratio_units} (Normal) Range: 0.0-3.2 [...] MANUAL DIFF Comments: PATIENT WAS FASTINGPERFORMED BY: [employer]6370 [facility] [id number] Information: [id number] (21805) Immature Grans (Abs) 0.0 {x10E3/uL} (Normal) Range: [...] B-12 (CYANOCOBALAMIN) Comments: PATIENT WAS FASTINGPERFORMED BY: [employer] [facility] [id number] (75007) Vitamin B12 696 pg/mL (Normal) Range: 211-946 :17 Vitamin D Hydroxy (28160) Comments: PATIENT WAS FASTINGPERFORMED BY: [facility] [id number] Vitamin D, 25-Hydroxy 29.3 ng/mL (Abnormal) Range: 30.0-100.0 Comments: Vitamin D deficiency has been defined by the [place] of[place]icine and an Endocrine Society practice guideline as alevel of serum 25-OH vitamin D less than 20 ng/mL (1,2).The Endocrine Society went on to further define vitamin Dinsufficiency as a level between 21 and 29 ng/mL (2).1. IOM ([place] of Medicine). 2010. Dietary reference intakes for calcium and D. [place]: The National Academies Press.2. Rachel MF, Yael MARLEY, Dunai HERRERA, et al. Evaluation, treatment, and prevention of vitamin D deficiency: an Endocrine Society clinical practice guideline. JCEM. 2010; 96(7):1911-30. 00-Bmq-000852:29 HgA1C , Office (49380) HgA1C , Office 7.0 % (Normal) Range: 4.6 - 7.1 0-Thh-240999:14 B12 794 pg/mL (Normal) Range: 211-911 Comments: Effective 201227-Dec-20126-Rbg-403564:14 VITD 37.5 ng/mL (Normal) Comments: Vitamin D 25(OH) Status RangeDeficiency <20 ng/mL (50nmol/L)Insufficiency 20 - 30 ng/mL (50 - 75 nmol/L)Sufficiency 30 - 100 ng/mL (75 - 250 nm ol/L)Toxicity >100 ng/mL (250 nmol/L)Effective 201201-Dec-20127-Nfw-746550:13 CHEST PA AND LATERAL Radiology Report See [...] Tate D.O.December 01, 2012 at 12:40:54 PM [id number] Signed DS/DS If you are the referring physician and would like to consult with theradiologist who provided this i nterpretation, please contact Eulalio Tate D.O. at [phone]. If this radiologist is unavailable, you will bedirected to another radiologist to assist. If you are a patient with a question regarding t his report, pleasecontactyour referring physician directly. Professional Interpretation Provided By: [employer], Phone , These documents contain legally protected [...] 12/01/12 1244 Sign by: Mack Peterson DO 46-Tuh-498358:20 Upper Respiratory Culture Comments: PATIENT NOT FASTINGPERFORMED BY: [facility] Tofmqd2952 [facility] [id number] Information: SRC: THROAT Result 1 RRF (Normal) Comments: Routine respiratory alton Upper Respiratory Culture Final report (Normal) 67-Hev-434892:06 Rapid Strep Test, Office (07363) Rapid Strep Test, Office Negative (Normal) 41-Gql-441170:32 BILAT SCRN DIGITAL & CAD Radiology Report [...] Wayne M.D.November 18, 2012 at 12:51:57 PM [id number] Signed GP/GP If you are the referring physician and would like to consult with theradiologist who provid ed this interpretation, please contact Lee Claudio at [phone]. If this radiologist is unavailable, youwill be directed to another radiologist to assist. If you are a patient with a ques tion regarding this report, pleasecontactyour referring physician directly. Professional Interpretation Provided By: [employer], Phone , These documents contain legally pr [...] 11/18/12 1254 Sign by: Teo Wayne MD 5-Scm-903158:24 URINE RANI CULTURE-IDENTIFICATN Comments: PATIENT NOT FASTINGPERFORMED BY: [facility]CoEast Mountain HospitalHgmbvy6537 [facility] [id number] Information: [id number] (77690) Result 1 MUG (Normal) Comments: Mixed urogenital flora10,000-25,000 colony forming units per mL Urine Final report (Normal) Culture,Comprehensive 72-Wrp-452400:50 METABOLIC PANEL, Comments: PATIENT NOT FASTINGPERFORMED BY: CB [facility] Xcsdij2975 [facility] [id number] Information: ADD [id number] AND DRAW FEE 99 6660 COMPREHENSIVE (89138) ALT (SGPT) 14 [iU]/L (Normal) Range: 0-32 [...] Glucose, Serum 109 mg/dL (Abnormal) Range: 65-99 2-Lay-587608:42 HgA1C , Office (29906) HgA1C , Office 6.3 % (Normal) Range: 4.6 - 7.1 :04 Microscopic Examination Comments: PATIENT NOT FASTINGPERFORMED BY: [facility] Pfxzlh1317 [address] RoadDublin [place] [id number] Bacteria Few (Normal) Mucus Threads Present (Normal) Cast Type Hyaline casts (Normal) Casts Present {/lpf} (Abnormal) Epithelial Cells (non renal) 0-10 {/hpf} (Normal) Range: 0 - 10 RBC 0-3 {/hpf} (Normal) Range: 0 - 3 WBC 6-10 {/hpf} (Abnormal) Range: 0 - 5 :04 VITAMIN B-12 (CYANOCOBALAMIN) Comments: PATIENT NOT FASTINGPERFORMED BY: CB [facility] Hmtjpr8909 [address] [facility] [place] [id number] (95284) Vitamin B12 1228 pg/mL (Abnormal) Range: 211-946 :04 Vitamin D Hydroxy (81900) Comments: PATIENT NOT FASTINGPERFORMED BY: CB [facility] Sqcwpq4665 [address] [facility] [place] [id number] Vitamin D, 25-Hydroxy 21.9 ng/mL (Abnormal) Range: 30.0-100.0 Comments: Vitamin D deficiency has been defined by the [place] of[facility] and an Endocrine Society practice guideline as alevel of serum 25-OH vitamin D less than 20 ng/mL (1,2).The Endocrine Society went on to further define vitamin Dinsufficiency as a level between 21 and 29 ng/mL (2).1. IOM ([place] of Medicine). 2010. Dietary reference intakes for calcium and D. [place]: The National Academies Press.2. Rachel MF, Yael NC, Dunia HERRERA, et al. Evaluation, treatment, and prevention of vitamin D deficiency: an Endocrine Society clinical practice guideline. JCEM. 2010; 96(7):1911-30. :04 URINALYSIS, W/ MICRO (30354) Comments: PATIENT NOT FASTINGPERFORMED BY: CB [facility] Tpajro[address] [facility] [place] [id number] Microscopic Examination See below: (Normal) Nitrite, Urine Negative (Normal) Bilirubin Negative (Normal) Urobilinogen,Semi-Qn 0.2 mg/dL (Normal) Range: 0.0-1.9 Occult Blood Negative (Normal) Ketones Negative (Normal) Glucose Negative (Normal) Protein Negative (Normal) WBC Esterase 1+ (Abnormal) Appearance Clear (Normal) Urine-Color Yellow (Normal) pH 5.5 (Normal) Range: 5.0-7.5 Specific [place] 1.024 (Normal) Range: 1.005-1.030 72-Jsy-08020:04 CBC WITH MANUAL DIFF Comments: PATIENT NOT FASTINGPERFORMED BY: [facility]Co[facility] HospitalKfqchz1522 [facility] [id number] Information: [id number] (54973) Immature Grans (Abs) 0.0 {x10E3/uL} (Normal) Range: [...] PANEL, COMPREHENSIVE Comments: PATIENT NOT FASTINGPERFORMED BY: [email or web address] [address] [facility] [id number] (36652) ALT (SGPT) 13 [iU]/L (Normal) Range: 0-32 [...] mg/dL (Abnormal) Range: 65-99 :04 LIPID PANEL (99786) Comments: PATIENT NOT FASTINGPERFORMED BY: [employer]6[address] 14[facility] [id number] LDL Cholesterol Calc 103 mg/dL (Abnormal) Range: [...] pg/mL (Normal) Range: 211-946 Comments: Performed at: [address] Director: Arnold Jefferson PhD, Phone: [phone] CMP GAP 9 (Normal) Range: 5-15 [...] 250 nmol/L) Toxicity >100 ng/mL (250 nmol/L)Effective 201215-Aug-201281-Qmc-348190:20 Metabolic Panel, Basic Comments: PATIENT NOT FASTINGPERFORMED BY: [facility] Zlnsvu0564 [facility] [id number] Information: [id number] (66713) Calcium, Serum 10.2 mg/dL (Normal) Range: 8.6-10.2 [...] Glucose, Serum 99 mg/dL (Normal) Range: 65-99 1-Uor-214695:24 Microscopic Examination Comments: PATIENT NOT FASTINGPERFORMED BY: [facility] Cszebe3811 [address] Road[address] [place] [id number] Bacteria Few (Normal) Mucus Threads Present (Normal) Epithelial Cells (non renal) 0-10 {/hpf} (Normal) Range: 0 - 10 RBC 0-3 {/hpf} (Normal) Range: 0 - 3 WBC 6-10 {/hpf} (Abnormal) Range: 0 - 5 :24 Vitamin D Hydroxy (75393) Comments: PATIENT NOT FASTINGPERFORMED BY: [facility] Anqixd0752 [address]er RoadDublin [place] [id number] Vitamin D, 25-Hydroxy 21.7 ng/mL (Abnormal) Range: 30.0-100.0 Comments: Vitamin D deficiency has been defined by the [place] of[facility]cine and an Endocrine Society practice guideline as alevel of serum 25-OH vitamin D less than 20 ng/mL (1,2).The Endocrine Society went on to further define vitamin Dinsufficiency as a level between 21 and 29 ng/mL (2).1. IOM ([place] of Medicine). 2010. Dietary reference intakes for calcium and D. [place]: The National Academies Press.2. Rachel MF, Yael NC, Dunia HERRERA, et al. Evaluation, treatment, and prevention of vitamin D deficiency: an Endocrine Society clinical practice guideline. JCEM. 2010; 96(7):1911-30. 7-Lec-333608:24 VITAMIN B-12 (CYANOCOBALAMIN) Comments: PATIENT NOT FASTINGPERFORMED BY: [facility] Pqlahf9133 [address]er RoadDublin [place] [id number] (20371) Vitamin B12 431 pg/mL (Normal) Range: 211-946 :24 URINALYSIS, W/ MICRO (80017) Comments: PATIENT NOT FASTINGPERFORMED BY: CB [facility] Edsztb6365 [address] RoadDublin [place] [id number] Microscopic Examination MICRON (Normal) Comments: Microscopic follows if indicated. Microscopic Examination See below: (Normal) Nitrite, Urine Negative (Normal) Urobilinogen,Semi-Qn 0.2 mg/dL (Normal) Range: 0.0-1.9 Bilirubin Negative (Normal) Ketones Negative (Normal) Occult Blood Negative (Normal) Glucose Negative (Normal) Protein Negative (Normal) WBC Esterase Negative (Normal) Appearance Clear (Normal) pH 6.5 (Normal) Range: 5.0-7.5 Urine-Color Yellow (Normal) Specific [place] 1.022 (Normal) Range: 1.005-1.030 2-Uec-901485:24 CBC WITH MANUAL DIFF Comments: PATIENT NOT FASTINGPERFORMED BY: [facility]Co[facility] HospitalYxpgyn0356 [facility] [id number] Information: [id number] (94722) Immature Grans (Abs) 0.0 {x10E3/uL} (Normal) Range: [...] 3.77-5.28 WBC 7.9 {x10E3/uL} (Normal) Range: 4.0-10.5 7-Ckh-579082:24 METABOLIC PANEL, COMPREHENSIVE Comments: PATIENT NOT FASTINGPERFORMED BY: [employer] Nnaycu6872 [facility] [id number] (83205) ALT (SGPT) 16 [iU]/L (Normal) Range: 0-32 [...] Glucose, Serum 107 mg/dL (Abnormal) Range: 65-99 6-Zzl-525748:24 TSH (46577) Comments: PATIENT NOT FASTINGPERFORMED BY: [employer] Rizljb9240 [facility] [id number] TSH 2.000 {uIU/mL} Range: 0.450-4.500 (Normal) CCP Antibodies IgG/IgA 1 {units} (Normal) Comments: PATIENT NOT FASTINGPERFORMED BY: [place] [id number] [facility] [id number] BY: [address] [id number] Range: 0-19 Comments: Negative <20 Weak positive 20 - 39 Moderate positive 40 - 59 Strong positive >59 :39 Systemic Lupus Profile Comments: PATIENT NOT FASTINGPERFORMED BY: LabDonna [place] 7027070 [facility] [id number] BY: Lab[address] [id number] Information: [id number] (59911) Anti-DNA (DS) Ab Qn <1 {IU/mL} (Normal) Range: 0-9 Comments: Negative <5 Equivocal 5 - 9 Positive >9 Sjogren's Anti-SS-B 0.5 {AI} (Normal) Range: 0.0-0.9 Sjogren's Anti-SS-A 0.3 {AI} (Normal) Range: 0.0-0.9 Antichromatin Antibodies <0.2 {AI} (Normal) Range: 0.0-0.9 RA Latex Turbid. 8.5 {IU/mL} (Normal) Range: 0.0-13.9 [place] Antibodies <0.2 {AI} (Normal) Range: 0.0-0.9 BLOCK PRESS OPERATOR Antibodies <0.2 {AI} (Normal) Range: 0.0-0.9 :27 HgA1C , Office (56854) HgA1C , Office 6.2 % (Normal) Range: 4.6 - 7.1 :27 Blood Glucose , Office (79223) Blood Glucose , Office 108 (Normal) :45 [...] D deficiency has been defined by the [place] ofMedicine and an Endocrine Society practice guideline as alevel of serum 25-OH vitamin D less than 20 ng/mL (1,2).The Endocrine Society went on to further define vitamin Dinsufficiency as a level between 21 and 29 ng/mL (2).1. IOM ([place] of Medicine). 2010. Dietary reference intakes for calcium and D. [place]: The National Academies Press.2. Rachel MF, Yael MARLEY, Dunia HERRERA, et al. Evaluation, treatment, and prevention of vitamin D deficiency: an Endocrine Society clinical practice guideline. JCEM. 2010; 96(7): 1911-30.Performed at: [facility] [address] [id number] Director: Arnold Jefferson PhD, Phone: [phone] 26-Bqw-884758:59 Blood Glucose , Office (25957) Blood Glucose , Office 131 (Normal) 50-Tio-489801:58 HgA1C , Office (75359) HgA1C , Office 6.8 % (Normal) Range: 4.6 - 7.1 24-Qre-457621:12 CBCMD RBCM NORM C+C {NORMAL} (Normal) PE [...] 4.2-5.4 WBC 7.0 K/mm3 (Normal) Range: 4.4-11.0 92-Tfw-065486:12 CMP GAP 10 (Normal) Range: 5-15 CO2 [...] mg/dL suggests DIABETES MELLITUS per A.D.A. criteria. 75-Aqx-027453:12 LIPID LDL 104 mg/dL (Normal) Range: 0-130 [...] 200-240 mg/dL Borderline >240 mg/dL High Risk 93-Yar-011490:12 TSH 2.08 {uIU/mL} (Normal) Range: 0.358-3.74 89-Uac-987770:12 VITD 34.7 ng/mL (Normal) Range: 30.0-100.0 Comments: Vitamin D deficiency has been defined by the [place] of[facility] and an Endocrine Society practice guideline as alevel of serum 25-OH vitamin D less than 20 ng/mL (1,2).The Endocrine Society went on to further define vitamin Dinsufficiency as a level between 21 and 29 ng/mL (2).1. IOM ([place] of Medicine). 2010. Dietary reference intakes for calcium and D. [place]: The National Academies Press.2. Rachel MF, Yael MARLEY, Dunia HERRERA, et al. Evaluation, treatment, and prevention of vitamin D deficiency: an Endocrine Society clinical practice guideline. JCEM. 2010; 96(7): 1911-30.Performed at: - Lab[address] [id number] Director: Tona Emmanuel MD, Phone: [phone] 15-Xmc-301622:15 HgA1C , Office (71788) HgA1C , Office 5.8 % (Normal) Range: 4.6 - 7.1 85-Wjj-347281:15 Blood Glucose , Office (92305) Blood Glucose , Office 113 (Normal) :30 [...] D deficiency has been defined by the [place] ofMedicine and an Endocrine Society practice guideline as alevel of serum 25-OH vitamin D less than 20 ng/mL (1,2).The Endocrine Society went on to further define vitamin Dinsufficiency as a level between 21 and 29 ng/mL (2).1. IOM ([place]). 2010. Dietary reference intakes for calcium and D. [place]: The National Academies Press.2. Rachel MF, Yael NC, Dunia HERRERA, et al. Evaluation, treatment, and prevention of vitamin D deficiency: an Endocrine Society clinical practice guideline. JCEM. 2010; 96(7): 1911-30.Performed at: [address] [id number] Director: Tona Emmanuel MD, Phone: [phone] 70-Ewf-568431:02 CTA NECK W/WO CONTRAST Radiology Report See [...] ologist regarding this report, please call our [id number] line @ Dictated on 10/08/[address],Davidranscribed on 10/09/11 0856 by ITS IMPORTSign by Juana Wayne MD on 10/09/11 0857 Sign by: Teo Wayne MD 82-Nzm-499568:00 BILAT SCRN DIGITAL & CAD Radiology Report [...] radiologist regarding this report, please call our 64E8pkvyywq line @ Dictated on 09/18/11 1040 by Ori clifton MD,Davidranscribed on 09/20/11 0901 by ITS IMPORTSign by Teo Wayne MD on 09/20/11 0902 Sign by: Teo Wayne MD 75-Cqc-81275:59 DEXA BONE DENSITY STUDY (HP) Radiology Report [...] regarding this re port, please call our 53W1dtkkheo line @ Dictated on 09/18/11 1002 by David Wayne MDranscribed on 09/19/11 1416 by ITS IMPORTSign by Teo Wayne MD on 09/19/11 1417 Sign by: Teo Wayne MD 88-Rwd-728085:17 HgA1C , Office (19924) HgA1C , Office 5.9 % (Normal) Range: 4.6 - 7.1 80-Sji-290616:17 Blood Glucose , Office (68551) Blood Glucose , Office 77 (Normal) :44 [...] >240 mg/dL High Risk :44 VIT D,25 71510 22.3 ng/mL (Abnormal) Range: 30.0-100.0 Comments: Vitamin D deficiency has been defined by the [place] ofMedicine and an Endocrine Society practice guideline as alevel of serum 25-OH vitamin D less than 20 ng/mL (1,2).The Endocrine Society went on to further define vitamin Dinsufficiency as a level between 21 and 29 ng/mL (2).1. IOM ([place]). 2011. Dietary reference intakes for calcium and D. [place]: The National Academies Press.2. Rachel MF, Yael NC, Dunia HERRERA, et al. Evaluation, treatment, and prevention of vitamin D deficiency: an Endocrine Society clinical practice guideline. JCEM. 2010; 96(7): 1911-30.Performed at: - [facility] [id number] Director: Tona Emmanuel MD, Phone: [phone] :[phone] HgA1C , Office (86048) HgA1C , Office 6.6 % (Normal) Range: 4.6 - 7.1 :34 Blood Glucose , Office (52832) Blood Glucose , Office 116 (Normal) :50 [...] 4.2-5.4 WBC 9.3 K/mm3 (Normal) Range: 4.4-11.0 30-May-20118:50 COMP METABOLIC Comments: appt 69433 GAP 10 (Normal) Range: 5-15 CO2 26.0 [...] {uIU/mL} (Normal) Range: 0.358-3.74 :50 VIT D,25 93304 41.3 ng/mL (Normal) Range: 32.0-100.0 Comments: Effective June 18, 2011 Vitamin D, 25-Hydroxy reference intervals will be changing to 30-100. .Recent studies consider the lower li lalo of 32.0 ng/mL to be athreshold for optimal health.Pepito ANNE. J Nutr. 2004;135(2):317-22.Performed at: - [facility] [id number] Director: Tona Emmanuel MD, Phone: [phone] :50 VITAMIN B12 806 pg/mL (Normal) Range: [...] Panel (14) Comments: PATIENT WAS FASTINGPERFORMED BY: [employer]6[facility] [id number] ALT (SGPT) 40 [iU]/L (Normal) Range: 0-40 [...] With LDL/HDL Comments: PATIENT WAS FASTINGPERFORMED BY: [employer]70 [facility] [id number] Ratio LDL Cholesterol Calc 74 mg/dL (Normal) [...] 0.192 {uIU/mL} Comments: PATIENT WAS FASTINGPERFORMED BY: [facility]6370 [facility] [id number] 09 (Abnormal) Range: 0.450-4.500 : Vitamin B12 417 pg/mL (Normal) Comments: PATIENT WAS FASTINGPERFORMED BY: [facility] [id number] Range: 211-946 19-Fci-545665:22 UNILAT LT DIAG DIGITAL & CAD Radiology [...] 02/22/11 0945 by David Wayne MDranscribed on 02/23/110 by ITS IMPORTSign by Teo Wayne MD on 02/23/11 151 Sign by: Teo Wayne MD :58 CBCD,SMEAR [...] {uIU/mL} (Abnormal) Range: 0.358-3.74 :58 VIT D,25 66401 22.0 ng/mL (Abnormal) Comments: appt 10/24/10 Range: 32.0-100.0 Comments: Recent studies consider the lower limit of 32.0 ng/mL to tammy threshold for optimal health.Pepito ANNE. J Nutr. 2004;135(2):317-22.Performed at: - LabCoAmber [place] [id number]Lab Director: Tona Emmanuel MD, Phone: [phone] :58 VITAMIN B12 285 pg/mL (Normal) Range: 254-1320 Comments: There is a low frequency possibility that high titers ofintrinsic blocking antibodies may not be completely inactivated during the reaction pretreatment stepof this testing method. If test results are i n conflictwith the clinical diagnosis, patient should be testedfor the presence of intrinsic factor blocking antibodies. 7-Ftf-034909:42 Thin prep Pap Comments: Source.............Cervical;EndocervicalNo. of containers..01 CYTYC Thin Prep VialPATIENT NOT FASTINGPERFORMED BY: [facility] [address] [id number] Information: [id number] ([id number]) Note: PAPSMR (Normal) Comments: The Pap smear [...] ; Screening for malignant neoplasm of the cervixManikki Montes Panel Instrument Repairer (ASCP) 65-Yfr-443685:26 BREAST UNILATERAL Radiology Report See Note (Normal) Comments: CLINICAL:Female, 70 years old. Densities on mammogram EXAMINATION:Targeted left breast ultrasound TECHNIQUE:High-resolution linear images of the upper two thirds of the left breastwere obtained. COMPARI SON:None. FINDINGS:No solid or cystic mass is identified. IMPRESSION:No ultrasound abnormalities identified. Dictated on 08/24/10 1125 by ANTHONY PALOMARESTranscribed on 08/28/10 1452 by ITS IMPORTSign by ANTHONY PALOMARES on 08/28/10 145 Sign by: ANTHONY PALOMARES :58 UNILAT LT DIAG DIGITAL & CAD Radiology [...] Category 3: Probably Benign Finding - Initial Awqhn-FopwezikWmmihd-lb Suggested. A letter regarding these results will be sent tothepatient by the facility within 30 days. Approximately 10% of breast cancers are not detected by mammography. Anormal mammogram should not delay biopsy of a clinically suspiciousabnormality. Dictated on 08/24/10 1206 by ANTHONY PALOMARESTranscribed on 0 08/24/10 1351 by ITS IMPORTSign by ANTHONY PALOMARES on 08/24/10 1352 Sign by: ANTHONY PALOMARES 07-Iew-76082:43 BILAT SCRN DIGITAL & CAD Radiology Report [...] 08/18/10 1452 Sign by: ANTHONY PALOMARES MD 5-Dro-144422:14 HgA1C , Office (55907) HgA1C , Office 6.5 % (Normal) Range: 4.6 - 7.1 6-Qmu-749649:14 Blood Glucose , Office (94938) Blood Glucose , Office 176 (Normal) 30-Jun-20107:30 [...] CREAT 161.2 mg/dL (Normal) : VIT D,25 88255 27.7 ng/mL Range: 32.0-100.0 30 (Abnormal) Comments: Recent studies consider the lower limit of 32.0 ng/mL to tammy threshold for optimal health.Pepito ANNE. J Nutr. 2004;135(2):317- 22.Performed at: [place] [id number] 296[facility] Director: Tona Emmanuel MD, Phone: [phone] : VITAMIN B12 449 pg/mL (Normal) Range: [...] {units} (Normal) Comments: PATIENT NOT FASTINGPERFORMED BY: [address] [id number] BY: [address] [id number] 0:44 Range: 0-19 Comments: Negative <20 Weak positive 20 - 39 Moderate positive 40 - 59 Strong positive >59 Comment: SPRCS (Normal) Comments: PATIENT NOT FASTINGPERFORMED BY: [address] [id number] BY: [address] [id number] 0:44 Comments: Effective April 25, 2009 order code 779378 CCP IgGAntibodies has been replaced due to an updated reagentversion 3.1. For this reason [facility] has provided youwith a new order code 969878 CCP Antibodies IgG/IgA. 74-Cyq-123925:44 Vitamin D Hydroxy Comments: PATIENT NOT FASTINGPERFORMED BY: [address] [id number] BY: [address] [id number] (19745) Vitamin D, 25-Hydroxy 30.9 ng/mL (Abnormal) Range: 32.0-100.0 Comments: Recent studies consider the lower limit of 32.0 ng/mL to be athreshold for optimal health.Pepito ANNE. J Nutr. 2004;135(2):317-22. 77-Rdz-652153:44 SED RATE ERYTHROCYTE Comments: PATIENT NOT FASTINGPERFORMED BY: [address] [id number] BY: [address] [id number] (01122) Sedimentation Rate-Westergren 4 mm/h (Normal) Range: 0-30 16-Gti-719748:44 C-REACTIVE PROTEIN Comments: PATIENT NOT FASTINGPERFORMED BY: [address] [id number] BY: [address] [id number] (69648) C-Reactive Protein, Quant 2.5 mg/L (Normal) Range: 0.0-4.9 86-Cqo-209985:44 TSH (17454) Comments: PATIENT NOT FASTINGPERFORMED BY: [address] [id number] BY: [address] [id number] TSH 2.050 {uIU/mL} (Normal) Range: 0.450-4.500 67-Her-505172:44 RHEUMATOID FACTOR-QUANT Comments: PATIENT NOT FASTINGPERFORMED BY: [address] RoadDublin [place] [id number] BY: [address] [id number] (44980) RA Latex Turbid. 8.4 {IU/mL} (Normal) Range: 0.0-13.9 48-Xcd-008116:44 MELI (ANTINUCLEAR ANTIBODY) Comments: PATIENT NOT FASTINGPERFORMED BY: LabDon[place] [id number] [facility] [id number] BY: [address] [id number] (93209) MELI Direct Negative (Normal) 55-Slr-799240:44 CBC WITH MANUAL DIFF Comments: PATIENT NOT FASTINGPERFORMED BY: LabDon[place] [address]27070 [facility] [id number] BY: [address] [id number] Inf ormation: ADD [id number] AND DRAW FEE 99 [id number] (92587) Immature Grans (Abs) 0.0 {x10E3/uL} (Normal) Range: [...] 3.80-5.10 WBC 6.8 {x10E3/uL} (Normal) Range: 4.0-10.5 31-Efx-222839:44 METABOLIC PANEL, Comments: PATIENT NOT FASTINGPERFORMED BY: CB [facility] Fzilxk2888 [facility] [id number] BY: BN [facility] [address] [id number] COMPREHENSIVE (26295) ALT (SGPT) 21 [iU]/L (Normal) Range: 0-40 [...] (Abnormal) Range: 65-99 :33 HgA1C , Office (32448) HgA1C , Office 6.8 % (Normal) Range: 4.6 - 7.1 :33 Blood Glucose , Office (13569) Blood Glucose , Office 135 (Normal) :22 [...] CHOL 157 mg/dL (Normal) Comments: <200 mg/dL Zxkoslvhu661-200 mg/dL Borderline>240 mg/dL High Risk :22 LIVER ALB 3.5 g/dL (Normal) Range: 3.4-5.0 ALK P 97 U/L (Normal) Range: 50-136 ALT 21 U/L (Normal) Range: 12-78 AST 16 U/L (Normal) Range: 15-37 D BILI 0.12 mg/dL (Normal) Range: 0.00-0.30 T BILI 0.40 mg/dL (Normal) Range: 0.00-1.00 T PROT 6.5 g/dL (Normal) Range: 6.4-8.2 :22 TSH 1.54 {uIU/mL} Range: 0.358-3.74 (Normal) :22 VIT D,25 20804 36.8 ng/mL (Normal) Range: 32.0-100.0 Comments: Recent studies consider the lower limit of 32.0 ng/mL to tammy threshold for optimal health.Pepito ANNE. J Nutr. 2004;135(2):317-22.Performed at: [address] [id number] 296Lab Director: Tona Emmanuel MD, Phone: [phone] :22 VITAMIN B12 264 pg/mL (Normal) Range: 254-1320 Comments: There is a low frequency possibility that high titers ofintrinsic blocking antibodies may not be completelyinactivated during the reaction pretreatment stepof this testing method. If test results are in conflictwith the clinical diagnosis, patient should be testedfor the presence of intrinsic factor blocking antibodies. : Amylase, Serum 92 U/L (Normal) Comments: PERFORMED BY: [address] [id number] Range: 31-124 :34 CBC With Differential/Platelet Comments: PERFORMED BY: [address] [id number] Baso (Absolute) 0.0 {x10E3/uL} (Normal) Range: 0.0-0.2 [...] 3.80-5.10 WBC 7.5 {x10E3/uL} (Normal) Range: 4.0-10.5 39-Xim-725919:34 Comp. Metabolic Panel (14) Comments: PERFORMED BY: [facility]6370 [facility] [id number] ALT (SGPT) 18 [iU]/L (Normal) Range: 0-40 [...] Serum 57 U/L (Normal) Comments: PERFORMED BY: [facility] [id number] 13:34 Range: 0-59 03-Feb-20109:00 GALLBLADDER Radiology Report See Note (Normal) Comments: Exam Number: [id number] CLINICAL:Epigastric pain and bloating. ABDOMINAL ULTRASOUND TECHNIQUE:Transabdominal [...] hydronephrosis,etiology indeterminate. Reported By: KATHRYN MUNOZ M.D. 3-Dgx-446747:19 CBC WITH MANUAL DIFF Comments: PATIENT NOT FASTINGPERFORMED BY: [employer] Dtajnm3151 [facility] HospitalBreakout CommerceMission Hospital [id number] Information: [id number] (38180) Baso (Absolute) 0.1 {x10E3/uL} (Normal) Range: 0.0-0.2 [...] 3.80-5.10 WBC 9.9 {x10E3/uL} (Normal) Range: 4.0-10.5 5-Vgr-527867:19 METABOLIC PANEL, COMPREHENSIVE Comments: PATIENT NOT FASTINGPERFORMED BY: [facility]CoEast [facility] HospitalXpomgk2648 [facility] [id number] (77694) ALT (SGPT) 19 [iU]/L (Normal) Range: 0-40 [...] Glucose, Serum 83 mg/dL (Normal) Range: 65-99 3-Cbk-866382:20 KNEE,4 OR MORE VIEWS (MT) Radiology Report See Note (Normal) Comments: Exam Number: [id number] CLINICAL:This is a 69-year-old female patient with [...] By: TEO WAYNE :12 HgA1C , Office (99456) HgA1C , Office 7.1 % (Normal) Range: 4.6 - 7.1 :12 Blood Glucose , Office (85397) Blood Glucose , Office 129 (Normal) :45 [...] CHOL 155 mg/dL (Normal) Comments: <200 mg/dL Ktkvrzkvj248-751 mg/dL Borderline>240 mg/dL High Risk :45 VIT D,25 67077 42.5 ng/mL (Normal) Range: 32.0-100.0 Comments: Recent studies consider the lower limit of 32.0 ng/mL to tammy threshold for optimal health.Beyer . J Nutr. 2004;135(2):317-22.Performed at: [employer] [facility] [address] [id number] Director: Tona Emmanuel MD :53 LIPID HDL [...] CHOL 128 mg/dL (Normal) Comments: <200 mg/dL Clynqsytd468-023 mg/dL Borderline>240 mg/dL High Risk :53 MICROALB:CRE UR MALB:CREAT 19.1 {mg/g_CRE} (Normal) MICROALBUMIN,UR 29.1 mg/L (Normal) UR CREAT 152.0 mg/dL (Normal) :53 TSH 0.93 {uIU/mL} (Normal) Range: 0.358-3.74 :53 VIT D, 34482 22.7 ng/mL (Abnormal) Range: 32.0-100.0 Comments: Recent studies consider the lower limit of 32.0 ng/mL to tammy threshold for optimal health.Beyer . J Nutr. 2004;135(2):317-22.Performed At: [facility]BLab[facility] [address] [place] [id number] :53 VITAMIN B12 337 pg/mL (Normal) Range: 254-1320 :09 HgA1C , Office (01444) HgA1C , Office 7.1 % (Normal) Range: 4.6 - 7.1 :09 Blood Glucose , Office (47107) Blood Glucose , Office 108 (Normal) :33 KNEE,4 OR MORE VIEWS (MT) Radiology Report See Note (Normal) Comments: Exam Number: [id number] CLINICAL:Pain X-RAY EXAMINATION RIGHT KNEE TECHNIQUE:Three view(s) [...] Report See Note (Normal) Comments: Exam Number: [id number] CLINICAL:Pain X-RAY EXAMINATION: RIGHT TIBIA AND FIBULA [...] (MT) Radiology See Note Comments: Exam Number: [id number] CLINICAL:Pain X-RAY EXAMINATION: RIGHT FEMUR TECHNIQUE:Two views [...] Visualized femur. Reported By: RAYMOND ARRIAGA M.D. 0-Tqg-078913:43 UNILAT DIA DIGITAL & CAD Radiology Report See Note (Normal) Comments: Exam Number: [id number] MAMMOGRAM, UNILATERAL LEFT DIAGNOSTIC DIGITAL AND CAD HISTORYAbnormal mammogram, left breast. TECHNIQUEFull field digital images were obtained in left true lateral, rolledcranio caudal, and spot mediolateral oblique and craniocaudalprojections. CAD images were reviewed. The current study is compared to the examinations of March 12, 2006,and June 21, 2009. FINDINGSThere is a mewztmku-jl-ypgflv extent of fibroglandular parenchymapresent. There is no [...] wereal so examined with computer-aided detection software ([employer], [employer] Reported By: ANTHONY PALOMARES M.D. 54-Vjl-087569:04 [facility]AT [facility] DIGITAL & CAD Radiology Report See Note (Normal) Comments: Exam Number: [id number] MAMMOGRAM, BILATERAL SCREENING DIGITAL AND CAD HISTORYRoutine [...] werealso examined with computer- aided detection software (Image[employer]iplex, [facility] Reported By: ANTHONY PALOMARES M.D. 48-Epv-366799:03 DEXA BONE DENSITY STUDY () Radiology Report See Note (Normal) Comments: Exam Number: [id number] BONE DENSITOMETRY HISTORYOsteopenia. TECHNIQUE Bone densitometry of the lumbar spine and both hips is now beingperformed. The best criteria for evaluation of osteoporosis is theT-value, which represents the comparison of the patient's bone mass flako expected peak bone mass. For most patients, the mean T-value of P6huaoigt L4 is used to evaluate the lumbar spine. To evalua te the hip,the lower T-value of the femoral neck or total hip is used. FINDINGSIn this patient, the mean T-value of L1 through L4 is 0.3 which isnormal. Bone mineral density is measured at 18.3% greate r than hc4292.Digital lateral view for evaluation of vertebral deformity [...] within normallimits. Reported By: ANTHONY PALOMARES M.D. 85-Ccj-325646:09 BRAIN/HEAD W/WO CONTRAST Radiology Report See Note (Normal) Comments: Exam Number: [id number] CLINICAL:69 year old female with altered mental [...] are present. Reported By: ANTHONY GRIER M.D. 41-Drm-36872:02 CBCD,SMEAR DIFF CELLS COUNTED 100 (Normal) LYMPH [...] mg/dL VLDL 32 mg/dL (Normal) Range: 5-40 37-Fen-81706:02 MICROALB:CRE UR MALB:CREAT 38.4 {mg/g_CRE} (Abnormal) MICROALBUMIN,UR 47.5 mg/L (Normal) UR CREAT 123.4 mg/dL (Normal) 07-Jun-2009 VIT D,25 73982 19.7 ng/mL Range: 32.0-100.0 9:02 (Abnormal) Comments: Recent studies consider the lower limit of 32.0 ng/mL to tammy threshold for optimal health.Pepito ANNE. J Nutr. 2004;135(2):317- 22.Performed At: [facility] [place], [place] [id number] 07-Jun-2009 VITAMIN B12 328 pg/mL (Normal) Range: 254-1320 9:02 11-Feb-2009 Homocyst(e)ine, Plasma 9.8 umol/L (Normal) Comments: PERFORMED BY: [employer] [address] [id number] 14:28 Range: 0.0-15.0 11-Feb-2009 Methylmalonic Acid, 336 nmol/L (Normal) Comments: PERFORMED BY: [employer] [id number] 14:28 Serum Range: 73-376 Comments: The reference range for methylmalonic acid has been set at +3sd abovethe mean for healthy blood bank donors. In the clinical assessment ofpatients with megaloblastic anemias a cutoff of +3sd provides gr eaterspecificity in the diagnosis of the vitamin deficiency states,despite the sacrifice of some sensitivity. 11-Feb-2009 TSH 2.700 {uIU/mL} Comments: PERFORMED BY: LabCoSaint Barnabas Medical CenterAlihakjmtf3718 [facility] [id number] 14:28 (Normal) Range: 0.450-4.500 11-Feb-2009 Vitamin B12 231 pg/mL (Normal) Comments: PERFORMED BY: [facility] Ssshwlmyol8533 [facility] [id number] 14:28 Range: 211-911 3-Gvz-201340:09 HAND,MIN 3 VIEWS (MT) Radiology Report See Note (Normal) Comments: Exam Number: [id number] RIGHT WRIST CLINICAL DATAFell and injured the [...] osteoarthritis right hand. Reported By: FERNANDO TUCKER 7-Rcr-306598:09 WRIST,MIN 3 VIEWS (MT) Radiology Report See Note (Normal) Comments: Exam Number: [id number] RIGHT WRIST CLINICAL DATAFell and injured the [...] PANEL, COMPREHENSIVE Comments: PATIENT WAS FASTINGPERFORMED BY: [facility]6370 [facility] [id number] (51998) A/G Ratio 1.9 (Normal) Range: 1.1-2.5 Albumin, [...] 141 mmol/L (Normal) Range: 135-145 :42 TSH (54935) Comments: PATIENT WAS FASTINGPERFORMED BY: [employer] [facility] [id number] TSH 4.980 {uIU/mL} (Abnormal) Range: 0.450-4.500 :42 MICROALBUMIN: CREATININE RATIO Comments: PATIENT WAS FASTINGPERFORMED BY: [employer] [facility] [id number] (41459) AND (86565) Creatinine, Urine 130.9 mg/dL (Normal) Range: 15.0-278.0 Microalb/Creat Ratio 66.4 {ug/mg_creat} (Abnormal) Range: 0.0-30.0 Microalbumin, Urine 86.9 ug/mL (Abnormal) Range: 0.0-17.0 :42 LIPID PANEL (37043) Comments: PATIENT WAS FASTINGPERFORMED BY: [facility]6370 [facility] [id number] Cholesterol, Total 148 mg/dL (Normal) Range: 100-199 HDL Cholesterol 42 mg/dL (Normal) Comments: According to ATP-III Guidelines, HDL-C >59 mg/dL is considered anegative risk factor for CHD. LDL Cholesterol Calc 78 mg/dL (Normal) Range: 0-99 LDL/HDL Ratio 1.9 {ratio_units} (Normal) Range: 0.0-3.2 Triglycerides 141 mg/dL (Normal) Range: 0-149 VLDL Cholesterol Priscilla 28 mg/dL (Normal) Range: 5-40 :42 CBC WITH MANUAL DIFF (24586) Comments: PATIENT WAS FASTINGClinical Information: ADD DRAW FEE 222374 ADD J 88450 PERFORMED BY: [employer] Rrpjvb3012 [facility] [id number] Baso (Absolute) 0.1 {x10E3/uL} (Normal) Range: 0.0-0.2 [...] B-12 (CYANOCOBALAMIN) Comments: PATIENT WAS FASTINGPERFORMED BY: LabCoTraci [place]ille 4281570 [facility] [id number] (21682) Vitamin B12 232 pg/mL (Normal) Range: 211-911 9-Qjl-227160:06 Blood Glucose , Office (61171) Blood Glucose , Office 155 (Normal) :27 [...] 47-70 WBC 8.7 K/mm3 (Normal) Range: 4.4-11.0 30-Kow-88046:27 COMP METABOLIC A/G 1.1 {RATIO} (Normal) Range: [...] :06 TSH 2.34 {uIU/mL} (Normal) Range: 0.34-4.82 3-Hie-693700:27 HgA1C , Office (38286) Comments: done>Wf. HgA1C , Office 6.2 % (Normal) Range: 4.6 - 7.1 :27 Blood Glucose , Office (12959) Comments: done>Wf. Blood Glucose , Office 152 (Normal) 9-Yti-757192:55 CBCD BASO% 0.9 % (Normal) Range: 0-1 [...] 11.6-14.6 WBC 7.5 K/mm3 (Normal) Range: 4.4-11.0 0-Pas-749353:55 COMP METABOLIC A/G 1.2 {RATIO} (Normal) Range: [...] for patient's is the eGFRmultiplied by 1.212. [facility] Laboratory uses the abbreviated Modification of [...] Disease W/O Kidney Disease>/= 90 Stage One Dawyub55 - 89 Stage Two Suspect Decrease d [...] T PROT 7.3 g/dL (Normal) Range: 6.4-8.2 5-Lfl-128487:55 LIPID CHOL 287 mg/dL (Abnormal) Comments: <200 [...] mg/dL VLDL 50 mg/dL (Abnormal) Range: -40 9-Ula-963631:55 MICROALB:CRE UR MALB:CREAT 28.3 {mg/g_CRE} (Normal) MICROALBUMIN,UR 41.7 mg/L (Normal) UR CREAT 147.6 mg/dL (Normal) 1-Dst-024091:55 TSH 5.53 {uIU/mL} (Abnormal) Range: 0.34-4.82 74-Jqo-810422:25 TSH 0.16 {uIU/mL} (Abnormal) Range: 0.34-4.82 04-Vvu-225466:31 HgA1C , Office (43349) Comments: done km HgA1C , Office 6.5 % (Normal) Range: 4.6 - 7.1 :31 Blood Glucose , Office (19124) Comments: done Blood Glucose , Office 128 (Normal) 24-Pvm-472908:01 TSH 5.15 {uIU/mL} (Abnormal) Range: 0.34-4.82 :12 HgA1C , Office (15898) Comments: done HgA1C , Office 6.2 % (Normal) Range: 4.6 - 7.1 :12 Blood Glucose , Office (70369) Comments: done Blood Glucose , Office 187 [...] Serum 117 ng/mL (Normal) Comments: PERFORMED BY: AxiomaticsEast Mountain HospitalListpv7305 [facility] [id number] Range: 10-291 :33 Iron and TIBC Comments: PERFORMED BY: [facility] SoftwareMary [facility] Bed Rehabilitation Hospital6370 [facility] [id number] Iron Bind.Cap.(TIBC) 304 ug/dL (Normal) Range: 250-450 Iron Saturation 26 % (Normal) Range: 15-55 Iron, Serum 78 ug/dL (Normal) Range: 35-155 UIBC 226 ug/dL (Normal) Range: 150-375 : Vitamin B12 412 pg/mL (Normal) Comments: PERFORMED BY: AxiomaticsGerald Champion Regional Medical CenterQybasi1866 [facility] [id number] 33 Range: 211-911 :56 LIPID CHOL 222 [...] (Normal) Range: 6.4-8.2 :07 HgA1C , Office (12821) Comments: done km HgA1C , Office 5.9 % (Normal) Range: 4.6 - 7.1 2-Fcw-225339:07 Blood Glucose , Office (91330) Comments: done km Blood Glucose , Office [...] mg/dL (Abnormal) Range: 34-200 Comments: Performed At: [facility] [place], [place] [id number] 98-Pzd-039345:08 IRON+TIBC IRON SATURATION 17.9 % (Normal) Range: 15.0-55.0 IRON, SERUM 52 ug/dL (Normal) Range: 35-150 TIBC 290 ug/dL (Normal) Range: 250-450 54-Egf-158026:08 LDH 151 U/L (Normal) Range: 100-190 21-Jbm-041487:08 RETIC 1.77 % (Abnormal) Range: 0.5-1.5 :08 [...] mg/dL (Normal) Range: 34-200 Comments: Performed At: [address] [id number] :56 IRON+TIBC IRON SATURATION 17.1 % (Normal) [...] OR 'R' FOR RANDOM: 3 Range: 21-215 3-Swf-492137:15 CPKMB 0.5 ng/mL (Normal) Comments: Precautions*: NOT [...] 1.49 INDETERMINANT > OR = 1.50 SUGGEST W[place] :05 CPK TOTAL 149 U/L (Normal) Comments: [...] 1.49 INDETERMINANT > OR = 1.50 SUGGEST WY :15 PRO TIME Comments: Precautions*: NOT APPLICABLE INR 1.0 (Normal) PROTIME 12.6 s (Normal) Range: 11.7-13.3 :15 TROPONIN-I < 0.04 ng/mL (Normal) Comments: Precautions*: NOT APPLICABLE Comments: TROPONIN-I EXPECTED VALUES < 0.50 NEGATIVE 0.50 - 1.49 INDETERMINANT > OR = 1.50 SUGGEST WY :00 BMP Comments: COMMENTS: FEARONPrecautions*: NOT APPLICABLEINDICATE [...] 1.49 INDETERMINANT > OR = 1.50 SUGGEST WY :48 HgA1C , Office (58930) HgA1C , Office 6.4 % (Normal) Range: 4.6 - 7.1 :48 Blood Glucose , Office (57880) Blood Glucose , Office 113 (Normal) Plan [...] Indication: Double vision Double vision : Reviewed Feeder/Folder Letter Indication: Double vision Fatty liver : [...] BMI 36.0-36.9,adult Right hip pain : Reviewed Feeder/Folder Letter Indication: Right hip pain Right hip [...] (monoclonal gammopathy of unknown significance) : Reviewed Feeder/Folder Letter- stable and discharged from onc Indication: [...] Fall down steps, initial encounter : Reviewed Feeder/Folder Letter Indication: Fall down steps, initial encounter [...] infarction, unspecified Cerebral infarction, unspecified : Reviewed Feeder/Folder Letter Indication: Cerebral infarction, unspecified Upper respiratory [...] Planned Observations CBC, PLATELETS & AUT DIFF (42788)Indication: Other vitamin B12 deficiency anemia On: :17 Request TSH (33373)Indication: Abnormal TSH On: :38 Request T4, FREE (THYROXINE) (65299)Indication: Abnormal TSH On: :38 Request T3, FREE (TRIDOTHYRONINE) (31520)Indication: Abnormal TSH On: :38 Request ANTI-LIVER/KIDNEY MICROSOMAL ANTIBODY (54546)Indication: Elevated liver enzymes On: 04-Vbv-859746:34 Request TSH (46727)Indication: Abnormal TSH On: :31 Request T4, FREE (THYROXINE) (30028)Indication: Abnormal TSH On: 24-Fiq-625447:31 Request T3, FREE (TRIDOTHYRONINE) (01781)Indication: Abnormal TSH On: 34-Mkg-546903:31 Request BETA-2 MICROGLOBULIN (64428)Indication: Abnormal blood chemistry On: 52-Nai-263564:08 Request Urinalysis, Office (00939)Indication: Urinary frequency On: 93-Mkq-989699:38 Request CBC WITH MANUAL DIFF (25740)Indication: Therapeutic drug monitoring On: :57 Request Metabolic Panel, Basic (74436)Indication: Therapeutic drug monitoring On: :57 Request Methymalonic Acid, Serum (80526)Indication: Vitamin B 12 deficiency On: 26-Ipq-238481:51 Request CALCIFIDIOL ([id number]) VIT D 25Indication: Vitamin D deficiency, unspecified On: 53-Awh-251389:45 Request LIPID PANEL ([id number])Indication: Other and unspecified hyperlipidemia On: 83-Zdv-788894:45 Request CALCIFIDIOL ([id number]) VIT D 25Indication: Uncontrolled type II diabetes mellitus On: :46 Request TSH ([id number])Indication: Uncontrolled type II diabetes mellitus On: :46 Request URINALYSIS, W/ MICRO ([id number])Indication: Uncontrolled type II diabetes mellitus On: :46 Request MICROALBUMIN: CREATININE RATIO ([id number]) AND (98152)Indication: Uncontrolled type II diabetes mellitus On: :46 Request METABOLIC PANEL, COMPREHENSIVE (44455)Indication: Uncontrolled type II diabetes mellitus On: :46 Request LIPID PANEL (39237)Indication: Uncontrolled type II diabetes mellitus On: :45 Request CBC W/AUTO DIFF WBC (65471)Indication: Uncontrolled type II diabetes mellitus On: :45 Request Rapid Flu (36906 x 2)Indication: Flu-like symptoms On: 46-Khi-083648:12 Request VITAMIN B-12 (CYANOCOBALAMIN) (95796)Indication: Vitamin B 12 deficiency On: 28-Xfa-651425:45 Request FECAL OCCULT- Tubes sent home (04427)Indication: Encounter for screening for malignant neoplasm of colon (Renamed from Special screening for malignant neoplasms, colon) On: 67-Tzr-098528:35 Request THYROXINE FREE (80666)Indication: Tachycardia On: 1-Iiq-053193:04 Request FREE TRIDOTHYRONINE (T3) (55811)Indication: Tachycardia On: 3-Xpr-070122:04 Request TSH (THYROID STIMULATING HORMONE) (51972)Indication: Tachycardia On: 4-Dun-723465:04 Request serum immunofixation (47674)Indication: MGUS (monoclonal gammopathy of unknown significance) On: 91-Dcj-356693:14 Request urine immunofixation (74986)Indication: MGUS (monoclonal gammopathy of unknown significance) On: 33-Gyv-170547:14 Request serum free light chains (97867)Indication: MGUS (monoclonal gammopathy of unknown significance) On: 78-Pzg-681970:14 Request CBC W/AUTO DIFF WBC (17443)Indication: Diabetes mellitus type 2, controlled On: :13 Request MICROALBUMIN: CREATININE RATIO (23547) AND (33640)Indication: Diabetes mellitus type 2, controlled On: :13 Request METABOLIC PANEL, COMPREHENSIVE (31768)Indication: Diabetes mellitus type 2, controlled On: :13 Request LIPID PANEL (29705)Indication: Mixed hyperlipidemia On: 58-Xvz-977681:13 Request VITAMIN B-12 (CYANOCOBALAMIN) (50311)Indication: Other vitamin B12 deficiency anemia On: 36-Ihn-121043:12 Request CBC (AUTO) ([id number])Indication: Other vitamin B12 deficiency anemia On: 44-Pvm-057531:12 Request Vitamin D Hydroxy (91382)Indication: Vitamin D deficiency, unspecified On: 68-Pbn-333971:12 Request LIPID PANEL (62938)Indication: Mixed hyperlipidemia On: :42 Request METABOLIC PANEL, COMPREHENSIVE (95708)Indication: Benign essential hypertension (Renamed from Benign essential HTN) On: :41 Request MICROALBUMIN: CREATININE RATIO (87970) AND (75186)Indication: Benign essential hypertension (Renamed from Benign essential HTN) On: :41 Request SPEP ([id number])Indication: Anemia, unspecified On: 11-Bsz-403759:17 Request UPEP (22989)Indication: Anemia, unspecified On: 02-Qqq-846324:17 Request CBC W/AUTO DIFF WBC (93235)Indication: Iron (Fe) deficiency anemia On: 5-Uuk-633108:38 Request TSH (94057)Indication: Acquired hypothyroidism On: 9-Fgs-384427:38 Request TSH (39156)Indication: Acquired hypothyroidism On: :34 Request SPEP (00090)Indication: Iron (Fe) deficiency anemia On: :34 Request UPEP (79784)Indication: Iron (Fe) deficiency anemia On: :34 Request IRON BINDING CAPACITY (TIBC) (42161)Indication: Iron (Fe) deficiency anemia On: :34 Request FERRITIN (97888)Indication: Iron (Fe) deficiency anemia On: :34 Request IRON (02839)Indication: Iron (Fe) deficiency anemia On: :34 Request CBC, PLATELETS & AUT DIFF ([id number])Indication: Other vitamin B12 deficiency anemia On: :34 Request VITAMIN B-12 (CYANOCOBALAMIN) (87622)Indication: Other vitamin B12 deficiency anemia On: :33 Request Hemoglobin Glyclated (HGB A1C) (88747)Indication: Diabetes mellitus type 2, controlled On: :33 Request CBC, PLATELETS & AUT DIFF (33089)Indication: Other vitamin B12 deficiency anemia On: 14-Pkb-298513:31 Request VITAMIN B-12 (CYANOCOBALAMIN) (25478)Indication: Other vitamin B12 deficiency anemia On: :30 Request METABOLIC PANEL, COMPREHENSIVE (42275)Indication: Benign essential hypertension (Renamed from Benign essential HTN) On: :30 Request LIPID PANEL (21568)Indication: Other and unspecified hyperlipidemia On: :30 Request Vitamin D Hydroxy (88735)Indication: Vitamin D deficiency, unspecified On: :30 Request ACBYC-SBALFHIJYJI-BQBOA ([id number])Indication: Fatty liver On: :30 Request XIBCL-UUPOQHGFTHK-CVBFT ([id number])Indication: Fatty liver On: 21-Vim-517113:24 Request LIPID PANEL (54325)Indication: Mixed hyperlipidemia On: :23 Request TSH (62279)Indication: Acquired hypothyroidism On: :23 Request MICROALBUMIN: CREATININE RATIO (48404) AND (68192)Indication: Diabetes mellitus type 2, controlled On: : Request METABOLIC PANEL, COMPREHENSIVE (81570)Indication: Diabetes mellitus type 2, controlled On: : Request Vitamin D Hydroxy (35703)Indication: Vitamin D deficiency, unspecified On: : Request CBC, PLATELETS & AUT DIFF (35091)Indication: Other vitamin B12 deficiency anemia On: Request VITAMIN B-12 (CYANOCOBALAMIN) (39863)Indication: Other vitamin B12 deficiency anemia On: : Request Vitamin D Hydroxy (16082)Indication: Vitamin D deficiency, unspecified On: Request VITAMIN B-12 (CYANOCOBALAMIN) (94755)Indication: Other vitamin B12 deficiency anemia On: Request CBC W/AUTO DIFF WBC (01675)Indication: Other vitamin B12 deficiency anemia On: Request TSH (22836)Indication: Acquired hypothyroidism On: 37 Request LIPID PANEL (29628)Indication: Mixed hyperlipidemia On: Request FGHKM-YFBAWMZDRXJ-YFNJV (91542)Indication: Fatty liver On: :08 Request PTT (Activated Partial Thromboplastin Time) (75845)Indication: Fatty liver On: : Request PT (Prothrobim Time) (04791)Indication: Fatty liver On: : Request Vitamin D Hydroxy (56080)Indication: Vitamin D deficiency, unspecified On: : Request VITAMIN B-12 (CYANOCOBALAMIN) (80152)Indication: Other vitamin B12 deficiency anemia On: : Request CBC W/AUTO DIFF WBC (54023)Indication: Diabetes mellitus type 2, controlled On: : Request METABOLIC PANEL, COMPREHENSIVE (78039)Indication: Diabetes mellitus type 2, controlled On: : Request LIPID PANEL (52034)Indication: Mixed hyperlipidemia On: : Request LIPID PANEL (10820)Indication: HYPERTENSION, NOS On: 8-Lfg-044102:40 Request CBC WITH MANUAL DIFF (03050)Indication: HYPERTENSION, NOS On: 9-Atr-480587:40 Request METABOLIC PANEL, COMPREHENSIVE (50238)Indication: HYPERTENSION, NOS On: 6-Yur-451507:40 Request FECAL OCCULT- Tubes sent home (80367)Indication: Anemia, unspecified On: 08-Rdy-545910:38 Request IRON (80951)Indication: Anemia, unspecified On: 00-Uui-239751:38 Request CBC WITH MANUAL DIFF (25011)Indication: HYPERTENSION, NOS On: 3-Yhl-295239:29 Request METABOLIC PANEL, COMPREHENSIVE (90442)Indication: Uncontrolled type II diabetes mellitus On: 8-Fga-066837:28 Request TSH (THYROID STIMULATING HORMONE) (73056)Indication: Acquired hypothyroidism On: 63-Htz-152642:08 Request HgA1C , Office (75494)Indication: Diabetes mellitus type 2, controlled On: 09-Uxo-412053:55 Request VITAMIN B-12 (CYANOCOBALAMIN) (02315)Indication: Other vitamin B12 deficiency anemia On: 0-Bvx-146624:17 Request LIPID PANEL (28031)Indication: Other and unspecified hyperlipidemia On: 7-Lus-281664:17 Request MICROALBUMIN: CREATININE RATIO (95516) AND (75594)Indication: Uncontrolled type II diabetes mellitus On: 2-Btb-218028:17 Request METABOLIC PANEL, COMPREHENSIVE (49177)Indication: Uncontrolled type II diabetes mellitus On: 2-Czo-486788:17 Request HgA1C , Office (00181)Indication: Diabetes mellitus type 2, controlled On: 04-Vpd-966449:25 Request LIPID PANEL (14739)Indication: Other and unspecified hyperlipidemia On: 29-Zne-405450:11 Request METABOLIC PANEL, COMPREHENSIVE (43048)Indication: Diabetes mellitus type 2, controlled On: 88-Nbb-433410:11 Request MICROALBUMIN: CREATININE RATIO (63188) AND (87003)Indication: Diabetes mellitus type 2, controlled On: 24-Euu-065367:11 Request VITAMIN B-12 (CYANOCOBALAMIN) (87621)Indication: Other vitamin B12 deficiency anemia On: 35-Esi-011225:11 Request CBC, PLATELETS & AUT DIFF ([id number])Indication: Other vitamin B12 deficiency anemia On: 37-Wms-212843:11 Request Vitamin D Hydroxy (99118)Indication: Vitamin D deficiency, unspecified On: 59-Cgb-831913:10 Request Blood Glucose , Office (95505)Indication: Diabetes mellitus type 2, controlled On: :29 Request LIPID PANEL (73711)Indication: Other and unspecified hyperlipidemia On: : Request Vitamin D Hydroxy (10454)Indication: Vitamin D deficiency, unspecified On: : Request VITAMIN B-12 (CYANOCOBALAMIN) (99116)Indication: Other vitamin B12 deficiency anemia On: : Request METABOLIC PANEL, COMPREHENSIVE (45258)Indication: Benign essential hypertension (Renamed from Benign essential HTN) On: : Request MICROALBUMIN: CREATININE RATIO (41585) AND (22774)Indication: Uncontrolled type II diabetes mellitus On: : Request Sputum Culture (57635)Indication: Chronic cough On: 1-Fur-298995:58 Request RANI CULTURE-OTHER (00943)Indication: Sore throat On: 58-Bxd-321200:06 Request Urinalysis, Office (29525)Indication: Abnormal urine On: 3-Yze-684793:14 Request RANI CULTURE-OTHER (07963)Indication: Abnormal urine On: 1-Yib-540935:14 Request CCP ANTIBODY (76403)Indication: History of poliomyelitis (Renamed from H/O acute poliomyelitis) On: 9-Mxe-352837:22 Request ANTI-Sm (ANTI [place] ANTIBODY) (20970) test code 007044Aggjpqgdyx: History of poliomyelitis (Renamed from H/O acute poliomyelitis) On: 0-Dek-425956:22 Request RHEUMATOID FACTOR-QUANT (73918) test code 496328Pwfdfixxub: History of poliomyelitis (Renamed from H/O acute poliomyelitis) On: 5-Okb-622880:22 Request Vitamin D Hydroxy (09924)Indication: Vitamin D deficiency, unspecified On: 65-Ojp-186057:15 Request LIPID PANEL (56960)Indication: Other and unspecified hyperlipidemia On: 35-Kko-397632:15 Request TSH (01251)Indication: Acquired hypothyroidism On: 26-Rfa-277125:15 Request METABOLIC PANEL, COMPREHENSIVE (47636)Indication: Diabetes mellitus type 2, controlled On: 75-Pvf-894013:14 Request VITAMIN B-12 (CYANOCOBALAMIN) (19813)Indication: Other vitamin B12 deficiency anemia On: 70-Nhj-920357:08 Request MICROALBUMIN: CREATININE RATIO (91027) AND (34639)Indication: Uncontrolled type II diabetes mellitus On: 95-Mjq-932660:30 Request METABOLIC PANEL, COMPREHENSIVE (65720)Indication: Uncontrolled type II diabetes mellitus On: 31-Klk-820736:30 Request TSH (54885)Indication: Acquired hypothyroidism On: 55-Wqv-873883:30 Request Vitamin D Hydroxy (56829)Indication: Vitamin D deficiency, unspecified On: :30 Request LIPID PANEL (17243)Indication: Other and unspecified hyperlipidemia On: 85-Cao-028890:29 Request LIPID PANEL (65764)Indication: Other and unspecified hyperlipidemia On: 16-Oet-897769:51 Request TSH (32028)Indication: Acquired hypothyroidism On: 89-Afb-272668:50 Request Vitamin D Hydroxy (65767)Indication: Vitamin D deficiency, unspecified On: 91-Uyy-810251:50 Request CBC WITH MANUAL DIFF (40618)Indication: Diabetes mellitus type 2, controlled On: 09-Kqn-159076:50 Request METABOLIC PANEL, COMPREHENSIVE (90647)Indication: Diabetes mellitus type 2, controlled On: 15-Muw-737189:50 Request Vitamin D Hydroxy (86137)Indication: Vitamin D deficiency, unspecified On: 81-Prh-279920:44 Request VITAMIN B-12 (CYANOCOBALAMIN) (29446)Indication: Other vitamin B12 deficiency anemia On: 30-Tvh-169329:44 Request CBC WITH MANUAL DIFF ([id number])Indication: Anemia, unspecified On: 50-Vsg-452010:43 Request METABOLIC PANEL, COMPREHENSIVE (18532)Indication: Diabetes mellitus type 2, controlled On: 80-Yjk-124588:43 Request MICROALBUMIN: CREATININE RATIO (56930) AND (29119)Indication: Diabetes mellitus type 2, controlled On: 33-Hgt-090640:43 Request LIPID PANEL (90362)Indication: Other and unspecified hyperlipidemia On: 35-Hpj-128723:43 Request TSH (52729)Indication: Acquired hypothyroidism On: 08-Mlg-061445:43 Request Vitamin D Hydroxy (65592)Indication: Vitamin D deficiency, unspecified On: : Request LIPID PANEL (21720)Indication: Other and unspecified hyperlipidemia On: : Request CBC WITH MANUAL DIFF (65648)Indication: Diabetes mellitus type 2, controlled On: : Request METABOLIC PANEL, COMPREHENSIVE (97403)Indication: Diabetes mellitus type 2, controlled On: : Request VITAMIN B-12 (CYANOCOBALAMIN) (62393)Indication: Other vitamin B12 deficiency anemia On: 8-Lqt-469759:36 Request Comments: Lot #[id number]-left deltoidDose-1 mlgiven by: Dani Rivera LPN LIPID PANEL (76151)Indication: Other and unspecified hyperlipidemia On: : Request METABOLIC PANEL, COMPREHENSIVE (40325)Indication: Uncontrolled type II diabetes mellitus On: :28 Request TSH (65557)Indication: Acquired hypothyroidism On: :28 Request Vitamin D Hydroxy (04704)Indication: Vitamin D deficiency, unspecified On: : Request CBC WITH MANUAL DIFF ([id number])Indication: Anemia, unspecified On: : Request CBC WITH MANUAL DIFF (93075)Indication: Other vitamin B12 deficiency anemia On: :20 Request Blood Glucose , Office (67764)Indication: Uncontrolled type II diabetes mellitus On: :15 Request Comments: 149 HgA1C , Office (11880)Indication: Uncontrolled type II diabetes mellitus On: :15 Request METABOLIC PANEL, COMPREHENSIVE (96739)Indication: Other and unspecified hyperlipidemia On: : Request LIPID PANEL (21831)Indication: Other and unspecified hyperlipidemia On: : Request TSH (17581)Indication: Acquired hypothyroidism On: : Request HEMOGLOBIN GLYCLATED (HGB A1C) (24539)Indication: Abnormal glucose tolerance test On: 87-Huk-591072:20 Request VITAMIN B-12 (CYANOCOBALAMIN) (03872)Indication: Other vitamin B12 deficiency anemia On: 15-Toh-958677:17 Request Vitamin D Hydroxy (73724)Indication: Vitamin D deficiency, unspecified On: 6-Dud-763763:21 Request VITAMIN B-12 (CYANOCOBALAMIN) (01919)Indication: Other vitamin B12 deficiency anemia On: :20 Request LIPID PANEL (10265)Indication: Abnormal glucose tolerance test On: :20 Request CBC WITH MANUAL DIFF (24655)Indication: Abnormal glucose tolerance test On: :20 Request METABOLIC PANEL, COMPREHENSIVE (87598)Indication: Abnormal glucose tolerance test On: :20 Request METABOLIC PANEL, COMPREHENSIVE (25057)Indication: Abnormal glucose tolerance test On: 9-Szn-349130:59 Request CBC WITH MANUAL DIFF (32428)Indication: Abnormal glucose tolerance test On: 3-Ced-342959:59 Request Vitamin D Hydroxy (16552)Indication: Vitamin D deficiency, unspecified On: 4-Kbn-752647:59 Request VITAMIN B-12 (CYANOCOBALAMIN) (82255)Indication: Other vitamin B12 deficiency anemia On: 2-Znq-281335:59 Request TSH (11598)Indication: Acquired hypothyroidism On: 9-Flg-626393:58 Request LIPID PANEL (98649)Indication: Other and unspecified hyperlipidemia On: 2-Tlb-428705:58 Request CCP ANTIBODY (72692)Indication: Pain in unspecified joint On: 05-Sic-609770:22 Request VITAMIN B-12 (CYANOCOBALAMIN) (49008)Indication: Other vitamin B12 deficiency anemia On: 9-Ehy-101583:10 Request Vitamin D Hydroxy (21245)Indication: Vitamin D deficiency, unspecified On: 7-Fvn-139486:10 Request MICROALBUMIN: CREATININE RATIO (72339) AND (92216)Indication: Uncontrolled type II diabetes mellitus On: 7-Rgi-729983:10 Request CBC WITH MANUAL DIFF (12737)Indication: Uncontrolled type II diabetes mellitus On: 9-Tsg-608640:10 Request METABOLIC PANEL, COMPREHENSIVE (95045)Indication: Benign essential hypertension (Renamed from Benign essential HTN) On: 5-Urc-118793:09 Request LIPID PANEL (14643)Indication: Other and unspecified hyperlipidemia On: 0-Efy-859344:09 Request TSH (92442)Indication: Acquired hypothyroidism On: 4-Rts-306221:39 Request VITAMIN B-12 (CYANOCOBALAMIN) (99774)Indication: Other vitamin B12 deficiency anemia On: 0-Llr-706487:37 Request HEPATIC FUNCTION PANEL (61463)Indication: Other and unspecified hyperlipidemia On: 1-Wyw-192609:36 Request LIPID PANEL (01822)Indication: Other and unspecified hyperlipidemia On: 6-Vqz-053327:36 Request Vitamin D Hydroxy (12480)Indication: Vitamin D deficiency, unspecified On: 6-Cdq-544411:36 Request METABOLIC PANEL, COMPREHENSIVE (53588)Indication: Benign essential hypertension (Renamed from Benign essential HTN) On: 3-Rwa-261970:35 Request LIPID PANEL (92375)Indication: Other and unspecified hyperlipidemia On: 4-Jvt-441512:35 Request Vitamin D Hydroxy (56877)Indication: Vitamin D deficiency, unspecified On: 9-Txc-762045:30 Request Vitamin D Hydroxy (23816)Indication: Vitamin D deficiency, unspecified On: 42-Bji-837010:10 Request MICROALBUMIN: CREATININE RATIO (51786) AND (39379)Indication: Uncontrolled type II diabetes mellitus On: 56-Skx-988173:07 Request LIPID PANEL (05287)Indication: Other and unspecified hyperlipidemia On: 54-Klb-337521:07 Request TSH (60951)Indication: Acquired hypothyroidism On: 38-Xwm-243007:07 Request VITAMIN B-12 (CYANOCOBALAMIN) (89868)Indication: Other vitamin B12 deficiency anemia On: 73-Jgd-321770:42 Request Vitamin D Hydroxy (82112)Indication: Vitamin D deficiency, unspecified On: 51-Vkq-493710:50 Request IRON BINDING CAPACITY (TIBC) (14297)Indication: Iron (Fe) deficiency anemia On: 78-Fyu-507940:50 Request LDH (LD) (LACTATE DEHYDROGENASE) (88278)Indication: Iron (Fe) deficiency anemia On: 43-Qyv-049834:50 Request FERRITIN (00004)Indication: Iron (Fe) deficiency anemia On: 51-Ayc-761615:50 Request IRON (10231)Indication: Iron (Fe) deficiency anemia On: :50 Request CBC WITH MANUAL DIFF (72992)Indication: Iron (Fe) deficiency anemia On: 77-Byu-389674:50 Request HEPATIC FUNCTION PANEL (65950)Indication: Other and unspecified hyperlipidemia On: :44 Request LIPID PANEL (90977)Indication: Other and unspecified hyperlipidemia On: :44 Request CBC WITH MANUAL DIFF (98051)Indication: Other vitamin B12 deficiency anemia On: :54 Request MICROALBUMIN: CREATININE RATIO (07220) AND (43189)Indication: Glucose intolerance (no malabsorption) On: :54 Request METABOLIC PANEL, COMPREHENSIVE (94643)Indication: HYPERTENSION, NOS On: :54 Request LIPID PANEL (60807)Indication: Other and unspecified hyperlipidemia On: :53 Request VITAMIN B-12 (CYANOCOBALAMIN) (68001)Indication: Other vitamin B12 deficiency anemia On: :53 Request IRON (79339)Indication: Iron (Fe) deficiency anemia On: :53 Request Vitamin D Hydroxy (43926)Indication: Osteopenia On: :49 Request Methylmalonic acid, serum 26788Uxponkavom: Other vitamin B12 deficiency anemia On: :03 Request VITAMIN B-12 (CYANOCOBALAMIN) (36218)Indication: Other vitamin B12 deficiency anemia On: :03 Request TSH (88205)Indication: Acquired hypothyroidism On: :03 Request HgA1C , Office (57939)Indication: Abnormal glucose tolerance test On: :06 Request TSH (28759)Indication: Acquired hypothyroidism On: :35 Request LIPID PANEL (23746)Indication: Other and unspecified hyperlipidemia On: :35 Request METABOLIC PANEL, COMPREHENSIVE (79439)Indication: SOB (shortness of breath) on exertion On: :34 Request CBC WITH MANUAL DIFF (33467)Indication: SOB (shortness of breath) on exertion On: :34 Request TSH (05649)Indication: Acquired hypothyroidism On: 0-Kou-465809:46 Request Comments: do in 6 weeks TSH (37685)Indication: Acquired hypothyroidism On: 83-Dml-532325:15 Request Comments: DO IN 6 WEEKS WITH MEDICATION CHANGE TSH (01608)Indication: Other malaise and fatigue On: 51-Ihj-30405:49 Request Iron Binding Capacity (TIBC) (14077)Indication: Iron (Fe) deficiency anemia On: :43 Request Ferritin (67534)Indication: Iron (Fe) deficiency anemia On: :43 Request Iron (68536)Indication: Iron (Fe) deficiency anemia On: :43 Request HEPATIC FUNCTION PANEL (52858)Indication: Mixed hyperlipidemia On: :42 Request LIPID PANEL (95852)Indication: Mixed hyperlipidemia On: :42 Request Comments: do in 3 months HEPATIC FUNCTION PANEL (51758)Indication: Mixed hyperlipidemia On: 6-Hgg-059700:11 Request LIPID PANEL (80688)Indication: Mixed hyperlipidemia On: 5-Tbc-530893:11 Request Comments: do in 3 mo TSH (92613)Indication: Acquired hypothyroidism On: :23 Request VITAMIN B-12 (CYANOCOBALAMIN) (66036)Indication: Anemia, unspecified On: :23 Request LDH (LD) (LACTATE DEHYDROGENASE) (21815)Indication: Anemia, unspecified On: :23 Request RETICULOCYTE COUNT MANUL (19832)Indication: Anemia, unspecified On: :23 Request IRON BINDING CAPACITY (TIBC) (54724)Indication: Anemia, unspecified On: :23 Request IRON ([id number])Indication: Anemia, unspecified On: :23 Request FOLIC ACID SERUM (72496)Indication: Anemia, unspecified On: :23 Request HAPTOGLOBIN (35219)Indication: Anemia, unspecified On: :23 Request FERRITIN (95618)Indication: Anemia, unspecified On: :23 Request CBC, PLATELETS & AUT DIFF ([id number])Indication: Anemia, unspecified On: 13-Aca-209597:23 Request HgA1C , Office (41642)Indication: Abnormal glucose tolerance test On: 78-Svl-460800:03 Request CBC with manual diff (76075)Indication: Anemia, unspecified On: 55-Gsd-604522:49 Request HgA1C , Office (56589)Indication: Abnormal glucose tolerance test On: 64-Owu-506120:30 Request Comments: controlled URINALYSIS W/O MICRO (33331)Indication: HYPERTENSION, NOS On: 17-Bau-642311:03 Request TSH ([id number])Indication: Acquired hypothyroidism On: 23-Mvk-372085:03 Request MICROALBUMIN URINE QUANT (20924)Indication: HYPERTENSION, NOS On: :03 Request METABOLIC PANEL, COMPREHENSIVE (93638)Indication: HYPERTENSION, NOS On: :03 Request LIPID PANEL (69097)Indication: HYPERTENSION, NOS On: :03 Request CBC WITH MANUAL DIFF ([id number])Indication: HYPERTENSION, NOS On: 89-Ejc-101230:03 Request Planned Encounters Medical; 2 Week FU - On: 10-Jul-2018 13:00 [facility] Melanie EKBEDE, Doris Navarro DO, Doris Jay DO Planned Procedures Radiology - Lumbar SpineBy: Melanie On: 24-Jun-2018 Intent Doris KEBEDE DO, Doris Jay DO Aerosol Treatment (90632)By: On: 14-Apr-2018 Intent Thelma Sofia Comments: Lungs clear after albuterol aerosol treatment Ultrasound - LiverBy: Melanie KEBEDE, On: 21-Nov-2017 Intent Doris Jay DO, DO, Kathleen B 12 Injection, 1000 mcg ([id number])By: On: 21-Nov-2017 Intent Doris Navarro DO, DO, Comments: Vitamin b12 1000mcg injection lot:[id number]:04/2019L DELT IMpt tolerated well CARYN DUMONT DO, Kathleen PHYSICAL THERAPY (29456)By: [place] On: 28-Oct-2017 Intent Thelma Radiology - Hip - LeftBy: [place], On: 28-Oct-2017 Intent Thelma Aerosol Treatment (52402)By: Melanie On: 07-Aug-2017 Intent DO, Doris Melanie DO, Doris Comments: more a/e less nois e Melanie DOTaliDoris Spirometry (98611)By: Melanie KEBEDE, On: 07-Aug-2017 Intent Doris Melanie DO, Doris Melanie Comments: really poor techniq DO, Doris Radiology - Chest- PA and LatBy: On: 07-Aug-2017 Intent Melanie DO, Doris Melanie DO, Doris Melanie DO, Doris IV Needle placement (13879)By: On: 02-Aug-2017 Intent Melanie DO, Doris Melanie DO, Doris Melanie DO, Doris INFUSION, NORMAL SALINE SOLUTION , On: 02-Aug-2017 Intent 1000 CC (Special Coverage Comments: lot:[id number]:02-26-2019rte:right anticubdose:1000ml given by:david Snow, MANAGER CIVIL Instructions Apply. See [facility]: 2048) ([id number])By: Melanie KEBEDE, Doris Melanie DO, Doris Melanie DO, Doris INFUSION, NORMAL SALINE SOLUTION , On: 01-Aug-2017 Intent 1000 CC (Special Coverage Comments: lot:[id number]:02-26-2019rte:IV left anticubdose:1000ml NS given by:david matthewsER, MANAGER CIVIL Instructions Apply. See MCM: 204) ([id number])By: Marcia Britton Aerosol Treatment (40176)By: Melanie On: 01-Aug-2017 Intent DO, Doris Melanie DO, Doris Comments: more a/e less junky sounding Melanie DOTaliDoris PNEUM VAC ADLT/IMUMNOSPR, SBC/INTRM On: 25-Apr-2017 Intent (61055)By: Doris Navarro DO Comments: 0.5cc given sq lt arm lot [id number] exp 09/05/18 Melanie DOTaliDoris Melanie DO Doris INTENSIVE BEHAVIORAL THERAPY TO On: 25-Apr-2017 Intent REDUCE CARDIOVASCULAR DISEASE RISK, INDIVIDUAL, UIXH-XU-OVDM, ANNUAL, 15 MINUTES (G0446)By: Emlanie DO, Doris Melanie DO, Doris Melanie DO, Doris OVKS-SD-WRAV BEHAVIORAL COUNSELING On: 25-Apr-2017 Intent FOR OBESITY, 15 MINUTES (G0447)By: Tali Navarro DOhleen Melanie DO, Doris Melanie DO, Doris B 12 Injection, 1000 mcg ([id number])By: On: 25-Apr-2017 Intent Melanie DO, Doris Melanie DO, Comments: 1 ml given lt arm lot [id number] exp 03/15 Doris Melanie DO, Doris ELECTROCARDIOGRAM, COMPLETE (ECG) On: 25-Apr-2017 Intent (69209)By: Doris Navarro DO Comments: nsr no acute chg Melanie DO, Doris Melanie DO, Doris B 12 Injection, 1000 mcg ([id number])By: On: 14-Mar-2017 Intent Melanie DO, Doris Melanie DO, Comments: lot [id number] 09/16left [id number] mcgas, MANAGER CIVIL Doris Melanie DO, Doris B 12 Injection, 1000 mcg ([id number])By: On: 31-Dec-2016 Intent Melanie DO, Doris Melanie DO, Comments: [id number], MANAGER CIVIL Doris Melanie DO, Doris B 12 Injection, 1000 mcg (J3420)By: On: 20-Sep-2016 Intent Melanie DO, Doris Melanie DO, Comments: lot:[id number]: 11/13Dose: 1,000 mcgSite: R dltdLocation; IMby:, MANAGER CIVIL Doris Melanie DO, Doris Solu- Medrol Injection, 125mg On: 20-Aug-2016 Intent ([id number])By: Doris Navarro DO Comments: lot: [id number]: 01/14site/route: LGM/IMamt:2mLVIS signed when applicableChelsea, RAT POISONER Melanie DO, Doris Melanie DO, Doris Aerosol Treatment ([id number])By: Melanie On: 20-Aug-2016 Intent DO, Doris Melanie DO, Doris Comments: albulterol 0.83%relistedned nad more a/e less noise Melanie DO, Doris B 12 Injection, 1000 mcg (J3420)By: On: 20-Aug-2016 Intent Melanie DO, Doris Melanie DO, Comments: lot: [id number]: ite/route: L del/IMamt: 1mLVIS signed when applicableChelsea, [facility] Doris Melanie DO, Doris Spirometry ([id number])By: Melanie DO, On: 16-Aug-2016 Intent Doris Melanie DO, Doris Melanie Comments: ok stable - DO, Doris Aerosol Treatment ([id number])By: Melanie On: 16-Aug-2016 Intent DO, Doris Melanie DO, Doris Comments: albulterol 0.83%more a.e stil some niose in RUL -- junky and easy to cough Melanie DO, Doris Solu- Medrol Injection, 125mg On: 16-Aug-2016 Intent ([id number])By: Melanie DO Doris Comments: lot [id number] mgright gm, IMas MANAGER CIVIL Melanie DO, Doris Melanie DO, Doris B 12 Injection, 1000 mcg (J3420)By: On: 20-Jul-2016 Intent Melanie DO, Doris Melanie DO, Comments: B12lot:[id number]:ite:rt deltroute:IMdose:1mlD.HAY Valentin Doris Melanie DO, Doris Solu- Medrol Injection, 125mg On: 20-Jul-2016 Intent ([id number])By: Melanie DOTaliDoris Comments: lot: [id number]: 01/14site/route: RGM/IMamt: 2mLVIS signed when applicableChelsea, [facility] Melanie DO, Doris Melanie DO, Doris Aerosol Treatment ([id number])By: Melanie On: 20-Jul-2016 Intent DO, Doris Melanie DO, Doris Comments: less wheeze good a/e- less irritability with breathing Melanie DO Doris Radiology - Chest- PA and LatBy: On: 20-Jul-2016 Intent Melanie DO, Doris Melanie DO, Doris Melanie DO, Doris Spirometry ([id number])By: Melanie DO, On: 20-Jul-2016 Intent Doris Melanie DO, Doris Melanie Comments: mild restriction =- poor curve and technique DO, Doris ELECTROCARDIOGRAM, COMPLETE (ECG) On: 20-Jul-2016 Intent ([id number])By: Melanie DOJdDoris Comments: sinus braden no acute chg Melanie DO, Doris Melanie DO, Doris B 12 Injection, 1000 mcg (J3420)By: On: 29-May-2016 Intent Melanie DO, Doris Melanie DO, Comments: Lot:[id number]:11/13Dose:1mlRoute:IMSite:r armGiven By:SAADIA signed Doris Melanie DO, Doris Flu Vaccine (Quadrivalent) [id number]: On: 29-May-2016 Intent Melanie DO, Doris Melanie DO, Comments: Lot:[id number]:01/25/17Dose:0.5mLRoute:IMSite:L DltdGiven By:SAADIA signed Doris Melanie DO, Doris B 12 Injection, 1000 mcg (J3420)By: On: 21-May-2016 Intent Melanie DO, Doris Melanie DO, Doris Melanie DO, Doris B 12 Injection, 1000 mcg (J3420)By: On: 18-May-2016 Intent Melanie DO, Doris Melanie DO, Comments: B12lot:[id number]:ite:rt deltroute:IMdose:1mlD.HAY Valentin Doris Melanie DO, Doris B 12 Injection, 1000 mcg (J3420)By: On: 11-May-2016 Intent Melanie DO, Doris Melanie DO, Comments: lot [id number] mcgleft dltdas, MANAGER CIVIL Doris Melanie DO, Doris B 12 Injection, [...] 09-Apr-2016 Intent REDUCE CARDIOVASCULAR DISEASE RISK, INDIVIDUAL, [id number]-ZH-YXYA, ANNUAL, 15 MINUTES (G0446)By: Melanie DO, Doris Melanie DO, Doris Melanie DO, Drois [id number]-XZ-[id number] BEHAVIORAL COUNSELING On: 09-Apr-2016 Intent FOR OBESITY, 15 MINUTES (G0447)By: Melanie DO, Doris Melanie DO, Doris Melanie DO, Doris MAMMOGRAM, SCREENING, BOTH BREAST On: 09-Apr-2016 Intent ([id number])By: Melanie DO, Doris Melanie DO, Doris Melanie DO, Doris DEXA SCAN AXIAL SKELETON ([id number])By: On: 09-Apr-2016 Intent Melanie DO, Doris Melanie [...] Comments: Lot:[id number]:04/14Dose:1mlRoute:IMSite:l armGiven By:SAADIA signed Aerosol Treatment ([id number])By: Alexy On: 03-Aug-2015 Intent DO, Maggie A B 12 Injection, 1000 mcg (J3420)By: On: 17-May-2015 Intent Fast DO, Maggie A Comments: Lot:[id number]:11/12Dose:1mlRoute:IMSite:l armGiven By:SAADIA signed Flu Vaccine (Quadrivalent) [id number]: On: 17-May-2015 Intent Fast DO, Maggie A Comments: lot [id number]: 01/26/2016site/route L sol, IMamt 0.5mlVIS and ABN signed when applicableChelsea, CMAFM4 ADMINISTRATION OF INFLUENZA VIRUS On: 17-May-2015 Intent VACCINE (G0008)By: Alexy KEBEDE, Maggie A B 12 Injection, 1000 mcg (J3420)By: On: 15-Feb-2015 Intent Kanika Georges Comments: Lot:[id number]:11.16Route:IMSite:R deltoidDose: 1 mLgiven by: Kanika Georges CMA DANIEL (Ankle Brachial Index) On: 08-Feb-2015 Intent ([id number])By: Alexy DO Maggie A Radiology - Lumbar SpineBy: Alexy DO, On: 08-Feb-2015 Intent Maggie A Ultrasound - ThyroidBy: Alexy KEBEDE, On: 09-Nov-2014 Intent Maggie A B 12 Injection, 1000 mcg (J3420)By: On: 09-Nov-2014 Intent Alexy DO Maggie A Comments: lot [id number] mcgleft dltdIMaCARYN milligan Radiology - Chest- PA and LatBy: On: 13-Sep-2014 Intent Alexy DO Maggie A Comments: call stat Pulse Oximetry ([id number])By: Alexy KEBEDE, On: 13-Sep-2014 Intent Maggie A Comments: 97% Inhaler Demonstration (05589)By: On: 07-Sep-2014 Intent Kimberley Loyd CNP Radiology - Chest- PA and LatBy: On: 14-Jul-2014 Intent Alexy DOMaggie A Comments: call rsults Spirometry ([id number])By: Alexy KEBEDE, On: 14-Jul-2014 Intent Maggie A Comments: good effort and curve mild rest /obst Prevnar 13 (86695)By: Alexy KEBEDE, On: 30-Jun-2014 Intent Maggie A Comments: lot [id number] 09/2015location L armroute imgiven by - msmithVIS and/or ABN signed MAMMOGRAM, SCREENING, BOTH BREAST On: 14-Apr-2014 Intent ([id number])By: Maggie Tracey DO A B 12 Injection, 1000 mcg (J3420)By: On: 14-Apr-2014 Intent Alexy DO Maggie A Comments: Lot #[id number] date:mount given:1mlRoute: IMSite given: left deltoidGiven by: HAY Zavala Cartoid DopplerBy: Alexy KEBEDE Maggie A On: 14-Apr-2014 Intent Eprescribed prescriptions (G8553)By: On: 07-Oct-2013 Intent Maggie Tracey DO A DXA, BONE DENSITY, AXIAL SKELETON On: 20-Jul-2013 Intent ([id number])By: Maggie Tracey DO Comments: aug Pelvic and Breast, Medicare On: 20-Jul-2013 Intent (G0101)By: Maggie Tracey DO Cartoid DopplerBy: Camelia Tracey DOa A On: 07-Jul-2013 Intent Eprescribed prescriptions (G8553)By: On: 07-Jul-2013 Intent Raiza Ortiz FLU VAC, SPLIT, >3 YEARS, INTRAMUSC On: 04-May-2013 Intent ([id number])By: Maritza Cantor Comments: lot [id number] 2014site/route L sol, IMamt 0.5mlVIS and ABN signed when applicableChelsea, RAT POISONER ADMINISTRATION OF INFLUENZA VIRUS On: 04-May-2013 Intent VACCINE (G0008)By: Maritza Cantor Radiology - Hip - LeftBy: Alexy KEBEDE, On: 07-Apr-2013 Intent Maggie Armstrong Eprescribed prescriptions (G8553)By: On: 07-Apr-2013 Intent Raiza Ortiz Eprescribed prescriptions (G8553)By: On: 05-Jan-2013 Intent Raiza Ortiz Spirometry (17834)By: Alexy KEBEDE, On: 01-Dec-2012 Intent Maggie Armstrong Comments: good effort and curve normal Radiology - Chest- PA and LatBy: On: 01-Dec-2012 Intent Maggie Tracey DO Comments: stat call wet read Eprescribed prescriptions (G8553)By: On: 01-Dec-2012 Intent Raiza Ortiz Pulse Oximetry ([id number])By: Angel, On: 01-Dec-2012 Intent Raiza Comments: 98% Eprescribed prescriptions (G8553)By: On: 27-Nov-2012 Intent Melanie DO, Doris Melanie DO, Doris Melanie DO, Doris MAMMOGRAM, SCREENING, BOTH BREASTS On: 29-Sep-2012 Intent ([id number])By: Maggie Tracey DO EKG ([id number])By: Raiza Ortiz On: 29-Sep-2012 Intent Comments: ekg- 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 axis and no acute st t wave changes Eprescribed prescriptions (G8553)By: On: 29-Sep-2012 Intent aRiza Ortiz Eprescribed prescriptions (G8553)By: On: 03-Sep-2012 Intent Raiza Ortiz Eprescribed prescriptions (G8553)By: On: 30-Jul-2012 Intent Raiza Ortiz B 12 Injection, 1000 mcg (J3420)By: On: 23-Jun-2012 Intent Alexy DO Maggie A Comments: Lot:[id number]:Dose:1mlRoute:IMSite:L armGiven By:SAADIA signed Eprescribed prescriptions (G8553)By: On: 23-Jun-2012 Intent Raiza Ortiz B 12 Injection, 1000 mcg (J3420)By: On: 25-Mar-2012 Intent Maricruz Rivera LPN Comments: Lot #[id number]-06/10Site-right deltoidDose-1 mlgiven by: Dani Rivera LPN Eprescribed prescriptions (G8553)By: On: 25-Mar-2012 Intent Maggie Tracey DO A FLU VAC, SPLIT, >3 YEARS, INTRAMUSC On: 25-Mar-2012 Intent ([id number])By: Patsy Leslie LPN Comments: Lot/Exp: [id number], 12/2011Given in L Dltd, IMPrefilled SyringeBy CARYN Garner ADMINISTRATION OF INFLUENZA VIRUS On: 25-Mar-2012 Intent VACCINE (G0008)By: Patsy Leslie LPN Echo CompleteBy: Alexy KEBEDE Maggie A On: 07-Dec-2011 Intent B 12 Injection, 1000 mcg (J3420)By: On: 07-Dec-2011 [address] - OtherBy: Alexy DO Maggie A On: 03-Oct-2011 Intent Comments: get cta of carotid arteries TDAP VACCINE >7 IM ([id number])By: On: 03-Oct-2011 Intent Raiza Ortiz B 12 Injection, 1000 mcg (J3420)By: On: 07-Sep-2011 Intent Raiza Ortiz Comments: Lot #[id number]-07/09Site-left deltoidDose-1 mlgiven by: Dani Rivera LPN Cartoid DopplerBy: Alexy DO Maggie A On: 07-Sep-2011 Intent Comments: in september DXA, BONE DENSITY, AXIAL SKELETON On: 07-Sep-2011 Intent ([id number])By: Alexy KEBEDE Maggie A MAMMOGRAM, SCREENING, BOTH BREASTS On: 07-Sep-2011 Intent ([id number])By: Alexy KEBEDE Maggie A Aerosol Treatment ([id number])By: Evert On: 08-Aug-2011 Intent Kimberley LOVE EKG (06861)By: Raiza Ortiz On: 06-Jun-2011 Intent Comments: ekg showed normal sinus rhythym, left axis, no acute st/t wave changes DXA, BONE DENSITY, AXIAL SKELETON On: 06-Jun-2011 Intent ([id number])By: Maggie Tracey DO FLU VAC, SPLIT, >3 YEARS, INTRAMUSC On: 11-May-2011 Intent (31295)By: Maricruz Rivera LPN Comments: Lot #[id number]//Site-left deltoidgiven by: Dani Rivera LPN B 12 [...] 1234 exp 3-13 Doppler Ultrasound OtherBy: Alexy KEEBDE, On: 24-Jan-2011 Intent Maggie A Comments: stat [...] PNEUM VAC ADLT/IMUMNOSPR, SBC/INTRM On: 03-Jul-2010 Intent ([id number])By: Maggie Tracey DO Comments: Lot #[id number]-3/10/07Site-left deltoidDose- 0.5mlgiven by:GAL ADMINISTRATION OF PNEUMOCOCCAL On: 03-Jul-2010 Intent VACCINE (G0009)By: Maggie Tracey DO MAMMOGRAM, SCREENING, BOTH BREASTS On: 03-Jul-2010 Intent ([id number])By: Maggie Tracey DO B 12 Injection, 1000 mcg (J3420)By: On: 20-Jun-2010 Intent Maggie Tracey DO Comments: Lot #[id number]-12/07Site-left deltoidDose-1 mlgiven by:CDH B 12 Injection, 1000 mcg (J3420)By: On: 10-May-2010 Intent Apoorva Calle Comments: Lot:[id number]:12/07Dose:1000mcg/1mlRoute:IMSite:right deltoid Given by: HAY Birch FLU VAC, SPLIT, >3 YEARS, INTRAMUSC On: 10-May-2010 Intent ([id number])By: Apoorva Calle Comments: Lot:[id number]:10/2010Dose:0.5mlRoute:IMSite:Left Deltoid Given by: HAY Birch ADMINISTRATION OF INFLUENZA VIRUS On: 10-May-2010 Intent VACCINE (G0008)By: Apoorva Calle Doppler Ultrasound OtherBy: Alexy KEBEDE, On: 12-Apr-2010 Intent Maggie A Comments: both legs stat- left leg swelling- call wet read Spirometry (30660)By: Alexy KEBEDE, On: 12-Apr-2010 Intent Maggie A Comments: good effort and curve normal B 12 Injection, 1000 mcg (J3420)By: On: 05-Apr-2010 Intent Maggie Tracey DO Ultrasound - GallbladderBy: Alexy KEBEDE, On: 01-Feb-2010 Intent Maggie A IV Needle placement (22287)By: On: 10-Jan-2010 Intent Ana Guzman Comments: IV 22 gauge inserted in right antecubital on first attempt and 0.9 NSS running without difficulty-AW INFUSION, NORMAL SALINE SOLUTION , On: 10-Jan-2010 Intent 1000 CC (Special Coverage Instructions Apply. See MCM: 9) (J7030)By: Kimberley Loyd CNP THER/PROPH/DIAG INJ, SC/IM On: 10-Jan-2010 Intent ([id number])By: Kimberley Loyd CNP Radiology - Knee - Right - Weight On: 03-Jan-2010 Intent BearingBy: Maggie Tracey DO EKG (35482)By: Raiza Ortiz On: 03-Jan-2010 Intent Comments: ekg showed normal sinus rhythym, left axis, no acute st/t wave changes Aerosol Treatment ([id number])By: Evert On: 19-Oct-2009 Intent Kimberley LOVE Cartoid DopplerBy: Maggie Tracey DO On: 14-Jun-[address] - Brain/HeadBy: Maggie Tracey DO On: 06-Jun-2009 Intent MAMMOGRAM, SCREENING, BOTH BREASTS On: 06-Jun-2009 Intent ([id number])By: Maggie Tracey DO DXA, BONE DENSITY, AXIAL SKELETON On: 06-Jun-2009 Intent ([id number])By: Maggie Tracey DO FLU VAC, SPLIT, >3 YEARS, INTRAMUSC On: 12-May-2009 Intent (88824)By: Maricruz Rivera LPN Comments: Lot #[id number]-left deltoidgiven by:CDH ADMINISTRATION OF INFLUENZA VIRUS On: 12-May-2009 Intent VACCINE (G0008)By: Maricruz Rivera LPN Radiology - Hand - RightBy: Alexy KEBEDE, On: 26-Jan-2009 Intent Maggie A Radiology - Wrist - RightBy: Alexy On: 26-Jan-2009 Intent Maggie KEBEDE Comments: call wet read Pulse Oximetry ([id number])By: Alexy KEBEDE, On: 27-Dec-2008 Intent Maggie A Comments: 98 Inhaler Demo (57752)By: Alexy KEBEDE, On: 27-Dec-2008 Intent Maggie A Spirometry (09120)By: Alexy KEBEDE, On: 27-Dec-2008 Intent Maggie Nathaniel Comments: good effort and curve has small airways diminished Radiology - Chest- PA and LatBy: On: 27-Dec-2008 Intent Maggie Tracey DO Echo CompleteBy: Maggie Tracey DO A On: 08-Nov-2008 Intent Comments: elevated bp - increase patricia EKG (57523)By: Maggie Tracey DO A On: 08-Nov-2008 Intent Comments: ekg showed normal sinus rhythym, leftl axis, no acute st/t wave changes rsr unchanged Bio Z (88526)By: Maggie Tracey DO On: 08-Nov-2008 Intent Inhaler Demo (65656)By: Melanie KEBEDE, On: 02-Sep-2008 Intent Doris Jay DO Melanie DO, Doris Aerosol Treatment (11725)By: Melanie On: 02-Sep-2008 Intent Doris KEBEDE MelanieDoris driscoll DO Comments: less echoey -- better less cough Doris Navarro DO EKG (08722)By: Doris Navarro DO On: 16-Dec-2007 Intent Doris Navarro DO Melanie DO, Comments: NSR NO ACUTE CHANGES Doris B 12 Injection, 1000 mcg (J3420)By: On: 13-Nov-2007 Intent Thelma Khan LPN Comments: 1000mcg/ml 1 ml given im lt dltd lot [id number] exp 07-06. Pt tolerated well. B 12 Injection, 1000 mcg (J3420)By: On: 30-Jul-2007 Intent Doris Navarro DO Melanie DO, Doris Jay DO EXCISION BGN LSN TRNK/ARM/LEG On: 09-Jul-2007 Intent 0.6-1.0 CM (35567)By: Kimberley Loyd CNP BIOPSY OF SKIN LESION, SINGLE On: 09-Jul-2007 Intent (03522)By: Kimberley Loyd CNP SHAVE SKIN LESION, TRUNK/ARM/LEG On: 02-Jul-2007 Intent (15014)By: Kimberley Loyd CNP BIOPSY OF SKIN LESION, SINGLE On: 02-Jul-2007 Intent ([id number])By: Kimberley Loyd CNP B 12 Injection, 1000 mcg (J3420)By: On: 02-Jul-2007 Intent Lashonda Lee LPN FLU VAC, SPLIT, >3 YEARS, INTRAMUSC On: 04-Jun-2007 Intent (23419)By: Jing Cabello RN Comments: Lot #: [id number] date: 01/03Amount given: 0.5 MLRoute: IMSite given: Left deltoidGiven by: Nathaniel Beal LPN IMMUNIZ ADMNIN, 1 VAC, SNGL/COMBO On: 04-Jun-2007 Intent (54230)By: Jing Cabello RN B 12 Injection, 1000 [...] Injection, 1000 mcg (J3420)By: On: 17-Mar-2007 Intent nAa Guzman Comments: given in left deltoid 1cc [...] DO, Doris Melanie DO, Doris IV Infusion ([id number])By: Melanie DO, On: 18-Oct-2006 Intent Doris Melanie DO, Doris Melanie DO, Doris EKG (84649)By: Melanie DO, Doris On: 10-Oct-2006 Intent Melanie DO, Doris Melanie DO, Comments: NSR T WAVE INVERSIONS V1-V3 Doris Planned Medications INFUSION, NORMAL SALINE SOLUTION , 1000 CC Ordered: 02-Aug-2017 Pending Melanie DO, Doris Melanie DO, Doris Melanie DO, Doris INFUSION, NORMAL SALINE SOLUTION , 1000 CC Ordered: 01-Aug-2017 Pending Marcia Britton INJECTION, METHYLPREDNISOLONE SODIUM SUCCINATE, UP TO 125 MG Ordered: 20-Aug-2016 Pending Mleanie DO, Doris Melanie DO, Doris Melanie DO, [...] The patient does have durable power of state's attorney and living will. Other providers contributing [...] 13 steps at home. I was at [facility] for 3 days in ICU I broke [...] The patient does have durable power of state's attorney and living will. The patient has [...] and she off pravastatin and went to [place] and now on 5 mg of crestor- and tolerated she got leg pain and weakness on pravachol- - she got good [facility] [employer] on stroke and vascular in [place]- --bp is good and cough gone and [...] The patient does have durable power of state's attorney and living will. The damián ent [...] since going to the urgent care at [facility]- on atb yet but will finish [...] bp is great- went to [facility] for vascular check and said ok- [...] stroke sx mood controlled has followup in [facility] for vascular issues soon- no chest pain [...] The patient does have durable power of state's attorney and living will. The patient has [...] not home- no gerd - went to [place] for artery checks and doing ok there- [...] laboratory test results: she went back to [facility] Saw Dr Shruthi Quinones- ??head of [...] ER visit: note: (stroke she was at [facility] x 5days released on saturday05/22/12 to 05/27/12). The patient feels well with minor complaints, has decreased energy End: 29-May-2012 14:12 level and is sleeping well. Patient has been compliant with instructions. Current medication use: compliant with dosing regimen. Patient sleeps 7 hours per night. Nutrition: balanced diet and supplement al vitamins. Note for Follow up hospital: [facility] Diagnosis: CVA (434.91), Benign essential hypertension (401.1), Diabetes type II,controlled no comp (250.00), Hypothyroidism (244.9), Carotid stenosis (433.10) [facility] Office Visit On: 22-May-2012 10:33 Encounter Reason: Follow up hospital - Reason for ER visit: note: (TIA. ??Patient was seen by [facility] ER x 3 times last week and then sent to [facility] for psych eval.). 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 The pa End: 15-Mar-2007 17:02 tient's appetite is normal. Nutrition: normal/adequate. Normal bowel and bladder habits. Current emotional problems include depression. Encounter Diagnosis: Abnormal Glucose Tolerance Test (790.22), Hypothyroidism (244.9), HYPERTENSION, NOS (401.9) , Heart murmur (785.2), Abnormal EKG(794.31) [facility] Payers MedicareConnie Laidley-Curren; a guarantor
--- OUTSIDE RECORDS SUMMARY | 2018-08-20 04:45 | XMS RPT_ITS | Continuity of Care Document ---
:1940 Author Organization [facility] Address [address] [place] [address] Phone Care Team Providers Name Role Phone Doris Navarro DO Unavailable Camacho Serrano Unavailable Flakito Morales Unavailable [facility], 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 and wt loss / metformin and [...] KathleenFearon DO, Kathleen Start : 24-Jun-2018 Active Comments:nudbxV27.90 TraZODone HCl 100 MG Oral Tablet 1-1/2 [...] days Quantity: 360 {Capsule} Refills: 3 Ordered:17-Mar-2008 hTelma Khan LPN Start : 08-Sep-2007 End : [...] Start : 26-Sep-2016 End : 12-Dec-2017 Inactive [place]ou 5-325 MG Oral Tablet 1 q 4hrs [...] Quantity: 30 {Capsule} Refills: 4 Ordered:24-Jun-2018 Arnold Navaror DO, DO, KathleenFearon DO, Kathleen Start : [...] : 07-Sep-2014 End : 13-Sep-2014 Discontinued ERGOCALCIFEROL, 85198MZZJ (Oral Capsule) 1 (one) Capsule q week [...] End : 23-Jun-2012 Discontinued VITAMIN D (ERGOCALCIFEROL), 38291XHBD (Oral Capsule) 1 Capsule q week for 0 days Quantity: 12 {Capsule} Refills: 2 Ordered:19-Aug-2015 Raiza Ortiz Start : 07-Apr-2013 End : 19-Aug-2015 Discontinued VITAMIN D, 98941KPLI (Oral Capsule) 1 (one) Capsule q week [...] Department Summary Result: Comments: See Note; NOTES: [facility] Medical Records Department [address] [place] [address] Emergency Department Summary 05/14/18 0908 MR#: [id number] Acct: [id number] Name: MARICRUZ GRIGSBY Rep #: [id number] : 1940 78 From: Zee Denise MD [...] family doctors she is re ferred to [facility] for the shoulder injury and she will return for change in symptoms and she is comfortable with this plan Treatment Plan: [] Disposition: [] Stable home Impression: [] Fall left rib fracture, left shoulder injury This note was generated with Lottay dictation software. It may contain incorrect words, spelling, and punctuation that were not noted in review of the [facility] rt prior to signing ED Disposition - Plan for ED Patient: Chief Complaint: Fall Referrals: Doris Navarro, [Primary Care Provider] - What to do if you have Problems For any increased pain, sh ortness of breath, bleeding, nausea or vomiting, chest pain, or any unexpected problems, contact your Primary Care Provider. Call [facility] ([phone]) or report to the closest Emergency Room. Call 911 if necessary. 05/14/18 1530 <Electronically signed by Zee Denise MD> Date Zee Cagle (If Indicated): Date CC: Doris Navarro DO 14-May-2018 Discharge Instruction Result: Comments: See Note; NOTES: [facility] Medical Records Department [address] [place] [address] Discharge Instruction 05/14/18 1133 MR#: [id number] Acct: [id number] Name: MARICRUZ GRIGSBY Stuart Rep #: [id number] : 1940 78 From: Zee Denise MD PCP: Doris Navarro DO Status: REG ER ED Disposition - Plan for ED Patient: Chief Complaint: Fall Instructions: ED M echanical Fall, ED Fx Rib, ED Sprain Shoulder, ED Sling Prescriptions: Hydrocodone Bitart/Apap 5-325 [Manitou 5MG-325MG] 1 tab PO Q6H PRN PRN 3 Days #10 tab PRN Reason: Pain Referrals: Doris Navarro DO [Primary Care Provider] - What to do if you have Problems For any increased pain, shortness of breath, bleeding, nausea or vomiting, chest pain, or any unexpected problems, contact your Primary Car e Provider. Call [facility] ([phone]) or report to the closest Emergency Room. Call 911 if necessary. 05/14/18 1134 <Electronically signed by Zee Denise MD> Date ___ Zee Denise MD Cosigner Signature (If Indicated): Date CC: Doris Navarro DO 14-May-2018 Chest PA and Lateral Result: Comments: See Note; NOTES: [facility] Imaging Services [address] [place] [address] Chest PA and Lateral MR#: [id number] Acct: [id number] Name: CLIFFORD FABYMARICRUZ THORNE Rep #: [id number] : 1940 F 78 From: Teo Wayne MD PCP: Doris Navarro DO Status: REG ER Study: Chest PA and Lateral Date of Exam: 05/14/18 Exam# [id number] Ordering Dr: Zee Denise MD STUDY: X-RAY [...] Teo Wayne MD at 10:11 EDT Tel [phone], [facility] support , CC: MD Sonam Denise; Doris Navarro DO Director Of People: Signed 14-May-2018 Elbow min 3 Views Result: Comments: See Note; NOTES: [facility] Imaging Services [address] [place] [address] Elbow min 3 Views MR#: [id number] Acct: [id number] Name: CLIFFORD CRUZMARICRUZ Stuart Rep #: : 1940 F 78 From: Teo Wayne MD PCP: Doris Navarro DO Status: [facility] ER Study: Elbow min 3 Views Date of Exam: 05/14/18 Exam# [id number] Ordering Dr: Zee Denise MD STUD Y: [...] Teo Wayne MD at 10:12 EDT Tel [phone], Service support , CC: MD Sonam Denise; Doris Navarro DO Director Of People: Signed 14-May-2018 Shoulder min 2 Views Result: Comments: See Note; NOTES: [facility] Imaging Services [address] [place] [address] Shoulder min 2 Views MR#: [id number] Acct: [id number] Name: MARICRUZ GRIGSBY Rep #: [id number] : 1940 F 78 From: Teo Wayne MD PCP: Doris Navarro DO Status: [facility] Study: Shoulder min 2 Views Date of Exam: 05/14/18 Exam# [id number] Ordering Dr: Zee Denise MD STUDY: X-RAY [...] Wayne MD at 11:02 EDT Tel [phone], Service support , CC: MD Sonam Denise; Doris Navarro DO Director Of People: Signed 06-Feb-2018 History and Physical Exam Result: Comments: See Note; NOTES: [facility] Medical Records Department [address] [place] [address] History and Physical 02/06/182050 MR#: [id number] Acct: [id number] Name: MARICRUZ GRIGSBY Rep #: [id number] : 1940 77 From: María Barnes MD [...] cholecystectomy Psychiatric History: No pertinent psych hx FRAUD MANAGER History: No pertinent FRAUD MANAGER history Lives: Spouse/ Significant Other Smoking [...] Subcu heparin. This note was generated with Good People software. It may contain incorrect words, spelling, and punctuation that were not noted in checking the note before signing. Code Visit OBSV E AND M: 80396 Initial observation care L3 2108 <Electronically signed by María Barnes MD> Date María Barnes MD Cosigner Signature: Date (if applicable) CC: María Barnes; Doris Navarro DO Signed 06-Feb-2018 Brain/Head without Contrast Result: Comments: See Note; NOTES: [facility] Imaging Services [address] [place] [address] Brain/Head without Contrast MR#: [id number] Acct: [id number] Name: MARICRUZ GRIGSBY Rep #: [id number] : 1940 F 77 From: Renata Lee MD PCP: Doris Navarro DO Status: [facility] Study: Brain/Head without Contrast Date of Exam: 02/06/18 Exam# [id number] Ordering Dr: Cameron Marte MD STUDY: CT [...] , CC: Doris Navarro DO; Jered Marte Director Of People: Signed 06-Feb-2018 Chest 1 View Result: Comments: See Note; NOTES: [facility] Imaging Services [address] [place] [address] Chest 1 View MR#: [id number] Acct: [id number] Name: MARICRUZ GRIGSBY Rep #: [id number] : 1940 F 77 From: Renata Lee MD PCP: Doris Navarro DO Status: [facility] ER Study: Chest 1 View Date of Exam: 02/06/18 Exam# [id number] Ordering Dr: Jered Marte MD STUDY: X-RAY [...] , CC: Doris Navarro DO; Jered Marte Director Of People: Signed 25-Nov-2017 Liver Result: Comments: See Note; NOTES: [facility] Imaging Services [address] [place] [address] Liver MR#: [id number] Acct: [id number] Name: MARICRUZ GRIGSBY Rep #: [id number] : 1940 F 77 From: Mack Hand MD PCP: Doris Navarro DO Status: REG CLI Study: Liver Date of Exam: 11/25/17 Exam# [id number] Ordering Dr: Doris Navarro DO STUDY: ABDOMINAL [...] MD at 12:34 EDT , Service support , CC: Doris Navarro DO Director Of People: Signed 29-Oct-2017 Hip 2-3 Views with Pelvis Result: Comments: See Note; NOTES: [facility] Imaging Services [address] [place] [address] Hip 2-3 Views with Pelvis MR#: [id number] Acct: [id number] Name: MARICRUZ GRIGSBY ep #: [id number] : 1940 F 77 From: Benji Finch PCP: Doris Navarro DO Status: REG CLI Study: Hip 2-3 Views with Pelvis Date of Exam: 10/29/17 Exam# [id number] Ordering Dr: Thelma Sofia STUDY: X-RAY - [...] , CC: QUINN Sofia; Doris Navarro DO Director Of People: Signed 27-Aug-2017 12 Lead Electrocardiogram Result: Comments: See Note; NOTES: [facility] Cardiovascular Services [address] [place] [address] 12 Lead EKG 08/24/17 1719 MR#: [id number] Acct: [id number] Name: CLIFFORD CRUZPORTIA CABRAL Stuart Rep #: [id number] : 1940 77 From: Maurilio Meraz MD [...] C onfirmed by SOLEDAD STREETER, MAURILIO ([id number]), medical transcription editor STACY CARTER (56) on 08/27/2017 10:37:34 AM Referred By: EITAN Confirmed By:MAURILIO MERAZ MD 08/27/17 1037 Date Maurilio Meraz MD CC: Doris Navarro DO Signed 25-Aug-2017 Emergency Department Summary Result: Comments: See Note; NOTES: [facility] Medical Records Department [address] [place] [address] Emergency Department Summary 08/24/17 1709 MR#: [id number] Acct: [id number] Name: CLIFFORD CRUZMARICRUZ Stuart Rep #: [id number] : 1940 77 From: Zee Denise MD [...] at home. She has no history of [place] PE or DVT she does have history [...] be altered This note was generated with Igea dictation software. It may contain incorrect words, [...] your Primary Care Provider. Call [facility] ([phone]) or report to the closest Emergency Room. Call 911 if necessary. 08/25/17 0001 <Electronically sig radha by Zee Denise MD> Date Zee Denise MD Cosigner Signature (If Indicated): Date CC: Doris Navarro DO 24-Aug-2017 Discharge Instruction Result: Comments: See Note; NOTES: [facility] Medical Records Department [address] [place] [address] Discharge Instruction 08/24/171819 MR#: [id number] Acct: [id number] Name: MARICRUZ GRIGSBY Rep #: [id number] : 1940 77 From: Zee Denise MD [...] your Primary Care Provider. Call [facility] ([phone]) or report to the closest [facility] Room. Call 911 if necessary. 08/24/171820 <Electronically signed by Zee Denise MD> Date Zee Denise MD Cosign er Signature (If Indicated): Date CC: Doris Navarro DO 24-Aug-2017 Chest PA and Lateral Result: Comments: See Note; NOTES: [facility] Imaging Services [address] [place] [address] Chest PA and Lateral MR#: [id number] Acct: [id number] Name: MARICRUZ GRIGSBY Rep #: [id number] : 1940 F 77 From: Stacy Tapia MD PCP: Doris Navarro DO Status: REG ER Study: Chest PA and Lateral Date of Exam: 08/24/17 Exam# [id number] Ordering Dr: Zee Denise MD XR Chest [...] CC: MD Sonam Denise; Doris Navarro DO Director Of People: Signed 07-Aug-2017 Chest PA and Lateral Result: Comments: See Note; NOTES: [facility] Imaging Services [address] [place] [address] Chest PA and Lateral MR#: [id number] Acct: [id number] Name: MARICRUZ GRIGSBY Rep #: [id number] : 1940 F 77 From: Teo Wayne MD PCP: Doris Navarro DO Status: REG CLI Study: Chest PA and Lateral Date of Exam: 08/07/17 Exam# [id number] Ordering Dr: Doris Navarro DO STUDY: X-RAY [...] Logan i, MD at 13:49 EST Tel [phone], Service support , CC: Doris Navarro DO Director Of People: Signed 20-Nov-2016 Operative Report Result: Comments: See Note; NOTES: [facility] Medical Records Department [address] [place] [address] Operative Report 11/14/16 0736 MR#: [id number] Acct: [id number] Name: MARICRUZ BREAUX Rep #: [id number] : 1940 76 From: Liza Duron DO PCP: Doris Navarro DO Status: [facility] Y Location: [facility] Report of Operation Date of Procedure: 11/14/16 [...] Dragon disclaimer This note was generated with Lottay dictation software. It may contain incorrect words, spellin g, and punctuation that were not noted in checking the note before signing. 11/20/16 1231 <Electronically signed by Liza Duron DO> Date Liza Oliverio KEBEDE CC: Liza Duron DO; Doris Navarro Signed 16-Nov-2016 Oncology Progress Note Result: Comments: See Note; NOTES: [facility] Medical Records Department [address] [place] [address] Oncology Progress Note MR#: [id number] Acct: [id number] Name: PORTIA GRIGSBY Rep #: [id number] : 1940 76 From: Sal Urrutia MD [...] level. Sal Urrutia MD T: NTS JOB: [id number] 11/16/16 0850 <Electronically signed by Sal Urrutia MD> Date Sal Urrutia MD Cosigner Signature (If Indicated): Date CC: Date Dictated: 11/08/161304 Date Transcribed: 11/08/161304 Director Of People: Signed 14-Nov-2016 Discharge Instruction Result: Comments: See Note; NOTES: [facility] Medical Records Department [address] [place] [address] Instructions for Home/Discharge Instructions 11/14/16 0735 MR#: [id number] Acct: [id number] Name: MARICRUZ GRIGSBY Rep #: [id number] : 1940 76 From: Liza Duron DO [...] mg PO DAILY 11/09/16 Hydrocodone Bitart/Apap 5-325 [Manitou 5MG- 325MG] 1 - 2 tablet PO Q6H PRN PRN #20 tablet 11/14/16 The following prescriptions were given: Hydrocodone Bitart/Apap 5- 325 [Manitou 5MG-325MG] 1 - 2 tablet PO Q6H PRN PRN #20 tablet PRN Reason: Pain Primary Care Physician: Doris Navarro DO [Primary Care Provider] - Please Follow Up With: Liza Duron - [phone] 11/14/16 5336 <Electronically signed by Liza Duron DO> Date Liza Duron DO CC: Doris Navarro DO 20-Jul-2016 Chest PA and Lateral Result: Comments: See Note; NOTES: [facility] Imaging Services [address] [place] [address] Verdana 4d Chest PA and Lateral MR#: [id number] Acct: [id number] Name: JOSE AHOMERO JAQUAN CRUZ Rep #: [id number] : 1940 F 76 From: Mack Hand MD PCP: Doris Navarro DO Status: REG CLI Study: Chest PA and Lateral Date of Exam: 07/20/16 Exam# [id number] Ordering Dr: Doris Navarro DO STUDY: X-RAY [...] at 12:24 EST Tel , Service support [phone], CC: Doris Navarro DO Director Of People: Signed 26-Jan-2016 Echocardiogram Complete Result: Comments: See Note; NOTES: [facility] Cardiovascular Services [address] [place] [address] Echo Complete 01/26/16 1008 MR#: [id number] Acct: [id number] Name: MARICRUZ PARMAR Rep #: [id number] : 1940 75 From: Mack Dickerson MD Attending Dr: Maggie Tracey DO Status: REG CLI Ordering Dr: Maggie Tracey DO Date: 01/26/16 Location: [facility] Sex: F C Admsouleymane ed: Reason For [...] Date Dictated: 01/26/16 1008 Date Transcribed: 01/26/161611 Director Of People: Signed 05-Dec-2015 Chest 1 View (Portable) Result: Comments: See Note; NOTES: [facility] Imaging Services [address] [place] [address] Verdana 4d Chest 1 View (Portable) MR#: [id number] Acct: [id number] Name: MARICRUZ PEÑALOZA Rep #: [id number] : 1940 F 75 From: Yari Garcia MD PCP: Magige Tracey DO Status: PRE ER Study: Chest 1 View (Portable) Date of Exam: 12/05/15 Exam# [id number] Ordering Dr: Johnnie Baez MD STUDY: X-RAY [...] at 16:44 EDT Tel , Service support [phone], RAD/Chest 1 V iew (Portable) IMPRESSION: Underexpansion of the lungs. Mild to moderate cardiomegaly. Electronically Signed: Yari Garcia MD at 16:44 EDT Tel , Service support , CC: Maggie Tracey DO; Johnnie Baez MD Director Of People: Signed 05-Dec-2015 Spirometry (60451) Comments: good effort and curvenormal Result: 05-Dec-2015 EKG (99115) Comments: ekg showed normal sinus rhythym, normal axis, no acute st/t wave changes Result: [MEASUREMENTS ANALYSIS] Date of Test: 12/05/2015 14:27:41; Heart Rate: 93; OR Interval: 202; QRS: 96; QT Interval: 352; Corrected QT Interval (QTc): 409; P Wave [place]: 48; QRS Wave [place]: -26; T Wave [place] : 55; Blood Pressure: 134/64 [ECG DIAGNOSTIC STATEMENTS] Date of Test: 12/05/2015 14:27:41; Summary: Sinus Rhythm WITHIN NORMAL LIMITS 21-Sep-2015 12 Lead Electrocardiogram Result: Comments: See Note; NOTES: [facility] Cardiovascular Services [address] [place] [address] 12 Lead EKG 09/19/15 0908 MR#: [id number] Acct: [id number] Name: MARICRUZ VIGIL Rep #: [id number] : 1940 75 From: Maurilio Meraz MD [...] wave progression Confirmed by SOLEDAD STREETER, MAURILIO ([id number]), medical transcription editor STACY CARTER (56) on 09/21/2015 11:27:40 AM Referred By: JE Confirmed By:MAURILIO EMRAZ MD 1127 Date Maurilio Meraz MD CC: Maggie Tracey DO Date Dictated: 09/19/15907 Date Transcribed: 09/19/15907 Director Of People: Signed 19-Sep-2015 Discharge Instruction Result: Comments: See Note; NOTES: [facility] Medical Records Department [address] [place] [address] Discharge Instruction 09/19/15 1020 MR#: [id number] Acct: [id number] Name: CLIFFORD CRUZMARICRUZ Stuart Rep #: [id number] : 1940 75 From: Johnnie Baez MD [...] chest pain, or any unexpected problems, contact [facility] doctor. Call [facility] ([phone]) or report to the closest Emergency Room. Call 911 if necessary. 09/19/15 1757 <Electronically signed by Johnnie Baez MD> Date __ Johnnie Baez MD Cosigner Signature (If Indicated): Date CC: Maggie Tracey 19-Sep-2015 Emergency Department Summary Result: Comments: See Note; NOTES: [facility] Medical Records Department [address] [place] [address] Emergency Department Summary MR#: [id number] Acct: [id number] Name: MARICRUZ GRIGSBY Rep #: [id number] : 1940 75 From: Johnnie Baez MD [...] tachycardia at 112. No acute signs of [place] or ischemia. White count 11.4, H and [...] MD C C: Maggie Tracey DO T: [facility] JOB: [id number] 09/19/15 1755 <Electronically signed by Johnnie Baez MD& amp;#62; Date Johnnie Baez MD Cosigner Signature (If Indicated): Date CC: Maggie Tracey DO Date Dictated: 09/19/15 1019 Date Transcribed: 09/19/15 1019 Director Of People: Signed 07-Sep-2015 Chest PA and Lateral Result: Comments: See Note; NOTES: [facility] Imaging Services [address] [place] [address] Verdana 4d Chest PA and Lateral MR#: [id number] Acct: [id number] Name: EAN CRUZMARICRUZ Stuart Rep #: [id number] : 1940 F 75 From: Kali Raymundo MD PCP: Maggie Tracey DO Status: REG CLI Study: Chest PA and Lateral Date of Exam: 09/07/15 Exam# [id number] Ordering Dr: Maggie Irwin DO STUDY: X-RAY [...] FACR at 11:41 EST , Service support [phone], RAD/Chest PA and Lateral IMPRESSION: No significant changes. Stable moderate cardiomegaly. Bilateral interstitial changes more prominent on the right. Savannahi marcus Signed: Kali Raymundo MD, FACR at 11:41 EST , Service support [phone], CC: Maggie Tracey DO Director Of People: Signed 07-Sep-2015 Spirometry (00895) Comments: good effort and curve normal Result: 24-Mar-2015 PT Discharge Summary Result: Comments: See Note; NOTES: [facility] Physical Therapy [facility] [place] [address] Fax REHABILITATION SERVICES DISCHARGE SUMMARY MR#: [id number] Acct: [id number] Name: MARICRUZ GRIGSBY Rep #: [id number] : 1940 75 From: Yuni Clark Referring [...] discharge. Yuni Clark, PT T: NTS JOB: [id number] <Electronically signed by Yuni Clark > 03/24/15 1227 CC: Maggie Tracey DO Signed 17-Feb-2015 Inital Evaluation - PT Result: Comments: See Note; NOTES: [facility] Physical Therapy [facility]. [address] [place] [address] Fax REHABILITATION SERVICES INITIAL EVALUATION MR#: [id number] Acct: [id number] Name: MARICRUZ GRIGSBY Rep #: [id number] : 1940 75 From: Yuni Clark Referring DrDonnie: Maggie Tracey DO Status: REG RCR Insurance : MEDICARE PART A B Eval Date: [facility] DATE OF SERVICE: 02/16/2015 SUBJECTIVE: This [...] care. Yuni Clark, PT T: CHERI JOB: [id number] <Electronically signed by uYni Clark > 02/17/15 1011 CC: Signed For Medicare only, by seng yao this I certify the plan of care. Physicians Signature Date 08-Feb-2015 L/S Spine Min 4 Views Result: Comments: See Note; NOTES: [facility] Imaging Services [address] [place] [address] Radiology Report MR#: [id number] Acct: [id number] Name: MARICRUZ GRIGSBY Rep #: [id number] : 1940 F 74 From: Teo Wayne MD PCP: Maggie Tracey DO Status: REG CLI Study: L/S Spine Min 4 Views Date of Exam: 02/08/15 Exam# [id number] Ordering Dr: Maggie Tracey DO STUDY: X-RAY [...] Wayne MD a t 12:30 EDT Tel [phone], Service support [phone], RAD/L/S Spine Min 4 Views IMPRESSION: Degenerative changes of the spine, as detailed above. Electro nically Signed: Teo Wayne MD at 12:30 EDT Tel [phone], Service support [phone], CC: Maggie Tracey DO Director Of People: Signed 15-Nov-2014 Thyroid Result: Comments: See Note; NOTES: [facility] Imaging Services [address] [place] [address] Ultrasound Report MR#: [id number] Acct: [id number] Name: MARICRUZ GRIGSBY Rep #: [id number] : 1940 F 74 From: Julián Trivedi DO PCP: Maggie Tracey DO Status: REG CLI Study: Thyroid Date of Exam: 11/15/14 Exam# [id number] Ordering Dr: Maggie Tracey DO STUDY: THYROID [...] Julián Trivedi DO at 16:51 EDT Tel [phone], Service support [phone], Fax CC: Maggie Tracey DO Director Of People: Signed 13-Sep-2014 Chest PA and Lateral Result: Comments: See Note; NOTES: [facility] Imaging Services [address] [place] [address] Radiology Report MR#: [id number] Acct: [id number] Name: MARICRUZ GRIGSBY Rep #: [id number] : 1940 F 74 From: Donato Abdi MD PCP: Maggie Tracey DO Status: REG CLI Study: Chest PA and Lateral Date of Exam: 09/13/14 Exam# [id number] Ordering Dr: Maggie Tracey DO STUDY: X [...] at 12:01 EST Tel , Service support [phone], CC: Maggie Tracey DO Director Of People: Signed 15-Jul-2014 Chest PA and Lateral Result: Comments: See Note; NOTES: [facility] Imaging Services [address] [place] [address] Radiology Report MR#: [id number] Acct: [id number] Name: MARICRUZ GRIGSBY Rep #: [id number] : 1940 F 74 From: Teo Wayne MD PCP: Maggie Tracey DO Status: REG CLI Study: Chest PA and Lateral Date of Exam: 07/15/14 Exam# [id number] Ordering Dr: Maggie Tracey DO SANDI DY: [...] Teo Wayne MD at 9:42 EST Tel [phone], Service support [phone], CC: Maggie Tracey DO Director Of People: Signed 10-May-2014 Bilat Scrn Digital & CAD Result: Comments: See Note; NOTES: [facility] Imaging Services [address] [place] [address] Breast Imaging Report MR#: [id number] Acct: [id number] Name: MARICRUZ GRIGSBY ep #: [id number] : 1940 F 74 From: Gene Phillips PCP: Maggie Tracey DO Status: REG CLI Exam# [id number] Ordering Dr: Maggie Tracey DO MAMMOGRAPHY - [...] these results will be sent to the [facility] ient by the facility within 30 days. Approximately 10% of breast cancers are not detected by mammography. A normal mammogram should not delay biopsy of a clinically suspicious abnormality. Electro nically Signed: Jessenia Phillips MD at 19:48 EDT Tel , Service support [phone], CC: Maggie Tracey DO Director Of People: Signed 10-Sep-2013 Dexa Bone Density Study (HP) Result: Comments: See Note; NOTES: [facility] Imaging Services [address] [place] [address] Bone Density Report MR#: [id number] Acct: [id number] Name: MARICRUZ GRIGSBY Rep #: [id number] : 1940 F 73 From: Teo Wayne MD PCP: Maggie Tracey DO Status: REG CLI Study: Dexa Bone Density Study (HP) Date of Exam: 09/10/13 Exam# [id number] Ordering Dr: Maggie Tracey DO STUDY: DUAL [...] M.D. at 11:04 EST , Service support [phone], CC: Maggie Tracey DO Director Of People: Signed Immunization Name Dates Details Influenza (3 years and up) on: 04-Jun-2007 Comments: Lot #: [id number] date: 01/03Amount given: 0.5 MLRoute: IMSite given: Left deltoidGiven by: Nathaniel Beal LPN Influenza (3 years and up) on: 12-May-2009 Comments: Lot #[id number] deltoidgiven by:CDH Family History Unknown Family Member Name Dates Details Cancer Status: Active Diabetes Mellitus Status: Active Father Comments: [place], hypercholesterolemia Status: Active First Degree Relatives Comments: [...] smoker Vital Signs Date Test Result Details 59-Pvm-997662:08 Pulse 76 /min Comments: Pattern: Regular Respiration [...] kg/m2 Body Surface Area Calculated 2.01 m2 34-Ztt-337849:46 Temperature 97.8 f Comments: Method: Temporal Pulse [...] kg/m2 Body Surface Area Calculated 2.01 m2 61-Dji-547884:03 Temperature 98.5 f Comments: Method: Temporal Pulse [...] kg/m2 Body Surface Area Calculated 2.01 m2 60-Hra-050312:05 Pulse 74 /min Comments: Pattern: Regular Respiration [...] kg/m2 Body Surface Area Calculated 2.06 m2 19-Bki-660510:57 Pulse 78 /min Comments: Pattern: Regular Respiration [...] kg/m2 Body Surface Area Calculated 2.06 m2 5-Jse-463440:26 Comments: orthostatic bp assessment: 12:10pmlying- 170/90 76hrsitting- [...] kg/m2 Body Surface Area Calculated 2.06 m2 51-Vqo-399741:29 Comments: Dr. Reyes and had a glauocma [...] administered 81mg asa orally at this time also-[facility] BP Systolic 156 mm[Hg] Comments: Patient Position: [...] Height 65 in Head Circumference 0.00 cm 94-Kej-704856:21 Temperature 97.9 f Comments: Method: Oral Pulse [...] Value Details :50 Rapid Strep Test, Office (93915) Rapid Strep Test, Office Negative (Normal) 9-Qys-436787:58 TSH (54563) Comments: PATIENT NOT FASTINGPERFORMED BY: [facility] Tkhyzy9412 [facility] [id number] TSH 5.590 {uIU/mL} (Abnormal) Range: 0.450-4.500 1-Nsx-316180:58 T4, FREE (THYROXINE) (16758) Comments: PATIENT NOT FASTINGPERFORMED BY: [facility]CoSaint [facility] CenterQkxnhk1329 [facility] [id number] T4,Free(Direct) 1.81 ng/dL (Abnormal) Range: 0.82-1.77 7-Bvb-854604:58 T3, FREE (TRIDOTHYRONINE) (88132) Comments: PATIENT NOT FASTINGPERFORMED BY: [facility] [id number] Triiodothyronine (T3), Free 2.1 pg/mL (Normal) Range: [...] Muscle ABS Comments: Comments: ANTI-LIVER/KIDNEY MICRO AB [id number] [facility] (refer to report for specific site)refer [...] number MELI-DIRECT Negative (Normal) Comments: Performed at: [facility]Co[address] [id number] Director: Constantine Christianson PhD, Phone: [phone] Ceruloplasmin Comments: Comments: ANTI-LIVER/KIDNEY MICRO AB [id number] [facility] (refer to report for specific site)refer to report for address and phone number CERULOPLAS 1560 22.0 mg/dL (Normal) Range: 19.0-39.0 :44 CMV Acute Antibody IgM Comments: Comments: ANTI-LIVER/KIDNEY MICRO AB [id number] [facility] (refer to report for specific site)refer to report for address and phone number CMVIgM AB < 30.0 AU/mL (Normal) Range: 0.0-29.9 Comments: Negative <30.0 Equivocal 30.0 - 34.9 Positive >34.9A positive result is generally indicative of acuteinfection, reactivation or persistent IgM production. :44 Ferritin Comments: Comments: ANTI-LIVER/KIDNEY MICRO AB [id number] SER/[facility] [address] [place], [place], [id number] FERRITIN 236 ng/mL (Normal) Range: 8-252 :44 Free T3 Comments: Comments: ANTI-LIVER/KIDNEY MICRO AB [id number] [facility] Y[address] [place], [place], [id number] FREE T3 1.6 pg/mL (Abnormal) Range: 2.18-3.98 :44 GGTP 64 U/L (Abnormal) Comments: Comments: ANTI-LIVER/KIDNEY MICRO AB [id number] [facility] Sce[address]wwyo[address] [place], [place], [address] Range: 5-55 :44 Hepatitis Panel Acute Comments: Comments: ANTI-LIVER/KIDNEY MICRO AB [id number] [facility] (refer to report for specific site)refer to report for address and phone number HEP C AB <0.1 {s/co_ratio} (Normal) Range: 0.0-0.9 Comments: Negative: < 0.8 Indeterminate: 0.8 - 0.9 Positive: > 0.9 The CDC recommends that a positive HCV antibody result be followed up with a HCV Nucleic Acid Amplification test (343118). HB CORE [id number] Negative (Normal) HB SURF AG Negative (Normal) HEP A IgM 6734 Negative (Normal) :44 Liver Profile Comments: Comments: ANTI-LIVER/KIDNEY MICRO AB [id number] SER/[facility] Yicneqvcya[address] [place], [place], [address] D BILI 0.17 mg/dL (Normal) Range: 0.00-0.30 T BILI 0.60 mg/dL (Normal) Range: 0.20-1.00 ALT 48 U/L (Normal) Range: 13-56 ALK P 93 U/L (Normal) Range: 45-117 AST 43 U/L (Abnormal) Range: 15-37 GLOB 3.5 g/dL (Normal) Range: 2.2-4.2 ALB 3.7 g/dL (Normal) Range: 3.2-5.0 T PROT 7.2 g/dL (Normal) Range: 6.4-8.2 :44 Miscellaneous Lab Procedure Comments: Comments: ANTI-LIVER/KIDNEY MICRO AB [id number] SER/RFTest(s) Ordered: ANTI-LIVER/KIDNEY MICROS AB [id number] SER/[facility] Gwvtekfypb1365 [facility] HospitaldedraCarsonville, [place], [address] [facility] Comments: TEST RESULT UNITS REF INTERVALLiver- Kidney Microsomal Ab <1.0 Units 0.0 - 20.0 Negative 0.0 - 20.0 LAB (Normal) Equivocal 20.1 - 24.9 Positive >24.9LKM type 1 antibodies are detected in patients withautoimmune hepatitis type 2 and in up to 8% ofpatients wi TEST th chronic HCV infection. TESTING PERFORMED AT [facility]. ORIGINAL REPORT ON FILE IN LAB CONTAINS ADDITIONAL TEST SITE INFORMATION. :44 T4 Free Direct Comments: Comments: ANTI-LIVER/KIDNEY MICRO AB [id number] SER/[facility] [address]ooditgn[address] [place], [place], [address] T4 FREE DIRECT 1.06 ng/dL (Normal) Range: 0.76-1.46 10-Aar-17666:44 Thyroid Stim Hormone (TSH) Comments: Comments: ANTI-LIVER/KIDNEY MICRO AB [id number] [facility] M[address]ocvaedh[address] [place], [address] TSH 16.40 {uIU/mL} (Abnormal) Range: 0.358-3.74 83-Wis-06971:44 Transferrin Comments: Comments: ANTI-LIVER/KIDNEY MICRO AB [id number] [facility] (refer to report for specific site)refer to report for address and phone number TRANSFERRN 7319 250 mg/dL (Normal) Range: 200-370 Comments: Performed at: [address] [id number] Director: Constantine Christianson PhD, Phone: [phone] 40-Rqh-559645:16 Bedside Glucose Comments: [facility] LaboratoryPoint of Utup[address] [place] [address] BEDSIDE GLU 152 mg/dL (Abnormal) Range: 70-110 Comments: MANAGEMENT OF PATIENT CARE PER NURSING PROTOCOL 47-Ncj-764326:45 Basic Metabolic Profile (BMP) Comments: [facility] Xivuqisext2126 [facility] [place], [address] GAP 8 (Normal) Range: 5-15 [...] A.D.A. criteria.Please note revised GLUCOSE reference range /02/2018. 83-Pey-931090:45 CBC W/Diff, Automated Comments: [facility] [address] [place], [address] Absolute Lymph 1.73 {X10_3/ul} (Normal) Range: 0.83-4.51 [...] Range: 4.4-11.0 :45 Partial Thromboplast Time Comments: [facility] [address] [place], [address] PTT 33.0 s (Normal) Range: 24.1-36.2 00-Lgv-211406:45 Prothrombin Time w/INR Comments: [facility] [address] [place], [address] INR 0.9 (Normal) PROTIME 12.5 s (Normal) Range: 11.7-14.9 :45 Troponin-I Comments: [facility] [address] [place], [address] TROPONIN-I < 0.015 ng/mL Comments: TROPONIN-I EXPECTED VALUES <0.045 Negative 0.045 - 0.590 Consistent with Cardiac Damage > OR = 0.600 Critical Value Not every elevated troponin is indicative of MN. T (Normal) hesevalues should be used with clinical judgement in examiningthe patient's clinical picture for diagnosis. To establisha diagnosis of MN versus myocardial injury, there must be ademonstrated rise and/ or fall in the troponin values, inaddition to ischemic symptoms, EKG changes, new regionalwall motion abnormality, and/or angiographical evidence. PLEASE NOTE: REFERENCE RANGES EDITED 17 Liver-Kidney <1.0 {Units} Comments: PATIENT NOT FASTINGPERFORMED BY: Chance (app) [facility] [id number] 2:14 Microsomal Ab (Normal) Range: 0.0-20.0 Comments: Negative 0.0 - 20.0 Equivocal 20.1 - 24.9 Positive >24.9 . LKM type 1 antibodies are detected in patients with autoimmune hepatitis type 2 and in up to 8% of patients with chronic HCV infection. 28-Tly-326930:14 HEPATIC FUNCTION PANEL Comments: PATIENT NOT FASTINGPERFORMED BY: [employer] [facility] [id number] (36294) ALT (SGPT) 49 [iU]/L (Abnormal) Range: 0-32 AST (SGOT) 57 [iU]/L (Abnormal) Range: 0-40 Alkaline Phosphatase 100 [iU]/L (Normal) Range: 39-117 Bilirubin, Direct 0.14 mg/dL (Normal) Range: 0.00-0.40 Bilirubin, Total 0.4 mg/dL (Normal) Range: 0.0-1.2 Albumin 4.1 g/dL (Normal) Range: 3.5-4.8 Protein, Total 6.8 g/dL (Normal) Range: 6.0-8.5 04-Fyy-336978:14 HEPATITIS PANEL (76034) Comments: PATIENT NOT FASTINGPERFORMED BY: RevolvSaint Barnabas Behavioral Health CenterTiyuom2977 [facility] [id number] Hep C Virus Ab <0.1 {s/co_ratio} (Normal) Range: 0.0-0.9 Comments: Negative: < 0.8 Indeterminate: 0.8 - 0.9 Positive: > 0.9 . The CDC recommends that a positive HCV antibody result be followed up with a HCV Nucleic Acid Amplification test (442622). Hep B Core Ab, IgM Negative (Normal) HBsAg Screen Negative (Normal) Hep A Ab, IgM Negative (Normal) 50-Nqg-942241:14 ANTIMITOCHONDRIAL ANTIBODY Comments: PATIENT NOT FASTINGPERFORMED BY: [facility]6370 [facility] [id number] (46644) Mitochondrial (M2) Antibody <20.0 {Units} (Normal) Range: 0.0-20.0 Comments: Negative 0.0 - 20.0 Equivocal 20.1 - 24.9 Positive >24.9 . Mitochondrial (M2) Antibodies are found in 90-96% of patients with primary biliary cirrhosis. 50-Nza-780884:14 TRANSFERRIN (80523) Comments: PATIENT NOT FASTINGPERFORMED BY: [facility]6370 [facility] [id number] Transferrin 226 mg/dL (Normal) Range: 200-370 76-Hmw-263291:14 GGT (GAMMA GLUTAMYLTRANSFERASE) Comments: PATIENT NOT FASTINGPERFORMED BY: RevolvSaint Barnabas Behavioral Health CenterJsrcih6601 [facility] [id number] (46485) GGT 59 [iU]/L (Normal) Range: 0-60 05-Pkb-855330:14 FERRITIN (15764) Comments: PATIENT NOT FASTINGPERFORMED BY: CORTEZ [facility]Barn[facility] Hhbueh6887 [facility] [id number] Ferritin, Serum 545 ng/mL (Abnormal) Range: 15-150 50-Jih-114561:14 CMV IGM ANTBDY (55174) Comments: PATIENT NOT FASTINGPERFORMED BY: [facility]6370 [facility] [id number] Cytomegalovirus (CMV) Ab, IgM <30.0 AU/mL (Normal) Range: 0.0-29.9 Comments: Negative <30.0 Equivocal 30.0 - 34.9 Positive >34.9 A positive result is generally indicative of acute infection, reactivation or persistent IgM production. 95-Vsw-871794:14 CERULOPLASMIN (04225) Comments: PATIENT NOT FASTINGPERFORMED BY: [facility]6370 [facility] [id number] Ceruloplasmin 26.3 mg/dL (Normal) Range: 19.0-39.0 31-Jny-293568:14 ASM (ANTI SMOOTH MUSCLE Comments: PATIENT NOT FASTINGPERFORMED BY: [facility]6370 [facility] [id number] ANTIBODY) (51396) Actin (Smooth Muscle) Antibody 5 {Units} (Normal) Range: 0-19 Comments: Negative 0 - 19 Weak positive 20 - 30 Moderate to strong positive >30 . Actin Antibodies are found in 52-85% of patients with autoimmune hepatitis or chronic active hepatitis and in 22% of patients with primary biliary cirrhosis. 98-Awc-131635:14 MELI (ANTINUCLEAR ANTIBODY) Comments: PATIENT NOT FASTINGPERFORMED BY: [facility] Gtepvl4940 [facility] [id number] (50975) MELI Direct Negative (Normal) 45-Ajv-028435:33 HgA1C , Office (50030) HgA1C , Office 7.2 % (Abnormal) Range: 4.6 - 7.1 75-Nvp-624873:38 MELI (ANTINUCLEAR ANTIBODY) Comments: PATIENT NOT FASTINGPERFORMED BY: [facility] Cwsahf5458 [facility] [id number] (42900) MELI Direct Negative (Normal) 64-Dtb-855015:38 VITAMIN B-12 (CYANOCOBALAMIN) Comments: PATIENT NOT FASTINGPERFORMED BY: CORTEZ GalindoBlinpick [facility] [id number] (36590) Vitamin B12 463 pg/mL (Normal) Range: 232-1245 78-Swa-578653:38 TSH (59812) Comments: PATIENT NOT FASTINGPERFORMED BY: CORTEZ [facility] Hotlpr8635 [facility] [id number] TSH 0.062 {uIU/mL} (Abnormal) Range: 0.450-4.500 68-Avw-552835:38 SED RATE ERYTHROCYTE (26943) Comments: PATIENT NOT FASTINGPERFORMED BY: CORTEZ [employer] Lopyze0931 [facility] [id number] Sedimentation Rate-Westergren 7 mm/h (Normal) Range: 0-40 66-Izm-631169:38 METABOLIC PANEL, COMPREHENSIVE Comments: PATIENT NOT FASTINGPERFORMED BY: CORTEZ [employer] Lrppua5364 [facility] [id number] (35727) ALT (SGPT) 52 [iU]/L (Abnormal) Range: 0-32 [...] 8-27 Glucose 134 mg/dL (Abnormal) Range: 65-99 58-Dgr-055410:38 C-REACTIVE PROTEIN (45653) Comments: PATIENT NOT FASTINGPERFORMED BY: RevolvTravis [place] 9577670 [facility] [id number] C-Reactive Protein, Quant 4.8 mg/L (Normal) Range: 0.0-4.9 93-Ncu-772670:38 CBC (AUTO) (67666) Comments: PATIENT NOT FASTINGPERFORMED BY: RevolvTravis [place] 9577670 [facility] [id number] Platelets 248 {x10E3/uL} Range: 150-379 (Normal) RDW [...] mg/L (Abnormal) Comments: PATIENT NOT FASTINGPERFORMED BY: WellkeeperBrenda [place] 9745870 [facility] [id number] BY: [address] [id number] 2:25 Serum Range: 0.6-2.4 Comments: Siemens Immulite 2000 Immunochemiluminometric assay (ICMA) 0-Awv-143239:25 Immunoglobulins Comments: PATIENT NOT FASTINGPERFORMED BY: [place]olvT[place] 9577670 [facility] [id number] BY: [address] [id number] Iga/Ige/Igg/Igm (GAME) (06540) Immunoglobulin E, Total 259 {IU/mL} (Abnormal) Range: 0-100 Immunoglobulin M, Qn, Serum 113 mg/dL (Normal) Range: 26-217 Immunoglobulin A, Qn, Serum 130 mg/dL (Normal) Range: 64-422 Immunoglobulin G, Qn, Serum 837 mg/dL (Normal) Range: 700-1600 1-Fak-481418:25 LDH (LD) (LACTATE Comments: PATIENT NOT FASTINGPERFORMED BY: Revolv[address] [id number] BY: [address] [id number] DEHYDROGENASE) (37124) LDH 195 [iU]/L (Normal) Range: 119-226 1-Qwk-319245:25 METABOLIC PANEL, Comments: PATIENT NOT FASTINGPERFORMED BY: Revolv[address] [id number] BY: [address] [id number] COMPREHENSIVE (51283) ALT (SGPT) 47 [iU]/L (Abnormal) Range: 0-32 [...] 8-27 Glucose 139 mg/dL (Abnormal) Range: 65-99 0-Lrp-830034:25 CBC, PLATELETS & AUT DIFF Comments: PATIENT NOT FASTINGPERFORMED BY: CB [facility] Sxipba9939 [facility] [id number] BY: BN [facility] Mtgmdpsgrh2255 [facility] [id number] (12170) Immature Grans (Abs) 0.0 {x10E3/uL} (Normal) Range: [...] 3.77-5.28 WBC 7.2 {x10E3/uL} (Normal) Range: 3.4-10.8 13-Mem-494829:28 Microscopic Examination Comments: PATIENT NOT FASTINGPERFORMED BY: Revolv Shidonni [facility] [id number] Bacteria None seen (Normal) Mucus Threads Present (Normal) Cast Type Hyaline casts (Normal) Casts Present {/lpf} (Abnormal) Epithelial Cells (non renal) 0-10 {/hpf} (Normal) Range: 0 - 10 RBC 0-2 {/hpf} (Normal) Range: 0 - 2 WBC >30 {/hpf} (Abnormal) Range: 0 - 5 99-Lfu-055582:24 URINE RANI CULTURE-RADHA COL Comments: PATIENT NOT FASTINGPERFORMED BY: Rev[facility] Pbpjud4830 [facility] [id number] Information: SRC:UC COUNT (34339) Antimicrobial MIHEAD (Normal) Comments: S = Susceptible; I = Intermediate; R = Resistant P = Positive; N = Negative MICS are expressed in micrograms per mL Antibiotic RSLT#1 RSLT#2 RS Susceptibility LT#3 RSLT#4Amoxicillin/Clavulanic Acid SAmpicillin RCefepime SCeftriaxone SCefuroxime SCephalothin SCiprofloxacin SGentamicin SImipenem SNitrofurantoin SPiperacillin RTetracycline STobram ycin STrimethoprim/Sulfa S Result 1 Raoultella Comments: 5,000 Colonies/mL planticola (Abnormal) Urine Final report Culture,Comprehensive (Abnormal) 33-Ztz-482582:28 MICROALBUMIN: CREATININE RATIO Comments: PATIENT NOT FASTINGPERFORMED BY: [employer] Yuikjy2334 [facility] [id number] (85345) AND (48539) Alb/Creat Ratio 215.8 {mg/g_creat} (Abnormal) Range: 0.0-30.0 Albumin, Urine 245.4 ug/mL (Normal) Creatinine, Urine 113.7 mg/dL (Normal) 46-Ccc-382628:28 URINALYSIS, W/ MICRO (86091) Comments: PATIENT NOT FASTINGPERFORMED BY: [facility]6370 [facility] [id number] Microscopic Examination See below: (Normal) Comments: Microscopic was indicated and was performed. Nitrite, Urine Negative (Normal) Urobilinogen,Semi-Qn 0.2 mg/dL (Normal) Range: 0.2-1.0 Bilirubin Negative (Normal) Occult Blood Negative (Normal) Ketones Negative (Normal) Glucose Trace (Abnormal) Protein 1+ (Abnormal) WBC Esterase 1+ (Abnormal) Appearance Clear (Normal) Urine-Color Yellow (Normal) pH 5.5 (Normal) Range: 5.0-7.5 Specific Horatio 1.025 (Normal) Range: 1.005-1.030 80-Lcj-222257:28 METABOLIC PANEL, COMPREHENSIVE Comments: PATIENT NOT FASTINGPERFORMED BY: [facility]6370 [facility] [id number] (80998) ALT (SGPT) 37 [iU]/L (Abnormal) Range: 0-32 [...] Glucose, Serum 179 mg/dL (Abnormal) Range: 65-99 19-Kll-335915:28 CBC, PLATELETS & AUT DIFF Comments: PATIENT NOT FASTINGPERFORMED BY: [facility] Nibyul9870 [facility] [id number] (35741) Immature Grans (Abs) 0.0 {x10E3/uL} (Normal) Range: [...] 3.77-5.28 WBC 9.3 {x10E3/uL} (Normal) Range: 3.4-10.8 39-Syz-055684:28 TSH (THYROID STIMULATING Comments: PATIENT NOT FASTINGPERFORMED BY: [facility]6370 [facility] [id number] HORMONE) (22885) TSH 23.220 {uIU/mL} (Abnormal) Range: 0.450-4.500 58-Lpw-321809:28 LIPID PANEL (95343) Comments: PATIENT NOT FASTINGPERFORMED BY: [facility]6370 [facility] [id number] LDL/HDL Ratio 1.7 {ratio_units} (Normal) Range: 0.0-3.2 Comments: LDL/HDL Ratio Men Women 1/2 Avg.Risk 1.0 1.5 Av g.Risk 3.6 3.2 2X Avg.Risk 6.2 5.0 3X Avg.Risk 8.0 6.1 LDL Cholesterol Calc 83 mg/dL (Normal) Range: 0-99 VLDL Cholesterol Priscilla 42 mg/dL (Abnormal) Range: 5-40 HDL Cholesterol 48 mg/dL (Normal) Triglycerides 208 mg/dL (Abnormal) Range: 0-149 Cholesterol, Total 173 mg/dL (Normal) Range: 100-199 13-Irl-926283:28 CALCIFEDIOL (79013) Comments: PATIENT NOT FASTINGPERFORMED BY: [facility]6370 [facility] [id number] Vitamin D, 25-Hydroxy 25.4 ng/mL (Abnormal) Range: 30.0-100.0 Comments: Vitamin D deficiency has been defined by the [place] and an Endocrine Society practice guideline as alevel of serum 25-OH vitamin D less than 20 ng/mL (1,2).The Endocrine Society went on to further define vitamin Dinsufficiency as a level between 21 and 29 ng/mL (2).1. IOM ([place] [employer]). 2010. Dietary reference intakes for calcium and D. [place]: The National Academies Press.2. Rachel CAMACHO, Yael MARLEY, Dunia HERRERA, et al. Evaluation, treatment, and prevention of vitamin D deficiency: an Endocrine Society clinical practice guideline. JCEM. 2010; 96(7):1911-30. 86-Nvy-618012:40 Basic Metabolic Profile (BMP) Comments: 'TROP' Serial specimen #1, #2, #3, or #4: [facility] Rtmvovfdtw[address] [place], [place], [address] GAP 11 (Normal) Range: 5-15 CO2 24.0 [...] 126 mg/dLsuggests DIABETES MELLITUS per A.D.A. criteria. 40-Yux-378426:40 BNP,B-Type NATRIURETIC PEPTIDE Comments: [facility] [address]wvijo[address] [place], [place], [address] B-TYPE SANJU PEP 13.3 pg/mL (Normal) Range: 0-100 12-Rbx-865895:40 CBC W/Diff, Automated Comments: [facility] [address]fglg[address] [place], [address] Absolute Lymph 1.65 {X10_3/ul} (Normal) [...] 4.2-5.4 WBC 4.1 K/mm3 (Abnormal) Range: 4.4-11.0 12-Omk-278188:40 Troponin-I Comments: 'TROP' Serial specimen #1, #2, #3, or #4: [address] [place] [address] [address]74 [place], [address] TROPONIN-I < 0.02 ng/mL (Normal) Comments: TROPONIN-I EXPECTED VALUES <0.05 NEGATIVE 0.06 - 0.59 AT RISK OF MN > OR = 0.60 SUGGEST MN 38-Ave-216785:08 Microscopic Examination Comments: PATIENT WAS FASTINGPERFORMED BY: [facility] Fxotgi0354 [facility] [id number] Bacteria Few (Normal) Mucus Threads Present (Normal) Cast Type Hyaline casts (Normal) Casts Present {/lpf} (Abnormal) Epithelial Cells (non renal) 0-10 {/hpf} (Normal) Range: 0 - 10 RBC 0-2 {/hpf} (Normal) Range: 0 - 2 WBC 11-30 {/hpf} (Abnormal) Range: 0 - 5 06-Dxe-143225:08 CALCIFIDIOL (53354) VIT D 25 Comments: PATIENT WAS FASTINGPERFORMED BY: [facility]6370 [facility] [id number] Vitamin D, 25-Hydroxy 33.5 ng/mL (Normal) Range: 30.0-100.0 Comments: Vitamin D deficiency has been defined by the [place] of[facility] and an Endocrine Society practice guideline as alevel of serum 25-OH vitamin D less than 20 ng/mL (1,2).The Endocrine Society went on to further define vitamin Dinsufficiency as a level between 21 and 29 ng/mL (2).1. IOM ([place]). 2010. Dietary reference intakes for calcium and D. [place]: The National AcademFosubo Press.2. Rachel MF, Yael MARLEY, Dunia HERRERA, et al. Evaluation, treatment, and prevention of vitamin D deficiency: an Endocrine Society clinical practice guideline. JCEM. 2010; 96(7):1911-30. 67-Ekx-493870:08 TSH (61084) Comments: PATIENT WAS FASTINGPERFORMED BY: LabCoSaint [facility]abas Behavioral Health CenterZlsvfl1334 [facility] [id number] TSH 3.700 {uIU/mL} (Normal) Range: 0.450-4.500 72-Byq-501327:08 LIPID PANEL (09785) Comments: PATIENT WAS FASTINGPERFORMED BY: LabCoSaint Barnabas Behavioral Health CenterBvagja7381 [facility] [id number] LDL/HDL Ratio 1.8 {ratio_units} (Normal) Range: 0.0-3.2 Comments: LDL/HDL Ratio Men Women 1/2 Avg.Risk 1.0 1.5 Av g.Risk 3.6 3.2 2X Avg.Risk 6.2 5.0 3X Avg.Risk 8.0 6.1 LDL Cholesterol Calc 84 mg/dL (Normal) Range: 0-99 VLDL Cholesterol Priscilla 49 mg/dL (Abnormal) Range: 5-40 HDL Cholesterol 46 mg/dL (Normal) Triglycerides 243 mg/dL (Abnormal) Range: 0-149 Cholesterol, Total 179 mg/dL (Normal) Range: 100-199 07-Mle-382724:08 URINALYSIS, W/ MICRO (36470) Comments: PATIENT WAS FASTINGPERFORMED BY: Huan Xiong Shidonni [facility] [id number] Microscopic Examination See below: (Normal) Comments: Microscopic was indicated and was performed. Nitrite, Urine Negative (Normal) Urobilinogen,Semi-Qn 0.2 mg/dL (Normal) Range: 0.2-1.0 Bilirubin Negative (Normal) Occult Blood Negative (Normal) Ketones Negative (Normal) Glucose Negative (Normal) Protein 2+ (Abnormal) WBC Esterase 1+ (Abnormal) Appearance Clear (Normal) Urine-Color Yellow (Normal) pH 5.5 (Normal) Range: 5.0-7.5 Specific Horatio >=1.030 (Abnormal) Range: 1.005-1.030 94-Tbm-743320:08 MICROALBUMIN: CREATININE RATIO Comments: PATIENT WAS FASTINGPERFORMED BY: Huan Xiong Mkkpae5380 [facility] [id number] (00558) AND (21832) Microalb/Creat Ratio 246.3 {mg/g_creat} (Abnormal) Range: 0.0-30.0 Microalbumin, Urine 433.7 ug/mL (Normal) Comments: Results confirmed ondilution. Creatinine, Urine 176.1 mg/dL (Normal) 27-Vqa-294177:08 METABOLIC PANEL, COMPREHENSIVE Comments: PATIENT WAS FASTINGPERFORMED BY: [facility]vMemorial Medical CenterXzvaxf3561 [facility] [id number] (82900) ALT (SGPT) 26 [iU]/L (Normal) Range: 0-32 [...] Glucose, Serum 158 mg/dL (Abnormal) Range: 65-99 54-Pqt-072597:08 CBC W/AUTO DIFF WBC (74915) Comments: PATIENT WAS FASTINGPERFORMED BY: LabCoSaint Barnabas Behavior[facility] Health CenterTjvjhh3162 [facility] [id number] Immature Grans (Abs) 0.0 {x10E3/uL} (Normal) Range: [...] (Normal) Range: 3.4-10.8 :31 HgA1C , Office (79200) HgA1C , Office 6.6 % (Normal) Range: 4.6 - 7.1 :31 Blood Glucose , Office (37243) Blood Glucose , Office 143 (Normal) :45 CBC W/Diff, Automated Comments: [facility] [address] [place], [place], [id number] Absolute Lymph 1.46 {X10_3/ul} (Normal) Range: 0.83-4.51 [...] 4.2-5.4 WBC 12.9 K/mm3 (Abnormal) Range: 4.4-11.0 3-Pav-196690:45 Comprehensive Metabolic Profil Comments: [facility] [address] [place], [place], [address] GAP 8 (Normal) Range: 5-15 CO2 27.0 [...] 126 mg/dLsuggests DIABETES MELLITUS per A.D.A. criteria. 4-Mzc-004624:45 Prothrombin Time w/INR Comments: [facility] [address] [place], [place], [address] INR 0.9 (Normal) PROTIME 11.6 s (Abnormal) Range: 11.7-14.9 5-Jhw-258818:12 HgA1C , Office (07155) HgA1C , Office 6.5 % (Normal) Range: 4.6 - 7.1 7-Aau-409424:12 Blood Glucose , Office (88658) Blood Glucose , Office 122 (Normal) :39 Lipid Profile Comments: [facility] [address] [place], [place], [id number] VLDL 39 mg/dL (Normal) Range: 5-40 LDL [...] report for address and phone number METHYLM [phone] nmol/L (Normal) Range: 0-378 Comments: Performed at: [address] [id number] Director: Frantz Josue MD, Phone: [phone] 64-Zvg-41477:39 Vitamin B12 531 pg/mL (Normal) Comments: [facility] [address] [place], [place], [address] Range: 211-911 86-Hke-98188:39 Vitamin D,25 Hydroxy Comments: [facility] [address]hr[address], [address] Vitamin D 25-OH 44.7 ng/mL (Normal) Comments: Vitamin D 25(OH) Status Range Deficiency <20 ng/mL (50nmol/L) Insuffciency 20 - 30 ng/mL (50 - 75 nmol/L) Sufficiency 30 - 100 ng/mL (75 - 250 nmol/L) Toxicity >100 ng/mL (>250 nmol/L) 38-Dsb-42062:29 Bedside Glucose Comments: [facility] LaboratoryPoint of Zohk[address] [place] [address] BEDSIDE GLU 139 mg/dL (Abnormal) Range: 70-110 Comments: No Action RequiredMANAGEMENT OF PATIENT CARE PER NURSING PROTOCOL COLON BIOPSY (CHOOSE See Note (Normal) Comments: [facility] [address] [place], [phone] :54 SITE) Comments: Patient: MARICRUZ GRIGSBY : 1940 (76/F) Acct Num: [id number] Phys: Constantine Saunders Unit Num: [id number] Loc: LABSPEC Specimen: [id number] Received: 11/05/16 - 1631 Spe c Type: [...] one cassette. / RY:rg 11/06/16 TC:1 CPT: 72199 x2 HEADER OPERATION: Colonoscopy with polypectomy PRE-OP [...] Signed Zane Newtonin 11/07/16 <signature on file> 38-Gtf-658091:47 CBC W/Diff, Automated Comments: [facility] [address] [place], [address] Absolute Lymph 1.88 {X10_3/ul} (Normal) Range: 0.83-4.51 [...] 4.2-5.4 WBC 8.8 K/mm3 (Normal) Range: 4.4-11.0 12-Aoc-313595:42 Comprehensive Metabolic Profil Comments: Order Date: 10/10/16Order Info: [id number] - *CMP Complete Metabolic PanelOrder Info: [id number] - *IBC Iron \E AND E\ Total Iron Binding CapacityOrder Info: 2276-4 - *FerritinComments: Reason:Order Date: 10/10/16Order Info: [id number] - *KAPLAMBDA - [place] Lamda Light ChainsComments: Reason:[facility] [address] [place], [address] GAP 9 (Normal) Range: 5-15 CO2 28.0 [...] <126 mg/dLsuggests IMPAIRED HOMEOSTASIS per A.D.A. criteria. 98-Pqq-908370:42 Ferritin Comments: Order Date: 10/10/16Order Info: [id number] - *CMP Complete Metabolic PanelOrder Info: [id number] - *IBC Iron \E AND E\ Total Iron Binding CapacityOrder Info: 2276-4 - *FerritinComments: Reason:Order Date: 10/10/16Order Info: [id number] - *KAPLAMBDA - [place] Lamda Light ChainsComments: Reason:[facility] [address] [place], [place], [address] FERRITIN 45 ng/mL (Normal) Range: 8-252 59-Rul-206924:42 DEEPALI + Protein Elect, Serum Comments: Order Date: 10/10/16Order Info: [id number] - *IMEL DEEPALI + Prot Elec, Serum 1495Order Info: [id number] - *[place]DA - [place] Lamda Light ChainsOrder Date: 10/10/16Order Info: [id number] - *IMEL DEEPALI + Prot Elec, Serum 1495Order Info: [id number] - *K[place]AM[place]DA - [place] Lamda Light ChainsOrder Date: 10/10/16Order Info: [id number] - *[place]DA - [place] Lamda Light ChainsIs Patient Fasting? NComments: Reason:[facility] (refer to report for specific site)refer to report for address and phone number NOTE: Comment (Normal) Comments: Protein electrophoresis scan will follow via computer,mail, or cryptozoologist delivery. DEEPALI RESULT,S Comment (Normal) Comments: Immunofixation shows IgG monoclonal protein with lambdalight chain specificity. A/G RATIO 1.4 (Normal) Range: 0.7-1.7 GLOBULIN, TOTAL 2.8 g/dL (Normal) Range: 2.2-3.9 M-SPIKE 0.3 g/dL (Abnormal) GAMMA GLOBULIN 0.8 g/dL (Normal) Range: 0.4-1.8 BETA GLOBULIN 0.9 g/dL (Normal) Range: 0.7-1.3 IPLFM-2-FDMS 0.9 g/dL (Normal) Range: 0.4-1.0 NMEAG-7-VCDX 0.2 g/dL (Normal) Range: 0.0-0.4 ALBUMIN 3.7 g/dL (Normal) Range: 2.9-4.4 IMMUNOGL M 100 mg/dL (Normal) Range: 26-217 IMMUNO A 106 mg/dL (Normal) Range: 64-422 IMMUNO G 693 mg/dL (Abnormal) Range: 700-1600 PROTEIN,TOTAL 6.5 g/dL (Normal) Range: 6.0-8.5 79-Bse-797796:42 Iron+Iron Binding Capacity Comments: Order Date: 10/10/16Order Info: 0786-1 - *CMP Complete Metabolic PanelOrder Info: 19465-1 - *IBC Iron \E AND E\ Total Iron Binding CapacityOrder Info: 2276-4 - *FerritinComments: Reason:Order Date: 10/10/16Order Info: 17715-7 - *K[place]AMBDA - [place] Lamda Light ChainsComments: Reason:[facility] [address] [place], [place], [address] IRON SATURATION 15.9 % (Normal) Range: 15.0-55.0 IRON 49 ug/dL (Abnormal) Range: 50-170 TIBC 309 ug/dL (Normal) Range: 250-450 08-Xuu-117004:42 [place] Lambda Light Chains Comments: Order Date: 10/10/16Order Info: 0282-1 - *IMEL DEEPALI + Prot Elec, Serum 1495Order Info: [id number] - *[place] - [place] Lamda Light ChainsOrder Date: 10/10/16Order Info: 0282-1 - *IMEL DEEPALI + Prot Elec, Serum 1495Order Info: [id number] - *[place] - [place] Lamda Light ChainsOrder Date: 10/10/16Order Info: [id number] - *[place] - [place] Lamda Light ChainsIs Patient Fasting? NComments: Reason:[facility] (refer to report for specific site)refer to report for address and phone number KAPPA/LAMBDA % 0.98 (Normal) Range: 0.26-1.65 Comments: Performed at: - [facility] [id number] Director: Constantine Christianson PhD, Phone: [phone] FR LAMBDA LT CH 19.06 mg/L (Normal) Range: 5.71-26.30 FR KAPPA LT CHN 18.62 mg/L (Normal) Range: 3.30-19.40 15-Uro-235609:06 VITAMIN B-12 (CYANOCOBALAMIN) Comments: PATIENT NOT FASTINGPERFORMED BY: [facility] Ptrfhp3373 [facility] [id number] (22784) Vitamin B12 709 pg/mL (Normal) Range: 211-946 :45 Blood Glucose , Office (61443) Blood Glucose , Office 104 (Normal) :45 HgA1C , Office (32440) HgA1C , Office 6.7 % (Normal) Range: 4.6 - 7.1 :54 CBC W/Diff, Automated Comments: [facility] [address] [place], [place], [address] Absolute Lymph 1.51 {X10_3/ul} (Normal) Range: 0.83-4.51 [...] 4.2-5.4 WBC 7.0 K/mm3 (Normal) Range: 4.4-11.0 09-Fyj-78988:54 Comprehensive Metabolic Profil Comments: [facility] [address] [place], [place], [address] GAP 8 (Normal) Range: 5-15 CO2 28.0 [...] per A.D.A. criteria. :54 Lipid Profile Comments: [facility] [address] [place], [address] VLDL 38 mg/dL (Normal) Range: [...] High Risk :54 Microalb:Creat Ratio,Random UR Comments: [facility] [address] [place], [address] MALB:CREAT 223.2 {mg/g_CRE} (Abnormal) MICROALBUMIN,UR 250.0 mg/L (Normal) UR CREAT 112.00 mg/dL (Normal) :54 Thyroid Stim Hormone (TSH) Comments: [facility] [address] [place], [address] TSH 1.13 {uIU/mL} (Normal) Range: 0.358-3.74 :54 Urinalysis, Complete Comments: How was Urine Obtained? CLEAN [facility] [address] [place], [address] MUCUS, URINE 0 SEEN {/hpf} [...] (Normal) CLARITY Clear (Normal) COLOR Yellow (Normal) 30-Jrh-86739:54 Vitamin D,25 Hydroxy Comments: [facility] [address] [place], [place], [address] Vitamin D 25-OH 31.6 ng/mL (Normal) Comments: Vitamin D 25(OH) Status Range Deficiency <20 ng/mL (50nmol/L) Insuffciency 20 - 30 ng/mL (50 - 75 nmol/L) Sufficiency 30 - 100 ng/mL (75 - 250 nmol/L) Toxicity >100 ng/mL (>250 nmol/L) 83-Riv-810762:07 VITAMIN B-12 (CYANOCOBALAMIN) Comments: PATIENT NOT FASTINGPERFORMED BY: [facility] [id number] (29156) Vitamin B12 1119 pg/mL (Abnormal) Range: 211-946 95-Iah-807869:23 Microscopic Examination Comments: PATIENT WAS FASTINGPERFORMED BY: Chance (app) [facility] [id number] Bacteria Few (Normal) Mucus Threads Present (Normal) Epithelial Cells (non renal) 0-10 {/hpf} (Normal) Range: 0 - 10 RBC 0-2 {/hpf} (Normal) Range: 0 - 2 WBC >30 {/hpf} (Abnormal) Range: 0 - 5 98-Rrd-037465:23 VITAMIN B-12 (CYANOCOBALAMIN) Comments: PATIENT WAS FASTINGPERFORMED BY: [facility] [id number] (37317) Vitamin B12 >2000 pg/mL (Abnormal) Range: 211-946 31-Nru-315070:23 TSH (69683) Comments: PATIENT WAS FASTINGPERFORMED BY: [facility]6370 [facility] [id number] TSH 5.380 {uIU/mL} (Abnormal) Range: 0.450-4.500 08-Lwz-288531:23 URINALYSIS, W/ MICRO (69524) Comments: PATIENT WAS FASTINGPERFORMED BY: [facility]6370 [facility] [id number] Microscopic Examination See below: (Normal) Comments: Microscopic was indicated and was performed. Nitrite, Urine Negative (Normal) Urobilinogen,Semi-Qn 0.2 mg/dL (Normal) Range: 0.2-1.0 Bilirubin Negative (Normal) Occult Blood Negative (Normal) Ketones Negative (Normal) Glucose Negative (Normal) Protein Trace (Normal) WBC Esterase 2+ (Abnormal) Appearance Clear (Normal) Urine-Color Yellow (Normal) pH 6.0 (Normal) Range: 5.0-7.5 Specific Horatio 1.022 (Normal) Range: 1.005-1.030 :23 MICROALBUMIN: CREATININE RATIO Comments: PATIENT WAS FASTINGPERFORMED BY: [facility]6370 [facility] [id number] (11052) AND (90219) Microalb/Creat Ratio 24.2 {mg/g_creat} (Normal) Range: 0.0-30.0 Microalbumin, Urine 35.4 ug/mL (Normal) Creatinine, Urine 146.0 mg/dL (Normal) 88-Dag-959884:23 METABOLIC PANEL, COMPREHENSIVE Comments: PATIENT WAS FASTINGPERFORMED BY: [facility]6370 [facility] [id number] (39324) ALT (SGPT) 25 [iU]/L (Normal) Range: 0-32 [...] Glucose, Serum 143 mg/dL (Abnormal) Range: 65-99 44-Rdu-866360:23 CBC W/AUTO DIFF WBC (97583) Comments: PATIENT WAS FASTINGPERFORMED BY: [facility]CoSaint [facility] CenterYwdfab9766 [facility] [id number] Immature Grans (Abs) 0.0 {x10E3/uL} (Normal) Range: [...] 3.77-5.28 WBC 7.4 {x10E3/uL} (Normal) Range: 3.4-10.8 80-Voe-764907:23 CALCIFIDIOL (10404) VIT D 25 Comments: PATIENT WAS FASTINGPERFORMED BY: [facility]6370 [facility] [id number] Vitamin D, 25-Hydroxy 28.9 ng/mL (Abnormal) Range: 30.0-100.0 Comments: Vitamin D deficiency has been defined by the [place] and an Endocrine Society practice guideline as alevel of serum 25-OH vitamin D less than 20 ng/mL (1,2).The Endocrine Society went on to further define vitamin Dinsufficiency as a level between 21 and 29 ng/mL (2).1. IOM ([place]). 2010. Dietary reference intakes for calcium and D. [place]: The National Academies Press.2. Rachel CAMACHO, Yael MARLEY, Dunia HERRERA, et al. Evaluation, treatment, and prevention of vitamin D deficiency: an Endocrine Society clinical practice guideline. JCEM. 2010; 96(7):1911-30. :22 HgA1C , Office (68874) HgA1C , Office 7.1 % (Normal) Range: 4.6 - 7.1 :22 Blood Glucose , Office (40552) Blood Glucose , Office 171 (Normal) :10 Basic Metabolic Profile (BMP) Comments: Serial Specimen #1, #2 or #3? 1'TROP' Serial specimen #1, #2, #3, or #4: [facility] [address] [place], [place], [address] GAP 8 (Normal) Range: 5-15 CO2 28.0 [...] A.D.A. criteria. :10 CBC W/Diff, Automated Comments: [facility] [address] [place], [address] Absolute Lymph 1.32 {X10_3/ul} (Normal) [...] 4.2-5.4 WBC 8.5 K/mm3 (Normal) Range: 4.4-11.0 8-Gyw-170701:10 CK-MB Quantitative and Index Comments: Serial Specimen #1, #2 or #3? 1'TROP' Serial specimen #1, #2, #3, or #4: 1[facility] [address]sp[address] [place], [address] CKRI 1.3 % (Normal) Range: 0.0-1.4 Comments: RELATIVE INDEX >1.5% IS PRESUMPTIVELY POSITIVE CPKMB 4.3 ng/mL (Normal) Range: 0.0-5.0 Comments: CK-MB and RI Interpretation MB Relative Index Non-AMI <or= 5 NA Indeterminate > 5 <or= 4 AMI > 5 > 4 CPK TOTAL 333 U/L (Abnormal) Range: 26-192 9-Byb-409767:10 Troponin-I Comments: Serial Specimen #1, #2 or #3? 1'TROP' Serial specimen #1, #2, #3, or #4: 1[facility] [address] [place], [place], [address] TROPONIN-I < 0.02 ng/mL (Normal) Comments: TROPONIN-I EXPECTED VALUES <0.05 NEGATIVE 0.06 - 0.59 AT RISK OF MN > OR = 0.60 SUGGEST MN :55 Blood Glucose , Office (05526) Blood Glucose , Office 117 (Normal) :36 HgA1C , Office (38525) HgA1C , Office 7.1 % (Normal) Range: 4.6 - 7.1 :52 CBC W/Diff, Automated Comments: CBCD WITH WBC PER [facility]WTr[facility] [address]amplwc[address] [place], [place], [address] Absolute Lymph 1.67 {X10_3/ul} (Normal) Range: 0.83-4.51 [...] Range: 4.4-11.0 30-Nov-20156:52 Comprehensive Metabolic Profil Comments: [facility] [address] [place], [address] GAP 10 (Normal) Range: 5-15 CO2 26.0 [...] specificity.Bence Jorge Protein positive; lambda type.Performed at: [facility] [place] [address]Lab Dire ctor: Constantine Christianson PhD, Phone: [phone] :[phone] Immunofixation, Serum Comments: [facility] (refer to report for specific site)refer to report for address and phone number DEEPALI RESULT,S Comment (Normal) Comments: Immunofixation shows IgG monoclonal protein with lambdalight chain specificity. IMMUNOGL M 112 mg/dL (Normal) Range: 26-217 IMMUNO A 110 mg/dL (Normal) Range: 64-422 IMMUNO G 783 mg/dL (Normal) Range: 700-1600 :52 [place] Lambda Light Chains Comments: [facility] (refer to report for specific site)refer to report for address and phone number KAPPA/LAMBDA % 1.03 (Normal) Range: 0.26-1.65 FR LAMBDA LT CH 21.11 mg/L (Normal) Range: 5.71-26.30 FR KAPPA LT CHN 21.66 mg/L (Abnormal) Range: 3.30-19.40 :52 Lipid Profile Comments: [facility] [address] [place], [address] ; review OV 12/02/15 VLDL 35 mg/dL [...] High Risk :52 Microalb:Creat Ratio,Random UR Comments: [facility] [address] [place], [id number] MALB:CREAT 44.5 {mg/g_CRE} (Abnormal) MICROALBUMIN,UR 68.1 mg/L (Normal) UR CREAT 153.00 mg/dL (Normal) :52 Vitamin B12 268 pg/mL (Normal) Comments: [facility] [address] [place], [address] Range: 211-911 Comments: ADDENDA: normal and has f/u this saturday:52 Vitamin D,25 Hydroxy Comments: [facility] [address] [place], [address] Vitamin D 25-OH 48.8 ng/mL (Normal) Comments: Vitamin D 25(OH) Status Range Deficiency <20 ng/mL (50nmol/L) Insuffciency 20 - 30 ng/mL (50 - 75 nmol/L) Sufficiency 30 - 100 ng/mL (75 - 250 nmol/L) Toxicity >100 ng/mL (>250 nmol/L) :15 Basic Metabolic Profile (BMP) Comments: [facility] [address] [place], [address] GAP 10 [...] 200 mg/dLsuggests DIABETES MELLITUS per A.D.A. criteria. 63-Rhi-20283:15 CBC W/Diff, Automated Comments: [facility] [address] [place], [address] RED CELL MORPH NORM C+C {NORMAL} (Normal) [...] 4.2-5.4 WBC 11.4 K/mm3 (Abnormal) Range: 4.4-11.0 06-Isq-470862:08 HgA1C , Office (94862) HgA1C , Office 6.8 % (Normal) Range: 4.6 - 7.1 5-Cpb-552135:30 FERRITIN (37387) Comments: PATIENT WAS FASTINGPERFORMED BY: [facility] Rcxdyw8806 [facility] [id number] Ferritin, Serum 121 ng/mL (Normal) Range: 15-150 7-Ruz-782292:30 IRON (45164) Comments: PATIENT WAS FASTINGPERFORMED BY: [facility] Zkihor4955 [facility] [id number] Iron, Serum 56 ug/dL (Normal) Range: 35-155 [...] - 159 >60 years 27 - 139 4-Zke-655718:30 TSH (26129) Comments: PATIENT WAS FASTINGPERFORMED BY: [facility] Kbtrum1177 [facility] [id number] TSH 1.660 {uIU/mL} (Normal) Range: 0.450-4.500 2-Itm-058394:30 LIPID PANEL (64670) Comments: PATIENT WAS FASTINGPERFORMED BY: [facility] Raehgf2382 [facility] [id number] LDL/HDL Ratio 2.1 {ratio_units} (Normal) Range: 0.0-3.2 [...] Cholesterol, Total 190 mg/dL (Normal) Range: 100-199 4-Fnc-130345:30 METABOLIC PANEL, COMPREHENSIVE Comments: PATIENT WAS FASTINGPERFORMED BY: [facility] Zfmkiy8970 [facility] [id number] (65199) ALT (SGPT) 24 [iU]/L (Normal) Range: 0-32 [...] Glucose, Serum 122 mg/dL (Abnormal) Range: 65-99 7-Oyq-010067:30 Vitamin D Hydroxy (38060) Comments: PATIENT WAS FASTINGPERFORMED BY: [facility]keeperThe Rehabilitation InstituteDtbicg5007 [facility] [id number] Vitamin D, 25-Hydroxy 25.3 ng/mL (Abnormal) Range: 30.0-100.0 Comments: Vitamin D deficiency has been defined by the [place] and an Endocrine Society practice guideline as alevel of serum 25-OH vitamin D less than 20 ng/mL (1,2).The Endocrine Society went on to further define vitamin Dinsufficiency as a level between 21 and 29 ng/mL (2).1. IOM ([place]). 2010. Dietary reference intakes for calcium and D. [place]: The National Academies Press.2. Rachel MF, Yael NC, Dunia HERRERA, et al. Evaluation, treatment, and prevention of vitamin D deficiency: an Endocrine Society clinical practice guideline. JCEM. 2010; 96(7):1911-30. 8-Nvo-860352:30 CBC W/AUTO DIFF WBC Comments: PATIENT WAS FASTINGPERFORMED BY: [facility]vMemorial Medical CenterFzkelx7797 [facility] [id number] Information: [id number] (80146) Immature Grans (Abs) 0.0 {x10E3/uL} (Normal) Range: [...] 3.77-5.28 WBC 8.2 {x10E3/uL} (Normal) Range: 3.4-10.8 9-Hyz-116159:30 serum free light chains Comments: PATIENT WAS FASTINGPERFORMED BY: [facility] [id number] (96249) [place]/Lambda Ratio,S 0.81 (Normal) Range: 0.26-1.65 Free Lambda Lt Chains,S 17.93 mg/L (Normal) Range: 5.71-26.30 Free [place] Lt Chains,S 14.55 mg/L (Normal) Range: 3.30-19.40 0-Nhp-198330:08 urine immunofixation (95964) Comments: PATIENT NOT FASTINGPERFORMED BY: Chance (app) [facility] [id number] Information: SRC:UR [id number] DEEPALI Interpretation:U IFEGL (Normal) Comments: 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 3-Kku-059576:30 serum immunofixation (19663) Comments: PATIENT WAS FASTINGPERFORMED BY: [employer]70 [facility] [id number] Immunoglobulin M, Qn, Serum 99 mg/dL (Normal) Range: 40-230 Immunoglobulin A, Qn, Serum 107 mg/dL (Normal) Range: 91-414 Immunoglobulin G, Qn, Serum 814 mg/dL (Normal) Range: 700-1600 Immunofixation Result, Serum IFEGL (Normal) Comments: Immunofixation shows IgG monoclonal protein with lambda light chainspecificity. 9-Nov-38723:49 CBC W/Diff, Automated Comments: [facility] [address] [place], [address] Absolute Lymph 0.99 {X10_3/ul} (Normal) [...] K/mm3 (Normal) Range: 4.4-11.0 :49 Ferritin Comments: [facility] [address] [place], [address] FERRITIN 80 ng/mL (Normal) Range: 8-252 :49 Hemoglobin A1c Comments: [facility] [address] [place] [place], [address] HGB A1C 6.4 % (Abnormal) Range: 4.2-6.3 :49 Iron Comments: [facility] [address] [place], [address] IRON 43 ug/dL (Abnormal) Range: 50-170 :49 Iron Binding Capacity,Total Comments: [facility] [address] [place], [address] TIBC 336 ug/dL (Normal) Range: 250-450 :49 Protein Electro.Ur-Random Comments: [facility] (refer to report for specific site)refer to report for address and phone number M-SPIKE,U Test not performed (Normal) GAMMA GLOB,U Test not performed (Normal) Comments: Test not performed BETA GLOB,U Test not performed (Normal) Comments: Test not performed LARBD-2-MICW,U Test not performed (Normal) Comments: Test not performed HRDLL-8-XLRK,U Test not performed (Normal) Comments: Test not [...] electrophoresis scan will follow via computer,mail, or cryptozoologist delivery. NOTE: Comment (Normal) Comments: The SPE [...] electrophoresis scan will follow via computer,mail, or cryptozoologist delivery. A/G RATIO 1.5 (Normal) Range: 0.7-2.0 [...] 6.0-8.5 :49 Thyroid Stim Hormone (TSH) Comments: [facility] [address] [place], [address] TSH 4.43 {uIU/mL} (Abnormal) Range: 0.358-3.74 :49 Vitamin B12 431 pg/mL (Normal) Comments: [facility] [address] [place], [address] Range: 211-911 Comments: ADDENDA: has apt today :58 AFP, Tumor Marker Comments: Is Patient ? [facility] (refer to report for specific site)refer to report for address and phone number AFP TUMOR 2253 4.9 ng/mL (Normal) Range: 0.0-8.3 Comments: Patricia ECLIA methodologyPerformed at: - [facility] [id number] Director: Constanitne Christianson PhD, Phone: [phone] :[phone] CBC W/Diff, Automated Comments: [facility] [address] [place], [address] Absolute Lymph 1.46 {X10_3/ul} (Normal) [...] 4.2-5.4 WBC 7.3 K/mm3 (Normal) Range: 4.4-11.0 38-Tqr-83405:58 Comprehensive Metabolic Profil Comments: [facility] [address] [place], [place], [address] GAP 7 (Normal) Range: 5-15 CO2 28.0 [...] per A.D.A. criteria. :58 Lipid Profile Comments: [facility] [address] [place], [place], [id number] ; non-emergent and has apth this week [...] :58 Vitamin B12 278 pg/mL (Normal) Comments: [facility] [address]rlxgm[address] [place], [place], [address] Range: 211-911 :58 Vitamin D,25 Hydroxy Comments: [facility] [address]xi[address] [place], [place], [address] Vitamin D 25-OH 38.4 ng/mL (Normal) Comments: Vitamin D 25(OH) Status Range Deficiency <20 ng/mL (50nmol/L) Insuffciency 20 - 30 ng/mL (50 - 75 nmol/L) Sufficiency 30 - 100 ng/mL (75 - 250 nmol/L) Toxicity >100 ng/mL (>250 nmol/L) 03-Qha-093805:07 HgA1C , Office (35542) HgA1C , Office 6.5 % (Normal) Range: 4.6 - 7.1 :43 AFP, Tumor Marker Comments: Is Patient ? NTest performed at:[facility] [address]ushktuzs1253 [facility] [place] [address] AFP TUMOR 2253 4.8 ng/mL (Normal) Range: 0.0-8.3 Comments: Glimpse ECLIA methodologyPerformed at: [facility] [address] [id number] Director: Arnold Jefferson PhD, Phone: [phone] :[phone] CBC W/Diff, Automated Comments: Test performed at:[facility] [address] [place] [address] Absolute Lymph 1.16 {X10_3/ul} (Normal) [...] :43 Comprehensive Metabolic Profil Comments: Test performed at:[facility] Lcaxhwrmkw4864 [facility] [place] [address] GAP 11 (Normal) Range: 5-15 [...] criteria. :43 Lipid Profile Comments: Test performed at:[facility] Kwttfaqrpq5828 [facility] [address]ary[address]nie [place], [place] [address] VLDL 61 mg/dL (Abnormal) Range: 5-40 LDL [...] :43 Microalb:Creat Ratio,Random UR Comments: Test performed at:[facility] [address] [place] [address] MALB:CREAT 15.9 {mg/g_CRE} (Normal) MICROALBUMIN,UR 19.2 mg/L (Normal) UR CREAT 120.3 mg/dL (Normal) :43 Thyroid Stim Hormone (TSH) Comments: Test performed at:[facility] [address] [place] [address] TSH 2.19 {uIU/mL} (Normal) Range: 0.358-3.74 :43 Vitamin B12 261 pg/mL (Normal) Comments: Test performed at:[facility] [address] [place] [address] Range: 211-911 Comments: ADDENDA: nl and pt has apt tomorrow :43 Vitamin D,25 Hydroxy Comments: Test performed at:[facility] [address] [place] [address] Vitamin D 25-OH 30.9 ng/mL (Normal) Comments: Vitamin D 25(OH) Status Range Deficiency <20 ng/mL (50nmol/L) Insuffciency 20 - 30 ng/mL (50 - 75 nmol/L) Sufficiency 30 - 100 ng/mL (75 - 250 nmol/L) Toxicity >100 ng/mL (>250 nmol/L) :38 HgA1C , Office (31043) HgA1C , Office 6.7 % (Normal) Range: 4.6 - 7.1 :56 AFP, Tumor Marker Comments: Is Patient ? NTest performed at:[facility] Yqkebyuyyb9304 [facility]. [place], [place] [id number] ; appt 02/15 AFP TUMOR 2253 4.8 ng/mL (Normal) Range: 0.0-8.3 Comments: Glimpse ECLIA methodologyPerformed at: [facility] [address] [id number] Director: Arnold Jefferson PhD, Phone: [phone] CBC W/Diff, Automated Comments: Test performed at:[facility] Tnppxyzzoq6952 [facility] [place] [address] Absolute Lymph 2.37 {X10_3/ul} (Normal) [...] 4.4-11.0 :56 Lipid Profile Comments: Test performed at:[facility] [address] [place] [address] VLDL 26 mg/dL (Normal) Range: [...] :56 Partial Thromboplast Time Comments: Test performed at:[facility] Ajldjgersi0252 [facility] [place] [address] PTT 30.1 s (Normal) Range: 24.1-36.2 :56 Prothrombin Time w/INR Comments: Test performed at:[facility] [address] [place] [address] INR 1.0 (Normal) PROTIME 12.8 s (Normal) Range: 11.7-14.9 :56 Thyroid Stim Hormone (TSH) Comments: Test performed at:[facility] [address] [place] [address] TSH 5.17 {uIU/mL} (Abnormal) Range: 0.358-3.74 :56 Vitamin B12 293 pg/mL (Normal) Comments: Test performed at:[facility] [address] [place] [address] Range: 211-911 :56 Vitamin D,25 Hydroxy Comments: Test performed at:[facility] Ilcygetbam[address]95 [facility] [address] [place] [address] Vitamin D 25-OH 32.0 ng/mL (Normal) Comments: Vitamin D 25(OH) Status Range Deficiency <20 ng/mL (50nmol/L) Insuffciency 20 - 30 ng/mL (50 - 75 nmol/L) Sufficiency 30 - 100 ng/mL (75 - 250 nmol/L) Toxicity >100 ng/mL (>250 nmol/L) :07 HgA1C , Office (06045) HgA1C , Office 6.3 % (Normal) Range: 4.6 - 7.1 :33 CBC W/Diff, Automated Comments: Test performed at:[facility] [address] [place] [id number] ; non- emergent till apt Absolute Lymph [...] :33 Comprehensive Metabolic Profil Comments: Test performed at:[facility] Qkozqbveug0518 [facility]. [place], [place] [id number] GAP 4 (Abnormal) Range: 5-15 CO2 28.0 [...] criteria. :33 Lipid Profile Comments: Test performed at:[facility] Xiqiavsydu5964 [facility] [address]. [place], [place] [id number] VLDL 29 mg/dL (Normal) Range: 5-40 LDL [...] B12 394 pg/mL (Normal) Comments: Test performed at:[facility] Pgpgzdyakj6281 [facility] [place] [address] Range: 211-911 :33 Vitamin D,25 Hydroxy Comments: Test performed at:[facility] Rapxumebmy4920 [facility] [place] [address] Vitamin D 25-OH 39.6 ng/mL (Normal) Comments: Vitamin D 25(OH) Status Range Deficiency <20 ng/mL (50nmol/L) Insuffciency 20 - 30 ng/mL (50 - 75 nmol/L) Sufficiency 30 - 100 ng/mL (75 - 250 nmol/L) Toxicity >100 ng/mL (>250 nmol/L) 68-Qbr-671686:10 HgA1C , Office (11921) HgA1C , Office 6.4 % (Normal) Range: [...] CHOL 167 mg/dL (Normal) Comments: <200 mg/dL Fdfvzxrow927-303 mg/dL Borderline>240 mg/dL High Risk TRIG 200 mg/dL (Abnormal) Range: 0-199 Comments: Serum Triglycerides Reference IntervalNormal <150 mg/dLBorderline high 150 - 199 mg/dLHigh 200 - 499 mg/ dLVery High > or = 500 mg/dL :42 TIBC 275 ug/dL (Normal) Range: 250-450 :42 TSH 2.12 {uIU/mL} (Normal) Range: 0.358-3.74 58-Uhr-385754:10 FERRITIN (65943) Comments: PATIENT NOT FASTINGPERFORMED BY: Wisecam[address] [facility] [id number] Ferritin, Serum 133 ng/mL (Normal) Range: 15-150 49-Tqp-744259:10 IRON BINDING CAPACITY Comments: PATIENT NOT FASTINGPERFORMED BY: Huan XiongSaint Barnabas Behavioral Health CenterFzfnff5096 [facility] [id number] Information: [id number] (TIBC) (18030) Iron Saturation 20 % (Normal) Range: 15-55 Iron, Serum 62 ug/dL (Normal) Range: 35-155 UIBC 241 ug/dL (Normal) Range: 150-375 Iron Bind.Cap.(TIBC) 303 ug/dL (Normal) Range: 250-450 31-Nga-441440:10 VITAMIN B-12 (CYANOCOBALAMIN) Comments: PATIENT NOT FASTINGPERFORMED BY: [employer] Yvygnu8260 [facility] [id number] (69077) Vitamin B12 421 pg/mL (Normal) Range: 211-946 58-Ckb-578441:10 TSH (83172) Comments: PATIENT NOT FASTINGPERFORMED BY: LabCoSaint Barnabas Behavioral Health CenterQkezsg8003 [facility] [id number] TSH 1.150 {uIU/mL} (Normal) Range: 0.450-4.500 30-Lxb-354692:37 HgA1C , Office (70578) HgA1C , Office 6.1 % (Normal) Range: 4.6 - 7.1 1-Hga-949901:10 CBC with manual diff Comments: PATIENT WAS FASTINGPERFORMED BY: Rev[employer] Padbin5739 [facility] [id number] Information: [id number] (36025) Immature Grans (Abs) 0.0 {x10E3/uL} (Normal) Range: [...] 3.77-5.28 WBC 8.2 {x10E3/uL} (Normal) Range: 3.4-10.8 1-Hbj-763531:10 Metabolic Panel, Comprehensive Comments: PATIENT WAS FASTINGPERFORMED BY: LabCoSaint Barnabas Behavioral Health CenterKlxdso7648 [facility] [id number] (11106) ALT (SGPT) 11 [iU]/L (Normal) Range: 0-32 [...] Glucose, Serum 129 mg/dL (Abnormal) Range: 65-99 5-Gwq-385320:10 Lipid Panel (96157) Comments: PATIENT WAS FASTINGPERFORMED BY: Huan XiongSaint Barnabas Behavioral Health CenterWefuta9942 [facility] [id number] LDL/HDL Ratio 1.4 {ratio_units} (Normal) Range: 0.0-3.2 [...] METABOLIC PANEL, Comments: PATIENT NOT FASTINGPERFORMED BY: Huan XiongSaint Barnabas Behavioral Health CenterRdlwvb3959 [facility] [id number] Information: [id number] COMPREHENSIVE (90312) ALT (SGPT) 15 [iU]/L (Normal) Range: 0-32 [...] 133 mg/dL (Abnormal) Range: 65-99 :14 TSH (59821) Comments: PATIENT NOT FASTINGPERFORMED BY: LabCoSaint Barnabas Behavioral Health CenterImivrl2541 [facility] [id number] TSH 0.182 {uIU/mL} (Abnormal) Range: 0.450-4.500 :40 [...] CHOL 99 mg/dL (Normal) Comments: <200 mg/dL Bquuwxyzj034-279 mg/dL Borderline>240 mg/dL High Risk :40 MIACRE [...] CHOL 148 mg/dL (Normal) Comments: <200 mg/dL Kwxbethyp720-115 mg/dL Borderline>240 mg/dL High Risk HDL 46 [...] ng/mL (>250 nmol/L) :27 HgA1C , Office (85196) HgA1C , Office 6.7 % (Normal) Range: 4.6 - 7.1 :17 METABOLIC PANEL, COMPREHENSIVE Comments: PATIENT WAS FASTINGPERFORMED BY: [facility] Qrrlhb0992 [facility] [id number] (54980) ALT (SGPT) 16 [iU]/L (Normal) Range: 0-32 [...] mg/dL (Abnormal) Range: 65-99 :17 LIPID PANEL (99132) Comments: PATIENT WAS FASTINGPERFORMED BY: Wisecam6370 [facility] [id number] LDL/HDL Ratio 2.0 {ratio_units} (Normal) Range: 0.0-3.2 [...] MANUAL DIFF Comments: PATIENT WAS FASTINGPERFORMED BY: Wordy6370 [facility] [id number] Information: [id number] (78204) Immature Grans (Abs) 0.0 {x10E3/uL} (Normal) Range: [...] B-12 (CYANOCOBALAMIN) Comments: PATIENT WAS FASTINGPERFORMED BY: [employer] [facility] [id number] (88282) Vitamin B12 696 pg/mL (Normal) Range: 211-946 :17 Vitamin D Hydroxy (12626) Comments: PATIENT WAS FASTINGPERFORMED BY: [employer] [facility] [id number] Vitamin D, 25-Hydroxy 29.3 ng/mL (Abnormal) Range: 30.0-100.0 Comments: Vitamin D deficiency has been defined by the [place] and an Endocrine Society practice guideline as alevel of serum 25-OH vitamin D less than 20 ng/mL (1,2).The Endocrine Society went on to further define vitamin Dinsufficiency as a level between 21 and 29 ng/mL (2).1. IOM ([place]). 2010. Dietary reference intakes for calcium and D. [place]: The National Academies Press.2. Rachel MF, Yael MARLEY, Dunia HERRERA, et al. Evaluation, treatment, and prevention of vitamin D deficiency: an Endocrine Society clinical practice guideline. JCEM. 2010; 96(7):1911-30. 26-Zby-175182:29 HgA1C , Office (07570) HgA1C , Office 7.0 % (Normal) Range: 4.6 - 7.1 3-Usm-991927:14 B12 794 pg/mL (Normal) Range: 211-911 Comments: Effective 201227-Dec-20124-Skt-824136:14 VITD 37.5 ng/mL (Normal) Comments: Vitamin D 25(OH) Status RangeDeficiency <20 ng/mL (50nmol/L)Insufficiency 20 - 30 ng/mL (50 - 75 nmol/L)Sufficiency 30 - 100 ng/mL (75 - 250 nm ol/L)Toxicity >100 ng/mL (250 nmol/L)Effective 201201-Dec-20121-Zlz-644601:13 CHEST PA AND LATERAL Radiology Report See [...] Tate D.O.December 01, 2012 at 12:40:54 PM [id number] Signed DS/DS If you are the referring physician and would like to consult with theradiologist who provided this i nterpretation, please contact Eulalio Tate D.O. at [phone]. If this radiologist is unavailable, you will bedirected to another radiologist to assist. If you are a patient with a question regarding t his report, pleasecontactyour referring physician directly. Professional Interpretation Provided By: [employer] Phone , These documents contain legally protected [...] 12/01/12 1244 Sign by: Mack Peterson DO 10-Vrs-575887:20 Upper Respiratory Culture Comments: PATIENT NOT FASTINGPERFORMED BY: [facility] Jrxvhq7238 [facility] [id number] Information: SRC: THROAT Result 1 RRF (Normal) Comments: Routine respiratory alton Upper Respiratory Culture Final report (Normal) 28-Crq-787759:06 Rapid Strep Test, Office (96058) Rapid Strep Test, Office Negative (Normal) 07-Iuu-535759:32 BILAT SCRN DIGITAL & CAD Radiology Report [...] Wayne M.D.November 18, 2012 at 12:51:57 PM [id number] Signed GP/GP If you are the referring physician and would like to consult with theradiologist who provid ed this interpretation, please contact Lee Claudio at [phone]. If this radiologist is unavailable, youwill be directed to another radiologist to assist. If you are a patient with a ques tion regarding this report, pleasecontactyour referring physician directly. Professional Interpretation Provided By: [employer] Phone , These documents contain legally pr [...] 11/18/12 1254 Sign by: Teo Wayne MD 4-Duu-341636:24 URINE RANI CULTURE-IDENTIFICATN Comments: PATIENT NOT FASTINGPERFORMED BY: LabCoSaint Barnabas Behavioral Health CenterHwzxbk2949 [facility] [id number] Information: [id number] (82280) Result 1 MUG (Normal) Comments: Mixed urogenital flora10,000-25,000 colony forming units per mL Urine Final report (Normal) Culture,Comprehensive 09-Uqt-029820:50 METABOLIC PANEL, Comments: PATIENT NOT FASTINGPERFORMED BY: CB [facility] Tlpwsb7465 [facility] [id number] Information: ADD [id number] AND DRAW FEE 99 6660 COMPREHENSIVE (44412) ALT (SGPT) 14 [iU]/L (Normal) Range: 0-32 [...] Glucose, Serum 109 mg/dL (Abnormal) Range: 65-99 8-Bcq-711597:42 HgA1C , Office (85986) HgA1C , Office 6.3 % (Normal) Range: 4.6 - 7.1 :04 Microscopic Examination Comments: PATIENT NOT FASTINGPERFORMED BY: [facility] Xzxxtd1051 [address] RoadDublin [place] [id number] Bacteria Few (Normal) Mucus Threads Present (Normal) Cast Type Hyaline casts (Normal) Casts Present {/lpf} (Abnormal) Epithelial Cells (non renal) 0-10 {/hpf} (Normal) Range: 0 - 10 RBC 0-3 {/hpf} (Normal) Range: 0 - 3 WBC 6-10 {/hpf} (Abnormal) Range: 0 - 5 :04 VITAMIN B-12 (CYANOCOBALAMIN) Comments: PATIENT NOT FASTINGPERFORMED BY: CB [facility] Xghiqa[address] [facility] [place] [id number] (29357) Vitamin B12 1228 pg/mL (Abnormal) Range: 211-946 :04 Vitamin D Hydroxy (67726) Comments: PATIENT NOT FASTINGPERFORMED BY: CB [facility] Itavew[address] [facility] [id number] Vitamin D, 25-Hydroxy 21.9 ng/mL (Abnormal) Range: 30.0-100.0 Comments: Vitamin D deficiency has been defined by the [place] [place] [place] and an Endocrine Society practice guideline as alevel of serum 25-OH vitamin D less than 20 ng/mL (1,2).The Endocrine Society went on to further define vitamin Dinsufficiency as a level between 21 and 29 ng/mL (2).1. IOM ([place]). 2010. Dietary reference intakes for calcium and D. [place]: The National Academies Press.2. Rachel MF, Yael NC, Dunia HERRERA, et al. Evaluation, treatment, and prevention of vitamin D deficiency: an Endocrine Society clinical practice guideline. JCEM. 2010; 96(7):1911-30. :04 URINALYSIS, W/ MICRO (02413) Comments: PATIENT NOT FASTINGPERFORMED BY: CB [facility] Exylsi[address] [facility] [place] [id number] Microscopic Examination See below: (Normal) Nitrite, Urine Negative (Normal) Bilirubin Negative (Normal) Urobilinogen,Semi-Qn 0.2 mg/dL (Normal) Range: 0.0-1.9 Occult Blood Negative (Normal) Ketones Negative (Normal) Glucose Negative (Normal) Protein Negative (Normal) WBC Esterase 1+ (Abnormal) Appearance Clear (Normal) Urine-Color Yellow (Normal) pH 5.5 (Normal) Range: 5.0-7.5 Specific Horatio 1.024 (Normal) Range: 1.005-1.030 42-Cmu-37161:04 CBC WITH MANUAL DIFF Comments: PATIENT NOT FASTINGPERFORMED BY: LabCoSaint Barnabas Behavioral Health CenterGeszxq6567 [facility] [id number] Information: [id number] (10241) Immature Grans (Abs) 0.0 {x10E3/uL} (Normal) Range: [...] PANEL, COMPREHENSIVE Comments: PATIENT NOT FASTINGPERFORMED BY: [employer] [facility] [id number] (28082) ALT (SGPT) 13 [iU]/L (Normal) Range: 0-32 [...] mg/dL (Abnormal) Range: 65-99 :04 LIPID PANEL (60094) Comments: PATIENT NOT FASTINGPERFORMED BY: Wisecam6370 [facility] [id number] LDL Cholesterol Calc 103 mg/dL (Abnormal) Range: [...] pg/mL (Normal) Range: 211-946 Comments: Performed at: [address] Director: Arnold Jefferson PhD, Phone: [phone] :[phone] CMP GAP 9 (Normal) Range: 5-15 [...] 250 nmol/L) Toxicity >100 ng/mL (250 nmol/L)Effective 201215-Aug-201215-Qbg-056710:20 Metabolic Panel, Basic Comments: PATIENT NOT FASTINGPERFORMED BY: [facility] Qmlkli4126 [facility] [id number] Information: [id number] (26132) Calcium, Serum 10.2 mg/dL (Normal) Range: 8.6-10.2 [...] Glucose, Serum 99 mg/dL (Normal) Range: 65-99 9-Epl-327622:24 Microscopic Examination Comments: PATIENT NOT FASTINGPERFORMED BY: [facility] Hthqjk3589 [address] Road[address] [place] [id number] Bacteria Few (Normal) Mucus Threads Present (Normal) Epithelial Cells (non renal) 0-10 {/hpf} (Normal) Range: 0 - 10 RBC 0-3 {/hpf} (Normal) Range: 0 - 3 WBC 6-10 {/hpf} (Abnormal) Range: 0 - 5 :24 Vitamin D Hydroxy (83880) Comments: PATIENT NOT FASTINGPERFORMED BY: [facility] Vupujn5945 [address] RoadDublin [place] [id number] Vitamin D, 25-Hydroxy 21.7 ng/mL (Abnormal) Range: 30.0-100.0 Comments: Vitamin D deficiency has been defined by the [place] [place] and an Endocrine Society practice guideline as alevel of serum 25-OH vitamin D less than 20 ng/mL (1,2).The Endocrine Society went on to further define vitamin Dinsufficiency as a level between 21 and 29 ng/mL (2).1. IOM ([place]). 2010. Dietary reference intakes for calcium and D. [place]: The National Academies Press.2. Rachel MF, Yael NC, Dunia HERRERA, et al. Evaluation, treatment, and prevention of vitamin D deficiency: an Endocrine Society clinical practice guideline. JCEM. 2010; 96(7):1911-30. 3-Eis-647700:24 VITAMIN B-12 (CYANOCOBALAMIN) Comments: PATIENT NOT FASTINGPERFORMED BY: [facility] Fvnoho9149 [address] RoadDublin [place] [id number] (85043) Vitamin B12 431 pg/mL (Normal) Range: 211-946 :24 URINALYSIS, W/ MICRO (36034) Comments: PATIENT NOT FASTINGPERFORMED BY: CB [facility] Ltupfh0340 [address]er RoadDublin [place] [id number] Microscopic Examination MICRON (Normal) Comments: Microscopic follows if indicated. Microscopic Examination See below: (Normal) Nitrite, Urine Negative (Normal) Urobilinogen,Semi-Qn 0.2 mg/dL (Normal) Range: 0.0-1.9 Bilirubin Negative (Normal) Ketones Negative (Normal) Occult Blood Negative (Normal) Glucose Negative (Normal) Protein Negative (Normal) WBC Esterase Negative (Normal) Appearance Clear (Normal) pH 6.5 (Normal) Range: 5.0-7.5 Urine-Color Yellow (Normal) Specific Horatio 1.022 (Normal) Range: 1.005-1.030 1-Dja-070281:24 CBC WITH MANUAL DIFF Comments: PATIENT NOT FASTINGPERFORMED BY: LabCoSaint Barnabas [facility] Health CenterSayrsf6972 [facility] [id number] Information: [id number] (26555) Immature Grans (Abs) 0.0 {x10E3/uL} (Normal) Range: [...] 3.77-5.28 WBC 7.9 {x10E3/uL} (Normal) Range: 4.0-10.5 9-Stw-967007:24 METABOLIC PANEL, COMPREHENSIVE Comments: PATIENT NOT FASTINGPERFORMED BY: [employer] Axniet8739 [facility] [id number] (82024) ALT (SGPT) 16 [iU]/L (Normal) Range: 0-32 [...] Glucose, Serum 107 mg/dL (Abnormal) Range: 65-99 8-Bnj-864941:24 TSH (97572) Comments: PATIENT NOT FASTINGPERFORMED BY: [employer] Vxvjur2646 [facility] [id number] TSH 2.000 {uIU/mL} Range: 0.450-4.500 (Normal) CCP Antibodies IgG/IgA 1 {units} (Normal) Comments: PATIENT NOT FASTINGPERFORMED BY: [place] 6985870 [facility] [id number] BY: [address] [id number] :39 Range: 0-19 Comments: Negative <20 Weak positive 20 - 39 Moderate positive 40 - 59 Strong positive >59 :39 Systemic Lupus Profile Comments: PATIENT NOT FASTINGPERFORMED BY: LabBrenda [place]ille 9745870 [facility] [id number] BY: [address] [id number] Information: [id number] (41264) Anti-DNA (DS) Ab Qn <1 {IU/mL} (Normal) Range: 0-9 Comments: Negative <5 Equivocal 5 - 9 Positive >9 Sjogren's Anti-SS-B 0.5 {AI} (Normal) Range: 0.0-0.9 Sjogren's Anti-SS-A 0.3 {AI} (Normal) Range: 0.0-0.9 Antichromatin Antibodies <0.2 {AI} (Normal) Range: 0.0-0.9 RA Latex Turbid. 8.5 {IU/mL} (Normal) Range: 0.0-13.9 [place] Antibodies <0.2 {AI} (Normal) Range: 0.0-0.9 [place] Antibodies <0.2 {AI} (Normal) Range: 0.0-0.9 :27 HgA1C , Office (02456) HgA1C , Office 6.2 % (Normal) Range: 4.6 - 7.1 :27 Blood Glucose , Office (07255) Blood Glucose , Office 108 (Normal) :45 [...] D deficiency has been defined by the [place] and an Endocrine Society practice guideline as alevel of serum 25-OH vitamin D less than 20 ng/mL (1,2).The Endocrine Society went on to further define vitamin Dinsufficiency as a level between 21 and 29 ng/mL (2).1. IOM ([place]). 2010. Dietary reference intakes for calcium and D. [place]: The National Academies Press.2. Rachel MF, Yael MARLEY, Dunia HERRERA, et al. Evaluation, treatment, and prevention of vitamin D deficiency: an Endocrine Society clinical practice guideline. JCEM. 2010; 96(7): 1911-30.Performed at: [facility] [address] [id number] Director: Arnold Jefferson PhD, Phone: [phone] 04-Fui-034045:59 Blood Glucose , Office (72064) Blood Glucose , Office 131 (Normal) 98-Mmu-983944:58 HgA1C , Office (03043) HgA1C , Office 6.8 % (Normal) Range: 4.6 - 7.1 33-Mop-064398:12 CBCMD RBCM NORM C+C {NORMAL} (Normal) PE [...] 4.2-5.4 WBC 7.0 K/mm3 (Normal) Range: 4.4-11.0 01-Itn-050247:12 CMP GAP 10 (Normal) Range: 5-15 CO2 [...] mg/dL suggests DIABETES MELLITUS per A.D.A. criteria. 15-Kyg-371822:12 LIPID LDL 104 mg/dL (Normal) Range: 0-130 [...] 200-240 mg/dL Borderline >240 mg/dL High Risk 72-Qwc-236666:12 TSH 2.08 {uIU/mL} (Normal) Range: 0.358-3.74 77-Nic-584810:12 VITD 34.7 ng/mL (Normal) Range: 30.0-100.0 Comments: Vitamin D deficiency has been defined by the [place] of[facility] and an Endocrine Society practice guideline as alevel of serum 25-OH vitamin D less than 20 ng/mL (1,2).The Endocrine Society went on to further define vitamin Dinsufficiency as a level between 21 and 29 ng/mL (2).1. IOM ([place]). 2010. Dietary reference intakes for calcium and D. [place]: The National Academies Press.2. Rachel MF, Yael MARLEY, Dunia HERRERA, et al. Evaluation, treatment, and prevention of vitamin D deficiency: an Endocrine Society clinical practice guideline. JCEM. 2010; 96(7): 1911-30.Performed at: - [address] [id number] Director: Tona Emmanuel MD, Phone: [phone] 69-Dzg-479505:15 HgA1C , Office (94828) HgA1C , Office 5.8 % (Normal) Range: 4.6 - 7.1 24-Lmx-993397:15 Blood Glucose , Office (71713) Blood Glucose , Office 113 (Normal) :30 [...] D deficiency has been defined by the [place] of[place] and an Endocrine Society practice guideline as alevel of serum 25-OH vitamin D less than 20 ng/mL (1,2).The Endocrine Society went on to further define vitamin Dinsufficiency as a level between 21 and 29 ng/mL (2).1. IOM ([place]). 2010. Dietary reference intakes for calcium and D. [place]: The National Academies Press.2. Rachel MF, Yael NC, Dunia HERRERA, et al. Evaluation, treatment, and prevention of vitamin D deficiency: an Endocrine Society clinical practice guideline. JCEM. 2010; 96(7): 1911-30.Performed at: [address] [id number] Director: Tona Emmanuel MD, Phone: [phone] 00-Skd-471744:02 CTA NECK W/WO CONTRAST Radiology Report See [...] ologist regarding this report, please call our [id number] line @ Dictated on 10/08/[address],Davidranscribed on 10/09/11 0856 by ITS IMPORTSign by Juana Wayne MD on 10/09/11 0857 Sign by: Teo Wayne MD 65-Avh-520105:00 BILAT SCRN DIGITAL & CAD Radiology Report [...] radiologist regarding this report, please call our 86P2njnxrbo line @ Dictated on 09/18/11 1040 by Ori clifton MD,Davidranscribed on 09/20/11 0901 by ITS IMPORTSign by Teo Wayne MD on 09/20/11 0902 Sign by: Teo Wayne MD 08-Fxw-43269:59 DEXA BONE DENSITY STUDY (HP) Radiology Report [...] regarding this re port, please call our 21G1pomulek line @ Dictated on 09/18/11 1002 by David Wayne MDranscribed on 09/19/11 1416 by ITS IMPORTSign by Teo Wayne MD on 09/19/11 1417 Sign by: Teo Wayne MD 60-Ijq-779346:17 HgA1C , Office (21841) HgA1C , Office 5.9 % (Normal) Range: 4.6 - 7.1 33-Lvy-801805:17 Blood Glucose , Office (89257) Blood Glucose , Office 77 (Normal) :44 [...] >240 mg/dL High Risk :44 VIT D,25 31261 22.3 ng/mL (Abnormal) Range: 30.0-100.0 Comments: Vitamin D deficiency has been defined by the [place] of[place]icine and an Endocrine Society practice guideline as alevel of serum 25-OH vitamin D less than 20 ng/mL (1,2).The Endocrine Society went on to further define vitamin Dinsufficiency as a level between 21 and 29 ng/mL (2).1. IOM ([place]). 2011. Dietary reference intakes for calcium and D. [place]: The National Academies Press.2. Rachel MF, Yael NC, Dunia HERRERA, et al. Evaluation, treatment, and prevention of vitamin D deficiency: an Endocrine Society clinical practice guideline. JCEM. 2010; 96(7): 1911-30.Performed at: - LabCo[address] [id number] Director: Tona Emmanuel MD, Phone: [phone] HgA1C , Office (89801) HgA1C , Office 6.6 % (Normal) Range: 4.6 - 7.1 :34 Blood Glucose , Office (72042) Blood Glucose , Office 116 (Normal) :50 [...] Range: 4.4-11.0 30-May-20118:50 COMP METABOLIC Comments: appt 05742 GAP 10 (Normal) Range: 5-15 CO2 26.0 [...] {uIU/mL} (Normal) Range: 0.358-3.74 :50 VIT D,25 68932 41.3 ng/mL (Normal) Range: 32.0-100.0 Comments: Effective June 18, 2011 Vitamin D, 25-Hydroxy reference intervals will be changing to 30-100. .Recent studies consider the lower li lalo of 32.0 ng/mL to be athreshold for optimal health.Pepito ANNE. J Nutr. 2004;135(2):317-22.Performed at: - [facility] [id number] Director: Tona Emmanuel MD, Phone: [phone] :50 VITAMIN B12 806 pg/mL (Normal) Range: [...] Panel (14) Comments: PATIENT WAS FASTINGPERFORMED BY: [employer]6370 [facility] [id number] ALT (SGPT) 40 [iU]/L (Normal) Range: 0-40 [...] With LDL/HDL Comments: PATIENT WAS FASTINGPERFORMED BY: [employer]70 [facility] [id number] Ratio LDL Cholesterol Calc 74 mg/dL (Normal) [...] 0.192 {uIU/mL} Comments: PATIENT WAS FASTINGPERFORMED BY: zervedlin6370 [facility] [id number] 09 (Abnormal) Range: 0.450-4.500 : Vitamin B12 417 pg/mL (Normal) Comments: PATIENT WAS FASTINGPERFORMED BY: zervedlin6370 [facility] [id number] 09 Range: 211-946 79-Jqz-905269:22 UNILAT LT DIAG DIGITAL & CAD Radiology [...] {uIU/mL} (Abnormal) Range: 0.358-3.74 :58 VIT D,25 12578 22.0 ng/mL (Abnormal) Comments: appt 10/24/10 Range: 32.0-100.0 Comments: Recent studies consider the lower limit of 32.0 ng/mL to tammy threshold for optimal health.Pepito ANNE. J Nutr. 2004;135(2):317-22.Performed at: - [place] [address]Lab Director: Tona Emmanuel MD, Phone: [phone] :58 VITAMIN B12 285 pg/mL (Normal) Range: 254-1320 Comments: There is a low frequency possibility that high titers ofintrinsic blocking antibodies may not be completely inactivated during the reaction pretreatment stepof this testing method. If test results are i n conflictwith the clinical diagnosis, patient should be testedfor the presence of intrinsic factor blocking antibodies. 4-Lhq-900347:42 Thin prep Pap Comments: Source.............Cervical;EndocervicalNo. of containers..01 CYTYC Thin Prep VialPATIENT NOT FASTINGPERFORMED BY: [facility] [address] [id number] Information: [id number] ([id number]) Note: PAPSMR (Normal) Comments: The Pap smear [...] for malignant neoplasm of the cervixManikki Montes Assortment Planner (ASCP) 30-Lui-657355:26 BREAST UNILATERAL Radiology Report See Note (Normal) [...] Category 3: Probably Benign Finding - Initial Oqegg-LixymuoyIhzgxx-de Suggested. A letter regarding these results will be sent tothepatient by the facility within 30 days. Approximately 10% of breast cancers are not detected by mammography. Anormal mammogram should not delay biopsy of a clinically suspiciousabnormality. Dictated on 08/24/10 1206 by ANTHONY PALOMARESTranscribed on 0 08/24/10 1351 by ITS IMPORTSign by ANTHONY PALOMARES on 08/24/10 1352 Sign by: ANTHONY PALOMARES 75-Hth-43405:43 BILAT SCRN DIGITAL & CAD Radiology Report [...] 08/18/10 1452 Sign by: ANTHONY PALOMARES MD 6-Nkk-330608:14 HgA1C , Office (35419) HgA1C , Office 6.5 % (Normal) Range: 4.6 - 7.1 7-Rnc-865830:14 Blood Glucose , Office (10026) Blood Glucose , Office 176 (Normal) 30-Jun-20107:30 [...] CREAT 161.2 mg/dL (Normal) : VIT D,25 36565 27.7 ng/mL Range: 32.0-100.0 30 (Abnormal) Comments: Recent studies consider the lower limit of 32.0 ng/mL to tammy threshold for optimal health.Pepito ANNE. J Nutr. 2004;135(2):317- 22.Performed at: [place] [id number] 296[facility] Director: Tona Emmanuel MD, Phone: [phone] : VITAMIN B12 449 pg/mL (Normal) Range: [...] {units} (Normal) Comments: PATIENT NOT FASTINGPERFORMED BY: [address] [id number] BY: [address] [id number] 0:44 Range: 0-19 Comments: Negative <20 Weak positive 20 - 39 Moderate positive 40 - 59 Strong positive >59 Comment: SPRCS (Normal) Comments: PATIENT NOT FASTINGPERFORMED BY: [address] [id number] BY: [address] [id number] 0:44 Comments: Effective April 25, 2009 order code 510521 CCP IgGAntibodies has been replaced due to an updated reagentversion 3.1. For this reason [facility] has provided youwith a new order code 302922 CCP Antibodies IgG/IgA. 11-Has-945240:44 Vitamin D Hydroxy Comments: PATIENT NOT FASTINGPERFORMED BY: [address] [id number] BY: [address] [id number] (60140) Vitamin D, 25-Hydroxy 30.9 ng/mL (Abnormal) Range: 32.0-100.0 Comments: Recent studies consider the lower limit of 32.0 ng/mL to be athreshold for optimal health.Pepito ANNE. J Nutr. 2004;135(2):317-22. 27-Yud-291145:44 SED RATE ERYTHROCYTE Comments: PATIENT NOT FASTINGPERFORMED BY: [address] [id number] BY: [address] [id number] (67925) Sedimentation Rate-Westergren 4 mm/h (Normal) Range: 0-30 16-Kgu-210244:44 C-REACTIVE PROTEIN Comments: PATIENT NOT FASTINGPERFORMED BY: [address] [id number] BY: [address] [id number] (77303) C-Reactive Protein, Quant 2.5 mg/L (Normal) Range: 0.0-4.9 64-Utp-062628:44 TSH (46365) Comments: PATIENT NOT FASTINGPERFORMED BY: [address] [id number] BY: [address] [id number] TSH 2.050 {uIU/mL} (Normal) Range: 0.450-4.500 87-Fks-478317:44 RHEUMATOID FACTOR-QUANT Comments: PATIENT NOT FASTINGPERFORMED BY: [address] RoadDublin [place] [id number] BY: [address] [id number] (35394) RA Latex Turbid. 8.4 {IU/mL} (Normal) Range: 0.0-13.9 60-Pbm-193287:44 MELI (ANTINUCLEAR ANTIBODY) Comments: PATIENT NOT FASTINGPERFORMED BY: LabB[place] [id number] [facility] [id number] BY: [address] [id number] (42763) MELI Direct Negative (Normal) 21-Zuv-474349:44 CBC WITH MANUAL DIFF Comments: PATIENT NOT FASTINGPERFORMED BY: LabBrenda [place] [id number] [facility] [id number] BY: [address] [id number] Inf ormation: ADD [id number] AND DRAW FEE [id number] (77722) Immature Grans (Abs) 0.0 {x10E3/uL} (Normal) Range: [...] 3.80-5.10 WBC 6.8 {x10E3/uL} (Normal) Range: 4.0-10.5 25-Rzd-732006:44 METABOLIC PANEL, Comments: PATIENT NOT FASTINGPERFORMED BY: CB [facility] Ftshtd6994 [facility] [id number] BY: BN [facility] [address] [id number] COMPREHENSIVE (01463) ALT (SGPT) 21 [iU]/L (Normal) Range: 0-40 [...] (Abnormal) Range: 65-99 :33 HgA1C , Office (50927) HgA1C , Office 6.8 % (Normal) Range: 4.6 - 7.1 :33 Blood Glucose , Office (94946) Blood Glucose , Office 135 (Normal) :22 [...] CHOL 157 mg/dL (Normal) Comments: <200 mg/dL Bhsowzpkw269-497 mg/dL Borderline>240 mg/dL High Risk :22 LIVER ALB 3.5 g/dL (Normal) Range: 3.4-5.0 ALK P 97 U/L (Normal) Range: 50-136 ALT 21 U/L (Normal) Range: 12-78 AST 16 U/L (Normal) Range: 15-37 D BILI 0.12 mg/dL (Normal) Range: 0.00-0.30 T BILI 0.40 mg/dL (Normal) Range: 0.00-1.00 T PROT 6.5 g/dL (Normal) Range: 6.4-8.2 :22 TSH 1.54 {uIU/mL} Range: 0.358-3.74 (Normal) :22 VIT D,25 38444 36.8 ng/mL (Normal) Range: 32.0-100.0 Comments: Recent studies consider the lower limit of 32.0 ng/mL to tammy threshold for optimal health.Pepito ANNE. J Nutr. 2004;135(2):317-22.Performed at: [address] [address]Lab Director: Tona Emmanuel MD, Phone: [phone] :[phone] VITAMIN B12 264 pg/mL (Normal) Range: 254-1320 Comments: There is a low frequency possibility that high titers ofintrinsic blocking antibodies may not be completelyinactivated during the reaction pretreatment stepof this testing method. If test results are in conflictwith the clinical diagnosis, patient should be testedfor the presence of intrinsic factor blocking antibodies. : Amylase, Serum 92 U/L (Normal) Comments: PERFORMED BY: [address] [id number] 34 Range: 31-124 :34 CBC With Differential/Platelet Comments: PERFORMED BY: [address] [id number] Baso (Absolute) 0.0 {x10E3/uL} (Normal) Range: 0.0-0.2 [...] 3.80-5.10 WBC 7.5 {x10E3/uL} (Normal) Range: 4.0-10.5 95-Xvd-385339:34 Comp. Metabolic Panel (14) Comments: PERFORMED BY: [facility]6370 [facility] [id number] ALT (SGPT) 18 [iU]/L (Normal) Range: 0-40 [...] Serum 57 U/L (Normal) Comments: PERFORMED BY: [facility] [id number] 13:34 Range: 0-59 03-Feb-20109:00 GALLBLADDER Radiology Report See Note (Normal) Comments: Exam Number: [id number] CLINICAL:Epigastric pain and bloating. ABDOMINAL ULTRASOUND TECHNIQUE:Transabdominal [...] hydronephrosis,etiology indeterminate. Reported By: KATHRYN MUNOZ M.D. 2-Uoh-273775:19 CBC WITH MANUAL DIFF Comments: PATIENT NOT FASTINGPERFORMED BY: Huan Xiong Hveilc[address] [facility] MichiganTapMyBackFirstHealth [id number] Information: [id number] (70991) Baso (Absolute) 0.1 {x10E3/uL} (Normal) Range: 0.0-0.2 [...] 3.80-5.10 WBC 9.9 {x10E3/uL} (Normal) Range: 4.0-10.5 0-Amq-081836:19 METABOLIC PANEL, COMPREHENSIVE Comments: PATIENT NOT FASTINGPERFORMED BY: [facility]CoSaint [facility]abas Behavior[facility] Health CenterUsmkzh1975 [facility] [id number] (62364) ALT (SGPT) 19 [iU]/L (Normal) Range: 0-40 [...] Glucose, Serum 83 mg/dL (Normal) Range: 65-99 8-Ugf-456534:20 KNEE,4 OR MORE VIEWS (MT) Radiology Report See Note (Normal) Comments: Exam Number: [id number] CLINICAL:This is a 69-year-old female patient with [...] By: TEO WAYNE :12 HgA1C , Office (11895) HgA1C , Office 7.1 % (Normal) Range: 4.6 - 7.1 :12 Blood Glucose , Office (67609) Blood Glucose , Office 129 (Normal) :45 [...] CHOL 155 mg/dL (Normal) Comments: <200 mg/dL Acsdtkanl362-013 mg/dL Borderline>240 mg/dL High Risk :45 VIT D,25 03631 42.5 ng/mL (Normal) Range: 32.0-100.0 Comments: Recent studies consider the lower limit of 32.0 ng/mL to tammy threshold for optimal health.Beyer . J Nutr. 2004;135(2):317-22.Performed at: [facility] [address] [id number] Director: Tona Emmanuel MD :53 LIPID HDL [...] CHOL 128 mg/dL (Normal) Comments: <200 mg/dL Mtlmspwof218-393 mg/dL Borderline>240 mg/dL High Risk :53 MICROALB:CRE UR MALB:CREAT 19.1 {mg/g_CRE} (Normal) MICROALBUMIN,UR 29.1 mg/L (Normal) UR CREAT 152.0 mg/dL (Normal) :53 TSH 0.93 {uIU/mL} (Normal) Range: 0.358-3.74 :53 VIT D, 36759 22.7 ng/mL (Abnormal) Range: 32.0-100.0 Comments: Recent studies consider the lower limit of 32.0 ng/mL to tammy threshold for optimal health.Beyer . J Nutr. 2004;135(2):317-22.Performed At: [facility] [address] [place] [id number] :53 VITAMIN B12 337 pg/mL (Normal) Range: 254-1320 :09 HgA1C , Office (20027) HgA1C , Office 7.1 % (Normal) Range: 4.6 - 7.1 :09 Blood Glucose , Office (29542) Blood Glucose , Office 108 (Normal) :33 KNEE,4 OR MORE VIEWS (MT) Radiology Report See Note (Normal) Comments: Exam Number: [id number] CLINICAL:Pain X-RAY EXAMINATION RIGHT KNEE TECHNIQUE:Three view(s) [...] Report See Note (Normal) Comments: Exam Number: [id number] CLINICAL:Pain X-RAY EXAMINATION: RIGHT TIBIA AND FIBULA [...] (MT) Radiology See Note Comments: Exam Number: [id number] CLINICAL:Pain X-RAY EXAMINATION: RIGHT FEMUR TECHNIQUE:Two views [...] Visualized femur. Reported By: RAYMOND ARRIAGA M.D. 9-Axi-668705:43 UNILAT DIA DIGITAL & CAD Radiology Report See Note (Normal) Comments: Exam Number: [id number] MAMMOGRAM, UNILATERAL LEFT DIAGNOSTIC DIGITAL AND CAD HISTORYAbnormal mammogram, left breast. TECHNIQUEFull field digital images were obtained in left true lateral, rolledcranio caudal, and spot mediolateral oblique and craniocaudalprojections. CAD images were reviewed. The current study is compared to the examinations of March 12, 2006,and June 21, 2009. FINDINGSThere is a yzlckagn-im-fwistw extent of fibroglandular parenchymapresent. There is no [...] wereal so examined with computer-aided detection software ([employer] Reported By: ANTHONY PALOMARES M.D. 12-Gnr-173373:04 [facility]AT [facility] DIGITAL [facility] CAD Radiology Report See Note (Normal) Comments: Exam Number: [id number] MAMMOGRAM, BILATERAL SCREENING DIGITAL AND CAD HISTORYRoutine [...] werealso examined with computer- aided detection software ([employer] Reported By: ANTHONY PALOMARES M.D. 20-Ogb-832921:03 DEXA BONE DENSITY STUDY () Radiology Report See Note (Normal) Comments: Exam Number: [id number] BONE DENSITOMETRY HISTORYOsteopenia. TECHNIQUE Bone densitometry of the lumbar spine and both hips is now beingperformed. The best criteria for evaluation of osteoporosis is theT-value, which represents the comparison of the patient's bone mass flako expected peak bone mass. For most patients, the mean T-value of X6hdnthmf L4 is used to evaluate the lumbar spine. To evalua te the hip,the lower T-value of the femoral neck or total hip is used. FINDINGSIn this patient, the mean T-value of L1 through L4 is 0.3 which isnormal. Bone mineral density is measured at 18.3% greate r than ot9449.Digital lateral view for evaluation of vertebral deformity [...] within normallimits. Reported By: ANTHONY PALOMARES M.D. 10-Qwf-848036:09 BRAIN/HEAD W/WO CONTRAST Radiology Report See Note (Normal) Comments: Exam Number: [id number] CLINICAL:69 year old female with altered mental [...] are present. Reported By: ANTHONY GRIER M.D. 41-Zie-01701:02 CBCD,SMEAR DIFF CELLS COUNTED 100 (Normal) LYMPH [...] mg/dL VLDL 32 mg/dL (Normal) Range: 5-40 10-Vku-05473:02 MICROALB:CRE UR MALB:CREAT 38.4 {mg/g_CRE} (Abnormal) MICROALBUMIN,UR 47.5 mg/L (Normal) UR CREAT 123.4 mg/dL (Normal) 07-Jun-2009 VIT D,25 88212 19.7 ng/mL Range: 32.0-100.0 9:02 (Abnormal) Comments: Recent studies consider the lower limit of 32.0 ng/mL to tammy threshold for optimal health.Pepito ANNE. J Nutr. 2004;135(2):317- 22.Performed At: [facility] [place] [id number] 07-Jun-2009 VITAMIN B12 328 pg/mL (Normal) Range: 254-1320 9:02 11-Feb-2009 Homocyst(e)ine, Plasma 9.8 umol/L (Normal) Comments: PERFORMED BY: [employer] [address] [id number] 14:28 Range: 0.0-15.0 11-Feb-2009 Methylmalonic Acid, 336 nmol/L (Normal) Comments: PERFORMED BY: [facility] [id number] 14:28 Serum Range: 73-376 Comments: The reference range for methylmalonic acid has been set at +3sd abovethe mean for healthy blood bank donors. In the clinical assessment ofpatients with megaloblastic anemias a cutoff of +3sd provides gr eaterspecificity in the diagnosis of the vitamin deficiency states,despite the sacrifice of some sensitivity. 11-Feb-2009 TSH 2.700 {uIU/mL} Comments: PERFORMED BY: [facility]CoM[facility] HospitalJmaodpqxck0883 [facility] [id number] 14:28 (Normal) Range: 0.450-4.500 11-Feb-2009 Vitamin B12 231 pg/mL (Normal) Comments: PERFORMED BY: [facility] Lmpwwppywa6883 [facility] [id number] 14:28 Range: 211-911 7-Mvs-572887:09 HAND,MIN 3 VIEWS (MT) Radiology Report See Note (Normal) Comments: Exam Number: [id number] RIGHT WRIST CLINICAL DATAFell and injured the [...] osteoarthritis right hand. Reported By: FERNANDO TUCKER 7-Jkq-312184:09 WRIST,MIN 3 VIEWS (MT) Radiology Report See Note (Normal) Comments: Exam Number: [id number] RIGHT WRIST CLINICAL DATAFell and injured the [...] PANEL, COMPREHENSIVE Comments: PATIENT WAS FASTINGPERFORMED BY: [facility]6370 [facility] [id number] (88667) A/G Ratio 1.9 (Normal) Range: 1.1-2.5 Albumin, [...] 141 mmol/L (Normal) Range: 135-145 :42 TSH (78849) Comments: PATIENT WAS FASTINGPERFORMED BY: [employer] [facility] [id number] TSH 4.980 {uIU/mL} (Abnormal) Range: 0.450-4.500 :42 MICROALBUMIN: CREATININE RATIO Comments: PATIENT WAS FASTINGPERFORMED BY: Chance (app) [facility] [id number] (06042) AND (02505) Creatinine, Urine 130.9 mg/dL (Normal) Range: 15.0-278.0 Microalb/Creat Ratio 66.4 {ug/mg_creat} (Abnormal) Range: 0.0-30.0 Microalbumin, Urine 86.9 ug/mL (Abnormal) Range: 0.0-17.0 :42 LIPID PANEL (82031) Comments: PATIENT WAS FASTINGPERFORMED BY: zervedlin6370 [facility] [id number] Cholesterol, Total 148 mg/dL (Normal) Range: 100-199 HDL Cholesterol 42 mg/dL (Normal) Comments: According to ATP-III Guidelines, HDL-C >59 mg/dL is considered anegative risk factor for CHD. LDL Cholesterol Calc 78 mg/dL (Normal) Range: 0-99 LDL/HDL Ratio 1.9 {ratio_units} (Normal) Range: 0.0-3.2 Triglycerides 141 mg/dL (Normal) Range: 0-149 VLDL Cholesterol Priscilla 28 mg/dL (Normal) Range: 5-40 :42 CBC WITH MANUAL DIFF (87827) Comments: PATIENT WAS FASTINGClinical Information: ADD DRAW FEE 021021 ADD J 65511 PERFORMED BY: Huan Xiong Zapfwz9150 [facility] [id number] Baso (Absolute) 0.1 {x10E3/uL} (Normal) Range: 0.0-0.2 [...] B-12 (CYANOCOBALAMIN) Comments: PATIENT WAS FASTINGPERFORMED BY: LabCoTravis [place] 9577670 [facility] [id number] (25459) Vitamin B12 232 pg/mL (Normal) Range: 211-911 8-Ftl-129303:06 Blood Glucose , Office (42284) Blood Glucose , Office 155 (Normal) :27 [...] 47-70 WBC 8.7 K/mm3 (Normal) Range: 4.4-11.0 67-Ctb-78562:27 COMP METABOLIC A/G 1.1 {RATIO} (Normal) Range: [...] :06 TSH 2.34 {uIU/mL} (Normal) Range: 0.34-4.82 5-Uox-284563:27 HgA1C , Office (32445) Comments: done>Wf. HgA1C , Office 6.2 % (Normal) Range: 4.6 - 7.1 :27 Blood Glucose , Office (17219) Comments: done>Wf. Blood Glucose , Office 152 (Normal) 7-Gxl-664122:55 CBCD BASO% 0.9 % (Normal) Range: 0-1 [...] 11.6-14.6 WBC 7.5 K/mm3 (Normal) Range: 4.4-11.0 8-Uar-635147:55 COMP METABOLIC A/G 1.2 {RATIO} (Normal) Range: [...] for patient's is the eGFRmultiplied by 1.212. [facility] Laboratory uses the abbreviated Modification [...] Disease W/O Kidney Disease>/= 90 Stage One Itwdnf65 - 89 Stage Two Suspect Decrease d [...] T PROT 7.3 g/dL (Normal) Range: 6.4-8.2 9-Vkg-991707:55 LIPID CHOL 287 mg/dL (Abnormal) Comments: <200 [...] mg/dL VLDL 50 mg/dL (Abnormal) Range: -40 4-Jno-776020:55 MICROALB:CRE UR MALB:CREAT 28.3 {mg/g_CRE} (Normal) MICROALBUMIN,UR 41.7 mg/L (Normal) UR CREAT 147.6 mg/dL (Normal) 5-Bbe-093514:55 TSH 5.53 {uIU/mL} (Abnormal) Range: 0.34-4.82 86-Epi-596667:25 TSH 0.16 {uIU/mL} (Abnormal) Range: 0.34-4.82 20-Bhc-631316:31 HgA1C , Office (41063) Comments: done km HgA1C , Office 6.5 % (Normal) Range: 4.6 - 7.1 :31 Blood Glucose , Office (90937) Comments: done Blood Glucose , Office 128 (Normal) 23-Uga-135089:01 TSH 5.15 {uIU/mL} (Abnormal) Range: 0.34-4.82 :12 HgA1C , Office (86837) Comments: done HgA1C , Office 6.2 % (Normal) Range: 4.6 - 7.1 :12 Blood Glucose , Office (52254) Comments: done Blood Glucose , Office 187 [...] Serum 117 ng/mL (Normal) Comments: PERFORMED BY: [facility]olvSaint [facility] Health CenterCsdjrk5633 [facility] [id number] Range: 10-291 :33 Iron and TIBC Comments: PERFORMED BY: [facility]6370 [facility] [id number] Iron Bind.Cap.(TIBC) 304 ug/dL (Normal) Range: 250-450 Iron Saturation 26 % (Normal) Range: 15-55 Iron, Serum 78 ug/dL (Normal) Range: 35-155 UIBC 226 ug/dL (Normal) Range: 150-375 : Vitamin B12 412 pg/mL (Normal) Comments: PERFORMED BY: [facility]vMemorial Medical CenterVtwfsd9617 [facility] [id number] 33 Range: 211-911 :56 LIPID CHOL 222 [...] (Normal) Range: 6.4-8.2 :07 HgA1C , Office (79982) Comments: done km HgA1C , Office 5.9 % (Normal) Range: 4.6 - 7.1 3-Dug-189754:07 Blood Glucose , Office (28097) Comments: done km Blood Glucose , Office [...] mg/dL (Abnormal) Range: 34-200 Comments: Performed At: [facility] [place], [place] [id number] 94-Orp-935983:08 IRON+TIBC IRON SATURATION 17.9 % (Normal) Range: 15.0-55.0 IRON, SERUM 52 ug/dL (Normal) Range: 35-150 TIBC 290 ug/dL (Normal) Range: 250-450 44-Yao-063656:08 LDH 151 U/L (Normal) Range: 100-190 67-Nwd-011696:08 RETIC 1.77 % (Abnormal) Range: 0.5-1.5 :08 [...] mg/dL (Normal) Range: 34-200 Comments: Performed At: [address] [id number] :56 IRON+TIBC IRON SATURATION 17.1 % (Normal) [...] OR 'R' FOR RANDOM: 3 Range: 21-215 3-Hqa-767941:15 CPKMB 0.5 ng/mL (Normal) Comments: Precautions*: NOT [...] 1.49 INDETERMINANT > OR = 1.50 SUGGEST MN :05 CPK TOTAL 149 U/L (Normal) Comments: [...] 1.49 INDETERMINANT > OR = 1.50 SUGGEST MN :15 PRO TIME Comments: Precautions*: NOT APPLICABLE INR 1.0 (Normal) PROTIME 12.6 s (Normal) Range: 11.7-13.3 :15 TROPONIN-I < 0.04 ng/mL (Normal) Comments: Precautions*: NOT APPLICABLE Comments: TROPONIN-I EXPECTED VALUES < 0.50 NEGATIVE 0.50 - 1.49 INDETERMINANT > OR = 1.50 SUGGEST MN :00 BMP Comments: COMMENTS: FEARONPrecautions*: NOT APPLICABLEINDICATE [...] 1.49 INDETERMINANT > OR = 1.50 SUGGEST MN :48 HgA1C , Office (98200) HgA1C , Office 6.4 % (Normal) Range: 4.6 - 7.1 :48 Blood Glucose , Office (01220) Blood Glucose , Office 113 (Normal) Plan [...] Indication: Double vision Double vision : Reviewed Felt Puller Letter Indication: Double vision Fatty liver : [...] BMI 36.0-36.9,adult Right hip pain : Reviewed Felt Puller Letter Indication: Right hip pain Right hip [...] (monoclonal gammopathy of unknown significance) : Reviewed Felt Puller Letter- stable and discharged from onc Indication: [...] Fall down steps, initial encounter : Reviewed Felt Puller Letter Indication: Fall down steps, initial encounter [...] infarction, unspecified Cerebral infarction, unspecified : Reviewed Felt Puller Letter Indication: Cerebral infarction, unspecified Upper respiratory [...] Planned Observations CBC, PLATELETS & AUT DIFF (71584)Indication: Other vitamin B12 deficiency anemia On: :17 Request TSH (51096)Indication: Abnormal TSH On: :38 Request T4, FREE (THYROXINE) (48784)Indication: Abnormal TSH On: :38 Request T3, FREE (TRIDOTHYRONINE) (84725)Indication: Abnormal TSH On: :38 Request ANTI-LIVER/KIDNEY MICROSOMAL ANTIBODY (39380)Indication: Elevated liver enzymes On: 62-Icy-963615:34 Request TSH (62206)Indication: Abnormal TSH On: :31 Request T4, FREE (THYROXINE) (55053)Indication: Abnormal TSH On: 04-Dtg-767150:31 Request T3, FREE (TRIDOTHYRONINE) (68694)Indication: Abnormal TSH On: 92-Hse-698244:31 Request BETA-2 MICROGLOBULIN (62831)Indication: Abnormal blood chemistry On: 18-Hyd-684087:08 Request Urinalysis, Office (07224)Indication: Urinary frequency On: 51-Ovs-413823:38 Request CBC WITH MANUAL DIFF (81748)Indication: Therapeutic drug monitoring On: :57 Request Metabolic Panel, Basic (11239)Indication: Therapeutic drug monitoring On: :57 Request Methymalonic Acid, Serum (16810)Indication: Vitamin B 12 deficiency On: 26-Diz-067847:51 Request CALCIFIDIOL (32070) VIT D 25Indication: Vitamin D deficiency, unspecified On: 56-Ege-559501:45 Request LIPID PANEL (64411)Indication: Other and unspecified hyperlipidemia On: 28-Oea-046313:45 Request CALCIFIDIOL (86078) VIT D 25Indication: Uncontrolled type II diabetes mellitus On: :46 Request TSH (09278)Indication: Uncontrolled type II diabetes mellitus On: :46 Request URINALYSIS, W/ MICRO (40690)Indication: Uncontrolled type II diabetes mellitus On: :46 Request MICROALBUMIN: CREATININE RATIO (41422) AND (45771)Indication: Uncontrolled type II diabetes mellitus On: :46 Request METABOLIC PANEL, COMPREHENSIVE (89484)Indication: Uncontrolled type II diabetes mellitus On: :46 Request LIPID PANEL (92983)Indication: Uncontrolled type II diabetes mellitus On: :45 Request CBC W/AUTO DIFF WBC (28650)Indication: Uncontrolled type II diabetes mellitus On: :45 Request Rapid Flu (26595 x 2)Indication: Flu-like symptoms On: 58-Lsl-107495:12 Request VITAMIN B-12 (CYANOCOBALAMIN) (37647)Indication: Vitamin B 12 deficiency On: 78-Dxh-730428:45 Request FECAL OCCULT- Tubes sent home (13832)Indication: Encounter for screening for malignant neoplasm of colon (Renamed from Special screening for malignant neoplasms, colon) On: 13-Wjc-862245:35 Request THYROXINE FREE (50781)Indication: Tachycardia On: 2-Hyg-904522:04 Request FREE TRIDOTHYRONINE (T3) ([id number])Indication: Tachycardia On: 6-Myf-921150:04 Request TSH (THYROID STIMULATING HORMONE) (49832)Indication: Tachycardia On: 5-Fuv-151515:04 Request serum immunofixation (89280)Indication: MGUS (monoclonal gammopathy of unknown significance) On: 03-Bli-339738:14 Request urine immunofixation (18353)Indication: MGUS (monoclonal gammopathy of unknown significance) On: 78-Tpn-447040:14 Request serum free light chains (77089)Indication: MGUS (monoclonal gammopathy of unknown significance) On: 93-Rsq-417950:14 Request CBC W/AUTO DIFF WBC (71318)Indication: Diabetes mellitus type 2, controlled On: :13 Request MICROALBUMIN: CREATININE RATIO (05578) AND (30322)Indication: Diabetes mellitus type 2, controlled On: :13 Request METABOLIC PANEL, COMPREHENSIVE (50169)Indication: Diabetes mellitus type 2, controlled On: :13 Request LIPID PANEL (28983)Indication: Mixed hyperlipidemia On: 75-Dmi-324866:13 Request VITAMIN B-12 (CYANOCOBALAMIN) (39413)Indication: Other vitamin B12 deficiency anemia On: 40-Ome-470423:12 Request CBC (AUTO) ([id number])Indication: Other vitamin B12 deficiency anemia On: 64-Kma-909280:12 Request Vitamin D Hydroxy (62260)Indication: Vitamin D deficiency, unspecified On: 07-Cpk-177796:12 Request LIPID PANEL (71813)Indication: Mixed hyperlipidemia On: :42 Request METABOLIC PANEL, COMPREHENSIVE (19550)Indication: Benign essential hypertension (Renamed from Benign essential HTN) On: :41 Request MICROALBUMIN: CREATININE RATIO (33147) AND (17831)Indication: Benign essential hypertension (Renamed from Benign essential HTN) On: :41 Request SPEP (08468)Indication: Anemia, unspecified On: 69-Fzc-831652:17 Request UPEP ([id number])Indication: Anemia, unspecified On: 90-Dhi-336698:17 Request CBC W/AUTO DIFF WBC (90597)Indication: Iron (Fe) deficiency anemia On: 9-Soj-431616:38 Request TSH (03406)Indication: Acquired hypothyroidism On: 2-Efw-695319:38 Request TSH ([id number])Indication: Acquired hypothyroidism On: :34 Request SPEP (75731)Indication: Iron (Fe) deficiency anemia On: :34 Request UPEP (16271)Indication: Iron (Fe) deficiency anemia On: :34 Request IRON BINDING CAPACITY (TIBC) (67958)Indication: Iron (Fe) deficiency anemia On: :34 Request FERRITIN (39967)Indication: Iron (Fe) deficiency anemia On: :34 Request IRON ([id number])Indication: Iron (Fe) deficiency anemia On: :34 Request CBC, PLATELETS & AUT DIFF (17406)Indication: Other vitamin B12 deficiency anemia On: :34 Request VITAMIN B-12 (CYANOCOBALAMIN) (09068)Indication: Other vitamin B12 deficiency anemia On: :33 Request Hemoglobin Glyclated (HGB A1C) (20335)Indication: Diabetes mellitus type 2, controlled On: :33 Request CBC, PLATELETS & AUT DIFF (05571)Indication: Other vitamin B12 deficiency anemia On: 76-Uuh-335562:31 Request VITAMIN B-12 (CYANOCOBALAMIN) (80428)Indication: Other vitamin B12 deficiency anemia On: :30 Request METABOLIC PANEL, COMPREHENSIVE (96596)Indication: Benign essential hypertension (Renamed from Benign essential HTN) On: :30 Request LIPID PANEL (41821)Indication: Other and unspecified hyperlipidemia On: :30 Request Vitamin D Hydroxy (69194)Indication: Vitamin D deficiency, unspecified On: :30 Request SJNWR-SGIPRWPREGF-UIGAP (50814)Indication: Fatty liver On: :30 Request BNRLT-BKLRVXVBAWV-LQZTK (32099)Indication: Fatty liver On: 81-Onq-700722:24 Request LIPID PANEL (22269)Indication: Mixed hyperlipidemia On: :23 Request TSH ([id number])Indication: Acquired hypothyroidism On: :23 Request MICROALBUMIN: CREATININE RATIO (17895) AND (12874)Indication: Diabetes mellitus type 2, controlled On: : Request METABOLIC PANEL, COMPREHENSIVE (74569)Indication: Diabetes mellitus type 2, controlled On: : Request Vitamin D Hydroxy (19718)Indication: Vitamin D deficiency, unspecified On: : Request CBC, PLATELETS & AUT DIFF (52491)Indication: Other vitamin B12 deficiency anemia On: Request VITAMIN B-12 (CYANOCOBALAMIN) (10460)Indication: Other vitamin B12 deficiency anemia On: : Request Vitamin D Hydroxy (84432)Indication: Vitamin D deficiency, unspecified On: Request VITAMIN B-12 (CYANOCOBALAMIN) (71459)Indication: Other vitamin B12 deficiency anemia On: Request CBC W/AUTO DIFF WBC (22039)Indication: Other vitamin B12 deficiency anemia On: Request TSH (94630)Indication: Acquired hypothyroidism On: 37 Request LIPID PANEL (84436)Indication: Mixed hyperlipidemia On: Request UQCFP-VLXHVWZOPIM-VKQEH (71610)Indication: Fatty liver On: :08 Request PTT (Activated Partial Thromboplastin Time) (51160)Indication: Fatty liver On: : Request PT (Prothrobim Time) (20878)Indication: Fatty liver On: : Request Vitamin D Hydroxy (06829)Indication: Vitamin D deficiency, unspecified On: : Request VITAMIN B-12 (CYANOCOBALAMIN) (25550)Indication: Other vitamin B12 deficiency anemia On: : Request CBC W/AUTO DIFF WBC (91698)Indication: Diabetes mellitus type 2, controlled On: : Request METABOLIC PANEL, COMPREHENSIVE (51806)Indication: Diabetes mellitus type 2, controlled On: : Request LIPID PANEL (47050)Indication: Mixed hyperlipidemia On: : Request LIPID PANEL (79105)Indication: HYPERTENSION, NOS On: 9-Pyx-602553:40 Request CBC WITH MANUAL DIFF (98101)Indication: HYPERTENSION, NOS On: 3-Pjd-248397:40 Request METABOLIC PANEL, COMPREHENSIVE (63322)Indication: HYPERTENSION, NOS On: 4-Fww-547145:40 Request FECAL OCCULT- Tubes sent home (70424)Indication: Anemia, unspecified On: 45-Jyx-216476:38 Request IRON (50882)Indication: Anemia, unspecified On: 14-Ytd-523259:38 Request CBC WITH MANUAL DIFF (60562)Indication: HYPERTENSION, NOS On: 6-Rdz-362674:29 Request METABOLIC PANEL, COMPREHENSIVE (09833)Indication: Uncontrolled type II diabetes mellitus On: 4-Nsg-730657:28 Request TSH (THYROID STIMULATING HORMONE) (49103)Indication: Acquired hypothyroidism On: 40-Ovk-731128:08 Request HgA1C , Office (85663)Indication: Diabetes mellitus type 2, controlled On: 22-Wwb-155957:55 Request VITAMIN B-12 (CYANOCOBALAMIN) (17675)Indication: Other vitamin B12 deficiency anemia On: 6-Zdk-504683:17 Request LIPID PANEL (62932)Indication: Other and unspecified hyperlipidemia On: 4-Pxm-885720:17 Request MICROALBUMIN: CREATININE RATIO (21465) AND ([id number])Indication: Uncontrolled type II diabetes mellitus On: 5-Vrp-773569:17 Request METABOLIC PANEL, COMPREHENSIVE (44766)Indication: Uncontrolled type II diabetes mellitus On: 0-Kwc-093680:17 Request HgA1C , Office (78964)Indication: Diabetes mellitus type 2, controlled On: 37-Sxf-824097:25 Request LIPID PANEL (60111)Indication: Other and unspecified hyperlipidemia On: 71-Vpu-743185:11 Request METABOLIC PANEL, COMPREHENSIVE (36914)Indication: Diabetes mellitus type 2, controlled On: 70-Lvt-719073:11 Request MICROALBUMIN: CREATININE RATIO (86353) AND (82395)Indication: Diabetes mellitus type 2, controlled On: 66-Stp-484656:11 Request VITAMIN B-12 (CYANOCOBALAMIN) (19112)Indication: Other vitamin B12 deficiency anemia On: 88-Gwt-445854:11 Request CBC, PLATELETS & AUT DIFF ([id number])Indication: Other vitamin B12 deficiency anemia On: 10-Xgw-834824:11 Request Vitamin D Hydroxy (81068)Indication: Vitamin D deficiency, unspecified On: 64-Xov-772078:10 Request Blood Glucose , Office (49460)Indication: Diabetes mellitus type 2, controlled On: :29 Request LIPID PANEL (27382)Indication: Other and unspecified hyperlipidemia On: : Request Vitamin D Hydroxy (71617)Indication: Vitamin D deficiency, unspecified On: : Request VITAMIN B-12 (CYANOCOBALAMIN) (45650)Indication: Other vitamin B12 deficiency anemia On: : Request METABOLIC PANEL, COMPREHENSIVE (19881)Indication: Benign essential hypertension (Renamed from Benign essential HTN) On: : Request MICROALBUMIN: CREATININE RATIO (18590) AND (15638)Indication: Uncontrolled type II diabetes mellitus On: : Request Sputum Culture (91438)Indication: Chronic cough On: 9-Kla-053608:58 Request RANI CULTURE-OTHER (96442)Indication: Sore throat On: 33-Xfe-730919:06 Request Urinalysis, Office (61087)Indication: Abnormal urine On: 7-Loh-674161:14 Request RANI CULTURE-OTHER (21232)Indication: Abnormal urine On: 9-Kyd-016236:14 Request CCP ANTIBODY (13681)Indication: History of poliomyelitis (Renamed from H/O acute poliomyelitis) On: 6-Bfq-864132:22 Request ANTI-Sm (ANTI [place] ANTIBODY) (52035) test code 290428Bleuexvqrm: History of poliomyelitis (Renamed from H/O acute poliomyelitis) On: 7-Hbc-132460:22 Request RHEUMATOID FACTOR-QUANT (74735) test code 353140Usqtxrmvxi: History of poliomyelitis (Renamed from H/O acute poliomyelitis) On: 8-Ftk-722330:22 Request Vitamin D Hydroxy (73903)Indication: Vitamin D deficiency, unspecified On: 35-Lgf-957995:15 Request LIPID PANEL (28067)Indication: Other and unspecified hyperlipidemia On: 16-Awa-776641:15 Request TSH (50974)Indication: Acquired hypothyroidism On: 61-Xme-374300:15 Request METABOLIC PANEL, COMPREHENSIVE (00993)Indication: Diabetes mellitus type 2, controlled On: 65-And-389246:14 Request VITAMIN B-12 (CYANOCOBALAMIN) (54463)Indication: Other vitamin B12 deficiency anemia On: 57-Ydp-527674:08 Request MICROALBUMIN: CREATININE RATIO (21057) AND (56366)Indication: Uncontrolled type II diabetes mellitus On: 07-Jsw-988962:30 Request METABOLIC PANEL, COMPREHENSIVE (64497)Indication: Uncontrolled type II diabetes mellitus On: 58-Zmg-549464:30 Request TSH (14675)Indication: Acquired hypothyroidism On: 04-Kxc-630679:30 Request Vitamin D Hydroxy (53883)Indication: Vitamin D deficiency, unspecified On: :30 Request LIPID PANEL (69295)Indication: Other and unspecified hyperlipidemia On: 20-Pbp-727012:29 Request LIPID PANEL (20172)Indication: Other and unspecified hyperlipidemia On: 98-Eyr-019265:51 Request TSH (05212)Indication: Acquired hypothyroidism On: 06-Yva-855835:50 Request Vitamin D Hydroxy (87298)Indication: Vitamin D deficiency, unspecified On: 47-Vwj-688553:50 Request CBC WITH MANUAL DIFF (85096)Indication: Diabetes mellitus type 2, controlled On: 80-Ylp-218438:50 Request METABOLIC PANEL, COMPREHENSIVE (81116)Indication: Diabetes mellitus type 2, controlled On: 57-Jmb-528198:50 Request Vitamin D Hydroxy (23665)Indication: Vitamin D deficiency, unspecified On: 35-Bhi-737230:44 Request VITAMIN B-12 (CYANOCOBALAMIN) (19305)Indication: Other vitamin B12 deficiency anemia On: 34-Mxb-170347:44 Request CBC WITH MANUAL DIFF (60720)Indication: Anemia, unspecified On: 18-Maa-253169:43 Request METABOLIC PANEL, COMPREHENSIVE (24178)Indication: Diabetes mellitus type 2, controlled On: 73-Kgg-626744:43 Request MICROALBUMIN: CREATININE RATIO (40300) AND (72838)Indication: Diabetes mellitus type 2, controlled On: 68-Tjn-035634:43 Request LIPID PANEL (49639)Indication: Other and unspecified hyperlipidemia On: 65-Akf-420383:43 Request TSH (98975)Indication: Acquired hypothyroidism On: 39-Dbt-628526:43 Request Vitamin D Hydroxy (51795)Indication: Vitamin D deficiency, unspecified On: : Request LIPID PANEL (76028)Indication: Other and unspecified hyperlipidemia On: : Request CBC WITH MANUAL DIFF (89576)Indication: Diabetes mellitus type 2, controlled On: : Request METABOLIC PANEL, COMPREHENSIVE (96732)Indication: Diabetes mellitus type 2, controlled On: : Request VITAMIN B-12 (CYANOCOBALAMIN) (25989)Indication: Other vitamin B12 deficiency anemia On: 8-Fdt-969897:36 Request Comments: Lot #[id number]-left deltoidDose-1 mlgiven by: Dani Rivera LPN LIPID PANEL (62998)Indication: Other and unspecified hyperlipidemia On: : Request METABOLIC PANEL, COMPREHENSIVE (35295)Indication: Uncontrolled type II diabetes mellitus On: :28 Request TSH (85457)Indication: Acquired hypothyroidism On: :28 Request Vitamin D Hydroxy (12060)Indication: Vitamin D deficiency, unspecified On: : Request CBC WITH MANUAL DIFF (30855)Indication: Anemia, unspecified On: : Request CBC WITH MANUAL DIFF (51303)Indication: Other vitamin B12 deficiency anemia On: :20 Request Blood Glucose , Office (70234)Indication: Uncontrolled type II diabetes mellitus On: :15 Request Comments: 149 HgA1C , Office (01540)Indication: Uncontrolled type II diabetes mellitus On: :15 Request METABOLIC PANEL, COMPREHENSIVE (15653)Indication: Other and unspecified hyperlipidemia On: : Request LIPID PANEL (25432)Indication: Other and unspecified hyperlipidemia On: : Request TSH (64382)Indication: Acquired hypothyroidism On: : Request HEMOGLOBIN GLYCLATED (HGB A1C) (02891)Indication: Abnormal glucose tolerance test On: 11-Hsm-518375:20 Request VITAMIN B-12 (CYANOCOBALAMIN) (92848)Indication: Other vitamin B12 deficiency anemia On: 05-Sxp-114913:17 Request Vitamin D Hydroxy (05883)Indication: Vitamin D deficiency, unspecified On: 8-Ofr-902412:21 Request VITAMIN B-12 (CYANOCOBALAMIN) (62674)Indication: Other vitamin B12 deficiency anemia On: :20 Request LIPID PANEL (16913)Indication: Abnormal glucose tolerance test On: :20 Request CBC WITH MANUAL DIFF (84029)Indication: Abnormal glucose tolerance test On: :20 Request METABOLIC PANEL, COMPREHENSIVE (23093)Indication: Abnormal glucose tolerance test On: :20 Request METABOLIC PANEL, COMPREHENSIVE (01696)Indication: Abnormal glucose tolerance test On: 9-Ywv-773356:59 Request CBC WITH MANUAL DIFF (60918)Indication: Abnormal glucose tolerance test On: 8-Gbt-856158:59 Request Vitamin D Hydroxy (13471)Indication: Vitamin D deficiency, unspecified On: 3-Kgh-165851:59 Request VITAMIN B-12 (CYANOCOBALAMIN) (27731)Indication: Other vitamin B12 deficiency anemia On: 8-Hfw-155955:59 Request TSH (06339)Indication: Acquired hypothyroidism On: 9-Rat-989050:58 Request LIPID PANEL (86644)Indication: Other and unspecified hyperlipidemia On: 3-Qtv-353635:58 Request CCP ANTIBODY (41334)Indication: Pain in unspecified joint On: 90-Aaw-463433:22 Request VITAMIN B-12 (CYANOCOBALAMIN) (57873)Indication: Other vitamin B12 deficiency anemia On: 9-Rzj-391227:10 Request Vitamin D Hydroxy (86440)Indication: Vitamin D deficiency, unspecified On: 1-Mqe-861127:10 Request MICROALBUMIN: CREATININE RATIO (10492) AND (55167)Indication: Uncontrolled type II diabetes mellitus On: 2-Ocd-331444:10 Request CBC WITH MANUAL DIFF (08621)Indication: Uncontrolled type II diabetes mellitus On: 1-Nou-721778:10 Request METABOLIC PANEL, COMPREHENSIVE (62003)Indication: Benign essential hypertension (Renamed from Benign essential HTN) On: 0-Ngn-769638:09 Request LIPID PANEL (71426)Indication: Other and unspecified hyperlipidemia On: 3-Fky-889919:09 Request TSH (47373)Indication: Acquired hypothyroidism On: 5-Yrm-244766:39 Request VITAMIN B-12 (CYANOCOBALAMIN) (82956)Indication: Other vitamin B12 deficiency anemia On: 9-Wua-639726:37 Request HEPATIC FUNCTION PANEL (61240)Indication: Other and unspecified hyperlipidemia On: 6-Caq-147502:36 Request LIPID PANEL (86314)Indication: Other and unspecified hyperlipidemia On: 4-Mlm-252324:36 Request Vitamin D Hydroxy (70386)Indication: Vitamin D deficiency, unspecified On: 7-Bmh-685135:36 Request METABOLIC PANEL, COMPREHENSIVE (63733)Indication: Benign essential hypertension (Renamed from Benign essential HTN) On: 3-Cfp-743848:35 Request LIPID PANEL (81051)Indication: Other and unspecified hyperlipidemia On: 5-Xpq-679037:35 Request Vitamin D Hydroxy (83271)Indication: Vitamin D deficiency, unspecified On: 2-Mas-734809:30 Request Vitamin D Hydroxy (83100)Indication: Vitamin D deficiency, unspecified On: 14-Nux-219193:10 Request MICROALBUMIN: CREATININE RATIO (68958) AND (68651)Indication: Uncontrolled type II diabetes mellitus On: 38-Zye-834140:07 Request LIPID PANEL (78288)Indication: Other and unspecified hyperlipidemia On: 57-Yrk-449978:07 Request TSH (74128)Indication: Acquired hypothyroidism On: 96-Qdk-900708:07 Request VITAMIN B-12 (CYANOCOBALAMIN) (19327)Indication: Other vitamin B12 deficiency anemia On: 41-Abg-169267:42 Request Vitamin D Hydroxy (92515)Indication: Vitamin D deficiency, unspecified On: 70-Inm-505554:50 Request IRON BINDING CAPACITY (TIBC) (00398)Indication: Iron (Fe) deficiency anemia On: 41-Kgo-859890:50 Request LDH (LD) (LACTATE DEHYDROGENASE) (39424)Indication: Iron (Fe) deficiency anemia On: 79-Fzm-660844:50 Request FERRITIN (50558)Indication: Iron (Fe) deficiency anemia On: 06-Ifm-343125:50 Request IRON (34200)Indication: Iron (Fe) deficiency anemia On: :50 Request CBC WITH MANUAL DIFF (77950)Indication: Iron (Fe) deficiency anemia On: 64-Xlb-752228:50 Request HEPATIC FUNCTION PANEL (21438)Indication: Other and unspecified hyperlipidemia On: :44 Request LIPID PANEL (20664)Indication: Other and unspecified hyperlipidemia On: :44 Request CBC WITH MANUAL DIFF (72022)Indication: Other vitamin B12 deficiency anemia On: :54 Request MICROALBUMIN: CREATININE RATIO (64394) AND (18593)Indication: Glucose intolerance (no malabsorption) On: :54 Request METABOLIC PANEL, COMPREHENSIVE (10155)Indication: HYPERTENSION, NOS On: :54 Request LIPID PANEL (74978)Indication: Other and unspecified hyperlipidemia On: :53 Request VITAMIN B-12 (CYANOCOBALAMIN) (23924)Indication: Other vitamin B12 deficiency anemia On: :53 Request IRON (44491)Indication: Iron (Fe) deficiency anemia On: :53 Request Vitamin D Hydroxy (68310)Indication: Osteopenia On: :49 Request Methylmalonic acid, serum 20003Vkycemygvq: Other vitamin B12 deficiency anemia On: :03 Request VITAMIN B-12 (CYANOCOBALAMIN) (04724)Indication: Other vitamin B12 deficiency anemia On: :03 Request TSH (02423)Indication: Acquired hypothyroidism On: :03 Request HgA1C , Office (35322)Indication: Abnormal glucose tolerance test On: :06 Request TSH (14246)Indication: Acquired hypothyroidism On: :35 Request LIPID PANEL (20317)Indication: Other and unspecified hyperlipidemia On: :35 Request METABOLIC PANEL, COMPREHENSIVE (24577)Indication: SOB (shortness of breath) on exertion On: :34 Request CBC WITH MANUAL DIFF (56839)Indication: SOB (shortness of breath) on exertion On: :34 Request TSH (60847)Indication: Acquired hypothyroidism On: 5-Mxw-334415:46 Request Comments: do in 6 weeks TSH (62924)Indication: Acquired hypothyroidism On: 20-Bqd-869754:15 Request Comments: DO IN 6 WEEKS WITH MEDICATION CHANGE TSH (18873)Indication: Other malaise and fatigue On: 93-Qhl-50491:49 Request Iron Binding Capacity (TIBC) (93692)Indication: Iron (Fe) deficiency anemia On: :43 Request Ferritin (98476)Indication: Iron (Fe) deficiency anemia On: :43 Request Iron (02390)Indication: Iron (Fe) deficiency anemia On: :43 Request HEPATIC FUNCTION PANEL (73396)Indication: Mixed hyperlipidemia On: :42 Request LIPID PANEL (48417)Indication: Mixed hyperlipidemia On: :42 Request Comments: do in 3 months HEPATIC FUNCTION PANEL (67017)Indication: Mixed hyperlipidemia On: 9-Jsx-767161:11 Request LIPID PANEL (48984)Indication: Mixed hyperlipidemia On: 7-Rlz-943324:11 Request Comments: do in 3 mo TSH (37071)Indication: Acquired hypothyroidism On: :23 Request VITAMIN B-12 (CYANOCOBALAMIN) (93656)Indication: Anemia, unspecified On: :23 Request LDH (LD) (LACTATE DEHYDROGENASE) (74678)Indication: Anemia, unspecified On: :23 Request RETICULOCYTE COUNT MANUL (09345)Indication: Anemia, unspecified On: :23 Request IRON BINDING CAPACITY (TIBC) (65173)Indication: Anemia, unspecified On: :23 Request IRON (34634)Indication: Anemia, unspecified On: :23 Request FOLIC ACID SERUM (05293)Indication: Anemia, unspecified On: :23 Request HAPTOGLOBIN (17016)Indication: Anemia, unspecified On: :23 Request FERRITIN (33213)Indication: Anemia, unspecified On: :23 Request CBC, PLATELETS & AUT DIFF (42137)Indication: Anemia, unspecified On: 57-Uzt-781811:23 Request HgA1C , Office (56183)Indication: Abnormal glucose tolerance test On: 14-Dsw-802712:03 Request CBC with manual diff (37830)Indication: Anemia, unspecified On: 35-Wrq-566601:49 Request HgA1C , Office (73290)Indication: Abnormal glucose tolerance test On: 97-Xzg-776940:30 Request Comments: controlled URINALYSIS W/O MICRO (19844)Indication: HYPERTENSION, NOS On: 18-Djx-402539:03 Request TSH (61421)Indication: Acquired hypothyroidism On: 57-Nlm-109517:03 Request MICROALBUMIN URINE QUANT (57770)Indication: HYPERTENSION, NOS On: :03 Request METABOLIC PANEL, COMPREHENSIVE (22887)Indication: HYPERTENSION, NOS On: :03 Request LIPID PANEL (74536)Indication: HYPERTENSION, NOS On: :03 Request CBC WITH MANUAL DIFF ([id number])Indication: HYPERTENSION, NOS On: 38-Ndp-169172:03 Request Planned Encounters Medical; 2 Week FU - On: 10-Jul-2018 13:00 [facility] Melanie KEBEDE, Doris Navarro DO, Doris Jay DO Planned Procedures Radiology - Lumbar SpineBy: Melanie On: 24-Jun-2018 Intent Doris KEBEDE DO, Doris Jay DO Aerosol Treatment (57869)By: On: 14-Apr-2018 Intent Thelma Sofia Comments: Lungs clear after albuterol aerosol treatment Ultrasound - LiverBy: Melanie KEBEDE, On: 21-Nov-2017 Intent Doris Jay DO, DO, Kathleen B 12 Injection, 1000 mcg ([id number])By: On: 21-Nov-2017 Intent Doris Navarro DO, DO, Comments: Vitamin b12 1000mcg injection lot:[id number]:04/2019L DELT IMpt tolerated well CARYN DUMONT DO, Kathleen PHYSICAL THERAPY (11287)By: [place] On: 28-Oct-2017 Intent Thelma Radiology - Hip - LeftBy: [place], On: 28-Oct-2017 Intent Thelma Aerosol Treatment (08106)By: Melanie On: 07-Aug-2017 Intent DO, Doris Melanie DO, Doris Comments: more a/e less nois e Melanie DOTlaiDoris Spirometry (84178)By: Melanie KEBEDE, On: 07-Aug-2017 Intent Doris Melanie DO, Doris Melanie Comments: really poor techniq DO, Doris Radiology - Chest- PA and LatBy: On: 07-Aug-2017 Intent Melanie DO, Doris Melanie DO, Doris Melanie DO, Doris IV Needle placement (62810)By: On: 02-Aug-2017 Intent Melanie DO, Doris Melanie DO, Dorsi Melanie DO, Doris INFUSION, NORMAL SALINE SOLUTION , On: 02-Aug-2017 Intent 1000 CC (Special Coverage Comments: lot:[id number]:02-26-2019rte:right anticubdose:1000ml given by:david Snow, COMMISSIONING SPECIALIST Instructions Apply. See [facility]: 2048) ([id number])By: Melanie KEBEDE, Doris Melanie DO, Doris Melanie DO, Doris INFUSION, NORMAL SALINE SOLUTION , On: 01-Aug-2017 Intent 1000 CC (Special Coverage Comments: lot:[id number]:02-26-2019rte:IV left anticubdose:1000ml NS given by:david matthewsER, COMMISSIONING SPECIALIST Instructions Apply. See MCM: 204) ([id number])By: Marcia Britton Aerosol Treatment (95506)By: Melanie On: 01-Aug-2017 Intent DO, Doris Melanie DO, Doris Comments: more a/e less junky sounding Melanie DOTaliDoris PNEUM VAC ADLT/IMUMNOSPR, SBC/INTRM On: 25-Apr-2017 Intent (38085)By: Doris Navarro DO Comments: 0.5cc given sq lt arm lot [id number] exp 09/05/18 Melanie DOTaliDoris Melanie DO Doris INTENSIVE BEHAVIORAL THERAPY TO On: 25-Apr-2017 Intent REDUCE CARDIOVASCULAR DISEASE RISK, INDIVIDUAL, CZPZ-YA-QRXY, ANNUAL, 15 MINUTES (G0446)By: Melanie DO, Doris Melanie DO, Doris Melanie DO, Doris VOAC-XW-QMON BEHAVIORAL COUNSELING On: 25-Apr-2017 Intent FOR OBESITY, 15 MINUTES (G0447)By: Tali Navarro DOhleen Melanie DO, Doris Melanie DO, Doris B 12 Injection, 1000 mcg (J3420)By: On: 25-Apr-2017 Intent Melanie DO, Doris Melanie DO, Comments: 1 ml given lt arm lot [id number] exp 03/15 Doris Melanie DO, Doris ELECTROCARDIOGRAM, COMPLETE (ECG) On: 25-Apr-2017 Intent (52744)By: Doris Navarro DO Comments: nsr no acute chg Melanie DO, Doris Melanie DO, Doris B 12 Injection, 1000 mcg (J3420)By: On: 14-Mar-2017 Intent Melanie DO, Doris Melanie DO, Comments: lot [id number] 09/16left [id number] mcgas, COMMISSIONING SPECIALIST Doris Melanie DO, Doris B 12 Injection, 1000 mcg ([id number])By: On: 31-Dec-2016 Intent Melanie DO, Doris Melanie DO, Comments: [id number], COMMISSIONING SPECIALIST Doris Melanie DO, Doris B 12 Injection, 1000 mcg ([id number])By: On: 20-Sep-2016 Intent Melanie DO, Doris Melanie DO, Comments: lot:[id number]: 11/13Dose: 1,000 mcgSite: R dltdLocation; IMby:, COMMISSIONING SPECIALIST Doris Melanie DO, Doris Solu- Medrol Injection, 125mg On: 20-Aug-2016 Intent (J2930)By: Doris Navarro DO Comments: lot: [id number]: 01/14site/route: LGM/IMamt:2mLVIS signed when applicableChelsea, DENTAL HYGIENE ADMINISTRATIVE ASSISTANT Melanie DO, Doris Melanie DO, Doris Aerosol Treatment (84126)By: Melanie On: 20-Aug-2016 Intent DO, Doris Melanie DO, Doris Comments: albulterol 0.83%relistedned nad more a/e less noise Melanie DO, Doris B 12 Injection, 1000 mcg (J3420)By: On: 20-Aug-2016 Intent Melanie DO, Doris Melanie DO, Comments: lot: [id number]: ite/route: L del/IMamt: 1mLVIS signed when applicableChelsea, [facility] Doris Melanie DO, Doris Spirometry ([id number])By: Melanie DO, On: 16-Aug-2016 Intent Doris Melanie DO, Doris Melanie Comments: ok stable - DO, Doris Aerosol Treatment ([id number])By: Melanie On: 16-Aug-2016 Intent DO, Doris Melanie DO, Doris Comments: albulterol 0.83%more a.e stil some niose in RUL -- junky and easy to cough Melanie DO, Doris Solu- Medrol Injection, 125mg On: 16-Aug-2016 Intent ([id number])By: Melanie DO Doris Comments: lot [id number] mgright gm, IMas COMMISSIONING SPECIALIST Melanie DO, Doris Melanie DO, Doris B 12 Injection, 1000 mcg (J3420)By: On: 20-Jul-2016 Intent Melanie DO, Doris Melanie DO, Comments: B12lot:[id number]:ite:rt deltroute:IMdose:1mlD.HAY Valentin Doris Melanie DO, Doris Solu- Medrol Injection, 125mg On: 20-Jul-2016 Intent ([id number])By: Melanie DOTaliDoris Comments: lot: [id number]: 01/14site/route: RGM/IMamt: 2mLVIS signed when applicableChelsea, [facility] Melanie DO, Doris Melanie DO, Doris Aerosol Treatment ([id number])By: Melanie On: 20-Jul-2016 Intent DO, Doris Melanie DO, Doris Comments: less wheeze good a/e- less irritability with breathing Melanie DO Doris Radiology - Chest- PA and LatBy: On: 20-Jul-2016 Intent Melanie DO, Doris Melanie DO, Doris Melanie DO, Doris Spirometry ([id number])By: Melanie DO, On: 20-Jul-2016 Intent Doris Melanie DO, Doris Melanie Comments: mild restriction =- poor curve and technique DO, Doris ELECTROCARDIOGRAM, COMPLETE (ECG) On: 20-Jul-2016 Intent ([id number])By: Melanie DOJdDoris Comments: sinus braden no acute chg Melanie DO, Doris Melanie DO, Doris B 12 Injection, 1000 mcg (J3420)By: On: 29-May-2016 Intent Melanie DO, Doris Melanie DO, Comments: Lot:[id number]:11/13Dose:1mlRoute:IMSite:r armGiven By:SAADIA signed Doris Melanie DO, Doris Flu Vaccine (Quadrivalent) 04189Ce: On: 29-May-2016 Intent Melanie DO, Doris Melanie DO, Comments: Lot:[id number]:01/25/17Dose:0.5mLRoute:IMSite:L DltdGiven By:SAADIA signed Doris Melanie DO, Doris B 12 Injection, 1000 mcg (J3420)By: On: 21-May-2016 Intent Melanie DO, Doris Melanie DO, Doris Melanie DO, Doris B 12 Injection, 1000 mcg (J3420)By: On: 18-May-2016 Intent Melanie DO, Doris Melanie DO, Comments: B12lot:[id number]:ite:rt deltroute:IMdose:1mlD.HAY Valentin Doris Melanie DO, Doris B 12 Injection, 1000 mcg (J3420)By: On: 11-May-2016 Intent Melanie DO, Doris Melanie DO, Comments: lot [id number] mcgleft dltdas, COMMISSIONING SPECIALIST Doris Melanie DO, Doris B 12 Injection, [...] 09-Apr-2016 Intent REDUCE CARDIOVASCULAR DISEASE RISK, INDIVIDUAL, SDEE-KE-QPBW, ANNUAL, 15 MINUTES (G0446)By: Melanie DO, Doris Melanie DO, Doris Melanie DO, Doris QNNQ-YM-[id number] BEHAVIORAL COUNSELING On: 09-Apr-2016 Intent FOR OBESITY, 15 MINUTES (G0447)By: Melanie DO, Doris Melanie DO, Doris Melanie DO, Doris MAMMOGRAM, SCREENING, BOTH BREAST On: 09-Apr-2016 Intent ([id number])By: Melanie DO, Doris Melanie DO, Doris Melanie DO, Doris DEXA SCAN AXIAL SKELETON ([id number])By: On: 09-Apr-2016 Intent Melanie DO, Doris Melanie [...] Comments: Lot:[id number]:04/14Dose:1mlRoute:IMSite:l armGiven By:SAADIA signed Aerosol Treatment ([id number])By: Alexy On: 03-Aug-2015 Intent DO, Maggie A B 12 Injection, 1000 mcg (J3420)By: On: 17-May-2015 Intent Fast DO, Maggie A Comments: Lot:[id number]:11/12Dose:1mlRoute:IMSite:l armGiven By:SAADIA signed Flu Vaccine (Quadrivalent) [id number]: On: 17-May-2015 Intent Fast DO, Maggie A Comments: lot [id number]: 01/26/2016site/route L sol, IMamt 0.5mlVIS and ABN signed when applicableChelsea, CMAFM4 ADMINISTRATION OF INFLUENZA VIRUS On: 17-May-2015 Intent VACCINE (G0008)By: Alexy KEBEDE, Maggie A B 12 Injection, 1000 mcg (J3420)By: On: 15-Feb-2015 Intent Kanika Georges Comments: Lot:[id number]:11.16Route:IMSite:R deltoidDose: 1 mLgiven by: Kanika Georges CMA DANIEL (Ankle Brachial Index) On: 08-Feb-2015 Intent ([id number])By: Alexy DO Maggie A Radiology - Lumbar SpineBy: Alexy DO, On: 08-Feb-2015 Intent Maggie A Ultrasound - ThyroidBy: Alexy KEBEDE, On: 09-Nov-2014 Intent Maggie A B 12 Injection, 1000 mcg (J3420)By: On: 09-Nov-2014 Intent Alexy DO Maggie A Comments: lot [id number] mcgleft dltdIMaCARYN milligan Radiology - Chest- PA and LatBy: On: 13-Sep-2014 Intent Alexy DO Maggie A Comments: call stat Pulse Oximetry ([id number])By: Alexy KEBEDE, On: 13-Sep-2014 Intent Maggie A Comments: 97% Inhaler Demonstration ([id number])By: On: 07-Sep-2014 Intent Kimberley Loyd CNP Radiology - Chest- PA and LatBy: On: 14-Jul-2014 Intent Alexy DOMaggie A Comments: call rsults Spirometry ([id number])By: Alexy KEBEDE, On: 14-Jul-2014 Intent Maggie A Comments: good effort and curve mild rest /obst Prevnar 13 ([id number])By: Alexy KEBEDE, On: 30-Jun-2014 Intent Maggie A Comments: lot [id number] 09/2015location L armroute imgiven by - msmithVIS and/or ABN signed MAMMOGRAM, SCREENING, BOTH BREAST On: 14-Apr-2014 Intent ([id number])By: Maggie Tracey DO A B 12 Injection, 1000 mcg (J3420)By: On: 14-Apr-2014 Intent Alexy DO Maggie A Comments: Lot #[id number] date:mount given:1mlRoute: IMSite given: left deltoidGiven by: HAY Zavala Cartoid DopplerBy: Alexy KEBEDE Maggie A On: 14-Apr-2014 Intent Eprescribed prescriptions (G8553)By: On: 07-Oct-2013 Intent Maggie Tracey DO A DXA, BONE DENSITY, AXIAL SKELETON On: 20-Jul-2013 Intent ([id number])By: Maggie Tracey DO Comments: aug Pelvic and Breast, Medicare On: 20-Jul-2013 Intent (G0101)By: Maggie Tracey DO Cartoid DopplerBy: Camelia Tracey DOa A On: 07-Jul-2013 Intent Eprescribed prescriptions (G8553)By: On: 07-Jul-2013 Intent Raiza Ortiz FLU VAC, SPLIT, >3 YEARS, INTRAMUSC On: 04-May-2013 Intent ([id number])By: Maritza Cantor Comments: lot [id number] 2014site/route L sol, IMamt 0.5mlVIS and ABN signed when applicableChelsea, DENTAL HYGIENE ADMINISTRATIVE ASSISTANT ADMINISTRATION OF INFLUENZA VIRUS On: 04-May-2013 Intent VACCINE (G0008)By: Maritza Cantor Radiology - Hip - LeftBy: Alexy KEBEDE, On: 07-Apr-2013 Intent Maggie Armstrong Eprescribed prescriptions (G8553)By: On: 07-Apr-2013 Intent Raiza Ortiz Eprescribed prescriptions (G8553)By: On: 05-Jan-2013 Intent Raiza Ortiz Spirometry (20807)By: Alexy KEBEDE, On: 01-Dec-2012 Intent Maggie Armstrong Comments: good effort and curve normal Radiology - Chest- PA and LatBy: On: 01-Dec-2012 Intent Maggie Tracey DO Comments: stat call wet read Eprescribed prescriptions (G8553)By: On: 01-Dec-2012 Intent Raiza Ortiz Pulse Oximetry ([id number])By: Angel, On: 01-Dec-2012 Intent Raiza Comments: 98% Eprescribed prescriptions (G8553)By: On: 27-Nov-2012 Intent Melanie DO, Doris Melanie DO, Doris Melanie DO, Doris MAMMOGRAM, SCREENING, BOTH BREASTS On: 29-Sep-2012 Intent ([id number])By: Maggie Tracey DO EKG ([id number])By: Raiza Ortiz On: 29-Sep-2012 Intent Comments: ekg- 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 axis and no acute st t wave changes Eprescribed prescriptions (G8553)By: On: 29-Sep-2012 Intent Raiza Ortiz Eprescribed prescriptions (G8553)By: On: 03-Sep-2012 Intent Raiza Ortiz Eprescribed prescriptions (G8553)By: On: 30-Jul-2012 Intent Raiza Ortiz B 12 Injection, 1000 mcg (J3420)By: On: 23-Jun-2012 Intent Alexy DO Maggie A Comments: Lot:[id number]:Dose:1mlRoute:IMSite:L armGiven By:SAADIA signed Eprescribed prescriptions (G8553)By: On: 23-Jun-2012 Intent Raiza Ortiz B 12 Injection, 1000 mcg (J3420)By: On: 25-Mar-2012 Intent Maricruz Rivera LPN Comments: Lot #[id number]-06/10Site-right deltoidDose-1 mlgiven by: Dani Rivera LPN Eprescribed prescriptions (G8553)By: On: 25-Mar-2012 Intent Maggie Tracey DO A FLU VAC, SPLIT, >3 YEARS, INTRAMUSC On: 25-Mar-2012 Intent ([id number])By: Patsy Leslie LPN Comments: Lot/Exp: [id number], 12/2011Given in L Dltd, IMPrefilled SyringeBy CARYN Garner ADMINISTRATION OF INFLUENZA VIRUS On: 25-Mar-2012 Intent VACCINE (G0008)By: Patsy Leslie LPN Echo CompleteBy: Alexy KEBEDE Maggie A On: 07-Dec-2011 Intent B 12 Injection, 1000 mcg (J3420)By: On: 07-Dec-2011 [address] - OtherBy: Alexy DO Maggie A On: 03-Oct-2011 Intent Comments: get cta of carotid arteries TDAP VACCINE >7 IM ([id number])By: On: 03-Oct-2011 Intent Raiza Ortiz B 12 Injection, 1000 mcg (J3420)By: On: 07-Sep-2011 Intent Raiza Ortiz Comments: Lot #[id number]-07/09Site-left deltoidDose-1 mlgiven by: Dani Rivera LPN Cartoid DopplerBy: Alexy DO Maggie A On: 07-Sep-2011 Intent Comments: in september DXA, BONE DENSITY, AXIAL SKELETON On: 07-Sep-2011 Intent ([id number])By: Alexy KEBEDE Maggie A MAMMOGRAM, SCREENING, BOTH BREASTS On: 07-Sep-2011 Intent ([id number])By: Alexy KEBEDE Maggie A Aerosol Treatment ([id number])By: Evert On: 08-Aug-2011 Intent Kimberley LOVE EKG (00736)By: Raiza Ortiz On: 06-Jun-2011 Intent Comments: ekg showed normal sinus rhythym, left axis, no acute st/t wave changes DXA, BONE DENSITY, AXIAL SKELETON On: 06-Jun-2011 Intent (21005)By: Maggie Tracey DO FLU VAC, SPLIT, >3 YEARS, INTRAMUSC On: 11-May-2011 Intent ([id number])By: Maricruz Rivera LPN Comments: Lot #[id number]//Site-left deltoidgiven by: Dani Rivera LPN B 12 [...] PNEUM VAC ADLT/IMUMNOSPR, SBC/INTRM On: 03-Jul-2010 Intent ([id number])By: Maggie Tracey DO Comments: Lot #[id number]-3/10/07Site-left deltoidDose- 0.5mlgiven by:GAL ADMINISTRATION OF PNEUMOCOCCAL On: 03-Jul-2010 Intent VACCINE (G0009)By: Magige Tracey DO MAMMOGRAM, SCREENING, BOTH BREASTS On: 03-Jul-2010 Intent ([id number])By: Maggie Tracey DO B 12 Injection, 1000 mcg (J3420)By: On: 20-Jun-2010 Intent Maggie Tracey DO Comments: Lot #[id number]-12/07Site-left deltoidDose-1 mlgiven by:CDH B 12 Injection, 1000 mcg (J3420)By: On: 10-May-2010 Intent Apoorva Calle Comments: Lot:[id number]:12/07Dose:1000mcg/1mlRoute:IMSite:right deltoid Given by: HAY Birch FLU VAC, SPLIT, >3 YEARS, INTRAMUSC On: 10-May-2010 Intent ([id number])By: Apoorva Calle Comments: Lot:[id number]:10/2010Dose:0.5mlRoute:IMSite:Left Deltoid Given by: HAY Birch ADMINISTRATION OF INFLUENZA VIRUS On: 10-May-2010 Intent VACCINE (G0008)By: Apoorva Calle Doppler Ultrasound OtherBy: Alexy KEBEDE, On: 12-Apr-2010 Intent Maggie A Comments: both legs stat- left leg swelling- call wet read Spirometry ([id number])By: Alexy KEBEDE, On: 12-Apr-2010 Intent Maggie A Comments: good effort and curve normal B 12 Injection, 1000 mcg (J3420)By: On: 05-Apr-2010 Intent Maggie Tracey DO Ultrasound - GallbladderBy: Alexy KEBEDE, On: 01-Feb-2010 Intent Maggie A IV Needle placement (35715)By: On: 10-Jan-2010 Intent Ana Guzman Comments: IV 22 gauge inserted in right antecubital on first attempt and 0.9 NSS running without difficulty-AW INFUSION, NORMAL SALINE SOLUTION , On: 10-Jan-2010 Intent 1000 CC (Special Coverage Instructions Apply. See MCM: 9) (J7030)By: Kimberley Loyd CNP THER/PROPH/DIAG INJ, SC/IM On: 10-Jan-2010 Intent ([id number])By: Kimberley Loyd CNP Radiology - Knee - Right - Weight On: 03-Jan-2010 Intent BearingBy: Maggie Tracey DO EKG (75126)By: Raiza Ortiz On: 03-Jan-2010 Intent Comments: ekg showed normal sinus rhythym, left axis, no acute st/t wave changes Aerosol Treatment ([id number])By: Evert On: 19-Oct-2009 Intent Kimberley LOVE Cartoid DopplerBy: Maggie Tracey DO On: 14-Jun-[address] - Brain/HeadBy: Maggie Tracey DO On: 06-Jun-2009 Intent MAMMOGRAM, SCREENING, BOTH BREASTS On: 06-Jun-2009 Intent ([id number])By: Maggie Tracey DO DXA, BONE DENSITY, AXIAL SKELETON On: 06-Jun-2009 Intent ([id number])By: Maggie Tracey DO FLU VAC, SPLIT, >3 YEARS, INTRAMUSC On: 12-May-2009 Intent (77260)By: Maricruz Rivera LPN Comments: Lot #[id number]-left deltoidgiven by:CDH ADMINISTRATION OF INFLUENZA VIRUS On: 12-May-2009 Intent VACCINE (G0008)By: Maricruz Rivera LPN Radiology - Hand - RightBy: Alexy KEBEDE, On: 26-Jan-2009 Intent Maggie A Radiology - Wrist - RightBy: Alexy On: 26-Jan-2009 Intent Maggie KEBEDE Comments: call wet read Pulse Oximetry (86703)By: Alexy KEBEDE, On: 27-Dec-2008 Intent Maggie A Comments: 98 Inhaler Demo (03020)By: Alexy KEBEDE, On: 27-Dec-2008 Intent Maggie A Spirometry ([id number])By: Alexy KEBEDE, On: 27-Dec-2008 Intent Maggie Nathaniel Comments: good effort and curve has small airways diminished Radiology - Chest- PA and LatBy: On: 27-Dec-2008 Intent Maggie Tracey DO Echo CompleteBy: Maggie Tracey DO A On: 08-Nov-2008 Intent Comments: elevated bp - increase patricia EKG (30380)By: Maggie Tracey DO A On: 08-Nov-2008 Intent Comments: ekg showed normal sinus rhythym, leftl axis, no acute st/t wave changes rsr unchanged Bio Z (71150)By: Maggie Traecy DO On: 08-Nov-2008 Intent Inhaler Demo (20847)By: Melanie KEBEDE, On: 02-Sep-2008 Intent Doris Jay DO Melanie DO, Doris Aerosol Treatment (05124)By: Melanie On: 02-Sep-2008 Intent Doris KEBEDE MelanieoDris driscoll DO Comments: less echoey -- better less cough Doris Navarro DO EKG (64364)By: Doris Navarro DO On: 16-Dec-2007 Intent Doris [...] LSN TRNK/ARM/LEG On: 09-Jul-2007 Intent 0.6-1.0 CM (83603)By: Kimberley Loyd CNP BIOPSY OF SKIN LESION, SINGLE On: 09-Jul-2007 Intent (21403)By: Kimberley Loyd CNP SHAVE SKIN LESION, TRUNK/ARM/LEG On: 02-Jul-2007 Intent (76331)By: Kimberley Loyd CNP BIOPSY OF SKIN LESION, SINGLE On: 02-Jul-2007 Intent (57306)By: Kimberley Loyd CNP B 12 Injection, 1000 mcg (J3420)By: On: 02-Jul-2007 Intent Lashonda Lee LPN FLU VAC, SPLIT, >3 YEARS, INTRAMUSC On: 04-Jun-2007 Intent ([id number])By: Jign Cabello RN Comments: Lot #: [id number] date: 01/03Amount given: 0.5 MLRoute: IMSite given: Left deltoidGiven by: Nathaniel Beal LPN IMMUNIZ ADMNIN, 1 VAC, SNGL/COMBO On: 04-Jun-2007 Intent (22026)By: Jing Cabello RN B 12 Injection, 1000 [...] DO, Doris Melanie DO, Doris IV Infusion (59698)By: Melanie DO, On: 18-Oct-2006 Intent Doris Melanie DO, Doris Melanie DO, Doris EKG (26473)By: Melanie DO, Doris On: 10-Oct-2006 Intent Melanie [...] Pending Melanie DO, Doris Melanie DO, Doris Mealnie DO, Doris Vitamin B-12 1000 MCG/ML Injection [...] 17-Feb-2016 Pending Melanie DO, Doris Melanie DO, Drois Mleanie DO, Doris Vitamin B-12 1000 MCG/ML Injection [...] The patient does have 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 Other providers contributing to [...] 13 steps at home. I was at [place] for 3 days in ICU I broke [...] The patient does have 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 The patient has noticed [...] and she off pravastatin and went to [place] and now on 5 mg of crestor- and tolerated she got leg pain and weakness on pravachol- - she got good [facility] on stroke and vascular in [place]- --bp is good and cough gone and [...] The patient does have 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 The damián ent has [...] since going to the urgent care at [facility]- on atb yet but will finish [...] feels good- bp is great- went to [facility] for vascular check and said ok- [...] stroke sx mood controlled has followup in [facility] for vascular issues soon- no chest pain [...] The patient does have 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 The patient has noticed [...] not home- no gerd - went to [place] for artery checks and doing ok there- [...] laboratory test results: she went back to [facility] Saw Dr Shruthi Quinones- ??head of stroke- [...] ER visit: note: (stroke she was at [facility] x 5days released on saturday05/22/12 to 05/27/12). The patient feels well with minor complaints, has decreased energy End: 29-May-2012 14:12 level and is sleeping well. Patient has been compliant with instructions. Current medication use: compliant with dosing regimen. Patient sleeps 7 hours per night. Nutrition: balanced diet and supplement al vitamins. Note for Follow up hospital: [facility] Diagnosis: CVA (434.91), Benign essential hypertension (401.1), Diabetes type II,controlled no comp (250.00), Hypothyroidism (244.9), Carotid stenosis (433.10) [facility] Office Visit On: 22-May-2012 10:33 Encounter Reason: Follow up hospital - Reason for ER visit: note: (TIA. ??Patient was seen by [facility] ER x 3 times last week and then sent to [facility] for psych eval.). 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
--- OUTSIDE RECORDS SUMMARY | 2018-08-20 04:49 | XMS RPT_ITS | Continuity of Care Document ---
:1940 Author Organization [facility] Address [address] [place] [address] Phone Care Team Providers Name Role Phone Doris Navarro DO Unavailable Camacho Serrano Unavailable Flakito Morales Unavailable [facility], [facility] Unavailable Marcello Stein Unavailable Sal Urrutia [...] artery stenosis (I65.23, 433.10) Comments: goes to [facility] yearly to follow Status: Active BMI [...] related to fatty liver -- did nutrition milieu counselor and wt loss / metformin and [...] Start : 26-Sep-2016 End : 12-Dec-2017 Inactive Orange 5-325 MG Oral Tablet 1 q 4hrs [...] : 07-Sep-2014 End : 13-Sep-2014 Discontinued ERGOCALCIFEROL, 40008BVUN (Oral Capsule) 1 (one) Capsule q week [...] End : 23-Jun-2012 Discontinued VITAMIN D (ERGOCALCIFEROL), 78798LUHJ (Oral Capsule) 1 Capsule q week for 0 days Quantity: 12 {Capsule} Refills: 2 Ordered:19-Aug-2015 Raiza Ortiz Start : 07-Apr-2013 End : 19-Aug-2015 Discontinued VITAMIN D, 17855YDSI (Oral Capsule) 1 (one) Capsule q week [...] Department Summary Result: Comments: See Note; NOTES: [facility] Medical Records Department [address] [place] [address] Emergency Department Summary 05/14/18 0908 MR#: [id number] Acct: [id number] Name: MARICRUZ GRIGSBY Rep #: [id number] : 1940 78 From: Zee Denise MD [...] family doctors she is re ferred to [facility] for the shoulder injury and she will return for change in symptoms and she is comfortable with this plan Treatment Plan: [] Disposition: [] Stable home Impression: [] Fall left rib fracture, left shoulder injury This note was generated with Volveation software. It may contain incorrect words, spelling, [...] your Primary Care Provider. Call [facility] ([phone]) or report to the closest Emergency Room. Call 911 if necessary. 05/14/18 1530 <Electronically signed by Zee Denise MD> Date Zee Denise MD Cosigner Signatur e (If Indicated): Date CC: Doris Navarro DO 14-May-2018 Discharge Instruction Result: Comments: See Note; NOTES: [facility] Medical Records Department [address] [place] [address] Discharge Instruction 05/14/18 1133 MR#: [id number] Acct: [id number] Name: CLIFFORD HOBBSMARICRUZ THORNE Rep #: [id number] : 1940 78 From: Zee Denise MD PCP: Doris Navarro DO Status: REG ER ED Disposition - Plan for ED Patient: Chief Complaint: Fall Instructions: ED M echanical Fall, ED Fx Rib, ED Sprain Shoulder, ED Sling Prescriptions: Hydrocodone Bitart/Apap 5-325 [Orange 5MG-325MG] 1 tab PO Q6H PRN PRN 3 Days #10 tab PRN Reason: Pain Referrals: Doris Navarro DO [Primary Care Provider] - What to do if you have Problems For any increased pain, shortness of breath, bleeding, nausea or vomiting, chest pain, or any unexpected problems, contact your Primary Car e Provider. Call [facility] ([phone]) or report to the closest Emergency Room. Call 911 if necessary. 05/14/18 1134 <Electronically signed by Zee Denise MD> Date ___ Zee Denise MD Cosigner Signature (If Indicated): Date CC: Doris Navarro DO 14-May-2018 Chest PA and Lateral Result: Comments: See Note; NOTES: [facility] Imaging Services [address] [place] [address] Chest PA and Lateral MR#: [id number] Acct: [id number] Name: MARICRUZ GRIGSBY Rep #: [id number] : 1940 F 78 From: Teo Wayne MD PCP: Doris Navarro DO Status: REG ER Study: Chest PA and Lateral Date of Exam: 05/14/18 Exam# [id number] Ordering Dr: Zee Denise MD STUDY: X-RAY [...] No acute abnormality is seen. Electronically Signed: eTo Wayne MD at 10:11 EDT Tel [phone], Arden Reed support , CC: MD Sonam Denise; Doris Navarro DO Computed Tomography Scanner Operator: Signed 14-May-2018 Elbow min 3 Views Result: Comments: See Note; NOTES: [facility] Imaging Services [address] [place] [address] Elbow min 3 Views MR#: [id number] Acct: [id number] Name: MARICRUZ GRIGSBY Rep #: [id number] : 1940 F 78 From: Teo Wayne MD PCP: Doris Navarro DO Status: [facility] Study: Elbow min 3 Views Date of Exam: 05/14/18 Exam# [id number] Ordering Dr: Zee Denise MD STUD Y: [...] Teo Wayne MD at 10:12 EDT Tel [phone], Service support , CC: MD Sonam Denise; Doris Navarro DO Computed Tomography Scanner Operator: Signed 14-May-2018 Shoulder min 2 Views Result: Comments: See Note; NOTES: [facility] Imaging Services [address] [place] [address] Shoulder min 2 Views MR#: [id number] Acct: [id number] Name: MARICRUZ GRIGSBY Rep #: [id number] : 1940 F 78 From: Teo Wayne MD PCP: Doris Navarro DO Status: REG ER Study: Shoulder min 2 Views Date of Exam: 05/14/18 Exam# [id number] Ordering Dr: Zee Denise MD STUDY: X-RAY [...] Wayne MD at 11:02 EDT Tel [phone], Service support , CC: MD Sonam Denise; Doris Navarro DO Computed Tomography Scanner Operator: Signed 06-Feb-2018 History and Physical Exam Result: Comments: See Note; NOTES: [facility] Medical Records Department [address] [place] [address] History and Physical 02/06/182050 MR#: [id number] Acct: [id number] Name: MARICRUZ GRIGSBY Rep #: [id number] : 1940 77 From: María Barnes MD [...] cholecystectomy Psychiatric History: No pertinent psych hx ORAL SURGERY PHYSICIAN History: No pertinent ORAL SURGERY PHYSICIAN history Lives: Spouse/ Significant Other Smoking Status: [...] Subcu heparin. This note was generated with Pristones software. It may contain incorrect words, spelling, and punctuation that were not noted in checking the note before signing. Code Visit OBSV E AND M: 68593 Initial observation care L3 07/12/08 05 2108 <Electronically signed by María Barnes MD> Date María Barnes MD Cosigner Signature: Date (if applicable) CC: María Barnes; Doris Navarro DO Signed 06-Feb-2018 Brain/Head without Contrast Result: Comments: See Note; NOTES: [facility] Imaging Services [address] [place] [address] Brain/Head without Contrast MR#: [id number] Acct: [id number] Name: MARICRUZ GRIGSBY Rep #: [id number] : 1940 F 77 From: Renata Lee MD PCP: Doris Navarro DO Status: REG Study: Brain/Head without Contrast Date of Exam: 02/06/18 Exam# [id number] Ordering Dr: Cameron Marte MD STUDY: CT [...] , CC: Doris Navarro DO; Jered Marte Computed Tomography Scanner Operator: Signed 06-Feb-2018 Chest 1 View Result: Comments: See Note; NOTES: [facility] Imaging Services [address] [place] [address] Chest 1 View MR#: [id number] Acct: [id number] Name: MARICRUZ GRIGSBY Rep #: [id number] : 1940 F 77 From: Renata Lee MD PCP: Doris Navarro DO Status: [facility] ER Study: Chest 1 View Date of Exam: 02/06/18 Exam# [id number] Ordering Dr: Jered Marte MD STUDY: X-RAY [...] , CC: Doris Navarro DO; Jered Marte Computed Tomography Scanner Operator: Signed 25-Nov-2017 Liver Result: Comments: See Note; NOTES: [facility] Imaging Services [address] [place] [address] Liver MR#: [id number] Acct: [id number] Name: MARICRUZ GRIGSBY Stuart Rep #: [id number] : 1940 F 77 From: Mack Hand MD PCP: Doris Navarro DO Status: REG CLI Study: Liver Date of Exam: 11/25/17 Exam# [id number] Ordering Dr: Doris Navarro DO STUDY: ABDOMINAL [...] MD at 12:34 EDT , Service support [phone], CC: Doris Navarro DO Computed Tomography Scanner Operator: Signed 29-Oct-2017 Hip 2-3 Views with Pelvis Result: Comments: See Note; NOTES: [facility] Imaging Services [address] [place] [address] Hip 2-3 Views with Pelvis MR#: [id number] Acct: [id number] Name: MARICRUZ GRIGSBY #: [id number] : 1940 F 77 From: Benji Finch PCP: Doris Navarro DO Status: REG CLI Study: Hip 2-3 Views with Pelvis Date of Exam: 10/29/17 Exam# [id number] Ordering Dr: Thelma Sofia VESSEL TRAFFIC OFFICER- C STUDY: X-RAY - PELVIS AND [...] , CC: QUINN Sofia; Doris Navarro DO Computed Tomography Scanner Operator: Signed 27-Aug-2017 12 Lead Electrocardiogram Result: Comments: See Note; NOTES: [facility] Cardiovascular Services [address] [place] [address] 12 Lead EKG 08/24/17 1719 MR#: [id number] Acct: [id number] Name: PORTIA GRIGSBY Rep #: [id number] : 1940 77 From: Maurilio Meraz MD [...] C onfirmed by SOLEDAD STREETER, MAURILIO ([id number]), associate entertainment editor STACY CARTER ([id number]) on 08/27/2017 10:37:34 AM Referred By: EITAN Confirmed By:MAURILIO MERAZ MD 08/27/17 1037 Date Maurilio Meraz MD CC: Doris Melanie KEBEDE Signed 25-Aug-2017 Emergency Department Summary Result: Comments: See Note; NOTES: [facility] Medical Records Department [address] [place] [address] Emergency Department Summary 08/24/17 1709 MR#: [id number] Acct: [id number] Name: MARICRUZ GRIGSBY Rep #: [id number] : 1940 77 From: Zee Denise MD [...] at home. She has no history of MT PE or DVT she does have history [...] be altered This note was generated with Miappi dictation software. It may contain incorrect words, [...] your Primary Care Provider. Call [facility] ([phone]) or report to the closest Emergency Room. Call 911 if necessary. 08/25/17 0001 <Electronically sig radha by Zee Denise MD> Date Zee Denise MD Cosigner Signature (If Indicated): Date CC: Doris Navarro DO 24-Aug-2017 Discharge Instruction Result: Comments: See Note; NOTES: [facility] Medical Records Department [address] [place] [address] Discharge Instruction 08/24/17 1820 MR#: [id number] Acct: [id number] Name: MARICRUZ GRIGSBY Rep #: [id number] : 1940 77 From: Zee Denise MD [...] problems, contact your Primary Care Provider. Call [facility] Registry ([phone]) or report to the closest [facility] Room. Call 911 if necessary. 08/24/17 1821 <Electronically signed by Zee Denise MD> Date Zee Denise MD Cosign er Signature (If Indicated): Date CC: Doris Navarro DO 24-Aug-2017 Chest PA and Lateral Result: Comments: See Note; NOTES: [facility] Imaging Services [address] [place] [address] Chest PA and Lateral MR#: [id number] Acct: [id number] Name: MARICRUZ GRIGSBY Stuart Rep #: [id number] : 1940 F 77 From: Stacy Tapia MD PCP: Doris Navarro DO Status: REG ER Study: Chest PA and Lateral Date of Exam: 08/24/17 Exam# [id number] Ordering Dr: Zee Denise MD XR Chest [...] CC: MD Sonam Denise; Doris Navarro DO Computed Tomography Scanner Operator: Signed 07-Aug-2017 Chest PA and Lateral Result: Comments: See Note; NOTES: [facility] Imaging Services [address] [place] [address] Chest PA and Lateral MR#: [id number] Acct: [id number] Name: CLIFFORD MARICRUZ CRUZ Rep #: [id number] : 1940 F 77 From: Teo Wayne MD PCP: Doris Navarro DO Status: REG CLI Study: Chest PA and Lateral Date of Exam: 08/07/17 Exam# [id number] Ordering Dr: Dorsi Navarro DO STUDY: X-RAY CHEST REASON FOR [...] Logan i, MD at 13:49 EST Tel [phone], Service support , CC: Doris Navarro DO Computed Tomography Scanner Operator: Signed 20-Nov-2016 Operative Report Result: Comments: See Note; NOTES: [facility] Medical Records Department [address] [place] [address] Operative Report 11/14/16 0736 MR#: [id number] Acct: [id number] Name: MARICRUZ BREAUX Rep #: [id number] : 1940 76 From: Liza Duron DO PCP: Doris Navarro DO Status: [facility] Y Location: [facility] Report of Operation Date of Procedure: 11/14/16 Pre-Operative Diagnosi s: Right third and fourth trigger fingers Post-Operative Diagnosis: Name Surgery/Procedure Performed:: Right hand third and fourth A1 shannan release Type of Anesthesia:: Block,[place] Anesthesiologist: Fox Michaels Estimated Blood Loss (mL): [...] Dragon disclaimer This note was generated with [employer] dictation software. It may contain incorrect words, spellin g, and punctuation that were not noted in checking the note before signing. 11/20/16 1231 <Electronically signed by Liza Duron DO> Date Liza Duron DO CC: Liza Duron DO; Doris Navarro DO Signed 16-Nov-2016 Oncology Progress Note Result: Comments: See Note; NOTES: [facility] Medical Records Department [address] [facility] [place] [place] [address] Oncology Progress Note MR#: [id number] Acct: [id number] Name: PORTIA GRIGSBY Rep #: [id number] : 1940 76 From: Sal Urrutia MD [...] level. Sal Urrutia MD T: NTS JOB: [id number] 11/16/16 0850 <Electronically signed by Sal Urrutia MD> Date Sal Urrutia MD Cosigner Signature (If Indicated): Date CC: Date Dictated: 11/08/16 1305 Date Transcribed: 11/08/16 1305 Computed Tomography Scanner Operator: Signed 14-Nov-2016 Discharge Instruction Result: Comments: See Note; NOTES: [facility] Medical Records Department [address] [place] [address] Instructions for Home/Discharge Instructions 11/14/16 0735 MR#: [id number] Acct: [id number] Name: MARICRUZ GRIGSBY Rep #: [id number] : 1940 76 From: iLza Duron DO PCP: Doris Navarro DO Status: [...] mg PO DAILY 11/09/16 Hydrocodone Bitart/Apap 5-325 [Orange 5MG- 325MG] 1 - 2 tablet PO Q6H PRN PRN #20 tablet 11/14/16 The following prescriptions were given: Hydrocodone Bitart/Apap 5- 325 [Orange 5MG-325MG] 1 - 2 tablet PO Q6H PRN PRN #20 tablet PRN Reason: Pain Primary Care Physician: Doris Navarro DO [Primary Care Provider] - Please Follow Up With: Liza Duron [phone] 11/14/16 0736 <Electronically signed by Liza Duron DO> Date Liza Duron DO CC: Doris Navarro DO 20-Jul-2016 Chest PA and Lateral Result: Comments: See Note; NOTES: [facility] Imaging Services [address] [place] [address] Verdana 4d Chest PA and Lateral MR#: [id number] Acct: [id number] Name: JAQUAN GRIGSBY Rep #: [id number] : 1940 F 76 From: Mack Hand MD PCP: Doris Navarro DO Status: REG CLI Study: Chest PA and Lateral Date of Exam: 07/20/16 Exam# [id number] Ordering Dr: Doris Navarro DO STUDY: X-RAY [...] at 12:24 EST Tel , Service support [phone], CC: Doris Navarro DO Computed Tomography Scanner Operator: Signed 26-Jan-2016 Echocardiogram Complete Result: Comments: See Note; NOTES: [facility] Cardiovascular Services [address] [place] [address] Echo Complete 01/26/16 1008 MR#: [id number] Acct: [id number] Name: MARICRUZ PARMAR Rep #: [id number] : 1940 75 From: Mack Dickerson MD Attending Dr: Maggie Tracey DO Status: REG CLI Ordering Dr: Maggie Tracey DO Date: 01/26/16 Location: [facility] Sex: F C Admitt ed: Reason For [...] Physician: Maggie Tracey Performed By: Sharyn Bear [facility] 01/26/161611 Date ___ Mack Dickerson MD CC: Maggie Tracey DO Date Dictated: 01/26/16 1008 Date Transcribed: 01/26/161611 Computed Tomography Scanner Operator: Signed 05-Dec-2015 Chest 1 View (Portable) Result: Comments: See Note; NOTES: [facility] Imaging Services [address] [place] [address] Verdana 4d Chest 1 View (Portable) MR#: [id number] Acct: [id number] Name: MARICRUZ PEÑALOZA Rep #: [id number] : 1940 F 75 From: Yari Garcia MD PCP: Maggie Tracey DO Status: PRE ER Study: Chest 1 View (Portable) Date of Exam: 12/05/15 Exam# [id number] Ordering Dr: Johnnie Baez MD STUDY: X-RAY [...] at 16:44 EDT Tel , Service support [phone], RAD/Chest 1 V iew (Portable) IMPRESSION: Underexpansion of the lungs. Mild to moderate cardiomegaly. Electronically Signed: Yari aGrcia MD at 16:44 EDT Tel , Service support , CC: Maggie Tracey DO; Johnnie Baez MD Computed Tomography Scanner Operator: Signed 05-Dec-2015 Spirometry (68769) Comments: good effort and curvenormal Result: 05-Dec-2015 EKG (11124) Comments: ekg showed normal sinus rhythym, normal axis, no acute st/t wave changes Result: [MEASUREMENTS ANALYSIS] Date of Test: 12/05/2015 14:27:41; Heart Rate: 93; WV Interval: 202; QRS: 96; QT Interval: 352; Corrected QT Interval (QTc): 409; P Wave Barlow: 48; QRS Wave Barlow: -26; T Wave Barlow : 55; Blood Pressure: 134/64 [ECG DIAGNOSTIC STATEMENTS] Date of Test: 12/05/2015 14:27:41; Summary: Sinus Rhythm WITHIN NORMAL LIMITS 21-Sep-2015 12 Lead Electrocardiogram Result: Comments: See Note; NOTES: [facility] Cardiovascular Services [address] [place] [address] 12 Lead EKG 09/19/15 0908 MR#: [id number] Acct: [id number] Name: MARICRUZ VIGIL Rep #: [id number] : 1940 75 From: Maurilio Meraz MD [...] wave progression Confirmed by SOLEDAD STREETER, MAURILIO ([id number]), associate entertainment editor STACY CARTER ([id number]) on 09/21/2015 11:27:40 AM Referred By: JE Confirmed By:MAURILIO MERAZ MD 1127 Date Maurilio Meraz MD CC: Maggie Tracey DO Date Dictated: 09/19/15907 Date Transcribed: 09/19/15907 Computed Tomography Scanner Operator: Signed 19-Sep-2015 Discharge Instruction Result: Comments: See Note; NOTES: [facility] Medical Records Department [address] [place] [address] Discharge Instruction 09/19/15 1020 MR#: [id number] Acct: [id number] Name: MARICRUZ GRIGSBY Rep #: [id number] : 1940 75 From: Johnnie Baez MD PCP: Maggie Tarcey DO Status: DEP ER ED Disposition - [...] chest pain, or any unexpected problems, contact [facility] doctor. Call [facility] ([phone]) or report to the closest Emergency Room. Call 911 if necessary. 09/19/15 1755 <Electronically signed by Johnnie Baez MD> Date __ Johnnie Baez MD Cosigner Signature (If Indicated): Date CC: Maggie Tracey DO 19-Sep-2015 Emergency Department Summary Result: Comments: See Note; NOTES: [facility] Medical Records Department [address] [facility] [place] [address] Emergency Department Summary MR#: [id number] Acct: [id number] Name: MARICRUZ GRIGSBY Rep #: [id number] : 1940 75 From: Johnnie Baez MD [...] tachycardia at 112. No acute signs of MT or ischemia. White count 11.4, H and [...] C: Maggie Tracey DO T: CHERI JOB: [id number] 09/19/15 3703 <Electronically signed by Johnnie Baez MD& amp;#62; Date Johnnie Baez MD Cosigner Signature (If Indicated): Date CC: Maggie Tracey DO Date Dictated: 09/19/15 1019 Date Transcribed: 09/19/151018 Computed Tomography Scanner Operator: Signed 07-Sep-2015 Chest PA and Lateral Result: Comments: See Note; NOTES: [facility] Imaging Services [address] [place] [address] Verdana 4d Chest PA and Lateral MR#: [id number] Acct: [id number] Name: MARICRUZ HADLEY Rep #: [id number] : 1940 F 75 From: Kali Raymundo MD PCP: Maggie Tracey DO Status: REG CLI Study: Chest PA and Lateral Date of Exam: 09/07/15 Exam# [id number] Ordering Dr: Maggie Irwin DO STUDY: X-RAY [...] FACR at 11:41 EST , Service support [phone], RAD/Chest PA and Lateral IMPRESSION: No significant changes. Stable moderate cardiomegaly. Bilateral interstitial changes more prominent on the right. Wanda velazquez Signed: Kali Raymundo MD, FACR at 11:41 EST , Service support [phone], CC: Maggie Tracey DO Computed Tomography Scanner Operator: Signed 07-Sep-2015 Spirometry (15825) Comments: good effort and curve normal Result: 24-Mar-2015 PT Discharge Summary Result: Comments: See Note; NOTES: [facility] [address] [place] [address] Fax REHABILITATION SERVICES DISCHARGE SUMMARY MR#: [id number] Acct: [id number] Name: MARICRUZ GRIGSBY Rep #: [id number] : 1940 75 From: Yuni Clark Referring [...] discharge. Yuni Clark, PT T: NTS JOB: [id number] <Electronically signed by Yuni Clark > 03/24/15 1227 CC: Maggie Tracey DO Signed 17-Feb-2015 Inital Evaluation - PT Result: Comments: See Note; NOTES: [facility] [address] [place] [address] Fax REHABILITATION SERVICES INITIAL EVALUATION MR#: [id number] Acct: [id number] Name: MARICRUZ GRIGSBY Rep #: [id number] : 1940 75 From: Yuni Clark Referring Dr.: Maggie Tracey DO Status: REG RCR Insurance : MEDICARE PART A B Eval Date: [facility] DATE OF SERVICE: 02/16/2015 SUBJECTIVE: This patient [...] care. Yuni Clark, PT T: NTS JOB: [id number] <Electronically signed by Yuni Clark > 02/17/15 1011 CC: Signed For Medicare only, by seng yao this I certify the plan of care. Physicians Signature Date 08-Feb-2015 L/S Spine Min 4 Views Result: Comments: See Note; NOTES: [facility] Imaging Services [address] [place] [address] Radiology Report MR#: [id number] Acct: [id number] Name: CLIFFORD HOBBSMARICRUZ THORNE Rep #: [id number] : 1940 F 74 From: Teo Wayne MD PCP: Maggie Tracey DO Status: REG CLI Study: L/S Spine Min 4 Views Date of Exam: 02/08/15 Exam# [id number] Ordering Dr: Maggie Tracey DO STUDY: X-RAY [...] Wayne MD a t 12:30 EDT Tel [phone], Service support [phone], RAD/L/S Spine Min 4 Views IMPRESSION: Degenerative changes of the spine, as detailed above. Electro nically Signed: Teo Wayne MD at 12:30 EDT Tel [phone], Service support [phone], CC: Maggie Tracey DO Computed Tomography Scanner Operator: Signed 15-Nov-2014 Thyroid Result: Comments: See Note; NOTES: [facility] Imaging Services [address] [place] [address] Ultrasound Report MR#: [id number] Acct: [id number] Name: MARICRUZ GRIGSBY Rep #: [id number] : 1940 F 74 From: Julián Trivedi DO PCP: Maggie Tracey DO Status: REG CLI Study: Thyroid Date of Exam: 11/15/14 Exam# [id number] Ordering Dr: Maggie Tracey DO STUDY: THYROID [...] Julián Trivedi DO at 16:51 EDT Tel [phone], Service support [phone], Fax CC: Maggie Tracey DO Computed Tomography Scanner Operator: Signed 13-Sep-2014 Chest PA and Lateral Result: Comments: See Note; NOTES: [facility] Imaging Services [address] [place] [address] Radiology Report MR#: [id number] Acct: [id number] Name: MARICRUZ GRIGSBY Rep #: [id number] : 1940 F 74 From: Donato Abdi MD PCP: Maggie Tracey DO Status: REG CLI Study: Chest PA and Lateral Date of Exam: 09/13/14 Exam# [id number] Ordering Dr: Maggie Tracey DO STUDY: X [...] at 12:01 EST Tel , Service support [phone], CC: Maggie Tracey DO Computed Tomography Scanner Operator: Signed 15-Jul-2014 Chest PA and Lateral Result: Comments: See Note; NOTES: [facility] Imaging Services [address] [place] [address] Radiology Report MR#: [id number] Acct: [id number] Name: CLIFFORD CRUZJAQUANMARICRUZ Rep #: [id number] : 1940 F 74 From: Teo Wayne MD PCP: Maggie Tracey DO Status: REG CLI Study: Chest PA and Lateral Date of Exam: 07/15/14 Exam# [id number] Ordering Dr: Maggie Tracey DO SANDI DY: [...] Teo Wayne MD at 9:42 EST Tel [phone], Service support [phone], CC: Maggie Tracey DO Computed Tomography Scanner Operator: Signed 10-May-2014 Bilat Scrn Digital & CAD Result: Comments: See Note; NOTES: [facility] Imaging Services [address] [place] [address] Breast Imaging Report MR#: [id number] Acct: [id number] Name: JOSE AMARICRUZ GIANG ep #: [id number] : 1940 F 74 From: Gene Phillips PCP: Maggie Tracey DO Status: REG CLI Exam# [id number] Ordering Dr: Maggie Tracey DO MAMMOGRAPHY - [...] these results will be sent to the [facility] ient by the facility within 30 days. Approximately 10% of breast cancers are not detected by mammography. A normal mammogram should not delay biopsy of a clinically suspicious abnormality. Electro nically Signed: Jessenia Phillips MD at 19:48 EDT Tel , Service support [phone], CC: Maggie Tracey DO Computed Tomography Scanner Operator: Signed 10-Sep-2013 Dexa Bone Density Study (HP) Result: Comments: See Note; NOTES: [facility] Imaging Services [address] [place] [address] Bone Density Report MR#: [id number] Acct: [id number] Name: MARICRUZ GRIGSBY Rep #: [id number] : 1940 F 73 From: Teo Wayne MD PCP: Maggie Tracey DO Status: REG CLI Study: Dexa Bone Density Study (HP) Date of Exam: 09/10/13 Exam# [id number] Ordering Dr: Maggie Tracey DO STUDY: DUAL [...] M.D. at 11:04 EST , Service support [phone], CC: Maggie Tracey DO Computed Tomography Scanner Operator: Signed Immunization Name Dates Details Influenza (3 years and up) on: 04-Jun-2007 Comments: Lot #: [id number] date: 01/03Amount given: 0.5 MLRoute: IMSite given: Left deltoidGiven by: Nathaniel Beal LPN Influenza (3 years and up) on: 12-May-2009 Comments: Lot #[id number]-left deltoidgiven by:CDH Family History Unknown Family Member Name Dates Details Cancer Status: Active Diabetes Mellitus Status: Active Father Comments: MT, hypercholesterolemia Status: Active First Degree Relatives Comments: [...] kg/m2 Body Surface Area Calculated 2.06 m2 89-Wxk-859300:15 Pulse 81 /min Comments: Pattern: Regular Respiration [...] kg/m2 Body Surface Area Calculated 2.06 m2 32-Dsq-480339:32 Temperature 97.6 f Comments: Method: Temporal Pulse [...] kg/m2 Body Surface Area Calculated 2.06 m2 5-Hwv-600649:26 Comments: orthostatic bp assessment: 12:10pmlying- 170/90 76hrsitting- [...] administered 81mg asa orally at this time also-[facility] BP Systolic 156 mm[Hg] Comments: Patient Position: [...] Value Details :50 Rapid Strep Test, Office (08612) Rapid Strep Test, Office Negative (Normal) :58 TSH (96364) Comments: PATIENT NOT FASTINGPERFORMED BY: [facility]6370 [facility] [id number] TSH 5.590 {uIU/mL} (Abnormal) Range: 0.450-4.500 :58 T4, FREE (THYROXINE) (79246) Comments: PATIENT NOT FASTINGPERFORMED BY: Cardeas PharmaSaint Francis Medical CenterWfuuph5316 [facility] [id number] T4,Free(Direct) 1.81 ng/dL (Abnormal) Range: 0.82-1.77 :58 T3, FREE (TRIDOTHYRONINE) (50552) Comments: PATIENT NOT FASTINGPERFORMED BY: [facility]6370 [facility] [id number] Triiodothyronine (T3), Free 2.1 pg/mL (Normal) Range: [...] Muscle ABS Comments: Comments: ANTI-LIVER/KIDNEY MICRO AB [id number] SER/[facility] (refer to report for specific site)refer [...] MELI-DIRECT Negative (Normal) Comments: Performed at: - [facility] [id number] Director: Constantine Christianson PhD, Phone: [phone] :[phone] Ceruloplasmin Comments: Comments: ANTI-LIVER/KIDNEY MICRO AB [id number] SER/[facility] (refer to report for specific site)refer to report for address and phone number CERULOPLAS 1560 22.0 mg/dL (Normal) Range: 19.0-39.0 :44 CMV Acute Antibody IgM Comments: Comments: ANTI-LIVER/KIDNEY MICRO AB [id number] SER/[facility] (refer to report for specific site)refer to report for address and phone number CMVIgM AB < 30.0 AU/mL (Normal) Range: 0.0-29.9 Comments: Negative <30.0 Equivocal 30.0 - 34.9 Positive >34.9A positive result is generally indicative of acuteinfection, reactivation or persistent IgM production. :44 Ferritin Comments: Comments: ANTI-LIVER/KIDNEY MICRO AB [id number] SER/[facility] Uuxaepqvkg4854 [place], [address] FERRITIN 236 ng/mL (Normal) Range: 8-252 :44 Free T3 Comments: Comments: ANTI-LIVER/KIDNEY MICRO AB [id number] SER/[facility] Cjzivppfif0086 [place], [address] FREE T3 1.6 pg/mL (Abnormal) Range: 2.18-3.98 :44 GGTP 64 U/L (Abnormal) Comments: Comments: ANTI-LIVER/KIDNEY MICRO AB [id number] SER/[facility] Omclfuhmwd[address] [place], [address] Range: 5-55 :44 Hepatitis Panel Acute Comments: Comments: ANTI-LIVER/KIDNEY MICRO AB [id number] [facility] (refer to report for specific site)refer to report for address and phone number HEP C AB <0.1 {s/co_ratio} (Normal) Range: 0.0-0.9 Comments: Negative: < 0.8 Indeterminate: 0.8 - 0.9 Positive: > 0.9 The CDC recommends that a positive HCV antibody result be followed up with a HCV Nucleic Acid Amplification test (055528). HB CORE [id number] Negative (Normal) HB SURF AG Negative (Normal) HEP A IgM 6734 Negative (Normal) :44 Liver Profile Comments: Comments: ANTI-LIVER/KIDNEY MICRO AB [id number] SER/[facility] Rcezioizap[address] [place], [address] D BILI 0.17 mg/dL (Normal) Range: 0.00-0.30 T BILI 0.60 mg/dL (Normal) Range: 0.20-1.00 ALT 48 U/L (Normal) Range: 13-56 ALK P 93 U/L (Normal) Range: 45-117 AST 43 U/L (Abnormal) Range: 15-37 GLOB 3.5 g/dL (Normal) Range: 2.2-4.2 ALB 3.7 g/dL (Normal) Range: 3.2-5.0 T PROT 7.2 g/dL (Normal) Range: 6.4-8.2 :44 Miscellaneous Lab Procedure Comments: Comments: ANTI-LIVER/KIDNEY MICRO AB [id number] SER/RFTest(s) Ordered: ANTI-LIVER/KIDNEY MICROS AB [id number] SER/[facility] Admelervlc1182 [place], [address] MISC Comments: TEST RESULT UNITS REF INTERVALLiver- Kidney Microsomal Ab <1.0 Units 0.0 - 20.0 Negative 0.0 - 20.0 LAB (Normal) Equivocal 20.1 - 24.9 Positive >24.9LKM type 1 antibodies are detected in patients withautoimmune hepatitis type 2 and in up to 8% ofpatients wi TEST th chronic HCV infection. [facility]. ORIGINAL REPORT ON FILE IN LAB CONTAINS ADDITIONAL TEST SITE INFORMATION. :44 T4 Free Direct Comments: Comments: ANTI-LIVER/KIDNEY MICRO AB [id number] SER/[facility] [address] [place] [address], [id number] T4 FREE DIRECT 1.06 ng/dL (Normal) Range: 0.76-1.46 :44 Thyroid Stim Hormone (TSH) Comments: Comments: ANTI-LIVER/KIDNEY MICRO AB [id number] [facility] Ppoummuhok2514 [facility] [place], [address] TSH 16.40 {uIU/mL} (Abnormal) Range: 0.358-3.74 :44 Transferrin Comments: Comments: ANTI-LIVER/KIDNEY MICRO AB [id number] SER/[facility] (refer to report for specific site)refer to report for address and phone number TRANSFERRN 9791 250 mg/dL (Normal) Range: 200-370 Comments: Performed at: [address] [id number] Director: Constantine Christianson PhD, Phone: [phone] 18-Noa-485424:16 Bedside Glucose Comments: [facility]Point of [address] [address] BEDSIDE GLU 152 mg/dL (Abnormal) Range: 70-110 Comments: MANAGEMENT OF PATIENT CARE PER NURSING PROTOCOL 02-Trp-840775:45 Basic Metabolic Profile (BMP) Comments: [facility] G[address]ngilw[address] [place], [place], [address] GAP 8 (Normal) Range: 5-15 CO2 28.0 [...] A.D.A. criteria.Please note revised GLUCOSE reference range xmxzvbwya67/02/2018. 03-Tlh-249613:45 CBC W/Diff, Automated Comments: [facility] K[address]ajshbmf[address] [place], [place], [address] Absolute Lymph 1.73 {X10_3/ul} (Normal) Range: 0.83-4.51 [...] 4.2-5.4 WBC 9.5 K/mm3 (Normal) Range: 4.4-11.0 95-Lwq-626285:45 Partial Thromboplast Time Comments: [facility] Ppflkcmcja7801 [facility] [place], [address] PTT 33.0 s (Normal) Range: 24.1-36.2 88-Zib-942879:45 Prothrombin Time w/INR Comments: [facility] Zngmrarlul5991 [facility] [place], [address] INR 0.9 (Normal) PROTIME 12.5 s (Normal) Range: 11.7-14.9 56-Qus-072799:45 Troponin-I Comments: [facility] Zgylxeqbke0608 [facility] [place], [address] TROPONIN-I < 0.015 ng/mL Comments: TROPONIN-I EXPECTED VALUES <0.045 Negative 0.045 - 0.590 Consistent with Cardiac Damage > OR = 0.600 Critical Value Not every elevated troponin is indicative of MT. T (Normal) hesevalues should be used with clinical judgement in examiningthe patient's clinical picture for diagnosis. To establisha diagnosis of MT versus myocardial injury, there must be ademonstrated rise and/ or fall in the troponin values, inaddition to ischemic symptoms, EKG changes, new regionalwall motion abnormality, and/or angiographical evidence. PLEASE NOTE: REFERENCE RANGES EDITED 17 Liver-Kidney <1.0 {Units} Comments: PATIENT NOT FASTINGPERFORMED BY: [employer] Pysorw1587 [facility] [id number] 2:14 Microsomal Ab (Normal) Range: 0.0-20.0 Comments: Negative 0.0 - 20.0 Equivocal 20.1 - 24.9 Positive >24.9 . LKM type 1 antibodies are detected in patients with autoimmune hepatitis type 2 and in up to 8% of patients with chronic HCV infection. 05-Xjt-609203:14 HEPATIC FUNCTION PANEL Comments: PATIENT NOT FASTINGPERFORMED BY: [employer]6370 [facility] [id number] (41360) ALT (SGPT) 49 [iU]/L (Abnormal) Range: 0-32 AST (SGOT) 57 [iU]/L (Abnormal) Range: 0-40 Alkaline Phosphatase 100 [iU]/L (Normal) Range: 39-117 Bilirubin, Direct 0.14 mg/dL (Normal) Range: 0.00-0.40 Bilirubin, Total 0.4 mg/dL (Normal) Range: 0.0-1.2 Albumin 4.1 g/dL (Normal) Range: 3.5-4.8 Protein, Total 6.8 g/dL (Normal) Range: 6.0-8.5 29-Caj-532527:14 HEPATITIS PANEL (88722) Comments: PATIENT NOT FASTINGPERFORMED BY: [employer] Fqnyoy7289 [facility] [id number] Hep C Virus Ab <0.1 {s/co_ratio} (Normal) Range: 0.0-0.9 Comments: Negative: < 0.8 Indeterminate: 0.8 - 0.9 Positive: > 0.9 . The CDC recommends that a positive HCV antibody result be followed up with a HCV Nucleic Acid Amplification test (157000). Hep B Core Ab, IgM Negative (Normal) HBsAg Screen Negative (Normal) Hep A Ab, IgM Negative (Normal) 35-Wmj-043050:14 ANTIMITOCHONDRIAL ANTIBODY Comments: PATIENT NOT FASTINGPERFORMED BY: [facility] Cvlztz7199 [facility] [id number] (98332) Mitochondrial (M2) Antibody <20.0 {Units} (Normal) Range: 0.0-20.0 Comments: Negative 0.0 - 20.0 Equivocal 20.1 - 24.9 Positive >24.9 . Mitochondrial (M2) Antibodies are found in 90-96% of patients with primary biliary cirrhosis. 50-Tso-678852:14 TRANSFERRIN (09667) Comments: PATIENT NOT FASTINGPERFORMED BY: [facility]6370 [facility] [id number] Transferrin 226 mg/dL (Normal) Range: 200-370 76-Eft-536702:14 GGT (GAMMA GLUTAMYLTRANSFERASE) Comments: PATIENT NOT FASTINGPERFORMED BY: [facility]6370 [facility] [id number] (01003) GGT 59 [iU]/L (Normal) Range: 0-60 46-Sqx-764384:14 FERRITIN (75258) Comments: PATIENT NOT FASTINGPERFORMED BY: [facility] Csuodq9012 [facility] [id number] Ferritin, Serum 545 ng/mL (Abnormal) Range: 15-150 01-Qjx-915712:14 CMV IGM ANTBDY (74173) Comments: PATIENT NOT FASTINGPERFORMED BY: [facility] Qmjnbx4308 [facility] [id number] Cytomegalovirus (CMV) Ab, IgM <30.0 AU/mL (Normal) Range: 0.0-29.9 Comments: Negative <30.0 Equivocal 30.0 - 34.9 Positive >34.9 A positive result is generally indicative of acute infection, reactivation or persistent IgM production. 38-Gfa-588936:14 CERULOPLASMIN (67040) Comments: PATIENT NOT FASTINGPERFORMED BY: [facility] Pyazeo7803 [facility] [id number] Ceruloplasmin 26.3 mg/dL (Normal) Range: 19.0-39.0 96-Qal-896001:14 ASM (ANTI SMOOTH MUSCLE Comments: PATIENT NOT FASTINGPERFORMED BY: CORTEZ Griffin Bpcput9494 [facility] [facility]in [place] [id number] ANTIBODY) (13421) Actin (Smooth Muscle) Antibody 5 {Units} (Normal) Range: 0-19 Comments: Negative 0 - 19 Weak positive 20 - 30 Moderate to strong positive >30 . Actin Antibodies are found in 52-85% of patients with autoimmune hepatitis or chronic active hepatitis and in 22% of patients with primary biliary cirrhosis. 37-Uuk-790171:14 MELI (ANTINUCLEAR ANTIBODY) Comments: PATIENT NOT FASTINGPERFORMED BY: CORTEZ [facility] Owkqxh7084 [address] [facility] [id number] (07929) MELI Direct Negative (Normal) 67-Vzl-537774:33 HgA1C , Office (97707) HgA1C , Office 7.2 % (Abnormal) Range: 4.6 - 7.1 83-Kgw-069050:38 MELI (ANTINUCLEAR ANTIBODY) Comments: PATIENT NOT FASTINGPERFORMED BY: [facility] Hhebqm2067 [address] [facility] [id number] (52823) MELI Direct Negative (Normal) 79-Tzx-856464:38 VITAMIN B-12 (CYANOCOBALAMIN) Comments: PATIENT NOT FASTINGPERFORMED BY: [facility] Unzsdz2028 [facility] [id number] (24695) Vitamin B12 463 pg/mL (Normal) Range: 232-1245 81-Hps-189211:38 TSH (45019) Comments: PATIENT NOT FASTINGPERFORMED BY: [facility] Zkdonm0816 [address] [facility] [id number] TSH 0.062 {uIU/mL} (Abnormal) Range: 0.450-4.500 67-Bhc-493315:38 SED RATE ERYTHROCYTE (71747) Comments: PATIENT NOT FASTINGPERFORMED BY: CORTEZ [facility] Ddsocw7399 [address] [facility] [id number] Sedimentation Rate-Westergren 7 mm/h (Normal) Range: 0-40 10-Kmt-116798:38 METABOLIC PANEL, COMPREHENSIVE Comments: PATIENT NOT FASTINGPERFORMED BY: [facility] Glzqad3804 [facility] [id number] (82946) ALT (SGPT) 52 [iU]/L (Abnormal) Range: 0-32 [...] 8-27 Glucose 134 mg/dL (Abnormal) Range: 65-99 25-Mqj-877014:38 C-REACTIVE PROTEIN (60062) Comments: PATIENT NOT FASTINGPERFORMED BY: LabCoSaint Francis Medical CenterPnsdig2188 [facility] [id number] C-Reactive Protein, Quant 4.8 mg/L (Normal) Range: 0.0-4.9 67-Bjc-767585:38 CBC (AUTO) (40240) Comments: PATIENT NOT FASTINGPERFORMED BY: LabCoSaint Francis Medical CenterKixykm8876 [facility] [id number] Platelets 248 {x10E3/uL} Range: 150-379 (Normal) RDW [...] mg/L (Abnormal) Comments: PATIENT NOT FASTINGPERFORMED BY: [employer] [facility] [id number] BY: [address] [id number] 2:25 Serum Range: 0.6-2.4 Comments: Siemens Double Doodsulite 2000 Immunochemiluminometric assay (ICMA) 8-Mag-413536:25 Immunoglobulins Comments: PATIENT NOT FASTINGPERFORMED BY: EXO5lin6370 [facility] [id number] BY: [employer] [id number] Iga/Ige/Igg/Igm (GAME) (41613) Immunoglobulin E, Total 259 {IU/mL} (Abnormal) Range: 0-100 Immunoglobulin M, Qn, Serum 113 mg/dL (Normal) Range: 26-217 Immunoglobulin A, Qn, Serum 130 mg/dL (Normal) Range: 64-422 Immunoglobulin G, Qn, Serum 837 mg/dL (Normal) Range: 700-1600 6-Tvt-897162:25 LDH (LD) (LACTATE Comments: PATIENT NOT FASTINGPERFORMED BY: [employer] [id number] BY: [address] [id number] DEHYDROGENASE) (66635) LDH 195 [iU]/L (Normal) Range: 119-226 4-Mjp-682248:25 METABOLIC PANEL, Comments: PATIENT NOT FASTINGPERFORMED BY: Cardeas PharmaRachel Ville 7465670 [facility] [id number] BY: [employer] [id number] COMPREHENSIVE (26529) ALT (SGPT) 47 [iU]/L (Abnormal) Range: 0-32 [...] 8-27 Glucose 139 mg/dL (Abnormal) Range: 65-99 4-Mkh-257858:25 CBC, PLATELETS & AUT DIFF Comments: PATIENT NOT FASTINGPERFORMED BY: Cardeas PharmaRachel Ville 7465670 [facility] [id number] BY: [employer] [id number] (43169) Immature Grans (Abs) 0.0 {x10E3/uL} (Normal) Range: [...] 3.77-5.28 WBC 7.2 {x10E3/uL} (Normal) Range: 3.4-10.8 37-Mcp-293303:28 Microscopic Examination Comments: PATIENT NOT FASTINGPERFORMED BY: TotalTakeoutGr[facility]ville [facility] Center [id number] Bacteria None seen (Normal) Mucus Threads Present (Normal) Cast Type Hyaline casts (Normal) Casts Present {/lpf} (Abnormal) Epithelial Cells (non renal) 0-10 {/hpf} (Normal) Range: 0 - 10 RBC 0-2 {/hpf} (Normal) Range: 0 - 2 WBC >30 {/hpf} (Abnormal) Range: 0 - 5 15-Zmf-237734:24 URINE RANI CULTURE-RADHA COL Comments: PATIENT NOT FASTINGPERFORMED BY: [employer] Political MatchmakersGranville Medical Center [id number] Information: SRC:UC COUNT (71314) Antimicrobial MIHEAD (Normal) Comments: S = Susceptible; I = Intermediate; R = Resistant P = Positive; N = Negative MICS are expressed in micrograms per mL Antibiotic RSLT#1 RSLT#2 RS Susceptibility LT#3 RSLT#4Amoxicillin/Clavulanic Acid SAmpicillin RCefepime SCeftriaxone SCefuroxime SCephalothin SCiprofloxacin SGentamicin SImipenem SNitrofurantoin SPiperacillin RTetracycline STobram ycin STrimethoprim/Sulfa S Result 1 Raoultella Comments: 5,000 Colonies/mL planticola (Abnormal) Urine Final report Culture,Comprehensive (Abnormal) 02-Dif-196312:28 MICROALBUMIN: CREATININE RATIO Comments: PATIENT NOT FASTINGPERFORMED BY: Cardeas PharmaSaint Francis Medical CenterQrdoax6266 [facility] [id number] (36057) AND (47877) Alb/Creat Ratio 215.8 {mg/g_creat} (Abnormal) Range: 0.0-30.0 Albumin, Urine 245.4 ug/mL (Normal) Creatinine, Urine 113.7 mg/dL (Normal) 08-Agc-487089:28 URINALYSIS, W/ MICRO (29378) Comments: PATIENT NOT FASTINGPERFORMED BY: [facility]StackProm[facility] Hospital6370 [facility] [id number] Microscopic Examination See below: (Normal) Comments: Microscopic was indicated and was performed. Nitrite, Urine Negative (Normal) Urobilinogen,Semi-Qn 0.2 mg/dL (Normal) Range: 0.2-1.0 Bilirubin Negative (Normal) Occult Blood Negative (Normal) Ketones Negative (Normal) Glucose Trace (Abnormal) Protein 1+ (Abnormal) WBC Esterase 1+ (Abnormal) Appearance Clear (Normal) Urine-Color Yellow (Normal) pH 5.5 (Normal) Range: 5.0-7.5 Specific [place] 1.025 (Normal) Range: 1.005-1.030 79-Sci-019268:28 METABOLIC PANEL, COMPREHENSIVE Comments: PATIENT NOT FASTINGPERFORMED BY: [place] [id number] [facility] [id number] (15396) ALT (SGPT) 37 [iU]/L (Abnormal) Range: 0-32 [...] Glucose, Serum 179 mg/dL (Abnormal) Range: 65-99 17-Udx-317313:28 CBC, PLATELETS & AUT DIFF Comments: PATIENT NOT FASTINGPERFORMED BY: [facility] Yuwlxx4240 [facility] [id number] (04170) Immature Grans (Abs) 0.0 {x10E3/uL} (Normal) Range: [...] 3.77-5.28 WBC 9.3 {x10E3/uL} (Normal) Range: 3.4-10.8 93-Xrv-508474:28 TSH (THYROID STIMULATING Comments: PATIENT NOT FASTINGPERFORMED BY: Cardeas PharmaSaint Francis Medical CenterNdzbrc5353 [facility] [id number] HORMONE) (35480) TSH 23.220 {uIU/mL} (Abnormal) Range: 0.450-4.500 87-Lcd-116619:28 LIPID PANEL (55454) Comments: PATIENT NOT FASTINGPERFORMED BY: Cardeas PharmaSaint Francis Medical CenterPvcmdk1287 [facility] [id number] LDL/HDL Ratio 1.7 {ratio_units} (Normal) Range: 0.0-3.2 Comments: LDL/HDL Ratio Men Women 1/2 Avg.Risk 1.0 1.5 Av g.Risk 3.6 3.2 2X Avg.Risk 6.2 5.0 3X Avg.Risk 8.0 6.1 LDL Cholesterol Calc 83 mg/dL (Normal) Range: 0-99 VLDL Cholesterol Priscilla 42 mg/dL (Abnormal) Range: 5-40 HDL Cholesterol 48 mg/dL (Normal) Triglycerides 208 mg/dL (Abnormal) Range: 0-149 Cholesterol, Total 173 mg/dL (Normal) Range: 100-199 34-Qch-701994:28 CALCIFEDIOL (38062) Comments: PATIENT NOT FASTINGPERFORMED BY: [facility] Crunti1853 Sridhar Benson [place] [id number] Vitamin D, 25-Hydroxy 25.4 ng/mL (Abnormal) Range: 30.0-100.0 Comments: Vitamin D deficiency has been defined by the [place] ofMedicine and an Endocrine Society practice guideline as alevel of serum 25-OH vitamin D less than 20 ng/mL (1,2).The Endocrine Society went on to further define vitamin Dinsufficiency as a level between 21 and 29 ng/mL (2).1. IOM ([place] of Medicine). 2010. Dietary reference intakes for calcium and D. [place]: The National Academies Press.2. Rachel MF, Yael MARLEY, Dunia HERRERA, et al. Evaluation, treatment, and prevention of vitamin D deficiency: an Endocrine Society clinical practice guideline. JCEM. 2010; 96(7):1911-30. 20-Pcb-708870:40 Basic Metabolic Profile (BMP) Comments: 'TROP' Serial specimen #1, #2, #3, or #4: [address] [place] [address] Deympeavco[address] [place], [address] GAP 11 (Normal) Range: 5-15 CO2 24.0 [...] 126 mg/dLsuggests DIABETES MELLITUS per A.D.A. criteria. 16-Vur-299833:40 BNP,B-Type NATRIURETIC PEPTIDE Comments: [facility] Emipwdambr[address] [place], [place], [address] B-TYPE SANJU PEP 13.3 pg/mL (Normal) Range: 0-100 44-Rxg-431142:40 CBC W/Diff, Automated Comments: [facility] Ssaraujajg29[address] [place], [place], [address] Absolute Lymph 1.65 {X10_3/ul} (Normal) Range: 0.83-4.51 [...] 4.2-5.4 WBC 4.1 K/mm3 (Abnormal) Range: 4.4-11.0 44-Xpr-343082:40 Troponin-I Comments: 'TROP' Serial specimen #1, #2, #3, or #4: [address] [place] [address] Hbzvxnzyua[address] [place], [address] TROPONIN-I < 0.02 ng/mL (Normal) Comments: TROPONIN-I EXPECTED VALUES <0.05 NEGATIVE 0.06 - 0.59 AT RISK OF MT > OR = 0.60 SUGGEST MT 13-Rbj-141716:08 Microscopic Examination Comments: PATIENT WAS FASTINGPERFORMED BY: [employer]6370 [facility] [id number] Bacteria Few (Normal) Mucus Threads Present (Normal) Cast Type Hyaline casts (Normal) Casts Present {/lpf} (Abnormal) Epithelial Cells (non renal) 0-10 {/hpf} (Normal) Range: 0 - 10 RBC 0-2 {/hpf} (Normal) Range: 0 - 2 WBC 11-30 {/hpf} (Abnormal) Range: 0 - 5 77-Kal-982041:08 CALCIFIDIOL (80013) VIT D 25 Comments: PATIENT WAS FASTINGPERFORMED BY: LabMedSynergiesrp Vqyncr5559 [facility] [id number] Vitamin D, 25-Hydroxy 33.5 ng/mL (Normal) Range: 30.0-100.0 Comments: Vitamin D deficiency has been defined by the [place] ofMedicine and an Endocrine Society practice guideline as alevel of serum 25-OH vitamin D less than 20 ng/mL (1,2).The Endocrine Society went on to further define vitamin Dinsufficiency as a level between 21 and 29 ng/mL (2).1. IOM ([place] of Medicine). 2010. Dietary reference intakes for calcium and D. [place]: The National Academies Press.2. Rachel MF, Yael MARLEY, Dunia HERRERA, et al. Evaluation, treatment, and prevention of vitamin D deficiency: an Endocrine Society clinical practice guideline. JCEM. 2010; 96(7):1911-30. 85-Won-277217:08 TSH (10313) Comments: PATIENT WAS FASTINGPERFORMED BY: [facility]6370 [facility] [id number] TSH 3.700 {uIU/mL} (Normal) Range: 0.450-4.500 05-Smx-068935:08 LIPID PANEL (19660) Comments: PATIENT WAS FASTINGPERFORMED BY: [facility]6370 [facility] [id number] LDL/HDL Ratio 1.8 {ratio_units} (Normal) Range: 0.0-3.2 Comments: LDL/HDL Ratio Men Women 1/2 Avg.Risk 1.0 1.5 Av g.Risk 3.6 3.2 2X Avg.Risk 6.2 5.0 3X Avg.Risk 8.0 6.1 LDL Cholesterol Calc 84 mg/dL (Normal) Range: 0-99 VLDL Cholesterol Priscilla 49 mg/dL (Abnormal) Range: 5-40 HDL Cholesterol 46 mg/dL (Normal) Triglycerides 243 mg/dL (Abnormal) Range: 0-149 Cholesterol, Total 179 mg/dL (Normal) Range: 100-199 39-Wmp-155317:08 URINALYSIS, W/ MICRO (37996) Comments: PATIENT WAS FASTINGPERFORMED BY: [facility]6370 [facility] [id number] Microscopic Examination See below: (Normal) Comments: Microscopic was indicated and was performed. Nitrite, Urine Negative (Normal) Urobilinogen,Semi-Qn 0.2 mg/dL (Normal) Range: 0.2-1.0 Bilirubin Negative (Normal) Occult Blood Negative (Normal) Ketones Negative (Normal) Glucose Negative (Normal) Protein 2+ (Abnormal) WBC Esterase 1+ (Abnormal) Appearance Clear (Normal) Urine-Color Yellow (Normal) pH 5.5 (Normal) Range: 5.0-7.5 Specific [place] >=1.030 (Abnormal) Range: 1.005-1.030 70-Jip-442546:08 MICROALBUMIN: CREATININE RATIO Comments: PATIENT WAS FASTINGPERFORMED BY: [facility]6370 [facility] [id number] (00530) AND (07895) Microalb/Creat Ratio 246.3 {mg/g_creat} (Abnormal) Range: 0.0-30.0 Microalbumin, Urine 433.7 ug/mL (Normal) Comments: Results confirmed ondilution. Creatinine, Urine 176.1 mg/dL (Normal) 66-Pts-647298:08 METABOLIC PANEL, COMPREHENSIVE Comments: PATIENT WAS FASTINGPERFORMED BY: [employer]70 xLander.ruGranville Medical Center [id number] (49689) ALT (SGPT) 26 [iU]/L (Normal) Range: 0-32 [...] Glucose, Serum 158 mg/dL (Abnormal) Range: 65-99 23-Rhh-919362:08 CBC W/AUTO DIFF WBC (83768) Comments: PATIENT WAS FASTINGPERFORMED BY: [employer] [email or web address] [id number] Immature Grans (Abs) 0.0 {x10E3/uL} (Normal) Range: [...] (Normal) Range: 3.4-10.8 :31 HgA1C , Office (26354) HgA1C , Office 6.6 % (Normal) Range: 4.6 - 7.1 :31 Blood Glucose , Office (69678) Blood Glucose , Office 143 (Normal) :45 CBC W/Diff, Automated Comments: [facility] [address] [place], [place], [id number] Absolute Lymph 1.46 {X10_3/ul} (Normal) Range: 0.83-4.51 [...] 4.2-5.4 WBC 12.9 K/mm3 (Abnormal) Range: 4.4-11.0 8-Ffb-269813:45 Comprehensive Metabolic Profil Comments: [facility] [address] [place], [place], [address] GAP 8 (Normal) Range: 5-15 CO2 27.0 [...] 126 mg/dLsuggests DIABETES MELLITUS per A.D.A. criteria. 4-Qyo-248444:45 Prothrombin Time w/INR Comments: [facility] [address] [place], [place], [address] INR 0.9 (Normal) PROTIME 11.6 s (Abnormal) Range: 11.7-14.9 1-Wqf-378958:12 HgA1C , Office (55226) HgA1C , Office 6.5 % (Normal) Range: 4.6 - 7.1 8-Iyq-721960:12 Blood Glucose , Office (27953) Blood Glucose , Office 122 (Normal) 80-Ekr-63727:39 Lipid Profile Comments: [facility] [address] [place], [place], [address] VLDL 39 mg/dL (Normal) Range: 5-40 LDL [...] report for address and phone number METHYLM [id number] 215 nmol/L (Normal) Range: 0-378 Comments: Performed at: [address] [id number] Director: Frantz Josue MD, Phone: [phone] :[phone] Vitamin B12 531 pg/mL (Normal) Comments: [facility] [address]pfwc[address] [place], [address] Range: 211-911 :39 Vitamin D,25 Hydroxy Comments: [facility] [address] [place], [address] Vitamin D 25-OH 44.7 ng/mL (Normal) Comments: Vitamin D 25(OH) Status Range Deficiency <20 ng/mL (50nmol/L) Insuffciency 20 - 30 ng/mL (50 - 75 nmol/L) Sufficiency 30 - 100 ng/mL (75 - 250 nmol/L) Toxicity >100 ng/mL (>250 nmol/L) :29 Bedside Glucose Comments: [facility] LaboratoryPoint of Vrpw[address] [place] [address] BEDSIDE GLU 139 mg/dL (Abnormal) Range: 70-110 Comments: No Action RequiredMANAGEMENT OF PATIENT CARE PER NURSING PROTOCOL COLON BIOPSY (CHOOSE See Note (Normal) Comments: [facility] [address] [place], [address] :54 SITE) Comments: Patient: MARICRUZ GRIGSBY : 1940 (76/F) Acct Num: [id number] Phys: Constantine Saunders Unit Num: [id number] Loc: LABSPEC Specimen: [id number] Received: 11/05/16 - 163 Spe c Type: [...] one cassette. / RY:edita 11/06/16 TC:1 CPT: 09736 x2 HEADER OPERATION: Colonoscopy with polypectomy PRE-OP [...] Signed Zane Elliott 11/07/16 <signature on file> 23-Vph-199306:47 CBC W/Diff, Automated Comments: [facility] [address] [place], [place], [address] Absolute Lymph 1.88 {X10_3/ul} (Normal) Range: 0.83-4.51 [...] 4.2-5.4 WBC 8.8 K/mm3 (Normal) Range: 4.4-11.0 39-Blb-754434:42 Comprehensive Metabolic Profil Comments: Order Date: 10/10/16Order Info: 0786-1 - *CMP Complete Metabolic PanelOrder Info: [id number] - *IBC Iron \E AND E\ Total Iron Binding CapacityOrder Info: 2276-4 - *FerritinComments: Reason:Order Date: 10/10/16Order Info: [id number] - *KAPLAMBDA - Oil Trough Lamda Light ChainsComments: Reason:[facility] Agfsjhdmln4398 [facility]. [place], [place], [address] GAP 9 (Normal) Range: 5-15 CO2 28.0 [...] <126 mg/dLsuggests IMPAIRED HOMEOSTASIS per A.D.A. criteria. 89-Brf-409411:42 Ferritin Comments: Order Date: 10/10/16Order Info: 0786-1 - *CMP Complete Metabolic PanelOrder Info: 11131-3 - *IBC Iron \E AND E\ Total Iron Binding CapacityOrder Info: 2276-4 - *FerritinComments: Reason:Order Date: 10/10/16Order Info: 68872-8 - *KAPLAMBDA - Oil Trough Lamda Light ChainsComments: Reason:[facility] [address] [place], [place], [address] FERRITIN 45 ng/mL (Normal) Range: 8-252 99-Yjh-014251:42 DEEPALI + Protein Elect, Serum Comments: Order Date: 10/10/16Order Info: 0282-1 - *IMEL DEEPALI + Prot Elec, Serum 1495Order Info: 34784-9 - *KAPLAMBDA - Oil Trough Lamda Light ChainsOrder Date: 10/10/16Order Info: 0282-1 - *IMEL DEEPALI + Prot Elec, Serum 1495Order Info: [id number] - *KAPLAMBDA - Oil Trough Lamda Light ChainsOrder Date: 10/10/16Order Info: [id number] - *KAPLAMBDA - Oil Trough Lamda Light ChainsIs Patient Fasting? NComments: Reason:[facility] (refer to report for specific site)refer to report for address and phone number NOTE: Comment (Normal) Comments: Protein electrophoresis scan will follow via computer,mail, or assistant restaurant general manager delivery. DEEPALI RESULT,S Comment (Normal) Comments: Immunofixation shows IgG monoclonal protein with lambdalight chain specificity. A/G RATIO 1.4 (Normal) Range: 0.7-1.7 GLOBULIN, TOTAL 2.8 g/dL (Normal) Range: 2.2-3.9 M-SPIKE 0.3 g/dL (Abnormal) GAMMA GLOBULIN 0.8 g/dL (Normal) Range: 0.4-1.8 BETA GLOBULIN 0.9 g/dL (Normal) Range: 0.7-1.3 LTZSX-8-TSRB 0.9 g/dL (Normal) Range: 0.4-1.0 SZIBM-1-QNYL 0.2 g/dL (Normal) Range: 0.0-0.4 ALBUMIN 3.7 g/dL (Normal) Range: 2.9-4.4 IMMUNOGL M 100 mg/dL (Normal) Range: 26-217 IMMUNO A 106 mg/dL (Normal) Range: 64-422 IMMUNO G 693 mg/dL (Abnormal) Range: 700-1600 PROTEIN,TOTAL 6.5 g/dL (Normal) Range: 6.0-8.5 23-Fmq-849060:42 Iron+Iron Binding Capacity Comments: Order Date: 10/10/16Order Info: 0786-1 - *CMP Complete Metabolic PanelOrder Info: 78099-4 - *IBC Iron \E AND E\ Total Iron Binding CapacityOrder Info: 2276-4 - *FerritinComments: Reason:Order Date: 10/10/16Order Info: 34959-5 - *KAPLAMBDA - Oil Trough Lamda Light ChainsComments: Reason:[facility] [address] [place], [place], [address] IRON SATURATION 15.9 % (Normal) Range: 15.0-55.0 IRON 49 ug/dL (Abnormal) Range: 50-170 TIBC 309 ug/dL (Normal) Range: 250-450 40-Hox-159175:42 Oil Trough Lambda Light Chains Comments: Order Date: 10/10/16Order Info: 0282-1 - *IMEL DEEPALI + Prot Elec, Serum 1495Order Info: 62641-0 - *KAPLAMBDA - Oil Trough Lamda Light ChainsOrder Date: 10/10/16Order Info: 0282-1 - *IMEL DEEPALI + Prot Elec, Serum 1495Order Info: 89439-9 - *KAPLAMBDA - Oil Trough Lamda Light ChainsOrder Date: 10/10/16Order Info: [id number] - *KAPLAMBDA - Oil Trough Lamda Light ChainsIs Patient Fasting? NComments: Reason:[facility] (refer to report for specific site)refer to report for address and phone number KAPPA/LAMBDA % 0.98 (Normal) Range: 0.26-1.65 Comments: Performed at: - [facility] [address] [id number] Director: Constantine Christianson PhD, Phone: [phone] FR LAMBDA LT CH 19.06 mg/L (Normal) Range: 5.71-26.30 FR KAPPA LT CHN 18.62 mg/L (Normal) Range: 3.30-19.40 93-Pet-149327:06 VITAMIN B-12 (CYANOCOBALAMIN) Comments: PATIENT NOT FASTINGPERFORMED BY: [facility] Ukpdtr1922 [facility] [id number] (28742) Vitamin B12 709 pg/mL (Normal) Range: 211-946 24-Rat-361378:45 Blood Glucose , Office (28456) Blood Glucose , Office 104 (Normal) 48-Izo-742219:45 HgA1C , Office (91025) HgA1C , Office 6.7 % (Normal) Range: 4.6 - 7.1 :54 CBC W/Diff, Automated Comments: [facility] [address] [place], [place], [address] Absolute Lymph 1.51 {X10_3/ul} (Normal) Range: 0.83-4.51 [...] 4.2-5.4 WBC 7.0 K/mm3 (Normal) Range: 4.4-11.0 67-Wtv-03237:54 Comprehensive Metabolic Profil Comments: [facility] [address] [place], [place], [address] GAP 8 (Normal) Range: 5-15 CO2 28.0 [...] per A.D.A. criteria. :54 Lipid Profile Comments: [facility] [address] [place], [address] VLDL 38 mg/dL (Normal) Range: 5-40 LDL [...] High Risk :54 Microalb:Creat Ratio,Random UR Comments: [facility] [address]rtjonchr[address] [place], [address] MALB:CREAT 223.2 {mg/g_CRE} (Abnormal) MICROALBUMIN,UR 250.0 mg/L (Normal) UR CREAT 112.00 mg/dL (Normal) :54 Thyroid Stim Hormone (TSH) Comments: [facility] Xxbzcnwqgu32[address] [place], [address] TSH 1.13 {uIU/mL} (Normal) Range: 0.358-3.74 :54 Urinalysis, Complete Comments: How was Urine Obtained? CLEAN [facility] [address] [place], [address] MUCUS, URINE 0 SEEN {/hpf} (Normal) [...] Yellow (Normal) :54 Vitamin D,25 Hydroxy Comments: [facility] [address]rs[address] [place], [address] Vitamin D 25-OH 31.6 ng/mL (Normal) Comments: Vitamin D 25(OH) Status Range Deficiency <20 ng/mL (50nmol/L) Insuffciency 20 - 30 ng/mL (50 - 75 nmol/L) Sufficiency 30 - 100 ng/mL (75 - 250 nmol/L) Toxicity >100 ng/mL (>250 nmol/L) 93-Csz-810390:07 VITAMIN B-12 (CYANOCOBALAMIN) Comments: PATIENT NOT FASTINGPERFORMED BY: [facility]6370 [facility] [id number] (30554) Vitamin B12 1119 pg/mL (Abnormal) Range: 211-946 41-Fcc-934872:23 Microscopic Examination Comments: PATIENT WAS FASTINGPERFORMED BY: [place] [id number] [facility] [id number] Bacteria Few (Normal) Mucus Threads Present (Normal) Epithelial Cells (non renal) 0-10 {/hpf} (Normal) Range: 0 - 10 RBC 0-2 {/hpf} (Normal) Range: 0 - 2 WBC >30 {/hpf} (Abnormal) Range: 0 - 5 77-Tat-688052:23 VITAMIN B-12 (CYANOCOBALAMIN) Comments: PATIENT WAS FASTINGPERFORMED BY: [facility]6370 [facility] [id number] (82595) Vitamin B12 >2000 pg/mL (Abnormal) Range: 211-946 37-Mvn-289845:23 TSH (29046) Comments: PATIENT WAS FASTINGPERFORMED BY: [facility]6370 [facility] [id number] TSH 5.380 {uIU/mL} (Abnormal) Range: 0.450-4.500 29-Nyf-478461:23 URINALYSIS, W/ MICRO (67970) Comments: PATIENT WAS FASTINGPERFORMED BY: [facility]6370 [facility] [id number] Microscopic Examination See below: (Normal) Comments: Microscopic was indicated and was performed. Nitrite, Urine Negative (Normal) Urobilinogen,Semi-Qn 0.2 mg/dL (Normal) Range: 0.2-1.0 Bilirubin Negative (Normal) Occult Blood Negative (Normal) Ketones Negative (Normal) Glucose Negative (Normal) Protein Trace (Normal) WBC Esterase 2+ (Abnormal) Appearance Clear (Normal) Urine-Color Yellow (Normal) pH 6.0 (Normal) Range: 5.0-7.5 Specific [place] 1.022 (Normal) Range: 1.005-1.030 11-Wry-093434:23 MICROALBUMIN: CREATININE RATIO Comments: PATIENT WAS FASTINGPERFORMED BY: [facility]6370 [facility] [id number] (47016) AND (51739) Microalb/Creat Ratio 24.2 {mg/g_creat} (Normal) Range: 0.0-30.0 Microalbumin, Urine 35.4 ug/mL (Normal) Creatinine, Urine 146.0 mg/dL (Normal) 26-Ewp-858717:23 METABOLIC PANEL, COMPREHENSIVE Comments: PATIENT WAS FASTINGPERFORMED BY: Card[facility] PharmaSaint Francis Medical CenterSjbivr7184 [facility] [id number] (28056) ALT (SGPT) 25 [iU]/L (Normal) Range: 0-32 [...] Glucose, Serum 143 mg/dL (Abnormal) Range: 65-99 61-Ifa-168547:23 CBC W/AUTO DIFF WBC (69310) Comments: PATIENT WAS FASTINGPERFORMED BY: [facility]CoSaint Francis Medical CenterMpyyjn1945 [facility] [id number] Immature Grans (Abs) 0.0 {x10E3/uL} (Normal) Range: [...] 3.77-5.28 WBC 7.4 {x10E3/uL} (Normal) Range: 3.4-10.8 38-Gqc-175305:23 CALCIFIDIOL (88757) VIT D 25 Comments: PATIENT WAS FASTINGPERFORMED BY: [facility]CoSaint Francis Medical CenterHvcbra3513 [facility] [id number] Vitamin D, 25-Hydroxy 28.9 ng/mL (Abnormal) Range: 30.0-100.0 Comments: Vitamin D deficiency has been defined by the Sachse ofTuscarawas Hospitalcine and an Endocrine Society practice guideline as alevel of serum 25-OH vitamin D less than 20 ng/mL (1,2).The Endocrine Society went on to further define vitamin Dinsufficiency as a level between 21 and 29 ng/mL (2).1. IOM (Sachse of Medicine). 2010. Dietary reference intakes for calcium and D. [place]: The National Academies Press.2. Rachel MF, Yael NC, Dunia HERRERA, et al. Evaluation, treatment, and prevention of vitamin D deficiency: an Endocrine Society clinical practice guideline. JCEM. 2010; 96(7):1911-30. :22 HgA1C , Office (48815) HgA1C , Office 7.1 % (Normal) Range: 4.6 - 7.1 :22 Blood Glucose , Office (33197) Blood Glucose , Office 171 (Normal) 8-Clw-194837:10 Basic Metabolic Profile (BMP) Comments: Serial Specimen #1, #2 or #3? 1'TROP' Serial specimen #1, #2, #3, or #4: 1[facility] [address] [place], [address] GAP 8 (Normal) Range: 5-15 CO2 28.0 [...] 126 mg/dLsuggests DIABETES MELLITUS per A.D.A. criteria. 2-Wdh-440055:10 CBC W/Diff, Automated Comments: [facility] [address] [place], [place], [address] Absolute Lymph 1.32 {X10_3/ul} (Normal) Range: 0.83-4.51 [...] Serial specimen #1, #2, #3, or #4: [address] [place] [address] [address] [place], [address] CKRI 1.3 % (Normal) Range: [...] Serial specimen #1, #2, #3, or #4: [address] [place] [address] Rjivdvhipe[address] [place], [address] TROPONIN-I < 0.02 ng/mL (Normal) Comments: TROPONIN-I EXPECTED VALUES <0.05 NEGATIVE 0.06 - 0.59 AT RISK OF MT > OR = 0.60 SUGGEST MT :55 Blood Glucose , Office (75698) Blood Glucose , Office 117 (Normal) :36 HgA1C , Office (28135) HgA1C , Office 7.1 % (Normal) Range: 4.6 - 7.1 :52 CBC W/Diff, Automated Comments: CBCD WITH WBC PER [facility] [address]utkbevikd[address] [place], [address] Absolute Lymph 1.67 {X10_3/ul} (Normal) [...] Range: 4.4-11.0 30-Nov-20156:52 Comprehensive Metabolic Profil Comments: [facility] [address] [place], [place], [address] GAP 10 (Normal) Range: 5-15 CO2 26.0 [...] per A.D.A. criteria. :52 Immunofixation Urine Comments: [facility] (refer to report for specific site)refer to report for address and phone number DEEPALI Urine Comment (Normal) Comments: Immunofixation shows IgG monoclonal protein with lambdalight chain specificity.Bence Jorge Protein positive; lambda type.Performed at: [place] [address] 1269[facility] Dire ctor: Constantine Christianson PhD, Phone: [phone] :[phone] Immunofixation, Serum Comments: [facility] (refer to report for specific site)refer to report for address and phone number DEEPALI RESULT,S Comment (Normal) Comments: Immunofixation shows IgG monoclonal protein with lambdalight chain specificity. IMMUNOGL M 112 mg/dL (Normal) Range: 26-217 IMMUNO A 110 mg/dL (Normal) Range: 64-422 IMMUNO G 783 mg/dL (Normal) Range: 700-1600 :52 Oil Trough Lambda Light Chains Comments: [facility] (refer to report for specific site)refer to report for address and phone number KAPPA/LAMBDA % 1.03 (Normal) Range: 0.26-1.65 FR LAMBDA LT CH 21.11 mg/L (Normal) Range: 5.71-26.30 FR KAPPA LT CHN 21.66 mg/L (Abnormal) Range: 3.30-19.40 :52 Lipid Profile Comments: [facility] [address]pl[address] [place], [id number] ; review OV 12/02/15 VLDL 35 mg/dL [...] High Risk :52 Microalb:Creat Ratio,Random UR Comments: [facility] [address] [place], [address] MALB:CREAT 44.5 {mg/g_CRE} (Abnormal) MICROALBUMIN,UR 68.1 mg/L (Normal) UR CREAT 153.00 mg/dL (Normal) :52 Vitamin B12 268 pg/mL (Normal) Comments: [facility] [address] [place], [address] Range: 211-911 Comments: ADDENDA: normal and has f/u this saturday:52 Vitamin D,25 Hydroxy Comments: [facility] [address] [place], [address] Vitamin D 25-OH 48.8 ng/mL (Normal) Comments: Vitamin D 25(OH) Status Range Deficiency <20 ng/mL (50nmol/L) Insuffciency 20 - 30 ng/mL (50 - 75 nmol/L) Sufficiency 30 - 100 ng/mL (75 - 250 nmol/L) Toxicity >100 ng/mL (>250 nmol/L) :15 Basic Metabolic Profile (BMP) Comments: [facility] [address]th[address] [place], [address] GAP 10 (Normal) Range: 5-15 [...] A.D.A. criteria. :15 CBC W/Diff, Automated Comments: [facility] [address] [place], [address] RED CELL MORPH NORM C+C [...] 4.2-5.4 WBC 11.4 K/mm3 (Abnormal) Range: 4.4-11.0 85-Izw-858476:08 HgA1C , Office (49685) HgA1C , Office 6.8 % (Normal) Range: 4.6 - 7.1 3-Yxa-025983:30 FERRITIN (17111) Comments: PATIENT WAS FASTINGPERFORMED BY: [employer]70 [address] [facility] [id number] Ferritin, Serum 121 ng/mL (Normal) Range: 15-150 8-Zss-264175:30 IRON (32123) Comments: PATIENT WAS FASTINGPERFORMED BY: [employer]70 [employer] [facility] [id number] Iron, Serum 56 ug/dL (Normal) Range: 35-155 [...] - 159 >60 years 27 - 139 5-Dmo-008263:30 TSH (37243) Comments: PATIENT WAS FASTINGPERFORMED BY: [facility]CoSaint [facility] CenterUdzdwq9831 [facility] [id number] TSH 1.660 {uIU/mL} (Normal) Range: 0.450-4.500 0-Fyx-558287:30 LIPID PANEL (35479) Comments: PATIENT WAS FASTINGPERFORMED BY: [facility]CoSaint Francis Medical CenterDvwgsu4940 [facility] [id number] LDL/HDL Ratio 2.1 {ratio_units} (Normal) Range: 0.0-3.2 [...] Cholesterol, Total 190 mg/dL (Normal) Range: 100-199 9-Jfr-896113:30 METABOLIC PANEL, COMPREHENSIVE Comments: PATIENT WAS FASTINGPERFORMED BY: [facility] Yrkqri6723 [facility] [id number] (20799) ALT (SGPT) 24 [iU]/L (Normal) Range: 0-32 [...] Glucose, Serum 122 mg/dL (Abnormal) Range: 65-99 3-Qvq-697474:30 Vitamin D Hydroxy (45388) Comments: PATIENT WAS FASTINGPERFORMED BY: Markafoni MD [id number] Vitamin D, 25-Hydroxy 25.3 ng/mL (Abnormal) Range: 30.0-100.0 Comments: Vitamin D deficiency has been defined by the Sachse ofMedicine and an Endocrine Society practice guideline as alevel of serum 25-OH vitamin D less than 20 ng/mL (1,2).The Endocrine Society went on to further define vitamin Dinsufficiency as a level between 21 and 29 ng/mL (2).1. IOM (Sachse of Medicine). 2010. Dietary reference intakes for calcium and D. [place]: The National Academies Press.2. Rachel MF, Yael NC, Dunia HERRERA, et al. Evaluation, treatment, and prevention of vitamin D deficiency: an Endocrine Society clinical practice guideline. JCEM. 2010; 96(7):1911-30. 4-Kch-138679:30 CBC W/AUTO DIFF WBC Comments: PATIENT WAS FASTINGPERFORMED BY: [facility] [id number] Information: [id number] (50699) Immature Grans (Abs) 0.0 {x10E3/uL} (Normal) Range: [...] 3.77-5.28 WBC 8.2 {x10E3/uL} (Normal) Range: 3.4-10.8 9-Tqy-943266:30 serum free light chains Comments: PATIENT WAS FASTINGPERFORMED BY: [facility]CoSaint Francis Medical CenterMwozds2801 [facility] [id number] (86279) Oil Trough/Lambda Ratio,S 0.81 (Normal) Range: 0.26-1.65 Free Lambda Lt Chains,S 17.93 mg/L (Normal) Range: 5.71-26.30 Free Oil Trough Lt Chains,S 14.55 mg/L (Normal) Range: 3.30-19.40 8-Tag-291461:08 urine immunofixation (39426) Comments: PATIENT NOT FASTINGPERFORMED BY: [facility]CoSaint [facility] CenterQsemnc4312 [facility] [id number] Information: SRC:UR [id number] DEEPALI Interpretation:U IFEGL (Normal) Comments: 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 6-Ckk-789198:30 serum immunofixation (60356) Comments: PATIENT WAS FASTINGPERFORMED BY: [facility]CoSaint [facility] CenterMbodtl6367 [facility] [id number] Immunoglobulin M, Qn, Serum 99 mg/dL (Normal) Range: 40-230 Immunoglobulin A, Qn, Serum 107 mg/dL (Normal) Range: 91-414 Immunoglobulin G, Qn, Serum 814 mg/dL (Normal) Range: 700-1600 Immunofixation Result, Serum IFEGL (Normal) Comments: Immunofixation shows IgG monoclonal protein with lambda light chainspecificity. :49 CBC W/Diff, Automated Comments: [facility] [address] [place], [place], [address] Absolute Lymph 0.99 {X10_3/ul} (Normal) Range: 0.83-4.51 [...] K/mm3 (Normal) Range: 4.4-11.0 :49 Ferritin Comments: [facility] [address] [place], [address] FERRITIN 80 ng/mL (Normal) Range: 8-252 :49 Hemoglobin A1c Comments: [facility] [address] [place], [address] HGB A1C 6.4 % (Abnormal) Range: 4.2-6.3 :49 Iron Comments: [facility] [address] [place], [address] IRON 43 ug/dL (Abnormal) Range: 50-170 :49 Iron Binding Capacity,Total Comments: [facility] [address] [place], [address] TIBC 336 ug/dL (Normal) Range: 250-450 :49 Protein Electro.Ur-Random Comments: [facility] (refer to report for specific site)refer to report for address and phone number M-SPIKE,U Test not performed (Normal) GAMMA GLOB,U Test not performed (Normal) Comments: Test not performed BETA GLOB,U Test not performed (Normal) Comments: Test not performed PRZHO-9-DUHI,U Test not performed (Normal) Comments: Test not performed PTDPV-6-WLLE,U Test not performed (Normal) Comments: Test not [...] electrophoresis scan will follow via computer,mail, or assistant restaurant general manager delivery. NOTE: Comment (Normal) Comments: The SPE [...] electrophoresis scan will follow via computer,mail, or assistant restaurant general manager delivery. A/G RATIO 1.5 (Normal) Range: 0.7-2.0 [...] 6.0-8.5 :49 Thyroid Stim Hormone (TSH) Comments: [facility] [address] [place], [place], [address] TSH 4.43 {uIU/mL} (Abnormal) Range: 0.358-3.74 :49 Vitamin B12 431 pg/mL (Normal) Comments: [facility] [address] [place], [place], [address] Range: 211-911 Comments: ADDENDA: has apt today :58 AFP, Tumor Marker Comments: Is [facility] ? [facility] (refer to report for specific site)refer to report for address and phone number AFP TUMOR 2253 4.9 ng/mL (Normal) Range: 0.0-8.3 Comments: Patricia ECLIA methodologyPerformed at: - [facility] [address] [id number] Director: Constantine Christianson PhD, Phone: [phone] :[phone] CBC W/Diff, Automated Comments: [facility] [address] [place], [place], [address] Absolute Lymph 1.46 {X10_3/ul} (Normal) Range: 0.83-4.51 [...] 4.2-5.4 WBC 7.3 K/mm3 (Normal) Range: 4.4-11.0 29-Niw-01781:58 Comprehensive Metabolic Profil Comments: [facility] [address] [place], [address] GAP 7 (Normal) Range: 5-15 [...] per A.D.A. criteria. :58 Lipid Profile Comments: [facility] [address] [place], [place], [address] ; non-emergent and has apth this week [...] :58 Vitamin B12 278 pg/mL (Normal) Comments: [facility] Ixjlofqiuk7068 [facility] [place], [address] Range: 211-911 :58 Vitamin D,25 Hydroxy Comments: [facility] [address] [place], [address] Vitamin D 25-OH 38.4 ng/mL (Normal) Comments: Vitamin D 25(OH) Status Range Deficiency <20 ng/mL (50nmol/L) Insuffciency 20 - 30 ng/mL (50 - 75 nmol/L) Sufficiency 30 - 100 ng/mL (75 - 250 nmol/L) Toxicity >100 ng/mL (>250 nmol/L) 57-Tqw-706970:07 HgA1C , Office (68472) HgA1C , Office 6.5 % (Normal) Range: 4.6 - 7.1 :43 AFP, Tumor Marker Comments: Is Patient ? NTest performed at:[facility] Jgnlcfjxwq3806 [facility] [place] [address] AFP TUMOR 2253 4.8 ng/mL (Normal) Range: 0.0-8.3 Comments: SI-BONE ECLIA methodologyPerformed at: [facility] - [facility] [address] [id number] Director: Arnold Jefferson PhD, Phone: [phone] :43 CBC W/Diff, Automated Comments: Test performed at:[facility] Wyqaavnuqh1093 [facility] [place] [address] Absolute Lymph 1.16 {X10_3/ul} (Normal) [...] 4.2-5.4 WBC 5.6 K/mm3 (Normal) Range: 4.4-11.0 09-Kjd-48672:43 Comprehensive Metabolic Profil Comments: Test performed at:[facility] [address] [place] [address] GAP 11 (Normal) Range: 5-15 CO2 24.0 [...] criteria. :43 Lipid Profile Comments: Test performed at:[facility] [address] [place] [address] VLDL 61 mg/dL (Abnormal) Range: 5-40 [...] :43 Microalb:Creat Ratio,Random UR Comments: Test performed at:[facility] [address] [place] [address] MALB:CREAT 15.9 {mg/g_CRE} (Normal) MICROALBUMIN,UR 19.2 mg/L (Normal) UR CREAT 120.3 mg/dL (Normal) :43 Thyroid Stim Hormone (TSH) Comments: Test performed at:[facility] [address] [place] [address] TSH 2.19 {uIU/mL} (Normal) Range: 0.358-3.74 :43 Vitamin B12 261 pg/mL (Normal) Comments: Test performed at:[facility] [address] [place] [address] Range: 211-911 Comments: ADDENDA: nl and pt has apt tomorrow :43 Vitamin D,25 Hydroxy Comments: Test performed at:[facility] [address]ldtlu[address] [place] [address] Vitamin D 25-OH 30.9 ng/mL (Normal) Comments: Vitamin D 25(OH) Status Range Deficiency <20 ng/mL (50nmol/L) Insuffciency 20 - 30 ng/mL (50 - 75 nmol/L) Sufficiency 30 - 100 ng/mL (75 - 250 nmol/L) Toxicity >100 ng/mL (>250 nmol/L) :38 HgA1C , Office (10874) HgA1C , Office 6.7 % (Normal) Range: 4.6 - 7.1 :56 AFP, Tumor Marker Comments: Is Patient ? NTest performed at:[facility] [address] [place] [address] ; appt 02/15 AFP TUMOR 2253 4.8 ng/mL (Normal) Range: 0.0-8.3 Comments: SI-BONE ECLIA methodologyPerformed at: [facility] [address] [id number] Director: Arnold Jefferson PhD, Phone: [phone] :[phone] CBC W/Diff, Automated Comments: Test performed at:[facility] [address] [place] [address] Absolute Lymph 2.37 {X10_3/ul} (Normal) Range: [...] 4.4-11.0 :56 Lipid Profile Comments: Test performed at:[facility] [address] [place], [place] [id number] VLDL 26 mg/dL (Normal) Range: 5-40 LDL [...] :56 Partial Thromboplast Time Comments: Test performed at:[facility] [address] [place] [address] PTT 30.1 s (Normal) Range: 24.1-36.2 :56 Prothrombin Time w/INR Comments: Test performed at:[facility] [address] [place] [address] INR 1.0 (Normal) PROTIME 12.8 s (Normal) Range: 11.7-14.9 :56 Thyroid Stim Hormone (TSH) Comments: Test performed at:[facility] [address] [place] [address] TSH 5.17 {uIU/mL} (Abnormal) Range: 0.358-3.74 :56 Vitamin B12 293 pg/mL (Normal) Comments: Test performed at:[facility] [address] [place] [address] Range: 211-911 :56 Vitamin D,25 Hydroxy Comments: Test performed at:[facility] [address] [place] [address] Vitamin D 25-OH 32.0 ng/mL (Normal) Comments: Vitamin D 25(OH) Status Range Deficiency <20 ng/mL (50nmol/L) Insuffciency 20 - 30 ng/mL (50 - 75 nmol/L) Sufficiency 30 - 100 ng/mL (75 - 250 nmol/L) Toxicity >100 ng/mL (>250 nmol/L) :07 HgA1C , Office (93869) HgA1C , Office 6.3 % (Normal) Range: 4.6 - 7.1 :33 CBC W/Diff, Automated Comments: Test performed at:[facility] [address] [place] [address] ; non- emergent till apt Absolute [...] 4.2-5.4 WBC 7.3 K/mm3 (Normal) Range: 4.4-11.0 57-Lzj-60482:33 Comprehensive Metabolic Profil Comments: Test performed at:[facility] [address] [place], [place] [id number] GAP 4 (Abnormal) Range: 5-15 CO2 28.0 [...] criteria. :33 Lipid Profile Comments: Test performed at:[facility] [address] [place] [address] VLDL 29 mg/dL (Normal) Range: [...] B12 394 pg/mL (Normal) Comments: Test performed at:[facility] Dpjteqtnrr8407 [facility] [place] [address] Range: 211-911 :33 Vitamin D,25 Hydroxy Comments: Test performed at:[facility] Mhkbgrpmxl8771 [facility]. [place], [place] [id number] Vitamin D 25-OH 39.6 ng/mL (Normal) Comments: Vitamin D 25(OH) Status Range Deficiency <20 ng/mL (50nmol/L) Insuffciency 20 - 30 ng/mL (50 - 75 nmol/L) Sufficiency 30 - 100 ng/mL (75 - 250 nmol/L) Toxicity >100 ng/mL (>250 nmol/L) :10 HgA1C , Office (52968) HgA1C , Office 6.4 % (Normal) Range: [...] 4.2-5.4 WBC 6.0 K/mm3 (Normal) Range: 4.4-11.0 22-Otj-38252:42 CMP GAP 5 (Normal) Range: 5-15 CO2 [...] CHOL 167 mg/dL (Normal) Comments: <200 mg/dL Gsphwnapd019-739 mg/dL Borderline>240 mg/dL High Risk TRIG 200 mg/dL (Abnormal) Range: 0-199 Comments: Serum Triglycerides Reference IntervalNormal <150 mg/dLBorderline high 150 - 199 mg/dLHigh 200 - 499 mg/ dLVery High > or = 500 mg/dL :42 TIBC 275 ug/dL (Normal) Range: 250-450 :42 TSH 2.12 {uIU/mL} (Normal) Range: 0.358-3.74 66-Fkd-009811:10 FERRITIN (86124) Comments: PATIENT NOT FASTINGPERFORMED BY: [facility] Lnxqga1073 [facility] [id number] Ferritin, Serum 133 ng/mL (Normal) Range: 15-150 82-Wcr-365640:10 IRON BINDING CAPACITY Comments: PATIENT NOT FASTINGPERFORMED BY: [facility] Etkatc1954 [facility] [id number] Information: [id number] (TIBC) (95805) Iron Saturation 20 % (Normal) Range: 15-55 Iron, Serum 62 ug/dL (Normal) Range: 35-155 UIBC 241 ug/dL (Normal) Range: 150-375 Iron Bind.Cap.(TIBC) 303 ug/dL (Normal) Range: 250-450 62-Fqn-389305:10 VITAMIN B-12 (CYANOCOBALAMIN) Comments: PATIENT NOT FASTINGPERFORMED BY: [facility]Co[facility] CenterUlaggz3252 [facility] [id number] (73214) Vitamin B12 421 pg/mL (Normal) Range: 211-946 :10 TSH (07652) Comments: PATIENT NOT FASTINGPERFORMED BY: [facility] Uuvwcu9615 [facility] [id number] TSH 1.150 {uIU/mL} (Normal) Range: 0.450-4.500 99-Rmr-146227:37 HgA1C , Office (72868) HgA1C , Office 6.1 % (Normal) Range: 4.6 - 7.1 7-Nkp-427295:10 CBC with manual diff Comments: PATIENT WAS FASTINGPERFORMED BY: [facility] Xowqmd7204 [facility] [id number] Information: [id number] (59384) Immature Grans (Abs) 0.0 {x10E3/uL} (Normal) Range: [...] 3.77-5.28 WBC 8.2 {x10E3/uL} (Normal) Range: 3.4-10.8 0-Ord-130818:10 Metabolic Panel, Comprehensive Comments: PATIENT WAS FASTINGPERFORMED BY: [facility]CoSaint [facility] CenterTrbfbj7634 [facility] [id number] (79026) ALT (SGPT) 11 [iU]/L (Normal) Range: 0-32 [...] Glucose, Serum 129 mg/dL (Abnormal) Range: 65-99 6-Sxx-972398:10 Lipid Panel (08818) Comments: PATIENT WAS FASTINGPERFORMED BY: [facility]CoSaint [facility] CenterSosghi6410 [facility] [id number] LDL/HDL Ratio 1.4 {ratio_units} (Normal) Range: 0.0-3.2 [...] METABOLIC PANEL, Comments: PATIENT NOT FASTINGPERFORMED BY: [employer] Rgpdvr4595 [facility] [id number] Information: [id number] COMPREHENSIVE (76704) ALT (SGPT) 15 [iU]/L (Normal) Range: 0-32 [...] 133 mg/dL (Abnormal) Range: 65-99 :14 TSH (23562) Comments: PATIENT NOT FASTINGPERFORMED BY: [facility]CoSaint [facility] CenterOpxjtd2592 [facility] [id number] TSH 0.182 {uIU/mL} (Abnormal) Range: 0.450-4.500 :40 [...] CHOL 99 mg/dL (Normal) Comments: <200 mg/dL Ltgnansvz867-803 mg/dL Borderline>240 mg/dL High Risk :40 MIACRE [...] CHOL 148 mg/dL (Normal) Comments: <200 mg/dL Kgnvdromb963-050 mg/dL Borderline>240 mg/dL High Risk HDL 46 [...] - 250 nmol/L)Toxicity >100 ng/mL (>250 nmol/L) 68-Rwb-977036:27 HgA1C , Office (69389) HgA1C , Office 6.7 % (Normal) Range: 4.6 - 7.1 :17 METABOLIC PANEL, COMPREHENSIVE Comments: PATIENT WAS FASTINGPERFORMED BY: [facility] Aitkuz3796 [facility] [id number] (65469) ALT (SGPT) 16 [iU]/L (Normal) Range: 0-32 [...] mg/dL (Abnormal) Range: 65-99 :17 LIPID PANEL (40340) Comments: PATIENT WAS FASTINGPERFORMED BY: [employer] Chwidq0939 [facility] [id number] LDL/HDL Ratio 2.0 {ratio_units} (Normal) Range: 0.0-3.2 [...] MANUAL DIFF Comments: PATIENT WAS FASTINGPERFORMED BY: [facility]6370 [facility] [id number] Information: [id number] (06383) Immature Grans (Abs) 0.0 {x10E3/uL} (Normal) Range: [...] B-12 (CYANOCOBALAMIN) Comments: PATIENT WAS FASTINGPERFORMED BY: [employer] Crxemq8031 [facility] [place] [id number] (39580) Vitamin B12 696 pg/mL (Normal) Range: 211-946 :17 Vitamin D Hydroxy (16797) Comments: PATIENT WAS FASTINGPERFORMED BY: [facility] Sfpluq5418 Awller RoadDublin [place] [id number] Vitamin D, 25-Hydroxy 29.3 ng/mL (Abnormal) Range: 30.0-100.0 Comments: Vitamin D deficiency has been defined by the Sachse ofTuscarawas Hospitalcine and an Endocrine Society practice guideline as alevel of serum 25-OH vitamin D less than 20 ng/mL (1,2).The Endocrine Society went on to further define vitamin Dinsufficiency as a level between 21 and 29 ng/mL (2).1. IOM (Sachse of Medicine). 2010. Dietary reference intakes for calcium and D. [place]: The National Academies Press.2. Rachel MF, Yael NC, Dunia HERRERA, et al. Evaluation, treatment, and prevention of vitamin D deficiency: an Endocrine Society clinical practice guideline. JCEM. 2010; 96(7):1911-30. :29 HgA1C , Office (89425) HgA1C , Office 7.0 % (Normal) Range: 4.6 - 7.1 :14 B12 794 pg/mL (Normal) Range: 211-911 Comments: Effective 2012:14 VITD 37.5 ng/mL (Normal) Comments: Vitamin D 25(OH) Status RangeDeficiency <20 ng/mL (50nmol/L)Insufficiency 20 - 30 ng/mL (50 - 75 nmol/L)Sufficiency 30 - 100 ng/mL (75 - 250 nm ol/L)Toxicity >100 ng/mL (250 nmol/L)Effective 201201-Dec-20123-Act-972151:13 CHEST PA AND LATERAL Radiology Report See [...] Tate D.O.December 01, 2012 at 12:40:54 PM [id number] Signed DS/DS If you are the referring physician and would like to consult with theradiologist who provided this i nterpretation, please contact Eulalio Tate D.O. at [phone]. If this radiologist is unavailable, you will bedirected to another radiologist to assist. If you are a patient with a question regarding t his report, pleasecontactyour referring physician directly. Professional Interpretation Provided By: [employer], Phone , These documents contain legally protected [...] 12/01/12 1244 Sign by: Mack Peterson DO 42-Cqw-301698:20 Upper Respiratory Culture Comments: PATIENT NOT FASTINGPERFORMED BY: [facility]CoSaint [facility] CenterYjblzt9510 Sridhar Dosscrystal [place] [id number] Information: SRC: THROAT Result 1 RRF (Normal) Comments: Routine respiratory alton Upper Respiratory Culture Final report (Normal) 88-Htk-230682:06 Rapid Strep Test, Office (25022) Rapid Strep Test, Office Negative (Normal) 22-Dkg-301802:32 BILAT SCRN DIGITAL & CAD Radiology Report [...] Wayne M.D.November 18, 2012 at 12:51:57 PM [id number] Signed GP/GP If you are the referring physician and would like to consult with theradiologist who provid ed this interpretation, please contact Lee Claudio at [phone]. If this radiologist is unavailable, youwill be directed to another radiologist to assist. If you are a patient with a ques tion regarding this report, pleasecontactyour referring physician directly. Professional Interpretation Provided By: [employer], Phone , These documents contain legally pr [...] 11/18/12 1254 Sign by: Teo Wayne MD 7-Tee-364738:24 URINE RANI CULTURE-IDENTIFICATN Comments: PATIENT NOT FASTINGPERFORMED BY: [facility] NetworkUNM Cancer CenterLuopiq6137 [facility] [id number] Information: [id number] (80303) Result 1 MUG (Normal) Comments: Mixed urogenital flora10,000-25,000 colony forming units per mL Urine Final report (Normal) Culture,Comprehensive 70-Ohk-047611:50 METABOLIC PANEL, Comments: PATIENT NOT FASTINGPERFORMED BY: [employer] Txzbqi1570 [facility] [id number] Information: ADD [id number] AND DRAW FEE 99 4594 COMPREHENSIVE (73015) ALT (SGPT) 14 [iU]/L (Normal) Range: 0-32 [...] Glucose, Serum 109 mg/dL (Abnormal) Range: 65-99 0-Zhu-349403:42 HgA1C , Office (78380) HgA1C , Office 6.3 % (Normal) Range: 4.6 - 7.1 :04 Microscopic Examination Comments: PATIENT NOT FASTINGPERFORMED BY: Markafoni MD [id number] Bacteria Few (Normal) Mucus Threads Present (Normal) Cast Type Hyaline casts (Normal) Casts Present {/lpf} (Abnormal) Epithelial Cells (non renal) 0-10 {/hpf} (Normal) Range: 0 - 10 RBC 0-3 {/hpf} (Normal) Range: 0 - 3 WBC 6-10 {/hpf} (Abnormal) Range: 0 - 5 :04 VITAMIN B-12 (CYANOCOBALAMIN) Comments: PATIENT NOT FASTINGPERFORMED BY: [employer]70 [employer] [place] [id number] (49575) Vitamin B12 1228 pg/mL (Abnormal) Range: 211-946 :04 Vitamin D Hydroxy (75676) Comments: PATIENT NOT FASTINGPERFORMED BY: Markafoni MD [id number] Vitamin D, 25-Hydroxy 21.9 ng/mL (Abnormal) Range: 30.0-100.0 Comments: Vitamin D deficiency has been defined by the Sachse ofMedicine and an Endocrine Society practice guideline as alevel of serum 25-OH vitamin D less than 20 ng/mL (1,2).The Endocrine Society went on to further define vitamin Dinsufficiency as a level between 21 and 29 ng/mL (2).1. IOM (Sachse of Medicine). 2010. Dietary reference intakes for calcium and D. [place]: The National Academies Press.2. Rachel MF, Yael MARLEY, Dunia HERRERA, et al. Evaluation, treatment, and prevention of vitamin D deficiency: an Endocrine Society clinical practice guideline. JCEM. 2010; 96(7):1911-30. :04 URINALYSIS, W/ MICRO (75304) Comments: PATIENT NOT FASTINGPERFORMED BY: [employer]70 [facility] [id number] Microscopic Examination See below: (Normal) Nitrite, Urine Negative (Normal) Bilirubin Negative (Normal) Urobilinogen,Semi-Qn 0.2 mg/dL (Normal) Range: 0.0-1.9 Occult Blood Negative (Normal) Ketones Negative (Normal) Glucose Negative (Normal) Protein Negative (Normal) WBC Esterase 1+ (Abnormal) Appearance Clear (Normal) Urine-Color Yellow (Normal) pH 5.5 (Normal) Range: 5.0-7.5 Specific [place] 1.024 (Normal) Range: 1.005-1.030 :04 CBC WITH MANUAL DIFF Comments: PATIENT NOT FASTINGPERFORMED BY: [facility] Stavzz1282 [facility] [id number] Information: [id number] (75583) Immature Grans (Abs) 0.0 {x10E3/uL} (Normal) Range: [...] 3.77-5.28 WBC 7.2 {x10E3/uL} (Normal) Range: 4.0-10.5 39-Zwk-95643:04 METABOLIC PANEL, COMPREHENSIVE Comments: PATIENT NOT FASTINGPERFORMED BY: [facility]CoSaint [facility] CenterVfpwbs9194 [facility] [id number] (56997) ALT (SGPT) 13 [iU]/L (Normal) Range: 0-32 [...] mg/dL (Abnormal) Range: 65-99 :04 LIPID PANEL (47174) Comments: PATIENT NOT FASTINGPERFORMED BY: [employer] [address] [id number] LDL Cholesterol Calc 103 mg/dL (Abnormal) Range: [...] pg/mL (Normal) Range: 211-946 Comments: Performed at: [facility] [address] [id number] Director: Arnold Jefferson PhD, Phone: [phone] :[phone] CMP GAP 9 (Normal) Range: 5-15 [...] 250 nmol/L) Toxicity >100 ng/mL (250 nmol/L)Effective 201215-Aug-201211-Avp-265705:20 Metabolic Panel, Basic Comments: PATIENT NOT FASTINGPERFORMED BY: [facility]6370 [facility] [id number] Information: [id number] (67543) Calcium, Serum 10.2 mg/dL (Normal) Range: 8.6-10.2 [...] Glucose, Serum 99 mg/dL (Normal) Range: 65-99 0-Fir-660130:24 Microscopic Examination Comments: PATIENT NOT FASTINGPERFORMED BY: [facility]6370 [facility] [id number] Bacteria Few (Normal) Mucus Threads Present (Normal) Epithelial Cells (non renal) 0-10 {/hpf} (Normal) Range: 0 - 10 RBC 0-3 {/hpf} (Normal) Range: 0 - 3 WBC 6-10 {/hpf} (Abnormal) Range: 0 - 5 8-Ecg-797530:24 Vitamin D Hydroxy (75414) Comments: PATIENT NOT FASTINGPERFORMED BY: [facility]6370 [facility] [id number] Vitamin D, 25-Hydroxy 21.7 ng/mL (Abnormal) Range: 30.0-100.0 Comments: Vitamin D deficiency has been defined by the Sachse ofMedicine and an Endocrine Society practice guideline as alevel of serum 25-OH vitamin D less than 20 ng/mL (1,2).The Endocrine Society went on to further define vitamin Dinsufficiency as a level between 21 and 29 ng/mL (2).1. IOM (Sachse of Medicine). 2010. Dietary reference intakes for calcium and D. [place]: The National Academies Press.2. Rachel MF, Yael MARLEY, Dunia HERRERA, et al. Evaluation, treatment, and prevention of vitamin D deficiency: an Endocrine Society clinical practice guideline. JCEM. 2010; 96(7):1911-30. 6-Pax-554287:24 VITAMIN B-12 (CYANOCOBALAMIN) Comments: PATIENT NOT FASTINGPERFORMED BY: [employer]70 [facility]Lander.ruGranville Medical Center [id number] (99150) Vitamin B12 431 pg/mL (Normal) Range: 211-946 :24 URINALYSIS, W/ MICRO (55175) Comments: PATIENT NOT FASTINGPERFORMED BY: [employer]70 xLander.ruGranville Medical Center [id number] Microscopic Examination MICRON (Normal) Comments: Microscopic follows if indicated. Microscopic Examination See below: (Normal) Nitrite, Urine Negative (Normal) Urobilinogen,Semi-Qn 0.2 mg/dL (Normal) Range: 0.0-1.9 Bilirubin Negative (Normal) Ketones Negative (Normal) Occult Blood Negative (Normal) Glucose Negative (Normal) Protein Negative (Normal) WBC Esterase Negative (Normal) Appearance Clear (Normal) pH 6.5 (Normal) Range: 5.0-7.5 Urine-Color Yellow (Normal) Specific [place] 1.022 (Normal) Range: 1.005-1.030 :24 CBC WITH MANUAL DIFF Comments: PATIENT NOT FASTINGPERFORMED BY: [employer]6370 xLander.ruGranville Medical Center [id number] Information: [id number] (23177) Immature Grans (Abs) 0.0 {x10E3/uL} (Normal) Range: [...] 3.77-5.28 WBC 7.9 {x10E3/uL} (Normal) Range: 4.0-10.5 3-Enb-508867:24 METABOLIC PANEL, COMPREHENSIVE Comments: PATIENT NOT FASTINGPERFORMED BY: [facility]CoSaint [facility] CenterTrncad6548 [facility] [id number] (29741) ALT (SGPT) 16 [iU]/L (Normal) Range: 0-32 [...] Glucose, Serum 107 mg/dL (Abnormal) Range: 65-99 9-Xyl-094726:24 TSH (10573) Comments: PATIENT NOT FASTINGPERFORMED BY: [facility] NetworkUNM Cancer CenterZlgseo4616 [facility] [id number] TSH 2.000 {uIU/mL} Range: 0.450-4.500 (Normal) CCP Antibodies IgG/IgA 1 {units} (Normal) Comments: PATIENT NOT FASTINGPERFORMED BY: [employer] NetworkRachel [place] 7465670 [facility] [id number] BY: [employer] [id number] :39 Range: 0-19 Comments: Negative <20 Weak positive 20 - 39 Moderate positive 40 - 59 Strong positive >59 9-Ffo-939200:39 Systemic Lupus Profile Comments: PATIENT NOT FASTINGPERFORMED BY: [employer] NetworkRachel [place] 7465670 [facility] [id number] BY: [employer] [id number] Information: [id number] (20623) Anti-DNA (DS) Ab Qn <1 {IU/mL} (Normal) Range: 0-9 Comments: Negative <5 Equivocal 5 - 9 Positive >9 Sjogren's Anti-SS-B 0.5 {AI} (Normal) Range: 0.0-0.9 Sjogren's Anti-SS-A 0.3 {AI} (Normal) Range: 0.0-0.9 Antichromatin Antibodies <0.2 {AI} (Normal) Range: 0.0-0.9 RA Latex Turbid. 8.5 {IU/mL} (Normal) Range: 0.0-13.9 [place] Antibodies <0.2 {AI} (Normal) Range: 0.0-0.9 BENCH MOL[employer] APPRENTICE Antibodies <0.2 {AI} (Normal) Range: 0.0-0.9 :27 HgA1C , Office (57495) HgA1C , Office 6.2 % (Normal) Range: 4.6 - 7.1 :27 Blood Glucose , Office (07822) Blood Glucose , Office 108 (Normal) :45 [...] D deficiency has been defined by the Sachse ofMedicine and an Endocrine Society practice guideline as alevel of serum 25-OH vitamin D less than 20 ng/mL (1,2).The Endocrine Society went on to further define vitamin Dinsufficiency as a level between 21 and 29 ng/mL (2).1. IOM (Sachse of Medicine). 2010. Dietary reference intakes for calcium and D. [place]: The National Academies Press.2. Rachel MF, Yael NC, Dunia HERRERA, et al. Evaluation, treatment, and prevention of vitamin D deficiency: an Endocrine Society clinical practice guideline. JCEM. 2010; 96(7): 1911-30.Performed at: [address] [id number] Director: Arnold Jefferson PhD, Phone: [phone] 74-Soy-924175:59 Blood Glucose , Office (93166) Blood Glucose , Office 131 (Normal) :58 HgA1C , Office (80764) HgA1C , Office 6.8 % (Normal) Range: [...] mg/dL suggests DIABETES MELLITUS per A.D.A. criteria. 31-Afw-540182:12 LIPID LDL 104 mg/dL (Normal) Range: 0-130 [...] D deficiency has been defined by the Sachse ofMedicine and an Endocrine Society practice guideline as alevel of serum 25-OH vitamin D less than 20 ng/mL (1,2).The Endocrine Society went on to further define vitamin Dinsufficiency as a level between 21 and 29 ng/mL (2).1. IOM (Sachse of Medicine). 2010. Dietary reference intakes for calcium and D. [place]: The National Academies Press.2. Rachel MF, Yael MARLEY, Dunia HERRERA, et al. Evaluation, treatment, and prevention of vitamin D deficiency: an Endocrine Society clinical practice guideline. JCEM. 2010; 96(7): 1911-30.Performed at: [address] [id number] Director: Tona Emmanuel MD, Phone: [phone] 45-Lxf-156610:15 HgA1C , Office (45016) HgA1C , Office 5.8 % (Normal) Range: 4.6 - 7.1 44-Cyv-889702:15 Blood Glucose , Office (39733) Blood Glucose , Office 113 (Normal) :30 [...] D deficiency has been defined by the Sachse ofMedicine and an Endocrine Society practice guideline as alevel of serum 25-OH vitamin D less than 20 ng/mL (1,2).The Endocrine Society went on to further define vitamin Dinsufficiency as a level between 21 and 29 ng/mL (2).1. IOM (Sachse of Medicine). 2010. Dietary reference intakes for calcium and D. [place]: The National Academies Press.2. Rachel MF, Yael NC, Dunia HERRERA, et al. Evaluation, treatment, and prevention of vitamin D deficiency: an Endocrine Society clinical practice guideline. JCEM. 2010; 96(7): 1911-30.Performed at: [address] [id number] Director: Tona Emmanuel MD, Phone: [phone] 27-Xrf-145581:02 CTA NECK W/WO CONTRAST Radiology Report See [...] ologist regarding this report, please call our 71M4llhrphv line @ Dictated on 10/08/11 [address],Loraribed on 10/09/11 0856 by ITS IMPORTSign by Juana Wayne MD on 10/09/11 0857 Sign by: Teo Wayne MD 00-Bjd-284820:00 BILAT SCRN DIGITAL & CAD Radiology Report [...] radiologist regarding this report, please call our 37V5qzddxst line @ Dictated on 09/18/11 1040 by Ori clifton MD,Deweybed on 09/20/11 0901 by ITS IMPORTSign by Teo Wayne MD on 09/20/11 0902 Sign by: Hema STREETER,Teo 99-Nhd-19958:59 DEXA BONE DENSITY STUDY (HP) Radiology Report [...] regarding this re port, please call our 63V8agxeotz line @ Dictated on 09/18/11 [address]ER,Davidranscribed on 09/19/11 1416 by ITS IMPORTSign by Teo Wayne MD on 09/19/11 141 Sign by: Teo Wayne MD 77-Svv-680382:17 HgA1C , Office (41010) HgA1C , Office 5.9 % (Normal) Range: 4.6 - 7.1 51-Nrg-540668:17 Blood Glucose , Office (27729) Blood Glucose , Office 77 (Normal) :44 [...] >240 mg/dL High Risk :44 VIT D,25 04103 22.3 ng/mL (Abnormal) Range: 30.0-100.0 Comments: Vitamin D deficiency has been defined by the Sachse ofMedicine and an Endocrine Society practice guideline as alevel of serum 25-OH vitamin D less than 20 ng/mL (1,2).The Endocrine Society went on to further define vitamin Dinsufficiency as a level between 21 and 29 ng/mL (2).1. IOM (Sachse of Medicine). 2011. Dietary reference intakes for calcium and D. [place]: The National Academies Press.2. Rachel MF, Yael MARLEY, Dunia HERRERA, et al. Evaluation, treatment, and prevention of vitamin D deficiency: an Endocrine Society clinical practice guideline. JCEM. 2010; 96(7): 1911-30.Performed at: - [facility] [address] [id number] Director: Tona Emmanuel MD, Phone: [phone] :[phone] HgA1C , Office (98049) HgA1C , Office 6.6 % (Normal) Range: 4.6 - 7.1 :34 Blood Glucose , Office (37543) Blood Glucose , Office 116 (Normal) :50 [...] Range: 4.4-11.0 :50 COMP METABOLIC Comments: appt 34255 GAP 10 (Normal) Range: 5-15 CO2 26.0 [...] {uIU/mL} (Normal) Range: 0.358-3.74 :50 VIT D,25 68856 41.3 ng/mL (Normal) Range: 32.0-100.0 Comments: Effective June 18, 2011 Vitamin D, 25-Hydroxy reference intervals will be changing to 30-100. .Recent studies consider the lower li lalo of 32.0 ng/mL to be athreshold for optimal health.Pepito ANNE. J Nutr. 2004;135(2):317-22.Performed at: [facility] [employer] [id number] Director: Tona Emmanuel MD, Phone: [phone] :[phone] VITAMIN B12 806 pg/mL (Normal) Range: 254-1320 Comments: There is a low frequency possibility that high titers ofintrinsic blocking antibodies may not be completely inactivated during the reaction pretreatment stepof this testing method. If test results are i n conflictwith the clinical diagnosis, patient should be testedfor the presence of intrinsic factor blocking antibodies. 6-Tyd-246375:09 Comp. Metabolic Panel (14) Comments: PATIENT WAS FASTINGPERFORMED BY: [facility] [id number] ALT (SGPT) 40 [iU]/L (Normal) Range: 0-40 [...] With LDL/HDL Comments: PATIENT WAS FASTINGPERFORMED BY: [facility] [id number] Ratio LDL Cholesterol Calc 74 mg/dL (Normal) [...] 0.192 {uIU/mL} Comments: PATIENT WAS FASTINGPERFORMED BY: [facility] [id number] 09 (Abnormal) Range: 0.450-4.500 : Vitamin B12 417 pg/mL (Normal) Comments: PATIENT WAS FASTINGPERFORMED BY: [facility] [id number] 09 Range: 211-946 05-Yrs-570553:22 UNILAT LT DIAG DIGITAL & CAD Radiology [...] 02/23/11 151 Sign by: Teo Wayne MD 07-Fsc-32376:58 CBCD,SMEAR DIFF Comments: appt 10/24/10 RED CELL [...] {uIU/mL} (Abnormal) Range: 0.358-3.74 :58 VIT D,25 00053 22.0 ng/mL (Abnormal) Comments: appt 10/24/10 Range: 32.0-100.0 Comments: Recent studies consider the lower limit of 32.0 ng/mL to tammy threshold for optimal health.Pepito ANNE. J Nutr. 2004;135(2):317-22.Performed at: [facility] [place] [address]Lab Director: Tona Emmanuel MD, Phone: [phone] :58 VITAMIN B12 285 pg/mL (Normal) Range: [...] Thin Prep VialPATIENT NOT FASTINGPERFORMED BY: [facility] [address] [id number] Information: [id number] ([id number]) Note: PAPSMR (Normal) Comments: The Pap smear [...] Screening for malignant neoplasm of the cervixConner Montse, Elementary Reading Specialist (ASCP) 99-Vjf-436104:26 BREAST UNILATERAL Radiology Report See Note (Normal) [...] on 08/28/10 1453 Sign by: ANTHONY PALOMARES 05-Rdw-653613:58 UNILAT LT DIAG DIGITAL & CAD Radiology [...] Category 3: Probably Benign Finding - Initial Rgooy-YujzuljmFackro-cx Suggested. A letter regarding these results will be sent tothepatient by the facility within 30 days. Approximately 10% of breast cancers are not detected by mammography. Anormal mammogram should not delay biopsy of a clinically suspiciousabnormality. Dictated on 08/24/10 1206 by ANTHONY PALOMARESTranscribed on 08/24/10 135 by ITS IMPORTSign by ANTHONY PALOMARES on 08/24/10 135 Sign by: ANTHONY PALOMARES 57-Eyu-73508:43 BILAT SCRN DIGITAL & CAD Radiology Report [...] on 08/18/101451 Sign by: ANTHONY PALOMARES MD 5-Ixb-222990:14 HgA1C , Office (78976) HgA1C , Office 6.5 % (Normal) Range: 4.6 - 7.1 0-Ctw-089936:14 Blood Glucose , Office (01136) Blood Glucose , Office 176 (Normal) :30 [...] CREAT 161.2 mg/dL (Normal) : VIT D,25 25833 27.7 ng/mL Range: 32.0-100.0 30 (Abnormal) Comments: Recent studies consider the lower limit of 32.0 ng/mL to tammy threshold for optimal health.Pepito ANNE. J Nutr. 2004;135(2):317- 22.Performed at: - [facility] [id number]Lab Director: Tona Emmanuel MD, Phone: [phone] : VITAMIN B12 449 pg/mL (Normal) Range: [...] {units} (Normal) Comments: PATIENT NOT FASTINGPERFORMED BY: [employer] Cnfogw1524 [facility] [id number] BY: [address] [id number] 0:44 Range: 0-19 Comments: Negative <20 Weak positive 20 - 39 Moderate positive 40 - 59 Strong positive >59 Comment: SPRCS (Normal) Comments: PATIENT NOT FASTINGPERFORMED BY: [employer] Patient Home Monitoring [facility] [id number] BY: [address] [id number] 0:44 Comments: Effective April 25, 2009 order code 819540 CCP IgGAntibodies has been replaced due to an updated reagentversion 3.1. For this reason [facility] has provided youwith a new order code 690764 CCP Antibodies IgG/IgA. 52-Xzo-437769:44 Vitamin D Hydroxy Comments: PATIENT NOT FASTINGPERFORMED BY: [employer] Jdsull9909 [facility] [id number] BY: [address] [id number] (39948) Vitamin D, 25-Hydroxy 30.9 ng/mL (Abnormal) Range: 32.0-100.0 Comments: Recent studies consider the lower limit of 32.0 ng/mL to be athreshold for optimal health.Pepito ANNE. J Nutr. 2004;135(2):317-22. 31-Opm-407401:44 SED RATE ERYTHROCYTE Comments: PATIENT NOT FASTINGPERFORMED BY: [place]Stack[place] [id number] [facility] [id number] BY: [address] [id number] (89220) Sedimentation Rate-Westergren 4 mm/h (Normal) Range: 0-30 46-Ewa-286176:44 C-REACTIVE PROTEIN Comments: PATIENT NOT FASTINGPERFORMED BY: [place] [id number] [facility] [id number] BY: [address] [id number] (79756) C-Reactive Protein, Quant 2.5 mg/L (Normal) Range: 0.0-4.9 79-Aym-236648:44 TSH (02601) Comments: PATIENT NOT FASTINGPERFORMED BY: [address] [id number] BY: [address] [id number] TSH 2.050 {uIU/mL} (Normal) Range: 0.450-4.500 69-Zat-431742:44 RHEUMATOID FACTOR-QUANT Comments: PATIENT NOT FASTINGPERFORMED BY: [place] [id number] [facility] [id number] BY: [address] [id number] (15584) RA Latex Turbid. 8.4 {IU/mL} (Normal) Range: 0.0-13.9 73-Ojc-237962:44 MELI (ANTINUCLEAR ANTIBODY) Comments: PATIENT NOT FASTINGPERFORMED BY: [facility]6370 [facility] [id number] BY: [address] [id number] (78204) MELI Direct Negative (Normal) 30-Ntm-966735:44 CBC WITH MANUAL DIFF Comments: PATIENT NOT FASTINGPERFORMED BY: [place] [id number] [facility] [id number] BY: [address] [id number] Inf ormation: ADD [id number] AND DRAW FEE 99 3628 (88758) Immature Grans (Abs) 0.0 {x10E3/uL} (Normal) Range: [...] 3.80-5.10 WBC 6.8 {x10E3/uL} (Normal) Range: 4.0-10.5 35-Ily-351211:44 METABOLIC PANEL, Comments: PATIENT NOT FASTINGPERFORMED BY: CB [facility] Zlrgvv6814 [facility] [id number] BY: BN [facility] [address] [id number] [facility] (69429) ALT (SGPT) 21 [iU]/L (Normal) Range: 0-40 [...] (Abnormal) Range: 65-99 :33 HgA1C , Office (80532) HgA1C , Office 6.8 % (Normal) Range: 4.6 - 7.1 :33 Blood Glucose , Office (95385) Blood Glucose , Office 135 (Normal) :22 [...] CHOL 157 mg/dL (Normal) Comments: <200 mg/dL Mynwcfmdr371-126 mg/dL Borderline>240 mg/dL High Risk :22 LIVER ALB 3.5 g/dL (Normal) Range: 3.4-5.0 ALK P 97 U/L (Normal) Range: 50-136 ALT 21 U/L (Normal) Range: 12-78 AST 16 U/L (Normal) Range: 15-37 D BILI 0.12 mg/dL (Normal) Range: 0.00-0.30 T BILI 0.40 mg/dL (Normal) Range: 0.00-1.00 T PROT 6.5 g/dL (Normal) Range: 6.4-8.2 :22 TSH 1.54 {uIU/mL} Range: 0.358-3.74 (Normal) :22 VIT D,25 86787 36.8 ng/mL (Normal) Range: 32.0-100.0 Comments: Recent studies consider the lower limit of 32.0 ng/mL to tammy threshold for optimal health.Pepito ANNE. J Nutr. 2004;135(2):317-22.Performed at: [facility] [employer] [address] 296Lab Director: Tona Emmanuel MD, Phone: [phone] :[phone] VITAMIN B12 264 pg/mL (Normal) Range: 254-1320 Comments: There is a low frequency possibility that high titers ofintrinsic blocking antibodies may not be completelyinactivated during the reaction pretreatment stepof this testing method. If test results are in conflictwith the clinical diagnosis, patient should be testedfor the presence of intrinsic factor blocking antibodies. : Amylase, Serum 92 U/L (Normal) Comments: PERFORMED BY: [employer] [id number] Range: 31-124 15-Qvx-912985:34 CBC With Differential/Platelet Comments: PERFORMED BY: [facility] CenterMsjbtt6315 [facility] [id number] Baso (Absolute) 0.0 {x10E3/uL} (Normal) Range: 0.0-0.2 [...] 3.80-5.10 WBC 7.5 {x10E3/uL} (Normal) Range: 4.0-10.5 63-Wag-012914:34 Comp. Metabolic Panel (14) Comments: PERFORMED BY: [facility] CenterNkfbhe8552 [facility] [id number] ALT (SGPT) 18 [iU]/L (Normal) Range: 0-40 [...] Serum 57 U/L (Normal) Comments: PERFORMED BY: [facility] Nylmwr3885 [facility] [id number] 13:34 Range: 0-59 03-Feb-20109:00 GALLBLADDER Radiology Report See Note (Normal) Comments: Exam Number: [id number] CLINICAL:Epigastric pain and bloating. ABDOMINAL ULTRASOUND TECHNIQUE:Transabdominal [...] hydronephrosis,etiology indeterminate. Reported By: KATHRYN MUNOZ M.D. 1-Zco-209076:19 CBC WITH MANUAL DIFF Comments: PATIENT NOT FASTINGPERFORMED BY: [facility] Vjwmrr2461 [facility] [id number] Information: [id number] (87691) Baso (Absolute) 0.1 {x10E3/uL} (Normal) Range: 0.0-0.2 [...] 3.80-5.10 WBC 9.9 {x10E3/uL} (Normal) Range: 4.0-10.5 6-Zxe-973216:19 METABOLIC PANEL, COMPREHENSIVE Comments: PATIENT NOT FASTINGPERFORMED BY: [facility] CenterYblrds0510 [facility] [id number] (60532) ALT (SGPT) 19 [iU]/L (Normal) Range: 0-40 [...] Report See Note (Normal) Comments: Exam Number: [id number] CLINICAL:This is a 69-year-old female patient with [...] as discussed above. Reported By: TEO WAYNE 5-Ijp-247592:12 HgA1C , Office (06026) HgA1C , Office 7.1 % (Normal) Range: 4.6 - 7.1 6-Pyb-880943:12 Blood Glucose , Office (21140) Blood Glucose , Office 129 (Normal) 29-Dec-20099:45 [...] CHOL 155 mg/dL (Normal) Comments: <200 mg/dL Gubxnvpsm775-767 mg/dL Borderline>240 mg/dL High Risk :45 VIT D,25 52120 42.5 ng/mL (Normal) Range: 32.0-100.0 Comments: Recent studies consider the lower limit of 32.0 ng/mL to tammy threshold for optimal health.Pepito ANNE. J Nutr. 2004;135(2):317-22.Performed at: - [facility] [id number] Director: Tona Emmanuel MD :53 LIPID HDL [...] CHOL 128 mg/dL (Normal) Comments: <200 mg/dL Fegdrkmra368-826 mg/dL Borderline>240 mg/dL High Risk :53 MICROALB:CRE UR MALB:CREAT 19.1 {mg/g_CRE} (Normal) MICROALBUMIN,UR 29.1 mg/L (Normal) UR CREAT 152.0 mg/dL (Normal) :53 TSH 0.93 {uIU/mL} (Normal) Range: 0.358-3.74 :53 VIT D,25 77117 22.7 ng/mL (Abnormal) Range: 32.0-100.0 Comments: Recent studies consider the lower limit of 32.0 ng/mL to tammy threshold for optimal health.Pepito ANNE. J Nutr. 2004;135(2):317-22.Performed At: [facility] [place], [place] [phone] :53 VITAMIN B12 337 pg/mL (Normal) Range: 254-1320 :09 HgA1C , Office (68681) HgA1C , Office 7.1 % (Normal) Range: 4.6 - 7.1 :09 Blood Glucose , Office (63093) Blood Glucose , Office 108 (Normal) 2-Hfm-005818:33 KNEE,4 OR MORE VIEWS (MT) Radiology Report See Note (Normal) Comments: Exam Number: [id number] CLINICAL:Pain X-RAY EXAMINATION RIGHT KNEE TECHNIQUE:Three view(s) [...] Report See Note (Normal) Comments: Exam Number: [id number] CLINICAL:Pain X-RAY EXAMINATION: RIGHT TIBIA AND FIBULA [...] (MT) Radiology See Note Comments: Exam Number: [id number] CLINICAL:Pain X-RAY EXAMINATION: RIGHT FEMUR TECHNIQUE:Two views [...] Visualized femur. Reported By: RAYMOND ARRIAGA M.D. 7-Bch-670096:43 UNILAT LT DIAG DIGITAL & CAD Radiology Report See Note (Normal) Comments: Exam Number: [id number] MAMMOGRAM, UNILATERAL LEFT DIAGNOSTIC DIGITAL AND CAD HISTORYAbnormal mammogram, left breast. TECHNIQUEFull field digital images were obtained in left true lateral, rolledcranio caudal, and spot mediolateral oblique and craniocaudalprojections. CAD images were reviewed. The current study is compared to the examinations of March 12, 2006,and June 21, 2009. FINDINGSThere is a hcoxhtoq-br-wveolt extent of fibroglandular parenchymapresent. There is no [...] wereal so examined with computer-aided detection software ([employer], [employer].). Reported By: ANTHONY PALOMARES M.D. 42-Ngc-699702:04 BILAT SCRN DIGITAL & CAD Radiology Report See Note (Normal) Comments: Exam Number: [id number] MAMMOGRAM, BILATERAL SCREENING DIGITAL AND CAD HISTORYRoutine [...] werealso examined with computer- aided detection software ([employer] [facility] Reported By: ANTHONY PALOMARES M.D. 86-Vgv-435616:03 DEXA BONE DENSITY STUDY () Radiology Report See Note (Normal) Comments: Exam Number: [id number] BONE DENSITOMETRY HISTORYOsteopenia. TECHNIQUE Bone densitometry of the lumbar spine and both hips is now beingperformed. The best criteria for evaluation of osteoporosis is theT-value, which represents the comparison of the patient's bone mass flako expected peak bone mass. For most patients, the mean T-value of V6wbfbsia L4 is used to evaluate the lumbar spine. To evalua te the hip,the lower T-value of the femoral neck or total hip is used. FINDINGSIn this patient, the mean T-value of L1 through L4 is 0.3 which isnormal. Bone mineral density is measured at 18.3% greate r than mu7042.Digital lateral view for evaluation of vertebral deformity [...] within normallimits. Reported By: ANTHONY PALOMARES M.D. 82-Gwn-848625:09 BRAIN/HEAD W/WO CONTRAST Radiology Report See Note (Normal) Comments: Exam Number: [id number] CLINICAL:69 year old female with altered mental [...] CREAT 123.4 mg/dL (Normal) 07-Jun-2009 VIT D,25 55734 19.7 ng/mL Range: 32.0-100.0 9:02 (Abnormal) Comments: Recent studies consider the lower limit of 32.0 ng/mL to tammy threshold for optimal health.Pepito ANNE. J Nutr. 2004;135(2):317- 22.Performed At: [facility] [place], [place] [id number] 07-Jun-2009 VITAMIN B12 328 pg/mL (Normal) Range: 254-1320 9:02 11-Feb-2009 Homocyst(e)ine, Plasma 9.8 umol/L (Normal) Comments: PERFORMED BY: [employer] [id number] 14:28 Range: 0.0-15.0 11-Feb-2009 Methylmalonic Acid, 336 nmol/L (Normal) Comments: PERFORMED BY: [employer] [id number] 14:28 Serum Range: 73-376 Comments: The reference range for methylmalonic acid has been set at +3sd abovethe mean for healthy blood bank donors. In the clinical assessment ofpatients with megaloblastic anemias a cutoff of +3sd provides gr eaterspecificity in the diagnosis of the vitamin deficiency states,despite the sacrifice of some sensitivity. 11-Feb-2009 TSH 2.700 {uIU/mL} Comments: PERFORMED BY: [employer] [address] [id number] 14:28 (Normal) Range: 0.450-4.500 11-Feb-2009 Vitamin B12 231 pg/mL (Normal) Comments: PERFORMED BY: [employer] [address] [id number] 14:28 Range: 211-911 5-Jjg-393014:09 HAND,MIN 3 VIEWS (MT) Radiology Report See Note (Normal) Comments: Exam Number: [id number] RIGHT WRIST CLINICAL DATAFell and injured the [...] osteoarthritis right hand. Reported By: FERNANDO TUCKER 3-Scg-826655:09 WRIST,MIN 3 VIEWS (MT) Radiology Report See Note (Normal) Comments: Exam Number: [id number] RIGHT WRIST CLINICAL DATAFell and injured the [...] COMPREHENSIVE Comments: PATIENT WAS FASTINGPERFORMED BY: [facility] CenterOsbtiy7924 [facility] [id number] 68914) A/G Ratio 1.9 (Normal) Range: 1.1-2.5 Albumin, [...] 141 mmol/L (Normal) Range: 135-145 :42 TSH (10357) Comments: PATIENT WAS FASTINGPERFORMED BY: [employer] Ctnsud2802 [facility] [id number] TSH 4.980 {uIU/mL} (Abnormal) Range: 0.450-4.500 :42 MICROALBUMIN: CREATININE RATIO Comments: PATIENT WAS FASTINGPERFORMED BY: [facility] NetworkSaint [facility] Medical CenterSstbfv3986 [facility] [id number] (31357) AND (98316) Creatinine, Urine 130.9 mg/dL (Normal) Range: 15.0-278.0 Microalb/Creat Ratio 66.4 {ug/mg_creat} (Abnormal) Range: 0.0-30.0 Microalbumin, Urine 86.9 ug/mL (Abnormal) Range: 0.0-17.0 :42 LIPID PANEL (17985) Comments: PATIENT WAS FASTINGPERFORMED BY: [employer] Nnuxpu2161 [facility] [id number] Cholesterol, Total 148 mg/dL (Normal) Range: 100-199 HDL Cholesterol 42 mg/dL (Normal) Comments: According to ATP-III Guidelines, HDL-C >59 mg/dL is considered anegative risk factor for CHD. LDL Cholesterol Calc 78 mg/dL (Normal) Range: 0-99 LDL/HDL Ratio 1.9 {ratio_units} (Normal) Range: 0.0-3.2 Triglycerides 141 mg/dL (Normal) Range: 0-149 VLDL Cholesterol Priscilla 28 mg/dL (Normal) Range: 5-40 :42 CBC WITH MANUAL DIFF (68944) Comments: PATIENT WAS FASTINGClinical Information: ADD DRAW FEE 314389 ADD J 19515 PERFORMED BY: [facility] Pdpzau6351 [facility] [id number] Baso (Absolute) 0.1 {x10E3/uL} (Normal) Range: 0.0-0.2 [...] (CYANOCOBALAMIN) Comments: PATIENT WAS FASTINGPERFORMED BY: [facility]Co[facility] CenterDlztmm2699 [facility] [id number] (85149) Vitamin B12 232 pg/mL (Normal) Range: 211-911 3-Oof-602741:06 Blood Glucose , Office (61348) Blood Glucose , Office 155 (Normal) :27 [...] (Normal) Range: 0.34-4.82 :27 HgA1C , Office (60559) Comments: done>Wf. HgA1C , Office 6.2 % (Normal) Range: 4.6 - 7.1 :27 Blood Glucose , Office (79407) Comments: done>Wf. Blood Glucose , Office 152 [...] for patient's is the eGFRmultiplied by 1.212. [facility] Laboratory uses the abbreviated Modification [...] Disease W/O Kidney Disease>/= 90 Stage One Dtyanc36 - 89 Stage Two Suspect Decrease d [...] T PROT 7.3 g/dL (Normal) Range: 6.4-8.2 1-Ywk-583793:55 LIPID CHOL 287 mg/dL (Abnormal) Comments: <200 [...] mg/dL VLDL 50 mg/dL (Abnormal) Range: 40 3-Fas-305511:55 MICROALB:CRE UR MALB:CREAT 28.3 {mg/g_CRE} (Normal) MICROALBUMIN,UR 41.7 mg/L (Normal) UR CREAT 147.6 mg/dL (Normal) :55 TSH 5.53 {uIU/mL} (Abnormal) Range: 0.34-4.82 :25 TSH 0.16 {uIU/mL} (Abnormal) Range: 0.34-4.82 :31 HgA1C , Office (12945) Comments: done HgA1C , Office 6.5 % (Normal) Range: 4.6 - 7.1 :31 Blood Glucose , Office (88038) Comments: done Blood Glucose , Office 128 (Normal) :01 TSH 5.15 {uIU/mL} (Abnormal) Range: 0.34-4.82 :12 HgA1C , Office (02320) Comments: done HgA1C , Office 6.2 % (Normal) Range: 4.6 - 7.1 :12 Blood Glucose , Office (42367) Comments: done Blood Glucose , Office 187 [...] Serum 117 ng/mL (Normal) Comments: PERFORMED BY: [facility] [id number] Range: 10-291 :33 Iron and TIBC Comments: PERFORMED BY: [facility] [id number] Iron Bind.Cap.(TIBC) 304 ug/dL (Normal) Range: 250-450 Iron Saturation 26 % (Normal) Range: 15-55 Iron, Serum 78 ug/dL (Normal) Range: 35-155 UIBC 226 ug/dL (Normal) Range: 150-375 : Vitamin B12 412 pg/mL (Normal) Comments: PERFORMED BY: [facility] [id number] Range: 211-911 :56 LIPID CHOL 222 [...] (Normal) Range: 6.4-8.2 :07 HgA1C , Office (36836) Comments: done HgA1C , Office 5.9 % (Normal) Range: 4.6 - 7.1 :07 Blood Glucose , Office (38115) Comments: done Blood Glucose , Office 132 [...] mg/dL (Abnormal) Range: 34-200 Comments: Performed At: [address] [id number] :08 IRON+TIBC IRON SATURATION 17.9 % (Normal) [...] mg/dL (Normal) Range: 34-200 Comments: Performed At: [address] [id number] :56 IRON+TIBC IRON SATURATION 17.1 % (Normal) [...] 1.49 INDETERMINANT > OR = 1.50 SUGGEST MT :05 CPK TOTAL 149 U/L (Normal) Comments: Precautions*: NOT APPLICABLEINDICATE CK '1', '2', '3', OR 'R' FOR RANDOM: 2 Range: 215 :05 CPKMB 1.1 ng/mL (Normal) Comments: Precautions*: NOT APPLICABLEINDICATE CK '1', '2', '3', OR 'R' FOR RANDOM: 2 Range: 0.0-5.0 Comments: CK-MB and RI Interpretation MB Relative Index Non-AMI <or= 5 NA Indeterminate > 5 <or= 4 AMI > 5 > 4 9-Yqs-098342:05 TROPONIN-I < 0.04 ng/mL (Normal) Comments: Precautions*: NOT APPLICABLEINDICATE CK '1', '2', '3', OR 'R' FOR RANDOM: 2 Comments: TROPONIN-I EXPECTED VALUES < 0.50 NEGATIVE 0.50 - 1.49 INDETERMINANT > OR = 1.50 SUGGEST MT :15 PRO TIME Comments: Precautions*: NOT APPLICABLE INR 1.0 (Normal) PROTIME 12.6 s (Normal) Range: 11.7-13.3 :15 TROPONIN-I < 0.04 ng/mL (Normal) Comments: Precautions*: NOT APPLICABLE Comments: TROPONIN-I EXPECTED VALUES < 0.50 NEGATIVE 0.50 - 1.49 INDETERMINANT > OR = 1.50 SUGGEST MT :00 BMP Comments: COMMENTS: FEARONPrecautions*: NOT APPLICABLEINDICATE [...] 1.49 INDETERMINANT > OR = 1.50 SUGGEST MT :48 HgA1C , Office (72946) HgA1C , Office 6.4 % (Normal) Range: 4.6 - 7.1 :48 Blood Glucose , Office (85353) Blood Glucose , Office 113 (Normal) Plan [...] Indication: Double vision Double vision : Reviewed Tank Calibrator Letter Indication: Double vision Fatty liver : [...] BMI 36.0-36.9,adult Right hip pain : Reviewed Tank Calibrator Letter Indication: Right hip pain Right hip [...] (monoclonal gammopathy of unknown significance) : Reviewed Tank Calibrator Letter- stable and discharged from onc Indication: [...] Fall down steps, initial encounter : Reviewed Tank Calibrator Letter Indication: Fall down steps, initial encounter [...] infarction, unspecified Cerebral infarction, unspecified : Reviewed Tank Calibrator Letter Indication: Cerebral infarction, unspecified Upper respiratory [...] Planned Observations CBC, PLATELETS & AUT DIFF (01956)Indication: Other vitamin B12 deficiency anemia On: :17 Request TSH (42089)Indication: Abnormal TSH On: :38 Request T4, FREE (THYROXINE) (45438)Indication: Abnormal TSH On: :38 Request T3, FREE (TRIDOTHYRONINE) (07557)Indication: Abnormal TSH On: :38 Request ANTI-LIVER/KIDNEY MICROSOMAL ANTIBODY (46421)Indication: Elevated liver enzymes On: 68-Kap-962193:34 Request TSH (43566)Indication: Abnormal TSH On: :31 Request T4, FREE (THYROXINE) (79833)Indication: Abnormal TSH On: :31 Request T3, FREE (TRIDOTHYRONINE) (65279)Indication: Abnormal TSH On: 72-Zfc-386497:31 Request BETA-2 MICROGLOBULIN (97519)Indication: Abnormal blood chemistry On: 14-Req-220552:08 Request Urinalysis, Office (91605)Indication: Urinary frequency On: 35-Qca-798082:38 Request CBC WITH MANUAL DIFF (77345)Indication: Therapeutic drug monitoring On: :57 Request Metabolic Panel, Basic (11905)Indication: Therapeutic drug monitoring On: :57 Request Methymalonic Acid, Serum (90891)Indication: Vitamin B 12 deficiency On: 24-Zbp-173148:51 Request CALCIFIDIOL (46815) VIT D 25Indication: Vitamin D deficiency, unspecified On: 65-Izy-733825:45 Request LIPID PANEL (06944)Indication: Other and unspecified hyperlipidemia On: 20-Vvz-970029:45 Request CALCIFIDIOL (07706) VIT D 25Indication: Uncontrolled type II diabetes mellitus On: :46 Request TSH (87933)Indication: Uncontrolled type II diabetes mellitus On: :46 Request URINALYSIS, W/ MICRO (92247)Indication: Uncontrolled type II diabetes mellitus On: :46 Request MICROALBUMIN: CREATININE RATIO (20345) AND (18106)Indication: Uncontrolled type II diabetes mellitus On: :46 Request METABOLIC PANEL, COMPREHENSIVE (23443)Indication: Uncontrolled type II diabetes mellitus On: :46 Request LIPID PANEL (72979)Indication: Uncontrolled type II diabetes mellitus On: :45 Request CBC W/AUTO DIFF WBC (05437)Indication: Uncontrolled type II diabetes mellitus On: :45 Request Rapid Flu (20280 x 2)Indication: Flu-like symptoms On: 20-Arx-153135:12 Request VITAMIN B-12 (CYANOCOBALAMIN) (81246)Indication: Vitamin B 12 deficiency On: 41-Aez-406397:45 Request FECAL OCCULT- Tubes sent home (39618)Indication: Encounter for screening for malignant neoplasm of colon (Renamed from Special screening for malignant neoplasms, colon) On: 23-Fax-087620:35 Request THYROXINE FREE (14444)Indication: Tachycardia On: 2-Rai-997612:04 Request FREE TRIDOTHYRONINE (T3) (57656)Indication: Tachycardia On: 3-Biq-821052:04 Request TSH (THYROID STIMULATING HORMONE) (25031)Indication: Tachycardia On: 3-Uji-665851:04 Request serum immunofixation (21026)Indication: MGUS (monoclonal gammopathy of unknown significance) On: 41-Wbk-748574:14 Request urine immunofixation (98203)Indication: MGUS (monoclonal gammopathy of unknown significance) On: 63-Nns-846948:14 Request serum free light chains (71299)Indication: MGUS (monoclonal gammopathy of unknown significance) On: 64-Qda-344748:14 Request CBC W/AUTO DIFF WBC (43542)Indication: Diabetes mellitus type 2, controlled On: 20-Ana-086660:13 Request MICROALBUMIN: CREATININE RATIO (68712) AND (79485)Indication: Diabetes mellitus type 2, controlled On: 17-Lxu-156580:13 Request METABOLIC PANEL, COMPREHENSIVE (90843)Indication: Diabetes mellitus type 2, controlled On: 31-Pne-580863:13 Request LIPID PANEL (65890)Indication: Mixed hyperlipidemia On: 00-Qvw-709144:13 Request VITAMIN B-12 (CYANOCOBALAMIN) (98489)Indication: Other vitamin B12 deficiency anemia On: :12 Request CBC (AUTO) (56495)Indication: Other vitamin B12 deficiency anemia On: 73-Ixv-482654:12 Request Vitamin D Hydroxy ([id number])Indication: Vitamin D deficiency, unspecified On: 91-Woa-916512:12 Request LIPID PANEL (77338)Indication: Mixed hyperlipidemia On: 2-Cnh-953282:42 Request METABOLIC PANEL, COMPREHENSIVE (13378)Indication: Benign essential hypertension (Renamed from Benign essential HTN) On: 9-Ifu-713932:41 Request MICROALBUMIN: CREATININE RATIO (96893) AND (49438)Indication: Benign essential hypertension (Renamed from Benign essential HTN) On: :41 Request SPEP ([id number])Indication: Anemia, unspecified On: 87-Ycu-660199:17 Request UPEP (60327)Indication: Anemia, unspecified On: 73-Zkk-998880:17 Request CBC W/AUTO DIFF WBC ([id number])Indication: Iron (Fe) deficiency anemia On: 7-Cax-432280:38 Request TSH ([id number])Indication: Acquired hypothyroidism On: 5-Dta-331536:38 Request TSH (05690)Indication: Acquired hypothyroidism On: 85-Vxu-352037:34 Request SPEP ([id number])Indication: Iron (Fe) deficiency anemia On: 00-Txm-867458:34 Request UPEP ([id number])Indication: Iron (Fe) deficiency anemia On: 13-Wou-880021:34 Request IRON BINDING CAPACITY (TIBC) (58353)Indication: Iron (Fe) deficiency anemia On: 73-Gge-136519:34 Request FERRITIN ([id number])Indication: Iron (Fe) deficiency anemia On: 40-Ckz-466088:34 Request IRON ([id number])Indication: Iron (Fe) deficiency anemia On: 60-Rfe-939155:34 Request CBC, PLATELETS & AUT DIFF (03143)Indication: Other vitamin B12 deficiency anemia On: :34 Request VITAMIN B-12 (CYANOCOBALAMIN) (50774)Indication: Other vitamin B12 deficiency anemia On: 73-Nig-051639:33 Request Hemoglobin Glyclated (HGB A1C) (76347)Indication: Diabetes mellitus type 2, controlled On: 14-Tko-508324:33 Request CBC, PLATELETS & AUT DIFF (26061)Indication: Other vitamin B12 deficiency anemia On: :31 Request VITAMIN B-12 (CYANOCOBALAMIN) (63190)Indication: Other vitamin B12 deficiency anemia On: :30 Request METABOLIC PANEL, COMPREHENSIVE (51274)Indication: Benign essential hypertension (Renamed from Benign essential HTN) On: :30 Request LIPID PANEL (19084)Indication: Other and unspecified hyperlipidemia On: :30 Request Vitamin D Hydroxy (74815)Indication: Vitamin D deficiency, unspecified On: : Request SQAGE-WJFWLDEPVXV-HCIDB ([id number])Indication: Fatty liver On: : Request FWOWG-TQIBXTQZYPP-OVZSF ([id number])Indication: Fatty liver On: 15-Jqw-520690:24 Request LIPID PANEL (30123)Indication: Mixed hyperlipidemia On: :23 Request TSH ([id number])Indication: Acquired hypothyroidism On: 31-Twb-119924:23 Request MICROALBUMIN: CREATININE RATIO (62518) AND ([id number])Indication: Diabetes mellitus type 2, controlled On: 91-Ufn-251933:23 Request METABOLIC PANEL, COMPREHENSIVE (76585)Indication: Diabetes mellitus type 2, controlled On: 16-Vao-465623:23 Request Vitamin D Hydroxy (91426)Indication: Vitamin D deficiency, unspecified On: 51-Sdq-176195:23 Request CBC, PLATELETS & AUT DIFF ([id number])Indication: Other vitamin B12 deficiency anemia On: 37-Lst-095902:20 Request VITAMIN B-12 (CYANOCOBALAMIN) (26710)Indication: Other vitamin B12 deficiency anemia On: 12-Quy-681673:20 Request Vitamin D Hydroxy (47881)Indication: Vitamin D deficiency, unspecified On: 38-Kwk-244488:38 Request VITAMIN B-12 (CYANOCOBALAMIN) (88790)Indication: Other vitamin B12 deficiency anemia On: :38 Request CBC W/AUTO DIFF WBC ([id number])Indication: Other vitamin B12 deficiency anemia On: 59-Kgh-902596:37 Request TSH (36512)Indication: Acquired hypothyroidism On: 55-Kyi-893027:37 Request LIPID PANEL (36425)Indication: Mixed hyperlipidemia On: :37 Request AJXNM-JHUPRWUWKBI-SZYOP ([id number])Indication: Fatty liver On: :08 Request PTT (Activated Partial Thromboplastin Time) ([id number])Indication: Fatty liver On: : Request PT (Prothrobim Time) (01428)Indication: Fatty liver On: :08 Request Vitamin D Hydroxy (91644)Indication: Vitamin D deficiency, unspecified On: 16-Ctm-217729: Request VITAMIN B-12 (CYANOCOBALAMIN) (16782)Indication: Other vitamin B12 deficiency anemia On: : Request CBC W/AUTO DIFF WBC (40484)Indication: Diabetes mellitus type 2, controlled On: : Request METABOLIC PANEL, COMPREHENSIVE (84343)Indication: Diabetes mellitus type 2, controlled On: 75-Zct-343882: Request LIPID PANEL (96850)Indication: Mixed hyperlipidemia On: : Request LIPID PANEL (42561)Indication: HYPERTENSION, NOS On: 6-Vbj-625028:40 Request CBC WITH MANUAL DIFF ([id number])Indication: HYPERTENSION, NOS On: 9-Jbo-725774:40 Request METABOLIC PANEL, COMPREHENSIVE (69713)Indication: HYPERTENSION, NOS On: :40 Request FECAL OCCULT- Tubes sent home ([id number])Indication: Anemia, unspecified On: 54-Hop-225896:38 Request IRON (39287)Indication: Anemia, unspecified On: :38 Request CBC WITH MANUAL DIFF ([id number])Indication: HYPERTENSION, NOS On: 1-Grp-213250:29 Request METABOLIC PANEL, COMPREHENSIVE ([id number])Indication: Uncontrolled type II diabetes mellitus On: 6-Hyj-620863:28 Request TSH (THYROID STIMULATING HORMONE) ([id number])Indication: Acquired hypothyroidism On: 84-Sgj-356027:08 Request HgA1C , Office (86226)Indication: Diabetes mellitus type 2, controlled On: 05-Lyu-405661:55 Request VITAMIN B-12 (CYANOCOBALAMIN) (89481)Indication: Other vitamin B12 deficiency anemia On: 7-Kjp-370419:17 Request LIPID PANEL (13703)Indication: Other and unspecified hyperlipidemia On: :17 Request MICROALBUMIN: CREATININE RATIO (71969) AND (57786)Indication: Uncontrolled type II diabetes mellitus On: : Request METABOLIC PANEL, COMPREHENSIVE (05397)Indication: Uncontrolled type II diabetes mellitus On: : Request HgA1C , Office (11132)Indication: Diabetes mellitus type 2, controlled On: :25 Request LIPID PANEL (86211)Indication: Other and unspecified hyperlipidemia On: : Request METABOLIC PANEL, COMPREHENSIVE (64060)Indication: Diabetes mellitus type 2, controlled On: : Request MICROALBUMIN: CREATININE RATIO (23690) AND (18908)Indication: Diabetes mellitus type 2, controlled On: : Request VITAMIN B-12 (CYANOCOBALAMIN) (78867)Indication: Other vitamin B12 deficiency anemia On: : Request CBC, PLATELETS & AUT DIFF (42005)Indication: Other vitamin B12 deficiency anemia On: :11 Request Vitamin D Hydroxy (19739)Indication: Vitamin D deficiency, unspecified On: 32-Jki-886293:10 Request Blood Glucose , Office (91421)Indication: Diabetes mellitus type 2, controlled On: :29 Request LIPID PANEL (46409)Indication: Other and unspecified hyperlipidemia On: :26 Request Vitamin D Hydroxy (66487)Indication: Vitamin D deficiency, unspecified On: : Request VITAMIN B-12 (CYANOCOBALAMIN) (79022)Indication: Other vitamin B12 deficiency anemia On: : Request METABOLIC PANEL, COMPREHENSIVE (16187)Indication: Benign essential hypertension (Renamed from Benign essential HTN) On: : Request MICROALBUMIN: CREATININE RATIO (25729) AND ([id number])Indication: Uncontrolled type II diabetes mellitus On: : Request Sputum Culture (35263)Indication: Chronic cough On: 5-Xlb-937358:58 Request RANI CULTURE-OTHER (47160)Indication: Sore throat On: 76-Qqu-954287:06 Request Urinalysis, Office (70355)Indication: Abnormal urine On: :14 Request RANI CULTURE-OTHER (05463)Indication: Abnormal urine On: :14 Request CCP ANTIBODY (28033)Indication: History of poliomyelitis (Renamed from H/O acute poliomyelitis) On: : Request ANTI-Sm (ANTI [place] ANTIBODY) (32927) test code [id number]: History of poliomyelitis (Renamed from H/O acute poliomyelitis) On: : Request RHEUMATOID FACTOR-QUANT (05912) test code [id number]: History of poliomyelitis (Renamed from H/O acute poliomyelitis) On: : Request Vitamin D Hydroxy (69048)Indication: Vitamin D deficiency, unspecified On: 47-Zpd-660121:15 Request LIPID PANEL (37541)Indication: Other and unspecified hyperlipidemia On: :15 Request TSH (59887)Indication: Acquired hypothyroidism On: 82-Qgv-128196:15 Request METABOLIC PANEL, COMPREHENSIVE (01480)Indication: Diabetes mellitus type 2, controlled On: 25-Vrk-496542:14 Request VITAMIN B-12 (CYANOCOBALAMIN) (81217)Indication: Other vitamin B12 deficiency anemia On: 84-Yni-547163:08 Request MICROALBUMIN: CREATININE RATIO (83017) AND (34672)Indication: Uncontrolled type II diabetes mellitus On: 71-Bcm-119576:30 Request METABOLIC PANEL, COMPREHENSIVE (04257)Indication: Uncontrolled type II diabetes mellitus On: 14-Bmr-893894:30 Request TSH ([id number])Indication: Acquired hypothyroidism On: 09-Ouw-532464:30 Request Vitamin D Hydroxy (36399)Indication: Vitamin D deficiency, unspecified On: 14-Xhx-993906:30 Request LIPID PANEL (05324)Indication: Other and unspecified hyperlipidemia On: 58-Klk-603753:29 Request LIPID PANEL (11818)Indication: Other and unspecified hyperlipidemia On: 96-Wdl-834731:51 Request TSH (68936)Indication: Acquired hypothyroidism On: 17-Klr-814250:50 Request Vitamin D Hydroxy (05419)Indication: Vitamin D deficiency, unspecified On: 83-Qiw-520540:50 Request CBC WITH MANUAL DIFF (94037)Indication: Diabetes mellitus type 2, controlled On: 96-Ixg-409275:50 Request METABOLIC PANEL, COMPREHENSIVE (00941)Indication: Diabetes mellitus type 2, controlled On: 47-Vdn-070905:50 Request Vitamin D Hydroxy (48856)Indication: Vitamin D deficiency, unspecified On: :44 Request VITAMIN B-12 (CYANOCOBALAMIN) (09285)Indication: Other vitamin B12 deficiency anemia On: :44 Request CBC WITH MANUAL DIFF (50061)Indication: Anemia, unspecified On: :43 Request METABOLIC PANEL, COMPREHENSIVE (97381)Indication: Diabetes mellitus type 2, controlled On: :43 Request MICROALBUMIN: CREATININE RATIO (07446) AND (61503)Indication: Diabetes mellitus type 2, controlled On: :43 Request LIPID PANEL (24782)Indication: Other and unspecified hyperlipidemia On: :43 Request TSH (04854)Indication: Acquired hypothyroidism On: :43 Request Vitamin D Hydroxy (47197)Indication: Vitamin D deficiency, unspecified On: :03 Request LIPID PANEL (88987)Indication: Other and unspecified hyperlipidemia On: :03 Request CBC WITH MANUAL DIFF (92323)Indication: Diabetes mellitus type 2, controlled On: :02 Request METABOLIC PANEL, COMPREHENSIVE (34738)Indication: Diabetes mellitus type 2, controlled On: 8-Tpg-579165:02 Request VITAMIN B-12 (CYANOCOBALAMIN) (39506)Indication: Other vitamin B12 deficiency anemia On: 8-Jxh-944225:36 Request Comments: Lot #[id number]-left deltoidDose-1 mlgiven by: Dani Rivera LPN LIPID PANEL (73862)Indication: Other and unspecified hyperlipidemia On: :28 Request METABOLIC PANEL, COMPREHENSIVE (86183)Indication: Uncontrolled type II diabetes mellitus On: :28 Request TSH (75657)Indication: Acquired hypothyroidism On: :28 Request Vitamin D Hydroxy (22739)Indication: Vitamin D deficiency, unspecified On: :22 Request CBC WITH MANUAL DIFF ([id number])Indication: Anemia, unspecified On: :22 Request CBC WITH MANUAL DIFF (79134)Indication: Other vitamin B12 deficiency anemia On: 8-Ibs-927918:20 Request Blood Glucose , Office (09205)Indication: Uncontrolled type II diabetes mellitus On: :15 Request Comments: 149 HgA1C , Office (96042)Indication: Uncontrolled type II diabetes mellitus On: :15 Request METABOLIC PANEL, COMPREHENSIVE (61332)Indication: Other and unspecified hyperlipidemia On: :22 Request LIPID PANEL (23683)Indication: Other and unspecified hyperlipidemia On: :22 Request TSH (30760)Indication: Acquired hypothyroidism On: :22 Request HEMOGLOBIN GLYCLATED (HGB A1C) (32563)Indication: Abnormal glucose tolerance test On: 86-Mrq-440316:20 Request VITAMIN B-12 (CYANOCOBALAMIN) (47763)Indication: Other vitamin B12 deficiency anemia On: 69-Bca-169060:17 Request Vitamin D Hydroxy (85502)Indication: Vitamin D deficiency, unspecified On: :21 Request VITAMIN B-12 (CYANOCOBALAMIN) (13833)Indication: Other vitamin B12 deficiency anemia On: 6-Kwg-190072:20 Request LIPID PANEL (30895)Indication: Abnormal glucose tolerance test On: :20 Request CBC WITH MANUAL DIFF (50839)Indication: Abnormal glucose tolerance test On: 6-Dwp-839316:20 Request METABOLIC PANEL, COMPREHENSIVE (14663)Indication: Abnormal glucose tolerance test On: :20 Request METABOLIC PANEL, COMPREHENSIVE (18475)Indication: Abnormal glucose tolerance test On: :59 Request CBC WITH MANUAL DIFF (30044)Indication: Abnormal glucose tolerance test On: 3-Spg-045513:59 Request Vitamin D Hydroxy (31641)Indication: Vitamin D deficiency, unspecified On: 7-Xfh-193778:59 Request VITAMIN B-12 (CYANOCOBALAMIN) (61636)Indication: Other vitamin B12 deficiency anemia On: 2-Wkc-342737:59 Request TSH (38943)Indication: Acquired hypothyroidism On: 5-Oui-632462:58 Request LIPID PANEL (19666)Indication: Other and unspecified hyperlipidemia On: 8-Gml-089153:58 Request CCP ANTIBODY (11662)Indication: Pain in unspecified joint On: 41-Yzl-256988:22 Request VITAMIN B-12 (CYANOCOBALAMIN) (20886)Indication: Other vitamin B12 deficiency anemia On: 0-Xbf-151771:10 Request Vitamin D Hydroxy (19060)Indication: Vitamin D deficiency, unspecified On: 7-Nxm-118111:10 Request MICROALBUMIN: CREATININE RATIO (26682) AND (36181)Indication: Uncontrolled type II diabetes mellitus On: :10 Request CBC WITH MANUAL DIFF (08433)Indication: Uncontrolled type II diabetes mellitus On: 0-Hxd-556017:10 Request METABOLIC PANEL, COMPREHENSIVE (78139)Indication: Benign essential hypertension (Renamed from Benign essential HTN) On: 0-Rxo-000543:09 Request LIPID PANEL (36374)Indication: Other and unspecified hyperlipidemia On: 8-Okx-557251:09 Request TSH (64024)Indication: Acquired hypothyroidism On: 8-Hge-721434:39 Request VITAMIN B-12 (CYANOCOBALAMIN) (81013)Indication: Other vitamin B12 deficiency anemia On: 1-Szs-980456:37 Request HEPATIC FUNCTION PANEL (91512)Indication: Other and unspecified hyperlipidemia On: 6-Ztt-824433:36 Request LIPID PANEL (05289)Indication: Other and unspecified hyperlipidemia On: 3-Ynk-536001:36 Request Vitamin D Hydroxy (54615)Indication: Vitamin D deficiency, unspecified On: 9-Ezd-472432:36 Request METABOLIC PANEL, COMPREHENSIVE (55661)Indication: Benign essential hypertension (Renamed from Benign essential HTN) On: 3-Rid-596753:35 Request LIPID PANEL (56559)Indication: Other and unspecified hyperlipidemia On: 8-Tbs-080313:35 Request Vitamin D Hydroxy (90641)Indication: Vitamin D deficiency, unspecified On: 6-Tkv-405048:30 Request Vitamin D Hydroxy (48044)Indication: Vitamin D deficiency, unspecified On: 59-Hpa-384239:10 Request MICROALBUMIN: CREATININE RATIO (05221) AND (99887)Indication: Uncontrolled type II diabetes mellitus On: 65-Jfg-680890:07 Request LIPID PANEL (83662)Indication: Other and unspecified hyperlipidemia On: :07 Request TSH (61700)Indication: Acquired hypothyroidism On: :07 Request VITAMIN B-12 (CYANOCOBALAMIN) (01063)Indication: Other vitamin B12 deficiency anemia On: 72-Qtt-647255:42 Request Vitamin D Hydroxy (79836)Indication: Vitamin D deficiency, unspecified On: :50 Request IRON BINDING CAPACITY (TIBC) (52382)Indication: Iron (Fe) deficiency anemia On: :50 Request LDH (LD) (LACTATE DEHYDROGENASE) (75240)Indication: Iron (Fe) deficiency anemia On: :50 Request FERRITIN (22043)Indication: Iron (Fe) deficiency anemia On: :50 Request IRON (75080)Indication: Iron (Fe) deficiency anemia On: :50 Request CBC WITH MANUAL DIFF (33954)Indication: Iron (Fe) deficiency anemia On: :50 Request HEPATIC FUNCTION PANEL (82540)Indication: Other and unspecified hyperlipidemia On: :44 Request LIPID PANEL (41394)Indication: Other and unspecified hyperlipidemia On: :44 Request CBC WITH MANUAL DIFF (75227)Indication: Other vitamin B12 deficiency anemia On: 2-Yru-524237:54 Request MICROALBUMIN: CREATININE RATIO (47492) AND (46941)Indication: Glucose intolerance (no malabsorption) On: 0-Ekn-504159:54 Request METABOLIC PANEL, COMPREHENSIVE (16539)Indication: HYPERTENSION, NOS On: :54 Request LIPID PANEL (19072)Indication: Other and unspecified hyperlipidemia On: :53 Request VITAMIN B-12 (CYANOCOBALAMIN) (99897)Indication: Other vitamin B12 deficiency anemia On: :53 Request IRON (45113)Indication: Iron (Fe) deficiency anemia On: :53 Request Vitamin D Hydroxy (98836)Indication: Osteopenia On: 7-Wsy-816862:49 Request Methylmalonic acid, serum 54460Grnopprctv: Other vitamin B12 deficiency anemia On: :03 Request VITAMIN B-12 (CYANOCOBALAMIN) (95477)Indication: Other vitamin B12 deficiency anemia On: 12-Arc-442675:03 Request TSH (47765)Indication: Acquired hypothyroidism On: :03 Request HgA1C , Office (98469)Indication: Abnormal glucose tolerance test On: 0-Emy-419919:06 Request TSH (62286)Indication: Acquired hypothyroidism On: :35 Request LIPID PANEL (11489)Indication: Other and unspecified hyperlipidemia On: :35 Request METABOLIC PANEL, COMPREHENSIVE (42101)Indication: SOB (shortness of breath) on exertion On: :34 Request CBC WITH MANUAL DIFF (81797)Indication: SOB (shortness of breath) on exertion On: :34 Request TSH ([id number])Indication: Acquired hypothyroidism On: 0-Kuy-665653:46 Request Comments: do in 6 weeks TSH (71184)Indication: Acquired hypothyroidism On: 20-Mtu-045040:15 Request Comments: DO IN 6 WEEKS WITH MEDICATION CHANGE TSH (52689)Indication: Other malaise and fatigue On: 51-Ols-28287:49 Request Iron Binding Capacity (TIBC) (85392)Indication: Iron (Fe) deficiency anemia On: 02-Mnf-433353:43 Request Ferritin (47029)Indication: Iron (Fe) deficiency anemia On: 12-Xhe-730020:43 Request Iron (06857)Indication: Iron (Fe) deficiency anemia On: 35-Gvq-802451:43 Request HEPATIC FUNCTION PANEL (07251)Indication: Mixed hyperlipidemia On: 08-Uyp-894947:42 Request LIPID PANEL (22179)Indication: Mixed hyperlipidemia On: 67-Tvr-553217:42 Request Comments: do in 3 months HEPATIC FUNCTION PANEL (53781)Indication: Mixed hyperlipidemia On: 7-Sep-284696:11 Request LIPID PANEL (27522)Indication: Mixed hyperlipidemia On: 5-Ekf-368163:11 Request Comments: do in 3 mo TSH (87188)Indication: Acquired hypothyroidism On: Request VITAMIN B-12 (CYANOCOBALAMIN) (38208)Indication: Anemia, unspecified On: Request LDH (LD) (LACTATE DEHYDROGENASE) (56812)Indication: Anemia, unspecified On: Request RETICULOCYTE COUNT MANUL (28579)Indication: Anemia, unspecified On: Request IRON BINDING CAPACITY (TIBC) (86631)Indication: Anemia, unspecified On: Request IRON (34295)Indication: Anemia, unspecified On: Request FOLIC ACID SERUM (89594)Indication: Anemia, unspecified On: Request HAPTOGLOBIN (11593)Indication: Anemia, unspecified On: Request FERRITIN (75305)Indication: Anemia, unspecified On: Request CBC, PLATELETS & AUT DIFF (15273)Indication: Anemia, unspecified On: Request HgA1C , Office (43606)Indication: Abnormal glucose tolerance test On: : Request CBC with manual diff (07744)Indication: Anemia, unspecified On: :49 Request HgA1C , Office (92441)Indication: Abnormal glucose tolerance test On: 79-Vsw-228983:30 Request Comments: controlled URINALYSIS W/O MICRO (90072)Indication: HYPERTENSION, NOS On: :03 Request TSH (59382)Indication: Acquired hypothyroidism On: :03 Request MICROALBUMIN URINE QUANT (35638)Indication: HYPERTENSION, NOS On: 23-Hvr-467856:03 Request METABOLIC PANEL, COMPREHENSIVE (52118)Indication: HYPERTENSION, NOS On: :03 Request LIPID PANEL (84736)Indication: HYPERTENSION, NOS On: 60-Mtp-546996:03 Request CBC WITH MANUAL DIFF (96603)Indication: HYPERTENSION, NOS On: 64-Fso-579958:03 Request Planned Procedures Aerosol Treatment ([id number])By: On: 14-Apr-2018 Intent Thelma Sofia Comments: Lungs clear after albuterol aerosol treatment Ultrasound - LiverBy: Melanie DO, On: 21-Nov-2017 Intent Doris Melanie DO, Doris Melanie DO, Doris B 12 Injection, 1000 mcg ([id number])By: On: 21-Nov-2017 Intent Melanie DO, Doris Melanie DO, Comments: Vitamin b12 1000mcg injection lot:[id number]:04/2019L DELT IMpt tolerated well CARYN DUMONT Doris Melanie DO, Doris PHYSICAL THERAPY (90885)By: [place], On: 28-Oct-2017 Intent Thelma Radiology - Hip - LeftBy: [place], On: 28-Oct-2017 Intent Thelma Aerosol Treatment (68704)By: Melanie On: 07-Aug-2017 Intent DO, Doris Melanie DO, Doris Comments: more a/e less nois e Melanie DO, Doris Spirometry (53308)By: Melanie KEBEDE, On: 07-Aug-2017 Intent Doris Melanie DO, Doris Melanie Comments: really poor techniq DO, Doris Radiology - Chest- PA and LatBy: On: 07-Aug-2017 Intent Melanie DO, Doris Melanie DO, Doris Melanie DO, Doris IV Needle placement (86395)By: On: 02-Aug-2017 Intent Melanie DO, Doris Melanie DO, Doris Melanie DO, Doris INFUSION, NORMAL SALINE SOLUTION , On: 02-Aug-2017 Intent 1000 CC (Special Coverage Comments: lot:[id number]:02-26-2019rte:right anticubdose:1000ml given by:david Snow LPN Instructions Apply. See MCM: 2048) ([id number])By: Melanie DO, Doris Melanie DO, Doris Melanie DO, Doris INFUSION, NORMAL SALINE SOLUTION , On: 01-Aug-2017 Intent 1000 CC (Special Coverage Comments: lot:[id number]:02-26-2019rte:IV left anticubdose:1000ml NS given by:david Snow LPN Instructions Apply. See MCM: 2048) (J7030)By: Tobi, Marcia Aerosol Treatment (35288)By: Melanie On: 01-Aug-2017 Intent Doris KEBEDE MelanieDoris driscoll DO Comments: more a/e less junky sounding Melanie DODoris PNEUM VAC ADLT/IMUMNOSPR, SBC/INTRM On: 25-Apr-2017 Intent (29403)By: Doris Navarro DO Comments: 0.5cc given sq lt arm lot [id number] exp 09/05/18 Melaine DO, Doris Melanie DODoris INTENSIVE BEHAVIORAL THERAPY TO On: 25-Apr-2017 Intent REDUCE CARDIOVASCULAR DISEASE RISK, INDIVIDUAL, [id number], ANNUAL, 15 MINUTES (G0446)By: Doris Navarro DO Melanie DO, Doris Melanie DODoris [facility] BEHAVIORAL COUNSELING On: 25-Apr-2017 Intent FOR OBESITY, 15 MINUTES (G0447)By: Doris Navarro DO Melanie DO, Doris Melanie DO, Doris B 12 Injection, 1000 mcg (J3420)By: On: 25-Apr-2017 Intent Melanie DO, Doris Melanie DO, Comments: 1 ml given lt arm lot [id number] exp 03/15 Doris Jay DO ELECTROCARDIOGRAM, COMPLETE (ECG) On: 25-Apr-2017 Intent (30191)By: Doris Navarro DO Comments: nsr no acute chg Melanie DO, Doris Melanie DO, Doris B 12 Injection, 1000 mcg (J3420)By: On: 14-Mar-2017 Intent Melanie DO, Doris Melanie DO, Comments: lot [id number] 09/16left [id number] mcgas, [employer] LIFT NAILER Doris Melanie DO, Doris B 12 Injection, 1000 mcg ([id number])By: On: 31-Dec-2016 Intent Melanie DO Doris Melanie DO, Comments: [id number], [employer] LIFT NAILER Doris Melanie DO, Doris B 12 Injection, 1000 mcg ([id number])By: On: 20-Sep-2016 Intent Melanie DO, Doris Melanie DO, Comments: lot:[id number]: 4/18Dose: 1,000 mcgSite: R dltdLocation; IMby:, [employer]ILER Doris Melanie DO, Doris Solu- Medrol Injection, 125mg On: 20-Aug-2016 Intent (J2930)By: MelanieJd driscoll DOeen Comments: lot: [id number]: 01/14site/route: LGM/IMamt:2mLVIS signed when applicableChelsea, MENTAL HEALTH PROGRAM MANAGER Melanie DO, Doris Melanie DO, Doris Aerosol Treatment ([id number])By: Melanie On: 20-Aug-2016 Intent DO, Doris Melanie DO, Doris Comments: albulterol 0.83%relistedned nad more a/e less noise Melanie DO, Doris B 12 Injection, 1000 mcg ([id number])By: On: 20-Aug-2016 Intent Melanie DO, Doris Melanie DO, Comments: lot: [id number]: ite/route: L del/IMamt: 1mLVIS signed when applicableChelsea, MENTAL HEALTH PROGRAM MANAGER Doris Melanie DO, Doris Spirometry (81354)By: Melanie DO, On: 16-Aug-2016 Intent Doris Melanie DO, Doris Melanie Comments: ok stable - DO, Doris Aerosol Treatment (27929)By: Melanie On: 16-Aug-2016 Intent DO, Doris Melanie DO, Doris Comments: albulterol 0.83%more a.e stil some niose in RUL -- junky and easy to cough Melanie DO, Doris Solu- Medrol Injection, 125mg On: 16-Aug-2016 Intent (J2930)By: MelanieJd driscoll DOeen Comments: lot [id number] mgright gm, IMas TOP LIFT NAILER Melanie DO, Doris Melanie DO, Doris B 12 Injection, 1000 mcg (J3420)By: On: 20-Jul-2016 Intent Melanie DO, Doris Melanie DO, Comments: B12lot:[id number]:ite:rt deltroute:IMdose:1mlD.HAY Valentin Doris Melanie DO, Doris Solu- Medrol Injection, 125mg On: 20-Jul-2016 Intent (J2930)By: Doris Navarro DO Comments: lot: [id number]: 01/14site/route: RGM/IMamt: 2mLVIS signed when applicableChelsea, MENTAL HEALTH PROGRAM MANAGER Melanie DO, Doris Melanie DO, Doris Aerosol Treatment ([id number])By: Melanie On: 20-Jul-2016 Intent DO, Doris Melanie DO, Doris Comments: less wheeze good a/e- less irritability with breathing Doris Navarro DO Radiology - Chest- PA and LatBy: On: 20-Jul-2016 Intent Melanie DO, Doris Melanie DO, Doris Melanie DO, Doris Spirometry (32203)By: Melanie KEBEDE, On: 20-Jul-2016 Intent Doris Melanie DO, Doris Melanie Comments: mild restriction =- poor curve and technique DO, Doris ELECTROCARDIOGRAM, COMPLETE (ECG) On: 20-Jul-2016 Intent ([id number])By: Doris Navarro DO Comments: sinus braden no acute chg Melanie DO, Doris Melanie DO, Doris B 12 Injection, 1000 mcg (J3420)By: On: 29-May-2016 Intent Melanie DO, Doris Melanie DO, Comments: Lot:[id number]:11/13Dose:1mlRoute:IMSite:r armGiven By:SAADIA signed Doris Melanie DO, Doris Flu Vaccine (Quadrivalent) [id number]: On: 29-May-2016 Intent Melanie DO, Doris Melanie DO, Comments: Lot:[id number]:01/25/17Dose:0.5mLRoute:IMSite:L DltdGiven By:SAADIA signed Doris Melanie DO, Doris B 12 Injection, 1000 mcg (J3420)By: On: 21-May-2016 Intent Melanie DO, Doris Melanie DO, Doris Melanie DO, Doris B 12 Injection, 1000 mcg (J3420)By: On: 18-May-2016 Intent Melanie DO, Doris Melanie DO, Comments: B12lot:[id number]:ite:rt deltroute:IMdose:1mlD.HAY Vaelntin Doris Melanie DO, Doris B 12 Injection, 1000 mcg (J3420)By: On: 11-May-2016 Intent Melanie DO, Doris Melanie DO, Comments: lot [id number] [facility] dltdas, TOP LIFT NAILER Doris Melanie DO, Doris B 12 Injection, [...] ite/route: R del/IMamt: 1mLVIS signed when applicableChelsea, MENTAL HEALTH PROGRAM MANAGER Odris Melanie DO, Doris B 12 Injection, 1000 mcg (J3420)By: On: 13-Apr-2016 Intent Mckinley Valentin Comments: B12lot:[id number]:ite:lt deltroute:IMdose:1mlD.HAY Valentin INTENSIVE BEHAVIORAL THERAPY TO On: 09-Apr-2016 Intent REDUCE CARDIOVASCULAR DISEASE RISK, INDIVIDUAL, IQYB-AI-NJMG, ANNUAL, 15 MINUTES (G0446)By: Melanie DO, Doris Melanie DO, Doris Melanie DO, Doris LLIJ-VT-SIZI BEHAVIORAL COUNSELING On: 09-Apr-2016 Intent FOR OBESITY, 15 MINUTES (G0447)By: Melanie DO, Doris Melanie DO, Doris Melanie DO, Doris MAMMOGRAM, SCREENING, BOTH BREAST On: 09-Apr-2016 Intent ([id number])By: Melanie DO, Doris Melanie DO, Doris Melanie DO, Doris DEXA SCAN AXIAL SKELETON ([id number])By: On: 09-Apr-2016 Intent Melanie DO, Doris Melanie [...] Comments: Lot:[id number]:04/14Dose:1mlRoute:IMSite:l armGiven By:SAADIA signed Aerosol Treatment (02290)By: Fast On: 03-Aug-2015 Intent DO, Maggie A B 12 Injection, 1000 mcg (J3420)By: On: 17-May-2015 Intent Fast DO Maggie A Comments: Lot:[id number]:11/12Dose:1mlRoute:IMSite:l armGiven By:SAADIA signed Flu Vaccine (Quadrivalent) [id number]: On: 17-May-2015 Intent Fast DO Maggie A Comments: lot [id number]: 01/26/2016site/route L sol, IMamt 0.5mlVIS and ABN signed when applicableChelsea, CMAFM4 ADMINISTRATION OF INFLUENZA VIRUS On: 17-May-2015 Intent VACCINE (G0008)By: Maggie Tracey DO A B 12 Injection, 1000 mcg (J3420)By: On: 15-Feb-2015 Intent Kanika Georges Comments: Lot:[id number]:11.16Route:IMSite:R deltoidDose: 1 mLgiven by: Kanika Georges CMA DANIEL (Ankle Brachial Index) On: 08-Feb-2015 Intent ([id number])By: Maggie Tracey DO Radiology - Lumbar SpineBy: Alexy KEBEDE, On: 08-Feb-2015 Intent Maggie Armstrong Ultrasound - ThyroidBy: Alexy KEBEDE, On: 09-Nov-2014 Intent Maggie A B 12 Injection, 1000 mcg (J3420)By: On: 09-Nov-2014 Intent Camelia Tracey DOa A Comments: lot [id number] mcgleft dltdIMas, TOP LIFT NAILER Radiology - Chest- PA and LatBy: On: 13-Sep-2014 Intent Alexy KEBEDE Maggie A Comments: call stat Pulse Oximetry ([id number])By: Alexy KEBEDE, On: 13-Sep-2014 Intent Maggie A Comments: 97% Inhaler Demonstration ([id number])By: On: 07-Sep-2014 Intent Kimberley Loyd CNP Radiology - Chest- PA and LatBy: On: 14-Jul-2014 Intent Alexy KEBEDE Maggie A Comments: call rsults Spirometry ([id number])By: Alexy KEBEDE, On: 14-Jul-2014 Intent Maggie A Comments: good effort and curve mild rest /obst Prevnar 13 ([id number])By: Alexy KEBEDE, On: 30-Jun-2014 Intent Maggie A Comments: lot [id number] 09/2015location L armroute imgiven by - msmithVIS and/or ABN signed MAMMOGRAM, SCREENING, BOTH BREAST On: 14-Apr-2014 Intent ([id number])By: Maggie Tracey DO A B 12 Injection, 1000 mcg (J3420)By: On: 14-Apr-2014 Intent Camelia Tracey DOa A Comments: Lot #:[id number] date:mount given:1mlRoute: IMSite given: left deltoidGiven by: HAY Zavala Cartoid DopplerBy: Alexy DO Maggie A On: 14-Apr-2014 Intent Eprescribed prescriptions (G8553)By: On: 07-Oct-2013 Intent Fast DO, Maggie A DXA, BONE DENSITY, AXIAL SKELETON On: 20-Jul-2013 Intent ([id number])By: Alexy KEBEDE Maggie A Comments: aug Pelvic and Breast, Medicare On: 20-Jul-2013 Intent (G0101)By: Alexy DOCameliaa A Cartoid DopplerBy: Fast DO, Maggie A On: 07-Jul-2013 Intent Eprescribed prescriptions (G8553)By: On: 07-Jul-2013 Intent Raiza Ortiz FLU VAC, SPLIT, >3 YEARS, INTRAMUSC On: 04-May-2013 Intent ([id number])By: Maritza Cantor Comments: lot [id number] 2014site/route L sol, IMamt 0.5mlVIS and ABN signed when applicableChelsea, [facility] ADMINISTRATION OF INFLUENZA VIRUS On: 04-May-2013 Intent VACCINE (G0008)By: Maritza Cantor Radiology - Hip - LeftBy: Alexy KEBEDE, On: 07-Apr-2013 Intent Maggie Armstrong Eprescribed prescriptions (G8553)By: On: 07-Apr-2013 Intent Raiza Ortiz Eprescribed prescriptions (G8553)By: On: 05-Jan-2013 Intent Raiza Ortiz Spirometry (58571)By: Alexy KEBEDE, On: 01-Dec-2012 Intent Maggie A Comments: good effort and curve normal Radiology - Chest- PA and LatBy: On: 01-Dec-2012 Intent Alexy KEBEDE Maggie A Comments: stat call wet read Eprescribed prescriptions (G8553)By: On: 01-Dec-2012 Intent Raiza Ortiz Pulse Oximetry ([id number])By: Angel, On: 01-Dec-2012 Intent Raiza Comments: 98% Eprescribed prescriptions (G8553)By: On: 27-Nov-2012 Intent Melanie DO, Doris Melanie DO, Doris Melanie DO, Doris MAMMOGRAM, SCREENING, BOTH BREASTS On: 29-Sep-2012 Intent (10082)By: Camelia Tracey DOa A EKG (61085)By: Raiza Ortiz On: 29-Sep-2012 Intent Comments: ekg- 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 axis and no acute st t wave changes Eprescribed prescriptions (G8553)By: On: 29-Sep-2012 Intent Raiza Ortiz Eprescribed prescriptions (G8553)By: On: 03-Sep-2012 Intent Raiza Ortiz Eprescribed prescriptions (G8553)By: On: 30-Jul-2012 Intent Raiza Ortiz B 12 Injection, 1000 mcg (J3420)By: On: 23-Jun-2012 Intent Maggie Tracey DO A Comments: Lot:[id number]:Dose:1mlRoute:IMSite:L armGiven By:SAADIA signed Eprescribed prescriptions (G8553)By: On: 23-Jun-2012 Intent Raiza Ortiz B 12 Injection, 1000 mcg (J3420)By: On: 25-Mar-2012 Intent Maricruz Rivera LPN Comments: Lot #[id number]-06/10Site-right deltoidDose-1 mlgiven by: Dani Rivera LPN Eprescribed prescriptions (G8553)By: On: 25-Mar-2012 Intent Maggie Tracey DO FLU VAC, SPLIT, >3 YEARS, INTRAMUSC On: 25-Mar-2012 Intent (83244)By: Patsy Leslie LPN Comments: Lot/Exp: [id number], 12/2011Given in L Dltd, IMPrefilled SyringeBy CARYN Garner ADMINISTRATION OF INFLUENZA VIRUS On: 25-Mar-2012 Intent VACCINE (G0008)By: Patsy Lesile LPN Echo CompleteBy: Alexy KEBEDE Maggie A On: 07-Dec-2011 Intent B 12 Injection, 1000 mcg (J3420)By: On: 07-Dec-2011 [address] - OtherBy: Alexy DO Maggie A On: 03-Oct-2011 Intent Comments: get cta of carotid arteries TDAP VACCINE >7 IM ([id number])By: On: 03-Oct-2011 Intent Raiza Ortiz B 12 Injection, 1000 mcg (J3420)By: On: 07-Sep-2011 Intent Raiza Ortiz Comments: Lot #[id number]-/Site-left deltoidDose-1 mlgiven by: Dani Rivera LPN Cartoid DopplerBy: Maggie Tracey DO On: 07-Sep-2011 Intent Comments: in september DXA, BONE DENSITY, AXIAL SKELETON On: 07-Sep-2011 Intent ([id number])By: Maggie Tracey DO MAMMOGRAM, SCREENING, BOTH BREASTS On: 07-Sep-2011 Intent ([id number])By: Maggie Tracey DO Aerosol Treatment (28665)By: Ciesa On: 08-Aug-2011 Intent STAINED GLASS PAINTER, Kimberley Poe EKG (70267)By: Raiza Ortiz On: 06-Jun-2011 Intent Comments: ekg showed normal sinus rhythym, left axis, no acute st/t wave changes DXA, BONE DENSITY, AXIAL SKELETON On: 06-Jun-2011 Intent ([id number])By: Maggie Tracey DO FLU VAC, SPLIT, >3 YEARS, INTRAMUSC On: 11-May-2011 Intent (95155)By: Maricruz Rivera LPN Comments: Lot #[id number]-85/20/Site-left deltoidgiven by: Dani Rivera LPN B 12 [...] Ultrasound OtherBy: Alexy KEBEDE, On: 24-Jan-2011 Intent Maggei Armstrong Comments: stat right leg- call wet [...] PNEUM VAC ADLT/IMUMNOSPR, SBC/INTRM On: 03-Jul-2010 Intent ([id number])By: Maggie Tracey DO Comments: Lot #[id number]-/10/07Site-left deltoidDose- 0.5mlgiven by:[facility] ADMINISTRATION OF PNEUMOCOCCAL On: 03-Jul-2010 Intent VACCINE (G0009)By: Maggie Tracey DO MAMMOGRAM, SCREENING, BOTH BREASTS On: 03-Jul-2010 Intent ([id number])By: Maggie Tracey DO B 12 Injection, 1000 mcg (J3420)By: On: 20-Jun-2010 Intent Maggie Tracey DO Comments: Lot #[id number]-12/07Site-left deltoidDose-1 mlgiven by:[facility] B 12 Injection, 1000 mcg (J3420)By: On: 10-May-2010 Intent Apoorva Calle Comments: Lot:[id number]:12/07Dose:1000mcg/1mlRoute:IMSite:right deltoid Given by: HAY Birch FLU VAC, SPLIT, >3 YEARS, INTRAMUSC On: 10-May-2010 Intent (10698)By: Apoorva Calle Comments: Lot:[id number] 4PExp:4/2011Dose:0.5mlRoute:IMSite:Left Deltoid Given by: HAY Birch ADMINISTRATION OF INFLUENZA VIRUS On: 10-May-2010 Intent VACCINE (G0008)By: Apoorva Calle Doppler Ultrasound OtherBy: Alexy KEBEDE, On: 12-Apr-2010 Intent Maggie Armstrong Comments: both legs stat- left leg swelling- call wet read Spirometry (00498)By: Alexy KEBEDE, On: 12-Apr-2010 Intent Maggie A Comments: good effort and curve normal B 12 Injection, 1000 mcg (J3420)By: On: 05-Apr-2010 Intent Maggie Tracey DO Ultrasound - GallbladderBy: Alexy KEBEDE, On: 01-Feb-2010 Intent Maggie A IV Needle placement (87614)By: On: 10-Jan-2010 Intent Ana Guzman Comments: IV 22 gauge inserted in right antecubital on first attempt and 0.9 NSS running without difficulty-AW INFUSION, NORMAL SALINE SOLUTION , On: 10-Jan-2010 Intent 1000 CC (Special Coverage Instructions Apply. See MCM: 2049) (J7030)By: Kimberley Loyd CNP THER/PROPH/DIAG INJ, SC/IM On: 10-Jan-2010 Intent ([id number])By: Kimberley Loyd CNP Radiology - Knee - Right - Weight On: 03-Jan-2010 Intent BearingBy: Maggie Tracey DO EKG (87651)By: Raiza Ortiz On: 03-Jan-2010 Intent Comments: ekg showed normal sinus rhythym, left axis, no acute st/t wave changes Aerosol Treatment (10534)By: Evert On: 19-Oct-2009 Intent Kimberley LOVE Cartoid DopplerBy: Maggie Tracey DO On: 14-Jun-[address] - Brain/HeadBy: Maggie Tracey DO On: 06-Jun-2009 Intent MAMMOGRAM, SCREENING, BOTH BREASTS On: 06-Jun-2009 Intent (09075)By: Maggie Tracey DO DXA, BONE DENSITY, AXIAL SKELETON On: 06-Jun-2009 Intent (65830)By: Maggie Tracey DO FLU VAC, SPLIT, >3 YEARS, INTRAMUSC On: 12-May-2009 Intent (64050)By: Maricruz Rivera LPN Comments: Lot #[id number]-left deltoidgiven by:[facility] ADMINISTRATION OF INFLUENZA VIRUS On: 12-May-2009 Intent VACCINE (G0008)By: Maricruz Rivera LPN Radiology - Hand - RightBy: Alexy KEBEDE, On: 26-Jan-2009 Intent Maggie Armstrong Radiology - Wrist - RightBy: Fast On: 26-Jan-2009 Intent DO Maggie A Comments: call wet read Pulse Oximetry (95605)By: Alexy KEBEDE, On: 27-Dec-2008 Intent Maggie A Comments: 98 Inhaler Demo (40675)By: Alexy KEBEDE, On: 27-Dec-2008 Intent Maggie A Spirometry (62614)By: Alexy KEBEDE, On: 27-Dec-2008 Intent Maggie A Comments: good effort and curve has small airways diminished Radiology - Chest- PA and LatBy: On: 27-Dec-2008 Intent Alexy KEBEDE Maggie A Echo CompleteBy: Alexy KEBEDE Maggie A On: 08-Nov-2008 Intent Comments: elevated bp - increase patricia EKG (21743)By: Camelia Tracey DOa A On: 08-Nov-2008 Intent Comments: ekg showed normal sinus rhythym, leftl axis, no acute st/t wave changes rsr unchanged Bio Z ([id number])By: Maggie Tracey DO A On: 08-Nov-2008 Intent Inhaler Demo (84166)By: Melanie KEBEDE, On: 02-Sep-2008 Intent Doris Jay DO, DO, Kathleen Aerosol Treatment (72795)By: Melanie On: 02-Sep-2008 Intent Doris KEBEDE DO, Kathleen Comments: less echoey -- better less cough Doris Navarro DO EKG (25534)By: Doris Navarro DO On: 16-Dec-2007 Intent Doris [...] LSN TRNK/ARM/LEG On: 09-Jul-2007 Intent 0.6-1.0 CM (54120)By: Kimberley Loyd CNP BIOPSY OF SKIN LESION, SINGLE On: 09-Jul-2007 Intent (13219)By: Kimberley Loyd CNP SHAVE SKIN LESION, TRUNK/ARM/LEG On: 02-Jul-2007 Intent (20200)By: Kimberley Loyd CNP BIOPSY OF SKIN LESION, SINGLE On: 02-Jul-2007 Intent ([id number])By: Kimberley Loyd CNP B 12 Injection, 1000 mcg (J3420)By: On: 02-Jul-2007 Intent Jesus RUBIN, Lashonda FLU VAC, SPLIT, >3 YEARS, INTRAMUSC On: 04-Jun-2007 Intent (06703)By: Jing Cabello RN Comments: Lot #: [id number] date: 01/03Amount given: 0.5 MLRoute: IMSite given: Left deltoidGiven by: Nathaniel Beal LPN IMMUNIZ ADMNIN, 1 VAC, SNGL/COMBO On: 04-Jun-2007 Intent (11003)By: Jing Cabello RN B 12 Injection, 1000 [...] DO, Doris Melanie DO, Doris IV Infusion (32143)By: Melanie KEBEDE, On: 18-Oct-2006 Intent Doris Melanie DO, Doris Melanie DO, Doris EKG ([id number])By: Doris Navarro DO On: 10-Oct-2006 Intent Melanie [...] Injection Solution Ordered: 06-Apr-2016 Pending Melanie DO, Doirs Melanie DO, Doris Melanie DO, Doris Vitamin [...] MCG/ML Injection Solution Ordered: 25-Mar-2012 Pending [place] TOP LIFT NAILERMaricruz Armijo Vitamin B-12 1000 MCG/ML Injection Solution [...] 13 steps at home. I was at [place] for 3 days in ICU I broke [...] and she off pravastatin and went to [place] and now on 5 mg of crestor- and tolerated she got leg pain and weakness on pravachol- - she got good [facility] on stroke and vascular in [place]- --bp is good and cough gone and [...] since going [facility]- on atb yet but will finish [...] feels good- bp is great- went to [facility] for vascular check and said [...] stroke sx mood controlled has followup in [facility] for vascular issues soon- no chest [...] not home- no gerd - went to [place] for artery checks and doing ok there- [...] care visit: [facility] .-she [...] laboratory test results: she went back to [facility] Saw Dr Shruthi Quinones- ??head [...] note: (stroke she was at [facility] x 5days released on saturday05/22/12 to 05/27/12). The patient feels well with minor complaints, has decreased energy End: 29-May-2012 14:12 level and is sleeping well. Patient has been compliant with instructions. Current medication use: compliant with dosing regimen. Patient sleeps 7 hours per night. Nutrition: balanced diet and supplement al vitamins. Note for Follow up hospital: [facility] Diagnosis: CVA (434.91), Benign essential hypertension (401.1), Diabetes type II,controlled no comp (250.00), Hypothyroidism (244.9), Carotid stenosis (433.10) Comprehensive Internal Medicine Office Visit On: 22-May-2012 10:33 Encounter Reason: Follow up hospital - Reason for ER visit: note: (TIA. ??Patient was seen by [facility] ER x 3 times last week and then sent to [facility] for psych eval.). 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
--- OUTSIDE RECORDS SUMMARY | 2018-08-20 04:54 | XMS RPT_ITS | Continuity of Care Document ---
:1940 Author Organization [facility] Address [address] [facility] [address] [place] [address] Phone Care Team Providers Name Role Phone Doris Navarro DO Unavailable Camacho Serrano Unavailable Flakito Morales Unavailable [facility], [facility] Unavailable Marcello Stein Unavailable Sal [...] artery stenosis (I65.23, 433.10) Comments: goes to [facility] yearly to follow Status: Active [...] related to fatty liver -- did nutrition spiritual counselor and wt loss / metformin and [...] Start : 26-Sep-2016 End : 12-Dec-2017 Inactive Muscotah 5-325 MG Oral Tablet 1 q 4hrs prn (5-325 MG) Inactive OMNARIS, 50MCG/ACT (Nasal Suspension) 1-2 Suspension Daily for 0 days Quantity: 1 {Suspension} Refills: 0 Ordered:20-Oct-2008 Raiza rOtiz Start : 20-Oct-2008 End : 08-Nov-2008 Inactive [...] : 07-Sep-2014 End : 13-Sep-2014 Discontinued ERGOCALCIFEROL, 86167CEMX (Oral Capsule) 1 (one) Capsule q week [...] End : 23-Jun-2012 Discontinued VITAMIN D (ERGOCALCIFEROL), 20996QEPU (Oral Capsule) 1 Capsule q week for 0 days Quantity: 12 {Capsule} Refills: 2 Ordered:19-Aug-2015 Raiza Ortiz Start : 07-Apr-2013 End : 19-Aug-2015 Discontinued VITAMIN D, 92340FQRS (Oral Capsule) 1 (one) Capsule q week [...] Department Summary Result: Comments: See Note; NOTES: [facility] Medical Records Department [address] [place] [address] Emergency Department Summary 05/14/18 0908 MR#: [id number] Acct: [id number] Name: MARICRUZ GRIGSBY Rep #: [id number] : 1940 78 From: Zee Denise MD PCP: Doris Nvaarro DO Status: DEP ER - ER Visit [...] family doctors she is re ferred to [facility] for the shoulder injury and she will return for change in symptoms and she is comfortable with this plan Treatment Plan: [] Disposition: [] Stable home Impression: [] Fall left rib fracture, left shoulder injury This note was generated with Reduxioation software. It may contain incorrect words, spelling, [...] your Primary Care Provider. Call [facility] ([phone]) or report to the closest Emergency Room. Call 911 if necessary. 05/14/18 1530 <Electronically signed by Zee Denise MD> Date Zee Denise MD Cosigner Signatur e (If Indicated): Date CC: Doris Navarro DO 14-May-2018 Discharge Instruction Result: Comments: See Note; NOTES: [facility] Medical Records Department [address] [place] [address] Discharge Instruction 05/14/18 1133 MR#: [id number] Acct: [id number] Name: CLIFFORD HOBBSMARICRUZ THORNE Rep #: [id number] : 1940 78 From: Zee Denise MD PCP: Doris Navarro DO Status: REG ER ED Disposition - Plan for ED Patient: Chief Complaint: Fall Instructions: ED M echanical Fall, ED Fx Rib, ED Sprain Shoulder, ED Sling Prescriptions: Hydrocodone Bitart/Apap 5-325 [[place]cot[place] 5MG-325MG] 1 tab PO Q6H PRN PRN 3 Days #10 tab PRN Reason: Pain Referrals: Doris Navarro DO [Primary Care Provider] - What to do if you have Problems For any increased pain, shortness of breath, bleeding, nausea or vomiting, chest pain, or any unexpected problems, contact your Primary Car e Provider. Call [facility] ([phone]) or report to the closest Emergency Room. Call 911 if necessary. 05/14/18 1134 <Electronically signed by Zee Denise MD> Date ___ Zee Denise MD Cosigner Signature (If Indicated): Date CC: Doris Navarro DO 14-May-2018 Chest PA and Lateral Result: Comments: See Note; NOTES: [facility] Imaging Services [address] [place] [address] Chest PA and Lateral MR#: [id number] Acct: [id number] Name: MARICRUZ GRIGSBY Rep #: [id number] : 1940 F 78 From: Teo Wayne MD PCP: Doris Navarro DO Status: REG ER Study: Chest PA and Lateral Date of Exam: 05/14/18 Exam# [id number] Ordering Dr: Zee Denise MD STUDY: X-RAY [...] acute abnormality is seen. Electronically Signed: Teo Wyane MD at 10:11 EDT Tel [phone], Luxera support , CC: MD Sonam Denise; Doris Navarro DO Dairy Lab Technician: Signed 14-May-2018 Elbow min 3 Views Result: Comments: See Note; NOTES: [facility] Imaging Services [address] [place] [address] Elbow min 3 Views MR#: [id number] Acct: [id number] Name: MARICRUZ GRIGSBY Rep #: [id number] : 1940 F 78 From: Teo Wayne MD PCP: Doris Navarro DO Status: [facility] Study: Elbow min 3 Views Date of Exam: 05/14/18 Exam# [id number] Ordering Dr: Zee Denise MD STUD Y: [...] Teo Wayne MD at 10:12 EDT Tel [phone], Service support , CC: MD Sonam Denise; Doris Navarro DO Dairy Lab Technician: Signed 14-May-2018 Shoulder min 2 Views Result: Comments: See Note; NOTES: [facility] Imaging Services [address] [place] [address] Shoulder min 2 Views MR#: [id number] Acct: [id number] Name: MARICRUZ GRIGSBY Rep #: [id number] : 1940 F 78 From: Teo Wayne MD PCP: Doris Navarro DO Status: REG ER Study: Shoulder min 2 Views Date of Exam: 05/14/18 Exam# [id number] Ordering Dr: Zee Denise MD STUDY: X-RAY [...] Wayne MD at 11:02 EDT Tel [phone], Service support , CC: MD Sonam Denise; Doris Navarro DO Dairy Lab Technician: Signed 06-Feb-2018 History and Physical Exam Result: Comments: See Note; NOTES: [facility] Medical Records Department [address] [place] [address] History and Physical 02/06/182050 MR#: [id number] Acct: [id number] Name: MARICRUZ GRIGSBY Rep #: [id number] : 1940 77 From: María Barnes MD [...] cholecystectomy Psychiatric History: No pertinent psych hx RIDE ATTENDANT History: No pertinent RIDE ATTENDANT history Lives: Spouse/ Significant Other Smoking Status: [...] Subcu heparin. This note was generated with Zmanda software. It may contain incorrect words, spelling, and punctuation that were not noted in checking the note before signing. Code Visit OBSV E AND M: 65430 Initial observation care L3 07/12/08 05 2108 <Electronically signed by María Barnes MD> Date María Barnes MD Cosigner Signature: Date (if applicable) CC: María Barnes; Doris Navarro DO Signed 06-Feb-2018 Brain/Head without Contrast Result: Comments: See Note; NOTES: [facility] Imaging Services [address] [facility] [place] [address] Brain/Head without Contrast MR#: [id number] Acct: [id number] Name: MARICRUZ GRIGSBY Rep #: [id number] : 1940 F 77 From: Renata Lee MD PCP: Doris Navarro DO Status: REG Study: Brain/Head without Contrast Date of Exam: 02/06/18 Exam# [id number] Ordering Dr: Cameron Marte MD STUDY: CT [...] , CC: Doris Navarro DO; Jered Marte Dairy Lab Technician: Signed 06-Feb-2018 Chest 1 View Result: Comments: See Note; NOTES: [facility] Imaging Services [address] [place] [address] Chest 1 View MR#: [id number] Acct: [id number] Name: MARICRUZ GRIGSBY Rep #: [id number] : 1940 F 77 From: Renata Lee MD PCP: Doris Navarro DO Status: [facility] ER Study: Chest 1 View Date of Exam: 02/06/18 Exam# [id number] Ordering Dr: Jered Marte MD STUDY: X-RAY [...] , CC: Doris Navarro DO; Jered Marte Dairy Lab Technician: Signed 25-Nov-2017 Liver Result: Comments: See Note; NOTES: [facility] Imaging Services [address] [place] [address] Liver MR#: [id number] Acct: [id number] Name: MARICRUZ GRIGSBY [place] Rep #: [id number] : 1940 F 77 From: Mack Hand MD PCP: Doris Navarro DO Status: REG CLI Study: Liver Date of Exam: 11/25/17 Exam# [id number] Ordering Dr: Doris Navarro DO STUDY: ABDOMINAL [...] MD at 12:34 EDT , Service support [phone], CC: Doris Navarro DO Dairy Lab Technician: Signed 29-Oct-2017 Hip 2-3 Views with Pelvis Result: Comments: See Note; NOTES: [facility] Imaging Services [address] [place] [address] Hip 2-3 Views with Pelvis MR#: [id number] Acct: [id number] Name: MARICRUZ GRIGSBY #: [id number] : 1940 F 77 From: Benji Finch PCP: Doris Navarro DO Status: REG CLI Study: Hip 2-3 Views with Pelvis Date of Exam: 10/29/17 Exam# [id number] Ordering Dr: Thelma Sofia LIGHTING DESIGNER- C STUDY: X-RAY - PELVIS AND LEFT [...] , CC: QUINN Sofia; Doris Navarro DO Dairy Lab Technician: Signed 27-Aug-2017 12 Lead Electrocardiogram Result: Comments: See Note; NOTES: [facility] Cardiovascular Services [address] [place] [address] 12 Lead EKG 08/24/17 1719 MR#: [id number] Acct: [id number] Name: PORTIA GRIGSBY Rep #: [id number] : 1940 77 From: Maurilio Meraz MD [...] C onfirmed by SOLEDAD STREETER, MAURILIO ([id number]), department editor STACY CARTER ([id number]) on 08/27/2017 10:37:34 AM Referred By: EITAN Confirmed By:MAURILIO MERAZ MD 08/27/17 1037 Date Maurilio Meraz MD CC: Doris Melanie KEBEDE Signed 25-Aug-2017 Emergency Department Summary Result: Comments: See Note; NOTES: [facility] Medical Records Department [address] [place] [address] Emergency Department Summary 08/24/17 1709 MR#: [id number] Acct: [id number] Name: MARICRUZ GRIGSBY Rep #: [id number] : 1940 77 From: Zee Denise MD [...] at home. She has no history of FL PE or DVT she does have history [...] be altered This note was generated with Pipefish dictation software. It may contain incorrect words, [...] your Primary Care Provider. Call [facility] ([phone]) or report to the closest Emergency Room. Call 911 if necessary. 08/25/17 0001 <Electronically sig radha by Zee Denise MD> Date Zee Denise MD Cosigner Signature (If Indicated): Date CC: Doris Navarro DO 24-Aug-2017 Discharge Instruction Result: Comments: See Note; NOTES: [facility] Medical Records Department [address] [place] [address] Discharge Instruction 08/24/17 1820 MR#: [id number] Acct: [id number] Name: MARICRUZ GRIGSBY Rep #: [id number] : 1940 77 From: Zee Denise MD [...] problems, contact your Primary Care Provider. Call [facility] ([phone]) or report to the closest [facility] Room. Call 911 if necessary. 08/24/17 1821 <Electronically signed by Zee Denise MD> Date Zee Denise MD Cosign er Signature (If Indicated): Date CC: Doris Navarro DO 24-Aug-2017 Chest PA and Lateral Result: Comments: See Note; NOTES: [facility] Imaging Services [address] [place] [address] Chest PA and Lateral MR#: [id number] Acct: [id number] Name: MARICRUZ GRIGSBY [place] Rep #: [id number] : 1940 F 77 From: Stacy Tapia MD PCP: Doris Navarro DO Status: REG ER Study: Chest PA and Lateral Date of Exam: 08/24/17 Exam# [id number] Ordering Dr: Zee Denise MD XR Chest [...] CC: MD Sonam Denise; Doris Navarro DO Dairy Lab Technician: Signed 07-Aug-2017 Chest PA and Lateral Result: Comments: See Note; NOTES: [facility] Imaging Services [address] [place] [address] Chest PA and Lateral MR#: [id number] Acct: [id number] Name: CLIFFORD MARICRUZ CRUZ Rep #: [id number] : 1940 F 77 From: Teo Wayne MD PCP: Doris Navarro DO Status: REG CLI Study: Chest PA and Lateral Date of Exam: 08/07/17 Exam# [id number] Ordering Dr: Doris Navarro DO STUDY: X-RAY [...] Logan i, MD at 13:49 EST Tel [phone], Service support , CC: Doris Navarro DO Dairy Lab Technician: Signed 20-Nov-2016 Operative Report Result: Comments: See Note; NOTES: [facility] Medical Records Department [address] [place] [address] Operative Report 11/14/16 0736 MR#: [id number] Acct: [id number] Name: MARICRUZ BREAUX Rep #: [id number] : 1940 76 From: Liza Duron DO PCP: Doris Navarro DO Status: [facility] Y Location: [facility] Report of Operation Date of Procedure: 11/14/16 Pre-Operative Diagnosi s: Right third and fourth trigger fingers Post-Operative Diagnosis: Name Surgery/Procedure Performed:: Right hand third and fourth A1 shannan release Type of Anesthesia:: Block,[place] Anesthesiologist: Fox Michaels Estimated Blood Loss (mL): [...] Dragon disclaimer This note was generated with [employer] dictation software. It may contain incorrect words, spellin g, and punctuation that were not noted in checking the note before signing. 11/20/16 1231 <Electronically signed by Liza Duron DO> Date Liza Duron DO CC: Liza Duron DO; Doris Navarro DO Signed 16-Nov-2016 Oncology Progress Note Result: Comments: See Note; NOTES: [facility] Medical Records Department [address] [facility] [place] [address] Oncology Progress Note MR#: [id number] Acct: [id number] Name: PORTIA GRIGSBY Rep #: [id number] : 1940 76 From: Sal Urrutia MD [...] level. Sal Urrutia MD T: NTS JOB: [id number] 11/16/16 0850 <Electronically signed by Sal Urrutia MD> Date Sal Urrutia MD Cosigner Signature (If Indicated): Date CC: Date Dictated: 11/08/16 1305 Date Transcribed: 11/08/16 1305 Dairy Lab Technician: Signed 14-Nov-2016 Discharge Instruction Result: Comments: See Note; NOTES: [facility] Medical Records Department [address] [place] [address] Instructions for Home/Discharge Instructions 11/14/16 0735 MR#: [id number] Acct: [id number] Name: MARICRUZ GRIGSBY Rep #: [id number] : 1940 76 From: Liza Duron DO [...] mg PO DAILY 11/09/16 Hydrocodone Bitart/Apap 5-325 [[place]cot[place] 5MG- 325MG] 1 - 2 tablet PO Q6H PRN PRN #20 tablet 11/14/16 The following prescriptions were given: Hydrocodone Bitart/Apap 5- 325 [[place] 5MG-325MG] 1 - 2 tablet PO Q6H PRN PRN #20 tablet PRN Reason: Pain Primary Care Physician: Doris Navarro DO [Primary Care Provider] - Please Follow Up With: Liza Duron [phone] 11/14/16 0736 <Electronically signed by Liza Duron DO> Date Liza Duron DO CC: Doris Navarro DO 20-Jul-2016 Chest PA and Lateral Result: Comments: See Note; NOTES: [facility] Imaging Services [address] [place] [address] Verdana 4d Chest PA and Lateral MR#: [id number] Acct: [id number] Name: JAQUAN GRIGSBY Rep #: [id number] : 1940 F 76 From: Mack Hand MD PCP: Doris Navarro DO Status: REG CLI Study: Chest PA and Lateral Date of Exam: 07/20/16 Exam# [id number] Ordering Dr: Doris Navarro DO STUDY: X-RAY [...] at 12:24 EST Tel , Service support [phone], CC: Doris Navarro DO Dairy Lab Technician: Signed 26-Jan-2016 Echocardiogram Complete Result: Comments: See Note; NOTES: [facility] Cardiovascular Services [address] [place] [address] Echo Complete 01/26/16 1008 MR#: [id number] Acct: [id number] Name: MARICRUZ PARMAR Rep #: [id number] : 1940 75 From: Mack Dickerson MD Attending Dr: Maggie Tracey DO Status: REG CLI Ordering Dr: Maggie Tracey DO Date: 01/26/16 Location: [facility] Sex: F C Admitt ed: Reason For [...] Date Dictated: 01/26/16 1008 Date Transcribed: 01/26/161611 Dairy Lab Technician: Signed 05-Dec-2015 Chest 1 View (Portable) Result: Comments: See Note; NOTES: [facility] Imaging Services [address] [place] [address] Verdana 4d Chest 1 View (Portable) MR#: [id number] Acct: [id number] Name: MARICRUZ PEÑALOZA Rep #: [id number] : 1940 F 75 From: Yari Garcia MD PCP: Maggie Tracey DO Status: PRE ER Study: Chest 1 View (Portable) Date of Exam: 12/05/15 Exam# [id number] Ordering Dr: Johnnie Baez MD STUDY: X-RAY [...] at 16:44 EDT Tel , Service support [phone], RAD/Chest 1 V iew (Portable) IMPRESSION: Underexpansion of the lungs. Mild to moderate cardiomegaly. Electronically Signed: Yari Garcia MD at 16:44 EDT Tel , Service support , CC: Maggie Tracey DO; Johnnie Baez MD Dairy Lab Technician: Signed 05-Dec-2015 Spirometry (04215) Comments: good effort and curvenormal Result: 05-Dec-2015 EKG (69831) Comments: ekg showed normal sinus rhythym, normal axis, no acute st/t wave changes Result: [MEASUREMENTS ANALYSIS] Date of Test: 12/05/2015 14:27:41; Heart Rate: 93; HI Interval: 202; QRS: 96; QT Interval: 352; Corrected QT Interval (QTc): 409; P Wave [place]: 48; QRS Wave [place]: -26; T Wave [place] : 55; Blood Pressure: 134/64 [ECG DIAGNOSTIC STATEMENTS] Date of Test: 12/05/2015 14:27:41; Summary: Sinus Rhythm WITHIN NORMAL LIMITS 21-Sep-2015 12 Lead Electrocardiogram Result: Comments: See Note; NOTES: [facility] Cardiovascular Services [address] [place] [address] 12 Lead EKG 09/19/15 0908 MR#: [id number] Acct: [id number] Name: MARICRUZ VIGIL Rep #: [id number] : 1940 75 From: Maurilio Meraz MD [...] wave progression Confirmed by SOLEDAD STREETER, MAURILIO ([id number]), department editor STACY CARTER (56) on 09/21/2015 11:27:40 AM Referred By: JE Confirmed By:MAURILIO MERAZ MD 1127 Date Maurilio Meraz MD CC: Maggie Tracey DO Date Dictated: 09/19/15907 Date Transcribed: 09/19/15907 Dairy Lab Technician: Signed 19-Sep-2015 Discharge Instruction Result: Comments: See Note; NOTES: [facility] Medical Records Department [address] [place] [address] Discharge Instruction 09/19/15 1020 MR#: [id number] Acct: [id number] Name: MARICRUZ GRIGSBY Rep #: [id number] : 1940 75 From: Johnnie Baez MD [...] pain, or any unexpected problems, contact [facility] doctor. Call [facility] ([phone]) or report to the closest Emergency Room. Call 911 if necessary. 09/19/15 1755 <Electronically signed by Johnnie Baez MD> Date __ Johnnie Baez MD Cosigner Signature (If Indicated): Date CC: Maggie Tracey DO 19-Sep-2015 Emergency Department Summary Result: Comments: See Note; NOTES: [facility] Medical Records Department [address] [facility] [address] Emergency Department Summary MR#: [id number] Acct: [id number] Name: MARICRUZ GRIGSBY Rep #: [id number] : 1940 75 From: Johnnie Baez MD [...] tachycardia at 112. No acute signs of FL or ischemia. White count 11.4, H and [...] C: Maggie Tracey DO T: CHERI JOB: [id number] 09/19/15 8287 <Electronically signed by Johnnie Baez MD& amp;#62; Date Johnnie Baez MD Cosigner Signature (If Indicated): Date CC: Maggie Tracey DO Date Dictated: 09/19/15 1019 Date Transcribed: 09/19/151018 Dairy Lab Technician: Signed 07-Sep-2015 Chest PA and Lateral Result: Comments: See Note; NOTES: [facility] Imaging Services [address] [place] [address] Verdana 4d Chest PA and Lateral MR#: [id number] Acct: [id number] Name: MARICRUZ HADLEY Rep #: [id number] : 1940 F 75 From: Kali Raymundo MD PCP: Maggie Tracey DO Status: REG CLI Study: Chest PA and Lateral Date of Exam: 09/07/15 Exam# [id number] Ordering Dr: Maggie Irwin DO STUDY: X-RAY [...] FACR at 11:41 EST , Service support [phone], RAD/Chest PA and Lateral IMPRESSION: No significant changes. Stable moderate cardiomegaly. Bilateral interstitial changes more prominent on the right. Wanda velazquez Signed: Kali Raymundo MD, FACR at 11:41 EST , Service support [phone], CC: Maggie Tracey DO Dairy Lab Technician: Signed 07-Sep-2015 Spirometry (64112) Comments: good effort and curve normal Result: 24-Mar-2015 PT Discharge Summary Result: Comments: See Note; NOTES: [facility] Physical Therapy [facility] [address] [place] [address] Fax REHABILITATION SERVICES DISCHARGE SUMMARY MR#: [id number] Acct: [id number] Name: MARICRUZ GRIGSBY Rep #: [id number] : 1940 75 From: Yuni Clark Referring [...] discharge. Yuni Clark, PT T: NTS JOB: [id number] <Electronically signed by Yuni Clark > 03/24/15 1227 CC: Maggie Tracey DO Signed 17-Feb-2015 Inital Evaluation - PT Result: Comments: See Note; NOTES: [facility] Physical [facility] [address] [place] [address] Fax REHABILITATION SERVICES INITIAL EVALUATION MR#: [id number] Acct: [id number] Name: MARICRUZ GRIGSBY Rep #: [id number] : 1940 75 From: Yuni Clark Referring Dr.: Maggie Tracey DO Status: REG RCR Insurance : MEDICARE PART A B Eval Date: [facility] DATE OF SERVICE: 02/16/2015 SUBJECTIVE: This [...] care. Yuni Clark, PT T: NTS JOB: [id number] <Electronically signed by Yuni Clark > 02/17/15 1011 CC: Signed For Medicare only, by seng yao this I certify the plan of care. Physicians Signature Date 08-Feb-2015 L/S Spine Min 4 Views Result: Comments: See Note; NOTES: [facility] Imaging Services [address] [place] [address] Radiology Report MR#: [id number] Acct: [id number] Name: CLIFFORD HOBBSMARICRUZ THORNE Rep #: [id number] : 1940 F 74 From: Teo Wayne MD PCP: Maggie Tracey DO Status: REG CLI Study: L/S Spine Min 4 Views Date of Exam: 02/08/15 Exam# [id number] Ordering Dr: Maggie Tracey DO STUDY: X-RAY [...] Wayne MD a t 12:30 EDT Tel [phone], Service support [phone], RAD/L/S Spine Min 4 Views IMPRESSION: Degenerative changes of the spine, as detailed above. Electro nically Signed: Teo Wayne MD at 12:30 EDT Tel [phone], Service support [phone], CC: Maggie Tracey DO Dairy Lab Technician: Signed 15-Nov-2014 Thyroid Result: Comments: See Note; NOTES: [facility] Imaging Services [address] [place] [address] Ultrasound Report MR#: [id number] Acct: [id number] Name: MARICRUZ GRIGSBY Rep #: [id number] : 1940 F 74 From: Julián Trivedi DO PCP: Maggie Tracey DO Status: REG CLI Study: Thyroid Date of Exam: 11/15/14 Exam# [id number] Ordering Dr: Maggie Tracey DO STUDY: THYROID [...] Julián Trivedi DO at 16:51 EDT Tel [phone], Service support [phone], Fax CC: Maggie Tracey DO Dairy Lab Technician: Signed 13-Sep-2014 Chest PA and Lateral Result: Comments: See Note; NOTES: [facility] Imaging Services [address] [place] [address] Radiology Report MR#: [id number] Acct: [id number] Name: MARICRUZ GRIGSBY Rep #: [id number] : 1940 F 74 From: Donato Abdi MD PCP: Maggie Tracey DO Status: REG CLI Study: Chest PA and Lateral Date of Exam: 09/13/14 Exam# [id number] Ordering Dr: Maggie Tracey DO STUDY: X [...] at 12:01 EST Tel , Service support [phone], CC: Maggie Tracey DO Dairy Lab Technician: Signed 15-Jul-2014 Chest PA and Lateral Result: Comments: See Note; NOTES: [facility] Imaging Services [address] [place] [address] Radiology Report MR#: [id number] Acct: [id number] Name: CLIFFORD CRUZJAQUANMARICRUZ Rep #: [id number] : 1940 F 74 From: Teo Wayne MD PCP: Maggie Tracey DO Status: REG CLI Study: Chest PA and Lateral Date of Exam: 07/15/14 Exam# [id number] Ordering Dr: Maggie Tracey DO SANDI DY: [...] Teo Wayne MD at 9:42 EST Tel [phone], Service support [phone], CC: Maggie Tracey DO Dairy Lab Technician: Signed 10-May-2014 Bilat Scrn Digital & CAD Result: Comments: See Note; NOTES: [facility] Imaging Services [address] [place] [address] Breast Imaging Report MR#: [id number] Acct: [id number] Name: JOSE AMARICRUZ GIANG ep #: [id number] : 1940 F 74 From: Gene Phillips PCP: Maggie Tracey DO Status: REG CLI Exam# [id number] Ordering Dr: Maggie Tracey DO MAMMOGRAPHY - [...] these results will be sent to the [facility] ient by the facility within 30 days. Approximately 10% of breast cancers are not detected by mammography. A normal mammogram should not delay biopsy of a clinically suspicious abnormality. Electro nically Signed: Jessenia Phillips MD at 19:48 EDT Tel , Service support [phone], CC: Maggie Tracey DO Dairy Lab Technician: Signed 10-Sep-2013 Dexa Bone Density Study (HP) Result: Comments: See Note; NOTES: [facility] Imaging Services [address] [place] [address] Bone Density Report MR#: [id number] Acct: [id number] Name: MARICRUZ GRIGSBY Rep #: [id number] : 1940 F 73 From: Teo Wayne MD PCP: Maggie Tracey DO Status: REG CLI Study: Dexa Bone Density Study (HP) Date of Exam: 09/10/13 Exam# [id number] Ordering Dr: Maggie Tracey DO STUDY: DUAL [...] M.D. at 11:04 EST , Service support [phone], CC: Maggie Tracey DO Dairy Lab Technician: Signed Immunization Name Dates Details Influenza (3 years and up) on: 04-Jun-2007 Comments: Lot #: [id number] date: 01/03Amount given: 0.5 MLRoute: IMSite given: Left deltoidGiven by: Nathaniel Beal LPN Influenza (3 years and up) on: 12-May-2009 Comments: Lot #[id number]-left deltoidgiven by:CDH Family History Unknown Family Member Name Dates Details Cancer Status: Active Diabetes Mellitus Status: Active Father Comments: [place], hypercholesterolemia Status: Active First Degree Relatives Comments: [...] kg/m2 Body Surface Area Calculated 2.06 m2 87-Iot-818558:15 Pulse 81 /min Comments: Pattern: Regular Respiration [...] kg/m2 Body Surface Area Calculated 2.06 m2 78-Dho-326713:32 Temperature 97.6 f Comments: Method: Temporal Pulse [...] kg/m2 Body Surface Area Calculated 2.06 m2 6-Phu-292998:26 Comments: orthostatic bp assessment: 12:10pmlying- 170/90 76hrsitting- [...] m2 :38 Comments: hearing wnlDr. Amy and ehrrera da glaucoma test done Pulse 75 /min [...] administered 81mg asa orally at this time also-[facility] BP Systolic 156 mm[Hg] Comments: Patient Position: [...] Value Details :50 Rapid Strep Test, Office (24876) Rapid Strep Test, Office Negative (Normal) :58 TSH (15467) Comments: PATIENT NOT FASTINGPERFORMED BY: SHIMAUMA Print SystemBe[facility]ont Hospital6370 [facility] [id number] TSH 5.590 {uIU/mL} (Abnormal) Range: 0.450-4.500 :58 T4, FREE (THYROXINE) (41543) Comments: PATIENT NOT FASTINGPERFORMED BY: iDevicesVirtua VoorheesOumgnd9537 [facility] [id number] T4,Free(Direct) 1.81 ng/dL (Abnormal) Range: 0.82-1.77 :58 T3, FREE (TRIDOTHYRONINE) (29543) Comments: PATIENT NOT FASTINGPERFORMED BY: SHIMAUMA Print SystemBeaumont Hospital6370 [facility] [id number] Triiodothyronine (T3), Free 2.1 pg/mL (Normal) Range: [...] Muscle ABS Comments: Comments: ANTI-LIVER/KIDNEY MICRO AB [id number] [facility] (refer to report for specific site)refer [...] MELI-DIRECT Negative (Normal) Comments: Performed at: - [facility] [id number] Director: Constantine Christianson PhD, Phone: [phone] Ceruloplasmin Comments: Comments: ANTI-LIVER/KIDNEY MICRO AB [id number] [facility] (refer to report for specific site)refer to report for address and phone number CERULOPLAS 1560 22.0 mg/dL (Normal) Range: 19.0-39.0 :44 CMV Acute Antibody IgM Comments: Comments: ANTI-LIVER/KIDNEY MICRO AB [id number] [facility] (refer to report for specific site)refer to report for address and phone number CMVIgM AB < 30.0 AU/mL (Normal) Range: 0.0-29.9 Comments: Negative <30.0 Equivocal 30.0 - 34.9 Positive >34.9A positive result is generally indicative of acuteinfection, reactivation or persistent IgM production. :44 Ferritin Comments: Comments: ANTI-LIVER/KIDNEY MICRO AB [id number] SER/[facility] Uckypbwgdh[address] [place], [address] FERRITIN 236 ng/mL (Normal) Range: 8-252 :44 Free T3 Comments: Comments: ANTI-LIVER/KIDNEY MICRO AB [id number] SER/[facility] Cowptpotvi8092 [place], [address] FREE T3 1.6 pg/mL (Abnormal) Range: 2.18-3.98 :44 GGTP 64 U/L (Abnormal) Comments: Comments: ANTI-LIVER/KIDNEY MICRO AB [id number] SER/[facility] [address] [place], [address] Range: 5-55 :44 Hepatitis Panel Acute Comments: Comments: ANTI-LIVER/KIDNEY MICRO AB [id number] [facility] (refer to report for specific site)refer to report for address and phone number HEP C AB <0.1 {s/co_ratio} (Normal) Range: 0.0-0.9 Comments: Negative: < 0.8 Indeterminate: 0.8 - 0.9 Positive: > 0.9 The CDC recommends that a positive HCV antibody result be followed up with a HCV Nucleic Acid Amplification test (289174). HB CORE [id number] Negative (Normal) HB SURF AG Negative (Normal) HEP A IgM 6734 Negative (Normal) :44 Liver Profile Comments: Comments: ANTI-LIVER/KIDNEY MICRO AB [id number] SER/[facility] [address]chgig[address] [place], [address] D BILI 0.17 mg/dL (Normal) Range: 0.00-0.30 T BILI 0.60 mg/dL (Normal) Range: 0.20-1.00 ALT 48 U/L (Normal) Range: 13-56 ALK P 93 U/L (Normal) Range: 45-117 AST 43 U/L (Abnormal) Range: 15-37 GLOB 3.5 g/dL (Normal) Range: 2.2-4.2 ALB 3.7 g/dL (Normal) Range: 3.2-5.0 T PROT 7.2 g/dL (Normal) Range: 6.4-8.2 :44 Miscellaneous Lab Procedure Comments: Comments: ANTI-LIVER/KIDNEY MICRO AB [id number] SER/RFTest(s) Ordered: ANTI-LIVER/KIDNEY MICROS AB [id number] SER/[facility] [address]xj[address] [place], [address] MISC Comments: TEST RESULT UNITS REF INTERVALLiver- Kidney Microsomal Ab <1.0 Units 0.0 - 20.0 Negative 0.0 - 20.0 LAB (Normal) Equivocal 20.1 - 24.9 Positive >24.9LKM type 1 antibodies are detected in patients withautoimmune hepatitis type 2 and in up to 8% ofpatients wi TEST th chronic HCV infection. [facility]. ORIGINAL REPORT ON FILE IN LAB CONTAINS ADDITIONAL TEST SITE INFORMATION. :44 T4 Free Direct Comments: Comments: ANTI-LIVER/KIDNEY MICRO AB [id number] SER/[facility] Ulblwmnfr[address] [place] [address], [id number] T4 FREE DIRECT 1.06 ng/dL (Normal) Range: 0.76-1.46 :44 Thyroid Stim Hormone (TSH) Comments: Comments: ANTI-LIVER/KIDNEY MICRO AB [id number] [facility] Gswdjivmng3951 [facility] [place], [address] TSH 16.40 {uIU/mL} (Abnormal) Range: 0.358-3.74 :44 Transferrin Comments: Comments: ANTI-LIVER/KIDNEY MICRO AB [id number] [facility] (refer to report for specific site)refer to report for address and phone number TRANSFERRN 7879 250 mg/dL (Normal) Range: 200-370 Comments: Performed at: [address] [id number] Director: Constantine Christianson PhD, Phone: [phone] 78-Dpk-449188:16 Bedside Glucose Comments: [facility] LaboratoryPoint of [address] [address] BEDSIDE GLU 152 mg/dL (Abnormal) Range: 70-110 Comments: MANAGEMENT OF PATIENT CARE PER NURSING PROTOCOL 80-Kjh-682421:45 Basic Metabolic Profile (BMP) Comments: [facility] [address] [place], [place], [id number] GAP 8 (Normal) Range: 5-15 CO2 28.0 [...] A.D.A. criteria.Please note revised GLUCOSE reference range jmdvvatcd79/02/2018. 60-Fxx-856803:45 CBC W/Diff, Automated Comments: [facility] [address] [place], [place], [address] Absolute Lymph 1.73 {X10_3/ul} (Normal) Range: 0.83-4.51 [...] 4.2-5.4 WBC 9.5 K/mm3 (Normal) Range: 4.4-11.0 18-Vhh-943209:45 Partial Thromboplast Time Comments: [facility] Dyxhczmkqr0945 [facility] [place], [address] PTT 33.0 s (Normal) Range: 24.1-36.2 65-Yxl-904283:45 Prothrombin Time w/INR Comments: [facility] Wmmekpwgjh7476 [facility] [place], [address] INR 0.9 (Normal) PROTIME 12.5 s (Normal) Range: 11.7-14.9 08-Dtl-167181:45 Troponin-I Comments: [facility] Ngvarecmmw1658 [facility] [place], [address] TROPONIN-I < 0.015 ng/mL Comments: TROPONIN-I EXPECTED VALUES <0.045 Negative 0.045 - 0.590 Consistent with Cardiac Damage > OR = 0.600 Critical Value Not every elevated troponin is indicative of [place]. T (Normal) hesevalues should be used with clinical judgement in examiningthe patient's clinical picture for diagnosis. To establisha diagnosis of FL versus myocardial injury, there must be ademonstrated rise and/ or fall in the troponin values, inaddition to ischemic symptoms, EKG changes, new regionalwall motion abnormality, and/or angiographical evidence. PLEASE NOTE: REFERENCE RANGES EDITED 17 Liver-Kidney <1.0 {Units} Comments: PATIENT NOT FASTINGPERFORMED BY: cFares Efbnfi2228 [facility] [id number] 2:14 Microsomal Ab (Normal) Range: 0.0-20.0 Comments: Negative 0.0 - 20.0 Equivocal 20.1 - 24.9 Positive >24.9 . LKM type 1 antibodies are detected in patients with autoimmune hepatitis type 2 and in up to 8% of patients with chronic HCV infection. 07-Pdz-641563:14 HEPATIC FUNCTION PANEL Comments: PATIENT NOT FASTINGPERFORMED BY: [facility]6370 [facility] [id number] (26047) ALT (SGPT) 49 [iU]/L (Abnormal) Range: 0-32 AST (SGOT) 57 [iU]/L (Abnormal) Range: 0-40 Alkaline Phosphatase 100 [iU]/L (Normal) Range: 39-117 Bilirubin, Direct 0.14 mg/dL (Normal) Range: 0.00-0.40 Bilirubin, Total 0.4 mg/dL (Normal) Range: 0.0-1.2 Albumin 4.1 g/dL (Normal) Range: 3.5-4.8 Protein, Total 6.8 g/dL (Normal) Range: 6.0-8.5 07-Mtr-887966:14 HEPATITIS PANEL (51692) Comments: PATIENT NOT FASTINGPERFORMED BY: [facility] Bvrxfb7600 [facility] [id number] Hep C Virus Ab <0.1 {s/co_ratio} (Normal) Range: 0.0-0.9 Comments: Negative: < 0.8 Indeterminate: 0.8 - 0.9 Positive: > 0.9 . The CDC recommends that a positive HCV antibody result be followed up with a HCV Nucleic Acid Amplification test (220700). Hep B Core Ab, IgM Negative (Normal) HBsAg Screen Negative (Normal) Hep A Ab, IgM Negative (Normal) 11-Zrn-999551:14 ANTIMITOCHONDRIAL ANTIBODY Comments: PATIENT NOT FASTINGPERFORMED BY: SHIMAUMA Print SystemSt. [facility] Pwkumh2918 [facility] [id number] (61689) Mitochondrial (M2) Antibody <20.0 {Units} (Normal) Range: 0.0-20.0 Comments: Negative 0.0 - 20.0 Equivocal 20.1 - 24.9 Positive >24.9 . Mitochondrial (M2) Antibodies are found in 90-96% of patients with primary biliary cirrhosis. 11-Fcs-039467:14 TRANSFERRIN (32927) Comments: PATIENT NOT FASTINGPERFORMED BY: [facility]6370 [facility] [id number] Transferrin 226 mg/dL (Normal) Range: 200-370 24-Gso-160987:14 GGT (GAMMA GLUTAMYLTRANSFERASE) Comments: PATIENT NOT FASTINGPERFORMED BY: [facility]6370 [facility] [id number] (88590) GGT 59 [iU]/L (Normal) Range: 0-60 72-Tks-348538:14 FERRITIN (50139) Comments: PATIENT NOT FASTINGPERFORMED BY: [facility] Wduect4372 [facility] [id number] Ferritin, Serum 545 ng/mL (Abnormal) Range: 15-150 07-Bry-065963:14 CMV IGM ANTBDY (62957) Comments: PATIENT NOT FASTINGPERFORMED BY: [facility] Nyupsw4668 [facility] [id number] Cytomegalovirus (CMV) Ab, IgM <30.0 AU/mL (Normal) Range: 0.0-29.9 Comments: Negative <30.0 Equivocal 30.0 - 34.9 Positive >34.9 A positive result is generally indicative of acute infection, reactivation or persistent IgM production. 43-Tjw-726097:14 CERULOPLASMIN (63667) Comments: PATIENT NOT FASTINGPERFORMED BY: [facility] Rzjpcy9445 [facility] [id number] Ceruloplasmin 26.3 mg/dL (Normal) Range: 19.0-39.0 71-Waj-214645:14 ASM (ANTI SMOOTH MUSCLE Comments: PATIENT NOT FASTINGPERFORMED BY: CORTEZ Griffin Dznnwb9073 [facility] [place] [id number] ANTIBODY) (52278) Actin (Smooth Muscle) Antibody 5 {Units} (Normal) Range: 0-19 Comments: Negative 0 - 19 Weak positive 20 - 30 Moderate to strong positive >30 . Actin Antibodies are found in 52-85% of patients with autoimmune hepatitis or chronic active hepatitis and in 22% of patients with primary biliary cirrhosis. 04-Ffa-416045:14 MELI (ANTINUCLEAR ANTIBODY) Comments: PATIENT NOT FASTINGPERFORMED BY: CORTEZ SHIMAUMA Print SystemSt. [facility] Qmzoyr8276 [facility]er [facility] [id number] (55459) MELI Direct Negative (Normal) 16-Bua-266530:33 HgA1C , Office (10581) HgA1C , Office 7.2 % (Abnormal) Range: 4.6 - 7.1 76-Rdi-957819:38 MELI (ANTINUCLEAR ANTIBODY) Comments: PATIENT NOT FASTINGPERFORMED BY: LabSt. [facility] Mrqxiz7765 Waller [facility] [id number] (96062) MELI Direct Negative (Normal) 46-Xzw-993570:38 VITAMIN B-12 (CYANOCOBALAMIN) Comments: PATIENT NOT FASTINGPERFORMED BY: SHIMAUMA Print SystemSt. [facility] Wmqltd5101 [facility] [id number] (95206) Vitamin B12 463 pg/mL (Normal) Range: 232-1245 80-Kle-743865:38 TSH (86017) Comments: PATIENT NOT FASTINGPERFORMED BY: LabSt. [facility] Imvmxq5221 Waller [facility] [id number] TSH 0.062 {uIU/mL} (Abnormal) Range: 0.450-4.500 03-Vgw-037260:38 SED RATE ERYTHROCYTE (77897) Comments: PATIENT NOT FASTINGPERFORMED BY: CORTEZ [facility] Rclsvc4615 [facility] [facility] [id number] Sedimentation Rate-Westergren 7 mm/h (Normal) Range: 0-40 52-Bnn-170206:38 METABOLIC PANEL, COMPREHENSIVE Comments: PATIENT NOT FASTINGPERFORMED BY: [facility] Uuapmi0304 [facility] [id number] (10525) ALT (SGPT) 52 [iU]/L (Abnormal) Range: 0-32 [...] 8-27 Glucose 134 mg/dL (Abnormal) Range: 65-99 38-Kxn-459530:38 C-REACTIVE PROTEIN (36800) Comments: PATIENT NOT FASTINGPERFORMED BY: LabCoVirtua VoorheesJtzvab5533 [facility] [id number] C-Reactive Protein, Quant 4.8 mg/L (Normal) Range: 0.0-4.9 96-Cye-754488:38 CBC (AUTO) (93767) Comments: PATIENT NOT FASTINGPERFORMED BY: LabCoVirtua VoorheesPnxsqf5771 [facility] [id number] Platelets 248 {x10E3/uL} Range: 150-379 (Normal) RDW [...] mg/L (Abnormal) Comments: PATIENT NOT FASTINGPERFORMED BY: Qwiqq [facility] [id number] BY: [address] [id number] 2:25 Serum Range: 0.6-2.4 Comments: Siemens Microbondsulite 2000 Immunochemiluminometric assay (ICMA) 0-Eue-403713:25 Immunoglobulins Comments: PATIENT NOT FASTINGPERFORMED BY: Paxatalin6370 [facility] [id number] BY: iDevices[address] [id number] Iga/Ige/Igg/Igm (GAME) (74875) Immunoglobulin E, Total 259 {IU/mL} (Abnormal) Range: 0-100 Immunoglobulin M, Qn, Serum 113 mg/dL (Normal) Range: 26-217 Immunoglobulin A, Qn, Serum 130 mg/dL (Normal) Range: 64-422 Immunoglobulin G, Qn, Serum 837 mg/dL (Normal) Range: 700-1600 2-Knq-660497:25 LDH (LD) (LACTATE Comments: PATIENT NOT FASTINGPERFORMED BY: cFares[address] [id number] BY: [address] [id number] DEHYDROGENASE) (31849) LDH 195 [iU]/L (Normal) Range: 119-226 2-Igv-276989:25 METABOLIC PANEL, Comments: PATIENT NOT FASTINGPERFORMED BY: iDevicesDerek [place] 4330370 [facility] [id number] BY: SHIMAUMA Print System[address] [id number] COMPREHENSIVE (78005) ALT (SGPT) 47 [iU]/L (Abnormal) Range: 0-32 [...] 8-27 Glucose 139 mg/dL (Abnormal) Range: 65-99 3-Lmj-181344:25 CBC, PLATELETS & AUT DIFF Comments: PATIENT NOT FASTINGPERFORMED BY: iDevicesDerek [place] 4330370 [facility] [id number] BY: SHIMAUMA Print System[address] [id number] (30052) Immature Grans (Abs) 0.0 {x10E3/uL} (Normal) Range: [...] 3.77-5.28 WBC 7.2 {x10E3/uL} (Normal) Range: 3.4-10.8 08-Wpl-520968:28 Microscopic Examination Comments: PATIENT NOT FASTINGPERFORMED BY: VirtuataThe [facility] [id number] Bacteria None seen (Normal) Mucus Threads Present (Normal) Cast Type Hyaline casts (Normal) Casts Present {/lpf} (Abnormal) Epithelial Cells (non renal) 0-10 {/hpf} (Normal) Range: 0 - 10 RBC 0-2 {/hpf} (Normal) Range: 0 - 2 WBC >30 {/hpf} (Abnormal) Range: 0 - 5 53-Yxf-204706:24 URINE RANI CULTURE-RADHA COL Comments: PATIENT NOT FASTINGPERFORMED BY: cFares AdExtentThe [facility]er [facility] Hospital [id number] Information: SRC:UC COUNT (34238) Antimicrobial MIHEAD (Normal) Comments: S = Susceptible; I = Intermediate; R = Resistant P = Positive; N = Negative MICS are expressed in micrograms per mL Antibiotic RSLT#1 RSLT#2 RS Susceptibility LT#3 RSLT#4Amoxicillin/Clavulanic Acid SAmpicillin RCefepime SCeftriaxone SCefuroxime SCephalothin SCiprofloxacin SGentamicin SImipenem SNitrofurantoin SPiperacillin RTetracycline STobram ycin STrimethoprim/Sulfa S Result 1 Raoultella Comments: 5,000 Colonies/mL planticola (Abnormal) Urine Final report Culture,Comprehensive (Abnormal) 13-Xfj-242450:28 MICROALBUMIN: CREATININE RATIO Comments: PATIENT NOT FASTINGPERFORMED BY: iDevicesVirtua VoorheesIgaamp9151 [facility] [id number] (27552) AND (80080) Alb/Creat Ratio 215.8 {mg/g_creat} (Abnormal) Range: 0.0-30.0 Albumin, Urine 245.4 ug/mL (Normal) Creatinine, Urine 113.7 mg/dL (Normal) 77-Mbk-034543:28 URINALYSIS, W/ MICRO (05936) Comments: PATIENT NOT FASTINGPERFORMED BY: SHIMAUMA Print SystemBeaumont Hospital6370 [facility] [id number] Microscopic Examination See below: (Normal) Comments: Microscopic was indicated and was performed. Nitrite, Urine Negative (Normal) Urobilinogen,Semi-Qn 0.2 mg/dL (Normal) Range: 0.2-1.0 Bilirubin Negative (Normal) Occult Blood Negative (Normal) Ketones Negative (Normal) Glucose Trace (Abnormal) Protein 1+ (Abnormal) WBC Esterase 1+ (Abnormal) Appearance Clear (Normal) Urine-Color Yellow (Normal) pH 5.5 (Normal) Range: 5.0-7.5 Specific [place] 1.025 (Normal) Range: 1.005-1.030 83-Qfc-849139:28 METABOLIC PANEL, COMPREHENSIVE Comments: PATIENT NOT FASTINGPERFORMED BY: [place] [id number] [facility] [id number] (99531) ALT (SGPT) 37 [iU]/L (Abnormal) Range: 0-32 [...] Glucose, Serum 179 mg/dL (Abnormal) Range: 65-99 05-Mtp-618068:28 CBC, PLATELETS & AUT DIFF Comments: PATIENT NOT FASTINGPERFORMED BY: [facility] Cyxcnw2370 [facility] [id number] (36732) Immature Grans (Abs) 0.0 {x10E3/uL} (Normal) Range: [...] 3.77-5.28 WBC 9.3 {x10E3/uL} (Normal) Range: 3.4-10.8 18-Nlr-747961:28 TSH (THYROID STIMULATING Comments: PATIENT NOT FASTINGPERFORMED BY: iDevicesVirtua VoorheesJsignv0133 [facility] [id number] HORMONE) (02526) TSH 23.220 {uIU/mL} (Abnormal) Range: 0.450-4.500 91-Gdp-037982:28 LIPID PANEL (77885) Comments: PATIENT NOT FASTINGPERFORMED BY: iDevicesVirtua VoorheesOpymfj7039 [facility] [id number] LDL/HDL Ratio 1.7 {ratio_units} (Normal) Range: 0.0-3.2 Comments: LDL/HDL Ratio Men Women 1/2 Avg.Risk 1.0 1.5 Av g.Risk 3.6 3.2 2X Avg.Risk 6.2 5.0 3X Avg.Risk 8.0 6.1 LDL Cholesterol Calc 83 mg/dL (Normal) Range: 0-99 VLDL Cholesterol Priscilla 42 mg/dL (Abnormal) Range: 5-40 HDL Cholesterol 48 mg/dL (Normal) Triglycerides 208 mg/dL (Abnormal) Range: 0-149 Cholesterol, Total 173 mg/dL (Normal) Range: 100-199 07-Bpl-404986:28 CALCIFEDIOL (46516) Comments: PATIENT NOT FASTINGPERFORMED BY: [facility] Ctfrkx4067 [place] [id number] Vitamin D, 25-Hydroxy 25.4 ng/mL (Abnormal) Range: 30.0-100.0 Comments: Vitamin D deficiency has been defined by the [place] ofMedicine and an Endocrine Society practice guideline as alevel of serum 25-OH vitamin D less than 20 ng/mL (1,2).The Endocrine Society went on to further define vitamin Dinsufficiency as a level between 21 and 29 ng/mL (2).1. IOM ([place] of Medicine). 2010. Dietary reference intakes for calcium and D. [place]: The National Academies Press.2. Rachel MF, Yael MARLEY, Dunia HERRERA, et al. Evaluation, treatment, and prevention of vitamin D deficiency: an Endocrine Society clinical practice guideline. JCEM. 2010; 96(7):1911-30. 45-Ecw-475390:40 Basic Metabolic Profile (BMP) Comments: 'TROP' Serial specimen #1, #2, #3, or #4: [address] [place] [address] [address] [place], [address] GAP 11 (Normal) Range: 5-15 CO2 24.0 [...] 126 mg/dLsuggests DIABETES MELLITUS per A.D.A. criteria. 07-Xjh-983762:40 BNP,B-Type NATRIURETIC PEPTIDE Comments: [facility] Ondvfsryfc[address] [place], [place], [address] B-TYPE SANJU PEP 13.3 pg/mL (Normal) Range: 0-100 15-Wee-275296:40 CBC W/Diff, Automated Comments: [facility] [address]jbzoayzc[address] [place], [place], [address] Absolute Lymph 1.65 {X10_3/ul} (Normal) Range: 0.83-4.51 [...] 4.2-5.4 WBC 4.1 K/mm3 (Abnormal) Range: 4.4-11.0 88-Cpb-879733:40 Troponin-I Comments: 'TROP' Serial specimen #1, #2, #3, or #4: [address] [place] [address] V[address]ymwseak[address] [place], [address] TROPONIN-I < 0.02 ng/mL (Normal) Comments: TROPONIN-I EXPECTED VALUES <0.05 NEGATIVE 0.06 - 0.59 AT RISK OF FL > OR = 0.60 SUGGEST FL 18-Acg-190103:08 Microscopic Examination Comments: PATIENT WAS FASTINGPERFORMED BY: [facility]6370 [facility] [id number] Bacteria Few (Normal) Mucus Threads Present (Normal) Cast Type Hyaline casts (Normal) Casts Present {/lpf} (Abnormal) Epithelial Cells (non renal) 0-10 {/hpf} (Normal) Range: 0 - 10 RBC 0-2 {/hpf} (Normal) Range: 0 - 2 WBC 11-30 {/hpf} (Abnormal) Range: 0 - 5 86-Prk-661888:08 CALCIFIDIOL (95657) VIT D 25 Comments: PATIENT WAS FASTINGPERFORMED BY: LabReduxiorp Tsizox2013 [facility] [id number] Vitamin D, 25-Hydroxy 33.5 ng/mL (Normal) Range: 30.0-100.0 Comments: Vitamin D deficiency has been defined by the [place] of[place]icine and an Endocrine Society practice guideline as alevel of serum 25-OH vitamin D less than 20 ng/mL (1,2).The Endocrine Society went on to further define vitamin Dinsufficiency as a level between 21 and 29 ng/mL (2).1. IOM ([place] of Medicine). 2010. Dietary reference intakes for calcium and D. [place]: The National Academies Press.2. Rachel MF, Yael MARLEY, Dunia HERRERA, et al. Evaluation, treatment, and prevention of vitamin D deficiency: an Endocrine Society clinical practice guideline. JCEM. 2010; 96(7):1911-30. 19-Lxr-333433:08 TSH (11194) Comments: PATIENT WAS FASTINGPERFORMED BY: [facility]6370 [facility] [id number] TSH 3.700 {uIU/mL} (Normal) Range: 0.450-4.500 58-Hop-812351:08 LIPID PANEL (02736) Comments: PATIENT WAS FASTINGPERFORMED BY: [facility]6370 [facility] [id number] LDL/HDL Ratio 1.8 {ratio_units} (Normal) Range: 0.0-3.2 Comments: LDL/HDL Ratio Men Women 1/2 Avg.Risk 1.0 1.5 Av g.Risk 3.6 3.2 2X Avg.Risk 6.2 5.0 3X Avg.Risk 8.0 6.1 LDL Cholesterol Calc 84 mg/dL (Normal) Range: 0-99 VLDL Cholesterol Priscilla 49 mg/dL (Abnormal) Range: 5-40 HDL Cholesterol 46 mg/dL (Normal) Triglycerides 243 mg/dL (Abnormal) Range: 0-149 Cholesterol, Total 179 mg/dL (Normal) Range: 100-199 95-Yhu-888357:08 URINALYSIS, W/ MICRO (91101) Comments: PATIENT WAS FASTINGPERFORMED BY: [facility]6370 [facility] [id number] Microscopic Examination See below: (Normal) Comments: Microscopic was indicated and was performed. Nitrite, Urine Negative (Normal) Urobilinogen,Semi-Qn 0.2 mg/dL (Normal) Range: 0.2-1.0 Bilirubin Negative (Normal) Occult Blood Negative (Normal) Ketones Negative (Normal) Glucose Negative (Normal) Protein 2+ (Abnormal) WBC Esterase 1+ (Abnormal) Appearance Clear (Normal) Urine-Color Yellow (Normal) pH 5.5 (Normal) Range: 5.0-7.5 Specific [place] >=1.030 (Abnormal) Range: 1.005-1.030 62-Bii-588507:08 MICROALBUMIN: CREATININE RATIO Comments: PATIENT WAS FASTINGPERFORMED BY: [facility]6370 [facility] [id number] (82174) AND (46982) Microalb/Creat Ratio 246.3 {mg/g_creat} (Abnormal) Range: 0.0-30.0 Microalbumin, Urine 433.7 ug/mL (Normal) Comments: Results confirmed ondilution. Creatinine, Urine 176.1 mg/dL (Normal) 72-Sir-035191:08 METABOLIC PANEL, COMPREHENSIVE Comments: PATIENT WAS FASTINGPERFORMED BY: [employer]70 Klik TechnologiesThe Outer Banks Hospital [id number] (59603) ALT (SGPT) 26 [iU]/L (Normal) Range: 0-32 [...] Glucose, Serum 158 mg/dL (Abnormal) Range: 65-99 28-Kwg-141257:08 CBC W/AUTO DIFF WBC (04919) Comments: PATIENT WAS FASTINGPERFORMED BY: [employer] LabHardDrones70 Klik TechnologiesThe Outer Banks Hospital [id number] Immature Grans (Abs) 0.0 {x10E3/uL} (Normal) Range: [...] (Normal) Range: 3.4-10.8 :31 HgA1C , Office (39921) HgA1C , Office 6.6 % (Normal) Range: 4.6 - 7.1 :31 Blood Glucose , Office (79081) Blood Glucose , Office 143 (Normal) :45 CBC W/Diff, Automated Comments: [facility] [id number] [place], [place], [id number] Absolute Lymph 1.46 {X10_3/ul} (Normal) Range: 0.83-4.51 [...] 4.2-5.4 WBC 12.9 K/mm3 (Abnormal) Range: 4.4-11.0 [id number]:45 Comprehensive Metabolic Profil Comments: [facility] [facility] [address] [place], [place], [address] GAP 8 (Normal) Range: 5-15 CO2 27.0 [...] 126 mg/dLsuggests DIABETES MELLITUS per A.D.A. criteria. 8-Iir-572589:45 Prothrombin Time w/INR Comments: [facility] [address] [place], [place], [address] INR 0.9 (Normal) PROTIME 11.6 s (Abnormal) Range: 11.7-14.9 4-Jjo-911178:12 HgA1C , Office (49545) HgA1C , Office 6.5 % (Normal) Range: 4.6 - 7.1 7-Omf-717599:12 Blood Glucose , Office (70785) Blood Glucose , Office 122 (Normal) 53-Plc-56166:39 Lipid Profile Comments: [facility] [address] [place], [place], [address] VLDL 39 mg/dL (Normal) Range: 5-40 LDL [...] report for address and phone number METHYLM [id number] 215 nmol/L (Normal) Range: 0-378 Comments: Performed at: [address] [id number] Director: Frantz Josue MD, Phone: [phone] :[phone] Vitamin B12 531 pg/mL (Normal) Comments: [facility] [address] [place], [address] Range: 211-911 :39 Vitamin D,25 Hydroxy Comments: [facility] [address] [place], [address] Vitamin D 25-OH 44.7 ng/mL (Normal) Comments: Vitamin D 25(OH) Status Range Deficiency <20 ng/mL (50nmol/L) Insuffciency 20 - 30 ng/mL (50 - 75 nmol/L) Sufficiency 30 - 100 ng/mL (75 - 250 nmol/L) Toxicity >100 ng/mL (>250 nmol/L) :29 Bedside Glucose Comments: [facility] LaboratoryPoint of Areo[address] [place] [address] BEDSIDE GLU 139 mg/dL (Abnormal) Range: 70-110 Comments: No Action RequiredMANAGEMENT OF PATIENT CARE PER NURSING PROTOCOL COLON BIOPSY (CHOOSE See Note (Normal) Comments: [facility] [address] [place], [address] :54 SITE) Comments: Patient: MARICRUZ GRIGSBY : 1940 (76/F) Acct Num: [id number] Phys: Constantine Saunders Unit Num: [id number] Loc: LABSPEC Specimen: [id number] Received: 11/05/16 - 163 Spe c Type: [...] one cassette. / RY:edita 11/06/16 TC:1 CPT: 15343 x2 HEADER OPERATION: Colonoscopy with polypectomy PRE-OP [...] Signed Zane Elliott 11/07/16 <signature on file> 76-Eem-156578:47 CBC W/Diff, Automated Comments: [facility] [address] [place], [place], [address] Absolute Lymph 1.88 {X10_3/ul} (Normal) Range: 0.83-4.51 [...] 4.2-5.4 WBC 8.8 K/mm3 (Normal) Range: 4.4-11.0 60-Fhi-545674:42 Comprehensive Metabolic Profil Comments: Order Date: 10/10/16Order Info: 0786-1 - *CMP Complete Metabolic PanelOrder Info: 23204-7 - *IBC Iron \E AND E\ Total Iron Binding CapacityOrder Info: 2276-4 - *FerritinComments: Reason:Order Date: 10/10/16Order Info: 73236-6 - *K[place]LAMBDA - [place] Lamda Light ChainsComments: Reason:[facility] [address]cf[address]75 [facility] [place], [place], [address] GAP 9 (Normal) Range: 5-15 CO2 28.0 [...] <126 mg/dLsuggests IMPAIRED HOMEOSTASIS per A.D.A. criteria. 16-Qma-464674:42 Ferritin Comments: Order Date: 10/10/16Order Info: 0786-1 - *CMP Complete Metabolic PanelOrder Info: 69490-2 - *IBC Iron \E AND E\ Total Iron Binding CapacityOrder Info: 2276-4 - *FerritinComments: Reason:Order Date: 10/10/16Order Info: 93463-7 - *[place]DA - [place] Lamda Light ChainsComments: Reason:[facility] [address] [place], [place], [address] FERRITIN 45 ng/mL (Normal) Range: 8-252 88-Axu-357459:42 DEEPALI + Protein Elect, Serum Comments: Order Date: 10/10/16Order Info: 0282-1 - *IMEL DEEPALI + Prot Elec, Serum 1495Order Info: 04196-8 - *[place] - [place] Lamda Light ChainsOrder Date: 10/10/16Order Info: 0282-1 - *IMEL DEEPALI + Prot Elec, Serum 1495Order Info: [id number] - *[place] - [place] Lamda Light ChainsOrder Date: 10/10/16Order Info: 57043-3 - *[place] - [place] Lamda Light ChainsIs Patient Fasting? NComments: Reason:[facility] (refer to report for specific site)refer to report for address and phone number NOTE: Comment (Normal) Comments: Protein electrophoresis scan will follow via computer,mail, or seismic observer delivery. DEEPALI RESULT,S Comment (Normal) Comments: Immunofixation shows IgG monoclonal protein with lambdalight chain specificity. A/G RATIO 1.4 (Normal) Range: 0.7-1.7 GLOBULIN, TOTAL 2.8 g/dL (Normal) Range: 2.2-3.9 M-SPIKE 0.3 g/dL (Abnormal) GAMMA GLOBULIN 0.8 g/dL (Normal) Range: 0.4-1.8 BETA GLOBULIN 0.9 g/dL (Normal) Range: 0.7-1.3 LAZFS-0-QRLS 0.9 g/dL (Normal) Range: 0.4-1.0 NNTYB-9-XZZX 0.2 g/dL (Normal) Range: 0.0-0.4 ALBUMIN 3.7 g/dL (Normal) Range: 2.9-4.4 IMMUNOGL M 100 mg/dL (Normal) Range: 26-217 IMMUNO A 106 mg/dL (Normal) Range: 64-422 IMMUNO G 693 mg/dL (Abnormal) Range: 700-1600 PROTEIN,TOTAL 6.5 g/dL (Normal) Range: 6.0-8.5 95-Kom-749504:42 Iron+Iron Binding Capacity Comments: Order Date: 10/10/16Order Info: 0786-1 - *CMP Complete Metabolic PanelOrder Info: 34829-8 - *IBC Iron \E AND E\ Total Iron Binding CapacityOrder Info: 2276-4 - *FerritinComments: Reason:Order Date: 10/10/16Order Info: 33243-0 - *[place]DA - [place] Lamda Light ChainsComments: Reason:[facility] [address] [place], [place], [address] IRON SATURATION 15.9 % (Normal) Range: 15.0-55.0 IRON 49 ug/dL (Abnormal) Range: 50-170 TIBC 309 ug/dL (Normal) Range: 250-450 78-Ctj-186416:42 [place] Lambda Light Chains Comments: Order Date: 10/10/16Order Info: 0282-1 - *IMEL DEEPALI + Prot Elec, Serum 1495Order Info: 95174-7 - *[place] - [place] Lamda Light ChainsOrder Date: 10/10/16Order Info: 0282-1 - *IMEL DEEPALI + Prot Elec, Serum 1495Order Info: 21469-6 - *[place] - [place] Lamda Light ChainsOrder Date: 10/10/16Order Info: 19839-0 - *[place] - [place] Lamda Light ChainsIs Patient Fasting? NComments: Reason:[facility] (refer to report for specific site)refer to report for address and phone number KAPPA/LAMBDA % 0.98 (Normal) Range: 0.26-1.65 Comments: Performed at: - [facility] [address] [id number] Director: Constantine Christianson PhD, Phone: [phone] FR LAMBDA LT CH 19.06 mg/L (Normal) Range: 5.71-26.30 FR KAPPA LT CHN 18.62 mg/L (Normal) Range: 3.30-19.40 54-Fup-717082:06 VITAMIN B-12 (CYANOCOBALAMIN) Comments: PATIENT NOT FASTINGPERFORMED BY: [facility] Lhhlqn0953 [facility] [id number] (75640) Vitamin B12 709 pg/mL (Normal) Range: 211-946 38-Bfu-393527:45 Blood Glucose , Office (49492) Blood Glucose , Office 104 (Normal) 80-Vzh-971607:45 HgA1C , Office (77055) HgA1C , Office 6.7 % (Normal) Range: 4.6 - 7.1 :54 CBC W/Diff, Automated Comments: [facility] [address] [place], [place], [address] Absolute Lymph 1.51 {X10_3/ul} (Normal) Range: 0.83-4.51 [...] 4.2-5.4 WBC 7.0 K/mm3 (Normal) Range: 4.4-11.0 19-Ciu-37207:54 Comprehensive Metabolic Profil Comments: [facility] [address] [place], [place], [address] GAP 8 (Normal) Range: 5-15 CO2 28.0 [...] A.D.A. criteria. :54 Lipid Profile Comments: [facility] [address] [place], [address] VLDL 38 mg/dL (Normal) Range: 5-40 LDL [...] Risk :54 Microalb:Creat Ratio,Random UR Comments: [facility] [address] [place], [address] MALB:CREAT 223.2 {mg/g_CRE} (Abnormal) MICROALBUMIN,UR 250.0 mg/L (Normal) UR CREAT 112.00 mg/dL (Normal) :54 Thyroid Stim Hormone (TSH) Comments: [facility] [address] [place], [address] TSH 1.13 {uIU/mL} (Normal) Range: 0.358-3.74 :54 Urinalysis, Complete Comments: How was Urine Obtained? CLEAN [facility] [address] [place], [address] MUCUS, URINE 0 SEEN {/hpf} (Normal) [...] (Normal) :54 Vitamin D,25 Hydroxy Comments: [facility] [address] [place], [address] Vitamin D 25-OH 31.6 ng/mL (Normal) Comments: Vitamin D 25(OH) Status Range Deficiency <20 ng/mL (50nmol/L) Insuffciency 20 - 30 ng/mL (50 - 75 nmol/L) Sufficiency 30 - 100 ng/mL (75 - 250 nmol/L) Toxicity >100 ng/mL (>250 nmol/L) 36-Sgb-060081:07 VITAMIN B-12 (CYANOCOBALAMIN) Comments: PATIENT NOT FASTINGPERFORMED BY: [facility]6370 [facility] [id number] (09640) Vitamin B12 1119 pg/mL (Abnormal) Range: 211-946 68-Nej-042764:23 Microscopic Examination Comments: PATIENT WAS FASTINGPERFORMED BY: [place] [address] [facility] [id number] Bacteria Few (Normal) Mucus Threads Present (Normal) Epithelial Cells (non renal) 0-10 {/hpf} (Normal) Range: 0 - 10 RBC 0-2 {/hpf} (Normal) Range: 0 - 2 WBC >30 {/hpf} (Abnormal) Range: 0 - 5 38-Xve-505958:23 VITAMIN B-12 (CYANOCOBALAMIN) Comments: PATIENT WAS FASTINGPERFORMED BY: [facility]6370 [facility] [id number] (91480) Vitamin B12 >2000 pg/mL (Abnormal) Range: 211-946 12-Fux-115496:23 TSH (00779) Comments: PATIENT WAS FASTINGPERFORMED BY: [facility]6370 [facility] [id number] TSH 5.380 {uIU/mL} (Abnormal) Range: 0.450-4.500 12-Sxg-025509:23 URINALYSIS, W/ MICRO (36815) Comments: PATIENT WAS FASTINGPERFORMED BY: [facility]6370 [facility] [id number] Microscopic Examination See below: (Normal) Comments: Microscopic was indicated and was performed. Nitrite, Urine Negative (Normal) Urobilinogen,Semi-Qn 0.2 mg/dL (Normal) Range: 0.2-1.0 Bilirubin Negative (Normal) Occult Blood Negative (Normal) Ketones Negative (Normal) Glucose Negative (Normal) Protein Trace (Normal) WBC Esterase 2+ (Abnormal) Appearance Clear (Normal) Urine-Color Yellow (Normal) pH 6.0 (Normal) Range: 5.0-7.5 Specific [place] 1.022 (Normal) Range: 1.005-1.030 30-Qkf-776853:23 MICROALBUMIN: CREATININE RATIO Comments: PATIENT WAS FASTINGPERFORMED BY: [facility]6370 [facility] [id number] (89222) AND (22890) Microalb/Creat Ratio 24.2 {mg/g_creat} (Normal) Range: 0.0-30.0 Microalbumin, Urine 35.4 ug/mL (Normal) Creatinine, Urine 146.0 mg/dL (Normal) 99-Cth-344641:23 METABOLIC PANEL, COMPREHENSIVE Comments: PATIENT WAS FASTINGPERFORMED BY: [facility]esKqgtdj9952 [facility] [id number] (00316) ALT (SGPT) 25 [iU]/L (Normal) Range: 0-32 [...] Glucose, Serum 143 mg/dL (Abnormal) Range: 65-99 18-Uxd-130470:23 CBC W/AUTO DIFF WBC (99868) Comments: PATIENT WAS FASTINGPERFORMED BY: LabCoVirtua VoorheesHyjcyo5058 [facility] [id number] Immature Grans (Abs) 0.0 {x10E3/uL} (Normal) Range: [...] 3.77-5.28 WBC 7.4 {x10E3/uL} (Normal) Range: 3.4-10.8 75-Qyw-327018:23 CALCIFIDIOL (09051) VIT D 25 Comments: PATIENT WAS FASTINGPERFORMED BY: LabCoVirtua VoorheesWenrxw9208 [facility] [id number] Vitamin D, 25-Hydroxy 28.9 ng/mL (Abnormal) Range: 30.0-100.0 Comments: Vitamin D deficiency has been defined by the [place] of[facility] Centerc[facility] and an Endocrine Society practice guideline as alevel of serum 25-OH vitamin D less than 20 ng/mL (1,2).The Endocrine Society went on to further define vitamin Dinsufficiency as a level between 21 and 29 ng/mL (2).1. IOM ([place] of Medicine). 2010. Dietary reference intakes for calcium and D. [place]: The National Academies Press.2. Rachel MF, Yael NC, Dunia HERRERA, et al. Evaluation, treatment, and prevention of vitamin D deficiency: an Endocrine Society clinical practice guideline. JCEM. 2010; 96(7):1911-30. :22 HgA1C , Office (11982) HgA1C , Office 7.1 % (Normal) Range: 4.6 - 7.1 :22 Blood Glucose , Office (64968) Blood Glucose , Office 171 (Normal) 5-Qai-661069:10 Basic Metabolic Profile (BMP) Comments: Serial Specimen #1, #2 or #3? 1'TROP' Serial specimen #1, #2, #3, or #4: 1[facility] [address] [place], [address] GAP 8 (Normal) Range: 5-15 CO2 28.0 [...] 126 mg/dLsuggests DIABETES MELLITUS per A.D.A. criteria. 7-Jix-188937:10 CBC W/Diff, Automated Comments: [facility] [address] [place], [place], [address] Absolute Lymph 1.32 {X10_3/ul} (Normal) Range: 0.83-4.51 [...] Serial specimen #1, #2, #3, or #4: [address] [place] [address] [address] [place], [address] CKRI 1.3 % (Normal) Range: [...] Serial specimen #1, #2, #3, or #4: [address] [place] [address] [address] [place], [address] TROPONIN-I < 0.02 ng/mL (Normal) Comments: TROPONIN-I EXPECTED VALUES <0.05 NEGATIVE 0.06 - 0.59 AT RISK OF FL > OR = 0.60 SUGGEST FL :55 Blood Glucose , Office (47024) Blood Glucose , Office 117 (Normal) :36 HgA1C , Office (87246) HgA1C , Office 7.1 % (Normal) Range: 4.6 - 7.1 :52 CBC W/Diff, Automated Comments: CBCD WITH WBC PER [facility] [address] [place], [address] Absolute Lymph 1.67 {X10_3/ul} (Normal) [...] 4.4-11.0 30-Nov-20156:52 Comprehensive Metabolic Profil Comments: [facility] [address] [place], [place], [address] GAP 10 (Normal) Range: 5-15 CO2 26.0 [...] per A.D.A. criteria. :52 Immunofixation Urine Comments: [facility] (refer to report for specific site)refer to report for address and phone number DEEPALI Urine Comment (Normal) Comments: Immunofixation shows IgG monoclonal protein with lambdalight chain specificity.Bence Jorge Protein positive; lambda type.Performed at: [place] [address] 12[address] Dire ctor: Constantine Christianson PhD, Phone: [phone] :[phone] Immunofixation, Serum Comments: [facility] (refer to report for specific site)refer to report for address and phone number DEEPALI RESULT,S Comment (Normal) Comments: Immunofixation shows IgG monoclonal protein with lambdalight chain specificity. IMMUNOGL M 112 mg/dL (Normal) Range: 26-217 IMMUNO A 110 mg/dL (Normal) Range: 64-422 IMMUNO G 783 mg/dL (Normal) Range: 700-1600 :52 [place] Lambda Light Chains Comments: [facility] (refer to report for specific site)refer to report for address and phone number KAPPA/LAMBDA % 1.03 (Normal) Range: 0.26-1.65 FR LAMBDA LT CH 21.11 mg/L (Normal) Range: 5.71-26.30 FR KAPPA LT CHN 21.66 mg/L (Abnormal) Range: 3.30-19.40 :52 Lipid Profile Comments: [facility] [address] [place], [address] ; review OV 12/02/15 VLDL 35 mg/dL [...] Risk :52 Microalb:Creat Ratio,Random UR Comments: [facility] [address] [place], [address] MALB:CREAT 44.5 {mg/g_CRE} (Abnormal) MICROALBUMIN,UR 68.1 mg/L (Normal) UR CREAT 153.00 mg/dL (Normal) :52 Vitamin B12 268 pg/mL (Normal) Comments: [facility] [address] [place], [address] Range: 211-911 Comments: ADDENDA: normal and has f/u this saturday:52 Vitamin D,25 Hydroxy Comments: [facility] [address] [place], [address] Vitamin D 25-OH 48.8 ng/mL (Normal) Comments: Vitamin D 25(OH) Status Range Deficiency <20 ng/mL (50nmol/L) Insuffciency 20 - 30 ng/mL (50 - 75 nmol/L) Sufficiency 30 - 100 ng/mL (75 - 250 nmol/L) Toxicity >100 ng/mL (>250 nmol/L) :15 Basic Metabolic Profile (BMP) Comments: [facility] [address] [place], [address] GAP 10 (Normal) Range: 5-15 [...] criteria. :15 CBC W/Diff, Automated Comments: [facility] [address] [place], [address] RED CELL MORPH NORM C+C [...] 4.2-5.4 WBC 11.4 K/mm3 (Abnormal) Range: 4.4-11.0 17-Rmd-545116:08 HgA1C , Office (06987) HgA1C , Office 6.8 % (Normal) Range: 4.6 - 7.1 7-Nso-618064:30 FERRITIN (02706) Comments: PATIENT WAS FASTINGPERFORMED BY: [employer]70 [address] [facility] [id number] Ferritin, Serum 121 ng/mL (Normal) Range: 15-150 9-Soj-293857:30 IRON (26560) Comments: PATIENT WAS FASTINGPERFORMED BY: [employer]70 [employer] [facility] [id number] Iron, Serum 56 ug/dL (Normal) Range: 35-155 [...] - 159 >60 years 27 - 139 2-Nfr-114389:30 TSH (18393) Comments: PATIENT WAS FASTINGPERFORMED BY: LabCoVirtua VoorheesYymwnb8132 [facility] [id number] TSH 1.660 {uIU/mL} (Normal) Range: 0.450-4.500 3-Lfd-021297:30 LIPID PANEL (21268) Comments: PATIENT WAS FASTINGPERFORMED BY: LabCoVirtua VoorheesQxaeib8014 [facility] [id number] LDL/HDL Ratio 2.1 {ratio_units} (Normal) Range: 0.0-3.2 [...] Cholesterol, Total 190 mg/dL (Normal) Range: 100-199 9-Alh-349427:30 METABOLIC PANEL, COMPREHENSIVE Comments: PATIENT WAS FASTINGPERFORMED BY: [facility] Kandra8070 [facility] [id number] (45414) ALT (SGPT) 24 [iU]/L (Normal) Range: 0-32 [...] Glucose, Serum 122 mg/dL (Abnormal) Range: 65-99 2-Mnz-063235:30 Vitamin D Hydroxy (82000) Comments: PATIENT WAS FASTINGPERFORMED BY: [place]scovered [place] [id number] Vitamin D, 25-Hydroxy 25.3 ng/mL (Abnormal) Range: 30.0-100.0 Comments: Vitamin D deficiency has been defined by the [place] ofMedicine and an Endocrine Society practice guideline as alevel of serum 25-OH vitamin D less than 20 ng/mL (1,2).The Endocrine Society went on to further define vitamin Dinsufficiency as a level between 21 and 29 ng/mL (2).1. IOM ([place] of Medicine). 2010. Dietary reference intakes for calcium and D. [place]: The National Academies Press.2. Rachel MF, Yael NC, Dunia HERRERA, et al. Evaluation, treatment, and prevention of vitamin D deficiency: an Endocrine Society clinical practice guideline. JCEM. 2010; 96(7):1911-30. 2-Vrm-582755:30 CBC W/AUTO DIFF WBC Comments: PATIENT WAS FASTINGPERFORMED BY: [facility] [id number] Information: [id number] (63269) Immature Grans (Abs) 0.0 {x10E3/uL} (Normal) Range: [...] 3.77-5.28 WBC 8.2 {x10E3/uL} (Normal) Range: 3.4-10.8 8-Iyh-710199:30 serum free light chains Comments: PATIENT WAS FASTINGPERFORMED BY: LabCoVirtua VoorheesYesocn9038 [facility] [id number] (05226) [place]/Lambda Ratio,S 0.81 (Normal) Range: 0.26-1.65 Free Lambda Lt Chains,S 17.93 mg/L (Normal) Range: 5.71-26.30 Free [place] Lt Chains,S 14.55 mg/L (Normal) Range: 3.30-19.40 3-Roz-958529:08 urine immunofixation (37569) Comments: PATIENT NOT FASTINGPERFORMED BY: LabCoVirtua VoorheesPlzxgc6497 [facility] [id number] Information: SRC:UR [id number] DEEPALI Interpretation:U IFEGL (Normal) Comments: 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 3-Icm-012467:30 serum immunofixation (45195) Comments: PATIENT WAS FASTINGPERFORMED BY: LabCoVirtua VoorheesUwhlfy8984 [facility] [id number] Immunoglobulin M, Qn, Serum 99 mg/dL (Normal) Range: 40-230 Immunoglobulin A, Qn, Serum 107 mg/dL (Normal) Range: 91-414 Immunoglobulin G, Qn, Serum 814 mg/dL (Normal) Range: 700-1600 Immunofixation Result, Serum IFEGL (Normal) Comments: Immunofixation shows IgG monoclonal protein with lambda light chainspecificity. :49 CBC W/Diff, Automated Comments: [facility] [address] [place], [place], [address] Absolute Lymph 0.99 {X10_3/ul} (Normal) Range: 0.83-4.51 [...] (Normal) Range: 4.4-11.0 :49 Ferritin Comments: [facility] [address] [place], [address] FERRITIN 80 ng/mL (Normal) Range: 8-252 :49 Hemoglobin A1c Comments: [facility] [address] [place], [address] HGB A1C 6.4 % (Abnormal) Range: 4.2-6.3 :49 Iron Comments: [facility] [address] [place], [address] IRON 43 ug/dL (Abnormal) Range: 50-170 :49 Iron Binding Capacity,Total Comments: [facility] [address] [place], [address] TIBC 336 ug/dL (Normal) Range: 250-450 :49 Protein Electro.Ur-Random Comments: [facility] (refer to report for specific site)refer to report for address and phone number M-SPIKE,U Test not performed (Normal) GAMMA GLOB,U Test not performed (Normal) Comments: Test not performed BETA GLOB,U Test not performed (Normal) Comments: Test not performed JDCEF-2-YBLP,U Test not performed (Normal) Comments: Test not performed OVUIE-2-DOFE,U Test not performed (Normal) Comments: Test not [...] electrophoresis scan will follow via computer,mail, or seismic observer delivery. NOTE: Comment (Normal) Comments: The SPE [...] electrophoresis scan will follow via computer,mail, or seismic observer delivery. A/G RATIO 1.5 (Normal) Range: 0.7-2.0 [...] :49 Thyroid Stim Hormone (TSH) Comments: [facility] [address] [place], [place], [address] TSH 4.43 {uIU/mL} (Abnormal) Range: 0.358-3.74 :49 Vitamin B12 431 pg/mL (Normal) Comments: [facility] [address] [place], [place], [address] Range: 211-911 Comments: ADDENDA: has apt today :58 AFP, Tumor Marker Comments: Is [facility] ? [facility] (refer to report for specific site)refer to report for address and phone number AFP TUMOR 2253 4.9 ng/mL (Normal) Range: 0.0-8.3 Comments: Patricia ECLIA methodologyPerformed at: - [facility] [address] [id number] Director: Constantine Christianson PhD, Phone: [phone] :58 CBC W/Diff, Automated Comments: [facility] [address] [place], [place], [address] Absolute Lymph 1.46 {X10_3/ul} (Normal) Range: 0.83-4.51 [...] 4.2-5.4 WBC 7.3 K/mm3 (Normal) Range: 4.4-11.0 72-Gda-72732:58 Comprehensive Metabolic Profil Comments: [facility] [address] [place], [address] GAP 7 (Normal) Range: 5-15 [...] A.D.A. criteria. :58 Lipid Profile Comments: [facility] [address] [place], [place], [address] ; non-emergent and has apth this week [...] Vitamin B12 278 pg/mL (Normal) Comments: [facility] Zogpmgnyof0366 [facility] [place], [address] Range: 211-911 :58 Vitamin D,25 Hydroxy Comments: [facility] [address] [place], [address] Vitamin D 25-OH 38.4 ng/mL (Normal) Comments: Vitamin D 25(OH) Status Range Deficiency <20 ng/mL (50nmol/L) Insuffciency 20 - 30 ng/mL (50 - 75 nmol/L) Sufficiency 30 - 100 ng/mL (75 - 250 nmol/L) Toxicity >100 ng/mL (>250 nmol/L) 97-Vzl-977817:07 HgA1C , Office (68443) HgA1C , Office 6.5 % (Normal) Range: 4.6 - 7.1 :43 AFP, Tumor Marker Comments: Is Patient ? NTest performed at:[facility] Ljrwwamaqd1971 [facility] [place] [address] AFP TUMOR 2253 4.8 ng/mL (Normal) Range: 0.0-8.3 Comments: [employer] ECLIA methodologyPerformed at: [facility] [address] [id number] Director: Arnold Jefferson PhD, Phone: [phone] :[phone] CBC W/Diff, Automated Comments: Test performed at:[facility] Bnkuxbpdvn3205 [facility] [place] [address] Absolute Lymph 1.16 {X10_3/ul} (Normal) [...] 4.2-5.4 WBC 5.6 K/mm3 (Normal) Range: 4.4-11.0 12-Yvd-61989:43 Comprehensive Metabolic Profil Comments: Test performed at:[facility] [address] [place] [address] GAP 11 (Normal) Range: 5-15 CO2 24.0 [...] :43 Lipid Profile Comments: Test performed at:[facility] [address] [place] [address] VLDL 61 mg/dL (Abnormal) Range: 5-40 [...] Microalb:Creat Ratio,Random UR Comments: Test performed at:[facility] [address] [place] [address] MALB:CREAT 15.9 {mg/g_CRE} (Normal) MICROALBUMIN,UR 19.2 mg/L (Normal) UR CREAT 120.3 mg/dL (Normal) :43 Thyroid Stim Hormone (TSH) Comments: Test performed at:[facility] [address] [place] [address] TSH 2.19 {uIU/mL} (Normal) Range: 0.358-3.74 :43 Vitamin B12 261 pg/mL (Normal) Comments: Test performed at:[facility] [address] [place] [address] Range: 211-911 Comments: ADDENDA: nl and pt has apt tomorrow :43 Vitamin D,25 Hydroxy Comments: Test performed at:[facility] [address] [place] [address] Vitamin D 25-OH 30.9 ng/mL (Normal) Comments: Vitamin D 25(OH) Status Range Deficiency <20 ng/mL (50nmol/L) Insuffciency 20 - 30 ng/mL (50 - 75 nmol/L) Sufficiency 30 - 100 ng/mL (75 - 250 nmol/L) Toxicity >100 ng/mL (>250 nmol/L) :38 HgA1C , Office (92027) HgA1C , Office 6.7 % (Normal) Range: 4.6 - 7.1 :56 AFP, Tumor Marker Comments: Is Patient ? NTest performed at:[facility] [address] [place] [address] ; appt 02/15 AFP TUMOR 2253 4.8 ng/mL (Normal) Range: 0.0-8.3 Comments: StyleFeeder ECLIA methodologyPerformed at: [facility] [address] [id number] Director: Arnold Jefferson PhD, Phone: [phone] CBC W/Diff, Automated Comments: Test performed at:[facility] [address] [place] [address] Absolute Lymph 2.37 {X10_3/ul} (Normal) Range: [...] :56 Lipid Profile Comments: Test performed at:[facility] [address] [place], [place] [id number] VLDL 26 mg/dL (Normal) Range: 5-40 LDL [...] Partial Thromboplast Time Comments: Test performed at:[facility] [address] [place] [address] PTT 30.1 s (Normal) Range: 24.1-36.2 :56 Prothrombin Time w/INR Comments: Test performed at:[facility] [address] [place] [address] INR 1.0 (Normal) PROTIME 12.8 s (Normal) Range: 11.7-14.9 :56 Thyroid Stim Hormone (TSH) Comments: Test performed at:[facility] [address] [place] [address] TSH 5.17 {uIU/mL} (Abnormal) Range: 0.358-3.74 :56 Vitamin B12 293 pg/mL (Normal) Comments: Test performed at:[facility] [address] [place] [address] Range: 211-911 :56 Vitamin D,25 Hydroxy Comments: Test performed at:[facility] [address] [place] [address] Vitamin D 25-OH 32.0 ng/mL (Normal) Comments: Vitamin D 25(OH) Status Range Deficiency <20 ng/mL (50nmol/L) Insuffciency 20 - 30 ng/mL (50 - 75 nmol/L) Sufficiency 30 - 100 ng/mL (75 - 250 nmol/L) Toxicity >100 ng/mL (>250 nmol/L) :07 HgA1C , Office (41668) HgA1C , Office 6.3 % (Normal) Range: 4.6 - 7.1 :33 CBC W/Diff, Automated Comments: Test performed at:[facility] [address] [place] [address] ; non- emergent till apt Absolute [...] 4.2-5.4 WBC 7.3 K/mm3 (Normal) Range: 4.4-11.0 93-Ipc-00706:33 Comprehensive Metabolic Profil Comments: Test performed at:[facility] [address] [place], [place] [id number] GAP 4 (Abnormal) Range: 5-15 CO2 28.0 [...] :33 Lipid Profile Comments: Test performed at:[facility] [address] [place] [address] VLDL 29 mg/dL (Normal) Range: [...] 394 pg/mL (Normal) Comments: Test performed at:[facility] [address] [facility] [place] [address] Range: 211-911 :33 Vitamin D,25 Hydroxy Comments: Test performed at:[facility] [address] [facility]. [place], [place] [id number] Vitamin D 25-OH 39.6 ng/mL (Normal) Comments: Vitamin D 25(OH) Status Range Deficiency <20 ng/mL (50nmol/L) Insuffciency 20 - 30 ng/mL (50 - 75 nmol/L) Sufficiency 30 - 100 ng/mL (75 - 250 nmol/L) Toxicity >100 ng/mL (>250 nmol/L) :10 HgA1C , Office (69575) HgA1C , Office 6.4 % (Normal) Range: [...] 4.2-5.4 WBC 6.0 K/mm3 (Normal) Range: 4.4-11.0 56-Cvi-62663:42 CMP GAP 5 (Normal) Range: 5-15 CO2 [...] CHOL 167 mg/dL (Normal) Comments: <200 mg/dL Yfjerbcgc601-117 mg/dL Borderline>240 mg/dL High Risk TRIG 200 mg/dL (Abnormal) Range: 0-199 Comments: Serum Triglycerides Reference IntervalNormal <150 mg/dLBorderline high 150 - 199 mg/dLHigh 200 - 499 mg/ dLVery High > or = 500 mg/dL :42 TIBC 275 ug/dL (Normal) Range: 250-450 :42 TSH 2.12 {uIU/mL} (Normal) Range: 0.358-3.74 92-Oud-937042:10 FERRITIN (67875) Comments: PATIENT NOT FASTINGPERFORMED BY: [facility] Aniabz4893 [facility] [id number] Ferritin, Serum 133 ng/mL (Normal) Range: 15-150 14-Oex-011876:10 IRON BINDING CAPACITY Comments: PATIENT NOT FASTINGPERFORMED BY: [facility] Qvieou3209 [facility] [id number] Information: [id number] (TIBC) (42868) Iron Saturation 20 % (Normal) Range: 15-55 Iron, Serum 62 ug/dL (Normal) Range: 35-155 UIBC 241 ug/dL (Normal) Range: 150-375 Iron Bind.Cap.(TIBC) 303 ug/dL (Normal) Range: 250-450 35-Vdu-538886:10 VITAMIN B-12 (CYANOCOBALAMIN) Comments: PATIENT NOT FASTINGPERFORMED BY: LabCoVirtua VoorheesTduqao7258 [facility] [id number] (90927) Vitamin B12 421 pg/mL (Normal) Range: 211-946 :10 TSH (81265) Comments: PATIENT NOT FASTINGPERFORMED BY: [facility] Jrtgoq3379 [facility] [id number] TSH 1.150 {uIU/mL} (Normal) Range: 0.450-4.500 51-Ygd-811348:37 HgA1C , Office (35723) HgA1C , Office 6.1 % (Normal) Range: 4.6 - 7.1 1-Srh-983785:10 CBC with manual diff Comments: PATIENT WAS FASTINGPERFORMED BY: [facility] Yfzvwv3159 [facility] [id number] Information: [id number] (29353) Immature Grans (Abs) 0.0 {x10E3/uL} (Normal) Range: [...] 3.77-5.28 WBC 8.2 {x10E3/uL} (Normal) Range: 3.4-10.8 4-Gkt-309119:10 Metabolic Panel, Comprehensive Comments: PATIENT WAS FASTINGPERFORMED BY: LabCoVirtua VoorheesSstywq9257 [facility] [id number] (99899) ALT (SGPT) 11 [iU]/L (Normal) Range: 0-32 [...] Glucose, Serum 129 mg/dL (Abnormal) Range: 65-99 3-Zxo-247749:10 Lipid Panel (22164) Comments: PATIENT WAS FASTINGPERFORMED BY: LabCoVirtua VoorheesFfdhwd8461 [facility] [id number] LDL/HDL Ratio 1.4 {ratio_units} (Normal) Range: 0.0-3.2 [...] METABOLIC PANEL, Comments: PATIENT NOT FASTINGPERFORMED BY: [facility] Wazafo6495 [facility] [id number] Information: [id number] COMPREHENSIVE (33994) ALT (SGPT) 15 [iU]/L (Normal) Range: 0-32 [...] 133 mg/dL (Abnormal) Range: 65-99 :14 TSH (01520) Comments: PATIENT NOT FASTINGPERFORMED BY: LabCoVirtua VoorheesBpggsc7048 [facility] [id number] TSH 0.182 {uIU/mL} (Abnormal) Range: 0.450-4.500 :40 [...] CHOL 99 mg/dL (Normal) Comments: <200 mg/dL Bpgvgbyxi709-119 mg/dL Borderline>240 mg/dL High Risk :40 MIACRE [...] CHOL 148 mg/dL (Normal) Comments: <200 mg/dL Wpklfzrcz620-542 mg/dL Borderline>240 mg/dL High Risk HDL 46 [...] - 250 nmol/L)Toxicity >100 ng/mL (>250 nmol/L) 41-Oyi-032794:27 HgA1C , Office (12251) HgA1C , Office 6.7 % (Normal) Range: 4.6 - 7.1 :17 METABOLIC PANEL, COMPREHENSIVE Comments: PATIENT WAS FASTINGPERFORMED BY: [facility] Vqzndh9486 [facility] [id number] (83929) ALT (SGPT) 16 [iU]/L (Normal) Range: 0-32 [...] mg/dL (Abnormal) Range: 65-99 :17 LIPID PANEL (93740) Comments: PATIENT WAS FASTINGPERFORMED BY: Native Qxkyml3392 [facility] [id number] LDL/HDL Ratio 2.0 {ratio_units} (Normal) Range: 0.0-3.2 [...] MANUAL DIFF Comments: PATIENT WAS FASTINGPERFORMED BY: [facility]6370 [facility] [id number] Information: [id number] (06149) Immature Grans (Abs) 0.0 {x10E3/uL} (Normal) Range: [...] B-12 (CYANOCOBALAMIN) Comments: PATIENT WAS FASTINGPERFORMED BY: [facility] Bxpzbc6894 [facility] [place] [id number] (08643) Vitamin B12 696 pg/mL (Normal) Range: 211-946 :17 Vitamin D Hydroxy (63311) Comments: PATIENT WAS FASTINGPERFORMED BY: [facility] Yqhecq2783 [address] Road[place]ublin [place] [id number] Vitamin D, 25-Hydroxy 29.3 ng/mL (Abnormal) Range: 30.0-100.0 Comments: Vitamin D deficiency has been defined by the [place] of[facility] Centercine and an Endocrine Society practice guideline as alevel of serum 25-OH vitamin D less than 20 ng/mL (1,2).The Endocrine Society went on to further define vitamin Dinsufficiency as a level between 21 and 29 ng/mL (2).1. IOM ([place] of Medicine). 2010. Dietary reference intakes for calcium and D. [place]: The National Academies Press.2. Rachel MF, Yael NC, Dunia HERRERA, et al. Evaluation, treatment, and prevention of vitamin D deficiency: an Endocrine Society clinical practice guideline. JCEM. 2010; 96(7):1911-30. :29 HgA1C , Office (09240) HgA1C , Office 7.0 % (Normal) Range: 4.6 - 7.1 :14 B12 794 pg/mL (Normal) Range: 211-911 Comments: Effective 2012:14 VITD 37.5 ng/mL (Normal) Comments: Vitamin D 25(OH) Status RangeDeficiency <20 ng/mL (50nmol/L)Insufficiency 20 - 30 ng/mL (50 - 75 nmol/L)Sufficiency 30 - 100 ng/mL (75 - 250 nm ol/L)Toxicity >100 ng/mL (250 nmol/L)Effective 201201-Dec-20127-Lok-907250:13 CHEST PA AND LATERAL Radiology Report See [...] Tate D.O.December 01, 2012 at 12:40:54 PM [id number] Signed DS/DS If you are the referring physician and would like to consult with theradiologist who provided this i nterpretation, please contact Eulalio Tate D.O. at [phone]. If this radiologist is unavailable, you will bedirected to another radiologist to assist. If you are a patient with a question regarding t his report, pleasecontactyour referring physician directly. Professional Interpretation Provided By: [employer]ir[employer], Phone , These documents contain legally protected [...] 12/01/12 1244 Sign by: Mack Peterson DO 14-Nmd-586805:20 Upper Respiratory Culture Comments: PATIENT NOT FASTINGPERFORMED BY: LabCoVirtua VoorheesDvlrsa4658 [address] [place] [id number] Information: SRC: THROAT Result 1 RRF (Normal) Comments: Routine respiratory alton Upper Respiratory Culture Final report (Normal) 23-Zet-579262:06 Rapid Strep Test, Office (83478) Rapid Strep Test, Office Negative (Normal) 13-Jyg-466742:32 BILAT SCRN DIGITAL & CAD Radiology Report [...] Wayne M.D.November 18, 2012 at 12:51:57 PM [id number] Signed GP/GP If you are the referring physician and would like to consult with theradiologist who provid ed this interpretation, please contact Lee Claudio at [phone]. If this radiologist is unavailable, youwill be directed to another radiologist to assist. If you are a patient with a ques tion regarding this report, pleasecontactyour referring physician directly. Professional Interpretation Provided By: [employer], Phone , These documents contain legally pr [...] 11/18/12 1254 Sign by: Teo Wayne MD 3-Rhw-444577:24 URINE RANI CULTURE-IDENTIFICATN Comments: PATIENT NOT FASTINGPERFORMED BY: cFaresPresbyterian Española HospitalSrglue5498 [facility] [id number] Information: [id number] (58623) Result 1 MUG (Normal) Comments: Mixed urogenital flora10,000-25,000 colony forming units per mL Urine Final report (Normal) Culture,Comprehensive 07-Qie-807784:50 METABOLIC PANEL, Comments: PATIENT NOT FASTINGPERFORMED BY: [facility] Diasif8909 [facility] [id number] Information: ADD [id number] AND DRAW FEE 99 7423 COMPREHENSIVE (18130) ALT (SGPT) 14 [iU]/L (Normal) Range: 0-32 [...] Glucose, Serum 109 mg/dL (Abnormal) Range: 65-99 6-Qxs-487509:42 HgA1C , Office (18338) HgA1C , Office 6.3 % (Normal) Range: 4.6 - 7.1 :04 Microscopic Examination Comments: PATIENT NOT FASTINGPERFORMED BY: dscovered [place] [id number] Bacteria Few (Normal) Mucus Threads Present (Normal) Cast Type Hyaline casts (Normal) Casts Present {/lpf} (Abnormal) Epithelial Cells (non renal) 0-10 {/hpf} (Normal) Range: 0 - 10 RBC 0-3 {/hpf} (Normal) Range: 0 - 3 WBC 6-10 {/hpf} (Abnormal) Range: 0 - 5 :04 VITAMIN B-12 (CYANOCOBALAMIN) Comments: PATIENT NOT FASTINGPERFORMED BY: [employer] [place] [id number] (66925) Vitamin B12 1228 pg/mL (Abnormal) Range: 211-946 :04 Vitamin D Hydroxy (31651) Comments: PATIENT NOT FASTINGPERFORMED BY: dscovered [place] [id number] Vitamin D, 25-Hydroxy 21.9 ng/mL (Abnormal) Range: 30.0-100.0 Comments: Vitamin D deficiency has been defined by the [place] of[place]icine and an Endocrine Society practice guideline as alevel of serum 25-OH vitamin D less than 20 ng/mL (1,2).The Endocrine Society went on to further define vitamin Dinsufficiency as a level between 21 and 29 ng/mL (2).1. IOM ([place] of Medicine). 2010. Dietary reference intakes for calcium and D. [place]: The National Academies Press.2. Rachel MF, Yael MARLEY, Dunia HERRERA, et al. Evaluation, treatment, and prevention of vitamin D deficiency: an Endocrine Society clinical practice guideline. JCEM. 2010; 96(7):1911-30. :04 URINALYSIS, W/ MICRO (65942) Comments: PATIENT NOT FASTINGPERFORMED BY: [employer]70 [facility] [id number] Microscopic Examination See below: (Normal) Nitrite, Urine Negative (Normal) Bilirubin Negative (Normal) Urobilinogen,Semi-Qn 0.2 mg/dL (Normal) Range: 0.0-1.9 Occult Blood Negative (Normal) Ketones Negative (Normal) Glucose Negative (Normal) Protein Negative (Normal) WBC Esterase 1+ (Abnormal) Appearance Clear (Normal) Urine-Color Yellow (Normal) pH 5.5 (Normal) Range: 5.0-7.5 Specific [place] 1.024 (Normal) Range: 1.005-1.030 :04 CBC WITH MANUAL DIFF Comments: PATIENT NOT FASTINGPERFORMED BY: [facility] Lab[facility]uxio Ijzrbl8211 [facility] [id number] Information: [id number] (83914) Immature Grans (Abs) 0.0 {x10E3/uL} (Normal) Range: [...] 3.77-5.28 WBC 7.2 {x10E3/uL} (Normal) Range: 4.0-10.5 57-Pfs-39137:04 METABOLIC PANEL, COMPREHENSIVE Comments: PATIENT NOT FASTINGPERFORMED BY: LabCoVirtua VoorheesVlttfm4707 [facility] [id number] (69349) ALT (SGPT) 13 [iU]/L (Normal) Range: 0-32 [...] mg/dL (Abnormal) Range: 65-99 :04 LIPID PANEL (59838) Comments: PATIENT NOT FASTINGPERFORMED BY: Native [address] [id number] LDL Cholesterol Calc 103 mg/dL (Abnormal) Range: [...] pg/mL (Normal) Range: 211-946 Comments: Performed at: [facility]CoWardrobe House[facility] [address] [id number] Director: Arnold Jefferson PhD, Phone: [phone] :[phone] CMP GAP 9 (Normal) Range: 5-15 [...] 250 nmol/L) Toxicity >100 ng/mL (250 nmol/L)Effective 201215-Aug-201246-Spr-351259:20 Metabolic Panel, Basic Comments: PATIENT NOT FASTINGPERFORMED BY: SHIMAUMA Print SystemBeaumont Hospital6370 [facility] [id number] Information: [id number] (26644) Calcium, Serum 10.2 mg/dL (Normal) Range: 8.6-10.2 [...] Glucose, Serum 99 mg/dL (Normal) Range: 65-99 1-Nvh-285562:24 Microscopic Examination Comments: PATIENT NOT FASTINGPERFORMED BY: SHIMAUMA Print SystemBeaumont Hospital6370 [facility] [id number] Bacteria Few (Normal) Mucus Threads Present (Normal) Epithelial Cells (non renal) 0-10 {/hpf} (Normal) Range: 0 - 10 RBC 0-3 {/hpf} (Normal) Range: 0 - 3 WBC 6-10 {/hpf} (Abnormal) Range: 0 - 5 6-Jld-861971:24 Vitamin D Hydroxy (77030) Comments: PATIENT NOT FASTINGPERFORMED BY: SHIMAUMA Print SystemBeaumont Hospital6370 [facility] [id number] Vitamin D, 25-Hydroxy 21.7 ng/mL (Abnormal) Range: 30.0-100.0 Comments: Vitamin D deficiency has been defined by the [place] ofMedicine and an Endocrine Society practice guideline as alevel of serum 25-OH vitamin D less than 20 ng/mL (1,2).The Endocrine Society went on to further define vitamin Dinsufficiency as a level between 21 and 29 ng/mL (2).1. IOM ([place] of Medicine). 2010. Dietary reference intakes for calcium and D. [place]: The National Academies Press.2. Rachel MF, Yael MARLEY, Dunia HERRERA, et al. Evaluation, treatment, and prevention of vitamin D deficiency: an Endocrine Society clinical practice guideline. JCEM. 2010; 96(7):1911-30. 9-Ucr-232434:24 VITAMIN B-12 (CYANOCOBALAMIN) Comments: PATIENT NOT FASTINGPERFORMED BY: [employer]70 K[facility] TechnologiesThe [facility] [id number] (22862) Vitamin B12 431 pg/mL (Normal) Range: 211-946 :24 URINALYSIS, W/ MICRO (37761) Comments: PATIENT NOT FASTINGPERFORMED BY: [employer]70 Klik TechnologiesThe [facility] [id number] Microscopic Examination MICRON (Normal) Comments: Microscopic follows if indicated. Microscopic Examination See below: (Normal) Nitrite, Urine Negative (Normal) Urobilinogen,Semi-Qn 0.2 mg/dL (Normal) Range: 0.0-1.9 Bilirubin Negative (Normal) Ketones Negative (Normal) Occult Blood Negative (Normal) Glucose Negative (Normal) Protein Negative (Normal) WBC Esterase Negative (Normal) Appearance Clear (Normal) pH 6.5 (Normal) Range: 5.0-7.5 Urine-Color Yellow (Normal) Specific [place] 1.022 (Normal) Range: 1.005-1.030 :24 CBC WITH MANUAL DIFF Comments: PATIENT NOT FASTINGPERFORMED BY: [employer]6370 Klik TechnologiesThe [facility] Hospital [id number] Information: [id number] (09633) Immature Grans (Abs) 0.0 {x10E3/uL} (Normal) Range: [...] 3.77-5.28 WBC 7.9 {x10E3/uL} (Normal) Range: 4.0-10.5 0-Bfs-995466:24 METABOLIC PANEL, COMPREHENSIVE Comments: PATIENT NOT FASTINGPERFORMED BY: LabCoVirtua VoorheesWmczkd5980 [facility] [id number] (50450) ALT (SGPT) 16 [iU]/L (Normal) Range: 0-32 [...] Glucose, Serum 107 mg/dL (Abnormal) Range: 65-99 6-Byi-284512:24 TSH (56367) Comments: PATIENT NOT FASTINGPERFORMED BY: cFaresPresbyterian Española HospitalErgwme2925 [facility] [id number] TSH 2.000 {uIU/mL} Range: 0.450-4.500 (Normal) CCP Antibodies IgG/IgA 1 {units} (Normal) Comments: PATIENT NOT FASTINGPERFORMED BY: cFaresDerek [place] 4330370 [facility] [id number] BY: [employer] [id number] :39 Range: 0-19 Comments: Negative <20 Weak positive 20 - 39 Moderate positive 40 - 59 Strong positive >59 9-Mkf-170844:39 Systemic Lupus Profile Comments: PATIENT NOT FASTINGPERFORMED BY: cFaresDerek [place] 4330370 [facility] [id number] BY: [employer] [id number] Information: [id number] (34701) Anti-DNA (DS) Ab Qn <1 {IU/mL} (Normal) Range: 0-9 Comments: Negative <5 Equivocal 5 - 9 Positive >9 Sjogren's Anti-SS-B 0.5 {AI} (Normal) Range: 0.0-0.9 Sjogren's Anti-SS-A 0.3 {AI} (Normal) Range: 0.0-0.9 Antichromatin Antibodies <0.2 {AI} (Normal) Range: 0.0-0.9 RA Latex Turbid. 8.5 {IU/mL} (Normal) Range: 0.0-13.9 [place] Antibodies <0.2 {AI} (Normal) Range: 0.0-0.9 TECHNICAL PHOTOGRAPHER Antibodies <0.2 {AI} (Normal) Range: 0.0-0.9 :27 HgA1C , Office (48945) HgA1C , Office 6.2 % (Normal) Range: 4.6 - 7.1 :27 Blood Glucose , Office (02548) Blood Glucose , Office 108 (Normal) :45 [...] D deficiency has been defined by the [place] ofMedicine and an Endocrine Society practice guideline as alevel of serum 25-OH vitamin D less than 20 ng/mL (1,2).The Endocrine Society went on to further define vitamin Dinsufficiency as a level between 21 and 29 ng/mL (2).1. IOM ([place] of Medicine). 2010. Dietary reference intakes for calcium and D. [place]: The National Academies Press.2. Rachel MF, Yael NC, Dunia HERRERA, et al. Evaluation, treatment, and prevention of vitamin D deficiency: an Endocrine Society clinical practice guideline. JCEM. 2010; 96(7): 1911-30.Performed at: [address] [id number] Director: Arnold Jefferson PhD, Phone: [phone] 05-Xmq-871667:59 Blood Glucose , Office (62876) Blood Glucose , Office 131 (Normal) :58 HgA1C , Office (35515) HgA1C , Office 6.8 % (Normal) Range: [...] mg/dL suggests DIABETES MELLITUS per A.D.A. criteria. 61-Krc-751895:12 LIPID LDL 104 mg/dL (Normal) Range: 0-130 [...] D deficiency has been defined by the [place] ofMedicine and an Endocrine Society practice guideline as alevel of serum 25-OH vitamin D less than 20 ng/mL (1,2).The Endocrine Society went on to further define vitamin Dinsufficiency as a level between 21 and 29 ng/mL (2).1. IOM ([place] of Medicine). 2010. Dietary reference intakes for calcium and D. [place]: The National Academies Press.2. Rachel MF, Yael MARLEY, Dunia HERRERA, et al. Evaluation, treatment, and prevention of vitamin D deficiency: an Endocrine Society clinical practice guideline. JCEM. 2010; 96(7): 1911-30.Performed at: [address] [id number] Director: Tona Emmanuel MD, Phone: [phone] 17-Gcl-605400:15 HgA1C , Office (09391) HgA1C , Office 5.8 % (Normal) Range: 4.6 - 7.1 76-Abn-443792:15 Blood Glucose , Office (44383) Blood Glucose , Office 113 (Normal) :30 [...] D deficiency has been defined by the [place] ofMedicine and an Endocrine Society practice guideline as alevel of serum 25-OH vitamin D less than 20 ng/mL (1,2).The Endocrine Society went on to further define vitamin Dinsufficiency as a level between 21 and 29 ng/mL (2).1. IOM ([place] of [place]). 2010. Dietary reference intakes for calcium and D. [place]: The National Academies Press.2. Rachel MF, Yael NC, Dunia HERRERA, et al. Evaluation, treatment, and prevention of vitamin D deficiency: an Endocrine Society clinical practice guideline. JCEM. 2010; 96(7): 1911-30.Performed at: [address] [id number] Director: Tona Emmanuel MD, Phone: [phone] 51-Dzp-288799:02 CTA NECK W/WO CONTRAST Radiology Report See [...] ologist regarding this report, please call our 69R8olrnnzi line @ Dictated on 10/08/11 [address]ER,Loraribed on 10/09/11 0856 by ITS IMPORTSign by Juana Wayne MD on 10/09/11 0857 Sign by: Teo Wayne MD 54-Giq-282862:00 BILAT SCRN DIGITAL & CAD Radiology Report [...] radiologist regarding this report, please call our [id number] line @ Dictated on 09/18/11 1040 by Ori clifton MD,Deweybed on 09/20/11 0901 by ITS IMPORTSign by Teo Wayne MD on 09/20/11 0902 Sign by: Hema STREETER,Teo 72-Quj-57952:59 DEXA BONE DENSITY STUDY (HP) Radiology Report [...] regarding this re port, please call our 80C9yldpkev line @ Dictated on 09/18/11 [address]ER,Davidranscribed on 09/19/11 1416 by ITS IMPORTSign by Teo Wayne MD on 09/19/11 141 Sign by: Teo Wayne MD 76-Bwj-647248:17 HgA1C , Office (46657) HgA1C , Office 5.9 % (Normal) Range: 4.6 - 7.1 69-Bdf-280139:17 Blood Glucose , Office (63972) Blood Glucose , Office 77 (Normal) :44 [...] >240 mg/dL High Risk :44 VIT D,25 71686 22.3 ng/mL (Abnormal) Range: 30.0-100.0 Comments: Vitamin D deficiency has been defined by the [place] of[place]icine and an Endocrine Society practice guideline as alevel of serum 25-OH vitamin D less than 20 ng/mL (1,2).The Endocrine Society went on to further define vitamin Dinsufficiency as a level between 21 and 29 ng/mL (2).1. IOM ([place] of Medicine). 2011. Dietary reference intakes for calcium and D. [place]: The National Academies Press.2. Rachel MF, Yael MARLEY, Dunia HERRERA, et al. Evaluation, treatment, and prevention of vitamin D deficiency: an Endocrine Society clinical practice guideline. JCEM. 2010; 96(7): 1911-30.Performed at: - [facility] [address] [id number] Director: Tona Emmanuel MD, Phone: [phone] :[phone] HgA1C , Office (94584) HgA1C , Office 6.6 % (Normal) Range: 4.6 - 7.1 :34 Blood Glucose , Office (52418) Blood Glucose , Office 116 (Normal) :50 [...] Range: 4.4-11.0 :50 COMP METABOLIC Comments: appt 40448 GAP 10 (Normal) Range: 5-15 CO2 26.0 [...] {uIU/mL} (Normal) Range: 0.358-3.74 :50 VIT D,25 96327 41.3 ng/mL (Normal) Range: 32.0-100.0 Comments: Effective June 18, 2011 Vitamin D, 25-Hydroxy reference intervals will be changing to 30-100. .Recent studies consider the lower li lalo of 32.0 ng/mL to be athreshold for optimal health.Pepito ANNE. J Nutr. 2004;135(2):317-22.Performed at: [facility] [employer] [id number] Director: Tona Emmanuel MD, Phone: [phone] :[phone] VITAMIN B12 806 pg/mL (Normal) Range: 254-1320 Comments: There is a low frequency possibility that high titers ofintrinsic blocking antibodies may not be completely inactivated during the reaction pretreatment stepof this testing method. If test results are i n conflictwith the clinical diagnosis, patient should be testedfor the presence of intrinsic factor blocking antibodies. 9-Koi-583770:09 Comp. Metabolic Panel (14) Comments: PATIENT WAS FASTINGPERFORMED BY: SHIMAUMA Print SystemCo[address] [id number] ALT (SGPT) 40 [iU]/L (Normal) Range: 0-40 [...] With LDL/HDL Comments: PATIENT WAS FASTINGPERFORMED BY: [facility]uataThe [facility] [id number] Ratio LDL Cholesterol Calc 74 mg/dL (Normal) [...] 0.192 {uIU/mL} Comments: PATIENT WAS FASTINGPERFORMED BY: [facility] [id number] 09 (Abnormal) Range: 0.450-4.500 : Vitamin B12 417 pg/mL (Normal) Comments: PATIENT WAS FASTINGPERFORMED BY: [facility] [id number] 09 Range: 211-946 38-Uld-417964:22 UNILAT LT DIAG DIGITAL & CAD Radiology [...] 02/23/11 151 Sign by: Teo Wayne MD 42-Ygc-84151:58 CBCD,SMEAR DIFF Comments: appt 10/24/10 RED CELL [...] {uIU/mL} (Abnormal) Range: 0.358-3.74 :58 VIT D,25 82432 22.0 ng/mL (Abnormal) Comments: appt 10/24/10 Range: 32.0-100.0 Comments: Recent studies consider the lower limit of 32.0 ng/mL to tammy threshold for optimal health.Pepito ANNE. J Nutr. 2004;135(2):317-22.Performed at: [facility] [place] [address]Lab Director: Tona Emmanuel MD, Phone: [phone] :[phone] VITAMIN B12 285 pg/mL (Normal) Range: [...] Thin Prep VialPATIENT NOT FASTINGPERFORMED BY: [facility] [address] [id number] Information: [id number] ([id number]) Note: PAPSMR (Normal) Comments: The Pap smear [...] for malignant neoplasm of the cervixConner Montes, Long Winder Tender (ASCP) 81-Zcx-134453:26 BREAST UNILATERAL Radiology Report See Note (Normal) [...] on 08/28/10 1453 Sign by: ANTHONY PALOMARES 91-Lio-032754:58 UNILAT LT DIAG DIGITAL & CAD Radiology [...] Category 3: Probably Benign Finding - Initial Qywah-FztotnhsQmtzrp-ed Suggested. A letter regarding these results will be sent tothepatient by the facility within 30 days. Approximately 10% of breast cancers are not detected by mammography. Anormal mammogram should not delay biopsy of a clinically suspiciousabnormality. Dictated on 08/24/10 1206 by ANTHONY PALOMARESTranscribed on 08/24/10 135 by ITS IMPORTSign by ANTHONY PALOMARES on 08/24/10 135 Sign by: ANTHONY PALOMARES 88-Pqa-15761:43 BILAT SCRN DIGITAL & CAD Radiology Report [...] on 08/18/101451 Sign by: ANTHONY PALOMARES MD 4-Opf-264678:14 HgA1C , Office (54214) HgA1C , Office 6.5 % (Normal) Range: 4.6 - 7.1 6-Ylp-252207:14 Blood Glucose , Office (57838) Blood Glucose , Office 176 (Normal) :30 [...] CREAT 161.2 mg/dL (Normal) : VIT D,25 50068 27.7 ng/mL Range: 32.0-100.0 30 (Abnormal) Comments: Recent studies consider the lower limit of 32.0 ng/mL to tammy threshold for optimal health.Pepito ANNE. J Nutr. 2004;135(2):317- 22.Performed at: - [facility] [id number]Lab Director: Tona Emmanuel MD, Phone: [phone] : VITAMIN B12 449 pg/mL (Normal) Range: [...] {units} (Normal) Comments: PATIENT NOT FASTINGPERFORMED BY: [employer] Cdhzzo3883 [facility] [id number] BY: [address] [id number] 0:44 Range: 0-19 Comments: Negative <20 Weak positive 20 - 39 Moderate positive 40 - 59 Strong positive >59 Comment: SPRCS (Normal) Comments: PATIENT NOT FASTINGPERFORMED BY: [employer] Wacai [facility] [id number] BY: [address] [id number] 0:44 Comments: Effective April 25, 2009 order code 568789 CCP IgGAntibodies has been replaced due to an updated reagentversion 3.1. For this reason [facility] has provided youwith a new order code 835192 CCP Antibodies IgG/IgA. 00-Itc-986513:44 Vitamin D Hydroxy Comments: PATIENT NOT FASTINGPERFORMED BY: [employer] Gjhmpl0072 [facility] [id number] BY: [address] [id number] (94909) Vitamin D, 25-Hydroxy 30.9 ng/mL (Abnormal) Range: 32.0-100.0 Comments: Recent studies consider the lower limit of 32.0 ng/mL to be athreshold for optimal health.Pepito ANNE. J Nutr. 2004;135(2):317-22. 17-Mmo-231803:44 SED RATE ERYTHROCYTE Comments: PATIENT NOT FASTINGPERFORMED BY: [facility] Print SystemJennifer [place] [id number] [facility] [id number] BY: [address] [id number] (76301) Sedimentation Rate-Westergren 4 mm/h (Normal) Range: 0-30 38-Diu-180545:44 C-REACTIVE PROTEIN Comments: PATIENT NOT FASTINGPERFORMED BY: [place] [id number] [facility] [id number] BY: [address] [id number] (58683) C-Reactive Protein, Quant 2.5 mg/L (Normal) Range: 0.0-4.9 99-Gmf-293737:44 TSH (41235) Comments: PATIENT NOT FASTINGPERFORMED BY: [address] [id number] BY: [address] [id number] TSH 2.050 {uIU/mL} (Normal) Range: 0.450-4.500 53-Xsa-901523:44 RHEUMATOID FACTOR-QUANT Comments: PATIENT NOT FASTINGPERFORMED BY: [place] [id number] [facility] [id number] BY: [address] [id number] (59572) RA Latex Turbid. 8.4 {IU/mL} (Normal) Range: 0.0-13.9 16-Ytg-341409:44 MELI (ANTINUCLEAR ANTIBODY) Comments: PATIENT NOT FASTINGPERFORMED BY: [facility]6370 [facility] [id number] BY: [address] [id number] (99970) MELI Direct Negative (Normal) 86-Qjv-151128:44 CBC WITH MANUAL DIFF Comments: PATIENT NOT FASTINGPERFORMED BY: [place] [id number] [facility] [id number] BY: [address] [id number] Inf ormation: ADD [id number] AND DRAW FEE 99 3240 (12785) Immature Grans (Abs) 0.0 {x10E3/uL} (Normal) Range: [...] 3.80-5.10 WBC 6.8 {x10E3/uL} (Normal) Range: 4.0-10.5 29-Odk-241800:44 METABOLIC PANEL, Comments: PATIENT NOT FASTINGPERFORMED BY: CB [facility] Alnyvx5864 [facility] [id number] BY: BN [facility] [address] [id number] [facility] (91271) ALT (SGPT) 21 [iU]/L (Normal) Range: 0-40 [...] (Abnormal) Range: 65-99 :33 HgA1C , Office (55779) HgA1C , Office 6.8 % (Normal) Range: 4.6 - 7.1 :33 Blood Glucose , Office (09096) Blood Glucose , Office 135 (Normal) :22 [...] CHOL 157 mg/dL (Normal) Comments: <200 mg/dL Byzujvrev869-987 mg/dL Borderline>240 mg/dL High Risk :22 LIVER ALB 3.5 g/dL (Normal) Range: 3.4-5.0 ALK P 97 U/L (Normal) Range: 50-136 ALT 21 U/L (Normal) Range: 12-78 AST 16 U/L (Normal) Range: 15-37 D BILI 0.12 mg/dL (Normal) Range: 0.00-0.30 T BILI 0.40 mg/dL (Normal) Range: 0.00-1.00 T PROT 6.5 g/dL (Normal) Range: 6.4-8.2 :22 TSH 1.54 {uIU/mL} Range: 0.358-3.74 (Normal) :22 VIT D,25 05468 36.8 ng/mL (Normal) Range: 32.0-100.0 Comments: Recent studies consider the lower limit of 32.0 ng/mL to tammy threshold for optimal health.Pepito ANNE. J Nutr. 2004;135(2):317-22.Performed at: [facility] [address] 296Lab Director: Tona Emmanuel MD, Phone: [phone] :[phone] VITAMIN B12 264 pg/mL (Normal) Range: 254-1320 Comments: There is a low frequency possibility that high titers ofintrinsic blocking antibodies may not be completelyinactivated during the reaction pretreatment stepof this testing method. If test results are in conflictwith the clinical diagnosis, patient should be testedfor the presence of intrinsic factor blocking antibodies. : Amylase, Serum 92 U/L (Normal) Comments: PERFORMED BY: [facility] [id number] Range: 31-124 97-Wsh-644580:34 CBC With Differential/Platelet Comments: PERFORMED BY: [facility]CoVirt[facility] VoorheesWpdpvn1169 [facility] [id number] Baso (Absolute) 0.0 {x10E3/uL} (Normal) Range: 0.0-0.2 [...] 3.80-5.10 WBC 7.5 {x10E3/uL} (Normal) Range: 4.0-10.5 29-Wuc-429926:34 Comp. Metabolic Panel (14) Comments: PERFORMED BY: [facility]CoVirtua VoorheesNmenev9282 [facility] [id number] ALT (SGPT) 18 [iU]/L (Normal) Range: 0-40 [...] Serum 57 U/L (Normal) Comments: PERFORMED BY: [facility] Keoxek5746 [facility] [id number] 13:34 Range: 0-59 03-Feb-20109:00 GALLBLADDER Radiology Report See Note (Normal) Comments: Exam Number: [id number] CLINICAL:Epigastric pain and bloating. ABDOMINAL ULTRASOUND TECHNIQUE:Transabdominal [...] hydronephrosis,etiology indeterminate. Reported By: KATHRYN MUNOZ M.D. 5-Aps-386562:19 CBC WITH MANUAL DIFF Comments: PATIENT NOT FASTINGPERFORMED BY: CORTEZ [facility] Lbyees7492 [facility] [id number] Information: [id number] (07425) Baso (Absolute) 0.1 {x10E3/uL} (Normal) Range: 0.0-0.2 [...] 3.80-5.10 WBC 9.9 {x10E3/uL} (Normal) Range: 4.0-10.5 4-Axm-245856:19 METABOLIC PANEL, COMPREHENSIVE Comments: PATIENT NOT FASTINGPERFORMED BY: [facility]CoVirt[facility] VoorheesZpcgql3019 [facility] [id number] (64745) ALT (SGPT) 19 [iU]/L (Normal) Range: 0-40 [...] Report See Note (Normal) Comments: Exam Number: [id number] CLINICAL:This is a 69-year-old female patient with [...] as discussed above. Reported By: TEO WAYNE 2-Xnl-775652:12 HgA1C , Office (94802) HgA1C , Office 7.1 % (Normal) Range: 4.6 - 7.1 8-Okl-233819:12 Blood Glucose , Office (04480) Blood Glucose , Office 129 (Normal) 29-Dec-20099:45 [...] CHOL 155 mg/dL (Normal) Comments: <200 mg/dL Rocrhihcj069-909 mg/dL Borderline>240 mg/dL High Risk :45 VIT D,25 63841 42.5 ng/mL (Normal) Range: 32.0-100.0 Comments: Recent studies consider the lower limit of 32.0 ng/mL to tammy threshold for optimal health.Pepito ANNE. J Nutr. 2004;135(2):317-22.Performed at: - [facility] [id number] Director: Tona Emmanuel MD :53 LIPID HDL [...] CHOL 128 mg/dL (Normal) Comments: <200 mg/dL Wbjljmyoz198-432 mg/dL Borderline>240 mg/dL High Risk :53 MICROALB:CRE UR MALB:CREAT 19.1 {mg/g_CRE} (Normal) MICROALBUMIN,UR 29.1 mg/L (Normal) UR CREAT 152.0 mg/dL (Normal) :53 TSH 0.93 {uIU/mL} (Normal) Range: 0.358-3.74 :53 VIT D,25 88833 22.7 ng/mL (Abnormal) Range: 32.0-100.0 Comments: Recent studies consider the lower limit of 32.0 ng/mL to tammy threshold for optimal health.Pepito ANNE. J Nutr. 2004;135(2):317-22.Performed At: [facility] [place], [place] [id number] :53 VITAMIN B12 337 pg/mL (Normal) Range: 254-1320 :09 HgA1C , Office (41367) HgA1C , Office 7.1 % (Normal) Range: 4.6 - 7.1 :09 Blood Glucose , Office (86357) Blood Glucose , Office 108 (Normal) 8-Hiq-482189:33 KNEE,4 OR MORE VIEWS (MT) Radiology Report See Note (Normal) Comments: Exam Number: [id number] CLINICAL:Pain X-RAY EXAMINATION RIGHT KNEE TECHNIQUE:Three view(s) [...] Report See Note (Normal) Comments: Exam Number: [id number] CLINICAL:Pain X-RAY EXAMINATION: RIGHT TIBIA AND FIBULA [...] (MT) Radiology See Note Comments: Exam Number: [id number] CLINICAL:Pain X-RAY EXAMINATION: RIGHT FEMUR TECHNIQUE:Two views [...] Visualized femur. Reported By: RAYMOND ARRIAGA M.D. 1-Wol-385994:43 UNILAT LT DIAG DIGITAL & CAD Radiology Report See Note (Normal) Comments: Exam Number: [id number] MAMMOGRAM, UNILATERAL LEFT DIAGNOSTIC DIGITAL AND CAD HISTORYAbnormal mammogram, left breast. TECHNIQUEFull field digital images were obtained in left true lateral, rolledcranio caudal, and spot mediolateral oblique and craniocaudalprojections. CAD images were reviewed. The current study is compared to the examinations of March 12, 2006,and June 21, 2009. FINDINGSThere is a yafcztda-hw-gfrlva extent of fibroglandular parenchymapresent. There is no [...] wereal so examined with computer-aided detection software ([employer], [employer] Reported By: ANTHONY PALOMARES M.D. 53-Bkg-094832:04 BILAT SCRN DIGITAL & CAD Radiology Report See Note (Normal) Comments: Exam Number: [id number] MAMMOGRAM, BILATERAL SCREENING DIGITAL AND CAD HISTORYRoutine [...] werealso examined with computer- aided detection software ([employer] [facility].). Reported By: ANTHONY PALOMARES M.D. 95-Gtn-188277:03 DEXA BONE DENSITY STUDY () Radiology Report See Note (Normal) Comments: Exam Number: [id number] BONE DENSITOMETRY HISTORYOsteopenia. TECHNIQUE Bone densitometry of the lumbar spine and both hips is now beingperformed. The best criteria for evaluation of osteoporosis is theT-value, which represents the comparison of the patient's bone mass flako expected peak bone mass. For most patients, the mean T-value of A2nxiuajn L4 is used to evaluate the lumbar spine. To evalua te the hip,the lower T-value of the femoral neck or total hip is used. FINDINGSIn this patient, the mean T-value of L1 through L4 is 0.3 which isnormal. Bone mineral density is measured at 18.3% greate r than cj1895.Digital lateral view for evaluation of vertebral deformity [...] within normallimits. Reported By: ANTHONY PALOMARES M.D. 43-Nhc-740764:09 BRAIN/HEAD W/WO CONTRAST Radiology Report See Note (Normal) Comments: Exam Number: [id number] CLINICAL:69 year old female with altered mental [...] CREAT 123.4 mg/dL (Normal) 07-Jun-2009 VIT D,25 08801 19.7 ng/mL Range: 32.0-100.0 9:02 (Abnormal) Comments: Recent studies consider the lower limit of 32.0 ng/mL to tammy threshold for optimal health.Pepito ANNE. J Nutr. 2004;135(2):317- 22.Performed At: [facility] [place], [place] [id number] 07-Jun-2009 VITAMIN B12 328 pg/mL (Normal) Range: 254-1320 9:02 11-Feb-2009 Homocyst(e)ine, Plasma 9.8 umol/L (Normal) Comments: PERFORMED BY: [facility] [id number] 14:28 Range: 0.0-15.0 11-Feb-2009 Methylmalonic Acid, 336 nmol/L (Normal) Comments: PERFORMED BY: [facility] [id number] 14:28 Serum Range: 73-376 Comments: The reference range for methylmalonic acid has been set at +3sd abovethe mean for healthy blood bank donors. In the clinical assessment ofpatients with megaloblastic anemias a cutoff of +3sd provides gr eaterspecificity in the diagnosis of the vitamin deficiency states,despite the sacrifice of some sensitivity. 11-Feb-2009 TSH 2.700 {uIU/mL} Comments: PERFORMED BY: [employer] [address] [id number] 14:28 (Normal) Range: 0.450-4.500 11-Feb-2009 Vitamin B12 231 pg/mL (Normal) Comments: PERFORMED BY: [facility] [address] [id number] 14:28 Range: 211-911 1-Ssy-046930:09 HAND,MIN 3 VIEWS (MT) Radiology Report See Note (Normal) Comments: Exam Number: [id number] RIGHT WRIST CLINICAL DATAFell and injured the [...] osteoarthritis right hand. Reported By: FERNANDO TUCKER 9-Jry-316644:09 WRIST,MIN 3 VIEWS (MT) Radiology Report See Note (Normal) Comments: Exam Number: [id number] RIGHT WRIST CLINICAL DATAFell and injured the [...] PANEL, COMPREHENSIVE Comments: PATIENT WAS FASTINGPERFORMED BY: [facility]CoVirtua VoorheesCupefg2003 [facility] [id number] 80390) A/G Ratio 1.9 (Normal) Range: 1.1-2.5 Albumin, [...] 141 mmol/L (Normal) Range: 135-145 :42 TSH (13023) Comments: PATIENT WAS FASTINGPERFORMED BY: [facility] Ehxxdi7751 [facility] [id number] TSH 4.980 {uIU/mL} (Abnormal) Range: 0.450-4.500 :42 MICROALBUMIN: CREATININE RATIO Comments: PATIENT WAS FASTINGPERFORMED BY: cFaresVirtua VoorheesDpadyh0838 [facility] [id number] (26571) AND (87969) Creatinine, Urine 130.9 mg/dL (Normal) Range: 15.0-278.0 Microalb/Creat Ratio 66.4 {ug/mg_creat} (Abnormal) Range: 0.0-30.0 Microalbumin, Urine 86.9 ug/mL (Abnormal) Range: 0.0-17.0 :42 LIPID PANEL (82992) Comments: PATIENT WAS FASTINGPERFORMED BY: [facility] Lfcivg4208 [facility] [id number] Cholesterol, Total 148 mg/dL (Normal) Range: 100-199 HDL Cholesterol 42 mg/dL (Normal) Comments: According to ATP-III Guidelines, HDL-C >59 mg/dL is considered anegative risk factor for CHD. LDL Cholesterol Calc 78 mg/dL (Normal) Range: 0-99 LDL/HDL Ratio 1.9 {ratio_units} (Normal) Range: 0.0-3.2 Triglycerides 141 mg/dL (Normal) Range: 0-149 VLDL Cholesterol Priscilla 28 mg/dL (Normal) Range: 5-40 :42 CBC WITH MANUAL DIFF (22066) Comments: PATIENT WAS FASTINGClinical Information: ADD DRAW FEE [id number] ADD J 86696 PERFORMED BY: [facility] Bfaveb4231 [facility] [id number] Baso (Absolute) 0.1 {x10E3/uL} (Normal) Range: 0.0-0.2 [...] B-12 (CYANOCOBALAMIN) Comments: PATIENT WAS FASTINGPERFORMED BY: LabCoVirtua VoorheesOwyffl2462 [facility] [id number] (28101) Vitamin B12 232 pg/mL (Normal) Range: 211-911 6-Cpw-080963:06 Blood Glucose , Office (68874) Blood Glucose , Office 155 (Normal) :27 [...] (Normal) Range: 0.34-4.82 :27 HgA1C , Office (11701) Comments: done>Wf. HgA1C , Office 6.2 % (Normal) Range: 4.6 - 7.1 :27 Blood Glucose , Office (51553) Comments: done>Wf. Blood Glucose , Office 152 [...] for patient's is the eGFRmultiplied by 1.212. [facility] Laboratory uses the abbreviated Modification of Diet [...] Disease W/O Kidney Disease>/= 90 Stage One Sjwser39 - 89 Stage Two Suspect Decrease d [...] T PROT 7.3 g/dL (Normal) Range: 6.4-8.2 7-Wfp-872378:55 LIPID CHOL 287 mg/dL (Abnormal) Comments: <200 [...] mg/dL VLDL 50 mg/dL (Abnormal) Range: 40 5-Jfe-927998:55 MICROALB:CRE UR MALB:CREAT 28.3 {mg/g_CRE} (Normal) MICROALBUMIN,UR 41.7 mg/L (Normal) UR CREAT 147.6 mg/dL (Normal) :55 TSH 5.53 {uIU/mL} (Abnormal) Range: 0.34-4.82 :25 TSH 0.16 {uIU/mL} (Abnormal) Range: 0.34-4.82 :31 HgA1C , Office (34064) Comments: done HgA1C , Office 6.5 % (Normal) Range: 4.6 - 7.1 :31 Blood Glucose , Office (87251) Comments: done Blood Glucose , Office 128 (Normal) :01 TSH 5.15 {uIU/mL} (Abnormal) Range: 0.34-4.82 :12 HgA1C , Office (71442) Comments: done HgA1C , Office 6.2 % (Normal) Range: 4.6 - 7.1 :12 Blood Glucose , Office (24688) Comments: done Blood Glucose , Office 187 [...] Serum 117 ng/mL (Normal) Comments: PERFORMED BY: [facility] [id number] Range: 10-291 :33 Iron and TIBC Comments: PERFORMED BY: [facility] [id number] Iron Bind.Cap.(TIBC) 304 ug/dL (Normal) Range: 250-450 Iron Saturation 26 % (Normal) Range: 15-55 Iron, Serum 78 ug/dL (Normal) Range: 35-155 UIBC 226 ug/dL (Normal) Range: 150-375 : Vitamin B12 412 pg/mL (Normal) Comments: PERFORMED BY: [facility] [id number] 33 Range: 211-911 :56 LIPID CHOL 222 [...] (Normal) Range: 6.4-8.2 :07 HgA1C , Office (09491) Comments: done HgA1C , Office 5.9 % (Normal) Range: 4.6 - 7.1 :07 Blood Glucose , Office (22956) Comments: done Blood Glucose , Office 132 [...] mg/dL (Abnormal) Range: 34-200 Comments: Performed At: [address] [id number] :08 IRON+TIBC IRON SATURATION 17.9 % (Normal) [...] mg/dL (Normal) Range: 34-200 Comments: Performed At: [address] [id number] :56 IRON+TIBC IRON SATURATION 17.1 % (Normal) [...] 1.49 INDETERMINANT > OR = 1.50 SUGGEST FL :05 CPK TOTAL 149 U/L (Normal) Comments: Precautions*: NOT APPLICABLEINDICATE CK '1', '2', '3', OR 'R' FOR RANDOM: 2 Range: 215 :05 CPKMB 1.1 ng/mL (Normal) Comments: Precautions*: NOT APPLICABLEINDICATE CK '1', '2', '3', OR 'R' FOR RANDOM: 2 Range: 0.0-5.0 Comments: CK-MB and RI Interpretation MB Relative Index Non-AMI <or= 5 NA Indeterminate > 5 <or= 4 AMI > 5 > 4 7-Qbm-727259:05 TROPONIN-I < 0.04 ng/mL (Normal) Comments: Precautions*: NOT APPLICABLEINDICATE CK '1', '2', '3', OR 'R' FOR RANDOM: 2 Comments: TROPONIN-I EXPECTED VALUES < 0.50 NEGATIVE 0.50 - 1.49 INDETERMINANT > OR = 1.50 SUGGEST FL :15 PRO TIME Comments: Precautions*: NOT APPLICABLE INR 1.0 (Normal) PROTIME 12.6 s (Normal) Range: 11.7-13.3 :15 TROPONIN-I < 0.04 ng/mL (Normal) Comments: Precautions*: NOT APPLICABLE Comments: TROPONIN-I EXPECTED VALUES < 0.50 NEGATIVE 0.50 - 1.49 INDETERMINANT > OR = 1.50 SUGGEST FL :00 BMP Comments: COMMENTS: FEARONPrecautions*: NOT APPLICABLEINDICATE [...] 1.49 INDETERMINANT > OR = 1.50 SUGGEST FL :48 HgA1C , Office (57419) HgA1C , Office 6.4 % (Normal) Range: 4.6 - 7.1 :48 Blood Glucose , Office (67021) Blood Glucose , Office 113 (Normal) Plan [...] Indication: Double vision Double vision : Reviewed Choker Hooker Letter Indication: Double vision Fatty liver : [...] BMI 36.0-36.9,adult Right hip pain : Reviewed Choker Hooker Letter Indication: Right hip pain Right hip [...] (monoclonal gammopathy of unknown significance) : Reviewed Choker Hooker Letter- stable and discharged from onc Indication: [...] Fall down steps, initial encounter : Reviewed Choker Hooker Letter Indication: Fall down steps, initial encounter [...] infarction, unspecified Cerebral infarction, unspecified : Reviewed Choker Hooker Letter Indication: Cerebral infarction, unspecified Upper respiratory [...] Planned Observations CBC, PLATELETS & AUT DIFF (12949)Indication: Other vitamin B12 deficiency anemia On: :17 Request TSH (80596)Indication: Abnormal TSH On: :38 Request T4, FREE (THYROXINE) (28278)Indication: Abnormal TSH On: :38 Request T3, FREE (TRIDOTHYRONINE) (27652)Indication: Abnormal TSH On: :38 Request ANTI-LIVER/KIDNEY MICROSOMAL ANTIBODY (71289)Indication: Elevated liver enzymes On: 66-Faf-512111:34 Request TSH (91144)Indication: Abnormal TSH On: :31 Request T4, FREE (THYROXINE) (17298)Indication: Abnormal TSH On: :31 Request T3, FREE (TRIDOTHYRONINE) (50820)Indication: Abnormal TSH On: 72-Dqr-471153:31 Request BETA-2 MICROGLOBULIN (76698)Indication: Abnormal blood chemistry On: 58-Cyl-141124:08 Request Urinalysis, Office (55391)Indication: Urinary frequency On: 51-Buk-642937:38 Request CBC WITH MANUAL DIFF (01912)Indication: Therapeutic drug monitoring On: :57 Request Metabolic Panel, Basic (42098)Indication: Therapeutic drug monitoring On: :57 Request Methymalonic Acid, Serum (47227)Indication: Vitamin B 12 deficiency On: 53-Nlu-183572:51 Request CALCIFIDIOL (05537) VIT D 25Indication: Vitamin D deficiency, unspecified On: 33-Kwb-358639:45 Request LIPID PANEL (29859)Indication: Other and unspecified hyperlipidemia On: 97-Xvu-835166:45 Request CALCIFIDIOL (49198) VIT D 25Indication: Uncontrolled type II diabetes mellitus On: :46 Request TSH (99354)Indication: Uncontrolled type II diabetes mellitus On: :46 Request URINALYSIS, W/ MICRO (03930)Indication: Uncontrolled type II diabetes mellitus On: :46 Request MICROALBUMIN: CREATININE RATIO (37874) AND (45948)Indication: Uncontrolled type II diabetes mellitus On: :46 Request METABOLIC PANEL, COMPREHENSIVE (45706)Indication: Uncontrolled type II diabetes mellitus On: :46 Request LIPID PANEL (48285)Indication: Uncontrolled type II diabetes mellitus On: :45 Request CBC W/AUTO DIFF WBC (28339)Indication: Uncontrolled type II diabetes mellitus On: :45 Request Rapid Flu (12361 x 2)Indication: Flu-like symptoms On: 78-Uwn-929242:12 Request VITAMIN B-12 (CYANOCOBALAMIN) (18607)Indication: Vitamin B 12 deficiency On: 50-Sqk-623947:45 Request FECAL OCCULT- Tubes sent home (78625)Indication: Encounter for screening for malignant neoplasm of colon (Renamed from Special screening for malignant neoplasms, colon) On: 06-Cpc-458354:35 Request THYROXINE FREE (55447)Indication: Tachycardia On: 4-Sxd-819868:04 Request FREE TRIDOTHYRONINE (T3) (03821)Indication: Tachycardia On: 7-Emv-010214:04 Request TSH (THYROID STIMULATING HORMONE) (37719)Indication: Tachycardia On: 8-Wlj-910932:04 Request serum immunofixation (80748)Indication: MGUS (monoclonal gammopathy of unknown significance) On: 38-Gxs-266010:14 Request urine immunofixation (72415)Indication: MGUS (monoclonal gammopathy of unknown significance) On: 74-Pgx-318457:14 Request serum free light chains (92790)Indication: MGUS (monoclonal gammopathy of unknown significance) On: 43-Ode-308203:14 Request CBC W/AUTO DIFF WBC (40686)Indication: Diabetes mellitus type 2, controlled On: 50-Jyi-734423:13 Request MICROALBUMIN: CREATININE RATIO (12905) AND (23332)Indication: Diabetes mellitus type 2, controlled On: 08-Jki-045628:13 Request METABOLIC PANEL, COMPREHENSIVE (57704)Indication: Diabetes mellitus type 2, controlled On: 80-Ede-462336:13 Request LIPID PANEL (04110)Indication: Mixed hyperlipidemia On: 11-Hsv-691148:13 Request VITAMIN B-12 (CYANOCOBALAMIN) (39116)Indication: Other vitamin B12 deficiency anemia On: :12 Request CBC (AUTO) (81019)Indication: Other vitamin B12 deficiency anemia On: 56-Pdc-911655:12 Request Vitamin D Hydroxy (41200)Indication: Vitamin D deficiency, unspecified On: 61-Itb-243636:12 Request LIPID PANEL (06497)Indication: Mixed hyperlipidemia On: 5-Wnf-941625:42 Request METABOLIC PANEL, COMPREHENSIVE (29132)Indication: Benign essential hypertension (Renamed from Benign essential HTN) On: 2-Pzp-589248:41 Request MICROALBUMIN: CREATININE RATIO (82588) AND (97049)Indication: Benign essential hypertension (Renamed from Benign essential HTN) On: :41 Request SPEP ([id number])Indication: Anemia, unspecified On: 62-Vgh-317076:17 Request UPEP ([id number])Indication: Anemia, unspecified On: 90-Mkp-190666:17 Request CBC W/AUTO DIFF WBC ([id number])Indication: Iron (Fe) deficiency anemia On: 0-Hpt-740089:38 Request TSH ([id number])Indication: Acquired hypothyroidism On: 3-Szv-855897:38 Request TSH ([id number])Indication: Acquired hypothyroidism On: 02-Npc-328735:34 Request SPEP ([id number])Indication: Iron (Fe) deficiency anemia On: 73-Gfb-685994:34 Request UPEP ([id number])Indication: Iron (Fe) deficiency anemia On: 54-Ahq-974615:34 Request IRON BINDING CAPACITY (TIBC) (03172)Indication: Iron (Fe) deficiency anemia On: 77-Fvh-720983:34 Request FERRITIN (41300)Indication: Iron (Fe) deficiency anemia On: 98-Qxh-150077:34 Request IRON ([id number])Indication: Iron (Fe) deficiency anemia On: 75-Kxi-929378:34 Request CBC, PLATELETS & AUT DIFF ([id number])Indication: Other vitamin B12 deficiency anemia On: :34 Request VITAMIN B-12 (CYANOCOBALAMIN) (10540)Indication: Other vitamin B12 deficiency anemia On: 31-Akb-896666:33 Request Hemoglobin Glyclated (HGB A1C) (79207)Indication: Diabetes mellitus type 2, controlled On: 87-Pfp-523878:33 Request CBC, PLATELETS & AUT DIFF ([id number])Indication: Other vitamin B12 deficiency anemia On: :31 Request VITAMIN B-12 (CYANOCOBALAMIN) (41853)Indication: Other vitamin B12 deficiency anemia On: :30 Request METABOLIC PANEL, COMPREHENSIVE (81106)Indication: Benign essential hypertension (Renamed from Benign essential HTN) On: :30 Request LIPID PANEL (49966)Indication: Other and unspecified hyperlipidemia On: :30 Request Vitamin D Hydroxy (48539)Indication: Vitamin D deficiency, unspecified On: : Request DXWKF-VADRQMXOKCE-FOYGW ([id number])Indication: Fatty liver On: : Request LLEWY-EQWERHSNCIJ-QWNRD ([id number])Indication: Fatty liver On: 82-Qgr-894446:24 Request LIPID PANEL (39681)Indication: Mixed hyperlipidemia On: :23 Request TSH ([id number])Indication: Acquired hypothyroidism On: 56-Ihe-352580:23 Request MICROALBUMIN: CREATININE RATIO (78588) AND (24980)Indication: Diabetes mellitus type 2, controlled On: 79-Aqp-414965:23 Request METABOLIC PANEL, COMPREHENSIVE (97420)Indication: Diabetes mellitus type 2, controlled On: 15-Szd-552919:23 Request Vitamin D Hydroxy (10054)Indication: Vitamin D deficiency, unspecified On: 98-Xpa-863390:23 Request CBC, PLATELETS & AUT DIFF ([id number])Indication: Other vitamin B12 deficiency anemia On: 84-Lej-825874:20 Request VITAMIN B-12 (CYANOCOBALAMIN) (71081)Indication: Other vitamin B12 deficiency anemia On: 12-Ohb-512869:20 Request Vitamin D Hydroxy (56177)Indication: Vitamin D deficiency, unspecified On: 08-Tpl-429624:38 Request VITAMIN B-12 (CYANOCOBALAMIN) (95068)Indication: Other vitamin B12 deficiency anemia On: :38 Request CBC W/AUTO DIFF WBC ([id number])Indication: Other vitamin B12 deficiency anemia On: 15-Yuu-636234:37 Request TSH (13301)Indication: Acquired hypothyroidism On: 34-Qvj-105712:37 Request LIPID PANEL ([id number])Indication: Mixed hyperlipidemia On: :37 Request TMVIE-TRFPNZCSMTN-GKVOO ([id number])Indication: Fatty liver On: :08 Request PTT (Activated Partial Thromboplastin Time) (48194)Indication: Fatty liver On: : Request PT (Prothrobim Time) (80535)Indication: Fatty liver On: :08 Request Vitamin D Hydroxy (34612)Indication: Vitamin D deficiency, unspecified On: 57-Bqm-121167: Request VITAMIN B-12 (CYANOCOBALAMIN) (90570)Indication: Other vitamin B12 deficiency anemia On: : Request CBC W/AUTO DIFF WBC (78417)Indication: Diabetes mellitus type 2, controlled On: : Request METABOLIC PANEL, COMPREHENSIVE (63956)Indication: Diabetes mellitus type 2, controlled On: 81-Ydo-811396: Request LIPID PANEL (13457)Indication: Mixed hyperlipidemia On: : Request LIPID PANEL (80303)Indication: HYPERTENSION, NOS On: 4-Ztu-223033:40 Request CBC WITH MANUAL DIFF ([id number])Indication: HYPERTENSION, NOS On: 1-Kwh-989924:40 Request METABOLIC PANEL, COMPREHENSIVE (20675)Indication: HYPERTENSION, NOS On: :40 Request FECAL OCCULT- Tubes sent home ([id number])Indication: Anemia, unspecified On: 17-Gch-970160:38 Request IRON (65656)Indication: Anemia, unspecified On: :38 Request CBC WITH MANUAL DIFF (42063)Indication: HYPERTENSION, NOS On: 1-Gla-893601:29 Request METABOLIC PANEL, COMPREHENSIVE (70160)Indication: Uncontrolled type II diabetes mellitus On: 0-Lxj-412322:28 Request TSH (THYROID STIMULATING HORMONE) (82411)Indication: Acquired hypothyroidism On: 41-Qwa-059542:08 Request HgA1C , Office (86202)Indication: Diabetes mellitus type 2, controlled On: 88-Jzw-184207:55 Request VITAMIN B-12 (CYANOCOBALAMIN) (57236)Indication: Other vitamin B12 deficiency anemia On: 7-Nyn-628375:17 Request LIPID PANEL (48683)Indication: Other and unspecified hyperlipidemia On: :17 Request MICROALBUMIN: CREATININE RATIO (06422) AND (92612)Indication: Uncontrolled type II diabetes mellitus On: : Request METABOLIC PANEL, COMPREHENSIVE (13286)Indication: Uncontrolled type II diabetes mellitus On: : Request HgA1C , Office (17484)Indication: Diabetes mellitus type 2, controlled On: :25 Request LIPID PANEL (99657)Indication: Other and unspecified hyperlipidemia On: : Request METABOLIC PANEL, COMPREHENSIVE (63679)Indication: Diabetes mellitus type 2, controlled On: : Request MICROALBUMIN: CREATININE RATIO (38007) AND (97745)Indication: Diabetes mellitus type 2, controlled On: : Request VITAMIN B-12 (CYANOCOBALAMIN) (10650)Indication: Other vitamin B12 deficiency anemia On: : Request CBC, PLATELETS & AUT DIFF (84360)Indication: Other vitamin B12 deficiency anemia On: :11 Request Vitamin D Hydroxy (81975)Indication: Vitamin D deficiency, unspecified On: 41-Qce-316566:10 Request Blood Glucose , Office (19934)Indication: Diabetes mellitus type 2, controlled On: :29 Request LIPID PANEL (59644)Indication: Other and unspecified hyperlipidemia On: :26 Request Vitamin D Hydroxy (54000)Indication: Vitamin D deficiency, unspecified On: : Request VITAMIN B-12 (CYANOCOBALAMIN) (88543)Indication: Other vitamin B12 deficiency anemia On: : Request METABOLIC PANEL, COMPREHENSIVE (40619)Indication: Benign essential hypertension (Renamed from Benign essential HTN) On: : Request MICROALBUMIN: CREATININE RATIO (88521) AND (26435)Indication: Uncontrolled type II diabetes mellitus On: : Request Sputum Culture (57330)Indication: Chronic cough On: 6-Fsr-669015:58 Request RANI CULTURE-OTHER (00358)Indication: Sore throat On: 70-Vrs-207409:06 Request Urinalysis, Office (14325)Indication: Abnormal urine On: :14 Request RANI CULTURE-OTHER (34699)Indication: Abnormal urine On: :14 Request CCP ANTIBODY (04304)Indication: History of poliomyelitis (Renamed from H/O acute poliomyelitis) On: : Request ANTI-Sm (ANTI [place] ANTIBODY) (35401) test code [id number]: History of poliomyelitis (Renamed from H/O acute poliomyelitis) On: : Request RHEUMATOID FACTOR-QUANT (63585) test code [id number]: History of poliomyelitis (Renamed from H/O acute poliomyelitis) On: : Request Vitamin D Hydroxy (44578)Indication: Vitamin D deficiency, unspecified On: 64-Efa-979982:15 Request LIPID PANEL (57128)Indication: Other and unspecified hyperlipidemia On: :15 Request TSH (33955)Indication: Acquired hypothyroidism On: 04-Nuk-877168:15 Request METABOLIC PANEL, COMPREHENSIVE (40981)Indication: Diabetes mellitus type 2, controlled On: 79-Yhe-137019:14 Request VITAMIN B-12 (CYANOCOBALAMIN) (38195)Indication: Other vitamin B12 deficiency anemia On: 84-Fcq-039969:08 Request MICROALBUMIN: CREATININE RATIO (72253) AND (49463)Indication: Uncontrolled type II diabetes mellitus On: 42-Xrt-119160:30 Request METABOLIC PANEL, COMPREHENSIVE (97382)Indication: Uncontrolled type II diabetes mellitus On: 11-Sfb-429701:30 Request TSH (60284)Indication: Acquired hypothyroidism On: 88-Oyv-990327:30 Request Vitamin D Hydroxy (82630)Indication: Vitamin D deficiency, unspecified On: 00-Xgy-718272:30 Request LIPID PANEL (12996)Indication: Other and unspecified hyperlipidemia On: 46-Zpd-090790:29 Request LIPID PANEL (77906)Indication: Other and unspecified hyperlipidemia On: 26-Qjl-766577:51 Request TSH (32083)Indication: Acquired hypothyroidism On: 74-Fqa-522748:50 Request Vitamin D Hydroxy (51534)Indication: Vitamin D deficiency, unspecified On: 73-Owf-917019:50 Request CBC WITH MANUAL DIFF (83633)Indication: Diabetes mellitus type 2, controlled On: 39-Jfv-426002:50 Request METABOLIC PANEL, COMPREHENSIVE (64237)Indication: Diabetes mellitus type 2, controlled On: 27-Msg-205328:50 Request Vitamin D Hydroxy (34037)Indication: Vitamin D deficiency, unspecified On: :44 Request VITAMIN B-12 (CYANOCOBALAMIN) (57264)Indication: Other vitamin B12 deficiency anemia On: :44 Request CBC WITH MANUAL DIFF ([id number])Indication: Anemia, unspecified On: :43 Request METABOLIC PANEL, COMPREHENSIVE (63751)Indication: Diabetes mellitus type 2, controlled On: :43 Request MICROALBUMIN: CREATININE RATIO (01279) AND (48080)Indication: Diabetes mellitus type 2, controlled On: :43 Request LIPID PANEL (83260)Indication: Other and unspecified hyperlipidemia On: :43 Request TSH (98708)Indication: Acquired hypothyroidism On: :43 Request Vitamin D Hydroxy (43238)Indication: Vitamin D deficiency, unspecified On: :03 Request LIPID PANEL (31763)Indication: Other and unspecified hyperlipidemia On: :03 Request CBC WITH MANUAL DIFF (90799)Indication: Diabetes mellitus type 2, controlled On: :02 Request METABOLIC PANEL, COMPREHENSIVE (07161)Indication: Diabetes mellitus type 2, controlled On: 2-Cgv-723884:02 Request VITAMIN B-12 (CYANOCOBALAMIN) (55504)Indication: Other vitamin B12 deficiency anemia On: 3-Tke-713316:36 Request Comments: Lot #[id number]-left deltoidDose-1 mlgiven by: Dani Rivera LPN LIPID PANEL (84070)Indication: Other and unspecified hyperlipidemia On: :28 Request METABOLIC PANEL, COMPREHENSIVE (11310)Indication: Uncontrolled type II diabetes mellitus On: :28 Request TSH (29251)Indication: Acquired hypothyroidism On: :28 Request Vitamin D Hydroxy (84906)Indication: Vitamin D deficiency, unspecified On: :22 Request CBC WITH MANUAL DIFF (19610)Indication: Anemia, unspecified On: :22 Request CBC WITH MANUAL DIFF ([id number])Indication: Other vitamin B12 deficiency anemia On: 9-Nuz-525049:20 Request Blood Glucose , Office (85395)Indication: Uncontrolled type II diabetes mellitus On: :15 Request Comments: 149 HgA1C , Office (08864)Indication: Uncontrolled type II diabetes mellitus On: :15 Request METABOLIC PANEL, COMPREHENSIVE (89573)Indication: Other and unspecified hyperlipidemia On: :22 Request LIPID PANEL (37924)Indication: Other and unspecified hyperlipidemia On: :22 Request TSH ([id number])Indication: Acquired hypothyroidism On: :22 Request HEMOGLOBIN GLYCLATED (HGB A1C) (72669)Indication: Abnormal glucose tolerance test On: 28-Rod-153106:20 Request VITAMIN B-12 (CYANOCOBALAMIN) (04337)Indication: Other vitamin B12 deficiency anemia On: 48-Aaw-535975:17 Request Vitamin D Hydroxy (57838)Indication: Vitamin D deficiency, unspecified On: :21 Request VITAMIN B-12 (CYANOCOBALAMIN) (18495)Indication: Other vitamin B12 deficiency anemia On: 4-Oov-701152:20 Request LIPID PANEL (64090)Indication: Abnormal glucose tolerance test On: :20 Request CBC WITH MANUAL DIFF ([id number])Indication: Abnormal glucose tolerance test On: 7-Flt-516297:20 Request METABOLIC PANEL, COMPREHENSIVE (56996)Indication: Abnormal glucose tolerance test On: :20 Request METABOLIC PANEL, COMPREHENSIVE (11495)Indication: Abnormal glucose tolerance test On: :59 Request CBC WITH MANUAL DIFF (33955)Indication: Abnormal glucose tolerance test On: 9-Tjd-553303:59 Request Vitamin D Hydroxy (60153)Indication: Vitamin D deficiency, unspecified On: 7-Uuj-305455:59 Request VITAMIN B-12 (CYANOCOBALAMIN) (76005)Indication: Other vitamin B12 deficiency anemia On: 6-Fvc-631946:59 Request TSH (67617)Indication: Acquired hypothyroidism On: 7-Mgf-723827:58 Request LIPID PANEL (84133)Indication: Other and unspecified hyperlipidemia On: 5-Fmw-204235:58 Request CCP ANTIBODY (43216)Indication: Pain in unspecified joint On: 43-Duo-081548:22 Request VITAMIN B-12 (CYANOCOBALAMIN) (23652)Indication: Other vitamin B12 deficiency anemia On: 2-Uxq-786811:10 Request Vitamin D Hydroxy (13629)Indication: Vitamin D deficiency, unspecified On: 6-Pow-241703:10 Request MICROALBUMIN: CREATININE RATIO (37134) AND (71672)Indication: Uncontrolled type II diabetes mellitus On: :10 Request CBC WITH MANUAL DIFF (16959)Indication: Uncontrolled type II diabetes mellitus On: 6-Omn-423321:10 Request METABOLIC PANEL, COMPREHENSIVE (30368)Indication: Benign essential hypertension (Renamed from Benign essential HTN) On: 8-Dll-691690:09 Request LIPID PANEL (20810)Indication: Other and unspecified hyperlipidemia On: 4-Ncq-074692:09 Request TSH (81369)Indication: Acquired hypothyroidism On: 4-Ebe-151831:39 Request VITAMIN B-12 (CYANOCOBALAMIN) (52230)Indication: Other vitamin B12 deficiency anemia On: 7-Cln-476644:37 Request HEPATIC FUNCTION PANEL (96528)Indication: Other and unspecified hyperlipidemia On: 3-Oxw-818966:36 Request LIPID PANEL (24509)Indication: Other and unspecified hyperlipidemia On: 0-Bcg-933824:36 Request Vitamin D Hydroxy (59343)Indication: Vitamin D deficiency, unspecified On: 8-Ljh-213850:36 Request METABOLIC PANEL, COMPREHENSIVE (31532)Indication: Benign essential hypertension (Renamed from Benign essential HTN) On: 5-Hxd-943803:35 Request LIPID PANEL (97605)Indication: Other and unspecified hyperlipidemia On: 8-Qvu-284408:35 Request Vitamin D Hydroxy (63871)Indication: Vitamin D deficiency, unspecified On: 9-Fot-518937:30 Request Vitamin D Hydroxy (53622)Indication: Vitamin D deficiency, unspecified On: 81-Bxg-016187:10 Request MICROALBUMIN: CREATININE RATIO (08223) AND (67895)Indication: Uncontrolled type II diabetes mellitus On: 59-Uwg-242943:07 Request LIPID PANEL (63754)Indication: Other and unspecified hyperlipidemia On: :07 Request TSH (80756)Indication: Acquired hypothyroidism On: :07 Request VITAMIN B-12 (CYANOCOBALAMIN) (54486)Indication: Other vitamin B12 deficiency anemia On: 99-Nfo-971039:42 Request Vitamin D Hydroxy (60456)Indication: Vitamin D deficiency, unspecified On: :50 Request IRON BINDING CAPACITY (TIBC) (06849)Indication: Iron (Fe) deficiency anemia On: :50 Request LDH (LD) (LACTATE DEHYDROGENASE) (38496)Indication: Iron (Fe) deficiency anemia On: :50 Request FERRITIN (34390)Indication: Iron (Fe) deficiency anemia On: :50 Request IRON (10614)Indication: Iron (Fe) deficiency anemia On: :50 Request CBC WITH MANUAL DIFF (57641)Indication: Iron (Fe) deficiency anemia On: :50 Request HEPATIC FUNCTION PANEL (74291)Indication: Other and unspecified hyperlipidemia On: :44 Request LIPID PANEL (92858)Indication: Other and unspecified hyperlipidemia On: :44 Request CBC WITH MANUAL DIFF (75770)Indication: Other vitamin B12 deficiency anemia On: 1-Nkh-750354:54 Request MICROALBUMIN: CREATININE RATIO (03589) AND (32542)Indication: Glucose intolerance (no malabsorption) On: 7-Mnh-387076:54 Request METABOLIC PANEL, COMPREHENSIVE (01281)Indication: HYPERTENSION, NOS On: :54 Request LIPID PANEL (35233)Indication: Other and unspecified hyperlipidemia On: :53 Request VITAMIN B-12 (CYANOCOBALAMIN) (76112)Indication: Other vitamin B12 deficiency anemia On: :53 Request IRON (04547)Indication: Iron (Fe) deficiency anemia On: :53 Request Vitamin D Hydroxy (91063)Indication: Osteopenia On: 3-Qux-069044:49 Request Methylmalonic acid, serum 34012Thllhwgiwo: Other vitamin B12 deficiency anemia On: :03 Request VITAMIN B-12 (CYANOCOBALAMIN) (68743)Indication: Other vitamin B12 deficiency anemia On: 42-Ven-603370:03 Request TSH (77381)Indication: Acquired hypothyroidism On: :03 Request HgA1C , Office (11319)Indication: Abnormal glucose tolerance test On: 4-Pof-046197:06 Request TSH (57633)Indication: Acquired hypothyroidism On: :35 Request LIPID PANEL (62177)Indication: Other and unspecified hyperlipidemia On: :35 Request METABOLIC PANEL, COMPREHENSIVE (94310)Indication: SOB (shortness of breath) on exertion On: :34 Request CBC WITH MANUAL DIFF (94814)Indication: SOB (shortness of breath) on exertion On: :34 Request TSH (55994)Indication: Acquired hypothyroidism On: 4-Vfm-684714:46 Request Comments: do in 6 weeks TSH (44591)Indication: Acquired hypothyroidism On: 43-Xdm-341178:15 Request Comments: DO IN 6 WEEKS WITH MEDICATION CHANGE TSH (97923)Indication: Other malaise and fatigue On: 87-Eit-53980:49 Request Iron Binding Capacity (TIBC) (66799)Indication: Iron (Fe) deficiency anemia On: 08-Qeg-564358:43 Request Ferritin (24200)Indication: Iron (Fe) deficiency anemia On: 10-Fqq-090590:43 Request Iron (16588)Indication: Iron (Fe) deficiency anemia On: 49-Keb-473532:43 Request HEPATIC FUNCTION PANEL (55540)Indication: Mixed hyperlipidemia On: 38-Eid-285249:42 Request LIPID PANEL (17119)Indication: Mixed hyperlipidemia On: 19-Eax-933091:42 Request Comments: do in 3 months HEPATIC FUNCTION PANEL (14903)Indication: Mixed hyperlipidemia On: 7-Thw-874093:11 Request LIPID PANEL (75219)Indication: Mixed hyperlipidemia On: 4-Obx-847297:11 Request Comments: do in 3 mo TSH (09227)Indication: Acquired hypothyroidism On: Request VITAMIN B-12 (CYANOCOBALAMIN) (70604)Indication: Anemia, unspecified On: Request LDH (LD) (LACTATE DEHYDROGENASE) (01282)Indication: Anemia, unspecified On: Request RETICULOCYTE COUNT MANUL (23585)Indication: Anemia, unspecified On: Request IRON BINDING CAPACITY (TIBC) (92459)Indication: Anemia, unspecified On: Request IRON (20621)Indication: Anemia, unspecified On: Request FOLIC ACID SERUM (59446)Indication: Anemia, unspecified On: Request HAPTOGLOBIN (39592)Indication: Anemia, unspecified On: Request FERRITIN (47152)Indication: Anemia, unspecified On: Request CBC, PLATELETS & AUT DIFF (90525)Indication: Anemia, unspecified On: Request HgA1C , Office (29399)Indication: Abnormal glucose tolerance test On: : Request CBC with manual diff (28032)Indication: Anemia, unspecified On: :49 Request HgA1C , Office (78937)Indication: Abnormal glucose tolerance test On: 49-Pmp-876796:30 Request Comments: controlled URINALYSIS W/O MICRO (11418)Indication: HYPERTENSION, NOS On: :03 Request TSH (50763)Indication: Acquired hypothyroidism On: :03 Request MICROALBUMIN URINE QUANT (69118)Indication: HYPERTENSION, NOS On: 82-Viw-573147:03 Request METABOLIC PANEL, COMPREHENSIVE (04296)Indication: HYPERTENSION, NOS On: :03 Request LIPID PANEL (05078)Indication: HYPERTENSION, NOS On: 04-Rkf-257277:03 Request CBC WITH MANUAL DIFF ([id number])Indication: HYPERTENSION, NOS On: 29-Ddx-948614:03 Request Planned Procedures Aerosol Treatment (70160)By: On: 14-Apr-2018 Intent Thelma Sofia Comments: Lungs clear after albuterol aerosol treatment Ultrasound - LiverBy: Melanie DO, On: 21-Nov-2017 Intent Doris Melanie DO, Doris Melanie DO, Doris B 12 Injection, 1000 mcg ([id number])By: On: 21-Nov-2017 Intent Melanie DO, Doris Melanie DO, Comments: Vitamin b12 1000mcg injection lot:[id number]:04/2019L DELT IMpt tolerated well CARYN DUMONT Doris Melanie DO, Doris PHYSICAL THERAPY (18963)By: [place], On: 28-Oct-2017 Intent Thelma Radiology - Hip - LeftBy: [place], On: 28-Oct-2017 Intent Thelma Aerosol Treatment (33949)By: Melanie On: 07-Aug-2017 Intent DO, Doris Melanie DO, Doris Comments: more a/e less nois e Melanie DO, Doris Spirometry (88218)By: Melanie KEBDEE, On: 07-Aug-2017 Intent Doris Melanie DO, Doris Melanie Comments: really poor techniq DO, Doris Radiology - Chest- PA and LatBy: On: 07-Aug-2017 Intent Melanie DO, Doris Melanie DO, Doris Melanie DO, Doris IV Needle placement (83136)By: On: 02-Aug-2017 Intent Melanie DO, Doris Melanie DO, Doris Melanie DO, Doris INFUSION, NORMAL SALINE SOLUTION , On: 02-Aug-2017 Intent 1000 CC (Special Coverage Comments: lot:[id number]:02-26-2019rte:right anticubdose:1000ml given by:david Snwo LPN Instructions Apply. See MCM: 2048) (J7030)By: Melanie DO, Doris Melanie DO, Doris Melanie DO, Doris INFUSION, NORMAL SALINE SOLUTION , On: 01-Aug-2017 Intent 1000 CC (Special Coverage Comments: lot:[id number]:02-26-2019rte:IV left anticubdose:1000ml NS given by:david Snow LPN Instructions Apply. See MCM: 2048) (J7030)By: Tobi, Marcia Aerosol Treatment (77357)By: Melanie On: 01-Aug-2017 Intent Doris KEBEDE MelanieDoris driscoll DO Comments: more a/e less junky sounding Melanie DODoris PNEUM VAC ADLT/IMUMNOSPR, SBC/INTRM On: 25-Apr-2017 Intent (20166)By: Doris Navarro DO Comments: 0.5cc given sq lt arm lot [id number] exp 09/05/18 Melanie DO, Doris Melanie DODoris INTENSIVE BEHAVIORAL THERAPY TO On: 25-Apr-2017 Intent REDUCE CARDIOVASCULAR DISEASE RISK, INDIVIDUAL, TZJA-[id number]-GUQV, ANNUAL, 15 MINUTES (G0446)By: Doris Navarro DO Melanie DO, Doris Melanie DODoris AXTH-CZ-UVUQ BEHAVIORAL COUNSELING On: 25-Apr-2017 Intent FOR OBESITY, 15 MINUTES (G0447)By: Doris Navarro DO Melanie DO, Doris Melanie DO, Doris B 12 Injection, 1000 mcg (J3420)By: On: 25-Apr-2017 Intent Melanie DO, Doris Melanie DO, Comments: 1 ml given lt arm lot [id number] exp 03/15 Doris Jay DO ELECTROCARDIOGRAM, COMPLETE (ECG) On: 25-Apr-2017 Intent (87822)By: Doris Navarro DO Comments: nsr no acute chg Melanie DO, Doris Melanie DO, Doris B 12 Injection, 1000 mcg (J3420)By: On: 14-Mar-2017 Intent Melanie DO, Doris Melanie DO, Comments: lot [id number] 09/16left [id number] mcgas, VP DATA Doris Melanie DO, Doris B 12 Injection, 1000 mcg (J3420)By: On: 31-Dec-2016 Intent Melanie DO Doris Melanie DO, Comments: [id number], VP DATA Doris Melanie DO, Doris B 12 Injection, 1000 mcg (J3420)By: On: 20-Sep-2016 Intent Melanie DO, Doris Melanie DO, Comments: lot:[id number]: 4/18Dose: 1,000 mcgSite: R dltdLocation; IMby:, VP DATA Doris Melanie DO, Doris Solu- Medrol Injection, 125mg On: 20-Aug-2016 Intent (J2930)By: MelanieJd driscoll DOeen Comments: lot: [id number]: 01/14site/route: LGM/IMamt:2mLVIS signed when applicableChelsea, DENTAL TECHNICIAN Melanie DO, Doris Melanie DO, Doris Aerosol Treatment (28812)By: Melanie On: 20-Aug-2016 Intent DO, Doirs Melanie DO, Doris Comments: albulterol 0.83%relistedned nad more a/e less noise Melanie DO, Doris B 12 Injection, 1000 mcg ([id number])By: On: 20-Aug-2016 Intent Melanie DO, Doris Melanie DO, Comments: lot: [id number]: ite/route: L del/IMamt: 1mLVIS signed when applicableChelsea, DENTAL TECHNICIAN Doris Melanie DO, Doris Spirometry (82040)By: Melanie DO, On: 16-Aug-2016 Intent Doris Melanie DO, Doris Melanie Comments: ok stable - DO, Doris Aerosol Treatment (48280)By: Melanie On: 16-Aug-2016 Intent DO, Doris Melanie DO, Doris Comments: albulterol 0.83%more a.e stil some niose in RUL -- junky and easy to cough Melanie DO, Doris Solu- Medrol Injection, 125mg On: 16-Aug-2016 Intent (J2930)By: MelanieJd driscoll DOeen Comments: lot [id number] mgright gm, IMas VP DATA Melanie DO, Doris Melanie DO, Doris B 12 Injection, 1000 mcg (J3420)By: On: 20-Jul-2016 Intent Melanie DO, Doris Melanie DO, Comments: B12lot:[id number]:ite:rt deltroute:IMdose:1mlD.HAY Valentin Doris Melanie DO, Doris Solu- Medrol Injection, 125mg On: 20-Jul-2016 Intent (J2930)By: Doris Navarro DO Comments: lot: [id number]: 01/14site/route: RGM/IMamt: 2mLVIS signed when applicableChelsea, DENTAL TECHNICIAN Melanie DO, Doris Melanie DO, Doris Aerosol Treatment (30438)By: Melanie On: 20-Jul-2016 Intent DO, Doris Melanie DO, Doris Comments: less wheeze good a/e- less irritability with breathing Doris Navarro DO Radiology - Chest- PA and LatBy: On: 20-Jul-2016 Intent Melanie DO, Doris Melanie DO, Doris Melanie DO, Doris Spirometry (50085)By: Melanie KEBEDE, On: 20-Jul-2016 Intent Doris Melanie DO, Doris Melanie Comments: mild restriction =- poor curve and technique DO, Doris ELECTROCARDIOGRAM, COMPLETE (ECG) On: 20-Jul-2016 Intent ([id number])By: Doris Navarro DO Comments: sinus braden no acute chg Melanie DO, Doris Melanie DO, Doris B 12 Injection, 1000 mcg (J3420)By: On: 29-May-2016 Intent Melanie DO, Doris Melanie DO, Comments: Lot:[id number]:11/13Dose:1mlRoute:IMSite:r armGiven By:SAADIA signed Doris Melanie DO, Doris Flu Vaccine (Quadrivalent) 57059Yq: On: 29-May-2016 Intent Melanie DO, Doris Melanie DO, Comments: Lot:[id number]:01/25/17Dose:0.5mLRoute:IMSite:L DltdGiven By:SAADIA signed Doris Melanie DO, Doris B 12 Injection, 1000 mcg (J3420)By: On: 21-May-2016 Intent Melanie DO, Doris Melanie DO, Doris Melanie DO, Doris B 12 Injection, 1000 mcg (J3420)By: On: 18-May-2016 Intent Melanie DO, Doris Melanie DO, Comments: B12lot:[id number]:ite:rt deltroute:IMdose:1mlD.HAY Valentin Doris Melanie DO, Doris B 12 Injection, 1000 mcg (J3420)By: On: 11-May-2016 Intent Melanie DO, Doris Melanie DO, Comments: lot [id number] [facility] VP DATA Doris Melanie DO, Doris B 12 Injection, 1000 mcg (J3420)By: On: 08-May-2016 Intent Melanie DO, Doris Melanie DO, Comments: B12lot:[id number]:ite:rt deltroute:IMdose:1mlD.Homero HAY Doris Melanie DO, Doris B 12 Injection, 1000 mcg (J3420)By: On: 04-May-2016 Intent Visit, Nurse Comments: given - see flowsheet B 12 Injection, 1000 mcg (J3420)By: On: 27-Apr-2016 Intent Melanie DO, Doris Melanie DO, Comments: Lot:[id number]:11/13Dose:1mlRoute:IMSite:l armGiven By:JHOSSEIN signed Doris Melanei DO, Doris B 12 Injection, 1000 mcg (J3420)By: On: 20-Apr-2016 Intent Melanie DO, Doris Melanie DO, Comments: lot: [id number]: ite/route: R del/IMamt: 1mLVIS signed when applicableChelsea, DENTAL TECHNICIAN Doris Melanie DO, Doris B 12 Injection, 1000 mcg (J3420)By: On: 13-Apr-2016 Intent Mckinley Valentin Comments: B12lot:[id number]:ite:lt deltroute:IMdose:1mlD.HAY Valentin INTENSIVE BEHAVIORAL THERAPY TO On: 09-Apr-2016 Intent REDUCE CARDIOVASCULAR DISEASE RISK, INDIVIDUAL, SAYG-HK-[id number], ANNUAL, 15 MINUTES (G0446)By: Melanie DO, Doris Melanie DO, Doris Melanie DO, Doris WNCZ-PV-[id number] BEHAVIORAL COUNSELING On: 09-Apr-2016 Intent FOR OBESITY, 15 MINUTES (G0447)By: Melanie DO, Doris Melanie DO, Doris Melanie DO, Doris MAMMOGRAM, SCREENING, BOTH BREAST On: 09-Apr-2016 Intent ([id number])By: Melanie DO, Doris Melanie DO, Doris Melanie DO, Doris DEXA SCAN AXIAL SKELETON ([id number])By: On: 09-Apr-2016 Intent Melanie DO, Doris Melanie [...] Comments: Lot:[id number]:04/14Dose:1mlRoute:IMSite:l armGiven By:SAADIA signed Aerosol Treatment ([id number])By: Fast On: 03-Aug-2015 Intent DO, Maggie A B 12 Injection, 1000 mcg (J3420)By: On: 17-May-2015 Intent Fast DO Maggie A Comments: Lot:[id number]:11/12Dose:1mlRoute:IMSite:l armGiven By:SAADIA signed Flu Vaccine (Quadrivalent) 09050Kg: On: 17-May-2015 Intent Fast DO Maggie A Comments: lot [id number]: 01/26/2016site/route L sol, IMamt 0.5mlVIS and ABN signed when applicableChelsea, CMAFM4 ADMINISTRATION OF INFLUENZA VIRUS On: 17-May-2015 Intent VACCINE (G0008)By: Maggie Tracey DO A B 12 Injection, 1000 mcg (J3420)By: On: 15-Feb-2015 Intent Kanika Georges Comments: Lot:[id number]:11.16Route:IMSite:R deltoidDose: 1 mLgiven by: Kanika Georges CMA DANIEL (Ankle Brachial Index) On: 08-Feb-2015 Intent ([id number])By: Maggie Tracey DO Radiology - Lumbar SpineBy: Alexy KEBEDE, On: 08-Feb-2015 Intent Maggie Armstrong Ultrasound - ThyroidBy: Alexy KEBEDE, On: 09-Nov-2014 Intent Maggie A B 12 Injection, 1000 mcg (J3420)By: On: 09-Nov-2014 Intent Camelia Tracey DOa A Comments: lot [id number] mcgleft dltdIMas, VP DATA Radiology - Chest- PA and LatBy: On: 13-Sep-2014 Intent Alexy KEBEDE Maggie A Comments: call stat Pulse Oximetry ([id number])By: Alexy KEBEDE, On: 13-Sep-2014 Intent Maggie A Comments: 97% Inhaler Demonstration ([id number])By: On: 07-Sep-2014 Intent Kimberley Loyd CNP Radiology - Chest- PA and LatBy: On: 14-Jul-2014 Intent Alexy KEBEDE Maggie A Comments: call rsults Spirometry ([id number])By: Alexy KEBEDE, On: 14-Jul-2014 Intent Maggie A Comments: good effort and curve mild rest /obst Prevnar 13 ([id number])By: Alexy KEBEDE, On: 30-Jun-2014 Intent Maggie A Comments: lot [id number] 09/2015location L armroute imgiven by - msmithVIS and/or ABN signed MAMMOGRAM, SCREENING, BOTH BREAST On: 14-Apr-2014 Intent ([id number])By: Maggie Tracey DO A B 12 Injection, 1000 mcg (J3420)By: On: 14-Apr-2014 Intent Camelia Tracey DOa A Comments: Lot #:[id number] date:mount given:1mlRoute: IMSite given: left deltoidGiven by: HYA Zavala Cartoid DopplerBy: Alexy DO Maggie A On: 14-Apr-2014 Intent Eprescribed prescriptions (G8553)By: On: 07-Oct-2013 Intent Fast DO, Maggie A DXA, BONE DENSITY, AXIAL SKELETON On: 20-Jul-2013 Intent ([id number])By: Alexy KEBEDE Maggie A Comments: aug Pelvic and Breast, Medicare On: 20-Jul-2013 Intent (G0101)By: Alexy DOCameliaa A Cartoid DopplerBy: Fast DO, Maggie A On: 07-Jul-2013 Intent Eprescribed prescriptions (G8553)By: On: 07-Jul-2013 Intent Raiza Ortiz FLU VAC, SPLIT, >3 YEARS, INTRAMUSC On: 04-May-2013 Intent ([id number])By: Maritza Cantor Comments: lot [id number] 2014site/route L sol, IMamt 0.5mlVIS and ABN signed when applicableChelsea, [facility] ADMINISTRATION OF INFLUENZA VIRUS On: 04-May-2013 Intent VACCINE (G0008)By: Maritza Cantor Radiology - Hip - LeftBy: Alexy KEBEDE, On: 07-Apr-2013 Intent Maggie Armstrong Eprescribed prescriptions (G8553)By: On: 07-Apr-2013 Intent Raiza Ortiz Eprescribed prescriptions (G8553)By: On: 05-Jan-2013 Intent Raiza Ortiz Spirometry ([id number])By: Alexy KEBEDE, On: 01-Dec-2012 Intent Maggie A Comments: good effort and curve normal Radiology - Chest- PA and LatBy: On: 01-Dec-2012 Intent Alexy KEBEDE Maggie A Comments: stat call wet read Eprescribed prescriptions (G8553)By: On: 01-Dec-2012 Intent Raiza Ortiz Pulse Oximetry (57594)By: Angel, On: 01-Dec-2012 Intent Raiza Comments: 98% Eprescribed prescriptions (G8553)By: On: 27-Nov-2012 Intent Melanie DO, Doris Melanie DO, Doris Melanie DO, Doris MAMMOGRAM, SCREENING, BOTH BREASTS On: 29-Sep-2012 Intent ([id number])By: Camelia Tracey DOa A EKG (54436)By: Raiza Ortiz On: 29-Sep-2012 Intent Comments: ekg- 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 axis and no acute st t wave changes Eprescribed prescriptions (G8553)By: On: 29-Sep-2012 Intent Raiza Ortiz Eprescribed prescriptions (G8553)By: On: 03-Sep-2012 Intent Raiza Ortiz Eprescribed prescriptions (G8553)By: On: 30-Jul-2012 Intent Raiza Ortiz B 12 Injection, 1000 mcg (J3420)By: On: 23-Jun-2012 Intent Maggie Tracey DO A Comments: Lot:[id number]:Dose:1mlRoute:IMSite:L armGiven By:SAADIA signed Eprescribed prescriptions (G8553)By: On: 23-Jun-2012 Intent Raiza Ortiz B 12 Injection, 1000 mcg (J3420)By: On: 25-Mar-2012 Intent Maricruz Rivera LPN Comments: Lot #[id number]-06/10Site-right deltoidDose-1 mlgiven by: Dani Rivera LPN Eprescribed prescriptions (G8553)By: On: 25-Mar-2012 Intent Maggie Tracey DO FLU VAC, SPLIT, >3 YEARS, INTRAMUSC On: 25-Mar-2012 Intent ([id number])By: Patsy Leslie LPN Comments: Lot/Exp: [id number], 12/2011Given in L Dltd, IMPrefilled SyringeBy CARYN Garner ADMINISTRATION OF INFLUENZA VIRUS On: 25-Mar-2012 Intent VACCINE (G0008)By: Patsy Leslie LPN Echo CompleteBy: Alexy KEBEDE Maggie A On: 07-Dec-2011 Intent B 12 Injection, 1000 mcg (J3420)By: On: 07-Dec-[address] - OtherBy: Alexy DO Maggie A On: 03-Oct-2011 Intent Comments: get cta of carotid arteries TDAP VACCINE >7 IM ([id number])By: On: 03-Oct-2011 Intent Raiza Ortiz B 12 Injection, 1000 mcg (J3420)By: On: 07-Sep-2011 Intent Raiza Ortiz Comments: Lot #[id number]-/Site-left deltoidDose-1 mlgiven by: Dani Rivera LPN Cartoid DopplerBy: Maggie Tracey DO On: 07-Sep-2011 Intent Comments: in september DXA, BONE DENSITY, AXIAL SKELETON On: 07-Sep-2011 Intent ([id number])By: Maggie Tracey DO MAMMOGRAM, SCREENING, BOTH BREASTS On: 07-Sep-2011 Intent ([id number])By: Maggie Tracey DO Aerosol Treatment (63770)By: Ciesa On: 08-Aug-2011 Intent INKJET OPERATOR, Kimberley Poe EKG (33483)By: Raiza Ortiz On: 06-Jun-2011 Intent Comments: ekg showed normal sinus rhythym, left axis, no acute st/t wave changes DXA, BONE DENSITY, AXIAL SKELETON On: 06-Jun-2011 Intent (72025)By: Maggie Tracey DO FLU VAC, SPLIT, >3 YEARS, INTRAMUSC On: 11-May-2011 Intent ([id number])By: Maricruz Rivera LPN Comments: Lot #[id number]-10/20/Site-left deltoidgiven by: Dani Rivera LPN B 12 [...] PNEUM VAC ADLT/IMUMNOSPR, SBC/INTRM On: 03-Jul-2010 Intent ([id number])By: Maggie Tracey DO Comments: Lot #[id number]-/10/07Site-left deltoidDose- 0.5mlgiven by:[facility] ADMINISTRATION OF PNEUMOCOCCAL On: 03-Jul-2010 Intent VACCINE (G0009)By: Maggie Tracey DO MAMMOGRAM, SCREENING, BOTH BREASTS On: 03-Jul-2010 Intent ([id number])By: Maggie Tracey DO B 12 Injection, 1000 mcg (J3420)By: On: 20-Jun-2010 Intent Maggie Tracey DO Comments: Lot #[id number]-12/07Site-left deltoidDose-1 mlgiven by:[facility] B 12 Injection, 1000 mcg (J3420)By: On: 10-May-2010 Intent Apoorva Calle Comments: Lot:[id number]:12/07Dose:1000mcg/1mlRoute:IMSite:right deltoid Given by: HAY Birch FLU VAC, SPLIT, >3 YEARS, INTRAMUSC On: 10-May-2010 Intent ([id number])By: Apoorva Calle Comments: Lot:[id number]:4/2011Dose:0.5mlRoute:IMSite:Left Deltoid Given by: HAY Birch ADMINISTRATION OF INFLUENZA VIRUS On: 10-May-2010 Intent VACCINE (G0008)By: Apoorva Calle Doppler Ultrasound OtherBy: Alexy KEBEDE, On: 12-Apr-2010 Intent Maggie Armstrong Comments: both legs stat- left leg swelling- call wet read Spirometry (19512)By: Alexy KEBEDE, On: 12-Apr-2010 Intent Maggie A Comments: good effort and curve normal B 12 Injection, 1000 mcg (J3420)By: On: 05-Apr-2010 Intent Maggie Tracey DO Ultrasound - GallbladderBy: Alexy KEBEDE, On: 01-Feb-2010 Intent Maggie A IV Needle placement (32049)By: On: 10-Jan-2010 Intent Ana Guzman Comments: IV 22 gauge inserted in right antecubital on first attempt and 0.9 NSS running without difficulty-AW INFUSION, NORMAL SALINE SOLUTION , On: 10-Jan-2010 Intent 1000 CC (Special Coverage Instructions Apply. See MCM: 2049) (J7030)By: Kimberley Loyd CNP THER/PROPH/DIAG INJ, SC/IM On: 10-Jan-2010 Intent ([id number])By: Kimberley Loyd CNP Radiology - Knee - Right - Weight On: 03-Jan-2010 Intent BearingBy: Maggie Tracey DO EKG (81638)By: Raiza Ortiz On: 03-Jan-2010 Intent Comments: ekg showed normal sinus rhythym, left axis, no acute st/t wave changes Aerosol Treatment ([id number])By: Evert On: 19-Oct-2009 Intent Kimberley LOVE Cartoid DopplerBy: Maggie Tracey DO On: 14-Jun-[address] - Brain/HeadBy: Maggie Tracey DO On: 06-Jun-2009 Intent MAMMOGRAM, SCREENING, BOTH BREASTS On: 06-Jun-2009 Intent ([id number])By: Maggie Tracey DO DXA, BONE DENSITY, AXIAL SKELETON On: 06-Jun-2009 Intent ([id number])By: Maggie Tracey DO FLU VAC, SPLIT, >3 YEARS, INTRAMUSC On: 12-May-2009 Intent ([id number])By: Maricruz Rivera LPN Comments: Lot #[id number]-left deltoidgiven by:[facility] ADMINISTRATION OF INFLUENZA VIRUS On: 12-May-2009 Intent VACCINE (G0008)By: Maricruz Rivera LPN Radiology - Hand - RightBy: Alexy KEBEDE, On: 26-Jan-2009 Intent Maggie Armstrong Radiology - Wrist - RightBy: Fast On: 26-Jan-2009 Intent DO Maggie A Comments: call wet read Pulse Oximetry (50476)By: Alexy KEBEDE, On: 27-Dec-2008 Intent Maggie A Comments: 98 Inhaler Demo ([id number])By: Alexy KEBEDE, On: 27-Dec-2008 Intent Maggie A Spirometry ([id number])By: Alexy KEBEDE, On: 27-Dec-2008 Intent Maggie A Comments: good effort and curve has small airways diminished Radiology - Chest- PA and LatBy: On: 27-Dec-2008 Intent Alexy KEBEDE Maggie A Echo CompleteBy: Alexy KEBEDE Maggie A On: 08-Nov-2008 Intent Comments: elevated bp - increase patriica EKG (66159)By: Camelia Tracey DOa A On: 08-Nov-2008 Intent Comments: ekg showed normal sinus rhythym, leftl axis, no acute st/t wave changes rsr unchanged Bio Z ([id number])By: Maggie Tracey DO A On: 08-Nov-2008 Intent Inhaler Demo (33285)By: Melanie KEBEDE, On: 02-Sep-2008 Intent Doris Jay DO, DO, Kathleen Aerosol Treatment (17818)By: Melanie On: 02-Sep-2008 Intent Doris KEBEDE DO, Kathleen Comments: less echoey -- better less cough Doris Navarro DO EKG (67029)By: Doris Navarro DO On: 16-Dec-2007 Intent Doris [...] LSN TRNK/ARM/LEG On: 09-Jul-2007 Intent 0.6-1.0 CM (85187)By: Kimberley Loyd CNP BIOPSY OF SKIN LESION, SINGLE On: 09-Jul-2007 Intent ([id number])By: Kimberley Loyd CNP SHAVE SKIN LESION, TRUNK/ARM/LEG On: 02-Jul-2007 Intent ([id number])By: Kimberley Loyd CNP BIOPSY OF SKIN LESION, SINGLE On: 02-Jul-2007 Intent ([id number])By: Kimberley Loyd CNP B 12 Injection, 1000 mcg (J3420)By: On: 02-Jul-2007 Intent Jesus RUBIN, Lashonda FLU VAC, SPLIT, >3 YEARS, INTRAMUSC On: 04-Jun-2007 Intent ([id number])By: Jing Cabello RN Comments: Lot #: [id number] date: 01/03Amount given: 0.5 MLRoute: IMSite given: Left deltoidGiven by: Nathaniel Beal LPN IMMUNIZ ADMNIN, 1 VAC, SNGL/COMBO On: 04-Jun-2007 Intent ([id number])By: Jing Cabello RN B 12 Injection, 1000 [...] DO, Doris Melanie DO, Doris IV Infusion (15143)By: Melanie KEBEDE, On: 18-Oct-2006 Intent Doris Melanie DO, Doris Melanie DO, Doris EKG (41359)By: Doris Navarro DO On: 10-Oct-2006 Intent Melanie [...] Solution Ordered: 20-Jul-2016 Pending Melanie DO, Doris Melnaie DO, Doris Melanie DO, Doris Vitamin B-12 [...] MCG/ML Injection Solution Ordered: 25-Mar-2012 Pending [place] VP DATAMaricruz Armijo Vitamin B-12 1000 MCG/ML Injection Solution [...] The 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 Other providers contributing to [...] 13 steps at home. 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 The patient has noticed [...] and she off pravastatin and went to [place] and now on 5 mg of crestor- and tolerated she got leg pain and weakness on pravachol- - she got good [facility] on stroke and vascular in [place]- --bp is good and cough gone and [...] or put handrails in bathroom. The susan sism has completed the following preventative measures: PAP smear (2011), mammography (2013) and colonoscopy (unsure of timing). 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 The patient has noticed [...] not home- no gerd - went to [place] for artery checks and doing ok there- [...] [facility] .-she is [...] laboratory test results: [facility] Saw Dr Shruthi Quinones- ??head of [...] ER visit: note: (stroke she was at [facility] x 5days released on saturday05/22/12 to 05/27/12). The patient feels well with minor complaints, has decreased energy End: 29-May-2012 14:12 level and is sleeping well. Patient has been compliant with instructions. Current medication use: compliant with dosing regimen. Patient sleeps 7 hours per night. Nutrition: balanced diet and supplement al vitamins. Note for Follow up hospital: [facility] Diagnosis: CVA (434.91), Benign essential hypertension (401.1), Diabetes type II,controlled no comp (250.00), Hypothyroidism (244.9), Carotid stenosis (433.10) [facility] Office Visit On: 22-May-2012 10:33 Encounter Reason: Follow up hospital - Reason for ER visit: note: (TIA. ??Patient was seen by [facility] ER x 3 times last week and then sent to [facility] for psych eval.). 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
--- OUTSIDE RECORDS SUMMARY | 2018-08-20 04:59 | XMS RPT_ITS | Continuity of Care Document ---
:1940 Author Organization [facility] Address [address] [facility] [address] [place] [address] Phone Care Team Providers Name Role Phone Doris Navarro DO Unavailable Camacho Serrano Unavailable Flakito Morales Unavailable [facility], [facility] Unavailable Marcello Stein Unavailable Sal Urrutia Unavailable Maggie Tracey DO Unavailable Liza Duron Unavailable CARYN Khan Unavailable Unavailable Thelma Sofia Unavailable Unavailable Long aPtsy RUBIN Unavailable Unavailable Marcia Britton Unavailable Unavailable [...] artery stenosis (I65.23, 433.10) Comments: goes to [facility] yearly to follow Status: Active BMI [...] related to fatty liver -- 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 and wt loss / metformin and [...] Start : 26-Sep-2016 End : 12-Dec-2017 Inactive Brunswick 5-325 MG Oral Tablet 1 q 4hrs [...] : 07-Sep-2014 End : 13-Sep-2014 Discontinued ERGOCALCIFEROL, 47188RVJH (Oral Capsule) 1 (one) Capsule q week for 0 days Quantity: 12 {Capsule} Refills: 3 Ordered:19-Aug-2015 Alexy KEBEEDCameliaa A Start : 19-Aug-2015 End : 19-Aug-2015 [...] End : 23-Jun-2012 Discontinued VITAMIN D (ERGOCALCIFEROL), 00059KGAR (Oral Capsule) 1 Capsule q week for 0 days Quantity: 12 {Capsule} Refills: 2 Ordered:19-Aug-2015 Raiza Ortiz Start : 07-Apr-2013 End : 19-Aug-2015 Discontinued VITAMIN D, 88758XAZJ (Oral Capsule) 1 (one) Capsule q week [...] Department Summary Result: Comments: See Note; NOTES: [facility] Medical Records Department [address] [place] [address] Emergency Department Summary 05/14/18 0908 MR#: [id number] Acct: [id number] Name: MARICRUZ GRIGSBY Rep #: [id number] : 1940 78 From: Zee Denise MD [...] family doctors she is re ferred to [facility] for the shoulder injury and she will return for change in symptoms and she is comfortable with this plan Treatment Plan: [] Disposition: [] Stable home Impression: [] Fall left rib fracture, left shoulder injury This note was generated with [employer] software. It may contain incorrect words, spelling, [...] your Primary Care Provider. Call [facility] ([phone]) or report to the closest Emergency Room. Call 911 if necessary. 05/14/18 1530 <Electronically signed by Zee Denise MD> Date Zee Denise MD Cosigner Signatur e (If Indicated): Date CC: Doris Navarro DO 14-May-2018 Discharge Instruction Result: Comments: See Note; NOTES: [facility] Medical Records Department [address] [place] [address] Discharge Instruction 05/14/18 1133 MR#: [id number] Acct: [id number] Name: CLIFFORD HOBBSMARICRUZ THORNE Rep #: [id number] : 1940 78 From: Zee Denise MD PCP: Doris Navarro DO Status: REG ER ED Disposition - Plan for ED Patient: Chief Complaint: Fall Instructions: ED M echanical Fall, ED Fx Rib, ED Sprain Shoulder, ED Sling Prescriptions: Hydrocodone Bitart/Apap 5-325 [Brunswick 5MG-325MG] 1 tab PO Q6H PRN PRN 3 Days #10 tab PRN Reason: Pain Referrals: Doris Navarro DO [Primary Care Provider] - What to do if you have Problems For any increased pain, shortness of breath, bleeding, nausea or vomiting, chest pain, or any unexpected problems, contact your Primary Car e Provider. Call [facility] ([phone]) or report to the closest Emergency Room. Call 911 if necessary. 05/14/18 1134 <Electronically signed by Zee Denise MD> Date ___ Zee Denise MD Cosigner Signature (If Indicated): Date CC: Doris Navarro DO 14-May-2018 Chest PA and Lateral Result: Comments: See Note; NOTES: [facility] Imaging Services [address] [place] [address] Chest PA and Lateral MR#: [id number] Acct: [id number] Name: MARICRUZ GRIGSBY Rep #: [id number] : 1940 F 78 From: Teo Wayne MD PCP: Doris Navarro DO Status: REG ER Study: Chest PA and Lateral Date of Exam: 05/14/18 Exam# [id number] Ordering Dr: Zee Denise MD STUDY: X-RAY [...] eTo Wayne MD at 10:11 EDT Tel [phone], [employer] support , CC: MD Sonam Denise; Doris Navarro DO Home Health Care Physician: Signed 14-May-2018 Elbow min 3 Views Result: Comments: See Note; NOTES: [facility] Imaging Services [address] [place] [address] Elbow min 3 Views MR#: [id number] Acct: [id number] Name: MARICRUZ GRIGSBY Rep #: [id number] : 1940 F 78 From: Teo Wayne MD PCP: Doris Navarro DO Status: [facility] Study: Elbow min 3 Views Date of Exam: 05/14/18 Exam# [id number] Ordering Dr: Zee Denise MD STUD Y: [...] Teo Wayne MD at 10:12 EDT Tel [phone], Service support , CC: MD Sonam Denise; Doris Navarro DO Home Health Care Physician: Signed 14-May-2018 Shoulder min 2 Views Result: Comments: See Note; NOTES: [facility] Imaging Services [address] [place] [address] Shoulder min 2 Views MR#: [id number] Acct: [id number] Name: MARICRUZ GRIGSBY Rep #: [id number] : 1940 F 78 From: Teo Wayne MD PCP: Doris Navarro DO Status: REG ER Study: Shoulder min 2 Views Date of Exam: 05/14/18 Exam# [id number] Ordering Dr: Zee Denise MD STUDY: X-RAY [...] Wayne MD at 11:02 EDT Tel [phone], Service support , CC: MD Sonam Denise; Doris Navarro DO Home Health Care Physician: Signed 06-Feb-2018 History and Physical Exam Result: Comments: See Note; NOTES: [facility] Medical Records Department [address] [place] [address] History and Physical 02/06/182050 MR#: [id number] Acct: [id number] Name: MARICRUZ GRIGSBY Rep #: [id number] : 1940 77 From: María Barnes MD [...] cholecystectomy Psychiatric History: No pertinent psych hx 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 This note was generated with [employer] software. It may contain incorrect words, spelling, and punctuation that were not noted in checking the note before signing. Code Visit OBSV E AND M: 33347 Initial observation care L3 07/12/08 05 2108 <Electronically signed by María Barnes MD> Date María Barnes MD Cosigner Signature: Date (if applicable) CC: María Barnes; Doris Navarro DO Signed 06-Feb-2018 Brain/Head without Contrast Result: Comments: See Note; NOTES: [facility] Imaging Services [address] [facility] [place] [address] Brain/Head without Contrast MR#: [id number] Acct: [id number] Name: MARICRUZ GRIGSBY Rep #: [id number] : 1940 F 77 From: Renata Lee MD PCP: Doris Navarro DO Status: REG Study: Brain/Head without Contrast Date of Exam: 02/06/18 Exam# [id number] Ordering Dr: Cameron Marte MD STUDY: CT [...] , CC: Doris Navarro DO; Jered Marte Home Health Care Physician: Signed 06-Feb-2018 Chest 1 View Result: Comments: See Note; NOTES: [facility] Imaging Services [address] [place] [address] Chest 1 View MR#: [id number] Acct: [id number] Name: MARICRUZ GRIGSBY Rep #: [id number] : 1940 F 77 From: Renata Lee MD PCP: Doris Navarro DO Status: [facility] ER Study: Chest 1 View Date of Exam: 02/06/18 Exam# [id number] Ordering Dr: Jered Marte MD STUDY: X-RAY [...] , CC: Doris Navarro DO; Jered Marte Home Health Care Physician: Signed 25-Nov-2017 Liver Result: Comments: See Note; NOTES: [facility] Imaging Services [address] [place] [address] Liver MR#: [id number] Acct: [id number] Name: MARICRUZ GRIGSBY Stuart Rep #: [id number] : 1940 F 77 From: Mack Hand MD PCP: Doris Navarro DO Status: REG CLI Study: Liver Date of Exam: 11/25/17 Exam# [id number] Ordering Dr: Doris Navarro DO STUDY: ABDOMINAL [...] MD at 12:34 EDT , Service support [phone], CC: Doris Navarro DO Home Health Care Physician: Signed 29-Oct-2017 Hip 2-3 Views with Pelvis Result: Comments: See Note; NOTES: [facility] Imaging Services [address] [place] [address] Hip 2-3 Views with Pelvis MR#: [id number] Acct: [id number] Name: MARICRUZ GRIGSBY #: [id number] : 1940 F 77 From: Benji Finch PCP: Doris Navarro DO Status: REG CLI Study: Hip 2-3 Views with Pelvis Date of Exam: 10/29/17 Exam# [id number] Ordering Dr: Thelma Sofia 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- C STUDY: X-RAY - PELVIS [...] , CC: QUINN Sofia; Doris Navarro DO Home Health Care Physician: Signed 27-Aug-2017 12 Lead Electrocardiogram Result: Comments: See Note; NOTES: [facility] Cardiovascular Services [address] [place] [address] 12 Lead EKG 08/24/17 1719 MR#: [id number] Acct: [id number] Name: PORTIA GRIGSBY Rep #: [id number] : 1940 77 From: Maurilio Meraz MD [...] C onfirmed by SOLEDAD STREETER, MAURILIO ([id number]), pictures editor STACY CARTER (56) on 08/27/2017 10:37:34 AM Referred By: EITAN Confirmed By:MAURILIO MERAZ MD 08/27/17 1037 Date Maurilio Meraz MD CC: Doris Melanie KEBEDE Signed 25-Aug-2017 Emergency Department Summary Result: Comments: See Note; NOTES: [facility] Medical Records Department [address] [place] [address] Emergency Department Summary 08/24/17 1709 MR#: [id number] Acct: [id number] Name: MARICRUZ GRIGSBY Rep #: [id number] : 1940 77 From: Zee Denise MD [...] at home. She has no history of AR PE or DVT she does have history [...] be altered This note was generated with [employer] dictation software. It may contain incorrect words, [...] your Primary Care Provider. Call [facility] ([phone]) or report to the closest Emergency Room. Call 911 if necessary. 08/25/17 0001 <Electronically sig radha by Zee Denise MD> Date Zee Denise MD Cosigner Signature (If Indicated): Date CC: Doris Navarro DO 24-Aug-2017 Discharge Instruction Result: Comments: See Note; NOTES: [facility] Medical Records Department [address] [place] [address] Discharge Instruction 08/24/17 1820 MR#: [id number] Acct: [id number] Name: MARICRUZ GRIGSBY Rep #: [id number] : 1940 77 From: Zee Denise MD [...] problems, contact your Primary Care Provider. Call [facility] ([phone]) or report to the closest [facility] Room. Call 911 if necessary. 08/24/17 1821 <Electronically signed by Zee Denise MD> Date Zee Denise MD Cosign er Signature (If Indicated): Date CC: Doris Navarro DO 24-Aug-2017 Chest PA and Lateral Result: Comments: See Note; NOTES: [facility] Imaging Services [address] [place] [address] Chest PA and Lateral MR#: [id number] Acct: [id number] Name: MARICRUZ GRIGSBY Stuart Rep #: [id number] : 1940 F 77 From: Stacy Tapia MD PCP: Doris Navarro DO Status: REG ER Study: Chest PA and Lateral Date of Exam: 08/24/17 Exam# [id number] Ordering Dr: Zee Denise MD XR Chest [...] CC: MD Sonam Denise; Doris Navarro DO Home Health Care Physician: Signed 07-Aug-2017 Chest PA and Lateral Result: Comments: See Note; NOTES: [facility] Imaging Services [address] [place] [address] Chest PA and Lateral MR#: [id number] Acct: [id number] Name: CLIFFORD MARICRUZ CRUZ Rep #: [id number] : 1940 F 77 From: Teo Wayne MD PCP: Doris Navarro DO Status: REG CLI Study: Chest PA and Lateral Date of Exam: 08/07/17 Exam# [id number] Ordering Dr: Doris Navarro DO STUDY: X-RAY [...] Logan i, MD at 13:49 EST Tel [phone], Service support , CC: Doris Navarro DO Home Health Care Physician: Signed 20-Nov-2016 Operative Report Result: Comments: See Note; NOTES: [facility] Medical Records Department [address] [place] [address] Operative Report 11/14/16 0736 MR#: [id number] Acct: [id number] Name: MARICRUZ BREAUX Rep #: [id number] : 1940 76 From: Liza Duron DO PCP: Doris Navarro DO Status: [facility] Location: [facility] Report of Operation Date of Procedure: 11/14/16 Pre-Operative Diagnosi s: Right third and fourth trigger fingers Post-Operative Diagnosis: Name Surgery/Procedure Performed:: Right hand third and fourth A1 shannan release Type of Anesthesia:: Block,[place] Anesthesiologist: Fox Michaels Estimated Blood Loss (mL): [...] Dragon disclaimer This note was generated with [employer] dictation software. It may contain incorrect words, spellin g, and punctuation that were not noted in checking the note before signing. 11/20/16 1231 <Electronically signed by Liza Duron DO> Date Liza Duron DO CC: Liza Duron DO; Doris Navarro DO Signed 16-Nov-2016 Oncology Progress Note Result: Comments: See Note; NOTES: [facility] Medical Records Department [address] [facility] [address] Oncology Progress Note MR#: [id number] Acct: [id number] Name: PORTIA GRIGSBY Rep #: [id number] : 1940 76 From: Sal Urrutia MD [...] level. Sal Urrutia MD T: NTS JOB: [id number] 11/16/16 0850 <Electronically signed by Sal Urrutia MD> Date Sal Urrutia MD Cosigner Signature (If Indicated): Date CC: Date Dictated: 11/08/16 1305 Date Transcribed: 11/08/16 1305 Home Health Care Physician: Signed 14-Nov-2016 Discharge Instruction Result: Comments: See Note; NOTES: [facility] Medical Records Department [address] [place] [address] Instructions for Home/Discharge Instructions 11/14/16 0735 MR#: [id number] Acct: [id number] Name: MARICRUZ GRIGSBY Rep #: [id number] : 1940 76 From: Liza Duron DO [...] mg PO DAILY 11/09/16 Hydrocodone Bitart/Apap 5-325 [Brunswick 5MG- 325MG] 1 - 2 tablet PO Q6H PRN PRN #20 tablet 11/14/16 The following prescriptions were given: Hydrocodone Bitart/Apap 5- 325 [Brunswick 5MG-325MG] 1 - 2 tablet PO Q6H PRN PRN #20 tablet PRN Reason: Pain Primary Care Physician: Doris Navarro DO [Primary Care Provider] - Please Follow Up With: Liza Duron [phone] 11/14/16 0736 <Electronically signed by Liza Duron DO> Date Liza Duron DO CC: Doris Navarro DO 20-Jul-2016 Chest PA and Lateral Result: Comments: See Note; NOTES: [facility] Imaging Services [address] [place] [address] Verdana 4d Chest PA and Lateral MR#: [id number] Acct: [id number] Name: JAQUAN GRIGSBY Rep #: [id number] : 1940 F 76 From: Mack Hand MD PCP: Doris Navarro DO Status: REG CLI Study: Chest PA and Lateral Date of Exam: 07/20/16 Exam# [id number] Ordering Dr: Doris Navarro DO STUDY: X-RAY [...] at 12:24 EST Tel , Service support [phone], CC: Doris Navarro DO Home Health Care Physician: Signed 26-Jan-2016 Echocardiogram Complete Result: Comments: See Note; NOTES: [facility] Cardiovascular Services [address] [place] [address] Echo Complete 01/26/16 1008 MR#: [id number] Acct: [id number] Name: MARICRUZ PARMAR Rep #: [id number] : 1940 75 From: Mack Dickerson MD Attending Dr: Maggie Tracey DO Status: REG CLI Ordering Dr: Maggie Tracey DO Date: 01/26/16 Location: [facility] Sex: F C Admitt ed: Reason For [...] Physician: Maggie Tracey Performed By: Sharyn Bear [facility] 01/26/161611 Date ___ Mack Dickerson MD CC: Maggie Tracey DO Date Dictated: 01/26/16 1008 Date Transcribed: 01/26/161611 Home Health Care Physician: Signed 05-Dec-2015 Chest 1 View (Portable) Result: Comments: See Note; NOTES: [facility] Imaging Services [address] [place] [address] Verdana 4d Chest 1 View (Portable) MR#: [id number] Acct: [id number] Name: MARICRUZ PEÑALOZA Rep #: [id number] : 1940 F 75 From: Yari Garcia MD PCP: Maggie Tracey DO Status: PRE ER Study: Chest 1 View (Portable) Date of Exam: 12/05/15 Exam# [id number] Ordering Dr: Johnnie Baez MD STUDY: X-RAY [...] at 16:44 EDT Tel , Service support [phone], RAD/Chest 1 V iew (Portable) IMPRESSION: Underexpansion of the lungs. Mild to moderate cardiomegaly. Electronically Signed: Yari Garcia MD at 16:44 EDT Tel , Service support [phone], CC: Maggie Tracey DO; Johnnie Baez MD Home Health Care Physician: Signed 05-Dec-2015 Spirometry (05735) Comments: good effort and curvenormal Result: 05-Dec-2015 EKG (70909) Comments: ekg showed normal sinus rhythym, normal axis, no acute st/t wave changes Result: [MEASUREMENTS ANALYSIS] Date of Test: 12/05/2015 14:27:41; Heart Rate: 93; FL Interval: 202; QRS: 96; QT Interval: 352; Corrected QT Interval (QTc): 409; P Wave [place]: 48; QRS Wave [place]: -26; T Wave [place] : 55; Blood Pressure: 134/64 [ECG DIAGNOSTIC STATEMENTS] Date of Test: 12/05/2015 14:27:41; Summary: Sinus Rhythm WITHIN NORMAL LIMITS 21-Sep-2015 12 Lead Electrocardiogram Result: Comments: See Note; NOTES: [facility] Cardiovascular Services [address] [place] [address] 12 Lead EKG 09/19/15 0908 MR#: [id number] Acct: [id number] Name: MARICRUZ VIGIL Rep #: [id number] : 1940 75 From: Maurilio Meraz MD [...] wave progression Confirmed by SOLEDAD STREETER, MAURILIO ([id number]), pictures editor STACY CARTER (56) on 09/21/2015 11:27:40 AM Referred By: JE Confirmed By:MAURILIO MERAZ MD 1127 Date Maurilio Meraz MD CC: Maggie Tracey DO Date Dictated: 09/19/15907 Date Transcribed: 09/19/15907 Home Health Care Physician: Signed 19-Sep-2015 Discharge Instruction Result: Comments: See Note; NOTES: [facility] Medical Records Department [address] [place] [address] Discharge Instruction 09/19/15 1020 MR#: [id number] Acct: [id number] Name: MARICRUZ GRIGSBY Rep #: [id number] : 1940 75 From: Johnnie Baez MD [...] chest pain, or any unexpected problems, contact [facility] doctor. Call [facility] Registry ([phone]) or report to the closest Emergency Room. Call 911 if necessary. 09/19/15 1755 <Electronically signed by Johnnie Baez MD> Date __ Johnnie Baez MD Cosigner Signature (If Indicated): Date CC: Maggie Tracey DO 19-Sep-2015 Emergency Department Summary Result: Comments: See Note; NOTES: [facility] Medical Records Department [address] [facility] [address] Emergency Department Summary MR#: [id number] Acct: [id number] Name: MARICRUZ GRIGSBY Rep #: [id number] : 1940 75 From: Johnnie Baez MD [...] tachycardia at 112. No acute signs of AR or ischemia. White count 11.4, H and [...] C: Maggie Tracey DO T: CHERI JOB: [id number] 09/19/15 0618 <Electronically signed by Johnnie Baez MD& amp;#62; Date Johnnie Baez MD Cosigner Signature (If Indicated): Date CC: Maggie Tracey DO Date Dictated: 09/19/15 1019 Date Transcribed: 09/19/151018 Home Health Care Physician: Signed 07-Sep-2015 Chest PA and Lateral Result: Comments: See Note; NOTES: [facility] Imaging Services [address] [place] [address] Verdana 4d Chest PA and Lateral MR#: [id number] Acct: [id number] Name: MARICRUZ HADLEY Rep #: [id number] : 1940 F 75 From: Kali Raymundo MD PCP: Maggie Tracey DO Status: REG CLI Study: Chest PA and Lateral Date of Exam: 09/07/15 Exam# [id number] Ordering Dr: Maggie Irwin DO STUDY: X-RAY [...] FACR at 11:41 EST , Service support [phone], RAD/Chest PA and Lateral IMPRESSION: No significant changes. Stable moderate cardiomegaly. Bilateral interstitial changes more prominent on the right. Wanda velazquez Signed: Kali Raymundo MD, FACR at 11:41 EST , Service support [phone], CC: Maggie Tracey DO Home Health Care Physician: Signed 07-Sep-2015 Spirometry (92024) Comments: good effort and curve normal Result: 24-Mar-2015 PT Discharge Summary Result: Comments: See Note; NOTES: [facility] Physical Therapy [facility] [address] [place] [address] Fax REHABILITATION SERVICES DISCHARGE SUMMARY MR#: [id number] Acct: [id number] Name: MARICRUZ GRIGSBY Rep #: [id number] : 1940 75 From: Yuni Clark Referring [...] discharge. Yuni Clark, PT T: NTS JOB: [id number] <Electronically signed by Yuni Clark > 03/24/15 1227 CC: Maggie Tracey DO Signed 17-Feb-2015 Inital Evaluation - PT Result: Comments: See Note; NOTES: [facility] Physical Therapy [facility] [address] [place] [address] Fax REHABILITATION SERVICES INITIAL EVALUATION MR#: [id number] Acct: [id number] Name: MARICRUZ GRIGSBY Rep #: [id number] : 1940 75 From: Yuni Clark Referring Dr.: Maggie Tracey DO Status: REG RCR Insurance : MEDICARE PART A B Eval Date: [facility] DATE OF SERVICE: 02/16/2015 SUBJECTIVE: This [...] care. Yuni Clark, PT T: NTS JOB: [id number] <Electronically signed by Yuni Clark > 02/17/15 1011 CC: Signed For Medicare only, by seng yao this I certify the plan of care. Physicians Signature Date 08-Feb-2015 L/S Spine Min 4 Views Result: Comments: See Note; NOTES: [facility] Imaging Services [address] [place] [address] Radiology Report MR#: [id number] Acct: [id number] Name: CLIFFORD HOBBSMARICRUZ THORNE Rep #: [id number] : 1940 F 74 From: Teo Wayne MD PCP: Maggie Tracey DO Status: REG CLI Study: L/S Spine Min 4 Views Date of Exam: 02/08/15 Exam# [id number] Ordering Dr: Maggie Tracey DO STUDY: X-RAY [...] Wayne MD a t 12:30 EDT Tel [phone], Service support [phone], RAD/L/S Spine Min 4 Views IMPRESSION: Degenerative changes of the spine, as detailed above. Electro nically Signed: Teo Wayne MD at 12:30 EDT Tel [phone], Service support [phone], CC: Maggie Tracey DO Home Health Care Physician: Signed 15-Nov-2014 Thyroid Result: Comments: See Note; NOTES: [facility] Imaging Services [address] [place] [address] Ultrasound Report MR#: [id number] Acct: [id number] Name: MARICRUZ GRIGSBY Rep #: [id number] : 1940 F 74 From: Julián Trivedi DO PCP: Maggie Tracey DO Status: REG CLI Study: Thyroid Date of Exam: 11/15/14 Exam# [id number] Ordering Dr: Maggie Tracey DO STUDY: THYROID [...] Julián Trivedi DO at 16:51 EDT Tel [phone], Service support [phone], Fax CC: Maggie Tracey DO Home Health Care Physician: Signed 13-Sep-2014 Chest PA and Lateral Result: Comments: See Note; NOTES: [facility] Imaging Services [address] [place] [address] Radiology Report MR#: [id number] Acct: [id number] Name: MARICRUZ GRIGSBY Rep #: [id number] : 1940 F 74 From: Donato Abdi MD PCP: Maggie Tracey DO Status: REG CLI Study: Chest PA and Lateral Date of Exam: 09/13/14 Exam# [id number] Ordering Dr: Maggie Tracey DO STUDY: X [...] at 12:01 EST Tel , Service support [phone], CC: Maggie Tracey DO Home Health Care Physician: Signed 15-Jul-2014 Chest PA and Lateral Result: Comments: See Note; NOTES: [facility] Imaging Services [address] [place] [address] Radiology Report MR#: [id number] Acct: [id number] Name: CLIFFORD CRUZJAQUANMARICRUZ Rep #: [id number] : 1940 F 74 From: Teo Wayne MD PCP: Maggie Tracey DO Status: REG CLI Study: Chest PA and Lateral Date of Exam: 07/15/14 Exam# [id number] Ordering Dr: Maggie Tracey DO SANDI DY: [...] Teo Wayne MD at 9:42 EST Tel [phone], Service support [phone], CC: Maggie Tracey DO Home Health Care Physician: Signed 10-May-2014 Bilat Scrn Digital & CAD Result: Comments: See Note; NOTES: [facility] Imaging Services [address] [place] [address] Breast Imaging Report MR#: [id number] Acct: [id number] Name: JOSE AMARICRUZ GIANG ep #: [id number] : 1940 F 74 From: Gene Phillips PCP: Maggie Tracey DO Status: REG CLI Exam# [id number] Ordering Dr: Maggie Tracey DO MAMMOGRAPHY - [...] these results will be sent to the [facility] ient by the facility within 30 days. Approximately 10% of breast cancers are not detected by mammography. A normal mammogram should not delay biopsy of a clinically suspicious abnormality. Electro nically Signed: Jessenia Phillips MD at 19:48 EDT Tel , Service support [phone], CC: Maggie Tracey DO Home Health Care Physician: Signed 10-Sep-2013 Dexa Bone Density Study (HP) Result: Comments: See Note; NOTES: [facility] Imaging Services [address] [place] [address] Bone Density Report MR#: [id number] Acct: [id number] Name: MARICRUZ GRIGSBY Rep #: [id number] : 1940 F 73 From: Teo Wayne MD PCP: Maggie Tracey DO Status: REG CLI Study: Dexa Bone Density Study (HP) Date of Exam: 09/10/13 Exam# [id number] Ordering Dr: Maggie Tracey DO STUDY: DUAL [...] M.D. at 11:04 EST , Service support [phone], CC: Maggie Tracey DO Home Health Care Physician: Signed Immunization Name Dates Details Influenza (3 years and up) on: 04-Jun-2007 Comments: Lot #: [id number] date: 01/03Amount given: 0.5 MLRoute: IMSite given: Left deltoidGiven by: Nathaniel Beal LPN Influenza (3 years and up) on: 12-May-2009 Comments: Lot #[id number]-left deltoidgiven by:CDH Family History Unknown Family Member Name Dates Details Cancer Status: Active Diabetes Mellitus Status: Active Father Comments: AR, hypercholesterolemia Status: Active First Degree Relatives Comments: [...] kg/m2 Body Surface Area Calculated 2.06 m2 65-Fot-955631:15 Pulse 81 /min Comments: Pattern: Regular Respiration [...] kg/m2 Body Surface Area Calculated 2.06 m2 93-Opo-174050:32 Temperature 97.6 f Comments: Method: Temporal Pulse [...] kg/m2 Body Surface Area Calculated 2.06 m2 9-Tfg-052915:26 Comments: orthostatic bp assessment: 12:10pmlying- 170/90 76hrsitting- [...] administered 81mg asa orally at this time also-[facility] BP Systolic 156 mm[Hg] Comments: Patient Position: [...] Value Details :50 Rapid Strep Test, Office (54249) Rapid Strep Test, Office Negative (Normal) :58 TSH (54273) Comments: PATIENT NOT FASTINGPERFORMED BY: Te[facility] OrbitSturgis Hospital6370 [facility] [id number] TSH 5.590 {uIU/mL} (Abnormal) Range: 0.450-4.500 :58 T4, FREE (THYROXINE) (92039) Comments: PATIENT NOT FASTINGPERFORMED BY: ConnectToHomeSaint Barnabas Medical CenterVhouqn4582 [facility] [id number] T4,Free(Direct) 1.81 ng/dL (Abnormal) Range: 0.82-1.77 :58 T3, FREE (TRIDOTHYRONINE) (59420) Comments: PATIENT NOT FASTINGPERFORMED BY: Teal OrbitSturgis Hospital6370 [facility] [id number] Triiodothyronine (T3), Free 2.1 pg/mL (Normal) Range: [...] Muscle ABS Comments: Comments: ANTI-LIVER/KIDNEY MICRO AB [id number] [facility] (refer to report for specific site)refer [...] MELI-DIRECT Negative (Normal) Comments: Performed at: - [facility] [id number] Director: Constantine Christianson PhD, Phone: [phone] Ceruloplasmin Comments: Comments: ANTI-LIVER/KIDNEY MICRO AB [id number] [facility] (refer to report for specific site)refer to report for address and phone number CERULOPLAS 1560 22.0 mg/dL (Normal) Range: 19.0-39.0 :44 CMV Acute Antibody IgM Comments: Comments: ANTI-LIVER/KIDNEY MICRO AB [id number] [facility] (refer to report for specific site)refer to report for address and phone number CMVIgM AB < 30.0 AU/mL (Normal) Range: 0.0-29.9 Comments: Negative <30.0 Equivocal 30.0 - 34.9 Positive >34.9A positive result is generally indicative of acuteinfection, reactivation or persistent IgM production. :44 Ferritin Comments: Comments: ANTI-LIVER/KIDNEY MICRO AB [id number] SER/[facility] Ekpvlhtprb4578 [place], [address] FERRITIN 236 ng/mL (Normal) Range: 8-252 :44 Free T3 Comments: Comments: ANTI-LIVER/KIDNEY MICRO AB [id number] SER/[facility] Gxmgwjbkds7810 [place], [address] FREE T3 1.6 pg/mL (Abnormal) Range: 2.18-3.98 :44 GGTP 64 U/L (Abnormal) Comments: Comments: ANTI-LIVER/KIDNEY MICRO AB [id number] SER/[facility] [address]fulj[address] [place], [address] Range: 5-55 :44 Hepatitis Panel Acute Comments: Comments: ANTI-LIVER/KIDNEY MICRO AB [id number] [facility] (refer to report for specific site)refer to report for address and phone number HEP C AB <0.1 {s/co_ratio} (Normal) Range: 0.0-0.9 Comments: Negative: < 0.8 Indeterminate: 0.8 - 0.9 Positive: > 0.9 The CDC recommends that a positive HCV antibody result be followed up with a HCV Nucleic Acid Amplification test (877064). HB CORE [id number] Negative (Normal) HB SURF AG Negative (Normal) HEP A IgM 6734 Negative (Normal) :44 Liver Profile Comments: Comments: ANTI-LIVER/KIDNEY MICRO AB [id number] SER/[facility] Dabbwppoxb[address] [place], [address] D BILI 0.17 mg/dL (Normal) Range: 0.00-0.30 T BILI 0.60 mg/dL (Normal) Range: 0.20-1.00 ALT 48 U/L (Normal) Range: 13-56 ALK P 93 U/L (Normal) Range: 45-117 AST 43 U/L (Abnormal) Range: 15-37 GLOB 3.5 g/dL (Normal) Range: 2.2-4.2 ALB 3.7 g/dL (Normal) Range: 3.2-5.0 T PROT 7.2 g/dL (Normal) Range: 6.4-8.2 :44 Miscellaneous Lab Procedure Comments: Comments: ANTI-LIVER/KIDNEY MICRO AB [id number] SER/RFTest(s) Ordered: ANTI-LIVER/KIDNEY MICROS AB [id number] SER/[facility] Iegwxidclh5591 [place], [address] MISC Comments: TEST RESULT UNITS REF INTERVALLiver- Kidney Microsomal Ab <1.0 Units 0.0 - 20.0 Negative 0.0 - 20.0 LAB (Normal) Equivocal 20.1 - 24.9 Positive >24.9LKM type 1 antibodies are detected in patients withautoimmune hepatitis type 2 and in up to 8% ofpatients wi TEST th chronic HCV infection. TEST[facility] AT [facility]. ORIGINAL REPORT ON FILE IN LAB CONTAINS ADDITIONAL TEST SITE INFORMATION. :44 T4 Free Direct Comments: Comments: ANTI-LIVER/KIDNEY MICRO AB [id number] SER/[facility] R[address]uc[address]pt[address] [place] [address], [id number] T4 FREE DIRECT 1.06 ng/dL (Normal) Range: 0.76-1.46 :44 Thyroid Stim Hormone (TSH) Comments: Comments: ANTI-LIVER/KIDNEY MICRO AB [id number] [facility] Bdgiggatny9411 [place], [address] TSH 16.40 {uIU/mL} (Abnormal) Range: 0.358-3.74 :44 Transferrin Comments: Comments: ANTI-LIVER/KIDNEY MICRO AB [id number] [facility] (refer to report for specific site)refer to report for address and phone number TRANSFERRN 4284 250 mg/dL (Normal) Range: 200-370 Comments: Performed at: [address] [id number] Director: Constantine Christianson PhD, Phone: [phone] 98-Ppg-051342:16 Bedside Glucose Comments: [facility] LaboratoryPoint of [address] [address] BEDSIDE GLU 152 mg/dL (Abnormal) Range: 70-110 Comments: MANAGEMENT OF PATIENT CARE PER NURSING PROTOCOL 00-Khf-957092:45 Basic Metabolic Profile (BMP) Comments: [facility] Ybvdcocnye[address] [place], [place], [id number] GAP 8 (Normal) Range: 5-15 CO2 28.0 [...] A.D.A. criteria.Please note revised GLUCOSE reference range hqjpxefeq01/02/2018. 13-Scw-954467:45 CBC W/Diff, Automated Comments: [facility] Ngsstthais[address] [place], [place], [address] Absolute Lymph 1.73 {X10_3/ul} (Normal) Range: 0.83-4.51 [...] 4.2-5.4 WBC 9.5 K/mm3 (Normal) Range: 4.4-11.0 90-Ndn-681538:45 Partial Thromboplast Time Comments: [facility] Fzrmuixaot9342 [place], [address] PTT 33.0 s (Normal) Range: 24.1-36.2 47-Dwn-248708:45 Prothrombin Time w/INR Comments: [facility] Qdqrbjjhgl1631 [facility] [place], [address] INR 0.9 (Normal) PROTIME 12.5 s (Normal) Range: 11.7-14.9 84-Zgk-036477:45 Troponin-I Comments: [facility] Hllxkkupee1133 [facility] [place], [address] TROPONIN-I < 0.015 ng/mL Comments: TROPONIN-I EXPECTED VALUES <0.045 Negative 0.045 - 0.590 Consistent with Cardiac Damage > OR = 0.600 Critical Value Not every elevated troponin is indicative of AR. T (Normal) hesevalues should be used with clinical judgement in examiningthe patient's clinical picture for diagnosis. To establisha diagnosis of AR versus myocardial injury, there must be ademonstrated rise and/ or fall in the troponin values, inaddition to ischemic symptoms, EKG changes, new regionalwall motion abnormality, and/or angiographical evidence. PLEASE NOTE: REFERENCE RANGES EDITED 17 Liver-Kidney <1.0 {Units} Comments: PATIENT NOT FASTINGPERFORMED BY: [employer] Pskult2159 [facility] [id number] 2:14 Microsomal Ab (Normal) Range: 0.0-20.0 Comments: Negative 0.0 - 20.0 Equivocal 20.1 - 24.9 Positive >24.9 . LKM type 1 antibodies are detected in patients with autoimmune hepatitis type 2 and in up to 8% of patients with chronic HCV infection. 53-Fxp-911361:14 HEPATIC FUNCTION PANEL Comments: PATIENT NOT FASTINGPERFORMED BY: Aud[facility]6370 [facility] [id number] (65115) ALT (SGPT) 49 [iU]/L (Abnormal) Range: 0-32 AST (SGOT) 57 [iU]/L (Abnormal) Range: 0-40 Alkaline Phosphatase 100 [iU]/L (Normal) Range: 39-117 Bilirubin, Direct 0.14 mg/dL (Normal) Range: 0.00-0.40 Bilirubin, Total 0.4 mg/dL (Normal) Range: 0.0-1.2 Albumin 4.1 g/dL (Normal) Range: 3.5-4.8 Protein, Total 6.8 g/dL (Normal) Range: 6.0-8.5 84-Ndw-877512:14 HEPATITIS PANEL (89499) Comments: PATIENT NOT FASTINGPERFORMED BY: [facility] Zqmdfy1923 [facility] [id number] Hep C Virus Ab <0.1 {s/co_ratio} (Normal) Range: 0.0-0.9 Comments: Negative: < 0.8 Indeterminate: 0.8 - 0.9 Positive: > 0.9 . The CDC recommends that a positive HCV antibody result be followed up with a HCV Nucleic Acid Amplification test (120897). Hep B Core Ab, IgM Negative (Normal) HBsAg Screen Negative (Normal) Hep A Ab, IgM Negative (Normal) 23-Lys-950547:14 ANTIMITOCHONDRIAL ANTIBODY Comments: PATIENT NOT FASTINGPERFORMED BY: [facility]bitUniversity [facility] Lxzizf4945 [facility] [id number] (05725) Mitochondrial (M2) Antibody <20.0 {Units} (Normal) Range: 0.0-20.0 Comments: Negative 0.0 - 20.0 Equivocal 20.1 - 24.9 Positive >24.9 . Mitochondrial (M2) Antibodies are found in 90-96% of patients with primary biliary cirrhosis. 11-Kab-925008:14 TRANSFERRIN (33506) Comments: PATIENT NOT FASTINGPERFORMED BY: [facility]6370 [facility] [id number] Transferrin 226 mg/dL (Normal) Range: 200-370 72-Hva-791427:14 GGT (GAMMA GLUTAMYLTRANSFERASE) Comments: PATIENT NOT FASTINGPERFORMED BY: [facility]6370 [facility] [id number] (26033) GGT 59 [iU]/L (Normal) Range: 0-60 34-Ivc-839715:14 FERRITIN (76747) Comments: PATIENT NOT FASTINGPERFORMED BY: [facility] Mmhgvp1329 [facility] [id number] Ferritin, Serum 545 ng/mL (Abnormal) Range: 15-150 61-Izo-567602:14 CMV IGM ANTBDY (72159) Comments: PATIENT NOT FASTINGPERFORMED BY: [facility] Tqxvil9801 [facility] [id number] Cytomegalovirus (CMV) Ab, IgM <30.0 AU/mL (Normal) Range: 0.0-29.9 Comments: Negative <30.0 Equivocal 30.0 - 34.9 Positive >34.9 A positive result is generally indicative of acute infection, reactivation or persistent IgM production. 02-Zxv-814488:14 CERULOPLASMIN (70325) Comments: PATIENT NOT FASTINGPERFORMED BY: [facility] Llqhre9226 [facility] [id number] Ceruloplasmin 26.3 mg/dL (Normal) Range: 19.0-39.0 63-Xtq-924440:14 ASM (ANTI SMOOTH MUSCLE Comments: PATIENT NOT FASTINGPERFORMED BY: CORTEZ Griffin Czrjld4050 [facility] [place] [id number] ANTIBODY) (16193) Actin (Smooth Muscle) Antibody 5 {Units} (Normal) Range: 0-19 Comments: Negative 0 - 19 Weak positive 20 - 30 Moderate to strong positive >30 . Actin Antibodies are found in 52-85% of patients with autoimmune hepatitis or chronic active hepatitis and in 22% of patients with primary biliary cirrhosis. 89-Qkk-183627:14 MELI (ANTINUCLEAR ANTIBODY) Comments: PATIENT NOT FASTINGPERFORMED BY: CORTEZ Teal OrbitUniversity [facility] Missouri [facility] Mpuodo5775 [facility] [id number] (65790) MELI Direct Negative (Normal) 15-Ahl-469851:33 HgA1C , Office (17324) HgA1C , Office 7.2 % (Abnormal) Range: 4.6 - 7.1 56-Uqm-778783:38 MELI (ANTINUCLEAR ANTIBODY) Comments: PATIENT NOT FASTINGPERFORMED BY: LabUniversity [facility] Jarruc9290 [facility] [id number] (80279) MELI Direct Negative (Normal) 93-Eai-691851:38 VITAMIN B-12 (CYANOCOBALAMIN) Comments: PATIENT NOT FASTINGPERFORMED BY: Teal OrbitUniversity [facility] Erxxup8825 [facility] [id number] (91244) Vitamin B12 463 pg/mL (Normal) Range: 232-1245 08-Txj-219345:38 TSH (70572) Comments: PATIENT NOT FASTINGPERFORMED BY: LabUniversity [facility] Degcon2039 [facility] [id number] TSH 0.062 {uIU/mL} (Abnormal) Range: 0.450-4.500 93-Rjm-547675:38 SED RATE ERYTHROCYTE (09941) Comments: PATIENT NOT FASTINGPERFORMED BY: CORTEZ [facility] Ephyjp7837 [facility] [id number] Sedimentation Rate-Westergren 7 mm/h (Normal) Range: 0-40 61-Irr-505567:38 METABOLIC PANEL, COMPREHENSIVE Comments: PATIENT NOT FASTINGPERFORMED BY: [facility] Kjstor9955 [facility] [id number] (26043) ALT (SGPT) 52 [iU]/L (Abnormal) Range: 0-32 [...] 8-27 Glucose 134 mg/dL (Abnormal) Range: 65-99 00-Fgf-748050:38 C-REACTIVE PROTEIN (15649) Comments: PATIENT NOT FASTINGPERFORMED BY: LabCoSaint Barnabas Medical CenterUcbfzp9296 [facility] [id number] C-Reactive Protein, Quant 4.8 mg/L (Normal) Range: 0.0-4.9 66-Ogo-824339:38 CBC (AUTO) (42857) Comments: PATIENT NOT FASTINGPERFORMED BY: LabCoSaint Barnabas Medical CenterOmtxol6270 [facility] [id number] Platelets 248 {x10E3/uL} Range: 150-379 (Normal) RDW [...] mg/L (Abnormal) Comments: PATIENT NOT FASTINGPERFORMED BY: [employer] [facility] [id number] BY: [address] [id number] 2:25 Serum Range: 0.6-2.4 Comments: Siemens Squareulite 2000 Immunochemiluminometric assay (ICMA) 4-Btp-200427:25 Immunoglobulins Comments: PATIENT NOT FASTINGPERFORMED BY: [facility]lin6370 [facility] [id number] BY: [facility]Home[address] [id number] Iga/Ige/Igg/Igm (GAME) (75461) Immunoglobulin E, Total 259 {IU/mL} (Abnormal) Range: 0-100 Immunoglobulin M, Qn, Serum 113 mg/dL (Normal) Range: 26-217 Immunoglobulin A, Qn, Serum 130 mg/dL (Normal) Range: 64-422 Immunoglobulin G, Qn, Serum 837 mg/dL (Normal) Range: 700-1600 7-Bby-890402:25 LDH (LD) (LACTATE Comments: PATIENT NOT FASTINGPERFORMED BY: [employer] [id number] BY: [address] [id number] DEHYDROGENASE) (05686) LDH 195 [iU]/L (Normal) Range: 119-226 7-Ajk-974319:25 METABOLIC PANEL, Comments: PATIENT NOT FASTINGPERFORMED BY: ConnectToHomeStephanie Ville 0747970 [facility] [id number] BY: Teal Or[address] [id number] COMPREHENSIVE (58129) ALT (SGPT) 47 [iU]/L (Abnormal) Range: 0-32 [...] 8-27 Glucose 139 mg/dL (Abnormal) Range: 65-99 7-Iqe-466037:25 CBC, PLATELETS & AUT DIFF Comments: PATIENT NOT FASTINGPERFORMED BY: ConnectToHomeStephanie [place]ille 0747970 [facility] [id number] BY: Teal Or[address] [id number] (07309) Immature Grans (Abs) 0.0 {x10E3/uL} (Normal) Range: [...] 3.77-5.28 WBC 7.2 {x10E3/uL} (Normal) Range: 3.4-10.8 98-Uml-256083:28 Microscopic Examination Comments: PATIENT NOT FASTINGPERFORMED BY: PacketmotionAtrium Health [facility]ly [id number] Bacteria None seen (Normal) Mucus Threads Present (Normal) Cast Type Hyaline casts (Normal) Casts Present {/lpf} (Abnormal) Epithelial Cells (non renal) 0-10 {/hpf} (Normal) Range: 0 - 10 RBC 0-2 {/hpf} (Normal) Range: 0 - 2 WBC >30 {/hpf} (Abnormal) Range: 0 - 5 00-Jft-368556:24 URINE RANI CULTURE-RADHA COL Comments: PATIENT NOT FASTINGPERFORMED BY: [employer] MaintenanceNetAtrium Health [facility]ly [id number] Information: SRC:UC COUNT (68569) Antimicrobial MIHEAD (Normal) Comments: S = Susceptible; I = Intermediate; R = Resistant P = Positive; N = Negative MICS are expressed in micrograms per mL Antibiotic RSLT#1 RSLT#2 RS Susceptibility LT#3 RSLT#4Amoxicillin/Clavulanic Acid SAmpicillin RCefepime SCeftriaxone SCefuroxime SCephalothin SCiprofloxacin SGentamicin SImipenem SNitrofurantoin SPiperacillin RTetracycline STobram ycin STrimethoprim/Sulfa S Result 1 Raoultella Comments: 5,000 Colonies/mL planticola (Abnormal) Urine Final report Culture,Comprehensive (Abnormal) 33-Jgb-681891:28 MICROALBUMIN: CREATININE RATIO Comments: PATIENT NOT FASTINGPERFORMED BY: ConnectToHomeSaint Barnabas Medical CenterWhykiw7571 [facility] [id number] (38659) AND (71453) Alb/Creat Ratio 215.8 {mg/g_creat} (Abnormal) Range: 0.0-30.0 Albumin, Urine 245.4 ug/mL (Normal) Creatinine, Urine 113.7 mg/dL (Normal) 77-Sap-563726:28 URINALYSIS, W/ MICRO (59225) Comments: PATIENT NOT FASTINGPERFORMED BY: Teal OrbitSturgis Hospital6370 [facility] [id number] Microscopic Examination See below: (Normal) Comments: Microscopic was indicated and was performed. Nitrite, Urine Negative (Normal) Urobilinogen,Semi-Qn 0.2 mg/dL (Normal) Range: 0.2-1.0 Bilirubin Negative (Normal) Occult Blood Negative (Normal) Ketones Negative (Normal) Glucose Trace (Abnormal) Protein 1+ (Abnormal) WBC Esterase 1+ (Abnormal) Appearance Clear (Normal) Urine-Color Yellow (Normal) pH 5.5 (Normal) Range: 5.0-7.5 Specific Bryant 1.025 (Normal) Range: 1.005-1.030 94-Rar-589897:28 METABOLIC PANEL, COMPREHENSIVE Comments: PATIENT NOT FASTINGPERFORMED BY: [place] 3812670 [facility] [id number] (05311) ALT (SGPT) 37 [iU]/L (Abnormal) Range: 0-32 [...] Glucose, Serum 179 mg/dL (Abnormal) Range: 65-99 72-Ekq-110716:28 CBC, PLATELETS & AUT DIFF Comments: PATIENT NOT FASTINGPERFORMED BY: [facility] Nchwjw6032 [facility] [id number] (27524) Immature Grans (Abs) 0.0 {x10E3/uL} (Normal) Range: [...] 3.77-5.28 WBC 9.3 {x10E3/uL} (Normal) Range: 3.4-10.8 44-Xtn-771021:28 TSH (THYROID STIMULATING Comments: PATIENT NOT FASTINGPERFORMED BY: ConnectToHomeSaint Barnabas Medical CenterJlffcm9721 [facility] [id number] HORMONE) (33546) TSH 23.220 {uIU/mL} (Abnormal) Range: 0.450-4.500 49-Oay-018077:28 LIPID PANEL (32208) Comments: PATIENT NOT FASTINGPERFORMED BY: ConnectToHomeSaint Barnabas Medical CenterGkjqtp8039 [facility] [id number] LDL/HDL Ratio 1.7 {ratio_units} (Normal) Range: 0.0-3.2 Comments: LDL/HDL Ratio Men Women 1/2 Avg.Risk 1.0 1.5 Av g.Risk 3.6 3.2 2X Avg.Risk 6.2 5.0 3X Avg.Risk 8.0 6.1 LDL Cholesterol Calc 83 mg/dL (Normal) Range: 0-99 VLDL Cholesterol Priscilla 42 mg/dL (Abnormal) Range: 5-40 HDL Cholesterol 48 mg/dL (Normal) Triglycerides 208 mg/dL (Abnormal) Range: 0-149 Cholesterol, Total 173 mg/dL (Normal) Range: 100-199 74-Vzl-065981:28 CALCIFEDIOL (08207) Comments: PATIENT NOT FASTINGPERFORMED BY: [facility] Rprswj0635 [place] [id number] Vitamin D, 25-Hydroxy 25.4 ng/mL (Abnormal) Range: 30.0-100.0 Comments: Vitamin D deficiency has been defined by the [place] ofMedicine and an Endocrine Society practice guideline as alevel of serum 25-OH vitamin D less than 20 ng/mL (1,2).The Endocrine Society went on to further define vitamin Dinsufficiency as a level between 21 and 29 ng/mL (2).1. IOM ([place] of Medicine). 2010. Dietary reference intakes for calcium and D. [place]: The National Academies Press.2. Rachel MF, Yael MRALEY, Dunia HERRERA, et al. Evaluation, treatment, and prevention of vitamin D deficiency: an Endocrine Society clinical practice guideline. JCEM. 2010; 96(7):1911-30. 17-Gdi-902924:40 Basic Metabolic Profile (BMP) Comments: 'TROP' Serial specimen #1, #2, #3, or #4: [address] [place] [address] [address]sy[address] [place], [address] GAP 11 (Normal) Range: 5-15 CO2 24.0 [...] 126 mg/dLsuggests DIABETES MELLITUS per A.D.A. criteria. 50-Wry-730256:40 BNP,B-Type NATRIURETIC PEPTIDE Comments: [facility] Hjsnuxtsnr[address] [place], [place], [address] B-TYPE SANJU PEP 13.3 pg/mL (Normal) Range: 0-100 14-Hif-055802:40 CBC W/Diff, Automated Comments: [facility] Tdkfjhvqtc[address] [place], [place], [address] Absolute Lymph 1.65 {X10_3/ul} (Normal) Range: 0.83-4.51 [...] 4.2-5.4 WBC 4.1 K/mm3 (Abnormal) Range: 4.4-11.0 71-Cik-931529:40 Troponin-I Comments: 'TROP' Serial specimen #1, #2, #3, or #4: [address] [place] [address] Ragjievmjm[address] [place], [address] TROPONIN-I < 0.02 ng/mL (Normal) Comments: TROPONIN-I EXPECTED VALUES <0.05 NEGATIVE 0.06 - 0.59 AT RISK OF AR > OR = 0.60 SUGGEST AR 30-Cpm-366960:08 Microscopic Examination Comments: PATIENT WAS FASTINGPERFORMED BY: Audiam6370 [facility] [id number] Bacteria Few (Normal) Mucus Threads Present (Normal) Cast Type Hyaline casts (Normal) Casts Present {/lpf} (Abnormal) Epithelial Cells (non renal) 0-10 {/hpf} (Normal) Range: 0 - 10 RBC 0-2 {/hpf} (Normal) Range: 0 - 2 WBC 11-30 {/hpf} (Abnormal) Range: 0 - 5 53-Czc-528315:08 CALCIFIDIOL (96706) VIT D 25 Comments: PATIENT WAS FASTINGPERFORMED BY: LabCarnegie Mellon Universityrp Qzaafl7842 [facility] [id number] Vitamin D, 25-Hydroxy 33.5 ng/mL (Normal) Range: 30.0-100.0 Comments: Vitamin D deficiency has been defined by the [place] ofMedicine and an Endocrine Society practice guideline as alevel of serum 25-OH vitamin D less than 20 ng/mL (1,2).The Endocrine Society went on to further define vitamin Dinsufficiency as a level between 21 and 29 ng/mL (2).1. IOM ([place] of Medicine). 2010. Dietary reference intakes for calcium and D. [place]: The National Academies Press.2. Rachel MF, Yael MARLEY, Dunia HERRERA, et al. Evaluation, treatment, and prevention of vitamin D deficiency: an Endocrine Society clinical practice guideline. JCEM. 2010; 96(7):1911-30. 02-Ilj-129951:08 TSH (94280) Comments: PATIENT WAS FASTINGPERFORMED BY: [facility]6370 [facility] [id number] TSH 3.700 {uIU/mL} (Normal) Range: 0.450-4.500 90-Tga-834800:08 LIPID PANEL (56092) Comments: PATIENT WAS FASTINGPERFORMED BY: [facility]6370 [facility] [id number] LDL/HDL Ratio 1.8 {ratio_units} (Normal) Range: 0.0-3.2 Comments: LDL/HDL Ratio Men Women 1/2 Avg.Risk 1.0 1.5 Av g.Risk 3.6 3.2 2X Avg.Risk 6.2 5.0 3X Avg.Risk 8.0 6.1 LDL Cholesterol Calc 84 mg/dL (Normal) Range: 0-99 VLDL Cholesterol Priscilla 49 mg/dL (Abnormal) Range: 5-40 HDL Cholesterol 46 mg/dL (Normal) Triglycerides 243 mg/dL (Abnormal) Range: 0-149 Cholesterol, Total 179 mg/dL (Normal) Range: 100-199 64-Raj-915965:08 URINALYSIS, W/ MICRO (96504) Comments: PATIENT WAS FASTINGPERFORMED BY: [facility]6370 [facility] [id number] Microscopic Examination See below: (Normal) Comments: Microscopic was indicated and was performed. Nitrite, Urine Negative (Normal) Urobilinogen,Semi-Qn 0.2 mg/dL (Normal) Range: 0.2-1.0 Bilirubin Negative (Normal) Occult Blood Negative (Normal) Ketones Negative (Normal) Glucose Negative (Normal) Protein 2+ (Abnormal) WBC Esterase 1+ (Abnormal) Appearance Clear (Normal) Urine-Color Yellow (Normal) pH 5.5 (Normal) Range: 5.0-7.5 Specific Bryant >=1.030 (Abnormal) Range: 1.005-1.030 75-Ijq-176846:08 MICROALBUMIN: CREATININE RATIO Comments: PATIENT WAS FASTINGPERFORMED BY: [facility]6370 [facility] [id number] (59075) AND (25008) Microalb/Creat Ratio 246.3 {mg/g_creat} (Abnormal) Range: 0.0-30.0 Microalbumin, Urine 433.7 ug/mL (Normal) Comments: Results confirmed ondilution. Creatinine, Urine 176.1 mg/dL (Normal) 93-Yfq-827954:08 METABOLIC PANEL, COMPREHENSIVE Comments: PATIENT WAS FASTINGPERFORMED BY: [employer]70 Inzen StudioAtrium Health Stanly [id number] (94889) ALT (SGPT) 26 [iU]/L (Normal) Range: 0-32 [...] Glucose, Serum 158 mg/dL (Abnormal) Range: 65-99 65-Qnp-508795:08 CBC W/AUTO DIFF WBC (41097) Comments: PATIENT WAS FASTINGPERFORMED BY: [employer] LabMorega Systems70 Inzen StudioAtrium Health [facility]ly [id number] Immature Grans (Abs) 0.0 {x10E3/uL} (Normal) Range: [...] (Normal) Range: 3.4-10.8 :31 HgA1C , Office (06489) HgA1C , Office 6.6 % (Normal) Range: 4.6 - 7.1 :31 Blood Glucose , Office (41151) Blood Glucose , Office 143 (Normal) :45 CBC W/Diff, Automated Comments: [facility] Vsofsfunol[address] [place], [place], [id number] Absolute Lymph 1.46 {X10_3/ul} (Normal) Range: 0.83-4.51 [...] 4.2-5.4 WBC 12.9 K/mm3 (Abnormal) Range: 4.4-11.0 0-Fyi-307380:45 Comprehensive Metabolic Profil Comments: [facility] [address] [place], [place], [address] GAP 8 (Normal) Range: 5-15 CO2 27.0 [...] 126 mg/dLsuggests DIABETES MELLITUS per A.D.A. criteria. 8-Avg-849005:45 Prothrombin Time w/INR Comments: [facility] [address] [place], [place], [address] INR 0.9 (Normal) PROTIME 11.6 s (Abnormal) Range: 11.7-14.9 9-Fro-291957:12 HgA1C , Office (69261) HgA1C , Office 6.5 % (Normal) Range: 4.6 - 7.1 1-Apa-584642:12 Blood Glucose , Office (68574) Blood Glucose , Office 122 (Normal) 83-Wlu-04963:39 Lipid Profile Comments: [facility] [address] [place], [place], [address] VLDL 39 mg/dL (Normal) Range: 5-40 LDL [...] report for address and phone number METHYLM [id number] 215 nmol/L (Normal) Range: 0-378 Comments: Performed at: [address] [id number] Director: Frantz Josue MD, Phone: [phone] :[phone] Vitamin B12 531 pg/mL (Normal) Comments: [facility] [address], [address] Range: 211-911 :39 Vitamin D,25 Hydroxy Comments: [facility] [address] [place], [address] Vitamin D 25-OH 44.7 ng/mL (Normal) Comments: Vitamin D 25(OH) Status Range Deficiency <20 ng/mL (50nmol/L) Insuffciency 20 - 30 ng/mL (50 - 75 nmol/L) Sufficiency 30 - 100 ng/mL (75 - 250 nmol/L) Toxicity >100 ng/mL (>250 nmol/L) :29 Bedside Glucose Comments: [facility] LaboratoryPoint of [address] [place] [address] BEDSIDE GLU 139 mg/dL (Abnormal) Range: 70-110 Comments: No Action RequiredMANAGEMENT OF PATIENT CARE PER NURSING PROTOCOL COLON BIOPSY (CHOOSE See Note (Normal) Comments: [facility] [address] [place], [address] :54 SITE) Comments: Patient: MARICRUZ GRIGSBY : 1940 (76/F) Acct Num: [id number] Phys: Constantine Saunders Unit Num: [id number] Loc: LABSPEC Specimen: [id number] Received: 11/05/16 - 163 Spe c Type: [...] one cassette. / RY:edita 11/06/16 TC:1 CPT: 54011 x2 HEADER OPERATION: Colonoscopy with polypectomy PRE-OP [...] Signed Zane Elliott 11/07/16 <signature on file> 93-Vhc-278683:47 CBC W/Diff, Automated Comments: [facility] [address] [place], [place], [address] Absolute Lymph 1.88 {X10_3/ul} (Normal) Range: 0.83-4.51 [...] 4.2-5.4 WBC 8.8 K/mm3 (Normal) Range: 4.4-11.0 67-Hkq-334648:42 Comprehensive Metabolic Profil Comments: Order Date: 10/10/16Order Info: [id number] - *CMP Complete Metabolic PanelOrder Info: [id number] - *IBC Iron \E AND E\ Total Iron Binding CapacityOrder Info: 2276-4 - *FerritinComments: Reason:Order Date: 10/10/16Order Info: [id number] - *KAPLAMBDA - [place] Lamda Light ChainsComments: Reason:[facility] [address] [facility] [place], [place], [address] GAP 9 (Normal) Range: 5-15 CO2 28.0 [...] <126 mg/dLsuggests IMPAIRED HOMEOSTASIS per A.D.A. criteria. 24-Zmy-803847:42 Ferritin Comments: Order Date: 10/10/16Order Info: [id number] - *CMP Complete Metabolic PanelOrder Info: [id number] - *IBC Iron \E AND E\ Total Iron Binding CapacityOrder Info: 2276-4 - *FerritinComments: Reason:Order Date: 10/10/16Order Info: 88861-8 - *KAPLAMBDA - [place] Lamda Light ChainsComments: Reason:[facility] [address] [place], [place], [address] FERRITIN 45 ng/mL (Normal) Range: 8-252 06-Gwd-543725:42 DEEPALI + Protein Elect, Serum Comments: Order Date: 10/10/16Order Info: [id number] - *IMEL DEEPALI + Prot Elec, Serum 1495Order Info: [id number] - *[place]DA - [place] Lamda Light ChainsOrder Date: 10/10/16Order Info: [id number] - *IMEL DEEPALI + Prot Elec, Serum 1495Order Info: [id number] - *KAPLAMBDA - [place] Lamda Light ChainsOrder Date: 10/10/16Order Info: [id number] - *[place]DA - [place] Lamda Light ChainsIs Patient Fasting? NComments: Reason:[facility] (refer to report for specific site)refer to report for address and phone number NOTE: Comment (Normal) Comments: Protein electrophoresis scan will follow via computer,mail, or residential sales executive delivery. DEEPALI RESULT,S Comment (Normal) Comments: Immunofixation shows IgG monoclonal protein with lambdalight chain specificity. A/G RATIO 1.4 (Normal) Range: 0.7-1.7 GLOBULIN, TOTAL 2.8 g/dL (Normal) Range: 2.2-3.9 M-SPIKE 0.3 g/dL (Abnormal) GAMMA GLOBULIN 0.8 g/dL (Normal) Range: 0.4-1.8 BETA GLOBULIN 0.9 g/dL (Normal) Range: 0.7-1.3 GFWWR-5-YBGI 0.9 g/dL (Normal) Range: 0.4-1.0 TLFLG-4-IPKP 0.2 g/dL (Normal) Range: 0.0-0.4 ALBUMIN 3.7 g/dL (Normal) Range: 2.9-4.4 IMMUNOGL M 100 mg/dL (Normal) Range: 26-217 IMMUNO A 106 mg/dL (Normal) Range: 64-422 IMMUNO G 693 mg/dL (Abnormal) Range: 700-1600 PROTEIN,TOTAL 6.5 g/dL (Normal) Range: 6.0-8.5 12-Wrs-671012:42 Iron+Iron Binding Capacity Comments: Order Date: 10/10/16Order Info: 0786-1 - *CMP Complete Metabolic PanelOrder Info: [id number] - *IBC Iron \E AND E\ Total Iron Binding CapacityOrder Info: 2276-4 - *FerritinComments: Reason:Order Date: 10/10/16Order Info: [id number] - *KAPLAMBDA - [place] Lamda Light ChainsComments: Reason:[facility] [address] [place], [place], [address] IRON SATURATION 15.9 % (Normal) Range: 15.0-55.0 IRON 49 ug/dL (Abnormal) Range: 50-170 TIBC 309 ug/dL (Normal) Range: 250-450 88-Nab-747164:42 [place] Lambda Light Chains Comments: Order Date: 10/10/16Order Info: [id number] - *IMEL DEEPALI + Prot Elec, Serum 1495Order Info: [id number] - *[place]DA - [place] Lamda Light ChainsOrder Date: 10/10/16Order Info: [id number] - *IMEL DEEPALI + Prot Elec, Serum 1495Order Info: [id number] - *[place]DA - [place] Lamda Light ChainsOrder Date: 10/10/16Order Info: 11983-5 - *[place]DA - [place] Lamda Light ChainsIs Patient Fasting? NComments: Reason:[facility] (refer to report for specific site)refer to report for address and phone number KAPPA/LAMBDA % 0.98 (Normal) Range: 0.26-1.65 Comments: Performed at: - [facility] [address] [id number] Director: Constantine Christianson PhD, Phone: [phone] FR LAMBDA LT CH 19.06 mg/L (Normal) Range: 5.71-26.30 FR KAPPA LT CHN 18.62 mg/L (Normal) Range: 3.30-19.40 84-Fcm-525784:06 VITAMIN B-12 (CYANOCOBALAMIN) Comments: PATIENT NOT FASTINGPERFORMED BY: [facility] Qzxqti3295 [facility] [id number] (87602) Vitamin B12 709 pg/mL (Normal) Range: 211-946 26-Kbv-050100:45 Blood Glucose , Office (75230) Blood Glucose , Office 104 (Normal) 97-Cwx-407631:45 HgA1C , Office (22131) HgA1C , Office 6.7 % (Normal) Range: 4.6 - 7.1 :54 CBC W/Diff, Automated Comments: [facility] [address] [place], [place], [address] Absolute Lymph 1.51 {X10_3/ul} (Normal) Range: 0.83-4.51 [...] 4.2-5.4 WBC 7.0 K/mm3 (Normal) Range: 4.4-11.0 57-Uke-12048:54 Comprehensive Metabolic Profil Comments: [facility] [address] [place], [place], [address] GAP 8 (Normal) Range: 5-15 CO2 28.0 [...] per A.D.A. criteria. :54 Lipid Profile Comments: [facility] [address] [place], [address] VLDL 38 mg/dL (Normal) Range: 5-40 LDL [...] High Risk :54 Microalb:Creat Ratio,Random UR Comments: [facility] [address] [place], [address] MALB:CREAT 223.2 {mg/g_CRE} (Abnormal) MICROALBUMIN,UR 250.0 mg/L (Normal) UR CREAT 112.00 mg/dL (Normal) :54 Thyroid Stim Hormone (TSH) Comments: [facility] [address] [place], [address] TSH 1.13 {uIU/mL} (Normal) Range: 0.358-3.74 :54 Urinalysis, Complete Comments: How was Urine Obtained? CLEAN [facility] [address] [place], [address] MUCUS, URINE 0 SEEN {/hpf} (Normal) [...] Yellow (Normal) :54 Vitamin D,25 Hydroxy Comments: [facility] [address] [place], [address] Vitamin D 25-OH 31.6 ng/mL (Normal) Comments: Vitamin D 25(OH) Status Range Deficiency <20 ng/mL (50nmol/L) Insuffciency 20 - 30 ng/mL (50 - 75 nmol/L) Sufficiency 30 - 100 ng/mL (75 - 250 nmol/L) Toxicity >100 ng/mL (>250 nmol/L) 41-Afc-119424:07 VITAMIN B-12 (CYANOCOBALAMIN) Comments: PATIENT NOT FASTINGPERFORMED BY: [facility]6370 [facility] [id number] (98096) Vitamin B12 1119 pg/mL (Abnormal) Range: 211-946 06-Sus-029351:23 Microscopic Examination Comments: PATIENT WAS FASTINGPERFORMED BY: [place] [address] [facility] [id number] Bacteria Few (Normal) Mucus Threads Present (Normal) Epithelial Cells (non renal) 0-10 {/hpf} (Normal) Range: 0 - 10 RBC 0-2 {/hpf} (Normal) Range: 0 - 2 WBC >30 {/hpf} (Abnormal) Range: 0 - 5 24-Nda-454702:23 VITAMIN B-12 (CYANOCOBALAMIN) Comments: PATIENT WAS FASTINGPERFORMED BY: [facility]6370 [facility] [id number] (59041) Vitamin B12 >2000 pg/mL (Abnormal) Range: 211-946 28-Fir-889260:23 TSH (48561) Comments: PATIENT WAS FASTINGPERFORMED BY: [facility]6370 [facility] [id number] TSH 5.380 {uIU/mL} (Abnormal) Range: 0.450-4.500 62-Zqc-136381:23 URINALYSIS, W/ MICRO (62004) Comments: PATIENT WAS FASTINGPERFORMED BY: [facility]6370 [facility] [id number] Microscopic Examination See below: (Normal) Comments: Microscopic was indicated and was performed. Nitrite, Urine Negative (Normal) Urobilinogen,Semi-Qn 0.2 mg/dL (Normal) Range: 0.2-1.0 Bilirubin Negative (Normal) Occult Blood Negative (Normal) Ketones Negative (Normal) Glucose Negative (Normal) Protein Trace (Normal) WBC Esterase 2+ (Abnormal) Appearance Clear (Normal) Urine-Color Yellow (Normal) pH 6.0 (Normal) Range: 5.0-7.5 Specific Bryant 1.022 (Normal) Range: 1.005-1.030 80-Xoe-544835:23 MICROALBUMIN: CREATININE RATIO Comments: PATIENT WAS FASTINGPERFORMED BY: [facility]6370 [facility] [id number] (17172) AND (75839) Microalb/Creat Ratio 24.2 {mg/g_creat} (Normal) Range: 0.0-30.0 Microalbumin, Urine 35.4 ug/mL (Normal) Creatinine, Urine 146.0 mg/dL (Normal) 35-Pth-778771:23 METABOLIC PANEL, COMPREHENSIVE Comments: PATIENT WAS FASTINGPERFORMED BY: [facility]HomeSaint [facility]abas Medical CenterSjlzuu1858 [facility] [id number] (50152) ALT (SGPT) 25 [iU]/L (Normal) Range: 0-32 [...] Glucose, Serum 143 mg/dL (Abnormal) Range: 65-99 97-Lgn-496493:23 CBC W/AUTO DIFF WBC (90398) Comments: PATIENT WAS FASTINGPERFORMED BY: LabCoSaint Barnabas Medical CenterGfnsem2898 [facility] [id number] Immature Grans (Abs) 0.0 {x10E3/uL} (Normal) Range: [...] 3.77-5.28 WBC 7.4 {x10E3/uL} (Normal) Range: 3.4-10.8 98-Vxj-621896:23 CALCIFIDIOL (79812) VIT D 25 Comments: PATIENT WAS FASTINGPERFORMED BY: [facility]CoSaint Barnabas Medical CenterZmcsms5756 [facility] [id number] Vitamin D, 25-Hydroxy 28.9 ng/mL (Abnormal) Range: 30.0-100.0 Comments: Vitamin D deficiency has been defined by the [place] ofSelect Medical [facility]health Rehabilitation Hospitalcine and an Endocrine Society practice guideline as alevel of serum 25-OH vitamin D less than 20 ng/mL (1,2).The Endocrine Society went on to further define vitamin Dinsufficiency as a level between 21 and 29 ng/mL (2).1. IOM ([place] of Medicine). 2010. Dietary reference intakes for calcium and D. [place]: The National Academies Press.2. Rachel MF, Yael NC, Dunia HERRERA, et al. Evaluation, treatment, and prevention of vitamin D deficiency: an Endocrine Society clinical practice guideline. JCEM. 2010; 96(7):1911-30. :22 HgA1C , Office (62927) HgA1C , Office 7.1 % (Normal) Range: 4.6 - 7.1 :22 Blood Glucose , Office (65680) Blood Glucose , Office 171 (Normal) 4-Web-411800:10 Basic Metabolic Profile (BMP) Comments: Serial Specimen #1, #2 or #3? 1'TROP' Serial specimen #1, #2, #3, or #4: 1[facility] [address] [place], [address] GAP 8 (Normal) Range: 5-15 CO2 28.0 [...] 126 mg/dLsuggests DIABETES MELLITUS per A.D.A. criteria. 0-Zqf-078784:10 CBC W/Diff, Automated Comments: [facility] [address] [place], [place], [address] Absolute Lymph 1.32 {X10_3/ul} (Normal) Range: 0.83-4.51 [...] Serial specimen #1, #2, #3, or #4: [address] [place] [address] [address] [place], [address] CKRI 1.3 % (Normal) Range: [...] Serial specimen #1, #2, #3, or #4: [address] [place] [address] [address] [place], [address] TROPONIN-I < 0.02 ng/mL (Normal) Comments: TROPONIN-I EXPECTED VALUES <0.05 NEGATIVE 0.06 - 0.59 AT RISK OF AR > OR = 0.60 SUGGEST AR :55 Blood Glucose , Office (08003) Blood Glucose , Office 117 (Normal) :36 HgA1C , Office (25550) HgA1C , Office 7.1 % (Normal) Range: 4.6 - 7.1 :52 CBC W/Diff, Automated Comments: CBCD WITH WBC PER ORDERLouis Stokes [facility] Center [address] [place], [address] Absolute Lymph 1.67 {X10_3/ul} (Normal) [...] Range: 4.4-11.0 30-Nov-20156:52 Comprehensive Metabolic Profil Comments: [facility] [address] [place], [place], [address] GAP 10 (Normal) Range: 5-15 CO2 26.0 [...] per A.D.A. criteria. :52 Immunofixation Urine Comments: [facility] (refer to report for specific site)refer to report for address and phone number DEEPALI Urine Comment (Normal) Comments: Immunofixation shows IgG monoclonal protein with lambdalight chain specificity.Bence Jorge Protein positive; lambda type.Performed at: [place] [address] 12[address] Dire ctor: Constantine Christianson PhD, Phone: [phone] :[phone] Immunofixation, Serum Comments: [facility] (refer to report for specific site)refer to report for address and phone number DEEPALI RESULT,S Comment (Normal) Comments: Immunofixation shows IgG monoclonal protein with lambdalight chain specificity. IMMUNOGL M 112 mg/dL (Normal) Range: 26-217 IMMUNO A 110 mg/dL (Normal) Range: 64-422 IMMUNO G 783 mg/dL (Normal) Range: 700-1600 :52 [place] Lambda Light Chains Comments: [facility] (refer to report for specific site)refer to report for address and phone number KAPPA/LAMBDA % 1.03 (Normal) Range: 0.26-1.65 FR LAMBDA LT CH 21.11 mg/L (Normal) Range: 5.71-26.30 FR KAPPA LT CHN 21.66 mg/L (Abnormal) Range: 3.30-19.40 :52 Lipid Profile Comments: [facility] [address] [place], [address] ; review OV 12/02/15 VLDL 35 mg/dL [...] High Risk :52 Microalb:Creat Ratio,Random UR Comments: [facility] [address] [place], [address] MALB:CREAT 44.5 {mg/g_CRE} (Abnormal) MICROALBUMIN,UR 68.1 mg/L (Normal) UR CREAT 153.00 mg/dL (Normal) :52 Vitamin B12 268 pg/mL (Normal) Comments: [facility] [address] [place], [address] Range: 211-911 Comments: ADDENDA: normal and has f/u this saturday:52 Vitamin D,25 Hydroxy Comments: [facility] [address] [place], [address] Vitamin D 25-OH 48.8 ng/mL (Normal) Comments: Vitamin D 25(OH) Status Range Deficiency <20 ng/mL (50nmol/L) Insuffciency 20 - 30 ng/mL (50 - 75 nmol/L) Sufficiency 30 - 100 ng/mL (75 - 250 nmol/L) Toxicity >100 ng/mL (>250 nmol/L) :15 Basic Metabolic Profile (BMP) Comments: [facility] [address] [place], [address] GAP 10 (Normal) Range: 5-15 [...] A.D.A. criteria. :15 CBC W/Diff, Automated Comments: [facility] [address] [place], [address] RED CELL MORPH NORM C+C [...] 4.2-5.4 WBC 11.4 K/mm3 (Abnormal) Range: 4.4-11.0 59-Xuh-417677:08 HgA1C , Office (64894) HgA1C , Office 6.8 % (Normal) Range: 4.6 - 7.1 8-Eid-135299:30 FERRITIN (65560) Comments: PATIENT WAS FASTINGPERFORMED BY: [facility]70 [facility] [id number] Ferritin, Serum 121 ng/mL (Normal) Range: 15-150 4-Vbu-455691:30 IRON (59149) Comments: PATIENT WAS FASTINGPERFORMED BY: [employer]70 [facility] [id number] Iron, Serum 56 ug/dL (Normal) Range: 35-155 [...] - 159 >60 years 27 - 139 1-Eee-680085:30 TSH (21529) Comments: PATIENT WAS FASTINGPERFORMED BY: LabCoSaint Barnabas Medical CenterWmkllb6652 [facility] [id number] TSH 1.660 {uIU/mL} (Normal) Range: 0.450-4.500 1-Wxw-096982:30 LIPID PANEL (59832) Comments: PATIENT WAS FASTINGPERFORMED BY: LabCoSaint Barnabas Medical CenterCpputo1250 [facility] [id number] LDL/HDL Ratio 2.1 {ratio_units} (Normal) Range: 0.0-3.2 [...] Cholesterol, Total 190 mg/dL (Normal) Range: 100-199 6-Wmi-539381:30 METABOLIC PANEL, COMPREHENSIVE Comments: PATIENT WAS FASTINGPERFORMED BY: [facility] Wykbem6359 [facility] [id number] (04116) ALT (SGPT) 24 [iU]/L (Normal) Range: 0-32 [...] Glucose, Serum 122 mg/dL (Abnormal) Range: 65-99 4-Dxi-004469:30 Vitamin D Hydroxy (67194) Comments: PATIENT WAS FASTINGPERFORMED BY: [facility] [place] [id number] Vitamin D, 25-Hydroxy 25.3 ng/mL (Abnormal) Range: 30.0-100.0 Comments: Vitamin D deficiency has been defined by the [place] ofMedicine and an Endocrine Society practice guideline as alevel of serum 25-OH vitamin D less than 20 ng/mL (1,2).The Endocrine Society went on to further define vitamin Dinsufficiency as a level between 21 and 29 ng/mL (2).1. IOM ([place] of Medicine). 2010. Dietary reference intakes for calcium and D. [place]: The National Academies Press.2. Rachel MF, Yael NC, Dunia HERRERA, et al. Evaluation, treatment, and prevention of vitamin D deficiency: an Endocrine Society clinical practice guideline. JCEM. 2010; 96(7):1911-30. 2-Zvd-280909:30 CBC W/AUTO DIFF WBC Comments: PATIENT WAS FASTINGPERFORMED BY: [facility] [id number] Information: [id number] (69175) Immature Grans (Abs) 0.0 {x10E3/uL} (Normal) Range: [...] 3.77-5.28 WBC 8.2 {x10E3/uL} (Normal) Range: 3.4-10.8 3-Tbp-690240:30 serum free light chains Comments: PATIENT WAS FASTINGPERFORMED BY: LabCoSaint Barnabas Medical CenterHrupep4438 [facility] [id number] (68971) [place]/Lambda Ratio,S 0.81 (Normal) Range: 0.26-1.65 Free Lambda Lt Chains,S 17.93 mg/L (Normal) Range: 5.71-26.30 Free [place] Lt Chains,S 14.55 mg/L (Normal) Range: 3.30-19.40 8-Jne-812633:08 urine immunofixation (21654) Comments: PATIENT NOT FASTINGPERFORMED BY: LabCoSaint Barnabas Medical CenterRmjlkh5561 [facility] [id number] Information: SRC:UR [id number] DEEPALI Interpretation:U IFEGL (Normal) Comments: 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 0-Xii-676254:30 serum immunofixation (12923) Comments: PATIENT WAS FASTINGPERFORMED BY: LabCoSaint Barnabas Medical CenterUujqgr7352 [facility] [id number] Immunoglobulin M, Qn, Serum 99 mg/dL (Normal) Range: 40-230 Immunoglobulin A, Qn, Serum 107 mg/dL (Normal) Range: 91-414 Immunoglobulin G, Qn, Serum 814 mg/dL (Normal) Range: 700-1600 Immunofixation Result, Serum IFEGL (Normal) Comments: Immunofixation shows IgG monoclonal protein with lambda light chainspecificity. :49 CBC W/Diff, Automated Comments: [facility] [address] [place], [place], [address] Absolute Lymph 0.99 {X10_3/ul} (Normal) Range: 0.83-4.51 [...] K/mm3 (Normal) Range: 4.4-11.0 :49 Ferritin Comments: [facility] [address] [place], [address] FERRITIN 80 ng/mL (Normal) Range: 8-252 :49 Hemoglobin A1c Comments: [facility] [address] [place], [address] HGB A1C 6.4 % (Abnormal) Range: 4.2-6.3 :49 Iron Comments: [facility] [address] [place], [address] IRON 43 ug/dL (Abnormal) Range: 50-170 :49 Iron Binding Capacity,Total Comments: [facility] [address] [place], [address] TIBC 336 ug/dL (Normal) Range: 250-450 :49 Protein Electro.Ur-Random Comments: [facility] (refer to report for specific site)refer to report for address and phone number M-SPIKE,U Test not performed (Normal) GAMMA GLOB,U Test not performed (Normal) Comments: Test not performed BETA GLOB,U Test not performed (Normal) Comments: Test not performed YSYWH-0-XNER,U Test not performed (Normal) Comments: Test not performed BJWUU-5-UCPM,U Test not performed (Normal) Comments: Test not [...] electrophoresis scan will follow via computer,mail, or residential sales executive delivery. NOTE: Comment (Normal) Comments: The SPE [...] electrophoresis scan will follow via computer,mail, or residential sales executive delivery. A/G RATIO 1.5 (Normal) Range: 0.7-2.0 [...] 6.0-8.5 :49 Thyroid Stim Hormone (TSH) Comments: [facility] [address] [place], [place], [address] TSH 4.43 {uIU/mL} (Abnormal) Range: 0.358-3.74 :49 Vitamin B12 431 pg/mL (Normal) Comments: [facility] [address] [place], [place], [address] Range: 211-911 Comments: ADDENDA: has apt today :58 AFP, Tumor Marker Comments: Is [facility] ? [facility] (refer to report for specific site)refer to report for address and phone number AFP TUMOR 2253 4.9 ng/mL (Normal) Range: 0.0-8.3 Comments: Patricia ECLIA methodologyPerformed at: - [facility] [address] [id number] Director: Constantine Christianson PhD, Phone: [phone] :[phone] CBC W/Diff, Automated Comments: [facility] [address] [place], [place], [address] Absolute Lymph 1.46 {X10_3/ul} (Normal) Range: 0.83-4.51 [...] 4.2-5.4 WBC 7.3 K/mm3 (Normal) Range: 4.4-11.0 58-Etc-78607:58 Comprehensive Metabolic Profil Comments: [facility] [address] [place], [address] GAP 7 (Normal) Range: 5-15 [...] per A.D.A. criteria. :58 Lipid Profile Comments: [facility] [address] [place], [place], [address] ; non-emergent and has apth this week [...] :58 Vitamin B12 278 pg/mL (Normal) Comments: [facility] Jobhyjylsu[address] [place], [address] Range: 211-911 :58 Vitamin D,25 Hydroxy Comments: [facility] [address] [place], [address] Vitamin D 25-OH 38.4 ng/mL (Normal) Comments: Vitamin D 25(OH) Status Range Deficiency <20 ng/mL (50nmol/L) Insuffciency 20 - 30 ng/mL (50 - 75 nmol/L) Sufficiency 30 - 100 ng/mL (75 - 250 nmol/L) Toxicity >100 ng/mL (>250 nmol/L) 72-Uxo-343056:07 HgA1C , Office (92397) HgA1C , Office 6.5 % (Normal) Range: 4.6 - 7.1 :43 AFP, Tumor Marker Comments: Is Patient ? NTest performed at:[facility] [address] [facility] [place] [address] AFP TUMOR 2253 4.8 ng/mL (Normal) Range: 0.0-8.3 Comments: [employer] ECLIA methodologyPerformed at: [employer] - [facility] [address] [id number] Director: rAnold Jefferson PhD, Phone: [phone] :[phone] CBC W/Diff, Automated Comments: Test performed at:[facility] [address]efdgqv035[address] [facility] [place] [address] Absolute Lymph 1.16 {X10_3/ul} (Normal) [...] 4.2-5.4 WBC 5.6 K/mm3 (Normal) Range: 4.4-11.0 68-Cqy-02371:43 Comprehensive Metabolic Profil Comments: Test performed at:[facility] [address] [place] [address] GAP 11 (Normal) Range: 5-15 CO2 24.0 [...] criteria. :43 Lipid Profile Comments: Test performed at:[facility] [address] [place] [address] VLDL 61 mg/dL (Abnormal) Range: 5-40 [...] :43 Microalb:Creat Ratio,Random UR Comments: Test performed at:[facility] [address] [place] [address] MALB:CREAT 15.9 {mg/g_CRE} (Normal) MICROALBUMIN,UR 19.2 mg/L (Normal) UR CREAT 120.3 mg/dL (Normal) :43 Thyroid Stim Hormone (TSH) Comments: Test performed at:[facility] [address] [place] [address] TSH 2.19 {uIU/mL} (Normal) Range: 0.358-3.74 :43 Vitamin B12 261 pg/mL (Normal) Comments: Test performed at:[facility] [address] [place] [address] Range: 211-911 Comments: ADDENDA: nl and pt has apt tomorrow :43 Vitamin D,25 Hydroxy Comments: Test performed at:[facility] [address] [place] [address] Vitamin D 25-OH 30.9 ng/mL (Normal) Comments: Vitamin D 25(OH) Status Range Deficiency <20 ng/mL (50nmol/L) Insuffciency 20 - 30 ng/mL (50 - 75 nmol/L) Sufficiency 30 - 100 ng/mL (75 - 250 nmol/L) Toxicity >100 ng/mL (>250 nmol/L) :38 HgA1C , Office (61762) HgA1C , Office 6.7 % (Normal) Range: 4.6 - 7.1 :56 AFP, Tumor Marker Comments: Is Patient ? NTest performed at:[facility] [address] [place] [address] ; appt 02/15 AFP TUMOR 2253 4.8 ng/mL (Normal) Range: 0.0-8.3 Comments: [employer] ECLIA methodologyPerformed at: [employer] [facility] [address] [id number] Director: Arnold Jefferson PhD, Phone: [phone] CBC W/Diff, Automated Comments: Test performed at:[facility] [address] [place] [address] Absolute Lymph 2.37 {X10_3/ul} (Normal) Range: [...] 4.4-11.0 :56 Lipid Profile Comments: Test performed at:[facility] [address] [place], [place] [id number] VLDL 26 mg/dL (Normal) Range: 5-40 LDL [...] :56 Partial Thromboplast Time Comments: Test performed at:[facility] [address] [place] [address] PTT 30.1 s (Normal) Range: 24.1-36.2 :56 Prothrombin Time w/INR Comments: Test performed at:[facility] [address] [place] [address] INR 1.0 (Normal) PROTIME 12.8 s (Normal) Range: 11.7-14.9 :56 Thyroid Stim Hormone (TSH) Comments: Test performed at:[facility] [address] [place] [address] TSH 5.17 {uIU/mL} (Abnormal) Range: 0.358-3.74 :56 Vitamin B12 293 pg/mL (Normal) Comments: Test performed at:[facility] [address] [place] [address] Range: 211-911 :56 Vitamin D,25 Hydroxy Comments: Test performed at:[facility] [address] [place] [address] Vitamin D 25-OH 32.0 ng/mL (Normal) Comments: Vitamin D 25(OH) Status Range Deficiency <20 ng/mL (50nmol/L) Insuffciency 20 - 30 ng/mL (50 - 75 nmol/L) Sufficiency 30 - 100 ng/mL (75 - 250 nmol/L) Toxicity >100 ng/mL (>250 nmol/L) :07 HgA1C , Office (46668) HgA1C , Office 6.3 % (Normal) Range: 4.6 - 7.1 :33 CBC W/Diff, Automated Comments: Test performed at:[facility] [address] [place] [address] ; non- emergent till apt Absolute [...] 4.2-5.4 WBC 7.3 K/mm3 (Normal) Range: 4.4-11.0 62-Mzq-81323:33 Comprehensive Metabolic Profil Comments: Test performed at:[facility] [address] [place], [place] [id number] GAP 4 (Abnormal) Range: 5-15 CO2 28.0 [...] criteria. :33 Lipid Profile Comments: Test performed at:[facility] [address] [place] [address] VLDL 29 mg/dL (Normal) Range: [...] B12 394 pg/mL (Normal) Comments: Test performed at:[facility] [address] [place] [address] Range: 211-911 :33 Vitamin D,25 Hydroxy Comments: Test performed at:[facility] [address] [facility] [place], [place] [id number] Vitamin D 25-OH 39.6 ng/mL (Normal) Comments: Vitamin D 25(OH) Status Range Deficiency <20 ng/mL (50nmol/L) Insuffciency 20 - 30 ng/mL (50 - 75 nmol/L) Sufficiency 30 - 100 ng/mL (75 - 250 nmol/L) Toxicity >100 ng/mL (>250 nmol/L) :10 HgA1C , Office (23161) HgA1C , Office 6.4 % (Normal) Range: [...] 4.2-5.4 WBC 6.0 K/mm3 (Normal) Range: 4.4-11.0 80-Khj-30676:42 CMP GAP 5 (Normal) Range: 5-15 CO2 [...] CHOL 167 mg/dL (Normal) Comments: <200 mg/dL Qmluehxfq302-251 mg/dL Borderline>240 mg/dL High Risk TRIG 200 mg/dL (Abnormal) Range: 0-199 Comments: Serum Triglycerides Reference IntervalNormal <150 mg/dLBorderline high 150 - 199 mg/dLHigh 200 - 499 mg/ dLVery High > or = 500 mg/dL :42 TIBC 275 ug/dL (Normal) Range: 250-450 :42 TSH 2.12 {uIU/mL} (Normal) Range: 0.358-3.74 75-Zqy-063226:10 FERRITIN (48232) Comments: PATIENT NOT FASTINGPERFORMED BY: [facility] Tbnxsq5713 [facility] [id number] Ferritin, Serum 133 ng/mL (Normal) Range: 15-150 77-Sdi-404712:10 IRON BINDING CAPACITY Comments: PATIENT NOT FASTINGPERFORMED BY: [facility] Ixpzsj5812 [facility] [id number] Information: [id number] (TIBC) (27394) Iron Saturation 20 % (Normal) Range: 15-55 Iron, Serum 62 ug/dL (Normal) Range: 35-155 UIBC 241 ug/dL (Normal) Range: 150-375 Iron Bind.Cap.(TIBC) 303 ug/dL (Normal) Range: 250-450 64-Zrq-890853:10 VITAMIN B-12 (CYANOCOBALAMIN) Comments: PATIENT NOT FASTINGPERFORMED BY: [facility]CoSaint [facility]abas Medical CenterAuqukx2029 [facility] [id number] (49659) Vitamin B12 421 pg/mL (Normal) Range: 211-946 :10 TSH (42702) Comments: PATIENT NOT FASTINGPERFORMED BY: [facility] Ncxtzk7322 [facility] [id number] TSH 1.150 {uIU/mL} (Normal) Range: 0.450-4.500 59-Fxn-640644:37 HgA1C , Office (19172) HgA1C , Office 6.1 % (Normal) Range: 4.6 - 7.1 5-Lvj-092602:10 CBC with manual diff Comments: PATIENT WAS FASTINGPERFORMED BY: [facility] Toujlq2248 [facility] [id number] Information: [id number] (23775) Immature Grans (Abs) 0.0 {x10E3/uL} (Normal) Range: [...] 3.77-5.28 WBC 8.2 {x10E3/uL} (Normal) Range: 3.4-10.8 1-Jbs-834975:10 Metabolic Panel, Comprehensive Comments: PATIENT WAS FASTINGPERFORMED BY: [facility]CoSaint [facility]ab[facility] CenterMmpfqd1697 [facility] [id number] (85977) ALT (SGPT) 11 [iU]/L (Normal) Range: 0-32 [...] Glucose, Serum 129 mg/dL (Abnormal) Range: 65-99 5-Zse-528266:10 Lipid Panel (16460) Comments: PATIENT WAS FASTINGPERFORMED BY: [facility]CoSaint [facility]ab[facility] Medical CenterWonkps1398 [facility] [id number] LDL/HDL Ratio 1.4 {ratio_units} (Normal) Range: 0.0-3.2 [...] METABOLIC PANEL, Comments: PATIENT NOT FASTINGPERFORMED BY: [employer] Uysxtg0695 [facility] [id number] Information: [id number] COMPREHENSIVE (83223) ALT (SGPT) 15 [iU]/L (Normal) Range: 0-32 [...] 133 mg/dL (Abnormal) Range: 65-99 :14 TSH (59685) Comments: PATIENT NOT FASTINGPERFORMED BY: [facility]CoSaint [facility] CenterOyejwf7852 [facility] [id number] TSH 0.182 {uIU/mL} (Abnormal) Range: 0.450-4.500 :40 [...] CHOL 99 mg/dL (Normal) Comments: <200 mg/dL Ousdfwcqo683-853 mg/dL Borderline>240 mg/dL High Risk :40 MIACRE [...] CHOL 148 mg/dL (Normal) Comments: <200 mg/dL Vytjcdofm542-413 mg/dL Borderline>240 mg/dL High Risk HDL 46 [...] - 250 nmol/L)Toxicity >100 ng/mL (>250 nmol/L) 40-Olg-592020:27 HgA1C , Office (12437) HgA1C , Office 6.7 % (Normal) Range: 4.6 - 7.1 :17 METABOLIC PANEL, COMPREHENSIVE Comments: PATIENT WAS FASTINGPERFORMED BY: [facility] Gxdtar7685 [facility] [id number] (76962) ALT (SGPT) 16 [iU]/L (Normal) Range: 0-32 [...] mg/dL (Abnormal) Range: 65-99 :17 LIPID PANEL (02951) Comments: PATIENT WAS FASTINGPERFORMED BY: [employer] Eppbal8987 [facility] [id number] LDL/HDL Ratio 2.0 {ratio_units} (Normal) Range: 0.0-3.2 [...] MANUAL DIFF Comments: PATIENT WAS FASTINGPERFORMED BY: [facility]6370 [facility] [id number] Information: [id number] (11659) Immature Grans (Abs) 0.0 {x10E3/uL} (Normal) Range: [...] B-12 (CYANOCOBALAMIN) Comments: PATIENT WAS FASTINGPERFORMED BY: [employer] Sijtvc2489 [facility] [place] [id number] (45477) Vitamin B12 696 pg/mL (Normal) Range: 211-946 :17 Vitamin D Hydroxy (89888) Comments: PATIENT WAS FASTINGPERFORMED BY: [facility] Iubxke3211 [address] RoadDublin [place] [id number] Vitamin D, 25-Hydroxy 29.3 ng/mL (Abnormal) Range: 30.0-100.0 Comments: Vitamin D deficiency has been defined by the [place] ofSelect Medical [facility] Hospitalcine and an Endocrine Society practice guideline as alevel of serum 25-OH vitamin D less than 20 ng/mL (1,2).The Endocrine Society went on to further define vitamin Dinsufficiency as a level between 21 and 29 ng/mL (2).1. IOM ([place] of Medicine). 2010. Dietary reference intakes for calcium and D. [place]: The National Academies Press.2. Rachel MF, Yael NC, Dunia HERRERA, et al. Evaluation, treatment, and prevention of vitamin D deficiency: an Endocrine Society clinical practice guideline. JCEM. 2010; 96(7):1911-30. :29 HgA1C , Office (40905) HgA1C , Office 7.0 % (Normal) Range: 4.6 - 7.1 :14 B12 794 pg/mL (Normal) Range: 211-911 Comments: Effective 2012:14 VITD 37.5 ng/mL (Normal) Comments: Vitamin D 25(OH) Status RangeDeficiency <20 ng/mL (50nmol/L)Insufficiency 20 - 30 ng/mL (50 - 75 nmol/L)Sufficiency 30 - 100 ng/mL (75 - 250 nm ol/L)Toxicity >100 ng/mL (250 nmol/L)Effective 201201-Dec-20125-Vfc-209038:13 CHEST PA AND LATERAL Radiology Report See [...] Tate D.O.December 01, 2012 at 12:40:54 PM [id number] Signed DS/DS If you are the referring physician and would like to consult with theradiologist who provided this i nterpretation, please contact Eulalio Tate D.O. at [phone]. If this radiologist is unavailable, you will bedirected to another radiologist to assist. If you are a patient with a question regarding t his report, pleasecontactyour referring physician directly. Professional Interpretation Provided By: [employer], Phone , These documents contain legally protected [...] 12/01/12 1244 Sign by: Mack Peterson DO 95-Cda-963565:20 Upper Respiratory Culture Comments: PATIENT NOT FASTINGPERFORMED BY: [facility]CoSaint Barnabas Medical CenterBeocmt8654 [address] [place] [id number] Information: SRC: THROAT Result 1 RRF (Normal) Comments: Routine respiratory alton Upper Respiratory Culture Final report (Normal) 26-Jvz-958748:06 Rapid Strep Test, Office (31490) Rapid Strep Test, Office Negative (Normal) 30-Lbl-746852:32 BILAT SCRN DIGITAL & CAD Radiology Report [...] Wayne M.D.November 18, 2012 at 12:51:57 PM [id number] Signed GP/GP If you are the referring physician and would like to consult with theradiologist who provid ed this interpretation, please contact Lee Claudio at [phone]. If this radiologist is unavailable, youwill be directed to another radiologist to assist. If you are a patient with a ques tion regarding this report, pleasecontactyour referring physician directly. Professional Interpretation Provided By: [employer], Phone , These documents contain legally pr [...] 11/18/12 1254 Sign by: Teo Wayne MD 2-Bdm-516119:24 URINE RANI CULTURE-IDENTIFICATN Comments: PATIENT NOT FASTINGPERFORMED BY: [facility] SchoolRe[facility] Southern [facility] MexicoSnwmvk8763 [facility] [id number] Information: [id number] (56185) Result 1 MUG (Normal) Comments: Mixed urogenital flora10,000-25,000 colony forming units per mL Urine Final report (Normal) Culture,Comprehensive 84-Zlq-818934:50 METABOLIC PANEL, Comments: PATIENT NOT FASTINGPERFORMED BY: [employer] Nsapur3571 [facility] [id number] Information: ADD [id number] AND DRAW FEE 99 5008 COMPREHENSIVE (74828) ALT (SGPT) 14 [iU]/L (Normal) Range: 0-32 [...] Glucose, Serum 109 mg/dL (Abnormal) Range: 65-99 8-Qoe-373294:42 HgA1C , Office (74047) HgA1C , Office 6.3 % (Normal) Range: 4.6 - 7.1 :04 Microscopic Examination Comments: PATIENT NOT FASTINGPERFORMED BY: [facility] [place] [id number] Bacteria Few (Normal) Mucus Threads Present (Normal) Cast Type Hyaline casts (Normal) Casts Present {/lpf} (Abnormal) Epithelial Cells (non renal) 0-10 {/hpf} (Normal) Range: 0 - 10 RBC 0-3 {/hpf} (Normal) Range: 0 - 3 WBC 6-10 {/hpf} (Abnormal) Range: 0 - 5 :04 VITAMIN B-12 (CYANOCOBALAMIN) Comments: PATIENT NOT FASTINGPERFORMED BY: [employer] [place] [id number] (40151) Vitamin B12 1228 pg/mL (Abnormal) Range: 211-946 :04 Vitamin D Hydroxy (24410) Comments: PATIENT NOT FASTINGPERFORMED BY: [facility] [place] [id number] Vitamin D, 25-Hydroxy 21.9 ng/mL (Abnormal) Range: 30.0-100.0 Comments: Vitamin D deficiency has been defined by the [place] ofMedicine and an Endocrine Society practice guideline as alevel of serum 25-OH vitamin D less than 20 ng/mL (1,2).The Endocrine Society went on to further define vitamin Dinsufficiency as a level between 21 and 29 ng/mL (2).1. IOM ([place] of Medicine). 2010. Dietary reference intakes for calcium and D. [place]: The National Academies Press.2. Rachel MF, Yael MARLEY, Dunia HERRERA, et al. Evaluation, treatment, and prevention of vitamin D deficiency: an Endocrine Society clinical practice guideline. JCEM. 2010; 96(7):1911-30. :04 URINALYSIS, W/ MICRO (07398) Comments: PATIENT NOT FASTINGPERFORMED BY: [employer]70 [facility] [id number] Microscopic Examination See below: (Normal) Nitrite, Urine Negative (Normal) Bilirubin Negative (Normal) Urobilinogen,Semi-Qn 0.2 mg/dL (Normal) Range: 0.0-1.9 Occult Blood Negative (Normal) Ketones Negative (Normal) Glucose Negative (Normal) Protein Negative (Normal) WBC Esterase 1+ (Abnormal) Appearance Clear (Normal) Urine-Color Yellow (Normal) pH 5.5 (Normal) Range: 5.0-7.5 Specific Bryant 1.024 (Normal) Range: 1.005-1.030 :04 CBC WITH MANUAL DIFF Comments: PATIENT NOT FASTINGPERFORMED BY: [employer] LabCar[facility] Wqvjcp3417 [facility] [id number] Information: [id number] (60800) Immature Grans (Abs) 0.0 {x10E3/uL} (Normal) Range: [...] 3.77-5.28 WBC 7.2 {x10E3/uL} (Normal) Range: 4.0-10.5 49-Dks-92927:04 METABOLIC PANEL, COMPREHENSIVE Comments: PATIENT NOT FASTINGPERFORMED BY: [facility]CoSaint Barnabas Medical CenterAvxscv0230 [facility] [id number] (07851) ALT (SGPT) 13 [iU]/L (Normal) Range: 0-32 [...] mg/dL (Abnormal) Range: 65-99 :04 LIPID PANEL (37291) Comments: PATIENT NOT FASTINGPERFORMED BY: [employer] [address] [id number] LDL Cholesterol Calc 103 mg/dL (Abnormal) Range: [...] pg/mL (Normal) Range: 211-946 Comments: Performed at: [employer] [facility] [address] [id number] Director: Arnold Jefferson PhD, Phone: [phone] :[phone] CMP GAP 9 (Normal) Range: 5-15 [...] 250 nmol/L) Toxicity >100 ng/mL (250 nmol/L)Effective 201215-Aug-201211-Cld-648864:20 Metabolic Panel, Basic Comments: PATIENT NOT FASTINGPERFORMED BY: [facility]bitSturgis Hospital6370 [facility] [id number] Information: [id number] (31742) Calcium, Serum 10.2 mg/dL (Normal) Range: 8.6-10.2 [...] Glucose, Serum 99 mg/dL (Normal) Range: 65-99 2-Apg-862759:24 Microscopic Examination Comments: PATIENT NOT FASTINGPERFORMED BY: [facility] OrbitSturgis Hospital6370 [facility] [id number] Bacteria Few (Normal) Mucus Threads Present (Normal) Epithelial Cells (non renal) 0-10 {/hpf} (Normal) Range: 0 - 10 RBC 0-3 {/hpf} (Normal) Range: 0 - 3 WBC 6-10 {/hpf} (Abnormal) Range: 0 - 5 7-Yjh-458625:24 Vitamin D Hydroxy (40329) Comments: PATIENT NOT FASTINGPERFORMED BY: [facility] OrbitSturgis Hospital6370 [facility] [id number] Vitamin D, 25-Hydroxy 21.7 ng/mL (Abnormal) Range: 30.0-100.0 Comments: Vitamin D deficiency has been defined by the [place] ofMedicine and an Endocrine Society practice guideline as alevel of serum 25-OH vitamin D less than 20 ng/mL (1,2).The Endocrine Society went on to further define vitamin Dinsufficiency as a level between 21 and 29 ng/mL (2).1. IOM ([place] of Medicine). 2010. Dietary reference intakes for calcium and D. [place]: The National Academies Press.2. Rachel MF, Yael MARLEY, Dunia HERRERA, et al. Evaluation, treatment, and prevention of vitamin D deficiency: an Endocrine Society clinical practice guideline. JCEM. 2010; 96(7):1911-30. 9-Mvb-396543:24 VITAMIN B-12 (CYANOCOBALAMIN) Comments: PATIENT NOT FASTINGPERFORMED BY: [employer] StudioAt[facility] Stanly [id number] (83407) Vitamin B12 431 pg/mL (Normal) Range: 211-946 :24 URINALYSIS, W/ MICRO (86860) Comments: PATIENT NOT FASTINGPERFORMED BY: [employer]70 [facility] StudioAt[facility] [id number] Microscopic Examination MICRON (Normal) Comments: Microscopic follows if indicated. Microscopic Examination See below: (Normal) Nitrite, Urine Negative (Normal) Urobilinogen,Semi-Qn 0.2 mg/dL (Normal) Range: 0.0-1.9 Bilirubin Negative (Normal) Ketones Negative (Normal) Occult Blood Negative (Normal) Glucose Negative (Normal) Protein Negative (Normal) WBC Esterase Negative (Normal) Appearance Clear (Normal) pH 6.5 (Normal) Range: 5.0-7.5 Urine-Color Yellow (Normal) Specific Bryant 1.022 (Normal) Range: 1.005-1.030 :24 CBC WITH MANUAL DIFF Comments: PATIENT NOT FASTINGPERFORMED BY: [employer]6370 [facility] StudioAt[facility] Health [facility]ly [id number] Information: [id number] (38534) Immature Grans (Abs) 0.0 {x10E3/uL} (Normal) Range: [...] 3.77-5.28 WBC 7.9 {x10E3/uL} (Normal) Range: 4.0-10.5 5-Bar-788768:24 METABOLIC PANEL, COMPREHENSIVE Comments: PATIENT NOT FASTINGPERFORMED BY: [facility]CoSaint [facility]abas Medical CenterQklibr6152 [facility] [id number] (89115) ALT (SGPT) 16 [iU]/L (Normal) Range: 0-32 [...] Glucose, Serum 107 mg/dL (Abnormal) Range: 65-99 4-Jqg-243073:24 TSH (83024) Comments: PATIENT NOT FASTINGPERFORMED BY: [facility] SchoolRe[facility] Hospital [facility] Southern New MexicoYbpabf3122 [facility] [id number] TSH 2.000 {uIU/mL} Range: 0.450-4.500 (Normal) CCP Antibodies IgG/IgA 1 {units} (Normal) Comments: PATIENT NOT FASTINGPERFORMED BY: [facility] SchoolStephanie [place] 0747970 [facility] [id number] BY: [employer] [id number] :39 Range: 0-19 Comments: Negative <20 Weak positive 20 - 39 Moderate positive 40 - 59 Strong positive >59 8-Jlg-312445:39 Systemic Lupus Profile Comments: PATIENT NOT FASTINGPERFORMED BY: [facility] SchoolStephanie [place] 0747970 [facility] [id number] BY: [employer] [id number] Information: [id number] (81728) Anti-DNA (DS) Ab Qn <1 {IU/mL} (Normal) Range: 0-9 Comments: Negative <5 Equivocal 5 - 9 Positive >9 Sjogren's Anti-SS-B 0.5 {AI} (Normal) Range: 0.0-0.9 Sjogren's Anti-SS-A 0.3 {AI} (Normal) Range: 0.0-0.9 Antichromatin Antibodies <0.2 {AI} (Normal) Range: 0.0-0.9 RA Latex Turbid. 8.5 {IU/mL} (Normal) Range: 0.0-13.9 [place] Antibodies <0.2 {AI} (Normal) Range: 0.0-0.9 CATERING MANAGER Antibodies <0.2 {AI} (Normal) Range: 0.0-0.9 :27 HgA1C , Office (99096) HgA1C , Office 6.2 % (Normal) Range: 4.6 - 7.1 :27 Blood Glucose , Office (16919) Blood Glucose , Office 108 (Normal) :45 [...] D deficiency has been defined by the [place] ofMedicine and an Endocrine Society practice guideline as alevel of serum 25-OH vitamin D less than 20 ng/mL (1,2).The Endocrine Society went on to further define vitamin Dinsufficiency as a level between 21 and 29 ng/mL (2).1. IOM ([place] of Medicine). 2010. Dietary reference intakes for calcium and D. [place]: The National Academies Press.2. Rachel MF, Yael NC, Dunia HERRERA, et al. Evaluation, treatment, and prevention of vitamin D deficiency: an Endocrine Society clinical practice guideline. JCEM. 2010; 96(7): 1911-30.Performed at: [address] [id number] Director: Arnold Jefferson PhD, Phone: [phone] 70-Srd-160931:59 Blood Glucose , Office (96905) Blood Glucose , Office 131 (Normal) :58 HgA1C , Office (74366) HgA1C , Office 6.8 % (Normal) Range: [...] mg/dL suggests DIABETES MELLITUS per A.D.A. criteria. 25-Nyg-914312:12 LIPID LDL 104 mg/dL (Normal) Range: 0-130 [...] D deficiency has been defined by the [place] ofMedicine and an Endocrine Society practice guideline as alevel of serum 25-OH vitamin D less than 20 ng/mL (1,2).The Endocrine Society went on to further define vitamin Dinsufficiency as a level between 21 and 29 ng/mL (2).1. IOM ([place] of Medicine). 2010. Dietary reference intakes for calcium and D. [place]: The National Academies Press.2. Rachel MF, Yael MARLEY, Dunia HERRERA, et al. Evaluation, treatment, and prevention of vitamin D deficiency: an Endocrine Society clinical practice guideline. JCEM. 2010; 96(7): 1911-30.Performed at: [address] [id number] Director: Tona Emmanuel MD, Phone: [phone] 65-Kkb-498163:15 HgA1C , Office (34459) HgA1C , Office 5.8 % (Normal) Range: 4.6 - 7.1 53-Bwg-524227:15 Blood Glucose , Office (53318) Blood Glucose , Office 113 (Normal) :30 [...] D deficiency has been defined by the [place] ofMedicine and an Endocrine Society practice guideline as alevel of serum 25-OH vitamin D less than 20 ng/mL (1,2).The Endocrine Society went on to further define vitamin Dinsufficiency as a level between 21 and 29 ng/mL (2).1. IOM ([place] of Medicine). 2010. Dietary reference intakes for calcium and D. [place]: The National Academies Press.2. Rachel MF, Yael NC, Dunia HERRERA, et al. Evaluation, treatment, and prevention of vitamin D deficiency: an Endocrine Society clinical practice guideline. JCEM. 2010; 96(7): 1911-30.Performed at: [address] [id number] Director: Tona Emmanuel MD, Phone: [phone] 90-Gpt-749069:02 CTA NECK W/WO CONTRAST Radiology Report See [...] ologist regarding this report, please call our 53C0zzihriv line @ Dictated on 10/08/11 [address]ER,Loraribed on 10/09/11 0856 by ITS IMPORTSign by Juana Wayne MD on 10/09/11 0857 Sign by: Teo Wayne MD 03-Fhv-291627:00 BILAT SCRN DIGITAL & CAD Radiology Report [...] radiologist regarding this report, please call our 38H9hrxbduf line @ Dictated on 09/18/11 1040 by Ori clifton MD,Deweybed on 09/20/11 0901 by ITS IMPORTSign by Teo Wayne MD on 09/20/11 0902 Sign by: Hema STREETER,Teo 74-Rrq-94573:59 DEXA BONE DENSITY STUDY (HP) Radiology Report [...] regarding this re port, please call our 55L8niavneq line @ Dictated on 09/18/11 [address]ER,Davidranscribed on 09/19/11 1416 by ITS IMPORTSign by Teo Wayne MD on 09/19/11 141 Sign by: Toe Wayne MD 68-Rim-419921:17 HgA1C , Office (93776) HgA1C , Office 5.9 % (Normal) Range: 4.6 - 7.1 16-Yvo-650761:17 Blood Glucose , Office (58607) Blood Glucose , Office 77 (Normal) :44 [...] >240 mg/dL High Risk :44 VIT D,25 06561 22.3 ng/mL (Abnormal) Range: 30.0-100.0 Comments: Vitamin D deficiency has been defined by the [place] ofMedicine and an Endocrine Society practice guideline as alevel of serum 25-OH vitamin D less than 20 ng/mL (1,2).The Endocrine Society went on to further define vitamin Dinsufficiency as a level between 21 and 29 ng/mL (2).1. IOM ([place] of Medicine). 2011. Dietary reference intakes for calcium and D. [place]: The National Academies Press.2. Rachel MF, Yael MARLEY, Dunia HERRERA, et al. Evaluation, treatment, and prevention of vitamin D deficiency: an Endocrine Society clinical practice guideline. JCEM. 2010; 96(7): 1911-30.Performed at: - [facility] [address] [id number] Director: Tona Emmanuel MD, Phone: [phone] HgA1C , Office (91791) HgA1C , Office 6.6 % (Normal) Range: 4.6 - 7.1 :34 Blood Glucose , Office (80866) Blood Glucose , Office 116 (Normal) :50 [...] Range: 4.4-11.0 :50 COMP METABOLIC Comments: appt 06541 GAP 10 (Normal) Range: 5-15 CO2 26.0 [...] {uIU/mL} (Normal) Range: 0.358-3.74 :50 VIT D,25 31917 41.3 ng/mL (Normal) Range: 32.0-100.0 Comments: Effective June 18, 2011 Vitamin D, 25-Hydroxy reference intervals will be changing to 30-100. .Recent studies consider the lower li lalo of 32.0 ng/mL to be athreshold for optimal health.Pepito ANNE. J Nutr. 2004;135(2):317-22.Performed at: [facility]ToHome[address] [id number] Director: Tona Emmanuel MD, Phone: [phone] :[phone] VITAMIN B12 806 pg/mL (Normal) Range: 254-1320 Comments: There is a low frequency possibility that high titers ofintrinsic blocking antibodies may not be completely inactivated during the reaction pretreatment stepof this testing method. If test results are i n conflictwith the clinical diagnosis, patient should be testedfor the presence of intrinsic factor blocking antibodies. 6-Rnz-454501:09 Comp. Metabolic Panel (14) Comments: PATIENT WAS FASTINGPERFORMED BY: [facility] Or[facility]Co[address] [id number] ALT (SGPT) 40 [iU]/L (Normal) Range: 0-40 [...] With LDL/HDL Comments: PATIENT WAS FASTINGPERFORMED BY: [facility] [id number] Ratio LDL Cholesterol Calc 74 mg/dL (Normal) [...] 0.192 {uIU/mL} Comments: PATIENT WAS FASTINGPERFORMED BY: [facility] [id number] 09 (Abnormal) Range: 0.450-4.500 : Vitamin B12 417 pg/mL (Normal) Comments: PATIENT WAS FASTINGPERFORMED BY: [facility] [id number] 09 Range: 211-946 37-Vcc-113861:22 UNILAT LT DIAG DIGITAL & CAD Radiology [...] 02/23/11 151 Sign by: Teo Wayne MD 91-Blm-87459:58 CBCD,SMEAR DIFF Comments: appt 10/24/10 RED CELL [...] {uIU/mL} (Abnormal) Range: 0.358-3.74 :58 VIT D,25 48267 22.0 ng/mL (Abnormal) Comments: appt 10/24/10 Range: 32.0-100.0 Comments: Recent studies consider the lower limit of 32.0 ng/mL to tammy threshold for optimal health.Pepito ANNE. J Nutr. 2004;135(2):317-22.Performed at: [facility] [place] [address]Lab Director: Tona Emmanuel MD, Phone: [phone] :[phone] VITAMIN B12 285 pg/mL (Normal) Range: [...] Thin Prep VialPATIENT NOT FASTINGPERFORMED BY: [facility] [address] [id number] Information: [id number] ([id number]) Note: PAPSMR (Normal) Comments: The Pap smear [...] for malignant neoplasm of the cervixConner Montes, Manager Media (ASCP) 83-Wpz-207422:26 BREAST UNILATERAL Radiology Report See Note (Normal) [...] on 08/28/10 1453 Sign by: ANTHONY PALOMARES 01-Iot-867481:58 UNILAT LT DIAG DIGITAL & CAD Radiology [...] Category 3: Probably Benign Finding - Initial Vkmny-RjuslipaAtxwjz-sj Suggested. A letter regarding these results will be sent tothepatient by the facility within 30 days. Approximately 10% of breast cancers are not detected by mammography. Anormal mammogram should not delay biopsy of a clinically suspiciousabnormality. Dictated on 08/24/10 1206 by ANTHONY PALOMARESTranscribed on 08/24/10 135 by ITS IMPORTSign by ANTHONY PALOMARES on 08/24/10 135 Sign by: ANTHONY PALOMARES 89-Zqb-30065:43 BILAT SCRN DIGITAL & CAD Radiology Report [...] on 08/18/101451 Sign by: ANTHONY PALOMARES MD 3-Rbr-075837:14 HgA1C , Office (71912) HgA1C , Office 6.5 % (Normal) Range: 4.6 - 7.1 8-Ksk-996356:14 Blood Glucose , Office (64723) Blood Glucose , Office 176 (Normal) :30 [...] CREAT 161.2 mg/dL (Normal) : VIT D,25 90278 27.7 ng/mL Range: 32.0-100.0 30 (Abnormal) Comments: Recent studies consider the lower limit of 32.0 ng/mL to tammy threshold for optimal health.Pepito ANNE. J Nutr. 2004;135(2):317- 22.Performed at: - [facility] [id number]Lab Director: Tona Emmanuel MD, Phone: [phone] : VITAMIN B12 449 pg/mL (Normal) Range: [...] {units} (Normal) Comments: PATIENT NOT FASTINGPERFORMED BY: [facility] Mbmbet1560 [facility] [id number] BY: [address] [id number] 0:44 Range: 0-19 Comments: Negative <20 Weak positive 20 - 39 Moderate positive 40 - 59 Strong positive >59 Comment: SPRCS (Normal) Comments: PATIENT NOT FASTINGPERFORMED BY: [facility] [employer] [facility] [id number] BY: [address] [id number] 0:44 Comments: Effective April 25, 2009 order code 251002 CCP IgGAntibodies has been replaced due to an updated reagentversion 3.1. For this reason [facility] has provided youwith a new order code 375330 CCP Antibodies IgG/IgA. 26-Mur-017721:44 Vitamin D Hydroxy Comments: PATIENT NOT FASTINGPERFORMED BY: [facility] Slxxtx2787 [facility] [id number] BY: [address] [id number] (31772) Vitamin D, 25-Hydroxy 30.9 ng/mL (Abnormal) Range: 32.0-100.0 Comments: Recent studies consider the lower limit of 32.0 ng/mL to be athreshold for optimal health.Pepito ANNE. J Nutr. 2004;135(2):317-22. 65-Zla-601663:44 SED RATE ERYTHROCYTE Comments: PATIENT NOT FASTINGPERFORMED BY: [place] OrbitCh[place] 8495870 [facility] [id number] BY: [address] [id number] (06363) Sedimentation Rate-Westergren 4 mm/h (Normal) Range: 0-30 70-Rao-847506:44 C-REACTIVE PROTEIN Comments: PATIENT NOT FASTINGPERFORMED BY: [place] 38[address] [facility] [id number] BY: [address] [id number] (58074) C-Reactive Protein, Quant 2.5 mg/L (Normal) Range: 0.0-4.9 43-Qqb-305598:44 TSH (85091) Comments: PATIENT NOT FASTINGPERFORMED BY: [address] [id number] BY: [address] [id number] TSH 2.050 {uIU/mL} (Normal) Range: 0.450-4.500 36-Krf-570641:44 RHEUMATOID FACTOR-QUANT Comments: PATIENT NOT FASTINGPERFORMED BY: [place] [address] [facility] [id number] BY: [address] [id number] (61400) RA Latex Turbid. 8.4 {IU/mL} (Normal) Range: 0.0-13.9 52-Utt-645254:44 MELI (ANTINUCLEAR ANTIBODY) Comments: PATIENT NOT FASTINGPERFORMED BY: [facility]6370 [facility] [id number] BY: [address] [id number] (70325) MELI Direct Negative (Normal) 82-Wyv-928455:44 CBC WITH MANUAL DIFF Comments: PATIENT NOT FASTINGPERFORMED BY: [place] 38[address]70 [facility] [id number] BY: [address] [id number] Inf ormation: ADD [id number] AND DRAW FEE [id number] (86793) Immature Grans (Abs) 0.0 {x10E3/uL} (Normal) Range: [...] 3.80-5.10 WBC 6.8 {x10E3/uL} (Normal) Range: 4.0-10.5 75-Lyw-296751:44 METABOLIC PANEL, Comments: PATIENT NOT FASTINGPERFORMED BY: CB [facility] Cviprg2551 [facility] [id number] BY: BN [facility] [address] [id number] [facility] (11268) ALT (SGPT) 21 [iU]/L (Normal) Range: 0-40 [...] (Abnormal) Range: 65-99 :33 HgA1C , Office (60185) HgA1C , Office 6.8 % (Normal) Range: 4.6 - 7.1 :33 Blood Glucose , Office (78116) Blood Glucose , Office 135 (Normal) :22 [...] CHOL 157 mg/dL (Normal) Comments: <200 mg/dL Grhyrnklf727-569 mg/dL Borderline>240 mg/dL High Risk :22 LIVER ALB 3.5 g/dL (Normal) Range: 3.4-5.0 ALK P 97 U/L (Normal) Range: 50-136 ALT 21 U/L (Normal) Range: 12-78 AST 16 U/L (Normal) Range: 15-37 D BILI 0.12 mg/dL (Normal) Range: 0.00-0.30 T BILI 0.40 mg/dL (Normal) Range: 0.00-1.00 T PROT 6.5 g/dL (Normal) Range: 6.4-8.2 :22 TSH 1.54 {uIU/mL} Range: 0.358-3.74 (Normal) :22 VIT D,25 47308 36.8 ng/mL (Normal) Range: 32.0-100.0 Comments: Recent studies consider the lower limit of 32.0 ng/mL to tammy threshold for optimal health.Pepito ANNE. J Nutr. 2004;135(2):317-22.Performed at: [facility] ConnectToHome[address] [id number] 296Lab Director: Tona Emmanuel MD, Phone: [phone] :[phone] VITAMIN B12 264 pg/mL (Normal) Range: 254-1320 Comments: There is a low frequency possibility that high titers ofintrinsic blocking antibodies may not be completelyinactivated during the reaction pretreatment stepof this testing method. If test results are in conflictwith the clinical diagnosis, patient should be testedfor the presence of intrinsic factor blocking antibodies. : Amylase, Serum 92 U/L (Normal) Comments: PERFORMED BY: [facility] [id number] Range: 31-124 06-Pig-086121:34 CBC With Differential/Platelet Comments: PERFORMED BY: [facility]CoSaint [facility] CenterWdjhwi4033 [facility] [id number] Baso (Absolute) 0.0 {x10E3/uL} (Normal) Range: 0.0-0.2 [...] 3.80-5.10 WBC 7.5 {x10E3/uL} (Normal) Range: 4.0-10.5 34-Tjb-160411:34 Comp. Metabolic Panel (14) Comments: PERFORMED BY: [facility]CoSaint [facility] CenterTigbvr0776 [facility] [id number] ALT (SGPT) 18 [iU]/L (Normal) Range: 0-40 [...] Serum 57 U/L (Normal) Comments: PERFORMED BY: [facility] Cpyczh7314 [facility] [id number] 13:34 Range: 0-59 03-Feb-20109:00 GALLBLADDER Radiology Report See Note (Normal) Comments: Exam Number: [id number] CLINICAL:Epigastric pain and bloating. ABDOMINAL ULTRASOUND TECHNIQUE:Transabdominal [...] hydronephrosis,etiology indeterminate. Reported By: KATHRYN MUNOZ M.D. 5-Svo-397252:19 CBC WITH MANUAL DIFF Comments: PATIENT NOT FASTINGPERFORMED BY: COR[facility]Z [facility] Gokavk3063 [facility] [id number] Information: [id number] (46231) Baso (Absolute) 0.1 {x10E3/uL} (Normal) Range: 0.0-0.2 [...] 3.80-5.10 WBC 9.9 {x10E3/uL} (Normal) Range: 4.0-10.5 5-Izj-252035:19 METABOLIC PANEL, COMPREHENSIVE Comments: PATIENT NOT FASTINGPERFORMED BY: [facility]CoSaint [facility] CenterHlfoqx7441 [facility] [id number] (79174) ALT (SGPT) 19 [iU]/L (Normal) Range: 0-40 [...] Report See Note (Normal) Comments: Exam Number: [id number] CLINICAL:This is a 69-year-old female patient with [...] as discussed above. Reported By: TEO WAYNE 7-Esb-802266:12 HgA1C , Office (75301) HgA1C , Office 7.1 % (Normal) Range: 4.6 - 7.1 4-Pgt-829976:12 Blood Glucose , Office (01018) Blood Glucose , Office 129 (Normal) 29-Dec-20099:45 [...] CHOL 155 mg/dL (Normal) Comments: <200 mg/dL Qypwzogxo832-294 mg/dL Borderline>240 mg/dL High Risk :45 VIT D,25 73690 42.5 ng/mL (Normal) Range: 32.0-100.0 Comments: Recent studies consider the lower limit of 32.0 ng/mL to tammy threshold for optimal health.Pepito ANNE. J Nutr. 2004;135(2):317-22.Performed at: - [facility] [id number] Director: Tona Emmanuel MD :53 LIPID HDL [...] CHOL 128 mg/dL (Normal) Comments: <200 mg/dL Daohbjnpy671-495 mg/dL Borderline>240 mg/dL High Risk :53 MICROALB:CRE UR MALB:CREAT 19.1 {mg/g_CRE} (Normal) MICROALBUMIN,UR 29.1 mg/L (Normal) UR CREAT 152.0 mg/dL (Normal) :53 TSH 0.93 {uIU/mL} (Normal) Range: 0.358-3.74 :53 VIT D,25 38468 22.7 ng/mL (Abnormal) Range: 32.0-100.0 Comments: Recent studies consider the lower limit of 32.0 ng/mL to tammy threshold for optimal health.Pepito ANNE. J Nutr. 2004;135(2):317-22.Performed At: [facility] [place], [place] [id number] :53 VITAMIN B12 337 pg/mL (Normal) Range: 254-1320 :09 HgA1C , Office (28825) HgA1C , Office 7.1 % (Normal) Range: 4.6 - 7.1 :09 Blood Glucose , Office (66051) Blood Glucose , Office 108 (Normal) 2-Riv-586340:33 KNEE,4 OR MORE VIEWS (MT) Radiology Report See Note (Normal) Comments: Exam Number: [id number] CLINICAL:Pain X-RAY EXAMINATION RIGHT KNEE TECHNIQUE:Three view(s) [...] Report See Note (Normal) Comments: Exam Number: [id number] CLINICAL:Pain X-RAY EXAMINATION: RIGHT TIBIA AND FIBULA [...] (MT) Radiology See Note Comments: Exam Number: [id number] CLINICAL:Pain X-RAY EXAMINATION: RIGHT FEMUR TECHNIQUE:Two views [...] Visualized femur. Reported By: RAYMOND ARRIAGA M.D. 7-Rlk-662826:43 UNILAT LT DIAG DIGITAL & CAD Radiology Report See Note (Normal) Comments: Exam Number: [id number] MAMMOGRAM, UNILATERAL LEFT DIAGNOSTIC DIGITAL AND CAD HISTORYAbnormal mammogram, left breast. TECHNIQUEFull field digital images were obtained in left true lateral, rolledcranio caudal, and spot mediolateral oblique and craniocaudalprojections. CAD images were reviewed. The current study is compared to the examinations of March 12, 2006,and June 21, 2009. FINDINGSThere is a qphfjeey-wc-blcmlk extent of fibroglandular parenchymapresent. There is no [...] wereal so examined with computer-aided detection software (Zingfin, Swype.). Reported By: ANTHONY PALOMARES M.D. 23-Thh-850022:04 BILAT SCRN DIGITAL & CAD Radiology Report See Note (Normal) Comments: Exam Number: [id number] MAMMOGRAM, BILATERAL SCREENING DIGITAL AND CAD HISTORYRoutine [...] werealso examined with computer- aided detection software (payever [facility].). Reported By: ANTHONY PALOMARES M.D. 68-Gzp-278431:03 DEXA BONE DENSITY STUDY () Radiology Report See Note (Normal) Comments: Exam Number: [id number] BONE DENSITOMETRY HISTORYOsteopenia. TECHNIQUE Bone densitometry of the lumbar spine and both hips is now beingperformed. The best criteria for evaluation of osteoporosis is theT-value, which represents the comparison of the patient's bone mass flako expected peak bone mass. For most patients, the mean T-value of N7txbvqca L4 is used to evaluate the lumbar spine. To evalua te the hip,the lower T-value of the femoral neck or total hip is used. FINDINGSIn this patient, the mean T-value of L1 through L4 is 0.3 which isnormal. Bone mineral density is measured at 18.3% greate r than jb5727.Digital lateral view for evaluation of vertebral deformity [...] within normallimits. Reported By: ANTHONY PALOMARES M.D. 47-Xqr-799954:09 BRAIN/HEAD W/WO CONTRAST Radiology Report See Note (Normal) Comments: Exam Number: [id number] CLINICAL:69 year old female with altered mental [...] CREAT 123.4 mg/dL (Normal) 07-Jun-2009 VIT D,25 97451 19.7 ng/mL Range: 32.0-100.0 9:02 (Abnormal) Comments: Recent studies consider the lower limit of 32.0 ng/mL to tammy threshold for optimal health.Pepito ANNE. J Nutr. 2004;135(2):317- 22.Performed At: [facility] [place], [place] [id number] 07-Jun-2009 VITAMIN B12 328 pg/mL (Normal) Range: 254-1320 9:02 11-Feb-2009 Homocyst(e)ine, Plasma 9.8 umol/L (Normal) Comments: PERFORMED BY: [facility] [id number] 14:28 Range: 0.0-15.0 11-Feb-2009 Methylmalonic Acid, 336 nmol/L (Normal) Comments: PERFORMED BY: [facility] [id number] 14:28 Serum Range: 73-376 Comments: The reference range for methylmalonic acid has been set at +3sd abovethe mean for healthy blood bank donors. In the clinical assessment ofpatients with megaloblastic anemias a cutoff of +3sd provides gr eaterspecificity in the diagnosis of the vitamin deficiency states,despite the sacrifice of some sensitivity. 11-Feb-2009 TSH 2.700 {uIU/mL} Comments: PERFORMED BY: [employer] [address] [id number] 14:28 (Normal) Range: 0.450-4.500 11-Feb-2009 Vitamin B12 231 pg/mL (Normal) Comments: PERFORMED BY: [employer] [address] [id number] 14:28 Range: 211-911 7-Ryl-184793:09 HAND,MIN 3 VIEWS (MT) Radiology Report See Note (Normal) Comments: Exam Number: [id number] RIGHT WRIST CLINICAL DATAFell and injured the [...] osteoarthritis right hand. Reported By: FERNANDO TUCKER 1-Dcp-754302:09 WRIST,MIN 3 VIEWS (MT) Radiology Report See Note (Normal) Comments: Exam Number: [id number] RIGHT WRIST CLINICAL DATAFell and injured the [...] COMPREHENSIVE Comments: PATIENT WAS FASTINGPERFORMED BY: [facility]CoSaint [facility] CenterWllafm2057 [facility] [id number] 38258) A/G Ratio 1.9 (Normal) Range: 1.1-2.5 Albumin, [...] 141 mmol/L (Normal) Range: 135-145 :42 TSH (22151) Comments: PATIENT WAS FASTINGPERFORMED BY: [employer] Cnrakk5477 [facility] [id number] TSH 4.980 {uIU/mL} (Abnormal) Range: 0.450-4.500 :42 MICROALBUMIN: CREATININE RATIO Comments: PATIENT WAS FASTINGPERFORMED BY: [facility] SchoolSaint [facility] CenterNwvgxj0637 [facility] [id number] (63496) AND (54060) Creatinine, Urine 130.9 mg/dL (Normal) Range: 15.0-278.0 Microalb/Creat Ratio 66.4 {ug/mg_creat} (Abnormal) Range: 0.0-30.0 Microalbumin, Urine 86.9 ug/mL (Abnormal) Range: 0.0-17.0 :42 LIPID PANEL (06607) Comments: PATIENT WAS FASTINGPERFORMED BY: [employer] Lbrfkf0563 [facility] [id number] Cholesterol, Total 148 mg/dL (Normal) Range: 100-199 HDL Cholesterol 42 mg/dL (Normal) Comments: According to ATP-III Guidelines, HDL-C >59 mg/dL is considered anegative risk factor for CHD. LDL Cholesterol Calc 78 mg/dL (Normal) Range: 0-99 LDL/HDL Ratio 1.9 {ratio_units} (Normal) Range: 0.0-3.2 Triglycerides 141 mg/dL (Normal) Range: 0-149 VLDL Cholesterol Priscilla 28 mg/dL (Normal) Range: 5-40 :42 CBC WITH MANUAL DIFF (62582) Comments: PATIENT WAS FASTINGClinical Information: ADD DRAW FEE [id number] ADD J 80725 PERFORMED BY: [facility] [employer]) Ofzpyt2402 [facility] [id number] Baso (Absolute) 0.1 {x10E3/uL} (Normal) Range: 0.0-0.2 [...] (CYANOCOBALAMIN) Comments: PATIENT WAS FASTINGPERFORMED BY: [facility]Saint [facility] CenterQuzkon1421 [facility] [id number] (71629) Vitamin B12 232 pg/mL (Normal) Range: 211-911 0-Jtm-451626:06 Blood Glucose , Office (10747) Blood Glucose , Office 155 (Normal) :27 [...] (Normal) Range: 0.34-4.82 :27 HgA1C , Office (41881) Comments: done>Wf. HgA1C , Office 6.2 % (Normal) Range: 4.6 - 7.1 :27 Blood Glucose , Office (78490) Comments: done>Wf. Blood Glucose , Office 152 [...] for patient's is the eGFRmultiplied by 1.212. [facility] Laboratory uses the abbreviated Modification [...] Disease W/O Kidney Disease>/= 90 Stage One Biqvgj58 - 89 Stage Two Suspect Decrease d [...] T PROT 7.3 g/dL (Normal) Range: 6.4-8.2 1-Qos-172249:55 LIPID CHOL 287 mg/dL (Abnormal) Comments: <200 [...] mg/dL VLDL 50 mg/dL (Abnormal) Range: 40 3-Xkj-563671:55 MICROALB:CRE UR MALB:CREAT 28.3 {mg/g_CRE} (Normal) MICROALBUMIN,UR 41.7 mg/L (Normal) UR CREAT 147.6 mg/dL (Normal) :55 TSH 5.53 {uIU/mL} (Abnormal) Range: 0.34-4.82 :25 TSH 0.16 {uIU/mL} (Abnormal) Range: 0.34-4.82 :31 HgA1C , Office (21687) Comments: done HgA1C , Office 6.5 % (Normal) Range: 4.6 - 7.1 :31 Blood Glucose , Office (89682) Comments: done Blood Glucose , Office 128 (Normal) :01 TSH 5.15 {uIU/mL} (Abnormal) Range: 0.34-4.82 :12 HgA1C , Office (44053) Comments: done HgA1C , Office 6.2 % (Normal) Range: 4.6 - 7.1 :12 Blood Glucose , Office (18067) Comments: done Blood Glucose , Office 187 [...] Serum 117 ng/mL (Normal) Comments: PERFORMED BY: [facility] [id number] Range: 10-291 :33 Iron and TIBC Comments: PERFORMED BY: [facility] [id number] Iron Bind.Cap.(TIBC) 304 ug/dL (Normal) Range: 250-450 Iron Saturation 26 % (Normal) Range: 15-55 Iron, Serum 78 ug/dL (Normal) Range: 35-155 UIBC 226 ug/dL (Normal) Range: 150-375 : Vitamin B12 412 pg/mL (Normal) Comments: PERFORMED BY: [facility] [id number] 33 Range: 211-911 :56 LIPID CHOL 222 [...] (Normal) Range: 6.4-8.2 :07 HgA1C , Office (30250) Comments: done HgA1C , Office 5.9 % (Normal) Range: 4.6 - 7.1 :07 Blood Glucose , Office (47778) Comments: done Blood Glucose , Office 132 [...] mg/dL (Abnormal) Range: 34-200 Comments: Performed At: [address] [id number] :08 IRON+TIBC IRON SATURATION 17.9 % (Normal) [...] mg/dL (Normal) Range: 34-200 Comments: Performed At: [address] [id number] :56 IRON+TIBC IRON SATURATION 17.1 % (Normal) [...] 1.49 INDETERMINANT > OR = 1.50 SUGGEST AR :05 CPK TOTAL 149 U/L (Normal) Comments: Precautions*: NOT APPLICABLEINDICATE CK '1', '2', '3', OR 'R' FOR RANDOM: 2 Range: 215 :05 CPKMB 1.1 ng/mL (Normal) Comments: Precautions*: NOT APPLICABLEINDICATE CK '1', '2', '3', OR 'R' FOR RANDOM: 2 Range: 0.0-5.0 Comments: CK-MB and RI Interpretation MB Relative Index Non-AMI <or= 5 NA Indeterminate > 5 <or= 4 AMI > 5 > 4 9-Ujz-824771:05 TROPONIN-I < 0.04 ng/mL (Normal) Comments: Precautions*: NOT APPLICABLEINDICATE CK '1', '2', '3', OR 'R' FOR RANDOM: 2 Comments: TROPONIN-I EXPECTED VALUES < 0.50 NEGATIVE 0.50 - 1.49 INDETERMINANT > OR = 1.50 SUGGEST AR :15 PRO TIME Comments: Precautions*: NOT APPLICABLE INR 1.0 (Normal) PROTIME 12.6 s (Normal) Range: 11.7-13.3 :15 TROPONIN-I < 0.04 ng/mL (Normal) Comments: Precautions*: NOT APPLICABLE Comments: TROPONIN-I EXPECTED VALUES < 0.50 NEGATIVE 0.50 - 1.49 INDETERMINANT > OR = 1.50 SUGGEST AR :00 BMP Comments: COMMENTS: FEARONPrecautions*: NOT APPLICABLEINDICATE [...] 1.49 INDETERMINANT > OR = 1.50 SUGGEST AR :48 HgA1C , Office (54807) HgA1C , Office 6.4 % (Normal) Range: 4.6 - 7.1 :48 Blood Glucose , Office (38611) Blood Glucose , Office 113 (Normal) Plan [...] Indication: Double vision Double vision : Reviewed Cutter Machine Letter Indication: Double vision Fatty liver : [...] BMI 36.0-36.9,adult Right hip pain : Reviewed Cutter Machine Letter Indication: Right hip pain Right hip [...] (monoclonal gammopathy of unknown significance) : Reviewed Cutter Machine Letter- stable and discharged from onc Indication: [...] Fall down steps, initial encounter : Reviewed Cutter Machine Letter Indication: Fall down steps, initial encounter [...] infarction, unspecified Cerebral infarction, unspecified : Reviewed Cutter Machine Letter Indication: Cerebral infarction, unspecified Upper respiratory [...] Planned Observations CBC, PLATELETS & AUT DIFF (46425)Indication: Other vitamin B12 deficiency anemia On: :17 Request TSH (70603)Indication: Abnormal TSH On: :38 Request T4, FREE (THYROXINE) (15108)Indication: Abnormal TSH On: :38 Request T3, FREE (TRIDOTHYRONINE) (97979)Indication: Abnormal TSH On: :38 Request ANTI-LIVER/KIDNEY MICROSOMAL ANTIBODY (51852)Indication: Elevated liver enzymes On: 72-Wnu-944810:34 Request TSH (51209)Indication: Abnormal TSH On: :31 Request T4, FREE (THYROXINE) (14699)Indication: Abnormal TSH On: :31 Request T3, FREE (TRIDOTHYRONINE) (45519)Indication: Abnormal TSH On: 92-Ivi-348590:31 Request BETA-2 MICROGLOBULIN (32532)Indication: Abnormal blood chemistry On: 34-Jjx-695143:08 Request Urinalysis, Office (68822)Indication: Urinary frequency On: 26-Qco-596029:38 Request CBC WITH MANUAL DIFF (51186)Indication: Therapeutic drug monitoring On: :57 Request Metabolic Panel, Basic (81998)Indication: Therapeutic drug monitoring On: :57 Request Methymalonic Acid, Serum (37038)Indication: Vitamin B 12 deficiency On: 87-Yog-377700:51 Request CALCIFIDIOL (02474) VIT D 25Indication: Vitamin D deficiency, unspecified On: 61-Ggx-536245:45 Request LIPID PANEL (92092)Indication: Other and unspecified hyperlipidemia On: 76-Gbm-674818:45 Request CALCIFIDIOL (92891) VIT D 25Indication: Uncontrolled type II diabetes mellitus On: :46 Request TSH (26478)Indication: Uncontrolled type II diabetes mellitus On: :46 Request URINALYSIS, W/ MICRO (34886)Indication: Uncontrolled type II diabetes mellitus On: :46 Request MICROALBUMIN: CREATININE RATIO (24975) AND (55168)Indication: Uncontrolled type II diabetes mellitus On: :46 Request METABOLIC PANEL, COMPREHENSIVE (51520)Indication: Uncontrolled type II diabetes mellitus On: :46 Request LIPID PANEL (56485)Indication: Uncontrolled type II diabetes mellitus On: :45 Request CBC W/AUTO DIFF WBC (59253)Indication: Uncontrolled type II diabetes mellitus On: :45 Request Rapid Flu (64886 x 2)Indication: Flu-like symptoms On: 51-Ynu-159836:12 Request VITAMIN B-12 (CYANOCOBALAMIN) (15358)Indication: Vitamin B 12 deficiency On: 95-Cmx-042557:45 Request FECAL OCCULT- Tubes sent home (71998)Indication: Encounter for screening for malignant neoplasm of colon (Renamed from Special screening for malignant neoplasms, colon) On: 73-Hyd-325024:35 Request THYROXINE FREE (50661)Indication: Tachycardia On: 4-Hrd-981397:04 Request FREE TRIDOTHYRONINE (T3) (09337)Indication: Tachycardia On: 9-Khn-341954:04 Request TSH (THYROID STIMULATING HORMONE) (91245)Indication: Tachycardia On: 0-Jpk-627661:04 Request serum immunofixation (95604)Indication: MGUS (monoclonal gammopathy of unknown significance) On: 31-Ejf-216639:14 Request urine immunofixation (19680)Indication: MGUS (monoclonal gammopathy of unknown significance) On: 12-Aex-359448:14 Request serum free light chains (67457)Indication: MGUS (monoclonal gammopathy of unknown significance) On: 12-Bve-033074:14 Request CBC W/AUTO DIFF WBC ([id number])Indication: Diabetes mellitus type 2, controlled On: 47-Zed-591601:13 Request MICROALBUMIN: CREATININE RATIO (47742) AND (40512)Indication: Diabetes mellitus type 2, controlled On: 92-Xwk-856763:13 Request METABOLIC PANEL, COMPREHENSIVE (02120)Indication: Diabetes mellitus type 2, controlled On: 59-Mff-556521:13 Request LIPID PANEL (24018)Indication: Mixed hyperlipidemia On: 14-Erd-467709:13 Request VITAMIN B-12 (CYANOCOBALAMIN) (40071)Indication: Other vitamin B12 deficiency anemia On: :12 Request CBC (AUTO) (58284)Indication: Other vitamin B12 deficiency anemia On: 54-Imq-448071:12 Request Vitamin D Hydroxy ([id number])Indication: Vitamin D deficiency, unspecified On: 30-Tfd-107613:12 Request LIPID PANEL (34435)Indication: Mixed hyperlipidemia On: 2-Nur-199923:42 Request METABOLIC PANEL, COMPREHENSIVE (20347)Indication: Benign essential hypertension (Renamed from Benign essential HTN) On: 6-Sul-521674:41 Request MICROALBUMIN: CREATININE RATIO (54093) AND ([id number])Indication: Benign essential hypertension (Renamed from Benign essential HTN) On: :41 Request SPEP ([id number])Indication: Anemia, unspecified On: 47-Rps-033574:17 Request UPEP (40879)Indication: Anemia, unspecified On: 19-Yln-487455:17 Request CBC W/AUTO DIFF WBC ([id number])Indication: Iron (Fe) deficiency anemia On: 0-Rnl-478133:38 Request TSH (05561)Indication: Acquired hypothyroidism On: 6-Qnu-374497:38 Request TSH ([id number])Indication: Acquired hypothyroidism On: 85-Zgr-261673:34 Request SPEP ([id number])Indication: Iron (Fe) deficiency anemia On: 11-Ffe-124913:34 Request UPEP (13806)Indication: Iron (Fe) deficiency anemia On: 07-Fgi-172308:34 Request IRON BINDING CAPACITY (TIBC) ([id number])Indication: Iron (Fe) deficiency anemia On: 26-Khd-780410:34 Request FERRITIN ([id number])Indication: Iron (Fe) deficiency anemia On: 70-Qzy-075418:34 Request IRON (97291)Indication: Iron (Fe) deficiency anemia On: 82-Utc-424819:34 Request CBC, PLATELETS & AUT DIFF (12102)Indication: Other vitamin B12 deficiency anemia On: :34 Request VITAMIN B-12 (CYANOCOBALAMIN) (86456)Indication: Other vitamin B12 deficiency anemia On: 25-Efk-000729:33 Request Hemoglobin Glyclated (HGB A1C) (01527)Indication: Diabetes mellitus type 2, controlled On: 05-Goa-343979:33 Request CBC, PLATELETS & AUT DIFF (23541)Indication: Other vitamin B12 deficiency anemia On: :31 Request VITAMIN B-12 (CYANOCOBALAMIN) (34351)Indication: Other vitamin B12 deficiency anemia On: :30 Request METABOLIC PANEL, COMPREHENSIVE (67460)Indication: Benign essential hypertension (Renamed from Benign essential HTN) On: :30 Request LIPID PANEL (29764)Indication: Other and unspecified hyperlipidemia On: :30 Request Vitamin D Hydroxy ([id number])Indication: Vitamin D deficiency, unspecified On: : Request TQMVD-WHBFHDAWBTG-LCKQL ([id number])Indication: Fatty liver On: : Request ZLONO-YIKUTWVOCGL-EJAAQ ([id number])Indication: Fatty liver On: 96-Iwr-781282:24 Request LIPID PANEL (96786)Indication: Mixed hyperlipidemia On: :23 Request TSH ([id number])Indication: Acquired hypothyroidism On: 94-Vfk-566862:23 Request MICROALBUMIN: CREATININE RATIO (28339) AND (16061)Indication: Diabetes mellitus type 2, controlled On: 08-Rfm-683110:23 Request METABOLIC PANEL, COMPREHENSIVE (00520)Indication: Diabetes mellitus type 2, controlled On: 99-Amf-601388:23 Request Vitamin D Hydroxy (25396)Indication: Vitamin D deficiency, unspecified On: 14-Aea-164374:23 Request CBC, PLATELETS & AUT DIFF (20887)Indication: Other vitamin B12 deficiency anemia On: 54-Tvg-320059:20 Request VITAMIN B-12 (CYANOCOBALAMIN) ([id number])Indication: Other vitamin B12 deficiency anemia On: 09-Bko-045616:20 Request Vitamin D Hydroxy (81757)Indication: Vitamin D deficiency, unspecified On: 59-Mro-027705:38 Request VITAMIN B-12 (CYANOCOBALAMIN) (52067)Indication: Other vitamin B12 deficiency anemia On: :38 Request CBC W/AUTO DIFF WBC ([id number])Indication: Other vitamin B12 deficiency anemia On: 85-Aez-741869:37 Request TSH (71802)Indication: Acquired hypothyroidism On: 40-Igq-121044:37 Request LIPID PANEL (16022)Indication: Mixed hyperlipidemia On: :37 Request EUSDH-CXSFLIISBFL-CDOFR (22861)Indication: Fatty liver On: :08 Request PTT (Activated Partial Thromboplastin Time) (47784)Indication: Fatty liver On: : Request PT (Prothrobim Time) (25368)Indication: Fatty liver On: :08 Request Vitamin D Hydroxy (37088)Indication: Vitamin D deficiency, unspecified On: 85-Lfv-694874: Request VITAMIN B-12 (CYANOCOBALAMIN) (91200)Indication: Other vitamin B12 deficiency anemia On: : Request CBC W/AUTO DIFF WBC (22137)Indication: Diabetes mellitus type 2, controlled On: : Request METABOLIC PANEL, COMPREHENSIVE (10578)Indication: Diabetes mellitus type 2, controlled On: 63-Zad-427079: Request LIPID PANEL (37172)Indication: Mixed hyperlipidemia On: : Request LIPID PANEL (59630)Indication: HYPERTENSION, NOS On: 5-Azr-639251:40 Request CBC WITH MANUAL DIFF ([id number])Indication: HYPERTENSION, NOS On: 2-Gcj-010429:40 Request METABOLIC PANEL, COMPREHENSIVE (73241)Indication: HYPERTENSION, NOS On: :40 Request FECAL OCCULT- Tubes sent home (04055)Indication: Anemia, unspecified On: 47-Oor-296972:38 Request IRON (62790)Indication: Anemia, unspecified On: :38 Request CBC WITH MANUAL DIFF ([id number])Indication: HYPERTENSION, NOS On: 5-Wdw-635098:29 Request METABOLIC PANEL, COMPREHENSIVE (42809)Indication: Uncontrolled type II diabetes mellitus On: 8-Tqg-928945:28 Request TSH (THYROID STIMULATING HORMONE) (63035)Indication: Acquired hypothyroidism On: 03-Hek-072771:08 Request HgA1C , Office (61012)Indication: Diabetes mellitus type 2, controlled On: 45-Nzn-175170:55 Request VITAMIN B-12 (CYANOCOBALAMIN) (49968)Indication: Other vitamin B12 deficiency anemia On: 1-Xhp-339773:17 Request LIPID PANEL (76323)Indication: Other and unspecified hyperlipidemia On: :17 Request MICROALBUMIN: CREATININE RATIO (93042) AND (50498)Indication: Uncontrolled type II diabetes mellitus On: : Request METABOLIC PANEL, COMPREHENSIVE (88788)Indication: Uncontrolled type II diabetes mellitus On: : Request HgA1C , Office (00816)Indication: Diabetes mellitus type 2, controlled On: :25 Request LIPID PANEL (71346)Indication: Other and unspecified hyperlipidemia On: : Request METABOLIC PANEL, COMPREHENSIVE (20931)Indication: Diabetes mellitus type 2, controlled On: : Request MICROALBUMIN: CREATININE RATIO (36519) AND (65856)Indication: Diabetes mellitus type 2, controlled On: : Request VITAMIN B-12 (CYANOCOBALAMIN) (24385)Indication: Other vitamin B12 deficiency anemia On: : Request CBC, PLATELETS & AUT DIFF (61828)Indication: Other vitamin B12 deficiency anemia On: :11 Request Vitamin D Hydroxy (49440)Indication: Vitamin D deficiency, unspecified On: 81-Jju-494370:10 Request Blood Glucose , Office (36622)Indication: Diabetes mellitus type 2, controlled On: :29 Request LIPID PANEL (06612)Indication: Other and unspecified hyperlipidemia On: :26 Request Vitamin D Hydroxy (54196)Indication: Vitamin D deficiency, unspecified On: : Request VITAMIN B-12 (CYANOCOBALAMIN) (04230)Indication: Other vitamin B12 deficiency anemia On: : Request METABOLIC PANEL, COMPREHENSIVE (88372)Indication: Benign essential hypertension (Renamed from Benign essential HTN) On: : Request MICROALBUMIN: CREATININE RATIO (20594) AND (68359)Indication: Uncontrolled type II diabetes mellitus On: : Request Sputum Culture (45126)Indication: Chronic cough On: 4-Fzi-871262:58 Request RANI CULTURE-OTHER (78075)Indication: Sore throat On: 18-Nhf-805229:06 Request Urinalysis, Office (56053)Indication: Abnormal urine On: :14 Request RANI CULTURE-OTHER (03165)Indication: Abnormal urine On: :14 Request CCP ANTIBODY (17842)Indication: History of poliomyelitis (Renamed from H/O acute poliomyelitis) On: : Request ANTI-Sm (ANTI [place] ANTIBODY) (04214) test code [id number]: History of poliomyelitis (Renamed from H/O acute poliomyelitis) On: : Request RHEUMATOID FACTOR-QUANT (59321) test code [id number]: History of poliomyelitis (Renamed from H/O acute poliomyelitis) On: : Request Vitamin D Hydroxy (80150)Indication: Vitamin D deficiency, unspecified On: 70-Isd-610202:15 Request LIPID PANEL (35953)Indication: Other and unspecified hyperlipidemia On: :15 Request TSH (96901)Indication: Acquired hypothyroidism On: 95-Exh-775444:15 Request METABOLIC PANEL, COMPREHENSIVE (30342)Indication: Diabetes mellitus type 2, controlled On: 24-Ehj-527654:14 Request VITAMIN B-12 (CYANOCOBALAMIN) (14968)Indication: Other vitamin B12 deficiency anemia On: 67-Yss-954213:08 Request MICROALBUMIN: CREATININE RATIO (98032) AND (21045)Indication: Uncontrolled type II diabetes mellitus On: 69-Ilw-624703:30 Request METABOLIC PANEL, COMPREHENSIVE (34403)Indication: Uncontrolled type II diabetes mellitus On: 41-Zmn-674106:30 Request TSH (33914)Indication: Acquired hypothyroidism On: 94-Hzv-826459:30 Request Vitamin D Hydroxy (22818)Indication: Vitamin D deficiency, unspecified On: 89-Ama-005899:30 Request LIPID PANEL (77894)Indication: Other and unspecified hyperlipidemia On: 22-Ggh-613752:29 Request LIPID PANEL (65195)Indication: Other and unspecified hyperlipidemia On: 01-Asu-557245:51 Request TSH (87517)Indication: Acquired hypothyroidism On: 12-Jnn-080492:50 Request Vitamin D Hydroxy (17507)Indication: Vitamin D deficiency, unspecified On: 71-Sbt-395711:50 Request CBC WITH MANUAL DIFF (46822)Indication: Diabetes mellitus type 2, controlled On: 66-Srs-648808:50 Request METABOLIC PANEL, COMPREHENSIVE (74870)Indication: Diabetes mellitus type 2, controlled On: 75-Tom-539321:50 Request Vitamin D Hydroxy (38255)Indication: Vitamin D deficiency, unspecified On: :44 Request VITAMIN B-12 (CYANOCOBALAMIN) (23667)Indication: Other vitamin B12 deficiency anemia On: :44 Request CBC WITH MANUAL DIFF (23149)Indication: Anemia, unspecified On: :43 Request METABOLIC PANEL, COMPREHENSIVE (91416)Indication: Diabetes mellitus type 2, controlled On: :43 Request MICROALBUMIN: CREATININE RATIO (59880) AND (97699)Indication: Diabetes mellitus type 2, controlled On: :43 Request LIPID PANEL (16611)Indication: Other and unspecified hyperlipidemia On: :43 Request TSH (37889)Indication: Acquired hypothyroidism On: :43 Request Vitamin D Hydroxy (14307)Indication: Vitamin D deficiency, unspecified On: :03 Request LIPID PANEL (35604)Indication: Other and unspecified hyperlipidemia On: :03 Request CBC WITH MANUAL DIFF (69525)Indication: Diabetes mellitus type 2, controlled On: :02 Request METABOLIC PANEL, COMPREHENSIVE (05673)Indication: Diabetes mellitus type 2, controlled On: 6-Jrh-623106:02 Request VITAMIN B-12 (CYANOCOBALAMIN) (52442)Indication: Other vitamin B12 deficiency anemia On: 1-Kgy-087858:36 Request Comments: Lot #[id number]-left deltoidDose-1 mlgiven by: Dani Rivera LPN LIPID PANEL (81898)Indication: Other and unspecified hyperlipidemia On: :28 Request METABOLIC PANEL, COMPREHENSIVE (41726)Indication: Uncontrolled type II diabetes mellitus On: :28 Request TSH ([id number])Indication: Acquired hypothyroidism On: :28 Request Vitamin D Hydroxy (65144)Indication: Vitamin D deficiency, unspecified On: :22 Request CBC WITH MANUAL DIFF ([id number])Indication: Anemia, unspecified On: :22 Request CBC WITH MANUAL DIFF (89709)Indication: Other vitamin B12 deficiency anemia On: 9-Lxi-759046:20 Request Blood Glucose , Office (94987)Indication: Uncontrolled type II diabetes mellitus On: :15 Request Comments: 149 HgA1C , Office (95638)Indication: Uncontrolled type II diabetes mellitus On: :15 Request METABOLIC PANEL, COMPREHENSIVE (27828)Indication: Other and unspecified hyperlipidemia On: :22 Request LIPID PANEL (42142)Indication: Other and unspecified hyperlipidemia On: :22 Request TSH (78551)Indication: Acquired hypothyroidism On: :22 Request HEMOGLOBIN GLYCLATED (HGB A1C) (37181)Indication: Abnormal glucose tolerance test On: 45-Muh-414157:20 Request VITAMIN B-12 (CYANOCOBALAMIN) (75647)Indication: Other vitamin B12 deficiency anemia On: 30-Vjv-899771:17 Request Vitamin D Hydroxy (78541)Indication: Vitamin D deficiency, unspecified On: :21 Request VITAMIN B-12 (CYANOCOBALAMIN) (83573)Indication: Other vitamin B12 deficiency anemia On: 4-Hkn-184558:20 Request LIPID PANEL (70224)Indication: Abnormal glucose tolerance test On: :20 Request CBC WITH MANUAL DIFF (73421)Indication: Abnormal glucose tolerance test On: 6-Nfj-241763:20 Request METABOLIC PANEL, COMPREHENSIVE (64652)Indication: Abnormal glucose tolerance test On: :20 Request METABOLIC PANEL, COMPREHENSIVE (93939)Indication: Abnormal glucose tolerance test On: :59 Request CBC WITH MANUAL DIFF (29969)Indication: Abnormal glucose tolerance test On: 4-Psx-043326:59 Request Vitamin D Hydroxy (38329)Indication: Vitamin D deficiency, unspecified On: 7-Sqt-924678:59 Request VITAMIN B-12 (CYANOCOBALAMIN) (49067)Indication: Other vitamin B12 deficiency anemia On: 8-Fpx-594062:59 Request TSH (43911)Indication: Acquired hypothyroidism On: 4-Gva-757831:58 Request LIPID PANEL (12347)Indication: Other and unspecified hyperlipidemia On: 9-Hkg-822308:58 Request CCP ANTIBODY (90582)Indication: Pain in unspecified joint On: 88-Ffv-961931:22 Request VITAMIN B-12 (CYANOCOBALAMIN) (34631)Indication: Other vitamin B12 deficiency anemia On: 8-Udf-172058:10 Request Vitamin D Hydroxy (61288)Indication: Vitamin D deficiency, unspecified On: 8-Qsd-869328:10 Request MICROALBUMIN: CREATININE RATIO (90435) AND (94780)Indication: Uncontrolled type II diabetes mellitus On: :10 Request CBC WITH MANUAL DIFF (28444)Indication: Uncontrolled type II diabetes mellitus On: 2-Alo-716828:10 Request METABOLIC PANEL, COMPREHENSIVE (55240)Indication: Benign essential hypertension (Renamed from Benign essential HTN) On: 0-Ijl-148769:09 Request LIPID PANEL (23325)Indication: Other and unspecified hyperlipidemia On: 4-Ofz-968644:09 Request TSH (55015)Indication: Acquired hypothyroidism On: 3-Qzl-605466:39 Request VITAMIN B-12 (CYANOCOBALAMIN) (06327)Indication: Other vitamin B12 deficiency anemia On: 7-Wfb-503453:37 Request HEPATIC FUNCTION PANEL (46782)Indication: Other and unspecified hyperlipidemia On: 6-Crl-511242:36 Request LIPID PANEL (83830)Indication: Other and unspecified hyperlipidemia On: 0-Ydj-856926:36 Request Vitamin D Hydroxy (84262)Indication: Vitamin D deficiency, unspecified On: 5-Igz-236365:36 Request METABOLIC PANEL, COMPREHENSIVE (25477)Indication: Benign essential hypertension (Renamed from Benign essential HTN) On: 9-Oyr-056497:35 Request LIPID PANEL (44586)Indication: Other and unspecified hyperlipidemia On: 1-Kzg-271571:35 Request Vitamin D Hydroxy (67066)Indication: Vitamin D deficiency, unspecified On: 1-Ril-174758:30 Request Vitamin D Hydroxy (77401)Indication: Vitamin D deficiency, unspecified On: 67-Xwi-730117:10 Request MICROALBUMIN: CREATININE RATIO (51811) AND (95068)Indication: Uncontrolled type II diabetes mellitus On: 03-Mjo-848532:07 Request LIPID PANEL (51477)Indication: Other and unspecified hyperlipidemia On: :07 Request TSH (59031)Indication: Acquired hypothyroidism On: :07 Request VITAMIN B-12 (CYANOCOBALAMIN) (83308)Indication: Other vitamin B12 deficiency anemia On: 44-Fyu-133566:42 Request Vitamin D Hydroxy (36483)Indication: Vitamin D deficiency, unspecified On: :50 Request IRON BINDING CAPACITY (TIBC) (46069)Indication: Iron (Fe) deficiency anemia On: :50 Request LDH (LD) (LACTATE DEHYDROGENASE) (97890)Indication: Iron (Fe) deficiency anemia On: :50 Request FERRITIN (30207)Indication: Iron (Fe) deficiency anemia On: :50 Request IRON (12901)Indication: Iron (Fe) deficiency anemia On: :50 Request CBC WITH MANUAL DIFF (54003)Indication: Iron (Fe) deficiency anemia On: :50 Request HEPATIC FUNCTION PANEL (69296)Indication: Other and unspecified hyperlipidemia On: :44 Request LIPID PANEL (84044)Indication: Other and unspecified hyperlipidemia On: :44 Request CBC WITH MANUAL DIFF (80768)Indication: Other vitamin B12 deficiency anemia On: 8-Wud-231111:54 Request MICROALBUMIN: CREATININE RATIO (86597) AND (33827)Indication: Glucose intolerance (no malabsorption) On: 2-Udp-470242:54 Request METABOLIC PANEL, COMPREHENSIVE (56535)Indication: HYPERTENSION, NOS On: :54 Request LIPID PANEL (02170)Indication: Other and unspecified hyperlipidemia On: :53 Request VITAMIN B-12 (CYANOCOBALAMIN) (75199)Indication: Other vitamin B12 deficiency anemia On: :53 Request IRON (19264)Indication: Iron (Fe) deficiency anemia On: :53 Request Vitamin D Hydroxy (85663)Indication: Osteopenia On: 6-Yra-247808:49 Request Methylmalonic acid, serum 08040Amuxconlmd: Other vitamin B12 deficiency anemia On: :03 Request VITAMIN B-12 (CYANOCOBALAMIN) (72272)Indication: Other vitamin B12 deficiency anemia On: 78-Upx-094436:03 Request TSH (13862)Indication: Acquired hypothyroidism On: :03 Request HgA1C , Office (05858)Indication: Abnormal glucose tolerance test On: 6-Zux-723136:06 Request TSH (11117)Indication: Acquired hypothyroidism On: :35 Request LIPID PANEL (65841)Indication: Other and unspecified hyperlipidemia On: :35 Request METABOLIC PANEL, COMPREHENSIVE (92458)Indication: SOB (shortness of breath) on exertion On: :34 Request CBC WITH MANUAL DIFF (96203)Indication: SOB (shortness of breath) on exertion On: :34 Request TSH (37709)Indication: Acquired hypothyroidism On: 1-Ogq-496847:46 Request Comments: do in 6 weeks TSH (34225)Indication: Acquired hypothyroidism On: 83-Ezt-814343:15 Request Comments: DO IN 6 WEEKS WITH MEDICATION CHANGE TSH (24616)Indication: Other malaise and fatigue On: 69-Tcs-04978:49 Request Iron Binding Capacity (TIBC) (19918)Indication: Iron (Fe) deficiency anemia On: 98-Zfz-920795:43 Request Ferritin (06893)Indication: Iron (Fe) deficiency anemia On: 18-Fmm-111575:43 Request Iron (32177)Indication: Iron (Fe) deficiency anemia On: 05-Dit-634824:43 Request HEPATIC FUNCTION PANEL (69908)Indication: Mixed hyperlipidemia On: 41-Qbb-274399:42 Request LIPID PANEL (76714)Indication: Mixed hyperlipidemia On: 60-Fwq-631251:42 Request Comments: do in 3 months HEPATIC FUNCTION PANEL (21090)Indication: Mixed hyperlipidemia On: 9-Hyp-279373:11 Request LIPID PANEL (98230)Indication: Mixed hyperlipidemia On: 1-Dge-843528:11 Request Comments: do in 3 mo TSH (94961)Indication: Acquired hypothyroidism On: Request VITAMIN B-12 (CYANOCOBALAMIN) (57691)Indication: Anemia, unspecified On: Request LDH (LD) (LACTATE DEHYDROGENASE) (09343)Indication: Anemia, unspecified On: Request RETICULOCYTE COUNT MANUL (00800)Indication: Anemia, unspecified On: Request IRON BINDING CAPACITY (TIBC) (26451)Indication: Anemia, unspecified On: Request IRON (73895)Indication: Anemia, unspecified On: Request FOLIC ACID SERUM (28582)Indication: Anemia, unspecified On: Request HAPTOGLOBIN (22698)Indication: Anemia, unspecified On: Request FERRITIN (66184)Indication: Anemia, unspecified On: Request CBC, PLATELETS & AUT DIFF (50388)Indication: Anemia, unspecified On: Request HgA1C , Office (94123)Indication: Abnormal glucose tolerance test On: : Request CBC with manual diff (11246)Indication: Anemia, unspecified On: :49 Request HgA1C , Office (33136)Indication: Abnormal glucose tolerance test On: 13-Qqr-021279:30 Request Comments: controlled URINALYSIS W/O MICRO (96155)Indication: HYPERTENSION, NOS On: :03 Request TSH (07818)Indication: Acquired hypothyroidism On: :03 Request MICROALBUMIN URINE QUANT (49507)Indication: HYPERTENSION, NOS On: 32-Csp-697871:03 Request METABOLIC PANEL, COMPREHENSIVE (90957)Indication: HYPERTENSION, NOS On: :03 Request LIPID PANEL (05708)Indication: HYPERTENSION, NOS On: 85-Hwr-245893:03 Request CBC WITH MANUAL DIFF ([id number])Indication: HYPERTENSION, NOS On: 59-Csj-759300:03 Request Planned Procedures Aerosol Treatment (60352)By: On: 14-Apr-2018 Intent Thelma Sofia Comments: Lungs clear after albuterol aerosol treatment Ultrasound - LiverBy: Melanie DO, On: 21-Nov-2017 Intent Doris Melanie DO, Doris Melanie DO, Doris B 12 Injection, 1000 mcg ([id number])By: On: 21-Nov-2017 Intent Melanie DO, Doris Melanie DO, Comments: Vitamin b12 1000mcg injection lot:[id number]:04/2019L DELT IMpt tolerated well CARYN DUMONT Doris Melanie DO, Doris PHYSICAL THERAPY (73513)By: [place], On: 28-Oct-2017 Intent Thelma Radiology - Hip - LeftBy: [place], On: 28-Oct-2017 Intent Thelma Aerosol Treatment (32354)By: Melanie On: 07-Aug-2017 Intent DO, Doris Melanie DO, Doris Comments: more a/e less nois e Melanie DO, Doris Spirometry (60653)By: Melanie KEBEDE, On: 07-Aug-2017 Intent Doris Melanie DO, Doris Melanie Comments: really poor techniq DO, Doris Radiology - Chest- PA and LatBy: On: 07-Aug-2017 Intent Melanie DO, Doris Melanie DO, Doris Melanie DO, Doris IV Needle placement (09817)By: On: 02-Aug-2017 Intent Melanie DO, Doris Melanie DO, Doris Melanie DO, Doris INFUSION, NORMAL SALINE SOLUTION , On: 02-Aug-2017 Intent 1000 CC (Special Coverage Comments: lot:[id number]:02-26-2019rte:right anticubdose:1000ml given by:david Snow LPN Instructions Apply. See MCM: 2048) ([id number])By: Melanie DO, Doris Melanie DO, Doris Melanie DO, Doris INFUSION, NORMAL SALINE SOLUTION , On: 01-Aug-2017 Intent 1000 CC (Special Coverage Comments: lot:[id number]:02-26-2019rte:IV left anticubdose:1000ml NS given by:david Snow LPN Instructions Apply. See MCM: 2048) (J7030)By: Tobi, Marcia Aerosol Treatment (79614)By: Melanie On: 01-Aug-2017 Intent Doris KEBEDE MelanieDoris driscoll DO Comments: more a/e less junky sounding Melanie DODoris PNEUM VAC ADLT/IMUMNOSPR, SBC/INTRM On: 25-Apr-2017 Intent (58654)By: Doris Navarro DO Comments: 0.5cc [place] sq [place] arm lot [id number] exp 09/05/18 Melanie DO, Doris Melanie DODoris INTENSIVE BEHAVIORAL THERAPY TO On: 25-Apr-2017 Intent REDUCE CARDIOVASCULAR DISEASE RISK, INDIVIDUAL, CATU-ED-UCHJ, ANNUAL, 15 MINUTES (G0446)By: Doris Navarro DO Melanie DO, Doris Melanie DODoris DVYL-EV-MENA BEHAVIORAL COUNSELING On: 25-Apr-2017 Intent FOR OBESITY, 15 MINUTES (G0447)By: Doris Navarro DO Melanie DO, Doris Melanie DO, Doris B 12 Injection, 1000 mcg ([id number])By: On: 25-Apr-2017 Intent Melanie DO, Doris Melanie DO, Comments: 1 ml given lt arm lot [id number] exp 03/15 Doris Jay DO ELECTROCARDIOGRAM, COMPLETE (ECG) On: 25-Apr-2017 Intent ([id number])By: Doris Navarro DO Comments: nsr no acute chg Melanie DO, Doris Melanie DO, Doris B 12 Injection, 1000 mcg (J3420)By: On: 14-Mar-2017 Intent Melanie DO, Doris Melanie DO, Comments: lot [id number] 09/16left [id number] mcgas, [employer] Doris Melanie DO, Doris B 12 Injection, 1000 mcg ([id number])By: On: 31-Dec-2016 Intent Melanie DO Doris Melanie DO, Comments: [id number], [employer] Doris Melanie DO, Doris B 12 Injection, 1000 mcg ([id number])By: On: 20-Sep-2016 Intent Melanie DO, Doris Melanie DO, Comments: lot:[id number]: 4/18Dose: 1,000 mcgSite: R dltdLocation; IMby:, [employer] Doris Melanie DO, Doris Solu- Medrol Injection, 125mg On: 20-Aug-2016 Intent ([id number])By: MelanieJd driscoll DOeen Comments: lot: [id number]: 01/14site/route: LGM/IMamt:2mLVIS signed when applicableChelsea, BUSINESS ACCOUNT SPECIALIST Melanie DO, Doris Melanie DO, Doris Aerosol Treatment (22372)By: Melanie On: 20-Aug-2016 Intent DO, Doris Melanie DO, Doris Comments: albulterol 0.83%relistedned nad more a/e less noise Melanie DO, Doris B 12 Injection, 1000 mcg (J3420)By: On: 20-Aug-2016 Intent Melanie DO, Doris Melanie DO, Comments: lot: [id number]: ite/route: L del/IMamt: 1mLVIS signed when applicableChelsea, BUSINESS ACCOUNT SPECIALIST Doris Melanie DO, Doris Spirometry (63790)By: Melanie DO, On: 16-Aug-2016 Intent Doris Melanie DO, Doris Melanie Comments: ok stable - DO, Doris Aerosol Treatment ([id number])By: Melanie On: 16-Aug-2016 Intent DO, Doris Melanie DO, Doris Comments: albulterol 0.83%more a.e stil some niose in RUL -- junky and easy to cough Melanie DO, Doris Solu- Medrol Injection, 125mg On: 16-Aug-2016 Intent ([id number])By: MelanieJd driscoll DOeen Comments: lot [id number] mgright gm, IMas [employer] Melanie DO, Doris Melanie DO, Doris B 12 Injection, 1000 mcg (J3420)By: On: 20-Jul-2016 Intent Melanie DO, Doris Melanie DO, Comments: B12lot:[id number]:ite:rt deltroute:IMdose:1mlD.HAY Valentin Doris Melanie DO, Doris Solu- Medrol Injection, 125mg On: 20-Jul-2016 Intent (J2930)By: Doris Navarro DO Comments: lot: [id number]: 01/14site/route: RGM/IMamt: 2mLVIS signed when applicableChelsea, BUSINESS ACCOUNT SPECIALIST Melanie DO, Doris Melanie DO, Doris Aerosol Treatment ([id number])By: Melanie On: 20-Jul-2016 Intent DO, Doris Melanie DO, Doris Comments: less wheeze good a/e- less irritability with breathing Doris Navarro DO Radiology - Chest- PA and LatBy: On: 20-Jul-2016 Intent Melanie DO, Doris Melaine DO, Doris Melanie DO, Doris Spirometry ([id number])By: Melanie KEBEDE, On: 20-Jul-2016 Intent Doris Melanie DO, Doris Melanie Comments: mild restriction =- poor curve and technique DO, Doris ELECTROCARDIOGRAM, COMPLETE (ECG) On: 20-Jul-2016 Intent ([id number])By: Doris Navarro DO Comments: sinus braden no acute chg Melanie DO, Doris Melanie DO, Doris B 12 Injection, 1000 mcg (J3420)By: On: 29-May-2016 Intent Melanie DO, Doris Melanie DO, Comments: Lot:[id number]:11/13Dose:1mlRoute:IMSite:r armGiven By:SAADIA signed Doris Melanie DO, Doris Flu Vaccine (Quadrivalent) [id number]: On: 29-May-2016 Intent Melanie DO, Doris Melanie DO, Comments: Lot:[id number]:01/25/17Dose:0.5mLRoute:IMSite:L DltdGiven By:SAADIA signed Doris Melanie DO, Doris B 12 Injection, 1000 mcg (J3420)By: On: 21-May-2016 Intent Melanie DO, Doris Melanie DO, Doris Melanie DO, Doris B 12 Injection, 1000 mcg (J3420)By: On: 18-May-2016 Intent Melanie DO, Doris Melanie DO, Comments: B12lot:[id number]:ite:rt deltroute:IMdose:1mlD.HAY Valentin Doris Melanie DO, Doris B 12 Injection, 1000 mcg (J3420)By: On: 11-May-2016 Intent Melanie DO, Doris Melanie DO, Comments: lot [id number] [facility] dltdas, [employer] Doris Melanie DO, Doris B 12 Injection, [...] ite/route: R del/IMamt: 1mLVIS signed when applicableChelsea, BUSINESS ACCOUNT SPECIALIST Doris Melanie DO, Doris B 12 Injection, 1000 mcg (J3420)By: On: 13-Apr-2016 Intent Mckinley Valentin Comments: B12lot:[id number]:ite:lt deltroute:IMdose:1mlD.HAY Valentin INTENSIVE BEHAVIORAL THERAPY TO On: 09-Apr-2016 Intent REDUCE CARDIOVASCULAR DISEASE RISK, INDIVIDUAL, SKOE-QC-ZNOR, ANNUAL, 15 MINUTES (G0446)By: Melanie DO, Doris Melanie DO, Doris Melanie DO, Doris YSGX-KS-[id number] BEHAVIORAL COUNSELING On: 09-Apr-2016 Intent FOR OBESITY, 15 MINUTES (G0447)By: Melanie DO, Doris Melanie DO, Doris Melanie DO, Doris MAMMOGRAM, SCREENING, BOTH BREAST On: 09-Apr-2016 Intent ([id number])By: Melanie DO, Doris Melanie DO, Doris Melanie DO, Doris DEXA SCAN AXIAL SKELETON ([id number])By: On: 09-Apr-2016 Intent Melanie DO, Doris Melanie [...] Comments: Lot:[id number]:04/14Dose:1mlRoute:IMSite:l armGiven By:SAADIA signed Aerosol Treatment ([id number])By: Fast On: 03-Aug-2015 Intent DO, Maggie A B 12 Injection, 1000 mcg (J3420)By: On: 17-May-2015 Intent Fast DO Maggie A Comments: Lot:[id number]:11/12Dose:1mlRoute:IMSite:l armGiven By:SAADIA signed Flu Vaccine (Quadrivalent) [id number]: On: 17-May-2015 Intent Fast DO Maggie A Comments: lot [id number]: 01/26/2016site/route L sol, IMamt 0.5mlVIS and ABN signed when applicableChelsea, CMAFM4 ADMINISTRATION OF INFLUENZA VIRUS On: 17-May-2015 Intent VACCINE (G0008)By: Maggie Tracey DO A B 12 Injection, 1000 mcg (J3420)By: On: 15-Feb-2015 Intent Kanika Georges Comments: Lot:[id number]:11.16Route:IMSite:R deltoidDose: 1 mLgiven by: Kanika Georges CMA DANIEL (Ankle Brachial Index) On: 08-Feb-2015 Intent ([id number])By: Maggie Tracey DO Radiology - Lumbar SpineBy: Alexy KEBEDE, On: 08-Feb-2015 Intent Maggie Armstrong Ultrasound - ThyroidBy: Alexy KEBEDE, On: 09-Nov-2014 Intent Maggie A B 12 Injection, 1000 mcg (J3420)By: On: 09-Nov-2014 Intent Camelia Tracey DOa A Comments: lot [id number] mcgleft dltdIMas, [employer]SEMBLER [employer] Radiology - Chest- PA and LatBy: On: 13-Sep-2014 Intent Alexy KEBEDE Maggie A Comments: call stat Pulse Oximetry ([id number])By: Alexy KEBEDE, On: 13-Sep-2014 Intent Maggie A Comments: 97% Inhaler Demonstration ([id number])By: On: 07-Sep-2014 Intent Kimberley Loyd CNP Radiology - Chest- PA and LatBy: On: 14-Jul-2014 Intent Alexy KEBEDE Maggie A Comments: call rsults Spirometry ([id number])By: Alexy KEBEDE, On: 14-Jul-2014 Intent Maggie A Comments: good effort and curve mild rest /obst Prevnar 13 ([id number])By: Alexy KEBEDE, On: 30-Jun-2014 Intent Maggie A Comments: lot [id number] 09/2015location L armroute imgiven by - msmithVIS and/or ABN signed MAMMOGRAM, SCREENING, BOTH BREAST On: 14-Apr-2014 Intent ([id number])By: Maggie Tracey DO A B 12 Injection, 1000 mcg (J3420)By: On: 14-Apr-2014 Intent Camelia Tracey DOa A Comments: Lot #[id number] date:mount given:1mlRoute: IMSite given: left deltoidGiven by: HAY Zavala Cartoid DopplerBy: Alexy DO Maggie A On: 14-Apr-2014 Intent Eprescribed prescriptions (G8553)By: On: 07-Oct-2013 Intent Fast DO, Maggie A DXA, BONE DENSITY, AXIAL SKELETON On: 20-Jul-2013 Intent ([id number])By: Alexy KEBEDE Maggie A Comments: aug Pelvic and Breast, Medicare On: 20-Jul-2013 Intent (G0101)By: Alexy DOCameliaa A Cartoid DopplerBy: Fast DO, Maggie A On: 07-Jul-2013 Intent Eprescribed prescriptions (G8553)By: On: 07-Jul-2013 Intent Raiza Ortiz FLU VAC, SPLIT, >3 YEARS, INTRAMUSC On: 04-May-2013 Intent ([id number])By: Maritza Cantor Comments: lot [id number] 2014site/route L sol, IMamt 0.5mlVIS and ABN signed when applicableChelsea, [facility] ADMINISTRATION OF INFLUENZA VIRUS On: 04-May-2013 Intent VACCINE (G0008)By: Maritza Cantor Radiology - Hip - LeftBy: Alexy KEBEDE, On: 07-Apr-2013 Intent Maggie Armstrong Eprescribed prescriptions (G8553)By: On: 07-Apr-2013 Intent Raiza Ortiz Eprescribed prescriptions (G8553)By: On: 05-Jan-2013 Intent Raiza Ortiz Spirometry ([id number])By: Alexy KEBEDE, On: 01-Dec-2012 Intent Maggie A Comments: good effort and curve normal Radiology - Chest- PA and LatBy: On: 01-Dec-2012 Intent Alexy KEBEDE Maggie A Comments: stat call wet read Eprescribed prescriptions (G8553)By: On: 01-Dec-2012 Intent Raiza Ortiz Pulse Oximetry ([id number])By: Angel, On: 01-Dec-2012 Intent Raiza Comments: 98% Eprescribed prescriptions (G8553)By: On: 27-Nov-2012 Intent Melanie DO, Doris Melanie DO, Doris Melanie DO, Doris MAMMOGRAM, SCREENING, BOTH BREASTS On: 29-Sep-2012 Intent ([id number])By: Camelia Tracey DOa A EKG ([id number])By: Raiza Ortiz On: 29-Sep-2012 Intent Comments: ekg- 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 axis and no acute st t wave changes Eprescribed prescriptions (G8553)By: On: 29-Sep-2012 Intent Raiza Ortiz Eprescribed prescriptions (G8553)By: On: 03-Sep-2012 Intent Raiza Ortiz Eprescribed prescriptions (G8553)By: On: 30-Jul-2012 Intent Raiza Ortiz B 12 Injection, 1000 mcg (J3420)By: On: 23-Jun-2012 Intent Maggie Tracey DO A Comments: Lot:[id number]:Dose:1mlRoute:IMSite:L armGiven By:SAADIA signed Eprescribed prescriptions (G8553)By: On: 23-Jun-2012 Intent Raiza Ortiz B 12 Injection, 1000 mcg (J3420)By: On: 25-Mar-2012 Intent Maricruz Rivera LPN Comments: Lot #[id number]-06/10Site-right deltoidDose-1 mlgiven by: Dani Rivera LPN Eprescribed prescriptions (G8553)By: On: 25-Mar-2012 Intent Maggie Tracey DO FLU VAC, SPLIT, >3 YEARS, INTRAMUSC On: 25-Mar-2012 Intent (07050)By: Patsy Leslie LPN Comments: Lot/Exp: [id number], 12/2011Given in L Dltd, IMPrefilled SyringeBy CARYN Garner ADMINISTRATION OF INFLUENZA VIRUS On: 25-Mar-2012 Intent VACCINE (G0008)By: Patsy Leslie LPN Echo CompleteBy: Alexy KEBEDE Maggie A On: 07-Dec-2011 Intent B 12 Injection, 1000 mcg (J3420)By: On: 07-Dec-[address] - OtherBy: Alexy DO Maggie A On: 03-Oct-2011 Intent Comments: get cta of carotid arteries TDAP VACCINE >7 IM ([id number])By: On: 03-Oct-2011 Intent Raiza Ortiz B 12 Injection, 1000 mcg (J3420)By: On: 07-Sep-2011 Intent Raiza Ortiz Comments: Lot #[id number]-/Site-left deltoidDose-1 mlgiven by: Dani Rivera LPN Cartoid DopplerBy: Maggie Tracey DO On: 07-Sep-2011 Intent Comments: in september DXA, BONE DENSITY, AXIAL SKELETON On: 07-Sep-2011 Intent ([id number])By: Maggie Tracey DO MAMMOGRAM, SCREENING, BOTH BREASTS On: 07-Sep-2011 Intent ([id number])By: Maggie Tracey DO Aerosol Treatment ([id number])By: Ciesa On: 08-Aug-2011 Intent 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, Kimberley Poe EKG (49869)By: Raiza Ortiz On: 06-Jun-2011 Intent Comments: ekg showed normal sinus rhythym, left axis, no acute st/t wave changes DXA, BONE DENSITY, AXIAL SKELETON On: 06-Jun-2011 Intent ([id number])By: Maggie Tracey DO FLU VAC, SPLIT, >3 YEARS, INTRAMUSC On: 11-May-2011 Intent (68957)By: Maricruz Rivera LPN Comments: Lot #[id number]-49/20/Site-left deltoidgiven by: Dani Rivera LPN B 12 [...] PNEUM VAC ADLT/IMUMNOSPR, SBC/INTRM On: 03-Jul-2010 Intent (77663)By: Maggie Tracey DO Comments: Lot #[id number]-/10/07Site-left deltoidDose- 0.5mlgiven by:[facility] ADMINISTRATION OF PNEUMOCOCCAL On: 03-Jul-2010 Intent VACCINE (G0009)By: Maggie Tracey DO MAMMOGRAM, SCREENING, BOTH BREASTS On: 03-Jul-2010 Intent ([id number])By: Maggie Tracey DO B 12 Injection, 1000 mcg (J3420)By: On: 20-Jun-2010 Intent Maggie Tracey DO Comments: Lot #[id number]-12/07Site-left deltoidDose-1 mlgiven by:[facility] B 12 Injection, 1000 mcg (J3420)By: On: 10-May-2010 Intent Apoorva Calle Comments: Lot:[id number]:12/07Dose:1000mcg/1mlRoute:IMSite:right deltoid Given by: HAY Birch FLU VAC, SPLIT, >3 YEARS, INTRAMUSC On: 10-May-2010 Intent ([id number])By: Apoorva Calle Comments: Lot:[id number] 4PExp:4/2011Dose:0.5mlRoute:IMSite:Left Deltoid Given by: HAY Birch ADMINISTRATION OF INFLUENZA VIRUS On: 10-May-2010 Intent VACCINE (G0008)By: Apoorva Calle Doppler Ultrasound OtherBy: Alexy KEBEDE, On: 12-Apr-2010 Intent Maggie Armstrong Comments: both legs stat- left leg swelling- call wet read Spirometry ([id number])By: Alexy KEBEDE, On: 12-Apr-2010 Intent Maggie A Comments: good effort and curve normal B 12 Injection, 1000 mcg (J3420)By: On: 05-Apr-2010 Intent Maggie Tracey DO Ultrasound - GallbladderBy: Alexy KEBEDE, On: 01-Feb-2010 Intent Maggie A IV Needle placement (15252)By: On: 10-Jan-2010 Intent Ana Guzman Comments: IV 22 gauge inserted in right antecubital on first attempt and 0.9 NSS running without difficulty-AW INFUSION, NORMAL SALINE SOLUTION , On: 10-Jan-2010 Intent 1000 CC (Special Coverage Instructions Apply. See MCM: 2049) (J7030)By: Kimberley Loyd CNP THER/PROPH/DIAG INJ, SC/IM On: 10-Jan-2010 Intent ([id number])By: Kimberley Loyd CNP Radiology - Knee - Right - Weight On: 03-Jan-2010 Intent BearingBy: Maggie Tracey DO EKG (51520)By: Raiza Ortiz On: 03-Jan-2010 Intent Comments: ekg showed normal sinus rhythym, left axis, no acute st/t wave changes Aerosol Treatment ([id number])By: Evert On: 19-Oct-2009 Intent Kimberley LOVE Cartoid DopplerBy: Maggie Tracey DO On: 14-Jun-[address] - Brain/HeadBy: Maggie Tracey DO On: 06-Jun-2009 Intent MAMMOGRAM, SCREENING, BOTH BREASTS On: 06-Jun-2009 Intent ([id number])By: Maggie Tracey DO DXA, BONE DENSITY, AXIAL SKELETON On: 06-Jun-2009 Intent ([id number])By: Maggie Tracey DO FLU VAC, SPLIT, >3 YEARS, INTRAMUSC On: 12-May-2009 Intent (03030)By: Maricruz Rivera LPN Comments: Lot #[id number]-left deltoidgiven by:[facility] ADMINISTRATION OF INFLUENZA VIRUS On: 12-May-2009 Intent VACCINE (G0008)By: Maricruz Rivera LPN Radiology - Hand - RightBy: Alexy KEBEDE, On: 26-Jan-2009 Intent Maggie Armstrong Radiology - Wrist - RightBy: Fast On: 26-Jan-2009 Intent DO Maggie A Comments: call wet read Pulse Oximetry (84333)By: Alexy KEBEDE, On: 27-Dec-2008 Intent Maggie A Comments: 98 Inhaler Demo (78655)By: Alexy KEBEDE, On: 27-Dec-2008 Intent Maggie A Spirometry (07918)By: Alexy KEBEDE, On: 27-Dec-2008 Intent Maggie A Comments: good effort and curve has small airways diminished Radiology - Chest- PA and LatBy: On: 27-Dec-2008 Intent Alexy KEBEDE Maggie A Echo CompleteBy: Alexy KEBEDE Maggie A On: 08-Nov-2008 Intent Comments: elevated bp - increase patricia EKG (70939)By: Camelia Tracey DOa A On: 08-Nov-2008 Intent Comments: ekg showed normal sinus rhythym, leftl axis, no acute st/t wave changes rsr unchanged Bio Z (75911)By: Maggie Tracey DO A On: 08-Nov-2008 Intent Inhaler Demo (87739)By: Melanie KEBEDE, On: 02-Sep-2008 Intent Doris Jay DO, DO, Kathleen Aerosol Treatment (03623)By: Melanie On: 02-Sep-2008 Intent Doris KEBEDE DO, Kathleen Comments: less echoey -- better less cough Doris Navarro DO EKG (88242)By: Doris Navarro DO On: 16-Dec-2007 Intent Doris [...] LSN TRNK/ARM/LEG On: 09-Jul-2007 Intent 0.6-1.0 CM ([id number])By: Kimberley Loyd CNP BIOPSY OF SKIN LESION, SINGLE On: 09-Jul-2007 Intent ([id number])By: Kimberley Loyd CNP SHAVE SKIN LESION, TRUNK/ARM/LEG On: 02-Jul-2007 Intent (87404)By: Kimberley Loyd CNP BIOPSY OF SKIN LESION, SINGLE On: 02-Jul-2007 Intent (76255)By: Kimberley Loyd CNP B 12 Injection, 1000 mcg (J3420)By: On: 02-Jul-2007 Intent Jesus RUBIN, Lashonda FLU VAC, SPLIT, >3 YEARS, INTRAMUSC On: 04-Jun-2007 Intent (26099)By: Jing Cabello RN Comments: Lot #: [id number] date: 01/03Amount given: 0.5 MLRoute: IMSite given: Left deltoidGiven by: Nathaniel Beal LPN IMMUNIZ ADMNIN, 1 VAC, SNGL/COMBO On: 04-Jun-2007 Intent (86225)By: Jing Cabello RN B 12 Injection, 1000 [...] LITER Instructions Apply. See MCM: 2049) (J7050)By: Melanei DO, Doris Melanie DO, Doris Melanie DO, Doris IV Infusion (56243)By: Melanie KEBEDE, On: 18-Oct-2006 Intent Doris Melanie DO, Doris Melanie DO, Doris EKG (62509)By: Doris Navarro DO On: 10-Oct-2006 Intent Melanie [...] MCG/ML Injection Solution Ordered: 25-Mar-2012 Pending [place] ASSEMBLER CORN[employer] PIPESMaricruz Armijo Vitamin B-12 1000 MCG/ML Injection Solution [...] The patient does have durable power of civil rights attorney and living will. Other providers contributing [...] 13 steps at home. I was at [facility] for 3 days in ICU I broke [...] The patient does have durable power of civil rights attorney and living will. The patient has [...] and she off pravastatin and went to [place] and now on 5 mg of crestor- and tolerated she got leg pain and weakness on pravachol- - she got good [facility] [employer] on stroke and vascular in [place]- --bp is good and cough gone and [...] The patient does have durable power of civil rights attorney and living will. The damián ent [...] since going to the urgent care at [facility]- on atb yet but will finish [...] bp is great- went to [facility] for vascular check and said ok- [...] stroke sx mood controlled has followup in [facility] for vascular issues soon- no [...] The patient does have durable power of civil rights attorney and living will. The patient has [...] not home- no gerd - went to [place] for artery checks and doing ok there- [...] care [facility]: [facility] .-she is [...] laboratory test results: [facility] Saw Dr Shruthi Quinones- ??head of [...] ER visit: note: (stroke she was at [facility] x 5days released on saturday05/22/12 to 05/27/12). The patient feels well with minor complaints, has decreased energy End: 29-May-2012 14:12 level and is sleeping well. Patient has been compliant with instructions. Current medication use: compliant with dosing regimen. Patient sleeps 7 hours per night. Nutrition: balanced diet and supplement al vitamins. Note for Follow up hospital: [facility] Diagnosis: CVA (434.91), Benign essential hypertension (401.1), Diabetes type II,controlled no comp (250.00), Hypothyroidism (244.9), Carotid stenosis (433.10) [facility] Office Visit On: 22-May-2012 10:33 Encounter Reason: Follow up hospital - Reason for ER visit: note: (TIA. ??Patient was seen by [facility] ER x 3 times last week and then sent to [facility] for psych eval.). 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
--- OUTSIDE RECORDS SUMMARY | 2018-08-20 05:04 | XMS RPT_ITS ---
:1940 Author Organization OHIP Support Name Relationship Address Phone MELANIE FRIEDMAN Unrelated Friend Unavailable + [place] [address] FABYFRANTZ THORNE [address] + [place] [address] R Unknown Unavailable Unavailable BONDALTON, MELANIE Unrelated Friend Unavailable + [place] [address] ANTHONY, FRANTZ [address] + [place] [address] R Unknown Unavailable Unavailable BONDALTON, MELANIE Unrelated Friend Unavailable + [place] [address] FRANTZ CRUZ [address] + [place] [address] R Unknown Unavailable Unavailable BONDALTON, MELANIE Unrelated Friend Unavailable + [place] [address] ANTHONY, FRANTZ [address] + [place] [address] R Unknown Unavailable Unavailable BONDALTON, MELANIE Unrelated Friend Unavailable + [place] [address] FRANTZ CRUZ [address] + [place] [address] R Unknown Unavailable Unavailable BONDALTON, MELANIE Unrelated Friend Unavailable + [place] [address] ANTHONY, FRANTZ [address] + [place] [address] R Unknown Unavailable Unavailable BONITZ, EMLANIE Unrelated Friend Unavailable + [place] [address] ANTHONY, FRANTZ [address] + [place] [address] R Unknown Unavailable Unavailable BONDALTON, MELANIE Unrelated Friend Unavailable + [place] [address] FRANTZ CRUZ [address] + [place] [address] R Unknown Unavailable Unavailable BONITZ, MELANIE Unrelated Friend Unavailable + FRANTZ CRUZ [address] + [place] [address] R Unknown Unavailable Unavailable BONITZ, MELANIE Unrelated Friend Unavailable + FRANTZ CRUZ [address] + [place] [address] R Unknown Unavailable Unavailable BONITZ, MELANEI Unrelated Friend Unavailable + FRANTZ CRUZ [address] + [place] [address] R Unknown Unavailable Unavailable BONITZ, MELANIE Unrelated Friend Unavailable + FRANTZ CRUZ [address] + [place] [address] R Unknown Unavailable Unavailable BONDALTON, MELANIE Unrelated Friend . + ., . . FRANTZ CRUZ [address] + [place] [address] R Unknown Unavailable Unavailable BONDALTON, MELANIE Unrelated Friend . + ., . . FRANTZ CRUZ [address] + [place] [address] R Unknown Unavailable Unavailable Care Team Providers Name Role Phone Melanie DOTaliDoris Attending Unavailable Fast DO, Maggie A Referring Unavailable Melanie DO, Doris Consulting Unavailable DOCTOR, OUT OF TOWN Attending Unavailable Melanie, Doris Primary Care Unavailable Melanie, Doris Attending Unavailable Melanie, Doris Primary Care Unavailable Melanie, Doris Primary Care Unavailable Zee Denise Attending Unavailable Melanie, Doris Primary Care Unavailable Thelma Sofia CABLE FERRYBOAT OPERATOR-C Attending Unavailable Thelma Sofia CABLE FERRYBOAT OPERATOR-C Referring Unavailable Melanie, Doris Attending Unavailable Melanie, Doris Referring Unavailable Melanie, Doris Primary Care Unavailable Melanie, Doris Attending Unavailable Melanie, Doris Primary Care Unavailable Melanie, Doris Primary Care Unavailable Joseelfayleen, Ghasem Admitting Unavailable Rod Melendrez Consulting Unavailable Lance Messina Attending Unavailable Ashelfah, Ghasem Attending Unavailable Melanie, Doris Primary Care Unavailable Cameron, Ghasem Admitting Unavailable Lance Messina Attending Unavailable Melanie, Doris Primary Care Unavailable Rod Melendrez Consulting Unavailable Tereletsky, Lance Consulting Unavailable Melanie, Doris Attending Unavailable Melanie, Doris Referring Unavailable Melanie, Doris Primary Care Unavailable Lary, [place] Attending Unavailable Melanie, Doris Primary Care Unavailable Jwayyed, Sharhabeel Attending Unavailable Melanie, Doris Attending Unavailable Melanie, Drois Referring Unavailable Melanie, Doris Primary Care Unavailable Melanie, Doris Attending Unavailable Melanie, Doris Referring Unavailable Melanie, Doirs Primary Care Unavailable Purpose Purpose PROBLEMS PROBLEMS DATE TYPE CONDITION / CODE ATTENDING STATUS SOURCE 05/14/2018 Unknown R52 - Pain, Jwayyed, Active [place] unspecified / [place] [facility] R52(ICD-10) Hospital Repository 02/27/2018 Unknown R74.8 - Abnormal Doris Navarro Active [place] levels of other [facility] serum enzymes / Hospital R74.8(ICD-10) Repository 05/08/2018 Unknown M25.552 - Pain in Doris Navarro Active [place] left hip / [facility] M25.552(ICD-10) Hospital Repository 08/07/2017 Unknown R09.89 - Other Doris Navarro Active [place] specified Community symptoms and Hospital signs involving Repository the circulatory and respiratory systems / R09.89(ICD-10) PROCEDURES PROCEDURES No Procedure Records FoundVITAL SIGNS VITAL SIGNS No Vital Signs Records FoundRESULTS RESULTS L/S SPINE MIN 4 Observed: 06/24/2018 Status: F Source: [place] VIEWS 2:13 PM [facility] REPOSITORY [facility] Imaging Services [address] [place] [address] L/S Spine Min 4 Views MR#: [id number] Acct: [id number] Name: MARICRUZ GRIGSBY Rep #: [id number] : 1940 F 78 From: Mack Soni MD PCP: Doris Navarro DO Status: REG CLI Study: L/S Spine Min 4 Views Date of Exam: 06/24/18 Exam# [id number] Ordering Dr: Doris Navarro DO STUDY: X-RAY - LUMBAR SPINE REASON FOR EXAM: Female, 78 years old. Back pain. TECHNIQUE: 5 view(s) of the lumbar spine were obtained. COMPARISON: 5 views of the lumbar spine February 08, 2015. FINDINGS: Normal lumbar lordosis. There is a 10 degree dextroscoliosis of the lumbar spine centered at L3-4. There is a normal alignment of the vertebrae. There is stable mild multilevel endplate spondylosis of the lumbar vertebrae. Stable moderately severe intervertebral disc height narrowing at L4-5. Mild to moderate narrowing at L3-4 and slight narrowing at L2-3 are mildly worsened from prior study. There is no demonstrated fracture. There is stable degenerative arthropathies of the lower lumbar facet joints. The soft tissue structures are unremarkable. RAD/L/S Spine Min 4 Views IMPRESSION: Degenerative changes of the spine, as detailed above, with slight increased disc height narrowing at L2-3 and L3-4 as well as mild increased dextroscoliosis since 2014. Electronically Signed: Leopoldo Soni MD at 14:13 EST , Service support , CC: Doris Navarro DO Flumer: Signed EMERGENCY DEPARTMENT Observed: 05/14/2018 Status: F Source: [place] SUMMARY 3:[address] [facility] REPOSITORY [facility] Medical Records Department [address] [place] [address] Emergency Department Summary 05/14/18 0908 MR#: [id number] Acct: [id number] Name: MARICRUZ GRIGSBY Rep #: [id number] : 1940 78 From: Zee Denise MD PCP: Doris Navarro DO Status: DEP ER - ER Visit Summary Date of Service: 05/14/18 Chief Complaint: [] Tripped at home fell left shoulder left upper chest pain History of Present Illness: The patient is a 78 F [] history of hypertension diabetes stable she ended up tripping 3 AM on an object she injured her left shoulder and left upper chest she had no headache or head trauma no neck pain no other chest pain no paresthesias she came in because of persistent pain she has no other complaints and her general health condition has been very stable Physical Examination: [] She indicates her chief complaint is left shoulder pain she is holding the shoulder close to her body her vital signs are within normal range she is in no distress HEENT exam is unremarkable the neck is nontender the lungs are clear the heart tones are normal abdomen soft nontender upper lower extremities unremarkable except the left shoulder. 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 It may contain incorrect words, [...] your Primary Care Provider. Call [facility] ([phone]) or report to the closest Emergency Room. Call 911 if necessary. 05/14/18 1530 <Electronically signed by Zee Denise MD> Date Zee Denise MD Cosigner Signature (If Indicated): Date CC: Doris Navarro DO DISCHARGE INSTRUCTION Observed: 05/14/2018 Status: F Source: [place] 11:[address] [facility] REPOSITORY [facility] Medical Records Department [address] [place] [address] Discharge Instruction 05/14/18 1133 MR#: [id number] Acct: [id number] Name: CLIFFORD CRUZMARICRUZ L Rep #: [id number] : 1940 78 From: Zee Denise MD PCP: Doris Navarro DO Status: REG ER ED Disposition - Plan for ED Patient: Chief Complaint: Fall Instructions: ED Mechanical Fall, ED Fx Rib, ED Sprain Shoulder, ED Sling Prescriptions: Hydrocodone Bitart/Apap 5-325 [[place] 5MG-325MG] 1 tab PO Q6H PRN PRN 3 Days #10 tab PRN Reason: Pain Referrals: Doris Navarro DO [Primary Care Provider] - What to do if you have Problems For any increased pain, shortness of breath, bleeding, nausea or vomiting, chest pain, or any unexpected problems, contact your Primary Care Provider. Call [facility] ([phone]) or report to the closest Emergency Room. Call 911 if necessary. 05/14/18 1134 <Electronically signed by Zee Denise MD> Date Zee Denise MD Cosigner Signature (If Indicated): Date CC: Doris Navarro DO CHEST PA AND LATERAL Observed: 05/14/2018 Status: F Source: [place] 8:[address] [facility] REPOSITORY [facility] Imaging Services [address] [place] [address] Chest PA and Lateral MR#: [id number] Acct: [id number] Name: MARICRUZ GRIGSBY Rep #: [id number] : 1940 F 78 From: Teo Garrido MD PCP: Doris Navarro DO Status: REG ER Study: Chest PA and Lateral Date of Exam: 05/14/18 Exam# [id number] Ordering Dr: Zee Denise MD STUDY: X-RAY CHEST REASON FOR EXAM: Female, 78 years old. Left-sided rib pain following a fall. TECHNIQUE: PA and lateral views of the chest. COMPARISON: Comparison is made with prior study dated February 06, 2018. FINDINGS: Stable elevation of the right hemidiaphragm. The lungs are clear and expanded. There is no demonstrated pleural abnormality. There is mild cardiac enlargement. Normal mediastinum and pete. Normal visualized pulmonary arteries. There is atherosclerotic calcification of the aortic arch with tortuosity. There is demineralization of the osseous structures. Levoscoliosis. Healed right rib fractures. There is no demonstrated abnormality of the visualized soft tissue structures of the upper abdomen. RAD/Chest PA and Lateral IMPRESSION: Healed right rib fractures. No acute abnormality is seen. Electronically Signed: Teo Garrido MD at 10:11 EDT Tel [phone], Service support , CC: MD Sonam Denise; Doris Navarro DO Flumer: Signed ELBOW MIN 3 VIEWS Observed: 05/14/2018 Status: F Source: [place] 8:58 AM [facility] REPOSITORY [facility] Imaging Services [address] [place] [address] Elbow min 3 Views MR#: [id number] Acct: [id number] Name: MARICRUZ GRIGSBY Rep #: [id number] : 1940 F 78 From: Teo Garrido MD PCP: Doris Navarro DO Status: REG ER Study: Elbow min 3 Views Date of Exam: 05/14/18 Exam# [id number] Ordering Dr: Zee Denise MD STUDY: X-RAY - LEFT ELBOW REASON FOR EXAM: Female, 78 years old. Pain following a fall. TECHNIQUE: 3 view(s) of the elbow. COMPARISON: None. FINDINGS: Normal visualized humerus, radius and ulna. Normal radiocapitellar and ulnotrochlear articulations. The soft tissue structures are unremarkable. RAD/Elbow min 3 Views IMPRESSION: Normal x-ray examination of the elbow. Electronically Signed: Teo Garrido MD at 10:12 EDT Tel [phone], Service support , CC: MD Sonam Denise; Doris Navarro DO Flumer: Signed SHOULDER MIN 2 VIEWS Observed: 05/14/2018 Status: F Source: [place] 8:[address] [facility] REPOSITORY [facility] Imaging Services [address] [place] [address] Shoulder min 2 Views MR#: [id number] Acct: [id number] Name: MARICRUZ GRIGSBY Rep #: [id number] : 1940 F 78 From: Teo Garrido MD PCP: Doris Navarro DO Status: REG ER Study: Shoulder min 2 Views Date of Exam: 05/14/18 Exam# [id number] Ordering Dr: Zee Denise MD STUDY: X-RAY - LEFT SHOULDER REASON FOR EXAM: Female, 78 years old. Pain following a fall. TECHNIQUE: 5 view(s) of the shoulder. COMPARISON: None. FINDINGS: There is mild degenerative arthrosis of the glenohumeral articulation. There is degenerative arthrosis of the acromioclavicular joint without inferior osseous spur formation. Normal acromion. Normal humeral head and visualized proximal humerus. The soft tissue structures are unremarkable. Nondisplaced left rib fracture along the anterolateral aspect. RAD/Shoulder min 2 Views IMPRESSION: Degenerative changes. Nondisplaced fracture of the left fifth rib anterolaterally. Electronically Signed: Teo Garrido MD at 11:02 EDT Tel [phone], Service support , CC: MD Sonam Denise; Doris Navarro DO Flumer: Signed 12 LEAD ELECTROCARDIOGRAM Observed: 2018 Status: F Source: [place] 2:[address] [facility] REPOSITORY [facility] Cardiovascular Services [address] [place] [address] 12 Lead EKG 02/06/18 1825 MR#: [id number] Acct: [id number] Name: MARICRUZ GRIGSBY Rep #: [id number] : 1940 77 From: Jason Barth MD Attending Dr: Lance Messina DO Status: DIS DEEPAK Ordering Dr: Jered Marte MD Date: 02/06/18 Location: [facility] Sex: F C Admitted: 02/06/18 Test Reason : HEADACHE Blood Pressure : / mmHG Vent. Rate : 064 BPM Atrial Rate : 064 BPM P-R Int : 204 ms QRS Dur : 088 ms QT Int : 410 ms P-R-T Axes : 040 -23 071 degrees QTc Int : 422 ms Normal sinus rhythm Normal ECG Confirmed by JASON BARTH MD ([id number]), dictionary editor STACY CARTER ([id number]) on 2018 2:12:44 PM Referred By: RON Confirmed By:JASON BARTH MD 02/11/18 1412 Date Jason Barth MD CC: Doris Navarro DO; Lance Messina DO; Jered Marte Signed LIVER PROFILE Collected: 02/10/2018 Status: F Source: [place] 8:[address] [facility] REPOSITORY Order Comment: Comments: ANTI-LIVER/KIDNEY MICRO AB [id number] SER/RF TYPE CODE TESTS RESULT OUT OF RANGE REFERENCE UNITS LAB L501.1500 6.4-8.2 g/dL Normal T PROT 7.2 LAB L501.1800 3.2-5.0 g/dL Normal ALB 3.7 LAB L501.1950 2.2-4.2 g/dL Normal GLOB 3.5 LAB L501.4100 15-37 U/L High AST 43 LAB L501.4305 45-117 U/L Normal ALK P 93 LAB L501.4405 13-56 U/L Normal ALT 48 LAB L501.4600 0.20-1.00 mg/dL Normal T BILI 0.60 LAB L501.4700 0.00-0.30 mg/dL Normal D BILI 0.17 Performed By: #### L500.3400, L501.5100, L501.63342, L501.9520, L503.6550, L506.0400 #### [place] [facility] [address] [place], [address] GGTP Collected: 02/10/2018 Status: F Source: [place] 8:[address] [facility] REPOSITORY Order Comment: Comments: ANTI-LIVER/KIDNEY MICRO AB [id number] SER/RF TYPE CODE TESTS RESULT OUT OF RANGE REFERENCE UNITS LAB L501.5100 5-55 U/L High GGTP 64 Performed By: #### L500.3400, L501.5100, L501.36103, L501.9520, L503.6550, L506.0400 #### [facility] [address] [place], [address] FREE T3 Collected: 02/10/2018 Status: F Source: [place] 8:[address] [facility] REPOSITORY Order Comment: Comments: ANTI-LIVER/KIDNEY MICRO AB [id number] SER/RF TYPE CODE TESTS RESULT OUT OF RANGE REFERENCE UNITS LAB L501.58611 2.18-3.98 pg/mL Low FREE T3 1.6 Performed By: #### L500.3400, L501.5100, L501.38851, L501.9520, L503.6550, L506.0400 #### [facility] [address] [place], [address] THYROID STIM HORMONE Collected: 02/10/2018 Status: F Source: [place] (TSH) 8:[address] [facility] REPOSITORY Order Comment: Comments: ANTI-LIVER/KIDNEY MICRO AB [id number] SER/RF TYPE CODE TESTS RESULT OUT OF RANGE REFERENCE UNITS LAB L501.9520 0.358-3.74 uIU/mL High TSH 16.40 Performed By: #### L500.3400, L501.5100, L501.13231, L501.9520, L503.6550, L506.0400 #### [facility] [address] [place], [address] FERRITIN Collected: 02/10/2018 Status: F Source: [place] 8:[address] [facility] REPOSITORY Order Comment: Comments: ANTI-LIVER/KIDNEY MICRO AB [id number] SER/RF TYPE CODE TESTS RESULT OUT OF RANGE REFERENCE UNITS LAB L503.6550 8-252 ng/mL Normal FERRITIN 236 Performed By: #### L500.3400, L501.5100, L501.09714, L501.9520, L503.6550, L506.0400 #### [facility] [address] [facility] [place], [place], [address] T4 FREE DIRECT Collected: 02/10/2018 Status: F Source: [place] 8:[address] [facility] REPOSITORY Order Comment: Comments: ANTI-LIVER/KIDNEY MICRO AB [id number] SER/RF TYPE CODE TESTS RESULT OUT OF RANGE REFERENCE UNITS LAB L506.0400 0.76-1.46 ng/dL Normal T4 FREE 1.06 DIRECT Performed By: #### L500.3400, L501.5100, L501.35053, L501.9520, L503.6550, L506.0400 #### [facility] [address] [facility] [place], [place], [address] ANTI-MITOCHONDRIAL AB Collected: Status: F Source: [place] 02/10/2018 8:[address] [facility] REPOSITORY TYPE CODE TESTS RESULT OUT OF RANGE REFERENCE UNITS LAB L800.1280 0.0-20.0 Units Normal MITOCHN AB <20.0 Result Comment: Negative 0.0 - 20.0 Equivocal 20.1 - 24.9 Positive >24.9 Mitochondrial (M2) Antibodies are found in 90-96% of patients with primary biliary cirrhosis. Performed By: #### L800.1280, L3100.5475 #### [facility] (refer to report for specific site) refer to report for address and phone number ANTINUCLEAR ANTIBODIES Collected: 02/10/2018 Status: F Source: [place] DIRECT 8:[address] [facility] REPOSITORY TYPE CODE TESTS RESULT OUT OF RANGE REFERENCE UNITS LAB L3100.5475 Negative Normal Negative MELI-DIRECT Result Comment: Performed at: - [facility] [id number] Tube Heater: Constantine Christianson PhD, Phone: [phone] Performed By: #### L800.1280, L3100.5475 #### [facility] (refer to report for specific site) refer to report for address and phone number ANTI-SMOOTH MUSCLE ABS Collected: 02/10/2018 Status: F Source: [place] 8:[address] [facility] REPOSITORY Order Comment: Comments: ANTI-LIVER/KIDNEY MICRO AB [id number] SER/RF TYPE CODE TESTS RESULT OUT OF RANGE REFERENCE UNITS LAB L803.2200 0-19 Units Normal ANTISMOOTH 6643 2 Result Comment: Negative 0 - 19 Weak positive 20 - 30 Moderate to strong positive >30 Actin Antibodies are found in 52-85% of patients with autoimmune hepatitis or chronic active hepatitis and in 22% of patients with primary biliary cirrhosis. Performed By: #### L803.2200, L3000.0375, L3400.0700, L3400.1500, L3400.3800 #### [facility] (refer to report for specific site) refer to report for address and phone number HEPATITIS PANEL ACUTE Collected: 02/10/2018 Status: F Source: [place] 8:[address] [facility] REPOSITORY Order Comment: Comments: ANTI-LIVER/KIDNEY MICRO AB [id number] SER/RF TYPE CODE TESTS RESULT OUT OF RANGE REFERENCE UNITS LAB L3100.0200 Negative Normal HEP A Negative IgM 6734 LAB L3100.0400 Negative Normal HB Negative SURF AG LAB L3100.0440 Negative Normal HB Negative CORE [id number] LAB L3100.0650 0.0-0.9 s/co ratio Normal HEP C <0.1 AB Result Comment: Negative: < 0.8 Indeterminate: 0.8 - 0.9 Positive: > 0.9 The CDC recommends that a positive HCV antibody result be followed up with a HCV Nucleic Acid Amplification test (772610). Performed By: #### L803.2200, L3000.0375, L3400.0700, L3400.1500, L3400.3800 #### [facility] (refer to report for specific site) refer to report for address and phone number CERULOPLASMIN Collected: 02/10/2018 Status: F Source: [place] 8:[address] [facility] REPOSITORY Order Comment: Comments: ANTI-LIVER/KIDNEY MICRO AB [id number] SER/RF TYPE CODE TESTS RESULT OUT OF RANGE REFERENCE UNITS LAB L3400.0700 19.0-39.0 mg/dL Normal CERULOPLAS 1560 22.0 Performed By: #### L803.2200, L3000.0375, L3400.0700, L3400.1500, L3400.3800 #### [facility] (refer to report for specific site) refer to report for address and phone number CMV ACUTE ANTIBODY Collected: 02/10/2018 Status: F Source: [place] I[place] 8:[address] [facility] REPOSITORY Order Comment: Comments: ANTI-LIVER/KIDNEY MICRO AB [id number] SER/RF TYPE CODE TESTS RESULT OUT OF RANGE REFERENCE UNITS LAB L3400.1500 0.0-29.9 AU/mL Normal CMVIgM AB < 30.0 Result Comment: Negative <30.0 Equivocal 30.0 - 34.9 Positive >34.9 A positive result is generally indicative of acute infection, reactivation or persistent IgM production. Performed By: #### L803.2200, L3000.0375, L3400.0700, L3400.1500, L3400.3800 #### [facility] (refer to report for specific site) refer to report for address and phone number TRANSFERRIN Collected: 02/10/2018 Status: F Source: [place] 8:[address] [facility] REPOSITORY Order Comment: Comments: ANTI-LIVER/KIDNEY MICRO AB [id number] SER/RF TYPE CODE TESTS RESULT OUT OF RANGE REFERENCE UNITS LAB L3400.3800 200-370 mg/dL Normal TRANSFERRN 4937 250 Result Comment: Performed at: [facility] [id number] Tube Heater: Constantine Christianson PhD, Phone: [phone] Performed By: #### L803.2200, L3000.0375, L3400.0700, L3400.1500, L3400.3800 #### [facility] (refer to report for specific site) refer to report for address and phone number MISCELLANEOUS LAB Collected: 02/10/2018 Status: F Source: [place] PROCEDURE 8:[address] [facility] REPOSITORY Order Comment: Comments: ANTI-LIVER/KIDNEY MICRO AB [id number] SER/RF Test(s) Ordered: ANTI-LIVER/KIDNEY MICROS AB [id number] SER/RF TYPE CODE TESTS RESULT OUT OF RANGE REFERENCE UNITS LAB L801.1541 Normal [facility] TEST Result Comment: TEST RESULT UNITS REF INTERVAL Liver-Kidney Microsomal Ab <1.0 Units 0.0 - 20.0 Negative 0.0 - 20.0 Equivocal 20.1 - 24.9 Positive >24.9 LKM type 1 antibodies are detected in patients with autoimmune hepatitis type 2 and in up to 8% of patients with chronic HCV infection. TESTING PERFORMED AT [facility]. ORIGINAL REPORT ON FILE IN LAB CONTAINS ADDITIONAL TEST SITE INFORMATION. Performed By: #### L801.1541 #### [facility] [address] [facility] [place], [address] CAROTID DUPLEX Observed: 02/08/2018 Status: F Source: [place] ULTRASOUND 10:[address] [facility] REPOSITORY [facility] Cardiovascular Services [address] [place] [address] Carotid Duplex Ultrasound 02/07/18 0840 MR#: [id number] Acct: [id number] Name: MARICRUZ GRIGSBY [place] Rep #: [id number] : 1940 77 From: Mehran Damon MD Attending Dr: Lance Messina DO Status: DIS DEEPAK Ordering Dr: María Barnes MD Date: 02/06/18 Location: [facility] Sex: F C Admitted: 02/06/18 Reason For Study: TIA Rt. Velocities/BP Lt. Velocities/BP Prox CCA 89.1/16.4 cm/sec. Prox CCA 95.0/16.4 cm/sec. Mid CCA 78.0/16.4 cm/sec. Mid CCA 86.2/17.6 cm/sec. Dist CCA 75.0/16.4 cm/sec. Dist CCA 66.3/15.2 cm/sec. Prox ICA 46.9/8.3 cm/sec. Prox ICA 66.8/18.2 cm/sec. Mid ICA 80.1/21.6 cm/sec. Mid ICA 95.4/24.1 cm/sec. Dist ICA 69.3/12.5 cm/sec. Dist ICA 99.6/24.4 cm/sec. Rt. ICA/CCA = 1.0. Lt. ICA/CCA = 1.2. Prox ECA 76.2/9.4 cm/sec. Prox ECA 87.9/7.0 cm/sec. Rt. Vert. 52.8/11.7 cm/sec. Lt. Vert. 65.2/11.8 cm/sec. Right Extracranial There is intimal thickening but no significant atherosclerotic plaque noted in the right common carotid artery. There is heterogeneous, irregular atherosclerotic plaque noted in the right internal carotid artery. The right internal carotid artery is very tortuous. There is intimal thickening but no significant atherosclerotic plaque noted in the right external carotid artery. Antegrade flow is noted in the right vertebral artery. Left Extracranial There is intimal thickening but no significant atherosclerotic plaque noted in the left common carotid artery. There is no significant atherosclerotic plaque noted in the left internal carotid artery. The left internal carotid artery is very tortuous. There is intimal thickening but no significant atherosclerotic plaque noted in the left external carotid artery. Antegrade flow is noted in the left vertebral artery. Procedure Carotid Duplex 64714. Exam performed portable in patient room. Interpretation Summary Mild (<50%) stenosis right extracranial internal carotid. No significant atherosclerotic plaque or stenosis noted in the left internal carotid artery. Flow within the vertebral arteries is antegrade bilaterally. Ordering Physician: María Barnes Referring Physician: Doris Navarro M.D. Performed By: Nancy Stevens RVT 02/08/18 1030 Date Mehran Damon MD CC: María Barnes; Doris Navarro DO; Lance Messina DO Date Dictated: 02/07/18 0840 Date Transcribed: 02/08/18 1030 Flumer: Signed DISCHARGE SUMMARY Observed: 02/07/2018 Status: F Source: [place] 5:[address] [facility] REPOSITORY [facility] Medical Records Department [address] [place] [address] Discharge Summary 02/07/18 1710 MR#: [id number] Acct: [id number] Name: MARICRUZ GRIGSBY Rep #: [id number] : 1940 77 From: Lance Messina DO PCP: Doris Navarro DO Status: DIS DEEPAK Y Location: [place] [address] Discharge Date and Diagnosis Date of Admission: 02/06/18 Date of Discharge: 02/07/18 - Primary Discharge Diagnosis #1 double vision-etiology unknown #2 cerebrovascular disease #3 hyperlipidemia #4 chronic kidney disease stage III secondary to type 2 diabetes #5 type 2 diabetes #6 hypertension - Secondary Discharge Diagnosis Chronic Problems CKD (chronic kidney disease) stage 3, GFR 30-59 ml/min (Chronic) Esophageal reflux (Chronic) History of pancreatitis (Chronic) History of abdominal pain (Chronic) Type 2 diabetes mellitus (Chronic) Obesity (Chronic) Hypothyroidism (Chronic) CVA (cerebral vascular accident) (Chronic) Hypertension (Chronic) Hospital Course and Treatment Imaging Results: 02/07/18 21:53 Brain without Contrast [MRI] Urgent Operations: None Procedures: 2-D Echocardiogram Summary of Care Provided: The patient is a 77 year old F who was seen in the emergency room at [facility] with chief complaint of double vision. She stated that the symptoms were intermittent. Patient has a past history of stroke. Workup in the emergency room included a CT of the brain which showed chronic changes, CBC chemistry and troponin are unremarkable. Patient was placed in observation status on PCU, echocardiogram was obtained which was unremarkable, MRI of the brain was obtained which showed no acute process only an old pontine stroke and a small old lacunar infarction. Patient was seen by neurology who ordered additional lab tests to rule out myasthenia gravis. On 02/07/18, patient was seen and examined felt to be in stable condition for discharge home. Patient's carotid duplex scan was pending at the time of this dictation Discharge Activity: Return to Normal Activity Weight Bearing Status: Full weight bearing Home Medications: Medications to take at Discharge Alprazolam 0.05 mg PO BID PRN 08/09/13 Amlodipine Besylate 5 mg PO DAILY 08/09/13 Celecoxib [Celebrex] 100 mg PO DAILY 08/09/13 Citalopram Hydrobromide [Citalopram HBr] 40 mg PO DAILY 08/09/13 Clopidogrel Bisulfate [Clopidogrel] 75 mg PO DAILY 08/09/13 Hydrochlorothiazide 25 mg PO DAILY 08/09/13 Metformin HCl [Metformin HCl ER] 500 mg PO BREAKFAST 08/09/13 Metoprolol Tartrate [Lopressor (beta mert)] 100 mg PO DAILY 08/09/13 Omeprazole 20 mg PO DAILY 08/09/13 Rosuvastatin Calcium [Crestor] 5 mg PO DAILY 09/19/15 Losartan Potassium [Cozaar] 50 mg PO BID 10/22/16 Levothyroxine [Synthroid] 200 mcg PO DAILY 02/06/18 Primary Care Physician: Doris Navarro DO [Primary Care Provider] - Please follow up with your Primary Care Physician in: in 1- 2 weeks Please Follow Up With: Rod Melendrez MD When: in 2-3 weeks [phone] Disposition: Home Minutes spent on discharge:: 25 Patient Condition:: Stable Medical Necessity - Tobacco Use Smoking Status: Never smoker Meaningful Use Info Meaningful Use Diagnoses (Choose all that apply): None applicable Code Visit OBSV E AND M: 63241 Observation care discharge 02/07/18 1715 <Electronically signed by Lance Messina DO> Date Lance Mesisna DO Cosigner Signature (if applicable): Date CC: Doris Navarro DO; Lance Messina DO Signed DISCHARGE INSTRUCTION Observed: 02/07/2018 Status: F Source: [place] 4:[address] [facility] REPOSITORY [facility] Medical Records Department [address] [place] [address] Instructions for Home/Discharge Instructions 02/07/18 1639 MR#: [id number] Acct: [id number] Name: MARICRUZ GRIGSBY Rep #: [id number] : 1940 77 From: Lance Messina DO PCP: Doris Navarro DO Status: ADM DEEPAK You will use the following diet at home:: No restrictions Your food should be the consistency of: Regular Your liquids should be the consistency of: Regular/Thin Discharge Activity: Return to Normal Activity Weight Bearing Status: Full weight bearing Allergies/Adverse Reactions: Allergies naproxen [From Naprosyn] Allergy (Verified 02/06/18 17:38) Hives Penicillins [PCN] Allergy (Verified 02/06/18 17:38) Hives guaifenesin [From Mucinex] Adverse Reaction (Verified 02/06/18 17:38) Unknown ketoprofen Adverse Reaction (Verified 02/06/18 17:38) Unknown loracarbef [From Lorabid] Adverse Reaction (Verified 02/06/18 17:38) Unknown bee sting Adverse Reaction (Uncoded 02/06/18 17:38) Unknown Medications to take at Discharge Alprazolam 0.05 mg PO BID PRN 08/09/13 Amlodipine Besylate 5 mg PO DAILY 08/09/13 Celecoxib [Celebrex] 100 mg PO DAILY 08/09/13 Citalopram Hydrobromide [Citalopram HBr] 40 mg PO DAILY 08/09/13 Clopidogrel Bisulfate [Clopidogrel] 75 mg PO DAILY 08/09/13 Hydrochlorothiazide 25 mg PO DAILY 08/09/13 Metformin HCl [Metformin HCl ER] 500 mg PO BREAKFAST 08/09/13 Metoprolol Tartrate [Lopressor (beta mert)] 100 mg PO DAILY 08/09/13 Omeprazole 20 mg PO DAILY 08/09/13 Rosuvastatin Calcium [Crestor] 5 mg PO DAILY 09/19/15 Losartan Potassium [Cozaar] 50 mg PO BID 10/22/16 Levothyroxine [Synthroid] 200 mcg PO DAILY 02/06/18 Primary Care Physician: Doris Navarro DO [Primary Care Provider] - Please follow up with your Primary Care Physician in: in 1- 2 weeks Test Results: Test results from this visit will be discussed in further detail at your follow-up appointment, if applicable. Please Follow Up With: Rod Melendrez MD When: in 2-3 weeks [phone] 02/07/18 1642 <Electronically signed by Lance Messina DO> Date Lance Messina DO CC: Doris Melanie DO; Rod Melendrez MD BEDSIDE GLUCOSE Collected: 02/07/2018 Status: F Source: [place] 4:[address] [facility] REPOSITORY TYPE CODE TESTS RESULT OUT OF REFERENCE UNITS RANGE LAB L501.080 70-110 mg/dL High BEDSIDE GLU 165 Result Comment: Dr Vincent Followed Insulin Given MANAGEMENT OF PATIENT CARE PER NURSING PROTOCOL Performed By: #### L501.080 #### [facility] Laboratory Point of Care [address] [place] [address] [facility] MANUAL LATHE MACHINIST AB, Collected: 02/07/2018 Status: F Source: [place] BLOCK[place] 12:[address] [facility] REPOSITORY TYPE CODE TESTS RESULT OUT OF RANGE REFERENCE UNITS LAB L3410.0100 0-25 % Normal [facility] REC 11 92207 Result Comment: Negative: 0 - 25 Borderline: 26 - 30 Positive: >30 Results for this test are for research purposes only by the assay's insole channeler. The performance characteristics of this product have not been established. Results should not be used as a diagnostic procedure without confirmation of the diagnosis by another medically established diagnostic product or procedure. Performed By: #### L3410.0100, L3410.0200 #### [facility] (refer to report for specific site) refer to report for address and phone number [facility] AB MODULATING Collected: 02/07/2018 Status: F Source: [place] 12:[address] [facility] REPOSITORY TYPE CODE TESTS RESULT OUT OF RANGE REFERENCE UNITS LAB L3410.0200 0-20 % Normal [facility] AB <12 [address]372 Result Comment: Negative: <21 Equivocal: 21 - 25 Positive: >25 The assay is linear between values of 12 and 64. Those <12 and >64 are reported as such. No single value for ACR-modulating antibody should be used as a sole basis for diagnosis or response to therapy. Performed at: - [facility] [id number] Tube Heater: Frantz Josue MD, Phone: [phone] Performed By: #### L3410.0100, L3410.0200 #### [facility] (refer to report for specific site) refer to report for address and phone number ECHOCARDIOGRAM COMPLETE Observed: 02/07/2018 Status: F Source: [place] 12:[address] [facility] REPOSITORY [facility] Cardiovascular Services [address] [place] [address] Echo Complete 02/07/18 1102 MR#: [id number] Acct: [id number] Name: MARICRUZ GRIGSBY Rep #: [id number] : 1940 77 From: Jason Barth MD Attending Dr: Lance Messina DO Status: ADM DEEPAK Ordering Dr: María Barnes MD Date: 02/06/18 Location: U Sex: F C Admitted: 02/06/18 Reason For Study: TIA/CVA Procedure This was a 2D Doppler, Color Flow transthoracic echocardiogram. The study was technically difficult. PT had difficulty lying still for exam. Exam performed portable in patient room. Left Ventricle Normal LV size. Left ventricular systolic function is normal. The estimated ejection fraction is 55 %. Transmitral diastolic flow velocities suggest mild (stage 1) diastolic dysfunction (reversed pattern). No regional wall motion abnormalities noted. Right Ventricle Normal RV size. Normal systolic function. Atria Normal left atrium. Normal right atrium. Mitral Valve Mitral valve not well visualized. Tricuspid Valve The tricuspid valve is not well visualized. Aortic Valve The aortic valve is not well visualized. Great Vessels Normal aortic root. The pulmonary artery is normal size. Normal inferior vena cava. Pericardium/Pleural No pericardial effusion. Medication Performed a rapid injection of agitated mix of 9 cc saline and 1cc air to assess for atrial septal defect x 2. MMode/2D Measurements AND Calculations LVIDd: 4.9 cm IVSd: 1.1 cm LVOT diam: 2.0 cm LVIDs: 3.5 cm LVPWd: 1.3 cm LVOT area: 3.1 cm2 FS: 27.6 % Ao root diam: 3.4 cm LAV(MOD-bp): 44.7 ml LA A4 area: 17.2 cm2 LA dimension: 4.2 cm LAV(MOD-bp) Indexed: 23.4 ml/m2 LAV(MOD-sp2): 44.5 ml LAV(MOD-sp4): 40.3 ml RA A4 area: 14.0 cm2 Doppler Measurements AND Calculations MV E max karina: 67.8 cm/sec Lat Peak E' Karina: 6.3 cm/sec Med Peak E' Karina: 5.6 cm/sec MV A max karina: 106.9 cm/sec E/E' lat: 10.7 E/E' med: 12.1 MV E/A: 0.63 Ao V2 max: 235.3 cm/sec LV V1 max: 124.6 cm/sec SV(LVOT): 79.3 ml Ao max P.2 mmHg LV V1 max P.2 mmHg Ao V2 mean: 148.4 cm/sec LV V1 mean P.0 mmHg Ao mean P.2 mmHg LV V1 mean: 81.0 cm/sec Ao V2 VTI: 43.7 cm LV V1 VTI: 25.3 cm OCTAVIO(I,D): 1.8 cm2 OCTAVIO(V,D): 1.7 cm2 PA V2 max: 109.6 cm/sec TR max karina: 229.8 cm/sec TR max P.2 mmHg Interpretation Summary Normal LV size. Left ventricular systolic function is normal. The estimated ejection fraction is 55 %. Transmitral diastolic flow velocities suggest mild (stage 1) diastolic dysfunction (reversed pattern). The study was technically difficult. Limited views were obtained. Ordering Physician: María Barnes Referring Physician: Doris Navarro Performed By: Sierra Martinez, [place], RVT 02/07/18 1221 Date Jason Barth MD CC: María Barnes; Doris Navarro DO; Lance Messina DO Date Dictated: 02/07/182 Date Transcribed: 02/07/181220 Flumer: Signed BEDSIDE GLUCOSE Collected: 02/07/2018 Status: F Source: [place] 11:25 AM [facility] REPOSITORY TYPE CODE TESTS RESULT OUT OF REFERENCE UNITS RANGE LAB L501.080 70-110 mg/dL High BEDSIDE GLU 224 Result Comment: MANAGEMENT OF PATIENT CARE PER NURSING PROTOCOL Performed By: #### L501.080 #### [facility] Laboratory Point of Care [address] [place] [address] BEDSIDE GLUCOSE Collected: 02/07/2018 Status: F Source: [place] 6:[address] [facility] REPOSITORY TYPE CODE TESTS RESULT OUT OF REFERENCE UNITS RANGE LAB L501.080 70-110 mg/dL High BEDSIDE GLU 161 Result Comment: MANAGEMENT OF PATIENT CARE PER NURSING PROTOCOL Performed By: #### L501.080 #### [facility] Laboratory Point of Care [address] [place] [address] LIPID PROFILE Collected: 02/07/2018 Status: F Source: [place] 5:[address] [facility] REPOSITORY TYPE CODE TESTS RESULT OUT OF RANGE REFERENCE UNITS LAB L501.4900 200 mg/dL Normal CHOL 152 Result Comment: <200 mg/dL Desirable 200-240 mg/dL Borderline >240 mg/dL High Risk LAB L501.5000 mg/dL High TRIG 233 Result Comment: The drugs N-Acetylcysteine and Metamizole may falsely depress this assay. Serum Triglycerides Reference Interval Normal <150 mg/dL Borderline high 150 - 199 mg/dL High 200 - 499 mg/dL Very High > or = 500 mg/dL LAB L501.6400 mg/dL Normal HDL 44 Result Comment: The drugs N-Acetylcysteine and Metamizole may falsely depress this assay. Reference Range HDL <40 mg/dL Low HDL Cholesterol HDL >or= 60 mg/dL High HDL Cholesterol LAB L501.6500 0-130 mg/dL Normal LDL 61 LAB L501.6600 5-40 mg/dL High VLDL 47 Performed By: #### L500.4100 #### [facility] Laboratory [address] [place], [address] EMERGENCY DEPARTMENT Observed: 02/07/2018 Status: F Source: [place] SUMMARY 12:[address] [facility] REPOSITORY [facility] Medical Records Department [address] [place] [address] Emergency Department Summary 02/06/182020 MR#: [id number] Acct: [id number] Name: MARICRUZ GRIGSBY Rep #: [id number] : 1940 77 From: Jered Marte MD PCP: Doris Navarro DO Status: ADM DEEPAK - ER Visit Summary Date of Service: 02/06/18 Chief Complaint: Double vision History of Present Illness: The patient is a 77 F presenting for evaluation secondary to diplopia. Patient states that yesterday she started to notice that she was having some double vision. She reports that this came and went. Patient reports that today she was noticing that she was having some blurry vision, and then when she was in the car she had a sudden onset of worsening double vision. She reports that things that are far away especially appear to be side by side. This is improved by closing one eye. Patient denies that she has any sort of numbness weakness or speech difficulty associated with this. Patient had a history of a stroke in the distant past. She denies any head injuries. She does endorse mild headache associated with it. No infectious signs or symptoms. Review of systems otherwise negative. Physical Examination: Vital signs are within normal limits, patient is afebrile. General: Patient is well-nourished well-developed and in no acute distress. Head: Normocephalic, atraumatic Eyes: Pupils equal round and reactive bilaterally, extra occular motion intact bialterally, no evidence of disconjugate gaze or nystagmus ENT: Moist mucous membranes Neck: Supple, no lymphadenopathy, no JVD, no meningismus CVS: Heart regular rate and rhythm, no murmurs, rubs or gallops, radial pulses 2+ bilaterally Resp: Respirations nondistressed, lung sounds clear bilaterally Abdomen: Soft, nontender, nondistended, no palpable masses, normal bowel sounds Back: Nontender Extremities: Nontender, atraumatic, active full range of motion, no peripheral edema Skin: warm, no rashes, no petechia Neuro: Alert and oriented x 4, CN 2-12 intact, no lateralizing neurological defecits, NIH stroke scale is 0, normal cerebellar testing Psyc: Normal affect Test Results: CT brain shows chronic changes. EKG demonstrates sinus rate [address] segments normal T waves no changes from prior. CBC chemistry and troponin are unremarkable. Emergency Department Course and Treatment: Patient presents for evaluation secondary to diplopia. A stroke workup was obtained and was found to be unremarkable. Patient's last stroke workup was 6 years ago. I believe she requires admission. I discussed this with the hospitalist. Disposition: Admission Impression: 1. Diplopia This note was generated with [employer] dictation software. It may contain incorrect words, spelling, and punctuation that were not noted in review of the chart prior to signing ED Disposition - Plan for ED Patient: Chief Complaint: Headache Referrals: Doris Navarro, [Primary Care Provider] - What to do if you have Problems For any increased pain, shortness of breath, bleeding, nausea or vomiting, chest pain, or any unexpected problems, contact your Primary Care Provider. Call [facility] ([phone]) or report to the closest Emergency Room. Call 911 if necessary. 02/07/18 0012 <Electronically signed by Jered Marte MD> Date Jered Marte MD Cosigner Signature (If Indicated): Date CC: Doris Navarro DO BEDSIDE GLUCOSE Collected: 02/06/2018 Status: F Source: [place] 11:[address] [facility] REPOSITORY TYPE CODE TESTS RESULT OUT OF REFERENCE UNITS RANGE LAB L501.080 70-110 mg/dL High BEDSIDE GLU 145 Result Comment: MANAGEMENT OF PATIENT CARE PER NURSING PROTOCOL Performed By: #### L501.080 #### [facility] Laboratory Point of Care [address] [place] [address]. [place] [address] BRAIN WITHOUT Observed: 02/06/2018 Status: F Source: [place] CONTRAST 9:[address] [facility] REPOSITORY [facility] Imaging Services [address] [place] [address] Brain without Contrast MR#: [id number] Acct: [id number] Name: JOSE AHOMERO CRUZMARICRUZ L Rep #: [id number] : 1940 F 77 From: Darby Franco PCP: Doris Navarro DO Status: ADM DEEPAK Study: Brain without Contrast Date of Exam: 02/07/18 Exam# [id number] Ordering Dr: María Barnes MD STUDY: MRI BRAIN WITHOUT CONTRAST REASON FOR EXAM: Female, 77 years old. CVA, blurry vision, DIPLOPIA. TECHNIQUE: Standardized multiplanar fat and water weighted pulse sequences were obtained. COMPARISON: May 22, 2012 FINDINGS: There is mild cerebral atrophy with widening of the extra- axial spaces and ventricular dilatation. There are multiple white matter hyperintensities, distributed throughout the deep white matter tracts of the cerebral hemispheres, consistent with moderate chronic white matter ischemic changes. Chronic left freed radiata lacunar infarct is noted. Normal bilateral basal ganglia. Normal thalami. There is no extra-axial fluid accumulation. Normal flow voids within the major intracranial circulation suggesting patency by spin echo criteria. Normal sella turcica, pituitary gland, infundibular stalk, optic chiasm and hypothalamus. Normal tectal plate and pineal gland. Chronic right pontine infarct is noted. Normal cerebellum. Normal basal cisterns. Normal bilateral temporal bones. Normal bilateral internal auditory canals. MRI/Brain without Contrast IMPRESSION: No acute intracranial abnormality. Chronic lacunar infarcts. Moderate chronic microvascular ischemic changes. Electronically Signed: Darby Franco MD at 10:40 EDT Tel , Service support , CC: María Barnes; Doris Navarro DO Flumer: Signed HISTORY AND PHYSICAL Observed: 02/06/2018 Status: F Source: [place] EXAM 9:[address] [facility] REPOSITORY [facility] Medical Records Department [address] [place] [address] History and Physical 02/06/182050 MR#: [id number] Acct: [id number] Name: MARICRUZ GRIGSBY Rep #: [id number] : 1940 77 From: María Barnes MD PCP: Doris Navarro DO Status: REG ER Y Location: ED Problem List (1) CKD (chronic kidney disease) stage 3, GFR 30-59 ml/min Status: Chronic (2) Esophageal reflux Status: Chronic (3) Type 2 diabetes mellitus Status: Chronic (4) Obesity Status: Chronic (5) Hypothyroidism Status: Chronic (6) CVA (cerebral vascular accident) Status: Chronic (7) Hypertension Status: Chronic History of Present Illness Date of Admission: 02/06/18 Chief Complaint: Diplopia, blurry vision. The patient is a 77 year old F with past medical history as mentioned above presented to the emergency room because of diplopia and blurry vision. Her symptoms started yesterday evening with seeing things double, intermittent, comes and goes, associated with blurry vision, improved by closing one eye and it happens on both eyes and taking care of glasses off does not make any difference. Her mentioned that she complained of headache 2 days ago and usually never complains of headache. She denied slurred speech, facial numbness and tingling. She denied numbness or tingling of both upper or lower extremities. She had history of stroke with very minimal weakness on the right side of her body. She denied head injury or mechanical fall. She denied ear symptoms or pain. She denies fever or chills. She denied chest pain or shortness of breath. In the emergency department, her vital signs were stable. Her routine blood work was remarkable for creatinine 1.42, otherwise normal. EKG revealed normal sinus rhythm without evidence of cardiac arrhythmias or acute ischemic changes. Troponin is negative. CT scan brain showed no acute infarction or hemorrhage. Chest x-ray showed no acute findings. She is being admitted for diplopia/blurred vision, possible TIA for evaluation. Past Medical History Past Medical History (Chronic Problems): Chronic Problems CKD (chronic kidney disease) stage 3, GFR 30-59 ml/min (Chronic) Esophageal reflux (Chronic) History of pancreatitis (Chronic) History of abdominal pain (Chronic) Type 2 diabetes mellitus (Chronic) Obesity (Chronic) Hypothyroidism (Chronic) CVA (cerebral vascular accident) (Chronic) Hypertension (Chronic) Allergies naproxen [From Naprosyn] Allergy (Verified 02/06/18 17:38) Hives Penicillins [PCN] Allergy (Verified 02/06/18 17:38) Hives guaifenesin [From Mucinex] Adverse Reaction (Verified 02/06/18 17:38) Unknown ketoprofen Adverse Reaction (Verified 02/06/18 17:38) Unknown loracarbef [From Lorabid] Adverse Reaction (Verified 02/06/18 17:38) Unknown bee sting Adverse Reaction (Uncoded 02/06/18 17:38) Unknown Home Medications: Ambulatory Orders Medication Instructions Recorded Alprazolam 0.05 mg PO BID PRN 08/09/13 Amlodipine Besylate 5 mg PO DAILY 08/09/13 Surgical History: appendectomy, cholecystectomy Psychiatric History: No pertinent psych hx FOURTH MATE History: No pertinent FOURTH MATE history Lives: Spouse/ Significant Other Smoking Status: Never smoker Alcohol: None Drugs: None - *Family History Maternal History Items: No pertinent history Paternal History Items: No pertinent history Review of Systems Constitutional: Denies: Anorexia, Chills, Fever, Weakness Eyes: Reports: Blurred vision, Double vision. Denies: Drainage, Redness, Vision Change HEENT: Denies: Difficulty Hearing, Ear Pain, Eye Pain, Nasal Congestion, Sore Throat Cardiovascular: Denies: Chest Pain, Chest Pressure, Chest Tightness, Heaviness, Light Headedness, Palpitations, Syncope Respiratory: Denies: Cough, Pleuritic Pain, Shortness of Breath, Sputum production, Wheezing Gastrointestinal: Denies: Abdominal Pain, Constipation, Diarrhea, Nausea, Vomiting Genitourinary: Denies: Dysuria, Frequency, Hematuria Musculoskeletal: Denies: Arm Pain, Back Pain, Foot Pain Skin: Denies: Dryness, Rash Neurological: Reports: Blurred vision, Double vision, Headaches. Denies: Balance problems, Change in Speech, Slurred speech, Confusion, Focal weakness, Numbness, Tingling Psychiatric: Denies: Anxiety, Depression Endocrine: Denies: Change in Body Habitus, Polydipsia VTE Information - Inpt Only VTE Present on Admission: No VTE Mechan Device Prophylaxis: None VTE Pharm Prophylaxis ordered?: Yes - Physical Exam General: Alert, Oriented x3, Cooperative, No apparent distress HEENT: Atraumatic, PERRLA, EOMI Oral: Moist Mucosa, No Gingival or Mucosal Lesions/ Ulcerations Neck: Supple, No JVD, Negative Carotid Bruits, Trachea Midline, Thyroid Normal Size and Texture Lungs: Clear to auscultation, No rhonchi, No wheeze, No rales, Diminished Cardiovascular: Regular rate, Regular Rhythm, Normal S1, Normal S2, PMI Normal Abdomen: Bowel Sounds Present, Soft, Non Tender, Non-Distended, No Hepato-splenomegaly, Obese Extremities: No clubbing, No cyanosis, No edema Skin: No rashes, No breakdown Musculoskeletal: No Tenderness to Palpation of Joints or Extremities Lymphatic: No Cervical, Supraclavicular, or Inguinal Adenopathy Neurological: Cranial nerves II-XII grossly intact, Motor Exam 5/5 strength throughout Psych/Mental Status: Normal Affect, Appropriate, Alert and oriented to time, place, person, mood and affect Vital Signs Temp Pulse Resp BP Pulse Ox 97.6 F L 63 17 150/68 H 98 02/06/18 17:29 02/06/18 20:19 02/06/18 20:19 02/06/18 20:19 02/06/18 20:19 Oxygen Delivery Method [...] EDT , Service support , Chest X-Ray 02/06/18 18:35 IMPRESSION: No acute cardiopulmonary findings or changes. Negative for new consolidation, focal atelectasis or a substantial pleural effusion. Mild chronic changes in the right lung base above a mildly elevated diaphragm. Multiple prior healed right rib fractures. Electronically Signed: Renata Lee MD at 18:58 EDT , Service support , Assessment/Plan This is a 77 years old female patient presented to the emergency room because of blurred vision/diplopia and she is being admitted for evaluation for probable TIA. #1 diplopia/blurred vision/questionable TIA versus acute stroke: Initial CT scan brain without acute findings. No focal deficit on physical exam. Vital signs are stable. EKG revealed normal sinus rhythm, no acute ischemic changes. Routine blood work reviewed. She did have history of stroke around 8 years ago with minimal residual right-sided body weakness. Plan: Admit to PCU, cardiac monitoring, NIH stroke scale, MRI brain, 2D echocardiogram, bilateral carotid Doppler, neurology consult, continue Plavix and Crestor, PT OT evaluation and treatment. #2 hypertension: Blood pressure stable, continue Norvasc, HCTZ and losartan as well as metoprolol. #3 type 2 diabetes mellitus: ADA diet, Accu-Cheks, insulin sliding scale, hold metformin. #4 hypothyroidism: Continue levothyroxine. #5 history of stroke: With no obvious significant residual deficit of the patient complained of right-sided weakness but her power is 5.5 on all limbs. Plan as above, continue Plavix and statins. #6 hyperlipidemia: Continue statins. #7 stage III chronic kidney disease: Baseline creatinine is around 1.3-1.7 mg/dL. Admission creatinine is 1.42, stable. #8 DVT prophylaxis: Subcu heparin. This note was generated with [employer] dictation software. It may contain incorrect words, spelling, and punctuation that were not noted in checking the note before signing. Code Visit OBSV E AND M: 18567 Initial observation care L3 02/06/18 5202 <Electronically signed by María Barnes MD> Date María Barnes MD Cosigner Signature: Date (if applicable) CC: María Barnes; Doris Navarro DO Signed BEDSIDE GLUCOSE Collected: 02/06/2018 Status: F Source: [place] 6:[address] [facility] REPOSITORY TYPE CODE TESTS RESULT OUT OF REFERENCE UNITS RANGE LAB L501.080 70-110 mg/dL High BEDSIDE GLU 152 Result Comment: MANAGEMENT OF PATIENT CARE PER NURSING PROTOCOL Performed By: #### L501.080 #### [facility] Laboratory Point of Care [address] [place] [address] CHEST 1 VIEW Observed: 02/06/2018 Status: F Source: [place] 5:[address] [facility] REPOSITORY [facility] Imaging Services [address] [place] [address] Chest 1 View MR#: [id number] Acct: [id number] Name: CLIFFORD CRUZMARICRUZ Stuart Rep #: [id number] : 1940 F 77 From: Renata Lee MD PCP: Doris Navarro DO Status: REG ER Study: Chest 1 View Date of Exam: 02/06/18 Exam# [id number] Ordering Dr: Jered Marte MD STUDY: X-RAY CHEST REASON FOR EXAM: Female, 77 years old. Headache [...] , CC: Doris Navarro DO; Jered Marte Flumer: Signed BRAIN/HEAD WITHOUT Observed: 02/06/2018 Status: F Source: [place] CONTRAST 5:[address] [facility] REPOSITORY [facility] Imaging Services [address] [place] [address] Brain/Head without Contrast MR#: [id number] Acct: [id number] Name: MARICRUZ GRIGSBY Rep #: [id number] : 1940 F 77 From: Renata Lee MD PCP: Doris Navarro DO Status: REG ER Study: Brain/Head without Contrast Date of Exam: 02/06/18 Exam# [id number] Ordering Dr: Jered Marte MD STUDY: CT BRAIN WITHOUT CONTRAST REASON FOR EXAM: Female, 77 years old. Blurred vision and headache. Prior history of stroke. RADIATION DOSAGE (If Supplied By Facility): CTDIvol = ( 44.99 ) mGy, DLP = ( 779.24 ) mGycm TECHNIQUE: Transaxial CT imaging of the brain was performed without administration of intravenous contrast material. Individualized dose optimization techniques were used for this CT. COMPARISON: Prior CT exam of March 03, 2017 FINDINGS: Normal soft tissue structures. Normal calvarium. There is mild cerebral atrophy with widening of the extra- axial spaces and ventricular dilatation. There are areas of decreased attenuation within the white matter tracts of the supratentorial brain, consistent with microvascular disease changes. More advanced focal ischemic changes in the deep white matter of the left hemisphere, periventricular which may be the sequelae of an old infarct. The finding is stable from the prior examination. Old lacunar infarct of the mid karlene. There is [...] , CC: Doris Navarro DO; Jered Marte Flumer: Signed BASIC METABOLIC Collected: 02/06/2018 Status: F Source: [place] PROFILE (BMP) 5:[address] [facility] REPOSITORY TYPE CODE TESTS RESULT OUT OF RANGE REFERENCE UNITS LAB L501.0100 74-106 mg/dL High GLU 160 Result Comment: Fasting Glucose result greater than or equal to 126 mg/dL suggests DIABETES MELLITUS per A.D.A. criteria. Please note revised GLUCOSE reference range effective 2017. LAB L501.1000 7-18 mg/dL High BUN 24 LAB L501.1100 0.55-1.02 mg/dL High CREAT,SERUM 1.42 Result Comment: The validity of the calculated GFR AND GFRAA in patients over 70 years has not been determined. Clinical correlation is essential. LAB L501.1110 >60 mL/min Low EST GFR 38 Result Comment: Non- GFR Calc LAB L501.1115 >60 mL/min Low EST GFR - AA 46 Result Comment: GFR Calc LAB L501.1255 ml/min Normal Estimated CRCL 44.65 LAB L501.1300 10-20 RATIO Normal BUN/CRE 16.9 LAB L501.2200 8.5-10 mg/dL Normal .1 CA 9.5 LAB L501.5300 136-14 mmol/L Normal 5 NA 139 LAB L501.5600 3.5-5. mmol/L Normal 1 K 4.2 LAB L501.5900 98-107 mmol/L Normal CL 103 LAB L501.6100 21.0-3 mmol/L Normal 2.0 CO2 28.0 LAB L501.6200 5-15 Normal GAP 8 Performed By: #### L500.2500, L501.4010 #### [facility] [address] [place], [address] TROPONIN-I Collected: 02/06/2018 Status: F Source: [place] 5:[address] [facility] REPOSITORY TYPE CODE TESTS RESULT OUT OF RANGE REFERENCE UNITS LAB L501.4010 <0.045 ng/mL Normal < 0.015 TROPONIN-I Result Comment: TROPONIN-I EXPECTED VALUES <0.045 Negative 0.045 - 0.590 Consistent with Cardiac Damage > OR = 0.600 Critical Value Not every elevated troponin is indicative of GA. These values should be used with clinical judgement in examining the patient's clinical picture for diagnosis. To establish a diagnosis of GA versus myocardial injury, there must be a demonstrated rise and/or fall in the troponin values, in addition to ischemic symptoms, EKG changes, new regional wall motion abnormality, and/or angiographical evidence. PLEASE NOTE: REFERENCE RANGES EDITED 17 Performed By: #### L500.2500, L501.4010 #### [facility] Laboratory [address] [place], [address] PROTHROMBIN TIME W/INR Collected: 02/06/2018 Status: F Source: [place] 5:[address] [facility] REPOSITORY TYPE CODE TESTS RESULT OUT OF RANGE REFERENCE UNITS LAB L300.4150 11.7-14.9 SECONDS Normal PROTIME 12.5 LAB L300.4200 Normal INR 0.9 Performed By: #### L300.3900, L300.4310 #### [facility] [address] [place], [address] PARTIAL THROMBOPLAST Collected: 02/06/2018 Status: F Source: [place] TIME 5:[address] [facility] REPOSITORY TYPE CODE TESTS RESULT OUT OF RANGE REFERENCE UNITS LAB L300.4310 24.1-36.2 Seconds Normal PTT 33.0 Performed By: #### L300.3900, L300.4310 #### [facility] [address] [place], [address] CBC W/DIFF, AUTOMATED Collected: 02/06/2018 Status: F Source: [place] 5:[address] [facility] REPOSITORY TYPE CODE TESTS RESULT OUT OF RANGE REFERENCE UNITS LAB L100.1000 4.4-11.0 K/mm3 Normal WBC 9.5 LAB L100.1200 4.2-5.4 M/mm3 Normal RBC 4.36 LAB L100.1300 12.0-15.0 g/dl Normal HGB 12.7 LAB L100.1400 37-47 % Normal HCT 38.9 LAB L100.1500 81-99 fL Normal MCV 89.2 LAB L100.1600 27.0-32.0 pg Normal MCH 29.1 LAB L100.1700 32-36 g/gl Normal MCHC 32.6 LAB L100.1810 11.6-14.6 % Normal RDW CV 14.1 LAB L100.1820 35.1-43.9 fl High RDW SD 45.0 LAB L100.1900 150-450 K/mm3 Normal PLT 248 LAB L100.2000 6.2-12.0 fl Normal MPV 10.5 LAB L100.2100 47-70 % High NEUT% 70.8 LAB L100.2200 19-41 % Low LY% 18.3 LAB L100.2300 0-10 % Normal MONO% 6.2 LAB L100.2400 0-5 % Normal EO% 4.0 LAB L100.2500 0-1 % Normal BASO% 0.4 LAB L100.2550 0.0-0.9 % Normal IM GRAN % 0.300 Result Comment: IG% - Immature Granulocytes (promyelocytes, myelocytes and metamyelocytes) > 1% indicates that a LEFT SHIFT is Present. LAB L100.2620 2.0-7.7 X10 3/uL Normal Absolute Neut 6.7 LAB L100.2720 0.83-4.51 X10 3/ul Normal Absolute Lymph 1.73 Performed By: #### L100.0100 #### [facility] [address] [facility] [place], [place], [address] LIVER Observed: 11/25/2017 Status: F Source: [place] 10:[address] [facility] REPOSITORY [facility] Imaging Services [address] [place] [address] Liver MR#: [id number] Acct: [id number] Name: MARICRUZ GRIGSBY #: [id number] : 1940 F 77 From: Mack Hand MD PCP: Doris Navarro DO Status: REG CLI Study: Liver Date of Exam: 11/25/17 Exam# [id number] Ordering Dr: Doris Navarro DO STUDY: ABDOMINAL ULTRASOUND - RIGHT UPPER QUADRANT REASON FOR VISIT: Female, 77 years old. Elevated LFTs TECHNIQUE: Ultrasound evaluation of the right upper quadrant was performed with real-time and static anderson-scale imaging. TECHNICAL QUALITY: Adequate. COMPARISON: Previous CTs FINDINGS: Liver: The liver measures 18.1 cm. There is increased echogenicity consistent with fatty infiltration. The bile ducts are within normal limits. There is hepatic color flow. The direction of portal flow is hepatopetal. There is no demonstrated mass lesion. Gallbladder: The patient is status post cholecystectomy. Common Bile Duct (C.B.D.): The common bile duct measures 6 mm. Pancreas: Normal size of the head, body and tail of the pancreas. There is increased echogenicity of the pancreas. There is no demonstrated pancreatic mass or cyst. Right Kidney: Normal size of the right kidney. The right kidney measures 10.3 x 6.1 x 5.7 cm. Normal renal cortex. The right cortex measures 0.9 cm. There are multiple simple renal cysts measuring between 1.3 and 4.0 cm There is no right hydronephrosis. US/Liver IMPRESSION: Fatty infiltration of liver, no discrete lesion Previous cholecystectomy Nonspecific echogenic pancreas Simple right renal cysts Electronically Signed: Leopoldo Hand MD at 12:34 EDT , Service support , CC: Doris Navarro DO Flumer: Signed HIP 2-3 VIEWS WITH Observed: 10/29/2017 Status: F Source: [place] [facility] Imaging Services [address] [place] [address] Hip 2-3 Views with Pelvis MR#: [id number] Acct: [id number] Name: MARICRUZ GRIGSBY Rep #: [id number] : 1940 F 77 From: Benji Finch PCP: Doris Navarro DO Status: REG CLI Study: Hip 2-3 Views with Pelvis Date of Exam: 10/29/17 Exam# [id number] Ordering Dr: Thelma Sofia STUDY: X-RAY - PELVIS AND LEFT HIP REASON FOR EXAM: Female, 77 years old. Left hip pain for 2 weeks. No history of trauma. TECHNIQUE: Radiological exam, hip, unilateral, with pelvis when performed; 2 or 3 views. COMPARISON: None. FINDINGS: There is a non-specific bowel gas pattern. Normal visualized soft tissue structures. Normal bilateral iliac wings, sacroiliac joints and visualized sacrum. Normal bilateral superior and inferior pubic rami. Normal pubic symphysis. Normal bilateral ischial tuberosities. Right hip is grossly normal. Normal visualized left femoral head. Normal acetabulum. Normal hip joint. Disc space narrowing in the lower lumbar spine. Phleboliths left hemipelvis. RAD/Hip 2-3 Views with Pelvis IMPRESSION: Normal x-ray examination of the pelvis and hip. Degenerative changes of the lower lumbar spine. Electronically Signed: Benji Finch MD at 0:01 EDT , Service support , CC: QUINN Sofia; Doris Navarro DO Flumer: Signed 12 LEAD ELECTROCARDIOGRAM Observed: 08/27/2017 Status: F Source: [place] 10:37 AM [facility] REPOSITORY [facility] Cardiovascular Services [address] [place] [address] 12 Lead EKG 08/24/17 1719 MR#: [id number] Acct: [id number] Name: MARICRUZ GRIGSBY Rep #: [id number] : 1940 77 From: Maurilio Rowe MD Attending Dr: Status: DEP ER Ordering Dr: Zee Denise MD Date: 08/24/17 Location: ED Sex: F C Admitted: Test Reason : SOB Blood Pressure : / mmHG Vent. Rate : 093 BPM Atrial Rate : 093 BPM P-R Int : 178 ms QRS Dur : 084 ms QT Int : 374 ms P-R-T Axes : 020 -21 047 degrees QTc Int : 465 ms Normal sinus rhythm Normal ECG Confirmed by SOLEDAD STREETER, MAURILIO ([id number]), dictionary editor STACY CARTER ([id number]) on 08/27/2017 10:37:34 AM Referred By: EITAN Confirmed By:MAURILIO ROWE MD 08/27/17 1037 Date Maurilio Rowe MD CC: Doris Navarro DO Signed EMERGENCY DEPARTMENT Observed: 08/25/2017 Status: F Source: [place] SUMMARY 12:01 AM [facility] Medical Records Department [address] [place] [address] Emergency Department Summary 08/24/17 1709 MR#: [id number] Acct: [id number] Name: MARICRUZ GRIGSBY Stuart Rep #: [id number] : 1940 77 From: Zee Denise MD PCP: Doris Navarro DO Status: DEP ER - ER Visit Summary Date of Service: 08/24/17 Chief Complaint: [] Runny nose harsh cough for almost 2 months History of Present Illness: The patient is a 77 F [] began early June she was thoroughly evaluated as an outpatient by her physicians she believes she was tested for the flu she has been on multiple antibiotics, she has persistence of a harsh dry cough, she was recently referred to Dr. Mullen of ENT who examined her told her she had upper respiratory infection, she is on antibiotic and a nasal spray, she also has a nebulizer machine she can use at home. She has no history of GA PE or DVT she does have history of prior stroke and a heart murmur. She is able lie flat she is able to walk no orthopnea. She simply states she has a persistence of this harsh cough she feels that has triggered her anxiety, she is taking all of her anxiety medications Physical Examination: [] Vital signs are within normal range she speaking full sentences she is in no distress her pulse ox is 98% on room air she does have a harsh dry cough here her nose is congested the throat is clear the lungs are clear the heart tones really unremarkable the abdomen soft obese but nontender upper lower extreme is unremarkable sinus clubbing or edema neurologically she is awake alert moving all 4 clinically she looks well Test Results: [] Emergency Department Course and Treatment: [] Patient bluntly told me that she feels the symptoms related to her anxiety she wants her anxiety medications adjusted I explained her we will do a screening examination to look for medical condition causing the coughing any adjustments to her anxiety medications need to be obtained by her primary care doctors EKG labs chest x-ray are all unremarkable [...] at home with the meds I have asked her to use that she insists that there is an issue with her anxiety and that net meds need to be adjusted and have asked her to discuss that with her primary care doctors and return for change in symptoms Treatment Plan: [] Disposition: [] Stable Impression: [] URI with harsh cough, history of anxiety, patient concerned her anxiety regimen should be altered This note was generated with [employer] dictation software. It may contain incorrect words, spelling, and punctuation that were not noted in review of the chart prior to signing ED Disposition - Plan for ED Patient: Chief Complaint: Shortness of Breath Referrals: Doris Navarro, DO [Primary Care Provider] - What to do if you have Problems For any increased pain, shortness of breath, bleeding, nausea or vomiting, chest pain, or any unexpected problems, contact your Primary Care Provider. Call [facility] ([phone]) or report to the closest Emergency Room. Call 911 if necessary. 08/25/17 0001 <Electronically signed by Zee Denise MD> Date Zee Denise MD Cosigner Signature (If Indicated): Date CC: Doris Navarro DO DISCHARGE INSTRUCTION Observed: 08/24/2017 Status: F Source: [place] 6:[address] [facility] REPOSITORY [facility] Medical Records Department [address] [place] [address] Discharge Instruction 08/24/17 182 MR#: [id number] Acct: [id number] Name: MARICRUZ GRIGSBY Rep #: [id number] : 1940 77 From: Zee Denise MD PCP: Doris Navarro DO Status: REG ER ED Disposition - Plan for ED Patient: Chief Complaint: Shortness of Breath Instructions: ED Reactive Airway Disease, ED Bronchitis Asthmatic, ED Upper Resp Infec No Abx Tx Referrals: Doris Navarro DO [Primary Care Provider] - What to do if you have Problems For any increased pain, shortness of breath, bleeding, nausea or vomiting, chest pain, or any unexpected problems, contact your Primary Care Provider. Call [facility] ([phone]) or report to the closest Emergency Room. Call 911 if necessary. 08/24/17 182 <Electronically signed by Zee Denise MD> Date Zee Denise MD Cosigner Signature (If Indicated): Date CC: Doris Navarro DO CBC W/DIFF, AUTOMATED Collected: 08/24/2017 Status: F Source: [place] 5:[address] [facility] REPOSITORY TYPE CODE TESTS RESULT OUT OF RANGE REFERENCE UNITS LAB L100.1000 4.4-11.0 K/mm3 Low WBC 4.1 LAB L100.1200 4.2-5.4 M/mm3 Normal RBC 4.78 LAB L100.1300 12.0-15.0 g/dl Normal HGB 13.6 LAB L100.1400 37-47 % Normal HCT 42.0 LAB L100.1500 81-99 fL Normal MCV 87.9 LAB L100.1600 27.0-32.0 pg Normal MCH 28.5 LAB L100.1700 32-36 g/gl Normal MCHC 32.4 LAB L100.1810 11.6-14.6 % High RDW CV 15.0 LAB L100.1820 35.1-43.9 fl High RDW SD 48.5 LAB L100.1900 150-450 K/mm3 Normal PLT 215 LAB L100.2000 6.2-12.0 fl Normal MPV 9.9 LAB L100.2100 47-70 % Normal NEUT% 47.1 LAB L100.2200 19-41 % Normal LY% 40.1 LAB L100.2300 0-10 % High MONO% 11.4 LAB L100.2400 0-5 % Normal EO% 1.0 LAB L100.2500 0-1 % Normal BASO% 0.2 LAB L100.2550 0.0-0.9 % Normal IM GRAN % 0.200 Result Comment: IG% - Immature Granulocytes (promyelocytes, myelocytes and metamyelocytes) > 1% indicates that a LEFT SHIFT is Present. LAB L100.2620 2.0-7.7 X10 3/uL Low Absolute Neut 1.9 LAB L100.2720 0.83-4.51 X10 3/ul Normal Absolute Lymph 1.65 Performed By: #### L100.0100 #### [facility] [address] [place], [address] BASIC METABOLIC Collected: 08/24/2017 Status: F Source: [place] PROFILE (BMP) 5:[address] [facility] REPOSITORY Order Comment: 'TROP' Serial specimen #1, #2, #3, or #4: 1 TYPE CODE TESTS RESULT OUT OF RANGE REFERENCE UNITS LAB L501.0100 70-110 mg/dL High GLU 178 Result Comment: Fasting Glucose result greater than or equal to 126 mg/dL suggests DIABETES MELLITUS per A.D.A. criteria. LAB L501.1000 7-18 mg/dL High BUN 30 LAB L501.1100 0.55-1.02 mg/dL High CREAT,SERUM 1.76 Result Comment: The validity of the calculated GFR AND GFRAA in patients over 70 years has not been determined. Clinical correlation is essential. LAB L501.1110 >60 mL/min Low EST GFR 30 Result Comment: Non- GFR Calc LAB L501.1115 >60 mL/min Low EST GFR - AA 36 Result Comment: GFR Calc LAB L501.1255 ml/min Normal Estimated CRCL 24.47 LAB L501.1300 10-20 RATIO Normal BUN/CRE 17.0 LAB L501.2200 8.5-10 mg/dL Normal .1 CA 9.3 LAB L501.5300 136-14 mmol/L Normal 5 NA 140 LAB L501.5600 3.5-5. mmol/L Normal 1 K 3.5 LAB L501.5900 98-107 mmol/L Normal CL 105 LAB L501.6100 21.0-3 mmol/L Normal 2.0 CO2 24.0 LAB L501.6200 5-15 Normal GAP 11 Performed By: #### L500.2500, L501.4010 #### [facility] [address] [place], [place], [address] TROPONIN-I Collected: 08/24/2017 Status: F Source: [place] 5:[address] [facility] REPOSITORY Order Comment: 'TROP' Serial specimen #1, #2, #3, or #4: 1 TYPE CODE TESTS RESULT OUT OF RANGE REFERENCE UNITS LAB L501.4010 <0.06 ng/mL Normal < 0.02 TROPONIN-I Result Comment: TROPONIN-I EXPECTED VALUES <0.05 NEGATIVE 0.06 - 0.59 AT RISK OF GA > OR = 0.60 SUGGEST GA Performed By: #### L500.2500, L501.4010 #### [facility] [address] [place], [address] BNP,B-TYPE NATRIURETIC Collected: 08/24/2017 Status: F Source: [place] 5:[address] [facility] REPOSITORY TYPE CODE TESTS RESULT OUT OF RANGE REFERENCE UNITS LAB L503.6620 0-100 pg/mL Normal B-TYPE 13.3 SANJU PEP Performed By: #### L503.6620 #### [facility] [address] [place], [address] CHEST PA AND LATERAL Observed: 08/24/2017 Status: F Source: [place] 5:[address] [facility] REPOSITORY [facility] Imaging Services [address] [place] [address] Chest PA and Lateral MR#: [id number] Acct: [id number] Name: MARICRUZ GRIGSBY Rep #: [id number] : 1940 F 77 From: Stacy Tapia MD PCP: Doris Navarro DO Status: REG ER Study: Chest PA and Lateral Date of Exam: 08/24/17 Exam# [id number] Ordering Dr: Zee Denise MD XR Chest 2 Views INDICATION: pt stated short of breath cough and fever COMPARISON: None TECHNIQUE: 2 views of the chest FINDINGS: The heart size is mildly enlarged. Pulmonary vascularity is within normal limits. Lungs are clear without evidence of airspace consolidation or pleural effusion. Osseous structures are grossly unremarkable. RAD/Chest PA and Lateral IMPRESSION: Cardiomegaly. Lungs appear clear. at 1849 Reported and signed by: Stacy Tapia MD Electronically Signed: Stacy Tapia MD at 17:47 EST Tel , Service support , CC: MD Sonam Denise; Doris Navarro DO Flumer: Signed PROGRESS Observed: 08/24/2017 Status: COMPLETED Source: [place] 4:49 PM [facility] [place] REPOSITORY HNO ID: [id number] Author: Deya To Service: (none) Author Type: Nurse Practitioner Type: Progress Notes Filed: 08/24/2017 4:54 PM Note Text: HPI Pt presents with c/o SOB. States has been sick with URI sx since 07/20/17. Was evaluated here at urgent care on 07/24/17 treated with prednisone and Bromfed for viral URI. Was prescribed a zpak on 08/02 which she completed. Sx continued to persist and she was evaluated on 08/[address] Jon. Rx for doxycycline and flonase. Has been taking as prescribed, however cough and SOB continue to worsen. Denies fever, chills. Review of Systems Constitutional: Negative for chills and fever. HENT: Positive for congestion. Respiratory: Positive for cough, sputum production, shortness of breath and wheezing. Cardiovascular: Negative for chest pain. Physical Exam Constitutional: She is oriented to person, place, and time. She appears distressed. HENT: Head: Normocephalic. Right Ear: Hearing, tympanic membrane, external ear and ear canal normal. Right ear perforated TM: PE tube present. Left Ear: Hearing, tympanic membrane, external ear and ear canal normal. Nose: Nose normal. Mouth/Throat: Uvula is midline, oropharynx is clear and moist and mucous membranes are normal. No oropharyngeal exudate. Eyes: Conjunctivae are normal. Pupils are equal, round, and reactive to light. Right eye exhibits no discharge. Left eye exhibits no discharge. Neck: Neck supple. Cardiovascular: Normal rate, regular rhythm and normal heart sounds. Pulmonary/Chest: Tachypnea noted. She is in respiratory distress. She has decreased breath sounds (decreased air movement throughout. pulse ox 93%. cannot speak in full sentances.). She has wheezes. She has rhonchi. She has no rales. She exhibits no tenderness. Lymphadenopathy: She has no cervical adenopathy. Neurological: She is alert and oriented to person, place, and time. Skin: Skin is warm. She is diaphoretic. 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 fluticasone (FLONASE) 50 mcg/actuation nasal spray Use 2 Sprays in each nostril once daily. busPIRone (BUSPAR) 10 mg tablet Take 10 mg by mouth twice daily. levothyroxine (SYNTHROID) 175 mcg tablet Take 175 mcg by mouth daily before breakfast. traZODone (DESYREL) 50 mg tablet Take 75 mg by mouth daily at bedtime. L-Methylfolate (L-METHYLFOLATE) 15 mg tab Take 1 tablet by mouth once daily. rosuvastatin (CRESTOR) 5 mg tablet Take 1 tablet by mouth daily at bedtime. hydrochlorothiazide (HYDRODIURIL, ESIDRIX) 25 mg tablet Take 25 mg by mouth once daily. OMEPRAZOLE (PRILOSEC ORAL) Take by mouth. citalopram (CELEXA) 40 mg tablet Take 40 mg by mouth once daily. Celecoxib (CELEBREX) 50 mg capsule Take 50 mg by mouth twice daily. losartan (COZAAR) 50 mg tablet Take 2 tablets by mouth once daily. amLODIPine 5 mg tablet Take 5 mg by mouth once daily. clopidogrel 75 mg tablet Take 1 tablet by mouth once daily. METFORMIN 500 MG TAB Take 2 tabs daily. lorazepam(ATIVAN 0.5 MG TAB) Take one(1) tablet every eight(8) hours as needed metoprolol succinate(TOPROL XL 100 MG 24 HR TAB) Take one(1) tablet daily. benzonatate (TESSALON PERLE) 100 mg capsule Take 2 capsules by mouth three times daily as needed for Cough. LEVOTHYROXINE 150 MCG TAB Take one tablet daily FAMILY HISTORY Problem Relation Age of Onset - Coronary Artery Disease Father [place] age 68 - Coronary Artery Disease Mother [place] age 70's - Diabetes mother, sister, mat aunt grndm - Stroke TIA's: mother, sister - Lipids Mother Social History Substance Use Topics - Smoking status: Never Smoker - Smokeless tobacco: Never Used - Alcohol use No ASSESSMENT/PLAN: 1. Respiratory distress - ICD9: 786.09, ICD10: R06.03 Referred to ED for further evaluation and management. Pt and refuse transfer via squad. will drive pt to [facility] now. The patient is in [facility] To CNP CNOV Observed: 08/24/2017 Status: COMPLETED Source: [place] 3:30 PM [facility] REPOSITORY Office Visit (WSTR) MARICRUZ GRIGSBY ([id number]) 1940 F Date Time Provider Department 08/24/17 3:30 PM [facility]YA TO [facility] During your visit today, we recorded the following information about you: Temperature Pulse Respiration Blood pressure 98.3 degrees 95/minute 28/minute 138/82 Weight 96.3 kg Deya To CNP 08/24/2017 4:54 PM Signed HPI Pt presents with c/o SOB. States has been sick with URI sx since 07/20/17. Was evaluated here at urgent care on 07/24/17 treated with prednisone and Bromfed for viral URI. Was prescribed a zpak on 08/02 which she completed. Sx continued to persist and she was evaluated on 08/[address] Jon. Rx for doxycycline and flonase. Has been taking as prescribed, however cough and SOB continue to worsen. Denies fever, chills. Review of Systems Constitutional: Negative for chills and fever. HENT: Positive for congestion. Respiratory: Positive for cough, sputum production, shortness of breath and wheezing. Cardiovascular: Negative for chest pain. Physical Exam Constitutional: She is oriented to person, place, and time. She appears distressed. HENT: Head: Normocephalic. Right Ear: Hearing, tympanic membrane, external ear and ear canal normal. Right ear perforated TM: PE tube present. Left Ear: Hearing, tympanic membrane, external ear and ear canal normal. Nose: Nose normal. Mouth/Throat: Uvula is midline, oropharynx is clear and moist and mucous membranes are normal. No oropharyngeal exudate. Eyes: Conjunctivae are normal. Pupils are equal, round, and reactive to light. Right eye exhibits no discharge. Left eye exhibits no discharge. Neck: Neck supple. Cardiovascular: Normal rate, regular rhythm and normal heart sounds. Pulmonary/Chest: Tachypnea noted. She is in respiratory distress. She has decreased breath sounds (decreased air movement throughout. pulse ox 93%. cannot speak in full sentances.). She has wheezes. She has rhonchi. She has no rales. She exhibits no tenderness. Lymphadenopathy: She has no cervical adenopathy. Neurological: She is alert and oriented to person, place, and time. Skin: Skin is warm. She is diaphoretic. 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 fluticasone (FLONASE) 50 mcg/actuation nasal spray Use 2 Sprays in each nostril once daily. busPIRone (BUSPAR) 10 mg tablet Take 10 mg by mouth twice daily. levothyroxine (SYNTHROID) 175 mcg tablet Take 175 mcg by mouth daily before breakfast. traZODone (DESYREL) 50 mg tablet Take 75 mg by mouth daily at bedtime. L-Methylfolate (L-METHYLFOLATE) 15 mg tab Take 1 tablet by mouth once daily. rosuvastatin (CRESTOR) 5 mg tablet Take 1 tablet by mouth daily at bedtime. hydrochlorothiazide (HYDRODIURIL, ESIDRIX) 25 mg tablet Take 25 mg by mouth once daily. OMEPRAZOLE (PRILOSEC ORAL) Take by mouth. citalopram (CELEXA) 40 mg tablet Take 40 mg by mouth once daily. Celecoxib (CELEBREX) 50 mg capsule Take 50 mg by mouth twice daily. losartan (COZAAR) 50 mg tablet Take 2 tablets by mouth once daily. amLODIPine 5 mg tablet Take 5 mg by mouth once daily. clopidogrel 75 mg tablet Take 1 tablet by mouth once daily. METFORMIN 500 MG TAB Take 2 tabs daily. lorazepam(ATIVAN 0.5 MG TAB) Take one(1) tablet every eight(8) hours as needed metoprolol succinate(TOPROL XL 100 MG 24 HR TAB) Take one(1) tablet daily. benzonatate (TESSALON PERLE) 100 mg capsule Take 2 capsules by mouth three times daily as needed for Cough. LEVOTHYROXINE 150 MCG TAB Take one tablet daily FAMILY HISTORY Problem Relation Age of Onset - Coronary Artery Disease Father [place] age 68 - Coronary Artery Disease Mother [place] age 70's - Diabetes mother, sister, mat aunt grndm - Stroke TIA's: mother, sister - Lipids Mother Social History Substance Use Topics - Smoking status: Never Smoker - Smokeless tobacco: Never Used - Alcohol use No ASSESSMENT/PLAN: 1. Respiratory distress - ICD9: 786.09, ICD10: R06.03 Referred to ED for further evaluation and management. Pt and refuse transfer via squad. will drive pt to [facility] now. The patient is in [facility] Referring Provider: SELF [[id number]] Allergies As of Date: 08/24/2017 Noted Allergy Reaction CEPHALOSPORINS 02/24/2010 PENICILLINS 02/24/2010 Date Reviewed: 08/24/2017 Reviewed by: Anjelica Estes Ma - Fully Assessed Reason for Visit: Nasal Congestion [235] Shortness of Breath [227] Primary Visit Diagnosis:Respiratory distress [R06.03] Prescriptions as of 08/24/2017 Sig: DOXYCYCLINE MONOHYDRATE 100 M* Take 1 capsule by mouth twice* FLUTICASONE 50 MCG/ACTUATION * Use 2 Sprays in each nostril * BUSPIRONE 10 MG TABLET Take 10 mg by mouth twice kip* LEVOTHYROXINE 175 MCG TABLET Take 175 mcg by mouth daily b* TRAZODONE 50 MG TABLET Take 75 mg by mouth daily at * LEVOMEFOLATE CALCIUM 15 MG TA* Take 1 tablet by mouth once d* ROSUVASTATIN 5 MG TABLET Take 1 tablet by mouth daily * HYDROCHLOROTHIAZIDE 25 MG TAB* Take 25 mg by mouth once chris* PRILOSEC ORAL Take by mouth. CITALOPRAM 40 MG TABLET Take 40 mg by mouth once chris* CELECOXIB 50 MG CAPSULE Take 50 mg by mouth twice kip* LOSARTAN 50 MG TABLET Take 2 tablets by mouth once * AMLODIPINE 5 MG TABLET Take 5 mg by mouth once daily. CLOPIDOGREL 75 MG TABLET Take 1 tablet by mouth once d* * METFORMIN 500 MG TABLET Take 2 tabs daily. * ATIVAN 0.5 MG TABLET Take one(1) tablet every eigh* * TOPROL XL 100 MG TABLET,EXTEN* Take one(1) tablet daily. BENZONATATE 100 MG CAPSULE Take 2 capsules by mouth thre* * LEVOTHYROXINE 150 MCG TABLET Take one tablet daily Medication notes this encounter BENZONATATE 100 MG CAPSULE >> Anjelica Estes Ma 08/24/2017 3:50 PM >> ANJELICA ESTES MA Aug 24, 2017 3:50 PM Therapy complete. Problem List As Of Date 08/24/2017 Noted Resolved Pancreatitis, Acute [K85.90] INVALID FOR* Basilar artery stenosis [I65.1] INVALID FOR* Stroke [I63.9] INVALID FOR* HTN (hypertension) [I10] INVALID FOR* Hyperlipidemia [E78.5] INVALID FOR* Diabetes mellitus [E11.9] INVALID FOR* Hyperlipidemia LDL goal <70 [E78.5] INVALID FOR* Encounter Status:Closed by DEYA TO CNP on 08/24/17 CHEST PA AND LATERAL Observed: 08/07/2017 Status: F Source: [place] 1:[address] [facility] REPOSITORY [facility] Imaging [place] [address] Chest PA and Lateral MR#: [id number] Acct: [id number] Name: MARICRUZ GRIGSBY Rep #: [id number] : 1940 F 77 From: Teo Garrido MD PCP: Doris Navarro DO Status: REG CLI Study: Chest PA and Lateral Date of Exam: 08/07/17 Exam# [id number] Ordering Dr: Doris Navarro DO STUDY: X-RAY CHEST REASON FOR EXAM: Female, 77 years old. Abnormal lung sounds. TECHNIQUE: PA and lateral views of the chest. COMPARISON: Comparison is made with prior study dated July 20, 2016. FINDINGS: Stable elevation of the right hemidiaphragm. Scattered bilateral calcified granulomas. No acute infiltration is seen. There is no demonstrated pleural abnormality. There is mild cardiac enlargement. Normal mediastinum and pete. Normal visualized pulmonary arteries. There is atherosclerotic calcification of the aortic arch with tortuosity. There are diffuse degenerative changes of the visualized thoracic spine. Mild levoscoliosis. Multiple healed right rib fractures. There is no demonstrated abnormality of the visualized soft tissue structures of the upper abdomen. RAD/Chest PA and Lateral IMPRESSION: No acute abnormality is seen. Stable examination. Electronically Signed: Teo Garrido MD at 13:49 EST Tel [phone], Service support , CC: Doris Navarro DO Flumer: Signed PROGRESS Observed: 07/24/2017 Status: COMPLETED Source: [place] 2:00 PM [facility] REPOSITORY HNO ID: [id number] Author: Carolina Obrien (Robbin) IVAN Cheung Service: (none) Author Type: Nurse Practitioner Type: Progress Notes Filed: 07/24/2017 2:09 PM Note Text: HPI Patient presents with: cough and chest congestion: x 3 days-also feels very tired here today ill with same symptoms. Denies any otc treatment for symptoms. Denies hx of asthma, bronchitis, pneumonia or smoking. Review of Systems Constitutional: Positive for malaise/fatigue. Negative for chills and fever. HENT: Positive for congestion and sore throat. Negative for ear pain. Eyes: Negative for discharge and redness. Respiratory: Positive for cough. Negative for hemoptysis, sputum production, shortness of breath and wheezing. Gastrointestinal: Negative for abdominal pain, diarrhea, nausea and vomiting. Skin: Negative for rash. Neurological: Negative for headaches. All other systems reviewed and are negative. PAST MEDICAL HISTORY Diagnosis Date - Arthropathy, unspecified, site unspecified Other arthropathies - Basilar artery stenosis with infarction (HCC) 05/17/12 R [place] - Diabetes (HCC) - Hyperlipidemia - Hypertension - Hyperthyroidism - Obesity PAST SURGICAL HISTORY Procedure Laterality Date - APPENDECTOMY - HYSTERECTOMY HX Partial - LAP CHOLECYSTECT/CHOLANGIOGRAPHY 03/02/10 Normal IOC - REVISE MEDIAN N/CARPAL TUNNEL SURG Carpal tunnel decomp, rt, age 48 - THYROIDECTOMY - TONSILLECTOMY HX ALLERGIES Cephalosporins; Penicillins MEDICATIONS busPIRone (BUSPAR) 10 mg tablet Take 10 mg by mouth twice daily. levothyroxine (SYNTHROID) 175 mcg tablet Take 175 mcg by mouth daily before breakfast. traZODone (DESYREL) 50 mg tablet Take 75 mg by mouth daily at bedtime. L-Methylfolate (L-METHYLFOLATE) 15 mg tab Take 1 tablet by mouth once daily. benzonatate (TESSALON PERLE) 100 mg capsule Take 2 capsules by mouth three times daily as needed for Cough. rosuvastatin (CRESTOR) 5 mg tablet Take 1 tablet by mouth daily at bedtime. hydrochlorothiazide (HYDRODIURIL, ESIDRIX) 25 mg tablet Take 25 mg by mouth once daily. OMEPRAZOLE (PRILOSEC ORAL) Take by mouth. citalopram (CELEXA) 40 mg tablet Take 40 mg by mouth once daily. Celecoxib (CELEBREX) 50 mg capsule Take 50 mg by mouth twice daily. losartan (COZAAR) 50 mg tablet Take 2 tablets by mouth once daily. amLODIPine 5 mg tablet Take 5 mg by mouth once daily. clopidogrel 75 mg tablet Take 1 tablet by mouth once daily. METFORMIN 500 MG TAB Take 2 tabs daily. lorazepam(ATIVAN 0.5 MG TAB) Take one(1) tablet every eight(8) hours as needed metoprolol succinate(TOPROL XL 100 MG 24 HR TAB) Take one(1) tablet daily. Lfsqcvwmruchldu-Ulxhjsbfq-VG (BROMFED DM) 2-30-10 mg/5 mL syrup Take 10 mL by mouth four times daily as needed for up to 7 days. predniSONE (DELTASONE) 20 mg tablet Take 2 tablets by mouth once daily for 5 days. Take daily with food. LEVOTHYROXINE 150 MCG TAB Take one tablet daily FAMILY HISTORY Problem Relation Age of Onset - Coronary Artery Disease Father [place] age 68 - Coronary Artery Disease Mother [place] age 70's - Diabetes mother, sister, mat aunt grndm - Stroke TIA's: mother, sister - Lipids Mother Social History Substance Use Topics - Smoking status: Never Smoker - Smokeless tobacco: Never Used - Alcohol use No Physical Exam Constitutional: She is well-developed, well-nourished, and in no distress. HENT: Head: Normocephalic. Right Ear: Tympanic membrane, external ear and ear canal normal. Left Ear: Tympanic membrane, external ear and ear canal normal. Nose: Rhinorrhea present. Right sinus exhibits no maxillary sinus tenderness and no frontal sinus tenderness. Left sinus exhibits no maxillary sinus tenderness and no frontal sinus tenderness. Mouth/Throat: Posterior oropharyngeal erythema (PND) present. Eyes: Conjunctivae are normal. Neck: Normal range of motion. Neck supple. Cardiovascular: Normal rate, regular rhythm and normal heart sounds. Pulmonary/Chest: Effort normal and breath sounds normal. No respiratory distress. She has no wheezes. Abdominal: Soft. She exhibits no distension. There is no tenderness. Lymphadenopathy: She has no cervical adenopathy. Skin: Skin is warm and dry. No rash noted. Nursing note and vitals reviewed. ASSESSMENT/PLAN: 1. Viral URI with cough - ICD9: 465.9, ICD10: J06.9, B97.89 - Discussed viral etiology and rationale for treatment. - Symptomatic treatment with prn analgesia - Supportive care with fluids and rest - The patient may also use OTC decongestants prn, OTC cough and cold meds as needed, warm salt water gargles, throat lozenges and/or OTC throat spray as needed and nasal saline gtts and suction prn. - Follow up in 3-5 days if symptoms persist or sooner if worsening of symptoms Prescription instructions reviewed with patient as applicable. Patient advised if symptoms do not improve or if symptoms worsen sooner, to contact their primary care physician. Potential red flag symptoms discussed with the patient. Reviewed appropriate action plan to take if red flag symptoms occur. Patient agreeable to treatment plan. Carolina Cheung CNP CNOV Observed: 07/24/2017 Status: COMPLETED Source: [place] 1:15 PM [facility] REPOSITORY Office Visit (WSTR) MARICRUZ GRIGSBY ([id number]) 1940 F Date Time Provider Department 07/24/17 1:15 PM CAROLINA CHEUNG (CABLE FERRYBOAT OPERATOR) WSTR During your visit today, we recorded the following information about you: Temperature Pulse Respiration Blood pressure 98.1 degrees 80/minute 20/minute 128/76 Weight 101.9 kg Carolina Cheung CNP, CNP 07/24/2017 2:09 PM Signed HPI Patient presents with: cough and chest congestion: x 3 days-also feels very tired here today ill with same symptoms. Denies any otc treatment for symptoms. Denies hx of asthma, bronchitis, pneumonia or smoking. Review of Systems Constitutional: Positive for malaise/fatigue. Negative for chills and fever. HENT: Positive for congestion and sore throat. Negative for ear pain. Eyes: Negative for discharge and redness. Respiratory: Positive for cough. Negative for hemoptysis, sputum production, shortness of breath and wheezing. Gastrointestinal: Negative for abdominal pain, diarrhea, nausea and vomiting. Skin: Negative for rash. Neurological: Negative for headaches. All other systems reviewed and are negative. PAST MEDICAL HISTORY Diagnosis Date - Arthropathy, unspecified, site unspecified Other arthropathies - Basilar artery stenosis with infarction (HCC) 05/17/12 R [place] - Diabetes (HCC) - Hyperlipidemia - Hypertension - Hyperthyroidism - Obesity PAST SURGICAL HISTORY Procedure Laterality Date - APPENDECTOMY - HYSTERECTOMY HX Partial - LAP CHOLECYSTECT/CHOLANGIOGRAPHY 03/02/10 Normal IOC - REVISE MEDIAN N/CARPAL TUNNEL SURG Carpal tunnel decomp, rt, age 48 - THYROIDECTOMY - TONSILLECTOMY HX ALLERGIES Cephalosporins; Penicillins MEDICATIONS busPIRone (BUSPAR) 10 mg tablet Take 10 mg by mouth twice daily. levothyroxine (SYNTHROID) 175 mcg tablet Take 175 mcg by mouth daily before breakfast. traZODone (DESYREL) 50 mg tablet Take 75 mg by mouth daily at bedtime. L-Methylfolate (L-METHYLFOLATE) 15 mg tab Take 1 tablet by mouth once daily. benzonatate (TESSALON PERLE) 100 mg capsule Take 2 capsules by mouth three times daily as needed for Cough. rosuvastatin (CRESTOR) 5 mg tablet Take 1 tablet by mouth daily at bedtime. hydrochlorothiazide (HYDRODIURIL, ESIDRIX) 25 mg tablet Take 25 mg by mouth once daily. OMEPRAZOLE (PRILOSEC ORAL) Take by mouth. citalopram (CELEXA) 40 mg tablet Take 40 mg by mouth once daily. Celecoxib (CELEBREX) 50 mg capsule Take 50 mg by mouth twice daily. losartan (COZAAR) 50 mg tablet Take 2 tablets by mouth once daily. amLODIPine 5 mg tablet Take 5 mg by mouth once daily. clopidogrel 75 mg tablet Take 1 tablet by mouth once daily. METFORMIN 500 MG TAB Take 2 tabs daily. lorazepam(ATIVAN 0.5 MG TAB) Take one(1) tablet every eight(8) hours as needed metoprolol succinate(TOPROL XL 100 MG 24 HR TAB) Take one(1) tablet daily. Lihexnvrxwwldxn-Bjhistfti-VF (BROMFED DM) 2-30-10 mg/5 mL syrup Take 10 mL by mouth four times daily as needed for up to 7 days. predniSONE (DELTASONE) 20 mg tablet Take 2 tablets by mouth once daily for 5 days. Take daily with food. LEVOTHYROXINE 150 MCG TAB Take one tablet daily FAMILY HISTORY Problem Relation Age of Onset - Coronary Artery Disease Father [place] age 68 - Coronary Artery Disease Mother [place] age 70's - Diabetes mother, sister, mat aunt grndm - Stroke TIA's: mother, sister - Lipids Mother Social History Substance Use Topics - Smoking status: Never Smoker - Smokeless tobacco: Never Used - Alcohol use No Physical Exam Constitutional: She is well-developed, well-nourished, and in no distress. HENT: Head: Normocephalic. Right Ear: Tympanic membrane, external ear and ear canal normal. Left Ear: Tympanic membrane, external ear and ear canal normal. Nose: Rhinorrhea present. Right sinus exhibits no maxillary sinus tenderness and no frontal sinus tenderness. Left sinus exhibits no maxillary sinus tenderness and no frontal sinus tenderness. Mouth/Throat: Posterior oropharyngeal erythema (PND) present. Eyes: Conjunctivae are normal. Neck: Normal range of motion. Neck supple. Cardiovascular: Normal rate, regular rhythm and normal heart sounds. Pulmonary/Chest: Effort normal and breath sounds normal. No respiratory distress. She has no wheezes. Abdominal: Soft. She exhibits no distension. There is no tenderness. Lymphadenopathy: She has no cervical adenopathy. Skin: Skin is warm and dry. No rash noted. Nursing note and vitals reviewed. ASSESSMENT/PLAN: 1. Viral URI with cough - ICD9: 465.9, ICD10: J06.9, B97.89 - Discussed viral etiology and rationale for treatment. - Symptomatic treatment with prn analgesia - Supportive care with fluids and rest - The patient may also use OTC decongestants prn, OTC cough and cold meds as needed, warm salt water gargles, throat lozenges and/or OTC throat spray as needed and nasal saline gtts and suction prn. - Follow up in 3-5 days if symptoms persist or sooner if worsening of symptoms Prescription instructions reviewed with patient as applicable. Patient advised if symptoms do not improve or if symptoms worsen sooner, to contact their primary care physician. Potential red flag symptoms discussed with the patient. Reviewed appropriate action plan to take if red flag symptoms occur. Patient agreeable to treatment plan. Carolina Cheung CNP Referring Provider: SELF [200] Allergies As of Date: 07/24/2017 Noted Allergy Reaction CEPHALOSPORINS 02/24/2010 PENICILLINS 02/24/2010 Date Reviewed: 07/24/2017 Reviewed by: Jyothi Muñiz LPN - Fully Assessed Reason for Visit: cough and chest congestion [Other] Cmt: x 3 days-also feels very tired Primary Visit Diagnosis:Viral URI with cough [J06.9, B97.89] Order(s):Gfkxarlbexwwpes-Vlehqwfvk-MW (BROMFED DM) 2-30-10 mg/5 mL syrupTake 10 mL by mouth four times daily as needed for up to 7 days.Disp: 240 mLRfl: 0 predniSONE (DELTASONE) 20 mg tabletTake 2 tablets by mouth once daily for 5 days. Take daily with food.Disp: 10 tabletRfl: 0 Prescriptions as of 07/24/2017 Sig: BUSPIRONE 10 MG TABLET Take 10 mg by mouth twice kip* LEVOTHYROXINE 175 MCG TABLET Take 175 mcg by mouth daily b* TRAZODONE 50 MG TABLET Take 75 mg by mouth daily at * LEVOMEFOLATE CALCIUM 15 MG TA* Take 1 tablet by mouth once d* BENZONATATE 100 MG CAPSULE Take 2 capsules by mouth thre* ROSUVASTATIN 5 MG TABLET Take 1 tablet by mouth daily * HYDROCHLOROTHIAZIDE 25 MG TAB* Take 25 mg by mouth once chris* PRILOSEC ORAL Take by mouth. CITALOPRAM 40 MG TABLET Take 40 mg by mouth once chris* CELECOXIB 50 MG CAPSULE Take 50 mg by mouth twice kip* LOSARTAN 50 MG TABLET Take 2 tablets by mouth once * AMLODIPINE 5 MG TABLET Take 5 mg by mouth once daily. CLOPIDOGREL 75 MG TABLET Take 1 tablet by mouth once d* * METFORMIN 500 MG TABLET Take 2 tabs daily. * ATIVAN 0.5 MG TABLET Take one(1) tablet every eigh* * TOPROL XL 100 MG TABLET,EXTEN* Take one(1) tablet daily. BROMPHENIRAMINE-PSEUDOEPHEDRI* Take 10 mL by mouth four time* PREDNISONE 20 MG TABLET Take 2 tablets by mouth once * * LEVOTHYROXINE 150 MCG TABLET Take one tablet daily Problem List As Of Date 07/24/2017 Noted Resolved Pancreatitis, Acute [K85.90] INVALID FOR* Basilar artery stenosis [I65.1] INVALID FOR* Stroke [I63.9] INVALID FOR* HTN (hypertension) [I10] INVALID FOR* Hyperlipidemia [E78.5] INVALID FOR* Diabetes mellitus [E11.9] INVALID FOR* Hyperlipidemia LDL goal <70 [E78.5] INVALID FOR* Prescriptions ordered this encounter Disp Refills Start End [id number]-[id number]-CD 2* 240 * 0 07/24/2017 07/31/2017 Route: ORAL Sig: Take 10 mL by mouth four times daily as needed for up to 7 days. PREDNISONE 20 MG TABLET 10 t* 0 07/24/2017 07/29/2017 Route: ORAL Sig: Take 2 tablets by mouth once daily for 5 days. Take daily with food. Disposition: Return if symptoms worsen or fail to improve. Follow-up and Disposition History Recorded Encounter Status:Closed by CAROLINA CHEUNG on 07/24/17 ALLERGIES ALLERGIES DATE TYPE / CODE NAME / CODE REACTION SEVERITY SOURCE Drug Penicillins/[id number] Hives Unknown [place] 8 Allergy/753983391( 476(RXNORM) [facility]ly [facility] SN[facility] Repository Drug guaifenesin/[id number] Unknown Unknown [place] 8 Allergy/958489927( 724(RXNORM) [facility]ly [facility] Repository Drug naproxen/[id number] Hives Unknown [place] Allergy/070560072( (RXNORM) [facility]ly [facility] SN[facility] Hospital Repository Drug ketoprofen/[id number] Unknown Unknown [place] 8 Allergy/476808825( 94(RXNORM) [facility]ly [facility] Hospital Repository Drug loracarbef/[id number] Unknown Unknown [place] 8 Allergy/162143306( 67(RXNORM) [facility]ly [facility] SN[facility]) Hospital Repository Miscellaneous bee sting Unknown Unknown [place] 8 Allergy/774215722( [facility]ly [facility] SN[facility]) Hospital Repository Drug CEPHALOSPORINS [place] 0 Class/138414318([facility] OMED [facility]) [place] Repository Drug PENICILLINS [place] 0 Class/791517847([facility]MED [facility]) [place] Repository ENCOUNTERS ENCOUNTERS ADMIT/DISCHARGE ACCOUNT ADMITTING ENCOUNTER LOCATION SOURCE NUMBER CLASS 07/10/2018 [id number] Ambulatory Building:[facility] OHIP Practices Repository 06/27/2018 [id number] [facility] ing:PT Repository 06/24/2018 [id number] [facility] ing:HPRAD Repository 05/14/2018/05/14/20 [id number] [address] ing:ED Repository 02/10/2018 [id number] Ambulatory [facility] Hospital ing:LAB Repository 02/07/2018/02/08/20 [id number] Ambulatory BMSBuilding:W [place] [address] [place] [address] Repository 02/06/2018/02/08/20 [id number] [facility], Ambulatory [place] [facility] Hospital[facility] Hospital ing:PCURoom: Repository QNU194Yko: 1 02/06/2018 [id number] [facility], Ambulatory BMSBuilding:B [place] Daniel MS.[facility] Repository 02/06/2018 [id number] Ambulatory BMSBuilding:Adelaida Borjas MS.[facility] Repository 11/25/2017 [id number] Ambulatory [facility] Hospital ing:OPUS Repository 11/20/2017 [id number] Ambulatory [facility] Hospital ing:MASS Repository 11/12/2017/11/13/19 [id number] [address] ing:PT Repository 10/29/2017 [id number] Ambulatory [facility] Hospital ing:HPRAD Repository 08/24/2017/08/24/19 [id number] Emergency [address] Hospital ing:ED Repository 08/24/2017/08/24/19 [id number] Ambulatory [address] Repository 08/07/2017 [id number] Ambulatory [facility] Hospitalild Hospital ing:HPRAD Repository 07/24/2017/07/24/20 [id number] Ambulatory [address] Repository FUNCTIONAL STATUS FUNCTIONAL STATUS No Functional Status Records FoundEQUIPMENT EQUIPMENT No Equipment Records FoundPAYERS PAYERS ENCOUNTER GUARANTOR PAYER SUBSCRIBER SOURCE 07/10/2018 Maricruz Davidson Primary Maricruz Davidson OHIP Practices [facility] Insurance:MedicarePol Formerly [facility] Repository B: icy Number: B: [id number] Guyanese Date:2843-44-85Odrh 0 [place], [place] Name:[facility] [place] [address]Sjk: [phone], [place] [address]Uok: [id number]: (HP) (HP) [phone] () 07/10/2018 Secondary Frantz MICHELLE Practices Insurance:Medical CurrenDOB: Repository [facility] [id number] Number: [id number]W[place], [place] Date: - [address]Haf: [phone] [id number] [phone] () Name:[facility] Charli [address] [place] [address] [id number]: 06/27/2018 FRANTZ E Primary MARICRUZ Borjas [id number] Insurance:MEDICARE CURRENDOB: [facility] [id number] Number: Repository [id number]: [phone]) [id number] [phone] () Date:2018-06-24 06/27/2018 Secondary NOT GIVENUNK [place] Insurance:SELF PAY [facility] Number: Effective Repository Date:2018-06-24 06/24/2018 FRANTZ E Primary MARICRUZ Borjas [id number] Insurance:MEDICARE CURRENDOB: [facility] PART A [facility] [id number] Number: Repository [id number]: [phone] [id number] [phone] () Date:2018-06-24 06/24/2018 Secondary NOT GIVENUNK [place] Insurance:SELF PAY [facility] Number: Effective Repository Date:2018-06-24 05/14/2018 FRANTZ E Primary MARICRUZ Borjas [id number] Insurance:MEDICARE CURRENDOB: [facility] PART A [facility] [id number] Number: Repository [id number]: [phone] [id number] [phone] (HP) Date:2018-05-14 05/14/2018 Secondary NOT GIVENUNK [place] Insurance:SELF PAY [facility]: Effective Repository Date:2018-05-14 02/10/2018 FRANTZ Poe Primary MARICRUZ Borjas [id number] Insurance:MEDICARE CURRENDOB: Community [facility] [facility] [id number] [place] Number: Repository [address]Cfw: 330 [id number] [phone] () Date:2018-02-10 02/10/2018 Secondary NOT GIVENUNK [place] Insurance:SELF PAY [facility] Number: Effective Repository Date:2018-02-10 02/07/2018 FRANTZ Poe Primary MARICRUZ Borjas [id number] Insurance:MEDICARE CURRENDOB: Community [address] PART A [facility] [id number] Number: Repository [address]Ihi: 330 [id number] [phone] () Date:2018-02-06 02/07/2018 Secondary NOT GIVENUNK [place] Insurance:SELF PAY [facility] Number: Effective Repository Date:2018-02-07 02/06/2018 FRANTZ Poe Primary MARICRUZ Borjas [id number] Insurance:MEDICARE CURRENDOB: Community [address] PART A [facility] [id number] Center of the [place] Number: Repository [address]Fgb: 330 [id number] [phone] () Date:2018-02-06 02/06/2018 Secondary NOT GIVENUNK [place] Insurance:SELF PAY [facility] Number: Effective Repository Date:2018-02-06 02/06/2018 FRANTZ Poe Primary MARICRUZ Borjas [id number] Insurance:MEDICARE CURRENDOB: Community [address] PART A [facility] [id number] Regional [facility] Number: Repository [address]Liy: 330 [id number] [phone] () Date:2018-02-06 02/06/2018 Secondary NOT GIVENUNK [place] Insurance:SELF PAY [facility] Number: Effective Repository Date:2018-02-06 02/06/2018 FRANTZ E Primary MARICRUZ Borjas [id number] Insurance:MEDICARE CURRENDOB: Community [address] PART A [facility] [id number] Regional [facility], [place] Number: Repository [address]Gfw: 330 [id number] [phone] (HP) Date:2018-02-06 02/06/2018 Secondary NOT GIVENUNK [place] Insurance:SELF PAY [facility] Hospital Number: Effective Repository Date:2018-02-06 11/25/2017 FRANTZ E Primary MARICRUZ Borjas [id number] Insurance:MEDICARE CURRENDOB: [facility] RUN PART A [facility] [id number] Regional [facility], [place] Number: Repository [address]Fuq: 330 [id number] [phone] (HP) Date:2017-11-22 11/25/2017 Secondary NOT GIVENUNK [place] Insurance:SELF PAY [facility] Number: Effective Repository Date:2017-11-22 11/20/2017 FRANTZ E Primary NOT GIVENUNK [place] [id number] Insurance:SELF PAY [facility] [place] Number: Effective Repository [phone]: (330) Date:2016-07-24 [facility]-1808 (HP) 11/12/2017 FRANTZ E Primary MARICRUZ Borjas [id number] Insurance:MEDICARE CURRENDOB: [facility] RUN PART A [facility] [id number] Regional [facility], [place] Number: Repository [address]Nqb: 330 [id number] [phone] (HP) Date:2006-01-26 11/12/2017 Secondary NOT GIVENUNK [place] Insurance:SELF PAY [facility] Number: Effective Repository Date:2017-11-01 10/29/2017 FRANTZ E Primary MARICRUZ [place] [id number] Insurance:MEDICARE CURRENDOB: [facility] RUN PART A [facility] [id number] Regional [facility], [place] Number: Repository [address]Fzr: 330 [id number] [phone] (HP) Date:2017-10-29 10/29/2017 Secondary NOT GIVENUNK [place] Insurance:SELF PAY [facility] Number: Effective Repository Date:2017-10-29 08/24/2017 Frantz Borjas [id number] Insurance:MEDICARE CURRENDOB: Community [place] PART A [facility] [id number] [facility], [place] Number: Repository [address]Oig: 330 [id number] [phone] () Date:2017-08-24 08/24/2017 Secondary NOT GIVENUNK [place] Insurance:SELF PAY [facility] Number: Effective Repository Date:2017-08-24 08/07/2017 Frantz Borjas [id number] Insurance:MEDICARE CURRENDOB: [facility] [place] PART A [facility] [id number] Number: Repository [address]Vix: 330 [id number] [phone] () Date:2017-08-07 08/07/2017 Secondary NOT GIVENUNK [place] Insurance:SELF PAY [facility] Number: Effective Repository Date:2017-08-07 SOCIAL HISTORY SOCIAL HISTORY No Social History Records FoundFAMILY HISTORY FAMILY HISTORY No Family History Records FoundADVANCE DIRECTIVES ADVANCE DIRECTIVES No Advanced Directives Records FoundINFORMATION SOURCE INFORMATION SOURCE DATE CREATED AUTHOR AUTHOR'S ORGANIZATION 07/15/2018 [place]
== END ==
PROVIDERS: Family Provider Internal Medicine; PCP Internal Medicine; Referring Provider Internal Medicine; Visit Provider Internal Medicine
DX: M54.31 Sciatica, right side (principal); M54.32 Sciatica, left side
CPT/HCPCS: 72110

== ENCOUNTER 2018-06-27 10:46 | Outpatient (RCR) | payer MEDICARE, BC, SELFPAY ==
--- NOTE | 2018-07-31 14:57 | HP.PTEVAL_ITS ---
Patient's Visit Information NITZA CRUZ is a 78 year old F referred to Physical Therapy by Doris Navarro DO with a diagnosis of Bilateral sciatica. Date of Evaluation: 06/27/18 Physical Therapist: Eugenio Correa DPT - Visit Plan Frequency: 2x /Week Duration: 4 Weeks Plan: Start with flexion based exercises, may use US to reduce symptoms. Include light TA contraction exercises as tolerated. I mentioned aquatic therapy to patient, but was not interested at this point in time. - Subjective Findings: Pt. is here today for her initial evaluation with diagnosis of Bilateral sciatica. Pt. reports having increased pain for ~5-6 weeks now, go down both of her legs. Pt. reports increased pain with standing, decreased pain with sitting. Pt. describes pain at lumbar spine and going down her legs, to the back of her knees. Pt. reports she has had these symptoms in the past, but alleviated wtih quickly. This time is not having the same progress. Pt. has not tiraled any exercises, but sits a lot to reduce pain. Pt. is hopeful to improve her symptoms in order to get back to all recreational and household activities without limitations. - Pain Lumbar spine Pain Intensity (Out of 10): 4 Pain Intensity Range: 2, 8 - Objective POSTURE: Pt. has flexed posture. Rounded shoulders, FH posture. Pt. has equal ilaic crest heights, no marked lateral shift. PALPATION: Pt. has increased tenderness along lumbar spine and into gluteal region. Mild increase in symptoms with spring testing in SL to L2-L5, hypomobility noted throughout. NEURO: normal sensation, normal DTR of bilateral LEs. Pt. is able to rise on heels and toes, but did require balance aide to complete. ROM: Flexion- min/mod loss NE, ext max loss increase NW, SB mod loss bilat increase NW bilaterally, rotation mod loss bilat increase NW. Pt. has tight HS bilaterally. MMT: RLE- ankle 5/5 throughout; knee- ext 4+/5, flexion 4+/5; hip- flexion 4-/5 increase NW, abd 4/5, ext 4/5. LLE-ankle 5/5 throughout; knee- ext 4+/5, flexion 4+/5; hip- flexion 4-/5 increase NW, abd 4/5, ext 4/5. Core strenth- poor. GAIT: Pt. ambulates without AD, she tends to hold onto things marcos, and PT to stabilize. She is able to ambulate without but reports that she preferes. I mention use of AD, but pt. declined. STAIRS: Pt. is able to neogotiate with step to pattern and heavy use of 2 HR, increase NW. - Goals Goal 1:: Pt. to be with HEP. Goal Time Frame: 4-6 Weeks Goal 2:: Pt. to have increased lumbar ROM withtout increase in symptoms by 25% throughout. Goal Time Frame: 4-6 Weeks Goal 3:: Pt. to walk without increase in symptoms. Goal Time Frame: 4-6 Weeks Goal 4:: Pt. to have increased BLE and core strength increased by 1/2 grade of all effected musculature. Goal Time Frame: 4-6 Weeks Goal 5:: Pt. to sleep throughout the night without increase in symptoms. Goal Time Frame: 4-6 Weeks - Rehabilitation Potential Physical Therapy Diagnosis: Pt. has signs and symptoms consistent with radiating back pain. It appears that she has lower lumbar stenosis from presentation. Pt. appears to have slight benefit from flexion based exercises. Pt. has a very sedentary lifestyle which allow for less postive outcome. Pt. would benefit from PT to increase her strength, ROM and decrease her symptoms. Rehabilitation Potential: Fair - Anticipated Interventions Patient/Client Instruction: Educate patient on: Condition, Plan of Care, Risk Factors, Benefits of Fitness Program For the Purpose of:: To improve decision making, To facilitate caregiver knowl edge, To improve self management, To prevent re-injury, To improve ability to perform tasks related to life management, To improve tolerance to ADL's Therapeutic Exercise to Include: Strength training, Power training, Endurance training, Postural training, Flexibilty training, Passive ROM, Active ROM, Dynamic Lumbar Stabilization For the Purpose of:: To decrease pain, To decrease swelling/inflammation, To increase ROM, To improve nutrient delivery to tissue, To increase oxygenation perfusion, To improve muscle performance and motor function, To improve ability to perform ADL's, To improve gait and locomotor functions, To improve health of tissue, To decrease soft tissue restriction, To increase flexibility/ROM Manual Therapy Techniques to Include: Mobilization, Functional dry needling, Soft tissue mobilization For the Purpose of:: To decrease pain, To decrease swelling/inflammation, To i ncrease ROM, To improve nutrient delivery to tissue IF ES: Yes Cryotherapy (ice pack, ice massage): Yes Thermo therapy (hot pack): Yes Ultrasound (thermal/non thermal): Yes For the Purpose of:: To decrease pain, To decrease swelling/inflammation, To increase ROM, To improve nutrient delivery to tissue Thank you for the opportunity to evaluate your patient. For Medicare and Medicare HMO plans, please review the plan of care and approve it. It will need to be FAXED BACK to us at [phone] for Medicare purposes. For Medicare only, by signing this I certify the plan of care. Please let me know if there are questions or concerns regarding this plan of care. Physician Signature: Date:
--- NOTE | 2018-07-31 14:58 | HP.PT.NRP ---
HP - Discharge Summary (1) - Patient Information NITZA CRUZ was seen in my office for initial evaluation on 06/27/18. The following Plan of Care was established for this patient: Initial Frequency: 2x /Week Initial Duration: 4 Weeks - Anticipated Interventions Patient/Client Instruction: Educate patient on: Condition, Plan of Care, Risk Factors, Benefits of Fitness Program For the Purpose of:: To improve decision making, To facilitate caregiver knowledge, To improve self management, To prevent re-injury, To improve ability to perform tasks related to life management, To improve tolerance to ADL's Therapeutic Exercise to Include: Strength training, Power training, Endurance training, Postural training, Flexibilty training, Passive ROM, Active ROM, Dynamic Lumbar Stabilization For the Purpose of:: To decrease pain, To decrease swelling/inflammation, To increase ROM, To improve nutrient delivery to tissue, To increase oxygenation perfusion, To improve muscle performance and motor function, To improve ability to perform ADL's, To improve gait and locomotor functions, To improve health of tissue, To decrease soft tissue restriction, To increase flexibility/ROM Manual Therapy Techniques to Include: Mobilization, Functional dry needling, Soft tissue mobilization For the Purpose of:: To decrease pain, To decrease swelling/inflammation, To increase ROM, To improve nutrient delivery to tissue IF ES: Yes Cryotherapy (ice pack, ice massage): Yes Thermo therapy (hot pack): Yes Ultrasound (thermal/non thermal): Yes For the Purpose of:: To decrease pain, To decrease swelling/inflammation, To increase ROM, To improve nutrient delivery to tissue This patient was last seen in our office 06/27/18. Pertinent comments regarding their Physical therapy will appear below: Pt. was seen for her initial evaluation for her bilateral sciatica. Pt. has not been seen since eval and will be DC from PT at this point in time. At this point I will be discontinuing this patient from physical therapy. I would be happy to see this patient again in the future if found appropriate by the physician. Thank you! CITLALI HayT
--- OUTSIDE RECORDS SUMMARY | 2018-08-22 08:18 | XMS RPT_ITS ---
:1940 Author Organization OHIP Support Name Relationship Address Phone MELANIE FRIEDMAN Unrelated Friend Unavailable + [place] [address] FABYFRANTZ THORNE [address] + [place] [address] R Unknown Unavailable Unavailable BONDALTON, MELANIE Unrelated Friend Unavailable + [place] [address] ANTHONY, FRANTZ [address] + [place] [address] R Unknown Unavailable Unavailable BONDALTON, MELANIE Unrelated Friend Unavailable + [place] [address] FRANTZ CRUZ [address] + [place] [address] R Unknown Unavailable Unavailable BONDALTON, MELANIE Unrelated Friend Unavailable + [place] [address] ANTHONY, FRANTZ [address] + [place] [address] R Unknown Unavailable Unavailable BONDALTON, MELANIE Unrelated Friend Unavailable + [place] [address] FRANTZ CRUZ [address] + [place] [address] R Unknown Unavailable Unavailable BONDALTON, MELANIE Unrelated Friend Unavailable + [place] [address] ANTHONY, FRANTZ [address] + [place] [address] R Unknown Unavailable Unavailable BONITZ, MELANIE Unrelated Friend Unavailable + [place] [address] ANTHONY, FRANTZ [address] + [place] [address] R Unknown Unavailable Unavailable BONDALTON, MELANIE Unrelated Friend Unavailable + [place] [address] FRANTZ CRUZ [address] + [place] [address] R Unknown Unavailable Unavailable BONITZ, MELANIE Unrelated Friend Unavailable + FRANTZ CRUZ [address] + [place] [address] R Unknown Unavailable Unavailable BONITZ, MELANIE Unrelated Friend Unavailable + FRANTZ CRUZ [address] + [place] [address] R Unknown Unavailable Unavailable BONITZ, MELANIE Unrelated Friend Unavailable + FRANTZ CRUZ [address] + [place] [address] R Unknown Unavailable Unavailable BONITZ, MELANIE Unrelated Friend Unavailable + FRANTZ CRUZ [address] + [place] [address] R Unknown Unavailable Unavailable BONDALTON, MELANIE Unrelated Friend . + ., . . FRANTZ CRUZ [address] + [place] [address] R Unknown Unavailable Unavailable BONDALTON, MELANIE Unrelated Friend . + ., . . FRANTZ CRUZ [address] + [place] [address] R Unknown Unavailable Unavailable Care Team Providers Name Role Phone Melanie DOTaliDoris Attending Unavailable Fast DO, Maggie A Referring Unavailable Melanie DO, Doris Consulting Unavailable DOCTOR, OUT OF TOWN Attending Unavailable Melanie, Doris Primary Care Unavailable Melanie, Doris Attending Unavailable Melanie, Doris Primary Care Unavailable Melanie, Doris Primary Care Unavailable Zee Denise Attending Unavailable Mleanie, Doris Primary Care Unavailable Thelma Sofia TIE BUCKER-C Attending Unavailable Thelma Sofia TIE BUCKER-C Referring Unavailable Melanie, Doris Attending Unavailable Melanie, [...] Unavailable Melanie, Doris Primary Care Unavailable [place], [place] Attending Unavailable Melanie, Doris Primary Care Unavailable Jwayyed, [place] Attending Unavailable Melanie, Odris Attending Unavailable Melanie, Doris Referring Unavailable Melanie, Doris Primary Care Unavailable Melanie, Doris Attending Unavailable Melanie, Doris Referring Unavailable Melanie, Doris Primary Care Unavailable Purpose Purpose PROBLEMS PROBLEMS DATE TYPE CONDITION / CODE ATTENDING STATUS SOURCE 05/14/2018 Unknown R52 - Pain, Jwayyed, Active [place] unspecified / [place] [facility] R52(ICD-10) Hospital Repository 02/27/2018 Unknown R74.8 - Abnormal Doris Navarro Active [place] levels of other [facility] serum enzymes / Hospital R74.8(ICD-10) Repository 05/08/2018 Unknown M25.552 - Pain in Doris Navarro Active [place] left hip / [facility] M25.552(ICD-10) Hospital Repository 08/07/2017 Unknown R09.89 - Other Doris Navarro Active [place] specified Community symptoms and Hospital signs involving Repository the circulatory and respiratory systems / R09.89(ICD-10) PROCEDURES PROCEDURES No Procedure Records FoundVITAL SIGNS VITAL SIGNS No Vital Signs Records FoundRESULTS RESULTS L/S SPINE MIN 4 Observed: 06/24/2018 Status: F Source: [place] VIEWS 2:13 PM [facility] REPOSITORY [facility] Imaging Services [address] [place] [address] L/S Spine Min 4 Views MR#: [id number] Acct: [id number] Name: MARICRUZ GRIGSBY Rep #: [id number] : 1940 F 78 From: Mack Soni MD PCP: Doris Navarro DO Status: REG CLI Study: L/S Spine Min 4 Views Date of Exam: 06/24/18 Exam# [id number] Ordering Dr: Doris Navarro DO STUDY: X-RAY [...] Service support , CC: Doris Navarro DO Mathematics Lecturer: Signed EMERGENCY DEPARTMENT Observed: 05/14/2018 Status: F Source: [place] SUMMARY 3:30 PM [facility] Medical Records Department [address] [place] [address] Emergency Department Summary 05/14/18 0908 MR#: [id number] Acct: [id number] Name: MARICRUZ GRIGSBY Rep #: [id number] : 1940 78 From: Zee Denise MD [...] her family doctors she is referred to [facility] for the shoulder injury and she will return for change in symptoms and she is comfortable with this plan Treatment Plan: [] Disposition: [] Stable home Impression: [] Fall left rib fracture, left shoulder injury This note was generated with Digitwhiz dictation software. It may contain incorrect words, [...] your Primary Care Provider. Call [facility] ([phone]) or report to the closest Emergency Room. Call 911 if necessary. 05/14/18 1530 <Electronically signed by Zee eDnise MD> Date Zee Denise MD Cosigner Signature (If Indicated): Date CC: Doris Navarro DO DISCHARGE INSTRUCTION Observed: 05/14/2018 Status: F Source: [place] 11:34 AM [facility] Medical Records Department [address] [place] [address] Discharge Instruction 05/14/18 1133 MR#: [id number] Acct: [id number] Name: CLIFFORD CRUZMARICRUZ L Rep #: [id number] : 1940 78 From: Zee Denise MD PCP: Doris Navarro DO Status: REG ER ED Disposition - Plan for ED Patient: Chief Complaint: Fall Instructions: ED Mechanical Fall, ED Fx Rib, ED Sprain Shoulder, ED Sling Prescriptions: Hydrocodone Bitart/Apap 5-325 [[place] 5MG-325MG] 1 tab PO Q6H PRN PRN 3 Days #10 tab PRN Reason: Pain Referrals: Doris Navarro DO [Primary Care Provider] - What to do if you have Problems For any increased pain, shortness of breath, bleeding, nausea or vomiting, chest pain, or any unexpected problems, contact your Primary Care Provider. Call [facility] ([phone]) or report to the closest Emergency Room. Call 911 if necessary. 05/14/18 1134 <Electronically signed by Zee Denise MD> Date Zee Denise MD Cosigner Signature (If Indicated): Date CC: Doris Navarro DO CHEST PA AND LATERAL Observed: 05/14/2018 Status: F Source: [place] 8:58 AM [facility] Imaging Services [address] [place] [address] Chest PA and Lateral MR#: [id number] Acct: [id number] Name: MARICRUZ GRIGSBY Rep #: [id number] : 1940 F 78 From: Teo Garrido MD PCP: Doris Navarro DO Status: REG ER Study: Chest PA and Lateral Date of Exam: 05/14/18 Exam# [id number] Ordering Dr: Zee Denise MD STUDY: X-RAY [...] Teo Garrido MD at 10:11 EDT Tel [phone], Service support , CC: MD Sonam Denise; Doris Navarro DO Mathematics Lecturer: Signed ELBOW MIN 3 VIEWS Observed: 05/14/2018 Status: F Source: [place] 8:58 AM [facility] REPOSITORY [facility] Imaging Services [address] [place] [address] Elbow min 3 Views MR#: [id number] Acct: [id number] Name: MARICRUZ GRIGSBY Rep #: [id number] : 1940 F 78 From: Teo Garrido MD PCP: Doris Navarro DO Status: REG ER Study: Elbow min 3 Views Date of Exam: 05/14/18 Exam# [id number] Ordering Dr: Zee Denise MD STUDY: X-RAY [...] Teo Garrido MD at 10:12 EDT Tel [phone], Service support , CC: MD Sonam Denise; Doris Navarro DO Mathematics Lecturer: Signed SHOULDER MIN 2 VIEWS Observed: 05/14/2018 Status: F Source: [place] 8:58 AM [facility] Imaging Services [address] [place] [address] Shoulder min 2 Views MR#: [id number] Acct: [id number] Name: MARICRUZ GRIGSBY Rep #: [id number] : 1940 F 78 From: Teo Garrido MD PCP: Doris Navarro DO Status: REG ER Study: Shoulder min 2 Views Date of Exam: 05/14/18 Exam# [id number] Ordering Dr: Zee Denise MD STUDY: X-RAY [...] Teo Garrido MD at 11:02 EDT Tel [phone], Service support , CC: MD Sonam Denise; Doris Navarro DO Mathematics Lecturer: Signed 12 LEAD ELECTROCARDIOGRAM Observed: 2018 Status: F Source: [place] 2:13 PM [facility] Cardiovascular Services [address] [place] [address] 12 Lead EKG 02/06/18 1825 MR#: [id number] Acct: [id number] Name: MARICRUZ GRIGSBY Rep #: [id number] : 1940 77 From: Jason Barth MD Attending Dr: Lance Messina DO Status: DIS DEEPAK Ordering Dr: Jered Marte MD Date: 02/06/18 Location: [facility] Sex: F C Admitted: 02/06/18 Test Reason : HEADACHE Blood Pressure : / mmHG Vent. Rate : 064 BPM Atrial Rate : 064 BPM P-R Int : 204 ms QRS Dur : 088 ms QT Int : 410 ms P-R-T Axes : 040 -23 071 degrees QTc Int : 422 ms Normal sinus rhythm Normal ECG Confirmed by JASON BARTH MD ([id number]), video news editor STACY CARTER ([id number]) on 2018 2:12:44 PM Referred By: RON Confirmed By:JASON BARTH MD 02/11/18 1412 Date Jason Barth MD CC: Doris Navarro DO; Lance Messina DO; Jered Marte Signed LIVER PROFILE Collected: 02/10/2018 Status: F Source: [place] 8:44 AM [facility] Order Comment: Comments: ANTI-LIVER/KIDNEY MICRO AB [id number] SER/RF TYPE CODE TESTS RESULT OUT OF [...] BILI 0.17 Performed By: #### L500.3400, L501.5100, L501.76227, L501.9520, L503.6550, L506.0400 #### [place] [facility] [address] [place], [address] GGTP Collected: 02/10/2018 Status: F Source: [place] 8:44 AM [facility] Order Comment: Comments: ANTI-LIVER/KIDNEY MICRO AB [id number] SER/RF TYPE CODE TESTS RESULT OUT OF RANGE REFERENCE UNITS LAB L501.5100 5-55 U/L High GGTP 64 Performed By: #### L500.3400, L501.5100, L501.68544, L501.9520, L503.6550, L506.0400 #### [facility] [address] [place], [address] FREE T3 Collected: 02/10/2018 Status: F Source: [place] 8:44 AM [facility] Order Comment: Comments: ANTI-LIVER/KIDNEY MICRO AB [id number] SER/RF TYPE CODE TESTS RESULT OUT OF RANGE REFERENCE UNITS LAB L501.35669 2.18-3.98 pg/mL Low FREE T3 1.6 Performed By: #### L500.3400, L501.5100, L501.30062, L501.9520, L503.6550, L506.0400 #### [facility] [address] [place], [address] THYROID STIM HORMONE Collected: 02/10/2018 Status: F Source: [place] (TSH) 8:44 AM [facility] Order Comment: Comments: ANTI-LIVER/KIDNEY MICRO AB [id number] SER/RF TYPE CODE TESTS RESULT OUT OF RANGE REFERENCE UNITS LAB L501.9520 0.358-3.74 uIU/mL High TSH 16.40 Performed By: #### L500.3400, L501.5100, L501.76459, L501.9520, L503.6550, L506.0400 #### [facility] [address] [place], [address] FERRITIN Collected: 02/10/2018 Status: F Source: [place] 8:44 AM [facility] Order Comment: Comments: ANTI-LIVER/KIDNEY MICRO AB [id number] SER/RF TYPE CODE TESTS RESULT OUT OF RANGE REFERENCE UNITS LAB L503.6550 8-252 ng/mL Normal FERRITIN 236 Performed By: #### L500.3400, L501.5100, L501.23545, L501.9520, L503.6550, L506.0400 #### [facility] [address] [facility] [place], [place], [address] T4 FREE DIRECT Collected: 02/10/2018 Status: F Source: [place] 8:44 AM [facility] Order Comment: Comments: ANTI-LIVER/KIDNEY MICRO AB [id number] SER/RF TYPE CODE TESTS RESULT OUT OF RANGE REFERENCE UNITS LAB L506.0400 0.76-1.46 ng/dL Normal T4 FREE 1.06 DIRECT Performed By: #### L500.3400, L501.5100, L501.67576, L501.9520, L503.6550, L506.0400 #### [facility] [address] [facility] [place], [place], [address] ANTI-MITOCHONDRIAL AB Collected: Status: F Source: [place] 02/10/2018 8:44 AM [facility] TYPE CODE TESTS RESULT OUT OF [...] Status: F Source: [place] DIRECT 8:44 AM [facility] TYPE CODE TESTS RESULT OUT OF RANGE REFERENCE UNITS LAB L3100.5475 Negative Normal Negative [place]-DIRECT Result Comment: Performed at: - [facility] [id number] Product Engineer: Constantine Christianson PhD, Phone: [phone] Performed By: #### L800.1280, L3100.5475 #### [facility] (refer to report for specific site) refer to report for address and phone number ANTI-SMOOTH MUSCLE ABS Collected: 02/10/2018 Status: F Source: [place] 8:44 AM [facility] Order Comment: Comments: ANTI-LIVER/KIDNEY MICRO AB [id number] SER/RF TYPE CODE TESTS RESULT OUT OF [...] PANEL ACUTE Collected: 02/10/2018 Status: F Source: [place] 8:44 AM [facility] Order Comment: Comments: ANTI-LIVER/KIDNEY MICRO AB [id number] SER/RF TYPE CODE TESTS RESULT OUT OF RANGE REFERENCE UNITS LAB L3100.0200 Negative Normal HEP A Negative IgM 6734 LAB L3100.0400 Negative Normal HB Negative SURF AG LAB L3100.0440 Negative Normal HB Negative CORE [id number] LAB L3100.0650 0.0-0.9 s/co ratio Normal HEP C <0.1 AB Result Comment: Negative: < 0.8 Indeterminate: 0.8 - 0.9 Positive: > 0.9 The CDC recommends that a positive HCV antibody result be followed up with a HCV Nucleic Acid Amplification test (147086). Performed By: #### L803.2200, L3000.0375, L3400.0700, L3400.1500, L3400.3800 #### [facility] (refer to report for specific site) refer to report for address and phone number CERULOPLASMIN Collected: 02/10/2018 Status: F Source: [place] 8:44 AM [facility] Order Comment: Comments: ANTI-LIVER/KIDNEY MICRO AB [id number] SER/RF TYPE CODE TESTS RESULT OUT OF RANGE REFERENCE UNITS LAB L3400.0700 19.0-39.0 mg/dL Normal CERULOPLAS 1560 22.0 Performed By: #### L803.2200, L3000.0375, L3400.0700, L3400.1500, L3400.3800 #### [facility] (refer to report for specific site) refer to report for address and phone number CMV ACUTE ANTIBODY Collected: 02/10/2018 Status: F Source: [place] IGM 8:44 AM [facility] Order Comment: Comments: ANTI-LIVER/KIDNEY MICRO AB [id number] SER/RF TYPE CODE TESTS RESULT OUT OF [...] 02/10/2018 Status: F Source: [place] 8:44 AM [facility] Order Comment: Comments: ANTI-LIVER/KIDNEY MICRO AB [id number] SER/RF TYPE CODE TESTS RESULT OUT OF RANGE REFERENCE UNITS LAB L3400.3800 200-370 mg/dL Normal TRANSFERRN 4937 250 Result Comment: Performed at: [facility] [id number] Product Engineer: Constantine Christianson PhD, Phone: [phone] Performed By: #### L803.2200, L3000.0375, L3400.0700, L3400.1500, L3400.3800 #### [facility] (refer to report for specific site) refer to report for address and phone number MISCELLANEOUS LAB Collected: 02/10/2018 Status: F Source: [place] PROCEDURE 8:44 AM [facility] Order Comment: Comments: ANTI-LIVER/KIDNEY MICRO AB [id number] SER/RF Test(s) Ordered: ANTI-LIVER/KIDNEY MICROS AB [id number] SER/RF TYPE CODE TESTS RESULT OUT OF RANGE REFERENCE UNITS LAB L801.1541 Normal [facility] Result Comment: TEST RESULT UNITS REF INTERVAL Liver-Kidney Microsomal Ab <1.0 Units 0.0 - 20.0 Negative 0.0 - 20.0 Equivocal 20.1 - 24.9 Positive >24.9 LKM type 1 antibodies are detected in patients with autoimmune hepatitis type 2 and in up to 8% of patients with chronic HCV infection. TESTING PERFORMED AT [facility]. ORIGINAL REPORT ON FILE IN LAB CONTAINS ADDITIONAL TEST SITE INFORMATION. Performed By: #### L801.1541 #### [facility] [address] [facility] [place], [address] CAROTID DUPLEX Observed: 02/08/2018 Status: F Source: [place] ULTRASOUND 10:31 AM [facility] Cardiovascular Services [address] [place] [address] Carotid Duplex Ultrasound 02/07/18 0840 MR#: [id number] Acct: [id number] Name: MARICRUZ GRIGSBY Stuart Rep #: [id number] : 1940 77 From: Mehran Damon MD Attending Dr: Lance Messina DO Status: DIS DEEPAK Ordering Dr: María Barnes MD Date: 02/06/18 Location: [facility] Sex: F C Admitted: 02/06/18 Reason [...] the left vertebral artery. Procedure Carotid Duplex 83017. Exam performed portable in patient room. Interpretation Summary Mild (<50%) stenosis right extracranial internal carotid. No significant atherosclerotic plaque or stenosis noted in the left internal carotid artery. Flow within the vertebral arteries is antegrade bilaterally. Ordering Physician: María Barnes Referring Physician: Doris Navarro M.D. Performed By: Nancy Stevens RVT 02/08/18 1030 Date Mehran Damon MD CC: María Barnse; Doris Navarro DO; Lance Messina DO Date Dictated: 02/07/18 0840 Date Transcribed: 02/08/18 1030 Mathematics Lecturer: Signed DISCHARGE SUMMARY Observed: 02/07/2018 Status: F Source: [place] 5:15 PM [facility] Medical Records Department [address] [place] [address] Discharge Summary 02/07/18 1710 MR#: [id number] Acct: [id number] Name: MARICRUZ GRIGSBY Rep #: [id number] : 1940 77 From: Lance Messina DO PCP: Doris Navarro DO Status: DIS DEEPAK Y Location: [place] [address] Discharge Date and Diagnosis Date of Admission: [...] was seen in the emergency room at [facility] with chief complaint of double vision. She [...] Rod Melendrez MD When: in 2-3 weeks [phone] Disposition: Home Minutes spent on discharge:: 25 Patient Condition:: Stable Medical Necessity - Tobacco Use Smoking Status: Never smoker Meaningful Use Info Meaningful Use Diagnoses (Choose all that apply): None applicable Code Visit OBSV E AND M: 18849 Observation care discharge 02/07/18 1715 <Electronically signed by Lance Messina DO> Date Lance Messina DO Cosigner Signature (if applicable): Date CC: Doris Navarro DO; Lance Messina DO Signed DISCHARGE INSTRUCTION Observed: 02/07/2018 Status: F Source: [place] 4:42 PM [facility] Medical Records Department [address] [place] [address] Instructions for Home/Discharge Instructions 02/07/18 1639 MR#: [id number] Acct: [id number] Name: MARICRUZ GRIGSBY Rep #: [id number] : 1940 77 From: Lance Messina DO [...] Rod Melendrez MD When: in 2-3 weeks [phone] 02/07/18 1642 <Electronically signed by Lance Messina DO> Date Lance Messina DO CC: Doris Melanie DO; Rod Melendrez MD BEDSIDE GLUCOSE Collected: 02/07/2018 Status: F Source: [place] 4:12 PM [facility] TYPE CODE TESTS RESULT OUT OF REFERENCE UNITS RANGE LAB L501.080 70-110 mg/dL High BEDSIDE GLU 165 Result Comment: Dr Vincent Followed Insulin Given MANAGEMENT OF PATIENT CARE PER NURSING PROTOCOL Performed By: #### L501.080 #### [facility] Point of Care [address] [place] [address] [facility] SPANNER OPERATOR AB, Collected: 02/07/2018 Status: F Source: [place] BLOCKING 12:58 PM [facility] TYPE CODE TESTS RESULT OUT OF RANGE REFERENCE UNITS LAB L3410.0100 0-25 % Normal [facility] REC 11 24533 Result Comment: Negative: 0 - 25 Borderline: 26 - 30 Positive: >30 Results for this test are for research purposes only by the assay's wired music operator. The performance characteristics of this product have not been established. Results should not be used as a diagnostic procedure without confirmation of the diagnosis by another medically established diagnostic product or procedure. Performed By: #### L3410.0100, L3410.0200 #### [facility] (refer to report for specific site) refer to report for address and phone number [facility] AB MODULATING Collected: 02/07/2018 Status: F Source: [place] 12:58 PM [facility] TYPE CODE TESTS RESULT OUT OF RANGE REFERENCE UNITS LAB L3410.0200 0-20 % Normal [facility] AB <12 [address]72 Result Comment: Negative: <21 Equivocal: 21 - 25 Positive: >25 The assay is linear between values of 12 and 64. Those <12 and >64 are reported as such. No single value for ACR-modulating antibody should be used as a sole basis for diagnosis or response to therapy. Performed at: - [facility] [id number] Product Engineer: Frantz Josue MD, Phone: [phone] Performed By: #### L3410.0100, L3410.0200 #### [facility] (refer to report for specific site) refer to report for address and phone number ECHOCARDIOGRAM COMPLETE Observed: 02/07/2018 Status: F Source: [place] 12:22 PM [facility] Cardiovascular Services [address] [place] [address] Echo Complete 02/07/18 1102 MR#: [id number] Acct: [id number] Name: MARICRUZ GRIGSBY Rep #: [id number] : 1940 77 From: Jason Barth MD [...] DO Date Dictated: 02/07/182 Date Transcribed: 02/07/181220 Mathematics Lecturer: Signed BEDSIDE GLUCOSE Collected: 02/07/2018 Status: F Source: [place] 11:25 AM [facility] REPOSITORY TYPE CODE TESTS RESULT OUT OF REFERENCE UNITS RANGE LAB L501.080 70-110 mg/dL High BEDSIDE GLU 224 Result Comment: MANAGEMENT OF PATIENT CARE PER NURSING PROTOCOL Performed By: #### L501.080 #### [facility] Point of Care [address] [place] [address] BEDSIDE GLUCOSE Collected: 02/07/2018 Status: F Source: [place] 6:44 AM [facility] TYPE CODE TESTS RESULT OUT OF REFERENCE UNITS RANGE LAB L501.080 70-110 mg/dL High BEDSIDE GLU 161 Result Comment: MANAGEMENT OF PATIENT CARE PER NURSING PROTOCOL Performed By: #### L501.080 #### [facility] Point of Care [address] [place] [address] LIPID PROFILE Collected: 02/07/2018 Status: F Source: [place] 5:10 AM [facility] TYPE CODE TESTS RESULT OUT OF [...] VLDL 47 Performed By: #### L500.4100 #### [facility] [address] [place], [address] EMERGENCY DEPARTMENT Observed: 02/07/2018 Status: F Source: [place] SUMMARY 12:12 AM [facility] Medical Records Department [address] [place] [address] Emergency Department Summary 02/06/182020 MR#: [id number] Acct: [id number] Name: MARICRUZ GRIGSBY Rep #: [id number] : 1940 77 From: Jered Marte MD [...] 1. Diplopia This note was generated with Digitwhiz dictation software. It may contain incorrect words, [...] your Primary Care Provider. Call [facility] ([phone]) or report to the closest Emergency Room. Call 911 if necessary. 02/07/18 0012 <Electronically signed by Jered Marte MD> Date Jered Marte MD Cosigner Signature (If Indicated): Date CC: Doris Navarro DO BEDSIDE GLUCOSE Collected: 02/06/2018 Status: F Source: [place] 11:02 PM [facility] TYPE CODE TESTS RESULT OUT OF REFERENCE UNITS RANGE LAB L501.080 70-110 mg/dL High BEDSIDE GLU 145 Result Comment: MANAGEMENT OF PATIENT CARE PER NURSING PROTOCOL Performed By: #### L501.080 #### [facility] Point of Care [address] [place] [address]. [place] [address] BRAIN WITHOUT Observed: 02/06/2018 Status: F Source: [place] CONTRAST 9:54 PM [facility] Imaging Services [address] [place] [address] Brain without Contrast MR#: [id number] Acct: [id number] Name: JOSE AHOMERO CRUZMARICRUZ L Rep #: [id number] : 1940 F 77 From: Darby Franco PCP: Doris Navarro DO Status: ADM DEEPAK Study: Brain without Contrast Date of Exam: 02/07/18 Exam# [id number] Ordering Dr: María Barnes MD STUDY: MRI [...] , CC: María Barnes; Doris Navarro DO Mathematics Lecturer: Signed HISTORY AND PHYSICAL Observed: 02/06/2018 Status: F Source: [place] EXAM 9:09 PM [facility] [place] Medical Records Department [address] [place] [address] History and Physical 02/06/182050 MR#: [id number] Acct: [id number] Name: MARICRUZ GRIGSBY Rep #: [id number] : 1940 77 From: María Barnes MD [...] cholecystectomy Psychiatric History: No pertinent psych hx LIGHT INDUSTRIAL History: No pertinent LIGHT INDUSTRIAL history Lives: Spouse/ Significant Other Smoking Status: [...] Subcu heparin. This note was generated with Digitwhiz dictation software. It may contain incorrect words, spelling, and punctuation that were not noted in checking the note before signing. Code Visit OBSV E AND M: [id number] Initial observation care L3 02/06/18 5810 <Electronically signed by María Barnes MD> Date María Barnes MD Cosigner Signature: Date (if applicable) CC: María Barnes; Doris Navarro DO Signed BEDSIDE GLUCOSE Collected: 02/06/2018 Status: F Source: [place] 6:16 PM [facility] TYPE CODE TESTS RESULT OUT OF REFERENCE UNITS RANGE LAB L501.080 70-110 mg/dL High BEDSIDE GLU 152 Result Comment: MANAGEMENT OF PATIENT CARE PER NURSING PROTOCOL Performed By: #### L501.080 #### [facility] Point of Care [address] [place] [address] CHEST 1 VIEW Observed: 02/06/2018 Status: F Source: [place] 5:56 PM [facility] Imaging Services [address] [place] [address] Chest 1 View MR#: [id number] Acct: [id number] Name: CLIFFORD CRUZMARICRUZ Stuart Rep #: [id number] : 1940 F 77 From: Renata Lee MD PCP: Doris Navarro DO Status: REG ER Study: Chest 1 View Date of Exam: 02/06/18 Exam# [id number] Ordering Dr: Jered Marte MD STUDY: X-RAY [...] , CC: Doris Navarro DO; Jered Marte Mathematics Lecturer: Signed BRAIN/HEAD WITHOUT Observed: 02/06/2018 Status: F Source: [place] CONTRAST 5:56 PM [facility] Imaging Services [address] [place] [address] Brain/Head without Contrast MR#: [id number] Acct: [id number] Name: MARICRUZ GRIGSBY Rep #: [id number] : 1940 F 77 From: Renata Lee MD PCP: Doris Navarro DO Status: REG ER Study: Brain/Head without Contrast Date of Exam: 02/06/18 Exam# [id number] Ordering Dr: Jered Marte MD STUDY: CT [...] , CC: Doris Navarro DO; Jered Marte Mathematics Lecturer: Signed BASIC METABOLIC Collected: 02/06/2018 Status: F Source: [place] PROFILE (BMP) 5:45 PM [facility] TYPE CODE TESTS RESULT OUT OF [...] 8 Performed By: #### L500.2500, L501.4010 #### [facility] [address] [place], [address] TROPONIN-I Collected: 02/06/2018 Status: F Source: [place] 5:45 PM [facility] TYPE CODE TESTS RESULT OUT OF RANGE REFERENCE UNITS LAB L501.4010 <0.045 ng/mL Normal < 0.015 TROPONIN-I Result Comment: TROPONIN-I EXPECTED VALUES <0.045 Negative 0.045 - 0.590 Consistent with Cardiac Damage > OR = 0.600 Critical Value Not every elevated troponin is indicative of SD. These values should be used with clinical judgement in examining the patient's clinical picture for diagnosis. To establish a diagnosis of SD versus myocardial injury, there must be a demonstrated rise and/or fall in the troponin values, in addition to ischemic symptoms, EKG changes, new regional wall motion abnormality, and/or angiographical evidence. PLEASE NOTE: REFERENCE RANGES EDITED 17 Performed By: #### L500.2500, L501.4010 #### [facility] [address] [place], [address] PROTHROMBIN TIME W/INR Collected: 02/06/2018 Status: F Source: [place] 5:45 PM [facility] TYPE CODE TESTS RESULT OUT OF RANGE REFERENCE UNITS LAB L300.4150 11.7-14.9 SECONDS Normal PROTIME 12.5 LAB L300.4200 Normal INR 0.9 Performed By: #### L300.3900, L300.4310 #### [facility] [address] [place], [address] PARTIAL THROMBOPLAST Collected: 02/06/2018 Status: F Source: [place] TIME 5:45 PM [facility] TYPE CODE TESTS RESULT OUT OF RANGE REFERENCE UNITS LAB L300.4310 24.1-36.2 Seconds Normal PTT 33.0 Performed By: #### L300.3900, L300.4310 #### [facility] [address] [place], [address] CBC W/DIFF, AUTOMATED Collected: 02/06/2018 Status: F Source: [place] 5:45 PM [facility] TYPE CODE TESTS RESULT OUT OF [...] Lymph 1.73 Performed By: #### L100.0100 #### [facility] [address] [facility] [place], [place], [address] LIVER Observed: 11/25/2017 Status: F Source: [place] 10:35 AM [facility] Imaging Services [address] [place] [address] Liver MR#: [id number] Acct: [id number] Name: MARICRUZ GRIGSBY #: [id number] : 1940 F 77 From: Mack Hand MD PCP: Doris Navarro DO Status: REG CLI Study: Liver Date of Exam: 11/25/17 Exam# [id number] Ordering Dr: Doris Navarro DO STUDY: ABDOMINAL [...] Service support , CC: Doris Navarro DO Mathematics Lecturer: Signed HIP 2-3 VIEWS WITH Observed: 10/29/2017 Status: F Source: [place] PELVIS 11:24 AM [facility] Imaging Services [address] [place] [address] Hip 2-3 Views with Pelvis MR#: [id number] Acct: [id number] Name: MARICRUZ GRIGSBY Rep #: [id number] : 1940 F 77 From: Benji Finch PCP: Doris Navarro DO Status: REG CLI Study: Hip 2-3 Views with Pelvis Date of Exam: 10/29/17 Exam# [id number] Ordering Dr: Thelma Sofia STUDY: X-RAY - [...] , CC: QUINN Sofia; Doris Navarro DO Mathematics Lecturer: Signed 12 LEAD ELECTROCARDIOGRAM Observed: 08/27/2017 Status: F Source: [place] 10:37 AM [facility] REPOSITORY [facility] Cardiovascular Services [address] [place] [address] 12 Lead EKG 08/24/17 1719 MR#: [id number] Acct: [id number] Name: MARICRUZ GRIGSBY Rep #: [id number] : 1940 77 From: Maurilio Rowe MD [...] ECG Confirmed by SOLEDAD STREETER, MAURILIO ([id number]), video news editor STACY CARTER ([id number]) on 08/27/2017 10:37:34 AM Referred By: EITAN Confirmed By:MAURILIO ROWE MD 08/27/17 1037 Date Maurilio Rowe MD CC: Doris Navarro DO Signed EMERGENCY DEPARTMENT Observed: 08/25/2017 Status: F Source: [place] SUMMARY 12:01 AM [facility] Medical Records Department [address] [place] [address] Emergency Department Summary 08/24/17 1709 MR#: [id number] Acct: [id number] Name: MARICRUZ GRIGSBY Stuart Rep #: [id number] : 1940 77 From: Zee Denise MD [...] at home. She has no history of SD PE or DVT she does have history [...] be altered This note was generated with Digitwhiz dictation software. It may contain incorrect words, [...] your Primary Care Provider. Call [facility] ([phone]) or report to the closest Emergency Room. Call 911 if necessary. 08/25/17 0001 <Electronically signed by Zee Denise MD> Date Zee Denise MD Cosigner Signature (If Indicated): Date CC: Doris Navarro DO DISCHARGE INSTRUCTION Observed: 08/24/2017 Status: F Source: [place] 6:21 PM [facility] [place] Medical Records Department [address] [place] [address] Discharge Instruction 08/24/17 182 MR#: [id number] Acct: [id number] Name: MARICRUZ GRIGSBY Rep #: [id number] : 1940 77 From: Zee Denise MD [...] your Primary Care Provider. Call [facility] ([phone]) or report to the closest Emergency Room. Call 911 if necessary. 08/24/17 182 <Electronically signed by Zee Denise MD> Date Zee Denise MD Cosigner Signature (If Indicated): Date CC: Doris Navarro DO CBC W/DIFF, AUTOMATED Collected: 08/24/2017 Status: F Source: [place] 5:40 PM [facility] TYPE CODE TESTS RESULT OUT OF [...] Lymph 1.65 Performed By: #### L100.0100 #### [facility] [address] [place], [address] BASIC METABOLIC Collected: 08/24/2017 Status: F Source: [place] PROFILE (BMP) 5:40 PM [facility] Order Comment: 'TROP' Serial specimen #1, [...] 11 Performed By: #### L500.2500, L501.4010 #### [facility] [address] [place], [place], [address] TROPONIN-I Collected: 08/24/2017 Status: F Source: [place] 5:40 PM [facility] Order Comment: 'TROP' Serial specimen #1, #2, #3, or #4: 1 TYPE CODE TESTS RESULT OUT OF RANGE REFERENCE UNITS LAB L501.4010 <0.06 ng/mL Normal < 0.02 TROPONIN-I Result Comment: TROPONIN-I EXPECTED VALUES <0.05 NEGATIVE 0.06 - 0.59 AT RISK OF SD > OR = 0.60 SUGGEST SD Performed By: #### L500.2500, L501.4010 #### [facility] [address] [place], [address] BNP,B-TYPE NATRIURETIC Collected: 08/24/2017 Status: F Source: [place] PEPTIDE 5:40 PM [facility] TYPE CODE TESTS RESULT OUT OF RANGE REFERENCE UNITS LAB L503.6620 0-100 pg/mL Normal B-TYPE 13.3 SANJU PEP Performed By: #### L503.6620 #### [facility] [address] [place], [address] CHEST PA AND LATERAL Observed: 08/24/2017 Status: F Source: [place] 5:10 PM [facility] [place] Imaging Services [address] [place] [address] Chest PA and Lateral MR#: [id number] Acct: [id number] Name: MARICRUZ GRIGSBY Rep #: [id number] : 1940 F 77 From: Stacy Tapia MD PCP: Doris Navarro DO Status: REG ER Study: Chest PA and Lateral Date of Exam: 08/24/17 Exam# [id number] Ordering Dr: Zee Denise MD XR Chest [...] CC: MD Sonam Denise; Doris Navarro DO Mathematics Lecturer: Signed PROGRESS Observed: 08/24/2017 Status: COMPLETED Source: [place] 4:49 PM [facility] [place] REPOSITORY HNO ID: [id number] Author: Deya To Service: (none) Author Type: [...] of Onset - Coronary Artery Disease Father SD age 68 - Coronary Artery Disease Mother SD age 70's - Diabetes mother, sister, mat aunt grndm - Stroke TIA's: mother, sister - Lipids Mother Social History Substance Use Topics - Smoking status: Never Smoker - Smokeless tobacco: Never Used - Alcohol use No ASSESSMENT/PLAN: 1. Respiratory distress - ICD9: 786.09, ICD10: R06.03 Referred to ED for further evaluation and management. Pt and refuse transfer via squad. will drive pt to [facility] ED now. The patient is in [facility] To CNP CNOV Observed: 08/24/2017 Status: COMPLETED Source: [place] 3:[address] [facility] REPOSITORY Office Visit (WSTR) MARICRUZ GRIGSBY ([id number]) 1940 F Date Time Provider Department 08/24/17 3:30 PM [facility] During your visit today, we recorded the [...] of Onset - Coronary Artery Disease Father SD age 68 - Coronary Artery Disease Mother SD age 70's - Diabetes mother, sister, mat aunt grndm - Stroke TIA's: mother, sister - Lipids Mother Social History Substance Use Topics - Smoking status: Never Smoker - Smokeless tobacco: Never Used - Alcohol use No ASSESSMENT/PLAN: 1. Respiratory distress - ICD9: 786.09, ICD10: R06.03 Referred to ED for further evaluation and management. Pt and refuse transfer via squad. will drive pt to [facility] ED now. The [facility] in [facility] Referring Provider: SELF [200] Allergies [...] AND LATERAL Observed: 08/07/2017 Status: F Source: [place] 1:15 PM [facility] Imaging Services [place] [address] Chest PA and Lateral MR#: [id number] Acct: [id number] Name: MARICRUZ GRIGSBY Rep #: [id number] : 1940 F 77 From: Teo Garrido MD PCP: Doris Navarro DO Status: REG CLI Study: Chest PA and Lateral Date of Exam: 08/07/17 Exam# [id number] Ordering Dr: Doris Navarro DO STUDY: X-RAY [...] Teo Garrido MD at 13:49 EST Tel [phone], Service support , CC: Doris Navarro DO Mathematics Lecturer: Signed PROGRESS Observed: 07/24/2017 Status: COMPLETED Source: [place] 2:00 PM [facility] REPOSITORY HNO ID: [id number] Author: Carolina Obrien (Robbin) IVAN Cheung Service: [...] 24 HR TAB) Take one(1) tablet daily. Aarbaxcvlidgmmd-Czokxhrav-YT (BROMFED DM) 2-30-10 mg/5 mL syrup Take 10 mL by mouth four times daily as needed for up to 7 days. predniSONE (DELTASONE) 20 mg tablet Take 2 tablets by mouth once daily for 5 days. Take daily with food. LEVOTHYROXINE 150 MCG TAB Take one tablet daily FAMILY HISTORY Problem Relation Age of Onset - Coronary Artery Disease Father SD age 68 - Coronary Artery Disease Mother SD age 70's - Diabetes mother, sister, mat [...] CNP CNOV Observed: 07/24/2017 Status: COMPLETED Source: [place] 1:[address] [facility] REPOSITORY Office Visit (WSTR) MARICRUZ GRIGSBY ([id number]) 1940 F Date Time Provider Department 07/24/17 1:15 PM [facility]OL[facility]UNG (TIE BUCKER) WSTR During your visit today, we recorded [...] 24 HR TAB) Take one(1) tablet daily. Vyttfihnbqzmlln-Togynrynp-FV (BROMFED DM) 2-30-10 mg/5 mL syrup Take 10 mL by mouth four times daily as needed for up to 7 days. predniSONE (DELTASONE) 20 mg tablet Take 2 tablets by mouth once daily for 5 days. Take daily with food. LEVOTHYROXINE 150 MCG TAB Take one tablet daily FAMILY HISTORY Problem Relation Age of Onset - Coronary Artery Disease Father SD age 68 - Coronary Artery Disease Mother SD age 70's - Diabetes mother, sister, mat [...] Visit Diagnosis:Viral URI with cough [J06.9, B97.89] Order(s):Gwqksnbkyqhyiln-Dklovhaxi-QJ (BROMFED DM) 2-30-10 mg/5 mL syrupTake 10 [...] ordered this encounter Disp Refills Start End LHAPUYVZBEFMXLY-KKBQJQSGFZRBBFP-TG 2* 240 * 0 07/24/2017 07/31/2017 Route: [...] NAME / CODE REACTION SEVERITY SOURCE Drug Penicillins/[id number] Hives Unknown [place] Allergy/337002888( 476(RXNORM) Formerly [facility] SNOMED [facility]) Hospital Repository Drug guaifenesin/E019540 Unknown Unknown [place] [facility] Allergy/919195766( 724(RXNORM) Formerly [facility] SNOM[facility]) Hospital Repository Drug naproxen/T570401710 Hives Unknown [place] Allergy/841195251( (RXNORM) [facility]ly [facility] SNOM[facility]) Hospital Repository Drug ketoprofen/K7533636 Unknown Unknown [place] 8 Allergy/798321301( 94(RXNORM) [facility]ly [facility] SNOMED [facility]) Hospital Repository Drug loracarbef/C5485094 Unknown Unknown [place] 8 Allergy/860028508( 67(RXNORM) [facility]ly [facility] SNOMED [facility]) Hospital Repository Miscellaneous bee sting Unknown Unknown [place] 8 Allergy/439895530( [facility] SNOMED [facility]) Hospital Repository Drug CEPHALOSPORINS [place] 0 Class/636604909([facility] OMED [facility]) [place] Repository Drug PENICILLINS [place] 0 Class/051961221([facility] OMED CT) [place] Repository ENCOUNTERS ENCOUNTERS ADMIT/DISCHARGE ACCOUNT ADMITTING ENCOUNTER LOCATION SOURCE NUMBER CLASS 07/10/2018 [id number] Ambulatory Building:[facility] OHIP Practices Repository 06/27/2018 [id number] [facility] ing:PT Repository 06/24/2018 [id number] [facility] ing:HPRAD Repository 05/14/2018/05/14/20 [id number] [address] ing:ED Repository 02/10/2018 [id number] Ambulatory [facility] Hospital ing:LAB Repository 02/07/2018/02/08/20 [id number] Ambulatory BMSBuilding:W [place] [address] [place] [address] Repository 02/06/2018/02/08/20 [id number] [facility], Ambulatory [place] [facility] Hospital ing:PCURoom: Repository [id number]: 1 02/06/2018 [id number] [facility], Ambulatory BMSBuilding:B [place] Daniel MS.Replaced by [facility] Repository 02/06/2018 [id number] Ambulatory BMSBuilding:Adelaida Borjas MS.Replaced by [facility] Repository 11/25/2017 [id number] Ambulatory [facility] Hospital ing:OPUS Repository 11/20/2017 [id number] Ambulatory [facility] Hospital ing:MASS Repository 11/12/2017/11/13/19 [id number] [address] ing:PT Repository 10/29/2017 [id number] Ambulatory [facility] Hospital ing:HPRAD Repository 08/24/2017/08/24/19 [id number] Emergency [address] Hospital ing:ED Repository 08/24/2017/08/24/19 [id number] Ambulatory [address] Repository 08/07/2017 [id number] Ambulatory [facility] Hospitalild Hospital ing:HPRAD Repository 07/24/2017/07/24/20 [id number] Ambulatory [address] Repository FUNCTIONAL STATUS FUNCTIONAL STATUS No Functional Status Records FoundEQUIPMENT EQUIPMENT No Equipment Records FoundPAYERS PAYERS ENCOUNTER GUARANTOR PAYER SUBSCRIBER SOURCE 07/10/2018 Maricruz Davidson Primary Maricruz Davidson OHIP [facility]ices [facility] Insurance:MedicarePol Formerly [facility] Repository B: icy Number: B: [id number] [place] Date:3654-14-53Mnqt 0 [place], [place] Name:[facility] [place] [address]Vil: [phone], [place] [address]Gte: [phone]: (HP) (HP) [phone] () 07/10/2018 Secondary Frantz MICHELLE Practices Insurance:Medical CurrenDOB: Repository [facility] [id number] Number: 8 [address] [id number] [place], [place] Date: - [address]Zvl: [phone] () Name:[facility] Charli [address] [place] [address] [id number]: 06/27/2018 FRANTZ E Primary MARICRUZ Borjas [id number] Insurance:MEDICARE CURRENDOB: [facility] A [facility] [id number] Number: Repository [address]Nta: [phone] [id number] [phone] () Date:2018-06-24 06/27/2018 Secondary NOT GIVENUNK [place] Insurance:SELF PAY [facility] Number: Effective Repository Date:2018-06-24 06/24/2018 FRANTZ E Primary MARICRUZ Borjas [id number] Insurance:MEDICARE CURRENDOB: [facility] PART A [facility] [id number], [place] Number: Repository [address]Mrb: [phone] [id number] [phone] () Date:2018-06-24 06/24/2018 Secondary NOT GIVENUNK [place] Insurance:SELF PAY [facility] Number: Effective Repository Date:2018-06-24 05/14/2018 FRANTZ E Primary MARICRUZ Borjas [id number] Insurance:MEDICARE CURRENDOB: [facility] PART A [facility] [id number], [place] Number: Repository [address]Wxd: [phone] [id number] [phone] (HP) Date:2018-05-14 05/14/2018 Secondary NOT GIVENUNK [place] Insurance:SELF PAY [facility] Number: Effective Repository Date:2018-05-14 02/10/2018 FRANTZ Poe Primary MARICRUZ Borjas [id number] Insurance:MEDICARE CURRENDOB: [facility] [place] [id number] [place] Number: Repository [address]Qih: 330 [id number] [phone] () Date:2018-02-10 02/10/2018 Secondary NOT GIVENUNK [place] Insurance:SELF PAY [facility] Number: Effective Repository Date:2018-02-10 02/07/2018 FRANTZ Poe Primary MARICRUZ Borjas [id number] Insurance:MEDICARE CURRENDOB: Community [place] PART A [facility] [id number] [facility] [place] Number: Repository [address]Trv: 330 [id number] [phone] () Date:2018-02-06 02/07/2018 Secondary NOT GIVENUNK [place] Insurance:SELF PAY [facility] Number: Effective Repository Date:2018-02-07 02/06/2018 FRANTZ Poe Primary MARICRUZ Borjas [id number] Insurance:MEDICARE CURRENDOB: Community [place] PART A [facility] [id number] [facility] [place] Number: Repository [address]Pio: 330 [id number] [phone] () Date:2018-02-06 02/06/2018 Secondary NOT GIVENUNK [place] Insurance:SELF PAY [facility] Number: Effective Repository Date:2018-02-06 02/06/2018 FRANTZ Poe Primary MARICRUZ Borjas [id number] Insurance:MEDICARE CURRENDOB: Community [place] PART A [facility] [id number] Park Medical Center [place] Number: Repository [address]Hnu: 330 [id number] [phone] () Date:2018-02-06 02/06/2018 Secondary NOT GIVENUNK [place] Insurance:SELF PAY [facility] Number: Effective Repository Date:2018-02-06 02/06/2018 FRANTZ E Primary MARICRUZ Borjas [id number] Insurance:MEDICARE CURRENDOB: Community [place] PART A [facility] [id number] Park Medical Center [place] Number: Repository [address]Kiu: 330 [id number] [phone] (HP) Date:2018-02-06 02/06/2018 Secondary NOT GIVENUNK [place] Insurance:SELF PAY [facility] Number: Effective Repository Date:2018-02-06 11/25/2017 FRANTZ E Primary MARICRUZ Borjas [id number] Insurance:MEDICARE CURRENDOB: [facility] RUN PART A [facility] [id number] Park Medical Center [place] Number: Repository [address]Cmh: 330 [id number] [phone] (HP) Date:2017-11-22 11/25/2017 Secondary NOT GIVENUNK [place] Insurance:SELF PAY [facility] Number: Effective Repository Date:2017-11-22 11/20/2017 FRANTZ E Primary NOT GIVENUNK [place] [id number] Insurance:SELF PAY [facility] [place] Number: Effective Repository [address]Dmx: (330) Date:2016-07-24 [facility]-4688 (HP) 11/12/2017 FRANTZ E Primary MARICRUZ Borjas [id number] Insurance:MEDICARE CURRENDOB: [facility] RUN PART A [facility] [id number] Park Medical Center [place] Number: Repository [address]Xit: 330 [id number] [phone] (HP) Date:2006-01-26 11/12/2017 Secondary NOT GIVENUNK [place] Insurance:SELF PAY [facility] Number: Effective Repository Date:2017-11-01 10/29/2017 FRANTZ E Primary MARICRUZ [place] [id number] Insurance:MEDICARE CURRENDOB: [facility] RUN PART A [facility] [id number] Park Medical Center [place] Number: Repository [address]Iab: 330 [id number] [phone] (HP) Date:2017-10-29 10/29/2017 Secondary NOT GIVENUNK [place] Insurance:SELF PAY [facility] Number: Effective Repository Date:2017-10-29 08/24/2017 Frantz Borjas [id number] Insurance:MEDICARE CURRENDOB: Community [place] PART A [facility] [id number] [place] Number: Repository [address]Pon: 330 [id number] [phone] () Date:2017-08-24 08/24/2017 Secondary NOT GIVENUNK [place] Insurance:SELF PAY [facility] Number: Effective Repository Date:2017-08-24 08/07/2017 Frantz Borjas [id number] Insurance:MEDICARE CURRENDOB: [facility] [place] PART A [facility] [id number] Number: Repository [address]Cyn: 330 [id number] [phone] () Date:2017-08-07 08/07/2017 Secondary NOT GIVENUNK [place] Insurance:SELF PAY [facility] Number: Effective Repository Date:2017-08-07 SOCIAL HISTORY SOCIAL HISTORY No Social History Records FoundFAMILY HISTORY FAMILY HISTORY No Family History Records FoundADVANCE DIRECTIVES ADVANCE DIRECTIVES No Advanced Directives Records FoundINFORMATION SOURCE INFORMATION SOURCE DATE CREATED AUTHOR AUTHOR'S ORGANIZATION 07/16/2018 MICHELLE
== END 2018-06-27 19:00 | disposition home or self-care (01) ==
LOC: PT 10:46
PROVIDERS: Family Provider Internal Medicine; PCP Internal Medicine; Referring Provider Internal Medicine; Visit Provider Internal Medicine
DX: M54.32 Sciatica, left side (principal); M54.31 Sciatica, right side
CPT/HCPCS: 97162

== ENCOUNTER 2018-07-16 12:25 | Emergency (ER) | payer MEDICARE, BC, SELFPAY ==
[2018-07-16 12:26] VITALS: PULSE 101; RESP 20; TEMP 35.9; O2SAT 97; BMI 35.3
--- NOTE | 2018-07-16 12:49 | ED.VISSUMM ---
- ER Visit Summary Date of Service: 07/16/18 Chief Complaint: Nausea, vomiting and diarrhea. History of Present Illness: The patient is a 78 F past medical history of prior stroke, hypertension mcx-fvevcxv-qxukfthoi diabetes. Patient states last 3-4 days she has had nausea, vomiting diarrhea. Minimal abdominal cramping. No hematemesis or melena. No significant abdominal pain. No dysuria. No fever. Physical Examination: Appearing older female. Vital signs are stable. She is afebrile. She does not look septic or toxic. HEENT exam mildly dry mucous membranes. Otherwise unremarkable. No facial droop. Normal speech. Neck nontender. No lymphadenopathy. Lungs clear to auscultation bilaterally. Heart regular rhythm rate about 100 no murmur. Abdomen soft. Nondistended. Normal bowel sounds. No peritoneal signs. Both the right upper right lower quadrant unremarkable. No hernias or masses. No signs of obstruction. Patient is moving all 4 extremities. Neurologically she is awake and alert with no focal motor deficits. Back exam nontender. Skin unremarkable. Test Results: CBC shows a white count of 9. Hemoglobin of 12. Electrolytes unremarkable BUN of 16 creatinine 1 efficiency. Emergency Department Course and Treatment: Older female with nausea, vomiting diarrhea suspect secondary to viral gastroenteritis. Treated with IV fluids and IV Zofran. Screening labs obtained. Repeat exam patient is doing well. She has been able to drink p.o. fluids. Abdomen is benign. She is feeling better. Treatment Plan: Zofran for nausea. Fluids and rest. Increase diet slowly. Disposition: Discharge Impression: Acute nausea, vomiting diarrhea secondary to viral gastroenteritis History of hhn-siddsws-wswphttti diabetes. This note was generated with [employer] dictation software. It may contain incorrect words, spelling, and punctuation that were not noted in review of the chart prior to signing ED Disposition - Plan for ED Patient: Chief Complaint: Nausea/Vomiting/Diarrhea Referrals: Doris Navarro DO [Primary Care Provider] -
[2018-07-16] MEDS: 0.9% Normal Saline 1,000 ML 1000 ML IV (12:54)
[2018-07-16] MEDS: Ondansetron 4 MG/2 ML Vial IV (12:54)
[2018-07-16 13:18] LABS: Absolute Lymphocyte Count 0.98 X10^3/ul (0.83-4.51); Absolute Neutrophil Count 7.6 X10^3/uL (2.0-7.7); Basophil# 0.02 X10^3/uL; Basophil% 0.2 % (0-1); Eosinophil# 0.11 X10^3/uL; Eosinophils% 1.2 % (0-5); Hematocrit 37.6 % (37-47); Hemoglobin 12.3 g/dl (12.0-15.0); Lymphocyte # 0.98 X10^3/ul (4.0); Lymphocyte % 10.8 % (19-41); Mean Corp Hgb Conc 32.7 g/gl (32-36); Mean Corpuscular Hgb 29.4 pg (27.0-32.0); Mean Corpuscular Volume 89.7 fL (81-99); Mean Platelet Vol. 10.3 fl (6.2-12.0); Monocyte% 4.4 % (0-10); Neutrophil # 7.58 X10^3/uL (2.7-7.7); Neutrophil % 83.2 % (47-70); POSITIVE COUNT NO; POSITIVE DIFFERENTIAL NO; POSITIVE MORPHOLOGY NO; Platelet Count 256 K/mm3 (150-450); RBC Distribution Width CV 14.1 % (11.6-14.6); RBC Distribution Width SD 45.5 fl (35.1-43.9); Red Blood Count 4.19 M/mm3 (4.2-5.4); White Blood Count 9.1 K/mm3 (4.4-11.0)
[2018-07-16 13:25] LABS: Anion Gap 13 (5-15); BUN 16 mg/dL (7-18); Calcium,Total 9.5 mg/dL (8.5-10.1); Chloride 104 mmol/L (98-107); Creatinine, Serum 1.45 mg/dL (0.55-1.02); EST Glomerular Filtration Rate 37 mL/min (>60); Est Glom Filt Rate - Afr Amer 45 mL/min (>60); Estimated Creatinine Clearance 29.24 ml/min; Glucose 196 mg/dL (74-106); Potassium 3.7 mmol/L (3.5-5.1); Sodium Level 142 mmol/L (136-145)
--- NOTE | 2018-07-16 14:05 | ED.DEP ---
ED Disposition - Plan for ED Patient: Disposition: Home or Assisted Living Chief Complaint: Nausea/Vomiting/Diarrhea Instructions: ED Gastroenteritis Viral Prescriptions: Ondansetron [Zofran Odt] 4 mg PO Q8H PRN PRN #7 tab PRN Reason: Nausea Referrals: Doris Navarro DO [Primary Care Provider] - 1-2 Days if not improving Additional Instructions: Plenty of fluids and rest. Increase diet slowly. Zofran as needed for nausea. Follow-up with your doctor if not improving or return to ER if feeling worse.
[2018-07-16 14:17] VITALS: BP 165/84; PULSE 92; RESP 16; O2SAT 97
--- NOTE | 2018-07-16 14:18 | ED.RN ---
REVIEWED D/C INSTRUCTIONS, FOLLOW UP CARE, PRESCRIPTION, AND S/S THAT WOULD WARRANT A RETURN TO THE ED WITH PT. PT VERBALIZED AN UNDERSTANDING AND DENIES FURTHER QUESTIONS FOR THIS RN. PT SKIN P/W/D, RESP EVEN AND UNLABORED, PT A&O X 3, NO DISTRESS NOTED. PT AMBULATED OUT OF ED, GAIT STEADY.
--- OUTSIDE RECORDS SUMMARY | 2018-10-17 20:22 | XMS RPT_ITS ---
:1940 Author Organization OHIP Support Name Relationship Address Phone MELANIE FRIEDMAN Unrelated Friend Unavailable + [place] [address] FABYFRANTZ THORNE [address] + [place] [address] R Unknown Unavailable Unavailable BONDALTON, MELANIE Unrelated Friend Unavailable + [place] [address] ANTHONY, FRANTZ [address] + [place] [address] R Unknown Unavailable Unavailable BONDALTON, MELANIE Unrelated Friend Unavailable + [place] [address] FRANTZ CRUZ [address] + [place] [address] R Unknown Unavailable Unavailable BONDALTON, MELANIE Unrelated Friend Unavailable + [place] [address] ANTHONY, FRANTZ [address] + [place] [address] R Unknown Unavailable Unavailable BONDALTON, MELANIE Unrelated Friend Unavailable + [place] [address] FRANTZ CRUZ [address] + [place] [address] R Unknown Unavailable Unavailable BONDALTON, MELANIE Unrelated Friend Unavailable + [place] [address] ANTHONY, FRANTZ [address] + [place] [address] R Unknown Unavailable Unavailable BONITZ, MELANIE Unrelated Friend Unavailable + [place] [address] ANTHONY, FRANTZ [address] + [place] [address] R Unknown Unavailable Unavailable BONDALTON, MELANIE Unrelated Friend Unavailable + [place] [address] FRANTZ CRUZ [address] + [place] [address] R Unknown Unavailable Unavailable BONITZ, MELANIE Unrelated Friend Unavailable + [place] [address] FRANTZ CRUZ [address] + [place] [address] R Unknown Unavailable Unavailable BONITZ, MELANIE Unrelated Friend Unavailable + [place] [address] FRANTZ CRUZ [address] + [place] [address] R Unknown Unavailable Unavailable BONITZ, MELANIE Unrelated Friend Unavailable + FRANTZ CRUZ [address] + [place] [address] R Unknown Unavailable Unavailable BONITZ, MELANIE Unrelated Friend Unavailable + FRANTZ CRUZ [address] + [place] [address] R Unknown Unavailable Unavailable BONITZ, MELANIE Unrelated Friend Unavailable + FRANTZ CRUZ [address] + [place] [address] R Unknown Unavailable Unavailable BONITZ, MELANIE Unrelated Friend Unavailable + FRANTZ CRUZ [address] + [place] [address] R Unknown Unavailable Unavailable BONITZ, MELANIE Unrelated Friend . + ., . . FRANTZ CRUZ [address] + [place] [address] R Unknown Unavailable Unavailable Care Team Providers Name Role Phone Melanie Doris Primary Care Unavailable Johnnie Baez Attending Unavailable MelanieJdDoris Attending Unavailable Melanie, Doris Primary Care Unavailable DOCTOR, OUT OF TOWN Attending Unavailable Melanie, Doris Primary Care Unavailable Melanie, Doris Primary Care Unavailable Zee Denise Attending Unavailable Melanie, Doris Primary Care Unavailable Thelma Sofia BALL WINDER-C Attending Unavailable Thelma Sofia BALL WINDER-C Referring Unavailable MelanieDoris Attending Unavailable Melanie, Doris Referring Unavailable Melanie, Doris Primary Care Unavailable Melanie Doris Attending Unavailable Melanie, Doris Primary Care Unavailable Melanie, Doris Primary Care Unavailable María Barnes Admitting Unavailable Rod Melendrez Consulting Unavailable Lance Messina Attending Unavailable Ashelfah, Ghasem Attending Unavailable Melanie, Doris Primary Care Unavailable Ashelfah, Ghasem Admitting Unavailable Tereletsky, Lance Attending Unavailable Melanie, Doris Primary Care Unavailable Rod Melendrez Consulting Unavailable Tereletsky, Lance Consulting Unavailable Melanie, Doris Attending Unavailable Melanie, Doris Referring Unavailable Melanie, Doris Primary Care Unavailable Lary, Jason Attending Unavailable Melanie, Doris Primary Care Unavailable Zee Denise Attending Unavailable Melanie, Doris Attending Unavailable Melanie, Doris Referring Unavailable Melanie, Doris Primary Care Unavailable Melanie, Doris Attending Unavailable Melanie, Doris Referring Unavailable Melanie, Doris Primary Care Unavailable Melanie DO, Doris Attending Unavailable Fast DO, Maggie A Referring Unavailable Melanie DO, Doris Consulting Unavailable LULA, EVANS S Attending Unavailable LULA, EVANS S Referring Unavailable LULA, EVANS S Referring Unavailable Purpose Purpose PROBLEMS PROBLEMS DATE TYPE CONDITION / CODE ATTENDING STATUS SOURCE 08/21/2012 Active 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 / Repository I65.1(ICD-10) 08/01/2018 Unknown M54.32 - Melanie, Doris Active [place] Sciatica, left [facility] Hospital M54.32(ICD-10) Repository 08/01/2018 Unknown M54.31 - Melanie, Doris Active [place] Sciatica, right [facility] side [facility] Hospital M54.31(ICD-10) Repository 05/14/2018 Unknown R52 - Pain, Jwayyed, Active [place] unspecified / [facility] R52(ICD-10) Hospital Repository 02/27/2018 Unknown R74.8 - Abnormal Melanie, Doris Active [place] levels of other [facility] serum enzymes / Hospital R74.8(ICD-10) Repository 05/08/2018 Unknown M25.552 - Pain in Melanie, Doris Active [place] left hip / [facility] M25.552(ICD-10) Hospital Repository PROCEDURES PROCEDURES No Procedure Records FoundVITAL SIGNS VITAL SIGNS No Vital Signs Records FoundRESULTS RESULTS INITAL EVALUATION (1) Observed: 08/13/2018 Status: F Source: [place] - PT [facility] [address] [place] [address] / REHABILITATION SERVICES INITIAL EVALUATION MR#: [id number] Acct: [id number] Name: MARICRUZ GRIGSBY Rep #: [id number] : 1940 78 From: Karen Flores DPT Referring Dr.: Doris Navarro DO Status: REG RCR Insurance: [employer] SELF PAY INSURANCE Patient's Visit Information MARICRUZ CRUZ is a 78 year old F referred to Physical Therapy by Doris Navarro DO with a diagnosis of Sciatica. Date of Evaluation: 08/13/18 Physical Therapist: Karen Flores DPT - Visit Plan Frequency: 2x /Week Duration: 4 Weeks Plan: Females Only- focus on LE and core s/s- possible flexion based exercise program - Subjective Findings: Patient reports that bother her legs have hurt her for over a year. Feels like her back and legs are tight and have not loosed up and feel tight. She fell down the basement steps about a year ago and that started her issues. Broke ribs on both sides in the fall. Feels that pain is getting better its just slow. Describes the pain as achy with ambulation. Best: 0/10 Eases: sitting Agg: standing, walking Worst: 5/10. Pain is lcoated in the buttocks and travels to the knees. No N/T in the toes. Has a history fo back problems- had therapy- on/off her whole life. No surgeries or injections in the back. Is not very active- feels no desire to do anything due to the pain in her legs. Sleep: not disturbed. Has had recent x-rays on the back. PMXh:HTN, DM, Cancer Meds: see list - Objective POSTURE: FH, RS, Increased kyphosis- does not correct with verbal or tacile cueing PALPATION: Tender along gluts bilaterally. Sensation/Reflexes: WNL. HR/TR: able with UE A from wall- equal bilaterally. SLS: WS but unable to SLS. ROM: Lumbar- Flexion- hands to mid tijerina,Extn: very little from lumbar spine SB mod loss bilat, rotation mod loss bilat Hip/Knee Ankle: WNL. Flexibility: HS: moderate restriction bilaterally. MMT: RLE- ankle 5/5 throughout; knee- ext 4+/5, flexion 4/5; hip- flexion 4-/5 in SLR, abd 4/5, ext 4/5. LLE-ankle 5/5 throughout; knee- ext 4+/5, flexion 4/5; hip- flexion 4-/5 with SLR, abd 4/5, ext 4/5. Core strenth- poor. GAIT: Pt. ambulates without AD- but it is abnormal- decreased stance on her right LE with a lumbering stance. STAIRS: asc/desc 8 recip with 2 HR-slow jaison and uses UE A from asc and uncontrolled descent - Goals Goal 1:: Patient will be I with HEP and progression Goal Time Frame: 4-6 Weeks Goal 2:: Patient will ambulate >300 feet with a normalized gait pattern and LRD Goal Time Frame: 4-6 Weeks Goal 3:: Patient reginald asc/desc 8 stairs recip with 1 HR and good technique Goal Time Frame: 4-6 Weeks Goal 4:: Patient will maintain proper posture t/o tx session to demo increased core s/s. Goal Time Frame: 4-6 Weeks - Rehabilitation Potential Physical Therapy Diagnosis: Patient presents with hypomobility- she has decreased strength, flex and muscular endurance leading abnormal gait and increased pain with ADL's. Rehabilitation Potential: Fair - Anticipated Interventions Patient/Client Instruction: Educate patient on: Benefits of Fitness Program Therapeutic Exercise to Include: Strength training, Endurance training, Balance training, Body mechanics, Postural training, Flexibilty training, Gait and locomotor training, Dynamic Lumbar Stabilization For the Purpose of:: To improve muscle performance and motor function TENS: Yes Cryotherapy (ice pack, ice massage): Yes Thermo therapy (hot pack): Yes Ultrasound (thermal/non thermal): Yes For the Purpose of:: To decrease pain Thank you for the opportunity to evaluate your patient. For Medicare and Medicare HMO plans, please review the plan of care and approve it. It will need to be FAXED BACK to us at [phone] for Medicare purposes. For Medicare only, by signing this I certify the plan of care. Please let me know if there are questions or concerns regarding this plan of care. Physician Signature: Date: <Electronically signed by Karen GODWINT> 08/13/18 1550 CC: Doris Navarro DO ELR Signed INITAL EVALUATION (1) Observed: 08/13/2018 Status: F Source: [place] - PT 3:48 PM [facility] REPOSITORY [facility] [address] [place] [address] / REHABILITATION SERVICES INITIAL EVALUATION MR#: [id number] Acct: [id number] Name: MARICRUZ GRIGSBY Rep #: [id number] : 1940 78 From: Karen Flores DPT Referring Dr.: Doris Navarro DO Status: REG RCR Insurance: [facility] [employer] SELF PAY INSURANCE Patient's Visit Information MARICRUZ CRUZ is a 78 year old F referred to Physical Therapy by Doris Navarro DO with a diagnosis of Sciatica. Date of Evaluation: 08/13/18 Physical Therapist: Karen Flores DPT - Visit Plan Frequency: 2x /Week Duration: 4 Weeks Plan: Females Only- focus on LE and core s/s- possible flexion based exercise program - Subjective Findings: Patient reports that bother her legs have hurt her for over a year. Feels like her back and legs are tight and have not loosed up and feel tight. She fell down the basement steps about a year ago and that started her issues. Broke ribs on both sides in the fall. Feels that pain is getting better its just slow. Describes the pain as achy with ambulation. Best: 0/10 Eases: sitting Agg: standing, walking Worst: 5/10. Pain is lcoated in the buttocks and travels to the knees. No N/T in the toes. Has a history fo back problems- had therapy- on/off her whole life. No surgeries or injections in the back. Is not very active- feels no desire to do anything due to the pain in her legs. Sleep: not disturbed. Has had recent x-rays on the back. PMXh:HTN, DM, Cancer Meds: see list - Objective POSTURE: FH, RS, Increased kyphosis- does not correct with verbal or tacile cueing PALPATION: Tender along gluts bilaterally. Sensation/Reflexes: WNL. HR/TR: able with UE A from wall- equal bilaterally. SLS: WS but unable to SLS. ROM: Lumbar- Flexion- hands to mid tijerina,Extn: very little from lumbar spine SB mod loss bilat, rotation mod loss bilat Hip/Knee Ankle: WNL. Flexibility: HS: moderate restriction bilaterally. MMT: RLE- ankle 5/5 throughout; knee- ext 4+/5, flexion 4/5; hip- flexion 4-/5 in SLR, abd 4/5, ext 4/5. LLE-ankle 5/5 throughout; knee- ext 4+/5, flexion 4/5; hip- flexion 4-/5 with SLR, abd 4/5, ext 4/5. Core strenth- poor. GAIT: Pt. ambulates without AD- but it is abnormal- decreased stance on her right LE with a lumbering stance. STAIRS: asc/desc 8 recip with 2 HR-slow jaison and uses UE A from asc and uncontrolled descent - Goals Goal 1:: Patient will be I with HEP and progression Goal Time Frame: 4-6 Weeks Goal 2:: Patient will ambulate >300 feet with a normalized gait pattern and LRD Goal Time Frame: 4-6 Weeks Goal 3:: Patient reginald asc/desc 8 stairs recip with 1 HR and good technique Goal Time Frame: 4-6 Weeks Goal 4:: Patient will maintain proper posture t/o tx session to demo increased core s/s. Goal Time Frame: 4-6 Weeks - Rehabilitation Potential Physical Therapy Diagnosis: Patient presents with hypomobility- she has decreased strength, flex and muscular endurance leading abnormal gait and increased pain with ADL's. Rehabilitation Potential: Fair - Anticipated Interventions Patient/Client Instruction: Educate patient on: Benefits of Fitness Program Therapeutic Exercise to Include: Strength training, Endurance training, Balance training, Body mechanics, Postural training, Flexibilty training, Gait and locomotor training, Dynamic Lumbar Stabilization For the Purpose of:: To improve muscle performance and motor function TENS: Yes Cryotherapy (ice pack, ice massage): Yes Thermo therapy (hot pack): Yes Ultrasound (thermal/non thermal): Yes For the Purpose of:: To decrease pain Thank you for the opportunity to evaluate your patient. For Medicare and Medicare HMO plans, please review the plan of care and approve it. It will need to be FAXED BACK to us at [phone] for Medicare purposes. For Medicare only, by signing this I certify the plan of care. Please let me know if there are questions or concerns regarding this plan of care. 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 PRIORS: Transcranial Doppler posterior circulation 12-7-17 BASILAR mean(cm/sec) 29 PI 1.32 Insonation from 80 to 114 mm INTRACRANIAL VERTEBRAL ARTERIES LVA mean(cm/sec) 15 PI 1.4 RVA mean(cm/sec) 20 PI 1.37 EXTRACRANIAL VERTEBRAL ARTERIES LVA mean(cm/sec) Origin 18 Proximal 19 Mid 14 Distal 17 RVA mean(cm/sec) Origin 24 Proximal 22 Mid 24 Distal 18 LEFT SUBCLAVIAN PSV(cm/sec) Proximal 157 RIGHT SUBCLAVIAN PSV (cm/sec) Proximal 149 Technologist: Kristel Davis RVT RDMS IMPRESSION: Technically difficult study due to patient's difficulty tolerating the exam. Today's exam is essentially unchanged when compared to the prior transcranial Doppler posterior circulation dated 07-04-17. The mean flow velocities of the basilar artery and bilateral intracranial vertebral arteries are within normal limits for age. The basilar artery could not be examined distally. There is no significant variation in velocities along the measured length of the visualized basilar trunk to correlate to the severe stenosis in the mid basilar trunk on DSA. The pulsatility indices are slightly elevated which is consistent with distal disease or occlusion, this is an unchanged finding from prior exams. The extracranial vertebral arteries are patent and demonstrate antegrade flow bilaterally. The proximal subclavian arteries are unremarkable bilaterally. Furniture Assembly Supervisor: PSCB Transcribe Date/Time: Aug 07 2018 12:12P Dictated by : MAURILIO HEATH MD This examination was interpreted and the report reviewed and electronically signed by: MAURILIO HEATH MD on Aug 07 2018 5:44PM EST [id number] INITAL EVALUATION (1) Observed: 07/31/2018 Status: F Source: [place] - PT 2:57 PM [facility] REPOSITORY [facility] Physical Therapy [facility] [address] [place] [address] Rd[address] [place] [address] / REHABILITATION SERVICES INITIAL EVALUATION MR#: [id number] Acct: [id number] Name: MARICRUZ GRIGSBY Rep #: [id number] : 1940 78 From: Eugenio Correa DPT Referring Dr.: Doris Navarro DO Status: REG RCR Insurance: MEDICARE PART A B SELF PAY INSURANCE Patient's Visit Information MARICRUZ CRUZ is a 78 year old F referred to Physical Therapy by Doris Navarro DO with a diagnosis of Bilateral sciatica. Date of Evaluation: 06/27/18 Physical Therapist: Eugenio Correa DPT - Visit Plan Frequency: 2x /Week Duration: 4 Weeks Plan: Start with flexion based exercises, may use US to reduce symptoms. Include light TA contraction exercises as tolerated. I mentioned aquatic therapy to patient, but was not interested at this point in time. - Subjective Findings: Pt. is here today for her initial evaluation with diagnosis of Bilateral sciatica. Pt. reports having increased pain for 5-6 weeks now, go down both of her legs. Pt. reports increased pain with standing, decreased pain with sitting. Pt. describes pain at lumbar spine and going down her legs, to the back of her knees. Pt. reports she has had these symptoms in the past, but alleviated wtih quickly. This time is not having the same progress. Pt. has not tiraled any exercises, but sits a lot to reduce pain. Pt. is hopeful to improve her symptoms in order to get back to all recreational and household activities without limitations. - Pain Lumbar spine Pain Intensity (Out of 10): 4 Pain Intensity Range: 2, 8 - Objective POSTURE: Pt. has flexed posture. Rounded shoulders, FH posture. Pt. has equal ilaic crest heights, no marked lateral shift. PALPATION: Pt. has increased tenderness along lumbar spine and into gluteal region. Mild increase in symptoms with spring testing in SL to L2-L5, hypomobility noted throughout. NEURO: normal sensation, normal DTR of bilateral LEs. Pt. is able to rise on heels and toes, but did require balance aide to complete. ROM: Flexion- min/mod loss NE, ext max loss increase NW, SB mod loss bilat increase NW bilaterally, rotation mod loss bilat increase NW. Pt. has tight HS bilaterally. MMT: RLE- ankle 5/5 throughout; knee- ext 4+/5, flexion 4+/5; hip- flexion 4-/5 increase NW, abd 4/5, ext 4/5. LLE-ankle 5/5 throughout; knee- ext 4+/5, flexion 4+/5; hip- flexion 4-/5 increase NW, abd 4/5, ext 4/5. Core strenth- poor. GAIT: Pt. ambulates without AD, she tends to hold onto things marcos, and PT to stabilize. She is able to ambulate without but reports that she preferes. I mention use of AD, but pt. declined. STAIRS: Pt. is able to neogotiate with step to pattern and heavy use of 2 HR, increase NW. - Goals Goal 1:: Pt. to be with HEP. Goal Time Frame: 4-6 Weeks Goal 2:: Pt. to have increased lumbar ROM withtout increase in symptoms by 25% throughout. Goal Time Frame: 4-6 Weeks Goal 3:: Pt. to walk without increase in symptoms. Goal Time Frame: 4-6 Weeks Goal 4:: Pt. to have increased BLE and core strength increased by 1/2 grade of all effected musculature. Goal Time Frame: 4-6 Weeks Goal 5:: Pt. to sleep throughout the night without increase in symptoms. Goal Time Frame: 4-6 Weeks - Rehabilitation Potential Physical Therapy Diagnosis: Pt. has signs and symptoms consistent with radiating back pain. It appears that she has lower lumbar stenosis from presentation. Pt. appears to have slight benefit from flexion based exercises. Pt. has a very sedentary lifestyle which allow for less postive outcome. Pt. would benefit from PT to increase her strength, ROM and decrease her symptoms. Rehabilitation Potential: Fair - Anticipated Interventions Patient/Client Instruction: Educate patient on: Condition, Plan of Care, Risk Factors, Benefits of Fitness Program For the Purpose of:: To improve decision making, To facilitate caregiver knowledge, To improve self management, To prevent re-injury, To improve ability to perform tasks related to life management, To improve tolerance to ADL's Therapeutic Exercise to Include: Strength training, Power training, Endurance training, Postural training, Flexibilty training, Passive ROM, Active ROM, Dynamic Lumbar Stabilization For the Purpose of:: To decrease pain, To decrease swelling/inflammation, To increase ROM, To improve nutrient delivery to tissue, To increase oxygenation perfusion, To improve muscle performance and motor function, To improve ability to perform ADL's, To improve gait and locomotor functions, To improve health of tissue, To decrease soft tissue restriction, To increase flexibility/ROM Manual Therapy Techniques to Include: Mobilization, Functional dry needling, Soft tissue mobilization For the Purpose of:: To decrease pain, To decrease swelling/inflammation, To increase ROM, To improve nutrient delivery to tissue IF ES: Yes Cryotherapy (ice pack, ice massage): Yes Thermo therapy (hot pack): Yes Ultrasound (thermal/non thermal): Yes For the Purpose of:: To decrease pain, To decrease swelling/inflammation, To increase ROM, To improve nutrient delivery to tissue Thank you for the opportunity to evaluate your patient. For Medicare and Medicare HMO plans, please review the plan of care and approve it. It will need to be FAXED BACK to us at [phone] for Medicare purposes. For Medicare only, by signing this I certify the plan of care. Please let me know if there are questions or concerns regarding this plan of care. Physician Signature: Date: <Electronically signed by Eugenio Correa DPT> 07/31/18 1457 CC: Doris Navarro DO CLS Signed DISCHARGE INSTRUCTION Observed: 07/16/2018 Status: F Source: [place] 4:47 PM [facility] REPOSITORY [facility] Medical Records Department [address] [place] [address] Discharge Instruction 07/16/18 1405 MR#: [id number] Acct: [id number] Name: MARICRUZ GRIGSBY Rep #: [id number] : 1940 78 From: Johnnie Baez MD PCP: Doris Navarro DO Status: DEP ER ED Disposition - Plan for ED Patient: Disposition: Home or Assisted Living Chief Complaint: Nausea/Vomiting/Diarrhea Instructions: ED Gastroenteritis Viral Prescriptions: Ondansetron [Zofran Odt] 4 mg PO Q8H PRN PRN #7 tab PRN Reason: Nausea Referrals: Doris Navarro DO [Primary Care Provider] - 1-2 Days if not improving Additional Instructions: Plenty of fluids and rest. Increase diet slowly. Zofran as needed for nausea. Follow-up with your doctor if not improving or return to ER if feeling worse. What to do if you have Problems For any increased pain, shortness of breath, bleeding, nausea or vomiting, chest pain, or any unexpected problems, contact your Primary Care Provider. Call [facility] ([phone]) or report to the closest Emergency Room. Call 911 if necessary. 07/16/18 1647 <Electronically signed by Johnnie Baez MD> Date Johnnie Baez MD Cosigner Signature (If Indicated): Date CC: Doris Navarro DO EMERGENCY DEPARTMENT Observed: 07/16/2018 Status: F Source: [place] SUMMARY 4:47 PM [facility] REPOSITORY [facility] Medical Records Department [address] [place] [address] Emergency Department Summary 07/16/18 1249 MR#: [id number] Acct: [id number] Name: MARICRUZ GRIGSBY Rep #: [id number] : 1940 78 From: Johnnie Baez MD PCP: Doris Navarro DO Status: DEP ER - ER Visit Summary Date of Service: 07/16/18 Chief Complaint: Nausea, vomiting and diarrhea. History of Present Illness: The patient is a 78 F past medical history of prior stroke, hypertension gil-regdhdh-qphxvdjgo diabetes. Patient states last 3-4 days she has had nausea, vomiting diarrhea. Minimal abdominal cramping. No hematemesis or melena. No significant abdominal pain. No dysuria. No fever. Physical Examination: Appearing older female. Vital signs are stable. She is afebrile. She does not look septic or toxic. HEENT exam mildly dry mucous membranes. Otherwise unremarkable. No facial droop. Normal speech. Neck nontender. No lymphadenopathy. Lungs clear to auscultation bilaterally. Heart regular rhythm rate about 100 no murmur. Abdomen soft. Nondistended. Normal bowel sounds. No peritoneal signs. Both the right upper right lower quadrant unremarkable. No hernias or masses. No signs of obstruction. Patient is moving all 4 extremities. Neurologically she is awake and alert with no focal motor deficits. Back exam nontender. Skin unremarkable. Test Results: CBC shows a white count of 9. Hemoglobin of 12. Electrolytes unremarkable BUN of 16 creatinine 1 efficiency. Emergency Department Course and Treatment: Older female with nausea, vomiting diarrhea suspect secondary to viral gastroenteritis. Treated with IV fluids and IV Zofran. Screening labs obtained. Repeat exam patient is doing well. She has been able to drink p.o. fluids. Abdomen is benign. She is feeling better. Treatment Plan: Zofran for nausea. Fluids and rest. Increase diet slowly. Disposition: Discharge Impression: Acute nausea, vomiting diarrhea secondary to viral gastroenteritis History of cmd-jixbhzx-suhgisazg diabetes. This note was generated with [employer] dictation software. It may contain incorrect words, spelling, and punctuation that were not noted in review of the chart prior to signing ED Disposition - Plan for ED Patient: Chief Complaint: Nausea/Vomiting/Diarrhea Referrals: Doris Navarro, DO [Primary Care Provider] - What to do if you have Problems For any increased pain, shortness of breath, bleeding, nausea or vomiting, chest pain, or any unexpected problems, contact your Primary Care Provider. Call [facility] ([phone]) or report to the closest Emergency Room. Call 911 if necessary. 07/16/18 5167 <Electronically signed by Johnnie Baez MD> Date Johnnie Baez MD Cosigner Signature (If Indicated): Date CC: Doris Navarro DO CBC W/DIFF, AUTOMATED Collected: 07/16/2018 Status: F Source: [place] 12:55 PM [facility] REPOSITORY TYPE CODE TESTS RESULT OUT OF RANGE REFERENCE UNITS LAB L100.1000 4.4-11.0 K/mm3 Normal WBC 9.1 LAB L100.1200 4.2-5.4 M/mm3 Low RBC 4.19 LAB L100.1300 12.0-15.0 g/dl Normal HGB 12.3 LAB L100.1400 37-47 % Normal HCT 37.6 LAB L100.1500 81-99 fL Normal MCV 89.7 LAB L100.1600 27.0-32.0 pg Normal MCH 29.4 LAB L100.1700 32-36 g/gl Normal MCHC 32.7 LAB L100.1810 11.6-14.6 % Normal RDW CV 14.1 LAB L100.1820 35.1-43.9 fl High RDW SD 45.5 LAB L100.1900 150-450 K/mm3 Normal PLT 256 LAB L100.2000 6.2-12.0 fl Normal MPV 10.3 LAB L100.2100 47-70 % High NEUT% 83.2 LAB L100.2200 19-41 % Low LY% 10.8 LAB L100.2300 0-10 % Normal MONO% 4.4 LAB L100.2400 0-5 % Normal EO% 1.2 LAB L100.2500 0-1 % Normal BASO% 0.2 LAB L100.2550 0.0-0.9 % Normal IM GRAN % 0.200 Result Comment: IG% - Immature Granulocytes (promyelocytes, myelocytes and metamyelocytes) > 1% indicates that a LEFT SHIFT is Present. LAB L100.2620 2.0-7.7 X10 3/uL Normal Absolute Neut 7.6 LAB L100.2720 0.83-4.51 X10 3/ul Normal Absolute Lymph 0.98 Performed By: #### L100.0100 #### [facility] [address] [place], [address] BASIC METABOLIC Collected: 07/16/2018 Status: F Source: [place] PROFILE (BMP) 12:55 PM [facility] REPOSITORY TYPE CODE TESTS RESULT OUT OF RANGE REFERENCE UNITS LAB L501.0100 74-106 mg/dL High GLU 196 Result Comment: Fasting Glucose result greater than or equal to 126 mg/dL suggests DIABETES MELLITUS per A.D.A. criteria. Please note revised GLUCOSE reference range effective 2017. LAB L501.1000 7-18 mg/dL Normal BUN 16 LAB L501.1100 0.55-1.02 mg/dL High CREAT,SERUM 1.45 Result Comment: The validity of the calculated GFR AND GFRAA in patients over 70 years has not been determined. Clinical correlation is essential. LAB L501.1110 >60 mL/min Low EST GFR 37 Result Comment: Non- GFR Calc LAB L501.1115 >60 mL/min Low EST GFR - AA 45 Result Comment: GFR Calc LAB L501.1255 ml/min Normal Estimated CRCL 29.24 LAB L501.1300 10-20 RATIO Normal BUN/CRE 11.0 LAB L501.2200 8.5-10 mg/dL Normal .1 CA 9.5 LAB L501.5300 136-14 mmol/L Normal 5 NA 142 LAB L501.5600 3.5-5. mmol/L Normal 1 K 3.7 LAB L501.5900 98-107 mmol/L Normal CL 104 LAB L501.6100 21.0-3 mmol/L Normal 2.0 CO2 25.0 LAB L501.6200 5-15 Normal GAP 13 Performed By: #### L500.2500 #### [facility] [address] [place], [address] L/S SPINE MIN 4 Observed: 06/24/2018 Status: F Source: [place] VIEWS 2:13 PM [facility] REPOSITORY [facility] Imaging Services [address] [place] [address] L/S Spine Min 4 Views MR#: [id number] Acct: [id number] Name: MARICRUZ GRIGSBY Rep #: [id number] : 1940 F 78 From: Mack Soni MD PCP: Doris Navarro DO Status: REG CLI Study: L/S Spine Min 4 Views Date of Exam: 06/24/18 Exam# [id number] Ordering Dr: Doris Navarro DO STUDY: X-RAY [...] Service support , CC: Doris Navarro DO Furniture Assembly Supervisor: Signed EMERGENCY DEPARTMENT Observed: 05/14/2018 Status: F Source: [place] SUMMARY 3:30 PM [facility] REPOSITORY [facility] Medical Records Department [address] [place] [address] Emergency Department Summary 05/14/18 0908 MR#: [id number] Acct: [id number] Name: MARICRUZ GRIGSBY Rep #: [id number] : 1940 78 From: Zee Denise MD [...] her family doctors she is referred to [facility] for the shoulder injury and she will return for change in symptoms and she is comfortable with this plan Treatment Plan: [] Disposition: [] Stable home Impression: [] Fall left rib fracture, left shoulder injury This note was generated with [employer] dictation software. It may contain incorrect words, [...] your Primary Care Provider. Call [facility] ([phone]) or report to the closest Emergency Room. Call 911 if necessary. 05/14/18 1530 <Electronically signed by Zee Denise MD> Date Zee Denise MD Cosigner Signature (If Indicated): Date CC: Doris Navarro DO DISCHARGE INSTRUCTION Observed: 05/14/2018 Status: F Source: [place] 11:34 AM [facility] REPOSITORY [facility] Medical Records Department [address] [place] [address] Discharge Instruction 05/14/18 1133 MR#: [id number] Acct: [id number] Name: MARICRUZ GRIGSBY Stuart Rep #: [id number] : 1940 78 From: Zee Denise MD PCP: Doris Navarro DO Status: REG ER ED Disposition - Plan for ED Patient: Chief Complaint: Fall Instructions: ED Mechanical Fall, ED Fx Rib, ED Sprain Shoulder, ED Sling Prescriptions: Hydrocodone Bitart/Apap 5-325 [[place] 5MG-325MG] 1 tab PO Q6H PRN PRN 3 Days #10 tab PRN Reason: Pain Referrals: Doris Navarro, [Primary Care Provider] - What to do if you have Problems For any increased pain, shortness of breath, bleeding, nausea or vomiting, chest pain, or any unexpected problems, contact your Primary Care Provider. Call [facility] ([phone]) or report to the closest Emergency Room. Call 911 if necessary. 05/14/18 1134 <Electronically signed by Zee Denise MD> Date Zee Denise MD Cosigner Signature (If Indicated): Date CC: Doris Navarro DO CHEST PA AND LATERAL Observed: 05/14/2018 Status: F Source: [place] 8:58 AM [facility] REPOSITORY [facility] Imaging Services [address] [place] [address] Chest PA and Lateral MR#: [id number] Acct: [id number] Name: MARICRUZ GRIGSBY Rep #: [id number] : 1940 F 78 From: Teo Garrido MD PCP: Doris Navarro DO Status: REG ER Study: Chest PA and Lateral Date of Exam: 05/14/18 Exam# [id number] Ordering Dr: Zee Denise MD STUDY: X-RAY [...] Teo Garrido MD at 10:11 EDT Tel [phone], Service support , CC: MD Sonam Denise; Doris Navarro DO Furniture Assembly Supervisor: Signed ELBOW MIN 3 VIEWS Observed: 05/14/2018 Status: F Source: [place] 8:58 AM [facility] REPOSITORY [facility] Imaging Services [address] [place] [address] Elbow min 3 Views MR#: [id number] Acct: [id number] Name: CLIFFORD CRUZMARICRUZ Rep #: [id number] : 1940 F 78 From: Teo Garrido MD PCP: Doris Navarro DO Status: REG ER Study: Elbow min 3 Views Date of Exam: 05/14/18 Exam# [id number] Ordering Dr: Zee Denise MD STUDY: X-RAY [...] Teo Garrido MD at 10:12 EDT Tel [phone], Service support , CC: MD Sonam Denise; Doris Navarro DO Furniture Assembly Supervisor: Signed SHOULDER MIN 2 VIEWS Observed: 05/14/2018 Status: F Source: [place] 8:58 AM [facility] REPOSITORY [facility] Imaging Services [address] [place] [address] Shoulder min 2 Views MR#: [id number] Acct: [id number] Name: MARICRUZ GRIGSBY Rep #: [id number] : 1940 F 78 From: Teo Garrido MD PCP: Doris Navarro DO Status: REG ER Study: Shoulder min 2 Views Date of Exam: 05/14/18 Exam# [id number] Ordering Dr: Zee Denise MD STUDY: X-RAY [...] Teo Garrido MD at 11:02 EDT Tel [phone], Service support , CC: MD Sonam Denise; Doris Navarro DO Furniture Assembly Supervisor: Signed 12 LEAD ELECTROCARDIOGRAM Observed: 2018 Status: F Source: [place] 2:13 PM [facility] REPOSITORY [facility] Cardiovascular Services [address] [place] [address] 12 Lead EKG 02/06/18 1825 MR#: [id number] Acct: [id number] Name: MARICRUZ GRIGSBY Rep #: [id number] : 1940 77 From: Jason Barth MD Attending Dr: Lance Messina DO Status: DIS DEEPAK Ordering Dr: Jered Marte MD Date: 02/06/18 Location: [facility] Sex: F C Admitted: 02/06/18 Test Reason : HEADACHE Blood Pressure : / mmHG Vent. Rate : 064 BPM Atrial Rate : 064 BPM P-R Int : 204 ms QRS Dur : 088 ms QT Int : 410 ms P-R-T Axes : 040 -23 071 degrees QTc Int : 422 ms Normal sinus rhythm Normal ECG Confirmed by JASON BARTH MD ([id number]), editorial cartoonist STACY CARTER ([id number]) on 2018 2:12:44 PM Referred By: RON Confirmed By:JASON BARTH MD 02/11/18 1412 Date Jason Barth MD CC: Doris Mleanie DO; Lnace Messina DO; Jered Marte Signed LIVER PROFILE Collected: 02/10/2018 Status: F Source: [place] 8:44 AM [facility] REPOSITORY Order Comment: Comments: ANTI-LIVER/KIDNEY MICRO AB [id number] SER/RF TYPE CODE TESTS RESULT OUT OF [...] BILI 0.17 Performed By: #### L500.3400, L501.5100, L501.86217, L501.9520, L503.6550, L506.0400 #### [facility] [address] [facility] [place], [address] GGTP Collected: 02/10/2018 Status: F Source: [place] 8:44 AM [facility] REPOSITORY Order Comment: Comments: ANTI-LIVER/KIDNEY MICRO AB [id number] SER/RF TYPE CODE TESTS RESULT OUT OF RANGE REFERENCE UNITS LAB L501.5100 5-55 U/L High GGTP 64 Performed By: #### L500.3400, L501.5100, L501.45899, L501.9520, L503.6550, L506.0400 #### [facility] [address] [facility] [place], [address] FREE T3 Collected: 02/10/2018 Status: F Source: [place] 8:44 AM [facility] REPOSITORY Order Comment: Comments: ANTI-LIVER/KIDNEY MICRO AB [id number] SER/RF TYPE CODE TESTS RESULT OUT OF RANGE REFERENCE UNITS LAB L501.12538 2.18-3.98 pg/mL Low FREE T3 1.6 Performed By: #### L500.3400, L501.5100, L501.84197, L501.9520, L503.6550, L506.0400 #### [facility] [address] [place], [address] THYROID STIM HORMONE Collected: 02/10/2018 Status: F Source: [place] (TSH) 8:44 AM [facility] REPOSITORY Order Comment: Comments: ANTI-LIVER/KIDNEY MICRO AB [id number] SER/RF TYPE CODE TESTS RESULT OUT OF RANGE REFERENCE UNITS LAB L501.9520 0.358-3.74 uIU/mL High TSH 16.40 Performed By: #### L500.3400, L501.5100, L501.22446, L501.9520, L503.6550, L506.0400 #### [facility] [address] [place] [address]. [place], [address] FERRITIN Collected: 02/10/2018 Status: F Source: [place] 8:44 AM [facility] REPOSITORY Order Comment: Comments: ANTI-LIVER/KIDNEY MICRO AB [id number] SER/RF TYPE CODE TESTS RESULT OUT OF RANGE REFERENCE UNITS LAB L503.6550 8-252 ng/mL Normal FERRITIN 236 Performed By: #### L500.3400, L501.5100, L501.57408, L501.9520, L503.6550, L506.0400 #### [facility] [address] [place], [address] T4 FREE DIRECT Collected: 02/10/2018 Status: F Source: [place] 8:44 AM [facility] REPOSITORY Order Comment: Comments: ANTI-LIVER/KIDNEY MICRO AB [id number] SER/RF TYPE CODE TESTS RESULT OUT OF RANGE REFERENCE UNITS LAB L506.0400 0.76-1.46 ng/dL Normal T4 FREE 1.06 DIRECT Performed By: #### L500.3400, L501.5100, L501.00212, L501.9520, L503.6550, L506.0400 #### [facility] [address] [place], [address] ANTI-MITOCHONDRIAL AB Collected: Status: F Source: [place] 02/10/2018 8:44 AM [facility] REPOSITORY TYPE CODE TESTS RESULT [...] Status: F Source: [place] DIRECT 8:44 AM [facility] REPOSITORY TYPE CODE TESTS RESULT OUT OF RANGE REFERENCE UNITS LAB L3100.5475 Negative Normal Negative MELI-DIRECT Result Comment: Performed at: [facility] [id number] [place] Mechanic: Constantine Christianson PhD, Phone: [phone] Performed By: #### L800.1280, L3100.5475 #### [facility] (refer to report for specific site) refer to report for address and phone number ANTI-SMOOTH MUSCLE ABS Collected: 02/10/2018 Status: F Source: [place] 8:44 AM [facility] REPOSITORY Order Comment: Comments: ANTI-LIVER/KIDNEY MICRO AB [id number] SER/RF TYPE CODE TESTS RESULT OUT OF [...] PANEL ACUTE Collected: 02/10/2018 Status: F Source: [place] 8:44 AM [facility] REPOSITORY Order Comment: Comments: ANTI-LIVER/KIDNEY MICRO AB [id number] SER/RF TYPE CODE TESTS RESULT OUT OF RANGE REFERENCE UNITS LAB L3100.0200 Negative Normal HEP A Negative IgM 6734 LAB L3100.0400 Negative Normal HB Negative SURF AG LAB L3100.0440 Negative Normal HB Negative CORE [id number] LAB L3100.0650 0.0-0.9 s/co ratio Normal HEP C <0.1 AB Result Comment: Negative: < 0.8 Indeterminate: 0.8 - 0.9 Positive: > 0.9 The CDC recommends that a positive HCV antibody result be followed up with a HCV Nucleic Acid Amplification test (992289). Performed By: #### L803.2200, L3000.0375, L3400.0700, L3400.1500, L3400.3800 #### [facility] (refer to report for specific site) refer to report for address and phone number CERULOPLASMIN Collected: 02/10/2018 Status: F Source: [place] 8:44 AM [facility] REPOSITORY Order Comment: Comments: ANTI-LIVER/KIDNEY MICRO AB [id number] SER/RF TYPE CODE TESTS RESULT OUT OF RANGE REFERENCE UNITS LAB L3400.0700 19.0-39.0 mg/dL Normal CERULOPLAS 1560 22.0 Performed By: #### L803.2200, L3000.0375, L3400.0700, L3400.1500, L3400.3800 #### [facility] (refer to report for specific site) refer to report for address and phone number CMV ACUTE ANTIBODY Collected: 02/10/2018 Status: F Source: [place] IGM 8:44 AM [facility] REPOSITORY Order Comment: Comments: ANTI-LIVER/KIDNEY MICRO AB [id number] SER/RF TYPE CODE TESTS RESULT OUT OF [...] 02/10/2018 Status: F Source: [place] 8:44 AM [facility] REPOSITORY Order Comment: Comments: ANTI-LIVER/KIDNEY MICRO AB [id number] SER/RF TYPE CODE TESTS RESULT OUT OF RANGE REFERENCE UNITS LAB L3400.3800 200-370 mg/dL Normal TRANSFERRN 4937 250 Result Comment: Performed at: [address] [id number] [place] Mechanic: Constantine Christianson PhD, Phone: [phone] Performed By: #### L803.2200, L3000.7135, L3400.0700, L3400.1500, L3400.3800 #### [facility] (refer to report for specific site) refer to report for address and phone number MISCELLANEOUS LAB Collected: 02/10/2018 Status: F Source: [place] PROCEDURE 8:44 AM [facility] REPOSITORY Order Comment: Comments: ANTI-LIVER/KIDNEY MICRO AB [id number] SER/RF Test(s) Ordered: ANTI-LIVER/KIDNEY MICROS AB [id number] SER/RF TYPE CODE TESTS RESULT OUT OF RANGE REFERENCE UNITS LAB L801.1541 Normal [facility] LAB TEST Result Comment: TEST RESULT UNITS REF INTERVAL Liver-Kidney Microsomal Ab <1.0 Units 0.0 - 20.0 Negative 0.0 - 20.0 Equivocal 20.1 - 24.9 Positive >24.9 LKM type 1 antibodies are detected in patients with autoimmune hepatitis type 2 and in up to 8% of patients with chronic HCV infection. TESTING PERFORMED AT [facility]. ORIGINAL REPORT ON FILE IN LAB CONTAINS ADDITIONAL TEST SITE INFORMATION. Performed By: #### L801.1541 #### [place] [facility] [address] [place], [address] CAROTID DUPLEX Observed: 02/08/2018 Status: F Source: [place] ULTRASOUND 10:31 AM [facility] REPOSITORY [facility] Cardiovascular Services [address] [place] [address] Carotid Duplex Ultrasound 02/07/18 0840 MR#: [id number] Acct: [id number] Name: MARICRUZ GRIGSBY Rep #: [id number] : 1940 77 From: Mehran Damon MD [...] the left vertebral artery. Procedure Carotid Duplex 04318. Exam performed portable in patient room. Interpretation [...] Dictated: 02/07/18 0840 Date Transcribed: 02/08/18 1030 Furniture Assembly Supervisor: Signed DISCHARGE SUMMARY Observed: 02/07/2018 Status: F Source: [place] 5:15 PM [facility] REPOSITORY [facility] Medical Records Department [address] [place] [address] Discharge Summary 02/07/18 1710 MR#: [id number] Acct: [id number] Name: MARICRUZ GRIGSBY Rep #: [id number] : 1940 77 From: Lance Messina DO PCP: Doris Navarro DO Status: DIS DEEPAK Y Location: [place] [id number] Discharge Date and Diagnosis Date of Admission: [...] was seen in the emergency room at [facility] with chief complaint of double vision. She [...] Rod Melendrez MD When: in 2-3 weeks [phone] Disposition: Home Minutes spent on discharge:: 25 Patient Condition:: Stable Medical Necessity - Tobacco Use Smoking Status: Never smoker Meaningful Use Info Meaningful Use Diagnoses (Choose all that apply): None applicable Code Visit OBSV E AND M: 29227 Observation care discharge 02/07/18 1715 <Electronically signed by Lance Messina DO> Date Lance Messina DO Cosigner Signature (if applicable): Date CC: Doris Navarro DO; Lance Messina DO Signed DISCHARGE INSTRUCTION Observed: 02/07/2018 Status: F Source: [place] 4:42 PM [facility] REPOSITORY [facility] Medical Records Department [address] [place] [address] Instructions for Home/Discharge Instructions 02/07/18 1639 MR#: [id number] Acct: [id number] Name: CLIFFORD CRUZMARICRUZ Stuart Rep #: [id number] : 1940 77 From: Lance Messina DO [...] Rod Melendrez MD When: in 2-3 weeks [phone] 02/07/18 1642 <Electronically signed by Lance Messina DO> Date Lance Messina DO CC: Doris Navarro DO; Rod Melendrez MD BEDSIDE GLUCOSE Collected: 02/07/2018 Status: F Source: [place] 4:12 PM [facility] REPOSITORY TYPE CODE TESTS RESULT OUT OF REFERENCE UNITS RANGE LAB L501.080 70-110 mg/dL High BEDSIDE GLU 165 Result Comment: Dr Vincent Followed Insulin Given MANAGEMENT OF PATIENT CARE PER NURSING PROTOCOL Performed By: #### L501.080 #### [facility] Point of Care [address] [place] [address] [facility] COMBINATION WELDER APPRENTICE AB, Collected: 02/07/2018 Status: F Source: [place] BLOCKING 12:58 PM [facility] REPOSITORY TYPE CODE TESTS RESULT OUT OF RANGE REFERENCE UNITS LAB L3410.0100 0-25 % Normal [facility] REC 11 [address] Result Comment: Negative: 0 - 25 Borderline: 26 - 30 Positive: >30 Results for this test are for research purposes only by the assay's mixed animal veterinarian. The performance characteristics of this product have not been established. Results should not be used as a diagnostic procedure without confirmation of the diagnosis by another medically established diagnostic product or procedure. Performed By: #### L3410.0100, L3410.0200 #### [facility] (refer to report for specific site) refer to report for address and phone number [facility] AB MODULATING Collected: 02/07/2018 Status: F Source: [place] 12:58 PM [facility] REPOSITORY TYPE CODE TESTS RESULT OUT OF RANGE REFERENCE UNITS LAB L3410.0200 0-20 % Normal [facility] AB <12 [address]1072 Result Comment: Negative: <21 Equivocal: 21 - 25 Positive: >25 The assay is linear between values of 12 and 64. Those <12 and >64 are reported as such. No single value for ACR-modulating antibody should be used as a sole basis for diagnosis or response to therapy. Performed at: [address] [id number] [place] Mechanic: Frantz Josue MD, Phone: [phone] Performed By: #### L3410.0100, L3410.0200 #### [facility] (refer to report for specific site) refer to report for address and phone number ECHOCARDIOGRAM COMPLETE Observed: 02/07/2018 Status: F Source: [place] 12:22 PM [facility] REPOSITORY [facility] Cardiovascular Services [address] [place] [address] Echo Complete 02/07/18 1102 MR#: [id number] Acct: [id number] Name: MARICRUZ GRIGSBY Rep #: [id number] : 1940 77 From: Jason Barth MD Attending Dr: Lance Messina DO Status: ADM DEEPAK Ordering Dr: María Barnes MD Date: 02/06/18 Location: [facility] Sex: F C Admitted: 02/06/18 Reason For [...] DO; Lance Messina DO Date Dictated: 02/07/18 1102 Date Transcribed: 02/07/18 1221 Furniture Assembly Supervisor: Signed BEDSIDE GLUCOSE Collected: 02/07/2018 Status: F Source: [place] 11:25 AM [facility] REPOSITORY TYPE CODE TESTS RESULT OUT OF REFERENCE UNITS RANGE LAB L501.080 70-110 mg/dL High BEDSIDE GLU 224 Result Comment: MANAGEMENT OF PATIENT CARE PER NURSING PROTOCOL Performed By: #### L501.080 #### [facility] Point of Care [address] [place], [place] [address] BEDSIDE GLUCOSE Collected: 02/07/2018 Status: F Source: [place] 6:44 AM [facility] REPOSITORY TYPE CODE TESTS RESULT OUT OF REFERENCE UNITS RANGE LAB L501.080 70-110 mg/dL High BEDSIDE GLU 161 Result Comment: MANAGEMENT OF PATIENT CARE PER NURSING PROTOCOL Performed By: #### L501.080 #### [facility] Point of Care [address] [place] [address] LIPID PROFILE Collected: 02/07/2018 Status: F Source: [place] 5:10 AM [facility] REPOSITORY TYPE CODE TESTS RESULT [...] VLDL 47 Performed By: #### L500.4100 #### [facility] [address] [facility] [place], [address] EMERGENCY DEPARTMENT Observed: 02/07/2018 Status: F Source: [place] SUMMARY 12:12 AM [facility] REPOSITORY [facility] Medical Records Department [address] [place] [address] Emergency Department Summary 02/06/182020 MR#: [id number] Acct: [id number] Name: MARICRUZ GRIGSBY Rep #: [id number] : 1940 77 From: Jered Marte MD [...] 1. Diplopia This note was generated with [employer] dictation software. It may contain incorrect words, spelling, and punctuation that were not noted in review of the chart prior to signing ED Disposition - Plan for ED Patient: Chief Complaint: Headache Referrals: Doris Navarro, DO [Primary Care Provider] - What to do if you have Problems For any increased pain, shortness of breath, bleeding, nausea or vomiting, chest pain, or any unexpected problems, contact your Primary Care Provider. Call [facility] ([phone]) or report to the closest Emergency Room. Call 911 if necessary. 02/07/18 0012 <Electronically signed by Jered Marte MD> Date Jered Soriaigner Signature (If Indicated): Date CC: Doris Navarro DO BEDSIDE GLUCOSE Collected: 02/06/2018 Status: F Source: [place] 11:02 PM [facility] REPOSITORY TYPE CODE TESTS RESULT OUT OF REFERENCE UNITS RANGE LAB L501.080 70-110 mg/dL High BEDSIDE GLU 145 Result Comment: MANAGEMENT OF PATIENT CARE PER NURSING PROTOCOL Performed By: #### L501.080 #### [facility] Point of Care [address] [facility] [place] [address] BRAIN WITHOUT Observed: 02/06/2018 Status: F Source: [place] CONTRAST 9:54 PM [facility] REPOSITORY [facility] Imaging Services [address] [place] [address] Brain without Contrast MR#: [id number] Acct: [id number] Name: MARICRUZ GRIGSBY Rep #: [id number] : 1940 F 77 From: Darby Franco PCP: Doris Navarro DO Status: ADM DEEPAK Study: Brain without Contrast Date of Exam: 02/07/18 Exam# [id number] Ordering Dr: María Barnes MD STUDY: MRI [...] , CC: María Barnes; Doris Navarro DO Furniture Assembly Supervisor: Signed HISTORY AND PHYSICAL Observed: 02/06/2018 Status: F Source: [place] EXAM 9:09 PM [facility] REPOSITORY [facility] Medical Records Department [address] [place] [address] History and Physical 02/06/182050 MR#: [id number] Acct: [id number] Name: MARICRUZ GRIGSBY Rep #: [id number] : 1940 77 From: María Barnes MD [...] cholecystectomy Psychiatric History: No pertinent psych hx 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 This note was generated with SpaceILation software. It may contain incorrect words, spelling, and punctuation that were not noted in checking the note before signing. Code Visit OBSV E AND M: 28892 Initial observation care L3 02/06/182108 <Electronically signed by María Barnes MD> Date María Barnes MD Cosigner Signature: Date (if applicable) CC: María Barnes; Doris Navarro DO Signed BEDSIDE GLUCOSE Collected: 02/06/2018 Status: F Source: [place] 6:16 PM [facility] REPOSITORY TYPE CODE TESTS RESULT OUT OF REFERENCE UNITS RANGE LAB L501.080 70-110 mg/dL High BEDSIDE GLU 152 Result Comment: MANAGEMENT OF PATIENT CARE PER NURSING PROTOCOL Performed By: #### L501.080 #### [facility] Point of Care [address] [place] [address] CHEST 1 VIEW Observed: 02/06/2018 Status: F Source: [place] 5:56 PM [facility] REPOSITORY [facility] Imaging Services [address] [place] [address] Chest 1 View MR#: [id number] Acct: [id number] Name: MARICRUZ GRIGSBY Rep #: [id number] : 1940 F 77 From: Renata Lee MD PCP: Doris Navarro DO Status: REG ER Study: Chest 1 View Date of Exam: 02/06/18 Exam# [id number] Ordering Dr: Jered Marte MD STUDY: X-RAY [...] , CC: Doris Navarro DO; Jered Marte Furniture Assembly Supervisor: Signed BRAIN/HEAD WITHOUT Observed: 02/06/2018 Status: F Source: [place] CONTRAST 5:56 PM [facility] REPOSITORY [facility] Imaging Services [address] [place] [address] Brain/Head without Contrast MR#: [id number] Acct: [id number] Name: CLIFFORD CRUZMARICRUZ Stuart Rep #: [id number] : 1940 F 77 From: Renata Lee MD PCP: Doris Navarro DO Status: REG ER Study: Brain/Head without Contrast Date of Exam: 02/06/18 Exam# [id number] Ordering Dr: Jered Marte MD STUDY: CT [...] , CC: Doris Navarro DO; Jered Marte Furniture Assembly Supervisor: Signed BASIC METABOLIC Collected: 02/06/2018 Status: F Source: [place] PROFILE (BMP) 5:45 PM [facility] REPOSITORY TYPE CODE TESTS RESULT [...] 8 Performed By: #### L500.2500, L501.4010 #### [facility] [address] [place], [address] TROPONIN-I Collected: 02/06/2018 Status: F Source: [place] 5:45 PM [facility] REPOSITORY TYPE CODE TESTS RESULT OUT OF RANGE REFERENCE UNITS LAB L501.4010 <0.045 ng/mL Normal < 0.015 TROPONIN-I Result Comment: TROPONIN-I EXPECTED VALUES <0.045 Negative 0.045 - 0.590 Consistent with Cardiac Damage > OR = 0.600 Critical Value Not every elevated troponin is indicative of LA. These values should be used with clinical judgement in examining the patient's clinical picture for diagnosis. To establish a diagnosis of LA versus myocardial injury, there must be a demonstrated rise and/or fall in the troponin values, in addition to ischemic symptoms, EKG changes, new regional wall motion abnormality, and/or angiographical evidence. PLEASE NOTE: REFERENCE RANGES EDITED 17 Performed By: #### L500.2500, L501.4010 #### [facility] [address] [facility] [place], [address] PROTHROMBIN TIME W/INR Collected: 02/06/2018 Status: F Source: [place] 5:45 PM [facility] REPOSITORY TYPE CODE TESTS RESULT OUT OF RANGE REFERENCE UNITS LAB L300.4150 11.7-14.9 SECONDS Normal PROTIME 12.5 LAB L300.4200 Normal INR 0.9 Performed By: #### L300.3900, L300.4310 #### [facility] [address] [facility] [place], [address] PARTIAL THROMBOPLAST Collected: 02/06/2018 Status: F Source: [place] TIME 5:45 PM [facility] REPOSITORY TYPE CODE TESTS RESULT OUT OF RANGE REFERENCE UNITS LAB L300.4310 24.1-36.2 Seconds Normal PTT 33.0 Performed By: #### L300.3900, L300.4310 #### [facility] [address] [facility] [place], [address] CBC W/DIFF, AUTOMATED Collected: 02/06/2018 Status: F Source: [place] 5:45 PM [facility] REPOSITORY TYPE CODE TESTS RESULT [...] Lymph 1.73 Performed By: #### L100.0100 #### [facility] [address] [facility] [place], [address] LIVER Observed: 11/25/2017 Status: F Source: [place] 10:35 AM [facility] REPOSITORY [facility] Imaging Services [address] [place] [address] Liver MR#: [id number] Acct: [id number] Name: MARICRUZ GRIGSBY Rep #: [id number] : 1940 F 77 From: Mack Hand MD PCP: Doris Navarro DO Status: REG CLI Study: Liver Date of Exam: 11/25/17 Exam# [id number] Ordering Dr: Doris Navarro DO STUDY: ABDOMINAL [...] 12:34 EDT , Service support , CC: oDris Navarro DO Furniture Assembly Supervisor: Signed HIP 2-3 VIEWS WITH Observed: 10/29/2017 Status: F Source: [place] PELVIS 11:24 AM [facility] REPOSITORY [facility] Imaging Services [address] [place] [address] Hip 2-3 Views with Pelvis MR#: [id number] Acct: [id number] Name: MARICRUZ GRIGSBY Rep #: [id number] : 1940 F 77 From: Benji Finch PCP: Doris Navarro DO Status: REG CLI Study: Hip 2-3 Views with Pelvis Date of Exam: 10/29/17 Exam# [id number] Ordering Dr: Thelma Sofia BALL WINDER-C STUDY: X-RAY - PELVIS AND LEFT HIP [...] , CC: QUINN Sofia; Doris Navarro DO Furniture Assembly Supervisor: Signed 12 LEAD ELECTROCARDIOGRAM Observed: 08/27/2017 Status: F Source: [place] 10:37 AM [facility] REPOSITORY [facility] Cardiovascular Services [address] [place] [address] 12 Lead EKG 08/24/17 1719 MR#: [id number] Acct: [id number] Name: JOSE AMARICRUZ GIANG Rep #: [id number] : 1940 77 From: Maurilio Rowe MD [...] Normal ECG Confirmed by SOLEDAD STREETER, MAURILIO ([id number]), editorial cartoonist STACY CARTER ([id number]) on 08/27/2017 10:37:34 AM Referred By: EITAN Confirmed By:MAURILIO ROWE MD 08/27/17 1037 Date Maurilio Rowe MD CC: Doris Navarro DO Signed EMERGENCY DEPARTMENT Observed: 08/25/2017 Status: F Source: [place] SUMMARY 12:01 AM [facility] REPOSITORY [facility] Medical Records Department [address] [place] [address] Emergency Department Summary 08/24/17 1709 MR#: [id number] Acct: [id number] Name: MARICRUZ GRIGSBY Rep #: [id number] : 1940 77 From: Zee Denise MD [...] at home. She has no history of LA PE or DVT she does have history [...] be altered This note was generated with [employer] dictation software. It may contain incorrect words, [...] your Primary Care Provider. Call [facility] ([phone]) or report to the closest Emergency Room. Call 911 if necessary. 08/25/17 0001 <Electronically signed by Zee Denise MD> Date Zee Denise MD Cosigner Signature (If Indicated): Date CC: Doris Navarro DO DISCHARGE INSTRUCTION Observed: 08/24/2017 Status: F Source: [place] 6:21 PM [facility] REPOSITORY [facility] Medical Records Department [address] [place] [address] Discharge Instruction 08/24/17 1820 MR#: [id number] Acct: [id number] Name: MARICRUZ GRIGSBY Rep #: [id number] : 1940 77 From: Zee Denise MD [...] problems, contact your Primary Care Provider. Call [facility] ([phone]) or report to the closest Emergency Room. Call 911 if necessary. 08/24/17 1821 <Electronically signed by Zee Denise MD> Date Zee Denise MD Cosigner Signature (If Indicated): Date CC: Doris Navarro DO CBC W/DIFF, AUTOMATED Collected: 08/24/2017 Status: F Source: [place] 5:40 PM [facility] REPOSITORY TYPE CODE TESTS RESULT [...] Lymph 1.65 Performed By: #### L100.0100 #### [facility] [address] [place], [address] BASIC METABOLIC Collected: 08/24/2017 Status: F Source: [place] PROFILE ([facility]) 5:40 PM [facility] REPOSITORY Order Comment: 'TROP' Serial [...] 11 Performed By: #### L500.2500, L501.4010 #### [facility] [address] [place], [place], [address] TROPONIN-I Collected: 08/24/2017 Status: F Source: [place] 5:40 PM [facility] REPOSITORY Order Comment: 'TROP' Serial specimen #1, #2, #3, or #4: 1 TYPE CODE TESTS RESULT OUT OF RANGE REFERENCE UNITS LAB L501.4010 <0.06 ng/mL Normal < 0.02 TROPONIN-I Result Comment: TROPONIN-I EXPECTED VALUES <0.05 NEGATIVE 0.06 - 0.59 AT RISK OF LA > OR = 0.60 SUGGEST LA Performed By: #### L500.2500, L501.4010 #### [facility] [address] [place], [place], [address] BNP,B-TYPE NATRIURETIC Collected: 08/24/2017 Status: F Source: [place] PEPTIDE 5:40 PM [facility] REPOSITORY TYPE CODE TESTS RESULT OUT OF RANGE REFERENCE UNITS LAB L503.6620 0-100 pg/mL Normal B-TYPE 13.3 SANJU PEP Performed By: #### L503.6620 #### [facility] [address] [place], [address] CHEST PA AND LATERAL Observed: 08/24/2017 Status: F Source: [place] 5:10 PM [facility] REPOSITORY [facility] Imaging Services [address] [place] [address] Chest PA and Lateral MR#: [id number] Acct: [id number] Name: MARICRUZ GRIGSBY Rep #: [id number] : 1940 F 77 From: Stacy Tapia MD PCP: Doris Navarro DO Status: REG ER Study: Chest PA and Lateral Date of Exam: 08/24/17 Exam# [id number] Ordering Dr: Zee Denise MD XR Chest [...] CC: MD Sonam Denise; Doris Navarro DO Furniture Assembly Supervisor: Signed PROGRESS Observed: 08/24/2017 Status: COMPLETED Source: [place] 4:49 PM [facility] REPOSITORY HNO ID: [id number] Author: Deya To Service: (none) Author Type: [...] of Onset - Coronary Artery Disease Father [place] age 68 - Coronary Artery Disease Mother [place] age 70's - Diabetes mother, sister, mat aunt grndm - Stroke TIA's: mother, sister - Lipids Mother Social History Substance Use Topics - Smoking status: Never Smoker - Smokeless tobacco: Never Used - Alcohol use No ASSESSMENT/PLAN: 1. Respiratory distress - ICD9: 786.09, ICD10: R06.03 Referred to ED for further evaluation and management. Pt and refuse transfer via squad. will drive pt to [place] ED now. The patient is in [facility] CNOV Observed: 08/24/2017 Status: COMPLETED Source: [place] 3:30 PM [facility] REPOSITORY Office Visit (WSTR) MARICRUZ GRIGSBY ([id number]) 1940 F Date Time Provider Department 08/24/17 3:30 PM DEYA TO [facility] [place] During your visit today, we recorded the [...] of Onset - Coronary Artery Disease Father [place] age 68 - Coronary Artery Disease Mother [place] age 70's - Diabetes mother, sister, mat aunt grndm - Stroke TIA's: mother, sister - Lipids Mother Social History Substance Use Topics - Smoking status: Never Smoker - Smokeless tobacco: Never Used - Alcohol use No ASSESSMENT/PLAN: 1. Respiratory distress - ICD9: 786.09, ICD10: R06.03 Referred to ED for further evaluation and management. Pt and refuse transfer via squad. will drive pt to [place] ED now. The patient is in [facility] Referring Provider: SELF [200] Allergies As of [...] Status:Closed by DEYA TO CNP on 08/24/17 ALLERGIES ALLERGIES DATE TYPE / CODE NAME / CODE REACTION SEVERITY SOURCE Drug Penicillins/B759907 Hives Unknown [place] 8 Allergy/251694695( 476(RXNORM) [facility] Hospital Repository Drug guaifenesin/T146979 Unknown Unknown [place] 8 Allergy/268527641( 724(RXNORM) [facility] SNOMED CT) Hospital Repository Drug naproxen/[id number] Hives Unknown [place] 8 Allergy/274206238( (RXNORM) [facility] SNOMED CT) Hospital Repository Drug ketoprofen/R1013215 Unknown Unknown [place] 8 Allergy/896213622( 94(RXNORM) [facility] SNOMED CT) Hospital Repository Drug loracarbef/V5563707 Unknown Unknown [place] 8 Allergy/796070096( 67(RXNORM) [facility] SNOMED CT) Hospital Repository Miscellaneous bee sting Unknown Unknown [place] 8 Allergy/911024219( [facility] SNOMED CT) Hospital Repository Drug CEPHALOSPORINS [place] 0 Class/037309913([facility] OMED CT) [place] Repository Drug PENICILLINS [place] 0 Class/927640066([facility] OMED CT) [place] Repository ENCOUNTERS ENCOUNTERS ADMIT/DISCHARGE ACCOUNT ADMITTING ENCOUNTER LOCATION SOURCE NUMBER CLASS 08/15/2018 [id number] Ambulatory Building:[facility] [place] Practices Repository 08/13/[id number] [facility] ing:PT Repository 08/07/2018/08/07/19 [id number] Ambulatory [address] Repository 08/07/2018/08/07/19 [id number] Ambulatory [address] Repository 07/16/2018/07/16/20 [id number] Emergency [address] ing:ED Repository 06/27/2018/06/27/20 [id number] Ambulatory [address] Hospital ing:PT Repository 06/24/2018 [id number] Ambulatory [facility] Hospital ing:HPRAD Repository 05/14/2018/05/14/20 [id number] Emergency [address] Hospital ing:ED Repository 02/10/2018 [id number] Ambulatory [facility] Hospital ing:LAB Repository 02/07/2018/02/08/20 [id number] Ambulatory BMSBuilding:W [place] [facility] Repository 02/06/2018/02/08/20 [id number] [facility] [place] [facility] ing:PCURoom: Repository [id number]: 1 02/06/2018 [id number] [place] [facility] BMSBuilding:B [place] [facility] Repository 02/06/2018 [id number] Ambulatory BMSBuilding:B [place] [facility] Repository 11/25/[id number] [facility] ing:OPUS Repository 11/20/[id number] [facility] ing:MASS Repository 11/12/2017/11/13/19 [id number] Ambulatory [address] ing:PT Repository 10/29/[id number] [facility] ing:HPRAD Repository 08/24/2017/08/24/19 [id number] Emergency [address] ing:ED Repository 08/24/2017/08/24/19 [id number] Ambulatory [address] Repository FUNCTIONAL STATUS FUNCTIONAL STATUS No Functional Status Records FoundEQUIPMENT EQUIPMENT No Equipment Records FoundPAYERS PAYERS ENCOUNTER GUARANTOR PAYER SUBSCRIBER SOURCE 08/15/2018 Maricruz Davidson Primary Maricruz L OHIP Practices [facility] Insurance:[facility] Repository B: care Adv planPolicy B: [id number] Number: [id number] [place] [id number] 0 [place], [place] Date:2940-05-58ZiouChandler, [place] [address]Pca: (762) Name:[address] [address]Yxw: [address]Izvpeif, [place] [phone] ([place]) (HP)Tel: [phone]: () [phone] 08/15/2018 Secondary Maricruz L OHIP Practices Insurance:[facility] Repository icy Number: B: [id number] Date:2017-07-29 [place] [id number], [place] Name:AGENT SPA DESK [address] [address]Psa: [phone], [place] [phone] (SX) [address]VE: 08/13/2018 FRANTZ [id number] Insurance:ANTHEM CURRENDOB: Community [address] MEDICARE SENIOR [id number] Sibley Medical Centericy Number: Repository [address]Nkg: 330 [id number] [phone] () Date:[id number] [address]BC: 08/13/2018 Secondary NOT GIVENUNK [place] Insurance:SELF PAY [facility] Number: Effective Repository Date:2018-07-31 07/16/2018 FRANTZ E Primary MARICRUZ Borjas [id number] Insurance:MEDICARE CURRENDOB: Community [address] PART A [facility] [id number] Number: Repository [address]Aab: 330 [id number] [phone] () Date:2018-07-16 07/16/2018 Secondary NOT GIVENUNK [place] Insurance:SELF PAY [facility] Number: Effective Repository Date:2018-07-16 06/27/2018 FRANTZ Poe Primary MARICRUZ Borjas [id number] Insurance:MEDICARE CURRENDOB: Community [address] PART A [facility] [id number] [place], [place] Number: Repository [address]Wfb: 330 [id number] [phone] () Date:2018-06-24 06/27/2018 Secondary NOT GIVENUNK [place] Insurance:SELF PAY [facility] Number: Effective Repository Date:2018-06-24 06/24/2018 FRANTZ E Primary MARICRUZ Borjas [id number] Insurance:MEDICARE CURRENDOB: Community [address] PART A [facility] [id number] [place], [place] Number: Repository [address]Vif: 330 [id number] [phone] () Date:2018-06-24 06/24/2018 Secondary NOT GIVENUNK [place] Insurance:SELF PAY [facility] Number: Effective Repository Date:2018-06-24 05/14/2018 FRANTZ E Primary MARICRUZ Borjas [id number] Insurance:MEDICARE CURRENDOB: Community [address] PART A [facility] [id number] [place] Number: Repository [address]Vsr: 330 [id number] [phone] (HP) Date:2018-05-14 05/14/2018 Secondary NOT GIVENUNK [place] Insurance:SELF PAY [facility] Number: Effective Repository Date:2018-05-14 02/10/2018 FRANTZ Poe Primary MARICRUZ Gutierrezoster [id number] Insurance:MEDICARE CURRENDOB: Community [address] PART A [facility] [id number] [facility] Number: Repository [address]Oyk: 330 [id number] [phone] (HP) Date:2018-02-10 02/10/2018 Secondary NOT GIVENUNK [place] Insurance:SELF PAY [facility] Number: Effective Repository Date:2018-02-10 02/07/2018 FRANTZ E Primary MARICRUZ Gutierrezoster [id number] Insurance:MEDICARE CURRENDOB: Community [address] PART A [facility] [id number] Luis Valley [facility], [place] Number: Repository [address]Bea: 330 [id number] [phone] () Date:2018-02-06 02/07/2018 Secondary NOT GIVENUNK [place] Insurance:SELF PAY [facility] Number: Effective Repository Date:2018-02-07 02/06/2018 FRANTZ E Primary MARICRUZ Gutierrezoster [id number] Insurance:MEDICARE CURRENDOB: Community [address] PART A [facility] [id number] Luis Valley [facility], [place] Number: Repository [address]Hvl: 330 [id number] [phone] (HP) Date:2018-02-06 02/06/2018 Secondary NOT GIVENUNK [place] Insurance:SELF PAY [facility] Number: Effective Repository Date:2018-02-06 02/06/2018 FRANTZ E Primary MARICRUZ Gutierrezoster [id number] Insurance:MEDICARE CURRENDOB: Community [address] PART A [facility] [id number] [facility] Hospital [place] Number: Repository [address]Yrj: 330 [id number] [phone] (HP) Date:2018-02-06 02/06/2018 Secondary NOT GIVENUNK [place] Insurance:SELF PAY [facility] Number: Effective Repository Date:2018-02-06 02/06/2018 FRANTZ Poe Primary MARICRUZ Borjas [id number] Insurance:MEDICARE CURRENDOB: Community [address] PART A [facility] [id number] Luis [facility], [place] Number: Repository [address]Yij: 330 [id number] [phone] () Date:2018-02-06 02/06/2018 Secondary NOT GIVENUNK [place] Insurance:SELF PAY [facility] Number: Effective Repository Date:2018-02-06 11/25/2017 FRANTZ Poe Primary MARICRUZ Borjas [id number] Insurance:MEDICARE CURRENDOB: [facility] RUN PART A [facility] [id number] Luis Valley [facility], [place] Number: Repository [address]Quo: 330 [id number] [phone] () Date:2017-11-22 11/25/2017 Secondary NOT GIVENUNK [place] Insurance:SELF PAY [facility] Number: Effective Repository Date:2017-11-22 11/20/2017 FRANTZ Poe Primary NOT GIVENUNK [place] [id number] Insurance:SELF PAY [facility] [place] Number: Effective Repository [address]Ndk: (330) Date:2016-07-24 [phone] () 11/12/2017 FRANTZ E Primary MARICRUZ Borjas [id number] Insurance:MEDICARE CURRENDOB: [facility] RUN PART A [facility] [id number] Luis [facility], [place] Number: Repository [address]Gys: 330 [id number] [phone] () Date:2006-01-26 11/12/2017 Secondary NOT GIVENUNK [place] Insurance:SELF PAY [facility] Number: Effective Repository Date:2017-11-01 10/29/2017 FRANTZ E Primary MARICRUZ Borjas [id number] Insurance:MEDICARE CURRENDOB: [facility] RUN PART A [facility] [id number] Luis [facility], [place] Number: Repository [address]Iwt: 330 [id number] [phone] () Date:2017-10-29 10/29/2017 Secondary NOT GIVENUNK [place] Insurance:SELF PAY [facility] Number: Effective Repository Date:2017-10-29 08/24/2017 Frantz Deepika Hernandez MARICRUZ Borjas [id number] Insurance:MEDICARE CURRENDOB: [facility] PART A BPolicy [id number] Number: Repository [address]Vbi: 330 [id number] [phone] () Date:2017-08-24 08/24/2017 Secondary NOT GIVENUNK [place] Insurance:SELF PAY [facility] Number: Effective Repository Date:2017-08-24 SOCIAL HISTORY SOCIAL HISTORY No Social History Records FoundFAMILY HISTORY FAMILY HISTORY No Family History Records FoundADVANCE DIRECTIVES ADVANCE DIRECTIVES No Advanced Directives Records FoundINFORMATION SOURCE INFORMATION SOURCE DATE CREATED AUTHOR AUTHOR'S ORGANIZATION 08/23/2018 MICHELLE
== END 2018-07-16 14:19 | disposition home or self-care (01) ==
PROVIDERS: Emergency Provider Emergency Medicine; Family Provider Internal Medicine; PCP Internal Medicine
DX: A08.4 Viral intestinal infection, unspecified (principal); E86.0 Dehydration; E11.9 Type 2 diabetes mellitus without complications; I10 Essential (primary) hypertension; Z86.73 Personal history of transient ischemic attack (TIA), and cerebral infarction without residual deficits; Z79.01 Long term (current) use of anticoagulants; Z79.84 Long term (current) use of oral hypoglycemic drugs; Z79.899 Other long term (current) drug therapy
CPT/HCPCS: 80048; 85025; 96361; 96374; 99283; J7030; A4216; J2405

== ENCOUNTER 2018-08-28 11:30 | Outpatient (RCR) | payer MEDICARE, SELFPAY ==
--- NOTE | 2018-08-13 15:48 | HP.PTEVAL_ITS ---
Patient's Visit Information NITZA CRUZ is a 78 year old F referred to Physical Therapy by Doris Navarro DO with a diagnosis of Sciatica. Date of Evaluation: 08/13/18 Physical Therapist: Karen Flores DPT - Visit Plan Frequency: 2x /Week Duration: 4 Weeks Plan: Females Only- focus on LE and core s/s- possible flexion based exercise program - Subjective Findings: Patient reports that bother her legs have hurt her for over a year. Feels like her back and legs are tight and have not loosed up and feel tight. She fell down the basement steps about a year ago and that started her issues. Broke ribs on both sides in the fall. Feels that pain is getting better its just slow. Describes the pain as achy with ambulation. Best: 0/10 Eases: sitting Agg: standing, walking Worst: 5/10. Pain is lcoated in the buttocks and travels to the knees. No N/T in the toes. Has a history fo back problems- had therapy- on/off her whole life. No surgeries or injections in the back. Is not very active- feels no desire to do anything due to the pain in her legs. Sleep: not disturbed. Has had recent x-rays on the back. PMXh:HTN, DM, Cancer Meds: see list - Objective POSTURE: FH, RS, Increased kyphosis- does not correct with verbal or tacile cueing PALPATION: Tender along gluts bilaterally. Sensation/Reflexes: WNL. HR/TR: able with UE A from wall- equal bilaterally. SLS: WS but unable to SLS. ROM: Lumbar- Flexion- hands to mid tijerina,Extn: very little from lumbar spine SB mod loss bilat, rotation mod loss bilat Hip/Knee Ankle: WNL. Flexibility: HS: moderate restriction bilaterally. MMT: RLE- ankle 5/5 throughout; knee- ext 4+/5, flexion 4/5; hip- flexion 4-/5 in SLR, abd 4/5, ext 4/5. LLE-ankle 5/5 throughout; knee- ext 4+/5, flexion 4/5; hip- flexion 4-/5 with SLR, abd 4/5, ext 4/5. Core strenth- poor. GAIT: Pt. ambulates without AD- but it is abnormal- decreased stance on her right LE with a lumbering stance. STAIRS: asc/desc 8 recip with 2 HR-slow jaison and uses UE A from asc and uncontrolled descent - Goals Goal 1:: Patient will be I with HEP and progression Goal Time Frame: 4-6 Weeks Goal 2:: Patient will ambulate >300 feet with a normalized gait pattern and LRD Goal Time Frame: 4-6 Weeks Goal 3:: Patient reginald asc/desc 8 stairs recip with 1 HR and good technique Goal Time Frame: 4-6 Weeks Goal 4:: Patient will maintain proper posture t/o tx session to demo increased core s/s. Goal Time Frame: 4-6 Weeks - Rehabilitation Potential Physical Therapy Diagnosis: Patient presents with hypomobility- she has decreased strength, flex and muscular endurance leading abnormal gait and increased pain with ADL's. Rehabilitation Potential: Fair - Anticipated Interventions Patient/Client Instruction: Educate patient on: Benefits of Fitness Program Therapeutic Exercise to Include: Strength training, Endurance training, Balance training, Body mechanics, Postural training, Flexibilty training, Gait and locomotor training, Dynamic Lumbar Stabilization For the Purpose of:: To improve muscle performance and motor function TENS: Yes Cryotherapy (ice pack, ice massage): Yes Thermo therapy (hot pack): Yes Ultrasound (thermal/non thermal): Yes For the Purpose of:: To decrease pain Thank you for the opportunity to evaluate your patient. For Medicare and Medicare HMO plans, please review the plan of care and approve it. It will need to be FAXED BACK to us at [phone] for Medicare purposes. For Medicare only, by signing this I certify the plan of care. Please let me know if there are questions or concerns regarding this plan of care. Physician Signature: Date:
--- NOTE | 2018-09-01 07:11 | HP.PT.NRP ---
HP - Discharge Summary (1) - Patient Information NITZA CRUZ was seen in my office for initial evaluation on 08/13/18. The following Plan of Care was established for this patient: Initial Frequency: 2x /Week Initial Duration: 4 Weeks - Anticipated Interventions Patient/Client Instruction: Educate patient on: Benefits of Fitness Program Therapeutic Exercise to Include: Strength training, Endurance training, Balance training, Body mechanics, Postural training, Flexibilty training, Gait and locomotor training, Dynamic Lumbar Stabilization For the Purpose of:: To improve muscle performance and motor function TENS: Yes Cryotherapy (ice pack, ice massage): Yes Thermo therapy (hot pack): Yes Ultrasound (thermal/non thermal): Yes For the Purpose of:: To decrease pain This patient was last seen in our office . Pertinent comments regarding their Physical therapy will appear below: Patient cancelled all apts as she feels she jumped into PT and its making it worse. Appropriate to be d/c and return to MD for further evaluation. At this point I will be discontinuing this patient from physical therapy. I would be happy to see this patient again in the future if found appropriate by the physician. Thank you! CITLALI WeiT
--- OUTSIDE RECORDS SUMMARY | 2018-10-18 11:58 | XMS RPT_ITS | Continuity of Care Document ---
:1940 Author Organization [facility] Address [address] [facility] [address] [place] [address] Phone Care Team Providers Name Role Phone Doris Navarro DO Unavailable Camacho Serrano Unavailable Flakito Morales Unavailable [facility], [facility] Unavailable Marcello Stein Unavailable Sal Urrutia [...] artery stenosis (I65.23, 433.10) Comments: goes to [facility] yearly to follow Status: Active Bilateral [...] related to fatty liver -- did nutrition school adjustment counselor and wt loss / metformin and [...] 30 days Quantity: 60 {Tablet} Refills: 3 Ordered:28-Jul-2018 Arnold Navarro DO, DO, KathleenFearon DO, Kathleen Start : 28-Jul-2018 Active Citalopram Hydrobromide 40 MG Oral Tablet [...] 0 days Quantity: 60 {Tablet} Refills: 0 Ordered:24-Jul-2018 Arnold Navarro DO, DO, KathleenFearon DO, Kathleen Start : 24-Jul-2018 Active Comments:tuzxmJ14.90 TraZODone HCl 100 MG Oral Tablet 1-1/2 [...] Start : 26-Sep-2016 End : 12-Dec-2017 Inactive [place] 5-325 MG Oral Tablet 1 q 4hrs [...] : 07-Sep-2014 End : 13-Sep-2014 Discontinued ERGOCALCIFEROL, 33440DRPJ (Oral Capsule) 1 (one) Capsule q week [...] End : 23-Jun-2012 Discontinued VITAMIN D (ERGOCALCIFEROL), 14234PZNZ (Oral Capsule) 1 Capsule q week for 0 days Quantity: 12 {Capsule} Refills: 2 Ordered:19-Aug-2015 Raiza Ortiz Start : 07-Apr-2013 End : 19-Aug-2015 Discontinued VITAMIN D, 82155NLEB (Oral Capsule) 1 (one) Capsule q week [...] as of 07-Aug-2017 Abnormal glucose tolerance test (R73.09, 790.22) Status: Inactive as of 05-Mar-2011 Abnormal [...] Removal) Completed Comments: 2009 Date Value Details 16-Jul-2018 Discharge Instruction Result: Comments: See Note; NOTES: [facility] Medical Records Department [address] [place] [address] Discharge Instruction 07/16/18 1405 MR#: [id number] Acct: [id number] Name: CLIFFORD CRUZMARICRUZ Davidson Rep #: [id number] : 1940 78 From: Johnnie Baez MD PCP: Doris Navarro DO Status: DEP ER ED Disposition - Plan for ED Patient: Disposition: Home or Assisted Living Chief C omplaint: Nausea/Vomiting/Diarrhea Instructions: ED Gastroenteritis Viral Prescriptions: Ondansetron [Zofran Odt] 4 mg PO Q8H PRN PRN #7 tab PRN Reason: Nausea Referrals: Doris Navarro DO [Primary Ca re Provider] - 1-2 Days if not improving [...] any unexpected problems, contact your Primary Care Pro vider. Call [facility] ([phone]) or report to the closest Emergency Room. Call 911 if necessary. 07/16/18 5977 <Electronically signed by Johnnie Baez MD> Date Johnnie Baez MD Cosigner Signature (If Indicated): Date CC: Doris Navarro 16-Jul-2018 Emergency Department Summary Result: Comments: See Note; NOTES: [facility] Medical Records Department [address] [place] [address] Emergency Department Summary 07/16/18 1249 MR#: [id number] Acct: [id number] Name: MARICRUZ GRIGSBY Rep #: [id number] : 1940 78 From: Johnnie Baez MD PCP: Doris Navarro DO Status: DEP ER - ER Visit Summary Date of Service: 07/16/18 Chief Complaint: Nausea, vomit ing and diarrhea. History of Present Illness: The patient is a 78 F past medical history of prior stroke, hypertension dhx-woqnwdw-wjbmhvjxy diabetes. Patient states last 3-4 days she has had nausea, v omiting diarrhea. Minimal abdominal cramping. No hematemesis or melena. No significant abdominal pain. No dysuria. No fever. Physical Examination: Appearing older female. Vital signs are stable. She is afebrile. She does not look septic or toxic. HEENT exam mildly dry mucous membranes. Otherwise unremarkable. No facial droop. Normal speech. Neck nontender. No lymphadenopathy. Lungs clear to auscultat ion bilaterally. Heart regular rhythm rate about 100 no murmur. Abdomen soft. Nondistended. Normal bowel sounds. No peritoneal signs. Both the right upper right lower quadrant unremarkable. No hernias o r masses. No signs of obstruction. Patient is moving all 4 extremities. Neurologically she is awake and alert with no focal motor deficits. Back exam nontender. Skin unremarkable. Test Results: CBC maryana ws a white count of 9. Hemoglobin of 12. Electrolytes unremarkable BUN of 16 creatinine 1 efficiency. Emergency Department Course and Treatment: Older female with nausea, vomiting diarrhea suspect seco ndary to viral gastroenteritis. Treated with IV fluids and IV Zofran. Screening labs obtained. Repeat exam patient is doing well. She has been able to drink p.o. fluids. Abdomen is benign. She is feelin g better. Treatment Plan: Zofran for nausea. Fluids and rest. Increase diet slowly. Disposition: Discharge Impression: Acute nausea, vomiting diarrhea secondary to viral gastroenteritis History of no i-iopvuub-wulpditms diabetes. This note was generated with [employer] dictation software. It may contain incorrect words, spelling, and punctuation that were not noted in review of the chart prior to sig yaniv ED Disposition - Plan for ED Patient: Chief Complaint: Nausea/Vomiting/Diarrhea Referrals: Doris Navarro DO [Primary Care Provider] - What to do if you have Problems For any increased christy n, shortness of breath, bleeding, nausea or vomiting, chest pain, or any unexpected problems, contact your Primary Care Provider. Call [facility] ([phone]) or report to the closest Emergency Room. Call 911 if necessary. 07/16/18 1647 <Electronically signed by Johnnie Baez MD> Date Johnnie Baez MD Cosigner Signature ( If Indicated): Date CC: Doris Navarro DO 24-Jun-2018 L/S Spine Min 4 Views Result: Comments: See Note; NOTES: [facility] Imaging Services [address] [place] [address] L/S Spine Min 4 Views MR#: [id number] Acct: [id number] Name: MARICRUZ GRIGSBY Rep # : [id number] : 1940 F 78 From: Mack Soni MD PCP: Doris Navarro DO Status: REG CLI Study: L/S Spine Min 4 Views Date of Exam: 06/24/18 Exam# [id number] Ordering Dr: Doris Navarro DO SANDI DY: X-RAY - LUMBAR SPINE REASON FOR [...] Service support , CC: Doris Navarro DO Lab Scientist: Signed 14-May-2018 Emergency Department Summary Result: Comments: See Note; NOTES: [facility] Medical Records Department [address] [place] [address] Emergency Department Summary 05/14/18 0908 MR#: [id number] Acct: [id number] Name: MARICRUZ GRIGSBY Rep #: [id number] : 1940 78 From: Zee Denise MD [...] family doctors she is re ferred to [facility] for the shoulder injury and she will return for change in symptoms and she is comfortable with this plan Treatment Plan: [] Disposition: [] Stable home Impression: [] Fall left rib fracture, left shoulder injury This note was generated with [employer] dictation software. It may contain incorrect words, spelling, and punctuation that were not noted in review of the [facility] prior to signing ED Disposition - Plan for ED Patient: Chief Complaint: Fall Referrals: Doris Navarro, DO [Primary Care Provider] - What to do if you have Problems For any increased pain, sh ortness of breath, bleeding, nausea or vomiting, chest pain, or any unexpected problems, contact your Primary Care Provider. Call [facility] ([phone]) or report to the closest Emergency Room. Call 911 if necessary. 05/14/18 1530 <Electronically signed by Zee Denise MD> Date Zee Denise MD Cosigner Signatur e (If Indicated): Date CC: Doris Navarro DO 14-May-2018 Discharge Instruction Result: Comments: See Note; NOTES: [facility] Medical Records Department [address] [facility] [place] [address] Discharge Instruction 05/14/18 1133 MR#: [id number] Acct: [id number] Name: CLIFFORD HOBBSFADUMOMARICRUZ L Rep #: [id number] : 1940 78 From: Zee Denise MD PCP: Doris Navarro DO Status: REG ER ED Disposition - Plan for ED Patient: Chief Complaint: Fall Instructions: ED M echanical Fall, ED Fx Rib, ED Sprain Shoulder, ED Sling Prescriptions: Hydrocodone Bitart/Apap 5-325 [[place] 5MG-325MG] 1 tab PO Q6H PRN PRN 3 Days #10 tab PRN Reason: Pain Referrals: Doris Navarro DO [Primary Care Provider] - What to do if you have Problems For any increased pain, shortness of breath, bleeding, nausea or vomiting, chest pain, or any unexpected problems, contact your Primary Car e Provider. Call [facility] ([phone]) or report to the closest Emergency Room. Call 911 if necessary. 05/14/18 1134 <Electronically signed by Zee Denise MD> Date ___ Zee Denise MD Cosigner Signature (If Indicated): Date CC: Doris Navarro DO 14-May-2018 Chest PA and Lateral Result: Comments: See Note; NOTES: [facility] Imaging Services [address] [place] [address] Chest PA and Lateral MR#: [id number] Acct: [id number] Name: MARICRUZ GRIGSBY Rep #: [id number] : 1940 F 78 From: Teo Wayne MD PCP: Doris Navarro DO Status: REG ER Study: Chest PA and Lateral Date of Exam: 05/14/18 Exam# [id number] Ordering Dr: Zee Denise MD STUDY: X-RAY CHEST REASON FOR EXAM: Female, 78 years old. Left-sided rib pain following a fall. TECHNIQUE: PA and lateral views of the chest. COMPARISON: Comparison is made with prior study dated J mely 2017. FINDINGS: Stable elevation of the right [...] Teo Wayne MD at 10:11 EDT Tel [phone], [employer] e support , CC: MD Snoam Denise; Doris Navarro DO Lab Scientist: Signed 14-May-2018 Elbow min 3 Views Result: Comments: See Note; NOTES: [facility] Imaging Services [address] [place] [address] Elbow min 3 Views MR#: [id number] Acct: [id number] Name: MARICRUZ GRIGSBY Rep #: [id number] : 1940 F 78 From: Teo Wayne MD PCP: Doris Navarro DO Status: REG ER Study: Elbow min 3 Views Date of Exam: 05/14/18 Exam# [id number] Ordering Dr: Zee Denise MD STUD Y: [...] Teo Wayne MD at 10:12 EDT Tel [phone], Service support , CC: MD Sonam Denise; Doris Navarro DO Lab Scientist: Signed 14-May-2018 Shoulder min 2 Views Result: Comments: See Note; NOTES: [facility] Imaging Services [address] [place] [address] Shoulder min 2 Views MR#: [id number] Acct: [id number] Name: MARICRUZ GRIGSBY Rep #: [id number] : 1940 F 78 From: Teo Wayne MD PCP: Doris Navarro DO Status: REG ER Study: Shoulder min 2 Views Date of Exam: 05/14/18 Exam# [id number] Ordering Dr: Zee Denise MD STUDY: X-RAY [...] Wayne MD at 11:02 EDT Tel [phone], Service support , CC: MD Sonam Denise; Doris Navarro DO Lab Scientist: Signed 06-Feb-2018 History and Physical Exam Result: Comments: See Note; NOTES: [facility] Medical Records Department [address] [place] [address] History and Physical 02/06/182050 MR#: [id number] Acct: [id number] Name: MARICRUZ GRIGSBY Anuel Rep #: [id number] : 1940 77 From: María Barnes MD [...] cholecystectomy Psychiatric History: No pertinent psych hx REGISTERED [employer]AND [employer] History: No pertinent REGISTERED [employer]AND SUR[employer]YOR history Lives: Spouse/ Significant Other Smoking Status: [...] Subcu heparin. This note was generated with [employer] software. It may contain incorrect words, spelling, and punctuation that were not noted in checking the note before signing. Code Visit OBSV E AND M: 15371 Initial observation care L3 8 2108 <Electronically signed by María Barnes MD> Date María Barnes MD Cosigner Signature: Date (if applicable) CC: María Barnes; Doris Navarro DO Signed 06-Feb-2018 Brain/Head without Contrast Result: Comments: See Note; NOTES: [facility] Imaging Services [address] [facility] [address] Brain/Head without Contrast MR#: [id number] Acct: [id number] Name: MARICRUZ GRIGSBY Rep #: [id number] : 1940 F 77 From: Renata Lee MD PCP: Doris Navarro DO Status: [facility] Study: Brain/Head without Contrast Date of Exam: 02/06/18 Exam# [id number] Ordering Dr: Cameron Marte MD STUDY: CT [...] , CC: Doris Navarro DO; Jered Marte Lab Scientist: Signed 06-Feb-2018 Chest 1 View Result: Comments: See Note; NOTES: [facility] Imaging Services [address] [place] [address] Chest 1 View MR#: [id number] Acct: [id number] Name: MARICRUZ GRIGSBY Rep #: [id number] : 1940 F 77 From: Renata Lee MD PCP: Doris Navarro DO Status: REG ER Study: Chest 1 View Date of Exam: 02/06/18 Exam# [id number] Ordering Dr: Jered Marte MD STUDY: X-RAY [...] EDT , Service support , CC: Doris Marte Lab Scientist: Signed 25-Nov-2017 Liver Result: Comments: See Note; NOTES: [facility] Imaging Services [address] [place] [address] Liver MR#: [id number] Acct: [id number] Name: MARICRUZ GRIGSBY Rep #: [id number] : 1940 F 77 From: Mack Hand MD PCP: Doris Navarro DO Status: REG CLI Study: Liver Date of Exam: 11/25/17 Exam# [id number] Ordering Dr: Doris Navarro DO STUDY: ABDOMINAL [...] MD at 12:34 EDT , Service support [phone], CC: Doris Navarro DO Lab Scientist: Signed 29-Oct-2017 Hip 2-3 Views with Pelvis Result: Comments: See Note; NOTES: [facility] Imaging Services [address] [place] [address] Hip 2-3 Views with Pelvis MR#: [id number] Acct: [id number] Name: CLIFFORD CRUZMARICRUZ L R ep #: [id number] : 1940 F 77 From: Benji Finch PCP: Doris Navarro DO Status: REG CLI Study: Hip 2-3 Views with Pelvis Date of Exam: 10/29/17 Exam# [id number] Ordering Dr: Thelma Sofia STUDY: X-RAY - [...] , CC: QUINN Sofia; Doris Navarro DO Lab Scientist: Signed 27-Aug-2017 12 Lead Electrocardiogram Result: Comments: See Note; NOTES: [facility] Cardiovascular Services [address] [place] [address] 12 Lead EKG 08/24/171718 MR#: [id number] Acct: [id number] Name: PORTIA GRIGSBY Rep #: [id number] : 1940 77 From: Maurilio Meraz MD [...] C onfirmed by SOLEDAD STREETER, MAURILIO ([id number]), food editor STACY CARTER (56) on 08/27/2017 10:37:34 AM Referred By: EITAN Confirmed By:MAURILIO MERAZ MD 08/27/17 1037 Date Maurilio Meraz MD CC: Doris Navarro DO Signed 25-Aug-2017 Emergency Department Summary Result: Comments: See Note; NOTES: [facility] Medical Records Department [address] [place] [address] Emergency Department Summary 08/24/17 170 MR#: [id number] Acct: [id number] Name: CLIFFORD HOBBSMARICRUZ THORNE Rep #: [id number] : 1940 77 From: Zee Denise MD [...] at home. She has no history of DE PE or DVT she does have history [...] be altered This note was generated with [employer] dictation software. It may contain incorrect words, spelling, and punctuation that were not noted in review of the chart prior to signing ED Disposition - Plan for ED Patient: Chief Complaint: Shor tness of Breath Referrals: Doris Navarro DO [Primary Care Provider] - What to do if you have Problems For any increased pain, shortness of breath, bleeding, nausea or vomiting, chest pain, or any unexpected problems, contact your Primary Care Provider. Call [facility] ([phone]) or report to the closest Emergency Room. Call 911 if necessary. 08/25/17 0001 <Electronically sig radha by Zee Denise MD> Date Zee Denise MD Cosigner Signature (If Indicated): Date CC: Doris Navarro DO 24-Aug-2017 Discharge Instruction Result: Comments: See Note; NOTES: [facility] Medical Records Department [address] [place] [address] Discharge Instruction 08/24/171819 MR#: [id number] Acct: [id number] Name: MARICRUZ GRIGSBY Rep #: [id number] : 1940 77 From: Zee Denise MD [...] your Primary Care Provider. Call [facility] ([phone]) or report to the closest [facility] Room. Call 911 if necessary. 08/24/17 182 <Electronically signed by Zee Denise MD> Date Zee Denise MD Cosign er Signature (If Indicated): Date CC: Doris Navarro DO 24-Aug-2017 Chest PA and Lateral Result: Comments: See Note; NOTES: [facility] Imaging Services [address] [facility] [place] [address] Chest PA and Lateral MR#: [id number] Acct: [id number] Name: MARICRUZ GRIGSBY Rep #: [id number] : 1940 F 77 From: Stacy Tapia MD PCP: oDris Navarro DO Status: REG ER Study: Chest PA and Lateral Date of Exam: 08/24/17 Exam# [id number] Ordering Dr: Zee Denise MD XR Chest [...] CC: MD Sonam Denise; Doris Navarro DO Lab Scientist: Signed 07-Aug-2017 Chest PA and Lateral Result: Comments: See Note; NOTES: [facility] Imaging Services [address] [place] [address] Chest PA and Lateral MR#: [id number] Acct: [id number] Name: MARICRUZ GRIGSBY Rep #: [id number] : 1940 F 77 From: Teo Wayne MD PCP: Doris Navarro DO Status: REG CLI Study: Chest PA and Lateral Date of Exam: 08/07/17 Exam# [id number] Ordering Dr: Doris Navarro DO STUDY: X-RAY [...] Logan i, MD at 13:49 EST Tel [phone], Service support , CC: Doris Navarro DO Lab Scientist: Signed 20-Nov-2016 Operative Report Result: Comments: See Note; NOTES: [facility] Medical Records Department [address] [place] [address] Operative Report 11/14/16 0736 MR#: [id number] Acct: [id number] Name: MARICRUZ BREAUX Rep #: [id number] : 1940 76 From: Liza Duron DO PCP: Doris Navarro DO Status: DEP [facility] Y Location: [facility] Report of Operation Date of Procedure: 11/14/16 Pre-Operative Diagnosi s: Right third and fourth trigger fingers Post-Operative Diagnosis: Name Surgery/Procedure Performed:: Right hand third and fourth A1 shannan release Type of Anesthesia:: Block,Ridgway Anesthesiologist: Fox Michaels Estimated Blood Loss (mL): [...] right arm was prepped and draped after Ridgway block was initiated. We marke d out [...] Dragon disclaimer This note was generated with [employer] dictation software. It may contain incorrect words, spellin g, and punctuation that were not noted in checking the note before signing. 11/20/16 1231 <Electronically signed by Liza Duron DO> Date Liza Duron DO CC: Liza Duron DO; Doris Navarro DO Signed 16-Nov-2016 Oncology Progress Note Result: Comments: See Note; NOTES: [facility] Medical Records Department [address] [place] [address] Oncology Progress Note MR#: [id number] Acct: [id number] Name: PORTIA GRIGSBY Rep #: [id number] : 1940 76 From: Sal Urrutia MD [...] level. Sal Urrutia MD T: NTS JOB: [id number] 11/16/16 0850 <Electronically signed by Sal Urrutia MD> Date Sal Urrutia MD Cosigner Signature (If Indicated): Date CC: Date Dictated: 11/08/16 1305 Date Transcribed: 11/08/161304 Lab Scientist: Signed 14-Nov-2016 Discharge Instruction Result: Comments: See Note; NOTES: [facility] Medical Records Department [address] [place] [address] Instructions for Home/Discharge Instructions 11/14/16 0735 MR#: [id number] Acct: [id number] Name: MARICRUZ GRIGSBY Rep #: [id number] : 1940 76 From: Liza Duron DO PCP: Doris Navarro DO Status: REG [facility] Discharge Diet: No Restrictions - keep dressing [...] mg PO DAILY 11/09/16 Hydrocodone Bitart/Apap 5-325 [[place] 5MG- 325MG] 1 - 2 tablet PO Q6H PRN PRN #20 tablet 11/14/16 The following prescriptions were given: Hydrocodone Bitart/Apap 5- 325 [[place] 5MG-325MG] 1 - 2 tablet PO Q6H PRN PRN #20 tablet PRN Reason: Pain Primary Care Physician: Doris Navarro DO [Primary Care Provider] - Please Follow Up With: Liza Duron - [phone] 11/14/16 0736 <Electronically signed by Liza Duron DO> Date Liza Duron DO CC: Doris Navarro DO 20-Jul-2016 Chest PA and Lateral Result: Comments: See Note; NOTES: [facility] Imaging Services [address] [place] [address] Verdana 4d Chest PA and Lateral MR#: [id number] Acct: [id number] Name: JAQUAN GRIGSBY Rep #: [id number] : 1940 F 76 From: Mack Hand MD PCP: Doris Navarro DO Status: REG CLI Study: Chest PA and Lateral Date of Exam: 07/20/16 Exam# [id number] Ordering Dr: Doris Navarro DO STUDY: X-RAY [...] at 12:24 EST Tel , Service support [phone], CC: Doris Navarro DO Lab Scientist: Signed 26-Jan-2016 Echocardiogram Complete Result: Comments: See Note; NOTES: [facility] Cardiovascular Services [address] [place] [address] Echo Complete 01/26/16 1008 MR#: [id number] Acct: [id number] Name: MARICRUZ PARMAR Rep #: [id number] : 1940 75 From: Mack Dickerson MD Attending Dr: Maggie Tracey DO Status: REG CLI Ordering Dr: Maggie Tracey DO Date: 01/26/16 Location: [facility] Sex: F C Admitt ed: Reason [...] Date Dictated: 01/26/16 1008 Date Transcribed: 01/26/161611 Lab Scientist: Signed 05-Dec-2015 Chest 1 View (Portable) Result: Comments: See Note; NOTES: [facility] Imaging Services [address] [place] [address] Verdana 4d Chest 1 View (Portable) MR#: [id number] Acct: [id number] Name: MARICRUZ PEÑALOZA Rep #: [id number] : 1940 F 75 From: Yari Garcia MD PCP: Maggie Tracey DO Status: PRE ER Study: Chest 1 View (Portable) Date of Exam: 12/05/15 Exam# [id number] Ordering Dr: Johnnie Baez MD STUDY: X-RAY [...] at 16:44 EDT Tel , Service support [phone], RAD/Chest 1 V iew (Portable) IMPRESSION: Underexpansion of the lungs. Mild to moderate cardiomegaly. Electronically Signed: Yari Garcia MD at 16:44 EDT Tel , Service support , CC: Maggie Tracey DO; Johnnie Baez MD Lab Scientist: Signed 05-Dec-2015 Spirometry (52951) Comments: good effort and curvenormal Result: 05-Dec-2015 EKG (29832) Comments: ekg showed normal sinus rhythym, normal axis, no acute st/t wave changes Result: [MEASUREMENTS ANALYSIS] Date of Test: 12/05/2015 14:27:41; Heart Rate: 93; TX Interval: 202; QRS: 96; QT Interval: 352; Corrected QT Interval (QTc): 409; P Wave [place]: 48; QRS Wave [place]: -26; T Wave [place] : 55; Blood Pressure: 134/64 [ECG DIAGNOSTIC STATEMENTS] Date of Test: 12/05/2015 14:27:41; Summary: Sinus Rhythm WITHIN NORMAL LIMITS 21-Sep-2015 12 Lead Electrocardiogram Result: Comments: See Note; NOTES: [facility] Cardiovascular Services [address] [place] [address] 12 Lead EKG 09/19/15 0908 MR#: [id number] Acct: [id number] Name: MARICRUZ VIGIL Rep #: [id number] : 1940 75 From: Maurilio Meraz MD [...] wave progression Confirmed by SOLEDAD STREETER, MAURILIO ([id number]), food editor STACY CARTER (56) on 09/21/2015 11:27:40 AM Referred By: JE Confirmed By:MAURILIO MERAZ MD 1127 Date Maurilio Meraz MD CC: Maggie Tracey DO Date Dictated: 09/19/15907 Date Transcribed: 09/19/15907 Lab Scientist: Signed 19-Sep-2015 Discharge Instruction Result: Comments: See Note; NOTES: [facility] Medical Records Department [address] [place] [address] Discharge Instruction 09/19/15 1020 MR#: [id number] Acct: [id number] Name: MARICRUZ GRIGSBY Rep #: [id number] : 1940 75 From: Johnnie Baez MD [...] chest pain, or any unexpected problems, [facility]. Call [facility] ([phone]) or report to the closest Emergency Room. Call 911 if necessary. 09/19/15 4801 <Electronically signed by Johnnie Baez MD> Date __ Johnnie Baez MD Cosigner Signature (If Indicated): Date CC: Maggie Tracey DO 19-Sep-2015 Emergency Department Summary Result: Comments: See Note; NOTES: [facility] Medical Records Department [address] [place] [address] Emergency Department Summary MR#: [id number] Acct: [id number] Name: MARICRUZ GRIGSBY Rep #: [id number] : 1940 75 From: Johnnie Baez MD PCP: Maggie Tracey DO Status: [facility] ER DATE OF SERVICE: 09/19/2015 CHIEF COMPLAINT: [...] tachycardia at 112. No acute signs of DE or ischemia. White count 11.4, H and [...] MD C C: Maggie Tracey DO T: [facility] JOB: [id number] 09/19/15 1755 <Electronically signed by Johnnie Baez MD& amp;#62; Date Johnnie Baez MD Cosigner Signature (If Indicated): Date CC: Maggie Tracey DO Date Dictated: 09/19/15 1019 Date Transcribed: 09/19/15 1019 Lab Scientist: Signed 07-Sep-2015 Chest PA and Lateral Result: Comments: See Note; NOTES: [facility] Imaging Services [address] [place] [address] Verdana 4d Chest PA and Lateral MR#: [id number] Acct: [id number] Name: MARICRUZ HADLEY Anuel Rep #: [id number] : 1940 F 75 From: Kali Raymundo MD PCP: Maggie Tracey DO Status: REG CLI Study: Chest PA and Lateral Date of Exam: 09/07/15 Exam# [id number] Ordering Dr: Maggie Irwin DO STUDY: X-RAY [...] FACR at 11:41 EST , Service support [phone], RAD/Chest PA and Lateral IMPRESSION: No significant changes. Stable moderate cardiomegaly. Bilateral interstitial changes more prominent on the right. Electroni marcus Signed: Kali Raymundo MD, FACR at 11:41 EST , Service support [phone], CC: Maggie Tracey DO Lab Scientist: Signed 07-Sep-2015 Spirometry (83771) Comments: good effort and curve normal Result: 24-Mar-2015 PT Discharge Summary Result: Comments: See Note; NOTES: [facility] [address] [place] [address]. [address] [place] [address] Fax REHABILITATION SERVICES DISCHARGE SUMMARY MR#: [id number] Acct: [id number] Name: MARICRUZ GRIGSBY Rep #: [id number] : 1940 75 From: Yuni Clark Referring [...] discharge. Yuni Clark, PT T: NTS JOB: [id number] <Electronically signed by Yuni Clark > 03/24/15 1227 CC: Maggie Tracey DO Signed 17-Feb-2015 Inital Evaluation - PT Result: Comments: See Note; NOTES: [facility] Therapy [address] [place] [address] Fax REHABILITATION SERVICES INITIAL EVALUATION MR#: [id number] Acct: [id number] Name: JOSE AHOMERO ANTHONYMARICRUZ Rep #: [id number] : 1940 75 From: Yuni Clark Referring : Maggie Tracey DO Status: REG RCR Insurance : MEDICARE PART A B Eval Date: [facility] DATE OF SERVICE: 02/16/2015 SUBJECTIVE: This [...] care. Yuni Clark, PT T: NTS JOB: [id number] <Electronically signed by Yuni Clark > 02/17/15 1011 CC: Signed For Medicare only, by seng yao this I certify the plan of care. Physicians Signature Date 08-Feb-2015 L/S Spine Min 4 Views Result: Comments: See Note; NOTES: [facility] Imaging Services [address] [place] [address] Radiology Report MR#: [id number] Acct: [id number] Name: MARICRUZ GRIGSBY Rep #: [id number] : 1940 F 74 From: Teo Wayne MD PCP: Maggie Tracey DO Status: REG CLI Study: L/S Spine Min 4 Views Date of Exam: 02/08/15 Exam# [id number] Ordering Dr: Maggie Tracey DO STUDY: X-RAY [...] Wayne MD a t 12:30 EDT Tel [phone], Service support [phone], RAD/L/S Spine Min 4 Views IMPRESSION: Degenerative changes of the spine, as detailed above. Electro nically Signed: Teo Wayne MD at 12:30 EDT Tel [phone], Service support [phone], CC: Maggie Tracey DO Lab Scientist: Signed 15-Nov-2014 Thyroid Result: Comments: See Note; NOTES: [facility] Imaging Services [address] [place] [address] Ultrasound Report MR#: [id number] Acct: [id number] Name: MARICRUZ GRIGSBY Rep #: [id number] : 1940 F 74 From: Julián Trivedi DO PCP: Maggie Tracey DO Status: REG CLI Study: Thyroid Date of Exam: 11/15/14 Exam# [id number] Ordering Dr: Maggie Tracey DO STUDY: THYROID [...] Julián Trivedi DO at 16:51 EDT Tel [phone], Service support [phone], Fax CC: Maggie Tracey DO Lab Scientist: Signed 13-Sep-2014 Chest PA and Lateral Result: Comments: See Note; NOTES: [facility] Imaging Services [address] [place] [address] Radiology Report MR#: [id number] Acct: [id number] Name: MARICRUZ GRIGSBY Rep #: [id number] : 1940 F 74 From: Donato Abdi MD PCP: Maggie Tracey DO Status: REG CLI Study: Chest PA and Lateral Date of Exam: 09/13/14 Exam# [id number] Ordering Dr: Maggie Tracey DO STUDY: X [...] at 12:01 EST Tel , Service support [phone], CC: Maggie Tracey DO Lab Scientist: Signed 15-Jul-2014 Chest PA and Lateral Result: Comments: See Note; NOTES: [facility] Imaging Services [address] [place] [address] Radiology Report MR#: [id number] Acct: [id number] Name: CLIFFORD HOBBSFADUMOMARICRUZ Rep #: [id number] : 1940 F 74 From: Teo Wayne MD PCP: Maggie Tracey DO Status: REG CLI Study: Chest PA and Lateral Date of Exam: 07/15/14 Exam# [id number] Ordering Dr: Maggie Tracey DO SANDI DY: [...] Teo Wayne MD at 9:42 EST Tel [phone], Service support [phone], CC: Maggie Tracey DO Lab Scientist: Signed 10-May-2014 Bilat Scrn Digital & CAD Result: Comments: See Note; NOTES: [facility] Imaging Services [address] [place] [address] Breast Imaging Report MR#: [id number] Acct: [id number] Name: MARICRUZ GRIGSBY #: [id number] : 1940 F 74 From: Gene Phillips PCP: Maggie Tracey DO Status: REG CLI Exam# [id number] Ordering Dr: Maggie Tracey DO MAMMOGRAPHY - [...] these [facility] ient by the facility within 30 days. Approximately 10% of breast cancers are not detected by mammography. A normal mammogram should not delay biopsy of a clinically suspicious abnormality. Electro nically Signed: Jessenia Phillips MD at 19:48 EDT Tel , Service support [phone], CC: Maggie Tracey DO Lab Scientist: Signed 10-Sep-2013 Dexa Bone Density Study (HP) Result: Comments: See Note; NOTES: [facility] Imaging Services [address] [place] [address] Bone Density Report MR#: [id number] Acct: [id number] Name: MARICRUZ GRIGSBY Rep #: [id number] : 1940 F 73 From: Teo Wayne MD PCP: Maggie Tracey DO Status: REG CLI Study: Dexa Bone Density Study () Date of Exam: 09/10/13 Exam# [id number] Ordering Dr: Maggie Tracey DO STUDY: DUAL [...] M.D. at 11:04 EST , Service support [phone], CC: Maggie Tracey DO Lab Scientist: Signed Immunization Name Dates Details Influenza (3 years and up) on: 04-Jun-2007 Comments: Lot #: [id number] date: 01/03Amount given: 0.5 MLRoute: IMSite given: Left deltoidGiven by: Nathaniel Beal LPN Influenza (3 years and up) on: 12-May-2009 Comments: Lot #[id number]-left deltoidgiven by:CDH Family History Unknown Family Member Name Dates Details Cancer Status: Active Diabetes Mellitus Status: Active Father Comments: DE, hypercholesterolemia Status: Active First Degree Relatives Comments: [...] smoker Vital Signs Date Test Result Details :08 Pulse 76 /min Comments: Pattern: Regular Respiration [...] kg/m2 Body Surface Area Calculated 2.01 m2 :46 Temperature 97.8 f Comments: Method: Temporal [...] kg/m2 Body Surface Area Calculated 2.06 m2 :26 Comments: orthostatic bp assessment: 12:10pmlying- 170/90 76hrsitting- [...] kg/m2 Body Surface Area Calculated 2.03 m2 4-Hbr-738861:51 Comments: re check 142/80 Pulse 71 /min [...] kg/m2 Body Surface Area Calculated 2.01 m2 91-Glz-543778:36 Pulse 80 /min Comments: Pattern: Regular Respiration [...] kg/m2 Body Surface Area Calculated 2.01 m2 30-Ppp-872733:06 Temperature 97.2 f Comments: Method: Temporal Pulse [...] Area Calculated 2.06 m2 :38 Comments: hearing JesrDonnie Reyes and herrera da glaucoma test done Pulse [...] administered 81mg asa orally at this time [facility] BP Systolic 156 mm[Hg] Comments: Patient Position: [...] Height 0 in Head Circumference 0.00 cm : Pulse 80 /min Comments: Pattern: Regular Respiration [...] 0.00 cm Results Date Description Value Details 98-Aed-719107:55 Basic Metabolic Profile (BMP) Comments: [facility] [address] [place], [place], [id number] GAP 13 (Normal) Range: 5-15 CO2 25.0 mmol/L (Normal) Range: 21.0-32.0 CL 104 mmol/L (Normal) Range: 98-107 K 3.7 mmol/L (Normal) Range: 3.5-5.1 NA 142 mmol/L (Normal) Range: 136-145 CA 9.5 mg/dL (Normal) Range: 8.5-10.1 BUN/CRE 11.0 {RATIO} (Normal) Range: 10-20 Estimated CRCL 29.24 ml/min (Normal) EST GFR - AA 45 mL/min (Abnormal) Comments: GFR Calc EST GFR 37 mL/min (Abnormal) Comments: Non- GFR Calc CREAT,SERUM 1.45 mg/dL (Abnormal) Range: 0.55-1.02 Comments: The validity of the calculated GFR AND GFRAA in patients over70 years has not been determined. Clinical correlation isessential. BUN 16 mg/dL (Normal) Range: 7-18 GLU 196 mg/dL (Abnormal) Range: 74-106 Comments: Fasting Glucose result greater than or equal to 126 mg/dLsuggests DIABETES MELLITUS per A.D.A. criteria.Please note revised GLUCOSE reference range knnwivvsb17/02/2018. 81-Ozh-110570:55 CBC W/Diff, Automated Comments: [facility] [address] [place], [place], [address] Absolute Lymph 0.98 {X10_3/ul} (Normal) Range: 0.83-4.51 Absolute Neut 7.6 {X10_3/uL} (Normal) Range: 2.0-7.7 IM GRAN % 0.200 % (Normal) Range: 0.0-0.9 Comments: IG% - Immature Granulocytes (promyelocytes, myelocytes andmetamyelocytes) > 1% indicates that a LEFT SHIFT is Present. BASO% 0.2 % (Normal) Range: 0-1 EO% 1.2 % (Normal) Range: 0-5 MONO% 4.4 % (Normal) Range: 0-10 LY% 10.8 % (Abnormal) Range: 19-41 NEUT% 83.2 % (Abnormal) Range: 47-70 MPV 10.3 fL (Normal) Range: 6.2-12.0 PLT 256 K/mm3 (Normal) Range: 150-450 RDW SD 45.5 fL (Abnormal) Range: 35.1-43.9 RDW CV 14.1 % (Normal) Range: 11.6-14.6 MCHC 32.7 {g/gl} (Normal) Range: 32-36 MCH 29.4 pg (Normal) Range: 27.0-32.0 MCV 89.7 fL (Normal) Range: 81-99 HCT 37.6 % (Normal) Range: 37-47 HGB 12.3 g/dL (Normal) Range: 12.0-15.0 RBC 4.19 {M/mm3} (Abnormal) Range: 4.2-5.4 WBC 9.1 K/mm3 (Normal) Range: 4.4-11.0 01-Zyv-781713:50 Rapid Strep Test, Office (42936) Rapid Strep Test, Office Negative (Normal) 9-Pfg-911180:58 TSH (65827) Comments: PATIENT NOT FASTINGPERFORMED BY: [employer] Swlykn4227 [facility] [id number] TSH 5.590 {uIU/mL} (Abnormal) Range: 0.450-4.500 3-Zvf-382953:58 T4, FREE (THYROXINE) (03417) Comments: PATIENT NOT FASTINGPERFORMED BY: [employer] Jvwqhq9386 [facility] [id number] T4,Free(Direct) 1.81 ng/dL (Abnormal) Range: 0.82-1.77 :58 T3, FREE (TRIDOTHYRONINE) (27134) Comments: PATIENT NOT FASTINGPERFORMED BY: [employer] Iqqpvq7136 [address] Comver[facility] TechnologiesAt[facility] [id number] Triiodothyronine (T3), Free 2.1 pg/mL (Normal) Range: [...] Muscle ABS Comments: Comments: ANTI-LIVER/KIDNEY MICRO AB [id number] [facility] (refer to report for specific site)refer [...] number MELI-DIRECT Negative (Normal) Comments: Performed at: [address] [id number] Director: Constantine Christianson PhD, Phone: [phone] :44 Ceruloplasmin Comments: Comments: ANTI-LIVER/KIDNEY MICRO AB [id number] [facility] (refer to report for specific site)refer to report for address and phone number CERULOPLAS 1560 22.0 mg/dL (Normal) Range: 19.0-39.0 :44 CMV Acute Antibody IgM Comments: Comments: ANTI-LIVER/KIDNEY MICRO AB [id number] [facility] (refer to report for specific site)refer to report for address and phone number CMVIgM AB < 30.0 AU/mL (Normal) Range: 0.0-29.9 Comments: Negative <30.0 Equivocal 30.0 - 34.9 Positive >34.9A positive result is generally indicative of acuteinfection, reactivation or persistent IgM production. :44 Ferritin Comments: Comments: ANTI-LIVER/KIDNEY MICRO AB [id number] SER/[facility] [address] [place], [address] FERRITIN 236 ng/mL (Normal) Range: 8-252 :44 Free T3 Comments: Comments: ANTI-LIVER/KIDNEY MICRO AB [id number] [facility] [address] [place], [address] FREE T3 1.6 pg/mL (Abnormal) Range: 2.18-3.98 :44 GGTP 64 U/L (Abnormal) Comments: Comments: ANTI-LIVER/KIDNEY MICRO AB [id number] SER/[facility] [address] [place], [address] Range: 5-55 :44 Hepatitis Panel Acute Comments: Comments: ANTI-LIVER/KIDNEY MICRO AB [id number] [facility] (refer to report for specific site)refer to report for address and phone number HEP C AB <0.1 {s/co_ratio} (Normal) Range: 0.0-0.9 Comments: Negative: < 0.8 Indeterminate: 0.8 - 0.9 Positive: > 0.9 The CDC recommends that a positive HCV antibody result be followed up with a HCV Nucleic Acid Amplification test (608868). HB CORE [id number] Negative (Normal) HB SURF AG Negative (Normal) HEP A IgM 6734 Negative (Normal) :44 Liver Profile Comments: Comments: ANTI-LIVER/KIDNEY MICRO AB [id number] SER/[facility] [address] [place], [address] D BILI 0.17 mg/dL (Normal) Range: 0.00-0.30 T BILI 0.60 mg/dL (Normal) Range: 0.20-1.00 ALT 48 U/L (Normal) Range: 13-56 ALK P 93 U/L (Normal) Range: 45-117 AST 43 U/L (Abnormal) Range: 15-37 GLOB 3.5 g/dL (Normal) Range: 2.2-4.2 ALB 3.7 g/dL (Normal) Range: 3.2-5.0 T PROT 7.2 g/dL (Normal) Range: 6.4-8.2 :44 Miscellaneous Lab Procedure Comments: Comments: ANTI-LIVER/KIDNEY MICRO AB [id number] SER/RFTest(s) Ordered: ANTI-LIVER/KIDNEY MICROS AB [id number] SER/[facility] [address] [place], [address] [facility] Comments: TEST RESULT UNITS REF INTERVALLiver- Kidney Microsomal Ab <1.0 Units 0.0 - 20.0 Negative 0.0 - 20.0 LAB (Normal) Equivocal 20.1 - 24.9 Positive >24.9LKM type 1 antibodies are detected in patients withautoimmune hepatitis type 2 and in up to 8% ofpatients wi TEST th chronic HCV infection. TESTING PERFORMED AT [facility]. ORIGINAL REPORT ON FILE IN LAB CONTAINS ADDITIONAL TEST SITE INFORMATION. :44 T4 Free Direct Comments: Comments: ANTI-LIVER/KIDNEY MICRO AB [id number] [facility] [address] [place], [address] T4 FREE DIRECT 1.06 ng/dL (Normal) Range: 0.76-1.46 :44 Thyroid Stim Hormone (TSH) Comments: Comments: ANTI-LIVER/KIDNEY MICRO AB [id number] [facility] [address] [place], [address] TSH 16.40 {uIU/mL} (Abnormal) Range: 0.358-3.74 03-Ffc-58079:44 Transferrin Comments: Comments: ANTI-LIVER/KIDNEY MICRO AB [id number] [facility] (refer to report for specific site)refer to report for address and phone number TRANSFERRN 5566 250 mg/dL (Normal) Range: 200-370 Comments: Performed at: - [facility] [id number] Director: Constantine Christianson PhD, Phone: [phone] 08-Xxi-897510:16 Bedside Glucose Comments: [facility] [address] [address] BEDSIDE GLU 152 mg/dL (Abnormal) Range: 70-110 Comments: MANAGEMENT OF PATIENT CARE PER NURSING PROTOCOL 63-Tws-654749:45 Basic Metabolic Profile (BMP) Comments: [facility] [address] [facility] [place], [address] GAP 8 (Normal) Range: 5-15 [...] A.D.A. criteria.Please note revised GLUCOSE reference range xtncayrsp00/02/2018. 84-Cjv-492398:45 CBC W/Diff, Automated Comments: [facility] [address] [place], [place], [address] Absolute Lymph 1.73 {X10_3/ul} (Normal) Range: 0.83-4.51 [...] Range: 4.4-11.0 :45 Partial Thromboplast Time Comments: [facility] [address] [place], [address] PTT 33.0 s (Normal) Range: 24.1-36.2 :45 Prothrombin Time w/INR Comments: [facility] [address] [place], [address] INR 0.9 (Normal) PROTIME 12.5 s (Normal) Range: 11.7-14.9 44-Mvw-671158:45 Troponin-I Comments: [facility] [address] [place], [place], [address] TROPONIN-I < 0.015 ng/mL Comments: TROPONIN-I EXPECTED VALUES <0.045 Negative 0.045 - 0.590 Consistent with Cardiac Damage > OR = 0.600 Critical Value Not every elevated troponin is indicative of DE. T (Normal) hesevalues should be used with clinical judgement in examiningthe patient's clinical picture for diagnosis. To establisha diagnosis of DE versus myocardial injury, there must be ademonstrated rise and/ or fall in the troponin values, inaddition to ischemic symptoms, EKG changes, new regionalwall motion abnormality, and/or angiographical evidence. PLEASE NOTE: REFERENCE RANGES EDITED 17 Liver-Kidney <1.0 {Units} Comments: PATIENT NOT FASTINGPERFORMED BY: [employer] [facility] HospitalNextFitCritical access hospital [id number] 2:14 Microsomal Ab (Normal) Range: 0.0-20.0 Comments: Negative 0.0 - 20.0 Equivocal 20.1 - 24.9 Positive >24.9 . LKM type 1 antibodies are detected in patients with autoimmune hepatitis type 2 and in up to 8% of patients with chronic HCV infection. 68-Qvd-861651:14 HEPATIC FUNCTION PANEL Comments: PATIENT NOT FASTINGPERFORMED BY: [employer] [facility]6370 [facility] [id number] (72245) ALT (SGPT) 49 [iU]/L (Abnormal) Range: 0-32 AST (SGOT) 57 [iU]/L (Abnormal) Range: 0-40 Alkaline Phosphatase 100 [iU]/L (Normal) Range: 39-117 Bilirubin, Direct 0.14 mg/dL (Normal) Range: 0.00-0.40 Bilirubin, Total 0.4 mg/dL (Normal) Range: 0.0-1.2 Albumin 4.1 g/dL (Normal) Range: 3.5-4.8 Protein, Total 6.8 g/dL (Normal) Range: 6.0-8.5 36-Vkh-736440:14 HEPATITIS PANEL (00818) Comments: PATIENT NOT FASTINGPERFORMED BY: CORTEZ GalindoFre[facility] Nnkopx7832 [facility] [id number] Hep C Virus Ab <0.1 {s/co_ratio} (Normal) Range: 0.0-0.9 Comments: Negative: < 0.8 Indeterminate: 0.8 - 0.9 Positive: > 0.9 . The CDC recommends that a positive HCV antibody result be followed up with a HCV Nucleic Acid Amplification test (127333). Hep B Core Ab, IgM Negative (Normal) HBsAg Screen Negative (Normal) Hep A Ab, IgM Negative (Normal) 58-Jpv-762829:14 ANTIMITOCHONDRIAL ANTIBODY Comments: PATIENT NOT FASTINGPERFORMED BY: CORTEZ [address] [id number] ([address]) Mitochondrial (M2) Antibody <20.0 {Units} (Normal) Range: 0.0-20.0 Comments: Negative 0.0 - 20.0 Equivocal 20.1 - 24.9 Positive >24.9 . Mitochondrial (M2) Antibodies are found in 90-96% of patients with primary biliary cirrhosis. 85-Tva-678335:14 TRANSFERRIN (44508) Comments: PATIENT NOT FASTINGPERFORMED BY: CORTEZ Galindo[address] [id number] Transferrin 226 mg/dL (Normal) Range: 200-370 67-Tzn-679704:14 GGT (GAMMA GLUTAMYLTRANSFERASE) Comments: PATIENT NOT FASTINGPERFORMED BY: [place] [address]27870 [facility] [id number] (09646) GGT 59 [iU]/L (Normal) Range: 0-60 10-Fxf-088765:14 FERRITIN (23270) Comments: PATIENT NOT FASTINGPERFORMED BY: [address] [id number] Ferritin, Serum 545 ng/mL (Abnormal) Range: 15-150 45-Hbp-228463:14 CMV IGM ANTBDY (68060) Comments: PATIENT NOT FASTINGPERFORMED BY: [address] [id number] Cytomegalovirus (CMV) Ab, IgM <30.0 AU/mL (Normal) Range: 0.0-29.9 Comments: Negative <30.0 Equivocal 30.0 - 34.9 Positive >34.9 A positive result is generally indicative of acute infection, reactivation or persistent IgM production. 06-Sxz-981598:14 CERULOPLASMIN (03772) Comments: PATIENT NOT FASTINGPERFORMED BY: [employer] Xcjdrj3944 [facility] [id number] Ceruloplasmin 26.3 mg/dL (Normal) Range: 19.0-39.0 80-Lkz-196802:14 ASM (ANTI SMOOTH MUSCLE Comments: PATIENT NOT FASTINGPERFORMED BY: [employer] Xlqwbf5873 [facility] [id number] ANTIBODY) (30993) Actin (Smooth Muscle) Antibody 5 {Units} (Normal) Range: 0-19 Comments: Negative 0 - 19 Weak positive 20 - 30 Moderate to strong positive >30 . Actin Antibodies are found in 52-85% of patients with autoimmune hepatitis or chronic active hepatitis and in 22% of patients with primary biliary cirrhosis. 97-Quh-693904:14 MELI (ANTINUCLEAR ANTIBODY) Comments: PATIENT NOT FASTINGPERFORMED BY: [employer] Hpsfla0063 [facility] [id number] (85685) MELI Direct Negative (Normal) 42-Vlc-142978:33 HgA1C , Office (01605) HgA1C , Office 7.2 % (Abnormal) Range: 4.6 - 7.1 28-Lzk-831361:38 MELI (ANTINUCLEAR ANTIBODY) Comments: PATIENT NOT FASTINGPERFORMED BY: MachinimaMimbres Memorial HospitalIuusis5530 [facility] [id number] (12705) MELI Direct Negative (Normal) 95-Vdu-273750:38 VITAMIN B-12 (CYANOCOBALAMIN) Comments: PATIENT NOT FASTINGPERFORMED BY: [employer] Tknuqw7989 [facility] [id number] (00977) Vitamin B12 463 pg/mL (Normal) Range: 232-1245 29-Hze-291276:38 TSH (61808) Comments: PATIENT NOT FASTINGPERFORMED BY: [facility] Kzlykk6796 [facility] [id number] TSH 0.062 {uIU/mL} (Abnormal) Range: 0.450-4.500 18-Iml-427178:38 SED RATE ERYTHROCYTE (94415) Comments: PATIENT NOT FASTINGPERFORMED BY: [facility]6370 [facility] [id number] Sedimentation Rate-Westergren 7 mm/h (Normal) Range: 0-40 67-Kac-369413:38 METABOLIC PANEL, COMPREHENSIVE Comments: PATIENT NOT FASTINGPERFORMED BY: [facility]6370 [facility] [id number] (75771) ALT (SGPT) 52 [iU]/L (Abnormal) Range: 0-32 [...] 8-27 Glucose 134 mg/dL (Abnormal) Range: 65-99 25-Apm-928569:38 C-REACTIVE PROTEIN (13326) Comments: PATIENT NOT FASTINGPERFORMED BY: [facility]6370 [facility] [id number] C-Reactive Protein, Quant 4.8 mg/L (Normal) Range: 0.0-4.9 63-Omp-524818:38 CBC (AUTO) (95712) Comments: PATIENT NOT FASTINGPERFORMED BY: [place] 8027870 [facility] [id number] Platelets 248 {x10E3/uL} Range: 150-379 (Normal) RDW [...] mg/L (Abnormal) Comments: PATIENT NOT FASTINGPERFORMED BY: [facility] [id number] BY: [address] [id number] 2:25 Serum Range: 0.6-2.4 Comments: Siemens Immulite 2000 Immunochemiluminometric assay (ICMA) 3-Kzg-881582:25 Immunoglobulins Comments: PATIENT NOT FASTINGPERFORMED BY: [place] 8027870 [facility] [id number] BY: [address] [id number] Iga/Ige/Igg/Igm (GAME) (15891) Immunoglobulin E, Total 259 {IU/mL} (Abnormal) Range: 0-100 Immunoglobulin M, Qn, Serum 113 mg/dL (Normal) Range: 26-217 Immunoglobulin A, Qn, Serum 130 mg/dL (Normal) Range: 64-422 Immunoglobulin G, Qn, Serum 837 mg/dL (Normal) Range: 700-1600 7-Piy-458722:25 LDH (LD) (LACTATE Comments: PATIENT NOT FASTINGPERFORMED BY: [facility]imaRaritan [facility] Medical Center, Old BridgeCdcyoe4801 [facility] [id number] BY: [address] [id number] DEHYDROGENASE) (46220) LDH 195 [iU]/L (Normal) Range: 119-226 5-Glq-349755:25 METABOLIC PANEL, Comments: PATIENT NOT FASTINGPERFORMED BY: [facility] TechnologiesMimbres Memorial HospitalOhmyzx0139 [facility] [id number] BY: [employer] [id number] COMPREHENSIVE (63153) ALT (SGPT) 47 [iU]/L (Abnormal) Range: 0-32 [...] 8-27 Glucose 139 mg/dL (Abnormal) Range: 65-99 9-Uwq-297070:25 CBC, PLATELETS & AUT DIFF Comments: PATIENT NOT FASTINGPERFORMED BY: CORTEZ [employer] Znjtni7056 [facility] [id number] BY: [facility]CoMichael [facility] 589777 [facility] [id number] (53006) Immature Grans (Abs) 0.0 {x10E3/uL} (Normal) Range: [...] 3.77-5.28 WBC 7.2 {x10E3/uL} (Normal) Range: 3.4-10.8 54-Nfc-354222:28 Microscopic Examination Comments: PATIENT NOT FASTINGPERFORMED BY: MachinimaRaritan Bay Medical Center, Old BridgeBfiqle0701 [facility] [id number] Bacteria None seen (Normal) Mucus Threads Present (Normal) Cast Type Hyaline casts (Normal) Casts Present {/lpf} (Abnormal) Epithelial Cells (non renal) 0-10 {/hpf} (Normal) Range: 0 - 10 RBC 0-2 {/hpf} (Normal) Range: 0 - 2 WBC >30 {/hpf} (Abnormal) Range: 0 - 5 84-Mre-965393:24 URINE RANI CULTURE-RADHA COL Comments: PATIENT NOT FASTINGPERFORMED BY: [facility]6370 [facility] [id number] Information: SRC:UC COUNT (85431) Antimicrobial MIHEAD (Normal) Comments: S = Susceptible; I = Intermediate; R = Resistant P = Positive; N = Negative MICS are expressed in micrograms per mL Antibiotic RSLT#1 RSLT#2 RS Susceptibility LT#3 RSLT#4Amoxicillin/Clavulanic Acid SAmpicillin RCefepime SCeftriaxone SCefuroxime SCephalothin SCiprofloxacin SGentamicin SImipenem SNitrofurantoin SPiperacillin RTetracycline STobram ycin STrimethoprim/Sulfa S Result 1 Raoultella Comments: 5,000 Colonies/mL planticola (Abnormal) Urine Final report Culture,Comprehensive (Abnormal) 11-Pci-607916:28 MICROALBUMIN: CREATININE RATIO Comments: PATIENT NOT FASTINGPERFORMED BY: [facility]6370 [facility] [id number] (88577) AND (96928) Alb/Creat Ratio 215.8 {mg/g_creat} (Abnormal) Range: 0.0-30.0 Albumin, Urine 245.4 ug/mL (Normal) Creatinine, Urine 113.7 mg/dL (Normal) 25-Zfs-066000:28 URINALYSIS, W/ MICRO (25638) Comments: PATIENT NOT FASTINGPERFORMED BY: [facility]6370 [facility] [id number] Microscopic Examination See below: (Normal) Comments: Microscopic was indicated and was performed. Nitrite, Urine Negative (Normal) Urobilinogen,Semi-Qn 0.2 mg/dL (Normal) Range: 0.2-1.0 Bilirubin Negative (Normal) Occult Blood Negative (Normal) Ketones Negative (Normal) Glucose Trace (Abnormal) Protein 1+ (Abnormal) WBC Esterase 1+ (Abnormal) Appearance Clear (Normal) Urine-Color Yellow (Normal) pH 5.5 (Normal) Range: 5.0-7.5 Specific [place] 1.025 (Normal) Range: 1.005-1.030 10-Jgh-153655:28 METABOLIC PANEL, COMPREHENSIVE Comments: PATIENT NOT FASTINGPERFORMED BY: [facility] Xyrumy1628 [facility] [id number] ([id number]) ALT (SGPT) 37 [iU]/L (Abnormal) Range: 0-32 [...] Glucose, Serum 179 mg/dL (Abnormal) Range: 65-99 25-Esw-768452:28 CBC, PLATELETS & AUT DIFF Comments: PATIENT NOT FASTINGPERFORMED BY: [facility] WirelessTr[facility]6370 [facility] [id number] (44929) Immature Grans (Abs) 0.0 {x10E3/uL} (Normal) Range: [...] 3.77-5.28 WBC 9.3 {x10E3/uL} (Normal) Range: 3.4-10.8 11-Srx-015205:28 TSH (THYROID STIMULATING Comments: PATIENT NOT FASTINGPERFORMED BY: [facility] [place] [address] [id number] HORMONE) (81642) TSH 23.220 {uIU/mL} (Abnormal) Range: 0.450-4.500 92-Lwi-277547:28 LIPID PANEL (62576) Comments: PATIENT NOT FASTINGPERFORMED BY: [address] Streetox RoadDublin [place] [id number] LDL/HDL Ratio 1.7 {ratio_units} (Normal) Range: 0.0-3.2 Comments: LDL/HDL Ratio Men Women 1/2 Avg.Risk 1.0 1.5 Av g.Risk 3.6 3.2 2X Avg.Risk 6.2 5.0 3X Avg.Risk 8.0 6.1 LDL Cholesterol Calc 83 mg/dL (Normal) Range: 0-99 VLDL Cholesterol Priscilla 42 mg/dL (Abnormal) Range: 5-40 HDL Cholesterol 48 mg/dL (Normal) Triglycerides 208 mg/dL (Abnormal) Range: 0-149 Cholesterol, Total 173 mg/dL (Normal) Range: 100-199 50-Grb-624301:28 CALCIFEDIOL (99477) Comments: PATIENT NOT FASTINGPERFORMED BY: [facility]Tr[facility]6370 [facility] [id number] Vitamin D, 25-Hydroxy 25.4 ng/mL (Abnormal) Range: 30.0-100.0 Comments: Vitamin D deficiency has been defined by the [place] ofMedicine and an Endocrine Society practice guideline as alevel of serum 25-OH vitamin D less than 20 ng/mL (1,2).The Endocrine Society went on to further define vitamin Dinsufficiency as a level between 21 and 29 ng/mL (2).1. IOM ([place] of Medicine). 2010. Dietary reference intakes for calcium and D. [place]: The National Academies Press.2. Rachel MF, Yael NC, Dunia HERRERA, et al. Evaluation, treatment, and prevention of vitamin D deficiency: an Endocrine Society clinical practice guideline. JCEM. 2010; 96(7):1911-30. 83-Dxg-203824:40 Basic Metabolic Profile (BMP) Comments: 'TROP' Serial specimen #1, #2, #3, or #4: [address] [place] [address] [address] [place], [address] GAP 11 (Normal) Range: 5-15 CO2 24.0 [...] 126 mg/dLsuggests DIABETES MELLITUS per A.D.A. criteria. 77-Uzs-099545:40 BNP,B-Type NATRIURETIC PEPTIDE Comments: [facility] Pyljgdphun6070 [facility]. [place], [place], [address] B-TYPE SANJU PEP 13.3 pg/mL (Normal) Range: 0-100 75-Cbd-779791:40 CBC W/Diff, Automated Comments: [facility] Aervjnmsov3131 [facility]. [place], [place], [address] Absolute Lymph 1.65 {X10_3/ul} (Normal) Range: 0.83-4.51 [...] 4.2-5.4 WBC 4.1 K/mm3 (Abnormal) Range: 4.4-11.0 24-Vsd-638272:40 Troponin-I Comments: 'TROP' Serial specimen #1, #2, #3, or #4: [address] [place] [address] Kbamfqriuj8333 [facility] HospitaldeepikaAmorita, [place], [address] TROPONIN-I < 0.02 ng/mL (Normal) Comments: TROPONIN-I EXPECTED VALUES <0.05 NEGATIVE 0.06 - 0.59 AT RISK OF DE > OR = 0.60 SUGGEST DE 85-Xgv-944485:08 Microscopic Examination Comments: PATIENT WAS FASTINGPERFORMED BY: [employer] LabCoPieceable Hjzhij4479 [facility] [id number] Bacteria Few (Normal) Mucus Threads Present (Normal) Cast Type Hyaline casts (Normal) Casts Present {/lpf} (Abnormal) Epithelial Cells (non renal) 0-10 {/hpf} (Normal) Range: 0 - 10 RBC 0-2 {/hpf} (Normal) Range: 0 - 2 WBC 11-30 {/hpf} (Abnormal) Range: 0 - 5 68-Xsu-463507:08 CALCIFIDIOL (21685) VIT D 25 Comments: PATIENT WAS FASTINGPERFORMED BY: [employer] LabCoPieceable Qtnfjx8714 [facility] [id number] Vitamin D, 25-Hydroxy 33.5 ng/mL (Normal) Range: 30.0-100.0 Comments: Vitamin D deficiency has been defined by the [place] ofMedicine and an Endocrine Society practice guideline as alevel of serum 25-OH vitamin D less than 20 ng/mL (1,2).The Endocrine Society went on to further define vitamin Dinsufficiency as a level between 21 and 29 ng/mL (2).1. IOM ([place] of [place]). 2010. Dietary reference intakes for calcium and D. [place]: The National Academies Press.2. Rachel MF, Yael MARLEY, Dunia HERRERA, et al. Evaluation, treatment, and prevention of vitamin D deficiency: an Endocrine Society clinical practice guideline. JCEM. 2010; 96(7):1911-30. 27-Ved-332738:08 TSH (07420) Comments: PATIENT WAS FASTINGPERFORMED BY: [facility] InternationalCritical access hospital [id number] TSH 3.700 {uIU/mL} (Normal) Range: 0.450-4.500 35-Vyy-335844:08 LIPID PANEL (37620) Comments: PATIENT WAS FASTINGPERFORMED BY: [facility] [id number] LDL/HDL Ratio 1.8 {ratio_units} (Normal) Range: 0.0-3.2 Comments: LDL/HDL Ratio Men Women 1/2 Avg.Risk 1.0 1.5 Av g.Risk 3.6 3.2 2X Avg.Risk 6.2 5.0 3X Avg.Risk 8.0 6.1 LDL Cholesterol Calc 84 mg/dL (Normal) Range: 0-99 VLDL Cholesterol Priscilla 49 mg/dL (Abnormal) Range: 5-40 HDL Cholesterol 46 mg/dL (Normal) Triglycerides 243 mg/dL (Abnormal) Range: 0-149 Cholesterol, Total 179 mg/dL (Normal) Range: 100-199 09-Hoa-323845:08 URINALYSIS, W/ MICRO (91834) Comments: PATIENT WAS FASTINGPERFORMED BY: [facility] [id number] Microscopic Examination See below: (Normal) Comments: Microscopic was indicated and was performed. Nitrite, Urine Negative (Normal) Urobilinogen,Semi-Qn 0.2 mg/dL (Normal) Range: 0.2-1.0 Bilirubin Negative (Normal) Occult Blood Negative (Normal) Ketones Negative (Normal) Glucose Negative (Normal) Protein 2+ (Abnormal) WBC Esterase 1+ (Abnormal) Appearance Clear (Normal) Urine-Color Yellow (Normal) pH 5.5 (Normal) Range: 5.0-7.5 Specific [place] >=1.030 (Abnormal) Range: 1.005-1.030 70-Vfx-192361:08 MICROALBUMIN: CREATININE RATIO Comments: PATIENT WAS FASTINGPERFORMED BY: Entefy70 [facility]anexCritical access hospital [id number] ([id number]) AND (12813) Microalb/Creat Ratio 246.3 {mg/g_creat} (Abnormal) Range: 0.0-30.0 Microalbumin, Urine 433.7 ug/mL (Normal) Comments: Results confirmed ondilution. Creatinine, Urine 176.1 mg/dL (Normal) 63-Mxa-310146:08 METABOLIC PANEL, COMPREHENSIVE Comments: PATIENT WAS FASTINGPERFORMED BY: Entefy70 EsanexCritical access hospital [id number] (85599) ALT (SGPT) 26 [iU]/L (Normal) Range: 0-32 [...] Glucose, Serum 158 mg/dL (Abnormal) Range: 65-99 94-Lux-229629:08 CBC W/AUTO DIFF WBC (15255) Comments: PATIENT WAS FASTINGPERFORMED BY: [facility]CoR[facility], Old BridgeZfzazj2686 [facility] [id number] Immature Grans (Abs) 0.0 {x10E3/uL} (Normal) Range: [...] (Normal) Range: 3.4-10.8 :31 HgA1C , Office (77589) HgA1C , Office 6.6 % (Normal) Range: 4.6 - 7.1 :31 Blood Glucose , Office (99751) Blood Glucose , Office 143 (Normal) :45 CBC W/Diff, Automated Comments: [facility] [address] [place], [place], [address] Absolute Lymph 1.46 {X10_3/ul} (Normal) Range: 0.83-4.51 [...] 4.2-5.4 WBC 12.9 K/mm3 (Abnormal) Range: 4.4-11.0 :45 Comprehensive Metabolic Profil Comments: [facility] Kod[address]yz[address] [place], [place], [address] GAP 8 (Normal) Range: 5-15 CO2 27.0 [...] 126 mg/dLsuggests DIABETES MELLITUS per A.D.A. criteria. 7-Lbs-300558:45 Prothrombin Time w/INR Comments: [facility] [address] [place], [place], [address] INR 0.9 (Normal) PROTIME 11.6 s (Abnormal) Range: 11.7-14.9 4-Occ-938860:12 HgA1C , Office (24365) HgA1C , Office 6.5 % (Normal) Range: 4.6 - 7.1 7-Rul-760551:12 Blood Glucose , Office (73134) Blood Glucose , Office 122 (Normal) :39 Lipid Profile Comments: [facility] [address]bljs[address] [place], [address] VLDL 39 mg/dL (Normal) Range: 5-40 LDL [...] to report for address and phone number METHYL [phone] nmol/L (Normal) Range: 0-378 Comments: Performed at: [facility] [address] [id number] Director: Frantz Josue MD, Phone: [phone] :[phone] Vitamin B12 531 pg/mL (Normal) Comments: [facility] K[address]ckdijmh[address] [place], [address] Range: 211-911 :39 Vitamin D,25 Hydroxy Comments: [facility] Lnauqnxuct[address] [place], [address] Vitamin D 25-OH 44.7 ng/mL (Normal) Comments: Vitamin D 25(OH) Status Range Deficiency <20 ng/mL (50nmol/L) Insuffciency 20 - 30 ng/mL (50 - 75 nmol/L) Sufficiency 30 - 100 ng/mL (75 - 250 nmol/L) Toxicity >100 ng/mL (>250 nmol/L) :29 Bedside Glucose Comments: [facility] LaboratoryPoint of Mmhx[address] [place] [address] BEDSIDE GLU 139 mg/dL (Abnormal) Range: 70-110 Comments: No Action RequiredMANAGEMENT OF PATIENT CARE PER NURSING PROTOCOL COLON BIOPSY (CHOOSE See Note (Normal) Comments: [facility] [address] [place], [address] :54 SITE) Comments: Patient: MARICRUZ GRIGSBY : 1940 (76/F) Acct Num: [id number] Phys: NickyConstantine Unit Num: [id number] Loc: LABSPEC Specimen: [id number] Received: 11/05/16 - 1631 Spe c Type: [...] one cassette. / RY:edita 11/06/16 TC:1 CPT: 75222 x2 HEADER OPERATION: Colonoscopy with polypectomy PRE-OP [...] Signed Zane Elliott 11/07/16 <signature on file> :47 CBC W/Diff, Automated Comments: [facility] Drkedjmdct[address] [place], [place], [address] Absolute Lymph 1.88 {X10_3/ul} (Normal) Range: 0.83-4.51 [...] 4.2-5.4 WBC 8.8 K/mm3 (Normal) Range: 4.4-11.0 14-Ntz-130466:42 Comprehensive Metabolic Profil Comments: Order Date: 10/10/16Order Info: 0786-1 - *CMP Complete Metabolic PanelOrder Info: 85770-7 - *IBC Iron \E AND E\ Total Iron Binding CapacityOrder Info: 2276-4 - *FerritinComments: Reason:Order Date: 10/10/16Order Info: 17919-2 - *[place]LAMBDA - [place] Lamda Light ChainsComments: Reason:[facility] [address]pttdmp[address] [place], [place], [address] GAP 9 (Normal) Range: 5-15 CO2 28.0 [...] <126 mg/dLsuggests IMPAIRED HOMEOSTASIS per A.D.A. criteria. 08-Bss-480969:42 Ferritin Comments: Order Date: 10/10/16Order Info: 0786-1 - *CMP Complete Metabolic PanelOrder Info: 38222-3 - *IBC Iron \E AND E\ Total Iron Binding CapacityOrder Info: 2276-4 - *FerritinComments: Reason:Order Date: 10/10/16Order Info: 98334-0 - *[place]DA - [place] Lamda Light ChainsComments: Reason:[facility] [address] [place], [place], [address] FERRITIN 45 ng/mL (Normal) Range: 8-252 57-Pcw-485134:42 DEEPALI + Protein Elect, Serum Comments: Order Date: 10/10/16Order Info: 0282-1 - *IMEL DEEPALI + Prot Elec, Serum 1495Order Info: 18099-6 - *[place] Lamda Light ChainsOrder Date: 10/10/16Order Info: 0282-1 - *IMEL DEEPALI + Prot Elec, Serum 1495Order Info: 89391-1 - *[place] - [place] Lamda Light ChainsOrder Date: 10/10/16Order Info: 07463-8 - *[place] - [place] Lamda Light ChainsIs Patient Fasting? NComments: Reason:[facility] (refer to report for specific site)refer to report for address and phone number NOTE: Comment (Normal) Comments: Protein electrophoresis scan will follow via computer,mail, or executive vice president business development delivery. DEEPALI RESULT,S Comment (Normal) Comments: Immunofixation shows IgG monoclonal protein with lambdalight chain specificity. A/G RATIO 1.4 (Normal) Range: 0.7-1.7 GLOBULIN, TOTAL 2.8 g/dL (Normal) Range: 2.2-3.9 M-SPIKE 0.3 g/dL (Abnormal) GAMMA GLOBULIN 0.8 g/dL (Normal) Range: 0.4-1.8 BETA GLOBULIN 0.9 g/dL (Normal) Range: 0.7-1.3 VTTTB-7-WUVK 0.9 g/dL (Normal) Range: 0.4-1.0 BARBT-8-TOGF 0.2 g/dL (Normal) Range: 0.0-0.4 ALBUMIN 3.7 g/dL (Normal) Range: 2.9-4.4 IMMUNOGL M 100 mg/dL (Normal) Range: 26-217 IMMUNO A 106 mg/dL (Normal) Range: 64-422 IMMUNO G 693 mg/dL (Abnormal) Range: 700-1600 PROTEIN,TOTAL 6.5 g/dL (Normal) Range: 6.0-8.5 46-Mvs-719865:42 Iron+Iron Binding Capacity Comments: Order Date: 10/10/16Order Info: 0786-1 - *CMP Complete Metabolic PanelOrder Info: 72511-5 - *IBC Iron \E AND E\ Total Iron Binding CapacityOrder Info: 2276-4 - *FerritinComments: Reason:Order Date: 10/10/16Order Info: 95361-0 - *[place] - [place] Lamda Light ChainsComments: Reason:[facility] [address]iularxam[address] [place], [place], [address] IRON SATURATION 15.9 % (Normal) Range: 15.0-55.0 IRON 49 ug/dL (Abnormal) Range: 50-170 TIBC 309 ug/dL (Normal) Range: 250-450 70-Drp-972780:42 [place] Lambda Light Chains Comments: Order Date: 10/10/16Order Info: 0282-1 - *IMEL DEEPALI + Prot Elec, Serum 1495Order Info: 38560-9 - *[place] Lamda Light ChainsOrder Date: 10/10/16Order Info: 0282-1 - *IMEL DEEPALI + Prot Elec, Serum 1495Order Info: 52592-3 - *[place] - [place] Lamda Light ChainsOrder Date: 10/10/16Order Info: 39899-7 - *[place] Lamda Light ChainsIs Patient Fasting? NComments: Reason:[facility] (refer to report for specific site)refer to report for address and phone number KAPPA/LAMBDA % 0.98 (Normal) Range: 0.26-1.65 Comments: Performed at: - [facility] [id number] Director: Constantine Christianson PhD, Phone: [phone] FR LAMBDA LT CH 19.06 mg/L (Normal) Range: 5.71-26.30 FR KAPPA LT CHN 18.62 mg/L (Normal) Range: 3.30-19.40 49-Bir-233566:06 VITAMIN B-12 (CYANOCOBALAMIN) Comments: PATIENT NOT FASTINGPERFORMED BY: [facility] [id number] (98033) Vitamin B12 709 pg/mL (Normal) Range: 211-946 43-Gzd-189807:45 Blood Glucose , Office (17850) Blood Glucose , Office 104 (Normal) 18-Dmf-139981:45 HgA1C , Office (16777) HgA1C , Office 6.7 % (Normal) Range: 4.6 - 7.1 :54 CBC W/Diff, Automated Comments: [facility] [address] [place], [place], [address] Absolute Lymph 1.51 {X10_3/ul} (Normal) Range: 0.83-4.51 [...] 4.2-5.4 WBC 7.0 K/mm3 (Normal) Range: 4.4-11.0 :54 Comprehensive Metabolic Profil Comments: [facility] [address]om[address] [place], [place], [address] GAP 8 (Normal) Range: 5-15 CO2 28.0 [...] per A.D.A. criteria. :54 Lipid Profile Comments: [facility] Whys[address]zc[address] [place], [place], [address] VLDL 38 mg/dL (Normal) Range: 5-40 LDL [...] High Risk :54 Microalb:Creat Ratio,Random UR Comments: [facility] [address] [place], [place], [address] MALB:CREAT 223.2 {mg/g_CRE} (Abnormal) MICROALBUMIN,UR 250.0 mg/L (Normal) UR CREAT 112.00 mg/dL (Normal) :54 Thyroid Stim Hormone (TSH) Comments: [facility] [address] [place] [address], [address] TSH 1.13 {uIU/mL} (Normal) Range: 0.358-3.74 :54 Urinalysis, Complete Comments: How was Urine Obtained? [facility] [address] [place], [place], [address] MUCUS, URINE 0 SEEN {/hpf} (Normal) BACTERIA [...] (Normal) CLARITY Clear (Normal) COLOR Yellow (Normal) 61-Kjl-51778:54 Vitamin D,25 Hydroxy Comments: [facility] Flfdaahzkj86[address] [place], [address] Vitamin D 25-OH 31.6 ng/mL (Normal) Comments: Vitamin D 25(OH) Status Range Deficiency <20 ng/mL (50nmol/L) Insuffciency 20 - 30 ng/mL (50 - 75 nmol/L) Sufficiency 30 - 100 ng/mL (75 - 250 nmol/L) Toxicity >100 ng/mL (>250 nmol/L) 98-Aml-503390:07 VITAMIN B-12 (CYANOCOBALAMIN) Comments: PATIENT NOT FASTINGPERFORMED BY: G2 Web Servicesox RoadDublin [place] [id number] (49894) Vitamin B12 1119 pg/mL (Abnormal) Range: 211-946 72-Cbt-864275:23 Microscopic Examination Comments: PATIENT WAS FASTINGPERFORMED BY: [employer]6370 Waller RoadDublin [place] [id number] Bacteria Few (Normal) Mucus Threads Present (Normal) Epithelial Cells (non renal) 0-10 {/hpf} (Normal) Range: 0 - 10 RBC 0-2 {/hpf} (Normal) Range: 0 - 2 WBC >30 {/hpf} (Abnormal) Range: 0 - 5 84-Fjg-950177:23 VITAMIN B-12 (CYANOCOBALAMIN) Comments: PATIENT WAS FASTINGPERFORMED BY: LabArchiveslin6370 [address] Comverging TechnologiesDublin [place] [id number] (59651) Vitamin B12 >2000 pg/mL (Abnormal) Range: 211-946 98-Cry-527033:23 TSH (13742) Comments: PATIENT WAS FASTINGPERFORMED BY: [employer] LabBeleza na Web Mulnfm2891 Waller RoadDublin [place] [id number] TSH 5.380 {uIU/mL} (Abnormal) Range: 0.450-4.500 18-Rme-811284:23 URINALYSIS, W/ MICRO (81080) Comments: PATIENT WAS FASTINGPERFORMED BY: [facility] WirelessTrinity Health [facility]onia6370 [facility] [id number] Microscopic Examination See below: (Normal) Comments: Microscopic was indicated and was performed. Nitrite, Urine Negative (Normal) Urobilinogen,Semi-Qn 0.2 mg/dL (Normal) Range: 0.2-1.0 Bilirubin Negative (Normal) Occult Blood Negative (Normal) Ketones Negative (Normal) Glucose Negative (Normal) Protein Trace (Normal) WBC Esterase 2+ (Abnormal) Appearance Clear (Normal) Urine-Color Yellow (Normal) pH 6.0 (Normal) Range: 5.0-7.5 Specific [place] 1.022 (Normal) Range: 1.005-1.030 58-Ado-129620:23 MICROALBUMIN: CREATININE RATIO Comments: PATIENT WAS FASTINGPERFORMED BY: [facility] WirelessTrinity Health [facility]onia6370 [facility] [id number] (63425) AND (07265) Microalb/Creat Ratio 24.2 {mg/g_creat} (Normal) Range: 0.0-30.0 Microalbumin, Urine 35.4 ug/mL (Normal) Creatinine, Urine 146.0 mg/dL (Normal) 30-Edg-227798:23 METABOLIC PANEL, COMPREHENSIVE Comments: PATIENT WAS FASTINGPERFORMED BY: [facility] WirelessTr[facility]6370 [facility] [id number] (59131) ALT (SGPT) 25 [iU]/L (Normal) Range: 0-32 [...] Glucose, Serum 143 mg/dL (Abnormal) Range: 65-99 93-Gfi-031070:23 CBC W/AUTO DIFF WBC (32898) Comments: PATIENT WAS FASTINGPERFORMED BY: LabCoRar[facility], Old BridgeAndhku9276 [facility] [id number] Immature Grans (Abs) 0.0 {x10E3/uL} (Normal) Range: [...] 3.77-5.28 WBC 7.4 {x10E3/uL} (Normal) Range: 3.4-10.8 :23 CALCIFIDIOL (64860) VIT D 25 Comments: PATIENT WAS FASTINGPERFORMED BY: [facility]6370 [facility] [id number] Vitamin D, 25-Hydroxy 28.9 ng/mL (Abnormal) Range: 30.0-100.0 Comments: Vitamin D deficiency has been defined by the [place] ofMer[facility] Hospitalcine and an Endocrine Society practice guideline as alevel of serum 25-OH vitamin D less than 20 ng/mL (1,2).The Endocrine Society went on to further define vitamin Dinsufficiency as a level between 21 and 29 ng/mL (2).1. IOM ([place] of Medicine). 2010. Dietary reference intakes for calcium and D. [place]: The National Academies Press.2. Rachel MF, Yael NC, Dunia HERRERA, et al. Evaluation, treatment, and prevention of vitamin D deficiency: an Endocrine Society clinical practice guideline. JCEM. 2010; 96(7):1911-30. :22 HgA1C , Office (38005) HgA1C , Office 7.1 % (Normal) Range: 4.6 - 7.1 :22 Blood Glucose , Office (82641) Blood Glucose , Office 171 (Normal) 9-Svz-541771:10 Basic Metabolic Profile (BMP) Comments: Serial Specimen #1, #2 or #3? 1'TROP' Serial specimen #1, #2, #3, or #4: [facility] Qceqmerqse7[address] [place], [place], [address] GAP 8 (Normal) Range: 5-15 CO2 28.0 [...] 126 mg/dLsuggests DIABETES MELLITUS per A.D.A. criteria. 2-Usx-915539:10 CBC W/Diff, Automated Comments: [facility] [address]vesconr[address] [place], [place], [address] Absolute Lymph 1.32 {X10_3/ul} (Normal) Range: 0.83-4.51 [...] Serial specimen #1, #2, #3, or #4: [address] [place] [address] [place] [address], [address] CKRI 1.3 % (Normal) Range: 0.0-1.4 [...] Serial specimen #1, #2, #3, or #4: [address] [place] [address] [place] [address], [address] TROPONIN-I < 0.02 ng/mL (Normal) Comments: TROPONIN-I EXPECTED VALUES <0.05 NEGATIVE 0.06 - 0.59 AT RISK OF DE > OR = 0.60 SUGGEST DE 4-Cnh-311353:55 Blood Glucose , Office (74628) Blood Glucose , Office 117 (Normal) 9-Xxc-139859:36 HgA1C , Office (69159) HgA1C , Office 7.1 % (Normal) Range: 4.6 - 7.1 :52 CBC W/Diff, Automated Comments: CBCD WITH WBC PER ORDERLicking Memorial Hospital [address]jinbm[address] [place], [address] Absolute Lymph 1.67 {X10_3/ul} (Normal) Range: 0.83-4.51 [...] 4.2-5.4 WBC 7.7 K/mm3 (Normal) Range: 4.4-11.0 :52 Comprehensive Metabolic Profil Comments: [facility] [address] [place], [place], [address] GAP 10 (Normal) Range: 5-15 CO2 26.0 [...] per A.D.A. criteria. :52 Immunofixation Urine Comments: [facility] (refer to report for specific site)refer to report for address and phone number DEEPALI Urine Comment (Normal) Comments: Immunofixation shows IgG monoclonal protein with lambdalight chain specificity.Bence Jorge Protein positive; lambda type.Performed at: CB - [facility] [address]zmzt[address]909 [place] [address] 1269Lab Dire ctor: Constantine Christianson PhD, Phone: [phone] :[phone] Immunofixation, Serum Comments: [facility] (refer to report for specific site)refer to report for address and phone number DEEPALI RESULT,S Comment (Normal) Comments: Immunofixation shows IgG monoclonal protein with lambdalight chain specificity. IMMUNOGL M 112 mg/dL (Normal) Range: 26-217 IMMUNO A 110 mg/dL (Normal) Range: 64-422 IMMUNO G 783 mg/dL (Normal) Range: 700-1600 :52 [place] Lambda Light Chains Comments: [facility] (refer to report for specific site)refer to report for address and phone number KAPPA/LAMBDA % 1.03 (Normal) Range: 0.26-1.65 FR LAMBDA LT CH 21.11 mg/L (Normal) Range: 5.71-26.30 FR KAPPA LT CHN 21.66 mg/L (Abnormal) Range: 3.30-19.40 :52 Lipid Profile Comments: [facility] [address] [place], [address] ; review OV 12/02/15 VLDL 35 mg/dL [...] High Risk :52 Microalb:Creat Ratio,Random UR Comments: [facility] [address] [place], [address] MALB:CREAT 44.5 {mg/g_CRE} (Abnormal) MICROALBUMIN,UR 68.1 mg/L (Normal) UR CREAT 153.00 mg/dL (Normal) :52 Vitamin B12 268 pg/mL (Normal) Comments: [facility] [address]vxy[address] [place], [address]23[address] Range: 211-911 Comments: ADDENDA: normal and has f/u this saturday:52 Vitamin D,25 Hydroxy Comments: [facility] [address] [place], [address]86[address] Vitamin D 25-OH 48.8 ng/mL (Normal) Comments: Vitamin D 25(OH) Status Range Deficiency <20 ng/mL (50nmol/L) Insuffciency 20 - 30 ng/mL (50 - 75 nmol/L) Sufficiency 30 - 100 ng/mL (75 - 250 nmol/L) Toxicity >100 ng/mL (>250 nmol/L) :15 Basic Metabolic Profile (BMP) Comments: [facility] [address]kmv[address]cd[address] [place], [address] GAP 10 (Normal) Range: 5-15 CO2 25.0 [...] A.D.A. criteria. :15 CBC W/Diff, Automated Comments: [facility] [address] [place], [place], [address] RED CELL MORPH NORM C+C {NORMAL} (Normal) [...] 4.2-5.4 WBC 11.4 K/mm3 (Abnormal) Range: 4.4-11.0 :08 HgA1C , Office (73453) HgA1C , Office 6.8 % (Normal) Range: 4.6 - 7.1 6-Xbe-665720:30 FERRITIN (40829) Comments: PATIENT WAS FASTINGPERFORMED BY: LabTrinity [facility]6370 [facility] [id number] Ferritin, Serum 121 ng/mL (Normal) Range: 15-150 8-Fqz-171449:30 IRON (48083) Comments: PATIENT WAS FASTINGPERFORMED BY: [facility]6370 [facility] [id number] Iron, Serum 56 ug/dL (Normal) Range: 35-155 [...] - 159 >60 years 27 - 139 4-Xvy-973260:30 TSH (64946) Comments: PATIENT WAS FASTINGPERFORMED BY: [facility] [id number] TSH 1.660 {uIU/mL} (Normal) Range: 0.450-4.500 3-Num-478201:30 LIPID PANEL (02856) Comments: PATIENT WAS FASTINGPERFORMED BY: [place] [id number] [facility] [id number] LDL/HDL Ratio 2.1 {ratio_units} (Normal) Range: 0.0-3.2 [...] Cholesterol, Total 190 mg/dL (Normal) Range: 100-199 7-Vrx-489646:30 METABOLIC PANEL, COMPREHENSIVE Comments: PATIENT WAS FASTINGPERFORMED BY: [facility] [id number] [id number] ([id number]) ALT (SGPT) 24 [iU]/L (Normal) Range: 0-32 [...] Glucose, Serum 122 mg/dL (Abnormal) Range: 65-99 8-Zvl-336150:30 Vitamin D Hydroxy (12974) Comments: PATIENT WAS FASTINGPERFORMED BY: [facility] [place] [facility] [id number] Vitamin D, 25-Hydroxy 25.3 ng/mL (Abnormal) Range: 30.0-100.0 Comments: Vitamin D deficiency has been defined by the [place] ofMedicine and an Endocrine Society practice guideline as alevel of serum 25-OH vitamin D less than 20 ng/mL (1,2).The Endocrine Society went on to further define vitamin Dinsufficiency as a level between 21 and 29 ng/mL (2).1. IOM ([place] of Medicine). 2010. Dietary reference intakes for calcium and D. [place]: The National Academies Press.2. Rachel MF, Yael MARLEY, Dunia HERRERA, et al. Evaluation, treatment, and prevention of vitamin D deficiency: an Endocrine Society clinical practice guideline. JCEM. 2010; 96(7):1911-30. 7-Mcv-638111:30 CBC W/AUTO DIFF WBC Comments: PATIENT WAS FASTINGPERFORMED BY: [facility] Fixijb0976 [facility] [id number] Information: [id number] (41745) Immature Grans (Abs) 0.0 {x10E3/uL} (Normal) Range: [...] 3.77-5.28 WBC 8.2 {x10E3/uL} (Normal) Range: 3.4-10.8 :30 serum free light chains Comments: PATIENT WAS FASTINGPERFORMED BY: [facility], Old BridgeKxiblb2423 [facility] [id number] (82125) [place]/Lambda Ratio,S 0.81 (Normal) Range: 0.26-1.65 Free Lambda Lt Chains,S 17.93 mg/L (Normal) Range: 5.71-26.30 Free [place] Lt Chains,S 14.55 mg/L (Normal) Range: 3.30-19.40 :08 urine immunofixation (39831) Comments: PATIENT NOT FASTINGPERFORMED BY: MachinimaDustin [place] 4476470 [facility] [id number] Information: SRC:UR [id number] DEEPALI Interpretation:U IFEGL (Normal) Comments: 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 :30 serum immunofixation (83546) Comments: PATIENT WAS FASTINGPERFORMED BY: [facility], Old BridgeEtqqzc2365 [facility] [id number] Immunoglobulin M, Qn, Serum 99 mg/dL (Normal) Range: 40-230 Immunoglobulin A, Qn, Serum 107 mg/dL (Normal) Range: 91-414 Immunoglobulin G, Qn, Serum 814 mg/dL (Normal) Range: 700-1600 Immunofixation Result, Serum IFEGL (Normal) Comments: Immunofixation shows IgG monoclonal protein with lambda light chainspecificity. :49 CBC W/Diff, Automated Comments: [facility] [address] [place], [address] Absolute Lymph 0.99 {X10_3/ul} (Normal) [...] K/mm3 (Normal) Range: 4.4-11.0 :49 Ferritin Comments: [address] [place], [place], [phone] FERRITIN 80 ng/mL (Normal) Range: 8-252 :49 Hemoglobin A1c Comments: [address] [place], [address] HGB A1C 6.4 % (Abnormal) Range: 4.2-6.3 :49 Iron Comments: [address] [place], [address] IRON 43 ug/dL (Abnormal) Range: 50-170 :49 Iron Binding Capacity,Total Comments: [address] [place], [address] TIBC 336 ug/dL (Normal) Range: 250-450 :49 Protein Electro.Ur-Random Comments: [facility] (refer to report for specific site)refer to report for address and phone number M-SPIKE,U Test not performed (Normal) GAMMA GLOB,U Test not performed (Normal) Comments: Test not performed BETA GLOB,U Test not performed (Normal) Comments: Test not performed NZHAB-5-VXYO,U Test not performed (Normal) Comments: Test not performed NJTVA-7-LPHS,U Test not performed (Normal) Comments: Test not [...] electrophoresis scan will follow via computer,mail, or executive vice president business development delivery. NOTE: Comment (Normal) Comments: The SPE [...] electrophoresis scan will follow via computer,mail, or executive vice president business development delivery. A/G RATIO 1.5 (Normal) Range: 0.7-2.0 [...] 6.0-8.5 :49 Thyroid Stim Hormone (TSH) Comments: [facility] [address] [place], [place], [address] TSH 4.43 {uIU/mL} (Abnormal) Range: 0.358-3.74 :49 Vitamin B12 431 pg/mL (Normal) Comments: [facility] [address] [place], [place], [address] Range: 211-911 Comments: ADDENDA: has apt today :58 AFP, Tumor Marker Comments: Is Patient ? [facility] (refer to report for specific site)refer to report for address and phone number AFP TUMOR 2253 4.9 ng/mL (Normal) Range: 0.0-8.3 Comments: [employer] ECLIA methodologyPerformed at: [facility] [id number] Director: Constantine Christianson PhD, Phone: [phone] :[phone] CBC W/Diff, Automated Comments: [facility] [address] [place], [place], [id number] Absolute Lymph 1.46 {X10_3/ul} (Normal) Range: 0.83-4.51 [...] 4.2-5.4 WBC 7.3 K/mm3 (Normal) Range: 4.4-11.0 01-Vkf-92818:58 Comprehensive Metabolic Profil Comments: [facility] [address] [place], [place], [address] GAP 7 (Normal) Range: 5-15 CO2 28.0 [...] per A.D.A. criteria. :58 Lipid Profile Comments: [facility] [address] [place], [address] ; non-emergent and has apth this week [...] :58 Vitamin B12 278 pg/mL (Normal) Comments: [facility] [address] [place], [address] Range: 211-911 :58 Vitamin D,25 Hydroxy Comments: [facility] [address] [place], [address] Vitamin D 25-OH 38.4 ng/mL (Normal) Comments: Vitamin D 25(OH) Status Range Deficiency <20 ng/mL (50nmol/L) Insuffciency 20 - 30 ng/mL (50 - 75 nmol/L) Sufficiency 30 - 100 ng/mL (75 - 250 nmol/L) Toxicity >100 ng/mL (>250 nmol/L) 92-Auj-986191:07 HgA1C , Office (09831) HgA1C , Office 6.5 % (Normal) Range: 4.6 - 7.1 :43 AFP, Tumor Marker Comments: Is Patient ? NTest performed at:[facility] [address] [place] [address] AFP TUMOR 2253 4.8 ng/mL (Normal) Range: 0.0-8.3 Comments: [employer] ECLIA methodologyPerformed at: CB - [facility] [address] [id number] Director: Arnold Jefferson PhD, Phone: [phone] :[phone] CBC W/Diff, Automated Comments: Test performed at:[facility] [address] [place] [address] Absolute Lymph 1.16 {X10_3/ul} (Normal) [...] :43 Comprehensive Metabolic Profil Comments: Test performed at:[facility] Jctfockmco5727 [facility] [place] [address] GAP 11 (Normal) Range: 5-15 [...] 126 mg/dLsuggests DIABETES MELLITUS per A.D.A. criteria. 62-Fng-27461:43 Lipid Profile Comments: Test performed at:[facility] Adovtevhqr3203 [facility]. [place], [place] [id number] VLDL 61 mg/dL (Abnormal) Range: 5-40 LDL [...] :43 Microalb:Creat Ratio,Random UR Comments: Test performed at:[facility] [address] [place] [id number] MALB:CREAT 15.9 {mg/g_CRE} (Normal) MICROALBUMIN,UR 19.2 mg/L (Normal) UR CREAT 120.3 mg/dL (Normal) :43 Thyroid Stim Hormone (TSH) Comments: Test performed at:[facility] Jcwrrubxda7228 [facility] [place] [address] TSH 2.19 {uIU/mL} (Normal) Range: 0.358-3.74 :43 Vitamin B12 261 pg/mL (Normal) Comments: Test performed at:[facility] [address] [place] [address] Range: 211-911 Comments: ADDENDA: nl and pt has apt tomorrow :43 Vitamin D,25 Hydroxy Comments: Test performed at:[facility] Qpvzrdokpx2678 [facility] [address] Vitamin D 25-OH 30.9 ng/mL (Normal) Comments: Vitamin D 25(OH) Status Range Deficiency <20 ng/mL (50nmol/L) Insuffciency 20 - 30 ng/mL (50 - 75 nmol/L) Sufficiency 30 - 100 ng/mL (75 - 250 nmol/L) Toxicity >100 ng/mL (>250 nmol/L) :38 HgA1C , Office (86632) HgA1C , Office 6.7 % (Normal) Range: 4.6 - 7.1 :56 AFP, Tumor Marker Comments: Is Patient ? NTest performed at:[facility] [address] [place] [id number] ; appt 02/15 AFP TUMOR 2253 4.8 ng/mL (Normal) Range: 0.0-8.3 Comments: Patricia ECLIA methodologyPerformed at: CB - [facility] Sfqksn4614 [place], [place] [id number] Director: Arnold Jefferson PhD, Phone: [phone] :[phone] CBC W/Diff, Automated Comments: Test performed at:[facility] [address] [place] [address] Absolute Lymph 2.37 {X10_3/ul} (Normal) [...] 4.4-11.0 :56 Lipid Profile Comments: Test performed at:[facility] [address] [place] [address] VLDL 26 mg/dL (Normal) Range: [...] :56 Partial Thromboplast Time Comments: Test performed at:[facility] [address] [place] [address] PTT 30.1 s (Normal) Range: 24.1-36.2 :56 Prothrombin Time w/INR Comments: Test performed at:[facility] Try[address] [place] [address] INR 1.0 (Normal) PROTIME 12.8 s (Normal) Range: 11.7-14.9 :56 Thyroid Stim Hormone (TSH) Comments: Test performed at:[facility] [address] [place] [address] TSH 5.17 {uIU/mL} (Abnormal) Range: 0.358-3.74 :56 Vitamin B12 293 pg/mL (Normal) Comments: Test performed at:[facility] [address] [place] [address] Range: 211-911 :56 Vitamin D,25 Hydroxy Comments: Test performed at:[facility] Onl[address]wor[address] [place] [id number] Vitamin D 25-OH 32.0 ng/mL (Normal) Comments: Vitamin D 25(OH) Status Range Deficiency <20 ng/mL (50nmol/L) Insuffciency 20 - 30 ng/mL (50 - 75 nmol/L) Sufficiency 30 - 100 ng/mL (75 - 250 nmol/L) Toxicity >100 ng/mL (>250 nmol/L) 40-Xiv-445162:07 HgA1C , Office (30171) HgA1C , Office 6.3 % (Normal) Range: 4.6 - 7.1 :33 CBC W/Diff, Automated Comments: Test performed at:[facility] [address] [place], [place] [id number] ; non- emergent till apt Absolute Lymph [...] :33 Comprehensive Metabolic Profil Comments: Test performed at:[facility] [address]suus[address] [place] [address] GAP 4 (Abnormal) Range: 5-15 CO2 28.0 [...] criteria. :33 Lipid Profile Comments: Test performed at:[facility] [address] [place] [address] VLDL 29 mg/dL (Normal) Range: [...] B12 394 pg/mL (Normal) Comments: Test performed at:[facility] [address] [place] [address] Range: 211-911 :33 Vitamin D,25 Hydroxy Comments: Test performed at:[facility] [address] [place] [address] Vitamin D 25-OH 39.6 ng/mL (Normal) Comments: Vitamin D 25(OH) Status Range Deficiency <20 ng/mL (50nmol/L) Insuffciency 20 - 30 ng/mL (50 - 75 nmol/L) Sufficiency 30 - 100 ng/mL (75 - 250 nmol/L) Toxicity >100 ng/mL (>250 nmol/L) :10 HgA1C , Office (08219) HgA1C , Office 6.4 % (Normal) Range: [...] CHOL 167 mg/dL (Normal) Comments: <200 mg/dL Tvsdxyddp029-997 mg/dL Borderline>240 mg/dL High Risk TRIG 200 mg/dL (Abnormal) Range: 0-199 Comments: Serum Triglycerides Reference IntervalNormal <150 mg/dLBorderline high 150 - 199 mg/dLHigh 200 - 499 mg/ dLVery High > or = 500 mg/dL :42 TIBC 275 ug/dL (Normal) Range: 250-450 :42 TSH 2.12 {uIU/mL} (Normal) Range: 0.358-3.74 88-Gbj-987910:10 FERRITIN (76683) Comments: PATIENT NOT FASTINGPERFORMED BY: [facility] [id number] Ferritin, Serum 133 ng/mL (Normal) Range: 15-150 81-Sdj-340954:10 IRON BINDING CAPACITY Comments: PATIENT NOT FASTINGPERFORMED BY: [employer] [facility] [id number] Information: [id number] (TIBC) (61629) Iron Saturation 20 % (Normal) Range: 15-55 Iron, Serum 62 ug/dL (Normal) Range: 35-155 UIBC 241 ug/dL (Normal) Range: 150-375 Iron Bind.Cap.(TIBC) 303 ug/dL (Normal) Range: 250-450 05-Fbr-246104:10 VITAMIN B-12 (CYANOCOBALAMIN) Comments: PATIENT NOT FASTINGPERFORMED BY: [employer] [facility] [id number] (65937) Vitamin B12 421 pg/mL (Normal) Range: 211-946 17-Wxz-627628:10 TSH (52931) Comments: PATIENT NOT FASTINGPERFORMED BY: [employer] [facility] [place] [id number] TSH 1.150 {uIU/mL} (Normal) Range: 0.450-4.500 04-Fyf-200817:37 HgA1C , Office (48988) HgA1C , Office 6.1 % (Normal) Range: 4.6 - 7.1 6-Jpb-737032:10 CBC with manual diff Comments: PATIENT WAS FASTINGPERFORMED BY: CORTEZ [facility] Egoibi2173 [facility] [id number] Information: [id number] (27557) Immature Grans (Abs) 0.0 {x10E3/uL} (Normal) Range: [...] 3.77-5.28 WBC 8.2 {x10E3/uL} (Normal) Range: 3.4-10.8 2-Kca-794137:10 Metabolic Panel, Comprehensive Comments: PATIENT WAS FASTINGPERFORMED BY: [facility]Co[facility], Old BridgeEmdxac5344 [facility] [id number] (82067) ALT (SGPT) 11 [iU]/L (Normal) Range: 0-32 [...] to: 0 - 30 days 15 - 31 d - 5 months 15 - 6 m - 11 months 15 - 1 - 12 years 17 - 27 [...] Glucose, Serum 129 mg/dL (Abnormal) Range: 65-99 3-Bwm-088710:10 Lipid Panel (80444) Comments: PATIENT WAS FASTINGPERFORMED BY: [facility]imaR[facility], Old BridgeYyfful2946 [facility] [id number] LDL/HDL Ratio 1.4 {ratio_units} (Normal) Range: 0.0-3.2 [...] METABOLIC PANEL, Comments: PATIENT NOT FASTINGPERFORMED BY: [employer] Uduyaj5654 [facility] [id number] Information: [id number] COMPREHENSIVE (86077) ALT (SGPT) 15 [iU]/L (Normal) Range: 0-32 [...] 133 mg/dL (Abnormal) Range: 65-99 :14 TSH (17796) Comments: PATIENT NOT FASTINGPERFORMED BY: [facility]CoR[facility], Old BridgeHvmaax8724 [facility] [id number] TSH 0.182 {uIU/mL} (Abnormal) Range: 0.450-4.500 :40 [...] CHOL 99 mg/dL (Normal) Comments: <200 mg/dL Jyqvrrvnz141-493 mg/dL Borderline>240 mg/dL High Risk :40 MIACRE [...] CHOL 148 mg/dL (Normal) Comments: <200 mg/dL Awhtzxfos397-278 mg/dL Borderline>240 mg/dL High Risk HDL 46 [...] - 250 nmol/L)Toxicity >100 ng/mL (>250 nmol/L) 79-Smy-495396:27 HgA1C , Office (36591) HgA1C , Office 6.7 % (Normal) Range: 4.6 - 7.1 :17 METABOLIC PANEL, COMPREHENSIVE Comments: PATIENT WAS FASTINGPERFORMED BY: [employer] [facility] [id number] (48710) ALT (SGPT) 16 [iU]/L (Normal) Range: 0-32 [...] mg/dL (Abnormal) Range: 65-99 :17 LIPID PANEL (11237) Comments: PATIENT WAS FASTINGPERFORMED BY: [employer] [facility] InternationalCritical [facility] hospital [id number] LDL/HDL Ratio 2.0 {ratio_units} (Normal) Range: 0.0-3.2 LDL Cholesterol Calc 103 mg/dL (Abnormal) Range: 0-99 HDL Cholesterol 52 mg/dL (Normal) Comments: According to ATP-III Guidelines, HDL-C >59 mg/dL is considered anegative risk factor for CHD. VLDL Cholesterol Priscilla 56 mg/dL (Abnormal) Range: 5-40 Triglycerides 278 mg/dL (Abnormal) Range: 0-149 Cholesterol, Total 211 mg/dL (Abnormal) Range: 100-199 03-Apr-20139:17 CBC WITH MANUAL DIFF Comments: PATIENT WAS FASTINGPERFORMED BY: [facility]CoR[facility], Old BridgeTtewdk8843 [facility] [id number] Information: [id number] (39015) Immature Grans (Abs) 0.0 {x10E3/uL} (Normal) Range: [...] B-12 (CYANOCOBALAMIN) Comments: PATIENT WAS FASTINGPERFORMED BY: [employer] LabPleyRaritan Bay Medical Center, Old BridgeAviswd2626 [facility] [place] [id number] (40906) Vitamin B12 696 pg/mL (Normal) Range: 211-946 :17 Vitamin D Hydroxy (55640) Comments: PATIENT WAS FASTINGPERFORMED BY: [facility] Bxgmmi2291 [facility] [place] [id number] Vitamin D, 25-Hydroxy 29.3 ng/mL (Abnormal) Range: 30.0-100.0 Comments: Vitamin D deficiency has been defined by the [place] of[place]icine and an Endocrine Society practice guideline as alevel of serum 25-OH vitamin D less than 20 ng/mL (1,2).The Endocrine Society went on to further define vitamin Dinsufficiency as a level between 21 and 29 ng/mL (2).1. IOM ([place] of [place]). 2010. Dietary reference intakes for calcium and D. [place]: The National Academies Press.2. Rachel MF, Yael NC, Dunia HERRERA, et al. Evaluation, treatment, and prevention of vitamin D deficiency: an Endocrine Society clinical practice guideline. JCEM. 2010; 96(7):1911-30. 24-Iss-227844:29 HgA1C , Office (41859) HgA1C , Office 7.0 % (Normal) Range: 4.6 - 7.1 9-Oqk-919023:14 B12 794 pg/mL (Normal) Range: 211-911 Comments: Effective 201227-Dec-20128-Aqd-475172:14 VITD 37.5 ng/mL (Normal) Comments: Vitamin D 25(OH) Status RangeDeficiency <20 ng/mL (50nmol/L)Insufficiency 20 - 30 ng/mL (50 - 75 nmol/L)Sufficiency 30 - 100 ng/mL (75 - 250 nm ol/L)Toxicity >100 ng/mL (250 nmol/L)Effective 201201-Dec-20121-Jsj-156050:13 CHEST PA AND LATERAL Radiology Report See [...] Tate D.O.December 01, 2012 at 12:40:54 PM [id number] Signed DS/DS If you are the referring physician and would like to consult with theradiologist who provided this i nterpretation, please contact Eulalio Tate D.O. at [phone]. If this radiologist is unavailable, you will bedirected to another radiologist to assist. If you are a patient with a question regarding t his report, pleasecontactyour referring physician directly. Professional Interpretation Provided By: [employer], Phone , These documents contain legally protected [...] documents. Dicta gómez on 12/01/12 1040 by Dell Peterson DOranscribed on 12/01/12 1243 by ITS IMPORTSign by Mack Peterson DO on 12/01/12 1244 Sign by: Mack Peterson DO 88-Fkj-426607:20 Upper Respiratory Culture Comments: PATIENT NOT FASTINGPERFORMED BY: [facility]onia6370 [facility] [id number] Information: SRC: THROAT Result 1 RRF (Normal) Comments: Routine respiratory alton Upper Respiratory Culture Final report (Normal) 49-Csc-556678:06 Rapid Strep Test, Office (39937) Rapid Strep Test, Office Negative (Normal) 65-Yuj-734047:32 BILAT SCRN DIGITAL & CAD Radiology Report [...] Wayne M.D.November 18, 2012 at 12:51:57 PM [id number] Signed GP/GP If you are the referring physician and would like to consult with theradiologist who provid ed this interpretation, please contact Todd Claudio. at [phone]. If this radiologist is unavailable, youwill be directed to another radiologist to assist. If you are a patient with a ques tion regarding this report, pleasecontactyour referring physician directly. Professional Interpretation Provided By: [employer], Phone , These documents contain legally pr [...] 11/18/12 1254 Sign by: Teo Wayne MD 9-Vdd-308664:24 URINE RANI CULTURE-IDENTIFICATN Comments: PATIENT NOT FASTINGPERFORMED BY: [employer] Dpybxl1109 [facility] [id number] Information: [id number] (40533) Result 1 MUG (Normal) Comments: Mixed urogenital flora10,000-25,000 colony forming units per mL Urine Final report (Normal) Culture,Comprehensive 30-Grk-685264:50 METABOLIC PANEL, Comments: PATIENT NOT FASTINGPERFORMED BY: [employer] Thjskv4480 [facility] [id number] Information: ADD [id number] AND DRAW FEE 99 4345 COMPREHENSIVE (18627) ALT (SGPT) 14 [iU]/L (Normal) Range: 0-32 [...] Glucose, Serum 109 mg/dL (Abnormal) Range: 65-99 5-Wof-237529:42 HgA1C , Office (16462) HgA1C , Office 6.3 % (Normal) Range: 4.6 - 7.1 :04 Microscopic Examination Comments: PATIENT NOT FASTINGPERFORMED BY: [facility]CoR[facility], Old BridgeQuxsrw4549 [facility] [id number] Bacteria Few (Normal) Mucus Threads Present (Normal) Cast Type Hyaline casts (Normal) Casts Present {/lpf} (Abnormal) Epithelial Cells (non renal) 0-10 {/hpf} (Normal) Range: 0 - 10 RBC 0-3 {/hpf} (Normal) Range: 0 - 3 WBC 6-10 {/hpf} (Abnormal) Range: 0 - 5 :04 VITAMIN B-12 (CYANOCOBALAMIN) Comments: PATIENT NOT FASTINGPERFORMED BY: [facility] Hertwr8963 [facility] [id number] (02875) Vitamin B12 1228 pg/mL (Abnormal) Range: 211-946 :04 Vitamin D Hydroxy (17189) Comments: PATIENT NOT FASTINGPERFORMED BY: [facility]6370 [facility] [id number] Vitamin D, 25-Hydroxy 21.9 ng/mL (Abnormal) Range: 30.0-100.0 Comments: Vitamin D deficiency has been defined by the [place] of[place]icine and an Endocrine Society practice guideline as alevel of serum 25-OH vitamin D less than 20 ng/mL (1,2).The Endocrine Society went on to further define vitamin Dinsufficiency as a level between 21 and 29 ng/mL (2).1. IOM ([place] of [place]). 2010. Dietary reference intakes for calcium and D. [place]: The National Academies Press.2. Rachel MF, Yael NC, Dunia HERRERA, et al. Evaluation, treatment, and prevention of vitamin D deficiency: an Endocrine Society clinical practice guideline. JCEM. 2010; 96(7):1911-30. :04 URINALYSIS, W/ MICRO (63182) Comments: PATIENT NOT FASTINGPERFORMED BY: [facility]6370 [facility] [id number] Microscopic Examination See below: (Normal) Nitrite, Urine Negative (Normal) Bilirubin Negative (Normal) Urobilinogen,Semi-Qn 0.2 mg/dL (Normal) Range: 0.0-1.9 Occult Blood Negative (Normal) Ketones Negative (Normal) Glucose Negative (Normal) Protein Negative (Normal) WBC Esterase 1+ (Abnormal) Appearance Clear (Normal) Urine-Color Yellow (Normal) pH 5.5 (Normal) Range: 5.0-7.5 Specific [place] 1.024 (Normal) Range: 1.005-1.030 :04 CBC WITH MANUAL DIFF Comments: PATIENT NOT FASTINGPERFORMED BY: [facility]6370 [facility] [id number] Information: [id number] (26980) Immature Grans (Abs) 0.0 {x10E3/uL} (Normal) Range: [...] PANEL, COMPREHENSIVE Comments: PATIENT NOT FASTINGPERFORMED BY: [facility]6370 [facility] [id number] (35387) ALT (SGPT) 13 [iU]/L (Normal) Range: 0-32 [...] Glucose, Serum 125 mg/dL (Abnormal) Range: 65-99 84-Bsv-30471:04 LIPID PANEL (94978) Comments: PATIENT NOT FASTINGPERFORMED BY: [facility] Gvzwcw8852 [facility] [id number] LDL Cholesterol Calc 103 mg/dL (Abnormal) Range: [...] pg/mL (Normal) Range: 211-946 Comments: Performed at: [facility] [address] [id number] Director: Arnold Jefferson PhD, Phone: [phone] :[phone] CMP GAP 9 (Normal) Range: 5-15 [...] 250 nmol/L) Toxicity >100 ng/mL (250 nmol/L)Effective 201215-Aug-201213-Fzk-908023:20 Metabolic Panel, Basic Comments: PATIENT NOT FASTINGPERFORMED BY: [employer] InternationalCritical access hospital [id number] Information: [id number] (78749) Calcium, Serum 10.2 mg/dL (Normal) Range: 8.6-10.2 [...] Glucose, Serum 99 mg/dL (Normal) Range: 65-99 2-Fsn-002935:24 Microscopic Examination Comments: PATIENT NOT FASTINGPERFORMED BY: [employer] [facility] [id number] Bacteria Few (Normal) Mucus Threads Present (Normal) Epithelial Cells (non renal) 0-10 {/hpf} (Normal) Range: 0 - 10 RBC 0-3 {/hpf} (Normal) Range: 0 - 3 WBC 6-10 {/hpf} (Abnormal) Range: 0 - 5 :24 Vitamin D Hydroxy (99683) Comments: PATIENT NOT FASTINGPERFORMED BY: [employer] Riqqoe3337 [facility] [id number] Vitamin D, 25-Hydroxy 21.7 ng/mL (Abnormal) Range: 30.0-100.0 Comments: Vitamin D deficiency has been defined by the [place] ofMer[facility] and an Endocrine Society practice guideline as alevel of serum 25-OH vitamin D less than 20 ng/mL (1,2).The Endocrine Society went on to further define vitamin Dinsufficiency as a level between 21 and 29 ng/mL (2).1. IOM ([place] of [place]). 2010. Dietary reference intakes for calcium and D. [place]: The National Academies Press.2. Rachel MF, Yael MARLEY, Dunia HERRERA, et al. Evaluation, treatment, and prevention of vitamin D deficiency: an Endocrine Society clinical practice guideline. JCEM. 2010; 96(7):1911-30. 2-Efu-014597:24 VITAMIN B-12 (CYANOCOBALAMIN) Comments: PATIENT NOT FASTINGPERFORMED BY: [employer] Nrufsm4395 [facility] [id number] (07989) Vitamin B12 431 pg/mL (Normal) Range: 211-946 :24 URINALYSIS, W/ MICRO (49927) Comments: PATIENT NOT FASTINGPERFORMED BY: [employer] WirelessFreeman Health System Pqhrko5247 [facility] [id number] Microscopic Examination MICRON (Normal) Comments: Microscopic follows if indicated. Microscopic Examination See below: (Normal) Nitrite, Urine Negative (Normal) Urobilinogen,Semi-Qn 0.2 mg/dL (Normal) Range: 0.0-1.9 Bilirubin Negative (Normal) Ketones Negative (Normal) Occult Blood Negative (Normal) Glucose Negative (Normal) Protein Negative (Normal) WBC Esterase Negative (Normal) Appearance Clear (Normal) pH 6.5 (Normal) Range: 5.0-7.5 Urine-Color Yellow (Normal) Specific [place] 1.022 (Normal) Range: 1.005-1.030 :24 CBC WITH MANUAL DIFF Comments: PATIENT NOT FASTINGPERFORMED BY: [facility]Co[facility], Old BridgeMmnaqw6353 [facility] [id number] Information: [id number] (19544) Immature Grans (Abs) 0.0 {x10E3/uL} (Normal) Range: [...] 3.77-5.28 WBC 7.9 {x10E3/uL} (Normal) Range: 4.0-10.5 :24 METABOLIC PANEL, COMPREHENSIVE Comments: PATIENT NOT FASTINGPERFORMED BY: [facility]6370 [facility] [id number] ([id number]) ALT (SGPT) 16 [iU]/L (Normal) Range: 0-32 [...] Glucose, Serum 107 mg/dL (Abnormal) Range: 65-99 8-Fal-946943:24 TSH (83453) Comments: PATIENT NOT FASTINGPERFORMED BY: [place] 4476470 [facility] [id number] TSH 2.000 {uIU/mL} Range: 0.450-4.500 (Normal) CCP Antibodies IgG/IgA 1 {units} (Normal) Comments: PATIENT NOT FASTINGPERFORMED BY: LabPleyRaritan [facility], Old BridgeJfpvvc7352 [facility] [id number] BY: [address] [id number] :39 Range: 0-19 Comments: Negative <20 Weak positive 20 - 39 Moderate positive 40 - 59 Strong positive >59 7-Gum-532529:39 Systemic Lupus Profile Comments: PATIENT NOT FASTINGPERFORMED BY: CB [facility] Tgoick9208 Sridhar DavilaAtrium Health [facility] [id number] BY: BN [facility] Qvhkfjrrrm2141 [facility] [id number] Information: [id number] (02391) Anti-DNA (DS) Ab Qn <1 {IU/mL} (Normal) Range: 0-9 Comments: Negative <5 Equivocal 5 - 9 Positive >9 Sjogren's Anti-SS-B 0.5 {AI} (Normal) Range: 0.0-0.9 Sjogren's Anti-SS-A 0.3 {AI} (Normal) Range: 0.0-0.9 Antichromatin Antibodies <0.2 {AI} (Normal) Range: 0.0-0.9 RA Latex Turbid. 8.5 {IU/mL} (Normal) Range: 0.0-13.9 [place] Antibodies <0.2 {AI} (Normal) Range: 0.0-0.9 DONOR SUPPORT TECHNICIAN Antibodies <0.2 {AI} (Normal) Range: 0.0-0.9 49-Aqs-534623:27 HgA1C , Office (38185) HgA1C , Office 6.2 % (Normal) Range: 4.6 - 7.1 83-Lbx-789677:27 Blood Glucose , Office (58235) Blood Glucose , Office 108 (Normal) :45 [...] D deficiency has been defined by the [place] ofMedicine and an Endocrine Society practice guideline as alevel of serum 25-OH vitamin D less than 20 ng/mL (1,2).The Endocrine Society went on to further define vitamin Dinsufficiency as a level between 21 and 29 ng/mL (2).1. IOM ([place] of Medicine). 2010. Dietary reference intakes for calcium and D. [place]: The National Academies Press.2. Rachel MF, Yael NC, Dunia HERRERA, et al. Evaluation, treatment, and prevention of vitamin D deficiency: an Endocrine Society clinical practice guideline. JCEM. 2010; 96(1): 1911-30.Performed at: - [facility]Co[address] [id number] Director: Arnold Jefferson PhD, Phone: [phone] 49-Nrg-530492:59 Blood Glucose , Office (42832) Blood Glucose , Office 131 (Normal) :58 HgA1C , Office (46820) HgA1C , Office 6.8 % (Normal) Range: [...] mg/dL suggests DIABETES MELLITUS per A.D.A. criteria. 53-Jzr-551481:12 LIPID LDL 104 mg/dL (Normal) Range: 0-130 [...] 200-240 mg/dL Borderline >240 mg/dL High Risk 76-Bdd-595834:12 TSH 2.08 {uIU/mL} (Normal) Range: 0.358-3.74 33-Axp-979197:12 VITD 34.7 ng/mL (Normal) Range: 30.0-100.0 Comments: Vitamin D deficiency has been defined by the [place] ofMedicine and an Endocrine Society practice guideline as alevel of serum 25-OH vitamin D less than 20 ng/mL (1,2).The Endocrine Society went on to further define vitamin Dinsufficiency as a level between 21 and 29 ng/mL (2).1. IOM ([place] of Medicine). 2010. Dietary reference intakes for calcium and D. [place]: The National Academies Press.2. Rachel MF, Yael MARLEY, Dunia HERRERA, et al. Evaluation, treatment, and prevention of vitamin D deficiency: an Endocrine Society clinical practice guideline. JCEM. 2010; 96(7): 1911-30.Performed at: - [facility]Co[address] [id number] Director: Tona Emmanuel MD, Phone: [phone] :[phone] HgA1C , Office (85588) HgA1C , Office 5.8 % (Normal) Range: 4.6 - 7.1 :15 Blood Glucose , Office (23781) Blood Glucose , Office 113 (Normal) :30 [...] 70.7 mg/L (Normal) CREU 180.8 mg/dL (Normal) : TSH 1.08 {uIU/mL} (Normal) Range: 0.358-3.74 :30 VITD 35.3 ng/mL (Normal) Range: 30.0-100.0 Comments: Vitamin D deficiency has been defined by the [place] of[facility] and an Endocrine Society practice guideline as alevel of serum 25-OH vitamin D less than 20 ng/mL (1,2).The Endocrine Society went on to further define vitamin Dinsufficiency as a level between 21 and 29 ng/mL (2).1. IOM ([place] of [place]). 2010. Dietary reference intakes for calcium and D. [place]: The National Academies Press.2. Rachel MF, Yael NC, Dunia HERRERA, et al. Evaluation, treatment, and prevention of vitamin D deficiency: an Endocrine Society clinical practice guideline. JCEM. 2010; 96(7): 1911-30.Performed at: [address] [id number] Director: Tona Emmanuel MD, Phone: [phone] 88-Sgm-106902:02 CTA NECK W/WO CONTRAST Radiology Report See [...] ologist regarding this report, please call our 59Z9xmwlqyv line @ Dictated on 10/08/11 [address],Davidranscribed on 10/09/11 0856 by ITS IMPORTSign by Juana Wayne MD on 10/09/11 0857 Sign by: Teo Wayne MD 58-Fgg-572246:00 BILAT SCRN DIGITAL & CAD Radiology Report [...] radiologist regarding this report, please call our 29Z9gcjapbk line @ Dictated on 09/18/11 1040 by Ori clifton MD,GeerieleTranscribed on 09/20/11900 by ITS IMPORTSign by Teo Wayne MD on 09/20/11901 Sign by: Teo Wayne MD 36-Phg-45763:59 DEXA BONE DENSITY STUDY (HP) Radiology Report [...] regarding this re port, please call our 99X8moicleg line @ Dictated on 09/18/11 [address]ER,Daivdranscribed on 09/19/11 1416 by ITS IMPORTSign by Teo Wayne MD on 09/19/11 1417 Sign by: Teo Wayne MD 25-Txk-344602:17 HgA1C , Office (96887) HgA1C , Office 5.9 % (Normal) Range: 4.6 - 7.1 49-Jpl-133922:17 Blood Glucose , Office (38908) Blood Glucose , Office 77 (Normal) 04-Sep-20119:44 [...] >240 mg/dL High Risk :44 VIT D,25 68790 22.3 ng/mL (Abnormal) Range: 30.0-100.0 Comments: Vitamin D deficiency has been defined by the [place] ofMedicine and an Endocrine Society practice guideline as alevel of serum 25-OH vitamin D less than 20 ng/mL (1,2).The Endocrine Society went on to further define vitamin Dinsufficiency as a level between 21 and 29 ng/mL (2).1. IOM ([place] of [place]). 2011. Dietary reference intakes for calcium and D. [place]: The National Academies Press.2. Rachel MF, Yael NC, Dunia HERRERA, et al. Evaluation, treatment, and prevention of vitamin D deficiency: an Endocrine Society clinical practice guideline. JCEM. 2010; 96(7): 1911-30.Performed at: - Lab[address] [id number] Director: Tona Emmanuel MD, Phone: [phone] 0-Gpl-232664:34 HgA1C , Office (64063) HgA1C , Office 6.6 % (Normal) Range: 4.6 - 7.1 :34 Blood Glucose , Office (50074) Blood Glucose , Office 116 (Normal) :50 [...] Range: 4.4-11.0 :50 COMP METABOLIC Comments: appt 53365 GAP 10 (Normal) Range: 5-15 CO2 26.0 [...] {uIU/mL} (Normal) Range: 0.358-3.74 :50 VIT D,25 37168 41.3 ng/mL (Normal) Range: 32.0-100.0 Comments: Effective June 18, 2011 Vitamin D, 25-Hydroxy reference intervals will be changing to 30-100. .Recent studies consider the lower li lalo of 32.0 ng/mL to be athreshold for optimal health.Pepito ANNE. J Nutr. 2004;135(2):317-22.Performed at: [employer] [address] [id number] Director: Tona Emmanuel MD, Phone: [phone] :[phone] VITAMIN B12 806 pg/mL (Normal) Range: [...] Panel (14) Comments: PATIENT WAS FASTINGPERFORMED BY: [employer] [id number] ALT (SGPT) 40 [iU]/L (Normal) Range: 0-40 [...] Glucose, Serum 136 mg/dL (Abnormal) Range: 65-99 6-Zvo-239289:09 Lipid Panel With LDL/HDL Comments: PATIENT WAS FASTINGPERFORMED BY: [facility]Co[facility], Old BridgePghfeq4408 [facility] [id number] Ratio LDL Cholesterol Calc 74 mg/dL (Normal) [...] 0.192 {uIU/mL} Comments: PATIENT WAS FASTINGPERFORMED BY: [facility]6370 [facility] [id number] 09 (Abnormal) Range: 0.450-4.500 : Vitamin B12 417 pg/mL (Normal) Comments: PATIENT WAS FASTINGPERFORMED BY: [facility]CoR[facility], Old BridgeBitieb0254 [facility] [id number] Range: 211-946 34-Gaq-836657:22 UNILAT LT DIAG DIGITAL & CAD Radiology [...] 0945 by David Wayne MDranscribed on 02/23/11 151 by ITS IMPORTSign by Teo Wayne MD [...] 4.2-5.4 WBC 7.2 K/mm3 (Normal) Range: 4.4-11.0 18-Bgl-58278:58 COMP METABOLIC Comments: appt 10/24/10 GAP 12 [...] {uIU/mL} (Abnormal) Range: 0.358-3.74 :58 VIT D,25 49357 22.0 ng/mL (Abnormal) Comments: appt 10/24/10 Range: 32.0-100.0 Comments: Recent studies consider the lower limit of 32.0 ng/mL to tammy threshold for optimal health.Pepito ANNE. J Nutr. 2004;135(2):317-22.Performed at: [facility] Lab[address] Director: Tona Emmanuel MD, Phone: [phone] :58 VITAMIN B12 285 pg/mL (Normal) Range: [...] Thin Prep VialPATIENT NOT FASTINGPERFORMED BY: [facility] [address] [facility] TONJA [id number] Information: [id number] (56060) Note: PAPSMR (Normal) Comments: The Pap smear [...] for malignant neoplasm of the cervixMattsteve Montes Stock Car Driver (ASCP) 35-Okz-665550:26 BREAST UNILATERAL Radiology Report See Note (Normal) [...] on 08/28/10 1453 Sign by: ANTHONY PALOMARES 52-Evv-134999:58 UNILAT LT DIAG DIGITAL & CAD Radiology [...] Category 3: Probably Benign Finding - Initial Nfzum-BhlrkrhcTohvfd-wb Suggested. A letter regarding these results will be sent tothepatient by the facility within 30 days. Approximately 10% of breast cancers are not detected by mammography. Anormal mammogram should not delay biopsy of a clinically suspiciousabnormality. Dictated on 08/24/10 1206 by ANTHONY PALOMARESTranscribed on 0 08/24/10 1351 by ITS IMPORTSign by ANTHONY PALOMARES on 08/24/10 1352 Sign by: ANTHONY PALOMARES 61-Ond-21411:43 BILAT SCRN DIGITAL & CAD Radiology Report [...] 08/18/10 1452 Sign by: ANTHONY PALOMARES MD 5-Yqt-456722:14 HgA1C , Office (40842) HgA1C , Office 6.5 % (Normal) Range: 4.6 - 7.1 :14 Blood Glucose , Office (31787) Blood Glucose , Office 176 (Normal) :30 [...] CREAT 161.2 mg/dL (Normal) : VIT D,25 44631 27.7 ng/mL Range: 32.0-100.0 30 (Abnormal) Comments: Recent studies consider the lower limit of 32.0 ng/mL to tammy threshold for optimal health.Pepito ANNE. J Nutr. 2004;135(2):317- 22.Performed at: [address] [id number] Director: Tona Emmanuel MD, Phone: [phone] : VITAMIN B12 449 pg/mL (Normal) Range: [...] {units} (Normal) Comments: PATIENT NOT FASTINGPERFORMED BY: [address] [id number] BY: [address] [id number] 0:44 Range: 0-19 Comments: Negative <20 Weak positive 20 - 39 Moderate positive 40 - 59 Strong positive >59 Comment: SPRCS (Normal) Comments: PATIENT NOT FASTINGPERFORMED BY: [address] [id number] BY: [address] [id number] 0:44 Comments: Effective April 25, 2009 order code 791071 CCP IgGAntibodies has been replaced due to an updated reagentversion 3.1. For this reason [facility] has provided youwith a new order code 038907 CCP Antibodies IgG/IgA. :44 Vitamin D Hydroxy Comments: PATIENT NOT FASTINGPERFORMED BY: [address] [id number] BY: [address] [id number] (06271) Vitamin D, 25-Hydroxy 30.9 ng/mL (Abnormal) Range: 32.0-100.0 Comments: Recent studies consider the lower limit of 32.0 ng/mL to be athreshold for optimal health.Pepito ANNE. J Nutr. 2004;135(2):317-22. 20-Xjl-399402:44 SED RATE ERYTHROCYTE Comments: PATIENT NOT FASTINGPERFORMED BY: [facility] Pyxyue2470 Waller Roadblin [place] [id number] BY: [address] [id number] (31205) Sedimentation Rate-Westergren 4 mm/h (Normal) Range: 0-30 89-Mhe-432054:44 C-REACTIVE PROTEIN Comments: PATIENT NOT FASTINGPERFORMED BY: [facility] Aesrzk3426 Waller RoadDublin [place] [id number] BY: [employer] [id number] (66899) C-Reactive Protein, Quant 2.5 mg/L (Normal) Range: 0.0-4.9 39-Epc-068116:44 TSH (69163) Comments: PATIENT NOT FASTINGPERFORMED BY: [facility] Wxsyaa9726 Waller RoadDublin [place] [id number] BY: [employer] [id number] TSH 2.050 {uIU/mL} (Normal) Range: 0.450-4.500 42-Tef-270355:44 RHEUMATOID FACTOR-QUANT Comments: PATIENT NOT FASTINGPERFORMED BY: [facility] Zhlupu7442 Waller RoadDublin [place] [id number] BY: [employer] [id number] (63624) RA Latex Turbid. 8.4 {IU/mL} (Normal) Range: 0.0-13.9 86-Fcu-853129:44 MELI (ANTINUCLEAR ANTIBODY) Comments: PATIENT NOT FASTINGPERFORMED BY: [facility] Sxeddn4855 Waller RoadDublin [place] [id number] BY: LabCoMichael [place] 589777 [facility] [id number] (21423) MELI Direct Negative (Normal) 36-Gcd-013243:44 CBC WITH MANUAL DIFF Comments: PATIENT NOT FASTINGPERFORMED BY: CB [facility] Pmutdt7563 [facility] [id number] BY: [facility]Co[address] [id number] Inf ormation: ADD [id number] AND DRAW FEE 99 0331 (46322) Immature Grans (Abs) 0.0 {x10E3/uL} (Normal) Range: [...] 3.80-5.10 WBC 6.8 {x10E3/uL} (Normal) Range: 4.0-10.5 23-Xnr-572078:44 METABOLIC PANEL, Comments: PATIENT NOT FASTINGPERFORMED BY: CB [facility] Zluroe6032 Sridhar [place] [id number] BY: BN [facility] Zxdohfzonl8685 [facility] [id number] COMPREHENSIVE (48679) ALT (SGPT) 21 [iU]/L (Normal) Range: 0-40 [...] (Abnormal) Range: 65-99 :33 HgA1C , Office (89003) HgA1C , Office 6.8 % (Normal) Range: 4.6 - 7.1 :33 Blood Glucose , Office (85867) Blood Glucose , Office 135 (Normal) :22 [...] CHOL 157 mg/dL (Normal) Comments: <200 mg/dL Kqfqswxwi000-497 mg/dL Borderline>240 mg/dL High Risk :22 LIVER ALB 3.5 g/dL (Normal) Range: 3.4-5.0 ALK P 97 U/L (Normal) Range: 50-136 ALT 21 U/L (Normal) Range: 12-78 AST 16 U/L (Normal) Range: 15-37 D BILI 0.12 mg/dL (Normal) Range: 0.00-0.30 T BILI 0.40 mg/dL (Normal) Range: 0.00-1.00 T PROT 6.5 g/dL (Normal) Range: 6.4-8.2 :22 TSH 1.54 {uIU/mL} Range: 0.358-3.74 (Normal) :22 VIT D,25 32520 36.8 ng/mL (Normal) Range: 32.0-100.0 Comments: Recent studies consider the lower limit of 32.0 ng/mL to tammy threshold for optimal health.Pepito ANNE. J Nutr. 2004;135(2):317-22.Performed at: - LabCoKathleen Ville [address] 296[facility] Director: Tona Emmanuel MD, Phone: [phone] :22 VITAMIN B12 264 pg/mL (Normal) Range: 254-1320 Comments: There is a low frequency possibility that high titers ofintrinsic blocking antibodies may not be completelyinactivated during the reaction pretreatment stepof this testing method. If test results are in conflictwith the clinical diagnosis, patient should be testedfor the presence of intrinsic factor blocking antibodies. : Amylase, Serum 92 U/L (Normal) Comments: PERFORMED BY: [employer]6370 [facility] [id number] Range: 31-124 :34 CBC With Differential/Platelet Comments: PERFORMED BY: [employer]6370 [facility] [id number] Baso (Absolute) 0.0 {x10E3/uL} (Normal) Range: 0.0-0.2 [...] 3.80-5.10 WBC 7.5 {x10E3/uL} (Normal) Range: 4.0-10.5 57-Ajm-357777:34 Comp. Metabolic Panel (14) Comments: PERFORMED BY: [facility] Hfkcmd3642 [facility] [id number] ALT (SGPT) 18 [iU]/L (Normal) Range: 0-40 [...] Serum 57 U/L (Normal) Comments: PERFORMED BY: [facility]inimaRar[facility], Old BridgeUazymj7910 [facility] [id number] 13:34 Range: 0-59 03-Feb-20109:00 GALLBLADDER Radiology Report See Note (Normal) Comments: Exam Number: [id number] CLINICAL:Epigastric pain and bloating. ABDOMINAL ULTRASOUND TECHNIQUE:Transabdominal [...] hydronephrosis,etiology indeterminate. Reported By: KATHRYN MUNOZ M.D. 4-Qjk-452160:19 CBC WITH MANUAL DIFF Comments: PATIENT NOT FASTINGPERFORMED BY: [facility]6370 [facility] [id number] Information: [id number] (24958) Baso (Absolute) 0.1 {x10E3/uL} (Normal) Range: 0.0-0.2 [...] 3.80-5.10 WBC 9.9 {x10E3/uL} (Normal) Range: 4.0-10.5 7-Gzm-443340:19 METABOLIC PANEL, COMPREHENSIVE Comments: PATIENT NOT FASTINGPERFORMED BY: [facility]CoR[facility], Old BridgePzkrgd1887 [facility] [id number] (93734) ALT (SGPT) 19 [iU]/L (Normal) Range: 0-40 [...] Report See Note (Normal) Comments: Exam Number: [id number] CLINICAL:This is a 69-year-old female patient with [...] as discussed above. Reported By: TEO WAYNE 2-Whq-402756:12 HgA1C , Office (27096) HgA1C , Office 7.1 % (Normal) Range: 4.6 - 7.1 :12 Blood Glucose , Office (02090) Blood Glucose , Office 129 (Normal) :45 [...] CHOL 155 mg/dL (Normal) Comments: <200 mg/dL Vlgdewlfh857-693 mg/dL Borderline>240 mg/dL High Risk :45 VIT D,25 41148 42.5 ng/mL (Normal) Range: 32.0-100.0 Comments: Recent studies consider the lower limit of 32.0 ng/mL to tammy threshold for optimal health.Beyer BW. J Nutr. 2004;135(2):317-22.Performed at: CB - [facility] [address] [id number] Director: Tona Emmanuel MD :53 LIPID HDL [...] CHOL 128 mg/dL (Normal) Comments: <200 mg/dL Hfckhoopk242-597 mg/dL Borderline>240 mg/dL High Risk :53 MICROALB:CRE UR MALB:CREAT 19.1 {mg/g_CRE} (Normal) MICROALBUMIN,UR 29.1 mg/L (Normal) UR CREAT 152.0 mg/dL (Normal) :53 TSH 0.93 {uIU/mL} (Normal) Range: 0.358-3.74 :53 VIT D,25 72025 22.7 ng/mL (Abnormal) Range: 32.0-100.0 Comments: Recent studies consider the lower limit of 32.0 ng/mL to tammy threshold for optimal health.Beyer BW. J Nutr. 2004;135(2):317-22.Performed At: [facility]BL[facility] [address] [id number] :53 VITAMIN B12 337 pg/mL (Normal) Range: 254-1320 :09 HgA1C , Office (35448) HgA1C , Office 7.1 % (Normal) Range: 4.6 - 7.1 :09 Blood Glucose , Office (86811) Blood Glucose , Office 108 (Normal) 0-Fox-995325:33 KNEE,4 OR MORE VIEWS (MT) Radiology Report See Note (Normal) Comments: Exam Number: [id number] CLINICAL:Pain X-RAY EXAMINATION RIGHT KNEE TECHNIQUE:Three view(s) [...] Report See Note (Normal) Comments: Exam Number: [id number] CLINICAL:Pain X-RAY EXAMINATION: RIGHT TIBIA AND FIBULA [...] (MT) Radiology See Note Comments: Exam Number: [id number] CLINICAL:Pain X-RAY EXAMINATION: RIGHT FEMUR TECHNIQUE:Two views [...] Visualized femur. Reported By: RAYMOND ARRIAGA M.D. 1-Fhq-944646:43 [facility] DIGITAL & CAD Radiology Report See Note (Normal) Comments: Exam Number: [id number] MAMMOGRAM, UNILATERAL LEFT DIAGNOSTIC DIGITAL AND CAD HISTORYAbnormal mammogram, left breast. TECHNIQUEFull field digital images were obtained in left true lateral, rolledcranio caudal, and spot mediolateral oblique and craniocaudalprojections. CAD images were reviewed. The current study is compared to the examinations of March 12, 2006,and June 21, 2009. FINDINGSThere is a adqtatht-tj-uddhjj extent of fibroglandular parenchymapresent. There is no [...] wereal so examined with computer-aided detection software (Image[employer]the[employer], [employer] Reported By: ANTHONY PALOMARES M.D. 47-Sbc-399162:04 [facility] DIGITAL & CAD Radiology Report See Note (Normal) Comments: Exam Number: [id number] MAMMOGRAM, BILATERAL SCREENING DIGITAL AND CAD HISTORYRoutine [...] werealso examined with computer- aided detection software ([employer], [employer].). Reported By: ANHTONY PALOMARES M.D. 49-Xlk-268078:03 DEXA BONE DENSITY STUDY (HP) Radiology Report See Note (Normal) Comments: Exam Number: [id number] BONE DENSITOMETRY HISTORYOsteopenia. TECHNIQUE Bone densitometry of the lumbar spine and both hips is now beingperformed. The best criteria for evaluation of osteoporosis is theT-value, which represents the comparison of the patient's bone mass flako expected peak bone mass. For most patients, the mean T-value of I2fjddfwv L4 is used to evaluate the lumbar spine. To evalua te the hip,the lower T-value of the femoral neck or total hip is used. FINDINGSIn this patient, the mean T-value of L1 through L4 is 0.3 which isnormal. Bone mineral density is measured at 18.3% greate r than na2101.Digital lateral view for evaluation of vertebral deformity [...] within normallimits. Reported By: ANTHONY PALOMARES M.D. 37-Qzb-998999:09 BRAIN/HEAD W/WO CONTRAST Radiology Report See Note (Normal) Comments: Exam Number: [id number] CLINICAL:69 year old female with altered mental [...] are present. Reported By: ANTHONY GRIER M.D. 56-Two-82352:02 CBCD,SMEAR DIFF CELLS COUNTED 100 (Normal) LYMPH [...] mg/dL VLDL 32 mg/dL (Normal) Range: 5-40 13-Eqm-47573:02 MICROALB:CRE UR MALB:CREAT 38.4 {mg/g_CRE} (Abnormal) MICROALBUMIN,UR 47.5 mg/L (Normal) UR CREAT 123.4 mg/dL (Normal) 07-Jun-2009 VIT D,25 70073 19.7 ng/mL Range: 32.0-100.0 9:02 (Abnormal) Comments: Recent studies consider the lower limit of 32.0 ng/mL to tammy threshold for optimal health.Pepito ANNE. J Nutr. 2004;135(2):317- 22.Performed At: [facility]6[address] [place], [place] [id number] 07-Jun-2009 VITAMIN B12 328 pg/mL (Normal) Range: 254-1320 9:02 11-Feb-2009 Homocyst(e)ine, Plasma 9.8 umol/L (Normal) Comments: PERFORMED BY: [facility] [place] [address] [id number] 14:28 Range: 0.0-15.0 11-Feb-2009 Methylmalonic Acid, 336 nmol/L (Normal) Comments: PERFORMED BY: [employer] [address] [id number] 14:28 Serum Range: 73-376 Comments: The reference range for methylmalonic acid has been set at +3sd abovethe mean for healthy blood bank donors. In the clinical assessment ofpatients with megaloblastic anemias a cutoff of +3sd provides gr eaterspecificity in the diagnosis of the vitamin deficiency states,despite the sacrifice of some sensitivity. 11-Feb-2009 TSH 2.700 {uIU/mL} Comments: PERFORMED BY: [employer] [address] [id number] 14:28 (Normal) Range: 0.450-4.500 11-Feb-2009 Vitamin B12 231 pg/mL (Normal) Comments: PERFORMED BY: [employer] [address] [id number] 14:28 Range: 211-911 1-Qls-631165:09 HAND,MIN 3 VIEWS (MT) Radiology Report See Note (Normal) Comments: Exam Number: [id number] RIGHT WRIST CLINICAL DATAFell and injured the [...] osteoarthritis right hand. Reported By: FERNANDO TUCKER 8-Zah-424243:09 WRIST,MIN 3 VIEWS (MT) Radiology Report See Note (Normal) Comments: Exam Number: [id number] RIGHT WRIST CLINICAL DATAFell and injured the [...] osteoarthritis right hand. Reported By: FERNANDO TUCKER :42 METABOLIC PANEL, COMPREHENSIVE Comments: PATIENT WAS FASTINGPERFORMED BY: [employer] [facility] HospitalNextFitCritical access hospital [id number] (57913) A/G Ratio 1.9 (Normal) Range: 1.1-2.5 Albumin, [...] 141 mmol/L (Normal) Range: 135-145 :42 TSH (71829) Comments: PATIENT WAS FASTINGPERFORMED BY: [place] [id number] TSH 4.980 {uIU/mL} (Abnormal) Range: 0.450-4.500 :42 MICROALBUMIN: CREATININE RATIO Comments: PATIENT WAS FASTINGPERFORMED BY: [address] [id number] (27267) AND (48739) Creatinine, Urine 130.9 mg/dL (Normal) Range: 15.0-278.0 Microalb/Creat Ratio 66.4 {ug/mg_creat} (Abnormal) Range: 0.0-30.0 Microalbumin, Urine 86.9 ug/mL (Abnormal) Range: 0.0-17.0 :42 LIPID PANEL (35554) Comments: PATIENT WAS FASTINGPERFORMED BY: [address] [id number] Cholesterol, Total 148 mg/dL (Normal) Range: 100-199 HDL Cholesterol 42 mg/dL (Normal) Comments: According to ATP-III Guidelines, HDL-C >59 mg/dL is considered anegative risk factor for CHD. LDL Cholesterol Calc 78 mg/dL (Normal) Range: 0-99 LDL/HDL Ratio 1.9 {ratio_units} (Normal) Range: 0.0-3.2 Triglycerides 141 mg/dL (Normal) Range: 0-149 VLDL Cholesterol Priscilla 28 mg/dL (Normal) Range: 5-40 :42 CBC WITH MANUAL DIFF (25302) Comments: PATIENT WAS FASTINGClinical Information: ADD DRAW FEE [id number] ADD J 05943 PERFORMED BY: [address] [id number] Baso (Absolute) 0.1 {x10E3/uL} (Normal) Range: 0.0-0.2 [...] B-12 (CYANOCOBALAMIN) Comments: PATIENT WAS FASTINGPERFORMED BY: [facility], [id number] [facility] [id number] ([id number]) Vitamin B12 232 pg/mL (Normal) Range: 211-911 2-Iga-386369:06 Blood Glucose , Office (37553) Blood Glucose , Office 155 (Normal) :27 [...] (Normal) Range: 0.34-4.82 :27 HgA1C , Office (14956) Comments: done>Wf. HgA1C , Office 6.2 % (Normal) Range: 4.6 - 7.1 :27 Blood Glucose , Office (96183) Comments: done>Wf. Blood Glucose , Office 152 [...] 11.6-14.6 WBC 7.5 K/mm3 (Normal) Range: 4.4-11.0 4-Pkf-696960:55 COMP METABOLIC A/G 1.2 {RATIO} (Normal) Range: [...] Disease W/O Kidney Disease>/= 90 Stage One Hecfmr80 - 89 Stage Two Suspect Decrease d [...] T PROT 7.3 g/dL (Normal) Range: 6.4-8.2 1-Gnd-651712:55 LIPID CHOL 287 mg/dL (Abnormal) Comments: <200 [...] 500 mg/dL VLDL 50 mg/dL (Abnormal) Range: 5-40 4-Frw-987566:55 MICROALB:CRE UR MALB:CREAT 28.3 {mg/g_CRE} (Normal) MICROALBUMIN,UR 41.7 mg/L (Normal) UR CREAT 147.6 mg/dL (Normal) 9-Iqn-956659:55 TSH 5.53 {uIU/mL} (Abnormal) Range: 0.34-4.82 31-Uvr-697928:25 TSH 0.16 {uIU/mL} (Abnormal) Range: 0.34-4.82 31-Wmh-294890:31 HgA1C , Office (27604) Comments: done km HgA1C , Office 6.5 % (Normal) Range: 4.6 - 7.1 :31 Blood Glucose , Office (42257) Comments: done km Blood Glucose , Office 128 (Normal) 49-Axf-286416:01 TSH 5.15 {uIU/mL} (Abnormal) Range: 0.34-4.82 :12 HgA1C , Office (29601) Comments: done km HgA1C , Office 6.2 % (Normal) Range: 4.6 - 7.1 :12 Blood Glucose , Office (56944) Comments: done km Blood Glucose , Office 187 (Normal) :20 [...] Serum 117 ng/mL (Normal) Comments: PERFORMED BY: [facility] [id number] Range: 10-291 :33 Iron and TIBC Comments: PERFORMED BY: [facility] [id number] Iron Bind.Cap.(TIBC) 304 ug/dL (Normal) Range: 250-450 Iron Saturation 26 % (Normal) Range: 15-55 Iron, Serum 78 ug/dL (Normal) Range: 35-155 UIBC 226 ug/dL (Normal) Range: 150-375 : Vitamin B12 412 pg/mL (Normal) Comments: PERFORMED BY: [facility] [id number] [facility] [id number] Range: 211-911 :56 LIPID CHOL 222 [...] 500 mg/dL VLDL 34 mg/dL (Normal) Range: -40 :56 LIVER ALB 3.8 g/dL (Normal) Range: 3.4-5.0 ALK P 87 U/L (Normal) Range: 50-136 ALT 40 [iU]/L (Normal) Range: 30-65 AST 16 U/L (Normal) Range: 15-37 D BILI 0.05 mg/dL (Normal) Range: 0.00-0.30 T BILI 0.39 mg/dL (Normal) Range: 0.00-1.00 T PROT 6.9 g/dL (Normal) Range: 6.4-8.2 :07 HgA1C , Office (19010) Comments: done km HgA1C , Office 5.9 % (Normal) Range: 4.6 - 7.1 :07 Blood Glucose , Office (92164) Comments: done km Blood Glucose , Office [...] mg/dL (Abnormal) Range: 34-200 Comments: Performed At: [address] [id number] 03-Nhy-572096:08 IRON+TIBC IRON SATURATION 17.9 % (Normal) Range: [...] mg/dL (Normal) Range: 34-200 Comments: Performed At: [address] [id number] IRON+TIBC IRON SATURATION 17.1 % (Normal) [...] OR 'R' FOR RANDOM: 3 Range: 21-215 :15 CPKMB 0.5 ng/mL (Normal) Comments: Precautions*: NOT [...] 1.49 INDETERMINANT > OR = 1.50 SUGGEST DE :05 CPK TOTAL 149 U/L (Normal) Comments: Precautions*: NOT APPLICABLEINDICATE CK '1', '2', '3', OR 'R' FOR RANDOM: 2 Range: 21-215 :05 CPKMB 1.1 ng/mL (Normal) Comments: Precautions*: [...] 1.49 INDETERMINANT > OR = 1.50 SUGGEST DE 4-Zww-280321:15 PRO TIME Comments: Precautions*: NOT APPLICABLE INR 1.0 (Normal) PROTIME 12.6 s (Normal) Range: 11.7-13.3 :15 TROPONIN-I < 0.04 ng/mL (Normal) Comments: Precautions*: NOT APPLICABLE Comments: TROPONIN-I EXPECTED VALUES < 0.50 NEGATIVE 0.50 - 1.49 INDETERMINANT > OR = 1.50 SUGGEST DE 02-Nov-20069:00 BMP Comments: COMMENTS: FEARONPrecautions*: NOT APPLICABLEINDICATE CK [...] 1.49 INDETERMINANT > OR = 1.50 SUGGEST DE :48 HgA1C , Office (34862) HgA1C , Office 6.4 % (Normal) Range: 4.6 - 7.1 :48 Blood Glucose , Office (78674) Blood Glucose , Office 113 (Normal) Plan [...] Indication: Double vision Double vision : Reviewed Copyholder Letter Indication: Double vision Fatty liver : [...] BMI 36.0-36.9,adult Right hip pain : Reviewed Copyholder Letter Indication: Right hip pain Right hip [...] (monoclonal gammopathy of unknown significance) : Reviewed Copyholder Letter- stable and discharged from onc Indication: [...] Fall down steps, initial encounter : Reviewed Copyholder Letter Indication: Fall down steps, initial encounter [...] infarction, unspecified Cerebral infarction, unspecified : Reviewed Copyholder Letter Indication: Cerebral infarction, unspecified Upper respiratory [...] Planned Observations CBC, PLATELETS & AUT DIFF (02966)Indication: Other vitamin B12 deficiency anemia On: :17 Request TSH (09817)Indication: Abnormal TSH On: :38 Request T4, FREE (THYROXINE) (30315)Indication: Abnormal TSH On: :38 Request T3, FREE (TRIDOTHYRONINE) (36768)Indication: Abnormal TSH On: :38 Request ANTI-LIVER/KIDNEY MICROSOMAL ANTIBODY (15131)Indication: Elevated liver enzymes On: 80-Mdy-807116:34 Request TSH (95346)Indication: Abnormal TSH On: 44-Ybn-264557:31 Request T4, FREE (THYROXINE) (32847)Indication: Abnormal TSH On: 72-Adw-796834:31 Request T3, FREE (TRIDOTHYRONINE) (98176)Indication: Abnormal TSH On: 48-Efz-365226:31 Request BETA-2 MICROGLOBULIN (56494)Indication: Abnormal blood chemistry On: 34-Dhz-696408:08 Request Urinalysis, Office (40653)Indication: Urinary frequency On: 73-Flj-831408:38 Request CBC WITH MANUAL DIFF (11040)Indication: Therapeutic drug monitoring On: :57 Request Metabolic Panel, Basic (38305)Indication: Therapeutic drug monitoring On: :57 Request Methymalonic Acid, Serum (45695)Indication: Vitamin B 12 deficiency On: 76-Icj-665581:51 Request CALCIFIDIOL (71390) VIT D 25Indication: Vitamin D deficiency, unspecified On: 71-Lmq-383437:45 Request LIPID PANEL (10094)Indication: Other and unspecified hyperlipidemia On: 61-Sjm-161700:45 Request CALCIFIDIOL (37572) VIT D 25Indication: Uncontrolled type II diabetes mellitus On: :46 Request TSH (45132)Indication: Uncontrolled type II diabetes mellitus On: :46 Request URINALYSIS, W/ MICRO (64829)Indication: Uncontrolled type II diabetes mellitus On: :46 Request MICROALBUMIN: CREATININE RATIO (77324) AND (13259)Indication: Uncontrolled type II diabetes mellitus On: :46 Request METABOLIC PANEL, COMPREHENSIVE (22193)Indication: Uncontrolled type II diabetes mellitus On: :46 Request LIPID PANEL (30107)Indication: Uncontrolled type II diabetes mellitus On: :45 Request CBC W/AUTO DIFF WBC (62226)Indication: Uncontrolled type II diabetes mellitus On: :45 Request Rapid Flu (91142 x 2)Indication: Flu-like symptoms On: 03-Sjv-992089:12 Request VITAMIN B-12 (CYANOCOBALAMIN) (99896)Indication: Vitamin B 12 deficiency On: 75-Sgk-619177:45 Request FECAL OCCULT- Tubes sent home (08461)Indication: Encounter for screening for malignant neoplasm of colon (Renamed from Special screening for malignant neoplasms, colon) On: 43-Sun-107140:35 Request THYROXINE FREE (84509)Indication: Tachycardia On: 2-Vcw-202030:04 Request FREE TRIDOTHYRONINE (T3) (42489)Indication: Tachycardia On: 5-Mzs-224787:04 Request TSH (THYROID STIMULATING HORMONE) (01351)Indication: Tachycardia On: 9-Nkn-327266:04 Request serum immunofixation (51916)Indication: MGUS (monoclonal gammopathy of unknown significance) On: 59-Oyr-388937:14 Request urine immunofixation (12415)Indication: MGUS (monoclonal gammopathy of unknown significance) On: 01-Evw-577337:14 Request serum free light chains (57963)Indication: MGUS (monoclonal gammopathy of unknown significance) On: 71-Xtx-612368:14 Request CBC W/AUTO DIFF WBC (09075)Indication: Diabetes mellitus type 2, controlled On: :13 Request MICROALBUMIN: CREATININE RATIO (14822) AND (75705)Indication: Diabetes mellitus type 2, controlled On: 40-Nvo-420922:13 Request METABOLIC PANEL, COMPREHENSIVE (06968)Indication: Diabetes mellitus type 2, controlled On: 37-Kww-272153:13 Request LIPID PANEL (78424)Indication: Mixed hyperlipidemia On: 24-Xee-065052:13 Request VITAMIN B-12 (CYANOCOBALAMIN) (42209)Indication: Other vitamin B12 deficiency anemia On: :12 Request CBC (AUTO) (56157)Indication: Other vitamin B12 deficiency anemia On: :12 Request Vitamin D Hydroxy (18450)Indication: Vitamin D deficiency, unspecified On: :12 Request LIPID PANEL (22181)Indication: Mixed hyperlipidemia On: 5-Bgl-341620:42 Request METABOLIC PANEL, COMPREHENSIVE (61389)Indication: Benign essential hypertension (Renamed from Benign essential HTN) On: 1-Hii-368252:41 Request MICROALBUMIN: CREATININE RATIO (17432) AND (33419)Indication: Benign essential hypertension (Renamed from Benign essential HTN) On: 3-Uha-103775:41 Request SPEP (15982)Indication: Anemia, unspecified On: 14-Myl-627529:17 Request UPEP (27541)Indication: Anemia, unspecified On: 47-Jzs-098906:17 Request CBC W/AUTO DIFF WBC (81418)Indication: Iron (Fe) deficiency anemia On: 0-Gah-520355:38 Request TSH (05266)Indication: Acquired hypothyroidism On: 8-Oud-877544:38 Request TSH (44716)Indication: Acquired hypothyroidism On: 21-Gqc-699331:34 Request SPEP (53500)Indication: Iron (Fe) deficiency anemia On: 41-Axh-467027:34 Request UPEP (44766)Indication: Iron (Fe) deficiency anemia On: 21-Qae-509136:34 Request IRON BINDING CAPACITY (TIBC) (55075)Indication: Iron (Fe) deficiency anemia On: :34 Request FERRITIN (50720)Indication: Iron (Fe) deficiency anemia On: :34 Request IRON (57680)Indication: Iron (Fe) deficiency anemia On: :34 Request CBC, PLATELETS & AUT DIFF (40089)Indication: Other vitamin B12 deficiency anemia On: :34 Request VITAMIN B-12 (CYANOCOBALAMIN) (77438)Indication: Other vitamin B12 deficiency anemia On: :33 Request Hemoglobin Glyclated (HGB A1C) (90597)Indication: Diabetes mellitus type 2, controlled On: :33 Request CBC, PLATELETS & AUT DIFF (62722)Indication: Other vitamin B12 deficiency anemia On: : Request VITAMIN B-12 (CYANOCOBALAMIN) (70753)Indication: Other vitamin B12 deficiency anemia On: :30 Request METABOLIC PANEL, COMPREHENSIVE (07822)Indication: Benign essential hypertension (Renamed from Benign essential HTN) On: :30 Request LIPID PANEL (23910)Indication: Other and unspecified hyperlipidemia On: :30 Request Vitamin D Hydroxy (73548)Indication: Vitamin D deficiency, unspecified On: : Request MGVEY-RTEKYMWELYD-PVPZK (85273)Indication: Fatty liver On: :30 Request HNRVU-OTLDWRSDSVN-DATCU (43204)Indication: Fatty liver On: :24 Request LIPID PANEL (08147)Indication: Mixed hyperlipidemia On: :23 Request TSH (73488)Indication: Acquired hypothyroidism On: :23 Request MICROALBUMIN: CREATININE RATIO (89625) AND (51350)Indication: Diabetes mellitus type 2, controlled On: :23 Request METABOLIC PANEL, COMPREHENSIVE (47806)Indication: Diabetes mellitus type 2, controlled On: :23 Request Vitamin D Hydroxy (74184)Indication: Vitamin D deficiency, unspecified On: : Request CBC, PLATELETS & AUT DIFF (57722)Indication: Other vitamin B12 deficiency anemia On: :20 Request VITAMIN B-12 (CYANOCOBALAMIN) (98094)Indication: Other vitamin B12 deficiency anemia On: 56-Ewi-789227:20 Request Vitamin D Hydroxy (87909)Indication: Vitamin D deficiency, unspecified On: :38 Request VITAMIN B-12 (CYANOCOBALAMIN) (06201)Indication: Other vitamin B12 deficiency anemia On: : Request CBC W/AUTO DIFF WBC (75404)Indication: Other vitamin B12 deficiency anemia On: : Request TSH (06299)Indication: Acquired hypothyroidism On: : Request LIPID PANEL (90566)Indication: Mixed hyperlipidemia On: Request OSZGU-CNGXABKPGMM-FPZWJ (11034)Indication: Fatty liver On: : Request PTT (Activated Partial Thromboplastin Time) (03909)Indication: Fatty liver On: : Request PT (Prothrobim Time) (43798)Indication: Fatty liver On: : Request Vitamin D Hydroxy (32732)Indication: Vitamin D deficiency, unspecified On: : Request VITAMIN B-12 (CYANOCOBALAMIN) (71463)Indication: Other vitamin B12 deficiency anemia On: : Request CBC W/AUTO DIFF WBC (41580)Indication: Diabetes mellitus type 2, controlled On: : Request METABOLIC PANEL, COMPREHENSIVE (82996)Indication: Diabetes mellitus type 2, controlled On: : Request LIPID PANEL (55747)Indication: Mixed hyperlipidemia On: : Request LIPID PANEL (70988)Indication: HYPERTENSION, NOS On: :40 Request CBC WITH MANUAL DIFF (67588)Indication: HYPERTENSION, NOS On: :40 Request METABOLIC PANEL, COMPREHENSIVE (18595)Indication: HYPERTENSION, NOS On: :40 Request FECAL OCCULT- Tubes sent home (44068)Indication: Anemia, unspecified On: Request IRON (63936)Indication: Anemia, unspecified On: 33-Vgg-082007:38 Request CBC WITH MANUAL DIFF (08067)Indication: HYPERTENSION, NOS On: 0-Ppo-789541:29 Request METABOLIC PANEL, COMPREHENSIVE (96647)Indication: Uncontrolled type II diabetes mellitus On: 4-Zib-527248:28 Request TSH (THYROID STIMULATING HORMONE) (57985)Indication: Acquired hypothyroidism On: 67-Fyp-510670:08 Request HgA1C , Office (80536)Indication: Diabetes mellitus type 2, controlled On: 38-Gsj-260652:55 Request VITAMIN B-12 (CYANOCOBALAMIN) (43512)Indication: Other vitamin B12 deficiency anemia On: 9-Wjm-184380:17 Request LIPID PANEL (32242)Indication: Other and unspecified hyperlipidemia On: 3-Izt-929951:17 Request MICROALBUMIN: CREATININE RATIO (70345) AND (60517)Indication: Uncontrolled type II diabetes mellitus On: 6-Duu-488956:17 Request METABOLIC PANEL, COMPREHENSIVE (27326)Indication: Uncontrolled type II diabetes mellitus On: 5-Kou-906898:17 Request HgA1C , Office (35426)Indication: Diabetes mellitus type 2, controlled On: 13-Kqa-058432:25 Request LIPID PANEL (14483)Indication: Other and unspecified hyperlipidemia On: 33-Jly-706169:11 Request METABOLIC PANEL, COMPREHENSIVE (88370)Indication: Diabetes mellitus type 2, controlled On: 20-Edb-827305:11 Request MICROALBUMIN: CREATININE RATIO (47135) AND (00284)Indication: Diabetes mellitus type 2, controlled On: 46-Nmf-407257:11 Request VITAMIN B-12 (CYANOCOBALAMIN) (62272)Indication: Other vitamin B12 deficiency anemia On: 93-Jvf-123650:11 Request CBC, PLATELETS & AUT DIFF (42324)Indication: Other vitamin B12 deficiency anemia On: 42-Zxh-616098:11 Request Vitamin D Hydroxy (56757)Indication: Vitamin D deficiency, unspecified On: 33-Sqt-021626:10 Request Blood Glucose , Office (39401)Indication: Diabetes mellitus type 2, controlled On: :29 Request LIPID PANEL (89275)Indication: Other and unspecified hyperlipidemia On: :26 Request Vitamin D Hydroxy (96246)Indication: Vitamin D deficiency, unspecified On: 8-Mnv-957278:26 Request VITAMIN B-12 (CYANOCOBALAMIN) (18902)Indication: Other vitamin B12 deficiency anemia On: : Request METABOLIC PANEL, COMPREHENSIVE (42316)Indication: Benign essential hypertension (Renamed from Benign essential HTN) On: :26 Request MICROALBUMIN: CREATININE RATIO (71293) AND (57419)Indication: Uncontrolled type II diabetes mellitus On: : Request Sputum Culture (17265)Indication: Chronic cough On: 8-Njt-349414:58 Request RANI CULTURE-OTHER (17439)Indication: Sore throat On: 48-Lxs-192246:06 Request Urinalysis, Office (71598)Indication: Abnormal urine On: :14 Request RANI CULTURE-OTHER (42230)Indication: Abnormal urine On: 0-Jch-604017:14 Request CCP ANTIBODY (35409)Indication: History of poliomyelitis (Renamed from H/O acute poliomyelitis) On: : Request ANTI-Sm (ANTI [place] ANTIBODY) (53627) test code 496798Nhepyshnfw: History of poliomyelitis (Renamed from H/O acute poliomyelitis) On: : Request RHEUMATOID FACTOR-QUANT (03019) test code 207751Lnhxuhksxr: History of poliomyelitis (Renamed from H/O acute poliomyelitis) On: :22 Request Vitamin D Hydroxy (03463)Indication: Vitamin D deficiency, unspecified On: 04-Zkd-927618:15 Request LIPID PANEL (64734)Indication: Other and unspecified hyperlipidemia On: :15 Request TSH (84786)Indication: Acquired hypothyroidism On: 68-Qer-959220:15 Request METABOLIC PANEL, COMPREHENSIVE (61356)Indication: Diabetes mellitus type 2, controlled On: 75-Zst-748516:14 Request VITAMIN B-12 (CYANOCOBALAMIN) (84523)Indication: Other vitamin B12 deficiency anemia On: 89-Bct-667055:08 Request MICROALBUMIN: CREATININE RATIO (69251) AND (66162)Indication: Uncontrolled type II diabetes mellitus On: 59-Zys-301548:30 Request METABOLIC PANEL, COMPREHENSIVE (32575)Indication: Uncontrolled type II diabetes mellitus On: 97-Dmt-569252:30 Request TSH (99235)Indication: Acquired hypothyroidism On: 04-Ude-703028:30 Request Vitamin D Hydroxy (62358)Indication: Vitamin D deficiency, unspecified On: 49-Keh-073694:30 Request LIPID PANEL (81365)Indication: Other and unspecified hyperlipidemia On: 43-Bxq-763716:29 Request LIPID PANEL (93430)Indication: Other and unspecified hyperlipidemia On: 82-Jzk-068494:51 Request TSH (97698)Indication: Acquired hypothyroidism On: 19-Qcc-472244:50 Request Vitamin D Hydroxy (52393)Indication: Vitamin D deficiency, unspecified On: 88-Apa-522309:50 Request CBC WITH MANUAL DIFF (53826)Indication: Diabetes mellitus type 2, controlled On: :50 Request METABOLIC PANEL, COMPREHENSIVE (47907)Indication: Diabetes mellitus type 2, controlled On: :50 Request Vitamin D Hydroxy (06981)Indication: Vitamin D deficiency, unspecified On: :44 Request VITAMIN B-12 (CYANOCOBALAMIN) (03430)Indication: Other vitamin B12 deficiency anemia On: :44 Request CBC WITH MANUAL DIFF (37432)Indication: Anemia, unspecified On: :43 Request METABOLIC PANEL, COMPREHENSIVE (43196)Indication: Diabetes mellitus type 2, controlled On: 06-Gpo-067662:43 Request MICROALBUMIN: CREATININE RATIO (11118) AND (85840)Indication: Diabetes mellitus type 2, controlled On: :43 Request LIPID PANEL (07892)Indication: Other and unspecified hyperlipidemia On: 37-Nyv-468731:43 Request TSH (03210)Indication: Acquired hypothyroidism On: :43 Request Vitamin D Hydroxy (88883)Indication: Vitamin D deficiency, unspecified On: :03 Request LIPID PANEL (54043)Indication: Other and unspecified hyperlipidemia On: :03 Request CBC WITH MANUAL DIFF (33392)Indication: Diabetes mellitus type 2, controlled On: :02 Request METABOLIC PANEL, COMPREHENSIVE (53204)Indication: Diabetes mellitus type 2, controlled On: 6-Ptk-510287:02 Request VITAMIN B-12 (CYANOCOBALAMIN) (61287)Indication: Other vitamin B12 deficiency anemia On: :36 Request Comments: Lot #[id number]-left deltoidDose-1 mlgiven by: Dani Rivera LPN LIPID PANEL (07538)Indication: Other and unspecified hyperlipidemia On: : Request METABOLIC PANEL, COMPREHENSIVE (23091)Indication: Uncontrolled type II diabetes mellitus On: : Request TSH (88749)Indication: Acquired hypothyroidism On: : Request Vitamin D Hydroxy (70250)Indication: Vitamin D deficiency, unspecified On: : Request CBC WITH MANUAL DIFF (83607)Indication: Anemia, unspecified On: : Request CBC WITH MANUAL DIFF (36393)Indication: Other vitamin B12 deficiency anemia On: :20 Request Blood Glucose , Office (51050)Indication: Uncontrolled type II diabetes mellitus On: :15 Request Comments: 149 HgA1C , Office (37577)Indication: Uncontrolled type II diabetes mellitus On: :15 Request METABOLIC PANEL, COMPREHENSIVE (40523)Indication: Other and unspecified hyperlipidemia On: :22 Request LIPID PANEL (90374)Indication: Other and unspecified hyperlipidemia On: :22 Request TSH (40504)Indication: Acquired hypothyroidism On: 83-Rby-168184:22 Request HEMOGLOBIN GLYCLATED (HGB A1C) (39638)Indication: Abnormal glucose tolerance test On: 18-Yig-831933:20 Request VITAMIN B-12 (CYANOCOBALAMIN) (21067)Indication: Other vitamin B12 deficiency anemia On: 79-Vqw-296866:17 Request Vitamin D Hydroxy (81957)Indication: Vitamin D deficiency, unspecified On: 2-Kij-310258:21 Request VITAMIN B-12 (CYANOCOBALAMIN) (26820)Indication: Other vitamin B12 deficiency anemia On: 1-Szs-462402:20 Request LIPID PANEL (17716)Indication: Abnormal glucose tolerance test On: 4-Wnp-099854:20 Request CBC WITH MANUAL DIFF (27176)Indication: Abnormal glucose tolerance test On: :20 Request METABOLIC PANEL, COMPREHENSIVE (26619)Indication: Abnormal glucose tolerance test On: :20 Request METABOLIC PANEL, COMPREHENSIVE (81592)Indication: Abnormal glucose tolerance test On: 9-Usf-076776:59 Request CBC WITH MANUAL DIFF (65285)Indication: Abnormal glucose tolerance test On: :59 Request Vitamin D Hydroxy (64176)Indication: Vitamin D deficiency, unspecified On: :59 Request VITAMIN B-12 (CYANOCOBALAMIN) (41875)Indication: Other vitamin B12 deficiency anemia On: :59 Request TSH (40642)Indication: Acquired hypothyroidism On: 9-Uwa-884333:58 Request LIPID PANEL (36128)Indication: Other and unspecified hyperlipidemia On: :58 Request CCP ANTIBODY (25695)Indication: Pain in unspecified joint On: 44-Txx-597334:22 Request VITAMIN B-12 (CYANOCOBALAMIN) (36143)Indication: Other vitamin B12 deficiency anemia On: 6-Ibb-538751:10 Request Vitamin D Hydroxy (18191)Indication: Vitamin D deficiency, unspecified On: 5-Xme-932843:10 Request MICROALBUMIN: CREATININE RATIO (57871) AND (13923)Indication: Uncontrolled type II diabetes mellitus On: 8-Rwn-085056:10 Request CBC WITH MANUAL DIFF (35317)Indication: Uncontrolled type II diabetes mellitus On: 4-Qkq-542332:10 Request METABOLIC PANEL, COMPREHENSIVE (89368)Indication: Benign essential hypertension (Renamed from Benign essential HTN) On: 3-Zjq-035917:09 Request LIPID PANEL (15274)Indication: Other and unspecified hyperlipidemia On: 8-Pix-353623:09 Request TSH (66834)Indication: Acquired hypothyroidism On: 1-Ngf-607360:39 Request VITAMIN B-12 (CYANOCOBALAMIN) (85631)Indication: Other vitamin B12 deficiency anemia On: 6-Xar-617819:37 Request HEPATIC FUNCTION PANEL (77958)Indication: Other and unspecified hyperlipidemia On: 5-Urg-430682:36 Request LIPID PANEL (95112)Indication: Other and unspecified hyperlipidemia On: 7-Pbl-844918:36 Request Vitamin D Hydroxy (81522)Indication: Vitamin D deficiency, unspecified On: 8-Sbj-184650:36 Request METABOLIC PANEL, COMPREHENSIVE (53516)Indication: Benign essential hypertension (Renamed from Benign essential HTN) On: :35 Request LIPID PANEL (13475)Indication: Other and unspecified hyperlipidemia On: :35 Request Vitamin D Hydroxy (97650)Indication: Vitamin D deficiency, unspecified On: :30 Request Vitamin D Hydroxy (73408)Indication: Vitamin D deficiency, unspecified On: 83-Dwy-269947:10 Request MICROALBUMIN: CREATININE RATIO (62219) AND (04965)Indication: Uncontrolled type II diabetes mellitus On: 45-Mwa-961906:07 Request LIPID PANEL (07342)Indication: Other and unspecified hyperlipidemia On: 00-Xmy-224760:07 Request TSH (34722)Indication: Acquired hypothyroidism On: 14-Sox-092529:07 Request VITAMIN B-12 (CYANOCOBALAMIN) (84291)Indication: Other vitamin B12 deficiency anemia On: 93-Mqr-425457:42 Request Vitamin D Hydroxy (43294)Indication: Vitamin D deficiency, unspecified On: 35-Ssw-372702:50 Request IRON BINDING CAPACITY (TIBC) (74975)Indication: Iron (Fe) deficiency anemia On: 66-Hee-323238:50 Request LDH (LD) (LACTATE DEHYDROGENASE) (98884)Indication: Iron (Fe) deficiency anemia On: 16-Gpn-219053:50 Request FERRITIN (21453)Indication: Iron (Fe) deficiency anemia On: 50-Hhr-033316:50 Request IRON (32026)Indication: Iron (Fe) deficiency anemia On: 09-Fih-553497:50 Request CBC WITH MANUAL DIFF (90799)Indication: Iron (Fe) deficiency anemia On: 43-Pcp-893026:50 Request HEPATIC FUNCTION PANEL (31660)Indication: Other and unspecified hyperlipidemia On: 73-Yba-183443:44 Request LIPID PANEL (05884)Indication: Other and unspecified hyperlipidemia On: :44 Request CBC WITH MANUAL DIFF (01157)Indication: Other vitamin B12 deficiency anemia On: 4-Cjv-619133:54 Request MICROALBUMIN: CREATININE RATIO (74110) AND (95614)Indication: Glucose intolerance (no malabsorption) On: 7-Qpv-354229:54 Request METABOLIC PANEL, COMPREHENSIVE (40651)Indication: HYPERTENSION, NOS On: 2-Mck-846454:54 Request LIPID PANEL (91718)Indication: Other and unspecified hyperlipidemia On: 2-Dpu-853571:53 Request VITAMIN B-12 (CYANOCOBALAMIN) (09240)Indication: Other vitamin B12 deficiency anemia On: :53 Request IRON (69046)Indication: Iron (Fe) deficiency anemia On: :53 Request Vitamin D Hydroxy (80743)Indication: Osteopenia On: :49 Request Methylmalonic acid, serum 56025Vjnlfyzijr: Other vitamin B12 deficiency anemia On: 26-Lai-833709:03 Request VITAMIN B-12 (CYANOCOBALAMIN) (34694)Indication: Other vitamin B12 deficiency anemia On: :03 Request TSH (16513)Indication: Acquired hypothyroidism On: :03 Request HgA1C , Office ([id number])Indication: Abnormal glucose tolerance test On: 8-Eou-066241:06 Request TSH ([id number])Indication: Acquired hypothyroidism On: :35 Request LIPID PANEL ([id number])Indication: Other and unspecified hyperlipidemia On: :35 Request METABOLIC PANEL, COMPREHENSIVE ([id number])Indication: SOB (shortness of breath) on exertion On: :34 Request CBC WITH MANUAL DIFF ([id number])Indication: SOB (shortness of breath) on exertion On: :34 Request TSH ([id number])Indication: Acquired hypothyroidism On: 8-Ybz-967979:46 Request Comments: do in 6 weeks TSH ([id number])Indication: Acquired hypothyroidism On: 30-Pie-540084:15 Request Comments: DO IN 6 WEEKS WITH MEDICATION CHANGE TSH ([id number])Indication: Other malaise and fatigue On: 12-Hbt-44707:49 Request Iron Binding Capacity (TIBC) (65952)Indication: Iron (Fe) deficiency anemia On: 58-Rfh-537779:43 Request Ferritin (66440)Indication: Iron (Fe) deficiency anemia On: :43 Request Iron (06708)Indication: Iron (Fe) deficiency anemia On: :43 Request HEPATIC FUNCTION PANEL (22289)Indication: Mixed hyperlipidemia On: :42 Request LIPID PANEL (38279)Indication: Mixed hyperlipidemia On: :42 Request Comments: do in 3 months HEPATIC FUNCTION PANEL (46004)Indication: Mixed hyperlipidemia On: :11 Request LIPID PANEL ([id number])Indication: Mixed hyperlipidemia On: 3-Rfk-459694:11 Request Comments: do in 3 mo TSH (65781)Indication: Acquired hypothyroidism On: :23 Request VITAMIN B-12 (CYANOCOBALAMIN) (11489)Indication: Anemia, unspecified On: :23 Request LDH (LD) (LACTATE DEHYDROGENASE) ([id number])Indication: Anemia, unspecified On: :23 Request RETICULOCYTE COUNT MANUL (35294)Indication: Anemia, unspecified On: :23 Request IRON BINDING CAPACITY (TIBC) ([id number])Indication: Anemia, unspecified On: :23 Request IRON ([id number])Indication: Anemia, unspecified On: :23 Request FOLIC ACID SERUM (56887)Indication: Anemia, unspecified On: :23 Request HAPTOGLOBIN ([id number])Indication: Anemia, unspecified On: :23 Request FERRITIN ([id number])Indication: Anemia, unspecified On: :23 Request CBC, PLATELETS & AUT DIFF ([id number])Indication: Anemia, unspecified On: :23 Request HgA1C , Office (85364)Indication: Abnormal glucose tolerance test On: :03 Request CBC with manual diff ([id number])Indication: Anemia, unspecified On: 30-Bqk-127314:49 Request HgA1C , Office (93372)Indication: Abnormal glucose tolerance test On: 06-Agp-695031:30 Request Comments: controlled URINALYSIS W/O MICRO ([id number])Indication: HYPERTENSION, NOS On: :03 Request TSH ([id number])Indication: Acquired hypothyroidism On: :03 Request MICROALBUMIN URINE QUANT ([id number])Indication: HYPERTENSION, NOS On: :03 Request METABOLIC PANEL, COMPREHENSIVE ([id number])Indication: HYPERTENSION, NOS On: :03 Request LIPID PANEL ([id number])Indication: HYPERTENSION, NOS On: : Request CBC WITH MANUAL DIFF ([id number])Indication: HYPERTENSION, NOS On: : Request Planned Encounters Medical; 2 Week FU - On: 31-Jul-2018 12:00 [facility] Doris Navarro DO, DO, Doris Jay DO Planned Procedures Radiology - Lumbar SpineBy: Melanie On: 24-Jun-2018 Intent Doris KEBEDE DO, Doris Jay DO Aerosol Treatment ([id number])By: On: 14-Apr-2018 Intent Thelma Sofia Comments: Lungs clear after albuterol aerosol treatment Ultrasound - LiverBy: Melanie KEBEDE, On: 21-Nov-2017 Intent Doris Navarro DO, Doris Jay DO B 12 Injection, 1000 mcg (J3420)By: On: 21-Nov-2017 Doris Guerrero DO, DO, Comments: Vitamin b12 1000mcg injection lot:[id number]:04/2019L DELT IMpt tolerated well [facility],WEB SERVICES MANAGER Doris Jay DO PHYSICAL THERAPY (07397)By: [place] On: 28-Oct-2017 Intent Thelma Radiology - Hip - LeftBy: [place], On: 28-Oct-2017 Intent Thelma Aerosol Treatment ([id number])By: Melanie On: 07-Aug-2017 Intent Doris KEBEDE DO, Kathleen Comments: more a/e less nois e Doris Navarro DO Spirometry ([id number])By: Melanie KEBEDE, On: 07-Aug-2017 Intent Doris Jay DO Comments: really poor techniq DO, Doris Radiology - Chest- PA and LatBy: On: 07-Aug-2017 Intent Melanie DO, Doris Melanie DO, Doris Melanie DO, Doris IV Needle placement (00955)By: On: 02-Aug-2017 Intent Melanie DO, Doris Melanie DO, Doris Melanie DO, Doris INFUSION, NORMAL SALINE SOLUTION , On: 02-Aug-2017 Intent 1000 CC (Special Coverage Comments: lot:[id number]:02-26-2019rte:right anticubdose:1000ml given by:david Snow, CARYN Instructions Apply. See MCM: 2048) ([id number])By: Melanie KEBEDE, Doris Melanie DO, Doris Melanie DO, Doris INFUSION, NORMAL SALINE SOLUTION , On: 01-Aug-2017 Intent 1000 CC (Special Coverage Comments: lot:[id number]:02-26-2019rte:IV left anticubdose:1000ml NS given by:david Snow, WEB SERVICES MANAGER Instructions Apply. See MCM: 2048) ([id number])By: Marcia Britton Aerosol Treatment ([id number])By: Melanie On: 01-Aug-2017 Intent DO, Doris Navarro DO, Doris Comments: more a/e less junky sounding Doris Navarro DO PNEUM VAC ADLT/IMUMNOSPR, SBC/INTRM On: 25-Apr-2017 Intent ([id number])By: Doris Navarro DO Comments: 0.5cc given sq [place] arm lot [id number] exp 09/05/18 Melanie KEBEDE, Doris Navarro DOJdDoris INTENSIVE BEHAVIORAL THERAPY TO On: 25-Apr-2017 Intent REDUCE CARDIOVASCULAR DISEASE RISK, INDIVIDUAL, GDZE-ES-[id number], ANNUAL, 15 MINUTES (G0446)By: Doris Navarro DO Melanie DO, Doris Melanie DO, Doris [id number] BEHAVIORAL COUNSELING On: 25-Apr-2017 Intent FOR OBESITY, 15 MINUTES (G0447)By: Doris Navarro DO DO, Doris Navarro DODoris B 12 Injection, 1000 mcg (J3420)By: On: 25-Apr-2017 Intent Doris Navarro DO DO, Comments: 1 ml given lt arm lot [id number] exp 8/18 Doris Melanie DO, Doris ELECTROCARDIOGRAM, COMPLETE (ECG) On: 25-Apr-2017 Intent ([id number])By: Doris Navarro DO Comments: nsr no acute chg Melanie DO, Doris Melanie DO, Doris B 12 Injection, 1000 mcg (J3420)By: On: 14-Mar-2017 Intent Melanie DO, Doris Melanie DO, Comments: lot [id number] 09/16left [id number] mcgas, WEB SERVICES MANAGER Doris Melanie DO, Doris B 12 Injection, 1000 mcg (J3420)By: On: 31-Dec-2016 Intent Melanie DO, Doris Melanie DO, Comments: [id number], WEB SERVICES MANAGER Doris Melanie DO, Doris B 12 Injection, 1000 mcg (J3420)By: On: 20-Sep-2016 Intent Melanie DO, Doris Melanie DO, Comments: lot:[id number]: 11/13Dose: 1,000 mcgSite: R dltdLocation; IMby:, WEB SERVICES MANAGER Doris Melanie DO, Doris Solu- Medrol Injection, 125mg On: 20-Aug-2016 Intent (J2930)By: Doris Navarro DO Comments: lot: [id number]: 01/14site/route: LGM/IMamt:2mLVIS signed when applicableChelsea, AUTOMOBILE TIRE BUILDER Melanie DO, Doris Melanie DO, Doris Aerosol Treatment ([id number])By: Melanie On: 20-Aug-2016 Intent DO, Doris Melanie DO, Doris Comments: albulterol 0.83%relistedned nad more a/e less noise Melanie DO, Doris B 12 Injection, 1000 mcg (J3420)By: On: 20-Aug-2016 Intent Melanie DO, Doris Melanie DO, Comments: lot: [id number]: ite/route: L del/IMamt: 1mLVIS signed when applicableChelsea, AUTOMOBILE TIRE BUILDER Doris Melanie DO, Doris Spirometry (60659)By: Melanie KEBEDE, On: 16-Aug-2016 Intent Doris Melanie DO, Doris Melanie Comments: ok stable - DO Doris Aerosol Treatment ([id number])By: Melanie On: 16-Aug-2016 Intent Doris KEBEDE DO, Kathleen Comments: albulterol 0.83%more a.e stil some niose in RUL -- junky and easy to cough Doris Navarro DO Solu- Medrol Injection, 125mg On: 16-Aug-2016 Intent (J2930)By: Doris Navarro DO Comments: lot [id number] mgright gm, IMas WEB SERVICES MANAGER Melanie DO, Doris Melanie DO, Doris B 12 Injection, 1000 mcg (J3420)By: On: 20-Jul-2016 Intent Doris Navarro DO, DO, Comments: B12lot:6202exp:ite:rt deltroute:IMdose:1mlD.HAY Valentin Melanie DODoris Solu- Medrol Injection, 125mg On: 20-Jul-2016 Intent (J2930)By: Doris Navarro DO Comments: lot: [id number]: 01/14site/route: RGM/IMamt: 2mLVIS signed when applicableChelsSIMI jamison Melanie DO, Doris Melanie DO, Doris Aerosol Treatment ([id number])By: Melanie On: 20-Jul-2016 Intent Doris KEBEDE DO, Kathleen Comments: less wheeze good a/e- less irritability with breathing Doris Navarro DO Radiology - Chest- PA and LatBy: On: 20-Jul-2016 Intent Doris Navarro DO Melanie DO, Doris MelanieDoris driscoll DO Spirometry ([id number])By: Melanie KEBEDE, On: 20-Jul-2016 Intent Doris Jay DO Comments: mild restriction =- poor curve and technique Doris KEBEDE ELECTROCARDIOGRAM, COMPLETE (ECG) On: 20-Jul-2016 Intent ([id number])By: Doris Navarro DO Comments: sinus braden no acute chg Melanie DODoris Melanie DO, Doris B 12 Injection, 1000 mcg (J3420)By: On: 29-May-2016 Intent Melanie DO, Doris Melanie DO, Comments: Lot:[id number]:11/13Dose:1mlRoute:IMSite:joe geigerGiven By:SAADIA signed Doris Melanie DO, Doris Flu Vaccine (Quadrivalent) [id number]: On: 29-May-2016 Intent Melanie DO, Doris Melanie DO, Comments: Lot:[id number]:01/25/17Dose:0.5mLRoute:IMSite:L DltdGiven By:SAADIA signed Doris Melanie DO, Doris B 12 Injection, 1000 mcg (J3420)By: On: 21-May-2016 Intent Melanie DO, Doris Melanie DO, Doris Melanie DO, Doris B 12 Injection, 1000 mcg (J3420)By: On: 18-May-2016 Intent Melanie DO, Doris Melanie DO, Comments: B12lot:6185exp:ite:rt deltroute:IMdose:1mlD.HAY Valentin Doris Melanie DO, Doris B 12 Injection, 1000 mcg (J3420)By: On: 11-May-2016 Intent Melanie DO, Doris Melanie DO, Comments: lot [id number] [facility] dltdaCARYN milligan Doris Melanie DO, Doris B 12 Injection, 1000 mcg (J3420)By: On: 08-May-2016 Intent Melanie DO, Doris Melanie DO, Comments: B12lot:6185exp:ite:rt deltroute:IMdose:1mlD.HAY Valentin Doris Melanie DO, Doris B 12 Injection, 1000 mcg (J3420)By: On: 04-May-2016 Intent Visit, Nurse Comments: given - see flowsheet B 12 Injection, 1000 mcg (J3420)By: On: 27-Apr-2016 Intent Melanie DO, Doris Melanie DO, Comments: Lot:[id number]:11/13Dose:1mlRoute:IMSite:anuel Bauer By:SAADIA signed Doris Melanie DO, Doris B 12 Injection, 1000 mcg (J3420)By: On: 20-Apr-2016 Intent Melanie DO, Doris Melanie DO, Comments: lot: [id number]: ite/route: R del/IMamt: 1mLVIS signed when applicableJyothilsSIMI jamison Doris Melanie DO, Doris B 12 Injection, 1000 mcg (J3420)By: On: 13-Apr-2016 Intent Mckinley Valentin Comments: B12lot:6185exp:ite:lt deltroute:IMdose:1mlD.HAY Valentin INTENSIVE BEHAVIORAL THERAPY TO On: 09-Apr-2016 Intent REDUCE CARDIOVASCULAR DISEASE RISK, INDIVIDUAL, GEHW-SQ-DCVF, ANNUAL, 15 MINUTES (G0446)By: Melanie DO, Doris Melanie DO, Doris Melanie DO, Doris MYSO-PN-ZVZB BEHAVIORAL COUNSELING On: 09-Apr-2016 Intent FOR OBESITY, 15 MINUTES (G0447)By: Melanie DO, Doris Melanie DO, Doris Melanie DO, Doris MAMMOGRAM, SCREENING, BOTH BREAST On: 09-Apr-2016 Intent ([id number])By: Melanie DO, Doris Melanie DO, Doris Melanie DO, Doris DEXA SCAN AXIAL SKELETON (16537)By: On: 09-Apr-2016 Intent Melanie DO, Doris Melanie [...] Valentin Doris Melanie DO, Doris Echo CompleteBy: Alexy KEBEDE, Maggie A On: 28-Dec-2015 Intent B 12 Injection, 1000 mcg (J3420)By: On: 05-Dec-2015 Intent Fast DO, Maggie A Comments: Lot:[id number]:12/13Dose:1mlRoute:IMSite:r arm Given By:SAADIA signed Echo CompleteBy: Alexy KEBEDE Maggie A On: 05-Dec-2015 Intent Radiology - Chest- PA and LatBy: On: 07-Sep-2015 Intent Fast DO, Maggie A B 12 Injection, 1000 mcg (J3420)By: On: 19-Aug-2015 Intent Alexy DO Maggie A Comments: Lot:[id number]:04/14Dose:1mlRoute:IMSite:l armGiven By:SAADIA signed Aerosol Treatment (77490)By: Alexy On: 03-Aug-2015 Intent DO, Maggie A B 12 Injection, 1000 mcg (J3420)By: On: 17-May-2015 Intent Camelia Tracey DOa A Comments: Lot:[id number]:11/12Dose:1mlRoute:IMSite:l armGiven By:SAADIA signed Flu Vaccine (Quadrivalent) 55077Pb: On: 17-May-2015 Intent Camelia Tracey DOa A Comments: lot [id number]: 01/26/2016site/route L sol, IMamt 0.5mlVIS and ABN signed when applicableChelsea, CMAFM4 ADMINISTRATION OF INFLUENZA VIRUS On: 17-May-2015 Intent VACCINE (G0008)By: Camelia Tracey DOa A B 12 Injection, 1000 mcg (J3420)By: On: 15-Feb-2015 Intent Kanika Georges Comments: Lot:[id number]:11.16Route:IMSite:R deltoidDose: 1 mLgiven by: Kanika Georges CMA DANIEL (Ankle Brachial Index) On: 08-Feb-2015 Intent ([id number])By: Camelia Tracey DOa A Radiology - Lumbar SpineBy: Alexy KEBEDE, On: 08-Feb-2015 Intent Maggie A Ultrasound - ThyroidBy: Alexy KEBEDE, On: 09-Nov-2014 Intent Maggie A B 12 Injection, 1000 mcg (J3420)By: On: 09-Nov-2014 Intent Alexy KEBEDE Maggie A Comments: lot [id number] mcgleft dltdIMas, WEB SERVICES MANAGER Radiology - Chest- PA and LatBy: On: 13-Sep-2014 Intent Alexy KEBEDE Maggie A Comments: call stat Pulse Oximetry (07817)By: Alexy KEBEDE On: 13-Sep-2014 Intent Maggie Armstrong Comments: 97% Inhaler Demonstration (58918)By: On: 07-Sep-2014 Intent Kimberley Loyd CNP Radiology - Chest- PA and LatBy: On: 14-Jul-2014 Intent Maggie Tracey DO Comments: call rsults Spirometry (19612)By: Alexy KEBEDE, On: 14-Jul-2014 Intent Maggie Armstrong Comments: good effort and curve mild rest /obst Prevnar 13 (04650)By: Alexy KEBEDE, On: 30-Jun-2014 Intent Maggie Armstrong Comments: lot [id number] 09/2015location L armroute imgiven by - msmithVIS and/or ABN signed MAMMOGRAM, SCREENING, BOTH BREAST On: 14-Apr-2014 Intent ([id number])By: Maggie Trcaey DO B 12 Injection, 1000 mcg (J3420)By: On: 14-Apr-2014 Intent Maggie Tracey DO Comments: Lot #:[id number] date:mount given:1mlRoute: IMSite given: left deltoidGiven by: HAY Zavala Cartoid DopplerBy: Maggie Tracey DO On: 14-Apr-2014 Intent Eprescribed prescriptions (G8553)By: On: 07-Oct-2013 Intent Maggie Tracey DO DXA, BONE DENSITY, AXIAL SKELETON On: 20-Jul-2013 Intent ([id number])By: Maggie Tracey DO Comments: aug Pelvic and Breast, Medicare On: 20-Jul-2013 Intent (G0101)By: Maggie Tracey DO Cartoid DopplerBy: Maggie Tracey DO On: 07-Jul-2013 Intent Eprescribed prescriptions (G8553)By: On: 07-Jul-2013 Intent Raiza Ortiz FLU VAC, SPLIT, >3 YEARS, INTRAMUSC On: 04-May-2013 Intent (40098)By: Maritza Cantor Comments: lot [id number] 2014site/route L sol, IMamt 0.5mlVIS and ABN signed when applicableChelsea, [facility]MINISTRATION OF INFLUENZA VIRUS On: 04-May-2013 Intent VACCINE (G0008)By: Manchak, Maritza Radiology - Hip - LeftBy: Alexy KEBEDE, On: 07-Apr-2013 Intent Maggie Armstrong Eprescribed prescriptions (G8553)By: On: 07-Apr-2013 Intent Raiza Ortiz Eprescribed prescriptions (G8553)By: On: 05-Jan-2013 Intent Raiza Ortiz Spirometry (80517)By: Alexy KEBEDE, On: 01-Dec-2012 Intent Maggie Armstrong Comments: good effort and curve normal Radiology - Chest- PA and LatBy: On: 01-Dec-2012 Intent Maggie Tracey DO Comments: stat call wet read Eprescribed prescriptions (G8553)By: On: 01-Dec-2012 Intent Raiza Ortiz Pulse Oximetry (71606)By: Angel, On: 01-Dec-2012 Intent Raiza Comments: 98% Eprescribed prescriptions (G8553)By: On: 27-Nov-2012 Intent Melanie DO, Doris Melanie DO, Doris Melanie DO, Doris MAMMOGRAM, SCREENING, BOTH BREASTS On: 29-Sep-2012 Intent (84029)By: Maggie Tracey DO EKG (83718)By: Raiza Ortiz On: 29-Sep-2012 Intent Comments: ekg- 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 axis and no acute st t wave changes Eprescribed prescriptions (G8553)By: On: 29-Sep-2012 Intent Raiza Ortiz Eprescribed prescriptions (G8553)By: On: 03-Sep-2012 Intent Raiza Ortiz Eprescribed prescriptions (G8553)By: On: 30-Jul-2012 Intent Raiza Ortiz B 12 Injection, 1000 mcg (J3420)By: On: 23-Jun-2012 Intent Maggie Tracey DO Comments: Lot:[id number]:Dose:1mlRoute:IMSite:Anuel Bauer By:SAADIA signed Eprescribed prescriptions (G8553)By: On: 23-Jun-2012 Intent Raiza Ortiz B 12 Injection, 1000 mcg (J3420)By: On: 25-Mar-2012 Intent Maricruz Rivera LPN Comments: Lot #[id number]-06/10Site-right deltoidDose-1 mlgiven by: Dani Rivera LPN Eprescribed prescriptions (G8553)By: On: 25-Mar-2012 Intent Alexy DO Maggie A FLU VAC, SPLIT, >3 YEARS, INTRAMUSC On: 25-Mar-2012 Intent ([id number])By: Patsy Leslie LPN Comments: Lot/Exp: [id number], 12/2011Given in L Dltd, IMPrefilled SyringeBy CARYN Garner ADMINISTRATION OF INFLUENZA VIRUS On: 25-Mar-2012 Intent VACCINE (G0008)By: Patsy Leslie LPN Echo CompleteBy: Fast DO, Maggie A On: 07-Dec-2011 Intent B 12 Injection, 1000 mcg (J3420)By: On: 07-Dec-2011 [address] L[address] CT - OtherBy: Fast DO, Maggie A On: 03-Oct-2011 Intent Comments: get cta of carotid arteries TDAP VACCINE >7 IM ([id number])By: On: 03-Oct-2011 Intent Raiza Ortiz B 12 Injection, 1000 mcg (J3420)By: On: 07-Sep-2011 Intent Raiza Ortiz Comments: Lot #[id number]-07/09Site-left deltoidDose-1 mlgiven by: Dani Rivera LPN Cartoid DopplerBy: Fast DO, Maggie A On: 07-Sep-2011 Intent Comments: in september DXA, BONE DENSITY, AXIAL SKELETON On: 07-Sep-2011 Intent ([id number])By: Fast DO Maggie A MAMMOGRAM, SCREENING, BOTH BREASTS On: 07-Sep-2011 Intent (57086)By: Fast DO Maggie A Aerosol Treatment (03856)By: Ciesa On: 08-Aug-2011 Intent Kimberley LOVE EKG (78139)By: Raiza Ortiz On: 06-Jun-2011 Intent Comments: ekg showed normal sinus rhythym, left axis, no acute st/t wave changes DXA, BONE DENSITY, AXIAL SKELETON On: 06-Jun-2011 Intent (33704)By: Fast DO, Maggie A FLU VAC, SPLIT, >3 YEARS, INTRAMUSC On: 11-May-2011 Intent (20679)By: Maricruz Rivera LPN Comments: Lot #[id number]-88/20/Site-left deltoidgiven by: Dani Rivera LPN B 12 Injection, 1000 mcg (J3420)By: On: 11-May-2011 Intent Maricruz Rivera LPN Comments: Lot #[id number]-3/Site-right deltoidDose-1 mlgiven by: Dani Rivera LPN ADMINISTRATION OF INFLUENZA VIRUS On: 11-May-2011 Intent VACCINE (G0008)By: Maricruz Rivera LPN B 12 Injection, 1000 mcg (J3420)By: On: 05-Mar-2011 Intent Maggie Tracey DO Comments: Lot #[id number]-left deltoidDose-1 mlgiven by: Dani Rivera LPN Eprescribed [...] given:left deltoidGiven by: HAY Zavala Cartoid DopplerBy: aMggie Tracey DO A On: 24-Oct-2010 Intent Pap Smear, Medicare (Q0091)By: On: 05-Sep-2010 Intent Raiza Ortiz Pelvic and Breast, Medicare On: 05-Sep-2010 Intent (G0101)By: Raiza Ortiz PNEUM VAC ADLT/IMUMNOSPR, SBC/INTRM On: 03-Jul-2010 Intent (05091)By: Maggie Tracey DO Comments: Lot #[id number]-3/10/07Site-left deltoidDose- 0.5mlgiven by:GAL ADMINISTRATION OF PNEUMOCOCCAL On: 03-Jul-2010 Intent VACCINE (G0009)By: Maggie Tracey DO MAMMOGRAM, SCREENING, BOTH BREASTS On: 03-Jul-2010 Intent (62427)By: Maggie Tracey DO B 12 Injection, 1000 mcg (J3420)By: On: 20-Jun-2010 Intent Maggie Tracey DO Comments: Lot #[id number]-12/07Site-left deltoidDose-1 mlgiven by:[facility] B 12 Injection, 1000 mcg (J3420)By: On: 10-May-2010 Intent Apoorva Calle Comments: Lot:[id number]:12/07Dose:1000mcg/1mlRoute:IMSite:right deltoid Given by: HAY Birch FLU VAC, SPLIT, >3 YEARS, INTRAMUSC On: 10-May-2010 Intent (10991)By: Apoorva Calle Comments: Lot:[id number]:10/2010Dose:0.5mlRoute:IMSite:Left Deltoid Given by: HAY Birch ADMINISTRATION OF INFLUENZA VIRUS On: 10-May-2010 Intent VACCINE (G0008)By: Apoorva Calle Doppler Ultrasound OtherBy: Alexy KEBEDE, On: 12-Apr-2010 Intent Maggie A Comments: both legs stat- left leg swelling- call wet read Spirometry (10263)By: Alexy KEBEDE, On: 12-Apr-2010 Intent Maggie Nathaniel Comments: good effort and curve normal B 12 Injection, 1000 mcg (J3420)By: On: 05-Apr-2010 Intent Maggie Tracey DO Ultrasound - GallbladderBy: Alexy KEBEDE, On: 01-Feb-2010 Intent Maggie A IV Needle placement (87434)By: On: 10-Jan-2010 Intent Ana Guzman Comments: IV 22 gauge inserted in right antecubital on first attempt and 0.9 NSS running without difficulty-AW INFUSION, NORMAL SALINE SOLUTION , On: 10-Jan-2010 Intent 1000 CC (Special Coverage Instructions Apply. See MCM: 2049) (J7030)By: Kimberley Loyd CNP THER/PROPH/DIAG INJ, SC/IM On: 10-Jan-2010 Intent (10931)By: Kimberley Loyd CNP Radiology - Knee - Right - Weight On: 03-Jan-2010 Intent BearingBy: Maggie Tracey DO EKG (76774)By: Raiza Ortiz On: 03-Jan-2010 Intent Comments: ekg showed normal sinus rhythym, left axis, no acute st/t wave changes Aerosol Treatment (06015)By: Ruthesa On: 19-Oct-2009 Intent IVAN Kimberley Poe Cartoid DopplerBy: Maggie Tracey DO On: 14-Jun-[address] - Brain/HeadBy: Maggie Tracey DO On: 06-Jun-2009 Intent MAMMOGRAM, SCREENING, BOTH BREASTS On: 06-Jun-2009 Intent (50994)By: Maggie Tracey DO DXA, BONE DENSITY, AXIAL SKELETON On: 06-Jun-2009 Intent ([id number])By: Maggie Tracey DO FLU VAC, SPLIT, >3 YEARS, INTRAMUSC On: 12-May-2009 Intent (37956)By: Maricruz Rivera LPN Comments: Lot #[id number]-left deltoidgiven by:[facility] ADMINISTRATION OF INFLUENZA VIRUS On: 12-May-2009 Intent VACCINE (G0008)By: Maricruz Rivera LPN Radiology - Hand - RightBy: Alexy KEBEDE, On: 26-Jan-2009 Intent Maggie Armstrong Radiology - Wrist - RightBy: Alexy On: 26-Jan-2009 Intent Maggie KEBEDE Comments: call wet read Pulse Oximetry (72127)By: Alexy KEBEDE, On: 27-Dec-2008 Intent Maggie Armstrong Comments: 98 Inhaler Demo (60023)By: Alexy KEBEDE, On: 27-Dec-2008 Intent Maggie A Spirometry (34980)By: Alexy KEBEDE, On: 27-Dec-2008 Intent Maggie A Comments: good effort and curve has small airways diminished Radiology - Chest- PA and LatBy: On: 27-Dec-2008 Intent Maggie Tracey DO Echo CompleteBy: Maggie Tracey DO On: 08-Nov-2008 Intent Comments: elevated bp - increase patricia EKG (34268)By: Maggie Tracey DO On: 08-Nov-2008 Intent Comments: ekg showed normal sinus rhythym, leftl axis, no acute st/t wave changes rsr unchanged Bio Z (22892)By: Alexy KEBEDE Maggie A On: 08-Nov-2008 Intent Inhaler Demo (03744)By: Melanie KEBEDE, On: 02-Sep-2008 Intent Doris Melanie DO, Doris Melanie DO, Doris Aerosol Treatment (30597)By: Melanie On: 02-Sep-2008 Intent Doris KEBEDE Melanie DO, Doris Comments: less echoey -- better less cough Doris Navarro DO EKG (69164)By: Doris Navarro DO On: 16-Dec-2007 Intent Melanie DO, Doris Melanie DO, Comments: NSR NO ACUTE CHANGES Doris B 12 Injection, 1000 mcg (J3420)By: On: 13-Nov-2007 Intent Thelma Khan LPN Comments: 1000mcg/ml 1 ml given im lt dltd lot [id number] exp 07-06. Pt tolerated well. B 12 Injection, 1000 mcg (J3420)By: On: 30-Jul-2007 Intent Doris Navarro DO Melanie DO, Doris Navarro DO, Doris EXCISION BGN LSN TRNK/ARM/LEG On: 09-Jul-2007 Intent 0.6-1.0 CM (54438)By: Kimberley Loyd CNP BIOPSY OF SKIN LESION, SINGLE On: 09-Jul-2007 Intent (37887)By: Kimberley Loyd CNP SHAVE SKIN LESION, TRUNK/ARM/LEG On: 02-Jul-2007 Intent (45978)By: Kimberley Loyd CNP BIOPSY OF SKIN LESION, SINGLE On: 02-Jul-2007 Intent (65742)By: Kimberley Loyd CNP B 12 Injection, 1000 mcg (J3420)By: On: 02-Jul-2007 Intent Lashonda Lee LPN FLU VAC, SPLIT, >3 YEARS, INTRAMUSC On: 04-Jun-2007 Intent (11757)By: Jing Cabello RN Comments: Lot #: [id number] date: 01/03Amount given: 0.5 MLRoute: IMSite given: Left deltoidGiven by: Nathaniel Beal LPN IMMUNIZ ADMNIN, 1 VAC, SNGL/COMBO On: 04-Jun-2007 Intent ([id number])By: Mast Jing ALBARRAN B 12 Injection, 1000 mcg (J3420)By: On: 04-Jun-2007 Intent Mast RNJing B 12 Injection, 1000 mcg (J3420)By: On: [...] given im lt deltoid lot [id number] exp B 12 Injection, 1000 mcg (J3420)By: On: 11-Feb-2007 Intent Raiza Ortiz Comments: Lot #:[id number] date:11/04Amount given:1mlRoute: IMSite given:leftGiven by: HAY Zavala B 12 Injection, 1000 mcg (J3420)By: On: 04-Feb-2007 Intent Lashonda Lee LPN B 12 Injection, 1000 mcg (J3420)By: On: 28-Jan-2007 Intent Melanie DO, Doris Melanie DO, Doris Navarro DO, Doris Ultrasound - GallbladderBy: Melanie On: 18-Oct-2006 Intent DODoris Melanie DO, Doris Melanie DO, Doris INFUSION, NORMAL SALINE SOLUTION , On: 18-Oct-2006 Intent 250 CC (Special Coverage Comments: GAVE 1 LITER Instructions Apply. See MCM: 2049) ([id number])By: Melanie DO, Doris Melanie DO, Doris Melanie DO, Doris IV Infusion ([id number])By: Melanie KEBEDE, On: 18-Oct-2006 Intent Doris Melanie DO, Doris Melanie DO, Doris EKG ([id number])By: Doris Navarro DO On: 10-Oct-2006 Intent Melanie DO, Doris Melanie DO, Comments: NSR T WAVE INVERSIONS V1-V3 Dorsi Planned Medications INFUSION, NORMAL SALINE SOLUTION , [...] 1000 MCG/ML Injection Solution Ordered: 04-May-2016 Pending Lam, Nurse Vitamin B-12 1000 MCG/ML Injection Solution [...] Pending Melanie DO, Doris Melanie DO, Doris Mleanie DO, Doris Vitamin B-12 1000 MCG/ML [...] 1000 MCG/ML Injection Solution Ordered: 10-May-2010 Pending SirlApoorva Vitamin B-12 1000 MCG/ML Injection Solution Ordered: [...] MCG/ML Injection Solution Ordered: 11-May-2011 Pending Miguel GILBERTN, Maricruz Vitamin B-12 1000 [...] 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 Other providers contributing to [...] 13 steps at home. 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 The patient has noticed [...] not home- no gerd - went to [facility] for artery checks and doing ok there- [...] has had some elevated bp's lately. [facility] dr increased her losartan End: 04-Sep-2012 23:07 to 100mg qd. Pt states anxiety seems to be better with adding wellbutrin.). Note for Follow up to discuss laboratory test results: she went back to [facility] Saw Dr Shruthi Quinones- ??head of [...] ER visit: note: (stroke she was at [facility] x 5days released on saturday05/22/12 to 05/27/12). The patient feels well with minor complaints, has decreased energy End: 29-May-2012 14:12 level and is sleeping well. Patient has been compliant with instructions. Current medication use: compliant with dosing regimen. Patient sleeps 7 hours per night. Nutrition: balanced diet and supplement al vitamins. [facility]: [facility] (434.91), Benign essential hypertension (401.1), Diabetes type II,controlled no comp (250.00), Hypothyroidism (244.9), Carotid stenosis (433.10) [facility] Office Visit On: 22-May-2012 10:33 Encounter Reason: Follow up hospital - Reason for ER visit: note: (TIA. ??Patient was seen by [facility] x 3 times last week and then sent to [facility] for psych eval.). 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
--- OUTSIDE RECORDS SUMMARY | 2018-10-18 12:23 | XMS RPT_ITS | Continuity of Care Document ---
:1940 Author Organization [facility] Address [address] [facility] [address] [place] [address] Phone Care Team Providers Name Role Phone Doris Navarro DO Unavailable Camacho Serrano Unavailable Flakito Morales Unavailable [facility] Unavailable Marcello Stein Unavailable Sal Urrutia Unavailable Maggie Tracey DO Unavailable Liza Duron Unavailable CARYN Khan Unavailable Unavailable Marcia Britton Unavailable Unavailable GAURAV Hinojosa Unavailable Unavailable Long Patsy RUBIN Unavailable Unavailable Unavailable Unavailable Problems Name Dates [...] artery stenosis (I65.23, 433.10) Comments: goes to [facility] yearly to follow Status: Active Bilateral [...] related to fatty liver -- did nutrition drapery counselor and wt loss / metformin and [...] depression ? anx and sstress? ekg in fred in ER ok no cp /for other [...] Active Pregnancies () Comments: 2 Status: Active Sciatica, unspecified laterality (M54.30, 724.3) Status: Active Screening for malignant neoplasm of [...] (two) Tablet bid for 30 days Quantity: 120 {Tablet} Refills: 3 Ordered:31-Jul-2018 Arnold Navarro DO, DO, KathleenFearon DO, Kathleen Start : 31-Jul-2018 Active Comments:new dose Citalopram Hydrobromide 40 MG Oral Tablet 1 Tablet qd for 30 days Quantity: 30 {Tablet} Refills: 3 Ordered:24-Jun-2018 Arnold Navarro DO, DO, KathleenFearon DO, Kathleen Start : 24-Jun-2018 Active Crestor 5 MG [...] KathleenFearon DO, Kathleen Start : 12-May-2018 Active Losartan Potassium 50 [...] Active TraMADol HCl 50 MG Oral Tablet 2 (two) Tablet bid prn pain for 0 days Quantity: 100 {Tablet} Refills: 0 Ordered:14-Aug-2018 Arnold Navarro DO, DO, KathleenFearon DO, Kathleen Start : 14-Aug-2018 Active Comments:one [id number] pulled 08/14/18 TraZODone HCl 100 MG Oral Tablet 1-1/2 [...] Start : 26-Sep-2016 End : 12-Dec-2017 Inactive [place] 5-325 MG Oral Tablet 1 q 4hrs [...] 3 days Take with food in AM PredniSONE 20 MG Oral Tablet 1 (one) Tablet bid for 2days then qd for 4days for 0 days Quantity: 8 {Tablet} Refills: 0 Ordered:30-Jul-2018 Thelma Khan LPN Start : 24-Jun-2018 End : 30-Jul-2018 Inactive PREVACID, 30MG (Oral Capsule Delayed Release) [...] : 07-Sep-2014 End : 13-Sep-2014 Discontinued ERGOCALCIFEROL, 68006TARA (Oral Capsule) 1 (one) Capsule q week [...] Quantity: 10 {Tablet} Refills: 0 Ordered:05-Jan-2013 Alexy KEBEDECameliaa A Start : 05-Jan-2013 End : 05-Jan-2013 Discontinued LIPITOR, 40MG (Oral Tablet) 1 Tablet QD for 0 days Refills: 0 Ordered:10-Jul-2007 Mai Montero Start : 10-Jul-2007 End : 10-Jul-2007 Discontinued LIPITOR, 40MG (Oral Tablet) 1 (one) Tablet q 3 days q hs for 90 days Quantity: 90 {Tablet} Refills: 3 Ordered:29-Sep-2012 Alexy KEBEDECamelianathaniel Armstrong Start : 29-Sep-2012 End : 29-Sep-2012 Discontinued L-METHYLFOLATE CALCIUM, 15MG (Oral Tablet) 1 (one) Tablet qd for 30 days Quantity: 30 {Tablet} Refills: 3 Ordered:19-Aug-2015 Raiza Ortiz Start : 06-Jan-2014 End : 19-Aug-2015 Discontinued MELOXICAM, 7.5MG (Oral Tablet) 1 (one) Tablet daily for 30 days Quantity: 30 {Tablet} Refills: 3 Ordered:09-Sep-2009 Alexy KEBEDECameliaa Nathaniel Start : 09-Sep-2009 End : 09-Sep-2009 Discontinued [...] End : 23-Jun-2012 Discontinued VITAMIN D (ERGOCALCIFEROL), 32691JOWK (Oral Capsule) 1 Capsule q week for 0 days Quantity: 12 {Capsule} Refills: 2 Ordered:19-Aug-2015 Raiza Ortiz Start : 07-Apr-2013 End : 19-Aug-2015 Discontinued VITAMIN D, 28566FMBU (Oral Capsule) 1 (one) Capsule q week [...] of 05-Dec-2015 Acute sinusitis, unspecified (J01.90, 461.9) 11-Fred-2012 Status: Resolved as of 05-Dec-2015 Allergic reaction [...] Removal) Completed Comments: 2009 Date Value Details 13-Aug-2018 Inital Evaluation (1) - PT Result: Comments: See Note; NOTES: [facility] Physical Therapy [facility] [address] [facility] [place] [address] / REHABILITATION SERVICES INITI GA EVALUATION MR#: [id number] Acct: [id number] Name: MARICRUZ GRIGSBY Rep #: [id number] : 1940 78 From: Karen Flores DPT Referring Dr.: Doris Navarro DO Status: REG RCR Insurance: [employer] S[employer] SELF PAY INSURANCE Patient's Visit Information MARICRUZ CRUZ is a 78 year old F referred to Physical Therapy by Doris Navarro DO with a diagnosis of Sciat ica. Date of Evaluation: 08/13/18 Physical Therapist: Karen Flores DPT - Visit Plan Frequency: 2x /Week Duration: 4 Weeks Plan: Females Only- focus on LE and core s/s- possible flexion based exerci se program - Subjective Findings: Patient reports that bother her legs have hurt her for over a year. Feels like her back and legs are tight and have not loosed up and feel tight. She fell down the bas ement steps about a year ago and that started her issues. Broke ribs on both sides in the fall. Feels that pain is getting better its just slow. Describes the pain as achy with ambulation. Best: 0/10 Ea ses: sitting Agg: standing, walking Worst: 5/10. Pain is lcoated in the buttocks and travels to the knees. No N/T in the toes. Has a history fo back problems- had therapy- on/off her whole life. No surg eries or injections in the back. Is not very active- feels no desire to do anything due to the pain in her legs. Sleep: not disturbed. Has had recent x-rays on the back. PMXh:HTN, DM, Cancer Meds: see l ist - Objective POSTURE: FH, RS, Increased kyphosis- does not correct with verbal or tacile cueing PALPATION: Tender along gluts bilaterally. Sensation/Reflexes: WNL. HR/TR: able with UE A from wall- e qual bilaterally. SLS: WS but unable to SLS. ROM: Lumbar- Flexion- hands to mid tijerina,Extn: very little from lumbar spine SB mod loss bilat, rotation mod loss bilat Hip/Knee Ankle: WNL. Flexibility: HS: moderate restriction bilaterally. MMT: RLE- ankle 5/5 throughout; knee- ext 4+/5, flexion 4/5; hip- flexion 4-/5 in SLR, abd 4/5, ext 4/5. LLE-ankle 5/5 throughout; knee- ext 4+/5, flexion 4/5; hip- fle xion 4-/5 with SLR, abd 4/5, ext 4/5. [...] Time Frame: 4-6 Weeks Goal 4:: Patient reginald l maintain proper posture t/o tx session to demo increased core s/s. Goal Time Frame: 4-6 Weeks - Rehabilitation Potential Physical Therapy Diagnosis: Patient presents with hypomobility- she has decrea sed strength, flex and muscular endurance leading abnormal gait and increased pain with ADL's. Rehabilitation Potential: Fair - Anticipated Interventions Patient/Client Instruction: Educate patient on: Benefits of Fitness Program Therapeutic Exercise to Include: Strength training, Endurance training, Balance training, Body mechanics, Postural training, Flexibilty training, Gait and locomotor training , Dynamic Lumbar Stabilization For the Purpose of:: To improve muscle performance and motor function TENS: Yes Cryotherapy (ice pack, ice massage): Yes Thermo therapy (hot pack): Yes Ultrasound (thermal /non thermal): Yes For the Purpose of:: To decrease pain Thank you for the opportunity to evaluate your patient. For Medicare and Medicare HMO plans, please review the plan of care and approve it. It will need to be FAXED BACK to us at [phone] for Medicare purposes. For Medicare only, by signing this I certify the plan of care. Please let me know if there are questions or concerns regarding this plan of care. Physician Signature: Date: <Electronically signed by Karen GODWINT> 08/13/18 4820 CC: Doris Navarro DO ELR Signed 13-Aug-2018 Inital Evaluation (1) - PT Result: Comments: See Note; NOTES: [facility] Therapy [facility] [address] [place] [address] [address] [place] [address] / REHABILITATION SERVICES INITI GA EVALUATION MR#: [id number] Acct: [id number] Name: MARICRUZ GRIGSBY Rep #: [id number] : 1940 78 From: Karen Flores DPT Referring Dr.: Doris Navarro DO Status: REG RCR Insurance: [employer] MED[employer]ARE S[employer] SELF PAY INSURANCE Patient's Visit Information MARICRUZ L JOSE AHOMERO FABYFADUMO is a 78 year old F referred to Physical Therapy by Doris Navarro DO with a diagnosis of Sciat ica. Date of Evaluation: 08/13/18 Physical Therapist: Karen Flores DPT - Visit Plan Frequency: 2x /Week Duration: 4 Weeks Plan: Females Only- focus on LE and core s/s- possible flexion based exerci se program - Subjective Findings: Patient reports that bother her legs have hurt her for over a year. Feels like her back and legs are tight and have not loosed up and feel tight. She fell down the bas ement steps about a year ago and that started her issues. Broke ribs on both sides in the fall. Feels that pain is getting better its just slow. Describes the pain as achy with ambulation. Best: 0/10 Ea ses: sitting Agg: standing, walking Worst: 5/10. Pain is lcoated in the buttocks and travels to the knees. No N/T in the toes. Has a history fo back problems- had therapy- on/off her whole life. No surg eries or injections in the back. Is not very active- feels no desire to do anything due to the pain in her legs. Sleep: not disturbed. Has had recent x-rays on the back. PMXh:HTN, DM, Cancer Meds: see l ist - Objective POSTURE: FH, RS, Increased kyphosis- does not correct with verbal or tacile cueing PALPATION: Tender along gluts bilaterally. Sensation/Reflexes: WNL. HR/TR: able with UE A from wall- e qual bilaterally. SLS: WS but unable to SLS. ROM: Lumbar- Flexion- hands to mid tijerina,Extn: very little from lumbar spine SB mod loss bilat, rotation mod loss bilat Hip/Knee Ankle: WNL. Flexibility: HS: moderate restriction bilaterally. MMT: RLE- ankle 5/5 throughout; knee- ext 4+/5, flexion 4/5; hip- flexion 4-/5 in SLR, abd 4/5, ext 4/5. LLE-ankle 5/5 throughout; knee- ext 4+/5, flexion 4/5; hip- fle xion 4-/5 with SLR, abd 4/5, ext 4/5. [...] Time Frame: 4-6 Weeks Goal 4:: Patient reginald l maintain proper posture t/o tx session to demo increased core s/s. Goal Time Frame: 4-6 Weeks - Rehabilitation Potential Physical Therapy Diagnosis: Patient presents with hypomobility- she has decrea sed strength, flex and muscular endurance leading abnormal gait and increased pain with ADL's. Rehabilitation Potential: Fair - Anticipated Interventions Patient/Client Instruction: Educate patient on: Benefits of Fitness Program Therapeutic Exercise to Include: Strength training, Endurance training, Balance training, Body mechanics, Postural training, Flexibilty training, Gait and locomotor training , Dynamic Lumbar Stabilization For the Purpose of:: To improve muscle performance and motor function TENS: Yes Cryotherapy (ice pack, ice massage): Yes Thermo therapy (hot pack): Yes Ultrasound (thermal /non thermal): Yes For the Purpose of:: To decrease pain Thank you for the opportunity to evaluate your patient. For Medicare and Medicare HMO plans, please review the plan of care and approve it. It will need to be FAXED BACK to us at [phone] for Medicare purposes. For Medicare only, by signing this I certify the plan of care. Please let me know if there are questions or concerns regarding this plan of care. Physician Signature: Date: <Electronically signed by Karen Flores DPT> 08/13/18 1548 CC: Doris Navarro DO ELR Signed 31-Jul-2018 Inital Evaluation (1) - PT Result: Comments: See Note; NOTES: [facility] Physical Therapy [facility] [address] [place] [address]. [address] [place] [address] / REHABILITATION SERVICES INITI AL EVALUATION MR#: [id number] Acct: [id number] Name: MARICRUZ GRIGSBY Rep #: [id number] : 1940 78 From: Eugenio GODWINT Referring Dr.: Doris Navarro DO Status: REG RCR Insurance: MEDICARE PART A B SELF PAY INSURANCE Patient's Visit Information MARICRUZ CRUZ is a 78 year old F referred to Physical Therapy by Doris Navarro DO with a diagnosis of Bilateral sciatica . Date of Evaluation: 06/27/18 Physical Therapist: Eugenio Correa DPT - Visit Plan Frequency: 2x /Week Duration: 4 Weeks Plan: Start with flexion based exercises, may use US to reduce symptoms. Inclu de light TA contraction exercises as tolerated. I mentioned aquatic therapy to patient, but was not interested at this point in time. - Subjective Findings: Pt. is here today for her initial evaluation with diagnosis of Bilateral sciatica. Pt. reports having increased pain for 5-6 weeks now, go down both of her legs. Pt. reports increased pain with standing, decreased pain with sitting. Pt. describe s pain at lumbar spine and going down [...] and household activities without limitations. - Pain Lum bar spine Pain Intensity (Out of 10): 4 Pain Intensity Range: 2, 8 - Objective POSTURE: Pt. has flexed posture. Rounded shoulders, FH posture. Pt. has equal ilaic crest heights, no marked lateral shift . PALPATION: Pt. has increased tenderness along lumbar spine and into gluteal region. Mild increase in symptoms with spring testing in SL to L2-L5, hypomobility noted throughout. NEURO: normal sensation , normal DTR of bilateral LEs. Pt. is able to rise on heels and toes, but did require balance aide to complete. ROM: Flexion- min/mod loss NE, ext max loss increase NW, SB mod loss bilat increase NW neeta aterally, rotation mod loss bilat increase NW. Pt. [...] onto things marcos, and PT to stabilize. S he is able to ambulate without but reports that she preferes. I mention use of AD, but pt. declined. STAIRS: Pt. is able to neogotiate with step to pattern and heavy use of 2 HR, increase NW. - Goals G oal 1:: Pt. to be with HEP. Goal Time Frame: 4-6 Weeks Goal 2:: Pt. to have increased lumbar ROM withtout increase in symptoms by 25% throughout. Goal Time Frame: 4- 6 Weeks Goal 3:: Pt. to walk without [...] lifestyle which allow for less postive outcome. Pt . would benefit from PT to increase her strength, ROM and decrease her symptoms. Rehabilitation Potential: Fair - Anticipated Interventions Patient/Client Instruction: Educate patient on: Condition, Pl an of Care, Risk Factors, Benefits of Fitness Program For the Purpose of:: To improve decision making, To facilitate caregiver knowledge, To improve self management, To prevent re-injury, To improve daniel lity to perform tasks related to life management, To improve tolerance to ADL's Therapeutic Exercise to Include: Strength training, Power training, Endurance training, Postural training, Flexibilty evy yaniv, Passive ROM, Active ROM, Dynamic Lumbar Stabilization For the Purpose of:: To decrease pain, To decrease swelling/inflammation, To increase ROM, To improve nutrient delivery to tissue, To increase oxygenation perfusion, To improve muscle performance and motor function, To improve ability to perform ADL's, To improve gait and locomotor functions, To improve health of tissue, To decrease soft tiss ue restriction, To increase flexibility/ROM Manual Therapy Techniques to Include: Mobilization, Functional dry needling, Soft tissue mobilization For the Purpose of:: To decrease pain, To decrease swell ing/inflammation, To increase ROM, To improve nutrient delivery to tissue IF ES: Yes Cryotherapy (ice pack, ice massage): Yes Thermo therapy (hot pack): Yes Ultrasound (thermal/non thermal): Yes For the Purpose of:: To decrease pain, To decrease swelling/inflammation, To increase ROM, To improve nutrient delivery to tissue Thank you for the opportunity to evaluate your patient. For Medicare and [facility] plans, please review the plan of care and approve it. It will need to be FAXED BACK to us at [phone] for Medicare purposes. For Medicare only, by signing this I certify the plan of care . Please let me know if there are questions or concerns regarding this plan of care. Physician Signature: Date: <Electronically s igned by Eugenio Correa DPT> 07/31/18 1457 CC: Doris Navarro DO CLS Signed 16-Jul-2018 Discharge Instruction Result: Comments: See Note; NOTES: [facility] Medical Records Department [address] [place] [address] Discharge Instruction 07/16/18 1405 MR#: [id number] Acct: [id number] Name: MARICRUZ GRIGSBY Rep #: [id number] : 1940 78 From: Johnnie Baez MD [...] Primary Care Pro vider. Call Doctors Registry ([phone]) or report to the closest Emergency Room. Call 911 if necessary. 07/16/18 1647 <Electronically signed by Johnnie Baez MD> Date Johnnie Baez MD Cosigner Signature (If Indicated): Date CC: Doris Navarro DO 16-Jul-2018 Emergency Department Summary Result: Comments: See Note; NOTES: [facility] Medical Records Department [address] [place] [address] Emergency Department Summary 07/16/18 1249 MR#: [id number] Acct: [id number] Name: CLIFFORD CRUZMARICRUZ L Rep #: [id number] : 1940 78 From: Johnnie Baez MD PCP: Doris Navarro DO Status: DEP ER - ER Visit Summary Date of Service: 07/16/18 Chief Complaint: Nausea, vomit ing and diarrhea. History of Present Illness: The patient is a 78 F past medical history of prior stroke, hypertension kal-markstj-jfhtwhnbv diabetes. Patient states last 3-4 days she [...] secondary to viral gastroenteritis History of no q-ycivjno-wjotdaqzk diabetes. This note was generated with [employer] dictation software. It may contain incorrect words, spelling, and punctuation that were not noted in review of the chart prior to [facility] ED Disposition - Plan for ED Patient: Chief Complaint: Nausea/Vomiting/Diarrhea Referrals: Doris Naavrro, DO [Primary Care Provider] - What to do if you have Problems For any increased christy n, shortness of breath, bleeding, nausea or vomiting, chest pain, or any unexpected problems, contact your Primary Care Provider. Call [facility] ([phone]) or report to the closest Emergency Room. Call 911 if necessary. 07/16/18 2897 <Electronically signed by Johnnie Baez MD> Date Johnnie Baez MD Cosigner Signature ( If Indicated): Date CC: Doris Navarro DO 24-Jun-2018 L/S Spine Min 4 Views Result: Comments: See Note; NOTES: [facility] Imaging Services [address] [place] [address] L/S Spine Min 4 Views MR#: [id number] Acct: [id number] Name: MARICRUZ GRIGSBY Rep # : [id number] : 1940 F 78 From: Mack Soni MD PCP: Doris Navarro DO Status: REG CLI Study: L/S Spine Min 4 Views Date of Exam: 06/24/18 Exam# [id number] Ordering Dr: Doris Navarro DO SANDI DY: [...] Service support , CC: Doris Navarro DO Fishing Hand: Signed 14-May-2018 Emergency Department Summary Result: Comments: See Note; NOTES: [facility] Medical Records Department [address] [place] [address] Emergency Department Summary 05/14/18 0908 MR#: [id number] Acct: [id number] Name: MARICRUZ GRIGSBY Rep #: [id number] : 1940 78 From: Zee Denise MD [...] family doctors she is re ferred to [facility] for the shoulder injury and she will return for change in symptoms and she is comfortable with this plan Treatment Plan: [] Disposition: [] Stable home Impression: [] Fall left rib fracture, left shoulder injury This note was generated with [employer] software. It may contain incorrect words, spelling, [...] your Primary Care Provider. Call [facility] ([phone]) or report to the closest Emergency Room. Call 911 if necessary. 05/14/18 1530 <Electronically signed by Zee Denise MD> Date Zee Soriaignjoseph Signjessicaur e (If Indicated): Date CC: Doris Navarro DO 14-May-2018 Discharge Instruction Result: Comments: See Note; NOTES: [facility] Medical Records Department [address] [facility] [place] [address] Discharge Instruction 05/14/18 1133 MR#: [id number] Acct: [id number] Name: MARICRUZ GRIGSBY Rep #: [id number] : 1940 78 From: Zee Denise MD PCP: Doris Navarro DO Status: REG ER ED Disposition - Plan for ED Patient: Chief Complaint: Fall Instructions: ED M echanical Fall, ED Fx Rib, ED Sprain Shoulder, ED Sling Prescriptions: Hydrocodone Bitart/Apap 5-325 [[place] 5MG-325MG] 1 tab PO Q6H PRN PRN 3 Days #10 tab PRN Reason: Pain Referrals: Doris Navarro, [Primary Care Provider] - What to do if you have Problems For any increased pain, shortness of breath, bleeding, nausea or vomiting, chest pain, or any unexpected problems, contact your Primary Car e Provider. Call [facility] ([phone]) or report to the closest Emergency Room. Call 911 if necessary. 05/14/18 1134 <Electronically signed by Zee Denise MD> Date ___ Zee Denise MD Cosigner Signature (If Indicated): Date CC: Doris Navarro DO 14-May-2018 Chest PA and Lateral Result: Comments: See Note; NOTES: [facility] Imaging Services [address] [place] [address] Chest PA and Lateral MR#: [id number] Acct: [id number] Name: CLIFFORD CRUZMARICRUZ Stuart Rep #: [id number] : 1940 F 78 From: Teo Wayne MD PCP: Doris Navarro DO Status: REG ER Study: Chest PA and Lateral Date of Exam: 05/14/18 Exam# [id number] Ordering Dr: Zee Denise MD STUDY: X-RAY CHEST REASON FOR EXAM: Female, 78 years old. Left-sided rib pain following a fall. TECHNIQUE: PA and lateral views of the chest. COMPARISON: Comparison is made with prior study dated J mely 12, 2018. FINDINGS: Stable elevation of the right [...] Teo Wayne MD at 10:11 EDT Tel [phone], [employer] support , CC: MD Sonam Denise; Doris Navarro DO Fishing Hand: Signed 14-May-2018 Elbow min 3 Views Result: Comments: See Note; NOTES: [facility] Imaging Services [address] [place] [address] Elbow min 3 Views MR#: [id number] Acct: [id number] Name: MARICRUZ GRIGSBY Rep #: [id number] : 1940 F 78 From: Teo Wayne MD PCP: Doris Navarro DO Status: REG ER Study: Elbow min 3 Views Date of Exam: 05/14/18 Exam# [id number] Ordering Dr: Zee Denise MD STUD Y: [...] Teo Wayne MD at 10:12 EDT Tel [phone], Service support , CC: MD Sonam Denise; Doris Navarro DO Fishing Hand: Signed 14-May-2018 Shoulder min 2 Views Result: Comments: See Note; NOTES: [facility] Imaging Services [address] [place] [address] Shoulder min 2 Views MR#: [id number] Acct: [id number] Name: CLIFFORD CRUZMARICRUZ Stuart Rep #: [id number] : 1940 F 78 From: Teo Wayne MD PCP: Doris Navarro DO Status: [facility] ER Study: Shoulder min 2 Views Date of Exam: 05/14/18 Exam# [id number] Ordering Dr: Zee Denise MD STUDY: X-RAY [...] Wayne MD at 11:02 EDT Tel [phone], Service support , CC: MD Sonam Denise; Doris Navarro DO Fishing Hand: Signed 06-Feb-2018 History and Physical Exam Result: Comments: See Note; NOTES: [facility] Medical Records Department [address] [place] [address] History and Physical 02/06/182050 MR#: [id number] Acct: [id number] Name: MARICRUZ GRIGSBY Rep #: [id number] : 1940 77 From: María Barnes MD [...] cholecystectomy Psychiatric History: No pertinent psych hx 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 Old lacunar infarct of the mid karleen. Incidental sinus findings as above. Electronically Signed: [...] Subcu heparin. This note was generated with [employer] software. It may contain incorrect words, spelling, and punctuation that were not noted in checking the note before signing. Code Visit RUBEN VALDES: 16679 Initial observation care L3 8 2108 <Electronically signed by María Barnes MD> Date María Barnes MD Cosigner Signature: Date (if applicable) CC: María Barnes; Doris Navarro DO Signed 06-Feb-2018 Brain/Head without Contrast Result: Comments: See Note; NOTES: [facility] Imaging Services [address] [place] [address] Brain/Head without Contrast MR#: [id number] Acct: [id number] Name: MARICRUZ GRIGSBY Rep #: [id number] : 1940 F 77 From: Renata Lee MD PCP: Doris Navarro DO Status: [facility] Study: Brain/Head without Contrast Date of Exam: 02/06/18 Exam# [id number] Ordering Dr: Caemron Marte MD STUDY: CT BRAIN WITHOUT CONTRAST [...] , CC: Doris Navarro DO; Jered Marte Fishing Hand: Signed 06-Feb-2018 Chest 1 View Result: Comments: See Note; NOTES: [facility] Imaging Services [address] [place] [address] Chest 1 View MR#: [id number] Acct: [id number] Name: MARICRUZ GRIGSBY Rep #: [id number] : 1940 F 77 From: Renata Lee MD PCP: Doris Navarro DO Status: REG ER Study: Chest 1 View Date of Exam: 02/06/18 Exam# [id number] Ordering Dr: Jered Marte MD STUDY: X-RAY CHEST R JAAMAL FOR EXAM: Female, 77 years old. Headache [...] , CC: Doris Navarro DO; Jered Marte Fishing Hand: Signed 25-Nov-2017 Liver Result: Comments: See Note; NOTES: [facility] Imaging Services [address] [place] [address] Liver MR#: [id number] Acct: [id number] Name: MARICRUZ GRIGSBY Rep #: [id number] : 1940 F 77 From: Mack Hand MD PCP: Doris Navarro DO Status: REG CLI Study: Liver Date of Exam: 11/25/17 Exam# [id number] Ordering Dr: Doris Navarro DO STUDY: ABDOMINAL [...] MD at 12:34 EDT , Service support [phone], CC: Doris Navarro DO Fishing Hand: Signed 29-Oct-2017 Hip 2-3 Views with Pelvis Result: Comments: See Note; NOTES: [facility] Imaging Services [address] [place] [address] 75986 Hip 2-3 Views with Pelvis MR#: [id number] Acct: [id number] Name: MARICRUZ GRIGSBY ep #: [id number] : 1940 F 77 From: Benji Finch PCP: Doris Navarro DO Status: REG CLI Study: Hip 2-3 Views with Pelvis Date of Exam: 10/29/17 Exam# [id number] Ordering Dr: Thelma Sofia CLOD PULLER- C STUDY: X-RAY - PELVIS AND LEFT [...] , CC: QUINN Sofia; Doris Navarro DO Fishing Hand: Signed 27-Aug-2017 12 Lead Electrocardiogram Result: Comments: See Note; NOTES: [facility] Cardiovascular Services [address] [place] [address] 12 Lead EKG 08/24/17 1719 MR#: [id number] Acct: [id number] Name: PORTIA GRIGSBY Stuart Rep #: [id number] : 1940 77 From: Maurilio Meraz MD [...] ECG C onfirmed by SOLEDAD STREETER, MAURILIO ([id number]), supervising editor news reel STACY CARTER (56) on 08/27/2017 10:37:34 AM Referred By: EITAN Confirmed By:MAURILIO MERAZ MD 08/27/17 1037 Date Maurilio Meraz MD CC: Doris Navarro DO Signed 25-Aug-2017 Emergency Department Summary Result: Comments: See Note; NOTES: [facility] Medical Records Department [address] [place] [address] Emergency Department Summary 08/24/17 1709 MR#: [id number] Acct: [id number] Name: MARICRUZ GRIGSBY Rep #: [id number] : 1940 77 From: Zee Denise MD [...] be altered This note was generated with [employer] dictation software. It may contain incorrect words, [...] your Primary Care Provider. Call [facility] ([phone]) or report to the closest Emergency Room. Call 911 if necessary. 08/25/17 0001 <Electronically sig radha by Zee Denise MD> Date Zee Denise MD Cosigner Signature (If Indicated): Date CC: Doris Salazaron 24-Aug-2017 Discharge Instruction Result: Comments: See Note; NOTES: [facility] Medical Records Department [address] [place] [address] Discharge Instruction 08/24/171819 MR#: [id number] Acct: [id number] Name: MARICRUZ GRIGSBY Rep #: [id number] : 1940 77 From: Zee Denise MD PCP: Doris Navarro DO Status: REG ER ED Disposition - Plan for ED Patient: Chief Complaint: Shortness of Breath Ins tructions: ED Reactive Airway Disease, ED Bronchitis Asthmatic, ED Upper Resp Infec No Abx Tx Referrals: Doris Navarro, [Primary Care Provider] - What to do if you have Problems For any increas ed pain, shortness of breath, bleeding, nausea or vomiting, chest pain, or any unexpected problems, contact your Primary Care Provider. Call [facility] ([phone]) or report to the closest [facility] Room. Call 911 if necessary. 08/24/171820 <Electronically signed by Zee Denise MD> Date Zee Denise MD Cosign er Signature (If Indicated): Date CC: Doris Melanie KEBEDE 24-Aug-2017 Chest PA and Lateral Result: Comments: See Note; NOTES: [facility] Imaging Services [address] [place] [address] Chest PA and Lateral MR#: [id number] Acct: [id number] Name: MARICRUZ GRIGSBY Stuart Rep #: [id number] : 1940 F 77 From: Stacy Tapia MD PCP: Doris Navarro DO Status: REG ER Study: Chest PA and Lateral Date of Exam: 08/24/17 Exam# [id number] Ordering Dr: Zee Denise MD XR Chest [...] CC: MD Sonam Denise; Doris Navarro DO Fishing Hand: Signed 07-Aug-2017 Chest PA and Lateral Result: Comments: See Note; NOTES: [facility] Imaging Services [address] [place] [address] 37222 Chest PA and Lateral MR#: [id number] Acct: [id number] Name: MARICRUZ GRIGSBY Rep #: [id number] : 1940 F 77 From: Teo Wayne MD PCP: Doris Navarro DO Status: REG CLI Study: Chest PA and Lateral Date of Exam: 08/07/17 Exam# [id number] Ordering Dr: Doris Navarro DO STUDY: X-RAY [...] Logan i, MD at 13:49 EST Tel [phone], Service support , CC: Doris Navarro DO Fishing Hand: Signed 20-Nov-2016 Operative Report Result: Comments: See Note; NOTES: [facility] Medical Records Department [address] [place] [address]696 Operative Report 11/14/16 0736 MR#: [id number] Acct: [id number] Name: CLIFFORD HOBBS FADUMOMARICRUZ Rep #: [id number] : 1940 76 From: Liza Duron DO PCP: Doris Navarro DO Status: [facility] [place] [facility] Report of Operation Date of Procedure: 11/14/16 Pre-Operative Diagnosi s: Right third and fourth trigger fingers Post-Operative Diagnosis: Name Surgery/Procedure Performed:: Right hand third and fourth A1 shannan release Type of Anesthesia:: Block,C[place]cent [place] Anesthesiologist: Fox Michaels Estimated Blood Loss (mL): [...] right arm was prepped and draped after Crescent [place] block was initiated. We markdedra posey out [...] Dragon disclaimer This note was generated with [employer] dictation software. It may contain incorrect words, spellin g, and punctuation that were not noted in checking the note before signing. 11/20/16 1231 <Electronically signed by Liza Duron DO> Date Liza Duron DO CC: Liza Duron DO; Doris Navarro DO Signed 16-Nov-2016 Oncology Progress Note Result: Comments: See Note; NOTES: [facility] Medical Records Department [address] [place] [address] Oncology Progress Note MR#: [id number] Acct: [id number] Name: PORTIA GRIGSBY Rep #: [id number] : 1940 76 From: Sal Urrutia MD [...] level. Sal Urrutia MD T: NTS JOB: [id number] 11/16/16 0850 <Electronically signed by Sal Urrutia MD> Date Sal Urrutia MD Cosigner Signature (If Indicated): Date CC: Date Dictated: 11/08/16 1305 Date Transcribed: 11/08/16 1305 Fishing Hand: Signed 14-Nov-2016 Discharge Instruction Result: Comments: See Note; NOTES: [facility] Medical Records Department [address] [place] [address] Instructions for Home/Discharge Instructions 11/14/16 0735 MR#: [id number] Acct: [id number] Name: MARICRUZ GRIGSBY Rep #: [id number] : 1940 76 From: Liza Duron DO [...] mg PO DAILY 11/09/16 Hydrocodone Bitart/Apap 5-325 [[place] 5MG- 325MG] 1 - 2 tablet PO Q6H PRN PRN #20 tablet 11/14/16 The following prescriptions were given: Hydrocodone Bitart/Apap 5- 325 [[place] 5MG-325MG] 1 - 2 tablet PO Q6H PRN PRN #20 tablet PRN Reason: Pain Primary Care Physician: Doris Navarro DO [Primary Care Provider] - Please Follow Up With: Liza Duron - [phone] 11/14/16 0736 <Electronically signed by Liza Duron DO> Date Liza Duron DO CC: Doris Navarro DO 20-Jul-2016 Chest PA and Lateral Result: Comments: See Note; NOTES: [facility] Imaging Services [address] [place] [address] Verdana 4d Chest PA and Lateral MR#: [id number] Acct: [id number] Name: JAQUAN GRIGSBY Rep #: [id number] : 1940 F 76 From: Mack Hand MD PCP: Doris Navarro DO Status: REG CLI Study: Chest PA and Lateral Date of Exam: 07/20/16 Exam# [id number] Ordering Dr: Doris Navarro DO STUDY: X-RAY [...] at 12:24 EST Tel , Service support [phone], CC: Doris Navarro DO Fishing Hand: Signed 26-Jan-2016 Echocardiogram Complete Result: Comments: See Note; NOTES: [facility] Cardiovascular Services [address] [place] [address] Echo Complete 01/26/16 1008 MR#: [id number] Acct: [id number] Name: MARICRUZ PARMAR Rep #: [id number] : 1940 75 From: Mack Dickerson MD [...] DO Date Dictated: 01/26/16 1008 Date Transcribed: 01/26/16 1612 Fishing Hand: Signed 05-Dec-2015 Chest 1 View (Portable) Result: Comments: See Note; NOTES: [facility] Imaging Services [address] [place] [address] Verdana 4d Chest 1 View (Portable) MR#: [id number] Acct: [id number] Name: MARICRUZ PEÑALOZA Rep #: [id number] : 1940 F 75 From: Yari Garcia MD PCP: Maggie Tracey DO Status: PRE ER Study: Chest 1 View (Portable) Date of Exam: 12/05/15 Exam# [id number] Ordering Dr: Johnnie Baez MD STUDY: X-RAY [...] at 16:44 EDT Tel , Service support [phone], RAD/Chest 1 V iew (Portable) IMPRESSION: Underexpansion of the lungs. Mild to moderate cardiomegaly. Electronically Signed: Yari Garcia MD at 16:44 EDT Tel , Service support [phone], CC: Maggie Tracey DO; Johnnie Baez MD Fishing Hand: Signed 05-Dec-2015 Spirometry (38638) Comments: good effort and curvenormal Result: 05-Dec-2015 EKG (07528) Comments: ekg showed normal sinus rhythym, normal axis, no acute st/t wave changes Result: [MEASUREMENTS ANALYSIS] Date of Test: 12/05/2015 14:27:41; Heart Rate: 93; WA Interval: 202; QRS: 96; QT Interval: 352; Corrected QT Interval (QTc): 409; P Wave [place]: 48; QRS Wave [place]: -26; T Wave [place] : 55; Blood Pressure: 134/64 [ECG DIAGNOSTIC STATEMENTS] Date of Test: 12/05/2015 14:27:41; Summary: Sinus Rhythm WITHIN NORMAL LIMITS 21-Sep-2015 12 Lead Electrocardiogram Result: Comments: See Note; NOTES: [facility] Cardiovascular Services [address] [place] [address] 12 Lead EKG 09/19/15 0908 MR#: [id number] Acct: [id number] Name: MARICRUZ VIGIL Rep #: [id number] : 1940 75 From: Maurilio Meraz MD [...] wave progression Confirmed by SOLEDAD STREETER, MAURILIO ([id number]), supervising editor news reel STACY CARTER (56) on 09/21/2015 11:27:40 AM Referred By: JE Confirmed By:MAURILIO MERAZ MD 1127 Date Maurilio Meraz MD CC: Maggie Tracey DO Date Dictated: 09/19/15907 Date Transcribed: 09/19/15907 Fishing Hand: Signed 19-Sep-2015 Discharge Instruction Result: Comments: See Note; NOTES: [facility] Medical Records Department [address] [place] [address] Discharge Instruction 09/19/15 1020 MR#: [id number] Acct: [id number] Name: MARICRUZ GRIGSBY Rep #: [id number] : 1940 75 From: Johnnie Baez MD [...] chest pain, or any unexpected problems, contact [facility] doctor. Call [facility] ([phone]) or report to the closest Emergency Room. Call 911 if necessary. 09/19/15 8185 <Electronically signed by Johnnie Baez MD> Date __ Johnnie Baez MD Cosigner Signature (If Indicated): Date CC: Maggie Tracey DO 19-Sep-2015 Emergency Department Summary Result: Comments: See Note; NOTES: [facility] Medical Records Department [address] [place] [address] Emergency Department Summary MR#: [id number] Acct: [id number] Name: MARICRUZ GRIGSBY Rep #: [id number] : 1940 75 From: Johnnie Baez MD [...] Marcelle Cardona C: Maggie Tracey DO T: NTS JOB: [id number] 09/19/15 3421 <Electronically signed by Johnnie Baez MD& amp;#62; Date Johnnie Kowalski Signature (If Indicated): Date CC: Maggie Tracey DO Date Dictated: 09/19/15 1019 Date Transcribed: 09/19/15 1019 Fishing Hand: Signed 07-Sep-2015 Chest PA and Lateral Result: Comments: See Note; NOTES: [facility] Imaging Services [address] [place] [address] 14676 Verdana 4d Chest PA and Lateral MR#: [id number] Acct: [id number] Name: MARICRUZ HADLEY Rep #: [id number] : 1940 F 75 From: Kali Raymundo MD PCP: Maggie Tracey DO Status: REG CLI Study: Chest PA and Lateral Date of Exam: 09/07/15 Exam# [id number] Ordering Dr: Maggie Irwin DO STUDY: X-RAY [...] FACR at 11:41 EST , Service support [phone], RAD/Chest PA and Lateral IMPRESSION: No significant changes. Stable moderate cardiomegaly. Bilateral interstitial changes more prominent on the right. Wanda marcus Signed: Kali Raymundo MD, FACR at 11:41 EST , Service support [phone], CC: Maggie Tracey DO Fishing Hand: Signed 07-Sep-2015 Spirometry (97215) Comments: good effort and curve normal Result: 24-Mar-2015 PT Discharge Summary Result: Comments: See Note; NOTES: [facility] Physical Therapy [facility] [address] [place] [address] Fax REHABILITATION SERVICES DISCHARGE SUMMARY MR#: [id number] Acct: [id number] Name: MARICRUZ GRIGSBY Rep #: [id number] : 1940 75 From: Yuni Clark Referring [...] discharge. Yuni Clark, PT T: NTS JOB: [id number] <Electronically signed by Yuni Clark > 03/24/15 1227 CC: Maggie Tracey DO Signed 17-Feb-2015 Inital Evaluation - PT Result: Comments: See Note; NOTES: [facility] Physical Therapy [facility] [address] [place] [address] Fax REHABILITATION SERVICES INITIAL EVALUATION MR#: [id number] Acct: [id number] Name: MARICRUZ GRIGSBY Rep #: [id number] : 1940 75 From: Yuni Clark Referring Dr.: Maggie Tracey DO Status: REG RCR Insurance : MEDICARE PART A B Eval Date: [facility] DATE OF SERVICE: 02/16/2015 SUBJECTIVE: This [...] care. Yuni Clark, PT T: NTS JOB: [id number] <Electronically signed by Yuni Clark > 02/17/15 1011 CC: Signed For Medicare only, by seng yao this I certify the plan of care. Physicians Signature Date 08-Feb-2015 L/S Spine Min 4 Views Result: Comments: See Note; NOTES: [facility] Imaging Services [address] [place] [address] Radiology Report MR#: [id number] Acct: [id number] Name: MARICRUZ GRIGSBY Rep #: [id number] : 1940 F 74 From: Teo Wayne MD PCP: Maggie Tracey DO Status: REG CLI Study: L/S Spine Min 4 Views Date of Exam: 02/08/15 Exam# [id number] Ordering Dr: Maggie Tracey DO STUDY: X-RAY [...] Wayne MD a t 12:30 EDT Tel [phone], Service support [phone], RAD/L/S Spine Min 4 Views IMPRESSION: Degenerative changes of the spine, as detailed above. Electro nically Signed: Teo Wayne MD at 12:30 EDT Tel [phone], Service support [phone], CC: Maggie Tracey DO Fishing Hand: Signed 15-Nov-2014 Thyroid Result: Comments: See Note; NOTES: [facility] Imaging Services [address] [place] [address] Ultrasound Report MR#: [id number] Acct: [id number] Name: MARICRUZ GRIGSBY Rep #: [id number] : 1940 F 74 From: Julián Trivedi DO PCP: Maggie Tracey DO Status: REG CLI Study: Thyroid Date of Exam: 11/15/14 Exam# [id number] Ordering Dr: Maggie Tracey DO STUDY: THYROID [...] Julián Trivedi DO at 16:51 EDT Tel [phone], Service support [phone], Fax CC: Maggie Tracey DO Fishing Hand: Signed 13-Sep-2014 Chest PA and Lateral Result: Comments: See Note; NOTES: [facility] Imaging Services [address] [place] [address] Radiology Report MR#: [id number] Acct: [id number] Name: MARICRUZ GRIGSBY Rep #: [id number] : 1940 F 74 From: Donato Abdi MD PCP: Maggie Tracey DO Status: REG CLI Study: Chest PA and Lateral Date of Exam: 09/13/14 Exam# [id number] Ordering Dr: Maggie Tracey DO STUDY: X [...] at 12:01 EST Tel , Service support [phone], CC: Maggie Tracey DO Fishing Hand: Signed 15-Jul-2014 Chest PA and Lateral Result: Comments: See Note; NOTES: [facility] Imaging Services [address] [place] [address] Radiology Report MR#: [id number] Acct: [id number] Name: MARICRUZ GRIGSBY Rep #: [id number] : 1940 F 74 From: Teo Wayne MD PCP: Maggie Tracey DO Status: REG CLI Study: Chest PA and Lateral Date of Exam: 07/15/14 Exam# [id number] Ordering Dr: Maggie Tracey DO SANDI DY: [...] Teo Wayne MD at 9:42 EST Tel [phone], Service support [phone], CC: Maggie Tracey DO Fishing Hand: Signed 10-May-2014 Bilat Scrn Digital & CAD Result: Comments: See Note; NOTES: [facility] Imaging Services [address] [place] [address]36 Breast Imaging Report MR#: [id number] Acct: [id number] Name: MARICRUZ GRIGSBY ep #: [id number] : 1940 F 74 From: Gene Phillips PCP: Maggie Tracey DO Status: REG CLI Exam# [id number] Ordering Dr: Maggie Tracey DO MAMMOGRAPHY - [...] these results will be sent to the [facility] ient by the facility within 30 days. Approximately 10% of breast cancers are not detected by mammography. A normal mammogram should not delay biopsy of a clinically suspicious abnormality. Electro nically Signed: Jessenia Phillips MD at 19:48 EDT Tel , Service support [phone], CC: Maggie Tracey DO Fishing Hand: Signed 10-Sep-2013 Dexa Bone Density Study (HP) Result: Comments: See Note; NOTES: [facility] Imaging Services [address] [place] [address]011 Bone Density Report MR#: [id number] Acct: [id number] Name: MARICRUZ GRIGSBY Rep #: [id number] : 1940 F 73 From: Teo Wayne MD PCP: Maggie Tracey DO Status: [facility] CLI Study: Dexa Bone Density Study (HP) Date of Exam: 09/10/13 Exam# [id number] Ordering Dr: Maggie Tracey DO STUDY: DUAL [...] M.D. at 11:04 EST , Service support [phone], CC: Maggie Tracey DO Fishing Hand: Signed Immunization Name Dates Details Influenza (3 years and up) on: 04-Jun-2007 Comments: Lot #: [id number] date: 01/03Amount given: 0.5 MLRoute: IMSite given: Left deltoidGiven by: Nathaniel Beal LPN Influenza (3 years and up) on: 12-May-2009 Comments: Lot #[id number]-left deltoidgiven by:CDH Family History Unknown Family Member [...] smoker Vital Signs Date Test Result Details 6-Nog-876476:37 Pulse 110 /min Comments: Pattern: Regular Respiration Rate 18 /min Comments: Pattern: Unlabored O2 SAT 98 % Comments: Room air BP Systolic 158 mm[Hg] Comments: Patient Position: Sitting; Cuff Location: Left Arm; Cuff Size: Thigh BP Diastolic 78 mm[Hg] Comments: Patient Position: Sitting; Cuff Location: Left Arm; Cuff Size: Thigh Weight 208.5 lb Height 65 in Body Mass Index Calculated 34.7 kg/m2 Body Surface Area Calculated 2.01 m2 08-Jql-088455:08 Pulse 76 /min Comments: Pattern: Regular Respiration [...] kg/m2 Body Surface Area Calculated 2.01 m2 73-Ycy-575683:46 Temperature 97.8 f Comments: Method: Temporal Pulse [...] kg/m2 Body Surface Area Calculated 2.01 m2 91-Zef-446511:03 Temperature 98.5 f Comments: Method: Temporal Pulse [...] kg/m2 Body Surface Area Calculated 2.01 m2 88-Goa-113273:05 Pulse 74 /min Comments: Pattern: Regular Respiration [...] kg/m2 Body Surface Area Calculated 2.06 m2 79-Gll-655005:13 Temperature 98.2 f Comments: Method: Temporal Pulse [...] kg/m2 Body Surface Area Calculated 2.06 m2 2-Otk-397610:26 Comments: orthostatic bp assessment: 12:10pmlying- 170/90 76hrsitting- [...] kg/m2 Body Surface Area Calculated 2.06 m2 74-Vex-963713:29 Comments: Dr. Reyes and had a glauocma [...] Area Calculated 2.06 m2 :38 Comments: hearing wnlDrDonnie Reyes and herrera da glaucoma test done [...] administered 81mg asa orally at this time [facility] BP Systolic 156 mm[Hg] Comments: Patient Position: [...] kg/m2 Body Surface Area Calculated 1.91 m2 37-Lyf-349293:00 Pulse 68 /min Comments: Pattern: Regular Respiration [...] 0.00 cm Results Date Description Value Details 28-Wvv-577320:55 Basic Metabolic Profile (BMP) Comments: [facility] [address] [place], [address] GAP 13 (Normal) Range: 5-15 CO2 25.0 [...] A.D.A. criteria.Please note revised GLUCOSE reference range gkgtywpdj29/02/2018. 89- :55 CBC W/Diff, Automated Comments: [facility] [address] [place], [place], [id number] Absolute Lymph 0.98 {X10_3/ul} (Normal) Range: 0.83-4.51 [...] 4.2-5.4 WBC 9.1 K/mm3 (Normal) Range: 4.4-11.0 38-Ker-101457:50 Rapid Strep Test, Office (27744) Rapid Strep Test, Office Negative (Normal) :58 TSH (71250) Comments: PATIENT NOT FASTINGPERFORMED BY: [facility] [facility] [id number] TSH 5.590 {uIU/mL} (Abnormal) Range: 0.450-4.500 :58 T4, FREE (THYROXINE) (03557) Comments: PATIENT NOT FASTINGPERFORMED BY: [facility] [facility] [id number] T4,Free(Direct) 1.81 ng/dL (Abnormal) Range: 0.82-1.77 :58 T3, FREE (TRIDOTHYRONINE) (66183) Comments: PATIENT NOT FASTINGPERFORMED BY: [facility] [facility] [id number] Triiodothyronine (T3), Free 2.1 pg/mL (Normal) Range: 2.0-4.4 :44 Anti-Mitochondrial AB Comments: [facility] (refer to report for specific site)refer to report for address and phone number MITOCHN AB <20.0 {Units} (Normal) Range: 0.0-20.0 Comments: Negative 0.0 - 20.0 Equivocal 20.1 - 24.9 Positive >24.9Mitochondrial (M2) Antibodies are found in 90-96% ofpatients with primary biliary cirrhosis. :44 Anti-Smooth Muscle ABS Comments: Comments: ANTI-LIVER/KIDNEY MICRO AB [id number] [facility] (refer to report for specific site)refer [...] MELI-DIRECT Negative (Normal) Comments: Performed at: - [facility] [id number] Director: Constantine Christianson PhD, Phone: [phone] :44 Ceruloplasmin Comments: Comments: ANTI-LIVER/KIDNEY MICRO AB [id number] [facility] (refer to report for specific site)refer to report for address and phone number CERULOPLAS 1560 22.0 mg/dL (Normal) Range: 19.0-39.0 :44 CMV Acute Antibody IgM Comments: Comments: ANTI-LIVER/KIDNEY MICRO AB [id number] [facility] (refer to report for specific site)refer to report for address and phone number CMVIgM AB < 30.0 AU/mL (Normal) Range: 0.0-29.9 Comments: Negative <30.0 Equivocal 30.0 - 34.9 Positive >34.9A positive result is generally indicative of acuteinfection, reactivation or persistent IgM production. :44 Ferritin Comments: Comments: ANTI-LIVER/KIDNEY MICRO AB [id number] [facility] [address] [facility] [place], [address] FERRITIN 236 ng/mL (Normal) Range: 8-252 :44 Free T3 Comments: Comments: ANTI-LIVER/KIDNEY MICRO AB [id number] [facility] [address] [facility] [place], [address] FREE T3 1.6 pg/mL (Abnormal) Range: 2.18-3.98 :44 GGTP 64 U/L (Abnormal) Comments: Comments: ANTI-LIVER/KIDNEY MICRO AB [id number] [facility] [address] [place], [place], [id number] Range: 5-55 :44 Hepatitis Panel Acute Comments: Comments: ANTI-LIVER/KIDNEY MICRO AB [id number] [facility] (refer to report for specific site)refer to report for address and phone number HEP C AB <0.1 {s/co_ratio} (Normal) Range: 0.0-0.9 Comments: Negative: < 0.8 Indeterminate: 0.8 - 0.9 Positive: > 0.9 The CDC recommends that a positive HCV antibody result be followed up with a HCV Nucleic Acid Amplification test (897965). HB CORE [id number] Negative (Normal) HB SURF AG Negative (Normal) HEP A IgM 6734 Negative (Normal) :44 Liver Profile Comments: Comments: ANTI-LIVER/KIDNEY MICRO AB [id number] [facility] [address] [place], [address] D BILI 0.17 mg/dL (Normal) Range: 0.00-0.30 T BILI 0.60 mg/dL (Normal) Range: 0.20-1.00 ALT 48 U/L (Normal) Range: 13-56 ALK P 93 U/L (Normal) Range: 45-117 AST 43 U/L (Abnormal) Range: 15-37 GLOB 3.5 g/dL (Normal) Range: 2.2-4.2 ALB 3.7 g/dL (Normal) Range: 3.2-5.0 T PROT 7.2 g/dL (Normal) Range: 6.4-8.2 :44 Miscellaneous Lab Procedure Comments: Comments: ANTI-LIVER/KIDNEY MICRO AB [id number] [facility]) Ordered: ANTI-LIVER/KIDNEY MICROS AB [id number] [facility] [address] [place], [address] [facility] Comments: TEST RESULT UNITS REF INTERVALLiver- Kidney Microsomal Ab <1.0 Units 0.0 - 20.0 Negative 0.0 - 20.0 LAB (Normal) Equivocal 20.1 - 24.9 Positive >24.9LKM type 1 antibodies are detected in patients withautoimmune hepatitis type 2 and in up to 8% ofpatients wi TEST th chronic HCV infection. TESTING PERFORMED AT [facility]. ORIGINAL REPORT ON FILE IN LAB CONTAINS ADDITIONAL TEST SITE INFORMATION. :44 T4 Free Direct Comments: Comments: ANTI-LIVER/KIDNEY MICRO AB [id number] [facility] [address] [facility] [place], [address] T4 FREE DIRECT 1.06 ng/dL (Normal) Range: 0.76-1.46 69-Ive-85582:44 Thyroid Stim Hormone (TSH) Comments: Comments: ANTI-LIVER/KIDNEY MICRO AB [id number] [facility] [address] [facility] [place], [address] TSH 16.40 {uIU/mL} (Abnormal) Range: 0.358-3.74 :44 Transferrin Comments: Comments: ANTI-LIVER/KIDNEY MICRO AB [id number] SER/RFLabCorp (refer to report for specific site)refer to report for address and phone number TRANSFERRN 0521 250 mg/dL (Normal) Range: 200-370 Comments: Performed at: [facility] [address] [id number] Director: Constantine Christianson PhD, Phone: [phone] 78-Fjg-029988:16 Bedside Glucose Comments: [facility] LaboratoryPoint of Fipm[address] [place] [address] BEDSIDE GLU 152 mg/dL (Abnormal) Range: 70-110 Comments: MANAGEMENT OF PATIENT CARE PER NURSING PROTOCOL 85-Vkf-117021:45 Basic Metabolic Profile (BMP) Comments: [facility] [address] [place], [address] GAP 8 (Normal) Range: 5-15 CO2 28.0 [...] A.D.A. criteria.Please note revised GLUCOSE reference range bidopbnvw22/02/2018. 20-Ajp-861813:45 CBC W/Diff, Automated Comments: [facility] [address] [place], [address] Absolute Lymph 1.73 {X10_3/ul} (Normal) Range: 0.83-4.51 [...] Range: 4.4-11.0 :45 Partial Thromboplast Time Comments: [address] [place], [address] PTT 33.0 s (Normal) Range: 24.1-36.2 :45 Prothrombin Time w/INR Comments: [address], [address] INR 0.9 (Normal) PROTIME 12.5 s (Normal) Range: 11.7-14.9 :45 Troponin-I Comments: [address] [place], [address] TROPONIN-I < 0.015 ng/mL Comments: [...] <1.0 {Units} Comments: PATIENT NOT FASTINGPERFORMED BY: YouLike[address] [facility] [id number] 2:14 Microsomal Ab (Normal) Range: 0.0-20.0 Comments: Negative 0.0 - 20.0 Equivocal 20.1 - 24.9 Positive >24.9 . LKM type 1 antibodies are detected in patients with autoimmune hepatitis type 2 and in up to 8% of patients with chronic HCV infection. 67-Hxm-826336:14 HEPATIC FUNCTION PANEL Comments: PATIENT NOT FASTINGPERFORMED BY: YouLike[address] [facility] [id number] (45728) ALT (SGPT) 49 [iU]/L (Abnormal) Range: 0-32 AST (SGOT) 57 [iU]/L (Abnormal) Range: 0-40 Alkaline Phosphatase 100 [iU]/L (Normal) Range: 39-117 Bilirubin, Direct 0.14 mg/dL (Normal) Range: 0.00-0.40 Bilirubin, Total 0.4 mg/dL (Normal) Range: 0.0-1.2 Albumin 4.1 g/dL (Normal) Range: 3.5-4.8 Protein, Total 6.8 g/dL (Normal) Range: 6.0-8.5 52-Gve-113623:14 HEPATITIS PANEL (25081) Comments: PATIENT NOT FASTINGPERFORMED BY: Loved.la Fbrkah1189 [facility] [id number] Hep C Virus Ab <0.1 {s/co_ratio} (Normal) Range: 0.0-0.9 Comments: Negative: < 0.8 Indeterminate: 0.8 - 0.9 Positive: > 0.9 . The CDC recommends that a positive HCV antibody result be followed up with a HCV Nucleic Acid Amplification test (126597). Hep B Core Ab, IgM Negative (Normal) HBsAg Screen Negative (Normal) Hep A Ab, IgM Negative (Normal) 65-Qxn-190620:14 ANTIMITOCHONDRIAL ANTIBODY Comments: PATIENT NOT FASTINGPERFORMED BY: CORTEZ Griffin Yxlxan7765 [facility] [id number] (69496) Mitochondrial (M2) Antibody <20.0 {Units} (Normal) Range: 0.0-20.0 Comments: Negative 0.0 - 20.0 Equivocal 20.1 - 24.9 Positive >24.9 . Mitochondrial (M2) Antibodies are found in 90-96% of patients with primary biliary cirrhosis. 86-Dne-987736:14 TRANSFERRIN (97409) Comments: PATIENT NOT FASTINGPERFORMED BY: CORTEZ GalindoKansas City [facility] Tdlhba[address] [id number] Transferrin 226 mg/dL (Normal) Range: 200-370 23-Vvf-727436:14 GGT (GAMMA GLUTAMYLTRANSFERASE) Comments: PATIENT NOT FASTINGPERFORMED BY: Mateo[address] [id number] (22160) GGT 59 [iU]/L (Normal) Range: 0-60 72-Vsb-028304:14 FERRITIN (47650) Comments: PATIENT NOT FASTINGPERFORMED BY: CORTEZ GalindoKansas City Va [facility] Center Nvuzqm[address] [id number] Ferritin, Serum 545 ng/mL (Abnormal) Range: 15-150 45-Nzw-420327:14 CMV IGM ANTBDY (23980) Comments: PATIENT NOT FASTINGPERFORMED BY: [address] [id number] Cytomegalovirus (CMV) Ab, IgM <30.0 AU/mL (Normal) Range: 0.0-29.9 Comments: Negative <30.0 Equivocal 30.0 - 34.9 Positive >34.9 A positive result is generally indicative of acute infection, reactivation or persistent IgM production. 58-Ejj-628272:14 CERULOPLASMIN (09408) Comments: PATIENT NOT FASTINGPERFORMED BY: CORTEZ [address] [id number] Ceruloplasmin 26.3 mg/dL (Normal) Range: 19.0-39.0 62-Ctu-068944:14 ASM (ANTI SMOOTH MUSCLE Comments: PATIENT NOT FASTINGPERFORMED BY: Open Source FoodKansas City Va Medical Center Escwum1971 [facility]in [place] [id number] ANTIBODY) (88647) Actin (Smooth Muscle) Antibody 5 {Units} (Normal) Range: 0-19 Comments: Negative 0 - 19 Weak positive 20 - 30 Moderate to strong positive >30 . Actin Antibodies are found in 52-85% of patients with autoimmune hepatitis or chronic active hepatitis and in 22% of patients with primary biliary cirrhosis. 79-Pfn-901144:14 MELI (ANTINUCLEAR ANTIBODY) Comments: PATIENT NOT FASTINGPERFORMED BY: Open Source FoodSaint Mary'S Health CenterJbpmgi5609 [facility] [id number] (81913) MELI Direct Negative (Normal) 15-Tct-675971:33 HgA1C , Office (25901) HgA1C , Office 7.2 % (Abnormal) Range: 4.6 - 7.1 17-Pfs-990398:38 MELI (ANTINUCLEAR ANTIBODY) Comments: PATIENT NOT FASTINGPERFORMED BY: Open Source FoodSaint Mary'S Health CenterAthvox9890 [facility] [id number] (08019) MELI Direct Negative (Normal) 04-Cfv-137820:38 VITAMIN B-12 (CYANOCOBALAMIN) Comments: PATIENT NOT FASTINGPERFORMED BY: Open Source FoodSaint Mary'S Health CenterPbyreb5232 [facility] [id number] (20663) Vitamin B12 463 pg/mL (Normal) Range: 232-1245 79-Bwf-722852:38 TSH (55335) Comments: PATIENT NOT FASTINGPERFORMED BY: Open Source FoodMunson Healthcare [facility]6370 [facility] [id number] TSH 0.062 {uIU/mL} (Abnormal) Range: 0.450-4.500 83-Qzg-801905:38 SED RATE ERYTHROCYTE (08045) Comments: PATIENT NOT FASTINGPERFORMED BY: Open Source FoodSaint Mary'S Health CenterCwyqxz7702 [facility] [id number] Sedimentation Rate-Westergren 7 mm/h (Normal) Range: 0-40 08-Fre-042038:38 METABOLIC PANEL, COMPREHENSIVE Comments: PATIENT NOT FASTINGPERFORMED BY: Loved.laSouthern Ocean Medical CenterMqlqpu8669 [facility] [id number] (14261) ALT (SGPT) 52 [iU]/L (Abnormal) Range: 0-32 [...] 8-27 Glucose 134 mg/dL (Abnormal) Range: 65-99 72-Ywl-446662:38 C-REACTIVE PROTEIN (51865) Comments: PATIENT NOT FASTINGPERFORMED BY: Loved.laSouthern Ocean Medical CenterJfrhgt6802 [facility] [id number] C-Reactive Protein, Quant 4.8 mg/L (Normal) Range: 0.0-4.9 54-Izf-089219:38 CBC (AUTO) (77113) Comments: PATIENT NOT FASTINGPERFORMED BY: Loved.laSouthern Ocean Medical CenterCrrith5652 [facility] [id number] Platelets 248 {x10E3/uL} Range: 150-379 (Normal) RDW [...] mg/L (Abnormal) Comments: PATIENT NOT FASTINGPERFORMED BY: Convergent RadiotherapySouthern Ocean Medical CenterSjgbuo2179 [facility] [id number] BY: [address] [id number] 2:25 Serum Range: 0.6-2.4 Comments: Siemens AdTonikulite 2000 Immunochemiluminometric assay (ICMA) 4-Qat-215679:25 Immunoglobulins Comments: PATIENT NOT FASTINGPERFORMED BY: Clickst Lzgzsk[address] [place] [address] [id number] BY: Loved.la[address] [id number] Iga/Ige/Igg/Igm (GAME) (70661) Immunoglobulin E, Total 259 {IU/mL} (Abnormal) Range: 0-100 Immunoglobulin M, Qn, Serum 113 mg/dL (Normal) Range: 26-217 Immunoglobulin A, Qn, Serum 130 mg/dL (Normal) Range: 64-422 Immunoglobulin G, Qn, Serum 837 mg/dL (Normal) Range: 700-1600 8-Jnu-183576:25 LDH (LD) (LACTATE Comments: PATIENT NOT FASTINGPERFORMED BY: [facility] Radiotherapy[address] [id number] BY: [address] [id number] DEHYDROGENASE) (18919) LDH 195 [iU]/L (Normal) Range: 119-226 0-Yxb-954373:25 METABOLIC PANEL, Comments: PATIENT NOT FASTINGPERFORMED BY: Loved.laSouthern Ocean Medical CenterZrutsg1573 [facility] [id number] BY: Open Source FoodScott [place] [id number] COMPREHENSIVE (05206) ALT (SGPT) 47 [iU]/L (Abnormal) Range: 0-32 [...] 8-27 Glucose 139 mg/dL (Abnormal) Range: 65-99 4-Usk-814697:25 CBC, PLATELETS & AUT DIFF Comments: PATIENT NOT FASTINGPERFORMED BY: Loved.laSouthern Ocean Medical CenterJmryww6468 [facility] [id number] BY: Loved.la[address] [id number] (88673) Immature Grans (Abs) 0.0 {x10E3/uL} (Normal) Range: [...] 3.77-5.28 WBC 7.2 {x10E3/uL} (Normal) Range: 3.4-10.8 46-Xxh-301873:28 Microscopic Examination Comments: PATIENT NOT FASTINGPERFORMED BY: [facility] [id number] Bacteria None seen (Normal) Mucus Threads Present (Normal) Cast Type Hyaline casts (Normal) Casts Present {/lpf} (Abnormal) Epithelial Cells (non renal) 0-10 {/hpf} (Normal) Range: 0 - 10 RBC 0-2 {/hpf} (Normal) Range: 0 - 2 WBC >30 {/hpf} (Abnormal) Range: 0 - 5 94-Dkx-218352:24 URINE RANI CULTURE-RADHA COL Comments: PATIENT NOT FASTINGPERFORMED BY: The New DailyDublin [place] [id number] Information: SRC:UC COUNT (12543) Antimicrobial MIHEAD (Normal) Comments: S = Susceptible; I = Intermediate; R = Resistant P = Positive; N = Negative MICS are expressed in micrograms per mL Antibiotic RSLT#1 RSLT#2 RS Susceptibility LT#3 RSLT#4Amoxicillin/Clavulanic Acid SAmpicillin RCefepime SCeftriaxone SCefuroxime SCephalothin SCiprofloxacin SGentamicin SImipenem SNitrofurantoin SPiperacillin RTetracycline STobram ycin STrimethoprim/Sulfa S Result 1 Raoultella Comments: 5,000 Colonies/mL planticola (Abnormal) Urine Final report Culture,Comprehensive (Abnormal) 97-Quq-184090:28 MICROALBUMIN: CREATININE RATIO Comments: PATIENT NOT FASTINGPERFORMED BY: [facility]6370 [facility] [id number] (95925) AND (27118) Alb/Creat Ratio 215.8 {mg/g_creat} (Abnormal) Range: 0.0-30.0 Albumin, Urine 245.4 ug/mL (Normal) Creatinine, Urine 113.7 mg/dL (Normal) 51-Ude-241611:28 URINALYSIS, W/ MICRO (68669) Comments: PATIENT NOT FASTINGPERFORMED BY: [facility]6370 [facility] [id number] Microscopic Examination See below: (Normal) Comments: Microscopic was indicated and was performed. Nitrite, Urine Negative (Normal) Urobilinogen,Semi-Qn 0.2 mg/dL (Normal) Range: 0.2-1.0 Bilirubin Negative (Normal) Occult Blood Negative (Normal) Ketones Negative (Normal) Glucose Trace (Abnormal) Protein 1+ (Abnormal) WBC Esterase 1+ (Abnormal) Appearance Clear (Normal) Urine-Color Yellow (Normal) pH 5.5 (Normal) Range: 5.0-7.5 Specific [place] 1.025 (Normal) Range: 1.005-1.030 90-Nuc-088692:28 METABOLIC PANEL, COMPREHENSIVE Comments: PATIENT NOT FASTINGPERFORMED BY: [place] 3896870 [facility] [id number] (80379) ALT (SGPT) 37 [iU]/L (Abnormal) Range: 0-32 [...] Glucose, Serum 179 mg/dL (Abnormal) Range: 65-99 59-Jqd-514229:28 CBC, PLATELETS & AUT DIFF Comments: PATIENT NOT FASTINGPERFORMED BY: [facility] Ldbbak3092 [facility] [id number] (29092) Immature Grans (Abs) 0.0 {x10E3/uL} (Normal) Range: [...] 3.77-5.28 WBC 9.3 {x10E3/uL} (Normal) Range: 3.4-10.8 61-Fnq-778528:28 TSH (THYROID STIMULATING Comments: PATIENT NOT FASTINGPERFORMED BY: Loved.laSouthern Ocean Medical CenterYmrveg3359 [facility] [id number] HORMONE) (37306) TSH 23.220 {uIU/mL} (Abnormal) Range: 0.450-4.500 24-Gmz-949741:28 LIPID PANEL (33634) Comments: PATIENT NOT FASTINGPERFORMED BY: Open Source FoodMunson Healthcare [facility]6370 [facility] [id number] LDL/HDL Ratio 1.7 {ratio_units} (Normal) Range: 0.0-3.2 Comments: LDL/HDL Ratio Men Women 1/2 Avg.Risk 1.0 1.5 Av g.Risk 3.6 3.2 2X Avg.Risk 6.2 5.0 3X Avg.Risk 8.0 6.1 LDL Cholesterol Calc 83 mg/dL (Normal) Range: 0-99 VLDL Cholesterol Priscilla 42 mg/dL (Abnormal) Range: 5-40 HDL Cholesterol 48 mg/dL (Normal) Triglycerides 208 mg/dL (Abnormal) Range: 0-149 Cholesterol, Total 173 mg/dL (Normal) Range: 100-199 41-Aae-866339:28 CALCIFEDIOL (81621) Comments: PATIENT NOT FASTINGPERFORMED BY: [facility] Dqxnej4064 [address] [place] [id number] Vitamin D, 25-Hydroxy 25.4 ng/mL (Abnormal) Range: 30.0-100.0 Comments: Vitamin D deficiency has been defined by the Freedom ofMedicine and an Endocrine Society practice guideline as alevel of serum 25-OH vitamin D less than 20 ng/mL (1,2).The Endocrine Society went on to further define vitamin Dinsufficiency as a level between 21 and 29 ng/mL (2).1. IOM (Freedom of Medicine). 2010. Dietary reference intakes for calcium and D. [place]: The National Academies Press.2. Rachel MF, Yael NC, Dunia HERRERA, et al. Evaluation, treatment, and prevention of vitamin D deficiency: an Endocrine Society clinical practice guideline. JCEM. 2010; 96(7):1911-30. 73-Kdr-263910:40 Basic Metabolic Profile (BMP) Comments: 'TROP' Serial specimen #1, #2, #3, or #4: [address] [place] [address] [address] [place], [address] GAP 11 (Normal) Range: 5-15 CO2 24.0 [...] 126 mg/dLsuggests DIABETES MELLITUS per A.D.A. criteria. 66-Izn-791804:40 BNP,B-Type NATRIURETIC PEPTIDE Comments: [facility] D[address]leaunikt[address] [place], [place], [address] B-TYPE SANJU PEP 13.3 pg/mL (Normal) Range: 0-100 92-Qrp-450604:40 CBC W/Diff, Automated Comments: [facility] Lhbmfxyzvv8588 [facility] [address]. [place], [place], [address] Absolute Lymph 1.65 {X10_3/ul} (Normal) Range: 0.83-4.51 [...] 4.2-5.4 WBC 4.1 K/mm3 (Abnormal) Range: 4.4-11.0 04-Dbk-055709:40 Troponin-I Comments: 'TROP' Serial specimen #1, #2, #3, or #4: [address] [place] [address] [address] [place], [address] TROPONIN-I < 0.02 ng/mL (Normal) Comments: TROPONIN-I EXPECTED VALUES <0.05 NEGATIVE 0.06 - 0.59 AT RISK OF AR > OR = 0.60 SUGGEST AR 63-Hxe-456015:08 Microscopic Examination Comments: PATIENT WAS FASTINGPERFORMED BY: Loved.la Qvynvb7661 [facility] [id number] Bacteria Few (Normal) Mucus Threads Present (Normal) Cast Type Hyaline casts (Normal) Casts Present {/lpf} (Abnormal) Epithelial Cells (non renal) 0-10 {/hpf} (Normal) Range: 0 - 10 RBC 0-2 {/hpf} (Normal) Range: 0 - 2 WBC 11-30 {/hpf} (Abnormal) Range: 0 - 5 36-Fan-760008:08 CALCIFIDIOL (67257) VIT D 25 Comments: PATIENT WAS FASTINGPERFORMED BY: Loved.laEastern New Mexico Medical CenterBiouhw2269 [facility] [id number] Vitamin D, 25-Hydroxy 33.5 ng/mL (Normal) Range: 30.0-100.0 Comments: Vitamin D deficiency has been defined by the Freedom ofMedicine and an Endocrine Society practice guideline as alevel of serum 25-OH vitamin D less than 20 ng/mL (1,2).The Endocrine Society went on to further define vitamin Dinsufficiency as a level between 21 and 29 ng/mL (2).1. IOM (Freedom of Medicine). 2010. Dietary reference intakes for calcium and D. [place]: The National Academies Press.2. Rachel MF, Yael NC, Dunia HERRERA, et al. Evaluation, treatment, and prevention of vitamin D deficiency: an Endocrine Society clinical practice guideline. JCEM. 2010; 96(7):1911-30. 82-Pzh-507352:08 TSH (50975) Comments: PATIENT WAS FASTINGPERFORMED BY: Loved.laEastern New Mexico Medical CenterZllmlp4789 [facility] [id number] TSH 3.700 {uIU/mL} (Normal) Range: 0.450-4.500 67-Xfy-730770:08 LIPID PANEL (35055) Comments: PATIENT WAS FASTINGPERFORMED BY: Open Source FoodMunson Healthcare [facility]6370 [facility] [id number] LDL/HDL Ratio 1.8 {ratio_units} (Normal) Range: 0.0-3.2 Comments: LDL/HDL Ratio Men Women 1/2 Avg.Risk 1.0 1.5 Av g.Risk 3.6 3.2 2X Avg.Risk 6.2 5.0 3X Avg.Risk 8.0 6.1 LDL Cholesterol Calc 84 mg/dL (Normal) Range: 0-99 VLDL Cholesterol Priscilla 49 mg/dL (Abnormal) Range: 5-40 HDL Cholesterol 46 mg/dL (Normal) Triglycerides 243 mg/dL (Abnormal) Range: 0-149 Cholesterol, Total 179 mg/dL (Normal) Range: 100-199 17-Ugt-399988:08 URINALYSIS, W/ MICRO (42771) Comments: PATIENT WAS FASTINGPERFORMED BY: Loved.laSouthern Ocean Medical CenterGittnt9108 [facility] [id number] Microscopic Examination See below: (Normal) Comments: Microscopic was indicated and was performed. Nitrite, Urine Negative (Normal) Urobilinogen,Semi-Qn 0.2 mg/dL (Normal) Range: 0.2-1.0 Bilirubin Negative (Normal) Occult Blood Negative (Normal) Ketones Negative (Normal) Glucose Negative (Normal) Protein 2+ (Abnormal) WBC Esterase 1+ (Abnormal) Appearance Clear (Normal) Urine-Color Yellow (Normal) pH 5.5 (Normal) Range: 5.0-7.5 Specific [place] >=1.030 (Abnormal) Range: 1.005-1.030 70-Men-190148:08 MICROALBUMIN: CREATININE RATIO Comments: PATIENT WAS FASTINGPERFORMED BY: Open Source FoodMunson Healthcare [facility]6370 [facility] [id number] (50183) AND (18433) Microalb/Creat Ratio 246.3 {mg/g_creat} (Abnormal) Range: 0.0-30.0 Microalbumin, Urine 433.7 ug/mL (Normal) Comments: Results confirmed ondilution. Creatinine, Urine 176.1 mg/dL (Normal) 78-Ypn-219973:08 METABOLIC PANEL, COMPREHENSIVE Comments: PATIENT WAS FASTINGPERFORMED BY: Life[facility] GamesUniversity [facility] [id number] (21989) ALT (SGPT) 26 [iU]/L (Normal) Range: 0-32 [...] Glucose, Serum 158 mg/dL (Abnormal) Range: 65-99 56-Kjd-154695:08 CBC W/AUTO DIFF WBC (12036) Comments: PATIENT WAS FASTINGPERFORMED BY: LifeGuard Gamesmt [place] [id number] Immature Grans (Abs) 0.0 {x10E3/uL} (Normal) Range: [...] (Normal) Range: 3.4-10.8 :31 HgA1C , Office (92413) HgA1C , Office 6.6 % (Normal) Range: 4.6 - 7.1 :31 Blood Glucose , Office (30059) Blood Glucose , Office 143 (Normal) :45 CBC W/Diff, Automated Comments: [facility] [address] [place], [address] Absolute Lymph 1.46 {X10_3/ul} (Normal) [...] 4.2-5.4 WBC 12.9 K/mm3 (Abnormal) Range: 4.4-11.0 7-Ysi-905524:45 Comprehensive Metabolic Profil Comments: [facility] L[address]ylmnwfas[address] [place], [address] GAP 8 (Normal) Range: 5-15 CO2 27.0 [...] 126 mg/dLsuggests DIABETES MELLITUS per A.D.A. criteria. 2-Fzf-913004:45 Prothrombin Time w/INR Comments: [facility] [address] [place], [place], [address] INR 0.9 (Normal) PROTIME 11.6 s (Abnormal) Range: 11.7-14.9 6-Gnd-991898:12 HgA1C , Office (60371) HgA1C , Office 6.5 % (Normal) Range: 4.6 - 7.1 3-Erx-517549:12 Blood Glucose , Office (76706) Blood Glucose , Office 122 (Normal) :39 Lipid Profile Comments: [facility] [address] [place], [place], [address] VLDL 39 mg/dL (Normal) Range: 5-40 LDL [...] report for address and phone number METHYLM [id number] 215 nmol/L (Normal) Range: 0-378 Comments: Performed at: [address] [id number] Director: Frantz Josue MD, Phone: [phone] :[phone] Vitamin B12 531 pg/mL (Normal) Comments: [facility] [address] [place], [address] Range: 211-911 :39 Vitamin D,25 Hydroxy Comments: [facility] Ehchwwglol[address] [place], [address] Vitamin D 25-OH 44.7 ng/mL (Normal) Comments: Vitamin D 25(OH) Status Range Deficiency <20 ng/mL (50nmol/L) Insuffciency 20 - 30 ng/mL (50 - 75 nmol/L) Sufficiency 30 - 100 ng/mL (75 - 250 nmol/L) Toxicity >100 ng/mL (>250 nmol/L) :29 Bedside Glucose Comments: [facility] LaboratoryPoint of Cavp[address] [place] [address] BEDSIDE GLU 139 mg/dL (Abnormal) Range: 70-110 Comments: No Action RequiredMANAGEMENT OF PATIENT CARE PER NURSING PROTOCOL COLON BIOPSY (CHOOSE See Note (Normal) Comments: [facility] [address] [place], [address] :54 SITE) Comments: Patient: MARICRUZ GRIGSBY : 1940 (76/F) Acct Num: [id number] Phys: Constantine Saunders Unit Num: [id number] Loc: LABSPEC Specimen: [id number] Received: 11/05/16 - 1631 Spe c Type: [...] one cassette. / RY:edita 11/06/16 TC:1 CPT: 84510 x2 HEADER OPERATION: Colonoscopy with polypectomy PRE-OP [...] Signed Zane Elliott 11/07/16 <signature on file> 74-Zbj-817612:47 CBC W/Diff, Automated Comments: [facility] [address] [place], [place], [address] Absolute Lymph 1.88 {X10_3/ul} (Normal) Range: 0.83-4.51 [...] 4.2-5.4 WBC 8.8 K/mm3 (Normal) Range: 4.4-11.0 34-Vhb-740997:42 Comprehensive Metabolic Profil Comments: Order Date: 10/10/16Order Info: 0786-1 - *CMP Complete Metabolic PanelOrder Info: 87210-9 - *IBC Iron \E AND E\ Total Iron Binding CapacityOrder Info: 2276-4 - *FerritinComments: Reason:Order Date: 10/10/16Order Info: 97034-7 - *KAPLAMBDA - Urbanna Lamda Light ChainsComments: Reason:[facility] [address] [place], [address] GAP 1 (Normal) Range: 5-15 CO2 28.0 mmol/L (Normal) [...] <126 mg/dLsuggests IMPAIRED HOMEOSTASIS per A.D.A. criteria. 54-Qcb-290525:42 Ferritin Comments: Order Date: 10/10/16Order Info: 0786-1 - *CMP Complete Metabolic PanelOrder Info: 95751-4 - *IBC Iron \E AND E\ Total Iron Binding CapacityOrder Info: 2276-4 - *FerritinComments: Reason:Order Date: 10/10/16Order Info: 15315-7 - *KAPLAMBDA - U[place]anna Lamda Light ChainsComments: Reason:[facility] Bnmtabybsu[address] [facility] [place], [place], [address] FERRITIN 45 ng/mL (Normal) Range: 8-252 09-Qzq-066636:42 DEEPALI + Protein Elect, Serum Comments: Order Date: 10/10/16Order Info: 0282-1 - *IMEL DEEPALI + Prot Elec, Serum 1495Order Info: 94943-2 - *KAPLAMBDA - [place] Lamda Light ChainsOrder Date: 10/10/16Order Info: 0282-1 - *IMEL DEEPALI + Prot Elec, Serum 1495Order Info: 19101-0 - *KAPLAMBDA - U[place] Lamda Light ChainsOrder Date: 10/10/16Order Info: 21417-6 - *KAPLAMBDA - U[place]anna Lamda Light ChainsIs Patient Fasting? NComments: Reason:[facility] (refer to report for specific site)refer to report for address and phone number NOTE: Comment (Normal) Comments: Protein electrophoresis scan will follow via computer,mail, or data sciences director delivery. DEEPALI RESULT,S Comment (Normal) Comments: Immunofixation shows IgG monoclonal protein with lambdalight chain specificity. A/G RATIO 1.4 (Normal) Range: 0.7-1.7 GLOBULIN, TOTAL 2.8 g/dL (Normal) Range: 2.2-3.9 M-SPIKE 0.3 g/dL (Abnormal) GAMMA GLOBULIN 0.8 g/dL (Normal) Range: 0.4-1.8 BETA GLOBULIN 0.9 g/dL (Normal) Range: 0.7-1.3 CKUWN-0-NILG 0.9 g/dL (Normal) Range: 0.4-1.0 HMVOS-2-YMJS 0.2 g/dL (Normal) Range: 0.0-0.4 ALBUMIN 3.7 g/dL (Normal) Range: 2.9-4.4 IMMUNOGL M 100 mg/dL (Normal) Range: 26-217 IMMUNO A 106 mg/dL (Normal) Range: 64-422 IMMUNO G 693 mg/dL (Abnormal) Range: 700-1600 PROTEIN,TOTAL 6.5 g/dL (Normal) Range: 6.0-8.5 90-Fhh-847033:42 Iron+Iron Binding Capacity Comments: Order Date: 10/10/16Order Info: 0786-1 - *CMP Complete Metabolic PanelOrder Info: 61352-7 - *IBC Iron \E AND E\ Total Iron Binding CapacityOrder Info: 2276-4 - *FerritinComments: Reason:Order Date: 10/10/16Order Info: 37996-0 - *KAPLAMBDA - U[place]anna Lamda Light ChainsComments: Reason:[facility] [address] [place], [place], [address] IRON SATURATION 15.9 % (Normal) Range: 15.0-55.0 IRON 49 ug/dL (Abnormal) Range: 50-170 TIBC 309 ug/dL (Normal) Range: 250-450 [id number] [place] Lambda Light Chains Comments: Order Date: 10/10/16Order Info: 0282-1 - *IMEL DEEPALI + Prot Elec, Serum 1495Order Info: 17740-7 - *KAPLAMBDA - [place] Lamda Light ChainsOrder Date: 10/10/16Order Info: 0282-1 - *IMEL DEEPALI + Prot Elec, Serum 1495Order Info: 92671-6 - *KAPLAMBDA - [place] Lamda Light ChainsOrder Date: 10/10/16Order Info: 94695-2 - *KAPLAMBDA - [place] Lamda Light ChainsIs Patient Fasting? NComments: Reason:[facility] (refer to report for specific site)refer to report for address and phone number KAPPA/LAMBDA % 0.98 (Normal) Range: 0.26-1.65 Comments: Performed at: - [facility] [address] [id number] Director: Constantine Christianson PhD, Phone: [phone] FR LAMBDA LT CH 19.06 mg/L (Normal) Range: 5.71-26.30 FR KAPPA LT CHN 18.62 mg/L (Normal) Range: 3.30-19.40 44-Fmo-[id number]:06 VITAMIN B-12 (CYANOCOBALAMIN) Comments: PATIENT NOT FASTINGPERFORMED BY: [facility] [id number] (35646) Vitamin B12 709 pg/mL (Normal) Range: 211-946 54-Mij-702805:45 Blood Glucose , Office (48898) Blood Glucose , Office 104 (Normal) 21-Tzs-130667:45 HgA1C , Office (06088) HgA1C , Office 6.7 % (Normal) Range: 4.6 - 7.1 :54 CBC W/Diff, Automated Comments: [facility] [address] [place], [address] Absolute Lymph 1.51 {X10_3/ul} (Normal) Range: 0.83-4.51 [...] 4.2-5.4 WBC 7.0 K/mm3 (Normal) Range: 4.4-11.0 18-Otx-59386:54 Comprehensive Metabolic Profil Comments: [facility] [address] [place], [place], [address] GAP 8 (Normal) Range: 5-15 CO2 28.0 [...] 126 mg/dLsuggests DIABETES MELLITUS per A.D.A. criteria. 05-Kco-50286:54 Lipid Profile Comments: [facility] [address] [place], [address] VLDL 38 mg/dL (Normal) Range: 5-40 LDL [...] High Risk :54 Microalb:Creat Ratio,Random UR Comments: [facility] [address] [place], [address] MALB:CREAT 223.2 {mg/g_CRE} (Abnormal) MICROALBUMIN,UR 250.0 mg/L (Normal) UR CREAT 112.00 mg/dL (Normal) :54 Thyroid Stim Hormone (TSH) Comments: [facility] [address] [place], [address] TSH 1.13 {uIU/mL} (Normal) Range: 0.358-3.74 :54 Urinalysis, Complete Comments: How was Urine Obtained? CLEAN [facility] [address]uf[address] [place], [address] MUCUS, URINE 0 SEEN {/hpf} (Normal) [...] Yellow (Normal) :54 Vitamin D,25 Hydroxy Comments: [facility] [address] [place], [address] Vitamin D 25-OH 31.6 ng/mL (Normal) Comments: Vitamin D 25(OH) Status Range Deficiency <20 ng/mL (50nmol/L) Insuffciency 20 - 30 ng/mL (50 - 75 nmol/L) Sufficiency 30 - 100 ng/mL (75 - 250 nmol/L) Toxicity >100 ng/mL (>250 nmol/L) 42-Afr-466284:07 VITAMIN B-12 (CYANOCOBALAMIN) Comments: PATIENT NOT FASTINGPERFORMED BY: [facility]6370 [facility] [id number] (57657) Vitamin B12 1119 pg/mL (Abnormal) Range: 211-946 28-Gti-060181:23 Microscopic Examination Comments: PATIENT WAS FASTINGPERFORMED BY: [facility]6370 [facility] [id number] Bacteria Few (Normal) Mucus Threads Present (Normal) Epithelial Cells (non renal) 0-10 {/hpf} (Normal) Range: 0 - 10 RBC 0-2 {/hpf} (Normal) Range: 0 - 2 WBC >30 {/hpf} (Abnormal) Range: 0 - 5 75-Fjy-892492:23 VITAMIN B-12 (CYANOCOBALAMIN) Comments: PATIENT WAS FASTINGPERFORMED BY: [facility]6[address] [facility] [id number] (49229) Vitamin B12 >2000 pg/mL (Abnormal) Range: 211-946 22-Aaa-821552:23 TSH (80827) Comments: PATIENT WAS FASTINGPERFORMED BY: [facility]6[address] [facility] [id number] TSH 5.380 {uIU/mL} (Abnormal) Range: 0.450-4.500 28-Dty-001450:23 URINALYSIS, W/ MICRO (67493) Comments: PATIENT WAS FASTINGPERFORMED BY: [facility]6370 [facility] [id number] Microscopic Examination See below: (Normal) Comments: Microscopic was indicated and was performed. Nitrite, Urine Negative (Normal) Urobilinogen,Semi-Qn 0.2 mg/dL (Normal) Range: 0.2-1.0 Bilirubin Negative (Normal) Occult Blood Negative (Normal) Ketones Negative (Normal) Glucose Negative (Normal) Protein Trace (Normal) WBC Esterase 2+ (Abnormal) Appearance Clear (Normal) Urine-Color Yellow (Normal) pH 6.0 (Normal) Range: 5.0-7.5 Specific [place] 1.022 (Normal) Range: 1.005-1.030 28-Bbl-013558:23 MICROALBUMIN: CREATININE RATIO Comments: PATIENT WAS FASTINGPERFORMED BY: [facility]6[address] [facility] [id number] (47648) AND (28242) Microalb/Creat Ratio 24.2 {mg/g_creat} (Normal) Range: 0.0-30.0 Microalbumin, Urine 35.4 ug/mL (Normal) Creatinine, Urine 146.0 mg/dL (Normal) :23 METABOLIC PANEL, COMPREHENSIVE Comments: PATIENT WAS FASTINGPERFORMED BY: [facility]6[address] [facility] [id number] (80791) ALT (SGPT) 25 [iU]/L (Normal) Range: 0-32 [...] Glucose, Serum 143 mg/dL (Abnormal) Range: 65-99 79-Bmp-199603:23 CBC W/AUTO DIFF WBC (20743) Comments: PATIENT WAS FASTINGPERFORMED BY: [facility] CenterHddgnz9645 [facility] [id number] Immature Grans (Abs) 0.0 {x10E3/uL} (Normal) Range: [...] 3.77-5.28 WBC 7.4 {x10E3/uL} (Normal) Range: 3.4-10.8 85-Jpa-261277:23 CALCIFIDIOL (93544) VIT D 25 Comments: PATIENT WAS FASTINGPERFORMED BY: [facility]CoSouthern [facility] CenterNhrzle1288 [facility] [id number] Vitamin D, 25-Hydroxy 28.9 ng/mL (Abnormal) Range: 30.0-100.0 Comments: Vitamin D deficiency has been defined by the Freedom ofBluffton Hospitalcine and an Endocrine Society practice guideline as alevel of serum 25-OH vitamin D less than 20 ng/mL (1,2).The Endocrine Society went on to further define vitamin Dinsufficiency as a level between 21 and 29 ng/mL (2).1. IOM (Freedom of Medicine). 2010. Dietary reference intakes for calcium and D. [place]: The National Academies Press.2. Rachel MF, Yael NC, Dunia HERRERA, et al. Evaluation, treatment, and prevention of vitamin D deficiency: an Endocrine Society clinical practice guideline. JCEM. 2010; 96(7):1911-30. :22 HgA1C , Office (19856) HgA1C , Office 7.1 % (Normal) Range: 4.6 - 7.1 :22 Blood Glucose , Office (18041) Blood Glucose , Office 171 (Normal) 4-Pug-412410:10 Basic Metabolic Profile (BMP) Comments: Serial Specimen #1, #2 or #3? 1'TROP' Serial specimen #1, #2, #3, or #4: 1[facility] [address] [place], [address] GAP 8 (Normal) Range: 5-15 CO2 28.0 [...] 126 mg/dLsuggests DIABETES MELLITUS per A.D.A. criteria. 1-Wlp-623222:10 CBC W/Diff, Automated Comments: [facility] [address] [place], [place], [address] Absolute Lymph 1.32 {X10_3/ul} (Normal) Range: 0.83-4.51 [...] Serial specimen #1, #2, #3, or #4: [address] [place] [address] [address] [place], [address] CKRI 1.3 % (Normal) Range: [...] Serial specimen #1, #2, #3, or #4: [address] [place] [address] [address] [place], [address] TROPONIN-I < 0.02 ng/mL (Normal) Comments: TROPONIN-I EXPECTED VALUES <0.05 NEGATIVE 0.06 - 0.59 AT RISK OF AR > OR = 0.60 SUGGEST AR 0-Hxr-220526:55 Blood Glucose , Office (26357) Blood Glucose , Office 117 (Normal) 0-Nun-618858:36 HgA1C , Office (97379) HgA1C , Office 7.1 % (Normal) Range: 4.6 - 7.1 :52 CBC W/Diff, Automated Comments: CBCD WITH WBC PER ORDERCh[facility]ic[facility] [address]tf[address] [place], [address] Absolute Lymph 1.67 {X10_3/ul} (Normal) [...] Range: 4.4-11.0 30-Nov-20156:52 Comprehensive Metabolic Profil Comments: [facility] [address] [place], [address] GAP 10 (Normal) Range: 5-15 CO2 26.0 [...] specificity.Bence Jorge Protein positive; lambda type.Performed at: [place] [address] 1269[facility] Dire ctor: Constantine Christianson PhD, Phone: [phone] :[phone] Immunofixation, Serum Comments: [facility] (refer to report for specific site)refer to report for address and phone number DEEPALI RESULT,S Comment (Normal) Comments: Immunofixation shows IgG monoclonal protein with lambdalight chain specificity. IMMUNOGL M 112 mg/dL (Normal) Range: 26-217 IMMUNO A 110 mg/dL (Normal) Range: 64-422 IMMUNO G 783 mg/dL (Normal) Range: 700-1600 :52 [place] Lambda Light Chains Comments: [facility] (refer to report for specific site)refer to report for address and phone number KAPPA/LAMBDA % 1.03 (Normal) Range: 0.26-1.65 FR LAMBDA LT CH 21.11 mg/L (Normal) Range: 5.71-26.30 FR KAPPA LT CHN 21.66 mg/L (Abnormal) Range: 3.30-19.40 :52 Lipid Profile Comments: [facility] [address] [place], [address] ; review OV 12/02/15 VLDL 35 [...] High Risk :52 Microalb:Creat Ratio,Random UR Comments: [facility] [address] [place], [address] MALB:CREAT 44.5 {mg/g_CRE} (Abnormal) MICROALBUMIN,UR 68.1 mg/L (Normal) UR CREAT 153.00 mg/dL (Normal) :52 Vitamin B12 268 pg/mL (Normal) Comments: [facility] [address] [place], [address] Range: 211-911 Comments: ADDENDA: normal and has f/u this saturday:52 Vitamin D,25 Hydroxy Comments: [facility] [address] [place], [address] Vitamin D 25-OH 48.8 ng/mL (Normal) Comments: Vitamin D 25(OH) Status Range Deficiency <20 ng/mL (50nmol/L) Insuffciency 20 - 30 ng/mL (50 - 75 nmol/L) Sufficiency 30 - 100 ng/mL (75 - 250 nmol/L) Toxicity >100 ng/mL (>250 nmol/L) :15 Basic Metabolic Profile (BMP) Comments: [facility] [address] [place], [address] GAP 10 (Normal) Range: 5-15 [...] A.D.A. criteria. :15 CBC W/Diff, Automated Comments: [facility] [address] [place], [place], [address] RED CELL MORPH NORM C+C {NORMAL} (Normal) [...] 4.2-5.4 WBC 11.4 K/mm3 (Abnormal) Range: 4.4-11.0 26-Ufj-617579:08 HgA1C , Office (52857) HgA1C , Office 6.8 % (Normal) Range: 4.6 - 7.1 5-Doe-090431:30 FERRITIN (10863) Comments: PATIENT WAS FASTINGPERFORMED BY: [facility]oved.laSouthern Ocean Medical CenterMoytzu3636 [facility] [id number] Ferritin, Serum 121 ng/mL (Normal) Range: 15-150 0-Sbd-841254:30 IRON (67175) Comments: PATIENT WAS FASTINGPERFORMED BY: Loved.laSouthern Ocean Medical CenterSjupla0685 [facility] [id number] Iron, Serum 56 ug/dL (Normal) Range: 35-155 [...] - 159 >60 years 27 - 139 8-Kxa-217285:30 TSH (70772) Comments: PATIENT WAS FASTINGPERFORMED BY: [facility] Uysyji3620 [facility] [id number] TSH 1.660 {uIU/mL} (Normal) Range: 0.450-4.500 9-Mah-147203:30 LIPID PANEL (84988) Comments: PATIENT WAS FASTINGPERFORMED BY: [employer]70 [facility] [id number] LDL/HDL Ratio 2.1 {ratio_units} (Normal) Range: 0.0-3.2 [...] Cholesterol, Total 190 mg/dL (Normal) Range: 100-199 2-Laq-086546:30 METABOLIC PANEL, COMPREHENSIVE Comments: PATIENT WAS FASTINGPERFORMED BY: [facility] Xrdzta0601 [facility] [id number] (64374) ALT (SGPT) 24 [iU]/L (Normal) Range: 0-32 [...] Glucose, Serum 122 mg/dL (Abnormal) Range: 65-99 7-Ccj-166779:30 Vitamin D Hydroxy (96523) Comments: PATIENT WAS FASTINGPERFORMED BY: [facility] [id number] Vitamin D, 25-Hydroxy 25.3 ng/mL (Abnormal) Range: 30.0-100.0 Comments: Vitamin D deficiency has been defined by the Freedom ofBluffton Hospitalcine and an Endocrine Society practice guideline as alevel of serum 25-OH vitamin D less than 20 ng/mL (1,2).The Endocrine Society went on to further define vitamin Dinsufficiency as a level between 21 and 29 ng/mL (2).1. IOM (Freedom of Medicine). 2010. Dietary reference intakes for calcium and D. [place]: The National Academies Press.2. Rachel MF, Yael NC, Dunia HERRERA, et al. Evaluation, treatment, and prevention of vitamin D deficiency: an Endocrine Society clinical practice guideline. JCEM. 2010; 96(7):1911-30. 0-Tql-433468:30 CBC W/AUTO DIFF WBC Comments: PATIENT WAS FASTINGPERFORMED BY: [facility] [place] Daily[place] [id number] Information: [id number] (22113) Immature Grans (Abs) 0.0 {x10E3/uL} (Normal) Range: [...] 3.77-5.28 WBC 8.2 {x10E3/uL} (Normal) Range: 3.4-10.8 1-Gbx-519332:30 serum free light chains Comments: PATIENT WAS FASTINGPERFORMED BY: CORTEZ [facility]6370 [facility] [id number] (21880) [place]/Lambda Ratio,S 0.81 (Normal) Range: 0.26-1.65 Free Lambda Lt Chains,S 17.93 mg/L (Normal) Range: 5.71-26.30 Free [place] Lt Chains,S 14.55 mg/L (Normal) Range: 3.30-19.40 6-Usk-719198:08 urine immunofixation (42476) Comments: PATIENT NOT FASTINGPERFORMED BY: [facility]6370 [facility] [id number] Information: SRC:UR [id number] DEEPALI Interpretation:U IFEGL (Normal) Comments: 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 0-Xjo-608519:30 serum immunofixation (62427) Comments: PATIENT WAS FASTINGPERFORMED BY: [facility]6370 [facility] [id number] Immunoglobulin M, Qn, Serum 99 mg/dL (Normal) Range: 40-230 Immunoglobulin A, Qn, Serum 107 mg/dL (Normal) Range: 91-414 Immunoglobulin G, Qn, Serum 814 mg/dL (Normal) Range: 700-1600 Immunofixation Result, Serum IFEGL (Normal) Comments: Immunofixation shows IgG monoclonal protein with lambda light chainspecificity. :49 CBC W/Diff, Automated Comments: [facility] [address] [place], [place], [address] Absolute Lymph 0.99 {X10_3/ul} (Normal) Range: 0.83-4.51 [...] K/mm3 (Normal) Range: 4.4-11.0 :49 Ferritin Comments: [facility] [address] [place], [address] FERRITIN 80 ng/mL (Normal) Range: 8-252 :49 Hemoglobin A1c Comments: [facility] [address] [place], [address] HGB A1C 6.4 % (Abnormal) Range: 4.2-6.3 :49 Iron Comments: [facility] [address] [place], [address] IRON 43 ug/dL (Abnormal) Range: 50-170 :49 Iron Binding Capacity,Total Comments: [address] [place], [address] TIBC 336 ug/dL (Normal) Range: 250-450 :49 Protein Electro.Ur-Random Comments: [facility] (refer to report for specific site)refer to report for address and phone number M-SPIKE,U Test not performed (Normal) GAMMA GLOB,U Test not performed (Normal) Comments: Test not performed BETA GLOB,U Test not performed (Normal) Comments: Test not performed EWVVH-4-SSXI,U Test not performed (Normal) Comments: Test not performed KGCCT-3-SVFX,U Test not performed (Normal) Comments: Test not [...] scan will follow via computer,mail, or data sciences director delivery. NOTE: Comment (Normal) Comments: The SPE [...] scan will follow via computer,mail, or data sciences director delivery. A/G RATIO 1.5 (Normal) Range: 0.7-2.0 [...] 6.0-8.5 :49 Thyroid Stim Hormone (TSH) Comments: [facility] [address] [place], [place], [address] TSH 4.43 {uIU/mL} (Abnormal) Range: 0.358-3.74 :49 Vitamin B12 431 pg/mL (Normal) Comments: [facility] [address] [place], [place], [address] Range: 211-911 Comments: ADDENDA: has apt today :58 AFP, Tumor Marker Comments: Is Patient ? [facility] (refer to report for specific site)refer to report for address and phone number AFP TUMOR 2253 4.9 ng/mL (Normal) Range: 0.0-8.3 Comments: [employer] ECLIA methodologyPerformed at: - [facility] [address] [id number] Director: Constantine Christianson PhD, Phone: [phone] 25-Ozk-97274:58 CBC W/Diff, Automated Comments: [facility] [address] [place], [place], [address] Absolute Lymph 1.46 {X10_3/ul} (Normal) Range: 0.83-4.51 [...] 4.2-5.4 WBC 7.3 K/mm3 (Normal) Range: 4.4-11.0 :58 Comprehensive Metabolic Profil Comments: [facility] [address] [place], [place], [address] GAP 7 (Normal) Range: 5-15 CO2 28.0 [...] per A.D.A. criteria. :58 Lipid Profile Comments: [facility] [address] [place], [place], [address] ; non-emergent and has apth this week [...] :58 Vitamin B12 278 pg/mL (Normal) Comments: [facility] Arfixmtrxd[address] [place], [address] Range: 211-911 :58 Vitamin D,25 Hydroxy Comments: [facility] [address] [place], [address] Vitamin D 25-OH 38.4 ng/mL (Normal) Comments: Vitamin D 25(OH) Status Range Deficiency <20 ng/mL (50nmol/L) Insuffciency 20 - 30 ng/mL (50 - 75 nmol/L) Sufficiency 30 - 100 ng/mL (75 - 250 nmol/L) Toxicity >100 ng/mL (>250 nmol/L) 33-Msz-784741:07 HgA1C , Office (17415) HgA1C , Office 6.5 % (Normal) Range: 4.6 - 7.1 :43 AFP, Tumor Marker Comments: Is Patient ? NTest performed at:[facility] Gwkgypowtp5109 [facility] [place] [address] AFP TUMOR 2253 4.8 ng/mL (Normal) Range: 0.0-8.3 Comments: [employer] ECLIA methodologyPerformed at: [facility] [address] [id number] Director: Arnold Jefferson PhD, Phone: [phone] :[phone] CBC W/Diff, Automated Comments: Test performed at:[facility] [address] [place] [address] Absolute Lymph 1.16 {X10_3/ul} (Normal) [...] 4.2-5.4 WBC 5.6 K/mm3 (Normal) Range: 4.4-11.0 02-Qer-86005:43 Comprehensive Metabolic Profil Comments: Test performed at:[facility] [address] [place], [place] [address] GAP 11 (Normal) Range: 5-15 CO2 24.0 [...] criteria. :43 Lipid Profile Comments: Test performed at:[facility] [address] [place] [address] VLDL 61 mg/dL (Abnormal) Range: 5-40 [...] :43 Microalb:Creat Ratio,Random UR Comments: Test performed at:[facility] [address] [place] [address] MALB:CREAT 15.9 {mg/g_CRE} (Normal) MICROALBUMIN,UR 19.2 mg/L (Normal) UR CREAT 120.3 mg/dL (Normal) 86-Siz-22882:43 Thyroid Stim Hormone (TSH) Comments: Test performed at:[facility] Dmhszutatw3262 [facility] [place] [address] TSH 2.19 {uIU/mL} (Normal) Range: 0.358-3.74 :43 Vitamin B12 261 pg/mL (Normal) Comments: Test performed at:[facility] [address] [place] [address] Range: 211-911 Comments: ADDENDA: nl and pt has apt tomorrow :43 Vitamin D,25 Hydroxy Comments: Test performed at:[facility] [address] [place] [address] Vitamin D 25-OH 30.9 ng/mL (Normal) Comments: Vitamin D 25(OH) Status Range Deficiency <20 ng/mL (50nmol/L) Insuffciency 20 - 30 ng/mL (50 - 75 nmol/L) Sufficiency 30 - 100 ng/mL (75 - 250 nmol/L) Toxicity >100 ng/mL (>250 nmol/L) :38 HgA1C , Office (05943) HgA1C , Office 6.7 % (Normal) Range: 4.6 - 7.1 :56 AFP, Tumor Marker Comments: Is Patient ? NTest performed at:[facility] [address] [place] [address] ; appt 02/15 AFP TUMOR 2253 4.8 ng/mL (Normal) Range: 0.0-8.3 Comments: Patricia ECLIA methodologyPerformed at: [facility] - [facility] [address] [id number] Director: Arnold Jefferson PhD, Phone: [phone] :[phone] CBC W/Diff, Automated Comments: Test performed at:[facility] Frnxmimbcv6812 [facility] [place] [address] Absolute Lymph 2.37 {X10_3/ul} (Normal) Range: [...] 4.4-11.0 :56 Lipid Profile Comments: Test performed at:[facility] [address] [place] [address] VLDL 26 mg/dL (Normal) Range: [...] 200-240 mg/dL Borderline >240 mg/dL High Risk 75-Zsm-51955:56 Partial Thromboplast Time Comments: Test performed at:[facility] [address] [place] [address] PTT 30.1 s (Normal) Range: 24.1-36.2 :56 Prothrombin Time w/INR Comments: Test performed at:[facility] [address] [place] [address] INR 1.0 (Normal) PROTIME 12.8 s (Normal) Range: 11.7-14.9 :56 Thyroid Stim Hormone (TSH) Comments: Test performed at:[facility] [address] [place] [address] TSH 5.17 {uIU/mL} (Abnormal) Range: 0.358-3.74 :56 Vitamin B12 293 pg/mL (Normal) Comments: Test performed at:[facility] [address] [place] [address] Range: 211-911 :56 Vitamin D,25 Hydroxy Comments: Test performed at:[facility] [address] [place] [address] Vitamin D 25-OH 32.0 ng/mL (Normal) Comments: Vitamin D 25(OH) Status Range Deficiency <20 ng/mL (50nmol/L) Insuffciency 20 - 30 ng/mL (50 - 75 nmol/L) Sufficiency 30 - 100 ng/mL (75 - 250 nmol/L) Toxicity >100 ng/mL (>250 nmol/L) 67-Nep-655887:07 HgA1C , Office (59195) HgA1C , Office 6.3 % (Normal) Range: 4.6 - 7.1 :33 CBC W/Diff, Automated Comments: Test performed at:[facility] [address] [place] [address] ; non- emergent till apt Absolute [...] 4.2-5.4 WBC 7.3 K/mm3 (Normal) Range: 4.4-11.0 70-Igv-83158:33 Comprehensive Metabolic Profil Comments: Test performed at:[facility] [address] [place] [address] GAP 4 (Abnormal) Range: 5-15 CO2 28.0 [...] criteria. :33 Lipid Profile Comments: Test performed at:[facility] [address] [place] [address] VLDL 29 mg/dL (Normal) Range: 5-40 [...] B12 394 pg/mL (Normal) Comments: Test performed at:[facility] Xxslejmmzc1192 [place] [address] Range: 211-911 :33 Vitamin D,25 Hydroxy Comments: Test performed at:[facility] [address] [place] [address] Vitamin D 25-OH 39.6 ng/mL (Normal) Comments: Vitamin D 25(OH) Status Range Deficiency <20 ng/mL (50nmol/L) Insuffciency 20 - 30 ng/mL (50 - 75 nmol/L) Sufficiency 30 - 100 ng/mL (75 - 250 nmol/L) Toxicity >100 ng/mL (>250 nmol/L) :10 HgA1C , Office (38202) HgA1C , Office 6.4 % (Normal) Range: [...] CHOL 167 mg/dL (Normal) Comments: <200 mg/dL Leitrktyn837-197 mg/dL Borderline>240 mg/dL High Risk TRIG 200 mg/dL (Abnormal) Range: 0-199 Comments: Serum Triglycerides Reference IntervalNormal <150 mg/dLBorderline high 150 - 199 mg/dLHigh 200 - 499 mg/ dLVery High > or = 500 mg/dL :42 TIBC 275 ug/dL (Normal) Range: 250-450 :42 TSH 2.12 {uIU/mL} (Normal) Range: 0.358-3.74 12-Xyg-953801:10 FERRITIN (64920) Comments: PATIENT NOT FASTINGPERFORMED BY: [place] 3896870 [facility] [id number] Ferritin, Serum 133 ng/mL (Normal) Range: 15-150 08-Sxj-166167:10 IRON BINDING CAPACITY Comments: PATIENT NOT FASTINGPERFORMED BY: [facility] [place] [address] [id number] Information: [id number] (TIBC) (22825) Iron Saturation 20 % (Normal) Range: 15-55 Iron, Serum 62 ug/dL (Normal) Range: 35-155 UIBC 241 ug/dL (Normal) Range: 150-375 Iron Bind.Cap.(TIBC) 303 ug/dL (Normal) Range: 250-450 74-Srp-378973:10 VITAMIN B-12 (CYANOCOBALAMIN) Comments: PATIENT NOT FASTINGPERFORMED BY: [facility] FoodM[facility]6370 [facility] [id number] (37315) Vitamin B12 421 pg/mL (Normal) Range: 211-946 96-Fbv-937229:10 TSH (98163) Comments: PATIENT NOT FASTINGPERFORMED BY: [facility]6370 [facility] [id number] TSH 1.150 {uIU/mL} (Normal) Range: 0.450-4.500 99-Qkm-903648:37 HgA1C , Office (15086) HgA1C , Office 6.1 % (Normal) Range: 4.6 - 7.1 7-Ghd-203849:10 CBC with manual diff Comments: PATIENT WAS FASTINGPERFORMED BY: [facility]6370 [facility] [id number] Information: [id number] (75110) Immature Grans (Abs) 0.0 {x10E3/uL} (Normal) Range: [...] 3.77-5.28 WBC 8.2 {x10E3/uL} (Normal) Range: 3.4-10.8 1-Puu-854013:10 Metabolic Panel, Comprehensive Comments: PATIENT WAS FASTINGPERFORMED BY: [facility]CoSouthern [facility] CenterHauhoa1147 [facility] [id number] (42888) ALT (SGPT) 11 [iU]/L (Normal) Range: 0-32 [...] Glucose, Serum 129 mg/dL (Abnormal) Range: 65-99 0-Vld-618645:10 Lipid Panel (43044) Comments: PATIENT WAS FASTINGPERFORMED BY: [facility] Ymexqt5445 [facility] [id number] LDL/HDL Ratio 1.4 {ratio_units} (Normal) Range: 0.0-3.2 [...] METABOLIC PANEL, Comments: PATIENT NOT FASTINGPERFORMED BY: [place]70 [facility] [id number] Information: [id number] COMPREHENSIVE (66852) ALT (SGPT) 15 [iU]/L (Normal) Range: 0-32 [...] 133 mg/dL (Abnormal) Range: 65-99 :14 TSH (17198) Comments: PATIENT NOT FASTINGPERFORMED BY: [employer] [id number] [facility] [id number] TSH 0.182 {uIU/mL} (Abnormal) Range: 0.450-4.500 :40 [...] CHOL 99 mg/dL (Normal) Comments: <200 mg/dL [id number] mg/dL Borderline>240 mg/dL High Risk :40 MIACRE [...] CHOL 148 mg/dL (Normal) Comments: <200 mg/dL [id number] mg/dL Borderline>240 mg/dL High Risk HDL 46 [...] - 250 nmol/L)Toxicity >100 ng/mL (>250 nmol/L) 59-Zgr-415070:27 HgA1C , Office (66399) HgA1C , Office 6.7 % (Normal) Range: 4.6 - 7.1 :17 METABOLIC PANEL, COMPREHENSIVE Comments: PATIENT WAS FASTINGPERFORMED BY: [facility] Xetnsy2310 [facility] [id number] (79313) ALT (SGPT) 16 [iU]/L (Normal) Range: 0-32 [...] mg/dL (Abnormal) Range: 65-99 :17 LIPID PANEL (54674) Comments: PATIENT WAS FASTINGPERFORMED BY: [facility]6370 [facility] [id number] LDL/HDL Ratio 2.0 {ratio_units} (Normal) Range: 0.0-3.2 [...] MANUAL DIFF Comments: PATIENT WAS FASTINGPERFORMED BY: CORTEZ LabCoSouthern Ocean Medical CenterPwovhd6605 [facility] [id number] Information: [id number] (79101) Immature Grans (Abs) 0.0 {x10E3/uL} (Normal) Range: [...] B-12 (CYANOCOBALAMIN) Comments: PATIENT WAS FASTINGPERFORMED BY: Loved.la Qdrlhq3638 [facility] [place] [id number] (33218) Vitamin B12 696 pg/mL (Normal) Range: 211-946 :17 Vitamin D Hydroxy (94162) Comments: PATIENT WAS FASTINGPERFORMED BY: [facility] Egndqf1507 [facility] [place] [id number] Vitamin D, 25-Hydroxy 29.3 ng/mL (Abnormal) Range: 30.0-100.0 Comments: Vitamin D deficiency has been defined by the Freedom ofBluffton Hospitalcine and an Endocrine Society practice guideline as alevel of serum 25-OH vitamin D less than 20 ng/mL (1,2).The Endocrine Society went on to further define vitamin Dinsufficiency as a level between 21 and 29 ng/mL (2).1. IOM (Freedom of Medicine). 2010. Dietary reference intakes for calcium and D. [place]: The National Academies Press.2. Rachel MF, Yael NC, Dunia HERRERA, et al. Evaluation, treatment, and prevention of vitamin D deficiency: an Endocrine Society clinical practice guideline. JCEM. 2010; 96(7):1911-30. :29 HgA1C , Office (02652) HgA1C , Office 7.0 % (Normal) Range: 4.6 - 7.1 :14 B12 794 pg/mL (Normal) Range: 211-911 Comments: Effective 2012:14 VITD 37.5 ng/mL (Normal) Comments: Vitamin D 25(OH) Status RangeDeficiency <20 ng/mL (50nmol/L)Insufficiency 20 - 30 ng/mL (50 - 75 nmol/L)Sufficiency 30 - 100 ng/mL (75 - 250 nm ol/L)Toxicity >100 ng/mL (250 nmol/L)Effective 201201-Dec-20129-Igm-321506:13 CHEST PA AND LATERAL Radiology Report See [...] Tate D.O.December 01, 2012 at 12:40:54 PM [id number] Signed DS/DS If you are the referring physician and would like to consult with theradiologist who provided this i nterpretation, please contact Eulalio Tate D.O. at [phone]. If this radiologist is unavailable, you will bedirected to another radiologist to assist. If you are a patient with a question regarding t his report, pleasecontactyour referring physician directly. Professional Interpretation Provided By: Stream, Phone , These documents contain legally protected [...] arrange for the return or destructionofthese documents. Mei magaña on 12/01/12 1040 by Vijay Peterson DO on 12/01/12 1243 by ITS IMPORTSign by Nicholas Mack KEBEDE on 12/01/12 1244 Sign by: Mack Peterson DO 24-Ulu-556229:20 Upper Respiratory Culture Comments: PATIENT NOT FASTINGPERFORMED BY: LabCoSouthern Ocean Medical CenterMnlkpy6841 [facility] [id number] Information: SRC: THROAT Result 1 RRF (Normal) Comments: Routine respiratory alton Upper Respiratory Culture Final report (Normal) 96-Jhw-501987:06 Rapid Strep Test, Office (96134) Rapid Strep Test, Office Negative (Normal) 40-Mfx-365239:32 BILAT SCRN DIGITAL & CAD Radiology Report [...] Wayne M.D.November 18, 2012 at 12:51:57 PM [phone] Signed GP/GP If you are the referring physician and would like to consult with theradiologist who provid ed this interpretation, please contact Lee Claudio at [phone]. If this radiologist is unavailable, youwill be directed to another radiologist to assist. If you are a patient with a ques tion regarding this report, pleasecontactyour referring physician directly. Professional Interpretation Provided By: Stream, Phone , These documents contain legally pr [...] 11/18/12 1254 Sign by: Teo Wayne MD 2-Hmd-956299:24 URINE RANI CULTURE-IDENTIFICATN Comments: PATIENT NOT FASTINGPERFORMED BY: YouLike6370 [facility] [id number] Information: [id number] (55752) Result 1 MUG (Normal) Comments: Mixed urogenital flora10,000-25,000 colony forming units per mL Urine Final report (Normal) Culture,Comprehensive 12-Gpc-681912:50 METABOLIC PANEL, Comments: PATIENT NOT FASTINGPERFORMED BY: [facility] Qhprun5032 [facility] [id number] Information: ADD [id number] AND DRAW FEE 99 1453 COMPREHENSIVE (90205) ALT (SGPT) 14 [iU]/L (Normal) Range: 0-32 [...] Glucose, Serum 109 mg/dL (Abnormal) Range: 65-99 0-Mtz-446407:42 HgA1C , Office (67508) HgA1C , Office 6.3 % (Normal) Range: 4.6 - 7.1 :04 Microscopic Examination Comments: PATIENT NOT FASTINGPERFORMED BY: [facility] [id number] Bacteria Few (Normal) Mucus Threads Present (Normal) Cast Type Hyaline casts (Normal) Casts Present {/lpf} (Abnormal) Epithelial Cells (non renal) 0-10 {/hpf} (Normal) Range: 0 - 10 RBC 0-3 {/hpf} (Normal) Range: 0 - 3 WBC 6-10 {/hpf} (Abnormal) Range: 0 - 5 :04 VITAMIN B-12 (CYANOCOBALAMIN) Comments: PATIENT NOT FASTINGPERFORMED BY: [facility] [id number] (26577) Vitamin B12 1228 pg/mL (Abnormal) Range: 211-946 :04 Vitamin D Hydroxy (99588) Comments: PATIENT NOT FASTINGPERFORMED BY: [facility]Un[facility]in [place] [id number] Vitamin D, 25-Hydroxy 21.9 ng/mL (Abnormal) Range: 30.0-100.0 Comments: Vitamin D deficiency has been defined by the Freedom ofMedicine and an Endocrine Society practice guideline as alevel of serum 25-OH vitamin D less than 20 ng/mL (1,2).The Endocrine Society went on to further define vitamin Dinsufficiency as a level between 21 and 29 ng/mL (2).1. IOM (Freedom of Medicine). 2010. Dietary reference intakes for calcium and D. [place]: The National Academies Press.2. Rachel MF, Yael NC, Dunia HERRERA, et al. Evaluation, treatment, and prevention of vitamin D deficiency: an Endocrine Society clinical practice guideline. JCEM. 2010; 96(7):1911-30. :04 URINALYSIS, W/ MICRO (90076) Comments: PATIENT NOT FASTINGPERFORMED BY: YouLike[address] [facility] [id number] Microscopic Examination See below: (Normal) Nitrite, Urine Negative (Normal) Bilirubin Negative (Normal) Urobilinogen,Semi-Qn 0.2 mg/dL (Normal) Range: 0.0-1.9 Occult Blood Negative (Normal) Ketones Negative (Normal) Glucose Negative (Normal) Protein Negative (Normal) WBC Esterase 1+ (Abnormal) Appearance Clear (Normal) Urine-Color Yellow (Normal) pH 5.5 (Normal) Range: 5.0-7.5 Specific [place] 1.024 (Normal) Range: 1.005-1.030 :04 CBC WITH MANUAL DIFF Comments: PATIENT NOT FASTINGPERFORMED BY: [facility] Udilvf2156 [facility] [id number] Information: [id number] (39038) Immature Grans (Abs) 0.0 {x10E3/uL} (Normal) Range: [...] 3.77-5.28 WBC 7.2 {x10E3/uL} (Normal) Range: 4.0-10.5 40-Ejk-32436:04 METABOLIC PANEL, COMPREHENSIVE Comments: PATIENT NOT FASTINGPERFORMED BY: LabCoSouthern Ocean Medical CenterBnjatu2615 [facility] [id number] (33101) ALT (SGPT) 13 [iU]/L (Normal) Range: 0-32 [...] mg/dL (Abnormal) Range: 65-99 :04 LIPID PANEL (32576) Comments: PATIENT NOT FASTINGPERFORMED BY: [employer] [address] [id number] LDL Cholesterol Calc 103 mg/dL (Abnormal) Range: [...] pg/mL (Normal) Range: 211-946 Comments: Performed at: - [facility] [address] [id number] Director: Arnold Jefferson PhD, Phone: [phone] :[phone] CMP GAP 9 (Normal) Range: 5-15 [...] 250 nmol/L) Toxicity >100 ng/mL (250 nmol/L)Effective 201215-Aug-201218-Hsg-794057:20 Metabolic Panel, Basic Comments: PATIENT NOT FASTINGPERFORMED BY: [facility] FoodMunson Healthcare [facility]6370 [facility] [id number] Information: [id number] (90108) Calcium, Serum 10.2 mg/dL (Normal) Range: 8.6-10.2 [...] Glucose, Serum 99 mg/dL (Normal) Range: 65-99 0-Xlv-577882:24 Microscopic Examination Comments: PATIENT NOT FASTINGPERFORMED BY: [facility]6370 [facility] [id number] Bacteria Few (Normal) Mucus Threads Present (Normal) Epithelial Cells (non renal) 0-10 {/hpf} (Normal) Range: 0 - 10 RBC 0-3 {/hpf} (Normal) Range: 0 - 3 WBC 6-10 {/hpf} (Abnormal) Range: 0 - 5 3-Gdz-215426:24 Vitamin D Hydroxy (10351) Comments: PATIENT NOT FASTINGPERFORMED BY: [facility]6370 [facility] [id number] Vitamin D, 25-Hydroxy 21.7 ng/mL (Abnormal) Range: 30.0-100.0 Comments: Vitamin D deficiency has been defined by the Freedom ofMedicine and an Endocrine Society practice guideline as alevel of serum 25-OH vitamin D less than 20 ng/mL (1,2).The Endocrine Society went on to further define vitamin Dinsufficiency as a level between 21 and 29 ng/mL (2).1. IOM (Freedom of Medicine). 2010. Dietary reference intakes for calcium and D. [place]: The National Academies Press.2. Rachel MF, Yael MARLEY, Dunia HERRERA, et al. Evaluation, treatment, and prevention of vitamin D deficiency: an Endocrine Society clinical practice guideline. JCEM. 2010; 96(7):1911-30. 9-Oda-160658:24 VITAMIN B-12 (CYANOCOBALAMIN) Comments: PATIENT NOT FASTINGPERFORMED BY: [employer] [place] [id number] (61760) Vitamin B12 431 pg/mL (Normal) Range: 211-946 :24 URINALYSIS, W/ MICRO (18469) Comments: PATIENT NOT FASTINGPERFORMED BY: [employer]70 [facility] [id number] Microscopic Examination MICRON (Normal) Comments: Microscopic follows if indicated. Microscopic Examination See below: (Normal) Nitrite, Urine Negative (Normal) Urobilinogen,Semi-Qn 0.2 mg/dL (Normal) Range: 0.0-1.9 Bilirubin Negative (Normal) Ketones Negative (Normal) Occult Blood Negative (Normal) Glucose Negative (Normal) Protein Negative (Normal) WBC Esterase Negative (Normal) Appearance Clear (Normal) pH 6.5 (Normal) Range: 5.0-7.5 Urine-Color Yellow (Normal) Specific [place] 1.022 (Normal) Range: 1.005-1.030 :24 CBC WITH MANUAL DIFF Comments: PATIENT NOT FASTINGPERFORMED BY: YouLike6370 [facility] [id number] Information: [id number] (88497) Immature Grans (Abs) 0.0 {x10E3/uL} (Normal) Range: [...] 3.77-5.28 WBC 7.9 {x10E3/uL} (Normal) Range: 4.0-10.5 7-Tqa-369402:24 METABOLIC PANEL, COMPREHENSIVE Comments: PATIENT NOT FASTINGPERFORMED BY: LabCoSouthern Ocean Medical CenterOoyejd7160 [facility] [id number] (63027) ALT (SGPT) 16 [iU]/L (Normal) Range: 0-32 [...] Glucose, Serum 107 mg/dL (Abnormal) Range: 65-99 9-Wdo-725592:24 TSH (66811) Comments: PATIENT NOT FASTINGPERFORMED BY: Loved.laEastern New Mexico Medical CenterKvljhf0473 [facility] [id number] TSH 2.000 {uIU/mL} Range: 0.450-4.500 (Normal) CCP Antibodies IgG/IgA 1 {units} (Normal) Comments: PATIENT NOT FASTINGPERFORMED BY: [facility] RadiotherapyEastern [facility] Mexico Medical CenterJzjkgz6944 [facility] [id number] BY: Loved.la[address] [id number] :39 Range: 0-19 Comments: Negative <20 Weak positive 20 - 39 Moderate positive 40 - 59 Strong positive >59 4-Fxv-868484:39 Systemic Lupus Profile Comments: PATIENT NOT FASTINGPERFORMED BY: Loved.laSouthern Ocean Medical CenterSzakfh3499 [facility] [id number] BY: [employer] [id number] Information: [id number] (47856) Anti-DNA (DS) Ab Qn <1 {IU/mL} (Normal) Range: 0-9 Comments: Negative <5 Equivocal 5 - 9 Positive >9 Sjogren's Anti-SS-B 0.5 {AI} (Normal) Range: 0.0-0.9 Sjogren's Anti-SS-A 0.3 {AI} (Normal) Range: 0.0-0.9 Antichromatin Antibodies <0.2 {AI} (Normal) Range: 0.0-0.9 RA Latex Turbid. 8.5 {IU/mL} (Normal) Range: 0.0-13.9 [place] Antibodies <0.2 {AI} (Normal) Range: 0.0-0.9 CRIPPLE CHASER Antibodies <0.2 {AI} (Normal) Range: 0.0-0.9 :27 HgA1C , Office (04803) HgA1C , Office 6.2 % (Normal) Range: 4.6 - 7.1 :27 Blood Glucose , Office (15075) Blood Glucose , Office 108 (Normal) :45 [...] D deficiency has been defined by the Freedom ofMedicine and an Endocrine Society practice guideline as alevel of serum 25-OH vitamin D less than 20 ng/mL (1,2).The Endocrine Society went on to further define vitamin Dinsufficiency as a level between 21 and 29 ng/mL (2).1. IOM (Freedom of Medicine). 2010. Dietary reference intakes for calcium and D. [place]: The National Academies Press.2. Rachel MF, Yael NC, Markus-Kenny HERRERA, et al. Evaluation, treatment, and prevention of vitamin D deficiency: an Endocrine Society clinical practice guideline. JCEM. 2010; 96(7): 1911-30.Performed at: [facility] Lab[address] [id number] Director: Arnold Jefferson PhD, Phone: [phone] 85-Pfr-068103:59 Blood Glucose , Office (55165) Blood Glucose , Office 131 (Normal) 72-Qql-200565:58 HgA1C , Office (77465) HgA1C , Office 6.8 % (Normal) Range: [...] 4.2-5.4 WBC 7.0 K/mm3 (Normal) Range: 4.4-11.0 23-Oov-975606:12 CMP GAP 10 (Normal) Range: 5-15 CO2 [...] mg/dL suggests DIABETES MELLITUS per A.D.A. criteria. :12 LIPID LDL 104 mg/dL (Normal) Range: 0-130 [...] D deficiency has been defined by the Freedom ofMedicine and an Endocrine Society practice guideline as alevel of serum 25-OH vitamin D less than 20 ng/mL (1,2).The Endocrine Society went on to further define vitamin Dinsufficiency as a level between 21 and 29 ng/mL (2).1. IOM (Freedom of Medicine). 2010. Dietary reference intakes for calcium and D. [place]: The National Academies Press.2. Rachel MF, Yael MARLEY, Dunia HERRERA, et al. Evaluation, treatment, and prevention of vitamin D deficiency: an Endocrine Society clinical practice guideline. JCEM. 2010; 96(7): 1911-30.Performed at: [place] [id number] [place], [place] [id number] Director: Tona Emmanuel MD, Phone: [phone] 53-Bit-334671:15 HgA1C , Office (37712) HgA1C , Office 5.8 % (Normal) Range: 4.6 - 7.1 41-Yqe-729426:15 Blood Glucose , Office (35089) Blood Glucose , Office 113 (Normal) :30 [...] D deficiency has been defined by the Freedom ofMedicine and an Endocrine Society practice guideline as alevel of serum 25-OH vitamin D less than 20 ng/mL (1,2).The Endocrine Society went on to further define vitamin Dinsufficiency as a level between 21 and 29 ng/mL (2).1. IOM (Freedom of Medicine). 2010. Dietary reference intakes for calcium and D. [place]: The National Academies Press.2. Rachel MF, Yael MARLEY, Dunia HERRERA, et al. Evaluation, treatment, and prevention of vitamin D deficiency: an Endocrine Society clinical practice guideline. JCEM. 2010; 96(7): 1911-30.Performed at: [address] [id number] Director: Tona Emmanuel MD, Phone: [phone] 26-Kry-081164:02 CTA NECK W/WO CONTRAST Radiology Report See [...] ologist regarding this report, please call our [id number] line @ Dictated on 10/08/11 [address]ER,Loraribed on 10/09/11 0856 by ITS IMPORTSign by Juana Wayne MD on 10/09/11 0857 Sign by: Teo Wayne MD 27-Vdy-968770:00 BILAT SCRN DIGITAL & CAD Radiology Report [...] radiologist regarding this report, please call our 44G8ztvpqpl line @ Dictated on 09/18/11 1040 by Ori clifton MD,Loraribed on 09/20/11 0901 by ITS IMPORTSign by Teo Wayne MD on 09/20/11 0902 Sign by: Hema STREETERTeo 78-Ybv-42212:59 DEXA BONE DENSITY STUDY () Radiology Report See Note (Normal) Comments: PROCEDURE: [...] regarding this re port, please call our 33T4jamwunw line @ Dictated on 09/18/11 [address]ER,GeeriNoahranscribed on 09/19/11 1416 by ITS IMPORTSign by Hema STREETER,Teo on 09/19/11 1417 Sign by: Teo Wayne MD 22-Hfb-235139:17 HgA1C , Office (74123) HgA1C , Office 5.9 % (Normal) Range: 4.6 - 7.1 46-Zow-243601:17 Blood Glucose , Office (16793) Blood Glucose , Office 77 (Normal) :44 [...] >240 mg/dL High Risk :44 VIT D,25 34236 22.3 ng/mL (Abnormal) Range: 30.0-100.0 Comments: Vitamin D deficiency has been defined by the Freedom ofMedicine and an Endocrine Society practice guideline as alevel of serum 25-OH vitamin D less than 20 ng/mL (1,2).The Endocrine Society went on to further define vitamin Dinsufficiency as a level between 21 and 29 ng/mL (2).1. IOM (Freedom of Medicine). 2011. Dietary reference intakes for calcium and D. [place]: The National Academies Press.2. Rachel MF, Yael NC, uDnia HERRERA, et al. Evaluation, treatment, and prevention of vitamin D deficiency: an Endocrine Society clinical practice guideline. JCEM. 2010; 96(6): 1911-30.Performed at: - [facility] [id number] Director: Tona Emmanuel MD, Phone: [phone] :[phone] HgA1C , Office (49341) HgA1C , Office 6.6 % (Normal) Range: 4.6 - 7.1 :34 Blood Glucose , Office (74326) Blood Glucose , Office 116 (Normal) :50 [...] Range: 4.4-11.0 :50 COMP METABOLIC Comments: appt 46375 GAP 10 (Normal) Range: 5-15 CO2 26.0 [...] {uIU/mL} (Normal) Range: 0.358-3.74 :50 VIT D,25 94148 41.3 ng/mL (Normal) Range: 32.0-100.0 Comments: Effective June 18, 2011 Vitamin D, 25-Hydroxy reference intervals will be changing to 30-100. .Recent studies consider the lower li lalo of 32.0 ng/mL to be athreshold for optimal health.Pepito ANNE. J Nutr. 2004;135(2):317-22.Performed at: [facility] Loved.la[address] [id number] Director: Tona Emmanuel MD, Phone: [phone] :[phone] VITAMIN B12 806 pg/mL (Normal) Range: [...] Panel (14) Comments: PATIENT WAS FASTINGPERFORMED BY: Loved.la[address] [id number] ALT (SGPT) 40 [iU]/L (Normal) Range: 0-40 [...] With LDL/HDL Comments: PATIENT WAS FASTINGPERFORMED BY: [facility] [id number] Ratio LDL Cholesterol Calc 74 mg/dL (Normal) [...] 0.192 {uIU/mL} Comments: PATIENT WAS FASTINGPERFORMED BY: [facility] [id number] 09 (Abnormal) Range: 0.450-4.500 : Vitamin B12 417 pg/mL (Normal) Comments: PATIENT WAS FASTINGPERFORMED BY: [facility] [id number] Range: 211-946 75-Kuw-475095:22 UNILAT LT DIAG DIGITAL & CAD Radiology [...] 02/23/11 1511 Sign by: Teo Wayne MD 01-Lig-04475:58 CBCD,SMEAR DIFF Comments: appt 10/24/10 RED CELL [...] {uIU/mL} (Abnormal) Range: 0.358-3.74 :58 VIT D,25 59779 22.0 ng/mL (Abnormal) Comments: appt 10/24/10 Range: 32.0-100.0 Comments: Recent studies consider the lower limit of 32.0 ng/mL to tammy threshold for optimal health.Pepito ANNE. J Nutr. 2004;135(2):317-22.Performed at: - [facility] [place] [id number] Director: Tona Emmanuel MD, Phone: [phone] :58 VITAMIN B12 285 pg/mL (Normal) Range: [...] CYTYC Thin Prep VialPATIENT NOT FASTINGPERFORMED BY: [facility] [id number] Information: [id number] (37787) Note: PAPSMR (Normal) Comments: The Pap smear [...] for malignant neoplasm of the cervixMattsteve Montes Auto Electrical Technician (ASCP) 15-Ees-081878:26 BREAST UNILATERAL Radiology Report See Note (Normal) [...] on 08/28/10 1453 Sign by: ANTHONY PALOMARES 71-Ixk-326124:58 UNILAT LT DIAG DIGITAL & CAD Radiology [...] Category 3: Probably Benign Finding - Initial Mcoxx-EgglekzvXxwwhc-pv Suggested. A letter regarding these results will be sent tothepatient by the facility within 30 days. Approximately 10% of breast cancers are not detected by mammography. Anormal mammogram should not delay biopsy of a clinically suspiciousabnormality. Dictated on 08/24/10 1206 by ANTHONY PALOMARESTranscribed on 08/24/10 135 by ITS IMPORTSign by ANTHONY PALOMARES on 08/24/101351 Sign by: ANTHONY PALOMARES 24-Ngp-47230:43 BILAT SCRN DIGITAL & CAD Radiology Report [...] on 08/18/101451 Sign by: ANTHONY PALOMARES MD 5-Fmk-113700:14 HgA1C , Office (33113) HgA1C , Office 6.5 % (Normal) Range: 4.6 - 7.1 :14 Blood Glucose , Office (53068) Blood Glucose , Office 176 (Normal) :30 [...] CREAT 161.2 mg/dL (Normal) : VIT D,25 88709 27.7 ng/mL Range: 32.0-100.0 30 (Abnormal) Comments: Recent studies consider the lower limit of 32.0 ng/mL to tammy threshold for optimal health.Pepito ANNE. J Nutr. 2004;135(2):317- 22.Performed at: [facility] LabCoGordon [place] [address]Lab Director: Tona Emmanuel MD, Phone: [phone] : VITAMIN B12 449 pg/mL (Normal) Range: [...] {units} (Normal) Comments: PATIENT NOT FASTINGPERFORMED BY: [employer] [id number] BY: [address] [id number] 0:44 Range: 0-19 Comments: Negative <20 Weak positive 20 - 39 Moderate positive 40 - 59 Strong positive >59 Comment: SPRCS (Normal) Comments: PATIENT NOT FASTINGPERFORMED BY: [facility] FoodMun[facility] [place] [address] [id number] BY: [address] [id number] 0:44 Comments: Effective April 25, 2009 order code 380256 CCP IgGAntibodies has been replaced due to an updated reagentversion 3.1. For this reason [facility] has provided youwith a new order code [id number] CCP Antibodies IgG/IgA. 11-Xfj-882683:44 Vitamin D Hydroxy Comments: PATIENT NOT FASTINGPERFORMED BY: [facility] [employer] FoodM[facility]6370 [facility] [id number] BY: [address] [id number] (62110) Vitamin D, 25-Hydroxy 30.9 ng/mL (Abnormal) Range: 32.0-100.0 Comments: Recent studies consider the lower limit of 32.0 ng/mL to be athreshold for optimal health.Pepito ANNE. J Nutr. 2004;135(2):317-22. 19-Xdr-787824:44 SED RATE ERYTHROCYTE Comments: PATIENT NOT FASTINGPERFORMED BY: [address] [id number] BY: [address] [id number] (82187) Sedimentation Rate-Westergren 4 mm/h (Normal) Range: 0-30 40-Yhg-125431:44 C-REACTIVE PROTEIN Comments: PATIENT NOT FASTINGPERFORMED BY: [address] [id number] BY: [address] [id number] (31111) C-Reactive Protein, Quant 2.5 mg/L (Normal) Range: 0.0-4.9 82-Sde-070982:44 TSH (97858) Comments: PATIENT NOT FASTINGPERFORMED BY: Lab[address] [id number] BY: [address] [id number] TSH 2.050 {uIU/mL} (Normal) Range: 0.450-4.500 22-Tit-360475:44 RHEUMATOID FACTOR-QUANT Comments: PATIENT NOT FASTINGPERFORMED BY: [place] [address] [facility] [id number] BY: [address] [id number] (40113) RA Latex Turbid. 8.4 {IU/mL} (Normal) Range: 0.0-13.9 46-Usj-150822:44 MEIL (ANTINUCLEAR ANTIBODY) Comments: PATIENT NOT FASTINGPERFORMED BY: LabRickey [place] [address]757270 [facility] [id number] BY: [address] [id number] (45345) MELI Direct Negative (Normal) 81-Ujm-757272:44 CBC WITH MANUAL DIFF Comments: PATIENT NOT FASTINGPERFORMED BY: [place] [address] [facility] [id number] BY: [address] [id number] Inf ormation: ADD [id number] AND DRAW FEE 99 8567 (67724) Immature Grans (Abs) 0.0 {x10E3/uL} (Normal) Range: [...] 3.80-5.10 WBC 6.8 {x10E3/uL} (Normal) Range: 4.0-10.5 43-Fbg-718671:44 METABOLIC PANEL, Comments: PATIENT NOT FASTINGPERFORMED BY: CB [facility] Mipcog9958 [facility] [id number] BY: BN [facility] [address] [id number] COMPREHENSIVE (22928) ALT (SGPT) 21 [iU]/L (Normal) Range: 0-40 [...] (Abnormal) Range: 65-99 :33 HgA1C , Office (72598) HgA1C , Office 6.8 % (Normal) Range: 4.6 - 7.1 :33 Blood Glucose , Office (22910) Blood Glucose , Office 135 (Normal) :22 [...] CHOL 157 mg/dL (Normal) Comments: <200 mg/dL Lqosuyfuv270-228 mg/dL Borderline>240 mg/dL High Risk :22 LIVER ALB 3.5 g/dL (Normal) Range: 3.4-5.0 ALK P 97 U/L (Normal) Range: 50-136 ALT 21 U/L (Normal) Range: 12-78 AST 16 U/L (Normal) Range: 15-37 D BILI 0.12 mg/dL (Normal) Range: 0.00-0.30 T BILI 0.40 mg/dL (Normal) Range: 0.00-1.00 T PROT 6.5 g/dL (Normal) Range: 6.4-8.2 :22 TSH 1.54 {uIU/mL} Range: 0.358-3.74 (Normal) :22 VIT D,25 70892 36.8 ng/mL (Normal) Range: 32.0-100.0 Comments: Recent studies consider the lower limit of 32.0 ng/mL to tammy threshold for optimal health.Pepito ANNE. J Nutr. 2004;135(2):317-22.Performed at: [employer] [place] [id number] 296Lab Director: Tona Emmanuel MD, Phone: [phone] :22 VITAMIN B12 264 pg/mL (Normal) Range: 254-1320 Comments: There is a low frequency possibility that high titers ofintrinsic blocking antibodies may not be completelyinactivated during the reaction pretreatment stepof this testing method. If test results are in conflictwith the clinical diagnosis, patient should be testedfor the presence of intrinsic factor blocking antibodies. : Amylase, Serum 92 U/L (Normal) Comments: PERFORMED BY: [facility] [address] [id number] Range: 31-124 54-Cjx-533393:34 CBC With Differential/Platelet Comments: PERFORMED BY: [facility] CenterAqkfwq0402 [facility] [id number] Baso (Absolute) 0.0 {x10E3/uL} (Normal) Range: 0.0-0.2 [...] 3.80-5.10 WBC 7.5 {x10E3/uL} (Normal) Range: 4.0-10.5 :34 Comp. Metabolic Panel (14) Comments: PERFORMED BY: [facility] CenterBentbx5113 [facility] [id number] ALT (SGPT) 18 [iU]/L (Normal) Range: 0-40 [...] Serum 57 U/L (Normal) Comments: PERFORMED BY: [facility]6370 [facility] [id number] 13:34 Range: 0-59 03-Feb-20109:00 [employer] Radiology Report See Note (Normal) Comments: Exam Number: [id number] CLINICAL:Epigastric pain and bloating. ABDOMINAL ULTRASOUND TECHNIQUE:Transabdominal [...] hydronephrosis,etiology indeterminate. Reported By: KATHRYN MUNOZ M.D. 3-Irg-724646:19 CBC WITH MANUAL DIFF Comments: PATIENT NOT FASTINGPERFORMED BY: [facility]Co[facility] CenterOihuxo0464 [facility] [id number] Information: [id number] (14994) Baso (Absolute) 0.1 {x10E3/uL} (Normal) Range: 0.0-0.2 [...] 3.80-5.10 WBC 9.9 {x10E3/uL} (Normal) Range: 4.0-10.5 0-Fxy-805901:19 METABOLIC PANEL, COMPREHENSIVE Comments: PATIENT NOT FASTINGPERFORMED BY: [facility] CenterBzwqry3445 [facility] [id number] (12727) ALT (SGPT) 19 [iU]/L (Normal) Range: 0-40 [...] Report See Note (Normal) Comments: Exam Number: [id number] CLINICAL:This is a 69-year-old female patient with [...] as discussed above. Reported By: TEO WAYNE 0-Fla-361447:12 HgA1C , Office (72657) HgA1C , Office 7.1 % (Normal) Range: 4.6 - 7.1 1-Azr-270131:12 Blood Glucose , Office (86336) Blood Glucose , Office 129 (Normal) :45 [...] CHOL 155 mg/dL (Normal) Comments: <200 mg/dL Nkszvqtgu728-829 mg/dL Borderline>240 mg/dL High Risk :45 VIT D,25 82321 42.5 ng/mL (Normal) Range: 32.0-100.0 Comments: Recent studies consider the lower limit of 32.0 ng/mL to tammy threshold for optimal health.Pepito ANNE. J Nutr. 2004;135(2):317-22.Performed at: - [facility] [id number] Director: Tona Emmanuel MD :53 LIPID HDL [...] CHOL 128 mg/dL (Normal) Comments: <200 mg/dL Slacfduso542-430 mg/dL Borderline>240 mg/dL High Risk :53 MICROALB:CRE UR MALB:CREAT 19.1 {mg/g_CRE} (Normal) MICROALBUMIN,UR 29.1 mg/L (Normal) UR CREAT 152.0 mg/dL (Normal) :53 TSH 0.93 {uIU/mL} (Normal) Range: 0.358-3.74 :53 VIT D,25 87390 22.7 ng/mL (Abnormal) Range: 32.0-100.0 Comments: Recent studies consider the lower limit of 32.0 ng/mL to tammy threshold for optimal health.Pepito ANNE. J Nutr. 2004;135(2):317-22.Performed At: [address] [id number] :53 VITAMIN B12 337 pg/mL (Normal) Range: 254-1320 :09 HgA1C , Office (45899) HgA1C , Office 7.1 % (Normal) Range: 4.6 - 7.1 :09 Blood Glucose , Office (36516) Blood Glucose , Office 108 (Normal) 1-Wzf-037915:33 KNEE,4 OR MORE VIEWS (MT) Radiology Report See Note (Normal) Comments: Exam Number: [id number] CLINICAL:Pain X-RAY EXAMINATION RIGHT KNEE TECHNIQUE:Three view(s) [...] Report See Note (Normal) Comments: Exam Number: [id number] CLINICAL:Pain X-RAY EXAMINATION: RIGHT TIBIA AND FIBULA [...] (MT) Radiology See Note Comments: Exam Number: [id number] CLINICAL:Pain X-RAY EXAMINATION: RIGHT FEMUR TECHNIQUE:Two views [...] Visualized femur. Reported By: RAYMOND ARRIAGA M.D. :43 UNILAT LT DIAG DIGITAL & CAD Radiology Report See Note (Normal) Comments: Exam Number: [id number] MAMMOGRAM, UNILATERAL LEFT DIAGNOSTIC DIGITAL AND CAD HISTORYAbnormal mammogram, left breast. TECHNIQUEFull field digital images were obtained in left true lateral, rolledcranio caudal, and spot mediolateral oblique and craniocaudalprojections. CAD images were reviewed. The current study is compared to the examinations of March 12, 2006,and June 21, 2009. FINDINGSThere is a lwujkmiq-ad-waumib extent of fibroglandular parenchymapresent. There is no [...] wereal so examined with computer-aided detection software (SystematicBytes, Order Mapper, Techo[employer].). Reported By: ANTHONY PALOMARES M.D. 71-Nkk-466948:04 [facility] DIGITAL & CAD Radiology Report See Note (Normal) Comments: Exam Number: [id number] MAMMOGRAM, BILATERAL SCREENING DIGITAL AND CAD HISTORYRoutine [...] werealso examined with computer- aided detection software (Systematic[employer], Order [employer]apper, Inc.). Reported By: ANTHONY PALOMARES M.D. 06-Wcs-737642:03 DEXA BONE DENSITY STUDY () Radiology Report See Note (Normal) Comments: Exam Number: [id number] BONE DENSITOMETRY HISTORYOsteopenia. TECHNIQUE Bone densitometry of the lumbar spine and both hips is now beingperformed. The best criteria for evaluation of osteoporosis is theT-value, which represents the comparison of the patient's bone mass flako expected peak bone mass. For most patients, the mean T-value of V9iyjhiry L4 is used to evaluate the lumbar spine. To evalua te the hip,the lower T-value of the femoral neck or total hip is used. FINDINGSIn this patient, the mean T-value of L1 through L4 is 0.3 which isnormal. Bone mineral density is measured at 18.3% greate r than tr0812.Digital lateral view for evaluation of vertebral deformity [...] within normallimits. Reported By: ANTHONY PALOMARES M.D. 94-Pja-408179:09 BRAIN/HEAD W/WO CONTRAST Radiology Report See Note (Normal) Comments: Exam Number: [id number] CLINICAL:69 year old female with altered mental [...] CREAT 123.4 mg/dL (Normal) 07-Jun-2009 VIT D,25 31550 19.7 ng/mL Range: 32.0-100.0 9:02 (Abnormal) Comments: Recent studies consider the lower limit of 32.0 ng/mL to tammy threshold for optimal health.Pepito ANNE. J Nutr. 2004;135(2):317- 22.Performed At: [facility] [place], [place] [id number] 07-Jun-2009 VITAMIN B12 328 pg/mL (Normal) Range: 254-1320 9:02 11-Feb-2009 Homocyst(e)ine, Plasma 9.8 umol/L (Normal) Comments: PERFORMED BY: [address] [id number] 14:28 Range: 0.0-15.0 11-Feb-2009 Methylmalonic Acid, 336 nmol/L (Normal) Comments: PERFORMED BY: [employer] [address] [id number] 14:28 Serum Range: 73-376 Comments: The reference range for methylmalonic acid has been set at +3sd abovethe mean for healthy blood bank donors. In the clinical assessment ofpatients with megaloblastic anemias a cutoff of +3sd provides gr eaterspecificity in the diagnosis of the vitamin deficiency states,despite the sacrifice of some sensitivity. 11-Feb-2009 TSH 2.700 {uIU/mL} Comments: PERFORMED BY: [address] [id number] 14:28 (Normal) Range: 0.450-4.500 11-Feb-2009 Vitamin B12 231 pg/mL (Normal) Comments: PERFORMED BY: [facility] [id number] 14:28 Range: 211-911 1-Dka-736761:09 HAND,MIN 3 VIEWS (MT) Radiology Report See Note (Normal) Comments: Exam Number: [id number] RIGHT WRIST CLINICAL DATAFell and injured the [...] osteoarthritis right hand. Reported By: FERNANDO TUCKER 9-Ffe-482010:09 WRIST,MIN 3 VIEWS (MT) Radiology Report See Note (Normal) Comments: Exam Number: [id number] RIGHT WRIST CLINICAL DATAFell and injured the [...] PANEL, COMPREHENSIVE Comments: PATIENT WAS FASTINGPERFORMED BY: [facility]6370 [facility] [id number] (49007) A/G Ratio 1.9 (Normal) Range: 1.1-2.5 Albumin, [...] 141 mmol/L (Normal) Range: 135-145 :42 TSH (03575) Comments: PATIENT WAS FASTINGPERFORMED BY: [facility].laSouthern Ocean Medical CenterQuuuxz3189 [facility] [id number] TSH 4.980 {uIU/mL} (Abnormal) Range: 0.450-4.500 :42 MICROALBUMIN: CREATININE RATIO Comments: PATIENT WAS FASTINGPERFORMED BY: [facility].laSouthern Ocean Medical CenterVuazyp7535 [facility] [id number] (47287) AND (56504) Creatinine, Urine 130.9 mg/dL (Normal) Range: 15.0-278.0 Microalb/Creat Ratio 66.4 {ug/mg_creat} (Abnormal) Range: 0.0-30.0 Microalbumin, Urine 86.9 ug/mL (Abnormal) Range: 0.0-17.0 :42 LIPID PANEL (76445) Comments: PATIENT WAS FASTINGPERFORMED BY: [facility] Vkhgfb1202 [facility] [id number] Cholesterol, Total 148 mg/dL (Normal) Range: 100-199 HDL Cholesterol 42 mg/dL (Normal) Comments: According to ATP-III Guidelines, HDL-C >59 mg/dL is considered anegative risk factor for CHD. LDL Cholesterol Calc 78 mg/dL (Normal) Range: 0-99 LDL/HDL Ratio 1.9 {ratio_units} (Normal) Range: 0.0-3.2 Triglycerides 141 mg/dL (Normal) Range: 0-149 VLDL Cholesterol Priscilla 28 mg/dL (Normal) Range: 5-40 :42 CBC WITH MANUAL DIFF (53346) Comments: PATIENT WAS FASTINGClinical Information: ADD DRAW FEE [id number] ADD J 89405 PERFORMED BY: [facility] Deoirb0420 [facility] [id number] Baso (Absolute) 0.1 {x10E3/uL} (Normal) Range: 0.0-0.2 [...] B-12 (CYANOCOBALAMIN) Comments: PATIENT WAS FASTINGPERFORMED BY: [facility]CoSouthern [facility] CenterIqyjar9883 [facility] [id number] (86976) Vitamin B12 232 pg/mL (Normal) Range: 211-911 4-Nxm-874382:06 Blood Glucose , Office (26637) Blood Glucose , Office 155 (Normal) :27 [...] (Normal) Range: 0.34-4.82 :27 HgA1C , Office (37828) Comments: done>Wf. HgA1C , Office 6.2 % (Normal) Range: 4.6 - 7.1 :27 Blood Glucose , Office (88633) Comments: done>Wf. Blood Glucose , Office 152 [...] for patient's is the eGFRmultiplied by 1.212. [facility] Laboratory uses the abbreviated Modification of [...] Disease W/O Kidney Disease>/= 90 Stage One Ibwyxa90 - 89 Stage Two Suspect Decrease d [...] T PROT 7.3 g/dL (Normal) Range: 6.4-8.2 7-Nrh-972181:55 LIPID CHOL 287 mg/dL (Abnormal) Comments: <200 [...] mg/dL VLDL 50 mg/dL (Abnormal) Range: -40 :55 MICROALB:CRE UR MALB:CREAT 28.3 {mg/g_CRE} (Normal) MICROALBUMIN,UR 41.7 mg/L (Normal) UR CREAT 147.6 mg/dL (Normal) :55 TSH 5.53 {uIU/mL} (Abnormal) Range: 0.34-4.82 27-Uyc-975376:25 TSH 0.16 {uIU/mL} (Abnormal) Range: 0.34-4.82 :31 HgA1C , Office (73925) Comments: done HgA1C , Office 6.5 % (Normal) Range: 4.6 - 7.1 :31 Blood Glucose , Office (08768) Comments: done Blood Glucose , Office 128 (Normal) :01 TSH 5.15 {uIU/mL} (Abnormal) Range: 0.34-4.82 :12 HgA1C , Office (38136) Comments: done HgA1C , Office 6.2 % (Normal) Range: 4.6 - 7.1 :12 Blood Glucose , Office (53894) Comments: done Blood Glucose , Office 187 [...] Serum 117 ng/mL (Normal) Comments: PERFORMED BY: [facility] [id number] Range: 10-291 :33 Iron and TIBC Comments: PERFORMED BY: [facility] [id number] Iron Bind.Cap.(TIBC) 304 ug/dL (Normal) Range: 250-450 Iron Saturation 26 % (Normal) Range: 15-55 Iron, Serum 78 ug/dL (Normal) Range: 35-155 UIBC 226 ug/dL (Normal) Range: 150-375 : Vitamin B12 412 pg/mL (Normal) Comments: PERFORMED BY: [facility] [id number] 33 Range: 211-911 :56 LIPID CHOL 222 [...] (Normal) Range: 6.4-8.2 :07 HgA1C , Office (27732) Comments: done HgA1C , Office 5.9 % (Normal) Range: 4.6 - 7.1 :07 Blood Glucose , Office (43388) Comments: done Blood Glucose , Office 132 [...] mg/dL (Abnormal) Range: 34-200 Comments: Performed At: [address] [id number] IRON+TIBC IRON SATURATION 17.9 % (Normal) [...] mg/dL (Normal) Range: 34-200 Comments: Performed At: [address] [id number] :56 IRON+TIBC IRON SATURATION 17.1 % (Normal) [...] '3', OR 'R' FOR RANDOM: 3 Range: :15 CPKMB 0.5 ng/mL (Normal) Comments: Precautions*: [...] <or= 4 AMI > 5 > 4 3-Oms-958197:05 TROPONIN-I < 0.04 ng/mL (Normal) Comments: Precautions*: [...] 1.50 SUGGEST AR :48 HgA1C , Office (95099) HgA1C , Office 6.4 % (Normal) Range: 4.6 - 7.1 :48 Blood Glucose , Office (93591) Blood Glucose , Office 113 (Normal) Plan of Care Name Dates Details Instructions Other anxiety states : Follow up in 4 weeks Indication: Other anxiety states Sciatica, unspecified laterality : Reviewed Diagnostic Tests Indication: Sciatica, unspecified laterality Other anxiety states : Follow up in [...] Indication: Double vision Double vision : Reviewed Medical Insurance Claims Processor Letter Indication: Double vision Fatty liver : [...] BMI 36.0-36.9,adult Right hip pain : Reviewed Medical Insurance Claims Processor Letter Indication: Right hip pain Right hip [...] (monoclonal gammopathy of unknown significance) : Reviewed Medical Insurance Claims Processor Letter- stable and discharged from onc Indication: [...] Fall down steps, initial encounter : Reviewed Medical Insurance Claims Processor Letter Indication: Fall down steps, initial encounter [...] infarction, unspecified Cerebral infarction, unspecified : Reviewed Medical Insurance Claims Processor Letter Indication: Cerebral infarction, unspecified Upper respiratory [...] Planned Observations CBC, PLATELETS & AUT DIFF (29882)Indication: Other vitamin B12 deficiency anemia On: :17 Request TSH (71810)Indication: Abnormal TSH On: :38 Request T4, FREE (THYROXINE) (16721)Indication: Abnormal TSH On: :38 Request T3, FREE (TRIDOTHYRONINE) (49886)Indication: Abnormal TSH On: :38 Request ANTI-LIVER/KIDNEY MICROSOMAL ANTIBODY (02564)Indication: Elevated liver enzymes On: 56-Wef-441942:34 Request TSH (45192)Indication: Abnormal TSH On: 52-Rbh-059332:31 Request T4, FREE (THYROXINE) (72203)Indication: Abnormal TSH On: 38-Hhq-123987:31 Request T3, FREE (TRIDOTHYRONINE) (10856)Indication: Abnormal TSH On: 02-Wya-821092:31 Request BETA-2 MICROGLOBULIN (73161)Indication: Abnormal blood chemistry On: 14-Qfx-316578:08 Request Urinalysis, Office (03328)Indication: Urinary frequency On: 80-Ezq-150469:38 Request CBC WITH MANUAL DIFF (88377)Indication: Therapeutic drug monitoring On: :57 Request Metabolic Panel, Basic (46006)Indication: Therapeutic drug monitoring On: :57 Request Methymalonic Acid, Serum (26264)Indication: Vitamin B 12 deficiency On: 50-Xkr-849588:51 Request CALCIFIDIOL (82032) VIT D 25Indication: Vitamin D deficiency, unspecified On: :45 Request LIPID PANEL (99678)Indication: Other and unspecified hyperlipidemia On: :45 Request CALCIFIDIOL (19431) VIT D 25Indication: Uncontrolled type II diabetes mellitus On: :46 Request TSH (26718)Indication: Uncontrolled type II diabetes mellitus On: :46 Request URINALYSIS, W/ MICRO (05743)Indication: Uncontrolled type II diabetes mellitus On: :46 Request MICROALBUMIN: CREATININE RATIO (42122) AND (26296)Indication: Uncontrolled type II diabetes mellitus On: :46 Request METABOLIC PANEL, COMPREHENSIVE (11199)Indication: Uncontrolled type II diabetes mellitus On: :46 Request LIPID PANEL (98622)Indication: Uncontrolled type II diabetes mellitus On: :45 Request CBC W/AUTO DIFF WBC (27284)Indication: Uncontrolled type II diabetes mellitus On: :45 Request Rapid Flu (20102 x 2)Indication: Flu-like symptoms On: 41-Zxt-635740:12 Request VITAMIN B-12 (CYANOCOBALAMIN) (62970)Indication: Vitamin B 12 deficiency On: 62-Ckn-043773:45 Request FECAL OCCULT- Tubes sent home (73039)Indication: Encounter for screening for malignant neoplasm of colon (Renamed from Special screening for malignant neoplasms, colon) On: 55-Oqe-197479:35 Request THYROXINE FREE (72162)Indication: Tachycardia On: 6-Ktb-290883:04 Request FREE TRIDOTHYRONINE (T3) (09040)Indication: Tachycardia On: 5-Fzb-457931:04 Request TSH (THYROID STIMULATING HORMONE) (60566)Indication: Tachycardia On: 3-Hik-962475:04 Request serum immunofixation (36603)Indication: MGUS (monoclonal gammopathy of unknown significance) On: 87-Vyw-000558:14 Request urine immunofixation (70751)Indication: MGUS (monoclonal gammopathy of unknown significance) On: 85-Hsj-955955:14 Request serum free light chains (11093)Indication: MGUS (monoclonal gammopathy of unknown significance) On: 07-Iih-058819:14 Request CBC W/AUTO DIFF WBC (20888)Indication: Diabetes mellitus type 2, controlled On: 18-Exd-882367:13 Request MICROALBUMIN: CREATININE RATIO (52886) AND (72596)Indication: Diabetes mellitus type 2, controlled On: 43-Sie-180304:13 Request METABOLIC PANEL, COMPREHENSIVE (24272)Indication: Diabetes mellitus type 2, controlled On: 04-Uif-275676:13 Request LIPID PANEL (01730)Indication: Mixed hyperlipidemia On: 52-Bcy-027335:13 Request VITAMIN B-12 (CYANOCOBALAMIN) (21439)Indication: Other vitamin B12 deficiency anemia On: 97-Iir-786868:12 Request CBC (AUTO) (93501)Indication: Other vitamin B12 deficiency anemia On: 82-Znd-119746:12 Request Vitamin D Hydroxy (09314)Indication: Vitamin D deficiency, unspecified On: 32-Cpj-386203:12 Request LIPID PANEL (70846)Indication: Mixed hyperlipidemia On: 3-Vrn-034879:42 Request METABOLIC PANEL, COMPREHENSIVE (85922)Indication: Benign essential hypertension (Renamed from Benign essential HTN) On: 8-Lbw-025296:41 Request MICROALBUMIN: CREATININE RATIO (60932) AND (82375)Indication: Benign essential hypertension (Renamed from Benign essential HTN) On: :41 Request SPEP (50119)Indication: Anemia, unspecified On: 99-Ejz-256035:17 Request UPEP (26835)Indication: Anemia, unspecified On: 56-Osn-422401:17 Request CBC W/AUTO DIFF WBC (05079)Indication: Iron (Fe) deficiency anemia On: 9-Ytr-556411:38 Request TSH (07790)Indication: Acquired hypothyroidism On: 1-Khg-598093:38 Request TSH (00627)Indication: Acquired hypothyroidism On: 81-Tcm-069663:34 Request SPEP (06303)Indication: Iron (Fe) deficiency anemia On: 12-Wha-311054:34 Request UPEP (49535)Indication: Iron (Fe) deficiency anemia On: 34-Bbk-581074:34 Request IRON BINDING CAPACITY (TIBC) (86197)Indication: Iron (Fe) deficiency anemia On: 29-Rvm-707624:34 Request FERRITIN (20122)Indication: Iron (Fe) deficiency anemia On: 33-Mgo-870501:34 Request IRON (01436)Indication: Iron (Fe) deficiency anemia On: 55-Amp-689741:34 Request CBC, PLATELETS & AUT DIFF (14349)Indication: Other vitamin B12 deficiency anemia On: 25-Zhm-720383:34 Request VITAMIN B-12 (CYANOCOBALAMIN) (43333)Indication: Other vitamin B12 deficiency anemia On: :33 Request Hemoglobin Glyclated (HGB A1C) (51424)Indication: Diabetes mellitus type 2, controlled On: :33 Request CBC, PLATELETS & AUT DIFF (58416)Indication: Other vitamin B12 deficiency anemia On: :31 Request VITAMIN B-12 (CYANOCOBALAMIN) (06629)Indication: Other vitamin B12 deficiency anemia On: : Request METABOLIC PANEL, COMPREHENSIVE (47710)Indication: Benign essential hypertension (Renamed from Benign essential HTN) On: : Request LIPID PANEL (26080)Indication: Other and unspecified hyperlipidemia On: : Request Vitamin D Hydroxy (77223)Indication: Vitamin D deficiency, unspecified On: : Request SCVSE-BSJFQMIZXLF-GFFTY (31831)Indication: Fatty liver On: Request ZVFVK-ILUCQBVVWJK-UMPPF (09512)Indication: Fatty liver On: :24 Request LIPID PANEL (88328)Indication: Mixed hyperlipidemia On: :23 Request TSH (72648)Indication: Acquired hypothyroidism On: :23 Request MICROALBUMIN: CREATININE RATIO (70974) AND (16183)Indication: Diabetes mellitus type 2, controlled On: :23 Request METABOLIC PANEL, COMPREHENSIVE (94032)Indication: Diabetes mellitus type 2, controlled On: :23 Request Vitamin D Hydroxy (48888)Indication: Vitamin D deficiency, unspecified On: :23 Request CBC, PLATELETS & AUT DIFF (77019)Indication: Other vitamin B12 deficiency anemia On: 97-Qhr-175206:20 Request VITAMIN B-12 (CYANOCOBALAMIN) (61052)Indication: Other vitamin B12 deficiency anemia On: 07-Ebt-270946:20 Request Vitamin D Hydroxy (00163)Indication: Vitamin D deficiency, unspecified On: 51-Rfl-529318:38 Request VITAMIN B-12 (CYANOCOBALAMIN) (91403)Indication: Other vitamin B12 deficiency anemia On: :38 Request CBC W/AUTO DIFF WBC (67594)Indication: Other vitamin B12 deficiency anemia On: : Request TSH (98205)Indication: Acquired hypothyroidism On: Request LIPID PANEL (57575)Indication: Mixed hyperlipidemia On: Request ZESWN-RBOSAABVMPV-VVQSU (70459)Indication: Fatty liver On: : Request PTT (Activated Partial Thromboplastin Time) (45617)Indication: Fatty liver On: : Request PT (Prothrobim Time) (89007)Indication: Fatty liver On: : Request Vitamin D Hydroxy (11465)Indication: Vitamin D deficiency, unspecified On: Request VITAMIN B-12 (CYANOCOBALAMIN) (00276)Indication: Other vitamin B12 deficiency anemia On: : Request CBC W/AUTO DIFF WBC (50467)Indication: Diabetes mellitus type 2, controlled On: Request METABOLIC PANEL, COMPREHENSIVE (24113)Indication: Diabetes mellitus type 2, controlled On: : Request LIPID PANEL (34169)Indication: Mixed hyperlipidemia On: Request LIPID PANEL (97866)Indication: HYPERTENSION, NOS On: :40 Request CBC WITH MANUAL DIFF (83098)Indication: HYPERTENSION, NOS On: :40 Request METABOLIC PANEL, COMPREHENSIVE (24662)Indication: HYPERTENSION, NOS On: Request FECAL OCCULT- Tubes sent home (41400)Indication: Anemia, unspecified On: 38 Request IRON (91358)Indication: Anemia, unspecified On: Request CBC WITH MANUAL DIFF (66181)Indication: HYPERTENSION, NOS On: Request METABOLIC PANEL, COMPREHENSIVE (05314)Indication: Uncontrolled type II diabetes mellitus On: : Request TSH (THYROID STIMULATING HORMONE) (36395)Indication: Acquired hypothyroidism On: :08 Request HgA1C , Office (75428)Indication: Diabetes mellitus type 2, controlled On: 66-Dxs-458102:55 Request VITAMIN B-12 (CYANOCOBALAMIN) (59940)Indication: Other vitamin B12 deficiency anemia On: :17 Request LIPID PANEL (79216)Indication: Other and unspecified hyperlipidemia On: 0-Ruh-596023:17 Request MICROALBUMIN: CREATININE RATIO (50058) AND (59362)Indication: Uncontrolled type II diabetes mellitus On: :17 Request METABOLIC PANEL, COMPREHENSIVE (69611)Indication: Uncontrolled type II diabetes mellitus On: :17 Request HgA1C , Office (88561)Indication: Diabetes mellitus type 2, controlled On: 08-Qtf-498420:25 Request LIPID PANEL (18713)Indication: Other and unspecified hyperlipidemia On: :11 Request METABOLIC PANEL, COMPREHENSIVE (81931)Indication: Diabetes mellitus type 2, controlled On: 06-Mwd-816161:11 Request MICROALBUMIN: CREATININE RATIO (52556) AND (75960)Indication: Diabetes mellitus type 2, controlled On: 14-Lim-824311:11 Request VITAMIN B-12 (CYANOCOBALAMIN) (18420)Indication: Other vitamin B12 deficiency anemia On: :11 Request CBC, PLATELETS & AUT DIFF (24106)Indication: Other vitamin B12 deficiency anemia On: 20-Ipg-142710:11 Request Vitamin D Hydroxy (99067)Indication: Vitamin D deficiency, unspecified On: 68-Sgc-986435:10 Request Blood Glucose , Office (00458)Indication: Diabetes mellitus type 2, controlled On: 28-Vqj-177154:29 Request LIPID PANEL (61563)Indication: Other and unspecified hyperlipidemia On: :26 Request Vitamin D Hydroxy (22771)Indication: Vitamin D deficiency, unspecified On: :26 Request VITAMIN B-12 (CYANOCOBALAMIN) (73062)Indication: Other vitamin B12 deficiency anemia On: : Request METABOLIC PANEL, COMPREHENSIVE (29537)Indication: Benign essential hypertension (Renamed from Benign essential HTN) On: :26 Request MICROALBUMIN: CREATININE RATIO (39326) AND (46498)Indication: Uncontrolled type II diabetes mellitus On: 2-Vmo-371463:26 Request Sputum Culture (61845)Indication: Chronic cough On: 6-Otw-266939:58 Request RANI CULTURE-OTHER (30766)Indication: Sore throat On: 05-Mze-538802:06 Request Urinalysis, Office (57378)Indication: Abnormal urine On: 9-Wlk-150081:14 Request RANI CULTURE-OTHER (82301)Indication: Abnormal urine On: 4-Fby-326588:14 Request CCP ANTIBODY (27832)Indication: History of poliomyelitis (Renamed from H/O acute poliomyelitis) On: :22 Request ANTI-Sm (ANTI [place] ANTIBODY) (39402) test code 227953Kyizsaovms: History of poliomyelitis (Renamed from H/O acute poliomyelitis) On: : Request RHEUMATOID FACTOR-QUANT (54383) test code 439989Yumthkegor: History of poliomyelitis (Renamed from H/O acute poliomyelitis) On: : Request Vitamin D Hydroxy (44505)Indication: Vitamin D deficiency, unspecified On: 50-Swv-320052:15 Request LIPID PANEL (64148)Indication: Other and unspecified hyperlipidemia On: 38-Nsm-261584:15 Request TSH ([id number])Indication: Acquired hypothyroidism On: :15 Request METABOLIC PANEL, COMPREHENSIVE (47596)Indication: Diabetes mellitus type 2, controlled On: 91-Vwn-318756:14 Request VITAMIN B-12 (CYANOCOBALAMIN) (61519)Indication: Other vitamin B12 deficiency anemia On: 69-Cez-260582:08 Request MICROALBUMIN: CREATININE RATIO (99496) AND (91296)Indication: Uncontrolled type II diabetes mellitus On: 83-Sxw-941225:30 Request METABOLIC PANEL, COMPREHENSIVE (11210)Indication: Uncontrolled type II diabetes mellitus On: 30-Fla-852412:30 Request TSH (35003)Indication: Acquired hypothyroidism On: :30 Request Vitamin D Hydroxy (08860)Indication: Vitamin D deficiency, unspecified On: 46-Guj-086497:30 Request LIPID PANEL (37681)Indication: Other and unspecified hyperlipidemia On: :29 Request LIPID PANEL (65460)Indication: Other and unspecified hyperlipidemia On: 13-Sor-809675:51 Request TSH (28087)Indication: Acquired hypothyroidism On: 34-Qfu-786411:50 Request Vitamin D Hydroxy (29406)Indication: Vitamin D deficiency, unspecified On: 77-Hzo-839672:50 Request CBC WITH MANUAL DIFF ([id number])Indication: Diabetes mellitus type 2, controlled On: 27-Ynj-072633:50 Request METABOLIC PANEL, COMPREHENSIVE (37557)Indication: Diabetes mellitus type 2, controlled On: 95-Gbo-128122:50 Request Vitamin D Hydroxy (71520)Indication: Vitamin D deficiency, unspecified On: 95-Leb-472922:44 Request VITAMIN B-12 (CYANOCOBALAMIN) (22400)Indication: Other vitamin B12 deficiency anemia On: :44 Request CBC WITH MANUAL DIFF ([id number])Indication: Anemia, unspecified On: 74-Rwr-986976:43 Request METABOLIC PANEL, COMPREHENSIVE (14918)Indication: Diabetes mellitus type 2, controlled On: 69-Vql-586382:43 Request MICROALBUMIN: CREATININE RATIO (05865) AND (07093)Indication: Diabetes mellitus type 2, controlled On: 29-Rbw-848150:43 Request LIPID PANEL (50275)Indication: Other and unspecified hyperlipidemia On: :43 Request TSH (95088)Indication: Acquired hypothyroidism On: 58-Myy-603699:43 Request Vitamin D Hydroxy (91463)Indication: Vitamin D deficiency, unspecified On: 1-Qzj-332303:03 Request LIPID PANEL (30645)Indication: Other and unspecified hyperlipidemia On: 0-Taz-602701:03 Request CBC WITH MANUAL DIFF ([id number])Indication: Diabetes mellitus type 2, controlled On: 3-Ypz-758254:02 Request METABOLIC PANEL, COMPREHENSIVE (11093)Indication: Diabetes mellitus type 2, controlled On: 3-Rgk-168753:02 Request VITAMIN B-12 (CYANOCOBALAMIN) (75734)Indication: Other vitamin B12 deficiency anemia On: 6-Prn-188856:36 Request Comments: Lot #[id number]-left deltoidDose-1 mlgiven by: Dani Rivera LPN LIPID PANEL (63217)Indication: Other and unspecified hyperlipidemia On: :28 Request METABOLIC PANEL, COMPREHENSIVE (07952)Indication: Uncontrolled type II diabetes mellitus On: :28 Request TSH ([id number])Indication: Acquired hypothyroidism On: :28 Request Vitamin D Hydroxy (98491)Indication: Vitamin D deficiency, unspecified On: :22 Request CBC WITH MANUAL DIFF ([id number])Indication: Anemia, unspecified On: : Request CBC WITH MANUAL DIFF (30598)Indication: Other vitamin B12 deficiency anemia On: :20 Request Blood Glucose , Office (30067)Indication: Uncontrolled type II diabetes mellitus On: :15 Request Comments: 149 HgA1C , Office (11285)Indication: Uncontrolled type II diabetes mellitus On: :15 Request METABOLIC PANEL, COMPREHENSIVE (09053)Indication: Other and unspecified hyperlipidemia On: :22 Request LIPID PANEL (00366)Indication: Other and unspecified hyperlipidemia On: 20-Ufp-239493:22 Request TSH (51551)Indication: Acquired hypothyroidism On: 25-Saa-983988:22 Request HEMOGLOBIN GLYCLATED (HGB A1C) (52871)Indication: Abnormal glucose tolerance test On: 71-Bqq-412934:20 Request VITAMIN B-12 (CYANOCOBALAMIN) (42308)Indication: Other vitamin B12 deficiency anemia On: 19-Fiq-088986:17 Request Vitamin D Hydroxy (27739)Indication: Vitamin D deficiency, unspecified On: 8-Dxb-641026:21 Request VITAMIN B-12 (CYANOCOBALAMIN) (01305)Indication: Other vitamin B12 deficiency anemia On: 7-Fwn-705523:20 Request LIPID PANEL (44070)Indication: Abnormal glucose tolerance test On: :20 Request CBC WITH MANUAL DIFF ([id number])Indication: Abnormal glucose tolerance test On: :20 Request METABOLIC PANEL, COMPREHENSIVE (60103)Indication: Abnormal glucose tolerance test On: 3-Ybl-588048:20 Request METABOLIC PANEL, COMPREHENSIVE (67878)Indication: Abnormal glucose tolerance test On: 2-Nuy-743968:59 Request CBC WITH MANUAL DIFF ([id number])Indication: Abnormal glucose tolerance test On: :59 Request Vitamin D Hydroxy (97998)Indication: Vitamin D deficiency, unspecified On: :59 Request VITAMIN B-12 (CYANOCOBALAMIN) (34268)Indication: Other vitamin B12 deficiency anemia On: 9-Okg-001385:59 Request TSH ([id number])Indication: Acquired hypothyroidism On: 8-Lrn-299451:58 Request LIPID PANEL (92840)Indication: Other and unspecified hyperlipidemia On: :58 Request CCP ANTIBODY ([id number])Indication: Pain in unspecified joint On: 65-Anz-696119:22 Request VITAMIN B-12 (CYANOCOBALAMIN) (86526)Indication: Other vitamin B12 deficiency anemia On: :10 Request Vitamin D Hydroxy (18614)Indication: Vitamin D deficiency, unspecified On: 8-Pae-854713:10 Request MICROALBUMIN: CREATININE RATIO (99588) AND (36645)Indication: Uncontrolled type II diabetes mellitus On: :10 Request CBC WITH MANUAL DIFF ([id number])Indication: Uncontrolled type II diabetes mellitus On: 2-Iyr-773918:10 Request METABOLIC PANEL, COMPREHENSIVE (99243)Indication: Benign essential hypertension (Renamed from Benign essential HTN) On: 9-Pis-749342:09 Request LIPID PANEL (11596)Indication: Other and unspecified hyperlipidemia On: 9-Fsv-634736:09 Request TSH ([id number])Indication: Acquired hypothyroidism On: 9-Oht-381579:39 Request VITAMIN B-12 (CYANOCOBALAMIN) (58891)Indication: Other vitamin B12 deficiency anemia On: 4-Jgq-719082:37 Request HEPATIC FUNCTION PANEL (56929)Indication: Other and unspecified hyperlipidemia On: 0-Irg-707239:36 Request LIPID PANEL (78656)Indication: Other and unspecified hyperlipidemia On: 4-Ldj-898617:36 Request Vitamin D Hydroxy (51919)Indication: Vitamin D deficiency, unspecified On: 4-Xrb-053306:36 Request METABOLIC PANEL, COMPREHENSIVE (91211)Indication: Benign essential hypertension (Renamed from Benign essential HTN) On: 6-Ght-328436:35 Request LIPID PANEL (83403)Indication: Other and unspecified hyperlipidemia On: 1-Tue-276519:35 Request Vitamin D Hydroxy (55735)Indication: Vitamin D deficiency, unspecified On: 6-Tzu-455160:30 Request Vitamin D Hydroxy (09677)Indication: Vitamin D deficiency, unspecified On: 81-Grt-251706:10 Request MICROALBUMIN: CREATININE RATIO (88653) AND (64302)Indication: Uncontrolled type II diabetes mellitus On: 21-Aka-135564:07 Request LIPID PANEL (39214)Indication: Other and unspecified hyperlipidemia On: :07 Request TSH (64497)Indication: Acquired hypothyroidism On: :07 Request VITAMIN B-12 (CYANOCOBALAMIN) (11399)Indication: Other vitamin B12 deficiency anemia On: 83-Xzw-264187:42 Request Vitamin D Hydroxy (09645)Indication: Vitamin D deficiency, unspecified On: 14-Zer-013674:50 Request IRON BINDING CAPACITY (TIBC) (93371)Indication: Iron (Fe) deficiency anemia On: :50 Request LDH (LD) (LACTATE DEHYDROGENASE) (38884)Indication: Iron (Fe) deficiency anemia On: :50 Request FERRITIN (32461)Indication: Iron (Fe) deficiency anemia On: :50 Request IRON ([id number])Indication: Iron (Fe) deficiency anemia On: :50 Request CBC WITH MANUAL DIFF (31552)Indication: Iron (Fe) deficiency anemia On: 23-Cft-390428:50 Request HEPATIC FUNCTION PANEL (60779)Indication: Other and unspecified hyperlipidemia On: :44 Request LIPID PANEL (83124)Indication: Other and unspecified hyperlipidemia On: :44 Request CBC WITH MANUAL DIFF (62730)Indication: Other vitamin B12 deficiency anemia On: :54 Request MICROALBUMIN: CREATININE RATIO (98001) AND (47498)Indication: Glucose intolerance (no malabsorption) On: 9-Dbn-799638:54 Request METABOLIC PANEL, COMPREHENSIVE (22919)Indication: HYPERTENSION, NOS On: 0-Hkg-328727:54 Request LIPID PANEL (68018)Indication: Other and unspecified hyperlipidemia On: :53 Request VITAMIN B-12 (CYANOCOBALAMIN) (03808)Indication: Other vitamin B12 deficiency anemia On: 2-Ufu-516198:53 Request IRON ([id number])Indication: Iron (Fe) deficiency anemia On: 9-Kyf-055961:53 Request Vitamin D Hydroxy (27314)Indication: Osteopenia On: 1-Cnb-993800:49 Request Methylmalonic acid, serum 34741Htkktrdpnc: Other vitamin B12 deficiency anemia On: :03 Request VITAMIN B-12 (CYANOCOBALAMIN) (03455)Indication: Other vitamin B12 deficiency anemia On: :03 Request TSH (33206)Indication: Acquired hypothyroidism On: :03 Request HgA1C , Office (97174)Indication: Abnormal glucose tolerance test On: 2-Mac-204698:06 Request TSH (75612)Indication: Acquired hypothyroidism On: :35 Request LIPID PANEL (65962)Indication: Other and unspecified hyperlipidemia On: :35 Request METABOLIC PANEL, COMPREHENSIVE (20231)Indication: SOB (shortness of breath) on exertion On: :34 Request CBC WITH MANUAL DIFF ([id number])Indication: SOB (shortness of breath) on exertion On: :34 Request TSH (52406)Indication: Acquired hypothyroidism On: 6-Aec-503847:46 Request Comments: do in 6 weeks TSH (77175)Indication: Acquired hypothyroidism On: 63-Pvp-694854:15 Request Comments: DO IN 6 WEEKS WITH MEDICATION CHANGE TSH (84340)Indication: Other malaise and fatigue On: :49 Request Iron Binding Capacity (TIBC) (31117)Indication: Iron (Fe) deficiency anemia On: :43 Request Ferritin (03250)Indication: Iron (Fe) deficiency anemia On: :43 Request Iron (03974)Indication: Iron (Fe) deficiency anemia On: :43 Request HEPATIC FUNCTION PANEL (87106)Indication: Mixed hyperlipidemia On: :42 Request LIPID PANEL (34040)Indication: Mixed hyperlipidemia On: 29-Inq-666856:42 Request Comments: do in 3 months HEPATIC FUNCTION PANEL (60704)Indication: Mixed hyperlipidemia On: :11 Request LIPID PANEL (11788)Indication: Mixed hyperlipidemia On: :11 Request Comments: do in 3 mo TSH (87348)Indication: Acquired hypothyroidism On: Request VITAMIN B-12 (CYANOCOBALAMIN) (42532)Indication: Anemia, unspecified On: Request LDH (LD) (LACTATE DEHYDROGENASE) (05008)Indication: Anemia, unspecified On: Request RETICULOCYTE COUNT MANUL (01352)Indication: Anemia, unspecified On: Request IRON BINDING CAPACITY (TIBC) (61820)Indication: Anemia, unspecified On: Request IRON (42142)Indication: Anemia, unspecified On: Request FOLIC ACID SERUM (70778)Indication: Anemia, unspecified On: Request HAPTOGLOBIN (07356)Indication: Anemia, unspecified On: Request FERRITIN (31014)Indication: Anemia, unspecified On: Request CBC, PLATELETS & AUT DIFF ([id number])Indication: Anemia, unspecified On: Request HgA1C , Office (53459)Indication: Abnormal glucose tolerance test On: : Request CBC with manual diff (50772)Indication: Anemia, unspecified On: :49 Request HgA1C , Office (72729)Indication: Abnormal glucose tolerance test On: 28-Mno-845796:30 Request Comments: controlled URINALYSIS W/O MICRO (98281)Indication: HYPERTENSION, NOS On: 60-Tyf-876069:03 Request TSH ([id number])Indication: Acquired hypothyroidism On: : Request MICROALBUMIN URINE QUANT ([id number])Indication: HYPERTENSION, NOS On: 48-Cnl-089459:03 Request METABOLIC PANEL, COMPREHENSIVE (60503)Indication: HYPERTENSION, NOS On: :03 Request LIPID PANEL (74731)Indication: HYPERTENSION, NOS On: :03 Request CBC WITH MANUAL DIFF ([id number])Indication: HYPERTENSION, NOS On: :03 Request Planned Encounters Medical; 3 Week FU - On: 29-Aug-2018 11:15 [facility] Melanie KEBEDE, Doris Melanie DO, Doris Melanie DO, Doris Planned Procedures Radiology - Lumbar SpineBy: Melanie On: 24-Jun-2018 Intent DO, Doris Melanie DO, Doris Melanie DO, Doris Aerosol Treatment ([id number])By: On: 14-Apr-2018 Intent Thelma Sofia Comments: Lungs clear after albuterol aerosol treatment Ultrasound - LiverBy: Melanie KEBEDE, On: 21-Nov-2017 Intent Doris Melanie DO, Doris Melanie DO, Doris B 12 Injection, 1000 mcg (J3420)By: On: 21-Nov-2017 Intent Melanie KEBEDE Doris Melanie DO, Comments: Vitamin b12 1000mcg injection lot:[id number]:04/2019L DELT IMpt tolerated well MSMITH,DOCUMENTATION BILLING CLERK Doris Melanie DO, Doris PHYSICAL THERAPY ([id number])By: [place] On: 28-Oct-2017 Intent Thelma Radiology - Hip - LeftBy: [place], On: 28-Oct-2017 Intent Thelma Aerosol Treatment (08554)By: Melanie On: 07-Aug-2017 Intent DO Doris Melanie DO, Doris Comments: more a/e less nois e Melanie DODoris Spirometry (95987)By: Melanie KEBEDE, On: 07-Aug-2017 Intent Doris Melanie DO, Doris Melanie Comments: really poor techniq DO, Doris Radiology - Chest- PA and LatBy: On: 07-Aug-2017 Intent Melanie DO, Doris Melanie DO, Doris Melanie DO, Doris IV Needle placement ([id number])By: On: 02-Aug-2017 Intent Melanie DO, Doris Melanie DO, Doris Melanie DO, Doris INFUSION, NORMAL SALINE SOLUTION , On: 02-Aug-2017 Intent 1000 CC (Special Coverage Comments: lot:[id number]:02-26-2019rte:right anticubdose:1000ml given by:david GORMAN signedER, DOCUMENTATION BILLING CLERK Instructions Apply. See [facility]: 2048) (J7030)By: Doris Navarro DO, DO, Kathleen Fearon DO, Kathleen INFUSION, NORMAL SALINE SOLUTION , On: 01-Aug-2017 Intent 1000 CC (Special Coverage Comments: lot:[id number]:02-26-2019rte:IV left anticubdose:1000ml NS given by:david GORMAN signedER, DOCUMENTATION BILLING CLERK Instructions Apply. See [facility]: 2048) (J7030)By: Marcia Britton Aerosol Treatment (45534)By: Melanie On: 01-Aug-2017 Intent Doris KEBEDE DO, Kathleen Comments: more a/e less junky sounding Doris Navarro DO PNEUM VAC ADLT/IMUMNOSPR, SBC/INTRM On: 25-Apr-2017 Intent ([id number])By: Doris Navarro DO Comments: 0.5cc given sq [place] arm lot [id number] exp 09/05/18 Doris Navarro DO DODoris INTENSIVE BEHAVIORAL THERAPY TO On: 25-Apr-2017 Intent REDUCE CARDIOVASCULAR DISEASE RISK, INDIVIDUAL, TOOX-FI-NDEY, ANNUAL, 15 MINUTES (G0446)By: Doris Navarro DO DO, Doris Navarro DODoris JYTQ-BZ-[id number] BEHAVIORAL COUNSELING On: 25-Apr-2017 Intent FOR OBESITY, 15 MINUTES (G0447)By: Doris Navarro DO Melanie DO, Doris Melanie DO, Doris B 12 Injection, 1000 mcg (J3420)By: On: 25-Apr-2017 Intent Doris Navarro DO DO, Comments: 1 ml given lt arm lot [id number] exp 03/15 Doris Jay DO ELECTROCARDIOGRAM, COMPLETE (ECG) On: 25-Apr-2017 Intent (24050)By: Doris Navarro DO Comments: nsr no acute chg Doris Navarro DO DO, Doris B 12 Injection, 1000 mcg (J3420)By: On: 14-Mar-2017 Intent Doris Navarro DO DO, Comments: lot [id number] mcgas, DOCUMENTATION BILLING CLERK Doris Melanie DO, Doris B 12 Injection, 1000 mcg (J3420)By: On: 31-Dec-2016 Intent Melanie DO, Doris Melanie DO, Comments: [id number], DOCUMENTATION BILLING CLERK Doris Melanie DO, Doris B 12 Injection, 1000 mcg (J3420)By: On: 20-Sep-2016 Intent Melanie DO, Doris Melanie DO, Comments: lot:[id number]: 11/13Dose: 1,000 mcgSite: R dltdLocation; IMby:, DOCUMENTATION BILLING CLERK Doris Melanie DO, Doris Solu- Medrol Injection, 125mg On: 20-Aug-2016 Intent (J2930)By: Melanie DO, Doris Comments: lot: [id number]: 01/14site/route: LGM/IMamt:2mLVIS signed when applicableChelsea, STAVE LOG CUT OFF SAW OPERATOR Melanie DO, Doris Melanie DO, Doris Aerosol Treatment ([id number])By: Melanie On: 20-Aug-2016 Intent DO, Doris Melanie DO, Doris Comments: albulterol 0.83%relistedned nad more a/e less noise Melanie DO, Doris B 12 Injection, 1000 mcg (J3420)By: On: 20-Aug-2016 Intent Melanie DO, Doris Melanie DO, Comments: lot: [id number]: ite/route: L del/IMamt: 1mLVIS signed when applicableChelsea, STAVE LOG CUT OFF SAW OPERATOR Doris Melanie DO, Doris Spirometry ([id number])By: Melanie DO, On: 16-Aug-2016 Intent Doris Melanie DO, Doris Melanie Comments: ok stable - DO, Doris Aerosol Treatment (47402)By: Melanie On: 16-Aug-2016 Intent DO, Doris Melanie DO, Doris Comments: albulterol 0.83%more a.e stil some niose in RUL -- junky and easy to cough Melanie DO, Doris Solu- Medrol Injection, 125mg On: 16-Aug-2016 Intent (J2930)By: Doris Navarro DO Comments: lot [id number] mgright gm, IMas DOCUMENTATION BILLING CLERK Melanie DO, Doris Melanie DO, Doris B 12 Injection, 1000 mcg (J3420)By: On: 20-Jul-2016 Intent Melanie DO, Doris Melanie DO, Comments: B12lot:6202exp:ite:rt deltroute:IMdose:1mlD.HAY Valentin Doris Melanie DO, Doris Solu- Medrol Injection, 125mg On: 20-Jul-2016 Intent (J2930)By: Doris Navarro DO Comments: lot: [id number]: 01/14site/route: RGM/IMamt: 2mLVIS signed when applicableSIMI Salas Melanie DO, Doris Melanie DO, Doris Aerosol Treatment (35282)By: Melanie On: 20-Jul-2016 Intent DO, Doris Melanie DODoris Comments: less wheeze good a/e- less irritability with breathing Doris Navarro DO Radiology - Chest- PA and LatBy: On: 20-Jul-2016 Intent Melanie DO, Doris Melanie DO, Doris Melanie DO, Doris Spirometry ([id number])By: Melanie KEBEDE, On: 20-Jul-2016 Intent Doris Melanie DO, Doris Melanie Comments: mild restriction =- poor curve and technique DO, Doris ELECTROCARDIOGRAM, COMPLETE (ECG) On: 20-Jul-2016 Intent ([id number])By: Doris Navarro DO Comments: sinus braden no acute chg Melanie DO, Doris Melanie DO, Doris B 12 Injection, 1000 mcg (J3420)By: On: 29-May-2016 Intent Melanie DO, Doris Melanie DO, Comments: Lot:[id number]:11/13Dose:1mlRoute:IMSite:r armGiven By:SAADIA signed Doris Doris Navarro DO Flu Vaccine (Quadrivalent) [id number]: On: 29-May-2016 Intent Doris Navarro DO Melanie DO, Comments: Lot:[id number]:01/25/17Dose:0.5mLRoute:IMSite:L DltdGiven By:SAADIA signed Doris Melanie DO, Doris B 12 Injection, 1000 mcg (J3420)By: On: 21-May-2016 Intent Melanie DO, Doris Melanie DO, Doris Melanie DO, Doris B 12 Injection, 1000 mcg (J3420)By: On: 18-May-2016 Intent Melanie DO, Doris Melanie DO, Comments: B12lot:6185exp:ite:rt deltroute:IMdose:1mlD.HAY Valentin Doris Melanie DO, Doris B 12 Injection, 1000 mcg (J3420)By: On: 11-May-2016 Intent Melanie DO, Doris Melanie DO, Comments: lot [id number] mcgleft dltdas, DOCUMENTATION BILLING CLERK Doris Melanie DO, Doris B 12 Injection, 1000 mcg (J3420)By: On: 08-May-2016 Intent Melanie DO, Doris Melanie DO, Comments: B12lot:6185exp:ite:rt deltroute:IMdose:1mlD.LacieHAY pablo Doris Melanie DO, Doris B 12 Injection, [...] 09-Apr-2016 Intent REDUCE CARDIOVASCULAR DISEASE RISK, INDIVIDUAL, UBDC-DX-FDCY, ANNUAL, 15 MINUTES (G0446)By: Melanie DO, Doris Melanie DO, Doris Melanie DO, Doris OOKY-ZP-VBLJ BEHAVIORAL COUNSELING On: 09-Apr-2016 Intent FOR OBESITY, 15 MINUTES (G0447)By: Melanie DO, Doris Melanie DO, Doris Melanie DO, Doris MAMMOGRAM, SCREENING, BOTH BREAST On: 09-Apr-2016 Intent ([id number])By: Melanie DO, Doris Melanie DO, Doris Melanie DO, Doris DEXA SCAN AXIAL SKELETON ([id number])By: On: 09-Apr-2016 Intent Melanie DO, Doris Melanie [...] DO, Comments: Lot:[id number]:11/13Dose:1mlRoute:IMSite:l arm Given By:SAADIA signed Doirs Melanie DO, Doris B 12 Injection, 1000 mcg (J3420)By: On: 09-Mar-2016 Intent Melanie DO, Doris Melanie DO, Comments: 0.5 cc given im lt arm lot [id number] exp 11/13 Doris Melanie DO, Doris B 12 Injection, 1000 mcg (J3420)By: On: 24-Feb-2016 Intent Melanie DO, Doris Melanie DO, Comments: Lot:[id number]:12/13Dose:1mlRoute:IMSite:l armGiven By:ELENAVIS signed Doris Melanie DO, Doris B 12 Injection, 1000 mcg (J3420)By: On: 17-Feb-2016 Intent Melanie DO, Doris Melanie DO, Comments: Lot:[id number]:12/13Dose:1mlRoute:IMSite:r armGiven By:ELENAVIS signed Doris Melanie DO, Doris [...] DO, Maggie A Comments: Lot:[id number]:12/13Dose:1mlRoute:IMSite:r arm Given By:JKMVIS signed Echo CompleteBy: Fast DO, Maggie A On: 05-Dec-2015 Intent Radiology - Chest- PA and LatBy: On: 07-Sep-2015 Intent Fast DO, Maggie A B 12 Injection, 1000 mcg (J3420)By: On: 19-Aug-2015 Intent Fast DO, Maggie A Comments: Lot:[id number]:04/14Dose:1mlRoute:IMSite:l armGiven By:SAADIA signed Aerosol Treatment (71626)By: Alexy On: 03-Aug-2015 Intent DO Maggie A B 12 Injection, 1000 mcg (J3420)By: On: 17-May-2015 Intent Alexy KEBEDE Maggie A Comments: Lot:[id number]:11/12Dose:1mlRoute:IMSite:l armGiven By:SAADIA signed Flu Vaccine (Quadrivalent) [id number]: On: 17-May-2015 Intent Alexy KEBEDE Maggie A Comments: lot [id number]: 01/26/2016site/route L sol, IMamt 0.5mlVIS and ABN signed when applicableChelsSIMI jamisonFM4 ADMINISTRATION OF INFLUENZA VIRUS On: 17-May-2015 Intent VACCINE (G0008)By: Maggie Tracey DO A B 12 Injection, 1000 mcg (J3420)By: On: 15-Feb-2015 Intent Kanika Georges Comments: Lot:[id number]:11.16Route:IMSite:R deltoidDose: 1 mLgiven by: Kanika Georges CMA DANIEL (Ankle Brachial Index) On: 08-Feb-2015 Intent (15614)By: Maggie Tracey DO Radiology - Lumbar SpineBy: Alexy KEBEDE, On: 08-Feb-2015 Intent Maggie Armstrong Ultrasound - ThyroidBy: Alexy KEBEDE, On: 09-Nov-2014 Intent Maggie A B 12 Injection, 1000 mcg (J3420)By: On: 09-Nov-2014 Intent Maggie Tracey DO Comments: lot [id number] mcgleft dlCARYN Hall Radiology - Chest- PA and LatBy: On: 13-Sep-2014 Intent Maggie Tracey DO A Comments: call stat Pulse Oximetry (72846)By: Alexy KEBEDE, On: 13-Sep-2014 Intent Maggie Armstrong Comments: 97% Inhaler Demonstration (75650)By: On: 07-Sep-2014 Intent Kimberley Loyd CNP Radiology - Chest- PA and LatBy: On: 14-Jul-2014 Intent Maggie Tracey DO A Comments: call rsults Spirometry (63115)By: Alexy KEBEDE, On: 14-Jul-2014 Intent Maggie A Comments: good effort and curve mild rest /obst Prevnar 13 (69552)By: Alexy KEBEDE, On: 30-Jun-2014 Intent Maggie A Comments: lot [id number] 09/2015location L armroute imgiven by - msmithVIS and/or ABN signed MAMMOGRAM, SCREENING, BOTH BREAST On: 14-Apr-2014 Intent (28765)By: Maggie Tracey DO B 12 Injection, 1000 mcg (J3420)By: On: 14-Apr-2014 Intent Alexy DO Maggie A Comments: Lot #[id number] date:mount given:1mlRoute: IMSite given: left deltoidGiven by: HAY Zavala Cartoid DopplerBy: Maggie Tracey DO A On: 14-Apr-2014 Intent Eprescribed prescriptions (G8553)By: On: 07-Oct-2013 Intent Alexy KEBEDE Maggie A DXA, BONE DENSITY, AXIAL SKELETON On: 20-Jul-2013 Intent (77016)By: Maggie Tracey DO Comments: aug Pelvic and Breast, Medicare On: 20-Jul-2013 Intent (G0101)By: Maggie Tracey DO Cartoid DopplerBy: Alexy DO Maggie A On: 07-Jul-2013 Intent Eprescribed prescriptions (G8553)By: On: 07-Jul-2013 Intent Raiza Ortiz FLU VAC, SPLIT, >3 YEARS, INTRAMUSC On: 04-May-2013 Intent (64359)By: Maritza Cantor Comments: lot [id number] 2014site/route L sol, IMamt 0.5mlVIS and ABN signed when applicableChelsea, [facility] ADMINISTRATION OF INFLUENZA VIRUS On: 04-May-2013 Intent VACCINE (G0008)By: Maritza Cantor Radiology - Hip - LeftBy: Alexy KEBEDE, On: 07-Apr-2013 Intent Maggie Armstrong Eprescribed prescriptions (G8553)By: On: 07-Apr-2013 Intent Raiza Ortiz Eprescribed prescriptions (G8553)By: On: 05-Jan-2013 Intent Raiza Ortiz Spirometry (71524)By: Alexy KEBEDE, On: 01-Dec-2012 Intent Maggie A Comments: good effort and curve normal Radiology - Chest- PA and LatBy: On: 01-Dec-2012 Intent Fast DO, Maggie A Comments: stat call wet read Eprescribed prescriptions (G8553)By: On: 01-Dec-2012 Intent Raiza Ortiz Pulse Oximetry (16789)By: Angel, On: 01-Dec-2012 Intent Raiza Comments: 98% Eprescribed prescriptions (G8553)By: On: 27-Nov-2012 Intent Melanie DO, Doris Melanie DO, Doris Melanie DO, Doris MAMMOGRAM, SCREENING, BOTH BREASTS On: 29-Sep-2012 Intent (99067)By: Maggie Tracey DO A EKG (99564)By: Raiza Ortiz On: 29-Sep-2012 Intent Comments: ekg- 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 axis and no acute st t wave changes Eprescribed prescriptions (G8553)By: On: 29-Sep-2012 Intent Raiza Ortiz Eprescribed prescriptions (G8553)By: On: 03-Sep-2012 Intent Raiza Ortiz Eprescribed prescriptions (G8553)By: On: 30-Jul-2012 Intent Raiza Ortiz B 12 Injection, 1000 mcg (J3420)By: On: 23-Jun-2012 Intent Alexy DO Maggie A Comments: Lot:[id number]:Dose:1mlRoute:IMSite:L armGiven By:SAADIA signed Eprescribed prescriptions (G8553)By: On: 23-Jun-2012 Intent Raiza Ortiz B 12 Injection, 1000 mcg (J3420)By: On: 25-Mar-2012 Intent Maricruz Rivera LPN Comments: Lot #[id number]-06/10Site-right deltoidDose-1 mlgiven by: Dani Rivera LPN Eprescribed prescriptions ([id number])By: On: 25-Mar-2012 Intent Alexy KEBEDE Maggie A FLU VAC, SPLIT, >3 YEARS, INTRAMUSC On: 25-Mar-2012 Intent ([id number])By: Patsy Leslie LPN Comments: Lot/Exp: [id number], 12/2011Given in L Dltd, IMPrefilled SyringeBy CARYN Garner ADMINISTRATION OF INFLUENZA VIRUS On: 25-Mar-2012 Intent VACCINE ([id number])By: Patsy Leslie LPN Echo CompleteBy: Maggie Tracey DO A On: 07-Dec-2011 Intent B 12 Injection, 1000 mcg ([id number])By: On: 07-Dec-2011 Intent Patsy Leslie LPN CT - OtherBy: Maggie Tracey DO A On: 03-Oct-2011 Intent Comments: get cta of carotid arteries TDAP VACCINE >7 IM ([id number])By: On: 03-Oct-2011 Intent Raiza Ortiz B 12 Injection, 1000 mcg (J3420)By: On: 07-Sep-2011 Intent Raiza Ortiz Comments: Lot #[id number]/09Site-left deltoidDose-1 mlgiven by: Dani Rivera LPN Cartoid DopplerBy: Maggie Tracey DO On: 07-Sep-2011 Intent Comments: in september DXA, BONE DENSITY, AXIAL SKELETON On: 07-Sep-2011 Intent ([id number])By: Maggie Tracey DO MAMMOGRAM, SCREENING, BOTH BREASTS On: 07-Sep-2011 Intent ([id number])By: Maggie Tracey DO Aerosol Treatment ([id number])By: Cipeng On: 08-Aug-2011 Intent IVANKimberley EKG ([id number])By: Raiza Ortiz On: 06-Jun-2011 Intent Comments: ekg showed normal sinus rhythym, left axis, no acute st/t wave changes DXA, BONE DENSITY, AXIAL SKELETON On: 06-Jun-2011 Intent ([id number])By: Maggie Tracey DO FLU VAC, SPLIT, >3 YEARS, INTRAMUSC On: 11-May-2011 Intent ([id number])By: Maricruz Rivera LPN Comments: Lot #[id number]/Site-left deltoidgiven by: Dani Rivera LPN B 12 Injection, 1000 mcg (J3420)By: On: 11-May-2011 Intent Maricruz Rivera LPN Comments: Lot #[id number]/08Site-right deltoidDose-1 mlgiven by: Dani Rivera LPN ADMINISTRATION OF INFLUENZA VIRUS On: 11-May-2011 Intent VACCINE (G0008)By: Maricruz Rivera LPN B 12 Injection, 1000 mcg (J3420)By: On: 05-Mar-2011 Intent Maggie Tracey DO Comments: Lot #[id number]/08Site-left deltoidDose-1 mlgiven by: Dani Rivera LPN Eprescribed prescriptions ([id number])By: On: 05-Mar-2011 Intent Camelia Tracey DOa A B 12 Injection, [...] PNEUM VAC ADLT/IMUMNOSPR, SBC/INTRM On: 03-Jul-2010 Intent ([id number])By: Maggie Tracey DO Comments: Lot #[id number]/29/11Site-left deltoidDose- 0.5mlgiven by:[facility] ADMINISTRATION OF PNEUMOCOCCAL On: 03-Jul-2010 Intent VACCINE (G0009)By: Maggie Tracey DO MAMMOGRAM, SCREENING, BOTH BREASTS On: 03-Jul-2010 Intent ([id number])By: Camelia Tracey DOa A B 12 Injection, 1000 mcg (J3420)By: On: 20-Jun-2010 Intent Fast DO, Maggie A Comments: Lot #[id number]/07Site-left deltoidDose-1 mlgiven by:[facility] B 12 Injection, 1000 mcg (J3420)By: On: 10-May-2010 Intent Apoorva Calle Comments: Lot:[id number]:12/07Dose:1000mcg/1mlRoute:IMSite:right deltoid Given by: HAY Birch FLU VAC, SPLIT, >3 YEARS, INTRAMUSC On: 10-May-2010 Intent ([id number])By: Apoorva Calle Comments: Lot:[id number]:10/2010Dose:0.5mlRoute:IMSite:Left Deltoid Given by: HAY Birch ADMINISTRATION OF INFLUENZA VIRUS On: 10-May-2010 Intent VACCINE (G0008)By: Apoorva Calle Doppler Ultrasound OtherBy: Alexy KEBEDE, On: 12-Apr-2010 Intent Maggie A Comments: both legs stat- left leg swelling- call wet read Spirometry ([id number])By: Alexy KEBEDE, On: 12-Apr-2010 Intent Maggie A Comments: good effort and curve normal B 12 Injection, 1000 mcg (J3420)By: On: 05-Apr-2010 Intent Maggie Tracey DO Ultrasound - GallbladderBy: Alexy KEBEDE, On: 01-Feb-2010 Intent Maggie Nathaniel IV Needle placement ([id number])By: On: 10-Jan-2010 Intent Ana Guzman Comments: IV 22 gauge inserted in right antecubital on first attempt and 0.9 NSS running without difficulty-AW INFUSION, NORMAL SALINE SOLUTION , On: 10-Jan-2010 Intent 1000 CC (Special Coverage Instructions Apply. See MCM: 2049) ([id number])By: Kimberley Loyd CNP THER/PROPH/DIAG INJ, SC/IM On: 10-Jan-2010 Intent ([id number])By: Kimberley Loyd CNP Radiology - Knee - Right - Weight On: 03-Jan-2010 Intent BearingBy: Maggie Tracey DO EKG ([id number])By: Raiza Ortiz On: 03-Jan-2010 Intent Comments: ekg showed normal sinus rhythym, left axis, no acute st/t wave changes Aerosol Treatment ([id number])By: Evert On: 19-Oct-2009 Intent [employer], Briana Cartoid DopplerBy: Maggie Tracey DO On: 14-Jun-[address] - Brain/HeadBy: Maggie Tracey DO On: 06-Jun-2009 Intent MAMMOGRAM, SCREENING, BOTH BREASTS On: 06-Jun-2009 Intent ([id number])By: Maggie Tracey DO DXA, BONE DENSITY, AXIAL SKELETON On: 06-Jun-2009 Intent ([id number])By: Maggie Tracey DO FLU VAC, SPLIT, >3 YEARS, INTRAMUSC On: 12-May-2009 Intent ([id number])By: Maricruz Rivera LPN Comments: Lot #[id number]-left deltoidgiven by:[facility] ADMINISTRATION OF INFLUENZA VIRUS On: 12-May-2009 Intent VACCINE (G0008)By: Maricruz Rivera LPN Radiology - Hand - RightBy: Alexy KEBEDE, On: 26-Jan-2009 Intent Maggie Armstrong Radiology - Wrist - RightBy: Fast On: 26-Jan-2009 Intent Maggie KEBEDE Comments: call wet read Pulse Oximetry ([id number])By: Alexy KEBEDE, On: 27-Dec-2008 Intent Maggie A Comments: 98 Inhaler Demo ([id number])By: Alexy KEBEDE, On: 27-Dec-2008 Intent Maggie Armstrong Spirometry ([id number])By: Alexy KEBEDE, On: 27-Dec-2008 Intent Maggie A Comments: good effort and curve has small airways diminished Radiology - Chest- PA and LatBy: On: 27-Dec-2008 Intent Maggie Tracey DO Echo CompleteBy: Maggie Tracey DO On: 08-Nov-2008 Intent Comments: elevated bp - increase patricia EKG ([id number])By: Maggie Tracey DO A On: 08-Nov-2008 Intent Comments: ekg showed normal sinus rhythym, leftl axis, no acute st/t wave changes rsr unchanged Bio Z ([id number])By: Maggie Tracey DO On: 08-Nov-2008 Intent Inhaler Demo ([id number])By: Melanie KEBEDE, On: 02-Sep-2008 Intent Doris Navarro DO, Doris Jay DO Aerosol Treatment ([id number])By: Melanie On: 02-Sep-2008 Intent DO, Doris Melanie DO, Doris Comments: less echoey -- better less cough Melanie DO, Doris EKG ([id number])By: Melanie DO Doris On: 16-Dec-2007 Intent Melanie DO, Doris Melanie [...] LSN TRNK/ARM/LEG On: 09-Jul-2007 Intent 0.6-1.0 CM ([id number])By: Kimberley Loyd CNP BIOPSY OF SKIN LESION, SINGLE On: 09-Jul-2007 Intent ([id number])By: Kimberley Loyd CNP SHAVE SKIN LESION, TRUNK/ARM/LEG On: 02-Jul-2007 Intent ([id number])By: Kimberley Loyd CNP BIOPSY OF SKIN LESION, SINGLE On: 02-Jul-2007 Intent ([id number])By: Kimberley Loyd CNP B 12 Injection, 1000 mcg (J3420)By: On: 02-Jul-2007 Intent Lashonda Lee LPN FLU VAC, SPLIT, >3 YEARS, INTRAMUSC On: 04-Jun-2007 Intent ([id number])By: Jing Cabello RN Comments: Lot #: [id number] date: 01/03Amount given: 0.5 MLRoute: IMSite given: Left deltoidGiven by: Nathaniel Beal LPN IMMUNIZ ADMNIN, 1 VAC, SNGL/COMBO On: 04-Jun-2007 Intent ([id number])By: Jing Cabello RN B 12 Injection, 1000 mcg (J3420)By: On: 04-Jun-2007 Intent Jing Cabello RN B 12 Injection, 1000 mcg (J3420)By: On: 01-May-2007 Intent Shara Castro Comments: given in ldt, 1cc, lot# [id number], exp.5.09 B 12 Injection, 1000 mcg (J3420)By: On: [...] OF B12 PT COMING IN TOMORROW Doris Melanie DO, Doris B 12 Injection, [...] ([id number])By: On: 28-Jan-2007 Intent Melanie DO, Doris Melnaie DO, Doris Melanie DO, Doris Ultrasound - GallbladderBy: Melanie On: 18-Oct-2006 Intent DO, Doris Melanie DO, Doris Melanie DO, Doris INFUSION, NORMAL SALINE SOLUTION , On: 18-Oct-2006 Intent 250 CC (Special Coverage Comments: GAVE 1 LITER Instructions Apply. See MCM: 2049) ([id number])By: Melanie DO, Doris Melanie DO, Doris Melanie DO, Doris IV Infusion ([id number])By: Melanie DO, On: 18-Oct-2006 Intent Doris Melanie DO, Doris Melanie DO, Doris EKG ([id number])By: Doris Navarro DO On: 10-Oct-2006 Intent Melanie [...] Injection Solution Ordered: 08-May-2016 Pending Melanie DO, Odris Melanie DO, Doris Melanie DO, Doris Vitamin [...] Injection Solution Ordered: 07-Feb-2011 Pending Thelma Khan DOCUMENTATION BILLING CLERK Vitamin B-12 1000 MCG/ML Injection Solution Ordered: 05-Mar-2011 Pending Fast DO, Maggie A Vitamin B-12 1000 MCG/ML Injection Solution Ordered: 11-May-2011 Pending Hluszti DOCUMENTATION BILLING CLERK, Maricruz Vitamin B-12 1000 MCG/ML Injection Solution Ordered: 07-Sep-2011 Pending Raiza Ortiz Vitamin B-12 1000 MCG/ML Injection Solution Ordered: 07-Dec-2011 Pending Anuj DOCUMENTATION BILLING CLERK, Patsy L Vitamin B-12 1000 MCG/ML Injection Solution Ordered: 25-Mar-2012 Pending Hluszti DOCUMENTATION BILLING CLERK, Maricruz Vitamin B-12 1000 MCG/ML Injection Solution [...] Solution Ordered: 16-Mar-2016 Pending Melanie DO, Doris Navarro DO, Doris Navarro DO, Doris Vitamin B-12 1000 MCG/ML Injection Solution Ordered: 21-Nov-2017 Pending Melanie KEBEDE, Doris Navarro DO, Doris Navarro DO, Doris Instructions Name Dates Details Nonsmoker [...] II diabetes mellitus Encounters Office Visit On: 31-Jul-2018 12:34 Encounter Reason: Muscle pain - The onset of the muscle pain has been gradual and has been occurring in a persistent pattern for 1 year. The course has been constant. The muscle pain is described as a severe cramping.Encounter Diagnosis: End: 31-Jul-2018 13:24 BMI 36.0-36.9,adult, Nonsmoker, Other anxiety states, Sciatica, unspecified laterality [facility] Office Visit On: 24-Jun-2018 13:04 Encounter Reason: [...] The patient does have durable power of ip attorney and living will. Other providers contributing [...] 13 steps at home. I was at [facility] for 3 days in ICU I broke [...] The patient does have durable power of ip attorney and living will. The patient has [...] and she off pravastatin and went to [place] and now on 5 mg of crestor- and tolerated she got leg pain and weakness on pravachol- - she got good [employer] [facility] in [place]- --bp is good and cough gone and [...] fever no productive ??cough- just alot of aicarl- says cant use proair due to drainage [...] bracelet or put handrails in bathroom. The radha sims has completed the following preventative measures: PAP smear (2011), mammography (2013) and colonoscopy (unsure of timing). The patient does have durable power of ip attorney and living will. The damián ent [...] since going to the urgent care at [facility]- on atb yet but will finish [...] bp is great- went to [facility] for vascular check and said ok- [...] stroke sx mood controlled has followup in [facility] for vascular issues soon- no chest [...] The patient does have durable power of ip attorney and living will. The patient has [...] not home- no gerd - went to [place] for artery checks and doing ok there- [...] laboratory test results: she went back to [facility] Saw Dr Shruthi Quinones- ??head of [...] ER visit: note: (stroke she was at [facility] x 5days released on saturday05/22/12 to 05/27/12). The patient feels well with minor complaints, has decreased energy End: 29-May-2012 14:12 level and is sleeping well. Patient has been compliant with instructions. Current medication use: compliant with dosing regimen. Patient sleeps 7 hours per night. Nutrition: balanced diet and supplement al vitamins. [facility] Diagnosis: CVA (434.91), Benign essential hypertension (401.1), Diabetes type II,controlled no comp (250.00), Hypothyroidism (244.9), Carotid stenosis (433.10) [facility] Office Visit On: 22-May-2012 10:33 Encounter Reason: Follow up hospital - Reason for ER visit: note: (TIA. ??Patient was seen by [facility] ER x 3 times last week and then sent to [facility] for psych eval.). 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
--- OUTSIDE RECORDS SUMMARY | 2018-10-18 12:28 | XMS RPT_ITS | Continuity of Care Document ---
:1940 Author Organization [facility] Address [address] [facility] [address] [place] [address] Phone Care Team Providers Name Role Phone Doris Navarro DO Unavailable Camacho Serrano Unavailable Flakito Morales Unavailable [facility] Unavailable Marcello Stein Unavailable Sal Urrutia [...] artery stenosis (I65.23, 433.10) Comments: goes to [facility] yearly to follow Status: Active Bilateral [...] related to fatty liver -- did nutrition elder counselor and wt loss / metformin and [...] Quantity: 30 {Tablet} Refills: 3 Ordered:16-Apr-2018 Arnold aNvarro DO, DO, KathleenFearon DO, Kathleen Start : 16-Apr-2018 Active TraMADol HCl 50 MG Oral Tablet 2 (two) Tablet bid prn pain for 0 days Quantity: 100 {Tablet} Refills: 0 Ordered:14-Aug-2018 Arnold Navarro DO, DO, KathleenFearon DO, Kathleen Start : 14-Aug-2018 Active Comments:one pqexnreX03.90Oarrs pulled 08/14/18 TraZODone HCl 100 MG Oral Tablet 1-1/2 Tablet qhs for 0 days Quantity: 80 {Tablet} Refills: 3 Ordered:12-Dec-2017 Arnold Navarro DO, DO, KathleenFearon DO, Kathleen Start : 12-Dec-2017 Active Albuterol Sulfate (2.5 MG/3ML) 0.083% Inhalation Nebulization Solution 1 (one) Nebulized Soln Nebulized Soln q 6hrs, prn for 30 days Quantity: 120 {Nebule} Refills: 3 Ordered:08-Aug-2017 GAURAV Hniojosa Start : 20-Jul-2016 End : 08-Aug-2017 Inactive [...] Start : 26-Sep-2016 End : 12-Dec-2017 Inactive Zeigler 5-325 MG Oral Tablet 1 q 4hrs [...] : 07-Sep-2014 End : 13-Sep-2014 Discontinued ERGOCALCIFEROL, 46493GDCA (Oral Capsule) 1 (one) Capsule q week [...] End : 23-Jun-2012 Discontinued VITAMIN D (ERGOCALCIFEROL), 98443HJSC (Oral Capsule) 1 Capsule q week for 0 days Quantity: 12 {Capsule} Refills: 2 Ordered:19-Aug-2015 Raiza Ortiz Start : 07-Apr-2013 End : 19-Aug-2015 Discontinued VITAMIN D, 74408NNTL (Oral Capsule) 1 (one) Capsule q week [...] - PT Result: Comments: See Note; NOTES: [facility] [address] [place] [address] / REHABILITATION SERVICES INITI OR EVALUATION MR#: [id number] Acct: [id number] Name: MARICRUZ GRIGSBY Rep #: [id number] : 1940 78 From: Karen Flores DPT [...] to be FAXED BACK to us at [phone] for Medicare purposes. For Medicare only, by signing this I certify the plan of care. Please let me know if there are questions or concerns regarding this plan of care. Physician Signature: Date: <Electronically signed by Karen GODWINT> 08/13/18 1740 CC: Doris Navarro DO ELR Signed 13-Aug-2018 Inital Evaluation (1) - PT Result: Comments: See Note; NOTES: [facility] [address] [place] [address] [address] [place] [address] / REHABILITATION SERVICES INITI OR EVALUATION MR#: [id number] Acct: [id number] Name: MARICRUZ GRIGSBY Rep #: [id number] : 1940 78 From: Karen Flores DPT [...] to be FAXED BACK to us at [phone] for Medicare purposes. For Medicare only, by signing this I certify the plan of care. Please let me know if there are questions or concerns regarding this plan of care. Physician Signature: Date: <Electronically signed by Karen Flores DPT> 08/13/18 1548 CC: Doris Navarro DO ELR Signed 31-Jul-2018 Inital Evaluation (1) - PT Result: Comments: See Note; NOTES: [facility] [address] [place] [address]. [address] [place] [address] / REHABILITATION SERVICES INITI AL EVALUATION MR#: [id number] Acct: [id number] Name: MARICRUZ GRIGSBY Rep #: [id number] : 1940 78 From: Eugenio GODWINT Referring [...] to evaluate your patient. For Medicare and [facility] plans, please review the plan of care and approve it. It will need to be FAXED BACK to us at [phone] for Medicare purposes. For Medicare only, by signing this I certify the plan of care . Please let me know if there are questions or concerns regarding this plan of care. Physician Signature: Date: <Electronically s igned by Eugenio Correa DPT> 07/31/18 1457 CC: Doris Navarro DO CLS Signed 16-Jul-2018 Discharge Instruction Result: Comments: See Note; NOTES: [facility] Medical Records Department [address] [place] [address] Discharge Instruction 07/16/18 1405 MR#: [id number] Acct: [id number] Name: MARICRUZ GRIGSBY Rep #: [id number] : 1940 78 From: Johnnie Baez MD [...] Primary Care Pro vider. Call [facility] ([phone]) or report to the closest Emergency Room. Call 911 if necessary. 07/16/18 1647 <Electronically signed by Johnnie Baze MD> Date Johnnie Baez MD Cosigner Signature (If Indicated): Date CC: Doris Navarro DO 16-Jul-2018 Emergency Department Summary Result: Comments: See Note; NOTES: [facility] Medical Records Department [address] [place] [address] Emergency Department Summary 07/16/18 1249 MR#: [id number] Acct: [id number] Name: CLIFFORD CRUZMARICRUZ L Rep #: [id number] : 1940 78 From: Johnnie Baez MD PCP: Doris Navarro DO Status: DEP ER - ER Visit Summary Date of Service: 07/16/18 Chief Complaint: Nausea, vomit ing and diarrhea. History of Present Illness: The patient is a 78 F past medical history of prior stroke, hypertension hge-vearbhl-uctlgxgck diabetes. Patient states last 3-4 days she [...] secondary to viral gastroenteritis History of no c-kfkjcmk-nqgowvvck diabetes. This note was generated with TownSquared dictation software. It may contain incorrect words, spelling, and punctuation that were not noted in review of the chart prior to [facility] ED Disposition - Plan for ED Patient: Chief Complaint: Nausea/Vomiting/Diarrhea Referrals: Doris Navarro, DO [Primary Care Provider] - What to do if you have Problems For any increased christy n, shortness of breath, bleeding, nausea or vomiting, chest pain, or any unexpected problems, contact your Primary Care Provider. Call [facility] ([phone]) or report to the closest Emergency Room. Call 911 if necessary. 07/16/18 4427 <Electronically signed by Johnnie Baez MD> Date Johnnie Baez MD Cosigner Signature ( If Indicated): Date CC: Doris Navarro DO 24-Jun-2018 L/S Spine Min 4 Views Result: Comments: See Note; NOTES: [facility] Imaging Services [address] [place] [address] L/S Spine Min 4 Views MR#: [id number] Acct: [id number] Name: MARICRUZ GRIGSBY Rep # : [id number] : 1940 F 78 From: Mack Soni MD PCP: Doris Navarro DO Status: REG CLI Study: L/S Spine Min 4 Views Date of Exam: 06/24/18 Exam# [id number] Ordering Dr: Doris Navarro DO SANDI DY: [...] Service support , CC: Doris Navarro DO Blade Operator: Signed 14-May-2018 Emergency Department Summary Result: Comments: See Note; NOTES: [facility] Medical Records Department [address] [place] [address] Emergency Department Summary 05/14/18 0908 MR#: [id number] Acct: [id number] Name: MARICRUZ GRIGSBY Rep #: [id number] : 1940 78 From: Zee Denise MD [...] family doctors she is re ferred to [facility] for the shoulder injury and she will return for change in symptoms and she is comfortable with this plan Treatment Plan: [] Disposition: [] Stable home Impression: [] Fall left rib fracture, left shoulder injury This note was generated with Live Shuttleation software. It may contain incorrect words, spelling, [...] your Primary Care Provider. Call [facility] ([phone]) or report to the closest Emergency Room. Call 911 if necessary. 05/14/18 1530 <Electronically signed by Zee Denise MD> Date Zee Soriaignjoseph Signjessicaur e (If Indicated): Date CC: Doris Navarro DO 14-May-2018 Discharge Instruction Result: Comments: See Note; NOTES: [facility] Medical Records Department [address] [facility] [place] [address] Discharge Instruction 05/14/18 1133 MR#: [id number] Acct: [id number] Name: MARICRUZ GRIGSBY Rep #: [id number] : 1940 78 From: Zee Denise MD PCP: Doris Navarro DO Status: REG ER ED Disposition - Plan for ED Patient: Chief Complaint: Fall Instructions: ED M echanical Fall, ED Fx Rib, ED Sprain Shoulder, ED Sling Prescriptions: Hydrocodone Bitart/Apap 5-325 [Zeigler 5MG-325MG] 1 tab PO Q6H PRN PRN 3 Days #10 tab PRN Reason: Pain Referrals: Doris Navarro, [Primary Care Provider] - What to do if you have Problems For any increased pain, shortness of breath, bleeding, nausea or vomiting, chest pain, or any unexpected problems, contact your Primary Car e Provider. Call [facility] ([phone]) or report to the closest Emergency Room. Call 911 if necessary. 05/14/18 1134 <Electronically signed by Zee Denise MD> Date ___ Zee Denise MD Cosigner Signature (If Indicated): Date CC: Doris Navarro DO 14-May-2018 Chest PA and Lateral Result: Comments: See Note; NOTES: [facility] Imaging Services [address] [place] [address] Chest PA and Lateral MR#: [id number] Acct: [id number] Name: CLIFFORD CRUZMARICRUZ Stuart Rep #: [id number] : 1940 F 78 From: Teo Wayne MD PCP: Doris Navarro DO Status: REG ER Study: Chest PA and Lateral Date of Exam: 05/14/18 Exam# [id number] Ordering Dr: Zee Denise MD STUDY: X-RAY [...] Teo Wayne MD at 10:11 EDT Tel [phone], Toura support , CC: MD Sonam Denise; Doris Navarro DO Blade Operator: Signed 14-May-2018 Elbow min 3 Views Result: Comments: See Note; NOTES: [facility] Imaging Services [address] [place] [address] Elbow min 3 Views MR#: [id number] Acct: [id number] Name: MARICRUZ GRIGSBY Rep #: [id number] : 1940 F 78 From: Teo Wayne MD PCP: Doris Navarro DO Status: REG ER Study: Elbow min 3 Views Date of Exam: 05/14/18 Exam# [id number] Ordering Dr: Zee Denise MD STUD Y: [...] Teo Wayne MD at 10:12 EDT Tel [phone], Service support , CC: MD Sonam Denise; Doris Navarro DO Blade Operator: Signed 14-May-2018 Shoulder min 2 Views Result: Comments: See Note; NOTES: [facility] Imaging Services [address] [place] [address] Shoulder min 2 Views MR#: [id number] Acct: [id number] Name: CLIFFORD CRUZMARICRUZ Stuart Rep #: [id number] : 1940 F 78 From: Teo Wayne MD PCP: Doris Navarro DO Status: [facility] ER Study: Shoulder min 2 Views Date of Exam: 05/14/18 Exam# [id number] Ordering Dr: Zee Denise MD STUDY: X-RAY [...] Wayne MD at 11:02 EDT Tel [phone], Service support , CC: MD Sonam Denise; Doris Navarro DO Blade Operator: Signed 06-Feb-2018 History and Physical Exam Result: Comments: See Note; NOTES: 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 This note was generated with [employer] software. It may contain incorrect words, spelling, and punctuation that were not noted in checking the note before signing. Code Visit RUBEN VALDES: 60708 Initial observation care L3 8 2108 <Electronically signed by María Barnes MD> Date María Barnes MD Cosigner Signature: Date (if applicable) CC: María Barnes; Doris Navarro DO Signed 06-Feb-2018 Brain/Head without Contrast Result: Comments: See Note; NOTES: [facility] Imaging Services [address] [place] [address] Brain/Head without Contrast MR#: [id number] Acct: [id number] Name: MARICRUZ GRIGSBY Rep #: [id number] : 1940 F 77 From: Renata Lee MD PCP: Doris Navarro DO Status: [facility] Study: Brain/Head without Contrast Date of Exam: 02/06/18 Exam# [id number] Ordering Dr: Cameron Maret MD STUDY: CT BRAIN WITHOUT CONTRAST REASON [...] , CC: Doris Navarro DO; Jered Marte Blade Operator: Signed 06-Feb-2018 Chest 1 View Result: Comments: See Note; NOTES: [facility] Imaging Services [address] [place] [address] Chest 1 View MR#: [id number] Acct: [id number] Name: MARICRUZ GRIGSBY Rep #: [id number] : 1940 F 77 From: Renata Lee MD PCP: Doris Navarro DO Status: REG ER Study: Chest 1 View Date of Exam: 02/06/18 Exam# [id number] Ordering Dr: Jered Marte MD STUDY: X-RAY [...] , CC: Doris Navarro DO; Jered Marte Blade Operator: Signed 25-Nov-2017 Liver Result: Comments: See Note; NOTES: [facility] Imaging Services [address] [place] [address] Liver MR#: [id number] Acct: [id number] Name: MARICRUZ GRIGSBY Rep #: [id number] : 1940 F 77 From: Mack Hand MD PCP: Doris Navarro DO Status: REG CLI Study: Liver Date of Exam: 11/25/17 Exam# [id number] Ordering Dr: Doris Navarro DO STUDY: ABDOMINAL [...] MD at 12:34 EDT , Service support [phone], CC: Doris Navarro DO Blade Operator: Signed 29-Oct-2017 Hip 2-3 Views with Pelvis Result: Comments: See Note; NOTES: [facility] Imaging Services [address] [place] [address] Hip 2-3 Views with Pelvis MR#: [id number] Acct: [id number] Name: MARICRUZ GRIGSBY ep #: [id number] : 1940 F 77 From: Benji Finch PCP: Doris Navarro DO Status: REG CLI Study: Hip 2-3 Views with Pelvis Date of Exam: 10/29/17 Exam# [id number] Ordering Dr: Thelma Sofia RAFTSMAN- C STUDY: X-RAY - PELVIS AND LEFT [...] , CC: QUINN Sofia; Doris Navarro DO Blade Operator: Signed 27-Aug-2017 12 Lead Electrocardiogram Result: Comments: See Note; NOTES: [facility] Cardiovascular Services [address] [place] [address] 12 Lead EKG 08/24/17 1719 MR#: [id number] Acct: [id number] Name: PORTIA GRIGSBY Stuart Rep #: [id number] : 1940 77 From: Maurilio Meraz MD [...] ECG C onfirmed by SOLEDAD STREETER, MAURILIO ([id number]), social media editor STACY CARTER (56) on 08/27/2017 10:37:34 AM Referred By: EITAN Confirmed By:MAURILIO MERAZ MD 08/27/17 1037 Date Maurilio Meraz MD CC: Doris Navarro DO Signed 25-Aug-2017 Emergency Department Summary Result: Comments: See Note; NOTES: [facility] Medical Records Department [address] [place] [address] Emergency Department Summary 08/24/17 1709 MR#: [id number] Acct: [id number] Name: MARICRUZ GRIGSBY Rep #: [id number] : 1940 77 From: Zee Denise MD [...] at home. She has no history of PA PE or DVT she does have history [...] be altered This note was generated with Pushfor dictation software. It may contain incorrect words, [...] your Primary Care Provider. Call [facility] ([phone]) or report to the closest Emergency Room. Call 911 if necessary. 08/25/17 0001 <Electronically sig radha by Zee Denise MD> Date Zee Denise MD Cosigner Signature (If Indicated): Date CC: Doris Salazaron 24-Aug-2017 Discharge Instruction Result: Comments: See Note; NOTES: [facility] Medical Records Department [address] [place] [address] Discharge Instruction 08/24/171819 MR#: [id number] Acct: [id number] Name: MARICRUZ GRIGSBY Rep #: [id number] : 1940 77 From: Zee Denise MD [...] your Primary Care Provider. Call [facility] ([phone]) or report to the closest [facility] Room. Call 911 if necessary. 08/24/171820 <Electronically signed by Zee Denise MD> Date Zee Denise MD Cosign er Signature (If Indicated): Date CC: Doris Melanie KEBEDE 24-Aug-2017 Chest PA and Lateral Result: Comments: See Note; NOTES: [facility] Imaging Services [address] [place] [address] Chest PA and Lateral MR#: [id number] Acct: [id number] Name: MARICRUZ GRIGSBY Stuart Rep #: [id number] : 1940 F 77 From: Stacy Tapia MD PCP: Doris Navarro DO Status: REG ER Study: Chest PA and Lateral Date of Exam: 08/24/17 Exam# [id number] Ordering Dr: Zee Denise MD XR Chest [...] CC: MD Sonam Denise; Doris Navarro DO Blade Operator: Signed 07-Aug-2017 Chest PA and Lateral Result: Comments: See Note; NOTES: [facility] Imaging Services [address] [place] [address] Chest PA and Lateral MR#: [id number] Acct: [id number] Name: MARICRUZ GRIGSBY Rep #: [id number] : 1940 F 77 From: Teo Wayne MD PCP: Doris Navarro DO Status: REG CLI Study: Chest PA and Lateral Date of Exam: 08/07/17 Exam# [id number] Ordering Dr: Doris Navarro DO STUDY: X-RAY [...] Logan i, MD at 13:49 EST Tel [phone], Service support , CC: Doris Navarro DO Blade Operator: Signed 20-Nov-2016 Operative Report Result: Comments: See Note; NOTES: [facility] Medical Records Department [address] [place] [address] Operative Report 11/14/16 0736 MR#: [id number] Acct: [id number] Name: CLIFFORD HOBBS FADUMOMARICRUZ Rep #: [id number] : 1940 76 From: Liza Duron DO PCP: Doris Navarro DO Status: [facility] Y Location: [facility] Report of Operation Date of Procedure: 11/14/16 Pre-Operative Diagnosi s: Right third and fourth trigger fingers Post-Operative Diagnosis: Name Surgery/Procedure Performed:: Right hand third and fourth A1 shnanan release Type of Anesthesia:: Block,Sour John Anesthesiologist: Fox Michaels Estimated Blood Loss (mL): [...] right arm was prepped and draped after Sour John block was initiated. We markdedra posey out [...] Dragon disclaimer This note was generated with TownSquared dictation software. It may contain incorrect words, spellin g, and punctuation that were not noted in checking the note before signing. 11/20/16 1231 <Electronically signed by Liza Duron DO> Date Liza Duron DO CC: Liza Duron DO; Doris Navarro DO Signed 16-Nov-2016 Oncology Progress Note Result: Comments: See Note; NOTES: [facility] Medical Records Department [address] [place] [address] Oncology Progress Note MR#: [id number] Acct: [id number] Name: PORTIA GRIGSBY Rep #: [id number] : 1940 76 From: Sal Urrutia MD [...] level. Sal Urrutia MD T: NTS JOB: [id number] 11/16/16 0850 <Electronically signed by Sal Urrutia MD> Date Sal Urrutia MD Cosigner Signature (If Indicated): Date CC: Date Dictated: 11/08/16 1305 Date Transcribed: 11/08/16 1305 Blade Operator: Signed 14-Nov-2016 Discharge Instruction Result: Comments: See Note; NOTES: [facility] Medical Records Department [address] [place] [address] Instructions for Home/Discharge Instructions 11/14/16 0735 MR#: [id number] Acct: [id number] Name: MARICRUZ GRIGSBY Rep #: [id number] : 1940 76 From: Liza Duron DO [...] mg PO DAILY 11/09/16 Hydrocodone Bitart/Apap 5-325 [Zeigler 5MG- 325MG] 1 - 2 tablet PO Q6H PRN PRN #20 tablet 11/14/16 The following prescriptions were given: Hydrocodone Bitart/Apap 5- 325 [Zeigler 5MG-325MG] 1 - 2 tablet PO Q6H PRN PRN #20 tablet PRN Reason: Pain Primary Care Physician: Doris Navarro DO [Primary Care Provider] - Please Follow Up With: Liza Duron - [phone] 11/14/16 0736 <Electronically signed by Liza Duron DO> Date Liza Duron DO CC: Doris Navarro DO 20-Jul-2016 Chest PA and Lateral Result: Comments: See Note; NOTES: [facility] Imaging Services [address] [place] [address] Verdana 4d Chest PA and Lateral MR#: [id number] Acct: [id number] Name: JAQUAN GRIGSBY Rep #: [id number] : 1940 F 76 From: Mack Hand MD PCP: Doris Navarro DO Status: REG CLI Study: Chest PA and Lateral Date of Exam: 07/20/16 Exam# [id number] Ordering Dr: Doris Navarro DO STUDY: X-RAY [...] at 12:24 EST Tel , Service support [phone], CC: Doris Navarro DO Blade Operator: Signed 26-Jan-2016 Echocardiogram Complete Result: Comments: See Note; NOTES: [facility] Cardiovascular Services [address] [place] [address] Echo Complete 01/26/16 1008 MR#: [id number] Acct: [id number] Name: MARICRUZ PARMAR Rep #: [id number] : 1940 75 From: Mack Dickerson MD Attending Dr: Maggie Tracey DO Status: REG CLI Ordering Dr: Maggie Tracey DO Date: 01/26/16 Location: [facility] Sex: F C Admitt ed: Reason [...] Dictated: 01/26/16 1008 Date Transcribed: 01/26/16 1612 Blade Operator: Signed 05-Dec-2015 Chest 1 View (Portable) Result: Comments: See Note; NOTES: [facility] Imaging Services [address] [place] [address] Verdana 4d Chest 1 View (Portable) MR#: [id number] Acct: [id number] Name: MARICRUZ PEÑALOZA Rep #: [id number] : 1940 F 75 From: Yari Garcia MD PCP: Maggie Tracey DO Status: PRE ER Study: Chest 1 View (Portable) Date of Exam: 12/05/15 Exam# [id number] Ordering Dr: Johnnie Baez MD STUDY: X-RAY [...] at 16:44 EDT Tel , Service support [phone], RAD/Chest 1 V iew (Portable) IMPRESSION: Underexpansion of the lungs. Mild to moderate cardiomegaly. Electronically Signed: Yari Garcia MD at 16:44 EDT Tel , Service support , CC: Maggie Tracey DO; Johnnie Baez MD Blade Operator: Signed 05-Dec-2015 Spirometry (52827) Comments: good effort and curvenormal Result: 05-Dec-2015 EKG (45616) Comments: ekg showed normal sinus rhythym, normal axis, no acute st/t wave changes Result: [MEASUREMENTS ANALYSIS] Date of Test: 12/05/2015 14:27:41; Heart Rate: 93; OK Interval: 202; QRS: 96; QT Interval: 352; Corrected QT Interval (QTc): 409; P Wave Aguila: 48; QRS Wave Aguila: -26; T Wave Aguila : 55; Blood Pressure: 134/64 [ECG DIAGNOSTIC STATEMENTS] Date of Test: 12/05/2015 14:27:41; Summary: Sinus Rhythm WITHIN NORMAL LIMITS 21-Sep-2015 12 Lead Electrocardiogram Result: Comments: See Note; NOTES: [facility] Cardiovascular Services [address] [place] [address] 12 Lead EKG 09/19/15 0908 MR#: [id number] Acct: [id number] Name: MARICRUZ VIGIL Rep #: [id number] : 1940 75 From: Maurilio Meraz MD [...] wave progression Confirmed by SOLEDAD STREETER, MAURILIO ([id number]), social media editor STACY CARTER (56) on 09/21/2015 11:27:40 AM Referred By: JE Confirmed By:MAURILIO MERAZ MD 1127 Date Maurilio Meraz MD CC: Maggie Tracey DO Date Dictated: 09/19/15907 Date Transcribed: 09/19/15907 Blade Operator: Signed 19-Sep-2015 Discharge Instruction Result: Comments: See Note; NOTES: [facility] Medical Records Department [address] [place] [address] Discharge Instruction 09/19/15 1020 MR#: [id number] Acct: [id number] Name: MARICRUZ GRIGSBY Rep #: [id number] : 1940 75 From: Johnnie Baez MD [...] chest pain, or any unexpected problems, contact [facility] doctor. Call [facility] ([phone]) or report to the closest Emergency Room. Call 911 if necessary. 09/19/15 1195 <Electronically signed by Johnnie Baez MD> Date __ Johnnie Baez MD Cosigner Signature (If Indicated): Date CC: Maggie Tracey DO 19-Sep-2015 Emergency Department Summary Result: Comments: See Note; NOTES: [facility] Medical Records Department [address] [place] [address] Emergency Department Summary MR#: [id number] Acct: [id number] Name: MARICRUZ GRIGSBY Rep #: [id number] : 1940 75 From: Johnnie Baez MD [...] tachycardia at 112. No acute signs of PA or ischemia. White count 11.4, H and [...] C: Maggie Tracey DO T: NTS JOB: [id number] 09/19/15 9374 <Electronically signed by Johnnie Baez MD& amp;#62; Date Johnnie Kowalski Signature (If Indicated): Date CC: Maggie Tracey DO Date Dictated: 09/19/15 1019 Date Transcribed: 09/19/15 1019 Blade Operator: Signed 07-Sep-2015 Chest PA and Lateral Result: Comments: See Note; NOTES: [facility] Imaging Services [address] [place] [address] Verdana 4d Chest PA and Lateral MR#: [id number] Acct: [id number] Name: MARICRUZ HADLEY Rep #: [id number] : 1940 F 75 From: Kali Raymundo MD PCP: Maggie Tracey DO Status: REG CLI Study: Chest PA and Lateral Date of Exam: 09/07/15 Exam# [id number] Ordering Dr: Maggie Irwin DO STUDY: X-RAY [...] FACR at 11:41 EST , Service support [phone], RAD/Chest PA and Lateral IMPRESSION: No significant changes. Stable moderate cardiomegaly. Bilateral interstitial changes more prominent on the right. Wanda marcus Signed: Kali Raymundo MD, FACR at 11:41 EST , Service support [phone], CC: Maggie Tracey DO Blade Operator: Signed 07-Sep-2015 Spirometry (33163) Comments: good effort and curve normal Result: 24-Mar-2015 PT Discharge Summary Result: Comments: See Note; NOTES: [facility] [address] [place] [address] Fax REHABILITATION SERVICES DISCHARGE SUMMARY MR#: [id number] Acct: [id number] Name: MARICRUZ GRIGSBY Rep #: [id number] : 1940 75 From: Yuni Clark Referring [...] discharge. Yuni Clark, PT T: NTS JOB: [id number] <Electronically signed by Yuni Clark > 03/24/15 1227 CC: Maggie Tracey DO Signed 17-Feb-2015 Inital Evaluation - PT Result: Comments: See Note; NOTES: [facility] [address] [place] [address] Fax REHABILITATION SERVICES INITIAL EVALUATION MR#: [id number] Acct: [id number] Name: MARICRUZ GRIGSBY Rep #: [id number] : 1940 75 From: Yuni Clark Referring Dr.: Maggie Tracey DO Status: REG RCR Insurance : MEDICARE PART A B Eval Date: [facility] DATE OF SERVICE: 02/16/2015 SUBJECTIVE: This patient [...] care. Yuni Clark, PT T: NTS JOB: [id number] <Electronically signed by Yuni Clark > 02/17/15 1011 CC: Signed For Medicare only, by seng yao this I certify the plan of care. Physicians Signature Date 08-Feb-2015 L/S Spine Min 4 Views Result: Comments: See Note; NOTES: [facility] Imaging Services [address] [place] [address] Radiology Report MR#: [id number] Acct: [id number] Name: MARICRUZ GRIGSBY Rep #: [id number] : 1940 F 74 From: Teo Wayne MD PCP: Maggie Tracey DO Status: REG CLI Study: L/S Spine Min 4 Views Date of Exam: 02/08/15 Exam# [id number] Ordering Dr: Maggie Tracey DO STUDY: X-RAY [...] Wayne MD a t 12:30 EDT Tel [phone], Service support [phone], RAD/L/S Spine Min 4 Views IMPRESSION: Degenerative changes of the spine, as detailed above. Electro nically Signed: Teo Wayne MD at 12:30 EDT Tel [phone], Service support [phone], CC: Maggie Tracey DO Blade Operator: Signed 15-Nov-2014 Thyroid Result: Comments: See Note; NOTES: [facility] Imaging Services [address] [place] [address] Ultrasound Report MR#: [id number] Acct: [id number] Name: MARICRUZ GRIGSBY Rep #: [id number] : 1940 F 74 From: Julián Trivedi DO PCP: Maggei Tracey DO Status: REG CLI Study: Thyroid Date of Exam: 11/15/14 Exam# [id number] Ordering Dr: Maggie Tracey DO STUDY: THYROID [...] Julián Trivedi DO at 16:51 EDT Tel [phone], Service support [phone], Fax CC: Maggie Tracey DO Blade Operator: Signed 13-Sep-2014 Chest PA and Lateral Result: Comments: See Note; NOTES: [facility] Imaging Services [address] [place] [address] Radiology Report MR#: [id number] Acct: [id number] Name: MARICRUZ GRIGSBY Rep #: [id number] : 1940 F 74 From: Donato Abdi MD PCP: Maggie Tracey DO Status: REG CLI Study: Chest PA and Lateral Date of Exam: 09/13/14 Exam# [id number] Ordering Dr: Maggie Tracey DO STUDY: X [...] at 12:01 EST Tel , Service support [phone], CC: Maggie Tracey DO Blade Operator: Signed 15-Jul-2014 Chest PA and Lateral Result: Comments: See Note; NOTES: [facility] Imaging Services [address] [place] [address] Radiology Report MR#: [id number] Acct: [id number] Name: MARIRCUZ GRIGSBY Rep #: [id number] : 1940 F 74 From: Teo Wayne MD PCP: Maggie Tracey DO Status: REG CLI Study: Chest PA and Lateral Date of Exam: 07/15/14 Exam# [id number] Ordering Dr: Maggie Tracey DO SANDI DY: [...] Teo Wayne MD at 9:42 EST Tel [phone], Service support [phone], CC: Maggie Tracey DO Blade Operator: Signed 10-May-2014 Bilat Scrn Digital & CAD Result: Comments: See Note; NOTES: [facility] Imaging Services [address] [place] [address] Breast Imaging Report MR#: [id number] Acct: [id number] Name: MARICRUZ GRIGSBY ep #: [id number] : 1940 F 74 From: Gene Phillips PCP: Maggie Tracey DO Status: REG CLI Exam# [id number] Ordering Dr: Maggie Tracey DO MAMMOGRAPHY - [...] these results will be sent to the located within [facility] ient by the facility within 30 days. Approximately 10% of breast cancers are not detected by mammography. A normal mammogram should not delay biopsy of a clinically suspicious abnormality. Electro nically Signed: Jessenia Phillips MD at 19:48 EDT Tel , Service support [phone], CC: Maggie Tracey DO Blade Operator: Signed 10-Sep-2013 Dexa Bone Density Study (HP) Result: Comments: See Note; NOTES: [facility] Imaging Services [address] [place] [address] Bone Density Report MR#: [id number] Acct: [id number] Name: MARICRUZ GRIGSBY Rep #: [id number] : 1940 F 73 From: Teo Wayne MD PCP: Maggie Tracey DO Status: [facility] CLI Study: Dexa Bone Density Study (HP) Date of Exam: 09/10/13 Exam# [id number] Ordering Dr: Maggie Tracey DO STUDY: DUAL [...] M.D. at 11:04 EST , Service support [phone], CC: Maggie Tracey DO Blade Operator: Signed Immunization Name Dates Details Influenza (3 years and up) on: 04-Jun-2007 Comments: Lot #: [id number] date: 01/03Amount given: 0.5 MLRoute: IMSite given: Left deltoidGiven by: Nathaniel Beal LPN Influenza (3 years and up) on: 12-May-2009 Comments: Lot #[id number]-left deltoidgiven by:CDH Family History Unknown Family Member Name Dates Details Cancer Status: Active Diabetes Mellitus Status: Active Father Comments: PA, hypercholesterolemia Status: Active First Degree Relatives Comments: [...] smoker Vital Signs Date Test Result Details 1-Bqs-359725:37 Pulse 110 /min Comments: Pattern: Regular Respiration [...] kg/m2 Body Surface Area Calculated 2.01 m2 83-Als-575133:08 Pulse 76 /min Comments: Pattern: Regular Respiration [...] kg/m2 Body Surface Area Calculated 2.01 m2 52-Cha-716294:46 Temperature 97.8 f Comments: Method: Temporal Pulse [...] kg/m2 Body Surface Area Calculated 2.01 m2 59-Ctc-009867:03 Temperature 98.5 f Comments: Method: Temporal Pulse [...] kg/m2 Body Surface Area Calculated 2.01 m2 97-Dtd-185476:05 Pulse 74 /min Comments: Pattern: Regular Respiration [...] kg/m2 Body Surface Area Calculated 2.06 m2 07-Zhb-115378:13 Temperature 98.2 f Comments: Method: Temporal Pulse [...] kg/m2 Body Surface Area Calculated 2.06 m2 9-Gar-658518:26 Comments: orthostatic bp assessment: 12:10pmlying- 170/90 76hrsitting- [...] kg/m2 Body Surface Area Calculated 2.06 m2 92-Nxf-401401:29 Comments: Dr. Reyes and had a glauocma [...] administered 81mg asa orally at this time [facility] BP Systolic 156 mm[Hg] Comments: Patient Position: [...] kg/m2 Body Surface Area Calculated 1.91 m2 99-Fcz-424773:00 Pulse 68 /min Comments: Pattern: Regular Respiration [...] 0.00 cm Results Date Description Value Details 51-Mnf-938261:55 Basic Metabolic Profile (BMP) Comments: [facility] [address] [place], [address] GAP 13 (Normal) Range: 5-15 CO2 25.0 [...] A.D.A. criteria.Please note revised GLUCOSE reference range ydguxvdcw38/02/2018. 90-Enk-586828:55 CBC W/Diff, Automated Comments: [facility] [address] [place], [place], [address] Absolute Lymph 0.98 {X10_3/ul} (Normal) Range: 0.83-4.51 [...] 4.2-5.4 WBC 9.1 K/mm3 (Normal) Range: 4.4-11.0 48-Vsw-237990:50 Rapid Strep Test, Office (79731) Rapid Strep Test, Office Negative (Normal) :58 TSH (15450) Comments: PATIENT NOT FASTINGPERFORMED BY: [facility] [id number] TSH 5.590 {uIU/mL} (Abnormal) Range: 0.450-4.500 :58 T4, FREE (THYROXINE) (46510) Comments: PATIENT NOT FASTINGPERFORMED BY: [facility] [id number] T4,Free(Direct) 1.81 ng/dL (Abnormal) Range: 0.82-1.77 :58 T3, FREE (TRIDOTHYRONINE) (16843) Comments: PATIENT NOT FASTINGPERFORMED BY: [facility] [id number] Triiodothyronine (T3), Free 2.1 pg/mL (Normal) Range: [...] Muscle ABS Comments: Comments: ANTI-LIVER/KIDNEY MICRO AB [id number] [facility] (refer to report for specific site)refer [...] MELI-DIRECT Negative (Normal) Comments: Performed at: - [facility] [id number] Director: Constantine Christianson PhD, Phone: [phone] :44 Ceruloplasmin Comments: Comments: ANTI-LIVER/KIDNEY MICRO AB [id number] [facility] (refer to report for specific site)refer to report for address and phone number CERULOPLAS 1560 22.0 mg/dL (Normal) Range: 19.0-39.0 :44 CMV Acute Antibody IgM Comments: Comments: ANTI-LIVER/KIDNEY MICRO AB [id number] [facility] (refer to report for specific site)refer to report for address and phone number CMVIgM AB < 30.0 AU/mL (Normal) Range: 0.0-29.9 Comments: Negative <30.0 Equivocal 30.0 - 34.9 Positive >34.9A positive result is generally indicative of acuteinfection, reactivation or persistent IgM production. :44 Ferritin Comments: Comments: ANTI-LIVER/KIDNEY MICRO AB [id number] SER/[facility] Epbjifymzb6521 [facility] [place], [address] FERRITIN 236 ng/mL (Normal) Range: 8-252 :44 Free T3 Comments: Comments: ANTI-LIVER/KIDNEY MICRO AB [id number] SER/[facility] Yp[address]yykdhl5[address] [facility] [place], [address] FREE T3 1.6 pg/mL (Abnormal) Range: 2.18-3.98 :44 GGTP 64 U/L (Abnormal) Comments: Comments: ANTI-LIVER/KIDNEY MICRO AB [id number] SER/[facility] [address] [place], [place], [address] Range: 5-55 :44 Hepatitis Panel Acute Comments: Comments: ANTI-LIVER/KIDNEY MICRO AB [id number] [facility] (refer to report for specific site)refer to report for address and phone number HEP C AB <0.1 {s/co_ratio} (Normal) Range: 0.0-0.9 Comments: Negative: < 0.8 Indeterminate: 0.8 - 0.9 Positive: > 0.9 The CDC recommends that a positive HCV antibody result be followed up with a HCV Nucleic Acid Amplification test (314275). HB CORE [id number] Negative (Normal) HB SURF AG Negative (Normal) HEP A IgM 6734 Negative (Normal) :44 Liver Profile Comments: Comments: ANTI-LIVER/KIDNEY MICRO AB [id number] SER/[facility] [address] [place], [address] D BILI 0.17 mg/dL (Normal) Range: 0.00-0.30 T BILI 0.60 mg/dL (Normal) Range: 0.20-1.00 ALT 48 U/L (Normal) Range: 13-56 ALK P 93 U/L (Normal) Range: 45-117 AST 43 U/L (Abnormal) Range: 15-37 GLOB 3.5 g/dL (Normal) Range: 2.2-4.2 ALB 3.7 g/dL (Normal) Range: 3.2-5.0 T PROT 7.2 g/dL (Normal) Range: 6.4-8.2 :44 Miscellaneous Lab Procedure Comments: Comments: ANTI-LIVER/KIDNEY MICRO AB [id number] SER/RFTest(s) Ordered: ANTI-LIVER/KIDNEY MICROS AB [id number] SER/[facility] [address] [place], [address] [facility] Comments: TEST RESULT UNITS REF INTERVALLiver- Kidney [...] Free Direct Comments: Comments: ANTI-LIVER/KIDNEY MICRO AB [id number] SER/[facility] Uxtczwinqv0800 [facility] [place], [address] T4 FREE DIRECT 1.06 ng/dL (Normal) Range: 0.76-1.46 20-Xmi-95424:44 Thyroid Stim Hormone (TSH) Comments: Comments: ANTI-LIVER/KIDNEY MICRO AB [id number] SER/[facility] Ftklxlgabg5376 [facility] [place], [address] TSH 16.40 {uIU/mL} (Abnormal) Range: 0.358-3.74 :44 Transferrin Comments: Comments: ANTI-LIVER/KIDNEY MICRO AB [id number] [facility] (refer to report for specific site)refer to report for address and phone number TRANSFERRN 6911 250 mg/dL (Normal) Range: 200-370 Comments: Performed at: [facility] [id number] Director: Constantine Christianson PhD, Phone: [phone] 03-Ier-619871:16 Bedside Glucose Comments: [facility] [address] [place] [address] BEDSIDE GLU 152 mg/dL (Abnormal) Range: 70-110 Comments: MANAGEMENT OF PATIENT CARE PER NURSING PROTOCOL 68-Agq-182545:45 Basic Metabolic Profile (BMP) Comments: [facility] [address] [place], [address] GAP 8 (Normal) Range: 5-15 CO2 28.0 [...] criteria.Please note revised GLUCOSE reference range /02/2018. 59-Atr-244022:45 CBC W/Diff, Automated Comments: [facility] [address] [place], [address] Absolute Lymph 1.73 {X10_3/ul} (Normal) Range: 0.83-4.51 [...] Range: 4.4-11.0 :45 Partial Thromboplast Time Comments: [address] [place], [address] PTT 33.0 s (Normal) Range: 24.1-36.2 :45 Prothrombin Time w/INR Comments: [address], [address] INR 0.9 (Normal) PROTIME 12.5 s (Normal) Range: 11.7-14.9 :45 Troponin-I Comments: [address] [place], [address] TROPONIN-I < 0.015 ng/mL Comments: TROPONIN-I EXPECTED VALUES <0.045 Negative 0.045 - 0.590 Consistent with Cardiac Damage > OR = 0.600 Critical Value Not every elevated troponin is indicative of PA. T (Normal) hesevalues should be used with clinical judgement in examiningthe patient's clinical picture for diagnosis. To establisha diagnosis of PA versus myocardial injury, there must be ademonstrated rise and/ or fall in the troponin values, inaddition to ischemic symptoms, EKG changes, new regionalwall motion abnormality, and/or angiographical evidence. PLEASE NOTE: REFERENCE RANGES EDITED 17 Liver-Kidney <1.0 {Units} Comments: PATIENT NOT FASTINGPERFORMED BY: appssavvy6370 [facility] [id number] 2:14 Microsomal Ab (Normal) Range: 0.0-20.0 Comments: Negative 0.0 - 20.0 Equivocal 20.1 - 24.9 Positive >24.9 . LKM type 1 antibodies are detected in patients with autoimmune hepatitis type 2 and in up to 8% of patients with chronic HCV infection. 43-Ajw-375192:14 HEPATIC FUNCTION PANEL Comments: PATIENT NOT FASTINGPERFORMED BY: [facility]ss[facility]vy6370 [facility] [id number] (38788) ALT (SGPT) 49 [iU]/L (Abnormal) Range: 0-32 AST (SGOT) 57 [iU]/L (Abnormal) Range: 0-40 Alkaline Phosphatase 100 [iU]/L (Normal) Range: 39-117 Bilirubin, Direct 0.14 mg/dL (Normal) Range: 0.00-0.40 Bilirubin, Total 0.4 mg/dL (Normal) Range: 0.0-1.2 Albumin 4.1 g/dL (Normal) Range: 3.5-4.8 Protein, Total 6.8 g/dL (Normal) Range: 6.0-8.5 72-Iet-029353:14 HEPATITIS PANEL (12987) Comments: PATIENT NOT FASTINGPERFORMED BY: [facility] Fcrvfg6362 [facility] [id number] Hep C Virus Ab <0.1 {s/co_ratio} (Normal) Range: 0.0-0.9 Comments: Negative: < 0.8 Indeterminate: 0.8 - 0.9 Positive: > 0.9 . The CDC recommends that a positive HCV antibody result be followed up with a HCV Nucleic Acid Amplification test (623852). Hep B Core Ab, IgM Negative (Normal) HBsAg Screen Negative (Normal) Hep A Ab, IgM Negative (Normal) 88-Mfi-094807:14 ANTIMITOCHONDRIAL ANTIBODY Comments: PATIENT NOT FASTINGPERFORMED BY: CORTEZ Griffin Bcaggp7400 [facility] [id number] (31938) Mitochondrial (M2) Antibody <20.0 {Units} (Normal) Range: 0.0-20.0 Comments: Negative 0.0 - 20.0 Equivocal 20.1 - 24.9 Positive >24.9 . Mitochondrial (M2) Antibodies are found in 90-96% of patients with primary biliary cirrhosis. 59-Awc-009431:14 TRANSFERRIN (61290) Comments: PATIENT NOT FASTINGPERFORMED BY: CORTEZ [facility]Washington [facility] [address] [id number] Transferrin 226 mg/dL (Normal) Range: 200-370 77-Mci-376282:14 GGT (GAMMA GLUTAMYLTRANSFERASE) Comments: PATIENT NOT FASTINGPERFORMED BY: [address] [id number] (56536) GGT 59 [iU]/L (Normal) Range: 0-60 51-Ous-340240:14 FERRITIN (19436) Comments: PATIENT NOT FASTINGPERFORMED BY: CORTEZ GalindoWashington [facility] Yplhrv[address] [id number] Ferritin, Serum 545 ng/mL (Abnormal) Range: 15-150 25-Jmp-176728:14 CMV IGM ANTBDY (61003) Comments: PATIENT NOT FASTINGPERFORMED BY: [address] [id number] Cytomegalovirus (CMV) Ab, IgM <30.0 AU/mL (Normal) Range: 0.0-29.9 Comments: Negative <30.0 Equivocal 30.0 - 34.9 Positive >34.9 A positive result is generally indicative of acute infection, reactivation or persistent IgM production. 93-Sxg-650788:14 CERULOPLASMIN (40782) Comments: PATIENT NOT FASTINGPERFORMED BY: CORTEZ [address] [id number] Ceruloplasmin 26.3 mg/dL (Normal) Range: 19.0-39.0 08-Vyn-254055:14 ASM (ANTI SMOOTH MUSCLE Comments: PATIENT NOT FASTINGPERFORMED BY: [facility] LabsWashington [facility] Rlyiei1714 [facility] [place] [id number] ANTIBODY) (73575) Actin (Smooth Muscle) Antibody 5 {Units} (Normal) Range: 0-19 Comments: Negative 0 - 19 Weak positive 20 - 30 Moderate to strong positive >30 . Actin Antibodies are found in 52-85% of patients with autoimmune hepatitis or chronic active hepatitis and in 22% of patients with primary biliary cirrhosis. 49-Zgd-520398:14 MELI (ANTINUCLEAR ANTIBODY) Comments: PATIENT NOT FASTINGPERFORMED BY: [facility] LabsCarondelet HealthZmktce2526 [facility] [id number] (88925) MELI Direct Negative (Normal) 77-Arl-070980:33 HgA1C , Office (86249) HgA1C , Office 7.2 % (Abnormal) Range: 4.6 - 7.1 76-Uoa-642553:38 MELI (ANTINUCLEAR ANTIBODY) Comments: PATIENT NOT FASTINGPERFORMED BY: [facility] LabsCarondelet HealthUmwica9705 [facility] [id number] (11703) MELI Direct Negative (Normal) 17-Ums-868573:38 VITAMIN B-12 (CYANOCOBALAMIN) Comments: PATIENT NOT FASTINGPERFORMED BY: [facility] LabsCarondelet HealthFrpznv8385 [facility] [id number] (57448) Vitamin B12 463 pg/mL (Normal) Range: 232-1245 26-Wzg-814134:38 TSH (51049) Comments: PATIENT NOT FASTINGPERFORMED BY: [facility] LabsMun[facility]6370 [facility] [id number] TSH 0.062 {uIU/mL} (Abnormal) Range: 0.450-4.500 68-Ubo-816686:38 SED RATE ERYTHROCYTE (12809) Comments: PATIENT NOT FASTINGPERFORMED BY: [facility] LabsCarondelet HealthPymjjk7282 [facility] [id number] Sedimentation Rate-Westergren 7 mm/h (Normal) Range: 0-40 86-Mhj-404077:38 METABOLIC PANEL, COMPREHENSIVE Comments: PATIENT NOT FASTINGPERFORMED BY: CounsylVirtua BerlinKjmsbc6791 [facility] [id number] (99857) ALT (SGPT) 52 [iU]/L (Abnormal) Range: 0-32 [...] 8-27 Glucose 134 mg/dL (Abnormal) Range: 65-99 54-Ecl-233970:38 C-REACTIVE PROTEIN (71732) Comments: PATIENT NOT FASTINGPERFORMED BY: CounsylVirtua BerlinOtlmsl7065 [facility] [id number] C-Reactive Protein, Quant 4.8 mg/L (Normal) Range: 0.0-4.9 71-Ycj-453840:38 CBC (AUTO) (19944) Comments: PATIENT NOT FASTINGPERFORMED BY: CounsylVirtua BerlinUpuyet9583 [facility] [id number] Platelets 248 {x10E3/uL} Range: 150-379 (Normal) RDW [...] mg/L (Abnormal) Comments: PATIENT NOT FASTINGPERFORMED BY: [facility] MarketingVirtua BerlinYpjcxg2244 [facility] [id number] BY: [address] [id number] 2:25 Serum Range: 0.6-2.4 Comments: Siemens ShapeUpulite 2000 Immunochemiluminometric assay (ICMA) 5-Sfk-509228:25 Immunoglobulins Comments: PATIENT NOT FASTINGPERFORMED BY: [employer] Cpafcb35[address] [place] [address] [id number] BY: Counsyl[address] [id number] Iga/Ige/Igg/Igm (GAME) (96686) Immunoglobulin E, Total 259 {IU/mL} (Abnormal) Range: 0-100 Immunoglobulin M, Qn, Serum 113 mg/dL (Normal) Range: 26-217 Immunoglobulin A, Qn, Serum 130 mg/dL (Normal) Range: 64-422 Immunoglobulin G, Qn, Serum 837 mg/dL (Normal) Range: 700-1600 4-Had-052041:25 LDH (LD) (LACTATE Comments: PATIENT NOT FASTINGPERFORMED BY: [employer] [id number] BY: [address] [id number] DEHYDROGENASE) (42859) LDH 195 [iU]/L (Normal) Range: 119-226 0-Dfx-169736:25 METABOLIC PANEL, Comments: PATIENT NOT FASTINGPERFORMED BY: CounsylVirtua BerlinMiorkt8594 [facility] [id number] BY: [facility] LabsCrystal [place] [id number] COMPREHENSIVE (24609) ALT (SGPT) 47 [iU]/L (Abnormal) Range: 0-32 [...] 8-27 Glucose 139 mg/dL (Abnormal) Range: 65-99 4-Zpd-028516:25 CBC, PLATELETS & AUT DIFF Comments: PATIENT NOT FASTINGPERFORMED BY: CounsylVirtua BerlinXxitry3845 [facility] [id number] BY: Counsyl[address] [id number] (54743) Immature Grans (Abs) 0.0 {x10E3/uL} (Normal) Range: [...] 3.77-5.28 WBC 7.2 {x10E3/uL} (Normal) Range: 3.4-10.8 50-Hjs-176694:28 Microscopic Examination Comments: PATIENT NOT FASTINGPERFORMED BY: [employer] [facility] [id number] Bacteria None seen (Normal) Mucus Threads Present (Normal) Cast Type Hyaline casts (Normal) Casts Present {/lpf} (Abnormal) Epithelial Cells (non renal) 0-10 {/hpf} (Normal) Range: 0 - 10 RBC 0-2 {/hpf} (Normal) Range: 0 - 2 WBC >30 {/hpf} (Abnormal) Range: 0 - 5 19-Clt-921924:24 URINE RANI CULTURE-RADHA COL Comments: PATIENT NOT FASTINGPERFORMED BY: [facility] Response DxDublin [place] [id number] Information: SRC:UC COUNT (71090) Antimicrobial MIHEAD (Normal) Comments: S = Susceptible; I = Intermediate; R = Resistant P = Positive; N = Negative MICS are expressed in micrograms per mL Antibiotic RSLT#1 RSLT#2 RS Susceptibility LT#3 RSLT#4Amoxicillin/Clavulanic Acid SAmpicillin RCefepime SCeftriaxone SCefuroxime SCephalothin SCiprofloxacin SGentamicin SImipenem SNitrofurantoin SPiperacillin RTetracycline STobram ycin STrimethoprim/Sulfa S Result 1 Ra[place] Comments: 5,000 Colonies/mL planticola (Abnormal) Urine Final report Culture,Comprehensive (Abnormal) 95-Mnk-830781:28 MICROALBUMIN: CREATININE RATIO Comments: PATIENT NOT FASTINGPERFORMED BY: [facility] [id number] (82816) AND (11255) Alb/Creat Ratio 215.8 {mg/g_creat} (Abnormal) Range: 0.0-30.0 Albumin, Urine 245.4 ug/mL (Normal) Creatinine, Urine 113.7 mg/dL (Normal) 11-Vax-316486:28 URINALYSIS, W/ MICRO (53672) Comments: PATIENT NOT FASTINGPERFORMED BY: [facility] [id number] Microscopic Examination See below: (Normal) Comments: Microscopic was indicated and was performed. Nitrite, Urine Negative (Normal) Urobilinogen,Semi-Qn 0.2 mg/dL (Normal) Range: 0.2-1.0 Bilirubin Negative (Normal) Occult Blood Negative (Normal) Ketones Negative (Normal) Glucose Trace (Abnormal) Protein 1+ (Abnormal) WBC Esterase 1+ (Abnormal) Appearance Clear (Normal) Urine-Color Yellow (Normal) pH 5.5 (Normal) Range: 5.0-7.5 Specific [place] 1.025 (Normal) Range: 1.005-1.030 18-Lps-009794:28 METABOLIC PANEL, COMPREHENSIVE Comments: PATIENT NOT FASTINGPERFORMED BY: [place] 5060370 [facility] [id number] (01294) ALT (SGPT) 37 [iU]/L (Abnormal) Range: 0-32 [...] Glucose, Serum 179 mg/dL (Abnormal) Range: 65-99 85-Qgy-060476:28 CBC, PLATELETS & AUT DIFF Comments: PATIENT NOT FASTINGPERFORMED BY: [facility] Aazivu5727 [facility] [id number] (93525) Immature Grans (Abs) 0.0 {x10E3/uL} (Normal) Range: [...] 3.77-5.28 WBC 9.3 {x10E3/uL} (Normal) Range: 3.4-10.8 86-Boy-087935:28 TSH (THYROID STIMULATING Comments: PATIENT NOT FASTINGPERFORMED BY: CounsylVirtua BerlinArngss7099 [facility] [id number] HORMONE) (20082) TSH 23.220 {uIU/mL} (Abnormal) Range: 0.450-4.500 85-Unr-657415:28 LIPID PANEL (77032) Comments: PATIENT NOT FASTINGPERFORMED BY: [facility] LabsM[facility]6370 [facility] [id number] LDL/HDL Ratio 1.7 {ratio_units} (Normal) Range: 0.0-3.2 Comments: LDL/HDL Ratio Men Women 1/2 Avg.Risk 1.0 1.5 Av g.Risk 3.6 3.2 2X Avg.Risk 6.2 5.0 3X Avg.Risk 8.0 6.1 LDL Cholesterol Calc 83 mg/dL (Normal) Range: 0-99 VLDL Cholesterol Priscilla 42 mg/dL (Abnormal) Range: 5-40 HDL Cholesterol 48 mg/dL (Normal) Triglycerides 208 mg/dL (Abnormal) Range: 0-149 Cholesterol, Total 173 mg/dL (Normal) Range: 100-199 59-Tsg-961495:28 CALCIFEDIOL (33382) Comments: PATIENT NOT FASTINGPERFORMED BY: [facility] Venvwi7548 [place] [id number] Vitamin D, 25-Hydroxy 25.4 ng/mL (Abnormal) Range: 30.0-100.0 Comments: Vitamin D deficiency has been defined by the [place] ofMedicine and an Endocrine Society practice guideline as alevel of serum 25-OH vitamin D less than 20 ng/mL (1,2).The Endocrine Society went on to further define vitamin Dinsufficiency as a level between 21 and 29 ng/mL (2).1. IOM ([place]ly[place] of Medicine). 2010. Dietary reference intakes for calcium and D. [place]: The National Academies Press.2. Rachel MF, Yael NC, Dunia HERRERA, et al. Evaluation, treatment, and prevention of vitamin D deficiency: an Endocrine Society clinical practice guideline. JCEM. 2010; 96(7):1911-30. 40-Yin-068550:40 Basic Metabolic Profile (BMP) Comments: 'TROP' Serial specimen #1, #2, #3, or #4: [address] [place] [address] [address] [place], [address] GAP 11 (Normal) Range: 5-15 CO2 24.0 [...] 126 mg/dLsuggests DIABETES MELLITUS per A.D.A. criteria. 82-Wze-268039:40 BNP,B-Type NATRIURETIC PEPTIDE Comments: [facility] [address] [facility] [address] [place], [place], [address] B-TYPE SANJU PEP 13.3 pg/mL (Normal) Range: 0-100 02-Lla-894529:40 CBC W/Diff, Automated Comments: [facility] [address]losdtkfys[address] [facility] [address] [place], [place], [address] Absolute Lymph 1.65 {X10_3/ul} (Normal) Range: 0.83-4.51 [...] 4.2-5.4 WBC 4.1 K/mm3 (Abnormal) Range: 4.4-11.0 54-Ggm-605239:40 Troponin-I Comments: 'TROP' Serial specimen #1, #2, #3, or #4: [address] [place] [address] [address] [place], [address] TROPONIN-I < 0.02 ng/mL (Normal) Comments: TROPONIN-I EXPECTED VALUES <0.05 NEGATIVE 0.06 - 0.59 AT RISK OF PA > OR = 0.60 SUGGEST PA 21-Hqw-688575:08 Microscopic Examination Comments: PATIENT WAS FASTINGPERFORMED BY: Counsyl Omcrit7408 [facility] [id number] Bacteria Few (Normal) Mucus Threads Present (Normal) Cast Type Hyaline casts (Normal) Casts Present {/lpf} (Abnormal) Epithelial Cells (non renal) 0-10 {/hpf} (Normal) Range: 0 - 10 RBC 0-2 {/hpf} (Normal) Range: 0 - 2 WBC 11-30 {/hpf} (Abnormal) Range: 0 - 5 59-Zby-376288:08 CALCIFIDIOL (08612) VIT D 25 Comments: PATIENT WAS FASTINGPERFORMED BY: CounsylHoly Cross HospitalSwpuip8795 [facility] [id number] Vitamin D, 25-Hydroxy 33.5 ng/mL (Normal) Range: 30.0-100.0 Comments: Vitamin D deficiency has been defined by the Clymer ofMedicine and an Endocrine Society practice guideline as alevel of serum 25-OH vitamin D less than 20 ng/mL (1,2).The Endocrine Society went on to further define vitamin Dinsufficiency as a level between 21 and 29 ng/mL (2).1. IOM (Clymer of Medicine). 2010. Dietary reference intakes for calcium and D. [place]: The National Academies Press.2. Rachel MF, Yael NC, Dunia HERRERA, et al. Evaluation, treatment, and prevention of vitamin D deficiency: an Endocrine Society clinical practice guideline. JCEM. 2010; 96(7):1911-30. 26-Zgy-826698:08 TSH (50379) Comments: PATIENT WAS FASTINGPERFORMED BY: CounsylHoly Cross HospitalCwjzyu7652 [facility] [id number] TSH 3.700 {uIU/mL} (Normal) Range: 0.450-4.500 10-Imf-714275:08 LIPID PANEL (72350) Comments: PATIENT WAS FASTINGPERFORMED BY: [facility]6370 [facility] [id number] LDL/HDL Ratio 1.8 {ratio_units} (Normal) Range: 0.0-3.2 Comments: LDL/HDL Ratio Men Women 1/2 Avg.Risk 1.0 1.5 Av g.Risk 3.6 3.2 2X Avg.Risk 6.2 5.0 3X Avg.Risk 8.0 6.1 LDL Cholesterol Calc 84 mg/dL (Normal) Range: 0-99 VLDL Cholesterol Priscilla 49 mg/dL (Abnormal) Range: 5-40 HDL Cholesterol 46 mg/dL (Normal) Triglycerides 243 mg/dL (Abnormal) Range: 0-149 Cholesterol, Total 179 mg/dL (Normal) Range: 100-199 22-Mbq-266835:08 URINALYSIS, W/ MICRO (68909) Comments: PATIENT WAS FASTINGPERFORMED BY: CounsylVirtua BerlinBwxaox2765 [facility] [id number] Microscopic Examination See below: (Normal) Comments: Microscopic was indicated and was performed. Nitrite, Urine Negative (Normal) Urobilinogen,Semi-Qn 0.2 mg/dL (Normal) Range: 0.2-1.0 Bilirubin Negative (Normal) Occult Blood Negative (Normal) Ketones Negative (Normal) Glucose Negative (Normal) Protein 2+ (Abnormal) WBC Esterase 1+ (Abnormal) Appearance Clear (Normal) Urine-Color Yellow (Normal) pH 5.5 (Normal) Range: 5.0-7.5 Specific [place] >=1.030 (Abnormal) Range: 1.005-1.030 92-Vnq-328168:08 MICROALBUMIN: CREATININE RATIO Comments: PATIENT WAS FASTINGPERFORMED BY: [facility]6370 [facility] [id number] (16781) AND (84191) Microalb/Creat Ratio 246.3 {mg/g_creat} (Abnormal) Range: 0.0-30.0 Microalbumin, Urine 433.7 ug/mL (Normal) Comments: Results confirmed ondilution. Creatinine, Urine 176.1 mg/dL (Normal) 71-Ekw-325817:08 METABOLIC PANEL, COMPREHENSIVE Comments: PATIENT WAS FASTINGPERFORMED BY: youcalcSaint Elizabeth Hebron [id number] (84267) ALT (SGPT) 26 [iU]/L (Normal) Range: 0-32 [...] Glucose, Serum 158 mg/dL (Abnormal) Range: 65-99 50-Bhk-188472:08 CBC W/AUTO DIFF WBC (07057) Comments: PATIENT WAS FASTINGPERFORMED BY: youcalcfl [place] [id number] Immature Grans (Abs) 0.0 {x10E3/uL} (Normal) Range: [...] (Normal) Range: 3.4-10.8 :31 HgA1C , Office (23476) HgA1C , Office 6.6 % (Normal) Range: 4.6 - 7.1 :31 Blood Glucose , Office (67603) Blood Glucose , Office 143 (Normal) :45 CBC W/Diff, Automated Comments: [facility] [address] [place], [address] Absolute Lymph 1.46 {X10_3/ul} (Normal) [...] 4.2-5.4 WBC 12.9 K/mm3 (Abnormal) Range: 4.4-11.0 7-Eff-557870:45 Comprehensive Metabolic Profil Comments: [facility] [address] [place], [address] GAP 8 (Normal) Range: 5-15 CO2 27.0 [...] 126 mg/dLsuggests DIABETES MELLITUS per A.D.A. criteria. 2-Fbj-734941:45 Prothrombin Time w/INR Comments: [facility] [address] [place], [place], [address] INR 0.9 (Normal) PROTIME 11.6 s (Abnormal) Range: 11.7-14.9 3-Zli-813758:12 HgA1C , Office (62827) HgA1C , Office 6.5 % (Normal) Range: 4.6 - 7.1 4-Syl-912615:12 Blood Glucose , Office (99994) Blood Glucose , Office 122 (Normal) :39 Lipid Profile Comments: [facility] [address] [place], [place], [address] VLDL 39 mg/dL (Normal) Range: 5-40 LDL [...] report for address and phone number METHYLM [phone] nmol/L (Normal) Range: 0-378 Comments: Performed at: [address] [id number] Director: Frantz Josue MD, Phone: [phone] Vitamin B12 531 pg/mL (Normal) Comments: [facility] [address] [place], [address] Range: 211-911 :39 Vitamin D,25 Hydroxy Comments: [facility] [address] [place], [address] Vitamin D 25-OH 44.7 ng/mL (Normal) Comments: Vitamin D 25(OH) Status Range Deficiency <20 ng/mL (50nmol/L) Insuffciency 20 - 30 ng/mL (50 - 75 nmol/L) Sufficiency 30 - 100 ng/mL (75 - 250 nmol/L) Toxicity >100 ng/mL (>250 nmol/L) :29 Bedside Glucose Comments: [facility] LaboratoryPoint of Lyvz[address] [place] [address] BEDSIDE GLU 139 mg/dL (Abnormal) Range: 70-110 Comments: No Action RequiredMANAGEMENT OF PATIENT CARE PER NURSING PROTOCOL COLON BIOPSY (CHOOSE See Note (Normal) Comments: [facility] [address] [place], [address] :54 SITE) Comments: Patient: MARICRUZ GRIGSBY : 1940 (76/F) Acct Num: [id number] Phys: Constantine Saunders Unit Num: [id number] Loc: LABSPEC Specimen: [id number] Received: 11/05/16 - 1631 Spe c Type: [...] one cassette. / RY:edita 11/06/16 TC:1 CPT: 43077 x2 HEADER OPERATION: Colonoscopy with polypectomy PRE-OP [...] Signed Zane Elliott 11/07/16 <signature on file> 57-Hqa-525303:47 CBC W/Diff, Automated Comments: [facility] [address] [place], [place], [address] Absolute Lymph 1.88 {X10_3/ul} (Normal) Range: 0.83-4.51 [...] 4.2-5.4 WBC 8.8 K/mm3 (Normal) Range: 4.4-11.0 66-Wwi-181201:42 Comprehensive Metabolic Profil Comments: Order Date: 10/10/16Order Info: 0786-1 - *CMP Complete Metabolic PanelOrder Info: 31845-7 - *IBC Iron \E AND E\ Total Iron Binding CapacityOrder Info: 2276-4 - *FerritinComments: Reason:Order Date: 10/10/16Order Info: 92242-6 - *[place]DA [place] Lamda Light ChainsComments: Reason:[facility] [address] [place], [address] GAP (Normal) Range: 5-15 CO2 28.0 mmol/L (Normal) [...] <126 mg/dLsuggests IMPAIRED HOMEOSTASIS per A.D.A. criteria. 76-Vtv-148963:42 Ferritin Comments: Order Date: 10/10/16Order Info: 0786-1 - *CMP Complete Metabolic PanelOrder Info: 66769-7 - *IBC Iron \E AND E\ Total Iron Binding CapacityOrder Info: 2276-4 - *FerritinComments: Reason:Order Date: 10/10/16Order Info: 42448-8 - *[place] - [place] Lamda Light ChainsComments: Reason:[facility] [address] [facility]. [place], [place], [address] FERRITIN 45 ng/mL (Normal) Range: 8-252 36-Tja-319431:42 DEEPALI + Protein Elect, Serum Comments: Order Date: 10/10/16Order Info: 0282-1 - *IMEL DEEPALI + Prot Elec, Serum 1495Order Info: 58975-6 - *[place] Lamda Light ChainsOrder Date: 10/10/16Order Info: 0282-1 - *IMEL DEEPALI + Prot Elec, Serum 1495Order Info: 54041-0 - *[place] Lamda Light ChainsOrder Date: 10/10/16Order Info: 03422-7 - *[place] Lamda Light ChainsIs Patient Fasting? NComments: Reason:[facility] (refer to report for specific site)refer to report for address and phone number NOTE: Comment (Normal) Comments: Protein electrophoresis scan will follow via computer,mail, or power lineman delivery. DEEPALI RESULT,S Comment (Normal) Comments: Immunofixation shows IgG monoclonal protein with lambdalight chain specificity. A/G RATIO 1.4 (Normal) Range: 0.7-1.7 GLOBULIN, TOTAL 2.8 g/dL (Normal) Range: 2.2-3.9 M-SPIKE 0.3 g/dL (Abnormal) GAMMA GLOBULIN 0.8 g/dL (Normal) Range: 0.4-1.8 BETA GLOBULIN 0.9 g/dL (Normal) Range: 0.7-1.3 IYOQR-1-ZRLU 0.9 g/dL (Normal) Range: 0.4-1.0 XAQGY-0-UPRT 0.2 g/dL (Normal) Range: 0.0-0.4 ALBUMIN 3.7 g/dL (Normal) Range: 2.9-4.4 IMMUNOGL M 100 mg/dL (Normal) Range: 26-217 IMMUNO A 106 mg/dL (Normal) Range: 64-422 IMMUNO G 693 mg/dL (Abnormal) Range: 700-1600 PROTEIN,TOTAL 6.5 g/dL (Normal) Range: 6.0-8.5 57-Xvi-680360:42 Iron+Iron Binding Capacity Comments: Order Date: 10/10/16Order Info: 0786-1 - *CMP Complete Metabolic PanelOrder Info: [id number] - *IBC Iron \E AND E\ Total Iron Binding CapacityOrder Info: 2276-4 - *FerritinComments: Reason:Order Date: 10/10/16Order Info: 92673-3 - *[place] - [place] Lamda Light ChainsComments: Reason:[facility] [address] [place], [place], [address] IRON SATURATION 15.9 % (Normal) Range: 15.0-55.0 IRON 49 ug/dL (Abnormal) Range: 50-170 TIBC 309 ug/dL (Normal) Range: 250-450 54-Ece-232507:42 [place] Lambda Light Chains Comments: Order Date: 10/10/16Order Info: 0282-1 - *IMEL DEEPALI + Prot Elec, Serum 1495Order Info: 62653-3 - *[place] Lamda Light ChainsOrder Date: 10/10/16Order Info: 0282-1 - *IMEL DEEPALI + Prot Elec, Serum 1495Order Info: 67796-2 - *[place] Lamda Light ChainsOrder Date: 10/10/16Order Info: 79235-7 - *[place] Lamda Light ChainsIs Patient Fasting? NComments: Reason:[facility] (refer to report for specific site)refer to report for address and phone number KAPPA/LAMBDA % 0.98 (Normal) Range: 0.26-1.65 Comments: Performed at: - [facility] [address] [id number] Director: Constantine Christianson PhD, Phone: [phone] FR LAMBDA LT CH 19.06 mg/L (Normal) Range: 5.71-26.30 FR KAPPA LT CHN 18.62 mg/L (Normal) Range: 3.30-19.40 91-Qwv-422783:06 VITAMIN B-12 (CYANOCOBALAMIN) Comments: PATIENT NOT FASTINGPERFORMED BY: [facility] [id number] (34376) Vitamin B12 709 pg/mL (Normal) Range: 211-946 65-Ted-280421:45 Blood Glucose , Office (32309) Blood Glucose , Office 104 (Normal) 14-Crs-021989:45 HgA1C , Office (47974) HgA1C , Office 6.7 % (Normal) Range: 4.6 - 7.1 :54 CBC W/Diff, Automated Comments: [facility] [address] [place], [address] Absolute Lymph 1.51 {X10_3/ul} (Normal) [...] 4.2-5.4 WBC 7.0 K/mm3 (Normal) Range: 4.4-11.0 74-Fbm-61293:54 Comprehensive Metabolic Profil Comments: [facility] [address] [place], [place], [address] GAP 8 (Normal) Range: 5-15 CO2 28.0 [...] 126 mg/dLsuggests DIABETES MELLITUS per A.D.A. criteria. 93-Pse-39790:54 Lipid Profile Comments: [facility] [address] [place], [address] VLDL 38 mg/dL (Normal) Range: 5-40 LDL [...] High Risk :54 Microalb:Creat Ratio,Random UR Comments: [facility] [address]dmpvqr[address] [place], [address] MALB:CREAT 223.2 {mg/g_CRE} (Abnormal) MICROALBUMIN,UR 250.0 mg/L (Normal) UR CREAT 112.00 mg/dL (Normal) :54 Thyroid Stim Hormone (TSH) Comments: [facility] [address] [place], [address] TSH 1.13 {uIU/mL} (Normal) Range: 0.358-3.74 :54 Urinalysis, Complete Comments: How was Urine Obtained? CLEAN [facility] [address]qkv[address] [place], [address] MUCUS, URINE 0 SEEN {/hpf} (Normal) [...] Yellow (Normal) :54 Vitamin D,25 Hydroxy Comments: [facility] [address] [place], [address] Vitamin D 25-OH 31.6 ng/mL (Normal) Comments: Vitamin D 25(OH) Status Range Deficiency <20 ng/mL (50nmol/L) Insuffciency 20 - 30 ng/mL (50 - 75 nmol/L) Sufficiency 30 - 100 ng/mL (75 - 250 nmol/L) Toxicity >100 ng/mL (>250 nmol/L) 94-Wfw-978467:07 VITAMIN B-12 (CYANOCOBALAMIN) Comments: PATIENT NOT FASTINGPERFORMED BY: [facility] Hospit[facility]in6370 [facility] [id number] (45215) Vitamin B12 1119 pg/mL (Abnormal) Range: 211-946 28-Ahv-529715:23 Microscopic Examination Comments: PATIENT WAS FASTINGPERFORMED BY: [facility]6370 [facility] [id number] Bacteria Few (Normal) Mucus Threads Present (Normal) Epithelial Cells (non renal) 0-10 {/hpf} (Normal) Range: 0 - 10 RBC 0-2 {/hpf} (Normal) Range: 0 - 2 WBC >30 {/hpf} (Abnormal) Range: 0 - 5 54-Rgn-453931:23 VITAMIN B-12 (CYANOCOBALAMIN) Comments: PATIENT WAS FASTINGPERFORMED BY: [facility]6370 [facility] [id number] (79640) Vitamin B12 >2000 pg/mL (Abnormal) Range: 211-946 29-Lte-329940:23 TSH (80531) Comments: PATIENT WAS FASTINGPERFORMED BY: [facility]6370 [facility] [id number] TSH 5.380 {uIU/mL} (Abnormal) Range: 0.450-4.500 22-Muq-933540:23 URINALYSIS, W/ MICRO (01782) Comments: PATIENT WAS FASTINGPERFORMED BY: [facility]6370 [facility] [id number] Microscopic Examination See below: (Normal) Comments: Microscopic was indicated and was performed. Nitrite, Urine Negative (Normal) Urobilinogen,Semi-Qn 0.2 mg/dL (Normal) Range: 0.2-1.0 Bilirubin Negative (Normal) Occult Blood Negative (Normal) Ketones Negative (Normal) Glucose Negative (Normal) Protein Trace (Normal) WBC Esterase 2+ (Abnormal) Appearance Clear (Normal) Urine-Color Yellow (Normal) pH 6.0 (Normal) Range: 5.0-7.5 Specific [place] 1.022 (Normal) Range: 1.005-1.030 23-Npr-619621:23 MICROALBUMIN: CREATININE RATIO Comments: PATIENT WAS FASTINGPERFORMED BY: [facility]6370 [facility] [id number] (42900) AND (55795) Microalb/Creat Ratio 24.2 {mg/g_creat} (Normal) Range: 0.0-30.0 Microalbumin, Urine 35.4 ug/mL (Normal) Creatinine, Urine 146.0 mg/dL (Normal) :23 METABOLIC PANEL, COMPREHENSIVE Comments: PATIENT WAS FASTINGPERFORMED BY: [facility]6370 [facility] [id number] (77124) ALT (SGPT) 25 [iU]/L (Normal) Range: 0-32 [...] Glucose, Serum 143 mg/dL (Abnormal) Range: 65-99 97-Obg-735835:23 CBC W/AUTO DIFF WBC (89991) Comments: PATIENT WAS FASTINGPERFORMED BY: LabCoVirtua BerlinKtvfov3019 [facility] [id number] Immature Grans (Abs) 0.0 {x10E3/uL} (Normal) Range: [...] 3.77-5.28 WBC 7.4 {x10E3/uL} (Normal) Range: 3.4-10.8 94-Yco-701800:23 CALCIFIDIOL (42699) VIT D 25 Comments: PATIENT WAS FASTINGPERFORMED BY: LabCoVirtua BerlinKkeyrr2147 [facility] [id number] Vitamin D, 25-Hydroxy 28.9 ng/mL (Abnormal) Range: 30.0-100.0 Comments: Vitamin D deficiency has been defined by the Clymer ofOhio Valley Surgical Hospitalcine and an Endocrine Society practice guideline as alevel of serum 25-OH vitamin D less than 20 ng/mL (1,2).The Endocrine Society went on to further define vitamin Dinsufficiency as a level between 21 and 29 ng/mL (2).1. IOM (Clymer of Medicine). 2010. Dietary reference intakes for calcium and D. [place]: The National Academies Press.2. Rachel MF, Yael NC, Dunia HERRERA, et al. Evaluation, treatment, and prevention of vitamin D deficiency: an Endocrine Society clinical practice guideline. JCEM. 2010; 96(7):1911-30. :22 HgA1C , Office (02147) HgA1C , Office 7.1 % (Normal) Range: 4.6 - 7.1 :22 Blood Glucose , Office (48656) Blood Glucose , Office 171 (Normal) 9-Yuy-246104:10 Basic Metabolic Profile (BMP) Comments: Serial Specimen #1, #2 or #3? 1'TROP' Serial specimen #1, #2, #3, or #4: 1[facility] [address] [place], [address] GAP 8 (Normal) Range: 5-15 CO2 28.0 [...] 126 mg/dLsuggests DIABETES MELLITUS per A.D.A. criteria. 8-Tls-111073:10 CBC W/Diff, Automated Comments: [facility] [address] [place], [place], [address] Absolute Lymph 1.32 {X10_3/ul} (Normal) Range: 0.83-4.51 [...] Serial specimen #1, #2, #3, or #4: [address] [place] [address] [address] [place], [address] CKRI 1.3 % (Normal) Range: [...] Serial specimen #1, #2, #3, or #4: [address] [place] [address] [address] [place], [address] TROPONIN-I < 0.02 ng/mL (Normal) Comments: TROPONIN-I EXPECTED VALUES <0.05 NEGATIVE 0.06 - 0.59 AT RISK OF PA > OR = 0.60 SUGGEST PA 6-Epg-848709:55 Blood Glucose , Office (89418) Blood Glucose , Office 117 (Normal) 7-Ufr-433880:36 HgA1C , Office (91089) HgA1C , Office 7.1 % (Normal) Range: 4.6 - 7.1 :52 CBC W/Diff, Automated Comments: CBCD WITH WBC PER ORDEROhio [facility] Hospital [address]brvgvbb[address] [place], [address] Absolute Lymph 1.67 {X10_3/ul} (Normal) [...] Range: 4.4-11.0 30-Nov-20156:52 Comprehensive Metabolic Profil Comments: [facility] [address] [place], [address] GAP 10 (Normal) Range: 5-15 [...] specificity.Bence Jorge Protein positive; lambda type.Performed at: [place] [address] 1269[facility] Dire ctor: Constantine Christianson PhD, Phone: [phone] Immunofixation, Serum Comments: [facility] (refer to report for specific site)refer to report for address and phone number DEEPALI RESULT,S Comment (Normal) Comments: Immunofixation shows IgG monoclonal protein with lambdalight chain specificity. IMMUNOGL M 112 mg/dL (Normal) Range: 26-217 IMMUNO A 110 mg/dL (Normal) Range: 64-422 IMMUNO G 783 mg/dL (Normal) Range: 700-1600 :52 [place] Lambda Light Chains Comments: [facility] (refer to report for specific site)refer to report for address and phone number KAPPA/LAMBDA % 1.03 (Normal) Range: 0.26-1.65 FR LAMBDA LT CH 21.11 mg/L (Normal) Range: 5.71-26.30 FR KAPPA LT CHN 21.66 mg/L (Abnormal) Range: 3.30-19.40 :52 Lipid Profile Comments: [facility] [address] [place], [address] ; review OV 12/02/15 VLDL 35 [...] High Risk :52 Microalb:Creat Ratio,Random UR Comments: [facility] [address] [place], [address] MALB:CREAT 44.5 {mg/g_CRE} (Abnormal) MICROALBUMIN,UR 68.1 mg/L (Normal) UR CREAT 153.00 mg/dL (Normal) :52 Vitamin B12 268 pg/mL (Normal) Comments: [facility] [address] [place], [address] Range: 211-911 Comments: ADDENDA: normal and has f/u this saturday:52 Vitamin D,25 Hydroxy Comments: [facility] [address] [place], [address] Vitamin D 25-OH 48.8 ng/mL (Normal) Comments: Vitamin D 25(OH) Status Range Deficiency <20 ng/mL (50nmol/L) Insuffciency 20 - 30 ng/mL (50 - 75 nmol/L) Sufficiency 30 - 100 ng/mL (75 - 250 nmol/L) Toxicity >100 ng/mL (>250 nmol/L) :15 Basic Metabolic Profile (BMP) Comments: [facility] [address] [place], [address] GAP 10 (Normal) Range: 5-15 [...] A.D.A. criteria. :15 CBC W/Diff, Automated Comments: [facility] [address] [place], [place], [address] RED CELL MORPH NORM C+C {NORMAL} (Normal) [...] 4.2-5.4 WBC 11.4 K/mm3 (Abnormal) Range: 4.4-11.0 46-Kdb-542119:08 HgA1C , Office (94836) HgA1C , Office 6.8 % (Normal) Range: 4.6 - 7.1 5-Vta-125489:30 FERRITIN (55802) Comments: PATIENT WAS FASTINGPERFORMED BY: CounsylVirtua BerlinNwtxuj6610 [facility] [id number] Ferritin, Serum 121 ng/mL (Normal) Range: 15-150 9-Kwm-102465:30 IRON (30750) Comments: PATIENT WAS FASTINGPERFORMED BY: CounsylVirtua BerlinBvfwws9536 [facility] [id number] Iron, Serum 56 ug/dL (Normal) Range: 35-155 [...] - 159 >60 years 27 - 139 7-Ozw-099594:30 TSH (13853) Comments: PATIENT WAS FASTINGPERFORMED BY: Counsyl Pehwln2559 [facility] [id number] TSH 1.660 {uIU/mL} (Normal) Range: 0.450-4.500 1-Wyj-816603:30 LIPID PANEL (55405) Comments: PATIENT WAS FASTINGPERFORMED BY: [address] [facility] [id number] LDL/HDL Ratio 2.1 {ratio_units} (Normal) Range: 0.0-3.2 [...] Cholesterol, Total 190 mg/dL (Normal) Range: 100-199 7-Pzy-662761:30 METABOLIC PANEL, COMPREHENSIVE Comments: PATIENT WAS FASTINGPERFORMED BY: [employer] Jaojaj1602 [facility] [id number] (53607) ALT (SGPT) 24 [iU]/L (Normal) Range: 0-32 [...] Glucose, Serum 122 mg/dL (Abnormal) Range: 65-99 5-Ikh-488847:30 Vitamin D Hydroxy (38113) Comments: PATIENT WAS FASTINGPERFORMED BY: [employer] [facility] [id number] Vitamin D, 25-Hydroxy 25.3 ng/mL (Abnormal) Range: 30.0-100.0 Comments: Vitamin D deficiency has been defined by the Clymer ofOhio Valley Surgical Hospitalcine and an Endocrine Society practice guideline as alevel of serum 25-OH vitamin D less than 20 ng/mL (1,2).The Endocrine Society went on to further define vitamin Dinsufficiency as a level between 21 and 29 ng/mL (2).1. IOM (Clymer of Medicine). 2010. Dietary reference intakes for calcium and D. [place]: The National Academies Press.2. Rachel MF, Yael NC, Dunia HERRERA, et al. Evaluation, treatment, and prevention of vitamin D deficiency: an Endocrine Society clinical practice guideline. JCEM. 2010; 96(7):1911-30. 2-Oly-972651:30 CBC W/AUTO DIFF WBC Comments: PATIENT WAS FASTINGPERFORMED BY: [facility] DxDublin [place] [id number] Information: [id number] (21180) Immature Grans (Abs) 0.0 {x10E3/uL} (Normal) Range: [...] 3.77-5.28 WBC 8.2 {x10E3/uL} (Normal) Range: 3.4-10.8 8-Gpl-281935:30 serum free light chains Comments: PATIENT WAS FASTINGPERFORMED BY: CORTEZ [facility]6370 [facility] [id number] (42026) [place]/Lambda Ratio,S 0.81 (Normal) Range: 0.26-1.65 Free Lambda Lt Chains,S 17.93 mg/L (Normal) Range: 5.71-26.30 Free [place] Lt Chains,S 14.55 mg/L (Normal) Range: 3.30-19.40 4-Nmf-257975:08 urine immunofixation (03231) Comments: PATIENT NOT FASTINGPERFORMED BY: [facility]6370 [facility] [id number] Information: SRC:UR [id number] DEEPALI Interpretation:U IFEGL (Normal) Comments: 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 [id number] serum immunofixation ([id number]) Comments: PATIENT WAS FASTINGPERFORMED BY: [facility] [facility] [id number] Immunoglobulin M, Qn, Serum 99 mg/dL (Normal) Range: 40-230 Immunoglobulin A, Qn, Serum 107 mg/dL (Normal) Range: 91-414 Immunoglobulin G, Qn, Serum 814 mg/dL (Normal) Range: 700-1600 Immunofixation Result, Serum IFEGL (Normal) Comments: Immunofixation shows IgG monoclonal protein with lambda light chainspecificity. :49 CBC W/Diff, Automated Comments: [facility] [id number] [place], [place], [id number] Absolute Lymph 0.99 {X10_3/ul} (Normal) Range: 0.83-4.51 [...] K/mm3 (Normal) Range: 4.4-11.0 :49 Ferritin Comments: [facility] [id number] [place], [address] FERRITIN 80 ng/mL (Normal) Range: 8-252 :49 Hemoglobin A1c Comments: [facility] [address] [place], [address] HGB A1C 6.4 % (Abnormal) Range: 4.2-6.3 :49 Iron Comments: [facility] [address] [place], [address] IRON 43 ug/dL (Abnormal) Range: 50-170 :49 Iron Binding Capacity,Total Comments: [address] [place], [address] TIBC 336 ug/dL (Normal) Range: 250-450 :49 Protein Electro.Ur-Random Comments: [facility] (refer to report for specific site)refer to report for address and phone number M-SPIKE,U Test not performed (Normal) GAMMA GLOB,U Test not performed (Normal) Comments: Test not performed BETA GLOB,U Test not performed (Normal) Comments: Test not performed TBKIO-8-JCKW,U Test not performed (Normal) Comments: Test not performed GFRGM-3-UYVU,U Test not performed (Normal) Comments: Test not [...] electrophoresis scan will follow via computer,mail, or power lineman delivery. NOTE: Comment (Normal) Comments: The SPE [...] electrophoresis scan will follow via computer,mail, or power lineman delivery. A/G RATIO 1.5 (Normal) Range: 0.7-2.0 [...] 6.0-8.5 :49 Thyroid Stim Hormone (TSH) Comments: [facility] [address] [place], [place], [id number] TSH 4.43 {uIU/mL} (Abnormal) Range: 0.358-3.74 :49 Vitamin B12 431 pg/mL (Normal) Comments: [facility] [address] [place], [place], [address] Range: 211-911 Comments: ADDENDA: has apt today :58 AFP, Tumor Marker Comments: Is [facility] ? [facility] (refer to report for specific site)refer to report for address and phone number AFP TUMOR 2253 4.9 ng/mL (Normal) Range: 0.0-8.3 Comments: [facility] ECLIA methodologyPerformed at: - [facility] [address] [id number] Director: Constantine Christianson PhD, Phone: [phone] 38-Xrv-47865:58 CBC W/Diff, Automated Comments: [facility] [address] [place], [place], [id number] Absolute Lymph 1.46 {X10_3/ul} (Normal) Range: 0.83-4.51 [...] Range: 4.4-11.0 :58 Comprehensive Metabolic Profil Comments: [facility] [address] [place], [place], [address] GAP 7 (Normal) Range: 5-15 CO2 28.0 [...] per A.D.A. criteria. :58 Lipid Profile Comments: [facility] [address] [place], [place], [address] ; non-emergent and has apth this week [...] :58 Vitamin B12 278 pg/mL (Normal) Comments: [facility] [address] [place], [address] Range: 211-911 :58 Vitamin D,25 Hydroxy Comments: [facility] [address] [place], [address] Vitamin D 25-OH 38.4 ng/mL (Normal) Comments: Vitamin D 25(OH) Status Range Deficiency <20 ng/mL (50nmol/L) Insuffciency 20 - 30 ng/mL (50 - 75 nmol/L) Sufficiency 30 - 100 ng/mL (75 - 250 nmol/L) Toxicity >100 ng/mL (>250 nmol/L) 83-Lvs-784550:07 HgA1C , Office (34503) HgA1C , Office 6.5 % (Normal) Range: 4.6 - 7.1 :43 AFP, Tumor Marker Comments: Is Patient ? NTest performed at:[facility] Mfmavqlyep[address]01 [facility] [place] [address] AFP TUMOR 2253 4.8 ng/mL (Normal) Range: 0.0-8.3 Comments: [facility] ECLIA methodologyPerformed at: [facility] - [facility] [address] [id number] Director: Arnold Jefferson PhD, Phone: [phone] CBC W/Diff, Automated Comments: Test performed at:[facility] [address] [place] [address] Absolute Lymph 1.16 {X10_3/ul} (Normal) [...] 4.2-5.4 WBC 5.6 K/mm3 (Normal) Range: 4.4-11.0 42-Jwo-33496:43 Comprehensive Metabolic Profil Comments: Test performed at:[facility] [address] [place], [place] [address] GAP 11 (Normal) Range: 5-15 CO2 24.0 [...] criteria. :43 Lipid Profile Comments: Test performed at:[facility] [address] [place] [address] VLDL 61 mg/dL (Abnormal) Range: 5-40 [...] :43 Microalb:Creat Ratio,Random UR Comments: Test performed at:[facility] [address] [place] [address] MALB:CREAT 15.9 {mg/g_CRE} (Normal) MICROALBUMIN,UR 19.2 mg/L (Normal) UR CREAT 120.3 mg/dL (Normal) 65-Jat-05784:43 Thyroid Stim Hormone (TSH) Comments: Test performed at:[facility] Kqbq[address]uv[address] [facility] [place] [address] TSH 2.19 {uIU/mL} (Normal) Range: 0.358-3.74 :43 Vitamin B12 261 pg/mL (Normal) Comments: Test performed at:[facility] [address] [place] [address] Range: 211-911 Comments: ADDENDA: nl and pt has apt tomorrow :43 Vitamin D,25 Hydroxy Comments: Test performed at:[facility] [address] [place] [address] Vitamin D 25-OH 30.9 ng/mL (Normal) Comments: Vitamin D 25(OH) Status Range Deficiency <20 ng/mL (50nmol/L) Insuffciency 20 - 30 ng/mL (50 - 75 nmol/L) Sufficiency 30 - 100 ng/mL (75 - 250 nmol/L) Toxicity >100 ng/mL (>250 nmol/L) :38 HgA1C , Office (80430) HgA1C , Office 6.7 % (Normal) Range: 4.6 - 7.1 :56 AFP, Tumor Marker Comments: Is Patient ? NTest performed at:[facility] [address] [place] [address] ; appt 02/15 AFP TUMOR 2253 4.8 ng/mL (Normal) Range: 0.0-8.3 Comments: Patricia ECLIA methodologyPerformed at: [facility] - [facility] [address] [id number] Director: Arnold Jefferson PhD, Phone: [phone] :[phone] CBC W/Diff, Automated Comments: Test performed at:[facility] Rg[address] [facility] [place] [address] Absolute Lymph 2.37 {X10_3/ul} (Normal) Range: [...] 4.4-11.0 :56 Lipid Profile Comments: Test performed at:[facility] [address] [place] [address] VLDL 26 mg/dL (Normal) Range: [...] 200-240 mg/dL Borderline >240 mg/dL High Risk 23-Igh-51952:56 Partial Thromboplast Time Comments: Test performed at:[facility] [address] [place] [address] PTT 30.1 s (Normal) Range: 24.1-36.2 :56 Prothrombin Time w/INR Comments: Test performed at:[facility] [address] [place] [address] INR 1.0 (Normal) PROTIME 12.8 s (Normal) Range: 11.7-14.9 :56 Thyroid Stim Hormone (TSH) Comments: Test performed at:[facility] [address] [place] [address] TSH 5.17 {uIU/mL} (Abnormal) Range: 0.358-3.74 :56 Vitamin B12 293 pg/mL (Normal) Comments: Test performed at:[facility] [address] [place] [address] Range: 211-911 :56 Vitamin D,25 Hydroxy Comments: Test performed at:[facility] [address] [place] [address] Vitamin D 25-OH 32.0 ng/mL (Normal) Comments: Vitamin D 25(OH) Status Range Deficiency <20 ng/mL (50nmol/L) Insuffciency 20 - 30 ng/mL (50 - 75 nmol/L) Sufficiency 30 - 100 ng/mL (75 - 250 nmol/L) Toxicity >100 ng/mL (>250 nmol/L) 77-Rtx-179077:07 HgA1C , Office (71984) HgA1C , Office 6.3 % (Normal) Range: 4.6 - 7.1 :33 CBC W/Diff, Automated Comments: Test performed at:[facility] [address] [place] [address] ; non- emergent till apt Absolute [...] 4.2-5.4 WBC 7.3 K/mm3 (Normal) Range: 4.4-11.0 72-Epl-92020:33 Comprehensive Metabolic Profil Comments: Test performed at:[facility] [address] [place] [address] GAP 4 (Abnormal) Range: 5-15 CO2 28.0 [...] criteria. :33 Lipid Profile Comments: Test performed at:[facility] [address] [place] [address] VLDL 29 mg/dL (Normal) Range: 5-40 [...] B12 394 pg/mL (Normal) Comments: Test performed at:[facility] [address] [place] [address] Range: 211-911 :33 Vitamin D,25 Hydroxy Comments: Test performed at:[facility] [address] [place] [address] Vitamin D 25-OH 39.6 ng/mL (Normal) Comments: Vitamin D 25(OH) Status Range Deficiency <20 ng/mL (50nmol/L) Insuffciency 20 - 30 ng/mL (50 - 75 nmol/L) Sufficiency 30 - 100 ng/mL (75 - 250 nmol/L) Toxicity >100 ng/mL (>250 nmol/L) :10 HgA1C , Office (03918) HgA1C , Office 6.4 % (Normal) Range: [...] CHOL 167 mg/dL (Normal) Comments: <200 mg/dL Qouhvlovi047-287 mg/dL Borderline>240 mg/dL High Risk TRIG 200 mg/dL (Abnormal) Range: 0-199 Comments: Serum Triglycerides Reference IntervalNormal <150 mg/dLBorderline high 150 - 199 mg/dLHigh 200 - 499 mg/ dLVery High > or = 500 mg/dL :42 TIBC 275 ug/dL (Normal) Range: 250-450 :42 TSH 2.12 {uIU/mL} (Normal) Range: 0.358-3.74 60-Niq-963055:10 FERRITIN (63363) Comments: PATIENT NOT FASTINGPERFORMED BY: [place] 5060370 [facility] [id number] Ferritin, Serum 133 ng/mL (Normal) Range: 15-150 68-Tym-724118:10 IRON BINDING CAPACITY Comments: PATIENT NOT FASTINGPERFORMED BY: [facility] [place] [address] [id number] Information: [id number] (TIBC) (71491) Iron Saturation 20 % (Normal) Range: 15-55 Iron, Serum 62 ug/dL (Normal) Range: 35-155 UIBC 241 ug/dL (Normal) Range: 150-375 Iron Bind.Cap.(TIBC) 303 ug/dL (Normal) Range: 250-450 22-Xcn-648980:10 VITAMIN B-12 (CYANOCOBALAMIN) Comments: PATIENT NOT FASTINGPERFORMED BY: [facility]6370 [facility] [id number] (85919) Vitamin B12 421 pg/mL (Normal) Range: 211-946 80-Ivz-741573:10 TSH (17256) Comments: PATIENT NOT FASTINGPERFORMED BY: [facility]6370 [facility] [id number] TSH 1.150 {uIU/mL} (Normal) Range: 0.450-4.500 59-Srk-676482:37 HgA1C , Office (78650) HgA1C , Office 6.1 % (Normal) Range: 4.6 - 7.1 7-Srk-116118:10 CBC with manual diff Comments: PATIENT WAS FASTINGPERFORMED BY: [facility]6370 [facility] [id number] Information: [id number] (54818) Immature Grans (Abs) 0.0 {x10E3/uL} (Normal) Range: [...] 3.77-5.28 WBC 8.2 {x10E3/uL} (Normal) Range: 3.4-10.8 4-Ixa-796612:10 Metabolic Panel, Comprehensive Comments: PATIENT WAS FASTINGPERFORMED BY: LabCoVirtua BerlinAzfjna8065 [facility] [id number] (20148) ALT (SGPT) 11 [iU]/L (Normal) Range: 0-32 [...] Glucose, Serum 129 mg/dL (Abnormal) Range: 65-99 3-Uvh-437874:10 Lipid Panel (66810) Comments: PATIENT WAS FASTINGPERFORMED BY: [facility] Egivnj9983 [facility] [id number] LDL/HDL Ratio 1.4 {ratio_units} (Normal) Range: 0.0-3.2 [...] METABOLIC PANEL, Comments: PATIENT NOT FASTINGPERFORMED BY: [employer]70 [facility] [id number] Information: [id number] COMPREHENSIVE (50131) ALT (SGPT) 15 [iU]/L (Normal) Range: 0-32 [...] 133 mg/dL (Abnormal) Range: 65-99 :14 TSH (02328) Comments: PATIENT NOT FASTINGPERFORMED BY: Counsyl Hwukpb6517 [facility] [id number] TSH 0.182 {uIU/mL} (Abnormal) Range: 0.450-4.500 :40 [...] CHOL 99 mg/dL (Normal) Comments: <200 mg/dL Gsjiencms818-116 mg/dL Borderline>240 mg/dL High Risk :40 MIACRE [...] CHOL 148 mg/dL (Normal) Comments: <200 mg/dL Btkhisndv723-004 mg/dL Borderline>240 mg/dL High Risk HDL 46 [...] - 250 nmol/L)Toxicity >100 ng/mL (>250 nmol/L) 80-Yjf-612016:27 HgA1C , Office (56180) HgA1C , Office 6.7 % (Normal) Range: 4.6 - 7.1 :17 METABOLIC PANEL, COMPREHENSIVE Comments: PATIENT WAS FASTINGPERFORMED BY: [facility] Dfpvrg1754 [facility] [id number] (73789) ALT (SGPT) 16 [iU]/L (Normal) Range: 0-32 [...] mg/dL (Abnormal) Range: 65-99 :17 LIPID PANEL (90293) Comments: PATIENT WAS FASTINGPERFORMED BY: [facility]6370 [facility] [id number] LDL/HDL Ratio 2.0 {ratio_units} (Normal) Range: 0.0-3.2 [...] DIFF Comments: PATIENT WAS FASTINGPERFORMED BY: CORTEZ LabCoVirtua BerlinIbvwlz0803 [facility] [id number] Information: [id number] (20113) Immature Grans (Abs) 0.0 {x10E3/uL} (Normal) Range: [...] B-12 (CYANOCOBALAMIN) Comments: PATIENT WAS FASTINGPERFORMED BY: Counsyl Wmntod7297 [facility] [place] [id number] (81723) Vitamin B12 696 pg/mL (Normal) Range: 211-946 :17 Vitamin D Hydroxy (30825) Comments: PATIENT WAS FASTINGPERFORMED BY: LabEayun Zzpkmr7377 [address] [facility] [place] [id number] Vitamin D, 25-Hydroxy 29.3 ng/mL (Abnormal) Range: 30.0-100.0 Comments: Vitamin D deficiency has been defined by the Clymer ofOhio [facility] Surgical Hospitalcine and an Endocrine Society practice guideline as alevel of serum 25-OH vitamin D less than 20 ng/mL (1,2).The Endocrine Society went on to further define vitamin Dinsufficiency as a level between 21 and 29 ng/mL (2).1. IOM (Clymer of Medicine). 2010. Dietary reference intakes for calcium and D. [place]: The National Academies Press.2. Rachel MF, Yael NC, Dunia HERRERA, et al. Evaluation, treatment, and prevention of vitamin D deficiency: an Endocrine Society clinical practice guideline. JCEM. 2010; 96(7):1911-30. :29 HgA1C , Office (40921) HgA1C , Office 7.0 % (Normal) Range: 4.6 - 7.1 :14 B12 794 pg/mL (Normal) Range: 211-911 Comments: Effective 2012:14 VITD 37.5 ng/mL (Normal) Comments: Vitamin D 25(OH) Status RangeDeficiency <20 ng/mL (50nmol/L)Insufficiency 20 - 30 ng/mL (50 - 75 nmol/L)Sufficiency 30 - 100 ng/mL (75 - 250 nm ol/L)Toxicity >100 ng/mL (250 nmol/L)Effective 201201-Dec-20127-Aql-821552:13 CHEST PA AND LATERAL Radiology Report See [...] Tate D.O.December 01, 2012 at 12:40:54 PM [id number] Signed DS/DS If you are the referring physician and would like to consult with theradiologist who provided this i nterpretation, please contact Eulalio Tate D.O. at [phone]. If this radiologist is unavailable, you will bedirected to another radiologist to assist. If you are a patient with a question regarding t his report, pleasecontactyour referring physician directly. Professional Interpretation Provided By: [employer], Phone , These documents contain legally protected [...] 12/01/12 1244 Sign by: Mack Peterson DO 51-Rsy-939681:20 Upper Respiratory Culture Comments: PATIENT NOT FASTINGPERFORMED BY: LabCoVirtua BerlinFmrqza2871 [facility] [id number] Information: SRC: THROAT Result 1 RRF (Normal) Comments: Routine respiratory alton Upper Respiratory Culture Final report (Normal) 16-Rgy-368558:06 Rapid Strep Test, Office (14095) Rapid Strep Test, Office Negative (Normal) 70-Bwx-434615:32 BILAT SCRN DIGITAL & CAD Radiology Report [...] Wayne M.D.November 18, 2012 at 12:51:57 PM [id number] Signed GP/GP If you are the referring physician and would like to consult with theradiologist who provid ed this interpretation, please contact Lee Claudio at [phone]. If this radiologist is unavailable, youwill be directed to another radiologist to assist. If you are a patient with a ques tion regarding this report, pleasecontactyour referring physician directly. Professional Interpretation Provided By: [employer], Phone , These documents contain legally pr [...] 11/18/12 1254 Sign by: Teo Wayne MD 6-Tom-300918:24 URINE RANI CULTURE-IDENTIFICATN Comments: PATIENT NOT FASTINGPERFORMED BY: appssavvy6370 [facility] [id number] Information: [id number] (29026) Result 1 MUG (Normal) Comments: Mixed urogenital flora10,000-25,000 colony forming units per mL Urine Final report (Normal) Culture,Comprehensive 38-Wtk-637380:50 METABOLIC PANEL, Comments: PATIENT NOT FASTINGPERFORMED BY: [facility] Ityfok2062 [facility] [id number] Information: ADD [id number] AND DRAW FEE 99 9027 COMPREHENSIVE (95176) ALT (SGPT) 14 [iU]/L (Normal) Range: 0-32 [...] Glucose, Serum 109 mg/dL (Abnormal) Range: 65-99 1-Uyf-777092:42 HgA1C , Office (06925) HgA1C , Office 6.3 % (Normal) Range: 4.6 - 7.1 :04 Microscopic Examination Comments: PATIENT NOT FASTINGPERFORMED BY: [facility] [id number] Bacteria Few (Normal) Mucus Threads Present (Normal) Cast Type Hyaline casts (Normal) Casts Present {/lpf} (Abnormal) Epithelial Cells (non renal) 0-10 {/hpf} (Normal) Range: 0 - 10 RBC 0-3 {/hpf} (Normal) Range: 0 - 3 WBC 6-10 {/hpf} (Abnormal) Range: 0 - 5 :04 VITAMIN B-12 (CYANOCOBALAMIN) Comments: PATIENT NOT FASTINGPERFORMED BY: [employer] [facility] [id number] (41698) Vitamin B12 1228 pg/mL (Abnormal) Range: 211-946 :04 Vitamin D Hydroxy (23370) Comments: PATIENT NOT FASTINGPERFORMED BY: [facility]xC[facility] [place] [place] [id number] Vitamin D, 25-Hydroxy 21.9 ng/mL (Abnormal) Range: 30.0-100.0 Comments: Vitamin D deficiency has been defined by the Clymer ofMedicine and an Endocrine Society practice guideline as alevel of serum 25-OH vitamin D less than 20 ng/mL (1,2).The Endocrine Society went on to further define vitamin Dinsufficiency as a level between 21 and 29 ng/mL (2).1. IOM (Clymer of Medicine). 2010. Dietary reference intakes for calcium and D. [place]: The National Academies Press.2. Rachel MF, Yael NC, Dunia HERRERA, et al. Evaluation, treatment, and prevention of vitamin D deficiency: an Endocrine Society clinical practice guideline. JCEM. 2010; 96(7):1911-30. :04 URINALYSIS, W/ MICRO (23532) Comments: PATIENT NOT FASTINGPERFORMED BY: appssavvy6370 [address] [facility] [id number] Microscopic Examination See below: (Normal) Nitrite, Urine Negative (Normal) Bilirubin Negative (Normal) Urobilinogen,Semi-Qn 0.2 mg/dL (Normal) Range: 0.0-1.9 Occult Blood Negative (Normal) Ketones Negative (Normal) Glucose Negative (Normal) Protein Negative (Normal) WBC Esterase 1+ (Abnormal) Appearance Clear (Normal) Urine-Color Yellow (Normal) pH 5.5 (Normal) Range: 5.0-7.5 Specific [place] 1.024 (Normal) Range: 1.005-1.030 :04 CBC WITH MANUAL DIFF Comments: PATIENT NOT FASTINGPERFORMED BY: [employer] Giyndz4301 [facility] [id number] Information: [id number] (21004) Immature Grans (Abs) 0.0 {x10E3/uL} (Normal) Range: [...] 3.77-5.28 WBC 7.2 {x10E3/uL} (Normal) Range: 4.0-10.5 81-Khr-39327:04 METABOLIC PANEL, COMPREHENSIVE Comments: PATIENT NOT FASTINGPERFORMED BY: LabCoVirtua BerlinEcninb3386 [facility] [id number] (62482) ALT (SGPT) 13 [iU]/L (Normal) Range: 0-32 [...] mg/dL (Abnormal) Range: 65-99 :04 LIPID PANEL (26196) Comments: PATIENT NOT FASTINGPERFORMED BY: [facility] LabsCoMIND [employer] [address] [id number] LDL Cholesterol Calc 103 mg/dL (Abnormal) Range: [...] Range: 211-946 Comments: Performed at: - [facility] [address] [id number] Director: Arnold Jefferson PhD, Phone: [phone] :[phone] CMP GAP 9 (Normal) Range: 5-15 [...] 250 nmol/L) Toxicity >100 ng/mL (250 nmol/L)Effective 201215-Aug-201222-Hzd-452668:20 Metabolic Panel, Basic Comments: PATIENT NOT FASTINGPERFORMED BY: [facility] LabsM[facility]6370 [facility] [id number] Information: [id number] (76460) Calcium, Serum 10.2 mg/dL (Normal) Range: 8.6-10.2 [...] Glucose, Serum 99 mg/dL (Normal) Range: 65-99 7-Pql-229560:24 Microscopic Examination Comments: PATIENT NOT FASTINGPERFORMED BY: [facility]6370 [facility] [id number] Bacteria Few (Normal) Mucus Threads Present (Normal) Epithelial Cells (non renal) 0-10 {/hpf} (Normal) Range: 0 - 10 RBC 0-3 {/hpf} (Normal) Range: 0 - 3 WBC 6-10 {/hpf} (Abnormal) Range: 0 - 5 6-Evo-800660:24 Vitamin D Hydroxy (10045) Comments: PATIENT NOT FASTINGPERFORMED BY: [facility]6370 [facility] [id number] Vitamin D, 25-Hydroxy 21.7 ng/mL (Abnormal) Range: 30.0-100.0 Comments: Vitamin D deficiency has been defined by the Clymer ofMedicine and an Endocrine Society practice guideline as alevel of serum 25-OH vitamin D less than 20 ng/mL (1,2).The Endocrine Society went on to further define vitamin Dinsufficiency as a level between 21 and 29 ng/mL (2).1. IOM (Clymer of Medicine). 2010. Dietary reference intakes for calcium and D. [place]: The National Academies Press.2. Rachel MF, Yael MARLEY, uDnia HERRERA, et al. Evaluation, treatment, and prevention of vitamin D deficiency: an Endocrine Society clinical practice guideline. JCEM. 2010; 96(7):1911-30. 9-Fry-368152:24 VITAMIN B-12 (CYANOCOBALAMIN) Comments: PATIENT NOT FASTINGPERFORMED BY: [address] [facility] [place] [id number] (66545) Vitamin B12 431 pg/mL (Normal) Range: 211-946 :24 URINALYSIS, W/ MICRO (44766) Comments: PATIENT NOT FASTINGPERFORMED BY: [address] [facility] [id number] Microscopic Examination MICRON (Normal) Comments: Microscopic follows if indicated. Microscopic Examination See below: (Normal) Nitrite, Urine Negative (Normal) Urobilinogen,Semi-Qn 0.2 mg/dL (Normal) Range: 0.0-1.9 Bilirubin Negative (Normal) Ketones Negative (Normal) Occult Blood Negative (Normal) Glucose Negative (Normal) Protein Negative (Normal) WBC Esterase Negative (Normal) Appearance Clear (Normal) pH 6.5 (Normal) Range: 5.0-7.5 Urine-Color Yellow (Normal) Specific [place] 1.022 (Normal) Range: 1.005-1.030 :24 CBC WITH MANUAL DIFF Comments: PATIENT NOT FASTINGPERFORMED BY: appssavvy6370 [facility]Critical access hospital [id number] Information: [id number] (56553) Immature Grans (Abs) 0.0 {x10E3/uL} (Normal) Range: [...] 3.77-5.28 WBC 7.9 {x10E3/uL} (Normal) Range: 4.0-10.5 9-Agz-220094:24 METABOLIC PANEL, COMPREHENSIVE Comments: PATIENT NOT FASTINGPERFORMED BY: LabCoVirtua BerlinRcnovw0312 [facility] [id number] (16688) ALT (SGPT) 16 [iU]/L (Normal) Range: 0-32 [...] Glucose, Serum 107 mg/dL (Abnormal) Range: 65-99 5-Kyx-145078:24 TSH (25628) Comments: PATIENT NOT FASTINGPERFORMED BY: CounsylHoly Cross HospitalAebjrv2065 [facility] [id number] TSH 2.000 {uIU/mL} Range: 0.450-4.500 (Normal) CCP Antibodies IgG/IgA 1 {units} (Normal) Comments: PATIENT NOT FASTINGPERFORMED BY: Autogen[facility] MarketingHoly Cross HospitalJleace5188 [facility] [id number] BY: Counsyl[address] [id number] :[id number] Range: 0-19 Comments: Negative <20 Weak positive 20 - 39 Moderate positive 40 - 59 Strong positive >59 6-Cij-964632:39 Systemic Lupus Profile Comments: PATIENT NOT FASTINGPERFORMED BY: CounsylVirtua BerlinXqyfgh8234 [facility] [id number] BY: [facility] [id number] Information: [id number] (58154) Anti-DNA (DS) Ab Qn <1 {IU/mL} (Normal) Range: 0-9 Comments: Negative <5 Equivocal 5 - 9 Positive >9 Sjogren's Anti-SS-B 0.5 {AI} (Normal) Range: 0.0-0.9 Sjogren's Anti-SS-A 0.3 {AI} (Normal) Range: 0.0-0.9 Antichromatin Antibodies <0.2 {AI} (Normal) Range: 0.0-0.9 RA Latex Turbid. 8.5 {IU/mL} (Normal) Range: 0.0-13.9 [place] Antibodies <0.2 {AI} (Normal) Range: 0.0-0.9 TRANSPORTATION DIRECTOR Antibodies <0.2 {AI} (Normal) Range: 0.0-0.9 :27 HgA1C , Office (20513) HgA1C , Office 6.2 % (Normal) Range: 4.6 - 7.1 :27 Blood Glucose , Office (33410) Blood Glucose , Office 108 (Normal) :45 [...] D deficiency has been defined by the Clymer ofMedicine and an Endocrine Society practice guideline as alevel of serum 25-OH vitamin D less than 20 ng/mL (1,2).The Endocrine Society went on to further define vitamin Dinsufficiency as a level between 21 and 29 ng/mL (2).1. IOM (Clymer of Medicine). 2010. Dietary reference intakes for calcium and D. [place]: The National Academies Press.2. Rachel MF, Yael NC, Markus-Kenny HERRERA, et al. Evaluation, treatment, and prevention of vitamin D deficiency: an Endocrine Society clinical practice guideline. JCEM. 2010; 96(7): 1911-30.Performed at: [facility] [address] [id number] Director: Arnold Jefferson PhD, Phone: [phone] 43-Eic-491519:59 Blood Glucose , Office (26900) Blood Glucose , Office 131 (Normal) 01-Exq-450145:58 HgA1C , Office (01204) HgA1C , Office 6.8 % (Normal) Range: [...] 4.2-5.4 WBC 7.0 K/mm3 (Normal) Range: 4.4-11.0 86-Hmr-459803:12 CMP GAP 10 (Normal) Range: 5-15 CO2 [...] D deficiency has been defined by the Clymer ofMedicine and an Endocrine Society practice guideline as alevel of serum 25-OH vitamin D less than 20 ng/mL (1,2).The Endocrine Society went on to further define vitamin Dinsufficiency as a level between 21 and 29 ng/mL (2).1. IOM ([place] of Medicine). 2010. Dietary reference intakes for calcium and D. [place]: The National Academies Press.2. Rachel MF, Yael MARLEY, Dunia HERRERA, et al. Evaluation, treatment, and prevention of vitamin D deficiency: an Endocrine Society clinical practice guideline. JCEM. 2010; 96(7): 1911-30.Performed at: [place] [id number] [place], [place] [id number] Director: Tona Emmanuel MD, Phone: [phone] 08-Qgc-891494:15 HgA1C , Office (41584) HgA1C , Office 5.8 % (Normal) Range: 4.6 - 7.1 03-Wkc-100106:15 Blood Glucose , Office (55667) Blood Glucose , Office 113 (Normal) :30 [...] D deficiency has been defined by the [place] ofMedicine and an Endocrine Society practice guideline as alevel of serum 25-OH vitamin D less than 20 ng/mL (1,2).The Endocrine Society went on to further define vitamin Dinsufficiency as a level between 21 and 29 ng/mL (2).1. IOM ([place] of Medicine). 2010. Dietary reference intakes for calcium and D. [place]: The National Academies Press.2. Rachel MF, Yael MARLEY, Dunia HERRERA, et al. Evaluation, treatment, and prevention of vitamin D deficiency: an Endocrine Society clinical practice guideline. JCEM. 2010; 96(7): 1911-30.Performed at: [address] [id number] Director: Tona Emmanuel MD, Phone: [phone] 63-Waw-405905:02 CTA NECK W/WO CONTRAST Radiology Report See [...] ologist regarding this report, please call our 39J3bmxhgfp line @ Dictated on 10/08/11 [address]ER,Loraribed on 10/09/11 0856 by ITS IMPORTSign by Juana Wayne MD on 10/09/11 0857 Sign by: Teo Wayne MD 86-Ioj-310102:00 BILAT SCRN DIGITAL & CAD Radiology Report [...] radiologist regarding this report, please call our 32L4ykxcnft line @ Dictated on 09/18/11 1040 by Ori clifton MD,Loraribed on 09/20/11 0901 by ITS IMPORTSign by Teo Wayne MD on 09/20/11 0902 Sign by: Hema STREETERTeo 75-Ttp-84707:59 DEXA BONE DENSITY STUDY () Radiology Report [...] regarding this re port, please call our 84Q3qunewod line @ Dictated on 09/18/11 [address]ER,GeeriNoahranscribed on 09/19/11 1416 by ITS IMPORTSign by Hema STREETER,Teo on 09/19/11 1417 Sign by: Teo Wayne MD 14-Fuq-710450:17 HgA1C , Office (40920) HgA1C , Office 5.9 % (Normal) Range: 4.6 - 7.1 68-Dhs-200277:17 Blood Glucose , Office (46738) Blood Glucose , Office 77 (Normal) :44 [...] >240 mg/dL High Risk :44 VIT D,25 66371 22.3 ng/mL (Abnormal) Range: 30.0-100.0 Comments: Vitamin D deficiency has been defined by the [place] ofMedicine and an Endocrine Society practice guideline as alevel of serum 25-OH vitamin D less than 20 ng/mL (1,2).The Endocrine Society went on to further define vitamin Dinsufficiency as a level between 21 and 29 ng/mL (2).1. IOM ([place] of Medicine). 2011. Dietary reference intakes for calcium and D. [place]: The National Academies Press.2. Rachel MF, Yael [place], Dunia HERRERA, et al. Evaluation, treatment, and prevention of vitamin D deficiency: an Endocrine Society clinical practice guideline. JCEM. 2010; 96(): 1911-30.Performed at: - [facility] [id number] Director: Tona Emmanuel MD, Phone: [phone] :[phone] HgA1C , Office (75269) HgA1C , Office 6.6 % (Normal) Range: 4.6 - 7.1 :34 Blood Glucose , Office (95389) Blood Glucose , Office 116 (Normal) :50 [...] Range: 4.4-11.0 :50 COMP METABOLIC Comments: appt 50337 GAP 10 (Normal) Range: 5-15 CO2 26.0 [...] {uIU/mL} (Normal) Range: 0.358-3.74 :50 VIT D,25 62894 41.3 ng/mL (Normal) Range: 32.0-100.0 Comments: Effective June 18, 2011 Vitamin D, 25-Hydroxy reference intervals will be changing to 30-100. .Recent studies consider the lower li lalo of 32.0 ng/mL to be athreshold for optimal health.Pepito ANNE. J Nutr. 2004;135(2):317-22.Performed at: [facility] [id number] Director: Tona Emmanuel MD, Phone: [phone] :[phone] VITAMIN B12 806 pg/mL (Normal) Range: [...] Panel (14) Comments: PATIENT WAS FASTINGPERFORMED BY: [facility] [id number] ALT (SGPT) 40 [iU]/L (Normal) Range: 0-40 [...] With LDL/HDL Comments: PATIENT WAS FASTINGPERFORMED BY: [facility] [id number] Ratio LDL Cholesterol Calc 74 mg/dL (Normal) [...] 0.192 {uIU/mL} Comments: PATIENT WAS FASTINGPERFORMED BY: [facility] [id number] 09 (Abnormal) Range: 0.450-4.500 : Vitamin B12 417 pg/mL (Normal) Comments: PATIENT WAS FASTINGPERFORMED BY: [facility] [id number] Range: 211-946 66-Ehc-654067:22 UNILAT LT DIAG DIGITAL & CAD Radiology [...] 02/23/11 1511 Sign by: Teo Wayne MD 80-Ple-30828:58 CBCD,SMEAR DIFF Comments: appt 10/24/10 RED CELL [...] {uIU/mL} (Abnormal) Range: 0.358-3.74 :58 VIT D,25 44906 22.0 ng/mL (Abnormal) Comments: appt 10/24/10 Range: 32.0-100.0 Comments: Recent studies consider the lower limit of 32.0 ng/mL to tammy threshold for optimal health.Pepito ANNE. J Nutr. 2004;135(2):317-22.Performed at: - [facility] [place] [address] Director: Tona Emmanuel MD, Phone: [phone] :58 VITAMIN B12 285 pg/mL (Normal) Range: [...] CYTYC Thin Prep VialPATIENT NOT FASTINGPERFORMED BY: [facility] [id number] Information: [id number] ([id number]) Note: PAPSMR (Normal) Comments: The Pap smear [...] for malignant neoplasm of the cervixMattsteve Montes Sucker Machine Operator (ASCP) 24-Enn-993031:26 BREAST UNILATERAL Radiology Report See Note (Normal) [...] on 08/28/10 1453 Sign by: ANTHONY PALOMARES 94-Hov-797808:58 UNILAT LT DIAG DIGITAL & CAD Radiology [...] Category 3: Probably Benign Finding - Initial Unpvs-WlfixomxPrufsr-cr Suggested. A letter regarding these results will be sent tothepatient by the facility within 30 days. Approximately 10% of breast cancers are not detected by mammography. Anormal mammogram should not delay biopsy of a clinically suspiciousabnormality. Dictated on 08/24/10 1206 by NATHONY PALOMARESTranscribed on 08/24/10 135 by ITS IMPORTSign by ANTHONY PALOMARES on 08/24/101351 Sign by: ANTHONY PALOMARES 90-Ajp-98816:43 BILAT SCRN DIGITAL & CAD Radiology Report [...] on 08/18/101451 Sign by: ANTHONY PALOMARES MD 8-Eun-223912:14 HgA1C , Office (99152) HgA1C , Office 6.5 % (Normal) Range: 4.6 - 7.1 :14 Blood Glucose , Office (29586) Blood Glucose , Office 176 (Normal) :30 [...] CREAT 161.2 mg/dL (Normal) : VIT D,25 97123 27.7 ng/mL Range: 32.0-100.0 30 (Abnormal) Comments: Recent studies consider the lower limit of 32.0 ng/mL to tammy threshold for optimal health.Pepito ANNE. J Nutr. 2004;135(2):317- 22.Performed at: [facility] [address] Director: Tona Emmanuel MD, Phone: [phone] : VITAMIN B12 449 pg/mL (Normal) Range: [...] {units} (Normal) Comments: PATIENT NOT FASTINGPERFORMED BY: [facility] [id number] BY: [address] [id number] 0:44 Range: 0-19 Comments: Negative <20 Weak positive 20 - 39 Moderate positive 40 - 59 Strong positive >59 Comment: SPRCS (Normal) Comments: PATIENT NOT FASTINGPERFORMED BY: [facility] [place] [address] [id number] BY: [address] [id number] 0:44 Comments: Effective April 25, 2009 order code 099035 CCP IgGAntibodies has been replaced due to an updated reagentversion 3.1. For this reason [facility] has provided youwith a new order code 848940 CCP Antibodies IgG/IgA. 85-Umi-085980:44 Vitamin D Hydroxy Comments: PATIENT NOT FASTINGPERFORMED BY: [facility]6[address] [facility] [id number] BY: [address] [id number] (83489) Vitamin D, 25-Hydroxy 30.9 ng/mL (Abnormal) Range: 32.0-100.0 Comments: Recent studies consider the lower limit of 32.0 ng/mL to be athreshold for optimal health.Pepito ANNE. J Nutr. 2004;135(2):317-22. 47-Ojx-219526:44 SED RATE ERYTHROCYTE Comments: PATIENT NOT FASTINGPERFORMED BY: [address] [id number] BY: [address] [id number] (10080) Sedimentation Rate-Westergren 4 mm/h (Normal) Range: 0-30 11-Rat-911782:44 C-REACTIVE PROTEIN Comments: PATIENT NOT FASTINGPERFORMED BY: [address] [id number] BY: [address] [id number] (10990) C-Reactive Protein, Quant 2.5 mg/L (Normal) Range: 0.0-4.9 75-Hfl-883361:44 TSH (50486) Comments: PATIENT NOT FASTINGPERFORMED BY: [facility] [id number] BY: [address] [id number] TSH 2.050 {uIU/mL} (Normal) Range: 0.450-4.500 28-Wgh-305672:44 RHEUMATOID FACTOR-QUANT Comments: PATIENT NOT FASTINGPERFORMED BY: [place] [address] [facility] [id number] BY: [address] [id number] (32206) RA Latex Turbid. 8.4 {IU/mL} (Normal) Range: 0.0-13.9 88-Dkv-285586:44 MELI (ANTINUCLEAR ANTIBODY) Comments: PATIENT NOT FASTINGPERFORMED BY: [facility] [address] [facility] [id number] BY: [address] [id number] (52231) MELI Direct Negative (Normal) 83-Xyt-119247:44 CBC WITH MANUAL DIFF Comments: PATIENT NOT FASTINGPERFORMED BY: [place] [address] [facility] [id number] BY: [address] [id number] Inf ormation: ADD [id number] AND DRAW FEE 99 2826 (10502) Immature Grans (Abs) 0.0 {x10E3/uL} (Normal) Range: [...] 3.80-5.10 WBC 6.8 {x10E3/uL} (Normal) Range: 4.0-10.5 38-Rqc-214634:44 METABOLIC PANEL, Comments: PATIENT NOT FASTINGPERFORMED BY: CB [facility] Sqkrlj3076 [facility] [id number] BY: BN [facility] [address] [id number] COMPREHENSIVE (13102) ALT (SGPT) 21 [iU]/L (Normal) Range: 0-40 [...] (Abnormal) Range: 65-99 :33 HgA1C , Office (02964) HgA1C , Office 6.8 % (Normal) Range: 4.6 - 7.1 :33 Blood Glucose , Office (38996) Blood Glucose , Office 135 (Normal) :22 [...] CHOL 157 mg/dL (Normal) Comments: <200 mg/dL Tfmkgyftf310-416 mg/dL Borderline>240 mg/dL High Risk :22 LIVER ALB 3.5 g/dL (Normal) Range: 3.4-5.0 ALK P 97 U/L (Normal) Range: 50-136 ALT 21 U/L (Normal) Range: 12-78 AST 16 U/L (Normal) Range: 15-37 D BILI 0.12 mg/dL (Normal) Range: 0.00-0.30 T BILI 0.40 mg/dL (Normal) Range: 0.00-1.00 T PROT 6.5 g/dL (Normal) Range: 6.4-8.2 :22 TSH 1.54 {uIU/mL} Range: 0.358-3.74 (Normal) :22 VIT D,25 27193 36.8 ng/mL (Normal) Range: 32.0-100.0 Comments: Recent studies consider the lower limit of 32.0 ng/mL to tammy threshold for optimal health.Pepito ANNE. J Nutr. 2004;135(2):317-22.Performed at: [facility] [place] [id number] [address]Lab Director: Tona Emmanuel MD, Phone: [phone] :[phone] VITAMIN B12 264 pg/mL (Normal) Range: 254-1320 Comments: There is a low frequency possibility that high titers ofintrinsic blocking antibodies may not be completelyinactivated during the reaction pretreatment stepof this testing method. If test results are in conflictwith the clinical diagnosis, patient should be testedfor the presence of intrinsic factor blocking antibodies. : Amylase, Serum 92 U/L (Normal) Comments: PERFORMED BY: [facility] [address] [id number] Range: 31-124 49-Xmw-997941:34 CBC With Differential/Platelet Comments: PERFORMED BY: LabCoVirtua BerlinWsodvs1028 [facility] [id number] Baso (Absolute) 0.0 {x10E3/uL} (Normal) Range: 0.0-0.2 [...] Comp. Metabolic Panel (14) Comments: PERFORMED BY: [facility]CoVirtua BerlinKpoxue8347 [facility] [id number] ALT (SGPT) 18 [iU]/L (Normal) Range: 0-40 [...] Serum 57 U/L (Normal) Comments: PERFORMED BY: [facility]6370 [facility] [id number] 13:34 Range: 0-59 03-Feb-20109:00 GALLBLADDER Radiology Report See Note (Normal) Comments: Exam Number: [id number] CLINICAL:Epigastric pain and bloating. ABDOMINAL ULTRASOUND TECHNIQUE:Transabdominal [...] hydronephrosis,etiology indeterminate. Reported By: KATHRYN MUNOZ M.D. 7-Fsy-730706:19 CBC WITH MANUAL DIFF Comments: PATIENT NOT FASTINGPERFORMED BY: LabCoVirtua BerlinPtdisj2787 [facility] [id number] Information: [id number] (65884) Baso (Absolute) 0.1 {x10E3/uL} (Normal) Range: 0.0-0.2 [...] 3.80-5.10 WBC 9.9 {x10E3/uL} (Normal) Range: 4.0-10.5 5-Zyh-636854:19 METABOLIC PANEL, COMPREHENSIVE Comments: PATIENT NOT FASTINGPERFORMED BY: [facility]CoVirtua BerlinIxfhxk2281 [facility] [id number] (30783) ALT (SGPT) 19 [iU]/L (Normal) Range: 0-40 [...] Report See Note (Normal) Comments: Exam Number: [id number] CLINICAL:This is a 69-year-old female patient with [...] as discussed above. Reported By: TEO WAYNE 5-Bbs-455044:12 HgA1C , Office (98777) HgA1C , Office 7.1 % (Normal) Range: 4.6 - 7.1 6-Cjx-717756:12 Blood Glucose , Office (69675) Blood Glucose , Office 129 (Normal) :45 [...] CHOL 155 mg/dL (Normal) Comments: <200 mg/dL Owjndnaob396-726 mg/dL Borderline>240 mg/dL High Risk :45 VIT D,25 48936 42.5 ng/mL (Normal) Range: 32.0-100.0 Comments: Recent studies consider the lower limit of 32.0 ng/mL to tammy threshold for optimal health.Pepito ANNE. J Nutr. 2004;135(2):317-22.Performed at: - [facility] [id number] Director: Tona Emmanuel MD :53 LIPID HDL [...] CHOL 128 mg/dL (Normal) Comments: <200 mg/dL Jaqnrrynp137-841 mg/dL Borderline>240 mg/dL High Risk :53 MICROALB:CRE UR MALB:CREAT 19.1 {mg/g_CRE} (Normal) MICROALBUMIN,UR 29.1 mg/L (Normal) UR CREAT 152.0 mg/dL (Normal) :53 TSH 0.93 {uIU/mL} (Normal) Range: 0.358-3.74 :53 VIT D,25 50939 22.7 ng/mL (Abnormal) Range: 32.0-100.0 Comments: Recent studies consider the lower limit of 32.0 ng/mL to tammy threshold for optimal health.Pepito ANNE. J Nutr. 2004;135(2):317-22.Performed At: [address] [id number] :53 VITAMIN B12 337 pg/mL (Normal) Range: 254-1320 :09 HgA1C , Office (91188) HgA1C , Office 7.1 % (Normal) Range: 4.6 - 7.1 :09 Blood Glucose , Office (15953) Blood Glucose , Office 108 (Normal) 1-Xvl-361989:33 KNEE,4 OR MORE VIEWS (MT) Radiology Report See Note (Normal) Comments: Exam Number: [id number] CLINICAL:Pain X-RAY EXAMINATION RIGHT KNEE TECHNIQUE:Three view(s) [...] Report See Note (Normal) Comments: Exam Number: [id number] CLINICAL:Pain X-RAY EXAMINATION: RIGHT TIBIA AND FIBULA [...] (MT) Radiology See Note Comments: Exam Number: [id number] CLINICAL:Pain X-RAY EXAMINATION: RIGHT FEMUR TECHNIQUE:Two views [...] Report See Note (Normal) Comments: Exam Number: [id number] MAMMOGRAM, UNILATERAL LEFT DIAGNOSTIC DIGITAL AND CAD HISTORYAbnormal mammogram, left breast. TECHNIQUEFull field digital images were obtained in left true lateral, rolledcranio caudal, and spot mediolateral oblique and craniocaudalprojections. CAD images were reviewed. The current study is compared to the examinations of March 12, 2006,and June 21, 2009. FINDINGSThere is a cjmnjasg-bz-cxzfiy extent of fibroglandular parenchymapresent. There is no [...] wereal so examined with computer-aided detection software (NPR, [employer], [employer].). Reported By: ANTHONY PALOMARES M.D. 16-Pgr-465437:04 [facility] DIGITAL & CAD Radiology Report See Note (Normal) Comments: Exam Number: [id number] MAMMOGRAM, BILATERAL SCREENING DIGITAL AND CAD HISTORYRoutine [...] werealso examined with computer- aided detection software (NPR, [employer].). Reported By: ANTHONY PALOMARES M.D. 90-Mvg-780641:03 DEXA BONE DENSITY STUDY () Radiology Report See Note (Normal) Comments: Exam Number: [id number] BONE DENSITOMETRY HISTORYOsteopenia. TECHNIQUE Bone densitometry of the lumbar spine and both hips is now beingperformed. The best criteria for evaluation of osteoporosis is theT-value, which represents the comparison of the patient's bone mass flako expected peak bone mass. For most patients, the mean T-value of J2qdfjdvi L4 is used to evaluate the lumbar spine. To evalua te the hip,the lower T-value of the femoral neck or total hip is used. FINDINGSIn this patient, the mean T-value of L1 through L4 is 0.3 which isnormal. Bone mineral density is measured at 18.3% greate r than vy7685.Digital lateral view for evaluation of vertebral deformity [...] within normallimits. Reported By: ANTHONY PALOMARES M.D. 93-Oof-311428:09 BRAIN/HEAD W/WO CONTRAST Radiology Report See Note (Normal) Comments: Exam Number: [id number] CLINICAL:69 year old female with altered mental [...] CREAT 123.4 mg/dL (Normal) 07-Jun-2009 VIT D,25 09399 19.7 ng/mL Range: 32.0-100.0 9:02 (Abnormal) Comments: Recent studies consider the lower limit of 32.0 ng/mL to tammy threshold for optimal health.Pepito ANNE. J Nutr. 2004;135(2):317- 22.Performed At: [facility] [place], [place] [id number] 07-Jun-2009 VITAMIN B12 328 pg/mL (Normal) Range: 254-1320 9:02 11-Feb-2009 Homocyst(e)ine, Plasma 9.8 umol/L (Normal) Comments: PERFORMED BY: [facility] [id number] 14:28 Range: 0.0-15.0 11-Feb-2009 Methylmalonic Acid, 336 nmol/L (Normal) Comments: PERFORMED BY: [facility] [address] [id number] 14:28 Serum Range: 73-376 Comments: The reference range for methylmalonic acid has been set at +3sd abovethe mean for healthy blood bank donors. In the clinical assessment ofpatients with megaloblastic anemias a cutoff of +3sd provides gr eaterspecificity in the diagnosis of the vitamin deficiency states,despite the sacrifice of some sensitivity. 11-Feb-2009 TSH 2.700 {uIU/mL} Comments: PERFORMED BY: [facility] [id number] 14:28 (Normal) Range: 0.450-4.500 11-Feb-2009 Vitamin B12 231 pg/mL (Normal) Comments: PERFORMED BY: [facility] [id number] 14:28 Range: 211-911 7-Vqg-812367:09 HAND,MIN 3 VIEWS (MT) Radiology Report See Note (Normal) Comments: Exam Number: [id number] RIGHT WRIST CLINICAL DATAFell and injured the [...] osteoarthritis right hand. Reported By: FERNANDO TUCKER 0-Ppl-138065:09 WRIST,MIN 3 VIEWS (MT) Radiology Report See Note (Normal) Comments: Exam Number: [id number] RIGHT WRIST CLINICAL DATAFell and injured the [...] Comments: PATIENT WAS FASTINGPERFORMED BY: [facility]6[address] [facility] [id number] (91615) A/G Ratio 1.9 (Normal) Range: 1.1-2.5 Albumin, [...] 141 mmol/L (Normal) Range: 135-145 :42 TSH (55170) Comments: PATIENT WAS FASTINGPERFORMED BY: [facility]ylVirtua BerlinVstjht1708 [facility] [id number] TSH 4.980 {uIU/mL} (Abnormal) Range: 0.450-4.500 :42 MICROALBUMIN: CREATININE RATIO Comments: PATIENT WAS FASTINGPERFORMED BY: [facility]ylVirtua BerlinBwphlz6475 [facility] [id number] (21970) AND (60285) Creatinine, Urine 130.9 mg/dL (Normal) Range: 15.0-278.0 Microalb/Creat Ratio 66.4 {ug/mg_creat} (Abnormal) Range: 0.0-30.0 Microalbumin, Urine 86.9 ug/mL (Abnormal) Range: 0.0-17.0 :42 LIPID PANEL (77882) Comments: PATIENT WAS FASTINGPERFORMED BY: [facility] Ydrjxp4585 [facility] [id number] Cholesterol, Total 148 mg/dL (Normal) Range: 100-199 HDL Cholesterol 42 mg/dL (Normal) Comments: According to ATP-III Guidelines, HDL-C >59 mg/dL is considered anegative risk factor for CHD. LDL Cholesterol Calc 78 mg/dL (Normal) Range: 0-99 LDL/HDL Ratio 1.9 {ratio_units} (Normal) Range: 0.0-3.2 Triglycerides 141 mg/dL (Normal) Range: 0-149 VLDL Cholesterol Priscilla 28 mg/dL (Normal) Range: 5-40 :42 CBC WITH MANUAL DIFF (82422) Comments: PATIENT WAS FASTINGClinical Information: ADD DRAW FEE 293915 ADD J 01922 PERFORMED BY: [facility] Ajdwwl3303 [facility] [id number] Baso (Absolute) 0.1 {x10E3/uL} (Normal) Range: 0.0-0.2 [...] (CYANOCOBALAMIN) Comments: PATIENT WAS FASTINGPERFORMED BY: [facility]CoVirt[facility] BerlinNabnry1349 [facility] [id number] (26291) Vitamin B12 232 pg/mL (Normal) Range: 211-911 0-Cnd-673137:06 Blood Glucose , Office (46030) Blood Glucose , Office 155 (Normal) :27 [...] (Normal) Range: 0.34-4.82 :27 HgA1C , Office (51647) Comments: done>Wf. HgA1C , Office 6.2 % (Normal) Range: 4.6 - 7.1 :27 Blood Glucose , Office (69914) Comments: done>Wf. Blood Glucose , Office 152 [...] for patient's is the eGFRmultiplied by 1.212. [facility] Laboratory uses the abbreviated Modification of [...] Disease W/O Kidney Disease>/= 90 Stage One Jdjbhb06 - 89 Stage Two Suspect Decrease d [...] T PROT 7.3 g/dL (Normal) Range: 6.4-8.2 5-Tsf-458061:55 LIPID CHOL 287 mg/dL (Abnormal) Comments: <200 [...] :55 TSH 5.53 {uIU/mL} (Abnormal) Range: 0.34-4.82 97-Upf-141622:25 TSH 0.16 {uIU/mL} (Abnormal) Range: 0.34-4.82 :31 HgA1C , Office (81237) Comments: done HgA1C , Office 6.5 % (Normal) Range: 4.6 - 7.1 :31 Blood Glucose , Office (45206) Comments: done Blood Glucose , Office 128 (Normal) :01 TSH 5.15 {uIU/mL} (Abnormal) Range: 0.34-4.82 :12 HgA1C , Office (59175) Comments: done HgA1C , Office 6.2 % (Normal) Range: 4.6 - 7.1 :12 Blood Glucose , Office (01173) Comments: done Blood Glucose , Office 187 [...] Serum 117 ng/mL (Normal) Comments: PERFORMED BY: [facility] [id number] Range: 10-291 :33 Iron and TIBC Comments: PERFORMED BY: [facility] [id number] Iron Bind.Cap.(TIBC) 304 ug/dL (Normal) Range: 250-450 Iron Saturation 26 % (Normal) Range: 15-55 Iron, Serum 78 ug/dL (Normal) Range: 35-155 UIBC 226 ug/dL (Normal) Range: 150-375 : Vitamin B12 412 pg/mL (Normal) Comments: PERFORMED BY: [facility] [facility] [id number] 33 Range: 211-911 :56 LIPID CHOL 222 [...] (Normal) Range: 6.4-8.2 :07 HgA1C , Office (20253) Comments: done HgA1C , Office 5.9 % (Normal) Range: 4.6 - 7.1 :07 Blood Glucose , Office (45145) Comments: done Blood Glucose , Office 132 [...] mg/dL (Abnormal) Range: 34-200 Comments: Performed At: [address] [id number] :08 IRON+TIBC IRON SATURATION 17.9 % (Normal) [...] mg/dL (Normal) Range: 34-200 Comments: Performed At: [address] [id number] :56 IRON+TIBC IRON SATURATION 17.1 % (Normal) [...] 1.49 INDETERMINANT > OR = 1.50 SUGGEST PA :05 CPK TOTAL 149 U/L (Normal) Comments: Precautions*: NOT APPLICABLEINDICATE CK '1', '2', '3', OR 'R' FOR RANDOM: 2 Range: :05 CPKMB 1.1 ng/mL (Normal) Comments: Precautions*: NOT APPLICABLEINDICATE CK '1', '2', '3', OR 'R' FOR RANDOM: 2 Range: 0.0-5.0 Comments: CK-MB and RI Interpretation MB Relative Index Non-AMI <or= 5 NA Indeterminate > 5 <or= 4 AMI > 5 > 4 0-Fiy-753714:05 TROPONIN-I < 0.04 ng/mL (Normal) Comments: Precautions*: NOT APPLICABLEINDICATE CK '1', '2', '3', OR 'R' FOR RANDOM: 2 Comments: TROPONIN-I EXPECTED VALUES < 0.50 NEGATIVE 0.50 - 1.49 INDETERMINANT > OR = 1.50 SUGGEST PA :15 PRO TIME Comments: Precautions*: NOT APPLICABLE INR 1.0 (Normal) PROTIME 12.6 s (Normal) Range: 11.7-13.3 :15 TROPONIN-I < 0.04 ng/mL (Normal) Comments: Precautions*: NOT APPLICABLE Comments: TROPONIN-I EXPECTED VALUES < 0.50 NEGATIVE 0.50 - 1.49 INDETERMINANT > OR = 1.50 SUGGEST PA :00 BMP Comments: COMMENTS: FEARONPrecautions*: NOT APPLICABLEINDICATE [...] 1.49 INDETERMINANT > OR = 1.50 SUGGEST PA :48 HgA1C , Office (51435) HgA1C , Office 6.4 % (Normal) Range: 4.6 - 7.1 :48 Blood Glucose , Office (24581) Blood Glucose , Office 113 (Normal) Plan [...] Indication: Double vision Double vision : Reviewed Railroad Car Repair Supervisor Letter Indication: Double vision Fatty liver : [...] BMI 36.0-36.9,adult Right hip pain : Reviewed Railroad Car Rep[employer] Supervisor Letter Indication: Right hip pain Right hip [...] (monoclonal gammopathy of unknown significance) : Reviewed Railroad Car Repair Supervisor Letter- stable and discharged from onc Indication: [...] Fall down steps, initial encounter : Reviewed Railroad Car Repair Supervisor Letter Indication: Fall down steps, initial encounter [...] infarction, unspecified Cerebral infarction, unspecified : Reviewed Railroad Car Repair Supervisor Letter Indication: Cerebral infarction, unspecified Upper respiratory [...] Planned Observations CBC, PLATELETS & AUT DIFF (41683)Indication: Other vitamin B12 deficiency anemia On: :17 Request TSH (70241)Indication: Abnormal TSH On: :38 Request T4, FREE (THYROXINE) (43583)Indication: Abnormal TSH On: :38 Request T3, FREE (TRIDOTHYRONINE) ([id number])Indication: Abnormal TSH On: :38 Request ANTI-LIVER/KIDNEY MICROSOMAL ANTIBODY (06113)Indication: Elevated liver enzymes On: 16-Hxi-327974:34 Request TSH (00093)Indication: Abnormal TSH On: 81-Eja-484817:31 Request T4, FREE (THYROXINE) (31204)Indication: Abnormal TSH On: 14-Qzh-140064:31 Request T3, FREE (TRIDOTHYRONINE) (74438)Indication: Abnormal TSH On: 11-Lbn-662715:31 Request BETA-2 MICROGLOBULIN (00203)Indication: Abnormal blood chemistry On: 82-Qqg-722398:08 Request Urinalysis, Office (52337)Indication: Urinary frequency On: 54-Bnx-657362:38 Request CBC WITH MANUAL DIFF (10714)Indication: Therapeutic drug monitoring On: :57 Request Metabolic Panel, Basic (46776)Indication: Therapeutic drug monitoring On: :57 Request Methymalonic Acid, Serum (45048)Indication: Vitamin B 12 deficiency On: 76-Pmz-189899:51 Request CALCIFIDIOL (37814) VIT D 25Indication: Vitamin D deficiency, unspecified On: :45 Request LIPID PANEL (63285)Indication: Other and unspecified hyperlipidemia On: :45 Request CALCIFIDIOL (13458) VIT D 25Indication: Uncontrolled type II diabetes mellitus On: :46 Request TSH (34133)Indication: Uncontrolled type II diabetes mellitus On: :46 Request URINALYSIS, W/ MICRO (94627)Indication: Uncontrolled type II diabetes mellitus On: :46 Request MICROALBUMIN: CREATININE RATIO (58469) AND (10849)Indication: Uncontrolled type II diabetes mellitus On: :46 Request METABOLIC PANEL, COMPREHENSIVE (34059)Indication: Uncontrolled type II diabetes mellitus On: :46 Request LIPID PANEL (11604)Indication: Uncontrolled type II diabetes mellitus On: :45 Request CBC W/AUTO DIFF WBC (86664)Indication: Uncontrolled type II diabetes mellitus On: :45 Request Rapid Flu (54922 x 2)Indication: Flu-like symptoms On: 54-Ufk-722839:12 Request VITAMIN B-12 (CYANOCOBALAMIN) (30399)Indication: Vitamin B 12 deficiency On: 36-Ahn-135639:45 Request FECAL OCCULT- Tubes sent home (69692)Indication: Encounter for screening for malignant neoplasm of colon (Renamed from Special screening for malignant neoplasms, colon) On: 79-Juj-868659:35 Request THYROXINE FREE ([id number])Indication: Tachycardia On: 6-Olt-072551:04 Request FREE TRIDOTHYRONINE (T3) (88556)Indication: Tachycardia On: 1-Yas-732741:04 Request TSH (THYROID STIMULATING HORMONE) (68877)Indication: Tachycardia On: 3-Lcr-188635:04 Request serum immunofixation (59436)Indication: MGUS (monoclonal gammopathy of unknown significance) On: 55-Eje-744449:14 Request urine immunofixation (32227)Indication: MGUS (monoclonal gammopathy of unknown significance) On: 68-Uhy-600417:14 Request serum free light chains (94482)Indication: MGUS (monoclonal gammopathy of unknown significance) On: 70-Mqi-080254:14 Request CBC W/AUTO DIFF WBC (16253)Indication: Diabetes mellitus type 2, controlled On: 06-Gac-963639:13 Request MICROALBUMIN: CREATININE RATIO (79765) AND ([id number])Indication: Diabetes mellitus type 2, controlled On: 84-Omn-275354:13 Request METABOLIC PANEL, COMPREHENSIVE (40493)Indication: Diabetes mellitus type 2, controlled On: 69-Mwe-628288:13 Request LIPID PANEL (06908)Indication: Mixed hyperlipidemia On: 48-Ipe-080495:13 Request VITAMIN B-12 (CYANOCOBALAMIN) (13333)Indication: Other vitamin B12 deficiency anemia On: 60-Zxd-280066:12 Request CBC (AUTO) (08145)Indication: Other vitamin B12 deficiency anemia On: 01-Hzv-104825:12 Request Vitamin D Hydroxy (68685)Indication: Vitamin D deficiency, unspecified On: 97-Dmr-343802:12 Request LIPID PANEL (29223)Indication: Mixed hyperlipidemia On: 0-Vjc-702620:42 Request METABOLIC PANEL, COMPREHENSIVE (01008)Indication: Benign essential hypertension (Renamed from Benign essential HTN) On: 6-Zyx-806328:41 Request MICROALBUMIN: CREATININE RATIO (25596) AND (25620)Indication: Benign essential hypertension (Renamed from Benign essential HTN) On: :41 Request SPEP (14193)Indication: Anemia, unspecified On: 45-Dnq-658535:17 Request UPEP (15815)Indication: Anemia, unspecified On: 68-Wsv-659992:17 Request CBC W/AUTO DIFF WBC (20794)Indication: Iron (Fe) deficiency anemia On: 9-Lwr-493423:38 Request TSH (76606)Indication: Acquired hypothyroidism On: 4-Dsy-313339:38 Request TSH (40502)Indication: Acquired hypothyroidism On: 19-Qkw-401880:34 Request SPEP (54274)Indication: Iron (Fe) deficiency anemia On: 72-Gsf-865481:34 Request UPEP (42538)Indication: Iron (Fe) deficiency anemia On: 26-Aex-530135:34 Request IRON BINDING CAPACITY (TIBC) (34236)Indication: Iron (Fe) deficiency anemia On: 67-Lon-946267:34 Request FERRITIN (98451)Indication: Iron (Fe) deficiency anemia On: 40-Kgs-894295:34 Request IRON (04681)Indication: Iron (Fe) deficiency anemia On: 00-Hgm-204976:34 Request CBC, PLATELETS & AUT DIFF (47457)Indication: Other vitamin B12 deficiency anemia On: 82-Fdy-519388:34 Request VITAMIN B-12 (CYANOCOBALAMIN) (79068)Indication: Other vitamin B12 deficiency anemia On: :33 Request Hemoglobin Glyclated (HGB A1C) (30161)Indication: Diabetes mellitus type 2, controlled On: :33 Request CBC, PLATELETS & AUT DIFF (13071)Indication: Other vitamin B12 deficiency anemia On: :31 Request VITAMIN B-12 (CYANOCOBALAMIN) (94325)Indication: Other vitamin B12 deficiency anemia On: : Request METABOLIC PANEL, COMPREHENSIVE (90694)Indication: Benign essential hypertension (Renamed from Benign essential HTN) On: : Request LIPID PANEL (90069)Indication: Other and unspecified hyperlipidemia On: : Request Vitamin D Hydroxy (25375)Indication: Vitamin D deficiency, unspecified On: : Request AYSWY-JCILKISQHUM-EBUZB (47334)Indication: Fatty liver On: Request GJYAT-OMQSMTRXXLG-TLHLJ (52751)Indication: Fatty liver On: :24 Request LIPID PANEL (88151)Indication: Mixed hyperlipidemia On: :23 Request TSH (31280)Indication: Acquired hypothyroidism On: :23 Request MICROALBUMIN: CREATININE RATIO (23648) AND (31740)Indication: Diabetes mellitus type 2, controlled On: :23 Request METABOLIC PANEL, COMPREHENSIVE (30094)Indication: Diabetes mellitus type 2, controlled On: :23 Request Vitamin D Hydroxy (11964)Indication: Vitamin D deficiency, unspecified On: :23 Request CBC, PLATELETS & AUT DIFF (90308)Indication: Other vitamin B12 deficiency anemia On: 35-Juk-831364:20 Request VITAMIN B-12 (CYANOCOBALAMIN) (69044)Indication: Other vitamin B12 deficiency anemia On: 26-Zyn-593585:20 Request Vitamin D Hydroxy (73423)Indication: Vitamin D deficiency, unspecified On: 44-Xvq-207973:38 Request VITAMIN B-12 (CYANOCOBALAMIN) (11163)Indication: Other vitamin B12 deficiency anemia On: :38 Request CBC W/AUTO DIFF WBC (37414)Indication: Other vitamin B12 deficiency anemia On: : Request TSH (42893)Indication: Acquired hypothyroidism On: Request LIPID PANEL (47213)Indication: Mixed hyperlipidemia On: Request LUMML-UYSEYGJQYIL-HEIRB (76836)Indication: Fatty liver On: : Request PTT (Activated Partial Thromboplastin Time) (74932)Indication: Fatty liver On: : Request PT (Prothrobim Time) (67985)Indication: Fatty liver On: : Request Vitamin D Hydroxy (87870)Indication: Vitamin D deficiency, unspecified On: Request VITAMIN B-12 (CYANOCOBALAMIN) (83347)Indication: Other vitamin B12 deficiency anemia On: : Request CBC W/AUTO DIFF WBC (57403)Indication: Diabetes mellitus type 2, controlled On: Request METABOLIC PANEL, COMPREHENSIVE (82848)Indication: Diabetes mellitus type 2, controlled On: : Request LIPID PANEL (25020)Indication: Mixed hyperlipidemia On: Request LIPID PANEL (74453)Indication: HYPERTENSION, NOS On: :40 Request CBC WITH MANUAL DIFF ([id number])Indication: HYPERTENSION, NOS On: :40 Request METABOLIC PANEL, COMPREHENSIVE (02834)Indication: HYPERTENSION, NOS On: Request FECAL OCCULT- Tubes sent home (24049)Indication: Anemia, unspecified On: 38 Request IRON (29870)Indication: Anemia, unspecified On: Request CBC WITH MANUAL DIFF (27200)Indication: HYPERTENSION, NOS On: Request METABOLIC PANEL, COMPREHENSIVE (54590)Indication: Uncontrolled type II diabetes mellitus On: : Request TSH (THYROID STIMULATING HORMONE) (14205)Indication: Acquired hypothyroidism On: :08 Request HgA1C , Office (67410)Indication: Diabetes mellitus type 2, controlled On: 23-Qvq-188188:55 Request VITAMIN B-12 (CYANOCOBALAMIN) (82061)Indication: Other vitamin B12 deficiency anemia On: :17 Request LIPID PANEL (45568)Indication: Other and unspecified hyperlipidemia On: 8-Zmj-494503:17 Request MICROALBUMIN: CREATININE RATIO (37947) AND (48542)Indication: Uncontrolled type II diabetes mellitus On: :17 Request METABOLIC PANEL, COMPREHENSIVE (14546)Indication: Uncontrolled type II diabetes mellitus On: :17 Request HgA1C , Office (96232)Indication: Diabetes mellitus type 2, controlled On: 26-Pqj-318975:25 Request LIPID PANEL (08325)Indication: Other and unspecified hyperlipidemia On: :11 Request METABOLIC PANEL, COMPREHENSIVE (93517)Indication: Diabetes mellitus type 2, controlled On: 94-Rot-448873:11 Request MICROALBUMIN: CREATININE RATIO (46632) AND (76200)Indication: Diabetes mellitus type 2, controlled On: 12-Otk-338084:11 Request VITAMIN B-12 (CYANOCOBALAMIN) (78896)Indication: Other vitamin B12 deficiency anemia On: :11 Request CBC, PLATELETS & AUT DIFF (65804)Indication: Other vitamin B12 deficiency anemia On: 65-Rqf-986386:11 Request Vitamin D Hydroxy (78277)Indication: Vitamin D deficiency, unspecified On: 75-Ehb-996640:10 Request Blood Glucose , Office (05539)Indication: Diabetes mellitus type 2, controlled On: 28-Fgm-190450:29 Request LIPID PANEL (08778)Indication: Other and unspecified hyperlipidemia On: :26 Request Vitamin D Hydroxy (14194)Indication: Vitamin D deficiency, unspecified On: :26 Request VITAMIN B-12 (CYANOCOBALAMIN) (48873)Indication: Other vitamin B12 deficiency anemia On: : Request METABOLIC PANEL, COMPREHENSIVE (60862)Indication: Benign essential hypertension (Renamed from Benign essential HTN) On: :26 Request MICROALBUMIN: CREATININE RATIO (10652) AND (63415)Indication: Uncontrolled type II diabetes mellitus On: 4-Uhp-100276:26 Request Sputum Culture (61441)Indication: Chronic cough On: 6-Ill-779978:58 Request RANI CULTURE-OTHER (31686)Indication: Sore throat On: 34-Wtg-579966:06 Request Urinalysis, Office (34143)Indication: Abnormal urine On: 1-Pow-151725:14 Request RANI CULTURE-OTHER (12821)Indication: Abnormal urine On: 6-Bzm-704811:14 Request CCP ANTIBODY (71527)Indication: History of poliomyelitis (Renamed from H/O acute poliomyelitis) On: :22 Request ANTI-Sm (ANTI [place] ANTIBODY) (42452) test code 412692Ksvbpbjbpv: History of poliomyelitis (Renamed from H/O acute poliomyelitis) On: : Request RHEUMATOID FACTOR-QUANT (82790) test code 809641Tmnqqgowrq: History of poliomyelitis (Renamed from H/O acute poliomyelitis) On: : Request Vitamin D Hydroxy (43378)Indication: Vitamin D deficiency, unspecified On: 23-Dhr-675709:15 Request LIPID PANEL (63917)Indication: Other and unspecified hyperlipidemia On: 75-Uue-572655:15 Request TSH (66957)Indication: Acquired hypothyroidism On: :15 Request METABOLIC PANEL, COMPREHENSIVE (10652)Indication: Diabetes mellitus type 2, controlled On: 57-Sct-159344:14 Request VITAMIN B-12 (CYANOCOBALAMIN) (84191)Indication: Other vitamin B12 deficiency anemia On: 60-Fwj-551386:08 Request MICROALBUMIN: CREATININE RATIO (64317) AND (50426)Indication: Uncontrolled type II diabetes mellitus On: 17-Uua-712388:30 Request METABOLIC PANEL, COMPREHENSIVE (31038)Indication: Uncontrolled type II diabetes mellitus On: 03-Aqd-919953:30 Request TSH (03635)Indication: Acquired hypothyroidism On: :30 Request Vitamin D Hydroxy (58580)Indication: Vitamin D deficiency, unspecified On: 40-Dfm-684782:30 Request LIPID PANEL (53993)Indication: Other and unspecified hyperlipidemia On: :29 Request LIPID PANEL (85188)Indication: Other and unspecified hyperlipidemia On: 51-Vik-435168:51 Request TSH (03350)Indication: Acquired hypothyroidism On: 93-Goy-273580:50 Request Vitamin D Hydroxy (20053)Indication: Vitamin D deficiency, unspecified On: 36-Gcd-250294:50 Request CBC WITH MANUAL DIFF (08715)Indication: Diabetes mellitus type 2, controlled On: 28-Spi-672532:50 Request METABOLIC PANEL, COMPREHENSIVE (01653)Indication: Diabetes mellitus type 2, controlled On: 04-Mrd-348360:50 Request Vitamin D Hydroxy (93978)Indication: Vitamin D deficiency, unspecified On: 62-Zyz-315457:44 Request VITAMIN B-12 (CYANOCOBALAMIN) (93486)Indication: Other vitamin B12 deficiency anemia On: :44 Request CBC WITH MANUAL DIFF (02712)Indication: Anemia, unspecified On: 35-Ciu-650888:43 Request METABOLIC PANEL, COMPREHENSIVE (37898)Indication: Diabetes mellitus type 2, controlled On: 06-Vcf-489134:43 Request MICROALBUMIN: CREATININE RATIO (02462) AND (63138)Indication: Diabetes mellitus type 2, controlled On: 36-Qrq-833502:43 Request LIPID PANEL (10447)Indication: Other and unspecified hyperlipidemia On: :43 Request TSH (15910)Indication: Acquired hypothyroidism On: 38-Fhx-924238:43 Request Vitamin D Hydroxy (49582)Indication: Vitamin D deficiency, unspecified On: 6-Dmi-407532:03 Request LIPID PANEL (33335)Indication: Other and unspecified hyperlipidemia On: 4-Pij-968440:03 Request CBC WITH MANUAL DIFF (99830)Indication: Diabetes mellitus type 2, controlled On: 7-Vqo-470712:02 Request METABOLIC PANEL, COMPREHENSIVE (86558)Indication: Diabetes mellitus type 2, controlled On: 2-Lui-044737:02 Request VITAMIN B-12 (CYANOCOBALAMIN) (24830)Indication: Other vitamin B12 deficiency anemia On: 7-Cxn-970254:36 Request Comments: Lot #[id number]-left deltoidDose-1 mlgiven by: Dani Rivera LPN LIPID PANEL (03664)Indication: Other and unspecified hyperlipidemia On: :28 Request METABOLIC PANEL, COMPREHENSIVE (09999)Indication: Uncontrolled type II diabetes mellitus On: :28 Request TSH (16491)Indication: Acquired hypothyroidism On: :28 Request Vitamin D Hydroxy (49851)Indication: Vitamin D deficiency, unspecified On: :22 Request CBC WITH MANUAL DIFF (37603)Indication: Anemia, unspecified On: : Request CBC WITH MANUAL DIFF (08622)Indication: Other vitamin B12 deficiency anemia On: :20 Request Blood Glucose , Office (28976)Indication: Uncontrolled type II diabetes mellitus On: :15 Request Comments: 149 HgA1C , Office (57145)Indication: Uncontrolled type II diabetes mellitus On: :15 Request METABOLIC PANEL, COMPREHENSIVE (32665)Indication: Other and unspecified hyperlipidemia On: :22 Request LIPID PANEL (89568)Indication: Other and unspecified hyperlipidemia On: 67-Azw-359890:22 Request TSH (06051)Indication: Acquired hypothyroidism On: 98-Ppj-434063:22 Request HEMOGLOBIN GLYCLATED (HGB A1C) (57654)Indication: Abnormal glucose tolerance test On: 10-Exj-013707:20 Request VITAMIN B-12 (CYANOCOBALAMIN) (22622)Indication: Other vitamin B12 deficiency anemia On: 46-Uyv-419229:17 Request Vitamin D Hydroxy (53605)Indication: Vitamin D deficiency, unspecified On: 6-Ows-704400:21 Request VITAMIN B-12 (CYANOCOBALAMIN) (86572)Indication: Other vitamin B12 deficiency anemia On: 5-Twh-942804:20 Request LIPID PANEL (29952)Indication: Abnormal glucose tolerance test On: :20 Request CBC WITH MANUAL DIFF (65503)Indication: Abnormal glucose tolerance test On: :20 Request METABOLIC PANEL, COMPREHENSIVE (71229)Indication: Abnormal glucose tolerance test On: 1-Cbm-376742:20 Request METABOLIC PANEL, COMPREHENSIVE (62060)Indication: Abnormal glucose tolerance test On: 9-Msd-583123:59 Request CBC WITH MANUAL DIFF (07162)Indication: Abnormal glucose tolerance test On: :59 Request Vitamin D Hydroxy (74836)Indication: Vitamin D deficiency, unspecified On: :59 Request VITAMIN B-12 (CYANOCOBALAMIN) (91940)Indication: Other vitamin B12 deficiency anemia On: 6-Cmn-667134:59 Request TSH (35455)Indication: Acquired hypothyroidism On: 2-Zrb-135435:58 Request LIPID PANEL (34444)Indication: Other and unspecified hyperlipidemia On: :58 Request CCP ANTIBODY (33175)Indication: Pain in unspecified joint On: 42-Fef-674268:22 Request VITAMIN B-12 (CYANOCOBALAMIN) (60478)Indication: Other vitamin B12 deficiency anemia On: :10 Request Vitamin D Hydroxy (69448)Indication: Vitamin D deficiency, unspecified On: 0-Qaw-451115:10 Request MICROALBUMIN: CREATININE RATIO (29199) AND (21779)Indication: Uncontrolled type II diabetes mellitus On: :10 Request CBC WITH MANUAL DIFF (01175)Indication: Uncontrolled type II diabetes mellitus On: 0-Miz-985207:10 Request METABOLIC PANEL, COMPREHENSIVE (78803)Indication: Benign essential hypertension (Renamed from Benign essential HTN) On: 8-Zbr-250695:09 Request LIPID PANEL (78597)Indication: Other and unspecified hyperlipidemia On: 9-Jdk-797355:09 Request TSH (60680)Indication: Acquired hypothyroidism On: 0-Wgu-032247:39 Request VITAMIN B-12 (CYANOCOBALAMIN) (79358)Indication: Other vitamin B12 deficiency anemia On: 8-Gci-110925:37 Request HEPATIC FUNCTION PANEL (96089)Indication: Other and unspecified hyperlipidemia On: 9-Xqj-308605:36 Request LIPID PANEL (97148)Indication: Other and unspecified hyperlipidemia On: 0-Iee-425487:36 Request Vitamin D Hydroxy (22563)Indication: Vitamin D deficiency, unspecified On: 8-Xhc-750090:36 Request METABOLIC PANEL, COMPREHENSIVE (69550)Indication: Benign essential hypertension (Renamed from Benign essential HTN) On: 9-Zct-614667:35 Request LIPID PANEL (00476)Indication: Other and unspecified hyperlipidemia On: 9-Qcq-187603:35 Request Vitamin D Hydroxy (83621)Indication: Vitamin D deficiency, unspecified On: 7-Xeq-311707:30 Request Vitamin D Hydroxy (93656)Indication: Vitamin D deficiency, unspecified On: 21-Kug-911821:10 Request MICROALBUMIN: CREATININE RATIO (68985) AND (64402)Indication: Uncontrolled type II diabetes mellitus On: 39-Mma-396106:07 Request LIPID PANEL (20931)Indication: Other and unspecified hyperlipidemia On: :07 Request TSH (29405)Indication: Acquired hypothyroidism On: :07 Request VITAMIN B-12 (CYANOCOBALAMIN) (57368)Indication: Other vitamin B12 deficiency anemia On: 89-Klb-610863:42 Request Vitamin D Hydroxy (72454)Indication: Vitamin D deficiency, unspecified On: 40-Aci-028199:50 Request IRON BINDING CAPACITY (TIBC) (51228)Indication: Iron (Fe) deficiency anemia On: :50 Request LDH (LD) (LACTATE DEHYDROGENASE) (09822)Indication: Iron (Fe) deficiency anemia On: :50 Request FERRITIN (64552)Indication: Iron (Fe) deficiency anemia On: :50 Request IRON (11878)Indication: Iron (Fe) deficiency anemia On: :50 Request CBC WITH MANUAL DIFF (38425)Indication: Iron (Fe) deficiency anemia On: 87-Rrz-261470:50 Request HEPATIC FUNCTION PANEL (87394)Indication: Other and unspecified hyperlipidemia On: :44 Request LIPID PANEL (16185)Indication: Other and unspecified hyperlipidemia On: :44 Request CBC WITH MANUAL DIFF (15404)Indication: Other vitamin B12 deficiency anemia On: :54 Request MICROALBUMIN: CREATININE RATIO (41146) AND (91565)Indication: Glucose intolerance (no malabsorption) On: 2-Ldq-984603:54 Request METABOLIC PANEL, COMPREHENSIVE (56697)Indication: HYPERTENSION, NOS On: 3-Iye-074181:54 Request LIPID PANEL (65839)Indication: Other and unspecified hyperlipidemia On: :53 Request VITAMIN B-12 (CYANOCOBALAMIN) (03767)Indication: Other vitamin B12 deficiency anemia On: 4-Bff-494176:53 Request IRON (35977)Indication: Iron (Fe) deficiency anemia On: 4-Sag-373184:53 Request Vitamin D Hydroxy (32200)Indication: Osteopenia On: 0-Mmu-265418:49 Request Methylmalonic acid, serum 64063Nozqackdvf: Other vitamin B12 deficiency anemia On: :03 Request VITAMIN B-12 (CYANOCOBALAMIN) (01193)Indication: Other vitamin B12 deficiency anemia On: :03 Request TSH (56427)Indication: Acquired hypothyroidism On: :03 Request HgA1C , Office (21788)Indication: Abnormal glucose tolerance test On: 9-Xrj-296684:06 Request TSH (06815)Indication: Acquired hypothyroidism On: :35 Request LIPID PANEL (49692)Indication: Other and unspecified hyperlipidemia On: :35 Request METABOLIC PANEL, COMPREHENSIVE (48784)Indication: SOB (shortness of breath) on exertion On: :34 Request CBC WITH MANUAL DIFF (85679)Indication: SOB (shortness of breath) on exertion On: :34 Request TSH (46716)Indication: Acquired hypothyroidism On: 7-Gwt-042248:46 Request Comments: do in 6 weeks TSH (01037)Indication: Acquired hypothyroidism On: 76-Ttn-458510:15 Request Comments: DO IN 6 WEEKS WITH MEDICATION CHANGE TSH (49600)Indication: Other malaise and fatigue On: :49 Request Iron Binding Capacity (TIBC) (60025)Indication: Iron (Fe) deficiency anemia On: :43 Request Ferritin (37563)Indication: Iron (Fe) deficiency anemia On: :43 Request Iron (01678)Indication: Iron (Fe) deficiency anemia On: :43 Request HEPATIC FUNCTION PANEL (47622)Indication: Mixed hyperlipidemia On: :42 Request LIPID PANEL (42958)Indication: Mixed hyperlipidemia On: 06-Wjk-228619:42 Request Comments: do in 3 months HEPATIC FUNCTION PANEL (01459)Indication: Mixed hyperlipidemia On: :11 Request LIPID PANEL (28933)Indication: Mixed hyperlipidemia On: :11 Request Comments: do in 3 mo TSH (91244)Indication: Acquired hypothyroidism On: Request VITAMIN B-12 (CYANOCOBALAMIN) (39313)Indication: Anemia, unspecified On: Request LDH (LD) (LACTATE DEHYDROGENASE) (49089)Indication: Anemia, unspecified On: Request RETICULOCYTE COUNT MANUL (32705)Indication: Anemia, unspecified On: Request IRON BINDING CAPACITY (TIBC) (94080)Indication: Anemia, unspecified On: Request IRON (99073)Indication: Anemia, unspecified On: Request FOLIC ACID SERUM (77978)Indication: Anemia, unspecified On: Request HAPTOGLOBIN (79397)Indication: Anemia, unspecified On: Request FERRITIN (53175)Indication: Anemia, unspecified On: Request CBC, PLATELETS & AUT DIFF (95493)Indication: Anemia, unspecified On: Request HgA1C , Office (87941)Indication: Abnormal glucose tolerance test On: : Request CBC with manual diff (49206)Indication: Anemia, unspecified On: :49 Request HgA1C , Office (87034)Indication: Abnormal glucose tolerance test On: 23-Hdl-535673:30 Request Comments: controlled URINALYSIS W/O MICRO (10516)Indication: HYPERTENSION, NOS On: 11-Bkf-423429:03 Request TSH ([id number])Indication: Acquired hypothyroidism On: : Request MICROALBUMIN URINE QUANT (42995)Indication: HYPERTENSION, NOS On: 12-Yku-770810:03 Request METABOLIC PANEL, COMPREHENSIVE (76141)Indication: HYPERTENSION, NOS On: :03 Request LIPID PANEL (61075)Indication: HYPERTENSION, NOS On: :03 Request CBC WITH MANUAL DIFF ([id number])Indication: HYPERTENSION, NOS On: :03 Request Planned Encounters Medical; 3 Week FU - On: 29-Aug-2018 11:15 [facility] Melanie KEBEDE, Doris Melanie DO, Doris Melanie DO, Doris Planned Procedures Radiology - Lumbar SpineBy: Melanie On: 24-Jun-2018 Intent DO, Doris Melanie DO, Doris Melanie DO, Doris Aerosol Treatment ([id number])By: On: 14-Apr-2018 Intent Thelma Sofia Comments: Lungs clear after albuterol aerosol treatment Ultrasound - LiverBy: Melanie KEBEDE, On: 21-Nov-2017 Intent Doris Melanie DO, Doris Melanie DO, Doris B 12 Injection, 1000 mcg ([id number])By: On: 21-Nov-2017 Intent Melanie KEBEDE Doris Melanie DO, Comments: Vitamin b12 1000mcg injection lot:[id number]:04/2019L DELT IMpt tolerated well MSMITH,[facility] Doris Melanie DO, Doris PHYSICAL THERAPY (56930)By: [place] On: 28-Oct-2017 Intent Thelma Radiology - Hip - LeftBy: [place], On: 28-Oct-2017 Intent Thelma Aerosol Treatment (39279)By: Melanie On: 07-Aug-2017 Intent DO Doris Melanie DO, Doris Comments: more a/e less nois e Melanie DODoris Spirometry (27560)By: Melanie KEBEDE, On: 07-Aug-2017 Intent Doris Melanie DO, Doris Melanie Comments: really poor techniq DO, Doris Radiology - Chest- PA and LatBy: On: 07-Aug-2017 Intent Melanie DO, Doris Melanie DO, Doris Melanie DO, Doris IV Needle placement (64011)By: On: 02-Aug-2017 Intent Melanie DO, Doris Melanie DO, Doris Melanie DO, Doris INFUSION, NORMAL SALINE SOLUTION , On: 02-Aug-2017 Intent 1000 CC (Special Coverage Comments: lot:[id number]:02-26-2019rte:right anticubdose:1000ml given by:david GORMAN signedER, [facility] Instructions Apply. See [facility]: 2048) ([id number])By: Doris Navarro DO, DO, Kathleen Fearon DO, Kathleen INFUSION, NORMAL SALINE SOLUTION , On: 01-Aug-2017 Intent 1000 CC (Special Coverage Comments: lot:[id number]:02-26-2019rte:IV left anticubdose:1000ml NS given by:david GORMAN signedER, [facility] Instructions Apply. [facility] [facility]: 2048) (J7030)By: Marcia Britton Aerosol Treatment ([id number])By: Melanie On: 01-Aug-2017 Intent Doris KEBEDE DO, Kathleen Comments: more a/e less junky sounding Doris Navarro DO PNEUM VAC ADLT/IMUMNOSPR, SBC/INTRM On: 25-Apr-2017 Intent ([id number])By: Doris Navarro DO Comments: 0.5cc [place] sq [place] [id number] exp 09/05/18 Doris Navarro DO DODoris INTENSIVE BEHAVIORAL THERAPY TO On: 25-Apr-2017 Intent REDUCE CARDIOVASCULAR DISEASE RISK, INDIVIDUAL, [id number], ANNUAL, 15 MINUTES (G0446)By: Doris Navarro DO DO, Doris Navarro DODoris [id number] BEHAVIORAL COUNSELING On: 25-Apr-2017 Intent FOR OBESITY, 15 MINUTES (G0447)By: Doris Navarro DO Melanie DO, Doris Melanie DO, Doris B 12 Injection, 1000 mcg (J3420)By: On: 25-Apr-2017 Intent Doris Navarro DO DO, Comments: 1 ml given lt arm lot [id number] exp 03/15 Doris Jay DO ELECTROCARDIOGRAM, COMPLETE (ECG) On: 25-Apr-2017 Intent ([id number])By: Doris Navarro DO Comments: nsr no acute chg Doris Navarro DO DO, Doris B 12 Injection, 1000 mcg (J3420)By: On: 14-Mar-2017 Intent Doris Navarro DO DO, Comments: lot [id number] mcgas, [facility] Doris Melanie DO, Doris B 12 Injection, 1000 mcg (J3420)By: On: 31-Dec-2016 Intent Melanie DO, Doris Melanie DO, Comments: [id number], [facility] Doris Melanie DO, Doris B 12 Injection, 1000 mcg (J3420)By: On: 20-Sep-2016 Intent Melanie DO, Doris Melanie DO, Comments: lot:[id number]: 11/13Dose: 1,000 mcgSite: R dltdLocation; IMby:, [facility] Doris Melanie DO, Doris Solu- Medrol Injection, 125mg On: 20-Aug-2016 Intent (J2930)By: Melanie DO, Doris Comments: lot: [id number]: 01/14site/route: LGM/IMamt:2mLVIS signed when applicableChelsea, [employer] SYSTEM[employer] ARCHITECT Melanie DO, Doris Melanie DO, Doris Aerosol Treatment ([id number])By: Melanie On: 20-Aug-2016 Intent DO, Doris Melanie DO, Doris Comments: albulterol 0.83%relistedned nad more a/e less noise Melanie DO, Doris B 12 Injection, 1000 mcg (J3420)By: On: 20-Aug-2016 Intent Melanie DO, Doris Melanie DO, Comments: lot: [id number]: ite/route: L del/IMamt: 1mLVIS signed when applicableChelsea, [employer] ARCHITECT Doris Melanie DO, Doris Spirometry (26501)By: Melanie DO, On: 16-Aug-2016 Intent Doris Melanie DO, Doris Melanie Comments: ok stable - DO, Doris Aerosol Treatment ([id number])By: Melanie On: 16-Aug-2016 Intent DO, Doris Melanie DO, Doris Comments: albulterol 0.83%more a.e stil some niose in RUL -- junky and easy to cough Melanie DO, Doris Solu- Medrol Injection, 125mg On: 16-Aug-2016 Intent (J2930)By: Doris Navarro DO Comments: lot [id number] mgright gm, IMas [facility] Melanie DO, Doris Melanie DO, Doris B 12 Injection, 1000 mcg (J3420)By: On: 20-Jul-2016 Intent Melanie DO, Doris Melanie DO, Comments: B12lot:[id number]:ite:rt deltroute:IMdose:1mlD.HAY Valentin Doris Melanie DO, Doris Solu- Medrol Injection, 125mg On: 20-Jul-2016 Intent (J2930)By: Doris Navarro DO Comments: lot: [id number]: 01/14site/route: RGM/IMamt: 2mLVIS signed when applicableSIMI Salas Melanie DO, Doris Melanie DO, Doris Aerosol Treatment ([id number])By: Melanie On: 20-Jul-2016 Intent DO, Doris Melanie DODoris Comments: less wheeze good a/e- less irritability with breathing Doris Navarro DO Radiology - Chest- PA and LatBy: On: 20-Jul-2016 Intent Melanie DO, Doris Melanie DO, Doris Melanie DO, Doris Spirometry ([id number])By: Melanie KEBEDE, On: 20-Jul-2016 Intent Doris Melanie DO, Doris Melanie Comments: mild restriction =- poor curve and technique DO, Doris ELECTROCARDIOGRAM, COMPLETE (ECG) On: 20-Jul-2016 Intent ([id number])By: Doris Navarro DO Comments: sinus braden no acute chg Melanie DO, Doris Melanie DO, Doris B 12 Injection, 1000 mcg (J3420)By: On: 29-May-2016 Intent Melanie DO, Doris Melanie DO, Comments: Lot:[id number]:11/13Dose:1mlRoute:IMSite:r armGiven By:SAADIA signed Doris Doris Navarro DO Flu Vaccine (Quadrivalent) [id number]: On: 29-May-2016 Intent Doris Navarro DO Melanie DO, Comments: Lot:[id number]:01/25/17Dose:0.5mLRoute:IMSite:L DltdGiven By:SAADIA signed Doris Melanie DO, Doris B 12 Injection, 1000 mcg (J3420)By: On: 21-May-2016 Intent Melanie DO, Doris Melanie DO, Doris Melanie DO, Doris B 12 Injection, 1000 mcg (J3420)By: On: 18-May-2016 Intent Melanie DO, Doris Melanie DO, Comments: B12lot:[id number]:ite:rt deltroute:IMdose:1mlD.HAY Valentin Doris Melanie DO, Doris B 12 Injection, 1000 mcg (J3420)By: On: 11-May-2016 Intent Melanie DO, Doris Melanie DO, Comments: lot [id number] mcgleft dltdas, [facility] Doris Melanie DO, Doris B 12 Injection, [...] mcg (J3420)By: On: 20-Apr-2016 Intent Melanie DO, Doirs Melanie DO, Comments: lot: [id number]: ite/route: R del/IMamt: 1mLVIS signed when applicableSIMI Salas Doris Melanie DO, Doris B 12 Injection, 1000 mcg (J3420)By: On: 13-Apr-2016 Intent Mckinley Valentin Comments: B12lot:[id number]:ite:lt deltroute:IMdose:1mlD.HAY Valentin INTENSIVE BEHAVIORAL THERAPY TO On: 09-Apr-2016 Intent REDUCE CARDIOVASCULAR DISEASE RISK, INDIVIDUAL, [id number], ANNUAL, 15 MINUTES (G0446)By: Melanie DO, Doris Melanie DO, Doris Melanie DO, Doris HNPA-EL-VWGG BEHAVIORAL COUNSELING On: 09-Apr-2016 Intent FOR OBESITY, 15 MINUTES (G0447)By: Melanie DO, Doris Melanie DO, Doris Melanie DO, Doris MAMMOGRAM, SCREENING, BOTH BREAST On: 09-Apr-2016 Intent ([id number])By: Melanie DO, Doris Melanie DO, Doris Melanie DO, Doris DEXA SCAN AXIAL SKELETON (31050)By: On: 09-Apr-2016 Intent Melanie DO, Doris Melanie [...] Comments: Lot:[id number]:04/14Dose:1mlRoute:IMSite:l armGiven By:SAADIA signed Aerosol Treatment (37176)By: Alexy On: 03-Aug-2015 Intent DO Maggie A B 12 Injection, 1000 mcg (J3420)By: On: 17-May-2015 Intent Alexy KEBEDE Maggie A Comments: Lot:[id number]:11/12Dose:1mlRoute:IMSite:l armGiven By:SAADIA signed Flu Vaccine (Quadrivalent) [id number]: On: 17-May-2015 Intent Alexy KEBEDE Maggie A Comments: lot [id number]: 01/26/2016site/route L sol, IMamt 0.5mlVIS and ABN signed when applicableChelsSIMI jamisonFM4 ADMINISTRATION OF INFLUENZA VIRUS On: 17-May-2015 Intent VACCINE (G0008)By: Maggie Tracey DO A B 12 Injection, 1000 mcg (J3420)By: On: 15-Feb-2015 Intent Kanika Georges Comments: Lot:[id number]:11.16Route:IMSite:R deltoidDose: 1 mLgiven by: Kanika Georges CMA DANIEL (Ankle Brachial Index) On: 08-Feb-2015 Intent (06138)By: Maggie Tracey DO Radiology - Lumbar SpineBy: Alexy KEBEDE, On: 08-Feb-2015 Intent Maggie Armstrong Ultrasound - ThyroidBy: Alexy KEBEDE, On: 09-Nov-2014 Intent Maggie A B 12 Injection, 1000 mcg (J3420)By: On: 09-Nov-2014 Intent Maggie Tracey DO Comments: lot [id number] mcgleft dlCARYN Hall Radiology - Chest- PA and LatBy: On: 13-Sep-2014 Intent Maggie Tracey DO A Comments: call stat Pulse Oximetry ([id number])By: Alexy KEBEDE, On: 13-Sep-2014 Intent Maggie Armstrong Comments: 97% Inhaler Demonstration (70046)By: On: 07-Sep-2014 Intent Kimberley Loyd CNP Radiology - Chest- PA and LatBy: On: 14-Jul-2014 Intent Maggie Tracey DO A Comments: call rsults Spirometry (38619)By: Alexy KEBEDE, On: 14-Jul-2014 Intent Maggie A Comments: good effort and curve mild rest /obst Prevnar 13 ([id number])By: Alexy KEBEDE, On: 30-Jun-2014 Intent Maggie A Comments: lot [id number] 09/2015location L armroute imgiven by - msmithVIS and/or ABN signed MAMMOGRAM, SCREENING, BOTH BREAST On: 14-Apr-2014 Intent ([id number])By: Maggie Tracey DO B 12 Injection, 1000 mcg (J3420)By: On: 14-Apr-2014 Intent Alexy DO Maggie A Comments: Lot #[id number] date:mount given:1mlRoute: IMSite given: left deltoidGiven by: HAY Zavala Cartoid DopplerBy: Maggie Tracey DO A On: 14-Apr-2014 Intent Eprescribed prescriptions (G8553)By: On: 07-Oct-2013 Intent Alexy KEBEDE Maggie A DXA, BONE DENSITY, AXIAL SKELETON On: 20-Jul-2013 Intent ([id number])By: Maggie Tracey DO Comments: aug Pelvic and Breast, Medicare On: 20-Jul-2013 Intent (G0101)By: Maggie Tracey DO Cartoid DopplerBy: Alexy DO Maggie A On: 07-Jul-2013 Intent Eprescribed prescriptions (G8553)By: On: 07-Jul-2013 Intent Raiza Ortiz FLU VAC, SPLIT, >3 YEARS, INTRAMUSC On: 04-May-2013 Intent ([id number])By: Maritza Cantor Comments: lot [id number] 2014site/route L sol, IMamt 0.5mlVIS and ABN signed when applicableChelsea, [facility] ADMINISTRATION OF INFLUENZA VIRUS On: 04-May-2013 Intent VACCINE (G0008)By: Maritza Cantor Radiology - Hip - LeftBy: Alexy KEBEDE, On: 07-Apr-2013 Intent Maggie Armstrong Eprescribed prescriptions (G8553)By: On: 07-Apr-2013 Intent Raiza Ortiz Eprescribed prescriptions (G8553)By: On: 05-Jan-2013 Intent Raiza Ortiz Spirometry (43854)By: Alexy KEBEDE, On: 01-Dec-2012 Intent Maggie A Comments: good effort and curve normal Radiology - Chest- PA and LatBy: On: 01-Dec-2012 Intent Fast DO, Maggie A Comments: stat call wet read Eprescribed prescriptions (G8553)By: On: 01-Dec-2012 Intent Raiza Ortiz Pulse Oximetry (55434)By: Angel, On: 01-Dec-2012 Intent Raiza Comments: 98% Eprescribed prescriptions (G8553)By: On: 27-Nov-2012 Intent Melanie DO, Doris Melanie DO, Doris Melanie DO, Doris MAMMOGRAM, SCREENING, BOTH BREASTS On: 29-Sep-2012 Intent ([id number])By: Maggie Tracey DO A EKG (35748)By: Raiza Ortiz On: 29-Sep-2012 Intent Comments: ekg- 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 axis and no acute st t wave changes Eprescribed prescriptions (G8553)By: On: 29-Sep-2012 Intent Raiza Ortiz Eprescribed prescriptions (G8553)By: On: 03-Sep-2012 Intent Raiza Ortiz Eprescribed prescriptions (G8553)By: On: 30-Jul-2012 Intent Raiza Ortiz B 12 Injection, 1000 mcg (J3420)By: On: 23-Jun-2012 Intent Alexy DO Maggie A Comments: Lot:[id number]:Dose:1mlRoute:IMSite:L armGiven By:SAADIA signed Eprescribed prescriptions (G8553)By: On: 23-Jun-2012 Intent Raiza Ortiz B 12 Injection, 1000 mcg (J3420)By: On: 25-Mar-2012 Intent Maricruz Rivera LPN Comments: Lot #[id number]-06/10Site-right deltoidDose-1 mlgiven by: Dani Rivera LPN Eprescribed prescriptions (G8553)By: On: 25-Mar-2012 Intent Alexy KEBEDE Maggie A FLU VAC, SPLIT, >3 YEARS, INTRAMUSC On: 25-Mar-2012 Intent ([id number])By: Patsy Leslie LPN Comments: Lot/Exp: [id number], 12/2011Given in L Dltd, IMPrefilled SyringeBy CARYN Garner ADMINISTRATION OF INFLUENZA VIRUS On: 25-Mar-2012 Intent VACCINE (G0008)By: Patsy Leslie LPN Echo CompleteBy: Maggie Tracey DO A On: 07-Dec-2011 Intent B 12 Injection, 1000 mcg (J3420)By: On: 07-Dec-2011 Intent [address] LPN CT - OtherBy: Maggie Tracey DO A On: 03-Oct-2011 Intent Comments: get cta of carotid arteries TDAP VACCINE >7 IM ([id number])By: On: 03-Oct-2011 Intent Raiza Ortiz B 12 Injection, 1000 mcg (J3420)By: On: 07-Sep-2011 Intent Raiza Ortiz Comments: Lot #[id number]-07/09Site-left deltoidDose-1 mlgiven by: Dani Rivera LPN Cartoid DopplerBy: Maggie Tracey DO On: 07-Sep-2011 Intent Comments: in september DXA, BONE DENSITY, AXIAL SKELETON On: 07-Sep-2011 Intent (12525)By: Maggie Tracey DO MAMMOGRAM, SCREENING, BOTH BREASTS On: 07-Sep-2011 Intent (17238)By: Maggie Tracey DO Aerosol Treatment (33712)By: Cipeng On: 08-Aug-2011 Intent IVANKimberley EKG (06296)By: Raiza Ortiz On: 06-Jun-2011 Intent Comments: ekg showed normal sinus rhythym, left axis, no acute st/t wave changes DXA, BONE DENSITY, AXIAL SKELETON On: 06-Jun-2011 Intent (28148)By: Maggie Tracey DO FLU VAC, SPLIT, >3 YEARS, INTRAMUSC On: 11-May-2011 Intent (46690)By: Maricruz Rivera LPN Comments: Lot #[id number]-72/20/Site-left deltoidgiven by: Dani Rivera LPN B 12 [...] Eprescribed prescriptions (G8553)By: On: 05-Mar-2011 Intent Camelia Tracye DOa A B 12 Injection, 1000 mcg [...] PNEUM VAC ADLT/IMUMNOSPR, SBC/INTRM On: 03-Jul-2010 Intent (53063)By: Maggie Tracey DO Comments: Lot #[id number]-09/29/11Site-left deltoidDose- 0.5mlgiven by:[facility] ADMINISTRATION OF PNEUMOCOCCAL On: 03-Jul-2010 Intent VACCINE (G0009)By: Maggie Tracey DO MAMMOGRAM, SCREENING, BOTH BREASTS On: 03-Jul-2010 Intent ([id number])By: Camelia Tracey DOa A B 12 Injection, 1000 mcg (J3420)By: On: 20-Jun-2010 Intent Fast DO, Maggie A Comments: Lot #[id number]-12/07Site-left deltoidDose-1 mlgiven by:[facility] B 12 Injection, 1000 mcg (J3420)By: On: 10-May-2010 Intent Apoorva Calle Comments: Lot:[id number]:12/07Dose:1000mcg/1mlRoute:IMSite:right deltoid Given by: HAY Birch FLU VAC, SPLIT, >3 YEARS, INTRAMUSC On: 10-May-2010 Intent (34333)By: Apoorva Calle Comments: Lot:[id number]:10/2010Dose:0.5mlRoute:IMSite:Left Deltoid Given by: HAY Birch ADMINISTRATION OF INFLUENZA VIRUS On: 10-May-2010 Intent VACCINE (G0008)By: Apoorva Calle Doppler Ultrasound OtherBy: Alexy KEBEDE, On: 12-Apr-2010 Intent Maggie A Comments: both legs stat- left leg swelling- call wet read Spirometry (21920)By: Alexy KEBEDE, On: 12-Apr-2010 Intent Maggie A Comments: good effort and curve normal B 12 Injection, 1000 mcg (J3420)By: On: 05-Apr-2010 Intent Maggie Tracey DO Ultrasound - GallbladderBy: Alexy KEBEDE, On: 01-Feb-2010 Intent Maggie Nathaniel IV Needle placement (94358)By: On: 10-Jan-2010 Intent Ana Guzman Comments: IV 22 gauge inserted in right antecubital on first attempt and 0.9 NSS running without difficulty-AW INFUSION, NORMAL SALINE SOLUTION , On: 10-Jan-2010 Intent 1000 CC (Special Coverage Instructions Apply. See MCM: 2049) (J7030)By: Kimberley Loyd CNP THER/PROPH/DIAG INJ, SC/IM On: 10-Jan-2010 Intent (11644)By: Kimberley Loyd CNP Radiology - Knee - Right - Weight On: 03-Jan-2010 Intent BearingBy: Maggie Tracey DO EKG (35401)By: Raiza Ortiz On: 03-Jan-2010 Intent Comments: ekg showed normal sinus rhythym, left axis, no acute st/t wave changes Aerosol Treatment (79290)By: Evert On: 19-Oct-2009 Intent IMMIGRATION ASSOCIATE, Briana Cartoid DopplerBy: Maggie Tracey DO On: 14-Jun-[address] - Brain/HeadBy: Maggie Tracey DO On: 06-Jun-2009 Intent MAMMOGRAM, SCREENING, BOTH BREASTS On: 06-Jun-2009 Intent (05859)By: Maggie Tracey DO DXA, BONE DENSITY, AXIAL SKELETON On: 06-Jun-2009 Intent (87147)By: Maggie Tracey DO FLU VAC, SPLIT, >3 YEARS, INTRAMUSC On: 12-May-2009 Intent (64167)By: Maricruz Rivera LPN Comments: Lot #[id number]-left deltoidgiven by:[facility] ADMINISTRATION OF INFLUENZA VIRUS On: 12-May-2009 Intent VACCINE (G0008)By: Maricruz Rivera LPN Radiology - Hand - RightBy: Alexy KEBEDE, On: 26-Jan-2009 Intent Maggie Armstrong Radiology - Wrist - RightBy: Fast On: 26-Jan-2009 Intent Maggie KEBEDE Comments: call wet read Pulse Oximetry (71546)By: Alexy KEBEDE, On: 27-Dec-2008 Intent Maggie A Comments: 98 Inhaler Demo (25796)By: Alexy KEBEDE, On: 27-Dec-2008 Intent Maggie Armstrong Spirometry (15162)By: Alexy KEBEDE, On: 27-Dec-2008 Intent Maggie A Comments: good effort and curve has small airways diminished Radiology - Chest- PA and LatBy: On: 27-Dec-2008 Intent Maggie Tracey DO Echo CompleteBy: Maggie Tracey DO On: 08-Nov-2008 Intent Comments: elevated bp - increase patricia EKG (00269)By: Maggie Tracey DO A On: 08-Nov-2008 Intent Comments: ekg showed normal sinus rhythym, leftl axis, no acute st/t wave changes rsr unchanged Bio Z (38548)By: Maggie Trcaey DO On: 08-Nov-2008 Intent Inhaler Demo (32527)By: Melanie KEBEDE, On: 02-Sep-2008 Intent Doris Navarro DO, Doris Jay DO Aerosol Treatment (45642)By: Melanie On: 02-Sep-2008 Intent DO, Doris Melanie DO, Doris Comments: less echoey -- better less cough Melanie DO, Doris EKG (76695)By: Melanie DO Doris On: 16-Dec-2007 Intent Melanie [...] LSN TRNK/ARM/LEG On: 09-Jul-2007 Intent 0.6-1.0 CM (55919)By: Kimberley Loyd CNP BIOPSY OF SKIN LESION, SINGLE On: 09-Jul-2007 Intent (65672)By: Kimberley Loyd CNP SHAVE SKIN LESION, TRUNK/ARM/LEG On: 02-Jul-2007 Intent (32514)By: Kimberley Loyd CNP BIOPSY OF SKIN LESION, SINGLE On: 02-Jul-2007 Intent (09700)By: Kimberley Loyd CNP B 12 Injection, 1000 mcg (J3420)By: On: 02-Jul-2007 Intent Lashonda Lee LPN FLU VAC, SPLIT, >3 YEARS, INTRAMUSC On: 04-Jun-2007 Intent (97762)By: Jing Cabello RN Comments: Lot #: [id number] date: 01/03Amount given: 0.5 MLRoute: IMSite given: Left deltoidGiven by: Nathaniel Beal LPN IMMUNIZ ADMNIN, 1 VAC, SNGL/COMBO On: 04-Jun-2007 Intent (69609)By: Jing Cabello RN B 12 Injection, 1000 [...] Doris Melanie DO, Doris Melanie DO, Drois IV Infusion (79569)By: Melanie DO, On: 18-Oct-2006 Intent Doris Melanie DO, Doris Melanie DO, Doris EKG (76393)By: Doris Navarro DO On: 10-Oct-2006 Intent Melanie [...] Injection Solution Ordered: 07-Feb-2011 Pending Thelma Khan [facility] Vitamin B-12 1000 MCG/ML Injection Solution Ordered: 05-Mar-2011 Pending Fast DO, Maggie A Vitamin B-12 1000 MCG/ML Injection Solution Ordered: 11-May-2011 Pending Hluszti [facility], Maricruz Vitamin B-12 1000 MCG/ML Injection Solution Ordered: 07-Sep-2011 Pending Raiza Ortiz Vitamin B-12 1000 MCG/ML Injection Solution Ordered: 07-Dec-2011 Pending Anuj [facility], Patsy L Vitamin B-12 1000 MCG/ML Injection Solution Ordered: 25-Mar-2012 Pending Hluszti [facility], Maricruz Vitamin B-12 1000 MCG/ML Injection Solution [...] The patient does have durable power of plant operator and living will. Other providers contributing to [...] 13 steps at home. I was at [facility] for 3 days in ICU I broke [...] The patient does have durable power of plant operator and living will. The patient has noticed [...] and she off pravastatin and went to [place] and now on 5 mg of crestor- and tolerated she got leg pain and weakness on pravachol- - she got good [employer] on stroke and vascular in [place]- --bp is good and cough gone and [...] The patient does have durable power of plant operator and living will. The damián ent has [...] since going to the urgent care at [facility]- on atb yet but will finish [...] stroke sx mood controlled has followup in [facility] for vascular issues soon- no chest [...] The patient does have durable power of plant operator and living will. The patient has noticed [...] not home- no gerd - went to [place] for artery checks and doing ok there- [...] laboratory test results: she went back to [facility] Saw Dr Shruthi Quinones- ??head of [...] ER visit: note: (stroke she was at [facility] x 5days released on saturday05/22/12 to 05/27/12). The patient feels well with minor complaints, has decreased energy End: 29-May-2012 14:12 level and is sleeping well. Patient has been compliant with instructions. Current medication use: compliant with dosing regimen. Patient sleeps 7 hours per night. Nutrition: balanced diet and supplement al vitamins. [facility] nowEnc[facility] Diagnosis: CVA (434.91), Benign essential hypertension (401.1), Diabetes type II,controlled no comp (250.00), Hypothyroidism (244.9), Carotid stenosis (433.10) [facility] Office Visit On: 22-May-2012 10:33 Encounter Reason: Follow up hospital - Reason for ER visit: note: (TIA. ??Patient was seen by [facility] ER x 3 times last week and then sent to [facility] for psych eval.). 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
--- OUTSIDE RECORDS SUMMARY | 2018-10-18 12:33 | XMS RPT_ITS | Continuity of Care Document ---
:1940 Author Organization [facility] Address [address] [place] [address] Phone Care Team Providers Name Role Phone Doris Navarro DO Unavailable Camacho Serrano Unavailable Flakito Morales Unavailable [facility] Unavailable Marcello Stein Unavailable Sal Urrutia Unavailable [...] artery stenosis (I65.23, 433.10) Comments: goes to [facility] yearly to follow Status: Active Bilateral [...] related to fatty liver -- did nutrition intake counselor and wt loss / metformin and [...] depression ? anx and sstress? ekg in miguel in ER ok no cp /for other [...] 0 days Quantity: 100 {Tablet} Refills: 0 Ordered:31-Jul-2018 Arnold Navarro DO, DO, KathleenFearon DO, Kathleen Start : 31-Jul-2018 Active Comments:one ufuldezH52.90 TraZODone HCl 100 MG Oral Tablet 1-1/2 [...] days Quantity: 30 {Tablet_ER_24HR} Refills: 4 Ordered:22-Aug-2012 Lasohnda Lee LPN Start : 30-Jul-2012 End : [...] Start : 26-Sep-2016 End : 12-Dec-2017 Inactive [place] 5-325 MG Oral Tablet 1 q 4hrs [...] : 07-Sep-2014 End : 13-Sep-2014 Discontinued ERGOCALCIFEROL, 57388HJKL (Oral Capsule) 1 (one) Capsule q week [...] days Quantity: 90 {Tablet} Refills: 3 Ordered:29-Sep-2012 Aelxy KEBEDEMaggie Start : 29-Sep-2012 End : 29-Sep-2012 Discontinued L-METHYLFOLATE CALCIUM, 15MG (Oral Tablet) 1 (one) Tablet qd for 30 days Quantity: 30 {Tablet} Refills: 3 Ordered:19-Aug-2015 Raiza Ortiz Start : 06-Jan-2014 End : 19-Aug-2015 Discontinued MELOXICAM, 7.5MG (Oral Tablet) 1 (one) Tablet daily for 30 days Quantity: 30 {Tablet} Refills: 3 Ordered:09-Sep-2009 Alexy KEBEDEMaggie Start : 09-Sep-2009 End : 09-Sep-2009 Discontinued [...] days Quantity: 30 {Tablet} Refills: 3 Ordered:19-Aug-2015 Alexy KEBEDECameliaa Nathaniel Start : 19-Aug-2015 End : 19-Aug-2015 Discontinued [...] End : 23-Jun-2012 Discontinued VITAMIN D (ERGOCALCIFEROL), 87772ZUJL (Oral Capsule) 1 Capsule q week for 0 days Quantity: 12 {Capsule} Refills: 2 Ordered:19-Aug-2015 Raiza Ortiz Start : 07-Apr-2013 End : 19-Aug-2015 Discontinued VITAMIN D, 49391VFGG (Oral Capsule) 1 (one) Capsule q week [...] Instruction Result: Comments: See Note; NOTES: [facility] Medical Records Department [address] [place] [address] Discharge Instruction 07/16/18 1405 MR#: [id number] Acct: [id number] Name: MARICRUZ GRIGSBY Rep #: [id number] : 1940 78 From: Johnnie Baez MD [...] Primary Care Pro vider. Call Doctors Registry ([phone]) or report to the closest Emergency Room. Call 911 if necessary. 07/16/18 9929 <Electronically signed by Johnnie Baez MD> Date Johnnie Baez MD Cosigner Signature (If Indicated): Date CC: Doris Navarro 16-Jul-2018 Emergency Department Summary Result: Comments: See Note; NOTES: [facility] Medical Records Department [address] [place] [address] Emergency Department Summary 07/16/18 1249 MR#: [id number] Acct: [id number] Name: MARICRUZ GRIGSBY Rep #: [id number] : 1940 78 From: Johnnie Baez MD PCP: Doris Navarro DO Status: DEP ER - ER Visit Summary Date of Service: 07/16/18 Chief Complaint: Nausea, vomit ing and diarrhea. History of Present Illness: The patient is a 78 F past medical history of prior stroke, hypertension wxe-fwrhqix-aoerlsxyz diabetes. Patient states last 3-4 days she [...] secondary to viral gastroenteritis History of no v-ckcoxcd-vwjsbuqqk diabetes. This note was generated with Tutors[employer] software. It may contain incorrect words, spelling, and punctuation that were not noted in review of the chart prior to sig yaniv ED Disposition - Plan for ED Patient: Chief Complaint: Nausea/Vomiting/Diarrhea Referrals: Doris Navarro, [Primary Care Provider] - What to do if you have Problems For any increased christy n, shortness of breath, bleeding, nausea or vomiting, chest pain, or any unexpected problems, contact your Primary Care Provider. Call Doctors Registry ([phone]) or report to the closest Emergency Room. Call 911 if necessary. 07/16/18 1647 <Electronically signed by Johnnie Baez MD> Date Johnnie Baez MD Cosigner Signature ( If Indicated): Date CC: Doris Navarro DO 24-Jun-2018 L/S Spine Min 4 Views Result: Comments: See Note; NOTES: [facility] Imaging Services [address] [place] [address] L/S Spine Min 4 Views MR#: [id number] Acct: [id number] Name: MARICRUZ GRIGSBY Rep # : [id number] : 1940 F 78 From: Mack Soni MD PCP: Doris Navarro DO Status: REG CLI Study: L/S Spine Min 4 Views Date of Exam: 06/24/18 Exam# [id number] Ordering Dr: Doris Navarro DO SANDI DY: [...] Service support , CC: Doris Navarro DO Filter Cleaner: Signed 14-May-2018 Emergency Department Summary Result: Comments: See Note; NOTES: [facility] Medical Records Department [address] [place] [address] Emergency Department Summary 05/14/18 0908 MR#: [id number] Acct: [id number] Name: CLIFFORD CRUZMARICRUZ Stuart Rep #: [id number] : 1940 78 From: Zee Denise MD [...] family doctors she is re ferred to [facility] for the shoulder injury and she will return for change in symptoms and she is comfortable with this plan Treatment Plan: [] Disposition: [] Stable home Impression: [] Fall left rib fracture, left shoulder injury This note was generated with [employer] dictation software. It may contain incorrect words, spelling, and punctuation that were not noted in review of the [facility] rt prior to signing ED Disposition - Plan for ED Patient: Chief Complaint: Fall Referrals: Doris Navarro, DO [Primary Care Provider] - What to do if you have Problems For any increased pain, sh ortness of breath, bleeding, nausea or vomiting, chest pain, or any unexpected problems, contact your Primary Care Provider. Call Doctors Registry ([phone]) or report to the closest Emergency Room. Call 911 if necessary. 05/14/18 1530 <Electronically signed by Zee Denise MD> Date Zee Denise MD Cosigner Signatur e (If Indicated): Date CC: Doris Navarro DO 14-May-2018 Discharge Instruction Result: Comments: See Note; NOTES: [facility] Medical Records Department [address] [facility] [place] [address] Discharge Instruction 05/14/18 1133 MR#: [id number] Acct: [id number] Name: MARICRUZ GRIGSBY Rep #: [id number] : 1940 78 From: Zee Denise MD PCP: Doris Navarro DO Status: REG ER ED Disposition - Plan for ED Patient: Chief Complaint: Fall Instructions: ED M echanical Fall, ED Fx Rib, ED Sprain Shoulder, ED Sling Prescriptions: Hydrocodone Bitart/Apap 5-325 [[place] 5MG-325MG] 1 tab PO Q6H PRN PRN 3 Days #10 tab PRN Reason: Pain Referrals: Doris Navarro DO [Primary Care Provider] - What to do if you have Problems For any increased pain, shortness of breath, bleeding, nausea or vomiting, chest pain, or any unexpected problems, contact your Primary Car e Provider. Call Doctors Registry ([phone]) or report to the closest Emergency Room. Call 911 if necessary. 05/14/18 1134 <Electronically signed by Zee Denise MD> Date ___ Zee Denise MD Cosigner Signature (If Indicated): Date CC: Doris Melanie KEBEDE 14-May-2018 Chest PA and Lateral Result: Comments: See Note; NOTES: [facility] Imaging Services [address] [place] [address] Chest PA and Lateral MR#: [id number] Acct: [id number] Name: MARICRUZ GRIGSBY Rep #: [id number] : 1940 F 78 From: Teo Wayne MD PCP: Doris Navarro DO Status: REG ER Study: Chest PA and Lateral Date of Exam: 05/14/18 Exam# [id number] Ordering Dr: Zee Denise MD STUDY: X-RAY [...] Teo Wayne MD at 10:11 EDT Tel [phone], Zibby e support , CC: MD Sonam Denise; Doris Navarro DO Filter Cleaner: Signed 14-May-2018 Elbow min 3 Views Result: Comments: See Note; NOTES: [facility] Imaging Services [address] [place] [address] Elbow min 3 Views MR#: [id number] Acct: [id number] Name: MARICRUZ GRIGSBY Rep #: [id number] : 1940 F 78 From: Teo Wayne MD PCP: Doris Navarro DO Status: REG ER Study: Elbow min 3 Views Date of Exam: 05/14/18 Exam# [id number] Ordering Dr: Zee Denise MD STUD Y: [...] Teo Wayne MD at 10:12 EDT Tel [phone], Service support , CC: MD Sonam Denise; Doris Navarro DO Filter Cleaner: Signed 14-May-2018 Shoulder min 2 Views Result: Comments: See Note; NOTES: [facility] Imaging Services [address] [place] [address] Shoulder min 2 Views MR#: [id number] Acct: [id number] Name: MARICRUZ GRIGSBY Rep #: [id number] : 1940 F 78 From: Teo Wayne MD PCP: Doris Navarro DO Status: REG ER Study: Shoulder min 2 Views Date of Exam: 05/14/18 Exam# [id number] Ordering Dr: Zee Denise MD STUDY: X-RAY [...] Wayne MD at 11:02 EDT Tel [phone], Service support , CC: MD Sonam Denise; Doris Navarro DO Filter Cleaner: Signed 06-Feb-2018 History and Physical Exam Result: Comments: See Note; NOTES: [facility] Medical Records Department [address] [place] [address] History and Physical 02/06/182050 MR#: [id number] Acct: [id number] Name: CLIFFORD MARICRUZ CRUZ Rep #: [id number] : 1940 77 From: María Barnes MD [...] cholecystectomy Psychiatric History: No pertinent psych hx DEATH CLEARANCE COORDINATOR History: No pertinent DEATH CLEARANCE COORDINATOR history Lives: Spouse/ Significant Other Smoking Status: [...] Subcu heparin. This note was generated with Getui software. It may contain incorrect words, spelling, and punctuation that were not noted in checking the note before signing. Code Visit OBSV Deepika AND M: 51026 Initial observation care L3 8 2108 <Electronically signed by María Barnes MD> Date María Barnes MD Cosigner Signature: Date (if applicable) CC: María Barnes; Doris Navarro DO Signed 06-Feb-2018 Brain/Head without Contrast Result: Comments: See Note; NOTES: [facility] Imaging Services [address] [place] [address] Brain/Head without Contrast MR#: [id number] Acct: [id number] Name: MARICRUZ GRIGSBY Rep #: [id number] : 1940 F 77 From: Renata Lee MD PCP: Doris Navarro DO Status: REG Study: Brain/Head without Contrast Date of Exam: 02/06/18 Exam# [id number] Ordering Dr: Cameron Marte MD STUDY: CT [...] [place] infarct of the mid kralene. There is mild cerebellar atrophy. There is [...] , CC: Doris Navarro DO; Jered Marte Filter Cleaner: Signed 06-Feb-2018 Chest 1 View Result: Comments: See Note; NOTES: [facility] Imaging Services [address] [place] [address] Chest 1 View MR#: [id number] Acct: [id number] Name: MARICRUZ GRIGSBY Rep #: [id number] : 1940 F 77 From: Renata Lee MD PCP: Doris Navarro DO Status: REG ER Study: Chest 1 View Date of Exam: 02/06/18 Exam# [id number] Ordering Dr: Jered Marte MD STUDY: X-RAY [...] , CC: Doris Navarro DO; Jered Marte Filter Cleaner: Signed 25-Nov-2017 Liver Result: Comments: See Note; NOTES: [facility] Imaging Services [address] [place] [address] Liver MR#: [id number] Acct: [id number] Name: MARICRUZ GRIGSBY Rep #: [id number] : 1940 F 77 From: Mack Hand MD PCP: Doris Navarro DO Status: REG CLI Study: Liver Date of Exam: 11/25/17 Exam# [id number] Ordering Dr: Doris Navarro DO STUDY: ABDOMINAL [...] MD at 12:34 EDT , Service support [phone], CC: Doris Navarro DO Filter Cleaner: Signed 29-Oct-2017 Hip 2-3 Views with Pelvis Result: Comments: See Note; NOTES: [facility] Imaging Services [address] [place] [address] Hip 2-3 Views with Pelvis MR#: [id number] Acct: [id number] Name: CLIFFORD CRUZMARICRUZ L R ep #: [id number] : 1940 F 77 From: Benji Finch PCP: Doris Navarro DO Status: REG CLI Study: Hip 2-3 Views with Pelvis Date of Exam: 10/29/17 Exam# [id number] Ordering Dr: Thelma Sofia [employer]- C STUDY: X-RAY - PELVIS AND LEFT [...] , CC: QUINN Sofia; Doris Navarro DO Filter Cleaner: Signed 27-Aug-2017 12 Lead Electrocardiogram Result: Comments: See Note; NOTES: [facility] Cardiovascular Services [address] [place] [address] 12 Lead EKG 08/24/17 1719 MR#: [id number] Acct: [id number] Name: CLIFFORD CRUZPORTIA Rep #: [id number] : 1940 77 From: Maurilio Meraz MD [...] C onfirmed by SOLEDAD STREETER, MAURILIO ([id number]), editor dictionary STACY CARTER (56) on 08/27/2017 10:37:34 AM Referred By: EITAN Confirmed By:MAURILIO MERAZ MD 08/27/17 1037 Date Maurilio Meraz MD CC: Doris Navarro DO Signed 25-Aug-2017 Emergency Department Summary Result: Comments: See Note; NOTES: [facility] Medical Records Department [address] [place] [address] Emergency Department Summary 08/24/17 1709 MR#: [id number] Acct: [id number] Name: CLIFFORD HOBBSMARICRUZ THORNE Rep #: [id number] : 1940 77 From: Zee Denise MD [...] be altered This note was generated with [employer] dictation software. It may contain incorrect words, [...] your Primary Care Provider. Call Doctors Registry ([phone]) or report to the closest Emergency Room. Call 911 if necessary. 08/25/17 0001 <Electronically sig radha by Zee Denise MD> Date Zee Denise MD Cosigner Signature (If Indicated): Date CC: Doris Navarro DO 24-Aug-2017 Discharge Instruction Result: Comments: See Note; NOTES: [facility] Medical Records Department [address] [place] [address] Discharge Instruction 08/24/171819 MR#: [id number] Acct: [id number] Name: MARICRUZ GRIGSBY Rep #: [id number] : 1940 77 From: Zee Denise MD [...] your Primary Care Provider. Call Doctors Registry ([phone]) or report to the closest [facility] Room. Call 911 if necessary. 08/24/17 182 <Electronically signed by Zee Denise MD> Date Zee Denise MD Cosign er Signature (If Indicated): Date CC: Doris Navarro DO 24-Aug-2017 Chest PA and Lateral Result: Comments: See Note; NOTES: [facility] Imaging Services [address] [facility] [place] [address] Chest PA and Lateral MR#: [id number] Acct: [id number] Name: MARICRUZ GRIGSBY Rep #: [id number] : 1940 F 77 From: Stacy Tapia MD PCP: Doris Navarro DO Status: REG ER Study: Chest PA and Lateral Date of Exam: 08/24/17 Exam# [id number] Ordering Dr: Zee Denise MD XR Chest [...] CC: MD Sonam Denise; Doris Navarro DO Filter Cleaner: Signed 07-Aug-2017 Chest PA and Lateral Result: Comments: See Note; NOTES: [facility] Imaging Services [address] [place] [address] Chest PA and Lateral MR#: [id number] Acct: [id number] Name: MARICRUZ GRIGSBY Rep #: [id number] : 1940 F 77 From: Teo Wayne MD PCP: Doris Navarro DO Status: REG CLI Study: Chest PA and Lateral Date of Exam: 08/07/17 Exam# [id number] Ordering Dr: Doris Navarro DO STUDY: X-RAY [...] Logan i, MD at 13:49 EST Tel [phone], Service support , CC: Doris Navarro DO Filter Cleaner: Signed 20-Nov-2016 Operative Report Result: Comments: See Note; NOTES: [facility] Medical Records Department [address] [place] [address] Operative Report 11/14/16 0736 MR#: [id number] Acct: [id number] Name: AMRICRUZ BREAUX Rep #: [id number] : 1940 76 From: Liza Duron DO PCP: Doris Navarro DO Status: DEP [facility] [place] [facility] Report of Operation Date of Procedure: 11/14/16 Pre-Operative Diagnosi s: Right third and fourth trigger fingers Post-Operative Diagnosis: Name Surgery/Procedure Performed:: Right hand third and fourth A1 shannan release Type of Anesthesia:: Block,[place] Anesthesiologist: Fox Michaels Estimated Blood Loss (mL): [...] Dragon disclaimer This note was generated with [employer] dictation software. It may contain incorrect words, spellin g, and punctuation that were not noted in checking the note before signing. 11/20/16 1231 <Electronically signed by Liza Duron DO> Date Liza Duron DO CC: Liza Duron DO; Doris Navarro DO Signed 16-Nov-2016 Oncology Progress Note Result: Comments: See Note; NOTES: [facility] Medical Records Department [address] [place] [address] Oncology Progress Note MR#: [id number] Acct: [id number] Name: PORTIA GRIGSBY Rep #: [id number] : 1940 76 From: Sal Urrutia MD [...] level. Sal Urrutia MD T: NTS JOB: [id number] 11/16/16 0850 <Electronically signed by Sal Urrutia MD> Date Sal Urrutia MD Cosigner Signature (If Indicated): Date CC: Date Dictated: 11/08/16 1305 Date Transcribed: 11/08/161304 Filter Cleaner: Signed 14-Nov-2016 Discharge Instruction Result: Comments: See Note; NOTES: [facility] Medical Records Department [address] [place] [address] Instructions for Home/Discharge Instructions 11/14/16 0735 MR#: [id number] Acct: [id number] Name: MARICRUZ GRIGSBY Rep #: [id number] : 1940 76 From: Liza Duron DO PCP: Doris Navarro DO Status: REG [facility] Dis[place] Diet: No Restrictions - keep dressing [...] mg PO DAILY 11/09/16 Hydrocodone Bitart/Apap 5-325 [[place] 5MG- 325MG] 1 - 2 tablet PO Q6H PRN PRN #20 tablet 11/14/16 The following prescriptions were given: Hydrocodone Bitart/Apap 5- 325 [[place] 5MG-325MG] 1 - 2 tablet PO Q6H PRN PRN #20 tablet PRN Reason: Pain Primary Care Physician: Doris Navarro DO [Primary Care Provider] - Please Follow Up With: Liza Duron - [phone] 11/14/16 0736 <Electronically signed by Liza Duron DO> Date Liza Duron DO CC: Doris Navarro DO 20-Jul-2016 Chest PA and Lateral Result: Comments: See Note; NOTES: [facility] Imaging Services [address] [place] [address] Verdana 4d Chest PA and Lateral MR#: [id number] Acct: [id number] Name: JAQUAN GRIGSBY Rep #: [id number] : 1940 F 76 From: Mack Hand MD PCP: Doris Navarro DO Status: REG CLI Study: Chest PA and Lateral Date of Exam: 07/20/16 Exam# [id number] Ordering Dr: Doris Navarro DO STUDY: X-RAY [...] at 12:24 EST Tel , Service support [phone], CC: Doris Navarro DO Filter Cleaner: Signed 26-Jan-2016 Echocardiogram Complete Result: Comments: See Note; NOTES: [facility] Cardiovascular Services [address] [place] [address] Echo Complete 01/26/16 1008 MR#: [id number] Acct: [id number] Name: MARICRUZ PARMAR Rep #: [id number] : 1940 75 From: Mack Dickerson MD Attending Dr: Maggie Tracey DO Status: REG CLI Ordering Dr: Maggie Tracey DO Date: 01/26/16 Location: [facility] Sex: F C Admitt ed: Reason [...] Date Dictated: 01/26/16 1008 Date Transcribed: 01/26/161611 Filter Cleaner: Signed 05-Dec-2015 Chest 1 View (Portable) Result: Comments: See Note; NOTES: [facility] Imaging Services [address] [place] [address] Verdana 4d Chest 1 View (Portable) MR#: [id number] Acct: [id number] Name: PANDA WANGCORRY MARICRUZ CRUZ Rep #: [id number] : 1940 F 75 From: Yari Garcia MD PCP: Maggie Tracey DO Status: PRE ER Study: Chest 1 View (Portable) Date of Exam: 12/05/15 Exam# [id number] Ordering Dr: Johnnie Baez MD STUDY: X-RAY [...] at 16:44 EDT Tel , Service support [phone], RAD/Chest 1 V iew (Portable) IMPRESSION: Underexpansion of the lungs. Mild to moderate cardiomegaly. Electronically Signed: Yari Garcia MD at 16:44 EDT Tel , Service support [phone], CC: Maggie Tracey DO; Johnnie Baez MD Filter Cleaner: Signed 05-Dec-2015 Spirometry (82574) Comments: good effort and curvenormal Result: 05-Dec-2015 EKG (05246) Comments: ekg showed normal sinus rhythym, normal axis, no acute st/t wave changes Result: [MEASUREMENTS ANALYSIS] Date of Test: 12/05/2015 14:27:41; Heart Rate: 93; MN Interval: 202; QRS: 96; QT Interval: 352; Corrected QT Interval (QTc): 409; P Wave [place]: 48; QRS Wave [place]: -26; T Wave [place] : 55; Blood Pressure: 134/64 [ECG DIAGNOSTIC STATEMENTS] Date of Test: 12/05/2015 14:27:41; Summary: Sinus Rhythm WITHIN NORMAL LIMITS 21-Sep-2015 12 Lead Electrocardiogram Result: Comments: See Note; NOTES: [facility] Cardiovascular Services [address] [place] [address] 12 Lead EKG 09/19/15 0908 MR#: [id number] Acct: [id number] Name: MARICRUZ VIGIL Stuart Rep #: [id number] : 1940 75 From: Maurilio Meraz MD [...] progression Confirmed by SOLEDAD STREETER, MAURILIO ([id number]), editor dictionary STACY ACRTER (56) on 09/21/2015 11:27:40 AM Referred By: JE Confirmed By:MAURILIO MERAZ MD 1127 Date Maurilio Meraz MD CC: Maggie Tracey DO Date Dictated: 09/19/15907 Date Transcribed: 09/19/15907 Filter Cleaner: Signed 19-Sep-2015 Discharge Instruction Result: Comments: See Note; NOTES: [facility] Medical Records Department [address] [place] [address] Discharge Instruction 09/19/15 1020 MR#: [id number] Acct: [id number] Name: MARICRUZ GRIGSBY Rep #: [id number] : 1940 75 From: Johnnie Baez MD [...] chest pain, or any unexpected problems, contact [facility] doctor. Call Doctors Registry ([phone]) or report to the closest Emergency Room. Call 911 if necessary. 09/19/15 5864 <Electronically signed by Johnnie Baez MD> Date __ Johnnie Baez MD Cosigner Signature (If Indicated): Date CC: Maggie Tracey DO 19-Sep-2015 Emergency Department Summary Result: Comments: See Note; NOTES: [facility] Medical Records Department [address] [place] [address] Emergency Department Summary MR#: [id number] Acct: [id number] Name: MARICRUZ GRIGSBY Rep #: [id number] : 1940 75 From: Johnnie Baez MD PCP: Maggie Tracey DO Status: [facility] DATE OF SERVICE: 09/19/2015 CHIEF COMPLAINT: [...] MD C C: Maggie Tracey DO T: NTS JOB: [id number] 09/19/15 1755 <Electronically signed by Johnnie Baez MD& amp;#62; Date Johnnie Baez MD Cosigner Signature (If Indicated): Date CC: Maggie Tracey DO Date Dictated: 09/19/15 1019 Date Transcribed: 09/19/15 1019 Filter Cleaner: Signed 07-Sep-2015 Chest PA and Lateral Result: Comments: See Note; NOTES: [facility] Imaging Services [address] [place] [address] Verdana 4d Chest PA and Lateral MR#: [id number] Acct: [id number] Name: MARICRUZ HADLEY Stuart Rep #: [id number] : 1940 F 75 From: Kali Raymundo MD PCP: Maggie Tracey DO Status: REG CLI Study: Chest PA and Lateral Date of Exam: 09/07/15 Exam# [id number] Ordering Dr: Maggie Irwin DO STUDY: X-RAY [...] FACR at 11:41 EST , Service support [phone], RAD/Chest PA and Lateral IMPRESSION: No significant changes. Stable moderate cardiomegaly. Bilateral interstitial changes more prominent on the right. Electroni marcus Signed: Kali Raymundo MD, FACR at 11:41 EST , Service support [phone], CC: Maggie Tracey DO Filter Cleaner: Signed 07-Sep-2015 Spirometry (65225) Comments: good effort and curve normal Result: 24-Mar-2015 PT Discharge Summary Result: Comments: See Note; NOTES: [facility] Physical Therapy [facility] [address] [place] [address]. [address] [place] [address] Fax REHABILITATION SERVICES DISCHARGE SUMMARY MR#: [id number] Acct: [id number] Name: MARICRUZ GRIGSBY #: [id number] : 1940 75 From: Yuni Clark Referring [...] discharge. Yuni Clark, PT T: NTS JOB: [id number] <Electronically signed by Yuni Clark > 03/24/15 1227 CC: Maggie Tracey DO Signed 17-Feb-2015 Inital Evaluation - PT Result: Comments: See Note; NOTES: [facility] Physical Therapy [facility] [address] [place] [address]. [address] [place] [address] Fax REHABILITATION SERVICES INITIAL EVALUATION MR#: [id number] Acct: [id number] Name: MARICRUZ GRIGSBY Rep #: [id number] : 1940 75 From: Yuni Clark Referring DrDonnie: Maggie Tracey DO Status: REG RCR Insurance : MEDICARE PART A B Eval Date: [facility] DATE OF SERVICE: 02/16/2015 SUBJECTIVE: This [...] care. Yuni Clark, PT T: NTS JOB: [id number] <Electronically signed by Yuni Clark > 02/17/15 1011 CC: Signed For Medicare only, by seng yao this I certify the plan of care. Physicians Signature Date 08-Feb-2015 L/S Spine Min 4 Views Result: Comments: See Note; NOTES: [facility] Imaging Services [address] [place] [address] Radiology Report MR#: [id number] Acct: [id number] Name: MARICRUZ GRIGSBY Rep #: [id number] : 1940 F 74 From: Teo Wayne MD PCP: Maggie Tracey DO Status: REG CLI Study: L/S Spine Min 4 Views Date of Exam: 02/08/15 Exam# [id number] Ordering Dr: Maggie Tracey DO STUDY: X-RAY [...] Wayne MD a t 12:30 EDT Tel [phone], Service support [phone], RAD/L/S Spine Min 4 Views IMPRESSION: Degenerative changes of the spine, as detailed above. Electro nically Signed: Teo Wayne MD at 12:30 EDT Tel [phone], Service support [phone], CC: Maggie Tracey DO Filter Cleaner: Signed 15-Nov-2014 Thyroid Result: Comments: See Note; NOTES: [facility] Imaging Services [address] [place] [address] Ultrasound Report MR#: [id number] Acct: [id number] Name: MARICRUZ GRIGSBY Rep #: [id number] : 1940 F 74 From: Julián Trivedi DO PCP: Maggie Tracey DO Status: REG CLI Study: Thyroid Date of Exam: 11/15/14 Exam# [id number] Ordering Dr: Maggie Tracey DO STUDY: THYROID [...] Julián Trivedi DO at 16:51 EDT Tel [phone], Service support [phone], Fax CC: Maggie Tracey DO Filter Cleaner: Signed 13-Sep-2014 Chest PA and Lateral Result: Comments: See Note; NOTES: [facility] Imaging Services [address] [facility] [place] [address] Radiology Report MR#: [id number] Acct: [id number] Name: MARICRUZ GRIGSBY Rep #: [id number] : 1940 F 74 From: Donato Abdi MD PCP: Maggie Tracey DO Status: REG CLI Study: Chest PA and Lateral Date of Exam: 09/13/14 Exam# [id number] Ordering Dr: Maggie Tracey DO STUDY: X [...] at 12:01 EST Tel , Service support [phone], CC: Maggie Tracey DO Filter Cleaner: Signed 15-Jul-2014 Chest PA and Lateral Result: Comments: See Note; NOTES: [facility] Imaging Services [address] [place] [address] Radiology Report MR#: [id number] Acct: [id number] Name: MARICRUZ GRIGSBY Rep #: [id number] : 1940 F 74 From: Teo Wayne MD PCP: Maggie Tracey DO Status: REG CLI Study: Chest PA and Lateral Date of Exam: 07/15/14 Exam# [id number] Ordering Dr: Maggie Tracey DO SANDI DY: [...] Teo Wayne MD at 9:42 EST Tel [phone], Service support [phone], CC: Maggie Tracey DO Filter Cleaner: Signed 10-May-2014 Bilat Scrn Digital & CAD Result: Comments: See Note; NOTES: [facility] Imaging Services [address] [place] [address] Breast Imaging Report MR#: [id number] Acct: [id number] Name: MARICRUZ GRIGSBY #: [id number] : 1940 F 74 From: Gene Phillips PCP: Maggie Tracey DO Status: REG CLI Exam# [id number] Ordering Dr: Maggie Tracey DO MAMMOGRAPHY - [...] these results will be sent [facility] ient by the facility within 30 days. Approximately 10% of breast cancers are not detected by mammography. A normal mammogram should not delay biopsy of a clinically suspicious abnormality. Electro nically Signed: Jessenia Phillips MD at 19:48 EDT Tel , Service support [phone], CC: Maggie Tracey DO Filter Cleaner: Signed 10-Sep-2013 Dexa Bone Density Study (HP) Result: Comments: See Note; NOTES: [facility] Imaging Services [address] [place] [address] Bone Density Report MR#: [id number] Acct: [id number] Name: MARICRUZ GRIGSBY #: [id number] : 1940 F 73 From: Teo Wayne MD PCP: Maggie Tracey DO Status: REG CLI Study: Dexa Bone Density Study () Date of Exam: 09/10/13 Exam# [id number] Ordering Dr: Maggie Tracey DO STUDY: DUAL [...] M.D. at 11:04 EST , Service support [phone], CC: Maggie Tracey DO Filter Cleaner: Signed Immunization Name Dates Details Influenza (3 years and up) on: 04-Jun-2007 Comments: Lot #: [id number] date: 01/03Amount given: 0.5 MLRoute: IMSite given: Left deltoidGiven by: Nathaniel Beal LPN Influenza (3 years and up) on: 12-May-2009 Comments: Lot #[id number]-left deltoidgiven by:CDH Family History Unknown Family Member [...] smoker Vital Signs Date Test Result Details :37 Pulse 110 /min Comments: Pattern: Regular Respiration [...] kg/m2 Body Surface Area Calculated 2.01 m2 :08 Pulse 76 /min Comments: Pattern: Regular [...] kg/m2 Body Surface Area Calculated 2.01 m2 54-Ykm-700115:05 Pulse 74 /min Comments: Pattern: Regular Respiration [...] kg/m2 Body Surface Area Calculated 2.06 m2 44-Wuy-460075:15 Pulse 81 /min Comments: Pattern: Regular Respiration [...] kg/m2 Body Surface Area Calculated 2.06 m2 85-Zny-662305:29 Comments: Dr. Reyes and had a glauocma [...] kg/m2 Body Surface Area Calculated 2.03 m2 2-Shl-549364:51 Comments: re check 142/80 Pulse 71 /min [...] kg/m2 Body Surface Area Calculated 2.03 m2 16-Izv-229998:32 Pulse 79 /min Comments: Pattern: Regular O2 [...] Calculated 2.06 m2 :38 Comments: hearing wnlDrDonnie Amy and herrera da glaucoma test done [...] administered 81mg asa orally at this time [facility] BP Systolic 156 mm[Hg] Comments: [...] kg/m2 Body Surface Area Calculated 2.04 m2 19-Nqy-304478:37 Temperature 96.5 f Pulse 68 /min Comments: [...] Cuff Location: Left Arm; Cuff Size: Large 50-Psa-118296:52 Temperature 97.3 f Pulse 60 /min Comments: [...] 0 in Head Circumference 0.00 cm : Temperature 98.9 f Comments: Method: Undefined Pulse [...] 0.00 cm Results Date Description Value Details 25-Fyc-696654:55 Basic Metabolic Profile (BMP) Comments: [facility] [address] [place], [place], [address] GAP 13 (Normal) Range: 5-15 CO2 25.0 [...] criteria.Please note revised GLUCOSE reference range /02/2018. 02-Xwy-063724:55 CBC W/Diff, Automated Comments: [facility] [address] [place], [place], [address] Absolute Lymph 0.98 {X10_3/ul} (Normal) Range: 0.83-4.51 [...] 4.2-5.4 WBC 9.1 K/mm3 (Normal) Range: 4.4-11.0 05-Nae-190275:50 Rapid Strep Test, Office (66958) Rapid Strep Test, Office Negative (Normal) :58 TSH (13615) Comments: PATIENT NOT FASTINGPERFORMED BY: [facility] Vwfiyk9111 [facility] [id number] TSH 5.590 {uIU/mL} (Abnormal) Range: 0.450-4.500 1-Ocg-924908:58 T4, FREE (THYROXINE) (37788) Comments: PATIENT NOT FASTINGPERFORMED BY: [address] [id number] T4,Free(Direct) 1.81 ng/dL (Abnormal) Range: 0.82-1.77 7-Iow-754780:58 T3, FREE (TRIDOTHYRONINE) (82022) Comments: PATIENT NOT FASTINGPERFORMED BY: [facility] [id number] Triiodothyronine (T3), Free 2.1 pg/mL (Normal) Range: [...] Muscle ABS Comments: Comments: ANTI-LIVER/KIDNEY MICRO AB [id number] [facility] (refer to report for specific site)refer [...] number MELI-DIRECT Negative (Normal) Comments: Performed at: [address] [id number] Director: Constantine Christianson PhD, Phone: [phone] :44 Ceruloplasmin Comments: Comments: ANTI-LIVER/KIDNEY MICRO AB [id number] [facility] (refer to report for specific site)refer to report for address and phone number CERULOPLAS 1560 22.0 mg/dL (Normal) Range: 19.0-39.0 :44 CMV Acute Antibody IgM Comments: Comments: ANTI-LIVER/KIDNEY MICRO AB [id number] [facility] (refer to report for specific site)refer to report for address and phone number CMVIgM AB < 30.0 AU/mL (Normal) Range: 0.0-29.9 Comments: Negative <30.0 Equivocal 30.0 - 34.9 Positive >34.9A positive result is generally indicative of acuteinfection, reactivation or persistent IgM production. :44 Ferritin Comments: Comments: ANTI-LIVER/KIDNEY MICRO AB [id number] [facility] [address] [place], [place], [address] FERRITIN 236 ng/mL (Normal) Range: 8-252 :44 Free T3 Comments: Comments: ANTI-LIVER/KIDNEY MICRO AB [id number] [facility] [address] [place], [place], [id number] FREE T3 1.6 pg/mL (Abnormal) Range: 2.18-3.98 :44 GGTP 64 U/L (Abnormal) Comments: Comments: ANTI-LIVER/KIDNEY MICRO AB [id number] [facility] [address] [place], [place], [address] Range: 5-55 :44 Hepatitis Panel Acute Comments: Comments: ANTI-LIVER/KIDNEY MICRO AB [id number] [facility] (refer to report for specific site)refer to report for address and phone number HEP C AB <0.1 {s/co_ratio} (Normal) Range: 0.0-0.9 Comments: Negative: < 0.8 Indeterminate: 0.8 - 0.9 Positive: > 0.9 The CDC recommends that a positive HCV antibody result be followed up with a HCV Nucleic Acid Amplification test (014379). HB CORE [id number] Negative (Normal) HB SURF AG Negative (Normal) HEP A IgM 6734 Negative (Normal) :44 Liver Profile Comments: Comments: ANTI-LIVER/KIDNEY MICRO AB [id number] [facility] [address] [place], [place], [address] D BILI 0.17 mg/dL (Normal) Range: 0.00-0.30 T BILI 0.60 mg/dL (Normal) Range: 0.20-1.00 ALT 48 U/L (Normal) Range: 13-56 ALK P 93 U/L (Normal) Range: 45-117 AST 43 U/L (Abnormal) Range: 15-37 GLOB 3.5 g/dL (Normal) Range: 2.2-4.2 ALB 3.7 g/dL (Normal) Range: 3.2-5.0 T PROT 7.2 g/dL (Normal) Range: 6.4-8.2 :44 Miscellaneous Lab Procedure Comments: Comments: ANTI-LIVER/KIDNEY MICRO AB [id number] SER/RFTest(s) Ordered: ANTI-LIVER/KIDNEY MICROS AB [id number] [facility] [address]dt[address]eli[address] [place], [place], [id number] [facility] Comments: TEST RESULT UNITS REF INTERVALLiver- Kidney Microsomal Ab <1.0 Units 0.0 - 20.0 Negative 0.0 - 20.0 LAB (Normal) Equivocal 20.1 - 24.9 Positive >24.9LKM type 1 antibodies are detected in patients withautoimmune hepatitis type 2 and in up to 8% ofpatients wi TEST th chronic HCV infection. TESTING PERFORMED AT [facility]. ORIGINAL REPORT ON FILE IN LAB CONTAINS ADDITIONAL TEST SITE INFORMATION. :44 T4 Free Direct Comments: Comments: ANTI-LIVER/KIDNEY MICRO AB [id number] [facility] [address] [place], [address] T4 FREE DIRECT 1.06 ng/dL (Normal) Range: 0.76-1.46 84-Ndm-09388:44 Thyroid Stim Hormone (TSH) Comments: Comments: ANTI-LIVER/KIDNEY MICRO AB [id number] [facility] [address] [place], [address] TSH 16.40 {uIU/mL} (Abnormal) Range: 0.358-3.74 44-Bkk-41270:44 Transferrin Comments: Comments: ANTI-LIVER/KIDNEY MICRO AB [id number] [facility] (refer to report for specific site)refer to report for address and phone number TRANSFERRN 5223 250 mg/dL (Normal) Range: 200-370 Comments: Performed at: [address] [id number] Director: Constantine Christianson PhD, Phone: [phone] 28-Mrk-602615:16 Bedside Glucose Comments: [facility] LaboratoryPoint of [address] [place] [address] BEDSIDE GLU 152 mg/dL (Abnormal) Range: 70-110 Comments: MANAGEMENT OF PATIENT CARE PER NURSING PROTOCOL 38-Civ-334823:45 Basic Metabolic Profile (BMP) Comments: [facility] Tewdciytuv5095 [facility] [place], [address] GAP 8 (Normal) Range: 5-15 [...] A.D.A. criteria.Please note revised GLUCOSE reference range olyxbiysv45/02/2018. 48-Xyi-644719:45 CBC W/Diff, Automated Comments: [facility] [address] [place], [address] Absolute Lymph 1.73 {X10_3/ul} (Normal) Range: 0.83-4.51 [...] 4.2-5.4 WBC 9.5 K/mm3 (Normal) Range: 4.4-11.0 58-Zry-237586:45 Partial Thromboplast Time Comments: [facility] [address] [place], [address] PTT 33.0 s (Normal) Range: 24.1-36.2 97-Rvn-412612:45 Prothrombin Time w/INR Comments: [facility] [address] [place], [address] INR 0.9 (Normal) PROTIME 12.5 s (Normal) Range: 11.7-14.9 06-Lcw-033745:45 Troponin-I Comments: [facility] [address] [place], [id number] TROPONIN-I < 0.015 ng/mL Comments: TROPONIN-I EXPECTED [...] <1.0 {Units} Comments: PATIENT NOT FASTINGPERFORMED BY: [facility] Hospital[facility]endino[facility] [id number] 2:14 Microsomal Ab (Normal) Range: 0.0-20.0 Comments: Negative 0.0 - 20.0 Equivocal 20.1 - 24.9 Positive >24.9 . LKM type 1 antibodies are detected in patients with autoimmune hepatitis type 2 and in up to 8% of patients with chronic HCV infection. 71-Tjx-120907:14 HEPATIC FUNCTION PANEL Comments: PATIENT NOT FASTINGPERFORMED BY: [facility]Traff TechnologyC[facility] [id number] ([address]643) ALT (SGPT) 49 [iU]/L (Abnormal) Range: 0-32 AST (SGOT) 57 [iU]/L (Abnormal) Range: 0-40 Alkaline Phosphatase 100 [iU]/L (Normal) Range: 39-117 Bilirubin, Direct 0.14 mg/dL (Normal) Range: 0.00-0.40 Bilirubin, Total 0.4 mg/dL (Normal) Range: 0.0-1.2 Albumin 4.1 g/dL (Normal) Range: 3.5-4.8 Protein, Total 6.8 g/dL (Normal) Range: 6.0-8.5 40-Zcb-182265:14 HEPATITIS PANEL (47251) Comments: PATIENT NOT FASTINGPERFORMED BY: [facility]ness[facility]or[facility] Lung CenterYkbpyf8513 [facility] [id number] Hep C Virus Ab <0.1 {s/co_ratio} (Normal) Range: 0.0-0.9 Comments: Negative: < 0.8 Indeterminate: 0.8 - 0.9 Positive: > 0.9 . The CDC recommends that a positive HCV antibody result be followed up with a HCV Nucleic Acid Amplification test (583220). Hep B Core Ab, IgM Negative (Normal) HBsAg Screen Negative (Normal) Hep A Ab, IgM Negative (Normal) 12-Scx-352440:14 ANTIMITOCHONDRIAL ANTIBODY Comments: PATIENT NOT FASTINGPERFORMED BY: [facility]Core[facility]6370 [facility] [id number] (30926) Mitochondrial (M2) Antibody <20.0 {Units} (Normal) Range: 0.0-20.0 Comments: Negative 0.0 - 20.0 Equivocal 20.1 - 24.9 Positive >24.9 . Mitochondrial (M2) Antibodies are found in 90-96% of patients with primary biliary cirrhosis. 12-Kae-032139:14 TRANSFERRIN (18902) Comments: PATIENT NOT FASTINGPERFORMED BY: [facility] CorporationCore[facility]6370 [facility] [id number] Transferrin 226 mg/dL (Normal) Range: 200-370 43-Ocd-735931:14 GGT (GAMMA GLUTAMYLTRANSFERASE) Comments: PATIENT NOT FASTINGPERFORMED BY: [facility] [id number] (24642) GGT 59 [iU]/L (Normal) Range: 0-60 53-Tiq-358358:14 FERRITIN (11351) Comments: PATIENT NOT FASTINGPERFORMED BY: COR[facility] Ishaie8563 [facility] [id number] Ferritin, Serum 545 ng/mL (Abnormal) Range: 15-150 00-Clu-253136:14 CMV IGM ANTBDY (43337) Comments: PATIENT NOT FASTINGPERFORMED BY: [facility] CorporationCore[facility]6370 [facility] [id number] Cytomegalovirus (CMV) Ab, IgM <30.0 AU/mL (Normal) Range: 0.0-29.9 Comments: Negative <30.0 Equivocal 30.0 - 34.9 Positive >34.9 A positive result is generally indicative of acute infection, reactivation or persistent IgM production. 33-Bnl-481041:14 CERULOPLASMIN (37351) Comments: PATIENT NOT FASTINGPERFORMED BY: [facility] CorporationW[facility] Uaykee0234 [facility] [id number] Ceruloplasmin 26.3 mg/dL (Normal) Range: 19.0-39.0 68-Tdd-591296:14 ASM (ANTI SMOOTH MUSCLE Comments: PATIENT NOT FASTINGPERFORMED BY: [facility] Ohdfoo2056 [facility] [id number] ANTIBODY) (45714) Actin (Smooth Muscle) Antibody 5 {Units} (Normal) Range: 0-19 Comments: Negative 0 - 19 Weak positive 20 - 30 Moderate to strong positive >30 . Actin Antibodies are found in 52-85% of patients with autoimmune hepatitis or chronic active hepatitis and in 22% of patients with primary biliary cirrhosis. 25-Yny-368596:14 MELI (ANTINUCLEAR ANTIBODY) Comments: PATIENT NOT FASTINGPERFORMED BY: [facility] CorporationCore[facility]6370 [facility] [id number] (86301) MELI Direct Negative (Normal) 27-Hud-047924:33 HgA1C , Office (20227) HgA1C , Office 7.2 % (Abnormal) Range: 4.6 - 7.1 24-Wph-442560:38 MELI (ANTINUCLEAR ANTIBODY) Comments: PATIENT NOT FASTINGPERFORMED BY: [facility] Corporation[facility] Dhzqhq0975 [facility] [id number] (20991) MELI Direct Negative (Normal) 43-Imq-749043:38 VITAMIN B-12 (CYANOCOBALAMIN) Comments: PATIENT NOT FASTINGPERFORMED BY: CORTEZ Gal[facility] Alrjwb1762 [facility] [id number] (33453) Vitamin B12 463 pg/mL (Normal) Range: 232-1245 25-Fvj-371287:38 TSH (44876) Comments: PATIENT NOT FASTINGPERFORMED BY: [facility] Xjkpsm1039 [facility] [id number] TSH 0.062 {uIU/mL} (Abnormal) Range: 0.450-4.500 66-Dcd-399421:38 SED RATE ERYTHROCYTE (24896) Comments: PATIENT NOT FASTINGPERFORMED BY: LabCoDeborah Heart and Lung CenterHfixss8925 [facility] [id number] Sedimentation Rate-Westergren 7 mm/h (Normal) Range: 0-40 37-Xmf-164690:38 METABOLIC PANEL, COMPREHENSIVE Comments: PATIENT NOT FASTINGPERFORMED BY: LabCorewell [facility] Hospital6370 [facility] [id number] (53577) ALT (SGPT) 52 [iU]/L (Abnormal) Range: 0-32 [...] 8-27 Glucose 134 mg/dL (Abnormal) Range: 65-99 37-Qgc-995355:38 C-REACTIVE PROTEIN (31138) Comments: PATIENT NOT FASTINGPERFORMED BY: [facility]WellnessJosh[place] 0909370 [facility] [id number] C-Reactive Protein, Quant 4.8 mg/L (Normal) Range: 0.0-4.9 41-Zet-728326:38 CBC (AUTO) (84009) Comments: PATIENT NOT FASTINGPERFORMED BY: [facility]nessDeborah [facility] Lung CenterTdlext8400 [facility] [id number] Platelets 248 {x10E3/uL} Range: 150-379 (Normal) RDW [...] mg/L (Abnormal) Comments: PATIENT NOT FASTINGPERFORMED BY: [facility]ness[facility] 0909370 [facility] [id number] BY: [address] [id number] 2:25 Serum Range: 0.6-2.4 Comments: Siemens ePetWorldulite 2000 Immunochemiluminometric assay (ICMA) 9-Wre-345165:25 Immunoglobulins Comments: PATIENT NOT FASTINGPERFORMED BY: [place] 3558170 [facility] [id number] BY: [address] [id number] Iga/Ige/Igg/Igm (GAME) (13143) Immunoglobulin E, Total 259 {IU/mL} (Abnormal) Range: 0-100 Immunoglobulin M, Qn, Serum 113 mg/dL (Normal) Range: 26-217 Immunoglobulin A, Qn, Serum 130 mg/dL (Normal) Range: 64-422 Immunoglobulin G, Qn, Serum 837 mg/dL (Normal) Range: 700-1600 4-Fcr-999624:25 LDH (LD) (LACTATE Comments: PATIENT NOT FASTINGPERFORMED BY: [address] [id number] BY: [address] [id number] DEHYDROGENASE) (54667) LDH 195 [iU]/L (Normal) Range: 119-226 7-Azp-651540:25 METABOLIC PANEL, Comments: PATIENT NOT FASTINGPERFORMED BY: [address] [id number] BY: [address] [id number] COMPREHENSIVE (29344) ALT (SGPT) 47 [iU]/L (Abnormal) Range: 0-32 [...] 8-27 Glucose 139 mg/dL (Abnormal) Range: 65-99 4-Isi-202237:25 CBC, PLATELETS & AUT DIFF Comments: PATIENT NOT FASTINGPERFORMED BY: CB [facility] Cunfxs1855 [facility] [id number] BY: BN [facility] Olwwacxprg4089 [facility] [id number] (48136) Immature Grans (Abs) 0.0 {x10E3/uL} (Normal) Range: [...] 3.77-5.28 WBC 7.2 {x10E3/uL} (Normal) Range: 3.4-10.8 39-Fpf-341745:28 Microscopic Examination Comments: PATIENT NOT FASTINGPERFORMED BY: [facility]TrayR[facility] [id number] Bacteria None seen (Normal) Mucus Threads Present (Normal) Cast Type Hyaline casts (Normal) Casts Present {/lpf} (Abnormal) Epithelial Cells (non renal) 0-10 {/hpf} (Normal) Range: 0 - 10 RBC 0-2 {/hpf} (Normal) Range: 0 - 2 WBC >30 {/hpf} (Abnormal) Range: 0 - 5 27-Nui-338501:24 URINE RANI CULTURE-RADHA COL Comments: PATIENT NOT FASTINGPERFORMED BY: [facility] Mxfjec3139 [facility] [id number] Information: SRC:UC COUNT (02115) Antimicrobial MIHEAD (Normal) Comments: S = Susceptible; I = Intermediate; R = Resistant P = Positive; N = Negative MICS are expressed in micrograms per mL Antibiotic RSLT#1 RSLT#2 RS Susceptibility LT#3 RSLT#4Amoxicillin/Clavulanic Acid SAmpicillin RCefepime SCeftriaxone SCefuroxime SCephalothin SCiprofloxacin SGentamicin SImipenem SNitrofurantoin SPiperacillin RTetracycline STobram ycin STrimethoprim/Sulfa S Result 1 Raoultella Comments: 5,000 Colonies/mL planticola (Abnormal) Urine Final report Culture,Comprehensive (Abnormal) 12-Tvk-973028:28 MICROALBUMIN: CREATININE RATIO Comments: PATIENT NOT FASTINGPERFORMED BY: [facility] CorporationW[facility] Yldtes0843 [facility] [id number] (42233) AND (62164) Alb/Creat Ratio 215.8 {mg/g_creat} (Abnormal) Range: 0.0-30.0 Albumin, Urine 245.4 ug/mL (Normal) Creatinine, Urine 113.7 mg/dL (Normal) 28-Qrv-607621:28 URINALYSIS, W/ MICRO (38907) Comments: PATIENT NOT FASTINGPERFORMED BY: [facility]6370 [facility] [id number] Microscopic Examination See below: (Normal) Comments: Microscopic was indicated and was performed. Nitrite, Urine Negative (Normal) Urobilinogen,Semi-Qn 0.2 mg/dL (Normal) Range: 0.2-1.0 Bilirubin Negative (Normal) Occult Blood Negative (Normal) Ketones Negative (Normal) Glucose Trace (Abnormal) Protein 1+ (Abnormal) WBC Esterase 1+ (Abnormal) Appearance Clear (Normal) Urine-Color Yellow (Normal) pH 5.5 (Normal) Range: 5.0-7.5 Specific [place] 1.025 (Normal) Range: 1.005-1.030 39-Abx-153192:28 METABOLIC PANEL, COMPREHENSIVE Comments: PATIENT NOT FASTINGPERFORMED BY: [facility]6370 [facility] [id number] (78415) ALT (SGPT) 37 [iU]/L (Abnormal) Range: 0-32 [...] Glucose, Serum 179 mg/dL (Abnormal) Range: 65-99 36-Zkr-556551:28 CBC, PLATELETS & AUT DIFF Comments: PATIENT NOT FASTINGPERFORMED BY: [facility] Bkxwkr3942 [facility] [id number] (28532) Immature Grans (Abs) 0.0 {x10E3/uL} (Normal) Range: [...] 3.77-5.28 WBC 9.3 {x10E3/uL} (Normal) Range: 3.4-10.8 46-Ceu-799050:28 TSH (THYROID STIMULATING Comments: PATIENT NOT FASTINGPERFORMED BY: [facility]6370 [facility] [id number] HORMONE) (77374) TSH 23.220 {uIU/mL} (Abnormal) Range: 0.450-4.500 34-Crs-335753:28 LIPID PANEL (81235) Comments: PATIENT NOT FASTINGPERFORMED BY: [facility]6370 [facility] [id number] LDL/HDL Ratio 1.7 {ratio_units} (Normal) Range: 0.0-3.2 Comments: LDL/HDL Ratio Men Women 1/2 Avg.Risk 1.0 1.5 Av g.Risk 3.6 3.2 2X Avg.Risk 6.2 5.0 3X Avg.Risk 8.0 6.1 LDL Cholesterol Calc 83 mg/dL (Normal) Range: 0-99 VLDL Cholesterol Priscilla 42 mg/dL (Abnormal) Range: 5-40 HDL Cholesterol 48 mg/dL (Normal) Triglycerides 208 mg/dL (Abnormal) Range: 0-149 Cholesterol, Total 173 mg/dL (Normal) Range: 100-199 04-Jvw-599254:28 CALCIFEDIOL (16864) Comments: PATIENT NOT FASTINGPERFORMED BY: [facility]6370 [facility] [id number] Vitamin D, 25-Hydroxy 25.4 ng/mL (Abnormal) Range: 30.0-100.0 Comments: Vitamin D deficiency has been defined by the [place] of[place]icine and an Endocrine Society practice guideline as alevel of serum 25-OH vitamin D less than 20 ng/mL (1,2).The Endocrine Society went on to further define vitamin Dinsufficiency as a level between 21 and 29 ng/mL (2).1. IOM ([place] of [employer]). 2010. Dietary reference intakes for calcium and D. [place]: The National Academies Press.2. Rachel MF, Yael NC, Dunia HERRERA, et al. Evaluation, treatment, and prevention of vitamin D deficiency: an Endocrine Society clinical practice guideline. JCEM. 2010; 96(7):1911-30. 56-Kwr-395917:40 Basic Metabolic Profile (BMP) Comments: 'TROP' Serial specimen #1, #2, #3, or #4: 1[facility] [address] [place], [address] GAP 11 (Normal) Range: 5-15 CO2 [...] 126 mg/dLsuggests DIABETES MELLITUS per A.D.A. criteria. 84-Wgg-053234:40 BNP,B-Type NATRIURETIC PEPTIDE Comments: [facility] [address] [place], [place], [address] B-TYPE SANJU PEP 13.3 pg/mL (Normal) Range: 0-100 77-Qdx-797028:40 CBC W/Diff, Automated Comments: [facility] [address]ws[address] [place], [address] Absolute Lymph 1.65 {X10_3/ul} (Normal) Range: [...] 4.2-5.4 WBC 4.1 K/mm3 (Abnormal) Range: 4.4-11.0 47-Hsp-485591:40 Troponin-I Comments: 'TROP' Serial specimen #1, #2, #3, or #4: [address] [place] [address] Xyfibzscqj5669 [facility] [place], [place], [id number] TROPONIN-I < 0.02 ng/mL (Normal) Comments: TROPONIN-I EXPECTED VALUES <0.05 NEGATIVE 0.06 - 0.59 AT RISK OF CO > OR = 0.60 SUGGEST CO 78-Gsn-369090:08 Microscopic Examination Comments: PATIENT WAS FASTINGPERFORMED BY: [facility] Rddjai4534 [facility] [id number] Bacteria Few (Normal) Mucus Threads Present (Normal) Cast Type Hyaline casts (Normal) Casts Present {/lpf} (Abnormal) Epithelial Cells (non renal) 0-10 {/hpf} (Normal) Range: 0 - 10 RBC 0-2 {/hpf} (Normal) Range: 0 - 2 WBC 11-30 {/hpf} (Abnormal) Range: 0 - 5 12-Gvs-787605:08 CALCIFIDIOL (56338) VIT D 25 Comments: PATIENT WAS FASTINGPERFORMED BY: [facility] Lung CenterTkcnpj9614 [facility] [id number] Vitamin D, 25-Hydroxy 33.5 ng/mL (Normal) Range: 30.0-100.0 Comments: Vitamin D deficiency has been defined by the [place] of[place] and an Endocrine Society practice guideline as alevel of serum 25-OH vitamin D less than 20 ng/mL (1,2).The Endocrine Society went on to further define vitamin Dinsufficiency as a level between 21 and 29 ng/mL (2).1. IOM ([place] of Medicine). 2010. Dietary reference intakes for calcium and D. [place]: The National Academies Press.2. Rachel MF, Yael MARLEY, Dunia HERRERA, et al. Evaluation, treatment, and prevention of vitamin D deficiency: an Endocrine Society clinical practice guideline. JCEM. 2010; 96(7):1911-30. 29-Jmn-954076:08 TSH (58197) Comments: PATIENT WAS FASTINGPERFORMED BY: [facility] Kxqohg1381 [facility] [id number] TSH 3.700 {uIU/mL} (Normal) Range: 0.450-4.500 09-Trh-133305:08 LIPID PANEL (60152) Comments: PATIENT WAS FASTINGPERFORMED BY: [facility] CorporationCore[facility]6370 [facility] [id number] LDL/HDL Ratio 1.8 {ratio_units} (Normal) Range: 0.0-3.2 Comments: LDL/HDL Ratio Men Women 1/2 Avg.Risk 1.0 1.5 Av g.Risk 3.6 3.2 2X Avg.Risk 6.2 5.0 3X Avg.Risk 8.0 6.1 LDL Cholesterol Calc 84 mg/dL (Normal) Range: 0-99 VLDL Cholesterol Priscilla 49 mg/dL (Abnormal) Range: 5-40 HDL Cholesterol 46 mg/dL (Normal) Triglycerides 243 mg/dL (Abnormal) Range: 0-149 Cholesterol, Total 179 mg/dL (Normal) Range: 100-199 25-Rek-371050:08 URINALYSIS, W/ MICRO (18066) Comments: PATIENT WAS FASTINGPERFORMED BY: [facility] benchee [facility] [id number] Microscopic Examination See below: (Normal) Comments: Microscopic was indicated and was performed. Nitrite, Urine Negative (Normal) Urobilinogen,Semi-Qn 0.2 mg/dL (Normal) Range: 0.2-1.0 Bilirubin Negative (Normal) Occult Blood Negative (Normal) Ketones Negative (Normal) Glucose Negative (Normal) Protein 2+ (Abnormal) WBC Esterase 1+ (Abnormal) Appearance Clear (Normal) Urine-Color Yellow (Normal) pH 5.5 (Normal) Range: 5.0-7.5 Specific [place] >=1.030 (Abnormal) Range: 1.005-1.030 22-Efn-867203:08 MICROALBUMIN: CREATININE RATIO Comments: PATIENT WAS FASTINGPERFORMED BY: [employer]70 [facility] [id number] (95058) AND (76688) Microalb/Creat Ratio 246.3 {mg/g_creat} (Abnormal) Range: 0.0-30.0 Microalbumin, Urine 433.7 ug/mL (Normal) Comments: Results confirmed ondilution. Creatinine, Urine 176.1 mg/dL (Normal) 71-Qcf-284952:08 METABOLIC PANEL, COMPREHENSIVE Comments: PATIENT WAS FASTINGPERFORMED BY: [facility] Yjvkci0543 [facility] [id number] (01020) ALT (SGPT) 26 [iU]/L (Normal) Range: 0-32 [...] Glucose, Serum 158 mg/dL (Abnormal) Range: 65-99 58-Rwm-283631:08 CBC W/AUTO DIFF WBC (26309) Comments: PATIENT WAS FASTINGPERFORMED BY: [facility]Co[facility]or[facility] Lung CenterHukyrh2102 [facility] [id number] Immature Grans (Abs) 0.0 {x10E3/uL} (Normal) Range: [...] (Normal) Range: 3.4-10.8 :31 HgA1C , Office (93383) HgA1C , Office 6.6 % (Normal) Range: 4.6 - 7.1 :31 Blood Glucose , Office (67777) Blood Glucose , Office 143 (Normal) :45 CBC W/Diff, Automated Comments: [facility] Ophgknbydb[address] [facility] [place], [place], [address] Absolute Lymph 1.46 {X10_3/ul} (Normal) Range: 0.83-4.51 [...] 4.2-5.4 WBC 12.9 K/mm3 (Abnormal) Range: 4.4-11.0 2-Rrx-528813:45 Comprehensive Metabolic Profil Comments: [facility] [address] [place], [address] GAP 8 (Normal) Range: 5-15 CO2 27.0 [...] 126 mg/dLsuggests DIABETES MELLITUS per A.D.A. criteria. 9-Zzd-614338:45 Prothrombin Time w/INR Comments: [facility] [address] [place], [place], [address] INR 0.9 (Normal) PROTIME 11.6 s (Abnormal) Range: 11.7-14.9 0-Iwd-615346:12 HgA1C , Office (73844) HgA1C , Office 6.5 % (Normal) Range: 4.6 - 7.1 9-Pys-613157:12 Blood Glucose , Office (18293) Blood Glucose , Office 122 (Normal) :39 Lipid Profile Comments: [facility] [address]qiq[address] [place], [place], [phone] VLDL 39 mg/dL (Normal) Range: 5-40 LDL [...] 200-240 mg/dL Borderline >240 mg/dL High Risk 58-Rck-78620:39 Methylmalonic Acid Bld Comments: [facility] (refer to report for specific site)refer to report for address and phone number METHYLM [phone] nmol/L (Normal) Range: 0-378 Comments: Performed at: [address] [id number] Director: Frantz Josue MD, Phone: [phone] 14-Eqc-06631:39 Vitamin B12 531 pg/mL (Normal) Comments: [facility] [address] [place], [place], [address] Range: 211-911 :39 Vitamin D,25 Hydroxy Comments: [facility] Naakegnkvk2195 [place], [phone] Vitamin D 25-OH 44.7 ng/mL (Normal) Comments: Vitamin D 25(OH) Status Range Deficiency <20 ng/mL (50nmol/L) Insuffciency 20 - 30 ng/mL (50 - 75 nmol/L) Sufficiency 30 - 100 ng/mL (75 - 250 nmol/L) Toxicity >100 ng/mL (>250 nmol/L) :29 Bedside Glucose Comments: [facility] LaboratoryPoint of Bhyd5471MICHELLE Guerra [address] BEDSIDE GLU 139 mg/dL (Abnormal) Range: 70-110 Comments: No Action RequiredMANAGEMENT OF PATIENT CARE PER NURSING PROTOCOL COLON BIOPSY (CHOOSE See Note (Normal) Comments: [facility] Hwhvpoxbbw1303 [place], [phone] :54 SITE) Comments: Patient: MARICRUZ GRIGSBY : 1940 (76/F) Acct Num: [id number] Phys: Constantine Saunders Unit Num: [id number] Loc: LABSPEC Specimen: [id number] Received: 11/05/16 - 1631 Spe c Type: [...] one cassette. / RY:rg 11/06/16 TC:1 CPT: 84930 x2 HEADER OPERATION: Colonoscopy with polypectomy PRE-OP DIAGNOSIS: Heme-positive stool / anemia TISSUE SUBMITTED: A - Transverse col on polyp, rule out adenoma, B - Right colon polyp biopsies, rule out adenoma MICROSCOPIC DESCRIPTION Slides are reviewed. MICROSCOPIC DIAGNOSIS A. Transverse colon polyp, polypectomy: Fragments of hyperplastic polyp. B. Right colon polyp, polypectomy: Fragments of tubular adenoma. SJ:edita 11/07/16 Signed Zane Earl 11/07/16 <signature on file> 72-Lry-335909:47 CBC W/Diff, Automated Comments: [facility] [address] [place], [place], [address] Absolute Lymph 1.88 {X10_3/ul} (Normal) Range: 0.83-4.51 [...] 4.2-5.4 WBC 8.8 K/mm3 (Normal) Range: 4.4-11.0 50-Ndn-787308:42 Comprehensive Metabolic Profil Comments: Order Date: 10/10/16Order Info: 0786-1 - *CMP Complete Metabolic PanelOrder Info: 13417-6 - *IBC Iron \E AND E\ Total Iron Binding CapacityOrder Info: 2276-4 - *FerritinComments: Reason:Order Date: 10/10/16Order Info: 78236-7 - *[place] Lamda Light ChainsComments: Reason:[facility] [address] [place], [address] GAP 9 (Normal) Range: 5-15 CO2 28.0 [...] <126 mg/dLsuggests IMPAIRED HOMEOSTASIS per A.D.A. criteria. 61-Uwa-510684:42 Ferritin Comments: Order Date: 10/10/16Order Info: 0786-1 - *CMP Complete Metabolic PanelOrder Info: 63852-7 - *IBC Iron \E AND E\ Total Iron Binding CapacityOrder Info: 2276-4 - *FerritinComments: Reason:Order Date: 10/10/16Order Info: 88453-1 - *[place] - [place] Lamda Light ChainsComments: Reason:[facility] [address] [place], [place], [address] FERRITIN 45 ng/mL (Normal) Range: 8-252 87-Lqj-391819:42 DEEPALI + Protein Elect, Serum Comments: Order Date: 10/10/16Order Info: 0282-1 - *IMEL DEEPALI + Prot Elec, Serum 1495Order Info: 82905-0 - *[place] Lamda Light ChainsOrder Date: 10/10/16Order Info: 0282-1 - *IMEL DEEPALI + Prot Elec, Serum 1495Order Info: 93631-2 - *[place] - [place] Lamda Light ChainsOrder Date: 10/10/16Order Info: 55229-3 - *[place] Lamda Light ChainsIs Patient Fasting? NComments: Reason:[facility] (refer to report for specific site)refer to report for address and phone number NOTE: Comment (Normal) Comments: Protein electrophoresis scan will follow via computer,mail, or corsets salesperson delivery. DEEPALI RESULT,S Comment (Normal) Comments: Immunofixation shows IgG monoclonal protein with lambdalight chain specificity. A/G RATIO 1.4 (Normal) Range: 0.7-1.7 GLOBULIN, TOTAL 2.8 g/dL (Normal) Range: 2.2-3.9 M-SPIKE 0.3 g/dL (Abnormal) GAMMA GLOBULIN 0.8 g/dL (Normal) Range: 0.4-1.8 BETA GLOBULIN 0.9 g/dL (Normal) Range: 0.7-1.3 EZFPS-9-RNEG 0.9 g/dL (Normal) Range: 0.4-1.0 AWFLS-9-PRVX 0.2 g/dL (Normal) Range: 0.0-0.4 ALBUMIN 3.7 g/dL (Normal) Range: 2.9-4.4 IMMUNOGL M 100 mg/dL (Normal) Range: 26-217 IMMUNO A 106 mg/dL (Normal) Range: 64-422 IMMUNO G 693 mg/dL (Abnormal) Range: 700-1600 PROTEIN,TOTAL 6.5 g/dL (Normal) Range: 6.0-8.5 91-Qpz-941784:42 Iron+Iron Binding Capacity Comments: Order Date: 10/10/16Order Info: 0786-1 - *CMP Complete Metabolic PanelOrder Info: 02953-4 - *IBC Iron \E AND E\ Total Iron Binding CapacityOrder Info: 2276-4 - *FerritinComments: Reason:Order Date: 10/10/16Order Info: 40763-8 - *[place] - [place] Lamda Light ChainsComments: Reason:[facility] [address] [place], [place], [phone] IRON SATURATION 15.9 % (Normal) Range: 15.0-55.0 IRON 49 ug/dL (Abnormal) Range: 50-170 TIBC 309 ug/dL (Normal) Range: 250-450 08-Lzq-870516:42 [place] Lambda Light Chains Comments: Order Date: 10/10/16Order Info: 0282-1 - *IMEL DEEPALI + Prot Elec, Serum 1495Order Info: 32446-6 - *[place] - [place] Lamda Light ChainsOrder Date: 10/10/16Order Info: 0282-1 - *IMEL DEEPALI + Prot Elec, Serum 1495Order Info: 34342-6 - *[place] - [place] Lamda Light ChainsOrder Date: 10/10/16Order Info: 41296-4 - *[place] Lamda Light ChainsIs Patient Fasting? NComments: Reason:[facility] (refer to report for specific site)refer to report for address and phone number KAPPA/LAMBDA % 0.98 (Normal) Range: 0.26-1.65 Comments: Performed at: [facility] [id number] Director: Constantine Christianson PhD, Phone: [phone] FR LAMBDA LT CH 19.06 mg/L (Normal) Range: 5.71-26.30 FR KAPPA LT CHN 18.62 mg/L (Normal) Range: 3.30-19.40 07-Foz-893536:06 VITAMIN B-12 (CYANOCOBALAMIN) Comments: PATIENT NOT FASTINGPERFORMED BY: [facility] Mytuly1913 [facility] [id number] (42836) Vitamin B12 709 pg/mL (Normal) Range: 211-946 37-Qlh-671275:45 Blood Glucose , Office (59627) Blood Glucose , Office 104 (Normal) 35-Psz-926060:45 HgA1C , Office (56469) HgA1C , Office 6.7 % (Normal) Range: 4.6 - 7.1 :54 CBC W/Diff, Automated Comments: [facility] [address] [place], [place], [address] Absolute Lymph 1.51 {X10_3/ul} (Normal) Range: 0.83-4.51 [...] 4.2-5.4 WBC 7.0 K/mm3 (Normal) Range: 4.4-11.0 14-Cos-28504:54 Comprehensive Metabolic Profil Comments: [facility] [address] [place], [address] GAP 8 (Normal) Range: 5-15 CO2 28.0 [...] per A.D.A. criteria. :54 Lipid Profile Comments: [facility] [address] [place], [place], [address] VLDL 38 mg/dL (Normal) Range: 5-40 LDL [...] High Risk :54 Microalb:Creat Ratio,Random UR Comments: [facility] Vpbxfrohuk8551 [facility] [address]. [place], [place], [address] MALB:CREAT 223.2 {mg/g_CRE} (Abnormal) MICROALBUMIN,UR 250.0 mg/L (Normal) UR CREAT 112.00 mg/dL (Normal) :54 Thyroid Stim Hormone (TSH) Comments: [facility] [address] [place], [place], [address] TSH 1.13 {uIU/mL} (Normal) Range: 0.358-3.74 :54 Urinalysis, Complete Comments: How was Urine Obtained? [facility] [address]ch[address] [place], [place], [address] MUCUS, URINE 0 SEEN {/hpf} (Normal) BACTERIA [...] (Normal) CLARITY Clear (Normal) COLOR Yellow (Normal) 20-Vcb-20956:54 Vitamin D,25 Hydroxy Comments: [facility] [address] [place], [address] Vitamin D 25-OH 31.6 ng/mL (Normal) Comments: Vitamin D 25(OH) Status Range Deficiency <20 ng/mL (50nmol/L) Insuffciency 20 - 30 ng/mL (50 - 75 nmol/L) Sufficiency 30 - 100 ng/mL (75 - 250 nmol/L) Toxicity >100 ng/mL (>250 nmol/L) 55-Xgg-316586:07 VITAMIN B-12 (CYANOCOBALAMIN) Comments: PATIENT NOT FASTINGPERFORMED BY: [employer] [place] [id number] (34854) Vitamin B12 1119 pg/mL (Abnormal) Range: 211-946 42-Mja-324061:23 Microscopic Examination Comments: PATIENT WAS FASTINGPERFORMED BY: [facility] [id number] Bacteria Few (Normal) Mucus Threads Present (Normal) Epithelial Cells (non renal) 0-10 {/hpf} (Normal) Range: 0 - 10 RBC 0-2 {/hpf} (Normal) Range: 0 - 2 WBC >30 {/hpf} (Abnormal) Range: 0 - 5 80-Gut-058763:23 VITAMIN B-12 (CYANOCOBALAMIN) Comments: PATIENT WAS FASTINGPERFORMED BY: [facility] TechnologyC[facility] [id number] (11996) Vitamin B12 >2000 pg/mL (Abnormal) Range: 211-946 :23 TSH (01029) Comments: PATIENT WAS FASTINGPERFORMED BY: [facility]6370 [facility] [id number] TSH 5.380 {uIU/mL} (Abnormal) Range: 0.450-4.500 :23 URINALYSIS, W/ MICRO (09098) Comments: PATIENT WAS FASTINGPERFORMED BY: [facility]6370 [facility] [id number] Microscopic Examination See below: (Normal) Comments: Microscopic was indicated and was performed. Nitrite, Urine Negative (Normal) Urobilinogen,Semi-Qn 0.2 mg/dL (Normal) Range: 0.2-1.0 Bilirubin Negative (Normal) Occult Blood Negative (Normal) Ketones Negative (Normal) Glucose Negative (Normal) Protein Trace (Normal) WBC Esterase 2+ (Abnormal) Appearance Clear (Normal) Urine-Color Yellow (Normal) pH 6.0 (Normal) Range: 5.0-7.5 Specific [place] 1.022 (Normal) Range: 1.005-1.030 :23 MICROALBUMIN: CREATININE RATIO Comments: PATIENT WAS FASTINGPERFORMED BY: [facility]6370 [facility] [id number] (42420) AND (51199) Microalb/Creat Ratio 24.2 {mg/g_creat} (Normal) Range: 0.0-30.0 Microalbumin, Urine 35.4 ug/mL (Normal) Creatinine, Urine 146.0 mg/dL (Normal) :23 METABOLIC PANEL, COMPREHENSIVE Comments: PATIENT WAS FASTINGPERFORMED BY: [facility]6370 [facility] [id number] (38777) ALT (SGPT) 25 [iU]/L (Normal) Range: 0-32 [...] Glucose, Serum 143 mg/dL (Abnormal) Range: 65-99 18-Gmo-878636:23 CBC W/AUTO DIFF WBC (82825) Comments: PATIENT WAS FASTINGPERFORMED BY: [facility]CoDeborah [facility] and Lung CenterPltejv4787 [facility] [id number] Immature Grans (Abs) 0.0 {x10E3/uL} (Normal) Range: [...] 3.77-5.28 WBC 7.4 {x10E3/uL} (Normal) Range: 3.4-10.8 14-Svp-585308:23 CALCIFIDIOL (28458) VIT D 25 Comments: PATIENT WAS FASTINGPERFORMED BY: [facility]6370 [facility] [id number] Vitamin D, 25-Hydroxy 28.9 ng/mL (Abnormal) Range: 30.0-100.0 Comments: Vitamin D deficiency has been defined by the [place] of[place] and an Endocrine Society practice guideline as alevel of serum 25-OH vitamin D less than 20 ng/mL (1,2).The Endocrine Society went on to further define vitamin Dinsufficiency as a level between 21 and 29 ng/mL (2).1. IOM ([place] of [employer]). 2010. Dietary reference intakes for calcium and D. [place]: The National Academies Press.2. Rachel CAMACHO, Yael MARLEY, Dunia HERRERA, et al. Evaluation, treatment, and prevention of vitamin D deficiency: an Endocrine Society clinical practice guideline. JCEM. 2010; 96(7):1911-30. :22 HgA1C , Office (47635) HgA1C , Office 7.1 % (Normal) Range: 4.6 - 7.1 :22 Blood Glucose , Office (54342) Blood Glucose , Office 171 (Normal) 6-Uix-509347:10 Basic Metabolic Profile (BMP) Comments: Serial Specimen #1, #2 or #3? 1'TROP' Serial specimen #1, #2, #3, or #4: 1[facility] [address] [place], [place], [address] GAP 8 (Normal) Range: 5-15 CO2 28.0 [...] 126 mg/dLsuggests DIABETES MELLITUS per A.D.A. criteria. 2-Cls-862842:10 CBC W/Diff, Automated Comments: [facility] [address] [place], [place], [address] Absolute Lymph 1.32 {X10_3/ul} (Normal) Range: 0.83-4.51 [...] 4.2-5.4 WBC 8.5 K/mm3 (Normal) Range: 4.4-11.0 0-Sob-980745:10 CK-MB Quantitative and Index Comments: Serial Specimen #1, #2 or #3? 1'TROP' Serial specimen #1, #2, #3, or #4: 1[facility] [address] [place], [address] CKRI 1.3 % (Normal) Range: 0.0-1.4 Comments: RELATIVE INDEX >1.5% IS PRESUMPTIVELY POSITIVE CPKMB 4.3 ng/mL (Normal) Range: 0.0-5.0 Comments: CK-MB and RI Interpretation MB Relative Index Non-AMI <or= 5 NA Indeterminate > 5 <or= 4 AMI > 5 > 4 CPK TOTAL 333 U/L (Abnormal) Range: 26-192 1-Osc-629339:10 Troponin-I Comments: Serial Specimen #1, #2 or #3? 1'TROP' Serial specimen #1, #2, #3, or #4: 1[facility] [address] [place], [place], [address] TROPONIN-I < 0.02 ng/mL (Normal) Comments: TROPONIN-I EXPECTED VALUES <0.05 NEGATIVE 0.06 - 0.59 AT RISK OF CO > OR = 0.60 SUGGEST CO 5-Yxf-205230:55 Blood Glucose , Office (80914) Blood Glucose , Office 117 (Normal) :36 HgA1C , Office (76915) HgA1C , Office 7.1 % (Normal) Range: 4.6 - 7.1 :52 CBC W/Diff, Automated Comments: [facility] WITH WBC [facility] [address]zeoy[address] [place], [place], [address] Absolute Lymph 1.67 {X10_3/ul} (Normal) Range: 0.83-4.51 [...] Range: 4.4-11.0 30-Nov-20156:52 Comprehensive Metabolic Profil Comments: [facility] [address]ams[address] [place], [place], [address] GAP 10 (Normal) Range: 5-15 CO2 26.0 [...] specificity.Bence Jorge Protein positive; lambda type.Performed at: [facility] [place] [address] 12[address]Lab Dire ctor: Constantine Christianson PhD, Phone: [phone] Immunofixation, Serum Comments: [facility] (refer to report for specific site)refer to report for address and phone number DEEPALI RESULT,S Comment (Normal) Comments: Immunofixation shows IgG monoclonal protein with lambdalight chain specificity. IMMUNOGL M 112 mg/dL (Normal) Range: 26-217 IMMUNO A 110 mg/dL (Normal) Range: 64-422 IMMUNO G 783 mg/dL (Normal) Range: 700-1600 :52 [place] Lambda Light Chains Comments: [facility] (refer to report for specific site)refer to report for address and phone number KAPPA/LAMBDA % 1.03 (Normal) Range: 0.26-1.65 FR LAMBDA LT CH 21.11 mg/L (Normal) Range: 5.71-26.30 FR KAPPA LT CHN 21.66 mg/L (Abnormal) Range: 3.30-19.40 :52 Lipid Profile Comments: [facility] A[address] [place], [place], [address] ; review OV 12/02/15 VLDL 35 mg/dL [...] High Risk :52 Microalb:Creat Ratio,Random UR Comments: [facility] [address]sb[address] [place], [address] MALB:CREAT 44.5 {mg/g_CRE} (Abnormal) MICROALBUMIN,UR 68.1 mg/L (Normal) UR CREAT 153.00 mg/dL (Normal) :52 Vitamin B12 268 pg/mL (Normal) Comments: [facility] [address] [place], [address] Range: 211-911 Comments: ADDENDA: normal and has f/u this saturday:52 Vitamin D,25 Hydroxy Comments: [facility] [address]fr[address]ha[address] [place], [address] Vitamin D 25-OH 48.8 ng/mL (Normal) Comments: Vitamin D 25(OH) Status Range Deficiency <20 ng/mL (50nmol/L) Insuffciency 20 - 30 ng/mL (50 - 75 nmol/L) Sufficiency 30 - 100 ng/mL (75 - 250 nmol/L) Toxicity >100 ng/mL (>250 nmol/L) :15 Basic Metabolic Profile (BMP) Comments: [facility] Ebvx[address]oc[address] [place], [address] GAP 10 (Normal) Range: 5-15 CO2 25.0 [...] 200 mg/dLsuggests DIABETES MELLITUS per A.D.A. criteria. 44-Dlb-34587:15 CBC W/Diff, Automated Comments: [facility] [address]just[address] [place], [place], [address] RED CELL MORPH NORM C+C {NORMAL} (Normal) [...] 4.2-5.4 WBC 11.4 K/mm3 (Abnormal) Range: 4.4-11.0 78-Asp-825890:08 HgA1C , Office (58670) HgA1C , Office 6.8 % (Normal) Range: 4.6 - 7.1 6-Ija-442774:30 FERRITIN (47476) Comments: PATIENT WAS FASTINGPERFORMED BY: [facility] Skyyww8980 [facility] [id number] Ferritin, Serum 121 ng/mL (Normal) Range: 15-150 9-Tjw-419633:30 IRON (97391) Comments: PATIENT WAS FASTINGPERFORMED BY: [facility] Svoehc7311 [facility] [id number] Iron, Serum 56 ug/dL (Normal) Range: 35-155 [...] - 159 >60 years 27 - 139 6-Mid-753381:30 TSH (75564) Comments: PATIENT WAS FASTINGPERFORMED BY: [facility] Hvoosp9807 [facility] [id number] TSH 1.660 {uIU/mL} (Normal) Range: 0.450-4.500 0-Lyl-642757:30 LIPID PANEL (08405) Comments: PATIENT WAS FASTINGPERFORMED BY: [facility] Iyzjnk4152 [facility] [id number] LDL/HDL Ratio 2.1 {ratio_units} (Normal) Range: 0.0-3.2 [...] Cholesterol, Total 190 mg/dL (Normal) Range: 100-199 6-Yps-076956:30 METABOLIC PANEL, COMPREHENSIVE Comments: PATIENT WAS FASTINGPERFORMED BY: LabCoDeborah [facility] and Lung CenterWvmgmh7447 [facility] [id number] (16485) ALT (SGPT) 24 [iU]/L (Normal) Range: 0-32 [...] Glucose, Serum 122 mg/dL (Abnormal) Range: 65-99 2-Fdh-990970:30 Vitamin D Hydroxy (25774) Comments: PATIENT WAS FASTINGPERFORMED BY: [facility]6370 [facility] [id number] Vitamin D, 25-Hydroxy 25.3 ng/mL (Abnormal) Range: 30.0-100.0 Comments: Vitamin D deficiency has been defined by the [place] of[place] and an Endocrine Society practice guideline as alevel of serum 25-OH vitamin D less than 20 ng/mL (1,2).The Endocrine Society went on to further define vitamin Dinsufficiency as a level between 21 and 29 ng/mL (2).1. IOM ([place] of [employer]). 2010. Dietary reference intakes for calcium and D. [place]: The National Academies Press.2. Rachel MF, Yael MARLEY, Dunia HERRERA, et al. Evaluation, treatment, and prevention of vitamin D deficiency: an Endocrine Society clinical practice guideline. JCEM. 2010; 96(7):1911-30. 8-Fuj-765072:30 CBC W/AUTO DIFF WBC Comments: PATIENT WAS FASTINGPERFORMED BY: [facility] Bcctza9791 [facility] [id number] Information: [id number] (53307) Immature Grans (Abs) 0.0 {x10E3/uL} (Normal) Range: [...] 3.77-5.28 WBC 8.2 {x10E3/uL} (Normal) Range: 3.4-10.8 7-Wub-667562:30 serum free light chains Comments: PATIENT WAS FASTINGPERFORMED BY: [employer]um[facility] [id number] (90048) [place]/Lambda Ratio,S 0.81 (Normal) Range: 0.26-1.65 Free Lambda Lt Chains,S 17.93 mg/L (Normal) Range: 5.71-26.30 Free [place] Lt Chains,S 14.55 mg/L (Normal) Range: 3.30-19.40 2-Dlp-162824:08 urine immunofixation (90257) Comments: PATIENT NOT FASTINGPERFORMED BY: [employer] [facility] [id number] Information: SRC:UR [id number] DEEPALI Interpretation:U IFEGL (Normal) Comments: 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 5-Kns-114366:30 serum immunofixation (38816) Comments: PATIENT WAS FASTINGPERFORMED BY: [id number] [facility] [id number] Immunoglobulin M, Qn, Serum 99 mg/dL (Normal) Range: 40-230 Immunoglobulin A, Qn, Serum 107 mg/dL (Normal) Range: 91-414 Immunoglobulin G, Qn, Serum 814 mg/dL (Normal) Range: 700-1600 Immunofixation Result, Serum IFEGL (Normal) Comments: Immunofixation shows IgG monoclonal protein with lambda light chainspecificity. :49 CBC W/Diff, Automated Comments: [facility] [id number] [place], [address] Absolute Lymph 0.99 {X10_3/ul} (Normal) [...] K/mm3 (Normal) Range: 4.4-11.0 :49 Ferritin Comments: [facility] [id number] [place], [id number] FERRITIN 80 ng/mL (Normal) Range: 8-252 :49 Hemoglobin A1c Comments: [facility] [address] [place], [address] HGB A1C 6.4 % (Abnormal) Range: 4.2-6.3 :49 Iron Comments: [facility] [address] [place], [address] IRON 43 ug/dL (Abnormal) Range: 50-170 :49 Iron Binding Capacity,Total Comments: [facility] [address] [place], [address] TIBC 336 ug/dL (Normal) Range: 250-450 :49 Protein Electro.Ur-Random Comments: [facility] (refer to report for specific site)refer to report for address and phone number M-SPIKE,U Test not performed (Normal) GAMMA GLOB,U Test not performed (Normal) Comments: Test not performed BETA GLOB,U Test not performed (Normal) Comments: Test not performed YTAEZ-0-FPUF,U Test not performed (Normal) Comments: Test not performed XGCKX-3-LHQG,U Test not performed (Normal) Comments: Test not [...] electrophoresis scan will follow via computer,mail, or corsets salesperson delivery. NOTE: Comment (Normal) Comments: The SPE [...] electrophoresis scan will follow via computer,mail, or corsets salesperson delivery. A/G RATIO 1.5 (Normal) Range: 0.7-2.0 [...] 6.0-8.5 :49 Thyroid Stim Hormone (TSH) Comments: [facility] [address] [place], [address] TSH 4.43 {uIU/mL} (Abnormal) Range: 0.358-3.74 :49 Vitamin B12 431 pg/mL (Normal) Comments: [facility] [address] [place], [address] Range: 211-911 Comments: ADDENDA: has apt today :58 AFP, Tumor Marker Comments: Is [facility] ? [facility] (refer to report for specific site)refer to report for address and phone number AFP TUMOR 2253 4.9 ng/mL (Normal) Range: 0.0-8.3 Comments: [facility] ECLIA methodologyPerformed at: - [facility] [address] [id number] Director: Constantine Christianson PhD, Phone: [phone] :[phone] CBC W/Diff, Automated Comments: [facility] [address] [place], [address] Absolute Lymph 1.46 {X10_3/ul} (Normal) [...] 4.2-5.4 WBC 7.3 K/mm3 (Normal) Range: 4.4-11.0 26-Sjn-66851:58 Comprehensive Metabolic Profil Comments: [facility] [address] [place], [place], [id number] GAP 7 (Normal) Range: 5-15 CO2 28.0 [...] per A.D.A. criteria. :58 Lipid Profile Comments: [facility] [address] [place], [place], [id number] ; non-emergent and has apth this week [...] :58 Vitamin B12 278 pg/mL (Normal) Comments: [facility] [address] [place], [address] Range: 211-911 :58 Vitamin D,25 Hydroxy Comments: [facility] [address] [place], [id number] Vitamin D 25-OH 38.4 ng/mL (Normal) Comments: Vitamin D 25(OH) Status Range Deficiency <20 ng/mL (50nmol/L) Insuffciency 20 - 30 ng/mL (50 - 75 nmol/L) Sufficiency 30 - 100 ng/mL (75 - 250 nmol/L) Toxicity >100 ng/mL (>250 nmol/L) 12-Gqm-918285:07 HgA1C , Office (60032) HgA1C , Office 6.5 % (Normal) Range: 4.6 - 7.1 :43 AFP, Tumor Marker Comments: Is Patient ? NTest performed at:[facility] Ufqiyhccce[address] [facility] [place] [address] AFP TUMOR 2253 4.8 ng/mL (Normal) Range: 0.0-8.3 Comments: [facility] ECLIA methodologyPerformed at: [employer] [facility] [address] [id number] Director: Arnold Jefferson PhD, Phone: [phone] :[phone] CBC W/Diff, Automated Comments: Test performed at:[facility] [address] [place] [address] Absolute Lymph 1.16 {X10_3/ul} (Normal) [...] :43 Comprehensive Metabolic Profil Comments: Test performed at:[facility] Z[address]apvowu08[address] [facility] [place] [address] GAP 11 (Normal) Range: 5-15 [...] criteria. :43 Lipid Profile Comments: Test performed at:[facility] Jjtgljucya4139 [facility] [place] [address] VLDL 61 mg/dL (Abnormal) Range: 5-40 [...] :43 Microalb:Creat Ratio,Random UR Comments: Test performed at:[facility] [address] [place] [address] MALB:CREAT 15.9 {mg/g_CRE} (Normal) MICROALBUMIN,UR 19.2 mg/L (Normal) UR CREAT 120.3 mg/dL (Normal) 17-Owr-26590:43 Thyroid Stim Hormone (TSH) Comments: Test performed at:[facility] [address] [place] [address] TSH 2.19 {uIU/mL} (Normal) Range: 0.358-3.74 :43 Vitamin B12 261 pg/mL (Normal) Comments: Test performed at:[facility] [address] [place] [address] Range: 211-911 Comments: ADDENDA: nl and pt has apt tomorrow :43 Vitamin D,25 Hydroxy Comments: Test performed at:[facility] [address] [place] [address] Vitamin D 25-OH 30.9 ng/mL (Normal) Comments: Vitamin D 25(OH) Status Range Deficiency <20 ng/mL (50nmol/L) Insuffciency 20 - 30 ng/mL (50 - 75 nmol/L) Sufficiency 30 - 100 ng/mL (75 - 250 nmol/L) Toxicity >100 ng/mL (>250 nmol/L) :38 HgA1C , Office (76984) HgA1C , Office 6.7 % (Normal) Range: 4.6 - 7.1 :56 AFP, Tumor Marker Comments: Is Patient ? NTest performed at:[facility] Fggtbniwer0514 [facility] [place], [place] [id number] ; appt 02/15 AFP TUMOR 2253 4.8 ng/mL (Normal) Range: 0.0-8.3 Comments: [facility] ECLIA methodologyPerformed at: [employer] [facility] [address] [id number] Director: Arnold Jefferson PhD, Phone: [phone] :56 CBC W/Diff, Automated Comments: Test performed at:[facility] Mmimuwozmx8206 [facility] [place], [place] [address] Absolute Lymph 2.37 {X10_3/ul} (Normal) Range: 0.83-4.51 [...] 4.4-11.0 :56 Lipid Profile Comments: Test performed at:[facility] [address] [place] [address] VLDL 26 mg/dL (Normal) Range: [...] :56 Partial Thromboplast Time Comments: Test performed at:[facility] [address] [place] [address] PTT 30.1 s (Normal) Range: 24.1-36.2 :56 Prothrombin Time w/INR Comments: Test performed at:[facility] [address] [place] [address] INR 1.0 (Normal) PROTIME 12.8 s (Normal) Range: 11.7-14.9 :56 Thyroid Stim Hormone (TSH) Comments: Test performed at:[facility] [address] [place] [address] TSH 5.17 {uIU/mL} (Abnormal) Range: 0.358-3.74 :56 Vitamin B12 293 pg/mL (Normal) Comments: Test performed at:[facility] [address] [place] [address] Range: 211-911 25-Rbi-22255:56 Vitamin D,25 Hydroxy Comments: Test performed at:[facility] [address] [place] [id number] Vitamin D 25-OH 32.0 ng/mL (Normal) Comments: Vitamin D 25(OH) Status Range Deficiency <20 ng/mL (50nmol/L) Insuffciency 20 - 30 ng/mL (50 - 75 nmol/L) Sufficiency 30 - 100 ng/mL (75 - 250 nmol/L) Toxicity >100 ng/mL (>250 nmol/L) 35-Lag-418191:07 HgA1C , Office (07450) HgA1C , Office 6.3 % (Normal) Range: 4.6 - 7.1 :33 CBC W/Diff, Automated Comments: Test performed at:[facility] [address] [place], [place] [address] ; non- emergent till apt Absolute Lymph [...] :33 Comprehensive Metabolic Profil Comments: Test performed at:[facility] Owygrntoqc6884 [facility] [place] [address] GAP 4 (Abnormal) Range: 5-15 [...] criteria. :33 Lipid Profile Comments: Test performed at:[facility] Jewppmbqfz3922 [facility] [place], [place] [address] VLDL 29 mg/dL (Normal) Range: 5-40 LDL [...] B12 394 pg/mL (Normal) Comments: Test performed at:[facility] [address] [place] [address] Range: 211-911 :33 Vitamin D,25 Hydroxy Comments: Test performed at:[facility] [address] [place] [address] Vitamin D 25-OH 39.6 ng/mL (Normal) Comments: Vitamin D 25(OH) Status Range Deficiency <20 ng/mL (50nmol/L) Insuffciency 20 - 30 ng/mL (50 - 75 nmol/L) Sufficiency 30 - 100 ng/mL (75 - 250 nmol/L) Toxicity >100 ng/mL (>250 nmol/L) 21-Pnm-089268:10 HgA1C , Office (62330) HgA1C , Office 6.4 % (Normal) Range: [...] CHOL 167 mg/dL (Normal) Comments: <200 mg/dL Kaieluert553-578 mg/dL Borderline>240 mg/dL High Risk TRIG 200 mg/dL (Abnormal) Range: 0-199 Comments: Serum Triglycerides Reference IntervalNormal <150 mg/dLBorderline high 150 - 199 mg/dLHigh 200 - 499 mg/ dLVery High > or = 500 mg/dL :42 TIBC 275 ug/dL (Normal) Range: 250-450 :42 TSH 2.12 {uIU/mL} (Normal) Range: 0.358-3.74 :10 FERRITIN (89799) Comments: PATIENT NOT FASTINGPERFORMED BY: EverybodyCarEastern New Mexico Medical CenterGswznf5941 [facility] [id number] Ferritin, Serum 133 ng/mL (Normal) Range: 15-150 :10 IRON BINDING CAPACITY Comments: PATIENT NOT FASTINGPERFORMED BY: HomeWellnessDeborah [facility] and Lung CenterWixiov5024 [facility] [id number] Information: [id number] (TIBC) (25561) Iron Saturation 20 % (Normal) Range: 15-55 Iron, Serum 62 ug/dL (Normal) Range: 35-155 UIBC 241 ug/dL (Normal) Range: 150-375 Iron Bind.Cap.(TIBC) 303 ug/dL (Normal) Range: 250-450 93-Lau-980534:10 VITAMIN B-12 (CYANOCOBALAMIN) Comments: PATIENT NOT FASTINGPERFORMED BY: [facility] [facility]Core[facility]6370 [facility] [id number] (59463) Vitamin B12 421 pg/mL (Normal) Range: 211-946 36-Eiv-992279:10 TSH (00069) Comments: PATIENT NOT FASTINGPERFORMED BY: [facility]6370 [facility] [id number] TSH 1.150 {uIU/mL} (Normal) Range: 0.450-4.500 97-Mbp-408845:37 HgA1C , Office (32782) HgA1C , Office 6.1 % (Normal) Range: 4.6 - 7.1 0-Ani-397057:10 CBC with manual diff Comments: PATIENT WAS FASTINGPERFORMED BY: Intrexon CorporationCore[facility]6370 [facility] [id number] Information: [id number] (40459) Immature Grans (Abs) 0.0 {x10E3/uL} (Normal) Range: [...] 3.77-5.28 WBC 8.2 {x10E3/uL} (Normal) Range: 3.4-10.8 8-Aqr-063854:10 Metabolic Panel, Comprehensive Comments: PATIENT WAS FASTINGPERFORMED BY: LabCoDeborah [facility] and Lung CenterHtbejf9847 [facility] [id number] (77599) ALT (SGPT) 11 [iU]/L (Normal) Range: 0-32 [...] Glucose, Serum 129 mg/dL (Abnormal) Range: 65-99 2-Tdc-293256:10 Lipid Panel (32908) Comments: PATIENT WAS FASTINGPERFORMED BY: [employer] Zhvrqz1144 [facility] [id number] LDL/HDL Ratio 1.4 {ratio_units} (Normal) Range: 0.0-3.2 [...] METABOLIC PANEL, Comments: PATIENT NOT FASTINGPERFORMED BY: [employer] Xykytl7206 [facility] [id number] Information: [id number] COMPREHENSIVE (20290) ALT (SGPT) 15 [iU]/L (Normal) Range: 0-32 [...] 133 mg/dL (Abnormal) Range: 65-99 :14 TSH (49451) Comments: PATIENT NOT FASTINGPERFORMED BY: LabCoDeborah [facility] and Lung CenterAmromc3830 [facility] [id number] TSH 0.182 {uIU/mL} (Abnormal) Range: 0.450-4.500 :40 [...] CHOL 99 mg/dL (Normal) Comments: <200 mg/dL Twcuuwool826-920 mg/dL Borderline>240 mg/dL High Risk :40 MIACRE [...] CHOL 148 mg/dL (Normal) Comments: <200 mg/dL Gyffmfpap257-709 mg/dL Borderline>240 mg/dL High Risk HDL 46 mg/dL (Normal) Comments: Reference RangeHDL <40 mg/dL Low HDL CholesterolHDL >or= 60 mg/dL High HDL Cholesterol TRIG 206 mg/dL (Abnormal) Range: 0-199 Comments: Serum Triglycerides Reference IntervalNormal <150 mg/dLBorderline high 150 - 199 mg/dLHigh 200 - 499 mg/ dLVery High > or = 500 mg/dL 5-Dec-89017:36 MIACRE tMICROCREAT 51.8 {mg/g_CRE} (Abnormal) MIALB 125.0 mg/L (Normal) CREU 241.1 mg/dL (Normal) :36 VITD 46.9 mg/mL (Normal) Comments: Vitamin D 25(OH) Status RangeDeficiency <20 ng/mL (50nmol/L)Insuffciency 20 - 30 ng/mL (50 - 75 nmol/L)Sufficiency 30 - 100 ng/mL (75 - 250 nmol/L)Toxicity >100 ng/mL (>250 nmol/L) 42-Vnl-392800:27 HgA1C , Office (95065) HgA1C , Office 6.7 % (Normal) Range: 4.6 - 7.1 :17 METABOLIC PANEL, COMPREHENSIVE Comments: PATIENT WAS FASTINGPERFORMED BY: LabCoDeborah [facility] and Lung CenterCguwts5378 [facility] [id number] (94280) ALT (SGPT) 16 [iU]/L (Normal) Range: 0-32 [...] mg/dL (Abnormal) Range: 65-99 :17 LIPID PANEL (97307) Comments: PATIENT WAS FASTINGPERFORMED BY: [employer]70 [facility] [id number] LDL/HDL Ratio 2.0 {ratio_units} (Normal) Range: 0.0-3.2 [...] MANUAL DIFF Comments: PATIENT WAS FASTINGPERFORMED BY: [employer]6370 [facility] [id number] Information: [id number] (69037) Immature Grans (Abs) 0.0 {x10E3/uL} (Normal) Range: [...] B-12 (CYANOCOBALAMIN) Comments: PATIENT WAS FASTINGPERFORMED BY: [employer]70 [facility] [id number] (80388) Vitamin B12 696 pg/mL (Normal) Range: 211-946 :17 Vitamin D Hydroxy (40854) Comments: PATIENT WAS FASTINGPERFORMED BY: IPLocks6370 [facility] [id number] Vitamin D, 25-Hydroxy 29.3 ng/mL (Abnormal) Range: 30.0-100.0 Comments: Vitamin D deficiency has been defined by the [place] ofMedicine and an Endocrine Society practice guideline as alevel of serum 25-OH vitamin D less than 20 ng/mL (1,2).The Endocrine Society went on to further define vitamin Dinsufficiency as a level between 21 and 29 ng/mL (2).1. IOM ([place] of Medicine). 2010. Dietary reference intakes for calcium and D. [place]: The National Academies Press.2. Rachel MF, Yael NC, Dunia HERRERA, et al. Evaluation, treatment, and prevention of vitamin D deficiency: an Endocrine Society clinical practice guideline. JCEM. 2010; 96(7):1911-30. 17-Qrh-986823:29 HgA1C , Office (17726) HgA1C , Office 7.0 % (Normal) Range: 4.6 - 7.1 2-Zuc-111553:14 B12 794 pg/mL (Normal) Range: 211-911 Comments: Effective 201227-Dec-20123-Rvh-714463:14 VITD 37.5 ng/mL (Normal) Comments: Vitamin D 25(OH) Status RangeDeficiency <20 ng/mL (50nmol/L)Insufficiency 20 - 30 ng/mL (50 - 75 nmol/L)Sufficiency 30 - 100 ng/mL (75 - 250 nm ol/L)Toxicity >100 ng/mL (250 nmol/L)Effective 201201-Dec-20127-Ozr-468250:13 CHEST PA AND LATERAL Radiology Report See [...] Tate D.O.December 01, 2012 at 12:40:54 PM [id number] Signed DS/DS If you are the referring physician and would like to consult with theradiologist who provided this i nterpretation, please contact Eulalio Tate D.O. at [phone]. If this radiologist is unavailable, you will bedirected to another radiologist to assist. If you are a patient with a question regarding t his report, pleasecontactyour referring physician directly. Professional Interpretation Provided By: [employer], Phone , These documents contain legally protected [...] 12/01/12 1244 Sign by: Mack Peterson DO 54-Ymy-067370:20 Upper Respiratory Culture Comments: PATIENT NOT FASTINGPERFORMED BY: [facility]6370 [facility] [id number] Information: SRC: THROAT Result 1 RRF (Normal) Comments: Routine respiratory alton Upper Respiratory Culture Final report (Normal) 05-Jef-133591:06 Rapid Strep Test, Office (37529) Rapid Strep Test, Office Negative (Normal) 20-Amw-443139:32 BILAT SCRN DIGITAL & CAD Radiology Report [...] Wayne M.D.November 18, 2012 at 12:51:57 PM [id number] Signed GP/GP If you are the referring physician and would like to consult with theradiologist who provid ed this interpretation, please contact Lee Claudio at [phone]. If this radiologist is unavailable, youwill be directed to another radiologist to assist. If you are a patient with a ques tion regarding this report, pleasecontactyour referring physician directly. Professional Interpretation Provided By: [employer], Phone , These documents contain legally pr [...] 11/18/12 1254 Sign by: Teo Wayne MD 3-Nbj-742283:24 URINE RANI CULTURE-IDENTIFICATN Comments: PATIENT NOT FASTINGPERFORMED BY: [facility] Ixhbua2996 [facility] [id number] Information: [id number] (97129) Result 1 MUG (Normal) Comments: Mixed urogenital flora10,000-25,000 colony forming units per mL Urine Final report (Normal) Culture,Comprehensive 51-Uwf-312443:50 METABOLIC PANEL, Comments: PATIENT NOT FASTINGPERFORMED BY: [facility]WellnessDeborah [facility] and Lung CenterMdatge0885 [facility] [id number] Information: ADD [id number] AND DRAW FEE 99 7960 COMPREHENSIVE (74393) ALT (SGPT) 14 [iU]/L (Normal) Range: 0-32 [...] Glucose, Serum 109 mg/dL (Abnormal) Range: 65-99 6-Kre-182825:42 HgA1C , Office (70353) HgA1C , Office 6.3 % (Normal) Range: 4.6 - 7.1 :04 Microscopic Examination Comments: PATIENT NOT FASTINGPERFORMED BY: [facility] Uvmqjd0408 [facility] [place] [id number] Bacteria Few (Normal) Mucus Threads Present (Normal) Cast Type Hyaline casts (Normal) Casts Present {/lpf} (Abnormal) Epithelial Cells (non renal) 0-10 {/hpf} (Normal) Range: 0 - 10 RBC 0-3 {/hpf} (Normal) Range: 0 - 3 WBC 6-10 {/hpf} (Abnormal) Range: 0 - 5 :04 VITAMIN B-12 (CYANOCOBALAMIN) Comments: PATIENT NOT FASTINGPERFORMED BY: [facility] Zsywgs[address] [facility] [id number] (75388) Vitamin B12 1228 pg/mL (Abnormal) Range: 211-946 :04 Vitamin D Hydroxy (67590) Comments: PATIENT NOT FASTINGPERFORMED BY: [facility] Ajrhpp[address] [facility] [place] [id number] Vitamin D, 25-Hydroxy 21.9 ng/mL (Abnormal) Range: 30.0-100.0 Comments: Vitamin D deficiency has been defined by the [place] ofMedicine and an Endocrine Society practice guideline as alevel of serum 25-OH vitamin D less than 20 ng/mL (1,2).The Endocrine Society went on to further define vitamin Dinsufficiency as a level between 21 and 29 ng/mL (2).1. IOM ([place] of Medicine). 2010. Dietary reference intakes for calcium and D. [place]: The National Academies Press.2. Rachel MF, Yael NC, Dunia HERRERA, et al. Evaluation, treatment, and prevention of vitamin D deficiency: an Endocrine Society clinical practice guideline. JCEM. 2010; 96(7):1911-30. :04 URINALYSIS, W/ MICRO (66968) Comments: PATIENT NOT FASTINGPERFORMED BY: [facility] Csgjbn2068 [address] [facility]in [place] [id number] Microscopic Examination See below: (Normal) Nitrite, Urine Negative (Normal) Bilirubin Negative (Normal) Urobilinogen,Semi-Qn 0.2 mg/dL (Normal) Range: 0.0-1.9 Occult Blood Negative (Normal) Ketones Negative (Normal) Glucose Negative (Normal) Protein Negative (Normal) WBC Esterase 1+ (Abnormal) Appearance Clear (Normal) Urine-Color Yellow (Normal) pH 5.5 (Normal) Range: 5.0-7.5 Specific [place] 1.024 (Normal) Range: 1.005-1.030 52-Iwu-30546:04 CBC WITH MANUAL DIFF Comments: PATIENT NOT FASTINGPERFORMED BY: [facility] Dqivxr8551 [facility] [id number] Information: [id number] (08614) Immature Grans (Abs) 0.0 {x10E3/uL} (Normal) Range: [...] PANEL, COMPREHENSIVE Comments: PATIENT NOT FASTINGPERFORMED BY: [employer]70 WallerPWC Pure Water CorporationR[facility] [id number] (88578) ALT (SGPT) 13 [iU]/L (Normal) Range: 0-32 [...] mg/dL (Abnormal) Range: 65-99 :04 LIPID PANEL (82489) Comments: PATIENT NOT FASTINGPERFORMED BY: [employer]70 WallerPWC Pure Water CorporationRuther[facility] [id number] LDL Cholesterol Calc 103 mg/dL (Abnormal) Range: [...] pg/mL (Normal) Range: 211-946 Comments: Performed at: [facility] LabCo[address] [id number] Director: Arnold Jefferson PhD, Phone: [phone] :[phone] CMP GAP 9 (Normal) Range: 5-15 [...] 250 nmol/L) Toxicity >100 ng/mL (250 nmol/L)Effective 201215-Aug-201229-Plo-632938:20 Metabolic Panel, Basic Comments: PATIENT NOT FASTINGPERFORMED BY: LabCoDeborah [facility] and Lung CenterLjffdw6517 [facility] [id number] Information: [id number] (98530) Calcium, Serum 10.2 mg/dL (Normal) Range: 8.6-10.2 [...] Glucose, Serum 99 mg/dL (Normal) Range: 65-99 2-Xtf-169668:24 Microscopic Examination Comments: PATIENT NOT FASTINGPERFORMED BY: CB [facility] Qwliuo8836 [address]er RoadDublin [place] [id number] Bacteria Few (Normal) Mucus Threads Present (Normal) Epithelial Cells (non renal) 0-10 {/hpf} (Normal) Range: 0 - 10 RBC 0-3 {/hpf} (Normal) Range: 0 - 3 WBC 6-10 {/hpf} (Abnormal) Range: 0 - 5 :24 Vitamin D Hydroxy (31092) Comments: PATIENT NOT FASTINGPERFORMED BY: CB [facility] Cuhbij3229 Waller RoadDublin [place] [id number] Vitamin D, 25-Hydroxy 21.7 ng/mL (Abnormal) Range: 30.0-100.0 Comments: Vitamin D deficiency has been defined by the [place] ofUniversity [facility] Medical Centercine and an Endocrine Society practice guideline as alevel of serum 25-OH vitamin D less than 20 ng/mL (1,2).The Endocrine Society went on to further define vitamin Dinsufficiency as a level between 21 and 29 ng/mL (2).1. IOM ([place] of Medicine). 2010. Dietary reference intakes for calcium and D. [place]: The National Academies Press.2. Rachel MF, Yael MARLEY, Dunia HERRERA, et al. Evaluation, treatment, and prevention of vitamin D deficiency: an Endocrine Society clinical practice guideline. JCEM. 2010; 96(7):1911-30. 9-Erx-077089:24 VITAMIN B-12 (CYANOCOBALAMIN) Comments: PATIENT NOT FASTINGPERFORMED BY: CB [facility] Ajmtxk9511 Waller RoadDublin [place] [id number] (93274) Vitamin B12 431 pg/mL (Normal) Range: 211-946 9-Hrw-468452:24 URINALYSIS, W/ MICRO (67662) Comments: PATIENT NOT FASTINGPERFORMED BY: CB [facility] Uqsvwb3458 Waller RoadDublin [place] [id number] Microscopic Examination MICRON (Normal) Comments: Microscopic follows if indicated. Microscopic Examination See below: (Normal) Nitrite, Urine Negative (Normal) Urobilinogen,Semi-Qn 0.2 mg/dL (Normal) Range: 0.0-1.9 Bilirubin Negative (Normal) Ketones Negative (Normal) Occult Blood Negative (Normal) Glucose Negative (Normal) Protein Negative (Normal) WBC Esterase Negative (Normal) Appearance Clear (Normal) pH 6.5 (Normal) Range: 5.0-7.5 Urine-Color Yellow (Normal) Specific [place] 1.022 (Normal) Range: 1.005-1.030 7-Uux-764737:24 CBC WITH MANUAL DIFF Comments: PATIENT NOT FASTINGPERFORMED BY: LabCoDeborah Heart and Lung CenterQjinrd8455 [facility] [id number] Information: [id number] (42166) Immature Grans (Abs) 0.0 {x10E3/uL} (Normal) Range: [...] 3.77-5.28 WBC 7.9 {x10E3/uL} (Normal) Range: 4.0-10.5 0-Vur-140602:24 METABOLIC PANEL, COMPREHENSIVE Comments: PATIENT NOT FASTINGPERFORMED BY: [employer]70 [facility].cnC[facility] [id number] (19167) ALT (SGPT) 16 [iU]/L (Normal) Range: 0-32 [...] Glucose, Serum 107 mg/dL (Abnormal) Range: 65-99 8-Lch-018221:24 TSH (80265) Comments: PATIENT NOT FASTINGPERFORMED BY: IPLocks6370 WallerAlphaNationCone Health MedCenter [facility] [id number] TSH 2.000 {uIU/mL} Range: 0.450-4.500 (Normal) CCP Antibodies IgG/IgA 1 {units} (Normal) Comments: PATIENT NOT FASTINGPERFORMED BY: LabCorewell [facility] Hospital6370 [facility] [id number] BY: [address] [id number] :39 Range: 0-19 Comments: Negative <20 Weak positive 20 - 39 Moderate positive 40 - 59 Strong positive >59 :39 Systemic Lupus Profile Comments: PATIENT NOT FASTINGPERFORMED BY: LabThomas Ville 5684170 [facility] [id number] BY: [address] [id number] Information: [id number] (74787) Anti-DNA (DS) Ab Qn <1 {IU/mL} (Normal) Range: 0-9 Comments: Negative <5 Equivocal 5 - 9 Positive >9 Sjogren's Anti-SS-B 0.5 {AI} (Normal) Range: 0.0-0.9 Sjogren's Anti-SS-A 0.3 {AI} (Normal) Range: 0.0-0.9 Antichromatin Antibodies <0.2 {AI} (Normal) Range: 0.0-0.9 RA Latex Turbid. 8.5 {IU/mL} (Normal) Range: 0.0-13.9 [place] Antibodies <0.2 {AI} (Normal) Range: 0.0-0.9 DIGITAL DATA ANALYST Antibodies <0.2 {AI} (Normal) Range: 0.0-0.9 :27 HgA1C , Office (05308) HgA1C , Office 6.2 % (Normal) Range: 4.6 - 7.1 :27 Blood Glucose , Office (98577) Blood Glucose , Office 108 (Normal) :45 [...] D deficiency has been defined by the [place] ofMedicine and an Endocrine Society practice guideline as alevel of serum 25-OH vitamin D less than 20 ng/mL (1,2).The Endocrine Society went on to further define vitamin Dinsufficiency as a level between 21 and 29 ng/mL (2).1. IOM ([place] of Medicine). 2010. Dietary reference intakes for calcium and D. [place]: The National AcademSoftlanding Labs Press.2. Rachel MF, Yael NC, Dunia HERRERA, et al. Evaluation, treatment, and prevention of vitamin D deficiency: an Endocrine Society clinical practice guideline. JCEM. 2010; 96(7): 1911-30.Performed at: [facility] Lab[address] [id number] Director: Arnold Jefferson PhD, Phone: [phone] 42-Mzj-479014:59 Blood Glucose , Office (65212) Blood Glucose , Office 131 (Normal) 08-Cje-297879:58 HgA1C , Office (74390) HgA1C , Office 6.8 % (Normal) Range: 4.6 - 7.1 54-Xel-775380:12 CBCMD RBCM NORM C+C {NORMAL} (Normal) PE [...] mg/dL suggests DIABETES MELLITUS per A.D.A. criteria. 26-Dyf-119021:12 LIPID LDL 104 mg/dL (Normal) Range: 0-130 [...] 200-240 mg/dL Borderline >240 mg/dL High Risk 46-Bwx-594551:12 TSH 2.08 {uIU/mL} (Normal) Range: 0.358-3.74 38-Kha-813332:12 VITD 34.7 ng/mL (Normal) Range: 30.0-100.0 Comments: Vitamin D deficiency has been defined by the [place] ofMedicine and an Endocrine Society practice guideline as alevel of serum 25-OH vitamin D less than 20 ng/mL (1,2).The Endocrine Society went on to further define vitamin Dinsufficiency as a level between 21 and 29 ng/mL (2).1. IOM ([place] of Medicine). 2010. Dietary reference intakes for calcium and D. [place]: The National Academies Press.2. Rachel MF, Yael MARLEY, Dunia HERRERA, et al. Evaluation, treatment, and prevention of vitamin D deficiency: an Endocrine Society clinical practice guideline. JCEM. 2010; 96(7): 1911-30.Performed at: - Lab[address] [id number] Director: Tona Emmanuel MD, Phone: [phone] 52-Shv-690387:15 HgA1C , Office (16841) HgA1C , Office 5.8 % (Normal) Range: 4.6 - 7.1 86-Nbc-049517:15 Blood Glucose , Office (40692) Blood Glucose , Office 113 (Normal) :30 [...] D deficiency has been defined by the [place] ofMedicine and an Endocrine Society practice guideline as alevel of serum 25-OH vitamin D less than 20 ng/mL (1,2).The Endocrine Society went on to further define vitamin Dinsufficiency as a level between 21 and 29 ng/mL (2).1. IOM ([place] of Medicine). 2010. Dietary reference intakes for calcium and D. [place]: The National Academies Press.2. Rachel MF, Yael NC, Dunia HERRERA, et al. Evaluation, treatment, and prevention of vitamin D deficiency: an Endocrine Society clinical practice guideline. JCEM. 2010; 96(7): 1911-30.Performed at: [address] [id number] Director: Tona Emmanuel MD, Phone: [phone] 63-Yoo-853524:02 CTA NECK W/WO CONTRAST Radiology Report See [...] ologist regarding this report, please call our 85S2ikodpxi line @ Dictated on 10/08/11 [address]ER,Davidranscribed on 10/09/11 0856 by ITS IMPORTSign by Hema STREETER,Juana hairston on 10/09/11 0857 Sign by: Teo Wayne MD 48-Aqc-833016:00 BILAT SCRN DIGITAL & CAD Radiology Report [...] radiologist regarding this report, please call our 15O4uolbvdh line @ Dictated on 09/18/11 1040 by Ori clifton MD,Davidranscribed on 09/20/11 0901 by ITS IMPORTSign by Teo Wayne MD on 09/20/11 09 Sign by: Teo Wayne MD 26-Koc-48863:59 DEXA BONE DENSITY STUDY (HP) Radiology Report [...] regarding this re port, please call our 12C2kxnlivb line @ Dictated on 09/18/11 1002 by Dvaid Wayne MDranscribed on 09/19/11 1416 by ITS IMPORTSign by Teo Wayne MD on 09/19/11 1417 Sign by: Teo Wayne MD 77-Ida-881230:17 HgA1C , Office (66928) HgA1C , Office 5.9 % (Normal) Range: 4.6 - 7.1 99-Ovk-894203:17 Blood Glucose , Office (51409) Blood Glucose , Office 77 (Normal) 04-Sep-20119:44 [...] >240 mg/dL High Risk :44 VIT D,25 08081 22.3 ng/mL (Abnormal) Range: 30.0-100.0 Comments: Vitamin D deficiency has been defined by the [place] ofMedicine and an Endocrine Society practice guideline as alevel of serum 25-OH vitamin D less than 20 ng/mL (1,2).The Endocrine Society went on to further define vitamin Dinsufficiency as a level between 21 and 29 ng/mL (2).1. IOM ([place] of Medicine). 2011. Dietary reference intakes for calcium and D. [place]: The National Academies Press.2. Rachel MF, Yael NC, Dunia HERRERA, et al. Evaluation, treatment, and prevention of vitamin D deficiency: an Endocrine Society clinical practice guideline. JCEM. 2010; 96(7): 1911-30.Performed at: - LabCo[address] [id number] Director: Tona Emmanuel MD, Phone: [phone] :34 HgA1C , Office (07018) HgA1C , Office 6.6 % (Normal) Range: 4.6 - 7.1 :34 Blood Glucose , Office (77064) Blood Glucose , Office 116 (Normal) :50 [...] Range: 4.4-11.0 30-May-20118:50 COMP METABOLIC Comments: appt 02153 GAP 10 (Normal) Range: 5-15 CO2 26.0 [...] {uIU/mL} (Normal) Range: 0.358-3.74 :50 VIT D,25 38405 41.3 ng/mL (Normal) Range: 32.0-100.0 Comments: Effective June 18, 2011 Vitamin D, 25-Hydroxy reference intervals will be changing to 30-100. .Recent studies consider the lower li lalo of 32.0 ng/mL to be athreshold for optimal health.Pepito ANNE. J Nutr. 2004;135(2):317-22.Performed at: - [facility] [id number] Director: Tona Emmanuel MD, Phone: [phone] :50 VITAMIN B12 806 pg/mL (Normal) Range: [...] Panel (14) Comments: PATIENT WAS FASTINGPERFORMED BY: [facility] [id number] ALT (SGPT) 40 [iU]/L (Normal) Range: 0-40 [...] With LDL/HDL Comments: PATIENT WAS FASTINGPERFORMED BY: [employer] Technologyin [place] [id number] Ratio LDL Cholesterol Calc 74 mg/dL (Normal) [...] 0.192 {uIU/mL} Comments: PATIENT WAS FASTINGPERFORMED BY: [facility] [id number] 09 (Abnormal) Range: 0.450-4.500 : Vitamin B12 417 pg/mL (Normal) Comments: PATIENT WAS FASTINGPERFORMED BY: [facility] [id number] Range: 211-946 56-Gdo-363855:22 UNILAT LT DIAG DIGITAL & CAD Radiology [...] suspiciousabnor mality. Dictated on 02/22/11 [address]ER,GeerieleTranscribed on 02/23/11 151 by ITS IMPORTSign by Hema STREETER,Teo on 02/23/111510 Sign by: Teo Wayne MD :58 CBCD,SMEAR [...] {uIU/mL} (Abnormal) Range: 0.358-3.74 :58 VIT D,25 39878 22.0 ng/mL (Abnormal) Comments: appt 10/24/10 Range: 32.0-100.0 Comments: Recent studies consider the lower limit of 32.0 ng/mL to tammy threshold for optimal health.Pepito ANNE. J Nutr. 2004;135(2):317-22.Performed at: [facility] LabCoNatalie [place] [id number]Lab Director: Tona Emmanuel MD, Phone: [phone] :58 VITAMIN B12 285 pg/mL (Normal) Range: 254-1320 Comments: There is a low frequency possibility that high titers ofintrinsic blocking antibodies may not be completely inactivated during the reaction pretreatment stepof this testing method. If test results are i n conflictwith the clinical diagnosis, patient should be testedfor the presence of intrinsic factor blocking antibodies. 0-Fir-918231:42 Thin prep Pap Comments: Source.............Cervical;EndocervicalNo. of containers..01 CYTYC Thin Prep VialPATIENT NOT FASTINGPERFORMED BY: [facility] [address] [id number] Information: [id number] (75399) Note: PAPSMR (Normal) Comments: The Pap smear [...] for malignant neoplasm of the cervixMattsteve Montes Sander And Buffer (ASCP) 73-Wxx-562030:26 BREAST UNILATERAL Radiology Report See Note (Normal) [...] on 08/28/10 145 Sign by: ANTHONY PALOMARES 54-Raf-963261:58 UNILAT LT DIAG DIGITAL & CAD Radiology [...] Category 3: Probably Benign Finding - Initial Sqaeq-DpgetwurMovpzk-bq Suggested. A letter regarding these results will be sent tothepatient by the facility within 30 days. Approximately 10% of breast cancers are not detected by mammography. Anormal mammogram should not delay biopsy of a clinically suspiciousabnormality. Dictated on 08/24/10 1206 by ANTHONY PALOMARESTranscribed on 0 08/24/10 1351 by ITS IMPORTSign by ANTHONY PALOMARES on 08/24/10 1352 Sign by: ANTHONY PALOMARES 47-Cfd-95873:43 BILAT SCRN DIGITAL & CAD Radiology Report [...] PORTSign by ANTHONY PALOMARES MD on 08/18/10 145 Sign by: ANTHONY PALOMARES MD 2-Hbj-306585:14 HgA1C , Office (86666) HgA1C , Office 6.5 % (Normal) Range: 4.6 - 7.1 8-Owl-125624:14 Blood Glucose , Office (58408) Blood Glucose , Office 176 (Normal) 30-Jun-20107:30 [...] CREAT 161.2 mg/dL (Normal) : VIT D,25 77064 27.7 ng/mL Range: 32.0-100.0 30 (Abnormal) Comments: Recent studies consider the lower limit of 32.0 ng/mL to tammy threshold for optimal health.Pepito ANNE. J Nutr. 2004;135(2):317- 22.Performed at: [address] Director: Tona Emmanuel MD, Phone: [phone] : VITAMIN B12 449 pg/mL (Normal) Range: [...] {units} (Normal) Comments: PATIENT NOT FASTINGPERFORMED BY: [address] [id number] BY: [address] [id number] 0:44 Range: 0-19 Comments: Negative <20 Weak positive 20 - 39 Moderate positive 40 - 59 Strong positive >59 Comment: SPRCS (Normal) Comments: PATIENT NOT FASTINGPERFORMED BY: [address] [id number] BY: [address] [id number] 0:44 Comments: Effective April 25, 2009 order code 072580 CCP IgGAntibodies has been replaced due to an updated reagentversion 3.1. For this reason [facility] has provided youwith a new order code 453124 CCP Antibodies IgG/IgA. 19-Onx-440474:44 Vitamin D Hydroxy Comments: PATIENT NOT FASTINGPERFORMED BY: [address] [id number] BY: [address] [id number] (82311) Vitamin D, 25-Hydroxy 30.9 ng/mL (Abnormal) Range: 32.0-100.0 Comments: Recent studies consider the lower limit of 32.0 ng/mL to be athreshold for optimal health.Pepito ANNE. J Nutr. 2004;135(2):317-22. 59-Zya-112245:44 SED RATE ERYTHROCYTE Comments: PATIENT NOT FASTINGPERFORMED BY: [place] [address]8170 [facility] [id number] BY: [address] [id number] (36191) Sedimentation Rate-Westergren 4 mm/h (Normal) Range: 0-30 78-Pwy-513379:44 C-REACTIVE PROTEIN Comments: PATIENT NOT FASTINGPERFORMED BY: [place] 3558[address] [facility] [id number] BY: [address] [id number] (36381) C-Reactive Protein, Quant 2.5 mg/L (Normal) Range: 0.0-4.9 48-Ues-461478:44 TSH (65398) Comments: PATIENT NOT FASTINGPERFORMED BY: [address] [id number] BY: [address] [id number] TSH 2.050 {uIU/mL} (Normal) Range: 0.450-4.500 73-Rlr-980843:44 RHEUMATOID FACTOR-QUANT Comments: PATIENT NOT FASTINGPERFORMED BY: [facility] CenterCoDeborah Heart and Lung CenterDualyu4485 [facility] [id number] BY: [address] [id number] (36553) RA Latex Turbid. 8.4 {IU/mL} (Normal) Range: 0.0-13.9 15-Lkz-258423:44 MELI (ANTINUCLEAR ANTIBODY) Comments: PATIENT NOT FASTINGPERFORMED BY: LabCoJoshua [place] 0909370 [facility] [id number] BY: [address] [id number] (51439) MELI Direct Negative (Normal) 41-Eil-515400:44 CBC WITH MANUAL DIFF Comments: PATIENT NOT FASTINGPERFORMED BY: LabAvega SystemsJoshua [place] 0909370 [facility] [id number] BY: [address] [id number] Inf ormation: ADD [id number] AND DRAW FEE 99 3198 (58687) Immature Grans (Abs) 0.0 {x10E3/uL} (Normal) Range: [...] 3.80-5.10 WBC 6.8 {x10E3/uL} (Normal) Range: 4.0-10.5 88-Xgs-182619:44 METABOLIC PANEL, Comments: PATIENT NOT FASTINGPERFORMED BY: CB [facility] Rlzeix8295 [facility] [id number] BY: BN [facility] Ddqksafmme2978 [facility] [id number] [facility] (85876) ALT (SGPT) 21 [iU]/L (Normal) Range: 0-40 [...] (Abnormal) Range: 65-99 :33 HgA1C , Office (87036) HgA1C , Office 6.8 % (Normal) Range: 4.6 - 7.1 :33 Blood Glucose , Office (27334) Blood Glucose , Office 135 (Normal) :22 [...] CHOL 157 mg/dL (Normal) Comments: <200 mg/dL Iysaaqybf526-065 mg/dL Borderline>240 mg/dL High Risk :22 LIVER ALB 3.5 g/dL (Normal) Range: 3.4-5.0 ALK P 97 U/L (Normal) Range: 50-136 ALT 21 U/L (Normal) Range: 12-78 AST 16 U/L (Normal) Range: 15-37 D BILI 0.12 mg/dL (Normal) Range: 0.00-0.30 T BILI 0.40 mg/dL (Normal) Range: 0.00-1.00 T PROT 6.5 g/dL (Normal) Range: 6.4-8.2 :22 TSH 1.54 {uIU/mL} Range: 0.358-3.74 (Normal) :22 VIT D,25 83364 36.8 ng/mL (Normal) Range: 32.0-100.0 Comments: Recent studies consider the lower limit of 32.0 ng/mL to tammy threshold for optimal health.Pepito ANNE. J Nutr. 2004;135(2):317-22.Performed at: [address] [id number] Director: Tona Emmanuel MD, Phone: [phone] :22 VITAMIN B12 264 pg/mL (Normal) Range: 254-1320 Comments: There is a low frequency possibility that high titers ofintrinsic blocking antibodies may not be completelyinactivated during the reaction pretreatment stepof this testing method. If test results are in conflictwith the clinical diagnosis, patient should be testedfor the presence of intrinsic factor blocking antibodies. : Amylase, Serum 92 U/L (Normal) Comments: PERFORMED BY: [address] [id number] Range: 31-124 :34 CBC With Differential/Platelet Comments: PERFORMED BY: [address] [id number] Baso (Absolute) 0.0 {x10E3/uL} (Normal) Range: 0.0-0.2 [...] 3.80-5.10 WBC 7.5 {x10E3/uL} (Normal) Range: 4.0-10.5 47-Ywh-882638:34 Comp. Metabolic Panel (14) Comments: PERFORMED BY: [facility] [id number] ALT (SGPT) 18 [iU]/L (Normal) Range: 0-40 [...] Serum 57 U/L (Normal) Comments: PERFORMED BY: [facility] [id number] 13:34 Range: 0-59 03-Feb-20109:00 GALLBLADDER Radiology Report See Note (Normal) Comments: Exam Number: [id number] CLINICAL:Epigastric pain and bloating. ABDOMINAL ULTRASOUND TECHNIQUE:Transabdominal [...] hydronephrosis,etiology indeterminate. Reported By: KATHRYN MUNOZ M.D. 3-Gep-544213:19 CBC WITH MANUAL DIFF Comments: PATIENT NOT FASTINGPERFORMED BY: [facility] [facility] [id number] Information: [id number] (67671) Baso (Absolute) 0.1 {x10E3/uL} (Normal) Range: 0.0-0.2 [...] 3.80-5.10 WBC 9.9 {x10E3/uL} (Normal) Range: 4.0-10.5 0-Iua-078975:19 METABOLIC PANEL, COMPREHENSIVE Comments: PATIENT NOT FASTINGPERFORMED BY: LabCoDeborah Heart and Lung CenterPdshfu4125 [facility] [id number] (99723) ALT (SGPT) 19 [iU]/L (Normal) Range: 0-40 [...] Glucose, Serum 83 mg/dL (Normal) Range: 65-99 5-Bfp-842085:20 KNEE,4 OR MORE VIEWS (MT) Radiology Report See Note (Normal) Comments: Exam Number: [id number] CLINICAL:This is a 69-year-old female patient with [...] By: TEO WAYNE :12 HgA1C , Office (21368) HgA1C , Office 7.1 % (Normal) Range: 4.6 - 7.1 :12 Blood Glucose , Office (67280) Blood Glucose , Office 129 (Normal) :45 [...] CHOL 155 mg/dL (Normal) Comments: <200 mg/dL Bbfleminc605-958 mg/dL Borderline>240 mg/dL High Risk :45 VIT D,25 56645 42.5 ng/mL (Normal) Range: 32.0-100.0 Comments: Recent studies consider the lower limit of 32.0 ng/mL to tammy threshold for optimal health.Pepito . J Nutr. 2004;135(2):317-22.Performed at: [employer] [id number] Director: Tona Emmanuel MD :53 LIPID HDL [...] CHOL 128 mg/dL (Normal) Comments: <200 mg/dL Bkvtlwwkv668-794 mg/dL Borderline>240 mg/dL High Risk :53 MICROALB:CRE UR MALB:CREAT 19.1 {mg/g_CRE} (Normal) MICROALBUMIN,UR 29.1 mg/L (Normal) UR CREAT 152.0 mg/dL (Normal) :53 TSH 0.93 {uIU/mL} (Normal) Range: 0.358-3.74 :53 VIT D, 56713 22.7 ng/mL (Abnormal) Range: 32.0-100.0 Comments: Recent studies consider the lower limit of 32.0 ng/mL to tammy threshold for optimal health.Pepito ANNE. J Nutr. 2004;135(2):317-22.Performed At: [facility] [place], [place] [id number] :53 VITAMIN B12 337 pg/mL (Normal) Range: 254-1320 :09 HgA1C , Office (75806) HgA1C , Office 7.1 % (Normal) Range: 4.6 - 7.1 :09 Blood Glucose , Office (21518) Blood Glucose , Office 108 (Normal) :33 KNEE,4 OR MORE VIEWS (MT) Radiology Report See Note (Normal) Comments: Exam Number: [id number] CLINICAL:Pain X-RAY EXAMINATION RIGHT KNEE TECHNIQUE:Three view(s) [...] Report See Note (Normal) Comments: Exam Number: [id number] CLINICAL:Pain X-RAY EXAMINATION: RIGHT TIBIA AND FIBULA [...] (MT) Radiology See Note Comments: Exam Number: [id number] CLINICAL:Pain X-RAY EXAMINATION: RIGHT FEMUR TECHNIQUE:Two views [...] Visualized femur. Reported By: RAYMOND ARRIAGA M.D. 9-Ivy-549479:43 UNILAT LT DIAG DIGITAL & CAD Radiology Report See Note (Normal) Comments: Exam Number: [id number] MAMMOGRAM, UNILATERAL LEFT DIAGNOSTIC DIGITAL AND CAD HISTORYAbnormal mammogram, left breast. TECHNIQUEFull field digital images were obtained in left true lateral, rolledcranio caudal, and spot mediolateral oblique and craniocaudalprojections. CAD images were reviewed. The current study is compared to the examinations of March 12, 2006,and June 21, 2009. FINDINGSThere is a oxmhbgfh-dv-khmpzk extent of fibroglandular parenchymapresent. There is no [...] wereal so examined with computer-aided detection software (ImageINSOMENIAcker, [place] Reported By: ANTHONY PALOMARES M.D. 87-Hnf-371727:04 BILAT [facility] DIGITAL & CAD Radiology Report See Note (Normal) Comments: Exam Number: [id number] MAMMOGRAM, BILATERAL SCREENING DIGITAL AND CAD HISTORYRoutine [...] werealso examined with computer- aided detection software ([employer], [employer].). Reported By: ANTHONY PALOMARES M.D. 48-Jfk-391123:03 DEXA BONE DENSITY STUDY () Radiology Report See Note (Normal) Comments: Exam Number: [id number] BONE DENSITOMETRY HISTORYOsteopenia. TECHNIQUE Bone densitometry of the lumbar spine and both hips is now beingperformed. The best criteria for evaluation of osteoporosis is theT-value, which represents the comparison of the patient's bone mass flako expected peak bone mass. For most patients, the mean T-value of W9hwbuajv L4 is used to evaluate the lumbar spine. To evalua te the hip,the lower T-value of the femoral neck or total hip is used. FINDINGSIn this patient, the mean T-value of L1 through L4 is 0.3 which isnormal. Bone mineral density is measured at 18.3% greate r than or7892.Digital lateral view for evaluation of vertebral deformity [...] within normallimits. Reported By: ANTHONY PALOMARES M.D. 11-Lbd-016677:09 BRAIN/HEAD W/WO CONTRAST Radiology Report See Note (Normal) Comments: Exam Number: [id number] CLINICAL:69 year old female with altered mental [...] :02 IRON 59 ug/dL (Normal) Range: 50-170 83-Qqj-58492:02 LIPID CHOL 170 mg/dL (Normal) Comments: <200 [...] mg/dL VLDL 32 mg/dL (Normal) Range: 5-40 76-Ieq-06735:02 MICROALB:CRE UR MALB:CREAT 38.4 {mg/g_CRE} (Abnormal) MICROALBUMIN,UR 47.5 mg/L (Normal) UR CREAT 123.4 mg/dL (Normal) 07-Jun-2009 VIT D,25 38329 19.7 ng/mL Range: 32.0-100.0 9:02 (Abnormal) Comments: Recent studies consider the lower limit of 32.0 ng/mL to tammy threshold for optimal health.Pepito ANNE. J Nutr. 2004;135(2):317- 22.Performed At: [facility] [place], [place] [id number] 07-Jun-2009 VITAMIN B12 328 pg/mL (Normal) Range: 254-1320 9:02 11-Feb-2009 Homocyst(e)ine, Plasma 9.8 umol/L (Normal) Comments: PERFORMED BY: [employer] [address] [id number] 14:28 Range: 0.0-15.0 11-Feb-2009 Methylmalonic Acid, 336 nmol/L (Normal) Comments: PERFORMED BY: [employer] [address] [id number] 14:28 Serum Range: 73-376 Comments: The reference range for methylmalonic acid has been set at +3sd abovethe mean for healthy blood bank donors. In the clinical assessment ofpatients with megaloblastic anemias a cutoff of +3sd provides gr eaterspecificity in the diagnosis of the vitamin deficiency states,despite the sacrifice of some sensitivity. 11-Feb-2009 TSH 2.700 {uIU/mL} Comments: PERFORMED BY: [facility] [id number] 14:28 (Normal) Range: 0.450-4.500 11-Feb-2009 Vitamin B12 231 pg/mL (Normal) Comments: PERFORMED BY: [facility] Nkwhcqhprz1706 [facility] [id number] 14:28 Range: 211-911 0-Iru-393835:09 HAND,MIN 3 VIEWS (MT) Radiology Report See Note (Normal) Comments: Exam Number: [id number] RIGHT WRIST CLINICAL DATAFell and injured the [...] osteoarthritis right hand. Reported By: FERNANDO TUCKER 2-Qed-279032:09 WRIST,MIN 3 VIEWS (MT) Radiology Report See Note (Normal) Comments: Exam Number: [id number] RIGHT WRIST CLINICAL DATAFell and injured the [...] PANEL, COMPREHENSIVE Comments: PATIENT WAS FASTINGPERFORMED BY: [facility] [id number] (77141) A/G Ratio 1.9 (Normal) Range: 1.1-2.5 Albumin, [...] 141 mmol/L (Normal) Range: 135-145 :42 TSH (85441) Comments: PATIENT WAS FASTINGPERFORMED BY: [employer] [facility] [id number] TSH 4.980 {uIU/mL} (Abnormal) Range: 0.450-4.500 :42 MICROALBUMIN: CREATININE RATIO Comments: PATIENT WAS FASTINGPERFORMED BY: [facility] [id number] (72783) AND (37742) Creatinine, Urine 130.9 mg/dL (Normal) Range: 15.0-278.0 Microalb/Creat Ratio 66.4 {ug/mg_creat} (Abnormal) Range: 0.0-30.0 Microalbumin, Urine 86.9 ug/mL (Abnormal) Range: 0.0-17.0 :42 LIPID PANEL (37796) Comments: PATIENT WAS FASTINGPERFORMED BY: EverybodyCarDeborah Heart and Lung CenterToiuax8545 [facility] [id number] Cholesterol, Total 148 mg/dL (Normal) Range: 100-199 HDL Cholesterol 42 mg/dL (Normal) Comments: According to ATP-III Guidelines, HDL-C >59 mg/dL is considered anegative risk factor for CHD. LDL Cholesterol Calc 78 mg/dL (Normal) Range: 0-99 LDL/HDL Ratio 1.9 {ratio_units} (Normal) Range: 0.0-3.2 Triglycerides 141 mg/dL (Normal) Range: 0-149 VLDL Cholesterol Priscilla 28 mg/dL (Normal) Range: 5-40 :42 CBC WITH MANUAL DIFF (70797) Comments: PATIENT WAS FASTINGClinical Information: ADD DRAW FEE 104987 ADD J 51614 PERFORMED BY: HomeWellnessDeborah Heart and Lung CenterSyeqqh89[address] [place] [address] [id number] Baso (Absolute) 0.1 {x10E3/uL} (Normal) Range: 0.0-0.2 [...] B-12 (CYANOCOBALAMIN) Comments: PATIENT WAS FASTINGPERFORMED BY: LabCoDeborah Heart and Lung CenterGpbsik9721 [facility] [id number] (58135) Vitamin B12 232 pg/mL (Normal) Range: 211-911 1-Had-696749:06 Blood Glucose , Office (37513) Blood Glucose , Office 155 (Normal) :27 [...] 47-70 WBC 8.7 K/mm3 (Normal) Range: 4.4-11.0 88-Ppv-58764:27 COMP METABOLIC A/G 1.1 {RATIO} (Normal) Range: [...] :27 TSH 5.10 {uIU/mL} (Abnormal) Range: 0.34-4.82 90-Hlb-445376:06 TSH 2.34 {uIU/mL} (Normal) Range: 0.34-4.82 3-Soj-992105:27 HgA1C , Office (22827) Comments: done>Wf. HgA1C , Office 6.2 % (Normal) Range: 4.6 - 7.1 :27 Blood Glucose , Office (24755) Comments: done>Wf. Blood Glucose , Office 152 (Normal) 4-Cfc-023951:55 CBCD BASO% 0.9 % (Normal) Range: 0-1 [...] 11.6-14.6 WBC 7.5 K/mm3 (Normal) Range: 4.4-11.0 0-Ywy-932086:55 COMP METABOLIC A/G 1.2 {RATIO} (Normal) Range: [...] for patient's is the eGFRmultiplied by 1.212. [facility] Laboratory uses the abbreviated Modification of Diet [...] Disease W/O Kidney Disease>/= 90 Stage One Mwtlyr85 - 89 Stage Two Suspect Decrease d [...] T PROT 7.3 g/dL (Normal) Range: 6.4-8.2 8-Gyf-098795:55 LIPID CHOL 287 mg/dL (Abnormal) Comments: <200 [...] mg/dL VLDL 50 mg/dL (Abnormal) Range: -40 7-Xfp-299650:55 MICROALB:CRE UR MALB:CREAT 28.3 {mg/g_CRE} (Normal) MICROALBUMIN,UR 41.7 mg/L (Normal) UR CREAT 147.6 mg/dL (Normal) 6-Yyn-944195:55 TSH 5.53 {uIU/mL} (Abnormal) Range: 0.34-4.82 95-Mnd-100549:25 TSH 0.16 {uIU/mL} (Abnormal) Range: 0.34-4.82 88-Hfq-862568:31 HgA1C , Office (80605) Comments: done km HgA1C , Office 6.5 % (Normal) Range: 4.6 - 7.1 :31 Blood Glucose , Office (68400) Comments: done Blood Glucose , Office 128 (Normal) :01 TSH 5.15 {uIU/mL} (Abnormal) Range: 0.34-4.82 :12 HgA1C , Office (52972) Comments: done km HgA1C , Office 6.2 % (Normal) Range: 4.6 - 7.1 :12 Blood Glucose , Office (30246) Comments: done Blood Glucose , Office 187 [...] Serum 117 ng/mL (Normal) Comments: PERFORMED BY: [email or web address] [id number] Range: 10-291 :33 Iron and TIBC Comments: PERFORMED BY: [email or web address] [id number] Iron Bind.Cap.(TIBC) 304 ug/dL (Normal) Range: 250-450 Iron Saturation 26 % (Normal) Range: 15-55 Iron, Serum 78 ug/dL (Normal) Range: 35-155 UIBC 226 ug/dL (Normal) Range: 150-375 : Vitamin B12 412 pg/mL (Normal) Comments: PERFORMED BY: [email or web address] [id number] Range: 211-911 :56 LIPID CHOL 222 [...] (Normal) Range: 6.4-8.2 :07 HgA1C , Office (72922) Comments: done km HgA1C , Office 5.9 % (Normal) Range: 4.6 - 7.1 :07 Blood Glucose , Office (79839) Comments: done km Blood Glucose , Office 132 (Normal) 66-Idz-884777:08 B12/FOLATES FOLATES,SERUM > 24.00 ng/mL (Normal) VITAMIN B12 479 pg/mL (Normal) Range: 211-911 97-Ajg-468648:08 CBCD BASO% 0.5 % (Normal) Range: 0-1 [...] mg/dL (Abnormal) Range: 34-200 Comments: Performed At: [address] [id number] 95-Nve-914412:08 IRON+TIBC IRON SATURATION 17.9 % (Normal) Range: 15.0-55.0 IRON, SERUM 52 ug/dL (Normal) Range: 35-150 TIBC 290 ug/dL (Normal) Range: 250-450 77-Vtp-081746:08 LDH 151 U/L (Normal) Range: 100-190 :08 [...] mg/dL (Normal) Range: 34-200 Comments: Performed At: [address] [id number] IRON+TIBC IRON SATURATION 17.1 % (Normal) [...] 1.50 SUGGEST CO :48 HgA1C , Office (31205) HgA1C , Office 6.4 % (Normal) Range: 4.6 - 7.1 :48 Blood Glucose , Office (25709) Blood Glucose , Office 113 (Normal) Plan [...] Indication: Double vision Double vision : Reviewed Apparatus Lineman Letter Indication: Double vision Fatty liver : [...] BMI 36.0-36.9,adult Right hip pain : Reviewed [employer]aratus [employer]eman Letter Indication: Right hip pain Right hip [...] (monoclonal gammopathy of unknown significance) : Reviewed Apparatus Lineman Letter- stable and discharged from onc Indication: [...] Fall down steps, initial encounter : Reviewed Apparatus [employer]eman Letter Indication: Fall down steps, initial encounter [...] infarction, unspecified Cerebral infarction, unspecified : Reviewed [employer]aratus [employer]eman Letter Indication: Cerebral infarction, unspecified Upper respiratory [...] Planned Observations CBC, PLATELETS & AUT DIFF (70906)Indication: Other vitamin B12 deficiency anemia On: :17 Request TSH (85484)Indication: Abnormal TSH On: :38 Request T4, FREE (THYROXINE) (75331)Indication: Abnormal TSH On: :38 Request T3, FREE (TRIDOTHYRONINE) (74191)Indication: Abnormal TSH On: :38 Request ANTI-LIVER/KIDNEY MICROSOMAL ANTIBODY (40260)Indication: Elevated liver enzymes On: 09-Uji-461666:34 Request TSH (51473)Indication: Abnormal TSH On: 49-Ovj-205462:31 Request T4, FREE (THYROXINE) (93056)Indication: Abnormal TSH On: 30-Eqw-179155:31 Request T3, FREE (TRIDOTHYRONINE) (39803)Indication: Abnormal TSH On: 73-Ago-501446:31 Request BETA-2 MICROGLOBULIN (33362)Indication: Abnormal blood chemistry On: 26-Dmd-573445:08 Request Urinalysis, Office (98945)Indication: Urinary frequency On: 35-Kxz-969289:38 Request CBC WITH MANUAL DIFF (29377)Indication: Therapeutic drug monitoring On: :57 Request Metabolic Panel, Basic (51727)Indication: Therapeutic drug monitoring On: :57 Request Methymalonic Acid, Serum (09848)Indication: Vitamin B 12 deficiency On: 44-Orw-945485:51 Request CALCIFIDIOL (29051) VIT D 25Indication: Vitamin D deficiency, unspecified On: :45 Request LIPID PANEL (50251)Indication: Other and unspecified hyperlipidemia On: 08-Xik-948262:45 Request CALCIFIDIOL (11336) VIT D 25Indication: Uncontrolled type II diabetes mellitus On: :46 Request TSH (35374)Indication: Uncontrolled type II diabetes mellitus On: :46 Request URINALYSIS, W/ MICRO (75173)Indication: Uncontrolled type II diabetes mellitus On: :46 Request MICROALBUMIN: CREATININE RATIO (14598) AND (56242)Indication: Uncontrolled type II diabetes mellitus On: :46 Request METABOLIC PANEL, COMPREHENSIVE (18865)Indication: Uncontrolled type II diabetes mellitus On: :46 Request LIPID PANEL (54070)Indication: Uncontrolled type II diabetes mellitus On: :45 Request CBC W/AUTO DIFF WBC (19922)Indication: Uncontrolled type II diabetes mellitus On: :45 Request Rapid Flu (62763 x 2)Indication: Flu-like symptoms On: 81-Zzb-330462:12 Request VITAMIN B-12 (CYANOCOBALAMIN) (91122)Indication: Vitamin B 12 deficiency On: 46-Szx-355967:45 Request FECAL OCCULT- Tubes sent home (40836)Indication: Encounter for screening for malignant neoplasm of colon (Renamed from Special screening for malignant neoplasms, colon) On: 44-Bcf-484552:35 Request THYROXINE FREE (42032)Indication: Tachycardia On: 8-Lld-062183:04 Request FREE TRIDOTHYRONINE (T3) (13127)Indication: Tachycardia On: :04 Request TSH (THYROID STIMULATING HORMONE) (20508)Indication: Tachycardia On: 0-Edg-497469:04 Request serum immunofixation (34710)Indication: MGUS (monoclonal gammopathy of unknown significance) On: 77-Xfy-763177:14 Request urine immunofixation (75878)Indication: MGUS (monoclonal gammopathy of unknown significance) On: 79-Qhp-674267:14 Request serum free light chains (43814)Indication: MGUS (monoclonal gammopathy of unknown significance) On: 77-Nde-740940:14 Request CBC W/AUTO DIFF WBC (21895)Indication: Diabetes mellitus type 2, controlled On: :13 Request MICROALBUMIN: CREATININE RATIO (48796) AND (68443)Indication: Diabetes mellitus type 2, controlled On: 92-Mzv-794562:13 Request METABOLIC PANEL, COMPREHENSIVE (92833)Indication: Diabetes mellitus type 2, controlled On: 25-Tto-052786:13 Request LIPID PANEL (55164)Indication: Mixed hyperlipidemia On: 02-Avc-769501:13 Request VITAMIN B-12 (CYANOCOBALAMIN) (29485)Indication: Other vitamin B12 deficiency anemia On: 23-Bmw-982348:12 Request CBC (AUTO) (30357)Indication: Other vitamin B12 deficiency anemia On: 61-Phh-213324:12 Request Vitamin D Hydroxy (77224)Indication: Vitamin D deficiency, unspecified On: 76-Jvi-952949:12 Request LIPID PANEL (49274)Indication: Mixed hyperlipidemia On: 0-Bid-057189:42 Request METABOLIC PANEL, COMPREHENSIVE (56144)Indication: Benign essential hypertension (Renamed from Benign essential HTN) On: :41 Request MICROALBUMIN: CREATININE RATIO (67930) AND (34064)Indication: Benign essential hypertension (Renamed from Benign essential HTN) On: :41 Request SPEP (06547)Indication: Anemia, unspecified On: 26-Vcv-432379:17 Request UPEP (48386)Indication: Anemia, unspecified On: 18-Abn-293441:17 Request CBC W/AUTO DIFF WBC (89369)Indication: Iron (Fe) deficiency anemia On: :38 Request TSH (02985)Indication: Acquired hypothyroidism On: :38 Request TSH (20228)Indication: Acquired hypothyroidism On: :34 Request SPEP (70821)Indication: Iron (Fe) deficiency anemia On: :34 Request UPEP (23312)Indication: Iron (Fe) deficiency anemia On: :34 Request IRON BINDING CAPACITY (TIBC) (72885)Indication: Iron (Fe) deficiency anemia On: :34 Request FERRITIN (16247)Indication: Iron (Fe) deficiency anemia On: :34 Request IRON (18276)Indication: Iron (Fe) deficiency anemia On: :34 Request CBC, PLATELETS & AUT DIFF (10471)Indication: Other vitamin B12 deficiency anemia On: :34 Request VITAMIN B-12 (CYANOCOBALAMIN) (96169)Indication: Other vitamin B12 deficiency anemia On: :33 Request Hemoglobin Glyclated (HGB A1C) (89576)Indication: Diabetes mellitus type 2, controlled On: :33 Request CBC, PLATELETS & AUT DIFF (61323)Indication: Other vitamin B12 deficiency anemia On: 00-Zyi-731741:31 Request VITAMIN B-12 (CYANOCOBALAMIN) (38972)Indication: Other vitamin B12 deficiency anemia On: :30 Request METABOLIC PANEL, COMPREHENSIVE (57656)Indication: Benign essential hypertension (Renamed from Benign essential HTN) On: :30 Request LIPID PANEL (49900)Indication: Other and unspecified hyperlipidemia On: :30 Request Vitamin D Hydroxy (37498)Indication: Vitamin D deficiency, unspecified On: :30 Request PGTQC-JCLWTFVHIZW-BBXKK (30259)Indication: Fatty liver On: :30 Request YASKV-WFQNAHNAZMC-RQAOV (90458)Indication: Fatty liver On: 68-Ckl-336867:24 Request LIPID PANEL (13327)Indication: Mixed hyperlipidemia On: : Request TSH (08687)Indication: Acquired hypothyroidism On: : Request MICROALBUMIN: CREATININE RATIO (35271) AND (72537)Indication: Diabetes mellitus type 2, controlled On: : Request METABOLIC PANEL, COMPREHENSIVE (84566)Indication: Diabetes mellitus type 2, controlled On: : Request Vitamin D Hydroxy (67231)Indication: Vitamin D deficiency, unspecified On: Request CBC, PLATELETS & AUT DIFF (37433)Indication: Other vitamin B12 deficiency anemia On: : Request VITAMIN B-12 (CYANOCOBALAMIN) (88027)Indication: Other vitamin B12 deficiency anemia On: : Request Vitamin D Hydroxy (65428)Indication: Vitamin D deficiency, unspecified On: :38 Request VITAMIN B-12 (CYANOCOBALAMIN) (98026)Indication: Other vitamin B12 deficiency anemia On: :38 Request CBC W/AUTO DIFF WBC (98677)Indication: Other vitamin B12 deficiency anemia On: :37 Request TSH (77037)Indication: Acquired hypothyroidism On: :37 Request LIPID PANEL (66418)Indication: Mixed hyperlipidemia On: :37 Request UXBNF-VYMIIJUBUVF-MSLYI (47996)Indication: Fatty liver On: :08 Request PTT (Activated Partial Thromboplastin Time) (05616)Indication: Fatty liver On: :08 Request PT (Prothrobim Time) (52629)Indication: Fatty liver On: :08 Request Vitamin D Hydroxy (42542)Indication: Vitamin D deficiency, unspecified On: : Request VITAMIN B-12 (CYANOCOBALAMIN) (97832)Indication: Other vitamin B12 deficiency anemia On: 62-Fjh-987344:00 Request CBC W/AUTO DIFF WBC (08172)Indication: Diabetes mellitus type 2, controlled On: 87-Qvn-967332: Request METABOLIC PANEL, COMPREHENSIVE (16613)Indication: Diabetes mellitus type 2, controlled On: 37-Iip-869235:00 Request LIPID PANEL (65805)Indication: Mixed hyperlipidemia On: 20-Iya-783717:00 Request LIPID PANEL (65683)Indication: HYPERTENSION, NOS On: 0-Adw-214458:40 Request CBC WITH MANUAL DIFF (85185)Indication: HYPERTENSION, NOS On: 3-Aqs-016360:40 Request METABOLIC PANEL, COMPREHENSIVE (45833)Indication: HYPERTENSION, NOS On: 8-Jpd-029074:40 Request FECAL OCCULT- Tubes sent home (13893)Indication: Anemia, unspecified On: 99-Daf-088087:38 Request IRON (99353)Indication: Anemia, unspecified On: 42-Vqh-673918:38 Request CBC WITH MANUAL DIFF ([id number])Indication: HYPERTENSION, NOS On: 0-Tsr-491337:29 Request METABOLIC PANEL, COMPREHENSIVE (93673)Indication: Uncontrolled type II diabetes mellitus On: 0-Imq-887820:28 Request TSH (THYROID STIMULATING HORMONE) (07086)Indication: Acquired hypothyroidism On: 33-Fug-207186:08 Request HgA1C , Office (20763)Indication: Diabetes mellitus type 2, controlled On: 25-Rzl-131760:55 Request VITAMIN B-12 (CYANOCOBALAMIN) (92269)Indication: Other vitamin B12 deficiency anemia On: 8-Cam-621437:17 Request LIPID PANEL (92257)Indication: Other and unspecified hyperlipidemia On: 4-Kqu-288187:17 Request MICROALBUMIN: CREATININE RATIO (55937) AND (85633)Indication: Uncontrolled type II diabetes mellitus On: 1-Vvd-617668:17 Request METABOLIC PANEL, COMPREHENSIVE (78441)Indication: Uncontrolled type II diabetes mellitus On: 5-Mke-616982:17 Request HgA1C , Office (37119)Indication: Diabetes mellitus type 2, controlled On: 00-Nnz-565012:25 Request LIPID PANEL (78634)Indication: Other and unspecified hyperlipidemia On: 29-Tyj-390422:11 Request METABOLIC PANEL, COMPREHENSIVE (37658)Indication: Diabetes mellitus type 2, controlled On: 04-Xlx-024789:11 Request MICROALBUMIN: CREATININE RATIO (10125) AND (30957)Indication: Diabetes mellitus type 2, controlled On: 81-Qba-952724:11 Request VITAMIN B-12 (CYANOCOBALAMIN) (51567)Indication: Other vitamin B12 deficiency anemia On: 79-Nqi-475884:11 Request CBC, PLATELETS & AUT DIFF (07591)Indication: Other vitamin B12 deficiency anemia On: :11 Request Vitamin D Hydroxy (30373)Indication: Vitamin D deficiency, unspecified On: 32-Cxb-835045:10 Request Blood Glucose , Office (45360)Indication: Diabetes mellitus type 2, controlled On: :29 Request LIPID PANEL (06027)Indication: Other and unspecified hyperlipidemia On: : Request Vitamin D Hydroxy (75972)Indication: Vitamin D deficiency, unspecified On: : Request VITAMIN B-12 (CYANOCOBALAMIN) (02967)Indication: Other vitamin B12 deficiency anemia On: : Request METABOLIC PANEL, COMPREHENSIVE (82348)Indication: Benign essential hypertension (Renamed from Benign essential HTN) On: : Request MICROALBUMIN: CREATININE RATIO (12068) AND (07808)Indication: Uncontrolled type II diabetes mellitus On: :26 Request Sputum Culture (37201)Indication: Chronic cough On: 9-Vzi-185605:58 Request RANI CULTURE-OTHER (33475)Indication: Sore throat On: 96-Vuu-148816:06 Request Urinalysis, Office (42063)Indication: Abnormal urine On: 9-Zix-502378:14 Request RANI CULTURE-OTHER (06068)Indication: Abnormal urine On: 2-Qgm-062281:14 Request CCP ANTIBODY (38239)Indication: History of poliomyelitis (Renamed from H/O acute poliomyelitis) On: 9-Tde-625068:22 Request ANTI-Sm (ANTI [place] ANTIBODY) (69441) test code [id number]: History of poliomyelitis (Renamed from H/O acute poliomyelitis) On: : Request RHEUMATOID FACTOR-QUANT (83583) test code 056130Zwgfhuszic: History of poliomyelitis (Renamed from H/O acute poliomyelitis) On: 3-Kzz-969872:22 Request Vitamin D Hydroxy (24378)Indication: Vitamin D deficiency, unspecified On: 13-Omf-013267:15 Request LIPID PANEL (72729)Indication: Other and unspecified hyperlipidemia On: 62-Prh-802758:15 Request TSH (77781)Indication: Acquired hypothyroidism On: 84-Xmo-522452:15 Request METABOLIC PANEL, COMPREHENSIVE (88618)Indication: Diabetes mellitus type 2, controlled On: 07-Mil-151792:14 Request VITAMIN B-12 (CYANOCOBALAMIN) (14702)Indication: Other vitamin B12 deficiency anemia On: 02-Aie-340044:08 Request MICROALBUMIN: CREATININE RATIO (60920) AND (66549)Indication: Uncontrolled type II diabetes mellitus On: 21-Nzl-187372:30 Request METABOLIC PANEL, COMPREHENSIVE (43095)Indication: Uncontrolled type II diabetes mellitus On: 35-Leu-632781:30 Request TSH (23488)Indication: Acquired hypothyroidism On: 51-Mjt-534690:30 Request Vitamin D Hydroxy (92631)Indication: Vitamin D deficiency, unspecified On: 68-Kxi-893335:30 Request LIPID PANEL (54302)Indication: Other and unspecified hyperlipidemia On: 68-Ozq-001957:29 Request LIPID PANEL (64877)Indication: Other and unspecified hyperlipidemia On: 38-Ljx-125448:51 Request TSH (68028)Indication: Acquired hypothyroidism On: 74-Avh-171097:50 Request Vitamin D Hydroxy (50241)Indication: Vitamin D deficiency, unspecified On: 00-Akj-053180:50 Request CBC WITH MANUAL DIFF (71710)Indication: Diabetes mellitus type 2, controlled On: 36-Mdc-709266:50 Request METABOLIC PANEL, COMPREHENSIVE (77626)Indication: Diabetes mellitus type 2, controlled On: 35-Cex-643999:50 Request Vitamin D Hydroxy (75833)Indication: Vitamin D deficiency, unspecified On: 39-Ujm-563501:44 Request VITAMIN B-12 (CYANOCOBALAMIN) (39438)Indication: Other vitamin B12 deficiency anemia On: 22-Cjy-760009:44 Request CBC WITH MANUAL DIFF (42921)Indication: Anemia, unspecified On: 93-Fgn-044467:43 Request METABOLIC PANEL, COMPREHENSIVE (00573)Indication: Diabetes mellitus type 2, controlled On: 61-Pak-335293:43 Request MICROALBUMIN: CREATININE RATIO (76528) AND (18874)Indication: Diabetes mellitus type 2, controlled On: Request LIPID PANEL (87372)Indication: Other and unspecified hyperlipidemia On: :43 Request TSH (25656)Indication: Acquired hypothyroidism On: Request Vitamin D Hydroxy (70227)Indication: Vitamin D deficiency, unspecified On: : Request LIPID PANEL (08685)Indication: Other and unspecified hyperlipidemia On: : Request CBC WITH MANUAL DIFF (62445)Indication: Diabetes mellitus type 2, controlled On: : Request METABOLIC PANEL, COMPREHENSIVE (36394)Indication: Diabetes mellitus type 2, controlled On: : Request VITAMIN B-12 (CYANOCOBALAMIN) (23693)Indication: Other vitamin B12 deficiency anemia On: :36 Request Comments: Lot #[id number]/13Site-left deltoidDose-1 mlgiven by: Dani Rivera LPN LIPID PANEL (76047)Indication: Other and unspecified hyperlipidemia On: Request METABOLIC PANEL, COMPREHENSIVE (36652)Indication: Uncontrolled type II diabetes mellitus On: : Request TSH (88861)Indication: Acquired hypothyroidism On: Request Vitamin D Hydroxy (60374)Indication: Vitamin D deficiency, unspecified On: : Request CBC WITH MANUAL DIFF (19793)Indication: Anemia, unspecified On: Request CBC WITH MANUAL DIFF (30275)Indication: Other vitamin B12 deficiency anemia On: :20 Request Blood Glucose , Office (51655)Indication: Uncontrolled type II diabetes mellitus On: :15 Request Comments: 149 HgA1C , Office (94780)Indication: Uncontrolled type II diabetes mellitus On: : Request METABOLIC PANEL, COMPREHENSIVE (15791)Indication: Other and unspecified hyperlipidemia On: : Request LIPID PANEL (03459)Indication: Other and unspecified hyperlipidemia On: : Request TSH (69471)Indication: Acquired hypothyroidism On: 36-Srb-258368:22 Request HEMOGLOBIN GLYCLATED (HGB A1C) (67393)Indication: Abnormal glucose tolerance test On: 83-Ppi-862912:20 Request VITAMIN B-12 (CYANOCOBALAMIN) (96599)Indication: Other vitamin B12 deficiency anemia On: 42-Msp-764677:17 Request Vitamin D Hydroxy (75300)Indication: Vitamin D deficiency, unspecified On: :21 Request VITAMIN B-12 (CYANOCOBALAMIN) (30248)Indication: Other vitamin B12 deficiency anemia On: :20 Request LIPID PANEL (78574)Indication: Abnormal glucose tolerance test On: :20 Request CBC WITH MANUAL DIFF (72705)Indication: Abnormal glucose tolerance test On: :20 Request METABOLIC PANEL, COMPREHENSIVE (75970)Indication: Abnormal glucose tolerance test On: :20 Request METABOLIC PANEL, COMPREHENSIVE (01646)Indication: Abnormal glucose tolerance test On: 7-Vcu-279004:59 Request CBC WITH MANUAL DIFF (92550)Indication: Abnormal glucose tolerance test On: 9-Vlw-575067:59 Request Vitamin D Hydroxy (07182)Indication: Vitamin D deficiency, unspecified On: 2-Voc-968771:59 Request VITAMIN B-12 (CYANOCOBALAMIN) (45362)Indication: Other vitamin B12 deficiency anemia On: 6-Ipd-761014:59 Request TSH (87624)Indication: Acquired hypothyroidism On: 2-Hbx-023960:58 Request LIPID PANEL (45249)Indication: Other and unspecified hyperlipidemia On: 2-Ifb-079742:58 Request CCP ANTIBODY (98340)Indication: Pain in unspecified joint On: 84-Alu-664601:22 Request VITAMIN B-12 (CYANOCOBALAMIN) (64748)Indication: Other vitamin B12 deficiency anemia On: 2-Zzy-593859:10 Request Vitamin D Hydroxy (25136)Indication: Vitamin D deficiency, unspecified On: 8-Bpq-461444:10 Request MICROALBUMIN: CREATININE RATIO (57969) AND (69700)Indication: Uncontrolled type II diabetes mellitus On: 9-Nyj-839590:10 Request CBC WITH MANUAL DIFF (03771)Indication: Uncontrolled type II diabetes mellitus On: 7-Uer-941345:10 Request METABOLIC PANEL, COMPREHENSIVE (73554)Indication: Benign essential hypertension (Renamed from Benign essential HTN) On: 8-Hrp-717997:09 Request LIPID PANEL (16707)Indication: Other and unspecified hyperlipidemia On: 4-Jme-013475:09 Request TSH (45149)Indication: Acquired hypothyroidism On: 6-Weu-432645:39 Request VITAMIN B-12 (CYANOCOBALAMIN) (08208)Indication: Other vitamin B12 deficiency anemia On: 9-Grz-438367:37 Request HEPATIC FUNCTION PANEL (16046)Indication: Other and unspecified hyperlipidemia On: 4-Owy-867618:36 Request LIPID PANEL (31039)Indication: Other and unspecified hyperlipidemia On: :36 Request Vitamin D Hydroxy (61680)Indication: Vitamin D deficiency, unspecified On: 1-Sbq-964270:36 Request METABOLIC PANEL, COMPREHENSIVE (69802)Indication: Benign essential hypertension (Renamed from Benign essential HTN) On: 6-Yyv-773185:35 Request LIPID PANEL (12820)Indication: Other and unspecified hyperlipidemia On: 3-Jpc-321533:35 Request Vitamin D Hydroxy (84450)Indication: Vitamin D deficiency, unspecified On: 7-Rgz-288280:30 Request Vitamin D Hydroxy (57513)Indication: Vitamin D deficiency, unspecified On: 17-Gah-020745:10 Request MICROALBUMIN: CREATININE RATIO (54066) AND (10782)Indication: Uncontrolled type II diabetes mellitus On: 07-Eoc-114383:07 Request LIPID PANEL (22985)Indication: Other and unspecified hyperlipidemia On: 98-Rip-384220:07 Request TSH (21660)Indication: Acquired hypothyroidism On: 58-Qre-320164:07 Request VITAMIN B-12 (CYANOCOBALAMIN) (09191)Indication: Other vitamin B12 deficiency anemia On: 00-Kxl-281241:42 Request Vitamin D Hydroxy (52425)Indication: Vitamin D deficiency, unspecified On: 94-Vuv-709340:50 Request IRON BINDING CAPACITY (TIBC) (37791)Indication: Iron (Fe) deficiency anemia On: 19-Hiw-281748:50 Request LDH (LD) (LACTATE DEHYDROGENASE) (41116)Indication: Iron (Fe) deficiency anemia On: 88-Voc-628142:50 Request FERRITIN (56614)Indication: Iron (Fe) deficiency anemia On: :50 Request IRON (99207)Indication: Iron (Fe) deficiency anemia On: :50 Request CBC WITH MANUAL DIFF (70645)Indication: Iron (Fe) deficiency anemia On: :50 Request HEPATIC FUNCTION PANEL (44087)Indication: Other and unspecified hyperlipidemia On: :44 Request LIPID PANEL (82954)Indication: Other and unspecified hyperlipidemia On: :44 Request CBC WITH MANUAL DIFF (55948)Indication: Other vitamin B12 deficiency anemia On: :54 Request MICROALBUMIN: CREATININE RATIO (15580) AND (67941)Indication: Glucose intolerance (no malabsorption) On: :54 Request METABOLIC PANEL, COMPREHENSIVE (82203)Indication: HYPERTENSION, NOS On: :54 Request LIPID PANEL (13230)Indication: Other and unspecified hyperlipidemia On: :53 Request VITAMIN B-12 (CYANOCOBALAMIN) (94376)Indication: Other vitamin B12 deficiency anemia On: :53 Request IRON (99467)Indication: Iron (Fe) deficiency anemia On: :53 Request Vitamin D Hydroxy (05717)Indication: Osteopenia On: :49 Request Methylmalonic acid, serum 62907Ypuvwjvnyt: Other vitamin B12 deficiency anemia On: :03 Request VITAMIN B-12 (CYANOCOBALAMIN) (59206)Indication: Other vitamin B12 deficiency anemia On: 78-Kpy-680725:03 Request TSH (33333)Indication: Acquired hypothyroidism On: :03 Request HgA1C , Office (84717)Indication: Abnormal glucose tolerance test On: :06 Request TSH (73852)Indication: Acquired hypothyroidism On: :35 Request LIPID PANEL (71022)Indication: Other and unspecified hyperlipidemia On: :35 Request METABOLIC PANEL, COMPREHENSIVE (77096)Indication: SOB (shortness of breath) on exertion On: :34 Request CBC WITH MANUAL DIFF (49508)Indication: SOB (shortness of breath) on exertion On: 71-Ocp-20753:34 Request TSH (53232)Indication: Acquired hypothyroidism On: 6-Rfz-728180:46 Request Comments: do in 6 weeks TSH (89624)Indication: Acquired hypothyroidism On: 08-Bdg-101496:15 Request Comments: DO IN 6 WEEKS WITH MEDICATION CHANGE TSH (48388)Indication: Other malaise and fatigue On: 17-Rbz-66570:49 Request Iron Binding Capacity (TIBC) (76822)Indication: Iron (Fe) deficiency anemia On: 24-Ymz-854396:43 Request Ferritin (67897)Indication: Iron (Fe) deficiency anemia On: :43 Request Iron (55752)Indication: Iron (Fe) deficiency anemia On: :43 Request HEPATIC FUNCTION PANEL (03158)Indication: Mixed hyperlipidemia On: :42 Request LIPID PANEL (11635)Indication: Mixed hyperlipidemia On: 05-Zio-705774:42 Request Comments: do in 3 months HEPATIC FUNCTION PANEL (85581)Indication: Mixed hyperlipidemia On: 8-Pea-738512:11 Request LIPID PANEL (32593)Indication: Mixed hyperlipidemia On: 9-Leq-164542:11 Request Comments: do in 3 mo TSH (49016)Indication: Acquired hypothyroidism On: :23 Request VITAMIN B-12 (CYANOCOBALAMIN) (21458)Indication: Anemia, unspecified On: :23 Request LDH (LD) (LACTATE DEHYDROGENASE) (68931)Indication: Anemia, unspecified On: :23 Request RETICULOCYTE COUNT MANUL (42621)Indication: Anemia, unspecified On: :23 Request IRON BINDING CAPACITY (TIBC) (39908)Indication: Anemia, unspecified On: :23 Request IRON (96487)Indication: Anemia, unspecified On: :23 Request FOLIC ACID SERUM (46748)Indication: Anemia, unspecified On: :23 Request HAPTOGLOBIN (48537)Indication: Anemia, unspecified On: :23 Request FERRITIN (54766)Indication: Anemia, unspecified On: :23 Request CBC, PLATELETS & AUT DIFF (33847)Indication: Anemia, unspecified On: :23 Request HgA1C , Office ([id number])Indication: Abnormal glucose tolerance test On: 58-Shy-372194:03 Request CBC with manual diff ([id number])Indication: Anemia, unspecified On: :49 Request HgA1C , Office ([id number])Indication: Abnormal glucose tolerance test On: 21-Rlx-162734:30 Request Comments: controlled URINALYSIS W/O MICRO ([id number])Indication: HYPERTENSION, NOS On: :03 Request TSH ([id number])Indication: Acquired hypothyroidism On: : Request MICROALBUMIN URINE QUANT ([id number])Indication: HYPERTENSION, NOS On: 09-Lnr-503844:03 Request METABOLIC PANEL, COMPREHENSIVE ([id number])Indication: HYPERTENSION, NOS On: :03 Request LIPID PANEL ([id number])Indication: HYPERTENSION, NOS On: 45-Jro-169604:03 Request CBC WITH MANUAL DIFF ([id number])Indication: HYPERTENSION, NOS On: 98-Fjw-397682:03 Request Planned Encounters Medical; 3 Week FU - On: 29-Aug-2018 11:15 [facility] Doris Navarro DO, DO, Doris Jay DO Planned Procedures Radiology - Lumbar SpineBy: Melanie On: 24-Jun-2018 Intent Doris KEBEDE DO, Doris Jay DO Aerosol Treatment ([id number])By: On: 14-Apr-2018 Intent Thelma Sofia Comments: Lungs clear after albuterol aerosol treatment Ultrasound - LiverBy: Melanie KEBEDE, On: 21-Nov-2017 Intent Doris Jay DO, DO, Kathleen B 12 Injection, 1000 mcg (J3420)By: On: 21-Nov-2017 Intent Doris Navarro DO, DO, Comments: Vitamin b12 1000mcg injection lot:[id number]:04/2019L DELT IMpt tolerated well CARYN DUMONT DO, Kathleen PHYSICAL THERAPY ([id number])By: [place], On: 28-Oct-2017 Intent Thelma Radiology - Hip - LeftBy: [place], On: 28-Oct-2017 Intent Thelma Aerosol Treatment ([id number])By: Melanie On: 07-Aug-2017 Intent DO, Doris Melanie DO, Doris Comments: more a/e less nois e Melanie DO, Doris Spirometry (00809)By: Melanie KEBEDE, On: 07-Aug-2017 Intent Doris Melanie DO, Doris Melanie Comments: really poor techniq DO, Doris Radiology - Chest- PA and LatBy: On: 07-Aug-2017 Intent Melanie DO, Doris Melanie DO, Doris Melanie DO, Doris IV Needle placement ([id number])By: On: 02-Aug-2017 Intent Melanie DO, Doris Melanie DO, Doris Melanie DO, Doris INFUSION, NORMAL SALINE SOLUTION , On: 02-Aug-2017 Intent 1000 CC (Special Coverage Comments: lot:[id number]:02-26-2019rte:right anticubdose:1000ml given by:david Snow, CARYN Instructions Apply. See MCM: 2048) ([id number])By: Melanie KEBEDE, Doris Melanie DO, Doris Melanie DO, Doris INFUSION, NORMAL SALINE SOLUTION , On: 01-Aug-2017 Intent 1000 CC (Special Coverage Comments: lot:[id number]:02-26-2019rte:IV left anticubdose:1000ml NS given by:david Snow, MASTER OCEAN Instructions Apply. See MCM: 204) (J7030)By: Marcia Britton Aerosol Treatment ([id number])By: Melanie On: 01-Aug-2017 Intent DO, Doris Melanie DO, Doris Comments: more a/e less junky sounding Melanie DO, Doris PNEUM VAC ADLT/IMUMNOSPR, SBC/INTRM On: 25-Apr-2017 Intent ([id number])By: Doris Navarro DO Comments: 0.5cc [place] sq [place] lot [id number] exp 09/05/18 Melanie DO, Doris Melanie DO, Doris INTENSIVE BEHAVIORAL THERAPY TO On: 25-Apr-2017 Intent REDUCE CARDIOVASCULAR DISEASE RISK, INDIVIDUAL, [id number], ANNUAL, 15 MINUTES (G0446)By: Doris Navarro DO, DO, Doris Navarro DO, Doris MARU-CI-OCNM BEHAVIORAL COUNSELING On: 25-Apr-2017 Intent FOR OBESITY, 15 MINUTES (G0447)By: Doris Navarro DO Melanie DO, Doris Melanei DO, Doris B 12 Injection, 1000 mcg (J3420)By: On: 25-Apr-2017 Intent Tali Navarro DOhleen Melanie DO, Comments: 1 ml given lt arm lot [id number] exp 03/15 Doris Jay DO ELECTROCARDIOGRAM, COMPLETE (ECG) On: 25-Apr-2017 Intent ([id number])By: Doris Navarro DO Comments: nsr no acute chg Melanie KEBEDE, Doris Melanie DO, Doris B 12 Injection, 1000 mcg (J3420)By: On: 14-Mar-2017 Intent Doris Navarro DOon DO, Comments: lot [id number] 09/16left [id number] mcgas, [employer]STER OCEAN Doris Melanie DO, Doris B 12 Injection, 1000 mcg (J3420)By: On: 31-Dec-2016 Intent Doris Navarro DO Melanie DO, Comments: [id number], MASTER OCEAN Doris Melanie DO, Doris B 12 Injection, 1000 mcg (J3420)By: On: 20-Sep-2016 Intent Melanie KEBEDE, Doris Melanie DO, Comments: lot:[id number]: 11/13Dose: 1,000 mcgSite: R dltdLocation; IMby:, MASTER OCEAN Doris Melanie DO, Doris Solu- Medrol Injection, 125mg On: 20-Aug-2016 Intent (J2930)By: Doris Navarro DO Comments: lot: [id number]: 01/14site/route: LGM/IMamt:2mLVIS signed when applicableChelsea, QUALITY ASSURANCE ASSESSOR Melanie DO, Doris Melanie DO, Doris Aerosol Treatment ([id number])By: Melanie On: 20-Aug-2016 Intent DO, Doris Melanie DO, Doris Comments: albulterol 0.83%relistedned nad more a/e less noise Melanie DO Doris B 12 Injection, 1000 mcg (J3420)By: On: 20-Aug-2016 Intent Melanie DO, Doris Melanie DO, Comments: lot: [id number]: ite/route: L del/IMamt: 1mLVIS signed when applicableChelsea, [facility] Doris Melanie DO, Doris Spirometry (86076)By: Melanie DO, On: 16-Aug-2016 Intent Doris Melanie DO, Doris Melanie Comments: ok stable - DO, Doris Aerosol Treatment ([id number])By: Melanie On: 16-Aug-2016 Intent DO, Doris Melanie DO, Doris Comments: albulterol 0.83%more a.e stil some niose in RUL -- junky and easy to cough Melanie DO, Doris Solu- Medrol Injection, 125mg On: 16-Aug-2016 Intent (J2930)By: Melanie DO Doris Comments: lot [id number] mgright gm, IMas MASTER OCEAN Melanie DO, Doris Melanie DO, Doris B 12 Injection, 1000 mcg (J3420)By: On: 20-Jul-2016 Intent Melanie DO Doris Melanie DO, Comments: B12lot:6202exp:ite:rt deltroute:IMdose:1mlD.HAY Valentin Doris Melanie DO, Doris Solu- Medrol Injection, 125mg On: 20-Jul-2016 Intent (J2930)By: Emlanie DO Doris Comments: lot: [id number]: 01/14site/route: RGM/IMamt: 2mLVIS signed when applicableChelsea, QUALITY ASSURANCE ASSESSOR Melanie DO, Doris Melanie DO, Doris Aerosol Treatment ([id number])By: Melanie On: 20-Jul-2016 Intent DO, Doris Melanie DO, Doris Comments: less wheeze good a/e- less irritability with breathing Melanie DO, Doris Radiology - Chest- PA and LatBy: On: 20-Jul-2016 Intent Melanie DO, Doris Melanie DO, Doris Melanie DO, Doris Spirometry ([id number])By: Melanie DO, On: 20-Jul-2016 Intent Doris Melanie DO, Doris Melanie Comments: mild restriction =- poor curve and technique DO, Doris ELECTROCARDIOGRAM, COMPLETE (ECG) On: 20-Jul-2016 Intent ([id number])By: Doris Navarro DO Comments: sinus braden no acute chg Melanie DO, Doris Melanie DO, Doris B 12 Injection, 1000 mcg (J3420)By: On: 29-May-2016 Intent Melanie DO, Doris Melanie DO, Comments: Lot:[id number]:11/13Dose:1mlRoute:IMSite:r armGiven By:SAADIA signed Doris Melanie DO, Doris Flu Vaccine (Quadrivalent) [id number]: On: 29-May-2016 Intent Melanie DO, Doris Melanie DO, Comments: Lot:[id number]:01/25/17Dose:0.5mLRoute:IMSite:L DltdGiven By:SAADIA signed Doris Melanie DO, Doris B 12 Injection, 1000 mcg (J3420)By: On: 21-May-2016 Intent Melanie DO, Doris Melanie DO, Doris Melanie DO, Doris B 12 Injection, 1000 mcg (J3420)By: On: 18-May-2016 Intent Melanie DO, Doris Melanie DO, Comments: B12lot:[id number]:ite:rt deltroute:IMdose:1mlD.HAY Valentin Doris Melanie DO, Doris B 12 Injection, 1000 mcg (J3420)By: On: 11-May-2016 Intent Melanie DO, Doris Melanie DO, Comments: lot [id number] mcgleft dltdas, [employer] OCEAN Doris Melanie DO, Doris B 12 Injection, [...] ite/route: R del/IMamt: 1mLVIS signed when applicableChelsea, QUALITY ASSURANCE ASSESSOR Doris Melanie DO, Doris B 12 Injection, 1000 mcg (J3420)By: On: 13-Apr-2016 Intent Mckinley Valentin Comments: B12lot:[id number]:ite:lt deltroute:IMdose:1mlD.HAY Valentin INTENSIVE BEHAVIORAL THERAPY TO On: 09-Apr-2016 Intent REDUCE CARDIOVASCULAR DISEASE RISK, INDIVIDUAL, [id number]-GC-[id number], ANNUAL, 15 MINUTES (G0446)By: Melanie DO, Doris Melanie DO, Doris Melanie DO, Doris YZUD-AS-PHJY BEHAVIORAL COUNSELING On: 09-Apr-2016 Intent FOR OBESITY, 15 MINUTES (G0447)By: Melanie DO, Doris Melanie DO, Doris Melanie DO, Doris MAMMOGRAM, SCREENING, BOTH BREAST On: 09-Apr-2016 Intent ([id number])By: Melanie DO, Doris Melanie DO, Doris Melanie DO, Doris DEXA SCAN AXIAL SKELETON ([id number])By: On: 09-Apr-2016 Intent Melanie DO, Doris Melanie [...] (J3420)By: On: 07-Feb-2016 Intent Melanie DO, Doris Melanei DO, Comments: Lot:[id number]:10/2017Dose:1mlRoute:IMSite:l armGiven By:SAADIA signed Doris Navarro DO, Doris B 12 Injection, 1000 mcg (J3420)By: On: 26-Jan-2016 Intent Doris Navarro DO, DO, Comments: B12lot:5200exp:05/14site:lt deltroute:IMdose:1mlD.HAY Valentinon DO, Doris Echo CompleteBy: Fast DO, Maggie [...] Comments: Lot:[id number]:04/14Dose:1mlRoute:IMSite:l armGiven By:SAADIA signed Aerosol Treatment ([id number])By: Alexy On: 03-Aug-2015 Intent DO, Maggie A B 12 Injection, 1000 mcg (J3420)By: On: 17-May-2015 Intent Fast DO Maggie A Comments: Lot:[id number]:11/12Dose:1mlRoute:IMSite:l armGiven By:SAADIA signed Flu Vaccine (Quadrivalent) 52864Xf: On: 17-May-2015 Intent Fast DO, Maggie A Comments: lot [id number]: 01/26/2016site/route L sol, IMamt 0.5mlVIS and ABN signed when applicableChelsyaquelin CMAFM4 ADMINISTRATION OF INFLUENZA VIRUS On: 17-May-2015 Intent VACCINE (G0008)By: Alexy KEBEDE Maggie A B 12 Injection, 1000 mcg (J3420)By: On: 15-Feb-2015 Intent Kanika Georges Comments: Lot:[id number]:11.16Route:IMSite:R deltoidDose: 1 mLgiven by: Kanika Georges CMA DANIEL (Ankle Brachial Index) On: 08-Feb-2015 Intent ([id number])By: Maggie Tracey DO Radiology - Lumbar SpineBy: Alexy KEBEDE, On: 08-Feb-2015 Intent Maggie Armstrong Ultrasound - ThyroidBy: Alexy KEBEDE, On: 09-Nov-2014 Intent Maggie A B 12 Injection, 1000 mcg (J3420)By: On: 09-Nov-2014 Intent Maggie Tracey DO A Comments: lot [id number] mcgleft dltdIMas, MASTER OCEAN Radiology - Chest- PA and LatBy: On: 13-Sep-2014 Intent Maggie Tracey DO A Comments: call stat Pulse Oximetry ([id number])By: Alexy KEBEDE, On: 13-Sep-2014 Intent Maggie A Comments: 97% Inhaler Demonstration (88437)By: On: 07-Sep-2014 Intent Kimberley Loyd CNP Radiology - Chest- PA and LatBy: On: 14-Jul-2014 Intent Maggie Tracey DO A Comments: call rsults Spirometry (35000)By: Alexy KEBEDE, On: 14-Jul-2014 Intent Maggie A Comments: good effort and curve mild rest /obst Prevnar 13 (65588)By: Alexy KEBEDE, On: 30-Jun-2014 Intent Maggie A Comments: lot [id number] 09/2015location L armroute imgiven by - msmithVIS and/or ABN signed MAMMOGRAM, SCREENING, BOTH BREAST On: 14-Apr-2014 Intent ([id number])By: Maggie Tracey DO A B 12 Injection, 1000 mcg (J3420)By: On: 14-Apr-2014 Intent Maggie Tracey DO A Comments: Lot #:[id number] date:mount given:1mlRoute: IMSite given: left deltoidGiven by: HAY Zavala Cartoid DopplerBy: Maggie Tracey DO On: 14-Apr-2014 Intent Eprescribed prescriptions (G8553)By: On: 07-Oct-2013 Intent Camelia Tracey DOa A DXA, BONE DENSITY, AXIAL SKELETON On: 20-Jul-2013 Intent (68597)By: Maggie Tracey DO Comments: aug Pelvic and Breast, Medicare On: 20-Jul-2013 Intent (G0101)By: Maggie Tracey DO Cartoid DopplerBy: Camelia Tracey DOa A On: 07-Jul-2013 Intent Eprescribed prescriptions (G8553)By: On: 07-Jul-2013 Intent Raiza Ortiz FLU VAC, SPLIT, >3 YEARS, INTRAMUSC On: 04-May-2013 Intent (65973)By: Maritza Cantor Comments: lot [id number] 2014site/route L sol, IMamt 0.5mlVIS and ABN signed when applicableChels, [facility] ADMINISTRATION OF INFLUENZA VIRUS On: 04-May-2013 Intent VACCINE (G0008)By: aMritza Cantor Radiology - Hip - LeftBy: Alexy KEBEDE, On: 07-Apr-2013 Intent Maggie Armstrong Eprescribed prescriptions (G8553)By: On: 07-Apr-2013 Intent Raiza Ortiz Eprescribed prescriptions (G8553)By: On: 05-Jan-2013 Intent Raiza Ortiz Spirometry (73926)By: Alexy KEBEDE, On: 01-Dec-2012 Intent Maggie A Comments: good effort and curve normal Radiology - Chest- PA and LatBy: On: 01-Dec-2012 Intent Maggie Tracey DO Comments: stat call wet read Eprescribed prescriptions (G8553)By: On: 01-Dec-2012 Intent Raiza Ortiz Pulse Oximetry (55096)By: Angel, On: 01-Dec-2012 Intent Raiza Comments: 98% Eprescribed prescriptions (G8553)By: On: 27-Nov-2012 Intent Melanie DO, Doris Melanie DO, Doris Melanie DO, Doris MAMMOGRAM, SCREENING, BOTH BREASTS On: 29-Sep-2012 Intent (60092)By: Maggie Tracey DO EKG (02281)By: Raiza Ortiz On: 29-Sep-2012 Intent Comments: ekg- 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 axis and no acute st t wave changes Eprescribed prescriptions (G8553)By: On: 29-Sep-2012 Intent Raiza Ortiz Eprescribed prescriptions (G8553)By: On: 03-Sep-2012 Intent Raiza Ortiz Eprescribed prescriptions (G8553)By: On: 30-Jul-2012 Intent Raiza Ortiz B 12 Injection, 1000 mcg (J3420)By: On: 23-Jun-2012 Intent Alexy KEBEDE Maggie A Comments: Lot:[id number]:Dose:1mlRoute:IMSite:L armGiven By:SAADIA signed Eprescribed prescriptions (G8553)By: On: 23-Jun-2012 Intent Raiza Ortiz 12 Injection, 1000 mcg (J3420)By: On: 25-Mar-2012 Intent Maricruz Rivera LPN Comments: Lot #[id number]-06/10Site-right deltoidDose-1 mlgiven by: Dani Rivera LPN Eprescribed prescriptions (G8553)By: On: 25-Mar-2012 Intent Maggie Tracey DO FLU VAC, SPLIT, >3 YEARS, INTRAMUSC On: 25-Mar-2012 Intent ([id number])By: Patsy Leslei LPN Comments: Lot/Exp: [id number], 12/2011Given in L Dltd, IMPrefilled SyringeBy CARYN Garner ADMINISTRATION OF INFLUENZA VIRUS On: 25-Mar-2012 Intent VACCINE (G0008)By: Patsy Leslie LPN Echo CompleteBy: Alexy KEBEDE Maggie A On: 07-Dec-2011 Intent B 12 Injection, 1000 mcg (J3420)By: On: 07-Dec-2011 Intent [address] LPN CT - OtherBy: Alexy KEBEDE Maggie A On: 03-Oct-2011 Intent Comments: get cta of carotid arteries TDAP VACCINE >7 IM (13401)By: On: 03-Oct-2011 Intent Raiza Ortiz B 12 Injection, 1000 mcg (J3420)By: On: 07-Sep-2011 Intent Raiza Ortiz Comments: Lot #[id number]-07/09Site-left deltoidDose-1 mlgiven by: Dani Rivera LPN Cartoid DopplerBy: Alexy KEBEDE Maggie A On: 07-Sep-2011 Intent Comments: in september DXA, BONE DENSITY, AXIAL SKELETON On: 07-Sep-2011 Intent ([id number])By: Maggie Tracey DO MAMMOGRAM, SCREENING, BOTH BREASTS On: 07-Sep-2011 Intent ([id number])By: Maggie Tracey DO Aerosol Treatment (16849)By: Evert On: 08-Aug-2011 Intent Kimberley LOVE EKG (00560)By: Raiza Ortiz On: 06-Jun-2011 Intent Comments: ekg showed normal sinus rhythym, left axis, no acute st/t wave changes DXA, BONE DENSITY, AXIAL SKELETON On: 06-Jun-2011 Intent (31673)By: Maggie Tracey DO FLU VAC, SPLIT, >3 YEARS, INTRAMUSC On: 11-May-2011 Intent (52044)By: Maricruz Rivera LPN Comments: Lot #[id number]-left deltoidgiven by: Dani Rivera LPN B 12 [...] Intent Maggie Tracey DO Comments: Lot #:[id number] date:11/2012Amount given:1mlRoute: IMSite given:left deltoidGiven by: HAY Zavala Cartoid DopplerBy: Maggie Tracey DO On: 24-Oct-2010 Intent Pap Smear, Medicare (Q0091)By: On: 05-Sep-2010 Intent Raiza Ortiz Pelvic and Breast, Medicare On: 05-Sep-2010 Intent (G0101)By: Raiza Ortiz PNEUM VAC ADLT/IMUMNOSPR, SBC/INTRM On: 03-Jul-2010 Intent (97820)By: Maggie Tracey DO Comments: Lot #[id number]//Site-left deltoidDose- 0.5mlgiven by:GAL ADMINISTRATION OF PNEUMOCOCCAL On: 03-Jul-2010 Intent VACCINE (G0009)By: Maggie Tracey DO MAMMOGRAM, SCREENING, BOTH BREASTS On: 03-Jul-2010 Intent (65166)By: Maggie Tracey DO B 12 Injection, 1000 mcg (J3420)By: On: 20-Jun-2010 Intent Maggie Tracey DO Comments: Lot #[id number]-12/07Site-left deltoidDose-1 mlgiven by:[facility] B 12 Injection, 1000 mcg (J3420)By: On: 10-May-2010 Intent Apoorva Calle Comments: Lot:[id number]:12/07Dose:1000mcg/1mlRoute:IMSite:right deltoid Given by: HAY Birch FLU VAC, SPLIT, >3 YEARS, INTRAMUSC On: 10-May-2010 Intent (38595)By: Apoorva Calle Comments: Lot:[id number] 4PExp:10/2010Dose:0.5mlRoute:IMSite:Left Deltoid Given by: HAY Birch ADMINISTRATION OF INFLUENZA VIRUS On: 10-May-2010 Intent VACCINE (G0008)By: Apoorva Calle Doppler Ultrasound OtherBy: Alexy KEBEDE, On: 12-Apr-2010 Intent Maggie A Comments: both legs stat- left leg swelling- call wet read Spirometry (95535)By: Alexy KEBEDE, On: 12-Apr-2010 Intent Maggie A Comments: good effort and curve normal B 12 Injection, 1000 mcg (J3420)By: On: 05-Apr-2010 Intent Maggie Tracey DO Ultrasound - GallbladderBy: Alexy KEBEDE, On: 01-Feb-2010 Intent Maggie A IV Needle placement (48819)By: On: 10-Jan-2010 Intent Ana Guzman Comments: IV 22 gauge inserted in right antecubital on first attempt and 0.9 NSS running without difficulty-AW INFUSION, NORMAL SALINE SOLUTION , On: 10-Jan-2010 Intent 1000 CC (Special Coverage Instructions Apply. See MCM: 2049) (J7030)By: Kimberley Loyd CNP THER/PROPH/DIAG INJ, SC/IM On: 10-Jan-2010 Intent (61235)By: Kimberley Loyd CNP Radiology - Knee - Right - Weight On: 03-Jan-2010 Intent BearingBy: Maggie Tracey DO EKG (03303)By: Raiza Ortiz On: 03-Jan-2010 Intent Comments: ekg showed normal sinus rhythym, left axis, no acute st/t wave changes Aerosol Treatment (31077)By: Evert On: 19-Oct-2009 Intent Kimberley LOVE Cartoid DopplerBy: Maggie Tracey DO On: 14-Jun-[address] - Brain/HeadBy: Maggie Tracey DO On: 06-Jun-2009 Intent MAMMOGRAM, SCREENING, BOTH BREASTS On: 06-Jun-2009 Intent (62713)By: Maggie Tracey DO DXA, BONE DENSITY, AXIAL SKELETON On: 06-Jun-2009 Intent (65831)By: Maggie Tracey DO FLU VAC, SPLIT, >3 YEARS, INTRAMUSC On: 12-May-2009 Intent (02524)By: Maricruz Rivera LPN Comments: Lot #[id number]-left deltoidgiven by:[facility] ADMINISTRATION OF INFLUENZA VIRUS On: 12-May-2009 Intent VACCINE (G0008)By: Maricruz Rivera LPN Radiology - Hand - RightBy: Alexy KEBEDE, On: 26-Jan-2009 Intent Maggie A Radiology - Wrist - RightBy: Fast On: 26-Jan-2009 Intent Maggie KEBEDE Comments: call wet read Pulse Oximetry (50320)By: Alexy KEBEDE, On: 27-Dec-2008 Intent Maggie Armstrong Comments: 98 Inhaler Demo (21130)By: Alexy KEBEDE, On: 27-Dec-2008 Intent Maggie A Spirometry (92244)By: Alexy KEBEDE, On: 27-Dec-2008 Intent Maggie Armstrong Comments: good effort and curve has small airways diminished Radiology - Chest- PA and LatBy: On: 27-Dec-2008 Intent Maggie Tracey DO Echo CompleteBy: Maggie Tracey DO A On: 08-Nov-2008 Intent Comments: elevated bp - increase patricia EKG (46898)By: Maggie Tracey DO On: 08-Nov-2008 Intent Comments: ekg showed normal sinus rhythym, leftl axis, no acute st/t wave changes rsr unchanged Bio Z (48599)By: Maggie Tracey DO On: 08-Nov-2008 Intent Inhaler Demo (40277)By: Melanie KEBEDE, On: 02-Sep-2008 Intent Doris Melanie DO, Doris Melanie DO, Doris Aerosol Treatment (86389)By: Melanie On: 02-Sep-2008 Intent Doris KEBEDE Melanie DO Doris Comments: less echoey -- better less cough Doris Navarro DO EKG (61131)By: Doris Navarro DO On: 16-Dec-2007 Intent Tali Navarro DOhleen Melanie , Comments: NSR NO ACUTE CHANGES Doris B 12 Injection, 1000 mcg (J3420)By: On: 13-Nov-2007 Intent Thelma Khan LPN Comments: 1000mcg/ml 1 ml given im lt dltd lot [id number] exp 07-06. Pt tolerated well. B 12 Injection, 1000 mcg (J3420)By: On: 30-Jul-2007 Intent Tali Navarro DOhleen Melanie DO, Doris Melanie DO, Doris EXCISION BGN LSN TRNK/ARM/LEG On: 09-Jul-2007 Intent 0.6-1.0 CM (43011)By: Kimberley Loyd CNP BIOPSY OF SKIN LESION, SINGLE On: 09-Jul-2007 Intent (02625)By: Kimberley Loyd CNP SHAVE SKIN LESION, TRUNK/ARM/LEG On: 02-Jul-2007 Intent (58753)By: Kimberley Loyd CNP BIOPSY OF SKIN LESION, SINGLE On: 02-Jul-2007 Intent (06093)By: Evert LOVE Kimberley Poe B 12 Injection, 1000 mcg (J3420)By: On: 02-Jul-2007 Intent Jesus RUBIN, Lashonda FLU VAC, SPLIT, >3 YEARS, INTRAMUSC On: 04-Jun-2007 Intent (69624)By: Jing Cabello RN Comments: Lot #: [id number] date: 01/03Amount given: 0.5 MLRoute: IMSite given: Left deltoidGiven by: Nathaniel Beal LPN IMMUNIZ ADMNIN, 1 VAC, SNGL/COMBO On: 04-Jun-2007 Intent (20985)By: Jing Cabello RN B 12 Injection, 1000 [...] (J3420)By: On: 11-Mar-2007 Intent Melanie DO, Doris Navarro DO, Comments: CHANGE TO MONTHLY NOWOUT OF [...] DO, Doris Melanie DO, Doris IV Infusion (28636)By: Melanie DO, On: 18-Oct-2006 Intent Doris Melanie DO, Doris Melanie DO, Doris EKG (83417)By: Melanie DO Doris On: 10-Oct-2006 Intent Melanie DO, Doris [...] MCG/ML Injection Solution Ordered: 07-Feb-2011 Pending Thelma Kahn LPN Vitamin B-12 1000 MCG/ML Injection Solution Ordered: 05-Mar-2011 Pending Fast DO, Maggie A Vitamin B-12 1000 MCG/ML Injection Solution Ordered: 11-May-2011 Pending Miguel GILBERTN, Maricruz Vitamin B-12 1000 MCG/ML Injection Solution Ordered: 07-Sep-2011 Pending Raiza Ortiz Vitamin B-12 1000 MCG/ML Injection Solution Ordered: 07-Dec-2011 Pending Patsy Leslie LPN Vitamin B-12 1000 MCG/ML Injection Solution Ordered: 25-Mar-2012 Pending Hluszti MASTER OCEAN, Maricruz Vitamin B-12 1000 MCG/ML Injection Solution [...] 1000 MCG/ML Injection Solution Ordered: 26-Jan-2016 Pending Melaine DO, Doris Melanie DO, Doris Melanie DO, [...] The patient does have durable power of united states attorney and living will. Other providers contributing [...] 13 steps at home. I was at [facility] for 3 days in ICU I broke [...] The patient does have durable power of united states attorney and living will. The patient has [...] and she off pravastatin and went to [place] and now on 5 mg of crestor- and tolerated she got leg pain and weakness on pravachol- - she got good [facility] on [facility] in [place]- --bp is good and cough gone and [...] The patient does have durable power of united states attorney and living will. The damián ent [...] since going to the urgent care at [facility]- on atb yet but will finish [...] feels good- bp is great- went to [facility] for vascular check and said [...] stroke sx mood controlled has followup in [facility] for vascular issues soon- no chest [...] compliant with instructions. Current medication use: no itm End: 08-Oct-2013 22:19 e effects, compliant with [...] The patient does have durable power of united states attorney and living will. The patient has [...] (268.9) [facility] Phone Encounter On: 8-Nov-2013 15:03 Encounter Diagnosis: Unspecified Diagnosis End: 05-Jun-2013 [...] not home- no gerd - went to [place] for artery checks and doing ok there- [...] laboratory test results: she went back to [facility] Saw Dr Shruthi Quinones- ??head of [...] ER visit: note: (stroke she was at [facility] x 5days released on saturday05/22/12 to 05/27/12). The patient feels well with minor complaints, has decreased energy End: 29-May-2012 14:12 level and is sleeping well. Patient has been compliant with instructions. Current medication use: compliant with dosing regimen. Patient sleeps 7 hours per night. Nutrition: balanced diet and supplement al vitamins. Note for Follow up hospital: [facility] Diagnosis: CVA (434.91), Benign essential hypertension (401.1), Diabetes type II,controlled no comp (250.00), Hypothyroidism (244.9), Carotid stenosis (433.10) [facility] Office Visit On: 22-May-2012 10:33 Encounter Reason: Follow up hospital - Reason for ER visit: note: (TIA. ??Patient was seen by [facility] ER x 3 times last week and then sent to [facility] for psych eval.). The patient [...] doing routine exrcise- she has membership to [employer]- ec[employer]- no gerd- mood pretty good, [ADDITIONAL [...] - she feels better- she started at [employer] and weight down 9 pounds alreadyand bp [...] refuses sleep stduy and is aware of transplant coordinator side effects of not doing- ie heart [...] of stressors). The pa End: 10-Oct-2006 17:02 tiemona's appetite is normal. Nutrition: normal/adequate. Normal bowel and bladder habits. Current emotional problems include depression. Encounter Diagnosis: Abnormal Glucose Tolerance Test (790.22), Hypothyroidism (244.9), HYPERTENSION, NOS (401.9) , Heart murmur (785.2), Abnormal EKG(794.31) [facility] Payers [place]/Medicare Adv planMedicareMaricruz Ritchie; a guarantor
--- OUTSIDE RECORDS SUMMARY | 2018-10-18 12:38 | XMS RPT_ITS | Continuity of Care Document ---
:1940 Author Organization [facility] Address [address] [facility] [address] [place] [address] Phone Care Team Providers Name Role Phone Doris Navarro DO Unavailable Camacho Serrano Unavailable Flakito Morales Unavailable [facility], [facility] Unavailable Marcello Stein Unavailable Sal Urrutia [...] artery stenosis (I65.23, 433.10) Comments: goes to [facility] yearly to follow Status: Active Bilateral sciatica [...] related to fatty liver -- did nutrition licensed mental health counselor and wt loss / metformin and [...] KathleenFearon DO, Kathleen Start : 24-Jul-2018 Active Comments:uibhmB70.90 TraZODone HCl 100 MG Oral Tablet 1-1/2 [...] Start : 26-Sep-2016 End : 12-Dec-2017 Inactive Dexter 5-325 MG Oral Tablet 1 q 4hrs [...] qd for 0 days Refills: 0 Ordered:08-Nov-2008 aRiza Ortiz End : 08-Nov-2008 Inactive SKELAXIN, 800MG [...] : 07-Sep-2014 End : 13-Sep-2014 Discontinued ERGOCALCIFEROL, 70091CRJC (Oral Capsule) 1 (one) Capsule q week [...] End : 23-Jun-2012 Discontinued VITAMIN D (ERGOCALCIFEROL), 03401ILZZ (Oral Capsule) 1 Capsule q week for 0 days Quantity: 12 {Capsule} Refills: 2 Ordered:19-Aug-2015 Raiza Ortiz Start : 07-Apr-2013 End : 19-Aug-2015 Discontinued VITAMIN D, 16366OAKQ (Oral Capsule) 1 (one) Capsule q week [...] Comments: See Note; NOTES: [facility] Medical Records Department [address] [place] [address] Discharge Instruction 07/16/18 1405 MR#: [id number] Acct: [id number] Name: CLIFFORD CRUZMARICRUZ Davidson Rep #: [id number] : 1940 78 From: Johnnie Baez MD [...] Primary Care Pro vider. Call Doctors Registry ([phone]) or report to the closest Emergency Room. Call 911 if necessary. 07/16/18 1167 <Electronically signed by Johnnie Baez MD> Date Johnnie Baez MD Cosigner Signature (If Indicated): Date CC: oDris Navarro 16-Jul-2018 Emergency Department Summary Result: Comments: See Note; NOTES: [facility] Medical Records Department [address] [place] [address] Emergency Department Summary 07/16/18 1249 MR#: [id number] Acct: [id number] Name: MARICRUZ GRIGSBY Rep #: [id number] : 1940 78 From: Johnnie Baez MD PCP: Doris Navarro DO Status: DEP ER - ER Visit Summary Date of Service: 07/16/18 Chief Complaint: Nausea, vomit ing and diarrhea. History of Present Illness: The patient is a 78 F past medical history of prior stroke, hypertension fco-ytpdndf-usozidmgu diabetes. Patient states last 3-4 days she [...] secondary to viral gastroenteritis History of no b-cdfaxoc-idgjsjpeu diabetes. This note was generated with [employer] dictation software. It may contain incorrect words, [...] your Primary Care Provider. Call Doctors Registry ([phone]) or report to the closest Emergency Room. Call 911 if necessary. 07/16/18 1647 <Electronically signed by Johnnie Baez MD> Date Johnnie Baez MD Cosigner Signature ( If Indicated): Date CC: Doris Navarro DO 24-Jun-2018 L/S Spine Min 4 Views Result: Comments: See Note; NOTES: [facility] Imaging Services [address] [place] [address] L/S Spine Min 4 Views MR#: [id number] Acct: [id number] Name: MARICRUZ GRIGSBY Rep # : [id number] : 1940 F 78 From: Mack Soni MD PCP: Doris Navarro DO Status: REG CLI Study: L/S Spine Min 4 Views Date of Exam: 06/24/18 Exam# [id number] Ordering Dr: Doris Navarro DO SANDI DY: [...] Service support , CC: Doris Navarro DO Solar Engineer: Signed 14-May-2018 Emergency Department Summary Result: Comments: See Note; NOTES: [facility] Medical Records Department [address] [place] [address] Emergency Department Summary 05/14/18 0908 MR#: [id number] Acct: [id number] Name: MARICRUZ GRIGSBY Rep #: [id number] : 1940 78 From: Zee Denise MD [...] family doctors she is re ferred to [facility] for the shoulder injury and she will return for change in symptoms and she is comfortable with this plan Treatment Plan: [] Disposition: [] Stable home Impression: [] Fall left rib fracture, left shoulder injury This note was generated with [employer] dictation software. It may contain incorrect words, spelling, and punctuation that were not noted in review of the [facility] rt prior to signing ED Disposition - Plan for ED Patient: Chief Complaint: Fall Referrals: Doris Navarro, DO [Primary Care Provider] - What to do if you have Problems For any increased pain, sh ortness of breath, bleeding, nausea or vomiting, chest pain, or any unexpected problems, contact your Primary Care Provider. Call Doctors Registry ([phone]) or report to the closest Emergency Room. Call 911 if necessary. 05/14/18 1530 <Electronically signed by Zee Denise MD> Date Zee Denise MD Cosigner Signatur e (If Indicated): Date CC: Doris Navarro DO 14-May-2018 Discharge Instruction Result: Comments: See Note; NOTES: [facility] Medical Records Department [address] [facility] [place] [address] Discharge Instruction 05/14/18 1133 MR#: [id number] Acct: [id number] Name: CLIFFORD HOBBSFADUMOMARICRUZ L Rep #: [id number] : 1940 78 From: Zee Denise MD PCP: Doris Navarro DO Status: REG ER ED Disposition - Plan for ED Patient: Chief Complaint: Fall Instructions: ED M echanical Fall, ED Fx Rib, ED Sprain Shoulder, ED Sling Prescriptions: Hydrocodone Bitart/Apap 5-325 [Dexter 5MG-325MG] 1 tab PO Q6H PRN PRN 3 Days #10 tab PRN Reason: Pain Referrals: Doris Navarro DO [Primary Care Provider] - What to do if you have Problems For any increased pain, shortness of breath, bleeding, nausea or vomiting, chest pain, or any unexpected problems, contact your Primary Car e Provider. Call Doctors Registry ([phone]) or report to the closest Emergency Room. Call 911 if necessary. 05/14/18 1134 <Electronically signed by Zee Denise MD> Date ___ Zee Denise MD Cosigner Signature (If Indicated): Date CC: Doris Navarro DO 14-May-2018 Chest PA and Lateral Result: Comments: See Note; NOTES: [facility] Imaging Services [address] [place] [address] Chest PA and Lateral MR#: [id number] Acct: [id number] Name: MARICRUZ GRIGSBY Rep #: [id number] : 1940 F 78 From: Teo Wayne MD PCP: Doris Navarro DO Status: REG ER Study: Chest PA and Lateral Date of Exam: 05/14/18 Exam# [id number] Ordering Dr: Zee Denise MD STUDY: X-RAY [...] Teo Wayne MD at 10:11 EDT Tel [phone], [employer] e support , CC: MD Sonam Denise; Doris Navarro DO Solar Engineer: Signed 14-May-2018 Elbow min 3 Views Result: Comments: See Note; NOTES: [facility] Imaging Services [address] [place] [address] Elbow min 3 Views MR#: [id number] Acct: [id number] Name: MARICRUZ GRIGSBY Rep #: [id number] : 1940 F 78 From: Teo Wayne MD PCP: Doris Navarro DO Status: REG ER Study: Elbow min 3 Views Date of Exam: 05/14/18 Exam# [id number] Ordering Dr: Zee Denise MD STUD Y: [...] Teo Wayne MD at 10:12 EDT Tel [phone], Service support , CC: MD Sonam Denise; Doris Navarro DO Solar Engineer: Signed 14-May-2018 Shoulder min 2 Views Result: Comments: See Note; NOTES: [facility] Imaging Services [address] [place] [address] Shoulder min 2 Views MR#: [id number] Acct: [id number] Name: MARICRUZ GRIGSBY Rep #: [id number] : 1940 F 78 From: Teo Wayne MD PCP: Doris Navarro DO Status: REG ER Study: Shoulder min 2 Views Date of Exam: 05/14/18 Exam# [id number] Ordering Dr: Zee Denise MD STUDY: X-RAY [...] Wayne MD at 11:02 EDT Tel [phone], Service support , CC: MD Sonam Denise; Doris Navarro DO Solar Engineer: Signed 06-Feb-2018 History and Physical Exam Result: Comments: See Note; NOTES: [facility] Medical Records Department [address] [place] [address] History and Physical 02/06/182050 MR#: [id number] Acct: [id number] Name: MARICRUZ GRIGSBY Anuel Rep #: [id number] : 1940 77 From: María Barnes MD [...] cholecystectomy Psychiatric History: No pertinent psych hx SQUAD BOSS History: No pertinent SQUAD BOSS history Lives: Spouse/ Significant Other Smoking Status: [...] Subcu heparin. This note was generated with [employer]oreseller[employer] software. It may contain incorrect words, spelling, and punctuation that were not noted in checking the note before signing. Code Visit OBSV E AND M: 01060 Initial observation care L3 8 2108 <Electronically signed by María Barnes MD> Date María Barnes MD Cosigner Signature: Date (if applicable) CC: María Barnes; Doris Navarro DO Signed 06-Feb-2018 Brain/Head without Contrast Result: Comments: See Note; NOTES: [facility] Imaging Services [address] [place] [address] Brain/Head without Contrast MR#: [id number] Acct: [id number] Name: MARICRUZ GRIGSBY Rep #: [id number] : 1940 F 77 From: Renata Lee MD PCP: Doris Navarro DO Status: [facility] Study: Brain/Head without Contrast Date of Exam: 02/06/18 Exam# [id number] Ordering Dr: Cameron Marte MD STUDY: CT [...] , CC: Doris Navarro DO; Jered Marte Solar Engineer: Signed 06-Feb-2018 Chest 1 View Result: Comments: See Note; NOTES: [facility] Imaging Services [address] [address] Chest 1 View MR#: [id number] Acct: [id number] Name: MARICRUZ GRIGSBY Rep #: [id number] : 1940 F 77 From: Renata Lee MD PCP: Doris Navarro DO Status: REG ER Study: Chest 1 View Date of Exam: 02/06/18 Exam# [id number] Ordering Dr: Jered Marte MD STUDY: X-RAY [...] , Service support , CC: Doris Marte Solar Engineer: Signed 25-Nov-2017 Liver Result: Comments: See Note; NOTES: [facility] Imaging Services [address] [place] [address] Liver MR#: [id number] Acct: [id number] Name: MARICRUZ GRIGSBY Rep #: [id number] : 1940 F 77 From: Mack Hand MD PCP: Doris Navarro DO Status: REG CLI Study: Liver Date of Exam: 11/25/17 Exam# [id number] Ordering Dr: Doris Navarro DO STUDY: ABDOMINAL [...] MD at 12:34 EDT , Service support [phone], CC: Doris Navarro DO Solar Engineer: Signed 29-Oct-2017 Hip 2-3 Views with Pelvis Result: Comments: See Note; NOTES: [facility] Imaging Services [address] [place] [address] Hip 2-3 Views with Pelvis MR#: [id number] Acct: [id number] Name: CLIFFORD CRUZMARICRUZ L R ep #: [id number] : 1940 F 77 From: Benji Finch PCP: Doris Navarro DO Status: REG CLI Study: Hip 2-3 Views with Pelvis Date of Exam: 10/29/17 Exam# [id number] Ordering Dr: Thelma Sofia STUDY: X-RAY - [...] , CC: QUINN Sofia; Doris Navarro DO Solar Engineer: Signed 27-Aug-2017 12 Lead Electrocardiogram Result: Comments: See Note; NOTES: [facility] Cardiovascular Services [address] [place] [address] 12 Lead EKG 08/24/171718 MR#: [id number] Acct: [id number] Name: PORTIA GRIGSBY Rep #: [id number] : 1940 77 From: Maurilio Meraz MD Attending Dr: Status: DEP ER Ordering Dr: Zee eDnise MD Date: 08/24/17 Location: ED Sex: F [...] onfirmed by SOLEDAD STREETER, MAURILIO ([id number]), editor in chief newspaper STACY CARTER (57) on 08/27/2017 10:37:34 AM Referred By: EITAN Confirmed By:MAURILIO MERAZ MD 08/27/17 1037 Date Maurilio Meraz MD CC: Doris Navarro DO Signed 25-Aug-2017 Emergency Department Summary Result: Comments: See Note; NOTES: [facility] Medical Records Department [address] [place] [address] Emergency Department Summary 08/24/17 170 MR#: [id number] Acct: [id number] Name: CLIFFORD HOBBSMARICRUZ THORNE Rep #: [id number] : 1940 77 From: Zee Denise MD [...] at home. She has no history of MS PE or DVT she does have history [...] be altered This note was generated with [employer] dictation software. It may contain incorrect words, [...] your Primary Care Provider. Call Doctors Registry ([phone]) or report to the closest Emergency Room. Call 911 if necessary. 08/25/17 0001 <Electronically sig radha by Zee Denise MD> Date Zee Denise MD Cosigner Signature (If Indicated): Date CC: Doris Navarro DO 24-Aug-2017 Discharge Instruction Result: Comments: See Note; NOTES: [facility] Medical Records Department [address] [place] [address] Discharge Instruction 08/24/171819 MR#: [id number] Acct: [id number] Name: MARICRUZ GRIGSBY Rep #: [id number] : 1940 77 From: Zee Denise MD [...] your Primary Care Provider. Call Doctors Registry ([phone]) or report to the closest [facility] Room. Call 911 if necessary. 08/24/17 182 <Electronically signed by Zee Denise MD> Date Zee Denise MD Cosign er Signature (If Indicated): Date CC: Doris Navarro DO 24-Aug-2017 Chest PA and Lateral Result: Comments: See Note; NOTES: [facility] Imaging Services [address] [place] [address] Chest PA and Lateral MR#: [id number] Acct: [id number] Name: MARICRUZ GRIGSBY Rep #: [id number] : 1940 F 77 From: Stacy Tapia MD PCP: Doris Navarro DO Status: REG ER Study: Chest PA and Lateral Date of Exam: 08/24/17 Exam# [id number] Ordering Dr: Zee Denise MD XR Chest [...] CC: MD Sonam Denise; Doris Navarro DO Solar Engineer: Signed 07-Aug-2017 Chest PA and Lateral Result: Comments: See Note; NOTES: [facility] Imaging Services [address] [place] [address] Chest PA and Lateral MR#: [id number] Acct: [id number] Name: MARICRUZ GRIGSBY Rep #: [id number] : 1940 F 77 From: Teo Wayne MD PCP: Doris Navarro DO Status: REG CLI Study: Chest PA and Lateral Date of Exam: 08/07/17 Exam# [id number] Ordering Dr: Doris Navarro DO STUDY: X-RAY [...] Logan i, MD at 13:49 EST Tel [phone], Service support , CC: Doris Navarro DO Solar Engineer: Signed 20-Nov-2016 Operative Report Result: Comments: See Note; NOTES: [facility] Medical Records Department [address] [place] [address] Operative Report 11/14/16 0736 MR#: [id number] Acct: [id number] Name: MARICRUZ BREAUX Rep #: [id number] : 1940 76 From: Liza Duron DO PCP: Doris Navarro DO Status: DEP [facility] Y Location: [facility] Report of Operation Date of Procedure: 11/14/16 Pre-Operative Diagnosi s: Right third and fourth trigger fingers Post-Operative Diagnosis: Name Surgery/Procedure Performed:: Right hand third and fourth A1 shannan release Type of Anesthesia:: Block,[place] Anesthesiologist: Fox Michaels Estimated Blood Loss (mL): [...] right arm was prepped and draped after [place] block was initiated. We marke d out [...] Dragon disclaimer This note was generated with [employer] dictation software. It may contain incorrect words, spellin g, and punctuation that were not noted in checking the note before signing. 11/20/16 1231 <Electronically signed by Liza Duron DO> Date Liza Duron DO CC: Liza Duron DO; Doris Navarro DO Signed 16-Nov-2016 Oncology Progress Note Result: Comments: See Note; NOTES: [facility] Medical Records Department [address] [place] [address] Oncology Progress Note MR#: [id number] Acct: [id number] Name: PORTIA GRIGSBY Rep #: [id number] : 1940 76 From: Sal Urrutia MD [...] level. Sal Urrutia MD T: NTS JOB: [id number] 11/16/16 0850 <Electronically signed by Sal Urrutia MD> Date Sal Urrutia MD Cosigner Signature (If Indicated): Date CC: Date Dictated: 11/08/16 1305 Date Transcribed: 11/08/161304 Solar Engineer: Signed 14-Nov-2016 Discharge Instruction Result: Comments: See Note; NOTES: [facility] Medical Records Department [address] [place] [address] Instructions for Home/Discharge Instructions 11/14/16 0735 MR#: [id number] Acct: [id number] Name: MARICRUZ GRIGSBY Rep #: [id number] : 1940 76 From: Liza Duron DO PCP: Doris Navarro DO Status: REG [facility] Discharge Diet: No Restrictions - keep dressing [...] mg PO DAILY 11/09/16 Hydrocodone Bitart/Apap 5-325 [Dexter 5MG- 325MG] 1 - 2 tablet PO Q6H PRN PRN #20 tablet 11/14/16 The following prescriptions were given: Hydrocodone Bitart/Apap 5- 325 [Dexter 5MG-325MG] 1 - 2 tablet PO Q6H PRN PRN #20 tablet PRN Reason: Pain Primary Care Physician: Doris Navarro DO [Primary Care Provider] - Please Follow Up With: Liza Duron - [phone] 11/14/16 0736 <Electronically signed by Liza Duron DO> Date Liza Duron DO CC: Doris Navarro DO 20-Jul-2016 Chest PA and Lateral Result: Comments: See Note; NOTES: [facility] Imaging Services [address] [place] [address] Verdana 4d Chest PA and Lateral MR#: [id number] Acct: [id number] Name: JAQUAN GRIGSBY Rep #: [id number] : 1940 F 76 From: Mack Hand MD PCP: Doris Navarro DO Status: REG CLI Study: Chest PA and Lateral Date of Exam: 07/20/16 Exam# [id number] Ordering Dr: Doris Navarro DO STUDY: X-RAY [...] at 12:24 EST Tel , Service support [phone], CC: Doris Navarro DO Solar Engineer: Signed 26-Jan-2016 Echocardiogram Complete Result: Comments: See Note; NOTES: [facility] Cardiovascular Services [address] [place] [address] Echo Complete 01/26/16 1008 MR#: [id number] Acct: [id number] Name: MARICRUZ PARMAR Rep #: [id number] : 1940 75 From: Mack Dickerson MD Attending Dr: Maggie Tracey DO Status: REG CLI Ordering Dr: Maggie Tracey DO Date: 01/26/16 Location: [facility] Sex: F C Admitt ed: [...] Date Dictated: 01/26/16 1008 Date Transcribed: 01/26/161611 Solar Engineer: Signed 05-Dec-2015 Chest 1 View (Portable) Result: Comments: See Note; NOTES: [facility] Imaging Services [address] [place] [address] Verdana 4d Chest 1 View (Portable) MR#: [id number] Acct: [id number] Name: MARICRUZ PEÑALOZA Rep #: [id number] : 1940 F 75 From: Yari Garica MD PCP: Maggie Tracey DO Status: PRE ER Study: Chest 1 View (Portable) Date of Exam: 12/05/15 Exam# [id number] Ordering Dr: Johnnie Baez MD STUDY: X-RAY [...] at 16:44 EDT Tel , Service support [phone], RAD/Chest 1 V iew (Portable) IMPRESSION: Underexpansion of the lungs. Mild to moderate cardiomegaly. Electronically Signed: Yari Garcia MD at 16:44 EDT Tel , Service support , CC: Maggie Tracey DO; Johnnie Baez MD Solar Engineer: Signed 05-Dec-2015 Spirometry (71535) Comments: good effort and curvenormal Result: 05-Dec-2015 EKG (62742) Comments: ekg showed normal sinus rhythym, normal axis, no acute st/t wave changes Result: [MEASUREMENTS ANALYSIS] Date of Test: 12/05/2015 14:27:41; Heart Rate: 93; [place] Interval: 202; QRS: 96; QT Interval: 352; Corrected QT Interval (QTc): 409; P Wave [place]: 48; QRS Wave [place]: -26; T Wave [place] : 55; Blood Pressure: 134/64 [ECG DIAGNOSTIC STATEMENTS] Date of Test: 12/05/2015 14:27:41; Summary: Sinus Rhythm WITHIN NORMAL LIMITS 21-Sep-2015 12 Lead Electrocardiogram Result: Comments: See Note; NOTES: [facility] Cardiovascular Services [address] [place] [address] 12 Lead EKG 09/19/15 0908 MR#: [id number] Acct: [id number] Name: MARICRUZ VIGIL Rep #: [id number] : 1940 75 From: Maurilio Meraz MD [...] Confirmed by SOLEDAD STREETER, MAURILIO ([id number]), editor in chief newspaper STACY CARTER (56) on 09/21/2015 11:27:40 AM Referred By: JE Confirmed By:MAURILIO MERAZ MD 1127 Date Maurilio Meraz MD CC: Maggie Tracey DO Date Dictated: 09/19/15907 Date Transcribed: 09/19/15907 Solar Engineer: Signed 19-Sep-2015 Discharge Instruction Result: Comments: See Note; NOTES: [facility] Medical Records Department [address] [place] [address] Discharge Instruction 09/19/15 1020 MR#: [id number] Acct: [id number] Name: MARICRUZ GRIGSBY Rep #: [id number] : 1940 75 From: Johnnie Baez MD [...] chest pain, or any unexpected problems, contact [facility] doctor. Call Doctors Registry ([phone]) or report to the closest Emergency Room. Call 911 if necessary. 09/19/15 3727 <Electronically signed by Johnnie Baez MD> Date __ Johnnie Baez MD Cosigner Signature (If Indicated): Date CC: Maggie Tracey DO 19-Sep-2015 Emergency Department Summary Result: Comments: See Note; NOTES: [facility] Medical Records Department [address] [place] [address] Emergency Department Summary MR#: [id number] Acct: [id number] Name: MARICRUZ GRIGSBY Rep #: [id number] : 1940 75 From: Johnnie Baez MD PCP: Maggie Tracey DO Status: [facility] ER DATE OF SERVICE: 09/19/2015 CHIEF COMPLAINT: [...] tachycardia at 112. No acute signs of MS or ischemia. White count 11.4, H and [...] MD C C: Maggie Tracey DO T: [facility] JOB: [id number] 09/19/15 1755 <Electronically signed by Johnnie Baez MD& amp;#62; Date Johnnie Baez MD Cosigner Signature (If Indicated): Date CC: Maggie Tracey DO Date Dictated: 09/19/15 1019 Date Transcribed: 09/19/15 1019 Solar Engineer: Signed 07-Sep-2015 Chest PA and Lateral Result: Comments: See Note; NOTES: [facility] Imaging Services [address] [place] [address] Verdana 4d Chest PA and Lateral MR#: [id number] Acct: [id number] Name: MARICRUZ HADLEY Anuel Rep #: [id number] : 1940 F 75 From: Kali Raymundo MD PCP: Maggie Tracey DO Status: REG CLI Study: Chest PA and Lateral Date of Exam: 09/07/15 Exam# [id number] Ordering Dr: Maggie Irwin DO STUDY: X-RAY [...] FACR at 11:41 EST , Service support [phone], RAD/Chest PA and Lateral IMPRESSION: No significant changes. Stable moderate cardiomegaly. Bilateral interstitial changes more prominent on the right. Electroni marcus Signed: Kali Raymundo MD, FACR at 11:41 EST , Service support [phone], CC: Maggie Tracey DO Solar Engineer: Signed 07-Sep-2015 Spirometry (95054) Comments: good effort and curve normal Result: 24-Mar-2015 PT Discharge Summary Result: Comments: See Note; NOTES: [facility] [address] [place] [address]. [address] [place] [address] Fax REHABILITATION SERVICES DISCHARGE SUMMARY MR#: [id number] Acct: [id number] Name: MARICRUZ GRIGSBY Rep #: [id number] : 1940 75 From: Yuni Clark Referring [...] discharge. Yuni Clark, PT T: NTS JOB: [id number] <Electronically signed by Yuni Clark > 03/24/15 1227 CC: Maggie Tracey DO Signed 17-Feb-2015 Inital Evaluation - PT Result: Comments: See Note; NOTES: [facility] [address] [place] [address] Fax REHABILITATION SERVICES INITIAL EVALUATION MR#: [id number] Acct: [id number] Name: JOSE AHOMERO ANTHONYMARICRUZ Rep #: [id number] : 1940 75 From: Yuni Clark Referring : Maggie Tracey DO Status: REG RCR Insurance : MEDICARE PART A B Eval Date: [facility] DATE OF SERVICE: 02/16/2015 SUBJECTIVE: [...] care. Yuni Clark, PT T: NTS JOB: [id number] <Electronically signed by Yuni Clark > 02/17/15 1011 CC: Signed For Medicare only, by seng yao this I certify the plan of care. Physicians Signature Date 08-Feb-2015 L/S Spine Min 4 Views Result: Comments: See Note; NOTES: [facility] Imaging Services [address] [place] [address] Radiology Report MR#: [id number] Acct: [id number] Name: MARICRUZ GRIGSBY Rep #: [id number] : 1940 F 74 From: Teo Wayne MD PCP: Maggie Tracey DO Status: REG CLI Study: L/S Spine Min 4 Views Date of Exam: 02/08/15 Exam# [id number] Ordering Dr: Maggie Tracey DO STUDY: X-RAY [...] Wayne MD a t 12:30 EDT Tel [phone], Service support [phone], RAD/L/S Spine Min 4 Views IMPRESSION: Degenerative changes of the spine, as detailed above. Electro nically Signed: Teo Wayne MD at 12:30 EDT Tel [phone], Service support [phone], CC: Maggie Tracey DO Solar Engineer: Signed 15-Nov-2014 Thyroid Result: Comments: See Note; NOTES: [facility] Imaging Services [address] [place] [address] Ultrasound Report MR#: [id number] Acct: [id number] Name: MARICRUZ GRIGSBY Rep #: [id number] : 1940 F 74 From: Julián Trivedi DO PCP: Maggie Tracey DO Status: REG CLI Study: Thyroid Date of Exam: 11/15/14 Exam# [id number] Ordering Dr: Maggie Tracey DO STUDY: THYROID [...] Julián Trivedi DO at 16:51 EDT Tel [phone], Service support [phone], Fax CC: Maggie Tracey DO Solar Engineer: Signed 13-Sep-2014 Chest PA and Lateral Result: Comments: See Note; NOTES: [facility] Imaging Services [address] [place] [address] Radiology Report MR#: [id number] Acct: [id number] Name: MARICRUZ GRIGSBY Rep #: [id number] : 1940 F 74 From: Donato Abdi MD PCP: Maggie Tracey DO Status: REG CLI Study: Chest PA and Lateral Date of Exam: 09/13/14 Exam# [id number] Ordering Dr: Maggie Tracey DO STUDY: X [...] at 12:01 EST Tel , Service support [phone], CC: Maggie Tracey DO Solar Engineer: Signed 15-Jul-2014 Chest PA and Lateral Result: Comments: See Note; NOTES: [facility] Imaging Services [address] [place] [address] Radiology Report MR#: [id number] Acct: [id number] Name: CLIFFORD HOBBSFADUMOMARICRUZ Rep #: [id number] : 1940 F 74 From: Teo Wayne MD PCP: Maggie Tracey DO Status: REG CLI Study: Chest PA and Lateral Date of Exam: 07/15/14 Exam# [id number] Ordering Dr: Maggie Tracey DO SANDI DY: [...] Teo Wayne MD at 9:42 EST Tel [phone], Service support [phone], CC: Maggie Tracey DO Solar Engineer: Signed 10-May-2014 Bilat Scrn Digital & CAD Result: Comments: See Note; NOTES: [facility] Imaging Services [address] [place] [address] Breast Imaging Report MR#: [id number] Acct: [id number] Name: MARICRUZ GRIGSBY #: [id number] : 1940 F 74 From: Gene Phillips PCP: Maggie Tracey DO Status: REG CLI Exam# [id number] Ordering Dr: Maggie Tracey DO MAMMOGRAPHY - [...] these results will be sent to the [facility] ient by the facility within 30 days. Approximately 10% of breast cancers are not detected by mammography. A normal mammogram should not delay biopsy of a clinically suspicious abnormality. Electro nically Signed: Jessenia Phillips MD at 19:48 EDT Tel , Service support [phone], CC: Maggie Tracey DO Solar Engineer: Signed 10-Sep-2013 Dexa Bone Density Study (HP) Result: Comments: See Note; NOTES: [facility] Imaging Services [address] [place] [address] Bone Density Report MR#: [id number] Acct: [id number] Name: MARICRUZ GRIGSBY Rep #: [id number] : 1940 F 73 From: Teo Wayne MD PCP: Maggie Tracey DO Status: REG CLI Study: Dexa Bone Density Study () Date of Exam: 09/10/13 Exam# [id number] Ordering Dr: Maggie Tracey DO STUDY: DUAL [...] M.D. at 11:04 EST , Service support [phone], CC: Maggie Tracey DO Solar Engineer: Signed Immunization Name Dates Details Influenza (3 years and up) on: 04-Jun-2007 Comments: Lot #: [id number] date: 01/03Amount given: 0.5 MLRoute: IMSite given: Left deltoidGiven by: Nathaniel Beal LPN Influenza (3 years and up) on: 12-May-2009 Comments: Lot #[id number]-left deltoidgiven by:CDH Family History Unknown Family Member Name Dates Details Cancer Status: Active Diabetes Mellitus Status: Active Father Comments: MS, hypercholesterolemia Status: Active First Degree Relatives Comments: [...] kg/m2 Body Surface Area Calculated 2.03 m2 7-Lkr-058075:51 Comments: re check 142/80 Pulse 71 /min [...] kg/m2 Body Surface Area Calculated 2.01 m2 97-Tes-869401:36 Pulse 80 /min Comments: Pattern: Regular Respiration [...] kg/m2 Body Surface Area Calculated 2.01 m2 89-Lux-174537:06 Temperature 97.2 f Comments: Method: Temporal Pulse [...] administered 81mg asa orally at this time [facility] BP Systolic 156 mm[Hg] Comments: Patient Position: [...] 0.00 cm Results Date Description Value Details 66-Zjd-119157:55 Basic Metabolic Profile (BMP) Comments: [facility] [address] [place], [place], [id number] GAP 13 (Normal) Range: 5-15 CO2 25.0 [...] criteria.Please note revised GLUCOSE reference range /02/2018. 69-Gkm-135054:55 CBC W/Diff, Automated Comments: [facility] [address] [place], [place], [id number] Absolute Lymph 0.98 {X10_3/ul} (Normal) Range: 0.83-4.51 [...] 4.2-5.4 WBC 9.1 K/mm3 (Normal) Range: 4.4-11.0 65-Bqq-058686:50 Rapid Strep Test, Office (94514) Rapid Strep Test, Office Negative (Normal) 2-Dcz-875758:58 TSH (41849) Comments: PATIENT NOT FASTINGPERFORMED BY: [facility] Dkytox3612 playnikHigh[facility] [id number] TSH 5.590 {uIU/mL} (Abnormal) Range: 0.450-4.500 2-Tar-267644:58 T4, FREE (THYROXINE) (42965) Comments: PATIENT NOT FASTINGPERFORMED BY: [facility] Elvybl6686 [facility]nikHigh[facility] [id number] T4,Free(Direct) 1.81 ng/dL (Abnormal) Range: 0.82-1.77 :58 T3, FREE (TRIDOTHYRONINE) (55017) Comments: PATIENT NOT FASTINGPERFORMED BY: [facility] Cicypf[address] [facility]aceuticalsC[facility] [id number] Triiodothyronine (T3), Free 2.1 pg/mL (Normal) Range: [...] Muscle ABS Comments: Comments: ANTI-LIVER/KIDNEY MICRO AB [id number] [facility] (refer to report for specific site)refer [...] number MELI-DIRECT Negative (Normal) Comments: Performed at: [address] [id number] Director: Constantine Christianson PhD, Phone: [phone] :44 Ceruloplasmin Comments: Comments: ANTI-LIVER/KIDNEY MICRO AB [id number] [facility] (refer to report for specific site)refer to report for address and phone number CERULOPLAS 1560 22.0 mg/dL (Normal) Range: 19.0-39.0 :44 CMV Acute Antibody IgM Comments: Comments: ANTI-LIVER/KIDNEY MICRO AB [id number] [facility] (refer to report for specific site)refer to report for address and phone number CMVIgM AB < 30.0 AU/mL (Normal) Range: 0.0-29.9 Comments: Negative <30.0 Equivocal 30.0 - 34.9 Positive >34.9A positive result is generally indicative of acuteinfection, reactivation or persistent IgM production. :44 Ferritin Comments: Comments: ANTI-LIVER/KIDNEY MICRO AB [id number] SER/[facility] [address] [place], [address] FERRITIN 236 ng/mL (Normal) Range: 8-252 :44 Free T3 Comments: Comments: ANTI-LIVER/KIDNEY MICRO AB [id number] SER/[facility] [address] [place], [address] FREE T3 1.6 pg/mL (Abnormal) Range: 2.18-3.98 :44 GGTP 64 U/L (Abnormal) Comments: Comments: ANTI-LIVER/KIDNEY MICRO AB [id number] SER/[facility] [address] [place], [address] Range: 5-55 :44 Hepatitis Panel Acute Comments: Comments: ANTI-LIVER/KIDNEY MICRO AB [id number] [facility] (refer to report for specific site)refer to report for address and phone number HEP C AB <0.1 {s/co_ratio} (Normal) Range: 0.0-0.9 Comments: Negative: < 0.8 Indeterminate: 0.8 - 0.9 Positive: > 0.9 The CDC recommends that a positive HCV antibody result be followed up with a HCV Nucleic Acid Amplification test (884189). HB CORE [id number] Negative (Normal) HB SURF AG Negative (Normal) HEP A IgM 6734 Negative (Normal) :44 Liver Profile Comments: Comments: ANTI-LIVER/KIDNEY MICRO AB [id number] SER/[facility] [address] [place], [address] D BILI 0.17 mg/dL (Normal) Range: 0.00-0.30 T BILI 0.60 mg/dL (Normal) Range: 0.20-1.00 ALT 48 U/L (Normal) Range: 13-56 ALK P 93 U/L (Normal) Range: 45-117 AST 43 U/L (Abnormal) Range: 15-37 GLOB 3.5 g/dL (Normal) Range: 2.2-4.2 ALB 3.7 g/dL (Normal) Range: 3.2-5.0 T PROT 7.2 g/dL (Normal) Range: 6.4-8.2 :44 Miscellaneous Lab Procedure Comments: Comments: ANTI-LIVER/KIDNEY MICRO AB [id number] SER/RFTest(s) Ordered: ANTI-LIVER/KIDNEY MICROS AB [id number] SER/[facility] [address] [place], [address] [facility] Comments: TEST RESULT UNITS REF INTERVALLiver- Kidney Microsomal Ab <1.0 Units 0.0 - 20.0 Negative 0.0 - 20.0 LAB (Normal) Equivocal 20.1 - 24.9 Positive >24.9LKM type 1 antibodies are detected in patients withautoimmune hepatitis type 2 and in up to 8% ofpatients wi TEST th chronic HCV infection. TESTING PERFORMED AT [facility]. ORIGINAL REPORT ON FILE IN LAB CONTAINS ADDITIONAL TEST SITE INFORMATION. :44 T4 Free Direct Comments: Comments: ANTI-LIVER/KIDNEY MICRO AB [id number] [facility] [address] [place], [address] T4 FREE DIRECT 1.06 ng/dL (Normal) Range: 0.76-1.46 :44 Thyroid Stim Hormone (TSH) Comments: Comments: ANTI-LIVER/KIDNEY MICRO AB [id number] [facility] [address] [place], [address] TSH 16.40 {uIU/mL} (Abnormal) Range: 0.358-3.74 67-Aef-72824:44 Transferrin Comments: Comments: ANTI-LIVER/KIDNEY MICRO AB [id number] [facility] (refer to report for specific site)refer to report for address and phone number TRANSFERRN 2045 250 mg/dL (Normal) Range: 200-370 Comments: Performed at: - [facility] [id number] Director: Constantine Christianson PhD, Phone: [phone] 79-Fyy-830505:16 Bedside Glucose Comments: [facility] Godo[address] [facility] [place] [address] BEDSIDE GLU 152 mg/dL (Abnormal) Range: 70-110 Comments: MANAGEMENT OF PATIENT CARE PER NURSING PROTOCOL 05-Feg-782141:45 Basic Metabolic Profile (BMP) Comments: [facility] [address] [facility] [place], [address] GAP 8 (Normal) Range: 5-15 [...] criteria.Please note revised GLUCOSE reference range /02/2018. 45-Cyl-391692:45 CBC W/Diff, Automated Comments: [facility] [address] [place], [place], [address] Absolute Lymph 1.73 {X10_3/ul} (Normal) Range: 0.83-4.51 [...] Range: 4.4-11.0 :45 Partial Thromboplast Time Comments: [facility] [address] [place], [address] PTT 33.0 s (Normal) Range: 24.1-36.2 :45 Prothrombin Time w/INR Comments: [facility] [address] [place], [address] INR 0.9 (Normal) PROTIME 12.5 s (Normal) Range: 11.7-14.9 28-Bnr-602823:45 Troponin-I Comments: [facility] [address] [place], [place], [address] TROPONIN-I < 0.015 ng/mL Comments: TROPONIN-I EXPECTED VALUES <0.045 Negative 0.045 - 0.590 Consistent with Cardiac Damage > OR = 0.600 Critical Value Not every elevated troponin is indicative of MS. T (Normal) hesevalues should be used with clinical judgement in examiningthe patient's clinical picture for diagnosis. To establisha diagnosis of MS versus myocardial injury, there must be ademonstrated rise and/ or fall in the troponin values, inaddition to ischemic symptoms, EKG changes, new regionalwall motion abnormality, and/or angiographical evidence. PLEASE NOTE: REFERENCE RANGES EDITED 17 Liver-Kidney <1.0 {Units} Comments: PATIENT NOT FASTINGPERFORMED BY: [employer] [facility] HospitalYourTeamOnlineHigh[facility] [id number] 2:14 Microsomal Ab (Normal) Range: 0.0-20.0 Comments: Negative 0.0 - 20.0 Equivocal 20.1 - 24.9 Positive >24.9 . LKM type 1 antibodies are detected in patients with autoimmune hepatitis type 2 and in up to 8% of patients with chronic HCV infection. 72-Jlr-843940:14 HEPATIC FUNCTION PANEL Comments: PATIENT NOT FASTINGPERFORMED BY: [employer] [id number] (03259) ALT (SGPT) 49 [iU]/L (Abnormal) Range: 0-32 AST (SGOT) 57 [iU]/L (Abnormal) Range: 0-40 Alkaline Phosphatase 100 [iU]/L (Normal) Range: 39-117 Bilirubin, Direct 0.14 mg/dL (Normal) Range: 0.00-0.40 Bilirubin, Total 0.4 mg/dL (Normal) Range: 0.0-1.2 Albumin 4.1 g/dL (Normal) Range: 3.5-4.8 Protein, Total 6.8 g/dL (Normal) Range: 6.0-8.5 10-Izp-047940:14 HEPATITIS PANEL (97051) Comments: PATIENT NOT FASTINGPERFORMED BY: COR[facility] Vxllkk[address]12 [address] [id number] Hep C Virus Ab <0.1 {s/co_ratio} (Normal) Range: 0.0-0.9 Comments: Negative: < 0.8 Indeterminate: 0.8 - 0.9 Positive: > 0.9 . The CDC recommends that a positive HCV antibody result be followed up with a HCV Nucleic Acid Amplification test (178209). Hep B Core Ab, IgM Negative (Normal) HBsAg Screen Negative (Normal) Hep A Ab, IgM Negative (Normal) 34-Gqt-068091:14 ANTIMITOCHONDRIAL ANTIBODY Comments: PATIENT NOT FASTINGPERFORMED BY: CORTEZ [address] [id number] ([address]677) Mitochondrial (M2) Antibody <20.0 {Units} (Normal) Range: 0.0-20.0 Comments: Negative 0.0 - 20.0 Equivocal 20.1 - 24.9 Positive >24.9 . Mitochondrial (M2) Antibodies are found in 90-96% of patients with primary biliary cirrhosis. 40-Zuu-911605:14 TRANSFERRIN (29651) Comments: PATIENT NOT FASTINGPERFORMED BY: CORTEZ Galindo[address] [id number] Transferrin 226 mg/dL (Normal) Range: 200-370 65-God-826510:14 GGT (GAMMA GLUTAMYLTRANSFERASE) Comments: PATIENT NOT FASTINGPERFORMED BY: [place] [address] [id number] (71147) GGT 59 [iU]/L (Normal) Range: 0-60 69-Psr-123009:14 FERRITIN (26423) Comments: PATIENT NOT FASTINGPERFORMED BY: [address] [id number] Ferritin, Serum 545 ng/mL (Abnormal) Range: 15-150 87-Fck-925345:14 CMV IGM ANTBDY (09460) Comments: PATIENT NOT FASTINGPERFORMED BY: [address] [id number] Cytomegalovirus (CMV) Ab, IgM <30.0 AU/mL (Normal) Range: 0.0-29.9 Comments: Negative <30.0 Equivocal 30.0 - 34.9 Positive >34.9 A positive result is generally indicative of acute infection, reactivation or persistent IgM production. 03-Mte-037616:14 CERULOPLASMIN (18458) Comments: PATIENT NOT FASTINGPERFORMED BY: [employer] Ufiuln0955 [address] [id number] Ceruloplasmin 26.3 mg/dL (Normal) Range: 19.0-39.0 66-Oct-862563:14 ASM (ANTI SMOOTH MUSCLE Comments: PATIENT NOT FASTINGPERFORMED BY: [employer] Xtsfbb0647 [address] [id number] ANTIBODY) (88849) Actin (Smooth Muscle) Antibody 5 {Units} (Normal) Range: 0-19 Comments: Negative 0 - 19 Weak positive 20 - 30 Moderate to strong positive >30 . Actin Antibodies are found in 52-85% of patients with autoimmune hepatitis or chronic active hepatitis and in 22% of patients with primary biliary cirrhosis. 82-Nrq-753162:14 MELI (ANTINUCLEAR ANTIBODY) Comments: PATIENT NOT FASTINGPERFORMED BY: [employer] Doskpq4444 [address] [id number] (29642) MELI Direct Negative (Normal) 52-Lfm-346321:33 HgA1C , Office (99952) HgA1C , Office 7.2 % (Abnormal) Range: 4.6 - 7.1 65-Vfd-637447:38 MELI (ANTINUCLEAR ANTIBODY) Comments: PATIENT NOT FASTINGPERFORMED BY: KspliceRehoboth McKinley Christian [facility] Care ServicesYquido3373 [address] [id number] (13257) MELI Direct Negative (Normal) 70-Gbi-134466:38 VITAMIN B-12 (CYANOCOBALAMIN) Comments: PATIENT NOT FASTINGPERFORMED BY: [employer] Igmytg8709 [address] [id number] (99664) Vitamin B12 463 pg/mL (Normal) Range: 232-1245 29-Jls-209721:38 TSH (21088) Comments: PATIENT NOT FASTINGPERFORMED BY: [facility] Yznbxm7093 [address] [id number] TSH 0.062 {uIU/mL} (Abnormal) Range: 0.450-4.500 21-Sdb-877315:38 SED RATE ERYTHROCYTE (16611) Comments: PATIENT NOT FASTINGPERFORMED BY: [facility] [id number] Sedimentation Rate-Westergren 7 mm/h (Normal) Range: 0-40 09-Lct-446545:38 METABOLIC PANEL, COMPREHENSIVE Comments: PATIENT NOT FASTINGPERFORMED BY: [facility]6[address] [id number] (86865) ALT (SGPT) 52 [iU]/L (Abnormal) Range: 0-32 [...] 8-27 Glucose 134 mg/dL (Abnormal) Range: 65-99 14-Wgr-075110:38 C-REACTIVE PROTEIN (04380) Comments: PATIENT NOT FASTINGPERFORMED BY: [facility]6[address] [id number] C-Reactive Protein, Quant 4.8 mg/L (Normal) Range: 0.0-4.9 82-Qba-952632:38 CBC (AUTO) (23888) Comments: PATIENT NOT FASTINGPERFORMED BY: [place] [address]22[address] [id number] Platelets 248 {x10E3/uL} Range: 150-379 (Normal) RDW [...] (Abnormal) Comments: PATIENT NOT FASTINGPERFORMED BY: [facility] [id number] BY: [address] [id number] 2:25 Serum Range: 0.6-2.4 Comments: Siemens Immulite 2000 Immunochemiluminometric assay (ICMA) 1-Psx-482057:25 Immunoglobulins Comments: PATIENT NOT FASTINGPERFORMED BY: [place] [address]22[address] [id number] BY: [address] [id number] Iga/Ige/Igg/Igm (GAME) (90092) Immunoglobulin E, Total 259 {IU/mL} (Abnormal) Range: 0-100 Immunoglobulin M, Qn, Serum 113 mg/dL (Normal) Range: 26-217 Immunoglobulin A, Qn, Serum 130 mg/dL (Normal) Range: 64-422 Immunoglobulin G, Qn, Serum 837 mg/dL (Normal) Range: 700-1600 1-Ipm-856324:25 LDH (LD) (LACTATE Comments: PATIENT NOT FASTINGPERFORMED BY: [facility]iceCentraState Healthcare SystemFxphqn6744 [address] [id number] BY: [address] [id number] DEHYDROGENASE) (01763) LDH 195 [iU]/L (Normal) Range: 119-226 4-Tat-514002:25 METABOLIC PANEL, Comments: PATIENT NOT FASTINGPERFORMED BY: [facility] HealthcareRehob[facility] ServicesWbsxos5759 [address] [id number] BY: [employer] [id number] COMPREHENSIVE (26556) ALT (SGPT) 47 [iU]/L (Abnormal) Range: 0-32 [...] 8-27 Glucose 139 mg/dL (Abnormal) Range: 65-99 2-Gsi-337277:25 CBC, PLATELETS & AUT DIFF Comments: PATIENT NOT FASTINGPERFORMED BY: CORTEZ [employer] Xtiuwj1128 [address] [id number] BY: LabCoMichael Ville 158407 [facility] [id number] (90134) Immature Grans (Abs) 0.0 {x10E3/uL} (Normal) Range: [...] 3.77-5.28 WBC 7.2 {x10E3/uL} (Normal) Range: 3.4-10.8 60-Moq-764714:28 Microscopic Examination Comments: PATIENT NOT FASTINGPERFORMED BY: KspliceCentraState Healthcare SystemVydnvf0690 [address] [id number] Bacteria None seen (Normal) Mucus Threads Present (Normal) Cast Type Hyaline casts (Normal) Casts Present {/lpf} (Abnormal) Epithelial Cells (non renal) 0-10 {/hpf} (Normal) Range: 0 - 10 RBC 0-2 {/hpf} (Normal) Range: 0 - 2 WBC >30 {/hpf} (Abnormal) Range: 0 - 5 88-Jfv-007388:24 URINE RANI CULTURE-RADHA COL Comments: PATIENT NOT FASTINGPERFORMED BY: [facility] [id number] Information: SRC:UC COUNT (39423) Antimicrobial MIHEAD (Normal) Comments: S = Susceptible; I = Intermediate; R = Resistant P = Positive; N = Negative MICS are expressed in micrograms per mL Antibiotic RSLT#1 RSLT#2 RS Susceptibility LT#3 RSLT#4Amoxicillin/Clavulanic Acid SAmpicillin RCefepime SCeftriaxone SCefuroxime SCephalothin SCiprofloxacin SGentamicin SImipenem SNitrofurantoin SPiperacillin RTetracycline STobram ycin STrimethoprim/Sulfa S Result 1 Raoultella Comments: 5,000 Colonies/mL planticola (Abnormal) Urine Final report Culture,Comprehensive (Abnormal) 88-Uia-324862:28 MICROALBUMIN: CREATININE RATIO Comments: PATIENT NOT FASTINGPERFORMED BY: [facility] [id number] (35609) AND (29829) Alb/Creat Ratio 215.8 {mg/g_creat} (Abnormal) Range: 0.0-30.0 Albumin, Urine 245.4 ug/mL (Normal) Creatinine, Urine 113.7 mg/dL (Normal) 99-Olr-994657:28 URINALYSIS, W/ MICRO (48562) Comments: PATIENT NOT FASTINGPERFORMED BY: [facility] [id number] Microscopic Examination See below: (Normal) Comments: Microscopic was indicated and was performed. Nitrite, Urine Negative (Normal) Urobilinogen,Semi-Qn 0.2 mg/dL (Normal) Range: 0.2-1.0 Bilirubin Negative (Normal) Occult Blood Negative (Normal) Ketones Negative (Normal) Glucose Trace (Abnormal) Protein 1+ (Abnormal) WBC Esterase 1+ (Abnormal) Appearance Clear (Normal) Urine-Color Yellow (Normal) pH 5.5 (Normal) Range: 5.0-7.5 Specific [place] 1.025 (Normal) Range: 1.005-1.030 58-Csc-476463:28 METABOLIC PANEL, COMPREHENSIVE Comments: PATIENT NOT FASTINGPERFORMED BY: [facility] Mevldq1459 [address] [id number] (99847) ALT (SGPT) 37 [iU]/L (Abnormal) Range: 0-32 [...] Glucose, Serum 179 mg/dL (Abnormal) Range: 65-99 35-Ddg-606238:28 CBC, PLATELETS & AUT DIFF Comments: PATIENT NOT FASTINGPERFORMED BY: [employer] [id number] (34510) Immature Grans (Abs) 0.0 {x10E3/uL} (Normal) Range: [...] 3.77-5.28 WBC 9.3 {x10E3/uL} (Normal) Range: 3.4-10.8 02-Pft-189566:28 TSH (THYROID STIMULATING Comments: PATIENT NOT FASTINGPERFORMED BY: [facility] [place] [address] [id number] HORMONE) (99141) TSH 23.220 {uIU/mL} (Abnormal) Range: 0.450-4.500 60-Hzt-561744:28 LIPID PANEL (73369) Comments: PATIENT NOT FASTINGPERFORMED BY: [address] RoadDublin [place] [id number] LDL/HDL Ratio 1.7 {ratio_units} (Normal) Range: 0.0-3.2 Comments: LDL/HDL Ratio Men Women 1/2 Avg.Risk 1.0 1.5 Av g.Risk 3.6 3.2 2X Avg.Risk 6.2 5.0 3X Avg.Risk 8.0 6.1 LDL Cholesterol Calc 83 mg/dL (Normal) Range: 0-99 VLDL Cholesterol Priscilla 42 mg/dL (Abnormal) Range: 5-40 HDL Cholesterol 48 mg/dL (Normal) Triglycerides 208 mg/dL (Abnormal) Range: 0-149 Cholesterol, Total 173 mg/dL (Normal) Range: 100-199 94-Lhe-421107:28 CALCIFEDIOL (07263) Comments: PATIENT NOT FASTINGPERFORMED BY: LabMymich[facility]6[address] [id number] Vitamin D, 25-Hydroxy 25.4 ng/mL (Abnormal) Range: 30.0-100.0 Comments: Vitamin D deficiency has been defined by the [place] of[place]icine and an Endocrine Society practice guideline as alevel of serum 25-OH vitamin D less than 20 ng/mL (1,2).The Endocrine Society went on to further define vitamin Dinsufficiency as a level between 21 and 29 ng/mL (2).1. IOM ([place] of Medicine). 2010. Dietary reference intakes for calcium and D. [place]: The National Academies Press.2. Rachel MF, Yael NC, Dunia HERRERA, et al. Evaluation, treatment, and prevention of vitamin D deficiency: an Endocrine Society clinical practice guideline. JCEM. 2010; 96(7):1911-30. 79-Xpd-126645:40 Basic Metabolic Profile (BMP) Comments: 'TROP' Serial specimen #1, #2, #3, or #4: [address] [place] [address] [address] [place], [address] GAP 11 (Normal) Range: 5-15 CO2 24.0 [...] 126 mg/dLsuggests DIABETES MELLITUS per A.D.A. criteria. 93-Epf-631051:40 BNP,B-Type NATRIURETIC PEPTIDE Comments: [facility] Ottsljzcyu[address] [facility] [place], [place], [address] B-TYPE SANJU PEP 13.3 pg/mL (Normal) Range: 0-100 03-Yns-811149:40 CBC W/Diff, Automated Comments: [facility] Xghykmqduf47[address] [facility] [place], [place], [address] Absolute Lymph 1.65 {X10_3/ul} (Normal) Range: 0.83-4.51 [...] 4.2-5.4 WBC 4.1 K/mm3 (Abnormal) Range: 4.4-11.0 06-Pkc-315899:40 Troponin-I Comments: 'TROP' Serial specimen #1, #2, #3, or #4: [address] [place] [address] Z[address]jls[address]8108 [facility] HospitaldeepikaCook[place], [place], [id number] TROPONIN-I < 0.02 ng/mL (Normal) Comments: TROPONIN-I EXPECTED VALUES <0.05 NEGATIVE 0.06 - 0.59 AT RISK OF MS > OR = 0.60 SUGGEST MS 08-Bgf-768993:08 Microscopic Examination Comments: PATIENT WAS FASTINGPERFORMED BY: [employer] [facility]Co[facility] Owxydt7[address] [id number] Bacteria Few (Normal) Mucus Threads Present (Normal) Cast Type Hyaline casts (Normal) Casts Present {/lpf} (Abnormal) Epithelial Cells (non renal) 0-10 {/hpf} (Normal) Range: 0 - 10 RBC 0-2 {/hpf} (Normal) Range: 0 - 2 WBC 11-30 {/hpf} (Abnormal) Range: 0 - 5 27-Wai-450233:08 CALCIFIDIOL (74788) VIT D 25 Comments: PATIENT WAS FASTINGPERFORMED BY: [employer] [facility]CoZ[facility] Atrbyq[address] [facility] [address] [id number] Vitamin D, 25-Hydroxy 33.5 ng/mL (Normal) Range: 30.0-100.0 Comments: Vitamin D deficiency has been defined by the [place] of[place]icine and an Endocrine Society practice guideline as alevel of serum 25-OH vitamin D less than 20 ng/mL (1,2).The Endocrine Society went on to further define vitamin Dinsufficiency as a level between 21 and 29 ng/mL (2).1. IOM ([place] of Medicine). 2010. Dietary reference intakes for calcium and D. [place]: The National Academies Press.2. Rachel MF, Yael MARLEY, Dunia HERRERA, et al. Evaluation, treatment, and prevention of vitamin D deficiency: an Endocrine Society clinical practice guideline. JCEM. 2010; 96(7):1911-30. [id number] TSH ([id number]) Comments: PATIENT WAS FASTINGPERFORMED BY: Document [facility] [id number] TSH 3.700 {uIU/mL} (Normal) Range: 0.450-4.500 [id number] LIPID PANEL ([id number]) Comments: PATIENT WAS FASTINGPERFORMED BY: [facility] [id number] LDL/HDL Ratio 1.8 {ratio_units} (Normal) Range: 0.0-3.2 Comments: LDL/HDL Ratio Men Women 1/2 Avg.Risk 1.0 1.5 Av g.Risk 3.6 3.2 2X Avg.Risk 6.2 5.0 3X Avg.Risk 8.0 6.1 LDL Cholesterol Calc 84 mg/dL (Normal) Range: 0-99 VLDL Cholesterol Priscilla 49 mg/dL (Abnormal) Range: 5-40 HDL Cholesterol 46 mg/dL (Normal) Triglycerides 243 mg/dL (Abnormal) Range: 0-149 Cholesterol, Total 179 mg/dL (Normal) Range: 100-199 97-Glo-003080:08 URINALYSIS, W/ MICRO (26712) Comments: PATIENT WAS FASTINGPERFORMED BY: [facility] [id number] Microscopic Examination See below: (Normal) Comments: Microscopic was indicated and was performed. Nitrite, Urine Negative (Normal) Urobilinogen,Semi-Qn 0.2 mg/dL (Normal) Range: 0.2-1.0 Bilirubin Negative (Normal) Occult Blood Negative (Normal) Ketones Negative (Normal) Glucose Negative (Normal) Protein 2+ (Abnormal) WBC Esterase 1+ (Abnormal) Appearance Clear (Normal) Urine-Color Yellow (Normal) pH 5.5 (Normal) Range: 5.0-7.5 Specific [place] >=1.030 (Abnormal) Range: 1.005-1.030 23-Zak-959722:08 MICROALBUMIN: CREATININE RATIO Comments: PATIENT WAS FASTINGPERFORMED BY: [employer]70 playnikHigh[facility] [id number] ([id number]) AND (57840) Microalb/Creat Ratio 246.3 {mg/g_creat} (Abnormal) Range: 0.0-30.0 Microalbumin, Urine 433.7 ug/mL (Normal) Comments: Results confirmed ondilution. Creatinine, Urine 176.1 mg/dL (Normal) 80-Zzs-302351:08 METABOLIC PANEL, COMPREHENSIVE Comments: PATIENT WAS FASTINGPERFORMED BY: [employer]70 playnikHigh[facility] [id number] (77137) ALT (SGPT) 26 [iU]/L (Normal) Range: 0-32 [...] Glucose, Serum 158 mg/dL (Abnormal) Range: 65-99 23-Mnh-239828:08 CBC W/AUTO DIFF WBC (72731) Comments: PATIENT WAS FASTINGPERFORMED BY: [facility]CoCent[facility]State [facility] SystemEacohy[address] [id number] Immature Grans (Abs) 0.0 {x10E3/uL} (Normal) Range: [...] (Normal) Range: 3.4-10.8 :31 HgA1C , Office (23206) HgA1C , Office 6.6 % (Normal) Range: 4.6 - 7.1 :31 Blood Glucose , Office (58297) Blood Glucose , Office 143 (Normal) :45 CBC W/Diff, Automated Comments: [facility] [address] [place], [place], [address] Absolute Lymph 1.46 {X10_3/ul} (Normal) Range: 0.83-4.51 [...] Range: 4.4-11.0 :45 Comprehensive Metabolic Profil Comments: [facility] [address] [place], [place], [address] GAP 8 (Normal) Range: 5-15 CO2 27.0 [...] 126 mg/dLsuggests DIABETES MELLITUS per A.D.A. criteria. 3-Swg-302380:45 Prothrombin Time w/INR Comments: [facility] [address] [place], [place], [address] INR 0.9 (Normal) PROTIME 11.6 s (Abnormal) Range: 11.7-14.9 8-Nwy-404149:12 HgA1C , Office (73555) HgA1C , Office 6.5 % (Normal) Range: 4.6 - 7.1 0-Bhc-037631:12 Blood Glucose , Office (15197) Blood Glucose , Office 122 (Normal) :39 Lipid Profile Comments: [facility] [address] [place], [address] VLDL 39 mg/dL (Normal) Range: 5-40 LDL [...] report for address and phone number METHYL [id number] 215 nmol/L (Normal) Range: 0-378 Comments: Performed at: [facility] [address] [id number] Director: Frantz Josue MD, Phone: [phone] :[phone] Vitamin B12 531 pg/mL (Normal) Comments: [facility] [address] [place], [address] Range: 211-911 :39 Vitamin D,25 Hydroxy Comments: [facility] [address] [place], [address] Vitamin D 25-OH 44.7 ng/mL (Normal) Comments: Vitamin D 25(OH) Status Range Deficiency <20 ng/mL (50nmol/L) Insuffciency 20 - 30 ng/mL (50 - 75 nmol/L) Sufficiency 30 - 100 ng/mL (75 - 250 nmol/L) Toxicity >100 ng/mL (>250 nmol/L) :29 Bedside Glucose Comments: [facility] LaboratoryPoint of Wbps[address] [place] [address] BEDSIDE GLU 139 mg/dL (Abnormal) Range: 70-110 Comments: No Action RequiredMANAGEMENT OF PATIENT CARE PER NURSING PROTOCOL COLON BIOPSY (CHOOSE See Note (Normal) Comments: [facility] [address] [place], [address] :54 SITE) Comments: Patient: MARICRUZ GRIGSBY : 1940 (76/F) Acct Num: [id number] Phys: NickyConstantine Unit Num: [id number] Loc: LABSPEC Specimen: [id number] Received: 11/05/16 - 1631 Spe c Type: [...] one cassette. / RY:edita 11/06/16 TC:1 CPT: 46755 x2 HEADER OPERATION: Colonoscopy with polypectomy PRE-OP [...] on file> :47 CBC W/Diff, Automated Comments: [facility] [address] [place], [place], [address] Absolute Lymph 1.88 {X10_3/ul} (Normal) Range: 0.83-4.51 [...] 4.2-5.4 WBC 8.8 K/mm3 (Normal) Range: 4.4-11.0 05-Lup-870873:42 Comprehensive Metabolic Profil Comments: Order Date: 10/10/16Order Info: 0786-1 - *CMP Complete Metabolic PanelOrder Info: 35369-9 - *IBC Iron \E AND E\ Total Iron Binding CapacityOrder Info: 2276-4 - *FerritinComments: Reason:Order Date: 10/10/16Order Info: 01565-2 - *KAPLAMBDA - [place] Lamda Light ChainsComments: Reason:[facility] [address] [place], [place], [address] GAP 9 (Normal) Range: 5-15 CO2 28.0 [...] <126 mg/dLsuggests IMPAIRED HOMEOSTASIS per A.D.A. criteria. 24-Ity-870143:42 Ferritin Comments: Order Date: 10/10/16Order Info: 0786-1 - *CMP Complete Metabolic PanelOrder Info: 21972-5 - *IBC Iron \E AND E\ Total Iron Binding CapacityOrder Info: 2276-4 - *FerritinComments: Reason:Order Date: 10/10/16Order Info: 07433-9 - *[place] - [place] Lamda Light ChainsComments: Reason:[facility] [address] [place], [place], [address] FERRITIN 45 ng/mL (Normal) Range: 8-252 80-Pap-358245:42 DEEPALI + Protein Elect, Serum Comments: Order Date: 10/10/16Order Info: 0282-1 - *IMEL DEEPALI + Prot Elec, Serum 1495Order Info: 59074-8 - *[place] - [place] Lamda Light ChainsOrder Date: 10/10/16Order Info: 0282-1 - *IMEL DEEPALI + Prot Elec, Serum 1495Order Info: 24728-0 - *[place] - [place] Lamda Light ChainsOrder Date: 10/10/16Order Info: 81669-6 - *[place] - [place] Lamda Light ChainsIs Patient Fasting? NComments: Reason:[facility] (refer to report for specific site)refer to report for address and phone number NOTE: Comment (Normal) Comments: Protein electrophoresis scan will follow via computer,mail, or blasting cap assembler delivery. DEEPALI RESULT,S Comment (Normal) Comments: Immunofixation shows IgG monoclonal protein with lambdalight chain specificity. A/G RATIO 1.4 (Normal) Range: 0.7-1.7 GLOBULIN, TOTAL 2.8 g/dL (Normal) Range: 2.2-3.9 M-SPIKE 0.3 g/dL (Abnormal) GAMMA GLOBULIN 0.8 g/dL (Normal) Range: 0.4-1.8 BETA GLOBULIN 0.9 g/dL (Normal) Range: 0.7-1.3 WPOJG-3-PBTO 0.9 g/dL (Normal) Range: 0.4-1.0 TWLNO-8-JRPO 0.2 g/dL (Normal) Range: 0.0-0.4 ALBUMIN 3.7 g/dL (Normal) Range: 2.9-4.4 IMMUNOGL M 100 mg/dL (Normal) Range: 26-217 IMMUNO A 106 mg/dL (Normal) Range: 64-422 IMMUNO G 693 mg/dL (Abnormal) Range: 700-1600 PROTEIN,TOTAL 6.5 g/dL (Normal) Range: 6.0-8.5 60-Lsj-635517:42 Iron+Iron Binding Capacity Comments: Order Date: 10/10/16Order Info: 0786-1 - *CMP Complete Metabolic PanelOrder Info: 56840-9 - *IBC Iron \E AND E\ Total Iron Binding CapacityOrder Info: 2276-4 - *FerritinComments: Reason:Order Date: 10/10/16Order Info: 18405-8 - *[place] - [place] Lamda Light ChainsComments: Reason:[facility] [address] [place], [place], [id number] IRON SATURATION 15.9 % (Normal) Range: 15.0-55.0 IRON 49 ug/dL (Abnormal) Range: 50-170 TIBC 309 ug/dL (Normal) Range: 250-450 67-Pve-156655:42 [place] Lambda Light Chains Comments: Order Date: 10/10/16Order Info: 0282-1 - *IMEL DEEPALI + Prot Elec, Serum 1495Order Info: 68295-0 - *[place] - [place] Lamda Light ChainsOrder Date: 10/10/16Order Info: 0282-1 - *IMEL DEEPALI + Prot Elec, Serum 1495Order Info: 94331-0 - *[place] - [place] Lamda Light ChainsOrder Date: 10/10/16Order Info: 53925-6 - *[place] - [place] Lamda Light ChainsIs Patient Fasting? NComments: Reason:[facility] (refer to report for specific site)refer to report for address and phone number KAPPA/LAMBDA % 0.98 (Normal) Range: 0.26-1.65 Comments: Performed at: - [facility] [id number] Director: Constantine Christianson PhD, Phone: [phone] FR LAMBDA LT CH 19.06 mg/L (Normal) Range: 5.71-26.30 FR KAPPA LT CHN 18.62 mg/L (Normal) Range: 3.30-19.40 66-Enm-231767:06 VITAMIN B-12 (CYANOCOBALAMIN) Comments: PATIENT NOT FASTINGPERFORMED BY: [facility] [id number] (87340) Vitamin B12 709 pg/mL (Normal) Range: 211-946 49-Fbh-348921:45 Blood Glucose , Office (06727) Blood Glucose , Office 104 (Normal) 25-Eoy-570578:45 HgA1C , Office (63374) HgA1C , Office 6.7 % (Normal) Range: 4.6 - 7.1 :54 CBC W/Diff, Automated Comments: [facility] [address] [place], [place], [address] Absolute Lymph 1.51 {X10_3/ul} (Normal) Range: 0.83-4.51 [...] Range: 4.4-11.0 :54 Comprehensive Metabolic Profil Comments: [facility] [address] [place], [place], [address] GAP 8 (Normal) Range: 5-15 CO2 28.0 [...] per A.D.A. criteria. :54 Lipid Profile Comments: [facility] [address] [place], [place], [address] VLDL 38 mg/dL (Normal) Range: 5-40 LDL [...] High Risk :54 Microalb:Creat Ratio,Random UR Comments: [facility] [address] [place], [place], [address] MALB:CREAT 223.2 {mg/g_CRE} (Abnormal) MICROALBUMIN,UR 250.0 mg/L (Normal) UR CREAT 112.00 mg/dL (Normal) :54 Thyroid Stim Hormone (TSH) Comments: [facility] [address] [place] [address], [address] TSH 1.13 {uIU/mL} (Normal) Range: 0.358-3.74 :54 Urinalysis, Complete Comments: How was Urine Obtained? [facility] [address] [place], [place], [address] MUCUS, URINE 0 SEEN {/hpf} (Normal) BACTERIA [...] (Normal) CLARITY Clear (Normal) COLOR Yellow (Normal) 79-Cbu-41185:54 Vitamin D,25 Hydroxy Comments: [facility] [address] [place], [address] Vitamin D 25-OH 31.6 ng/mL (Normal) Comments: Vitamin D 25(OH) Status Range Deficiency <20 ng/mL (50nmol/L) Insuffciency 20 - 30 ng/mL (50 - 75 nmol/L) Sufficiency 30 - 100 ng/mL (75 - 250 nmol/L) Toxicity >100 ng/mL (>250 nmol/L) 17-Ueg-906095:07 VITAMIN B-12 (CYANOCOBALAMIN) Comments: PATIENT NOT FASTINGPERFORMED BY: Mambaox RoadDublin [place] [id number] (21971) Vitamin B12 1119 pg/mL (Abnormal) Range: 211-946 16-Gwe-682174:23 Microscopic Examination Comments: PATIENT WAS FASTINGPERFORMED BY: [employer]6370 Waller RoadDublin [place] [id number] Bacteria Few (Normal) Mucus Threads Present (Normal) Epithelial Cells (non renal) 0-10 {/hpf} (Normal) Range: 0 - 10 RBC 0-2 {/hpf} (Normal) Range: 0 - 2 WBC >30 {/hpf} (Abnormal) Range: 0 - 5 88-Hlf-059951:23 VITAMIN B-12 (CYANOCOBALAMIN) Comments: PATIENT WAS FASTINGPERFORMED BY: [facility] Novita PharmaceuticalsDublin [place] [id number] (96561) Vitamin B12 >2000 pg/mL (Abnormal) Range: 211-946 48-Vps-130704:23 TSH (53006) Comments: PATIENT WAS FASTINGPERFORMED BY: [employer] LabB[facility] Drqgji0992 Waller RoadDublin [place] [id number] TSH 5.380 {uIU/mL} (Abnormal) Range: 0.450-4.500 45-Tts-729594:23 URINALYSIS, W/ MICRO (06442) Comments: PATIENT WAS FASTINGPERFORMED BY: [employer] [id number] Microscopic Examination See below: (Normal) Comments: Microscopic was indicated and was performed. Nitrite, Urine Negative (Normal) Urobilinogen,Semi-Qn 0.2 mg/dL (Normal) Range: 0.2-1.0 Bilirubin Negative (Normal) Occult Blood Negative (Normal) Ketones Negative (Normal) Glucose Negative (Normal) Protein Trace (Normal) WBC Esterase 2+ (Abnormal) Appearance Clear (Normal) Urine-Color Yellow (Normal) pH 6.0 (Normal) Range: 5.0-7.5 Specific [place] 1.022 (Normal) Range: 1.005-1.030 45-Zgk-014156:23 MICROALBUMIN: CREATININE RATIO Comments: PATIENT WAS FASTINGPERFORMED BY: [employer] [id number] (37635) AND (69053) Microalb/Creat Ratio 24.2 {mg/g_creat} (Normal) Range: 0.0-30.0 Microalbumin, Urine 35.4 ug/mL (Normal) Creatinine, Urine 146.0 mg/dL (Normal) 93-Fla-629861:23 METABOLIC PANEL, COMPREHENSIVE Comments: PATIENT WAS FASTINGPERFORMED BY: [employer] [id number] (12364) ALT (SGPT) 25 [iU]/L (Normal) Range: 0-32 [...] Glucose, Serum 143 mg/dL (Abnormal) Range: 65-99 35-Yke-690507:23 CBC W/AUTO DIFF WBC (44434) Comments: PATIENT WAS FASTINGPERFORMED BY: [facility]CoCentraState Healthcare SystemRqjqnv8472 [address] [id number] Immature Grans (Abs) 0.0 {x10E3/uL} (Normal) Range: [...] 7.4 {x10E3/uL} (Normal) Range: 3.4-10.8 :23 CALCIFIDIOL (13506) VIT D 25 Comments: PATIENT WAS FASTINGPERFORMED BY: [facility] [id number] Vitamin D, 25-Hydroxy 28.9 ng/mL (Abnormal) Range: 30.0-100.0 Comments: Vitamin D deficiency has been defined by the [place] ofFort Hamilton Hospitalcine and an Endocrine Society practice guideline as alevel of serum 25-OH vitamin D less than 20 ng/mL (1,2).The Endocrine Society went on to further define vitamin Dinsufficiency as a level between 21 and 29 ng/mL (2).1. IOM ([place] of Medicine). 2010. Dietary reference intakes for calcium and D. [place]: The National Academies Press.2. Rachel MF, Yael NC, Dunia HERRERA, et al. Evaluation, treatment, and prevention of vitamin D deficiency: an Endocrine Society clinical practice guideline. JCEM. 2010; 96(7):1911-30. :22 HgA1C , Office (64581) HgA1C , Office 7.1 % (Normal) Range: 4.6 - 7.1 :22 Blood Glucose , Office (29432) Blood Glucose , Office 171 (Normal) 1-Eec-978675:10 Basic Metabolic Profile (BMP) Comments: Serial Specimen #1, #2 or #3? 1'TROP' Serial specimen #1, #2, #3, or #4: 1WC[facility] [address]ibnxtl[address] [place], [place], [address] GAP 8 (Normal) Range: 5-15 CO2 28.0 [...] 126 mg/dLsuggests DIABETES MELLITUS per A.D.A. criteria. 7-Rvm-475728:10 CBC W/Diff, Automated Comments: [facility] [address] [place], [place], [address] Absolute Lymph 1.32 {X10_3/ul} (Normal) Range: 0.83-4.51 [...] specimen #1, #2, #3, or #4: [address] [place] [address] [place] [address], [address] CKRI 1.3 % (Normal) Range: 0.0-1.4 [...] specimen #1, #2, #3, or #4: [address] [place] [address] [place] [address], [address] TROPONIN-I < 0.02 ng/mL (Normal) Comments: TROPONIN-I EXPECTED VALUES <0.05 NEGATIVE 0.06 - 0.59 AT RISK OF MS > OR = 0.60 SUGGEST MS 2-Pwz-973739:55 Blood Glucose , Office (24628) Blood Glucose , Office 117 (Normal) 0-Wvy-528274:36 HgA1C , Office (27999) HgA1C , Office 7.1 % (Normal) Range: 4.6 - 7.1 :52 CBC W/Diff, Automated Comments: CBCD WITH WBC PER ORDERWilson Health [address] [place], [address] Absolute Lymph 1.67 {X10_3/ul} (Normal) Range: 0.83-4.51 [...] Range: 4.4-11.0 :52 Comprehensive Metabolic Profil Comments: [facility] [address] [place], [place], [address] GAP 10 (Normal) Range: 5-15 CO2 26.0 [...] positive; lambda type.Performed at: CB - [facility] [address] [place] [address] 1269Lab Dire ctor: Constantine Christianson PhD, Phone: [phone] :[phone] Immunofixation, Serum Comments: [facility] (refer to report for specific site)refer to report for address and phone number DEEPALI RESULT,S Comment (Normal) Comments: Immunofixation shows IgG monoclonal protein with lambdalight chain specificity. IMMUNOGL M 112 mg/dL (Normal) Range: 26-217 IMMUNO A 110 mg/dL (Normal) Range: 64-422 IMMUNO G 783 mg/dL (Normal) Range: 700-1600 :52 [place] Lambda Light Chains Comments: [facility] (refer to report for specific site)refer to report for address and phone number KAPPA/LAMBDA % 1.03 (Normal) Range: 0.26-1.65 FR LAMBDA LT CH 21.11 mg/L (Normal) Range: 5.71-26.30 FR KAPPA LT CHN 21.66 mg/L (Abnormal) Range: 3.30-19.40 :52 Lipid Profile Comments: [facility] [address] [facility] [place], [address] ; review OV 12/02/15 VLDL [...] High Risk :52 Microalb:Creat Ratio,Random UR Comments: [facility] [address] [place], [address] MALB:CREAT 44.5 {mg/g_CRE} (Abnormal) MICROALBUMIN,UR 68.1 mg/L (Normal) UR CREAT 153.00 mg/dL (Normal) :52 Vitamin B12 268 pg/mL (Normal) Comments: [facility] [address] [place], [address] Range: 211-911 Comments: ADDENDA: normal and has f/u this saturday:52 Vitamin D,25 Hydroxy Comments: [facility] [address] [place], 813871 Vitamin D 25-OH 48.8 ng/mL (Normal) Comments: Vitamin D 25(OH) Status Range Deficiency <20 ng/mL (50nmol/L) Insuffciency 20 - 30 ng/mL (50 - 75 nmol/L) Sufficiency 30 - 100 ng/mL (75 - 250 nmol/L) Toxicity >100 ng/mL (>250 nmol/L) :15 Basic Metabolic Profile (BMP) Comments: [facility] [address] [place], [address] GAP 10 (Normal) Range: 5-15 CO2 25.0 [...] A.D.A. criteria. :15 CBC W/Diff, Automated Comments: [facility] [address] [place], [place], [address] RED CELL MORPH NORM C+C {NORMAL} (Normal) [...] (Abnormal) Range: 4.4-11.0 :08 HgA1C , Office (53593) HgA1C , Office 6.8 % (Normal) Range: 4.6 - 7.1 0-Fyv-731973:30 FERRITIN (16608) Comments: PATIENT WAS FASTINGPERFORMED BY: LabMym[facility] [id number] Ferritin, Serum 121 ng/mL (Normal) Range: 15-150 7-Qbq-215632:30 IRON (89038) Comments: PATIENT WAS FASTINGPERFORMED BY: [facility] [id number] Iron, Serum 56 ug/dL (Normal) Range: 35-155 [...] - 159 >60 years 27 - 139 6-Zmi-608865:30 TSH (86381) Comments: PATIENT WAS FASTINGPERFORMED BY: [facility] [id number] TSH 1.660 {uIU/mL} (Normal) Range: 0.450-4.500 1-Wrm-346414:30 LIPID PANEL (76045) Comments: PATIENT WAS FASTINGPERFORMED BY: [place] 12922[address] [id number] LDL/HDL Ratio 2.1 {ratio_units} (Normal) Range: 0.0-3.2 [...] Cholesterol, Total 190 mg/dL (Normal) Range: 100-199 2-Mbv-380550:30 METABOLIC PANEL, COMPREHENSIVE Comments: PATIENT WAS FASTINGPERFORMED BY: LabCoCentraState Healthcare SystemFosopp5[address] [id number] (92743) ALT (SGPT) 24 [iU]/L (Normal) Range: 0-32 [...] Glucose, Serum 122 mg/dL (Abnormal) Range: 65-99 5-Vbd-082203:30 Vitamin D Hydroxy (75277) Comments: PATIENT WAS FASTINGPERFORMED BY: LabCoCentraState Healthcare SystemClekew[address] [id number] Vitamin D, 25-Hydroxy 25.3 ng/mL (Abnormal) Range: 30.0-100.0 Comments: Vitamin D deficiency has been defined by the [place] ofMedicine and an Endocrine Society practice guideline as alevel of serum 25-OH vitamin D less than 20 ng/mL (1,2).The Endocrine Society went on to further define vitamin Dinsufficiency as a level between 21 and 29 ng/mL (2).1. IOM ([place] of Medicine). 2010. Dietary reference intakes for calcium and D. [place]: The National Academies Press.2. Rachel MF, Yael MARLEY, Dunia HERRERA, et al. Evaluation, treatment, and prevention of vitamin D deficiency: an Endocrine Society clinical practice guideline. JCEM. 2010; 96(7):1911-30. 1-Pgb-660599:30 CBC W/AUTO DIFF WBC Comments: PATIENT WAS FASTINGPERFORMED BY: [facility] [address] [id number] Information: [id number] (17094) Immature Grans (Abs) 0.0 {x10E3/uL} (Normal) Range: [...] light chains Comments: PATIENT WAS FASTINGPERFORMED BY: KspliceCentraState Healthcare SystemYextvj26[address] [id number] (14310) [place]/Lambda Ratio,S 0.81 (Normal) Range: 0.26-1.65 Free Lambda Lt Chains,S 17.93 mg/L (Normal) Range: 5.71-26.30 Free [place] Lt Chains,S 14.55 mg/L (Normal) Range: 3.30-19.40 :08 urine immunofixation (56691) Comments: PATIENT NOT FASTINGPERFORMED BY: [facility]spliceKaitlyn [place] 14201[address] [id number] Information: SRC:UR [id number] DEEPALI Interpretation:U IFEGL (Normal) Comments: 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 :30 serum immunofixation (10586) Comments: PATIENT WAS FASTINGPERFORMED BY: KspliceCentraState Healthcare SystemDmynlm4[address] [id number] Immunoglobulin M, Qn, Serum 99 mg/dL (Normal) Range: 40-230 Immunoglobulin A, Qn, Serum 107 mg/dL (Normal) Range: 91-414 Immunoglobulin G, Qn, Serum 814 mg/dL (Normal) Range: 700-1600 Immunofixation Result, Serum IFEGL (Normal) Comments: Immunofixation shows IgG monoclonal protein with lambda light chainspecificity. :49 CBC W/Diff, Automated Comments: [facility] [address] [place], [address] Absolute Lymph 0.99 {X10_3/ul} (Normal) [...] K/mm3 (Normal) Range: 4.4-11.0 :49 Ferritin Comments: [address] [place], [place], [phone] FERRITIN 80 ng/mL (Normal) Range: 8-252 :49 Hemoglobin A1c Comments: [address] [place], [address] HGB A1C 6.4 % (Abnormal) Range: 4.2-6.3 :49 Iron Comments: [address] [place], [address] IRON 43 ug/dL (Abnormal) Range: 50-170 :49 Iron Binding Capacity,Total Comments: [address] [place], [address] TIBC 336 ug/dL (Normal) Range: 250-450 :49 Protein Electro.Ur-Random Comments: [facility] (refer to report for specific site)refer to report for address and phone number M-SPIKE,U Test not performed (Normal) GAMMA GLOB,U Test not performed (Normal) Comments: Test not performed BETA GLOB,U Test not performed (Normal) Comments: Test not performed FMKOD-0-QACD,U Test not performed (Normal) Comments: Test not performed IEVGG-0-ZOLV,U Test not performed (Normal) Comments: Test not [...] electrophoresis scan will follow via computer,mail, or blasting cap assembler delivery. NOTE: Comment (Normal) Comments: The SPE [...] electrophoresis scan will follow via computer,mail, or blasting cap assembler delivery. A/G RATIO 1.5 (Normal) Range: 0.7-2.0 [...] 6.0-8.5 :49 Thyroid Stim Hormone (TSH) Comments: [facility] [address] [place], [place], [address] TSH 4.43 {uIU/mL} (Abnormal) Range: 0.358-3.74 :49 Vitamin B12 431 pg/mL (Normal) Comments: [facility] [address]coriwl[address] [place], [place], [address] Range: 211-911 Comments: ADDENDA: has apt today :58 AFP, Tumor Marker Comments: Is Patient ? N[facility] (refer to report for specific site)refer to report for address and phone number AFP TUMOR 2253 4.9 ng/mL (Normal) Range: 0.0-8.3 Comments: [employer] ECLIA methodologyPerformed at: [facility] [id number] Director: Constantine Christianson PhD, Phone: [phone] :[phone] CBC W/Diff, Automated Comments: [facility] [address] [place], [place], [address] Absolute Lymph 1.46 {X10_3/ul} (Normal) Range: 0.83-4.51 [...] 4.2-5.4 WBC 7.3 K/mm3 (Normal) Range: 4.4-11.0 89-Lxg-97553:58 Comprehensive Metabolic Profil Comments: [facility] [address] [place], [place], [address] GAP 7 (Normal) Range: 5-15 CO2 28.0 [...] per A.D.A. criteria. :58 Lipid Profile Comments: [facility] [address]ks[address]abp[address] [place], [address] ; non-emergent and has apth this [...] :58 Vitamin B12 278 pg/mL (Normal) Comments: [facility] [address]vxlulc[address] [place], [address] Range: 211-911 :58 Vitamin D,25 Hydroxy Comments: [facility] J[address]rolkbg[address] [place], [address] Vitamin D 25-OH 38.4 ng/mL (Normal) Comments: Vitamin D 25(OH) Status Range Deficiency <20 ng/mL (50nmol/L) Insuffciency 20 - 30 ng/mL (50 - 75 nmol/L) Sufficiency 30 - 100 ng/mL (75 - 250 nmol/L) Toxicity >100 ng/mL (>250 nmol/L) 11-Tqh-103556:07 HgA1C , Office (05571) HgA1C , Office 6.5 % (Normal) Range: 4.6 - 7.1 :43 AFP, Tumor Marker Comments: Is Patient ? NTest performed at:[facility] [id number] [place] [address] AFP TUMOR 2253 4.8 ng/mL (Normal) Range: 0.0-8.3 Comments: [employer] ECLIA methodologyPerformed at: CB - [facility] [address] [id number] Director: Arnold Jefferson PhD, Phone: [phone] CBC W/Diff, Automated Comments: Test performed at:[facility] [id number] [place] [address] Absolute Lymph 1.16 {X10_3/ul} (Normal) [...] :43 Comprehensive Metabolic Profil Comments: Test performed at:[facility] [id number] [facility] [place] [address] GAP 11 (Normal) Range: 5-15 [...] 126 mg/dLsuggests DIABETES MELLITUS per A.D.A. criteria. [id number] Lipid Profile Comments: Test performed at:[facility] [id number] [facility]. [place], [place] [id number] VLDL 61 mg/dL (Abnormal) Range: 5-40 LDL [...] :43 Microalb:Creat Ratio,Random UR Comments: Test performed at:[facility] [id number] [place] [id number] MALB:CREAT 15.9 {mg/g_CRE} (Normal) MICROALBUMIN,UR 19.2 mg/L (Normal) UR CREAT 120.3 mg/dL (Normal) :43 Thyroid Stim Hormone (TSH) Comments: Test performed at:[facility] Omlgrjfuqk2308 [facility] [place] [address] TSH 2.19 {uIU/mL} (Normal) Range: 0.358-3.74 :43 Vitamin B12 261 pg/mL (Normal) Comments: Test performed at:[facility] [address] [place] [address] Range: 211-911 Comments: ADDENDA: nl and pt has apt tomorrow :43 Vitamin D,25 Hydroxy Comments: Test performed at:[facility] Ayqgfibbls2438 [facility] [place] [address] Vitamin D 25-OH 30.9 ng/mL (Normal) Comments: Vitamin D 25(OH) Status Range Deficiency <20 ng/mL (50nmol/L) Insuffciency 20 - 30 ng/mL (50 - 75 nmol/L) Sufficiency 30 - 100 ng/mL (75 - 250 nmol/L) Toxicity >100 ng/mL (>250 nmol/L) :38 HgA1C , Office (50185) HgA1C , Office 6.7 % (Normal) Range: 4.6 - 7.1 :56 AFP, Tumor Marker Comments: Is Patient ? NTest performed at:[facility] [address] [place] [id number] ; appt 02/15 AFP TUMOR 2253 4.8 ng/mL (Normal) Range: 0.0-8.3 Comments: Patricia ECLIA methodologyPerformed at: CB - [facility] Uoufuz3062 [place], [place] [id number] Director: Arnold Jefferson PhD, Phone: [phone] :[phone] CBC W/Diff, Automated Comments: Test performed at:[facility] Er[address]xwycvj[address] [place] [address] Absolute Lymph 2.37 {X10_3/ul} (Normal) [...] 4.4-11.0 :56 Lipid Profile Comments: Test performed at:[facility] N[address]vol[address]he[address] [place] [address] VLDL 26 mg/dL (Normal) Range: [...] :56 Partial Thromboplast Time Comments: Test performed at:[facility] [address] [place] [address] PTT 30.1 s (Normal) Range: 24.1-36.2 :56 Prothrombin Time w/INR Comments: Test performed at:[facility] [address] [place] [address] 725241 INR 1.0 (Normal) PROTIME 12.8 s (Normal) Range: 11.7-14.9 :56 Thyroid Stim Hormone (TSH) Comments: Test performed at:[facility] [address]ikedyp[address] [place] [address] TSH 5.17 {uIU/mL} (Abnormal) Range: 0.358-3.74 :56 Vitamin B12 293 pg/mL (Normal) Comments: Test performed at:[facility] [address]vsvwn[address] [place] [address] 398571 Range: 211-911 :56 Vitamin D,25 Hydroxy Comments: Test performed at:[facility] [address]ytuuboveg[address] [place] [id number] Vitamin D 25-OH 32.0 ng/mL (Normal) Comments: Vitamin D 25(OH) Status Range Deficiency <20 ng/mL (50nmol/L) Insuffciency 20 - 30 ng/mL (50 - 75 nmol/L) Sufficiency 30 - 100 ng/mL (75 - 250 nmol/L) Toxicity >100 ng/mL (>250 nmol/L) 52-Lwd-642745:07 HgA1C , Office (21074) HgA1C , Office 6.3 % (Normal) Range: 4.6 - 7.1 :33 CBC W/Diff, Automated Comments: Test performed at:[facility] [address]brx[address] [place], [place] [id number] ; non- emergent till apt Absolute Lymph [...] :33 Comprehensive Metabolic Profil Comments: Test performed at:[facility] [address]beew[address] [place] [address] GAP 4 (Abnormal) Range: 5-15 [...] criteria. :33 Lipid Profile Comments: Test performed at:[facility] [address]jarbf[address] [place] [address] VLDL 29 mg/dL (Normal) Range: [...] B12 394 pg/mL (Normal) Comments: Test performed at:[facility] [address] [place] [address] Range: 211-911 :33 Vitamin D,25 Hydroxy Comments: Test performed at:[facility] [address]ua[address] [place] [address] Vitamin D 25-OH 39.6 ng/mL (Normal) Comments: Vitamin D 25(OH) Status Range Deficiency <20 ng/mL (50nmol/L) Insuffciency 20 - 30 ng/mL (50 - 75 nmol/L) Sufficiency 30 - 100 ng/mL (75 - 250 nmol/L) Toxicity >100 ng/mL (>250 nmol/L) :10 HgA1C , Office (60838) HgA1C , Office 6.4 % (Normal) Range: [...] CHOL 167 mg/dL (Normal) Comments: <200 mg/dL Vhypgsdzn075-913 mg/dL Borderline>240 mg/dL High Risk TRIG 200 mg/dL (Abnormal) Range: 0-199 Comments: Serum Triglycerides Reference IntervalNormal <150 mg/dLBorderline high 150 - 199 mg/dLHigh 200 - 499 mg/ dLVery High > or = 500 mg/dL :42 TIBC 275 ug/dL (Normal) Range: 250-450 :42 TSH 2.12 {uIU/mL} (Normal) Range: 0.358-3.74 30-Ool-437871:10 FERRITIN (74337) Comments: PATIENT NOT FASTINGPERFORMED BY: [facility] [id number] Ferritin, Serum 133 ng/mL (Normal) Range: 15-150 46-Dxp-779415:10 IRON BINDING CAPACITY Comments: PATIENT NOT FASTINGPERFORMED BY: [facility] lemonade[employer] [facility] [id number] Information: [id number] (TIBC) (34316) Iron Saturation 20 % (Normal) Range: 15-55 Iron, Serum 62 ug/dL (Normal) Range: 35-155 UIBC 241 ug/dL (Normal) Range: 150-375 Iron Bind.Cap.(TIBC) 303 ug/dL (Normal) Range: 250-450 40-Sid-435201:10 VITAMIN B-12 (CYANOCOBALAMIN) Comments: PATIENT NOT FASTINGPERFORMED BY: [facility] [id number] (91563) Vitamin B12 421 pg/mL (Normal) Range: 211-946 56-Mww-234488:10 TSH (15074) Comments: PATIENT NOT FASTINGPERFORMED BY: [facility] [place] [id number] TSH 1.150 {uIU/mL} (Normal) Range: 0.450-4.500 36-Qln-620894:37 HgA1C , Office (46022) HgA1C , Office 6.1 % (Normal) Range: 4.6 - 7.1 7-Maq-322245:10 CBC with manual diff Comments: PATIENT WAS FASTINGPERFORMED BY: [facility] Qhptqb[address] [id number] Information: [id number] (60365) Immature Grans (Abs) 0.0 {x10E3/uL} (Normal) Range: [...] 3.77-5.28 WBC 8.2 {x10E3/uL} (Normal) Range: 3.4-10.8 2-Wku-333615:10 Metabolic Panel, Comprehensive Comments: PATIENT WAS FASTINGPERFORMED BY: [facility] SystemPgidmc2161 [facility] [address] [id number] (90090) ALT (SGPT) 11 [iU]/L (Normal) Range: 0-32 [...] Glucose, Serum 129 mg/dL (Abnormal) Range: 65-99 4-Rhf-111639:10 Lipid Panel (43642) Comments: PATIENT WAS FASTINGPERFORMED BY: KspliceCentraState Healthcare SystemRbqepc9621 [facility] [address] [id number] LDL/HDL Ratio 1.4 {ratio_units} (Normal) Range: 0.0-3.2 [...] METABOLIC PANEL, Comments: PATIENT NOT FASTINGPERFORMED BY: [employer] Caecbu3752 [facility] [address] [id number] Information: [id number] COMPREHENSIVE (17258) ALT (SGPT) 15 [iU]/L (Normal) Range: 0-32 [...] 133 mg/dL (Abnormal) Range: 65-99 :14 TSH (14390) Comments: PATIENT NOT FASTINGPERFORMED BY: [facility]CoCent[facility] SystemDtuldu7996 [address] [id number] TSH 0.182 {uIU/mL} (Abnormal) Range: 0.450-4.500 :40 [...] CHOL 99 mg/dL (Normal) Comments: <200 mg/dL Yztnssuxo887-975 mg/dL Borderline>240 mg/dL High Risk :40 MIACRE [...] CHOL 148 mg/dL (Normal) Comments: <200 mg/dL Nsshzonzy701-017 mg/dL Borderline>240 mg/dL High Risk HDL 46 [...] - 250 nmol/L)Toxicity >100 ng/mL (>250 nmol/L) 59-Fnk-482648:27 HgA1C , Office (16470) HgA1C , Office 6.7 % (Normal) Range: 4.6 - 7.1 :17 METABOLIC PANEL, COMPREHENSIVE Comments: PATIENT WAS FASTINGPERFORMED BY: [employer]70 playnikHigh[facility] [id number] (41336) ALT (SGPT) 16 [iU]/L (Normal) Range: 0-32 [...] mg/dL (Abnormal) Range: 65-99 :17 LIPID PANEL (85897) Comments: PATIENT WAS FASTINGPERFORMED BY: Document AgilityHigh[facility] [id number] LDL/HDL Ratio 2.0 {ratio_units} (Normal) Range: 0.0-3.2 [...] MANUAL DIFF Comments: PATIENT WAS FASTINGPERFORMED BY: [facility]CoCentraState Healthcare SystemOekiuc6799 [address] [id number] Information: [id number] (10954) Immature Grans (Abs) 0.0 {x10E3/uL} (Normal) Range: [...] B-12 (CYANOCOBALAMIN) Comments: PATIENT WAS FASTINGPERFORMED BY: [employer] LabPartyLineCentraState Healthcare SystemOrpmno1300 [facility] [place] [id number] (98895) Vitamin B12 696 pg/mL (Normal) Range: 211-946 :17 Vitamin D Hydroxy (37883) Comments: PATIENT WAS FASTINGPERFORMED BY: [facility] Wvhtdv3480 [facility] [place] [id number] Vitamin D, 25-Hydroxy 29.3 ng/mL (Abnormal) Range: 30.0-100.0 Comments: Vitamin D deficiency has been defined by the [place] ofMedicine and an Endocrine Society practice guideline as alevel of serum 25-OH vitamin D less than 20 ng/mL (1,2).The Endocrine Society went on to further define vitamin Dinsufficiency as a level between 21 and 29 ng/mL (2).1. IOM ([place] of Medicine). 2010. Dietary reference intakes for calcium and D. [place]: The National Academies Press.2. Rachel MF, Yael NC, Dunia HERRERA, et al. Evaluation, treatment, and prevention of vitamin D deficiency: an Endocrine Society clinical practice guideline. JCEM. 2010; 96(7):1911-30. 73-Ybh-793840:29 HgA1C , Office (80565) HgA1C , Office 7.0 % (Normal) Range: 4.6 - 7.1 6-Pnz-139297:14 B12 794 pg/mL (Normal) Range: 211-911 Comments: Effective 201227-Dec-20128-Dqy-954976:14 VITD 37.5 ng/mL (Normal) Comments: Vitamin D 25(OH) Status RangeDeficiency <20 ng/mL (50nmol/L)Insufficiency 20 - 30 ng/mL (50 - 75 nmol/L)Sufficiency 30 - 100 ng/mL (75 - 250 nm ol/L)Toxicity >100 ng/mL (250 nmol/L)Effective 201201-Dec-20123-Xhs-680761:13 CHEST PA AND LATERAL Radiology Report See [...] Tate D.O.December 01, 2012 at 12:40:54 PM [id number] Signed DS/DS If you are the referring physician and would like to consult with theradiologist who provided this i nterpretation, please contact Eulalio Tate D.O. at [phone]. If this radiologist is unavailable, you will bedirected to another radiologist to assist. If you are a patient with a question regarding t his report, pleasecontactyour referring physician directly. Professional Interpretation Provided By: [facility], Phone , These documents contain legally protected [...] 12/01/12 1244 Sign by: Mack Peterson DO 05-Rxp-581551:20 Upper Respiratory Culture Comments: PATIENT NOT FASTINGPERFORMED BY: [facility]6[address] [id number] Information: SRC: THROAT Result 1 RRF (Normal) Comments: Routine respiratory alton Upper Respiratory Culture Final report (Normal) 31-Cdy-700506:06 Rapid Strep Test, Office (98182) Rapid Strep Test, Office Negative (Normal) 15-Wll-999709:32 BILAT SCRN DIGITAL & CAD Radiology Report [...] Wayne M.D.November 18, 2012 at 12:51:57 PM [id number] Signed GP/GP If you are the referring physician and would like to consult with theradiologist who provid ed this interpretation, please contact Todd Claudio. at [phone]. If this radiologist is unavailable, youwill be directed to another radiologist to assist. If you are a patient with a ques tion regarding this report, pleasecontactyour referring physician directly. Professional Interpretation Provided By: [facility], Phone , These documents contain legally pr [...] 11/18/12 1254 Sign by: Teo Wayne MD 9-Wkr-245553:24 URINE RANI CULTURE-IDENTIFICATN Comments: PATIENT NOT FASTINGPERFORMED BY: [employer] Ctekac6437 [address] [id number] Information: [id number] (59332) Result 1 MUG (Normal) Comments: Mixed urogenital flora10,000-25,000 colony forming units per mL Urine Final report (Normal) Culture,Comprehensive 99-Zbc-701270:50 METABOLIC PANEL, Comments: PATIENT NOT FASTINGPERFORMED BY: [employer] Qyrpmn6368 [address] [id number] Information: ADD [id number] AND DRAW FEE 99 8767 COMPREHENSIVE (48318) ALT (SGPT) 14 [iU]/L (Normal) Range: 0-32 [...] Glucose, Serum 109 mg/dL (Abnormal) Range: 65-99 8-Kao-868246:42 HgA1C , Office (02049) HgA1C , Office 6.3 % (Normal) Range: 4.6 - 7.1 :04 Microscopic Examination Comments: PATIENT NOT FASTINGPERFORMED BY: LabCoCentraState Healthcare SystemSznawh3090 [address] [id number] Bacteria Few (Normal) Mucus Threads Present (Normal) Cast Type Hyaline casts (Normal) Casts Present {/lpf} (Abnormal) Epithelial Cells (non renal) 0-10 {/hpf} (Normal) Range: 0 - 10 RBC 0-3 {/hpf} (Normal) Range: 0 - 3 WBC 6-10 {/hpf} (Abnormal) Range: 0 - 5 :04 VITAMIN B-12 (CYANOCOBALAMIN) Comments: PATIENT NOT FASTINGPERFORMED BY: [facility] Zxfqbr8993 [address] [id number] (70003) Vitamin B12 1228 pg/mL (Abnormal) Range: 211-946 :04 Vitamin D Hydroxy (53035) Comments: PATIENT NOT FASTINGPERFORMED BY: [facility]6370 [address] [id number] Vitamin D, 25-Hydroxy 21.9 ng/mL (Abnormal) Range: 30.0-100.0 Comments: Vitamin D deficiency has been defined by the [place] ofMedicine and an Endocrine Society practice guideline as alevel of serum 25-OH vitamin D less than 20 ng/mL (1,2).The Endocrine Society went on to further define vitamin Dinsufficiency as a level between 21 and 29 ng/mL (2).1. IOM ([place] of Medicine). 2010. Dietary reference intakes for calcium and D. [place]: The National Academies Press.2. Rachel MF, Yael NC, Dunia HERRERA, et al. Evaluation, treatment, and prevention of vitamin D deficiency: an Endocrine Society clinical practice guideline. JCEM. 2010; 96(7):1911-30. :04 URINALYSIS, W/ MICRO (82074) Comments: PATIENT NOT FASTINGPERFORMED BY: [facility]6[address] [id number] Microscopic Examination See below: (Normal) Nitrite, Urine Negative (Normal) Bilirubin Negative (Normal) Urobilinogen,Semi-Qn 0.2 mg/dL (Normal) Range: 0.0-1.9 Occult Blood Negative (Normal) Ketones Negative (Normal) Glucose Negative (Normal) Protein Negative (Normal) WBC Esterase 1+ (Abnormal) Appearance Clear (Normal) Urine-Color Yellow (Normal) pH 5.5 (Normal) Range: 5.0-7.5 Specific [place] 1.024 (Normal) Range: 1.005-1.030 :04 CBC WITH MANUAL DIFF Comments: PATIENT NOT FASTINGPERFORMED BY: [facility]6[address] [id number] Information: [id number] (83692) Immature Grans (Abs) 0.0 {x10E3/uL} (Normal) Range: [...] COMPREHENSIVE Comments: PATIENT NOT FASTINGPERFORMED BY: [facility]6[address] [id number] (86471) ALT (SGPT) 13 [iU]/L (Normal) Range: 0-32 [...] Glucose, Serum 125 mg/dL (Abnormal) Range: 65-99 50-Mzl-18154:04 LIPID PANEL (32790) Comments: PATIENT NOT FASTINGPERFORMED BY: [facility] Bdbvxi1872 [address] [id number] LDL Cholesterol Calc 103 mg/dL (Abnormal) Range: [...] pg/mL (Normal) Range: 211-946 Comments: Performed at: [facility] [address] [id number] Director: Arnold Jefferson PhD, Phone: [phone] :[phone] CMP GAP 9 (Normal) Range: 5-15 [...] 250 nmol/L) Toxicity >100 ng/mL (250 nmol/L)Effective 201215-Aug-201240-Nhi-215802:20 Metabolic Panel, Basic Comments: PATIENT NOT FASTINGPERFORMED BY: Document AgilityHigh[facility] [id number] Information: [id number] (75179) Calcium, Serum 10.2 mg/dL (Normal) Range: 8.6-10.2 [...] Glucose, Serum 99 mg/dL (Normal) Range: 65-99 5-Ecj-428579:24 Microscopic Examination Comments: PATIENT NOT FASTINGPERFORMED BY: [employer]70 [employer]24 [facility] [id number] Bacteria Few (Normal) Mucus Threads Present (Normal) Epithelial Cells (non renal) 0-10 {/hpf} (Normal) Range: 0 - 10 RBC 0-3 {/hpf} (Normal) Range: 0 - 3 WBC 6-10 {/hpf} (Abnormal) Range: 0 - 5 :24 Vitamin D Hydroxy (23470) Comments: PATIENT NOT FASTINGPERFORMED BY: [employer] Psqtjs1300 [address] [id number] Vitamin D, 25-Hydroxy 21.7 ng/mL (Abnormal) Range: 30.0-100.0 Comments: Vitamin D deficiency has been defined by the [place] ofFort Hamilton Hospitalcine and an Endocrine Society practice guideline as alevel of serum 25-OH vitamin D less than 20 ng/mL (1,2).The Endocrine Society went on to further define vitamin Dinsufficiency as a level between 21 and 29 ng/mL (2).1. IOM ([place] of Medicine). 2010. Dietary reference intakes for calcium and D. [place]: The National Academies Press.2. Rachel MF, Yael MARLEY, Dunia HERRERA, et al. Evaluation, treatment, and prevention of vitamin D deficiency: an Endocrine Society clinical practice guideline. JCEM. 2010; 96(7):1911-30. 4-Bwm-204718:24 VITAMIN B-12 (CYANOCOBALAMIN) Comments: PATIENT NOT FASTINGPERFORMED BY: [employer] Ywfsvo0211 [address] [id number] (63915) Vitamin B12 431 pg/mL (Normal) Range: 211-946 :24 URINALYSIS, W/ MICRO (66383) Comments: PATIENT NOT FASTINGPERFORMED BY: [employer] Vfgfaz8154 [address] [id number] Microscopic Examination MICRON (Normal) Comments: Microscopic follows if indicated. Microscopic Examination See below: (Normal) Nitrite, Urine Negative (Normal) Urobilinogen,Semi-Qn 0.2 mg/dL (Normal) Range: 0.0-1.9 Bilirubin Negative (Normal) Ketones Negative (Normal) Occult Blood Negative (Normal) Glucose Negative (Normal) Protein Negative (Normal) WBC Esterase Negative (Normal) Appearance Clear (Normal) pH 6.5 (Normal) Range: 5.0-7.5 Urine-Color Yellow (Normal) Specific [place] 1.022 (Normal) Range: 1.005-1.030 :24 CBC WITH MANUAL DIFF Comments: PATIENT NOT FASTINGPERFORMED BY: LabCoCentraState Healthcare SystemEdpfox7228 [address] [id number] Information: [id number] (47826) Immature Grans (Abs) 0.0 {x10E3/uL} (Normal) Range: [...] PANEL, COMPREHENSIVE Comments: PATIENT NOT FASTINGPERFORMED BY: [facility]6[address] [id number] (36245) ALT (SGPT) 16 [iU]/L (Normal) Range: 0-32 [...] Glucose, Serum 107 mg/dL (Abnormal) Range: 65-99 2-Pgl-913887:24 TSH (05716) Comments: PATIENT NOT FASTINGPERFORMED BY: [place]ice[place]aitlyn [place] 1420170 [address] [id number] TSH 2.000 {uIU/mL} Range: 0.450-4.500 (Normal) CCP Antibodies IgG/IgA 1 {units} (Normal) Comments: PATIENT NOT FASTINGPERFORMED BY: LabPartyLineCentraState Healthcare SystemWpzexp5627 [address] [id number] BY: [address] [id number] :39 Range: 0-19 Comments: Negative <20 Weak positive 20 - 39 Moderate positive 40 - 59 Strong positive >59 4-Tfa-525812:39 Systemic Lupus Profile Comments: PATIENT NOT FASTINGPERFORMED BY: CB [facility] Wlppth4089 Sridhar DavilaC[facility] [id number] BY: BN [facility] Vndoetnrax3712 [facility] [id number] Information: [id number] (91101) Anti-DNA (DS) Ab Qn <1 {IU/mL} (Normal) Range: 0-9 Comments: Negative <5 Equivocal 5 - 9 Positive >9 Sjogren's Anti-SS-B 0.5 {AI} (Normal) Range: 0.0-0.9 Sjogren's Anti-SS-A 0.3 {AI} (Normal) Range: 0.0-0.9 Antichromatin Antibodies <0.2 {AI} (Normal) Range: 0.0-0.9 RA Latex Turbid. 8.5 {IU/mL} (Normal) Range: 0.0-13.9 [place] Antibodies <0.2 {AI} (Normal) Range: 0.0-0.9 LABEL TACKER Antibodies <0.2 {AI} (Normal) Range: 0.0-0.9 90-Ygk-881563:27 HgA1C , Office (95008) HgA1C , Office 6.2 % (Normal) Range: 4.6 - 7.1 22-Lka-161845:27 Blood Glucose , Office (05404) Blood Glucose , Office 108 (Normal) :45 [...] D deficiency has been defined by the [place] ofMedicine and an Endocrine Society practice guideline as alevel of serum 25-OH vitamin D less than 20 ng/mL (1,2).The Endocrine Society went on to further define vitamin Dinsufficiency as a level between 21 and 29 ng/mL (2).1. IOM ([place] of Medicine). 2010. Dietary reference intakes for calcium and D. [facility]: The National Academies Press.2. Rachel MF, Yael NC, Dunia HERRERA, et al. Evaluation, treatment, and prevention of vitamin D deficiency: an Endocrine Society clinical practice guideline. JCEM. 2010; 96(0): 1911-30.Performed at: - [facility] [id number] Director: Arnold Jefferson PhD, Phone: [phone] 38-Rtb-504820:59 Blood Glucose , Office (18914) Blood Glucose , Office 131 (Normal) :58 HgA1C , Office (48267) HgA1C , Office 6.8 % (Normal) Range: [...] mg/dL suggests DIABETES MELLITUS per A.D.A. criteria. 13-Wfe-732381:12 LIPID LDL 104 mg/dL (Normal) Range: 0-130 [...] 200-240 mg/dL Borderline >240 mg/dL High Risk 88-Mci-679674:12 TSH 2.08 {uIU/mL} (Normal) Range: 0.358-3.74 25-Diq-686941:12 VITD 34.7 ng/mL (Normal) Range: 30.0-100.0 Comments: Vitamin D deficiency has been defined by the [place] ofMedicine and an Endocrine Society practice guideline as alevel of serum 25-OH vitamin D less than 20 ng/mL (1,2).The Endocrine Society went on to further define vitamin Dinsufficiency as a level between 21 and 29 ng/mL (2).1. IOM ([place] of Medicine). 2010. Dietary reference intakes for calcium and D. [place]: The National Academies Press.2. Rachel MF, Yael MARLEY, Dunia HERRERA, et al. Evaluation, treatment, and prevention of vitamin D deficiency: an Endocrine Society clinical practice guideline. JCEM. 2010; 96(7): 1911-30.Performed at: - [facility] [id number] Director: Tona Emmanuel MD, Phone: [phone] :[phone] HgA1C , Office (38129) HgA1C , Office 5.8 % (Normal) Range: 4.6 - 7.1 :15 Blood Glucose , Office (08401) Blood Glucose , Office 113 (Normal) :30 [...] D deficiency has been defined by the [place] ofFort Hamilton Hospitalcine and an Endocrine Society practice guideline as alevel of serum 25-OH vitamin D less than 20 ng/mL (1,2).The Endocrine Society went on to further define vitamin Dinsufficiency as a level between 21 and 29 ng/mL (2).1. IOM ([place] of Medicine). 2010. Dietary reference intakes for calcium and D. [place]: The National Academies Press.2. Rachel MF, Yael NC, Dunia HERRERA, et al. Evaluation, treatment, and prevention of vitamin D deficiency: an Endocrine Society clinical practice guideline. JCEM. 2010; 96(7): 1911-30.Performed at: [address] [id number] Director: Tona Emmanuel MD, Phone: [phone] 95-Tip-294068:02 CTA NECK W/WO CONTRAST Radiology Report See [...] ologist regarding this report, please call our [id number] line @ Dictated on 10/08/11 [address]ER,Davidranscribed on 10/09/11 0856 by ITS IMPORTSign by Juana Wayne MD on 10/09/11 0857 Sign by: Teo Wayne MD 41-God-925481:00 BILAT SCRN DIGITAL & CAD Radiology Report [...] radiologist regarding this report, please call our [id number] line @ Dictated on 09/18/11 1040 by Ori clifton MD,GeerieleTranscribed on 09/20/11900 by ITS IMPORTSign by Teo Wayne MD on 09/20/11901 Sign by: Teo Wayne MD 19-Ovd-58753:59 DEXA BONE DENSITY STUDY (HP) Radiology Report [...] regarding this re port, please call our 97A7vzpejei line @ Dictated on 09/18/11 [address]ER,Davidranscribed on 09/19/11 1416 by ITS IMPORTSign by Teo Wayne MD on 09/19/11 1417 Sign by: Teo Wayne MD 78-Mwh-502211:17 HgA1C , Office (71234) HgA1C , Office 5.9 % (Normal) Range: 4.6 - 7.1 21-Tlb-214480:17 Blood Glucose , Office (04487) Blood Glucose , Office 77 (Normal) 04-Sep-20119:44 [...] >240 mg/dL High Risk :44 VIT D,25 29265 22.3 ng/mL (Abnormal) Range: 30.0-100.0 Comments: Vitamin D deficiency has been defined by the [place] ofMedicine and an Endocrine Society practice guideline as alevel of serum 25-OH vitamin D less than 20 ng/mL (1,2).The Endocrine Society went on to further define vitamin Dinsufficiency as a level between 21 and 29 ng/mL (2).1. IOM ([place] of Medicine). 2011. Dietary reference intakes for calcium and D. [place]: The National Academies Press.2. Rachel MF, Yael NC, Dunia HERRERA, et al. Evaluation, treatment, and prevention of vitamin D deficiency: an Endocrine Society clinical practice guideline. JCEM. 2010; 96(7): 1911-30.Performed at: - Lab[address] [id number] Director: Tona Emmanuel MD, Phone: [phone] 2-Aom-840082:34 HgA1C , Office (85129) HgA1C , Office 6.6 % (Normal) Range: 4.6 - 7.1 :34 Blood Glucose , Office (19328) Blood Glucose , Office 116 (Normal) :50 [...] Range: 4.4-11.0 :50 COMP METABOLIC Comments: appt 59202 GAP 10 (Normal) Range: 5-15 CO2 26.0 [...] {uIU/mL} (Normal) Range: 0.358-3.74 :50 VIT D,25 35590 41.3 ng/mL (Normal) Range: 32.0-100.0 Comments: Effective June 18, 2011 Vitamin D, 25-Hydroxy reference intervals will be changing to 30-100. .Recent studies consider the lower li lalo of 32.0 ng/mL to be athreshold for optimal health.Pepito ANNE. J Nutr. 2004;135(2):317-22.Performed at: [facility] [address] [id number] Director: Tona Emmanuel MD, Phone: [phone] :[phone] VITAMIN B12 806 pg/mL (Normal) Range: [...] Panel (14) Comments: PATIENT WAS FASTINGPERFORMED BY: [facility] [id number] ALT (SGPT) 40 [iU]/L (Normal) Range: 0-40 [...] Glucose, Serum 136 mg/dL (Abnormal) Range: 65-99 9-Wfl-730807:09 Lipid Panel With LDL/HDL Comments: PATIENT WAS FASTINGPERFORMED BY: LabCoCentraState Healthcare SystemVixbzt9[address] [id number] Ratio LDL Cholesterol Calc 74 mg/dL (Normal) [...] {uIU/mL} Comments: PATIENT WAS FASTINGPERFORMED BY: [facility] [id number] 09 (Abnormal) Range: 0.450-4.500 : Vitamin B12 417 pg/mL (Normal) Comments: PATIENT WAS FASTINGPERFORMED BY: [facility] SystemHfaubb[address] [id number] Range: 211-946 57-Yvl-939551:22 UNILAT LT DIAG DIGITAL & CAD Radiology [...] 4.2-5.4 WBC 7.2 K/mm3 (Normal) Range: 4.4-11.0 40-Ytu-60248:58 COMP METABOLIC Comments: appt 10/24/10 GAP 12 [...] {uIU/mL} (Abnormal) Range: 0.358-3.74 :58 VIT D,25 18874 22.0 ng/mL (Abnormal) Comments: appt 10/24/10 Range: 32.0-100.0 Comments: Recent studies consider the lower limit of 32.0 ng/mL to tammy threshold for optimal health.Pepito ANNE. J Nutr. 2004;135(2):317-22.Performed at: [facility] Lab[address] Director: Tona Emmanuel MD, Phone: [phone] :[phone] VITAMIN B12 285 pg/mL (Normal) Range: [...] Thin Prep VialPATIENT NOT FASTINGPERFORMED BY: [facility] [address] [facility] TONJA [id number] Information: [id number] ([id number]) Note: PAPSMR (Normal) Comments: The Pap smear [...] for malignant neoplasm of the cervixMattsteve Montes Dispatch Associate (ASCP) 52-Jcm-128511:26 BREAST UNILATERAL Radiology Report See Note (Normal) [...] on 08/28/10 1453 Sign by: ANTHONY PALOMARES 80-Ufe-992725:58 UNILAT LT DIAG DIGITAL & CAD Radiology [...] Category 3: Probably Benign Finding - Initial Uxdkl-QsiasudnBayajv-hv Suggested. A letter regarding these results will be sent tothepatient by the facility within 30 days. Approximately 10% of breast cancers are not detected by mammography. Anormal mammogram should not delay biopsy of a clinically suspiciousabnormality. Dictated on 08/24/10 1206 by ANTHONY PALOMARESTranscribed on 0 08/24/10 1351 by ITS IMPORTSign by ANTHONY PALOMARES on 08/24/10 1352 Sign by: ANTHONY PALOMARES 13-Mmp-38544:43 BILAT SCRN DIGITAL & CAD Radiology Report [...] 08/18/10 1452 Sign by: ANTHONY PALOMARES MD 4-Jre-981748:14 HgA1C , Office (59151) HgA1C , Office 6.5 % (Normal) Range: 4.6 - 7.1 :14 Blood Glucose , Office (39255) Blood Glucose , Office 176 (Normal) :30 [...] CREAT 161.2 mg/dL (Normal) : VIT D,25 52438 27.7 ng/mL Range: 32.0-100.0 30 (Abnormal) Comments: Recent studies consider the lower limit of 32.0 ng/mL to tammy threshold for optimal health.Pepito ANNE. J Nutr. 2004;135(2):317- 22.Performed at: [address] [id number] 296Lab Director: Tona Emmanuel MD, Phone: [phone] : VITAMIN B12 449 pg/mL (Normal) Range: [...] {units} (Normal) Comments: PATIENT NOT FASTINGPERFORMED BY: [address] [id number] BY: [address] [id number] 0:44 Range: 0-19 Comments: Negative <20 Weak positive 20 - 39 Moderate positive 40 - 59 Strong positive >59 Comment: SPRCS (Normal) Comments: PATIENT NOT FASTINGPERFORMED BY: [address] [id number] BY: [address] [id number] 0:44 Comments: Effective April 25, 2009 order code 990570 CCP IgGAntibodies has been replaced due to an updated reagentversion 3.1. For this reason [facility] has provided youwith a new order code 984145 CCP Antibodies IgG/IgA. :44 Vitamin D Hydroxy Comments: PATIENT NOT FASTINGPERFORMED BY: [address] [id number] BY: [address] [id number] (87006) Vitamin D, 25-Hydroxy 30.9 ng/mL (Abnormal) Range: 32.0-100.0 Comments: Recent studies consider the lower limit of 32.0 ng/mL to be athreshold for optimal health.Pepito ANNE. J Nutr. 2004;135(2):317-22. 67-Zda-443068:44 SED RATE ERYTHROCYTE Comments: PATIENT NOT FASTINGPERFORMED BY: [facility] Qcekkn7811 [address] Roadblin [place] [id number] BY: [address] [id number] (49400) Sedimentation Rate-Westergren 4 mm/h (Normal) Range: 0-30 31-Xtj-031818:44 C-REACTIVE PROTEIN Comments: PATIENT NOT FASTINGPERFORMED BY: [facility] Tacfzm0365 [address]er RoadDublin [place] [id number] BY: [employer] [id number] (09339) C-Reactive Protein, Quant 2.5 mg/L (Normal) Range: 0.0-4.9 00-Pet-798903:44 TSH (99557) Comments: PATIENT NOT FASTINGPERFORMED BY: [facility] Hwdyxf8836 [address]er RoadDublin [place] [id number] BY: [employer] [id number] TSH 2.050 {uIU/mL} (Normal) Range: 0.450-4.500 62-Buk-966738:44 RHEUMATOID FACTOR-QUANT Comments: PATIENT NOT FASTINGPERFORMED BY: [facility] Outbki1625 [address]er RoadDublin [place] [id number] BY: [employer] [id number] (29794) RA Latex Turbid. 8.4 {IU/mL} (Normal) Range: 0.0-13.9 30-Pcy-137340:44 MELI (ANTINUCLEAR ANTIBODY) Comments: PATIENT NOT FASTINGPERFORMED BY: [facility] Hjfcag9214 [address]er RoadDublin [place] [id number] BY: LabCoMichael [place] 158407 [facility] [id number] (62534) MELI Direct Negative (Normal) 13-Cns-396867:44 CBC WITH MANUAL DIFF Comments: PATIENT NOT FASTINGPERFORMED BY: CB [facility] Tnsfmx7672 [facility] [id number] BY: LabCo[address] [id number] Inf ormation: ADD [id number] AND DRAW FEE 99 [id number] (06418) Immature Grans (Abs) 0.0 {x10E3/uL} (Normal) Range: [...] 3.80-5.10 WBC 6.8 {x10E3/uL} (Normal) Range: 4.0-10.5 69-Ilm-046428:44 METABOLIC PANEL, Comments: PATIENT NOT FASTINGPERFORMED BY: CB [facility] Qfzzzq[address] [place] [id number] BY: BN [facility] Rivpdbcyvj9786 [facility] [id number] COMPREHENSIVE (19185) ALT (SGPT) 21 [iU]/L (Normal) Range: 0-40 [...] (Abnormal) Range: 65-99 :33 HgA1C , Office (00224) HgA1C , Office 6.8 % (Normal) Range: 4.6 - 7.1 :33 Blood Glucose , Office (22268) Blood Glucose , Office 135 (Normal) :22 [...] CHOL 157 mg/dL (Normal) Comments: <200 mg/dL Ttsliovcg621-498 mg/dL Borderline>240 mg/dL High Risk :22 LIVER ALB 3.5 g/dL (Normal) Range: 3.4-5.0 ALK P 97 U/L (Normal) Range: 50-136 ALT 21 U/L (Normal) Range: 12-78 AST 16 U/L (Normal) Range: 15-37 D BILI 0.12 mg/dL (Normal) Range: 0.00-0.30 T BILI 0.40 mg/dL (Normal) Range: 0.00-1.00 T PROT 6.5 g/dL (Normal) Range: 6.4-8.2 :22 TSH 1.54 {uIU/mL} Range: 0.358-3.74 (Normal) :22 VIT D,25 83797 36.8 ng/mL (Normal) Range: 32.0-100.0 Comments: Recent studies consider the lower limit of 32.0 ng/mL to tammy threshold for optimal health.Pepito ANNE. J Nutr. 2004;135(2):317-22.Performed at: - LabCoDavid Ville [address] Director: Tona Emmanuel MD, Phone: [phone] :[phone] VITAMIN B12 264 pg/mL (Normal) Range: 254-1320 Comments: There is a low frequency possibility that high titers ofintrinsic blocking antibodies may not be completelyinactivated during the reaction pretreatment stepof this testing method. If test results are in conflictwith the clinical diagnosis, patient should be testedfor the presence of intrinsic factor blocking antibodies. : Amylase, Serum 92 U/L (Normal) Comments: PERFORMED BY: [employer] [id number] 34 Range: 31-124 :34 CBC With Differential/Platelet Comments: PERFORMED BY: [employer] [id number] Baso (Absolute) 0.0 {x10E3/uL} (Normal) Range: 0.0-0.2 [...] 3.80-5.10 WBC 7.5 {x10E3/uL} (Normal) Range: 4.0-10.5 67-Kwj-071674:34 Comp. Metabolic Panel (14) Comments: PERFORMED BY: [facility] Dpyurx[address] [id number] ALT (SGPT) 18 [iU]/L (Normal) Range: 0-40 [...] Serum 57 U/L (Normal) Comments: PERFORMED BY: KspliceCentraState Healthcare SystemRsrnjo[address] [id number] 13:34 Range: 0-59 03-Feb-20109:00 GALLBLADDER Radiology Report See Note (Normal) Comments: Exam Number: [id number] CLINICAL:Epigastric pain and bloating. ABDOMINAL ULTRASOUND TECHNIQUE:Transabdominal [...] hydronephrosis,etiology indeterminate. Reported By: KATHRYN MUNOZ M.D. 9-Qhw-819972:19 CBC WITH MANUAL DIFF Comments: PATIENT NOT FASTINGPERFORMED BY: [facility] [id number] Information: [id number] (68038) Baso (Absolute) 0.1 {x10E3/uL} (Normal) Range: 0.0-0.2 [...] 3.80-5.10 WBC 9.9 {x10E3/uL} (Normal) Range: 4.0-10.5 0-Yen-552563:19 METABOLIC PANEL, COMPREHENSIVE Comments: PATIENT NOT FASTINGPERFORMED BY: LabCoCentraState Healthcare SystemOrsuzu[address] [id number] (24498) ALT (SGPT) 19 [iU]/L (Normal) Range: 0-40 [...] Report See Note (Normal) Comments: Exam Number: [id number] CLINICAL:This is a 69-year-old female patient with [...] as discussed above. Reported By: TEO WAYNE 2-Bpc-202189:12 HgA1C , Office (83940) HgA1C , Office 7.1 % (Normal) Range: 4.6 - 7.1 :12 Blood Glucose , Office (97460) Blood Glucose , Office 129 (Normal) :45 [...] CHOL 155 mg/dL (Normal) Comments: <200 mg/dL Szkmynscd772-514 mg/dL Borderline>240 mg/dL High Risk :45 VIT D,25 21921 42.5 ng/mL (Normal) Range: 32.0-100.0 Comments: Recent studies consider the lower limit of 32.0 ng/mL to tammy threshold for optimal health.Beyer BW. J Nutr. 2004;135(2):317-22.Performed at: CB - [facility] [address] [id number] Director: Tona Emmanuel MD :53 LIPID HDL [...] CHOL 128 mg/dL (Normal) Comments: <200 mg/dL Iokmfmqkx055-430 mg/dL Borderline>240 mg/dL High Risk :53 MICROALB:CRE UR MALB:CREAT 19.1 {mg/g_CRE} (Normal) MICROALBUMIN,UR 29.1 mg/L (Normal) UR CREAT 152.0 mg/dL (Normal) :53 TSH 0.93 {uIU/mL} (Normal) Range: 0.358-3.74 :53 VIT D,25 94980 22.7 ng/mL (Abnormal) Range: 32.0-100.0 Comments: Recent studies consider the lower limit of 32.0 ng/mL to tammy threshold for optimal health.Beyer BW. J Nutr. 2004;135(2):317-22.Performed At: [facility] [address] [id number] :53 VITAMIN B12 337 pg/mL (Normal) Range: 254-1320 :09 HgA1C , Office (74391) HgA1C , Office 7.1 % (Normal) Range: 4.6 - 7.1 :09 Blood Glucose , Office (89281) Blood Glucose , Office 108 (Normal) 5-Vfk-731682:33 KNEE,4 OR MORE VIEWS (MT) Radiology Report See Note (Normal) Comments: Exam Number: [id number] CLINICAL:Pain X-RAY EXAMINATION RIGHT KNEE TECHNIQUE:Three view(s) [...] Report See Note (Normal) Comments: Exam Number: [id number] CLINICAL:Pain X-RAY EXAMINATION: RIGHT TIBIA AND FIBULA [...] ([place]) Radiology See Note Comments: Exam Number: [id number] CLINICAL:Pain X-RAY EXAMINATION: RIGHT FEMUR TECHNIQUE:Two views [...] Visualized femur. Reported By: RAYMOND ARRIAGA M.D. 9-Zfx-678749:43 [facility] DIGITAL & CAD Radiology Report See Note (Normal) Comments: Exam Number: [id number] MAMMOGRAM, UNILATERAL LEFT DIAGNOSTIC DIGITAL AND CAD HISTORYAbnormal mammogram, left breast. TECHNIQUEFull field digital images were obtained in left true lateral, rolledcranio caudal, and spot mediolateral oblique and craniocaudalprojections. CAD images were reviewed. The current study is compared to the examinations of March 12, 2006,and June 21, 2009. FINDINGSThere is a kdcxoymh-jz-wddpjq extent of fibroglandular parenchymapresent. There is no [...] wereal so examined with computer-aided detection software ([employer], [employer] Reported By: ANTHONY PALOMARES M.D. 55-Hnl-982878:04 [facility] DIGITAL & CAD Radiology Report See Note (Normal) Comments: Exam Number: [id number] MAMMOGRAM, BILATERAL SCREENING DIGITAL AND CAD HISTORYRoutine [...] werealso examined with computer- aided detection software ([employer], [employer] Reported By: ANTHONY PALOMARES M.D. 57-Kbk-865459:03 DEXA BONE DENSITY STUDY (HP) Radiology Report See Note (Normal) Comments: Exam Number: [id number] BONE DENSITOMETRY HISTORYOsteopenia. TECHNIQUE Bone densitometry of the lumbar spine and both hips is now beingperformed. The best criteria for evaluation of osteoporosis is theT-value, which represents the comparison of the patient's bone mass flako expected peak bone mass. For most patients, the mean T-value of H3mpngauf L4 is used to evaluate the lumbar spine. To evalua te the hip,the lower T-value of the femoral neck or total hip is used. FINDINGSIn this patient, the mean T-value of L1 through L4 is 0.3 which isnormal. Bone mineral density is measured at 18.3% greate r than te4257.Digital lateral view for evaluation of vertebral deformity [...] within normallimits. Reported By: ANTHONY PALOMARES M.D. 09-Ibx-256159:09 BRAIN/HEAD W/WO CONTRAST Radiology Report See Note (Normal) Comments: Exam Number: [id number] CLINICAL:69 year old female with altered mental [...] are present. Reported By: ANTHONY GRIER M.D. 95-Zlj-18993:02 CBCD,SMEAR DIFF CELLS COUNTED 100 (Normal) LYMPH [...] mg/dL VLDL 32 mg/dL (Normal) Range: 5-40 99-Fel-84251:02 MICROALB:CRE UR MALB:CREAT 38.4 {mg/g_CRE} (Abnormal) MICROALBUMIN,UR 47.5 mg/L (Normal) UR CREAT 123.4 mg/dL (Normal) 07-Jun-2009 VIT D,25 38604 19.7 ng/mL Range: 32.0-100.0 9:02 (Abnormal) Comments: Recent studies consider the lower limit of 32.0 ng/mL to tammy threshold for optimal health.Pepito ANNE. J Nutr. 2004;135(2):317- 22.Performed At: [facility] [place], [place] [id number] 07-Jun-2009 VITAMIN B12 328 pg/mL (Normal) Range: 254-1320 9:02 11-Feb-2009 Homocyst(e)ine, Plasma 9.8 umol/L (Normal) Comments: PERFORMED BY: [employer] [facility]ton[address] [place] [address] [id number] 14:28 Range: 0.0-15.0 11-Feb-2009 Methylmalonic Acid, 336 nmol/L (Normal) Comments: PERFORMED BY: [employer] [address] [id number] 14:28 Serum Range: 73-376 Comments: The reference range for methylmalonic acid has been set at +3sd abovethe mean for healthy blood bank donors. In the clinical assessment ofpatients with megaloblastic anemias a cutoff of +3sd provides gr eaterspecificity in the diagnosis of the vitamin deficiency states,despite the sacrifice of some sensitivity. 11-Feb-2009 TSH 2.700 {uIU/mL} Comments: PERFORMED BY: [employer] [address] [id number] 14:28 (Normal) Range: 0.450-4.500 11-Feb-2009 Vitamin B12 231 pg/mL (Normal) Comments: PERFORMED BY: [employer] [address] [id number] 14:28 Range: 211-911 2-Cmw-456735:09 HAND,MIN 3 VIEWS (MT) Radiology Report See Note (Normal) Comments: Exam Number: [id number] RIGHT WRIST CLINICAL DATAFell and injured the [...] osteoarthritis right hand. Reported By: FERNANDO TUCKER 5-Psa-461277:09 WRIST,MIN 3 VIEWS (MT) Radiology Report See Note (Normal) Comments: Exam Number: [id number] RIGHT WRIST CLINICAL DATAFell and injured the [...] PANEL, COMPREHENSIVE Comments: PATIENT WAS FASTINGPERFORMED BY: [employer] [facility] HospitalYourTeamOnlineHighlands-Cashiers Hospital [id number] (78263) A/G Ratio 1.9 (Normal) Range: 1.1-2.5 Albumin, [...] 141 mmol/L (Normal) Range: 135-145 :42 TSH (08219) Comments: PATIENT WAS FASTINGPERFORMED BY: Cswitchin [place] [id number] TSH 4.980 {uIU/mL} (Abnormal) Range: 0.450-4.500 :42 MICROALBUMIN: CREATININE RATIO Comments: PATIENT WAS FASTINGPERFORMED BY: [address] [id number] (66183) AND (42368) Creatinine, Urine 130.9 mg/dL (Normal) Range: 15.0-278.0 Microalb/Creat Ratio 66.4 {ug/mg_creat} (Abnormal) Range: 0.0-30.0 Microalbumin, Urine 86.9 ug/mL (Abnormal) Range: 0.0-17.0 :42 LIPID PANEL (67940) Comments: PATIENT WAS FASTINGPERFORMED BY: [address] [id number] Cholesterol, Total 148 mg/dL (Normal) Range: 100-199 HDL Cholesterol 42 mg/dL (Normal) Comments: According to ATP-III Guidelines, HDL-C >59 mg/dL is considered anegative risk factor for CHD. LDL Cholesterol Calc 78 mg/dL (Normal) Range: 0-99 LDL/HDL Ratio 1.9 {ratio_units} (Normal) Range: 0.0-3.2 Triglycerides 141 mg/dL (Normal) Range: 0-149 VLDL Cholesterol Priscilla 28 mg/dL (Normal) Range: 5-40 :42 CBC WITH MANUAL DIFF (70293) Comments: PATIENT WAS FASTINGClinical Information: ADD DRAW FEE 164572 ADD J 87943 PERFORMED BY: [address] [id number] Baso (Absolute) 0.1 {x10E3/uL} (Normal) Range: 0.0-0.2 [...] B-12 (CYANOCOBALAMIN) Comments: PATIENT WAS FASTINGPERFORMED BY: LabCoCentraState Healthcare SystemHxobus[address] [id number] (04876) Vitamin B12 232 pg/mL (Normal) Range: 211-911 1-Vhh-932789:06 Blood Glucose , Office (67114) Blood Glucose , Office 155 (Normal) :27 [...] (Normal) Range: 0.34-4.82 :27 HgA1C , Office (73378) Comments: done>Wf. HgA1C , Office 6.2 % (Normal) Range: 4.6 - 7.1 :27 Blood Glucose , Office (38129) Comments: done>Wf. Blood Glucose , Office 152 [...] 11.6-14.6 WBC 7.5 K/mm3 (Normal) Range: 4.4-11.0 1-Jhf-801068:55 COMP METABOLIC A/G 1.2 {RATIO} (Normal) Range: [...] for patient's is the eGFRmultiplied by 1.212. [facility] Laboratory uses the abbreviated Modification of [...] Disease W/O Kidney Disease>/= 90 Stage One Ttjutg23 - 89 Stage Two Suspect Decrease d [...] T PROT 7.3 g/dL (Normal) Range: 6.4-8.2 9-Hft-243756:55 LIPID CHOL 287 mg/dL (Abnormal) Comments: <200 [...] mg/dL VLDL 50 mg/dL (Abnormal) Range: 5-40 5-Alx-459573:55 MICROALB:CRE UR MALB:CREAT 28.3 {mg/g_CRE} (Normal) MICROALBUMIN,UR 41.7 mg/L (Normal) UR CREAT 147.6 mg/dL (Normal) 9-Dwj-784651:55 TSH 5.53 {uIU/mL} (Abnormal) Range: 0.34-4.82 08-Rkg-156225:25 TSH 0.16 {uIU/mL} (Abnormal) Range: 0.34-4.82 58-Xzl-695778:31 HgA1C , Office (26058) Comments: done km HgA1C , Office 6.5 % (Normal) Range: 4.6 - 7.1 :31 Blood Glucose , Office (69103) Comments: done km Blood Glucose , Office 128 (Normal) 07-Ulp-444881:01 TSH 5.15 {uIU/mL} (Abnormal) Range: 0.34-4.82 :12 HgA1C , Office (99189) Comments: done km HgA1C , Office 6.2 % (Normal) Range: 4.6 - 7.1 :12 Blood Glucose , Office (85857) Comments: done km Blood Glucose , Office [...] Serum 117 ng/mL (Normal) Comments: PERFORMED BY: Document AgilityHighlands-Cashiers Hospital [id number] Range: 10-291 :33 Iron and TIBC Comments: PERFORMED BY: [employer] [address] [id number] Iron Bind.Cap.(TIBC) 304 ug/dL (Normal) Range: 250-450 Iron Saturation 26 % (Normal) Range: 15-55 Iron, Serum 78 ug/dL (Normal) Range: 35-155 UIBC 226 ug/dL (Normal) Range: 150-375 : Vitamin B12 412 pg/mL (Normal) Comments: PERFORMED BY: [facility] Ezqpgf[address] [facility] [id number] 33 Range: 211-911 :56 LIPID CHOL 222 [...] (Normal) Range: 6.4-8.2 :07 HgA1C , Office (95574) Comments: done km HgA1C , Office 5.9 % (Normal) Range: 4.6 - 7.1 :07 Blood Glucose , Office (32714) Comments: done km Blood Glucose , Office [...] mg/dL (Abnormal) Range: 34-200 Comments: Performed At: [address] [id number] 52-Fal-843206:08 IRON+TIBC IRON SATURATION 17.9 % (Normal) Range: [...] mg/dL (Normal) Range: 34-200 Comments: Performed At: [address] [id number] :56 IRON+TIBC IRON SATURATION 17.1 % (Normal) [...] 1.49 INDETERMINANT > OR = 1.50 SUGGEST MS :05 CPK TOTAL 149 U/L (Normal) Comments: [...] 1.49 INDETERMINANT > OR = 1.50 SUGGEST MS 5-Lvl-882576:15 PRO TIME Comments: Precautions*: NOT APPLICABLE INR 1.0 (Normal) PROTIME 12.6 s (Normal) Range: 11.7-13.3 :15 TROPONIN-I < 0.04 ng/mL (Normal) Comments: Precautions*: NOT APPLICABLE Comments: TROPONIN-I EXPECTED VALUES < 0.50 NEGATIVE 0.50 - 1.49 INDETERMINANT > OR = 1.50 SUGGEST MS 02-Nov-20069:00 BMP Comments: COMMENTS: FEARONPrecautions*: NOT APPLICABLEINDICATE [...] 1.49 INDETERMINANT > OR = 1.50 SUGGEST MS :48 HgA1C , Office (55019) HgA1C , Office 6.4 % (Normal) Range: 4.6 - 7.1 :48 Blood Glucose , Office (60934) Blood Glucose , Office 113 (Normal) Plan [...] Indication: Double vision Double vision : Reviewed Mail Handler Sorter Letter Indication: Double vision Fatty liver : [...] BMI 36.0-36.9,adult Right hip pain : Reviewed Mail Handler Sorter Letter Indication: Right hip pain Right hip [...] (monoclonal gammopathy of unknown significance) : Reviewed Mail Handler Sorter Letter- stable and discharged from onc Indication: [...] Fall down steps, initial encounter : Reviewed Mail Handler Sorter Letter Indication: Fall down steps, initial encounter [...] infarction, unspecified Cerebral infarction, unspecified : Reviewed Mail Handler Sorter Letter Indication: Cerebral infarction, unspecified Upper respiratory [...] Planned Observations CBC, PLATELETS & AUT DIFF (93951)Indication: Other vitamin B12 deficiency anemia On: :17 Request TSH (28458)Indication: Abnormal TSH On: :38 Request T4, FREE (THYROXINE) (47007)Indication: Abnormal TSH On: :38 Request T3, FREE (TRIDOTHYRONINE) (62132)Indication: Abnormal TSH On: :38 Request ANTI-LIVER/KIDNEY MICROSOMAL ANTIBODY (21277)Indication: Elevated liver enzymes On: 24-Ash-882571:34 Request TSH (52127)Indication: Abnormal TSH On: 64-Frs-148045:31 Request T4, FREE (THYROXINE) (77445)Indication: Abnormal TSH On: 19-Sri-637867:31 Request T3, FREE (TRIDOTHYRONINE) (52217)Indication: Abnormal TSH On: 83-Isu-662373:31 Request BETA-2 MICROGLOBULIN (09571)Indication: Abnormal blood chemistry On: 95-Cnb-630544:08 Request Urinalysis, Office (76967)Indication: Urinary frequency On: 68-Swd-065486:38 Request CBC WITH MANUAL DIFF (86913)Indication: Therapeutic drug monitoring On: :57 Request Metabolic Panel, Basic (64384)Indication: Therapeutic drug monitoring On: :57 Request Methymalonic Acid, Serum (76375)Indication: Vitamin B 12 deficiency On: 08-Hbm-936633:51 Request CALCIFIDIOL (90271) VIT D 25Indication: Vitamin D deficiency, unspecified On: 46-Bvh-674599:45 Request LIPID PANEL (80248)Indication: Other and unspecified hyperlipidemia On: 68-Hwr-894692:45 Request CALCIFIDIOL (30110) VIT D 25Indication: Uncontrolled type II diabetes mellitus On: :46 Request TSH (53237)Indication: Uncontrolled type II diabetes mellitus On: :46 Request URINALYSIS, W/ MICRO (19576)Indication: Uncontrolled type II diabetes mellitus On: :46 Request MICROALBUMIN: CREATININE RATIO (05478) AND (45316)Indication: Uncontrolled type II diabetes mellitus On: :46 Request METABOLIC PANEL, COMPREHENSIVE (07571)Indication: Uncontrolled type II diabetes mellitus On: :46 Request LIPID PANEL (47884)Indication: Uncontrolled type II diabetes mellitus On: :45 Request CBC W/AUTO DIFF WBC (33727)Indication: Uncontrolled type II diabetes mellitus On: :45 Request Rapid Flu (03798 x 2)Indication: Flu-like symptoms On: 93-Qqi-086915:12 Request VITAMIN B-12 (CYANOCOBALAMIN) (60855)Indication: Vitamin B 12 deficiency On: 52-Ppc-408664:45 Request FECAL OCCULT- Tubes sent home (09437)Indication: Encounter for screening for malignant neoplasm of colon (Renamed from Special screening for malignant neoplasms, colon) On: 16-Rqk-826963:35 Request THYROXINE FREE (93262)Indication: Tachycardia On: 0-Odk-119364:04 Request FREE TRIDOTHYRONINE (T3) (53396)Indication: Tachycardia On: 9-Lhx-970652:04 Request TSH (THYROID STIMULATING HORMONE) (71649)Indication: Tachycardia On: 5-Kdc-908239:04 Request serum immunofixation (23113)Indication: MGUS (monoclonal gammopathy of unknown significance) On: 20-Ucl-612672:14 Request urine immunofixation (66161)Indication: MGUS (monoclonal gammopathy of unknown significance) On: 09-Fvh-974695:14 Request serum free light chains (22522)Indication: MGUS (monoclonal gammopathy of unknown significance) On: 85-Ogn-261227:14 Request CBC W/AUTO DIFF WBC (26724)Indication: Diabetes mellitus type 2, controlled On: :13 Request MICROALBUMIN: CREATININE RATIO (11420) AND (08623)Indication: Diabetes mellitus type 2, controlled On: 19-Eiz-712637:13 Request METABOLIC PANEL, COMPREHENSIVE (99122)Indication: Diabetes mellitus type 2, controlled On: 08-Sdf-239775:13 Request LIPID PANEL (76849)Indication: Mixed hyperlipidemia On: 84-Rdw-349889:13 Request VITAMIN B-12 (CYANOCOBALAMIN) (93147)Indication: Other vitamin B12 deficiency anemia On: :12 Request CBC (AUTO) ([id number])Indication: Other vitamin B12 deficiency anemia On: :12 Request Vitamin D Hydroxy ([id number])Indication: Vitamin D deficiency, unspecified On: :12 Request LIPID PANEL ([id number])Indication: Mixed hyperlipidemia On: 0-Fqm-919596:42 Request METABOLIC PANEL, COMPREHENSIVE ([id number])Indication: Benign essential hypertension (Renamed from Benign essential HTN) On: 7-Cnv-715695:41 Request MICROALBUMIN: CREATININE RATIO ([id number]) AND ([id number])Indication: Benign essential hypertension (Renamed from Benign essential HTN) On: 0-Oza-613800:41 Request SPEP ([id number])Indication: Anemia, unspecified On: 67-Fnc-404993:17 Request UPEP ([id number])Indication: Anemia, unspecified On: 61-Tqc-578025:17 Request CBC W/AUTO DIFF WBC (22621)Indication: Iron (Fe) deficiency anemia On: 0-Ing-414645:38 Request TSH ([id number])Indication: Acquired hypothyroidism On: 4-Ycb-204766:38 Request TSH (68541)Indication: Acquired hypothyroidism On: 70-Hmi-190833:34 Request SPEP (05563)Indication: Iron (Fe) deficiency anemia On: 82-Fdt-963033:34 Request UPEP (40443)Indication: Iron (Fe) deficiency anemia On: 97-Dxv-255342:34 Request IRON BINDING CAPACITY (TIBC) (51141)Indication: Iron (Fe) deficiency anemia On: :34 Request FERRITIN ([id number])Indication: Iron (Fe) deficiency anemia On: :34 Request IRON ([id number])Indication: Iron (Fe) deficiency anemia On: :34 Request CBC, PLATELETS & AUT DIFF (73027)Indication: Other vitamin B12 deficiency anemia On: :34 Request VITAMIN B-12 (CYANOCOBALAMIN) (56433)Indication: Other vitamin B12 deficiency anemia On: :33 Request Hemoglobin Glyclated (HGB A1C) (54633)Indication: Diabetes mellitus type 2, controlled On: :33 Request CBC, PLATELETS & AUT DIFF (74415)Indication: Other vitamin B12 deficiency anemia On: : Request VITAMIN B-12 (CYANOCOBALAMIN) (03906)Indication: Other vitamin B12 deficiency anemia On: :30 Request METABOLIC PANEL, COMPREHENSIVE (09090)Indication: Benign essential hypertension (Renamed from Benign essential HTN) On: :30 Request LIPID PANEL (79578)Indication: Other and unspecified hyperlipidemia On: :30 Request Vitamin D Hydroxy (01640)Indication: Vitamin D deficiency, unspecified On: : Request DVGDL-QWJYYQTDVSS-JNTSR (39771)Indication: Fatty liver On: :30 Request BFVWN-BFSESJLBUHX-ILETY ([id number])Indication: Fatty liver On: :24 Request LIPID PANEL (08755)Indication: Mixed hyperlipidemia On: :23 Request TSH (32361)Indication: Acquired hypothyroidism On: :23 Request MICROALBUMIN: CREATININE RATIO (42439) AND (32105)Indication: Diabetes mellitus type 2, controlled On: :23 Request METABOLIC PANEL, COMPREHENSIVE (48436)Indication: Diabetes mellitus type 2, controlled On: :23 Request Vitamin D Hydroxy (93330)Indication: Vitamin D deficiency, unspecified On: : Request CBC, PLATELETS & AUT DIFF (35313)Indication: Other vitamin B12 deficiency anemia On: :20 Request VITAMIN B-12 (CYANOCOBALAMIN) (47183)Indication: Other vitamin B12 deficiency anemia On: 55-Itk-320238:20 Request Vitamin D Hydroxy (18448)Indication: Vitamin D deficiency, unspecified On: :38 Request VITAMIN B-12 (CYANOCOBALAMIN) (09570)Indication: Other vitamin B12 deficiency anemia On: : Request CBC W/AUTO DIFF WBC (82342)Indication: Other vitamin B12 deficiency anemia On: : Request TSH (23516)Indication: Acquired hypothyroidism On: : Request LIPID PANEL (40351)Indication: Mixed hyperlipidemia On: Request BYBOY-WKNOJSCAXKH-FJPQO (59143)Indication: Fatty liver On: : Request PTT (Activated Partial Thromboplastin Time) (88470)Indication: Fatty liver On: : Request PT (Prothrobim Time) (93664)Indication: Fatty liver On: : Request Vitamin D Hydroxy (70904)Indication: Vitamin D deficiency, unspecified On: : Request VITAMIN B-12 (CYANOCOBALAMIN) (78909)Indication: Other vitamin B12 deficiency anemia On: : Request CBC W/AUTO DIFF WBC (43755)Indication: Diabetes mellitus type 2, controlled On: : Request METABOLIC PANEL, COMPREHENSIVE (77897)Indication: Diabetes mellitus type 2, controlled On: : Request LIPID PANEL (30531)Indication: Mixed hyperlipidemia On: : Request LIPID PANEL (44727)Indication: HYPERTENSION, NOS On: :40 Request CBC WITH MANUAL DIFF ([id number])Indication: HYPERTENSION, NOS On: :40 Request METABOLIC PANEL, COMPREHENSIVE (38868)Indication: HYPERTENSION, NOS On: :40 Request FECAL OCCULT- Tubes sent home (25196)Indication: Anemia, unspecified On: Request IRON ([id number])Indication: Anemia, unspecified On: 27-Uic-802844:38 Request CBC WITH MANUAL DIFF ([id number])Indication: HYPERTENSION, NOS On: 1-Zna-046848:29 Request METABOLIC PANEL, COMPREHENSIVE (01790)Indication: Uncontrolled type II diabetes mellitus On: 8-Eit-171398:28 Request TSH (THYROID STIMULATING HORMONE) (09935)Indication: Acquired hypothyroidism On: 99-Vxa-363785:08 Request HgA1C , Office (79824)Indication: Diabetes mellitus type 2, controlled On: 16-Rdl-047384:55 Request VITAMIN B-12 (CYANOCOBALAMIN) (09193)Indication: Other vitamin B12 deficiency anemia On: 5-Rvo-294869:17 Request LIPID PANEL (72185)Indication: Other and unspecified hyperlipidemia On: 4-Zcz-300732:17 Request MICROALBUMIN: CREATININE RATIO (51043) AND (20874)Indication: Uncontrolled type II diabetes mellitus On: 9-Nyt-563300:17 Request METABOLIC PANEL, COMPREHENSIVE (40719)Indication: Uncontrolled type II diabetes mellitus On: 0-Nvx-259421:17 Request HgA1C , Office (43180)Indication: Diabetes mellitus type 2, controlled On: 28-Irh-730124:25 Request LIPID PANEL (47207)Indication: Other and unspecified hyperlipidemia On: 70-Eti-454235:11 Request METABOLIC PANEL, COMPREHENSIVE (30625)Indication: Diabetes mellitus type 2, controlled On: 20-Btn-879144:11 Request MICROALBUMIN: CREATININE RATIO (19658) AND (71665)Indication: Diabetes mellitus type 2, controlled On: 71-Stw-842548:11 Request VITAMIN B-12 (CYANOCOBALAMIN) (22543)Indication: Other vitamin B12 deficiency anemia On: 62-Tpq-085422:11 Request CBC, PLATELETS & AUT DIFF (33417)Indication: Other vitamin B12 deficiency anemia On: 50-Oyu-380038:11 Request Vitamin D Hydroxy (77575)Indication: Vitamin D deficiency, unspecified On: 75-Fta-746750:10 Request Blood Glucose , Office (23299)Indication: Diabetes mellitus type 2, controlled On: :29 Request LIPID PANEL (99459)Indication: Other and unspecified hyperlipidemia On: :26 Request Vitamin D Hydroxy (57455)Indication: Vitamin D deficiency, unspecified On: 3-Vwy-339469:26 Request VITAMIN B-12 (CYANOCOBALAMIN) (68196)Indication: Other vitamin B12 deficiency anemia On: : Request METABOLIC PANEL, COMPREHENSIVE (66073)Indication: Benign essential hypertension (Renamed from Benign essential HTN) On: :26 Request MICROALBUMIN: CREATININE RATIO (55384) AND (81938)Indication: Uncontrolled type II diabetes mellitus On: : Request Sputum Culture (11409)Indication: Chronic cough On: 7-Tcd-168789:58 Request RANI CULTURE-OTHER (56933)Indication: Sore throat On: 08-Qdr-975705:06 Request Urinalysis, Office (92826)Indication: Abnormal urine On: :14 Request RANI CULTURE-OTHER (08007)Indication: Abnormal urine On: 0-Ade-056537:14 Request CCP ANTIBODY (79636)Indication: History of poliomyelitis (Renamed from H/O acute poliomyelitis) On: : Request ANTI-Sm (ANTI [place] ANTIBODY) (38512) test code [id number]: History of poliomyelitis (Renamed from H/O acute poliomyelitis) On: : Request RHEUMATOID FACTOR-QUANT (86781) test code 824029Gnvdmkyjmn: History of poliomyelitis (Renamed from H/O acute poliomyelitis) On: :22 Request Vitamin D Hydroxy (63684)Indication: Vitamin D deficiency, unspecified On: 52-Nqw-591361:15 Request LIPID PANEL (46306)Indication: Other and unspecified hyperlipidemia On: :15 Request TSH (73180)Indication: Acquired hypothyroidism On: 12-Swv-272451:15 Request METABOLIC PANEL, COMPREHENSIVE (60447)Indication: Diabetes mellitus type 2, controlled On: 58-Gam-941985:14 Request VITAMIN B-12 (CYANOCOBALAMIN) (45483)Indication: Other vitamin B12 deficiency anemia On: 03-Bul-625737:08 Request MICROALBUMIN: CREATININE RATIO (06146) AND (53370)Indication: Uncontrolled type II diabetes mellitus On: 92-Bto-666496:30 Request METABOLIC PANEL, COMPREHENSIVE (84437)Indication: Uncontrolled type II diabetes mellitus On: 98-Xje-145611:30 Request TSH (46836)Indication: Acquired hypothyroidism On: 19-Mru-183884:30 Request Vitamin D Hydroxy (11425)Indication: Vitamin D deficiency, unspecified On: 51-Vrl-152098:30 Request LIPID PANEL (17856)Indication: Other and unspecified hyperlipidemia On: 52-Izj-664936:29 Request LIPID PANEL (70186)Indication: Other and unspecified hyperlipidemia On: 91-Obm-082162:51 Request TSH (94634)Indication: Acquired hypothyroidism On: 42-Pih-001994:50 Request Vitamin D Hydroxy (86841)Indication: Vitamin D deficiency, unspecified On: 73-Fbb-465605:50 Request CBC WITH MANUAL DIFF ([id number])Indication: Diabetes mellitus type 2, controlled On: :50 Request METABOLIC PANEL, COMPREHENSIVE (45514)Indication: Diabetes mellitus type 2, controlled On: :50 Request Vitamin D Hydroxy (99936)Indication: Vitamin D deficiency, unspecified On: :44 Request VITAMIN B-12 (CYANOCOBALAMIN) (14807)Indication: Other vitamin B12 deficiency anemia On: :44 Request CBC WITH MANUAL DIFF ([id number])Indication: Anemia, unspecified On: :43 Request METABOLIC PANEL, COMPREHENSIVE (47728)Indication: Diabetes mellitus type 2, controlled On: 55-Jrz-205619:43 Request MICROALBUMIN: CREATININE RATIO (92802) AND (39961)Indication: Diabetes mellitus type 2, controlled On: :43 Request LIPID PANEL (30029)Indication: Other and unspecified hyperlipidemia On: 95-Xci-842531:43 Request TSH ([id number])Indication: Acquired hypothyroidism On: :43 Request Vitamin D Hydroxy (07860)Indication: Vitamin D deficiency, unspecified On: :03 Request LIPID PANEL (91271)Indication: Other and unspecified hyperlipidemia On: :03 Request CBC WITH MANUAL DIFF (30339)Indication: Diabetes mellitus type 2, controlled On: :02 Request METABOLIC PANEL, COMPREHENSIVE (74303)Indication: Diabetes mellitus type 2, controlled On: 3-Vdo-383765:02 Request VITAMIN B-12 (CYANOCOBALAMIN) (82473)Indication: Other vitamin B12 deficiency anemia On: :36 Request Comments: Lot #[id number]/13Site-left deltoidDose-1 mlgiven by: Dani Rivera LPN LIPID PANEL (71034)Indication: Other and unspecified hyperlipidemia On: : Request METABOLIC PANEL, COMPREHENSIVE (80158)Indication: Uncontrolled type II diabetes mellitus On: : Request TSH (38552)Indication: Acquired hypothyroidism On: : Request Vitamin D Hydroxy (74539)Indication: Vitamin D deficiency, unspecified On: : Request CBC WITH MANUAL DIFF (66062)Indication: Anemia, unspecified On: : Request CBC WITH MANUAL DIFF (75136)Indication: Other vitamin B12 deficiency anemia On: :20 Request Blood Glucose , Office (77934)Indication: Uncontrolled type II diabetes mellitus On: :15 Request Comments: 149 HgA1C , Office (84231)Indication: Uncontrolled type II diabetes mellitus On: :15 Request METABOLIC PANEL, COMPREHENSIVE (51363)Indication: Other and unspecified hyperlipidemia On: :22 Request LIPID PANEL (72331)Indication: Other and unspecified hyperlipidemia On: :22 Request TSH (85579)Indication: Acquired hypothyroidism On: 23-Mzm-948994:22 Request HEMOGLOBIN GLYCLATED (HGB A1C) (08436)Indication: Abnormal glucose tolerance test On: 64-Zdd-262562:20 Request VITAMIN B-12 (CYANOCOBALAMIN) (84812)Indication: Other vitamin B12 deficiency anemia On: 08-Xsk-165806:17 Request Vitamin D Hydroxy (65999)Indication: Vitamin D deficiency, unspecified On: 7-Mqi-934664:21 Request VITAMIN B-12 (CYANOCOBALAMIN) (00461)Indication: Other vitamin B12 deficiency anemia On: 1-Kdk-786023:20 Request LIPID PANEL (77770)Indication: Abnormal glucose tolerance test On: 8-Eot-342061:20 Request CBC WITH MANUAL DIFF ([id number])Indication: Abnormal glucose tolerance test On: :20 Request METABOLIC PANEL, COMPREHENSIVE (28724)Indication: Abnormal glucose tolerance test On: :20 Request METABOLIC PANEL, COMPREHENSIVE (80754)Indication: Abnormal glucose tolerance test On: 4-Cql-555320:59 Request CBC WITH MANUAL DIFF (77452)Indication: Abnormal glucose tolerance test On: :59 Request Vitamin D Hydroxy (02462)Indication: Vitamin D deficiency, unspecified On: :59 Request VITAMIN B-12 (CYANOCOBALAMIN) (40607)Indication: Other vitamin B12 deficiency anemia On: :59 Request TSH (16078)Indication: Acquired hypothyroidism On: 3-Gto-576808:58 Request LIPID PANEL (41542)Indication: Other and unspecified hyperlipidemia On: :58 Request CCP ANTIBODY (28113)Indication: Pain in unspecified joint On: 30-Qky-861488:22 Request VITAMIN B-12 (CYANOCOBALAMIN) (68568)Indication: Other vitamin B12 deficiency anemia On: 4-Jdb-740934:10 Request Vitamin D Hydroxy (97954)Indication: Vitamin D deficiency, unspecified On: 2-Htp-784306:10 Request MICROALBUMIN: CREATININE RATIO (30074) AND (36620)Indication: Uncontrolled type II diabetes mellitus On: 7-Mkm-032238:10 Request CBC WITH MANUAL DIFF (99185)Indication: Uncontrolled type II diabetes mellitus On: 5-Vug-339059:10 Request METABOLIC PANEL, COMPREHENSIVE (15526)Indication: Benign essential hypertension (Renamed from Benign essential HTN) On: 3-Pun-250313:09 Request LIPID PANEL (25897)Indication: Other and unspecified hyperlipidemia On: 0-Rgm-177139:09 Request TSH (56294)Indication: Acquired hypothyroidism On: 7-Fsd-251062:39 Request VITAMIN B-12 (CYANOCOBALAMIN) (22685)Indication: Other vitamin B12 deficiency anemia On: 4-Bis-836262:37 Request HEPATIC FUNCTION PANEL (27274)Indication: Other and unspecified hyperlipidemia On: 7-Lzo-264606:36 Request LIPID PANEL (31404)Indication: Other and unspecified hyperlipidemia On: 5-Xxf-652072:36 Request Vitamin D Hydroxy (16962)Indication: Vitamin D deficiency, unspecified On: 1-Vax-239121:36 Request METABOLIC PANEL, COMPREHENSIVE (01132)Indication: Benign essential hypertension (Renamed from Benign essential HTN) On: :35 Request LIPID PANEL (55538)Indication: Other and unspecified hyperlipidemia On: :35 Request Vitamin D Hydroxy (10467)Indication: Vitamin D deficiency, unspecified On: :30 Request Vitamin D Hydroxy (56080)Indication: Vitamin D deficiency, unspecified On: 71-Gtz-331512:10 Request MICROALBUMIN: CREATININE RATIO (86832) AND (38238)Indication: Uncontrolled type II diabetes mellitus On: 37-Dme-265887:07 Request LIPID PANEL (15166)Indication: Other and unspecified hyperlipidemia On: 66-Cpz-999668:07 Request TSH (63430)Indication: Acquired hypothyroidism On: 89-Zeh-013405:07 Request VITAMIN B-12 (CYANOCOBALAMIN) (80013)Indication: Other vitamin B12 deficiency anemia On: 66-Shv-515423:42 Request Vitamin D Hydroxy (61241)Indication: Vitamin D deficiency, unspecified On: 81-Lga-353265:50 Request IRON BINDING CAPACITY (TIBC) (99531)Indication: Iron (Fe) deficiency anemia On: 66-Uve-636337:50 Request LDH (LD) (LACTATE DEHYDROGENASE) (56457)Indication: Iron (Fe) deficiency anemia On: 24-Xne-532391:50 Request FERRITIN (13414)Indication: Iron (Fe) deficiency anemia On: 82-Ruk-762027:50 Request IRON (99677)Indication: Iron (Fe) deficiency anemia On: 09-Opz-216005:50 Request CBC WITH MANUAL DIFF (34047)Indication: Iron (Fe) deficiency anemia On: 11-Lnx-264410:50 Request HEPATIC FUNCTION PANEL (25184)Indication: Other and unspecified hyperlipidemia On: 13-Cpb-691349:44 Request LIPID PANEL (87558)Indication: Other and unspecified hyperlipidemia On: :44 Request CBC WITH MANUAL DIFF (59242)Indication: Other vitamin B12 deficiency anemia On: 3-Zlf-071366:54 Request MICROALBUMIN: CREATININE RATIO (47844) AND (08487)Indication: Glucose intolerance (no malabsorption) On: 1-Mpu-426184:54 Request METABOLIC PANEL, COMPREHENSIVE (48163)Indication: HYPERTENSION, NOS On: 7-Iyo-755970:54 Request LIPID PANEL (18365)Indication: Other and unspecified hyperlipidemia On: 7-Rjn-702678:53 Request VITAMIN B-12 (CYANOCOBALAMIN) (87289)Indication: Other vitamin B12 deficiency anemia On: :53 Request IRON (03187)Indication: Iron (Fe) deficiency anemia On: :53 Request Vitamin D Hydroxy (01648)Indication: Osteopenia On: :49 Request Methylmalonic acid, serum 86261Xjtxtlxozi: Other vitamin B12 deficiency anemia On: 56-Hsg-945765:03 Request VITAMIN B-12 (CYANOCOBALAMIN) (59154)Indication: Other vitamin B12 deficiency anemia On: :03 Request TSH (36854)Indication: Acquired hypothyroidism On: :03 Request HgA1C , Office (69258)Indication: Abnormal glucose tolerance test On: 8-Fef-049470:06 Request TSH (82763)Indication: Acquired hypothyroidism On: :35 Request LIPID PANEL (52341)Indication: Other and unspecified hyperlipidemia On: :35 Request METABOLIC PANEL, COMPREHENSIVE (49360)Indication: SOB (shortness of breath) on exertion On: :34 Request CBC WITH MANUAL DIFF (05892)Indication: SOB (shortness of breath) on exertion On: :34 Request TSH (25337)Indication: Acquired hypothyroidism On: 1-Lku-447153:46 Request Comments: do in 6 weeks TSH (84115)Indication: Acquired hypothyroidism On: 38-Ueu-472745:15 Request Comments: DO IN 6 WEEKS WITH MEDICATION CHANGE TSH (63474)Indication: Other malaise and fatigue On: 62-Goz-71146:49 Request Iron Binding Capacity (TIBC) (61167)Indication: Iron (Fe) deficiency anemia On: 78-Ile-453745:43 Request Ferritin (91857)Indication: Iron (Fe) deficiency anemia On: :43 Request Iron (12987)Indication: Iron (Fe) deficiency anemia On: :43 Request HEPATIC FUNCTION PANEL (11427)Indication: Mixed hyperlipidemia On: :42 Request LIPID PANEL (16860)Indication: Mixed hyperlipidemia On: :42 Request Comments: do in 3 months HEPATIC FUNCTION PANEL (61364)Indication: Mixed hyperlipidemia On: :11 Request LIPID PANEL (62577)Indication: Mixed hyperlipidemia On: 4-Ibk-089920:11 Request Comments: do in 3 mo TSH (43286)Indication: Acquired hypothyroidism On: :23 Request VITAMIN B-12 (CYANOCOBALAMIN) (29112)Indication: Anemia, unspecified On: :23 Request LDH (LD) (LACTATE DEHYDROGENASE) (84834)Indication: Anemia, unspecified On: :23 Request RETICULOCYTE COUNT MANUL (86837)Indication: Anemia, unspecified On: :23 Request IRON BINDING CAPACITY (TIBC) (48340)Indication: Anemia, unspecified On: :23 Request IRON (16715)Indication: Anemia, unspecified On: :23 Request FOLIC ACID SERUM (11090)Indication: Anemia, unspecified On: :23 Request HAPTOGLOBIN (96563)Indication: Anemia, unspecified On: :23 Request FERRITIN (93426)Indication: Anemia, unspecified On: :23 Request CBC, PLATELETS & AUT DIFF (82295)Indication: Anemia, unspecified On: :23 Request HgA1C , Office (51782)Indication: Abnormal glucose tolerance test On: :03 Request CBC with manual diff (29398)Indication: Anemia, unspecified On: 30-Vmu-819508:49 Request HgA1C , Office (74775)Indication: Abnormal glucose tolerance test On: 08-Tty-077373:30 Request Comments: controlled URINALYSIS W/O MICRO (16654)Indication: HYPERTENSION, NOS On: :03 Request TSH ([id number])Indication: Acquired hypothyroidism On: :03 Request MICROALBUMIN URINE QUANT (71815)Indication: HYPERTENSION, NOS On: :03 Request METABOLIC PANEL, COMPREHENSIVE (61033)Indication: HYPERTENSION, NOS On: :03 Request LIPID PANEL (74001)Indication: HYPERTENSION, NOS On: : Request CBC WITH MANUAL DIFF ([id number])Indication: HYPERTENSION, NOS On: : Request Planned Encounters Medical; 2 Week FU - On: 31-Jul-2018 12:00 [facility] Doris Navarro DO, DO, Doris Jay DO Planned Procedures Radiology - Lumbar SpineBy: Melanie On: 24-Jun-2018 Intent Doris KEBEDE DO, Doris Jay DO Aerosol Treatment (17983)By: On: 14-Apr-2018 Intent Thelma Sofia Comments: Lungs clear after albuterol aerosol treatment Ultrasound - LiverBy: Melanie KEBEDE, On: 21-Nov-2017 Intent Doris Navarro DO, Doris Jay DO B 12 Injection, 1000 mcg ([id number])By: On: 21-Nov-2017 Doris Guerrero DO, DO, Comments: Vitamin b12 1000mcg injection lot:[id number]:04/2019L DELT IMpt tolerated well [facility],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 Doris Jay DO PHYSICAL THERAPY (58795)By: [place] On: 28-Oct-2017 Intent Thelma Radiology - Hip - LeftBy: [place], On: 28-Oct-2017 Intent Thelma Aerosol Treatment (74027)By: Melanie On: 07-Aug-2017 Intent Doris KEBEDE DO, Kathleen Comments: more a/e less nois e Doris Navarro DO Spirometry (78413)By: Melanie KEBEDE, On: 07-Aug-2017 Intent Doris Jay DO Comments: really poor techniq DO, Doris Radiology - Chest- PA and LatBy: On: 07-Aug-2017 Intent Melanie DO, Doris Melanie DO, Doris Melanie DO, Doris IV Needle placement (34592)By: On: 02-Aug-2017 Intent Melanie DO, Doris Melanie DO, Doris Melanie DO, Doris INFUSION, NORMAL SALINE SOLUTION , On: 02-Aug-2017 Intent 1000 CC (Special Coverage Comments: lot:[id number]:02-26-2019rte:right anticubdose:1000ml given by:david Snow, CARYN Instructions Apply. See MCM: 2048) ([id number])By: Melanie KEBEDE, Doris Melanie DO, Doris Melanie DO, Doris INFUSION, NORMAL SALINE SOLUTION , On: 01-Aug-2017 Intent 1000 CC (Special Coverage Comments: lot:[id number]:02-26-2019rte:IV left anticubdose:1000ml NS given by:david Snow, 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 Instructions Apply. See MCM: 2048) ([id number])By: Marcia Britton Aerosol Treatment (86748)By: Melanie On: 01-Aug-2017 Intent DO, Doris Navarro DO, Doris Comments: more a/e less junky sounding Doris Navarro DO PNEUM VAC ADLT/IMUMNOSPR, SBC/INTRM On: 25-Apr-2017 Intent (32031)By: Doris Navarro DO Comments: 0.5cc given sq lt arm lot [id number] exp 09/05/18 Melanie KEBEDE, Doris Navarro DOJdDoris INTENSIVE BEHAVIORAL THERAPY TO On: 25-Apr-2017 Intent REDUCE CARDIOVASCULAR DISEASE RISK, INDIVIDUAL, ZHXW-KX-BUOA, ANNUAL, 15 MINUTES (G0446)By: Doris Navarro DO Melanie DO, Doris Melanie DO, Doris [id number]-[id number] BEHAVIORAL COUNSELING On: 25-Apr-2017 Intent FOR OBESITY, 15 MINUTES (G0447)By: Doris Navarro DO DO, Doris Navarro DODoris B 12 Injection, 1000 mcg (J3420)By: On: 25-Apr-2017 Intent Doris Navarro DO DO, Comments: 1 ml given lt arm lot [id number] exp 8/18 Doris Melanie DO, Doris ELECTROCARDIOGRAM, COMPLETE (ECG) On: 25-Apr-2017 Intent (84603)By: Doris Navarro DO Comments: nsr no acute chg Melanie DO, Doris Melanie DO, Doris B 12 Injection, 1000 mcg ([id number])By: On: 14-Mar-2017 Intent Melanie DO, Doris Melanie DO, Comments: lot [id number] 09/16left [id number] mcgas, 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 Doris Melanie DO, Doris B 12 Injection, 1000 mcg ([id number])By: On: 31-Dec-2016 Intent Melanie DO, Doris Melanie DO, Comments: [id number], 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 Doris Melanie DO, Doris B 12 Injection, 1000 mcg ([id number])By: On: 20-Sep-2016 Intent Melanie DO, Doris Melanie DO, Comments: lot:[id number]: 11/13Dose: 1,000 mcgSite: R dltdLocation; IMby:, 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 Doris Melanie DO, Doris Solu- Medrol Injection, 125mg On: 20-Aug-2016 Intent ([id number])By: Doris Navarro DO Comments: lot: [id number]: 01/14site/route: LGM/IMamt:2mLVIS signed when applicableChelsea, ACCOUNTS CLERK Melanie DO, Doris Melanie DO, Doris Aerosol Treatment (75028)By: Melanie On: 20-Aug-2016 Intent DO, Doris Melanie DO, Doris Comments: albulterol 0.83%relistedned nad more a/e less noise Melanie DO, Doris B 12 Injection, 1000 mcg ([id number])By: On: 20-Aug-2016 Intent Melanie DO, Doris Melanie DO, Comments: lot: [id number]: ite/route: L del/IMamt: 1mLVIS signed when applicableChelsea, ACCOUNTS CLERK Doris Melanie DO, Doris Spirometry (74772)By: Melanie KEBEDE, On: 16-Aug-2016 Intent Doris Melanie DO, Doris Melanie Comments: ok stable - DO Doris Aerosol Treatment ([id number])By: Melanie On: 16-Aug-2016 Intent Doris KEBEDE DO, Kathleen Comments: albulterol 0.83%more a.e stil some niose in RUL -- junky and easy to cough Doris Navarro DO Solu- Medrol Injection, 125mg On: 16-Aug-2016 Intent ([id number])By: Doris Navarro DO Comments: lot [id number] mgright gm, IMas 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 Melanie DO, Doris Melanie DO, Doris B 12 Injection, 1000 mcg ([id number])By: On: 20-Jul-2016 Intent Doris Navarro DO, DO, Comments: B12lot:[id number]:ite:rt deltroute:IMdose:1mlD.HAY Valentin Melanie DODoris Solu- Medrol Injection, 125mg On: 20-Jul-2016 Intent ([id number])By: Doris Navarro DO Comments: lot: [id number]: 01/14site/route: RGM/IMamt: 2mLVIS signed when applicableChelsSIMI jamison Melanie DO, Doris Melanie DO, Doris Aerosol Treatment (43338)By: Melanie On: 20-Jul-2016 Intent Doris KEBEDE DO, Kathleen Comments: less wheeze good a/e- less irritability with breathing Doris Navarro DO Radiology - Chest- PA and LatBy: On: 20-Jul-2016 Intent Doris Navarro DO Melanie DO, Doris MelanieDoris driscoll DO Spirometry (83024)By: Melanie KEBEDE, On: 20-Jul-2016 Intent Doris Jay DO Comments: mild restriction =- poor curve and technique Doris KEBEDE ELECTROCARDIOGRAM, COMPLETE (ECG) On: 20-Jul-2016 Intent (53749)By: Doris Navarro DO Comments: sinus braden no acute chg Melanie DODoris Melanie DO, Doris B 12 Injection, 1000 mcg (J3420)By: On: 29-May-2016 Intent Melanie DO, Doris Melanie DO, Comments: Lot:[id number]:11/13Dose:1mlRoute:IMSite:joe geigerGiven By:SAADIA signed Doris Melanie DO, Doris Flu Vaccine (Quadrivalent) 94757Tu: On: 29-May-2016 Intent Melanie DO, Doris Melanie DO, Comments: Lot:[id number]:01/25/17Dose:0.5mLRoute:IMSite:L DltdGiven By:SAADIA signed Doris Melanie DO, Doris B 12 Injection, 1000 mcg (J3420)By: On: 21-May-2016 Intent Melanie DO, Doris Melanie DO, Doris Melanie DO, Doris B 12 Injection, 1000 mcg (J3420)By: On: 18-May-2016 Intent Melanie DO, Doris Mealnie DO, Comments: B12lot:[id number]:ite:rt deltroute:IMdose:1mlD.HAY Valentin Doris Melanie DO, Doris B 12 Injection, 1000 mcg (J3420)By: On: 11-May-2016 Intent Melanie DO, Doris Melanie DO, Comments: lot [id number] [facility] dltdaCARYN milligan Doris Melanie DO, Doris [...] 09-Apr-2016 Intent REDUCE CARDIOVASCULAR DISEASE RISK, INDIVIDUAL, XYOO-NO-IBCR, ANNUAL, 15 MINUTES (G0446)By: Melanie DO, Doris Melanie DO, Doris Melanie DO, Doris OAEC-[facility]SELING On: 09-Apr-2016 Intent FOR OBESITY, 15 MINUTES (G0447)By: Melanie DO, Doris Melanie DO, Doris Melanie DO, Doris MAMMOGRAM, SCREENING, BOTH BREAST On: 09-Apr-2016 Intent ([id number])By: Melanie DO, Doris Melanie DO, Doris Melanie DO, Doris DEXA SCAN AXIAL SKELETON ([id number])By: On: 09-Apr-2016 Intent Melanie DO, Doris Melanie [...] Comments: Lot:[id number]:04/14Dose:1mlRoute:IMSite:l armGiven By:SAADIA signed Aerosol Treatment ([id number])By: Alexy On: 03-Aug-2015 Intent DO, Maggie A B 12 Injection, 1000 mcg (J3420)By: On: 17-May-2015 Intent Camelia Tracey DOa A Comments: Lot:[id number]:11/12Dose:1mlRoute:IMSite:l armGiven By:SAADIA signed Flu Vaccine (Quadrivalent) [id number]: On: 17-May-2015 Intent Camelia Tracey DOa A Comments: lot [id number]: 01/26/2016site/route L sol, IMamt 0.5mlVIS and ABN signed when applicableChelsea, CMAFM4 ADMINISTRATION OF INFLUENZA VIRUS On: 17-May-2015 Intent VACCINE (G0008)By: Camelia Tracey DOa A B 12 Injection, 1000 mcg (J3420)By: On: 15-Feb-2015 Intent Kanika Georges Comments: Lot:[id number]:11.16Route:IMSite:R deltoidDose: 1 mLgiven by: Kanika Georges CMA DANIEL (Ankle Brachial Index) On: 08-Feb-2015 Intent ([id number])By: Camelia Tracey DOa A Radiology - Lumbar SpineBy: Alexy KEBEDE, On: 08-Feb-2015 Intent Maggie A Ultrasound - ThyroidBy: Alexy KEBEDE, On: 09-Nov-2014 Intent Maggie A B 12 Injection, 1000 mcg (J3420)By: On: 09-Nov-2014 Intent Alexy KEBEDE Maggie A Comments: lot [id number] mcgleft dltdIMas, 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 Radiology - Chest- PA and LatBy: On: 13-Sep-2014 Intent Alexy KEBEDE Maggie A Comments: call stat Pulse Oximetry ([id number])By: Alexy KEBEDE On: 13-Sep-2014 Intent Maggie Armstrong Comments: 97% Inhaler Demonstration ([id number])By: On: 07-Sep-2014 Intent Kimberley Loyd CNP Radiology - Chest- PA and LatBy: On: 14-Jul-2014 Intent Maggie Tracey DO Comments: call rsults Spirometry ([id number])By: Alexy KEBEDE, On: 14-Jul-2014 Intent Maggie Armstrong Comments: good effort and curve mild rest /obst Prevnar 13 ([id number])By: Alexy KEBEDE, On: 30-Jun-2014 Intent Maggie Armstrong Comments: lot [id number] 09/2015location L armroute imgiven by - msmithVIS and/or ABN signed MAMMOGRAM, SCREENING, BOTH BREAST On: 14-Apr-2014 Intent ([id number])By: Maggie Tracey DO B 12 Injection, 1000 mcg (J3420)By: On: 14-Apr-2014 Intent Maggie Tracey DO Comments: Lot #:[id number] date:mount given:1mlRoute: IMSite given: left deltoidGiven by: HAY Zavala Cartoid DopplerBy: Maggie Tracey DO On: 14-Apr-2014 Intent Eprescribed prescriptions (G8553)By: On: 07-Oct-2013 Intent Maggie Tracey DO DXA, BONE DENSITY, AXIAL SKELETON On: 20-Jul-2013 Intent ([id number])By: Maggie Tracey DO Comments: aug Pelvic and Breast, Medicare On: 20-Jul-2013 Intent (G0101)By: Maggie Tracey DO Cartoid DopplerBy: Maggie Tracey DO On: 07-Jul-2013 Intent Eprescribed prescriptions (G8553)By: On: 07-Jul-2013 Intent Raiza Ortiz FLU VAC, SPLIT, >3 YEARS, INTRAMUSC On: 04-May-2013 Intent ([id number])By: Maritza Cantor Comments: lot [id number] 2014site/route L sol, IMamt 0.5mlVIS and ABN signed when applicableChelsea, [facility] ADMINISTRATION OF INFLUENZA VIRUS On: 04-May-2013 Intent VACCINE (G0008)By: Manchak, Maritza Radiology - Hip - LeftBy: Alexy KEBEDE, On: 07-Apr-2013 Intent Maggie Armstrong Eprescribed prescriptions (G8553)By: On: 07-Apr-2013 Intent Raiza Ortiz Eprescribed prescriptions (G8553)By: On: 05-Jan-2013 Intent Raiza Ortiz Spirometry ([id number])By: Alexy KEBEDE, On: 01-Dec-2012 Intent Maggie Armstrong Comments: good effort and curve normal Radiology - Chest- PA and LatBy: On: 01-Dec-2012 Intent Maggie Tracey DO Comments: stat call wet read Eprescribed prescriptions (G8553)By: On: 01-Dec-2012 Intent Raiza Ortiz Pulse Oximetry ([id number])By: Angel, On: 01-Dec-2012 Intent Raiza Comments: 98% Eprescribed prescriptions (G8553)By: On: 27-Nov-2012 Intent Melanie DO, Doris Melanie DO, Doris Melanie DO, Doris MAMMOGRAM, SCREENING, BOTH BREASTS On: 29-Sep-2012 Intent ([id number])By: Maggie Tracey DO EKG ([id number])By: Raiza Ortiz On: 29-Sep-2012 Intent Comments: ekg- 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 axis and no acute st t wave changes Eprescribed prescriptions (G8553)By: On: 29-Sep-2012 Intent Raiza Ortiz Eprescribed prescriptions (G8553)By: On: 03-Sep-2012 Intent Raiza Ortiz Eprescribed prescriptions (G8553)By: On: 30-Jul-2012 Intent Raiza Ortiz B 12 Injection, 1000 mcg (J3420)By: On: 23-Jun-2012 Intent Maggie Tracey DO Comments: Lot:[id number]:Dose:1mlRoute:IMSite:Anuel Bauer By:SAADIA signed Eprescribed prescriptions (G8553)By: On: 23-Jun-2012 Intent Raiza Ortiz B 12 Injection, 1000 mcg (J3420)By: On: 25-Mar-2012 Intent Maricruz Rivera LPN Comments: Lot #[id number]-06/10Site-right deltoidDose-1 mlgiven by: Dani Rivera LPN Eprescribed prescriptions (G8553)By: On: 25-Mar-2012 Intent Alexy DO Maggie A FLU VAC, SPLIT, >3 YEARS, INTRAMUSC On: 25-Mar-2012 Intent ([id number])By: Patsy Leslie LPN Comments: Lot/Exp: [id number], 12/2011Given in L Dltd, IMPrefilled SyringeBy CARYN Garner ADMINISTRATION OF INFLUENZA VIRUS On: 25-Mar-2012 Intent VACCINE (G0008)By: Patsy Leslie LPN Echo CompleteBy: Fast DO, Maggie A On: 07-Dec-2011 Intent B 12 Injection, 1000 mcg (J3420)By: On: 07-Dec-[address] - OtherBy: Fast DO, Maggie A On: 03-Oct-2011 Intent Comments: get cta of carotid arteries TDAP VACCINE >7 IM ([id number])By: On: 03-Oct-2011 Intent Raiza Ortiz B 12 Injection, 1000 mcg (J3420)By: On: 07-Sep-2011 Intent Raiza Ortiz Comments: Lot #[id number]-07/09Site-left deltoidDose-1 mlgiven by: Dani Rivera LPN Cartoid DopplerBy: Fast DO, Maggie A On: 07-Sep-2011 Intent Comments: in september DXA, BONE DENSITY, AXIAL SKELETON On: 07-Sep-2011 Intent ([id number])By: Fast DO Maggie A MAMMOGRAM, SCREENING, BOTH BREASTS On: 07-Sep-2011 Intent ([id number])By: Fast DO Maggie A Aerosol Treatment ([id number])By: Ciesa On: 08-Aug-2011 Intent Kimberley LOVE EKG (20675)By: Raiza Ortiz On: 06-Jun-2011 Intent Comments: ekg showed normal sinus rhythym, left axis, no acute st/t wave changes DXA, BONE DENSITY, AXIAL SKELETON On: 06-Jun-2011 Intent ([id number])By: Fast DO, Maggie A FLU VAC, SPLIT, >3 YEARS, INTRAMUSC On: 11-May-2011 Intent ([id number])By: Maricruz Rivera LPN Comments: Lot #[id number]/20/Site-left deltoidgiven by: Dani Rivera LPN B 12 [...] Cartoid DopplerBy: Maggie Tracey DO A On: 24-Oct-2010 Intent Pap Smear, Medicare ([id number])By: On: 05-Sep-2010 Intent Raiza Ortiz Pelvic and Breast, Medicare On: 05-Sep-2010 Intent (G0101)By: Raiza Ortiz PNEUM VAC ADLT/IMUMNOSPR, SBC/INTRM On: 03-Jul-2010 Intent ([id number])By: Maggie Tracey DO Comments: Lot #[id number]-3/10/07Site-left deltoidDose- 0.5mlgiven by:GAL ADMINISTRATION OF PNEUMOCOCCAL On: 03-Jul-2010 Intent VACCINE (G0009)By: Maggie Tracey DO MAMMOGRAM, SCREENING, BOTH BREASTS On: 03-Jul-2010 Intent ([id number])By: Maggie Tracey DO B 12 Injection, 1000 mcg (J3420)By: On: 20-Jun-2010 Intent Maggie Tracey DO Comments: Lot #[id number]-12/07Site-left deltoidDose-1 mlgiven by:[facility] B 12 Injection, 1000 mcg (J3420)By: On: 10-May-2010 Intent Apoorva Calle Comments: Lot:[id number]:12/07Dose:1000mcg/1mlRoute:IMSite:right deltoid Given by: HAY Birch FLU VAC, SPLIT, >3 YEARS, INTRAMUSC On: 10-May-2010 Intent ([id number])By: Apoorva Calle Comments: Lot:[id number]:10/2010Dose:0.5mlRoute:IMSite:Left Deltoid Given by: HAY Birch ADMINISTRATION OF INFLUENZA VIRUS On: 10-May-2010 Intent VACCINE (G0008)By: Apoorva Calle Doppler Ultrasound OtherBy: Alexy KEBEDE, On: 12-Apr-2010 Intent Maggie A Comments: both legs stat- left leg swelling- call wet read Spirometry (15635)By: Alexy KEBEDE, On: 12-Apr-2010 Intent Maggie Nathaniel Comments: good effort and curve normal B 12 Injection, 1000 mcg (J3420)By: On: 05-Apr-2010 Intent Maggie Tracey DO Ultrasound - GallbladderBy: Alexy KEBEDE, On: 01-Feb-2010 Intent Maggie A IV Needle placement (36323)By: On: 10-Jan-2010 Intent Ana Guzman Comments: IV 22 gauge inserted in right antecubital on first attempt and 0.9 NSS running without difficulty-AW INFUSION, NORMAL SALINE SOLUTION , On: 10-Jan-2010 Intent 1000 CC (Special Coverage Instructions Apply. See MCM: 2049) (J7030)By: Kimberley Loyd CNP THER/PROPH/DIAG INJ, SC/IM On: 10-Jan-2010 Intent ([id number])By: Kimberley Loyd CNP Radiology - Knee - Right - Weight On: 03-Jan-2010 Intent BearingBy: Maggie Tracey DO EKG ([id number])By: Raiza Ortiz On: 03-Jan-2010 Intent Comments: ekg showed normal sinus rhythym, left axis, no acute st/t wave changes Aerosol Treatment ([id number])By: Ruthesa On: 19-Oct-2009 Intent IVAN Kimberley Poe Cartoid DopplerBy: Maggie Tracey DO On: 14-Jun-[address] - Brain/HeadBy: Maggie Tracey DO On: 06-Jun-2009 Intent MAMMOGRAM, SCREENING, BOTH BREASTS On: 06-Jun-2009 Intent ([id number])By: Maggie Tracey DO DXA, BONE DENSITY, AXIAL SKELETON On: 06-Jun-2009 Intent ([id number])By: Maggie Tracey DO FLU VAC, SPLIT, >3 YEARS, INTRAMUSC On: 12-May-2009 Intent ([id number])By: Maricruz Rivera LPN Comments: Lot #[id number]-left deltoidgiven by:[facility] ADMINISTRATION OF INFLUENZA VIRUS On: 12-May-2009 Intent VACCINE (G0008)By: Maricruz Rivera LPN Radiology - Hand - RightBy: Alexy KEBEDE, On: 26-Jan-2009 Intent Maggie Armstrong Radiology - Wrist - RightBy: Alexy On: 26-Jan-2009 Intent Maggie KEBEDE Comments: call wet read Pulse Oximetry ([id number])By: Alexy KEBEDE, On: 27-Dec-2008 Intent Maggie Armstrong Comments: 98 Inhaler Demo (11540)By: Alexy KEBEDE, On: 27-Dec-2008 Intent Maggie A Spirometry (48737)By: Alexy KEBEDE, On: 27-Dec-2008 Intent Maggie A Comments: good effort and curve has small airways diminished Radiology - Chest- PA and LatBy: On: 27-Dec-2008 Intent Maggie Tracey DO Echo CompleteBy: Maggie Tracey DO On: 08-Nov-2008 Intent Comments: elevated bp - increase patricia EKG ([id number])By: Maggie Tracey DO On: 08-Nov-2008 Intent Comments: ekg showed normal sinus rhythym, leftl axis, no acute st/t wave changes rsr unchanged Bio Z (72289)By: Alexy KEBEDE Maggie A On: 08-Nov-2008 Intent Inhaler Demo (87306)By: Melanie KEBEDE, On: 02-Sep-2008 Intent Doris Melanie DO, Doris Melanie DO, Doris Aerosol Treatment (51025)By: Melanie On: 02-Sep-2008 Intent Doris KEBEDE Melanie DO, Doris Comments: less echoey -- better less cough Doris Navarro DO EKG (28620)By: Doris Navarro DO On: 16-Dec-2007 Intent Melanie [...] LSN TRNK/ARM/LEG On: 09-Jul-2007 Intent 0.6-1.0 CM (28308)By: Kimberley Loyd CNP BIOPSY OF SKIN LESION, SINGLE On: 09-Jul-2007 Intent ([id number])By: Kimberley Loyd CNP SHAVE SKIN LESION, TRUNK/ARM/LEG On: 02-Jul-2007 Intent ([id number])By: Kimberley Loyd CNP BIOPSY OF SKIN LESION, SINGLE On: 02-Jul-2007 Intent (77931)By: Kimberley Loyd CNP B 12 Injection, 1000 mcg (J3420)By: On: 02-Jul-2007 Intent Lashonda Lee LPN FLU VAC, SPLIT, >3 YEARS, INTRAMUSC On: 04-Jun-2007 Intent ([id number])By: Jing Cabello RN Comments: Lot #: [id number] date: 01/03Amount given: 0.5 MLRoute: IMSite given: Left deltoidGiven by: Nathaniel Beal LPN IMMUNIZ ADMNIN, 1 VAC, SNGL/COMBO On: 04-Jun-2007 Intent (34042)By: Mast Jing ALBARRAN B 12 Injection, 1000 [...] DO, Doris Melanie DO, Doris IV Infusion (75295)By: Melanie KEBEDE, On: 18-Oct-2006 Intent Doris Melanie DO, Doris Melanie DO, Doris EKG ([id number])By: Doris Navarro DO On: 10-Oct-2006 Intent Melanie [...] Injection Solution Ordered: 20-Jul-2016 Pending Melanie DO, Odris Melanie DO, Doris [...] The patient does have 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 Other providers contributing to [...] 13 steps at home. 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 The patient has noticed [...] not home- no gerd - went to [place] for artery checks and doing ok there- [...] laboratory test results: she went back to [facility] Saw Dr Shruthi Quinones- ??head [...] ER visit: note: (stroke she was at [facility] x 5days released on saturday05/22/12 to 05/27/12). The patient feels well with minor complaints, has decreased energy End: 29-May-2012 14:12 level and is sleeping well. Patient has been compliant with instructions. Current medication use: compliant with dosing regimen. Patient sleeps 7 hours per night. Nutrition: balanced diet and supplement al vitamins. [facility]: [facility]A (434.91), Benign essential hypertension (401.1), Diabetes type II,controlled no comp (250.00), Hypothyroidism (244.9), Carotid stenosis (433.10) [facility] Office Visit On: 22-May-2012 10:33 Encounter Reason: Follow up hospital - Reason for ER visit: note: (TIA. ??Patient was seen by [facility] ER x 3 times last week and then sent to [facility] for psych eval.). 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
--- OUTSIDE RECORDS SUMMARY | 2018-10-18 12:43 | XMS RPT_ITS | Continuity of Care Document ---
:1940 Author Organization [facility] Address [address] [place] [address] Phone Care Team Providers Name Role Phone Doris Navarro DO Unavailable Camacho Serrano Unavailable Flakito Morales Unavailable [facility] Unavailable Marcello Stein Unavailable Sal [...] artery stenosis (I65.23, 433.10) Comments: goes to [facility] yearly to follow Status: Active [...] related to fatty liver -- did nutrition staff counsel and wt loss / metformin and eliminate [...] days Quantity: 120 {Tablet} Refills: 3 Ordered:12-Dec-2017 rAnold Navarro DO, DO, KathleenFearon DO, Kathleen Start [...] KathleenFearon DO, Kathleen Start : 24-Jul-2018 Active Comments:fdsejL56.90 TraZODone HCl 100 MG Oral Tablet 1-1/2 [...] Start : 26-Sep-2016 End : 12-Dec-2017 Inactive [place] 5-325 MG Oral Tablet 1 q 4hrs [...] days Quantity: 120 {Tablet} Refills: 0 Ordered:11-Sep-2012 Mgagie Tracey DO Start : 11-Sep-2012 End : [...] : 07-Sep-2014 End : 13-Sep-2014 Discontinued ERGOCALCIFEROL, 16815DDKK (Oral Capsule) 1 (one) Capsule q week [...] End : 23-Jun-2012 Discontinued VITAMIN D (ERGOCALCIFEROL), 15940KREW (Oral Capsule) 1 Capsule q week for 0 days Quantity: 12 {Capsule} Refills: 2 Ordered:19-Aug-2015 Raiza Ortiz Start : 07-Apr-2013 End : 19-Aug-2015 Discontinued VITAMIN D, 39173GWPF (Oral Capsule) 1 (one) Capsule q week [...] Discharge Instruction Result: Comments: See Note; NOTES: [facility] Medical Records Department [address] [place] [address] Discharge Instruction 07/16/18 1405 MR#: [id number] Acct: [id number] Name: CLIFFORD CRUZMARICRUZ Davidson Rep #: [id number] : 1940 78 From: Johnnie Baez MD [...] Primary Care Pro vider. Call Doctors Registry ([phone]) or report to the closest Emergency Room. Call 911 if necessary. 07/16/18 9037 <Electronically signed by Johnnie Baez MD> Date Johnnie Baez MD Cosigner Signature (If Indicated): Date CC: Doris Navarro 16-Jul-2018 Emergency Department Summary Result: Comments: See Note; NOTES: [facility] Medical Records Department [address] [place] [address] Emergency Department Summary 07/16/18 1249 MR#: [id number] Acct: [id number] Name: MARICRUZ GRIGSBY Rep #: [id number] : 1940 78 From: Johnnie Baez MD PCP: oDris Navarro DO Status: DEP ER - ER Visit Summary Date of Service: 07/16/18 Chief Complaint: Nausea, vomit ing and diarrhea. History of Present Illness: The patient is a 78 F past medical history of prior stroke, hypertension wno-ssrltnn-lsyzanbdd diabetes. Patient states last 3-4 days she [...] secondary to viral gastroenteritis History of no l-jbdcytp-lrtaifmyt diabetes. This note was generated with CohesiveFT dictation software. It may contain incorrect words, [...] your Primary Care Provider. Call Doctors Registry ([phone]) or report to the closest Emergency Room. Call 911 if necessary. 07/16/18 1647 <Electronically signed by Johnnie Baez MD> Date Johnnie Baez MD Cosigner Signature ( If Indicated): Date CC: Doris Navarro DO 24-Jun-2018 L/S Spine Min 4 Views Result: Comments: See Note; NOTES: [facility] Imaging Services [address] [place] [address] L/S Spine Min 4 Views MR#: [id number] Acct: [id number] Name: MARICRUZ GRIGSBY Rep # : [id number] : 1940 F 78 From: Mack Soni MD PCP: Doris Navarro DO Status: REG CLI Study: L/S Spine Min 4 Views Date of Exam: 06/24/18 Exam# [id number] Ordering Dr: Doris Navarro DO SANDI DY: [...] support , CC: Doris Navarro DO Solar Field Service Technician: Signed 14-May-2018 Emergency Department Summary Result: Comments: See Note; NOTES: [facility] Medical Records Department [address] [place] [address] Emergency Department Summary 05/14/18 0908 MR#: [id number] Acct: [id number] Name: MARICRUZ GRIGSBY Rep #: [id number] : 1940 78 From: Zee Denise MD [...] family doctors she is re ferred to [facility] for the shoulder injury and she will return for change in symptoms and she is comfortable with this plan Treatment Plan: [] Disposition: [] Stable home Impression: [] Fall left rib fracture, left shoulder injury This note was generated with CohesiveFT dictation software. It may contain incorrect words, spelling, and punctuation that were not noted in review of the [facility] prior to signing ED Disposition - Plan for ED Patient: Chief Complaint: Fall Referrals: Doris Navarro, DO [Primary Care Provider] - What to do if you have Problems For any increased pain, sh ortness of breath, bleeding, nausea or vomiting, chest pain, or any unexpected problems, contact your Primary Care Provider. Call Doctors Registry ([phone]) or report to the closest Emergency Room. Call 911 if necessary. 05/14/18 1530 <Electronically signed by Zee Denise MD> Date Zee Denise MD Cosigner Signatur e (If Indicated): Date CC: Doris Navarro DO 14-May-2018 Discharge Instruction Result: Comments: See Note; NOTES: [facility] Medical Records Department [address] [facility] [place] [address] Discharge Instruction 05/14/18 1133 MR#: [id number] Acct: [id number] Name: CLIFFORD HOBBSFADUMOMARICRUZ L Rep #: [id number] : 1940 78 From: Zee Denise MD PCP: Doris Navarro DO Status: REG ER ED Disposition - Plan for ED Patient: Chief Complaint: Fall Instructions: ED M echanical Fall, ED Fx Rib, ED Sprain Shoulder, ED Sling Prescriptions: Hydrocodone Bitart/Apap 5-325 [[place] 5MG-325MG] 1 tab PO Q6H PRN PRN 3 Days #10 tab PRN Reason: Pain Referrals: Doris Navarro DO [Primary Care Provider] - What to do if you have Problems For any increased pain, shortness of breath, bleeding, nausea or vomiting, chest pain, or any unexpected problems, contact your Primary Car e Provider. Call Doctors Registry ([phone]) or report to the closest Emergency Room. Call 911 if necessary. 05/14/18 1134 <Electronically signed by Zee Denise MD> Date ___ Zee Denise MD Cosigner Signature (If Indicated): Date CC: Doris Navarro DO 14-May-2018 Chest PA and Lateral Result: Comments: See Note; NOTES: [facility] Imaging Services [address] [place] [address] Chest PA and Lateral MR#: [id number] Acct: [id number] Name: MARICRUZ GRIGSBY Rep #: [id number] : 1940 F 78 From: Teo Wayne MD PCP: Doris Navarro DO Status: REG ER Study: Chest PA and Lateral Date of Exam: 05/14/18 Exam# [id number] Ordering Dr: Zee Denise MD STUDY: X-RAY [...] Teo Wayne MD at 10:11 EDT Tel [phone], [employer] e support , CC: MD Sonam Denise; Doris Navarro DO Solar Field Service Technician: Signed 14-May-2018 Elbow min 3 Views Result: Comments: See Note; NOTES: [facility] Imaging Services [address] [place] [address] Elbow min 3 Views MR#: [id number] Acct: [id number] Name: MARICRUZ GRIGSBY Rep #: [id number] : 1940 F 78 From: Teo Wayne MD PCP: Doris Navarro DO Status: REG ER Study: Elbow min 3 Views Date of Exam: 05/14/18 Exam# [id number] Ordering Dr: Zee Denise MD STUD Y: [...] Teo Wayne MD at 10:12 EDT Tel [phone], Service support , CC: MD Sonam Denise; Doris Navarro DO Solar Field Service Technician: Signed 14-May-2018 Shoulder min 2 Views Result: Comments: See Note; NOTES: [facility] Imaging Services [address] [place] [address] Shoulder min 2 Views MR#: [id number] Acct: [id number] Name: MARICRUZ GRIGSBY Rep #: [id number] : 1940 F 78 From: Teo Wayne MD PCP: Doris Navarro DO Status: REG ER Study: Shoulder min 2 Views Date of Exam: 05/14/18 Exam# [id number] Ordering Dr: Zee Denise MD STUDY: X-RAY [...] Wayne MD at 11:02 EDT Tel [phone], Service support , CC: MD Sonam Denise; Doris Navarro DO Solar Field Service Technician: Signed 06-Feb-2018 History and Physical Exam Result: Comments: See Note; NOTES: [facility] Medical Records Department [address] [place] [address] History and Physical 02/06/182050 MR#: [id number] Acct: [id number] Name: MARICRUZ GRIGSBY Anuel Rep #: [id number] : 1940 77 From: María Barnes MD [...] cholecystectomy Psychiatric History: No pertinent psych hx 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 This note was generated with Tvinci software. It may contain incorrect words, spelling, and punctuation that were not noted in checking the note before signing. Code Visit OBSV E AND M: 29793 Initial observation care L3 8 2108 <Electronically signed by María Barnes MD> Date María Barnes MD Cosigner Signature: Date (if applicable) CC: María Barnes; Doris Navarro DO Signed 06-Feb-2018 Brain/Head without Contrast Result: Comments: See Note; NOTES: [facility] Imaging Services [address] [place] [address] Brain/Head without Contrast MR#: [id number] Acct: [id number] Name: MARICRUZ GRIGSBY Rep #: [id number] : 1940 F 77 From: Renata Lee MD PCP: Doris Navarro DO Status: [facility] Study: Brain/Head without Contrast Date of Exam: 02/06/18 Exam# [id number] Ordering Dr: Cameron Marte MD STUDY: CT [...] [place] ar infarct of the mid [place]. There is mild cerebellar atrophy. There is [...] CC: Doris Navarro DO; Jered Marte Solar Field Service Technician: Signed 06-Feb-2018 Chest 1 View Result: Comments: See Note; NOTES: [facility] Imaging Services [address] [place] [address] Chest 1 View MR#: [id number] Acct: [id number] Name: MARICRUZ GRIGSBY Rep #: [id number] : 1940 F 77 From: Renata Lee MD PCP: Doris Navarro DO Status: REG ER Study: Chest 1 View Date of Exam: 02/06/18 Exam# [id number] Ordering Dr: Jered Marte MD STUDY: X-RAY [...] Service support , CC: Doris Marte Solar Field Service Technician: Signed 25-Nov-2017 Liver Result: Comments: See Note; NOTES: [facility] Imaging Services [address] [place] [address] Liver MR#: [id number] Acct: [id number] Name: MARICRUZ GRIGSBY Rep #: [id number] : 1940 F 77 From: Mack Hand MD PCP: Doris Navarro DO Status: REG CLI Study: Liver Date of Exam: 11/25/17 Exam# [id number] Ordering Dr: Doris Navarro DO STUDY: ABDOMINAL [...] MD at 12:34 EDT , Service support [phone], CC: Doris Navarro DO Solar Field Service Technician: Signed 29-Oct-2017 Hip 2-3 Views with Pelvis Result: Comments: See Note; NOTES: [facility] Imaging Services [address] [place] [address] Hip 2-3 Views with Pelvis MR#: [id number] Acct: [id number] Name: CLIFFORD CRUZMARICRUZ L R ep #: [id number] : 1940 F 77 From: Benji Finch PCP: Doris Navarro DO Status: REG CLI Study: Hip 2-3 Views with Pelvis Date of Exam: 10/29/17 Exam# [id number] Ordering Dr: Thelma Sofia STUDY: X-RAY - [...] CC: QUINN Sofia; Doris Navarro DO Solar Field Service Technician: Signed 27-Aug-2017 12 Lead Electrocardiogram Result: Comments: See Note; NOTES: [facility] Cardiovascular Services [address] [place] [address] 12 Lead EKG 08/24/171718 MR#: [id number] Acct: [id number] Name: PORTIA GRIGSBY Rep #: [id number] : 1940 77 From: Maurilio Meraz MD [...] C onfirmed by SOLEDAD STREETER, MAURILIO ([id number]), publication editor STACY CARTER ([id number]) on 08/27/2017 10:37:34 AM Referred By: EITAN Confirmed By:MAURILIO MERAZ MD 08/27/17 1037 Date Maurilio Meraz MD CC: Doris Navarro DO Signed 25-Aug-2017 Emergency Department Summary Result: Comments: See Note; NOTES: [facility] Medical Records Department [address] [place] [address] Emergency Department Summary 08/24/17 170 MR#: [id number] Acct: [id number] Name: CLIFFORD HOBBSMARICRUZ THORNE Rep #: [id number] : 1940 77 From: Zee Denise MD [...] at home. She has no history of WI PE or DVT she does have history [...] be altered This note was generated with ViViFi dictation software. It may contain incorrect words, [...] your Primary Care Provider. Call Doctors Registry ([phone]) or report to the closest Emergency Room. Call 911 if necessary. 08/25/17 0001 <Electronically sig radha by Zee Denise MD> Date Zee Denise MD Cosigner Signature (If Indicated): Date CC: Doris Navarro DO 24-Aug-2017 Discharge Instruction Result: Comments: See Note; NOTES: [facility] Medical Records Department [address] [place] [address] Discharge Instruction 08/24/171819 MR#: [id number] Acct: [id number] Name: MARICRUZ GRIGSBY Rep #: [id number] : 1940 77 From: Zee Denise MD [...] your Primary Care Provider. Call Doctors Registry ([phone]) or report to the closest [facility] Room. Call 911 if necessary. 08/24/17 182 <Electronically signed by Zee Denise MD> Date Zee Denise MD Cosign er Signature (If Indicated): Date CC: Doris Navarro DO 24-Aug-2017 Chest PA and Lateral Result: Comments: See Note; NOTES: [facility] Imaging Services [address] [facility] [address] Chest PA and Lateral MR#: [id number] Acct: [id number] Name: MARICRUZ GRIGSBY Rep #: [id number] : 1940 F 77 From: Stacy Tapia MD PCP: Doris Navarro DO Status: REG ER Study: Chest PA and Lateral Date of Exam: 08/24/17 Exam# [id number] Ordering Dr: Zee Denise MD XR Chest [...] MD Sonam Denise; Doris Navarro DO Solar Field Service Technician: Signed 07-Aug-2017 Chest PA and Lateral Result: Comments: See Note; NOTES: [facility] Imaging Services [address] [place] [address] Chest PA and Lateral MR#: [id number] Acct: [id number] Name: MARICRUZ GRIGSBY Rep #: [id number] : 1940 F 77 From: Teo Wayne MD PCP: Doris Navarro DO Status: REG CLI Study: Chest PA and Lateral Date of Exam: 08/07/17 Exam# [id number] Ordering Dr: Doris Navarro DO STUDY: X-RAY [...] Logan i, MD at 13:49 EST Tel [phone], Service support , CC: Doirs Navarro DO Solar Field Service Technician: Signed 20-Nov-2016 Operative Report Result: Comments: See Note; NOTES: [facility] Medical Records Department [address] [place] [address] Operative Report 11/14/16 0736 MR#: [id number] Acct: [id number] Name: MARICRUZ BREAUX Rep #: [id number] : 1940 76 From: Liza Duron DO PCP: Doris Navarro DO Status: DEP [facility] Y Location: [facility] Report of Operation Date of Procedure: 11/14/16 Pre-Operative Diagnosi s: Right third and fourth trigger fingers Post-Operative Diagnosis: Name Surgery/Procedure Performed:: Right hand third and fourth A1 shannan release Type of Anesthesia:: Block,[place] Anesthesiologist: Fox Michaels Estimated Blood Loss (mL): [...] right arm was prepped and draped after [place] block was initiated. We marke d out [...] Dragon disclaimer This note was generated with CohesiveFT dictation software. It may contain incorrect words, spellin g, and punctuation that were not noted in checking the note before signing. 11/20/16 1231 <Electronically signed by Liza Duron DO> Date Liza Duron DO CC: Liza Duron DO; Doris Navarro DO Signed 16-Nov-2016 Oncology Progress Note Result: Comments: See Note; NOTES: [facility] Medical Records Department [address] [place] [address] Oncology Progress Note MR#: [id number] Acct: [id number] Name: PORTIA GRIGSBY Rep #: [id number] : 1940 76 From: Sal Urrutia MD [...] level. Sal Urrutia MD T: NTS JOB: [id number] 11/16/16 0850 <Electronically signed by Sal Urrutia MD> Date Sal Urrutia MD Cosigner Signature (If Indicated): Date CC: Date Dictated: 11/08/16 1305 Date Transcribed: 11/08/161304 Solar Field Service Technician: Signed 14-Nov-2016 Discharge Instruction Result: Comments: See Note; NOTES: [facility] Medical Records Department [address] [place] [address] Instructions for Home/Discharge Instructions 11/14/16 0735 MR#: [id number] Acct: [id number] Name: MARICRUZ GRIGSBY Rep #: [id number] : 1940 76 From: Liza Duron DO PCP: Doris Navarro DO Status: REG [facility] Discharge Diet: No Restrictions - keep dressing [...] mg PO DAILY 11/09/16 Hydrocodone Bitart/Apap 5-325 [[place] 5MG- 325MG] 1 - 2 tablet PO Q6H PRN PRN #20 tablet 11/14/16 The following prescriptions were given: Hydrocodone Bitart/Apap 5- 325 [[place] 5MG-325MG] 1 - 2 tablet PO Q6H PRN PRN #20 tablet PRN Reason: Pain Primary Care Physician: Doris Navarro DO [Primary Care Provider] - Please Follow Up With: Liza Duron - [phone] 11/14/16 0736 <Electronically signed by Liza Duron DO> Date Liza Duron DO CC: Doris Navarro DO 20-Jul-2016 Chest PA and Lateral Result: Comments: See Note; NOTES: [facility] Imaging Services [address] [place] [address] Verdana 4d Chest PA and Lateral MR#: [id number] Acct: [id number] Name: JAQUAN GRIGSBY Rep #: [id number] : 1940 F 76 From: Mack Hand MD PCP: Doris Navarro DO Status: REG CLI Study: Chest PA and Lateral Date of Exam: 07/20/16 Exam# [id number] Ordering Dr: Doris Navarro DO STUDY: X-RAY [...] at 12:24 EST Tel , Service support [phone], CC: Doris Navarro DO Solar Field Service Technician: Signed 26-Jan-2016 Echocardiogram Complete Result: Comments: See Note; NOTES: [facility] Cardiovascular Services [address] [place] [address] Echo Complete 01/26/16 1008 MR#: [id number] Acct: [id number] Name: MARICRUZ PARMAR Rep #: [id number] : 1940 75 From: Mack Dickerson MD Attending Dr: Maggie Tracey DO Status: REG CLI Ordering Dr: Maggie Tracey DO Date: 01/26/16 Location: [facility] Sex: F C Admitt ed: [...] Dictated: 01/26/16 1008 Date Transcribed: 01/26/161611 Solar Field Service Technician: Signed 05-Dec-2015 Chest 1 View (Portable) Result: Comments: See Note; NOTES: [facility] Imaging Services [address] [place] [address] Verdana 4d Chest 1 View (Portable) MR#: [id number] Acct: [id number] Name: MARICRUZ PEÑALOZA Rep #: [id number] : 1940 F 75 From: Yari Garcia MD PCP: Maggie Tracey DO Status: PRE ER Study: Chest 1 View (Portable) Date of Exam: 12/05/15 Exam# [id number] Ordering Dr: Johnnie Baez MD STUDY: X-RAY [...] at 16:44 EDT Tel , Service support [phone], RAD/Chest 1 V iew (Portable) IMPRESSION: Underexpansion of the lungs. Mild to moderate cardiomegaly. Electronically Signed: Yari Garcia MD at 16:44 EDT Tel , Service support , CC: Maggie Tracey DO; Johnnie Baez MD Solar Field Service Technician: Signed 05-Dec-2015 Spirometry (10322) Comments: good effort and curvenormal Result: 05-Dec-2015 EKG (57415) Comments: ekg showed normal sinus rhythym, normal axis, no acute st/t wave changes Result: [MEASUREMENTS ANALYSIS] Date of Test: 12/05/2015 14:27:41; Heart Rate: 93; SD Interval: 202; QRS: 96; QT Interval: 352; Corrected QT Interval (QTc): 409; P Wave [place]: 48; QRS Wave [place]: -26; T Wave [place] : 55; Blood Pressure: 134/64 [ECG DIAGNOSTIC STATEMENTS] Date of Test: 12/05/2015 14:27:41; Summary: Sinus Rhythm WITHIN NORMAL LIMITS 21-Sep-2015 12 Lead Electrocardiogram Result: Comments: See Note; NOTES: [facility] Cardiovascular Services [address] [place] [address] 12 Lead EKG 09/19/15 0908 MR#: [id number] Acct: [id number] Name: MARICRUZ VIGIL Rep #: [id number] : 1940 75 From: Maurilio Meraz MD [...] progression Confirmed by SOLEDAD STREETER, MAURILIO ([id number]), publication editor STACY CARTER ([id number]) on 09/21/2015 11:27:40 AM Referred By: JE Confirmed By:MAURILIO MERAZ MD 1127 Date Maurilio Meraz MD CC: Maggie Tracey DO Date Dictated: 09/19/15907 Date Transcribed: 09/19/15907 Solar Field Service Technician: Signed 19-Sep-2015 Discharge Instruction Result: Comments: See Note; NOTES: [facility] Medical Records Department [address] [place] [address] Discharge Instruction 09/19/15 1020 MR#: [id number] Acct: [id number] Name: MARICRUZ GRIGSBY Rep #: [id number] : 1940 75 From: Johnnie Baez MD [...] chest pain, or any unexpected problems, contact [facility] doctor. Call Doctors Registry ([phone]) or report to the closest Emergency Room. Call 911 if necessary. 09/19/15 0807 <Electronically signed by Johnnie Baez MD> Date __ Johnnie Baez MD Cosigner Signature (If Indicated): Date CC: Maggie Tracey DO 19-Sep-2015 Emergency Department Summary Result: Comments: See Note; NOTES: [facility] Medical Records Department [address] [place] [address] Emergency Department Summary MR#: [id number] Acct: [id number] Name: MARICRUZ GRIGSBY Rep #: [id number] : 1940 75 From: Johnnie Baez MD PCP: Maggie Tracey DO Status: [facility] ER DATE OF SERVICE: 09/19/2015 CHIEF [...] tachycardia at 112. No acute signs of [place] or ischemia. White count 11.4, H and [...] MD C C: Maggie Tracey DO T: [facility] JOB: [id number] 09/19/15 1755 <Electronically signed by Johnnie Baez MD& amp;#62; Date Johnnie Baez MD Cosigner Signature (If Indicated): Date CC: Maggie Tracey DO Date Dictated: 09/19/15 1019 Date Transcribed: 09/19/15 1019 Solar Field Service Technician: Signed 07-Sep-2015 Chest PA and Lateral Result: Comments: See Note; NOTES: [facility] Imaging Services [address] [place] [address] Verdana 4d Chest PA and Lateral MR#: [id number] Acct: [id number] Name: MARICRUZ HADLEY Anuel Rep #: [id number] : 1940 F 75 From: Kali Raymundo MD PCP: Maggie Tracey DO Status: REG CLI Study: Chest PA and Lateral Date of Exam: 09/07/15 Exam# [id number] Ordering Dr: Maggie Irwin DO STUDY: X-RAY [...] FACR at 11:41 EST , Service support [phone], RAD/Chest PA and Lateral IMPRESSION: No significant changes. Stable moderate cardiomegaly. Bilateral interstitial changes more prominent on the right. Electroni marcus Signed: Kali Raymundo MD, FACR at 11:41 EST , Service support [phone], CC: Maggie Tracey DO Solar Field Service Technician: Signed 07-Sep-2015 Spirometry (08888) Comments: good effort and curve normal Result: 24-Mar-2015 PT Discharge Summary Result: Comments: See Note; NOTES: [facility] Physical Therapy [facility] [address] [place] [address]. [address] [place] [address] Fax REHABILITATION SERVICES DISCHARGE SUMMARY MR#: [id number] Acct: [id number] Name: MARICRUZ GRIGSBY Rep #: [id number] : 1940 75 From: Yuni Clark Referring [...] discharge. Yuni Clark, PT T: NTS JOB: [id number] <Electronically signed by Yuni Clark > 03/24/15 1227 CC: Maggie Tracey DO Signed 17-Feb-2015 Inital Evaluation - PT Result: Comments: See Note; NOTES: [facility] Physical Therapy [address] [place] [address] Fax REHABILITATION SERVICES INITIAL EVALUATION MR#: [id number] Acct: [id number] Name: JOSE AHOMERO ANTHONYMARICRUZ Rep #: [id number] : 1940 75 From: Yuni Clark Referring : Maggie Tracey DO Status: REG RCR Insurance : MEDICARE PART A B Eval Date: [facility] DATE OF SERVICE: 02/16/2015 SUBJECTIVE: This [...] care. Yuni Clark, PT T: NTS JOB: [id number] <Electronically signed by Yuni Clark > 02/17/15 1011 CC: Signed For Medicare only, by seng yao this I certify the plan of care. Physicians Signature Date 08-Feb-2015 L/S Spine Min 4 Views Result: Comments: See Note; NOTES: [facility] Imaging Services [address] [place] [address] Radiology Report MR#: [id number] Acct: [id number] Name: MARICRUZ GRIGSBY Rep #: [id number] : 1940 F 74 From: Teo Wayne MD PCP: Maggie Tracey DO Status: REG CLI Study: L/S Spine Min 4 Views Date of Exam: 02/08/15 Exam# [id number] Ordering Dr: Maggie Tracey DO STUDY: X-RAY [...] Wayne MD a t 12:30 EDT Tel [phone], Service support [phone], RAD/L/S Spine Min 4 Views IMPRESSION: Degenerative changes of the spine, as detailed above. Electro nically Signed: Teo Wayne MD at 12:30 EDT Tel [phone], Service support [phone], CC: Maggie Tracey DO Solar Field Service Technician: Signed 15-Nov-2014 Thyroid Result: Comments: See Note; NOTES: [facility] Imaging Services [address] [place] [address] Ultrasound Report MR#: [id number] Acct: [id number] Name: MARICRUZ GRIGSBY Rep #: [id number] : 1940 F 74 From: Julián Trivedi DO PCP: Maggie Tracey DO Status: REG CLI Study: Thyroid Date of Exam: 11/15/14 Exam# [id number] Ordering Dr: Maggie Tracey DO STUDY: THYROID [...] Julián Trivedi DO at 16:51 EDT Tel [phone], Service support [phone], Fax CC: Maggie Tracey DO Solar Field Service Technician: Signed 13-Sep-2014 Chest PA and Lateral Result: Comments: See Note; NOTES: [facility] Imaging Services [address] [place] [address] Radiology Report MR#: [id number] Acct: [id number] Name: MARICRUZ GRIGSBY Rep #: [id number] : 1940 F 74 From: Donato Abdi MD PCP: Maggie Tracey DO Status: REG CLI Study: Chest PA and Lateral Date of Exam: 09/13/14 Exam# [id number] Ordering Dr: Maggie Tracey DO STUDY: X [...] at 12:01 EST Tel , Service support [phone], CC: Maggie Tracey DO Solar Field Service Technician: Signed 15-Jul-2014 Chest PA and Lateral Result: Comments: See Note; NOTES: [facility] Imaging Services [address] [place] [address] Radiology Report MR#: [id number] Acct: [id number] Name: CLIFFORD HOBBSFADUMOMARICRUZ Rep #: [id number] : 1940 F 74 From: Teo Wayne MD PCP: Maggie Tracey DO Status: REG CLI Study: Chest PA and Lateral Date of Exam: 07/15/14 Exam# [id number] Ordering Dr: Maggie Tracey DO SANDI DY: [...] Teo Wayne MD at 9:42 EST Tel [phone], Service support [phone], CC: Maggie Tracey DO Solar Field Service Technician: Signed 10-May-2014 Bilat Scrn Digital & CAD Result: Comments: See Note; NOTES: [facility] Imaging Services [address] [place] [address] Breast Imaging Report MR#: [id number] Acct: [id number] Name: MARICRUZ GRIGSBY #: [id number] : 1940 F 74 From: Gene Phillips PCP: Maggie Tracey DO Status: REG CLI Exam# [id number] Ordering Dr: Maggie Tracey DO MAMMOGRAPHY - [...] these [facility] ient by the facility within 30 days. Approximately 10% of breast cancers are not detected by mammography. A normal mammogram should not delay biopsy of a clinically suspicious abnormality. Electro nically Signed: Jessenia Phillips MD at 19:48 EDT Tel , Service support [phone], CC: Maggie Tracey DO Solar Field Service Technician: Signed 10-Sep-2013 Dexa Bone Density Study (HP) Result: Comments: See Note; NOTES: [facility] Imaging Services [address] [place] [address] Bone Density Report MR#: [id number] Acct: [id number] Name: MARICRUZ GRIGSBY Rep #: [id number] : 1940 F 73 From: Teo Wayne MD PCP: Maggie Tracey DO Status: REG CLI Study: Dexa Bone Density Study () Date of Exam: 09/10/13 Exam# [id number] Ordering Dr: Maggie Tracey DO STUDY: DUAL [...] M.D. at 11:04 EST , Service support [phone], CC: Maggie Tracey DO Solar Field Service Technician: Signed Immunization Name Dates Details Influenza (3 years and up) on: 04-Jun-2007 Comments: Lot #: [id number] date: 01/03Amount given: 0.5 MLRoute: IMSite given: Left deltoidGiven by: Nathaniel Beal LPN Influenza (3 years and up) on: 12-May-2009 Comments: Lot #[id number]-left deltoidgiven by:CDH Family History Unknown Family Member Name Dates Details Cancer Status: Active Diabetes Mellitus Status: Active Father Comments: [place], hypercholesterolemia Status: Active First Degree Relatives Comments: [...] kg/m2 Body Surface Area Calculated 2.03 m2 9-Fcq-451075:51 Comments: re check 142/80 Pulse 71 /min [...] kg/m2 Body Surface Area Calculated 2.01 m2 99-Jtl-556854:36 Pulse 80 /min Comments: Pattern: Regular Respiration [...] kg/m2 Body Surface Area Calculated 2.01 m2 32-Rzc-523222:06 Temperature 97.2 f Comments: Method: Temporal Pulse [...] 81mg asa orally at this time [facility]-jjf BP Systolic 156 mm[Hg] Comments: Patient Position: [...] 0.00 cm Results Date Description Value Details 37-Xgh-935085:55 Basic Metabolic Profile (BMP) Comments: [facility] [address] [place], [place], [id number] GAP 13 (Normal) Range: 5-15 CO2 25.0 [...] A.D.A. criteria.Please note revised GLUCOSE reference range rjqfjcrem33/02/2018. 70-Vtv-228539:55 CBC W/Diff, Automated Comments: [facility] [address] [place], [place], [id number] Absolute Lymph 0.98 {X10_3/ul} (Normal) Range: 0.83-4.51 [...] 4.2-5.4 WBC 9.1 K/mm3 (Normal) Range: 4.4-11.0 39-Wql-970218:50 Rapid Strep Test, Office (40245) Rapid Strep Test, Office Negative (Normal) 5-Xre-676485:58 TSH (52167) Comments: PATIENT NOT FASTINGPERFORMED BY: [employer] Cuaygc2323 FUZE [employer]![facility] [id number] TSH 5.590 {uIU/mL} (Abnormal) Range: 0.450-4.500 1-Ijz-943768:58 T4, FREE (THYROXINE) (93315) Comments: PATIENT NOT FASTINGPERFORMED BY: [employer] Zywfii4755 [employer]![facility] [id number] T4,Free(Direct) 1.81 ng/dL (Abnormal) Range: 0.82-1.77 :58 T3, FREE (TRIDOTHYRONINE) (76953) Comments: PATIENT NOT FASTINGPERFORMED BY: [employer] Envfzk4787 [address] [facility] [id number] Triiodothyronine (T3), Free 2.1 pg/mL (Normal) Range: [...] Muscle ABS Comments: Comments: ANTI-LIVER/KIDNEY MICRO AB [id number] [facility] (refer to report for specific site)refer [...] number MELI-DIRECT Negative (Normal) Comments: Performed at: [address] [id number] Director: Constantine Christianson PhD, Phone: [phone] :44 Ceruloplasmin Comments: Comments: ANTI-LIVER/KIDNEY MICRO AB [id number] [facility] (refer to report for specific site)refer to report for address and phone number CERULOPLAS 1560 22.0 mg/dL (Normal) Range: 19.0-39.0 :44 CMV Acute Antibody IgM Comments: Comments: ANTI-LIVER/KIDNEY MICRO AB [id number] [facility] (refer to report for specific site)refer to report for address and phone number CMVIgM AB < 30.0 AU/mL (Normal) Range: 0.0-29.9 Comments: Negative <30.0 Equivocal 30.0 - 34.9 Positive >34.9A positive result is generally indicative of acuteinfection, reactivation or persistent IgM production. :44 Ferritin Comments: Comments: ANTI-LIVER/KIDNEY MICRO AB [id number] [facility] [address] [place], [address] FERRITIN 236 ng/mL (Normal) Range: 8-252 :44 Free T3 Comments: Comments: ANTI-LIVER/KIDNEY MICRO AB [id number] [facility] [address] [place], [address] FREE T3 1.6 pg/mL (Abnormal) Range: 2.18-3.98 :44 GGTP 64 U/L (Abnormal) Comments: Comments: ANTI-LIVER/KIDNEY MICRO AB [id number] [facility] [address] [place], [address] Range: 5-55 :44 Hepatitis Panel Acute Comments: Comments: ANTI-LIVER/KIDNEY MICRO AB [id number] [facility] (refer to report for specific site)refer to report for address and phone number HEP C AB <0.1 {s/co_ratio} (Normal) Range: 0.0-0.9 Comments: Negative: < 0.8 Indeterminate: 0.8 - 0.9 Positive: > 0.9 The CDC recommends that a positive HCV antibody result be followed up with a HCV Nucleic Acid Amplification test (971670). HB CORE [id number] Negative (Normal) HB SURF AG Negative (Normal) HEP A IgM 6734 Negative (Normal) :44 Liver Profile Comments: Comments: ANTI-LIVER/KIDNEY MICRO AB [id number] [facility] [address] [place], [address] D BILI 0.17 mg/dL (Normal) Range: 0.00-0.30 T BILI 0.60 mg/dL (Normal) Range: 0.20-1.00 ALT 48 U/L (Normal) Range: 13-56 ALK P 93 U/L (Normal) Range: 45-117 AST 43 U/L (Abnormal) Range: 15-37 GLOB 3.5 g/dL (Normal) Range: 2.2-4.2 ALB 3.7 g/dL (Normal) Range: 3.2-5.0 T PROT 7.2 g/dL (Normal) Range: 6.4-8.2 :44 Miscellaneous Lab Procedure Comments: Comments: ANTI-LIVER/KIDNEY MICRO AB [id number] SER/RFTest(s) Ordered: ANTI-LIVER/KIDNEY MICROS AB [id number] [facility] [address] [place], [address] [facility] Comments: TEST RESULT UNITS REF INTERVALLiver- Kidney Microsomal Ab <1.0 Units 0.0 - 20.0 Negative 0.0 - 20.0 LAB (Normal) Equivocal 20.1 - 24.9 Positive >24.9LKM type 1 antibodies are detected in patients withautoimmune hepatitis type 2 and in up to 8% ofpatients wi TEST th chronic HCV infection. TESTING PERFORMED AT [facility]. ORIGINAL REPORT ON FILE IN LAB CONTAINS ADDITIONAL TEST SITE INFORMATION. :44 T4 Free Direct Comments: Comments: ANTI-LIVER/KIDNEY MICRO AB [id number] [facility] [address] [place], [address] T4 FREE DIRECT 1.06 ng/dL (Normal) Range: 0.76-1.46 :44 Thyroid Stim Hormone (TSH) Comments: Comments: ANTI-LIVER/KIDNEY MICRO AB [id number] [facility] [address] [place], [address] TSH 16.40 {uIU/mL} (Abnormal) Range: 0.358-3.74 19-Wyw-22754:44 Transferrin Comments: Comments: ANTI-LIVER/KIDNEY MICRO AB [id number] [facility] (refer to report for specific site)refer to report for address and phone number TRANSFERRN 4741 250 mg/dL (Normal) Range: 200-370 Comments: Performed at: - [facility] [id number] Director: Constantine Christianson PhD, Phone: [phone] 66-Bbl-643590:16 Bedside Glucose Comments: [facility]Point [facility]u[address] [place] [address] BEDSIDE GLU 152 mg/dL (Abnormal) Range: 70-110 Comments: MANAGEMENT OF PATIENT CARE PER NURSING PROTOCOL 75-Qmk-651677:45 Basic Metabolic Profile (BMP) Comments: [facility] [address] [place], [address] GAP 8 (Normal) Range: 5-15 [...] A.D.A. criteria.Please note revised GLUCOSE reference range nfqarhrfl71/02/2018. 58-Hmd-235815:45 CBC W/Diff, Automated Comments: [facility] [address] [place], [place], [address] Absolute Lymph 1.73 {X10_3/ul} (Normal) Range: 0.83-4.51 [...] Range: 4.4-11.0 :45 Partial Thromboplast Time Comments: [facility] [address] [place], [address] PTT 33.0 s (Normal) Range: 24.1-36.2 :45 Prothrombin Time w/INR Comments: [facility] [address] [place], [address] INR 0.9 (Normal) PROTIME 12.5 s (Normal) Range: 11.7-14.9 03-Aja-659770:45 Troponin-I Comments: [facility] [address] [place], [place], [address] TROPONIN-I < 0.015 ng/mL Comments: TROPONIN-I EXPECTED VALUES <0.045 Negative 0.045 - 0.590 Consistent with Cardiac Damage > OR = 0.600 Critical Value Not every elevated troponin is indicative of [place]. T (Normal) hesevalues should be used with clinical judgement in examiningthe patient's clinical picture for diagnosis. To establisha diagnosis of [place] versus myocardial injury, there must be ademonstrated rise and/ or fall in the troponin values, inaddition to ischemic symptoms, EKG changes, new regionalwall motion abnormality, and/or angiographical evidence. PLEASE NOTE: REFERENCE RANGES EDITED 17 Liver-Kidney <1.0 {Units} Comments: PATIENT NOT FASTINGPERFORMED BY: Sonar.me6370 [address] [facility] Medical CenterInnominate Security TechnologiesNov[facility] Health Medical [facility] [id number] 2:14 Microsomal Ab (Normal) Range: 0.0-20.0 Comments: Negative 0.0 - 20.0 Equivocal 20.1 - 24.9 Positive >24.9 . LKM type 1 antibodies are detected in patients with autoimmune hepatitis type 2 and in up to 8% of patients with chronic HCV infection. 19-Eez-699742:14 HEPATIC FUNCTION PANEL Comments: PATIENT NOT FASTINGPERFORMED BY: Sonar.me6370 [facility] [id number] (62314) ALT (SGPT) 49 [iU]/L (Abnormal) Range: 0-32 AST (SGOT) 57 [iU]/L (Abnormal) Range: 0-40 Alkaline Phosphatase 100 [iU]/L (Normal) Range: 39-117 Bilirubin, Direct 0.14 mg/dL (Normal) Range: 0.00-0.40 Bilirubin, Total 0.4 mg/dL (Normal) Range: 0.0-1.2 Albumin 4.1 g/dL (Normal) Range: 3.5-4.8 Protein, Total 6.8 g/dL (Normal) Range: 6.0-8.5 65-Nbr-488827:14 HEPATITIS PANEL (47372) Comments: PATIENT NOT FASTINGPERFORMED BY: CORTE[facility]Per[facility] Vtlmbw1579 [facility] [id number] Hep C Virus Ab <0.1 {s/co_ratio} (Normal) Range: 0.0-0.9 Comments: Negative: < 0.8 Indeterminate: 0.8 - 0.9 Positive: > 0.9 . The CDC recommends that a positive HCV antibody result be followed up with a HCV Nucleic Acid Amplification test (762474). Hep B Core Ab, IgM Negative (Normal) HBsAg Screen Negative (Normal) Hep A Ab, IgM Negative (Normal) 01-Qzt-127438:14 ANTIMITOCHONDRIAL ANTIBODY Comments: PATIENT NOT FASTINGPERFORMED BY: CORTEZ [address] [id number] (63774) Mitochondrial (M2) Antibody <20.0 {Units} (Normal) Range: 0.0-20.0 Comments: Negative 0.0 - 20.0 Equivocal 20.1 - 24.9 Positive >24.9 . Mitochondrial (M2) Antibodies are found in 90-96% of patients with primary biliary cirrhosis. 19-Qtc-349881:14 TRANSFERRIN (49496) Comments: PATIENT NOT FASTINGPERFORMED BY: CORTEZ Galindo[address] [id number] Transferrin 226 mg/dL (Normal) Range: 200-370 28-Vat-598496:14 GGT (GAMMA GLUTAMYLTRANSFERASE) Comments: PATIENT NOT FASTINGPERFORMED BY: [place] 96476[address] [facility] [id number] (89965) GGT 59 [iU]/L (Normal) Range: 0-60 21-Mzg-031046:14 FERRITIN (57270) Comments: PATIENT NOT FASTINGPERFORMED BY: [address] [id number] Ferritin, Serum 545 ng/mL (Abnormal) Range: 15-150 21-Zfk-867684:14 CMV IGM ANTBDY (99332) Comments: PATIENT NOT FASTINGPERFORMED BY: [address] [id number] Cytomegalovirus (CMV) Ab, IgM <30.0 AU/mL (Normal) Range: 0.0-29.9 Comments: Negative <30.0 Equivocal 30.0 - 34.9 Positive >34.9 A positive result is generally indicative of acute infection, reactivation or persistent IgM production. 97-Zzj-505140:14 CERULOPLASMIN (85502) Comments: PATIENT NOT FASTINGPERFORMED BY: [employer] Nlxtuk1138 [facility] [id number] Ceruloplasmin 26.3 mg/dL (Normal) Range: 19.0-39.0 11-Vfd-190751:14 ASM (ANTI SMOOTH MUSCLE Comments: PATIENT NOT FASTINGPERFORMED BY: [employer] Qvhgyh9167 [facility] [id number] ANTIBODY) (35620) Actin (Smooth Muscle) Antibody 5 {Units} (Normal) Range: 0-19 Comments: Negative 0 - 19 Weak positive 20 - 30 Moderate to strong positive >30 . Actin Antibodies are found in 52-85% of patients with autoimmune hepatitis or chronic active hepatitis and in 22% of patients with primary biliary cirrhosis. 31-Kpv-337353:14 MELI (ANTINUCLEAR ANTIBODY) Comments: PATIENT NOT FASTINGPERFORMED BY: [employer] Ijudyd4814 [facility] [id number] (52690) MELI Direct Negative (Normal) 29-Qjc-801981:33 HgA1C , Office (80673) HgA1C , Office 7.2 % (Abnormal) Range: 4.6 - 7.1 37-Srm-726208:38 MELI (ANTINUCLEAR ANTIBODY) Comments: PATIENT NOT FASTINGPERFORMED BY: IOCOMZia Health ClinicQwmfdn9581 [facility] [id number] (48087) MELI Direct Negative (Normal) 11-Zjj-314490:38 VITAMIN B-12 (CYANOCOBALAMIN) Comments: PATIENT NOT FASTINGPERFORMED BY: [employer] Jgfcho2421 [facility] [id number] (93138) Vitamin B12 463 pg/mL (Normal) Range: 232-1245 70-Pur-820446:38 TSH (76500) Comments: PATIENT NOT FASTINGPERFORMED BY: [facility] Xttpyv2987 [facility] [id number] TSH 0.062 {uIU/mL} (Abnormal) Range: 0.450-4.500 70-Qyk-150722:38 SED RATE ERYTHROCYTE (47604) Comments: PATIENT NOT FASTINGPERFORMED BY: [facility]6370 [facility] [id number] Sedimentation Rate-Westergren 7 mm/h (Normal) Range: 0-40 30-Czl-644227:38 METABOLIC PANEL, COMPREHENSIVE Comments: PATIENT NOT FASTINGPERFORMED BY: [facility]6370 [facility] [id number] (86788) ALT (SGPT) 52 [iU]/L (Abnormal) Range: 0-32 [...] 8-27 Glucose 134 mg/dL (Abnormal) Range: 65-99 53-Lyd-594550:38 C-REACTIVE PROTEIN (93975) Comments: PATIENT NOT FASTINGPERFORMED BY: [facility]6370 [facility] [id number] C-Reactive Protein, Quant 4.8 mg/L (Normal) Range: 0.0-4.9 84-Jvr-813284:38 CBC (AUTO) (76800) Comments: PATIENT NOT FASTINGPERFORMED BY: [place] 9647670 [facility] [id number] Platelets 248 {x10E3/uL} Range: 150-379 (Normal) RDW [...] mg/L (Abnormal) Comments: PATIENT NOT FASTINGPERFORMED BY: [facility]6370 [facility] [id number] BY: [address] [id number] 2:25 Serum Range: 0.6-2.4 Comments: Siemens Immulite 2000 Immunochemiluminometric assay (ICMA) 2-Qmy-842566:25 Immunoglobulins Comments: PATIENT NOT FASTINGPERFORMED BY: [place] 9647670 [facility] [id number] BY: [address] [id number] Iga/Ige/Igg/Igm (GAME) (04724) Immunoglobulin E, Total 259 {IU/mL} (Abnormal) Range: 0-100 Immunoglobulin M, Qn, Serum 113 mg/dL (Normal) Range: 26-217 Immunoglobulin A, Qn, Serum 130 mg/dL (Normal) Range: 64-422 Immunoglobulin G, Qn, Serum 837 mg/dL (Normal) Range: 700-1600 1-Led-276688:25 LDH (LD) (LACTATE Comments: PATIENT NOT FASTINGPERFORMED BY: IOCOMAnn Klein Forensic CenterTphefh5277 [facility] [id number] BY: [address] [id number] DEHYDROGENASE) (87412) LDH 195 [iU]/L (Normal) Range: 119-226 1-Kuy-118206:25 METABOLIC PANEL, Comments: PATIENT NOT FASTINGPERFORMED BY: [employer] Health ClinicVsuvft0278 [facility] [id number] BY: [employer] [id number] COMPREHENSIVE (46224) ALT (SGPT) 47 [iU]/L (Abnormal) Range: 0-32 [...] 8-27 Glucose 139 mg/dL (Abnormal) Range: 65-99 4-Cxw-964555:25 CBC, PLATELETS & AUT DIFF Comments: PATIENT NOT FASTINGPERFORMED BY: CORTEZ [employer] Ayggnz7485 [facility] [id number] BY: LabCoMark [place] 778607 [facility] [id number] (77691) Immature Grans (Abs) 0.0 {x10E3/uL} (Normal) Range: [...] 3.77-5.28 WBC 7.2 {x10E3/uL} (Normal) Range: 3.4-10.8 67-Slf-282820:28 Microscopic Examination Comments: PATIENT NOT FASTINGPERFORMED BY: IOCOMAnn Klein Forensic CenterNathdc2467 [facility] [id number] Bacteria None seen (Normal) Mucus Threads Present (Normal) Cast Type Hyaline casts (Normal) Casts Present {/lpf} (Abnormal) Epithelial Cells (non renal) 0-10 {/hpf} (Normal) Range: 0 - 10 RBC 0-2 {/hpf} (Normal) Range: 0 - 2 WBC >30 {/hpf} (Abnormal) Range: 0 - 5 04-Yhk-497170:24 URINE RANI CULTURE-RADHA COL Comments: PATIENT NOT FASTINGPERFORMED BY: [facility]6370 [facility] [id number] Information: SRC:UC COUNT (76305) Antimicrobial MIHEAD (Normal) Comments: S = Susceptible; I = Intermediate; R = Resistant P = Positive; N = Negative MICS are expressed in micrograms per mL Antibiotic RSLT#1 RSLT#2 RS Susceptibility LT#3 RSLT#4Amoxicillin/Clavulanic Acid SAmpicillin RCefepime SCeftriaxone SCefuroxime SCephalothin SCiprofloxacin SGentamicin SImipenem SNitrofurantoin SPiperacillin RTetracycline STobram ycin STrimethoprim/Sulfa S Result 1 Raoultella Comments: 5,000 Colonies/mL planticola (Abnormal) Urine Final report Culture,Comprehensive (Abnormal) 15-Vuv-531044:28 MICROALBUMIN: CREATININE RATIO Comments: PATIENT NOT FASTINGPERFORMED BY: [facility]6370 [facility] [id number] (59070) AND (92764) Alb/Creat Ratio 215.8 {mg/g_creat} (Abnormal) Range: 0.0-30.0 Albumin, Urine 245.4 ug/mL (Normal) Creatinine, Urine 113.7 mg/dL (Normal) 78-Hny-433384:28 URINALYSIS, W/ MICRO (60838) Comments: PATIENT NOT FASTINGPERFORMED BY: [facility]6370 [facility] [id number] Microscopic Examination See below: (Normal) Comments: Microscopic was indicated and was performed. Nitrite, Urine Negative (Normal) Urobilinogen,Semi-Qn 0.2 mg/dL (Normal) Range: 0.2-1.0 Bilirubin Negative (Normal) Occult Blood Negative (Normal) Ketones Negative (Normal) Glucose Trace (Abnormal) Protein 1+ (Abnormal) WBC Esterase 1+ (Abnormal) Appearance Clear (Normal) Urine-Color Yellow (Normal) pH 5.5 (Normal) Range: 5.0-7.5 Specific Allgood 1.025 (Normal) Range: 1.005-1.030 54-Pio-077837:28 METABOLIC PANEL, COMPREHENSIVE Comments: PATIENT NOT FASTINGPERFORMED BY: [facility] Fppapm8222 [facility] [id number] (81125) ALT (SGPT) 37 [iU]/L (Abnormal) Range: 0-32 [...] Glucose, Serum 179 mg/dL (Abnormal) Range: 65-99 93-Lih-655419:28 CBC, PLATELETS & AUT DIFF Comments: PATIENT NOT FASTINGPERFORMED BY: LOG[facility] DEVICESHenry [facility] Hospital6370 [facility] [id number] (15564) Immature Grans (Abs) 0.0 {x10E3/uL} (Normal) Range: [...] 3.77-5.28 WBC 9.3 {x10E3/uL} (Normal) Range: 3.4-10.8 79-Dfd-575287:28 TSH (THYROID STIMULATING Comments: PATIENT NOT FASTINGPERFORMED BY: [facility] [place] [address] [id number] HORMONE) (61713) TSH 23.220 {uIU/mL} (Abnormal) Range: 0.450-4.500 45-Cqi-647601:28 LIPID PANEL (18707) Comments: PATIENT NOT FASTINGPERFORMED BY: [address]ox RoadDublin [place] [id number] LDL/HDL Ratio 1.7 {ratio_units} (Normal) Range: 0.0-3.2 Comments: LDL/HDL Ratio Men Women 1/2 Avg.Risk 1.0 1.5 Av g.Risk 3.6 3.2 2X Avg.Risk 6.2 5.0 3X Avg.Risk 8.0 6.1 LDL Cholesterol Calc 83 mg/dL (Normal) Range: 0-99 VLDL Cholesterol Priscilla 42 mg/dL (Abnormal) Range: 5-40 HDL Cholesterol 48 mg/dL (Normal) Triglycerides 208 mg/dL (Abnormal) Range: 0-149 Cholesterol, Total 173 mg/dL (Normal) Range: 100-199 59-Sya-670364:28 CALCIFEDIOL (78525) Comments: PATIENT NOT FASTINGPERFORMED BY: LabHenry [facility] Hospital6370 [facility] [id number] Vitamin D, 25-Hydroxy 25.4 ng/mL (Abnormal) Range: 30.0-100.0 Comments: Vitamin D deficiency has been defined by the [place] of[place]icine and an Endocrine Society practice guideline as alevel of serum 25-OH vitamin D less than 20 ng/mL (1,2).The Endocrine Society went on to further define vitamin Dinsufficiency as a level between 21 and 29 ng/mL (2).1. IOM ([place] of [employer]). 2010. Dietary reference intakes for calcium and D. [place]: The National Academies Press.2. Rachel MF, Yael NC, Dunia HERRERA, et al. Evaluation, treatment, and prevention of vitamin D deficiency: an Endocrine Society clinical practice guideline. JCEM. 2010; 96(7):1911-30. 13-Bzq-274775:40 Basic Metabolic Profile (BMP) Comments: 'TROP' Serial specimen #1, #2, #3, or #4: [address] [place] [address] [address] [place], [address] GAP 11 (Normal) Range: 5-15 CO2 24.0 [...] 126 mg/dLsuggests DIABETES MELLITUS per A.D.A. criteria. 04-Aet-330278:40 BNP,B-Type NATRIURETIC PEPTIDE Comments: [facility] [address]jvqcbdl[address] [facility] [place], [place], [address] B-TYPE SANJU PEP 13.3 pg/mL (Normal) Range: 0-100 59-Xrw-555265:40 CBC W/Diff, Automated Comments: [facility] Fxdmkwslsd77[address] [facility] [place], [place], [address] Absolute Lymph 1.65 {X10_3/ul} (Normal) Range: 0.83-4.51 [...] 4.2-5.4 WBC 4.1 K/mm3 (Abnormal) Range: 4.4-11.0 31-Bkh-164145:40 Troponin-I Comments: 'TROP' Serial specimen #1, #2, #3, or #4: [address] [place] [address] Nfyzubcwyv8014 [facility] HospitaldeepikaBonsall, [place], [id number] TROPONIN-I < 0.02 ng/mL (Normal) Comments: TROPONIN-I EXPECTED VALUES <0.05 NEGATIVE 0.06 - 0.59 AT RISK OF [place] > OR = 0.60 SUGGEST WI 39-Qbb-086293:08 Microscopic Examination Comments: PATIENT WAS FASTINGPERFORMED BY: [facility] LabCoVirobay Fzgpug4368 [facility] [id number] Bacteria Few (Normal) Mucus Threads Present (Normal) Cast Type Hyaline casts (Normal) Casts Present {/lpf} (Abnormal) Epithelial Cells (non renal) 0-10 {/hpf} (Normal) Range: 0 - 10 RBC 0-2 {/hpf} (Normal) Range: 0 - 2 WBC 11-30 {/hpf} (Abnormal) Range: 0 - 5 48-Ouv-724307:08 CALCIFIDIOL (54468) VIT D 25 Comments: PATIENT WAS FASTINGPERFORMED BY: [facility] LabCoVirobay Fifodr2586 [facility] [id number] Vitamin D, 25-Hydroxy 33.5 ng/mL (Normal) Range: 30.0-100.0 Comments: Vitamin D deficiency has been defined by the [place] of[place]icine and an Endocrine Society practice guideline as alevel of serum 25-OH vitamin D less than 20 ng/mL (1,2).The Endocrine Society went on to further define vitamin Dinsufficiency as a level between 21 and 29 ng/mL (2).1. IOM ([place] of Medicine). 2010. Dietary reference intakes for calcium and D. [place]: The National Academies Press.2. Rachel MF, Yael MARLEY, Dunia HERRERA, et al. Evaluation, treatment, and prevention of vitamin D deficiency: an Endocrine Society clinical practice guideline. JCEM. 2010; 96(7):1911-30. 98-Njn-673687:08 TSH (05793) Comments: PATIENT WAS FASTINGPERFORMED BY: Vela[employer] Global CommunicationsNov[facility] Medical [facility] [id number] TSH 3.700 {uIU/mL} (Normal) Range: 0.450-4.500 16-Hzt-176644:08 LIPID PANEL (23583) Comments: PATIENT WAS FASTINGPERFORMED BY: [employer] [facility] [id number] LDL/HDL Ratio 1.8 {ratio_units} (Normal) Range: 0.0-3.2 Comments: LDL/HDL Ratio Men Women 1/2 Avg.Risk 1.0 1.5 Av g.Risk 3.6 3.2 2X Avg.Risk 6.2 5.0 3X Avg.Risk 8.0 6.1 LDL Cholesterol Calc 84 mg/dL (Normal) Range: 0-99 VLDL Cholesterol Priscilla 49 mg/dL (Abnormal) Range: 5-40 HDL Cholesterol 46 mg/dL (Normal) Triglycerides 243 mg/dL (Abnormal) Range: 0-149 Cholesterol, Total 179 mg/dL (Normal) Range: 100-199 81-Aoy-367728:08 URINALYSIS, W/ MICRO (32028) Comments: PATIENT WAS FASTINGPERFORMED BY: [employer] [facility] [id number] Microscopic Examination See below: (Normal) Comments: Microscopic was indicated and was performed. Nitrite, Urine Negative (Normal) Urobilinogen,Semi-Qn 0.2 mg/dL (Normal) Range: 0.2-1.0 Bilirubin Negative (Normal) Occult Blood Negative (Normal) Ketones Negative (Normal) Glucose Negative (Normal) Protein 2+ (Abnormal) WBC Esterase 1+ (Abnormal) Appearance Clear (Normal) Urine-Color Yellow (Normal) pH 5.5 (Normal) Range: 5.0-7.5 Specific Allgood >=1.030 (Abnormal) Range: 1.005-1.030 80-Pyy-980154:08 MICROALBUMIN: CREATININE RATIO Comments: PATIENT WAS FASTINGPERFORMED BY: [employer] [id number] ([id number]) AND (32596) Microalb/Creat Ratio 246.3 {mg/g_creat} (Abnormal) Range: 0.0-30.0 Microalbumin, Urine 433.7 ug/mL (Normal) Comments: Results confirmed ondilution. Creatinine, Urine 176.1 mg/dL (Normal) 98-Pfq-664282:08 METABOLIC PANEL, COMPREHENSIVE Comments: PATIENT WAS FASTINGPERFORMED BY: [employer]![facility] [id number] (53739) ALT (SGPT) 26 [iU]/L (Normal) Range: 0-32 [...] Glucose, Serum 158 mg/dL (Abnormal) Range: 65-99 68-Sia-873565:08 CBC W/AUTO DIFF WBC (37135) Comments: PATIENT WAS FASTINGPERFORMED BY: LabCoAnn Klein Forensic CenterQzvfkm4564 [facility] [id number] Immature Grans (Abs) 0.0 {x10E3/uL} (Normal) Range: [...] (Normal) Range: 3.4-10.8 :31 HgA1C , Office (75805) HgA1C , Office 6.6 % (Normal) Range: 4.6 - 7.1 :31 Blood Glucose , Office (04021) Blood Glucose , Office 143 (Normal) :45 CBC W/Diff, Automated Comments: [facility] [address] [place], [place], [address] Absolute Lymph 1.46 {X10_3/ul} (Normal) Range: 0.83-4.51 [...] Range: 4.4-11.0 :45 Comprehensive Metabolic Profil Comments: [facility] [address] [place], [place], [address] GAP 8 (Normal) Range: 5-15 CO2 27.0 [...] 126 mg/dLsuggests DIABETES MELLITUS per A.D.A. criteria. 4-Coj-559541:45 Prothrombin Time w/INR Comments: [facility] [address] [place], [place], [address] INR 0.9 (Normal) PROTIME 11.6 s (Abnormal) Range: 11.7-14.9 9-Ybn-020137:12 HgA1C , Office (03146) HgA1C , Office 6.5 % (Normal) Range: 4.6 - 7.1 1-Ipc-421676:12 Blood Glucose , Office (32664) Blood Glucose , Office 122 (Normal) :39 Lipid Profile Comments: [facility] [address] [place], [address] VLDL 39 mg/dL (Normal) Range: 5-40 LDL [...] report for address and phone number METHYL 504349 215 nmol/L (Normal) Range: 0-378 Comments: Performed at: [facility] Lab[address] [id number] Director: Frantz Josue MD, Phone: [phone] :[phone] Vitamin B12 531 pg/mL (Normal) Comments: [facility] [address] [place], [address] Range: 211-911 :39 Vitamin D,25 Hydroxy Comments: [facility] [address] [place], [id number] Vitamin D 25-OH 44.7 ng/mL (Normal) Comments: Vitamin D 25(OH) Status Range Deficiency <20 ng/mL (50nmol/L) Insuffciency 20 - 30 ng/mL (50 - 75 nmol/L) Sufficiency 30 - 100 ng/mL (75 - 250 nmol/L) Toxicity >100 ng/mL (>250 nmol/L) :29 Bedside Glucose Comments: [facility] LaboratoryPoint of [address]au[address] [place] [address] BEDSIDE GLU 139 mg/dL (Abnormal) Range: 70-110 Comments: No Action RequiredMANAGEMENT OF PATIENT CARE PER NURSING PROTOCOL COLON BIOPSY (CHOOSE See Note (Normal) Comments: [facility] [address] [place], [address] :54 SITE) Comments: Patient: MARICRUZ GRIGSBY : 1940 (76/F) Acct Num: [id number] Phys: NickyConstantine Unit Num: [id number] Loc: LABSPEC Specimen: [id number] Received: 11/05/16 - 1631 Spe c Type: [...] one cassette. / RY:edita 11/06/16 TC:1 CPT: 16107 x2 HEADER OPERATION: Colonoscopy with polypectomy PRE-OP [...] on file> :47 CBC W/Diff, Automated Comments: [facility] [address] [place], [place], [address] Absolute Lymph 1.88 {X10_3/ul} (Normal) Range: 0.83-4.51 [...] 4.2-5.4 WBC 8.8 K/mm3 (Normal) Range: 4.4-11.0 31-Edc-811092:42 Comprehensive Metabolic Profil Comments: Order Date: 10/10/16Order Info: 0786-1 - *CMP Complete Metabolic PanelOrder Info: 52873-6 - *IBC Iron \E AND E\ Total Iron Binding CapacityOrder Info: 2276-4 - *FerritinComments: Reason:Order Date: 10/10/16Order Info: 26134-3 - *[place]DA - [place] Lamda Light ChainsComments: Reason:[facility] [address] [place], [place], [address] GAP 9 (Normal) Range: 5-15 CO2 28.0 [...] <126 mg/dLsuggests IMPAIRED HOMEOSTASIS per A.D.A. criteria. 59-Usb-066780:42 Ferritin Comments: Order Date: 10/10/16Order Info: 0786-1 - *CMP Complete Metabolic PanelOrder Info: 26679-2 - *IBC Iron \E AND E\ Total Iron Binding CapacityOrder Info: 2276-4 - *FerritinComments: Reason:Order Date: 10/10/16Order Info: 30373-7 - *[place] - [place] Lamda Light ChainsComments: Reason:[facility] [address] [place], [place], [address] FERRITIN 45 ng/mL (Normal) Range: 8-252 96-Dcv-443332:42 DEEPALI + Protein Elect, Serum Comments: Order Date: 10/10/16Order Info: 0282-1 - *IMEL DEEPALI + Prot Elec, Serum 1495Order Info: 45560-4 - *[place] Lamda Light ChainsOrder Date: 10/10/16Order Info: 0282-1 - *IMEL DEEPALI + Prot Elec, Serum 1495Order Info: 45486-7 - *[place] - [place] Lamda Light ChainsOrder Date: 10/10/16Order Info: [id number] - *[place] - [place] Lamda Light ChainsIs Patient Fasting? NComments: Reason:[facility] (refer to report for specific site)refer to report for address and phone number NOTE: Comment (Normal) Comments: Protein electrophoresis scan will follow via computer,mail, or test engine evaluator delivery. DEEPALI RESULT,S Comment (Normal) Comments: Immunofixation shows IgG monoclonal protein with lambdalight chain specificity. A/G RATIO 1.4 (Normal) Range: 0.7-1.7 GLOBULIN, TOTAL 2.8 g/dL (Normal) Range: 2.2-3.9 M-SPIKE 0.3 g/dL (Abnormal) GAMMA GLOBULIN 0.8 g/dL (Normal) Range: 0.4-1.8 BETA GLOBULIN 0.9 g/dL (Normal) Range: 0.7-1.3 UMKFQ-1-UJAJ 0.9 g/dL (Normal) Range: 0.4-1.0 WWBVG-5-IYCK 0.2 g/dL (Normal) Range: 0.0-0.4 ALBUMIN 3.7 g/dL (Normal) Range: 2.9-4.4 IMMUNOGL M 100 mg/dL (Normal) Range: 26-217 IMMUNO A 106 mg/dL (Normal) Range: 64-422 IMMUNO G 693 mg/dL (Abnormal) Range: 700-1600 PROTEIN,TOTAL 6.5 g/dL (Normal) Range: 6.0-8.5 03-Abr-667306:42 Iron+Iron Binding Capacity Comments: Order Date: 10/10/16Order Info: 0786-1 - *CMP Complete Metabolic PanelOrder Info: 23913-7 - *IBC Iron \E AND E\ Total Iron Binding CapacityOrder Info: 2276-4 - *FerritinComments: Reason:Order Date: 10/10/16Order Info: 53488-1 - *[place] - [place] Lamda Light ChainsComments: Reason:[facility] [address] [place], [place], [address] IRON SATURATION 15.9 % (Normal) Range: 15.0-55.0 IRON 49 ug/dL (Abnormal) Range: 50-170 TIBC 309 ug/dL (Normal) Range: 250-450 07-Pwn-554487:42 [place] Lambda Light Chains Comments: Order Date: 10/10/16Order Info: 0282-1 - *IMEL DEEPALI + Prot Elec, Serum 1495Order Info: 94605-8 - *[place] - [place] Lamda Light ChainsOrder Date: 10/10/16Order Info: 0282-1 - *IMEL DEEPALI + Prot Elec, Serum 1495Order Info: 49893-3 - *[place] - [place] Lamda Light ChainsOrder Date: 10/10/16Order Info: 74586-8 - *[place] - [place] Lamda Light ChainsIs Patient Fasting? NComments: Reason:[facility] (refer to report for specific site)refer to report for address and phone number KAPPA/LAMBDA % 0.98 (Normal) Range: 0.26-1.65 Comments: Performed at: - [facility] [id number] Director: Constantine Christianson PhD, Phone: [phone] FR LAMBDA LT CH 19.06 mg/L (Normal) Range: 5.71-26.30 FR KAPPA LT CHN 18.62 mg/L (Normal) Range: 3.30-19.40 31-Xrj-589368:06 VITAMIN B-12 (CYANOCOBALAMIN) Comments: PATIENT NOT FASTINGPERFORMED BY: [facility]Co[address] [id number] (46393) Vitamin B12 709 pg/mL (Normal) Range: 211-946 13-Hfi-932300:45 Blood Glucose , Office (67643) Blood Glucose , Office 104 (Normal) 69-Avw-647850:45 HgA1C , Office (15654) HgA1C , Office 6.7 % (Normal) Range: 4.6 - 7.1 :54 CBC W/Diff, Automated Comments: [facility] [address] [place], [place], [address] Absolute Lymph 1.51 {X10_3/ul} (Normal) Range: 0.83-4.51 [...] Range: 4.4-11.0 :54 Comprehensive Metabolic Profil Comments: [facility] [address] [place], [place], [address] GAP 8 (Normal) Range: 5-15 CO2 28.0 [...] per A.D.A. criteria. :54 Lipid Profile Comments: [facility] [address] [place], [place], [address] VLDL 38 mg/dL (Normal) Range: 5-40 LDL [...] High Risk :54 Microalb:Creat Ratio,Random UR Comments: [facility] [address] [place], [place], [address] MALB:CREAT 223.2 {mg/g_CRE} (Abnormal) MICROALBUMIN,UR 250.0 mg/L (Normal) UR CREAT 112.00 mg/dL (Normal) :54 Thyroid Stim Hormone (TSH) Comments: [facility] [address] [place] [address], [address] TSH 1.13 {uIU/mL} (Normal) Range: 0.358-3.74 :54 Urinalysis, Complete Comments: How was Urine Obtained? [facility] [address] [place], [place], [address] MUCUS, URINE 0 SEEN {/hpf} (Normal) BACTERIA [...] (Normal) CLARITY Clear (Normal) COLOR Yellow (Normal) 99-Rop-09192:54 Vitamin D,25 Hydroxy Comments: [facility] [address] [place], [address] Vitamin D 25-OH 31.6 ng/mL (Normal) Comments: Vitamin D 25(OH) Status Range Deficiency <20 ng/mL (50nmol/L) Insuffciency 20 - 30 ng/mL (50 - 75 nmol/L) Sufficiency 30 - 100 ng/mL (75 - 250 nmol/L) Toxicity >100 ng/mL (>250 nmol/L) 35-Zqv-808818:07 VITAMIN B-12 (CYANOCOBALAMIN) Comments: PATIENT NOT FASTINGPERFORMED BY: Fit Fugitivesox RoadDublin [place] [id number] (75622) Vitamin B12 1119 pg/mL (Abnormal) Range: 211-946 15-Fmn-546814:23 Microscopic Examination Comments: PATIENT WAS FASTINGPERFORMED BY: Sonar.me6370 Waller RoadDublin [place] [id number] Bacteria Few (Normal) Mucus Threads Present (Normal) Epithelial Cells (non renal) 0-10 {/hpf} (Normal) Range: 0 - 10 RBC 0-2 {/hpf} (Normal) Range: 0 - 2 WBC >30 {/hpf} (Abnormal) Range: 0 - 5 14-Net-576463:23 VITAMIN B-12 (CYANOCOBALAMIN) Comments: PATIENT WAS FASTINGPERFORMED BY: Remindlin[address] Volantis SystemsDublin [place] [id number] (43959) Vitamin B12 >2000 pg/mL (Abnormal) Range: 211-946 61-Vhp-240549:23 TSH (97001) Comments: PATIENT WAS FASTINGPERFORMED BY: [employer] LabAc[employer] Wyjxdr8441 Waller RoadDublin [place] [id number] TSH 5.380 {uIU/mL} (Abnormal) Range: 0.450-4.500 60-Jxi-442940:23 URINALYSIS, W/ MICRO (45009) Comments: PATIENT WAS FASTINGPERFORMED BY: LOGIC DEVICESHenry Ford [facility]omb Hospital6370 [facility] [id number] Microscopic Examination See below: (Normal) Comments: Microscopic was indicated and was performed. Nitrite, Urine Negative (Normal) Urobilinogen,Semi-Qn 0.2 mg/dL (Normal) Range: 0.2-1.0 Bilirubin Negative (Normal) Occult Blood Negative (Normal) Ketones Negative (Normal) Glucose Negative (Normal) Protein Trace (Normal) WBC Esterase 2+ (Abnormal) Appearance Clear (Normal) Urine-Color Yellow (Normal) pH 6.0 (Normal) Range: 5.0-7.5 Specific Allgood 1.022 (Normal) Range: 1.005-1.030 46-Gnl-307468:23 MICROALBUMIN: CREATININE RATIO Comments: PATIENT WAS FASTINGPERFORMED BY: LOGIC DEVICESHenry Ford Macomb Hospital6370 [facility] [id number] (85212) AND (37733) Microalb/Creat Ratio 24.2 {mg/g_creat} (Normal) Range: 0.0-30.0 Microalbumin, Urine 35.4 ug/mL (Normal) Creatinine, Urine 146.0 mg/dL (Normal) 24-Loo-980657:23 METABOLIC PANEL, COMPREHENSIVE Comments: PATIENT WAS FASTINGPERFORMED BY: LOGIC DEVICESHenry Ford [facility]omb Hospital6370 [facility] [id number] (26512) ALT (SGPT) 25 [iU]/L (Normal) Range: 0-32 [...] Glucose, Serum 143 mg/dL (Abnormal) Range: 65-99 71-Gzp-378232:23 CBC W/AUTO DIFF WBC (44932) Comments: PATIENT WAS FASTINGPERFORMED BY: LabCoAnn Klein Forensic CenterWbucog7296 [facility] [id number] Immature Grans (Abs) 0.0 {x10E3/uL} (Normal) Range: [...] 7.4 {x10E3/uL} (Normal) Range: 3.4-10.8 :23 CALCIFIDIOL (77847) VIT D 25 Comments: PATIENT WAS FASTINGPERFORMED BY: [facility]6370 [facility] [id number] Vitamin D, 25-Hydroxy 28.9 ng/mL (Abnormal) Range: 30.0-100.0 Comments: Vitamin D deficiency has been defined by the [place]cine and an Endocrine Society practice guideline as alevel of serum 25-OH vitamin D less than 20 ng/mL (1,2).The Endocrine Society went on to further define vitamin Dinsufficiency as a level between 21 and 29 ng/mL (2).1. IOM ([place] of Medicine). 2010. Dietary reference intakes for calcium and D. [place]: The National Academies Press.2. Rachel MF, Yael NC, Dunia HERRERA, et al. Evaluation, treatment, and prevention of vitamin D deficiency: an Endocrine Society clinical practice guideline. JCEM. 2010; 96(7):1911-30. :22 HgA1C , Office (79603) HgA1C , Office 7.1 % (Normal) Range: 4.6 - 7.1 :22 Blood Glucose , Office (94304) Blood Glucose , Office 171 (Normal) 0-Cpk-367591:10 Basic Metabolic Profile (BMP) Comments: Serial Specimen #1, #2 or #3? 1'TROP' Serial specimen #1, #2, #3, or #4: [facility]WZ[facility] [address] [place], [place], [address] GAP 8 (Normal) Range: 5-15 CO2 28.0 [...] 126 mg/dLsuggests DIABETES MELLITUS per A.D.A. criteria. 1-Zvx-203980:10 CBC W/Diff, Automated Comments: [facility] [address] [place], [place], [address] Absolute Lymph 1.32 {X10_3/ul} (Normal) Range: 0.83-4.51 [...] Serial specimen #1, #2, #3, or #4: [address] [place] [address] [place] [address], [address] CKRI 1.3 % (Normal) Range: 0.0-1.4 [...] Serial specimen #1, #2, #3, or #4: [address] [place] [address] [place] [address], [address] TROPONIN-I < 0.02 ng/mL (Normal) Comments: TROPONIN-I EXPECTED VALUES <0.05 NEGATIVE 0.06 - 0.59 AT RISK OF WI > OR = 0.60 SUGGEST WI 2-Pus-476349:55 Blood Glucose , Office (85675) Blood Glucose , Office 117 (Normal) 8-Zsr-372958:36 HgA1C , Office (59835) HgA1C , Office 7.1 % (Normal) Range: 4.6 - 7.1 :52 CBC W/Diff, Automated Comments: CBCD WITH WBC PER ORDERUniversity [facility]als [facility] Center [address] [place], [address] Absolute Lymph 1.67 {X10_3/ul} (Normal) Range: 0.83-4.51 [...] Range: 4.4-11.0 :52 Comprehensive Metabolic Profil Comments: [facility] [address] [place], [place], [address] GAP 10 (Normal) Range: 5-15 CO2 26.0 [...] positive; lambda type.Performed at: CB - [facility] [address] [place] [address] 12[address]Lab Dire ctor: Constantine Christianson PhD, Phone: [phone] Immunofixation, Serum Comments: [facility] (refer to report for specific site)refer to report for address and phone number DEEPALI RESULT,S Comment (Normal) Comments: Immunofixation shows IgG monoclonal protein with lambdalight chain specificity. IMMUNOGL M 112 mg/dL (Normal) Range: 26-217 IMMUNO A 110 mg/dL (Normal) Range: 64-422 IMMUNO G 783 mg/dL (Normal) Range: 700-1600 :52 [place] Lambda Light Chains Comments: [facility] (refer to report for specific site)refer to report for address and phone number KAPPA/LAMBDA % 1.03 (Normal) Range: 0.26-1.65 FR LAMBDA LT CH 21.11 mg/L (Normal) Range: 5.71-26.30 FR KAPPA LT CHN 21.66 mg/L (Abnormal) Range: 3.30-19.40 :52 Lipid Profile Comments: [facility] [address] [facility] [place], [address] ; review OV 12/02/15 VLDL [...] High Risk :52 Microalb:Creat Ratio,Random UR Comments: [facility] [address] [place], [address] MALB:CREAT 44.5 {mg/g_CRE} (Abnormal) MICROALBUMIN,UR 68.1 mg/L (Normal) UR CREAT 153.00 mg/dL (Normal) :52 Vitamin B12 268 pg/mL (Normal) Comments: [facility] [address] [place], [address] Range: 211-911 Comments: ADDENDA: normal and has f/u this saturday:52 Vitamin D,25 Hydroxy Comments: [facility] [address] [place], [address] Vitamin D 25-OH 48.8 ng/mL (Normal) Comments: Vitamin D 25(OH) Status Range Deficiency <20 ng/mL (50nmol/L) Insuffciency 20 - 30 ng/mL (50 - 75 nmol/L) Sufficiency 30 - 100 ng/mL (75 - 250 nmol/L) Toxicity >100 ng/mL (>250 nmol/L) :15 Basic Metabolic Profile (BMP) Comments: [facility] [address] [place], [address] GAP 10 (Normal) Range: 5-15 CO2 25.0 [...] A.D.A. criteria. :15 CBC W/Diff, Automated Comments: [facility] [address] [place], [place], [address] RED CELL MORPH NORM C+C {NORMAL} (Normal) [...] (Abnormal) Range: 4.4-11.0 :08 HgA1C , Office (12604) HgA1C , Office 6.8 % (Normal) Range: 4.6 - 7.1 9-Ulf-362882:30 FERRITIN (15729) Comments: PATIENT WAS FASTINGPERFORMED BY: LabHenry [facility] Hospital6370 [facility] [id number] Ferritin, Serum 121 ng/mL (Normal) Range: 15-150 6-Fjm-416554:30 IRON (42524) Comments: PATIENT WAS FASTINGPERFORMED BY: [facility]6370 [facility] [id number] Iron, Serum 56 ug/dL (Normal) Range: 35-155 [...] - 159 >60 years 27 - 139 8-Smq-181662:30 TSH (12053) Comments: PATIENT WAS FASTINGPERFORMED BY: [facility]6370 [facility] [id number] TSH 1.660 {uIU/mL} (Normal) Range: 0.450-4.500 7-Nfa-384845:30 LIPID PANEL (07897) Comments: PATIENT WAS FASTINGPERFORMED BY: [place] 9647670 [facility] [id number] LDL/HDL Ratio 2.1 {ratio_units} (Normal) Range: 0.0-3.2 [...] Cholesterol, Total 190 mg/dL (Normal) Range: 100-199 1-Rra-777341:30 METABOLIC PANEL, COMPREHENSIVE Comments: PATIENT WAS FASTINGPERFORMED BY: LabCoAnn Klein Forensic CenterDadzem0925 [facility] [id number] (89487) ALT (SGPT) 24 [iU]/L (Normal) Range: 0-32 [...] Glucose, Serum 122 mg/dL (Abnormal) Range: 65-99 7-Lse-426065:30 Vitamin D Hydroxy (90769) Comments: PATIENT WAS FASTINGPERFORMED BY: LabCoAnn Klein Forensic CenterEsdotz9446 [facility] [id number] Vitamin D, 25-Hydroxy 25.3 ng/mL (Abnormal) Range: 30.0-100.0 Comments: Vitamin D deficiency has been defined by the [place] of[place]icine and an Endocrine Society practice guideline as alevel of serum 25-OH vitamin D less than 20 ng/mL (1,2).The Endocrine Society went on to further define vitamin Dinsufficiency as a level between 21 and 29 ng/mL (2).1. IOM ([place] of Medicine). 2010. Dietary reference intakes for calcium and D. [place]: The National Academies Press.2. Rachel MF, Yael MARLEY, Dunia HERRERA, et al. Evaluation, treatment, and prevention of vitamin D deficiency: an Endocrine Society clinical practice guideline. JCEM. 2010; 96(7):1911-30. 7-Eeg-861693:30 CBC W/AUTO DIFF WBC Comments: PATIENT WAS FASTINGPERFORMED BY: [facility] Knvhzh0014 [facility] [id number] Information: [id number] (07986) Immature Grans (Abs) 0.0 {x10E3/uL} (Normal) Range: [...] light chains Comments: PATIENT WAS FASTINGPERFORMED BY: IOCOMAnn Klein Forensic CenterQekglj7887 [facility] [id number] (37732) [place]/Lambda Ratio,S 0.81 (Normal) Range: 0.26-1.65 Free Lambda Lt Chains,S 17.93 mg/L (Normal) Range: 5.71-26.30 Free [place] Lt Chains,S 14.55 mg/L (Normal) Range: 3.30-19.40 :08 urine immunofixation (37344) Comments: PATIENT NOT FASTINGPERFORMED BY: IOCOMElizabeth Ville 9028670 [facility] [id number] Information: SRC:UR [id number] DEEPALI Interpretation:U IFEGL (Normal) Comments: 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 :30 serum immunofixation (87466) Comments: PATIENT WAS FASTINGPERFORMED BY: IOCOMAnn Klein Forensic CenterJcxojs0275 [facility] [id number] Immunoglobulin M, Qn, Serum 99 mg/dL (Normal) Range: 40-230 Immunoglobulin A, Qn, Serum 107 mg/dL (Normal) Range: 91-414 Immunoglobulin G, Qn, Serum 814 mg/dL (Normal) Range: 700-1600 Immunofixation Result, Serum IFEGL (Normal) Comments: Immunofixation shows IgG monoclonal protein with lambda light chainspecificity. :49 CBC W/Diff, Automated Comments: [facility] [address] [place], [address] Absolute Lymph 0.99 {X10_3/ul} (Normal) [...] K/mm3 (Normal) Range: 4.4-11.0 :49 Ferritin Comments: [address] [place], [place], [phone] FERRITIN 80 ng/mL (Normal) Range: 8-252 :49 Hemoglobin A1c Comments: [address] [place], [address] HGB A1C 6.4 % (Abnormal) Range: 4.2-6.3 :49 Iron Comments: [address] [place], [address] IRON 43 ug/dL (Abnormal) Range: 50-170 :49 Iron Binding Capacity,Total Comments: [address] [place], [address] TIBC 336 ug/dL (Normal) Range: 250-450 :49 Protein Electro.Ur-Random Comments: [facility] (refer to report for specific site)refer to report for address and phone number M-SPIKE,U Test not performed (Normal) GAMMA GLOB,U Test not performed (Normal) Comments: Test not performed BETA GLOB,U Test not performed (Normal) Comments: Test not performed MYWAC-6-JFZS,U Test not performed (Normal) Comments: Test not performed EHFBG-9-WLUB,U Test not performed (Normal) Comments: Test not [...] electrophoresis scan will follow via computer,mail, or test engine evaluator delivery. NOTE: Comment (Normal) Comments: The SPE [...] electrophoresis scan will follow via computer,mail, or test engine evaluator delivery. A/G RATIO 1.5 (Normal) Range: 0.7-2.0 [...] 6.0-8.5 :49 Thyroid Stim Hormone (TSH) Comments: [facility] [address] [place], [place], [address] TSH 4.43 {uIU/mL} (Abnormal) Range: 0.358-3.74 :49 Vitamin B12 431 pg/mL (Normal) Comments: [facility] [address] [place], [place], [address] Range: 211-911 Comments: ADDENDA: has apt today :58 AFP, Tumor Marker Comments: Is Patient ? [facility] (refer to report for specific site)refer to report for address and phone number AFP TUMOR 2253 4.9 ng/mL (Normal) Range: 0.0-8.3 Comments: [email or web address] ECLIA methodologyPerformed at: [facility] [id number] Director: Constantine Christianson PhD, Phone: [phone] CBC W/Diff, Automated Comments: [facility] [address] [place], [place], [id number] Absolute Lymph 1.46 {X10_3/ul} (Normal) Range: 0.83-4.51 [...] 4.2-5.4 WBC 7.3 K/mm3 (Normal) Range: 4.4-11.0 89-Vqz-56986:58 Comprehensive Metabolic Profil Comments: [facility] [address]qks[address] [place], [place], [address] GAP 7 (Normal) Range: 5-15 CO2 28.0 [...] per A.D.A. criteria. :58 Lipid Profile Comments: [facility] [address] [place], [address] ; non-emergent and has apth this [...] :58 Vitamin B12 278 pg/mL (Normal) Comments: [facility] Ix[address]izenm[address] [place], [address] Range: 211-911 :58 Vitamin D,25 Hydroxy Comments: [facility] [address]qfco55[address] [place], [address] Vitamin D 25-OH 38.4 ng/mL (Normal) Comments: Vitamin D 25(OH) Status Range Deficiency <20 ng/mL (50nmol/L) Insuffciency 20 - 30 ng/mL (50 - 75 nmol/L) Sufficiency 30 - 100 ng/mL (75 - 250 nmol/L) Toxicity >100 ng/mL (>250 nmol/L) 24-Ocy-476660:07 HgA1C , Office (00834) HgA1C , Office 6.5 % (Normal) Range: 4.6 - 7.1 :43 AFP, Tumor Marker Comments: Is Patient ? NTest performed at:[facility] [address] [place] [address] AFP TUMOR 2253 4.8 ng/mL (Normal) Range: 0.0-8.3 Comments: [email or web address] ECLIA methodologyPerformed at: CB - [facility] [address] [id number] Director: Arnold Jefferson PhD, Phone: [phone] :[phone] CBC W/Diff, Automated Comments: Test performed at:[facility] [address] [place] [address] Absolute Lymph 1.16 {X10_3/ul} (Normal) [...] :43 Comprehensive Metabolic Profil Comments: Test performed at:[facility] Cprkzfvjgo0325 [place] [address] GAP 11 (Normal) Range: 5-15 [...] 126 mg/dLsuggests DIABETES MELLITUS per A.D.A. criteria. 30-Dsu-03065:43 Lipid Profile Comments: Test performed at:[facility] Ckfcmqvevf0615 [facility]. [place], [place] [id number] VLDL 61 mg/dL (Abnormal) Range: 5-40 LDL [...] :43 Microalb:Creat Ratio,Random UR Comments: Test performed at:[facility] [address]vybk[address] [place] [id number] MALB:CREAT 15.9 {mg/g_CRE} (Normal) MICROALBUMIN,UR 19.2 mg/L (Normal) UR CREAT 120.3 mg/dL (Normal) :43 Thyroid Stim Hormone (TSH) Comments: Test performed at:[facility] Bbxuvbplrd5724 [facility] [place] [address] TSH 2.19 {uIU/mL} (Normal) Range: 0.358-3.74 :43 Vitamin B12 261 pg/mL (Normal) Comments: Test performed at:[facility] [address] [place] [address] Range: 211-911 Comments: ADDENDA: nl and pt has apt tomorrow :43 Vitamin D,25 Hydroxy Comments: Test performed at:[facility] Ckbcqfatdg5667 [facility] [place] [address] Vitamin D 25-OH 30.9 ng/mL (Normal) Comments: Vitamin D 25(OH) Status Range Deficiency <20 ng/mL (50nmol/L) Insuffciency 20 - 30 ng/mL (50 - 75 nmol/L) Sufficiency 30 - 100 ng/mL (75 - 250 nmol/L) Toxicity >100 ng/mL (>250 nmol/L) :38 HgA1C , Office (03083) HgA1C , Office 6.7 % (Normal) Range: 4.6 - 7.1 :56 AFP, Tumor Marker Comments: Is Patient ? NTest performed at:[facility] [address]qyp[address] [place] [id number] ; appt 02/15 AFP TUMOR 2253 4.8 ng/mL (Normal) Range: 0.0-8.3 Comments: Patricia ECLIA methodologyPerformed at: CB - [facility] Xxfyyh3182 [place], [place] [id number] Director: Arnold Jefferson PhD, Phone: [phone] :[phone] CBC W/Diff, Automated Comments: Test performed at:[facility] [address] [place] [address] Absolute Lymph 2.37 {X10_3/ul} (Normal) [...] 4.4-11.0 :56 Lipid Profile Comments: Test performed at:[facility] [address]uz[address] [place] [address] VLDL 26 mg/dL (Normal) Range: [...] :56 Partial Thromboplast Time Comments: Test performed at:[facility] N[address] [place] [address] PTT 30.1 s (Normal) Range: 24.1-36.2 :56 Prothrombin Time w/INR Comments: Test performed at:[facility] [address] [place] [address]66[address] INR 1.0 (Normal) PROTIME 12.8 s (Normal) Range: 11.7-14.9 :56 Thyroid Stim Hormone (TSH) Comments: Test performed at:[facility] [address] [place] [address] TSH 5.17 {uIU/mL} (Abnormal) Range: 0.358-3.74 :56 Vitamin B12 293 pg/mL (Normal) Comments: Test performed at:[facility] [address] [place] [address] Range: 211-911 :56 Vitamin D,25 Hydroxy Comments: Test performed at:[facility] [address] [place] [id number] Vitamin D 25-OH 32.0 ng/mL (Normal) Comments: Vitamin D 25(OH) Status Range Deficiency <20 ng/mL (50nmol/L) Insuffciency 20 - 30 ng/mL (50 - 75 nmol/L) Sufficiency 30 - 100 ng/mL (75 - 250 nmol/L) Toxicity >100 ng/mL (>250 nmol/L) 40-Fzu-426132:07 HgA1C , Office (13158) HgA1C , Office 6.3 % (Normal) Range: 4.6 - 7.1 :33 CBC W/Diff, Automated Comments: Test performed at:[facility] [address] [place], [place] [id number] ; non- emergent till apt Absolute Lymph [...] :33 Comprehensive Metabolic Profil Comments: Test performed at:[facility] [address]pr[address] [place] [address] GAP 4 (Abnormal) Range: 5-15 [...] criteria. :33 Lipid Profile Comments: Test performed at:[facility] [address]nd75[address] [place] [address] VLDL 29 mg/dL (Normal) Range: [...] B12 394 pg/mL (Normal) Comments: Test performed at:[facility] [address] [place] [address] Range: 211-911 :33 Vitamin D,25 Hydroxy Comments: Test performed at:[facility] [address]reciero[address] [place] [address] Vitamin D 25-OH 39.6 ng/mL (Normal) Comments: Vitamin D 25(OH) Status Range Deficiency <20 ng/mL (50nmol/L) Insuffciency 20 - 30 ng/mL (50 - 75 nmol/L) Sufficiency 30 - 100 ng/mL (75 - 250 nmol/L) Toxicity >100 ng/mL (>250 nmol/L) :10 HgA1C , Office (54372) HgA1C , Office 6.4 % (Normal) Range: [...] CHOL 167 mg/dL (Normal) Comments: <200 mg/dL Kzqxnwtke725-749 mg/dL Borderline>240 mg/dL High Risk TRIG 200 mg/dL (Abnormal) Range: 0-199 Comments: Serum Triglycerides Reference IntervalNormal <150 mg/dLBorderline high 150 - 199 mg/dLHigh 200 - 499 mg/ dLVery High > or = 500 mg/dL :42 TIBC 275 ug/dL (Normal) Range: 250-450 :42 TSH 2.12 {uIU/mL} (Normal) Range: 0.358-3.74 10-Guc-859115:10 FERRITIN (36019) Comments: PATIENT NOT FASTINGPERFORMED BY: [facility] [id number] Ferritin, Serum 133 ng/mL (Normal) Range: 15-150 74-Zqs-714022:10 IRON BINDING CAPACITY Comments: PATIENT NOT FASTINGPERFORMED BY: [employer] Health: [facility] [id number] Information: [id number] (TIBC) (44815) Iron Saturation 20 % (Normal) Range: 15-55 Iron, Serum 62 ug/dL (Normal) Range: 35-155 UIBC 241 ug/dL (Normal) Range: 150-375 Iron Bind.Cap.(TIBC) 303 ug/dL (Normal) Range: 250-450 52-Vsz-363434:10 VITAMIN B-12 (CYANOCOBALAMIN) Comments: PATIENT NOT FASTINGPERFORMED BY: [employer] [facility] [id number] (16885) Vitamin B12 421 pg/mL (Normal) Range: 211-946 96-Efl-607953:10 TSH (41823) Comments: PATIENT NOT FASTINGPERFORMED BY: [employer] [facility] [place] [id number] TSH 1.150 {uIU/mL} (Normal) Range: 0.450-4.500 02-Rqg-439230:37 HgA1C , Office (28223) HgA1C , Office 6.1 % (Normal) Range: 4.6 - 7.1 2-Ouv-727479:10 CBC with manual diff Comments: PATIENT WAS FASTINGPERFORMED BY: CORTEZ [facility] Qnrchr5084 [facility] [id number] Information: [id number] (90254) Immature Grans (Abs) 0.0 {x10E3/uL} (Normal) Range: [...] 3.77-5.28 WBC 8.2 {x10E3/uL} (Normal) Range: 3.4-10.8 8-Fya-805045:10 Metabolic Panel, Comprehensive Comments: PATIENT WAS FASTINGPERFORMED BY: LabCoAnn Klein Forensic CenterJzjhdd4679 [facility] [id number] (07758) ALT (SGPT) 11 [iU]/L (Normal) Range: 0-32 [...] Glucose, Serum 129 mg/dL (Abnormal) Range: 65-99 9-Aro-406385:10 Lipid Panel (35167) Comments: PATIENT WAS FASTINGPERFORMED BY: IOCOMAnn Klein Forensic CenterKnsyvp4874 [facility] [id number] LDL/HDL Ratio 1.4 {ratio_units} (Normal) Range: 0.0-3.2 [...] METABOLIC PANEL, Comments: PATIENT NOT FASTINGPERFORMED BY: [employer] Ormtjb9729 [facility] [id number] Information: [id number] COMPREHENSIVE (71250) ALT (SGPT) 15 [iU]/L (Normal) Range: 0-32 [...] 133 mg/dL (Abnormal) Range: 65-99 :14 TSH (06941) Comments: PATIENT NOT FASTINGPERFORMED BY: LabCoAnn [facility] Forensic CenterNoqinf5943 [facility] [id number] TSH 0.182 {uIU/mL} (Abnormal) Range: 0.450-4.500 :40 [...] CHOL 99 mg/dL (Normal) Comments: <200 mg/dL Xqgjmhwur453-236 mg/dL Borderline>240 mg/dL High Risk :40 MIACRE [...] CHOL 148 mg/dL (Normal) Comments: <200 mg/dL Tqygzvfsz451-935 mg/dL Borderline>240 mg/dL High Risk HDL 46 [...] - 250 nmol/L)Toxicity >100 ng/mL (>250 nmol/L) 74-Bjy-611620:27 HgA1C , Office (90008) HgA1C , Office 6.7 % (Normal) Range: 4.6 - 7.1 :17 METABOLIC PANEL, COMPREHENSIVE Comments: PATIENT WAS FASTINGPERFORMED BY: [employer] [facility] [id number] (58506) ALT (SGPT) 16 [iU]/L (Normal) Range: 0-32 [...] mg/dL (Abnormal) Range: 65-99 :17 LIPID PANEL (42690) Comments: PATIENT WAS FASTINGPERFORMED BY: [employer]ela[employer] Global CommunicationsNovant Health Medical Park Hospital [id number] LDL/HDL Ratio 2.0 {ratio_units} (Normal) Range: 0.0-3.2 [...] MANUAL DIFF Comments: PATIENT WAS FASTINGPERFORMED BY: LabCoAnn [facility] Forensic CenterQayvyp4574 [facility] [id number] Information: [id number] (19009) Immature Grans (Abs) 0.0 {x10E3/uL} (Normal) Range: [...] B-12 (CYANOCOBALAMIN) Comments: PATIENT WAS FASTINGPERFORMED BY: [employer] LabCertaliaAnn Klein Forensic CenterHrdezu4351 [facility] [place] [id number] (57312) Vitamin B12 696 pg/mL (Normal) Range: 211-946 :17 Vitamin D Hydroxy (45336) Comments: PATIENT WAS FASTINGPERFORMED BY: [facility] Mflsjr4066 [facility] [place] [id number] Vitamin D, 25-Hydroxy 29.3 ng/mL (Abnormal) Range: 30.0-100.0 Comments: Vitamin D deficiency has been defined by the [place] of[place]icine and an Endocrine Society practice guideline as alevel of serum 25-OH vitamin D less than 20 ng/mL (1,2).The Endocrine Society went on to further define vitamin Dinsufficiency as a level between 21 and 29 ng/mL (2).1. IOM ([place] of Medicine). 2010. Dietary reference intakes for calcium and D. [place]: The National Academies Press.2. Rachel MF, Yael NC, Dunia HERRERA, et al. Evaluation, treatment, and prevention of vitamin D deficiency: an Endocrine Society clinical practice guideline. JCEM. 2010; 96(7):1911-30. 01-Uwj-096906:29 HgA1C , Office (42699) HgA1C , Office 7.0 % (Normal) Range: 4.6 - 7.1 5-Iub-462596:14 B12 794 pg/mL (Normal) Range: 211-911 Comments: Effective 201227-Dec-20122-Shc-708946:14 VITD 37.5 ng/mL (Normal) Comments: Vitamin D 25(OH) Status RangeDeficiency <20 ng/mL (50nmol/L)Insufficiency 20 - 30 ng/mL (50 - 75 nmol/L)Sufficiency 30 - 100 ng/mL (75 - 250 nm ol/L)Toxicity >100 ng/mL (250 nmol/L)Effective 201201-Dec-20128-Gco-882967:13 CHEST PA AND LATERAL Radiology Report See [...] Tate D.O.December 01, 2012 at 12:40:54 PM [id number] Signed DS/DS If you are the referring physician and would like to consult with theradiologist who provided this i nterpretation, please contact Eulalio Tate D.O. at [phone]. If this radiologist is unavailable, you will bedirected to another radiologist to assist. If you are a patient with a question regarding t his report, pleasecontactyour referring physician directly. Professional Interpretation Provided By: [employer], Phone , These documents contain legally protected [...] 12/01/12 1244 Sign by: Mack Peterson DO 19-Tdq-410457:20 Upper Respiratory Culture Comments: PATIENT NOT FASTINGPERFORMED BY: [facility]Henry [facility]6370 [facility] [id number] Information: SRC: THROAT Result 1 RRF (Normal) Comments: Routine respiratory alton Upper Respiratory Culture Final report (Normal) 96-Mkn-367156:06 Rapid Strep Test, Office (33402) Rapid Strep Test, Office Negative (Normal) 61-Vfh-570195:32 BILAT SCRN DIGITAL & CAD Radiology Report [...] Wayne M.D.November 18, 2012 at 12:51:57 PM [id number] Signed GP/GP If you are the referring physician and would like to consult with theradiologist who provid ed this interpretation, please contact Todd Claudio. at [phone]. If this radiologist is unavailable, youwill be directed to another radiologist to assist. If you are a patient with a ques tion regarding this report, pleasecontactyour referring physician directly. Professional Interpretation Provided By: [employer], Phone , These documents contain legally pr [...] 11/18/12 1254 Sign by: Teo Wayne MD 2-Hdb-939204:24 URINE RANI CULTURE-IDENTIFICATN Comments: PATIENT NOT FASTINGPERFORMED BY: [employer]Co Ehreud1727 [facility] [id number] Information: [id number] (65869) Result 1 MUG (Normal) Comments: Mixed urogenital flora10,000-25,000 colony forming units per mL Urine Final report (Normal) Culture,Comprehensive 84-Gpk-530881:50 METABOLIC PANEL, Comments: PATIENT NOT FASTINGPERFORMED BY: [employer] Mypnyr7774 [facility] [id number] Information: ADD [id number] AND DRAW FEE 99 4407 COMPREHENSIVE (10716) ALT (SGPT) 14 [iU]/L (Normal) Range: 0-32 [...] Glucose, Serum 109 mg/dL (Abnormal) Range: 65-99 0-Ngd-026082:42 HgA1C , Office (99120) HgA1C , Office 6.3 % (Normal) Range: 4.6 - 7.1 :04 Microscopic Examination Comments: PATIENT NOT FASTINGPERFORMED BY: LabCoAnn Klein Forensic CenterDfgybo6466 [facility] [id number] Bacteria Few (Normal) Mucus Threads Present (Normal) Cast Type Hyaline casts (Normal) Casts Present {/lpf} (Abnormal) Epithelial Cells (non renal) 0-10 {/hpf} (Normal) Range: 0 - 10 RBC 0-3 {/hpf} (Normal) Range: 0 - 3 WBC 6-10 {/hpf} (Abnormal) Range: 0 - 5 :04 VITAMIN B-12 (CYANOCOBALAMIN) Comments: PATIENT NOT FASTINGPERFORMED BY: [facility] Arxzep1980 [facility] [id number] (22624) Vitamin B12 1228 pg/mL (Abnormal) Range: 211-946 :04 Vitamin D Hydroxy (03005) Comments: PATIENT NOT FASTINGPERFORMED BY: [facility]6370 [facility] [id number] Vitamin D, 25-Hydroxy 21.9 ng/mL (Abnormal) Range: 30.0-100.0 Comments: Vitamin D deficiency has been defined by the [place] of[place]icine and an Endocrine Society practice guideline as alevel of serum 25-OH vitamin D less than 20 ng/mL (1,2).The Endocrine Society went on to further define vitamin Dinsufficiency as a level between 21 and 29 ng/mL (2).1. IOM ([place] of Medicine). 2010. Dietary reference intakes for calcium and D. [place]: The National Academies Press.2. Rachel MF, Yael NC, Dunia HERRERA, et al. Evaluation, treatment, and prevention of vitamin D deficiency: an Endocrine Society clinical practice guideline. JCEM. 2010; 96(7):1911-30. :04 URINALYSIS, W/ MICRO (16671) Comments: PATIENT NOT FASTINGPERFORMED BY: [facility]6370 [facility] [id number] Microscopic Examination See below: (Normal) Nitrite, Urine Negative (Normal) Bilirubin Negative (Normal) Urobilinogen,Semi-Qn 0.2 mg/dL (Normal) Range: 0.0-1.9 Occult Blood Negative (Normal) Ketones Negative (Normal) Glucose Negative (Normal) Protein Negative (Normal) WBC Esterase 1+ (Abnormal) Appearance Clear (Normal) Urine-Color Yellow (Normal) pH 5.5 (Normal) Range: 5.0-7.5 Specific Allgood 1.024 (Normal) Range: 1.005-1.030 :04 CBC WITH MANUAL DIFF Comments: PATIENT NOT FASTINGPERFORMED BY: [facility]6370 [facility] [id number] Information: [id number] (30367) Immature Grans (Abs) 0.0 {x10E3/uL} (Normal) Range: [...] PANEL, COMPREHENSIVE Comments: PATIENT NOT FASTINGPERFORMED BY: [facility]6370 [facility] [id number] (88163) ALT (SGPT) 13 [iU]/L (Normal) Range: 0-32 [...] Glucose, Serum 125 mg/dL (Abnormal) Range: 65-99 01-Xcd-35969:04 LIPID PANEL (52837) Comments: PATIENT NOT FASTINGPERFORMED BY: [facility] Woxlfe5948 [facility] [id number] LDL Cholesterol Calc 103 mg/dL (Abnormal) Range: [...] pg/mL (Normal) Range: 211-946 Comments: Performed at: [facility] [id number] Director: Arnold Jefferson PhD, Phone: [phone] :[phone] CMP GAP 9 (Normal) Range: 5-15 [...] 250 nmol/L) Toxicity >100 ng/mL (250 nmol/L)Effective 201215-Aug-201208-Yhy-574978:20 Metabolic Panel, Basic Comments: PATIENT NOT FASTINGPERFORMED BY: VelaTel Global CommunicationsNov[facility] Health Medical [facility] Hospital [id number] Information: [id number] (65051) Calcium, Serum 10.2 mg/dL (Normal) Range: 8.6-10.2 [...] Glucose, Serum 99 mg/dL (Normal) Range: 65-99 8-Hmt-496387:24 Microscopic Examination Comments: PATIENT NOT FASTINGPERFORMED BY: [employer] [facility] [id number] Bacteria Few (Normal) Mucus Threads Present (Normal) Epithelial Cells (non renal) 0-10 {/hpf} (Normal) Range: 0 - 10 RBC 0-3 {/hpf} (Normal) Range: 0 - 3 WBC 6-10 {/hpf} (Abnormal) Range: 0 - 5 :24 Vitamin D Hydroxy (91969) Comments: PATIENT NOT FASTINGPERFORMED BY: [employer] Lidcez3728 [facility] [id number] Vitamin D, 25-Hydroxy 21.7 ng/mL (Abnormal) Range: 30.0-100.0 Comments: Vitamin D deficiency has been defined by the [place] of[place]cine and an Endocrine Society practice guideline as alevel of serum 25-OH vitamin D less than 20 ng/mL (1,2).The Endocrine Society went on to further define vitamin Dinsufficiency as a level between 21 and 29 ng/mL (2).1. IOM ([place] of [place]). 2010. Dietary reference intakes for calcium and D. [place]: The National Academies Press.2. Rachel MF, Yael MARLEY, Dunia HERRERA, et al. Evaluation, treatment, and prevention of vitamin D deficiency: an Endocrine Society clinical practice guideline. JCEM. 2010; 96(7):1911-30. 2-Zyj-783486:24 VITAMIN B-12 (CYANOCOBALAMIN) Comments: PATIENT NOT FASTINGPERFORMED BY: [employer] Zqheby5720 [facility] [id number] (64903) Vitamin B12 431 pg/mL (Normal) Range: 211-946 :24 URINALYSIS, W/ MICRO (07050) Comments: PATIENT NOT FASTINGPERFORMED BY: [facility]ICESPer[facility] Gdpzol4773 [facility] [id number] Microscopic Examination MICRON (Normal) Comments: Microscopic follows if indicated. Microscopic Examination See below: (Normal) Nitrite, Urine Negative (Normal) Urobilinogen,Semi-Qn 0.2 mg/dL (Normal) Range: 0.0-1.9 Bilirubin Negative (Normal) Ketones Negative (Normal) Occult Blood Negative (Normal) Glucose Negative (Normal) Protein Negative (Normal) WBC Esterase Negative (Normal) Appearance Clear (Normal) pH 6.5 (Normal) Range: 5.0-7.5 Urine-Color Yellow (Normal) Specific Allgood 1.022 (Normal) Range: 1.005-1.030 :24 CBC WITH MANUAL DIFF Comments: PATIENT NOT FASTINGPERFORMED BY: LabCoAnn Klein Forensic CenterDviupk8619 [facility] [id number] Information: [id number] (25880) Immature Grans (Abs) 0.0 {x10E3/uL} (Normal) Range: [...] PANEL, COMPREHENSIVE Comments: PATIENT NOT FASTINGPERFORMED BY: LabHenry [facility]6370 [facility] [id number] (69602) ALT (SGPT) 16 [iU]/L (Normal) Range: 0-32 [...] Glucose, Serum 107 mg/dL (Abnormal) Range: 65-99 9-Mxf-136680:24 TSH (54776) Comments: PATIENT NOT FASTINGPERFORMED BY: IOCOMElizabeth [place] 9028670 [facility] [id number] TSH 2.000 {uIU/mL} Range: 0.450-4.500 (Normal) CCP Antibodies IgG/IgA 1 {units} (Normal) Comments: PATIENT NOT FASTINGPERFORMED BY: LabCertaliaAnn Klein Forensic CenterZtkohw8007 [facility] [id number] BY: [address] [id number] :39 Range: 0-19 Comments: Negative <20 Weak positive 20 - 39 Moderate positive 40 - 59 Strong positive >59 0-Tfu-553526:39 Systemic Lupus Profile Comments: PATIENT NOT FASTINGPERFORMED BY: CB [facility] Uoeezb3975 Sridhar DavilaQuorum Health [id number] BY: BN [facility] Dbuqyaqpit2210 [facility] [id number] Information: [id number] (28164) Anti-DNA (DS) Ab Qn <1 {IU/mL} (Normal) Range: 0-9 Comments: Negative <5 Equivocal 5 - 9 Positive >9 Sjogren's Anti-SS-B 0.5 {AI} (Normal) Range: 0.0-0.9 Sjogren's Anti-SS-A 0.3 {AI} (Normal) Range: 0.0-0.9 Antichromatin Antibodies <0.2 {AI} (Normal) Range: 0.0-0.9 RA Latex Turbid. 8.5 {IU/mL} (Normal) Range: 0.0-13.9 [place] Antibodies <0.2 {AI} (Normal) Range: 0.0-0.9 ADMINISTRATIVE ASSOCIATE Antibodies <0.2 {AI} (Normal) Range: 0.0-0.9 09-Vcp-450935:27 HgA1C , Office (36839) HgA1C , Office 6.2 % (Normal) Range: 4.6 - 7.1 41-Wtj-887134:27 Blood Glucose , Office (75005) Blood Glucose , Office 108 (Normal) :45 [...] D deficiency has been defined by the [place] of[place]icine and an Endocrine Society practice guideline as alevel of serum 25-OH vitamin D less than 20 ng/mL (1,2).The Endocrine Society went on to further define vitamin Dinsufficiency as a level between 21 and 29 ng/mL (2).1. IOM ([place] of [place]). 2010. Dietary reference intakes for calcium and D. [facility]: The National Academies Press.2. Rachel MF, Yael NC, Dunia HERRERA, et al. Evaluation, treatment, and prevention of vitamin D deficiency: an Endocrine Society clinical practice guideline. JCEM. 2010; 96(3): 1911-30.Performed at: - [facility] [id number] Director: Arnold Jefferson PhD, Phone: [phone] 53-Bqa-867671:59 Blood Glucose , Office (26162) Blood Glucose , Office 131 (Normal) :58 HgA1C , Office (43737) HgA1C , Office 6.8 % (Normal) Range: [...] mg/dL suggests DIABETES MELLITUS per A.D.A. criteria. 57-Hiu-978500:12 LIPID LDL 104 mg/dL (Normal) Range: 0-130 [...] 200-240 mg/dL Borderline >240 mg/dL High Risk 46-Wru-429350:12 TSH 2.08 {uIU/mL} (Normal) Range: 0.358-3.74 03-Ltl-988860:12 VITD 34.7 ng/mL (Normal) Range: 30.0-100.0 Comments: Vitamin D deficiency has been defined by the [place] of[place]icine and an Endocrine Society practice guideline as alevel of serum 25-OH vitamin D less than 20 ng/mL (1,2).The Endocrine Society went on to further define vitamin Dinsufficiency as a level between 21 and 29 ng/mL (2).1. IOM ([place] of [place]). 2010. Dietary reference intakes for calcium and D. [place]: The National Academies Press.2. Rachel MF, Yael MARLEY, Dunia HERRERA, et al. Evaluation, treatment, and prevention of vitamin D deficiency: an Endocrine Society clinical practice guideline. JCEM. 2010; 96(7): 1911-30.Performed at: - [facility] [id number] Director: Tona Emmanuel MD, Phone: [phone] HgA1C , Office (02076) HgA1C , Office 5.8 % (Normal) Range: 4.6 - 7.1 :15 Blood Glucose , Office (54746) Blood Glucose , Office 113 (Normal) :30 [...] D deficiency has been defined by the [place] of[place]cine and an Endocrine Society practice guideline as alevel of serum 25-OH vitamin D less than 20 ng/mL (1,2).The Endocrine Society went on to further define vitamin Dinsufficiency as a level between 21 and 29 ng/mL (2).1. IOM ([place] of [employer]). 2010. Dietary reference intakes for calcium and D. [place]: The National Academies Press.2. Rachel MF, Yael NC, Dunia HERRERA, et al. Evaluation, treatment, and prevention of vitamin D deficiency: an Endocrine Society clinical practice guideline. JCEM. 2010; 96(7): 1911-30.Performed at: [address] [id number] Director: Tona Emmanuel MD, Phone: [phone] 52-Est-330258:02 CTA NECK W/WO CONTRAST Radiology Report See [...] ologist regarding this report, please call our 29P5esutxyb line @ Dictated on 10/08/11 [address]ER,Davidranscribed on 10/09/11 0856 by ITS IMPORTSign by Juana Wayne MD on 10/09/11 0857 Sign by: Teo Wayne MD 55-Xlh-452332:00 BILAT SCRN DIGITAL & CAD Radiology Report [...] radiologist regarding this report, please call our 49Q9szqeent line @ Dictated on 09/18/11 1040 by Ori clifton MD,GeerieleTranscribed on 09/20/11900 by ITS IMPORTSign by Teo Wayne MD on 09/20/11901 Sign by: Teo Wayne MD 85-Gld-22733:59 DEXA BONE DENSITY STUDY (HP) Radiology Report [...] regarding this re port, please call our 95Y3xdqspnx line @ Dictated on 09/18/11 [address]ER,Davidranscribed on 09/19/11 1416 by ITS IMPORTSign by Teo Wayne MD on 09/19/11 1417 Sign by: Teo Wayne MD 27-Vct-368549:17 HgA1C , Office (58710) HgA1C , Office 5.9 % (Normal) Range: 4.6 - 7.1 74-Hyn-207879:17 Blood Glucose , Office (72523) Blood Glucose , Office 77 (Normal) 04-Sep-20119:44 [...] >240 mg/dL High Risk :44 VIT D,25 29067 22.3 ng/mL (Abnormal) Range: 30.0-100.0 Comments: Vitamin D deficiency has been defined by the [place] of[place] and an Endocrine Society practice guideline as alevel of serum 25-OH vitamin D less than 20 ng/mL (1,2).The Endocrine Society went on to further define vitamin Dinsufficiency as a level between 21 and 29 ng/mL (2).1. IOM ([place] of [employer]). 2011. Dietary reference intakes for calcium and D. [place]: The National Academies Press.2. Rachel MF, Yael NC, Dunia HERRERA, et al. Evaluation, treatment, and prevention of vitamin D deficiency: an Endocrine Society clinical practice guideline. JCEM. 2010; 96(7): 1911-30.Performed at: - Lab[address] [id number] Director: Tona Emmanuel MD, Phone: [phone] 9-Nml-104666:34 HgA1C , Office (90508) HgA1C , Office 6.6 % (Normal) Range: 4.6 - 7.1 :34 Blood Glucose , Office (82469) Blood Glucose , Office 116 (Normal) :50 [...] Range: 4.4-11.0 :50 COMP METABOLIC Comments: appt 02450 GAP 10 (Normal) Range: 5-15 CO2 26.0 [...] {uIU/mL} (Normal) Range: 0.358-3.74 :50 VIT D,25 30664 41.3 ng/mL (Normal) Range: 32.0-100.0 Comments: Effective June 18, 2011 Vitamin D, 25-Hydroxy reference intervals will be changing to 30-100. .Recent studies consider the lower li lalo of 32.0 ng/mL to be athreshold for optimal health.Pepito ANNE. J Nutr. 2004;135(2):317-22.Performed at: [facility] [address] [id number] Director: Tona Emmanuel MD, Phone: [phone] :[phone] VITAMIN B12 806 pg/mL (Normal) Range: [...] Panel (14) Comments: PATIENT WAS FASTINGPERFORMED BY: [employer] [id number] ALT (SGPT) 40 [iU]/L (Normal) Range: 0-40 [...] Glucose, Serum 136 mg/dL (Abnormal) Range: 65-99 2-Zrw-547084:09 Lipid Panel With LDL/HDL Comments: PATIENT WAS FASTINGPERFORMED BY: LabCoAnn Klein Forensic CenterZgvpdp3628 [facility] [id number] Ratio LDL Cholesterol Calc 74 mg/dL (Normal) [...] 0.192 {uIU/mL} Comments: PATIENT WAS FASTINGPERFORMED BY: [facility]6370 [facility] [id number] 09 (Abnormal) Range: 0.450-4.500 : Vitamin B12 417 pg/mL (Normal) Comments: PATIENT WAS FASTINGPERFORMED BY: LabCoAnn Klein Forensic CenterSrprzg6534 [facility] [id number] Range: 211-946 86-Xmu-411704:22 UNILAT LT DIAG DIGITAL & CAD Radiology [...] 4.2-5.4 WBC 7.2 K/mm3 (Normal) Range: 4.4-11.0 94-Ydz-45348:58 COMP METABOLIC Comments: appt 10/24/10 GAP 12 [...] {uIU/mL} (Abnormal) Range: 0.358-3.74 :58 VIT D,25 47661 22.0 ng/mL (Abnormal) Comments: appt 10/24/10 Range: 32.0-100.0 Comments: Recent studies consider the lower limit of 32.0 ng/mL to tammy threshold for optimal health.Pepito ANNE. J Nutr. 2004;135(2):317-22.Performed at: [facility] Director: Tona Emmanuel MD, Phone: [phone] :58 VITAMIN B12 285 pg/mL (Normal) Range: [...] Prep VialPATIENT NOT FASTINGPERFORMED BY: [facility] [address] [facility] TONJA [id number] Information: [id number] ([id number]) Note: PAPSMR (Normal) Comments: The Pap smear [...] for malignant neoplasm of the cervixMattsteve Montes Restaurant Hospitality Manager (ASCP) 82-Rkh-617238:26 BREAST UNILATERAL Radiology Report See Note (Normal) [...] on 08/28/10 1453 Sign by: ANTHONY PALOMARES 29-Snc-910679:58 UNILAT LT DIAG DIGITAL & CAD Radiology [...] Category 3: Probably Benign Finding - Initial Zxhvb-WfporqpyGsxrpa-ay Suggested. A letter regarding these results will be sent tothepatient by the facility within 30 days. Approximately 10% of breast cancers are not detected by mammography. Anormal mammogram should not delay biopsy of a clinically suspiciousabnormality. Dictated on 08/24/10 1206 by ANTHONY PALOMARESTranscribed on 0 08/24/10 1351 by ITS IMPORTSign by ANTHONY PALOMARES on 08/24/10 1352 Sign by: ANTHONY PALOMARES 31-Nnl-52712:43 BILAT SCRN DIGITAL & CAD Radiology Report [...] 08/18/10 1452 Sign by: ANTHONY PALOMARES MD 1-Tki-935333:14 HgA1C , Office (65330) HgA1C , Office 6.5 % (Normal) Range: 4.6 - 7.1 :14 Blood Glucose , Office (44589) Blood Glucose , Office 176 (Normal) :30 [...] CREAT 161.2 mg/dL (Normal) : VIT D,25 47615 27.7 ng/mL Range: 32.0-100.0 30 (Abnormal) Comments: Recent studies consider the lower limit of 32.0 ng/mL to tammy threshold for optimal health.Pepito ANNE. J Nutr. 2004;135(2):317- 22.Performed at: [address] [id number] Director: Tona Emmanuel MD, Phone: [phone] : VITAMIN B12 449 pg/mL (Normal) Range: [...] {units} (Normal) Comments: PATIENT NOT FASTINGPERFORMED BY: [address] [id number] BY: [address] [id number] 0:44 Range: 0-19 Comments: Negative <20 Weak positive 20 - 39 Moderate positive 40 - 59 Strong positive >59 Comment: SPRCS (Normal) Comments: PATIENT NOT FASTINGPERFORMED BY: [address] [id number] BY: [address] [id number] 0:44 Comments: Effective April 25, 2009 order code 116723 CCP IgGAntibodies has been replaced due to an updated reagentversion 3.1. For this reason [facility] has provided youwith a new order code 578967 CCP Antibodies IgG/IgA. :44 Vitamin D Hydroxy Comments: PATIENT NOT FASTINGPERFORMED BY: [address] [id number] BY: [address] [id number] (32056) Vitamin D, 25-Hydroxy 30.9 ng/mL (Abnormal) Range: 32.0-100.0 Comments: Recent studies consider the lower limit of 32.0 ng/mL to be athreshold for optimal health.Pepito ANNE. J Nutr. 2004;135(2):317-22. 28-Aqr-349433:44 SED RATE ERYTHROCYTE Comments: PATIENT NOT FASTINGPERFORMED BY: [facility] Rauuvj9582 Wall[address] Roadblin [place] [id number] BY: [address] [id number] (94499) Sedimentation Rate-Westergren 4 mm/h (Normal) Range: 0-30 87-Lcx-444156:44 C-REACTIVE PROTEIN Comments: PATIENT NOT FASTINGPERFORMED BY: [facility] Hscvgo2360 Waller RoadDublin [place] [id number] BY: [employer] [id number] (99092) C-Reactive Protein, Quant 2.5 mg/L (Normal) Range: 0.0-4.9 17-Fus-871831:44 TSH (11303) Comments: PATIENT NOT FASTINGPERFORMED BY: [facility] Xemgwa4596 Waller RoadDublin [place] [id number] BY: [employer] [id number] TSH 2.050 {uIU/mL} (Normal) Range: 0.450-4.500 20-Apy-477558:44 RHEUMATOID FACTOR-QUANT Comments: PATIENT NOT FASTINGPERFORMED BY: [facility] Lkgpif3395 Waller RoadDublin [place] [id number] BY: [employer] [id number] (47674) RA Latex Turbid. 8.4 {IU/mL} (Normal) Range: 0.0-13.9 38-Rjs-596857:44 MELI (ANTINUCLEAR ANTIBODY) Comments: PATIENT NOT FASTINGPERFORMED BY: [facility] Ffjham5809 Waller RoadDublin [place] [id number] BY: LabCoMark [place] 778607 [facility] [id number] (24194) MELI Direct Negative (Normal) 23-Lmu-538828:44 CBC WITH MANUAL DIFF Comments: PATIENT NOT FASTINGPERFORMED BY: CB [facility] Xqwxjm9245 [facility] [id number] BY: LabCo[address] [id number] Inf ormation: ADD S00006 AND DRAW FEE [id number] (58907) Immature Grans (Abs) 0.0 {x10E3/uL} (Normal) Range: [...] 3.80-5.10 WBC 6.8 {x10E3/uL} (Normal) Range: 4.0-10.5 92-Djs-750722:44 METABOLIC PANEL, Comments: PATIENT NOT FASTINGPERFORMED BY: CB [facility] Fuyerd[address] [place] [id number] BY: BN [facility] Holylnsjzu3291 [facility] [id number] COMPREHENSIVE (25734) ALT (SGPT) 21 [iU]/L (Normal) Range: 0-40 [...] (Abnormal) Range: 65-99 :33 HgA1C , Office (97463) HgA1C , Office 6.8 % (Normal) Range: 4.6 - 7.1 :33 Blood Glucose , Office (80202) Blood Glucose , Office 135 (Normal) :22 [...] CHOL 157 mg/dL (Normal) Comments: <200 mg/dL Hwxazjzye354-538 mg/dL Borderline>240 mg/dL High Risk :22 LIVER ALB 3.5 g/dL (Normal) Range: 3.4-5.0 ALK P 97 U/L (Normal) Range: 50-136 ALT 21 U/L (Normal) Range: 12-78 AST 16 U/L (Normal) Range: 15-37 D BILI 0.12 mg/dL (Normal) Range: 0.00-0.30 T BILI 0.40 mg/dL (Normal) Range: 0.00-1.00 T PROT 6.5 g/dL (Normal) Range: 6.4-8.2 :22 TSH 1.54 {uIU/mL} Range: 0.358-3.74 (Normal) :22 VIT D,25 90594 36.8 ng/mL (Normal) Range: 32.0-100.0 Comments: Recent studies consider the lower limit of 32.0 ng/mL to tammy threshold for optimal health.Pepito ANNE. J Nutr. 2004;135(2):317-22.Performed at: - LabCoErica Ville [address] Director: Tona Emmanuel MD, Phone: [phone] :22 VITAMIN B12 264 pg/mL (Normal) Range: 254-1320 Comments: There is a low frequency possibility that high titers ofintrinsic blocking antibodies may not be completelyinactivated during the reaction pretreatment stepof this testing method. If test results are in conflictwith the clinical diagnosis, patient should be testedfor the presence of intrinsic factor blocking antibodies. : Amylase, Serum 92 U/L (Normal) Comments: PERFORMED BY: [employer]6370 [facility] [id number] 34 Range: 31-124 :34 CBC With Differential/Platelet Comments: PERFORMED BY: [employer]6370 [facility] [id number] Baso (Absolute) 0.0 {x10E3/uL} (Normal) Range: 0.0-0.2 [...] 3.80-5.10 WBC 7.5 {x10E3/uL} (Normal) Range: 4.0-10.5 73-Fse-482682:34 Comp. Metabolic Panel (14) Comments: PERFORMED BY: [facility] Piupgr4985 [facility] [id number] ALT (SGPT) 18 [iU]/L (Normal) Range: 0-40 [...] Serum 57 U/L (Normal) Comments: PERFORMED BY: IOCOMAnn Klein Forensic CenterYlhcie1487 [facility] [id number] 13:34 Range: 0-59 03-Feb-20109:00 GALLBLADDER Radiology Report See Note (Normal) Comments: Exam Number: [id number] CLINICAL:Epigastric pain and bloating. ABDOMINAL ULTRASOUND TECHNIQUE:Transabdominal [...] hydronephrosis,etiology indeterminate. Reported By: KATHRYN MUNOZ M.D. 2-Ioi-824687:19 CBC WITH MANUAL DIFF Comments: PATIENT NOT FASTINGPERFORMED BY: [facility]6370 [facility] [id number] Information: [id number] (57950) Baso (Absolute) 0.1 {x10E3/uL} (Normal) Range: 0.0-0.2 [...] 3.80-5.10 WBC 9.9 {x10E3/uL} (Normal) Range: 4.0-10.5 3-Wvk-017635:19 METABOLIC PANEL, COMPREHENSIVE Comments: PATIENT NOT FASTINGPERFORMED BY: LabCoAnn Klein Forensic CenterOlwmvb0800 [facility] [id number] (34568) ALT (SGPT) 19 [iU]/L (Normal) Range: 0-40 [...] Report See Note (Normal) Comments: Exam Number: [id number] CLINICAL:This is a 69-year-old female patient with [...] as discussed above. Reported By: TEO WAYNE 6-Zpd-427082:12 HgA1C , Office (30741) HgA1C , Office 7.1 % (Normal) Range: 4.6 - 7.1 :12 Blood Glucose , Office (48272) Blood Glucose , Office 129 (Normal) :45 [...] CHOL 155 mg/dL (Normal) Comments: <200 mg/dL Rawmbdgfi094-119 mg/dL Borderline>240 mg/dL High Risk :45 VIT D,25 80519 42.5 ng/mL (Normal) Range: 32.0-100.0 Comments: Recent studies consider the lower limit of 32.0 ng/mL to tammy threshold for optimal health.Beyer BW. J Nutr. 2004;135(2):317-22.Performed at: CB - [facility] [address] [id number] Director: Tona Emmanuel MD :53 LIPID HDL [...] CHOL 128 mg/dL (Normal) Comments: <200 mg/dL Dqiiqpshz391-625 mg/dL Borderline>240 mg/dL High Risk :53 MICROALB:CRE UR MALB:CREAT 19.1 {mg/g_CRE} (Normal) MICROALBUMIN,UR 29.1 mg/L (Normal) UR CREAT 152.0 mg/dL (Normal) :53 TSH 0.93 {uIU/mL} (Normal) Range: 0.358-3.74 :53 VIT D,25 75335 22.7 ng/mL (Abnormal) Range: 32.0-100.0 Comments: Recent studies consider the lower limit of 32.0 ng/mL to tammy threshold for optimal health.Beyer BW. J Nutr. 2004;135(2):317-22.Performed At: [facility] [address] [id number] :53 VITAMIN B12 337 pg/mL (Normal) Range: 254-1320 :09 HgA1C , Office (57475) HgA1C , Office 7.1 % (Normal) Range: 4.6 - 7.1 :09 Blood Glucose , Office (28879) Blood Glucose , Office 108 (Normal) 1-Dgx-828124:33 KNEE,4 OR MORE VIEWS (MT) Radiology Report See Note (Normal) Comments: Exam Number: [id number] CLINICAL:Pain X-RAY EXAMINATION RIGHT KNEE TECHNIQUE:Three view(s) [...] Report See Note (Normal) Comments: Exam Number: [id number] CLINICAL:Pain X-RAY EXAMINATION: RIGHT TIBIA AND FIBULA [...] (MT) Radiology See Note Comments: Exam Number: [id number] CLINICAL:Pain X-RAY EXAMINATION: RIGHT FEMUR TECHNIQUE:Two views [...] Visualized femur. Reported By: RAYMOND ARRIAGA M.D. 2-Mqs-706870:43 [facility] DIGITAL & CAD Radiology Report See Note (Normal) Comments: Exam Number: [id number] MAMMOGRAM, UNILATERAL LEFT DIAGNOSTIC DIGITAL AND CAD HISTORYAbnormal mammogram, left breast. TECHNIQUEFull field digital images were obtained in left true lateral, rolledcranio caudal, and spot mediolateral oblique and craniocaudalprojections. CAD images were reviewed. The current study is compared to the examinations of March 12, 2006,and June 21, 2009. FINDINGSThere is a axghxclp-al-rxxdse extent of fibroglandular parenchymapresent. There is no [...] wereal so examined with computer-aided detection software ([employer], [employer] Reported By: ANTHONY PALOMARES M.D. 08-Zyg-111520:04 [facility] DIGITAL & CAD Radiology Report See Note (Normal) Comments: Exam Number: [id number] MAMMOGRAM, BILATERAL SCREENING DIGITAL AND CAD HISTORYRoutine [...] werealso examined with computer- aided detection software ([employer], [employer] Reported By: ANTHONY PALOMARES M.D. 79-Qiw-685249:03 DEXA BONE DENSITY STUDY (HP) Radiology Report See Note (Normal) Comments: Exam Number: [id number] BONE DENSITOMETRY HISTORYOsteopenia. TECHNIQUE Bone densitometry of the lumbar spine and both hips is now beingperformed. The best criteria for evaluation of osteoporosis is theT-value, which represents the comparison of the patient's bone mass flako expected peak bone mass. For most patients, the mean T-value of F2kffsaai L4 is used to evaluate the lumbar spine. To evalua te the hip,the lower T-value of the femoral neck or total hip is used. FINDINGSIn this patient, the mean T-value of L1 through L4 is 0.3 which isnormal. Bone mineral density is measured at 18.3% greate r than vs1508.Digital lateral view for evaluation of vertebral deformity [...] within normallimits. Reported By: ANTHONY PALOMARES M.D. 28-Bmy-607664:09 BRAIN/HEAD W/WO CONTRAST Radiology Report See Note (Normal) Comments: Exam Number: [id number] CLINICAL:69 year old female with altered mental [...] are present. Reported By: ANTHONY GRIER M.D. 38-Acv-48823:02 CBCD,SMEAR DIFF CELLS COUNTED 100 (Normal) LYMPH [...] mg/dL VLDL 32 mg/dL (Normal) Range: 5-40 57-Qgi-90624:02 MICROALB:CRE UR MALB:CREAT 38.4 {mg/g_CRE} (Abnormal) MICROALBUMIN,UR 47.5 mg/L (Normal) UR CREAT 123.4 mg/dL (Normal) 07-Jun-2009 VIT D,25 10046 19.7 ng/mL Range: 32.0-100.0 9:02 (Abnormal) Comments: Recent studies consider the lower limit of 32.0 ng/mL to tammy threshold for optimal health.Pepito ANNE. J Nutr. 2004;135(2):317- 22.Performed At: [facility]6370 [place], [place] [id number] 07-Jun-2009 VITAMIN B12 328 pg/mL (Normal) Range: 254-1320 9:02 11-Feb-2009 Homocyst(e)ine, Plasma 9.8 umol/L (Normal) Comments: PERFORMED BY: [facility] [place] [address] [id number] 14:28 Range: 0.0-15.0 11-Feb-2009 Methylmalonic Acid, 336 nmol/L (Normal) Comments: PERFORMED BY: [facility] [address] [id number] 14:28 Serum Range: 73-376 Comments: The reference range for methylmalonic acid has been set at +3sd abovethe mean for healthy blood bank donors. In the clinical assessment ofpatients with megaloblastic anemias a cutoff of +3sd provides gr eaterspecificity in the diagnosis of the vitamin deficiency states,despite the sacrifice of some sensitivity. 11-Feb-2009 TSH 2.700 {uIU/mL} Comments: PERFORMED BY: [facility] [address] [id number] 14:28 (Normal) Range: 0.450-4.500 11-Feb-2009 Vitamin B12 231 pg/mL (Normal) Comments: PERFORMED BY: [facility] [address] [id number] 14:28 Range: 211-911 7-Igc-511924:09 HAND,MIN 3 VIEWS (MT) Radiology Report See Note (Normal) Comments: Exam Number: [id number] RIGHT WRIST CLINICAL DATAFell and injured the [...] osteoarthritis right hand. Reported By: FERNANDO TUCKER 9-Ryb-453025:09 WRIST,MIN 3 VIEWS (MT) Radiology Report See Note (Normal) Comments: Exam Number: [id number] RIGHT WRIST CLINICAL DATAFell and injured the [...] PANEL, COMPREHENSIVE Comments: PATIENT WAS FASTINGPERFORMED BY: [employer] [facility] CenterInnominate Security TechnologiesNovant Health Medical Park Hospital [id number] (05306) A/G Ratio 1.9 (Normal) Range: 1.1-2.5 Albumin, [...] 141 mmol/L (Normal) Range: 135-145 :42 TSH (45608) Comments: PATIENT WAS FASTINGPERFORMED BY: [employer] Technologiesin [place] [id number] TSH 4.980 {uIU/mL} (Abnormal) Range: 0.450-4.500 :42 MICROALBUMIN: CREATININE RATIO Comments: PATIENT WAS FASTINGPERFORMED BY: [address] [id number] (50456) AND (41688) Creatinine, Urine 130.9 mg/dL (Normal) Range: 15.0-278.0 Microalb/Creat Ratio 66.4 {ug/mg_creat} (Abnormal) Range: 0.0-30.0 Microalbumin, Urine 86.9 ug/mL (Abnormal) Range: 0.0-17.0 :42 LIPID PANEL (58535) Comments: PATIENT WAS FASTINGPERFORMED BY: [address] [id number] Cholesterol, Total 148 mg/dL (Normal) Range: 100-199 HDL Cholesterol 42 mg/dL (Normal) Comments: According to ATP-III Guidelines, HDL-C >59 mg/dL is considered anegative risk factor for CHD. LDL Cholesterol Calc 78 mg/dL (Normal) Range: 0-99 LDL/HDL Ratio 1.9 {ratio_units} (Normal) Range: 0.0-3.2 Triglycerides 141 mg/dL (Normal) Range: 0-149 VLDL Cholesterol Priscilla 28 mg/dL (Normal) Range: 5-40 :42 CBC WITH MANUAL DIFF (36883) Comments: PATIENT WAS FASTINGClinical Information: ADD DRAW FEE [id number] ADD J 96094 PERFORMED BY: [address] [id number] Baso (Absolute) 0.1 {x10E3/uL} (Normal) Range: 0.0-0.2 [...] B-12 (CYANOCOBALAMIN) Comments: PATIENT WAS FASTINGPERFORMED BY: LabCoAnn [facility]nsic CenterXmgayg9002 [facility] [id number] (68097) Vitamin B12 232 pg/mL (Normal) Range: 211-911 1-Gop-527074:06 Blood Glucose , Office (98544) Blood Glucose , Office 155 (Normal) :27 [...] (Normal) Range: 0.34-4.82 :27 HgA1C , Office (76425) Comments: done>Wf. HgA1C , Office 6.2 % (Normal) Range: 4.6 - 7.1 :27 Blood Glucose , Office (53256) Comments: done>Wf. Blood Glucose , Office 152 [...] 11.6-14.6 WBC 7.5 K/mm3 (Normal) Range: 4.4-11.0 0-Upb-672711:55 COMP METABOLIC A/G 1.2 {RATIO} (Normal) Range: [...] for patient's is the eGFRmultiplied by 1.212. [facility] Laboratory uses the abbreviated Modification [...] Disease W/O Kidney Disease>/= 90 Stage One Sxfxiz88 - 89 Stage Two Suspect Decrease d [...] T PROT 7.3 g/dL (Normal) Range: 6.4-8.2 9-Jyi-510304:55 LIPID CHOL 287 mg/dL (Abnormal) Comments: <200 [...] mg/dL VLDL 50 mg/dL (Abnormal) Range: 5-40 7-Dqx-216087:55 MICROALB:CRE UR MALB:CREAT 28.3 {mg/g_CRE} (Normal) MICROALBUMIN,UR 41.7 mg/L (Normal) UR CREAT 147.6 mg/dL (Normal) 6-Wnv-937217:55 TSH 5.53 {uIU/mL} (Abnormal) Range: 0.34-4.82 58-Dov-164547:25 TSH 0.16 {uIU/mL} (Abnormal) Range: 0.34-4.82 36-Gxr-198856:31 HgA1C , Office (98941) Comments: done km HgA1C , Office 6.5 % (Normal) Range: 4.6 - 7.1 :31 Blood Glucose , Office (16611) Comments: done km Blood Glucose , Office 128 (Normal) 65-Bde-684408:01 TSH 5.15 {uIU/mL} (Abnormal) Range: 0.34-4.82 :12 HgA1C , Office (40235) Comments: done km HgA1C , Office 6.2 % (Normal) Range: 4.6 - 7.1 :12 Blood Glucose , Office (21538) Comments: done km Blood Glucose , Office [...] Serum 117 ng/mL (Normal) Comments: PERFORMED BY: [employer] Global CommunicationsNovant Health Medical Park Hospital [id number] Range: 10-291 :33 Iron and TIBC Comments: PERFORMED BY: [employer] [facility] [id number] Iron Bind.Cap.(TIBC) 304 ug/dL (Normal) Range: 250-450 Iron Saturation 26 % (Normal) Range: 15-55 Iron, Serum 78 ug/dL (Normal) Range: 35-155 UIBC 226 ug/dL (Normal) Range: 150-375 : Vitamin B12 412 pg/mL (Normal) Comments: PERFORMED BY: CORTE[facility] Uhtvvj[address] [facility] [id number] 33 Range: 211-911 :56 LIPID CHOL 222 [...] (Normal) Range: 6.4-8.2 :07 HgA1C , Office (05113) Comments: done km HgA1C , Office 5.9 % (Normal) Range: 4.6 - 7.1 :07 Blood Glucose , Office (37238) Comments: done km Blood Glucose , Office [...] mg/dL (Abnormal) Range: 34-200 Comments: Performed At: [address] [id number] 65-Wkc-244299:08 IRON+TIBC IRON SATURATION 17.9 % (Normal) Range: [...] mg/dL (Normal) Range: 34-200 Comments: Performed At: [address] [id number] :56 IRON+TIBC IRON SATURATION 17.1 % (Normal) [...] 1.49 INDETERMINANT > OR = 1.50 SUGGEST WI :05 CPK TOTAL 149 U/L (Normal) Comments: [...] 1.49 INDETERMINANT > OR = 1.50 SUGGEST WI 7-Oed-934297:15 PRO TIME Comments: Precautions*: NOT APPLICABLE INR 1.0 (Normal) PROTIME 12.6 s (Normal) Range: 11.7-13.3 :15 TROPONIN-I < 0.04 ng/mL (Normal) Comments: Precautions*: NOT APPLICABLE Comments: TROPONIN-I EXPECTED VALUES < 0.50 NEGATIVE 0.50 - 1.49 INDETERMINANT > OR = 1.50 SUGGEST WI 02-Nov-20069:00 BMP Comments: COMMENTS: FEARONPrecautions*: NOT APPLICABLEINDICATE [...] 1.49 INDETERMINANT > OR = 1.50 SUGGEST WI :48 HgA1C , Office (27341) HgA1C , Office 6.4 % (Normal) Range: 4.6 - 7.1 :48 Blood Glucose , Office (26913) Blood Glucose , Office 113 (Normal) Plan [...] Indication: Double vision Double vision : Reviewed Fitting Room Inspector Letter Indication: Double vision Fatty liver : [...] BMI 36.0-36.9,adult Right hip pain : Reviewed Fitting Room Inspector Letter Indication: Right hip pain Right hip [...] (monoclonal gammopathy of unknown significance) : Reviewed Fitting Room Inspector Letter- stable and discharged from onc Indication: [...] Fall down steps, initial encounter : Reviewed Fitting Room Inspector Letter Indication: Fall down steps, initial encounter [...] infarction, unspecified Cerebral infarction, unspecified : Reviewed Fitting Room Inspector Letter Indication: Cerebral infarction, unspecified Upper respiratory [...] Planned Observations CBC, PLATELETS & AUT DIFF (56994)Indication: Other vitamin B12 deficiency anemia On: :17 Request TSH (14409)Indication: Abnormal TSH On: :38 Request T4, FREE (THYROXINE) (56330)Indication: Abnormal TSH On: :38 Request T3, FREE (TRIDOTHYRONINE) (03746)Indication: Abnormal TSH On: :38 Request ANTI-LIVER/KIDNEY MICROSOMAL ANTIBODY (98875)Indication: Elevated liver enzymes On: 88-Xwg-303069:34 Request TSH ([id number])Indication: Abnormal TSH On: 24-Xyn-726503:31 Request T4, FREE (THYROXINE) (86133)Indication: Abnormal TSH On: 87-Pcs-991352:31 Request T3, FREE (TRIDOTHYRONINE) (52969)Indication: Abnormal TSH On: 09-Zpb-564260:31 Request BETA-2 MICROGLOBULIN (40453)Indication: Abnormal blood chemistry On: 91-Tll-754009:08 Request Urinalysis, Office (05939)Indication: Urinary frequency On: 27-Akw-445531:38 Request CBC WITH MANUAL DIFF (11472)Indication: Therapeutic drug monitoring On: :57 Request Metabolic Panel, Basic (89409)Indication: Therapeutic drug monitoring On: :57 Request Methymalonic Acid, Serum (80968)Indication: Vitamin B 12 deficiency On: 56-Uew-859321:51 Request CALCIFIDIOL (74769) VIT D 25Indication: Vitamin D deficiency, unspecified On: 17-Hmx-726013:45 Request LIPID PANEL (00893)Indication: Other and unspecified hyperlipidemia On: 62-Doj-325390:45 Request CALCIFIDIOL (61346) VIT D 25Indication: Uncontrolled type II diabetes mellitus On: :46 Request TSH (34104)Indication: Uncontrolled type II diabetes mellitus On: :46 Request URINALYSIS, W/ MICRO (96566)Indication: Uncontrolled type II diabetes mellitus On: :46 Request MICROALBUMIN: CREATININE RATIO (04466) AND (09245)Indication: Uncontrolled type II diabetes mellitus On: :46 Request METABOLIC PANEL, COMPREHENSIVE (73539)Indication: Uncontrolled type II diabetes mellitus On: :46 Request LIPID PANEL (86361)Indication: Uncontrolled type II diabetes mellitus On: :45 Request CBC W/AUTO DIFF WBC (43974)Indication: Uncontrolled type II diabetes mellitus On: :45 Request Rapid Flu (90837 x 2)Indication: Flu-like symptoms On: 94-Yzh-704400:12 Request VITAMIN B-12 (CYANOCOBALAMIN) (13085)Indication: Vitamin B 12 deficiency On: 12-Wnb-894316:45 Request FECAL OCCULT- Tubes sent home (67178)Indication: Encounter for screening for malignant neoplasm of colon (Renamed from Special screening for malignant neoplasms, colon) On: 03-Hid-263776:35 Request THYROXINE FREE ([id number])Indication: Tachycardia On: 3-Xbl-663124:04 Request FREE TRIDOTHYRONINE (T3) (61291)Indication: Tachycardia On: 1-Mbf-767383:04 Request TSH (THYROID STIMULATING HORMONE) (60575)Indication: Tachycardia On: 9-Drp-075707:04 Request serum immunofixation (99939)Indication: MGUS (monoclonal gammopathy of unknown significance) On: 26-Xxl-002657:14 Request urine immunofixation (74183)Indication: MGUS (monoclonal gammopathy of unknown significance) On: 25-Uap-220266:14 Request serum free light chains (73191)Indication: MGUS (monoclonal gammopathy of unknown significance) On: 42-Yrx-044275:14 Request CBC W/AUTO DIFF WBC (52209)Indication: Diabetes mellitus type 2, controlled On: :13 Request MICROALBUMIN: CREATININE RATIO (93296) AND (23214)Indication: Diabetes mellitus type 2, controlled On: 96-Ihv-008723:13 Request METABOLIC PANEL, COMPREHENSIVE (61235)Indication: Diabetes mellitus type 2, controlled On: 60-Gfr-469199:13 Request LIPID PANEL (87196)Indication: Mixed hyperlipidemia On: 86-Mbb-154026:13 Request VITAMIN B-12 (CYANOCOBALAMIN) (57845)Indication: Other vitamin B12 deficiency anemia On: :12 Request CBC (AUTO) (11604)Indication: Other vitamin B12 deficiency anemia On: :12 Request Vitamin D Hydroxy (13775)Indication: Vitamin D deficiency, unspecified On: :12 Request LIPID PANEL (27991)Indication: Mixed hyperlipidemia On: 7-Zdh-424711:42 Request METABOLIC PANEL, COMPREHENSIVE (85894)Indication: Benign essential hypertension (Renamed from Benign essential HTN) On: 0-Unv-599912:41 Request MICROALBUMIN: CREATININE RATIO (80404) AND (54117)Indication: Benign essential hypertension (Renamed from Benign essential HTN) On: 7-Dqc-080474:41 Request SPEP (65625)Indication: Anemia, unspecified On: 01-Puz-543863:17 Request UPEP (82587)Indication: Anemia, unspecified On: 54-Lad-295019:17 Request CBC W/AUTO DIFF WBC (12752)Indication: Iron (Fe) deficiency anemia On: 2-Ufm-445537:38 Request TSH (30474)Indication: Acquired hypothyroidism On: 7-Kay-725109:38 Request TSH (27281)Indication: Acquired hypothyroidism On: 51-Zpa-230455:34 Request SPEP (80203)Indication: Iron (Fe) deficiency anemia On: 59-Xiu-900375:34 Request UPEP (17791)Indication: Iron (Fe) deficiency anemia On: 26-Bin-564591:34 Request IRON BINDING CAPACITY (TIBC) (28919)Indication: Iron (Fe) deficiency anemia On: :34 Request FERRITIN (46877)Indication: Iron (Fe) deficiency anemia On: :34 Request IRON (78538)Indication: Iron (Fe) deficiency anemia On: :34 Request CBC, PLATELETS & AUT DIFF (91305)Indication: Other vitamin B12 deficiency anemia On: :34 Request VITAMIN B-12 (CYANOCOBALAMIN) (81064)Indication: Other vitamin B12 deficiency anemia On: :33 Request Hemoglobin Glyclated (HGB A1C) (12446)Indication: Diabetes mellitus type 2, controlled On: :33 Request CBC, PLATELETS & AUT DIFF (72411)Indication: Other vitamin B12 deficiency anemia On: : Request VITAMIN B-12 (CYANOCOBALAMIN) (50401)Indication: Other vitamin B12 deficiency anemia On: :30 Request METABOLIC PANEL, COMPREHENSIVE (33986)Indication: Benign essential hypertension (Renamed from Benign essential HTN) On: :30 Request LIPID PANEL (33008)Indication: Other and unspecified hyperlipidemia On: :30 Request Vitamin D Hydroxy (35902)Indication: Vitamin D deficiency, unspecified On: : Request RBWFW-VAYNVECFMMP-JPUGD (48085)Indication: Fatty liver On: :30 Request GHCVG-WWDWQAJDYRC-JNIBD (36774)Indication: Fatty liver On: :24 Request LIPID PANEL (49258)Indication: Mixed hyperlipidemia On: :23 Request TSH (08023)Indication: Acquired hypothyroidism On: :23 Request MICROALBUMIN: CREATININE RATIO (31849) AND (80402)Indication: Diabetes mellitus type 2, controlled On: :23 Request METABOLIC PANEL, COMPREHENSIVE (97127)Indication: Diabetes mellitus type 2, controlled On: :23 Request Vitamin D Hydroxy (71253)Indication: Vitamin D deficiency, unspecified On: : Request CBC, PLATELETS & AUT DIFF (89301)Indication: Other vitamin B12 deficiency anemia On: :20 Request VITAMIN B-12 (CYANOCOBALAMIN) (83283)Indication: Other vitamin B12 deficiency anemia On: 94-Oaa-758260:20 Request Vitamin D Hydroxy (35941)Indication: Vitamin D deficiency, unspecified On: :38 Request VITAMIN B-12 (CYANOCOBALAMIN) (66701)Indication: Other vitamin B12 deficiency anemia On: : Request CBC W/AUTO DIFF WBC (27325)Indication: Other vitamin B12 deficiency anemia On: : Request TSH (33507)Indication: Acquired hypothyroidism On: : Request LIPID PANEL (86734)Indication: Mixed hyperlipidemia On: Request OWYOK-DTOFKWRELNB-HEQRC (57297)Indication: Fatty liver On: : Request PTT (Activated Partial Thromboplastin Time) (04140)Indication: Fatty liver On: : Request PT (Prothrobim Time) (09179)Indication: Fatty liver On: : Request Vitamin D Hydroxy (43981)Indication: Vitamin D deficiency, unspecified On: : Request VITAMIN B-12 (CYANOCOBALAMIN) (10054)Indication: Other vitamin B12 deficiency anemia On: : Request CBC W/AUTO DIFF WBC (85256)Indication: Diabetes mellitus type 2, controlled On: : Request METABOLIC PANEL, COMPREHENSIVE (09230)Indication: Diabetes mellitus type 2, controlled On: : Request LIPID PANEL (63492)Indication: Mixed hyperlipidemia On: : Request LIPID PANEL (55544)Indication: HYPERTENSION, NOS On: :40 Request CBC WITH MANUAL DIFF ([id number])Indication: HYPERTENSION, NOS On: :40 Request METABOLIC PANEL, COMPREHENSIVE (68360)Indication: HYPERTENSION, NOS On: :40 Request FECAL OCCULT- Tubes sent home (59971)Indication: Anemia, unspecified On: Request IRON ([id number])Indication: Anemia, unspecified On: 70-Nxs-391895:38 Request CBC WITH MANUAL DIFF ([id number])Indication: HYPERTENSION, NOS On: 3-Myf-795276:29 Request METABOLIC PANEL, COMPREHENSIVE (63046)Indication: Uncontrolled type II diabetes mellitus On: 9-Nui-555948:28 Request TSH (THYROID STIMULATING HORMONE) ([id number])Indication: Acquired hypothyroidism On: 18-Bit-621675:08 Request HgA1C , Office (89811)Indication: Diabetes mellitus type 2, controlled On: 31-Wmy-039855:55 Request VITAMIN B-12 (CYANOCOBALAMIN) (54480)Indication: Other vitamin B12 deficiency anemia On: 5-Ifh-584960:17 Request LIPID PANEL (93989)Indication: Other and unspecified hyperlipidemia On: 2-Muh-774298:17 Request MICROALBUMIN: CREATININE RATIO (23827) AND (15434)Indication: Uncontrolled type II diabetes mellitus On: 4-Icl-252058:17 Request METABOLIC PANEL, COMPREHENSIVE (03126)Indication: Uncontrolled type II diabetes mellitus On: 1-Xrg-946172:17 Request HgA1C , Office (08771)Indication: Diabetes mellitus type 2, controlled On: 01-Obn-812154:25 Request LIPID PANEL (11221)Indication: Other and unspecified hyperlipidemia On: 36-Bvi-008346:11 Request METABOLIC PANEL, COMPREHENSIVE (63972)Indication: Diabetes mellitus type 2, controlled On: 55-Yhf-013422:11 Request MICROALBUMIN: CREATININE RATIO (62557) AND (11434)Indication: Diabetes mellitus type 2, controlled On: 91-Xxp-993231:11 Request VITAMIN B-12 (CYANOCOBALAMIN) (80853)Indication: Other vitamin B12 deficiency anemia On: 94-Evl-559220:11 Request CBC, PLATELETS & AUT DIFF (61783)Indication: Other vitamin B12 deficiency anemia On: 97-Sds-785180:11 Request Vitamin D Hydroxy (98190)Indication: Vitamin D deficiency, unspecified On: 08-Zac-869017:10 Request Blood Glucose , Office (68956)Indication: Diabetes mellitus type 2, controlled On: :29 Request LIPID PANEL (55840)Indication: Other and unspecified hyperlipidemia On: :26 Request Vitamin D Hydroxy (61215)Indication: Vitamin D deficiency, unspecified On: 4-Eta-515178:26 Request VITAMIN B-12 (CYANOCOBALAMIN) (62051)Indication: Other vitamin B12 deficiency anemia On: : Request METABOLIC PANEL, COMPREHENSIVE (37588)Indication: Benign essential hypertension (Renamed from Benign essential HTN) On: :26 Request MICROALBUMIN: CREATININE RATIO (70850) AND ([id number])Indication: Uncontrolled type II diabetes mellitus On: : Request Sputum Culture (00945)Indication: Chronic cough On: 0-Tdt-277055:58 Request RANI CULTURE-OTHER (97824)Indication: Sore throat On: 96-Yzy-528738:06 Request Urinalysis, Office (53794)Indication: Abnormal urine On: :14 Request RANI CULTURE-OTHER (49301)Indication: Abnormal urine On: 4-Pau-467651:14 Request CCP ANTIBODY (32287)Indication: History of poliomyelitis (Renamed from H/O acute poliomyelitis) On: : Request ANTI-Sm (ANTI [place] ANTIBODY) (89636) test code 793232Rssnbhebuh: History of poliomyelitis (Renamed from H/O acute poliomyelitis) On: : Request RHEUMATOID FACTOR-QUANT (12219) test code [id number]: History of poliomyelitis (Renamed from H/O acute poliomyelitis) On: :22 Request Vitamin D Hydroxy (00704)Indication: Vitamin D deficiency, unspecified On: 71-Zwk-320372:15 Request LIPID PANEL (82934)Indication: Other and unspecified hyperlipidemia On: :15 Request TSH (58636)Indication: Acquired hypothyroidism On: 57-Niq-429736:15 Request METABOLIC PANEL, COMPREHENSIVE (47148)Indication: Diabetes mellitus type 2, controlled On: 19-Bwp-887755:14 Request VITAMIN B-12 (CYANOCOBALAMIN) (39280)Indication: Other vitamin B12 deficiency anemia On: 88-Trq-475942:08 Request MICROALBUMIN: CREATININE RATIO (43225) AND (45377)Indication: Uncontrolled type II diabetes mellitus On: 67-Dwo-026133:30 Request METABOLIC PANEL, COMPREHENSIVE (56078)Indication: Uncontrolled type II diabetes mellitus On: 13-Ggd-671200:30 Request TSH (12432)Indication: Acquired hypothyroidism On: 46-Rsv-408829:30 Request Vitamin D Hydroxy (35918)Indication: Vitamin D deficiency, unspecified On: 57-Shn-485230:30 Request LIPID PANEL (60730)Indication: Other and unspecified hyperlipidemia On: 64-Xpa-462832:29 Request LIPID PANEL (32001)Indication: Other and unspecified hyperlipidemia On: 43-Qjf-094727:51 Request TSH (76907)Indication: Acquired hypothyroidism On: 24-Kdx-789882:50 Request Vitamin D Hydroxy (06096)Indication: Vitamin D deficiency, unspecified On: 82-Lif-485490:50 Request CBC WITH MANUAL DIFF ([id number])Indication: Diabetes mellitus type 2, controlled On: :50 Request METABOLIC PANEL, COMPREHENSIVE (09193)Indication: Diabetes mellitus type 2, controlled On: :50 Request Vitamin D Hydroxy (39214)Indication: Vitamin D deficiency, unspecified On: :44 Request VITAMIN B-12 (CYANOCOBALAMIN) (14329)Indication: Other vitamin B12 deficiency anemia On: :44 Request CBC WITH MANUAL DIFF (68514)Indication: Anemia, unspecified On: :43 Request METABOLIC PANEL, COMPREHENSIVE (77664)Indication: Diabetes mellitus type 2, controlled On: 73-Ujw-049409:43 Request MICROALBUMIN: CREATININE RATIO (14303) AND (44902)Indication: Diabetes mellitus type 2, controlled On: :43 Request LIPID PANEL (14580)Indication: Other and unspecified hyperlipidemia On: 62-Cuc-491993:43 Request TSH (16964)Indication: Acquired hypothyroidism On: :43 Request Vitamin D Hydroxy (96355)Indication: Vitamin D deficiency, unspecified On: :03 Request LIPID PANEL (95141)Indication: Other and unspecified hyperlipidemia On: :03 Request CBC WITH MANUAL DIFF ([id number])Indication: Diabetes mellitus type 2, controlled On: :02 Request METABOLIC PANEL, COMPREHENSIVE (00487)Indication: Diabetes mellitus type 2, controlled On: 9-Vtc-614868:02 Request VITAMIN B-12 (CYANOCOBALAMIN) (83037)Indication: Other vitamin B12 deficiency anemia On: :36 Request Comments: Lot #[id number]-left deltoidDose-1 mlgiven by: Dani Rivera LPN LIPID PANEL (45772)Indication: Other and unspecified hyperlipidemia On: : Request METABOLIC PANEL, COMPREHENSIVE (74939)Indication: Uncontrolled type II diabetes mellitus On: : Request TSH ([id number])Indication: Acquired hypothyroidism On: : Request Vitamin D Hydroxy (31072)Indication: Vitamin D deficiency, unspecified On: : Request CBC WITH MANUAL DIFF (43987)Indication: Anemia, unspecified On: : Request CBC WITH MANUAL DIFF (45594)Indication: Other vitamin B12 deficiency anemia On: :20 Request Blood Glucose , Office (11173)Indication: Uncontrolled type II diabetes mellitus On: :15 Request Comments: 149 HgA1C , Office (97745)Indication: Uncontrolled type II diabetes mellitus On: :15 Request METABOLIC PANEL, COMPREHENSIVE (00222)Indication: Other and unspecified hyperlipidemia On: :22 Request LIPID PANEL (55652)Indication: Other and unspecified hyperlipidemia On: :22 Request TSH (66592)Indication: Acquired hypothyroidism On: 31-Seg-066100:22 Request HEMOGLOBIN GLYCLATED (HGB A1C) (19131)Indication: Abnormal glucose tolerance test On: 02-Liy-024535:20 Request VITAMIN B-12 (CYANOCOBALAMIN) (91227)Indication: Other vitamin B12 deficiency anemia On: 82-Zux-721966:17 Request Vitamin D Hydroxy (80903)Indication: Vitamin D deficiency, unspecified On: 4-Wuw-564576:21 Request VITAMIN B-12 (CYANOCOBALAMIN) (35528)Indication: Other vitamin B12 deficiency anemia On: 3-Jzo-609658:20 Request LIPID PANEL (58005)Indication: Abnormal glucose tolerance test On: 4-Vvo-978456:20 Request CBC WITH MANUAL DIFF (99050)Indication: Abnormal glucose tolerance test On: :20 Request METABOLIC PANEL, COMPREHENSIVE (02115)Indication: Abnormal glucose tolerance test On: :20 Request METABOLIC PANEL, COMPREHENSIVE (49861)Indication: Abnormal glucose tolerance test On: 5-Amt-537070:59 Request CBC WITH MANUAL DIFF (61061)Indication: Abnormal glucose tolerance test On: :59 Request Vitamin D Hydroxy (01681)Indication: Vitamin D deficiency, unspecified On: :59 Request VITAMIN B-12 (CYANOCOBALAMIN) (89607)Indication: Other vitamin B12 deficiency anemia On: :59 Request TSH (60608)Indication: Acquired hypothyroidism On: 9-Gvv-767318:58 Request LIPID PANEL (09372)Indication: Other and unspecified hyperlipidemia On: :58 Request CCP ANTIBODY (07932)Indication: Pain in unspecified joint On: 71-Iup-845252:22 Request VITAMIN B-12 (CYANOCOBALAMIN) (87822)Indication: Other vitamin B12 deficiency anemia On: 6-Hml-828909:10 Request Vitamin D Hydroxy (01374)Indication: Vitamin D deficiency, unspecified On: 3-Sye-397453:10 Request MICROALBUMIN: CREATININE RATIO (79580) AND (26868)Indication: Uncontrolled type II diabetes mellitus On: 6-Wqr-433286:10 Request CBC WITH MANUAL DIFF (60555)Indication: Uncontrolled type II diabetes mellitus On: 7-Iep-265430:10 Request METABOLIC PANEL, COMPREHENSIVE (43084)Indication: Benign essential hypertension (Renamed from Benign essential HTN) On: 5-Nog-426718:09 Request LIPID PANEL (73311)Indication: Other and unspecified hyperlipidemia On: 4-Ryf-810296:09 Request TSH (39295)Indication: Acquired hypothyroidism On: 9-Yqv-058736:39 Request VITAMIN B-12 (CYANOCOBALAMIN) (50148)Indication: Other vitamin B12 deficiency anemia On: 7-Jyk-357673:37 Request HEPATIC FUNCTION PANEL (10065)Indication: Other and unspecified hyperlipidemia On: 1-Gbr-931219:36 Request LIPID PANEL (42843)Indication: Other and unspecified hyperlipidemia On: 5-Htj-941094:36 Request Vitamin D Hydroxy (42313)Indication: Vitamin D deficiency, unspecified On: 0-Omj-439161:36 Request METABOLIC PANEL, COMPREHENSIVE (73971)Indication: Benign essential hypertension (Renamed from Benign essential HTN) On: :35 Request LIPID PANEL (89074)Indication: Other and unspecified hyperlipidemia On: :35 Request Vitamin D Hydroxy (92122)Indication: Vitamin D deficiency, unspecified On: :30 Request Vitamin D Hydroxy (87087)Indication: Vitamin D deficiency, unspecified On: 78-Low-929715:10 Request MICROALBUMIN: CREATININE RATIO (21099) AND (42218)Indication: Uncontrolled type II diabetes mellitus On: 00-Aih-973074:07 Request LIPID PANEL (78205)Indication: Other and unspecified hyperlipidemia On: 90-Jpp-484597:07 Request TSH (53441)Indication: Acquired hypothyroidism On: 56-Phl-549705:07 Request VITAMIN B-12 (CYANOCOBALAMIN) (64513)Indication: Other vitamin B12 deficiency anemia On: 50-Elb-910659:42 Request Vitamin D Hydroxy (27937)Indication: Vitamin D deficiency, unspecified On: 00-Kks-146512:50 Request IRON BINDING CAPACITY (TIBC) (40133)Indication: Iron (Fe) deficiency anemia On: 90-Yqe-459800:50 Request LDH (LD) (LACTATE DEHYDROGENASE) (14144)Indication: Iron (Fe) deficiency anemia On: 11-Rdp-354145:50 Request FERRITIN (72859)Indication: Iron (Fe) deficiency anemia On: 84-Qvg-312857:50 Request IRON (32688)Indication: Iron (Fe) deficiency anemia On: 26-Lqq-480805:50 Request CBC WITH MANUAL DIFF (12248)Indication: Iron (Fe) deficiency anemia On: 00-Vdf-139941:50 Request HEPATIC FUNCTION PANEL (59559)Indication: Other and unspecified hyperlipidemia On: 39-Rjz-201062:44 Request LIPID PANEL (54264)Indication: Other and unspecified hyperlipidemia On: :44 Request CBC WITH MANUAL DIFF (21452)Indication: Other vitamin B12 deficiency anemia On: 4-Dwe-220535:54 Request MICROALBUMIN: CREATININE RATIO (04383) AND (55036)Indication: Glucose intolerance (no malabsorption) On: 5-Bmh-953007:54 Request METABOLIC PANEL, COMPREHENSIVE (13732)Indication: HYPERTENSION, NOS On: 1-Syr-895501:54 Request LIPID PANEL (72207)Indication: Other and unspecified hyperlipidemia On: 3-Wom-196468:53 Request VITAMIN B-12 (CYANOCOBALAMIN) (54573)Indication: Other vitamin B12 deficiency anemia On: :53 Request IRON (52251)Indication: Iron (Fe) deficiency anemia On: :53 Request Vitamin D Hydroxy (40480)Indication: Osteopenia On: :49 Request Methylmalonic acid, serum 93129Jdenubmnff: Other vitamin B12 deficiency anemia On: 40-Bjk-389163:03 Request VITAMIN B-12 (CYANOCOBALAMIN) (16218)Indication: Other vitamin B12 deficiency anemia On: :03 Request TSH (69478)Indication: Acquired hypothyroidism On: :03 Request HgA1C , Office (34238)Indication: Abnormal glucose tolerance test On: 9-Zkr-079825:06 Request TSH (59785)Indication: Acquired hypothyroidism On: :35 Request LIPID PANEL (61328)Indication: Other and unspecified hyperlipidemia On: :35 Request METABOLIC PANEL, COMPREHENSIVE (03490)Indication: SOB (shortness of breath) on exertion On: :34 Request CBC WITH MANUAL DIFF (04746)Indication: SOB (shortness of breath) on exertion On: :34 Request TSH (90608)Indication: Acquired hypothyroidism On: 6-Bed-871628:46 Request Comments: do in 6 weeks TSH (30451)Indication: Acquired hypothyroidism On: 39-Rhh-914699:15 Request Comments: DO IN 6 WEEKS WITH MEDICATION CHANGE TSH (84641)Indication: Other malaise and fatigue On: 99-Xbc-82266:49 Request Iron Binding Capacity (TIBC) (08610)Indication: Iron (Fe) deficiency anemia On: 59-Zge-790522:43 Request Ferritin (40795)Indication: Iron (Fe) deficiency anemia On: :43 Request Iron (00060)Indication: Iron (Fe) deficiency anemia On: :43 Request HEPATIC FUNCTION PANEL (56189)Indication: Mixed hyperlipidemia On: :42 Request LIPID PANEL (62567)Indication: Mixed hyperlipidemia On: :42 Request Comments: do in 3 months HEPATIC FUNCTION PANEL (09396)Indication: Mixed hyperlipidemia On: :11 Request LIPID PANEL (23141)Indication: Mixed hyperlipidemia On: 2-Ewa-373942:11 Request Comments: do in 3 mo TSH (60705)Indication: Acquired hypothyroidism On: :23 Request VITAMIN B-12 (CYANOCOBALAMIN) (06730)Indication: Anemia, unspecified On: :23 Request LDH (LD) (LACTATE DEHYDROGENASE) (70495)Indication: Anemia, unspecified On: :23 Request RETICULOCYTE COUNT MANUL (72439)Indication: Anemia, unspecified On: :23 Request IRON BINDING CAPACITY (TIBC) (50633)Indication: Anemia, unspecified On: :23 Request IRON (42402)Indication: Anemia, unspecified On: :23 Request FOLIC ACID SERUM (53194)Indication: Anemia, unspecified On: :23 Request HAPTOGLOBIN (76575)Indication: Anemia, unspecified On: :23 Request FERRITIN (50983)Indication: Anemia, unspecified On: :23 Request CBC, PLATELETS & AUT DIFF (75415)Indication: Anemia, unspecified On: :23 Request HgA1C , Office (24024)Indication: Abnormal glucose tolerance test On: :03 Request CBC with manual diff ([id number])Indication: Anemia, unspecified On: 12-Rcs-911950:49 Request HgA1C , Office (64926)Indication: Abnormal glucose tolerance test On: 80-Mve-907780:30 Request Comments: controlled URINALYSIS W/O MICRO (11856)Indication: HYPERTENSION, NOS On: :03 Request TSH (97593)Indication: Acquired hypothyroidism On: :03 Request MICROALBUMIN URINE QUANT ([id number])Indication: HYPERTENSION, NOS On: :03 Request METABOLIC PANEL, COMPREHENSIVE ([id number])Indication: HYPERTENSION, NOS On: :03 Request LIPID PANEL (87099)Indication: HYPERTENSION, NOS On: : Request CBC WITH MANUAL DIFF ([id number])Indication: HYPERTENSION, NOS On: : Request Planned Encounters Medical; 2 Week FU - On: 31-Jul-2018 12:00 [facility] Doris Navarro DO, DO, Doris Jay DO Planned Procedures Radiology - Lumbar SpineBy: Melanie On: 24-Jun-2018 Intent Doris KEBEDE DO, Doris Jay DO Aerosol Treatment ([id number])By: On: 14-Apr-2018 Intent Thelma Sofia Comments: Lungs clear after albuterol aerosol treatment Ultrasound - LiverBy: Melanie KEBEDE, On: 21-Nov-2017 Intent Doris Navarro DO, Doris Jay DO B 12 Injection, 1000 mcg ([id number])By: On: 21-Nov-2017 Doris Guerrero DO, DO, Comments: Vitamin b12 1000mcg injection lot:[id number]:04/2019L DELT IMpt tolerated well [facility],PULMONARY CARE NURSE Doris Jay DO PHYSICAL THERAPY (53339)By: [place] On: 28-Oct-2017 Intent Thelma Radiology - Hip - LeftBy: [place], On: 28-Oct-2017 Intent Thelma Aerosol Treatment (63363)By: Melanie On: 07-Aug-2017 Intent Doris KEBEDE DO, Kathleen Comments: more a/e less nois e Doris Navarro DO Spirometry (66981)By: Melanie KEBEDE, On: 07-Aug-2017 Intent Doris Jay DO Comments: really poor techniq DO, Doris Radiology - Chest- PA and LatBy: On: 07-Aug-2017 Intent Melanie DO, Doris Melanie DO, Doris Melanie DO, Doris IV Needle placement (34929)By: On: 02-Aug-2017 Intent Melanie DO, Doris Melanie DO, Doris Melanie DO, Doris INFUSION, NORMAL SALINE SOLUTION , On: 02-Aug-2017 Intent 1000 CC (Special Coverage Comments: lot:[id number]:02-26-2019rte:right anticubdose:1000ml given by:david Snow, CARYN Instructions Apply. See MCM: 2048) ([id number])By: Melanie KEBEDE, Doris Melanie DO, Doris Melanie DO, Doris INFUSION, NORMAL SALINE SOLUTION , On: 01-Aug-2017 Intent 1000 CC (Special Coverage Comments: lot:[id number]:02-26-2019rte:IV left anticubdose:1000ml NS given by:david Snow, PULMONARY CARE NURSE Instructions Apply. See MCM: 2048) ([id number])By: Marcia Britton Aerosol Treatment ([id number])By: Melanie On: 01-Aug-2017 Intent DO, Doris Navarro DO, Doris Comments: more a/e less junky sounding Doris Navarro DO PNEUM VAC ADLT/IMUMNOSPR, SBC/INTRM On: 25-Apr-2017 Intent (55618)By: Doris Navarro DO Comments: 0.5cc given sq lt arm lot [id number] exp 09/05/18 Melanie KEBEDE, Doris Navarro DOJdDoris INTENSIVE BEHAVIORAL THERAPY TO On: 25-Apr-2017 Intent REDUCE CARDIOVASCULAR DISEASE RISK, INDIVIDUAL, [id number], ANNUAL, 15 MINUTES (G0446)By: Doris Navarro DO Melanie DO, Doris Melanie DO, Doris [id number] BEHAVIORAL COUNSELING On: 25-Apr-2017 Intent FOR OBESITY, 15 MINUTES (G0447)By: Doris Navarro DO DO, Doris Navarro DODoris B 12 Injection, 1000 mcg (J3420)By: On: 25-Apr-2017 Intent Doris Navarro DO DO, Comments: 1 ml given lt arm lot [id number] exp 8/18 Doris Melanie DO, Doris ELECTROCARDIOGRAM, COMPLETE (ECG) On: 25-Apr-2017 Intent ([id number])By: Doris Navarro DO Comments: nsr no acute chg Melanie DO, Doris Melanie DO, Doris B 12 Injection, 1000 mcg (J3420)By: On: 14-Mar-2017 Intent Melanie DO, Doris Melanie DO, Comments: lot [id number] 09/16left [id number] mcgas, PULMONARY CARE NURSE Doris Melanie DO, Doris B 12 Injection, 1000 mcg (J3420)By: On: 31-Dec-2016 Intent Melanie DO, Doris Melanie DO, Comments: [id number], PULMONARY CARE NURSE Doris Melanie DO, Doris B 12 Injection, 1000 mcg (J3420)By: On: 20-Sep-2016 Intent Melanie DO, Doris Melanie DO, Comments: lot:[id number]: 11/13Dose: 1,000 mcgSite: R dltdLocation; IMby:, PULMONARY CARE NURSE Doris Melanie DO, Doris Solu- Medrol Injection, 125mg On: 20-Aug-2016 Intent ([id number])By: Doris Navarro DO Comments: lot: [id number]: 01/14site/route: LGM/IMamt:2mLVIS signed when applicableChelsea, [employer] Melanie DO, Doris Melanie DO, Doris Aerosol Treatment ([id number])By: Melanie On: 20-Aug-2016 Intent DO, Doris Melanie DO, Doris Comments: albulterol 0.83%relistedned nad more a/e less noise Melanie DO, Doris B 12 Injection, 1000 mcg (J3420)By: On: 20-Aug-2016 Intent Melanie DO, Doris Melanie DO, Comments: lot: [id number]: ite/route: L del/IMamt: 1mLVIS signed when applicableChelsea, [employer] Doris Melanie DO, Doris Spirometry ([id number])By: Melanie KEBEDE, On: 16-Aug-2016 Intent Doris Melanie DO, Doris Melanie Comments: ok stable - DO Doris Aerosol Treatment ([id number])By: Melanie On: 16-Aug-2016 Intent Doris KEBEDE DO, Kathleen Comments: albulterol 0.83%more a.e stil some niose in RUL -- junky and easy to cough Doris Navarro DO Solu- Medrol Injection, 125mg On: 16-Aug-2016 Intent (J2930)By: Doris Navarro DO Comments: lot [id number] mgright gm, IMas PULMONARY CARE NURSE Melanie DO, Doris Melanie DO, Doris B 12 Injection, 1000 mcg (J3420)By: On: 20-Jul-2016 Intent Doris Navarro DO, DO, Comments: B12lot:[id number]:ite:rt deltroute:IMdose:1mlD.HAY Valentin Melanie DODoris Solu- Medrol Injection, 125mg On: 20-Jul-2016 Intent (J2930)By: Doris Navarro DO Comments: lot: [id number]: 01/14site/route: RGM/IMamt: 2mLVIS signed when applicableChelsSIMI jamison Melanie DO, Doris Melanie DO, Doris Aerosol Treatment ([id number])By: Melanie On: 20-Jul-2016 Intent Doris KEBEDE DO, Kathleen Comments: less wheeze good a/e- less irritability with breathing Doris Navarro DO Radiology - Chest- PA and LatBy: On: 20-Jul-2016 Intent Doris Navarro DO Melanie DO, Doris MelanieDoris driscoll DO Spirometry ([id number])By: Melanie KEBEDE, On: 20-Jul-2016 Intent Doris Jay DO Comments: mild restriction =- poor curve and technique Doris KEBEDE ELECTROCARDIOGRAM, COMPLETE (ECG) On: 20-Jul-2016 Intent ([id number])By: Doris Navarro DO Comments: sinus braden no acute chg Melanie DODoris Melanie DO, Doris B 12 Injection, 1000 mcg (J3420)By: On: 29-May-2016 Intent Melanie DO, Doris Melanie DO, Comments: Lot:[id number]:11/13Dose:1mlRoute:IMSite:joe geigerGiven By:SAADIA signed Doris Melanie DO, Doris Flu Vaccine (Quadrivalent) [id number]: On: 29-May-2016 Intent Melanie DO, Doris Melanie DO, Comments: Lot:[id number]:01/25/17Dose:0.5mLRoute:IMSite:L DltdGiven By:SAADIA signed Doris Melanie DO, Doris B 12 Injection, 1000 mcg (J3420)By: On: 21-May-2016 Intent Melanie DO, Doris Melanie DO, Doris Melanie DO, Doris B 12 Injection, 1000 mcg (J3420)By: On: 18-May-2016 Intent Melanie DO, Doris Melanie DO, Comments: B12lot:[id number]:ite:rt deltroute:IMdose:1mlD.HAY Valentin Doris Melanie DO, Doris B 12 Injection, 1000 mcg (J3420)By: On: 11-May-2016 Intent Melanie DO, Doris Melanie DO, Comments: lot [id number] [facility] dltdaCARYN milligan Doris Melanie DO, Doris B [...] 09-Apr-2016 Intent REDUCE CARDIOVASCULAR DISEASE RISK, INDIVIDUAL, SBLB-RM-VGTG, ANNUAL, 15 MINUTES (G0446)By: Melanie DO, Doris Melanie DO, Doris Melanie DO, Doris [id number]-KH-[id number] BEHAVIORAL COUNSELING On: 09-Apr-2016 Intent FOR OBESITY, 15 MINUTES (G0447)By: Melanie DO, Doris Melanie DO, Doris Melanie DO, Doris MAMMOGRAM, SCREENING, BOTH BREAST On: 09-Apr-2016 Intent ([id number])By: Melanie DO, Doris Melanie DO, Doris Melanie DO, Doris DEXA SCAN AXIAL SKELETON (21020)By: On: 09-Apr-2016 Intent Melanie DO, Doris Melanie [...] Comments: Lot:[id number]:04/14Dose:1mlRoute:IMSite:l armGiven By:SAADIA signed Aerosol Treatment (23280)By: Alexy On: 03-Aug-2015 Intent DO, Maggie A B 12 Injection, 1000 mcg (J3420)By: On: 17-May-2015 Intent Camelia Tracey DOa A Comments: Lot:[id number]:11/12Dose:1mlRoute:IMSite:l armGiven By:SAADIA signed Flu Vaccine (Quadrivalent) 28160Zy: On: 17-May-2015 Intent Camelia Tracey DOa A Comments: lot [id number]: 01/26/2016site/route L sol, IMamt 0.5mlVIS and ABN signed when applicableChelsea, CMAFM4 ADMINISTRATION OF INFLUENZA VIRUS On: 17-May-2015 Intent VACCINE (G0008)By: Camelia Tracey DOa A B 12 Injection, 1000 mcg (J3420)By: On: 15-Feb-2015 Intent Kanika Georges Comments: Lot:[id number]:11.16Route:IMSite:R deltoidDose: 1 mLgiven by: Kanika Georges CMA DANIEL (Ankle Brachial Index) On: 08-Feb-2015 Intent ([id number])By: Camelia Tracey DOa A Radiology - Lumbar SpineBy: Alexy KEBEDE, On: 08-Feb-2015 Intent Maggie A Ultrasound - ThyroidBy: Alexy KEBEDE, On: 09-Nov-2014 Intent Maggie A B 12 Injection, 1000 mcg (J3420)By: On: 09-Nov-2014 Intent Alexy KEBEDE Maggie A Comments: lot [id number] mcgleft dltdIMas, PULMONARY CARE NURSE Radiology - Chest- PA and LatBy: On: 13-Sep-2014 Intent Alexy KEBEDE Amggie A Comments: call stat Pulse Oximetry ([id number])By: Alexy KEBEDE On: 13-Sep-2014 Intent Maggie Armstrong Comments: 97% Inhaler Demonstration (44271)By: On: 07-Sep-2014 Intent Kimberley Loyd CNP Radiology - Chest- PA and LatBy: On: 14-Jul-2014 Intent Maggie Tracey DO Comments: call rsults Spirometry (04496)By: Alexy KEBEDE, On: 14-Jul-2014 Intent Maggie Armstrong Comments: good effort and curve mild rest /obst Prevnar 13 (28711)By: Alexy KEBEDE, On: 30-Jun-2014 Intent Maggie Armstrong Comments: lot [id number] 09/2015location L armroute imgiven by - msmithVIS and/or ABN signed MAMMOGRAM, SCREENING, BOTH BREAST On: 14-Apr-2014 Intent ([id number])By: Maggie Tracey DO B 12 Injection, 1000 mcg (J3420)By: On: 14-Apr-2014 Intent Maggie Tracey DO Comments: Lot #:[id number] date:mount given:1mlRoute: IMSite given: left deltoidGiven by: HAY Zavala Cartoid DopplerBy: Maggie Tracey DO On: 14-Apr-2014 Intent Eprescribed prescriptions (G8553)By: On: 07-Oct-2013 Intent Maggie Tracey DO DXA, BONE DENSITY, AXIAL SKELETON On: 20-Jul-2013 Intent ([id number])By: Maggie Tracey DO Comments: aug Pelvic and Breast, Medicare On: 20-Jul-2013 Intent (G0101)By: Maggie Tracey DO Cartoid DopplerBy: Maggie Tracey DO On: 07-Jul-2013 Intent Eprescribed prescriptions (G8553)By: On: 07-Jul-2013 Intent Raiza Ortiz FLU VAC, SPLIT, >3 YEARS, INTRAMUSC On: 04-May-2013 Intent ([id number])By: Maritza Cantor Comments: lot [id number] 2014site/route L sol, IMamt 0.5mlVIS and ABN signed when applicableChelsea, [facility] ADMINISTRATION OF INFLUENZA VIRUS On: 04-May-2013 Intent VACCINE (G0008)By: Manchak, Maritza Radiology - Hip - LeftBy: Alexy KEBEDE, On: 07-Apr-2013 Intent Maggie Armstrong Eprescribed prescriptions (G8553)By: On: 07-Apr-2013 Intent Raiza Ortiz Eprescribed prescriptions (G8553)By: On: 05-Jan-2013 Intent Raiza Ortiz Spirometry ([id number])By: Alexy KEBEDE, On: 01-Dec-2012 Intent Maggie Armstrong Comments: good effort and curve normal Radiology - Chest- PA and LatBy: On: 01-Dec-2012 Intent Maggie Tracey DO Comments: stat call wet read Eprescribed prescriptions (G8553)By: On: 01-Dec-2012 Intent Raiza Ortiz Pulse Oximetry ([id number])By: Angel, On: 01-Dec-2012 Intent Raiza Comments: 98% Eprescribed prescriptions (G8553)By: On: 27-Nov-2012 Intent Melanie DO, Doris Melanie DO, Doris Melanie DO, Doris MAMMOGRAM, SCREENING, BOTH BREASTS On: 29-Sep-2012 Intent ([id number])By: Maggie Tracey DO EKG (14643)By: Raiza Ortiz On: 29-Sep-2012 Intent Comments: ekg- 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 axis and no acute st t wave changes Eprescribed prescriptions (G8553)By: On: 29-Sep-2012 Intent Raiza Ortiz Eprescribed prescriptions (G8553)By: On: 03-Sep-2012 Intent Raiza Ortiz Eprescribed prescriptions (G8553)By: On: 30-Jul-2012 Intent Raiza Ortiz B 12 Injection, 1000 mcg (J3420)By: On: 23-Jun-2012 Intent Maggie Tracey DO Comments: Lot:[id number]:Dose:1mlRoute:IMSite:Anuel Bauer By:SAADIA signed Eprescribed prescriptions (G8553)By: On: 23-Jun-2012 Intent Raiza Ortiz B 12 Injection, 1000 mcg (J3420)By: On: 25-Mar-2012 Intent Maricruz Rivera LPN Comments: Lot #[id number]-06/10Site-right deltoidDose-1 mlgiven by: Dani Rivera LPN Eprescribed prescriptions (G8553)By: On: 25-Mar-2012 Intent Alexy DO Maggie A FLU VAC, SPLIT, >3 YEARS, INTRAMUSC On: 25-Mar-2012 Intent ([id number])By: Patsy Leslie LPN Comments: Lot/Exp: [id number], 12/2011Given in L Dltd, IMPrefilled SyringeBy CARYN Garner ADMINISTRATION OF INFLUENZA VIRUS On: 25-Mar-2012 Intent VACCINE (G0008)By: Patsy Leslie LPN Echo CompleteBy: Fast DO, Maggie A On: 07-Dec-2011 Intent B 12 Injection, 1000 mcg (J3420)By: On: 07-Dec-[address] - OtherBy: Fast DO, Maggie A On: 03-Oct-2011 Intent Comments: get cta of carotid arteries TDAP VACCINE >7 IM ([id number])By: On: 03-Oct-2011 Intent Raiza Ortiz B 12 Injection, 1000 mcg (J3420)By: On: 07-Sep-2011 Intent Raiza Ortiz Comments: Lot #[id number]-07/09Site-left deltoidDose-1 mlgiven by: Dani Rivera LPN Cartoid DopplerBy: Fast DO, Maggie A On: 07-Sep-2011 Intent Comments: in september DXA, BONE DENSITY, AXIAL SKELETON On: 07-Sep-2011 Intent ([id number])By: Fast DO Maggie A MAMMOGRAM, SCREENING, BOTH BREASTS On: 07-Sep-2011 Intent (10091)By: Fast DO Maggie A Aerosol Treatment (78765)By: Ciesa On: 08-Aug-2011 Intent Kimberley LOVE EKG (70309)By: Raiza Ortiz On: 06-Jun-2011 Intent Comments: ekg showed normal sinus rhythym, left axis, no acute st/t wave changes DXA, BONE DENSITY, AXIAL SKELETON On: 06-Jun-2011 Intent (95097)By: Fast DO, Maggie A FLU VAC, SPLIT, >3 YEARS, INTRAMUSC On: 11-May-2011 Intent ([id number])By: Maricruz Rivera LPN Comments: Lot #[id number]-83/20/Site-left deltoidgiven by: Dani Rivera LPN B 12 [...] PNEUM VAC ADLT/IMUMNOSPR, SBC/INTRM On: 03-Jul-2010 Intent ([id number])By: Maggie Tracey DO Comments: Lot #[id number]-3/10/07Site-left deltoidDose- 0.5mlgiven by:GAL ADMINISTRATION OF PNEUMOCOCCAL On: 03-Jul-2010 Intent VACCINE (G0009)By: Maggie Tracey DO MAMMOGRAM, SCREENING, BOTH BREASTS On: 03-Jul-2010 Intent (62025)By: Maggie Tracey DO B 12 Injection, 1000 mcg (J3420)By: On: 20-Jun-2010 Intent Maggie Tracey DO Comments: Lot #[id number]-12/07Site-left deltoidDose-1 mlgiven by:[facility] B 12 Injection, 1000 mcg (J3420)By: On: 10-May-2010 Intent Apoorva Calle Comments: Lot:[id number]:12/07Dose:1000mcg/1mlRoute:IMSite:right deltoid Given by: HAY Birch FLU VAC, SPLIT, >3 YEARS, INTRAMUSC On: 10-May-2010 Intent (83271)By: Apoorva Calle Comments: Lot:[id number] 4PExp:10/2010Dose:0.5mlRoute:IMSite:Left Deltoid Given by: HAY Birch ADMINISTRATION OF INFLUENZA VIRUS On: 10-May-2010 Intent VACCINE (G0008)By: Apoorva Calle Doppler Ultrasound OtherBy: Alexy KEBEDE, On: 12-Apr-2010 Intent Maggie A Comments: both legs stat- left leg swelling- call wet read Spirometry (60958)By: Alexy KEBEDE, On: 12-Apr-2010 Intent Maggie Nathaniel Comments: good effort and curve normal B 12 Injection, 1000 mcg (J3420)By: On: 05-Apr-2010 Intent Maggie Tracey DO Ultrasound - GallbladderBy: Alexy KEBEDE, On: 01-Feb-2010 Intent Maggie A IV Needle placement (10147)By: On: 10-Jan-2010 Intent Ana Guzman Comments: IV 22 gauge inserted in right antecubital on first attempt and 0.9 NSS running without difficulty-AW INFUSION, NORMAL SALINE SOLUTION , On: 10-Jan-2010 Intent 1000 CC (Special Coverage Instructions Apply. See MCM: 2049) (J7030)By: Kimberley Loyd CNP THER/PROPH/DIAG INJ, SC/IM On: 10-Jan-2010 Intent ([id number])By: Kimberley Loyd CNP Radiology - Knee - Right - Weight On: 03-Jan-2010 Intent BearingBy: Maggie Tracey DO EKG (21026)By: Raiza Ortiz On: 03-Jan-2010 Intent Comments: ekg showed normal sinus rhythym, left axis, no acute st/t wave changes Aerosol Treatment ([id number])By: Ruthesa On: 19-Oct-2009 Intent IVAN Kimberley Poe Cartoid DopplerBy: Maggie Tracey DO On: 14-Jun-[address] - Brain/HeadBy: Maggie Tracey DO On: 06-Jun-2009 Intent MAMMOGRAM, SCREENING, BOTH BREASTS On: 06-Jun-2009 Intent ([id number])By: Maggie Tracey DO DXA, BONE DENSITY, AXIAL SKELETON On: 06-Jun-2009 Intent (87911)By: Maggie Tracey DO FLU VAC, SPLIT, >3 YEARS, INTRAMUSC On: 12-May-2009 Intent (53986)By: Maricruz Rivera LPN Comments: Lot #[id number]-left deltoidgiven by:[facility] ADMINISTRATION OF INFLUENZA VIRUS On: 12-May-2009 Intent VACCINE (G0008)By: Maricruz Rivera LPN Radiology - Hand - RightBy: Alexy KEBEDE, On: 26-Jan-2009 Intent Maggie Armstrong Radiology - Wrist - RightBy: Alexy On: 26-Jan-2009 Intent Maggie KEBEDE Comments: call wet read Pulse Oximetry (87097)By: Alexy KEBEDE, On: 27-Dec-2008 Intent Maggie Armstrong Comments: 98 Inhaler Demo ([id number])By: Alexy KEBEDE, On: 27-Dec-2008 Intent Maggie A Spirometry (85828)By: Alexy KEBEDE, On: 27-Dec-2008 Intent Maggie A Comments: good effort and curve has small airways diminished Radiology - Chest- PA and LatBy: On: 27-Dec-2008 Intent Maggie Tracey DO Echo CompleteBy: Maggie Tracey DO On: 08-Nov-2008 Intent Comments: elevated bp - increase patricia EKG (27919)By: Maggie Tracey DO On: 08-Nov-2008 Intent Comments: ekg showed normal sinus rhythym, leftl axis, no acute st/t wave changes rsr unchanged Bio Z (15900)By: Alexy KEBEDE Maggie A On: 08-Nov-2008 Intent Inhaler Demo (83155)By: Melanie KEBEDE, On: 02-Sep-2008 Intent Doris Melanie DO, Doris Melanie DO, Doris Aerosol Treatment (55268)By: Melanie On: 02-Sep-2008 Intent Doris KEBEDE Melanie DO, Doris Comments: less echoey -- better less cough Doris Navarro DO EKG (05617)By: Doris Navarro DO On: 16-Dec-2007 Intent Melanie [...] LSN TRNK/ARM/LEG On: 09-Jul-2007 Intent 0.6-1.0 CM (45514)By: Kimberley Loyd CNP BIOPSY OF SKIN LESION, SINGLE On: 09-Jul-2007 Intent (26353)By: Kimberley Loyd CNP SHAVE SKIN LESION, TRUNK/ARM/LEG On: 02-Jul-2007 Intent (35150)By: Kimberley Loyd CNP BIOPSY OF SKIN LESION, SINGLE On: 02-Jul-2007 Intent (47907)By: Kimberley Loyd CNP B 12 Injection, 1000 mcg (J3420)By: On: 02-Jul-2007 Intent Lashonda Lee LPN FLU VAC, SPLIT, >3 YEARS, INTRAMUSC On: 04-Jun-2007 Intent (48915)By: Jing Cabello RN Comments: Lot #: [id number] date: 01/03Amount given: 0.5 MLRoute: IMSite given: Left deltoidGiven by: Nathaniel Beal LPN IMMUNIZ ADMNIN, 1 VAC, SNGL/COMBO On: 04-Jun-2007 Intent (00867)By: Mast Jing ALBARRAN B 12 Injection, 1000 [...] DO, Doris Melanie DO, Doris IV Infusion (55372)By: Melanie KEBEDE, On: 18-Oct-2006 Intent Doris Melanie DO, Doris Melanie DO, Doris EKG (89538)By: Doris Navarro DO On: 10-Oct-2006 Intent Melanie [...] The patient does have durable power of trademark attorney and living will. Other providers contributing [...] 13 steps at home. I was at [place] for 3 days in ICU I broke [...] The patient does have durable power of trademark attorney and living will. The patient has [...] and she off pravastatin and went to [place] and now on 5 mg of crestor- and tolerated she got leg pain and weakness on pravachol- - she got good [facility] in [place]- --bp is good and cough gone and [...] The patient does have durable power of trademark attorney and living will. The damián ent [...] since going to the urgent care at [facility]- on atb yet but will [...] feels good- bp is great- went to [facility] for vascular check and said [...] stroke sx mood controlled has followup in [facility] for vascular issues soon- no [...] The patient does have durable power of trademark attorney and living will. The patient has [...] not home- no gerd - went to [place] for artery checks and doing ok there- [...] laboratory test results: she went back to [facility] Saw Dr Shruthi Quinones- ??head [...] note: (stroke she was at [facility] x 5days released on saturday05/22/12 to [...] visit: note: (TIA. ??Patient was seen by [facility] ER x 3 times last week and then sent to [facility] for psych eval.). 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
--- OUTSIDE RECORDS SUMMARY | 2018-10-18 13:24 | XMS RPT_ITS | Continuity of Care Document ---
:1940 Author Organization [facility] Address [address] [facility] [address] [place] [address] Phone Care Team Providers Name Role Phone Doris Navarro DO Unavailable Camacho Serrano Unavailable Flakito Morales Unavailable [facility], [facility] Unavailable Marcello Stein Unavailable Sal Urrutia [...] artery stenosis (I65.23, 433.10) Comments: goes to [facility] yearly to follow Status: Active Bilateral [...] related to fatty liver -- did nutrition dianetic counselor and wt loss / metformin and [...] from Cardiac murmur) (R01.1, 785.2) Status: Active Herpes zoster without complication (B02.9, 053.9) Status: Active History of poliomyelitis (Renamed from [...] days Quantity: 30 {Tablet} Refills: 3 Ordered:24-Jun-2018 Arnlod Navarro DO, DO, KathleenFearon DO, Kathleen Start [...] Ordered:12-May-2018 Arnold Navarro DO, DO, KathleenFearon DO, Doris Start : 12-May-2018 Active Plavix 75 MG [...] DO, Kathleen Start : 14-Aug-2018 Active Comments:one vqrxhyxK99.90Oarrs pulled 08/14/18 TraZODone HCl 100 MG Oral Tablet 1-1/2 Tablet qhs for 0 days Quantity: 80 {Tablet} Refills: 3 Ordered:12-Dec-2017 Arnold Navarro DO, DO, KathleenFearon DO, Kathleen Start : 12-Dec-2017 Active Valtrex 1 GM Oral Tablet 1 (one) Tablet tid for 7 days Quantity: 21 {Tablet} Refills: 0 Ordered:15-Aug-2018 Arnold Navarro DO, DO, KathleenFearon DO, Kathleen Start : 15-Aug-2018 Active Albuterol Sulfate (2.5 MG/3ML) 0.083% Inhalation [...] Daily for 5 days Refills: 0 Ordered:12-Apr-2010 Fast DO, Maggie A Start : 12-Apr-2010 End : 17-Apr-2010 Inactive DETROL LA, 2MG (Oral Capsule Extended Release 24 Hour) 1 (one) Capsule ER 24HR Daily for 0 days Refills: 0 Ordered:17-Mar-2008 Thelma Khan LPN Start : 17-Mar-2008 End : 20-Oct-2008 Inactive Diprolene AF 0.05 % External Cream apply to affected area Cream bid - use sparingly for 0 days Quantity: 15 {Gram} Refills: 0 Ordered:09-Apr-2016 Melanie KEBEDE TalisylviaSakinarm , TaliGonzalez Doris Start : 22-Mar-2016 End : 09-Apr-2016 Inactive [...] Start : 26-Sep-2016 End : 12-Dec-2017 Inactive [place] 5-325 MG Oral Tablet 1 q 4hrs [...] : 07-Sep-2014 End : 13-Sep-2014 Discontinued ERGOCALCIFEROL, 22497RNQX (Oral Capsule) 1 (one) Capsule q week for 0 days Quantity: 12 {Capsule} Refills: 3 Ordered:19-Aug-2015 Maggie Tracey DO Start [...] Quantity: 120 {Tablet} Refills: 3 Ordered:05-Mar-2011 Alexy KEBEDE Maggie A Start : 05-Mar-2011 End : [...] Quantity: 10 {Tablet} Refills: 0 Ordered:05-Jan-2013 Alexy KEBEDECamelianathaniel Armstrong Start : 05-Jan-2013 End : 05-Jan-2013 Discontinued LIPITOR, 40MG (Oral Tablet) 1 Tablet QD for 0 days Refills: 0 Ordered:10-Jul-2007 Mai Montero Start : 10-Jul-2007 End : 10-Jul-2007 Discontinued LIPITOR, 40MG (Oral Tablet) 1 (one) Tablet q 3 days q hs for 90 days Quantity: 90 {Tablet} Refills: 3 Ordered:29-Sep-2012 Alexy KEBEDECameliaa A Start : 29-Sep-2012 End : 29-Sep-2012 Discontinued L-METHYLFOLATE CALCIUM, 15MG (Oral Tablet) 1 (one) Tablet qd for 30 days Quantity: 30 {Tablet} Refills: 3 Ordered:19-Aug-2015 Raiza Ortiz Start : 06-Jan-2014 End : 19-Aug-2015 Discontinued MELOXICAM, 7.5MG (Oral Tablet) 1 (one) Tablet daily for 30 days Quantity: 30 {Tablet} Refills: 3 Ordered:09-Sep-2009 Alexy KEBEDE Maggie A Start : 09-Sep-2009 End : 09-Sep-2009 Discontinued [...] days Quantity: 30 {Tablet} Refills: 3 Ordered:19-Aug-2015 Fast DO, Maggie A [...] days Quantity: 30 {Tablet} Refills: 0 Ordered:23-Jun-2012 Fast DO, Maggie A Start : 23-Jun-2012 End : 23-Jun-2012 Discontinued VITAMIN D (ERGOCALCIFEROL), 31679FRMS (Oral Capsule) 1 Capsule q week for 0 days Quantity: 12 {Capsule} Refills: 2 Ordered:19-Aug-2015 Raiza Ortiz Start : 07-Apr-2013 End : 19-Aug-2015 Discontinued VITAMIN D, 64070SNLS (Oral Capsule) 1 (one) Capsule q week [...] - PT Result: Comments: See Note; NOTES: [facility] [address] [place] [address]. [address] [place] [address] / REHABILITATION SERVICES INITI AL EVALUATION MR#: [id number] Acct: [id number] Name: MARICRUZ GRIGSBY Rep #: [id number] : 1940 78 From: Karen Flores DPT [...] and feel tight. She fell down the [place] steps about a year ago and that [...] to be FAXED BACK to us at [phone] for Medicare purposes. For Medicare only, by signing this I certify the plan of care. Please let me know if there are questions or concerns regarding this plan of care. Physician Signature: Date: <Electronically signed by Karen Flores DPT> 08/13/18 1550 CC: Doris Navarro DO ELR Signed 13-Aug-2018 Inital Evaluation (1) - PT Result: Comments: See Note; NOTES: [facility] [address]. [address] [place] [address] / REHABILITATION SERVICES INITI AL EVALUATION MR#: [id number] Acct: [id number] Name: MARICRUZ GRIGSBY Rep #: [id number] : 1940 78 From: Karen Flores DPT [...] and feel tight. She fell down the [place] steps about a year ago and that [...] to be FAXED BACK to us at [phone] for Medicare purposes. For Medicare only, by signing this I certify the plan of care. Please let me know if there are questions or concerns regarding this plan of care. Physician Signature: Date: <Electronically signed by Karen Flores DPT> 08/13/18 1548 CC: Doris Navarro DO ELR Signed 31-Jul-2018 Inital Evaluation (1) - PT Result: Comments: See Note; NOTES: [facility] [address]. [address] [place] [address] / REHABILITATION SERVICES INITI AL EVALUATION MR#: [id number] Acct: [id number] Name: MARICRUZ GRIGSBY Rep #: [id number] : 1940 78 From: Eugenio Correa DPT [...] to evaluate your patient. For Medicare and [facility] plans, please review the plan of care and approve it. It will need to be FAXED BACK to us at [phone] for Medicare purposes. For Medicare only, by signing this I certify the plan of care . Please let me know if there are questions or concerns regarding this plan of care. Physician Signature: Date: <Electronically s igned by Eugenio Correa DPT> 07/31/18 1457 CC: Doris Navarro DO SAMEER Signed 16-Jul-2018 Discharge Instruction Result: Comments: See Note; NOTES: [facility] Medical Records Department [address] [place] [address] Discharge Instruction 07/16/18 1405 MR#: [id number] Acct: [id number] Name: MARCIRUZ GRIGSBY Rep #: [id number] : 1940 78 From: Johnnie Baez MD [...] Primary Care Pro vider. Call [facility] ([phone]) or report to the closest Emergency Room. Call 911 if necessary. 07/16/18 1647 <Electronically signed by Johnnie Baez MD> Date Johnnie Baez MD Cosigner Signature (If Indicated): Date CC: Doris Navarro DO 16-Jul-2018 Emergency Department Summary Result: Comments: See Note; NOTES: [facility] Medical Records Department [address] [place] [address] Emergency Department Summary 07/16/18 1249 MR#: [id number] Acct: [id number] Name: MARICRUZ GRIGSBY Rep #: [id number] : 1940 78 From: Johnnie Baez MD PCP: Doris Navarro DO Status: DEP ER - ER Visit Summary Date of Service: 07/16/18 Chief Complaint: Nausea, vomit ing and diarrhea. History of Present Illness: The patient is a 78 F past medical history of prior stroke, hypertension siy-wdnfozr-crraetsne diabetes. Patient states last 3-4 days she [...] secondary to viral gastroenteritis History of no q-oysvthd-ubrsrhizv diabetes. This note was generated with Mumart dictation software. It may contain incorrect words, spelling, and punctuation that were not noted in review of the chart prior to [facility] ED Disposition - Plan for ED Patient: Chief Complaint: Nausea/Vomiting/Diarrhea Referrals: Doris Navarro, DO [Primary Care Provider] - What to do if you have Problems For any increased christy n, shortness of breath, bleeding, nausea or vomiting, chest pain, or any unexpected problems, contact your Primary Care Provider. Call [facility] ([phone]) or report to the closest Emergency Room. Call 911 if necessary. 07/16/18 6047 <Electronically signed by Johnnie Baez MD> Date Johnnie Kowalski Signature ( If Indicated): Date CC: Doris Navarro DO 24-Jun-2018 L/S Spine Min 4 Views Result: Comments: See Note; NOTES: [facility] Imaging Services [address] [place] [address] L/S Spine Min 4 Views MR#: [id number] Acct: [id number] Name: MARICRUZ GRIGSBY Rep # : [id number] : 1940 F 78 From: Mack Soni MD PCP: Doris Navarro DO Status: REG CLI Study: L/S Spine Min 4 Views Date of Exam: 06/24/18 Exam# [id number] Ordering Dr: Doris Navarro DO SANDI DY: [...] Service support , CC: Doris Navarro DO Purchasing Administrator: Signed 14-May-2018 Emergency Department Summary Result: Comments: See Note; NOTES: [facility] Medical Records Department [address] [place] [address] Emergency Department Summary 05/14/18 0908 MR#: [id number] Acct: [id number] Name: MARICRUZ GRIGSBY Rep #: [id number] : 1940 78 From: Zee Denise MD [...] family doctors she is re ferred to [facility] for the shoulder injury and she will return for change in symptoms and she is comfortable with this plan Treatment Plan: [] Disposition: [] Stable home Impression: [] Fall left rib fracture, left shoulder injury This note was generated with Mumart dictation software. It may contain incorrect words, [...] your Primary Care Provider. Call [facility] ([phone]) or report to the closest Emergency Room. Call 911 if necessary. 05/14/18 1530 <Electronically signed by Zee Denise MD> Date Zee Denise MD Cosigner Signatur e (If Indicated): Date CC: Doris Navarro DO 14-May-2018 Discharge Instruction Result: Comments: See Note; NOTES: [facility] Medical Records Department [address] [place] [address] Discharge Instruction 05/14/18 1133 MR#: [id number] Acct: [id number] Name: MARICRUZ GRIGSBY Rep #: [id number] : 1940 78 From: Zee Denise MD PCP: Doris Navarro DO Status: REG ER ED Disposition - Plan for ED Patient: Chief Complaint: Fall Instructions: ED M echanical Fall, ED Fx Rib, ED Sprain Shoulder, ED Sling Prescriptions: Hydrocodone Bitart/Apap 5-325 [[place] 5MG-325MG] 1 tab PO Q6H PRN PRN 3 Days #10 tab PRN Reason: Pain Referrals: Doris Navarro, [Primary Care Provider] - What to do if you have Problems For any increased pain, shortness of breath, bleeding, nausea or vomiting, chest pain, or any unexpected problems, contact your Primary Car e Provider. Call [facility] ([phone]) or report to the closest Emergency Room. Call 911 if necessary. 05/14/18 1134 <Electronically signed by Zee Denise MD> Date ___ Zee Denise MD Cosigner Signature (If Indicated): Date CC: Doris Navarro DO 14-May-2018 Chest PA and Lateral Result: Comments: See Note; NOTES: [facility] Imaging Services [address] [place] [address] Chest PA and Lateral MR#: [id number] Acct: [id number] Name: CLIFFORD CRUZMARICRUZ L Rep #: [id number] : 1940 F 78 From: Teo Wayne MD PCP: Doris Navarro DO Status: REG ER Study: Chest PA and Lateral Date of Exam: 05/14/18 Exam# [id number] Ordering Dr: Zee Denise MD STUDY: X-RAY [...] Teo Wayne MD at 10:11 EDT Tel [phone], NeuroDerm support , CC: MD Sonam Denise; Doris Navarro DO Purchasing Administrator: Signed 14-May-2018 Elbow min 3 Views Result: Comments: See Note; NOTES: [facility] Imaging Services [address] [place] [address] Elbow min 3 Views MR#: [id number] Acct: [id number] Name: CLIFFORD CRUZMARICRUZ Stuart Rep #: : 1940 F 78 From: Teo Wayne MD PCP: Doris Navarro DO Status: REG ER Study: Elbow min 3 Views Date of Exam: 05/14/18 Exam# [id number] Ordering Dr: Zee Denise MD STUD Y: [...] Teo Wayne MD at 10:12 EDT Tel [phone], Service support , CC: MD Sonam Denise; Doris Navarro DO Purchasing Administrator: Signed 14-May-2018 Shoulder min 2 Views Result: Comments: See Note; NOTES: [facility] Imaging Services [address] [place] [address] Shoulder min 2 Views MR#: [id number] Acct: [id number] Name: MARICRUZ GRIGSBY Rep #: [id number] : 1940 F 78 From: Teo Wayne MD PCP: Doris Navarro DO Status: [facility] Study: Shoulder min 2 Views Date of Exam: 05/14/18 Exam# [id number] Ordering Dr: Zee Denise MD STUDY: X-RAY [...] Wayne MD at 11:02 EDT Tel [phone], Service support , CC: MD Sonam Denise; Doris Navarro DO Purchasing Administrator: Signed 06-Feb-2018 History and Physical Exam Result: Comments: See Note; NOTES: [facility] Medical Records Department [address] [place] [address] History and Physical 02/06/182050 MR#: [id number] Acct: [id number] Name: MARICRUZ GRIGSBY Rep #: [id number] : 1940 77 From: María Barnes MD [...] cholecystectomy Psychiatric History: No pertinent psych hx 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 This note was generated with IntelliWheels software. It may contain incorrect words, spelling, and punctuation that were not noted in checking the note before signing. Code Visit OBSV Deepika RIVERA M: 51857 Initial observation care L3 2108 <Electronically signed by María Barnes MD> Date María Barnes MD Cosigner Signature: Date (if applicable) CC: María Barnes; Doris Navarro DO Signed 06-Feb-2018 Brain/Head without Contrast Result: Comments: See Note; NOTES: [facility] Imaging Services [address] [place] [address] Brain/Head without Contrast MR#: [id number] Acct: [id number] Name: MARICRUZ GRIGSBY Rep #: [id number] : 1940 F 77 From: Renata Lee MD PCP: Doris Navarro DO Status: [facility] ER Study: Brain/Head without Contrast Date of Exam: 02/06/18 Exam# [id number] Ordering Dr: Cameron Marte MD STUDY: CT [...] , Service support , CC: Doris Marte Purchasing Administrator: Signed 06-Feb-2018 Chest 1 View Result: Comments: See Note; NOTES: [facility] Imaging Services [address] [place] [address] Chest 1 View MR#: [id number] Acct: [id number] Name: MARICRUZ GRIGSBY Rep #: [id number] : 1940 F 77 From: Renata Lee MD PCP: Melanie DO,Doris Status: REG ER Study: Chest 1 View Date of Exam: 02/06/18 Exam# [id number] Ordering Dr: Jered Marte MD STUDY: X-RAY [...] 18:58 EDT , Service support , CC: Doirs Navarro DO; Jered Marte Purchasing Administrator: Signed 25-Nov-2017 Liver Result: Comments: See Note; NOTES: [facility] Imaging Services [address] [place] [address] Liver MR#: [id number] Acct: [id number] Name: MARICRUZ GRIGSBY Rep #: [id number] : 1940 F 77 From: Mack Hand MD PCP: Doris Navarro DO Status: REG CLI Study: Liver Date of Exam: 11/25/17 Exam# [id number] Ordering Dr: Doris Navarro DO STUDY: ABDOMINAL [...] MD at 12:34 EDT , Service support [phone], CC: Doris Navarro DO Purchasing Administrator: Signed 29-Oct-2017 Hip 2-3 Views with Pelvis Result: Comments: See Note; NOTES: [facility] Imaging Services [address] [place] [address] Hip 2-3 Views with Pelvis MR#: [id number] Acct: [id number] Name: MARICRUZ GRIGSBY #: [id number] : 1940 F 77 From: Benji Finch PCP: Doris Navarro DO Status: REG CLI Study: Hip 2-3 Views with Pelvis Date of Exam: 10/29/17 Exam# [id number] Ordering Dr: Thelma Sofia STUDY: X-RAY - [...] , CC: QUINN Sofia; Doris Navarro DO Purchasing Administrator: Signed 27-Aug-2017 12 Lead Electrocardiogram Result: Comments: See Note; NOTES: [facility] Cardiovascular Services [address] [place] [address] 12 Lead EKG 08/24/17 1719 MR#: [id number] Acct: [id number] Name: PORTIA GRIGSBY Stuart Rep #: [id number] : 1940 77 From: Maurilio Meraz MD [...] C onfirmed by SOLEDAD STREETER, MAURILIO ([id number]), news videotape editor STACY CARTER (56) on 08/27/2017 10:37:34 AM Referred By: EITAN Confirmed By:MAURILIO MERAZ MD 08/27/17 1037 Date Maurilio Meraz MD CC: Doris Navarro DO Signed 25-Aug-2017 Emergency Department Summary Result: Comments: See Note; NOTES: [facility] Medical Records Department [address] [place] [address] Emergency Department Summary 08/24/17 1709 MR#: [id number] Acct: [id number] Name: MARICRUZ GRIGSBY Rep #: [id number] : 1940 77 From: Zee Denise MD [...] be altered This note was generated with TagCash dictation software. It may contain incorrect words, [...] your Primary Care Provider. Call [facility] ([phone]) or report to the closest Emergency Room. Call 911 if necessary. 08/25/17 0001 <Electronically sig radha by Zee Denise MD> Date Zee Denise MD Cosigner Signature (If Indicated): Date CC: Doris Navarro DO 24-Aug-2017 Discharge Instruction Result: Comments: See Note; NOTES: [facility] Medical Records Department [address] [place] [address] Discharge Instruction 08/24/171819 MR#: [id number] Acct: [id number] Name: MARICRUZ GRIGSBY Stuart Rep #: [id number] : 1940 77 From: Zee Denise MD [...] your Primary Care Provider. Call [facility] ([phone]) or report to the closest [facility] Room. Call 911 if necessary. 08/24/171820 <Electronically signed by Zee Denise MD> Date Zee Denise MD Cosign er Signature (If Indicated): Date CC: Doris Navarro DO 24-Aug-2017 Chest PA and Lateral Result: Comments: See Note; NOTES: [facility] Imaging Services [address] [facility] [place] [address] Chest PA and Lateral MR#: [id number] Acct: [id number] Name: MARICRUZ GRIGSBY Rep #: [id number] : 1940 F 77 From: Stacy Tapia MD PCP: Doris Navarro DO Status: REG ER Study: Chest PA and Lateral Date of Exam: 08/24/17 Exam# [id number] Ordering Dr: Zee Denise MD XR Chest [...] CC: MD Sonam Denise; Doris Navarro DO Purchasing Administrator: Signed 07-Aug-2017 Chest PA and Lateral Result: Comments: See Note; NOTES: [facility] Imaging Services [address] [place] [address] Chest PA and Lateral MR#: [id number] Acct: [id number] Name: MARICRUZ GRIGSBY Rep #: [id number] : 1940 F 77 From: Teo Wayne MD PCP: Doris Navarro DO Status: REG CLI Study: Chest PA and Lateral Date of Exam: 08/07/17 Exam# [id number] Ordering Dr: Doris Navarro DO STUDY: X-RAY [...] Logan i, MD at 13:49 EST Tel [phone], Service support , CC: Doris Navarro DO Purchasing Administrator: Signed 20-Nov-2016 Operative Report Result: Comments: See Note; NOTES: [facility] Medical Records Department [address] [place] [address] Operative Report 11/14/16 0736 MR#: [id number] Acct: [id number] Name: CLIFFORD FABY THORNEMARICRUZ Stuart Rep #: [id number] : 1940 76 From: Liza Duron DO PCP: Doris Navarro DO Status: [facility] [place] [facility] Report of Operation Date of Procedure: 11/14/16 Pre-Operative Diagnosi s: Right third and fourth trigger fingers Post-Operative Diagnosis: Name Surgery/Procedure Performed:: Right hand third and fourth A1 shannan release Type of Anesthesia:: Block,[place] Anesthesiologist: Fox Michaels Estimated Blood Loss (mL): [...] right arm was prepped and draped after [place] block was initiated. We markdeepika posey out her incisions for our third [...] Dragon disclaimer This note was generated with Mumart dictation software. It may contain incorrect words, spellin g, and punctuation that were not noted in checking the note before signing. 11/20/16 1231 <Electronically signed by Liza Duron DO> Date Liza Duron DO CC: Liza Duron DO; Doris Navarro Signed 16-Nov-2016 Oncology Progress Note Result: Comments: See Note; NOTES: [facility] Medical Records Department [address] [place] [address] Oncology Progress Note MR#: [id number] Acct: [id number] Name: PORTIA GRIGSBY Rep #: [id number] : 1940 76 From: Sal Urrutia MD [...] level. Sal Urrutia MD T: NTS JOB: [id number] 11/16/16 0850 <Electronically signed by Sal Urrutia MD> Date Sal Urrutia MD Cosigner Signature (If Indicated): Date CC: Date Dictated: 11/08/161304 Date Transcribed: 11/08/161304 Purchasing Administrator: Signed 14-Nov-2016 Discharge Instruction Result: Comments: See Note; NOTES: [facility] Medical Records Department [address] [facility] [place] [address] Instructions for Home/Discharge Instructions 11/14/16 0735 MR#: [id number] Acct: [id number] Name: MARICRUZ GRIGSBY Rep #: [id number] : 1940 76 From: Liza Duron DO [...] mg PO DAILY 11/09/16 Hydrocodone Bitart/Apap 5-325 [[place] 5MG- 325MG] 1 - 2 tablet PO Q6H PRN PRN #20 tablet 11/14/16 The following prescriptions were given: Hydrocodone Bitart/Apap 5- 325 [[place] 5MG-325MG] 1 - 2 tablet PO Q6H PRN PRN #20 tablet PRN Reason: Pain Primary Care Physician: Doris Navarro DO [Primary Care Provider] - Please Follow Up With: Liza Duron - [phone] 11/14/16 1836 <Electronically signed by Liza Duron DO> Date Liza Duron DO CC: Doris Navarro DO 20-Jul-2016 Chest PA and Lateral Result: Comments: See Note; NOTES: [facility] Imaging Services [address] [place] [address] Verdana 4d Chest PA and Lateral MR#: [id number] Acct: [id number] Name: JAQUAN GRIGSBY Rep #: [id number] : 1940 F 76 From: Mack Hand MD PCP: Doris Navarro DO Status: REG CLI Study: Chest PA and Lateral Date of Exam: 07/20/16 Exam# [id number] Ordering Dr: Doris Navarro DO STUDY: X-RAY [...] at 12:24 EST Tel , Service support [phone], CC: Doris Navarro DO Purchasing Administrator: Signed 26-Jan-2016 Echocardiogram Complete Result: Comments: See Note; NOTES: [facility] Cardiovascular Services [address] [place] [address] Echo Complete 01/26/16 1008 MR#: [id number] Acct: [id number] Name: MARICRUZ PARMAR Rep #: [id number] : 1940 75 From: Mack Dickerson MD Attending Dr: Maggie Tracey DO Status: REG CLI Ordering Dr: Maggie Tracey DO Date: 01/26/16 Location: [facility] Sex: F C Admsouleymane ed: Reason For [...] 1612 Date ___ Mack Dickerson MD CC: Maggienathaniel Tracey DO Date Dictated: 01/26/16 1008 Date Transcribed: 01/26/16 1612 Purchasing Administrator: Signed 05-Dec-2015 Chest 1 View (Portable) Result: Comments: See Note; NOTES: [facility] Imaging Services [address] [place] [address] Verdana 4d Chest 1 View (Portable) MR#: [id number] Acct: [id number] Name: MOSQUEDA KATHLEENCORRY MARICRUZ CRUZ Rep #: [id number] : 1940 F 75 From: Yari Garcia MD PCP: Maggie Tracey DO Status: PRE ER Study: Chest 1 View (Portable) Date of Exam: 12/05/15 Exam# [id number] Ordering Dr: Johnnie Baez MD STUDY: X-RAY [...] at 16:44 EDT Tel , Service support [phone], RAD/Chest 1 V iew (Portable) IMPRESSION: Underexpansion of the lungs. Mild to moderate cardiomegaly. Electronically Signed: Yari Garcia MD at 16:44 EDT Tel , Service support [phone], CC: Maggie Tracey DO; Johnnie Baez MD Purchasing Administrator: Signed 05-Dec-2015 Spirometry (43294) Comments: good effort and curvenormal Result: 05-Dec-2015 EKG (20145) Comments: ekg showed normal sinus rhythym, normal axis, no acute st/t wave changes Result: [MEASUREMENTS ANALYSIS] Date of Test: 12/05/2015 14:27:41; Heart Rate: 93; IL Interval: 202; QRS: 96; QT Interval: 352; Corrected QT Interval (QTc): 409; P Wave [place]: 48; QRS Wave [place]: -26; T Wave [place] : 55; Blood Pressure: 134/64 [ECG DIAGNOSTIC STATEMENTS] Date of Test: 12/05/2015 14:27:41; Summary: Sinus Rhythm WITHIN NORMAL LIMITS 21-Sep-2015 12 Lead Electrocardiogram Result: Comments: See Note; NOTES: [facility] Cardiovascular Services [address] [place] [address] 12 Lead EKG 09/19/15 0908 MR#: [id number] Acct: [id number] Name: MARICRUZ VIGIL Rep #: [id number] : 1940 75 From: Maurilio Meraz MD Attending Dr: Status: DEP ER Ordering Dr: Johnnie Beaz MD Date: 09/19/15 Location: ED Sex: F [...] wave progression Confirmed by SOLEDAD STREETER, MAURILIO ([id number]), news videotape editor STACY CARTER (56) on 09/21/2015 11:27:40 AM Referred By: JE Confirmed By:MAURILIO MERAZ MD 1127 Date Maurilio Meraz MD CC: Maggie Tracey DO Date Dictated: 09/19/15907 Date Transcribed: 09/19/15907 Purchasing Administrator: Signed 19-Sep-2015 Discharge Instruction Result: Comments: See Note; NOTES: [facility] Medical Records Department [address] [place] [address] Discharge Instruction 09/19/15 1020 MR#: [id number] Acct: [id number] Name: CLIFFORD CRUZMARICRUZ Stuart Rep #: [id number] : 1940 75 From: Johnnie Baez MD [...] chest pain, or any unexpected problems, contact [facility] doctor. Call [facility] ([phone]) or report to the closest Emergency Room. Call 911 if necessary. 09/19/15 0373 <Electronically signed by Johnnie Baez MD> Date __ Johnnie Baez MD Cosigner Signature (If Indicated): Date CC: Maggie Alexy KEBEDE 19-Sep-2015 Emergency Department Summary Result: Comments: See Note; NOTES: [facility] Medical Records Department [address] [place] [address] Emergency Department Summary MR#: [id number] Acct: [id number] Name: MARICRUZ GRIGSBY Rep #: [id number] : 1940 75 From: Johnnie Baez MD [...] C: Maggie Tracey DO T: NTS JOB: [id number] 09/19/15 1755 <Electronically signed by Johnnie Baez MD& amp;#62; Date Johnnie Baez MD Cosigner Signature (If Indicated): Date CC: Maggie Tracey DO Date Dictated: 09/19/15 1019 Date Transcribed: 09/19/15 1019 Purchasing Administrator: Signed 07-Sep-2015 Chest PA and Lateral Result: Comments: See Note; NOTES: [facility] Imaging Services [address] [place] [address] Verdana 4d Chest PA and Lateral MR#: [id number] Acct: [id number] Name: EAN MARICRUZ JUÁREZ Rep #: [id number] : 1940 F 75 From: Kali Raymundo MD PCP: Maggie Tracey DO Status: REG CLI Study: Chest PA and Lateral Date of Exam: 09/07/15 Exam# [id number] Ordering Dr: Maggie Irwin DO STUDY: X-RAY [...] FACR at 11:41 EST , Service support [phone], RAD/Chest PA and Lateral IMPRESSION: No significant changes. Stable moderate cardiomegaly. Bilateral interstitial changes more prominent on the right. Savannahi marcus Signed: Kali Raymundo MD, FACR at 11:41 EST , Service support [phone], CC: Maggie Tracey DO Purchasing Administrator: Signed 07-Sep-2015 Spirometry (35400) Comments: good effort and curve normal Result: 24-Mar-2015 PT Discharge Summary Result: Comments: See Note; NOTES: [facility] Physical Therapy [facility] [address] [place] [address]. [address] [place] [address] Fax REHABILITATION SERVICES DISCHARGE SUMMARY MR#: [id number] Acct: [id number] Name: CLIFFORD CRUZMARICRUZ Stuart Rep #: [id number] : 1940 75 From: Yuni Clark Referring [...] discharge. Yuni Clark, PT T: NTS JOB: [id number] <Electronically signed by Yuni Clark > 03/24/15 1227 CC: Maggie Tracey DO Signed 17-Feb-2015 Inital Evaluation - PT Result: Comments: See Note; NOTES: [facility] Physical Therapy [facility] [address] [place] [address]. [address] [place] [phone] Fax REHABILITATION SERVICES INITIAL EVALUATION MR#: [id number] Acct: [id number] Name: CLIFFORD CRUZMARICRUZ Stuart Rep #: [id number] : 1940 75 From: Yuni Clark Referring DrDonnie: Maggie Tracey DO Status: REG RCR Insurance : MEDICARE PART A B Eval Date: [facility] DATE OF SERVICE: 02/16/2015 SUBJECTIVE: [...] care. Yuni Clark, PT T: CHERI JOB: [id number] <Electronically signed by Yuni Clark > 02/17/15 1011 CC: Signed For Medicare only, by seng yao this I certify the plan of care. Physicians Signature Date 08-Feb-2015 L/S Spine Min 4 Views Result: Comments: See Note; NOTES: [facility] Imaging Services [address] [place] [address] Radiology Report MR#: [id number] Acct: [id number] Name: MARICRUZ GRIGSBY Rep #: [id number] : 1940 F 74 From: Teo Wayne MD PCP: Maggie Tracey DO Status: REG CLI Study: L/S Spine Min 4 Views Date of Exam: 02/08/15 Exam# [id number] Ordering Dr: Maggie Tracey DO STUDY: X-RAY [...] Wayne MD a t 12:30 EDT Tel [phone], Service support [phone], RAD/L/S Spine Min 4 Views IMPRESSION: Degenerative changes of the spine, as detailed above. Electro nically Signed: Teo Wayne MD at 12:30 EDT Tel [phone], Service support [phone], CC: Maggie Tracey DO Purchasing Administrator: Signed 15-Nov-2014 Thyroid Result: Comments: See Note; NOTES: [facility] Imaging Services [address] [place] [address] Ultrasound Report MR#: [id number] Acct: [id number] Name: MARICRUZ GRIGSBY Rep #: [id number] : 1940 F 74 From: Julián Trivedi DO PCP: Maggie Tracey DO Status: REG CLI Study: Thyroid Date of Exam: 11/15/14 Exam# [id number] Ordering Dr: Maggie Tracey DO STUDY: THYROID [...] Julián Trivedi DO at 16:51 EDT Tel [phone], Service support [phone], Fax CC: Maggie Tracey DO Purchasing Administrator: Signed 13-Sep-2014 Chest PA and Lateral Result: Comments: See Note; NOTES: [facility] Imaging Services [address] [place] [address] Radiology Report MR#: [id number] Acct: [id number] Name: MARICRUZ GRIGSBY Rep #: [id number] : 1940 F 74 From: Donato Abdi MD PCP: Maggie Tracey DO Status: REG CLI Study: Chest PA and Lateral Date of Exam: 09/13/14 Exam# [id number] Ordering Dr: Maggie Tracey DO STUDY: X [...] at 12:01 EST Tel , Service support [phone], CC: Maggie Tracey DO Purchasing Administrator: Signed 15-Jul-2014 Chest PA and Lateral Result: Comments: See Note; NOTES: [facility] Imaging Services [address] [place] [address] Radiology Report MR#: [id number] Acct: [id number] Name: MARICRUZ GRIGSBY Rep #: [id number] : 1940 F 74 From: Teo Wayne MD PCP: Maggie Tracey DO Status: REG CLI Study: Chest PA and Lateral Date of Exam: 07/15/14 Exam# [id number] Ordering Dr: Maggie Tracey DO SANDI DY: [...] Teo Wayne MD at 9:42 EST Tel [phone], Service support [phone], CC: Maggie Tracey DO Purchasing Administrator: Signed 10-May-2014 Lenny Hein [employer] CAD Result: Comments: See Note; NOTES: [facility] Imaging Services [address] [place] [address] Breast Imaging Report MR#: [id number] Acct: [id number] Name: MARICRUZ GRIGSBY ep #: [id number] : 1940 F 74 From: Gene Phillips PCP: Maggie Tracey DO Status: REG CLI Exam# [id number] Ordering Dr: Maggie Tracey DO MAMMOGRAPHY - [...] these results will be sent to the [facility] ient by the facility within 30 days. Approximately 10% of breast cancers are not detected by mammography. A normal mammogram should not delay biopsy of a clinically suspicious abnormality. Electro nically Signed: Jessenia Phillips MD at 19:48 EDT Tel , Service support [phone], CC: Maggie Tracey DO Purchasing Administrator: Signed 10-Sep-2013 Dexa Bone Density Study (HP) Result: Comments: See Note; NOTES: [facility] Imaging Services [address] [place] [address] Bone Density Report MR#: [id number] Acct: [id number] Name: MARICRUZ GRIGSBY Rep #: [id number] : 1940 F 73 From: Teo Wayne MD PCP: Maggie Tracey DO Status: REG CLI Study: Dexa Bone Density Study (HP) Date of Exam: 09/10/13 Exam# [id number] Ordering Dr: Maggie Tracey DO STUDY: DUAL [...] M.D. at 11:04 EST , Service support [phone], CC: Maggie Tracey DO Purchasing Administrator: Signed Immunization Name Dates Details Influenza (3 years and up) on: 04-Jun-2007 Comments: Lot #: [id number] date: 01/03Amount given: 0.5 MLRoute: IMSite given: Left deltoidGiven by: Nathaniel Beal LPN Influenza (3 years and up) on: 12-May-2009 Comments: Lot #[id number]-left deltoidgiven by:CDH Family History Unknown Family Member [...] smoker Vital Signs Date Test Result Details 59-Xvi-787074:51 Pulse 87 /min Comments: Pattern: Regular Respiration Rate 18 /min Comments: Pattern: Unlabored O2 SAT 93 % Comments: Room air BP Systolic 127 mm[Hg] Comments: Patient Position: Sitting; Cuff Location: Left Arm; Cuff Size: Thigh BP Diastolic 78 mm[Hg] Comments: Patient Position: Sitting; Cuff Location: Left Arm; Cuff Size: Thigh Weight 208.5 lb Height 65 in Body Mass Index Calculated 34.7 kg/m2 Body Surface Area Calculated 2.01 m2 4-Fwd-156085:37 Pulse 110 /min Comments: Pattern: Regular Respiration [...] kg/m2 Body Surface Area Calculated 2.06 m2 85-Ecr-671474:39 Pulse 80 /min Comments: Pattern: Regular Respiration [...] kg/m2 Body Surface Area Calculated 2.06 m2 82-Dgc-537232:29 Comments: Dr. Reyes and had a glauocma [...] kg/m2 Body Surface Area Calculated 2.05 m2 58-Qri-335115:37 Pulse 74 /min Comments: Pattern: Regular Respiration [...] kg/m2 Body Surface Area Calculated 2.03 m2 8-Nog-674015:12 Weight 213 lb Height 65 in Body Mass Index Calculated 35.44 kg/m2 Body Surface Area Calculated 2.03 m2 1-Aga-079520:51 Comments: re check 142/80 Pulse 71 /min [...] Arm; Cuff Size: Large Height 64 in 7-Ygb-011343:56 Comments: bp recheck- administered 81mg asa orally at this time also-[facility] BP Systolic 156 mm[Hg] Comments: Patient [...] 0.00 cm Results Date Description Value Details 99-Pox-257366:55 Basic Metabolic Profile (BMP) Comments: [facility] [address] [place], [address] GAP 13 (Normal) Range: 5-15 CO2 25.0 [...] A.D.A. criteria.Please note revised GLUCOSE reference range jbqqjjvpy43/02/2018. 17-Iuo-094868:55 CBC W/Diff, Automated Comments: [facility] [address] [place], [place], [address] Absolute Lymph 0.98 {X10_3/ul} (Normal) Range: 0.83-4.51 [...] 4.2-5.4 WBC 9.1 K/mm3 (Normal) Range: 4.4-11.0 20-Sqs-401524:50 Rapid Strep Test, Office (88294) Rapid Strep Test, Office Negative (Normal) 0-Zij-589744:58 TSH (58077) Comments: PATIENT NOT FASTINGPERFORMED BY: [facility] Ayqcdu5214 [facility] [id number] TSH 5.590 {uIU/mL} (Abnormal) Range: 0.450-4.500 :58 T4, FREE (THYROXINE) (36325) Comments: PATIENT NOT FASTINGPERFORMED BY: [facility] Wdatlw8314 [facility] [id number] T4,Free(Direct) 1.81 ng/dL (Abnormal) Range: 0.82-1.77 0-Tws-516805:58 T3, FREE (TRIDOTHYRONINE) (83734) Comments: PATIENT NOT FASTINGPERFORMED BY: [facility] [id number] Triiodothyronine (T3), Free 2.1 pg/mL (Normal) Range: [...] Muscle ABS Comments: Comments: ANTI-LIVER/KIDNEY MICRO AB [id number] [facility] (refer to report for specific site)refer [...] number MELI-DIRECT Negative (Normal) Comments: Performed at: [facility] [id number] Director: Constantine Christianson PhD, Phone: [phone] :44 Ceruloplasmin Comments: Comments: ANTI-LIVER/KIDNEY MICRO AB [id number] [facility] (refer to report for specific site)refer to report for address and phone number CERULOPLAS 1560 22.0 mg/dL (Normal) Range: 19.0-39.0 :44 CMV Acute Antibody IgM Comments: Comments: ANTI-LIVER/KIDNEY MICRO AB [id number] [facility] (refer to report for specific site)refer to report for address and phone number CMVIgM AB < 30.0 AU/mL (Normal) Range: 0.0-29.9 Comments: Negative <30.0 Equivocal 30.0 - 34.9 Positive >34.9A positive result is generally indicative of acuteinfection, reactivation or persistent IgM production. :44 Ferritin Comments: Comments: ANTI-LIVER/KIDNEY MICRO AB [id number] SER/[facility] [address] [place], [address] FERRITIN 236 ng/mL (Normal) Range: 8-252 :44 Free T3 Comments: Comments: ANTI-LIVER/KIDNEY MICRO AB [id number] SER/[facility] [address] [place], [address] FREE T3 1.6 pg/mL (Abnormal) Range: 2.18-3.98 :44 GGTP 64 U/L (Abnormal) Comments: Comments: ANTI-LIVER/KIDNEY MICRO AB [id number] SER/[facility] [address] [place], [address] Range: 5-55 :44 Hepatitis Panel Acute Comments: Comments: ANTI-LIVER/KIDNEY MICRO AB [id number] [facility] (refer to report for specific site)refer to report for address and phone number HEP C AB <0.1 {s/co_ratio} (Normal) Range: 0.0-0.9 Comments: Negative: < 0.8 Indeterminate: 0.8 - 0.9 Positive: > 0.9 The CDC recommends that a positive HCV antibody result be followed up with a HCV Nucleic Acid Amplification test (131074). HB CORE [id number] Negative (Normal) HB SURF AG Negative (Normal) HEP A IgM 6734 Negative (Normal) :44 Liver Profile Comments: Comments: ANTI-LIVER/KIDNEY MICRO AB [id number] SER/[facility] [address] [place], [place], [address] D BILI 0.17 mg/dL (Normal) Range: 0.00-0.30 T BILI 0.60 mg/dL (Normal) Range: 0.20-1.00 ALT 48 U/L (Normal) Range: 13-56 ALK P 93 U/L (Normal) Range: 45-117 AST 43 U/L (Abnormal) Range: 15-37 GLOB 3.5 g/dL (Normal) Range: 2.2-4.2 ALB 3.7 g/dL (Normal) Range: 3.2-5.0 T PROT 7.2 g/dL (Normal) Range: 6.4-8.2 :44 Miscellaneous Lab Procedure Comments: Comments: ANTI-LIVER/KIDNEY MICRO AB [id number] SER/RFTest(s) Ordered: ANTI-LIVER/KIDNEY MICROS AB [id number] SER/[facility] [address] [place], [place], [id number] [facility] Comments: TEST RESULT UNITS REF INTERVALLiver- Kidney Microsomal Ab <1.0 Units 0.0 - 20.0 Negative 0.0 - 20.0 LAB (Normal) Equivocal 20.1 - 24.9 Positive >24.9LKM type 1 antibodies are detected in patients withautoimmune hepatitis type 2 and in up to 8% ofpatients wi TEST th chronic HCV infection. TESTING PERFORMED AT [facility]. ORIGINAL REPORT ON FILE IN LAB CONTAINS ADDITIONAL TEST SITE INFORMATION. :44 T4 Free Direct Comments: Comments: ANTI-LIVER/KIDNEY MICRO AB [id number] SER/[facility] [address] [place], [address] T4 FREE DIRECT 1.06 ng/dL (Normal) Range: 0.76-1.46 :44 Thyroid Stim Hormone (TSH) Comments: Comments: ANTI-LIVER/KIDNEY MICRO AB [id number] [facility] [address] [place], [address] TSH 16.40 {uIU/mL} (Abnormal) Range: 0.358-3.74 :44 Transferrin Comments: Comments: ANTI-LIVER/KIDNEY MICRO AB [id number] [facility] (refer to report for specific site)refer to report for address and phone number TRANSFERRN 8130 250 mg/dL (Normal) Range: 200-370 Comments: Performed at: - [facility] [id number] Director: Constantine Christianson PhD, Phone: [phone] 89-Ppf-219906:16 Bedside Glucose Comments: [facility] [address]slh[address] [facility] [place] [address] BEDSIDE GLU 152 mg/dL (Abnormal) Range: 70-110 Comments: MANAGEMENT OF PATIENT CARE PER NURSING PROTOCOL 77-Nhi-708347:45 Basic Metabolic Profile (BMP) Comments: [facility] [address] [facility] [place], [address] GAP 8 (Normal) Range: 5-15 [...] A.D.A. criteria.Please note revised GLUCOSE reference range ukfefvson71/02/2018. 18-Nyi-476309:45 CBC W/Diff, Automated Comments: [facility] [address] [place], [place], [address] Absolute Lymph 1.73 {X10_3/ul} (Normal) Range: 0.83-4.51 [...] Range: 4.4-11.0 :45 Partial Thromboplast Time Comments: [facility] [address] [place], [place], [address] PTT 33.0 s (Normal) Range: 24.1-36.2 21-Ogu-495514:45 Prothrombin Time w/INR Comments: [facility] [address] [place], [address] INR 0.9 (Normal) PROTIME 12.5 s (Normal) Range: 11.7-14.9 90-Ngb-708089:45 Troponin-I Comments: [facility] [address] [place], [address] TROPONIN-I < 0.015 ng/mL Comments: TROPONIN-I EXPECTED [...] <1.0 {Units} Comments: PATIENT NOT FASTINGPERFORMED BY: [employer]6370 [facility] [id number] 2:14 Microsomal Ab (Normal) Range: 0.0-20.0 Comments: Negative 0.0 - 20.0 Equivocal 20.1 - 24.9 Positive >24.9 . LKM type 1 antibodies are detected in patients with autoimmune hepatitis type 2 and in up to 8% of patients with chronic HCV infection. 03-Squ-594613:14 HEPATIC FUNCTION PANEL Comments: PATIENT NOT FASTINGPERFORMED BY: [employer]6370 [facility] [id number] (00887) ALT (SGPT) 49 [iU]/L (Abnormal) Range: 0-32 AST (SGOT) 57 [iU]/L (Abnormal) Range: 0-40 Alkaline Phosphatase 100 [iU]/L (Normal) Range: 39-117 Bilirubin, Direct 0.14 mg/dL (Normal) Range: 0.00-0.40 Bilirubin, Total 0.4 mg/dL (Normal) Range: 0.0-1.2 Albumin 4.1 g/dL (Normal) Range: 3.5-4.8 Protein, Total 6.8 g/dL (Normal) Range: 6.0-8.5 51-Cue-662056:14 HEPATITIS PANEL (82508) Comments: PATIENT NOT FASTINGPERFORMED BY: [facility]6370 [facility] [id number] Hep C Virus Ab <0.1 {s/co_ratio} (Normal) Range: 0.0-0.9 Comments: Negative: < 0.8 Indeterminate: 0.8 - 0.9 Positive: > 0.9 . The CDC recommends that a positive HCV antibody result be followed up with a HCV Nucleic Acid Amplification test (573065). Hep B Core Ab, IgM Negative (Normal) HBsAg Screen Negative (Normal) Hep A Ab, IgM Negative (Normal) 08-Nyp-274739:14 ANTIMITOCHONDRIAL ANTIBODY Comments: PATIENT NOT FASTINGPERFORMED BY: [facility]6370 [facility] [id number] (07388) Mitochondrial (M2) Antibody <20.0 {Units} (Normal) Range: 0.0-20.0 Comments: Negative 0.0 - 20.0 Equivocal 20.1 - 24.9 Positive >24.9 . Mitochondrial (M2) Antibodies are found in 90-96% of patients with primary biliary cirrhosis. 78-Pwr-077130:14 TRANSFERRIN (42822) Comments: PATIENT NOT FASTINGPERFORMED BY: [facility]6370 [facility] [id number] Transferrin 226 mg/dL (Normal) Range: 200-370 47-Dlm-930921:14 GGT (GAMMA GLUTAMYLTRANSFERASE) Comments: PATIENT NOT FASTINGPERFORMED BY: [employer] [facility]6370 [facility] [id number] (32141) GGT 59 [iU]/L (Normal) Range: 0-60 84-Acw-565648:14 FERRITIN (15294) Comments: PATIENT NOT FASTINGPERFORMED BY: [facility]6370 [facility] [id number] Ferritin, Serum 545 ng/mL (Abnormal) Range: 15-150 47-Qbt-201762:14 CMV IGM ANTBDY (28914) Comments: PATIENT NOT FASTINGPERFORMED BY: CORTEZ [employer] Geoenergy ServicesDennis Ville [address]170 [facility] [id number] Cytomegalovirus (CMV) Ab, IgM <30.0 AU/mL (Normal) Range: 0.0-29.9 Comments: Negative <30.0 Equivocal 30.0 - 34.9 Positive >34.9 A positive result is generally indicative of acute infection, reactivation or persistent IgM production. 95-Pys-442442:14 CERULOPLASMIN (61355) Comments: PATIENT NOT FASTINGPERFORMED BY: [employer] [facility]6370 [facility] [id number] Ceruloplasmin 26.3 mg/dL (Normal) Range: 19.0-39.0 04-Cyz-572652:14 ASM (ANTI SMOOTH MUSCLE Comments: PATIENT NOT FASTINGPERFORMED BY: [employer] [id number] ANTIBODY) (61334) Actin (Smooth Muscle) Antibody 5 {Units} (Normal) Range: 0-19 Comments: Negative 0 - 19 Weak positive 20 - 30 Moderate to strong positive >30 . Actin Antibodies are found in 52-85% of patients with autoimmune hepatitis or chronic active hepatitis and in 22% of patients with primary biliary cirrhosis. 09-Svp-288845:14 MELI (ANTINUCLEAR ANTIBODY) Comments: PATIENT NOT FASTINGPERFORMED BY: [employer] [facility] Services[facility]6370 [facility] [id number] (26241) MELI Direct Negative (Normal) 74-Oks-842864:33 HgA1C , Office (47749) HgA1C , Office 7.2 % (Abnormal) Range: 4.6 - 7.1 41-Ksw-074621:38 MELI (ANTINUCLEAR ANTIBODY) Comments: PATIENT NOT FASTINGPERFORMED BY: [employer] [facility] [id number] (55764) MELI Direct Negative (Normal) 51-Gmn-996684:38 VITAMIN B-12 (CYANOCOBALAMIN) Comments: PATIENT NOT FASTINGPERFORMED BY: Lab88 Romero StreetDublin [place] [id number] (97467) Vitamin B12 463 pg/mL (Normal) Range: 232-1245 69-Tid-111655:38 TSH (00445) Comments: PATIENT NOT FASTINGPERFORMED BY: [facility] Hxizdz1847 [facility] [id number] TSH 0.062 {uIU/mL} (Abnormal) Range: 0.450-4.500 68-Rlx-918045:38 SED RATE ERYTHROCYTE (79216) Comments: PATIENT NOT FASTINGPERFORMED BY: [facility] Jpllny6588 [facility] [id number] Sedimentation Rate-Westergren 7 mm/h (Normal) Range: 0-40 83-Dzr-685015:38 METABOLIC PANEL, COMPREHENSIVE Comments: PATIENT NOT FASTINGPERFORMED BY: [facility] Jbdnhg0344 [facility] [id number] (59390) ALT (SGPT) 52 [iU]/L (Abnormal) Range: 0-32 [...] 8-27 Glucose 134 mg/dL (Abnormal) Range: 65-99 43-Czi-451141:38 C-REACTIVE PROTEIN (12010) Comments: PATIENT NOT FASTINGPERFORMED BY: [employer] [facility] ServicesV[facility]6370 [facility] [id number] C-Reactive Protein, Quant 4.8 mg/L (Normal) Range: 0.0-4.9 51-Mze-358437:38 CBC (AUTO) (16519) Comments: PATIENT NOT FASTINGPERFORMED BY: [employer] [id number] Platelets 248 {x10E3/uL} Range: 150-379 (Normal) RDW [...] mg/L (Abnormal) Comments: PATIENT NOT FASTINGPERFORMED BY: BASH GamingThe Valley HospitalVqcfje3578 [facility] [id number] BY: [address] [id number] 2:25 Serum Range: 0.6-2.4 Comments: Siemens Immulite 2000 Immunochemiluminometric assay (ICMA) 4-Pxi-639938:25 Immunoglobulins Comments: PATIENT NOT FASTINGPERFORMED BY: BASH GamingThe Valley HospitalKoqyyt2826 [facility] [id number] BY: [address] [id number] Iga/Ige/Igg/Igm (GAME) (64539) Immunoglobulin E, Total 259 {IU/mL} (Abnormal) Range: 0-100 Immunoglobulin M, Qn, Serum 113 mg/dL (Normal) Range: 26-217 Immunoglobulin A, Qn, Serum 130 mg/dL (Normal) Range: 64-422 Immunoglobulin G, Qn, Serum 837 mg/dL (Normal) Range: 700-1600 0-Iuy-418282:25 LDH (LD) (LACTATE Comments: PATIENT NOT FASTINGPERFORMED BY: LabROBAUTO[address] [id number] BY: [address] [id number] DEHYDROGENASE) (15748) LDH 195 [iU]/L (Normal) Range: 119-226 5-Btq-485401:25 METABOLIC PANEL, Comments: PATIENT NOT FASTINGPERFORMED BY: LabROBAUTO[address] [id number] BY: Lab[address] [id number] COMPREHENSIVE (61283) ALT (SGPT) 47 [iU]/L (Abnormal) Range: 0-32 [...] 8-27 Glucose 139 mg/dL (Abnormal) Range: 65-99 4-Bjh-688947:25 CBC, PLATELETS & AUT DIFF Comments: PATIENT NOT FASTINGPERFORMED BY: CB [facility] Llisvs0977 [facility] [id number] BY: BN [facility] Nlcagnwrjl7038 [facility] [id number] (60000) Immature Grans (Abs) 0.0 {x10E3/uL} (Normal) Range: [...] 3.77-5.28 WBC 7.2 {x10E3/uL} (Normal) Range: 3.4-10.8 28-Drz-438007:28 Microscopic Examination Comments: PATIENT NOT FASTINGPERFORMED BY: [employer] Szjltp6853 [employer] [facility]Kind[facility] [id number] Bacteria None seen (Normal) Mucus Threads Present (Normal) Cast Type Hyaline casts (Normal) Casts Present {/lpf} (Abnormal) Epithelial Cells (non renal) 0-10 {/hpf} (Normal) Range: 0 - 10 RBC 0-2 {/hpf} (Normal) Range: 0 - 2 WBC >30 {/hpf} (Abnormal) Range: 0 - 5 28-Bpu-323351:24 URINE RANI CULTURE-RADHA COL Comments: PATIENT NOT FASTINGPERFORMED BY: [employer]70 [employer] ExperienceKind[facility] [place] [id number] Information: SRC:UC COUNT (63388) Antimicrobial MIHEAD (Normal) Comments: S = Susceptible; I = Intermediate; R = Resistant P = Positive; N = Negative MICS are expressed in micrograms per mL Antibiotic RSLT#1 RSLT#2 RS Susceptibility LT#3 RSLT#4Amoxicillin/Clavulanic Acid SAmpicillin RCefepime SCeftriaxone SCefuroxime SCephalothin SCiprofloxacin SGentamicin SImipenem SNitrofurantoin SPiperacillin RTetracycline STobram ycin STrimethoprim/Sulfa S Result 1 Raoultella Comments: 5,000 Colonies/mL planticola (Abnormal) Urine Final report Culture,Comprehensive (Abnormal) 97-Coz-016299:28 MICROALBUMIN: CREATININE RATIO Comments: PATIENT NOT FASTINGPERFORMED BY: [employer] Ddaobw2557 [facility] [facility] [id number] (53120) AND (90424) Alb/Creat Ratio 215.8 {mg/g_creat} (Abnormal) Range: 0.0-30.0 Albumin, Urine 245.4 ug/mL (Normal) Creatinine, Urine 113.7 mg/dL (Normal) 40-Tpc-672545:28 URINALYSIS, W/ MICRO (05081) Comments: PATIENT NOT FASTINGPERFORMED BY: [employer] Geo[employer] ServicesVeterans Affairs [facility] System6370 [facility] [id number] Microscopic Examination See below: (Normal) Comments: Microscopic was indicated and was performed. Nitrite, Urine Negative (Normal) Urobilinogen,Semi-Qn 0.2 mg/dL (Normal) Range: 0.2-1.0 Bilirubin Negative (Normal) Occult Blood Negative (Normal) Ketones Negative (Normal) Glucose Trace (Abnormal) Protein 1+ (Abnormal) WBC Esterase 1+ (Abnormal) Appearance Clear (Normal) Urine-Color Yellow (Normal) pH 5.5 (Normal) Range: 5.0-7.5 Specific [place] 1.025 (Normal) Range: 1.005-1.030 97-Qmv-423238:28 METABOLIC PANEL, COMPREHENSIVE Comments: PATIENT NOT FASTINGPERFORMED BY: BASH GamingThe Valley HospitalQitarl2435 [facility] [id number] (31209) ALT (SGPT) 37 [iU]/L (Abnormal) Range: 0-32 [...] Glucose, Serum 179 mg/dL (Abnormal) Range: 65-99 55-Lia-688412:28 CBC, PLATELETS & AUT DIFF Comments: PATIENT NOT FASTINGPERFORMED BY: [employer] Oovlpl8491 [facility] [id number] (01811) Immature Grans (Abs) 0.0 {x10E3/uL} (Normal) Range: [...] 3.77-5.28 WBC 9.3 {x10E3/uL} (Normal) Range: 3.4-10.8 36-Zoe-067241:28 TSH (THYROID STIMULATING Comments: PATIENT NOT FASTINGPERFORMED BY: [employer] Vapgjm2346 [facility] [id number] HORMONE) (58827) TSH 23.220 {uIU/mL} (Abnormal) Range: 0.450-4.500 75-Hpp-956005:28 LIPID PANEL (47890) Comments: PATIENT NOT FASTINGPERFORMED BY: [facility]6370 [facility] [id number] LDL/HDL Ratio 1.7 {ratio_units} (Normal) Range: 0.0-3.2 Comments: LDL/HDL Ratio Men Women 1/2 Avg.Risk 1.0 1.5 Av g.Risk 3.6 3.2 2X Avg.Risk 6.2 5.0 3X Avg.Risk 8.0 6.1 LDL Cholesterol Calc 83 mg/dL (Normal) Range: 0-99 VLDL Cholesterol Priscilla 42 mg/dL (Abnormal) Range: 5-40 HDL Cholesterol 48 mg/dL (Normal) Triglycerides 208 mg/dL (Abnormal) Range: 0-149 Cholesterol, Total 173 mg/dL (Normal) Range: 100-199 40-Rxz-459406:28 CALCIFEDIOL (97772) Comments: PATIENT NOT FASTINGPERFORMED BY: LabCoThe Valley HospitalNouccq4691 [facility] [id number] Vitamin D, 25-Hydroxy 25.4 ng/mL (Abnormal) Range: 30.0-100.0 Comments: Vitamin D deficiency has been defined by the [place] of[place]icine and an Endocrine Society practice guideline as alevel of serum 25-OH vitamin D less than 20 ng/mL (1,2).The Endocrine Society went on to further define vitamin Dinsufficiency as a level between 21 and 29 ng/mL (2).1. IOM ([place] of Medicine). 2010. Dietary reference intakes for calcium and D. [place]: The National Academies Press.2. Rachel MF, Yael NC, Markus-Kenny HERRERA, et al. Evaluation, treatment, and prevention of vitamin D deficiency: an Endocrine Society clinical practice guideline. JCEM. 2010; 96(7):1911-30. 69-Ako-394306:40 Basic Metabolic Profile (BMP) Comments: 'TROP' Serial specimen #1, #2, #3, or #4: [address] [place] [address] [address] [place] [place], [id number] GAP 11 (Normal) Range: 5-15 CO2 24.0 [...] 126 mg/dLsuggests DIABETES MELLITUS per A.D.A. criteria. 98-Nfd-195870:40 BNP,B-Type NATRIURETIC PEPTIDE Comments: [facility] Lcrfpbtogi2897 [facility]. [place], [place], [address] B-TYPE SANJU PEP 13.3 pg/mL (Normal) Range: 0-100 28-Iru-350442:40 CBC W/Diff, Automated Comments: [facility] [address] [place], [place], [address] Absolute Lymph 1.65 {X10_3/ul} (Normal) Range: 0.83-4.51 [...] 4.2-5.4 WBC 4.1 K/mm3 (Abnormal) Range: 4.4-11.0 65-Mjq-095574:40 Troponin-I Comments: 'TROP' Serial specimen #1, #2, #3, or #4: [address] [place] [address] [address] [place], [address] TROPONIN-I < 0.02 ng/mL (Normal) Comments: TROPONIN-I EXPECTED VALUES <0.05 NEGATIVE 0.06 - 0.59 AT RISK OF AR > OR = 0.60 SUGGEST AR 24-Unx-760648:08 Microscopic Examination Comments: PATIENT WAS FASTINGPERFORMED BY: [facility] Izltze7223 [facility] [id number] Bacteria Few (Normal) Mucus Threads Present (Normal) Cast Type Hyaline casts (Normal) Casts Present {/lpf} (Abnormal) Epithelial Cells (non renal) 0-10 {/hpf} (Normal) Range: 0 - 10 RBC 0-2 {/hpf} (Normal) Range: 0 - 2 WBC 11-30 {/hpf} (Abnormal) Range: 0 - 5 23-Hzu-939998:08 CALCIFIDIOL (33796) VIT D 25 Comments: PATIENT WAS FASTINGPERFORMED BY: [facility] Glfnho7837 [facility] [id number] Vitamin D, 25-Hydroxy 33.5 ng/mL (Normal) Range: 30.0-100.0 Comments: Vitamin D deficiency has been defined by the [place] ofPrem[facility] and an Endocrine Society practice guideline as alevel of serum 25-OH vitamin D less than 20 ng/mL (1,2).The Endocrine Society went on to further define vitamin Dinsufficiency as a level between 21 and 29 ng/mL (2).1. IOM ([place] of Medicine). 2010. Dietary reference intakes for calcium and D. [place]: The National Academies Press.2. Rachel MF, Yael NC, Dunia HERRERA, et al. Evaluation, treatment, and prevention of vitamin D deficiency: an Endocrine Society clinical practice guideline. JCEM. 2010; 96(7):1911-30. 35-Qsv-025474:08 TSH (70970) Comments: PATIENT WAS FASTINGPERFORMED BY: [employer] Ebpdmj6620 [facility] [id number] TSH 3.700 {uIU/mL} (Normal) Range: 0.450-4.500 09-Bdi-656871:08 LIPID PANEL (27516) Comments: PATIENT WAS FASTINGPERFORMED BY: [employer] Dqsfti3301 [facility] [id number] LDL/HDL Ratio 1.8 {ratio_units} (Normal) Range: 0.0-3.2 Comments: LDL/HDL Ratio Men Women 1/2 Avg.Risk 1.0 1.5 Av g.Risk 3.6 3.2 2X Avg.Risk 6.2 5.0 3X Avg.Risk 8.0 6.1 LDL Cholesterol Calc 84 mg/dL (Normal) Range: 0-99 VLDL Cholesterol Priscilla 49 mg/dL (Abnormal) Range: 5-40 HDL Cholesterol 46 mg/dL (Normal) Triglycerides 243 mg/dL (Abnormal) Range: 0-149 Cholesterol, Total 179 mg/dL (Normal) Range: 100-199 80-Wjv-988840:08 URINALYSIS, W/ MICRO (64424) Comments: PATIENT WAS FASTINGPERFORMED BY: [employer] Gmnpqe4971 [facility] [id number] Microscopic Examination See below: (Normal) Comments: Microscopic was indicated and was performed. Nitrite, Urine Negative (Normal) Urobilinogen,Semi-Qn 0.2 mg/dL (Normal) Range: 0.2-1.0 Bilirubin Negative (Normal) Occult Blood Negative (Normal) Ketones Negative (Normal) Glucose Negative (Normal) Protein 2+ (Abnormal) WBC Esterase 1+ (Abnormal) Appearance Clear (Normal) Urine-Color Yellow (Normal) pH 5.5 (Normal) Range: 5.0-7.5 Specific [place] >=1.030 (Abnormal) Range: 1.005-1.030 29-Yuk-125077:08 MICROALBUMIN: CREATININE RATIO Comments: PATIENT WAS FASTINGPERFORMED BY: Your SurvivalThe Valley HospitalCldvjj1728 [facility] [id number] (61552) AND (16956) Microalb/Creat Ratio 246.3 {mg/g_creat} (Abnormal) Range: 0.0-30.0 Microalbumin, Urine 433.7 ug/mL (Normal) Comments: Results confirmed ondilution. Creatinine, Urine 176.1 mg/dL (Normal) 07-Cpy-146163:08 METABOLIC PANEL, COMPREHENSIVE Comments: PATIENT WAS FASTINGPERFORMED BY: [employer] LabCoThe Valley HospitalDkaevu4577 [facility] [id number] (05058) ALT (SGPT) 26 [iU]/L (Normal) Range: 0-32 [...] Glucose, Serum 158 mg/dL (Abnormal) Range: 65-99 91-Gwl-934315:08 CBC W/AUTO DIFF WBC (98819) Comments: PATIENT WAS FASTINGPERFORMED BY: LabCoThe Valley HospitalRxfmuq3467 [facility] [id number] Immature Grans (Abs) 0.0 {x10E3/uL} (Normal) Range: [...] (Normal) Range: 3.4-10.8 :31 HgA1C , Office (55684) HgA1C , Office 6.6 % (Normal) Range: 4.6 - 7.1 :31 Blood Glucose , Office (48100) Blood Glucose , Office 143 (Normal) :45 CBC W/Diff, Automated Comments: [facility] [address] [place], [place], [address] Absolute Lymph 1.46 {X10_3/ul} (Normal) Range: 0.83-4.51 [...] 4.2-5.4 WBC 12.9 K/mm3 (Abnormal) Range: 4.4-11.0 2-Uey-703773:45 Comprehensive Metabolic Profil Comments: [facility] [address] [place], [place], [address] GAP 8 (Normal) Range: 5-15 CO2 27.0 [...] 126 mg/dLsuggests DIABETES MELLITUS per A.D.A. criteria. 4-Ypf-917118:45 Prothrombin Time w/INR Comments: [facility] [address]vbffi[address]nr[address] [place], [place], [address] INR 0.9 (Normal) PROTIME 11.6 s (Abnormal) Range: 11.7-14.9 7-Zff-557868:12 HgA1C , Office (43054) HgA1C , Office 6.5 % (Normal) Range: 4.6 - 7.1 8-Kqv-344168:12 Blood Glucose , Office (51009) Blood Glucose , Office 122 (Normal) 47-Hzn-31699:39 Lipid Profile Comments: [facility] [address] [place], [place], [address] VLDL 39 mg/dL (Normal) Range: 5-40 LDL [...] report for address and phone number METHYL 450390 215 nmol/L (Normal) Range: 0-378 Comments: Performed at: [facility] LabCo[address] [id number] Director: Frantz Josue MD, Phone: [phone] :[phone] Vitamin B12 531 pg/mL (Normal) Comments: [facility] Cnm[address]vo[address] [place], [address] Range: 211-911 :39 Vitamin D,25 Hydroxy Comments: [facility] [address]ots[address]wh[address] [place], [place], [address] Vitamin D 25-OH 44.7 ng/mL (Normal) Comments: Vitamin D 25(OH) Status Range Deficiency <20 ng/mL (50nmol/L) Insuffciency 20 - 30 ng/mL (50 - 75 nmol/L) Sufficiency 30 - 100 ng/mL (75 - 250 nmol/L) Toxicity >100 ng/mL (>250 nmol/L) :29 Bedside Glucose Comments: [facility] LaboratoryPoint of Uahu[address] [place] [place] [address] BEDSIDE GLU 139 mg/dL (Abnormal) Range: 70-110 Comments: No Action RequiredMANAGEMENT OF PATIENT CARE PER NURSING PROTOCOL COLON BIOPSY (CHOOSE See Note (Normal) Comments: [facility] [address] [place], [address] :54 SITE) Comments: Patient: MARICRUZ GRIGSBY : 1940 (76/F) Acct Num: [id number] Phys: Constantine Saunders Unit Num: [id number] Loc: LABSPEC Specimen: [id number] Received: 11/05/16 - 163 Spe c Type: [...] one cassette. / RY:edita 11/06/16 TC:1 CPT: 24432 x2 HEADER OPERATION: Colonoscopy with polypectomy PRE-OP [...] on file> :47 CBC W/Diff, Automated Comments: [facility] [address] [place], [place], [address] Absolute Lymph 1.88 {X10_3/ul} (Normal) Range: 0.83-4.51 [...] 4.2-5.4 WBC 8.8 K/mm3 (Normal) Range: 4.4-11.0 :42 Comprehensive Metabolic Profil Comments: Order Date: 10/10/16Order Info: 0786-1 - *CMP Complete Metabolic PanelOrder Info: 98226-9 - *IBC Iron \E AND E\ Total Iron Binding CapacityOrder Info: 2276-4 - *FerritinComments: Reason:Order Date: 10/10/16Order Info: 67337-5 - *[place] Lamda Light ChainsComments: Reason:[facility] [address] [place], [address] GAP 9 (Normal) Range: 5-15 CO2 28.0 [...] <126 mg/dLsuggests IMPAIRED HOMEOSTASIS per A.D.A. criteria. 57-Ywr-439225:42 Ferritin Comments: Order Date: 10/10/16Order Info: 0786-1 - *CMP Complete Metabolic PanelOrder Info: 23769-3 - *IBC Iron \E AND E\ Total Iron Binding CapacityOrder Info: 2276-4 - *FerritinComments: Reason:Order Date: 10/10/16Order Info: 87401-4 - *[place] Lamda Light ChainsComments: Reason:[facility] [address] [place], [place], [address] FERRITIN 45 ng/mL (Normal) Range: 8-252 13-Wdt-542901:42 DEEPALI + Protein Elect, Serum Comments: Order Date: 10/10/16Order Info: 0282-1 - *IMEL DEEPALI + Prot Elec, Serum 1495Order Info: 68167-6 - *[place] Lamda Light ChainsOrder Date: 10/10/16Order Info: 0282-1 - *IMEL DEEPALI + Prot Elec, Serum 1495Order Info: 69429-5 - *[place] Lamda Light ChainsOrder Date: 10/10/16Order Info: 22281-3 - *[place] Lamda Light ChainsIs Patient Fasting? NComments: Reason:[facility] (refer to report for specific site)refer to report for address and phone number NOTE: Comment (Normal) Comments: Protein electrophoresis scan will follow via computer,mail, or director workforce management delivery. DEEPALI RESULT,S Comment (Normal) Comments: Immunofixation shows IgG monoclonal protein with lambdalight chain specificity. A/G RATIO 1.4 (Normal) Range: 0.7-1.7 GLOBULIN, TOTAL 2.8 g/dL (Normal) Range: 2.2-3.9 M-SPIKE 0.3 g/dL (Abnormal) GAMMA GLOBULIN 0.8 g/dL (Normal) Range: 0.4-1.8 BETA GLOBULIN 0.9 g/dL (Normal) Range: 0.7-1.3 HPOFG-2-YAES 0.9 g/dL (Normal) Range: 0.4-1.0 HEOLK-9-BERW 0.2 g/dL (Normal) Range: 0.0-0.4 ALBUMIN 3.7 g/dL (Normal) Range: 2.9-4.4 IMMUNOGL M 100 mg/dL (Normal) Range: 26-217 IMMUNO A 106 mg/dL (Normal) Range: 64-422 IMMUNO G 693 mg/dL (Abnormal) Range: 700-1600 PROTEIN,TOTAL 6.5 g/dL (Normal) Range: 6.0-8.5 85-Dav-673132:42 Iron+Iron Binding Capacity Comments: Order Date: 10/10/16Order Info: 0786-1 - *CMP Complete Metabolic PanelOrder Info: 32229-9 - *IBC Iron \E AND E\ Total Iron Binding CapacityOrder Info: 2276-4 - *FerritinComments: Reason:Order Date: 10/10/16Order Info: 39264-8 - *[place] Lamda Light ChainsComments: Reason:[facility] [address] [place], [place], [address] IRON SATURATION 15.9 % (Normal) Range: 15.0-55.0 IRON 49 ug/dL (Abnormal) Range: 50-170 TIBC 309 ug/dL (Normal) Range: 250-450 04-Efs-231005:42 [place] Lambda Light Chains Comments: Order Date: 10/10/16Order Info: 0282-1 - *IMEL DEEPALI + Prot Elec, Serum 1495Order Info: 37224-0 - *[place] Lamda Light ChainsOrder Date: 10/10/16Order Info: 0282-1 - *IMEL DEEPALI + Prot Elec, Serum 1495Order Info: 88539-7 - *[place] Lamda Light ChainsOrder Date: 10/10/16Order Info: 64113-5 - *[place] Lamda Light ChainsIs Patient Fasting? NComments: Reason:[facility] (refer to report for specific site)refer to report for address and phone number KAPPA/LAMBDA % 0.98 (Normal) Range: 0.26-1.65 Comments: Performed at: - [facility] [address] [id number] Director: Constantine Christianson PhD, Phone: [phone] FR LAMBDA LT CH 19.06 mg/L (Normal) Range: 5.71-26.30 FR KAPPA LT CHN 18.62 mg/L (Normal) Range: 3.30-19.40 80-Fsy-605990:06 VITAMIN B-12 (CYANOCOBALAMIN) Comments: PATIENT NOT FASTINGPERFORMED BY: CB [facility] Qblsjq0210 [facility] [id number] (31731) Vitamin B12 709 pg/mL (Normal) Range: 211-946 :45 Blood Glucose , Office (98189) Blood Glucose , Office 104 (Normal) 05-Psd-254179:45 HgA1C , Office (95645) HgA1C , Office 6.7 % (Normal) Range: 4.6 - 7.1 :54 CBC W/Diff, Automated Comments: [facility] [address] [place], [address] Absolute Lymph 1.51 {X10_3/ul} (Normal) Range: 0.83-4.51 [...] Range: 4.4-11.0 :54 Comprehensive Metabolic Profil Comments: [facility] [address] [place], [place], [address] GAP 8 (Normal) Range: 5-15 CO2 28.0 [...] per A.D.A. criteria. :54 Lipid Profile Comments: [facility] [address] [place], [place], [address] VLDL 38 mg/dL (Normal) Range: 5-40 LDL [...] High Risk :54 Microalb:Creat Ratio,Random UR Comments: [facility] [address] [place], [place], [address] MALB:CREAT 223.2 {mg/g_CRE} (Abnormal) MICROALBUMIN,UR 250.0 mg/L (Normal) UR CREAT 112.00 mg/dL (Normal) :54 Thyroid Stim Hormone (TSH) Comments: [facility] [address] [place], [address] TSH 1.13 {uIU/mL} (Normal) Range: 0.358-3.74 :54 Urinalysis, Complete Comments: How was Urine Obtained? CLEAN [facility] [address] [place], [place], [address] MUCUS, URINE 0 SEEN {/hpf} (Normal) BACTERIA [...] (Normal) CLARITY Clear (Normal) COLOR Yellow (Normal) 73-Eju-67006:54 Vitamin D,25 Hydroxy Comments: [facility] [address] [place], [address] Vitamin D 25-OH 31.6 ng/mL (Normal) Comments: Vitamin D 25(OH) Status Range Deficiency <20 ng/mL (50nmol/L) Insuffciency 20 - 30 ng/mL (50 - 75 nmol/L) Sufficiency 30 - 100 ng/mL (75 - 250 nmol/L) Toxicity >100 ng/mL (>250 nmol/L) 26-Qho-257963:07 VITAMIN B-12 (CYANOCOBALAMIN) Comments: PATIENT NOT FASTINGPERFORMED BY: [employer] Energyin [place] [id number] (23664) Vitamin B12 1119 pg/mL (Abnormal) Range: 211-946 43-Oty-598678:23 Microscopic Examination Comments: PATIENT WAS FASTINGPERFORMED BY: [employer] WallerShang[employer] Yu[place] Groupblin [place] [id number] Bacteria Few (Normal) Mucus Threads Present (Normal) Epithelial Cells (non renal) 0-10 {/hpf} (Normal) Range: 0 - 10 RBC 0-2 {/hpf} (Normal) Range: 0 - 2 WBC >30 {/hpf} (Abnormal) Range: 0 - 5 95-Dnf-886634:23 VITAMIN B-12 (CYANOCOBALAMIN) Comments: PATIENT WAS FASTINGPERFORMED BY: [employer]aox judge.meblin [place] [id number] (60816) Vitamin B12 >2000 pg/mL (Abnormal) Range: 211-946 14-Dof-756510:23 TSH (87204) Comments: PATIENT WAS FASTINGPERFORMED BY: [employer] [facility] [id number] TSH 5.380 {uIU/mL} (Abnormal) Range: 0.450-4.500 :23 URINALYSIS, W/ MICRO (04520) Comments: PATIENT WAS FASTINGPERFORMED BY: [facility]6370 [facility] [id number] Microscopic Examination See below: (Normal) Comments: Microscopic was indicated and was performed. Nitrite, Urine Negative (Normal) Urobilinogen,Semi-Qn 0.2 mg/dL (Normal) Range: 0.2-1.0 Bilirubin Negative (Normal) Occult Blood Negative (Normal) Ketones Negative (Normal) Glucose Negative (Normal) Protein Trace (Normal) WBC Esterase 2+ (Abnormal) Appearance Clear (Normal) Urine-Color Yellow (Normal) pH 6.0 (Normal) Range: 5.0-7.5 Specific [place] 1.022 (Normal) Range: 1.005-1.030 68-Llc-975411:23 MICROALBUMIN: CREATININE RATIO Comments: PATIENT WAS FASTINGPERFORMED BY: [facility]6370 [facility] [id number] (70974) AND (06566) Microalb/Creat Ratio 24.2 {mg/g_creat} (Normal) Range: 0.0-30.0 Microalbumin, Urine 35.4 ug/mL (Normal) Creatinine, Urine 146.0 mg/dL (Normal) :23 METABOLIC PANEL, COMPREHENSIVE Comments: PATIENT WAS FASTINGPERFORMED BY: [facility]6370 [facility] [id number] (12040) ALT (SGPT) 25 [iU]/L (Normal) Range: 0-32 [...] Glucose, Serum 143 mg/dL (Abnormal) Range: 65-99 02-Thz-048988:23 CBC W/AUTO DIFF WBC (68036) Comments: PATIENT WAS FASTINGPERFORMED BY: [facility] Pclvba0222 [facility] [id number] Immature Grans (Abs) 0.0 {x10E3/uL} (Normal) Range: [...] 3.77-5.28 WBC 7.4 {x10E3/uL} (Normal) Range: 3.4-10.8 30-Mzf-514647:23 CALCIFIDIOL (86031) VIT D 25 Comments: PATIENT WAS FASTINGPERFORMED BY: LabVeter[facility]6370 [facility] [id number] Vitamin D, 25-Hydroxy 28.9 ng/mL (Abnormal) Range: 30.0-100.0 Comments: Vitamin D deficiency has been defined by the [place] ofMedicine and an Endocrine Society practice guideline as alevel of serum 25-OH vitamin D less than 20 ng/mL (1,2).The Endocrine Society went on to further define vitamin Dinsufficiency as a level between 21 and 29 ng/mL (2).1. IOM ([place] of Medicine). 2010. Dietary reference intakes for calcium and D. [place]: The National Academies Press.2. Rachel MF, Yael MARLEY, Dunia HERRERA, et al. Evaluation, treatment, and prevention of vitamin D deficiency: an Endocrine Society clinical practice guideline. JCEM. 2010; 96(7):1911-30. :22 HgA1C , Office (14249) HgA1C , Office 7.1 % (Normal) Range: 4.6 - 7.1 :22 Blood Glucose , Office (51745) Blood Glucose , Office 171 (Normal) :10 Basic Metabolic Profile (BMP) Comments: Serial Specimen #1, #2 or #3? 1'TROP' Serial specimen #1, #2, #3, or #4: [facility] Mfgdyadntw[address] [place], [place], [address] GAP 8 (Normal) Range: 5-15 CO2 28.0 [...] A.D.A. criteria. :10 CBC W/Diff, Automated Comments: [facility] [address] [place], [place], [address] Absolute Lymph 1.32 {X10_3/ul} (Normal) Range: 0.83-4.51 [...] Serial specimen #1, #2, #3, or #4: [address] [place] [address] [address] [place], [place], [address] CKRI 1.3 % (Normal) Range: 0.0-1.4 Comments: RELATIVE INDEX >1.5% IS PRESUMPTIVELY POSITIVE CPKMB 4.3 ng/mL (Normal) Range: 0.0-5.0 Comments: CK-MB and RI Interpretation MB Relative Index Non-AMI <or= 5 NA Indeterminate > 5 <or= 4 AMI > 5 > 4 CPK TOTAL 333 U/L (Abnormal) Range: 26-192 1-Dzx-628456:10 Troponin-I Comments: Serial Specimen #1, #2 or #3? 1'TROP' Serial specimen #1, #2, #3, or #4: [facility] Negmcnneby[address] [place], [place], [address] TROPONIN-I < 0.02 ng/mL (Normal) Comments: TROPONIN-I EXPECTED VALUES <0.05 NEGATIVE 0.06 - 0.59 AT RISK OF AR > OR = 0.60 SUGGEST AR :55 Blood Glucose , Office (20709) Blood Glucose , Office 117 (Normal) 5-Kku-724428:36 HgA1C , Office (63870) HgA1C , Office 7.1 % (Normal) Range: 4.6 - 7.1 :52 CBC W/Diff, Automated Comments: CBCD WITH WBC PER ORDERK[facility] [address]exf[address] [place], [place], [address] Absolute Lymph 1.67 {X10_3/ul} (Normal) Range: 0.83-4.51 [...] Range: 4.4-11.0 :52 Comprehensive Metabolic Profil Comments: [facility] [address] [place], [address] GAP 10 (Normal) Range: 5-15 CO2 26.0 [...] specificity.Bence Jorge Protein positive; lambda type.Performed at: - [place] [address] 12[address]Lab Dire ctor: Constantine Christianson PhD, Phone: [phone] :[phone] Immunofixation, Serum Comments: [facility] (refer to report for specific site)refer to report for address and phone number DEEPALI RESULT,S Comment (Normal) Comments: Immunofixation shows IgG monoclonal protein with lambdalight chain specificity. IMMUNOGL M 112 mg/dL (Normal) Range: 26-217 IMMUNO A 110 mg/dL (Normal) Range: 64-422 IMMUNO G 783 mg/dL (Normal) Range: 700-1600 :52 [place] Lambda Light Chains Comments: [facility] (refer to report for specific site)refer to report for address and phone number KAPPA/LAMBDA % 1.03 (Normal) Range: 0.26-1.65 FR LAMBDA LT CH 21.11 mg/L (Normal) Range: 5.71-26.30 FR KAPPA LT CHN 21.66 mg/L (Abnormal) Range: 3.30-19.40 :52 Lipid Profile Comments: [facility] [address] [place], [place], [address] ; review OV 12/02/15 VLDL 35 mg/dL [...] High Risk :52 Microalb:Creat Ratio,Random UR Comments: [facility] [address]oxcsor[address] [place], [address] MALB:CREAT 44.5 {mg/g_CRE} (Abnormal) MICROALBUMIN,UR 68.1 mg/L (Normal) UR CREAT 153.00 mg/dL (Normal) :52 Vitamin B12 268 pg/mL (Normal) Comments: [facility] [address]zcjtqrcve[address] [place], [address] Range: 211-911 Comments: ADDENDA: normal and has f/u this saturday:52 Vitamin D,25 Hydroxy Comments: [facility] Avyoubxnwf[address] [place], [address] Vitamin D 25-OH 48.8 ng/mL (Normal) Comments: Vitamin D 25(OH) Status Range Deficiency <20 ng/mL (50nmol/L) Insuffciency 20 - 30 ng/mL (50 - 75 nmol/L) Sufficiency 30 - 100 ng/mL (75 - 250 nmol/L) Toxicity >100 ng/mL (>250 nmol/L) :15 Basic Metabolic Profile (BMP) Comments: [facility] [id number] MICHELLE Hewitt, [id number] GAP 10 (Normal) Range: 5-15 CO2 25.0 [...] A.D.A. criteria. :15 CBC W/Diff, Automated Comments: [facility] [id number] [place], [place], [id number] RED CELL MORPH NORM C+C {NORMAL} (Normal) [...] 4.2-5.4 WBC 11.4 K/mm3 (Abnormal) Range: 4.4-11.0 [id number] HgA1C , Office ([id number]) HgA1C , Office 6.8 % (Normal) Range: 4.6 - 7.1 [id number] FERRITIN ([id number]) Comments: PATIENT WAS FASTINGPERFORMED BY: B[facility] GamingThe [facility] [id number] [facility] [id number] Ferritin, Serum 121 ng/mL (Normal) Range: 15-150 2-Rzu-717400:30 IRON (53886) Comments: PATIENT WAS FASTINGPERFORMED BY: Lab[address] [id number] Iron, Serum 56 ug/dL (Normal) Range: 35-155 [...] - 159 >60 years 27 - 139 8-Rpd-015972:30 TSH (91721) Comments: PATIENT WAS FASTINGPERFORMED BY: BASH GamingThe Valley HospitalGwojnu5792 [facility] [id number] TSH 1.660 {uIU/mL} (Normal) Range: 0.450-4.500 8-Nxz-401715:30 LIPID PANEL (74664) Comments: PATIENT WAS FASTINGPERFORMED BY: [employer] [id number] LDL/HDL Ratio 2.1 {ratio_units} (Normal) Range: 0.0-3.2 [...] Cholesterol, Total 190 mg/dL (Normal) Range: 100-199 8-Wef-830403:30 METABOLIC PANEL, COMPREHENSIVE Comments: PATIENT WAS FASTINGPERFORMED BY: [facility] EnergyKindred Hospital [facility] [id number] (03385) ALT (SGPT) 24 [iU]/L (Normal) Range: 0-32 [...] Glucose, Serum 122 mg/dL (Abnormal) Range: 65-99 4-Pvl-430333:30 Vitamin D Hydroxy (77591) Comments: PATIENT WAS FASTINGPERFORMED BY: [employer]6370 [employer] ExperienceKindred Hospital - [facility] [id number] Vitamin D, 25-Hydroxy 25.3 ng/mL (Abnormal) Range: 30.0-100.0 Comments: Vitamin D deficiency has been defined by the [place] of[place]icine and an Endocrine Society practice guideline as alevel of serum 25-OH vitamin D less than 20 ng/mL (1,2).The Endocrine Society went on to further define vitamin Dinsufficiency as a level between 21 and 29 ng/mL (2).1. IOM ([place] of Medicine). 2010. Dietary reference intakes for calcium and D. [place]: The National Academies Press.2. Rachel MF, Yael MARLEY, Dunia HERRERA, et al. Evaluation, treatment, and prevention of vitamin D deficiency: an Endocrine Society clinical practice guideline. JCEM. 2010; 96(7):1911-30. 8-Uxg-128784:30 CBC W/AUTO DIFF WBC Comments: PATIENT WAS FASTINGPERFORMED BY: LabCoThe Valley HospitalYvhxta1111 [facility] [id number] Information: [id number] (30741) Immature Grans (Abs) 0.0 {x10E3/uL} (Normal) Range: [...] 3.77-5.28 WBC 8.2 {x10E3/uL} (Normal) Range: 3.4-10.8 5-Lfe-613752:30 serum free light chains Comments: PATIENT WAS FASTINGPERFORMED BY: [employer]70 [facility] [id number] (28554) [place]/Lambda Ratio,S 0.81 (Normal) Range: 0.26-1.65 Free Lambda Lt Chains,S 17.93 mg/L (Normal) Range: 5.71-26.30 Free [place] Lt Chains,S 14.55 mg/L (Normal) Range: 3.30-19.40 :08 urine immunofixation (10190) Comments: PATIENT NOT FASTINGPERFORMED BY: [employer] Woouln6385 [facility] [id number] Information: SRC:UR [id number] DEEPALI Interpretation:U IFEGL (Normal) Comments: 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 :30 serum immunofixation (60663) Comments: PATIENT WAS FASTINGPERFORMED BY: [employer] Mhusgx9294 [facility] [id number] Immunoglobulin M, Qn, Serum 99 mg/dL (Normal) Range: 40-230 Immunoglobulin A, Qn, Serum 107 mg/dL (Normal) Range: 91-414 Immunoglobulin G, Qn, Serum 814 mg/dL (Normal) Range: 700-1600 Immunofixation Result, Serum IFEGL (Normal) Comments: Immunofixation shows IgG monoclonal protein with lambda light chainspecificity. :49 CBC W/Diff, Automated Comments: [facility] [address] [place], [place], [id number] Absolute Lymph 0.99 {X10_3/ul} (Normal) Range: 0.83-4.51 [...] K/mm3 (Normal) Range: 4.4-11.0 :49 Ferritin Comments: [facility] [address] [place], [address] FERRITIN 80 ng/mL (Normal) Range: 8-252 :49 Hemoglobin A1c Comments: [address] [place], [address] HGB A1C 6.4 % (Abnormal) Range: 4.2-6.3 :49 Iron Comments: [address] [place], [address] IRON 43 ug/dL (Abnormal) Range: 50-170 :49 Iron Binding Capacity,Total Comments: [facility] [address] [place], [place], [id number] TIBC 336 ug/dL (Normal) Range: 250-450 :49 Protein Electro.Ur-Random Comments: [facility] (refer to report for specific site)refer to report for address and phone number M-SPIKE,U Test not performed (Normal) GAMMA GLOB,U Test not performed (Normal) Comments: Test not performed BETA GLOB,U Test not performed (Normal) Comments: Test not performed ZEMSY-6-LHGG,U Test not performed (Normal) Comments: Test not performed XCRLC-8-VVLM,U Test not performed (Normal) Comments: Test not [...] electrophoresis scan will follow via computer,mail, or director workforce management delivery. NOTE: Comment (Normal) Comments: The SPE [...] electrophoresis scan will follow via computer,mail, or director workforce management delivery. A/G RATIO 1.5 (Normal) Range: 0.7-2.0 [...] 6.0-8.5 :49 Thyroid Stim Hormone (TSH) Comments: [facility] [address] [place], [place], [id number] TSH 4.43 {uIU/mL} (Abnormal) Range: 0.358-3.74 :49 Vitamin B12 431 pg/mL (Normal) Comments: [facility] [address] [place], [address] Range: 211-911 Comments: ADDENDA: has apt today :58 AFP, Tumor Marker Comments: Is Patient ? [facility] (refer to report for specific site)refer to report for address and phone number AFP TUMOR 2253 4.9 ng/mL (Normal) Range: 0.0-8.3 Comments: [employer] ECLIA methodologyPerformed at: [facility] [address] [id number] Director: Constantine Christianson PhD, Phone: [phone] :[phone] CBC W/Diff, Automated Comments: [facility] [address] [place], [address] Absolute Lymph 1.46 {X10_3/ul} (Normal) [...] 4.2-5.4 WBC 7.3 K/mm3 (Normal) Range: 4.4-11.0 18-Anl-11791:58 Comprehensive Metabolic Profil Comments: [facility] [address] [place], [place], [id number] GAP 7 (Normal) Range: 5-15 CO2 28.0 [...] per A.D.A. criteria. :58 Lipid Profile Comments: [facility] S[address] [place], [id number] ; non-emergent and has apth this week [...] :58 Vitamin B12 278 pg/mL (Normal) Comments: [facility] [address] [place], [id number] Range: 211-911 :58 Vitamin D,25 Hydroxy Comments: [facility] [address] [place], [address] Vitamin D 25-OH 38.4 ng/mL (Normal) Comments: Vitamin D 25(OH) Status Range Deficiency <20 ng/mL (50nmol/L) Insuffciency 20 - 30 ng/mL (50 - 75 nmol/L) Sufficiency 30 - 100 ng/mL (75 - 250 nmol/L) Toxicity >100 ng/mL (>250 nmol/L) :07 HgA1C , Office (55239) HgA1C , Office 6.5 % (Normal) Range: 4.6 - 7.1 :43 AFP, Tumor Marker Comments: Is Patient ? NTest performed at:[facility] Upnehdjojf4935 [facility] [place] [place] [address] AFP TUMOR 2253 4.8 ng/mL (Normal) Range: 0.0-8.3 Comments: [employer] ECLIA methodologyPerformed at: [facility] - LabCo[address] [id number] Director: Arnold Jefferson PhD, Phone: [phone] :[phone] CBC W/Diff, Automated Comments: Test performed at:[facility] Bfrtjrwfks0907 [facility] [place] [address] Absolute Lymph 1.16 {X10_3/ul} (Normal) [...] :43 Comprehensive Metabolic Profil Comments: Test performed at:[facility] Rjczfmjedp4403 [facility] [place] [address] GAP 11 (Normal) Range: 5-15 [...] criteria. :43 Lipid Profile Comments: Test performed at:[facility] Coosldzgiy2566 [facility] [address]. [place], [place] [address] VLDL 61 mg/dL (Abnormal) Range: 5-40 LDL [...] :43 Microalb:Creat Ratio,Random UR Comments: Test performed at:[facility] [address] [place] [address] MALB:CREAT 15.9 {mg/g_CRE} (Normal) MICROALBUMIN,UR 19.2 mg/L (Normal) UR CREAT 120.3 mg/dL (Normal) :43 Thyroid Stim Hormone (TSH) Comments: Test performed at:[facility] [address] [place] [address] TSH 2.19 {uIU/mL} (Normal) Range: 0.358-3.74 :43 Vitamin B12 261 pg/mL (Normal) Comments: Test performed at:[facility] [address] [place] [address] Range: 211-911 Comments: ADDENDA: nl and pt has apt tomorrow :43 Vitamin D,25 Hydroxy Comments: Test performed at:[facility] [address] [place] [address] Vitamin D 25-OH 30.9 ng/mL (Normal) Comments: Vitamin D 25(OH) Status Range Deficiency <20 ng/mL (50nmol/L) Insuffciency 20 - 30 ng/mL (50 - 75 nmol/L) Sufficiency 30 - 100 ng/mL (75 - 250 nmol/L) Toxicity >100 ng/mL (>250 nmol/L) :38 HgA1C , Office (88252) HgA1C , Office 6.7 % (Normal) Range: 4.6 - 7.1 :56 AFP, Tumor Marker Comments: Is Patient ? NTest performed at:[facility] [address] [place] [address] ; appt 02/15 AFP TUMOR 2253 4.8 ng/mL (Normal) Range: 0.0-8.3 Comments: Patricia ECLIA methodologyPerformed at: [facility] [address] [id number] Director: Arnold Jefferson PhD, Phone: [phone] 64-Dfi-99039:56 CBC W/Diff, Automated Comments: Test performed at:[facility] [address] [place] [address] Absolute Lymph 2.37 {X10_3/ul} (Normal) [...] 4.4-11.0 :56 Lipid Profile Comments: Test performed at:[facility] [address] [place] [address] VLDL 26 mg/dL (Normal) Range: 5-40 LDL [...] :56 Partial Thromboplast Time Comments: Test performed at:[facility] [address] [place] [address] PTT 30.1 s (Normal) Range: 24.1-36.2 :56 Prothrombin Time w/INR Comments: Test performed at:[facility] [address] [place] [address] INR 1.0 (Normal) PROTIME 12.8 s (Normal) Range: 11.7-14.9 :56 Thyroid Stim Hormone (TSH) Comments: Test performed at:[facility] [address] [place] [address] TSH 5.17 {uIU/mL} (Abnormal) Range: 0.358-3.74 :56 Vitamin B12 293 pg/mL (Normal) Comments: Test performed at:[facility] [address]uc[address] [place] [address] Range: 211-911 :56 Vitamin D,25 Hydroxy Comments: Test performed at:[facility] [address] [place] [address] Vitamin D 25-OH 32.0 ng/mL (Normal) Comments: Vitamin D 25(OH) Status Range Deficiency <20 ng/mL (50nmol/L) Insuffciency 20 - 30 ng/mL (50 - 75 nmol/L) Sufficiency 30 - 100 ng/mL (75 - 250 nmol/L) Toxicity >100 ng/mL (>250 nmol/L) :07 HgA1C , Office (56597) HgA1C , Office 6.3 % (Normal) Range: 4.6 - 7.1 :33 CBC W/Diff, Automated Comments: Test performed at:[facility] [address] [place] [address] ; non- emergent till apt Absolute [...] :33 Comprehensive Metabolic Profil Comments: Test performed at:[facility] [address]xjp[address] [place] [address] GAP 4 (Abnormal) Range: 5-15 [...] criteria. :33 Lipid Profile Comments: Test performed at:[facility] [address] [place] [address] VLDL 29 mg/dL (Normal) Range: [...] B12 394 pg/mL (Normal) Comments: Test performed at:[facility] [address] [place] [address] Range: 211-911 :33 Vitamin D,25 Hydroxy Comments: Test performed at:[facility] Jyuqinabbv7863 [facility] [place] [address] Vitamin D 25-OH 39.6 ng/mL (Normal) Comments: Vitamin D 25(OH) Status Range Deficiency <20 ng/mL (50nmol/L) Insuffciency 20 - 30 ng/mL (50 - 75 nmol/L) Sufficiency 30 - 100 ng/mL (75 - 250 nmol/L) Toxicity >100 ng/mL (>250 nmol/L) 78-Djh-975488:10 HgA1C , Office (05461) HgA1C , Office 6.4 % (Normal) Range: [...] CHOL 167 mg/dL (Normal) Comments: <200 mg/dL Xqufbgmvf328-499 mg/dL Borderline>240 mg/dL High Risk TRIG 200 mg/dL (Abnormal) Range: 0-199 Comments: Serum Triglycerides Reference IntervalNormal <150 mg/dLBorderline high 150 - 199 mg/dLHigh 200 - 499 mg/ dLVery High > or = 500 mg/dL :42 TIBC 275 ug/dL (Normal) Range: 250-450 :42 TSH 2.12 {uIU/mL} (Normal) Range: 0.358-3.74 33-Quu-651644:10 FERRITIN (85235) Comments: PATIENT NOT FASTINGPERFORMED BY: [employer] Zuzkyz2687 [facility] [id number] Ferritin, Serum 133 ng/mL (Normal) Range: 15-150 60-Sfe-307746:10 IRON BINDING CAPACITY Comments: PATIENT NOT FASTINGPERFORMED BY: BASH GamingThe Valley HospitalYqcjiw7807 [facility] [id number] Information: [id number] (TIBC) (79783) Iron Saturation 20 % (Normal) Range: 15-55 Iron, Serum 62 ug/dL (Normal) Range: 35-155 UIBC 241 ug/dL (Normal) Range: 150-375 Iron Bind.Cap.(TIBC) 303 ug/dL (Normal) Range: 250-450 94-Lrb-595454:10 VITAMIN B-12 (CYANOCOBALAMIN) Comments: PATIENT NOT FASTINGPERFORMED BY: BASH GamingThe Valley HospitalEtrdnj2319 [facility] [id number] (88217) Vitamin B12 421 pg/mL (Normal) Range: 211-946 46-Xvh-799061:10 TSH (84397) Comments: PATIENT NOT FASTINGPERFORMED BY: LabCoThe Valley HospitalEphzxg1195 [facility] [id number] TSH 1.150 {uIU/mL} (Normal) Range: 0.450-4.500 26-Uxh-185676:37 HgA1C , Office (76828) HgA1C , Office 6.1 % (Normal) Range: 4.6 - 7.1 4-Tzj-613517:10 CBC with manual diff Comments: PATIENT WAS FASTINGPERFORMED BY: LabCoThe Valley HospitalJgtpad8105 [facility] [id number] Information: [id number] (59736) Immature Grans (Abs) 0.0 {x10E3/uL} (Normal) Range: [...] 3.77-5.28 WBC 8.2 {x10E3/uL} (Normal) Range: 3.4-10.8 3-Bar-799426:10 Metabolic Panel, Comprehensive Comments: PATIENT WAS FASTINGPERFORMED BY: [facility]6370 [facility] [id number] (40908) ALT (SGPT) 11 [iU]/L (Normal) Range: 0-32 [...] Glucose, Serum 129 mg/dL (Abnormal) Range: 65-99 :10 Lipid Panel (60062) Comments: PATIENT WAS FASTINGPERFORMED BY: [employer]70 [facility] [id number] LDL/HDL Ratio 1.4 {ratio_units} (Normal) Range: 0.0-3.2 [...] METABOLIC PANEL, Comments: PATIENT NOT FASTINGPERFORMED BY: [employer]6370 [facility] [id number] Information: [id number] COMPREHENSIVE (10769) ALT (SGPT) 15 [iU]/L (Normal) Range: 0-32 [...] 133 mg/dL (Abnormal) Range: 65-99 :14 TSH (72313) Comments: PATIENT NOT FASTINGPERFORMED BY: [facility] Qqxtni6878 [facility] [id number] TSH 0.182 {uIU/mL} (Abnormal) Range: 0.450-4.500 :40 [...] CHOL 99 mg/dL (Normal) Comments: <200 mg/dL Vwbbbjojn095-653 mg/dL Borderline>240 mg/dL High Risk :40 MIACRE [...] CHOL 148 mg/dL (Normal) Comments: <200 mg/dL Etxjfrlch743-547 mg/dL Borderline>240 mg/dL High Risk HDL 46 [...] - 250 nmol/L)Toxicity >100 ng/mL (>250 nmol/L) 50-Rtr-519569:27 HgA1C , Office (78859) HgA1C , Office 6.7 % (Normal) Range: 4.6 - 7.1 :17 METABOLIC PANEL, COMPREHENSIVE Comments: PATIENT WAS FASTINGPERFORMED BY: LabCoThe Valley HospitalGbrqxa0366 [facility] [id number] (51818) ALT (SGPT) 16 [iU]/L (Normal) Range: 0-32 [...] mg/dL (Abnormal) Range: 65-99 :17 LIPID PANEL (51408) Comments: PATIENT WAS FASTINGPERFORMED BY: BASH GamingThe Valley HospitalGttxqh5302 [facility] [id number] LDL/HDL Ratio 2.0 {ratio_units} (Normal) Range: 0.0-3.2 [...] MANUAL DIFF Comments: PATIENT WAS FASTINGPERFORMED BY: BASH GamingThe Valley HospitalXvpfbq3579 [facility] [id number] Information: [id number] (78264) Immature Grans (Abs) 0.0 {x10E3/uL} (Normal) Range: [...] B-12 (CYANOCOBALAMIN) Comments: PATIENT WAS FASTINGPERFORMED BY: Your SurvivalThe Valley HospitalVctmgt8966 [facility] [id number] (84695) Vitamin B12 696 pg/mL (Normal) Range: 211-946 :17 Vitamin D Hydroxy (48331) Comments: PATIENT WAS FASTINGPERFORMED BY: [employer] LabCoThe Valley HospitalXonltp5991 [facility] [id number] Vitamin D, 25-Hydroxy 29.3 ng/mL (Abnormal) Range: 30.0-100.0 Comments: Vitamin D deficiency has been defined by the [place] of[place]icine and an Endocrine Society practice guideline as alevel of serum 25-OH vitamin D less than 20 ng/mL (1,2).The Endocrine Society went on to further define vitamin Dinsufficiency as a level between 21 and 29 ng/mL (2).1. IOM ([place] of Medicine). 2010. Dietary reference intakes for calcium and D. [place]: The National Academies Press.2. Rachel MF, Yael [place], Dunia HERRERA, et al. Evaluation, treatment, and prevention of vitamin D deficiency: an Endocrine Society clinical practice guideline. JCEM. 2010; 96(7):1911-30. 49-Cdv-453299:29 HgA1C , Office (39445) HgA1C , Office 7.0 % (Normal) Range: 4.6 - 7.1 1-Rbk-191766:14 B12 794 pg/mL (Normal) Range: 211-911 Comments: Effective 201227-Dec-20124-Max-148613:14 VITD 37.5 ng/mL (Normal) Comments: Vitamin D 25(OH) Status RangeDeficiency <20 ng/mL (50nmol/L)Insufficiency 20 - 30 ng/mL (50 - 75 nmol/L)Sufficiency 30 - 100 ng/mL (75 - 250 nm ol/L)Toxicity >100 ng/mL (250 nmol/L)Effective 201201-Dec-20121-Jzh-257001:13 CHEST PA AND LATERAL Radiology Report See [...] Tate D.O.December 01, 2012 at 12:40:54 PM [id number] Signed DS/DS If you are the referring physician and would like to consult with theradiologist who provided this i nterpretation, please contact Eulalio Tate D.O. at [phone]. If this radiologist is unavailable, you will bedirected to another radiologist to assist. If you are a patient with a question regarding t his report, pleasecontactyour referring physician directly. Professional Interpretation Provided By: [employer], Phone , These documents contain legally protected [...] 12/01/12 1244 Sign by: Mack Peterson DO 37-Jwr-782294:20 Upper Respiratory Culture Comments: PATIENT NOT FASTINGPERFORMED BY: LabV[facility] System6370 [facility] [id number] Information: SRC: THROAT Result 1 RRF (Normal) Comments: Routine respiratory alton Upper Respiratory Culture Final report (Normal) 26-Akv-034711:06 Rapid Strep Test, Office (42801) Rapid Strep Test, Office Negative (Normal) 95-Vgl-952775:32 BILAT SCRN DIGITAL & CAD Radiology Report [...] Wayne M.D.November 18, 2012 at 12:51:57 PM [id number] Signed GP/GP If you are the referring physician and would like to consult with theradiologist who provid ed this interpretation, please contact Lee Claudio at [phone]. If this radiologist is unavailable, youwill be directed to another radiologist to assist. If you are a patient with a ques tion regarding this report, pleasecontactyour referring physician directly. Professional Interpretation Provided By: [employer], Phone , These documents contain legally pr [...] 11/18/12 1254 Sign by: Teo Wayne MD 5-Mdv-468957:24 URINE RANI CULTURE-IDENTIFICATN Comments: PATIENT NOT FASTINGPERFORMED BY: LabCoThe [facility] HospitalEkwoge9176 [facility] [id number] Information: [id number] (07185) Result 1 MUG (Normal) Comments: Mixed urogenital flora10,000-25,000 colony forming units per mL Urine Final report (Normal) Culture,Comprehensive 18-Gph-042679:50 METABOLIC PANEL, Comments: PATIENT NOT FASTINGPERFORMED BY: CORTEZ [facility] Zxccyf3132 [facility] [id number] Information: ADD [id number] AND DRAW FEE 99 [id number] COMPREHENSIVE (54336) ALT (SGPT) 14 [iU]/L (Normal) Range: 0-32 [...] Glucose, Serum 109 mg/dL (Abnormal) Range: 65-99 8-Anu-741416:42 HgA1C , Office (56844) HgA1C , Office 6.3 % (Normal) Range: 4.6 - 7.1 67-Don-82897:04 Microscopic Examination Comments: PATIENT NOT FASTINGPERFORMED BY: CORTEZ [facility] Updvkt5494 [facility] [id number] Bacteria Few (Normal) Mucus Threads Present (Normal) Cast Type Hyaline casts (Normal) Casts Present {/lpf} (Abnormal) Epithelial Cells (non renal) 0-10 {/hpf} (Normal) Range: 0 - 10 RBC 0-3 {/hpf} (Normal) Range: 0 - 3 WBC 6-10 {/hpf} (Abnormal) Range: 0 - 5 :04 VITAMIN B-12 (CYANOCOBALAMIN) Comments: PATIENT NOT FASTINGPERFORMED BY: [employer] Zgtiqm3304 [facility] [id number] (54455) Vitamin B12 1228 pg/mL (Abnormal) Range: 211-946 :04 Vitamin D Hydroxy (66260) Comments: PATIENT NOT FASTINGPERFORMED BY: [employer] Suwjze4534 [facility] judge.meFormerly [facility] [id number] Vitamin D, 25-Hydroxy 21.9 ng/mL (Abnormal) Range: 30.0-100.0 Comments: Vitamin D deficiency has been defined by the [place] ofPrem[facility]cine and an Endocrine Society practice guideline as alevel of serum 25-OH vitamin D less than 20 ng/mL (1,2).The Endocrine Society went on to further define vitamin Dinsufficiency as a level between 21 and 29 ng/mL (2).1. IOM ([place] of Medicine). 2010. Dietary reference intakes for calcium and D. [place]: The National Academies Press.2. Rachel MF, Yael [place], Dunia HERRERA, et al. Evaluation, treatment, and prevention of vitamin D deficiency: an Endocrine Society clinical practice guideline. JCEM. 2010; 96(7):1911-30. :04 URINALYSIS, W/ MICRO (85192) Comments: PATIENT NOT FASTINGPERFORMED BY: [employer] Wrqolu0260 [facility] [id number] Microscopic Examination See below: (Normal) Nitrite, Urine Negative (Normal) Bilirubin Negative (Normal) Urobilinogen,Semi-Qn 0.2 mg/dL (Normal) Range: 0.0-1.9 Occult Blood Negative (Normal) Ketones Negative (Normal) Glucose Negative (Normal) Protein Negative (Normal) WBC Esterase 1+ (Abnormal) Appearance Clear (Normal) Urine-Color Yellow (Normal) pH 5.5 (Normal) Range: 5.0-7.5 Specific [place] 1.024 (Normal) Range: 1.005-1.030 79-Uiv-92057:04 CBC WITH MANUAL DIFF Comments: PATIENT NOT FASTINGPERFORMED BY: CORTEZ LabCoThe Valley HospitalRplvgc8511 [facility] [id number] Information: [id number] (96069) Immature Grans (Abs) 0.0 {x10E3/uL} (Normal) Range: [...] COMPREHENSIVE Comments: PATIENT NOT FASTINGPERFORMED BY: CORTEZ [employer] Gdfqqp8244 [facility] [id number] (26864) ALT (SGPT) 13 [iU]/L (Normal) Range: 0-32 [...] mg/dL (Abnormal) Range: 65-99 :04 LIPID PANEL (73183) Comments: PATIENT NOT FASTINGPERFORMED BY: CORTEZ [employer] Dpkrcn7862 [facility] [id number] LDL Cholesterol Calc 103 mg/dL (Abnormal) Range: [...] pg/mL (Normal) Range: 211-946 Comments: Performed at: [address] [id number] Director: Arnold Jefferson PhD, Phone: [phone] :[phone] CMP GAP 9 (Normal) Range: 5-15 [...] 250 nmol/L) Toxicity >100 ng/mL (250 nmol/L)Effective 201215-Aug-201243-Boa-856571:20 Metabolic Panel, Basic Comments: PATIENT NOT FASTINGPERFORMED BY: [employer]70 [employer] ExperienceKindred Hospital - [facility] [id number] Information: [id number] (73329) Calcium, Serum 10.2 mg/dL (Normal) Range: 8.6-10.2 [...] Glucose, Serum 99 mg/dL (Normal) Range: 65-99 0-Iok-786662:24 Microscopic Examination Comments: PATIENT NOT FASTINGPERFORMED BY: [employer] [place] [id number] Bacteria Few (Normal) Mucus Threads Present (Normal) Epithelial Cells (non renal) 0-10 {/hpf} (Normal) Range: 0 - 10 RBC 0-3 {/hpf} (Normal) Range: 0 - 3 WBC 6-10 {/hpf} (Abnormal) Range: 0 - 5 6-Gdk-147088:24 Vitamin D Hydroxy (15657) Comments: PATIENT NOT FASTINGPERFORMED BY: [employer] Geo[facility] ServicesSaint [facility] Health Center Ybcezm9871 [facility] [id number] Vitamin D, 25-Hydroxy 21.7 ng/mL (Abnormal) Range: 30.0-100.0 Comments: Vitamin D deficiency has been defined by the [place] ofPrem[facility] Southcine and an Endocrine Society practice guideline as alevel of serum 25-OH vitamin D less than 20 ng/mL (1,2).The Endocrine Society went on to further define vitamin Dinsufficiency as a level between 21 and 29 ng/mL (2).1. IOM ([place] of [employer]). 2010. Dietary reference intakes for calcium and D. [place]: The National Academies Press.2. Rachel MF, Yael NC, Dunia HERRERA, et al. Evaluation, treatment, and prevention of vitamin D deficiency: an Endocrine Society clinical practice guideline. JCEM. 2010; 96(7):1911-30. 0-Dwo-332429:24 VITAMIN B-12 (CYANOCOBALAMIN) Comments: PATIENT NOT FASTINGPERFORMED BY: [employer] Geo[facility] ServicesSaint [facility] Health Center Sggrwf1784 [facility] [id number] (32042) Vitamin B12 431 pg/mL (Normal) Range: 211-946 6-Ltk-319596:24 URINALYSIS, W/ MICRO (36805) Comments: PATIENT NOT FASTINGPERFORMED BY: [facility]Saint [facility] Unqmpj5844 [facility] [id number] Microscopic Examination MICRON (Normal) Comments: Microscopic follows if indicated. Microscopic Examination See below: (Normal) Nitrite, Urine Negative (Normal) Urobilinogen,Semi-Qn 0.2 mg/dL (Normal) Range: 0.0-1.9 Bilirubin Negative (Normal) Ketones Negative (Normal) Occult Blood Negative (Normal) Glucose Negative (Normal) Protein Negative (Normal) WBC Esterase Negative (Normal) Appearance Clear (Normal) pH 6.5 (Normal) Range: 5.0-7.5 Urine-Color Yellow (Normal) Specific [place] 1.022 (Normal) Range: 1.005-1.030 7-Piz-586476:24 CBC WITH MANUAL DIFF Comments: PATIENT NOT FASTINGPERFORMED BY: LabCoThe Valley HospitalDrmbww6127 [facility] [id number] Information: [id number] (75714) Immature Grans (Abs) 0.0 {x10E3/uL} (Normal) Range: [...] 3.77-5.28 WBC 7.9 {x10E3/uL} (Normal) Range: 4.0-10.5 3-Gdu-228570:24 METABOLIC PANEL, COMPREHENSIVE Comments: PATIENT NOT FASTINGPERFORMED BY: [facility] Gldlbm3601 [facility] [id number] (31244) ALT (SGPT) 16 [iU]/L (Normal) Range: 0-32 [...] Glucose, Serum 107 mg/dL (Abnormal) Range: 65-99 9-Vjh-648632:24 TSH (37926) Comments: PATIENT NOT FASTINGPERFORMED BY: [employer]6370 [facility] [id number] TSH 2.000 {uIU/mL} Range: 0.450-4.500 (Normal) CCP Antibodies IgG/IgA 1 {units} (Normal) Comments: PATIENT NOT FASTINGPERFORMED BY: CB LabV[facility]6370 [facility] [id number] BY: [address] [id number] :39 Range: 0-19 Comments: Negative <20 Weak positive 20 - 39 Moderate positive 40 - 59 Strong positive >59 6-Tfj-020037:39 Systemic Lupus Profile Comments: PATIENT NOT FASTINGPERFORMED BY: [facility]CoJac[place] 1793370 [facility] [id number] BY: Lab[address] [id number] Information: [id number] (79461) Anti-DNA (DS) Ab Qn <1 {IU/mL} (Normal) Range: 0-9 Comments: Negative <5 Equivocal 5 - 9 Positive >9 Sjogren's Anti-SS-B 0.5 {AI} (Normal) Range: 0.0-0.9 Sjogren's Anti-SS-A 0.3 {AI} (Normal) Range: 0.0-0.9 Antichromatin Antibodies <0.2 {AI} (Normal) Range: 0.0-0.9 RA Latex Turbid. 8.5 {IU/mL} (Normal) Range: 0.0-13.9 [place] Antibodies <0.2 {AI} (Normal) Range: 0.0-0.9 MACHINING TECHNICIAN Antibodies <0.2 {AI} (Normal) Range: 0.0-0.9 97-Pii-194041:27 HgA1C , Office (77819) HgA1C , Office 6.2 % (Normal) Range: 4.6 - 7.1 36-Utn-162372:27 Blood Glucose , Office (99633) Blood Glucose , Office 108 (Normal) :45 [...] D deficiency has been defined by the [place] of[place]icine and an Endocrine Society practice guideline as alevel of serum 25-OH vitamin D less than 20 ng/mL (1,2).The Endocrine Society went on to further define vitamin Dinsufficiency as a level between 21 and 29 ng/mL (2).1. IOM ([place] of [employer]). 2010. Dietary reference intakes for calcium and D. [place]: The National Academies Press.2. Rachel MF, Yael NC, Dunia HERRERA, et al. Evaluation, treatment, and prevention of vitamin D deficiency: an Endocrine Society clinical practice guideline. JCEM. 2010; 96(0): 1911-30.Performed at: - LabCo[address] [id number] Director: Arnold Jefferson PhD, Phone: [phone] 52-Djn-601461:59 Blood Glucose , Office (64777) Blood Glucose , Office 131 (Normal) 40-Iwu-397170:58 HgA1C , Office (47384) HgA1C , Office 6.8 % (Normal) Range: 4.6 - 7.1 25-Htc-397423:12 CBCMD RBCM NORM C+C {NORMAL} (Normal) PE [...] 4.2-5.4 WBC 7.0 K/mm3 (Normal) Range: 4.4-11.0 42-Eau-594679:12 CMP GAP 10 (Normal) Range: 5-15 CO2 [...] mg/dL suggests DIABETES MELLITUS per A.D.A. criteria. 00-Wjx-203838:12 LIPID LDL 104 mg/dL (Normal) Range: 0-130 [...] :12 TSH 2.08 {uIU/mL} (Normal) Range: 0.358-3.74 54-Ucu-792409:12 VITD 34.7 ng/mL (Normal) Range: 30.0-100.0 Comments: Vitamin D deficiency has been defined by the [place] of[place]icine and an Endocrine Society practice guideline as alevel of serum 25-OH vitamin D less than 20 ng/mL (1,2).The Endocrine Society went on to further define vitamin Dinsufficiency as a level between 21 and 29 ng/mL (2).1. IOM ([place] of [employer]). 2010. Dietary reference intakes for calcium and D. [place]: The National AcademZocere Press.2. Rachel MF, Yael MARLEY, Dunia HERRERA, et al. Evaluation, treatment, and prevention of vitamin D deficiency: an Endocrine Society clinical practice guideline. JCEM. 2010; 96(7): 1911-30.Performed at: [facility] Lab[address] [id number] Director: Tona Emmanuel MD, Phone: [phone] 57-Btx-113801:15 HgA1C , Office (76425) HgA1C , Office 5.8 % (Normal) Range: 4.6 - 7.1 14-Mew-605151:15 Blood Glucose , Office (48032) Blood Glucose , Office 113 (Normal) :30 [...] D deficiency has been defined by the [place] of[place] and an Endocrine Society practice guideline as alevel of serum 25-OH vitamin D less than 20 ng/mL (1,2).The Endocrine Society went on to further define vitamin Dinsufficiency as a level between 21 and 29 ng/mL (2).1. IOM ([place] of [place]). 2010. Dietary reference intakes for calcium and D. [place]: The National Academies Press.2. Rachel MF, Yael NC, Dunia HERRERA, et al. Evaluation, treatment, and prevention of vitamin D deficiency: an Endocrine Society clinical practice guideline. JCEM. 2010; 96(7): 1911-30.Performed at: [address] [id number] Director: Tona Emmanuel MD, Phone: [phone] 39-Nsm-834933:02 CTA NECK W/WO CONTRAST Radiology Report See [...] ologist regarding this report, please call our 26K6yguwzmh line @ Dictated on 10/08/11 1409 by Juana Wayne MDeleTranscribed on 10/09/11 0856 by ITS IMPORTSign by Juana Wayne MD on 10/09/11 0857 Sign by: Teo Wayne MD 48-Msl-664982:00 BILAT SCRN DIGITAL & CAD Radiology Report [...] radiologist regarding this report, please call our 61T3uoycrsd line @ Dictated on 09/18/11 1040 by Ori clifton MD,Davidranscribed on 09/20/11900 by ITS IMPORTSign by Teo Wayne MD on 09/20/11901 Sign by: Teo Wayne MD 75-Noe-95113:59 DEXA BONE DENSITY STUDY (HP) Radiology Report [...] regarding this re port, please call our 65P6hqhvnkm line @ Dictated on 09/18/11 1002 by David Wayne MDranscribed on 09/19/11 1416 by ITS IMPORTSign by Teo Wayne MD on 09/19/11 1417 Sign by: Teo Wayne MD 76-Ggv-410989:17 HgA1C , Office (49343) HgA1C , Office 5.9 % (Normal) Range: 4.6 - 7.1 98-Eqn-255162:17 Blood Glucose , Office (97844) Blood Glucose , Office 77 (Normal) 04-Sep-20119:44 [...] >240 mg/dL High Risk :44 VIT D,25 48691 22.3 ng/mL (Abnormal) Range: 30.0-100.0 Comments: Vitamin D deficiency has been defined by the [place] of[place] and an Endocrine Society practice guideline as alevel of serum 25-OH vitamin D less than 20 ng/mL (1,2).The Endocrine Society went on to further define vitamin Dinsufficiency as a level between 21 and 29 ng/mL (2).1. IOM ([place] of [place]). 2011. Dietary reference intakes for calcium and D. [place]: The National Academies Press.2. Rachel MF, Yael NC, Dunia HERRERA, et al. Evaluation, treatment, and prevention of vitamin D deficiency: an Endocrine Society clinical practice guideline. JCEM. 2010; 96(7): 1911-30.Performed at: [address] [id number] Director: Tona Emmanuel MD, Phone: [phone] :[phone] HgA1C , Office (46588) HgA1C , Office 6.6 % (Normal) Range: 4.6 - 7.1 :34 Blood Glucose , Office (18956) Blood Glucose , Office 116 (Normal) :50 [...] Range: 4.4-11.0 :50 COMP METABOLIC Comments: appt 00716 GAP 10 (Normal) Range: 5-15 CO2 26.0 [...] {uIU/mL} (Normal) Range: 0.358-3.74 :50 VIT D,25 49301 41.3 ng/mL (Normal) Range: 32.0-100.0 Comments: Effective June 18, 2011 Vitamin D, 25-Hydroxy reference intervals will be changing to 30-100. .Recent studies consider the lower li lalo of 32.0 ng/mL to be athreshold for optimal health.Pepito ANNE. J Nutr. 2004;135(2):317-22.Performed at: [facility] [id number] Director: Tona Emmanuel MD, Phone: [phone] :50 VITAMIN B12 806 pg/mL (Normal) Range: [...] Panel (14) Comments: PATIENT WAS FASTINGPERFORMED BY: [facility] [id number] ALT (SGPT) 40 [iU]/L (Normal) Range: 0-40 [...] Glucose, Serum 136 mg/dL (Abnormal) Range: 65-99 6-Anw-895204:09 Lipid Panel With LDL/HDL Comments: PATIENT WAS FASTINGPERFORMED BY: [facility] Lcwubd2991 [facility] [id number] Ratio LDL Cholesterol Calc 74 mg/dL (Normal) [...] 0.192 {uIU/mL} Comments: PATIENT WAS FASTINGPERFORMED BY: [employer] Geoenergy ServicesVeterans Affairs [facility] System6370 [facility] [id number] 09 (Abnormal) Range: 0.450-4.500 : Vitamin B12 417 pg/mL (Normal) Comments: PATIENT WAS FASTINGPERFORMED BY: [employer] Geo[facility] ServicesVeterans Affairs [facility] System6370 [facility] [id number] Range: 211-946 40-Nuc-324280:22 UNILAT LT DIAG DIGITAL & CAD Radiology [...] Wayne MD on 02/23/11 151 Sign by: Hema STREETER,Teo :58 CBCD,SMEAR DIFF Comments: appt 10/24/10 RED [...] {uIU/mL} (Abnormal) Range: 0.358-3.74 :58 VIT D,25 71592 22.0 ng/mL (Abnormal) Comments: appt 10/24/10 Range: 32.0-100.0 Comments: Recent studies consider the lower limit of 32.0 ng/mL to tammy threshold for optimal health.Pepito BW. J Nutr. 2005 Aug;135(2):317-22.Performed at: - LabCoSh[place] [id number] Director: Tona Emmanuel MD, Phone: [phone] :58 VITAMIN B12 285 pg/mL (Normal) Range: 254-1320 Comments: There is a low frequency possibility that high titers ofintrinsic blocking antibodies may not be completely inactivated during the reaction pretreatment stepof this testing method. If test results are i n conflictwith the clinical diagnosis, patient should be testedfor the presence of intrinsic factor blocking antibodies. 0-Qbu-251955:42 Thin prep Pap Comments: Source.............Cervical;EndocervicalNo. of containers..01 CYTYC Thin Prep VialPATIENT NOT FASTINGPERFORMED BY: LabCo[address] [facility] TONJA [id number] Information: [id number] (60961) Note: PAPSMR (Normal) Comments: The Pap smear [...] Screening for malignant neoplasm of the cervixConner Montes Ibm Bpm Architect (ASCP) 74-Upa-467444:26 BREAST UNILATERAL Radiology Report See Note (Normal) [...] on 08/28/10 1453 Sign by: ANTHONY PALOMARES 70-Igp-128355:58 UNILAT LT DIAG DIGITAL & CAD Radiology [...] Category 3: Probably Benign Finding - Initial Bkacy-CghxdwosWawqla-ht Suggested. A letter regarding these results will be sent tothepatient by the facility within 30 days. Approximately 10% of breast cancers are not detected by mammography. Anormal mammogram should not delay biopsy of a clinically suspiciousabnormality. Dictated on 08/24/10 1206 by ANTHONY PALOMARESTranscribed on 0 08/24/10 1351 by ITS IMPORTSign by ANTHONY PALOMARES on 08/24/10 1352 Sign by: ANTHONY PALOMARES 30-Nxy-23589:43 BILAT SCRN DIGITAL & CAD Radiology Report [...] 08/18/10 145 Sign by: ANTHONY PALOMARES MD 8-Cbx-446599:14 HgA1C , Office (74532) HgA1C , Office 6.5 % (Normal) Range: 4.6 - 7.1 4-Kdr-993838:14 Blood Glucose , Office (63155) Blood Glucose , Office 176 (Normal) 30-Jun-20107:30 [...] CREAT 161.2 mg/dL (Normal) : VIT D,25 40324 27.7 ng/mL Range: 32.0-100.0 30 (Abnormal) Comments: Recent studies consider the lower limit of 32.0 ng/mL to tammy threshold for optimal health.Pepito ANNE. J Nutr. 2004;135(2):317- 22.Performed at: [place] [id number] [facility] Director: Tona Emmanuel MD, Phone: [phone] : VITAMIN B12 449 pg/mL (Normal) Range: [...] {units} (Normal) Comments: PATIENT NOT FASTINGPERFORMED BY: [address] [id number] BY: [address] [id number] 0:44 Range: 0-19 Comments: Negative <20 Weak positive 20 - 39 Moderate positive 40 - 59 Strong positive >59 Comment: SPRCS (Normal) Comments: PATIENT NOT FASTINGPERFORMED BY: [address] [id number] BY: [address] [id number] 0:44 Comments: Effective April 25, 2009 order code 850111 CCP IgGAntibodies has been replaced due to an updated reagentversion 3.1. For this reason [facility] has provided youwith a new order code 946158 CCP Antibodies IgG/IgA. 93-Ygr-400530:44 Vitamin D Hydroxy Comments: PATIENT NOT FASTINGPERFORMED BY: CB [facility] Updbis5493 Waller RoadDublin [place] [id number] BY: [employer] [id number] (53700) Vitamin D, 25-Hydroxy 30.9 ng/mL (Abnormal) Range: 32.0-100.0 Comments: Recent studies consider the lower limit of 32.0 ng/mL to be athreshold for optimal health.Pepito ANNE. J Nutr. 2004;135(2):317-22. 72-Vvd-735218:44 SED RATE ERYTHROCYTE Comments: PATIENT NOT FASTINGPERFORMED BY: CB [facility] Icajbs0773 Waller RoadDublin [place] [id number] BY: [employer] [id number] (04353) Sedimentation Rate-Westergren 4 mm/h (Normal) Range: 0-30 27-Jar-082733:44 C-REACTIVE PROTEIN Comments: PATIENT NOT FASTINGPERFORMED BY: [facility] Pntush3068 Waller RoadDublin [place] [id number] BY: [employer] [id number] (87612) C-Reactive Protein, Quant 2.5 mg/L (Normal) Range: 0.0-4.9 19-Vge-440760:44 TSH (10667) Comments: PATIENT NOT FASTINGPERFORMED BY: CB [facility] Jdtcjq7446 Waller RoadDublin [place] [id number] BY: Lab[address] [id number] TSH 2.050 {uIU/mL} (Normal) Range: 0.450-4.500 88-Web-689289:44 RHEUMATOID FACTOR-QUANT Comments: PATIENT NOT FASTINGPERFORMED BY: CB [facility] Dabjlf4516 Wlaler RoadDublin [place] [id number] BY: [address] [id number] (58065) RA Latex Turbid. 8.4 {IU/mL} (Normal) Range: 0.0-13.9 24-Gue-767764:44 MELI (ANTINUCLEAR ANTIBODY) Comments: PATIENT NOT FASTINGPERFORMED BY: LabCoThe Valley HospitalKmychr9314 [facility] [id number] BY: [address] [id number] (93099) MELI Direct Negative (Normal) 82-Ifv-591250:44 CBC WITH MANUAL DIFF Comments: PATIENT NOT FASTINGPERFORMED BY: LabCoThe Valley HospitalXnidbc8880 [facility] [id number] BY: Lab[address] [id number] Inf ormation: ADD [id number] AND DRAW FEE 99 9088 (12951) Immature Grans (Abs) 0.0 {x10E3/uL} (Normal) Range: [...] 3.80-5.10 WBC 6.8 {x10E3/uL} (Normal) Range: 4.0-10.5 29-Gpj-252240:44 METABOLIC PANEL, Comments: PATIENT NOT FASTINGPERFORMED BY: CB [facility] Gsdkxc8485 [facility] [id number] BY: BN [facility] Zxpisfgsfv0295 [facility] [id number] [facility] (35351) ALT (SGPT) 21 [iU]/L (Normal) Range: 0-40 [...] (Abnormal) Range: 65-99 :33 HgA1C , Office (64630) HgA1C , Office 6.8 % (Normal) Range: 4.6 - 7.1 :33 Blood Glucose , Office (35292) Blood Glucose , Office 135 (Normal) :22 [...] CHOL 157 mg/dL (Normal) Comments: <200 mg/dL Fynzdrgfy752-986 mg/dL Borderline>240 mg/dL High Risk :22 LIVER ALB 3.5 g/dL (Normal) Range: 3.4-5.0 ALK P 97 U/L (Normal) Range: 50-136 ALT 21 U/L (Normal) Range: 12-78 AST 16 U/L (Normal) Range: 15-37 D BILI 0.12 mg/dL (Normal) Range: 0.00-0.30 T BILI 0.40 mg/dL (Normal) Range: 0.00-1.00 T PROT 6.5 g/dL (Normal) Range: 6.4-8.2 :22 TSH 1.54 {uIU/mL} Range: 0.358-3.74 (Normal) :22 VIT D,25 53765 36.8 ng/mL (Normal) Range: 32.0-100.0 Comments: Recent studies consider the lower limit of 32.0 ng/mL to tammy threshold for optimal health.Pepito ANNE. J Nutr. 2004;135(2):317-22.Performed at: [address] [id number] Director: Tona Emmanuel MD, Phone: [phone] :22 VITAMIN B12 264 pg/mL (Normal) Range: 254-1320 Comments: There is a low frequency possibility that high titers ofintrinsic blocking antibodies may not be completelyinactivated during the reaction pretreatment stepof this testing method. If test results are in conflictwith the clinical diagnosis, patient should be testedfor the presence of intrinsic factor blocking antibodies. : Amylase, Serum 92 U/L (Normal) Comments: PERFORMED BY: [address] [id number] Range: 31-124 :34 CBC With Differential/Platelet Comments: PERFORMED BY: [address] [id number] Baso (Absolute) 0.0 {x10E3/uL} (Normal) Range: 0.0-0.2 [...] 3.80-5.10 WBC 7.5 {x10E3/uL} (Normal) Range: 4.0-10.5 58-Eux-678195:34 Comp. Metabolic Panel (14) Comments: PERFORMED BY: [facility] Ruazmm4644 [facility] [id number] ALT (SGPT) 18 [iU]/L (Normal) Range: 0-40 [...] Serum 57 U/L (Normal) Comments: PERFORMED BY: [employer] Ksamaf5682 [facility] [id number] 13:34 Range: 0-59 03-Feb-20109:00 GALLBLADDER Radiology Report See Note (Normal) Comments: Exam Number: [id number] CLINICAL:Epigastric pain and bloating. ABDOMINAL ULTRASOUND TECHNIQUE:Transabdominal [...] hydronephrosis,etiology indeterminate. Reported By: KATHRYN MUNOZ M.D. 6-Guh-020963:19 CBC WITH MANUAL DIFF Comments: PATIENT NOT FASTINGPERFORMED BY: [facility]6370 [facility] [id number] Information: [id number] (09991) Baso (Absolute) 0.1 {x10E3/uL} (Normal) Range: 0.0-0.2 [...] 3.80-5.10 WBC 9.9 {x10E3/uL} (Normal) Range: 4.0-10.5 1-Rfn-539486:19 METABOLIC PANEL, COMPREHENSIVE Comments: PATIENT NOT FASTINGPERFORMED BY: LabCoThe Valley HospitalGlafkj1260 [facility] [id number] (41583) ALT (SGPT) 19 [iU]/L (Normal) Range: 0-40 [...] Glucose, Serum 83 mg/dL (Normal) Range: 65-99 7-Gxl-735110:20 KNEE,4 OR MORE VIEWS (MT) Radiology Report See Note (Normal) Comments: Exam Number: [id number] CLINICAL:This is a 69-year-old female patient with [...] as discussed above. Reported By: TEO WAYNE 0-Fmm-995876:12 HgA1C , Office (57842) HgA1C , Office 7.1 % (Normal) Range: 4.6 - 7.1 9-Xdl-318027:12 Blood Glucose , Office (84658) Blood Glucose , Office 129 (Normal) :45 [...] CHOL 155 mg/dL (Normal) Comments: <200 mg/dL Uuywjviwp924-476 mg/dL Borderline>240 mg/dL High Risk :45 VIT D,25 55440 42.5 ng/mL (Normal) Range: 32.0-100.0 Comments: Recent studies consider the lower limit of 32.0 ng/mL to tammy threshold for optimal health.Pepito ANNE. J Nutr. 2004;135(2):317-22.Performed at: CB - [facility] [address] [id number] Director: Tona Emmanuel MD :53 LIPID HDL [...] CHOL 128 mg/dL (Normal) Comments: <200 mg/dL Fnxydwfvg234-582 mg/dL Borderline>240 mg/dL High Risk :53 MICROALB:CRE UR MALB:CREAT 19.1 {mg/g_CRE} (Normal) MICROALBUMIN,UR 29.1 mg/L (Normal) UR CREAT 152.0 mg/dL (Normal) :53 TSH 0.93 {uIU/mL} (Normal) Range: 0.358-3.74 :53 VIT D,25 85786 22.7 ng/mL (Abnormal) Range: 32.0-100.0 Comments: Recent studies consider the lower limit of 32.0 ng/mL to tammy threshold for optimal health.Beyer BW. J Nutr. 2004;135(2):317-22.Performed At: CBLabCorp [address] [id number] :53 VITAMIN B12 337 pg/mL (Normal) Range: 254-1320 :09 HgA1C , Office (47522) HgA1C , Office 7.1 % (Normal) Range: 4.6 - 7.1 :09 Blood Glucose , Office (76161) Blood Glucose , Office 108 (Normal) :33 KNEE,4 OR MORE VIEWS (MT) Radiology Report See Note (Normal) Comments: Exam Number: [id number] CLINICAL:Pain X-RAY EXAMINATION RIGHT KNEE TECHNIQUE:Three view(s) [...] Report See Note (Normal) Comments: Exam Number: [id number] CLINICAL:Pain X-RAY EXAMINATION: RIGHT TIBIA AND FIBULA [...] (MT) Radiology See Note Comments: Exam Number: [id number] CLINICAL:Pain X-RAY EXAMINATION: RIGHT FEMUR TECHNIQUE:Two views [...] Visualized femur. Reported By: RAYMOND ARRIAGA M.D. 0-Trc-733937:43 [facility] DIGITAL & CAD Radiology Report See Note (Normal) Comments: Exam Number: [id number] MAMMOGRAM, UNILATERAL LEFT DIAGNOSTIC DIGITAL AND CAD HISTORYAbnormal mammogram, left breast. TECHNIQUEFull field digital images were obtained in left true lateral, rolledcranio caudal, and spot mediolateral oblique and craniocaudalprojections. CAD images were reviewed. The current study is compared to the examinations of March 12, 2006,and June 21, 2009. FINDINGSThere is a olckfuft-ps-liqoch extent of fibroglandular parenchymapresent. There is no [...] wereal so examined with computer-aided detection software (ImageOptimum Interactive USAcker, [employer] Reported By: ANTHONY PALOMARES M.D. 26-Uuh-248822:04 [facility]Aleks[facility] DIGITAL & CAD Radiology Report See Note (Normal) Comments: Exam Number: [id number] MAMMOGRAM, BILATERAL SCREENING DIGITAL AND CAD HISTORYRoutine [...] werealso examined with computer- aided detection software (viblast, to be.). Reported By: ANTHONY PALOMARES M.D. 18-Rcn-737471:03 DEXA BONE DENSITY STUDY () Radiology Report See Note (Normal) Comments: Exam Number: [id number] BONE DENSITOMETRY HISTORYOsteopenia. TECHNIQUE Bone densitometry of the lumbar spine and both hips is now beingperformed. The best criteria for evaluation of osteoporosis is theT-value, which represents the comparison of the patient's bone mass flako expected peak bone mass. For most patients, the mean T-value of D4hgdyuob L4 is used to evaluate the lumbar spine. To evalua te the hip,the lower T-value of the femoral neck or total hip is used. FINDINGSIn this patient, the mean T-value of L1 through L4 is 0.3 which isnormal. Bone mineral density is measured at 18.3% greate r than sl1711.Digital lateral view for evaluation of vertebral deformity [...] within normallimits. Reported By: ANTHONY PALOMARES M.D. 55-Qnm-686525:09 BRAIN/HEAD W/WO CONTRAST Radiology Report See Note (Normal) Comments: Exam Number: [id number] CLINICAL:69 year old female with altered mental [...] are present. Reported By: ANTHONY GRIER M.D. 43-Bqq-10496:02 CBCD,SMEAR DIFF CELLS COUNTED 100 (Normal) LYMPH [...] mg/dL VLDL 32 mg/dL (Normal) Range: 5-40 72-Fva-66937:02 MICROALB:CRE UR MALB:CREAT 38.4 {mg/g_CRE} (Abnormal) MICROALBUMIN,UR 47.5 mg/L (Normal) UR CREAT 123.4 mg/dL (Normal) 07-Jun-2009 VIT D,25 91730 19.7 ng/mL Range: 32.0-100.0 9:02 (Abnormal) Comments: Recent studies consider the lower limit of 32.0 ng/mL to tammy threshold for optimal health.Pepito ANNE. J Nutr. 2004;135(2):317- 22.Performed At: [facility]6370 [place], [place] [id number] 07-Jun-2009 VITAMIN B12 328 pg/mL (Normal) Range: 254-1320 9:02 11-Feb-2009 Homocyst(e)ine, Plasma 9.8 umol/L (Normal) Comments: PERFORMED BY: [employer] [address] [id number] 14:28 Range: 0.0-15.0 11-Feb-2009 Methylmalonic Acid, 336 nmol/L (Normal) Comments: PERFORMED BY: [employer] [address] [id number] 14:28 Serum Range: 73-376 Comments: The reference range for methylmalonic acid has been set at +3sd abovethe mean for healthy blood bank donors. In the clinical assessment ofpatients with megaloblastic anemias a cutoff of +3sd provides gr eaterspecificity in the diagnosis of the vitamin deficiency states,despite the sacrifice of some sensitivity. 11-Feb-2009 TSH 2.700 {uIU/mL} Comments: PERFORMED BY: [employer] D[address]fevil[address] [id number] 14:28 (Normal) Range: 0.450-4.500 11-Feb-2009 Vitamin B12 231 pg/mL (Normal) Comments: PERFORMED BY: LabKimberly Ville 974827 [facility] [id number] 14:28 Range: 211-911 4-Sya-858823:09 HAND,MIN 3 VIEWS (MT) Radiology Report See Note (Normal) Comments: Exam Number: [id number] RIGHT WRIST CLINICAL DATAFell and injured the [...] osteoarthritis right hand. Reported By: FERNANDO TUCKER 9-Jfk-461292:09 WRIST,MIN 3 VIEWS (MT) Radiology Report See Note (Normal) Comments: Exam Number: [id number] RIGHT WRIST CLINICAL DATAFell and injured the [...] PANEL, COMPREHENSIVE Comments: PATIENT WAS FASTINGPERFORMED BY: [facility]6370 [facility] [id number] ([id number]) A/G Ratio 1.9 (Normal) Range: 1.1-2.5 Albumin, [...] 141 mmol/L (Normal) Range: 135-145 :42 TSH (50667) Comments: PATIENT WAS FASTINGPERFORMED BY: BASH GamingThe Valley HospitalZcvjtt8531 [facility] [id number] TSH 4.980 {uIU/mL} (Abnormal) Range: 0.450-4.500 :42 MICROALBUMIN: CREATININE RATIO Comments: PATIENT WAS FASTINGPERFORMED BY: BASH GamingThe Valley HospitalTyryok[address] [place] [address] [id number] ([id number]) AND (15963) Creatinine, Urine 130.9 mg/dL (Normal) Range: 15.0-278.0 Microalb/Creat Ratio 66.4 {ug/mg_creat} (Abnormal) Range: 0.0-30.0 Microalbumin, Urine 86.9 ug/mL (Abnormal) Range: 0.0-17.0 :42 LIPID PANEL (96741) Comments: PATIENT WAS FASTINGPERFORMED BY: [employer] [id number] Cholesterol, Total 148 mg/dL (Normal) Range: 100-199 HDL Cholesterol 42 mg/dL (Normal) Comments: According to ATP-III Guidelines, HDL-C >59 mg/dL is considered anegative risk factor for CHD. LDL Cholesterol Calc 78 mg/dL (Normal) Range: 0-99 LDL/HDL Ratio 1.9 {ratio_units} (Normal) Range: 0.0-3.2 Triglycerides 141 mg/dL (Normal) Range: 0-149 VLDL Cholesterol Priscilla 28 mg/dL (Normal) Range: 5-40 :42 CBC WITH MANUAL DIFF (78556) Comments: PATIENT WAS FASTINGClinical Information: ADD DRAW FEE [id number] ADD J 46814 PERFORMED BY: [employer] [id number] Baso (Absolute) 0.1 {x10E3/uL} (Normal) Range: 0.0-0.2 [...] B-12 (CYANOCOBALAMIN) Comments: PATIENT WAS FASTINGPERFORMED BY: LabCoThe Valley HospitalPvdvso1432 [facility] [id number] ([id number]) Vitamin B12 232 pg/mL (Normal) Range: 211-911 8-Boy-462737:06 Blood Glucose , Office (82773) Blood Glucose , Office 155 (Normal) :27 [...] :06 TSH 2.34 {uIU/mL} (Normal) Range: 0.34-4.82 3-Guu-350452:27 HgA1C , Office (76858) Comments: done>Wf. HgA1C , Office 6.2 % (Normal) Range: 4.6 - 7.1 :27 Blood Glucose , Office (19542) Comments: done>Wf. Blood Glucose , Office 152 [...] 11.6-14.6 WBC 7.5 K/mm3 (Normal) Range: 4.4-11.0 2-Idv-117720:55 COMP METABOLIC A/G 1.2 {RATIO} (Normal) Range: [...] for patient's is the eGFRmultiplied by 1.212. [facility] Laboratory uses the abbreviated Modification of [...] Disease W/O Kidney Disease>/= 90 Stage One Jawafo10 - 89 Stage Two Suspect Decrease d [...] T PROT 7.3 g/dL (Normal) Range: 6.4-8.2 8-Vks-753260:55 LIPID CHOL 287 mg/dL (Abnormal) Comments: <200 [...] mg/dL VLDL 50 mg/dL (Abnormal) Range: 5-40 :55 MICROALB:CRE UR MALB:CREAT 28.3 {mg/g_CRE} (Normal) MICROALBUMIN,UR 41.7 mg/L (Normal) UR CREAT 147.6 mg/dL (Normal) 9-Tlr-876398:55 TSH 5.53 {uIU/mL} (Abnormal) Range: 0.34-4.82 39-Xdc-021398:25 TSH 0.16 {uIU/mL} (Abnormal) Range: 0.34-4.82 27-Guu-434581:31 HgA1C , Office (34209) Comments: done km HgA1C , Office 6.5 % (Normal) Range: 4.6 - 7.1 :31 Blood Glucose , Office (39183) Comments: done km Blood Glucose , Office 128 (Normal) 44-Ldl-020485:01 TSH 5.15 {uIU/mL} (Abnormal) Range: 0.34-4.82 :12 HgA1C , Office (43162) Comments: done km HgA1C , Office 6.2 % (Normal) Range: 4.6 - 7.1 :12 Blood Glucose , Office (31920) Comments: done km Blood Glucose , Office [...] Serum 117 ng/mL (Normal) Comments: PERFORMED BY: [facility] Kszoro2556 [facility] [id number] Range: 10-291 :33 Iron and TIBC Comments: PERFORMED BY: [facility]6370 [facility] [id number] Iron Bind.Cap.(TIBC) 304 ug/dL (Normal) Range: 250-450 Iron Saturation 26 % (Normal) Range: 15-55 Iron, Serum 78 ug/dL (Normal) Range: 35-155 UIBC 226 ug/dL (Normal) Range: 150-375 : Vitamin B12 412 pg/mL (Normal) Comments: PERFORMED BY: [facility]6370 [facility] [id number] Range: 211-911 :56 LIPID CHOL 222 [...] (Normal) Range: 6.4-8.2 :07 HgA1C , Office (82632) Comments: done km HgA1C , Office 5.9 % (Normal) Range: 4.6 - 7.1 :07 Blood Glucose , Office (07441) Comments: done Blood Glucose , Office 132 (Normal) 20-Igr-480079:08 B12/FOLATES FOLATES,SERUM > 24.00 ng/mL (Normal) VITAMIN B12 479 pg/mL (Normal) Range: 211-911 63-Lqg-388213:08 CBCD BASO% 0.5 % (Normal) Range: 0-1 [...] Range: 34-200 Comments: Performed At: [facility] [place] [id number] 18-Fsp-994072:08 IRON+TIBC IRON SATURATION 17.9 % (Normal) Range: [...] (Normal) Range: 34-200 Comments: Performed At: [address] [id number] :56 IRON+TIBC IRON SATURATION 17.1 % (Normal) [...] 1.50 SUGGEST AR :48 HgA1C , Office (69369) HgA1C , Office 6.4 % (Normal) Range: 4.6 - 7.1 :48 Blood Glucose , Office (67552) Blood Glucose , Office 113 (Normal) Plan [...] Indication: Double vision Double vision : Reviewed Sanding Machine Buffer Letter Indication: Double vision Fatty liver : [...] BMI 36.0-36.9,adult Right hip pain : Reviewed Sand[employer] Machine Buffer Letter Indication: Right hip pain Right hip [...] (monoclonal gammopathy of unknown significance) : Reviewed Sanding Machine Buffer Letter- stable and discharged from onc Indication: [...] Fall down steps, initial encounter : Reviewed Sand[employer] Machine Buffer Letter Indication: Fall down steps, initial encounter [...] infarction, unspecified Cerebral infarction, unspecified : Reviewed Sand[employer] Machine Buffer Letter Indication: Cerebral infarction, unspecified Upper respiratory [...] Planned Observations CBC, PLATELETS & AUT DIFF (48237)Indication: Other vitamin B12 deficiency anemia On: :17 Request TSH (09858)Indication: Abnormal TSH On: 10-Ldc-245625:38 Request T4, FREE (THYROXINE) (79829)Indication: Abnormal TSH On: :38 Request T3, FREE (TRIDOTHYRONINE) (83772)Indication: Abnormal TSH On: :38 Request ANTI-LIVER/KIDNEY MICROSOMAL ANTIBODY (86123)Indication: Elevated liver enzymes On: 01-Qtq-137607:34 Request TSH (21683)Indication: Abnormal TSH On: 35-Hfy-531604:31 Request T4, FREE (THYROXINE) (77256)Indication: Abnormal TSH On: 42-Eit-171504:31 Request T3, FREE (TRIDOTHYRONINE) (22674)Indication: Abnormal TSH On: 36-Sop-390181:31 Request BETA-2 MICROGLOBULIN (18339)Indication: Abnormal blood chemistry On: 61-Oql-153889:08 Request Urinalysis, Office (00956)Indication: Urinary frequency On: 04-Dac-782719:38 Request CBC WITH MANUAL DIFF (13890)Indication: Therapeutic drug monitoring On: :57 Request Metabolic Panel, Basic (73505)Indication: Therapeutic drug monitoring On: :57 Request Methymalonic Acid, Serum (93460)Indication: Vitamin B 12 deficiency On: 02-Csh-271801:51 Request CALCIFIDIOL (28048) VIT D 25Indication: Vitamin D deficiency, unspecified On: 76-Rnk-593508:45 Request LIPID PANEL (68363)Indication: Other and unspecified hyperlipidemia On: 31-Fob-932616:45 Request CALCIFIDIOL (04150) VIT D 25Indication: Uncontrolled type II diabetes mellitus On: :46 Request TSH (65648)Indication: Uncontrolled type II diabetes mellitus On: :46 Request URINALYSIS, W/ MICRO (36428)Indication: Uncontrolled type II diabetes mellitus On: :46 Request MICROALBUMIN: CREATININE RATIO (98762) AND (83168)Indication: Uncontrolled type II diabetes mellitus On: :46 Request METABOLIC PANEL, COMPREHENSIVE (39870)Indication: Uncontrolled type II diabetes mellitus On: :46 Request LIPID PANEL (04554)Indication: Uncontrolled type II diabetes mellitus On: :45 Request CBC W/AUTO DIFF WBC (80133)Indication: Uncontrolled type II diabetes mellitus On: :45 Request Rapid Flu (55221 x 2)Indication: Flu-like symptoms On: 79-Vxo-387195:12 Request VITAMIN B-12 (CYANOCOBALAMIN) (29395)Indication: Vitamin B 12 deficiency On: 15-Ynh-824982:45 Request FECAL OCCULT- Tubes sent home (46002)Indication: Encounter for screening for malignant neoplasm of colon (Renamed from Special screening for malignant neoplasms, colon) On: 13-Ucb-079513:35 Request THYROXINE FREE (40401)Indication: Tachycardia On: 0-Jcu-910941:04 Request FREE TRIDOTHYRONINE (T3) (83517)Indication: Tachycardia On: 0-Fja-253449:04 Request TSH (THYROID STIMULATING HORMONE) (17286)Indication: Tachycardia On: 6-Ots-064238:04 Request serum immunofixation (91016)Indication: MGUS (monoclonal gammopathy of unknown significance) On: 76-Pnp-626563:14 Request urine immunofixation (91620)Indication: MGUS (monoclonal gammopathy of unknown significance) On: 53-Lav-843779:14 Request serum free light chains (93360)Indication: MGUS (monoclonal gammopathy of unknown significance) On: 66-Ygj-492153:14 Request CBC W/AUTO DIFF WBC (52030)Indication: Diabetes mellitus type 2, controlled On: 21-Zio-686370:13 Request MICROALBUMIN: CREATININE RATIO (89563) AND (09085)Indication: Diabetes mellitus type 2, controlled On: 61-Hse-132345:13 Request METABOLIC PANEL, COMPREHENSIVE (01879)Indication: Diabetes mellitus type 2, controlled On: 61-Elg-739391:13 Request LIPID PANEL (09627)Indication: Mixed hyperlipidemia On: 45-Agg-643813:13 Request VITAMIN B-12 (CYANOCOBALAMIN) (93289)Indication: Other vitamin B12 deficiency anemia On: 97-Seb-586219:12 Request CBC (AUTO) (63255)Indication: Other vitamin B12 deficiency anemia On: 18-Afq-009636:12 Request Vitamin D Hydroxy (88045)Indication: Vitamin D deficiency, unspecified On: 55-Teh-872074:12 Request METABOLIC PANEL, COMPREHENSIVE (80224)Indication: Benign essential hypertension (Renamed from Benign essential HTN) On: 6-Fcq-548741:41 Request MICROALBUMIN: CREATININE RATIO (58872) AND (09243)Indication: Benign essential hypertension (Renamed from Benign essential HTN) On: 8-Xxc-558866:41 Request SPEP (25348)Indication: Anemia, unspecified On: 71-Zwz-081191:17 Request UPEP (81372)Indication: Anemia, unspecified On: 20-Zuj-636774:17 Request CBC W/AUTO DIFF WBC (03479)Indication: Iron (Fe) deficiency anemia On: 4-Mbl-632340:38 Request TSH (96965)Indication: Acquired hypothyroidism On: 0-Iuy-421505:38 Request TSH (39286)Indication: Acquired hypothyroidism On: Request SPEP (29130)Indication: Iron (Fe) deficiency anemia On: Request UPEP (64932)Indication: Iron (Fe) deficiency anemia On: Request IRON BINDING CAPACITY (TIBC) (89101)Indication: Iron (Fe) deficiency anemia On: Request FERRITIN (78929)Indication: Iron (Fe) deficiency anemia On: Request IRON (20942)Indication: Iron (Fe) deficiency anemia On: Request CBC, PLATELETS & AUT DIFF (84200)Indication: Other vitamin B12 deficiency anemia On: Request VITAMIN B-12 (CYANOCOBALAMIN) (05773)Indication: Other vitamin B12 deficiency anemia On: Request Hemoglobin Glyclated (HGB A1C) (14461)Indication: Diabetes mellitus type 2, controlled On: Request CBC, PLATELETS & AUT DIFF (34979)Indication: Other vitamin B12 deficiency anemia On: Request VITAMIN B-12 (CYANOCOBALAMIN) (33027)Indication: Other vitamin B12 deficiency anemia On: Request METABOLIC PANEL, COMPREHENSIVE (93678)Indication: Benign essential hypertension (Renamed from Benign essential HTN) On: Request LIPID PANEL (59815)Indication: Other and unspecified hyperlipidemia On: Request Vitamin D Hydroxy (15520)Indication: Vitamin D deficiency, unspecified On: Request JMHXA-BEVRGCBECYE-CTTGG (40994)Indication: Fatty liver On: Request BMYDK-SDEBFHXXCJJ-EWIHH (65526)Indication: Fatty liver On: Request LIPID PANEL (11092)Indication: Mixed hyperlipidemia On: Request TSH (84926)Indication: Acquired hypothyroidism On: Request MICROALBUMIN: CREATININE RATIO (86697) AND (17071)Indication: Diabetes mellitus type 2, controlled On: 34-Xwl-545186:23 Request METABOLIC PANEL, COMPREHENSIVE (96173)Indication: Diabetes mellitus type 2, controlled On: :23 Request Vitamin D Hydroxy (03026)Indication: Vitamin D deficiency, unspecified On: : Request CBC, PLATELETS & AUT DIFF (66115)Indication: Other vitamin B12 deficiency anemia On: :20 Request VITAMIN B-12 (CYANOCOBALAMIN) (32381)Indication: Other vitamin B12 deficiency anemia On: :20 Request Vitamin D Hydroxy (28028)Indication: Vitamin D deficiency, unspecified On: : Request VITAMIN B-12 (CYANOCOBALAMIN) (14219)Indication: Other vitamin B12 deficiency anemia On: : Request CBC W/AUTO DIFF WBC (97267)Indication: Other vitamin B12 deficiency anemia On: :37 Request TSH (50685)Indication: Acquired hypothyroidism On: : Request LIPID PANEL (49276)Indication: Mixed hyperlipidemia On: :37 Request EZKIA-XCAHURTADLX-LJCPW (30894)Indication: Fatty liver On: :08 Request PTT (Activated Partial Thromboplastin Time) (01895)Indication: Fatty liver On: :08 Request PT (Prothrobim Time) (00478)Indication: Fatty liver On: :08 Request Vitamin D Hydroxy (80992)Indication: Vitamin D deficiency, unspecified On: : Request VITAMIN B-12 (CYANOCOBALAMIN) (92475)Indication: Other vitamin B12 deficiency anemia On: : Request CBC W/AUTO DIFF WBC (45250)Indication: Diabetes mellitus type 2, controlled On: : Request METABOLIC PANEL, COMPREHENSIVE (41396)Indication: Diabetes mellitus type 2, controlled On: : Request LIPID PANEL (45803)Indication: Mixed hyperlipidemia On: : Request LIPID PANEL (23896)Indication: HYPERTENSION, NOS On: :40 Request CBC WITH MANUAL DIFF (51359)Indication: HYPERTENSION, NOS On: 0-Ntp-883807:40 Request METABOLIC PANEL, COMPREHENSIVE (31513)Indication: HYPERTENSION, NOS On: 3-Izo-276842:40 Request FECAL OCCULT- Tubes sent home (21224)Indication: Anemia, unspecified On: 50-Pev-743912:38 Request IRON (35244)Indication: Anemia, unspecified On: 22-Zqt-893739:38 Request CBC WITH MANUAL DIFF (47119)Indication: HYPERTENSION, NOS On: 9-Qfo-387424:29 Request METABOLIC PANEL, COMPREHENSIVE (96120)Indication: Uncontrolled type II diabetes mellitus On: 2-Oev-810973:28 Request TSH (THYROID STIMULATING HORMONE) (22940)Indication: Acquired hypothyroidism On: 83-Xjv-616590:08 Request HgA1C , Office (98815)Indication: Diabetes mellitus type 2, controlled On: 60-Ina-753568:55 Request VITAMIN B-12 (CYANOCOBALAMIN) (16575)Indication: Other vitamin B12 deficiency anemia On: 2-Bvw-324270:17 Request LIPID PANEL (12315)Indication: Other and unspecified hyperlipidemia On: 0-Ydy-835506:17 Request MICROALBUMIN: CREATININE RATIO (30539) AND (26545)Indication: Uncontrolled type II diabetes mellitus On: 6-Dom-367969:17 Request METABOLIC PANEL, COMPREHENSIVE (90840)Indication: Uncontrolled type II diabetes mellitus On: 8-Nuk-170546:17 Request HgA1C , Office (00556)Indication: Diabetes mellitus type 2, controlled On: 30-Muq-620561:25 Request LIPID PANEL (37529)Indication: Other and unspecified hyperlipidemia On: 14-Sba-291146:11 Request METABOLIC PANEL, COMPREHENSIVE (68276)Indication: Diabetes mellitus type 2, controlled On: 28-Sfr-625188:11 Request MICROALBUMIN: CREATININE RATIO (15882) AND (05416)Indication: Diabetes mellitus type 2, controlled On: 15-Gks-334474:11 Request VITAMIN B-12 (CYANOCOBALAMIN) (18629)Indication: Other vitamin B12 deficiency anemia On: 70-Okt-264039:11 Request CBC, PLATELETS & AUT DIFF (09212)Indication: Other vitamin B12 deficiency anemia On: 92-Vmi-725761:11 Request Vitamin D Hydroxy (13435)Indication: Vitamin D deficiency, unspecified On: 93-Irp-669863:10 Request Blood Glucose , Office (35855)Indication: Diabetes mellitus type 2, controlled On: :29 Request LIPID PANEL (97516)Indication: Other and unspecified hyperlipidemia On: : Request Vitamin D Hydroxy (17910)Indication: Vitamin D deficiency, unspecified On: : Request VITAMIN B-12 (CYANOCOBALAMIN) (84040)Indication: Other vitamin B12 deficiency anemia On: : Request METABOLIC PANEL, COMPREHENSIVE (28207)Indication: Benign essential hypertension (Renamed from Benign essential HTN) On: : Request MICROALBUMIN: CREATININE RATIO (46893) AND (19221)Indication: Uncontrolled type II diabetes mellitus On: : Request Sputum Culture (59448)Indication: Chronic cough On: 7-Ttq-227620:58 Request RANI CULTURE-OTHER (64582)Indication: Sore throat On: 90-Dqi-006814:06 Request Urinalysis, Office (00076)Indication: Abnormal urine On: 9-Ipg-164604:14 Request RANI CULTURE-OTHER (04386)Indication: Abnormal urine On: 5-Vpj-029620:14 Request CCP ANTIBODY (78415)Indication: History of poliomyelitis (Renamed from H/O acute poliomyelitis) On: :22 Request ANTI-Sm (ANTI [place] ANTIBODY) (92074) test code 882993Htkzuzancm: History of poliomyelitis (Renamed from H/O acute poliomyelitis) On: : Request RHEUMATOID FACTOR-QUANT (92576) test code 286604Bzrxgsiwuc: History of poliomyelitis (Renamed from H/O acute poliomyelitis) On: 9-Bov-652552:22 Request Vitamin D Hydroxy (96105)Indication: Vitamin D deficiency, unspecified On: 13-Hjn-705370:15 Request LIPID PANEL (02760)Indication: Other and unspecified hyperlipidemia On: 14-Fnm-318461:15 Request TSH (19116)Indication: Acquired hypothyroidism On: 01-Hzf-920087:15 Request METABOLIC PANEL, COMPREHENSIVE (98743)Indication: Diabetes mellitus type 2, controlled On: 40-Vva-769575:14 Request VITAMIN B-12 (CYANOCOBALAMIN) (43644)Indication: Other vitamin B12 deficiency anemia On: 84-Njv-321369:08 Request MICROALBUMIN: CREATININE RATIO (26323) AND (81570)Indication: Uncontrolled type II diabetes mellitus On: 87-Zfa-915933:30 Request METABOLIC PANEL, COMPREHENSIVE (51991)Indication: Uncontrolled type II diabetes mellitus On: 51-Lmh-557255:30 Request TSH (59486)Indication: Acquired hypothyroidism On: 52-Mqw-037979:30 Request Vitamin D Hydroxy (75056)Indication: Vitamin D deficiency, unspecified On: 89-Rsn-583722:30 Request LIPID PANEL (68864)Indication: Other and unspecified hyperlipidemia On: 40-Exn-501631:29 Request LIPID PANEL (42267)Indication: Other and unspecified hyperlipidemia On: 42-Dvo-669292:51 Request TSH (71356)Indication: Acquired hypothyroidism On: 62-Lue-217303:50 Request Vitamin D Hydroxy (43031)Indication: Vitamin D deficiency, unspecified On: 23-Jev-465699:50 Request CBC WITH MANUAL DIFF (59418)Indication: Diabetes mellitus type 2, controlled On: 98-Jmy-613702:50 Request METABOLIC PANEL, COMPREHENSIVE (76676)Indication: Diabetes mellitus type 2, controlled On: 41-Vsf-537466:50 Request Vitamin D Hydroxy (95919)Indication: Vitamin D deficiency, unspecified On: 44-Pxv-524212:44 Request VITAMIN B-12 (CYANOCOBALAMIN) (54926)Indication: Other vitamin B12 deficiency anemia On: 36-Pvr-102815:44 Request CBC WITH MANUAL DIFF (39597)Indication: Anemia, unspecified On: 32-Hdp-511981:43 Request METABOLIC PANEL, COMPREHENSIVE (66935)Indication: Diabetes mellitus type 2, controlled On: 76-Gbt-127960:43 Request MICROALBUMIN: CREATININE RATIO (35298) AND (76133)Indication: Diabetes mellitus type 2, controlled On: 69-Ypx-138594:43 Request LIPID PANEL (66767)Indication: Other and unspecified hyperlipidemia On: 25-Hnx-250569:43 Request TSH (57282)Indication: Acquired hypothyroidism On: 97-Gxh-046835:43 Request Vitamin D Hydroxy (44759)Indication: Vitamin D deficiency, unspecified On: : Request LIPID PANEL (68702)Indication: Other and unspecified hyperlipidemia On: : Request CBC WITH MANUAL DIFF (48066)Indication: Diabetes mellitus type 2, controlled On: : Request METABOLIC PANEL, COMPREHENSIVE (06936)Indication: Diabetes mellitus type 2, controlled On: : Request VITAMIN B-12 (CYANOCOBALAMIN) (87920)Indication: Other vitamin B12 deficiency anemia On: :36 Request Comments: Lot #[id number]/13Site-left deltoidDose-1 mlgiven by: Dani Rivera LPN LIPID PANEL (15225)Indication: Other and unspecified hyperlipidemia On: : Request METABOLIC PANEL, COMPREHENSIVE (89465)Indication: Uncontrolled type II diabetes mellitus On: : Request TSH (10175)Indication: Acquired hypothyroidism On: : Request Vitamin D Hydroxy (38844)Indication: Vitamin D deficiency, unspecified On: : Request CBC WITH MANUAL DIFF (19385)Indication: Anemia, unspecified On: : Request CBC WITH MANUAL DIFF (94722)Indication: Other vitamin B12 deficiency anemia On: :20 Request Blood Glucose , Office (19377)Indication: Uncontrolled type II diabetes mellitus On: :15 Request Comments: 149 HgA1C , Office (78109)Indication: Uncontrolled type II diabetes mellitus On: :15 Request METABOLIC PANEL, COMPREHENSIVE (68518)Indication: Other and unspecified hyperlipidemia On: :22 Request LIPID PANEL (78983)Indication: Other and unspecified hyperlipidemia On: :22 Request TSH (81987)Indication: Acquired hypothyroidism On: : Request HEMOGLOBIN GLYCLATED (HGB A1C) (17109)Indication: Abnormal glucose tolerance test On: :20 Request VITAMIN B-12 (CYANOCOBALAMIN) (51972)Indication: Other vitamin B12 deficiency anemia On: :17 Request Vitamin D Hydroxy (51070)Indication: Vitamin D deficiency, unspecified On: 6-Opa-355535:21 Request VITAMIN B-12 (CYANOCOBALAMIN) (06230)Indication: Other vitamin B12 deficiency anemia On: :20 Request LIPID PANEL (89024)Indication: Abnormal glucose tolerance test On: :20 Request CBC WITH MANUAL DIFF (60276)Indication: Abnormal glucose tolerance test On: :20 Request METABOLIC PANEL, COMPREHENSIVE (60145)Indication: Abnormal glucose tolerance test On: :20 Request METABOLIC PANEL, COMPREHENSIVE (44943)Indication: Abnormal glucose tolerance test On: 2-Wpt-163685:59 Request CBC WITH MANUAL DIFF (11126)Indication: Abnormal glucose tolerance test On: 7-Zjs-248872:59 Request Vitamin D Hydroxy (41866)Indication: Vitamin D deficiency, unspecified On: 1-Qmu-364435:59 Request VITAMIN B-12 (CYANOCOBALAMIN) (63387)Indication: Other vitamin B12 deficiency anemia On: 2-Zbc-520761:59 Request TSH (06370)Indication: Acquired hypothyroidism On: 0-Ibp-525794:58 Request LIPID PANEL (85235)Indication: Other and unspecified hyperlipidemia On: 3-Vvw-116137:58 Request CCP ANTIBODY (36903)Indication: Pain in unspecified joint On: 70-Crv-702433:22 Request VITAMIN B-12 (CYANOCOBALAMIN) (94295)Indication: Other vitamin B12 deficiency anemia On: 8-Fes-434493:10 Request Vitamin D Hydroxy (71667)Indication: Vitamin D deficiency, unspecified On: 3-Ecm-475507:10 Request MICROALBUMIN: CREATININE RATIO (54805) AND (14506)Indication: Uncontrolled type II diabetes mellitus On: 0-Bca-670392:10 Request CBC WITH MANUAL DIFF (68252)Indication: Uncontrolled type II diabetes mellitus On: 2-Fat-150546:10 Request METABOLIC PANEL, COMPREHENSIVE (33887)Indication: Benign essential hypertension (Renamed from Benign essential HTN) On: 5-Uku-661540:09 Request LIPID PANEL (91801)Indication: Other and unspecified hyperlipidemia On: 1-Nof-488372:09 Request TSH (47697)Indication: Acquired hypothyroidism On: 5-Avx-970537:39 Request VITAMIN B-12 (CYANOCOBALAMIN) (19596)Indication: Other vitamin B12 deficiency anemia On: 6-Msu-922004:37 Request HEPATIC FUNCTION PANEL (69670)Indication: Other and unspecified hyperlipidemia On: 1-Dco-669349:36 Request LIPID PANEL (91908)Indication: Other and unspecified hyperlipidemia On: 5-Dxj-786443:36 Request Vitamin D Hydroxy (14113)Indication: Vitamin D deficiency, unspecified On: :36 Request METABOLIC PANEL, COMPREHENSIVE (43692)Indication: Benign essential hypertension (Renamed from Benign essential HTN) On: 7-Dup-785081:35 Request LIPID PANEL (82290)Indication: Other and unspecified hyperlipidemia On: :35 Request Vitamin D Hydroxy (10473)Indication: Vitamin D deficiency, unspecified On: 1-Bsv-882850:30 Request Vitamin D Hydroxy (29309)Indication: Vitamin D deficiency, unspecified On: 14-Lqr-644555:10 Request MICROALBUMIN: CREATININE RATIO (63482) AND (61911)Indication: Uncontrolled type II diabetes mellitus On: 49-Gdk-549170:07 Request LIPID PANEL (26554)Indication: Other and unspecified hyperlipidemia On: 64-Ytz-853567:07 Request TSH (68145)Indication: Acquired hypothyroidism On: 37-Rcz-031388:07 Request VITAMIN B-12 (CYANOCOBALAMIN) (58104)Indication: Other vitamin B12 deficiency anemia On: 07-Axp-421301:42 Request Vitamin D Hydroxy (82642)Indication: Vitamin D deficiency, unspecified On: 50-Jgq-741884:50 Request IRON BINDING CAPACITY (TIBC) (61469)Indication: Iron (Fe) deficiency anemia On: 33-Xdp-999431:50 Request LDH (LD) (LACTATE DEHYDROGENASE) (75366)Indication: Iron (Fe) deficiency anemia On: 22-Iob-838008:50 Request FERRITIN (62419)Indication: Iron (Fe) deficiency anemia On: 11-Kkp-964137:50 Request IRON (48789)Indication: Iron (Fe) deficiency anemia On: 04-Wlh-584964:50 Request CBC WITH MANUAL DIFF (17526)Indication: Iron (Fe) deficiency anemia On: 67-Ibu-702074:50 Request HEPATIC FUNCTION PANEL ([id number])Indication: Other and unspecified hyperlipidemia On: 11-Hga-908192:44 Request LIPID PANEL (15599)Indication: Other and unspecified hyperlipidemia On: :44 Request CBC WITH MANUAL DIFF ([id number])Indication: Other vitamin B12 deficiency anemia On: 2-Pos-456360:54 Request MICROALBUMIN: CREATININE RATIO (10778) AND (65647)Indication: Glucose intolerance (no malabsorption) On: :54 Request METABOLIC PANEL, COMPREHENSIVE (98885)Indication: HYPERTENSION, NOS On: :54 Request LIPID PANEL (75453)Indication: Other and unspecified hyperlipidemia On: :53 Request VITAMIN B-12 (CYANOCOBALAMIN) (98948)Indication: Other vitamin B12 deficiency anemia On: :53 Request IRON ([id number])Indication: Iron (Fe) deficiency anemia On: :53 Request Vitamin D Hydroxy (11634)Indication: Osteopenia On: 4-Cvx-592988:49 Request Methylmalonic acid, serum 00809Gomkjpktlk: Other vitamin B12 deficiency anemia On: 25-Ynz-197923:03 Request VITAMIN B-12 (CYANOCOBALAMIN) (70944)Indication: Other vitamin B12 deficiency anemia On: 39-Vme-601110:03 Request TSH (71657)Indication: Acquired hypothyroidism On: :03 Request HgA1C , Office (01928)Indication: Abnormal glucose tolerance test On: 1-Jgm-487442:06 Request TSH ([id number])Indication: Acquired hypothyroidism On: :35 Request LIPID PANEL ([id number])Indication: Other and unspecified hyperlipidemia On: 27-Vbw-18207:35 Request METABOLIC PANEL, COMPREHENSIVE (36657)Indication: SOB (shortness of breath) on exertion On: :34 Request CBC WITH MANUAL DIFF ([id number])Indication: SOB (shortness of breath) on exertion On: :34 Request TSH ([id number])Indication: Acquired hypothyroidism On: 9-Ldh-106298:46 Request Comments: do in 6 weeks TSH (87430)Indication: Acquired hypothyroidism On: 04-Cfn-046007:15 Request Comments: DO IN 6 WEEKS WITH MEDICATION CHANGE TSH (02051)Indication: Other malaise and fatigue On: 33-Vmv-82254:49 Request Iron Binding Capacity (TIBC) (90559)Indication: Iron (Fe) deficiency anemia On: :43 Request Ferritin (11785)Indication: Iron (Fe) deficiency anemia On: :43 Request Iron (39480)Indication: Iron (Fe) deficiency anemia On: :43 Request HEPATIC FUNCTION PANEL (10023)Indication: Mixed hyperlipidemia On: :42 Request LIPID PANEL (67058)Indication: Mixed hyperlipidemia On: :42 Request Comments: do in 3 months HEPATIC FUNCTION PANEL (57291)Indication: Mixed hyperlipidemia On: 7-Ofy-476671:11 Request LIPID PANEL (35505)Indication: Mixed hyperlipidemia On: 1-Wpy-972432:11 Request Comments: do in 3 mo TSH (56578)Indication: Acquired hypothyroidism On: :23 Request VITAMIN B-12 (CYANOCOBALAMIN) (91188)Indication: Anemia, unspecified On: :23 Request LDH (LD) (LACTATE DEHYDROGENASE) (78193)Indication: Anemia, unspecified On: :23 Request RETICULOCYTE COUNT MANUL (65002)Indication: Anemia, unspecified On: :23 Request IRON BINDING CAPACITY (TIBC) (47550)Indication: Anemia, unspecified On: :23 Request IRON ([id number])Indication: Anemia, unspecified On: :23 Request FOLIC ACID SERUM (51559)Indication: Anemia, unspecified On: :23 Request HAPTOGLOBIN ([id number])Indication: Anemia, unspecified On: :23 Request FERRITIN ([id number])Indication: Anemia, unspecified On: :23 Request CBC, PLATELETS & AUT DIFF (33304)Indication: Anemia, unspecified On: :23 Request HgA1C , Office (68544)Indication: Abnormal glucose tolerance test On: 54-Oxq-686450:03 Request CBC with manual diff ([id number])Indication: Anemia, unspecified On: 52-Waf-353741:49 Request HgA1C , Office (15214)Indication: Abnormal glucose tolerance test On: 45-Dty-758500:30 Request Comments: controlled URINALYSIS W/O MICRO (63302)Indication: HYPERTENSION, NOS On: 58-Bjx-139294:03 Request TSH ([id number])Indication: Acquired hypothyroidism On: :03 Request MICROALBUMIN URINE QUANT (41287)Indication: HYPERTENSION, NOS On: 72-Krq-077952:03 Request METABOLIC PANEL, COMPREHENSIVE (12945)Indication: HYPERTENSION, NOS On: :03 Request LIPID PANEL (11262)Indication: HYPERTENSION, NOS On: :03 Request CBC WITH MANUAL DIFF ([id number])Indication: HYPERTENSION, NOS On: :03 Request Planned Encounters Medical; 3 Week FU - On: 29-Aug-2018 11:15 [facility] Doris Navarro DO, DO, Kathleen Fearon DO, Kathleen Planned Procedures Radiology - Lumbar SpineBy: Melanie On: 24-Jun-2018 Intent Doris KEBEDE DO, Kathleen Fearon DO, Kathleen Aerosol Treatment ([id number])By: On: 14-Apr-2018 Intent Thelma Sofia Comments: Lungs clear after albuterol aerosol treatment Ultrasound - LiverBy: Melanie KEBEDE, On: 21-Nov-2017 Intent Doris Jay DO, DO, Kathleen B 12 Injection, 1000 mcg (J3420)By: On: 21-Nov-2017 Intent Doris Navarro DO, DO, Comments: Vitamin b12 1000mcg injection lot:[id number]:04/2019L DELT IMpt tolerated well CARYN DUMONT DO, Kathleen PHYSICAL THERAPY ([id number])By: [place] On: 28-Oct-2017 Intent Thelma Radiology - Hip - LeftBy: [place], On: 28-Oct-2017 Intent Thelma Aerosol Treatment (09288)By: Melanie On: 07-Aug-2017 Doris Candelaria DO, DO, Kathleen Comments: more a/e less nois e Doris Navarro DO Spirometry ([id number])By: Melanie KEBEDE, On: 07-Aug-2017 Intent Doris Melanie DO, Doris Melanie Comments: really poor techniq DO, Doris Radiology - Chest- PA and LatBy: On: 07-Aug-2017 Intent Melanie DO, Doris Melanie DO, Doris Melanie DO, Doris IV Needle placement (56641)By: On: 02-Aug-2017 Intent Melanie DO, Doris Melanie DO, Doris Melanie DO, Doris INFUSION, NORMAL SALINE SOLUTION , On: 02-Aug-2017 Intent 1000 CC (Special Coverage Comments: lot:[id number]:02-26-2019rte:right anticubdose:1000ml given by:david Snow LPN Instructions Apply. See MCM: 2048) (J7030)By: Doris Navarro DO Melanie DO, Doris Melanie DO, Doris INFUSION, NORMAL SALINE SOLUTION , On: 01-Aug-2017 Intent 1000 CC (Special Coverage Comments: lot:[id number]:02-26-2019rte:IV left anticubdose:1000ml NS given by:david Snow, CARYN Instructions Apply. See MCM: 2048) (J7030)By: Marcia Britton Aerosol Treatment ([id number])By: Melanie On: 01-Aug-2017 Intent DO, Doris Melanie DO, Doris Comments: more a/e less junky sounding Doris Navarro DO PNEUM VAC ADLT/IMUMNOSPR, SBC/INTRM On: 25-Apr-2017 Intent ([id number])By: Doris Navarro DO Comments: 0.5cc [place] lot [id number] exp 09/05/18 Melanie KEBEDE, Doris Jay DO INTENSIVE BEHAVIORAL THERAPY TO On: 25-Apr-2017 Intent REDUCE CARDIOVASCULAR DISEASE RISK, INDIVIDUAL, [id number], ANNUAL, 15 MINUTES (G0446)By: Doris Navarro DO Melanie DO, Doris Melanie DODoris [id number] BEHAVIORAL COUNSELING On: 25-Apr-2017 Intent FOR OBESITY, 15 MINUTES (G0447)By: Melanie DO, Doris Melanie DO, Doris Melanie DO, Doris B 12 Injection, 1000 mcg (J3420)By: On: 25-Apr-2017 Intent Melanie DO, Doris Melanie DO, Comments: 1 ml given lt arm lot [id number] exp 03/15 Doris Melanie DO, Doris ELECTROCARDIOGRAM, COMPLETE (ECG) On: 25-Apr-2017 Intent ([id number])By: Doris Navarro DO Comments: nsr no acute chg Melanie DO, Doris Melanie DO, Doris B 12 Injection, 1000 mcg (J3420)By: On: 14-Mar-2017 Intent Melanie DO, Doris Melanie DO, Comments: lot [id number] 09/16left [id number] mcgas, CASING PULLER Doris Melanie DO, Doris B 12 Injection, 1000 mcg (J3420)By: On: 31-Dec-2016 Intent Melanie DO, Doris Melanie DO, Comments: [id number], CASING PULLER Doris Melanie DO, Doris B 12 Injection, 1000 mcg (J3420)By: On: 20-Sep-2016 Intent Melanie DO, Doris Melanie DO, Comments: lot:[id number]: 11/13Dose: 1,000 mcgSite: R dltdLocation; IMby:, CASING PULLER Doris Melanie DO, Doris Solu- Medrol Injection, 125mg On: 20-Aug-2016 Intent (J2930)By: Doris Navarro DO Comments: lot: [id number]: 01/14site/route: LGM/IMamt:2mLVIS signed when applicableChelsea, SAMPLES AND REPAIRS PREPARER Melanie DO, Doris Melanie DO, Doris Aerosol Treatment (59033)By: Melanie On: 20-Aug-2016 Intent DO Doris Melanie DO Doris Comments: albulterol 0.83%relistedned nad more a/e less noise Melanie DO, Doris B 12 Injection, 1000 mcg (J3420)By: On: 20-Aug-2016 Intent Melanie DO, Doris Melanie DO, Comments: lot: [id number]: 18site/route: L del/IMamt: 1mLVIS signed when applicableChehenry ford [facility], [facility] Doris Melanie DO, Doris Spirometry (58210)By: Melanie KEBEDE, On: 16-Aug-2016 Intent Doris Melanie DO, Doris Melanie Comments: ok stable - DO, Doris Aerosol Treatment ([id number])By: Melanie On: 16-Aug-2016 Intent DO, Doris Melanie DO, Doris Comments: albulterol 0.83%more a.e stil some niose in RUL -- junky and easy to cough Melanie DO, Doris Solu- Medrol Injection, 125mg On: 16-Aug-2016 Intent (J2930)By: Doris Navarro DO Comments: lot [id number] mgright gm, IMas CASING PULLER Melanie DO, Doris Melanie DO, Doris B 12 Injection, 1000 mcg (J3420)By: On: 20-Jul-2016 Intent Melanie DO, Doris Melanie DO, Comments: B12lot:6202exp:ite:rt deltroute:IMdose:1mlD.HAY Valentineen Melanie DO, Doris Solu- Medrol Injection, 125mg On: 20-Jul-2016 Intent (J2930)By: Doris Navarro DO Comments: lot: [id number]: 01/14site/route: RGM/IMamt: 2mLVIS signed when applicableSavannah, [facility] Melanie DO, Doris Melanie DO, Doris Aerosol Treatment ([id number])By: Melanie On: 20-Jul-2016 Intent DO, Doris Melanie DO, Doris Comments: less wheeze good a/e- less irritability with breathing Melanie DODoris Radiology - Chest- PA and LatBy: On: 20-Jul-2016 Intent Melanie DO, Doris Melanie DO, Doris Melanie DO, Doris Spirometry ([id number])By: Melanie KEBEDE, On: 20-Jul-2016 Intent Doris Melanie DO Doris Melanie Comments: mild restriction =- poor curve and technique DO, Doris ELECTROCARDIOGRAM, COMPLETE (ECG) On: 20-Jul-2016 Intent ([id number])By: Melanie DO, Doris Comments: sinus braden no acute chg Melanie DO, Doris Melanie DO, Doris B 12 Injection, 1000 mcg (J3420)By: On: 29-May-2016 Intent Melanie DO, Doris Melanie DO, Comments: Lot:[id number]:11/13Dose:1mlRoute:IMSite:r armGiven By:SAADIA signed Doris Melanie DO, Doris Flu Vaccine (Quadrivalent) 46962Cp: On: 29-May-2016 Intent Melanie DO, Doris Melanie DO, Comments: Lot:[id number]:01/25/17Dose:0.5mLRoute:IMSite:L DltdGiven By:SAADIA signed Doris Melanie DO, Doris B 12 Injection, 1000 mcg (J3420)By: On: 21-May-2016 Intent Melanie DO, Doris Melanie DO, Doris Melanie DO, Doris B 12 Injection, 1000 mcg (J3420)By: On: 18-May-2016 Intent Melanie DO, Doris Melanie DO, Comments: B12lot:6185exp:ite:rt deltroute:IMdose:1mlD.HAY Valentin Doris Melanie DO, Doris B 12 Injection, 1000 mcg (J3420)By: On: 11-May-2016 Intent Melanie DO, Doris Melanie DO, Comments: lot [id number] mcgleft dltdas, CASING PULLER Doris Melanie DO, Doris B 12 Injection, [...] ite/route: R del/IMamt: 1mLVIS signed when applicableChelsea, SAMPLES AND REPAIRS PREPARER Doris Melanie DO, Doris B 12 Injection, 1000 mcg (J3420)By: On: 13-Apr-2016 Intent Mckinley Valentin Comments: B12lot:6185exp:ite:lt deltroute:IMdose:1mlD.HAY Valentin INTENSIVE BEHAVIORAL THERAPY TO On: 09-Apr-2016 Intent REDUCE CARDIOVASCULAR DISEASE RISK, INDIVIDUAL, [id number], ANNUAL, 15 MINUTES (G0446)By: Melanie DO, Doris Melanie DO, Doris Melanie DO, Doris MEVY-HM-ZXPS BEHAVIORAL COUNSELING On: 09-Apr-2016 Intent FOR OBESITY, 15 MINUTES (G0447)By: Melanie DO, Doris Melanie DO, Doris Melanie DO, Doris MAMMOGRAM, SCREENING, BOTH BREAST On: 09-Apr-2016 Intent ([id number])By: Melanie DO, Doris Melanie DO, Doris Melanie DO, Doris DEXA SCAN AXIAL SKELETON (45479)By: On: 09-Apr-2016 Intent Melanie DO, Doris Melanie DO, Doris Melanie DO, Doris B 12 Injection, 1000 mcg (J3420)By: On: 06-Apr-2016 Intent Melanie DO, Doris Melanie DO, Comments: Lot:[id number]:11/13Dose:1mlRoute:IMSite:l juanjoGiven By:SAADIA signed Doris Melanie DO, Doris B 12 Injection, 1000 mcg (J3420)By: On: 30-Mar-2016 Intent Melanie DO, Doris Melanie DO, Comments: Lot:[id number]:11/13Dose:1mlRoute:IMSite:l armGiven By:JKMVIS signed Doris Melanie DO, Doris B 12 Injection, 1000 mcg (J3420)By: On: 22-Mar-2016 Intent Melanie DO, Doris Melanie DO, Comments: 1 ml rt arm lot [id number] exp 11/13 Doris Melanie DO, Doris B 12 Injection, 1000 mcg (J3420)By: On: 16-Mar-2016 Intent Melanie DO, Doris Melanie DO, Comments: Lot:[id number]:11/13Dose:1mlRoute:IMSite:l arm Given By:JKMVIS signed Doris Melanie DO, Doris B 12 Injection, 1000 mcg (J3420)By: On: 09-Mar-2016 Intent Melanie DO, Doris Melanie DO, Comments: 0.5 cc given im lt arm lot [id number] exp 11/13 Doris Melanie DO, Doris B 12 Injection, 1000 mcg (J3420)By: On: 24-Feb-2016 Intent Melanie DO, Doris Melanie DO, Comments: Lot:[id number]:12/13Dose:1mlRoute:IMSite:l armGiven By:JKMVIS signed Doris Melanie DO, Doris B 12 Injection, 1000 mcg (J3420)By: On: 17-Feb-2016 Intent Melanie DO, Doris Melanie DO, Comments: Lot:[id number]:12/13Dose:1mlRoute:IMSite:r armGiven By:JKMVIS signed Doris Melanie DO, Doris B 12 Injection, 1000 mcg (J3420)By: On: 07-Feb-2016 Intent Melanie DO, Doris Melanie DO, Comments: Lot:[id number]:10/2017Dose:1mlRoute:IMSite:l armGiven By:JKMVIS signed Doris Melanie DO, Doris B 12 Injection, 1000 mcg (J3420)By: On: 26-Jan-2016 Intent Melanie DO, Doris Melanie DO, Comments: B12lot:5200exp:05/14site:lt deltroute:IMdose:1mlD.HAY Valentinrajinder Navarro , Doris Echo CompleteBy: Alexy DO Maggie A On: 28-Dec-2015 Intent B 12 Injection, 1000 mcg (J3420)By: On: 05-Dec-2015 Intent Fast DO Maggie A Comments: Lot:[id number]:12/13Dose:1mlRoute:IMSite:r arm Given By:SAADIA signed Echo CompleteBy: Camelia Tracey DOa A On: 05-Dec-2015 Intent Radiology - Chest- PA and LatBy: On: 07-Sep-2015 Intent Fast DO, Maggie A B 12 Injection, 1000 mcg (J3420)By: On: 19-Aug-2015 Intent Fast DO Maggie A Comments: Lot:[id number]:04/14Dose:1mlRoute:IMSite:l armGiven By:SAADIA signed Aerosol Treatment (78491)By: Alexy On: 03-Aug-2015 Intent DO Maggie A B 12 Injection, 1000 mcg (J3420)By: On: 17-May-2015 Intent Alexy DO Maggie A Comments: Lot:[id number]:11/12Dose:1mlRoute:IMSite:l armGiven By:SAADIA signed Flu Vaccine (Quadrivalent) [id number]: On: 17-May-2015 Intent Camelia Tracey DOa A Comments: lot [id number]: 01/26/2016site/route L sol, IMamt 0.5mlVIS and ABN signed when applicableChelsea, CMAFM4 ADMINISTRATION OF INFLUENZA VIRUS On: 17-May-2015 Intent VACCINE (G0008)By: Camelia Tracey DOa A B 12 Injection, 1000 mcg (J3420)By: On: 15-Feb-2015 Intent Kanika Georges Comments: Lot:[id number]:11.16Route:IMSite:R deltoidDose: 1 mLgiven by: Kanika Georges CMA DANIEL (Ankle Brachial Index) On: 08-Feb-2015 Intent (21678)By: Camelia Tracey DOa A Radiology - Lumbar SpineBy: Alexy DO, On: 08-Feb-2015 Intent Maggie A Ultrasound - ThyroidBy: Alexy KEBEDE, On: 09-Nov-2014 Intent Maggie A B 12 Injection, 1000 mcg (J3420)By: On: 09-Nov-2014 Intent Alexy DO Maggie A Comments: lot [id number] mcgleft CARYN Chaudhary Radiology - Chest- PA and LatBy: On: 13-Sep-2014 Intent Fast DO Maggie A Comments: call stat Pulse Oximetry (02600)By: Alexy KEBEDE, On: 13-Sep-2014 Intent Maggie A Comments: 97% Inhaler Demonstration (60184)By: On: 07-Sep-2014 Intent Kimberley Loyd CNP Radiology - Chest- PA and LatBy: On: 14-Jul-2014 Intent Alexy DO Maggie A Comments: call rsults Spirometry (39595)By: Alexy KEBEDE, On: 14-Jul-2014 Intent Maggie A Comments: good effort and curve mild rest /obst Prevnar 13 (85156)By: Alexy KEBEDE, On: 30-Jun-2014 Intent Maggie A Comments: lot [id number] 09/2015location L armroute imgiven by - msmithVIS and/or ABN signed MAMMOGRAM, SCREENING, BOTH BREAST On: 14-Apr-2014 Intent (07197)By: Maggie Tracey DO B 12 Injection, 1000 mcg (J3420)By: On: 14-Apr-2014 Intent Maggie Tracey DO A Comments: Lot #:[id number] date:mount given:1mlRoute: IMSite given: left deltoidGiven by: HAY Zavala Cartoid DopplerBy: Maggie Tracey DO A On: 14-Apr-2014 Intent Eprescribed prescriptions (G8553)By: On: 07-Oct-2013 Intent Alexy KEBEDE Maggie A DXA, BONE DENSITY, AXIAL SKELETON On: 20-Jul-2013 Intent (18956)By: Magige Tracey DO A Comments: aug Pelvic and Breast, Medicare On: 20-Jul-2013 Intent (G0101)By: Maggie Tracey DO Cartoid DopplerBy: Fast DO Maggie A On: 07-Jul-2013 Intent Eprescribed prescriptions (G8553)By: On: 07-Jul-2013 Intent Raiza Ortiz FLU VAC, SPLIT, >3 YEARS, INTRAMUSC On: 04-May-2013 Intent (80122)By: Maritza Cantor Comments: lot [id number] 2014site/route L sol, IMamt 0.5mlVIS and ABN signed when applicableSIMI Salas ADMINISTRATION OF INFLUENZA VIRUS On: 04-May-2013 Intent VACCINE (G0008)By: Maritza Cantor Radiology - Hip - LeftBy: Alexy KEBEDE, On: 07-Apr-2013 Intent Maggie Armstrong Eprescribed prescriptions (G8553)By: On: 07-Apr-2013 Intent Raiza Ortiz Eprescribed prescriptions (G8553)By: On: 05-Jan-2013 Intent Raiza Ortiz Spirometry (05952)By: Alexy KEBEDE, On: 01-Dec-2012 Intent Maggie Armstrong Comments: good effort and curve normal Radiology - Chest- PA and LatBy: On: 01-Dec-2012 Intent Maggie Tracey DO Comments: stat call wet read Eprescribed prescriptions (G8553)By: On: 01-Dec-2012 Intent Raiza Ortiz Pulse Oximetry (65971)By: Angel, On: 01-Dec-2012 Intent Raiza Comments: 98% Eprescribed prescriptions (G8553)By: On: 27-Nov-2012 Intent Melanie DO, Doris Melanie DO, Doris Melanie DO, Doris MAMMOGRAM, SCREENING, BOTH BREASTS On: 29-Sep-2012 Intent ([id number])By: Maggie Tracey DO EKG (79014)By: Raiza Ortiz On: 29-Sep-2012 Intent Comments: ekg- 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 axis and no acute st t wave changes Eprescribed prescriptions (G8553)By: On: 29-Sep-2012 Intent Raiza Ortiz Eprescribed prescriptions (G8553)By: On: 03-Sep-2012 Intent Raiza Ortiz Eprescribed prescriptions (G8553)By: On: 30-Jul-2012 Intent Raiza Ortiz B 12 Injection, 1000 mcg (J3420)By: On: 23-Jun-2012 Intent Maggie Tracey DO Comments: Lot:[id number]:Dose:1mlRoute:IMSite:L armGiven By:SAADIA signed Eprescribed prescriptions (G8553)By: On: 23-Jun-2012 Intent Raiza Ortiz 12 Injection, 1000 mcg (J3420)By: On: 25-Mar-2012 Intent Maricruz Rivera LPN Comments: Lot #[id number]-06/10Site-right deltoidDose-1 mlgiven by: Dani Rivera LPN Eprescribed prescriptions (G8553)By: On: 25-Mar-2012 Intent Maggie Tracey DO A FLU VAC, SPLIT, >3 YEARS, INTRAMUSC On: 25-Mar-2012 Intent (90706)By: Patsy Leslie LPN Comments: Lot/Exp: [id number], 12/2011Given in L Dltd, IMPrefilled SyringeBy CARYN Garner ADMINISTRATION OF INFLUENZA VIRUS On: 25-Mar-2012 Intent VACCINE (G0008)By: Patsy Leslie LPN Echo CompleteBy: Alexy KEBEDE Maggie A On: 07-Dec-2011 Intent B 12 Injection, 1000 mcg (J3420)By: On: 07-Dec-2011 [address] - OtherBy: Alexy DO Maggie A On: 03-Oct-2011 Intent Comments: get cta of carotid arteries TDAP VACCINE >7 IM (95139)By: On: 03-Oct-2011 Intent Raiza Ortiz B 12 Injection, 1000 mcg (J3420)By: On: 07-Sep-2011 Intent Raiza Ortiz Comments: Lot #[id number]-07/09Site-left deltoidDose-1 mlgiven by: Dani Rivera LPN Cartoid DopplerBy: Alexy DO Maggie A On: 07-Sep-2011 Intent Comments: in september DXA, BONE DENSITY, AXIAL SKELETON On: 07-Sep-2011 Intent (07943)By: Alexy DO Maggie A MAMMOGRAM, SCREENING, BOTH BREASTS On: 07-Sep-2011 Intent (23723)By: Fast DO Maggie A Aerosol Treatment (02560)By: Ciesa On: 08-Aug-2011 Intent Kimberley LOVE EKG (10070)By: Raiza Ortiz On: 06-Jun-2011 Intent Comments: ekg showed normal sinus rhythym, left axis, no acute st/t wave changes DXA, BONE DENSITY, AXIAL SKELETON On: 06-Jun-2011 Intent (22748)By: Maggie Tracey DO FLU VAC, SPLIT, >3 YEARS, INTRAMUSC On: 11-May-2011 Intent (90106)By: Maricruz Rivera LPN Comments: Lot #[id number]-03/20/12Site-left deltoidgiven by: Dani Rivera LPN B 12 Injection, 1000 mcg (J3420)By: On: 11-May-2011 Intent Maricruz Rivera LPN Comments: Lot #[id number]-3/13Site-right deltoidDose-1 mlgiven by: Dani Rivera LPN ADMINISTRATION OF INFLUENZA VIRUS On: 11-May-2011 Intent VACCINE (G0008)By: Maricruz Rivera LPN B 12 Injection, 1000 mcg (J3420)By: On: 05-Mar-2011 Intent Camelia Tracey DOa A Comments: Lot #1234Exp-3/13Site-left deltoidDose-1 mlgiven by: Dani Rivera LPN Eprescribed prescriptions (G8553)By: On: 05-Mar-2011 Intent Maggie Tracey DO A B 12 Injection, 1000 mcg (J3420)By: On: 07-Feb-2011 Intent Thelma Khan LPN Comments: 1ml given im lt dltd lot [id number] exp 3-13 Doppler Ultrasound OtherBy: Alexy KEBEDE, On: 24-Jan-2011 Intent Maggie A Comments: stat right leg- call wet read B 12 Injection, 1000 mcg (J3420)By: On: 24-Oct-2010 Intent Camelia Tracey DOa A Comments: Lot #:[id number] date:mount given:1mlRoute: IMSite given:left deltoidGiven by: HAY Zavala Cartoid DopplerBy: Camelia Tracey DOa A On: 24-Oct-2010 Intent Pap Smear, Medicare (Q0091)By: On: 05-Sep-2010 Intent Raiza Ortiz Pelvic and Breast, Medicare On: 05-Sep-2010 Intent (G0101)By: Raiza Ortiz PNEUM VAC ADLT/IMUMNOSPR, SBC/INTRM On: 03-Jul-2010 Intent (35549)By: Maggie Tracey DO Comments: Lot #[id number]-3//Site-left deltoidDose- 0.5mlgiven by:GAL ADMINISTRATION OF PNEUMOCOCCAL On: 03-Jul-2010 Intent VACCINE (G0009)By: Maggie Tracey DO MAMMOGRAM, SCREENING, BOTH BREASTS On: 03-Jul-2010 Intent (89120)By: Maggie Tracey DO B 12 Injection, 1000 mcg (J3420)By: On: 20-Jun-2010 Intent Maggie Tracey DO Comments: Lot #[id number]-12/07Site-left deltoidDose-1 mlgiven by:[facility] B 12 Injection, 1000 mcg (J3420)By: On: 10-May-2010 Intent Apoorva Calle Comments: Lot:[id number]:12/07Dose:1000mcg/1mlRoute:IMSite:right deltoid Given by: HAY Birch FLU VAC, SPLIT, >3 YEARS, INTRAMUSC On: 10-May-2010 Intent (71429)By: Apoorva Calle Comments: Lot:[id number]:10/2010Dose:0.5mlRoute:IMSite:Left Deltoid Given by: HAY Birch ADMINISTRATION OF INFLUENZA VIRUS On: 10-May-2010 Intent VACCINE (G0008)By: Apoorva Calle Doppler Ultrasound OtherBy: Alexy KEBEDE, On: 12-Apr-2010 Intent Maggie A Comments: both legs stat- left leg swelling- call wet read Spirometry (64101)By: Alexy KEBEDE, On: 12-Apr-2010 Intent Maggie Nathaniel Comments: good effort and curve normal B 12 Injection, 1000 mcg (J3420)By: On: 05-Apr-2010 Intent Maggie Tracey DO Ultrasound - GallbladderBy: Alexy KEBEDE, On: 01-Feb-2010 Intent Maggie A IV Needle placement (56304)By: On: 10-Jan-2010 Intent Ana Guzman Comments: IV 22 gauge inserted in right antecubital on first attempt and 0.9 NSS running without difficulty-AW INFUSION, NORMAL SALINE SOLUTION , On: 10-Jan-2010 Intent 1000 CC (Special Coverage Instructions Apply. See MCM: 2049) (J7030)By: Kimberley Loyd CNP THER/PROPH/DIAG INJ, SC/IM On: 10-Jan-2010 Intent (66306)By: Kimberley Loyd CNP Radiology - Knee - Right - Weight On: 03-Jan-2010 Intent BearingBy: Maggie Tracey DO EKG (03747)By: Raiza Ortiz On: 03-Jan-2010 Intent Comments: ekg showed normal sinus rhythym, left axis, no acute st/t wave changes Aerosol Treatment (77768)By: Evert On: 19-Oct-2009 Intent Kimberley LOVE Cartoid DopplerBy: Maggie Tracey DO On: 14-Jun-[address] - Brain/HeadBy: Maggie Tracey DO On: 06-Jun-2009 Intent MAMMOGRAM, SCREENING, BOTH BREASTS On: 06-Jun-2009 Intent (20644)By: Maggie Tracey DO DXA, BONE DENSITY, AXIAL SKELETON On: 06-Jun-2009 Intent (02456)By: aMggie Tracey DO FLU VAC, SPLIT, >3 YEARS, INTRAMUSC On: 12-May-2009 Intent (69993)By: Maricruz Rivera LPN Comments: Lot #[id number]-left deltoidgiven by:[facility] ADMINISTRATION OF INFLUENZA VIRUS On: 12-May-2009 Intent VACCINE (G0008)By: Maricruz Rivera LPN Radiology - Hand - RightBy: Alexy KEBEDE, On: 26-Jan-2009 Intent Maggie Armstrong Radiology - Wrist - RightBy: Alexy On: 26-Jan-2009 Intent Maggie KEBEDE Comments: call wet read Pulse Oximetry (91047)By: Alexy KEBEDE, On: 27-Dec-2008 Intent Maggie Armstrong Comments: 98 Inhaler Demo (23721)By: Alexy KEBEDE, On: 27-Dec-2008 Intent Maggie Armstrong Spirometry ([id number])By: Alexy KEBEDE, On: 27-Dec-2008 Intent Maggie A Comments: good effort and curve has small airways diminished Radiology - Chest- PA and LatBy: On: 27-Dec-2008 Intent Maggie Tracey DO Echo CompleteBy: Alexy KEBEDE Maggie A On: 08-Nov-2008 Intent Comments: elevated bp - increase patricia EKG ([id number])By: Maggie Tracey DO A On: 08-Nov-2008 Intent Comments: ekg showed normal sinus rhythym, leftl axis, no acute st/t wave changes rsr unchanged Bio Z ([id number])By: Maggie Tracey DO A On: 08-Nov-2008 Intent Inhaler Demo ([id number])By: Melanie KEBEDE, On: 02-Sep-2008 Intent Doris Melanie DO, Doris Melanie DO, Doris Aerosol Treatment ([id number])By: Melanie On: 02-Sep-2008 Intent Doris KEBEDE Melanie DODoris Comments: less echoey -- better less cough Doris Navarro DO EKG ([id number])By: Doris Navarro DO On: 16-Dec-2007 Intent Melanie DO, Doris Melanie DO, Comments: NSR NO ACUTE CHANGES Doris B 12 Injection, 1000 mcg ([id number])By: On: 13-Nov-2007 Intent Thelma Khan LPN Comments: 1000mcg/ml 1 ml given im lt dltd lot [id number] exp 07-06. Pt tolerated well. B 12 Injection, 1000 mcg (J3420)By: On: 30-Jul-2007 Intent Doris Navarro DO Melanie DO, Doris Melanie DO, Doris EXCISION BGN LSN TRNK/ARM/LEG On: 09-Jul-2007 Intent 0.6-1.0 CM ([id number])By: Kimberley Loyd CNP BIOPSY OF SKIN LESION, SINGLE On: 09-Jul-2007 Intent ([id number])By: Kimberley Loyd CNP SHAVE SKIN LESION, TRUNK/ARM/LEG On: 02-Jul-2007 Intent ([id number])By: Kimberley Loyd CNP BIOPSY OF SKIN LESION, SINGLE On: 02-Jul-2007 Intent ([id number])By: Kimberley Loyd CNP B 12 Injection, 1000 mcg (J3420)By: On: 02-Jul-2007 Intent Lashonda Lee LPN FLU VAC, SPLIT, >3 YEARS, INTRAMUSC On: 04-Jun-2007 Intent ([id number])By: Jing Cabello RN Comments: Lot #: [id number] date: 01/03Amount given: 0.5 MLRoute: IMSite given: Left deltoidGiven by: Nathaniel Beal LPN IMMUNIZ ADMNIN, 1 VAC, SNGL/COMBO On: 04-Jun-2007 Intent ([id number])By: Jing Cabello RN B 12 Injection, 1000 [...] Injection, 1000 mcg (J3420)By: On: 28-Jan-2007 Intent Doris Navarro DO, DO, Doris Melanie DO, Doris Ultrasound - GallbladderBy: Melanie On: 18-Oct-2006 Intent DO, Doris Melanie DO, Doris Melanie DO, Doris INFUSION, NORMAL SALINE SOLUTION , On: 18-Oct-2006 Intent 250 CC (Special Coverage Comments: GAVE 1 LITER Instructions Apply. See MCM: [id number]) ([id number])By: Melanie DO, Doris Melanie DO, Doris Melanie DO, Doris IV Infusion ([id number])By: Melanie DO, On: 18-Oct-2006 Intent Doris Melanie DO, Doris Melanie DO, Doris EKG ([id number])By: Melanie DO, Doris On: 10-Oct-2006 Intent Melanie [...] DO, Doris Instructions Name Dates Details BMI 34.0-34.9,adult : How to access health information online Indication: BMI 34.0-34.9,adult BMI 34.0-34.9,adult : How to access health information online - Detail Indication: BMI 34.0-34.9,adult BMI 34.0-34.9,adult : Patient Instructions Indication: BMI 34.0-34.9,adult Nonsmoker : How to access health information [...] II diabetes mellitus Encounters Office Visit On: 15-Aug-2018 10:49 Encounter Reason: Shingles - The onset of the shingles has been sudden and has been occurring in a persistent pattern for 1 week. The course has been constant. The shingles is characterized as raised above the skin. The End: 15-Aug-2018 11:58 rash was first seen on the abdomen (rt sdie of back). There has been no progression of the rash. The symptoms have been associated with pain.Encounter Diagnosis: Nonsmoker, BMI 34.0-34.9,adult, Herpes zoster without complication [facility] Office Visit On: 31-Jul-2018 12:34 Encounter Reason: [...] The patient does have durable power of district attorney and living will. Other providers contributing [...] 13 steps at home. I was at [facility] for 3 days in ICU I broke [...] the patient is following up for inc tammy All identified problems below, blood sugar issues, [...] The patient does have durable power of district attorney and living will. The patient has [...] and she off pravastatin and went to [place] and now on 5 mg of crestor- and tolerated she got leg pain and weakness on pravachol- - she got good billof health on stroke and vascular in [place]- --bp is good and cough gone and [...] or put handrails in bathroom. The pat ient has completed the following preventative measures: PAP smear (2011), mammography (2013) and colonoscopy (unsure of timing). The patient does have durable power of district attorney and living will. The damián ent [...] since going to the urgent care at [facility]- on atb yet but will [...] feels good- bp is great- went to [facility] for vascular check and said ok- [...] The patient does have durable power of district attorney and living will. The patient has [...] not home- no gerd - went to [place] for artery checks and doing ok there- [...] laboratory test results: [facility] Shruthi Quinones- ??head of [...] visit: note: (stroke she was at [facility] x 5days released on saturday05/22/12 to 05/27/12). The patient feels well with minor complaints, has decreased energy End: 29-May-2012 14:12 level and is sleeping well. Patient has been compliant with instructions. Current medication use: compliant with dosing regimen. Patient sleeps 7 hours per night. Nutrition: balanced diet and supplement al vitamins. [facility]: [facility] (434.91), Benign essential hypertension (401.1), Diabetes type II,controlled no comp (250.00), Hypothyroidism (244.9), Carotid stenosis (433.10) [facility] Office Visit On: 22-May-2012 10:33 Encounter Reason: Follow up hospital - Reason for ER visit: note: (TIA. ??Patient was seen by [facility] ER x 3 times last week and then sent to [facility] for psych eval.). 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
--- OUTSIDE RECORDS SUMMARY | 2018-10-18 13:29 | XMS RPT_ITS | Continuity of Care Document ---
:1940 Author Organization [facility] Address [address] [facility] [address] [place] [address] Phone Care Team Providers Name Role Phone Doris Navarro DO Unavailable Camacho Serrano Unavailable Flakito Morales Unavailable [facility], [facility] Unavailable Marcello Stein Unavailable Sal [...] artery stenosis (I65.23, 433.10) Comments: goes to [facility] yearly to follow Status: Active [...] related to fatty liver -- did nutrition psychotherapist counselor and wt loss / metformin and [...] KathleenFearon DO, Kathleen Start : 24-Jul-2018 Active Comments:ceqsbP21.90 TraZODone HCl 100 MG Oral Tablet 1-1/2 Tablet qhs for 0 days Quantity: 80 {Tablet} Refills: 3 Ordered:12-Dec-2017 Arnold Navarro DO, DO, KathleenFearon DO, Kathleen Start : 12-Dec-2017 Active Albuterol Sulfate (2.5 MG/3ML) 0.083% Inhalation Nebulization Solution 1 (one) Nebulized Soln Nebulized Soln q 6hrs, prn for 30 days Quantity: 120 {Nebule} Refills: 3 Ordered:08-Aug-2017 GAURAV Hinoojsa Start : 20-Jul-2016 End : 08-Aug-2017 Inactive [...] Start : 26-Sep-2016 End : 12-Dec-2017 Inactive Nondalton 5-325 MG Oral Tablet 1 q 4hrs [...] : 07-Sep-2014 End : 13-Sep-2014 Discontinued ERGOCALCIFEROL, 26579WYRE (Oral Capsule) 1 (one) Capsule q week [...] days Quantity: 10 {Tablet} Refills: 0 Ordered:05-Jan-2013 Maggie Tracey DO Start : 05-Jan-2013 End : 05-Jan-2013 Discontinued [...] Quantity: 30 {Tablet} Refills: 3 Ordered:19-Aug-2015 Alexy KEBEDE Maggie A Start : 19-Aug-2015 End : [...] End : 23-Jun-2012 Discontinued VITAMIN D (ERGOCALCIFEROL), 72955SIWB (Oral Capsule) 1 Capsule q week for 0 days Quantity: 12 {Capsule} Refills: 2 Ordered:19-Aug-2015 Raiaz Ortiz Start : 07-Apr-2013 End : 19-Aug-2015 Discontinued VITAMIN D, 86736TPTZ (Oral Capsule) 1 (one) Capsule q week [...] Discharge Instruction Result: Comments: See Note; NOTES: [facility] Medical Records Department [address] [facility] [place] [address] Discharge Instruction 07/16/18 1405 MR#: [id number] Acct: [id number] Name: MARICRUZ GRIGSBY Rep #: [id number] : 1940 78 From: Johnnie Baez MD [...] Primary Care Pro vider. Call Doctors Registry ([phone]) or report to the closest Emergency Room. Call 911 if necessary. 07/16/18 8813 <Electronically signed by Johnnie Baez MD> Date Johnnie Baez MD Cosigner Signature (If Indicated): Date CC: Doris Navarro DO 16-Jul-2018 Emergency Department Summary Result: Comments: See Note; NOTES: [facility] Medical Records Department [address] [place] [address] Emergency Department Summary 07/16/18 1249 MR#: [id number] Acct: [id number] Name: MARICRUZ GRIGSBY Rep #: [id number] : 1940 78 From: Johnnie Baez MD PCP: Doris Navarro DO Status: DEP ER - ER Visit Summary Date of Service: 07/16/18 Chief Complaint: Nausea, vomit ing and diarrhea. History of Present Illness: The patient is a 78 F past medical history of prior stroke, hypertension cqz-dmpnjst-wgertckuc diabetes. Patient states last 3-4 days she [...] secondary to viral gastroenteritis History of no j-eckqkzk-dnnttauel diabetes. This note was generated with PhotoRocketation software. It may contain incorrect words, spelling, [...] your Primary Care Provider. Call Doctors Registry ([phone]) or report to the closest Emergency Room. Call 911 if necessary. 07/16/18 1647 <Electronically signed by Johnnie Baez MD> Date Johnnie Baez MD Cosigner Signature ( If Indicated): Date CC: Doris Navarro DO 24-Jun-2018 L/S Spine Min 4 Views Result: Comments: See Note; NOTES: [facility] Imaging Services [address] [place] [address] L/S Spine Min 4 Views MR#: [id number] Acct: [id number] Name: MARICRUZ GRIGSBY Rep # : [id number] : 1940 F 78 From: Mack Soni MD PCP: Doris Navarro DO Status: REG CLI Study: L/S Spine Min 4 Views Date of Exam: 06/24/18 Exam# [id number] Ordering Dr: Doris Navarro DO SANDI DY: [...] Service support , CC: Doris Navarro DO Report Programmer: Signed 14-May-2018 Emergency Department Summary Result: Comments: See Note; NOTES: [facility] Medical Records Department [address] [place] [address] Emergency Department Summary 05/14/18 0908 MR#: [id number] Acct: [id number] Name: MARICRUZ GRIGSBY Rep #: [id number] : 1940 78 From: Zee Denise MD [...] family doctors she is re ferred to [facility] for the shoulder injury and she will return for change in symptoms and she is comfortable with this plan Treatment Plan: [] Disposition: [] Stable home Impression: [] Fall left rib fracture, left shoulder injury This note was generated with Altatech dictation software. It may contain incorrect words, spelling, and punctuation that were not noted in review of the [facility] rt prior to signing ED Disposition - Plan for ED Patient: Chief Complaint: Fall Referrals: Doris Navarro, DO [Primary Care Provider] - What to do if you have Problems For any increased pain, sh ortness of breath, bleeding, nausea or vomiting, chest pain, or any unexpected problems, contact your Primary Care Provider. Call Doctors Registry ([phone]) or report to the closest Emergency Room. Call 911 if necessary. 05/14/18 8230 <Electronically signed by Zee Denise MD> Date Zee Soriaignjoseph Signatur e (If Indicated): Date _ CC: Doris Navarro DO 14-May-2018 Discharge Instruction Result: Comments: See Note; NOTES: [facility] Medical Records Department [address] [facility] [place] [address] Discharge Instruction 05/14/18 1133 MR#: [id number] Acct: [id number] Name: MARICRUZ GRIGSBY Rep #: [id number] : 1940 78 From: Zee Denise MD PCP: Doris Navarro DO Status: REG ER ED Disposition - Plan for ED Patient: Chief Complaint: Fall Instructions: ED M echanical Fall, ED Fx Rib, ED Sprain Shoulder, ED Sling Prescriptions: Hydrocodone Bitart/Apap 5-325 [Nondalton 5MG-325MG] 1 tab PO Q6H PRN PRN 3 Days #10 tab PRN Reason: Pain Referrals: Doris Navarro DO [Primary Care Provider] - What to do if you have Problems For any increased pain, shortness of breath, bleeding, nausea or vomiting, chest pain, or any unexpected problems, contact your Primary Car e Provider. Call Doctors Registry ([phone]) or report to the closest Emergency Room. Call 911 if necessary. 05/14/18 1134 <Electronically signed by Zee Denise MD> Date ___ Zee Denise MD Cosigner Signature (If Indicated): Date CC: Doris Navarro DO 14-May-2018 Chest PA and Lateral Result: Comments: See Note; NOTES: [facility] Imaging Services [address] [place] [address] Chest PA and Lateral MR#: [id number] Acct: [id number] Name: MARICRUZ GRIGSBY Rep #: [id number] : 1940 F 78 From: Teo Wayne MD PCP: Doris Navarro DO Status: REG ER Study: Chest PA and Lateral Date of Exam: 05/14/18 Exam# [id number] Ordering Dr: Zee Denise MD STUDY: X-RAY [...] Teo Wayne MD at 10:11 EDT Tel [phone], HeadMix e support , CC: MD Sonam Denise; Doris Navarro DO Report Programmer: Signed 14-May-2018 Elbow min 3 Views Result: Comments: See Note; NOTES: [facility] Imaging Services [address] [place] [address] Elbow min 3 Views MR#: [id number] Acct: [id number] Name: MARICRUZ GRIGSBY Rep #: [id number] : 1940 F 78 From: Teo Wayne MD PCP: Doris Navarro DO Status: REG ER Study: Elbow min 3 Views Date of Exam: 05/14/18 Exam# [id number] Ordering Dr: Zee Denise MD STUD Y: [...] Teo Wayne MD at 10:12 EDT Tel [phone], Service support , CC: MD Sonam Denise; Doris Navarro DO Report Programmer: Signed 14-May-2018 Shoulder min 2 Views Result: Comments: See Note; NOTES: [facility] Imaging Services [address] [place] [address] Shoulder min 2 Views MR#: [id number] Acct: [id number] Name: MARICRUZ GRIGSBY Rep #: [id number] : 1940 F 78 From: Teo Wayne MD PCP: Doris Navarro DO Status: REG ER Study: Shoulder min 2 Views Date of Exam: 05/14/18 Exam# [id number] Ordering Dr: Zee Denise MD STUDY: X-RAY [...] Wayne MD at 11:02 EDT Tel [phone], Service support , CC: MD Sonam Denise; Doris Navarro DO Report Programmer: Signed 06-Feb-2018 History and Physical Exam Result: Comments: See Note; NOTES: [facility] Medical Records Department [address] [place] [address] History and Physical 02/06/182050 MR#: [id number] Acct: [id number] Name: MARICRUZ GRIGSBY Rep #: [id number] : 1940 77 From: María Barnes MD [...] cholecystectomy Psychiatric History: No pertinent psych hx AURICULAR THERAPIST History: No pertinent AURICULAR THERAPIST history Lives: Spouse/ Significant Other Smoking Status: [...] Subcu heparin. This note was generated with REAL SAMURAI software. It may contain incorrect words, spelling, and punctuation that were not noted in checking the note before signing. Code Visit OBSV E AND M: 46768 Initial observation care L3 2108 <Electronically signed by María Barnes MD> Date María Barnes MD Cosigner Signature: Date (if applicable) CC: María Barnes; Doris Navarro DO Signed 06-Feb-2018 Brain/Head without Contrast Result: Comments: See Note; NOTES: [facility] Imaging Services [address] [facility] [place] [address] Brain/Head without Contrast MR#: [id number] Acct: [id number] Name: MARICRUZ GRIGSBY Rep #: [id number] : 1940 F 77 From: Renata Lee MD PCP: Doris Navarro DO Status: REG Study: Brain/Head without Contrast Date of Exam: 02/06/18 Exam# [id number] Ordering Dr: Cameron Marte MD STUDY: CT [...] , CC: Doris Navarro DO; Jered Marte Report Programmer: Signed 06-Feb-2018 Chest 1 View Result: Comments: See Note; NOTES: [facility] Imaging Services [address] [place] [address] Chest 1 View MR#: [id number] Acct: [id number] Name: MARICRUZ GRIGSBY Rep #: [id number] : 1940 F 77 From: Renata Lee MD PCP: Doris Navarro DO Status: REG ER Study: Chest 1 View Date of Exam: 02/06/18 Exam# [id number] Ordering Dr: Jered Marte MD STUDY: X-RAY [...] , Service support , CC: Doris Marte Report Programmer: Signed 25-Nov-2017 Liver Result: Comments: See Note; NOTES: [facility] Imaging Services [address] [place] [address] Liver MR#: [id number] Acct: [id number] Name: MARICRUZ GRIGSBY Rep #: [id number] : 1940 F 77 From: Mack Hand MD PCP: Doris Navarro DO Status: REG CLI Study: Liver Date of Exam: 11/25/17 Exam# [id number] Ordering Dr: Doris Navarro DO STUDY: ABDOMINAL [...] MD at 12:34 EDT , Service support [phone], CC: Doris Navarro DO Report Programmer: Signed 29-Oct-2017 Hip 2-3 Views with Pelvis Result: Comments: See Note; NOTES: [facility] Imaging Services [address] [place] [address] Hip 2-3 Views with Pelvis MR#: [id number] Acct: [id number] Name: CLIFFORD CRUZMARICRUZ Stuart Macias #: [id number] : 1940 F 77 From: Benji Finch PCP: Doris Navarro DO Status: REG CLI Study: Hip 2-3 Views with Pelvis Date of Exam: 10/29/17 Exam# [id number] Ordering Dr: Thelma Sofia STUDY: X-RAY - [...] , CC: QUINN Sofia; Doris Navarro DO Report Programmer: Signed 27-Aug-2017 12 Lead Electrocardiogram Result: Comments: See Note; NOTES: [facility] Cardiovascular Services [address] [place] [address] 12 Lead EKG 08/24/17 1719 MR#: [id number] Acct: [id number] Name: PORTIA GRIGSBY Rep #: [id number] : 1940 77 From: Maurilio Meraz MD [...] onfirmed by SOLEDAD STREETER, MAURILIO ([id number]), editor city STACY CARTER (56) on 08/27/2017 10:37:34 AM Referred By: EITAN Confirmed By:MAURILIO MERAZ MD 08/27/17 1037 Date Maurilio Meraz MD CC: Doris Navarro DO Signed 25-Aug-2017 Emergency Department Summary Result: Comments: See Note; NOTES: [facility] Medical Records Department [address] [place] [address] Emergency Department Summary 08/24/17 1709 MR#: [id number] Acct: [id number] Name: MARICRUZ GRIGSBY Rep #: [id number] : 1940 77 From: Zee Denise MD [...] be altered This note was generated with [employer] dictation software. It may contain incorrect words, [...] your Primary Care Provider. Call Doctors Registry ([phone]) or report to the closest Emergency Room. Call 911 if necessary. 08/25/17 0001 <Electronically sig radha by Zee Denise MD> Date Zee Denise MD Cosigner Signature (If Indicated): Date CC: Doris Navarro DO 24-Aug-2017 Discharge Instruction Result: Comments: See Note; NOTES: [facility] Medical Records Department [address] [place] [address] Discharge Instruction 08/24/17 1820 MR#: [id number] Acct: [id number] Name: CLIFFORD CRUZMARICRUZ Stuart Rep #: [id number] : 1940 77 From: Zee Denise MD PCP: Doris Navarro DO Status: REG ER ED Disposition - Plan for ED Patient: Chief Complaint: Shortness of Breath Ins tructions: ED Reactive Airway Disease, ED Bronchitis Asthmatic, ED Upper Resp Infec No Abx Tx Referrals: Dorsi Navarro DO [Primary Care Provider] - What to do if you have Problems For any increas ed pain, shortness of breath, bleeding, nausea or vomiting, chest pain, or any unexpected problems, contact your Primary Care Provider. Call Doctors Registry ([phone]) or report to the closest [facility] Room. Call 911 if necessary. 08/24/17 1821 <Electronically signed by Zee Denise MD> Date Zee Denise MD Cosign er Signature (If Indicated): Date CC: Doris Navarro DO 24-Aug-2017 Chest PA and Lateral Result: Comments: See Note; NOTES: [facility] Imaging Services [address] [place] [address] Chest PA and Lateral MR#: [id number] Acct: [id number] Name: MARICRUZ GRIGSBY Rep #: [id number] : 1940 F 77 From: Stacy Tapia MD PCP: Doris Navarro DO Status: REG ER Study: Chest PA and Lateral Date of Exam: 08/24/17 Exam# [id number] Ordering Dr: Zee Denise MD XR Chest [...] CC: MD Sonam Denise; Doris Navarro DO Report Programmer: Signed 07-Aug-2017 Chest PA and Lateral Result: Comments: See Note; NOTES: [facility] Imaging Services [address] [place] [address] Chest PA and Lateral MR#: [id number] Acct: [id number] Name: MARICRUZ GRIGSBY Rep #: [id number] : 1940 F 77 From: Teo Wayne MD PCP: Doris Navarro DO Status: REG CLI Study: Chest PA and Lateral Date of Exam: 08/07/17 Exam# [id number] Ordering Dr: Doris Navarro DO STUDY: X-RAY [...] Logan i, MD at 13:49 EST Tel [phone], Service support , CC: Doris Navarro DO Report Programmer: Signed 20-Nov-2016 Operative Report Result: Comments: See Note; NOTES: [facility] Medical Records Department [address] [place] [address] Operative Report 11/14/16 0736 MR#: [id number] Acct: [id number] Name: CLIFFORD HOBBS FADUMOMARICRUZ Stuart Rep #: [id number] : 1940 76 From: Liza Duron DO PCP: Doris Navarro DO Status: [facility] Y Location: [facility] Report of Operation Date of Procedure: 11/14/16 Pre-Operative Diagnosi s: Right third and fourth trigger fingers Post-Operative Diagnosis: Name Surgery/Procedure Performed:: Right hand third and fourth A1 shannan release Type of Anesthesia:: Block,[place] Anesthesiologist: Fox Michaels Estimated Blood Loss (mL): [...] Dragon disclaimer This note was generated with Altatech dictation software. It may contain incorrect words, spellin g, and punctuation that were not noted in checking the note before signing. 11/20/16 1231 <Electronically signed by Liza Duron DO> Date Liza Duron DO CC: Liza Duron DO; Doris Navarro DO Signed 16-Nov-2016 Oncology Progress Note Result: Comments: See Note; NOTES: [facility] Medical Records Department [address] [place] [address] Oncology Progress Note MR#: [id number] Acct: [id number] Name: PORTIA GRIGSBY Rep #: [id number] : 1940 76 From: Sal Urrutia MD [...] level. Sal Urrutia MD T: NTS JOB: [id number] 11/16/16 0850 <Electronically signed by Sal Urrutai MD> Date Sal Urrutia MD Cosigner Signature (If Indicated): Date CC: Date Dictated: 11/08/16 1305 Date Transcribed: 11/08/161304 Report Programmer: Signed 14-Nov-2016 Discharge Instruction Result: Comments: See Note; NOTES: [facility] Medical Records Department [address] [place] [address] Instructions for Home/Discharge Instructions 11/14/16 0735 MR#: [id number] Acct: [id number] Name: CLIFFORD CRUZMARICRUZ L Rep #: [id number] : 1940 76 From: Liza Duron DO PCP: Doris Navarro DO Status: REG [facility] Discharge Diet: No Restrictions - keep dressing [...] mg PO DAILY 11/09/16 Hydrocodone Bitart/Apap 5-325 [Nondalton 5MG- 325MG] 1 - 2 tablet PO Q6H PRN PRN #20 tablet 11/14/16 The following prescriptions were given: Hydrocodone Bitart/Apap 5- 325 [Nondalton 5MG-325MG] 1 - 2 tablet PO Q6H PRN PRN #20 tablet PRN Reason: Pain Primary Care Physician: Doris Navarro DO [Primary Care Provider] - Please Follow Up With: Liza Duron - [phone] 11/14/16 0736 <Electronically signed by Liza Duron DO> Date Liza Duron DO CC: Doris Navarro DO 20-Jul-2016 Chest PA and Lateral Result: Comments: See Note; NOTES: [facility] Imaging Services [address] [place] [address] Verdana 4d Chest PA and Lateral MR#: [id number] Acct: [id number] Name: JAQUAN GRIGSBY Rep #: [id number] : 1940 F 76 From: Mack Hand MD PCP: Doris Navarro DO Status: REG CLI Study: Chest PA and Lateral Date of Exam: 07/20/16 Exam# [id number] Ordering Dr: Doris Navarro DO STUDY: X-RAY [...] at 12:24 EST Tel , Service support [phone], CC: Doris Navarro Report Programmer: Signed 26-Jan-2016 Echocardiogram Complete Result: Comments: See Note; NOTES: [facility] Cardiovascular Services [address] [place] [address] Echo Complete 01/26/16 1008 MR#: [id number] Acct: [id number] Name: MARICRUZ PARMAR Rep #: [id number] : 1940 75 From: Mack Dickerson MD Attending Dr: Maggie Tracey DO Status: REG CLI Ordering Dr: Maggie Tracey DO Date: 01/26/16 Location: [facility] Sex: F C Admitt ed: [...] Dictated: 01/26/16 1008 Date Transcribed: 01/26/16 1612 Report Programmer: Signed 05-Dec-2015 Chest 1 View (Portable) Result: Comments: See Note; NOTES: [facility] Imaging Services [address] [place] [address] Verdana 4d Chest 1 View (Portable) MR#: [id number] Acct: [id number] Name: PANDA CRUZMARICRUZ Stuart Rep #: [id number] : 1940 F 75 From: Yari Garcia MD PCP: Maggie Tracey DO Status: PRE ER Study: Chest 1 View (Portable) Date of Exam: 12/05/15 Exam# [id number] Ordering Dr: Johnnie Baez MD STUDY: X-RAY [...] at 16:44 EDT Tel , Service support [phone], RAD/Chest 1 V iew (Portable) IMPRESSION: Underexpansion of the lungs. Mild to moderate cardiomegaly. Electronically Signed: Yari Garcia MD at 16:44 EDT Tel , Service support , CC: Maggie Tracey DO; Johnnie Baez MD Report Programmer: Signed 05-Dec-2015 Spirometry (12211) Comments: good effort and curvenormal Result: 05-Dec-2015 EKG (45134) Comments: ekg showed normal sinus rhythym, normal axis, no acute st/t wave changes Result: [MEASUREMENTS ANALYSIS] Date of Test: 12/05/2015 14:27:41; Heart Rate: 93; NV Interval: 202; QRS: 96; QT Interval: 352; Corrected QT Interval (QTc): 409; P Wave [place]: 48; QRS Wave [place]: -26; T Wave [place] : 55; Blood Pressure: 134/64 [ECG DIAGNOSTIC STATEMENTS] Date of Test: 12/05/2015 14:27:41; Summary: Sinus Rhythm WITHIN NORMAL LIMITS 21-Sep-2015 12 Lead Electrocardiogram Result: Comments: See Note; NOTES: [facility] Cardiovascular Services [address] [place] [address] 12 Lead EKG 09/19/15 0908 MR#: [id number] Acct: [id number] Name: MARICRUZ VIGLI Rep #: [id number] : 1940 75 From: Maurilio Meraz MD Attending Dr: Status: [facility] ER Ordering Dr: Johnnie Baez MD Date: [...] wave progression Confirmed by SOLEDAD STREETER, MAURILIO ([id number]), editor city [place]ACY CARTER (56) on 09/21/2015 11:27:40 AM Referred By: JE Confirmed By:MAURILIO MERAZ MD 1127 Date Maurilio Meraz MD CC: Maggie Tracey DO Date Dictated: 09/19/15907 Date Transcribed: 09/19/15907 Report Programmer: Signed 19-Sep-2015 Discharge Instruction Result: Comments: See Note; NOTES: [facility] Medical Records Department [address] [place] [address] Discharge Instruction 09/19/15 1020 MR#: [id number] Acct: [id number] Name: MARICRUZ GRIGSBY Rep #: [id number] : 1940 75 From: Johnnie Baez MD [...] chest pain, or any unexpected problems, contact [facility] doctor. Call Doctors Registry ([phone]) or report to the closest Emergency Room. Call 911 if necessary. 09/19/15 5907 <Electronically signed by Johnnie Baez MD> Date __ Johnnie Baez MD Cosigner Signature (If Indicated): Date CC: Maggie Tracey DO 19-Sep-2015 Emergency Department Summary Result: Comments: See Note; NOTES: [facility] Medical Records Department [address] [place] [address] Emergency Department Summary MR#: [id number] Acct: [id number] Name: MARICRUZ GRIGSBY Stuart Rep #: [id number] : 1940 75 From: Johnnie Baez MD PCP: Maggie Tracey DO Status: [facility] ER DATE OF SERVICE: 09/19/2015 [...] C: Maggie Tracey DO T: NTS JOB: [id number] 09/19/15 1755 <Electronically signed by Johnnie Baez MD& amp;#62; Date Johnnie Baez MD Cosigner Signature (If Indicated): Date CC: Maggie Tracey DO Date Dictated: 09/19/15 1019 Date Transcribed: 09/19/15 1019 Report Programmer: Signed 07-Sep-2015 Chest PA and Lateral Result: Comments: See Note; NOTES: [facility] Imaging Services [address] [place] [address] Verdana 4d Chest PA and Lateral MR#: [id number] Acct: [id number] Name: EAN MARICRUZ JUÁREZ Rep #: [id number] : 1940 F 75 From: Kali Raymundo MD PCP: Maggie Tracey DO Status: REG CLI Study: Chest PA and Lateral Date of Exam: 09/07/15 Exam# [id number] Ordering Dr: Maggie Irwin DO STUDY: X-RAY [...] FACR at 11:41 EST , Service support [phone], RAD/Chest PA and Lateral IMPRESSION: No significant changes. Stable moderate cardiomegaly. Bilateral interstitial changes more prominent on the right. Electroni marcus Signed: Kali Raymundo MD, FACR at 11:41 EST , Service support [phone], CC: Maggie Tracey DO Report Programmer: Signed 07-Sep-2015 Spirometry (75627) Comments: good effort and curve normal Result: 24-Mar-2015 PT Discharge Summary Result: Comments: See Note; NOTES: [facility] [facility] [place] [address] Fax REHABILITATION SERVICES DISCHARGE SUMMARY MR#: [id number] Acct: [id number] Name: MARICRUZ GRIGSBY Rep #: [id number] : 1940 75 From: Yuni Clark Referring [...] discharge. Yuni Clark, PT T: NTS JOB: [id number] <Electronically signed by Yuni Clark > 03/24/15 1227 CC: Maggie Tracey DO Signed 17-Feb-2015 Inital Evaluation - PT Result: Comments: See Note; NOTES: [facility] [place] [address] Fax REHABILITATION SERVICES INITIAL EVALUATION MR#: [id number] Acct: [id number] Name: CLIFFORD CRUZMARICRUZ Rep #: [id number] : 1940 75 From: Yuni Clark Referring : Maggie Tracey DO Status: REG RCR Insurance : MEDICARE PART A B Eval Date: [facility] DATE OF SERVICE: 02/16/2015 SUBJECTIVE: This patient [...] care. Yuni Clark, PT T: NTS JOB: [id number] <Electronically signed by Yuni Clark > 02/17/15 1011 CC: Signed For Medicare only, by seng yao this I certify the plan of care. Physicians Signature Date 08-Feb-2015 L/S Spine Min 4 Views Result: Comments: See Note; NOTES: [facility] Imaging Services [address] [place] [address] Radiology Report MR#: [id number] Acct: [id number] Name: CLIFFORD CRUZMARICRUZ Davidson Rep #: [id number] : 1940 F 74 From: Teo Wayne MD PCP: Maggie Tracey DO Status: REG CLI Study: L/S Spine Min 4 Views Date of Exam: 02/08/15 Exam# [id number] Ordering Dr: Maggie Tracey DO STUDY: X-RAY [...] Wayne MD a t 12:30 EDT Tel [phone], Service support [phone], RAD/L/S Spine Min 4 Views IMPRESSION: Degenerative changes of the spine, as detailed above. Electro nically Signed: Teo Wayne MD at 12:30 EDT Tel [phone], Service support [phone], CC: Maggie Tracey DO Report Programmer: Signed 15-Nov-2014 Thyroid Result: Comments: See Note; NOTES: [facility] Imaging Services [address] [place] [address] Ultrasound Report MR#: [id number] Acct: [id number] Name: MARICRUZ GRIGSBY Rep #: [id number] : 1940 F 74 From: Julián Trivedi DO PCP: Maggie Tracey DO Status: REG CLI Study: Thyroid Date of Exam: 11/15/14 Exam# [id number] Ordering Dr: Maggie Tracey DO STUDY: THYROID [...] Julián Trivedi DO at 16:51 EDT Tel [phone], Service support [phone], Fax CC: Maggie Tracey DO Report Programmer: Signed 13-Sep-2014 Chest PA and Lateral Result: Comments: See Note; NOTES: [facility] Imaging Services [address] [place] [address] Radiology Report MR#: [id number] Acct: [id number] Name: MARICRUZ GRIGSBY Rep #: [id number] : 1940 F 74 From: Donato Abdi MD PCP: Maggie Tracey DO Status: REG CLI Study: Chest PA and Lateral Date of Exam: 09/13/14 Exam# [id number] Ordering Dr: Maggie Tracey DO STUDY: X [...] at 12:01 EST Tel , Service support [phone], CC: Maggie Tracey DO Report Programmer: Signed 15-Jul-2014 Chest PA and Lateral Result: Comments: See Note; NOTES: [facility] Imaging Services [address] [place] [address] Radiology Report MR#: [id number] Acct: [id number] Name: MARICRUZ GRIGSBY Rep #: [id number] : 1940 F 74 From: Teo Wayne MD PCP: Maggie Tracey DO Status: REG CLI Study: Chest PA and Lateral Date of Exam: 07/15/14 Exam# [id number] Ordering Dr: Maggie Tracey DO SANDI DY: [...] Teo Wayne MD at 9:42 EST Tel [phone], Service support [phone], CC: Maggie Tracey DO Report Programmer: Signed 10-May-2014 Bilat Scrn Digital & CAD Result: Comments: See Note; NOTES: [facility] Imaging Services [address] [place] [address] Breast Imaging Report MR#: [id number] Acct: [id number] Name: CLIFFORD HOBBSFADUMOJAQUANMARICRUZ R ep #: [id number] : 1940 F 74 From: Gene Phillips PCP: Maggie Tracey DO Status: REG CLI Exam# [id number] Ordering Dr: Maggie Tracey DO MAMMOGRAPHY - [...] results will be sent to the [facility] ient by the facility within 30 days. Approximately 10% of breast cancers are not detected by mammography. A normal mammogram should not delay biopsy of a clinically suspicious abnormality. Electro nically Signed: Jessenia Phillips MD at 19:48 EDT Tel , Service support [phone], CC: Maggie Tracey DO Report Programmer: Signed 10-Sep-2013 Dexa Bone Density Study (HP) Result: Comments: See Note; NOTES: [facility] Imaging Services [address] [place] [address] Bone Density Report MR#: [id number] Acct: [id number] Name: MARICRUZ GRIGSBY Rep #: [id number] : 1940 F 73 From: Teo Wayne MD PCP: Maggie Tracey DO Status: REG CLI Study: Dexa Bone Density Study () Date of Exam: 09/10/13 Exam# [id number] Ordering Dr: Maggie Tracey DO STUDY: DUAL [...] M.D. at 11:04 EST , Service support [phone], CC: Maggie Tracey DO Report Programmer: Signed Immunization Name Dates Details Influenza (3 years and up) on: 04-Jun-2007 Comments: Lot #: [id number] date: 01/03Amount given: 0.5 MLRoute: IMSite given: Left deltoidGiven by: Nathaniel Beal LPN Influenza (3 years and up) on: 12-May-2009 Comments: Lot #[id number]-left deltoidgiven by:CDH Family History Unknown Family Member [...] kg/m2 Body Surface Area Calculated 2.06 m2 39-Glx-266013:32 Temperature 97.6 f Comments: Method: Temporal Pulse [...] kg/m2 Body Surface Area Calculated 2.01 m2 80-Hik-594962:36 Pulse 80 /min Comments: Pattern: Regular Respiration [...] Area Calculated 2.06 m2 :38 Comments: hearing wnlDrDonnei Reyes and herrera da glaucoma test done [...] administered 81mg asa orally at this time [facility] BP Systolic 156 mm[Hg] Comments: Patient [...] 0.00 cm Results Date Description Value Details 97-Wsc-682538:55 Basic Metabolic Profile (BMP) Comments: [facility] Plcujhpiiv[address] [place], [place], [address] GAP 13 (Normal) Range: 5-15 CO2 25.0 [...] A.D.A. criteria.Please note revised GLUCOSE reference range trevulafs11/02/2018. 05-Nrp-382280:55 CBC W/Diff, Automated Comments: [facility] [address] [place], [place], [address] Absolute Lymph 0.98 {X10_3/ul} (Normal) Range: 0.83-4.51 [...] 4.2-5.4 WBC 9.1 K/mm3 (Normal) Range: 4.4-11.0 28-Smr-119943:50 Rapid Strep Test, Office (50957) Rapid Strep Test, Office Negative (Normal) :58 TSH (67015) Comments: PATIENT NOT FASTINGPERFORMED BY: [employer] Lfcjar1760 [facility] [id number] TSH 5.590 {uIU/mL} (Abnormal) Range: 0.450-4.500 :58 T4, FREE (THYROXINE) (93984) Comments: PATIENT NOT FASTINGPERFORMED BY: [facility] [employer] Dmpwsw1929 [address] [facility] HospitalZhilabsRuther[facility] System [id number] T4,Free(Direct) 1.81 ng/dL (Abnormal) Range: 0.82-1.77 :58 T3, FREE (TRIDOTHYRONINE) (01842) Comments: PATIENT NOT FASTINGPERFORMED BY: Mamina Shkola Ixqice5469 [address] [facility] [id number] Triiodothyronine (T3), Free 2.1 pg/mL (Normal) Range: [...] Muscle ABS Comments: Comments: ANTI-LIVER/KIDNEY MICRO AB [id number] [facility] (refer to report for specific site)refer [...] number MELI-DIRECT Negative (Normal) Comments: Performed at: [facility] Lab[address] [id number] Director: Constantine Christianson PhD, Phone: [phone] :44 Ceruloplasmin Comments: Comments: ANTI-LIVER/KIDNEY MICRO AB [id number] [facility] (refer to report for specific site)refer to report for address and phone number CERULOPLAS 1560 22.0 mg/dL (Normal) Range: 19.0-39.0 :44 CMV Acute Antibody IgM Comments: Comments: ANTI-LIVER/KIDNEY MICRO AB [id number] [facility] (refer to report for specific site)refer to report for address and phone number CMVIgM AB < 30.0 AU/mL (Normal) Range: 0.0-29.9 Comments: Negative <30.0 Equivocal 30.0 - 34.9 Positive >34.9A positive result is generally indicative of acuteinfection, reactivation or persistent IgM production. 07-Knu-76915:44 Ferritin Comments: Comments: ANTI-LIVER/KIDNEY MICRO AB [id number] SER/[facility] [address] [place], [address] FERRITIN 236 ng/mL (Normal) Range: 8-252 :44 Free T3 Comments: Comments: ANTI-LIVER/KIDNEY MICRO AB [id number] SER/[facility] X[address]ukj[address] [place], [address] FREE T3 1.6 pg/mL (Abnormal) Range: 2.18-3.98 :44 GGTP 64 U/L (Abnormal) Comments: Comments: ANTI-LIVER/KIDNEY MICRO AB [id number] SER/[facility] C[address]uxnbgf[address] [place], [address] Range: 5-55 :44 Hepatitis Panel Acute Comments: Comments: ANTI-LIVER/KIDNEY MICRO AB [id number] [facility] (refer to report for specific site)refer to report for address and phone number HEP C AB <0.1 {s/co_ratio} (Normal) Range: 0.0-0.9 Comments: Negative: < 0.8 Indeterminate: 0.8 - 0.9 Positive: > 0.9 The CDC recommends that a positive HCV antibody result be followed up with a HCV Nucleic Acid Amplification test (099571). HB CORE [id number] Negative (Normal) HB SURF AG Negative (Normal) HEP A IgM 6734 Negative (Normal) :44 Liver Profile Comments: Comments: ANTI-LIVER/KIDNEY MICRO AB [id number] SER/[facility] V[address]eterkx[address] [place], [address] D BILI 0.17 mg/dL (Normal) Range: 0.00-0.30 T BILI 0.60 mg/dL (Normal) Range: 0.20-1.00 ALT 48 U/L (Normal) Range: 13-56 ALK P 93 U/L (Normal) Range: 45-117 AST 43 U/L (Abnormal) Range: 15-37 GLOB 3.5 g/dL (Normal) Range: 2.2-4.2 ALB 3.7 g/dL (Normal) Range: 3.2-5.0 T PROT 7.2 g/dL (Normal) Range: 6.4-8.2 :44 Miscellaneous Lab Procedure Comments: Comments: ANTI-LIVER/KIDNEY MICRO AB [id number] SER/RFTest(s) Ordered: ANTI-LIVER/KIDNEY MICROS AB [id number] SER/[facility] [address]woetp[address] [place], [id number] [facility] Comments: TEST RESULT UNITS REF INTERVALLiver- Kidney Microsomal Ab <1.0 Units 0.0 - 20.0 Negative 0.0 - 20.0 LAB (Normal) Equivocal 20.1 - 24.9 Positive >24.9LKM type 1 antibodies are detected in patients withautoimmune hepatitis type 2 and in up to 8% ofpatients wi TEST th chronic HCV infection. TESTING PERFORMED AT [facility]. ORIGINAL REPORT ON FILE IN LAB CONTAINS ADDITIONAL TEST SITE INFORMATION. :44 T4 Free Direct Comments: Comments: ANTI-LIVER/KIDNEY MICRO AB [id number] SER/[facility] [address] [place], [id number] T4 FREE DIRECT 1.06 ng/dL (Normal) Range: 0.76-1.46 :44 Thyroid Stim Hormone (TSH) Comments: Comments: ANTI-LIVER/KIDNEY MICRO AB [id number] [facility] [address] [place], [address] TSH 16.40 {uIU/mL} (Abnormal) Range: 0.358-3.74 27-Lhv-17569:44 Transferrin Comments: Comments: ANTI-LIVER/KIDNEY MICRO AB [id number] [facility] (refer to report for specific site)refer to report for address and phone number TRANSFERRN 1577 250 mg/dL (Normal) Range: 200-370 Comments: Performed at: - [facility] [id number] Director: Constantine Christianson PhD, Phone: [phone] 38-Cam-001739:16 Bedside Glucose Comments: [facility] Hzpz9931 [facility] [place] [address] BEDSIDE GLU 152 mg/dL (Abnormal) Range: 70-110 Comments: MANAGEMENT OF PATIENT CARE PER NURSING PROTOCOL 79-Ohj-483807:45 Basic Metabolic Profile (BMP) Comments: [facility] Kbtolwdxcd4592 [facility] [place], [address] GAP 8 (Normal) Range: 5-15 [...] A.D.A. criteria.Please note revised GLUCOSE reference range hdxikcwfu93/02/2018. 08-Ncj-543730:45 CBC W/Diff, Automated Comments: [facility] [address]nyrm[address] [place], [address] Absolute Lymph 1.73 {X10_3/ul} (Normal) Range: 0.83-4.51 [...] Range: 4.4-11.0 :45 Partial Thromboplast Time Comments: [facility] [address]kb[address] [place], [address] PTT 33.0 s (Normal) Range: 24.1-36.2 :45 Prothrombin Time w/INR Comments: [facility] [address] [place], [address] INR 0.9 (Normal) PROTIME 12.5 s (Normal) Range: 11.7-14.9 67-Igz-338681:45 Troponin-I Comments: [facility] [address] [place], [address] TROPONIN-I < 0.015 ng/mL Comments: TROPONIN-I EXPECTED [...] <1.0 {Units} Comments: PATIENT NOT FASTINGPERFORMED BY: [employer] SA6370 [facility] [id number] 2:14 Microsomal Ab (Normal) Range: 0.0-20.0 Comments: Negative 0.0 - 20.0 Equivocal 20.1 - 24.9 Positive >24.9 . LKM type 1 antibodies are detected in patients with autoimmune hepatitis type 2 and in up to 8% of patients with chronic HCV infection. :14 HEPATIC FUNCTION PANEL Comments: PATIENT NOT FASTINGPERFORMED BY: [employer] SA6370 [facility] [id number] (26259) ALT (SGPT) 49 [iU]/L (Abnormal) Range: 0-32 AST (SGOT) 57 [iU]/L (Abnormal) Range: 0-40 Alkaline Phosphatase 100 [iU]/L (Normal) Range: 39-117 Bilirubin, Direct 0.14 mg/dL (Normal) Range: 0.00-0.40 Bilirubin, Total 0.4 mg/dL (Normal) Range: 0.0-1.2 Albumin 4.1 g/dL (Normal) Range: 3.5-4.8 Protein, Total 6.8 g/dL (Normal) Range: 6.0-8.5 09-Nhw-130690:14 HEPATITIS PANEL (14716) Comments: PATIENT NOT FASTINGPERFORMED BY: [facility]6370 [facility] [id number] Hep C Virus Ab <0.1 {s/co_ratio} (Normal) Range: 0.0-0.9 Comments: Negative: < 0.8 Indeterminate: 0.8 - 0.9 Positive: > 0.9 . The CDC recommends that a positive HCV antibody result be followed up with a HCV Nucleic Acid Amplification test (324851). Hep B Core Ab, IgM Negative (Normal) HBsAg Screen Negative (Normal) Hep A Ab, IgM Negative (Normal) 01-Voc-651451:14 ANTIMITOCHONDRIAL ANTIBODY Comments: PATIENT NOT FASTINGPERFORMED BY: [place] [address]1870 [facility] [id number] (32435) Mitochondrial (M2) Antibody <20.0 {Units} (Normal) Range: 0.0-20.0 Comments: Negative 0.0 - 20.0 Equivocal 20.1 - 24.9 Positive >24.9 . Mitochondrial (M2) Antibodies are found in 90-96% of patients with primary biliary cirrhosis. 22-Anf-541189:14 TRANSFERRIN (89020) Comments: PATIENT NOT FASTINGPERFORMED BY: [facility]6370 [facility] [id number] Transferrin 226 mg/dL (Normal) Range: 200-370 63-Wis-051080:14 GGT (GAMMA GLUTAMYLTRANSFERASE) Comments: PATIENT NOT FASTINGPERFORMED BY: [facility]6370 [facility] [id number] (24244) GGT 59 [iU]/L (Normal) Range: 0-60 67-Ykr-495259:14 FERRITIN (97625) Comments: PATIENT NOT FASTINGPERFORMED BY: [facility]6370 [facility] [id number] Ferritin, Serum 545 ng/mL (Abnormal) Range: 15-150 33-Gkg-841252:14 CMV IGM ANTBDY (32644) Comments: PATIENT NOT FASTINGPERFORMED BY: [facility]6370 [facility] [id number] Cytomegalovirus (CMV) Ab, IgM <30.0 AU/mL (Normal) Range: 0.0-29.9 Comments: Negative <30.0 Equivocal 30.0 - 34.9 Positive >34.9 A positive result is generally indicative of acute infection, reactivation or persistent IgM production. 45-Tfb-156587:14 CERULOPLASMIN (63061) Comments: PATIENT NOT FASTINGPERFORMED BY: Mamina Shkola Lrorde9025 Waller RoadDublin [place] [id number] Ceruloplasmin 26.3 mg/dL (Normal) Range: 19.0-39.0 40-Vmr-413509:14 ASM (ANTI SMOOTH MUSCLE Comments: PATIENT NOT FASTINGPERFORMED BY: [employer] Hfhlte3304 [address] Sin[facility] Pharmablin [place] [id number] ANTIBODY) (27598) Actin (Smooth Muscle) Antibody 5 {Units} (Normal) Range: 0-19 Comments: Negative 0 - 19 Weak positive 20 - 30 Moderate to strong positive >30 . Actin Antibodies are found in 52-85% of patients with autoimmune hepatitis or chronic active hepatitis and in 22% of patients with primary biliary cirrhosis. 81-Agb-802781:14 MELI (ANTINUCLEAR ANTIBODY) Comments: PATIENT NOT FASTINGPERFORMED BY: Mamina Shkola Ywpsbd1081 [address] [facility] PharmaAtrium Health Kings Mountainin [place] [id number] (12645) MELI Direct Negative (Normal) 40-Tzp-101342:33 HgA1C , Office (03609) HgA1C , Office 7.2 % (Abnormal) Range: 4.6 - 7.1 37-Qan-594681:38 MELI (ANTINUCLEAR ANTIBODY) Comments: PATIENT NOT FASTINGPERFORMED BY: Mamina Shkola Xrrhft6075 [address] [facility] Hospital[facility] [place] [id number] (98468) MELI Direct Negative (Normal) 62-Lmk-466789:38 VITAMIN B-12 (CYANOCOBALAMIN) Comments: PATIENT NOT FASTINGPERFORMED BY: [employer] Jhwmnr9048 [address] [facility] Hospital[facility] [place] [id number] (15518) Vitamin B12 463 pg/mL (Normal) Range: 232-1245 00-Wta-892379:38 TSH (17915) Comments: PATIENT NOT FASTINGPERFORMED BY: Mamina Shkola Urhihr1148 [address] [facility] [id number] TSH 0.062 {uIU/mL} (Abnormal) Range: 0.450-4.500 98-Zmi-316244:38 SED RATE ERYTHROCYTE (33363) Comments: PATIENT NOT FASTINGPERFORMED BY: CORTEZ Mamina ShkolaLos Alamos Medical CenterBeoucp2707 [facility] [id number] Sedimentation Rate-Westergren 7 mm/h (Normal) Range: 0-40 23-Doa-483427:38 METABOLIC PANEL, COMPREHENSIVE Comments: PATIENT NOT FASTINGPERFORMED BY: CORTEZ Diabeto70 [facility] [id number] (22967) ALT (SGPT) 52 [iU]/L (Abnormal) Range: 0-32 [...] 8-27 Glucose 134 mg/dL (Abnormal) Range: 65-99 26-Lmi-722623:38 C-REACTIVE PROTEIN (45188) Comments: PATIENT NOT FASTINGPERFORMED BY: [facility]6370 [facility] [id number] C-Reactive Protein, Quant 4.8 mg/L (Normal) Range: 0.0-4.9 74-Qqr-294437:38 CBC (AUTO) (30325) Comments: PATIENT NOT FASTINGPERFORMED BY: [facility]6370 [facility] [id number] Platelets 248 {x10E3/uL} Range: 150-379 (Normal) RDW [...] mg/L (Abnormal) Comments: PATIENT NOT FASTINGPERFORMED BY: [place] 4571870 [facility] [id number] BY: [address] [id number] 2:25 Serum Range: 0.6-2.4 Comments: Siemens Immulite 2000 Immunochemiluminometric assay (ICMA) 7-Zoi-125901:25 Immunoglobulins Comments: PATIENT NOT FASTINGPERFORMED BY: [facility]6370 [facility] [id number] BY: [address] [id number] Iga/Ige/Igg/Igm (GAME) (26556) Immunoglobulin E, Total 259 {IU/mL} (Abnormal) Range: 0-100 Immunoglobulin M, Qn, Serum 113 mg/dL (Normal) Range: 26-217 Immunoglobulin A, Qn, Serum 130 mg/dL (Normal) Range: 64-422 Immunoglobulin G, Qn, Serum 837 mg/dL (Normal) Range: 700-1600 7-Gmn-364304:25 LDH (LD) (LACTATE Comments: PATIENT NOT FASTINGPERFORMED BY: Mamina ShkolaJFK Medical CenterHyfpcu3102 [facility] [id number] BY: [address] [id number] DEHYDROGENASE) (35431) LDH 195 [iU]/L (Normal) Range: 119-226 7-Zvp-316431:25 METABOLIC PANEL, Comments: PATIENT NOT FASTINGPERFORMED BY: Mamina ShkolaJFK Medical CenterYtozvk5858 [facility] [id number] BY: [employer] [id number] COMPREHENSIVE (47912) ALT (SGPT) 47 [iU]/L (Abnormal) Range: 0-32 [...] 8-27 Glucose 139 mg/dL (Abnormal) Range: 65-99 0-Kmx-955464:25 CBC, PLATELETS & AUT DIFF Comments: PATIENT NOT FASTINGPERFORMED BY: Mamina ShkolaJFK Medical CenterAkjklg6113 [facility] [id number] BY: [facility] [id number] (02569) Immature Grans (Abs) 0.0 {x10E3/uL} (Normal) Range: [...] 3.77-5.28 WBC 7.2 {x10E3/uL} (Normal) Range: 3.4-10.8 15-Bhb-142619:28 Microscopic Examination Comments: PATIENT NOT FASTINGPERFORMED BY: LabCoJFK Medical CenterCgfwkl6759 [facility] [id number] Bacteria None seen (Normal) Mucus Threads Present (Normal) Cast Type Hyaline casts (Normal) Casts Present {/lpf} (Abnormal) Epithelial Cells (non renal) 0-10 {/hpf} (Normal) Range: 0 - 10 RBC 0-2 {/hpf} (Normal) Range: 0 - 2 WBC >30 {/hpf} (Abnormal) Range: 0 - 5 70-Xev-726017:24 URINE RANI CULTURE-RADHA COL Comments: PATIENT NOT FASTINGPERFORMED BY: [employer] SolutionsCenterpointe HospitalNwmuog5011 [facility] [id number] Information: SRC:UC COUNT (78131) Antimicrobial MIHEAD (Normal) Comments: S = Susceptible; I = Intermediate; R = Resistant P = Positive; N = Negative MICS are expressed in micrograms per mL Antibiotic RSLT#1 RSLT#2 RS Susceptibility LT#3 RSLT#4Amoxicillin/Clavulanic Acid SAmpicillin RCefepime SCeftriaxone SCefuroxime SCephalothin SCiprofloxacin SGentamicin SImipenem SNitrofurantoin SPiperacillin RTetracycline STobram ycin STrimethoprim/Sulfa S Result 1 Raoultella Comments: 5,000 Colonies/mL planticola (Abnormal) Urine Final report Culture,Comprehensive (Abnormal) 08-Ouo-770511:28 MICROALBUMIN: CREATININE RATIO Comments: PATIENT NOT FASTINGPERFORMED BY: [facility] SolutionsSelect [facility]ty Hospital-[facility]6370 [facility] [id number] (79155) AND (70555) Alb/Creat Ratio 215.8 {mg/g_creat} (Abnormal) Range: 0.0-30.0 Albumin, Urine 245.4 ug/mL (Normal) Creatinine, Urine 113.7 mg/dL (Normal) 63-Gbw-647819:28 URINALYSIS, W/ MICRO (44301) Comments: PATIENT NOT FASTINGPERFORMED BY: [facility]Ge[facility] SolutionsSelect Specialty Hospital-Flint6370 [facility] [id number] Microscopic Examination See below: (Normal) Comments: Microscopic was indicated and was performed. Nitrite, Urine Negative (Normal) Urobilinogen,Semi-Qn 0.2 mg/dL (Normal) Range: 0.2-1.0 Bilirubin Negative (Normal) Occult Blood Negative (Normal) Ketones Negative (Normal) Glucose Trace (Abnormal) Protein 1+ (Abnormal) WBC Esterase 1+ (Abnormal) Appearance Clear (Normal) Urine-Color Yellow (Normal) pH 5.5 (Normal) Range: 5.0-7.5 Specific [place] 1.025 (Normal) Range: 1.005-1.030 88-Psd-709310:28 METABOLIC PANEL, COMPREHENSIVE Comments: PATIENT NOT FASTINGPERFORMED BY: [employer] [facility] [id number] (41001) ALT (SGPT) 37 [iU]/L (Abnormal) Range: 0-32 [...] Glucose, Serum 179 mg/dL (Abnormal) Range: 65-99 38-Ahz-534101:28 CBC, PLATELETS & AUT DIFF Comments: PATIENT NOT FASTINGPERFORMED BY: [employer] [facility] [id number] (24939) Immature Grans (Abs) 0.0 {x10E3/uL} (Normal) Range: [...] 3.77-5.28 WBC 9.3 {x10E3/uL} (Normal) Range: 3.4-10.8 70-Jsj-265342:28 TSH (THYROID STIMULATING Comments: PATIENT NOT FASTINGPERFORMED BY: [facility]6370 [facility] [id number] HORMONE) (64083) TSH 23.220 {uIU/mL} (Abnormal) Range: 0.450-4.500 62-Gne-239367:28 LIPID PANEL (31638) Comments: PATIENT NOT FASTINGPERFORMED BY: [facility]6370 [facility] [id number] LDL/HDL Ratio 1.7 {ratio_units} (Normal) Range: 0.0-3.2 Comments: LDL/HDL Ratio Men Women 1/2 Avg.Risk 1.0 1.5 Av g.Risk 3.6 3.2 2X Avg.Risk 6.2 5.0 3X Avg.Risk 8.0 6.1 LDL Cholesterol Calc 83 mg/dL (Normal) Range: 0-99 VLDL Cholesterol Priscilla 42 mg/dL (Abnormal) Range: 5-40 HDL Cholesterol 48 mg/dL (Normal) Triglycerides 208 mg/dL (Abnormal) Range: 0-149 Cholesterol, Total 173 mg/dL (Normal) Range: 100-199 62-Cvd-094217:28 CALCIFEDIOL (69527) Comments: PATIENT NOT FASTINGPERFORMED BY: CORTEZ [facility] Oxwpug1141 [address] [facility] [id number] Vitamin D, 25-Hydroxy 25.4 ng/mL (Abnormal) Range: 30.0-100.0 Comments: Vitamin D deficiency has been defined by the [place] and an Endocrine Society practice guideline as alevel of serum 25-OH vitamin D less than 20 ng/mL (1,2).The Endocrine Society went on to further define vitamin Dinsufficiency as a level between 21 and 29 ng/mL (2).1. IOM ([place] [employer]). 2010. Dietary reference intakes for calcium and D. [place]: The National Academies Press.2. Rachel MF, Yael NC, Dunia HERRERA, et al. Evaluation, treatment, and prevention of vitamin D deficiency: an Endocrine Society clinical practice guideline. JCEM. 2010; 96(7):1911-30. 94-Plc-828179:40 Basic Metabolic Profile (BMP) Comments: 'TROP' Serial specimen #1, #2, #3, or #4: [address] [place] [address] [address] [place], [address] GAP 11 (Normal) Range: 5-15 CO2 24.0 [...] 126 mg/dLsuggests DIABETES MELLITUS per A.D.A. criteria. 33-Ptb-412147:40 BNP,B-Type NATRIURETIC PEPTIDE Comments: [facility] Pvnpnwcdcx2311 [facility]. [place], [place], [address] B-TYPE SANJU PEP 13.3 pg/mL (Normal) Range: 0-100 93-Xfw-424608:40 CBC W/Diff, Automated Comments: [facility] Ftcfuagdwp1330 [facility]. [place], [place], [address] Absolute Lymph 1.65 {X10_3/ul} (Normal) Range: 0.83-4.51 [...] 4.2-5.4 WBC 4.1 K/mm3 (Abnormal) Range: 4.4-11.0 75-Pdk-635403:40 Troponin-I Comments: 'TROP' Serial specimen #1, #2, #3, or #4: [address] [place] [address] Anqdtvrorr2854 [place], [place], [id number] TROPONIN-I < 0.02 ng/mL (Normal) Comments: TROPONIN-I EXPECTED VALUES <0.05 NEGATIVE 0.06 - 0.59 AT RISK OF [place] > OR = 0.60 SUGGEST [place] 78-Dto-186316:08 Microscopic Examination Comments: PATIENT WAS FASTINGPERFORMED BY: [employer]70 [facility] [id number] Bacteria Few (Normal) Mucus Threads Present (Normal) Cast Type Hyaline casts (Normal) Casts Present {/lpf} (Abnormal) Epithelial Cells (non renal) 0-10 {/hpf} (Normal) Range: 0 - 10 RBC 0-2 {/hpf} (Normal) Range: 0 - 2 WBC 11-30 {/hpf} (Abnormal) Range: 0 - 5 71-Tyk-498812:08 CALCIFIDIOL (69796) VIT D 25 Comments: PATIENT WAS FASTINGPERFORMED BY: Drimmi Avsfge5401 [facility] [id number] Vitamin D, 25-Hydroxy 33.5 ng/mL (Normal) Range: 30.0-100.0 Comments: Vitamin D deficiency has been defined by the [place] and an Endocrine Society practice guideline as alevel of serum 25-OH vitamin D less than 20 ng/mL (1,2).The Endocrine Society went on to further define vitamin Dinsufficiency as a level between 21 and 29 ng/mL (2).1. IOM ([place]). 2010. Dietary reference intakes for calcium and D. [place]: The National Academies Press.2. Rachel MF, Yael MARLEY, Dunia HERRERA, et al. Evaluation, treatment, and prevention of vitamin D deficiency: an Endocrine Society clinical practice guideline. JCEM. 2010; 96(7):1911-30. 95-[id number] TSH (17438) Comments: PATIENT WAS FASTINGPERFORMED BY: [email or web address] [email or web address] [id number] TSH 3.700 {uIU/mL} (Normal) Range: 0.450-4.500 [id number] LIPID PANEL (61509) Comments: PATIENT WAS FASTINGPERFORMED BY: [id number] [facility] [id number] LDL/HDL Ratio 1.8 {ratio_units} (Normal) Range: 0.0-3.2 Comments: LDL/HDL Ratio Men Women 1/2 Avg.Risk 1.0 1.5 Av g.Risk 3.6 3.2 2X Avg.Risk 6.2 5.0 3X Avg.Risk 8.0 6.1 LDL Cholesterol Calc 84 mg/dL (Normal) Range: 0-99 VLDL Cholesterol Priscilla 49 mg/dL (Abnormal) Range: 5-40 HDL Cholesterol 46 mg/dL (Normal) Triglycerides 243 mg/dL (Abnormal) Range: 0-149 Cholesterol, Total 179 mg/dL (Normal) Range: 100-199 08-Cwv-002881:08 URINALYSIS, W/ MICRO (88848) Comments: PATIENT WAS FASTINGPERFORMED BY: [email or web address][employer]com70 [facility] [id number] Microscopic Examination See below: (Normal) Comments: Microscopic was indicated and was performed. Nitrite, Urine Negative (Normal) Urobilinogen,Semi-Qn 0.2 mg/dL (Normal) Range: 0.2-1.0 Bilirubin Negative (Normal) Occult Blood Negative (Normal) Ketones Negative (Normal) Glucose Negative (Normal) Protein 2+ (Abnormal) WBC Esterase 1+ (Abnormal) Appearance Clear (Normal) Urine-Color Yellow (Normal) pH 5.5 (Normal) Range: 5.0-7.5 Specific [place] >=1.030 (Abnormal) Range: 1.005-1.030 04-Oeh-053141:08 MICROALBUMIN: CREATININE RATIO Comments: PATIENT WAS FASTINGPERFORMED BY: Mamina ShkolaLos Alamos Medical CenterIfsurf0284 [facility] [id number] (07298) AND (72609) Microalb/Creat Ratio 246.3 {mg/g_creat} (Abnormal) Range: 0.0-30.0 Microalbumin, Urine 433.7 ug/mL (Normal) Comments: Results confirmed ondilution. Creatinine, Urine 176.1 mg/dL (Normal) 39-Nqi-798825:08 METABOLIC PANEL, COMPREHENSIVE Comments: PATIENT WAS FASTINGPERFORMED BY: [facility] Vzudro8611 [facility] [id number] (94802) ALT (SGPT) 26 [iU]/L (Normal) Range: 0-32 [...] Glucose, Serum 158 mg/dL (Abnormal) Range: 65-99 30-Zcb-266026:08 CBC W/AUTO DIFF WBC (88500) Comments: PATIENT WAS FASTINGPERFORMED BY: [facility]6370 [facility] [id number] Immature Grans (Abs) 0.0 {x10E3/uL} (Normal) Range: [...] (Normal) Range: 3.4-10.8 :31 HgA1C , Office (44923) HgA1C , Office 6.6 % (Normal) Range: 4.6 - 7.1 :31 Blood Glucose , Office (80443) Blood Glucose , Office 143 (Normal) :45 CBC W/Diff, Automated Comments: [facility] [address] [place], [place], [address] Absolute Lymph 1.46 {X10_3/ul} (Normal) Range: 0.83-4.51 [...] Range: 4.4-11.0 :45 Comprehensive Metabolic Profil Comments: [facility] [address] [place], [place], [address] GAP 8 (Normal) Range: 5-15 CO2 27.0 [...] 126 mg/dLsuggests DIABETES MELLITUS per A.D.A. criteria. 7-Oqr-806380:45 Prothrombin Time w/INR Comments: [facility] [address] [place], [place], [address] INR 0.9 (Normal) PROTIME 11.6 s (Abnormal) Range: 11.7-14.9 0-Wng-081497:12 HgA1C , Office (86487) HgA1C , Office 6.5 % (Normal) Range: 4.6 - 7.1 3-Vjk-608255:12 Blood Glucose , Office (41619) Blood Glucose , Office 122 (Normal) 61-Vef-86948:39 Lipid Profile Comments: [facility] [address]smrw[address] [place], [address] VLDL 39 mg/dL (Normal) Range: 5-40 LDL [...] 200-240 mg/dL Borderline >240 mg/dL High Risk 18-Wzu-03448:39 Methylmalonic Acid Bld Comments: [facility] (refer to report for specific site)refer to report for address and phone number METHYLM [phone] nmol/L (Normal) Range: 0-378 Comments: Performed at: [address] [id number] Director: Frantz Josue MD, Phone: [phone] :[phone] Vitamin B12 531 pg/mL (Normal) Comments: [facility] [address] [place], [address] Range: 211-911 :39 Vitamin D,25 Hydroxy Comments: [facility] Mkrm[address]oyc6[address] [place], [address] Vitamin D 25-OH 44.7 ng/mL (Normal) Comments: Vitamin D 25(OH) Status Range Deficiency <20 ng/mL (50nmol/L) Insuffciency 20 - 30 ng/mL (50 - 75 nmol/L) Sufficiency 30 - 100 ng/mL (75 - 250 nmol/L) Toxicity >100 ng/mL (>250 nmol/L) :29 Bedside Glucose Comments: [facility] LaboratoryPoint of [address] [place] [address] BEDSIDE GLU 139 mg/dL (Abnormal) Range: 70-110 Comments: No Action RequiredMANAGEMENT OF PATIENT CARE PER NURSING PROTOCOL COLON BIOPSY (CHOOSE See Note (Normal) Comments: [facility] [address] [place], [address] :54 SITE) Comments: Patient: MARICRUZ GRIGSBY : 1940 (76/F) Acct Num: [id number] Phys: Constantine Saunders Unit Num: [id number] Loc: LABSPEC Specimen: [id number] Received: 11/05/16 163 Spe c Type: COLON BX TISSUES [...] one cassette. / RY:edita 11/06/16 TC:1 CPT: 22460 x2 HEADER OPERATION: Colonoscopy with polypectomy PRE-OP [...] Signed Zane Elliott 11/07/16 <signature on file> 57-Nci-091630:47 CBC W/Diff, Automated Comments: [facility] [address] [place], [place], [address] Absolute Lymph 1.88 {X10_3/ul} (Normal) Range: 0.83-4.51 [...] 4.2-5.4 WBC 8.8 K/mm3 (Normal) Range: 4.4-11.0 71-Muq-431428:42 Comprehensive Metabolic Profil Comments: Order Date: 10/10/16Order Info: 0786-1 - *CMP Complete Metabolic PanelOrder Info: 76589-3 - *IBC Iron \E AND E\ Total Iron Binding CapacityOrder Info: 2276-4 - *FerritinComments: Reason:Order Date: 10/10/16Order Info: 31470-3 - *KAPLAMBDA - Dresser Lamda Light ChainsComments: Reason:[facility] [address] [place], [address] GAP 9 (Normal) Range: 5-15 CO2 28.0 [...] <126 mg/dLsuggests IMPAIRED HOMEOSTASIS per A.D.A. criteria. 22-Hob-505070:42 Ferritin Comments: Order Date: 10/10/16Order Info: 0786-1 - *CMP Complete Metabolic PanelOrder Info: 66997-0 - *IBC Iron \E AND E\ Total Iron Binding CapacityOrder Info: 2276-4 - *FerritinComments: Reason:Order Date: 10/10/16Order Info: 29558-8 - *KAPLAMBDA - Dresser Lamda Light ChainsComments: Reason:[facility] [address] [place], [place], [address] FERRITIN 45 ng/mL (Normal) Range: 8-252 42-Aag-980215:42 DEEPALI + Protein Elect, Serum Comments: Order Date: 10/10/16Order Info: 0282-1 - *IMEL DEEPALI + Prot Elec, Serum 1495Order Info: 04857-0 - *KAPLAMBDA - Dresser Lamda Light ChainsOrder Date: 10/10/16Order Info: 0282-1 - *IMEL DEEPALI + Prot Elec, Serum 1495Order Info: 62650-8 - *KAPLAMBDA - Dresser Lamda Light ChainsOrder Date: 10/10/16Order Info: 48131-2 - *KAPLAMBDA - Dresser Lamda Light ChainsIs Patient Fasting? NComments: Reason:[facility] (refer to report for specific site)refer to report for address and phone number NOTE: Comment (Normal) Comments: Protein electrophoresis scan will follow via computer,mail, or preschool disability teacher delivery. DEEPALI RESULT,S Comment (Normal) Comments: Immunofixation shows IgG monoclonal protein with lambdalight chain specificity. A/G RATIO 1.4 (Normal) Range: 0.7-1.7 GLOBULIN, TOTAL 2.8 g/dL (Normal) Range: 2.2-3.9 M-SPIKE 0.3 g/dL (Abnormal) GAMMA GLOBULIN 0.8 g/dL (Normal) Range: 0.4-1.8 BETA GLOBULIN 0.9 g/dL (Normal) Range: 0.7-1.3 XTEUO-2-WSYV 0.9 g/dL (Normal) Range: 0.4-1.0 EJJYJ-9-NCVO 0.2 g/dL (Normal) Range: 0.0-0.4 ALBUMIN 3.7 g/dL (Normal) Range: 2.9-4.4 IMMUNOGL M 100 mg/dL (Normal) Range: 26-217 IMMUNO A 106 mg/dL (Normal) Range: 64-422 IMMUNO G 693 mg/dL (Abnormal) Range: 700-1600 PROTEIN,TOTAL 6.5 g/dL (Normal) Range: 6.0-8.5 61-Dts-164498:42 Iron+Iron Binding Capacity Comments: Order Date: 10/10/16Order Info: 0786-1 - *CMP Complete Metabolic PanelOrder Info: 54553-3 - *IBC Iron \E AND E\ Total Iron Binding CapacityOrder Info: 2276-4 - *FerritinComments: Reason:Order Date: 10/10/16Order Info: 39163-8 - *KAPLAMBDA - Dresser Lamda Light ChainsComments: Reason:[facility] [address] [place], [place], [address] IRON SATURATION 15.9 % (Normal) Range: 15.0-55.0 IRON 49 ug/dL (Abnormal) Range: 50-170 TIBC 309 ug/dL (Normal) Range: 250-450 55-Qpu-653497:42 Dresser Lambda Light Chains Comments: Order Date: 10/10/16Order Info: 0282-1 - *IMEL DEEPALI + Prot Elec, Serum 1495Order Info: 54541-8 - *KAPLAMBDA - Dresser Lamda Light ChainsOrder Date: 10/10/16Order Info: 0282-1 - *IMEL DEEPALI + Prot Elec, Serum 1495Order Info: 05001-0 - *KAPLAMBDA - Dresser Lamda Light ChainsOrder Date: 10/10/16Order Info: 65255-8 - *KAPLAMBDA - Dresser Lamda Light ChainsIs Patient Fasting? NComments: Reason:[facility] (refer to report for specific site)refer to report for address and phone number KAPPA/LAMBDA % 0.98 (Normal) Range: 0.26-1.65 Comments: Performed at: - [facility] [address] [id number] Director: Constantine Christianson PhD, Phone: [phone] FR LAMBDA LT CH 19.06 mg/L (Normal) Range: 5.71-26.30 FR KAPPA LT CHN 18.62 mg/L (Normal) Range: 3.30-19.40 83-Ahk-562106:06 VITAMIN B-12 (CYANOCOBALAMIN) Comments: PATIENT NOT FASTINGPERFORMED BY: [facility] [id number] (10970) Vitamin B12 709 pg/mL (Normal) Range: 211-946 :45 Blood Glucose , Office (18108) Blood Glucose , Office 104 (Normal) :45 HgA1C , Office (00943) HgA1C , Office 6.7 % (Normal) Range: 4.6 - 7.1 :54 CBC W/Diff, Automated Comments: [facility] [address] [place], [place], [address] Absolute Lymph 1.51 {X10_3/ul} (Normal) Range: 0.83-4.51 [...] Range: 4.4-11.0 :54 Comprehensive Metabolic Profil Comments: [facility] [address] [place], [place], [address] GAP 8 (Normal) Range: 5-15 CO2 28.0 [...] 126 mg/dLsuggests DIABETES MELLITUS per A.D.A. criteria. 44-Qjh-57333:54 Lipid Profile Comments: [facility] X[address] [facility] [address] [place], [place], [address] VLDL 38 mg/dL (Normal) Range: 5-40 LDL [...] High Risk :54 Microalb:Creat Ratio,Random UR Comments: [facility] [address] [place], [address] MALB:CREAT 223.2 {mg/g_CRE} (Abnormal) MICROALBUMIN,UR 250.0 mg/L (Normal) UR CREAT 112.00 mg/dL (Normal) :54 Thyroid Stim Hormone (TSH) Comments: [facility] [address] [place], [place], [address] TSH 1.13 {uIU/mL} (Normal) Range: 0.358-3.74 :54 Urinalysis, Complete Comments: How was Urine Obtained? CLEAN [facility] [address] [place], [place], [address] MUCUS, URINE 0 SEEN {/hpf} (Normal) BACTERIA [...] (Normal) CLARITY Clear (Normal) COLOR Yellow (Normal) 91-Voe-47272:54 Vitamin D,25 Hydroxy Comments: [facility] [address] [place], [address] Vitamin D 25-OH 31.6 ng/mL (Normal) Comments: Vitamin D 25(OH) Status Range Deficiency <20 ng/mL (50nmol/L) Insuffciency 20 - 30 ng/mL (50 - 75 nmol/L) Sufficiency 30 - 100 ng/mL (75 - 250 nmol/L) Toxicity >100 ng/mL (>250 nmol/L) 69-Jus-691571:07 VITAMIN B-12 (CYANOCOBALAMIN) Comments: PATIENT NOT FASTINGPERFORMED BY: Syn[facility]yR[facility] [id number] (89908) Vitamin B12 1119 pg/mL (Abnormal) Range: 211-946 83-Igw-974314:23 Microscopic Examination Comments: PATIENT WAS FASTINGPERFORMED BY: [email or web address][employer]70 [place] [id number] Bacteria Few (Normal) Mucus Threads Present (Normal) Epithelial Cells (non renal) 0-10 {/hpf} (Normal) Range: 0 - 10 RBC 0-2 {/hpf} (Normal) Range: 0 - 2 WBC >30 {/hpf} (Abnormal) Range: 0 - 5 83-Cht-836868:23 VITAMIN B-12 (CYANOCOBALAMIN) Comments: PATIENT WAS FASTINGPERFORMED BY: [employer]70 [place] [id number] (91751) Vitamin B12 >2000 pg/mL (Abnormal) Range: 211-946 85-Pjc-443350:23 TSH (78662) Comments: PATIENT WAS FASTINGPERFORMED BY: [employer]70 [place] [id number] TSH 5.380 {uIU/mL} (Abnormal) Range: 0.450-4.500 95-Kso-336008:23 URINALYSIS, W/ MICRO (37881) Comments: PATIENT WAS FASTINGPERFORMED BY: [place] Fox EventsDublin [place] [id number] Microscopic Examination See below: (Normal) Comments: Microscopic was indicated and was performed. Nitrite, Urine Negative (Normal) Urobilinogen,Semi-Qn 0.2 mg/dL (Normal) Range: 0.2-1.0 Bilirubin Negative (Normal) Occult Blood Negative (Normal) Ketones Negative (Normal) Glucose Negative (Normal) Protein Trace (Normal) WBC Esterase 2+ (Abnormal) Appearance Clear (Normal) Urine-Color Yellow (Normal) pH 6.0 (Normal) Range: 5.0-7.5 Specific [place] 1.022 (Normal) Range: 1.005-1.030 :23 MICROALBUMIN: CREATININE RATIO Comments: PATIENT WAS FASTINGPERFORMED BY: Mamina ShkolaJFK Medical CenterQmvhmt4013 [facility] [id number] (59168) AND (14536) Microalb/Creat Ratio 24.2 {mg/g_creat} (Normal) Range: 0.0-30.0 Microalbumin, Urine 35.4 ug/mL (Normal) Creatinine, Urine 146.0 mg/dL (Normal) 18-Hho-502899:23 METABOLIC PANEL, COMPREHENSIVE Comments: PATIENT WAS FASTINGPERFORMED BY: Mamina ShkolaJFK Medical CenterKszqef4895 [facility] [id number] (32738) ALT (SGPT) 25 [iU]/L (Normal) Range: 0-32 [...] Glucose, Serum 143 mg/dL (Abnormal) Range: 65-99 97-Opz-045589:23 CBC W/AUTO DIFF WBC (81854) Comments: PATIENT WAS FASTINGPERFORMED BY: LabCoJFK Medical CenterJfjkfu0047 [facility] [id number] Immature Grans (Abs) 0.0 {x10E3/uL} (Normal) Range: [...] 7.4 {x10E3/uL} (Normal) Range: 3.4-10.8 :23 CALCIFIDIOL (04055) VIT D 25 Comments: PATIENT WAS FASTINGPERFORMED BY: [facility]6370 [facility] [id number] Vitamin D, 25-Hydroxy 28.9 ng/mL (Abnormal) Range: 30.0-100.0 Comments: Vitamin D deficiency has been defined by the [place] ofSt. [facility] Hospitalcine and an Endocrine Society practice guideline as alevel of serum 25-OH vitamin D less than 20 ng/mL (1,2).The Endocrine Society went on to further define vitamin Dinsufficiency as a level between 21 and 29 ng/mL (2).1. IOM ([place] [employer] Medicine). 2010. Dietary reference intakes for calcium and D. [place]: The National Academies Press.2. Rachel MF, Yael NC, Dunia HERRERA, et al. Evaluation, treatment, and prevention of vitamin D deficiency: an Endocrine Society clinical practice guideline. JCEM. 2010; 96(7):1911-30. :22 HgA1C , Office (62869) HgA1C , Office 7.1 % (Normal) Range: 4.6 - 7.1 :22 Blood Glucose , Office (37733) Blood Glucose , Office 171 (Normal) :10 Basic Metabolic Profile (BMP) Comments: Serial Specimen #1, #2 or #3? 1'TROP' Serial specimen #1, #2, #3, or #4: [facility]WTri[facility] [address]jlqyhu7[address] [place], [place], [address] GAP 8 (Normal) Range: 5-15 CO2 28.0 [...] 126 mg/dLsuggests DIABETES MELLITUS per A.D.A. criteria. 9-Nvr-682826:10 CBC W/Diff, Automated Comments: [facility] [address] [place], [place], [address] Absolute Lymph 1.32 {X10_3/ul} (Normal) Range: 0.83-4.51 [...] specimen #1, #2, #3, or #4: [address] [place] [address] [place] [address], [address] CKRI 1.3 % (Normal) Range: 0.0-1.4 [...] specimen #1, #2, #3, or #4: [address] [place] [address] [address]aki4934 [place], [address] TROPONIN-I < 0.02 ng/mL (Normal) Comments: TROPONIN-I EXPECTED VALUES <0.05 NEGATIVE 0.06 - 0.59 AT RISK OF MN > OR = 0.60 SUGGEST MN :55 Blood Glucose , Office (19376) Blood Glucose , Office 117 (Normal) :36 HgA1C , Office (73672) HgA1C , Office 7.1 % (Normal) Range: 4.6 - 7.1 :52 CBC W/Diff, Automated Comments: CBCD WITH WBC PER ORDERWTriHealth [facility] [address]ljxa[address] [place], [place], [address] Absolute Lymph 1.67 {X10_3/ul} (Normal) Range: 0.83-4.51 [...] Range: 4.4-11.0 :52 Comprehensive Metabolic Profil Comments: [facility] [address] [place], [address] GAP 10 (Normal) Range: 5-15 CO2 26.0 [...] specificity.Bence Jorge Protein positive; lambda type.Performed at: [place] [id number] ctor: Constantine Christianson PhD, Phone: [phone] :[phone] Immunofixation, Serum Comments: [facility] (refer to report for specific site)refer to report for address and phone number DEEPALI RESULT,S Comment (Normal) Comments: Immunofixation shows IgG monoclonal protein with lambdalight chain specificity. IMMUNOGL M 112 mg/dL (Normal) Range: 26-217 IMMUNO A 110 mg/dL (Normal) Range: 64-422 IMMUNO G 783 mg/dL (Normal) Range: 700-1600 :52 Dresser Lambda Light Chains Comments: [facility] (refer to report for specific site)refer to report for address and phone number KAPPA/LAMBDA % 1.03 (Normal) Range: 0.26-1.65 FR LAMBDA LT CH 21.11 mg/L (Normal) Range: 5.71-26.30 FR KAPPA LT CHN 21.66 mg/L (Abnormal) Range: 3.30-19.40 :52 Lipid Profile Comments: [facility] Wwydrlskmw9377 [facility] [place], [address] ; review OV 12/02/15 VLDL [...] High Risk :52 Microalb:Creat Ratio,Random UR Comments: [facility] [address] [place], [address] MALB:CREAT 44.5 {mg/g_CRE} (Abnormal) MICROALBUMIN,UR 68.1 mg/L (Normal) UR CREAT 153.00 mg/dL (Normal) :52 Vitamin B12 268 pg/mL (Normal) Comments: [facility] [address] [place], [address] Range: 211-911 Comments: ADDENDA: normal and has f/u this saturday:52 Vitamin D,25 Hydroxy Comments: [facility] [address] [place], [address] Vitamin D 25-OH 48.8 ng/mL (Normal) Comments: Vitamin D 25(OH) Status Range Deficiency <20 ng/mL (50nmol/L) Insuffciency 20 - 30 ng/mL (50 - 75 nmol/L) Sufficiency 30 - 100 ng/mL (75 - 250 nmol/L) Toxicity >100 ng/mL (>250 nmol/L) :15 Basic Metabolic Profile (BMP) Comments: [facility] [address] [place], [address] GAP 10 (Normal) Range: 5-15 CO2 25.0 [...] A.D.A. criteria. :15 CBC W/Diff, Automated Comments: [facility] [address] [place], [place], [address] RED CELL MORPH NORM C+C {NORMAL} (Normal) [...] (Abnormal) Range: 4.4-11.0 :08 HgA1C , Office (72441) HgA1C , Office 6.8 % (Normal) Range: 4.6 - 7.1 7-Fpf-950532:30 FERRITIN (01846) Comments: PATIENT WAS FASTINGPERFORMED BY: LabCoJFK Medical CenterDyotrm0877 [facility] [id number] Ferritin, Serum 121 ng/mL (Normal) Range: 15-150 8-Shg-706556:30 IRON (06509) Comments: PATIENT WAS FASTINGPERFORMED BY: [facility]6370 [facility] [id number] Iron, Serum 56 ug/dL (Normal) Range: 35-155 [...] - 159 >60 years 27 - 139 2-Tlo-961584:30 TSH (62073) Comments: PATIENT WAS FASTINGPERFORMED BY: [facility]6370 [facility] [id number] TSH 1.660 {uIU/mL} (Normal) Range: 0.450-4.500 3-Bzb-244650:30 LIPID PANEL (79583) Comments: PATIENT WAS FASTINGPERFORMED BY: EmerGeo SolutionsSelect [facility] Hospital[facility]6370 [facility] [id number] LDL/HDL Ratio 2.1 {ratio_units} (Normal) Range: 0.0-3.2 [...] Cholesterol, Total 190 mg/dL (Normal) Range: 100-199 8-Uru-477998:30 METABOLIC PANEL, COMPREHENSIVE Comments: PATIENT WAS FASTINGPERFORMED BY: [place] 4571870 [facility] [id number] (35060) ALT (SGPT) 24 [iU]/L (Normal) Range: 0-32 [...] Glucose, Serum 122 mg/dL (Abnormal) Range: 65-99 3-Iof-193596:30 Vitamin D Hydroxy (41902) Comments: PATIENT WAS FASTINGPERFORMED BY: [facility] Jpldbk7291 [facility] [id number] Vitamin D, 25-Hydroxy 25.3 ng/mL (Abnormal) Range: 30.0-100.0 Comments: Vitamin D deficiency has been defined by the [place] of[place] and an Endocrine Society practice guideline as alevel of serum 25-OH vitamin D less than 20 ng/mL (1,2).The Endocrine Society went on to further define vitamin Dinsufficiency as a level between 21 and 29 ng/mL (2).1. IOM ([place]). 2010. Dietary reference intakes for calcium and D. [place]: The National Academies Press.2. Rachel MF, Yael MARLEY, Dunia HERRERA, et al. Evaluation, treatment, and prevention of vitamin D deficiency: an Endocrine Society clinical practice guideline. JCEM. 2010; 96(7):1911-30. 2-Ibe-678414:30 CBC W/AUTO DIFF WBC Comments: PATIENT WAS FASTINGPERFORMED BY: LabCoJFK Medical CenterIbguke1932 [facility] [id number] Information: [id number] (42947) Immature Grans (Abs) 0.0 {x10E3/uL} (Normal) Range: [...] 3.77-5.28 WBC 8.2 {x10E3/uL} (Normal) Range: 3.4-10.8 6-Gyu-308860:30 serum free light chains Comments: PATIENT WAS FASTINGPERFORMED BY: Unbxdlin6370 [facility] [id number] (53853) Dresser/Lambda Ratio,S 0.81 (Normal) Range: 0.26-1.65 Free Lambda Lt Chains,S 17.93 mg/L (Normal) Range: 5.71-26.30 Free Dresser Lt Chains,S 14.55 mg/L (Normal) Range: 3.30-19.40 :08 urine immunofixation (39816) Comments: PATIENT NOT FASTINGPERFORMED BY: Unbxdlin6370 [facility] [id number] Information: SRC:UR [id number] DEEPALI Interpretation:U IFEGL (Normal) Comments: 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 9-Ufo-754452:30 serum immunofixation (42222) Comments: PATIENT WAS FASTINGPERFORMED BY: Drimmi Fschrf6319 [facility] [id number] Immunoglobulin M, Qn, Serum 99 mg/dL (Normal) Range: 40-230 Immunoglobulin A, Qn, Serum 107 mg/dL (Normal) Range: 91-414 Immunoglobulin G, Qn, Serum 814 mg/dL (Normal) Range: 700-1600 Immunofixation Result, Serum IFEGL (Normal) Comments: Immunofixation shows IgG monoclonal protein with lambda light chainspecificity. :49 CBC W/Diff, Automated Comments: [facility] [address] [place], [place], [address] Absolute Lymph 0.99 {X10_3/ul} (Normal) Range: 0.83-4.51 [...] K/mm3 (Normal) Range: 4.4-11.0 :49 Ferritin Comments: [address] [place], [address] FERRITIN 80 ng/mL (Normal) Range: 8-252 :49 Hemoglobin A1c Comments: [address] [place], [address] HGB A1C 6.4 % (Abnormal) Range: 4.2-6.3 :49 Iron Comments: [address] [place], [address] IRON 43 ug/dL (Abnormal) Range: 50-170 :49 Iron Binding Capacity,Total Comments: [address] [place], [address] TIBC 336 ug/dL (Normal) Range: 250-450 :49 Protein Electro.Ur-Random Comments: [facility] (refer to report for specific site)refer to report for address and phone number M-SPIKE,U Test not performed (Normal) GAMMA GLOB,U Test not performed (Normal) Comments: Test not performed BETA GLOB,U Test not performed (Normal) Comments: Test not performed UOJEZ-1-CYDY,U Test not performed (Normal) Comments: Test not performed IJZKT-3-DKRN,U Test not performed (Normal) Comments: Test not [...] electrophoresis scan will follow via computer,mail, or preschool disability teacher delivery. NOTE: Comment (Normal) Comments: The SPE [...] electrophoresis scan will follow via computer,mail, or preschool disability teacher delivery. A/G RATIO 1.5 (Normal) Range: 0.7-2.0 [...] 6.0-8.5 :49 Thyroid Stim Hormone (TSH) Comments: [facility] [address]be[address] [place], [place], [address] TSH 4.43 {uIU/mL} (Abnormal) Range: 0.358-3.74 :49 Vitamin B12 431 pg/mL (Normal) Comments: [facility] [address] [place], [place], [address] Range: 211-911 Comments: ADDENDA: has apt today :58 AFP, Tumor Marker Comments: Is Patient ? [facility] (refer to report for specific site)refer to report for address and phone number AFP TUMOR 2253 4.9 ng/mL (Normal) Range: 0.0-8.3 Comments: [place] ECLIA methodologyPerformed at: [employer] LabCo[address] [id number] Director: Constantine Christianson PhD, Phone: [phone] :[phone] CBC W/Diff, Automated Comments: [facility] [address] [place], [place], [address] Absolute Lymph 1.46 {X10_3/ul} (Normal) Range: 0.83-4.51 [...] 4.2-5.4 WBC 7.3 K/mm3 (Normal) Range: 4.4-11.0 81-Wxz-60493:58 Comprehensive Metabolic Profil Comments: [facility] [address] [place], [place], [address] GAP 7 (Normal) Range: 5-15 CO2 28.0 [...] per A.D.A. criteria. :58 Lipid Profile Comments: [facility] [address] [place], [address] ; non-emergent and has apth this [...] :58 Vitamin B12 278 pg/mL (Normal) Comments: [facility] [id number] [place], [address] Range: 211-911 :58 Vitamin D,25 Hydroxy Comments: [facility] [id number] [place], [address] Vitamin D 25-OH 38.4 ng/mL (Normal) Comments: Vitamin D 25(OH) Status Range Deficiency <20 ng/mL (50nmol/L) Insuffciency 20 - 30 ng/mL (50 - 75 nmol/L) Sufficiency 30 - 100 ng/mL (75 - 250 nmol/L) Toxicity >100 ng/mL (>250 nmol/L) :07 HgA1C , Office (55201) HgA1C , Office 6.5 % (Normal) Range: 4.6 - 7.1 :43 AFP, Tumor Marker Comments: Is Patient ? NTest performed at:[facility] [id number] [place] [address] AFP TUMOR 2253 4.8 ng/mL (Normal) Range: 0.0-8.3 Comments: Patricia ECLIA methodologyPerformed at: CB - [facility] [address] [id number] Director: Arnold Jefferson PhD, Phone: [phone] CBC W/Diff, Automated Comments: Test performed at:[facility] Yzgacbteab3849 [facility] [place] [address] Absolute Lymph 1.16 {X10_3/ul} (Normal) [...] :43 Comprehensive Metabolic Profil Comments: Test performed at:[facility] Iwcwratuwz9176 [facility]. [place], [place] [id number] GAP 11 (Normal) Range: 5-15 CO2 24.0 [...] 126 mg/dLsuggests DIABETES MELLITUS per A.D.A. criteria. 77-Ayi-35715:43 Lipid Profile Comments: Test performed at:[facility] Ajumsnswvr[address] [place], [place] [id number] VLDL 61 mg/dL (Abnormal) Range: 5-40 LDL [...] :43 Microalb:Creat Ratio,Random UR Comments: Test performed at:[facility] Aeqobcmtkf[address] [place] [id number] MALB:CREAT 15.9 {mg/g_CRE} (Normal) MICROALBUMIN,UR 19.2 mg/L (Normal) UR CREAT 120.3 mg/dL (Normal) :43 Thyroid Stim Hormone (TSH) Comments: Test performed at:[facility] [address]fcvd[address] [place] [address] TSH 2.19 {uIU/mL} (Normal) Range: 0.358-3.74 :43 Vitamin B12 261 pg/mL (Normal) Comments: Test performed at:[facility] Evhrlogtzd[address] [place] [address] Range: 211-911 Comments: ADDENDA: nl and pt has apt tomorrow :43 Vitamin D,25 Hydroxy Comments: Test performed at:[facility] Mlq[address]ujxwx64[address] [place] [address] Vitamin D 25-OH 30.9 ng/mL (Normal) Comments: Vitamin D 25(OH) Status Range Deficiency <20 ng/mL (50nmol/L) Insuffciency 20 - 30 ng/mL (50 - 75 nmol/L) Sufficiency 30 - 100 ng/mL (75 - 250 nmol/L) Toxicity >100 ng/mL (>250 nmol/L) :38 HgA1C , Office (74658) HgA1C , Office 6.7 % (Normal) Range: 4.6 - 7.1 :56 AFP, Tumor Marker Comments: Is Patient ? NTest performed at:[facility] Zitewbhmrf[address] [place] [id number] ; appt 02/15 AFP TUMOR 2253 4.8 ng/mL (Normal) Range: 0.0-8.3 Comments: Patricia ECLIA methodologyPerformed at: - [facility]CoJ[facility] CenterMypmdk1451 [place], [place] [id number] Director: Arnold Jefferson PhD, Phone: [phone] :[phone] CBC W/Diff, Automated Comments: Test performed at:[facility] Qcdjewlxbk1750 [facility] [place] [address] Absolute Lymph 2.37 {X10_3/ul} (Normal) [...] 4.4-11.0 :56 Lipid Profile Comments: Test performed at:[facility] Ahmy[address]ubq6[address] [place] [address] VLDL 26 mg/dL (Normal) Range: [...] :56 Partial Thromboplast Time Comments: Test performed at:[facility] Tyfxqcqtfc5866 [facility] [place] [address] PTT 30.1 s (Normal) Range: 24.1-36.2 :56 Prothrombin Time w/INR Comments: Test performed at:[facility] [address] [place] [address] INR 1.0 (Normal) PROTIME 12.8 s (Normal) Range: 11.7-14.9 :56 Thyroid Stim Hormone (TSH) Comments: Test performed at:[facility] Gzwsyxcgur[address] [place] [address] TSH 5.17 {uIU/mL} (Abnormal) Range: 0.358-3.74 :56 Vitamin B12 293 pg/mL (Normal) Comments: Test performed at:[facility] Kwnalwfynt9707 [place] [address] Range: 211-911 :56 Vitamin D,25 Hydroxy Comments: Test performed at:[facility] Vxbytisysn9503 [facility] [place] [address] Vitamin D 25-OH 32.0 ng/mL (Normal) Comments: Vitamin D 25(OH) Status Range Deficiency <20 ng/mL (50nmol/L) Insuffciency 20 - 30 ng/mL (50 - 75 nmol/L) Sufficiency 30 - 100 ng/mL (75 - 250 nmol/L) Toxicity >100 ng/mL (>250 nmol/L) 15-Hfv-111549:07 HgA1C , Office (05543) HgA1C , Office 6.3 % (Normal) Range: 4.6 - 7.1 :33 CBC W/Diff, Automated Comments: Test performed at:[facility] Hmzszpgvwg[address] [place], [place] [id number] ; non- emergent till apt Absolute Lymph [...] :33 Comprehensive Metabolic Profil Comments: Test performed at:[facility] Sxhb[address]obfz13[address] [place] [address] GAP 4 (Abnormal) Range: 5-15 CO2 28.0 [...] criteria. :33 Lipid Profile Comments: Test performed at:[facility] D[address]ewqvey[address] [place], [place] [address] VLDL 29 mg/dL (Normal) Range: 5-40 LDL [...] B12 394 pg/mL (Normal) Comments: Test performed at:[facility] Xqx[address] [place] [address] Range: 211-911 :33 Vitamin D,25 Hydroxy Comments: Test performed at:[facility] Wyixqqthgl9[address] [place] [address] Vitamin D 25-OH 39.6 ng/mL (Normal) Comments: Vitamin D 25(OH) Status Range Deficiency <20 ng/mL (50nmol/L) Insuffciency 20 - 30 ng/mL (50 - 75 nmol/L) Sufficiency 30 - 100 ng/mL (75 - 250 nmol/L) Toxicity >100 ng/mL (>250 nmol/L) :10 HgA1C , Office (12196) HgA1C , Office 6.4 % (Normal) Range: [...] CHOL 167 mg/dL (Normal) Comments: <200 mg/dL Tudslbmvs319-762 mg/dL Borderline>240 mg/dL High Risk TRIG 200 mg/dL (Abnormal) Range: 0-199 Comments: Serum Triglycerides Reference IntervalNormal <150 mg/dLBorderline high 150 - 199 mg/dLHigh 200 - 499 mg/ dLVery High > or = 500 mg/dL :42 TIBC 275 ug/dL (Normal) Range: 250-450 :42 TSH 2.12 {uIU/mL} (Normal) Range: 0.358-3.74 12-Vpb-416997:10 FERRITIN (70314) Comments: PATIENT NOT FASTINGPERFORMED BY: [facility] [id number] Ferritin, Serum 133 ng/mL (Normal) Range: 15-150 93-Bne-310407:10 IRON BINDING CAPACITY Comments: PATIENT NOT FASTINGPERFORMED BY: [facility] [id number] Information: [id number] (TIBC) (49261) Iron Saturation 20 % (Normal) Range: 15-55 Iron, Serum 62 ug/dL (Normal) Range: 35-155 UIBC 241 ug/dL (Normal) Range: 150-375 Iron Bind.Cap.(TIBC) 303 ug/dL (Normal) Range: 250-450 43-Qja-062480:10 VITAMIN B-12 (CYANOCOBALAMIN) Comments: PATIENT NOT FASTINGPERFORMED BY: [facility] [id number] (57905) Vitamin B12 421 pg/mL (Normal) Range: 211-946 22-Epf-931138:10 TSH (30325) Comments: PATIENT NOT FASTINGPERFORMED BY: [facility] [id number] TSH 1.150 {uIU/mL} (Normal) Range: 0.450-4.500 38-Fte-651540:37 HgA1C , Office (34307) HgA1C , Office 6.1 % (Normal) Range: 4.6 - 7.1 :10 CBC with manual diff Comments: PATIENT WAS FASTINGPERFORMED BY: [facility]CoJFK [facility] CenterQvieoj5616 [facility] [id number] Information: [id number] (80236) Immature Grans (Abs) 0.0 {x10E3/uL} (Normal) Range: [...] 3.77-5.28 WBC 8.2 {x10E3/uL} (Normal) Range: 3.4-10.8 8-Pdf-452046:10 Metabolic Panel, Comprehensive Comments: PATIENT WAS FASTINGPERFORMED BY: [facility]CoJ[facility] CenterQryvzp9272 [facility] [id number] (34932) ALT (SGPT) 11 [iU]/L (Normal) Range: 0-32 [...] Glucose, Serum 129 mg/dL (Abnormal) Range: 65-99 8-Eji-139909:10 Lipid Panel (25213) Comments: PATIENT WAS FASTINGPERFORMED BY: Mamina ShkolaJFK Medical CenterHkdfnj0654 [facility] [id number] LDL/HDL Ratio 1.4 {ratio_units} (Normal) Range: 0.0-3.2 [...] METABOLIC PANEL, Comments: PATIENT NOT FASTINGPERFORMED BY: Mamina ShkolaJFK Medical CenterNvwoxe8207 [facility] [id number] Information: [id number] COMPREHENSIVE (71899) ALT (SGPT) 15 [iU]/L (Normal) Range: 0-32 [...] 133 mg/dL (Abnormal) Range: 65-99 :14 TSH (40504) Comments: PATIENT NOT FASTINGPERFORMED BY: [facility]CoJ[facility] CenterWzkwll2918 [facility] [id number] TSH 0.182 {uIU/mL} (Abnormal) Range: 0.450-4.500 :40 [...] 4.2-5.4 WBC 5.4 K/mm3 (Normal) Range: 4.4-11.0 6-Mar-77527:40 CMP GAP 10 (Normal) Range: 5-15 CO2 [...] CHOL 99 mg/dL (Normal) Comments: <200 mg/dL Oqagbpyna115-811 mg/dL Borderline>240 mg/dL High Risk :40 MIACRE [...] CHOL 148 mg/dL (Normal) Comments: <200 mg/dL Moaqxzrdd662-200 mg/dL Borderline>240 mg/dL High Risk HDL 46 [...] - 250 nmol/L)Toxicity >100 ng/mL (>250 nmol/L) 26-Rgv-206018:27 HgA1C , Office (78434) HgA1C , Office 6.7 % (Normal) Range: 4.6 - 7.1 :17 METABOLIC PANEL, COMPREHENSIVE Comments: PATIENT WAS FASTINGPERFORMED BY: Diabeto70 [facility] [id number] (21293) ALT (SGPT) 16 [iU]/L (Normal) Range: 0-32 [...] mg/dL (Abnormal) Range: 65-99 :17 LIPID PANEL (76270) Comments: PATIENT WAS FASTINGPERFORMED BY: Cennox6370 [facility] [id number] LDL/HDL Ratio 2.0 {ratio_units} (Normal) Range: 0.0-3.2 [...] MANUAL DIFF Comments: PATIENT WAS FASTINGPERFORMED BY: LabCoJFK [facility] CenterTtmwgz0107 [facility] [id number] Information: [id number] (76693) Immature Grans (Abs) 0.0 {x10E3/uL} (Normal) Range: [...] B-12 (CYANOCOBALAMIN) Comments: PATIENT WAS FASTINGPERFORMED BY: [facility]CoJFK [facility] CenterBjowpb8970 [facility] [id number] (18381) Vitamin B12 696 pg/mL (Normal) Range: 211-946 :17 Vitamin D Hydroxy (91793) Comments: PATIENT WAS FASTINGPERFORMED BY: [facility]CoJ[facility] CenterJfhpyk3408 [facility] [id number] Vitamin D, 25-Hydroxy 29.3 ng/mL (Abnormal) Range: 30.0-100.0 Comments: Vitamin D deficiency has been defined by the [place] [facility] and an Endocrine Society practice guideline as alevel of serum 25-OH vitamin D less than 20 ng/mL (1,2).The Endocrine Society went on to further define vitamin Dinsufficiency as a level between 21 and 29 ng/mL (2).1. IOM ([place] [employer]). 2010. Dietary reference intakes for calcium and D. [place]: The National Academies Press.2. Rachel CAMACHO, Yael MARLEY, Dunia HERRERA, et al. Evaluation, treatment, and prevention of vitamin D deficiency: an Endocrine Society clinical practice guideline. JCEM. 2010; 96(7):1911-30. 07-Vdi-138092:29 HgA1C , Office (54719) HgA1C , Office 7.0 % (Normal) Range: 4.6 - 7.1 2-Agq-206459:14 B12 794 pg/mL (Normal) Range: 211-911 Comments: Effective 201227-Dec-20123-Iqs-268278:14 VITD 37.5 ng/mL (Normal) Comments: Vitamin D 25(OH) Status RangeDeficiency <20 ng/mL (50nmol/L)Insufficiency 20 - 30 ng/mL (50 - 75 nmol/L)Sufficiency 30 - 100 ng/mL (75 - 250 nm ol/L)Toxicity >100 ng/mL (250 nmol/L)Effective 201201-Dec-20125-Fjp-705124:13 CHEST PA AND LATERAL Radiology Report See [...] Tate D.O.December 01, 2012 at 12:40:54 PM [id number] Signed DS/DS If you are the referring physician and would like to consult with theradiologist who provided this i nterpretation, please contact Eulalio Tate D.O. at [phone]. If this radiologist is unavailable, you will bedirected to another radiologist to assist. If you are a patient with a question regarding t his report, pleasecontactyour referring physician directly. Professional Interpretation Provided By: [employer], Phone , These documents contain legally protected [...] 12/01/12 1244 Sign by: Mack Peterson DO 00-Ocb-492669:20 Upper Respiratory Culture Comments: PATIENT NOT FASTINGPERFORMED BY: LabCoJFK [facility] CenterIkibww7848 [facility] [id number] Information: SRC: THROAT Result 1 RRF (Normal) Comments: Routine respiratory alton Upper Respiratory Culture Final report (Normal) 10-Rtf-424490:06 Rapid Strep Test, Office (88445) Rapid Strep Test, Office Negative (Normal) 55-Mhd-902120:32 BILAT SCRN DIGITAL & CAD Radiology Report [...] Wayne M.D.November 18, 2012 at 12:51:57 PM [id number] Signed GP/GP If you are the referring physician and would like to consult with theradiologist who provid ed this interpretation, please contact Todd Claudio. at [phone]. If this radiologist is unavailable, youwill be directed to another radiologist to assist. If you are a patient with a ques tion regarding this report, pleasecontactyour referring physician directly. Professional Interpretation Provided By: [employer], Phone , These documents contain legally pr [...] 11/18/12 1254 Sign by: Teo Wayne MD 9-Eqw-220495:24 URINE RANI CULTURE-IDENTIFICATN Comments: PATIENT NOT FASTINGPERFORMED BY: [employer] Ffjxeq4093 [facility] [id number] Information: [id number] (15816) Result 1 MUG (Normal) Comments: Mixed urogenital flora10,000-25,000 colony forming units per mL Urine Final report (Normal) Culture,Comprehensive 16-Ewk-469645:50 METABOLIC PANEL, Comments: PATIENT NOT FASTINGPERFORMED BY: SmashFlyJFK Medical CenterSveqfm0151 [facility] [id number] Information: ADD [id number] AND DRAW FEE 99 6660 COMPREHENSIVE (68651) ALT (SGPT) 14 [iU]/L (Normal) Range: 0-32 [...] Glucose, Serum 109 mg/dL (Abnormal) Range: 65-99 2-Dyy-421827:42 HgA1C , Office (03403) HgA1C , Office 6.3 % (Normal) Range: 4.6 - 7.1 :04 Microscopic Examination Comments: PATIENT NOT FASTINGPERFORMED BY: LabCoJFK Medical CenterNgpcvs1045 [facility] [id number] Bacteria Few (Normal) Mucus Threads Present (Normal) Cast Type Hyaline casts (Normal) Casts Present {/lpf} (Abnormal) Epithelial Cells (non renal) 0-10 {/hpf} (Normal) Range: 0 - 10 RBC 0-3 {/hpf} (Normal) Range: 0 - 3 WBC 6-10 {/hpf} (Abnormal) Range: 0 - 5 :04 VITAMIN B-12 (CYANOCOBALAMIN) Comments: PATIENT NOT FASTINGPERFORMED BY: [facility]6370 [facility] [id number] (74330) Vitamin B12 1228 pg/mL (Abnormal) Range: 211-946 :04 Vitamin D Hydroxy (53837) Comments: PATIENT NOT FASTINGPERFORMED BY: [facility]6370 [facility] [id number] Vitamin D, 25-Hydroxy 21.9 ng/mL (Abnormal) Range: 30.0-100.0 Comments: Vitamin D deficiency has been defined by the [place] [facility] and an Endocrine Society practice guideline as alevel of serum 25-OH vitamin D less than 20 ng/mL (1,2).The Endocrine Society went on to further define vitamin Dinsufficiency as a level between 21 and 29 ng/mL (2).1. IOM ([place] [employer]). 2010. Dietary reference intakes for calcium and D. [place]: The National Academies Press.2. Rachel MF, Yael NC, Dunia HERRERA, et al. Evaluation, treatment, and prevention of vitamin D deficiency: an Endocrine Society clinical practice guideline. JCEM. 2010; 96(7):1911-30. :04 URINALYSIS, W/ MICRO (74692) Comments: PATIENT NOT FASTINGPERFORMED BY: [facility]6370 [facility] [id number] Microscopic Examination See below: (Normal) Nitrite, Urine Negative (Normal) Bilirubin Negative (Normal) Urobilinogen,Semi-Qn 0.2 mg/dL (Normal) Range: 0.0-1.9 Occult Blood Negative (Normal) Ketones Negative (Normal) Glucose Negative (Normal) Protein Negative (Normal) WBC Esterase 1+ (Abnormal) Appearance Clear (Normal) Urine-Color Yellow (Normal) pH 5.5 (Normal) Range: 5.0-7.5 Specific [place] 1.024 (Normal) Range: 1.005-1.030 :04 CBC WITH MANUAL DIFF Comments: PATIENT NOT FASTINGPERFORMED BY: [facility]6370 [facility] [id number] Information: [id number] (87296) Immature Grans (Abs) 0.0 {x10E3/uL} (Normal) Range: [...] 3.77-5.28 WBC 7.2 {x10E3/uL} (Normal) Range: 4.0-10.5 37-Tqe-00626:04 METABOLIC PANEL, COMPREHENSIVE Comments: PATIENT NOT FASTINGPERFORMED BY: [facility]6370 [facility] [id number] (31597) ALT (SGPT) 13 [iU]/L (Normal) Range: 0-32 [...] mg/dL (Abnormal) Range: 65-99 :04 LIPID PANEL (68555) Comments: PATIENT NOT FASTINGPERFORMED BY: LabCoJFK Medical CenterFoibfv8080 [facility] [id number] LDL Cholesterol Calc 103 mg/dL (Abnormal) Range: [...] pg/mL (Normal) Range: 211-946 Comments: Performed at: [facility] [address] [id number] Director: Arnold Jefferson PhD, Phone: [phone] :[phone] CMP GAP 9 (Normal) Range: 5-15 [...] 250 nmol/L) Toxicity >100 ng/mL (250 nmol/L)Effective 201215-Aug-201250-Zqa-443560:20 Metabolic Panel, Basic Comments: PATIENT NOT FASTINGPERFORMED BY: [facility] [id number] Information: [id number] (46346) Calcium, Serum 10.2 mg/dL (Normal) Range: 8.6-10.2 [...] Glucose, Serum 99 mg/dL (Normal) Range: 65-99 5-Wke-212669:24 Microscopic Examination Comments: PATIENT NOT FASTINGPERFORMED BY: [employer]70 [facility] [id number] Bacteria Few (Normal) Mucus Threads Present (Normal) Epithelial Cells (non renal) 0-10 {/hpf} (Normal) Range: 0 - 10 RBC 0-3 {/hpf} (Normal) Range: 0 - 3 WBC 6-10 {/hpf} (Abnormal) Range: 0 - 5 3-Efn-751443:24 Vitamin D Hydroxy (26410) Comments: PATIENT NOT FASTINGPERFORMED BY: [employer] Rujcch0827 [facility] [id number] Vitamin D, 25-Hydroxy 21.7 ng/mL (Abnormal) Range: 30.0-100.0 Comments: Vitamin D deficiency has been defined by the [place] and an Endocrine Society practice guideline as alevel of serum 25-OH vitamin D less than 20 ng/mL (1,2).The Endocrine Society went on to further define vitamin Dinsufficiency as a level between 21 and 29 ng/mL (2).1. IOM ([place] [employer]). 2010. Dietary reference intakes for calcium and D. [place]: The National Academies Press.2. Rachel MF, Yael MARLEY, Dunia HERRERA, et al. Evaluation, treatment, and prevention of vitamin D deficiency: an Endocrine Society clinical practice guideline. JCEM. 2010; 96(7):1911-30. 7-Gsl-909699:24 VITAMIN B-12 (CYANOCOBALAMIN) Comments: PATIENT NOT FASTINGPERFORMED BY: [employer]rp Kbzrmk4028 [facility] [id number] (36830) Vitamin B12 431 pg/mL (Normal) Range: 211-946 2-Sby-177564:24 URINALYSIS, W/ MICRO (52924) Comments: PATIENT NOT FASTINGPERFORMED BY: SmashFlyrp Foieex2009 [facility] [id number] Microscopic Examination MICRON (Normal) Comments: Microscopic follows if indicated. Microscopic Examination See below: (Normal) Nitrite, Urine Negative (Normal) Urobilinogen,Semi-Qn 0.2 mg/dL (Normal) Range: 0.0-1.9 Bilirubin Negative (Normal) Ketones Negative (Normal) Occult Blood Negative (Normal) Glucose Negative (Normal) Protein Negative (Normal) WBC Esterase Negative (Normal) Appearance Clear (Normal) pH 6.5 (Normal) Range: 5.0-7.5 Urine-Color Yellow (Normal) Specific [place] 1.022 (Normal) Range: 1.005-1.030 :24 CBC WITH MANUAL DIFF Comments: PATIENT NOT FASTINGPERFORMED BY: LabCoJFK Medical CenterDwuemy5524 [facility] [id number] Information: [id number] (24250) Immature Grans (Abs) 0.0 {x10E3/uL} (Normal) Range: [...] 3.77-5.28 WBC 7.9 {x10E3/uL} (Normal) Range: 4.0-10.5 1-Bpl-418929:24 METABOLIC PANEL, COMPREHENSIVE Comments: PATIENT NOT FASTINGPERFORMED BY: LabCoJFK Medical CenterRbbmoh1923 [facility] [id number] (60652) ALT (SGPT) 16 [iU]/L (Normal) Range: 0-32 [...] Glucose, Serum 107 mg/dL (Abnormal) Range: 65-99 8-Rsd-849120:24 TSH (18792) Comments: PATIENT NOT FASTINGPERFORMED BY: Mamina ShkolaJFK Medical CenterYrzirw5060 [facility] [id number] TSH 2.000 {uIU/mL} Range: 0.450-4.500 (Normal) CCP Antibodies IgG/IgA 1 {units} (Normal) Comments: PATIENT NOT FASTINGPERFORMED BY: Mamina ShkolaJFK Medical CenterWhafni1365 [facility] [id number] BY: LabCo[address] [id number] :39 Range: 0-19 Comments: Negative <20 Weak positive 20 - 39 Moderate positive 40 - 59 Strong positive >59 4-Ysa-560974:39 Systemic Lupus Profile Comments: PATIENT NOT FASTINGPERFORMED BY: CB [facility] Pqndfb6999 [place] [id number] BY: BN [facility] [address] [id number] Information: [id number] (26200) Anti-DNA (DS) Ab Qn <1 {IU/mL} (Normal) Range: 0-9 Comments: Negative <5 Equivocal 5 - 9 Positive >9 Sjogren's Anti-SS-B 0.5 {AI} (Normal) Range: 0.0-0.9 Sjogren's Anti-SS-A 0.3 {AI} (Normal) Range: 0.0-0.9 Antichromatin Antibodies <0.2 {AI} (Normal) Range: 0.0-0.9 RA Latex Turbid. 8.5 {IU/mL} (Normal) Range: 0.0-13.9 [place] Antibodies <0.2 {AI} (Normal) Range: 0.0-0.9 MARKETING TECHNOLOGIST Antibodies <0.2 {AI} (Normal) Range: 0.0-0.9 59-Vet-663842:27 HgA1C , Office (10859) HgA1C , Office 6.2 % (Normal) Range: 4.6 - 7.1 :27 Blood Glucose , Office (73494) Blood Glucose , Office 108 (Normal) :45 [...] D deficiency has been defined by the [place] and an Endocrine Society practice guideline as alevel of serum 25-OH vitamin D less than 20 ng/mL (1,2).The Endocrine Society went on to further define vitamin Dinsufficiency as a level between 21 and 29 ng/mL (2).1. IOM ([place]). 2010. Dietary reference intakes for calcium and D. [place]: The National Academies Press.2. Rachel MF, Yael NC, Dunia HERRERA, et al. Evaluation, treatment, and prevention of vitamin D deficiency: an Endocrine Society clinical practice guideline. JCEM. 2010; 96(7): 1911-30.Performed at: - [facility] [address] [place], [place] [id number] Director: Arnold Jefferson PhD, Phone: [phone] :[phone] Blood Glucose , Office (89045) Blood Glucose , Office 131 (Normal) :58 HgA1C , Office (08318) HgA1C , Office 6.8 % (Normal) Range: [...] mg/dL suggests DIABETES MELLITUS per A.D.A. criteria. 75-Sea-134133:12 LIPID LDL 104 mg/dL (Normal) Range: 0-130 [...] 200-240 mg/dL Borderline >240 mg/dL High Risk 35-Tll-279997:12 TSH 2.08 {uIU/mL} (Normal) Range: 0.358-3.74 95-Crn-475504:12 VITD 34.7 ng/mL (Normal) Range: 30.0-100.0 Comments: Vitamin D deficiency has been defined by the [place] and an Endocrine Society practice guideline as alevel of serum 25-OH vitamin D less than 20 ng/mL (1,2).The Endocrine Society went on to further define vitamin Dinsufficiency as a level between 21 and 29 ng/mL (2).1. IOM ([place]). 2010. Dietary reference intakes for calcium and D. [place]: The National Academies Press.2. Rachel MF, Yael MARLEY, Dunia HERRERA, et al. Evaluation, treatment, and prevention of vitamin D deficiency: an Endocrine Society clinical practice guideline. JCEM. 2010; 96(7): 1911-30.Performed at: - [facility] [id number] Director: Tona Emmanuel MD, Phone: [phone] 88-Ecr-075630:15 HgA1C , Office (81293) HgA1C , Office 5.8 % (Normal) Range: 4.6 - 7.1 38-Isd-058808:15 Blood Glucose , Office (65674) Blood Glucose , Office 113 (Normal) :30 [...] D deficiency has been defined by the [place] and an Endocrine Society practice guideline as alevel of serum 25-OH vitamin D less than 20 ng/mL (1,2).The Endocrine Society went on to further define vitamin Dinsufficiency as a level between 21 and 29 ng/mL (2).1. IOM ([place]). 2010. Dietary reference intakes for calcium and D. [place]: The National Academies Press.2. Rachel MF, Yael MARLEY, Dunia HERRERA, et al. Evaluation, treatment, and prevention of vitamin D deficiency: an Endocrine Society clinical practice guideline. JCEM. 2010; 96(7): 1911-30.Performed at: [address] [id number] Director: Tona Emmanuel MD, Phone: [phone] 12-Ipa-148858:02 CTA NECK W/WO CONTRAST Radiology Report See [...] ologist regarding this report, please call our [id number] line @ Dictated on 10/08/11 [address]ER,Davidranscribed on 10/09/11 0856 by ITS IMPORTSign by Hema STREETER,Juana hairston on 10/09/11 0857 Sign by: Teo Wayne MD 93-Nya-478856:00 BILAT SCRN DIGITAL & CAD Radiology Report [...] radiologist regarding this report, please call our [id number] line @ Dictated on 09/18/11 1040 by Gee Weems MDrieleTranscribed on 09/20/11 09 by ITS IMPORTSign by Teo Wayne MD on 09/20/11901 Sign by: Teo Wayne MD 32-Lwi-67668:59 DEXA BONE DENSITY STUDY (HP) Radiology Report [...] regarding this re port, please call our [id number] line @ Dictated on 09/18/11 1002 by [address]ETER,Davidranscribed on 09/19/11 1416 by ITS IMPORTSign by Hema STREETER,Teo on 09/19/111416 Sign by: Hema STREETER,eTo 16-Zyp-260911:17 HgA1C , Office (70540) HgA1C , Office 5.9 % (Normal) Range: 4.6 - 7.1 60-Exa-921615:17 Blood Glucose , Office (96681) Blood Glucose , Office 77 (Normal) 04-Sep-20119:44 [...] >240 mg/dL High Risk :44 VIT D,25 32623 22.3 ng/mL (Abnormal) Range: 30.0-100.0 Comments: Vitamin D deficiency has been defined by the [place] and an Endocrine Society practice guideline as alevel of serum 25-OH vitamin D less than 20 ng/mL (1,2).The Endocrine Society went on to further define vitamin Dinsufficiency as a level between 21 and 29 ng/mL (2).1. IOM ([place]). 2011. Dietary reference intakes for calcium and D. [place]: The National AcademVanDyne SuperTur[employer] Press.2. Rachel MF, Yael MARLEY, Dunia HERRERA, et al. Evaluation, treatment, and prevention of vitamin D deficiency: an Endocrine Society clinical practice guideline. JCEM. 2010; 96(7): 1911-30.Performed at: - [facility] [id number] Director: Tona Emmanuel MD, Phone: [phone] :[phone] HgA1C , Office (61716) HgA1C , Office 6.6 % (Normal) Range: 4.6 - 7.1 :34 Blood Glucose , Office (65709) Blood Glucose , Office 116 (Normal) :50 [...] Range: 4.4-11.0 :50 COMP METABOLIC Comments: appt 44902 GAP 10 (Normal) Range: 5-15 CO2 26.0 [...] {uIU/mL} (Normal) Range: 0.358-3.74 :50 VIT D,25 06195 41.3 ng/mL (Normal) Range: 32.0-100.0 Comments: Effective June 18, 2011 Vitamin D, 25-Hydroxy reference intervals will be changing to 30-100. .Recent studies consider the lower li lalo of 32.0 ng/mL to be athreshold for optimal health.Pepito ANNE. J Nutr. 2004;135(2):317-22.Performed at: [facility] Mamina Shkola[address] [id number] Director: Tona Emmanuel MD, Phone: [phone] :[phone] VITAMIN B12 806 pg/mL (Normal) Range: 254-1320 Comments: There is a low frequency possibility that high titers ofintrinsic blocking antibodies may not be completely inactivated during the reaction pretreatment stepof this testing method. If test results are i n conflictwith the clinical diagnosis, patient should be testedfor the presence of intrinsic factor blocking antibodies. 0-Ohx-984207:09 Comp. Metabolic Panel (14) Comments: PATIENT WAS FASTINGPERFORMED BY: [employer] [id number] ALT (SGPT) 40 [iU]/L (Normal) Range: 0-40 [...] Glucose, Serum 136 mg/dL (Abnormal) Range: 65-99 5-Cuo-226099:09 Lipid Panel With LDL/HDL Comments: PATIENT WAS FASTINGPERFORMED BY: [facility] CenterEtpxtw9421 [facility] [id number] Ratio LDL Cholesterol Calc 74 mg/dL (Normal) Range: 0-99 LDL/HDL Ratio 1.5 {ratio_units} Range: 0.0-3.2 (Normal) VLDL Cholesterol Priscilla 25 mg/dL (Normal) Range: 5-40 HDL Cholesterol 49 mg/dL (Normal) Comments: According to ATP-III Guidelines, HDL-C >59 mg/dL is considered anegative risk factor for CHD. Triglycerides 125 mg/dL (Normal) Range: 0-149 Cholesterol, Total 148 mg/dL (Normal) Range: 100-199 5-Cxp-933656: TSH 0.192 {uIU/mL} Comments: PATIENT WAS FASTINGPERFORMED BY: [facility]6370 [facility] [id number] 09 (Abnormal) Range: 0.450-4.500 : Vitamin B12 417 pg/mL (Normal) Comments: PATIENT WAS FASTINGPERFORMED BY: [facility]6370 [facility] [id number] Range: 211-946 27-Fel-476747:22 UNILAT LT DIAG DIGITAL & CAD Radiology [...] 02/23/11 151 Sign by: Teo Wayne MD 33-Hfc-00283:58 CBCD,SMEAR DIFF Comments: appt 10/24/10 RED CELL [...] {uIU/mL} (Abnormal) Range: 0.358-3.74 :58 VIT D,25 68303 22.0 ng/mL (Abnormal) Comments: appt 10/24/10 Range: 32.0-100.0 Comments: Recent studies consider the lower limit of 32.0 ng/mL to tammy threshold for optimal health.Pepito ANNE. J Nutr. 2004;135(2):317-22.Performed at: - [place] [address]Lab Director: Tona Emmanuel MD, Phone: [phone] :58 VITAMIN B12 285 pg/mL (Normal) Range: 254-1320 Comments: There is a low frequency possibility that high titers ofintrinsic blocking antibodies may not be completely inactivated during the reaction pretreatment stepof this testing method. If test results are i n conflictwith the clinical diagnosis, patient should be testedfor the presence of intrinsic factor blocking antibodies. 5-Ceo-717384:42 Thin prep Pap Comments: Source.............Cervical;EndocervicalNo. of containers..01 CYTYC Thin Prep VialPATIENT NOT FASTINGPERFORMED BY: [facility] [address] [facility] TONJA [id number] Information: [id number] ([id number]) Note: PAPSMR (Normal) Comments: The Pap smear [...] for malignant neoplasm of the cervixMattsteve Montes Recycle Coordinator (ASCP) 23-Pjs-132482:26 BREAST UNILATERAL Radiology Report See Note (Normal) [...] on 08/28/10 1453 Sign by: ANTHONY PALOMARES 71-Pmc-898171:58 UNILAT LT DIAG DIGITAL & CAD Radiology [...] Category 3: Probably Benign Finding - Initial Spdfh-FrncudjhFpdimo-nu Suggested. A letter regarding these results will be sent tothepatient by the facility within 30 days. Approximately 10% of breast cancers are not detected by mammography. Anormal mammogram should not delay biopsy of a clinically suspiciousabnormality. Dictated on 08/24/10 1206 by ANTHONY PALOMARESTranscribed on 0 08/24/10 1351 by ITS IMPORTSign by ANTHONY PALOMARES on 08/24/10 1352 Sign by: ANTHONY PALOMARES 37-Kev-23269:43 BILAT SCRN DIGITAL & CAD Radiology Report [...] 08/18/10 1452 Sign by: ANTHONY PALOMARES MD 2-Thn-705643:14 HgA1C , Office (81716) HgA1C , Office 6.5 % (Normal) Range: 4.6 - 7.1 :14 Blood Glucose , Office (73435) Blood Glucose , Office 176 (Normal) :30 [...] CREAT 161.2 mg/dL (Normal) : VIT D,25 17441 27.7 ng/mL Range: 32.0-100.0 30 (Abnormal) Comments: Recent studies consider the lower limit of 32.0 ng/mL to tammy threshold for optimal health.Pepito ANNE. J Nutr. 2004;135(2):317- 22.Performed at: [address] [id number] 296Lab Director: Tona Emmanuel MD, Phone: [phone] : VITAMIN B12 449 pg/mL (Normal) Range: [...] {units} (Normal) Comments: PATIENT NOT FASTINGPERFORMED BY: [address] [id number] BY: [address] [id number] 0:44 Range: 0-19 Comments: Negative <20 Weak positive 20 - 39 Moderate positive 40 - 59 Strong positive >59 Comment: SPRCS (Normal) Comments: PATIENT NOT FASTINGPERFORMED BY: [address] [id number] BY: [address] [id number] 0:44 Comments: Effective April 25, 2009 order code 400669 CCP IgGAntibodies has been replaced due to an updated reagentversion 3.1. For this reason [facility] has provided youwith a new order code 593341 CCP Antibodies IgG/IgA. :44 Vitamin D Hydroxy Comments: PATIENT NOT FASTINGPERFORMED BY: [address] [id number] BY: [address] [id number] (97158) Vitamin D, 25-Hydroxy 30.9 ng/mL (Abnormal) Range: 32.0-100.0 Comments: Recent studies consider the lower limit of 32.0 ng/mL to be athreshold for optimal health.Pepito ANNE. J Nutr. 2004;135(2):317-22. 76-Qyk-360115:44 SED RATE ERYTHROCYTE Comments: PATIENT NOT FASTINGPERFORMED BY: [facility] Qiwths7095 Waller RoadDublin [place] [id number] BY: [address] [id number] (56211) Sedimentation Rate-Westergren 4 mm/h (Normal) Range: 0-30 07-Qun-275250:44 C-REACTIVE PROTEIN Comments: PATIENT NOT FASTINGPERFORMED BY: [facility] Amjlfu9997 Waller RoadDublin [place] [id number] BY: [address] [id number] (20872) C-Reactive Protein, Quant 2.5 mg/L (Normal) Range: 0.0-4.9 44-Yqw-177330:44 TSH (46737) Comments: PATIENT NOT FASTINGPERFORMED BY: [facility] Glgdkh[address] [facility] Waters HospitalDublin [place] [id number] BY: [address] [id number] TSH 2.050 {uIU/mL} (Normal) Range: 0.450-4.500 72-Wmh-762179:44 RHEUMATOID FACTOR-QUANT Comments: PATIENT NOT FASTINGPERFORMED BY: [facility] Nusbgm6334 Waller RoadDublin [place] [id number] BY: [address] [id number] (17104) RA Latex Turbid. 8.4 {IU/mL} (Normal) Range: 0.0-13.9 95-Dfc-485260:44 MELI (ANTINUCLEAR ANTIBODY) Comments: PATIENT NOT FASTINGPERFORMED BY: [facility] Ermylg3339 Waller RoadDublin [place] [id number] BY: [facility] [id number] (66965) MELI Direct Negative (Normal) 30-Blo-363408:44 CBC WITH MANUAL DIFF Comments: PATIENT NOT FASTINGPERFORMED BY: [facility] Lomyuc7181 Sridhar DavilaAtrium Health Kings Mountaincrystal [place] [id number] BY: [facility] [id number] Inf ormation: ADD [id number] AND DRAW FEE 99 2202 (38119) Immature Grans (Abs) 0.0 {x10E3/uL} (Normal) Range: [...] 3.80-5.10 WBC 6.8 {x10E3/uL} (Normal) Range: 4.0-10.5 80-Xcu-016811:44 METABOLIC PANEL, Comments: PATIENT NOT FASTINGPERFORMED BY: CB [facility] Swiory[address] [place] [id number] BY: BN [facility] Dxzewuhvso9564 [facility] [id number] COMPREHENSIVE (24450) ALT (SGPT) 21 [iU]/L (Normal) Range: 0-40 [...] (Abnormal) Range: 65-99 :33 HgA1C , Office (23141) HgA1C , Office 6.8 % (Normal) Range: 4.6 - 7.1 :33 Blood Glucose , Office (63209) Blood Glucose , Office 135 (Normal) :22 [...] CHOL 157 mg/dL (Normal) Comments: <200 mg/dL Zalnextxx913-933 mg/dL Borderline>240 mg/dL High Risk :22 LIVER ALB 3.5 g/dL (Normal) Range: 3.4-5.0 ALK P 97 U/L (Normal) Range: 50-136 ALT 21 U/L (Normal) Range: 12-78 AST 16 U/L (Normal) Range: 15-37 D BILI 0.12 mg/dL (Normal) Range: 0.00-0.30 T BILI 0.40 mg/dL (Normal) Range: 0.00-1.00 T PROT 6.5 g/dL (Normal) Range: 6.4-8.2 :22 TSH 1.54 {uIU/mL} Range: 0.358-3.74 (Normal) :22 VIT D,25 70458 36.8 ng/mL (Normal) Range: 32.0-100.0 Comments: Recent studies consider the lower limit of 32.0 ng/mL to tammy threshold for optimal health.Pepito ANNE. J Nutr. 2004;135(2):317-22.Performed at: - [facility] [address]Lab Director: Tona Emmanuel MD, Phone: [phone] :[phone] VITAMIN B12 264 pg/mL (Normal) Range: 254-1320 Comments: There is a low frequency possibility that high titers ofintrinsic blocking antibodies may not be completelyinactivated during the reaction pretreatment stepof this testing method. If test results are in conflictwith the clinical diagnosis, patient should be testedfor the presence of intrinsic factor blocking antibodies. : Amylase, Serum 92 U/L (Normal) Comments: PERFORMED BY: Mamina Shkola Gorjwm4742 [facility] [id number] 34 Range: 31-124 :34 CBC With Differential/Platelet Comments: PERFORMED BY: [employer]70 [facility] [id number] Baso (Absolute) 0.0 {x10E3/uL} (Normal) Range: 0.0-0.2 [...] 3.80-5.10 WBC 7.5 {x10E3/uL} (Normal) Range: 4.0-10.5 50-Sjz-638924:34 Comp. Metabolic Panel (14) Comments: PERFORMED BY: [facility]CoJFK [facility] CenterUmrbgm5668 [facility] [id number] ALT (SGPT) 18 [iU]/L (Normal) Range: 0-40 [...] Serum 57 U/L (Normal) Comments: PERFORMED BY: Mamina ShkolaJFK Medical CenterCjbspj5311 [facility] [id number] 13:34 Range: 0-59 03-Feb-20109:00 GALLBLADDER Radiology Report See Note (Normal) Comments: Exam Number: [id number] CLINICAL:Epigastric pain and bloating. ABDOMINAL ULTRASOUND TECHNIQUE:Transabdominal [...] hydronephrosis,etiology indeterminate. Reported By: KATHRYN MUNOZ M.D. 9-Keb-037606:19 CBC WITH MANUAL DIFF Comments: PATIENT NOT FASTINGPERFORMED BY: [facility]6370 [facility] [id number] Information: [id number] (35365) Baso (Absolute) 0.1 {x10E3/uL} (Normal) Range: 0.0-0.2 [...] 3.80-5.10 WBC 9.9 {x10E3/uL} (Normal) Range: 4.0-10.5 7-Dny-530995:19 METABOLIC PANEL, COMPREHENSIVE Comments: PATIENT NOT FASTINGPERFORMED BY: [facility]JFK [facility] CenterCjkfrc6694 [facility] [id number] (53134) ALT (SGPT) 19 [iU]/L (Normal) Range: 0-40 [...] Report See Note (Normal) Comments: Exam Number: [id number] CLINICAL:This is a 69-year-old female patient with [...] as discussed above. Reported By: TEO WAYNE 3-Zei-419994:12 HgA1C , Office (56057) HgA1C , Office 7.1 % (Normal) Range: 4.6 - 7.1 :12 Blood Glucose , Office (06777) Blood Glucose , Office 129 (Normal) :45 [...] CHOL 155 mg/dL (Normal) Comments: <200 mg/dL Jdfvjbhmh163-637 mg/dL Borderline>240 mg/dL High Risk :45 VIT D,25 92218 42.5 ng/mL (Normal) Range: 32.0-100.0 Comments: Recent studies consider the lower limit of 32.0 ng/mL to tammy threshold for optimal health.Pepito ANNE. J Nutr. 2004;135(2):317-22.Performed at: CB - [facility] [address] [id number] Director: Tona Emmanuel MD :53 LIPID HDL [...] CHOL 128 mg/dL (Normal) Comments: <200 mg/dL Lptvjjggw346-898 mg/dL Borderline>240 mg/dL High Risk :53 MICROALB:CRE UR MALB:CREAT 19.1 {mg/g_CRE} (Normal) MICROALBUMIN,UR 29.1 mg/L (Normal) UR CREAT 152.0 mg/dL (Normal) :53 TSH 0.93 {uIU/mL} (Normal) Range: 0.358-3.74 :53 VIT D,25 28544 22.7 ng/mL (Abnormal) Range: 32.0-100.0 Comments: Recent studies consider the lower limit of 32.0 ng/mL to tammy threshold for optimal health.Pepito ANNE. J Nutr. 2004;135(2):317-22.Performed At: [facility] [address] [id number] :53 VITAMIN B12 337 pg/mL (Normal) Range: 254-1320 :09 HgA1C , Office (49167) HgA1C , Office 7.1 % (Normal) Range: 4.6 - 7.1 :09 Blood Glucose , Office (63206) Blood Glucose , Office 108 (Normal) :33 KNEE,4 OR MORE VIEWS (MT) Radiology Report See Note (Normal) Comments: Exam Number: [id number] CLINICAL:Pain X-RAY EXAMINATION RIGHT KNEE TECHNIQUE:Three view(s) [...] Report See Note (Normal) Comments: Exam Number: [id number] CLINICAL:Pain X-RAY EXAMINATION: RIGHT TIBIA AND FIBULA [...] (MT) Radiology See Note Comments: Exam Number: [id number] CLINICAL:Pain X-RAY EXAMINATION: RIGHT FEMUR TECHNIQUE:Two views [...] Visualized femur. Reported By: RAYMOND ARRIAGA M.D. 0-Llv-703101:43 UNILAT DIAG DIGITAL & CAD Radiology Report See Note (Normal) Comments: Exam Number: [id number] MAMMOGRAM, UNILATERAL LEFT DIAGNOSTIC DIGITAL AND CAD HISTORYAbnormal mammogram, left breast. TECHNIQUEFull field digital images were obtained in left true lateral, rolledcranio caudal, and spot mediolateral oblique and craniocaudalprojections. CAD images were reviewed. The current study is compared to the examinations of March 12, 2006,and June 21, 2009. FINDINGSThere is a rggxueco-eq-wikqzy extent of fibroglandular parenchymapresent. There is no [...] wereal so examined with computer-aided detection software ([employer], [employer], [employer].). Reported By: ANTHONY PALOMARES M.D. 30-Pzz-477526:04 [facility] DIGITAL & CAD Radiology Report See Note (Normal) Comments: Exam Number: [id number] MAMMOGRAM, BILATERAL SCREENING DIGITAL AND CAD HISTORYRoutine [...] werealso examined with computer- aided detection software ([employer]Place.). Reported By: ANTHONY PALOMARES M.D. 91-Rex-977706:03 DEXA BONE DENSITY STUDY (HP) Radiology Report See Note (Normal) Comments: Exam Number: [id number] BONE DENSITOMETRY HISTORYOsteopenia. TECHNIQUE Bone densitometry of the lumbar spine and both hips is now beingperformed. The best criteria for evaluation of osteoporosis is theT-value, which represents the comparison of the patient's bone mass flako expected peak bone mass. For most patients, the mean T-value of B3aanyirc L4 is used to evaluate the lumbar spine. To evalua te the hip,the lower T-value of the femoral neck or total hip is used. FINDINGSIn this patient, the mean T-value of L1 through L4 is 0.3 which isnormal. Bone mineral density is measured at 18.3% greate r than ie2028.Digital lateral view for evaluation of vertebral deformity [...] within normallimits. Reported By: ANTHONY PALOMARES M.D. 85-Ajd-164026:09 BRAIN/HEAD W/WO CONTRAST Radiology Report See Note (Normal) Comments: Exam Number: [id number] CLINICAL:69 year old female with altered mental [...] mg/dL VLDL 32 mg/dL (Normal) Range: 5-40 22-Vay-33537:02 MICROALB:CRE UR MALB:CREAT 38.4 {mg/g_CRE} (Abnormal) MICROALBUMIN,UR 47.5 mg/L (Normal) UR CREAT 123.4 mg/dL (Normal) 07-Jun-2009 VIT D,25 05799 19.7 ng/mL Range: 32.0-100.0 9:02 (Abnormal) Comments: Recent studies consider the lower limit of 32.0 ng/mL to tammy threshold for optimal health.Pepito ANNE. J Nutr. 2004;135(2):317- 22.Performed At: [facility] [place], [place] [id number] 07-Jun-2009 VITAMIN B12 328 pg/mL (Normal) Range: 254-1320 9:02 11-Feb-2009 Homocyst(e)ine, Plasma 9.8 umol/L (Normal) Comments: PERFORMED BY: [employer]1447 [facility] [id number] 14:28 Range: 0.0-15.0 11-Feb-2009 Methylmalonic Acid, 336 nmol/L (Normal) Comments: PERFORMED BY: [employer] [address] [id number] 14:28 Serum Range: 73-376 Comments: The reference range for methylmalonic acid has been set at +3sd abovethe mean for healthy blood bank donors. In the clinical assessment ofpatients with megaloblastic anemias a cutoff of +3sd provides gr eaterspecificity in the diagnosis of the vitamin deficiency states,despite the sacrifice of some sensitivity. 11-Feb-2009 TSH 2.700 {uIU/mL} Comments: PERFORMED BY: [employer] [id number] 14:28 (Normal) Range: 0.450-4.500 11-Feb-2009 Vitamin B12 231 pg/mL (Normal) Comments: PERFORMED BY: [employer] [address] [id number] 14:28 Range: 211-911 2-Bmi-077049:09 HAND,MIN 3 VIEWS (MT) Radiology Report See Note (Normal) Comments: Exam Number: [id number] RIGHT WRIST CLINICAL DATAFell and injured the [...] osteoarthritis right hand. Reported By: FERNANDO TUCKER 2-Vbk-821476:09 WRIST,MIN 3 VIEWS (MT) Radiology Report See Note (Normal) Comments: Exam Number: [id number] RIGHT WRIST CLINICAL DATAFell and injured the [...] PANEL, COMPREHENSIVE Comments: PATIENT WAS FASTINGPERFORMED BY: [facility]CoJFK [facility] CenterSoqsiu6191 [facility] [id number] (15251) A/G Ratio 1.9 (Normal) Range: 1.1-2.5 Albumin, [...] 141 mmol/L (Normal) Range: 135-145 :42 TSH (54777) Comments: PATIENT WAS FASTINGPERFORMED BY: [facility]CoJFK Medical CenterBpodjc1819 [facility] [id number] TSH 4.980 {uIU/mL} (Abnormal) Range: 0.450-4.500 :42 MICROALBUMIN: CREATININE RATIO Comments: PATIENT WAS FASTINGPERFORMED BY: Mamina Shkola[address] [id number] (15005) AND (35691) Creatinine, Urine 130.9 mg/dL (Normal) Range: 15.0-278.0 Microalb/Creat Ratio 66.4 {ug/mg_creat} (Abnormal) Range: 0.0-30.0 Microalbumin, Urine 86.9 ug/mL (Abnormal) Range: 0.0-17.0 :42 LIPID PANEL (12402) Comments: PATIENT WAS FASTINGPERFORMED BY: Mamina ShkolaJason [place] 5235170 [facility] [id number] Cholesterol, Total 148 mg/dL (Normal) Range: 100-199 HDL Cholesterol 42 mg/dL (Normal) Comments: According to ATP-III Guidelines, HDL-C >59 mg/dL is considered anegative risk factor for CHD. LDL Cholesterol Calc 78 mg/dL (Normal) Range: 0-99 LDL/HDL Ratio 1.9 {ratio_units} (Normal) Range: 0.0-3.2 Triglycerides 141 mg/dL (Normal) Range: 0-149 VLDL Cholesterol Priscilla 28 mg/dL (Normal) Range: 5-40 :42 CBC WITH MANUAL DIFF (94303) Comments: PATIENT WAS FASTINGClinical Information: ADD DRAW FEE 871299 ADD J 16475 PERFORMED BY: Mamina Shkola[address] [id number] Baso (Absolute) 0.1 {x10E3/uL} (Normal) Range: 0.0-0.2 [...] B-12 (CYANOCOBALAMIN) Comments: PATIENT WAS FASTINGPERFORMED BY: [facility] Bcpigo5053 [facility] [id number] (67782) Vitamin B12 232 pg/mL (Normal) Range: 211-911 9-Sjc-458958:06 Blood Glucose , Office (32004) Blood Glucose , Office 155 (Normal) :27 [...] (Normal) Range: 0.34-4.82 :27 HgA1C , Office (21486) Comments: done>Wf. HgA1C , Office 6.2 % (Normal) Range: 4.6 - 7.1 :27 Blood Glucose , Office (42251) Comments: done>Wf. Blood Glucose , Office 152 [...] for patient's is the eGFRmultiplied by 1.212. [facility] Laboratory uses the abbreviated Modification [...] Disease W/O Kidney Disease>/= 90 Stage One Aymvze87 - 89 Stage Two Suspect Decrease d [...] mg/dL VLDL 50 mg/dL (Abnormal) Range: -40 7-Apl-635677:55 MICROALB:CRE UR MALB:CREAT 28.3 {mg/g_CRE} (Normal) MICROALBUMIN,UR 41.7 mg/L (Normal) UR CREAT 147.6 mg/dL (Normal) 8-Swr-047150:55 TSH 5.53 {uIU/mL} (Abnormal) Range: 0.34-4.82 43-Jqn-702689:25 TSH 0.16 {uIU/mL} (Abnormal) Range: 0.34-4.82 :31 HgA1C , Office (28007) Comments: done km HgA1C , Office 6.5 % (Normal) Range: 4.6 - 7.1 :31 Blood Glucose , Office (71352) Comments: done km Blood Glucose , Office 128 (Normal) 14-Gzt-818135:01 TSH 5.15 {uIU/mL} (Abnormal) Range: 0.34-4.82 :12 HgA1C , Office (76029) Comments: done km HgA1C , Office 6.2 % (Normal) Range: 4.6 - 7.1 :12 Blood Glucose , Office (46274) Comments: done km Blood Glucose , Office [...] Serum 117 ng/mL (Normal) Comments: PERFORMED BY: Diabeto70 [employer] [facility] [id number] Range: 10-291 :33 Iron and TIBC Comments: PERFORMED BY: Mamina ShkolaJFK Medical CenterTwaqyr3972Sien [facility] [id number] Iron Bind.Cap.(TIBC) 304 ug/dL (Normal) Range: 250-450 Iron Saturation 26 % (Normal) Range: 15-55 Iron, Serum 78 ug/dL (Normal) Range: 35-155 UIBC 226 ug/dL (Normal) Range: 150-375 : Vitamin B12 412 pg/mL (Normal) Comments: PERFORMED BY: [facility] Zpilfh5986 [address] [place] [id number] 33 Range: 211-911 :56 LIPID CHOL 222 [...] (Normal) Range: 6.4-8.2 :07 HgA1C , Office (82426) Comments: done HgA1C , Office 5.9 % (Normal) Range: 4.6 - 7.1 :07 Blood Glucose , Office (01603) Comments: done Blood Glucose , Office 132 [...] mg/dL (Abnormal) Range: 34-200 Comments: Performed At: [address] [id number] :08 IRON+TIBC IRON SATURATION 17.9 % (Normal) [...] mg/dL (Normal) Range: 34-200 Comments: Performed At: [address] [id number] :56 IRON+TIBC IRON SATURATION 17.1 % (Normal) [...] 1.50 SUGGEST MN :48 HgA1C , Office (27403) HgA1C , Office 6.4 % (Normal) Range: 4.6 - 7.1 :48 Blood Glucose , Office (61077) Blood Glucose , Office 113 (Normal) Plan [...] Indication: Double vision Double vision : Reviewed Final Canoe Inspector Letter Indication: Double vision Fatty liver [...] BMI 36.0-36.9,adult Right hip pain : Reviewed Final Canoe Inspector Letter Indication: Right hip pain Right [...] (monoclonal gammopathy of unknown significance) : Reviewed Final Canoe Inspector Letter- stable and discharged from onc [...] Fall down steps, initial encounter : Reviewed Final Canoe Inspector Letter Indication: Fall down steps, initial [...] infarction, unspecified Cerebral infarction, unspecified : Reviewed Final Canoe Inspector Letter Indication: Cerebral infarction, unspecified Upper [...] Planned Observations CBC, PLATELETS & AUT DIFF (09687)Indication: Other vitamin B12 deficiency anemia On: :17 Request TSH (04041)Indication: Abnormal TSH On: :38 Request T4, FREE (THYROXINE) (06403)Indication: Abnormal TSH On: :38 Request T3, FREE (TRIDOTHYRONINE) (74891)Indication: Abnormal TSH On: :38 Request ANTI-LIVER/KIDNEY MICROSOMAL ANTIBODY (47761)Indication: Elevated liver enzymes On: 70-Jin-643898:34 Request TSH (77441)Indication: Abnormal TSH On: 51-Tzd-730863:31 Request T4, FREE (THYROXINE) (01434)Indication: Abnormal TSH On: 19-Vcf-145468:31 Request T3, FREE (TRIDOTHYRONINE) (78813)Indication: Abnormal TSH On: 60-Njd-632402:31 Request BETA-2 MICROGLOBULIN (71387)Indication: Abnormal blood chemistry On: 20-Pln-152412:08 Request Urinalysis, Office (70752)Indication: Urinary frequency On: 90-Vaa-502494:38 Request CBC WITH MANUAL DIFF (23083)Indication: Therapeutic drug monitoring On: :57 Request Metabolic Panel, Basic (77386)Indication: Therapeutic drug monitoring On: :57 Request Methymalonic Acid, Serum (94204)Indication: Vitamin B 12 deficiency On: 32-Jqb-740831:51 Request CALCIFIDIOL (27011) VIT D 25Indication: Vitamin D deficiency, unspecified On: 45-Rog-941053:45 Request LIPID PANEL (21066)Indication: Other and unspecified hyperlipidemia On: 97-Hvu-249534:45 Request CALCIFIDIOL (16225) VIT D 25Indication: Uncontrolled type II diabetes mellitus On: :46 Request TSH (82364)Indication: Uncontrolled type II diabetes mellitus On: :46 Request URINALYSIS, W/ MICRO (33217)Indication: Uncontrolled type II diabetes mellitus On: :46 Request MICROALBUMIN: CREATININE RATIO (03747) AND (29189)Indication: Uncontrolled type II diabetes mellitus On: :46 Request METABOLIC PANEL, COMPREHENSIVE (32382)Indication: Uncontrolled type II diabetes mellitus On: :46 Request LIPID PANEL (41137)Indication: Uncontrolled type II diabetes mellitus On: :45 Request CBC W/AUTO DIFF WBC (10961)Indication: Uncontrolled type II diabetes mellitus On: :45 Request Rapid Flu (49493 x 2)Indication: Flu-like symptoms On: 69-Gya-714075:12 Request VITAMIN B-12 (CYANOCOBALAMIN) (07914)Indication: Vitamin B 12 deficiency On: 19-Jsg-975791:45 Request FECAL OCCULT- Tubes sent home (80382)Indication: Encounter for screening for malignant neoplasm of colon (Renamed from Special screening for malignant neoplasms, colon) On: 38-Wnx-129299:35 Request THYROXINE FREE (11201)Indication: Tachycardia On: 0-Alo-609363:04 Request FREE TRIDOTHYRONINE (T3) ([id number])Indication: Tachycardia On: 7-Pma-361705:04 Request TSH (THYROID STIMULATING HORMONE) (68984)Indication: Tachycardia On: 4-Vny-823785:04 Request serum immunofixation (10649)Indication: MGUS (monoclonal gammopathy of unknown significance) On: 68-Cxz-929834:14 Request urine immunofixation (13859)Indication: MGUS (monoclonal gammopathy of unknown significance) On: 39-Jti-837479:14 Request serum free light chains (28128)Indication: MGUS (monoclonal gammopathy of unknown significance) On: 25-Crz-114232:14 Request CBC W/AUTO DIFF WBC (71249)Indication: Diabetes mellitus type 2, controlled On: 23-Iyt-787375:13 Request MICROALBUMIN: CREATININE RATIO (35661) AND (51376)Indication: Diabetes mellitus type 2, controlled On: 58-Wiz-341029:13 Request METABOLIC PANEL, COMPREHENSIVE (58583)Indication: Diabetes mellitus type 2, controlled On: 74-Nhx-652585:13 Request LIPID PANEL (67159)Indication: Mixed hyperlipidemia On: 38-Omv-653768:13 Request VITAMIN B-12 (CYANOCOBALAMIN) (12796)Indication: Other vitamin B12 deficiency anemia On: :12 Request CBC (AUTO) (56590)Indication: Other vitamin B12 deficiency anemia On: :12 Request Vitamin D Hydroxy (28795)Indication: Vitamin D deficiency, unspecified On: 15-Bkf-299587:12 Request LIPID PANEL (11552)Indication: Mixed hyperlipidemia On: 3-Qhb-365018:42 Request METABOLIC PANEL, COMPREHENSIVE (51864)Indication: Benign essential hypertension (Renamed from Benign essential HTN) On: 3-Bne-597788:41 Request MICROALBUMIN: CREATININE RATIO (51472) AND (24846)Indication: Benign essential hypertension (Renamed from Benign essential HTN) On: 3-Osx-669512:41 Request SPEP (18743)Indication: Anemia, unspecified On: 47-Nbx-622853:17 Request UPEP (72496)Indication: Anemia, unspecified On: 23-Amc-378398:17 Request CBC W/AUTO DIFF WBC (18803)Indication: Iron (Fe) deficiency anemia On: 6-Hud-308218:38 Request TSH (08662)Indication: Acquired hypothyroidism On: 9-Tbd-629745:38 Request TSH (66543)Indication: Acquired hypothyroidism On: 37-Vmo-716329:34 Request SPEP (38173)Indication: Iron (Fe) deficiency anemia On: 10-Dne-009440:34 Request UPEP (28836)Indication: Iron (Fe) deficiency anemia On: 34-Pmt-362593:34 Request IRON BINDING CAPACITY (TIBC) (91253)Indication: Iron (Fe) deficiency anemia On: 30-Ker-864028:34 Request FERRITIN (88970)Indication: Iron (Fe) deficiency anemia On: :34 Request IRON (87918)Indication: Iron (Fe) deficiency anemia On: :34 Request CBC, PLATELETS & AUT DIFF (47529)Indication: Other vitamin B12 deficiency anemia On: :34 Request VITAMIN B-12 (CYANOCOBALAMIN) (87437)Indication: Other vitamin B12 deficiency anemia On: :33 Request Hemoglobin Glyclated (HGB A1C) (69530)Indication: Diabetes mellitus type 2, controlled On: :33 Request CBC, PLATELETS & AUT DIFF (36645)Indication: Other vitamin B12 deficiency anemia On: : Request VITAMIN B-12 (CYANOCOBALAMIN) (46783)Indication: Other vitamin B12 deficiency anemia On: :30 Request METABOLIC PANEL, COMPREHENSIVE (56760)Indication: Benign essential hypertension (Renamed from Benign essential HTN) On: : Request LIPID PANEL (12119)Indication: Other and unspecified hyperlipidemia On: :30 Request Vitamin D Hydroxy (61042)Indication: Vitamin D deficiency, unspecified On: : Request YCMYN-VZBMROZCCVF-CTGVF ([id number])Indication: Fatty liver On: :30 Request ANDRG-UUTRCEFOWRA-GSUVD (04612)Indication: Fatty liver On: :24 Request LIPID PANEL (06386)Indication: Mixed hyperlipidemia On: :23 Request TSH (68996)Indication: Acquired hypothyroidism On: :23 Request MICROALBUMIN: CREATININE RATIO (52256) AND (80707)Indication: Diabetes mellitus type 2, controlled On: :23 Request METABOLIC PANEL, COMPREHENSIVE (02939)Indication: Diabetes mellitus type 2, controlled On: :23 Request Vitamin D Hydroxy (34939)Indication: Vitamin D deficiency, unspecified On: :23 Request CBC, PLATELETS & AUT DIFF ([id number])Indication: Other vitamin B12 deficiency anemia On: :20 Request VITAMIN B-12 (CYANOCOBALAMIN) (40187)Indication: Other vitamin B12 deficiency anemia On: :20 Request Vitamin D Hydroxy (26263)Indication: Vitamin D deficiency, unspecified On: Request VITAMIN B-12 (CYANOCOBALAMIN) (02485)Indication: Other vitamin B12 deficiency anemia On: : Request CBC W/AUTO DIFF WBC (74248)Indication: Other vitamin B12 deficiency anemia On: Request TSH (01376)Indication: Acquired hypothyroidism On: : Request LIPID PANEL (11241)Indication: Mixed hyperlipidemia On: Request NDDCI-OMRYJREMKFJ-QQJKN (01137)Indication: Fatty liver On: Request PTT (Activated Partial Thromboplastin Time) (66351)Indication: Fatty liver On: : Request PT (Prothrobim Time) (61396)Indication: Fatty liver On: : Request Vitamin D Hydroxy (87376)Indication: Vitamin D deficiency, unspecified On: : Request VITAMIN B-12 (CYANOCOBALAMIN) (71851)Indication: Other vitamin B12 deficiency anemia On: : Request CBC W/AUTO DIFF WBC (49539)Indication: Diabetes mellitus type 2, controlled On: : Request METABOLIC PANEL, COMPREHENSIVE (23458)Indication: Diabetes mellitus type 2, controlled On: : Request LIPID PANEL (73835)Indication: Mixed hyperlipidemia On: : Request LIPID PANEL (03178)Indication: HYPERTENSION, NOS On: 40 Request CBC WITH MANUAL DIFF ([id number])Indication: HYPERTENSION, NOS On: Request METABOLIC PANEL, COMPREHENSIVE (35051)Indication: HYPERTENSION, NOS On: Request FECAL OCCULT- Tubes sent home (40151)Indication: Anemia, unspecified On: Request IRON (63338)Indication: Anemia, unspecified On: Request CBC WITH MANUAL DIFF ([id number])Indication: HYPERTENSION, NOS On: 7-Txt-422494:29 Request METABOLIC PANEL, COMPREHENSIVE (10108)Indication: Uncontrolled type II diabetes mellitus On: 6-Zqc-935193:28 Request TSH (THYROID STIMULATING HORMONE) (53363)Indication: Acquired hypothyroidism On: 94-Izu-105900:08 Request HgA1C , Office (32576)Indication: Diabetes mellitus type 2, controlled On: 74-Bpr-899360:55 Request VITAMIN B-12 (CYANOCOBALAMIN) (19866)Indication: Other vitamin B12 deficiency anemia On: :17 Request LIPID PANEL (38382)Indication: Other and unspecified hyperlipidemia On: 3-Ufx-842469:17 Request MICROALBUMIN: CREATININE RATIO (63926) AND (02397)Indication: Uncontrolled type II diabetes mellitus On: :17 Request METABOLIC PANEL, COMPREHENSIVE (76847)Indication: Uncontrolled type II diabetes mellitus On: 2-Czu-665584:17 Request HgA1C , Office (71640)Indication: Diabetes mellitus type 2, controlled On: 09-Tpy-970252:25 Request LIPID PANEL (74141)Indication: Other and unspecified hyperlipidemia On: 99-Opl-264534:11 Request METABOLIC PANEL, COMPREHENSIVE (34812)Indication: Diabetes mellitus type 2, controlled On: 90-Bli-389769:11 Request MICROALBUMIN: CREATININE RATIO (07523) AND (67805)Indication: Diabetes mellitus type 2, controlled On: 18-Bji-560963:11 Request VITAMIN B-12 (CYANOCOBALAMIN) (22196)Indication: Other vitamin B12 deficiency anemia On: 29-Rzd-146181:11 Request CBC, PLATELETS & AUT DIFF (06637)Indication: Other vitamin B12 deficiency anemia On: 81-Aua-140964:11 Request Vitamin D Hydroxy (61242)Indication: Vitamin D deficiency, unspecified On: 55-Nhi-992005:10 Request Blood Glucose , Office (16968)Indication: Diabetes mellitus type 2, controlled On: :29 Request LIPID PANEL (54973)Indication: Other and unspecified hyperlipidemia On: :26 Request Vitamin D Hydroxy (77311)Indication: Vitamin D deficiency, unspecified On: : Request VITAMIN B-12 (CYANOCOBALAMIN) (42671)Indication: Other vitamin B12 deficiency anemia On: :26 Request METABOLIC PANEL, COMPREHENSIVE (07981)Indication: Benign essential hypertension (Renamed from Benign essential HTN) On: :26 Request MICROALBUMIN: CREATININE RATIO (98072) AND (55349)Indication: Uncontrolled type II diabetes mellitus On: :26 Request Sputum Culture (99082)Indication: Chronic cough On: 8-Tvh-422461:58 Request RANI CULTURE-OTHER (59744)Indication: Sore throat On: 11-Fye-354474:06 Request Urinalysis, Office (38176)Indication: Abnormal urine On: 9-Ysc-026642:14 Request RANI CULTURE-OTHER (04661)Indication: Abnormal urine On: 0-Khg-520720:14 Request CCP ANTIBODY ([id number])Indication: History of poliomyelitis (Renamed from H/O acute poliomyelitis) On: :22 Request ANTI-Sm (ANTI [place] ANTIBODY) (75766) test code 242530Qxqndpwshn: History of poliomyelitis (Renamed from H/O acute poliomyelitis) On: 0-Krc-129583:22 Request RHEUMATOID FACTOR-QUANT (12556) test code 763882Zwnhvkuslz: History of poliomyelitis (Renamed from H/O acute poliomyelitis) On: 5-Pbo-350468:22 Request Vitamin D Hydroxy (69886)Indication: Vitamin D deficiency, unspecified On: 91-Vyy-166417:15 Request LIPID PANEL (72800)Indication: Other and unspecified hyperlipidemia On: 96-Cwg-226431:15 Request TSH (12614)Indication: Acquired hypothyroidism On: 56-Qkm-667109:15 Request METABOLIC PANEL, COMPREHENSIVE (96086)Indication: Diabetes mellitus type 2, controlled On: 93-Yrd-180499:14 Request VITAMIN B-12 (CYANOCOBALAMIN) (33609)Indication: Other vitamin B12 deficiency anemia On: 31-Uxh-551716:08 Request MICROALBUMIN: CREATININE RATIO (75910) AND (29784)Indication: Uncontrolled type II diabetes mellitus On: 49-Jfx-944774:30 Request METABOLIC PANEL, COMPREHENSIVE (72393)Indication: Uncontrolled type II diabetes mellitus On: 10-Sdd-669801:30 Request TSH (02754)Indication: Acquired hypothyroidism On: 33-Qfq-642785:30 Request Vitamin D Hydroxy (46219)Indication: Vitamin D deficiency, unspecified On: 79-Aoj-373228:30 Request LIPID PANEL (26390)Indication: Other and unspecified hyperlipidemia On: 32-Ypv-683101:29 Request LIPID PANEL (27259)Indication: Other and unspecified hyperlipidemia On: 21-Ulv-898841:51 Request TSH (54364)Indication: Acquired hypothyroidism On: 75-Igs-584898:50 Request Vitamin D Hydroxy (18167)Indication: Vitamin D deficiency, unspecified On: 61-Pso-443280:50 Request CBC WITH MANUAL DIFF (92376)Indication: Diabetes mellitus type 2, controlled On: :50 Request METABOLIC PANEL, COMPREHENSIVE (10287)Indication: Diabetes mellitus type 2, controlled On: 82-Gkf-150325:50 Request Vitamin D Hydroxy (93259)Indication: Vitamin D deficiency, unspecified On: :44 Request VITAMIN B-12 (CYANOCOBALAMIN) (65947)Indication: Other vitamin B12 deficiency anemia On: :44 Request CBC WITH MANUAL DIFF (77414)Indication: Anemia, unspecified On: :43 Request METABOLIC PANEL, COMPREHENSIVE (17738)Indication: Diabetes mellitus type 2, controlled On: 12-Uce-002743:43 Request MICROALBUMIN: CREATININE RATIO (26334) AND (48331)Indication: Diabetes mellitus type 2, controlled On: :43 Request LIPID PANEL (27493)Indication: Other and unspecified hyperlipidemia On: :43 Request TSH (08608)Indication: Acquired hypothyroidism On: :43 Request Vitamin D Hydroxy (83064)Indication: Vitamin D deficiency, unspecified On: :03 Request LIPID PANEL (48816)Indication: Other and unspecified hyperlipidemia On: 8-Eai-767575:03 Request CBC WITH MANUAL DIFF ([id number])Indication: Diabetes mellitus type 2, controlled On: 6-Ehw-357591:02 Request METABOLIC PANEL, COMPREHENSIVE (35038)Indication: Diabetes mellitus type 2, controlled On: 1-Ofz-015053:02 Request VITAMIN B-12 (CYANOCOBALAMIN) (17735)Indication: Other vitamin B12 deficiency anemia On: 6-Ymy-921887:36 Request Comments: Lot #[id number]-left deltoidDose-1 mlgiven by: Dani Rivera LPN LIPID PANEL (39442)Indication: Other and unspecified hyperlipidemia On: :28 Request METABOLIC PANEL, COMPREHENSIVE (77614)Indication: Uncontrolled type II diabetes mellitus On: : Request TSH (65569)Indication: Acquired hypothyroidism On: :28 Request Vitamin D Hydroxy (62010)Indication: Vitamin D deficiency, unspecified On: : Request CBC WITH MANUAL DIFF (53202)Indication: Anemia, unspecified On: : Request CBC WITH MANUAL DIFF (80567)Indication: Other vitamin B12 deficiency anemia On: :20 Request Blood Glucose , Office (40484)Indication: Uncontrolled type II diabetes mellitus On: :15 Request Comments: 149 HgA1C , Office (99632)Indication: Uncontrolled type II diabetes mellitus On: :15 Request METABOLIC PANEL, COMPREHENSIVE (43074)Indication: Other and unspecified hyperlipidemia On: :22 Request LIPID PANEL (65242)Indication: Other and unspecified hyperlipidemia On: :22 Request TSH (90830)Indication: Acquired hypothyroidism On: :22 Request HEMOGLOBIN GLYCLATED (HGB A1C) (01314)Indication: Abnormal glucose tolerance test On: 07-Ebt-233506:20 Request VITAMIN B-12 (CYANOCOBALAMIN) (59331)Indication: Other vitamin B12 deficiency anemia On: 45-Mdc-845929:17 Request Vitamin D Hydroxy (23873)Indication: Vitamin D deficiency, unspecified On: 3-Ltb-825269:21 Request VITAMIN B-12 (CYANOCOBALAMIN) (99880)Indication: Other vitamin B12 deficiency anemia On: 6-Zao-521741:20 Request LIPID PANEL (79055)Indication: Abnormal glucose tolerance test On: :20 Request CBC WITH MANUAL DIFF (54784)Indication: Abnormal glucose tolerance test On: :20 Request METABOLIC PANEL, COMPREHENSIVE (59663)Indication: Abnormal glucose tolerance test On: :20 Request METABOLIC PANEL, COMPREHENSIVE (50852)Indication: Abnormal glucose tolerance test On: :59 Request CBC WITH MANUAL DIFF (60431)Indication: Abnormal glucose tolerance test On: :59 Request Vitamin D Hydroxy (99412)Indication: Vitamin D deficiency, unspecified On: :59 Request VITAMIN B-12 (CYANOCOBALAMIN) (68585)Indication: Other vitamin B12 deficiency anemia On: :59 Request TSH (01402)Indication: Acquired hypothyroidism On: :58 Request LIPID PANEL (60810)Indication: Other and unspecified hyperlipidemia On: :58 Request CCP ANTIBODY (96884)Indication: Pain in unspecified joint On: 61-Sly-731510:22 Request VITAMIN B-12 (CYANOCOBALAMIN) (67977)Indication: Other vitamin B12 deficiency anemia On: 8-Cpy-758283:10 Request Vitamin D Hydroxy (98997)Indication: Vitamin D deficiency, unspecified On: 8-Tut-854441:10 Request MICROALBUMIN: CREATININE RATIO (85057) AND (45841)Indication: Uncontrolled type II diabetes mellitus On: 8-Lzn-330299:10 Request CBC WITH MANUAL DIFF (13533)Indication: Uncontrolled type II diabetes mellitus On: 3-Nhc-542708:10 Request METABOLIC PANEL, COMPREHENSIVE (09628)Indication: Benign essential hypertension (Renamed from Benign essential HTN) On: 2-Oxw-068500:09 Request LIPID PANEL (67812)Indication: Other and unspecified hyperlipidemia On: 7-Fuj-069199:09 Request TSH (97758)Indication: Acquired hypothyroidism On: 1-Vbq-669764:39 Request VITAMIN B-12 (CYANOCOBALAMIN) (43720)Indication: Other vitamin B12 deficiency anemia On: 8-Nvb-799726:37 Request HEPATIC FUNCTION PANEL (04701)Indication: Other and unspecified hyperlipidemia On: 5-Sej-151862:36 Request LIPID PANEL (73736)Indication: Other and unspecified hyperlipidemia On: 8-Btd-591108:36 Request Vitamin D Hydroxy (10784)Indication: Vitamin D deficiency, unspecified On: 1-Lde-676358:36 Request METABOLIC PANEL, COMPREHENSIVE (16090)Indication: Benign essential hypertension (Renamed from Benign essential HTN) On: 2-Dxc-271149:35 Request LIPID PANEL (90656)Indication: Other and unspecified hyperlipidemia On: 5-Zpb-587304:35 Request Vitamin D Hydroxy (16826)Indication: Vitamin D deficiency, unspecified On: 1-Sam-044036:30 Request Vitamin D Hydroxy (05474)Indication: Vitamin D deficiency, unspecified On: 13-Itq-191600:10 Request MICROALBUMIN: CREATININE RATIO (74604) AND (49484)Indication: Uncontrolled type II diabetes mellitus On: 22-Yzx-957538:07 Request LIPID PANEL (38316)Indication: Other and unspecified hyperlipidemia On: 85-Yoo-251719:07 Request TSH (71077)Indication: Acquired hypothyroidism On: 92-Xpi-817243:07 Request VITAMIN B-12 (CYANOCOBALAMIN) (70991)Indication: Other vitamin B12 deficiency anemia On: 02-Dnk-183011:42 Request Vitamin D Hydroxy (48828)Indication: Vitamin D deficiency, unspecified On: 25-Hch-956223:50 Request IRON BINDING CAPACITY (TIBC) (19142)Indication: Iron (Fe) deficiency anemia On: 13-Vez-574124:50 Request LDH (LD) (LACTATE DEHYDROGENASE) (51810)Indication: Iron (Fe) deficiency anemia On: 41-Phy-670144:50 Request FERRITIN (55488)Indication: Iron (Fe) deficiency anemia On: 72-Mjp-334354:50 Request IRON (18501)Indication: Iron (Fe) deficiency anemia On: 21-Gxv-075383:50 Request CBC WITH MANUAL DIFF (89451)Indication: Iron (Fe) deficiency anemia On: 38-Rpo-771573:50 Request HEPATIC FUNCTION PANEL (60921)Indication: Other and unspecified hyperlipidemia On: 65-Ipc-819674:44 Request LIPID PANEL (14162)Indication: Other and unspecified hyperlipidemia On: 90-Vhv-998284:44 Request CBC WITH MANUAL DIFF (36938)Indication: Other vitamin B12 deficiency anemia On: 8-Cxt-809239:54 Request MICROALBUMIN: CREATININE RATIO (08550) AND (99947)Indication: Glucose intolerance (no malabsorption) On: 5-Bdn-723848:54 Request METABOLIC PANEL, COMPREHENSIVE (96575)Indication: HYPERTENSION, NOS On: :54 Request LIPID PANEL (55475)Indication: Other and unspecified hyperlipidemia On: 0-Ktj-019557:53 Request VITAMIN B-12 (CYANOCOBALAMIN) (29912)Indication: Other vitamin B12 deficiency anemia On: :53 Request IRON (54645)Indication: Iron (Fe) deficiency anemia On: :53 Request Vitamin D Hydroxy (98790)Indication: Osteopenia On: :49 Request Methylmalonic acid, serum 47130Ahsmdavzwi: Other vitamin B12 deficiency anemia On: :03 Request VITAMIN B-12 (CYANOCOBALAMIN) (50401)Indication: Other vitamin B12 deficiency anemia On: :03 Request TSH (65862)Indication: Acquired hypothyroidism On: :03 Request HgA1C , Office (81199)Indication: Abnormal glucose tolerance test On: 7-Sci-701389:06 Request TSH (55332)Indication: Acquired hypothyroidism On: 32-Erg-07984:35 Request LIPID PANEL (63137)Indication: Other and unspecified hyperlipidemia On: :35 Request METABOLIC PANEL, COMPREHENSIVE (44754)Indication: SOB (shortness of breath) on exertion On: :34 Request CBC WITH MANUAL DIFF (47928)Indication: SOB (shortness of breath) on exertion On: :34 Request TSH (90138)Indication: Acquired hypothyroidism On: 7-Ita-459640:46 Request Comments: do in 6 weeks TSH (64227)Indication: Acquired hypothyroidism On: 77-Tny-743085:15 Request Comments: DO IN 6 WEEKS WITH MEDICATION CHANGE TSH (98524)Indication: Other malaise and fatigue On: :49 Request Iron Binding Capacity (TIBC) (81283)Indication: Iron (Fe) deficiency anemia On: :43 Request Ferritin (37806)Indication: Iron (Fe) deficiency anemia On: :43 Request Iron (65436)Indication: Iron (Fe) deficiency anemia On: :43 Request HEPATIC FUNCTION PANEL (87541)Indication: Mixed hyperlipidemia On: :42 Request LIPID PANEL (70781)Indication: Mixed hyperlipidemia On: :42 Request Comments: do in 3 months HEPATIC FUNCTION PANEL (12273)Indication: Mixed hyperlipidemia On: :11 Request LIPID PANEL (95959)Indication: Mixed hyperlipidemia On: 7-Zto-153882:11 Request Comments: do in 3 mo TSH (67500)Indication: Acquired hypothyroidism On: :23 Request VITAMIN B-12 (CYANOCOBALAMIN) (64255)Indication: Anemia, unspecified On: :23 Request LDH (LD) (LACTATE DEHYDROGENASE) (50080)Indication: Anemia, unspecified On: :23 Request RETICULOCYTE COUNT MANUL (93785)Indication: Anemia, unspecified On: :23 Request IRON BINDING CAPACITY (TIBC) (91190)Indication: Anemia, unspecified On: :23 Request IRON (20571)Indication: Anemia, unspecified On: :23 Request FOLIC ACID SERUM (28491)Indication: Anemia, unspecified On: :23 Request HAPTOGLOBIN (61221)Indication: Anemia, unspecified On: :23 Request FERRITIN (03138)Indication: Anemia, unspecified On: :23 Request CBC, PLATELETS & AUT DIFF (03217)Indication: Anemia, unspecified On: :23 Request HgA1C , Office (72950)Indication: Abnormal glucose tolerance test On: :03 Request CBC with manual diff (13407)Indication: Anemia, unspecified On: 19-Ejq-668300:49 Request HgA1C , Office (18104)Indication: Abnormal glucose tolerance test On: 65-Jqd-231458:30 Request Comments: controlled URINALYSIS W/O MICRO (95737)Indication: HYPERTENSION, NOS On: 24-Mlz-107140:03 Request TSH ([id number])Indication: Acquired hypothyroidism On: :03 Request MICROALBUMIN URINE QUANT (87572)Indication: HYPERTENSION, NOS On: :03 Request METABOLIC PANEL, COMPREHENSIVE (13388)Indication: HYPERTENSION, NOS On: 97-Kib-416085:03 Request LIPID PANEL (28911)Indication: HYPERTENSION, NOS On: :03 Request CBC WITH MANUAL DIFF ([id number])Indication: HYPERTENSION, NOS On: :03 Request Planned Encounters Medical; 2 Week FU - On: 31-Jul-2018 12:00 [facility] Melanie KEBEDE, Doris Melanie DO, Doris Melanie DO, Doris Planned Procedures Radiology - Lumbar SpineBy: Melanie On: 24-Jun-2018 Intent Doris KEBEDE Melanie DO, Doris Melanie DO, Doris Aerosol Treatment (71390)By: On: 14-Apr-2018 Intent Thelma Sofia Comments: Lungs clear after albuterol aerosol treatment Ultrasound - LiverBy: Melanie KEBEDE, On: 21-Nov-2017 Intent Doris Naavrro DO, Doris Navarro DO, Doris B 12 Injection, 1000 mcg ([id number])By: On: 21-Nov-2017 Intent Doris Navarro DO Melanie DO, Comments: Vitamin b12 1000mcg injection lot:[id number]:04/2019L DELT IMpt tolerated well MSMITH,DIRECTOR DIETETICS DEPARTMENT Doris Navarro DO, Doris PHYSICAL THERAPY (95683)By: [place] On: 28-Oct-2017 Intent Thelma Radiology - Hip - LeftBy: [place], On: 28-Oct-2017 Intent Thelma Aerosol Treatment (22432)By: Melanie On: 07-Aug-2017 Intent Doris KEBEDE Melanie DO, Doris Comments: more a/e less nois e Doris Navarro DO Spirometry (11001)By: Melanie KEBEDE, On: 07-Aug-2017 Intent Doris Navarro DODoris Melanie Comments: really poor techniq DO, Doris Radiology - Chest- PA and LatBy: On: 07-Aug-2017 Intent Tali Navarro DOhleen Melanie DO, Doris Melanie DO, Doris IV Needle placement ([id number])By: On: 02-Aug-2017 Intent Melanie DO, Doris Melanie DO, Doris Melanie DO, Doris INFUSION, NORMAL SALINE SOLUTION , On: 02-Aug-2017 Intent 1000 CC (Special Coverage Comments: lot:[id number]:02-26-2019rte:right anticubdose:1000ml given by:david matthewsER, DIRECTOR DIETETICS DEPARTMENT Instructions Apply. See [facility]: 2048) ([id number])By: Doris Navarro DO Melanie DO, Doris Melanie DO, Doris INFUSION, NORMAL SALINE SOLUTION , On: 01-Aug-2017 Intent 1000 CC (Special Coverage Comments: lot:[id number]:02-26-2019rte:IV left anticubdose:1000ml NS given by:david GORMAN signedER, DIRECTOR DIETETICS DEPARTMENT Instructions Apply. See MCM: 2048) ([id number])By: Marcia Brtiton Aerosol Treatment (89206)By: Melanie On: 01-Aug-2017 Intent DO, Doris Melanie DO, Doris Comments: more a/e less junky sounding Doris Navarro DO PNEUM VAC ADLT/IMUMNOSPR, SBC/INTRM On: 25-Apr-2017 Intent (15476)By: Doris Navarro DO Comments: 0.5cc given sq lt arm lot [id number] exp 09/05/18 Doris Navarro DO Melanie DODoris INTENSIVE BEHAVIORAL THERAPY TO On: 25-Apr-2017 Intent REDUCE CARDIOVASCULAR DISEASE RISK, INDIVIDUAL, CTQJ-IK-DPSH, ANNUAL, 15 MINUTES (G0446)By: Doris Navarro DO Melanie DO, Doris Melanie DODoris DRJN-GQ-AEGQ BEHAVIORAL COUNSELING On: 25-Apr-2017 Intent FOR OBESITY, 15 MINUTES (G0447)By: Doris Navarro DO DODoris DODoris B 12 Injection, 1000 mcg ([id number])By: On: 25-Apr-2017 Intent Doris Navarro DO DO, Comments: 1 ml given lt arm lot [id number] exp 03/15 Doris Jay DO ELECTROCARDIOGRAM, COMPLETE (ECG) On: 25-Apr-2017 Intent (00262)By: Melanie DOTaliDoris Comments: nsr no acute chg Melanie DO, Doris Melanie DO, Doris B 12 Injection, 1000 mcg (J3420)By: On: 14-Mar-2017 Intent Melanie DO, Doris Melanie DO, Comments: lot [id number] 09/16left [id number] mcgas, DIRECTOR DIETETICS DEPARTMENT Doris Melanie DO, Doris B 12 Injection, 1000 mcg ([id number])By: On: 31-Dec-2016 Intent Melanie DO, Doris Melanie DO, Comments: [id number], DIRECTOR DIETETICS DEPARTMENT Doris Melanie DO, Doris B 12 Injection, 1000 mcg ([id number])By: On: 20-Sep-2016 Intent Melanie DO, Doris Melanie DO, Comments: lot:[id number]: 11/13Dose: 1,000 mcgSite: R dltdLocation; IMby:, DIRECTOR DIETETICS DEPARTMENT Doris Melanie DO, Doris Solu- Medrol Injection, 125mg On: 20-Aug-2016 Intent (J2930)By: Melanie DO Doris Comments: lot: [id number]: 01/14site/route: LGM/IMamt:2mLVIS signed when applicableChelsea, AIRPORT OPERATIONS OFFICER Melanie DO, Doris Melanie DO, Doris Aerosol Treatment (27804)By: Melanie On: 20-Aug-2016 Intent DO, Doris Melanie DO, Doris Comments: albulterol 0.83%relistedned nad more a/e less noise Melanie DO, Doris B 12 Injection, 1000 mcg ([id number])By: On: 20-Aug-2016 Intent Melanie DO, Doris Melanie DO, Comments: lot: [id number]: ite/route: L del/IMamt: 1mLVIS signed when applicableChelsea, AIRPORT OPERATIONS OFFICER Doris Melanie DO, Doris Spirometry ([id number])By: Melanie DO, On: 16-Aug-2016 Intent Doris Melanie DO, Doris Melanie Comments: ok stable - DO, Doris Aerosol Treatment (16505)By: Melanie On: 16-Aug-2016 Intent Doris KEBEDE DO, Kathleen Comments: albulterol 0.83%more a.e stil some niose in RUL -- junky and easy to cough Doris Navarro DO Solu- Medrol Injection, 125mg On: 16-Aug-2016 Intent ([id number])By: Doris Navarro DO Comments: lot [id number] mgright gm, IMas DIRECTOR DIETETICS DEPARTMENT Melanie DO, Doris Melanie DO, Doris B 12 Injection, 1000 mcg (J3420)By: On: 20-Jul-2016 Intent Doris Navarro DO, DO, Comments: B12lot:6202exp:ite:rt deltroute:IMdose:1mlD.HAY Valentin Melanie DO, Doris Solu- Medrol Injection, 125mg On: 20-Jul-2016 Intent ([id number])By: Doris Navarro DO Comments: lot: [id number]: 01/14site/route: RGM/IMamt: 2mLVIS signed when applicableChelsea, AIRPORT OPERATIONS OFFICER Melanie DO, Doris Melanie DOJdDoris Aerosol Treatment ([id number])By: Melanie On: 20-Jul-2016 Intent Doris KEBEDE DO, Kathleen Comments: less wheeze good a/e- less irritability with breathing Doris Navarro DO Radiology - Chest- PA and LatBy: On: 20-Jul-2016 Intent Doris Navarro DO Melanie DO, Doris MelanieDoris driscoll DO Spirometry ([id number])By: Melanie KEBEDE, On: 20-Jul-2016 Intent Doris Jay DO Comments: mild restriction =- poor curve and technique Doris KEBEDE ELECTROCARDIOGRAM, COMPLETE (ECG) On: 20-Jul-2016 Intent ([id number])By: Doris Navarro DO Comments: sinus braden no acute chg Melanie DODoris Melanie DO, Doris B 12 Injection, 1000 mcg (J3420)By: On: 29-May-2016 Intent Melanie DO, Doris Melanie DO, Comments: Lot:[id number]:11/13Dose:1mlRoute:IMSite:r armGiven By:SAADIA signed Doris Melanie DO, Doris Flu Vaccine (Quadrivalent) [id number]: On: 29-May-2016 Intent Melanie DO, Doris Melanie DO, Comments: Lot:[id number]:01/25/17Dose:0.5mLRoute:IMSite:L DltdGiven By:SAADIA signed Doris Melanie DO, Doris B 12 Injection, 1000 mcg (J3420)By: On: 21-May-2016 Intent Melanie DO, Doris Melanie DO, Doris Melanie DO, Doris B 12 Injection, 1000 mcg (J3420)By: On: 18-May-2016 Intent Melanie DO, Doris Melanie DO, Comments: B12lot:6185exp:ite:rt deltroute:IMdose:1mlD.HAY Valentin Doris Melanie DO, Doris B 12 Injection, 1000 mcg (J3420)By: On: 11-May-2016 Intent Melanie DO, Doris Melanie DO, Comments: lot [id number] mcgle CARYN nix Doris Melanie DO, Doris B 12 Injection, [...] 6185exp: ite/route: R del/IMamt: 1mLVIS signed when applicableMaritza SIMI Doris Melanie DO, Doris B 12 Injection, 1000 mcg (J3420)By: On: 13-Apr-2016 Intent Mckinley Valentin Comments: B12lot:6185exp:ite:lt deltroute:IMdose:1mlD.HAY Valentin INTENSIVE BEHAVIORAL THERAPY TO On: 09-Apr-2016 Intent REDUCE CARDIOVASCULAR DISEASE RISK, INDIVIDUAL, CJSK-TA-PVHI, ANNUAL, 15 MINUTES (G0446)By: Melanie DO, Doris Melanie DO, Doris Melanie DO, Doris QIZS-FN-BTYM BEHAVIORAL COUNSELING On: 09-Apr-2016 Intent FOR OBESITY, 15 MINUTES (G0447)By: Melanie DO, Doris Melanie DO, Doris Melanie DO, Doris MAMMOGRAM, SCREENING, BOTH BREAST On: 09-Apr-2016 Intent ([id number])By: Melanie DO, Doris Melanie DO, Doris Melanie DO, Doris DEXA SCAN AXIAL SKELETON ([id number])By: On: 09-Apr-2016 Intent Melanie DO, Doris Melanie [...] DO, Doris Melanie DO, Comments: Lot:[id number]:12/13Dose:1mlRoute:IMSite:r armGiven By:MarisolNextGreatPlace signed Doris Melanie DO, Doris B 12 Injection, 1000 mcg (J3420)By: On: 07-Feb-2016 Intent Melanie DO, Doris Melanie DO, Comments: Lot:[id number]:10/2017Dose:1mlRoute:IMSite:l armGiven By:Flatout TechnologiesJOE signed Doris Melanie DO, Doris B 12 Injection, 1000 mcg (J3420)By: On: 26-Jan-2016 Intent Melanie DO, Doris Melanie DO, Comments: B12lot:5200exp:05/14site:lt deltroute:IMdose:1mlD.HAY Valentin Doris Melanie DO, Doris Echo CompleteBy: Fast DO, Maggie A On: 28-Dec-2015 Intent B 12 Injection, 1000 mcg (J3420)By: On: 05-Dec-2015 Intent Fast DO, Maggie A Comments: Lot:[id number]:12/13Dose:1mlRoute:IMSite:r arm Given By:JKMVIS signed Echo CompleteBy: Alexy DO Maggie A On: 05-Dec-2015 Intent Radiology - Chest- PA and LatBy: On: 07-Sep-2015 Intent Fast DO, Maggie A B 12 Injection, 1000 mcg (J3420)By: On: 19-Aug-2015 Intent Fast DO Maggie A Comments: Lot:[id number]:04/14Dose:1mlRoute:IMSite:l armGiven By:SAADIA signed Aerosol Treatment ([id number])By: Alexy On: 03-Aug-2015 Intent DO, Maggie A B 12 Injection, 1000 mcg (J3420)By: On: 17-May-2015 Intent Alexy DO Maggie A Comments: Lot:[id number]:11/12Dose:1mlRoute:IMSite:l armGiven By:SAADIA signed Flu Vaccine (Quadrivalent) [id number]: On: 17-May-2015 Intent Alexy DO Maggie A Comments: lot [id number]: 01/26/2016site/route L sol, IMamt 0.5mlVIS and ABN signed when applicableChelsea, CMAFM4 ADMINISTRATION OF INFLUENZA VIRUS On: 17-May-2015 Intent VACCINE (G0008)By: Camelia Tracey DOa A B 12 Injection, 1000 mcg (J3420)By: On: 15-Feb-2015 Intent Kanika Georges Comments: Lot:[id number]:11.16Route:IMSite:R deltoidDose: 1 mLgiven by: Kanika Georges CMA DANIEL (Ankle Brachial Index) On: 08-Feb-2015 Intent ([id number])By: Camelia Tracey DOa A Radiology - Lumbar SpineBy: Alexy DO, On: 08-Feb-2015 Intent Maggie A Ultrasound - ThyroidBy: Alexy DO, On: 09-Nov-2014 Intent Maggie A B 12 Injection, 1000 mcg (J3420)By: On: 09-Nov-2014 Intent Alexy KEBEDE Maggie A Comments: lot [id number] mcgleft dltdIMas, DIRECTOR DIETETICS DEPARTMENT Radiology - Chest- PA and LatBy: On: 13-Sep-2014 Intent Alexy DO Maggie A Comments: call stat Pulse Oximetry (07214)By: Alexy KEBEDE, On: 13-Sep-2014 Intent Maggie A Comments: 97% Inhaler Demonstration (82329)By: On: 07-Sep-2014 Intent Evert LOVE, Kimberley Poe Radiology - Chest- PA and LatBy: On: 14-Jul-2014 Intent Maggie Tracey DO Comments: call rsults Spirometry ([id number])By: Alexy KEBEDE, On: 14-Jul-2014 Intent Maggie Armstrong Comments: good effort and curve mild rest /obst Prevnar 13 (18511)By: Alexy KEBEDE, On: 30-Jun-2014 Intent Maggie Armstrong Comments: lot [id number] 09/2015location L armroute imgiven by - msmithVIS and/or ABN signed MAMMOGRAM, SCREENING, BOTH BREAST On: 14-Apr-2014 Intent ([id number])By: Maggie Tracey DO B 12 Injection, 1000 mcg (J3420)By: On: 14-Apr-2014 Intent Maggie Tracey DO Comments: Lot #:[id number] date:mount given:1mlRoute: IMSite given: left deltoidGiven by: HAY Zavala Cartoid DopplerBy: Maggie Tracey DO On: 14-Apr-2014 Intent Eprescribed prescriptions (G8553)By: On: 07-Oct-2013 Intent Maggie Tracey DO DXA, BONE DENSITY, AXIAL SKELETON On: 20-Jul-2013 Intent (74091)By: Maggie Tracey DO Comments: aug Pelvic and Breast, Medicare On: 20-Jul-2013 Intent (G0101)By: Maggie Tracey DO Cartoid DopplerBy: Maggie Tracey DO On: 07-Jul-2013 Intent Eprescribed prescriptions (G8553)By: On: 07-Jul-2013 Intent Raiza Ortiz FLU VAC, SPLIT, >3 YEARS, INTRAMUSC On: 04-May-2013 Intent (40235)By: Maritza Cantor Comments: lot [id number] 2014site/route L sol, IMamt 0.5mlVIS and ABN signed when applicableChelsea, AIRPORT OPERATIONS OFFICER ADMINISTRATION OF INFLUENZA VIRUS On: 04-May-2013 Intent VACCINE (G0008)By: Maritza Cantor Radiology - Hip - LeftBy: Alexy KEBEDE, On: 07-Apr-2013 Intent Maggie Armstrong Eprescribed prescriptions (G8553)By: On: 07-Apr-2013 Intent Raiza Ortiz Eprescribed prescriptions (G8553)By: On: 05-Jan-2013 Intent Raiza Ortiz Spirometry (76339)By: Alexy KEBEDE, On: 01-Dec-2012 Intent Maggie Armstrong Comments: good effort and curve normal Radiology - Chest- PA and LatBy: On: 01-Dec-2012 Intent Maggei Tracey DO Comments: stat call wet read Eprescribed prescriptions (G8553)By: On: 01-Dec-2012 Intent Raiza Ortiz Pulse Oximetry (80028)By: Angel, On: 01-Dec-2012 Intent Raiza Comments: 98% Eprescribed prescriptions (G8553)By: On: 27-Nov-2012 Intent Melanie DO, Doris Melanie DO, Doris Melanie DO, Doris MAMMOGRAM, SCREENING, BOTH BREASTS On: 29-Sep-2012 Intent ([id number])By: Maggie Tracey DO EKG (24559)By: Raiza Ortiz On: 29-Sep-2012 Intent Comments: ekg- 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 axis and no acute st t wave changes Eprescribed prescriptions (G8553)By: On: 29-Sep-2012 Intent Raiza Ortiz Eprescribed prescriptions (G8553)By: On: 03-Sep-2012 Intent Raiza Ortiz Eprescribed prescriptions (G8553)By: On: 30-Jul-2012 Intent Raiza Ortiz B 12 Injection, 1000 mcg (J3420)By: On: 23-Jun-2012 Intent Maggie Tracey DO Comments: Lot:[id number]:Dose:1mlRoute:IMSite:L armGiven By:SAADIA signed Eprescribed prescriptions (G8553)By: On: 23-Jun-2012 Intent Raiza Ortiz B 12 Injection, 1000 mcg (J3420)By: On: 25-Mar-2012 Intent Maricruz Rivera LPN Comments: Lot #[id number]-06/10Site-right deltoidDose-1 mlgiven by: Dani Rivera LPN Eprescribed prescriptions (G8553)By: On: 25-Mar-2012 Intent Alexy DOMaggie A FLU VAC, SPLIT, >3 YEARS, INTRAMUSC On: 25-Mar-2012 Intent (77438)By: Patsy Leslie LPN Comments: Lot/Exp: [id number], 12/2011Given in L Dltd, IMPrefilled SyringeBy CARYN Garner ADMINISTRATION OF INFLUENZA VIRUS On: 25-Mar-2012 Intent VACCINE (G0008)By: Patsy Leslie LPN Echo CompleteBy: Fast DO Maggie A On: 07-Dec-2011 Intent B 12 Injection, 1000 mcg (J3420)By: On: 07-Dec-2011 Intent [address] LPN CT - OtherBy: Fast DO, Maggie A On: 03-Oct-2011 Intent Comments: get cta of carotid arteries TDAP VACCINE >7 IM ([id number])By: On: 03-Oct-2011 Intent Raiza Ortiz B 12 Injection, 1000 mcg (J3420)By: On: 07-Sep-2011 Intent Raiza Ortiz Comments: Lot #[id number]-12/12Site-left deltoidDose-1 mlgiven by: Dani Rivera LPN Cartoid DopplerBy: Fast DO, Maggie A On: 07-Sep-2011 Intent Comments: in september DXA, BONE DENSITY, AXIAL SKELETON On: 07-Sep-2011 Intent ([id number])By: Alexy DO Maggie A MAMMOGRAM, SCREENING, BOTH BREASTS On: 07-Sep-2011 Intent (18989)By: Fast DO Maggie A Aerosol Treatment (51750)By: Ciesa On: 08-Aug-2011 Intent Kimberley LOVE EKG (19441)By: Raiza Ortiz On: 06-Jun-2011 Intent Comments: ekg showed normal sinus rhythym, left axis, no acute st/t wave changes DXA, BONE DENSITY, AXIAL SKELETON On: 06-Jun-2011 Intent (37424)By: Fast DO Maggie A FLU VAC, SPLIT, >3 YEARS, INTRAMUSC On: 11-May-2011 Intent ([id number])By: Maricruz Rivera LPN Comments: Lot #[id number]-86/20/Site-left deltoidgiven by: Dani Rivera LPN B 12 Injection, 1000 mcg (J3420)By: On: 11-May-2011 Intent Maricruz Rivera LPN Comments: Lot #[id number]-3/13Site-right deltoidDose-1 mlgiven by: Dani Rivera LPN ADMINISTRATION OF INFLUENZA VIRUS On: 11-May-2011 Intent VACCINE (G0008)By: Maricruz Rivera LPN B 12 Injection, 1000 mcg (J3420)By: On: 05-Mar-2011 Intent Maggie Tracey DO Comments: Lot #1234Exp-[id number]/Site-left deltoidDose-1 mlgiven by: Dani Rivera LPN Eprescribed prescriptions (G8553)By: On: 05-Mar-2011 Intent Maggie Tracey DO B 12 Injection, 1000 mcg (J3420)By: On: 07-Feb-2011 Intent Thelma Khan LPN Comments: 1ml given im lt dltd lot [id number] exp - Doppler Ultrasound OtherBy: Alexy KEBEDE, On: 24-Jan-2011 [...] PNEUM VAC ADLT/IMUMNOSPR, SBC/INTRM On: 03-Jul-2010 Intent (41743)By: Maggie Tracey DO Comments: Lot #[id number]-3//12Site-left deltoidDose- 0.5mlgiven by:GAL ADMINISTRATION OF PNEUMOCOCCAL On: 03-Jul-2010 Intent VACCINE (G0009)By: Maggie Tracey DO MAMMOGRAM, SCREENING, BOTH BREASTS On: 03-Jul-2010 Intent (78049)By: Maggie Tracey DO B 12 Injection, 1000 mcg (J3420)By: On: 20-Jun-2010 Intent Maggie Tracey DO Comments: Lot #[id number]-12/07Site-left deltoidDose-1 mlgiven by:[facility] B 12 Injection, 1000 mcg (J3420)By: On: 10-May-2010 Intent Apoorva Calle Comments: Lot:[id number]:12/07Dose:1000mcg/1mlRoute:IMSite:right deltoid Given by: HAY Birch FLU VAC, SPLIT, >3 YEARS, INTRAMUSC On: 10-May-2010 Intent (15363)By: Apoorva Calle Comments: Lot:[id number] 4PExp:10/2010Dose:0.5mlRoute:IMSite:Left Deltoid Given by: HAY Birch ADMINISTRATION OF INFLUENZA VIRUS On: 10-May-2010 Intent VACCINE (G0008)By: Apoorva Calle Doppler Ultrasound OtherBy: Alexy KEBEDE, On: 12-Apr-2010 Intent Maggie Armstrong Comments: both legs stat- left leg swelling- call wet read Spirometry (06331)By: Alexy KEBEDE, On: 12-Apr-2010 Intent Maggie Armstrong Comments: good effort and curve normal B 12 Injection, 1000 mcg (J3420)By: On: 05-Apr-2010 Intent Maggie Tracey DO Ultrasound - GallbladderBy: Alexy KEBEDE, On: 01-Feb-2010 Intent Maggie Nathaniel IV Needle placement (03871)By: On: 10-Jan-2010 Intent Ana Guzman Comments: IV 22 gauge inserted in right antecubital on first attempt and 0.9 NSS running without difficulty-AW INFUSION, NORMAL SALINE SOLUTION , On: 10-Jan-2010 Intent 1000 CC (Special Coverage Instructions Apply. 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, Briana Cartoid DopplerBy: Maggie Tracey DO A On: 14-Jun-[address] - Brain/HeadBy: Maggie Tracey DO A On: 06-Jun-2009 Intent MAMMOGRAM, SCREENING, BOTH BREASTS On: 06-Jun-2009 Intent ([id number])By: Maggie Tracey DO DXA, BONE DENSITY, AXIAL SKELETON On: 06-Jun-2009 Intent (24037)By: Maggie Tracey DO FLU VAC, SPLIT, >3 YEARS, INTRAMUSC On: 12-May-2009 Intent (73762)By: Maricruz Rivera LPN Comments: Lot #[id number]-left deltoidgiven by:[facility] ADMINISTRATION OF INFLUENZA VIRUS On: 12-May-2009 Intent VACCINE (G0008)By: Maricruz Rivera LPN Radiology - Hand - RightBy: Alexy KEBEDE, On: 26-Jan-2009 Intent Maggie Armstrong Radiology - Wrist - RightBy: Alexy On: 26-Jan-2009 Intent Maggie KEBEDE Comments: call wet read Pulse Oximetry (71866)By: Alexy KEBEDE, On: 27-Dec-2008 Intent Maggie A Comments: 98 Inhaler Demo (55091)By: Alexy KEBEDE, On: 27-Dec-2008 Intent Maggie Nathaniel Spirometry (03485)By: Alexy KEBEDE, On: 27-Dec-2008 Intent Maggie A Comments: good effort and curve has small airways diminished Radiology - Chest- PA and LatBy: On: 27-Dec-2008 Intent Maggie Tracey DO Echo CompleteBy: Maggie Tracey DO On: 08-Nov-2008 Intent Comments: elevated bp - increase patricia EKG (63625)By: Maggie Tracey DO A On: 08-Nov-2008 Intent Comments: ekg showed normal sinus rhythym, leftl axis, no acute st/t wave changes rsr unchanged Bio Z (37912)By: Maggie Tracey DO On: 08-Nov-2008 Intent Inhaler Demo (84696)By: Melanie KEBEDE, On: 02-Sep-2008 Intent Doris Melanie DO, Doris Melanie DO, Doris Aerosol Treatment (73094)By: Melanie On: 02-Sep-2008 Intent Doris KEBEDE Melanie DO, Doris Comments: less echoey -- better less cough Doris Navarro DO EKG (33246)By: Doris Navarro DO On: 16-Dec-2007 Intent Doris Navarro DO, DO, Comments: NSR NO ACUTE CHANGES Doris B 12 Injection, 1000 mcg (J3420)By: On: 13-Nov-2007 Intent Thelma Khan LPN Comments: 1000mcg/ml 1 ml given im lt dltd lot [id number] exp 07-06. Pt tolerated well. B 12 Injection, 1000 mcg (J3420)By: On: 30-Jul-2007 Intent Doris Navarro DO DO, Doris Navarro DO, Doris EXCISION BGN LSN TRNK/ARM/LEG On: 09-Jul-2007 Intent 0.6-1.0 CM (51196)By: Kimberley Loyd CNP BIOPSY OF SKIN LESION, SINGLE On: 09-Jul-2007 Intent (14215)By: Kimberley Loyd CNP SHAVE SKIN LESION, TRUNK/ARM/LEG On: 02-Jul-2007 Intent ([id number])By: Kimberley Loyd CNP BIOPSY OF SKIN LESION, SINGLE On: 02-Jul-2007 Intent ([id number])By: Kimberley Loyd CNP B 12 Injection, 1000 mcg (J3420)By: On: 02-Jul-2007 Intent Jesus RUBIN, Lashonda FLU VAC, SPLIT, >3 YEARS, INTRAMUSC On: 04-Jun-2007 Intent (80913)By: Jing Cabello RN Comments: Lot #: [id number] date: 01/03Amount given: 0.5 MLRoute: IMSite given: Left deltoidGiven by: Nathaniel Beal LPN IMMUNIZ ADMNIN, 1 VAC, SNGL/COMBO On: 04-Jun-2007 Intent (62873)By: Mast Jing ALBARRAN B 12 Injection, 1000 mcg (J3420)By: On: 04-Jun-2007 Intent Mast Jing ALBARRAN B 12 Injection, 1000 [...] DO, Doris Melanie DO, Doris IV Infusion ([id number])By: Melanie KEBEDE, On: 18-Oct-2006 Intent Doris Melanie DO, Doris Melanie DO, Doris EKG (45611)By: Doris Navarro DO On: 10-Oct-2006 Intent Melanie [...] DO, Doris Melanie DO, Doris Melanie DO, Doirs Vitamin B-12 1000 MCG/ML Injection Solution Ordered: [...] Injection Solution Ordered: 07-Feb-2011 Pending Thelma Khan DIRECTOR DIETETICS DEPARTMENT Vitamin B-12 1000 MCG/ML Injection Solution Ordered: 05-Mar-2011 Pending Fast DO, Maggie A Vitamin B-12 1000 MCG/ML Injection Solution Ordered: 11-May-2011 Pending Miguel DIRECTOR DIETETICS DEPARTMENT, Maricruz Vitamin B-12 1000 MCG/ML Injection Solution Ordered: 07-Sep-2011 Pending Raiza Ortiz Vitamin B-12 1000 MCG/ML Injection Solution Ordered: 07-Dec-2011 Pending Anuj GILBERTN, Patsy Stuart Vitamin B-12 1000 MCG/ML Injection Solution Ordered: 25-Mar-2012 Pending Miguel DIRECTOR DIETETICS DEPARTMENT, Maricruz Vitamin B-12 1000 MCG/ML Injection Solution [...] The patient does have durable power of brick loader and living will. Other providers contributing to [...] 13 steps at home. I was at [facility] for 3 days in ICU I broke [...] The patient does have durable power of brick loader and living will. The patient has noticed [...] and she off pravastatin and went to [place] and now on 5 mg of crestor- and tolerated she got leg pain and weakness on pravachol- - she got good [employer] on stroke and vascular in [place]- --bp is good and cough gone and [...] The patient does have durable power of brick loader and living will. The damián ent has [...] since going to the urgent care at [facility]- on atb yet but will [...] bp is great- went to [facility] for vascular check and said ok- no [...] stroke sx mood controlled has followup in [facility] for vascular issues soon- no chest [...] The patient does have durable power of brick loader and living will. The patient has noticed [...] not home- no gerd - went to [place] for artery checks and doing ok there- [...] laboratory test results: she went back to [facility] Saw Dr Shruthi Quinones- ??head [...] ER visit: note: (stroke she was at [facility] x 5days released on saturday05/22/12 to 05/27/12). The patient feels well with minor complaints, has decreased energy End: 29-May-2012 14:12 level and is sleeping well. Patient has been compliant with instructions. Current medication use: compliant with dosing regimen. Patient sleeps 7 hours per night. Nutrition: balanced diet and supplement al vitamins. [facility]: [facility] (434.91), Benign essential hypertension (401.1), Diabetes type II,controlled no comp (250.00), Hypothyroidism (244.9), Carotid stenosis (433.10) [facility] Office Visit On: 22-May-2012 10:33 Encounter Reason: Follow up hospital - Reason for ER visit: note: (TIA. 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
--- OUTSIDE RECORDS SUMMARY | 2018-10-18 13:30 | XMS RPT_ITS ---
:1940 Author Organization OHIP Support Name Relationship Address Phone MELANIE FRIEDMAN Unrelated Friend Unavailable + [place] [address] FABYFRANTZ THORNE [address] + [place] [address] R Unknown Unavailable Unavailable BONDALTON, MELANIE Unrelated Friend Unavailable + [place] [address] ANTHONY, FRANTZ [address] + [place] [address] R Unknown Unavailable Unavailable BONDALTON, MELANIE Unrelated Friend Unavailable + [place] [address] FRANTZ CRUZ [address] + [place] [address] R Unknown Unavailable Unavailable BONDALTON, MELANIE Unrelated Friend Unavailable + [place] [address] ANTHONY, FRANTZ [address] + [place] [address] R Unknown Unavailable Unavailable BONDALTON, MELANIE Unrelated Friend Unavailable + [place] [address] FRANTZ CRUZ [address] + [place] [address] R Unknown Unavailable Unavailable BONDALTON, MELANIE Unrelated Friend Unavailable + [place] [address] ANTHONY, FRANTZ [address] + [place] [address] R Unknown Unavailable Unavailable BONITZ, MELANIE Unrelated Friend Unavailable + [place] [address] ANTHONY, FRANTZ [address] + [place] [address] R Unknown Unavailable Unavailable BONDALTON, MELANIE Unrelated Friend Unavailable + [place] [address] FRANTZ CRUZ [address] + [place] [address] R Unknown Unavailable Unavailable BONITZ, MELANIE Unrelated Friend Unavailable + [place] [address] FRANTZ CRUZ [address] + [place] [address] R Unknown Unavailable Unavailable BONITZ, MELANIE Unrelated Friend Unavailable + [place] [address] FRANTZ CRUZ [address] + [place] [address] R Unknown Unavailable Unavailable BONITZ, MELANIE Unrelated Friend Unavailable + FRANTZ CRUZ [address] + [place] [address] R Unknown Unavailable Unavailable BONITZ, MELANIE Unrelated Friend Unavailable + FRANTZ CRUZ [address] + [place] [address] R Unknown Unavailable Unavailable BONITZ, MELANIE Unrelated Friend Unavailable + FRANTZ CRUZ [address] + [place] [address] R Unknown Unavailable Unavailable BONITZ, MELANIE Unrelated Friend Unavailable + FRANTZ CRUZ [address] + [place] [address] R Unknown Unavailable Unavailable BONITZ, MELANIE Unrelated Friend . + ., . . FRANTZ CRUZ [address] + [place] [address] R Unknown Unavailable Unavailable Care Team Providers Name Role Phone CRISTINA COTTON Attending Unavailable CRISTINA COTTON S Referring Unavailable CRISTINA COTTON S Referring Unavailable Melanie DO, Doris Attending Unavailable Fast DO, Maggie A Referring Unavailable Melanie DO, Doris Consulting Unavailable Melanie, Doris Primary Care Unavailable Johnnie Baez Attending Unavailable Melanie, Doris Attending Unavailable Melanie, Doris Primary Care Unavailable DOCTOR, OUT OF TOWN Attending Unavailable Melanie, Doris Primary Care Unavailable Melanie, Doris Primary Care Unavailable Zee Denise Attending Unavailable Melanie, Doris Primary Care Unavailable Thelma Sofia ELASTIC YARN TWISTER-C Attending Unavailable Thelma Sofia ELASTIC YARN TWISTER-C Referring Unavailable Melanie, Doris Attending Unavailable Melanie, Doris Referring Unavailable Melanie, Doris Primary Care Unavailable Melanie, Doris Attending Unavailable Melanie, Doris Primary Care Unavailable Melanie, Doris Primary Care Unavailable Ashelfah, Ghasem Admitting Unavailable Rod Melendrez Consulting Unavailable Tereletsky, Lance Attending Unavailable Ashelfah, Ghasem Attending Unavailable Melanie, Doris Primary Care Unavailable Ashelfah, Ghasem Admitting Unavailable Tereletsky, Lance Attending Unavailable Melanie, Doris Primary Care Unavailable Rod Melendrez Consulting Unavailable Tereletsky, Lance Consulting Unavailable Melanie, Doris Attending Unavailable Melanie, Doris Referring Unavailable Melanie, Doris Primary Care Unavailable Lary, Jason Attending Unavailable Melanie, Doris Primary Care Unavailable JwayZee sanchez Attending Unavailable Melanie, Doris Attending Unavailable Melnaie, Doris Referring Unavailable Melanie, Doris Primary Care Unavailable Melanie, Doris Attending Unavailable Melanie, Doris Referring Unavailable Melanie, Doris Primary Care Unavailable Purpose Purpose PROBLEMS PROBLEMS DATE TYPE CONDITION / CODE ATTENDING STATUS SOURCE 08/21/2012 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 / Repository I65.1(ICD-10) 08/01/2018 Unknown M54.32 - MelanieDoris driscoll Active [place] [facility], left [facility] M54.32(ICD-10) Repository 08/01/2018 Unknown M54.31 - Melanie, Doris Active [facility] Sciatica, right [facility] M54.31(ICD-10) Repository 05/14/2018 Unknown R52 - Pain, Jwayyed, Active [facility] unspecified / [facility]epat[facility] R52(ICD-10) Hospital Repository 02/27/2018 Unknown R74.8 - Abnormal Melanie, Doris Active [place] levels of other [facility] serum enzymes / Hospital R74.8(ICD-10) Repository 05/08/2018 Unknown M25.552 - Pain in MelanieDoris driscoll Active [place] left hip / [facility] M25.552(ICD-10) Hospital Repository PROCEDURES PROCEDURES No Procedure Records FoundVITAL SIGNS VITAL SIGNS No Vital Signs Records FoundRESULTS RESULTS INITAL EVALUATION (1) Observed: 08/13/2018 Status: F Source: [place] - PT [facility] [address] [place] [address] / REHABILITATION SERVICES INITIAL EVALUATION MR#: [id number] Acct: [id number] Name: MARICRUZ GRIGSBY Rep #: [id number] : 1940 78 From: Karen Flores DPT [...] to be FAXED BACK to us at [phone] for Medicare purposes. For Medicare only, by signing this I certify the plan of care. Please let me know if there are questions or concerns regarding this plan of care. Physician Signature: Date: <Electronically signed by Karen GODWINT> 08/13/18 1550 CC: Doris Navarro DO ELR Signed INITAL EVALUATION (1) Observed: 08/13/2018 Status: F Source: [facility] - PT 3:48 PM [facility] REPOSITORY [facility] [address] [place] [address] / REHABILITATION SERVICES INITIAL EVALUATION MR#: [id number] Acct: [id number] Name: MARICRUZ GRIGSBY Rep #: [id number] : 1940 78 From: Karen Flores DPT Referring Dr.: Doris Navarro DO Status: REG RCR Insurance: [facility] MEDICARE S[employer]IOR [employer] SELF PAY INSURANCE Patient's [...] to be FAXED BACK to us at [phone] for Medicare purposes. For Medicare only, by signing this I certify the plan of care. Please let me know if there are questions or concerns regarding this plan of care. Physician Signature: Date: <Electronically signed by Karen Flores DPT> 08/13/18 1548 CC: Doris Navarro DO ELR Signed US TCD POSTERIOR CIRC Observed: 08/07/2018 Status: F Source: [place] 12:08 PM [facility] REPOSITORY * * *Final Report* * * DATE OF EXAM: Aug 07 2018 12:08PM [facility] [place] TCD POSTERIOR CIRC / [...] The proximal subclavian arteries are unremarkable bilaterally. Machine Rope Maker: PSCB Transcribe Date/Time: Aug 07 2018 12:12P Dictated by : MAURILIO HEATH MD This examination was interpreted and the report reviewed and electronically signed by: MAURILIO HEATH MD on Aug 07 2018 5:44PM EST [id number] INITAL EVALUATION (1) Observed: 07/31/2018 Status: F Source: [facility] - PT 2:57 PM [facility] REPOSITORY [facility] [address] [place] [address] Rd. [address] [place] [address] / REHABILITATION SERVICES INITIAL EVALUATION MR#: [id number] Acct: [id number] Name: MARICRUZ GRIGSBY Rep #: [id number] : 1940 78 From: Eugenio Correa DPT [...] to be FAXED BACK to us at [phone] for Medicare purposes. For Medicare only, by signing this I certify the plan of care. Please let me know if there are questions or concerns regarding this plan of care. Physician Signature: Date: <Electronically signed by Eugenio Correa DPT> 07/31/18 1457 CC: Doris Navarro DO CLS Signed DISCHARGE INSTRUCTION Observed: 07/16/2018 Status: F Source: [place] 4:47 PM [facility] REPOSITORY [facility] Medical Records Department [address] [place] [address] Discharge Instruction 07/16/18 1405 MR#: [id number] Acct: [id number] Name: MARICRUZ GRIGSBY Rep #: [id number] : 1940 78 From: Johnnie Baez MD [...] your Primary Care Provider. Call [facility] ([phone]) or report to the closest Emergency Room. Call 911 if necessary. 07/16/18 1647 <Electronically signed by Johnnie Baez MD> Date Johnnie Baez MD Cosigner Signature (If Indicated): Date CC: Doris Navarro DO EMERGENCY DEPARTMENT Observed: 07/16/2018 Status: F Source: [place] SUMMARY 4:47 PM [facility] REPOSITORY [facility] Medical Records Department [address] [place] [address] Emergency Department Summary 07/16/18 1249 MR#: [id number] Acct: [id number] Name: MARICRUZ GRIGSBY Rep #: [id number] : 1940 78 From: Johnnie Baez MD PCP: Doris Navarro DO Status: DEP ER - ER Visit Summary Date of Service: 07/16/18 Chief Complaint: Nausea, vomiting and diarrhea. History of Present Illness: The patient is a 78 F past medical history of prior stroke, hypertension nmg-abbrcff-yeorqdvpb diabetes. Patient states last 3-4 days she [...] diarrhea secondary to viral gastroenteritis History of tnp-celhisw-ypelgiewj diabetes. This note was generated with Appota dictation software. It may contain incorrect words, [...] your Primary Care Provider. Call [facility] ([phone]) or report to the closest Emergency Room. Call 911 if necessary. 07/16/18 5307 <Electronically signed by Johnnie Baez MD> Date [...] Lymph 0.98 Performed By: #### L100.0100 #### [facility] [address] [place], [address] BASIC METABOLIC Collected: 07/16/2018 Status: F Source[facility] PROFILE (BMP) 12:55 PM [facility] GAP 13 Performed By: #### L500.2500 #### [facility] [address] [place], [address] L/S SPINE MIN 4 Observed: 06/24/2018 Status: F Source: [facility] VIEWS 2:13 PM [facility] REPOSITORY [facility] Imaging Services [address] [place] [address] L/S Spine Min 4 Views MR#: [id number] Acct: [id number] Name: MARICRUZ GRIGSBY Rep #: [id number] : 1940 F 78 From: Mack Soni MD PCP: Doris Navarro DO Status: REG CLI Study: L/S Spine Min 4 Views Date of Exam: 06/24/18 Exam# [id number] Ordering Dr: Doris Navarro DO STUDY: X-RAY [...] Service support , CC: Doris Navarro DO Machine Rope Maker: Signed EMERGENCY DEPARTMENT Observed: 05/14/2018 Status: F Source: [facility] SUMMARY 3:30 PM [facility] REPOSITORY [facility] Medical Records Department [address] [place] [address] Emergency Department Summary 05/14/18 0908 MR#: [id number] Acct: [id number] Name: MARICRUZ GRIGSBY Rep #: [id number] : 1940 78 From: Zee Denise MD [...] her family doctors she is referred to [facility] for the shoulder injury and she will return for change in symptoms and she is comfortable with this plan Treatment Plan: [] Disposition: [] Stable home Impression: [] Fall left rib fracture, left shoulder injury This note was generated with Appota dictation software. It may contain incorrect words, [...] your Primary Care Provider. Call [facility] ([phone]) or report to the closest Emergency Room. Call 911 if necessary. 05/14/18 1530 <Electronically signed by Zee Denise MD> Date Zee Denise MD Cosigner Signature (If Indicated): Date CC: Doris Navarro DO DISCHARGE INSTRUCTION Observed: 05/14/2018 Status: F Source: [place] 11:34 AM [facility] REPOSITORY [facility] Medical Records Department [address] [place] [address] Discharge Instruction 05/14/18 1133 MR#: [id number] Acct: [id number] Name: MARICRUZ GRIGSBY Stuart Rep #: [id number] : 1940 78 From: Zee Denise MD PCP: Doris Navarro DO Status: REG ER ED Disposition - Plan for ED Patient: Chief Complaint: Fall Instructions: ED Mechanical Fall, ED Fx Rib, ED Sprain Shoulder, ED Sling Prescriptions: Hydrocodone Bitart/Apap 5-325 [[place] 5MG-325MG] 1 tab PO Q6H PRN PRN 3 Days #10 tab PRN Reason: Pain Referrals: Doris Navarro, [Primary Care Provider] - What to do if you have Problems For any increased pain, shortness of breath, bleeding, nausea or vomiting, chest pain, or any unexpected problems, contact your Primary Care Provider. Call [facility] ([phone]) or report to the closest Emergency Room. Call 911 if necessary. 05/14/18 1134 <Electronically signed by Zee Denise MD> Date Zee Denise MD Cosigner Signature (If Indicated): Date CC: Doris Navarro DO CHEST PA AND LATERAL Observed: 05/14/2018 Status: F Source: [place] 8:58 AM [facility] REPOSITORY [facility] Imaging Services [address] [place] [address] Chest PA and Lateral MR#: [id number] Acct: [id number] Name: MARICRUZ GRIGSBY Rep #: [id number] : 1940 F 78 From: Teo Garrido MD PCP: Doris Navarro DO Status: REG ER Study: Chest PA and Lateral Date of Exam: 05/14/18 Exam# [id number] Ordering Dr: Zee Denise MD STUDY: X-RAY [...] Teo Garrido MD at 10:11 EDT Tel [phone], Service support , CC: MD Sonam Denise; Doris Navarro DO Machine Rope Maker: Signed ELBOW MIN 3 VIEWS Observed: 05/14/2018 Status: F Source: [place] 8:58 AM [facility] REPOSITORY [facility] Imaging Services [address] [place] [address] Elbow min 3 Views MR#: [id number] Acct: [id number] Name: CLIFFORD CRUZMARICRUZ Rep #: [id number] : 1940 F 78 From: Teo Garrido MD PCP: Doris Navarro DO Status: REG ER Study: Elbow min 3 Views Date of Exam: 05/14/18 Exam# [id number] Ordering Dr: Zee Denise MD STUDY: X-RAY [...] Teo Garrido MD at 10:12 EDT Tel [phone], Service support , CC: MD Sonam Denise; Doris Navarro DO Machine Rope Maker: Signed SHOULDER MIN 2 VIEWS Observed: 05/14/2018 Status: F Source: [facility] 8:58 AM [facility] REPOSITORY [facility] Imaging Services [address] [place] [address] Shoulder min 2 Views MR#: [id number] Acct: [id number] Name: MARICRUZ GRIGSBY Rep #: [id number] : 1940 F 78 From: Teo Garrido MD PCP: Doris Navarro DO Status: REG ER Study: Shoulder min 2 Views Date of Exam: 05/14/18 Exam# [id number] Ordering Dr: Zee Denise MD STUDY: X-RAY [...] Teo Garrido MD at 11:02 EDT Tel [phone], Service support , CC: MD Sonam Denise; Doris Navarro DO Machine Rope Maker: Signed 12 LEAD ELECTROCARDIOGRAM Observed: 2018 Status: F Source: [facility] 2:13 PM [facility] REPOSITORY [facility] Cardiovascular Services [address] [place] [address] 12 Lead EKG 02/06/18 1825 MR#: [id number] Acct: [id number] Name: MARICRUZ GRIGSBY Rep #: [id number] : 1940 77 From: Jason Barth MD Attending Dr: Lance Messina DO Status: DIS DEEPAK Ordering Dr: Jered Marte MD Date: 02/06/18 Location: [facility] Sex: F C Admitted: 02/06/18 Test [...] Confirmed by JASON BARTH MD ([id number]), video tape editor STACY CARTER ([id number]) on 2018 2:12:44 PM Referred By: RON Confirmed By:JASON BARTH MD 02/11/18 1412 Date Jason Barth MD CC: Doris Melanie DO; Lance Messina DO; Jered Marte Signed LIVER PROFILE Collected: 02/10/2018 Status: F Source: [place] 8:44 AM [facility] REPOSITORY Order Comment: Comments: ANTI-LIVER/KIDNEY MICRO AB [id number] SER/RF TYPE CODE TESTS RESULT OUT OF [...] BILI 0.17 Performed By: #### L500.3400, L501.5100, L501.79431, L501.9520, L503.6550, L506.0400 #### [facility] [address] [facility] [place], [address] GGTP Collected: 02/10/2018 Status: F Source: [place] 8:44 AM [facility] REPOSITORY Order Comment: Comments: ANTI-LIVER/KIDNEY MICRO AB [id number] SER/RF TYPE CODE TESTS RESULT OUT OF RANGE REFERENCE UNITS LAB L501.5100 5-55 U/L High GGTP 64 Performed By: #### L500.3400, L501.5100, L501.96973, L501.9520, L503.6550, L506.0400 #### [facility] [address] [facility] [place], [address] FREE T3 Collected: 02/10/2018 Status: F Source: [place] 8:44 AM [facility] REPOSITORY Order Comment: Comments: ANTI-LIVER/KIDNEY MICRO AB [id number] SER/RF TYPE CODE TESTS RESULT OUT OF RANGE REFERENCE UNITS LAB L501.70012 2.18-3.98 pg/mL Low FREE T3 1.6 Performed By: #### L500.3400, L501.5100, L501.73555, L501.9520, L503.6550, L506.0400 #### [facility] [address] [place], [address] THYROID STIM HORMONE Collected: 02/10/2018 Status: F Source: [facility] ([facility]) 8:44 AM [facility] REPOSITORY Order Comment: Comments: ANTI-LIVER/KIDNEY MICRO AB [id number] SER/RF TYPE CODE TESTS RESULT OUT OF RANGE REFERENCE UNITS LAB L501.9520 0.358-3.74 uIU/mL High TSH 16.40 Performed By: #### L500.3400, L501.5100, L501.97723, L501.9520, L503.6550, L506.0400 #### [facility] [address] [place] [address]. [place], [address] FERRITIN Collected: 02/10/2018 Status: F Source: [place] 8:44 AM [facility] REPOSITORY Order Comment: Comments: ANTI-LIVER/KIDNEY MICRO AB [id number] SER/RF TYPE CODE TESTS RESULT OUT OF RANGE REFERENCE UNITS LAB L503.6550 8-252 ng/mL Normal FERRITIN 236 Performed By: #### L500.3400, L501.5100, L501.44815, L501.9520, L503.6550, L506.0400 #### [facility] [address] [place], [address] T4 FREE DIRECT Collected: 02/10/2018 Status: F Source: [place] 8:44 AM [facility] REPOSITORY Order Comment: Comments: ANTI-LIVER/KIDNEY MICRO AB [id number] SER/RF TYPE CODE TESTS RESULT OUT OF RANGE REFERENCE UNITS LAB L506.0400 0.76-1.46 ng/dL Normal T4 FREE 1.06 DIRECT Performed By: #### L500.3400, L501.5100, L501.86973, L501.9520, L503.6550, L506.0400 #### [facility] [address] [place], [address] ANTI-MITOCHONDRIAL AB Collected: Status: F Source: [place] [...] Normal Negative MELI-DIRECT Result Comment: Performed at: [facility] [id number] Political Science Faculty Member: Constantine Christianson PhD, Phone: [phone] Performed By: #### L800.1280, L3100.5475 #### [facility] (refer to report for specific site) refer to report for address and phone number ANTI-SMOOTH MUSCLE ABS Collected: 02/10/2018 Status: F Source: [place] 8:44 AM [facility] REPOSITORY Order Comment: Comments: ANTI-LIVER/KIDNEY MICRO AB [id number] SER/RF TYPE CODE TESTS RESULT OUT OF [...] REPOSITORY Order Comment: Comments: ANTI-LIVER/KIDNEY MICRO AB [id number] SER/RF TYPE CODE TESTS RESULT OUT OF RANGE REFERENCE UNITS LAB L3100.0200 Negative Normal HEP A Negative IgM 6734 LAB L3100.0400 Negative Normal HB Negative SURF AG LAB L3100.0440 Negative Normal HB Negative CORE [id number] LAB L3100.0650 0.0-0.9 s/co ratio Normal HEP C <0.1 AB Result Comment: Negative: < 0.8 Indeterminate: 0.8 - 0.9 Positive: > 0.9 The CDC recommends that a positive HCV antibody result be followed up with a HCV Nucleic Acid Amplification test ([id number]). Performed By: #### L803.2200, L3000.0375, L3400.0700, L3400.1500, L3400.3800 #### [facility] (refer to report for specific site) refer to report for address and phone number CERULOPLASMIN Collected: 02/10/2018 Status: F Source: [place] 8:44 AM [facility] REPOSITORY Order Comment: Comments: ANTI-LIVER/KIDNEY MICRO AB [id number] SER/RF TYPE CODE TESTS RESULT OUT OF RANGE REFERENCE UNITS LAB L3400.0700 19.0-39.0 mg/dL Normal CERULOPLAS 1560 22.0 Performed By: #### L803.2200, L3000.0375, L3400.0700, L3400.1500, L3400.3800 #### [facility] (refer to report for specific site) refer to report for address and phone number CMV ACUTE ANTIBODY Collected: 02/10/2018 Status: F Source: [facility] 8:44 AM [facility] REPOSITORY Order Comment: Comments: ANTI-LIVER/KIDNEY MICRO AB [id number] SER/RF TYPE CODE TESTS RESULT OUT OF [...] REPOSITORY Order Comment: Comments: ANTI-LIVER/KIDNEY MICRO AB [id number] SER/RF TYPE CODE TESTS RESULT OUT OF RANGE REFERENCE UNITS LAB L3400.3800 200-370 mg/dL Normal TRANSFERRN 4937 250 Result Comment: Performed at: [address] [id number] Political Science Faculty Member: Constantine Christianson PhD, Phone: [phone] Performed By: #### L803.2200, L3000.1745, L3400.0700, L3400.1500, L3400.3800 #### [facility] (refer to report for specific site) refer to report for address and phone number MISCELLANEOUS LAB Collected: 02/10/2018 Status: F Source: [place] PROCEDURE 8:44 AM [facility] REPOSITORY Order Comment: Comments: ANTI-LIVER/KIDNEY MICRO AB [id number] SER/RF Test(s) Ordered: ANTI-LIVER/KIDNEY MICROS AB [id number] SER/RF TYPE CODE TESTS RESULT OUT OF RANGE REFERENCE UNITS LAB L801.1541 Normal [facility] LAB TEST Result Comment: TEST RESULT UNITS [...] INFORMATION. Performed By: #### L801.1541 #### [place] [facility] [address] [place], [address] CAROTID DUPLEX Observed: 02/08/2018 Status: F Source: [facility] ULTRASOUND 10:31 AM [facility] REPOSITORY [facility] Cardiovascular Services [address] [place] [address] Carotid Duplex Ultrasound 02/07/18 0840 MR#: [id number] Acct: [id number] Name: MARICRUZ GRIGSBY Rep #: [id number] : 1940 77 From: Mehran Damon MD [...] the left vertebral artery. Procedure Carotid Duplex 70090. Exam performed portable in patient room. Interpretation [...] Dictated: 02/07/18 0840 Date Transcribed: 02/08/18 1030 Machine Rope Maker: Signed DISCHARGE SUMMARY Observed: 02/07/2018 Status: F Source: [place] 5:15 PM [facility] REPOSITORY [facility] Medical Records Department [address] [place] [address] Discharge Summary 02/07/18 1710 MR#: [id number] Acct: [id number] Name: MARICRUZ GRIGSBY Rep #: [id number] : 1940 77 From: Lance Messina DO PCP: Doris Navarro DO Status: DIS DEEPAK Y Location: [place] [id number] Discharge Date and Diagnosis Date of Admission: [...] in the emergency room at [facility] with chief complaint of double vision. [...] Rod Melendrez MD When: in 2-3 weeks [phone] Disposition: Home Minutes spent on discharge:: 25 Patient Condition:: Stable Medical Necessity - Tobacco Use Smoking Status: Never smoker Meaningful Use Info Meaningful Use Diagnoses (Choose all that apply): None applicable Code Visit OBSV E AND M: 75793 Observation care discharge 02/07/18 1715 <Electronically signed by Lance Messina DO> Date Lance Messina DO Cosigner Signature (if applicable): Date CC: Doris Navarro DO; Lance Messina DO Signed DISCHARGE INSTRUCTION Observed: 02/07/2018 Status: F Source: [facility] 4:42 PM [facility] REPOSITORY [facility] Medical Records Department [address] [place] [address] Instructions for Home/Discharge Instructions 02/07/18 1639 MR#: [id number] Acct: [id number] Name: CLIFFORD CRUZMARICRUZ Stuart Rep #: [id number] : 1940 77 From: Lance Messina DO [...] Rod Melendrez MD When: in 2-3 weeks [phone] 02/07/18 1642 <Electronically signed by Lance Messina [...] Performed By: #### L501.080 #### [facility] Point of Care [address] [place] [address] [facility] FRONT OFFICE COORDINATOR AB, Collected: 02/07/2018 Status: F Source: [place] BLOCK[place] 12:58 PM [facility] REPOSITORY TYPE CODE TESTS RESULT OUT OF RANGE REFERENCE UNITS LAB L3410.0100 0-25 % Normal [facility] REC 11 [address] Result Comment: Negative: 0 - 25 Borderline: 26 - 30 Positive: >30 Results for this test are for research purposes only by the assay's harvest worker field crop. The performance characteristics of this product have not been established. Results should not be used as a diagnostic procedure without confirmation of the diagnosis by another medically established diagnostic product or procedure. Performed By: #### L3410.0100, L3410.0200 #### [facility] (refer to report for specific site) refer to report for address and phone number [facility] AB MODULATING Collected: 02/07/2018 Status: F Source: [facility] 12:58 PM [facility] REPOSITORY TYPE CODE TESTS RESULT OUT OF RANGE REFERENCE UNITS LAB L3410.0200 0-20 % Normal ACHR AB <12 37463 Result Comment: Negative: <21 Equivocal: 21 - 25 Positive: >25 The assay is linear between values of 12 and 64. Those <12 and >64 are reported as such. No single value for ACR-modulating antibody should be used as a sole basis for diagnosis or response to therapy. Performed at: [address] [id number] Political Science Faculty Member: Frantz Josue MD, Phone: [phone] Performed By: #### L3410.0100, L3410.0200 #### [facility] (refer to report for specific site) refer to report for address and phone number ECHOCARDIOGRAM COMPLETE Observed: 02/07/2018 Status: F Source: [facility] 12:22 PM [facility] REPOSITORY [facility] Cardiovascular Services [address] [place] [address] Echo Complete 02/07/18 1102 MR#: [id number] Acct: [id number] Name: MARICRUZ GRIGSBY Rep #: [id number] : 1940 77 From: Jason Barth MD Attending Dr: Lance Messina DO Status: ADM DEEPAK Ordering Dr: María Barnes MD Date: 02/06/18 Location: [facility] Sex: F C Admitted: 02/06/18 Reason [...] Dictated: 02/07/18 1102 Date Transcribed: 02/07/18 1221 Machine Rope Maker: Signed BEDSIDE GLUCOSE Collected: 02/07/2018 Status: F Source: [place] 11:25 AM [facility] REPOSITORY TYPE CODE TESTS RESULT OUT OF REFERENCE UNITS RANGE LAB L501.080 70-110 mg/dL High BEDSIDE GLU 224 Result Comment: MANAGEMENT OF PATIENT CARE PER NURSING PROTOCOL Performed By: #### L501.080 #### [facility] Point of Care [address] [place], [place] [address] BEDSIDE GLUCOSE Collected: 02/07/2018 Status: F Source: [place] 6:44 AM [facility] REPOSITORY TYPE CODE TESTS RESULT OUT OF REFERENCE UNITS RANGE LAB L501.080 70-110 mg/dL High BEDSIDE GLU 161 Result Comment: MANAGEMENT OF PATIENT CARE PER NURSING PROTOCOL Performed By: #### L501.080 #### [facility] Point of Care [address] [place] [address] LIPID PROFILE Collected: 02/07/2018 Status: F Source: [...] Performed By: #### L500.4100 #### [facility] [address] [facility] [place], [address] EMERGENCY DEPARTMENT Observed: 02/07/2018 Status: F Source: [facility] SUMMARY 12:12 AM [facility] REPOSITORY [facility] Medical Records Department [address] [place] [address] Emergency Department Summary 02/06/182020 MR#: [id number] Acct: [id number] Name: MARICRUZ GRIGSBY Rep #: [id number] : 1940 77 From: Jered Marte MD [...] 1. Diplopia This note was generated with Appota dictation software. It may contain incorrect words, [...] problems, contact your Primary Care Provider. Call [facility] ([phone]) or report to the closest Emergency Room. [...] Performed By: #### L501.080 #### [facility] Point of Care [address] [place] [place] [address] BRAIN WITHOUT Observed: 02/06/2018 Status: F Source: [facility] CONTRAST 9:54 PM [facility] REPOSITORY [facility] Imaging Services [address] [place] [address] Brain without Contrast MR#: [id number] Acct: [id number] Name: MARICRUZ GRIGSBY Rep #: [id number] : 1940 F 77 From: Darby Franco PCP: Doris Navarro DO Status: ADM DEEPAK Study: Brain without Contrast Date of Exam: 02/07/18 Exam# [id number] Ordering Dr: María Barnes MD STUDY: MRI [...] , CC: María Barnes; Doris Navarro DO Machine Rope Maker: Signed HISTORY AND PHYSICAL Observed: 02/06/2018 Status: F Source: [facility] EXAM 9:09 PM [facility] REPOSITORY [facility] Medical Records Department [address] [place] [address] History and Physical 02/06/182050 MR#: [id number] Acct: [id number] Name: MARICRUZ GRIGSBY Rep #: [id number] : 1940 77 From: María Barnes MD [...] cholecystectomy Psychiatric History: No pertinent 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 This note was generated with GoodChime!ation software. It may contain incorrect words, spelling, and punctuation that were not noted in checking the note before signing. Code Visit OBSV E AND M: 98544 Initial observation care L3 02/06/182108 <Electronically signed by María Barnes MD> Date María Barnes MD Cosigner Signature: Date (if applicable) CC: María Barnes; Doris Navarro DO Signed BEDSIDE GLUCOSE Collected: 02/06/2018 Status: F Source: [facility] 6:16 PM [facility] REPOSITORY TYPE CODE TESTS RESULT OUT OF REFERENCE UNITS RANGE LAB L501.080 70-110 mg/dL High BEDSIDE GLU 152 Result Comment: MANAGEMENT OF PATIENT CARE PER NURSING PROTOCOL Performed By: #### L501.080 #### [facility] Point of Care [address] [place] [address] CHEST 1 VIEW Observed: 02/06/2018 Status: F Source: [facility] 5:56 PM [facility] REPOSITORY [facility] Imaging Services [address] [place] [address] Chest 1 View MR#: [id number] Acct: [id number] Name: MARICRUZ GRIGSBY Rep #: [id number] : 1940 F 77 From: Renata Lee MD PCP: Doris Navarro DO Status: REG ER Study: Chest 1 View Date of Exam: 02/06/18 Exam# [id number] Ordering Dr: Jered Marte MD STUDY: X-RAY [...] , CC: Doris Navarro DO; Jered Marte Machine Rope Maker: Signed BRAIN/HEAD WITHOUT Observed: 02/06/2018 Status: F Source: [place] CONTRAST 5:56 PM [facility] REPOSITORY [facility] Imaging Services [address] [place] [address] Brain/Head without Contrast MR#: [id number] Acct: [id number] Name: CLIFFORD CRUZMARICRUZ Stuart Rep #: [id number] : 1940 F 77 From: Renata Lee MD PCP: Doris Navarro DO Status: REG ER Study: Brain/Head without Contrast Date of Exam: 02/06/18 Exam# [id number] Ordering Dr: Jered Marte MD STUDY: CT [...] , CC: Doris Navarro DO; Jered Marte Machine Rope Maker: Signed BASIC METABOLIC Collected: 02/06/2018 Status: F [...] By: #### L500.2500, L501.4010 #### [facility] [address] [place], [address] TROPONIN-I Collected: 02/06/2018 Status: F Source: [facility] 5:45 PM [facility] REPOSITORY TYPE CODE TESTS RESULT OUT OF RANGE REFERENCE UNITS LAB L501.4010 <0.045 ng/mL Normal < 0.015 TROPONIN-I Result Comment: TROPONIN-I EXPECTED VALUES <0.045 Negative 0.045 - 0.590 Consistent with Cardiac Damage > OR = 0.600 Critical Value Not every elevated troponin is indicative of AR. These values should be used with clinical judgement in examining the patient's clinical picture for diagnosis. To establish a diagnosis of AR versus myocardial injury, there must be a demonstrated rise and/or fall in the troponin values, in addition to ischemic symptoms, EKG changes, new regional wall motion abnormality, and/or angiographical evidence. PLEASE NOTE: REFERENCE RANGES EDITED 17 Performed By: #### L500.2500, L501.4010 #### [facility] [address] [facility] [place], [address] PROTHROMBIN TIME W/INR Collected: 02/06/2018 Status: F Source: [facility] 5:45 PM [facility] REPOSITORY TYPE CODE TESTS RESULT OUT OF RANGE REFERENCE UNITS LAB L300.4150 11.7-14.9 SECONDS Normal PROTIME 12.5 LAB L300.4200 Normal INR 0.9 Performed By: #### L300.3900, L300.4310 #### [facility] [address] [facility] [place], [address] PARTIAL THROMBOPLAST Collected: 02/06/2018 Status: F Source: [facility] TIME 5:45 PM [facility] REPOSITORY TYPE CODE TESTS RESULT OUT OF RANGE REFERENCE UNITS LAB L300.4310 24.1-36.2 Seconds Normal PTT 33.0 Performed By: #### L300.3900, L300.4310 #### [facility] [address] [facility] [place], [address] CBC W/DIFF, AUTOMATED Collected: 02/06/2018 Status: F Source: [facility] 5:45 PM [facility] REPOSITORY [...] Performed By: #### L100.0100 #### [facility] [address] [facility] [place], [address] LIVER Observed: 11/25/2017 Status: F Source: [facility] 10:35 AM [facility] REPOSITORY [facility] Imaging Services [address] [place] [address] Liver MR#: [id number] Acct: [id number] Name: MARICRUZ GRIGSBY Rep #: [id number] : 1940 F 77 From: Mack Hand MD PCP: Doris Navarro DO Status: REG CLI Study: Liver Date of Exam: 11/25/17 Exam# [id number] Ordering Dr: Doris Navarro DO STUDY: ABDOMINAL [...] Service support , CC: Doris Navarro DO Machine Rope Maker: Signed HIP 2-3 VIEWS WITH Observed: 10/29/2017 Status: F Source: [facility] PELVIS 11:24 AM [facility] REPOSITORY [facility] Imaging Services [address] [place] [address] Hip 2-3 Views with Pelvis MR#: [id number] Acct: [id number] Name: MARICRUZ GRIGSBY Rep #: [id number] : 1940 F 77 From: Benji Finch PCP: Doris Navarro DO Status: REG CLI Study: Hip 2-3 Views with Pelvis Date of Exam: 10/29/17 Exam# [id number] Ordering Dr: Thelma Sofia ELASTIC YARN TWISTER-C STUDY: X-RAY - PELVIS AND LEFT HIP [...] , CC: QUINN Sofia; Doris Navarro DO Machine Rope Maker: Signed 12 LEAD ELECTROCARDIOGRAM Observed: 08/27/2017 Status: F Source: [facility] 10:37 AM [facility] REPOSITORY [facility] Cardiovascular Services [address] [place] [address] 12 Lead EKG 08/24/17 1719 MR#: [id number] Acct: [id number] Name: JOSE AMARICRUZ GIANG Rep #: [id number] : 1940 77 From: Maurilio Rowe MD [...] Normal ECG Confirmed by SOLEDAD STREETER, MAURILIO ([id number]), video tape editor STACY CARTER ([id number]) on 08/27/2017 10:37:34 AM Referred By: EITAN Confirmed By:MAURILIO ROWE MD 08/27/17 1037 Date Maurilio Rowe MD CC: Doris Navarro DO Signed EMERGENCY DEPARTMENT Observed: 08/25/2017 Status: F Source: [facility] SUMMARY 12:01 AM [facility] REPOSITORY [facility] Medical Records Department [address] [place] [address] Emergency Department Summary 08/24/17 1709 MR#: [id number] Acct: [id number] Name: MARICRUZ GRIGSBY Rep #: [id number] : 1940 77 From: Zee Denise MD [...] be altered This note was generated with Appota dictation software. It may contain incorrect words, [...] your Primary Care Provider. Call [facility] ([phone]) or report to the closest Emergency Room. Call 911 if necessary. 08/25/17 0001 <Electronically signed by Zee Denise MD> Date Zee Denise MD Cosigner Signature (If Indicated): Date CC: Doris Navarro DO DISCHARGE INSTRUCTION Observed: 08/24/2017 Status: F Source: [place] 6:21 PM [facility] REPOSITORY [facility] Medical Records Department [address] [place] [address] Discharge Instruction 08/24/17 1820 MR#: [id number] Acct: [id number] Name: MARICRUZ GRIGSBY Rep #: [id number] : 1940 77 From: Zee Denise MD [...] problems, contact your Primary Care Provider. Call [facility] ([phone]) or report to the closest Emergency Room. Call 911 if necessary. 08/24/17 1821 <Electronically signed by Zee Denise MD> Date Zee Denise MD Cosigner Signature (If Indicated): Date CC: Doris Navarro DO CBC W/DIFF, AUTOMATED Collected: 08/24/2017 Status: F Source: [facility] 5:40 PM [facility] REPOSITORY [...] Lymph 1.65 Performed By: #### L100.0100 #### [facility] [address] [place], [address] BASIC METABOLIC Collected: 08/24/2017 Status: F Source[facility] PROFILE ([facility]) 5:40 PM [facility] [...] By: #### L500.2500, L501.4010 #### [facility] [address] [place], [place], [address] TROPONIN-I Collected: 08/24/2017 Status: F Source: [facility] 5:40 PM [facility] REPOSITORY Order Comment: 'TROP' Serial specimen #1, #2, #3, or #4: 1 TYPE CODE TESTS RESULT OUT OF RANGE REFERENCE UNITS LAB L501.4010 <0.06 ng/mL Normal < 0.02 TROPONIN-I Result Comment: TROPONIN-I EXPECTED VALUES <0.05 NEGATIVE 0.06 - 0.59 AT RISK OF AR > OR = 0.60 SUGGEST AR Performed By: #### L500.2500, L501.4010 #### [facility] [address] [place], [place], [address] BNP,B-TYPE NATRIURETIC Collected: 08/24/2017 Status: F Source: [facility] PEPTIDE 5:40 PM [facility] REPOSITORY TYPE CODE TESTS RESULT OUT OF RANGE REFERENCE UNITS LAB L503.6620 0-100 pg/mL Normal B-TYPE 13.3 SANJU PEP Performed By: #### L503.6620 #### [facility] [address] [place], [address] CHEST PA AND LATERAL Observed: 08/24/2017 Status: F Source: [place] 5:10 PM [facility] REPOSITORY [facility] Imaging Services [address] [place] [address] Chest PA and Lateral MR#: [id number] Acct: [id number] Name: MARICRUZ GRIGSBY Rep #: [id number] : 1940 F 77 From: Stacy Tapia MD PCP: Doris Navarro DO Status: REG ER Study: Chest PA and Lateral Date of Exam: 08/24/17 Exam# [id number] Ordering Dr: Zee Denise MD XR Chest [...] CC: MD Sonam Denise; Doris Navarro DO Machine Rope Maker: Signed PROGRESS Observed: 08/24/2017 Status: COMPLETED Source: [facility] 4:49 PM [facility] REPOSITORY HNO ID: [id number] Author: Deya To Service: (none) Author Type: [...] of Onset - Coronary Artery Disease Father AR age 68 - Coronary Artery Disease Mother AR age 70's - Diabetes mother, sister, mat aunt grndm - Stroke TIA's: mother, sister - Lipids Mother Social History Substance Use Topics - Smoking status: Never Smoker - Smokeless tobacco: Never Used - Alcohol use No ASSESSMENT/PLAN: 1. Respiratory distress - ICD9: 786.09, ICD10: R06.03 Referred to ED for further evaluation and management. Pt and refuse transfer via squad. will drive pt to [facility] now. The patient is in [facility] CNOV Observed: 08/24/2017 Status: COMPLETED Source: [place] 3:30 PM [facility] REPOSITORY Office Visit (WSTR) MARICRUZ GRIGSBY ([id number]) 1940 F Date Time Provider Department 08/24/17 3:30 PM [facility] TO [facility] During your visit today, [...] of Onset - Coronary Artery Disease Father AR age 68 - Coronary Artery Disease Mother AR age 70's - Diabetes mother, sister, mat aunt grndm - Stroke TIA's: mother, sister - Lipids Mother Social History Substance Use Topics - Smoking status: Never Smoker - Smokeless tobacco: Never Used - Alcohol use No ASSESSMENT/PLAN: 1. Respiratory distress - ICD9: 786.09, ICD10: R06.03 Referred to ED for further evaluation and management. Pt and refuse transfer via squad. will drive pt to [facility] ED now. The patient is in [facility] Referring Provider: SELF [200] Allergies [...] NAME / CODE REACTION SEVERITY SOURCE Drug Penicillins/[id number] Hives Unknown [place] 8 Allergy/562579073( 476(RXNORM) [facility] Rep[facility] Drug guaifenesin/[id number] Unknown Unknown [facility] Allergy/309278970( 724(RXNORM) [facility] SNOMED CT) Hospital Repository Drug naproxen/C188098311 Hives Unknown [facility] Allergy/526036543( (RXNORM) [facility] SNOMED CT) Hospital Repository Drug ketoprofen/I0806458 Unknown Unknown [place] Allergy/024686391( 94(RXNORM) [facility] SNOMED CT) Hospital Repository Drug loracarbef/S1011642 Unknown Unknown [place] 8 Allergy/459594361( 67(RXNORM) [facility] SNOMED CT) Hospital Repository Miscellaneous bee sting Unknown Unknown [facility] 8 Allergy/578627451( [facility] SNOMED CT) Hospital Repository Drug CEPHALOSPORINS [place] 0 Class/636320389([facility] OMED CT) [place] Repository Drug PENICILLINS [place] 0 Class/292427907([facility] OMED CT) [place] Repository ENCOUNTERS ENCOUNTERS ADMIT/DISCHARGE ACCOUNT ADMITTING ENCOUNTER LOCATION SOURCE NUMBER CLASS 08/15/2018 [id number] Ambulatory Building:[facility] [place] Practices Repository 08/13/2018 [id number] Ambulatory [facility] ing:PT Repository 08/07/2018/08/07/19 [id number] Ambulatory [address] Repository 08/07/2018/08/07/19 [id number] Ambulatory [address] Repository 07/16/2018/07/16/20 [id number] Emergency [address] ing:ED Repository 06/27/2018/06/27/20 [id number] Ambulatory [address] Hospital ing:PT Repository 06/24/2018 [id number] Ambulatory [facility] Hospital ing:HPRAD Repository 05/14/2018/05/14/20 [id number] Emergency [address] Hospital ing:ED Repository 02/10/2018 [id number] Ambulatory [facility] Hospital ing:LAB Repository 02/07/2018/02/08/20 [id number] Ambulatory BMSBuilding:W [place] [facility] Repository 02/06/2018/02/08/20 [id number] [facility] ing:PCURoom: Repository [id number]: 1 02/06/2018 [id number] [facility] BMSBuilding:B [place] Repository 02/06/2018 [id number] Ambulatory BMSBuilding:B [place] Repository 11/25/2017 [id number] Ambulatory [facility] ing:OPUS Repository 11/20/2017 [id number] Ambulatory [facility] ing:MASS Repository 11/12/2017/11/13/19 [id number] Ambulatory [address] ing:PT Repository 10/29/2017 [id number] Ambulatory [facility] ing:HPRAD Repository 08/24/2017/08/24/19 [id number] Emergency [address] ing:ED Repository 08/24/2017/08/24/19 [id number] Ambulatory [address] Repository FUNCTIONAL STATUS FUNCTIONAL STATUS No Functional Status Records FoundEQUIPMENT EQUIPMENT No Equipment Records FoundPAYERS PAYERS ENCOUNTER GUARANTOR PAYER SUBSCRIBER SOURCE 08/15/2018 Maricruz Davidson Primary Maricruz L OHIP Practices [facility] Insurance:[place] Repository B: care Adv planPolicy B: [id number] Number: [id number] [place] [id number] 0 [place], [place] Date:9831-71-40[place], [place] [address]Yqz: (729) Name:[address] [address]Fya: 507[address]Gprdkfh, [place] [phone] (SX) (HP)Tel: [phone]: () [phone] 08/15/2018 Secondary Maricruz L OHIP Practices [facility] Repository icy Number: B: [id number] Date:2017-07-29 [place] 9129-54-29YbypNikolai, [place] Name:[employer] [address] [address]Ygm: [phone], [place] [phone] (MB) [address]EY: 08/13/2018 [facility] Insurance:ANTHEM CURRENDOB: Community [place] [employer] SENIOR [id number] Healthicy Number: Repository [address]Jrp: 330 [id number] [phone] () Date:[id number] [address]AW: 08/13/2018 Secondary NOT GIVENUNK [place] Insurance:SELF PAY [facility] Number: Effective Repository Date:2018-07-31 07/16/2018 FRANTZ E Primary MARICRUZ Borjas [id number] Insurance:MEDICARE CURRENDOB: Community [address] PART [address] [facility] [id number], [place] Number: Repository [address]Ika: 330 [id number] [phone] () Date:2018-07-16 07/16/2018 Secondary NOT GIVENUNK [place] Insurance:SELF PAY [facility] Number: Effective Repository Date:2018-07-16 06/27/2018 [place] Poe Primary MARICRUZ Borjas [id number] Insurance:MEDICARE CURRENDOB: Community [address] [facility] [id number], [place] Number: Repository [address]Sbd: 330 [id number] [phone] () Date:2018-06-24 06/27/2018 Secondary NOT GIVENUNK [place] Insurance:SELF PAY [facility] Number: Effective Repository Date:2018-06-24 06/24/2018 FRANTZ E Primary MARICRUZ Borjas [id number] Insurance:MEDICARE CURRENDOB: Community [address] PART [address] [facility] [id number], [place] Number: Repository [address]Thl: 330 [id number] [phone] () Date:2018-06-24 06/24/2018 Secondary NOT GIVENUNK [place] Insurance:SELF PAY [facility] Number: Effective Repository Date:2018-06-24 05/14/2018 FRANTZ E Primary MARICRUZ Borjas [id number] Insurance:MEDICARE CURRENDOB: Community [place] PART A [facility] [id number] [facility] [place] Number: Repository [address]Erv: 330 [id number] [phone] (HP) Date:2018-05-14 05/14/2018 Secondary NOT GIVENUNK [place] Insurance:SELF PAY [facility] Number: Effective Repository Date:2018-05-14 02/10/2018 FRANTZ Poe Primary MARICRUZ Gutierrezoster [id number] Insurance:MEDICARE CURRENDOB: Community [address] PART A [facility] [id number] [facility] [place] Number: Repository [address]Vxm: 330 [id number] [phone] (HP) Date:2018-02-10 02/10/2018 Secondary NOT GIVENUNK [place] Insurance:SELF PAY [facility] Number: Effective Repository Date:2018-02-10 02/07/2018 FRANTZ E Primary MARICRUZ Gutierrezoster [id number] Insurance:MEDICARE CURRENDOB: Community [place] PART A [facility] [id number] [facility] [place] Number: Repository [address]Cxt: 330 [id number] [phone] () Date:2018-02-06 02/07/2018 Secondary NOT GIVENUNK [place] Insurance:SELF PAY [facility] Number: Effective Repository Date:2018-02-07 02/06/2018 FRANTZ E Primary MARICRUZ [place]oster [id number] Insurance:MEDICARE CURRENDOB: Community [place] PART A [facility] [id number] [facility] [place] Number: Repository [address]Zjb: 330 [id number] [phone] (HP) Date:2018-02-06 02/06/2018 Secondary NOT GIVENUNK [place] Insurance:SELF PAY [facility] Number: Effective Repository Date:2018-02-06 02/06/2018 FRANT[place] E Primary MARICRUZ [place]oster [id number] Insurance:MEDICARE CURRENDOB: Community [place] PART A [facility] [id number] Hospital [place] Number: Repository [address]Svp: 330 [id number] [phone] (HP) Date:2018-02-06 02/06/2018 Secondary NOT GIVENUNK [place] Insurance:SELF PAY [facility] Number: Effective Repository Date:2018-02-06 02/06/2018 FR[place] Poe Primary MARICRUZ Borjas [id number] Insurance:MEDICARE CURRENDOB: Community [place] PART A [facility] [id number] [facility] [place] Number: Repository [address]Njx: 330 [id number] [phone] () Date:2018-02-06 02/06/2018 Secondary NOT GIVENUNK [place] Insurance:SELF PAY [facility] Number: Effective Repository Date:2018-02-06 11/25/2017 FR[place]Z Poe Primary MARICRUZ Borjas [id number] Insurance:MEDICARE CURRENDOB: [facility] [id number] [facility] [place] Number: Repository [address]See: 330 [id number] [phone] () Date:2017-11-22 11/25/2017 Secondary NOT GIVENUNK [place] Insurance:SELF PAY [facility] Number: Effective Repository Date:2017-11-22 11/20/2017 FRANTZ Poe Primary NOT GIVENUNK [place] [id number] Insurance:SELF PAY [facility] [place] Number: Effective Repository [address]Lny: (330) Date:2016-07-24 [phone] () 11/12/2017 FRANTZ E Primary MARICRUZ Borjas [id number] Insurance:MEDICARE CURRENDOB: [facility] [id number] [facility] [place] Number: Repository [address]Pdh: 330 [id number] [phone] () Date:2006-01-26 11/12/2017 Secondary NOT GIVENUNK [place] Insurance:SELF PAY [facility] Number: Effective Repository Date:2017-11-01 10/29/2017 FRANTZ E Primary MARICRUZ Borjas [id number] Insurance:MEDICARE CURRENDOB: [facility] [place] [id number] [place] Number: Repository [address]Xoq: [phone] [id number] () Date:2017-10-29 10/29/2017 Secondary NOT GIVENUNK [place] Insurance:SELF PAY [facility] Number: Effective Repository Date:2017-10-29 08/24/2017 Frantz Hernandez MARICRUZ Borjas [id number] Insurance:MEDICARE CURRENDOB: [facility] PART A BPolicy [id number] Number: Repository [address]Wld: 330 [id number] () Date:2017-08-24 08/24/2017 Secondary NOT GIVENUNK [place] Insurance:SELF PAY [facility] Number: Effective Repository Date:2017-08-24 SOCIAL HISTORY SOCIAL HISTORY No Social History Records FoundFAMILY HISTORY FAMILY HISTORY No Family History Records FoundADVANCE DIRECTIVES ADVANCE DIRECTIVES No Advanced Directives Records FoundINFORMATION SOURCE INFORMATION SOURCE DATE CREATED AUTHOR AUTHOR'S ORGANIZATION 08/24/2018 MICHELLE
== END 2018-08-28 19:00 | disposition home or self-care (01) ==
LOC: PT 11:30
PROVIDERS: Family Provider Internal Medicine; PCP Internal Medicine; Visit Provider Internal Medicine
DX: M54.32 Sciatica, left side (principal); M54.31 Sciatica, right side
CPT/HCPCS: 97110; 97162

== ENCOUNTER 2018-08-31 06:16 | Observation (INO) | payer MEDICARE, SELFPAY ==
[2018-08-31] VITALS (9 sets, daily range): BP systolic 139–209; BP diastolic 66–93; PULSE 78–109; RESP 17–23; TEMP 36.6–37.1; O2SAT 95–100; BMI 33.4; BMI 33.6
--- NOTE | 2018-08-31 06:29 | ED.VISSUMM ---
- ER Visit Summary Date of Service: 08/31/18 Chief Complaint: Nausea, vomiting and diarrhea History of Present Illness: The patient is a 78 F history of prior stroke, [id number]-phiufujgf diabetes and I retention. Patient had a prior appendectomy, cholecystectomy and hysterectomy. States earlier this morning in the last several hours she vomiting and diarrhea. Only mild abdominal cramping. No dysuria. No fever. She denies any hematemesis or melena. Physical Examination: Elderly female no acute distress. Vital signs are stable. She is afebrile. Pulse ox 100% on room air. She does not look septic or toxic. She does appear mildly dehydrated. H EENT exam unremarkable. No signs of trauma. Pupils round reactive light. Dry mucous membranes. Neck nontender no JVD no lymphadenopathy. Lungs clear to auscultation bilaterally. Heart regular rate and rhythm rate about 80. Abdomen is soft. Nontender. Normal bowel sounds. No peritoneal signs. No localizing tenderness. No hernias or masses. No signs of obstruction. No distention. Extremities moving all 4. Neurovascularly intact. Calves nontender without edema. Back nontender. Skin unremarkable. Neurologically she is awake and alert with no focal motor deficits. Test Results: BMP shows no acute abnormality. Gap of 14. Creatinine is 1.49 which is her baseline. Emergency Department Course and Treatment: Patient's history and exam are consistent with a viral gastroenteritis. Also mild dehydration. She will be treated with IV Zofran. A liter normal saline. And a p.o. fluid challenge. On repeat exam at 07:02 AM patient still nauseated she will be given a second dose of Zofran and checked out to the a.m. physician. Treatment Plan: Zofran home pack. As needed for nausea. Plenty of fluids and rest. Follow-up with your doctor if not improving or return to ER feeling worse. Disposition: Discharge Impression: Acute nausea, vomiting and diarrhea second viral gastroenteritis Acute dehydration History of klp-tfuvfuj-xszdtrezp diabetes This note was generated with [employer] dictation software. It may contain incorrect words, spelling, and punctuation that were not noted in review of the chart prior to signing ED Disposition - Plan for ED Patient: Disposition: Home or Assisted Living Instructions: ED Gastroenteritis Viral Prescriptions: Ondansetron [Zofran Odt] 4 mg PO Q8H PRN PRN #10 tab PRN Reason: Nausea Referrals: Doris Navarro, [Primary Care Provider] - 3-5 Days if not improving Additional Instructions: Plenty of fluids and rest. Increase diet slowly as tolerated. Zofran as needed for nausea and vomiting. You may swallow it or if too sick to swallow the pill dissolved underneath her tongue. Follow-up with your doctor if not improving or return to the ER if worse.
--- NOTE | 2018-08-31 06:32 | ED.DCSUM_ITS ---
- ER Visit Summary Date of Service: 08/31/18 Chief Complaint: Nausea, vomiting and diarrhea History of Present Illness: The patient is a 78 F history of prior stroke, gvc-pxcseiz-rycpbntds diabetes and I retention. Patient had a prior appendectomy, cholecystectomy and hysterectomy. States earlier this morning in the last several hours she vomiting and diarrhea. Only mild abdominal cramping. No dysuria. No fever. She denies any hematemesis or melena. Physical Examination: Elderly female no acute distress. Vital signs are stable. She is afebrile. Pulse ox 100% on room air. She does not look septic or toxic. She does appear mildly dehydrated. H EENT exam unremarkable. No signs of trauma. Pupils round reactive light. Dry mucous membranes. Neck nontender no JVD no lymphadenopathy. Lungs clear to auscultation bilaterally. Heart regular rate and rhythm rate about 80. Abdomen is soft. Nontender. Normal bowel sounds. No peritoneal signs. No localizing tenderness. No hernias or masses. No signs of obstruction. No distention. Extremities moving all 4. N eurovascularly intact. Calves nontender without edema. Back nontender. Skin unremarkable. Neurologically she is awake and alert with no focal motor deficits. Test Results: BMP shows no acute abnormality. Gap of 14. Creatinine is 1.49 which is her baseline. Emergency Department Course and Treatment: Patient's history and exam are consistent with a viral gastroenteritis. Also mild dehydration. She will be treated with IV Zofran. A liter normal saline. And a p.o. fluid challenge. On repeat exam at 07:02 AM patient still nauseated she will be given a second dose of Zofran and checked out to the a.m. physician. Treatment Plan: Zofran home pack. As needed for nausea. Plenty of fluids and rest. Follow-up with your doctor if not improving or return to ER feeling worse. Disposition: Discharge Impression: Acute nausea, vomiting and diarrhea second viral gastroenteritis Acute dehydration History of ebq-apzqtoa-adevdjvwv diabetes This note was generated with [employer] dictation software. It may contain incorrect words, spelling, and punctuation that were not noted in review of the chart prior to signing ED Disposition - Plan for ED Patient: Disposition: Home or Assisted Living Instructions: ED Gastroenteritis Viral Prescriptions: Ondansetron [Zofran Odt] 4 mg PO Q8H PRN PRN #10 tab PRN Reason: Nausea Referrals: Doris Navarro, [Primary Care Provider] - 3-5 Days if not improving Additional Instructions: Plenty of fluids and rest. Increase diet slowly as tolerated. Zofran as needed for nausea and vomiting. You may swallow it or if too sick to swallow the pill dissolved underneath her tongue. Follow-up with your doctor if not improving or return to the ER if worse.
--- NOTE | 2018-08-31 06:35 | DCINST.ED_ITS ---
ED Disposition - Plan for ED Patient: Disposition: Home or Assisted Living Instructions: ED Gastroenteritis Viral Prescriptions: Ondansetron [Zofran Odt] 4 mg PO Q8H PRN PRN #10 tab PRN Reason: Nausea Referrals: Doris Navarro DO [Primary Care Provider] - 3-5 Days if not improving Additional Instructions: Plenty of fluids and rest. Increase diet slowly as tolerated. Zofran as needed for nausea and vomiting. You may swallow it or if too sick to swallow the pill dissolved underneath her tongue. Follow-up with your doctor if not improving or return to the ER if worse.
[2018-08-31] MEDS: 0.9% Normal Saline 1,000 ML 1000 ML IV (06:39)
[2018-08-31] MEDS: Ondansetron 4 MG/2 ML Vial IV ×3 (06:39→08:35)
[2018-08-31 06:56] LABS: Anion Gap 14 (5-15); BUN 26 mg/dL (7-18); BUN/Creat Ratio 17.4 RATIO (10-20); Calcium,Total 9.7 mg/dL (8.5-10.1); Chloride 103 mmol/L (98-107); Creatinine, Serum 1.49 mg/dL (0.55-1.02); EST Glomerular Filtration Rate 36 mL/min (>60); Est Glom Filt Rate - Afr Amer 44 mL/min (>60); Estimated Creatinine Clearance 28.45 ml/min; Glucose 216 mg/dL (74-106); Sodium Level 140 mmol/L (136-145)
[2018-08-31] MEDS: Ondansetron ODT 4 MG Tablet PO (07:20)
[2018-08-31] MEDS: proMETHazine 25 MG/ML Syringe 6.25 MG IV (07:45)
--- NOTE | 2018-08-31 08:32 | CT_ITS ---
STUDY: CT ABDOMEN AND PELVIS WITHOUT CONTRAST REASON FOR EXAM: Female, 78 years old. Vomiting RADIATION DOSAGE (If Supplied By Facility): CTDIvol = ( 17.02 ) mGy, DLP = ( 1328.33 ) mGycm TECHNIQUE: Transaxial images were obtained from the dome of the diaphragm to the symphysis pubis without oral contrast, and without intravenous contrast. Sagittal and coronal images were reconstructed. Individualized dose optimization techniques were used for this CT. COMPARISON: March 03, 2017. FINDINGS: There are scattered small pulmonary calcifications consistent with old granulomatous disease. There are mitral annular calcifications. There is hepatomegaly with diffuse hepatic enlargement. There is non-visualization of the gallbladder, which may be secondary to either contraction or a prior cholecystectomy. There are multiple benign calcified granulomata of the liver and spleen. Normal pancreas. Normal bilateral adrenal glands. Parapelvic cysts of the right kidney. Parapelvic cysts of the left kidney. There is a small hiatal hernia. Normal small intestine. Normal colon. The appendix is visualized and appears normal. There is atherosclerotic calcification of the abdominal aorta, without a demonstrated aneurysm. Normal inferior vena cava. Normal retroperitoneum. Normal urinary bladder. There is absence of the uterus consistent with a prior hysterectomy. There is no free fluid in the abdomen or pelvis. Normal abdominal wall. There are diffuse degenerative changes of the visualized lumbar spine. CT/Abdomen/Pelvis without Cont IMPRESSION: Small hiatal hernia. No obstruction. Hepatomegaly. Old granulomatous disease. Electronically Signed: Garry Morrissey MD at 9:31 EST , Service support ,
[2018-08-31] MEDS: 0.9% Normal Saline 1,000 ML 999 ML IV (08:35)
[2018-08-31 09:01] LABS: Absolute Lymphocyte Count 1.63 X10^3/ul (0.83-4.51); Absolute Neutrophil Count 7.5 X10^3/uL (2.0-7.7); Basophil# 0.03 X10^3/uL; Basophil% 0.3 % (0-1); Eosinophil# 0.09 X10^3/uL; Eosinophils% 0.9 % (0-5); Hematocrit 39.3 % (37-47); Hemoglobin 12.9 g/dl (12.0-15.0); Lymphocyte # 1.63 X10^3/ul (4.0); Lymphocyte % 16.8 % (19-41); Mean Corp Hgb Conc 32.8 g/gl (32-36); Mean Corpuscular Hgb 29.1 pg (27.0-32.0); Mean Corpuscular Volume 88.5 fL (81-99); Monocyte# 0.52 X10^3/uL; Monocyte% 5.3 % (0-10); Neutrophil # 7.45 X10^3/uL (2.7-7.7); Neutrophil % 76.6 % (47-70); POSITIVE COUNT NO; POSITIVE DIFFERENTIAL NO; POSITIVE MORPHOLOGY NO; Platelet Count 286 K/mm3 (150-450); RBC Distribution Width CV 14.8 % (11.6-14.6); RBC Distribution Width SD 47.5 fl (35.1-43.9); Red Blood Count 4.44 M/mm3 (4.2-5.4); White Blood Count 9.7 K/mm3 (4.4-11.0)
[2018-08-31 09:19] LABS: Bacteria 0 SEEN /hpf (None Seen); Mucous, Urine 0 SEEN /hpf (<or=2+); Red Blood Cells-Urine 0 SEEN /hpf (0-5)
[2018-08-31 09:24] LABS: Lipase 133 U/L (73-393)
[2018-08-31 09:29] LABS: AST(SGOT) 25 U/L (15-37); Alanine Aminotransfer ALT/SGPT 27 U/L (13-56); Albumin, Serum 4.1 g/dL (3.2-5.0); Alkaline Phosphatase 96 U/L (45-117); Bilirubin, Direct 0.12 mg/dL (0.00-0.30); Protein, Total 8.1 g/dL (6.4-8.2)
[2018-08-31 09:32] LABS: Color, Urine Yellow (Yellow); Glucose, Dipstick 1000 mg/dl (Normal); Ketone-Dipstick 15 mg/dl (Negative); Leukocyte Esterase-Dipstick 100 /ul (Negative); Nitrite-Dipstick Negative (Negative); Occult Blood-Urine 10 /ul (Negative); Protein-Dipstick 30 mg/dl (Negative); Urine Bilirubin Dipstick Negative (Negative); Urine Clarity Sl. Cloudy (Clear); Urine Urobilinogen Normal (Normal)
[2018-08-31 09:38] LABS: White Blood Cells 0-5 SEEN /hpf (0-5)
[2018-08-31 09:39] LABS: Squamous Epithelial Cells - UA 0-5 SEEN /hpf (5-10); Transitional Epithelial - Ur 0-5 SEEN /hpf (0-5)
--- NOTE | 2018-08-31 10:44 | PCM.HP.STD ---
Problem List (1) Acute gastroenteritis Status: Acute (2) CKD (chronic kidney disease) stage 3, GFR 30-59 ml/min Status: Chronic (3) CVA (cerebral vascular accident) Status: Chronic Qualifiers: CVA mechanism: unspecified Qualified Code(s): I63.9 - Cerebral infarction, unspecified (4) Esophageal reflux Status: Chronic Qualifiers: Esophagitis presence: esophagitis presence not specified Qualified Code(s): K21.9 - Gastro-esophageal reflux disease without esophagitis (5) Hypertension Status: Chronic Qualifiers: Hypertension type: essential hypertension Qualified Code(s): I10 - Essential (primary) hypertension (6) Hypothyroidism Status: Chronic Qualifiers: Hypothyroidism type: unspecified Qualified Code(s): E03.9 - Hypothyroidism, unspecified (7) Obesity Status: Chronic Qualifiers: Obesity type: due to excess calories Obesity classification: adult class 1 (BMI 30 - 34.9) (8) Type 2 diabetes mellitus Status: Chronic Qualifiers: 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: without 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 Diabetes mellitus complication status: with unspecified complications Qualified Code(s): E11.8 - Type 2 diabetes mellitus with unspecified complications History of Present Illness Date of Admission: 08/31/18 Chief Complaint: Intractable nausea, emesis The patient is a 78 y/o F w/ PMHx: History of prior CVA, HTN, HLD, Obesity, GERD, Anxiety and Depression, CKD stage III, Hypothyroidism, CORRINA not using CPAP q HS, Diabetes mellitus type II who presents to the [facility] ED on 08/31/18 with history of general malaise, fatigue starting 08/30/18 with then sudden onset intractable nausea and emesis starting at ~2 am on day of ED presentation. In the ED patient requesting her AM medications as as she has not had these and as a result has notably elevated blood pressures and is also anxious requesting her anxiolytic regimen. In the ED workup included T 98, heart rate 82, BP initially 180/3, respiratory rate 18, 100% on room air--> BP increased to 209/89 but again she has not taken any of her medications and also anxious secondary to not having had her a.m. anxiolytic regimen, CBC with WBC 9.7, hgb 12.9, platelet 286 w/ mild left shift, CMP with BUN/Cr 26/1.49 (baseline 1.4), UA w/ protein 30, glucose 1000, ketones 15, occult blood 10, leukocyte esterase 100, no RBC, no WBC, no urine bacteria noted, UCx pending, CT A/P with small hiatal hernia, no evidence of obstruction, hepatomegaly, old granulomatous disease with no acute findings. In the ED patient given several rounds of Zofran and normal saline in addition to Phenergan IV x1 with no improvement. Past Medical History Past Medical History (Chronic Problems): Chronic Problems CKD (chronic kidney disease) stage 3, GFR 30-59 ml/min (Chronic) Esophageal reflux (Chronic) History of pancreatitis (Chronic) History of abdominal pain (Chronic) Type 2 diabetes mellitus (Chronic) Obesity (Chronic) Hypothyroidism (Chronic) CVA (cerebral vascular accident) (Chronic) Hypertension (Chronic) Allergies naproxen [From Naprosyn] Allergy (Verified 08/31/18 07:12) Hives Penicillins [PCN] Allergy (Verified 08/31/18 07:12) Hives guaifenesin [From Mucinex] Adverse Reaction (Verified 08/31/18 07:12) Unknown ketoprofen Adverse Reaction (Verified 08/31/18 07:12) Unknown loracarbef [From Lorabid] Adverse Reaction (Verified 08/31/18 07:12) Unknown bee sting Adverse Reaction (Uncoded 08/31/18 07:12) Unknown Home Medications: Ambulatory Orders Medication Instructions Recorded Alprazolam 0.05 mg PO BID PRN 08/09/13 Amlodipine Besylate 5 mg PO DAILY 08/09/13 Celecoxib [Celebrex] 100 mg PO DAILY 08/09/13 Citalopram Hydrobromide 40 mg PO DAILY 08/09/13 [Citalopram HBr] Clopidogrel Bisulfate [Clopidogrel] 75 mg PO DAILY 08/09/13 Hydrochlorothiazide 25 mg PO DAILY 08/09/13 Metformin HCl [Metformin HCl ER] 500 mg PO BREAKFAST 08/09/13 Metoprolol Tartrate [Lopressor 100 mg PO DAILY 08/09/13 (beta mert)] Omeprazole 20 mg PO DAILY 08/09/13 Losartan Potassium [Cozaar] 50 mg PO BID 10/22/16 Levothyroxine [Synthroid] 200 mcg PO DAILY 02/06/18 Ondansetron [Zofran Odt] 4 mg PO Q8H PRN PRN #7 tab 07/16/18 Rosuvastatin Calcium 5 mg PO DAILY 07/16/18 Ondansetron [Zofran Odt] 4 mg PO Q8H PRN PRN #10 tab 08/31/18 Surgical History: - - Appendectomy, cholecystectomy, tonsillectomy, hysterectomy. 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 Denies: Chills, Fever, Weight Change HEENT: Denies: Head Aches, Sinus Congestion, Sinus Drainage Cardiovascular: Denies: Chest Pain, Palpitations Respiratory: Denies: Cough, Shortness of breath at rest, Sputum production Gastrointestinal: Reports: Constipation, Nausea, Vomiting. Denies: Abdominal Pain Genitourinary: Denies: Dysuria Musculoskeletal: Reports: Joint Pain. Denies: Joint Tenderness Skin: Denies: Rash, Wounds Neurological: Denies: Numbness, Tingling, Focal weakness Psychiatric: Reports: Anxiety, Depression. Denies: Homicidal Ideations, Suicidal Ideations Hematologic/ Lymphatic: Denies: Easy Bruising, Easy Bleeding VTE Information - Inpt Only VTE Present on Admission: No VTE Mechan Device Prophylaxis: SCD's VTE Pharm Prophylaxis ordered?: Yes Patient Problems: Active and Suspected Problems Acute gastroenteritis (Acute) Subjective: Seated upright in the ED bedside chair, fatigued, anxious appearing, notes decreased nausea currently. Objective: Physical Examination: General: awake, alert, oriented x 3 and cooperative, seated upright in the ED bedside chair, anxious appearing, notes missed AM problem, no acute distress currently otherwise denies market nausea at evaluation. Skin: normal color, turgor, no icterus, cyanosis. HEENT: AT/NC, EOMI, PERRLA, dry MM, no carotid bruits or JVD noted. Lungs: Diminished BS BL bases, moderate effort, no rales, ronchi or wheezing. Heart: Regular rate and rhythm; no gallop, rub audible. Abdomen: soft, obese, NTTP, ND, normal BS, no HSM able to be detected likely secondary to habitus. Extremities: no cyanosis, clubbing, or edema. Neurological: patient awake, alert, oriented x 3; cognitive function intact; pupils equally reactive to light and accomodation; cranial nerves II-XII grossly normal, moving all 4 extremities, no focal deficits, strength moderately to severely globally decreased secondary to acute presentation. Psychiatric: affect appears fatigued, no acute evidence of depressive or anxiety feelings. - Physical Exam Vital Signs Temp Pulse Resp BP Pulse Ox 98 F 78 18 209/89 H 99 08/31/18 06:17 08/31/18 10:23 08/31/18 10:23 08/31/18 10:23 08/31/18 10:23 Oxygen Delivery Method Room Air Weight: 201 lb 0.985 oz Body Mass Index (BMI) 33.4 Finger Stick Blood Glucose 152 Laboratory Tests Past 24 Hrs 08/31/18 08/31/18 08/31/18 06:20 06:20 06:20 WBC 9.7 RBC 4.44 Hgb 12.9 Hct 39.3 MCV 88.5 MCH 29.1 MCHC 32.8 RDW 14.8 H RDW Differential 47.5 H Plt Count 286 MPV 10.0 Immature Gran % (Auto) 0.100 Neut % (Auto) 76.6 H Lymph % (Auto) 16.8 L Motley % (Auto) 5.3 Eos % (Auto) 0.9 Baso % (Auto) 0.3 Absolute Neuts (auto) 7.5 Absolute Lymphs (auto) 1.63 Total Counted Not Reportable Sodium 140 Potassium 4.0 Chloride 103 Carbon Dioxide 23.0 Anion Gap 14 BUN 26 H Creatinine 1.49 H Estim Creat Clear Calc 28.45 Est GFR (MDRD) Af Amer 44 L Est GFR (MDRD) Non-Af 36 L BUN/Creatinine Ratio 17.4 Glucose 216 H Calcium 9.7 Total Bilirubin 0.80 Direct Bilirubin 0.12 AST 25 ALT 27 Alkaline Phosphatase 96 Total Protein 8.1 Albumin 4.1 Globulin 4.0 Lipase Urine Color Urine Clarity Urine pH Ur Specific Boyd Urine Protein Urine Glucose (UA) Urine Ketones Urine Occult Blood Urine Nitrite Urine Bilirubin Urine Urobilinogen Ur Leukocyte Esterase Urine RBC Urine WBC Ur Squamous Epith Cells Ur Transition Epith Cell Urine Bacteria Urine Mucus 08/31/18 08/31/18 06:20 09:12 WBC RBC Hgb Hct MCV MCH MCHC RDW RDW Differential Plt Count MPV Immature Gran % (Auto) Neut % (Auto) Lymph % (Auto) Motley % (Auto) Eos % (Auto) Baso % (Auto) Absolute Neuts (auto) Absolute Lymphs (auto) Total Counted Sodium Potassium Chloride Carbon Dioxide Anion Gap BUN Creatinine Estim Creat Clear Calc Est GFR (MDRD) Af Amer Est GFR (MDRD) Non-Af BUN/Creatinine Ratio Glucose Calcium Total Bilirubin Direct Bilirubin AST ALT Alkaline Phosphatase Total Protein Albumin Globulin Lipase 133 Urine Color Yellow Urine Clarity Sl. Cloudy Urine pH 8.0 Ur Specific Boyd 1.010 Urine Protein 30 H Urine Glucose (UA) 1000 H Urine Ketones 15 H Urine Occult Blood 10 H Urine Nitrite Negative Urine Bilirubin Negative Urine Urobilinogen Normal Ur Leukocyte Esterase 100 H Urine RBC 0 SEEN Urine WBC 0-5 SEEN Ur Squamous Epith Cells 0-5 SEEN Ur Transition Epith Cell 0-5 SEEN Urine Bacteria 0 SEEN Urine Mucus 0 SEEN Assessment/Plan All Active Problems Acute gastroenteritis (Acute) The patient is a 78 y/o F w/ PMHx: History of prior CVA, HTN, HLD, Obesity, GERD, Anxiety and Depression, CKD stage III, Hypothyroidism, CORRINA not using CPAP q HS, Diabetes mellitus type II who presents to the [facility] ED on 08/31/18 with history of general malaise, fatigue starting 08/30/18 with then sudden onset intractable nausea and emesis starting at ~2 am on day of ED presentation. (1) N/V, Suspected Acute Viral Gastroenteritis: ED workup included T 98, heart rate 82, BP initially 180/3, respiratory rate 18, 100% on room air, CBC with WBC 9.7, hgb 12.9, platelet 286 w/ mild left shift, CMP with BUN/Cr 26/1.49 (baseline 1.4), UA w/ protein 30, glucose 1000, ketones 15, occult blood 10, leukocyte esterase 100, no RBC, no WBC, no urine bacteria noted, UCx pending, CT A/P with small hiatal hernia, no evidence of obstruction, hepatomegaly, old granulomatous disease with no acute findings. Will admit to [facility], continue aggressive hydration, suspected viral gastroenteritis with unremarkable imaging, no indication to start antibiotics at this time, continue anti-emetics, pain regimen PRN. Allow clears, ADAT to ADA 1800 if improving. Will attempt to administer AM medications. (2) Hypertension, Elevated: Notably elevated BP in the ED, missed her AM regimen, will dose for this AM and requested hydralazine 10 mg IV x 1 in the ED. Will continue home regimen including Norvasc, losartan, metoprolol, hold hydrochlorothiazide while attempting to hydrate, restart once improved, PRN hydralazine. (3) Hyperlipidemia: Continue home statin regimen. (4) History CVA: Continue home regimen Plavix, BP regimen as noted, statin therapy, encourage lifestyle and diet changes in addition to continued diabetic regimen for improved blood sugar control. (5) Diabetes mellitus type II: Hold oral home regimen, clears initially and continue ADAT to ADA diet, accu checks w/ ISS. (6) Anxiety and Depression: Continue home regimen PRN alprazolam in addition to home citalopram regimen. Given missed dose notable anxiety in the ED requested IV 0.5 mg Ativan x1. (7) Chronic Kidney Disease Stage III: Admission BUN/Cr 26/1.49, baseline renal function 1.2-1.4, repeat BMP in AM. (8) Hypothyroidism: Continue home synthroid regimen. (9) Obesity: Weight loss and lifestyle changes encouraged. (10) CORRINA: Does not use CPAP q HS. (11) GERD: PPI. (12) DVT Prophylaxis: SCDs, heparin. Code Visit OBSV E&M: 96664 Initial observation care L3
[2018-08-31] MEDS: LORazepam 2 MG/ML Syringe 0.5 MG IV (11:42)
[2018-08-31] MEDS: hydrALAZINE 20 MG/ML Vial 10 MG IV (11:42)
[2018-08-31 12:51] LABS: Bedside Glucose 175 mg/dL (70-110)
[2018-08-31 12:56] LABS: Magnesium 1.6 mg/dL (1.6-2.6)
[2018-08-31] MEDS: 0.9% Normal Saline 1,000 ML 100 ML IV (14:00)
[2018-08-31] MEDS: Losartan Potassium 50 MG Tablet PO (15:44)
[2018-08-31] MEDS: Metoprolol(XL)Succ 100 MG Tablet PO (15:44)
[2018-08-31] MEDS: Pantoprazole Sodium 20 MG Tablet PO ×2 (15:45→21:14)
[2018-08-31 15:51] LABS: Bedside Glucose 154 mg/dL (70-110)
[2018-08-31] MEDS: busPIRone 5 MG Tablet 20 MG PO (19:37)
[2018-08-31] MEDS: traZODone 50 MG Tablet 150 MG PO (21:14)
[2018-08-31] MEDS: Atorvastatin Calcium 10 MG Tablet PO (21:14)
[2018-08-31] MEDS: Heparin Injection (Vial) 5,000 UNIT/ML VIAL 5000 UNIT SC (21:15)
[2018-08-31 21:51] LABS: Bedside Glucose 140 mg/dL (70-110)
[2018-08-31] MEDS: Magnesium Hydroxide 30 ML UDC PO (22:14)
[2018-09-01] MEDS: 0.9% Normal Saline 1,000 ML 100 ML IV (00:23)
[2018-09-01 03:19] VITALS: BP 158/89; PULSE 85; RESP 18; TEMP 36.4; O2SAT 97
[2018-09-01] MEDS: Levothyroxine 100 MCG Tablet 200 MCG PO (05:09)
[2018-09-01 06:08] LABS: Anion Gap 12 (5-15); BUN 13 mg/dL (7-18); BUN/Creat Ratio 12.3 RATIO (10-20); Calcium,Total 8.6 mg/dL (8.5-10.1); Chloride 107 mmol/L (98-107); Creatinine, Serum 1.06 mg/dL (0.55-1.02); EST Glomerular Filtration Rate 53 mL/min (>60); Est Glom Filt Rate - Afr Amer 65 mL/min (>60); Estimated Creatinine Clearance 39.99 ml/min; Glucose 152 mg/dL (74-106); Potassium 3.6 mmol/L (3.5-5.1); Sodium Level 139 mmol/L (136-145)
[2018-09-01 06:42] LABS: Absolute Lymphocyte Count 1.45 X10^3/ul (0.83-4.51); Absolute Neutrophil Count 6.8 X10^3/uL (2.0-7.7); Basophil# 0.03 X10^3/uL; Basophil% 0.3 % (0-1); Eosinophil# 0.02 X10^3/uL; Eosinophils% 0.2 % (0-5); Hematocrit 36.5 % (37-47); Hemoglobin 11.7 g/dl (12.0-15.0); Lymphocyte # 1.45 X10^3/ul (4.0); Lymphocyte % 16.5 % (19-41); Mean Corp Hgb Conc 32.1 g/gl (32-36); Mean Corpuscular Hgb 28.7 pg (27.0-32.0); Mean Corpuscular Volume 89.7 fL (81-99); Mean Platelet Vol. 9.7 fl (6.2-12.0); Monocyte# 0.41 X10^3/uL; Monocyte% 4.7 % (0-10); Neutrophil # 6.84 X10^3/uL (2.7-7.7); Platelet Count 261 K/mm3 (150-450); RBC Distribution Width CV 14.8 % (11.6-14.6); RBC Distribution Width SD 47.9 fl (35.1-43.9); Red Blood Count 4.07 M/mm3 (4.2-5.4); White Blood Count 8.8 K/mm3 (4.4-11.0)
[2018-09-01 06:46] LABS: POSITIVE COUNT NO; POSITIVE DIFFERENTIAL NO; POSITIVE MORPHOLOGY NO
[2018-09-01 07:06] LABS: Bedside Glucose 143 mg/dL (70-110)
[2018-09-01] MEDS: Acetaminophen 325 MG Tablet 650 MG PO (07:12)
[2018-09-01 07:44] VITALS: BP 127/69; PULSE 78; RESP 18; TEMP 36.8; O2SAT 98
[2018-09-01] MEDS: busPIRone 5 MG Tablet 20 MG PO (09:58)
[2018-09-01] MEDS: Losartan Potassium 100 MG Tablet PO (09:59)
[2018-09-01] MEDS: Citalopram 40 MG TABLET PO (09:59)
[2018-09-01] MEDS: Clopidogrel Bisulfate 75 MG Tablet PO (10:00)
[2018-09-01] MEDS: amLODIPine 5 MG Tablet PO (10:00)
[2018-09-01] MEDS: Heparin Injection (Vial) 5,000 UNIT/ML VIAL 5000 UNIT SC (10:00)
[2018-09-01 10:01] VITALS: BP 127/69; PULSE 78
[2018-09-01] MEDS: Metoprolol(XL)Succ 100 MG Tablet PO (10:01)
[2018-09-01] MEDS: Pantoprazole Sodium 20 MG Tablet PO (10:01)
--- NOTE | 2018-09-01 10:59 | DCINST_ITS ---
- Discharge Diagnoses Current Active Problems: Current Active and Chronic Problems Acute gastroenteritis (Acute) You will use the following diet at home:: Calorie/Carbohydrate Controlled (specify 1200, 1400, etc) Discharge Activity: Return to Normal Activity Call your doctor if you observe: Shortness of breath, Dizziness, Fainting spells, Chest pain Instructions: ED Gastroenteritis Viral Allergies/Adverse Reactions: Allergies naproxen [From Naprosyn] Allergy (Verified 08/31/18 07:12) Hives Penicillins [PCN] Allergy (Verified 08/31/18 07:12) Hives guaifenesin [From Mucinex] Adverse Reaction (Verified 08/31/18 07:12) Unknown ketoprofen Adverse Reaction (Verified 08/31/18 07:12) Unknown loracarbef [From Lorabid] Adverse Reaction (Verified 08/31/18 07:12) Unknown bee sting Adverse Reaction (Uncoded 08/31/18 07:12) Unknown Medications to take at Discharge Amlodipine Besylate 5 mg PO DAILY 08/09/13 Citalopram Hydrobromide [Citalopram HBr] 40 mg PO DAILY 08/09/13 Clopidogrel Bisulfate [Clopidogrel] 75 mg PO DAILY 08/09/13 Hydrochlorothiazide 25 mg PO DAILY 08/09/13 Metformin HCl [Metformin HCl ER] 1,000 mg PO BID 08/09/13 Metoprolol Tartrate [Lopressor (beta mert)] 100 mg PO DAILY 08/09/13 Omeprazole 20 mg PO DAILY 08/09/13 Losartan Potassium [Cozaar] 100 mg PO DAILY 10/22/16 Levothyroxine [Synthroid] 200 mcg PO DAILY 02/06/18 Ondansetron [Zofran Odt] 4 mg PO Q8H PRN PRN #7 tab 07/16/18 Rosuvastatin Calcium 5 mg PO DAILY 07/16/18 Buspirone HCl 20 mg PO BID 08/31/18 Liothyronine Sodium 2.5 mcg PO DAILY 08/31/18 Ondansetron [Zofran Odt] 4 mg PO Q8H PRN PRN #10 tab 08/31/18 Trazodone HCl 150 mg PO QHS 08/31/18 traMADol [Ultram] 100 mg PO BID PRN PRN 08/31/18 The following prescriptions were given: Ondansetron [Zofran Odt] 4 mg PO Q8H PRN PRN #10 tab PRN Reason: Nausea Primary Care Physician: Doris Navarro DO [Primary Care Provider] - 3-5 Days if not improving Please follow up with your Primary Care Physician in: 1 Week Test Results: Test results from this visit will be discussed in further detail at your follow- up appointment, if applicable. Proposed Discharge Date: 09/01/18
--- NOTE | 2018-09-01 11:00 | PCM.DC.SUM ---
Discharge Date and Diagnosis Date of Admission: 08/31/18 Date of Discharge: 09/01/18 - Primary Discharge Diagnosis Active and Suspected Problems 1. Acute gastroenteritis, suspected viral 2. Hypertension 3. Hyperlipidemia 4. History of CVA 5. Type 2 diabetes mellitus 6. Anxiety/depression 7. Chronic kidney disease stage III 8. Hypothyroidism 9. Obesity 10. CORRINA 11. GERD - Secondary Discharge Diagnosis Chronic Problems CKD (chronic kidney disease) stage 3, GFR 30-59 ml/min (Chronic) Esophageal reflux (Chronic) History of pancreatitis (Chronic) History of abdominal pain (Chronic) Type 2 diabetes mellitus (Chronic) Obesity (Chronic) Hypothyroidism (Chronic) CVA (cerebral vascular accident) (Chronic) Hypertension (Chronic) Hospital Course and Treatment Imaging Results: Diagnostic Data Abdomen/Pelvis CT 08/31/18 08:32 IMPRESSION: Small hiatal hernia. No obstruction. Hepatomegaly. Old granulomatous disease. Electronically Signed: Garry Morrissey MD at 9:31 EST , Service support , Operations: None Procedures: None Summary of Care Provided: The patient is a 78 year old F admitted 08/31/18 due to intractable nausea, emesis. She has a past medical history of CVA, hypertension, hyperlipidemia, obesity, GERD, anxiety, depression, chronic kidney disease stage III, hypothyroidism, CORRINA, type [address] of abdomen and pelvis with no obstruction or acute process. Lab work unremarkable. No UA symptoms. Urine culture with mixed gram-positive organisms, contaminant. Suspect acute viral gastroenteritis. Symptoms have resolved and patient tolerated diet prior to discharge. She denies further nausea, emesis. Denies abdominal pain, diarrhea. Chronic medical conditions as noted above are stable at this time. Patient is noted to have abnormal thyroid panel in the past, recommend continued follow-up with primary care physician regarding this. General: Alert, Oriented x3, Cooperative HEENT: Atraumatic, PERRLA, EOMI, Normocephalic Neck: Supple, No JVD, Negative Carotid Bruits Lungs: Clear to auscultation, Normal air movement Cardiovascular: Regular rate, Regular Rhythm, Normal S1, Normal S2, No murmurs Abdomen: Bowel Sounds Present, Soft, Non Tender, Non-Distended Extremities: No clubbing, No cyanosis, No edema, Capillary Refill Less than 3 Seconds Skin: No rashes, No breakdown Musculoskeletal: No Tenderness to Palpation of Joints or Extremities Neurological: Cranial nerves II-XII grossly intact, Neuro grossly intact Psych/Mental Status: Normal Affect, Appropriate Patient seen and examined prior to discharge. Physical assessment as noted above. Patient is stable for discharge with follow up recommendations as noted above. This patient was seen by QUINN Cabrera under the supervision of Dr. Messina. - Physical Exam Vital Signs Temp Pulse Resp BP Pulse Ox 98.3 F 78 18 127/69 H 98 09/01/18 07:44 09/01/18 10:01 09/01/18 07:44 09/01/18 10:01 09/01/18 07:44 Oxygen Delivery Method Room Air Weight: 202 lb 2.622 oz Body Mass Index (BMI) 33.6 Finger Stick Blood Glucose 152 Intake and Output for Last 24 Hours 08/30/18 08/31/18 09/01/18 23:59 23:59 23:59 Intake Total 1392 / 1392 1030 / 1030 Balance 1392 / 1392 1030 / 1030 Microbiology Past 72 Hours 08/31/18 09:12 Urine Culture - Final Urine, Clean Catch Mixed Gram Positive Organisms Laboratory Tests Past 24 Hrs 08/31/18 09/01/18 09/01/18 06:20 05:20 05:20 WBC 8.8 RBC 4.07 L Hgb 11.7 L Hct 36.5 L MCV 89.7 MCH 28.7 MCHC 32.1 RDW 14.8 H RDW Differential 47.9 H Plt Count 261 MPV 9.7 Immature Gran % (Auto) 0.300 Neut % (Auto) 78.0 H Lymph % (Auto) 16.5 L [place] % (Auto) 4.7 Eos % (Auto) 0.2 Baso % (Auto) 0.3 Absolute Neuts (auto) 6.8 Absolute Lymphs (auto) 1.45 Total Counted Not Reportable Sodium 139 Potassium 3.6 Chloride 107 Carbon Dioxide 20.0 L Anion Gap 12 BUN 13 Creatinine 1.06 H Estim Creat Clear Calc 39.99 Est GFR (MDRD) Af Amer 65 Est GFR (MDRD) Non-Af 53 L BUN/Creatinine Ratio 12.3 Glucose 152 H Calcium 8.6 Magnesium 1.6 POC Glucose 09/01/18 08/31/18 08/31/18 06:52 21:19 15:41 POC Glucose 143 H 140 H 154 H 08/31/18 12:43 POC Glucose 175 H Discharge Diet: Carb Control Diet Discharge Activity: Return to Normal Activity Call your doctor if you observe: Shortness of breath, Dizziness, Fainting spells, Chest pain Home Medications: Medications to take at Discharge Amlodipine Besylate 5 mg PO DAILY 08/09/13 Citalopram Hydrobromide [Citalopram HBr] 40 mg PO DAILY 08/09/13 Clopidogrel Bisulfate [Clopidogrel] 75 mg PO DAILY 08/09/13 Hydrochlorothiazide 25 mg PO DAILY 08/09/13 Metformin HCl [Metformin HCl ER] 1,000 mg PO BID 08/09/13 Metoprolol Tartrate [Lopressor (beta mert)] 100 mg PO DAILY 08/09/13 Omeprazole 20 mg PO DAILY 08/09/13 Losartan Potassium [Cozaar] 100 mg PO DAILY 10/22/16 Levothyroxine [Synthroid] 200 mcg PO DAILY 02/06/18 Ondansetron [Zofran Odt] 4 mg PO Q8H PRN PRN #7 tab 07/16/18 Rosuvastatin Calcium 5 mg PO DAILY 07/16/18 Buspirone HCl 20 mg PO BID 08/31/18 Liothyronine Sodium 2.5 mcg PO DAILY 08/31/18 Ondansetron [Zofran Odt] 4 mg PO Q8H PRN PRN #10 tab 08/31/18 Trazodone HCl 150 mg PO QHS 08/31/18 traMADol [Ultram] 100 mg PO BID PRN PRN 08/31/18 Following Prescrptions Were Given to Patient: Ondansetron [Zofran Odt] 4 mg PO Q8H PRN PRN #10 tab PRN Reason: Nausea Primary Care Physician: Doris Navarro DO [Primary Care Provider] - 3-5 Days if not improving Please follow up with your Primary Care Physician in: 1 Week Patient Instructions: ED Gastroenteritis Viral Disposition: Home Minutes spent on discharge:: 35 Patient Condition:: Stable Medical Necessity - Tobacco Use Smoking Status: Never smoker Tobacco Use: Non-smoker Meaningful Use Info Meaningful Use Diagnoses (Choose all that apply): None applicable
[2018-09-01 11:11] LABS: Bedside Glucose 194 mg/dL (70-110)
[2018-09-01] MEDS: Insulin Lispro 100 UNIT/ML INSULN.PEN SC (11:57)
[2018-09-01 12:40] VITALS: BP 127/69; PULSE 78; RESP 18; TEMP 36.8; O2SAT 98
== END 2018-09-01 12:38 | disposition home or self-care (01) ==
LOC: ED 08:31 → MS3 11:48
PROVIDERS: Emergency Medicine; Admitting Provider Family Medicine; Emergency Provider Emergency Medicine; Family Provider Internal Medicine; PCP Internal Medicine; Visit Provider Internal Medicine
DX: K52.9 Noninfective gastroenteritis and colitis, unspecified (principal); E78.5 Hyperlipidemia, unspecified; I12.9 Hypertensive chronic kidney disease with stage 1 through stage 4 chronic kidney disease, or unspecified chronic kidney disease; E11.22 Type 2 diabetes mellitus with diabetic chronic kidney disease; N18.3 Chronic kidney disease, stage 3 (moderate); F41.9 Anxiety disorder, unspecified; F32.9 Major depressive disorder, single episode, unspecified; E03.9 Hypothyroidism, unspecified; G47.33 Obstructive sleep apnea (adult) (pediatric); K21.9 Gastro-esophageal reflux disease without esophagitis; E66.9 Obesity, unspecified; E86.0 Dehydration; Z68.33 Body mass index [BMI] 33.0-33.9, adult; Z71.3 Dietary counseling and surveillance; Z79.899 Other long term (current) drug therapy; Z79.02 Long term (current) use of antithrombotics/antiplatelets; Z79.84 Long term (current) use of oral hypoglycemic drugs; Z86.73 Personal history of transient ischemic attack (TIA), and cerebral infarction without residual deficits
CPT/HCPCS: 36415; 74176; 80048; 80076; 81001; 82962; 83690; 83735; 85025; 87086; 87088; 96361; 96372; 96374; 96375; 96376; 97802; 99218; 99283; J7030; J7040; A4216; G0378; J2405

== ENCOUNTER → 2018-10-10 11:21 | Outpatient (CLI) | payer MEDICARE, SELFPAY ==
[2018-10-01 12:02] VITALS: BMI 33.4
--- NOTE | 2018-10-10 13:00 | MRI_ITS ---
STUDY: MRI LUMBAR SPINE WITHOUT CONTRAST REASON FOR EXAM: Female, 78 years old. Low back pain and bilateral leg weakness. TECHNIQUE: Standardized fat and water weighted pulse sequences were obtained in the sagittal and axial planes. COMPARISON: CT of the abdomen and pelvis without contrast 08/31/2018. FINDINGS: T10-T11: (Sagittal only). The ventral half of the T10 inferior endplate is not included. Normal vertebral endplates. Mild disc space height narrowing. Normal disc morphology. No ventral extradural defect. Normal central canal. Both intervertebral neural foramina are not included. T11-T12: (Sagittal only). Small anterior marginal spurs. Normal endplates. Mild disc space height narrowing. Small posterior annular bulging disc. Normal central canal and bilateral intervertebral neural foramina. T12-L1: (Sagittal only). Normal endplates. Mild focal fatty infiltration involving the lower T12 vertebral body. Normal disc height, hydration and morphology. No ventral extradural defect. Normal central canal and bilateral intervertebral neural foramina. Normal lumbar lordosis. There is no substantial scoliosis. Normal conus medullaris that terminates at the upper L1 vertebral body level. L1-2: Normal endplates. Normal disc height. Small posterior bulging disc. Mild central canal stenosis with an AP canal diameter of 9.6 mm. Mild dorsal epidural lipomatosis. Normal bilateral lateral recesses. Normal facet joints. Normal bilateral intervertebral neural foramina. L2-3: Normal endplates. Mild disc space height narrowing. Prominent posterior midline disc protrusion. Pronounced central canal stenosis with an AP canal diameter of 5.3 mm. Prominent dorsal epidural lipomatosis. Moderate stenosis of the left lateral recesses. Mild stenosis of the right lateral recess. Posterior ligamenta flava hypertrophy. Mild degenerative facet arthropathy. Normal bilateral intervertebral neural foramina. Possible small benign vertebral body hemangioma in the right side of the L3 vertebral body. L3-4: Modic type I degenerative vertebral marrow edema underneath the left side of the vertebral endplates. Prominent posterior annular bulging disc and left-sided foraminal disc protrusion (series 3, image 4; series 5 and 6, image 13). Severe central canal stenosis with an AP canal diameter of 4 mm. Severe stenosis of the bilateral lateral recesses. Posterior ligamenta flava hypertrophy. Mild asymmetric degenerative facet arthropathy. Moderate stenosis of the left intervertebral neural foramen. Normal right intervertebral neural foramen. L4-5: Modic type II degenerative vertebral marrow fatty changes underneath the vertebral endplates. Pronounced disc space height narrowing. Minimal anterior posterior marginal spurs. Pronounced central canal stenosis with an AP canal diameter of 4 mm. Posterior ligamenta flava hypertrophy. Mild degenerative facet arthropathy. Mild stenosis of the bilateral intervertebral neural foramina. L5-S1: Normal endplates. Normal disc height. Small posterior bulging disc. Normal tapered termination of the central canal surrounded by epidural lipomatosis. Pronounced bilateral degenerative facet arthropathy. Moderate pronounced stenosis of the left intervertebral neural foramen with suspicious impingement of the left L5 nerve. Moderate stenosis of the right intervertebral neural foramen with minimal impingement of the right L5 nerve. Normal visualized sacral ala. Normal visualized paraspinous soft tissue structures. MRI/Spine Lumbar (Routine) IMPRESSION: 1. Severe central canal stenosis at L3-L4 disc level, Modic type I degenerative vertebral marrow edema underneath the left side of the vertebral endplates, prominent posterior annular bulging disc with left-sided foraminal disc protrusion and moderate stenosis of the left intervertebral neural foramen. 2. Severe central canal stenosis at L4-L5 disc level, pronounced L4-L5 disc space height narrowing and mild stenosis of the bilateral intervertebral neural foramina. 3. Pronounced central canal stenosis at L2-L3 disc level with prominent posterior midline disc protrusion. 4. Moderately pronounced stenosis of the left L5-S1 intervertebral neural foramen with suspicious osteophytic impingement of the left L5 nerve and moderate stenosis of the right L5-S1 intervertebral neural foramen with minimal impingement of the right L5 nerve. 5. Small T1 and T2 hypointensity focus in the right side of the L2 vertebral body is hyperintense on sagittal STIR sequence. This may represent a small benign vertebral body hemangioma. I am unable to confirm this on the CT of the abdomen and pelvis of 08/31/2018. Electronically Signed: Buck Wong MD at 9:29 EDT , Service support ,
== END ==
PROVIDERS: Family Provider Internal Medicine; PCP Internal Medicine; Referring Provider Internal Medicine; Visit Provider Internal Medicine
DX: M54.5 Low back pain (principal); M54.16 Radiculopathy, lumbar region
CPT/HCPCS: 72148

== ENCOUNTER 2018-10-17 13:00 | Outpatient (RCR) | payer MEDICARE, SELFPAY ==
[2018-10-01 12:02] VITALS: BMI 33.4
--- NOTE | 2018-10-01 13:57 | HP.PTEVAL_ITS ---
Patient's Visit Information NITZA CRUZ is a 78 year old F referred to Physical Therapy by Doris Navarro DO with a diagnosis of Stiff legs adn difficulty with gait.. Date of Evaluation: 10/01/18 Physical Therapist: Francis Meraz, DPT, OCS, CSCS - Visit Plan Frequency: 2x /Week Duration: 4-6 Weeks Plan: 2x/week for 4-6 weeks for. 1. LB NS focus and ROM progressing HEP. 2. rollout and stretch ITB, QUADS adn HS and progress to HEP. 3. NS strength program in standing and teach for HEP - Subjective Findings: B posterior leg pain down back for months. Taking meds now and it has taken care of the pain over the last month. Stiffness in legs is now the main problem. This keeps her from walking any distances. Wants to be able to do houseworka dn outdoor work without noticing symptoms. Stiffness allows her to talk herself out of doing things. Would like to dance btu unable in 6 months. Pain and stiffness has geraldo caused by stroke adn fall down the basement steps losing balance whcih was 18 months ago. No dizzyness, no neuropathy. No AD needed. No other falls. Sleep is not a problem. Basic ADLS are done I. No steps at home. No exercises outside of a couple leg rOM exercises. Walks through store for groceries but it wears her out. - Pain posterior legs Pain Intensity (Out of 10): 0 Pain Intensity Range: 0, 8 Comment: 8 /10 on feet immediately, gone with sit - Objective Walks slow and hesitant. Very little L/S AROM, ext max limited and reporduces leg symptoms making them worse. flexion is mod limited and no increased pain. SB Min limited without pain. HS, quad and ITB and prirformis max tight. -30 90/90 test B. reflexes 2/3 patella and achilles. sensation LE WNL to gross light touch. strength LE functional and 4/5 without myotomal abnomralities. - Balance Scores Functional Gait Assessment Score: 23 % Disability: 23.3400 - Goals Goal 1:: I approp HEP for LB rom and LE flexibility. Goal Time Frame: 4-6 Weeks Goal 2:: Patient ambulate 500 feet without increasing stiffness or pain in legs to make ADLS and housework more tolerable. Goal Time Frame: 4-6 Weeks Goal 3:: Pt note a 50% improvement in her condition to be more active and not turn down social engagements due to pain. Goal Time Frame: 4-6 Weeks Goal 4:: LEFS improved by 10 points Goal Time Frame: 4-6 Weeks - Rehabilitation Potential Physical Therapy Diagnosis: stiffness and difficulty likely form stenosis Rehabilitation Potential: Fair - Anticipated Interventions Patient/Client Instruction: Educate patient on: Condition, Plan of Care For the Purpose of:: To decrease pain, To increase ROM, To improve nutrient delivery to tissue, To improve muscle performance and motor function Therapeutic Exercise to Include: Strength training, Flexibilty training, Passive ROM, Active ROM, Dynamic Lumbar Stabilization For the Purpose of:: To decrease pain, To increase ROM, To improve nutrient delivery to tissue, To improve muscle performance and motor function, To increase tolerance to activity/condition/position Manual Therapy Techniques to Include: Soft tissue mobilization Comment: upper legs. For the Purpose of:: To increase ROM Thank you for the opportunity to evaluate your patient. For Medicare and Medicare HMO plans, please review the plan of care and approve it. It will need to be FAXED BACK to us at [phone] for Medicare purposes. For Medicare only, by signing this I certify the plan of care. Please let me know if there are questions or concerns regarding this plan of c are. Physician Signature: Date:
--- NOTE | 2018-12-01 14:57 | HP.PT.NRP ---
HP - Discharge Summary (1) - Patient Information NITZA CRUZ was seen in my office for initial evaluation on 10/01/18. The following Plan of Care was established for this patient: Initial Frequency: 2x /Week Initial Duration: 4-6 Weeks - Anticipated Interventions Patient/Client Instruction: Educate patient on: Condition, Plan of Care For the Purpose of:: To decrease pain, To increase ROM, To improve nutrient delivery to tissue, To improve muscle performance and motor function Therapeutic Exercise to Include: Strength training, Flexibilty training, Passive ROM, Active ROM, Dynamic Lumbar Stabilization For the Purpose of:: To decrease pain, To increase ROM, To improve nutrient delivery to tissue, To improve muscle performance and motor function, To increase tolerance to activity/condition/position Manual Therapy Techniques to Include: Soft tissue mobilization Comment: upper legs. For the Purpose of:: To increase ROM This patient was last seen in our office 10/17/18. Pertinent comments regarding their Physical therapy will appear below: Pt seen 3 visits of plan of care and neglected to schedule any further. at this point, it has been nearly 6 weeks since attendance and I will discontinue due to nonattendance. At this point I will be discontinuing this patient from physical therapy. I would be happy to see this patient again in the future if found appropriate by the physician. Thank you! Francis Meraz, DPT, OCS, CSCS
== END 2018-10-17 19:00 | disposition home or self-care (01) ==
LOC: PT 13:00
PROVIDERS: Family Provider Internal Medicine; PCP Internal Medicine; Referring Provider Internal Medicine; Visit Provider Internal Medicine
DX: R26.2 Difficulty in walking, not elsewhere classified (principal); M62.89 Other specified disorders of muscle
CPT/HCPCS: 97110; 97162

== ENCOUNTER 2018-10-22 19:49 | Emergency (ER) | payer MEDICARE, SELFPAY ==
[2018-10-01 12:02] VITALS: BMI 33.4
[2018-10-22 19:50] VITALS: BP 142/66; PULSE 78; PULSE 79; RESP 18; TEMP 36.5; O2SAT 94; O2SAT 95; BMI 34.7
--- NOTE | 2018-10-22 21:49 | RAD_ITS ---
STUDY: X-RAY - RIGHT SHOULDER REASON FOR EXAM: Female, 78 years old. Fall, right shoulder pain TECHNIQUE: 4 view(s) of the shoulder. 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 There are humeral head osteophytes. There is generalized osteopenia. There are multiple old right rib fractures unchanged. There are no acute fractures of the right shoulder. The soft tissue structures are unremarkable. Normal visualized pulmonary apex. RAD/Shoulder min 2 Views IMPRESSION: Generalized osteopenia, degenerative changes no acute fractures Old fractures right ribs Electronically Signed: Srinivasan Bernabe, at 23:25 EDT Tel , Service support ,
--- NOTE | 2018-10-22 22:15 | RAD_ITS ---
STUDY: X-RAY - RIGHT ELBOW REASON FOR EXAM: Female, 78 years old. Status post fall. TECHNIQUE: 3 view(s) of the elbow. COMPARISON: None. FINDINGS: Normal visualized humerus, radius and ulna. Normal radiocapitellar and ulnotrochlear articulations. The soft tissue structures are unremarkable. There is no demonstrated fracture. RAD/Elbow min 3 Views IMPRESSION: No demonstrated acute fracture. Electronically Signed: Duc Paul MD at 23:30 EDT Tel , Service support ,
--- NOTE | 2018-10-22 23:40 | ED.VISSUMM ---
- ER Visit Summary Date of Service: 10/22/18 Chief Complaint: Fall History of Present Illness: The patient is a 78 F who presents after a fall that occurred today. Patient tripped on uneven pavement and fell forward. Patient hit her face and fractured her left upper lateral incisor. Patient also complains of pain in her right elbow, arm, and shoulder. Patient denies any paresthesias or weakness. Patient states her last tetanus was within 5 years. She denies any loss of consciousness. Patient was able to ambulate at the scene. Physical Examination: Vital signs are stable. Patient is afebrile. Patient is in no acute distress. Oral mucosa is pink and moist. There is a fracture of the left upper lateral incisor. There is no bleeding noted. Oral mucosa is pink and moist. Oropharynx is clear. Airway is patent. There is a superficial abrasion of the lower lip. There is no active bleeding noted. There is no mandibular tenderness. Heart was regular rate and rhythm. Lungs are clear and equal bilaterally. Abdomen is soft and nontender. There is tenderness over the right elbow, arm, and shoulder. Age of motion of the right elbow and shoulder were somewhat limited secondary to pain. There is no obvious deformity noted. Radial pulses are equal bilaterally. The remaining physical exam is within normal limits. Test Results: X-rays of the right shoulder and right elbow were obtained. There is no acute fracture. Emergency Department Course and Treatment: Patient was instructed to ice and elevate the right upper extremity. Patient was instructed to follow-up with her primary care physician in 5-7 days. Patient was also instructed to follow-up with her dentist in 5-7 days. Patient understood and was agreeable with the plan. All questions were answered. Disposition: Discharge home Impression: 1. Right shoulder contusion 2. Right elbow contusion 3. Dental fracture 4. Lower lip abrasion This note was generated with [employer] dictation software. It may contain incorrect words, spelling, and punctuation that were not noted in review of the chart prior to signing ED Disposition - Plan for ED Patient: Disposition: Home or Assisted Living Diagnosis: Contusion of right shoulder, Contusion of right elbow, initial encounter, Fractured tooth due to trauma without complication, Abrasion of lip, initial encounter Instructions: ED Mechanical Fall, ED Contusion Upper Ext, ED Fx Tooth Referrals: Melanie,Doris, DO [Primary Care Provider] - 5-7 Days
[2018-10-23 00:02] VITALS: RESP 16
== END 2018-10-23 00:02 | disposition home or self-care (01) ==
PROVIDERS: Emergency Provider Emergency Medicine; Family Provider Internal Medicine; PCP Internal Medicine
DX: S02.5XXA Fracture of tooth (traumatic), initial encounter for closed fracture (principal); S40.011A Contusion of right shoulder, initial encounter; S50.01XA Contusion of right elbow, initial encounter; S00.511A Abrasion of lip, initial encounter; W18.09XA Striking against other object with subsequent fall, initial encounter; Y93.9 Activity, unspecified; Y92.9 Unspecified place or not applicable; Z79.899 Other long term (current) drug therapy; Z86.73 Personal history of transient ischemic attack (TIA), and cerebral infarction without residual deficits
CPT/HCPCS: 73030; 73080; 99282

== ENCOUNTER → 2019-03-18 10:53 | Outpatient (CLI) | payer MEDICARE, SELFPAY ==
[2019-03-18 10:59] LABS: Mucous, Urine 0 SEEN /hpf (<or=2+); Squamous Epithelial Cells - UA 0 SEEN /hpf (5-10)
[2019-03-18 11:21] LABS: Absolute Lymphocyte Count 1.72 X10^3/uL (0.83-4.51); Absolute Neutrophil Count 7.3 X10^3/uL (2.0-7.7); Basophil# 0.04 X10^3/uL; Basophil% 0.4 % (0-1); Color, Urine Yellow (Yellow); Eosinophil# 0.34 X10^3/uL; Eosinophils% 3.4 % (0-5); Glucose, Dipstick Normal (Normal); Hematocrit 38.1 % (37-47); Hemoglobin 12.1 g/dL (12.0-15.0); Ketone-Dipstick Negative (Negative); Leukocyte Esterase-Dipstick 500 /ul (Negative); Lymphocyte # 1.72 X10^3/ul (4.0); Mean Corp Hgb Conc 31.8 g/dL (32-36); Mean Corpuscular Hgb 28.1 pg (27.0-32.0); Mean Corpuscular Volume 88.6 fL (81-99); Mean Platelet Vol. 9.1 fl (6.2-12.0); Monocyte% 5.9 % (0-10); NRBC Flagged by Analyzer 0 % (0-5); Neutrophil % 72.3 % (47-70); Nitrite-Dipstick Negative (Negative); Occult Blood-Urine Negative /ul (Negative); Platelet Count 286 K/mm3 (150-450); Protein-Dipstick 15 mg/dl (Negative); RBC Distribution Width CV 13.9 % (11.6-14.6); RBC Distribution Width SD 44.6 fl (35.1-43.9); Specific Gravity, Urine 1.015 (1.002-1.030); Urine Bilirubin Dipstick Negative (Negative); Urine Clarity Sl. Cloudy (Clear); Urine Urobilinogen 1 mg/dl (Normal); Urine pH 6.5 (5.0 - 8.0); White Blood Count 10.1 K/mm3 (4.4-11.0)
[2019-03-18 11:39] LABS: Bacteria RARE /hpf (None Seen); Red Blood Cells-Urine 0-5 SEEN /hpf (0-5); White Blood Cells 10-25 SEEN /hpf (0-5)
[2019-03-18 11:42] LABS: Microalbumin:Creatinine Ratio 27.1 mg/g CRE (<30 mg/g CRE)
[2019-03-18 11:54] LABS: Vitamin D,25 Hydroxy 18.8 ng/mL (29.95-100.01)
[2019-03-18 12:02] LABS: ALB/GLOB Ratio 0.9 RATIO (0.9-2.4); AST(SGOT) 17 U/L (15-37); Alanine Aminotransfer ALT/SGPT 35 U/L (13-56); Albumin, Serum 3.4 g/dL (3.2-5.0); Alkaline Phosphatase 124 U/L (45-117); Anion Gap 7 (5-15); BUN 27 mg/dL (7-18); BUN/Creat Ratio 20.6 RATIO (10-20); Calcium,Total 8.9 mg/dL (8.5-10.1); Chloride 103 mmol/L (98-107); Creatinine, Serum 1.31 mg/dL (0.55-1.02); EST Glomerular Filtration Rate 42 mL/min (>60); Est Glom Filt Rate - Afr Amer 51 mL/min (>60); Free T3 1.8 pg/mL (2.18-3.98); Globulin 3.8 g/dL (2.2-4.2); Glucose 130 mg/dL (74-106); Potassium 4.4 mmol/L (3.5-5.1); Protein, Total 7.2 g/dL (6.4-8.2); Sodium Level 138 mmol/L (136-145); T4 Free Direct 1.11 ng/dL (0.76-1.46); Thyroid Stim Hormone (TSH) 3.72 uIU/mL (0.358-3.74)
[2019-03-19 14:08] LABS: CHOLESTEROL TOTAL 178 mg/dL (100-199); HDL-C 57 mg/dL (>39); HDL-P TOTAL 36.5 umol/L (>=30.5); SMALL LDL-P 765 nmol/L (<=527); TRIGLYCERIDES 165 mg/dL (0-149)
[2019-03-20 13:31] LABS: INSULIN RESISTANCE SCORE 57 (<=45); LDL SIZE 20.9 nm (>20.5); LDL-C 88 mg/dL (0-99); LDL-P 1213 nmol/L (<1000)
== END ==
PROVIDERS: Family Provider Internal Medicine; PCP Internal Medicine; Referring Provider Internal Medicine; Visit Provider Internal Medicine
DX: E55.9 Vitamin D deficiency, unspecified (principal); E03.9 Hypothyroidism, unspecified; E11.65 Type 2 diabetes mellitus with hyperglycemia
CPT/HCPCS: 36415; 80053; 80061; 81001; 82043; 82306; 82570; 83704; 84439; 84443; 84481; 85025

== ENCOUNTER → 2019-04-24 13:50 | Outpatient (CLI) | payer MEDICARE, SELFPAY ==
--- NOTE | 2019-04-24 13:54 | RAD_ITS ---
STUDY: X-RAY CHEST REASON FOR EXAM: Female, 79 years old. Cough TECHNIQUE: Frontal and lateral views of the chest COMPARISON: 05/14/2018 FINDINGS: The lungs are clear. There are no pleural effusions. There is no pneumothorax. The heart is normal in size. Again noted are old, healed right-sided rib fractures. RAD/Chest PA and Lateral IMPRESSION: No acute thoracic pathology. Electronically Signed: Nikolas Warren, at 20:27 EDT Tel , Service support ,
== END ==
PROVIDERS: Family Provider Internal Medicine; PCP Internal Medicine; Referring Provider Internal Medicine; Visit Provider Internal Medicine
DX: R05 Cough (principal)
CPT/HCPCS: 71046

== ENCOUNTER 2019-07-24 15:28 | Observation (INO) | payer MEDICARE, SELFPAY ==
[2019-07-24] VITALS (7 sets, daily range): BP systolic 111–134; BP diastolic 63–81; PULSE 68–82; RESP 16–19; TEMP 36.8–37.3; O2SAT 92–95; BMI 33.9; BMI 35.9; BMI 36.0
--- NOTE | 2019-07-24 15:42 | EKG12_ITS ---
Test Reason : SYNCOPE Blood Pressure : / mmHG Vent. Rate : 078 BPM Atrial Rate : 078 BPM P-R Int : 232 ms QRS Dur : 086 ms QT Int : 372 ms P-R-T Axes : 044 -28 049 degrees QTc Int : 424 ms Sinus rhythm with 1st degree A-V block Otherwise normal ECG Confirmed by KHANH HILTON ([id number]), supervising editor news reel ADALID CARTER ([id number]) on 07/28/2019 2:43:30 PM Referred By: NIRAV Confirmed By:KHANH HILTON
--- NOTE | 2019-07-24 15:42 | CT_ITS ---
STUDY: CT BRAIN WITHOUT CONTRAST REASON FOR EXAM: Female, 79 years old. Syncope. Fall. RADIATION DOSAGE (If Supplied By Facility): CTDIvol = ( 60.81 ) mGy, DLP = ( 1044.28 ) mGycm TECHNIQUE: Transaxial CT imaging of the brain was performed without administration of intravenous contrast material. Individualized dose optimization techniques were used for this CT. COMPARISON: 02/07/2018 FINDINGS: There is no acute bleed or infarct. There are stable chronic ischemic and atrophic changes. The ventricles are normal in configuration. There is no hydrocephalus. The visualized paranasal sinuses are clear. The mastoid air cells are well aerated. There is no skull fracture. CT/Brain/Head without Contrast IMPRESSION: Stable chronic ischemic and atrophic changes. No acute intracranial abnormality. Electronically Signed: Nikolas Warren, at 16:34 EST Tel , Service support ,
[2019-07-24] MEDS: 0.9% Normal Saline 1,000 ML 150 ML IV (15:58)
[2019-07-24] MEDS: Ondansetron 4 MG/2 ML Vial IV (15:58)
[2019-07-24] MEDS: Morphine 4 MG/ML Syringe IV (15:58)
--- NOTE | 2019-07-24 16:04 | ED.VISSUMM ---
- ER Visit Summary Date of Service: 07/24/19 Chief Complaint: [Syncope] History of Present Illness: The patient is a 79 F [presents to the emergency department complaint of a syncopal episode that occurred about 40 minutes ago. Patient states that she had gotten off the cell phone and was walking into the family room when she blacked out and she states she fell backwards and struck her head on the wall. Patient fell to the ground and is complaining of low back pain. She was able to get herself up. She is not sure how long she was unconscious but she does not believe it was for very long. There was nobody home with her at the time. Patient denies any chest pain or palpitations. Denies any other precipitating factors. Patient's had a cough that she has had for months but seems to be getting better. She denies any pain rating down her legs. She denies any saddle anesthesia. She denies any weakness in extremities. She denies loss of or change in bowel or bladder function. Patient has prior history of stroke, GERD, diabetes, hypertension, pancreatitis, hypothyroidism. Patient is on Plavix.] Patient also has history of chronic back pain and sees pain management and has had spinal injections in the past. Patient denied back pain prior to her fall. Physical Examination: [HEENT-PERRLA, EOMI. Cranial nerves II through XII grossly intact. TMs clear. Mucous membranes moist. No adenopathy. No external evidence of trauma to her head. Patient has no C-spine tenderness on palpation. Cardiovascular-regular rate and rhythm without murmur or ectopy Lungs-clear to auscultation, chest wall stable without crepitus or subcu emphysema Abdomen-normoactive bowel sounds, soft, nontender, no rebound or rigidity, no peritoneal signs. Back exam-patient has a diffuse tenderness over lumbar spine. Negative straight leg raises. Deep tendon reflexes are plus 2 out of 4 bilaterally at the patella and Achilles. Patient has normal 5 extension bilaterally. Extremities-intact ?4, normal range of motion, normal pulses, atraumatic] Test Results: [KG obtained on arrival showed a sinus rhythm with a first-degree AV block with a ventricular rate of 78 bpm] CBC with differential obtained showed a white count of 9.0, hemoglobin 11.9, hematocrit 37, platelets 281. Chemistries unremarkable. Glucose was 243. Troponin was less than 0.015. CT scan of the brain without contrast showed stable changes with no acute evidence of intracranial injury. X-rays of the lumbar spine obtained showed degenerative changes but I do not appreciate any fractures. Orthostatic vital signs were negative. Emergency Department Course and Treatment: [Patient was medicated with morphine and Zofran.] Treatment Plan: [Patient will be admitted as etiology of her syncope unclear.] Disposition: [Admit] Impression: [Syncope-etiology uncertain Closed head injury Contusion back] This note was generated with [employer] dictation software. It may contain incorrect words, spelling, and punctuation that were not noted in review of the chart prior to signing ED Disposition - Plan for ED Patient: Referrals: Doris Navarro DO [Primary Care Provider] -
[2019-07-24 16:06] LABS: Absolute Lymphocyte Count 1.86 X10^3/uL (0.83-4.51); Absolute Neutrophil Count 6.3 X10^3/uL (2.0-7.7); Basophil# 0.05 X10^3/uL; Basophil% 0.6 % (0-1); Eosinophil# 0.23 X10^3/uL; Eosinophils% 2.6 % (0-5); Hematocrit 37.4 % (37-47); Hemoglobin 11.9 g/dL (12.0-15.0); Lymphocyte # 1.86 X10^3/ul (4.0); Lymphocyte % 20.8 % (19-41); Mean Corp Hgb Conc 31.8 g/dL (32-36); Mean Corpuscular Hgb 27.7 pg (27.0-32.0); Mean Corpuscular Volume 87.2 fL (81-99); Mean Platelet Vol. 9.6 fl (6.2-12.0); Monocyte# 0.48 X10^3/uL; Monocyte% 5.4 % (0-10); NRBC Flagged by Analyzer 0 % (0-5); Neutrophil # 6.25 X10^3/uL (2.7-7.7); Neutrophil % 69.6 % (47-70); Platelet Count 281 K/mm3 (150-450); RBC Distribution Width CV 14.6 % (11.6-14.6); RBC Distribution Width SD 46.5 fl (35.1-43.9); Red Blood Count 4.29 M/mm3 (4.2-5.4)
--- NOTE | 2019-07-24 16:15 | RAD_ITS ---
STUDY: X-RAY - LUMBAR SPINE REASON FOR EXAM: Female, 79 years old. Fall. Pain. TECHNIQUE: 3 view(s) of the lumbar spine were obtained. COMPARISON: 06/24/2018 FINDINGS: There is a new mild compression fracture of the superior endplate of L2. The remainder of the visualized lumbar vertebral bodies are intact. There are stable degenerative changes. RAD/Lumbar Spine 2 or 3 Views IMPRESSION: New mild compression fracture of the superior endplate of L2. Electronically Signed: Nikolas Warren, at 16:51 EST Tel , Service support ,
[2019-07-24 16:34] LABS: Anion Gap 8 (5-15); BUN 19 mg/dL (7-18); BUN/Creat Ratio 12.8 RATIO (10-20); Calcium,Total 9.2 mg/dL (8.5-10.1); Chloride 100 mmol/L (98-107); Creatinine, Serum 1.48 mg/dL (0.55-1.02); EST Glomerular Filtration Rate 36 mL/min (>60); Est Glom Filt Rate - Afr Amer 44 mL/min (>60); Estimated Creatinine Clearance 28.19 ml/min; Glucose 243 mg/dL (74-106); Potassium 4.1 mmol/L (3.5-5.1); Sodium Level 136 mmol/L (136-145)
--- NOTE | 2019-07-24 17:43 | ECHOCS_ITS ---
Reason For Study: Syncope Procedure This was a 2D Doppler, Color Flow transthoracic echocardiogram. The study was technically difficult. Exam performed portable in patient room. Left Ventricle Normal size and thickness. The estimated ejection fraction is 65 %. Stage 1 diastolic dysfunction. No regional wall motion abnormalities noted. Right Ventricle Normal size and thickness. Normal systolic function. Atria Normal left atrium. Normal right atrium. Normal atrial septum. Mitral Valve The mitral valve is structurally normal. No prolapse or stenosis seen. Tricuspid Valve Normal tricuspid valve. Unable to estimate RV systolic pressure due to insufficient tricuspid regurgitant envelope. Aortic Valve Trisinus/trileaflet aortic valve. Moderate diffuse aortic valve thickening. Mild restriction of the aortic valve. Peak aortic valve gradient 29 mmHg. Mean aortic valve gradient 16 mmHg. Calculated aortic valve area (continuity equation) is 1.3 cm2. Mild aortic stenosis. Pulmonic Valve Normal pulmonic valve. Great Vessels Calcified aortic root. Moderate atherosclerosis of the aortic arch. Normal inferior vena cava. Inferior vena cava collapse with sniff. Pericardium/Pleural No pericardial effusion. Medication Diluted definity 2ml given slow IV push to enhance endocardial definition. MMode/2D Measurements & Calculations LVIDd: 4.8 cm IVSd: 1.3 cm LVOT diam: 2.0 cm LVIDs: 3.0 cm LVPWd: 0.96 cm FS: 37.1 % LVOT area: 3.0 cm2 Ao root diam: 3.5 cm LA dimension(2D): 3.7 cm Doppler Measurements & Calculations MV E max vamsi: 87.4 cm/sec Lat Peak E' Vamsi: 5.5 cm/sec Med Peak E' Vamsi: 5.2 cm/sec MV A max vamsi: 131.8 cm/sec E/E' lat: 15.9 E/E' med: 16.9 MV E/A: 0.66 Ao V2 max: 267.4 cm/sec LV V1 max: 112.1 cm/sec SV(LVOT): 71.2 ml Ao max P.6 mmHg LV V1 max P.0 mmHg Ao V2 mean: 187.1 cm/sec LV V1 mean P.7 mmHg Ao mean P.8 mmHg LV V1 mean: 78.0 cm/sec Ao V2 VTI: 54.4 cm LV V1 VTI: 23.5 cm OCTAVIO(I,D): 1.3 cm2 OCTAVIO(V,D): 1.3 cm2 PA V2 max: 105.8 cm/sec Interpretation Summary The estimated ejection fraction is 65 %. Stage 1 diastolic dysfunction. Unable to estimate RV systolic pressure due to insufficient tricuspid regurgitant envelope. Mild restriction of the aortic valve. Mild aortic stenosis. Compared to echo results dated 02/07/2018, no appreciable changes noted. The study was technically difficult. Contrast injection was performed. Ordering Physician: Edd Davila Referring Physician: Doris Navarro M.D. Performed By: Sharyn Bear RDCS
--- NOTE | 2019-07-24 17:44 | HP.PCM_ITS ---
History of Present Illness Date of Admission: 07/24/19 Chief Complaint: Syncope The patient is a 79 year old F H as below who presents with syncope. She states that she was feeling fine today but she was sitting on the couch and she got up and she took a couple steps in the next and she remembers is waking up on the floor. She feel that she hit her head because she was having a headache after she fell and she was also having back pain which was little bit worse than her chronic back pain which she sees pain management for. She denies feeling any palpitations, or lightheadedness or dizziness prior to getting up. She does not think that she was at a long time on the floor and she was able to get he rself off and call an ambulance to come into the hospital. In the ER orthostatic vital signs were negative and lab work was all normal, her creatinine is 1.48 which is at baseline. Past Medical History Past Medical History (Chronic Problems): Chronic Problems CKD (chronic kidney disease) stage 3, GFR 30-59 ml/min (Chronic) Esophageal reflux (Chronic) History of pancreatitis (Chronic) History of abdominal pain (Chronic) Type 2 diabetes mellitus (Chronic) Obesity (Chronic) Hypothyroidism (Chronic) CVA (cerebral vascular accident) (Chronic) Hypertension (Chronic) Allergies naproxen [From Naprosyn] Allergy (Verified 07/24/19 15:31) Hives Penicillins [PCN] Allergy (Verified 07/24/19 15:31) Hives guaifenesin [From Mucinex] Adverse Reaction (Verified 07/24/19 15:31) Unknown ketoprofen Adverse Reaction (Verified 07/24/19 15:31) Unknown loracarbef [From Lorabid] Adverse Reaction (Verified 07/24/19 15:31) Unknown bee sting Adverse Reaction (Uncoded 07/24/19 15:31) Unknown Home Medications: Ambulatory Orders Medication Instructions Recorded Amlodipine Besylate 5 mg PO DAILY 08/09/13 Citalopram Hydrobromide 40 mg PO DAILY 08/09/13 [Citalopram HBr] Clopidogrel Bisulfate [Clopidogrel] 75 mg PO DAILY 08/09/13 Hydrochlorothiazide 25 mg PO DAILY 08/09/13 Metformin HCl [Metformin HCl ER] 500 mg PO BID 08/09/13 Metoprolol Tartrate [Lopressor 100 mg PO DAILY 08/09/13 (beta mert)] Omeprazole 20 mg PO DAILY 08/09/13 Losartan Potassium [Cozaar] 50 mg PO DAILY 10/22/16 Levothyroxine [Synthroid] 200 mcg PO DAILY 02/06/18 Rosuvastatin Calcium 5 mg PO DAILY 07/16/18 ALPRAZolam [Xanax] 0.5 mg PO BID PRN PRN 10/22/18 Surgical History: - - Appendectomy, cholecystectomy, tonsillectomy, hysterectomy. 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 Denies: Chest Pain, Palpitations Respiratory: Denies: Cough, Shortness of breath at rest, Sputum production Gastrointestinal: Denies: Abdominal Pain, Nausea, Vomiting Genitourinary: Denies: Dysuria Musculoskeletal: Denies: Joint Pain, Joint Tenderness Skin: Denies: Rash, Wounds Neurological: Denies: Numbness, Tingling, Focal weakness Psychiatric: Denies: Anxiety, Depression Hematologic/ Lymphatic: Denies: Easy Bruising, Easy Bleeding VTE Information - Inpt Only VTE Present on Admission: No - Physical Exam Vitals/I&O's: Vital Signs Temp Pulse Resp BP Pulse Ox 98.5 F 68 19 H 116/65 92 07/24/19 17:27 07/24/19 17:27 07/24/19 17:27 07/24/19 17:27 07/24/19 17:27 Oxygen Delivery Method Room Air Weight: 216 lb 4.375 oz Body Mass Index (BMI) 35.9 Finger Stick Blood Glucose 152 General: Alert, Oriented x3, Cooperative, No apparent distress HEENT: Atraumatic, PERRLA, EOMI, Normocephalic Oral: Moist Mucosa Neck: Supple, No JVD Lungs: Clear to auscultation, Normal air movement, No rhonchi, No wheeze, No rales, Diminished Cardiovascular: Regular rate, Regular Rhythm, Normal S1, Normal S2, No murmurs Abdomen: Soft, Non Tender, Non-Distended, No Hepato-splenomegaly Extremities: No edema, Capillary Refill Less than 3 Seconds Skin: No rashes, No breakdown Musculoskeletal: No Tenderness to Palpation of Joints or Extremities Neurological: Neuro grossly intact, Sensory exam intact to light touch and pain Psych/Mental Status: Normal Affect, Appropriate Laboratory Results 07/24/19 15:40: WBC 9.0, RBC 4.29, Hgb 11.9 L, Hct 37.4, MCV 87.2, MCH 27.7, MCHC 31.8 L, RDW Std Deviation 46.5 H, RDW Coeff of Juanito 14.6, Plt Count 281, MPV 9.6, Immature Gran % (Auto) 1.000 H, Neut % (Auto) 69.6, Lymph % (Auto) 20.8, [place] % (Auto) 5.4, Eos % (Auto) 2.6, Baso % (Auto) 0.6, Absolute Neuts (auto) 6.3, Absolute Lymphs (auto) 1.86, Nucleated RBC % 0 07/24/19 15:40: Sodium 136, Potassium 4.1, Chloride 100, Carbon Dioxide 28.0, Anion Gap 8, BUN 19 H, Creatinine 1.48 H, Estim Creat Clear Calc 28.19, Est GFR (MDRD) Af Amer 44 L, Est GFR (MDRD) Non-Af 36 L, BUN/Creatinine Ratio 12.8, Glucose 243 H, Calcium 9.2, Troponin I < 0.015 Current Medications Sodium Chloride () 1,000 mls @ 150 mls/hr IV .[id number] [facility] Last Admin: 07/24/19 15:58 Dose: 150 mls/hr Documented by: Sodium Chloride () 10 - 40 ml IV UD PRN PRN Reason: SALINE FLUSH Assessment/Plan All Active Problems Acute gastroenteritis (Acute) 1. Vasovagal syncope -We will obtain an echo in the morning -We will monitor on telemetry -Orthostatics in the ER were normal -Continue with IV fluids at 75 cc/h -PT/OT -CT of the brain was negative -X-ray of her low back shows a mild compression fracture of her L2 vertebra, she can follow-up with her pain management doctor as an outpatient 2. History of CVA/HTN/HLD -Blood pressure stable -Continue with losartan, Norvasc, Plavix, hydrochlorothiazide, and metoprolol -Continue with Crestor 3. DM 2/CKD 3 -Hold her oral hypoglycemics -Sliding scale insulin Accu-Cheks AC at bedtime -Creatinine is 1.48 which is baseline 4. Hypothyroidism -Stable -Continue with Synthroid 5. Anxiety/depression -Stable -Continue with Xanax and Celexa 6. GERD -Stable -Continue with PPI DVT: Heparin Code Visit OBSV E&M: 36006 Initial observation care L3
[2019-07-24 18:01] LABS: Bedside Glucose 174 mg/dL (70-110)
[2019-07-24] MEDS: Heparin Injection (Vial) 5,000 UNIT/ML VIAL 5000 UNIT SC (22:59)
[2019-07-24] MEDS: Insulin Lispro 100 UNIT/ML INSULN.PEN SC (22:59)
[2019-07-24] MEDS: Acetaminophen 325 MG Tablet 650 MG PO (23:00)
[2019-07-24] MEDS: Atorvastatin Calcium 10 MG Tablet PO (23:00)
[2019-07-25] VITALS (7 sets, daily range): BP systolic 111–164; BP diastolic 71–108; PULSE 73–95; RESP 17–19; TEMP 36.7–36.8; O2SAT 94–95
[2019-07-25 00:41] LABS: Bedside Glucose 183 mg/dL (70-110)
[2019-07-25] MEDS: 0.9% Normal Saline 1,000 ML 75 ML IV (04:22)
[2019-07-25] MEDS: Levothyroxine 100 MCG Tablet 200 MCG PO (05:50)
[2019-07-25] MEDS: Acetaminophen 325 MG Tablet 650 MG PO (05:50)
[2019-07-25] MEDS: Insulin Lispro 100 UNIT/ML INSULN.PEN SC (06:52)
[2019-07-25 07:03] LABS: Absolute Neutrophil Count 5.4 X10^3/uL (2.0-7.7); Basophil# 0.04 X10^3/uL; Basophil% 0.5 % (0-1); Eosinophil# 0.19 X10^3/uL; Eosinophils% 2.6 % (0-5); Hematocrit 33.8 % (37-47); Hemoglobin 10.9 g/dL (12.0-15.0); Lymphocyte % 17.6 % (19-41); Mean Corp Hgb Conc 32.2 g/dL (32-36); Mean Corpuscular Hgb 27.9 pg (27.0-32.0); Mean Corpuscular Volume 86.7 fL (81-99); Mean Platelet Vol. 9.3 fl (6.2-12.0); Monocyte% 5.4 % (0-10); NRBC Flagged by Analyzer 0 % (0-5); Neutrophil # 5.41 X10^3/uL (2.7-7.7); Neutrophil % 73.4 % (47-70); Platelet Count 223 K/mm3 (150-450); RBC Distribution Width CV 14.6 % (11.6-14.6); RBC Distribution Width SD 45.9 fl (35.1-43.9); White Blood Count 7.4 K/mm3 (4.4-11.0)
[2019-07-25 07:05] LABS: Bedside Glucose 182 mg/dL (70-110)
[2019-07-25 07:24] LABS: Anion Gap 7 (5-15); BUN 17 mg/dL (7-18); BUN/Creat Ratio 12.7 RATIO (10-20); Calcium,Total 8.8 mg/dL (8.5-10.1); Chloride 104 mmol/L (98-107); Creatinine, Serum 1.34 mg/dL (0.55-1.02); EST Glomerular Filtration Rate 41 mL/min (>60); Est Glom Filt Rate - Afr Amer 49 mL/min (>60); Estimated Creatinine Clearance 31.13 ml/min; Glucose 197 mg/dL (74-106); Potassium 4.3 mmol/L (3.5-5.1); Sodium Level 138 mmol/L (136-145)
[2019-07-25] MEDS: oxyCODONE 5 MG Tablet PO (09:33)
[2019-07-25] MEDS: Clopidogrel Bisulfate 75 MG Tablet PO (09:37)
[2019-07-25] MEDS: Citalopram 40 MG TABLET PO (09:38)
[2019-07-25] MEDS: Losartan Potassium 50 MG Tablet PO (09:39)
[2019-07-25] MEDS: hydroCHLOROthiazide 25 MG Tablet PO (09:39)
[2019-07-25] MEDS: Metoprolol Tartrate 100 MG Tablet PO (09:39)
[2019-07-25] MEDS: Pantoprazole Sodium 20 MG Tablet PO (09:39)
[2019-07-25] MEDS: amLODIPine 5 MG Tablet PO (09:40)
[2019-07-25] MEDS: Heparin Injection (Vial) 5,000 UNIT/ML VIAL 5000 UNIT SC (09:41)
[2019-07-25] MEDS: ALPRAZolam 0.5 MG Tablet PO (10:19)
--- NOTE | 2019-07-25 12:35 | DCINST_ITS ---
You will use the following diet at home:: No restrictions Your food should be the consistency of: Regular Your liquids should be the consistency of: Regular/Thin Discharge Activity: Return to Normal Activity Call your doctor if you observe: - - syncope Allergies/Adverse Reactions: Allergies naproxen [From Naprosyn] Allergy (Verified 07/24/19 15:31) Hives Penicillins [PCN] Allergy (Verified 07/24/19 15:31) Hives guaifenesin [From Mucinex] Adverse Reaction (Verified 07/24/19 15:31) Unknown ketoprofen Adverse Reaction (Verified 07/24/19 15:31) Unknown loracarbef [From Lorabid] Adverse Reaction (Verified 07/24/19 15:31) Unknown bee sting Adverse Reaction (Uncoded 07/24/19 15:31) Unknown Medications to take at Discharge Amlodipine Besylate 5 mg PO DAILY 08/09/13 Citalopram Hydrobromide [Citalopram HBr] 40 mg PO DAILY 08/09/13 Clopidogrel Bisulfate [Clopidogrel] 75 mg PO DAILY 08/09/13 Hydrochlorothiazide 25 mg PO DAILY 08/09/13 Metformin HCl [Metformin HCl ER] 500 mg PO BID 08/09/13 Metoprolol Tartrate [Lopressor (beta mert)] 100 mg PO DAILY 08/09/13 Omeprazole 20 mg PO DAILY 08/09/13 Losartan Potassium [Cozaar] 50 mg PO DAILY 10/22/16 Levothyroxine [Synthroid] 200 mcg PO DAILY 02/06/18 Rosuvastatin Calcium 5 mg PO DAILY 07/16/18 ALPRAZolam [Xanax] 0.5 mg PO BID PRN PRN 10/22/18 Primary Care Physician: Doris Navarro DO [Primary Care Provider] - Within 1 Week Test Results: Test results from this visit will be discussed in further detail at your follow- up appointment, if applicable. Proposed Discharge Date: 07/25/19
--- NOTE | 2019-07-25 12:36 | PCM.DC.SUM ---
Discharge Date and Diagnosis Date of Admission: 07/24/19 Date of Discharge: 07/25/19 - Primary Discharge Diagnosis Concussion Mechanical fall - Secondary Discharge Diagnosis Chronic Problems CKD (chronic kidney disease) stage 3, GFR 30-59 ml/min (Chronic) Esophageal reflux (Chronic) History of pancreatitis (Chronic) History of abdominal pain (Chronic) Type 2 diabetes mellitus (Chronic) Obesity (Chronic) Hypothyroidism (Chronic) CVA (cerebral vascular accident) (Chronic) Hypertension (Chronic) Hospital Course and Treatment Operations: None Procedures: None Summary of Care Provided: The patient is a 79 year old F who got up from laying on the couch and was walking through her dining room where the patient does not recall the events but had apparently fallen backwards, hitting her head against a wall and then a large plastic clock hit her on the head. Patient has no recollection of that event. Patient came to quickly and then then was able to call for help. Patient has not had other falls at home other than, 10 months ago, she tripped on a crack and had fallen at that time. Patient is unaware if she had tripped over anything but has been feeling fine otherwise. Patient had initial head CT that showed no acute process, monitored on telemetry that showed no acute process and had an echocardiogram that was unremarkable. Given the circumstances, it is my feeling the patient likely did not have a syncopal episode or a near syncopal episodes, did not have a seizure, did not have an arrhythmia but rather had a mechanical fall in which she struck her head and probably had a concussion. Unfortunately there were no witnesses to corroborate that these events but being that patient has never had a seizure before has never had any arrhythmia and came to rather quickly excludes many other diagnoses. Patient advised to return to the hospital if any similar events occur in the future. Case discussed with the patient's at bedside. [] - Physical Exam Vitals/I&O's: Vital Signs Temp Pulse Resp BP Pulse Ox 36.8 C 95 19 H 164/108 H 95 07/25/19 09:31 07/25/19 09:39 07/25/19 09:31 07/25/19 09:31 07/25/19 09:31 Oxygen Delivery Method Room Air Weight: 98.1 kg Body Mass Index (BMI) 35.9 Finger Stick Blood Glucose 152 Intake and Output for Last 24 Hours 07/23/19 07/24/19 07/25/19 23:59 23:59 23:59 Intake Total 417.5 / 417.5 707.5 / 707.5 Output Total 100 / 100 Balance 417.5 / 417.5 607.5 / 607.5 General: Alert, No apparent distress HEENT: Atraumatic, Normocephalic Psych/Mental Status: Normal Affect, Appropriate Laboratory Results 07/24/19 15:40: WBC 9.0, RBC 4.29, Hgb 11.9 L, Hct 37.4, MCV 87.2, MCH 27.7, MCHC 31.8 L, RDW Std Deviation 46.5 H, RDW Coeff of Juanito 14.6, Plt Count 281, MPV 9.6, Immature Gran % (Auto) 1.000 H, Neut % (Auto) 69.6, Lymph % (Auto) 20.8, Izard % (Auto) 5.4, Eos % (Auto) 2.6, Baso % (Auto) 0.6, Absolute Neuts (auto) 6.3, Absolute Lymphs (auto) 1.86, Nucleated RBC % 0 07/24/19 15:40: Sodium 136, Potassium 4.1, Chloride 100, Carbon Dioxide 28.0, Anion Gap 8, BUN 19 H, Creatinine 1.48 H, Estim Creat Clear Calc 28.19, Est GFR (MDRD) Af Amer 44 L, Est GFR (MDRD) Non-Af 36 L, BUN/Creatinine Ratio 12.8, Glucose 243 H, Calcium 9.2, Troponin I < 0.015 07/24/19 17:52: POC Glucose 174 H 07/24/19 22:53: POC Glucose 183 H 07/25/19 06:45: WBC 7.4, RBC 3.90 L, Hgb 10.9 L, Hct 33.8 L, MCV 86.7, MCH 27.9, MCHC 32.2, RDW Std Deviation 45.9 H, RDW Coeff of Juanito 14.6, Plt Count 223, MPV 9.3, Immature Gran % (Auto) 0.500, Neut % (Auto) 73.4 H, Lymph % (Auto) 17.6 L, Izard % (Auto) 5.4, Eos % (Auto) 2.6, Baso % (Auto) 0.5, Absolute Neuts (auto) 5.4, Absolute Lymphs (auto) 1.30, Nucleated RBC % 0 07/25/19 06:45: Sodium 138, Potassium 4.3, Chloride 104, Carbon Dioxide 27.0, Anion Gap 7, BUN 17, Creatinine 1.34 H, Estim Creat Clear Calc 31.13, Est GFR (MDRD) Af Amer 49 L, Est GFR (MDRD) Non-Af 41 L, BUN/Creatinine Ratio 12.7, Glucose 197 H, Calcium 8.8 07/25/19 06:49: POC Glucose 182 H Current Medications Acetaminophen (Tylenol) 650 mg PO Q6H PRN PRN PRN Reason: Fever, headache, pain Last Admin: 07/25/19 05:50 Dose: 650 mg Documented by: Amlodipine Besylate (Norvasc) 5 mg PO DAILY [facility] Last Admin: 07/25/19 09:40 Dose: 5 mg Documented by: Atorvastatin Calcium (Lipitor) 10 mg PO QHS [facility] Last Admin: 07/24/19 23:00 Dose: 10 mg Documented by: Citalopram Hydrobromide (Celexa) 40 mg PO DAILY [facility] Last Admin: 07/25/19 09:38 Dose: 40 mg Documented by: Clopidogrel Bisulfate (Plavix) 75 mg PO DAILY [facility] Last Admin: 07/25/19 09:37 Dose: 75 mg Documented by: Glucagon () 1 mg IM .X1 PRN PRN Reason: Hypoglycemia Heparin Sodium (Porcine) (Heparin Na) 5,000 unit SC Q12 [facility] Last Admin: 07/25/19 09:41 Dose: 5,000 unit Documented by: Hydrochlorothiazide (Hctz) 25 mg PO DAILY [facility] Last Admin: 07/25/19 09:39 Dose: 25 mg Documented by: Sodium Chloride () 1,000 mls @ 75 mls/hr IV .[id number] [facility] Last Admin: 07/25/19 04:22 Dose: 75 mls/hr Documented by: Dextrose (Dextrose 10%-Water) 250 mls @ 999 mls/hr IV .Q16M PRN; Protocol PRN Reason: HYPOGLYCEMIA Insulin Human Lispro (Humalog Kwikpen (Bkc)) 0 unit SC ACHS [facility]; Protocol Last Admin: 07/25/19 06:52 Dose: 2 u Documented by: Levothyroxine Sodium (Synthroid) 200 mcg PO DAILY@0600 [facility] Last Admin: 07/25/19 05:50 Dose: 200 mcg Documented by: Losartan Potassium (Cozaar) 50 mg PO DAILY [facility] Last Admin: 07/25/19 09:39 Dose: 50 mg Documented by: Metoprolol Tartrate (Lopressor (Beta Emiliano)) 100 mg PO DAILY [facility] Last Admin: 07/25/19 09:39 Dose: 100 mg Documented by: Oxycodone HCl (Oxyir) 5 mg PO Q6H PRN PRN PRN Reason: Pain Score 1-1010 Last Admin: 07/25/19 09:33 Dose: 5 mg Documented by: Pantoprazole Sodium (Protonix) 20 mg PO DAILY [facility] Last Admin: 07/25/19 09:39 Dose: 20 mg Documented by: Sodium Chloride () 10 - 40 ml IV UD PRN PRN Reason: SALINE FLUSH Discharge Diet: No Restrictions Discharge Activity: Return to Normal Activity Call your doctor if you observe: - - syncope Home Medications: Medications to take at Discharge Amlodipine Besylate 5 mg PO DAILY 08/09/13 Citalopram Hydrobromide [Citalopram HBr] 40 mg PO DAILY 08/09/13 Clopidogrel Bisulfate [Clopidogrel] 75 mg PO DAILY 08/09/13 Hydrochlorothiazide 25 mg PO DAILY 08/09/13 Metformin HCl [Metformin HCl ER] 500 mg PO BID 08/09/13 Metoprolol Tartrate [Lopressor (beta emiliano)] 100 mg PO DAILY 08/09/13 Omeprazole 20 mg PO DAILY 08/09/13 Losartan Potassium [Cozaar] 50 mg PO DAILY 10/22/16 Levothyroxine [Synthroid] 200 mcg PO DAILY 02/06/18 Rosuvastatin Calcium 5 mg PO DAILY 07/16/18 ALPRAZolam [Xanax] 0.5 mg PO BID PRN PRN 10/22/18 Primary Care Physician: Doris Navarro DO [Primary Care Provider] - Within 1 Week Disposition: Home Minutes spent on discharge:: 35 Patient Condition:: Good Medical Necessity - Tobacco Use Smoking Status: Never smoker Meaningful Use Info Meaningful Use Diagnoses (Choose all that apply): None applicable Code Visit OBSV E&M: 60112 Observation care discharge
[2019-07-25 12:51] LABS: Bedside Glucose 190 mg/dL (70-110)
== END 2019-07-25 12:36 | disposition home or self-care (01) ==
LOC: ED 16:24 → PCU 19:23
PROVIDERS: Admitting Provider Family Medicine; Emergency Provider Emergency Medicine; Family Provider Internal Medicine; PCP Internal Medicine
DX: S06.0X9A Concussion with loss of consciousness of unspecified duration, initial encounter (principal); W18.39XA Other fall on same level, initial encounter; Y93.01 Activity, walking, marching and hiking; Y92.008 Other place in unspecified non-institutional (private) residence as the place of occurrence of the external cause; E11.22 Type 2 diabetes mellitus with diabetic chronic kidney disease; I12.9 Hypertensive chronic kidney disease with stage 1 through stage 4 chronic kidney disease, or unspecified chronic kidney disease; N18.3 Chronic kidney disease, stage 3 (moderate); G89.29 Other chronic pain; K21.9 Gastro-esophageal reflux disease without esophagitis; E03.9 Hypothyroidism, unspecified; E66.9 Obesity, unspecified; Z68.36 Body mass index [BMI] 36.0-36.9, adult; Z71.3 Dietary counseling and surveillance; Z79.899 Other long term (current) drug therapy; Z79.02 Long term (current) use of antithrombotics/antiplatelets; Z79.84 Long term (current) use of oral hypoglycemic drugs; Z86.73 Personal history of transient ischemic attack (TIA), and cerebral infarction without residual deficits; F41.9 Anxiety disorder, unspecified; F32.9 Major depressive disorder, single episode, unspecified; E78.5 Hyperlipidemia, unspecified
CPT/HCPCS: 36415; 70450; 72100; 80048; 82962; 84484; 85025; 93005; 93306; 96361; 96372; 96374; 96375; 97161; 97165; 99218; 99285; J7030; Q9957; A4216; C8929; G0378; J2405

== ENCOUNTER → 2019-08-11 15:22 | Outpatient (CLI) | payer MEDICARE, SELFPAY ==
[2019-07-24 17:34] VITALS: BMI 35.9
--- NOTE | 2019-08-11 | IMM_PTH ---
PATIENT: NITZA GRIGSBY LOC: [facility] U#:[id number] AGE/SX: 85/F ROOM: RE08/11/[address]: Dr. Johnnie Morales MD : 1940 BED: DIS: SPEC #: [id number] RECD: 08/13/19 12:26 STATUS: ALEYDA REQ #: [id number] CALIN: 08/11/19 00:[address]: Johnnie Morales DEPT: IMMUNOHISTOCHEMISTRY RECD BY: Rosibel Christensen ENTERED: 08/13/19 12:28 SP TYPE: IMMUNO OTHR DR: Dr. Doris Navarro DO Tissues: Vertebra, NOS Procedures: CD20 (add) CD3 (add) CD45 (add) CD5 (add) CD79A (add) CK8 (add) Pankeratin (initial) PHYSICIAN & INSTITUTION [place] [id number] SPECIMEN INFORMATION: Tissue Source: Bone L2 Clinical Info: Closed fracture lumbar vertebral wedge Specimen Number: [id number] CPT code: 65246, 18644 x6 METHODOLOGY: Deparaffinized sections of prefer/formalin-fixed tissue or PAP/DQ stained slides are incubated with monoclonal/polyclonal antibodies/oligonucleotide probes. Localization is made via biotin free immunoperoxidase method. Appropriate controls are performed and reacted as expected. Results on target cell population are indicated in the following table: RESULTS: ANTIBODY / CLONE RESULT AE1-3 (AE1/AE3/PCK26) negative CK8 (03vnqsL90) negative CD45 (RP2/18) positive CD3 (PS1) positive CD20 (L26) positive CD79a (11E3) positive CD5 (SP10) positive These tests were developed and their performance characteristics determined by [facility]. They may not have been cleared or approved by the U.[place]. Food and Drug Administration. The FDA has determined that such clearance or approval is not necessary. The above immunohistochemical/dualISH markers are ordered and reviewed by the Pathologist. INTERPRETATION: Bone L2, excision: Chronic inflammation. Negative for malignancy. SJ:edita 08/13/19
--- NOTE | 2019-08-11 12:44 | BON_PTH ---
PATIENT: NITZA GRIGSBY LOC: [facility] U#:[id number] AGE/SX: 85/F ROOM: RE08/11/[address]: Dr. Johnnie Morales MD : 1940 BED: DIS: SPEC #: [id number] RECD: 08/11/19 15:14 STATUS: ALEYDA REJacky #: [id number] CALIN: 08/11/19 12:[address]: Johnnie Morales DEPT: SURGICAL PATHOLOGY RECD BY: Shane Pagan ENTERED: 08/12/19 08:35 SP TYPE: Bone OTHR DR: Dr. Doris Navarro, [facility] Tissues: Vertebra, NOS Procedures: Decalcification bone/plaque Surgery Specimen Level IV HEADER OPERATION: Kyphoplasty at L2 PRE-OP DIAGNOSIS: Closed fracture lumbar vertebra wedge TISSUE SUBMITTED: Bone L2 MICROSCOPIC DIAGNOSIS Bone L2: A piece of bone with reactive changes and changes consistent with callous formation. Chronic inflammation. Negative for malignancy. See comment. NURIA:edita 08/13/19 COMMENT Immunohistochemistry ([id number]) supports the above diagnosis. Case has been reviewed in consultation with Dr. Parra who concurs with the above diagnosis. IDC:AM MICROSCOPIC DESCRIPTION Slides are reviewed. GROSS DESCRIPTION Received is one container labeled with the patient's name and not further designated. The specimen consists of an elongated piece of bowman bone measuring 1 cm in length and 0.2 cm in diameter. The specimen is totally submitted in one cassette after short decalcification. / NURIA:edita 08/12/19 TC:5 CPT: 42146, 80517
== END ==
PROVIDERS: Family Provider Internal Medicine; PCP Internal Medicine; Referring Provider Anesthesiology Pain Medicine; Visit Provider Anesthesiology Pain Medicine
DX: S32.000A Wedge compression fracture of unspecified lumbar vertebra, initial encounter for closed fracture (principal)
CPT/HCPCS: 88305; 88311; 88341; 88342

== ENCOUNTER 2019-09-12 05:52 | Emergency (ER) | payer MEDICARE, SELFPAY ==
[2019-07-24 17:34] VITALS: BMI 35.9
[2019-09-12 05:53] VITALS: BP 169/78; PULSE 94; RESP 16; TEMP 36.6; O2SAT 99; BMI 33.5
--- NOTE | 2019-09-12 06:06 | CT_ITS ---
STUDY: CT ABDOMEN AND PELVIS WITHOUT CONTRAST REASON FOR EXAM: Female, 79 years old. CONSTIPATION X 2 DAYS AND RECTAL PAIN. RADIATION DOSAGE (If Supplied By Facility): CTDIvol = ( 18.22 ) mGy, DLP = ( 1271.85 ) mGycm TECHNIQUE: Transaxial 2.5 mm images were obtained from the dome of the diaphragm to the symphysis pubis without oral contrast, and without intravenous contrast. Sagittal and coronal images were reconstructed. Additional images through liver and rectum obtained due to motion. This examination is limited for the evaluation of gastrointestinal, solid organs and vascular structures due to the lack of intravenous and oral contrast. There is obesity, the entirety of soft tissue is not imaged. Individualized dose optimization techniques were used for this CT. COMPARISON: CT abdomen pelvis 08/31/2018. 03/03/2017. 02/05/2010. FINDINGS: The visualized lung bases are unremarkable. The visualized portions of the heart are within normal limits. There is stable decreased attenuation of the enlarged liver consistent with steatosis. Absent gallbladder and normal extrahepatic biliary system. There are multiple benign calcified granulomata of the spleen and liver. There is stable fat deposition in the pancreas. Normal bilateral adrenal glands. Bilateral stable renal cortical thinning, mild perirenal stranding, lateral peripelvic cysts and an exophytic right upper renal pole cyst. There is no obstructive uropathy, obstructive renal or ureteral calculi. Limited gastrointestinal assessment. There is a stable small hiatal hernia. Normal small intestine. Normal colon. There is non-visualization of the appendix. There is stable atherosclerotic calcification of the abdominal aorta, without a demonstrated aneurysm. Normal inferior vena cava. Normal retroperitoneum. Normal urinary bladder. There is stable absence of the uterus consistent with a prior hysterectomy. There are stable bilateral inguinal hernia containing adipose tissue. There are diffuse degenerative changes of the visualized lumbar spine and interval vertebroplasty L2. CT/Abdomen/Pelvis without Cont IMPRESSION: There is no ascites, arthritis, hydronephrosis abscess, collection, perforation or obstruction. No significant amount of retained fecal material. Stable hepatomegaly, hepatic steatosis, cholecystectomy, hysterectomy, remote granulomatous exposure, fat position into the pancreas, renal cyst, hiatal hernia, inguinal hernia, atherosclerosis and degenerative changes. Electronically Signed: Liliana Barnes MD at 7:02 EST , Service support ,
[2019-09-12] MEDS: Morphine 4 MG/ML Syringe IV (06:19)
[2019-09-12] MEDS: Ondansetron 4 MG/2 ML Vial IV (06:19)
[2019-09-12 06:28] LABS: Basophil# 0.05 X10^3/uL; Basophil% 0.6 % (0-1); Eosinophil# 0.16 X10^3/uL; Hematocrit 38.2 % (37-47); Hemoglobin 12.2 g/dL (12.0-15.0); Lymphocyte % 17.4 % (19-41); Mean Corp Hgb Conc 31.9 g/dL (32-36); Mean Corpuscular Volume 87.6 fL (81-99); Mean Platelet Vol. 8.9 fl (6.2-12.0); Monocyte# 0.44 X10^3/uL; Monocyte% 5.5 % (0-10); NRBC Flagged by Analyzer 0 % (0-5); Neutrophil # 5.96 X10^3/uL (2.7-7.7); Neutrophil % 73.9 % (47-70); Platelet Count 282 K/mm3 (150-450); RBC Distribution Width CV 14.6 % (11.6-14.6); RBC Distribution Width SD 46.6 fl (35.1-43.9); Red Blood Count 4.36 M/mm3 (4.2-5.4); White Blood Count 8.1 K/mm3 (4.4-11.0)
[2019-09-12 06:44] LABS: ALB/GLOB Ratio 1.1 RATIO (0.9-2.4); AST(SGOT) 20 U/L (15-37); Alanine Aminotransfer ALT/SGPT 23 U/L (13-56); Albumin, Serum 4.3 g/dL (3.2-5.0); Alkaline Phosphatase 138 U/L (45-117); Anion Gap 11 (5-15); BUN 18 mg/dL (7-18); BUN/Creat Ratio 11.5 RATIO (10-20); Calcium,Total 9.8 mg/dL (8.5-10.1); Chloride 102 mmol/L (98-107); Creatinine, Serum 1.56 mg/dL (0.55-1.02); EST Glomerular Filtration Rate 34 mL/min (>60); Est Glom Filt Rate - Afr Amer 41 mL/min (>60); Estimated Creatinine Clearance 26.74 ml/min; Glucose 165 mg/dL (74-106); Lipase 39 U/L (73-393); Potassium 3.9 mmol/L (3.5-5.1); Protein, Total 8.3 g/dL (6.4-8.2); Sodium Level 137 mmol/L (136-145)
[2019-09-12] MEDS: 0.9% Normal Saline 1,000 ML 125 ML IV (06:44)
--- NOTE | 2019-09-12 06:52 | ED.VISSUMM ---
- ER Visit Summary Date of Service: 09/12/19 Chief Complaint: Abdominal pain History of Present Illness: The patient is a [address] Navarro and Dr. Peralta. She reports that she has abdominal pain that began approximately 1 week ago. Says sharp continuous pain is 10 at 10 at worst 9-10 currently. Is worsened by movement or standing. Nothing makes this better. She denies any nausea or vomiting. She reports that she is constipated. Her last bowel was 2 days ago. Typically she goes every other day. She denies any dysuria or frequency. Patient denies any fever or chills. No chest pain or shortness of breath. No cough. Physical Examination: Vitals: Stable. Afebrile. General: Well-nourished and well-developed. Head: Normocephalic atraumatic. Neck: Supple, no lymphadenopathy. No JVD. Nontender. Cardiovascular: Regular rate and rhythm. No murmurs. Respiratory: No respiratory distress. Clear to auscultation bilaterally. Abdominal: Soft, moderate epigastric tenderness to palpation, nondistended, normal bowel sounds. No guarding, rebound, or peritoneal signs. Back: Nontender. Extremities: Nontender, no edema. Skin: Normal color, no rash. Neurologic: Alert and oriented ?3. Cranial nerves II through XII are intact. Normal strength and sensation. Psych: Normal affect. Test Results: CBC shows segmented neutrophils 74 lymphocytes 17. Chem-7 shows a glucose of 165 and creatinine 1.56. LFTs show total protein of 8.3 and alk phos of 138. Lipase is 39. Clinical Impression(s) from Imaging Studies Abdomen/Pelvis CT 09/12/19 06:06 IMPRESSION: There is no ascites, arthritis, hydronephrosis abscess, collection, perforation or obstruction. No significant amount of retained fecal material. Stable hepatomegaly, hepatic steatosis, cholecystectomy, hysterectomy, remote granulomatous exposure, fat position into the pancreas, renal cyst, hiatal hernia, inguinal hernia, atherosclerosis and degenerative changes. Electronically Signed: Liliana Barnes MD at 7:02 EST , Service support , Emergency Department Course and Treatment: Patient was treated with morphine and Zofran IV. She was given a single oxycodone p.o. Treatment Plan: At this point patient reports that she no longer has abdominal pain. She just has back pain that she is seeing Dr. Peralta for. She already has Percocet and Ultram at home. She is instructed to continue these and follow-up Dr. Peralta as previously scheduled. Did discuss with her about following up with Dr. Saunders to get a colonoscopy as she has not had one for the past 5 years. Return to the emergency department for any worsening symptoms. Disposition: To home in improved and stable condition. Impression: 1. Abdominal pain, resolved. 2. Back pain, chronic. This note was generated with [employer] software. It may contain incorrect words, spelling, and punctuation that were not noted in review of the chart prior to signing ED Disposition - Plan for ED Patient: Instructions: ABDOMINAL PAIN, Unknown Cause, (Female) Referrals: Constantine Saunders MD [NON-STAFF] - 1-2 Weeks Joey Peralta [NON-STAFF] - Keep Jamilah appointment
[2019-09-12] MEDS: oxyCODONE 5 MG Tablet PO (07:48)
[2019-09-12 07:51] VITALS: BP 154/77; PULSE 88; RESP 16; O2SAT 99
--- NOTE | 2019-09-12 07:52 | ED.RN ---
IV DC'ED, CATHETER INTACT, SMALL GAUZE DRESSING PLACED. DISCHARGE INSTRUCTIONS GIVEN TO AND REVIEWED WITH PATIENT, PATIENT DENIES QUESTIONS OR CONCERNS AND VOICES UNDERSTANDING OF DISCHARGE INSTRUCTIONS. PT TO PRIVATE VEHICLE VIA WHEELCHAIR.
== END 2019-09-12 07:52 | disposition home or self-care (01) ==
PROVIDERS: Emergency Provider Emergency Medicine; PCP Internal Medicine
DX: R10.9 Unspecified abdominal pain (principal); M54.9 Dorsalgia, unspecified; Z79.01 Long term (current) use of anticoagulants; Z79.899 Other long term (current) drug therapy; Z79.84 Long term (current) use of oral hypoglycemic drugs; N18.9 Chronic kidney disease, unspecified; E11.22 Type 2 diabetes mellitus with diabetic chronic kidney disease; I12.0 Hypertensive chronic kidney disease with stage 5 chronic kidney disease or end stage renal disease; K21.9 Gastro-esophageal reflux disease without esophagitis; E03.9 Hypothyroidism, unspecified; Z86.73 Personal history of transient ischemic attack (TIA), and cerebral infarction without residual deficits
CPT/HCPCS: 74176; 80053; 83690; 85025; 96361; 96374; 96375; 99283; J7030; A4216; J2405

== ENCOUNTER 2019-10-05 18:53 | Emergency (ER) | payer MEDICARE, SELFPAY ==
[2019-10-05 18:55] VITALS: BP 159/72; PULSE 71; RESP 18; TEMP 37.3; O2SAT 92; BMI 33.1
--- NOTE | 2019-10-05 18:57 | CT_ITS ---
STUDY: CT CERVICAL SPINE WITHOUT CONTRAST REASON FOR EXAM: Female, 79 years old. FALL LAC TO BACK OF HEAD, NO LOC, ON THINNERS. H/O CVA, HTN, DIABETES, CKD AND HYPOTHYROID RADIATION DOSAGE (If Supplied By Facility): CTDIvol = ( 27.59 ) mGy, DLP = ( 514.91 ) mGycm TECHNIQUE: High resolution transaxial imaging was performed without contrast material. Sagittal and coronal images were reconstructed. Individualized dose optimization techniques were used for this CT. COMPARISON: None FINDINGS: Normal craniovertebral junction. Normal anterior atlantoaxial articulation. Normal odontoid process. Straightening of the cervical lordosis. Normal vertebral bodies and posterior osseous elements. C2-3: Normal endplates. Normal disc height and morphology. Normal central canal and intervertebral neuroforamina. C3-4: Normal endplates. Normal disc height and morphology. Normal central canal and intervertebral neuroforamina. C4-5: Normal endplates. Normal disc height and morphology. Normal central canal and intervertebral neuroforamina. C5-6: Spurring at the endplates. Slightly narrowed disc height. Normal central canal. Uncovertebral spurring narrowing the intervertebral neuroforamina, right more than left. C6-7: Spurring at the endplates. Slightly narrowed disc height. Normal central canal and intervertebral neuroforamina. C7-T1: Normal endplates. Normal disc height and morphology. Normal central canal and intervertebral neuroforamina. Normal visualized soft tissue structures. CT/Spine Cervical without Contras IMPRESSION: Mild degenerative changes of the cervical spine. Electronically Signed: Félix Denson DO at 20:24 EDT Tel [phone], Service support ,
--- NOTE | 2019-10-05 18:57 | CT_ITS ---
STUDY: CT BRAIN WITHOUT CONTRAST REASON FOR EXAM: Female, 79 years old. FALL LAC TO BACK OF HEAD, NO LOC, ON THINNERS. H/O CVA, HTN, DIABETES, CKD AND HYPOTHYROID RADIATION DOSAGE (If Supplied By Facility): CTDIvol = ( 44.99 ) mGy, DLP = ( 846.73 ) mGycm TECHNIQUE: Transaxial CT imaging of the brain was performed without administration of intravenous contrast material. Individualized dose optimization techniques were used for this CT. COMPARISON: Noncontrast CT brain July 24, 2019. FINDINGS: A dressing is seen overlying probable laceration of the right occipital scalp. There is minor underlying swelling and a few gas bubbles, as well as a 1.4 x 0.85 x 1.1 cm calcific density of indeterminate etiology in the midline occipital scalp. This calcific density was not present on previous exam. Normal calvarium. There are atherosclerotic calcifications in the distal internal carotid and vertebral arteries. There is mild cerebral atrophy with widening of the extra-axial spaces and ventricular dilatation. There are areas of decreased attenuation within the white matter tracts of the supratentorial brain, consistent with microvascular disease changes. Normal basal ganglia and thalami. Normal brainstem. Normal cerebellum. There is no intracranial hemorrhage. There are no findings of an acute ischemic infarction. Normal visualized paranasal sinuses. CT/Brain/Head without Contrast IMPRESSION: 1. Laceration of the parieto-occipital scalp. No acute intracranial injury. 1.4 cm calcific density of indeterminate etiology is seen in the midline occipital scalp, not present on prior study of June 2019. 2. Chronic involutional and microvascular ischemic changes of the brain again noted. Electronically Signed: Leopoldo Soni MD at 19:40 EDT , Service support ,
--- NOTE | 2019-10-05 19:20 | ED.VIS.GEN ---
History of Present Illness Chief Complaint: Fall Informant: Patient Onset: Today Context: Sudden Onset Timing: Continuous Current Severity: Moderate Maximum Severity: Moderate Narrative: The patient is a 79-year-old female who presents to the emergency department after mechanical fall. She was walking upstairs at a restaurant. She lost her balance and fell backwards. She did strike her head, but denies any loss of consciousness. She had some bleeding on the posterior scalp. She states she also landed on her buttocks and is complaining of bilateral hip pain. The patient is on Plavix. She denies any nausea or vomiting. She denies any visual change. She is otherwise been in her normal state of health. Prior similar symptoms: Yes Recent Illness/Hospitalization: No Past Medical History - Allergies and Home Meds Allergies/Adverse Reactions: Allergies naproxen [From Naprosyn] Allergy (Verified 10/05/19 18:59) Hives Penicillins [PCN] Allergy (Verified 10/05/19 18:59) Hives guaifenesin [From Mucinex] Adverse Reaction (Verified 10/05/19 18:59) Unknown ketoprofen Adverse Reaction (Verified 10/05/19 18:59) Unknown loracarbef [From Lorabid] Adverse Reaction (Verified 10/05/19 18:59) Unknown bee sting Adverse Reaction (Uncoded 10/05/19 18:59) Unknown Primary Care Physician: Doris Navarro DO [Primary Care Provider] - Prior records reviewed: Yes Past Medical History: - - Coronary vascular disease, hypertension, hyperlipidemia Surgical History: - - Appendectomy, cholecystectomy, tonsillectomy, hysterectomy. Smoking Status: Never smoker - Family History Maternal Family History: Reports: Diabetes, Heart Disease, Hypertension Paternal Family History: Reports: Diabetes, Heart Disease, Hypertension Review of Systems General: Denies: Chills, Fever, Sweats Eyes: Denies: Visual changes - bilaterally, Diplopia ENT: Denies: Rhinorrhea, Sore throat Cardiovascular: Denies: Chest pain, Palpitations Respiratory: Denies: Dyspnea, Cough, Dyspnea on exertion Gastrointestinal: Denies: Abdominal pain, Nausea, Vomiting, Diarrhea, Melena, Hematochezia Genitourinary: Denies: Dysuria, Hematuria, Frequency Musculoskeletal: Denies: Back pain, Extremity Pain Skin: Denies: Rash, Wounds Neurological: Denies: Headache, Weakness, Numbness Physical Exam Vital Signs/Narrative: Vital Signs Temp Pulse Resp BP Pulse Ox 10/05/19 18:55 99.1 F 71 18 159/72 H 92 Inital Vital Signs reviewed: Yes General: Well nourished, Well developed, No Acute Distress Head: Normocephalic, Trauma - Posterior C-shaped laceration just to the left of the midline of the occiput. No active bleeding. No step-off. Eyes: Perrl, EOMI ENT: Moist mucous membranes, No rhinorrhea Neck: Supple, Nontender Cardiovascular: Regular rate, Regular rhythm, No murmurs Respiratory: No distress, CTA bilaterally, Chest nontender Abdomen: Soft, Nontender, Nondistended, Normal bowel sounds Back: Nontender, Normal Inspection Extremities: Nontender, No edema Skin: Normal color, No rash Neurological: Alert, Oriented x3, Cranial nerves II-XII grossly intact, Normal Strength, Normal Sensation Psychological: Normal affect, Normal Mood Diagnostic/Tx/Re-eval Clinical Impression(s) from Imaging Studies Brain CT 10/05/19 18:57 IMPRESSION: 1. Laceration of the parieto-occipital scalp. No acute intracranial injury. 1.4 cm calcific density of indeterminate etiology is seen in the midline occipital scalp, not present on prior study of June 2019. 2. Chronic involutional and microvascular ischemic changes of the brain again noted. Electronically Signed: Leopoldo Soni MD at 19:40 EDT , Service support , Cervical Spine CT 10/05/19 18:57 IMPRESSION: Mild degenerative changes of the cervical spine. Electronically Signed: Félix Denson DO at 20:24 EDT Tel [phone], Service support , Hip/Pelvis X-Ray 10/05/19 19:30 IMPRESSION: Normal x-ray examination of the pelvis and bilateral hips. Electronically Signed: Félix Denson DO at 20:26 EDT Tel [phone], Service support , - Medical Decision Making The patient presents after mechanical fall striking her head. She is on Plavix. She does have a scalp laceration with evidence of foreign body. Given the fact she is on anticoagulants, the patient underwent head CT, CT of the C-spine, and x-rays of the hips and pelvis. There was no evidence of acute intracranial abnormality. There is no evidence of fracture. The wound itself was addressed. It was anesthetized with 4 cc of lidocaine with epinephrine 1%. There was a large landscape stone in the central aspect of the laceration. This was removed in pieces with forceps. The wound was reirrigated, and I removed more foreign debris. The wound was reexamined and I cannot see any more evidence of foreign body. It was closed with 3 batool. The patient was given oral analgesics. She was able to ambulate with a walker and felt comfortable. Given the foreign body, I did mental health counselor the patient on local wound care and that this needs to be watched closely due to concern for small particulate matter that was not able to be irrigated out. They are comfortable with this plan of care. The patient will be discharged home. Impression 1. Mechanical fall 2. Scalp laceration with foreign body removal and staple closure ED Disposition - Plan for ED Patient: Instructions: FALL, Mechanical Referrals: Doris Navarro DO [Primary Care Provider] - 10 Day for suture removal
--- NOTE | 2019-10-05 19:30 | RAD_ITS ---
STUDY: X-RAY - PELVIS AND BILATERAL HIPS REASON FOR EXAM: Female, 79 years old. Bilateral leg pain after fall today TECHNIQUE: AP view of the pelvis.? 2 views of the right hip, and 2 views of the left hip were obtained. COMPARISON: None. FINDINGS: There is a non-specific bowel gas pattern. Normal visualized soft tissue structures. Normal bilateral iliac wings, sacroiliac joints and visualized sacrum. Normal bilateral superior and inferior pubic rami. Normal pubic symphysis. Normal bilateral ischial tuberosities. Normal visualized right femoral head. Normal right acetabulum. Normal right hip joint. Normal visualized left femoral head. Normal left acetabulum. Normal left hip joint. RAD/Hips B/L min 2 views w/ Pelvis IMPRESSION: Normal x-ray examination of the pelvis and bilateral hips. Electronically Signed: Félix Denson DO at 20:26 EDT Tel [phone], Service support ,
[2019-10-05] MEDS: Lidocaine/Epi/Tetracaine 50 ML 1 APPLIC TOPICAL (20:32)
[2019-10-05] MEDS: HYDROcodone Bitartrate/Apap 5/325 Tablet PO (20:55)
[2019-10-05 21:00] VITALS: BP 121/83; PULSE 79; RESP 18; O2SAT 95
== END 2019-10-05 21:17 | disposition home or self-care (01) ==
LOC: ED 19:44
PROVIDERS: Emergency Provider Emergency Medicine; PCP Internal Medicine
DX: S01.02XA Laceration with foreign body of scalp, initial encounter (principal); W10.9XXA Fall (on) (from) unspecified stairs and steps, initial encounter
CPT/HCPCS: 70450; 72125; 73521; 99284

== ENCOUNTER 2019-10-28 13:00 | Outpatient (RCR) | payer MEDICARE, SELFPAY ==
--- NOTE | 2019-10-19 14:24 | HP.PTEVAL ---
Patient's Visit Information NITZA CRUZ is a 79 year old F referred to Physical Therapy by Doris Navarro DO with a diagnosis of LBP AND WEAKNESS. FALL.. Date of Evaluation: 10/19/19 Physical Therapist: Yuni Clark PT, Cert MDT - Visit Plan Frequency: 2-3x /Week Duration: 2 Months Plan: HIGH FALL RISK. USE GAIT BELT AT ALL TIMES. GAIT TRAINING. LUMBAR US, CP AND/OR MH NEEDED. POSTURE CORRECTION/STRENGTHENING, INSTRUCTION IN APPROPRIATE BODY MECHANICS AND ACTIVITY MODIFICATIONS. DLS STARTING WITH A NEUTRAL SPINE PROGRESSING ROM TOLERATED. YULISSA LE ROM, STRETCHING AND STRENGTHENING. HEP INSTRUCTION. - Subjective Subjective: Present symptoms: LOW BACK AND YULISSA LE PAIN. YULISSA LE NUMBNESS AND TINGLING. Present since: QUITE AWHILE. CHRONIC. FIRST INJECTION WAS MAY 2019. Pain Scale: WORST 9/10, LEAST 5/10. WHEN IT HITS ME I SCREAM. Currently: 5/10. Commenced as a result of: NO APPARENT REASON. Symptoms at onset: BACK AND LEGS. Worse: STANDING, WALKING, JUST MOVING. Better: LYING DOWN AND SITTING. Disturbed sleep: YES. Previous history/Previous treatment: PATIENT REPORTS SHE HAS BEEN GETTING INJECTIONS WITH DR. KHAN SINCE MAY 2019 AND THEY AREN'T HELPING. HAS HAD ABOUT 4 OR 5 INJECTIONS. PAIN PILLS - THEY DON'T HELP EITHER. STATES SHE FELL AT HOME - FELL OVER A MONTH AGO AND GOT A LUMBAR COMPRESSION FX. HAD A VERTEBRAL PLASTY BY DR. KHAN. FELL DOWN THE BASEMENT STEPS ABOUT 5 YEARS AGO AND PATIENT THINKS THAT IS WHEN HER BACK PROBLEMS STARTED. ALSO FELL AT [employer] A COUPLE YEARS AGO. *ANOTHER FALL 2 WEEKS AGO 10/05/19 IN WALKER - SEE [facility] EMR. STARTED GOING TO A CHIROPRACTOR A FEW YEARS AGO - DIDN'T HELP MUCH AND ONLY TEMPORARY. STOPPED GOING TO THE CHIROPRACTOR AFTER ABOUT 6 MONTHS. I WAS WORSE AFTER THE CHIROPRACTOR SO I STOPPED. Coughing/sneezing/straining: POSITIVE. Gait: TRYING TO GET AROUND HOME WITH A ROLLATOR. HELPS HER GET UP. Difficulty initiating urinatin: I HAVE A HARD TIME. Accidents: MULTIPLE FALLS - SEE ABOVE. Unexplained weight loss: NO. Imaging: SEE [facility] EMR. 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 HTN, NIDDM, NO CANCER. DIZZINESS. - Objective THIS PATIENT WAS BROUGHT BACK TO PT IN A W/C BY HER . SHE IS PLEASANT AND COOPERATIVE TO WORK WITH. SHE FOLLOWS COMMANDS WELL. SITTING AND STANDING POSTURE IS POOR WITH INCREASED TRUNK FLEXION. SHE IS ABLE TO INDEP'LY TRANSFER FROM SIT TO STAND AT WALKER WITH CUEING AND CG WITH A GAIT BELT FOR SAFETY. SHE IS ONLY ABLE TO STAND FOR A MINUTE OR TWO DUE TO C/O BACK AND LEG PAIN. C/O INCREASED PAIN IN SITTING AFTER STANDING. YULISSA LE LIGHT TOUCH SENSATION APPEARS INTACT AND SYMMETRICAL WITH TESTING. SHE HAS TIGHT YULISSA HIP FLEXORS, HS'S AND GASTROC SOLEUS COMPLEX'S. YULISSA LE STRENGTH IS GROSSLY: HIPS: 4-/5, KNEES 4/5, ANKLES 5/5. PATIENT C/O INCREASED PAIN WITH HIP MMT'ING EVEN THOUGH I PROCEEDED CAREFULLY. PATIENT HAS PAINFUL LUMBAR ROM ALL PLANES AND IS UNABLE TO STAND ERRECT. CORE STRENGTH IS POOR AND YULISSA LE DURAL SIGNS ARE POSITIVE. TREATMENT: NEUROMUSCULAR REEDUCATION - RETRAINING OF MVMT AND POSTURE FOR SITTING, LYING AND STANDING ACTIVITIES. INITIATED HEP: SEATED HEEL/TOE RAISES, LAE'S AND MARCHING 2X10 EACH TODAY. - Goals Goal 1:: DECREASE C/O BACK AND YULISSA LE PAIN Goal Time Frame: 6-8 Weeks Goal 2:: IMPROVE STANDING, WALKING, TRANSFER, ADL AND SLEEP FUNCTION Goal Time Frame: 6-8 Weeks Goal 3:: PATIENT WILL BE INDEP AND SAFE WITH GAIT WITH LEAST ASSISTIVE DEVICE AND DEVIATIONS. Goal Time Frame: 6-8 Weeks Goal 4:: PATIENT WILL BE INDEP WITH A HEP FOR CONTINUED IMRPOVEMENT ONCE FORMAL PHYSICAL THERAPY CONCLUDES. Goal Time Frame: 6-8 Weeks - Rehabilitation Potential Rehabilitation Potential: Fair - Anticipated Interventions Patient/Client Instruction: Educate patient on: Condition, Plan of Care, Risk Factors, Benefits of Fitness Program For the Purpose of:: To improve self management Therapeutic Exercise to Include: Strength training, Endurance training, Balance training, Body mechanics, Postural training, Flexibilty training, Gait and locomotor training, Neuromotor development, Dynamic Lumbar Stabilization Comment: CONSIDER AQUATIC THERAPY IN THE FUTURE IF ABLE. For the Purpose of:: To decrease pain, To increase ROM, To improve muscle performance and motor function, To increase tolerance to activity/condition/position, To improve ability of physical actions for home/community/work/leisure, To improve gait and locomotor functions Cryotherapy (ice pack, ice massage): Yes Thermo therapy (hot pack): Yes Ultrasound (thermal/non thermal): Yes For the Purpose of:: To decrease pain, To decrease swelling/inflammation, To improve nutrient delivery to tissue Thank you for the opportunity to evaluate your patient. For Medicare and Medicare HMO plans, please review the plan of care and approve it. It will need to be FAXED BACK to us at [phone] for Medicare purposes. For Medicare only, by signing this I certify the plan of care. Please let me know if there are questions or concerns regarding this plan of care. Physician Signature: Date:
== END 2019-10-28 19:00 | disposition home or self-care (01) ==
LOC: PT 13:00
PROVIDERS: PCP Internal Medicine; Referring Provider Internal Medicine; Visit Provider Internal Medicine
DX: M54.5 Low back pain (principal); R29.6 Repeated falls; R53.1 Weakness
CPT/HCPCS: 97110; 97112; 97162

== ENCOUNTER → 2020-03-11 09:38 | Outpatient (CLI) | payer MEDICARE, SELFPAY ==
--- NOTE | 2020-03-11 09:40 | RAD_ITS ---
STUDY: X-RAY CHEST REASON FOR EXAM: Female, 80 years old. PNEUMONIA, COUGH TECHNIQUE: PA and lateral views of the chest. COMPARISON: Comparison is made with prior examination dated 04/24/2019. FINDINGS: Limited inspiratory effort with mild increased markings at the lung bases to just above the linear atelectasis. There is no demonstrated pleural abnormality. There is moderate cardiac enlargement. Normal mediastinum and pete. Normal visualized pulmonary arteries. There is atherosclerotic calcification of the aortic arch with tortuosity. There are diffuse degenerative changes of the visualized thoracic spine. Multiple right healed rib fractures. There is no demonstrated abnormality of the visualized soft tissue structures of the upper abdomen. RAD/Chest PA and Lateral IMPRESSION: Poor inspiratory effort with mild increased markings at the lung bases suggest bibasilar atelectasis. Electronically Signed: Teo Garrido, at 13:58 EDT , Service support ,
== END ==
PROVIDERS: PCP Internal Medicine; Referring Provider Internal Medicine; Visit Provider Internal Medicine
DX: R05 Cough (principal)
CPT/HCPCS: 71046

== ENCOUNTER → 2020-07-04 15:04 | Outpatient (CLI) | payer MEDICARE, SELFPAY ==
[2020-07-04 15:33] LABS: D-Dimer Quantitative (DVT/PE) 0.64 FEU/ug/m (0.27-0.49)
== END ==
PROVIDERS: PCP Internal Medicine; Referring Provider Internal Medicine; Visit Provider Internal Medicine
DX: R06.02 Shortness of breath (principal)
CPT/HCPCS: 85379

== ENCOUNTER 2020-07-04 18:18 | Emergency (ER) | payer MEDICARE, SELFPAY ==
[2020-07-04] VITALS (8 sets, daily range): BP systolic 135–164; BP diastolic 57–77; PULSE 98–100; RESP 17–22; TEMP 36.7–36.8; O2SAT 93–97; BMI 34.1
--- NOTE | 2020-07-04 20:02 | EKG12_ITS ---
Test Reason : SOB Blood Pressure : / mmHG Vent. Rate : 098 BPM Atrial Rate : 098 BPM P-R Int : 218 ms QRS Dur : 082 ms QT Int : 360 ms P-R-T Axes : 048 -25 035 degrees QTc Int : 459 ms Sinus rhythm with 1st degree A-V block Otherwise normal ECG Confirmed by SOLEDAD STREETER, RENY ([id number]), writer editor NAHEED CHAPMAN ([id number]) on 07/06/2020 1:05:13 PM Referred By: KIA Confirmed By:RENY ROWE MD
[2020-07-04 20:24] LABS: Absolute Lymphocyte Count 0.76 X10^3/uL (0.83-4.51); Absolute Neutrophil Count 9.2 X10^3/uL (2.0-7.7); Basophil# 0.05 X10^3/uL; Basophil% 0.5 % (0-1); Eosinophil# 0.08 X10^3/uL; Eosinophils% 0.8 % (0-5); Hematocrit 33.5 % (37-47); Hemoglobin 10.5 g/dL (12.0-15.0); Lymphocyte # 0.76 X10^3/ul (4.0); Lymphocyte % 7.4 % (19-41); Mean Corp Hgb Conc 31.3 g/dL (32-36); Mean Corpuscular Hgb 28.2 pg (27.0-32.0); Mean Corpuscular Volume 89.8 fL (81-99); Mean Platelet Vol. 9.3 fl (6.2-12.0); NRBC Flagged by Analyzer 0 % (0-5); Neutrophil # 9.17 X10^3/uL (2.7-7.7); Neutrophil % 89.3 % (47-70); Platelet Count 305 K/mm3 (150-450); RBC Distribution Width CV 14.6 % (11.6-14.6); RBC Distribution Width SD 47.7 fl (35.1-43.9); Red Blood Count 3.73 M/mm3 (4.2-5.4); White Blood Count 10.3 K/mm3 (4.4-11.0)
--- NOTE | 2020-07-04 20:25 | ED.VIS.GEN ---
History of Present Illness Chief Complaint: Shortness of Breath Informant: Patient Narrative: Patient is a 80-year-old female with a past medical history of CKD, diabetes who presents to the emergency department for shortness of breath. She was sent in by her PCP for an elevated D-dimer. Patient denies having chest pain. Her shortness of breath is partially relieved whenever she uses her home breathing treatments. States that she has had a cough but unable to bring anything up. She does not know of any sick contacts. No known coronavirus exposures. She denies fevers or chills. No abdominal pain. She denies any change in bowel habits or urinary symptoms. No leg swelling or calf pain. She states that she does lie on her stomach at nighttime. She does not need to prop herself up although sitting up does help her breathe better. Past Medical History - Allergies and Home Meds Allergies/Adverse Reactions: Allergies naproxen [From Naprosyn] Allergy (Verified 07/04/20 18:19) Hives Penicillins [PCN] Allergy (Verified 07/04/20 18:19) Hives guaifenesin [From Mucinex] Adverse Reaction (Verified 07/04/20 18:19) Unknown ketoprofen Adverse Reaction (Verified 07/04/20 18:19) Unknown loracarbef [From Lorabid] Adverse Reaction (Verified 07/04/20 18:19) Unknown bee sting Adverse Reaction (Uncoded 07/04/20 18:19) Unknown Primary Care Physician: Tono Holland MD [STAFF PHYSICIAN] - 3-5 Days Doris Navarro DO [Primary Care Provider] - Prior records reviewed: Yes Surgical History: - - Appendectomy, cholecystectomy, tonsillectomy, hysterectomy. Smoking Status: Never smoker - Family History Maternal Family History: Reports: Diabetes, Heart Disease, Hypertension Paternal Family History: Reports: Diabetes, Heart Disease, Hypertension Review of Systems All systems negative except as indicated General: Denies: Chills, Fever, Sweats Eyes: Denies: Visual changes - bilaterally, Diplopia ENT: Denies: Rhinorrhea, Sore throat Cardiovascular: Denies: Chest pain, Palpitations Respiratory: Reports: Dyspnea, Cough, Dyspnea on exertion Gastrointestinal: Denies: Abdominal pain, Nausea, Vomiting, Diarrhea, Melena, Hematochezia Genitourinary: Denies: Dysuria, Hematuria, Frequency Musculoskeletal: Denies: Back pain, Swelling, Extremity Pain Skin: Denies: Rash, Wounds Neurological: Denies: Headache, Weakness, Numbness Physical Exam Vital Signs/Narrative: Vital Signs Temp Pulse Resp BP Pulse Ox 07/04/20 19:55 100 20 H 164/77 H 97 07/04/20 18:19 98.3 F 98 17 135/57 H 95 Inital Vital Signs reviewed: Yes General: Well nourished, Well developed, No Acute Distress Head: Normocephalic, Atraumatic Eyes: Perrl, EOMI ENT: Moist mucous membranes, No rhinorrhea Neck: Supple, Nontender Cardiovascular: Regular rate, Regular rhythm, No murmurs, Murmur Respiratory: No distress, Chest nontender, Wheezing - Bilateral, expiratory Abdomen: Soft, Nontender, Nondistended, Normal bowel sounds Back: Nontender, Normal Inspection Extremities: Nontender, No edema. Negative for: Calf Tenderness Skin: Normal color, No rash Neurological: Alert, Oriented x3, Cranial nerves II-XII grossly intact, Normal Strength, Normal Sensation Psychological: Normal affect, Normal Mood Diagnostic/Tx/Re-eval - EKG Initial EKG Interpretation: - - Rate of 98 bpm with a prolonged [place] interval of 218 with first-degree AV block. Otherwise normal intervals. No significant ST elevations or depressions. No T wave abnormalities. - Medical Decision Making Patient presents to the emergency department for shortness of breath. This has been going on for the past month. She was sent in for PE evaluation because she had an elevated D-dimer. I did review this which it was 0.64. For the age adjustment this is actually negative for her. With her history of chronic kidney disease with elevated creatinine I would not want to give her a contrast bolus and make her renal function worse for test with low pretest probability of being positive. She does have wheezing on physical exam. She otherwise is in no acute distress on room air. EKG, chest x-ray basic lab work being obtained. Chest x-ray did not reveal any acute cardiopulmonary abnormality. She is feeling better after DuoNeb. Troponin is negative. The rest lab work did not reveal any significant acute abnormality. She did ambulate with pulse ox and did not desaturate past 90%. Does feel comfortable going home. She is feeling better. I did contact her PCPs office and informed them of the findings and that the CTA was not performed. I did make referral for pulmonology as her symptoms have been going for a month. She did receive steroid by her PCP today which could explain her elevated blood sugar. Warning signs and symptoms for which to return to the ED including any worsening shortness of breath, chest pain were reviewed with her. She understands and is agreeable this plan. She is discharged home in stable condition. All questions answered. ED Disposition - Plan for ED Patient: Disposition: Home or Assisted Living Diagnosis: Dyspnea, Wheezing, CKD (chronic kidney disease) Instructions: ED Chronic Kidney Disease (CKD), ED Dyspnea Referrals: Doris Navarro DO [Primary Care Provider] - Tono Holland MD [STAFF PHYSICIAN] - 3-5 Days
--- NOTE | 2020-07-04 20:30 | RAD_ITS ---
STUDY: X-RAY CHEST REASON FOR EXAM: Female, 80 years old. Shortness of breath x 1 month TECHNIQUE: Single frontal view of the chest. COMPARISON: 07/04/2020. FINDINGS: There is persistent elevation of the right hemidiaphragm. There is no new focal consolidation. Normal size heart. Normal mediastinum and pete. Normal visualized pulmonary arteries. There is atherosclerotic calcification of the aortic arch with tortuosity. There is a levoscoliosis of the thoracolumbar spine. There are stable right posterior rib deformities consistent with healed fractures. There is no demonstrated abnormality of the visualized soft tissue structures of the upper abdomen. RAD/Chest 1 View (Portable) IMPRESSION: No acute cardiopulmonary process. Electronically Signed: Aruna Palomino MD at 20:57 EST Tel , Service support ,
[2020-07-04 20:43] LABS: Anion Gap 14 (5-15); BUN 26 mg/dL (7-18); BUN/Creat Ratio 15.1 RATIO (10-20); Calcium,Total 9.2 mg/dL (8.5-10.1); Chloride 104 mmol/L (98-107); Creatinine, Serum 1.72 mg/dL (0.55-1.02); EST Glomerular Filtration Rate 30 mL/min (>60); Est Glom Filt Rate - Afr Amer 37 mL/min (>60); Estimated Creatinine Clearance 23.87 ml/min; Glucose 306 mg/dL (74-106); Potassium 4.3 mmol/L (3.5-5.1); Sodium Level 140 mmol/L (136-145)
[2020-07-04] MEDS: Ipratropium/Albuterol Sulfate 3 ML AMPUL.NEB INHALATION (21:32)
[2020-07-05 11:25] LABS: BNP,B-Type NATRIURETIC PEPTIDE 12.4 pg/mL (0-100)
== END 2020-07-04 22:30 | disposition home or self-care (01) ==
PROVIDERS: Emergency Provider Emergency Medicine; PCP Internal Medicine
DX: R06.00 Dyspnea, unspecified (principal); R06.2 Wheezing; N18.9 Chronic kidney disease, unspecified
CPT/HCPCS: 71045; 80048; 83880; 84484; 85025; 85379; 93005; 94640; 99283; A4216

== ENCOUNTER 2020-07-28 13:33 | Emergency (ER) | payer MEDICARE, SELFPAY ==
[2020-07-11 13:18] VITALS: BMI 33.4
[2020-07-28 13:34] VITALS: BP 153/81; PULSE 109; RESP 16; TEMP 35.7; O2SAT 95; BMI 30.6
--- NOTE | 2020-07-28 13:55 | CT_ITS ---
STUDY: CT ABDOMEN AND PELVIS WITHOUT CONTRAST REASON FOR EXAM: Female, 80 years old. Nausea, vomiting, diarrhea x 6 days, low grade fever. Prior hysterectomy, appendectomy, cholecystectomy, hypertension, diabetes. RADIATION DOSAGE (If Supplied By Facility): CTDIvol = ( 18.27 ) mGy, DLP = ( 972.28 ) mGycm TECHNIQUE: Transaxial images were obtained from the dome of the diaphragm to the symphysis pubis without oral contrast, and without intravenous contrast. Sagittal and coronal images were reconstructed. Individualized dose optimization techniques were used for this CT. COMPARISON: None. FINDINGS: The visualized lung bases are unremarkable. The visualized portions of the heart are within normal limits. Normal liver. There is non-visualization of the gallbladder, which may be secondary to either contraction or a prior cholecystectomy. There are multiple benign calcified granulomata of the spleen. Normal pancreas. Normal bilateral adrenal glands. Parapelvic cysts of both kidneys. No renal stone, hydronephrosis, ureteral stone, or ureteral dilatation. There is a small hiatal hernia. Normal small intestine. Normal colon. There is non-visualization of the appendix. Normal abdominal aorta. Normal inferior vena cava. Normal retroperitoneum. Normal urinary bladder. Normal abdominal wall. Mild dextroscoliosis of the thoracic lumbar spine. Chronic mild wedge compression fracture of L2 treated with vertebroplasty. Acute or subacute moderate wedge compression fracture of L1 with 5 mm retropulsion into the spinal canal producing moderate spinal stenosis. CT/Abdomen/Pelvis without Cont IMPRESSION: 1. No renal or ureteral stone. 2. Acute or subacute moderate wedge compression fracture of L1 with 5 mm retropulsion into the spinal canal producing moderate spinal stenosis. Electronically Signed: Jamie Hood MD at 14:53 EST Tel , Service support ,
[2020-07-28 14:15] LABS: Absolute Lymphocyte Count 2.59 X10^3/uL (0.83-4.51); Absolute Neutrophil Count 14.2 X10^3/uL (2.0-7.7); Basophil# 0.07 X10^3/uL; Basophil% 0.3 % (0-1); Eosinophils% 10.2 % (0-5); Hematocrit 39.7 % (37-47); Hemoglobin 12.6 g/dL (12.0-15.0); Lymphocyte # 2.59 X10^3/ul (4.0); Lymphocyte % 12.8 % (19-41); Mean Corp Hgb Conc 31.7 g/dL (32-36); Mean Corpuscular Hgb 28.2 pg (27.0-32.0); Mean Corpuscular Volume 88.8 fL (81-99); Mean Platelet Vol. 10.4 fl (6.2-12.0); Monocyte# 1.09 X10^3/uL; Monocyte% 5.4 % (0-10); NRBC Flagged by Analyzer 0 % (0-5); Neutrophil # 14.23 X10^3/uL (2.7-7.7); Neutrophil % 70.7 % (47-70); POSITIVE DIFFERENTIAL YES; Platelet Count 352 K/mm3 (150-450); RBC Distribution Width CV 14.9 % (11.6-14.6); RBC Distribution Width SD 48.4 fl (35.1-43.9); Red Blood Count 4.47 M/mm3 (4.2-5.4); White Blood Count 20.2 K/mm3 (4.4-11.0)
[2020-07-28] MEDS: 0.9% Normal Saline 1,000 ML 1000 ML IV (14:15)
[2020-07-28] MEDS: Ondansetron 4 MG/2 ML Vial IV (14:15)
[2020-07-28] MEDS: Morphine 4 MG/ML Syringe IV (14:15)
[2020-07-28 14:16] LABS: Eosinophil# 2.06 X10^3/uL
--- NOTE | 2020-07-28 14:25 | RAD_ITS ---
STUDY: X-RAY CHEST REASON FOR EXAM: Female, 80 years old. N/V/D STARTING AROUND 07/22. RECURRED YESTERDAY. LOW GRADE FEVER AT HOME 99.7. DENIES OTHER SX. TECHNIQUE: Single AP portable view of the chest. COMPARISON: 07/04/2020 FINDINGS: The lungs are clear and expanded. Elevated right hemidiaphragm which is unchanged. There is moderate cardiac enlargement. Normal mediastinum and pete. Normal visualized pulmonary arteries. Normal visualized aortic arch and descending thoracic aorta. Normal visualized thoracic spine. Multiple healed right rib fractures. There is no demonstrated abnormality of the visualized soft tissue structures of the upper abdomen. RAD/Chest 1 View (Portable) IMPRESSION: No active disease. Electronically Signed: Jamie Hood MD at 14:39 EST Tel , Service support ,
[2020-07-28 14:28] LABS: ALB/GLOB Ratio 0.9 RATIO (0.9-2.4); AST(SGOT) 7 U/L (15-37); Alanine Aminotransfer ALT/SGPT 18 U/L (13-56); Albumin, Serum 3.4 g/dL (3.2-5.0); Alkaline Phosphatase 127 U/L (45-117); Anion Gap 10 (5-15); BUN 28 mg/dL (7-18); BUN/Creat Ratio 16.6 RATIO (10-20); Calcium,Total 9.1 mg/dL (8.5-10.1); Chloride 107 mmol/L (98-107); Creatinine, Serum 1.69 mg/dL (0.55-1.02); EST Glomerular Filtration Rate 31 mL/min (>60); Est Glom Filt Rate - Afr Amer 38 mL/min (>60); Estimated Creatinine Clearance 24.29 ml/min; Globulin 3.8 g/dL (2.2-4.2); Glucose 166 mg/dL (74-106); Lipase 342 U/L (73-393); Potassium 3.4 mmol/L (3.5-5.1); Protein, Total 7.2 g/dL (6.4-8.2); Sodium Level 141 mmol/L (136-145)
--- NOTE | 2020-07-28 14:52 | ED.VISSUMM ---
- ER Visit Summary Date of Service: 07/28/20 Chief Complaint: Vomiting and diarrhea History of Present Illness: The patient is a [address] De La Cruz. She reports that she has abdominal pain that began yesterday. She describes it as irritating. It was 10 out of 10 at worst and she is pain-free currently. Is improved with vomiting. Nothing makes this worse. States she is vomited 6 times. No blood or emesis, but it has been brown. She had multiple episodes of diarrhea. No blood in her stools or black tarry stools. Patient denies sick contacts. Has not been camping out of the country. No possible bad food exposure. Does drink well water, but others do at home as well and they are not ill. No recent antibiotic use. Patient reports that she has chronic of shortness of breath for years that is unchanged. Physical Examination: Vitals: Stable. Afebrile. General: Well-nourished and well-developed. Head: Normocephalic atraumatic. Neck: Supple, no lymphadenopathy. No JVD. Nontender. Cardiovascular: Regular rate and rhythm. 2 out of 6 systolic murmur. Respiratory: No respiratory distress. Clear to auscultation bilaterally. Abdominal: Soft, mild diffuse tenderness palpation with decreased bowel sounds and slight distention. No guarding, rebound, or peritoneal signs. Back: Nontender. Extremities: Nontender, no edema. Skin: Normal color, no rash. Neurologic: Alert and oriented ?3. Cranial nerves II through XII are intact. Normal strength and sensation. Psych: Normal affect. Test Results: CBC shows a white count of 20.2 with 71 segs neutrophils and 13 lymphocytes. Chem-7 shows potassium 3.4, glucose 166, UN 28, creatinine 1.69. LFTs show an alk phos of 127, AST of 7. Lipase is normal. COVID-19 rapid antigen is negative. Clinical Impression(s) from Imaging Studies Abdomen/Pelvis CT 07/28/20 13:55 IMPRESSION: 1. No renal or ureteral stone. 2. Acute or subacute moderate wedge compression fracture of L1 with 5 mm retropulsion into the spinal canal producing moderate spinal stenosis. Electronically Signed: Jamie Hood MD at 14:53 EST Tel , Service support , Chest X-Ray 07/28/20 14:25 IMPRESSION: No active disease. Electronically Signed: Jamie Hood MD at 14:39 EST Tel , Service support , Emergency Department Course and Treatment: Patient was treated morphine and Zofran IV here. She is resting comfortably. She has had no vomiting or diarrhea while here. Patient has acrylic nail [place] on which we cannot remove here. Her pulse ox does not sisal picker well. With ambulation her pulse ox is 90-92% on room air. However, at rest it ranges it here as well. When the pulse ox is placed on her toe it is 95%. Treatment Plan: The patient feels well and would like to go home. Patient reports that she feels much better today than she did yesterday prior to even coming to the emergency department. I do not have an explanation for her leukocytosis at this time. She was discussed with Dr. Navarro. She will be discharged with Zofran and instructed to follow-up in 3 to 5 days for another exam. Return to the emergency department for any worsening symptoms. Disposition: To home in improved and stable condition. Impression: 1. Vomiting/diarrhea. 2. Leukocytosis. 3. Chronic dyspnea. This note was generated with [employer] dictation software. It may contain incorrect words, spelling, and punctuation that were not noted in review of the chart prior to signing ED Disposition - Plan for ED Patient: Instructions: ED Vomiting and Diarrhea ... Prescriptions: Ondansetron [Zofran Odt] 4 mg PO Q8H PRN PRN #10 tab PRN Reason: Nausea Referrals: Doris Navarro DO [Primary Care Provider] - 3-5 Days
[2020-07-28 15:18] VITALS: O2SAT 92
[2020-07-28 15:41] VITALS: PULSE 97; RESP 18; O2SAT 94; O2SAT 95
[2020-07-28 16:36] VITALS: PULSE 94; RESP 20; O2SAT 96
[2020-08-01 13:13] LABS: Pathologist Review Reviewed
== END 2020-07-28 16:37 | disposition home or self-care (01) ==
PROVIDERS: Emergency Provider Emergency Medicine; PCP Internal Medicine
DX: R11.10 Vomiting, unspecified (principal); R19.7 Diarrhea, unspecified; D72.829 Elevated white blood cell count, unspecified; R06.00 Dyspnea, unspecified
CPT/HCPCS: 71045; 74176; 80053; 83690; 85025; 87426; 96361; 96374; 96375; 99285; A4216; J2405

== ENCOUNTER 2020-07-31 14:37 | Emergency (ER) | payer MEDICARE, SELFPAY ==
[2020-07-31 14:39] VITALS: BP 135/70; PULSE 110; RESP 18; TEMP 37.4; O2SAT 97; BMI 30.1
--- NOTE | 2020-07-31 15:01 | CT_ITS ---
STUDY: CT ABDOMEN AND PELVIS WITH CONTRAST REASON FOR EXAM: Female, 80 years old. ELEV WBC, N/V/D, ABD PAIN, SURG-hysterectomy, cholecystectomy, appendectomy, CKD, CHF, CVA,DB,HTN RADIATION DOSAGE (If Supplied By Facility): CTDIvol = ( 16 ) mGy, DLP = ( 1191.33 ) mGycm TECHNIQUE: Transaxial images were obtained from the dome of the diaphragm to the symphysis pubis without oral contrast. Oral and amp; IV Gastrografin and amp; 100mL Isovue-370 was administered. Sagittal and coronal images were reconstructed. Individualized dose optimization techniques were used for this CT. COMPARISON: 07/28/2020 FINDINGS: The visualized lung bases are unremarkable. The visualized portions of the heart are within normal limits. Normal liver. Gallbladder is surgically absent. There are multiple benign calcified granulomata of the spleen. Normal pancreas. Normal bilateral adrenal glands. There are bilateral renal cysts most of which are parapelvic, stable. No hydronephrosis or urinary tract calcifications. Normal visualized stomach. Normal small intestine. There are multiple colonic diverticula consistent with diverticulosis. There is non-visualization of the appendix. There is diffuse atherosclerotic calcification of the abdominal aorta, without a demonstrated aneurysm. Normal inferior vena cava. Normal retroperitoneum. Normal urinary bladder. There is a left-sided inguinal hernia containing adipose tissue. There are diffuse degenerative changes of the visualized lumbar spine. L1 compression fracture is stable. L2 compression deformity with kyphoplasty cement is stable. CT/Abdomen/Pelvis WITH Contrast IMPRESSION: 1. No acute inflammatory process or bowel obstruction. 2. Stable L1 compression fracture. Electronically Signed: Clemente Pérez MD (Brooks) at 17:44 EST , Service support ,
--- NOTE | 2020-07-31 15:04 | ED.VIS.GEN ---
History of Present Illness Chief Complaint: Abd Pain Informant: Patient Onset: Weeks Context: Gradual Onset Timing: Waxes and wanes Current Severity: Moderate Maximum Severity: Moderate Narrative: Patient returns to the ER with continued abdominal pain, nausea, vomiting, and diarrhea. Patient was seen in the ER on 27 July for the same. She states symptoms actually started a couple weeks ago. She describes abdominal pain as being diffuse. She states she did take some Imodium and her diarrhea seems to be slowing but she is continuing to have nausea and vomiting, last episode last evening. She is on Zofran at home but states is not really helping. She has had low-grade temperatures around 99.3 or so. On review of her recent visit she did have a white count elevated to 20 but no focus of infection was found. - Past Medical History (1) Aortic stenosis Status: Chronic (2) Dementia Status: Chronic (3) Post-polio syndrome Status: Chronic (4) CKD (chronic kidney disease) stage 3, GFR 30-59 ml/min Status: Chronic (5) CVA (cerebral vascular accident) Status: Chronic (6) Esophageal reflux Status: Chronic (7) Hypertension Status: Chronic (8) Hypothyroidism Status: Chronic (9) Type 2 diabetes mellitus Status: Chronic Past Medical History - Allergies and Home Meds Allergies/Adverse Reactions: Allergies naproxen [From Naprosyn] Allergy (Verified 07/31/20 14:38) Hives Penicillins [PCN] Allergy (Verified 07/31/20 14:38) Hives guaifenesin [From Mucinex] Adverse Reaction (Verified 07/31/20 14:38) Unknown ketoprofen Adverse Reaction (Verified 07/31/20 14:38) Unknown loracarbef [From Lorabid] Adverse Reaction (Verified 07/31/20 14:38) Unknown bee sting Adverse Reaction (Uncoded 07/31/20 14:38) Unknown Primary Care Physician: Doris Navarro DO [Primary Care Provider] - Surgical History: appendectomy, cholecystectomy, - - Appendectomy, cholecystectomy, tonsillectomy, hysterectomy. Smoking Status: Never smoker - Family History Maternal Family History: Family History (Last Reviewed 07/11/20 @ 13:10 by Mai Bhakta) Aunt Cancer Sister Diabetes Father Hypercholesteremia Myocardial infarction Mother Hypertension Diabetes CAD (coronary artery disease) Other Heart disease Family History: Reports: Diabetes, Heart Disease, Hypertension Paternal Family History: Family History (Last Reviewed 07/11/20 @ 13:10 by Mai Bhakta) Aunt Cancer Sister Diabetes Father Hypercholesteremia Myocardial infarction Mother Hypertension Diabetes CAD (coronary artery disease) Other Heart disease Family History: Reports: Diabetes, Heart Disease, Hypertension Review of Systems General: Reports: Fever - T-max 99.4. Denies: Chills Eyes: Denies: Visual changes - bilaterally ENT: Denies: Bilateral ear pain Cardiovascular: Denies: Chest pain Respiratory: Denies: Dyspnea, Cough Gastrointestinal: Reports: Abdominal pain, Nausea, Vomiting, Diarrhea Genitourinary: Denies: Dysuria Musculoskeletal: Denies: Swelling, Extremity Pain Skin: Denies: Rash Neurological: Denies: Headache Hematologic: Denies: Easy bruising, Easy bleeding Allergy: Denies: Uticaria Physical Exam Vital Signs/Narrative: Vital Signs Temp Pulse Resp BP Pulse Ox 07/31/20 14:39 99.3 F H 110 H 18 135/70 H 97 Inital Vital Signs reviewed: Yes General: Well nourished, Well developed Head: Normocephalic ENT: Moist mucous membranes Neck: Supple Cardiovascular: Regular rate, Regular rhythm Respiratory: No distress, CTA bilaterally Abdomen: Soft, Normal bowel sounds, Tender - Mild diffuse tenderness to palpation.. Negative for: Guarding, Rebound tenderness Extremities: Nontender Skin: Normal color Neurological: Alert, Oriented x3 Psychological: Normal affect Diagnostic/Tx/Re-eval 07/31/20 15:01 Abdomen/Pelvis WITH Contrast [CT] Stat Laboratory Results 07/31/20 07/31/20 15:29 15:29 WBC 18.5 H RBC 4.72 Hgb 13.0 Hct 41.8 MCV 88.6 MCH 27.5 MCHC 31.1 L RDW Std Deviation 47.1 H RDW Coeff of Juanito 14.6 Plt Count 350 MPV 10.4 Immature Gran % (Auto) 0.600 Neut % (Auto) 64.2 Lymph % (Auto) 10.8 L Perkins % (Auto) 5.4 Eos % (Auto) 18.5 H Baso % (Auto) 0.5 Absolute Neuts (auto) 11.9 H Absolute Lymphs (auto) 1.99 Nucleated RBC % 0 Differential Comment SCANNED Diff Path Review May foll Sodium 140 Potassium 3.7 Chloride 105 Carbon Dioxide 26.0 Anion Gap 9 BUN 19 H Creatinine 1.24 H Estim Creat Clear Calc 33.10 Est GFR (MDRD) Af Amer 54 L Est GFR (MDRD) Non-Af 44 L BUN/Creatinine Ratio 15.3 Glucose 147 H Calcium 8.6 Total Bilirubin 0.50 Direct Bilirubin 0.15 AST 26 ALT 23 Alkaline Phosphatase 147 H Total Protein 7.3 Albumin 3.3 Globulin 4.0 Lipase 195 - Medical Decision Making Patient was given a small dose of fentanyl along with Zofran. On repeat evaluation she is resting more currently but states she does feels very nervous about what could be causing her abdominal pain. I did advise her that her blood work is back. Her white count is still significantly elevated but is improving when compared to prior. Renal function is actually better than baseline. Patient will go for CT scan of the abdomen and pelvis shortly and this will be signed out to oncoming physician for final disposition. Patient was advised that a different physician will be coming back to talk to her about her test results. She voices understanding and agreement. ED Disposition - Plan for ED Patient: Diagnosis: Abdominal pain Referrals: Doris Navarro DO [Primary Care Provider] -
[2020-07-31] MEDS: fentaNYL 100 MCG/2 ML Ampul 25 MCG IV (15:39)
[2020-07-31] MEDS: Ondansetron 4 MG/2 ML Vial IV (15:39)
[2020-07-31 15:50] LABS: Absolute Lymphocyte Count 1.99 X10^3/uL (0.83-4.51); Absolute Neutrophil Count 11.9 X10^3/uL (2.0-7.7); Basophil% 0.5 % (0-1); Eosinophils% 18.5 % (0-5); Hematocrit 41.8 % (37-47); Lymphocyte # 1.99 X10^3/ul (4.0); Lymphocyte % 10.8 % (19-41); Mean Corp Hgb Conc 31.1 g/dL (32-36); Mean Corpuscular Hgb 27.5 pg (27.0-32.0); Mean Corpuscular Volume 88.6 fL (81-99); Mean Platelet Vol. 10.4 fl (6.2-12.0); Monocyte# 0.99 X10^3/uL; Monocyte% 5.4 % (0-10); NRBC Flagged by Analyzer 0 % (0-5); Neutrophil # 11.86 X10^3/uL (2.7-7.7); Neutrophil % 64.2 % (47-70); POSITIVE DIFFERENTIAL YES; Platelet Count 350 K/mm3 (150-450); RBC Distribution Width CV 14.6 % (11.6-14.6); RBC Distribution Width SD 47.1 fl (35.1-43.9); Red Blood Count 4.72 M/mm3 (4.2-5.4); White Blood Count 18.5 K/mm3 (4.4-11.0)
[2020-07-31 16:03] LABS: Eosinophil# 3.42 X10^3/uL
[2020-07-31 16:04] LABS: Differential Indicated SCAN CRITERIA MET
[2020-07-31 16:11] LABS: AST(SGOT) 26 U/L (15-37); Alanine Aminotransfer ALT/SGPT 23 U/L (13-56); Albumin, Serum 3.3 g/dL (3.2-5.0); Alkaline Phosphatase 147 U/L (45-117); Anion Gap 9 (5-15); BUN 19 mg/dL (7-18); BUN/Creat Ratio 15.3 RATIO (10-20); Bilirubin, Direct 0.15 mg/dL (0.00-0.30); Calcium,Total 8.6 mg/dL (8.5-10.1); Chloride 105 mmol/L (98-107); Creatinine, Serum 1.24 mg/dL (0.55-1.02); EST Glomerular Filtration Rate 44 mL/min (>60); Est Glom Filt Rate - Afr Amer 54 mL/min (>60); Glucose 147 mg/dL (74-106); Lipase 195 U/L (73-393); Potassium 3.7 mmol/L (3.5-5.1); Protein, Total 7.3 g/dL (6.4-8.2); Sodium Level 140 mmol/L (136-145)
[2020-07-31 16:31] LABS: Differential Comment SCANNED
[2020-07-31 18:45] LABS: Bacteria 0 SEEN /hpf (None Seen); Mucous, Urine 0 SEEN /hpf (<or=2+); Red Blood Cells-Urine 0 SEEN /hpf (0-5); Squamous Epithelial Cells - UA 0 SEEN /hpf (5-10); White Blood Cells 0 SEEN /hpf (0-5)
[2020-07-31 18:57] LABS: Color, Urine Yellow (Yellow); Glucose, Dipstick Normal (Normal); Ketone-Dipstick Negative (Negative); Leukocyte Esterase-Dipstick Negative /ul (Negative); Nitrite-Dipstick Negative (Negative); Occult Blood-Urine Negative /ul (Negative); Protein-Dipstick 15 mg/dl (Negative); Urine Bilirubin Dipstick Negative (Negative); Urine Clarity Clear (Clear); Urine Urobilinogen Normal (Normal)
[2020-07-31 18:59] VITALS: BP 160/92; PULSE 108; RESP 32; O2SAT 94
[2020-07-31 19:26] VITALS: BP 149/92; PULSE 112; RESP 24; O2SAT 96
--- NOTE | 2020-07-31 19:29 | ED.DEP ---
ED Disposition - Plan for ED Patient: Disposition: Home or Assisted Living Diagnosis: Abdominal pain Instructions: ED Abdominal Pain Unkn Cause Fem Referrals: Doris Navarro, [Primary Care Provider] - As soon as possible Additional Instructions: Fluids and rest. Tylenol for any pain. Follow-up with your doctor this week. Return if feeling a lot worse. Other than having an elevated white count your labs today and on the were unremarkable. Your CAT scan did not show any significant cause for your pain.
[2020-08-01 13:34] LABS: Pathologist Review Reviewed
== END 2020-07-31 19:38 | disposition home or self-care (01) ==
PROVIDERS: Emergency Provider Emergency Medicine; PCP Internal Medicine
DX: R10.9 Unspecified abdominal pain (principal); D72.829 Elevated white blood cell count, unspecified; Z86.73 Personal history of transient ischemic attack (TIA), and cerebral infarction without residual deficits
CPT/HCPCS: 74177; 80048; 80076; 81001; 83690; 85025; 87635; 96374; 96375; 99285; P9612; Q9967; A4216; J2405; U0002

== ENCOUNTER → 2020-08-11 12:40 | Outpatient (CLI) | payer MEDICARE, SELFPAY ==
[2020-07-11 13:18] VITALS: BMI 33.4
[2020-07-31 14:39] VITALS: BMI 30.1
--- NOTE | 2020-08-12 08:12 | PFT ---
INTRODUCTION: The patient is a 80-year-old female that presents for pulmonary function studies secondary to a diagnosis of shortness of breath. Respiratory therapy reported that the patient had difficulty completing DLCO maneuvers despite multiple attempts. Bronchodilators were used during testing. INTERPRETATION: Forced expiration spirometry demonstrates no evidence of a large airways obstructive ventilatory defect. There was no significant response to aerosolized bronchodilators. Spirograms are of fair quality and plateau gradually. Body plethysmography was performed and revealed a decreased TLC to 3.59 L, 73% of predicted, indicative of a mild restrictive ventilatory impairment. The remainder of the lung volumes are symmetrically reduced. Diffusing capacity by single breath CO was reported to the 147% of predicted. However, these results may be erroneous in nature given the patient's difficulty in performing the maneuvers. IMPRESSION: Isolated mild restrictive ventilatory impairment.
== END ==
PROVIDERS: PCP Internal Medicine; Referring Provider Internal Medicine Critical Care Medicine; Visit Provider Internal Medicine Critical Care Medicine
DX: R06.02 Shortness of breath (principal)
CPT/HCPCS: 94060; 94726; 94729

== ENCOUNTER → 2020-08-16 13:43 | Outpatient (CLI) | payer MEDICARE, SELFPAY ==
[2020-08-16 13:36] VITALS: BMI 33.4
[2020-08-20 03:07] LABS: Alternaria alternata <0.10 kU/L (Class 0); Bluegrass, Kentucky 0.17 kU/L (Class 0/I); Cat Hair/Dander, Standard 0.21 kU/L (Class 0/I); D farinae Mite <0.10 kU/L (Class 0); D pteronyssinus 0.11 kU/L (Class 0/I); Dog Epithelia 0.16 kU/L (Class 0/I); Elm, American White 0.24 kU/L (Class 0/I); Plantain, English 0.28 kU/L (Class 0/I); Ragweed, Short/Common 0.28 kU/L (Class 0/I)
[2020-08-20 09:26] LABS: Mouse Urine <0.10 kU/L (Class 0)
[2020-08-20 20:07] LABS: Aspirgillus flavus Negative (Neg:<1:1); Aspirgillus fumigatus Negative (Neg:<1:1); Aspirgillus niger Negative (Neg:<1:1); Cytoplasmic Ab (C-ANCA) <1:20 titer (Neg:<1:20)
[2020-08-20 20:37] LABS: Immunoglobulin E 2566 IU/mL (6-495); Perinuclear Ab (P-ANCA) <1:20 titer (Neg:<1:20)
== END ==
PROVIDERS: PCP Internal Medicine; Referring Provider Nurse Practitioner Acute Care; Visit Provider Nurse Practitioner Acute Care
DX: R05 Cough (principal); J30.9 Allergic rhinitis, unspecified
CPT/HCPCS: 36415; 82785; 86003; 86256; 86606

== ENCOUNTER 2020-08-25 14:22 | Outpatient (RCR) | payer MEDICARE, SELFPAY ==
[2020-08-24 15:00] VITALS: BMI 35.6
== END 2020-08-25 23:59 ==
LOC: IMMUN 14:22
PROVIDERS: PCP Internal Medicine; Visit Provider Family Medicine
DX: Z23 Encounter for immunization (principal)
CPT/HCPCS: 0011A; 0012A; 91301

== ENCOUNTER → 2020-09-07 06:34 | Outpatient (CLI) | payer MEDICARE, SELFPAY ==
[2020-08-31 14:08] VITALS: BMI 36.0
--- NOTE | 2020-09-07 06:37 | ECHOCS_ITS ---
Reason For Study: MURMUR Procedure This was a 2D Doppler, Color Flow transthoracic echocardiogram. The study was technically difficult. Contrast injection was performed. Exam performed in department. Left Ventricle Normal LV size. Left ventricular systolic function is normal. The estimated ejection fraction is 70 %. No regional wall motion abnormalities noted. Right Ventricle Normal right ventricle. Normal systolic function. Atria Normal left atrium. Normal right atrium. Mitral Valve Mitral valve not well visualized. Tricuspid Valve The tricuspid valve is not well visualized. Aortic Valve Trisinus/trileaflet aortic valve. Mild focal aortic valve thickening. Mild aortic stenosis. Pulmonic Valve Normal pulmonic valve. Great Vessels Normal aortic root. The pulmonary artery is normal size. Normal inferior vena cava. Pericardium/Pleural No pericardial effusion. Medication Diluted definity 3.0ml given slow IV push to enhance endocardial definition. MMode/2D Measurements & Calculations LVOT diam: 2.0 cm Ao root diam: 4.1 cm LAV(MOD-sp4): 33.3 ml LVOT area: 3.1 cm2 SV(MOD-sp4): 48.1 ml SV(sp4-el): 51.0 ml LVAd ap4: 27.7 cm2 EDV(MOD-sp4): 68.0 ml EDV(sp4-el): 71.0 ml LVAs ap4: 12.4 cm2 ESV(MOD-sp4): 19.9 ml ESV(sp4-el): 20.0 ml EF(MOD-sp4): 70.8 % EF(sp4-el): 71.9 % LA dimension(2D): 4.1 cm LA A4 area: 14.0 cm2 RA A4 area: 10.0 cm2 Doppler Measurements & Calculations Lat Peak E' Vamsi: 3.7 cm/sec Med Peak E' Vamsi: 3.0 cm/sec MV V2 max: 156.3 cm/sec MV max P.8 mmHg MV V2 mean: 92.1 cm/sec MV mean P.8 mmHg MV V2 VTI: 31.2 cm MVA(VTI): 3.1 cm2 Ao V2 max: 333.6 cm/sec LV V1 max: 140.4 cm/sec SV(LVOT): 95.4 ml Ao max P.6 mmHg LV V1 max P.9 mmHg Ao V2 mean: 237.9 cm/sec LV V1 mean P.7 mmHg Ao mean P.6 mmHg LV V1 mean: 104.2 cm/sec Ao V2 VTI: 61.3 cm LV V1 VTI: 31.0 cm OCTAVIO(I,D): 1.6 cm2 OCTAVIO(V,D): 1.3 cm2 PA V2 max: 103.8 cm/sec MV P1/2t-pr_phl: 77.1 msec Interpretation Summary Normal LV size. Left ventricular systolic function is normal. The estimated ejection fraction is 70 %. Contrast injection was performed. The study was technically difficult. The study was technically limited. Ordering Physician: Jason Barth Referring Physician: KAIT HATCH Performed By: Anna Broussard, [place], RVT
--- NOTE | 2020-09-07 13:13 | STRESSREP ---
Stress Test Report Pharmacologic myocardial perfusion stress test. 80-year-old man with a history of coronary artery risk factors. Stress protocol: Resting EKG demonstrates normal sinus rhythm with a rate of 89 bpm normal intervals are noted. Resting blood pressure is 132/72 mmHg. 0.4 mg of regadenoson was infused per usual protocol followed by rapid intravenous saline flush injection continuous EKG monitoring was performed. The maximum heart rate attained was 103 bpm which was 73% of maximum predicted heart rate the maximum workload was 1 metabolic equivalent. At rest there were no ST or T wave changes noted to suggest abnormal flow reserve at peak infusion nonspecific ST-T wave changes were noted with no meet the criteria for flow reserve. The peak blood pressure was 132/72 mmHg. Myocardial perfusion protocol. 9.0 mCi of technetium 99m sestamibi was injected at rest. 0.4 mg of regadenoson was infused per usual protocol. At peak infusion 28.4 mCi of technetium 99m sestamibi was injected stress images were obtained stress and rest images were reconstructed and compared in the short axis vertical long horizontal long axis. Gated images were also obtained Perfusion SPECT analysis: Review of the stress images demonstrate normal uptake of tracer noted in all areas of the myocardium the resting images demonstrate normal uptake of tracer noted in all areas of the myocardium. No reversibility is noted suggest ischemia. Gated SPECT analysis: The gated ejection fraction is 79%. Conclusion: Normal pharmacologic myocardial perfusion stress test. Preserved ejection fraction.
== END ==
PROVIDERS: PCP Internal Medicine; Referring Provider Internal Medicine Cardiovascular Disease; Visit Provider Internal Medicine Cardiovascular Disease
DX: R06.02 Shortness of breath (principal); R06.00 Dyspnea, unspecified
CPT/HCPCS: 78452; 93017; 93306; A9500; Q9957; A4216; C8929; J2785

== ENCOUNTER → 2021-05-02 13:44 | Outpatient (CLI) | payer MEDICARE, SELFPAY ==
--- NOTE | 2021-05-02 13:48 | ECHOCS_ITS ---
Reason For Study: Stenosis Procedure This was a 2D Doppler, Color Flow transthoracic echocardiogram. Technically difficult due to patients body habitus. Patient had difficulty staying still and controlling breathing. Contrast injection performed. Exam performed in department. Left Ventricle Normal LV size. Left ventricular systolic function is normal. The estimated ejection fraction is 70 %. Stage 1 diastolic dysfunction. No regional wall motion abnormalities noted. Right Ventricle Normal RV size. Normal systolic function. Atria Normal left atrium. Normal right atrium. Mitral Valve Normal mitral valve. Tricuspid Valve Normal tricuspid valve. Aortic Valve Mild restriction of the aortic valve. Peak aortic valve gradient 32 mmHg. Mean aortic valve gradient 16 mmHg. Mild to moderate aortic stenosis. Pulmonic Valve The pulmonic valve is not well visualized. Great Vessels Normal aortic root. The pulmonary artery is normal size. Normal inferior vena cava. Pericardium/Pleural Epicardial fat. Medication 22 gauge I.V. with prn adaptor inserted into right arm. Diluted definity 7ml given slow IV push to enhance endocardial definition. MMode/2D Measurements & Calculations LVOT diam: 2.0 cm LVOT area: 3.0 cm2 Time Measurements MV dec time: 0.34 sec Doppler Measurements & Calculations MV E max vamsi: 61.5 cm/sec Lat Peak E' Vamsi: 4.3 cm/sec Med Peak E' Vamsi: 3.9 cm/sec MV A max vamsi: 128.0 cm/sec E/E' lat: 14.4 E/E' med: 15.9 MV E/A: 0.48 MV V2 max: 147.2 cm/sec MV P1/2t max vamsi: 88.2 cm/sec Ao V2 max: 279.9 cm/sec MV max P.7 mmHg MV P1/2t: 154.7 msec Ao max P.3 mmHg MV V2 mean: 77.8 cm/sec MV dec slope: 166.9 cm/sec2 Ao V2 mean: 190.1 cm/sec MV mean P.8 mmHg Ao mean P.7 mmHg MV V2 VTI: 33.9 cm MVA(P1/2t): 1.4 cm2 Ao V2 VTI: 52.3 cm MVA(VTI): 2.0 cm2 OCTAVIO(I,D): 1.3 cm2 OCTAVIO(V,D): 1.1 cm2 LV V1 max: 101.7 cm/sec SV(LVOT): 67.6 ml PA V2 max: 86.3 cm/sec LV V1 max P.1 mmHg LV V1 mean P.4 mmHg LV V1 mean: 73.8 cm/sec LV V1 VTI: 22.6 cm ECHO/Echo Complete W/ Contrast Interpretation Summary Normal LV size. Left ventricular systolic function is normal. The estimated ejection fraction is 70 %. Stage 1 diastolic dysfunction. Mild to moderate aortic stenosis. Ordering Physician: Doris Navarro Referring Physician: Doris Navarro Performed By: Alexandre Schofield RCS
== END ==
PROVIDERS: PCP Internal Medicine; Referring Provider Internal Medicine; Visit Provider Internal Medicine
DX: I35.0 Nonrheumatic aortic (valve) stenosis (principal)
CPT/HCPCS: 93306; Q9957; A4216; C8929; J3490

== ENCOUNTER → 2021-05-11 12:43 | Outpatient (CLI) | payer MEDICARE, SELFPAY ==
--- NOTE | 2021-05-12 15:39 | PFTCOMP_ITS ---
COMPLETE PULMONARY FUNCTION TEST INTERPRETATION Brief HPI: Patient is an 81 year old female, currently under the care of Dr. Navarro, who presents to [facility] for complete pulmonary function tests secondary to diagnosis of dyspnea. Respiratory therapist reports good effort and reproducible results. Interpretation: Forced expiration spirometry shows no large airways obstructive ventilatory defect with an FEV1 of 72% predicted. There is no significant bronchodilator response by strict ATS criteria. Spirograms are of good quality and plateau slowly, indicating slowly emptying areas of the lungs. The respiratory flow volume loop shows decreased expiratory flow rates at high lung volumes consistent with small airways obstruction. Lung volumes by body plethysmography show decreased total lung capacity at 3.54 L, 69% predicted. All other lung volumes are reduced symmetrically. Diffusion capacity by carbon monoxide was unable to be completed. The airway resistance is elevated. Compared to previous pulmonary function tests from 08/11/2020, there has been no significant change. Impression: Mild restrictive ventilatory defect with no significant change compared to July.
== END ==
PROVIDERS: PCP Internal Medicine; Referring Provider Internal Medicine; Visit Provider Internal Medicine
DX: R06.02 Shortness of breath (principal)
CPT/HCPCS: 94060; 94726; 94729

== ENCOUNTER → 2021-07-24 13:25 | Outpatient (CLI) | payer MEDICARE, SELFPAY ==
--- NOTE | 2021-07-24 13:31 | RAD_ITS ---
INDICATION: COUGH EXAMINATION/TECHNIQUE: X-RAY - XR Chest 2 Views COMPARISON: 07/28/2020. FINDINGS: LINES/DEVICES: None. LUNGS: Peribronchial cuffing bilateral hilar prominence is seen that demonstrates no significant change in comparison to the prior study. No consolidation, edema or effusion. No pneumothorax. MEDIASTINUM AND CARDIOVASCULAR STRUCTURES: Cardiac silhouette is enlarged. BONES AND SOFT TISSUES: Degenerative bone changes. Bone cement consistent with vertebral augmentation visualized. RAD/Chest PA and Lateral IMPRESSION: Peribronchial cuffing and bilateral hilar prominence no evidence of focal consolidation is seen. Electronically Signed: Steven Obrien MD at 16:42 EST Tel , Service support ,
== END ==
PROVIDERS: PCP Internal Medicine; Referring Provider Internal Medicine; Visit Provider Internal Medicine
DX: R05.9 Cough, unspecified (principal)
CPT/HCPCS: 71046

== ENCOUNTER 2021-09-01 11:14 | Emergency (ER) | payer MEDICARE, SELFPAY ==
[2021-09-01 11:16] VITALS: BP 137/74; PULSE 94; RESP 14; TEMP 35.9; O2SAT 100; BMI 31.6
--- NOTE | 2021-09-01 11:27 | EX.ED.UPPERE ---
HPI History of Present Illness Chief Complaint: Upper Extremity Injury Informant: patient and spouse/S.O. Narrative Narrative: 81-year-old female states that she fell 5 days ago. She sustained a FOOSH injury to her left wrist. She notes painful range of motion. She states it is very itchy. She denies any change in soaps lotions detergents. She denies any other injuries from the fall. [facility] Medical History (Updated 09/01/21 @ 12:[address] Mack Raza, ) Acquired hypothyroidism Acute gastroenteritis Arteriosclerosis of both carotid arteries Asthma Bilateral sciatica Chronic fatigue CKD (chronic kidney disease) stage 3, GFR 30-59 ml/min Dementia Depressed mood Esophageal reflux Essential hypertension Fatty liver Heart disease Herpes zoster History of abdominal pain History of CVA (cerebrovascular accident) (01/2018) History of pancreatitis Hyperglycemia Hyperlipidemia Lumbar compression fracture Memory impairment MGUS (monoclonal gammopathy of unknown significance) Nonrheumatic aortic (valve) stenosis Obesity Opioid use, unspecified, uncomplicated Osteoarthritis Osteopenia Polyclonal gammopathy Post-polio syndrome Stress incontinence Thyromegaly Type 2 diabetes mellitus Vitamin B12 deficiency Vitamin D deficiency Weakness Home Medications amlodipine 5 mg PO DAILY 08/09/13 [History Last Taken 08/30/18 09:00] hydrochlorothiazide 25 mg PO DAILY 08/09/13 [History Last Taken 08/30/18 09:00] omeprazole 20 mg PO DAILY 08/09/13 [History Last Taken 08/30/18 09:00] albuterol sulfate 2.5 mg INHALATION Q6H PRN ml 07/08/20 [History Last Taken Unknown] clopidogrel 75 mg tablet 75 mg PO DAILY 07/08/20 [History Last Taken Unknown] gabapentin 300 mg capsule 300 mg PO TID 07/08/20 [History Last Taken Unknown] levothyroxine 200 mcg tablet 200 mcg PO DAILY 07/08/20 [History Last Taken Unknown] liothyronine 5 mcg tablet 5 mcg PO DAILY 07/08/20 [History Last Taken Unknown] rosuvastatin 5 mg tablet 10 mg PO DAILY tab 07/08/20 [History Last Taken Unknown] semaglutide 1 mg/dose (2 mg/1.5 mL) subcutaneous pen injector 1 mg SC QWEEK 07/08/20 [History Last Taken Unknown] tizanidine 2 mg capsule 2 mg PO BID PRN 07/08/20 [History Last Taken Unknown] amitriptyline 25 mg tablet 75 mg PO QHS tab 08/19/20 [History Last Taken Unknown] buspirone 10 mg tablet 20 mg PO BID tab 08/19/20 [History Last Taken Unknown] losartan 100 mg tablet 100 mg PO DAILY tab 08/19/20 [History Last Taken Unknown] metformin 500 mg tablet,extended release 24 hr 1,000 mg PO BID tab 08/19/20 [History Last Taken Unknown] metoprolol succinate 100 mg tablet,extended release 24 hr 100 mg PO DAILY tab 08/19/20 [History Last Taken Unknown] cetirizine 10 mg capsule 10 mg PO HS #30 cap 08/31/20 [Rx Last Taken Unknown] budesonide 1 mg/2 mL suspension for nebulization 0.5 mg INHALATION BID #60 ml 09/02/20 [Rx Last Taken Unknown] montelukast 10 mg tablet 10 mg PO QPM #90 tab 01/26/21 [Rx Last Taken Unknown] prednisone 60 mg PO DAILY #15 tablet 09/01/21 [Rx Last Taken Unknown] Allergy/AdvReac Type Severity Reaction Status Date / Time naproxen [From Naprosyn] Allergy Hives Verified 05/26/21 10:08 Penicillins [PCN] Allergy Hives Verified 05/26/21 10:08 guaifenesin [From Mucinex] AdvReac Unknown Verified 05/26/21 10:08 ketoprofen AdvReac Unknown Verified 05/26/21 10:08 loracarbef [From Lorabid] AdvReac Unknown Verified 05/26/21 10:08 bee sting AdvReac Unknown Uncoded 05/26/21 10:08 Family History Aunt Cancer Sister Diabetes Father Hypercholesteremia Myocardial infarction Mother Hypertension Diabetes CAD (coronary artery disease) Other Heart disease Surgical History H/O cataract removal with insertion of prosthetic lens History of cholecystectomy Social History Smoking Status: Never smoker Electronic Cigarette Use: not used alcohol intake: never substance use type: does not use ROS ROS ED Constitutional Constitutional ED: Denies chills, fever(s) or weight loss Eyes Eyes: Denies change in vision or diplopia ENT ENT ED: Denies ear pain, rhinorrhea or sore throat Cardiovascular Cardiovascular: Denies chest pain, orthopnea, palpitations or racing heartbeat Respiratory/Chest Respiratory/Chest: Denies cough, dyspnea or orthopnea Gastrointestinal Gastrointestinal: Denies abdominal pain, diarrhea, nausea or vomiting Genitourinary Genitourinary ED: Denies dysuria, hematuria or urinary frequency Musculoskeletal Musculoskeletal: Reports other Details: Left wrist pain ; Denies arthralgias or myalgias Integumentary Reports rash; Denies abscess Neurologic Neurologic: Denies headache(s) or weakness Psychiatric Psychiatric: Denies anxiety, depression, suicidal ideation or suicidal thoughts Endocrine Endocrinology: Denies polydipsia, polyphagia or polyuria Allergic/Immunologic Allergic/Immunologic ED: Denies mouth swelling, tongue swelling or urticaria EXAM Physical Exam Const Vital Signs: 09/01/21 11:16 Temperature 96.7 F L Temperature Source Temporal Pulse Rate 94 Respiratory Rate 14 Blood Pressure 137/74 H Blood Pressure Mean 95 Pulse Ox 100 Oxygen Delivery Method Room Air Positive well nourished and well developed General Appearance ED: well developed HEENT Reports normocephalic, head/scalp atraumatic and moist mucous membranes normocephalic and atraumatic Eyes PERRL and EOMs intact bilaterally Neck no lymphadenopathy, supple and no JVD Resp normal respiratory effort and clear to auscultation bilaterally Cardio regular rate, regular rhythm and no murmurs GI normal to inspection, nondistended, normoactive bowel sounds and non-tender Palpation: soft Back/Spine no CVA tenderness and normal ROM Extremity Extremity Narrative: Painful range of motion of the left wrist. Tender to palpation. Mild swelling. General Extremety ED: Negative for edema General Extremity: Negative for edema Neuro oriented x3 and CN's II-XII intact bilaterally Sensorium / Orientation: alert Motor Exam: strength 5/5 throughout Psych mental status grossly normal Mood & Affect: Negative for depressed or tearful Skin no rashes or lesions noted and no wounds Skin Narrative: There is a erythematous discrete circular 3 mm round macular rash on the arms and back. There is no weeping. No coalescing. No umbilication. MDM MDM MDM Narrative Medical decision making narrative: My interpretation of the plain films of the left wrist is an acute fracture of the distal ulna. Patient was placed in AP plaster splint. Neurovascular intact pre and post application. As far as the rash we will place her on a short course of prednisone. She will need to follow-up with orthopedics and primary care. Discharge Plan Triage Chief Complaint: Upper Extremity Injury ED Provider: Mack Raza Dx/Rx/DC Orders Clinical Impression: Atopic dermatitis, Fracture of wrist Instructions: ED Fracture, Wrist, General Prescriptions: New prednisone 20 MG tablet 60 mg PO DAILY Qty: 15 RF: 0 No Action liothyronine [Cytomel] 5 mcg tablet 5 mcg PO DAILY RF: 0 levothyroxine 200 mcg tablet 200 mcg PO DAILY RF: 0 albuterol sulfate 2.5 mg /3 mL (0.083 %) solution for nebulization 2.5 mg INHALATION Q6H PRNRF: 0 gabapentin 300 mg capsule 300 mg PO TID RF: 0 clopidogrel [Plavix] 75 mg tablet 75 mg PO DAILY RF: 0 tizanidine 2 mg capsule 2 mg PO BID PRNRF: 0 Ozempic 1 mg/dose (2 mg/1.5 mL) pen injector 1 mg SC QWEEK RF: 0 buspirone 10 mg tablet 20 mg PO BID RF: 0 amitriptyline 25 mg tablet 75 mg PO QHS RF: 0 cetirizine 10 mg capsule 10 mg PO HS Qty: 30 RF: 3 budesonide 1 mg/2 mL suspension for nebulization 0.5 mg INHALATION BID Qty: 60 RF: 6 metoprolol succinate 100 mg tablet extended release 24 hr 100 mg PO DAILY RF: 0 losartan 100 mg tablet 100 mg PO DAILY RF: 0 amlodipine 5 MG tablet 5 mg PO DAILY RF: 0 omeprazole 20 MG capsule,delayed release(DR/EC) 20 mg PO DAILY RF: 0 hydrochlorothiazide 25 MG tablet 25 mg PO DAILY RF: 0 metformin 500 mg tablet extended release 24 hr 1,000 mg PO BID RF: 0 rosuvastatin 5 mg tablet 10 mg PO DAILY RF: 0 montelukast 10 mg tablet 10 mg PO QPM Qty: 90 RF: 3 Primary Care Provider: Doris Navarro Referrals: Doris Navarro DO [Primary Care Provider] - Edd Teixeira DO [STAFF PHYSICIAN] - As soon as possible (for orthopedics ) Disposition Disposition: Home, Self Care
--- NOTE | 2021-09-01 11:40 | RAD_ITS ---
STUDY: X-RAY - LEFT WRIST REASON FOR EXAM: Female, 81 years old. Injury TECHNIQUE: 3 view(s) of the wrist were obtained. COMPARISON: None. FINDINGS: Nondisplaced oblique fracture of the distal metaphysis of the ulna. Normal radiocarpal articulation. Normal distal radioulnar articulation. Normal carpal bones. Normal carpal articulations. There is degenerative arthrosis of the carpometacarpal articulation of the thumb. Normal second through fifth carpometacarpal articulations. Normal visualized metacarpal bones. Soft tissue swelling. RAD/Wrist min 3 Views IMPRESSION: There is a nondisplaced oblique fracture of the distal metaphysis of the ulna. Soft tissue swelling. Electronically Signed: Teo Garrido MD at 12:19 EST ,
== END 2021-09-01 12:23 | disposition home or self-care (01) ==
PROVIDERS: Emergency Provider Emergency Medicine; PCP Internal Medicine; Visit Provider Emergency Medicine
DX: L20.9 Atopic dermatitis, unspecified (principal); S62.102A Fracture of unspecified carpal bone, left wrist, initial encounter for closed fracture; W19.XXXA Unspecified fall, initial encounter
CPT/HCPCS: 29125; 73110; 99282

== ENCOUNTER 2021-10-11 13:00 | Outpatient (CLI) | payer MEDICARE, SELFPAY | END 2021-10-11 23:59 | disposition home or self-care (01) | LOC: LABSPEC 13:02 | PROVIDERS: PCP Internal Medicine; Visit Provider Internal Medicine | DX: E03.9 Hypothyroidism, unspecified (principal) | CPT/HCPCS: 84443 ==

== ENCOUNTER → 2022-11-12 | Outpatient (CLI) | payer MEDICARE, SELFPAY ==
--- NOTE | 2022-11-12 11:37 | RAD_ITS ---
STUDY: X-RAY - LUMBAR SPINE REASON FOR EXAM: Female, 82 years old. Pain. TECHNIQUE: 2 view(s) of the lumbar spine were obtained. COMPARISON: June 2019. FINDINGS: Osteopenia. Normal lumbar lordosis. There is no substantial scoliosis. There is a normal alignment of the vertebrae. Endplate concavities compatible with osteoporosis, relatively unchanged. Vertebroplasty of the L2 vertebral body. Marked anterior compression deformity of L1 which is new. Progression of disc degeneration with osteophyte formation most marked at L4-5. Vascular calcification. RAD/Lumbar Spine 2 or 3 Views IMPRESSION: Osteopenia with endplate concavities compatible with osteoporosis. Marked anterior wedge compression deformity of the L1 vertebral body which is new since the prior study. New kyphoplasty/vertebroplasty of the L2 vertebral body. Progression of intervertebral disc space narrowing with osteophyte formation. Electronically Signed: Ceferino Maurer, at 13:02 EDT ,
--- NOTE | 2022-11-12 11:39 | RAD_ITS ---
STUDY: X-RAY - SACRUM/COCCYX REASON FOR EXAM: Female, 82 years old. Pain. Intervertebral disc degeneration. TECHNIQUE: 3 view(s) of the sacrum and coccyx were obtained. COMPARISON: None. FINDINGS: Osteopenia. Normal bilateral sacroiliac joints. Normal visualized sacral ala and fused sacral bodies. Normal sacrococcygeal junction with a normal angulation. Normal coccygeal segments. Moderate lower lumbosacral spondylosis most marked at L4-5. The presacral soft tissue structures are normal. STUDY: X-RAY - SACRUM/COCCYX REASON FOR EXAM: Female, 82 years old. Pain. Intervertebral disc degeneration. TECHNIQUE: 3 view(s) of the sacrum and coccyx were obtained. COMPARISON: None. FINDINGS: Osteopenia. RAD/Sacrum-Coccyx min 2 Views IMPRESSION: Osteopenia with lower lumbosacral spondylosis as described. No acute abnormality, evidence of erosive changes/fusion. Electronically Signed: Ceferino Maurer, at 13:03 EDT ,
== END | disposition home or self-care (01) ==
PROVIDERS: PCP Internal Medicine; Visit Provider Anesthesiology Pain Medicine
DX: M51.37 Other intervertebral disc degeneration, lumbosacral region (principal); M46.1 Sacroiliitis, not elsewhere classified
CPT/HCPCS: 72100; 72220

== ENCOUNTER 2023-03-07 23:13 | Emergency (ER) | payer MEDICARE, SELFPAY ==
[2023-03-07 23:14] VITALS: BP 162/49; PULSE 80; RESP 16; TEMP 36.7; O2SAT 97
--- NOTE | 2023-03-07 23:30 | RAD_ITS ---
INDICATION: FALL EXAMINATION/TECHNIQUE: X-RAY - LEFT XR Shoulder Min 2 Views 4 VIEWS COMPARISON: May 14, 2018 FINDINGS: SOFT TISSUES: No soft tissue swelling or gas. No radiopaque foreign body. Mild aortic atherosclerosis. BONES/JOINTS: No acute fracture. No Hill-Sachs or Bankart lesion.. Normal alignment. Mild acromioclavicular and glenohumeral osteoarthritis... No sclerotic or destructive changes observed. RAD/Shoulder min 2 Views IMPRESSION: Mild acromioclavicular and glenohumeral osteoarthritis.. No acute osseous finding. Electronically Signed: Conner Wilkerson MD at 23:52 EDT ,
--- NOTE | 2023-03-08 00:37 | EDS_ITS ---
HPI HPI - Fall History of Present Illness Chief Complaint: Fall Narrative Narrative: 83-year-old female past medical history of hypertension, hyperlipidemia, history of CVA on Plavix presents with injury to her left shoulder and to her head that she sustained a few hours ago. She states that her company had just left and she had sent a few cups in the sink, and was walking and tripped on the toe of her shoe. She fell forward and hit her left shoulder into the wall/floor, and she hit the left side of her head. She denies any loss of consciousness, no neck pain, no current headache but more pain with movement of her left shoulder. She is right-hand dominant. She denies other injuries except for to her head and to her left shoulder. [facility] Medical History (Updated 03/08/23 @ 01:41 by Buck Arambula MD) Acquired hypothyroidism Acute gastroenteritis Arteriosclerosis of both carotid arteries Asthma Bilateral sciatica Chronic fatigue CKD (chronic kidney disease) stage 3, GFR 30-59 ml/min Dementia Depressed mood Esophageal reflux Essential hypertension Fatty liver Heart disease Herpes zoster History of abdominal pain History of CVA (cerebrovascular accident) (01/2018) History of pancreatitis Hyperglycemia Hyperlipidemia Lumbar compression fracture Memory impairment MGUS (monoclonal gammopathy of unknown significance) Nonrheumatic aortic (valve) stenosis Obesity Opioid use, unspecified, uncomplicated Osteoarthritis Osteopenia Polyclonal gammopathy Post-polio syndrome Stress incontinence Thyromegaly Type 2 diabetes mellitus Vitamin B12 deficiency Vitamin D deficiency Weakness Home Medications amlodipine 5 mg tablet 5 mg PO DAILY Blood Pressure 08/09/13 [History Last Taken 08/30/18 09:00] hydrochlorothiazide 25 mg tablet 25 mg PO DAILY Diuretic 08/09/13 [History Last Taken 08/30/18 09:00] omeprazole 20 mg capsule,delayed release 20 mg PO DAILY Heart Burn 08/09/13 [History Last Taken 08/30/18 09:00] albuterol sulfate 2.5 mg/3 mL (0.083 %) solution for nebulization 2.5 mg inhalation Q6H PRN 07/08/20 [History Last Taken Unknown] clopidogrel 75 mg tablet (Plavix) 75 mg PO DAILY 07/08/20 [History Last Taken Unknown] gabapentin 300 mg capsule 300 mg PO TID 07/08/20 [History Last Taken Unknown] levothyroxine 200 mcg tablet 200 mcg PO DAILY 07/08/20 [History Last Taken Unknown] liothyronine 5 mcg tablet (Cytomel) 5 mcg PO DAILY 07/08/20 [History Last Taken Unknown] rosuvastatin 5 mg tablet 10 mg PO DAILY cholestrol 07/08/20 [History Last Taken Unknown] semaglutide 1 mg/dose (2 mg/1.5 mL) subcutaneous pen injector (Ozempic) 1 mg subcut QWEEK 07/08/20 [History Last Taken Unknown] tizanidine 2 mg capsule 2 mg PO BID PRN 07/08/20 [History Last Taken Unknown] amitriptyline 25 mg tablet 75 mg PO QHS 08/19/20 [History Last Taken Unknown] buspirone 10 mg tablet 20 mg PO BID 08/19/20 [History Last Taken Unknown] losartan 100 mg tablet 100 mg PO DAILY 08/19/20 [History Last Taken Unknown] metformin 500 mg tablet,extended release 24 hr 1,000 mg PO BID 08/19/20 [History Last Taken Unknown] metoprolol succinate 100 mg tablet,extended release 24 hr 100 mg PO DAILY 08/19/20 [History Last Taken Unknown] cetirizine 10 mg capsule 10 mg PO HS #30 caps 08/31/20 [Rx Last Taken Unknown] budesonide 1 mg/2 mL suspension for nebulization 0.5 mg inhalation BID #60 mL 09/02/20 [Rx Last Taken Unknown] montelukast 10 mg tablet 10 mg PO QPM #90 tabs 01/26/21 [Rx Last Taken Unknown] prednisone 20 mg tablet 60 mg (3 x 20 mg) PO DAILY #15 TABLETS 09/01/21 [Rx Last Taken Unknown] Allergy/AdvReac Type Severity Reaction Status Date / Time naproxen [From Naprosyn] Allergy Hives Verified 03/07/23 23:20 Penicillins [PCN] Allergy Hives Verified 03/07/23 23:20 guaifenesin [From Mucinex] AdvReac Unknown Verified 03/07/23 23:20 ketoprofen AdvReac Unknown Verified 03/07/23 23:20 loracarbef [From Lorabid] AdvReac Unknown Verified 03/07/23 23:20 venom-honey bee AdvReac NEEDS Verified 03/07/23 23:20 FOLLOW-UP Family History Aunt Cancer Sister Diabetes Father Hypercholesteremia Myocardial infarction Mother Hypertension Diabetes CAD (coronary artery disease) Other Heart disease Surgical History H/O cataract removal with insertion of prosthetic lens History of cholecystectomy Social History Smoking Status: Never smoker Electronic Cigarette Use: not used alcohol intake: never substance use type: does not use ROS ROS ED ROS Narrative Constitutional: No fever, no chills. HEENT: No sore throat. No neck pain. No loss of vision. No rhinorrhea. Struck left side of head/temporal area. Cardiovascular: No chest pain. No palpitations. No pedal edema. Respiratory: No cough, no shortness of breath. Abdominal: No abdominal pain. No nausea. No vomiting. Genitourinary: No dysuria. No hematuria. Musculoskeletal: No myalgias. Left shoulder pain with slight bruising. Neurologic: No headaches. No dizziness. No lightheadedness. Skin: No rash. No change in color. Psychiatric: No depression. No anxiety. EXAM Physical Exam Narrative Exam Narrative: Afebrile. Vital signs noted. GCS 15. ABCs are intact. HEENT: Normocephalic. Mild tenderness to palpation left temporoparietal area without crepitance, no noted laceration. PERRL, EOMI. Neck soft and supple. No point tenderness or step off. Full range of motion without pain. Cardiovascular: Regular rate and rhythm. No murmurs, rubs, or gallops appreciated. Respiratory: No tachypnea. Lungs clear to auscultation bilaterally. Gastrointestinal: Abdomen soft, nontender, with normoactive bowel sounds. No rebound or guarding. Neurological: Awake. Alert. Nonfocal, nonlateralizing. Skin: No rash. Normal color. No pallor. Musculoskeletal: No pedal edema. Decreased range of motion left shoulder with diffuse tenderness to palpation, slight ecchymosis near humeral head. Able to raise arm, but range of motion slightly limited secondary to pain. Palpable radial pulse, left.. Const Vital Signs: 03/07/23 23:14 03/08/23 00:13 Temperature 98.0 F Temperature Source Temporal Pulse Rate 80 Respiratory Rate 16 Respiratory Effort Normal Non-Labored Blood Pressure 162/49 H Blood Pressure Mean 86 Pulse Ox 97 Oxygen Delivery Method Room Air MDM MDM MDM Narrative Medical decision making narrative: In the differential diagnosis is shoulder fracture versus dislocation versus contusion. Additionally, concern would be for intracranial hemorrhage as she is on Plavix and struck the left side of her head, but her not having any headache or neck pain goes against this. Regardless, given her age, I added a CT of the brain to check for skull fracture or hemorrhage. I reviewed and interpreted 2 views of her shoulder and see no evidence of fracture or dislocation. I reviewed the radiology report which confirms my independent interpretation. After negative CT of the brain being negative, she will be administered Tylenol for analgesia. I do not feel that sling would be indicated as she needs to exercise her left shoulder to prevent adhesive capsulitis. I reviewed her CT imaging, and reviewed the radiology report which shows no evidence of intracranial hemorrhage or skull fracture. Patient then declined Tylenol stating that she would take it at home. At this point in time, I feel she can be discharged safely home with follow-up to her primary care provider. Return instructions to the emergency department were reviewed. Patient and are agreeable to the plan. I do not feel she requires observation or admission at this time. Disposition is discharged home in stable condition. History & Record Review Discussion w/independent historian: Patient and Family Additional record(s) reviewed:: Prior ED visit Radiography Diagnostic Testing: Clinical Impression(s) from Imaging Studies Shoulder X-Ray 03/07/23 23:30 IMPRESSION: Mild acromioclavicular and glenohumeral osteoarthritis.. No acute osseous finding. Electronically Signed: Conner Wilkerson MD at 23:52 EDT , Brain CT 03/08/23 00:37 IMPRESSION: No CT evidence of acute intracranial hemorrhage or injury. Moderate senescent changes with atherosclerosis Electronically Signed: Conner Wilkerson MD at 1:31 EDT , Discharge Plan Triage Chief Complaint: Fall ED Provider: Buck Arambula Dx/Rx/DC Orders Clinical Impression: Closed head injury, Contusion of left shoulder, Fall Instructions: ED Head Injury (Adult), ED Shoulder Contusion Prescriptions: No Action liothyronine [Cytomel] 5 mcg tablet 5 mcg PO DAILY levothyroxine 200 mcg tablet 200 mcg PO DAILY Rx Instructions: Daily 6 days a week and 1/2 tab on Sundays albuterol sulfate 2.5 mg /3 mL (0.083 %) solution for nebulization 2.5 mg INHALATION Q6H PRN gabapentin 300 mg capsule 300 mg PO TID clopidogrel [Plavix] 75 mg tablet 75 mg PO DAILY tizanidine 2 mg capsule 2 mg PO BID PRN Ozempic 1 mg/dose (2 mg/1.5 mL) pen injector 1 mg SC QWEEK buspirone 10 mg tablet 20 mg PO BID amitriptyline 25 mg tablet 75 mg PO QHS cetirizine 10 mg capsule 10 mg PO HS Qty: 30 3RF budesonide 1 mg/2 mL suspension for nebulization 0.5 mg INHALATION BID Qty: 60 6RF metoprolol succinate 100 mg tablet extended release 24 hr 100 mg PO DAILY losartan 100 mg tablet 100 mg PO DAILY amlodipine 5 MG tablet 5 mg PO DAILY Patient Comments: BLOOD PRESSURE omeprazole 20 MG capsule,delayed release(DR/EC) 20 mg PO DAILY Patient Comments: ACID REFLUX hydrochlorothiazide 25 MG tablet 25 mg PO DAILY Patient Comments: WATER PILL metformin 500 mg tablet extended release 24 hr 1,000 mg PO BID rosuvastatin 5 mg tablet 10 mg PO DAILY prednisone 20 MG tablet 60 mg PO DAILY Qty: 15 0RF montelukast 10 mg tablet 10 mg PO QPM Qty: 90 3RF Primary Care Provider: Doris Navarro Referrals: Doris Navarro DO [Primary Care Provider] - 3-5 Days if not improving Disposition Disposition: Home, Self Care
--- NOTE | 2023-03-08 00:37 | CT_ITS ---
INDICATION: Head Injury on Plavix EXAMINATION: CT BRAIN - CT Head or Brain W/O Contrast Injection TECHNIQUE: Multiple axial images were obtained of the head without intravenous contrast. A radiation dose optimization technique was used for this scan. IV Contrast dosage and agent: None. COMPARISON: October 05, 2019 FINDINGS: BRAIN PARENCHYMA: No intra- or extra-axial hemorrhage. No evidence of acute infarct. No intracranial mass or mass effect. Moderate patchy periventricular and subcortical white matter hypodense chronic small vessel white matter ischemic change. There is preservation of the anderson/white matter interface. Posterior fossa structures are unremarkable. Carotid and vertebral atherosclerosis. CSF SPACES: Moderate global cerebral volume loss. No hydrocephalus. Basal cisterns are patent. CALVARIUM, SKULL BASE, PARANASAL SINUSES AND MASTOID AIR CELLS: Metallic ear piercings. No acute osseous finding. Minimal scattered paransal sinus mucoperisteal thickening. Mastoid air cells are clear. ORBITS: Both globes, extraocular muscles, optic nerves and retrobulbar fat appear unremarkable. ASPECTS Score for Acute Strokes: 10 CT/Brain/Head without Contrast IMPRESSION: No CT evidence of acute intracranial hemorrhage or injury. Moderate senescent changes with atherosclerosis Electronically Signed: Conner Wilkerson MD at 1:31 EDT Reading Location ID and State: [facility] / [place] Tel , Service support ,
[2023-03-08 01:55] VITALS: PULSE 73; RESP 16; O2SAT 95
== END 2023-03-08 01:57 | disposition home or self-care (01) ==
PROVIDERS: Emergency Provider Emergency Medicine; PCP Internal Medicine; Visit Provider Emergency Medicine
DX: S09.90XA Unspecified injury of head, initial encounter (principal); N18.30 Chronic kidney disease, stage 3 unspecified; S40.012A Contusion of left shoulder, initial encounter; Z86.73 Personal history of transient ischemic attack (TIA), and cerebral infarction without residual deficits; Z79.01 Long term (current) use of anticoagulants; W19.XXXA Unspecified fall, initial encounter
CPT/HCPCS: 70450; 73030; 99282

== ENCOUNTER 2023-05-24 10:45 | Observation (INO) | payer MEDICARE, SELFPAY ==
[2023-05-24] VITALS (15 sets, daily range): BP systolic 139–173; BP diastolic 64–140; PULSE 89–109; RESP 16–24; TEMP 36.5–36.6; O2SAT 92–100; BMI 34.0; BMI 30.1
--- NOTE | 2023-05-24 11:02 | CT_ITS ---
STUDY: CT HEAD STROKE PROTOCOL W/O CONTRAST INJECTION REASON FOR EXAM: Female, 83 years old. Neuro deficit, acute, stroke suspected RADIATION DOSAGE (If Supplied By Facility): CTDIvol = ( 44.99 ) mGy, DLP = ( 779.24 ) mGycm TECHNIQUE: Transaxial CT imaging of the brain was performed without administration of intravenous contrast material. Individualized dose optimization techniques were used for this CT. COMPARISON: Comparison is made with prior study March 08, 2023. FINDINGS: Normal soft tissue structures. Normal calvarium. There is mild cerebral atrophy with widening of the extra-axial spaces and ventricular dilatation. There are areas of decreased attenuation within the white matter tracts of the supratentorial brain, consistent with microvascular disease changes. Normal basal ganglia and thalami. Normal brainstem. Normal cerebellum. There is no intracranial hemorrhage. There are no findings of an acute ischemic infarction. Atherosclerotic calcification of the vertebral arteries and cavernous portions of the internal carotid arteries bilaterally. Minimal mucosal thickening along the medial wall of the left maxillary sinus. ASPECT score: 10 CT/STROKE Brain/Head without Cont IMPRESSION: Chronic involutional changes of the brain. Stable examination. N.B. : The above Results were Read Back by Teo Garrido MD to Maximus Bahena MD, and understanding confirmed on 05/24/2023 11:24:57 (ET). Electronically Signed: Teo Garrido MD at 11:26 EDT ,
--- NOTE | 2023-05-24 11:02 | CT_ITS ---
STUDY: CTA HEAD AND NECK WITH CONTRAST REASON FOR EXAM: Female, 83 years old. Neuro deficit, acute, stroke suspected RADIATION DOSAGE (If Supplied By Facility): CTDIvol = ( 45.79 ) mGy, DLP = ( 705.63 ) mGycm TECHNIQUE: CT angiography was performed with a multi-detector CT scanner. Data acquisition was obtained from the skull base through the vertex following intravenous administration of IV 100mL [id number]-370. MIP images were reconstructed from the axial data set. Post-processing of the angiographic images was performed, with multiplanar reformation and 3D reconstruction. Individualized dose optimization techniques were used for this CT. COMPARISON: Comparison is made with prior examination dated October 08, 2011. FINDINGS: Normal bilateral petrous carotid arteries. There is calcified plaque formation of the right cavernous carotid artery, without a cross-sectional luminal stenosis. There is calcified plaque formation of the left cavernous carotid artery, without a cross-sectional luminal stenosis. Normal right A1 segments of the anterior cerebral artery. Normal left A1 segments of the anterior cerebral artery. Normal intact anterior communicating artery (ACOM). Normal bilateral A2 segments of the anterior cerebral arteries. Normal right M1 and M2 segments of the middle cerebral arteries, with a normal M1 bifurcation. Normal left M1 and M2 segments of the middle cerebral arteries, with a normal M1 bifurcation. Normal right posterior communicating artery (PCOM). Normal left posterior communicating artery (PCOM). Normal bilateral vertebral arteries. Normal basilar artery with a normal basilar bifurcation. The visualized bilateral superior cerebellar (SCA) arteries are normal. Normal bilateral P1, P2 and visualized P3 segments of the posterior cerebral arteries. There is no demonstrated aneurysm of the [place]. There is no demonstrated abnormality of the visualized brain. AORTIC ARCH: There is atherosclerotic calcific plaque formation of the aortic arch and great vessels arising from the aortic arch, without a hemodynamically significant stenosis. There is a bovine origin of the great vessels with a common origin of the brachiocephalic and left common carotid artery. Normal origin of the left subclavian artery. RIGHT CAROTID ARTERIES: Normal right common carotid artery (CCA). Normal right common carotid bulb. Normal origin of the right internal carotid (ICA) artery without a hemodynamically significant stenosis. Normal visualized cervical portion of the right internal carotid artery. Normal origin of the right external carotid artery (ECA). LEFT CAROTID ARTERIES: Normal left common carotid artery (CCA). Normal left common carotid bulb. There is mild atherosclerotic plaque formation of the origin of the left internal carotid artery with less than 50% cross sectional diameter stenosis. Normal visualized cervical portion of the left internal carotid artery. Normal origin of the left external carotid artery (ECA). VERTEBRAL ARTERIES: Normal bilateral vertebral arteries. CT/STROKE CTA Head AND Neck W/Con IMPRESSION: Minimal plaque formation at the origin of the left internal carotid artery without significant luminal stenosis. N.B. : The above Results were Read Back by Teo Garrido MD to Dr Josef MD, and understanding confirmed on 05/24/2023 12:19:04 (ET). Electronically Signed: Teo Garrido MD at 12:20 EDT ,
--- NOTE | 2023-05-24 11:06 | ED.VIS.STROK ---
HPI History of Present Illness Chief Complaint: Numb/Ting Detail of Chief Complaint: Intermittent numbness entire left upper extremity. Informant: patient and spouse/S.O. Onset/Context/Timing Onset: Days (First episode occurred 2 days ago.) Context: Sudden Onset Timing: Intermittent (Lasting hours) Quality and Location: Positive for Left Arm Parasthesia; Negative for Right Facial Droop, Left Facial Droop, Right Face Paresthesia, Left Face Parasthesia, Right Arm Parasthesia, Right Leg Parasthesia, Left Leg Parasthesia, Right Arm Weakness, Left Arm Weakness, Right Leg Weakness, Left Leg Weakness, Slurred Speech, Expressive Aphasia, Receptive Aphasia or Difficulty with Ambulation Onset: As I was examining the patient Current Severity: Mild Maximum Severity: Mild Worsened by: Nothing Relieved by: Nothing Associated Symptoms Associated Symptoms: Positive for Chest Pain; Negative for Headache, Nausea or Vomiting Narrative Narrative: Patient is a 83-year-old woman with past medical history of hypertension, hyperlipidemia, stroke January 2018, obstructive sleep apnea and chronic stage III kidney disease. Patient states she was not doing them when she had chest discomfort yesterday. It was bilateral. There is no radiation. There is no associated symptoms. It was discomfort. She has history of heart murmur. She does not have history of coronary artery disease. Patient's been compliant with her medication. Patient states she had intermittent numbness that started approximately 3 days ago. Her entire arm will go numb. It is lasted hours. There are no precipitating, alleviating or exacerbating symptoms. She has no other symptoms. Prior similar symptoms: Yes Recent Illness/Hospitalization: No [facility] Medical History (Updated 05/24/23 @ 13:[address] Maximus Bahena MD) Acquired hypothyroidism Acute gastroenteritis Arteriosclerosis of both carotid arteries Asthma Bilateral sciatica Chronic fatigue CKD (chronic kidney disease) stage 3, GFR 30-59 ml/min Dementia Depressed mood Esophageal reflux Essential hypertension Fatty liver Heart disease Herpes zoster History of abdominal pain History of CVA (cerebrovascular accident) (01/2018) History of pancreatitis Hyperglycemia Hyperlipidemia Lumbar compression fracture Memory impairment MGUS (monoclonal gammopathy of unknown significance) Nonrheumatic aortic (valve) stenosis Obesity Opioid use, unspecified, uncomplicated Osteoarthritis Osteopenia Polyclonal gammopathy Post-polio syndrome Stress incontinence Thyromegaly Type 2 diabetes mellitus Vitamin B12 deficiency Vitamin D deficiency Weakness Home Medications amlodipine 5 mg tablet 5 mg PO DAILY Blood Pressure 08/09/13 [History Last Taken 05/23/23] hydrochlorothiazide 25 mg tablet 25 mg PO DAILY Diuretic 08/09/13 [History Last Taken 05/23/23] omeprazole 20 mg capsule,delayed release 20 mg PO DAILY Heart Burn 08/09/13 [History Last Taken 05/23/23] albuterol sulfate 2.5 mg/3 mL (0.083 %) solution for nebulization 2.5 mg inhalation Q6H PRN shortness of breath or wheezing 07/08/20 [History Last Taken Unknown] clopidogrel 75 mg tablet (Plavix) 75 mg PO DAILY 07/08/20 [History Last Taken 05/23/23] gabapentin 300 mg capsule 300 mg PO TID 07/08/20 [History Last Taken 05/23/23] levothyroxine 200 mcg tablet 200 mcg PO DAILY 07/08/20 [History Last Taken 05/23/23] liothyronine 5 mcg tablet (Cytomel) 5 mcg PO DAILY 07/08/20 [History Last Taken 05/23/23] rosuvastatin 5 mg tablet 10 mg PO DAILY cholestrol 07/08/20 [History Last Taken 05/23/23] tizanidine 2 mg capsule 2 mg PO BID PRN muscle spasticity 07/08/20 [History Last Taken Unknown] amitriptyline 25 mg tablet 75 mg PO QHS 08/19/20 [History Last Taken 05/23/23] buspirone 10 mg tablet 20 mg PO BID 08/19/20 [History Last Taken 05/23/23] losartan 100 mg tablet 100 mg PO DAILY 08/19/20 [History Last Taken 05/23/23] metformin 500 mg tablet,extended release 24 hr 1,000 mg PO BID 08/19/20 [History Last Taken 05/23/23] metoprolol succinate 100 mg tablet,extended release 24 hr 100 mg PO DAILY 08/19/20 [History Last Taken 05/23/23] cetirizine 10 mg capsule 10 mg PO HS #30 caps 08/31/20 [Rx Last Taken 05/23/23] budesonide 1 mg/2 mL suspension for nebulization 0.5 mg inhalation BID #60 mL 09/02/20 [Rx Last Taken Unknown] montelukast 10 mg tablet 10 mg PO QPM #90 tabs 01/26/21 [Rx Last Taken 05/23/23] Allergy/AdvReac Type Severity Reaction Status Date / Time naproxen [From Naprosyn] Allergy Hives Verified 05/24/23 10:48 Penicillins [PCN] Allergy Hives Verified 05/24/23 10:48 guaifenesin [From Mucinex] AdvReac Unknown Verified 05/24/23 10:48 ketoprofen AdvReac Unknown Verified 05/24/23 10:48 loracarbef [From Lorabid] AdvReac Unknown Verified 05/24/23 10:48 venom-honey bee AdvReac NEEDS Verified 05/24/23 10:48 FOLLOW-UP Family History Aunt Cancer Sister Diabetes Father Hypercholesteremia Myocardial infarction Mother Hypertension Diabetes CAD (coronary artery disease) Other Heart disease Surgical History H/O cataract removal with insertion of prosthetic lens History of cholecystectomy Social History (Updated 05/24/23 @ 11:[address] Maximus Bahena MD) household members: spouse Smoking Status: Never smoker Electronic Cigarette Use: not used alcohol intake: never substance use type: does not use ROS ROS ED Constitutional Constitutional ED: Denies chills, fever(s), subjective, sweats or weakness Eyes Eyes: Denies blurry vision, change in vision or diplopia ENT ENT ED: Denies ear pain, rhinorrhea or sore throat Cardiovascular Cardiovascular: Reports chest pain; Denies palpitations, paroxysmal nocturnal dyspnea or racing heartbeat Respiratory/Chest Respiratory/Chest: Denies cough, dyspnea, dyspnea on exertion or paroxysmal nocturnal dyspnea Gastrointestinal Gastrointestinal: Denies abdominal pain, constipation, melena, nausea or vomiting Genitourinary Genitourinary ED: Denies dysuria, hematuria or urinary frequency Musculoskeletal Musculoskeletal: Denies arthralgias, back pain, myalgias or neck pain Integumentary Denies abscess, Abrasions or rash Neurologic Neurologic: Reports paresthesias LUE; Denies headache(s) or weakness Psychiatric Psychiatric: Denies anxiety Endocrine Endocrinology: Denies polydipsia, polyphagia or polyuria Hematologic/Lymphatic Hematologic/Lymphatic: Denies easy bleeding or easy bruising EXAM Physical Exam Const Vital Signs: 05/24/23 10:45 05/24/23 11:09 05/24/23 11:02 Temperature 98 F 98 F Temperature Source Temporal Temporal Pulse Rate 98 98 Respiratory Rate 18 18 Blood Pressure 158/84 H 158/84 H Blood Pressure Mean 108 108 Pulse Ox 97 95 95 Oxygen Delivery Method Room Air Room Air Room Air 05/24/23 11:22 05/24/23 11:25 05/24/23 11:30 Temperature Temperature Source Pulse Rate 96 96 95 Respiratory Rate 22 H 20 H 19 H Blood Pressure 159/77 H 159/77 H 151/64 H Blood Pressure Mean 104 104 93 Pulse Ox 96 92 92 Oxygen Delivery Method Room Air Room Air Room Air 05/24/23 11:40 05/24/23 12:13 05/24/23 12:38 Temperature Temperature Source Pulse Rate 93 98 94 Respiratory Rate 18 19 H 20 H Blood Pressure 144/64 H 173/131 H 166/96 H Blood Pressure Mean 90 145 119 Pulse Ox 93 99 98 Oxygen Delivery Method Room Air Room Air Room Air 05/24/23 13:00 05/24/23 13:00 Temperature Temperature Source Pulse Rate 89 89 Respiratory Rate 16 16 Blood Pressure 139/70 H 139/70 H Blood Pressure Mean 93 93 Pulse Ox 98 98 Oxygen Delivery Method Room Air Room Air Positive well nourished, well developed and obese General Appearance ED: well developed and NAD Nutritional Appearance: obese HEENT Reports TM's clear and moist mucous membranes atraumatic Nose: other Other Details: Nares patent. Posterior pharyngeal erythema exudate. Uvula is midline. There is no deviation with protrusion. Tympanic Membrane ED: Yes TM's clear Eyes PERRL and EOMs intact bilaterally Eyes Narrative: There is no nystagmus. General Eye ED: Negative for pale conjunctiva or scleral icterus Neck no lymphadenopathy, supple and no JVD Chest Wall inspection of chest normal and palpation of chest normal Resp normal respiratory effort and clear to auscultation bilaterally Cardio no murmurs Rate: regular rate Rhythm: regular rhythm Heart Sounds: S1 normal and S2 normal GI normal to inspection, nondistended, normoactive bowel sounds, soft to palpation, non-tender, non-distended and no masses Back/Spine no CVA tenderness Extremity normal to inspection Extremity Narrative: Altered sensation left upper extremity. General Extremety ED: Negative for deformity or tenderness General Extremity: Negative for deformity Neuro oriented x3, CN's II-XII intact bilaterally and No no sensory deficits noted [place] Coma Scale: document GCS findings Spontaneous Obeys Commands Oriented 15 Sensorium / Orientation: alert Speech: speech normal Gait (Neuro): normal gait Motor Exam: strength 5/5 throughout Psych mental status grossly normal Skin no wounds Lesions: no lesions Rashes: no rashes NIHSS NIHSS Initial: 1a Level of Consciousness: 0 1b LOC Questions (Score 2 if aphasic/stupor): 0 1c LOC Commands (Only score 1st attempt): 0 2 Best Gaze (If aphasic, use reflexive mvmts.): 0 3 Visual: 0 4 Facial Palsy: 0 5 Motor Arm Right (UN = amputation/fusion): 0 5 Motor Arm Left: 0 6 Motor Leg Right: 0 6 Motor Leg Left: 0 7 Limb ataxia (Only + if out of proportion): 0 8 Sensory (Aphasia/stupor=0 or 1, coma=2): 1 9 Best Language: 0 10 Dysarthria (mute, coma=2, intubated=UN): 0 11 Extinction and Inattention (only scored if +): 0 Total Score: 1 MDM MDM MDM Narrative Medical decision making narrative: Patient having stuttering symptoms per. Concerned she may have a significant lesion on the right side. Will obtain CT of the head as well as CTA of the head and neck to assess for any critical stenosis. Stroke order set was initiated. Troponin was obtained since she is also complained of chest discomfort yesterday. The chest discomfort lasted for some time. She could not be more specific. History & Record Review Additional record(s) reviewed:: Prior outpatient record (Patient had a stroke January 2018.), Prior ED visit and Prior labs Lab Data Attestation: I reviewed the patient's lab results. Lab results narrative: CBC unremarkable. Coags normal. Labs: Laboratory Results - last 24 hr 05/24/23 05/24/23 11:15 11:23 WBC 5.6 RBC 3.84 L Hgb 10.5 L Hct 33.2 L MCV 86.5 MCH 27.3 MCHC 31.6 L RDW Std Deviation 41.8 RDW Coeff of Juanito 13.5 Plt Count 203 MPV 10.0 Immature Gran % (Auto) 0.400 Neut % (Auto) 66.8 Lymph % (Auto) 22.9 Nicholas % (Auto) 5.6 Eos % (Auto) 3.6 Baso % (Auto) 0.7 Absolute Neuts (auto) 3.7 Absolute Lymphs (auto) 1.28 Nucleated RBC % 0 PT 12.3 INR 0.9 APTT 27.4 Sodium 137 Potassium 3.9 Chloride 104 Carbon Dioxide 27.0 Anion Gap 6 BUN 16 Creatinine 1.31 H Estim Creat Clear Calc 29.79 Est GFR (MDRD) Af Amer 50 L Est GFR (MDRD) Non-Af 41 L BUN/Creatinine Ratio 12.2 Glucose 215 H Calcium 8.1 L Troponin I High Sens 18 POC Glucose 199 H Radiography Diagnostic Testing: Clinical Impression(s) from Imaging Studies Brain CT 05/24/23 11:02 IMPRESSION: Chronic involutional changes of the brain. Stable examination. N.B. : The above Results were Read Back by Teo Garrido MD to Maximus Bahena MD, and understanding confirmed on 05/24/2023 11:24:57 (ET). Electronically Signed: Teo Garrido MD at 11:26 EDT , ADDENDUM: 05/24/23 1132 IMPRESSION: Chronic involutional changes of the brain. Stable examination. N.B. : The above Results were Read Back by Teo Garrido MD to Maximus Bahena MD, and understanding confirmed on 05/24/2023 11:24:57 (ET). Electronically Signed: Teo Garrido MD at 11:26 EDT , Head/Neck CTA 05/24/23 11:02 IMPRESSION: Minimal plaque formation at the origin of the left internal carotid artery without significant luminal stenosis. N.B. : The above Results were Read Back by Teo Garrido MD to Dr Josef MD, and understanding confirmed on 05/24/2023 12:19:04 (ET). Electronically Signed: Teo Garrido MD at 12:20 EDT , ADDENDUM: 05/24/23 1227 IMPRESSION: Minimal plaque formation at the origin of the left internal carotid artery without significant luminal stenosis. N.B. : The above Results were Read Back by Teo Garrido MD to Dr Josef MD, and understanding confirmed on 05/24/2023 12:19:04 (ET). Electronically Signed: Teo Garrido MD at 12:20 EDT , Chest X-Ray 05/24/23 12:32 IMPRESSION: Cardiomegaly. The lungs are clear. Electronically Signed: Teo Garrido MD at 13:27 EDT , I did receive a call from Dr. Myles regarding unenhanced scan. This revealed chronic small vessel ischemic changes. Management Discussion w/another healthcare provider: Hospitalist, Admissions Nurse (Will discuss with neurologist at [facility]. To Becky Mcrae. If CTA reveals stenotic tight lesion patient be transferred to [facility]. Otherwise TIA work-up) and Radiologist (Documented under the MDM/plan of the medical record) Treatment and Re-Evaluation Narrative: The was made aware that I am waiting for the interpretation of the CTA of the head and neck to determine if patient is appropriate for admission to [facility] versus transfer to a tertiary center. Since the CTA reveals no significant abnormality per discussion with Dr. Castro stroke neurologist had [facility] patient to be admitted for TIA work-up. Stroke Documentation Questions Stroke Team Activated: Yes Reviewed Inclusion/Exclusion criteria: Yes IV Thrombolytic Administered: No No contraindications from thrombolytic administration: No (Stuttering symptoms and only complaint is numbness left upper extremity.) Risks, Benefits, Alternatives Discussed: No Discharge Plan Dx/Rx/DC Orders Clinical Impression: Paresthesia of left upper extremity, Polyclonal gammopathy, Hyperlipidemia, History of CVA (cerebrovascular accident), CKD (chronic kidney disease) stage 3, GFR 30-59 ml/min Disposition Disposition: Acute Care Hospital [facility]
[2023-05-24 11:23] LABS: Absolute Lymphocyte Count 1.28 X10^3/uL (0.83-4.51); Absolute Neutrophil Count 3.7 X10^3/uL (2.0-7.7); Basophil# 0.04 X10^3/uL; Basophil% 0.7 % (0-1); Eosinophils% 3.6 % (0-5); Hematocrit 33.2 % (37-47); Hemoglobin 10.5 g/dL (12.0-15.0); Lymphocyte # 1.28 X10^3/ul (0.83-4.51); Lymphocyte % 22.9 % (19-41); Mean Corp Hgb Conc 31.6 g/dL (32-36); Mean Corpuscular Hgb 27.3 pg (27.0-32.0); Mean Corpuscular Volume 86.5 fL (81-99); Monocyte# 0.31 X10^3/uL; Monocyte% 5.6 % (0-10); NRBC Flagged by Analyzer 0 % (0-5); Neutrophil # 3.73 X10^3/uL (2.7-7.7); Neutrophil % 66.8 % (47-70); Platelet Count 203 K/mm3 (150-450); RBC Distribution Width CV 13.5 % (11.6-14.6); RBC Distribution Width SD 41.8 fl (35.1-43.9); Red Blood Count 3.84 M/mm3 (4.2-5.4); White Blood Count 5.6 K/mm3 (4.4-11.0)
[2023-05-24 11:33] LABS: International Normalized Ratio 0.9; Partial Thromboplast Time 27.4 Seconds (24.1-36.2); Prothrombin Time (Protime)PT. 12.3 SECONDS (11.7-14.9)
[2023-05-24 11:42] LABS: Bedside Glucose 199 mg/dL (74-106)
[2023-05-24 12:03] LABS: Anion Gap 6 (5-15); BUN 16 mg/dL (7-18); BUN/Creat Ratio 12.2 RATIO (10-20); Calcium,Total 8.1 mg/dL (8.5-10.1); Chloride 104 mmol/L (98-107); Creatinine, Serum 1.31 mg/dL (0.55-1.02); EST Glomerular Filtration Rate 41 mL/min (>60); Est Glom Filt Rate - Afr Amer 50 mL/min (>60); Estimated Creatinine Clearance 29.79 ml/min; Glucose 215 mg/dL (74-106); Potassium 3.9 mmol/L (3.5-5.1); Sodium Level 137 mmol/L (136-145); Troponin-I HS 18 pg/mL (3.0-54.0)
--- NOTE | 2023-05-24 12:32 | RAD_ITS ---
STUDY: X-RAY CHEST REASON FOR EXAM: Female, 83 years old. Neuro deficit, acute, stroke suspected TECHNIQUE: Single AP portable view of the chest. COMPARISON: Comparison is made with prior study dated April 29, 2023. FINDINGS: EKG electrodes are seen. Stable elevation of the right hemidiaphragm. There is no demonstrated pleural abnormality. There is moderate cardiac enlargement. Normal mediastinum and pete. Normal visualized pulmonary arteries. There is atherosclerotic calcification of the aortic arch with tortuosity. There are diffuse degenerative changes of the visualized thoracic spine. Multiple healed right-sided rib fractures. There is no demonstrated abnormality of the visualized soft tissue structures of the upper abdomen. RAD/Chest 1 View IMPRESSION: Cardiomegaly. The lungs are clear. Electronically Signed: Teo Garrido MD at 13:27 EDT ,
--- NOTE | 2023-05-24 13:42 | MRI_ITS ---
STUDY: MRI BRAIN WITHOUT CONTRAST REASON FOR EXAM: Female, 83 years old. Stuart Hsu TECHNIQUE: Standardized multiplanar fat and water weighted pulse sequences were obtained. COMPARISON: CT earlier today FINDINGS: There is moderate cerebral atrophy with widening of the extra-axial spaces and ventricular dilatation. There are multiple white matter hyperintensities, distributed throughout the deep white matter tracts of the cerebral hemispheres, consistent with moderate chronic white matter ischemic changes. There is no evidence for recent intracranial ischemia or other cause of cytotoxic edema on diffusion weighted imaging (DWI). Normal T2* images of the brain without demonstrated susceptibility artifact. There is no demonstrated hemosiderin stain. Normal bilateral basal ganglia. Normal thalami. There is no extra-axial fluid accumulation. Normal flow voids within the major intracranial circulation suggesting patency by spin echo criteria. Normal sella turcica, pituitary gland, infundibular stalk, optic chiasm and hypothalamus. Normal tectal plate and pineal gland. Normal midbrain, karlene and medulla. Normal cerebellum. Normal basal cisterns. Normal bilateral temporal bones. Normal bilateral internal auditory canals. There are bilateral ocular lens implants with otherwise normal intraorbital contents. Normal visualized paranasal sinuses. Normal calvarium and skull base. Normal visualized soft tissue structures. Normal visualized upper cervical spine. MRI/Brain without Contrast IMPRESSION: Involutional changes of the brain, as described above. No acute infarct. Electronically Signed: Jamie Hood MD at 20:27 EDT ,
--- NOTE | 2023-05-24 13:42 | ECHOD_ITS ---
Reason For Study: TIA/Stroke Procedure This was a 2D Doppler, Color Flow transthoracic echocardiogram. Exam performed portable in ED. Left Ventricle Normal LV size. Mild concentric left ventricular hypertrophy. The left ventricular ejection fraction is 65 %. Stage 1 diastolic dysfunction. Right Ventricle Normal right ventricle. Atria The left and right atria are normal. Bubble contrast study is negative for PFO/ASD. Mitral Valve Mild mitral annular calcification. Mild (1+) mitral valve insufficiency. Tricuspid Valve Trivial tricuspid valve insufficiency. Unable to estimate RV systolic pressure due to insufficient tricuspid regurgitant envelope. Aortic Valve Mild diffuse aortic valve calcification. Moderate aortic stenosis. Pulmonic Valve The pulmonic valve is not well visualized. Great Vessels Mildly dilated aortic root. Pericardium/Pleural Trivial pericardial effusion. Medication Performed a rapid injection of agitated mix of 9 cc saline and 1cc air to assess for atrial septal defect. MMode/2D Measurements & Calculations LVIDd: 3.7 cm IVSd: 1.4 cm LVOT diam: 2.0 cm LVIDs: 2.5 cm LVPWd: 1.3 cm RVDd: 3.7 cm FS: 33.7 % LVOT area: 3.2 cm2 Ao root diam: 3.8 cm LAV(MOD-sp2): 25.8 ml LVAd ap4: 23.7 cm2 LVLd ap4: 8.0 cm EDV(MOD-sp4): 57.0 ml EDV(sp4-el): 59.6 ml LVAs ap4: 12.2 cm2 LVLs ap4: 6.6 cm ESV(MOD-sp4): 19.6 ml ESV(sp4-el): 19.2 ml EF(MOD-sp4): 65.6 % EF(sp4-el): 67.9 % SV(MOD-sp4): 37.4 ml SV(sp4-el): 40.5 ml LA dimension(2D): 4.1 cm TAPSE: 2.0 cm Time Measurements MV dec time: 0.16 sec Doppler Measurements & Calculations MV E max vamsi: 90.8 cm/sec Lat Peak E' Vamsi: 5.3 cm/sec Med Peak E' Vamsi: 6.7 cm/sec MV A max vamsi: 167.2 cm/sec E/E' lat: 17.1 E/E' med: 13.6 MV E/A: 0.54 MV V2 max: 179.1 cm/sec MV dec slope: 584.4 cm/sec2 Ao V2 max: 354.1 cm/sec MV max P.8 mmHg Ao max P.3 mmHg MV V2 mean: 111.2 cm/sec Ao V2 mean: 286.1 cm/sec MV mean P.7 mmHg Ao mean P.5 mmHg MV V2 VTI: 31.0 cm Ao V2 VTI: 64.2 cm MVA(VTI): 2.3 cm2 AV (velocity ratio): 0.34 OCTAVIO(I,D): 1.1 cm2 OCTAVIO(V,D): 1.1 cm2 LV V1 max: 119.0 cm/sec SV(LVOT): 71.1 ml PA V2 max: 111.2 cm/sec LV V1 max P.7 mmHg LV V1 mean P.3 mmHg LV V1 mean: 86.6 cm/sec LV V1 VTI: 22.1 cm ECHO/Echo Complete Interpretation Summary Mild concentric left ventricular hypertrophy. The left ventricular ejection fraction is 65 %. Stage 1 diastolic dysfunction. Moderate aortic stenosis. Mildly dilated aortic root. Mild (1+) mitral valve insufficiency. Bubble contrast study is negative for PFO/ASD. Ordering Physician: Koki Mcrae Referring Physician: Doris Navarro Performed By: Madina Cullen, [place], RVT
--- NOTE | 2023-05-24 13:42 | MRI_ITS ---
STUDY: MRI CERVICAL SPINE WITHOUT CONTRAST REASON FOR EXAM: Female, 83 years old. R radicular numbness TECHNIQUE: Standardized fat and water weighted pulse sequences were obtained in the sagittal and axial planes. COMPARISON: None FINDINGS: Normal foramen magnum and brainstem-cervical cord junction. Normal craniovertebral junction. There is hypertrophy of the transverse ligament of the atlas with mild posterior displacement of the superior and inferior longitudinal fibers of the cruciform ligament, producing minimal ventral thecal sac flattening, but without cervical cord impingement. There are mild degenerative changes in the anterior atlantoaxial articulation. Normal odontoid process. Normal cervical lordosis. Normal vertebral bodies and posterior osseous elements. C2-3: Normal endplates. Normal disc height, signal and morphology. Normal central canal and intervertebral neural foramina. C3-4: Normal endplates. Normal disc height, signal and morphology. Normal central canal and intervertebral neural foramina. C4-5: Moderate broad disc osteophyte complex produces moderate spinal stenosis with abutment of the central spinal cord and mild bilateral neural foraminal stenosis. C5-6: Moderate broad disc osteophyte complex produces moderate spinal stenosis with abutment of the central spinal cord and mild bilateral neural foraminal stenosis. C6-7: Mild broad disc osteophyte complex produces mild spinal stenosis and mild bilateral neural foraminal stenosis. C7-T1: Moderate sized central disc extrusion produces moderate spinal stenosis with near abutment of the central spinal cord and no neural foraminal stenosis. Normal cervical cord. Normal visualized soft tissue structures. MRI/Spine Cervical (Routine) IMPRESSION: Multilevel degenerative changes, as described above. Electronically Signed: Jamie Hood MD at 21:02 EDT ,
--- NOTE | 2023-05-24 13:47 | HP.PCM.HOS_ITS ---
HPI - General General Date of Admission: 05/24/23 Date of Service: 05/24/23 Chief Complaint: L UE Numbness HPI Narrative NITZA CRUZ, is a 83 F who presented to the [facility] department at [facility] on 05/24/2023 complaining of intermittent numbness of the entire left upper extremity. Patient reports she has had intermittent numbness of the left upper extremity on and off over the last few weeks to months. She cannot pinpoint a specific time it which it started. She did have a fall which she hit her head but believes that she was having pain before that point in time. She has no associated weakness. She reports that the entire extremity goes numb with no sparing. She states that happens and tends to be more consistent but fluctuating throughout the day and intensity and then will resolve and be completely resolved for some time before returning. She has no other associated complaints. She denies any neck pain or headaches. Her states that she has had some falls at home but this has been an ongoing problem with her on and off. She is to use a cane at home and a walker but is noncompliant with both of these. She also reports she has sleep apnea but is not wearing a CPAP at night as she does not tolerate it. Vital signs on presentation showed temperature of 98, heart rate 98, blood p ressure 150/84 (patient has not taken her antihypertensives today) respiratory rate is unremarkable and oxygen saturations are 95% on room air. Her CBC shows a normal white count and platelet count with anemia showing a hemoglobin of 10.5 however we do not have any recent laboratory data to compare. Coags are normal. Her chemistry panel is unremarkable other than elevated serum creatinine 1.31 which is her baseline due to her chronic renal disease. Blood glucose is 215. Troponin was 18. CT of the brain shows chronic involutional changes without any acute findings. CTA of the head and neck was unremarkable for any significant plaque formation or stenosis and only reported minimal plaque formation at the origin of the left internal carotid artery. Chest x-ray showed cardiomegaly with no lung abnormalities. EKG was normal sinus rhythm with normal intervals and no ST-T wave changes concerning for acute ischemia. Case was discussed with the stroke neurologist at [facility] and they recommended admission for stroke rule out. [facility] Medical History Acquired hypothyroidism Acute gastroenteritis Arteriosclerosis of both carotid arteries Asthma Bilateral sciatica Chronic fatigue CKD (chronic kidney disease) stage 3, GFR 30-59 ml/min Dementia Depressed mood Esophageal reflux Essential hypertension Fatty liver Heart disease Herpes zoster History of abdominal pain History of CVA (cerebrovascular accident) (01/2018) History of pancreatitis Hyperglycemia Hyperlipidemia Lumbar compression fracture Memory impairment MGUS (monoclonal gammopathy of unknown significance) Nonrheumatic aortic (valve) stenosis Obesity Opioid use, unspecified, uncomplicated Osteoarthritis Osteopenia Polyclonal gammopathy Post-polio syndrome Stress incontinence Thyromegaly Type 2 diabetes mellitus Vitamin B12 deficiency Vitamin D deficiency Weakness Home Medications amlodipine 5 mg tablet 5 mg PO DAILY Blood Pressure 08/09/13 [History Last Taken 05/23/23] hydrochlorothiazide 25 mg tablet 25 mg PO DAILY Diuretic 08/09/13 [History Last Taken 05/23/23] omeprazole 20 mg capsule,delayed release 20 mg PO DAILY Heart Burn 08/09/13 [History Last Taken 05/23/23] albuterol sulfate 2.5 mg/3 mL (0.083 %) solution for nebulization 2.5 mg inhalation Q6H PRN shortness of breath or wheezing 07/08/20 [History Last Taken Unknown] clopidogrel 75 mg tablet (Plavix) 75 mg PO DAILY 07/08/20 [History Last Taken 05/23/23] gabapentin 300 mg capsule 300 mg PO TID 07/08/20 [History Last Taken 05/23/23] levothyroxine 200 mcg tablet 200 mcg PO DAILY 07/08/20 [History Last Taken 05/23/23] liothyronine 5 mcg tablet (Cytomel) 5 mcg PO DAILY 07/08/20 [History Last Taken 05/23/23] rosuvastatin 5 mg tablet 10 mg PO DAILY cholestrol 07/08/20 [History Last Taken 05/23/23] tizanidine 2 mg capsule 2 mg PO BID PRN muscle spasticity 07/08/20 [History Last Taken Unknown] amitriptyline 25 mg tablet 75 mg PO QHS 08/19/20 [History Last Taken 05/23/23] buspirone 10 mg tablet 20 mg PO BID 08/19/20 [History Last Taken 05/23/23] losartan 100 mg tablet 100 mg PO DAILY 08/19/20 [History Last Taken 05/23/23] metformin 500 mg tablet,extended release 24 hr 1,000 mg PO BID 08/19/20 [History Last Taken 05/23/23] metoprolol succinate 100 mg tablet,extended release 24 hr 100 mg PO DAILY 08/19/20 [History Last Taken 05/23/23] cetirizine 10 mg capsule 10 mg PO HS #30 caps 08/31/20 [Rx Last Taken 05/23/23] budesonide 1 mg/2 mL suspension for nebulization 0.5 mg inhalation BID #60 mL 09/02/20 [Rx Last Taken Unknown] montelukast 10 mg tablet 10 mg PO QPM #90 tabs 01/26/21 [Rx Last Taken 05/23/23] Allergy/AdvReac Type Severity Reaction Status Date / Time naproxen [From Naprosyn] Allergy Hives Verified 05/24/23 10:48 Penicillins [PCN] Allergy Hives Verified 05/24/23 10:48 guaifenesin [From Mucinex] AdvReac Unknown Verified 05/24/23 10:48 ketoprofen AdvReac Unknown Verified 05/24/23 10:48 loracarbef [From Lorabid] AdvReac Unknown Verified 05/24/23 10:48 venom-honey bee AdvReac NEEDS Verified 05/24/23 10:48 FOLLOW-UP Family History Aunt Cancer Sister Diabetes Father Hypercholesteremia Myocardial infarction Mother Hypertension Diabetes CAD (coronary artery disease) Other Heart disease Surgical History H/O cataract removal with insertion of prosthetic lens History of cholecystectomy Social History household members: spouse Smoking Status: Never smoker Electronic Cigarette Use: not used alcohol intake: never substance use type: does not use ROS Constitutional Constitutional: Reports other Details: Frequent falls at home ; Denies anorexia, change in weight, chills, fatigue, fever(s), malaise, night sweats or weakness Eyes Eyes: Denies blurry vision, change in eye color, change in vision, discharge from eye(s), double vision, erythema, eye pain, loss of vision or other ENT HEENT: Denies abnormal hearing, dysphagia, ear pain, epistaxis, headache(s), hearing loss, nasal congestion, nasal discharge, post nasal drip, sinus pressure, sore throat or other Cardiovascular Cardiovascular: Denies chest pain, claudication, dyspnea on exertion, edema, lightheadedness, orthopnea, palpitations, paroxysmal nocturnal dyspnea, rapid heart rate, syncope or other Respiratory/Chest Respiratory/Chest: Denies cough, dyspnea, excessive phlegm production, hemoptysis, productive cough, shortness of breath at rest, shortness of breath with exertion, wheezing or other Gastrointestinal Gastrointestinal: Denies abdominal pain, coffee ground emesis, constipation, diarrhea, dyspepsia, hematemesis, hematochezia, loose stools, melena, nausea, vomiting or other Genitourinary Genitourinary: Denies burning urination, difficulty urinating, dysuria, hematuria, nocturia, urinary frequency, urinary hesitancy, urinary incontinence, urinary urgency or other Musculoskeletal Musculoskeletal: Reports back pain, joint pain and joint stiffness; Denies arthralgias, joint swelling, myalgias, neck pain or other Neurologic Neurologic: Reports abnormal gait, numbness and paresthesias; Denies abnormal speech, confusion, disequilibrium, dizziness, focal weakness, headache(s), seizure-like activity, seizures, syncope, tingling, tremor(s) or other Psychiatric Psychiatric: Denies anxiety, depression, homicidal ideation, suicidal ideation or other Endocrine Endocrinology: Denies change in body appearance, cold intolerance, excessive sweating, heat intolerance, polydipsia, polyuria or other Hematologic/Lymphatic Hematologic/Lymphatic: Denies anemia, easy bleeding, easy bruising, lymphadenopathy or other Allergic/Immunologic Allergic/Immunologic: Reports asthma; Denies hives, eczemia or other Vital Signs Vital Signs Vital Signs: 05/24/23 10:45 05/24/23 11:09 05/24/23 11:02 Temperature 98 F 98 F Temperature Source Temporal Temporal Pulse Rate 98 98 Respiratory Rate 18 18 Blood Pressure 158/84 H 158/84 H Blood Pressure Mean 108 108 Pulse Ox 97 95 95 Oxygen Delivery Method Room Air Room Air Room Air 05/24/23 11:22 05/24/23 11:25 05/24/23 11:30 Temperature Temperature Source Pulse Rate 96 96 95 Respiratory Rate 22 H 20 H 19 H Blood Pressure 159/77 H 159/77 H 151/64 H Blood Pressure Mean 104 104 93 Pulse Ox 96 92 92 Oxygen Delivery Method Room Air Room Air Room Air 05/24/23 11:40 05/24/23 12:13 05/24/23 12:38 Temperature Temperature Source Pulse Rate 93 98 94 Respiratory Rate 18 19 H 20 H Blood Pressure 144/64 H 173/131 H 166/96 H Blood Pressure Mean 90 145 119 Pulse Ox 93 99 98 Oxygen Delivery Method Room Air Room Air Room Air 05/24/23 13:00 05/24/23 13:00 05/24/23 13:30 Temperature Temperature Source Pulse Rate 89 89 93 Respiratory Rate 16 16 23 H Blood Pressure 139/70 H 139/70 H 153/117 H Blood Pressure Mean 93 93 129 Pulse Ox 98 98 98 Oxygen Delivery Method Room Air Room Air Room Air Weight Weight: 92.7 kg Body Mass Index (BMI) 34.0 Physical Exam Const alert, oriented x3, no apparent distress, healthy appearing and well nourished; Negative for average body habitus Constitutional Narrative: Obese, elderly, white female, sitting up in bed, at bedside, patient appears comfortable and nontoxic General Appearance: cooperative HEENT normocephalic, head/scalp atraumatic, hearing grossly normal bilaterally and moist oral mucous membranes HEENT Narrative: Dentures in place, Mallampati 3, no thrush Eyes PERRL, EOMs intact bilaterally and conjunctivae normal Eyes Narrative: No scleral icterus Neck no lymphadenopathy, supple and no carotid bruits Neck Narrative: Neck is short and thick, trachea midline, no thyroid enlargement--incision noted from previous thyroid surgery Resp normal respiratory effort, no retractions, no use of accessory muscles and clear to auscultation bilaterally Auscultation: Negative for rales, rhonchi or wheezes Cardio regular rate, regular rhythm, S1 normal heart sound, S2 normal heart sound, no rub, no gallops and no clicks; Negative for no murmurs Cardio Narrative: 2 out of 6 systolic murmur GI normal to inspection, nondistended, normoactive bowel sounds, soft to palpation and non-tender Extremity no clubbing, cyanosis or edema Extremity Narrative: Pedal pulses left, radial pulses 2+ Skin no rashes or lesions noted, no wounds, skin turgor normal, no jaundice, no petechiae and no mottling Skin Narrative: Skin changes consistent with previous sun exposure Neuro oriented x3, CN's II-XII intact bilaterally, moves all extremities and no focal motor deficits Neuro Narrative: Patient with paresthesias and some numbness in left upper extremity from shoulder to hand including all fingers, generalized weakness noted elsewhere but no focal deficits Sensorium / Orientation: awake, alert, oriented to person, oriented to place and oriented to time Speech: speech normal Psych affect normal Psych Narrative: Eye contact is good, patient is very pleasant and interacts appropriately Results Lab / Micro Data Attestation: I reviewed the patient's lab results. 05/24/23 11:15 05/24/23 11:15 Labs: Laboratory Results - last 24 hr 05/24/23 11:15: WBC 5.6, RBC 3.84 L, Hgb 10.5 L, Hct 33.2 L, MCV 86.5, MCH 27.3, MCHC 31.6 L, RDW Std Deviation 41.8, RDW Coeff of Juanito 13.5, Plt Count 203, MPV 10.0, Immature Gran % (Auto) 0.400, Neut % (Auto) 66.8, Lymph % (Auto) 22.9, M clemencia % (Auto) 5.6, Eos % (Auto) 3.6, Baso % (Auto) 0.7, Absolute Neuts (auto) 3.7, Absolute Lymphs (auto) 1.28, Nucleated RBC % 0, PT 12.3, INR 0.9, APTT 27.4, Sodium 137, Potassium 3.9, Chloride 104, Carbon Dioxide 27.0, Anion Gap 6, BUN 16, Creatinine 1.31 H, Estim Creat Clear Calc 29.79, Est GFR (MDRD) Af Amer 50 L, Est GFR (MDRD) Non-Af 41 L, BUN/Creatinine Ratio 12.2, Glucose 215 H, Calcium 8.1 L, Troponin I High Sens 18 05/24/23 11:23: POC Glucose 199 H Radiology Impression Brain CT 05/24/23 11:02 IMPRESSION: Chronic involutional changes of the brain. Stable examination. N.B. : The above Results were Read Back by Teo Garrido MD to Maximus Bahena MD, and understanding confirmed on 05/24/2023 11:24:57 (ET). Electronically Signed: Teo Garrido MD at 11:26 EDT , ADDENDUM: 05/24/23 1132 IMPRESSION: Chronic involutional changes of the brain. Stable examination. N.B. : The above Results were Read Back by Teo Garrido MD to Maximus Bahena MD, and understanding confirmed on 05/24/2023 11:24:57 (ET). Electronically Signed: Teo Garrdio MD at 11:26 EDT , Head/Neck CTA 05/24/23 11:02 IMPRESSION: Minimal plaque formation at the origin of the left internal carotid artery without significant luminal stenosis. N.B. : The above Results were Read Back by Teo Garrido MD to Dr Josef MD, and understanding confirmed on 05/24/2023 12:19:04 (ET). Electronically Signed: Teo Garrido MD at 12:20 EDT , ADDENDUM: 05/24/23 1227 IMPRESSION: Minimal plaque formation at the origin of the left internal carotid artery without significant luminal stenosis. N.B. : The above Results were Read Back by Teo Garrido MD to Dr Josef MD, and understanding confirmed on 05/24/2023 12:19:04 (ET). Electronically Signed: Teo Garrido MD at 12:20 EDT , Chest X-Ray 05/24/23 12:32 IMPRESSION: Cardiomegaly. The lungs are clear. Electronically Signed: Teo Garrido MD at 13:27 EDT , Assessment & Plan Assessment/Plan (1) Paresthesia of left upper extremity: PLAN: Plan Upper extremity paresthesias -Has been ongoing on and off for the last couple months -We will check MRI of brain as well as cervical spine -Does not seem to have any motor deficits -Continue home Plavix 75 mg daily -Start aspirin 81 mg daily -Check echocardiogram -Check hemoglobin A1c -Check lipids -Continue home rosuvastatin -We will continue home metoprolol -Hold amlodipine/HCTZ/losartan to allow for permissive hypertension with concerns of stroke and restart as appropriate -NIH as per protocol -NIH on admission was 1 for left upper extremity sensory deficits -PT/OT consultation History of stroke -Continue home Plavix -Add aspirin 81 mg daily History of asthma/allergies -Continue home budesonide and as needed albuterol -Continue Singulair -Continue home cetirizine Hypertension -Hold HCTZ/losartan/amlodipine -Continue home metoprolol -Allowing for permissive hypertension with stroke work-up -As needed blood pressure medication available -Restart home medications once stroke is ruled out CKD stage IIIb -Serum creatinine is stable on admission -Monitor -Avoid nephrotoxins Hyperlipidemia -Check lipids -Continue home rosuvastatin DM-2 -Hold home metformin -Check hemoglobin A1c -SSI -Accu-Cheks as ordered Hypothyroidism -Continue home levothyroxine -Continue home liothyronine Neuropathy -Continue home gabapentin -Continue home amitriptyline GERD -Continue home PPI Falls/debility -Patient with history of postpolio syndrome which likely increases her risk for falls -PT/OT consultation -I do suspect patient would at the very least benefit from outpatient physical therapy as she reports she had significant falls at home previously CORRINA -Patient is noncompliant with home CPAP as she does not tolerate it -May need nocturnal oxygen Obesity -BMI is 34.0 -Recommend weight loss -Complicates treatment, prognosis, outcomes DVT prophylaxis -Subcu Lovenox 40 daily CODE STATUS -DNR CCA okay for short-term intubation per discussion prior to admission Charges/Coding Visit Charges Inpatient E&M: 35556 Init Hosp L2
[2023-05-24 17:30] LABS: Bedside Glucose 100 mg/dL (74-106)
[2023-05-24 18:45] LABS: Hemoglobin A1c 7.8 % (3.8-5.6)
[2023-05-24] MEDS: Budesonide Respules 0.5 MG/2 ML AMPUL.NEB. INHALATION (19:48)
[2023-05-24] MEDS: Montelukast 10 MG Tablet PO (20:29)
[2023-05-24] MEDS: Loratadine 10 MG Tablet PO (20:29)
[2023-05-24] MEDS: Atorvastatin Calcium 20 MG Tablet PO (20:29)
[2023-05-24] MEDS: Gabapentin 300 MG Capsule PO (20:29)
[2023-05-24] MEDS: busPIRone 5 MG Tablet 20 MG PO (20:29)
[2023-05-24] MEDS: Amitriptyline 25 MG Tablet 75 MG PO (20:29)
[2023-05-25 02:00] VITALS: BP 127/71; PULSE 99; RESP 16; TEMP 36.6; O2SAT 96
[2023-05-25 04:58] VITALS: BMI 30.1
[2023-05-25] MEDS: Liothyronine 5 MCG Tablet PO (05:53)
[2023-05-25] MEDS: Levothyroxine 100 MCG Tablet 200 MCG PO (05:54)
[2023-05-25] MEDS: Gabapentin 300 MG Capsule PO (05:58)
[2023-05-25 06:00] VITALS: BP 125/75; PULSE 109; RESP 20; TEMP 36.6; O2SAT 96
[2023-05-25 06:21] LABS: Bedside Glucose 209 mg/dL (74-106)
[2023-05-25] MEDS: Budesonide Respules 0.5 MG/2 ML AMPUL.NEB. INHALATION (07:10)
[2023-05-25 07:12] VITALS: PULSE 109; RESP 18; O2SAT 91
[2023-05-25 07:45] LABS: Cholesterol 130 mg/dL (200); High Density Lipoprotein 44 mg/dL; Triglycerides 251 mg/dL; Very Low Density Lipoprotein 50 mg/dL (5-40)
[2023-05-25 09:22] LABS: Thyroid Stim Hormone (TSH) 0.09 uIU/mL (0.358-3.74)
[2023-05-25 09:30] VITALS: BP 128/76; PULSE 113; RESP 16; TEMP 36.6; O2SAT 95
[2023-05-25 09:36] VITALS: BP 128/76; PULSE 113
[2023-05-25] MEDS: Metoprolol(XL)Succ 100 MG Tablet PO (09:36)
[2023-05-25] MEDS: Pantoprazole Sodium 20 MG Tablet PO (09:36)
[2023-05-25] MEDS: 0.9% Saline Lock 10 ML Syringe IV (09:36)
[2023-05-25] MEDS: Aspirin 81 MG TAB.CHEW PO (09:36)
[2023-05-25] MEDS: busPIRone 5 MG Tablet 20 MG PO (09:37)
[2023-05-25] MEDS: Clopidogrel Bisulfate 75 MG Tablet PO (09:37)
[2023-05-25 11:02] VITALS: BMI 30.1
[2023-05-25] MEDS: Insulin Lispro 100 UNIT/ML INSULN.PEN SC (11:05)
[2023-05-25 11:15] LABS: Bedside Glucose 344 mg/dL (74-106)
--- NOTE | 2023-05-25 12:39 | DCINST_ITS ---
Discharge Instructions Diet Discharge Diet: - (DASH diet) Activity Discharge Activity: Return to Normal Activity Follow Up Care Test Results: Test results from this visit will be discussed in further detail at your follow- up appointment, if applicable. Discharge Plan Admission Admit Date/Time: 05/24/23 13:33 Primary Reason for Your Visit: Intermittent left arm numbness Attending Provider: Zonia Carmen Primary Care Provider: Doris Navarro Consulting Providers: Koki Mcrae Instructions Patient Instructions: ED Fall Prevention Additional Instructions / Restrictions: DISCHARGE INSTRUCTIONS PLEASE READ *Please take this with you to your next doctors appointment* -Your TSH is very low on presentation, you indicated you are taking 200 mg of levothyroxine daily but instructions say to take half a tab on Sundays, would recommend holding tomorrow's dose and subsequently recommend adhering to this and having your tests repeated on outpatient basis as this may need further adjustment -You are not found to have any stroke or cord impingement, please follow-up with your primary care physician upon discharge. You will also need further management and monitoring of your diabetes -Can consider referral for orthospine outpatient for evaluation if symptoms persist or recur with increasing frequency. -Please call your primary care provider's office upon discharge to schedule a hospital follow up within 1 week. -For any concerning signs or symptoms please call 911 or proceed to the nearest emergency department Discharge Orders/Prescriptions Prescriptions: Continued liothyronine [Cytomel] 5 mcg tablet 5 mcg PO DAILY levothyroxine 200 mcg tablet 200 mcg PO DAILY Patient Comments: patient states she does not take it differently on saturday, but maybe she is supposed to Rx Instructions: Daily 6 days a week and 1/2 tab on Sundays albuterol sulfate 2.5 mg /3 mL (0.083 %) solution for nebulization 2.5 mg INHALATION Q6H PRN (Reason: shortness of breath or wheezing) Patient Comments: uses an inhaler, but not sure of the medication gabapentin 300 mg capsule 300 mg PO TID clopidogrel [Plavix] 75 mg tablet 75 mg PO DAILY buspirone 10 mg tablet 20 mg PO BID amitriptyline 25 mg tablet 75 mg PO QHS cetirizine 10 mg capsule 10 mg PO HS Qty: 30 3RF budesonide 1 mg/2 mL suspension for nebulization 0.5 mg INHALATION BID Qty: 60 6RF Patient Comments: uses an inhaler, but not sure of the medication metoprolol succinate 100 mg tablet extended release 24 hr 100 mg PO DAILY losartan 100 mg tablet 100 mg PO DAILY amlodipine 5 MG tablet 5 mg PO DAILY Patient Comments: BLOOD PRESSURE omeprazole 20 MG capsule,delayed release(DR/EC) 20 mg PO DAILY Patient Comments: ACID REFLUX hydrochlorothiazide 25 MG tablet 25 mg PO DAILY Patient Comments: WATER PILL metformin 500 mg tablet extended release 24 hr 1,000 mg PO BID rosuvastatin 5 mg tablet 10 mg PO DAILY montelukast 10 mg tablet 10 mg PO QPM Qty: 90 3RF Discontinued tizanidine 2 mg capsule 2 mg PO BID PRN (Reason: muscle spasticity) Referrals / Follow Up: Doris Navarro DO [Primary Care Provider] - Within 1 Week Disposition Disposition (needs filled in before D/C Order can be placed): Home, Self Care
--- NOTE | 2023-05-25 12:43 | DS.PCM_ITS ---
Providers Date of Admission: 05/24/23 Date of Discharge: 05/25/23 Primary Care Physician: Dr. Doris Navarro DO Reason For Visit: L UE WEAKNESS Diagnosis Discharge Diagnosis (1) Paresthesia of left upper extremity: Status: Acute Code(s): R20.2 - Paresthesia of skin Plan #Intermittent parasthesias of left upper extremity #Hypothyroidism #CKD unclear subtype #CORRINA #HTN #hx cva #asthma Medications at Discharge Home Medications amlodipine 5 mg tablet 5 mg PO DAILY Blood Pressure 08/09/13 hydrochlorothiazide 25 mg tablet 25 mg PO DAILY Diuretic 08/09/13 omeprazole 20 mg capsule,delayed release 20 mg PO DAILY Heart Burn 08/09/13 albuterol sulfate 2.5 mg/3 mL (0.083 %) solution for nebulization 2.5 mg inhalation Q6H PRN shortness of breath or wheezing 07/08/20 clopidogrel 75 mg tablet (Plavix) 75 mg PO DAILY 07/08/20 gabapentin 300 mg capsule 300 mg PO TID 07/08/20 levothyroxine 200 mcg tablet 200 mcg PO DAILY 07/08/20 liothyronine 5 mcg tablet (Cytomel) 5 mcg PO DAILY 07/08/20 rosuvastatin 5 mg tablet 10 mg PO DAILY cholestrol 07/08/20 amitriptyline 25 mg tablet 75 mg PO QHS 08/19/20 buspirone 10 mg tablet 20 mg PO BID 08/19/20 losartan 100 mg tablet 100 mg PO DAILY 08/19/20 metformin 500 mg tablet,extended release 24 hr 1,000 mg PO BID 08/19/20 metoprolol succinate 100 mg tablet,extended release 24 hr 100 mg PO DAILY 08/19/20 cetirizine 10 mg capsule 10 mg PO HS #30 caps 08/31/20 budesonide 1 mg/2 mL suspension for nebulization 0.5 mg inhalation BID #60 mL 09/02/20 montelukast 10 mg tablet 10 mg PO QPM #90 tabs 01/26/21 Hospital Course Summary of Care Provided Minutes Spent on Discharge: 32 Hospital Course: 83-year-old female history of hypothyroidism, sciatica, CKD, CVA, hypertension, MGUS presented to [facility] 05/24/2023 for intermittent left arm tingling. She reports that for months she has intermittent numbness and tingling of her entire left upper extremity with no exacerbating or relieving factors aside from time. She reports she only came in because she realized with her age she could have a problem with her heart or with a stroke prompting ED. In the ED [facility] neurology recommended admission and stroke rule out. Bubble study negative for PFO, MRI brain with involutional changes but no acute infarct, given complaints of just the arm cervical MRI also obtained which demonstrated multilevel degenerative changes with some moderate spinal stenosis with no spinal cord impingement. Unrevealing for cause of her symptoms. Upon evaluation in the morning patient reported feeling very well and had no further complaints, denied ever having weakness associated with the symptoms and with stroke and cardiac etiology was ruled out patient anxious to go home and agreeable to outpatient follow-up. Due to high TSH previously TSH was rechecked especially given her and low-grade tachycardia and her TSH was very low, gave instructions to hold dose and then it appears she is supposed to only take half a dose on Sundays and advised that she adhere to this and follow closely with her physician as she would likely need more monitoring and adjustments. Patient had no further complaints, discharge instructions as followed: -Your TSH is very low on presentation, you indicated you are taking 200 mg of levothyroxine daily but instructions say to take half a tab on Sundays, would recommend holding tomorrow's dose and subsequently recommend adhering to this and having your tests repeated on outpatient basis as this may need further adjustment -You are not found to have any stroke or cord impingement, please follow-up with your primary care physician upon discharge. You will also need further management and monitoring of your diabetes -Can consider referral for orthospine outpatient for evaluation if symptoms persist or recur with increasing frequency. -Please call your primary care provider's office upon discharge to schedule a hospital follow up within 1 week. -For any concerning signs or symptoms please call 911 or proceed to the nearest emergency department Physical Exam Narrative General: Alert, oriented, no apparent distress HEENT: Atraumatic, normocephalic Eyes: Anicteric, normal conjunctiva, extraocular movements grossly intact Neck: Supple Respiratory: Clear to auscultation bilaterally, normal respiratory effort Cardiovascular: Regular rate and rhythm GI: Soft, nontender, nondistended Extremities: No edema Musculoskeletal: Moving all extremities, upper extremities 5 out of 5 in strength and symmetric Neuro: No overt focal neurological deficits, no present complaints of paresthesias Skin: No rashes appreciated Psych: Cooperative Weight / BMI Weight Weight: 84.6 kg Body Mass Index (BMI) 30.1 ABG / Lab / Microbiology Data 05/24/23 11:15 05/24/23 11:15 Laboratory: Laboratory Results - last 24 hr 05/24/23 11:15: Hemoglobin A1c 7.8 H 05/24/23 17:12: POC Glucose 100 05/25/23 06:03: POC Glucose 209 H 05/25/23 06:41: Triglycerides 251 H, Cholesterol 130, LDL Cholesterol 36, VLDL Cholesterol 50 H, HDL Cholesterol 44, TSH 0.09 L 05/25/23 10:57: POC Glucose 344 H Radiography Diagnostic Testing: Radiology Impression Chest X-Ray 05/24/23 12:32 IMPRESSION: Cardiomegaly. The lungs are clear. Electronically Signed: Teo Garrido MD at 13:27 EDT , Brain MRI 05/24/23 13:42 IMPRESSION: Involutional changes of the brain, as described above. No acute infarct. Electronically Signed: Jamie Hood MD at 20:27 EDT , Cervical Spine MRI 05/24/23 13:42 IMPRESSION: Multilevel degenerative changes, as described above. Electronically Signed: Jamie Hood MD at 21:02 EDT , Echocardiogram 05/24/23 13:42 Interpretation Summary Mild concentric left ventricular hypertrophy. The left ventricular ejection fraction is 65 %. Stage 1 diastolic dysfunction. Moderate aortic stenosis. Mildly dilated aortic root. Mild (1+) mitral valve insufficiency. Bubble contrast study is negative for PFO/ASD. Ordering Physician: Koki Mcrae Referring Physician: Doris Navarro Performed By: Madina Cullen RDCS, RVT D/C Instructions Discharge Diet: - (DASH diet) Meaningful Use Info Meaningful Use Diagnoses (Choose all that apply): None applicable Discharge Plan Admission Admit Date/Time: 05/24/23 13:33 Primary Reason for Your Visit: Intermittent left arm numbness Attending Provider: Zonia Carmen Primary Care Provider: Doris Navarro Consulting Providers: Koki Mcrae Instructions Patient Instructions: ED Fall Prevention Additional Instructions / Restrictions: DISCHARGE INSTRUCTIONS PLEASE READ *Please take this with you to your next doctors appointment* -Your TSH is very low on presentation, you indicated you are taking 200 mg of levothyroxine daily but instructions say to take half a tab on Sundays, would recommend holding tomorrow's dose and subsequently recommend adhering to this and having your tests repeated on outpatient basis as this may need further adjustment -You are not found to have any stroke or cord impingement, please follow-up with your primary care physician upon discharge. You will also need further management and monitoring of your diabetes -Can consider referral for orthospine outpatient for evaluation if symptoms persist or recur with increasing frequency. -Please call your primary care provider's office upon discharge to schedule a hospital follow up within 1 week. -For any concerning signs or symptoms please call 911 or proceed to the nearest emergency department Discharge Orders/Prescriptions Prescriptions: Continued liothyronine [Cytomel] 5 mcg tablet 5 mcg PO DAILY levothyroxine 200 mcg tablet 200 mcg PO DAILY Patient Comments: patient states she does not take it differently on saturday, but maybe she is supposed to Rx Instructions: Daily 6 days a week and 1/2 tab on Sundays albuterol sulfate 2.5 mg /3 mL (0.083 %) solution for nebulization 2.5 mg INHALATION Q6H PRN (Reason: shortness of breath or wheezing) Patient Comments: uses an inhaler, but not sure of the medication gabapentin 300 mg capsule 300 mg PO TID clopidogrel [Plavix] 75 mg tablet 75 mg PO DAILY buspirone 10 mg tablet 20 mg PO BID amitriptyline 25 mg tablet 75 mg PO QHS cetirizine 10 mg capsule 10 mg PO HS Qty: 30 3RF budesonide 1 mg/2 mL suspension for nebulization 0.5 mg INHALATION BID Qty: 60 6RF Patient Comments: uses an inhaler, but not sure of the medication metoprolol succinate 100 mg tablet extended release 24 hr 100 mg PO DAILY losartan 100 mg tablet 100 mg PO DAILY amlodipine 5 MG tablet 5 mg PO DAILY Patient Comments: BLOOD PRESSURE omeprazole 20 MG capsule,delayed release(DR/EC) 20 mg PO DAILY Patient Comments: ACID REFLUX hydrochlorothiazide 25 MG tablet 25 mg PO DAILY Patient Comments: WATER PILL metformin 500 mg tablet extended release 24 hr 1,000 mg PO BID rosuvastatin 5 mg tablet 10 mg PO DAILY montelukast 10 mg tablet 10 mg PO QPM Qty: 90 3RF Discontinued tizanidine 2 mg capsule 2 mg PO BID PRN (Reason: muscle spasticity) Referrals / Follow Up: Doris Navarro DO [Primary Care Provider] - Within 1 Week Disposition Disposition (needs filled in before D/C Order can be placed): Home, Self Care Charges/Coding Visit Charges Inpatient E&M: 13968 Disch Hosp >30min
[2023-05-25 13:05] VITALS: BMI 30.1
[2023-05-25 13:14] VITALS: BP 129/77; PULSE 101; RESP 16; TEMP 36.2; O2SAT 96
== END 2023-05-25 12:42 | disposition home or self-care (01) ==
LOC: ED 13:53 → PCU 14:00
PROVIDERS: Admitting Provider Internal Medicine; Emergency Provider Emergency Medicine; PCP Internal Medicine; Visit Provider Internal Medicine
DX: R20.2 Paresthesia of skin (principal); E11.22 Type 2 diabetes mellitus with diabetic chronic kidney disease; E11.40 Type 2 diabetes mellitus with diabetic neuropathy, unspecified; N18.32 Chronic kidney disease, stage 3b; Z79.51 Long term (current) use of inhaled steroids; Z68.34 Body mass index [BMI] 34.0-34.9, adult; E78.5 Hyperlipidemia, unspecified; I12.9 Hypertensive chronic kidney disease with stage 1 through stage 4 chronic kidney disease, or unspecified chronic kidney disease; E66.9 Obesity, unspecified; R53.81 Other malaise; Z86.73 Personal history of transient ischemic attack (TIA), and cerebral infarction without residual deficits; D64.9 Anemia, unspecified; E03.9 Hypothyroidism, unspecified; G47.33 Obstructive sleep apnea (adult) (pediatric); R20.0 Anesthesia of skin; Z79.899 Other long term (current) drug therapy; Z79.890 Hormone replacement therapy; Z79.84 Long term (current) use of oral hypoglycemic drugs; K21.9 Gastro-esophageal reflux disease without esophagitis; D47.2 Monoclonal gammopathy; Z91.199 Patient's noncompliance with other medical treatment and regimen due to unspecified reason
CPT/HCPCS: 36415; 70450; 70496; 70498; 70551; 71045; 72141; 80048; 80061; 82962; 83036; 84443; 84484; 85025; 85610; 85730; 93005; 93306; 94640; 94762; 99221; 99285; Q9967; A4216; G0378

== ENCOUNTER → 2023-06-12 | Outpatient (CLI) | payer MEDICARE, SELFPAY ==
[2023-06-12 17:08] LABS: Absolute Lymphocyte Count 1.86 X10^3/uL (0.83-4.51); Absolute Neutrophil Count 5.5 X10^3/uL (2.0-7.7); Basophil# 0.08 X10^3/uL; Eosinophil# 0.36 X10^3/uL; Eosinophils% 4.3 % (0-5); Hematocrit 33.5 % (37-47); Hemoglobin 10.3 g/dL (12.0-15.0); Lymphocyte # 1.86 X10^3/ul (0.83-4.51); Lymphocyte % 22.2 % (19-41); Mean Corp Hgb Conc 30.7 g/dL (32-36); Mean Corpuscular Volume 87.7 fL (81-99); Mean Platelet Vol. 10.7 fl (6.2-12.0); Monocyte# 0.53 X10^3/uL; Monocyte% 6.3 % (0-10); NRBC Flagged by Analyzer 0 % (0-5); Neutrophil # 5.51 X10^3/uL (2.7-7.7); Neutrophil % 65.8 % (47-70); Platelet Count 286 K/mm3 (150-450); RBC Distribution Width CV 13.5 % (11.6-14.6); RBC Distribution Width SD 42.7 fl (35.1-43.9); Red Blood Count 3.82 M/mm3 (4.2-5.4); White Blood Count 8.4 K/mm3 (4.4-11.0)
[2023-06-12 17:33] LABS: ALB/GLOB Ratio 0.9 RATIO (0.9-2.4); AST(SGOT) 18 U/L (15-37); Alanine Aminotransfer ALT/SGPT 21 U/L (13-56); Albumin, Serum 3.4 g/dL (3.2-5.0); Alkaline Phosphatase 100 U/L (45-117); Anion Gap 5 (5-15); BUN 16 mg/dL (7-18); BUN/Creat Ratio 11.3 RATIO (10-20); Calcium,Total 8.3 mg/dL (8.5-10.1); Chloride 106 mmol/L (98-107); Creatinine, Serum 1.41 mg/dL (0.55-1.02); EST Glomerular Filtration Rate 38 mL/min (>60); Est Glom Filt Rate - Afr Amer 46 mL/min (>60); Globulin 3.7 g/dL (2.2-4.2); Glucose 198 mg/dL (74-106); Protein, Total 7.1 g/dL (6.4-8.2); Sodium Level 138 mmol/L (136-145); Thyroid Stim Hormone (TSH) 0.04 uIU/mL (0.358-3.74)
[2023-06-12 19:29] LABS: Hepatitis C Antibody Non-Reactive (Nonreactive); Syphilis Antibodies Non-reactive; Vitamin B12 549 pg/mL (211-911); Vitamin D,25 Hydroxy 41.5 ng/mL
== END | disposition home or self-care (01) ==
LOC: POLAB3 16:00
PROVIDERS: PCP Internal Medicine; Visit Provider Family Medicine Geriatric Medicine
DX: E11.65 Type 2 diabetes mellitus with hyperglycemia (principal); F01.50 Vascular dementia, unspecified severity, without behavioral disturbance, psychotic disturbance, mood disturbance, and anxiety; I10 Essential (primary) hypertension; E55.9 Vitamin D deficiency, unspecified; Z13.89 Encounter for screening for other disorder
CPT/HCPCS: 36415; 80053; 82306; 82607; 82746; 84443; 85025; 86780; 86803

== ENCOUNTER → 2023-07-10 | Outpatient (CLI) | payer MEDICARE, SELFPAY ==
[2023-07-10 17:03] LABS: Thyroid Stim Hormone (TSH) 0.07 uIU/mL (0.358-3.74)
== END | disposition home or self-care (01) ==
LOC: POLAB3 15:25
PROVIDERS: PCP Internal Medicine; Visit Provider Family Medicine Geriatric Medicine
DX: E03.9 Hypothyroidism, unspecified (principal)
CPT/HCPCS: 36415; 84443

== ENCOUNTER → 2023-08-08 | Outpatient (CLI) | payer MEDICARE, SELFPAY | END | disposition home or self-care (01) | LOC: PSN 13:20 | PROVIDERS: PCP Family Medicine Geriatric Medicine; Referring Provider Family Medicine Geriatric Medicine; Visit Provider Family Medicine Geriatric Medicine | DX: R68.83 Chills (without fever) (principal) | CPT/HCPCS: 87631 ==

== ENCOUNTER → 2023-08-14 | Outpatient (CLI) | payer MEDICARE, SELFPAY ==
--- NOTE | 2023-08-14 13:50 | NEURO ---
NCS and/or EMG Patient Report Ordering Doctor: Marco Muñoz Chi DATE OF SERVICE: 08/14/23 [place] plans for electrodiagnostic testing of the upper limbs. She reports numbness and tingling in both hands. Electrodiagnostic findings: Left median motor nerve demonstrates prolonged distal latency with normal amplitude. Right median motor nerve demonstrates normal distal latency and amplitude. Left ulnar motor responses is within normal limits. Right ulnar motor response demonstrates decreased conduction velocity across the elbow. Normal median and ulnar F?waves. Left median sensory latency at the wrist. Absent left median sensory response at the wrist and palm. Needle EMG testing was performed in the upper limbs. All muscles tested showed no evidence of denervation with normal motor unit action potentials. Electrodiagnostic Impression: This is an abnormal study. 1) Findings are suggestive of left sided median mononeuropathy. This is consistent with a moderate left carpal tunnel syndrome. There is no definitive electrodiagnostic evidence for right carpal tunnel syndrome. Multi Select Codes Neurology Neurology Interp Codes: 37999-47 Musc test done w/n test comp (interp) (2) and 58142-67 Nrv cndj test 13/> studies (interp)
== END | disposition home or self-care (01) ==
LOC: PSN 11:53
PROVIDERS: PCP Family Medicine Geriatric Medicine; Referring Provider Family Medicine Geriatric Medicine; Visit Provider Family Medicine Geriatric Medicine
DX: I63.9 Cerebral infarction, unspecified (principal); R20.2 Paresthesia of skin
CPT/HCPCS: 95886; 95913

== ENCOUNTER → 2023-09-05 | Outpatient (CLI) | payer MEDICARE, SELFPAY ==
--- NOTE | 2023-09-05 11:35 | RAD_ITS ---
STUDY: X-RAY - LUMBAR SPINE REASON FOR EXAM: Female, 83 years old. Low back pain. TECHNIQUE: 5 view(s) of the lumbar spine were obtained. COMPARISON: 11/12/2022 FINDINGS: Osteopenia. Normal lumbar lordosis. Slight increase in mild rotatory dextroscoliosis. Normal alignment of the vertebral bodies. Diffuse moderate low thoracic and lumbosacral facet sclerosis. Vertebral plasty changes of L2 unaltered. Loss of height of the L1 and L1-2 vertebral bodies with little change since the comparison study. Endplate concavities compatible with osteoporosis, unchanged. Diffuse intervertebral disc space narrowing with osteophyte formation. Mild vascular calcification. RAD/L/S Spine Min 4 Views IMPRESSION: Stable osteopenia, diffuse spondylosis and loss of height of the L1 and L2 vertebral bodies. No acute abnormality or erosive changes. Electronically Signed: Ceferino Maurer MD at 9:59 EST ,
== END | disposition home or self-care (01) ==
LOC: RAD 11:35
PROVIDERS: PCP Family Medicine Geriatric Medicine; Referring Provider Family Medicine Geriatric Medicine; Visit Provider Family Medicine Geriatric Medicine
DX: M54.50 Low back pain, unspecified (principal)
CPT/HCPCS: 72110

== ENCOUNTER → 2023-09-12 | Outpatient (CLI) | payer MEDICARE, SELFPAY ==
[2023-09-12 14:28] LABS: Absolute Lymphocyte Count 1.97 X10^3/uL (0.83-4.51); Absolute Neutrophil Count 8.4 X10^3/uL (2.0-7.7); Basophil# 0.09 X10^3/uL; Basophil% 0.7 % (0-1); Eosinophils% 7.4 % (0-5); Hematocrit 33.9 % (37-47); Hemoglobin 10.2 g/dL (12.0-15.0); Lymphocyte # 1.97 X10^3/ul (0.83-4.51); Lymphocyte % 16.2 % (19-41); Mean Corp Hgb Conc 30.1 g/dL (32-36); Mean Corpuscular Hgb 26.3 pg (27.0-32.0); Mean Corpuscular Volume 87.4 fL (81-99); Mean Platelet Vol. 10.5 fl (6.2-12.0); Monocyte# 0.72 X10^3/uL; Monocyte% 5.9 % (0-10); NRBC Flagged by Analyzer 0 % (0-5); Platelet Count 297 K/mm3 (150-450); RBC Distribution Width CV 15.1 % (11.6-14.6); RBC Distribution Width SD 48.4 fl (35.1-43.9); Red Blood Count 3.88 M/mm3 (4.2-5.4); White Blood Count 12.2 K/mm3 (4.4-11.0)
[2023-09-12 14:58] LABS: ALB/GLOB Ratio 1.1 RATIO (0.9-2.4); AST(SGOT) 18 U/L (15-37); Alanine Aminotransfer ALT/SGPT 31 U/L (13-56); Albumin, Serum 3.4 g/dL (3.2-5.0); Alkaline Phosphatase 105 U/L (45-117); Anion Gap 3 (5-15); BUN 28 mg/dL (7-18); BUN/Creat Ratio 20.6 RATIO (10-20); Calcium,Total 8.7 mg/dL (8.5-10.1); Chloride 108 mmol/L (98-107); Creatinine, Serum 1.36 mg/dL (0.55-1.02); EST Glomerular Filtration Rate 40 mL/min (>60); Est Glom Filt Rate - Afr Amer 48 mL/min (>60); Globulin 3.1 g/dL (2.2-4.2); Glucose 177 mg/dL (74-106); Potassium 4.1 mmol/L (3.5-5.1); Protein, Total 6.5 g/dL (6.4-8.2); Sodium Level 139 mmol/L (136-145); Thyroid Stim Hormone (TSH) 3.56 uIU/mL (0.358-3.74)
[2023-09-12 16:03] LABS: Vitamin D,25 Hydroxy 23.7 ng/mL
== END | disposition home or self-care (01) ==
LOC: POLAB3 13:53
PROVIDERS: PCP Family Medicine Geriatric Medicine; Visit Provider Family Medicine Geriatric Medicine
DX: E11.65 Type 2 diabetes mellitus with hyperglycemia (principal); E55.9 Vitamin D deficiency, unspecified; I10 Essential (primary) hypertension
CPT/HCPCS: 36415; 80053; 82306; 84443; 85025

== ENCOUNTER → 2023-10-15 | Outpatient (CLI) | payer MEDICARE, SELFPAY | END | disposition home or self-care (01) | LOC: PSN 13:03 | PROVIDERS: PCP Family Medicine Geriatric Medicine; Referring Provider Family Medicine Geriatric Medicine; Visit Provider Family Medicine Geriatric Medicine | DX: R68.83 Chills (without fever) (principal) | CPT/HCPCS: 87631 ==

== ENCOUNTER → 2023-12-11 | Outpatient (CLI) | payer MEDICARE, SELFPAY ==
[2023-12-11 15:19] LABS: Absolute Neutrophil Count 6.3 X10^3/uL (2.0-7.7); Basophil# 0.06 X10^3/uL; Basophil% 0.7 % (0-1); Eosinophil# 0.21 X10^3/uL; Eosinophils% 2.4 % (0-5); Hematocrit 32.9 % (37-47); Hemoglobin 10.4 g/dL (12.0-15.0); Lymphocyte % 20.4 % (19-41); Mean Corp Hgb Conc 31.6 g/dL (32-36); Mean Corpuscular Hgb 27.7 pg (27.0-32.0); Mean Corpuscular Volume 87.5 fL (81-99); Mean Platelet Vol. 10.4 fl (6.2-12.0); Monocyte# 0.46 X10^3/uL; Monocyte% 5.2 % (0-10); NRBC Flagged by Analyzer 0 % (0-5); Neutrophil # 6.27 X10^3/uL (2.7-7.7); Neutrophil % 70.8 % (47-70); Platelet Count 295 K/mm3 (150-450); RBC Distribution Width CV 14.2 % (11.6-14.6); RBC Distribution Width SD 45.3 fl (35.1-43.9); Red Blood Count 3.76 M/mm3 (4.2-5.4); White Blood Count 8.8 K/mm3 (4.4-11.0)
[2023-12-11 15:40] LABS: Vitamin D,25 Hydroxy 32.4 ng/mL
[2023-12-11 15:52] LABS: ALB/GLOB Ratio 0.9 RATIO (0.9-2.4); AST(SGOT) 13 U/L (15-37); Alanine Aminotransfer ALT/SGPT 18 U/L (13-56); Albumin, Serum 3.4 g/dL (3.2-5.0); Alkaline Phosphatase 85 U/L (45-117); Anion Gap 7 (5-15); BUN 17 mg/dL (7-18); BUN/Creat Ratio 13.6 RATIO (10-20); Calcium,Total 8.3 mg/dL (8.5-10.1); Chloride 105 mmol/L (98-107); Creatinine, Serum 1.25 mg/dL (0.55-1.02); EST Glomerular Filtration Rate 44 mL/min (>60); Est Glom Filt Rate - Afr Amer 53 mL/min (>60); Globulin 3.6 g/dL (2.2-4.2); Glucose 221 mg/dL (74-106); Sodium Level 138 mmol/L (136-145); Thyroid Stim Hormone (TSH) 0.05 uIU/mL (0.358-3.74)
== END | disposition home or self-care (01) ==
LOC: LAB 13:58
PROVIDERS: PCP Family Medicine Geriatric Medicine; Referring Provider Family Medicine Geriatric Medicine; Visit Provider Family Medicine Geriatric Medicine
DX: E11.65 Type 2 diabetes mellitus with hyperglycemia (principal); I10 Essential (primary) hypertension; E55.9 Vitamin D deficiency, unspecified
CPT/HCPCS: 36415; 80053; 82306; 84443; 85025

== ENCOUNTER → 2024-01-29 | Outpatient (CLI) | payer MEDICARE, SELFPAY ==
[2024-01-29 13:26] LABS: Thyroid Stim Hormone (TSH) 0.04 uIU/mL (0.358-3.74)
== END | disposition home or self-care (01) ==
LOC: LAB 12:13
PROVIDERS: PCP Family Medicine Geriatric Medicine; Referring Provider Family Medicine Geriatric Medicine; Visit Provider Family Medicine Geriatric Medicine
DX: E03.9 Hypothyroidism, unspecified (principal)
CPT/HCPCS: 36415; 84443

== ENCOUNTER → 2024-02-10 | Outpatient (CLI) | payer MEDICARE, SELFPAY ==
--- NOTE | 2024-02-10 12:47 | MRI_ITS ---
STUDY: MRI LUMBAR SPINE WITHOUT CONTRAST REASON FOR EXAM: Female, 83 years old. RADICULOPATHY TECHNIQUE: Standardized fat and water weighted pulse sequences were obtained in the sagittal and axial planes. COMPARISON: X-ray 09/05/2023 FINDINGS: T12-L1: 5 mm retropulsion of the superior endplate of L1 with a mild bilobed disc protrusion produces moderate spinal stenosis with abutment of the spinal cord and mild bilateral neural foraminal stenosis. Normal lumbar lordosis. Mild dextroscoliosis centered at L3. Normal conus medullaris that terminates at the L1. Moderate loss of height and wedging deformity of the L1 vertebral body without marrow edema consistent with a chronic compression fracture. 5 mm retropulsion of the superior endplate and spinal canal produces moderate spinal stenosis. Mild loss of height and wedging deformity L2 vertebral body without marrow edema and with signal loss consistent with a chronic compression fracture treated with vertebroplasty with 2 mm retropulsion of the superior endplate and spinal canal producing mild spinal stenosis. L1-2: Severe ligamentum flavum hypertrophy. Mild bilobed disc protrusion produces mild spinal stenosis and mild bilateral neural foraminal stenosis. L2-3: Mild bilateral facet hypertrophy and severe ligament flavum hypertrophy. Moderate broad disc protrusion produces severe spinal stenosis with moderate bilateral neural foraminal stenosis. L3-4: Mild bilateral facet hypertrophy with severe ligament flavum hypertrophy. Large broad disc protrusion asymmetric to left produces severe spinal stenosis with severe left lateral recess stenosis with effacement left L4 nerve root and moderate left neural foraminal stenosis with abutment of the left L3 nerve root laterally. L4-5: Mild bilateral postoperative knee and moderate ligament flavum hypertrophy. Moderate broad disc osteophyte complex produces moderate spinal stenosis and moderate bilateral neural foraminal stenosis. L5-S1: Moderate bilateral facet hypertrophy with fluid in the facet joints consistent with instability and severe ligament flavum hypertrophy. Moderate broad disc protrusion produces moderate spinal stenosis and moderate bilateral neural foraminal stenosis. Normal visualized sacral ala. Normal visualized paraspinous soft tissue structures. MRI/Spine Lumbar (Routine) IMPRESSION: 1. Chronic compression fractures of L1 and L2 with vertebroplasty of L2 with retropulsion of the superior end plates producing spinal stenosis. 2. Mild dextroscoliosis and diffuse degenerative disc disease as described above. Electronically Signed: Jamie Hood MD at 15:12 EDT ,
== END | disposition home or self-care (01) ==
PROVIDERS: PCP Family Medicine Geriatric Medicine; Referring Provider Anesthesiology Pain Medicine; Visit Provider Anesthesiology Pain Medicine
DX: M54.16 Radiculopathy, lumbar region (principal)
CPT/HCPCS: 72148

== ENCOUNTER → 2024-03-05 | Outpatient (CLI) | payer MEDICARE, SELFPAY ==
[2024-03-05 14:21] LABS: Absolute Lymphocyte Count 1.68 X10^3/uL (0.83-4.51); Absolute Neutrophil Count 7.6 X10^3/uL (2.0-7.7); Basophil# 0.05 X10^3/uL; Basophil% 0.5 % (0-1); Eosinophil# 0.31 X10^3/uL; Hematocrit 33.3 % (37-47); Hemoglobin 10.5 g/dL (12.0-15.0); Lymphocyte # 1.68 X10^3/ul (0.83-4.51); Lymphocyte % 16.5 % (19-41); Mean Corp Hgb Conc 31.5 g/dL (32-36); Mean Corpuscular Hgb 27.9 pg (27.0-32.0); Mean Corpuscular Volume 88.6 fL (81-99); Mean Platelet Vol. 10.2 fl (6.2-12.0); Monocyte# 0.56 X10^3/uL; Monocyte% 5.5 % (0-10); NRBC Flagged by Analyzer 0 % (0-5); Neutrophil # 7.56 X10^3/uL (2.7-7.7); Platelet Count 278 K/mm3 (150-450); RBC Distribution Width CV 14.6 % (11.6-14.6); RBC Distribution Width SD 46.5 fl (35.1-43.9); Red Blood Count 3.76 M/mm3 (4.2-5.4); White Blood Count 10.2 K/mm3 (4.4-11.0)
[2024-03-05 14:45] LABS: Vitamin D,25 Hydroxy 32.7 ng/mL
[2024-03-05 14:49] LABS: ALB/GLOB Ratio 0.9 RATIO (0.9-2.4); AST(SGOT) 13 U/L (15-37); Alanine Aminotransfer ALT/SGPT 19 U/L (13-56); Albumin, Serum 3.2 g/dL (3.2-5.0); Alkaline Phosphatase 92 U/L (45-117); Anion Gap 7 (5-15); BUN 21 mg/dL (7-18); BUN/Creat Ratio 14.9 RATIO (10-20); Calcium,Total 8.3 mg/dL (8.5-10.1); Chloride 109 mmol/L (98-107); Creatinine, Serum 1.41 mg/dL (0.55-1.02); EST Glomerular Filtration Rate 38 mL/min (>60); Est Glom Filt Rate - Afr Amer 46 mL/min (>60); Globulin 3.6 g/dL (2.2-4.2); Glucose 154 mg/dL (74-106); Potassium 4.2 mmol/L (3.5-5.1); Protein, Total 6.8 g/dL (6.4-8.2); Sodium Level 141 mmol/L (136-145)
== END | disposition home or self-care (01) ==
LOC: POLAB3 13:57
PROVIDERS: PCP Family Medicine Geriatric Medicine; Visit Provider Family Medicine Geriatric Medicine
DX: E11.65 Type 2 diabetes mellitus with hyperglycemia (principal); E55.9 Vitamin D deficiency, unspecified; I10 Essential (primary) hypertension; E03.9 Hypothyroidism, unspecified
CPT/HCPCS: 36415; 80053; 82306; 84443; 85025

== ENCOUNTER → 2024-03-17 | Outpatient (CLI) | payer MEDICARE, SELFPAY ==
[2024-03-17 13:18] LABS: Thyroid Stim Hormone (TSH) 0.322 uIU/mL (0.358-3.740)
== END | disposition home or self-care (01) ==
LOC: LAB 11:13
PROVIDERS: PCP Family Medicine Geriatric Medicine; Referring Provider Family Medicine Geriatric Medicine; Visit Provider Family Medicine Geriatric Medicine
DX: E03.9 Hypothyroidism, unspecified (principal)
CPT/HCPCS: 36415; 84443

== ENCOUNTER → 2024-04-01 | Outpatient (CLI) | payer MEDICARE, SELFPAY | END | disposition home or self-care (01) | LOC: POLAB3 15:02 | PROVIDERS: PCP Family Medicine Geriatric Medicine; Visit Provider Family Medicine Geriatric Medicine | DX: R10.9 Unspecified abdominal pain (principal) | CPT/HCPCS: 87086; 87088 ==

== ENCOUNTER → 2024-04-08 | Outpatient (CLI) | payer MEDICARE, SELFPAY ==
[2024-04-08 13:59] LABS: Bacteria 0 SEEN /hpf (None Seen); Mucous, Urine 0 SEEN /hpf (<or=2+); Red Blood Cells-Urine 0 SEEN /hpf (0-5)
[2024-04-08 14:08] LABS: Color, Urine Yellow (Yellow); Glucose, Dipstick 1000 mg/dl (Normal); Ketone-Dipstick 5 mg/dl (Negative); Leukocyte Esterase-Dipstick 25 /ul (Negative); Nitrite-Dipstick Negative (Negative); Occult Blood-Urine Negative /ul (Negative); Protein-Dipstick 30 mg/dl (Negative); Specific Gravity, Urine 1.025 (1.002-1.030); Urine Bilirubin Dipstick 1 mg/dL (Negative); Urine Clarity Sl. Cloudy (Clear); Urine Urobilinogen Normal (Normal)
[2024-04-08 14:14] LABS: Squamous Epithelial Cells - UA 0-5 SEEN /hpf (5-10); White Blood Cells 0-5 SEEN /hpf (0-5); Yeast-Urine 1+ /hpf (None Seen)
== END | disposition home or self-care (01) ==
LOC: POLAB3 13:57
PROVIDERS: PCP Family Medicine Geriatric Medicine; Visit Provider Family Medicine Geriatric Medicine
DX: N39.0 Urinary tract infection, site not specified (principal)
CPT/HCPCS: 36415; 81001; 87086; 87088

== ENCOUNTER → 2024-04-28 | Outpatient (CLI) | payer MEDICARE, SELFPAY ==
[2024-04-28 17:44] LABS: Thyroid Stim Hormone (TSH) 0.344 uIU/mL (0.358-3.740)
== END | disposition home or self-care (01) ==
LOC: LAB 14:01
PROVIDERS: PCP Family Medicine Geriatric Medicine; Referring Provider Family Medicine Geriatric Medicine; Visit Provider Family Medicine Geriatric Medicine
DX: E03.9 Hypothyroidism, unspecified (principal)
CPT/HCPCS: 36415; 84443

== ENCOUNTER → 2024-05-07 | Outpatient (CLI) | payer MEDICARE, SELFPAY ==
[2024-05-07 13:59] LABS: Hemoglobin A1c 7.8 % (3.8-5.6)
== END | disposition home or self-care (01) ==
LOC: LAB 13:14
PROVIDERS: PCP Family Medicine Geriatric Medicine; Referring Provider Orthopaedic Surgery Orthopaedic Surgery of the Spine; Visit Provider Orthopaedic Surgery Orthopaedic Surgery of the Spine
DX: E11.9 Type 2 diabetes mellitus without complications (principal)
CPT/HCPCS: 36415; 83036

== ENCOUNTER 2024-05-15 14:00 | Outpatient (RCR) | payer MEDICARE, SELFPAY ==
--- NOTE | 2024-04-14 14:58 | HP.PTEVAL_ITS ---
Patient's Visit Information Visit Information Visit Information: NITZA CRUZ is a 84 year old F referred to Physical Therapy by Dr. Marco Muñoz MD with a diagnosis of BACK PAIN AND BALANCE. Date of Evaluation: 04/14/24 Physical Therapist: Mathieu Momin PT, Cert MDT, OCS Visit Plan Frequency: 2x /Week Duration: 4 Weeks Plan: PT INTERVENTIONS POSTURAL EX'S ,DLS ,LUMBAR FLEXION ,STRENGTHENING BLE ,AEROBIC EX'S AND BALANCE PROGRAM Subjective Subjective: This 84 y/o female presents [facility] physical therapy with back pain. Patient developed back pain many years . Patient has h/o falling down stairs 7 years ago[address] Patient seen Dr Howard did MRI Chronic compression fractures of L1 and L2 with vertebroplasty of L2 with retropulsion of the superior end plates,producing spinal stenosis. Mild dextroscoliosis and diffuse degenerative disc disease .X-rays showed diffuse spondylosis and loss of height of the L1 and L2 vertebral bodies.Patient had lumbar injections in past. DR yulissa PT . Location of pain symmetrical LS. Aggravating factors standing/walking. Alleviating factors sitting.Denies paresthesia/tingling-. Bowel/bladder -Patient sleeping okay at night, . Bowel/bladder-. Coughing/sneezing-. Patient comorbities influences condition . Patient condition affects QOL and function. Patient goals to decrease pain. SOCIAL: VOCATION: retired Pain Bilateral Back: Pain Intensity (Out of 10): 3 Pain Intensity Range: 10 Objective Objective: POSTURE: mod forward posture trunk flexed GAIT: forward posture slow jaison reciprocal pattern unsteady PALATION: tender SI/LS NEURO: denies paresthesia/tingling L3-4,L4-;5.L5-S1 1/3 MMT: quad/hams 4/5 ,hip flexion 4-/5 ,ankle 4/5 LUMBAR ROM: flexion mod loss ,extension severe loss ,side glide mod loss FLEXABILITY: mod tight ,piriformis mod tight Special Tests L/S Slump test left side: Negative L/S Slump test right side: Negative L/S Left Straight Leg Raise: Negative L/S Right Straight Leg Raise: Negative Lumbar Standing: Flexion - Mechanical Response: No effect Lumbar Standing: Flexion - Symptoms During Testing: Increases Lumbar Standing: Flexion - Symptoms After Testing: No worse Lumbar Standing: Extension - Mechanical Response: No effect Lumbar Standing: Extension - Symptoms During Testing: Increases Lumbar Standing: Extension - Symptoms After Testing: No worse Lumbar Standing: Right Side Glides - Mechanical Response: No effect Lumbar Standing: Right Side [place] - Symptoms During Testing: No effect Lumbar Standing: Right Side [place] - Symptoms After Testing: No effect Lumbar Standing: Left Side [place] - Mechanical Response: No effect Lumbar Standing: Left Side [place] - Symptoms During Testing: No effect Lumbar Standing: Left Side [place] - Symptoms After Testing: No effect Balance/Special Test Scores Functional Gait Assessment Score: 11 % Disability: 63.3400 CATSIB Score (Max score 120 seconds): 65 Oswestry Low Back Score: 32 Goals Goal 1:: Patient to be I with HEP back and strengthening Goal Time Frame: 4-6 Weeks Goal 2:: Patient to improve lumbar ROM for function of recovery to put on shoes Goal Time Frame: 4-6 Weeks Goal 3:: Patient to demonstrate 40% improvement with less pain and improve function with ADLS Goal Time Frame: 4-6 Weeks Goal 4:: Patient to improve CATSIB score by 5 points to decrease risk of falling Goal Time Frame: 4-6 Weeks Goal 5:: Patient to improve functional gait assessment score by 5 point to improve balance Goal Time Frame: 4-6 Weeks Goal 6:: Patient to improve back oswestry score by 3-5 points to improve QOL Goal Time Frame: 4-6 Weeks Rehabilitation Potential Physical Therapy Diagnosis: This patient has low back pain with stenosis along with decrease balance with comorbities influences condition with decreased gait , decrease lumbar ROM ,pain and decrease balance assessment scores thus benefit from skilled PT Rehabilitation Potential: Fair Anticipated Interventions Patient/Client Instruction: Educate patient on: Condition and Plan of Care For the Purpose of:: To decrease pain, To increase ROM, To improve muscle performance and motor function, To improve ability to perform ADL's, To increase tolerance to activity/condition/position, To improve ability of physical actions for home/community/work/leisure, To improve health of tissue, To decrease soft tissue restriction, To increase flexibility/ROM and To prevent re-injury Therapeutic Exercise to Include: Strength training, Endurance training, Balance training, Body mechanics, Postural training, Flexibilty training and Dynamic Lumbar Stabilization Comment: BLE For the Purpose of:: To decrease pain, To increase ROM, To improve muscle performance and motor function, To improve ability to perform ADL's, To increase tolerance to activity/condition/position, To improve ability of physical actions for home/community/work/leisure, To decrease soft tissue restriction, To increase flexibility/ROM, To improve endurance, To improve balance and To improve tolerance to ADL's Text: Thank you for the opportunity to evaluate your patient. For Medicare and Medicare HMO plans, please review the plan of care and approve it. It will need to be FAXED BACK to us at [phone] for Medicare purposes. For Medicare only, by signing this I certify the plan of care. Please let me know if there are questions or concerns regarding this plan of care. Physician Signature: Date:
--- NOTE | 2024-05-15 14:19 | HP.PTDCSUM ---
Discharge Summary D/C summary: It has been my pleasure to treat NITZA CRUZ referred by Dr. Marco Muñoz MD, with the diagnosis of BACK PAIN AND BALANCE for a total of 7 visit(s). Discharge Date: 05/15/24 Please see the following information for a summary of their discharge status. Subjective Subjective: Doing better but get SOB Pain Bilateral Back: Pain Intensity (Out of 10): 0 Overall Improvement % Improvement: 60 Objective Objective/Function: POSTURE: mod forward posture trunk flexed GAIT: forward posture slow jaison reciprocal pattern unsteady PALATION: tender SI/LS NEURO: denies paresthesia/tingling L3-4,L4-;5.L5-S1 1/3 MMT: quad/hams 4/5 ,hip flexion 4-/5 ,ankle 4/5 LUMBAR ROM: flexion mod loss ,extension severe loss ,side glide mod loss FLEXABILITY: mod tight ,piriformis mod tight Goals Goal 1:: Patient to be I with HEP back and strengthening Goal Progress: Goal Met Goal 2:: Patient to improve lumbar ROM for function of recovery to put on shoes Goal Progress: Goal Met Goal 3:: Patient to demonstrate 40% improvement with less pain and improve function with ADLS Goal Progress: Goal Met Goal 4:: Patient to improve CATSIB score by 5 points to decrease risk of falling Goal Progress: Goal Met Goal 5:: Patient to improve functional gait assessment score by 5 point to improve balance Goal Progress: Progressing Goal 6:: Patient to improve back oswestry score by 3-5 points to improve QOL Plan Plan: D/C TO HEP D/C Information Discharge Comments: HEP d/c sentence: If there are questions or concerns regarding this patient's physical therapy, please feel free to call me at [phone]. Thank you for the referral of this patient. Sincerely, Mathieu Momin, PT, Cert MDT, OCS Balance/Gait/Functional tests Balance/Special Test Scores Functional Gait Assessment Score: 11 % Disability: 63.3400 CATSIB Score (Max score 120 seconds): 75 Oswestry Low Back Score: 22 Improvement % Improvement: 60
== END 2024-05-15 19:00 | disposition home or self-care (01) ==
LOC: PT 14:00
PROVIDERS: PCP Family Medicine Geriatric Medicine; Referring Provider Family Medicine Geriatric Medicine; Visit Provider Family Medicine Geriatric Medicine
DX: M48.061 Spinal stenosis, lumbar region without neurogenic claudication (principal); M54.9 Dorsalgia, unspecified; R26.89 Other abnormalities of gait and mobility
CPT/HCPCS: 97110; 97162; 97530

== ENCOUNTER → 2024-06-03 | Outpatient (CLI) | payer MEDICARE, SELFPAY | END | disposition home or self-care (01) | LOC: LAB 14:18 | PROVIDERS: PCP Family Medicine Geriatric Medicine; Referring Provider Family Medicine Geriatric Medicine; Visit Provider Family Medicine Geriatric Medicine | DX: E03.9 Hypothyroidism, unspecified (principal) | CPT/HCPCS: 36415; 84443 ==

== ENCOUNTER → 2024-06-15 | Outpatient (CLI) | payer MEDICARE, SELFPAY ==
[2024-06-15 14:09] LABS: Absolute Lymphocyte Count 2.05 X10^3/uL (0.83-4.51); Absolute Neutrophil Count 8.4 X10^3/uL (2.0-7.7); Basophil# 0.08 X10^3/uL; Basophil% 0.7 % (0-1); Eosinophil# 0.36 X10^3/uL; Eosinophils% 3.1 % (0-5); Hematocrit 35.6 % (37-47); Hemoglobin 11.2 g/dL (12.0-15.0); Lymphocyte # 2.05 X10^3/ul (0.83-4.51); Lymphocyte % 17.7 % (19-41); Mean Corp Hgb Conc 31.5 g/dL (32-36); Mean Corpuscular Hgb 27.5 pg (27.0-32.0); Mean Corpuscular Volume 87.5 fL (81-99); Mean Platelet Vol. 10.6 fl (6.2-12.0); Monocyte% 5.2 % (0-10); NRBC Flagged by Analyzer 0 % (0-5); Neutrophil # 8.39 X10^3/uL (2.7-7.7); Neutrophil % 72.6 % (47-70); Platelet Count 307 K/mm3 (150-450); RBC Distribution Width CV 14.5 % (11.6-14.6); RBC Distribution Width SD 46.2 fl (35.1-43.9); Red Blood Count 4.07 M/mm3 (4.2-5.4); White Blood Count 11.6 K/mm3 (4.4-11.0)
[2024-06-15 14:40] LABS: ALB/GLOB Ratio 0.9 RATIO (0.9-2.4); AST(SGOT) 13 U/L (15-37); Alanine Aminotransfer ALT/SGPT 16 U/L (13-56); Albumin, Serum 3.6 g/dL (3.2-5.0); Alkaline Phosphatase 89 U/L (45-117); Anion Gap 9 (5-15); BUN 15 mg/dL (7-18); BUN/Creat Ratio 10.2 RATIO (10-20); Calcium,Total 7.7 mg/dL (8.5-10.1); Chloride 106 mmol/L (98-107); Creatinine, Serum 1.47 mg/dL (0.55-1.02); EST Glomerular Filtration Rate 36 mL/min (>60); Est Glom Filt Rate - Afr Amer 44 mL/min (>60); Globulin 3.8 g/dL (2.2-4.2); Glucose 199 mg/dL (74-106); Potassium 3.9 mmol/L (3.5-5.1); Protein, Total 7.4 g/dL (6.4-8.2); Sodium Level 141 mmol/L (136-145)
[2024-06-15 14:51] LABS: Vitamin D,25 Hydroxy 24.8 ng/mL
== END | disposition home or self-care (01) ==
LOC: POLAB3 13:53
PROVIDERS: PCP Family Medicine Geriatric Medicine; Visit Provider Family Medicine Geriatric Medicine
DX: E11.65 Type 2 diabetes mellitus with hyperglycemia (principal); I10 Essential (primary) hypertension; E55.9 Vitamin D deficiency, unspecified
CPT/HCPCS: 36415; 80053; 82306; 84443; 85025

== ENCOUNTER → 2024-06-29 | Outpatient (CLI) | payer MEDICARE, SELFPAY | END | disposition home or self-care (01) | LOC: POLAB3 11:10 | PROVIDERS: PCP Family Medicine Geriatric Medicine; Visit Provider Family Medicine Geriatric Medicine | DX: N39.0 Urinary tract infection, site not specified (principal) | CPT/HCPCS: 87086; 87088 ==

== ENCOUNTER → 2024-07-03 | Outpatient (CLI) | payer MEDICARE, SELFPAY ==
--- NOTE | 2024-07-03 14:54 | ART_ITS ---
Reason For Study: BLE Claudication Procedure A bilateral lower extremity continuous wave Doppler with analog waveform analysis and ankle brachial indexes. Left Segmental Pressures Left brachial= 146mmHg. Left posterior tibial artery = >254mmHg. Left dorsalis pedis artery = 192mmHg. Left digit = 136 mmHg. The left posterior tibial artery waveforms are triphasic. The left dorsalis pedis waveforms are triphasic. Right Segmental Pressures Right brachial= 150mmHg. Right posterior tibial artery = >254mmHg. Right dorsalis pedis artery = 176mmHg. Right digit = 151 mmHg. The right posterior tibial artery waveforms are triphasic. The right dorsalis pedis waveforms are triphasic. Indices The right ankle brachial index by the posterior tibial artery is N/C. The right ankle brachial index by the dorsalis pedis is 1.17. The right digital-brachial index is 1.01. The left ankle brachial index by the posterior tibial artery is N/C. The left ankle brachial index by the dorsalis pedis is 1.28. The left digital-brachial index is 0.91. VL/Ankle Brachial Index Interpretation Summary Triphasic Doppler waveforms are noted at ankle level bilaterally. Pulse-volume recordings appear satisfactory at ankle and digital levels bilaterally. Resting ankle-brachial in dices are normal bilaterally. Digital-brachial indices are normal bilaterally. There is no evidence of significant arterial occlusive disease in the lower ext remities bilaterally. Ordering Physician: Marco Muñoz Chi Referring Physician: MARCO MUÑOZ CHI, MD Performed By: Miguel Bhagat, RVT
== END | disposition home or self-care (01) ==
LOC: CVS 14:52
PROVIDERS: PCP Family Medicine Geriatric Medicine; Referring Provider Family Medicine Geriatric Medicine; Visit Provider Family Medicine Geriatric Medicine
DX: I73.9 Peripheral vascular disease, unspecified (principal); R29.898 Other symptoms and signs involving the musculoskeletal system
CPT/HCPCS: 93922

== ENCOUNTER 2024-07-08 07:32 | Day surgery (SDC) | payer MEDICARE, SELFPAY ==
[2024-07-08] VITALS (8 sets, daily range): BP systolic 122–166; BP diastolic 64–76; PULSE 75–83; RESP 16–17; TEMP 36.4–36.7; O2SAT 92–100; BMI 30.8
[2024-07-08 08:29] LABS: Bedside Glucose 159 mg/dL (74-106)
--- NOTE | 2024-07-08 08:33 | HP.PCM_ITS ---
HPI - General HPI Narrative NITZA CRUZ, is a 84 F who presents for a left endoscopic carpal tunnel release. No changes to history and physical exam. Left wrist marked. Risks alternatives benefits. Counseling on RAB, post op instructions, and narcotic counseling done. The patient understands no further questions wishes to proceed. MR#: [id number] Acct: [id number] Name: NITZA GRIGSBY Rep #: [id number] : 1940 Provider: Dr. Matt Galindo MD Age/Sex: 84/F Location: [facility] [place] Status: Signed Intake Vital Signs 05/05/2413:26 Height 5 ft 6 in Weight: 194 lb BMI 31.3 Intake Visit Reasons: LEFT HAND Chief Complaint: left hand Allergies naproxen (From Naprosyn) Allergy (Verified 05/29/24 13:55) HivesPenicillins (PCN) Allergy (Verified 05/29/24 13:55) Hivesguaifenesin (From Mucinex) Adverse Reaction (Verified 05/29/24 13:55) Unknownketoprofen Adverse Reaction (Verified 05/29/24 13:55) Unknownloracarbef (From Lorabid) Adverse Reaction (Verified 05/29/24 13:55) Unknownvenom-honey bee Adverse Reaction (Verified 05/29/24 13:55) NEEDS FOLLOW-UP Medications ?Medication ?Instructions ?Recorded ?Confirmed ?Type hydrochlorothiazide 25 mg tablet 25 mg PO DAILY Diuretic 08/09/13 05/29/24 History omeprazole 20 mg capsule,delayed 20 mg PO DAILY Heart Burn 08/09/13 05/29/24 History release clopidogrel 75 mg tablet (Plavix) 75 mg PO DAILY 07/08/20 05/29/24 History levothyroxine 200 mcg tablet 200 mcg PO DAILY 07/08/20 05/29/24 History rosuvastatin 5 mg tablet 10 mg PO DAILY cholestrol 07/08/20 05/29/24 History amitriptyline 25 mg tablet 75 mg PO QHS 08/19/20 05/29/24 History losartan 100 mg tablet 100 mg PO DAILY 08/19/20 05/29/24 History metformin 500 mg tablet,extended 1,000 mg PO BID 08/19/20 05/29/24 History release 24 hr metoprolol succinate 100 mg 100 mg PO DAILY 08/19/20 05/29/24 History tablet,extended release 24 hr baclofen 10 mg tablet 10 mg PO QDAY 05/05/24 05/29/24 History gabapentin 100 mg capsule 100 mg PO QDAY 05/05/24 05/29/24 History galantamine 16 mg 24 hr 16 mg PO QAM 05/05/24 05/29/24 History capsule,extended release galantamine 8 mg tablet 8 mg PO BID 05/05/24 05/29/24 History furosemide 40 mg tablet 40 mg PO QDAY 05/29/24 05/29/24 History Have you fallen in the past year?: No PFSH Medical History Left carpal tunnel syndrome Nonrheumatic aortic (valve) stenosis History of CVA (cerebrovascular accident) (01/2018) Hyperlipidemia Essential hypertension Asthma Polyclonal gammopathy Heart disease Herpes zoster MGUS (monoclonal gammopathy of unknown significance) Thyromegaly Acquired hypothyroidism Vitamin B12 deficiency Vitamin D deficiency Dementia Opioid use, unspecified, uncomplicated Arteriosclerosis of both carotid arteries Fatty liver Osteoarthritis Bilateral sciatica Osteopenia Stress incontinence Memory impairment Depressed mood Weakness Chronic fatigue Hyperglycemia Lumbar compression fracture Post-polio syndrome Acute gastroenteritis CKD (chronic kidney disease) stage 3, GFR 30-59 ml/min Esophageal reflux History of pancreatitis History of abdominal pain Type 2 diabetes mellitus Obesity Surgical History H/O cataract removal with insertion of prosthetic lens History of cholecystectomy Family History Aunt CancerSister DiabetesFather Hypercholesteremia Myocardial infarctionMother Hypertension Diabetes CAD (coronary artery disease)Other Heart disease Social History household members: spouse Smoking Status: Never smoker Electronic Cigarette Use: not used alcohol intake: never substance use type: does not use HPI LEFT HAND Details: This documentation accurately reflects the service provided and the decisions made by me, Dr. Matt Galindo MD 05/29/24 1116. Part of today?s visit was documented by [ ], acting as scribe. NITZA CRUZ is a 84 year old F here today for left carpal tunnel syndrome. The patient had a previous injection by Dr. Toni earlier this year. here with Bill her . 6 months. tingling. no numbness. every day. worse in the morning. comes and goes. whole hand. RHD. work - retired. Supplemental Info [facility]Neurology [address] [place] [address] MR#: [id number] Acct: [id number] Name: NITZA GRIGSBY Rep #: [id number] : 1940 83 From: Omkar Kenyon MD Referring Dr: Marco Muñoz MD Status: REG CLI Location: [facility] Date: 08/14/23 Sex: F C NCS and/or EMG Patient Report Ordering Doctor: Marco Muñoz Chi DATE OF SERVICE: 08/14/23 Nitza plans for electrodiagnostic testing of the upper limbs. She reports numbness and tingling in both hands. Electrodiagnostic findings: Left median motor nerve demonstrates prolonged distal latency with normal amplitude. Right median motor nerve demonstrates normal distal latency and amplitude. Left ulnar motor responses is within normal limits. Right ulnar motor response demonstrates decreased conduction velocity across the elbow. Normal median and ulnar F?waves. Left median sensory latency at the wrist. Absent left median sensory response at the wrist and palm. Needle EMG testing was performed in the upper limbs. All muscles tested showed no evidence of denervation with normal motor unit action potentials. Electrodiagnostic Impression: This is an abnormal study. 1) Findings are suggestive of left sided median mononeuropathy. This is consistent with a moderate left carpal tunnel syndrome. There is no definitive electrodiagnostic evidence for right carpal tunnel syndrome. Multi Select Codes Neurology Neurology Interp Codes: 10879-45 Musc test done w/n test comp (interp) (2) and 58384-63 Nrv cndj test 13/> studies (interp) Coding Level of Care Code Off vis,new,level 4 Diagnoses Left carpal tunnel syndrome G56.02 Assessment and Plan Assessment and Plan (1) Left carpal tunnel syndrome: Status: Acute Plan: NITZA CRUZ is a 84 year old F here today for left carpal tunnel syndrome. Patient had a prior open right carpal tunnel release in the past. Patient counseled on the diagnosis prognosis different treatment options available including but not limited to rest ice anti-inflammatories active modifications physical therapy nerve gliding cortisone injections as well as open or endoscopic surgery. Patient counseled this can become worse or more permanent with time. There is also a difference in surgical outcomes in my experience in patients over 80 with moderate or severe problems as well as more longstanding carpal tunnel syndrome the results become more unreliable. I let the patient know. I also explained a different strain endoscopic and open possibly quicker return to function work or other activities lower pain levels with endoscopic versus possibly higher chance of incomplete release. The patient understands wishes to go ahead with left endoscopic carpal tunnel release. Signed the consent for surgery. They understood we will get a clearance from Dr. Muñoz in regards to the Plavix. Increased chance of risk of infection or other surgical complications related to the patient's diabetes. The hemoglobin A1c is slightly over 7 - I did let the patient know that these risks become less with tighter glucose control and hemoglobin A1c is lower. Pros and cons risks and benefits were discussed with the patient including but not limited to infection, pain, stiffness, bleeding, damage to surrounding structures, neurovascular injury, recurrence or retear, failure or wear of hardw are or fixation, instability, fracture, deep vein thrombosis and pulmonary embolism, anesthetic risks, , patient dissatisfaction, need for further surgery and other risks. Patient understood and wished to proceed with surgery, and signed the informed consent documentation. Clinical Quality Measures Falls Risk Screening/Assistive Devices Have you fallen in the past year?: No Ortho Exam General General: Yes no acute distress Neurologic: Yes alert and Yes oriented x3 Psychologic: Yes reasonable and appropriate Right Wrist/Hand Skin/Wound: No Swelling and No Ecchymosis Left Wrist/Hand Skin/Wound: Yes CDI, No Swelling, No Ecchymosis, Yes nail intact, Yes capillary refill normal and No erythema Left Wrist: Yes ROM-Extension 0-60, Yes ROM-Flexion 0-80, Yes ROM-Pronation 0- 80, Yes ROM-Supination 0-90, Yes Durken's Test, Yes Tinel's (neg at elbow) and Yes Phalen's; No Thenar Atrophy and No Hypothenar Atrophy Motor: EPL: 5, FDP-2: 5, 1st Dorsal Interosseous: 5 and APB: 5 Sensation: Radial: I, Ulnar: I and Median: D [facility] Medical History Wears partial dentures Wears glasses History of steroid therapy Thyroid disease Diabetes High cholesterol Injury of back Gastric reflux Non-smoker Shortness of breath on exertion History of echocardiogram History of stress test Hypertension History of rheumatic fever Cardiology follow-up encounter History of irregular heartbeat History of trigger finger Left carpal tunnel syndrome Nonrheumatic aortic (valve) stenosis History of CVA (cerebrovascular accident) (01/2018) Hyperlipidemia Essential hypertension Asthma Polyclonal gammopathy Heart disease Herpes zoster MGUS (monoclonal gammopathy of unknown significance) Thyromegaly Acquired hypothyroidism Vitamin B12 deficiency Vitamin D deficiency Dementia Opioid use, unspecified, uncomplicated Arteriosclerosis of both carotid arteries Fatty liver Osteoarthritis Bilateral sciatica Osteopenia Stress incontinence Memory impairment Depressed mood Weakness Chronic fatigue Hyperglycemia Lumbar compression fracture Post-polio syndrome Acute gastroenteritis CKD (chronic kidney disease) stage 3, GFR 30-59 ml/min Esophageal reflux History of pancreatitis History of abdominal pain Type 2 diabetes mellitus Obesity Home Medications ?Medication ?Instructions ?Recorded ?Last Taken ?Type hydrochlorothiazide 25 mg tablet 25 mg PO DAILY Diuretic 08/09/13 05/23/23 History omeprazole 20 mg capsule,delayed 20 mg PO DAILY Heart Burn 08/09/13 05/23/23 History release clopidogrel 75 mg tablet (Plavix) 75 mg PO DAILY 07/08/20 07/03/24 History amitriptyline 25 mg tablet 75 mg PO TID 08/19/20 05/23/23 History losartan 100 mg tablet 100 mg PO DAILY 08/19/20 07/08/24 History metformin 500 mg tablet,extended 1,000 mg PO BID 08/19/20 05/23/23 History release 24 hr metoprolol succinate 100 mg 100 mg PO DAILY 08/19/20 07/08/24 06:00 History tablet,extended release 24 hr baclofen 10 mg tablet 10 mg PO QDAY 05/05/24 Unknown History gabapentin 100 mg capsule 100 mg PO QHS 05/05/24 Unknown History buspirone 10 mg tablet 10 mg PO BID 06/30/24 Unknown History levothyroxine 137 mcg tablet 137 mcg PO SUSA 06/30/24 Unknown History levothyroxine 150 mcg tablet 150 mcg PO DAILY 06/30/24 Unknown History Allergy/AdvReac Type Severity Reaction Status Date / Time naproxen (From Naprosyn) Allergy Hives Verified 07/08/24 07:55 Penicillins (PCN) Allergy Hives Verified 07/08/24 07:55 venom-honey bee AdvReac Severe Swelling Verified 07/08/24 07:55 guaifenesin (From Mucinex) AdvReac Unknown Verified 07/08/24 07:55 ketoprofen AdvReac Unknown Verified 07/08/24 07:55 loracarbef (From Lorabid) AdvReac Unknown Verified 07/08/24 07:55 Family History Aunt Cancer Sister Diabetes Father Hypercholesteremia Myocardial infarction Mother Hypertension Diabetes CAD (coronary artery disease) Other Heart disease Surgical History Hx of knee surgery History of partial hysterectomy H/O cataract removal with insertion of prosthetic lens History of cholecystectomy Social History household members: spouse Smoking Status: Never smoker Electronic Cigarette Use: not used alcohol intake: never substance use type: does not use Vital Signs Vital Signs Vital Signs: 07/08/24 07:57 Temperature 97.6 F L Temperature Source Temporal Pulse Rate 82 Respiratory Rate 16 Blood Pressure 166/76 H Blood Pressure Mean 106 Blood Pressure Source Monitor Blood Pressure Position Semi-Fowlers Blood Pressure Location Right Arm Pulse Ox 100 Oxygen Delivery Method Room Air Weight Weight: 191 lb Body Mass Index (BMI) 30.8 Results Lab / Micro Data Labs: Laboratory Results - last 24 hr 07/08/24 08:01: POC Glucose 159 H
--- NOTE | 2024-07-08 08:34 | PCM.PRE.AN2 ---
ASA Classification* ASA Classification ASA Classification: 3 Assessment & Plan Anesthesia* Anesthesia Assessment Anesthesia Assessment: Discussed sedation and/or anesthesia options, risks, benefits, and alternatives with patient/parents/legal guardian/POA. Questions invited. The patient/parents/legal guardian/POA seems to understand and agrees to proceed with anesthesia plan. Reviewed the physical assessment, medical history, allergy history and patient home medications list prior to surgery/procedure/anesthetic and documented any changes. Performed airway and anesthesia risk assessments. Anesthesia Type Anesthesia Type: MAC Anesthesia Focused Assessment* Temperature: 97.6 F Pulse Rate: 82 Blood Pressure: 166/76 Respiratory Rate: 16 Pulse Ox: 100 Airway Assessment Mouth opens: >3 cm Mallampati Score: II Focused Labs Anesthesia Preop lab: CBC WBC 11.6 K/mm3 (4.4-11.0) H 06/15/24 13:53 RBC 4.07 M/mm3 (4.2-5.4) L 06/15/24 13:53 Hgb 11.2 g/dL (12.0-15.0) L 06/15/24 13:53 Hct 35.6 % (37-47) L 06/15/24 13:53 Plt Count 307 K/mm3 (150-450) 06/15/24 13:53 CHEMISTRY Potassium 3.9 mmol/L (3.5-5.1) 06/15/24 13:53 Sodium 141 mmol/L (136-145) 06/15/24 13:53 Magnesium 1.6 mg/dL (1.6-2.6) 08/31/18 06:20 BUN 15 mg/dL (7-18) 06/15/24 13:53 Creatinine 1.47 mg/dL (0.55-1.02) H 06/15/24 13:53 Glucose 199 mg/dL (74-106) H 06/15/24 13:53 POC Glucose 159 mg/dL (74-106) H 07/08/24 08:01 TSH 2.810 uIU/mL (0.358-3.740) 06/15/24 13:53 COAG PT 12.3 SECONDS (11.7-14.9) 05/24/23 11:15 Pre-Assessment Diagnosis/Proposed Procedure Planned Operative Procedure(s): Left Endoscopic Carpal Tunnel Release Anesthesia History Anesthesia History - technical services rep: Anesthesia History - technical services rep Hx Hospitalization No 06/30/24 14:30 Any Problems With Anesthesia No 06/30/24 14:30 Cholinesterase deficiency No 06/30/24 14:30 You/Your Family Experience No 06/30/24 14:30 fever (hyperthermia) with Relationship Recent Exposure to Contagious No 07/08/24 07:57 Disease Does patient have nerve No 06/30/24 14:30 stimulator Patient instructed to have device shut off --Does patient have Pacemaker No 07/08/24 07:57 or ICD? When Was Last Pacemaker Check QUESTION #4 FULL TEXT: You/Your Family Experience fever (hyperthermia) with Anesthesia Last Oral Intake Last Oral intake: Last Oral Intake NPO since 06:00 07/08/24 07:57 Meds taken in AM with sips of Yes 07/08/24 07:57 water? Meds patient instructed to SEE MAR 07/08/24 07:57 take am of surgery PONV PONV - technical services rep: PONV - technical services rep Female Yes 06/30/24 14:30 HX of Motion Sickness No 06/30/24 14:30 HX of N/V After Surgery No 06/30/24 14:30 Non-Smoker Yes 06/30/24 14:30 Duration of Surgery greater No 06/30/24 14:30 than 60 minutes Number of Risk Factors 2 06/30/24 14:30 PONV Score Moderate Risk 06/30/24 14:30 Height & Weight Height & Weight: Anesthesia: Height & Weight Height 5 ft 6 in 07/08/24 07:57 Weight: 86.636 kg 07/08/24 07:57 Body Mass Index (BMI) 30.8 07/08/24 07:57 Respiratory Assessment Respiratory Assessment - technical services rep: Respiratory Tract Infection Hx - technical services rep Hx Respiratory Tract Infection No 06/30/24 14:30 STOP Sleep Apnea STOP Sleep Apnea - technical services rep: STOP Sleep Apnea - technical services rep Hx Hypertension Yes: CONTROLLED ON MED 06/30/24 14:30 Hx Sleep Apnea No 06/30/24 14:30 CPAP No 06/30/24 14:30 BIPAP No 06/30/24 14:30 Do you snore loudly (louder No 06/30/24 14:30 than talking or can be heard Do you often feel tired/ No 06/30/24 14:30 fatigued/ sleepy during daytime? Has anyone observed you stop No 06/30/24 14:30 breathing during sleep? STOP Results Negative 06/30/24 14:30 QUESTION #5 FULL TEXT : Do you snore loudly (louder than talking or can be heard through closed doors)? Tobacco Use History Tobacco Use History - technical services rep: Tobacco Use History - technical services rep Tobacco Use Non-smoker 05/25/23 11:02 Smoking Status Never smoker 06/30/24 14:30 Hx Tobacco Use No 06/30/24 14:30 Years Smoking Packs Smoked per Day Smoking Cessation Date was within the last 15 years Hx Smoking Cessation Date Hx Smoking Cessation No 06/30/24 14:30 Counseling Hematologic Medial History Hematologic Hx - technical services rep: Hematologic Medical Hx - retirement officer Hx of Blood Transfusion No 06/30/24 14:30 Hx of Transfusion in last 3 No 06/30/24 14:30 Months Date of Last Transfusion (if within last 3 months) Ever experience any problems No 06/30/24 14:30 with transfusion(s)? Specify any problems Hx of Preganancy in last 3 No 06/30/24 14:30 Months Nurse Filling Out Transfusion VCHRISTIN 06/30/24 14:30 & Questions: Date: 06/30/24 06/30/24 14:30 Time: 14:31 06/30/24 14:30 Patient unable to answer at this time (ie. confused, unrespo /Reproduction History /Reproductive History - technical services rep: /Reproductive Hx- technical services rep Hx Now Gestational Age (in weeks): EDC: Hx Hx Para Hx Section SAB Active Medications Active Medications: Current Medications Generic Name Dose Route Start Last Admin Trade Name Freq PRN Reason Stop Dose Admin Cefazolin Sodium 2 gm/ N/A 20 mls @ 400 mls/hr 07/08/24 09:35 IV 07/08/24 09:37 [facility] Medical History Wears partial dentures Wears glasses History of steroid therapy Thyroid disease Diabetes High cholesterol Injury of back Gastric reflux Non-smoker Shortness of breath on exertion History of echocardiogram History of stress test Hypertension History of rheumatic fever Cardiology follow-up encounter History of irregular heartbeat History of trigger finger Left carpal tunnel syndrome Nonrheumatic aortic (valve) stenosis History of CVA (cerebrovascular accident) (01/2018) Hyperlipidemia Essential hypertension Asthma Polyclonal gammopathy Heart disease Herpes zoster MGUS (monoclonal gammopathy of unknown significance) Thyromegaly Acquired hypothyroidism Vitamin B12 deficiency Vitamin D deficiency Dementia Opioid use, unspecified, uncomplicated Arteriosclerosis of both carotid arteries Fatty liver Osteoarthritis Bilateral sciatica Osteopenia Stress incontinence Memory impairment Depressed mood Weakness Chronic fatigue Hyperglycemia Lumbar compression fracture Post-polio syndrome Acute gastroenteritis CKD (chronic kidney disease) stage 3, GFR 30-59 ml/min Esophageal reflux History of pancreatitis History of abdominal pain Type 2 diabetes mellitus Obesity Home Medications ?Medication ?Instructions ?Recorded ?Last Taken ?Type hydrochlorothiazide 25 mg tablet 25 mg PO DAILY Diuretic 08/09/13 05/23/23 History omeprazole 20 mg capsule,delayed 20 mg PO DAILY Heart Burn 08/09/13 05/23/23 History release clopidogrel 75 mg tablet (Plavix) 75 mg PO DAILY 07/08/20 07/03/24 History amitriptyline 25 mg tablet 75 mg PO TID 08/19/20 05/23/23 History losartan 100 mg tablet 100 mg PO DAILY 08/19/20 07/08/24 History metformin 500 mg tablet,extended 1,000 mg PO BID 08/19/20 05/23/23 History release 24 hr metoprolol succinate 100 mg 100 mg PO DAILY 08/19/20 07/08/24 06:00 History tablet,extended release 24 hr baclofen 10 mg tablet 10 mg PO QDAY 05/05/24 Unknown History gabapentin 100 mg capsule 100 mg PO QHS 05/05/24 Unknown History buspirone 10 mg tablet 10 mg PO BID 06/30/24 Unknown History levothyroxine 137 mcg tablet 137 mcg PO SUSA 06/30/24 Unknown History levothyroxine 150 mcg tablet 150 mcg PO DAILY 06/30/24 Unknown History Allergy/AdvReac Type Severity Reaction Status Date / Time naproxen (From Naprosyn) Allergy Hives Verified 07/08/24 07:55 Penicillins (PCN) Allergy Hives Verified 07/08/24 07:55 venom-honey bee AdvReac Severe Swelling Verified 07/08/24 07:55 guaifenesin (From Mucinex) AdvReac Unknown Verified 07/08/24 07:55 ketoprofen AdvReac Unknown Verified 07/08/24 07:55 loracarbef (From Lorabid) AdvReac Unknown Verified 07/08/24 07:55 Family History Aunt Cancer Sister Diabetes Father Hypercholesteremia Myocardial infarction Mother Hypertension Diabetes CAD (coronary artery disease) Other Heart disease Surgical History Hx of knee surgery History of partial hysterectomy H/O cataract removal with insertion of prosthetic lens History of cholecystectomy Social History household members: spouse Smoking Status: Never smoker Electronic Cigarette Use: not used alcohol intake: never substance use type: does not use Review of Systems (Anesthesia) ROS Narrative System reviewed and no additional complaints, except as documented.
[2024-07-08] MEDS: Cefazolin 2 GM in Syringe IV (08:53)
[2024-07-08] MEDS: Bupivacaine 0.25% 30 ML Vial (09:06)
--- NOTE | 2024-07-08 09:37 | PCM.OPRPT ---
Problems Associated Problem List Diagnoses (1) Left carpal tunnel syndrome: Procedures Musculoskeletal 20xxx-29xxx: Other Procedure See Report Operative Report (Standard) Operative Information Date of Procedure: 07/08/24 Pre-Operative Diagnosis: L carpal tunnel syndrome Post-Operative Diagnosis: same Surgery/Procedure Performed: Left endoscopic carpal tunnel release camp program director: No Type of Anesthesia: Local MAC RN Documented Start/Stop Times: Operation Date: 07/08/24 09:35 Case Time Into Pre-Op 07/08/24 07:41 Out of Pre-Op 07/08/24 08:50 Anesthesia Start 07/08/24 08:53 Into Room 07/08/24 08:53 Procedure Start 07/08/24 09:07 Procedure End 07/08/24 09:29 Anesthesia End 07/08/24 09:33 Out of Room 07/08/24 09:33 Procedure Start Time: 09:07 Procedure Stop Time: 09:29 Select all DRAINS/GRAFTS/IMPLANTS that apply: None Estimated Blood Loss: 10 Specimen collected: No Description of surgery: Patient brought to the operating room theater. Placed upon on the table. Local/MAC induced by the anesthetic team. Patient placed supine on the table all bony prominences padded. SCDs on the legs. Bed turned 90 degrees. Hand table used. Tourniquet applied properly padded to the upper extremity. Upper extremity prepped and draped in the usual sterile fashion with chlorhexidine-based prep solution allowing over 3 minutes drying time prior to draping. Preoperative timeout performed to confirm the site patient and the surgery. Began by elevating the limb and inflated the tourniquet to 250 mmHg. I used the [employer] center line endoscopic carpal tunnel kit / technique. I made a transverse 2 cm incision in line with the? transverse wrist crease.? This was in line with the fourth digit.? I carried the dissection down through skin and subcutaneous tissue achieved meticulous hemostasis. Just ulnar to palmaris tendon.? I incised the antebrachial fascia.? I passed sequential dilators into the carpal tunnel along the radial border of the Guyon's canal aiming for the fourth digit with the hand in extension.? I used a synovial elevator to identify the transverse fibers of the transverse carpal tunnel ligament.? Passed the scope into the carpal tunnel. Once I had identified the full proximal and distal extent of the ligament I fully released the ligament under direct visualization by deploying the blade and slowly withdrawing the scope made sequential passes until I no longer felt tension as well as the entire extent of the ligament was released under direct visualization.? Sounded the tunnel with mccurdy tenotomy scissors, complete release, no bands. Arthroscope light was more visible through the skin. Pictures taken and saved. Wounds thoroughly irrigated.? 4cc 0.25% bupivicaine for local anesthesia. Tourniquet let down prior to end of the case and meticulous hemostasis achieved.? Thorough irrigation.? ? Incisions closed with 3-0 vicryl and 3-0 moncryl for the skin.?Then adaptic 4x4 gauze and chayito. Patient woken up,? transferred off the operating room table and taken to postanesthetic care unit in stable condition. All sponge needle instrument counts were correct no complications.?Plan for the patient to be discharged home according to day surgery criteria when they are comfortable. Follow-up in the office in 2 days time. Gentle ROM hand and elbow no heavy lifting. cpt 99455 Surgical Findings: carpal tunnel syndrome Complications Complications: No Admit VTE Documentation VTE Present on Admission: No VTE Mechan Device Prophylaxis: SCD's VTE Pharm Prophylaxis ordered?: No Reason prophylaxis not ordered: Treatment Not Indicated
--- NOTE | 2024-07-08 09:39 | EX.PCM.DISCH ---
Discharge Instructions Diet Discharge Diet: No restrictions Activity Ice area for (Minutes): 10 Lifting Restrictions: no heavy lifting or gripping Keep extremity elevated above heart level: Operative Extremity Dressing / Incision Call your doctor if your incision/area has: Continuous Slow Oozing, Sudden Increased Bleeding, Increased Pain/ Swelling, Increased Redness, Foul Smelling Discharge and Swelling at the incision site Call your doctor if you observe: Fever of 101 or Higher, Coldness, Increased Pain and Numbness or Tingling Change Dressing in: leave in place till F/U Cleanse incision/area with: Do not get Incision Wet Follow Up Care Please Follow Up With: Matt Galindo MD When: 2 days Test Results: Test results from this visit will be discussed in further detail at your follow-up appointment, if applicable. Discharge Plan Admission Attending Provider: Matt Galindo Primary Care Provider: Marco Muñoz Chi Instructions Print Language: [place] Discharge Orders/Prescriptions Prescriptions: No Action clopidogrel [Plavix] 75 mg tablet 75 mg PO DAILY amitriptyline 25 mg tablet 75 mg PO TID Patient Comments: PT TAKES ONE IN AM & 2 AT BEDTIME metoprolol succinate 100 mg tablet extended release 24 hr 100 mg PO DAILY losartan 100 mg tablet 100 mg PO DAILY baclofen 10 mg tablet 10 mg PO QDAY gabapentin 100 mg capsule 100 mg PO QHS omeprazole 20 MG capsule,delayed release(DR/EC) 20 mg PO DAILY Patient Comments: ACID REFLUX hydrochlorothiazide 25 MG tablet 25 mg PO DAILY Patient Comments: WATER PILL metformin 500 mg tablet extended release 24 hr 1,000 mg PO BID levothyroxine 137 mcg tablet 137 mcg PO SUSA buspirone 10 mg tablet 10 mg PO BID levothyroxine 150 mcg tablet 150 mcg PO DAILY Referrals / Follow Up: Matt Galindo MD [Med Staff - Active Staff] - Marco Muñoz Chi, MD [Primary Care Provider] - Disposition Disposition (needs filled in before D/C Order can be placed): Home, Self Care
--- NOTE | 2024-07-08 10:30 | PCM.POST.ANE ---
Anesthesia: Postop Eval I Current Vital Signs Temperature: 97.8 F Pulse Rate: 75 Blood Pressure: 131/75 Respiratory Rate: 17 Pulse Ox: 98 Oxygen Delivery Method: Room Air Assessment Airway patent: Yes Spontaneous unlabored respirations: Yes Mental status: Awake and Calm nausea: No Vomiting: No Anesthesia Complication: No Fluid Hydration Crystalloid volume administer (ml): 30 Total IV fluid infused: 30 Progress Note Anesthesia document: Postop Eval 1 completed: Yes
--- NOTE | 2024-07-08 11:28 | POSTOPAN2_ITS ---
Anesthesia Postop Eval I Sum Postop Eval Completion status Anesthesia document: Postop Eval 1 completed: Yes Anesthesia Postop Eval I Summary Anesthesia Postop Eval I Summary: Anesthesia Postop Eval I: Assessment Summary Airway patent Yes 07/08/24 10:30 [email or web address] Spontaneous unlabored Yes 07/08/24 10:30 [email or web address] respirations Mental status Awake,Calm 07/08/24 10:30 [email or web address] nausea No 07/08/24 10:30 [email or web address] Vomiting No 07/08/24 10:30 [email or web address] Anesthesia Postop Eval I: Fluid Summary Crystalloid volume administer 30 07/08/24 10:30 [email or web address] (ml) Colloids volume administered ( ml) Blood Product volume administered (ml) Total IV fluid infused 30 07/08/24 10:30 [email or web address] Anesthesia Postop Eval I: Summary Notes Anesthesia Complication No 07/08/24 10:30 [email or web address] Anesthesia Complication Comment: Post-operative progress note Anesthesia: Postop Eval II Evaluation Mental status: Awake Pain Level: 1 nausea: No Vomiting: No
--- NOTE | 2024-07-08 11:28 | PCM.POSTANE2 ---
Anesthesia Postop Eval I Sum Postop Eval Completion status Anesthesia document: Postop Eval 1 completed: Yes Anesthesia Postop Eval I Summary Anesthesia Postop Eval I Summary: Anesthesia Postop Eval I: Assessment Summary Airway patent Yes 07/08/24 10:30 [email or web address] Spontaneous unlabored Yes 07/08/24 10:30 [email or web address] respirations Mental status Awake,Calm 07/08/24 10:30 [email or web address] nausea No 07/08/24 10:30 [email or web address] Vomiting No 07/08/24 10:30 [email or web address] Anesthesia Postop Eval I: Fluid Summary Crystalloid volume administer 30 07/08/24 10:30 [email or web address] (ml) Colloids volume administered ( ml) Blood Product volume administered (ml) Total IV fluid infused 30 07/08/24 10:30 [email or web address] Anesthesia Postop Eval I: Summary Notes Anesthesia Complication No 07/08/24 10:30 [email or web address] Anesthesia Complication Comment: Post-operative progress note Anesthesia: Postop Eval II Evaluation Mental status: Awake Pain Level: 1 nausea: No Vomiting: No
== END 2024-07-08 10:41 | disposition home or self-care (01) ==
LOC: SDC 07:33 → AC 07:35
PROVIDERS: PCP Family Medicine Geriatric Medicine; Referring Provider Orthopaedic Surgery Sports Medicine; Visit Provider Orthopaedic Surgery Sports Medicine
PROC: (CPT 29848; principal; 2024-07-08 09:20)
DX: G56.02 Carpal tunnel syndrome, left upper limb (principal); E11.22 Type 2 diabetes mellitus with diabetic chronic kidney disease; N18.30 Chronic kidney disease, stage 3 unspecified; I12.9 Hypertensive chronic kidney disease with stage 1 through stage 4 chronic kidney disease, or unspecified chronic kidney disease; E03.9 Hypothyroidism, unspecified; Z79.84 Long term (current) use of oral hypoglycemic drugs; Z79.899 Other long term (current) drug therapy; Z79.02 Long term (current) use of antithrombotics/antiplatelets; Z86.73 Personal history of transient ischemic attack (TIA), and cerebral infarction without residual deficits
CPT/HCPCS: 29848; 01810; 82962; A4216; J2405

== ENCOUNTER → 2024-07-17 | Outpatient (CLI) | payer MEDICARE, SELFPAY ==
--- NOTE | 2024-07-17 13:32 | BD_ITS ---
STUDY: DUAL ENERGY X-RAY ABSORPTIOMETRY / DXA REASON FOR EXAM: Female, 84 years old. Postmenopausal TECHNIQUE: Bone Mineral Density (BMD) measurements of lumbar spine and bilateral hips were obtained. COMPARISON: No direct comparison. MRI lumbar spine, 02/10/2024 known lumbar fractures presumptively osteoporotic compression fractures FINDINGS: Lumbar Spine (L3 and L4): g/cm2 (1.174) / T-score (0.7) / Z-score (3.6) Left Femur Total: g/cm2 (0.934) / T-score (-0.1) / Z-score (2.2) Left Femoral Neck: g/cm2 (0.63) / T-score (-1.5) / Z-score (1.0) Right Femur Total: g/cm2 (0.838) / T-score (-0.9) / Z-score (1.4) Right Femoral Neck: g/cm2 (0.643) / T-score (-1.9) / Z-score (0.6) This is a baseline examination. BD/Dexa Bone Density Study IMPRESSION: The patient is considered osteopenic based on bone mineral density for lung as outlined below according to World [place] Organization (WHO) criteria. Given the known osteoporotic compression fractures, this patient is considered osteoporotic with a high fracture risk. Reference Information: The T-score is the number of standard deviations above or below the standard which is normal for young adults at their peak bone mineral density. The World Health Organization (WHO) interprets the T-scores as follows: Above -1 Normal bone density Between -1 and -2.5 Osteopenia Equal to / or below -2.5 Osteoporosis As a practical clinical guideline, osteopenia may be graded as follows: Mild -1 through -1.5 Moderate -1.6 through -2.0 Severe -2.1 through -2.4 The Z-score is the number of standard deviations above or below age-matched controls. A Z-score of less than -1.5 would be considered abnormal. References: 1. NIH Osteoporosis and Related Bone Diseases http://www.osteo.org 2. International Society for Clinical Densitometry http://www.iscd.org 3. National Osteoporosis Foundation http://www.nof.org Electronically Signed: Gray Beal DO at 23:52 EST ,
== END | disposition home or self-care (01) ==
LOC: OPBD 13:28
PROVIDERS: PCP Family Medicine Geriatric Medicine; Referring Provider Family Medicine Geriatric Medicine; Visit Provider Family Medicine Geriatric Medicine
DX: M81.0 Age-related osteoporosis without current pathological fracture (principal)
CPT/HCPCS: 77080

== ENCOUNTER 2024-09-01 14:17 | Outpatient (CLI) | payer MEDICARE, SELFPAY ==
[2024-09-01 14:30] VITALS: BP 125/55; PULSE 67; RESP 16; TEMP 36.2; O2SAT 93; BMI 29.0
[2024-09-01] MEDS: 0.9% Normal Saline (1000mL) 1,000 ML 999 ML IV (14:30)
[2024-09-01 15:39] VITALS: BP 124/57; PULSE 69; RESP 16
== END 2024-09-01 23:59 | disposition home or self-care (01) ==
LOC: MEDOUTP 14:17
PROVIDERS: PCP Family Medicine Geriatric Medicine; Referring Provider Family Medicine Geriatric Medicine; Visit Provider Family Medicine Geriatric Medicine
DX: E86.0 Dehydration (principal)
CPT/HCPCS: 96360; A4216

== ENCOUNTER → 2024-09-01 | Outpatient (CLI) | payer MEDICARE, SELFPAY ==
--- NOTE | 2024-09-01 16:00 | CT_ITS ---
EXAM: BRAIN/HEAD WITHOUT CONTRAST CLINICAL HISTORY: Dizziness. COMPARISON: None. TECHNIQUE: Transaxial computerized tomographic images were obtained from base of skull to vertex, per standard departmental protocol, using automatic exposure control (radiation dose reduction software) to obtain a diagnostic image quality scan with patient dose as low as reasonably achievable. Coronal and sagittal images were reconstructed. Soft tissue and bone windows are reviewed. FINDINGS: No intracranial hemorrhage, mass effect, or midline shift. Martin-white matter differentiation is maintained without CT findings of acute infarct. No cerebral edema or sulcal effacement. Moderate global parenchymal atrophy. Chronic microvascular ischemia. Absent [place] ocular lenses. Paranasal sinuses and mastoids are clear. CT/Brain/Head without Contrast IMPRESSION: No acute abnormal intracranial finding. Parenchymal atrophy and chronic microvascular ischemia. Reading Location: [id number]
== END | disposition home or self-care (01) ==
LOC: CT 15:54
PROVIDERS: PCP Family Medicine Geriatric Medicine; Referring Provider Family Medicine Geriatric Medicine; Visit Provider Family Medicine Geriatric Medicine
DX: R42 Dizziness and giddiness (principal)
CPT/HCPCS: 70450

== ENCOUNTER → 2024-09-02 | Outpatient (CLI) | payer MEDICARE, SELFPAY ==
[2024-09-02 13:55] LABS: Absolute Neutrophil Count 7.7 X10^3/uL (2.0-7.7); Basophil# 0.08 X10^3/uL; Basophil% 0.7 % (0-1); Eosinophil# 0.38 X10^3/uL; Eosinophils% 3.5 % (0-5); Hematocrit 33.9 % (37-47); Hemoglobin 10.9 g/dL (12.0-15.0); Lymphocyte % 18.4 % (19-41); Mean Corp Hgb Conc 32.2 g/dL (32-36); Mean Corpuscular Hgb 27.7 pg (27.0-32.0); Mean Corpuscular Volume 86.3 fL (81-99); Mean Platelet Vol. 10.4 fl (6.2-12.0); Monocyte# 0.59 X10^3/uL; Monocyte% 5.4 % (0-10); NRBC Flagged by Analyzer 0 % (0-5); Neutrophil # 7.74 X10^3/uL (2.7-7.7); Neutrophil % 71.4 % (47-70); Platelet Count 268 K/mm3 (150-450); RBC Distribution Width CV 14.5 % (11.6-14.6); RBC Distribution Width SD 45.3 fl (35.1-43.9); Red Blood Count 3.93 M/mm3 (4.2-5.4); White Blood Count 10.9 K/mm3 (4.4-11.0)
[2024-09-02 14:29] LABS: ALB/GLOB Ratio 0.9 RATIO (0.9-2.4); AST(SGOT) 9 U/L (15-37); Alanine Aminotransfer ALT/SGPT 13 U/L (13-56); Albumin, Serum 3.4 g/dL (3.2-5.0); Alkaline Phosphatase 79 U/L (45-117); Anion Gap 8 (5-15); BUN 16 mg/dL (7-18); BUN/Creat Ratio 12.1 RATIO (10-20); Calcium,Total 8.6 mg/dL (8.5-10.1); Chloride 106 mmol/L (98-107); Creatinine, Serum 1.32 mg/dL (0.55-1.02); EST Glomerular Filtration Rate 41 mL/min (>60); Est Glom Filt Rate - Afr Amer 49 mL/min (>60); Globulin 3.8 g/dL (2.2-4.2); Glucose 134 mg/dL (74-106); Protein, Total 7.2 g/dL (6.4-8.2); Sodium Level 141 mmol/L (136-145)
== END | disposition home or self-care (01) ==
PROVIDERS: PCP Family Medicine Geriatric Medicine; Referring Provider Family Medicine Geriatric Medicine; Visit Provider Family Medicine Geriatric Medicine
DX: R53.83 Other fatigue (principal)
CPT/HCPCS: 36415; 80053; 84443; 85025

== ENCOUNTER → 2024-11-09 | Outpatient (CLI) | payer MEDICARE, SELFPAY ==
[2024-11-09 18:26] LABS: CRP 6.46 mg/L (0.0-3.0)
[2024-11-09 18:31] LABS: Anion Gap 14 (5-15); BUN 17 mg/dL (4-19); BUN/Creat Ratio 13.5 RATIO (10-20); Calcium,Total 7.7 mg/dL (7.6-11.0); Carbon Dioxide 23.6 mmol/L (21.0-32.0); Chloride 103 mmol/L (98-108); Creatinine, Serum 1.29 mg/dL (0.70-1.20); EST Glomerular Filtration Rate 41 (>60); Glucose 127 mg/dL (70-99); Sodium Level 140 mmol/L (133-145)
[2024-11-09 19:09] LABS: Absolute Lymphocyte Count 1.81 X10^3/uL (0.83-4.51); Absolute Neutrophil Count 5.7 X10^3/uL (2.0-7.7); Basophil# 0.08 X10^3/uL; Basophil% 0.9 % (0-1); Eosinophil# 0.34 X10^3/uL; Hematocrit 30.1 % (37-47); Hemoglobin 9.5 g/dL (12.0-15.0); Lymphocyte # 1.81 X10^3/ul (0.83-4.51); Lymphocyte % 21.2 % (19-41); Mean Corp Hgb Conc 31.6 g/dL (32-36); Mean Corpuscular Hgb 27.4 pg (27.0-32.0); Mean Corpuscular Volume 86.7 fL (81-99); Mean Platelet Vol. 10.8 fl (6.2-12.0); Monocyte# 0.58 X10^3/uL; Monocyte% 6.8 % (0-10); NRBC Flagged by Analyzer 0 % (0-5); Neutrophil # 5.68 X10^3/uL (2.7-7.7); Neutrophil % 66.5 % (47-70); Platelet Count 258 K/mm3 (150-450); RBC Distribution Width CV 14.4 % (11.6-14.6); RBC Distribution Width SD 44.8 fl (35.1-43.9); Red Blood Count 3.47 M/mm3 (4.2-5.4); White Blood Count 8.5 K/mm3 (4.4-11.0)
[2024-11-09 20:13] LABS: Erythrocyte Sedimentation Rate 12 mm/hr (0-30)
[2024-11-11 11:00] LABS: Iron Binding Capacity,Total 265 ug/dL (250-450)
[2024-11-11 11:01] LABS: Iron 42 ug/dL (50-170); Iron Binding Capacity,Unsat 223 ug/dL (228-428); PERCENT IRON SATURATION 15.8 % (13-59)
== END | disposition home or self-care (01) ==
LOC: LAB 15:59
PROVIDERS: PCP Family Medicine Geriatric Medicine; Referring Provider Family Medicine Geriatric Medicine; Visit Provider Family Medicine Geriatric Medicine
DX: D64.9 Anemia, unspecified (principal); N18.32 Chronic kidney disease, stage 3b; R22.0 Localized swelling, mass and lump, head; R53.83 Other fatigue
CPT/HCPCS: 36415; 80048; 83540; 83550; 85025; 85652; 86140

== ENCOUNTER → 2024-11-11 | Outpatient (CLI) | payer MEDICARE, SELFPAY | END | disposition home or self-care (01) | LOC: LABSPEC 14:16 | PROVIDERS: PCP Family Medicine Geriatric Medicine; Referring Provider Family Medicine Geriatric Medicine; Visit Provider Family Medicine Geriatric Medicine | DX: D64.9 Anemia, unspecified (principal) | CPT/HCPCS: 82274 ==

== ENCOUNTER → 2024-12-16 | Outpatient (CLI) | payer MEDICARE, SELFPAY ==
[2024-12-16 15:48] LABS: Absolute Neutrophil Count 6.9 X10^3/uL (2.0-7.7); Basophil# 0.05 X10^3/uL; Basophil% 0.5 % (0-1); Eosinophil# 0.18 X10^3/uL; Eosinophils% 1.8 % (0-5); Lymphocyte % 20.5 % (19-41); Mean Corp Hgb Conc 32.3 g/dL (32-36); Mean Corpuscular Hgb 28.1 pg (27.0-32.0); Mean Corpuscular Volume 87.1 fL (81-99); Mean Platelet Vol. 10.9 fl (6.2-12.0); Monocyte# 0.55 X10^3/uL; Monocyte% 5.6 % (0-10); NRBC Flagged by Analyzer 0 % (0-5); Neutrophil # 6.93 X10^3/uL (2.7-7.7); Neutrophil % 71.1 % (47-70); Platelet Count 266 K/mm3 (150-450); RBC Distribution Width CV 14.3 % (11.6-14.6); RBC Distribution Width SD 45.9 fl (35.1-43.9); Red Blood Count 3.56 M/mm3 (4.2-5.4); White Blood Count 9.8 K/mm3 (4.4-11.0)
[2024-12-17 11:14] LABS: ALB/GLOB Ratio 1.3 RATIO (0.9-2.4); AST(SGOT) 23 U/L (<=31); Alanine Aminotransfer ALT/SGPT 9 U/L (<=34); Albumin, Serum 3.8 g/dL (3.4-4.8); Alkaline Phosphatase 71 U/L (35-104); Anion Gap 14 (5-15); BUN 19 mg/dL (4-19); BUN/Creat Ratio 15.4 RATIO (10-20); Calcium,Total 8.9 mg/dL (7.6-11.0); Carbon Dioxide 23.7 mmol/L (21.0-32.0); Chloride 103 mmol/L (98-108); Creatinine, Serum 1.26 mg/dL (0.70-1.20); EST Glomerular Filtration Rate 42 (>60); Globulin 2.9 g/dL (2.2-4.2); Glucose 122 mg/dL (70-99); Potassium 4.5 mmol/L (3.3-5.1); Protein, Total 6.7 g/dL (5.9-8.4); Sodium Level 140 mmol/L (133-145); Total Bilirubin 0.41 mg/dL (0.00-1.30); Vitamin D,25 Hydroxy 49.9 ng/mL (30-100)
== END | disposition home or self-care (01) ==
LOC: LAB 13:59
PROVIDERS: PCP Internal Medicine; Referring Provider Family Medicine Geriatric Medicine; Visit Provider Family Medicine Geriatric Medicine
DX: E11.65 Type 2 diabetes mellitus with hyperglycemia (principal); E55.9 Vitamin D deficiency, unspecified; I10 Essential (primary) hypertension
CPT/HCPCS: 36415; 80053; 82306; 84443; 85025

== ENCOUNTER → 2025-05-04 | Outpatient (CLI) | payer MEDICARE, SELFPAY ==
[2025-05-04 15:26] LABS: Hematocrit 32.3 % (37-47); Hemoglobin 10.5 g/dL (12.0-15.0); Immature Granulocytes Count 0.030 X10^3/uL (0.0-0.0); Mean Corp Hgb Conc 32.5 g/dL (32-36); Mean Corpuscular Volume 89.5 fL (81-99); Mean Platelet Vol. 10.5 fl (6.2-12.0); NRBC Flagged by Analyzer 0 % (0-5); Platelet Count 230 K/mm3 (150-450); RBC Distribution Width CV 13.9 % (11.6-14.6); RBC Distribution Width SD 45.3 fl (35.1-43.9); Red Blood Count 3.61 M/mm3 (4.2-5.4); White Blood Count 9.0 K/mm3 (4.4-11.0)
== END | disposition home or self-care (01) ==
LOC: POLAB3 14:51
PROVIDERS: PCP Internal Medicine; Visit Provider Family Medicine Geriatric Medicine
DX: R68.83 Chills (without fever) (principal); D64.9 Anemia, unspecified
CPT/HCPCS: 36415; 85025; 87631

== ENCOUNTER → 2025-06-21 | Outpatient (CLI) | payer MEDICARE, SELFPAY ==
[2025-06-21 11:20] LABS: Hematocrit 36.4 % (37-47); Hemoglobin 11.5 g/dL (12.0-15.0); Immature Granulocytes Count 0.030 X10^3/uL (0.0-0.0); Mean Corp Hgb Conc 31.6 g/dL (32-36); Mean Corpuscular Volume 91.7 fL (81-99); Mean Platelet Vol. 10.4 fl (6.2-12.0); NRBC Flagged by Analyzer 0 % (0-5); Platelet Count 298 K/mm3 (150-450); RBC Distribution Width CV 14.3 % (11.6-14.6); RBC Distribution Width SD 47.8 fl (35.1-43.9); Red Blood Count 3.97 M/mm3 (4.2-5.4); White Blood Count 9.1 K/mm3 (4.4-11.0)
[2025-06-21 11:56] LABS: AST(SGOT) 24 U/L (<=31); Alanine Aminotransfer ALT/SGPT 19 U/L (<=34); Albumin, Serum 4.4 g/dL (3.4-4.8); Alkaline Phosphatase 78 U/L (35-104); Anion Gap 12 (5-15); BUN 19 mg/dL (4-19); BUN/Creat Ratio 15.8 RATIO (10-20); Calcium,Total 9.8 mg/dL (7.6-11.0); Carbon Dioxide 25.8 mmol/L (21.0-32.0); Chloride 103 mmol/L (98-108); Globulin 2.9 g/dL (2.2-4.2); Glucose 131 mg/dL (70-99); Potassium 4.1 mmol/L (3.3-5.1)
[2025-06-21 19:08] LABS: Xtra Tube Kwok EXTRA TUBE
== END | disposition home or self-care (01) ==
LOC: POLAB3 11:07
PROVIDERS: PCP Family Medicine Geriatric Medicine; Visit Provider Family Medicine Geriatric Medicine
DX: I10 Essential (primary) hypertension (principal); E03.9 Hypothyroidism, unspecified
CPT/HCPCS: 36415; 80053; 84443; 85025